=== PATIENT | female | born 1975 | race Caucasian/White ===

== ENCOUNTER 2022-12-20 08:16 | Outpatient (OUT) | payer OTHER, SELFPAY ==
--- NOTE | 2022-12-20 08:23 | XR_ITS ---
The [address] [address] Patient Name: GAMAL FIGUEROA MRN: [id number] date: 1975 Sex: F Assigned Patient Location: SURGOUT Current Patient Location: [facility] Accession/Order Number: [id number] Exam Date: 12/20/2022 09:24 Report Date: 12/20/2022 09:37 At the request of: NEDA CACERES Procedure: XR chest 2V EXAM: XR chest 2V HISTORY: PRE-OP EXAMINATION COMPARISON: None. TECHNIQUE: PA and lateral views of the chest. FINDINGS: The cardiomediastinal silhouette is normal. No focal consolidation is identified. There is no pneumothorax. No pleural effusion is noted. The osseous structures are intact. IMPRESSION: No acute cardiopulmonary process. Electronically authenticated by: DENZEL CONROY Date: 12/20/2022 09:37
[2022-12-20 09:28] LABS: Basophils Absolute Auto 0.1 10^3/uL (0.0-0.1); Basophils Percent Auto 1.5 % (0.2-2.0); Eosinophils Absolute Auto 0.5 10^3/uL (0.0-0.7); Eosinophils Percent Auto 6.4 % (0.9-7.0); Hematocrit 42.5 % (36.0-48.0); Hemoglobin 13.7 g/dL (12.0-16.0); Immature Granulocytes Abs Auto 0.01 10^3/uL (0.00-0.03); Immature Granulocytes Pct Auto 0.1 % (0.0-0.5); Lymphocytes Absolute Auto 2.3 10^3/uL (1.2-3.8); Lymphocytes Percent Auto 31.5 % (20.5-60.0); Mean Corpuscular HGB Conc 32.2 g/dL (29.9-35.2); Mean Corpuscular Hemoglobin 29.1 pg (26.7-34.0); Mean Corpuscular Volume 90.4 fL (81.0-99.0); Mean Platelet Volume 10.6 fL (9.5-13.5); Monocytes Absolute Auto 0.6 10^3/uL (0.3-0.8); Monocytes Percent Auto 8.2 % (1.7-12.0); Neutrophils Absolute Auto 3.9 10^3/uL (1.4-6.5); Neutrophils Percent Auto 52.3 % (43.0-75.0); Platelet Count 236 10^3/uL (150-450); White Blood Count 7.4 10^3/uL (4.0-11.0)
[2022-12-20 09:45] LABS: Partial Thromboplastin Time 25.6 sec (22.3-36.2); Prothrombin Time 9.8 sec (9.0-11.6)
[2022-12-20 09:46] LABS: INR <0.93
[2022-12-20 09:54] LABS: Magnesium 1.8 mg/dL (1.8-2.4); Phosphorus 3.9 mg/dL (2.6-4.7); Thyroid Stimulating Hormone 0.375 uIU/mL (0.358-3.740)
== END 2022-12-20 08:17 | disposition home or self-care (01) ==
LOC: PST 08:17
PROVIDERS: Otolaryngology; PCP Nurse Practitioner
DX: Z01.812 Encounter for preprocedural laboratory examination (principal); Z01.811 Encounter for preprocedural respiratory examination; E07.9 Disorder of thyroid, unspecified
CPT/HCPCS: 36415; 71046; 82310; 83735; 84100; 84443; 85025; 85610; 85730

== ENCOUNTER 2023-01-10 10:33 | Day surgery (SDC) | payer OTHER, SELFPAY ==
[2022-12-20 08:50] VITALS: PULSE 82; TEMP 36.5; O2SAT 98; BMI 37.8
[2023-01-10] VITALS (13 sets, daily range): BP systolic 113–144; BP diastolic 73–89; PULSE 88–107; RESP 12–25; TEMP 36.2–36.3; O2SAT 88–100; BMI 37.6
--- NOTE | 2023-01-10 | OP_ITS ---
OPERATION DATE: ??01/10/2023 PRIMARY CARE PHYSICIAN:? Yuriy Martins M.D. SURGEON:? Rosette Tillman M.D. NYLON WINDER:? ZANDRA Mcknight PREOPERATIVE DIAGNOSIS:? Thyroid mass. POSTOPERATIVE DIAGNOSIS:? Thyroid mass. PROCEDURE:? Removal of thyroid adenoma. ANESTHESIA:? General endotracheal. COMPLICATIONS:? None. FINDINGS:? A 2 cm mass of right paramedian pyramidal lobe.? Frozen section benign. INDICATIONS:? This 47-year-old woman presented with an enlarging extra-thyroidal mass immediately superior to the thyroid isthmus, most consistent with a pyramidal lobe mass.? Frozen section was obtained which showed atypia of undetermined significance.? PROCEDURE:? Patient identified in the holding area and taken back to the OR where she was placed in the supine position.? After induction of general anesthesia, a transverse incision was mapped out following the natural skin crease, two finger breadths above the sternal notch.? The neck was prepped and draped in a sterile fashion. ?Lidocaine 1% with 1:100,000 epinephrine was injected into the incision and, after waiting adequate time for hemostasis, a 10-blade was used to make an incision.? Dissection was carried out with electrocautery through the platysma and the subplatysmal flaps were raised superiorly and inferiorly.? A thyroid retractor was then put in position and the strap muscles were incised in the midline and elevated off of the mass, which was immediately evident.? Then, using sharp and blunt dissection and harmonic scalpel, the mass was dissected free of the larynx and its attachment to the thyroid isthmus.? There was a fairly large caliber vein overlying the mass and this was transected and ligated.? The mass was sent for frozen section, which was benign.? The wound was copiously irrigated.? The strap muscles were re- approximated in the midline, after verifying that there was no bleeding whatsoever, and then the skin was closed with two deep 4-0 Vicryl suture layers and a running 5-0 Monocryl stitch.? A dressing was then placed and the patient was awakened and taken to the recovery room in good condition. ROBBIE
[2023-01-10] MEDS: LACTATED RINGER'S SOLUTION 1,000 ML 50 ML IV (10:56)
[2023-01-10] MEDS: CEFAZOLIN SODIUM/DEXTROSE,ISO 2 GM/50 ML PIGGYBACK IV (13:02)
[2023-01-10] MEDS: LIDOCAINE HCL 1%-EPINEPHRINE 1:100,000 10 ML MDV INJ (13:38)
[2023-01-10] MEDS: BACITRACIN OINTMENT 28.4 GM TUBE 1 APPLIC TOPICAL (14:14)
--- NOTE | 2023-01-10 14:26 | PC.NURSE ---
1342 FAMILY UPDATED 1426 FAMILY UPDATED
--- NOTE | 2023-01-10 16:18 | PC.NURSE ---
Patient is hot and sweaty had a small emesis of mucus. Offered antiemetic but patient refused at this time. feels better after emesis. Currently eating popsicle.
--- NOTE | 2023-01-10 16:51 | PC.NURSE ---
Patient tolerated a popsicle. Nausea is gone but says she is hot. Feeling better at discharge. Thankful for all the help. IV was removed intact and tolerated well.
== END 2023-01-10 16:40 | disposition home or self-care (01) ==
PROVIDERS: PCP Nurse Practitioner; Visit Provider Otolaryngology
PROC: (CPT 320; principal; 2023-01-10 11:50)
DX: E07.9 Disorder of thyroid, unspecified (principal); K50.90 Crohn's disease, unspecified, without complications; F31.9 Bipolar disorder, unspecified; K21.9 Gastro-esophageal reflux disease without esophagitis; G47.33 Obstructive sleep apnea (adult) (pediatric); E66.01 Morbid (severe) obesity due to excess calories; Z86.16 Personal history of COVID-19; I27.20 Pulmonary hypertension, unspecified; Z90.710 Acquired absence of both cervix and uterus; Z98.51 Tubal ligation status; Z68.37 Body mass index [BMI] 37.0-37.9, adult
CPT/HCPCS: 00320; 60200; 36415; 88305; 88331; 95865; 95940; J2704

== ENCOUNTER 2023-03-25 08:49 | Outpatient (OUT) | payer OTHER, SELFPAY ==
[2023-03-25 09:37] LABS: Basophils Absolute Auto 0.1 10^3/uL (0.0-0.1); Basophils Percent Auto 1.5 % (0.2-2.0); Eosinophils Absolute Auto 0.6 10^3/uL (0.0-0.7); Eosinophils Percent Auto 8.7 % (0.9-7.0); Hematocrit 40.6 % (36.0-48.0); Hemoglobin 13.2 g/dL (12.0-16.0); Immature Granulocytes Abs Auto 0.01 10^3/uL (0.00-0.03); Immature Granulocytes Pct Auto 0.1 % (0.0-0.5); Lymphocytes Absolute Auto 2.5 10^3/uL (1.2-3.8); Lymphocytes Percent Auto 37.6 % (20.5-60.0); Mean Corpuscular HGB Conc 32.5 g/dL (29.9-35.2); Mean Corpuscular Hemoglobin 29.6 pg (26.7-34.0); Mean Platelet Volume 10.7 fL (9.5-13.5); Monocytes Absolute Auto 0.6 10^3/uL (0.3-0.8); Monocytes Percent Auto 8.8 % (1.7-12.0); Neutrophils Absolute Auto 2.9 10^3/uL (1.4-6.5); Neutrophils Percent Auto 43.3 % (43.0-75.0); Platelet Count 239 10^3/uL (150-450); Red Blood Count 4.46 10^6/uL (4.20-5.40); Red Cell Distribution Width 12.7 % (11.0-15.0); White Blood Count 6.7 10^3/uL (4.0-11.0)
[2023-03-25 10:51] LABS: Free T4 1.26 ng/dL (0.76-1.46)
[2023-03-25 11:05] LABS: Alanine Aminotransferase 18 U/L (14-59); Albumin Globulin Ratio 0.9; Albumin Level 3.3 g/dL (3.4-5.0); Alkaline Phosphatase 57 U/L (46-116); Anion Gap 9.4; Aspartate Amino Transferase 13 U/L (15-37); Bilirubin Direct 0.1 mg/dL (0.0-0.2); Bilirubin Total 0.5 mg/dL (0.2-1.0); Calcium 8.7 mg/dL (8.5-10.1); Carbon Dioxide 29.7 mmol/L (21.0-32.0); Chloride 105 mmol/L (98-107); Cholesterol 237 mg/dL (<=200); Estimated GFR (African America >60 (>=60); Estimated GFR (Non-African Ame >60 (>=60); Globulin 3.7 g/dL; Glucose 90 mg/dL (74-106); HDL Cholesterol 59 mg/dL (40-60); Potassium 4.1 mmol/L (3.5-5.1); Sodium 140 mmol/L (136-145); Thyroid Stimulating Hormone 0.817 uIU/mL (0.358-3.740); Triglycerides 120 mg/dL (<=150)
== END 2023-03-25 08:50 | disposition home or self-care (01) ==
LOC: LAB 08:52
PROVIDERS: PCP Nurse Practitioner; Visit Provider Nurse Practitioner
DX: E78.5 Hyperlipidemia, unspecified (principal); E89.0 Postprocedural hypothyroidism
CPT/HCPCS: 36415; 80048; 80061; 80076; 84439; 84443; 85025

== ENCOUNTER 2023-05-24 16:30 | Outpatient (OUT) | payer OTHER, SELFPAY ==
--- NOTE | 2023-05-24 | XR_ITS ---
The [address] [address] Patient Name: GAMAL FIGUEROA MRN: [id number] date: 1975 Sex: F Assigned Patient Location: [facility] Current Patient Location: Accession/Order Number: [id number] Exam Date: 05/24/2023 16:36 Report Date: 05/25/2023 10:00 At the request of: NADIR DOMINGUEZ Procedure: XR abdomen 1V EXAM: XR abdomen 1V HISTORY: Kidney stone COMPARISON: None. TECHNIQUE: AP view of the abdomen. FINDINGS: Nonobstructive bowel gas pattern is noted. There is no suspicious calcification. The osseous structures are intact. XR/XR abdomen 1V IMPRESSION: Nonobstructive bowel gas pattern. Constipation. Electronically authenticated by: DENZEL CONROY Date: 05/25/2023 10:00
== END 2023-05-24 16:31 | disposition home or self-care (01) ==
LOC: RAD 16:30
PROVIDERS: PCP Nurse Practitioner; Visit Provider Physician Assistant
DX: R31.0 Gross hematuria (principal); N20.0 Calculus of kidney
CPT/HCPCS: 74018

== ENCOUNTER 2023-06-06 09:21 | Outpatient (REF) | payer OTHER, SELFPAY ==
[2023-06-06 11:40] LABS: SARS-CoV-2 Ag NEGATIVE (NEGATIVE)
[2023-06-07 15:42] LABS: SARS-CoV-2 NAA INCONCLUSIVE (NOT DETECTE)
== END 2023-06-06 09:22 | disposition home or self-care (01) ==
LOC: LAB 09:21
PROVIDERS: PCP Nurse Practitioner; Visit Provider Nurse Practitioner
DX: Z20.822 Contact with and (suspected) exposure to COVID-19 (principal)
CPT/HCPCS: 87635; 87811

== ENCOUNTER 2023-06-08 18:00 | Emergency (ER) | payer OTHER, SELFPAY ==
[2023-06-08 18:22] VITALS: BP 160/108; PULSE 105; RESP 18; TEMP 36.6; O2SAT 96; BMI 37.1
--- NOTE | 2023-06-08 18:39 | ED_ITS ---
HPI - URI/Sore Throat General Chief Complaint: Upper Respiratory Infection Stated Complaint: UPPER RESPIT, VOMITTING, TESTED COVID NEG TUES Time Seen by Provider: 06/08/23 18:32 Source: patient and family Limitations: no limitations History of Present Illness HPI Narrative: 47-year-old female here with onset of symptoms four days ago. She now describes onset of cough congestion runny nose sore throat severe muscle aches and pains lass[place] myalgias mild headache on Monday. Her primary care doctor called in a prescription for doxycycline. An hour after she took the 1st dose today she vomited up. She hasn't developed any other ALLERGIC symptomatology. She did test negative on day two over illness for Covid. I don't believe she had the influenza vaccine. She has not had a severe diarrhea. He is supposed to work today. Is no history of chronic obstructive pulmonary disease asthma emphysema alcohol abuse or any other immunocompromising disorders. She does not use tobacco products. Her vital signs here are stable. Related Data Home Medications Medication Instructions Recorded Confirmed omeprazole 40 mg capsule,delayed 40 mg PO QPM 12/20/22 06/08/23 release atorvastatin 10 mg tablet 10 mg PO .qd 06/08/23 06/08/23 buspirone 7.5 mg tablet 7.5 mg PO BID 06/08/23 06/08/23 doxycycline hyclate 100 mg tablet 100 mg PO BID 06/08/23 06/08/23 Allergies Allergy/AdvReac Type Severity Reaction Status Date / Time penicillin G Allergy Severe Fever Verified 12/20/22 08:47 [facility] Medical History (Updated 06/08/23 @ 18:43 by Tee Ram MD) Arthritis ?M19.90 - Unspecified osteoarthritis, unspecified site (ICD-10) Anxiety ?F41.9 - Anxiety disorder, unspecified (ICD-10) COVID-19 (03/2022) ?U07.1 - COVID-19 (ICD-10) Sleep apnea ?G47.30 - Sleep apnea, unspecified (ICD-10) Hematuria ?R31.9 - Hematuria, unspecified (ICD-10) Thyroid nodule ?E04.1 - Nontoxic single thyroid nodule (ICD-10) Crohn's disease ?K50.90 - Crohn's disease, unspecified, without complications (ICD-10) Palpitations ?R00.2 - Palpitations (ICD-10) High cholesterol ?E78.00 - Pure hypercholesterolemia, unspecified (ICD-10) Surgical History (Updated 12/20/22 @ 09:02 by Vira Webber) History of colectomy (03/2001) ?Z90.49 - Acquired absence of other specified parts of digestive tract (ICD- 10) History of hysterectomy ?Z90.710 - Acquired absence of both cervix and uterus (ICD-10) S/P fine needle aspiration (08/2022) ?Z98.890 - Other specified postprocedural states (ICD-10) S/P cystoscopy ?Z98.890 - Other specified postprocedural states (ICD-10) Family History (Updated 12/20/22 @ 08:52 by Vira Webber) Other Esophageal adenocarcinoma Family history of COPD (chronic obstructive pulmonary disease) Family history of breast cancer Family history of colon cancer Family history of coronary artery disease Family history of diabetes mellitus Family history of heart disease Family history of hypertension Family history of lung cancer Family history of stroke Social History (Updated 12/20/22 @ 08:49 by Vira Webber) Within the past year, how often did you have a drink containing alcohol: never Score interpretation: A score less than 3 is consistent with normal alcohol consumption. 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 Skin is warm and dry mucous members are [employer] thank there is no pallor is no diaphoresis or clamminess. Examination of her chest her lungs are clear with no wheezes rales or rhonchi. Skin integument are normal. Cognition and mentation are normal. He has no abdominal pain. She did have some nausea. Constitutional Vital Signs, click to edit/add: Last Vital Signs Temp 97.9 F 06/08/23 18:22 Pulse 105 H 06/08/23 18:22 Resp 18 06/08/23 18:22 BP 160/108 H 06/08/23 18:22 Pulse Ox 96 06/08/23 18:22 O2 Del Method Room Air 06/08/23 18:22 Course Vital Signs Vital signs: Vital Signs Temperature 97.9 F 06/08/23 18:22 Pulse Rate 105 H 06/08/23 18:22 Respiratory Rate 18 06/08/23 18:22 Blood Pressure 160/108 H 06/08/23 18:22 Pulse Oximetry 96 06/08/23 18:22 Oxygen Delivery Method Room Air 06/08/23 18:22 Temperature 97.9 F 06/08/23 18:22 Pulse Rate 105 H 06/08/23 18:22 Respiratory Rate 18 06/08/23 18:22 Blood Pressure 160/108 H 06/08/23 18:22 Pulse Oximetry 96 06/08/23 18:22 Oxygen Delivery Method Room Air 06/08/23 18:22 MDM - URI/Sore Throat MDM Narrative Medical decision making narrative: we are seeing peak influenza season at this time and she has classic viremia type symptoms. She has no respiratory distress no oscillatory findings normal pulse oximetry. I do not believe she'll benefit from imaging or antivirals at this stage. She already was given an antibiotic by her primary care practitioner. Discharge Plan Discharge Chief Complaint: Upper Respiratory Infection Clinical Impression: Viral infection Patient Disposition: Home, Self-Care Time of Disposition Decision: 18:42 Prescriptions / Home Meds: No Action omeprazole 40 mg capsule,delayed release(DR/EC) 40 mg PO QPM atorvastatin 10 mg tablet 10 mg PO .qd buspirone 7.5 mg tablet 7.5 mg PO BID doxycycline hyclate 100 mg tablet 100 mg PO BID Additional Instructions: stay home from work forty-eight hours. Fever reducers as needed plenty of fluids and plenty of sleep Stand Alone Forms: Portal Instructions Referrals: Essie Ryan NP [Primary Care Provider] - 1 week
== END 2023-06-08 18:49 | disposition home or self-care (01) ==
PROVIDERS: Emergency Provider Emergency Medicine Emergency Medical Services; PCP Nurse Practitioner
DX: Z79.899 Other long term (current) drug therapy (principal); B34.9 Viral infection, unspecified; M19.90 Unspecified osteoarthritis, unspecified site; F41.9 Anxiety disorder, unspecified; G47.30 Sleep apnea, unspecified; K50.90 Crohn's disease, unspecified, without complications; E78.00 Pure hypercholesterolemia, unspecified; Z90.49 Acquired absence of other specified parts of digestive tract; Z90.710 Acquired absence of both cervix and uterus; Z86.16 Personal history of COVID-19; Z98.890 Other specified postprocedural states
CPT/HCPCS: 99281

== ENCOUNTER 2023-07-25 16:32 | Outpatient (OUT) | payer OTHER, SELFPAY ==
--- OUTSIDE RECORDS SUMMARY | 2023-07-24 15:59 | XMS_ITS | CCD ---
Author Name Unknown Address [address] [place] [address] Organization [facility] Care Team Providers Care Status Controller Name Role Phone PHYSICIAN, DEFAULT Unavailable Unavailable PHYSICIAN, DEFAULT Unavailable Unavailable AICHHOLZ, ESSIE Unavailable Unavailable PHYSICIAN, DEFAULT Unavailable Unavailable PHYSICIAN, DEFAULT Unavailable Unavailable AICHHOLZ, ESSIE Unavailable Unavailable PHYSICIAN, DEFAULT Unavailable Unavailable PHYSICIAN, DEFAULT Unavailable Unavailable AICHHOLZ, ESSIE Unavailable Unavailable Alexis Saenz II Unavailable Essie Ryan CNP Primary Care Provider Adán Torres Unavailable Dany ARDON MD, Robert M Unavailable Adán Torres DO Unavailable ESSIE RYAN Primary Care Physician [phone] AicEssie ha CNP Primary Care Provider Adán Torres DO Unavailable Dany ARDON MD, Robert M Unavailable ESSIE RYAN Primary Care Unavailable SHIRAZ BO Attending Unavailable BREEZY MUÑOZ Referring Unavailable ESSIE RYAN Primary Care Unavailable BREEZY MUÑOZ Attending Unavailable BREEZY MUÑOZ Attending Unavailable ESSIE RYAN Primary Care Unavailable CAN VALERA Attending Unavailable CAN VALERA Consulting Unavailable NUIRKA RYAN ESSIE Primary Care Unavailable CAN VALERA Admitting Unavailable DR MARKO PERRY Admitting Unavailable ANDREW López, DR MARKO Lebron Attending Unavailable AICHHOLZ, PRODUCTION PLANNER SCHEDULER ESSIE Primary Care Unavailable DELANEY ., ARTURO Consulting Unavailable MORALES ., DR MARKO Lebron Attending Unavailable MORALES ., DR MARKO Lebron Consulting Unavailable AICHHOLZ, PRODUCTION PLANNER SCHEDULER ESSIE Primary Care Unavailable MORALES ., DR MARKO Lebron Admitting Unavailable APLING, SHARONA B Attending Unavailable APLING, SHARONA B Consulting Unavailable APLING, SHARONA B Admitting Unavailable AICHHOLZ, PRODUCTION PLANNER SCHEDULER ESSIE Primary Care Unavailable PAULETTE PHIPPS Unavailable AICHHOLZ, PRODUCTION PLANNER SCHEDULER ESSIE Primary Care Unavailable GARCIA ., DR BAILEY Attending Unavailable GARCIA ., DR BAILEY Consulting Unavailable GARCIA ., DR BAILEY Admitting Unavailable WEST, DR PAULETTE León Consulting Unavailable MORALES ., DR MARKO Lebron Admitting Unavailable MORALES ., DR MARKO Lebron Attending Unavailable MORALES ., DR MARKO Lebron Consulting Unavailable AICHHOLZ, PRODUCTION PLANNER SCHEDULER ESSIE Primary Care Unavailable DELANEY ., ARTURO Consulting Unavailable MORALES ., DR MARKO Lebron Admitting Unavailable MORALES ., DR MARKO Lebron Attending Unavailable AICHHOLZ, PRODUCTION PLANNER SCHEDULER ESSIE Primary Care Unavailable YOBANY ., DR RASMUSSEN Attending Unavailable AICHHOLZ, PRODUCTION PLANNER SCHEDULER ESSIE Primary Care Unavailable YOBANY ., DR RASMUSSEN Admitting Unavailable WEST, DR PAULETTE León Consulting Unavailable YOBANY ., DR RASMUSSEN Consulting Unavailable AICHHOLZ, PRODUCTION PLANNER SCHEDULER ESSIE Primary Care Unavailable GARCIA ., DR BAILEY Admitting Unavailable GARCIA ., DR BAILEY Attending Unavailable GARCIA ., DR BAILEY Consulting Unavailable ZIEBER, DR PREET Palafox Consulting Unavailable TIMMIS, DR RED Attending Unavailable TIMMIS, DR RED Consulting Unavailable TIMMIS, DR RED Admitting Unavailable AICHHOLZ, PRODUCTION PLANNER SCHEDULER ESSIE Primary Care Unavailable ZIEBER, DR PREET Palafox Consulting Unavailable TIMMIS, DR RED Attending Unavailable TIMMIS, DR RED Consulting Unavailable TIMMIS, DR RED Admitting Unavailable AICHHOLZ, PRODUCTION PLANNER SCHEDULER ESSIE Primary Care Unavailable ZIEBER, DR PREET Palafox Consulting Unavailable TIMMIS, DR RED Attending Unavailable TIMMIS, DR RED Consulting Unavailable AICHHOLZ, PRODUCTION PLANNER SCHEDULER ESSIE Primary Care Unavailable TIMMIS, DR RED Admitting Unavailable WEST, DR PAULETTE León Consulting Unavailable AICHHOLZ, PRODUCTION PLANNER SCHEDULER ESSIE Primary Care Unavailable GARCIA ., DR BAILEY Attending Unavailable GARCIA ., DR BAILEY Consulting Unavailable GARCIA ., DR BAILEY Admitting Unavailable ZIEBER, DR PREET Palafox Consulting Unavailable LAKSHMIPATHY ., NARENDRANATH Attending Marleni vailable AICHHOLZ, PRODUCTION PLANNER SCHEDULER ESSIE Primary Care Unavailable LAKSHMIPATHY ., BYRON Admitting Marleni vailable MORALES ., DR MARKO Lebron Admitting Unavailable MORALES ., DR MARKO Lebron Attending Unavailable MORALES ., DR MARKO Lebron Consulting Unavailable AICHHOLZ, PRODUCTION PLANNER SCHEDULER ESSIE Primary Care Unavailable DELANEY ., ARTURO Consulting Unavailable AICHHOLZ, PRODUCTION PLANNER SCHEDULER ESSIE Primary Care Unavailable WEST, DR PAULETTE León Consulting Unavailable GARCIA ., DR BAILEY Attending Unavailable GARCIA ., DR BAILEY Admitting Unavailable AICHHOLZ, PRODUCTION PLANNER SCHEDULER ESSEI Consulting Unavailable YOBANY ., DR RASMUSSEN Attending Unavailable YOBANY ., DR RASMUSSEN Consulting Unavailable AICHHOLZ, PRODUCTION PLANNER SCHEDULER ESSIE Primary Care Unavailable YOBANY ., DR RASMUSSEN Admitting Unavailable AICHHOLZ, PRODUCTION PLANNER SCHEDULER ESSIE Primary Care Unavailable AICHHOLZ, PRODUCTION PLANNER SCHEDULER ESSIE Attending Unavailable AICHHOLZ, PRODUCTION PLANNER SCHEDULER ESSIE Consulting Unavailable AICHHOLZ, PRODUCTION PLANNER SCHEDULER ESSIE Admitting Unavailable DELANEY ., ARTURO Admitting Unavailable DELANEY ., ARTURO Attending Unavailable AICHHOLZ, PRODUCTION PLANNER SCHEDULER ESSIE Primary Care Unavailable ZIEBER, DR PREET Palafox Consulting Unavailable DELANEY ., ARTURO Consulting Unavailable TIMMIS, DR RED Attending Unavailable TIMMIS, DR RED Consulting Unavailable TIMMIS, DR RED Admitting Unavailable AICHHOLZ, PRODUCTION PLANNER SCHEDULER ESSIE Primary Care Unavailable ZIEBER, DR PREET Palafox Consulting Unavailable DIAB ., EDNA Attending Unavailable DIAB ., EDNA Admitting Unavailable MARKER ., DR JIMÉNEZ Consulting Unavailable AICHHOLZ, PRODUCTION PLANNER SCHEDULER ESSIE Primary Care Unavailable DIAB ., EDNA Consulting Unavailable OWOYELE, MISTY Consulting Unavailable AICHHOLZ, PRODUCTION PLANNER SCHEDULER ESSIE Primary Care Unavailable AICHHOLZ, PRODUCTION PLANNER SCHEDULER ESSIE Attending Unavailable AICHHOLZ, PRODUCTION PLANNER SCHEDULER ESSIE Consulting Unavailable AICHHOLZ, PRODUCTION PLANNER SCHEDULER ESSIE Admitting Unavailable RAIN, DR PREET Palafox Consulting Unavailable MORALES ., DR MARKO Lebron Attending Unavailable MORALES ., DR MARKO Lebron Admitting Unavailable AICHHOLZ, PRODUCTION PLANNER SCHEDULER ESSIE Primary Care Unavailable MISC, DR MCCARTHY Referring Unavailable GARCIA ., DR BAILEY Consulting Unavailable MORALES ., DR MARKO Lebron Consulting Unavailable CAN VALERA Attending Unavailable LANIEAM, Ignacia Attending Unavailable SALAM, Beth Admitting Unavailable SALAM, Beth Referring Unavailable SALAM, Beth Attending Unavailable SALAM, Beth Admitting Unavailable SALAM, Beth Admitting Unavailable SALAM, Beth Attending Unavailable SALAM, Beth Admitting Unavailable SALAM, Beth Attending Unavailable SALAM, Beth Attending Unavailable SHAIKH WHITE Referring Unavailable SALAM, Beth Attending Unavailable SALAM, Beth Referring Unavailable SALAM, Beth Attending Unavailable LESLIE JUNG Attending Unavailable Jose GARCIA Attending Unavailable Jose GARCIA Attending Unavailable AichholEssie Dockery Primary Care Provider EVANS ANDERSON Attending Unavailable ESSIE RYAN Referring Unavailable ESSIE RYAN Primary Care Unavailable Juliana Block Unavailable ESSIE RYAN Attending Unavailable NEDA CACERES Attending Unavailable ESSIE RYAN Attending Unavailable Allergies Allergy Classification Reported Allergen(s) Allergy Type Date of Onset Reaction(s) Facility (5 sources) Penicillins; Translations: [PENICILLINS] Drug allergy (disorder) 09-21-2011 [facility] Repository (3 sources) Penicillin V Drug Allergy Fever [facility] Other (4 sources) Penicillins Drug Allergy 07-27-2016 [facility] (8 sources) History of - penicillin allergy (context-depende nt category); Translations: [H/O: penicillin allergy] Drug allergy [facility] (1 source) Penicillin Drug Allergy Fever [facility] Other Medications Current Medications Medication Drug Class(es) Dates Sig (Normalized) Sig (Original) ambrisentan 10 mg oral tablet (1 source) Endothelin Receptor Antagonist take 10 mg by mouth once daily ambrisentan (LETAIRIS ORAL) Take 10 mg by mouth daily. 0 Active atorvastatin 10 mg oral tablet (5 sources) HMG-CoA Reductase Inhibitor Start: 04-22-2023 atorvastatin 10 mg Tab Refills(s) 0 Start Date: 05/29/23 Status: Ordered Start: 10-13-2020 take 1 tablet by billie th once daily atorvastatin (LIPITOR) 20 mg tablet Take 20 mg by mouth once daily. 0 10/13/2020 Active Comment on above: Take 20 mg by mouth once daily. busPIRone hydrochloride 7.5 mg oral tablet (2 sources) Start: 05-29-2023 busPIRone 7.5 mg oral tablet Refills(s) 0 Start Date: 05/29/23 Status: Ordered take 0.5 tablet by m outh in the morning, then take 0.5 tablet by mouth at bedtime busPIRone (BUSPAR) 15 mg tablet Take 0.5 tablets (7.5 mg total) by mouth in the morning and 0.5 tablets (7.5 mg total) before bedtime. 0 Active carBAMazepine 200 mg oral tablet (4 sources) Mood Stabilizer carBAMazepine (TEGretol) 200 mg tablet Take 300 mg by mouth nightly. moods [facility] 0 Active Comment on above: Take 300 mg by mouth daily at bedtime. cetirizine hydrochloride 5 mg oral tablet (4 sources) Histamine-1 Receptor Antagonist take 1 tablet by mouth once daily cetirizine (ZyrTEC) 5 mg tablet Take 5 mg by mouth daily. 0 Active take 1 tablet by mouth once tracee y cetirizine (ZYRTEC) 10 mg tablet Take 10 mg by mouth once daily. 0 Active Comment on above: Take 10 mg by mouth once daily. citalopram 40 mg oral tablet (4 sources) Serotonin Reuptake Inhibitor take 1 tablet by mouth once daily citalopram (CeleXA) 40 mg tablet Take 40 mg by mouth daily. 0 Active take 1 tablet by mouth once tracee y citalopram (CELEXA) 20 mg tablet Take 20 mg by mouth once daily. 0 Active Comment on above: Take 20 mg by mouth once daily. meloxicam 15 mg oral tablet (3 sources) Nonsteroidal Anti-inflammatory Drug Start: 12-09-2021 take 1 tablet by mouth every twenty-four hours Meloxicam 15 MG 1 tablet Orally Once a day for 30 day(s) Nov, Active Aleve (7 sources) Nonsteroidal Anti-inflammatory Drug Start: 02-25-2022 take 1 mg by mouth every twelve hours Aleve mg, Oral, q12hr, Refills(s) 0 Start Date: 02/25/22 Status: Ordered Prilosec (15 sources) Proton Pump Inhibitor Start: 12-23-2010 Prilosec Oral, Daily, Refills(s) 0 Start Date: 12/23/10 Status: Ordered PriLOSEC 10 MG a s directed Orally Active take 1 capsule by mouth in the m orning omeprazole (PriLOSEC) 40 mg capsule Take 1 capsule (40 mg total) by mouth in the morning. GERD Verified [facility] 0 Active Comment on above: Take 40 mg by mouth once daily. polyethylene glycol 3350 [id number] mg / potassium chloride 1480 mg / sodium bicarbonate 5720 mg / sodium chloride 14088 mg powder for oral solution (3 sources) Osmotic Laxative Start: 11-28-2022 NuLYTELY [place] oral powder for reconstitution See Instructions, 1 EA, Refill(s) 0, See physician instructions prior to procedure., [id number], 155, cm, 11/24/22 13:47:00 EDT, Height/Length Dosing, 88.2, kg, 11/24/22 13:47:00 EDT, Weight Dosing Start Date: 11/28/22 Status: Ordered Completed/Discontinued Medications Medication Drug Class(es) Dates Sig (Normalized) Sig (Original) acetaminophen 325 mg oral tablet (7 sources) Start: 09-22-2016 take 2 tablets by mouth every six hours as needed acetaminophen (TYLENOL) 325 mg tablet Take 2 tablets by mouth every 6 hours as needed. 40 tablet 0 09/22/2016 Active take 1 tablet by mouth every fou r hours Tylenol 325 MG 1 tablet as needed Orally every 4 hrs Active Comment on above: Take 2 tablets by mo uth every 6 hours as needed. 5 ml bupivacaine hydrochloride 5 mg/ml injection (1 source) Amide Local Anesthetic Start: 12-31-2021 End: 12-31-2021 bupivacaine (PF) 0.5 % (5 mg/mL) 5 mL injection Start: 12-31-2021 End: 12-31-2021 bupivacaine (PF) 0.5 % (5 mg /mL) 5 mL injection ciprofloxacin 500 mg oral tablet (1 source) Quinolone Antimicrobial Start: 03-03-2022 take 1 tablet by mouth once daily Cipro 500 mg Tab 500 mg = 1 tab(s), Oral, Daily, Take 1 tablet the day before the procedure and 1 tablet after the procedure, # 2 tab(s), Refills(s) 0, Pharmacy: [facility] #[id number], 155, cm, 03/03/22 15:04:00 EDT, Height/Length Dosing, 90, kg, 02/25/22 10:22:00 EDT, Rubio... Start Date: 03/03/22 Status: Ordered colchicine 0.6 mg oral tablet (1 source) take 1 tablet by mouth in the morning colchicine (COLCRYS) 0.6 mg tablet Take 1 tablet (0.6 mg total) by mouth in the morning. [facility]ified with [facility] 0 Active 1 ml dexamethasone phosphate 4 mg/ml injection (1 source) Corticosteroid Start: 12-31-2021 End: 12-31-2021 dexAMETHasone sodium phosphate 4 mg injection (DECADRON) Start: 12-31-2021 End: 12-31-2021 dexAMETHasone sodium phospha te 4 mg injection (DECADRON) pravastatin sodium 40 mg oral tablet (1 source) HMG-CoA Reductase Inhibitor take 1 tablet by mouth once daily pravastatin (PRAVACHOL) 40 mg tablet Indications: hyperlipidemia Take 1 tablet (40 mg total) by mouth nightly Indications: excessive fat in the blood. hyperlipidemia Ver[facility] 0 Active Problems Active Problems Problem Classification Problem Date Documented Date Episodic/Chronic Abdominal pain (17 sources) Flank pain; Translations: [Abdominal pain] Onset: 03-12-2022 02-25-2022 Episodic Anxiety disorders (7 sources) Anxiety disorder 12-23-2010 Chronic Calculus of urinary tract (11 sources) Kidney stone; Translations: [Calculus of kidney] Onset: 04-22-2022 Episodic Cardiac dysrhythmias (6 sources) Palpitations; Translations: [PALPITATIONS] Onset: 11-08-2022 Episodic Disorders of lipid metabolism (18 sources) Hyperlipidemia; Translations: [Other hyperlipidemia] Onset: 12-14-2020 12-14-2020 Chronic Esophageal disorders (12 sources) Gastroesophageal reflux disease; Translations: [Gastro-esophageal reflux disease without esophagitis] Onset: 09-23-2022 12-16-2020 Chronic Genitourinary symptoms and ill-defined conditions (18 sources) Lora hematuria; Translations: [Blood in urine] Onset: 04-26-2022 02-25-2022 Episodic Mood disorders (18 sources) Bipolar disorder; Translations: [Bipolar disorder, unspecified] Onset: 08-19-2017 12-16-2020 Chronic Osteoarthritis (1 source) Unilateral primary osteoarthritis, right hip; Translations: [UNI PRIM OSTEOARTHRITIS RT HIP] Onset: 06-14-2022 Chronic Other connective tissue disease (3 sources) Trochanteric bursitis of right hip; Translations: [Trochanteric bursitis, right hip] Episodic Other connective tissue disease (1 source) Gluteal tendinitis; Translations: [Unspecified disorder of synovium and tendon, right thigh] Episodic Other diseases of kidney and ureters (1 source) Hydronephrosis; Translations: [Unspecified hydronephrosis] Onset: 04-26-2022 Episodic Other diseases of kidney and ureters (1 source) Hydronephrosis with renal and ureteral calculous obstruction; Translations: [HYDRONPHROS RENL AND URETRL CALCUL OBST] Onset: 11-02-2022 Episodic Other injuries and conditions due to external causes (1 source) Foreign body in colon, sequela; Translations: [FOREIGN BODY IN COLON SEQUELA] Onset: 09-23-2022 Episodic Other non-traumatic joint disorders (1 source) Hip pain Onset: 06-28-2023 Episodic Other nutritional; endocrine; and metabolic disorders (3 sources) Obesity; Translations: [Obesity, unspecified] 09-07-2016 Chronic Other skin disorders (4 sources) Localized swelling, mass and lump, neck; Translations: [LOCALIZED SWELLING MASS AND LUMP NECK] Onset: 10-04-2022 Episodic Pulmonary heart disease (13 sources) Pulmonary hypertension; Translations: [Pulmonary hypertension, unspecified] Onset: 11-08-2022 09-07-2016 Chronic Regional enteritis and ulcerative colitis (20 sources) Crohn's disease; Translations: [Crohn's disease, unspecified, without complications] Onset: 07-27-2016 07-27-2016 Chronic Residual codes; unclassified (3 sources) Obstructive sleep apnea syndrome; Translations: [Obstructive sleep apnea (adult) (pediatric)] 12-14-2020 Chronic Residual codes; unclassified (1 source) Sleep apnea, unspecified; Translations: [SLEEP APNEA UNSPECIFIED] Onset: 09-23-2022 Chronic Residual codes; unclassified (1 source) Acquired absence of other specified parts of digestive tract; Translations: [ACQ ABSENCE OTH PART DIGESTV TRACT] Onset: 09-23-2022 Episodic Residual codes; unclassified (1 source) Acquired absence of both cervix and uterus; Translations: [ACQUIRED ABSENCE BOTH CERVIX AND UTERUS] Onset: 09-23-2022 Episodic Spondylosis; intervertebral disc disorders; other back problems (3 sources) Lumbago-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; Translations: [Other intervertebral disc displacement, lumbosacral region] Onset: 02-21-2022 Chronic Spondylosis; intervertebral disc disorders; other back problems (4 sources) Chronic low back pain; Translations: [Chronic bilateral low back pain without sciatica] Onset: 05-03-2023 Episodic Thyroid disorders (4 sources) Nontoxic multinodular goiter; Translations: [NONTOXIC MULTINODULAR GOITER] Onset: 09-06-2022 Chronic Thyroid disorders (4 sources) Disorder of thyroid, unspecified; Translations: [DISORDER OF THYROID UNSPECIFIED] Onset: 10-18-2022 Episodic Unclassified (1 source) LOW BACK PAIN, UNSPECIFIED; Translations: [LOW BACK PAIN, UNSPECIFIED] Onset: 08-08-2022 Unclassified (2 sources) CONTACT W/AND (SUSP) EXPOS COVID-19; Translations: [CONTACT W/AND (SUSP) EXPOS COVID-19] Onset: 01-27-2022 Past or Other Problems Problem Classification Problem Date Documented Date Episodic/Chronic Intestinal obstruction without hernia (3 sources) Enterolith of small intestine; Translations: [Other impaction of intestine] Onset: 12-14-2020 12-16-2020 Episodic Other connective tissue disease (7 sources) Trochanteric bursitis, right hip; Translations: [Trochanteric bursitis of right hip] Onset: 12-09-2021 Resolved: 12-09-2021 Episodic Other non-traumatic joint disorders (6 sources) Pain in right hip; Translations: [PAIN IN RIGHT HIP] Onset: 11-17-2021 Resolved: 11-17-2021 Episodic Other non-traumatic joint disorders (1 source) Osteophyte, right hip; Translations: [OSTEOPHYTE RIGHT HIP] Onset: 07-15-2022 Episodic Other and delivery including normal (3 sources) Vaginal delivery; Translations: [Encounter for full-term uncomplicated delivery] Onset: 07-27-2016 07-27-2016 Episodic Other screening for suspected conditions (not mental disorders or infectious disease) (8 sources) Encounter for screening for malignant neoplasm of cervix; Translations: [Encounter for screening mammogram for malignant neoplasm of breast] Onset: 02-09-2022 Episodic Ovarian cyst (1 source) Other ovarian cyst, left side; Translations: [OTHER OVARIAN CYST LEFT SIDE] Onset: 06-11-2022 Episodic Residual codes; unclassified (1 source) Family history of malignant neoplasm of breast; Translations: [FAMILY HX MALIG NEOPLASM OF BREAST] Onset: 02-10-2022 Episodic Residual codes; unclassified (1 source) Family history of malignant neoplasm of digestive organs; Translations: [FAM HX MALIG NEOPLASM DIGESTIV ORGN] Onset: 02-10-2022 Episodic Sprains and strains (4 sources) Other sprain of right hip, initial encounter; Translations: [OTHER SPRAIN RIGHT HIP INITIAL ENC] Onset: 08-18-2022 Episodic Unclassified (1 source) nephrolithiasis( Confirmed ) 12-23-2010 Unclassified (6 sources) nephrolithiasis 12-23-2010 Unclassified (1 source) CONTACT W/AND (SUSP) EXPOS COVID-19; Translations: [CONTACT W/AND (SUSP) EXPOS COVID-19] Onset: 01-24-2022 Viral infection (2 sources) COVID-19; Translations: [COVID-19] Onset: 01-27-2022 Results Test Name Value Interpretation Reference Range Facil ity COVID/FLU/RSV RT-PCRon 07-11 SARS-CoV-2 (COVID-19) RNA IZAIAH+probe Ql (Unsp spec) Positive [place] Other COVID/FLU/RSV RT-PCR Negative [facility] Other Ambulatory Visit Summaryon 1 07-30-2022 Ambulatory Visit Summary STACEY SAHU :1975 Visit Date:05/29/2023 Ambulatory Visit Instructions Your Diagnosis Kidney stones Gross hematuria Tests Performed Urnls Dip Stick Auto w/o Microscopy POC 69107 Your Care Team Attending Physician - JOSE FELIX, Jose Palafox Primary Care Physician - ESSIE RYAN CNP This Is Your Medications List Contact prescribing physician if questions or concerns atorvastatin (atorvastatin 10 mg Tab) busPIRone (busPIRone 7.5 mg oral tablet) naproxen (Aleve) omeprazole (Prilosec) Procedures Performed Hemithyroidectomy (12/2022), Hysterectomy, laparoscopy, partial colectomy, Tonsillectomy, tubal ligation. Discharge Vitals Heart Rate (Peripheral) 88 Respiratory Rate 16 Blood Pressure 131/83 Height 155 cm Height 61 in Weight 90.7 kg Weight 199.54 lb BMI 37.75 What to do next You Need to Schedule the Following Appointments Follow Up with JOSE FELIX, NORMA Krueger When: Comments: 4 mos w/ metabolic w/u Where: [facility] [address], [place] [address]- [phone] Medications What How Much When Instructions Unchanged atorvastatin (atorvastatin 10 mg Tab) Contact prescribing physician if questions or concerns Unchanged busPIRone (busPIRone 7.5 mg oral tablet) Contact prescribing physician if questions or concerns Unchanged naproxen (Aleve) Every 12 hours Contact prescribing physician if questions or concerns Unchanged omeprazole (Prilosec) Every day Contact prescribing physician if questions or concerns Test Results Urnls Dip Stick Auto w/o Microscopy POC 66666 (05/29/2023) Bilirubin Urine Dipstick - Negative Blood Urine Dipstick - 3+ Large Glucose Urine Dipstick - Negative Ketones Urine Dipstick - Negative Leukocytes Urine Dipstick - Negative Nitrite Urine Dipstick - Negative Protein Urine Dipstick - Negative Specific [place] Urine Dipstick - >=1.030 Urine Appearance Urine Dipstick - Clear Urine Color Urine Dipstick - Yellow Urobilinogen Urine Dipstick - Normal 0.2-1 EU/dl pH Urine Dipstick - 5.5 Allergies H/O: penicillin allergy Problems Ongoing - Any problem that you are currently receiving treatment for. Bipolar depression Chronic GERD Crohn's disease, small intestine Flank pain Gross hematuria Hyperlipidemia Kidney stones Nocturia PAH (pulmonary artery hypertension) Historical - Any problem that you are no longer receiving treatment for. anxiety disorder crohn's disease depression hypercholesterolem ia nephrolithiasis Patient Survey You may receive a survey via text or e-mail asking about your office visit. Please share your experience with us by completing your survey. We appreciate your feedback and thank you for choosing us for your care. Education Materials Kidney Stones Kidney stones are rock-like masses that form inside of the kidneys. Kidneys are organs that make pee (urine). A kidney stone may move into other parts of the urinary tract, including: ? The tubes that connect the kidneys to the bladder (ureters). ? The bladder. ? The tube that carries urine out of the body (urethra). Kidney stones can cause very bad pain and can block the flow of pee. The stone usually leaves your body (passes) through your pee. You may need to have a doctor take out the stone. What are the causes? Kidney stones may be caused by: ? A condition in which certain glands make too much parathyroid hormone (primary hyperparathyroidis m). ? A buildup of a type of crystals in the bladder made of a chemical called uric acid. The body makes uric acid when you eat certain foods. ? Narrowing (stricture) of one or both of the ureters. ? A kidney blockage that you were born with. ? Past surgery on the kidney or the ureters, such as gastric bypass surgery. What increases the risk? You are more likely to develop this condition if: ? You have had a kidney stone in the past. ? You have a family history of kidney stones. ? You do not drink enough water. ? You eat a diet that is high in protein, salt (sodium), or sugar. ? You are overweight or very overweight (obese). What are the signs or symptoms? Symptoms of a kidney stone may include: ? Pain in the side of the belly, right below the ribs (flank pain). Pain usually spreads (radiates) to the groin. ? Needing to pee often or right away (urgently). ? Pain when going pee (urinating). ? Blood in your pee (hematuria). ? Feeling like you may vomit (nauseous). ? Vomiting. ? Fever and chills. How is this treated? Treatment depends on the size, location, and makeup of the kidney stones. The stones will often pass out of the body through peeing. You may need to: ? Drink more fluid to help pass the stone. In some cases, you may be given fluids through an IV tube put into one of your veins at the hospital. ? Take medicine for pain. ? Santy (more content not included)... Normal [facility] Patient Educationon 05-29-20 23 Patient Education Urology Kidney Stones Kidney stones are rock-like masses that form inside of the kidneys. Kidneys are organs that make pee (urine). A kidney stone may move into other parts of the urinary tract, including: ? The tubes that connect the kidneys to the bladder (ureters). ? The bladder. ? The tube that carries urine out of the body (urethra). Kidney stones can cause very bad pain and can block the flow of pee. The stone usually leaves your body (passes) through your pee. You may need to have a doctor take out the stone. What are the causes? Kidney stones may be caused by: ? A condition in which certain glands make too much parathyroid hormone (primary hyperparathyroidis m). ? A buildup of a type of crystals in the bladder made of a chemical called uric acid. The body makes uric acid when you eat certain foods. ? Narrowing (stricture) of one or both of the ureters. ? A kidney blockage that you were born with. ? Past surgery on the kidney or the ureters, such as gastric bypass surgery. What increases the risk? You are more likely to develop this condition if: ? You have had a kidney stone in the past. ? You have a family history of kidney stones. ? You do not drink enough water. ? You eat a diet that is high in protein, salt (sodium), or sugar. ? You are overweight or very overweight (obese). What are the signs or symptoms? Symptoms of a kidney stone may include: ? Pain in the side of the belly, right below the ribs (flank pain). Pain usually spreads (radiates) to the groin. ? Needing to pee often or right away (urgently). ? Pain when going pee (urinating). ? Blood in your pee (hematuria). ? Feeling like you may vomit (nauseous). ? Vomiting. ? Fever and chills. How is this treated? Treatment depends on the size, location, and makeup of the kidney stones. The stones will often pass out of the body through peeing. You may need to: ? Drink more fluid to help pass the stone. In some cases, you may be given fluids through an IV tube put into one of your veins at the hospital. ? Take medicine for pain. ? Make changes in your diet to help keep kidney stones from coming back. Sometimes, medical procedures are needed to remove a kidney stone. This may involve: ? A procedure to break up kidney stones using a beam of light (laser) or shock waves. ? Surgery to remove the kidney stones. Follow these instructions at home: Medicines ? Take xeiv-gyl-wszsjsh and prescription medicines only as told by your doctor. ? Ask your doctor if the medicine prescribed to you requires you to avoid driving or using heavy machinery. Eating and drinking ? Drink enough fluid to keep your pee pale yellow. You may be told to drink at least 8?10 glasses of water each day. This will help you pass the stone. ? If told by your doctor, change your diet. This may include: ? Limiting how much salt you eat. ? Eating more fruits and vegetables. ? Limiting how much meat, poultry, fish, and eggs you eat. ? Follow instructions from your doctor about eating or drinking restrictions. General instructions ? Collect pee samples as told by your doctor. You may need to collect a pee sample: ? 24 hours after a stone comes out. ? 8?12 weeks after a stone comes out, and every 6?12 months after that. ? Strain your pee every time you pee (urinate), for as long as told. Use the strainer that your doctor recommends. ? Do not throw out the stone. Keep it so that it can be tested by your doctor. ? Keep all follow-up visits as told by your doctor. This is important. You may need follow-up tests. How is this prevented? To prevent another kidney stone: ? Drink enough fluid to keep your pee pale yellow. This is the best way to prevent kidney stones. ? Eat healthy foods. ? Avoid certain foods as told by your doctor. You may be told to eat less protein. ? Stay at a healthy weight. Where to find more information ? National Kidney Foundation (NKF): www.kidney.org ? [employer] (UCF): www.urologyhealth. org Contact a doctor if: ? You have pain that gets worse or does not get better with medicine. Get help right away if: ? You have a fever or chills. ? You get very bad pain. ? You get new pain in your belly (abdomen). ? You pass out (faint). ? You cannot pee. Summary ? Kidney stones are rock-like masses that form inside of the kidneys. ? Kidney stones can cause very bad pain and can block the flow of pee. ? The stones will often pass out of the body through peeing. ? Drink enough fluid to keep your pee pale yellow. This information is not intended to replace advice given to you by your health care provider. Make sure you discuss any questions you have with your health care provider. Document Revised: 02/14/2022 Document Reviewed: 02/14/2022 [employer] Patient Education ? 2022 [email or web address]. Normal [facility] Urology Office/Clinic Noteon 05-29-2023 Urology Office/Clinic Note Chief Complaint gross hemturia and kidney stones HPI Staff 6m KUB DX: Gross Hematuria, Kidney Stones & Nocturia. *No Urology Meds NEG Cysto 03/08/22 & NEG CTU 03/2022 CT ap w/ (ordered by GI) 12/06/22 Abd XR 01/05/23 (ordered by GI as well) KUB 05/24/23 Dysuria: no Incomplete bladder emptying: no Hematuria: no Frequency: no Urgency: no Nocturia: 1-2x Stream: good steady Leaking: no Post void dripping: no Wearing pads/ Depends: no Urge incontinence: no Stress incontinence: with laughing Incontinence without Sensory Awareness: no Abdominal pain: no Flank pain: no Sexual complaints: no History of Present Illness Tests reviewed: reviewed UA, KUB, CT scan I have reviewed the previous health record information and history for this patient from [facility]. I have reviewed and verified the staff HPI to be accurate for this encounter. Review of Systems PHQ Score Initial Depression Screen Score: 0 SCORE ROS - Provider Constitutional: denies weight loss, denies hot flashes. Eyes: denies eye problems. Gastrointestinal: denies nausea, denies vomiting. Cardiovascular: denies chest pain or angina. Integumentary: no dryness Musculoskeletal: denies musculoskeletal symptoms. ENMT: denies otolaryngeal symptoms. Respiratory: no shortness of breath. Heme/Lymph: denies easy bleeding tendency, denies easy bruising tendency. Psychiatric: no confusion, no anxiety. Genitourinary: See HPI. Physical Exam Vitals & Measurements HR: 88(Peripheral) RR: 16 BP: 131/83 HT: 61 in HT: 155 cm WT: 90.7 kg WT: 199.54 lb BMI: 37.75 General Appearance: alert , no acute distress, well nourished, well developed female. Genitourinary: bladder nonpalpable, no flank pain. Assessment/Plan 1. Kidney stones (N20.0: Calculus of kidney) S/p ESWL [address] Verduzco. CTU 04/22/22 [facility] - 6mm R renal stone and 3mm L renal stone. KUB 10/26/22 - no stones id'd. CT AP w con 12/06/22 [facility] - 5mm RLP stone and 2mm LLP stone. Mild fulness at R renal pelvis with tapering at [facility]. KUB 01/05/23 [facility] - 4mm renal stone in RLP. KUB 05/24/23 [facility] - no stones id'd. Discussed imaging results. Advised pt the KUB from December suggest she passed a stone or it may not have been visualizable. Denies any stone episodes since last encounter. Denies any flank pain. Discussed she likely has not passed stone due to lack of pain. Discussed metabolic workup to evaluate reason for stone formation. Pt agrees to complete this. -24hr urine and labs 2. Gross hematuria (R31.0: Gross hematuria) Hx of hysterectomy. S/p Cysto 03/08/22. Neg CTU 04/22/22. Chronic, used to see blood intermittently. Reports she saw blood a few months ago but has not seen any recently. UA today shows large blood. Denies difficulty or pain with urination. Wipes front to back. Discussed stones could possibly cause this but is not likely given current location of stones. Follow-up With When Contact Information JOSE FELIX, Jose Palafox, [facility] [address], [place] [address]- [phone] Additional Instructions: 4 mos w/ metabolic w/u Patient Education Kidney Stones, Insk-sb-Kxvo IImani, personally scribed for Dr. Garcia on 05/29/2023 15:19:03. . Documentation recorded by the scribe, Imani Renae, accurately reflects the services(s) I performed and decisions made by me. Authenticated by Dr. Garcia on 05/29/2023 15:21:13. Problem List/Past Medical History Ongoing Bipolar depression Chronic GERD Crohn's disease, small intestine Flank pain Gross hematuria Hyperlipidemia Kidney stones Nocturia PAH (pulmonary artery hypertension) Historical anxiety disorder crohn's disease depression hypercholesterolem ia nephrolithiasis Procedure/Surgical History Hemithyroidectomy (12/2022), Hysterectomy, laparoscopy, partial colectomy, Tonsillectomy, tubal ligation. Medications Aleve, Oral, q12hr atorvastatin 10 mg Tab busPIRone 7.5 mg oral tablet Prilosec, Oral, Daily Allergies H/O: penicillin allergy Social History Alcohol - Denies Alcohol Use, 12/23/2010 Substance Abuse - Denies Substance Abuse, 12/23/2010 Tobacco Never (less than 100 in lifetime) Tobacco Use:. Never Smokeless Tobacco Use:., 02/02/2023 Past, 12/23/2010 Family History Breast cancer: Mother. Coronary artery disease: Father. Diabetes mellitus type 2: Father. Hypertension: Father. Osteoporosis: Mother. Primary malignant neoplasm of colon: Aunt. Immunizations Vaccine Date Status influenza, whole 05/03/2012 Recorded Lab Results Ambulatory Point of Care Results Bilirubin Urine Dipstick: Negative (05/29/23 14:41:00) Blood Urine Dipstick: 3+ Large (05/29/23 14:41:00) Glucose Urine Dipstick: Negative (05/29/23 14:41:00) Ketones Urine Dipstick: Negative (05/29/23 14:41:00) Leukocytes Urine Dipstick: Negative (05/29/23 14:41:00) Nitrite Urine Dipstick: Negative (more content not included)... Normal [facility] Comment on above: Result Comment: Elec tronically Signed By: Jose GARCIA MD\.br\Date and Time Signed: 05/29/23 15:21 EST\.br\Electronically Co-Signed By: Imani Renae\.br\Date and Time Co-Signed: 05/29/23 15:19 EST Gastroenterology Office/Clin ic Noteon 02-06-2023 Gastroenterology Office/Clinic Note Chief Complaint f/u colon HPI Staff This is a 47 year old female who presents today for a follow up to Colonoscopy. History of Present Illness Stacey Sahu is a 47-year-old white female who presents today for a follow-up. She was last seen on 11/24/2022. She has a history of Crohn's disease diagnosed 21 years ago. She had partial small bowel obstruction surgery and did not received any treatment. She described 2 flare-ups over the last 2 years requiring prednisone. Since then, we proceeded with a CT enterography, fecal calprotectin, CRP, and colonoscopy. Her colonoscopy was done on 01/03/2023 which showed evidence of ileocolonic anastomosis at the right side of the colon with stricture. I was able to partially peek at the terminal ileum which appears to be normal mucosa. The rest of the colon appears to be normal. She has small hemorrhoids. Her x-ray did not show any active problems. Her CT scan did not show any active inflammation. We also did a stool test called fecal calprotectin and blood test called CRP. Her CRP is normal. Fecal calprotectin is still pending. Review of Systems PHQ Score Initial Depression Screen Score: 0 Constitutional: no fever, no chills, no sweats, no weakness Skin: no Jaundice, no rash, no lesions, no petechiae ENMT: no ear pain, no sore throat, no congestion, no hoarseness Respiratory: no shortness of breath, no cough, no orthopnea, no wheezing Cardiovascular: no chest pain, no palpitations, no edema Gastrointestinal: no nausea, no vomiting, no diarrhea, no constipation, no GI bleeding, no abdominal pain, no dysphagia, no bloating, no heartburn Genitourinary: no dysuria, no hematuria, no discharge, no pain Musculoskeletal: no back pain, no trauma Neurologic: no numbness, no sleeping problems Additional ROS info: Except as noted in the above Review of Systems and in the History of Present Illness all other systems have been reviewed and are negative or noncontributory. Physical Exam Vitals & Measurements HR: 84(Peripheral) RR: 16 BP: 132/84 HT: 61 in HT: 155 cm WT: 90.4 kg WT: 198.88 lb BMI: 37.63 Constitutional: Appearance: well developed Skin: Inspection: no rashes, ulcers, icterus, or telangiectasias. Eyes: Conjunctivae/lids: normal conjunctivae and lids. ENMT: Hearing: within normal limits. Lips/Teeth/Gums: normal oral mucosa Neck: Neck: normal motion, central trachea Respiratory: Percussion: thorax normoresonant. Auscultation: normal breath sounds; no rubs, wheezes, rale or rhonchi. Cardiovascular: Auscultation: normal rhythm, S1 and S2; no rubs, murmurs, or gallop. Peripheral: no edema Gastrointestinal/A bdomen: Abdomen: normal consistency and bowel sounds; no tenderness or masses. Liver/Spleen: normal size and consistency, not palpable. Rectal: deferred Musculoskeletal: Gait/Station: normal gait Assessment/Plan 1. Crohn's disease, small intestine (K50.00: Crohn's disease of small intestine without complications) The patient was diagnosed at an outside facility almost 21 years ago with a history of Crohn's disease based on inflammation seen during surgery secondary to obstructive symptoms. She is status post right hemicolectomy with ileocolonic anastomosis. She has no treatment for 21 years. Her recent colonoscopy showed normal colonic mucosa and normal anastomosis. There was a stricture at the ileocolonic anastomosis preventing full intubation of the new terminal ileum, but peaking at the neutromatic mucosa appears to be normal. CRP is negative. CT enterography is normal. Pending fecal calprotectin. She is asymptomatic currently. I will hold on any treatment until we have further evidence of Crohn's disease. 2. Chronic GERD (K21.9: Gastro-esophageal reflux disease without esophagitis) She will continue with PPI as needed. Portions of this record may have been created with voice recognition artificial intelligence software, specifically [employer], [employer] and or [employer]. Substitutions may have occurred due to the inherent limitations of voice recognition and artificial intelligence software. ATTESTATION: Documentation services were performed after patient or guardian consented to allow [employer] to record this visit. DELVIN field property loss specialist and provider reviewed before signing. DELVIN: Prerna Rodriguezon/Pasted by Ana Rosa Iglesias. Follow-up No qualifying data available Problem List/Past Medical History Ongoing Bipolar depression Chronic GERD Crohn's disease, small intestine Flank pain Gross hematuria Hyperlipidemia Kidney stones Nocturia PAH (pulmonary artery hypertension) Historical anxiety disorder crohn's disease depression hypercholesterolem ia nephrolithiasis Procedure/Surgical History Hysterectomy, laparoscopy, partial colectomy, Tonsillectomy, tubal ligation. Medications Aleve, Oral, q12hr NuLYTELY [place] oral powder for reconstitution, See Instructions Prilosec, Oral, Daily Allergies H/O: penic (more content not included)... Normal [facility] Comment on above: Result Comment: Elec tronically Signed By: Ana Rosa Iglesias\.br\Date and Time Signed: 02/02/23 15:48 EDT\.br\Electronically Co-Signed By: Ignacia KHAN MD\.br\Date and Time Co-Signed: 02/06/23 14:00 EDT Calprotectin, Fecalon 2022 Calprotectin (Stl) [Mass/Mass] 87 mcg/gm Invalid Interpretation Code 0-120 [facility] Comment on above: Result Comment: Conc entration Interpretation Follow-Up < 5 - 50 ug/g Normal None >50 -120 ug/g Borderline Re-evaluate in 4-6 weeks >120 ug/g Abnormal Repeat as clinically indicated Performed at: [facility] [id number] MD Kdoy Hayes Performed By: #### 1 [id number] ####[facility] [address] [place] [address] Ambulatory Visit Summaryon 0 02-02-2023 Ambulatory Visit Summary STACEY SAHU :1975 Visit Date:02/02/2023 Ambulatory Visit Instructions Your Diagnosis Crohn's disease, small intestine Chronic GERD Your Care Team Attending Physician - Ignacia KHAN MD Primary Care Physician - ESSIE RYAN CNP This Is Your Medications List Contact prescribing physician if questions or concerns naproxen (Aleve) omeprazole (Prilosec) polyethylene glycol 3350 with electrolytes (NuLYTELY [place] oral powder for reconstitution) Procedures Performed Hysterectomy, laparoscopy, partial colectomy, Tonsillectomy, tubal ligation. Discharge Vitals Heart Rate (Peripheral) 84 Respiratory Rate 16 Blood Pressure 132/84 Height 155 cm Height 61 in Weight 90.4 kg Weight 198.88 lb BMI 37.63 What to do next Scheduled Follow-Up Appointments Monday 2:30 PM EST With: JOSE FELIX, Jose Palafox Where: [facility] Auto Diffon 02-01-2023 Basophils/100 WBC (Bld) 2.7 % High 0.0-2.0 [facility] Comment on above: Order Comment: Order Added by Discern Expert. Performed By: #### 2 [id number], [id number], 1264791, [id number], [id number] ####[facility] [address] [place] [address] Basophils/Leukocyte s Auto (Bld) [Pure # fraction] 0.2 E9/L Normal 0.0-0.2 [facility] Comment on above: Order Comment: Order Added by Discern Expert. Performed By: #### 2 [id number], [id number], 1045319, [id number], [id number] ####[place] [address] [place] [address] Eosinophils/100 WBC (Bld) 8.5 % High 0.0-8.0 [facility] Comment on above: Order Comment: Order Added by Discern Expert. Performed By: #### 2 037772, 2640826, 5682760, [id number], [id number] ####[address] [place] [address] Eosinophils/Leukocy karina Auto (Bld) [Pure # fraction] 0.7 E9/L High 0.0-0.5 [facility] Comment on above: Order Comment: Order Added by Discern Expert. Performed By: #### 2 206344, 5875007, 6472148, [id number], [id number] ####[facility] [address] [place] [address] Lymphocytes/100 WBC (Bld) 34.8 % Normal 14.0-50.0 [facility] Comment on above: Order Comment: Order Added by Discern Expert. Performed By: #### 2 876664, 9601337, 8140697, 69936132, 5773411 ####[facility] [address] [place] [address] Lymphocytes/Leukocy karina Auto (Bld) [Pure # fraction] 2.8 E9/L Normal 1.0-4.0 [facility] Comment on above: Order Comment: Order Added by Discern Expert. Performed By: #### 2 812599, 3247891, 2530014, 45105429, 7104415 ####[facility] [address] [place] [address] Monocytes/100 WBC (Bld) 9.4 % Normal 4.0-14.0 [facility] Comment on above: Order Comment: Order Added by Discern Expert. Performed By: #### 2 815248, 8567531, 9705026, [id number], 6798143 ####[address] [place] [address] Monocytes/Leukocyte s Auto (Bld) [Pure # fraction] 0.8 E9/L Normal 0.2-1.0 [facility] Comment on above: Order Comment: Order Added by Roma Expert. Performed By: #### 2 380579, 4830100, 6155126, 12944545, 4821178 ####[address] [place] [address] Neutrophils/100 WBC (Bld) 44.6 % Normal 36.0-75.0 [facility] Comment on above: Order Comment: Order Added by Roma Expert. Performed By: #### 2 909599, 2518836, 8235017, 17899451, 6608745 ####[address] [place] [address] Neutrophils/Leukocy karina Auto (Bld) [Pure # fraction] 3.5 E9/L Normal 2.0-7.5 [facility] Comment on above: Order Comment: Order Added by Roma Expert. Performed By: #### 2 809493, 9898612, 4562668, 42212108, 7103827 ####[address] [place] [address] CBC w/ Auto Diffon 3 Erythrocyte distribution width (RBC) [Ratio] 13.6 % Normal 10.9-14.2 [facility] Comment on above: Performed By: #### 2 764052, 1778286, 5523101, 66394115, 2633789 ####[facility] [address] [place] [id number] Hematocrit (Bld) [Volume fraction] 39.5 % Normal 34.0-46.0 [facility] Comment on above: Performed By: #### 2 628364, 0054956, 6211998, 74112803, 9109672 ####[place] [id number] Hemoglobin (Bld) [Mass/Vol] 13.3 g/dL Normal 12.0-16.0 [facility] Comment on above: Performed By: #### 2 478065, 7628503, 6519345, 91067450, 8250568 ####[place] [id number] MCH (RBC) [Entitic mass] 29.1 pg Normal 27.0-34.0 [facility] Comment on above: Performed By: #### 2 157541, 0446642, 9089462, 55823337, 1472211 ####[place] [id number] MCHC (RBC) [Mass/Vol] 33.7 g/dL Normal 31.4-36.0 [facility] Comment on above: Performed By: #### 2 994205, 3989056, 3748310, 27396136, 6928369 ####[place] [id number] MCV (RBC) [Entitic vol] 86.4 fL Normal 80.0-100.0 [facility] Comment on above: Performed By: #### 2 808661, 8462731, 7225262, 31046313, 0373597 ####[address] [address] Platelet mean volume (Bld) [Entitic vol] 8.9 fL Normal 6.4-10.8 [facility] Comment on above: Performed By: #### 2 496163, 1033570, 0739411, 07500470, 0443202 ####[facility] [address] [place] [address] Platelets (Bld) [#/Vol] 274.0 E9/L Normal 150.0-500.0 [facility] Comment on above: Performed By: #### 2 383029, 3300409, 4125216, 81624817, 2166955 ####[facility] [address] [place] [address] RBC (Bld) [#/Vol] 4.6 E12/L Normal 4.3-5.9 [facility] Comment on above: Performed By: #### 2 832953, 0143439, 3555337, 38927556, 2793305 ####[facility] [address] [place] [address] WBC corrected for nucl RBC Auto (Bld) [#/Vol] 8.0 E9/L Normal 4.0-11.0 [facility] Comment on above: Performed By: #### 2 454339, 2259737, 0095548, 89570121, 9847677 ####[facility] [address] [place] [address] CHEMISTRYOrdered By: SYSTEM SYSTEM on 02-01-2023 Albumin [Mass/Vol] 4.0 g/dL Normal 3.3 - 5.0 gm/dL F [facility] Remisol Albumin/Globulin [Mass ratio] 1.2 {ratio} Normal 1.1 - 2.2 [facility] Remisol ALP [Catalytic activity/Vol] 53 [iU]/d Normal 21 - 98 Int._Unit/L [facility] Remisol ALT No additional P-5'-P [Catalytic activity/Vol] 18 [iU]/d Normal 6 - 46 Int._Unit/L [facility] Remisol Anion gap [Moles/Vol] 13 mmol/L Normal 6 - 16 mEq/L [facility] Remisol AST [Catalytic activity/Vol] 18 [iU]/d Normal 5 - 43 Int._Unit/L [facility] Remisol Bilirubin [Mass/Vol] 0.4 mg/dL Normal 0.0 - 1.1 mg/dL [facility] Remisol Calcium [Mass/Vol] 9.1 mg/dL Normal 8.9 - 11.1 mg/dL FT Remisol Chloride [Moles/Vol] 106 mmol/L Normal 101 - 111 mmol/L [facility] Remisol CO2 [Moles/Vol] 24 mmol/L Normal 21 - 31 mmol/L [facility] Remisol Creatinine [Mass/Vol] 0.9 mg/dL Normal 0.5 - 1.3 mg/dL [facility] Remisol CRP [Mass/Vol] 0.7 mg/dL Normal <=1.9mg/dL FT Remis ol GFR/1.73 sq M.predicted among non-blacks MDRD (S/P/Bld) [Vol rate/Area] 80 mL/min/1.73 m2 Normal >=59mL/min/1.73 m2 [facility] Chem S Globulin (S) [Mass/Vol] 3.2 g/dL Normal 1.4 - 4.0 gm/dL [facility] Remisol Glucose [Mass/Vol] 99 mg/dL Normal 55 - 199 mg/dL FT Remisol Potassium [Moles/Vol] 3.9 mmol/L Normal 3.5 - 5.3 mmol/L FT Remisol Protein [Mass/Vol] 7.2 g/dL Normal 6.0 - 7.8 gm/dL F [facility] [place] [facility] Remisol Sodium [Moles/Vol] 139 mmol/L Normal 135 - 145 mmol/L FT Remisol Urea nitrogen [Mass/Vol] 15 mg/dL Normal 5 - 21 mg/dL FT Remisol Urea nitrogen/Creatinine [Mass ratio] 17 mg/mg Normal 10 - 20 FT Remisol CMPon 02-01-2023 Albumin [Mass/Vol] 4.0 g/dL Normal 3.3-5.0 [facility] Comment on above: Performed By: #### 2 711925, 7634178, 2868018, [id number], 9645571 ####[facility] [address] [place] [address] Albumin/Globulin (S) [Mass conc ratio] 1.2 Normal 1.1-2.2 [facility] Comment on above: Performed By: #### 2 962778, 6157863, 0333003, 51909002, 5382270 ####[facility] [address] [place] [address] ALP [Catalytic activity/Vol] 53 Int._Unit/L Normal 21-98 [facility] Comment on above: Performed By: #### 2 270829, 4072708, 3907481, 06437348, 5403793 ####[facility] [address] [place] [address] ALT No additional P-5'-P [Catalytic activity/Vol] 18 Int._Unit/L Normal 6-46 [facility] Comment on above: Performed By: #### 2 845694, 4636341, 8404168, 04868151, 8241704 ####[facility] [address] [place] [address] Anion gap [Moles/Vol] 13 mmol/L Normal 6-16 [facility] Comment on above: Performed By: #### 2 409927, 1624150, 4420069, 44346072, 0731621 ####[facility] [address] [place] [address] AST [Catalytic activity/Vol] 18 Int._Unit/L Normal 5-43 [facility] Comment on above: Performed By: #### 2 102061, 0646736, 3318746, 28879350, 9616552 ####[facility] [address] [place] [address] Bilirubin [Mass/Vol] 0.4 mg/dL Normal 0.0-1.1 [facility] Comment on above: Performed By: #### 2 252008, 4798593, 8239140, 07375403, 4988212 ####[facility] [address] [place] [address] Calcium [Mass/Vol] 9.1 mg/dL Normal 8.9-11.1 [facility] Comment on above: Performed By: #### 2 392840, 4003741, 7724303, 29565181, 6985618 ####[facility] [address] [place] [address] Chloride [Moles/Vol] 106 mmol/L Normal 101-111 [facility] Comment on above: Performed By: #### 2 147162, 9016104, 8536958, 28971788, 0718244 ####[facility] [address] [place] [address] CO2 [Moles/Vol] 24 mmol/L Normal 21-31 [facility] Comment on above: Performed By: #### 2 965524, 2812319, 5763751, 27817941, 2927221 ####[facility] [address] [place] [address] Creatinine [Mass/Vol] 0.9 mg/dL Normal 0.5-1.3 [facility] Comment on above: Performed By: #### 2 618711, 1532505, 4089716, 11502132, 4615670 ####[facility] [address] [place] [address] Globulin (S) [Mass/Vol] 3.2 g/dL Normal 1.4-4.0 [facility] Comment on above: Performed By: #### 2 445733, 9348684, 4611088, 89586303, 3295762 ####[facility] [address] [place] [address] Glucose [Mass/Vol] 99 mg/dL Normal 55-199 [facility] Comment on above: Result Comment: If t his glucose result represents a fasting glucose, interpretation should refer to the following reference range: 55-99 mg/dL Performed By: #### 2 193632, 0645460, 7364588, 03603199, 3310580 ####[facility] [address] [place] [address] Potassium [Moles/Vol] 3.9 mmol/L Normal 3.5-5.3 [facility] Comment on above: Performed By: #### 2 045277, 2523641, 2335339, 62235534, 4556256 ####[facility] [address] [place] [address] Protein [Mass/Vol] 7.2 g/dL Normal 6.0-7.8 [facility] Comment on above: Performed By: #### 2 579551, 6766507, 8091978, 35477817, 9324703 ####[facility] [address] [place] [address] Sodium [Moles/Vol] 139 mmol/L Normal 135-145 [facility] Comment on above: Performed By: #### 2 946459, 9207550, 9156075, 23124936, 0709985 ####[facility] [address] [place] [address] Urea nitrogen [Mass/Vol] 15 mg/dL Normal 5-21 [facility] Comment on above: Performed By: #### 2 734198, 4559107, 5863115, 78797421, 2172641 ####[facility] [address] [place] [address] Urea nitrogen/Creatinine [Mass ratio] 17 No Units Normal 10-20 [facility] Comment on above: Performed By: #### 2 417609, 7820872, 4275970, 99384256, 1507632 ####[facility] [address] [place] [address] CRPon 02-01-2023 CRP [Mass/Vol] 0.7 mg/dL Normal <=1.9 [facility] Comment on above: Performed By: #### 2 311828, 4021656, 3645406, 45248373, 7833503 ####[facility] [address] [place] [address] Consent for Treatmenton Consent for Treatment [id number]#1.00CD:127 Normal [facility] HEMATOLOGYOrdered By: SYSTEM SYSTEM on 02-01-2023 Basophils/100 WBC (Bld) 2.7 % High 0.0 - 2.0 % [facility]eAuto[facility] Basophils/Leukocyte s Auto (Bld) [Pure # fraction] 0.2 E9/L Normal 0.0 - 0.2 E9/L [facility] Eosinophils/100 WBC (Bld) 8.5 % High 0.0 - 8.0 % [facility] Eosinophils/Leukocy karina Auto (Bld) [Pure # fraction] 0.7 E9/L High 0.0 - 0.5 E9/L [facility] Lymphocytes/100 WBC (Bld) 34.8 % Normal 14.0 - 50.0 % [facility]eAuto[facility] Lymphocytes/Leukocy karina Auto (Bld) [Pure # fraction] 2.8 E9/L Normal 1.0 - 4.0 E9/L [facility] Monocytes/100 WBC (Bld) 9.4 % Normal 4.0 - 14.0 % [facility]eAuto[facility] Monocytes/Leukocyte s Auto (Bld) [Pure # fraction] 0.8 E9/L Normal 0.2 - 1.0 E9/L [facility] Neutrophils/100 WBC (Bld) 44.6 % Normal 36.0 - 75.0 % [facility]Auto[facility] Neutrophils/Leukocy karina Auto (Bld) [Pure # fraction] 3.5 E9/L Normal 2.0 - 7.5 E9/L [facility] HEMATOLOGYOrdered By: Katerin Velazquez on 02-01-2023 Erythrocyte distribution width (RBC) [Ratio] 13.6 % Normal 10.9 - 14.2 % [facility] Hematocrit (Bld) [Volume fraction] 39.5 % Normal 34.0 - 46.0 % [facility] Hemoglobin (Bld) [Mass/Vol] 13.3 g/dL Normal 12.0 - 16.0 gm/dL [facility] MCH (RBC) [Entitic mass] 29.1 pg Normal 27.0 - 34.0 pg [facility] MCHC (RBC) [Mass/Vol] 33.7 g/dL Normal 31.4 - 36.0 gm/dL [facility] MCV (RBC) [Entitic vol] 86.4 fL Normal 80.0 - 100.0 fL [facility] Platelet mean volume (Bld) [Entitic vol] 8.9 fL Normal 6.4 - 10.8 fL [facility] Platelets (Bld) [#/Vol] 274.0 E9/L Normal 150.0 - 500.0 E9/L [facility]eAuto[facility] RBC (Bld) [#/Vol] 4.6 E12/L Normal 4.3 - 5.9 E12/L [facility] HemeAutoSS WBC corrected for nucl RBC Auto (Bld) [#/Vol] 8.0 E9/L Normal 4.0 - 11.0 E9/L [facility] eGFRon 02-01-2023 GFR/1.73 sq M.predicted among non-blacks MDRD (S/P/Bld) [Vol rate/Area] 80 mL/min/1.73 m2 Normal >=59 [facility] Comment on above: Order Comment: Order added by Discern Expert. Result Comment: Rooter Operator gail kidney disease could be indicated at eGFR's of less than 60 mL/min/1.73m2. Kidney failure is indicated at less than 15 mL/min/1.73m2. Performed By: #### 2 833830, 3745840, 9793216, 47253716, 1206766 ####[facility] [address] [place] [address] XR Abdomen 1 Viewon 01-07-20 23 XR Abdomen 1 View Exam Date/Time: 01/05/2023 13:54 EDT Reason for Exam: K56.3;Abdominal pain Report IMPRESSION: NONSPECIFIC GAS PATTERN OF BOWEL. PROBABLE FOREIGN BODIES IN THE RIGHT PROXIMAL COLON. 4 MM RENAL CALCULUS IN THE LOWER POLE OF THE RIGHT KIDNEY. CLINICAL HISTORY: Abdominal pain, K56.3 abnormal colonoscopy history of Crohn's disease COMPARISON: CT abdomen pelvis on 12/06/2022. FINDINGS: AP supine abdomen using 2 images shows several scattered surgical clips in the right middle abdomen. There are 3 ring calcifications in the proximal right colon, measuring up to 2.3 cm in diameter. There is about 4 mm calcific density in the lower pole of the right kidney. Both lung bases are unremarkable. Ordering Provider: Ignacia KHAN FINAL REPORT Dictated: 01/06/2023 2:12 pm Nikolas Villavicencio M.D. Signed (Electronic Signature): 01/06/2023 2:12 pm Signed by: Nikolas Villavicencio M.D. Transcribed by: DEBBIE Technologist: LEWIS Technical Comments Radiation Dose: Kar in mGy = na DAP = na Normal [facility] Consent for Treatmenton 12-24 Consent for Treatment [id number]#1.00CD:127 Normal [facility] Outside Colonoscopyon 2022 Outside Colonoscopy [id number]#2.00CD:127 Normal [facility] CT Abdomen/Pelvis w/contrast (enterography)on 12-09-2022 CT Abdomen/Pelvis w/contrast (enterography) Exam Date/Time: 12/06/2022 16:33 EDT Reason for Exam: K50.00;Abdominal pain Report IMPRESSION: NO SIGNS OF ACTIVE BOWEL INFLAMMATION DATE:12/06/2022 3:41 PM EXAMINATION: CT Abdomen/Pelvis w/contrast (enterography) CLINICAL HISTORY: Diffuse abdominal pain Abdominal pain, K50.00 COMPARISON: None available. TECHNIQUE: Contiguous axial CT sections of the abdomen and pelvis. 100 cc of IV contrast administered.. All CT scans at this facility use dose modulation, iterative reconstruction, and/or weight based dosing when appropriate to reduce radiation dose to as low as reasonably achievable. FINDINGS: Liver: Negative Gallbladder:No signs of acute gallbladder disease. Spleen:Negative Pancreas:Negative Kidneys/adrenal: 5 mm stone lower pole right kidney. 2 mm stone lower pole left kidney. Mild fullness of the right renal pelvis/pelviectasi s with tapering at the UP junction. Bowel:Mild normal luminal distention of the bowel of oral contrast. There is no abnormal bowel wall thickening. No bowel obstruction. No signs of sinus tract or fistula. No jeramie intestinal fluid collection or mass. No signs of active inflammatory disease. 3 rounded contiguous opaque/calcific densities with central lucency measuring 1.8 cm each in the region of the cecum.. No obstruction, diverticulitis, or colitis. Appendix:There is no CT evidence for appendicitis. Nodes:No retroperitoneal, mesenteric or pelvic lymphadenopathy. Aorta:Negative. No aneurysm Peritoneum:There is no free fluid or free air. The abdominal wall is intact. Report Pelvis:Status post hysterectomy. No abnormal soft tissue mass or fluid collection. Bones:No aggressive skeletal lesions. Lung bases:No significant basilar changes. Ordering Provider: Ignacia KHAN FINAL REPORT Dictated: 12/09/2022 1:38 pm Herber Davis MD Signed (Electronic Signature): 12/09/2022 1:38 pm Signed by: Herber Davis MD Transcribed by: DEBBIE Technologist: SANDI Technical Comments GFR (mL/min/1/73m2) na Contrast: Isovue 300 Contrast amount in ml's: 100 Rectal Contrast Given? No Oral contrast amount in ml's: 1450 Normal [facility] Consent for Treatmenton 11-24 Consent for Treatment [id number]#1.00CD:127 Normal [facility] Gastroenterology Office/Clin ic Noteon 11-29-2022 Gastroenterology Office/Clinic Note Chief Complaint ref by Marija- abdominal pain and crohn's disease HPI Staff This is a 47 year old female who presents today for a referral by Marija for complaints of abdominal pain and hx of crohn's disease. last colon 11/2020 History of Present Illness Stacey Sahu is a 47-year-old white female who was referred to me for abdominal pain and history of Crohn's disease. She was diagnosed with Crohn's disease 21 years ago during a partial small bowel obstruction surgery. She was placed on prednisone at that time. She has not received any treatment for the last 21 years. She has had 2 flare-ups with abdominal pain and diarrhea in the past 2 years that required prednisone treatment for 1 week. She has a normal bowel movement every morning. She denies any diarrhea at this time. She experiences sporadic lower abdominal cramping. She denies any recent blood testing. She denies a history of anemia or cancer. She denies any family history of Crohn's disease. She had a recent CT scan of her abdomen done. Review of Systems PHQ Score Initial Depression Screen Score: 0 Constitutional: No fever, no chills, no sweats, no weakness Skin: No Jaundice, no rash, no lesions, no petechiae ENMT: no ear pain, no sore throat, no congestion, no hoarseness Respiratory: no shortness of breath, no cough, no orthopnea, no wheezing Cardiovascular: no chest pain, no palpitations, no edema Gastrointestinal: no nausea, no vomiting, no diarrhea, no constipation, no GI bleeding, no dysphagia, no heartburn. Positive abdominal pain. Genitourinary: No dysuria, no hematuria, no discharge, no pain Musculoskeletal: no back pain, no trauma Neurologic: no numbness, no sleeping problems Additional ROS info: Except as noted in the above Review of Systems and in the History of Present Illness all other systems have been reviewed and are negative or noncontributory. Physical Exam Vitals & Measurements HR: 80(Peripheral) RR: 16 BP: 152/106 HT: 61 in HT: 155 cm WT: 88.2 kg WT: 194.04 lb BMI: 36.71 Constitutional: Appearance: well developed Skin: Inspection: no rashes, ulcers, icterus, or telangiectasias. Eyes: Conjunctivae/lids: normal conjunctivae and lids. ENMT: Hearing: within normal limits. Lips/Teeth/Gums: normal oral mucosa Neck: Neck: normal motion, central trachea Respiratory: Percussion: thorax normoresonant. Auscultation: normal breath sounds; no rubs, wheezes, rale or rhonchi. Cardiovascular: Auscultation: normal rhythm, S1 and S2; no rubs, murmurs or gallop. Peripheral: no edema Gastrointestinal/A bdomen: Abdomen: normal consistency and bowel sounds; no tenderness or masses. Liver/Spleen: normal size and consistency, not palpable. Rectal: deferred Musculoskeletal: Gait/station: normal gait Assessment/Plan 1. Crohn's disease, small intestine (K50.00: Crohn's disease of small intestine without complications) The patient has a history of small intestinal Crohn's disease diagnosed during partial small bowel obstruction surgery which she had 21 years ago. During the surgery they diagnosed her with Crohn's disease. Since then, she had multiple flare-ups with an average of 1 to 2 per year requiring prednisone treatment, but she is currently on no treatment for Crohn's disease and never received any prior treatment for Crohn's disease except for sporadic prednisone tapering doses. At this point, I will repeat her colonoscopy to re-establish the diagnosis and restage it. We will also proceed with a CT enterography to assess for small intestinal Crohn's disease. We will check her fecal calprotectin and CRP and we will plan on treatment if findings are consistent with Crohn's disease. 2. Abdominal pain (R10.9: Unspecified abdominal pain) She describes sporadic lower crampy abdominal pain. We will proceed with CT enterography and colonoscopy to assess for Crohn's disease. 3. Chronic GERD (K21.9: Gastro-esophageal reflux disease without esophagitis) This is fairly controlled with symptomatic treatment. She is on omeprazole as needed. She was advised to avoid NSAIDs and to continue with omeprazole. ATTESTATION: Documentation services were performed after patient or guardian consented to allow Olga Holt to record this visit. DELVIN field property loss specialist and provider reviewed before signing. DELVIN: Jesse Bray Follow-up No qualifying data available Problem List/Past Medical History Ongoing Bipolar depression Chronic GERD Crohn's disease, small intestine Flank pain Gross hematuria Hyperlipidemia Kidney stones Nocturia PAH (pulmonary artery hypertension) Historical anxiety disorder crohn's disease depression hypercholesterolem ia nephrolithiasis Procedure/Surgical History Hysterectomy, laparoscopy, partial colectomy, Tonsillectomy, tubal ligation. Medications Aleve, Oral, q12hr Prilosec, Oral, Daily Allergies H/O: penicillin allergy Social History Alcohol - Denies Alcohol Use, 12/23/2010 Substance Abuse - Demetri (more content not included)... [facility] Comment on above: Result Comment: Elec tronically Signed By: Jesse Bray\.br\Date and Time Signed: 11/24/22 16:24 EDT\.br\Electronically Co-Signed By: Ignacia KHAN MD\.br\Date and Time Co-Signed: 11/29/22 21:07 EDT Consent for Procedure/Surger yon 11-28-2022 Consent for Procedure/Surgery [id number]#1.00CD:127 [facility] Pre-Certification Formon Pre-Certification Form [id number]#1.00CD:127 [facility] Ambulatory Visit Summaryon 0 11-24-2022 Ambulatory Visit Summary STACEY SAHU :1975 Visit Date:11/24/2022 Ambulatory Visit Instructions Your Diagnosis Crohn's disease, small intestine Abdominal pain Chronic GERD Your Care Team Attending Physician - Ignacia KHAN MD Primary Care Physician - [place] BAH, ESSIE Dolan Referring Physician - SHAIKH WHITE This Is Your Medications List Contact prescribing physician if questions or concerns naproxen (Aleve) omeprazole (Prilosec) Procedures Performed Hysterectomy, laparoscopy, partial colectomy, Tonsillectomy, tubal ligation. Discharge Vitals Heart Rate (Peripheral) 80 Respiratory Rate 16 Blood Pressure 152/106 Height 61 in Height 155 cm Weight 194.04 lb Weight 88.2 kg BMI 36.71 What to do next Scheduled Follow-Up Appointments Monday 2:30 PM EST With: JOSE FELIX, Jose Palafox Where: [facility] Jatinder Invalid Interpretation Code Abdominal pain, Print Label By Order Location\.br\ CBC w/ Auto Diff, Blood, Routine collect, 11/24/22, Order for future visit, Lab Collect, Crohn's disease, small intestine [facility] 36on 11-23-2022 36 Please let her know her ECHO was normal. I updated my note with clearance for her upcoming surgery. Please send to surgeons office. She should follow-up with an attending in 3 months or sooner if needed. Thanks [facility] Telephoneon 11-23-2022 Telephone [phone] Barron Sahura Gonzalez 1975 F Date Provider Department [facility] Family History Problem Relation Age of Onset Coronary artery disease Father Family Status - Relation Status Age at Father [facility] ECHOCARDIO M/2D COMPLETEon 0 11-22-2022 ECHOCARDIO M/2D COMPLETE Patient: STACEY SAHU. Exam Date: 11/22/2022 : 1975 Gender:F Ordering : CAN VALERA CNP Admission #: [id number] Family : Order #: [id number] CLICK HERE TO VIEW EXAM ECHOCARDIOGRAM REPORT PROCEDURE: CARDIO PULMONARY ECHOCARDIO M/2D COMP INDICATIONS: Palpitation, Pulmonary hypertension COMPARISON: None. DESCRIPTION: COMPLETE ECHOCARDIOGRAM Real-time transthoracic echocardiography with 2D, M-mode, spectral and color flow Doppler performed. QUALITY: Technical quality was good. LEFT VENTRICLE: Normal chamber size. Borderline left ventricular hypertrophy. Global left ventricular systolic function is normal. LV EF: Calculated left ventricular ejection fraction is 55% DIASTOLIC: Normal diastolic function. ATRIAL SEPTUM: LEFT ATRIUM: Normal chamber size. RIGHT ATRIUM: Normal chamber size. RIGHT VENTRICLE: Normal chamber size. Normal right ventricular systolic function. TRICUSPID VALVE: Normal mobility and thickness. No stenosis with trivial regurgitation. No evidence of pulmonary hypertension. RVSP 31 mmHg MITRAL VALVE: Normal mobility and thickness. No evidence of mitral valve stenosis. There is no mitral annular calcification. Trivial mitral regurgitation. AORTIC VALVE: Normal trileaflet appearance. No visible sclerosis. Normal leaflet mobility. No evidence of aortic valve stenosis. No aortic regurgitation. AORTIC ROOT: Normal diameter and appearance. PULMONIC VALVE: Normal thickness and mobility. No stenosis. Mild regurgitation. PERICARDIUM: No evidence of pericardial effusion. IVC: Collapses with inspirations. Normal size. PLEURA: CONCLUSION: 1. Normal ventricular systolic function. LVEF is 65%. 2. Normal diastolic function. 3. No significant valvular dysfunction. 4. Normal right-sided pressures. Adult Echocardiography Procedure Report Left Ventricle Left Atrium LA Volume Index (2D A2C): 38.76 ml, 38.76 ml Mitral Valve Right Ventricle Aorta Aortic Valve AoV Area (Peak Luis): 1.91 cm2, 1.91 cm2 AoV Area (VTI): 1.96 cm2, 1.85 cm2 Tricuspid Valve Pulmonic Valve Peak Velocity: 0.93 m/s, 1.05 m/s, 1.09 m/s Peak Gradient: 4.21 mm[Hg] Right Atrium Dictated by: Milo Moran M.D. on 11/22/2022 at 17:42 Approved by: Milo Moran M.D. on 11/22/2022 at 17:44 Normal [facility] Ambulatory Visit Summaryon 0 11-08-2022 Ambulatory Visit Summary STACEY SAHU :1975 Visit Date:11/08/2022 Ambulatory Visit Instructions Your Diagnosis Gross hematuria Kidney stones Nocturia Tests Performed Urnls Dip Stick Auto w/o Microscopy POC 68149 XR Abdomen 1 View -- Results Pending -- Please visit your patient portal for your results or contact your primary care physician. Your Care Team Attending Physician - LESLIE JUNG PA-C Primary Care Physician - ESSIE RYAN CNP This Is Your Medications List Contact prescribing physician if questions or concerns naproxen (Aleve) omeprazole (Prilosec) Procedures Performed Hysterectomy, laparoscopy, partial colectomy, Tonsillectomy, tubal ligation. Discharge Vitals Heart Rate (Peripheral) 97 Blood Pressure 137/81 Height 155 cm Height 61 in Weight 90 kg Weight 198 lb BMI 37.46 What to do next Scheduled Follow-Up Appointments 2022 1:30 PM EDT With: Ignacia KHAN MD Where: [facility] Normal [address] [place] [address]- \.br\ You Need to Schedule the Following Appointments\.br\ Follow Up with LESLIE JUNG PA-C, URL When: In 6 months 05/11/2023 EST\.br\ Comments:\.br\ KUB\.br\ Where:\.br\ [address]br\ [place] [address]\.br\ [phone]\.br\ Medications\.br\ What How Much When Instructions\.br\ Unchanged naproxen (Aleve) Every 12 hours Contact prescribing physician if questions or concerns \.br\ Unchanged omeprazole (Prilosec) Every day Contact prescribing physician if questions or concerns \.br\ Test Results\.br\ Urnls Dip Stick Auto w/o Microscopy POC 91602 (11/08/2022)\.br\ Bilirubin Urine Dipstick - Negative\.br\ Blood Urine Dipstick - 3+ Large\.br\ Glucose Urine Dipstick - Negative\.br\ Ketones Urine Dipstick - Negative\.br\ Leukocytes Urine Dipstick - Negative\.br\ Nitrite Urine Dipstick - Negative\.br\ Protein Urine Dipstick - Negative\.br\ Specific [place] Urine Dipstick - 1.020\.br\ Urine Appearance Urine Dipstick - Clear\.br\ Urine Color Urine Dipstick - Yellow\.br\ Urobilinogen Urine Dipstick - Normal 0.2-1 EU/dl\.br\ pH Urine Dipstick - 6\.br\ Allergies\.br\ H/O: penicillin allergy\.br\ Problems\.br\ Ongoing - Any problem that you are currently receiving treatment for.\.br\ Bipolar depression\.br\ Chronic GERD\.br\ Flank pain\.br\ Gross hematuria\.br\ Hyperlipidemia\.br\ Kidney stones\.br\ Nocturia\.br\ PAH (pulmonary artery hypertension)\.br\ Historical - Any problem that you are no longer receiving treatment for.\.br\ anxiety disorder\.br\ crohn's disease\.br\ depression\.br\ hypercholesterolemi a\.br\ nephrolithiasis\.br \ Education Materials\.br\ Hematuria, Adult\.br\ \.br\ Hematuria is blood in the urine. Blood may be visible in the urine, or it may be identified with a test. This condition can be caused by infections of the bladder, urethra, kidney, or prostate. Other possible causes include:\.br\ ? \.br\ Kidney stones.\.br\ ? \.br\ Cancer of the urinary tract.\.br\ ? \.br\ Too much calcium in the urine.\.br\ ? \.br\ Conditions that are passed from parent to child (inherited conditions).\.br\ ? \.br\ Exercise that requires a lot of energy.\.br\ Infections can usually be treated with medicine, and a kidney stone usually will pass through your urine. If neither of these is the cause of your hematuria, more tests may be needed to identify the cause of your symptoms.\.br\ It is very important to tell your health care provider about any blood in your urine, even if it is painless or the blood stops without treatment. Blood in the urine, when it happens and then stops and then happens again, can be a symptom of a very serious condition, including cancer. There is no pain in the initial stages of many urinary cancers.\.br\ Follow these instructions at home:\.br\ Medicines\.br\ ? \.br\ Take cjrm-sck-eanjyzd and prescription medicines only as told by your health care provider.\.br\ ? \.br\ If you were prescribed an antibiotic medicine, take it as told by your health care provider. Do not stop taking the antibiotic even if you start to feel better.\.br\ Eating and drinking\.br\ ? \.br\ Drink enough fluid to keep your urine pale yellow. It is recommended that you drink 3?4 quarts (2.8?3.8 L) a day. If you have been diagnosed with an infection, drinking cranberry juice in addition to large amounts of water is recommended.\.br\ ? \.br\ Avoid caffeine, tea, and carbonated beverages. These tend to irritate the bladder.\.br\ ? \.br\ Avoid alcohol because it may irritate the prostate (in males).\.br\ General instructions\.br\ ? \.br\ If you have been diagnosed with a kidney stone, follow your health care provider's instructions about straining your urine to catch the stone.\.br\ ? \.br\ Empty your bladder often. Avoid holding urine for long periods of time.\.br\ ? \.br\ If you are female:\.br\ ? \.br\ After a bowel movement, wipe from front to back and use each piece of toilet paper only once.\.br\ ? \.br\ Empty your bladder before and after sex.\.br\ ? \.br\ Pay attention to any changes in your symptoms. Tell your health care provider about any changes or any new symptoms.\.br\ ? \.br\ It is up to you to get the results of any tests. Ask your health care provider, or the department that is doing the test, when your results will be ready.\.br\ ? \.br\ Keep all follow-up visits. This is important.\.br\ Contact a health care provider if:\.br\ ? \.br\ You develop back pain.\.br\ ? \.br\ You have a fever or chills.\.br\ ? \.br\ You have nausea or vomiting.\.br\ ? \.br\ Your symptoms do not improve after 3 days.\.br\ ? \.br\ Your symptoms get worse.\.br\ Get help right away if:\.br\ ? \.br\ You develop severe vomiting and are unable to take medicine without vomiting.\.br\ ? \.br\ You develop severe pain in your back or abdomen even though you are taking medicine.\.br\ ? \.br\ You pass a large amount of blood in your urine.\.br\ ? \.br\ You pass blood clots in your urine.\.br\ ? \.br\ You feel very weak or like you might faint.\.br\ ? \.br\ You faint.\.br\ Summary\.br\ ? \.br\ Hematuria is blood in the urine. It has many possible causes.\.br\ ? \.br\ It is very important that you tell your health care provider about any blood in your urine, even if it is painless or the blood stops without treatment.\.br\ ? \.br\ Take kcvc-gfj-zaeybqx and prescription medicines only as told by your health care provider.\.br\ ? \.br\ Drink enough fluid to keep your urine pale yellow.\.br\ This information is not intended to replace advice given to you by your health care provider. Make sure you discuss any questions you have with your health care provider.\.br\ Document Revised: 02/10/2021 Document Reviewed: 02/10/2021 [employer] Patient Education ? 2022 [email or web address].\.br\ \.br\ [facility] Office Visiton 11-08-2022 Follow-up visit [id number] Stacey Sahu 1975 F Date Provider Department Center 11/08/2022 CAN [facility] Family History Problem Relation Age of Onset Coronary artery disease Father Family Status - Relation Status Age at Father Level of Service:[address] [place] OFFICE/OUTPATIENT NEW MODERATE MDM 45-59 MINUTES Reason for Visit and Comments: Re-establish care [Other] Pulmonary Hypertension [818] Normal [facility] Patient Educationon 11-09-19 23 Patient Education Urology Hematuria, Adult Hematuria is blood in the urine. Blood may be visible in the urine, or it may be identified with a test. This condition can be caused by infections of the bladder, urethra, kidney, or prostate. Other possible causes include: ? Kidney stones. ? Cancer of the urinary tract. ? Too much calcium in the urine. ? Conditions that are passed from parent to child (inherited conditions). ? Exercise that requires a lot of energy. Infections can usually be treated with medicine, and a kidney stone usually will pass through your urine. If neither of these is the cause of your hematuria, more tests may be needed to identify the cause of your symptoms. It is very important to tell your health care provider about any blood in your urine, even if it is painless or the blood stops without treatment. Blood in the urine, when it happens and then stops and then happens again, can be a symptom of a very serious condition, including cancer. There is no pain in the initial stages of many urinary cancers. Follow these instructions at home: Medicines ? Take mypg-xod-ywiishy and prescription medicines only as told by your health care provider. ? If you were prescribed an antibiotic medicine, take it as told by your health care provider. Do not stop taking the antibiotic even if you start to feel better. Eating and drinking ? Drink enough fluid to keep your urine pale yellow. It is recommended that you drink 3?4 quarts (2.8?3.8 L) a day. If you have been diagnosed with an infection, drinking cranberry juice in addition to large amounts of water is recommended. ? Avoid caffeine, tea, and carbonated beverages. These tend to irritate the bladder. ? Avoid alcohol because it may irritate the prostate (in males). General instructions ? If you have been diagnosed with a kidney stone, follow your health care provider's instructions about straining your urine to catch the stone. ? Empty your bladder often. Avoid holding urine for long periods of time. ? If you are female: ? After a bowel movement, wipe from front to back and use each piece of toilet paper only once. ? Empty your bladder before and after sex. ? Pay attention to any changes in your symptoms. Tell your health care provider about any changes or any new symptoms. ? It is up to you to get the results of any tests. Ask your health care provider, or the department that is doing the test, when your results will be ready. ? Keep all follow-up visits. This is important. Contact a health care provider if: ? You develop back pain. ? You have a fever or chills. ? You have nausea or vomiting. ? Your symptoms do not improve after 3 days. ? Your symptoms get worse. Get help right away if: ? You develop severe vomiting and are unable to take medicine without vomiting. ? You develop severe pain in your back or abdomen even though you are taking medicine. ? You pass a large amount of blood in your urine. ? You pass blood clots in your urine. ? You feel very weak or like you might faint. ? You faint. Summary ? Hematuria is blood in the urine. It has many possible causes. ? It is very important that you tell your health care provider about any blood in your urine, even if it is painless or the blood stops without treatment. ? Take jjaq-knl-potebgf and prescription medicines only as told by your health care provider. ? Drink enough fluid to keep your urine pale yellow. This information is not intended to replace advice given to you by your health care provider. Make sure you discuss any questions you have with your health care provider. Document Revised: 02/10/2021 Document Reviewed: 02/10/2021 [employer]el Patient Education ? 2022 [email or web address]. [employer] [facility] Urology Office/Clinic Noteon 11-08-2022 Urology Office/Clinic Note Chief Complaint 6 month sw/KUB HPI Staff 6 month f/u with KUB. Previous dx include gross hematuria, kidney stones and hydronephrosis of the right kidney. KUB done 10/26/2022 was negative. Gross hematuria for a couple of months negative Cysto and CT. Nocturia 2x. Pt reeder snot have any real urinary complaints. History of Present Illness staff HPI reviewed and agree. Review of Systems PHQ Score Initial Depression Screen Score: 0 no fever, chills, malaise, myalgia. no rash/lesions. no chest pain, palpitations, or SOB. no abdominal pain, nausea, vomiting. no unilateral calf swelling, redness, pain Physical Exam Vitals & Measurements HR: 97(Peripheral) BP: 137/81 HT: 61 in HT: 155 cm WT: 90 kg WT: 198 lb BMI: 37.46 General: nontoxic, NAD Mouth: moist mucosa Lungs: normal respiratory effort Cardio: regular rate, good distal perfusion Abdomen: nondistended, no suprapubic distention or tenderness, no CVA tenderness Neurologic: Grossly normal Skin: No rashes or suspicious lesions Assessment/Plan 1. Gross hematuria (R31.0: Gross hematuria) Patient has Large blood on UA today. She sometimes sees blood on and off - this is chronic. Cystoscopy done 03/08/2022 was negative. CTU 03/2022 neg. 2. Kidney stones (N20.0: Calculus of kidney) CT scan done 04/22/22 shows 6 mm right kidney stone, and 3 mm left kidney stone. Stones in the Cecum (pt has hx colectomy due to Chron's) KUB done 10/26/2022 does not show kidney stones. has had no stone passage or pain or issues since last visit. 3. Nocturia (R35.1: Nocturia) 2x pt states that this is not bothersome to her. falls right back asleep. denies significant bladder irritants before bed. pt admits she only voids 2-3x during the day. Discussed with pt doing timed voids every 3 hours while awake regardless of the urge. Educated pt that this will help with general bladder health and may help reduce her nocturia. Renal scan shows function on left 51% , right side 49%. Follow-up With When Contact Information LESLIE JUNG PA-C, URL In 6 months 05/11/2023 EST [address] [facility] [address] [phone] Additional Instructions: KUB Patient Education Hematuria, Adult IMoni personally scribed for Leslie Jung PA-C on 11/08/2022 13:25:55. . Documentation recorded by the henri Gonzáles accurately reflects the services(s) I performed and decisions made by me. Authenticated by Leslie Jung PA-C on 11/08/2022 13:38:03. Problem List/Past Medical History Ongoing Bipolar depression Chronic GERD Flank pain Gross hematuria Hyperlipidemia Kidney stones Nocturia PAH (pulmonary artery hypertension) Historical anxiety disorder crohn's disease depression hypercholesterolem ia nephrolithiasis Procedure/Surgical History Hysterectomy, laparoscopy, partial colectomy, Tonsillectomy, tubal ligation. Medications Aleve, Oral, q12hr Prilosec, Oral, Daily Allergies H/O: penicillin allergy Social History Alcohol - Denies Alcohol Use, 12/23/2010 Substance Abuse - Denies Substance Abuse, 12/23/2010 Tobacco Past, 12/23/2010 Family History Breast cancer: Mother. Coronary artery disease: Father. Diabetes mellitus type 2: Father. Hypertension: Father. Osteoporosis: Mother. Immunizations Vaccine Date Status influenza, whole 05/03/2012 Recorded Lab Results Ambulatory Point of Care Results Bilirubin Urine Dipstick: Negative (11/08/22 13:00:00) Blood Urine Dipstick: 3+ Large (11/08/22 13:00:00) Glucose Urine Dipstick: Negative (11/08/22 13:00:00) Ketones Urine Dipstick: Negative (11/08/22 13:00:00) Leukocytes Urine Dipstick: Negative (11/08/22 13:00:00) Nitrite Urine Dipstick: Negative (11/08/22 13:00:00) Protein Urine Dipstick: Negative (11/08/22 13:00:00) Specific [place] Urine Dipstick: 1.020 (11/08/22 13:00:00) Urine Appearance Urine Dipstick: Clear (11/08/22 13:00:00) Urine Color Urine Dipstick: Yellow (11/08/22 13:00:00) Urobilinogen Urine Dipstick: Normal 0.2-1 EU/dl (11/08/22 13:00:00) pH Urine Dipstick: 6 (11/08/22 13:00:00) Diagnostic Results Tests Reviewed: Reviewed UA, KUB [facility] Comment on above: Result Comment: Elec tronically Signed By: LESLIE JUNG PA-C\.br\Date and Time Signed: 11/08/22 13:46 EDT\.br\Electronically Co-Signed By: Moni Gonzáles MA\.br\Date and Time Co-Signed: 11/08/22 13:26 EDT RAD - MISCon 10-28-2022 RAD - MISC [id number]#[id number]:127 [facility] US THYROID FN ASP BXon 10-28 US THYROID FN ASP BX Begin Addendum #1 COLLECTED DATE/TIME: 10/18/2022 13:19 EDT Final Diagnosis Report for [facility] [place] (A/B) SOFT TISSUE MASS CEPHALAD TO THYROID; FINE NEEDLE ASPIRATION: -ATYPIA OF UNDETERMINED SIGNIFICANCE. -CYST CONTENT. NOTE: Sparsely cellular aspirate compromised of follicular cells with architectural atypia. Molecular testing or a repeat aspirate may be helpful if clinically indicated. The final diagnosis is based on a microscopic exam of physician representative sections. 10/25/[address] Caceres. 10/26/2022 verified with Shannan that report was present in office (BM). Original Report EXAMINATION: US THYROID FN ASP BX HISTORY: Mass of thyroid gland ; mass superior to the isthmus COMPARISON: Ultrasound thyroid 09/06/2022, CT neck 10/04/2022 TECHNIQUE: After obtaining informed consent, ultrasound-guided fine needle aspiration was performed in the usual sterile manner. FINDINGS: IMAGING: Ultrasound. BIOPSY NEEDLE: 25-gauge; 3 separate passes LOCATION: Cephalad to isthmus. SPECIMEN TYPE: Cellular tissue. LOCAL ANESTHETIC: Buffered Xylocaine. COMPLICATIONS: None. LABORATORY: Prepared slide smears and washings for cell block evaluation. OTHER: Negative. PATHOLOGY: Pending. An addendum will be added when results are available. IMPRESSION: 1. Uneventful ultrasound guided fine needle aspiration (FNA). 2. Pathology results are pending. Normal [facility] XR KUB 1 VIEWon 10-27-2022 XR KUB 1 VIEW EXAMINATION: XR KUB 1 VIEW HISTORY: Kidney stone COMPARISON: 03/22/2022 FINDINGS: KIDNEY/URETER - RIGHT: No visible renal or ureteral calcifications. KIDNEY/URETER - LEFT: No visible renal or ureteral calcifications. PELVIS: No visible ureteral calcifications. Any visible calcifications favor phleboliths. BOWEL: No abnormal dilation or deviation. BONES: No acute abnormality. OTHER: 3 round radiopaque foreign bodies in the right lower quadrant, slightly changed in position. Moderate stool in the cecum IMPRESSION: No new urinary tract calculi identified Electronically authenticated by: PAULETTE GALVAN Date: 2022-10-27 07:19 Normal [facility] Provider Letteron 10-06-2022 Provider Letter October 06, 2022 STACEY [address]HU [address] [place] [address] STACEY SAHU 1975 Dear Stacey , We have been trying to reach you with no success. You have an appointment with Dr. Jose Garcia on 10/24/2022 which will need to be rescheduled since he will be out of the office that day. Please contact the office at the number listed below to get this appointment rescheduled at your earliest convenience. Thank you for your prompt attention to this matter. Sincerely, [facility] [address], [place] [address] Normal [facility] CT NECK ST W CONon [address] W CON EXAMINATION: CT NECK ST W CON HISTORY: Mass of neck COMPARISON: Ultrasound thyroid 09/06/2022 TECHNIQUE: Axial, Coronal, and Sagittal CT images created with IV contrast. Dose reduction techniques were achieved by using automated exposure control and/or adjustment of mA and/or kV according to patient size and/or use of iterative reconstruction technique. FINDINGS: NASOPHARYNX: No asymmetry of the fossae of Rosenmuller and torus tubarius. ORAL CAVITY: No visible mass. OROPHARYNX: No asymmetry of the facial and lingual tonsils. HYPOPHARYNX: No mass or other visible lesion. LARYNX: No mass or asymmetry of the vocal cords. SINUSES: No significant fluid or mucosal thickening. NECK GLADS: Slightly prominent thyroid gland without specific nodules. Soft tissue extending cephalad from isthmus 2.9 cm x 2.1 x 1.1 cm with identical appearance and enhancement to thyroid gland. LYMPH NODES: No pathological-appea ring or enlarged lymph nodes. VASCULATURE: No suspicious abnormality. BONES: No significant osseous lesions. OTHER: No additional imaging findings. IMPRESSION: 1. 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 2. Slightly heterogeneous appearance of thyroid gland; no suspicious nodules. Electronically authenticated by: PREET RODRIGEZ Date: 2022-10-05 08:22 Normal [facility] Physician Referralon 023 Physician Referral [id number]#[id number]:127 Normal [facility] CARDIAC DENZEL ADMITon 023 CK [Catalytic activity/Vol] 149 U/L Normal 26-192 [facility] Comment on above: Performed By: #### C MADM, LIPA, CMP ####[facility] [address] [place] [id number]. Nita Iverson CK.MB [Mass/Vol] 1.51 ng/mL Normal <=3.60 [facility] Comment on above: Performed By: #### C MADM, LIPA, CMP ####[facility] [address] [place] [id number]. Nita Iverson HSTROP 4.1 pg/mL Normal 4.0-51.3 [facility] Comment on above: Result Comment: CUT- OFF POINTS HAVE BEEN ESTABLISHED BASED ON THE FOURTH UNIVERSAL DEFINITIONS OF MYOCARDIAL INFARCTION. THE UPPER REFERENCE LIMIT (URL) OF TROPONIN, DEFINED THE 99TH PERCENTILE OF cTnI DISTRIBUTION IN A REFERENCE POPULATION, HAS BEEN CONFIRMED THE DECISION THRESHOLD FOR [place] DIAGNOSIS. Performed By: #### C MADM, LIPA, CMP ####[facility] [address] [place] [address]Dr. Nita Iverson ARIES 47 ng/mL Normal 9-82 [facility] Comment on above: Performed By: #### C JARETT LIPA, CMP ####[facility] [address] [place] [address]DrMaribel Iverson CBC AUTO DIFFon 09-21-2022 BASO # 0.1 103/ul Normal 0.0-0.1 [facility] Comment on above: Performed By: #### C BC #### [facility] [address] [address] [address] Nita Iverson Basophils/100 WBC (Bld) 0.8 % Normal 0.2-2.0 [facility] Comment on above: Performed By: #### C BC #### [facility] [address] [address] [address] Nita Iverson EO # 0.7 103/ul Normal 0.0-0.7 [facility] Comment on above: Performed By: #### C BC #### [facility] [address] [address] [address] Nita Iverson Eosinophils/100 WBC (Bld) 7.1 % Critically high 0.9-7.0 [facility] Comment on above: Performed By: #### C BC #### [facility] [address] [place] [address] Dr. Nita Iverson Erythrocyte distribution width (RBC) [Ratio] 12.3 % Normal 11.0-15.0 [facility] Comment on above: Performed By: #### C BC #### [facility] [address] [place] [address] Dr. Nita Iverson Hematocrit (Bld) [Volume fraction] 40.1 % Normal 36.0-48.0 [facility] Comment on above: Performed By: #### C BC #### [facility] [address] [place] [address] Dr. Nita Iverson Hemoglobin (Bld) [Mass/Vol] 13.6 g/dL Normal 12.0-16.0 [facility] Comment on above: Performed By: #### C BC #### [facility] [address] [place] [address] Dr. Nita Iverson IG # 0.02 10e3/ul Normal 0.00-0.03 [facility] Comment on above: Performed By: #### C BC #### [facility] [address] [place] [address] Dr. Nita Iverson IG % 0.2 % Normal 0.0-0.5 [facility] Comment on above: Performed By: #### C BC #### [facility] [address] [place] [address] Dr. Nita Iverson LYMPH # 3.0 103/ul Normal 1.2-3.8 [facility] Comment on above: Performed By: #### C BC #### [facility] [address] [place] [address] Dr. Nita Iverson Lymphocytes/100 WBC (Bld) 30.2 % Normal 20.5-60.0 [facility] Comment on above: Performed By: #### C BC #### [facility] [address] [place] [address] Dr. Nita Iverson MANUAL DIFF REQ NO Normal [facility] Comment on above: Performed By: #### C BC #### [facility] [address] [place] [address] Dr. Nita Iverson MCH (RBC) [Entitic mass] 30.0 pg Normal 26.7-34.0 [facility] Comment on above: Performed By: #### C BC #### [facility] [address] [place] [address] Dr. Nita Iverson MCHC (RBC) [Mass/Vol] 33.9 g/dL Normal 29.9-35.2 [facility] Comment on above: Performed By: #### C BC #### [facility] [address] [place] [address] Dr. Nita Iverson MCV (RBC) [Entitic vol] 88.3 fL Normal 81.0-99.0 [facility] Comment on above: Performed By: #### C BC #### [facility] [address] [place] [address] Dr. Nita Iverson MONO # 0.8 103/ul Normal 0.3-0.8 [facility] Comment on above: Performed By: #### C BC #### [facility] [address] [place] [address] Dr. Nita Iverson Monocytes/100 WBC (Bld) 7.8 % Normal 1.7-12.0 [facility] Comment on above: Performed By: #### C BC #### [facility] [address] [place] [address] Dr. Nita Iverson NEUT # 5.4 103/ul Normal 1.4-6.5 [facility] Comment on above: Performed By: #### C BC #### [facility] [address] [place] [address] Dr. Nita Iverson Neutrophils/100 WBC (Bld) 53.9 % Normal 43.0-75.0 [facility] Comment on above: Performed By: #### C BC #### [facility] [address] [place] [address] Dr. Ntia Iverson Platelet mean volume (Bld) [Entitic vol] 10.4 fL Normal 9.5-13.5 [facility] Comment on above: Performed By: #### C BC #### [facility] [address] [place], [place] [address] Dr. Nita Iverson PLT 270 103/ul Normal 150-450 [facility] Comment on above: Performed By: #### C BC #### [facility] [address] [place], [place] [address] Dr. Nita Iverson RBC 4.54 106/ul Normal 4.20-5.40 [facility] Comment on above: Performed By: #### C BC #### [facility] [address] [id number] [address] Nita Iverson WBC 10.0 103/ul Normal 4.0-11.0 [facility] Comment on above: Performed By: #### C BC #### [facility] [address] [place] [address] ABD/PELV W CONon 09-22-19 CT ABD/PELV W CON EXAMINATION: CT ABDOMEN AND PELVIS WITH IV CONTRAST CLINICAL HISTORY: Diffuse abdominal pain TECHNIQUE: CT of the abdomen and pelvis was performed using standard technique, scanning from just above the dome of the diaphragm to the symphysis pubis. All CT scans at this facility use dose modulation, iterative reconstruction, and/or weight based dosing when appropriate to reduce radiation dose to as low as reasonably achievable. Contrast: IV: 100 ml of Omnipaque 350 Oral contrast was administered. COMPARISON: None. RESULT: Liver: No mass. Biliary: No bile duct dilation. Gallbladder is unremarkable. Spleen: No mass. No splenomegaly. Pancreas: No mass or duct dilation. Adrenals: No mass. Kidneys: No mass. No hydronephrosis. Contrast within the collecting system due to timing. GI tract: Postoperative changes partial right hemicolectomy with anastomotic sutures in the right lower quadrant. Mild wall thickening, with metallic density within the ascending colon (series 8 image 22), with mild surrounding soft tissue stranding (series 6 image 77). Moderate colonic stool. Lymph nodes: No abdominal or pelvic lymphadenopathy. Mesentery/Peritone um: No ascites or mass. Retroperitoneum: No mass. Vasculature: The celiac axis and SMA are patent. The portal vein and branches, splenic vein, SMV, and hepatic veins are patent. No abdominal aortic aneurysm. Pelvis: No mass, ascites or fluid collection. Urinary bladder is filled with contrast. Bones/Soft Tissues: No significant finding. Lower thorax: Unremarkable. IMPRESSION: Postoperative changes right hemicolectomy. Mild wall thickening and surrounding soft tissue stranding involving the ascending colon, as described above. Given reported history of Crohn's, findings are concerning for acute Crohn's inflammation. Indeterminate multiple metallic densities within the ascending colon. Electronically authenticated by: MISTY SPEARS Date: 2022-09-21 21:41 Normal [facility] ER URINE PROFILEon 3 Bilirubin Ql (U) Negative Normal NEGATIVE [facility] Comment on above: Performed By: #### U MICRO, ERUR, PREGU ####[facility] [address] [place] [address]Dr. Nita Iverson Clarity (U) CLEAR Normal CLEAR [facility] Comment on above: Performed By: #### U MICRO, ERUR, PREGU ####[facility] [address] [place] [address]Dr. Nita Iverson Color (U) LT. YELLOW Normal YELLOW [facility] Comment on above: Performed By: #### U MICRO, ERUR, PREGU ####[facility] [address] [place] [address]Dr. Nita MARIEAHD A micrscopic examination will be performed if indicated. Normal [facility] Comment on above: Performed By: #### U MICRO, ERUR, PREGU ####[facility] [address] [place] [address]Dr. Nita Iverson Glucose Ql (U) Negative Normal NEGATIVE [facility] Comment on above: Performed By: #### U MICRO, ERUR, PREGU ####[facility] [address] [place] [address]Dr. Nita Iverson Hemoglobin Ql (U) LARGE Abnormal NEGATIVE [facility] Comment on above: Performed By: #### U MICRO, ERUR, PREGU ####[facility] [address] [place] [address]Dr. Nita Iverson Ketones Ql (U) Negative Normal NEGATIVE [facility] Comment on above: Performed By: #### U MICRO, ERUR, PREGU ####[facility] [address] [place] [address]Dr. Nita Iverson LEUKOCYTES Negative Normal NEGATIVE [facility] Comment on above: Performed By: #### U MICRO, ERUR, PREGU ####[facility] [address] [place] [address]Dr. Nita Iverson Nitrite Ql (U) Negative Normal NEGATIVE [facility] Comment on above: Performed By: #### U MICRO, ERUR, PREGU ####[facility] [address] [place] [address]Dr. Nita Iverson pH (U) 6.5 [pH] Normal 5-9 [facility] Comment on above: Performed By: #### U MICRO, ERUR, PREGU ####[facility] [address] [place], [place] [address]Dr. Nita Iverson SPEC GRAVITY 1.020 Normal 1.005-<=1.025 [facility] Comment on above: Performed By: #### U MICRO, ERUR, PREGU ####[facility] [address] [place] [address]Dr. Nita Iverson UA PROTEIN Negative Normal NEGATIVE/ TRACE [facility] Comment on above: Performed By: #### U MICRO, ERUR, PREGU ####[facility] [address] [place] [address]Dr. Nita Iverson UR MICRO IND INDICATED Normal [facility] Comment on above: Performed By: #### U MICRO, ERUR, PREGU ####[facility] [address] [place] [address]Dr. Nita Iverson Urobilinogen Qn (U) 1.0 {Senait'U}/dL Normal 0.2 - 1. 0 [facility] Comment on above: Performed By: #### U MICRO, ERUR, PREGU ####[facility] [address] [place] [address]Dr. Nita Ivesron LIPASEon 09-21-2022 Lipase [Catalytic activity/Vol] 89.0 U/L Normal 73.0-393.0 [facility] Comment on above: Performed By: #### C MADM, LIPA, CMP ####[facility] [address] [place], [place] [address]ZkDr. Nita Iverson URon 09-21-2022 , QUAL Negative Normal NEGATIVE [facility] Comment on above: Performed By: #### U MICRO, ERUR, PREGU ####[facility] [address] [place], [place] [address]OaDr. Nita Iverson PROF 14(COMP METB)on 023 Albumin [Mass/Vol] 3.5 g/dL Normal 3.4-5.0 [facility] Comment on above: Performed By: #### C MADM, LIPA, CMP #### [facility] [address] [place] [address] [address] Nita Iverson Albumin/Globulin [Mass ratio] 1.0 {ratio} Normal [facility] Comment on above: Performed By: #### C MADM, LIPA, CMP #### [facility] [address] [address] [address] Nita Iverson ALP [Catalytic activity/Vol] 67 U/L Normal 46-116 [facility] Comment on above: Performed By: #### C MADM, LIPA, CMP #### [facility] [address] [address] [address] Nita Iverson ALT [Catalytic activity/Vol] 30 U/L Normal 14-59 [facility] Comment on above: Performed By: #### C MADM, LIPA, CMP #### [facility] [address] [address] [address] Nita Iverson Anion gap [Moles/Vol] 11.8 mmol/L Normal [facility] Comment on above: Performed By: #### C MADM, LIPA, CMP #### [facility] [address] [address] [address] Nita Iverson AST [Catalytic activity/Vol] 25 U/L Normal 15-37 [facility] Comment on above: Performed By: #### C MADM, LIPA, CMP #### [facility] [address] [address] [address] Nita Iverson Bilirubin [Mass/Vol] 0.3 mg/dL Normal 0.2-1.0 [facility] Comment on above: Performed By: #### C MADM, LIPA, CMP #### [facility] [address] [address] [address] Nita Iverson Calcium [Mass/Vol] 9.2 mg/dL Normal 8.5-10.1 [facility] Comment on above: Performed By: #### C MADM, LIPA, CMP #### [facility] [address] [place] [address] Dr. Nita Iverson Chloride [Moles/Vol] 106 mmol/L Normal 98-107 [facility] Comment on above: Performed By: #### C MADM, LIPA, CMP #### [facility] [address] [place] [address] Dr. Nita Iverson CO2 [Moles/Vol] 28.7 mmol/L Normal 21.0-32.0 [place] Comment on above: Performed By: #### C MADM LIPA, CMP #### [facility] [address] [place] [address] Dr. Nita Iverson Creatinine [Mass/Vol] 0.81 mg/dL Normal 0.55-1.02 [facility] Comment on above: Performed By: #### C MADM, LIPA, CMP #### [facility] [address] [place] [address] Dr. Nita Iverson EGFR-AF SWEDISH >60 Normal >=60 [facility] Comment on above: Performed By: #### C MADM, LIPA, CMP #### [facility] [address] [place] [address] Dr. Nita Iverson EGFR-NON AF SWEDISH >60 Normal >=60 [facility] Comment on above: Performed By: #### C MADM, LIPA, CMP #### [facility] [address] [place] [address] Dr. Nita Iverson Globulin (S) [Mass/Vol] 3.5 g/dL Normal [facility] Comment on above: Performed By: #### C SHIVANI DENSON, CMP #### [facility] [address] [address] [address] Nita Iverson Glucose [Mass/Vol] 106 mg/dL Normal 74-106 [facility] Comment on above: Performed By: #### C SHIVANI DENSON, CMP #### [facility] [address] [address] [address] Nita Iverson Potassium [Moles/Vol] 4.5 mmol/L Normal 3.5-5.1 [facility] Comment on above: Performed By: #### C SHIVANI DENSON, CMP #### [facility] [address] [place] [address] Dr. Nita Iverson Protein [Mass/Vol] 7.0 g/dL Normal 6.4-8.2 [facility] Comment on above: Performed By: #### C SHIVANI DENSON, CMP #### [facility] [address] [address] [address] Nita Iverson Sodium [Moles/Vol] 142 mmol/L Normal 136-145 [facility] Comment on above: Performed By: #### C SHIVANI DENSON, CMP #### [facility] [address] [place] [address] Dr. Nita Iverson Urea nitrogen [Mass/Vol] 12.0 mg/dL Normal 7.0-18.0 [facility] Comment on above: Performed By: #### C SHIVANI DENSON, CMP #### [facility] [address] [place] [address] Dr. Nita Iverson Urea nitrogen/Creatinine [Mass ratio] 14.8 mg/mg Normal [facility] Comment on above: Performed By: #### C SHIVANI DENSON, CMP #### [facility] [address] [place] [address] Dr. Nita Iverson URINE MICROSCOPIC ONLYon BACTERIA NONE SEEN Normal NONE SEEN [facility] Comment on above: Performed By: #### U MICRO, ERUR, PREGU ####[facility] [address] [place] [address]Dr. Nita Iverson Bacteria identified Cx Nom (U) NOT INDICATED Normal [facility] Comment on above: Performed By: #### U MICRO, ERUR, PREGU ####[facility] [address] [place] [address]Dr. Nita Iverson CAST NONE SEEN Normal NONE SEEN [facility] Comment on above: Performed By: #### U MICRO, ERUR, PREGU ####[facility] [address] [place] [address]Dr. Nita Iverson Crystals LM Nom (Urine sed) NONE SEEN Normal NONE SEEN [facility] Comment on above: Performed By: #### U MICRO, ERUR, PREGU ####[facility] [address] [place] [address]Dr. Nita Iverson Epithelial cells LM Ql (Urine sed) RARE Normal NONE SEEN /RARE [facility] Comment on above: Performed By: #### U MICRO, ERUR, PREGU ####[facility] [address] [place] [address]Dr. Nita Iverson MUCOUS NONE SEEN Normal NONE SEEN [facility] Comment on above: Performed By: #### U MICRO, ERUR, PREGU ####[facility] [address] [place] [address]Dr. Nita Iverson RBC 20-50 Abnormal 0-2 [facility] Comment on above: Performed By: #### U MICRO, ERUR, PREGU ####[facility] [address] [place] [address]Dr. Nita Iverson WBC 2-5 Abnormal NONE SEEN [facility] Comment on above: Performed By: #### U MICRO, ERUR, PREGU ####[facility] [address] [place] [address]Dr. Nita Iverson US THYROIDon 09-06-2022 US THYROID EXAMINATION: US THYROID HISTORY: Non-toxic multinodular goiter COMPARISON: Ultrasound thyroid 03/08/2022 FINDINGS: RIGHT LOBE: Enlarged with heterogeneous echotexture. Questionable 7 x 4 x 3 mm nodule within superior lateral aspect, TR 4. Questionable 24 x 11 x 17 mm TR 3 nodule within mid body versus area of heterogeneity. Lobe size: 6.7 x 2.3 x 1.9 cm. LEFT LOBE: Enlarged with heterogeneous echotexture. Several small colloid cysts, largest is 4 mm. Lobe size: 5.4 x 2.1 x 1.7 cm. ISTHMUS: Thickened and heterogeneous echotexture. Suspect isthmus has a homogeneous 29 x 20 x 23 mm mass of uncertain etiology, likely representing extension of thyroid tissue. Thickness: 10 mm IMPRESSION: 1. Slightly enlarged markedly heterogeneous thyroid gland with questionable nodules versus parenchymal heterogeneity. Consider follow-up in one year. 2. Heterogeneous mass with similar echotexture to rest of thyroid gland seen cephalad to the isthmus; nonspecific but likely extension of thyroid tissue. Consider CT neck soft tissue with IV contrast for further evaluation. TR4 (moderately suspicious): If > 1.0 cm Follow-up ultrasound in 1, 2, 3, and 5 years. If > 1.5 cm fine needle aspiration (FNA). TR3 (mildly suspicious): > 1.5 cm, follow-up ultrasound in 1, 3, and 5 years. > 2.5 cm, fine needle aspiration. Electronically authenticated by: PREET RODRIGEZ Date: 2022-09-06 20:19 Normal [facility] MRI HIP RT WO CONon 08-19-19 23 MRI HIP RT WO CON EXAM: MRI HIP RT WO CON HISTORY: Right hip pain COMPARISON: X-rays 07/07/2022 TECHNIQUE: Axial and coronal large dftxv-ad-rqlf sequencing through the pelvis and both hips. Small jfmgj-hk-mbwb coronal, sagittal and axial sequencing through the right hip. FINDINGS: No fracture, dislocation, subluxation or osseous lesion. As demonstrated on the prior x-ray there is a benign 3.5 mm cyst within the superior aspect of the acetabulum. No hip joint effusions. Interstitial intermediate signal presumed to be myxoid in nature within the posterior superior aspect of the acetabular labrum at approximately the 11:00 position (coronal small otokx-hl-zbjc 14). The remainder of the labrum exhibits no gross irregularity. The left acetabulum is normal. The bilateral femoral head and acetabular cartilage exhibits no chondral or osteochondral irregularity. The pubic symphysis and sacroiliac joints are normal. Thickening and interstitial edema of the right gluteus medius tendon insertion to the greater trochanter (coronal small yeqzg-xe-ptew 13 and axial large bqcxa-zy-yehq 23). Mild amount of adjacent edema. No abnormal bursal fluid collection. Questionable mild thickening and interstitial edema of the left gluteus minimus tendon (coronal large xnfsx-fi-wumi 17 and axial large gqgxf-hy-mtyo 23 and to a lesser degree the gluteus medius tendon (coronal large xpvwz-yv-gxrp 21). No tendon tear, tendon tear or abnormal bursal fluid collection. The remainder of the visualized tendons exhibit no thickening, tear, edema or bursal fluid collections. No muscle edema, hematoma, atrophy or fatty infiltration. The superficial subcutaneous soft tissues are free of edema, hematoma, mass or cyst. IMPRESSION: 1. Mild right gluteus medius insertional tendinopathy. 2. Questionable to a lesser degree mild left gluteus minimus and medius insertional tendinopathy. 3. Presumed myxoid signal within the posterior superior acetabular labrum with no lora tearing. Electronically authenticated by: PAULETTE PHIPPS Date: 2022-08-18 22:39 Normal [facility] PAP ACOG PANEL 2: 30 to 65on 08-11-2022 . . Normal [facility] Comment on above: Result Comment: Perf ormed at: WB Performed By: #### [id number] ####[facility] [address] [place] [address]Dr. Nita Iverson Age Gdln ACOG Testing 30-65 Normal [facility] Comment on above: Performed By: #### [id number] ####[facility] [address] [place] [id number] Iverson DIAGNOSIS: Comment Normal [facility] Comment on above: Result Comment: NEGA TIVE FOR INTRAEPITHELIAL LESION OR MALIGNANCY. Performed at: WB Performed By: #### [id number] ####[facility] [address] [place] [address]DrMaribel Iverson HPV Aptima Negative Normal Negative [facility] Comment on above: Result Comment: This nucleic acid amplification test detects fourteen high-risk HPV types (16,18,31,33,35,39,45,51,52,56,58,59,66,68) without differentiation. Performed at: =G Performed By: #### [id number] ####[facility] [address] [place] [address]DrMaribel Iverson HPV Genotype Reflex Comment Normal [facility] Comment on above: Result Comment: Crit ernancy not met, HPV Genotype not performed. Performed at: WB Performed By: #### [id number] ####[facility] [address] [place], [place] [address]DrMaribel Iverson Methodology: Comment Normal [facility] Comment on above: Result Comment: This liquid based ThinPrep(R) pap test was screened with the use of an image guided system. Performed at: WB Performed By: #### [id number] ####[facility] [address] [place], [place] [address]DrMaribel Iverson Note: Comment Normal [facility] Comment on above: Result Comment: The Pap smear is a screening test designed to aid in the detection of premalignant and malignant conditions of the uterine cervix. It is not a diagnostic procedure and should not be used as the sole means of detecting cervical cancer. Both false-positive and false-negative reports do occur. . Performed at: WB Performed By: #### [id number] ####[facility] [address] [place], [place] [address]DrMaribel Iverson Performed by: Comment Normal [facility] Comment on above: Result Comment: Jordana Pruett, Nib Finisher (ASCP) Performed at: WB Performed By: #### [id number] ####[facility] [address] [place], [place] [address]DrMaribel Iverson Specimen adequacy: Comment Normal [facility] Comment on above: Result Comment: Sati sfactory for evaluation. No endocervical component is identified. Performed at: WB Performed By: #### [id number] ####[facility] [address] [place], [place] [address]DrMaribel Iverson US PELVIS AND TRANSVAGon US PELVIS AND TRANSVAG EXAMINATION: US PELVIS AND TRANSVAG HISTORY: Pelvic and perineal pain COMPARISON: No relevant comparison available. FINDINGS: The uterus is surgically absent The right ovary is normal in appearance measuring 2.5 x 1.3 x 1.6 cm. Normal color and Doppler flow The left ovary measures 3.6 x 1.8 x 2.0 cm. Normal color and Doppler flow. Area of anechoic echogenicity measuring 2.0 x 1.9 x 1.8 cm. No free fluid IMPRESSION: 2 cm left ovarian simple cyst Electronically authenticated by: PAULETTE GALVAN Date: 2022-06-06 17:51 Normal [facility] CT ABD/PELV WO W CONon 04-25 CT ABD/PELV WO W CON EXAMINATION: CT ABD/PELV WO W CON HISTORY: Kidney stone ; chronic hematuria; suprapubic cramping COMPARISON: CT abdomen pelvis 03/07/2022 TECHNIQUE: Axial, Coronal, and Sagittal images were obtained without and/or with IV contrast as indicated by examination type. Dose reduction techniques were achieved by using automated exposure control and/or adjustment of mA and/or kV according to patient size and/or use of iterative reconstruction technique. FINDINGS: LUNG BASES: No visible pulmonary or pleural disease. LIVER: No enlargement, atrophy, suspicious density, or significant focal lesion. BILIARY: No dilatation or calcification. PANCREAS: No lesion, fluid collection, or abnormal duct dilatation. SPLEEN: No enlargement or focal lesion. ADRENALS: No mass or enlargement. KIDNEYS: Stable nonobstructing 6 mm right kidney stone and 3 mm left kidney stone. Mild dilation of the right renal calyces and pelvis which occurred between the noncontrast and contrast sequences suggesting this is transitory. BOWEL/MESENTERY: 3 large stones are again seen within the cecum, approximately 19 x 11 mm. No visible mass, obstruction, or bowel wall thickening. AORTA/VASCULAR: No aneurysm or dissection. RETROPERITONEUM: No mass or adenopathy. LYMPH NODES: No adenopathy. URINARY BLADDER: Nondistended. No visible focal wall thickening, lesion, or calculus. PELVIC ORGANS: Hysterectomy. Small left ovary with small cyst versus follicle. ABDOMINAL WALL: No mass or hernia. BONES: No bony lesion or fracture. OTHER: Negative. IMPRESSION: 1. Stable bilateral nonobstructing nephrolithiasis. 2. Mild right hydronephrosis on delayed images which was not present on the noncontrast images suggesting this is transitory. 3. Stable appearance of 3 large stones within the cecum of uncertain etiology; no obstruction. Electronically authenticated by: PREET RODRIGEZ Date: 2022-04-25 08:09 Normal [facility] NM RENAL W_WO PHARMon 2021 NM RENAL W_WO PHARM EXAMINATION: NM RENAL W_WO PHARM HISTORY: Kidney stone COMPARISON: No relevant comparison available. TECHNIQUE: After IV administration of 10.2 mCi Tc-99m MAG-3, sequential renal flow images were acquired followed by sequential static images. Quantitative analysis was performed of both kidneys. Subsequently, the patient was given 2 mg Lasix IV for determination of renal washout. FINDINGS: ARTERIAL PERFUSION: Normal and symmetric. TIME TO PEAK (LEFT): 5.3 minutes (Normal-less than five minutes). TIME TO PEAK (RIGHT): 16.8 minutes (Normal-less than five minutes). PERCENT UPTAKE: Left 51 % : Right 49 % T 1/2 POST-LASIX (LEFT): 2.8 minutes. T 1/2 POST-LASIX (RIGHT): 9.5 minutes. (Normal < 10 min, equivocal 10-20 min, abnormal > 20 min.). BLADDER: Normal. OTHER: Negative. IMPRESSION: Nonobstructive right hydronephrosis with normal washout following Lasix Electronically authenticated by: PAULETTE GALVAN Date: 2022-03-22 17:23 Normal [facility] XR KUB 1 VIEWon 03-22-2022 XR KUB 1 VIEW EXAMINATION: XR KUB 1 VIEW HISTORY: Kidney stone COMPARISON: 10/21/2021 FINDINGS: KIDNEY/URETER - RIGHT: No visible renal or ureteral calcifications. KIDNEY/URETER - LEFT: No visible renal or ureteral calcifications. PELVIS: No visible ureteral calcifications. Any visible calcifications favor phleboliths. BOWEL: No abnormal dilation or deviation. BONES: No acute abnormality. OTHER: 3 round densities and suture lines in the right lower quadrant, stable IMPRESSION: No definite urinary tract calculi observed Electronically authenticated by: PAULETTE GALVAN Date: 2022-03-22 17:57 Normal [facility] US THYROIDon 03-09-2022 US THYROID EXAMINATION: US THYROID HISTORY: Non-toxic multinodular goiter COMPARISON: 08/10/2021 TECHNIQUE: Sonographic images of the thyroid gland were obtained. FINDINGS: The right thyroid lobe is enlarged measuring 6.0 x 2.8 x 2.0 cm. 3 focal nodules 2/1 cm Thyroid isthmus is enlarged measuring 6 mm. Single nodule over 1 cm The left thyroid lobe is enlarged measuring 5.3 x 2.0 x 2.2 cm. 2 focal nodules measuring less than 1 cm The 3 most suspicious nodules: Right inferior. 2.0 x 1.5 x 1.3 cm. Solid, hypoechoic, wide, smooth margins, no calcifications. TR 4 Nodule 2: Right inferior. 1.1 x 1.4 x 0.8 cm. Solid, isoechoic, wide, smooth margins, no calcification. TR 3 Nodule 3: Isthmus. 2.5 x 2.2 x 0.9 cm. Solid, isoechoic, wide, smooth margins, desiccation is. TR 3 IMPRESSION: Multinodular goiter, grossly stable TI-RADS: The [employer] TI-RADS committee's white paper recommendations for thyroid lesions classified as TR4 (moderately suspicious) are listed below: > 1.0 cm. Follow-up ultrasound in 1, 2, 3, and 5 years. > 1.5 cm. FNA. J. Am [employer] Radiol 2017;14:587-595. Electronically authenticated by: PAULETTE GALVAN Date: 2022-03-09 07:07 Normal [facility] CT ABD/PELV WO W CONon 03-07 CT ABD/PELV WO W CON EXAMINATION: CT ABD/PELV WO W CON HISTORY: Lora hematuria , chronic; mid abdominal pain and cramping; history of Crohn's disease and bowel resection COMPARISON: CT abdomen pelvis 04/26/2021 TECHNIQUE: Axial, Coronal, and Sagittal images were created without and with IV contrast. Dose reduction techniques were achieved by using automated exposure control and/or adjustment of mA and/or kV according to patient size and/or use of iterative reconstruction technique. FINDINGS: LUNG BASES: No visible pulmonary or pleural disease. LIVER: No enlargement, atrophy, suspicious density, or significant focal lesion. BILIARY: No dilatation or calcification. PANCREAS: No lesion, fluid collection, or abnormal duct dilatation. SPLEEN: No enlargement or focal lesion. ADRENALS: No mass or enlargement. KIDNEYS: Nonobstructing 6 mm stone within right kidney and 2 mm stone within left kidney. Dilated right renal pelvis and calyces which appears to be chronic, likely due to kinking or stricture of the proximal ureter. BOWEL/MESENTERY: 3 large stones within the cecum, approximately 19 x 11 x 11 mm each; also present on the prior study. Multiple surgical clips and sutures in region of cecum. No visible mass, obstruction, or bowel wall thickening. AORTA/VASCULAR: No aneurysm or dissection. RETROPERITONEUM: No mass or adenopathy. LYMPH NODES: No adenopathy. URINARY BLADDER: No visible focal wall thickening, lesion, or calculus. PELVIC ORGANS: Hysterectomy. Several follicles within left ovary. ABDOMINAL WALL: No mass or hernia. BONES: No bony lesion or fracture. OTHER: Negative. IMPRESSION: 1. Bilateral nonobstructing nephrolithiasis. 2. Right side mild chronic hydronephrosis suspected secondary to kinking or stricture of the proximal ureter; no appreciable mass or stone. 3. There are 3 large rim calcified stones remain within the cecum of uncertain etiology. Surgical changes of bowel noted; no acute findings. Electronically authenticated by: PREET RODRIGEZ Date: 2022-03-07 16:45 [facility] Office Visit (SILVERIO) -------- STACEY SAHU ([id number]) 1975 F Date Time Provider Department 02/21/22 1:00 PM SHIRAZ BO During your visit today, we recorded the following information about you: Pulse Blood pressure Weight 76/minute 138/85 88.8 kg Shiraz Bo DO 03/13/2022 1:15 PM Signed [facility] - Medical Spine Initial Exam SUBJECTIVE HISTORY OF PRESENT ILLNESS: Stacey Sahu is a 46 year old female who presents with a chief complaint of low back and leg pain and is seen in consultation requested by Dr. Breezy Muñoz for an opinion regarding above complaints. My final recommendations will be communicated back to the requesting physician by way of shared medical record or letter via US mail. Patient reports right lateral thigh pain from hip to knee for about 1 year, without inciting event. Also has chronic low back pain for years across bilateral low back. Right thigh pain is worse than low back. Does not extend below the knee. No pain on the left thigh. Denies numbness/tingling. Denies weakness. Denies bowel/bladder incontinence or saddle anesthesia, except for dribbling occasionally with sneezing, but has had 4 kids. The pain in right thigh is currently 4.5/10, but can get to 10/10 at night. The pain in low back is 3/10, can get to 5.5/10 with prolonged standing. PAIN EVALUATION No data found in the last 1 encounters. Pain Radiation: As above Aggravating Factors: Right thigh - Worse at night, Lying on right side Low back - prolonged standing Alleviating Factors: none Pain Ratio: right thigh worse than low back Current Treatment: Medications Tylenol ES or Naproxen, 2 pills - will use one or the other BID Therapies none Prior Treatment: Medications NSAIDs - Naproxen, Ibuprofen 800 mg - no relief Muscle relaxants - made her too sleepy - no relief Voltaren gel - no benefit Therapies PT at [facility] in [place] in June 2021 - 2 times per week for 1 month, exercises, TENS, ice - no relief Ice/heat Prior spine/MSK interventions: -12/31/21 Dr. Muñoz: R GTB CSI - minimal relief for 1 day. -06/2021 Possibly a R GTB CSI at a [facility] facility by CATERER'S AIDE - 45% relief for 2 days Prior spine surgery: Denies Previously treated by: -Ortho Dr. Muñoz, last 01/17/22, refer to Spine. 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: No Workers' Compensation: No YELLOW AND BLUE FLAGS No-Neg Attitude; Back Pain is Disabling No-Avoiding Activity (for Fear of Pain) YES-Depression or Anxiety Disorders No-Social Problems No-Substance Use Disorder No-Job Dissatisfaction No-Financial Disincentives Patient Entered Questionnaires Spine Questions 02/14/2022 Pain Location: Leg Pain Duration: 6 months - 1 year Pain over last 6 months: Every day or nearly every day in the past 6 months Symptoms from neck/cervical spine: Yes Employment Status: Working now Involved in law suit/legal claim: No Spine Red Flags 02/14/2022 Any type of cancer: No Unexplained fever: No Bowel or bladder disfunction: No Unintentional weight loss: No Osteoporosis: No Neck Questionnaires 02/14/2022 Benzel Modified SANTI Score Incomplete PROMIS Score Percentiles Physical Health 02/14/2022 Physical Function Percentile 66 Sleep Percentile 27* Fatigue Percentile 18* Pain Interference Percentile 12 PROMIS SOCIAL ROLE SCORE 02/14/2022 Social Role Satisfaction Percentile 31 PROMIS Global Health Scale 02/14/2022 Physical Health Percentile 10 Mental Health Percentile 13 Percentiles provide an indication of how the patient's score ranks in relation to the general population. Higher percentile rankings indicate better function/quality of life. 50th percentile is the average of the general population and indicates half of respondents had a worse score. Depression Screening: PHQ-9 02/14/2022 Score 10 PHQ-9 Self Harm 02/14/2022 Question 9 Not at all PHQ-9 Self-Harm (Item 9) response options: 0 Not at all 1 Several days 2 More than half the days 3 Nearly every day PHQ-9 Levels: 0-4 No - mild depression 5-9 Mild depression 10-14 Moderate depression 15-19 Moderately severe depression 20-27 Severe depression ACTIVE PROBLEM LIST (spontaneous vaginal delivery) x 4 Crohn's disease without complication (HCC) [id number] Pulmonary Htn (Hcc) Obese Nirmala (Obstructive Sleep Apnea) Gerd (Gastroesophageal Reflux Disease) Crohn's Disease of Intestine (Hcc) Enterolith of Small Intestine (Hcc) Bipolar Disease, Chronic (H (more content not included)... Normal [facility] MG MAMM SCREEN 3D GRACIE CADon 02-09-2022 MG MAMM SCREEN 3D GRACIE CAD Patient: STACEY SAHU Exam Date: 02/09/2022 : 1975 Gender:F Ordering : NIURKA RYAN [facility] Admission #: [id number] Family : Order #: [id number] CLICK HERE TO VIEW EXAM RADIOLOGY REPORT PROCEDURE: MAMMOGRAM SCREENING 3D BILATERAL CAD COMPARISON: MG MAMM SCREEN 3D GRACIE CAD, 09/17/2020. MG MAMM SCREEN GRACIE W CAD, 12/25/2018. INDICATIONS: Screening mammography Calculator Name NCI Breast Cancer Risk Assessment Tool 5 Year Breast Cancer Risk 1.70% Lifetime Breast Cancer Risk 18.60% Personal Breast Cancer No Personal Ovarian Cancer No Treatments None Family Cancers Aunt-maternal with breast cancer at age 40; Aunt-maternal with breast cancer at age 60; Aunt-maternal with breast cancer at age 60; Mother with breast cancer at age 65; Father with throat cancer at age 73; Aunt-paternal with colon cancer at age 55. LOCATION: [facility] BREAST COMPOSITION: Scattered areas fibroglandular density. FINDINGS: DIAGNOSTIC CATEGORY 2--BENIGN FINDING: RIGHT BREAST: No significant suspicious finding. No significant change has occurred. LEFT BREAST: No significant suspicious finding. Scattered benign-appearing lymph nodes are present. No significant change has occurred. RECOMMENDATIONS: ROUTINE MAMMOGRAM AND CLINICAL EVALUATION IN 12 MONTHS. PLEASE NOTE: A NORMAL MAMMOGRAM DOES NOT EXCLUDE THE POSSIBILITY OF BREAST CANCER. A CLINICALLY SUSPICIOUS PALPABLE LUMP SHOULD BE BIOPSIED. Dictated by: Preet Rodrigez M.D. on 02/09/2022 at 14:50 Approved by: Preet Rodrigez M.D. on 02/09/2022 at 14:53 Normal [facility] Covid-19 PCR (CVDTB)on SARS-CoV-2 (COVID-19) RNA IZAIAH+probe Ql (Unsp spec) Detected Critically abnormal NOT DETECTED [facility] Comment on above: Result Comment: This test is not yet approved or cleared by the [place] FDA. When there are no FDA-approved or cleared tests available, and other criteria are met, FDA can make tests available under an emergency access mechanism called an Emergency Use Authorization (EUA). The EUA for this test is supported by the Lane of Health and Human Service's declaration that circumstances exist to justify the emergency use of in vitro diagnostics for the detection and/or diagnosis of the virus that causes COVID-19. This EUA will remain in effect for the duration of the COVID-19 declaration justifying emergency of IVDs, unless it is terminated or revoked by the FDA (after which the test may no longer be used). Performed By: #### C VDTBH #### [facility] [address] [place] [address] Dr. Nita Figueroa 01-17-2022 [facility] Office Visit (LOORRM) -------- STACEY SAHU ([id number]) 1975 F Date Time Provider Department 01/17/22 3:30 PM BREEZY MUÑOZ During your visit today, we recorded the following information about you: Breezy Muñoz DO 01/17/2022 3:48 PM Signed SERVICE DATE: January 17, 2022 PCP: Essie Ryan, NIURKA, PRODUCTION PLANNER SCHEDULER Patient was self-referred. Subjective Patient ID: Stacey is a 46 year old female. She returns here today with continued complaints of right trochanteric bursal pain along with sciatic symptoms and low back pain. She states the injection I placed in her trochanter 2 weeks ago gave her no relief unfortunately. She does have paresthesias that go down her right leg to the level of her right knee. Chief Complaint: Patient presents with: Right Hip - Follow Up PAIN EVALUATION 01/17/2022 1530 Pain Level: 8 Pain Location: Hip-Right Description: Sharp Duration Units: Unknown Frequency: Continuous Intervention/Comfo rt measure: Reposition;Relaxat ion;Positioning;He at;Cold HPI TREATMENTS PRIOR TO INITIAL CONSULT: Right Corticosteroid Injection(s) Review of Systems ACTIVE PROBLEM LIST (spontaneous vaginal delivery) x 4 Crohn's disease without complication (HCC) [id number] Pulmonary Htn (Hcc) Obese Nirmala (Obstructive Sleep Apnea) Gerd (Gastroesophageal Reflux Disease) Crohn's Disease of Intestine (Hcc) Enterolith of Small Intestine (Hcc) Bipolar Disease, Chronic (Hcc) Other Hyperlipidemia PAST MEDICAL HISTORY Diagnosis Date - Abnormal uterine bleeding s/p hysterectomy - Bipolar disorder (HCC) - Crohn's disease of intestine (HCC) s/p surgery - GERD (gastroesophageal reflux disease) - Obese - NIRMALA (obstructive sleep apnea) - Pulmonary HTN (HCC) resolved 2017 PAST SURGICAL HISTORY Procedure Laterality Date - COLONOSCOPY - HYSTERECTOMY 2016 - LAPAROSCOPIC HEMICOLECTOMY 2002 Ileocecectomy for Crohn's - LAPAROSCOPY DIAGNOSTIC 06/2016 - MIDLINE INSERTION/CONSULT 12/14/2020 - THERMAL ENDOMETRIAL ABLATION 2011 - TOTAL ABDOM HYSTERECTOMY ovaries intact - TUBAL LIGATION HX 2003 FAMILY HISTORY Problem Relation Age of Onset - Breast Cancer Mother - Ischemic Heart Disease Father - Diabetes Father - Cancer Father esophageal, lung - Hypertension Father - No Known Problems Daughter - No Known Problems Daughter - No Known Problems Son - No Known Problems Son Social History Tobacco Use - Smoking status: Never Smoker - Smokeless tobacco: Never Used Substance Use Topics - Alcohol use: No - Drug use: No ALLERGIES Allergen Reactions - Penicillins Unknown MEDICATIONS: atorvastatin (LIPITOR) 20 mg tablet Take 20 mg by mouth once daily. carBAMazepine (TEGRETOL) 200 mg tablet Take 300 mg by mouth daily at bedtime. acetaminophen (TYLENOL) 325 mg tablet Take 2 tablets by mouth every 6 hours as needed. Omeprazole 40 mg capsule Take 40 mg by mouth once daily. cetirizine (ZYRTEC) 10 mg tablet Take 10 mg by mouth once daily. citalopram (CELEXA) 20 mg tablet Take 20 mg by mouth once daily. Allergies, medications, past surgical history, family history and past medical history were reviewed per this encounter. Objective Ortho Exam alert pleasant female oriented x3. She went skin does have tenderness over her right greater trochanter. She also has tenderness over her lower lumbar spine. Minimal tenderness is noted in her sciatic notch. No other tenderness is noted about her right hip. Neurovascular is otherwise intact into her right lower extremity with full range of motion of her hip knee and ankle. Assessment/Plan ASSESSMENT Diagnosis (M70.61) Trochanteric bursitis of right hip (primary encounter diagnosis) Plan: CONSULT TO [facility]INE MEDICAL [facility] (M51.27) Lumbago-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 Plan: CONSULT TO [facility] Office Visit on 01/17/22 - CONSULT TO [facility] PLAN I recommend she go to the medical spine clinic for further work-up and treatment of her sciatic symptoms. FOLLOW-UP: Return Medical spine clinic. I reviewed the information obtained and documented by the me. I examined the patient and evaluated all available films and pertinent documents. We discussed the case and I agree with the plans as outlined in this note. SIGNATURE: Breezy Muñoz DO PATIENT NAME: Stacey Sahu DATE: January 17, 2022 TIME: 3:46 PM Referring Provider: SELF [200] Allergies As of Date: 01/17/2022 Noted Allergy Reaction PENICILLINS 07/27/2016 16 - Unknown Date Reviewed: 01/17/2022 Reviewed by: Nadja Moore MA - Fully Assessed Reason for Visit: Follow Up [171] Primary Visit Diagnosis:Trochant edwige bursitis of right hip [M70.61] Other Visit Diagnosis:Lumbago- 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 [M51.27] Order(s):CONSULT TO S (more content not included)... Normal [facility] CNOVon 12-31-2021 CNOV Office Visit (LOORRM) -------- STACEY SAHU ([id number]) 1975 F Date Time Provider Department 12/31/21 1:00 PM BREEZY MUÑOZ During your visit today, we recorded the following information about you: Breezy Muñoz DO 12/31/2021 1:10 PM Signed SERVICE DATE: December 31, 2021 PCP: Essie Ryan CNP, PRODUCTION PLANNER SCHEDULER Patient was self-referred. Subjective Patient ID: Stacey is a 46 year old female. Here today with complaints of right greater trochanteric pain with some radiation down the lateral aspect of her right thigh to her knee. She has had back symptoms in the past but she states these have improved. She states this pain does not affect her walking activities. It does affect her sitting activities and she cannot sit on her right cheek. She denies any pain with cough or sneeze. She has taken some NSAIDs with little to no relief. She did have an injection sounded like a sacroiliac injection in the past. Chief Complaint: Patient presents with: Right Hip - New PAIN EVALUATION 12/31/2021 1253 Pain Level: 5 Pain Location: Hip-Right Description: Aching Duration Amount of Time: 7 Duration Units: Months Frequency: Continuous Intervention/Comfo rt measure: Medication HPI TREATMENTS PRIOR TO INITIAL CONSULT: Oral NSAIDS Review of Systems ACTIVE PROBLEM LIST (spontaneous vaginal delivery) x 4 Crohn's disease without complication (HCC) [id number] Pulmonary Htn (Hcc) Obese Nirmala (Obstructive Sleep Apnea) Gerd (Gastroesophageal Reflux Disease) Crohn's Disease of Intestine (Hcc) Enterolith of Small Intestine (Hcc) Bipolar Disease, Chronic (Hcc) Other Hyperlipidemia PAST MEDICAL HISTORY Diagnosis Date - Abnormal uterine bleeding s/p hysterectomy - Bipolar disorder (HCC) - Crohn's disease of intestine (HCC) s/p surgery - GERD (gastroesophageal reflux disease) - Obese - NIRMALA (obstructive sleep apnea) - Pulmonary HTN (HCC) resolved 2016 PAST SURGICAL HISTORY Procedure Laterality Date - COLONOSCOPY - HYSTERECTOMY 2016 - LAPAROSCOPIC HEMICOLECTOMY 2001 Ileocecectomy for Crohn's - LAPAROSCOPY DIAGNOSTIC 06/2016 - MIDLINE INSERTION/CONSULT 12/14/2020 - THERMAL ENDOMETRIAL ABLATION 2012 - TOTAL ABDOM HYSTERECTOMY ovaries intact - TUBAL LIGATION HX 2002 FAMILY HISTORY Problem Relation Age of Onset - Breast Cancer Mother - Ischemic Heart Disease Father - Diabetes Father - Cancer Father esophageal, lung - Hypertension Father - No Known Problems Daughter - No Known Problems Daughter - No Known Problems Son - No Known Problems Son Social History Tobacco Use - Smoking status: Never Smoker - Smokeless tobacco: Never Used Substance Use Topics - Alcohol use: No - Drug use: No ALLERGIES Allergen Reactions - Penicillins Unknown MEDICATIONS: atorvastatin (LIPITOR) 20 mg tablet Take 20 mg by mouth once daily. carBAMazepine (TEGRETOL) 200 mg tablet Take 300 mg by mouth daily at bedtime. acetaminophen (TYLENOL) 325 mg tablet Take 2 tablets by mouth every 6 hours as needed. Omeprazole 40 mg capsule Take 40 mg by mouth once daily. cetirizine (ZYRTEC) 10 mg tablet Take 10 mg by mouth once daily. citalopram (CELEXA) 20 mg tablet Take 20 mg by mouth once daily. Allergies, medications, past surgical history, family history and past medical history were reviewed per this encounter. Objective Ortho Exam alert pleasant female oriented x3. She does sit with a sciatic list off to the left. She has no tenderness to palpation of her lumbar spine or sciatic notch on the right. She is point tender over her right greater trochanter. Her bench test is negative. She has a full nonpainful range of motion of her right hip. She has a negative February Jose's. No other tenderness is noted about her hip and right lower extremity. Neurovascular is otherwise intact into her right lower extremity the full range of motion of her knee and ankle. Assessment/Plan ASSESSMENT Diagnosis (M70.61) Trochanteric bursitis of right hip (primary encounter diagnosis) No orders found for this visit on 12/31/21. PLAN I recommend injecting her right greater trochanter. UNIVERSAL PROTOCOL / SAFETY CHECKLIST Procedure to be Performed: Corticosteroid injection right greater trochanter Sign In: A Moment of CARE was completed. Personnel directly involved with the procedure wore the appropriate PPE (Personal Protective Equipment). Patient/Surrogate Stated/Verified: PATIENT VERIFIED(optional for EMERGENT procedures): Patient name, Date of , Relevant allergies and The intended procedure Time Out Communication: Intended patient and procedure match the source documents. Consent documented and matches the intended procedure. Sign Out: SIGN OUT (optional for EMERGENT procedures): Post-procedure follow-up management communicated and Plan of Care Vi (more content not included)... Normal [facility] MR femur RT wo/w conon 12-04 MR femur RT wo/w con [facility] [place] [address] MRI Report Signed Patient: Stacey Sahu MR#: [id number] : 1975 Acct:[id number] Age/Sex: 46 / F ADM Date: 12/03/21 Loc: MR Room: Type: [facility] Attending Dr: Alexis Saenz II, MD Ordering Provider: Alexis Saenz MD Date of Service: 12/03/21 MR/MR femur RT wo/w con: Right hip pain Copies to: Alexis Saenz MD MRI right femur 12/03/2021. CLINICAL DATA: Right hip pain with radiation to the knee. TECHNIQUE: MRI of the right femur was performed without and with intravenous contrast. COMPARISON: Plain radiographs right hip and right femur 11/17/2021. FINDINGS: There is hyperintense T2-weighted/STIR signal in the soft tissues adjacent to the greater trochanter of the proximal femur. This finding could be related to gluteus medius and minimus tendon injuries. There may also be mild trochanteric bursitis. Artifact limits evaluation of this region. No bony signal abnormality is identified. There are mild degenerative changes at the hip and knee. No bony erosion or destruction is seen. No soft tissue mass is visualized. No abnormal contrast enhancement is noted. The wall of the urinary bladder appears thickened, however, the bladder is not distended. There are bilateral adnexal cysts. MR/MR femur RT wo/w con IMPRESSION: 1. Signal changes suspicious for gluteus medius and minimus tendon injuries at the greater trochanter of the proximal femur. 2. Possible mild trochanteric bursitis. 3. Mild degenerative changes at the hip and knee. 4. No bony signal abnormality. 5. No soft tissue mass or abnormal enhancement. Impression dictated by: Breezy Stock Jr., M.D.12/04/2021 3:45 PM Dictation Location: [place] [address] Transcribed By: [facility] 12/04/21 1545 Dictated By: Breezy Stock Jr, MD 12/04/21 1519 Signed By: 12/04/21 1545 Normal [facility] XR femur RT 2V*on 11-17-2021 XR femur RT 2V* [facility] [place] [address] [place] [address] XRay Report Signed Patient: Stacey Sahu MR#: [id number] : 1975 Acct:[id number] Age/Sex: 46 / F ADM Date: 11/17/21 Loc: [facility] Room: Type: [facility] Attending Dr: Alexis Saenz II, MD Ordering Provider: Alexis Saenz MD Date of Service: 11/17/21 XR/XR hip RT min 2V(w/wo pelvis)*: Right hip pain ([id number]) XR/XR femur RT 2V*: Right hip pain Copies to: Alexis Saenz MD 2 views RIGHT hip single view pelvisplain film COMPARISON: 2 HISTORY:RIGHT hip pain for months. Worsening. No fracture, dislocation or focal soft tissue abnormality seen.Minor SI joint and hip degeneration seen bilaterally. Lower lumbar hypertrophic facet changes identified. Pelvic vascular calcifications. RIGHT lower quadrant surgical clips. Benign appearing overlying density RIGHT lower quadrant present. XR/XR hip RT min 2V(w/wo pelvis)* IMPRESSION:Minor bilateral facet degeneration.No acute findings. 2 views of the RIGHT femur No bony lesions seen. No significant knee degeneration identified. Note joint effusion. No fracture or dislocation. No soft tissue abnormality. IMPRESSION: Unremarkable exam. Impression dictated by: Vipin Iniguez M.D.11/17/2021 3:56 PM Dictation Location: [place] [address] Transcribed By: [facility] 11/17/21 1556 Dictated By: Vipin Iniguez DO 11/17/21 1553 Signed By: 11/17/21 1556 [facility] Large Joint Arthro/Inj: R gr eater trochanteric bursa [facility] Vital Signs Date Time Vital Sign Value Performing Clinician Facility 06-28-2023 10:34-0500 Body height 149.9 cm Evans Verhoff PA-C [facility] 06-28-2023 10:34-0500 Body mass index (BMI) [Ratio] 38.78 kg/m2 Evans Verhoff PA-C [facility] 06-28-2023 10:34-0500 Body weight 87.09 kg Evans Verhoff PA-C [facility] 06-28-2023 10:34-0500 Diastolic blood pressure 107 mm[Hg] Evans Verhoff PA-C [facility] 06-28-2023 10:34-0500 Heart rate 93 /min Evans Verhoff PA-C Work Phone: [employer] 06-28-2023 10:34-0500 SaO2% (BldA) [Mass fraction] 97 % Evans Verhoff PA-C Work Phone: [employer] 06-28-2023 10:34-0500 Systolic blood pressure 139 mm[Hg] Evans Verhoff PA-C Work Phone: [facility] [employer] [facility] 05-29-2023 14:39-0500 Blood Pressure Location Josechamp GARCIA [facility] 05-29-2023 14:39-0500 Diastolic blood pressure 83 mm[Hg] Josechamp GARCIA [facility] 05-29-2023 14:39-0500 Heart rate 88 /min Josechamp GARCIA [facility] 05-29-2023 14:39-0500 Respiratory rate 16 /min Jose GARCIA [facility] 05-29-2023 14:39-0500 Systolic blood pressure 131 mm[Hg] Josechamp GARCIA [facility] 11-24-2022 13:48-0400 Diastolic blood pressure 106 mm[Hg] Beth SALAM [facility] 11-24-2022 13:48-0400 Mean blood pressure 121 mm[Hg] Beth SALAM [facility] 11-24-2022 13:48-0400 Systolic blood pressure 152 mm[Hg] Beth SALAM [facility] 11-24-2022 13:46-0400 Blood Pressure Location Beth SALAM [facility] [facility] 11-24-2022 13:46-0400 Diastolic blood pressure 118 mm[Hg] Beth SALAM [facility] 11-24-2022 13:46-0400 Heart rate 80 /min Beth SALAM [facility] 11-24-2022 13:46-0400 Respiratory rate 16 /min Ignacia KHAN [facility] 11-24-2022 13:46-0400 Systolic blood pressure 161 mm[Hg] Beth SALAM [facility] 04-26-2022 12:03-0400 Blood Pressure Location Jose GARCIA [facility] 04-26-2022 12:03-0400 Diastolic blood pressure 95 mm[Hg] Jose GARCIA [facility] 04-26-2022 12:03-0400 Heart rate 102 /min Jose GARCIA [facility] 04-26-2022 12:03-0400 Systolic blood pressure 141 mm[Hg] Jose GARCIA [facility] 02-21-2022 12:39-0400 Body weight 88.81 kg Shiraz Sykesis DO Work Phone: [facility] 02-21-2022 12:39-0400 Diastolic blood pressure 85 mm[Hg] Shiraz Mendis DO Work Phone: [facility] 02-21-2022 12:39-0400 Heart rate 76 /min Shiraz Mendis DO Work Phone: [facility] 02-21-2022 12:39-0400 Systolic blood pressure 138 mm[Hg] Shiraz Mendis DO Work Phone: [facility] 12-09-2021 09:00-0400 Body height 160.02 cm Alexis Saenz II Other [facility] Other 12-09-2021 09:00-0400 Body mass index (BMI) [Ratio] 34.47 kg/m2 Alexis Saenz II Other [facility] Other 12-09-2021 09:00-0400 Body weight 88.27 kg Alexis Saenz II Other [facility] Other 11-17-2021 15:30-0400 Body height 160.02 cm Alexis Saenz II Other [facility] Other 11-17-2021 15:30-0400 Body mass index (BMI) [Ratio] 32.41 kg/m2 Alexis Saenz II Other [facility] Other 11-17-2021 15:30-0400 Body weight 83.01 kg Alexis Saenz II Other [facility] Other Encounters Encounter Date Encounter Type Care Provider Facility Start: 10-02-2023 ambulatory Jose GARCIA Facili ty:[facility] Start: 07-13-2023 End: 07-14-2023 ambulatory ESSIE AICHHOLZ Not Available Start: 07-11-2023 End: 07-11-2023 ambulatory Juliana Block Other [facility] Other Start: 07-11-2023 Office outpatient vi sit 25 minutes Juliana Block [facility] Start: 07-04-2023 End: 07-04-2023 ambulatory ESSIE AICHHOLZ Not Available Start: 06-28-2023 End: 06-28-2023 ambulatory EVANS ANDERSON [facility] Start: 06-28-2023 End: 06-28-2023 Office outpatient visit 15 minutes Evans Anderson PA-C Work Phone: [facility] Comment on above: Lumbar radiculopathy (Primary Dx) Start: 05-29-2023 End: 05-30-2023 ambulatory Jose GARCIA Facility:[facility] Start: 05-29-2023 End: 05-29-2023 Patient encounter procedure Jose GARCIA [facility] Start: 05-10-2023 End: 05-10-2023 ambulatory NEDA CACERES Not Available Start: 02-02-2023 End: 02-03-2023 [facility]ulatory [facility] Start: 02-02-2023 End: 02-03-2023 ambulatory Beth SALAM Facility[facility] Start: 02-02-2023 End: 02-02-2023 Lab Drop off Beth SALAM [facility] Start: 02-01-2023 End: 02-02-2023 ambulatory Beth SALAM Facility:[facility] Start: 02-01-2023 End: 02-01-2023 Patient encounter procedure Beth SALAM [facility] Start: 01-05-2023 End: 01-06-2023 ambulatory Beth SALAM Facility:[facility] Start: 01-03-2023 End: 01-04-2023 ambulatory Beth SALAM Facility:CD:[id number] Start: 12-06-2022 End: 12-07-2022 ambulatory Beth SALAM Facility:[facility] Start: 12-06-2022 End: 12-06-2022 Patient encounter procedure Beth SALAM [facility] Start: 11-24-2022 End: 11-25-2022 ambulatory [facility] Start: 11-24-2022 End: 11-24-2022 Patient encounter procedure Beth SALAM [facility] Start: 11-22-2022 End: 11-23-2022 ambulatory CAN VALERA Facility: Start: 11-08-2022 End: 11-08-2022 ambulatory [facility] Start: 11-08-2022 End: 11-08-2022 Encounter for preprocedural cardiovascular examination [facility] Start: 11-08-2022 End: 11-09-2022 ambulatory BYRON YEHKISHORCandice . Facility:[facility] Start: 10-26-2022 End: 10-27-2022 ambulatory NIURKA RYAN Facility:[facility] Start: 10-18-2022 End: 10-18-[address] NEDA CACERES Facility:[facility] Start: 10-04-2022 End: 10-05-[address] NEDA CACERES Facility:[facility] Start: 09-28-2022 [facility]ulatory [facility] Start: 09-21-2022 End: 09-22-2022 ambulatory EDNA MCRAE . Facility:[facility] Start: 09-06-2022 End: 09-07-[address] NEDA CACERES Facility:[facility] Start: 08-18-2022 End: 08-19-2022 ambulatory SHARONA Bazzi APLFELIPE Facility:[facility] Start: 08-04-2022 End: 08-05-[address] MARKO MORALES . Facility:[facility] Start: 08-04-2022 End: 08-04-[address] ADÁN TORRES . Facility:[facility] Start: 07-19-2022 End: 07-19-[address] MARKO MORALES . Facility:[facility] Start: 07-07-2022 End: 07-08-2022 ambulatory ARTURO DELANEY . Facility:[facility] Start: 06-09-2022 End: 06-10-[address] MARKO MORALES . Facility:[facility] Start: 06-06-2022 End: 06-07-[address] ADÁN TORRES . Facility:[facility] Start: 04-26-2022 End: 04-26-2022 Patient encounter procedure Joes GARCIA [facility] Jose Angel Start: 04-22-2022 End: 04-23-2022 ambulatory NIURKA RYAN Facility:[facility] Start: 03-29-2022 End: 03-30-[address] MARKO MORALES . Facility:[facility] Start: 03-22-2022 End: 03-23-2022 ambulatory NIURKA RYAN Facility:[facility] Start: 03-22-2022 End: 03-23-[address] MARKO MORALES . Facility:[facility] Start: 03-08-2022 End: 03-09-[address] NEDA CACERES Facility:[facility] Start: 03-08-2022 End: 03-08-2022 Patient encounter procedure Jose GARCIA [facility] Start: 03-07-2022 End: 03-08-2022 ambulatory NIURKA RYAN Facility:[facility] Start: 02-21-2022 End: 02-21-2022 ambulatory ESSIE ALANIZSAEKamila Facility:[facility] Start: 02-21-2022 End: 02-21-2022 Patient encounter procedure Shiraz Bo DO Work Phone: Spine Medicine Comment on above: Tendinopathy of righ t gluteal region (Primary Dx); Trochanteric bursitis of right hip; Chronic bilateral low back pain without sciatica; Lumbar spondylosis Start: 02-09-2022 End: 02-10-2022 ambulatory NIURKA RYAN Facility:[facility] Start: 01-24-2022 End: 01-24-2022 ambulatory NIURKA RYAN Facility:[facility] Start: 01-17-2022 End: 01-17-2022 ambulatory ESSIE RYAN Facility:[facility] Start: 01-17-2022 End: 01-17-2022 Patient encounter procedure Breezy Muñoz DO Work Phone: Orthopaedics Comment on above: Trochanteric bursiti s of right hip (Primary Dx); Lumbago-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 Start: 01-05-2022 End: 01-05-2022 ambulatory Alexis Saenz II Other [facility] Other Start: 01-05-2022 Telephone encounter Alexis Dany II [facility] Start: 12-31-2021 End: 12-31-2021 ambulatory BREEZY MUÑOZ Facility:[facility] Start: 12-31-2021 End: 12-31-2021 Patient encounter procedure Breezy Muñoz DO Work Phone: Orthopaedics Comment on above: Trochanteric bursiti s of right hip (Primary Dx) Start: 12-09-2021 End: 12-09-2021 ambulatory Alexis Dany II Other [facility] Other Start: 12-09-2021 Office outpatient vi sit 25 minutes Alexis Dany II [facility] Start: 11-17-2021 End: 11-17-2021 ambulatory Alexis Columbus II Other [facility] Other Start: 11-17-2021 Office outpatient ne w 45 minutes Alexis Dany II [facility] Start: 06-02-2017 End: 06-03-2017 Ambulatory DEFAULT PHYSICIAN Facility:[facility] Start: 05-15-2017 End: 05-16-2017 Ambulatory DEFAULT PHYSICIAN Facility:[facility] Start: 05-01-2017 End: 05-02-2017 Ambulatory DEFAULT PHYSICIAN Facility:[facility] Procedures Date Procedure Procedure Detail Performing Clinician Start: 12-24-2022 Lobectomy of thyroid gland Jose GARCIA Start: 02-14-2022 Adult depression scr eening assessment Shiraz Bo DO Work Phone: Start: 12-31-2021 Arthrocentesis aspir &/inj major jt/bursa w/o us Breezy Muñoz DO Work Phone: Start: 12-15-2020 Colonoscopy Breezy sotelo DO Work Phone: Hysterectomy Jose GARCIA Laparoscopy Jose GARCIA Other bilateral liga tion and division of fallopian tubes Jose GARCIA partial colectomy Jose LANGLEY Tonsillectomy Jose GARCIA Plan of Treatment Date Care Activity Detail Author Start: 2036 HEPATITIS B (1 of 3 - Risk 3-dose series) HEPATITIS B (1 of 3 - Risk 3-dose series) [facility] Start: 06-28-2024 Adult BMI Screening Adult BMI Screening [facility] Start: 06-28-2024 Tobacco Screening Tobacco Screening [facility] Start: 12-15-2023 DIABETES SCREEN DIABETES SCREEN [facility] Start: 08-30-2023 End: 08-30-2023 Patient encounter procedure 08/30/2023 8:15 AM EST Office Visit [facility] [address] [place] [id number] Evans Anderson, PAAllan [address] [facility] [place], [place] [id number] [facility] Start: 02-24-2023 Influenza vaccination Influenza Vaccine [facility] Start: 02-14-2023 Adult depression screening assessment DEPRESSION SCREENING [facility] Start: 02-24-2022 Influenza vaccination INFLUENZA (#1) [facility] Start: 12-15-2021 Colonoscopy COLONOSCOPY [facility] Start: 12-15-2021 COLORECTAL CANCER SCREENING COLORECTAL CANCER SCREENING [facility] Start: 2021 COLOGUARD (FIT-DNA) COLOGUARD (FIT-DNA) [facility] Start: [address] COLONOGRAPHY [facility] Start: 2021 FECAL OCCULT BLOOD FECAL OCCULT BLOOD [facility] Start: 2021 LIPID SCREEN LIPID SCREEN [facility] Start: 2021 SIGMOIDOSCOPY SIGMOIDOSCOPY [facility] Start: 2016 Mammography MAMMOGRAM [facility] Start: 2006 HPV TESTING HPV TESTING [facility] Start: 1997 PAP TESTING PAP TESTING [facility] Start: 1995 DTaP,Tdap and Td Vaccines (1 - Tdap) DTaP,Tdap and Td Vaccines (1 - Tdap) [facility] Start: 1995 HEPATITIS B (1 of 3 - Risk 3-dose series) HEPATITIS B (1 of 3 - Risk 3-dose series) [facility] Start: 1995 Urine microalbumin profile DTAP,TDAP,TD (1 - Tdap) [facility] Start: 1994 Adult BMI Follow Up Plan Adult BMI Follow Up Plan [facility] Start: 1994 HIV SCREENING HIV SCREENING [facility] Start: 1994 MMR (1 of 2 - Risk 2-dose series) MMR (1 of 2 - Risk 2-dose series) [facility] Start: 1988 Adult depression screening assessment DEPRESSION SCREENING [facility] Start: 1986 MENINGOCOCCAL B: Consider based on risk (1 of 4 - Increased Risk Bexsero 2-dose series) MENINGOCOCCAL B: Consider based on risk (1 of 4 - Increased Risk Bexsero 2-dose series) [facility] Start: 1977 HEPATITIS A (1 of 2 - Risk 2-dose series) HEPATITIS A (1 of 2 - Risk 2-dose series) [facility] Start: 1976 COVID-19 VACCINE (#1) COVID-19 VACCINE (#1) [facility] Immunizations Immunization Date Immunization Notes Care Provider Kati swift 05-03-2012 influenza, whole Jose WOOTEN [facility] 05-03-2012 influenza virus vaccine, unspecified formulation Evans Anderson PA-C Work Phone: [facility] Payers Date Payer Category Payer Private Health Insurance [facility] [employer] [facility] [id number] 2022-Present [phone] [address] [place] [address] [id number] 2020 Medicaid [facility] MEDICAID [facility] COMM[facility] MEDICAID [id number] 2020-Present [phone] [address] [place] [address] Medicaid [id number] 2020 Medicaid [facility] MEDICAID [facility] COMMUNITY PLAN MEDICAID [place] [id number] 2020-Present [phone] [address] [place] [address] Medicaid [id number] 1976 Unknown [id number] 2.16.840.1.951534.3.579. 2.593 1976 Unknown [id number] 2.16.840.1.050937.3.579. 2.593 1976 Unknown [id number] 2.16.840.1.539993.3.579. 2.593 1976 Unknown [id number] 2.16.840.1.617889.3.579. 2.593 1976 Unknown [id number] 2.16.840.1.724520.3.579. 2.593 1976 Unknown [id number] 2.16.840.1.410056.3.579. 2.593 1976 Unknown [id number] 2.16.840.1.335268.3.579. 2.593 1976 Unknown [id number] 2.16.840.1.340008.3.579. 2.593 1976 Unknown [id number] 2.16.840.1.440915.3.579. 2.593 1976 Unknown [id number] 2.16.840.1.053207.3.579. 2.593 1976 Unknown [id number] 2.16.840.1.687278.3.579. 2.593 1976 Unknown [id number] 2.16.840.1.682673.3.579. 2.593 1976 Unknown [id number] 2.16.840.1.163355.3.579. 2.593 1976 Unknown [id number] 2.16.840.1.749432.3.579. 2.593 1976 Unknown [id number] 2.16.840.1.609735.3.579. 2.593 1976 Unknown [id number] 2.16.840.1.894337.3.579. 2.593 1976 Unknown [id number] 2.16.840.1.308185.3.579. 2.593 1976 Unknown [id number] 2.16.840.1.937755.3.579. 2.593 1976 Unknown [id number] 2.16.840.1.478382.3.579. 2.593 1976 Unknown [id number] 2.16.840.1.649587.3.579. 2.593 1976 Unknown [id number] 2.16.840.1.042283.3.579. 2.593 1976 Unknown [id number] 2.16.840.1.945141.3.579. 2.593 1976 Unknown [id number] 2.16.840.1.125147.3.579. 2.593 1976 Unknown [id number] 2.16.840.1.080004.3.579. 2.727 1976 Unknown [id number] 2.16.840.1.701903.3.579. 2.727 1976 Unknown [id number] 2.16.840.1.035881.3.579. 2.727 1976 Unknown [id number] 2.16.840.1.894989.3.579. 2.727 1976 Unknown [id number] 2.16.840.1.075462.3.579. 2.727 1976 Unknown [id number] 2.16.840.1.720285.3.579. 2.727 1976 Unknown [id number] 2.16.840.1.721656.3.579. 2.727 1976 Unknown [id number] 2.16.840.1.864622.3.579. 2.727 1976 Unknown [id number] 2.16.840.1.653575.3.579. 2.727 1976 Unknown [id number] 2.16.840.1.581987.3.579. 2.727 1976 Unknown [id number] 2.16.840.1.891431.3.579. 2.1286 1976 Unknown [id number] 2.16.840.1.355518.3.579. 2.1259 1976 Unknown [id number] 2.16.840.1.909479.3.579. 2.1259 1976 Unknown [id number] 2.16.840.1.227864.3.579. 2.1259 1959 Unknown [id number] 2.16.840.1.878928.19 1959 Unknown [id number] Unknown Social History Date Type Detail Facility Start: 08-06-2020 End: 06-28-2023 Sex Assigned At [facility] Other Start: 07-27-2016 End: 04-12-2023 Tobacco smoking status COIS Never smoked tobacco [facility] Start: 07-27-2016 End: 04-12-2023 Tobacco use and exposure Smokeless tobacco non-user [facility] Start: 12-15-2020 End: 06-28-2023 Alcohol intake Current non-drinker of alcohol (finding) [facility] Start: 1975 Sex Assigned At Not on file [facility] Start: 01-07-2022 End: 02-21-2022 Exposure to SARS-CoV-2 (event) Not sure [facility] Tobacco Past [facility] Comment on above: stopped 12 years ago stopped 12 years ago Tobacco smoking status No Smoking Status Entered [facility] Jose Angel Tobacco smoking status Never [facility] Start: 08-06-2020 End: 06-28-2023 History of Social function [facility] Functional Status Date Assessment Result Facility 05-29-2023 Functional Status N/A [facility] 11-24-2022 Functional Status N/A [facility] 04-26-2022 Functional Status N/A [facility] Jose Angel Clinical Notes 12-14-2020 to 07-11-2023 Note Date & Type Note Facility 07-11-2023 Evaluation note Encounter Date Diagnosis Assessment Notes Jun, COVID -19 (ICD- 10 - U07.1 ) COVID PCR test performed in office today. Advised patient that test was positive. Influenza A/B/RSV PCR test negative. Instructed patient to isolate per CDC guidelines for 5 days from symptom onset, mask 5 days following. May return to work/activities outside home after isolation period as long as symptoms are improving and has been afebrile for 24 hours without use of antipyretic. Advised patient that treatment of COVID is with viral supportive care, OTC cold medications as directed such as Cordicidin HBP, OTC Flonase, Tylenol/Motrin as needed for body aches/fever. Increase fluids and rest. Encouraged use of cool mist humidifier. Follow-up with PCP to advise of positive result and further management. Immediate eval for SOB, difficulty, worsening chest pain, fevers that do not break with antipyretic or any other concerning symptoms as reviewed on patient education handout. Patient verbalizes understanding and is agreeable to treatment plan. Patient left in stable condition [facility] Other 01-03-2024 History of Present illness Narrative* Evans Anderson PA-C - 06/28/2023 10:45 AM EST [facility] [address] [place] [address] Patient: Stacey Sahu Sex: female : 1975 Age: 48 y.o. PCP: ESSIE RYAN, [employer] SCHEDULER 06/28/2023 Stacey Sahu is here for a(n) post procedure follow up 05/26/23 Rt L 5,1 Nroot Inj w/50% relief continued . Chief Complaint Patient presents with Hip Pain HPI: Physical Therapy/HEP 03/2022 right hip with some relief 05/26/23 Rt L 5,1 Nroot Inj w/50% relief continued Hip Pain Incident onset: hip pain started in Apr 2021. There was no injury mechanism. The pain is present inthe right hip. The quality of the pain is described as aching, shooting and stabbing. Pain scale: 0/10 today, increases to 7/10 after ADLs. The patient is experiencing no pain. The pain has been Improving since onset. Associated symptoms include muscle weakness (RLE). Pertinent negatives include noinability to bear weight or loss of motion. She reports no foreign bodies present. The symptoms areaggravated by movement and weight bearing (standing, stairs, sitting). She has tried ice, rest, acetaminophen, heat and NSAIDs (no relief: tylenol, Voltaren gel, Icy hot, Lido patches min: NSAIDS, ice /heat, accupuncture, inj at [place] [facility] Mod relief: Narcotics Sign: Steroid inj by Ortho) for the symptoms. The treatment provided moderate relief. The effect of pain on patient's ADLS: Minimal Impairment. Past Medical History: Diagnosis Date Arthritis Bipolar disorder ([facility]) Chronic pain disorder Crohn's colitis ([facility]) Depression GERD (gastroesophageal reflux disease) H/O methicillin resistant Staphylococcus aureus infection Hyperlipidemia Joint pain Pleurisy Pulmonary hypertension ([facility]) Pulmonary hypertension ([facility]) Sleep apnea cpap Past Surgical History: Procedure Laterality Date COLON SURGERY part of bowel removed d/t crohns dx HYSTERECTOMY 2017 INJECTION SPINE TRANSFORAMINAL Right L 5,1 Nroot Right 05/26/2023 Performed by Pj Gannon MD at [facility] DEQUERVAINS CONTRACTURE Right 10/17/2018 Performed by Dereck Bagley DO at [facility] THYROIDECTOMY, PARTIAL Allergies Allergen Reactions Penicillins As a child Family History Problem Relation Age of Onset No Known Problems Mother No Known Problems Father No Known Problems Sister No Known Problems Brother No Known Problems Maternal Aunt No Known Problems Paternal Aunt No Known Problems Maternal Uncle No Known Problems Paternal Uncle No Known Problems Maternal Grandfather No Known Problems Maternal Grandmother No Known Problems Paternal Grandfather No Known Problems Paternal Grandmother No Known Problems Cousin ADD / ADHD Neg Hx Alcohol abuse Neg Hx Anxiety disorder Neg Hx Bipolar disorder Neg Hx Dementia Neg Hx Depression Neg Hx Drug abuse Neg Hx OCD Neg Hx Paranoid behavior Neg Hx Schizophrenia Neg Hx Seizures Neg Hx Self-Injurious Behavior Neg Hx Suicide Attempts Neg Hx Social History Socioeconomic History Marital status: Spouse name: Not on file Number of children: Not on file Years of education: Not on file Highest education level: Not on file Occupational History Not on file Tobacco Use Smoking status: Never Smokeless tobacco: Never Vaping Use Vaping Use: Never used Substance and Sexual Activity Alcohol use: No Drug use: No Sexual activity: Defer Other Topics Concern Not on file Social History Narrative Not on file Social Determinants of Health Financial Resource Strain: Not on file Food Insecurity: No Food Insecurity (06/28/2023) Hunger Screening Food Insecurity - Worry: Never True Food Insecurity - Inability: Never True Transportation Needs: Not on file Physical Activity: Not on file Stress: Not on file Social Connections: Not on file Interpersonal Safety: Not on file Review of Systems Constitutional: Negative for chills and fever. HENT: Negative. Eyes: Negative. Respiratory: Negative for cough and shortness of breath. Cardiovascular: Negative for chest pain. Gastrointestinal: Negative. Endocrine: Negative. Genitourinary: Negative. Musculoskeletal: Rt Hip Skin: Negative. Allergic/Immunologic: Negative. Neurological: Negative. Hematological: Negative. Psychiatric/Behavioral: Negative. Vital Signs: BP (!) 139/107 Pulse 93 Ht 149.9 cm (4' 11 ) Wt 87.1 kg (192 lb) SpO2 97% BMI 38.78 kg/m Physical Exam: GENERAL - Healthy patient that appears stated age. HEENT - Normocephalic / Atraumatic, Extraoccular movements intact, trachea midline, thyroid within normal limits. CV - pulse regular, Warm extremities with appropriate color of nailbeds. RESP - No obvious wheezing, No Shortness of Breath, No overexertion response to exam maneuvers. COORDINATION - remains intact. PSYCH - Alert and Oriented x4, Attentive and appropriate, constitutionally normal, displays normal mood and affect per situation, answered questions appropriately during examination, demonstrated appropriate attention during discussion, demonstrated appropriate cognitive reasoning and understandingof the medical condition by asking appropriate questions regarding the diagnosis and risks/benefits/alternatives of treatment modalities. No obvious deficits in memory, reasoning, or intellect. Lumbar: SKIN - No rashes or bruising in the area of the patient s pain. LYMPH NODES - demonstrate no obvious enlargement. EXTREMITIES - Lower extremities are warm, with minimal edema and palpable pulses. Tenderness to palpation noted in the lumbar spine and paraspinal musculature. Pain is elicited withflexion, extension, and lateral rotation of the lumbar spine. Range of motion is diminished with these motions due to pain. Facet palpation is noted to be painful and facet loading maneuvers elicit pain that is concordant with the patient s normal pain complaints. Some muscle spasm is noted in the overlying musculature. STRENGTH - noted to be 5 out of 5 all muscle groups bilateral lower extremities including muscles involving hip flexion and abduction, knee flexion and extension, as well as foot dorsiflexion and plantarflexion. No notable atrophy, fasciculations or spasm. SENSORY - No notable sensory deficits in the bilateral lower extremities to touch or pinprick in all dermatomal distributions. Straight Leg Raise is negative bilaterally. Gait is normal. Assessment/Treatment Plan: Stacey was seen today for hip pain. Diagnoses and all orders for this visit: Lumbar radiculopathy Monitor Follow up 2 months The medications prescribed have been reviewed for medication interactions/contraindications and/or for upcoming procedures: continue current medication regimen without any changes. DISCUSSION: Treatment options discussed with patient and all questions answered to patient's satisfaction. Discussed the rules and regulations surrounding prescription of opioids and compliance at length. Failure to follow the rules and regulation will result in tapering and discontinuation of medications if applicable. Prescribed medication that requires intensive monitoring for toxicity We do not currently prescribeany controlled substance from this practice. Treatment plans discussed but not opted for at this time: Repeat Lumbar medial branch block injections. Pain is under adequate control. It does appear that the patient benefited from the previous injection and the benefit has continuedthrough this visit. At this time, we will monitor the patient s symptoms from an interventional standpoint and consider another injection in the future if the patient s symptoms return or intensify severely. The patient was made aware that they should call if symptoms worsen or if their pain beginsto have a negative impact on their quality of life and activities of daily living again. The spine model was demonstrated and MRI was reviewed and used to explain the condition. Chronic conditions not treated during this visit that affected my overall medical decision making: Obesity OARRS: Reviewed. Scribe Statement: Scribed for and in the presence of EVANS ANDERSON PA-C by Essie Dutton CNA. Provider Statement: I, EVANS ANDERSON PA-C, personally performed the services described in the documentation, as scribed by Essie Dutton CNA in my presence, and it is both accurate and complete. Essie Dutton CNA 06/28/23 1208 Evans Anderson PA-C 06/28/23 1229 documented in [facility] Hospital Discharge instructions Patient Education 05/29/2023 15:17:27 Kidney Stones, Lhye-lh-Ukpb Kidney Stones Kidney stones are rock-like masses that form inside of the kidneys. Kidneys are organs that make pee (urine). A kidney stone may move into other parts of the urinary tract, including: The tubes that connect the kidneys to the bladder (ureters). The bladder. The tube that carries urine out of the body (urethra). Kidney stones can cause very bad pain and can block the flow of pee. The stone usually leaves your body (passes) through your pee. You may need to have a doctor take out the stone. What are the causes? Kidney stones may be caused by: A condition in which certain glands make too much parathyroid hormone (primary hyperparathyroidism). A buildup of a type of crystals in the bladder made of a chemical called uric acid. The body makes uric acid when you eat certain foods. Narrowing (stricture) of one or both of the ureters. A kidney blockage that you were born with. Past surgery on the kidney or the ureters, such as gastric bypass surgery. What increases the risk? You are more likely to develop this condition if: You have had a kidney stone in the past. You have a family history of kidney stones. You do not drink enough water. You eat a diet that is high in protein, salt (sodium), or sugar. You are overweight or very overweight (obese). What are the signs or symptoms? Symptoms of a kidney stone may include: Pain in the side of the belly, right below the ribs (flank pain). Pain usually spreads (radiates) to the groin. Needing to pee often or right away (urgently). Pain when going pee (urinating). Blood in your pee (hematuria). Feeling like you may vomit (nauseous). Vomiting. Fever and chills. How is this treated? Treatment depends on the size, location, and makeup of the kidney stones. The stones will often pass out of the body through peeing. You may need to: Drink more fluid to help pass the stone. In some cases, you may be given fluids through an IV tube put into one of your veins at the hospital. Take medicine for pain. Make changes in your diet to help keep kidney stones from coming back. Sometimes, medical procedures are needed to remove a kidney stone. This may involve: A procedure to break up kidney stones using a beam of light (laser) or shock waves. Surgery to remove the kidney stones. Follow these instructions at home: Medicines Take futo-nme-qvpbqnl and prescription medicines only as told by your doctor. Ask your doctor if the medicine prescribed to you requires you to avoid driving or using heavy machinery. Eating and drinking Drink enough fluid to keep your pee pale yellow. You may be told to drink at least 8 10 glasses of water each day. This will help you pass the stone. If told by your doctor, change your diet. This may include: ?Limiting how much salt you eat. ?Eating more fruits and vegetables. ?Limiting how much meat, poultry, fish, and eggs you eat. Follow instructions from your doctor about eating or drinking restrictions. General instructions Collect pee samples as told by your doctor. You may need to collect a pee sample: ?24 hours after a stone comes out. ?8 12 weeks after a stone comes out, and every 6 12 months after that. Strain your pee every time you pee (urinate), for as long as told. Use the strainer that your doctor recommends. Do not throw out the stone. Keep it so that it can be tested by your doctor. Keep all follow-up visits as told by your doctor. This is important. You may need follow-up tests. How is this prevented? To prevent another kidney stone: Drink enough fluid to keep your pee pale yellow. This is the best way to prevent kidney stones. Eat healthy foods. Avoid certain foods as told by your doctor. You may be told to eat less protein. Stay at a healthy weight. Where to find more information National Kidney Foundation (NKF): www.kidney.org [facility] [employer] [facility] (UCF): www.urologyhealth.org Contact a doctor if: You have pain that gets worse or does not get better with medicine. Get help right away if: You have a fever or chills. You get very bad pain. You get new pain in your belly (abdomen). You pass out (faint). You cannot pee. Summary Kidney stones are rock-like masses that form inside of the kidneys. Kidney stones can cause very bad pain and can block the flow of pee. The stones will often pass out of the body through peeing. Drink enough fluid to keep your pee pale yellow. This information is not intended to replace advice given to you by your health care provider. Make sure you discuss any questions you have with your health care provider. Document Revised: 02/14/2022 Document Reviewed: 02/14/2022 [employer] Patient Education 2022 [email or web address]. Follow Up Care 11/08/2022 13:29:10 With:JOSE FELIX, Jose Palafox, URL Address: [facility] [address] [place] [address]- [phone] When: Unknown Comments:4 mos w/ metabolic w/u [facility] 05-16-2023 NoteNew patient here to re-establish care. Needs cleared for thyroid surgery with Dr. Caceres. Was last seen by Dr. Blackwood in 2018 for pulmonary hypertension. Denies chest pain and SOB. Does feel palpitations 3-4 times a day. Review of Systems Cardiovascular: Positive for palpitations. All other systems reviewed and are negative.[facility] 11-08-2022 NoteCardiovascular Medicine [facility] SUBJECTIVE Chief Complaint Patient presents with Re-establish care Pulmonary Hypertension HPI Stacey Sahu is a 47 y.o. female here to re-establish care and for cardiac risk stratification. She has some occasional palpitations that feel like fluttering, lasts for a few minutes and resolve on their own. Occurs about 3-4 times a day. She denies c/p CP, dyspnea, orthopnea, PND, LE edema, dizziness/LH, syncope. She had an episode when she was sleeping where she felt short of breath. She has resumed using her CPAP since then. She has a hx of pulmonary HTN. She stopped taking Letairis as she wanted to see how she would do without it. She reports no change in her sx's since stopping it a couple years ago. Diet: no specific diet modifications Exercise: none Tobacco: denies ETOH: denies Recreational drug use: denies Fup ; hx PH on Letairis tx doing well. (remote use of Adipex 2011) Preserved LVEF - RVSP 27mmHg Normal cors (LHF 03/2012) Exercise stress 2014- no ischemia NIRMALA ; using Cpap 4.5 hr night Allergies Allergen Reactions Penicillins Other and Unknown As a child Patient Active Problem List Diagnosis Bipolar depression (CMS/HCC) Bipolar disease, chronic (CMS/HCC) Bipolar disorder, curr episode mixed, severe, with psychotic features (CMS/HCC) Chronic GERD GERD (gastroesophageal reflux disease) Crohn's disease of intestine (CMS/HCC) Crohn's disease of small and large intestines (CMS/HCC) Crohn's disease without complication (CMS/HCC) Disorder of lung Dyspnea Enterolith of small intestine (CMS/HCC) Chest pain Flank pain Gross hematuria Obese NIRMALA (obstructive sleep apnea) Other hyperlipidemia PAH (pulmonary artery hypertension) (CMS/HCC) Pleurisy Pulmonary HTN (CMS/HCC) (spontaneous vaginal delivery) Past Medical History: Diagnosis Date Pulmonary hypertension (CMS/HCC) Sleep apnea Past Surgical History: Procedure Laterality Date CARDIAC CATHETERIZATION HYSTERECTOMY Family History Problem Relation Name Age of Onset Coronary artery disease Father Social History Tobacco Use Smoking status: Never Smokeless tobacco: Never Substance Use Topics Alcohol use: Not Currently ROS Cardiovascular: Positive for palpitations. All other systems reviewed and are negative. OBJECTIVE Visit Vitals BP 120/84 (BP Location: Right arm, Patient Position: Sitting) Pulse 83 Ht 1.524 m (5') Wt 87.5 kg (193 lb) SpO2 98% BMI 37.69 kg/m??? Smoking Status Never BSA 1.92 m??? Medications: Current Outpatient Medications: omeprazole (PriLOSEC) [address] capsule, Take 40 mg by mouth in the morning., Disp: , Rfl: Physical Exam Vitals reviewed. Constitutional: Appearance: Normal appearance. She is obese. HENT: Head: Normocephalic and atraumatic. Right Ear: External ear normal. Left Ear: External ear normal. Eyes: Extraocular Movements: Extraocular movements intact. Conjunctiva/sclera: Conjunctivae normal. Pupils: Pupils are equal, round, and reactive to light. Neck: Vascular: No carotid bruit. Cardiovascular: Rate and Rhythm: Normal rate and regular rhythm. Pulses: Normal pulses. Heart sounds: Normal heart sounds. Pulmonary: Effort: Pulmonary effort is normal. Breath sounds: Normal breath sounds. Abdominal: General: Bowel sounds are normal. Palpations: Abdomen is soft. Musculoskeletal: Cervical back: Neck supple. Right lower leg: No edema. Left lower leg: No edema. Skin: General: Skin is warm and dry. Neurological: General: No focal deficit present. Mental Status: She is alert and oriented to person, place, and time. Psychiatric: Mood and Affect: Mood normal. Behavior: Behavior normal. Thought Content: Thought content normal. Judgment: Judgment normal. Labs: 09/21/2022 CBC - unremarkable CMP - unremarkable Legacy Encounter on 05/01/2017 Component Date Value Ref Range Status Ventricular Rate 05/01/2017 90 BPM Final Atrial Rate 05/01/2017 90 BPM Final FL Interval 05/01/2017 122 ms Final QRS DURATION 05/01/2017 98 ms Final QT Interval 05/01/2017 374 ms Final QTC CALCULATION(BEZET) 05/01/2017 457 ms Final P [place] 05/01/2017 46 degrees Final R-[place] 05/01/2017 60 degrees Final T Wave [place] 05/01/2017 37 degrees Final Diagnosis 05/01/2017 Final Value:Normal sinus rhythm Nonspecific T wave abnormality Abnormal ECG When compared with ECG of 05/19/2015 Nonspecific T wave abnormality Anterolateral leads Confirmed by Andre NEGRETE, L.S. (2) on 05/02/2017 10:05:02 AM No results found for: EXTCMP, BMPR1A, CBCDIF, BNP, BNP, LASAP, RED Testing/Procedures: EKG (11/08/2022): sinus rhythm ECHO (2017) Global left ventricular systolic function is normal (Visually estimated EF 55%). No regional wall motion abnormality. Normal diastolic function. Normal right ventricular systolic function (more content not included)... [facility]02-09-2023 NoteCONSULTATION CONSULTATION DATE: 08/04/2022 HISTORY OF PRESENT ILLNESS: This is a 47-year-old female who returns to the clinic status post right hip injection completed on 07/19/2022. Patient state she had 50% relief for one day. During that day, she felt significantly less pain at work with ascending stairs, bending and walking. The following days, the patient feels her pain returned to baseline which is 4/10. She describes it as sharp and achy. In review of her hip x-ray, she does have a degenerative osteophyte along the superior margin of the acetabulum, which most likely is contributing to her pain symptomatology. She did see Sharona Jackman NP-C and she ordered a CT of the right hip to evaluate for possible tears. Medication currently includes diclofenac 75 mg b.i.d. Patient's REVIEW OF SYSTEMS / PAST MEDICAL HISTORY / ALLERGIES and IMAGES have been reviewed and noted on the chart. PHYSICAL EXAM: VITAL SIGNS: Blood pressure is 133/86. Heart rate is 94. She is 5' tall and weighs 88 kg. GENERAL IMPRESSION: Pleasant, appropriate, in no acute distress. FOCUSED EXAM - BACK: Range of motion is functional in lateral rotation and flexion/extension. Paravertebral muscles are non-spasmodic. Minimal spinal axial pain noted to the lower lumbar facets of L4, L5 bilaterally. No radiating pain below the knee. Elma's point non- tender. MUSCULOSKELETAL: Motor is 5/5 bilaterally. Patient walks unassisted with a steady gait. Right hip with adduction patient has reproduction of pain to the anterior portion of her hip. Range of motion is guarded in lateral rotation and adduction. No crepitus palpated. NEUROLOGICAL: Radicular sensory is intact. Negative polyneuropathy. DIAGNOSIS: Right hip pain, lower back pain. PLAN: I believe her pathology warrants increase inflammation due to the osteophyte. We will put her on a short course of oral prednisone and also give her tramadol 50 mg b.i.d. as needed for pain. Patient was asked to call the office upon obtaining her CAT scan and subsequent results. We will see her in the clinic to maintain her medications in three months, unless otherwise indicated.[id number] NotePROCEDURE: XR HIP RT 2 3V WO PELVIS HISTORY: Pain in right hip joint ; chronic right hip pain increasing in severity COMPARISON: XR hip right 07/09/2021, 11/17/2021 FINDINGS: BONES:Degenerative osteophyte along the superior margin of the acetabulum, unchanged. No significant joint space narrowing. No fracture, dislocation, articular surface irregularity. SOFT TISSUES:No visible soft tissue swelling. EFFUSION:None visible. OTHER: Negative. IMPRESSION: 1. No acute bone abnormality or appreciable change. 2. Chronic degenerative osteophyte along superior rim of acetabulum which may contribute to patient's symptoms. Electronically authenticated by: PREET RODRIGEZ Date: 2022-07-07 15:33[facility] [id number] NoteCONSULTATION CONSULTATION DATE: 07/07/2022 HISTORY OF PRESENT ILLNESS: This is a 47-year-old female who returns to the clinic for x-ray review and for right hip pain. She was last seen on 06/09/2022. At that appointment, she was placed on diclofenac 75 mg b.i.d. with food. Patient states it was somewhat helpful but her pain is still rated a 4-5/10. Activities such as sitting, standing, walking, side lying on her right side and lifting aggravate her pain. She uses Salonpas and Aspercreme, which she finds minimally helpful. She has completed physical therapy, approximately one year ago. The patient does share that she has been referred and shuffled around from different orthopedic offices and states she never had a right hip injection. She did have an x-ray completed on 07/06/2022, which shows no significant joint narrowing, but degenerative osteophyte on the acetabulum. The patient has had right hip bursa injections in the past, which were helpful, but declines any further injections as she has had multiple and wants to entertain that no further. She denies any vasomotor weakness. Patient's REVIEW OF SYSTEMS / PAST MEDICAL HISTORY / ALLERGIES and IMAGES have been reviewed and noted on the chart. PHYSICAL EXAM: VITAL SIGNS: Blood pressure 136/87, heart rate is 72. She is 5', weighs 89 kg. GENERAL IMPRESSION: Pleasant, appropriate, in no acute distress. FOCUSED EXAM - MUSCULOSKELETAL: Her motor is 5/5 bilaterally. She walks unassisted with good muscle tone to quadriceps and hamstrings. Hip exam reveals intact range of motion to adduction, abduction and lateral raises. Point compression along the right hip and acetabular joint reproduces a positive jump response. Right hip bursa non-tender and non-edematous to palpation. BACK: Bilateral paravertebral muscles are non-spasmodic. No spinal axial pain is reproduced upon compression of the lumbar facets. NEUROLOGICALLY: Radicular sensory is intact. Negative polyneuropathy. +2 patellar and Achilles reflexes bilaterally. DIAGNOSIS: Right hip pain. PLAN: I did review the x-ray with the patient. We will move forward with the right hip steroid and Marcaine injection, which the patient does agree to. She is to continue with her diclofenac 75 mg b.i.d. with food. Patient will be followed up in the office post procedure, and she agrees to move forward.[facility] [id number] NoteCONSULTATION CONSULTATION DATE: 06/09/2022 HISTORY OF PRESENT ILLNESS: This is a 46-year-old female who returns to the clinic for follow up status post right trochanteric bursa injection that was completed on 03/29/2022 that afforded her 80% relief for six weeks. The patient has been to multiple orthopedic doctors in the past and was finally referred to pain management. X-ray revealed she has a right superior acetabulum osteophyte. I believe that this could be reproducing her pain with movement. She is unable to side lie comfortably and walking, evening hours and standing aggravate her pain. Currently, she takes 200 mg of ibuprofen a day, magnesium and Prilosec. She denies any vasomotor weakness. Patient's REVIEW OF SYSTEMS / PAST MEDICAL HISTORY / ALLERGIES and IMAGES have been reviewed and noted in the chart. PHYSICAL EXAM: VITAL SIGNS: Blood pressure is 159/82. Heart rate is 86. Temperature is 97.7. She is 5' tall, weighs 194 pounds. GENERAL APPEARANCE: Pleasant, appropriate, no acute distress. FOCUSED EXAM - MUSCULOSKELETAL: Patient's motor is 5/5 bilaterally. Range of motion is intact to right lower extremity in adduction, abduction and lateral raises. Lateral raise is painful. No crepitus noted. Posterior deep compression of the joint reproduces the patient's pain. NEUROLOGICALLY: Patient is cognitively intact. Negative polyneuropathy. Patellar and Achilles reflexes are +2. DIAGNOSIS: Right hip pain, right hip osteoarthritis. PLAN: At this time, we will conservatively trial her with diclofenac 75 mg b.i. d. with food. I discussed her hip x-ray again as well as osteophyte finding. She does not present with right greater trochanteric bursa pain today, but I feel it is intra-articular. We will see the patient in two months' time and will re-evaluate with application of the diclofenac.[facility] 04-26-2022 Hospital Discharge instructions Patient Education 04/26/2022 12:17:57 Calorie Counting for Weight Loss Calorie Counting for Weight Loss Calories are units of energy. Your body needs a certain amount of calories from food to keep you going throughout the day. When you eat more calories than your body needs, your body stores the extra calories as fat. When you eat fewer calories than your body needs, your body mayorga fat to get the energy it needs. Calorie counting means keeping track of how many calories you eat and drink each day. Calorie counting can be helpful if you need to lose weight. If you make sure to eat fewer calories than your bodyneeds, you should lose weight. Ask your health care provider what a healthy weight is for you. For calorie counting to work, you will need to eat the right number of calories in a day in order to lose a healthy amount of weight per week. A dietitian can help you determine how many calories youneed in a day and will give you suggestions on how to reach your calorie goal. A healthy amount of weight to lose per week is usually 1 2 lb (0.5 0.9 kg). This usually means thatyour daily calorie intake should be reduced by 500 750 calories. Eating 1,200 1,500 calories per day can help most women lose weight. Eating 1,500 1,800 calories per day can help most men lose weight. What is my plan? My goal is to have calories per day. If I have this many calories per day, I should lose around pounds per week. What do I need to know about calorie counting? In order to meet your daily calorie goal, you will need to: Find out how many calories are in each food you would like to eat. Try to do this before you eat. Decide how much of the food you plan to eat. Write down what you ate and how many calories it had. Doing this is called keeping a food log. To successfully lose weight, it is important to balance calorie counting with a healthy lifestyle that includes regular activity. Aim for 150 minutes of moderate exercise (such as walking) or 75 minutes of vigorous exercise (such as running) each week. Where do I find calorie information? The number of calories in a food can be found on a Nutrition Facts label. If a food does not have aNutrition Facts label, try to look up the calories online or ask your dietitian for help. Remember that calories are listed per serving. If you choose to have more than one serving of a food, you will have to multiply the calories per serving by the amount of servings you plan to eat. Forexample, the label on a package of bread might say that a serving size is 1 slice and that there are 90 calories in a serving. If you eat 1 slice, you will have eaten 90 calories. If you eat 2 slices, you will have eaten 180 calories. How do I keep a food log? Immediately after each meal, record the following information in your food log: What you ate. Don't forget to include toppings, sauces, and other extras on the food. How much you ate. This can be measured in cups, ounces, or number of items. How many calories each food and drink had. The total number of calories in the meal. Keep your food log near you, such as in a small notebook in your pocket, or use a mobile avinash or website. Some programs will calculate calories for you and show you how many calories you have left forthe day to meet your goal. What are some calorie counting tips? Use your calories on foods and drinks that will fill you up and not leave you hungry: ?Some examples of foods that fill you up are nuts and nut butters, vegetables, lean proteins, and high-fiber foods like whole grains. High-fiber foods are foods with more than 5 g fiber per serving. ?Drinks such as sodas, specialty coffee drinks, alcohol, and juices have a lot of calories, yet do not fill you up. Eat nutritious foods and avoid empty calories. Empty calories are calories you get from foods or beverages that do not have many vitamins or protein, such as candy, sweets, and soda. It is better to have a nutritious high-calorie food (such as an avocado) than a food with few nutrients (such as a bag of chips). Know how many calories are in the foods you eat most often. This will help you calculate calorie counts faster. Pay attention to calories in drinks. Low-calorie drinks include water and unsweetened drinks. Pay attention to nutrition labels for low fat or fat free foods. These foods sometimes have thesame amount of calories or more calories than the full fat versions. They also often have added sugar, starch, or salt, to make up for flavor that was removed with the fat. Find a way of tracking calories that works for you. Get creative. Try different apps or programs ifwriting down calories does not work for you. What are some portion control tips? Know how many calories are in a serving. This will help you know how many servings of a certain food you can have. Use a measuring cup to measure serving sizes. You could also try weighing out portions on a kitchenscale. With time, you will be able to estimate serving sizes for some foods. Take some time to put servings of different foods on your favorite plates, bowls, and cups so you know what a serving looks like. Try not to eat straight from a bag or box. Doing this can lead to overeating. Put the amount you would like to eat in a cup or on a plate to make sure you are eating the right portion. Use smaller plates, glasses, and bowls to prevent overeating. Try not to multitask (for example, watch TV or use your computer) while eating. If it is time to eat, sit down at a table and enjoy your food. This will help you to know when you are full. It will also help you to be aware of what you are eating and how much you are eating. What are tips for following this plan? Reading food labels Check the calorie count compared to the serving size. The serving size may be smaller than what youare used to eating. Check the source of the calories. Make sure the food you are eating is high in vitamins and proteinand low in saturated and trans fats. Shopping Read nutrition labels while you shop. This will help you make healthy decisions before you decide to purchase your food. Make a grocery list and stick to it. Cooking Try to cook your favorite foods in a healthier way. For example, try baking instead of frying. Use low-fat dairy products. Meal planning Use more fruits and vegetables. Half of your plate should be fruits and vegetables. Include lean proteins like poultry and fish. How do I count calories when eating out? Ask for smaller portion sizes. Consider sharing an entree and sides instead of getting your own entree. If you get your own entree, eat only half. Ask for a box at the beginning of your meal and put the rest of your entree in it so you are not tempted to eat it. If calories are listed on the menu, choose the lower calorie options. Choose dishes that include vegetables, fruits, whole grains, low-fat dairy products, and lean protein. Choose items that are boiled, broiled, grilled, or steamed. Stay away from items that are buttered,battered, fried, or served with cream sauce. Items labeled crispy are usually fried, unless stated otherwise. Choose water, low-fat milk, unsweetened iced tea, or other drinks without added sugar. If you want an alcoholic beverage, choose a lower calorie option such as a glass of wine or light beer. Ask for dressings, sauces, and syrups on the side. These are usually high in calories, so you should limit the amount you eat. If you want a salad, choose a garden salad and ask for grilled meats. Avoid extra toppings like johnson, cheese, or fried items. Ask for the dressing on the side, or ask for olive oil and vinegar or lemon to use as dressing. Estimate how many servings of a food you are given. For example, a serving of cooked rice is cup orabout the size of half a baseball. Knowing serving sizes will help you be aware of how much food you are eating at restaurants. The list below tells you how big or small some common portion sizes arebased on everyday objects: ?1 oz 4 stacked dice. ?3 oz 1 deck of cards. ?1 tsp 1 . ?1 Tbsp a ping-pong ball. ?2 Tbsp 1 ping-pong ball. ? cup baseball. ?1 cup 1 baseball. Summary Calorie counting means keeping track of how many calories you eat and drink each day. If you eat fewer calories than your body needs, you should lose weight. A healthy amount of weight to lose per week is usually 1 2 lb (0.5 0.9 kg). This usually means reducing your daily calorie intake by 500 750 calories. The number of calories in a food can be found on a Nutrition Facts label. If a food does not have aNutrition Facts label, try to look up the calories online or ask your dietitian for help. Use your calories on foods and drinks that will fill you up, and not on foods and drinks that will leave you hungry. Use smaller plates, glasses, and bowls to prevent overeating. This information is not intended to replace advice given to you by your health care provider. Make sure you discuss any questions you have with your health care provider. Document Released: 06/12/2006 Document Revised: 03/01/2019 Document Reviewed: 05/12/2017 [employer] Patient Education 2020 [email or web address]. 04/26/2022 12:17:47 Hematuria, Adult Hematuria, Adult Hematuria is blood in the urine. Blood may be visible in the urine, or it may be identified with a test. This condition can be caused by infections of the bladder, urethra, kidney, or prostate. Otherpossible causes include: Kidney stones. Cancer of the urinary tract. Too much calcium in the urine. Conditions that are passed from parent to child (inherited conditions). Exercise that requires a lot of energy. Infections can usually be treated with medicine, and a kidney stone usually will pass through your urine. If neither of these is the cause of your hematuria, more tests may be needed to identify the cause of your symptoms. It is very important to tell your health care provider about any blood in your urine, even if it ispainless or the blood stops without treatment. Blood in the urine, when it happens and then stops and then happens again, can be a symptom of a very serious condition, including cancer. There is no pain in the initial stages of many urinary cancers. Follow these instructions at home: Medicines Take pbhi-ild-uqeuznq and prescription medicines only as told by your health care provider. If you were prescribed an antibiotic medicine, take it as told by your health care provider. Do notstop taking the antibiotic even if you start to feel better. Eating and drinking Drink enough fluid to keep your urine clear or pale yellow. It is recommended that you drink 3 4 quarts (2.8 3.8 L) a day. If you have been diagnosed with an infection, it is recommended that you drink cranberry juice in addition to large amounts of water. Avoid caffeine, tea, and carbonated beverages. These tend to irritate the bladder. Avoid alcohol because it may irritate the prostate (men). General instructions If you have been diagnosed with a kidney stone, follow your health care provider's instructions about straining your urine to catch the stone. Empty your bladder often. Avoid holding urine for long periods of time. If you are female: ?After a bowel movement, wipe from front to back and use each piece of toilet paper only once. ?Empty your bladder before and after sex. Pay attention to any changes in your symptoms. Tell your health care provider about any changes or any new symptoms. It is your responsibility to get your test results. Ask your health care provider, or the department performing the test, when your results will be ready. Keep all follow-up visits as told by your health care provider. This is important. Contact a health care provider if: You develop back pain. You have a fever. You have nausea or vomiting. Your symptoms do not improve after 3 days. Your symptoms get worse. Get help right away if: You develop severe vomiting and are unable take medicine without vomiting. You develop severe pain in your back or abdomen even though you are taking medicine. You pass a large amount of blood in your urine. You pass blood clots in your urine. You feel very weak or like you might faint. You faint. Summary Hematuria is blood in the urine. It has many possible causes. It is very important that you tell your health care provider about any blood in your urine, even ifit is painless or the blood stops without treatment. Take ckci-ibt-etipylc and prescription medicines only as told by your health care provider. Drink enough fluid to keep your urine clear or pale yellow. This information is not intended to replace advice given to you by your health care provider. Make sure you discuss any questions you have with your health care provider. Document Released: 06/12/2006 Document Revised: 11/06/2019 Document Reviewed: 07/15/2017 [employer]el Patient Education 2019 [email or web address]. Follow Up Care 04/22/2022 08:39:58 With:JOSE FELIX, Jose Palafox, URL Address: [address] [place] [address] [place] [address]- [phone] When:Within 6 Month(s) Comments:6 mo fu with KUB [facility] 10-04-2022 NoteCONSULTATION PROCEDURE DATE: 03/29/2022 PREOPERATIVE DIAGNOSIS: Right trochanteric bursitis. POSTOPERATIVE DIAGNOSIS: Right trochanteric bursitis. PROCEDURE: Right trochanteric bursa injection. Subsequent to obtaining informed consent, the patient was placed in the prone position. Alcohol prep was used to sterilize the site. A 25 gauge needle was advanced and it comes to rest along the right trochanteric bursa. Negative aspiration. Marcaine 0.125% and Kenalog 40 mg are injected to the site. Negative heme. The patient tolerates the procedure well, without any overt complication. Will be followed up in the office.[id number] NoteCONSULTATION CONSULTATION DATE: 03/22/2022 CHIEF COMPLAINT: Right hip/leg pain. HISTORY OF PRESENT ILLNESS: This is a very pleasant, 46-year-old female who was referred to us by Essie Ryan. The patient has had right thigh pain on the lateral aspect. The patient has been seen by two separate orthopedist without any help. The patient reports the pain as a 2/10, a sharp, at times contraction type pain. It gets up to a 10/10. Sitting too long aggravates the pain, as does transitioning. Laying on her right hand side aggravates the patient's pain, as done her grandson laying on her lab. Walking activities, ADLs aggravate the pain. The patient takes Motrin on a p.r.n. basis. The patient completed physical therapy in June for four weeks. The patient's PAST MEDICAL HISTORY / SURGICAL HISTORY / REVIEW OF SYSTEMS are noted on the chart, along with the MEDICATION LIST / ALLERGIES and a CT of the abdomen, which was reviewed in office today, where we were also able to see the patient's lumbar spine. PHYSICAL EXAM: Upon physical examination, this is a pleasant, cooperative female, who does not appear to be in any acute distress. VITAL SIGNS: Stable at 133/86, with a heart rate of 73. At a height of 5', the patient weighs 88 kg. FOCUSED EVALUATION: No overt paravertebral spasming is noted. EXTREMITIES: No pedal edema. MUSCULOSKELETAL: Intact in the lower extremities at 5/5 bilaterally. NEUROLOGICALLY: No radiculopathy is noted. Reflexes are intact. PSYCHIATRICALLY: Affect is appropriate. PALPATORY EVALUATION: The patient has tenderness and fullness along the right trochanteric bursa consistent with right trochanteric bursitis. Currently, the pain etiology does not appear to be having a radicular component. I believe a significant portion of it is in the trochanter. There was no hypoesthesia along the lateral femoral cutaneous nerve. IMPRESSION: Current working diagnosis on the patient, right trochanteric bursitis. PLAN: The patient will apply a heat rub to the affected area. The patient will also add magnesium glycinate. The patient will be authorized for a right trochanteric bursa injection from insurance. The patient will follow up subsequent to that. CC: Essie Ryan [facility]09-13-2022 Hospital Discharge instructions Patient Education 03/08/2022 08:47:22 EU - Cystoscopy Discharge Instructions (CUSTOM) Cystoscopy Voiding after the procedure: there may be some pain, burning, urgency, frequency and blood tinged urine following the procedure. These symptoms usually resolve within 2-5 days. Drink the amount of fluid it takes to keep the urine pink to yellow or clear in color. Drinking enough water and fluids will help to ease any discomfort after your procedure. If you are having problems that seem out of the ordinary, please call. If unable to contact your physician and you feel it is an emergency, go to the nearest emergency room or call 911 Diet you may resume your normal diet. Activity you may resume your normal activities Call if you have a fever over 100 degrees. Follow Up Care 03/01/2022 08:53:56 With:Jose GARCIA Address: [facility] [address] , [place] [address]- Business (1) When: Unknown Comments:Office will call to schedule follow up [facility]08-29-2022 NoteHNO ID: [id number] Author: Shiraz Bo, DO Service: ? Author Type: Physician Type: Progress Notes Filed: 03/13/2022 1:15 PM Note Text: [facility] [place] [facility] [place] [facility] - Medical Spine Initial Exam SUBJECTIVE HISTORY OF PRESENT ILLNESS: Stacey Sahu is a 46 year old female who presents with a chief complaint of low back and leg pain and is seen in consultation requested by Dr. Breezy Muñoz for an opinion regarding above complaints. My final recommendations will be communicated back to the requesting physician by way of shared medical record or letter via US mail. Patient reports right lateral thigh pain from hip to knee for about 1 year, without inciting event. Also has chronic low back pain for years across bilateral low back. Right thigh pain is worse than low back. Does not extend below the knee. No pain on the left thigh. Denies numbness/tingling. Denies weakness. Denies bowel/bladder incontinence or saddle anesthesia, except for dribbling occasionally with sneezing, but has had 4 kids. The pain in right thigh is currently 4.5/10, but can get to 10/10 at night. The pain in low back is 3/10, can get to 5.5/10 with prolonged standing. PAIN EVALUATION No data found in the last 1 encounters. Pain Radiation: As above Aggravating Factors: Right thigh - Worse at night, Lying on right side Low back - prolonged standing Alleviating Factors: none Pain Ratio: right thigh worse than low back Current Treatment: Medications Tylenol ES or Naproxen, 2 pills - will use one or the other BID Therapies none Prior Treatment: Medications NSAIDs - Naproxen, Ibuprofen 800 mg - no relief Muscle relaxants - made her too sleepy - no relief Voltaren gel - no benefit Therapies PT at [facility] in [place] in June 2021 - 2 times per week for 1 month, exercises, TENS, ice - no relief Ice/heat Prior spine/MSK interventions: -12/31/21 Dr. Muñoz: R GTB CSI - minimal relief for 1 day. -06/2021 Possibly a R GTB CSI at a [facility] facility by [employer]IDE - 45% relief for 2 days Prior spine surgery: Denies Previously treated by: -Ortho Dr. Muñoz, last 01/17/22, refer to Spine. 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: No Workers' Compensation: No YELLOW AND BLUE FLAGS No-Neg Attitude; Back Pain is Disabling No-Avoiding Activity (for Fear of Pain) YES-Depression or Anxiety Disorders No-Social Problems No-Substance Use Disorder No-Job Dissatisfaction No-Financial Disincentives Patient Entered Questionnaires Spine Questions 02/14/2022 Pain Location: Leg Pain Duration: 6 months - 1 year Pain over last 6 months: Every day or nearly every day in the past 6 months Symptoms from neck/cervical spine: Yes Employment Status: Working now Involved in law suit/legal claim: No Spine Red Flags 02/14/2022 Any type of cancer: No Unexplained fever: No Bowel or bladder disfunction: No Unintentional weight loss: No Osteoporosis: No Neck Questionnaires 02/14/2022 Benzel Modified SANTI Score Incomplete PROMIS Score Percentiles Physical Health 02/14/2022 Physical Function Percentile 66 Sleep Percentile 27* Fatigue Percentile 18* Pain Interference Percentile 12 PROMIS SOCIAL ROLE SCORE 02/14/2022 Social Role Satisfaction Percentile 31 PROMIS Global Health Scale 02/14/2022 Physical Health Percentile 10 Mental Health Percentile 13 Percentiles provide an indication of how the patient's score ranks in relation to the general population. Higher percentile rankings indicate better function/quality of life. 50th percentile is the average of the general population and indicates half of respondents had a worse score. Depression Screening: PHQ-9 02/14/2022 Score 10 PHQ-9 Self Harm 02/14/2022 Question 9 Not at all PHQ-9 Self-Harm (Item 9) response options: 0 Not at all 1 Several days 2 More than half the days 3 Nearly every day PHQ-9 Levels: 0-4 No - mild depression 5-9 Mild depression 10-14 Moderate depression 15-19 Moderately severe depression 20-27 Severe depression ACTIVE PROBLEM LIST (spontaneous vaginal delivery) x 4 Crohn's disease without complication (HCC) [id number] Pulmonary Htn (Hcc) Obese Nirmala (Obstructive Sleep Apnea) Gerd (Gastroesophageal Reflux Disease) Crohn's Disease of Intestine (Hcc) Enterolith of Small Intestine (Hcc) Bipolar Disease, Chronic (Hcc) Other Hyperlipidemia PAST MEDICAL HISTORY Diagnosis Date Abnormal uterine bleeding s/p hysterectomy Bipolar disorder (HCC) Crohn's disease of intestine (HCC) s/p surgery GERD (gastroesophageal reflux disease) Obes (more content not included)...[facility]08-29-2022 History of Present illness Narrative* Shiraz Bo, DO - 02/21/2022 12:46 PM EDT Images from the original note were not included. [facility] [place] [facility] [place] [facility] - Medical Spine Initial Exam SUBJECTIVE HISTORY OF PRESENT ILLNESS: Stacey Sahu is a 46 year old female who presents with a chief complaint of low back and leg pain and is seen in consultation requested by Dr. Breezy Muñoz for an opinion regarding above complaints. My final recommendations will be communicated back to the requesting physician by way of shared medical record or letter via US mail. Patient reports right lateral thigh pain from hip to knee for about 1 year, without inciting event. Also has chronic low back pain for years across bilateral low back. Right thigh pain is worse than low back. Does not extend below the knee. No pain on the left thigh. Denies numbness/tingling. Denies weakness. Denies bowel/bladder incontinence or saddle anesthesia, except for dribbling occasionally with sneezing, but has had 4 kids. The pain in right thigh is currently 4.5/10, but can get to 10/10 at night. The pain in low back is 3/10, can get to 5.5/10 with prolonged standing. PAIN EVALUATION No data found in the last 1 encounters. Pain Radiation: As above Aggravating Factors: Right thigh - Worse at night, Lying on right side Low back - prolonged standing Alleviating Factors: none Pain Ratio: right thigh worse than low back Current Treatment: Medications Tylenol ES or Naproxen, 2 pills - will use one or the other BID Therapies none Prior Treatment: Medications NSAIDs - Naproxen, Ibuprofen 800 mg - no relief Muscle relaxants - made her too sleepy - no relief Voltaren gel - no benefit Therapies PT at [facility] in [place] in June 2021 - 2 times per week for 1 month, exercises, TENS, ice - no relief Ice/heat Prior spine/MSK interventions: -12/31/21 Dr. Muñoz: R GTB CSI - minimal relief for 1 day. -06/2021 Possibly a R GTB CSI at a [facility] facility by [employer] AIDE - 45% relief for 2 days Prior spine surgery: Denies Previously treated by: -Ortho Dr. Muñoz, last 01/17/22, refer to Spine. 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: No Workers' Compensation: No YELLOW & BLUE FLAGS No-Neg Attitude; Back Pain is Disabling No-Avoiding Activity (for Fear of Pain) YES-Depression or Anxiety Disorders No-Social Problems No-Substance Use Disorder No-Job Dissatisfaction No-Financial Disincentives Patient Entered Questionnaires Spine Questions 02/14/2022 Pain Location: Leg Pain Duration: 6 months - 1 year Pain over last 6 months: Every day or nearly every day in the past 6 months Symptoms from neck/cervical spine: Yes Employment Status: Working now Involved in law suit/legal claim: No Spine Red Flags 02/14/2022 Any type of cancer: No Unexplained fever: No Bowel or bladder disfunction: No Unintentional weight loss: No Osteoporosis: No Neck Questionnaires 02/14/2022 Benzel Modified SANTI Score Incomplete PROMIS Score Percentiles Physical Health 02/14/2022 Physical Function Percentile 66 Sleep Percentile 27* Fatigue Percentile 18* Pain Interference Percentile 12 PROMIS SOCIAL ROLE SCORE 02/14/2022 Social Role Satisfaction Percentile 31 PROMIS Global Health Scale 02/14/2022 Physical Health Percentile 10 Mental Health Percentile 13 Percentiles provide an indication of how the patient's score ranks in relation to the general population. Higher percentile rankings indicate better function/quality of life. 50th percentile is the average of the general population and indicates half of respondents had a worse score. Depression Screening: PHQ-9 02/14/2022 Score 10 PHQ-9 Self Harm 02/14/2022 Question 9 Not at all PHQ-9 Self-Harm (Item 9) response options: 0 Not at all 1 Several days 2 More than half the days 3 Nearly every day PHQ-9 Levels: 0-4 No - mild depression 5-9 Mild depression 10-14 Moderate depression 15-19 Moderately severe depression 20-27 Severe depression ACTIVE PROBLEM LIST (spontaneous vaginal delivery) x 4 Crohn's disease without complication (HCC) [id number] Pulmonary Htn (Hcc) Obese Nirmala (Obstructive Sleep Apnea) Gerd (Gastroesophageal Reflux Disease) Crohn's Disease of Intestine (Hcc) Enterolith of Small Intestine (Hcc) Bipolar Disease, Chronic (Hcc) Other Hyperlipidemia PAST MEDICAL HISTORY Diagnosis Date Abnormal uterine bleeding s/p hysterectomy Bipolar disorder (HCC) Crohn's disease of intestine (HCC) s/p surgery 1999' GERD (gastroesophageal reflux disease) Obese NIRMALA (obstructive sleep apnea) Pulmonary HTN (HCC) resolved 2017 PAST SURGICAL HISTORY Procedure Laterality Date COLONOSCOPY ENDOMETRIAL ABLTJ THERMAL W/O HYSTEROSCOPIC GUID 2012 HYSTERECTOMY 2017 LAPAROSCOPY COLECTOMY PARTIAL W/ANASTOMOSIS 2002 Ileocecectomy for Crohn's LAPAROSCOPY DIAGNOSTIC 06/2016 MIDLINE INSERTION/CONSULT 12/14/2020 TOTAL ABDOM HYSTERECTOMY ovaries intact TUBAL LIGATION HX 2002 Social History Tobacco Use Smoking status: Never Smokeless tobacco: Never Substance Use Topics Alcohol use: No Drug use: No FAMILY HISTORY Problem Relation Age of Onset Breast Cancer Mother Ischemic Heart Disease Father Diabetes Father Cancer Father esophageal, lung Hypertension Father No Known Problems Daughter No Known Problems Daughter No Known Problems Son No Known Problems Son ALLERGIES Allergen Reactions Penicillins Unknown CURRENT MEDICATIONS: Omeprazole 40 mg capsule Take 40 mg by mouth once daily. atorvastatin (LIPITOR) 20 mg tablet Take 20 mg by mouth once daily. carBAMazepine (TEGRETOL) 200 mg tablet Take 300 mg by mouth daily at bedtime. acetaminophen (TYLENOL) 325 mg tablet Take 2 tablets by mouth every 6 hours as needed. cetirizine (ZYRTEC) 10 mg tablet Take 10 mg by mouth once daily. citalopram (CELEXA) 20 mg tablet Take 20 mg by mouth once daily. REVIEW OF SYSTEMS: 14 systems reviewed and otherwise negative unless mentioned above. OBJECTIVE: PHYSICAL EXAM BP 138/85 Pulse 76 Wt 88.8 kg (195 lb 12.8 oz) BMI 38.24 kg/m GENERAL APPEARANCE: Well nourished, well developed, and no apparent distress. NEURO PSYCH: Patient oriented to person, place, and time. Mood pleasant. Benign affect. CARDIOVASCULAR: Palpable pulses. No edema noted. RESPIRATORY: non-labored breathing, no grunting/flaring/retractions SKIN: Head, neck, trunk, and extremities dry, intact and without lesions. MUSCULOSKELETAL VISUAL INSPECTION Posture: normal posture and alignment PALPATION: No tenderness to palpation lumbosacral spine SPINE ROM: LUMBAR ROM: WFL MUSCLE BULK: Normal and symmetrical in the upper & lower extremities. MUSCLE TONE: Normal. MOTOR: 5/5 bilateral LE hip flexion, knee flexion, knee extension, ankle dorsiflexion, plantarflexion, EHL. SENSORY: sensation intact to light touch BLE REFLEXES: 2+ bilateral patella, achilles, 1+ bilateral medial hamstring LONG TRACT SIGNS: No clonus GAIT: Non-antalgic. Able to stand on toes and heels. Able to perform tandem gait. PERIPHERAL JOINT ROM: HIP ROM: Full ROM Without Pain STRAIGHT LEG TEST: negative bilateral Hip: mild tenderness to palpation right greater trochanter, not over IT band, not on left. Right DUSTY/FADIR bother right lateral hip. SI joint: Left DUSTY, FADIR, thigh thrust cause mild LBP Lumbar facet loading: positive bilateral Data Review: All images/reports listed below were personally reviewed by me unless otherwise indicated. [facility] records independently reviewed Imaging and outside records independently reviewed 12/03/21 MRI right femur w/wo contrast, report: Signal changes suspicious for gluteus medius and minimus tendon injuries at the greater trochanter of the proximal femur. Possible mild trochanteric bursitis. Mild degenerative changes at the hip and knee. No bony signal abnormality. No soft tissue mass or abnormal enhancement. 11/17/21 XR right hip/femur, report: No fracture, dislocation or focal soft tissue abnormality seen. Minor SI joint and hip degeneration seen bilaterally. Lower lumbar hypertrophic facet changes identified. Pelvic vascular calcifications. Right lower quadrant surgical clips. Benign appearing overlying density right lower quadrant present. No bony lesions. No significant knee degeneration identified. 10/27/2021 MRI lumbar spine without contrast: Sagittal T2 image #8 extends from the T11 vertebral body superiorly to the S3 level inferiorly, forthe purposes of numbering. Paraspinal area: Normal with no visible mass. Bones: No fracture, pars defect or osseous lesion. Cord/cauda equina: Normal caliber, contour and signal intensity. T12-L1 through L2-L3: No significant disc/facet abnormality, spinal stenosis or foraminal stenosis. L3-4 and L4-5: Early degenerative disc disease is present without focal protrusion or neural impingement. L5-S1: No significant disc/facet abnormality, spinal stenosis or foraminal stenosis. 10/20/2021 XR lumbar spine: Bones: No fracture, spondylolisthesis, bone lesion. Mild degenerative facet arthropathy L5-S1. Disc spaces: No significant disc height narrowing, subluxation or endplate abnormality. Paraspinous: 3 adjacent to centimeter diaphragms projecting over the right lower quadrant on today's study and shown to be within the small bowel terminal ileum on 04/05/21 CT study of uncertain etiology, correlate with clinical history. Bowel sutures within the right lower quadrant. 07/09/2021 XR right hip: Bones: Prominent degenerative osteophyte along the superior acetabulum; chronic, may contribute to patient's symptoms. No significant joint space narrowing or articular surface irregularity. Soft tissue: No visible soft tissue swelling. Effusion: None visible. Other: Negative ASSESSMENT/PLAN DIAGNOSIS: M67.951 Tendinopathy of right gluteal region (primary encounter diagnosis) M70.61 Trochanteric bursitis of right hip M54.50, G89.29 Chronic bilateral low back pain without sciatica M47.816 Lumbar spondylosis ASSESSMENT: Stacey Sahu is a 46 year old female with PMH of Crohn's, Bipolar disorder, GERD, NIRMALA,pulmonary HTN, presenting with main complaint of right lateral thigh pain from hip to knee, but also has chronic bilateral low back pain. MRI lumbar spine is negative for any compromise of spinal nerves or canal/foramen. There is lower level facet hypertrophy on MRI. Exam is positive for facet loading. Suspect LBP is most likely lumbar spondylosis. Right lateral thigh pain is not coming from her lumbar spine. She has positive tenderness over right GTB and pain with DUSTY/FADIR. MRI right thigh reported suspected gluteus medius/minimus tendon injuries at the right GTB, which would fit with herpain. Patient not interested in lumbar spine PT, but will try chiropractic. Placed consult for Sports Medicine for her right lateral hip/thigh pain. PLAN: 1) Imaging/Diagnostic Studies: -Imaging reviewed as above. 2) Therapy/Rehabilitation: -Offered PT for lumbar spine, but patient defers. -Activities and exercise as tolerated. 3) Pharmacological Management: -Medication changes were not discussed. 4) Spine/MSK Interventions: -none 5) Consultations: -Consult Sports Medicine for right lateral hip/thigh pain. -Consult chiropractic for low back and hip/thigh. 6) Follow -up: -As needed. -Patient instructed to call/seek urgent medical care with worsening of symptoms or change of neurological status. 7) Future treatment considerations: -Could consider lumbar facet injections/blocks for LBP. SIGNATURE: Shiraz Bo DO PATIENT NAME: Stacey Sahu DATE: February 21, 2022 TIME: 12:46 PM documented [facility] NoteHNO ID: [id number] Author: Breezy Muñoz DO Service: ? Author Type: Physician Type: Progress Notes Filed: 01/17/2022 3:48 PM Note Text: SERVICE DATE: January 17, 2022 PCP: Essie Ryan, NIURKA, PRODUCTION PL[employer]NER SCHEDULER Patient was self-referred. Subjective Patient ID: Stacey is a 46 year old female. She returns here today with continued complaints of right trochanteric bursal pain along with sciatic symptoms and low back pain. She states the injection I placed in her trochanter 2 weeks ago gave her no relief unfortunately. She does have paresthesias that go down her right leg to the level of her right knee. Chief Complaint: Patient presents with: Right Hip - Follow Up PAIN EVALUATION 01/17/2022 1530 Pain Level: 8 Pain Location: Hip-Right Description: Sharp Duration Units: Unknown Frequency: Continuous Intervention/Comfort measure: Reposition;Relaxation;Positioning;Heat;Cold HPI TREATMENTS PRIOR TO INITIAL CONSULT: Right Corticosteroid Injection(s) Review of Systems ACTIVE PROBLEM LIST (spontaneous vaginal delivery) x 4 Crohn's disease without complication (HCC) [id number] Pulmonary Htn (Hcc) Obese Nirmala (Obstructive Sleep Apnea) Gerd (Gastroesophageal Reflux Disease) Crohn's Disease of Intestine (Hcc) Enterolith of Small Intestine (Hcc) Bipolar Disease, Chronic (Hcc) Other Hyperlipidemia PAST MEDICAL HISTORY Diagnosis Date - Abnormal uterine bleeding s/p hysterectomy - Bipolar disorder (HCC) - Crohn's disease of intestine (HCC) s/p surgery s - GERD (gastroesophageal reflux disease) - Obese - NIRMALA (obstructive sleep apnea) - Pulmonary HTN (HCC) resolved 2016 PAST SURGICAL HISTORY Procedure Laterality Date - COLONOSCOPY - HYSTERECTOMY 2017 - LAPAROSCOPIC HEMICOLECTOMY 2001 Ileocecectomy for Crohn's - LAPAROSCOPY DIAGNOSTIC 06/2016 - MIDLINE INSERTION/CONSULT 12/14/2020 - THERMAL ENDOMETRIAL ABLATION 2011 - TOTAL ABDOM HYSTERECTOMY ovaries intact - TUBAL LIGATION HX 2002 FAMILY HISTORY Problem Relation Age of Onset - Breast Cancer Mother - Ischemic Heart Disease Father - Diabetes Father - Cancer Father esophageal, lung - Hypertension Father - No Known Problems Daughter - No Known Problems Daughter - No Known Problems Son - No Known Problems Son Social History Tobacco Use - Smoking status: Never Smoker - Smokeless tobacco: Never Used Substance Use Topics - Alcohol use: No - Drug use: No ALLERGIES Allergen Reactions - Penicillins Unknown MEDICATIONS: atorvastatin (LIPITOR) 20 mg tablet Take 20 mg by mouth once daily. carBAMazepine (TEGRETOL) 200 mg tablet Take 300 mg by mouth daily at bedtime. acetaminophen (TYLENOL) 325 mg tablet Take 2 tablets by mouth every 6 hours as needed. Omeprazole 40 mg capsule Take 40 mg by mouth once daily. cetirizine (ZYRTEC) 10 mg tablet Take 10 mg by mouth once daily. citalopram (CELEXA) 20 mg tablet Take 20 mg by mouth once daily. Allergies, medications, past surgical history, family history and past medical history were reviewed per this encounter. Objective Ortho Exam alert pleasant female oriented x3. She went skin does have tenderness over her right greater trochanter. She also has tenderness over her lower lumbar spine. Minimal tenderness is noted in her sciatic notch. No other tenderness is noted about her right hip. Neurovascular is otherwise intact into her right lower extremity with full range of motion of her hip knee and ankle. Assessment/Plan ASSESSMENT Diagnosis (M70.61) Trochanteric bursitis of right hip (primary encounter diagnosis) Plan: CONSULT TO [facility] (M51.27) Lumbago-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 Plan: [facility] Office Visit on 01/17/22 - [facility] PLAN I recommend she go to the medical spine clinic for further work-up and treatment of her sciatic symptoms. FOLLOW-UP: Return Medical spine clinic. I reviewed the information obtained and documented by the me. I examined the patient and evaluated all available films and pertinent documents. We discussed the case and I agree with the plans as outlined in this note. SIGNATURE: Breezy Muñoz DO PATIENT NAME: Stacey Sahu DATE: January 17, 2022 TIME: 3:46 [facility]07-25-2022 History of Present illness Narrative* Breezy Muñoz DO - 01/17/2022 3:42 PM EDT SERVICE DATE: January 17, 2022 PCP: Essie Ryan CNP, [employer]ODUCTION [employer]NER SCHEDULER Patient was self-referred. Subjective Patient ID: Stacey is a 46 year old female. She returns here today with continued complaints of right trochanteric bursal pain along with sciatic symptoms and low back pain. She states the injection I placed in her trochanter 2 weeks ago gave her no relief unfortunately. She does have paresthesias that go down her right leg to the level of her right knee. Chief Complaint: Patient presents with: Right Hip - Follow Up PAIN EVALUATION 01/17/2022 1530 Pain Level: 8 Pain Location: Hip-Right Description: Sharp Duration Units: Unknown Frequency: Continuous Intervention/Comfort measure: Reposition;Relaxation;Positioning;Heat;Cold HPI TREATMENTS PRIOR TO INITIAL CONSULT: Right Corticosteroid Injection(s) Review of Systems ACTIVE PROBLEM LIST (spontaneous vaginal delivery) x 4 Crohn's disease without complication (HCC) [id number] Pulmonary Htn (Hcc) Obese Nirmala (Obstructive Sleep Apnea) Gerd (Gastroesophageal Reflux Disease) Crohn's Disease of Intestine (Hcc) Enterolith of Small Intestine (Hcc) Bipolar Disease, Chronic (Hcc) Other Hyperlipidemia PAST MEDICAL HISTORY Diagnosis Date Abnormal uterine bleeding s/p hysterectomy Bipolar disorder (HCC) Crohn's disease of intestine (HCC) s/p surgery 1999's GERD (gastroesophageal reflux disease) Obese NIRMALA (obstructive sleep apnea) Pulmonary HTN (HCC) resolved 2016 PAST SURGICAL HISTORY Procedure Laterality Date COLONOSCOPY HYSTERECTOMY 2017 LAPAROSCOPIC HEMICOLECTOMY 2002 Ileocecectomy for Crohn's LAPAROSCOPY DIAGNOSTIC 06/2016 MIDLINE INSERTION/CONSULT 12/14/2020 THERMAL ENDOMETRIAL ABLATION 2011 TOTAL ABDOM HYSTERECTOMY ovaries intact TUBAL LIGATION HX 2002 FAMILY HISTORY Problem Relation Age of Onset Breast Cancer Mother Ischemic Heart Disease Father Diabetes Father Cancer Father esophageal, lung Hypertension Father No Known Problems Daughter No Known Problems Daughter No Known Problems Son No Known Problems Son Social History Tobacco Use Smoking status: Never Smoker Smokeless tobacco: Never Used Substance Use Topics Alcohol use: No Drug use: No ALLERGIES Allergen Reactions Penicillins Unknown MEDICATIONS: atorvastatin (LIPITOR) 20 mg tablet Take 20 mg by mouth once daily. carBAMazepine (TEGRETOL) 200 mg tablet Take 300 mg by mouth daily at bedtime. acetaminophen (TYLENOL) 325 mg tablet Take 2 tablets by mouth every 6 hours as needed. Omeprazole 40 mg capsule Take 40 mg by mouth once daily. cetirizine (ZYRTEC) 10 mg tablet Take 10 mg by mouth once daily. citalopram (CELEXA) 20 mg tablet Take 20 mg by mouth once daily. Allergies, medications, past surgical history, family history and past medical history were reviewed per this encounter. Objective Ortho Exam alert pleasant female oriented x3. She went skin does have tenderness over her right greater trochanter. She also has tenderness over her lower lumbar spine. Minimal tenderness is noted inher sciatic notch. No other tenderness is noted about her right hip. Neurovascular is otherwise intact into her right lower extremity with full range of motion of her hip knee and ankle. Assessment/Plan ASSESSMENT Diagnosis (M70.61) Trochanteric bursitis of right hip (primary encounter diagnosis) Plan: CONSULT TO [facility] (M51.27) Lumbago-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 Plan: [facility] Office Visit on 01/17/22 [facility] PLAN I recommend she go to the medical spine clinic for further work-up and treatment of her sciatic symptoms. FOLLOW-UP: Return Medical spine clinic. I reviewed the information obtained and documented by the me. I examined the patient and evaluated all available films and pertinent documents. We discussed the case and I agree with the plans as outlined in this note. SIGNATURE: Breezy Muñoz DO PATIENT NAME: Stacey Sahu DATE: January 17, 2022 TIME: 3:46 PM documented in this encounterReg[facility]-2022 NoteHNO ID: [id number] Author: Breezy Muñoz DO Service: ? Author Type: Physician Type: Progress Notes Filed: 12/31/2021 1:10 PM Note Text: SERVICE DATE: December 31, 2021 PCP: Essie Ryan CNP, [employer]ODUCTION [employer]NER SCHEDULER Patient was self-referred. Subjective Patient ID: Stacey is a 46 year old female. Here today with complaints of right greater trochanteric pain with some radiation down the lateral aspect of her right thigh to her knee. She has had back symptoms in the past but she states these have improved. She states this pain does not affect her walking activities. It does affect her sitting activities and she cannot sit on her right cheek. She denies any pain with cough or sneeze. She has taken some NSAIDs with little to no relief. She did have an injection sounded like a sacroiliac injection in the past. Chief Complaint: Patient presents with: Right Hip - New PAIN EVALUATION 12/31/2021 1253 Pain Level: 5 Pain Location: Hip-Right Description: Aching Duration Amount of Time: 7 Duration Units: Months Frequency: Continuous Intervention/Comfort measure: Medication HPI TREATMENTS PRIOR TO INITIAL CONSULT: Oral NSAIDS Review of Systems ACTIVE PROBLEM LIST (spontaneous vaginal delivery) x 4 Crohn's disease without complication (HCC) [id number] Pulmonary Htn (Hcc) Obese Nirmala (Obstructive Sleep Apnea) Gerd (Gastroesophageal Reflux Disease) Crohn's Disease of Intestine (Hcc) Enterolith of Small Intestine (Hcc) Bipolar Disease, Chronic (Hcc) Other Hyperlipidemia PAST MEDICAL HISTORY Diagnosis Date - Abnormal uterine bleeding s/p hysterectomy - Bipolar disorder (HCC) - Crohn's disease of intestine (HCC) s/p surgery - GERD (gastroesophageal reflux disease) - Obese - NIRMALA (obstructive sleep apnea) - Pulmonary HTN (HCC) resolved 2016 PAST SURGICAL HISTORY Procedure Laterality Date - COLONOSCOPY - HYSTERECTOMY 2017 - LAPAROSCOPIC HEMICOLECTOMY 2002 Ileocecectomy for Crohn's - LAPAROSCOPY DIAGNOSTIC 06/2016 - MIDLINE INSERTION/CONSULT 12/14/2020 - THERMAL ENDOMETRIAL ABLATION 2011 - TOTAL ABDOM HYSTERECTOMY ovaries intact - TUBAL LIGATION HX 2002 FAMILY HISTORY Problem Relation Age of Onset - Breast Cancer Mother - Ischemic Heart Disease Father - Diabetes Father - Cancer Father esophageal, lung - Hypertension Father - No Known Problems Daughter - No Known Problems Daughter - No Known Problems Son - No Known Problems Son Social History Tobacco Use - Smoking status: Never Smoker - Smokeless tobacco: Never Used Substance Use Topics - Alcohol use: No - Drug use: No ALLERGIES Allergen Reactions - Penicillins Unknown MEDICATIONS: atorvastatin (LIPITOR) 20 mg tablet Take 20 mg by mouth once daily. carBAMazepine (TEGRETOL) 200 mg tablet Take 300 mg by mouth daily at bedtime. acetaminophen (TYLENOL) 325 mg tablet Take 2 tablets by mouth every 6 hours as needed. Omeprazole 40 mg capsule Take 40 mg by mouth once daily. cetirizine (ZYRTEC) 10 mg tablet Take 10 mg by mouth once daily. citalopram (CELEXA) 20 mg tablet Take 20 mg by mouth once daily. Allergies, medications, past surgical history, family history and past medical history were reviewed per this encounter. Objective Ortho Exam alert pleasant female oriented x3. She does sit with a sciatic list off to the left. She has no tenderness to palpation of her lumbar spine or sciatic notch on the right. She is point tender over her right greater trochanter. Her bench test is negative. She has a full nonpainful range of motion of her right hip. She has a negative February Jose's. No other tenderness is noted about her hip and right lower extremity. Neurovascular is otherwise intact into her right lower extremity the full range of motion of her knee and ankle. Assessment/Plan ASSESSMENT Diagnosis (M70.61) Trochanteric bursitis of right hip (primary encounter diagnosis) No orders found for this visit on 12/31/21. PLAN I recommend injecting her right greater trochanter. UNIVERSAL PROTOCOL / SAFETY CHECKLIST Procedure to be Performed: Corticosteroid injection right greater trochanter Sign In: A Moment of CARE was completed. Personnel directly involved with the procedure wore the appropriate PPE (Personal Protective Equipment). Patient/Surrogate Stated/Verified: PATIENT VERIFIED(optional for EMERGENT procedures): Patient name, Date of , Relevant allergies and The intended procedure Time Out Communication: Intended patient and procedure match the source documents. Consent documented and matches the intended procedure. Sign Out: SIGN OUT (optional for EMERGENT procedures): Post-procedure follow-up management communicated and Plan of Care Visit completed when applicable. Large Joint Arthro/Inj: R greater trochanteric bursa Informed Consent Consent Obtained: Verbal [place] Protocol A moment to CARE was completed. (more content not included)...[facility]07-[facility] History of Present illness Narrative* Breezy Muñoz DO - 12/31/2021 12:54 PM EDT Associated Order(s): Large Joint Arthro/Inj: R greater trochanteric bursa Post-Procedure Diagnose(s): Trochanteric bursitis of right hip SERVICE DATE: December 31, 2021 PCP: Essie Ryan, NIURKA, PRODUCTION PLANNER SCHEDULER Patient was self-referred. Subjective Patient ID: Stacey is a 46 year old female. Here today with complaints of right greater trochanteric pain with some radiation down the lateral aspect of her right thigh to her knee. She has had back symptoms in the past but she states these have improved. She states this pain does not affect her walking activities. It does affect her sitting activities and she cannot sit on her right cheek. She denies any pain with cough or sneeze. She has taken some NSAIDs with little to no relief. She did have an injection sounded like a sacroiliac injection in the past. Chief Complaint: Patient presents with: Right Hip - New PAIN EVALUATION 12/31/2021 1253 Pain Level: 5 Pain Location: Hip-Right Description: Aching Duration Amount of Time: 7 Duration Units: Months Frequency: Continuous Intervention/Comfort measure: Medication HPI TREATMENTS PRIOR TO INITIAL CONSULT: Oral NSAIDS Review of Systems ACTIVE PROBLEM LIST (spontaneous vaginal delivery) x 4 Crohn's disease without complication (HCC) [id number] Pulmonary Htn (Hcc) Obese Nirmala (Obstructive Sleep Apnea) Gerd (Gastroesophageal Reflux Disease) Crohn's Disease of Intestine (Hcc) Enterolith of Small Intestine (Hcc) Bipolar Disease, Chronic (Hcc) Other Hyperlipidemia PAST MEDICAL HISTORY Diagnosis Date Abnormal uterine bleeding s/p hysterectomy Bipolar disorder (HCC) Crohn's disease of intestine (HCC) s/p surgery 1999's GERD (gastroesophageal reflux disease) Obese NIRMALA (obstructive sleep apnea) Pulmonary HTN (HCC) resolved 2016 PAST SURGICAL HISTORY Procedure Laterality Date COLONOSCOPY HYSTERECTOMY 2017 LAPAROSCOPIC HEMICOLECTOMY 2002 Ileocecectomy for Crohn's LAPAROSCOPY DIAGNOSTIC 06/2016 MIDLINE INSERTION/CONSULT 12/14/2020 THERMAL ENDOMETRIAL ABLATION 2012 TOTAL ABDOM HYSTERECTOMY ovaries intact TUBAL LIGATION HX 2002 FAMILY HISTORY Problem Relation Age of Onset Breast Cancer Mother Ischemic Heart Disease Father Diabetes Father Cancer Father esophageal, lung Hypertension Father No Known Problems Daughter No Known Problems Daughter No Known Problems Son No Known Problems Son Social History Tobacco Use Smoking status: Never Smoker Smokeless tobacco: Never Used Substance Use Topics Alcohol use: No Drug use: No ALLERGIES Allergen Reactions Penicillins Unknown MEDICATIONS: atorvastatin (LIPITOR) 20 mg tablet Take 20 mg by mouth once daily. carBAMazepine (TEGRETOL) 200 mg tablet Take 300 mg by mouth daily at bedtime. acetaminophen (TYLENOL) 325 mg tablet Take 2 tablets by mouth every 6 hours as needed. Omeprazole 40 mg capsule Take 40 mg by mouth once daily. cetirizine (ZYRTEC) 10 mg tablet Take 10 mg by mouth once daily. citalopram (CELEXA) 20 mg tablet Take 20 mg by mouth once daily. Allergies, medications, past surgical history, family history and past medical history were reviewed per this encounter. Objective Ortho Exam alert pleasant female oriented x3. She does sit with a sciatic list off to the left. Shehas no tenderness to palpation of her lumbar spine or sciatic notch on the right. She is point tender over her right greater trochanter. Her bench test is negative. She has a full nonpainful range ofmotion of her right hip. She has a negative February Jose's. No other tenderness is noted about her hip and right lower extremity. Neurovascular is otherwise intact into her right lower extremity the full range of motion of her knee and ankle. Assessment/Plan ASSESSMENT Diagnosis (M70.61) Trochanteric bursitis of right hip (primary encounter diagnosis) No orders found for this visit on 12/31/21. PLAN I recommend injecting her right greater trochanter. UNIVERSAL PROTOCOL / SAFETY CHECKLIST Procedure to be Performed: Corticosteroid injection right greater trochanter Sign In: A Moment of CARE was completed. Personnel directly involved with the procedure wore the appropriate PPE (Personal Protective Equipment). Patient/Surrogate Stated/Verified: PATIENT VERIFIED(optional for EMERGENT procedures): Patient name, Date of , Relevant allergies and The intended procedure Time Out Communication: Intended patient and procedure match the source documents. Consent documented and matches the intended procedure. Sign Out: SIGN OUT (optional for EMERGENT procedures): Post-procedure follow-up management communicated and Plan of Care Visit completed when applicable. Large Joint Arthro/Inj: R greater trochanteric bursa Informed Consent Consent Obtained: Verbal [place] Protocol A moment to CARE was completed. SIGN IN Patient/Surrogate Stated/Verified: Patient name, Date of , Relevant allergies and Intended procedure TIME OUT Intended patient and procedure match the source document(s). Medications required for procedure verified. 12/31/2021 1:09 PM The procedure site was prepped in the usual sterile fashion. Site: R greater trochanteric bursa Medications: 4 mg dexAMETHasone sodium phosphate 4 mg/mL Anesthetics: 5 mL bupivacaine (PF) 0.5 % (5 mg/mL) Outcome: Tolerated well, no immediate complications Post-injection instructions were reviewed with the patient and the patient voiced understanding of these instructions. SIGN OUT Post-procedure follow-up management communicated and Plan of Care Visit completed when applicable No images are attached to the encounter. SIGNATURE: Breezy Muñoz DO PATIENT NAME: Stacey Sahu DATE: December 31, 2021 TIME: 1:09 PM PAGER/CONTACT #: Breezy Muñoz DO FOLLOW-UP: Return if symptoms worsen or fail to improve. I reviewed the information obtained and documented by the me. I examined the patient and evaluated all available films and pertinent documents. We discussed the case and I agree with the plans as outlined in this note. SIGNATURE: Breezy Javy DO Kaylee PATIENT NAME: Stacey Sahu DATE: December 31, 2021 TIME: 1:05 PM documented in this encounterReg[facility] Evaluation note* Encounter Date Diagnosis Assessment Notes Treatment Notes Treatment Clinical Notes Nov, Trochanteric bursitis, right hip (ICD-10 - M70.61) Nov, Other Out a long discussion with the patient regarding her MRI findings and further treatment options. As we discussed there is increased signal on her MRI near the insertion of the gluteus medius and minimus tendons suggestive of tearing. There is also some increased signal suggestive of a greater trochanteric bursitis. I also explained to her that I did not appreciate any concerning findings into the thigh. She felt much better after this given the extensive family history of cancer. In regards to further treatment options I explained to her that this is been going on now for well over 6 months and she is not had any relief of any conservative treatment options. At this point I recommended that we get her in touch with a hip arthroscopist to see if she is a candidate for a possible hip scope for either gluteal tendon repair and/or greater trochanteric bursectomy. We will refer her to Dr. Christian with the [facility]. [facility] Other 05-25-2022 Evaluation note* Encounter Date Diagnosis Assessment Notes Treatment Notes Treatment Clinical Notes October, Right hip pain (ICD-10 - M25.551) October, Other On a long discu ssion with the patient regarding etiology of her symptoms. At this point I explained to her that I do not appreciate anything specifically on exam or on x-ray events concerning but the fact that she is had this pain now for over 6 months and conservative treatment has not provided her much relief at all, I would recommend getting an MRI to fully evaluate to make sure there is not something that were missing. We will get an MRI of the right femur with and without contrast and I will see her with those results. [facility] Other 06-21-2021 History of Past illness Narrative* Problem Noted Date Resolved Date Generalized abdominal pain 12/14/202012/16 documented as of this encounter (statuses as of 12/31/2021) [facility]06-21[facility]2021 History of Past illness Narrative* Problem Noted Date Resolved Date Generalized abdominal pain 12/14/202012/16 documented as of this encounter (statuses as of 01/17/2022) [facility]2021 History of Past illness Narrative* Problem Noted Date Resolved Date Generalized abdominal pain 12/14/202012/16 documented as of this encounter (statuses as of 03/13/2022) [facility] No data available for this section [facility] Future Appointments Appointment Date:10/24/2022 11:30:00 AM Scheduled Provider:Jose GARCIA MD Location:[facility] Appointment Type:URO Office Visit [facility] Jose Angel Evaluation + Plan note Future Appointments Appointment Date:05/29/2023 02:30:00 PM Scheduled Provider:[facility]O Office Visit Future Scheduled Tests Laboratory* Calprotectin, Fecal 11/24/22 * CBC w/ Auto Diff 11/24/22 * Comprehensive Metabolic Panel 11/24/22 * C-Reactive Protein 11/24/22 Radiology* CT Abdomen/Pelvis w/contrast (enterography) 11/24/22 [facility] Evaluation + Plan note Future Appointments Appointment Date:05/29/2023 02:30:00 PM Scheduled Provider:Jose GARCIA MD Location:[facility] Appointment Type:URO Office Visit Future Scheduled Tests Laboratory* Calprotectin, Fecal 11/24/22 * CBC w/ Auto Diff 11/24/22 * Comprehensive Metabolic Panel 11/24/22 * C-Reactive Protein 11/24/22 [facility] Future Appointments Appointment Date:02/02/2023 01:00:00 PM Scheduled Provider:Ignacia KHAN MD Location:[facility] Type:[facility] Follow Up Appointment Date:05/29/2023 02:30:00 PM Scheduled Provider:Jose GARCIA MD Location:[facility] Appointment Type:URO Office Visit Future Scheduled Tests Laboratory* Calprotectin, Fecal 11/24/22 [facility] Future Appointments Appointment Date:05/29/2023 02:30:00 PM Scheduled Provider:Jose GARCIA MD Location:[facility] Appointment Type:URO Office Visit Diagnostic Tests Pending * Calprotectin, Fecal 02/02/23 [facility] Future Appointments Appointment Date:10/02/2023 03:00:00 PM Scheduled Provider:Jose GARCIA MD Location: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 [facility] Tendinopathy of right gluteal region- Primary Trochanteric bursitis of right hip Enthesopathy of hip region Chronic bilateral low back pain without sciatica Lumbar spondylosis Lumbosacral spondylosis without myelopathy documented in this [facility] Diagnosis Lumbar radiculopathy- Primary Thoracic or lumbosacral neuritis or radiculitis, unspecified [facility] this [facility] N[facility]ative - Reported* Type Description Date Medical History acid reflux Surgical History biopsy of intestines Surgical History hysterectomy [facility] Other Hospital Discharge instructions No data available for this section [facility] InstructionsNot on filedocumented in this encounter [facility] No data available for this section [facility] Summary Purpose Family History No Family History Records FoundNo Family History Records FoundNo Family History Records FoundNo Family History Records FoundNo Family History Records Found No data available for this section No Family History Records FoundNo Family History Records FoundNo Family History Records Found Advance Directives No Advanced Directives Records FoundDocuments on File Type Date Recorded 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 Advance Directive(s) 12/12/2020 8:14 PM Documents on File Type Date Recorded 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 Advance Directive(s) 12/12/2020 8:14 PM Reason for Referral Specialty Diagnoses / Procedures Referred By Wan gamboa Referred To Contact Diagnoses Trochanteric bursitis of right hip Tendinopathy of right gluteal region Chronic bilateral low back pain without sciatica Lumbar spondylosis Procedures CONSULT TO CHIROPRACTOR OFFICE/OUTPATIENT [facility] 60-74 MINUTES Shiraz Bo DO [address] [place] [address] Referral ID Status Reason Start Date Expiration Date Visits Requested Visits Authorized [id number] Pending Review PCP Requested Referral 02/21/2022 02/21/2023 1 1 Specialty Diagnoses / Procedures Referred By Wan gamboa Referred To Contact Sports Medicine Diagnoses Trochanteric bursitis of right hip Tendinopathy of right gluteal region Procedures CONSULT TO SPORTS MEDICINE OFFICE/OUTPATIENT [facility] 60-74 MINUTES Shiraz Bo DO [address] [place] [address] Referral ID Status Reason Start Date Expiration Date Visits Requested Visits Authorized [id number] Authorized PCP Requested Referral 02/21/2022 02/21/2023 1 1 Specialty Diagnoses / Procedures Referred By Contac t Referred To Contact [facility] Diagnoses Trochanteric bursitis of right hip Lumbago-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 Procedures CONSULT TO [facility] OFFICE/OUTPATIENT [facility] 60-74 MINUTES Breezy Muñoz, [facility] [address] [place] [address] Referral ID Status Reason Start Date Expiration Date Visits Requested Visits Authorized [id number] Authorized PCP Requested Referral 01/17/2022 01/17/2023 1 1 Reason evaluate and treat. Gluteal tendon tear vs greater trochanteric bursitis Please refer to Bang Christian MD, Orthopaedic Surgery, [facility] Diagnosis 1 Trochanteric bursiti s, right hip (M70.61) Referral Organization [facility] Referring Provider First Name Alexis Referring Provider Last Name Dany ARDON Referring Provider Specialty Orthopedic Surgery Referred Organization [facility] Referred Address [address] [place], [place],[address] Referred Provider Specialty ORTHOPEDIC S URGEON Referral Priority Routine Medications Administered Section Inactive Administered Medications - up to 3 most recent administrations Medication Order MAR Action Action Date Dose Rate Site bupivacaine (PF) 0.5 % (5 mg/mL) 5 mL injection 5 mL, Injection - FOR ORTHO USE ONLY, ONE TIME INJECTION, 1 dose, Starting on Mon12/31/21 at 1309, Until Mon12/31/21 at 1309 Given 12/31/2021 1:09 PM EDT 5 mL dexAMETHasone sodium phosphate 4 mg injection (DECADRON) 4 mg, Injection - FOR ORTHO USE ONLY, ONE TIME INJECTION, 1 dose, Starting on Mon12/31/21 at 1309, Until Mon12/31/21 at 1309 Given 12/31/2021 1:09 PM EDT 4 mg Additional Source Comments INFORMATION SOURCE (unrecogn ized section and content) DATE CREATED AUTHOR 12/19/2017 [facility] DATE CREATED AUTHOR AUTHOR'S ORGANIZ ATION 12/08/2021 [facility] DATE CREATED AUTHOR AUTHOR'S ORGANIZ ATION 03/26/2022 [facility] DATE CREATED AUTHOR AUTHOR'S ORGANIZ ATION 12/04/2022 [facility] DATE CREATED AUTHOR AUTHOR'S ORGANIZ ATION 12/04/2022 [facility] DATE CREATED AUTHOR AUTHOR'S ORGANIZ ATION 05/31/2023 [facility] DATE CREATED AUTHOR AUTHOR'S ORGANIZ ATION 07/02/2023 [facility] DATE CREATED AUTHOR AUTHOR'S ORGANIZ ATION 07/16/2023 [facility] dical Specialists EPIC REASON FOR VISIT (unrecogniz ed section and content) Reason Comments New Specialty Diagnoses / Procedures Referred By Contac t Referred To Contact Orthopedics / ORTHOPAEDIC SURGERY Diagnoses Greater Trochanteric Bursitis right hip vs Gluteal Tendon tear *OUTSIDE IMG PT TO BRING Procedures LANA NEW NO XRAY Alexis Saenz II, MD [address] [place] [address] Breezy Muñoz DO [place] [employer] [address] [place] [address] Referral ID Status Reason Start Date Expiration Date Visits Requested Visits Authorized [id number] Authorized Financial Clearance Not Required 12/24/2021 01/23/2022 99 99 Reason Comments Follow Up Reason Comments New Patient Evaluation Lower back pain/R ight side sciatica Specialty Diagnoses / Procedures Referred By Contac t Referred To Contact [facility] Diagnoses Trochanteric bursitis of right hip Lumbago-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 Procedures CONSULT TO [facility] OFFICE/OUTPATIENT [facility] 60-74 MINUTES Breezy Muñoz DO [employer] [address] [place] [address] Referral ID Status Reason Start Date Expiration Date V isits Requested Visits Authorized [id number] Closed PCP Requested Referral 01/17/2022 01/17/2023 1 1 Reason Comments Hip Pain Source Comments (unrecognize d section and content) In the event this informatio n is protected by the Federal Confidentiality of Alcohol and Drug Abuse Patient Records regulations: The Federal rules restrict any use of the information to criminally investigate or prosecute any alcohol or drug abuse patient.[facility] the event this information is protected by the Federal Confidentiality of Alcohol and Drug Abuse Patient Records regulations: The Federal rules restrict any use of the information to criminally investigate or prosecute any alcohol or drug abuse patient.[facility] the event this information is protected by the Federal Confidentiality of Alcohol and Drug Abuse Patient Records regulations: The Federal rules restrict any use of the information to criminally investigate or prosecute any alcohol or drug abuse patient.[facility] Care Teams (unrecognized sec tion and content) Status Controller Relationship Specialty Start Date End Date Essie Ryan [facility] PCP - General Family Practice 07/22/16 Adán Torres Obstetrics 07/22/16 Alexis Saenz II, MD [address] [place] [address] Referring Orthopedics 12/13/21 Status Controller Relationship Specialty Start Date End Date Essie Ryan, [employer]ODUCTION PL[employer]NER SCHEDULER PCP - General Family Practice 07/22/16 Adán Torres, DO Obstetrics 07/22/16 Alexis Saenz II, MD [address] [place] [address] Referring Orthopedics 12/13/21 Status Controller Relationship Specialty Start Date End Date Essie Ryan [employer]ODUCTION PL[employer]NER SCHEDULER PCP - General Family Practice 07/22/16 Adán Torres, DO Obstetrics 07/22/16 Alexis Saenz II, MD [address] [place] [address] Referring Orthopedics 12/13/21 Status Controller Relationship Specialty Start Date End Date Essie Ryan [employer]PRODUCTION PLANNER SCHEDULER [address] [place] [address] PCP - General Nurse Practitioner 10/03/18 FOR RECORDS PERTAINING TO PATIENTS WHO ARE OR HAVE BEEN ENROLLED IN A CHEMICAL DEPENDENCY/SUBSTANCEABUSE PROGRAM, SOME INFORMATION MAY BE OMITTED. This clinical summary was aggregated from multiple sources. Caution should be exercised in using it in the provision of clinical care. This summary normalizes information from multiple sources, and as a consequence, information in this document may materially change the coding, format and clinical context of patient data. In addition, data may be omitted in some cases. CLINICAL DECISIONS SHOULD BE BASED ON THE PRIMARY CLINICAL RECORDS. [employer] [facility]. provides no warranty or guarantee of the accuracy or completeness of information in this document.
[2023-07-25 17:35] LABS: Calcium 8.7 mg/dL (8.5-10.1); Carbon Dioxide 28.4 mmol/L (21.0-32.0); Chloride 107 mmol/L (98-107); Estimated GFR (African America >60 (>=60); Estimated GFR (Non-African Ame >60 (>=60); Phosphorus 3.4 mg/dL (2.6-4.7); Sodium 142 mmol/L (136-145); Uric Acid 3.8 mg/dL (2.6-6.0)
[2023-07-25 17:56] LABS: Calcium Urine Random 18.4 mg/dL (5.1-21.0); Creatinine Urine Random 106.89 mg/dL (20.00-300.00); Sodium Urine Random 128 mmol/L (30-90)
[2023-07-25 17:57] LABS: Calcium 24 Hour Urine 174.8 mg/24hr (100.0-300.0); Sodium 24 Hour Urine 122 mmol/24h (40-220); Total Volume 24 Hour Urine 950 mL/24hr
[2023-07-27 10:09] LABS: Uric Acid, Urine 51.6 mg/dL (Not Estab.); Uric Acid,Urine 24hr 490.2 mg/24 hr (173.7-902.1)
[2023-07-27 11:09] LABS: Magnesium, U 8.5 mg/dL (Not Estab.); Magnesium,Urine 24hr 80.8 mg/24 hr (12.0-293.0); Phosphorus, Urine 96.4 mg/dL (Not Estab.); Phosphorus,Urine 24h 916 mg/24 hr (261-1078)
[2023-07-27 12:08] LABS: PTH, Intact 42 pg/mL (15-65)
[2023-07-28 15:10] LABS: Citric Acid, U, 24hr 512 mg/24 hr (320-1240); Citric Acid, Urine 539 mg/L (Undefined)
[2023-07-31 16:09] LABS: Oxalates, Urine 24 mg/L (Undefined); Oxalates, Urine 24hr 23 mg/24 hr (4-31)
== END 2023-07-25 16:33 | disposition home or self-care (01) ==
PROVIDERS: PCP Nurse Practitioner; Visit Provider Urology
DX: N20.0 Calculus of kidney (principal)
CPT/HCPCS: 36415; 81050; 82310; 82340; 82374; 82435; 82507; 82565; 82570; 83735; 83945; 83970; 84100; 84105; 84295; 84300; 84520; 84550; 84560

== ENCOUNTER 2023-08-16 07:23 | Outpatient (OUT) | payer OTHER, SELFPAY ==
--- OUTSIDE RECORDS SUMMARY | 2023-08-16 07:26 | XMS_ITS | CCD ---
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 Name Role Phone PHYSICIAN, DEFAULT Unavailable Unavailable PHYSICIAN, DEFAULT Unavailable Unavailable AICHHOLZ, ESSIE Unavailable Unavailable PHYSICIAN, DEFAULT Unavailable Unavailable PHYSICIAN, DEFAULT Unavailable Unavailable AICHHOLZ, ESSIE Unavailable Unavailable PHYSICIAN, DEFAULT Unavailable Unavailable PHYSICIAN, DEFAULT Unavailable Unavailable AICHHOLZ, ESSIE Unavailable Unavailable Alexis Saenz II Unavailable [phone] Essie Ryan CNP Primary Care Provider Adán Torres Unavailable [phone] Dany ARDON MD, Robert M Unavailable Adán Torres DO Unavailable ESSIE RYAN Primary Care Physician AicEssie ha CNP Primary Care Provider Adán Torres DO Unavailable Dany ARDON MD, Robert M Unavailable ESSIE RYAN Primary Care Unavailable SHIRAZ BO Attending Unavailable BREEZY MUÑOZ Referring Unavailable ESSIE RYAN Primary Care Unavailable BREEZY MUÑOZ Attending Unavailable BREEZY MUÑOZ Attending Unavailable ESSIE RYAN Primary Care Unavailable CAN VALERA Attending Unavailable CAN VALERA Consulting Unavailable NIURKA RYAN ESSIE Primary Care Unavailable CAN VALERA Admitting Unavailable DR MARKO PERRY Admitting Unavailable ANDREW López, DR MARKO Stafford Attending Unavailable AICHHOLZ, NUCLEAR WASTE PROCESS OPERATOR ESSIE Primary Care Unavailable DELANEY ., ARTURO Consulting Unavailable MORALES ., DR MARKO Stafford Attending Unavailable MORALES ., DR MARKO Stafford Consulting Unavailable AICHHOLZ, NUCLEAR WASTE PROCESS OPERATOR ESSIE Primary Care Unavailable MORALES ., DR MARKO Stafford Admitting Unavailable APLING, SHARONA B Attending Unavailable APLING, SHARONA B Consulting Unavailable APLING, SHARONA B Admitting Unavailable AICHHOLZ, NUCLEAR WASTE PROCESS OPERATOR ESSIE Primary Care Unavailable PAULETTE PHIPPS Unavailable AICHHOLZ, NUCLEAR WASTE PROCESS OPERATOR ESSIE Primary Care Unavailable GARCIA ., DR BAILEY Attending Unavailable GARCIA ., DR BAILEY Consulting Unavailable GARCIA ., DR BAILEY Admitting Unavailable WEST, DR PAULETTE León Consulting Unavailable MORALES ., DR MARKO Stafford Admitting Unavailable MORALES ., DR MARKO Stafford Attending Unavailable MORALES ., DR MARKO Stafford Consulting Unavailable AICHHOLZ, NUCLEAR WASTE PROCESS OPERATOR ESSIE Primary Care Unavailable DELANEY ., ARTURO Consulting Unavailable MORALES ., DR MARKO Stafford Admitting Unavailable MORALES ., DR MARKO Stafford Attending Unavailable AICHHOLZ, NUCLEAR WASTE PROCESS OPERATOR ESSIE Primary Care Unavailable YOBANY ., DR RASMUSSEN Attending Unavailable AICHHOLZ, NUCLEAR WASTE PROCESS OPERATOR ESSIE Primary Care Unavailable YOBANY ., DR RASMUSSEN Admitting Unavailable WEST, DR PAULETTE León Consulting Unavailable YOBANY ., DR RASMUSSEN Consulting Unavailable AICHHOLZ, NUCLEAR WASTE PROCESS OPERATOR ESSIE Primary Care Unavailable GARCIA ., DR BAILEY Admitting Unavailable GARCIA ., DR BAILEY Attending Unavailable GARCIA ., DR BAILEY Consulting Unavailable ZIEBER, DR PREET Palafox Consulting Unavailable TIMMIS, DR RED Attending Unavailable TIMMIS, DR RED Consulting Unavailable TIMMIS, DR RED Admitting Unavailable AICHHOLZ, NUCLEAR WASTE PROCESS OPERATOR ESSIE Primary Care Unavailable ZIEBER, DR PREET Palafox Consulting Unavailable TIMMIS, DR ERD Attending Unavailable TIMMIS, DR RED Consulting Unavailable TIMMIS, DR RED Admitting Unavailable AICHHOLZ, NUCLEAR WASTE PROCESS OPERATOR ESSIE Primary Care Unavailable ZIEBER, DR PREET Palafox Consulting Unavailable TIMMIS, DR RED Attending Unavailable TIMMIS, DR RED Consulting Unavailable AICHHOLZ, NUCLEAR WASTE PROCESS OPERATOR ESSIE Primary Care Unavailable TIMMIS, DR RED Admitting Unavailable WEST, DR PAULETTE León Consulting Unavailable AICHHOLZ, NUCLEAR WASTE PROCESS OPERATOR ESSIE Primary Care Unavailable GARCIA ., DR BAILEY Attending Unavailable GARCIA ., DR BAILEY Consulting Unavailable GARCIA ., DR BAILEY Admitting Unavailable ZIEBER, DR PREET Palafox Consulting Unavailable LAKSHMIPATHY ., NARENDRANATH Attending Marleni vailable AICHHOLZ, NUCLEAR WASTE PROCESS OPERATOR ESSIE Primary Care Unavailable LAKSHMIPATHY ., NARANTONIO Admitting Marleni vailable MORALES ., DR MARKO Stafford Admitting Unavailable MORALES ., DR MARKO Stafford Attending Unavailable MORALES ., DR MARKO Stafford Consulting Unavailable AICHHOLZ, NUCLEAR WASTE PROCESS OPERATOR ESSIE Primary Care Unavailable DELANEY ., ARTURO Consulting Unavailable AICHHOLZ, NUCLEAR WASTE PROCESS OPERATOR ESSIE Primary Care Unavailable WEST, DR PAULETTE León Consulting Unavailable GARCIA ., DR BAILEY Attending Unavailable GARCIA ., DR BAILEY Admitting Unavailable AICHHOLZ, NUCLEAR WASTE PROCESS OPERATOR ESSIE Consulting Unavailable YOBANY ., DR RASMUSSEN Attending Unavailable YOBANY ., DR RASMUSSEN Consulting Unavailable AICHHOLZ, NUCLEAR WASTE PROCESS OPERATOR ESSIE Primary Care Unavailable YOBANY ., DR RASMUSSEN Admitting Unavailable AICHHOLZ, NUCLEAR WASTE PROCESS OPERATOR ESSIE Primary Care Unavailable AICHHOLZ, NUCLEAR WASTE PROCESS OPERATOR ESSIE Attending Unavailable AICHHOLZ, NUCLEAR WASTE PROCESS OPERATOR ESSIE Consulting Unavailable AICHHOLZ, NUCLEAR WASTE PROCESS OPERATOR ESSIE Admitting Unavailable DELANEY ., ARTURO Admitting Unavailable DELANEY ., ARTURO Attending Unavailable AICHHOLZ, NUCLEAR WASTE PROCESS OPERATOR ESSIE Primary Care Unavailable ZIEBER, DR PREET Palafox Consulting Unavailable DELANEY ., ARTURO Consulting Unavailable TIMMIS, DR RED Attending Unavailable TIMMIS, DR RED Consulting Unavailable TIMMIS, DR RED Admitting Unavailable AICHHOLZ, NUCLEAR WASTE PROCESS OPERATOR ESSIE Primary Care Unavailable ZIEBER, DR PREET Palafox Consulting Unavailable DIAB ., EDNA Attending Unavailable DIAB ., EDNA Admitting Unavailable MARKER ., DR JIMÉNEZ Consulting Unavailable AICHHOLZ, NUCLEAR WASTE PROCESS OPERATOR ESSEI Primary Care Unavailable DIAB ., EDNA Consulting Unavailable OWOYELE, MISTY Consulting Unavailable AICHHOLZ, NUCLEAR WASTE PROCESS OPERATOR ESSIE Primary Care Unavailable AICHHOLZ, NUCLEAR WASTE PROCESS OPERATOR ESSIE Attending Unavailable AICHHOLZ, NUCLEAR WASTE PROCESS OPERATOR ESSIE Consulting Unavailable AICHHOLZ, NUCLEAR WASTE PROCESS OPERATOR ESSIE Admitting Unavailable RAIN, DR PREET Palafox Consulting Unavailable MORALES ., DR MARKO Stafford Attending Unavailable MORALES ., DR MARKO Stafford Admitting Unavailable AICHHOLZ, NUCLEAR WASTE PROCESS OPERATOR ESSIE Primary Care Unavailable [facility] [place] MCCARTHY Referring Unavailable GARCIA ., DR BAILEY Consulting Unavailable MORALES ., DR MARKO Stafford Consulting Unavailable CAN VALERA Attending Unavailable Aichholz DIRECTOR [facility] WASTE PROCESS OPERATOR, Essie Magdaleno Primary Care Provider EVANS ANDERSON Attending Unavailable ESSIE RYAN Referring Unavailable ESSIE RYAN Primary Care Unavailable Umair Juliana Unavailable ESSIE RYAN Attending Unavailable TIMMISNEDA Attending Unavailable AICHHOLKamila, ESSIE Attending Unavailable SALAM, Beth Referring Unavailable SALAM, Beth Admitting Unavailable SALAM, Beth Attending Unavailable SALAM, Beth Admitting Unavailable SALAM, Beth Attending Unavailable SALAM, Beth Admitting Unavailable SALAM, Beth Attending Unavailable SALAM, Beth Admitting Unavailable SALAM, Beth Attending Unavailable SALAM, Beth Attending Unavailable FAWSHAIKH GONZALEZ Referring Unavailable SALAM, Ignacia Attending Unavailable SALAM, Beth Attending Unavailable SALAM, Beth Referring Unavailable Jose GARCIA Attending Unavailable LESLIE JUNG Attending Unavailable Jose GARCIA Attending Unavailable Allergies Allergy Classification Reported Allergen(s) Allergy Type Date of Onset Reaction(s) Facility (5 sources) Penicillins; Translations: [PENICILLINS] Drug allergy (disorder) 09-21-2011 [facility] Repository (3 sources) Penicillin V Drug Allergy Fever [facility] [employer] Other (4 sources) Penicillins Drug Allergy 07-27-2016 [facility] sources) History of - penicillin allergy (context-depende nt category); Translations: [H/O: penicillin allergy] Drug allergy [facility] (1 source) Penicillin Drug Allergy Fever [facility] [employer] Other Medications Current Medications Medication Drug Class(es) [...] by mouth once daily. polyethylene glycol 3350 134606 mg / potassium chloride 1480 mg / sodium bicarbonate 5720 mg / sodium chloride 07134 mg powder for oral solution (3 sources) Osmotic Laxative Start: 11-28-2022 [facility] [place] oral powder for reconstitution See Instructions, 1 EA, Refill(s) 0, See physician instructions prior to procedure., [facility] #[id number], 155, cm, 11/24/22 13:47:00 EDT, Height/Length Dosing, [...] procedure, # 2 tab(s), Refills(s) 0, Pharmacy: [facility] #[id number], 155, cm, 03/03/22 15:04:00 EDT, Height/Length Dosing, [...] Name Value Interpretation Reference Range Facil ity [facility] Report[facility] 08-01-2023 Lab Reports [id number]#1.00TIFF [facility] Report[facility] 07-31-2023 Lab Reports [id number]#1.00TIFF Normal [facility] Lab Reportson 07-28-2023 Lab Reports [id number]#1.00TIFF [facility] Lab Reports [id number]#1.00TIFF [facility] Report[facility] 07-26-2023 Lab Reports [id number]#1.00TIFF [facility] COVID/FLU/RSV RT-PCRon 07-11 SARS-CoV-2 (COVID-19) RNA IZAIAH+probe Ql (Unsp spec) Positive [employer] Other COVID/FLU/RSV RT-PCR Negative [employer] Other Ambulatory Visit Summaryon 1 07-30-2022 Ambulatory Visit Summary STACEY SAHU :1975 Visit Date:05/29/2023 Ambulatory Visit Instructions Your Diagnosis Kidney stones Gross hematuria Tests Performed Urnls Dip Stick Auto w/o Microscopy POC 24183 Your Care Team Attending Physician - Jose GARCIA MD Primary Care Physician - ESSIE RYAN [...] Following Appointments Follow Up with JOSE FELIX, Jose Palafox, NORMA When: Comments: 4 mos w/ metabolic w/u Where: [facility] [address] , [place] [address] [id number] Medications What How Much When Instructions Unchanged [...] Urnls Dip Stick Auto w/o Microscopy POC 69673 (05/29/2023) Bilirubin Urine Dipstick - Negative Blood Urine Dipstick - 3+ Large Glucose Urine Dipstick - Negative Ketones Urine Dipstick - Negative Leukocytes Urine Dipstick - Negative Nitrite Urine Dipstick - Negative Protein Urine Dipstick - Negative Specific [place] Urine Dipstick - >=1.030 Urine Appearance Urine [...] ? Santy (more content not included)... Normal [facility] Patient Educationon 05-29-20 Patient Education Urology Kidney Stones Kidney stones [...] these instructions at home: Medicines ? Take dars-bjh-qesftwz and prescription medicines only as told by [...] provider. Document Revised: 02/14/2022 Document Reviewed: 02/14/2022 [employer] Patient Education ? 2022 [email or web address] [facility] Urology Office/Clinic Noteon 05-29-2023 Urology Office/Clinic Note [...] stones id'd. CT AP w con 12/06/22 [facility] [place] 5mm RLP stone and 2mm LLP stone. Mild fulness at R renal pelvis with tapering at [facility]. KUB 01/05/23 [facility] - 4mm renal stone in RLP. KUB [...] Jose Palafox, URL [facility] [address] [place] [address]- [phone] Additional Instructions: 4 mos w/ metabolic w/u Patient Education Kidney Stones, Igam-os-Ipvm I, Imani Renae, personally scribed for Dr. Garcia on 05/29/2023 [...] Dipstick: Negative (more content not included)... Normal [facility] Comment on above: Result Comment: Elec tronically [...] with voice recognition artificial intelligence software, specifically [employer], [employer] and or [employer]. Substitutions may have occurred due to the inherent limitations of voice recognition and artificial intelligence software. ATTESTATION: Documentation services were performed after patient or guardian consented to allow [employer] to record this visit. DELVIN credit balance specialist and provider reviewed before signing. DELVIN: Prerna Gamayon/Pasted by Ana Rosa Iglesias. Follow-up No qualifying [...] H/O: penic (more content not included)... Normal [facility] Comment on above: Result Comment: Elec tronically Signed By: Ana Rosa Iglesias\.br\Date and Time Signed: 02/02/23 15:48 EDT\.br\Electronically Co-Signed By: Ignacia KHAN MD\.br\Date and Time Co-Signed: 02/06/23 14:00 EDT Calprotectin, Fecalon 2022 Calprotectin (Stl) [Mass/Mass] 87 mcg/gm Invalid Interpretation Code 0-[address] [facility] Comment on above: Result Comment: Conc entration Interpretation Follow-Up < 5 - 50 ug/g Normal None >50 -120 ug/g Borderline Re-evaluate in 4-6 weeks >120 ug/g Abnormal Repeat as clinically indicated Performed at: [facility] [address] [id number] MD Kody Hayes Performed By: #### 1 [id number] ####[facility] [address] [place] [address] Ambulatory Visit Summaryon 0 02-02-2023 Ambulatory Visit Summary STACEY SAHU :1975 Visit Date:02/02/2023 Ambulatory Visit Instructions Your Diagnosis Crohn's disease, small intestine Chronic GERD Your Care Team Attending Physician - BILL FELIX, Ignacia Primary Care Physician - ESSIE RYAN CNP [...] FELIX, Jose Palafox Where: [facility] [place] Normal [facility] Auto Diffon 02-01-2023 Basophils/100 WBC (Bld) 2.7 % High 0.0-2.[address] [facility] Comment on above: Order Comment: Order Added by Discern Expert. Performed By: #### 2 689938, 2899920, 6687498, 12963799, 4003079 ####[facility] [address] [place] [address] Basophils/Leukocyte s Auto (Bld) [Pure # fraction] 0.2 E9/L Normal 0.0-0.[address] [facility] Comment on above: Order Comment: Order Added by Discern Expert. Performed By: #### 2 803782, 7659650, 4093673, 72625952, 1977525 ####[facility] [address] [place] [address] Eosinophils/100 WBC (Bld) 8.5 % High 0.0-8.[address] [facility] Comment on above: Order Comment: Order Added by Discern Expert. Performed By: #### 2 530738, 4428873, 2376505, 73489063, 4478629 ####[facility] [address] [place] [address] Eosinophils/Leukocy karina Auto (Bld) [Pure # fraction] 0.7 E9/L High 0.0-0.[address] [facility] Comment on above: Order Comment: Order Added by Discern Expert. Performed By: #### 2 161166, 1886122, 3444068, 81009040, 2755803 ####[facility] [address] [place] [address] Lymphocytes/100 WBC (Bld) 34.8 % Normal 14.0-50.[address] [facility] Comment on above: Order Comment: Order Added by Discern Expert. Performed By: #### 2 619305, 9409884, 9854716, 58434572, 9696899 ####[address] [address] Lymphocytes/Leukocy karina Auto (Bld) [Pure # fraction] 2.8 E9/L Normal 1.0-4.[address] [facility] Comment on above: Order Comment: Order Added by Discern Expert. Performed By: #### 2 967859, 1811933, 6471002, 94874972, 9541621 ####[address] [address] Monocytes/100 WBC (Bld) 9.4 % Normal 4.0-14.[address] [facility] Comment on above: Order Comment: Order Added by Discern Expert. Performed By: #### 2 380298, 0459883, 5967032, 88945114, 3788039 ####[address] [address] Monocytes/Leukocyte s Auto (Bld) [Pure # fraction] 0.8 E9/L Normal 0.2-1.[address] [facility] Comment on above: Order Comment: Order Added by Discern Expert. Performed By: #### 2 272086, 7769443, 3421883, 74351154, 1797894 ####[address] [place] [address] Neutrophils/100 WBC (Bld) 44.6 % Normal 36.0-75.[address] [facility] Comment on above: Order Comment: Order Added by Discern Expert. Performed By: #### 2 889266, 3872679, 6327561, 55376177, 4891355 ####[facility] [address] [place] [address] Neutrophils/Leukocy karina Auto (Bld) [Pure # fraction] 3.5 E9/L Normal 2.0-7.[address] [facility] Comment on above: Order Comment: Order Added by Discern Expert. Performed By: #### 2 426109, 1951183, 4485494, 30216229, 1055262 ####[facility] [address] [place] [address] CBC w/ Auto Diffon 3 Erythrocyte distribution width (RBC) [Ratio] 13.6 % Normal 10.9-14.[address] [facility] Comment on above: Performed By: #### 2 732637, 2888821, 9873937, 29641525, 3949213 ####[address] [place] [address] Hematocrit (Bld) [Volume fraction] 39.5 % Normal 34.0-46.[address] [facility] Comment on above: Performed By: #### 2 541608, 6708939, 1959726, 14391816, 9477198 ####[address] [place] [address] Hemoglobin (Bld) [Mass/Vol] 13.3 g/dL Normal 12.0-16.[address] [facility] Comment on above: Performed By: #### 2 736593, 2831596, 3899094, 98002089, 9795738 ####[facility] [address] [place] [address] MCH (RBC) [Entitic mass] 29.1 pg Normal 27.0-34.[address] [facility] Comment on above: Performed By: #### 2 588108, 2210622, 8945540, 77691640, 8425053 ####[facility] [address] [place] [address] MCHC (RBC) [Mass/Vol] 33.7 g/dL Normal 31.4-36.[address] [facility] Comment on above: Performed By: #### 2 894393, 1360686, 4751047, 05546384, 9857084 ####[facility] [address] [place] [address] MCV (RBC) [Entitic vol] 86.4 fL Normal 80.0-100.[address] [facility] Comment on above: Performed By: #### 2 064900, 9399824, 1843606, 13354328, 5102724 ####[facility] [address] [place] [address] Platelet mean volume (Bld) [Entitic vol] 8.9 fL Normal 6.4-10.[address] [facility] Comment on above: Performed By: #### 2 411211, 8683880, 2412535, 75535592, 5205405 ####[address] [address] Platelets (Bld) [#/Vol] 274.0 E9/L Normal 150.0-500.[address] [facility] Comment on above: Performed By: #### 2 996356, 1671968, 6230321, 33122933, 0795587 ####[address] [address] RBC (Bld) [#/Vol] 4.6 E12/L Normal 4.3-5.[address] [facility] Comment on above: Performed By: #### 2 408198, 6119835, 1263620, 69700831, 4591239 ####[facility] [address] [place] [address] WBC corrected for nucl RBC Auto (Bld) [#/Vol] 8.0 E9/L Normal 4.0-11.[address] [facility] Comment on above: Performed By: #### 2 339469, 9564003, 6146125, 73331292, 8346279 ####[address] [place] [address] CHEMISTRYOrdered By: SYSTEM SYSTEM on 02-01-2023 Albumin [Mass/Vol] 4.0 g/dL Normal 3.3 - 5.0 gm/dL [facility] Remisol Albumin/Globulin [Mass ratio] 1.2 {ratio} Normal [...] 9.1 mg/dL Normal 8.9 - 11.1 mg/dL [facility] Chloride [Moles/Vol] 106 mmol/L Normal 101 - 111 mmol/L [facility] CO2 [Moles/Vol] 24 mmol/L Normal 21 - 31 mmol/L [facility] Creatinine [Mass/Vol] 0.9 mg/dL Normal 0.5 - 1.3 mg/dL [facility] Remisol CRP [Mass/Vol] 0.7 mg/dL Normal <=1.9mg/dL FT Remis ol GFR/1.73 sq M.predicted among non-blacks MDRD (S/P/Bld) [Vol rate/Area] 80 mL/min/1.73 m2 Normal >=59mL/min/1.73 m2 FT Chem S Globulin (S) [Mass/Vol] 3.2 g/dL Normal 1.4 - 4.0 gm/dL [facility]isol Glucose [Mass/Vol] 99 mg/dL Normal 55 - 199 mg/dL [facility] Potassium [Moles/Vol] 3.9 mmol/L Normal 3.5 - 5.3 mmol/L [facility]isol Protein [Mass/Vol] 7.2 g/dL Normal 6.0 - 7.8 gm/dL [facility] Sodium [Moles/Vol] 139 mmol/L Normal 135 - 145 mmol/L [facility] Remisol Urea nitrogen [Mass/Vol] 15 mg/dL Normal 5 - 21 mg/dL [facility] Remisol Urea nitrogen/Creatinine [Mass ratio] 17 mg/mg Normal 10 - 20 [facility] Remisol CMPon 02-01-2023 Albumin [Mass/Vol] 4.0 g/dL Normal 3.3-5.[address] [facility] Comment on above: Performed By: #### 2 815328, 2322634, 6404917, 77458237, 7331070 ####[facility] [address] [place] [address] Albumin/Globulin (S) [Mass conc ratio] 1.2 Normal 1.1-2.[address] [facility] Comment on above: Performed By: #### 2 629441, 8912447, 5749386, 22107537, 4779678 ####[facility] [address] [place] [address] ALP [Catalytic activity/Vol] 53 Int._Unit/L Normal 21-[address] [facility] Comment on above: Performed By: #### 2 349341, 3473562, 4506140, 02465872, 8585458 ####[facility] [address] [place] [address] ALT No additional P-5'-P [Catalytic activity/Vol] 18 Int._Unit/L Normal 6-[address] [facility] Comment on above: Performed By: #### 2 559960, 4120655, 5800211, 83228681, 9320554 ####[facility] [address] [place] [address] Anion gap [Moles/Vol] 13 mmol/L Normal 6-[address] [facility] Comment on above: Performed By: #### 2 854723, 4811841, 8810755, 49332286, 8918019 ####[facility] [address] [place] [address] AST [Catalytic activity/Vol] 18 Int._Unit/L Normal 5-[address] [facility] Comment on above: Performed By: #### 2 455064, 1293755, 5385604, 15178911, 6319805 ####[facility] [address] [place] [address] Bilirubin [Mass/Vol] 0.4 mg/dL Normal 0.0-1.[address] [facility] Comment on above: Performed By: #### 2 352564, 9335418, 7008854, 18912882, 6763979 ####[facility] [address] [place] [address] Calcium [Mass/Vol] 9.1 mg/dL Normal 8.9-11.[address] [facility] Comment on above: Performed By: #### 2 201690, 0244406, 3273312, 56417378, 4476329 ####[facility] [address] [place] [address] Chloride [Moles/Vol] 106 mmol/L Normal 101-[address] [facility] Comment on above: Performed By: #### 2 327945, 2607127, 9568284, 51234734, 7983960 ####[facility] [address] [place] [address] CO2 [Moles/Vol] 24 mmol/L Normal 21-31 [facility] Comment on above: Performed By: #### 2 366870, 4019586, 5089572, 74290627, 6781267 ####[facility] [address] [place] [address] Creatinine [Mass/Vol] 0.9 mg/dL Normal 0.5-1.[address] [facility] Comment on above: Performed By: #### 2 146659, 3600251, 2885448, 63270361, 9970905 ####[facility] [address] [place] [address] Globulin (S) [Mass/Vol] 3.2 g/dL Normal 1.4-4.[address] [facility] Comment on above: Performed By: #### 2 352289, 1561641, 9021470, 37712539, 2097737 ####[facility] [address] [place] [address] Glucose [Mass/Vol] 99 mg/dL Normal 55-[address] [facility] Comment on above: Result Comment: If t his glucose result represents a fasting glucose, interpretation should refer to the following reference range: 55-99 mg/dL Performed By: #### 2 241495, 0048311, 7846488, 65843866, 2308202 ####[facility] [address] [place] [address] Potassium [Moles/Vol] 3.9 mmol/L Normal 3.5-5.[address] [facility] Comment on above: Performed By: #### 2 560449, 8502734, 9358881, 75779216, 5980251 ####[facility] [address] [place] [address] Protein [Mass/Vol] 7.2 g/dL Normal 6.0-7.[address] [facility] Comment on above: Performed By: #### 2 240459, 5827430, 4019119, 43288432, 8747668 ####[facility] [address] [place] [address] Sodium [Moles/Vol] 139 mmol/L Normal 135-[address] [facility] Comment on above: Performed By: #### 2 [id number], [id number], [id number], [id number], [id number] ####[facility] [address] [place] [address] Urea nitrogen [Mass/Vol] 15 mg/dL Normal 5-[address] [facility] Comment on above: Performed By: #### 2 075594, [id number], [id number], [id number], [id number] ####[facility] [address] [place] [address] Urea nitrogen/Creatinine [Mass ratio] 17 No Units Normal 10-[address] [facility] Comment on above: Performed By: #### 2 593453, 9840124, 6292079, [id number], [id number] ####[facility] [address] [place] [address] CRPon 02-01-2023 CRP [Mass/Vol] 0.7 mg/dL Normal <=1.9 [facility] Comment on above: Performed By: #### 2 194944, [id number], 3642752, [id number], [id number] ####[facility] [address] [place] [address] Consent for Treatmenton Consent for Treatment [id number]#1.00CD:[address] [facility] HEMATOLOGYOrdered By: SYSTEM SYSTEM on [...] 13.6 % Normal 10.9 - 14.2 % FT HemeAutoSS Hematocrit (Bld) [Volume fraction] 39.5 % Normal 34.0 - 46.0 % FT HemeAutoSS Hemoglobin (Bld) [Mass/Vol] 13.3 g/dL Normal 12.0 - 16.0 gm/dL FT HemeAutoSS MCH (RBC) [Entitic mass] 29.1 pg Normal 27.0 - 34.0 pg FT HemeAutoSS MCHC (RBC) [Mass/Vol] 33.7 g/dL Normal 31.4 - 36.0 gm/dL FT HemeAutoSS MCV (RBC) [Entitic vol] 86.4 fL Normal 80.0 - 100.0 fL FT HemeAutoSS Platelet mean volume (Bld) [Entitic vol] 8.9 fL Normal 6.4 - 10.8 fL FT HemeAutoSS Platelets (Bld) [#/Vol] 274.0 E9/L Normal 150.0 - 500.0 E9/L FT HemeAutoSS RBC (Bld) [#/Vol] 4.6 E12/L Normal 4.3 - 5.9 E12/L FT HemeAutoSS WBC corrected for nucl RBC Auto (Bld) [#/Vol] 8.0 E9/L Normal 4.0 - 11.0 E9/L FT HemeAutoSS eGFRon 02-01-2023 GFR/1.73 sq M.predicted among non-blacks MDRD (S/P/Bld) [Vol rate/Area] 80 mL/min/1.73 m2 Normal >=[address] [facility] Comment on above: Order Comment: Order added by Discern Expert. Result Comment: [employer] gail kidney disease could be indicated at eGFR's of less than 60 mL/min/1.73m2. Kidney failure is indicated at less than 15 mL/min/1.73m2. Performed By: #### 2 111874, 6891925, 1754167, [id number], [id number] ####[facility] [address] [place] [address] XR Abdomen 1 Viewon 01-07-20 23 XR [...] DEBBIE Technologist: LEWIS Technical Comments Radiation Dose: Ka,r in mGy = na DAP = na Normal [facility] Consent for Treatmenton 12-24 Consent for Treatment [id number]#1.00CD:[address] [facility] Outside Colonoscopyon 2022 Outside Colonoscopy [id number]#2.00CD:[address] [facility] CT Abdomen/Pelvis w/contrast (enterography)on 12-09-2022 [...] Oral contrast amount in ml's: [address] [facility] Consent for Treatmenton 11-24 Consent for Treatment [id number]#1.00CD:[address] [facility] Gastroenterology Office/Clin ic Noteon 11-29-2022 [...] after patient or guardian consented to allow [employer] to record this visit. DELVIN credit balance specialist and provider reviewed before signing. DELVIN: [...] Abuse - Demetri (more content not included)... Normal [facility] Comment on above: Result Comment: Elec tronically Signed By: Jesse Bray\.br\Date and Time Signed: 11/24/22 16:24 EDT\.br\Electronically Co-Signed By: BILL FELIX, Ignacia\.br\Date and Time Co-Signed: 11/29/22 21:07 EDT Consent for Procedure/Surger yon 11-28-2022 Consent for Procedure/Surgery [id number]#1.00CD:[address] [facility] Pre-Certification Formon Pre-Certification Form [id number]#1.00CD:[address] [facility] Ambulatory Visit Summaryon 0 11-24-2022 Ambulatory Visit Summary STACEY SAHU :1975 Visit Date:11/24/2022 Ambulatory Visit Instructions Your Diagnosis Crohn's disease, small intestine Abdominal pain Chronic GERD Your Care Team Attending Physician - Ignacia KHAN MD Primary Care Physician - ESSIE RYAN CNP Referring Physician - SHAIKH WHITE This Is [...] FELIX, Jose Palafox Where: [facility] Invalid Interpretation Code Abdominal pain, Print Label By Order Location\.br\ CBC w/ Auto Diff, Blood, Routine collect, 11/24/22, Order for future visit, Lab Collect, Crohn's disease, small intestine [facility] 36on 11-23-2022 36 Please let her know her ECHO was normal. I updated my note with clearance for her upcoming surgery. Please send to surgeons office. She should follow-up with an attending in 3 months or sooner if needed. Thanks Normal [facility] Telephoneon 11-23-2022 Telephone [id number] Stacey Sahu 1975 F Date Provider Department Center 11/23/2022 CAN KAPLAN [facility] RAVI Diaz Family History Problem Relation Age of Onset Coronary artery disease Father Family Status - Relation Status Age at Father Normal [facility] ECHOCARDIO M/2D COMPLETEon 0 11-22-2022 ECHOCARDIO M/2D COMPLETE Patient: STACEY SAHU. Exam Date: 11/22/2022 : 1975 Gender:F Ordering : [facility] Admission #: [id number] Family : Order #: [id number] CLICK HERE TO VIEW EXAM ECHOCARDIOGRAM REPORT [...] Moran M.D. on 11/22/2022 at 17:44 Normal [facility] Ambulatory Visit Summaryon 0 11-08-2022 Ambulatory Visit Summary STACEY SAHU :1975 Visit Date:11/08/2022 Ambulatory Visit Instructions Your Diagnosis Gross hematuria Kidney stones Nocturia Tests Performed Urnls Dip Stick Auto w/o Microscopy POC 46201 XR Abdomen 1 View -- Results Pending [...] PM EDT With: Ignacia KHAN MD Where: [facility] Normal [address] [place] [address]- \.br\ You Need to Schedule the Following Appointments\.br\ Follow Up with LESLIE JUNG PA-C, NORMA When: In 6 months 05/11/2023 EST\.br\ Comments:\.br\ KUB\.br\ Where:\.br\ [address]br\ [place] [address]\.br\ [id number]\.br\ Medications\.br\ What How Much When Instructions\.br\ Unchanged naproxen (Aleve) Every 12 hours Contact prescribing physician if questions or concerns \.br\ Unchanged omeprazole (Prilosec) Every day Contact prescribing physician if questions or concerns \.br\ Test Results\.br\ Urnls Dip Stick Auto w/o Microscopy POC 68591 (11/08/2022)\.br\ Bilirubin Urine Dipstick - Negative\.br\ Blood Urine Dipstick - 3+ Large\.br\ Glucose Urine Dipstick - Negative\.br\ Ketones Urine Dipstick - Negative\.br\ Leukocytes Urine Dipstick - Negative\.br\ Nitrite Urine Dipstick - Negative\.br\ Protein Urine Dipstick - Negative\.br\ Specific [place] Urine Dipstick - 1.020\.br\ Urine Appearance Urine [...] instructions at home:\.br\ Medicines\.br\ ? \.br\ Take dvgy-eoe-exmjivf and prescription medicines only as told by [...] blood stops without treatment.\.br\ ? \.br\ Take kncz-jyc-onfetlk and prescription medicines only as told by your health care provider.\.br\ ? \.br\ Drink enough fluid to keep your urine pale yellow.\.br\ This information is not intended to replace advice given to you by your health care provider. Make sure you discuss any questions you have with your health care provider.\.br\ Document Revised: 02/10/2021 Document Reviewed: 02/10/2021 Elsevier Patient Education ? 2022 Elsevier Inc.\.br\ \.br\ [facility] Office Visiton 11-08-2022 Follow-up visit [id number] Stacey Sahu Lisa 1975 F Date Provider Department Center 11/08/2022 CAN KAPLAN RAVI Ordoñez Family History Problem Relation Age of Onset Coronary artery disease Father Family Status - Relation Status Age at Father Level of Service:57613 LA OFFICE/OUTPATIENT NEW MODERATE MDM 45-59 MINUTES Reason for Visit and Comments: Re-establish care [Other] Pulmonary Hypertension [818] Normal [facility] Patient Educationon 11-09-19 Patient Education Urology Hematuria, Adult Hematuria is [...] these instructions at home: Medicines ? Take jppc-oaw-kmfucsx and prescription medicines only as told by [...] the blood stops without treatment. ? Take dmis-zoz-ejvzptg and prescription medicines only as told by your health care provider. ? Drink enough fluid to keep your urine pale yellow. This information is not intended to replace advice given to you by your health care provider. Make sure you discuss any questions you have with your health care provider. Document Revised: 02/10/2021 Document Reviewed: 02/10/2021 [employer] Patient Education ? 2022 [email or web address] Normal [facility] Urology Office/Clinic Noteon 11-08-2022 Urology [...] PA-C, URL In 6 months 05/11/2023 EST [address] [place] [phone] Additional Instructions: KUB Patient Education Hematuria, Adult I, Moni Gonzáles personally scribed for Leslie Jung PA-C on [...] Protein Urine Dipstick: Negative (11/08/22 13:00:00) Specific [place] Urine Dipstick: 1.020 (11/08/22 13:00:00) Urine Appearance Urine Dipstick: Clear (11/08/22 13:00:00) Urine Color Urine Dipstick: Yellow (11/08/22 13:00:00) Urobilinogen Urine Dipstick: Normal 0.2-1 EU/dl (11/08/22 13:00:00) pH Urine Dipstick: 6 (11/08/22 13:00:00) Diagnostic Results Tests Reviewed: Reviewed UA, KUB Normal [facility] Comment on above: Result Comment: Elec tronically Signed By: LESLIE JUNG PA-C\.br\Date and Time Signed: 11/08/22 13:46 EDT\.br\Electronically Co-Signed By: Moni Gonzáles MA\.br\Date and Time Co-Signed: 11/08/22 13:26 EDT RAD - MISCon 10-28-2022 RAD - MISC [id number]#1.00CD:[address] [facility] US THYROID FN ASP BXon 10-28 US THYROID FN ASP BX Begin Addendum #1 COLLECTED DATE/TIME: 10/18/2022 13:19 EDT Final Diagnosis Report for [facility] [place] (A/B) SOFT TISSUE MASS CEPHALAD TO THYROID; FINE NEEDLE ASPIRATION: -ATYPIA OF UNDETERMINED SIGNIFICANCE. -CYST CONTENT. NOTE: Sparsely cellular aspirate compromised of follicular cells with architectural atypia. Molecular testing or a repeat aspirate may be helpful if clinically indicated. The final diagnosis is based on a microscopic exam of human resources hr representative sections. 10/25/[address] Caceres. 10/26/2022 verified with Shannan that report was present in office (). Original Report EXAMINATION: US THYROID FN ASP [...] 2. Pathology results are pending. Normal [facility] XR KUB 1 VIEWon 10-27-2022 XR [...] by: PAULETTE GALVAN Date: 2022-10-27 07:19 Normal [facility] Provider Letteron 10-06-2022 Provider Letter October 06, 2022 STACEY SAHU [address] [place] [address] STACEY SAHU 1975 Dear Stacey , We [...] [facility] [address], [place] [address] [facility] [address] NECK [address] W CONon CT NECK ST W CON EXAMINATION: CT [...] by: PREET RODRIGEZ Date: 2022-10-05 08:22 Normal [facility] Physician Referralon 023 Physician Referral [id number]#1.00CD:[address] [facility] CARDIAC DENZEL ADMITon 023 CK [Catalytic activity/Vol] 149 U/L Normal 26-192 [facility] Comment on above: Performed By: #### C MADM, LIPA, CMP ####[facility] [address] [place] [id number][address] Nita Iverson CK.MB [Mass/Vol] 1.51 ng/mL Normal <=3.60 [facility] Comment on above: Performed By: #### C MADM, LIPA, CMP ####[facility] [address] [place] [address]Dr. Nita Iverson HSTROP 4.1 pg/mL Normal 4.0-51.3 [facility] Comment on above: Result Comment: CUT- OFF POINTS HAVE BEEN ESTABLISHED BASED ON THE FOURTH UNIVERSAL DEFINITIONS OF MYOCARDIAL INFARCTION. THE UPPER REFERENCE LIMIT (URL) OF TROPONIN, DEFINED THE 99TH PERCENTILE OF cTnI DISTRIBUTION IN A REFERENCE POPULATION, HAS BEEN CONFIRMED THE DECISION THRESHOLD FOR CO DIAGNOSIS. Performed By: #### C MADM, LIPA, CMP ####[facility] [address] [place] [id number]. Nita Iverson ARIES 47 ng/mL Normal 9-82 [facility] Comment on above: Performed By: #### C MADM, LIPA, CMP ####[facility] [address] [place] [address]Dr. Nita Iverson CBC AUTO DIFFon 09-21-2022 BASO # 0.1 103/ul Normal 0.0-0.1 [facility] Comment on above: Performed By: #### C BC #### [facility] [address] [place] [address] Dr. Nita Iverson Basophils/100 WBC (Bld) 0.8 % Normal 0.2-2.0 [facility] Comment on above: Performed By: #### C BC #### [facility] [address] [place] [address] Dr. Nita Iverson EO # 0.7 103/ul Normal 0.0-0.7 [facility] Comment on above: Performed By: #### C BC #### [facility] [address] [place] [address] Dr. Nita Iverson Eosinophils/100 WBC (Bld) 7.1 % Critically high 0.9-7.0 [facility] Comment on above: Performed By: #### C BC #### [facility] [address] [place] [address] Dr. Nita Iverson Erythrocyte distribution width (RBC) [Ratio] 12.3 % Normal 11.0-15.0 [facility] Comment on above: Performed By: #### C BC #### [facility] [address] [place] [address] Dr. Nita Iverson Hematocrit (Bld) [Volume fraction] 40.1 % Normal 36.0-48.0 [facility] Comment on above: Performed By: #### C BC #### [facility] [address] [place] [address] Dr. Nita Iverson Hemoglobin (Bld) [Mass/Vol] 13.6 g/dL Normal 12.0-16.0 [facility] Comment on above: Performed By: #### C BC #### [facility] [address] [place] [address] Dr. Nita Iverson IG # 0.02 10e3/ul Normal 0.00-0.03 [facility] Comment on above: Performed By: #### C BC #### [facility] [address] [place] [address] Dr. Nita Iverson IG % 0.2 % Normal 0.0-0.5 [facility] Comment on above: Performed By: #### C BC #### [facility] [address] [place] [address] Dr. Nita Iverson LYMPH # 3.0 103/ul Normal 1.2-3.8 [facility] Comment on above: Performed By: #### C BC #### [facility] [address] [place] [address] Dr. Nita Iverson Lymphocytes/100 WBC (Bld) 30.2 % Normal 20.5-60.0 [facility] Comment on above: Performed By: #### C BC #### [facility] [address] [place] [address] Dr. Nita Iverson MANUAL DIFF REQ NO Normal [facility] Comment on above: Performed By: #### C BC #### [facility] [address] [place] [address] Dr. Nita Iverson MCH (RBC) [Entitic mass] 30.0 pg Normal 26.7-34.0 [facility] Comment on above: Performed By: #### C BC #### [facility] [address] [place] [address] Dr. Nita Iverson MCHC (RBC) [Mass/Vol] 33.9 g/dL Normal 29.9-35.2 [facility] Comment on above: Performed By: #### C BC #### [facility] [address] [place] [address] Dr. Nita Iverson MCV (RBC) [Entitic vol] 88.3 fL Normal 81.0-99.0 [facility] Comment on above: Performed By: #### C BC #### [facility] [address] [place] [address] Dr. Nita Iverson MONO # 0.8 103/ul Normal 0.3-0.8 [facility] Comment on above: Performed By: #### C BC #### [facility] [address] [place] [address] Dr. Nita Iverson Monocytes/100 WBC (Bld) 7.8 % Normal 1.7-12.0 [facility] Comment on above: Performed By: #### C BC #### [facility] [address] [place] [address] Dr. Nita Iverson NEUT # 5.4 103/ul Normal 1.4-6.5 [facility] Comment on above: Performed By: #### C BC #### [facility] [address] [place] [address] Dr. Nita Iverson Neutrophils/100 WBC (Bld) 53.9 % Normal 43.0-75.0 [facility] Comment on above: Performed By: #### C BC #### [facility] [address] [place] [address] Dr. Nita Iverson Platelet mean volume (Bld) [Entitic vol] 10.4 fL Normal 9.5-13.5 [facility] Comment on above: Performed By: #### C BC #### [facility] [address] [place] [address] Dr. Nita Iverson PLT 270 103/ul Normal 150-450 [facility] Comment on above: Performed By: #### C BC #### [facility] [address] [place] [address] Dr. Nita Iverson RBC 4.54 106/ul Normal 4.20-5.40 [facility] Comment on above: Performed By: #### C BC #### [facility] [address] [place] [address] Dr. Nita Iverson WBC 10.0 103/ul Normal 4.0-11.0 [facility] Comment on above: Performed By: #### C BC #### [facility] [address] [place] [address] ABD/PELV W CONon 09-22-[address] ABD/PELV W CON EXAMINATION: CT ABDOMEN [...] MISTY SPEARS Date: 2022-09-21 21:41 Normal [facility] ER URINE PROFILEon 3 Bilirubin Ql (U) Negative Normal NEGATIVE [facility] Comment on above: Performed By: #### U MICRO, ERUR, PREGU ####[facility] [address] [place] [id number]. Nita Iverson Clarity (U) CLEAR Normal CLEAR [facility] Comment on above: Performed By: #### U MICRO, ERUR, PREGU ####[facility] [address] [place] [address]Dr. Nita Iverson Color (U) LT. YELLOW Normal YELLOW [facility] Comment on above: Performed By: #### U MICRO, ERUR, PREGU ####[facility] [address] [place], [place] [address]Dr. Nita FISHERD A micrscopic examination will be performed if indicated. Normal [facility] Comment on above: Performed By: #### U MICRO, ERUR, PREGU ####[facility] [address] [place] [address]Dr. Nita Iverson Glucose Ql (U) Negative Normal NEGATIVE [facility] Comment on above: Performed By: #### U MICRO, ERUR, PREGU ####[facility] [address] [place], [place] [address]Dr. Nita Iverson Hemoglobin Ql (U) LARGE Abnormal NEGATIVE [facility] Comment on above: Performed By: #### U MICRO, ERUR, PREGU ####[facility] [address] [place], [place] [address]Dr. Nita Iverson Ketones Ql (U) Negative Normal NEGATIVE [facility] Comment on above: Performed By: #### U MICRO, ERUR, PREGU ####[facility] [address] [place], [place] [address]Dr. Nita Iverson LEUKOCYTES Negative Normal NEGATIVE [facility] Comment on above: Performed By: #### U MICRO, ERUR, PREGU ####[facility] [address] [place], [place] [address]Dr. Nita Iverson Nitrite Ql (U) Negative Normal NEGATIVE [facility] Comment on above: Performed By: #### U MICRO, ERUR, PREGU ####[facility] [address] [place], [place] [address]Dr. Nita Iverson pH (U) 6.5 [pH] Normal 5-9 [facility] Comment on above: Performed By: #### U MICRO, ERUR, PREGU ####[facility] [address] [place], [place] [address]Dr. Nita Iverson SPEC GRAVITY 1.020 Normal 1.005-<=1.025 [facility] Comment on above: Performed By: #### U MICRO, ERUR, PREGU ####[facility] [address] [place], [place] [address]Dr. Nita Iverson UA PROTEIN Negative Normal NEGATIVE/ TRACE [facility] Comment on above: Performed By: #### U MICRO, ERUR, PREGU ####[facility] [address] [place] [address]Dr. Nita Iverson UR MICRO IND INDICATED Normal [facility] Comment on above: Performed By: #### U MICRO, ERUR, PREGU ####[facility] [address] [place] [address]Dr. Nita Iverson Urobilinogen Qn (U) 1.0 {Senait'U}/dL Normal 0.2 - 1. 0 [facility] Comment on above: Performed By: #### U MICRO, ERUR, PREGU ####[facility] [address] [place] [address]Dr. Nita Iverson LIPASEon 09-21-2022 Lipase [Catalytic activity/Vol] 89.0 U/L Normal 73.0-393.0 [facility] Comment on above: Performed By: #### C MADM, LIPA, CMP ####[facility] [address] [place] [address]Dr. Nita Iverson URon 09-21-2022 , QUAL Negative Normal NEGATIVE [facility] Comment on above: Performed By: #### U MICRO, ERUR, PREGU ####[facility] [address] [place] [address]DrMaribel Iverson PROF 14(COMP METB)on 023 Albumin [Mass/Vol] 3.5 g/dL Normal 3.4-5.0 [facility] Comment on above: Performed By: #### C MADM, LIPA, CMP #### [facility] [address] [place] [address] [address] Nita Iverson Albumin/Globulin [Mass ratio] 1.0 {ratio} Normal [facility] Comment on above: Performed By: #### C MADM, LIPA, CMP #### [facility] [address] [place] [address] [address] Nita Iverson ALP [Catalytic activity/Vol] 67 U/L Normal 46-116 [facility] Comment on above: Performed By: #### C MADM, LIPA, CMP #### [facility] [address] [place] [address] [address] Nita Iverson ALT [Catalytic activity/Vol] 30 U/L Normal 14-59 [facility] Comment on above: Performed By: #### C MADM, LIPA, CMP #### [facility] [address] [place] [address] [address] Nita Iverson Anion gap [Moles/Vol] 11.8 mmol/L Normal [facility] Comment on above: Performed By: #### C MADM, LIPA, CMP #### [facility] [address] [place] [address] [address] Nita Iverson AST [Catalytic activity/Vol] 25 U/L Normal 15-37 [facility] Comment on above: Performed By: #### C MADM, LIPA, CMP #### [facility] [address] [place] [address] Dr. Nita Iverson Bilirubin [Mass/Vol] 0.3 mg/dL Normal 0.2-1.0 [facility] Comment on above: Performed By: #### C MADM, LIPA, CMP #### [facility] [address] [place] [address] Dr. Nita Iverson Calcium [Mass/Vol] 9.2 mg/dL Normal 8.5-10.1 [facility] Comment on above: Performed By: #### C MADM, LIPA, CMP #### [facility] [address] [address] [address] Nita Iverson Chloride [Moles/Vol] 106 mmol/L Normal 98-107 [facility] Comment on above: Performed By: #### C MADM, LIPA, CMP #### [facility] [address] [place] [address] Dr. Nita Iverson CO2 [Moles/Vol] 28.7 mmol/L Normal 21.0-32.0 [facility] Comment on above: Performed By: #### C MADM, LIPA, CMP #### [facility] [address] [place] [address] Dr. Nita Iverson Creatinine [Mass/Vol] 0.81 mg/dL Normal 0.55-1.02 [facility] Comment on above: Performed By: #### C SHIVANI DENSON, CMP #### [facility] [address] [address] [address] Nita Iverson EGFR-AF ERITREAN >60 Normal >=60 [facility] Comment on above: Performed By: #### C JANETH DENSONA, CMP #### [facility] [address] [address] [address] Nita Iverson EGFR-NON AF ERITREAN >60 Normal >=60 [facility] Comment on above: Performed By: #### C JANETH DENSONA, CMP #### [facility] [address] [place] [address] Dr. Nita Iverson Globulin (S) [Mass/Vol] 3.5 g/dL Normal [facility] Comment on above: Performed By: #### C JANETH DENSONA, CMP #### [facility] [address] [address] [address] Nita Iverson Glucose [Mass/Vol] 106 mg/dL Normal 74-106 [facility] Comment on above: Performed By: #### C JANETH DENSONA, CMP #### [facility] [address] [place] [address] Dr. Nita Iverson Potassium [Moles/Vol] 4.5 mmol/L Normal 3.5-5.1 [facility] Comment on above: Performed By: #### C JANETH DENSONA, CMP #### [facility] [address] [address] [address] Nita Iverson Protein [Mass/Vol] 7.0 g/dL Normal 6.4-8.2 [facility] Comment on above: Performed By: #### C JANETH DENSONA, CMP #### [facility] [address] [place] [address] [address] Nita Iverson Sodium [Moles/Vol] 142 mmol/L Normal 136-145 [facility] Comment on above: Performed By: #### C JANETH DENSONA, CMP #### [facility] [address] [place] [address] [address] Nita Iverson Urea nitrogen [Mass/Vol] 12.0 mg/dL Normal 7.0-18.0 [facility] Comment on above: Performed By: #### C MADM, LIPA, CMP #### [facility] [address] [address] [address] Nita Iverson Urea nitrogen/Creatinine [Mass ratio] 14.8 mg/mg Normal [facility] Comment on above: Performed By: #### C MADM, LIPA, CMP #### [facility] [address] [address] [address] Nita Iverson URINE MICROSCOPIC ONLYon BACTERIA NONE SEEN Normal NONE SEEN [facility] Comment on above: Performed By: #### U MICRO, ERUR, PREGU ####[facility] [address] [address]Dr. Nita Iverson Bacteria identified Cx Nom (U) NOT INDICATED Normal [facility] Comment on above: Performed By: #### U MICRO, ERUR, PREGU ####[facility] [address] [address]Dr. Nita Iverson CAST NONE SEEN Normal NONE SEEN [facility] Comment on above: Performed By: #### U MICRO, ERUR, PREGU ####[facility] [address] [address]Dr. Nita Iverson Crystals LM Nom (Urine sed) NONE SEEN Normal NONE SEEN [facility] Comment on above: Performed By: #### U MICRO, ERUR, PREGU ####[facility] [address] [address]Dr. Nita Iverson Epithelial cells LM Ql (Urine sed) RARE Normal NONE SEEN /RARE [facility] Comment on above: Performed By: #### U MICRO, ERUR, PREGU ####[facility] [address] [address]Dr. Nita Iverson MUCOUS NONE SEEN Normal NONE SEEN [facility] Comment on above: Performed By: #### U MICRO, ERUR, PREGU ####[facility] [address] [place], [place] [address]Wa. Nita Iverson RBC 20-50 Abnormal 0-2 [facility] Comment on above: Performed By: #### U MICRO, ERUR, PREGU ####[facility] [address] [place], [place] [address]Sf. Nita Iverson WBC 2-5 Abnormal NONE SEEN [facility] Comment on above: Performed By: #### U MICRO, ERUR, PREGU ####[facility] [address] [place], [place] [address]Yg. Nita Iverson US THYROIDon 09-06-2022 US THYROID [...] PREET RODRIGEZ Date: 2022-09-06 20:19 Normal [facility] MRI HIP RT WO CONon 08-19-19 23 MRI HIP RT WO CON EXAM: MRI HIP RT WO CON HISTORY: Right hip pain COMPARISON: X-rays 07/07/2022 TECHNIQUE: Axial and coronal large srqaj-bs-yjtb sequencing through the pelvis and both hips. Small qgoga-ab-ejts coronal, sagittal and axial sequencing through the [...] at approximately the 11:00 position (coronal small nzweg-mc-teef 14). The remainder of the labrum exhibits no gross irregularity. The left acetabulum is normal. The bilateral femoral head and acetabular cartilage exhibits no chondral or osteochondral irregularity. The pubic symphysis and sacroiliac joints are normal. Thickening and interstitial edema of the right gluteus medius tendon insertion to the greater trochanter (coronal small akikd-pw-wfit 13 and axial large pzotl-cy-fevq 23). Mild amount of adjacent edema. No abnormal bursal fluid collection. Questionable mild thickening and interstitial edema of the left gluteus minimus tendon (coronal large pcbcr-el-acks 17 and axial large xkisk-cr-eyfp 23 and to a lesser degree the gluteus medius tendon (coronal large fndsj-gd-zphs 21). No tendon tear, tendon tear or [...] by: PAULETTE PHIPPS Date: 2022-08-18 22:39 Normal [facility] PAP ACOG PANEL 2: 30 to 65on 08-11-2022 . . Normal [facility] Comment on above: Result Comment: Perf ormed at: WB Performed By: #### [id number] ####[facility] [address] [id number]. Nita Iverson Age Gdln ACOG Testing 30-65 Normal [facility] Comment on above: Performed By: #### [id number] ####[facility] [address] [id number]. Nita Iverson DIAGNOSIS: Comment Normal [facility] Comment on above: Result Comment: NEGA TIVE FOR INTRAEPITHELIAL LESION OR MALIGNANCY. Performed at: WB Performed By: #### [id number] ####[facility] [address] [id number]. Nita Iverson HPV Aptima Negative Normal Negative [facility] Comment on above: Result Comment: This nucleic acid amplification test detects fourteen high-risk HPV types (16,18,31,33,35,39,45,51,52,56,58,59,66,68) without differentiation. Performed at: =G Performed By: #### [id number] ####[facility] [address] [place], [place] [address]Dr. Nita Iverson HPV Genotype Reflex Comment Normal [facility] Comment on above: Result Comment: Crit eria not met, HPV Genotype not performed. Performed at: WB Performed By: #### 4 [id number] ####[facility] [address] [place], [place] [address]Dr. Nita Iverson Methodology: Comment Normal [facility] Comment on above: Result Comment: This liquid based ThinPrep(R) pap test was screened with the use of an image guided system. Performed at: WB Performed By: #### 4 [id number] ####[facility] [address] [id number]. Nita Iverson Note: Comment Normal [facility] Comment on above: Result Comment: The Pap smear is a screening test designed to aid in the detection of premalignant and malignant conditions of the uterine cervix. It is not a diagnostic procedure and should not be used as the sole means of detecting cervical cancer. Both false-positive and false-negative reports do occur. . Performed at: WB Performed By: #### [id number] ####[facility] [address] [place], [place] [address]Gv. Nita Iverson Performed by: Comment Normal [facility] Comment on above: Result Comment: Jordana Pruett, Double Bottom Driver (ASCP) Performed at: WB Performed By: #### 4 [id number] ####[facility] [address] [place], [place] [address]Dp. Nita Iverson Specimen adequacy: Comment Normal [facility] Comment on above: Result Comment: Sati sfactory for evaluation. No endocervical component is identified. Performed at: WB Performed By: #### 4 [id number] ####[facility] [address] [place], [place] [address]Sy. Nita Iverson US PELVIS AND TRANSVAGon US PELVIS [...] by: PAULETTE GALVAN Date: 2022-06-06 17:[address] [facility] [address] ABD/PELV WO W CONon 04-25 [...] by: PREET RODRIGEZ Date: 2022-04-25 08:09 Normal [facility] RENAL W_WO PHARMon 2021 [place] RENAL W_WO PHARM EXAMINATION: [place] RENAL W_WO PHARM HISTORY: Kidney stone COMPARISON: [...] by: PAULETTE GALVAN Date: 2022-03-22 17:23 Normal [facility] XR KUB 1 VIEWon 03-22-2022 XR [...] by: PAULETTE GALVAN Date: 2022-03-22 17:57 Normal [facility] US THYROIDon 03-09-2022 US THYROID EXAMINATION: [...] IMPRESSION: Multinodular goiter, grossly stable TI-RADS: The [employer] TI-RADS committee's white paper recommendations for thyroid lesions classified as TR4 (moderately suspicious) are listed below: > 1.0 cm. Follow-up ultrasound in 1, 2, 3, and 5 years. > 1.5 cm. FNA. J. Am Rosendo Radiol 2017;14:587-595. Electronically authenticated by: PAULETTE GALVAN Date: 2022-03-09 07:07 [address] [facility] [address] ABD/PELV WO W CONon 03-07 [...] by: PREET RODRIGEZ Date: 2022-03-07 16:45 Normal [facility] CNOVon 02-21-2022 OV Office Visit (NICOLA) -------- STACEY SAHU ([id number]) 1975 F Date Time Provider Department 02/21/22 1:00 PM SHIRAZ BO During your visit today, we recorded the following information about you: Pulse Blood pressure Weight 76/minute 138/85 88.8 kg Shirazgriffin Bo, 03/13/2022 1:15 PM Signed [facility] Neurological [facility] - Medical Spine Initial Exam [...] gel - no benefit Therapies PT at [facility] in [place] in June 2021 - 2 times per week for 1 month, exercises, TENS, ice - no relief Ice/heat Prior spine/MSK interventions: -12/31/21 Dr. Muñoz: R GTB CSI - minimal relief for 1 day. 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 Normal [facility] MG MAMM SCREEN 3D GRACIE CADon 02-09-2022 MG MAMM SCREEN 3D GRACIE CAD Patient: STACEY SAHU Exam Date: 02/09/2022 : 1975 Gender:F Ordering : NIURKA RYAN [facility] Admission #: [id number] Family : Order #: [id number] CLICK HERE TO VIEW EXAM RADIOLOGY REPORT [...] colon cancer at age 56. LOCATION: [facility] BREAST COMPOSITION: Scattered areas fibroglandular density. [...] M.D. on 02/09/2022 at 14:53 Normal [facility] Covid-19 PCR (CVDTBH)on SARS-CoV-2 (COVID-19) RNA IZAIAH+probe Ql (Unsp spec) Detected Critically abnormal NOT DETECTED [facility] Comment on above: Result Comment: This test is not yet approved or cleared by the [place] FDA. When there are no FDA-approved or cleared tests available, and other criteria are met, FDA can make tests available under an emergency access mechanism called an Emergency Use Authorization (EUA). The EUA for this test is supported by the Bacon Slicer of Health and Human Service's declaration that [...] longer be used). Performed By: #### [facility] #### [facility] [address] [place] [address] Dr. Nita Figueroa 01-17-2022 CNOV Office Visit (LOORRM) -------- STACEY SAHU ([id number]) 1975 F Date Time Provider Department 01/17/22 3:30 PM BREEZY MUÑOZ During your visit today, we recorded the following information about you: Breezy Muñoz DO 01/17/2022 3:48 PM Signed SERVICE DATE: January 17, 2022 PCP: Essie Ryan CNP, NUCLEAR WASTE PROCESS OPERATOR Patient was self-referred. Subjective Patient ID: Stacey [...] x 4 Crohn's disease without complication (HCC) [id number] Pulmonary Htn (Hcc) Obese Nirmala (Obstructive Sleep [...] hip (primary encounter diagnosis) Plan: CONSULT TO [facility] (M51.27) Lumbago-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 Plan: CONSULT TO [facility] Office Visit on 01/17/22 - CONSULT TO SPINE [facility] CENTER PLAN I recommend she go to [...] TO S (more content not included)... Normal [facility] CNOVon 12-31-2021 CNOV Office Visit (LOORRM) -------- STACEY SAHU ([id number]) 1975 F Date Time Provider Department 12/31/21 1:00 PM BREEZY MUÑOZ REECEMarita During your visit today, we recorded the following information about you: Breezy Muñoz DO 12/31/2021 1:10 PM Signed SERVICE DATE: December 31, 2021 PCP: Essie Ryan CNP, NUCLEAR WASTE PROCESS OPERATOR Patient was self-referred. Subjective Patient ID: Stacey [...] x 4 Crohn's disease without complication (HCC) [id number] Pulmonary Htn (Hcc) Obese Nirmala (Obstructive Sleep [...] Care Vi (more content not included)... Normal [facility] MR femur RT wo/w fernando 12-04 MR femur RT wo/w radha [facility] Main [place] [address] [place], [place] [id number] MRI Report Signed Patient: Stacey Sahu MR#: [id number] : 1975 Acct:[id number] Age/Sex: 46 / F ADM Date: 12/03/21 Loc: MR Room: Type: [facility] Attending Dr: Alexis Saenz II, MD Ordering [...] Stock Jr., M.D.12/04/2021 3:45 PM Dictation Location: [address] [address] Transcribed By: PÉREZ 12/04/21 1545 Dictated By: Breezy Stock Jr, MD 12/04/21 1519 Signed By: 12/04/21 1545 [facility] XR femur RT 2V*on 11-17-2021 XR femur RT 2V* [facility] [place] [address] XRay Report Signed Patient: Stacey Sahu MR#: [id number] : 1975 Acct:[id number] Age/Sex: 46 / F ADM Date: 11/17/21 Loc: SOXD Room: Type: [facility] Attending Dr: Alexis Saenz II, MD Ordering Provider: Alexis Saenz MD Date of Service: 11/17/21 XR/XR hip RT min 2V(w/wo pelvis)*: Right hip pain ([id number]) XR/XR femur RT 2V*: Right hip pain [...] Vipin Iniguez M.D.11/17/2021 3:56 PM Dictation Location: [address] [address] Transcribed By: [facility] 11/17/21 1556 Dictated By: Vipin Iniguez DO 11/17/21 1553 Signed By: 11/17/21 1556 [facility] Large Joint Arthro/Inj: R gr eater trochanteric bursa [facility] Vital Signs Date Time Vital Sign Value Performing Clinician Facility 06-28-2023 10:34-0500 Body height 149.9 cm Evans Anderson PA-C Work Phone: [facility] 06-28-2023 10:34-0500 Body mass index (BMI) [Ratio] 38.78 kg/m2 Evans Anderson PA-C Work Phone: [facility] 06-28-2023 10:34-0500 Body weight 87.09 kg Evans Verhoff PA-C Work Phone: [facility] 06-28-2023 10:34-0500 Diastolic blood pressure 107 mm[Hg] Evans Verhoff PA-C Work Phone: [facility] 06-28-2023 10:34-0500 Heart rate 93 /min Evans Verhoff PA-C Work Phone: [facility] 06-28-2023 10:34-0500 SaO2% (BldA) [Mass fraction] 97 % Evans Verhoff PA-C Work Phone: [facility] 06-28-2023 10:34-0500 Systolic blood pressure 139 mm[Hg] Evans Verhoff PA-C Work Phone: [facility] 05-29-2023 14:39-0500 Blood Pressure Location Jose GARCIA [facility] 05-29-2023 14:39-0500 Diastolic blood pressure 83 mm[Hg] Jose GARCIA [facility] 05-29-2023 14:39-0500 Heart rate 88 /min Jose GARCIA [facility] 05-29-2023 14:39-0500 Respiratory rate 16 /min Jose GARCIA [facility] 05-29-2023 14:39-0500 Systolic blood pressure 131 mm[Hg] Jose GARCIA [facility] 11-24-2022 13:48-0400 Diastolic blood pressure 106 mm[Hg] Ignacia KHAN [facility] 11-24-2022 13:48-0400 Mean blood pressure 121 mm[Hg] Beth SALAM [facility] 11-24-2022 13:48-0400 Systolic blood pressure 152 mm[Hg] Beth SALAM [facility] 11-24-2022 13:46-0400 Blood Pressure Location Beth SALAM [facility] 11-24-2022 13:46-0400 Diastolic blood pressure 118 mm[Hg] Beth SALAM [facility] 11-24-2022 13:46-0400 Heart rate 80 /min Beth SALAM [facility] 11-24-2022 13:46-0400 Respiratory rate 16 /min Beth SALAM [facility] 11-24-2022 13:46-0400 Systolic blood pressure 161 mm[Hg] Beth SALAM [facility] 04-26-2022 12:03-0400 Blood Pressure Location Jose GARCIA [facility] 04-26-2022 12:03-0400 Diastolic blood pressure 95 mm[Hg] Jose GARCIA [facility] 04-26-2022 12:03-0400 Heart rate 102 /min Jose GARCIA [facility] 04-26-2022 12:03-0400 Systolic blood pressure 141 mm[Hg] Jose GARCIA [facility] 02-21-2022 12:39-0400 Body weight 88.81 kg Shiraz Bo Work Phone: [facility] 02-21-2022 12:39-0400 Diastolic blood pressure 85 mm[Hg] Shiraz Bo DO Work Phone: [facility] 02-21-2022 12:39-0400 Heart rate 76 /min Shiraz Bo DO Work Phone: [facility] 02-21-2022 12:39-0400 Systolic blood pressure 138 mm[Hg] Shiraz Bo DO Work Phone: [facility] 12-09-2021 09:00-0400 Body height 160.02 cm Alexis Dany II Other [employer] Other 12-09-2021 09:00-0400 Body mass index (BMI) [Ratio] 34.47 kg/m2 Alexis Concord II Other [employer] Other 12-09-2021 09:00-0400 Body weight 88.27 kg Alexis Dany II Other [employer] Other 11-17-2021 15:30-0400 Body height 160.02 cm Alexis Dany II Other [employer] Other 11-17-2021 15:30-0400 Body mass index (BMI) [Ratio] 32.41 kg/m2 Alexis Dany II Other [employer] Other 11-17-2021 15:30-0400 Body weight 83.01 kg Alexis Dany II Other [employer] Other Encounters Encounter Date Encounter Type Care Provider Facility Start: 10-02-2023 ambulatory Jose Singleton ty:FLORENTIN Tobias Start: 07-13-2023 End: 07-14-2023 ambulatory ESSIE RYAN Not Available Start: 07-11-2023 End: 07-11-2023 ambulatory Juliana Block Other [employer] Other Start: 07-11-2023 Office outpatient vi sit 25 minutes Juliana [facility] Start: 07-04-2023 End: 07-04-2023 ambulatory ESSIE RYAN Not Available Start: 06-28-2023 End: 06-28-2023 ambulatory EVANS ANDERSON [facility] Start: 06-28-2023 End: 06-28-2023 Office outpatient visit 15 minutes Evans PETERSC Work Phone: [facility] Comment on above: Lumbar radiculopathy (Primary Dx) Start: 05-29-2023 End: 05-30-2023 ambulatory Jose GARCIA Facility:[facility] Start: 05-29-2023 End: 05-29-2023 Patient encounter procedure Jose GARCIA [facility] Start: 05-10-2023 End: 05-10-2023 ambulatory NEDA CACERES Not Available Start: 02-02-2023 End: 02-03-2023 [facility] Start: 02-02-2023 End: 02-03-2023 [facility] Start: 02-02-2023 End: 02-02-2023 Lab Drop off Beth SALAM [facility] Start: 02-01-2023 End: 02-02-2023 ambulatory Beth SALAM Facility:[facility] Start: 02-01-2023 End: 02-01-2023 [facility] Start: 01-05-2023 End: 01-06-2023 ambulatory Beth SALAM Facility:[facility] Start: 01-03-2023 End: 01-04-2023 [facility][id number] Start: 12-06-2022 End: 12-07-2022 ambulatory Ignacia KHAN Facility:[facility] Start: 12-06-2022 End: 12-06-2022 Patient encounter procedure Beth SALAM [facility] Start: 11-24-2022 End: 11-25-2022 ambulatory LUNDBERG MARIJA [facility] Start: 11-24-2022 End: 11-24-2022 Patient encounter procedure Beth SALAM [facility] Start: 11-22-2022 End: 11-23-2022 ambulatory CAN HACKER Facility: Start: 11-08-2022 End: 11-08-2022 ambulatory [facility] Start: 11-08-2022 End: 11-08-2022 Encounter for preprocedural cardiovascular examination [facility] Start: 11-08-2022 End: 11-09-2022 ambulatory ANNE MARIEENDRANMONA GARCIA . Facility:[facility] Start: 10-26-2022 End: 10-27-2022 ambulatory NIURKA RYAN Facility:[facility] Start: 10-18-2022 End: 10-18-[address] NEDA CACERES Facility:[facility] Start: 10-04-2022 End: 10-05-[address] NEDA CACERES Facility:[facility] Start: 09-28-2022 ambulatory Ignacia KHAN Facility:[facility] Start: 09-21-2022 End: 09-22-2022 ambulatory EDNA MCRAE . Facility:[facility] Start: 09-06-2022 End: 09-07-[address] NEDA CACERES Facility:[facility] Start: 08-18-2022 End: 08-19-2022 ambulatory SHARONA JIMENEZ Facility:[facility] Start: 08-04-2022 End: 08-05-[address] [...] Start: 04-26-2022 End: 04-26-2022 Patient encounter procedure Jose GARCIA [facility] Start: 04-22-2022 End: 04-23-2022 ambulatory NIURKA RYAN Facility:[facility] Start: 03-29-2022 End: 03-30-[address] MARKO MORALES . Facility:[facility] Start: 03-22-2022 End: 03-23-2022 ambulatory NIURKA RYAN Facility:[facility] Start: 03-22-2022 End: 03-23-[address] MARKO MORALES . Facility:[facility] Start: 03-08-2022 End: 03-09-[address] NEDA CACERES Facility:[facility] Start: 03-08-2022 End: 03-08-2022 Patient encounter procedure Jose GARCIA [facility] Start: 03-07-2022 End: 03-08-2022 ambulatory NUCLEAR WASTE PROCESS OPERATOR ESSIE RYAN Facility:[facility] Start: 02-21-2022 End: 02-21-2022 ambulatory ESSIE RYAN Facility:[facility] Start: 02-21-2022 End: 02-21-2022 Patient encounter procedure Shiraz Bo DO Work Phone: Spine Medicine Comment on above: Tendinopathy of righ t gluteal region (Primary Dx); Trochanteric bursitis of right hip; Chronic bilateral low back pain without sciatica; Lumbar spondylosis Start: 02-09-2022 End: 02-10-2022 ambulatory NIURKA RYAN Facility:[facility] Start: 01-24-2022 End: 01-24-2022 ambulatory NUCLEAR WASTE PROCESS OPERATOR ESSIE RYAN Facility:[facility] Start: 01-17-2022 End: 01-17-2022 ambulatory ESSIE LAWSONJACOB Facility:[facility] Start: 01-17-2022 End: 01-17-2022 Patient encounter procedure Breezy Muñoz DO Work Phone: Orthopaedics Comment on above: Trochanteric bursiti s of right hip (Primary Dx); Lumbago-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 Start: 01-05-2022 End: 01-05-2022 ambulatory Alexis Concord II Other [employer] Other Start: 01-05-2022 Telephone encounter Alexis Concord II [facility] Start: 12-31-2021 End: 12-31-2021 ambulatory BREEZY MUÑOZ Facility:[facility] Start: 12-31-2021 End: 12-31-2021 Patient encounter procedure Breezy Muñoz DO Work Phone: Orthopaedics Comment on above: Trochanteric bursiti s of right hip (Primary Dx) Start: 12-09-2021 End: 12-09-2021 ambulatory Alexis Concord II Other [employer] Other Start: 12-09-2021 Office outpatient vi sit 25 minutes Alexis Concord II [facility] Start: 11-17-2021 End: 11-17-2021 ambulatory Alexis Concord II Other [employer] Other Start: 11-17-2021 Office outpatient ne w 45 minutes Alexis Concord II [facility] Start: 06-02-2017 End: 06-03-2017 Ambulatory DEFAULT PHYSICIAN Facility:[facility] Start: 05-15-2017 End: 05-16-2017 Ambulatory DEFAULT PHYSICIAN Facility:[facility] Start: 05-01-2017 End: 05-02-2017 Ambulatory DEFAULT PHYSICIAN Facility:[facility] Procedures Date Procedure Procedure Detail Performing Clinician [...] fallopian tubes Jose GARCIA partial colectomy Jose LAUREN LANGLEY Tonsillectomy Jose GARCIA Plan of Treatment Date Care Activity Detail Author Start: 2036 HEPATITIS B (1 of 3 - Risk 3-dose series) HEPATITIS B (1 of 3 - Risk 3-dose series) [facility] Start: 06-28-2024 Adult BMI Screening Adult BMI Screening [facility] Start: 06-28-2024 Tobacco Screening Tobacco Screening [facility] Start: 12-15-2023 DIABETES SCREEN DIABETES SCREEN [facility] Start: 08-30-2023 End: 08-30-2023 Patient encounter procedure 08/30/2023 8:15 AM EST Office Visit [facility] [address] [place] [id number] Evans Anderson PAAllan [address] [place] [address] [facility] Start: 02-24-2023 Influenza vaccination Influenza Vaccine [facility] Start: 02-14-2023 Adult depression screening assessment DEPRESSION SCREENING [facility] Start: 02-24-2022 Influenza vaccination INFLUENZA (#1) [facility] Start: 12-15-2021 Colonoscopy COLONOSCOPY [facility] Start: 12-15-2021 COLORECTAL CANCER SCREENING COLORECTAL CANCER SCREENING [facility] Start: 2021 COLOGUARD (FIT-DNA) COLOGUARD (FIT-DNA) [facility] Start: [address] COLONOGRAPHY [facility] Start: 2021 FECAL OCCULT BLOOD FECAL OCCULT BLOOD [facility] Start: 2021 LIPID SCREEN LIPID SCREEN [facility] Start: 2021 SIGMOIDOSCOPY SIGMOIDOSCOPY [facility] Start: 2016 Mammography MAMMOGRAM [facility] Start: 2006 HPV TESTING HPV TESTING [facility] Start: 1997 PAP TESTING PAP TESTING [facility] Start: 1995 DTaP,Tdap and Td Vaccines (1 - Tdap) DTaP,Tdap and Td Vaccines (1 - Tdap) [facility] Start: 1995 HEPATITIS B (1 of 3 - Risk 3-dose series) HEPATITIS B (1 of 3 - Risk 3-dose series) [facility] Start: 1995 Urine microalbumin profile DTAP,TDAP,TD (1 - Tdap) [facility] Start: 1994 Adult BMI Follow Up Plan Adult BMI Follow Up Plan [facility] Start: 1994 HIV SCREENING HIV SCREENING [facility] Start: 1994 MMR (1 of 2 - Risk 2-dose series) MMR (1 of 2 - Risk 2-dose series) [facility] Start: 1988 Adult depression screening assessment DEPRESSION SCREENING [facility] Start: 1986 MENINGOCOCCAL B: Consider based on risk (1 of 4 - Increased Risk Bexsero 2-dose series) MENINGOCOCCAL B: Consider based on risk (1 of 4 - Increased Risk Bexsero 2-dose series) [facility] Start: 1977 HEPATITIS A (1 of 2 - Risk 2-dose series) HEPATITIS A (1 of 2 - Risk 2-dose series) [facility] Start: 1976 COVID-19 VACCINE (#1) COVID-19 VACCINE (#1) [facility] Immunizations Immunization Date Immunization Notes Care Provider Fa cilimanuel 05-03-2012 influenza, whole Jose WOOTEN [facility] 05-03-2012 influenza virus vaccine, unspecified formulation Evans Anderson PA-C Work Phone: [facility] Payers Date Payer Category Payer Private Health Insurance [facility] [id number] 2022-Present [phone] [address] [place] [address] [id number] 2020 Medicaid [facility] MEDICAID [facility] MEDICAID [id number] 2020-Present [phone] [address] [place] [address] Medicaid [id number] 2020 Medicaid [facility] MEDICAID [facility] MEDICAID OF [place] [id number] 2020-Present [phone] [address] [place] [address] Medicaid [id number] 1976 Unknown [id number] 2.16.840.1.220247.3.579. 2.593 1976 Unknown [id number] 2.16.840.1.458449.3.579. 2.593 1976 Unknown [id number] 2.16.840.1.755783.3.579. 2.593 1976 Unknown [id number] 2.16.840.1.798158.3.579. 2.593 1976 Unknown [id number] 2.16.840.1.113340.3.579. 2.593 1976 Unknown [id number] 2.16.840.1.888232.3.579. 2.593 1976 Unknown [id number] 2.16.840.1.307319.3.579. 2.593 1976 Unknown [id number] 2.16.840.1.410567.3.579. 2.593 1976 Unknown [id number] 2.16.840.1.772575.3.579. 2.593 1976 Unknown [id number] 2.16.840.1.217696.3.579. 2.593 1976 Unknown [id number] 2.16.840.1.223130.3.579. 2.593 1976 Unknown [id number] 2.16.840.1.255486.3.579. 2.593 1976 Unknown [id number] 2.16.840.1.514445.3.579. 2.593 1976 Unknown [id number] 2.16.840.1.426600.3.579. 2.593 1976 Unknown [id number] 2.16.840.1.625073.3.579. 2.593 1976 Unknown [id number] 2.16.840.1.197310.3.579. 2.593 1976 Unknown [id number] 2.16.840.1.420266.3.579. 2.593 1976 Unknown [id number] 2.16.840.1.734134.3.579. 2.593 1976 Unknown [id number] 2.16.840.1.230146.3.579. 2.593 1976 Unknown [id number] 2.16.840.1.352869.3.579. 2.593 1976 Unknown [id number] 2.16.840.1.483522.3.579. 2.593 1976 Unknown [id number] 2.16.840.1.642116.3.579. 2.593 1976 Unknown [id number] 2.16.840.1.060134.3.579. 2.593 1976 Unknown [id number] 2.16.840.1.577644.3.579. 2.1286 1976 Unknown [id number] 2.16.840.1.802577.3.579. 2.1259 1976 Unknown [id number] 2.16.840.1.238028.3.579. 2.1259 1976 Unknown [id number] 2.16.840.1.258311.3.579. 2.1259 1976 Unknown [id number] 2.16.840.1.270718.3.579. 2.727 1976 Unknown [id number] 2.16.840.1.997126.3.579. 2.727 1976 Unknown [id number] 2.16.840.1.017292.3.579. 2.727 1976 Unknown [id number] 2.16.840.1.994812.3.579. 2.727 1976 Unknown [id number] 2.16.840.1.096339.3.579. 2.727 1976 Unknown [id number] 2.16.840.1.254076.3.579. 2.727 1976 Unknown [id number] 2.16.840.1.627328.3.579. 2.727 1976 Unknown [id number] 2.16.840.1.565476.3.579. 2.727 1976 Unknown [id number] 2.16.840.1.187555.3.579. 2.727 1976 Unknown [id number] 2.16.840.1.654485.3.579. 2.727 1959 Unknown [id number] 2.16.840.1.948557.19 1959 Unknown [id number] Unknown Social History Date Type Detail Facility Start: 08-06-2020 End: 06-28-2023 [facility] [employer] Other Start: 07-27-2016 End: 04-12-2023 Tobacco smoking status NHIS Never smoked tobacco [facility] Start: 07-27-2016 End: 04-12-2023 Tobacco use and exposure Smokeless tobacco non-user [facility] Start: 12-15-2020 End: 06-28-2023 Alcohol intake Current non-drinker of alcohol (finding) [facility] Start: 1975 Sex Assigned At Not on file C [facility] Start: 01-07-2022 End: 02-21-2022 Exposure to SARS-CoV-2 (event) Not sure [facility] Tobacco Past [facility] Comment on above: stopped 12 years ago stopped 12 years ago Tobacco smoking status No Smoking Status Entered [facility] Tobacco smoking status Never [facility] Start: 08-06-2020 End: 06-28-2023 History of [facility] Functional Status Date Assessment Result Facility 05-29-2023 Functional Status N/A [facility] 11-24-2022 Functional Status N/A [facility] 04-26-2022 Functional Status N/A [facility] Clinical Notes 12-14-2020 to 07-11-2023 Note Date [...] treatment plan. Patient left in stable condition [employer] Other 01-03-2024 History of Present illness Narrative* Evans Anderson PA-C - 06/28/2023 10:45 AM EST [facility] [address] [place] [address] Patient: Stacey Sahu Sex: female : 1975 Age: 48 y.o. PCP: ESSIE RYAN, LAY-NUCLEAR WASTE PROCESS OPERATOR 06/28/2023 Stacey Sahu is here for a(n) [...] min: NSAIDS, ice /heat, accupuncture, inj at [facility] Mod relief: Narcotics Sign: Steroid inj by Ortho) for the symptoms. The treatment provided moderate relief. The effect of pain on patient's ADLS: Minimal Impairment. Past Medical History: Diagnosis Date Arthritis Bipolar disorder ([facility]) Chronic pain disorder Crohn's colitis ([facility]) Depression GERD (gastroesophageal reflux disease) H/O methicillin resistant Staphylococcus aureus infection Hyperlipidemia Joint pain Pleurisy Pulmonary hypertension ([facility]) Pulmonary hypertension ([facility]) Sleep apnea cpap Past Surgical History: Procedure Laterality Date COLON SURGERY part of bowel removed d/t crohns dx HYSTERECTOMY 2017 INJECTION SPINE TRANSFORAMINAL Right L 5,1 Nroot Right 05/26/2023 Performed by Pj Gannon MD at [facility] DEQUERVAINS CONTRACTURE Right 10/17/2018 Performed by Dereck Bagley DO at [facility] THY[facility], PARTIAL Allergies Allergen Reactions Penicillins [...] PA-C by Essie Dutton CNA. Provider Statement: EVANS Batres PA-C, personally performed the services described in the documentation, as scribed by Essie Dutton CNA in my presence, and it is both accurate and complete. Essie Dutton CNA 06/28/23 1208 Evans Anderson PA-C 06/28/23 1229 documented in this encounterOhioHealth Nelsonville Health [email or web address] [facility] [id number] Hospital Discharge instructions Patient Education 05/29/2023 15:17:27 Kidney Stones, Bnnw-kt-Obar Kidney Stones Kidney stones are rock-like masses [...] Follow these instructions at home: Medicines Take mdec-pjd-lfzhzxj and prescription medicines only as told by [...] provider. Document Revised: 02/14/2022 Document Reviewed: 02/14/2022 [employer] Patient Education 2022 [email or web address] Follow Up Care 11/08/2022 13:29:10 With:JOSE FELIX, Jose R, URL Address: [facility] [address] [place] [address] [phone] When: Unknown Comments:4 mos w/ metabolic w/u [facility] 05-16-2023 NoteNew patient here to re-establish care. Needs cleared for thyroid surgery with Dr. Caceres. Was last seen by Dr. Blackwood in 2018 for pulmonary hypertension. Denies chest pain and SOB. Does feel palpitations 3-4 times a day. Review of Systems Cardiovascular: Positive for palpitations. All other systems reviewed and are negative.[facility] 11-08-2022 NoteCardiovascular Medicine [facility] SUBJECTIVE Chief Complaint Patient presents with [...] Preserved LVEF - RVSP 27mmHg Normal cors (F 03/2012) Exercise stress 2014- no ischemia NIRMALA [...] Final Atrial Rate 05/01/2017 90 BPM Final LA Interval 05/01/2017 122 ms Final QRS DURATION 05/01/2017 98 ms Final QT Interval 05/01/2017 374 ms Final QTC CALCULATION(BEZET) 05/01/2017 457 ms Final P [place] 05/01/2017 46 degrees Final R-[place] 05/01/2017 60 degrees Final T Wave [place] 05/01/2017 37 degrees Final Diagnosis 05/01/2017 Final Value:Normal sinus rhythm Nonspecific T wave abnormality Abnormal ECG When compared with ECG of 05/19/2015 Nonspecific T wave abnormality Anterolateral leads Confirmed by Andre NEGRETE, L.S. (2) on 05/02/2017 10:05:02 AM No results found for: EXTCMP, BMPR1A, CBCDIF, BNP, BNP, LASAP, RED Testing/Procedures: EKG (11/08/2022): sinus rhythm ECHO (2016) Global left ventricular systolic function is normal (Visually estimated EF 55%). No regional wall motion abnormality. Normal diastolic function. Normal right ventricular systolic function (more content not included)... [facility]02-09-2023 NoteCONSULTATION CONSULTATION DATE: 08/04/2022 HISTORY OF PRESENT [...] medications in three months, unless otherwise indicated.[facility] [id number] NotePROCEDURE: XR HIP RT 2 3V WO [...] authenticated by: PREET RODRIGEZ Date: 2022-07-07 15:33[facility] [id number] NoteCONSULTATION CONSULTATION DATE: 07/07/2022 HISTORY OF PRESENT [...] procedure, and she agrees to move forward.[facility] [id number] NoteCONSULTATION CONSULTATION DATE: 06/09/2022 HISTORY OF PRESENT [...] will re-evaluate with application of the diclofenac.[facility] 04-26-2022 Hospital Discharge instructions Patient Education [...] 06/12/2006 Document Revised: 03/01/2019 Document Reviewed: 05/12/2017 [employer] Patient Education 2020 [email or web address] 04/26/2022 12:17:47 Hematuria, Adult Hematuria, Adult Hematuria [...] Follow these instructions at home: Medicines Take eaxk-wnd-cxtitmc and prescription medicines only as told by [...] or the blood stops without treatment. Take gyhg-skk-lghpoyf and prescription medicines only as told by your health care provider. Drink enough fluid to keep your urine clear or pale yellow. This information is not intended to replace advice given to you by your health care provider. Make sure you discuss any questions you have with your health care provider. Document Released: 06/12/2006 Document Revised: 11/06/2019 Document Reviewed: 07/15/2017 [employer] Patient Education 2020 [email or web address] Follow Up Care 04/22/2022 08:39:58 With:JOSE FELIX, Jose Palafox, URL Address: [address] [place] [phone] When:Within 6 Month(s) Comments:6 mo fu with KUB [facility] 10-04-2022 NoteCONSULTATION PROCEDURE DATE: 03/29/2022 PREOPERATIVE DIAGNOSIS: [...] Will be followed up in the office.[facility] [id number] NoteCONSULTATION CONSULTATION DATE: 03/22/2022 CHIEF COMPLAINT: Right [...] follow up subsequent to that. CC: Essie Ryan, [facility]09-13-2022 Hospital Discharge instructions Patient Education 03/08/2022 [...] With:Jose GARCIA Address: [facility] [address], [place] [address]- Business (1) When: Unknown Comments:Office will call to schedule follow up [facility]08-29-2022 NoteHNO ID: [id number] Author: Shiraz Bo, DO Service: ? Author Type: Physician Type: Progress Notes Filed: 03/13/2022 1:15 PM Note Text: [facility] Neurological [facility] - Medical Spine Initial Exam [...] gel - no benefit Therapies PT at [facility] in [place] in June 2021 - 2 times per week for 1 month, exercises, TENS, ice - no relief Ice/heat Prior spine/MSK interventions: -12/31/21 Dr. Muñoz: R GTB CSI - minimal relief for 1 day. 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[place], [place] Litigation: No Workers' Compensation: No YELLOW [...] x 4 Crohn's disease without complication (HCC) [id number] Pulmonary Htn (Hcc) Obese Nirmala (Obstructive Sleep Apnea) Gerd (Gastroesophageal Reflux Disease) Crohn's Disease of Intestine (Hcc) Enterolith of Small Intestine (Hcc) Bipolar Disease, Chronic (Hcc) Other Hyperlipidemia PAST MEDICAL HISTORY Diagnosis Date Abnormal uterine bleeding s/p hysterectomy Bipolar disorder (HCC) Crohn's disease of intestine (HCC) s/p surgery GERD (gastroesophageal reflux disease) Obes (more content not included)...[facility]08-29-2022 History of Present illness Narrative* Shiraz Bo, DO - 02/21/2022 12:46 PM EDT Images from the original note were not included. [facility]rological [facility] - Medical Spine Initial [...] gel - no benefit Therapies PT at [facility] in [place] in June 2021 - 2 times per week for 1 month, exercises, TENS, ice - no relief Ice/heat Prior spine/MSK interventions: -12/31/21 Dr. Muñoz: R GTB CSI - minimal relief for 1 day. 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 NoteHNO ID: [id number] Author: Breezy Muñoz DO Service: ? Author Type: Physician Type: Progress Notes Filed: 01/17/2022 3:48 PM Note Text: SERVICE DATE: January 17, 2022 PCP: Essie Ryan CNP, NUCLEAR WASTE PROCESS OPERATOR Patient was self-referred. Subjective Patient ID: Stacey [...] x 4 Crohn's disease without complication (HCC) [id number] Pulmonary Htn (Hcc) Obese Nirmala (Obstructive Sleep [...] hip (primary encounter diagnosis) Plan: CONSULT TO [facility] (M51.27) Lumbago-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 Plan: CONSULT TO SPINE [facility] Office Visit on 01/17/22 - CONSULT TO SPINE [facility] PLAN I recommend she go to [...] Sahu DATE: January 17, 2022 TIME: 3:46 [facility]07-25-2022 History of Present illness Narrative* Breezy Muñoz DO - 01/17/2022 3:42 PM EDT SERVICE DATE: January 17, 2022 PCP: Essie Ryan, NIURKA, NUCLEAR WASTE PROCESS OPERATOR Patient was self-referred. Subjective Patient ID: Stacey [...] x 4 Crohn's disease without complication (HCC) [id number] Pulmonary Htn (Hcc) Obese Nirmala (Obstructive Sleep [...] ABDOM HYSTERECTOMY ovaries intact TUBAL LIGATION HX 2003 FAMILY HISTORY Problem [...] (primary encounter diagnosis) Plan: CONSULT TO SPINE [facility] (M51.27) Lumbago-sciatica due to displacement of [...] 2022 TIME: 3:46 PM documented in [facility]2022 NoteHNO ID: [id number] Author: Breezy Muñoz DO Service: ? Author Type: Physician Type: Progress Notes Filed: 12/31/2021 1:10 PM Note Text: SERVICE DATE: December 31, 2021 PCP: Essie Ryan, NIURKA, NUCLEAR WASTE PROCESS OPERATOR Patient was self-referred. Subjective Patient ID: Stacey [...] x 4 Crohn's disease without complication (HCC) [id number] Pulmonary Htn (Hcc) Obese Nirmala (Obstructive Sleep [...] her right hip. She has a negative July Jose's. No other tenderness is noted about [...] trochanteric bursa Informed Consent Consent Obtained: Verbal [place] Protocol A moment to CARE was completed. (more content not included)...[facility]07-08-2022 History of Present illness Narrative* Breezy Muñoz, - 12/31/2021 12:54 PM EDT Associated Order(s): Large Joint Arthro/Inj: R greater trochanteric bursa Post-Procedure Diagnose(s): Trochanteric bursitis of right hip SERVICE DATE: December 31, 2021 PCP: Essie Ryan, NIURKA, NUCLEAR WASTE PROCESS OPERATOR Patient was self-referred. Subjective Patient ID: Stacey [...] x 4 Crohn's disease without complication (HCC) [id number] Pulmonary Htn (Hcc) Obese Nirmala (Obstructive Sleep [...] her right hip. She has a negative July Ojse's. No other tenderness is noted about her [...] trochanteric bursa Informed Consent Consent Obtained: Verbal [place] Protocol A moment to CARE was completed. [...] note. SIGNATURE: Breezy Muñoz DO PATIENT NAME: Stcaey Sahu DATE: December 31, 2021 TIME: 1:05 PM documented in this encounter[facility] Evaluation note* Encounter Date Diagnosis Assessment Notes [...] refer her to Dr. Christian with the [facility]. [employer] Other 05-25-2022 Evaluation note* Encounter Date Diagnosis [...] I will see her with those results. [employer] Other 06-21-2021 History of Past illness Narrative* Problem Noted Date Resolved Date Generalized abdominal pain 12/14/202012/16 documented as of this encounter (statuses as of 12/31/2021) [facility]06-21-2021 History of Past illness Narrative* Problem Noted Date Resolved Date Generalized abdominal pain 12/14/202012/16 documented as of this encounter (statuses as of 01/17/2022) [facility]06-21-2021 History of Past illness Narrative* Problem Noted Date Resolved Date Generalized abdominal pain 12/14/202012/16 documented as of this encounter (statuses as of 03/13/2022) [facility] No data available for this section [facility] Future Appointments Appointment Date:10/24/2022 11:30:00 AM Scheduled Provider:Jose [facility]ARCIA [facility] Evaluation + Plan note Future Appointments Appointment Date:05/29/2023 02:30:00 PM Scheduled Provider:Jose GARCIA MD [facility] Type:URO Office Visit Future Scheduled Tests Laboratory* Calprotectin, Fecal 11/24/22 * CBC w/ Auto Diff 11/24/22 * Comprehensive Metabolic Panel 11/24/22 * C-Reactive Protein 11/24/22 Radiology* CT Abdomen/Pelvis w/contrast (enterography) 11/24/22 [facility] Evaluation + Plan note Future Appointments Appointment Date:05/29/2023 02:30:00 PM Scheduled Provider:Jose GARCIA MD Location:[facility] Appointment Type:URO Office Visit Future Scheduled Tests Laboratory* Calprotectin, Fecal 11/24/22 * CBC w/ Auto Diff 11/24/22 * Comprehensive Metabolic Panel 11/24/22 * C-Reactive Protein 11/24/22 [facility] Future Appointments Appointment Date:02/02/2023 01:00:00 PM Scheduled Provider:Ignacia KHAN MD Location:[facility] Appointment Type:[facility] Follow Up Appointment Date:05/29/2023 02:30:00 PM Scheduled Provider:Jose GARCIA MD [facility] Type:URO Office Visit Future Scheduled Tests Laboratory* Calprotectin, Fecal 11/24/22 [facility] Future Appointments Appointment Date:05/29/2023 02:30:00 PM Scheduled Provider:Jose GARCIA MD Location:[facility] Appointment Type:URO Office Visit Diagnostic Tests Pending * Calprotectin, Fecal 02/02/23 [facility] Future Appointments Appointment Date:10/02/2023 03:00:00 PM Scheduled Provider:Jose GARCIA MD Location:[facility] Appointment Type:URO Office Visit [facility] evaluation note* Diagnosis Trochanteric bursitis of right hip- Primary Enthesopathy of hip region documented in this encounter [facility]No [facility] [employer] 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 documented in this encounter [facility] note* Diagnosis Tendinopathy of right gluteal region- Primary Trochanteric bursitis of right hip Enthesopathy of hip region Chronic bilateral low back pain without sciatica Lumbar spondylosis Lumbosacral spondylosis without myelopathy documented in this encounter [facility] note* Diagnosis Lumbar radiculopathy- Primary Thoracic or lumbosacral neuritis or radiculitis, unspecified documented [facility] this encounter [facility] Narrative - Reported* Type Description Date Medical History acid reflux Surgical History biopsy of intestines Surgical History hysterectomy [facility] [employer] Other Hospital Discharge instructions No data available for this section [facility] InstructionsNot on filedocumented in this encounter [facility] No data available for this section [facility] Summary Purpose Family History No Family History Records FoundNo Family History Records FoundNo Family History Records FoundNo Family History Records FoundNo Family History Records Found No data available for this section No Family History Records FoundNo Family History Records FoundNo Family History Records Found Advance Directives No Advanced Directives Records FoundDocuments on File Type Date Recorded Patient Picture Enlarger Expl anation Advance Directive(s) 12/12/2020 8:14 PM Documents on File Type Date Recorded Patient Picture Enlarger Expl anation Advance Directive(s) 12/12/2020 8:14 PM Reason for Referral Specialty Diagnoses / Procedures Referred By Contac t Referred To Contact Diagnoses Trochanteric bursitis of right hip Tendinopathy of right gluteal region Chronic bilateral low back pain without sciatica Lumbar spondylosis Procedures CONSULT TO CHIROPRACTOR OFFICE/OUTPATIENT [facility] 60-74 MINUTES Shiraz Bo, DO [address] [place] [address] Referral ID Status Reason Start Date Expiration Date Visits Requested Visits Authorized [id number] Pending Review PCP Requested Referral 02/21/2022 02/21/2023 1 1 Specialty Diagnoses / Procedures Referred By Contac t Referred To Contact Sports Medicine Diagnoses Trochanteric bursitis of right hip Tendinopathy of right gluteal region Procedures CONSULT TO SPORTS MEDICINE OFFICE/OUTPATIENT [facility] 60-74 MINUTES Shiraz Bo, DO [address] [place] [address] Referral ID Status Reason Start Date Expiration Date Visits Requested Visits Authorized [id number] Authorized PCP Requested Referral 02/21/2022 02/21/2023 1 1 Specialty Diagnoses / Procedures Referred By Contac t Referred To Contact [facility] Diagnoses Trochanteric bursitis of right hip Lumbago-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 Procedures CONSULT TO SPINE [facility] OFFICE/OUTPATIENT [facility] 60-74 MINUTES Breezy Muñoz, DO [facility] [address] [place] [address] Referral ID Status Reason Start Date Expiration Date Visits Requested Visits Authorized [id number] Authorized PCP Requested Referral 01/17/2022 01/17/2023 1 1 Reason evaluate and treat. Gluteal tendon tear vs greater trochanteric bursitis Please refer to Bang Christian MD, Orthopaedic Surgery, [facility] Diagnosis 1 Trochanteric bursiti s, right hip (M70.61) Referral Organization [facility] Referring Provider First Name Alexis Referring Provider Last Name Dany ARDON Referring Provider Specialty Orthopedic Surgery Referred Organization [facility] Referred Address [address],[place], [place],[address] Referred Provider Specialty ORTHOPEDIC S URGEON Referral [...] section and content) DATE CREATED AUTHOR 12/19/2017 [facility] DATE CREATED AUTHOR AUTHOR'S ORGANIZ ATION 12/08/2021 [facility] DATE CREATED AUTHOR AUTHOR'S ORGANIZ ATION 03/26/2022 [facility] DATE CREATED AUTHOR AUTHOR'S ORGANIZ ATION 12/04/2022 [facility] DATE CREATED AUTHOR AUTHOR'S ORGANIZ ATION 12/04/2022 [facility] DATE CREATED AUTHOR AUTHOR'S ORGANIZ ATION 07/02/2023 [facility] DATE CREATED AUTHOR AUTHOR'S ORGANIZ ATION 07/16/2023 [facility] DATE CREATED AUTHOR AUTHOR'S ORGANIZ ATION 08/02/2023 [facility] REASON FOR VISIT (unrecogniz ed section and content) Reason Comments New Specialty Diagnoses / Procedures Referred By Contac t Referred To Contact Orthopedics / ORTHOPAEDIC SURGERY Diagnoses Greater Trochanteric Bursitis right hip vs Gluteal Tendon tear *OUTSIDE IMG PT TO BRING Procedures LANA NEW NO XRAY Alexis Saenz II, MD [address] [facility] [place] [address] Breezy Muñoz, [address] [address] Referral ID Status Reason Start Date Expiration Date Visits Requested Visits Authorized [id number] Authorized Financial Clearance Not Required 12/24/2021 01/23/2022 99 99 Reason Comments Follow Up Reason Comments New Patient Evaluation Lower back pain/R ight side sciatica Specialty Diagnoses / Procedures Referred By Wan gamboa Referred To Contact [facility] Diagnoses Trochanteric bursitis of right hip Lumbago-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 Procedures CONSULT TO [facility] OFFICE/OUTPATIENT NEW [facility] 60-74 MINUTES Breezy Muñoz, [facility] [address] [place] [address] Referral ID Status Reason Start Date Expiration Date V isits Requested Visits Authorized [id number] Closed PCP Requested Referral 01/17/2022 01/17/2023 1 1 Reason Comments Hip Pain Source Comments (unrecognize d section and content) In the event this informatio n is protected by the Federal Confidentiality of Alcohol and Drug Abuse Patient Records regulations: The Federal rules restrict any use of the information to criminally investigate or prosecute any alcohol or drug abuse patient.[facility] the event this information is protected by the Federal Confidentiality of Alcohol and Drug Abuse Patient Records regulations: The Federal rules restrict any use of the information to criminally investigate or prosecute any alcohol or drug abuse patient.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 Relationship Specialty Start Date End Date Essie Ryan CNP PCP - General Family Practice 07/22/16 Adán Torres DO Obstetrics 07/22/16 Alexis Saenz II, MD [address] [place] [address] Referring Orthopedics 12/13/21 Electric Frying 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 [facility]. provides no warranty or guarantee of the accuracy or completeness of information in this document.
--- NOTE | 2023-08-16 07:27 | MM_ITS ---
Patient Name: GAMAL FIGUEROA MR#: [id number] : 1975 Exam Date: 08/16/2023 Ordering Doctor: NIURKA Ryan CNP RADIOLOGY REPORT PROCEDURE: MM TOMOSYNTHESIS SCREENING BI COMPARISON: MG MAMM SCREEN 3D GRACIE CAD, 02/09/2022. MG MAMM SCREEN 3D GRACIE CAD, 09/17/2020. MG MAMM SCREEN GRACIE W CAD, 12/25/2018. INDICATIONS: Screening Calculator Name NCI Breast Cancer Risk Assessment Tool 5 Year Breast Cancer Risk 1.80% Lifetime Breast Cancer Risk 18.20% Personal Breast Cancer No Personal Ovarian Cancer No Treatments None Family Cancers Aunt-maternal with breast cancer at age ~40; Aunt-maternal with breast cancer at age 60; Aunt-maternal with breast cancer at age 60; Mother with breast cancer at age 65; Father with throat cancer at age 73; Aunt-paternal with colon cancer at age 55. LOCATION: [facility] BREAST COMPOSITION: Scattered areas fibroglandular density. FINDINGS: DIAGNOSTIC CATEGORY 2--BENIGN FINDING: RIGHT BREAST: No significant suspicious finding. No significant change has occurred. LEFT BREAST: No significant suspicious finding. Scattered benign-appearing lymph nodes are present. No significant change has occurred. RECOMMENDATIONS: ROUTINE MAMMOGRAM AND CLINICAL EVALUATION IN 12 MONTHS. PLEASE NOTE: A NORMAL MAMMOGRAM DOES NOT EXCLUDE THE POSSIBILITY OF BREAST CANCER. A CLINICALLY SUSPICIOUS PALPABLE LUMP SHOULD BE BIOPSIED. Dictated by: Dawson Gross M.D. on 08/17/2023 at 07:34 Approved by: Dawson Gross M.D. on 08/17/2023 at 07:38
--- NOTE | 2023-08-16 07:27 | CT_ITS ---
The [address] [address] Patient Name: GAMAL FIGUEROA MRN: [id number] date: 1975 Sex: F Assigned Patient Location: [facility] Current Patient Location: [facility] Accession/Order Number: [id number] Exam Date: 08/16/2023 07:40 Report Date: 08/16/2023 08:46 At the request of: PAULINE BERNARDO Procedure: CT sinus wo con EXAMINATION: CT sinus wo con HISTORY: Chronic Sinusitis COMPARISON: No relevant comparison available. TECHNIQUE: Axial and Coronal CT images were created without and/or with IV contrast as indicated by examination type. Dose reduction techniques were achieved by using automated exposure control and/or adjustment of mA and/or kV according to patient size and/or use of iterative reconstruction technique. FINDINGS: MAXILLARY SINUSES: Mild mucosal thickening bilaterally. Occluded ostiomeatal complex bilaterally. Mucosal thickening. No Ghada cells. ETHMOID SINUSES: Scattered areas of mild mucosal thickening. SPHENOID SINUSES: Minimal mucosal thickening. Retained secretions. FRONTAL SINUSES: Minimal mucosal thickening. Frontal recesses are patent. NASAL FOSSA: 4 mm rightward deviation of the nasal septum. Kaycee bullosa of right middle turbinate. OTHER: Negative. Limited views of the skull base and orbits are unremarkable. CT/CT sinus wo con IMPRESSION: 1. Multifocal mild chronic sinusitis. 2. No fluid or soft tissue within the middle ear bilaterally. Electronically authenticated by: PREET RODRIGEZ Date: 08/16/2023 08:46
== END 2023-08-16 07:24 | disposition home or self-care (01) ==
LOC: MAMMO 07:23
PROVIDERS: PCP Nurse Practitioner; Visit Provider Nurse Practitioner
DX: J32.8 Other chronic sinusitis (principal); Z12.31 Encounter for screening mammogram for malignant neoplasm of breast; Z80.3 Family history of malignant neoplasm of breast; Z80.0 Family history of malignant neoplasm of digestive organs; Z80.8 Family history of malignant neoplasm of other organs or systems
CPT/HCPCS: 70486; 77063; 77067

== ENCOUNTER 2023-08-29 09:50 | Outpatient (OUT) | payer OTHER, SELFPAY ==
--- OUTSIDE RECORDS SUMMARY | 2023-08-29 09:54 | XMS_ITS | CCD ---
Author Name Unknown Address [address] [place] [address] Organization [facility] Care Team Providers Care Operating System Programmer Name Role Phone PHYSICIAN, DEFAULT Unavailable Unavailable PHYSICIAN, DEFAULT Unavailable Unavailable [place], ESSIE Unavailable Unavailable PHYSICIAN, DEFAULT Unavailable Unavailable PHYSICIAN, DEFAULT Unavailable Unavailable AICHJACOB, ESSIE Unavailable Unavailable PHYSICIAN, DEFAULT Unavailable Unavailable PHYSICIAN, DEFAULT Unavailable Unavailable ESSIE RYAN Unavailable Unavailable Alexis Saenz II Unavailable Essie Ryan CNP Primary Care Provider Adán Torres Unavailable [phone] Dany ARDON MD, Robert M Unavailable Adán Torres DO Unavailable [phone] ESSIE RYAN Primary Care Physician Essie Ryan CNP Primary Care Provider Adán Torres DO Unavailable Dany ARDON MD, Robert M Unavailable ESSIE RYAN Primary Care Unavailable SHIRAZ BO Attending Unavailable BREEZY MUÑOZ Referring Unavailable ESSIE RYAN Primary Care Unavailable BREEZY MUÑOZ Attending Unavailable BREEZY MUÑOZ Attending Unavailable ESSIE RYAN Primary Care Unavailable CAN VALERA Attending Unavailable CAN VALERA Consulting Unavailable NIURKA RYAN ESSIE Primary Care Unavailable CAN VALERA Admitting Unavailable ANDREW López, DR MARKO Stafford Admitting Unavailable MORALES ., DR MARKO Stafford Attending Unavailable AICHHOLZ, HUMAN RESOURCES BENEFITS COORDINATOR ESSIE Primary Care Unavailable DELANEY ., ARTURO Consulting Unavailable MORALES ., DR MARKO Stafford Attending Unavailable MORALES ., DR MARKO Stafford Consulting Unavailable AICHHOLZ, HUMAN RESOURCES BENEFITS COORDINATOR ESSIE Primary Care Unavailable MORALES ., DR MARKO Stafford Admitting Unavailable APLING, SHARONA B Attending Unavailable APLING, SHARONA B Consulting Unavailable APLING, SHARONA B Admitting Unavailable AICHHOLZ, HUMAN RESOURCES BENEFITS COORDINATOR ESSIE Primary Care Unavailable PAULETTE PHIPPS Unavailable AICHHOLZ, HUMAN RESOURCES BENEFITS COORDINATOR ESSIE Primary Care Unavailable GARCIA ., DR BAILEY Attending Unavailable GARCIA ., DR BAILEY Consulting Unavailable GARCIA ., DR BALIEY Admitting Unavailable WEST, DR PAULETTE León Consulting Unavailable MORALES ., DR MARKO Stafford Admitting Unavailable MORALES ., DR MARKO Stafford Attending Unavailable MORALES ., DR MARKO Stafford Consulting Unavailable AICHOLZ, HUMAN RESOURCES BENEFITS COORDINATOR ESSIE Primary Care Unavailable DELANEY ., ARTURO Consulting Unavailable MORALES ., DR MARKO Stafford Admitting Unavailable MORALES ., DR MARKO Stafford Attending Unavailable AICHHOLZ, HUMAN RESOURCES BENEFITS COORDINATOR ESSIE Primary Care Unavailable MELISSA ., DR RASMUSSEN Attending Unavailable AICHHOLZ, HUMAN RESOURCES BENEFITS COORDINATOR ESSIE Primary Care Unavailable MELISSA ., DR RASMUSSEN Admitting Unavailable WEST, DR PAULETTE León Consulting Unavailable MELISSA ., DR RASMUSSEN Consulting Unavailable AICHHOLZ, HUMAN RESOURCES BENEFITS COORDINATOR ESSIE Primary Care Unavailable GARCIA ., DR BAILEY Admitting Unavailable GARCIA ., DR BAILEY Attending Unavailable GARCIA ., DR BAILEY Consulting Unavailable ZIEBER, DR PREET Palafox Consulting Unavailable TIMMIS, DR RED Attending Unavailable TIMMIS, DR RED Consulting Unavailable TIMMIS, DR RED Admitting Unavailable AICHHOLZ, HUMAN RESOURCES BENEFITS COORDINATOR ESSIE Primary Care Unavailable ZIEBER, DR PREET Palafox Consulting Unavailable TIMMIS, DR RED Attending Unavailable TIMMIS, DR RED Consulting Unavailable TIMMIS, DR RED Admitting Unavailable AICHHOLZ, HUMAN RESOURCES BENEFITS COORDINATOR ESSIE Primary Care Unavailable ZIEBER, DR PREET Palafox Consulting Unavailable TIMMIS, DR RED Attending Unavailable TIMMIS, DR RED Consulting Unavailable AICHHOLZ, HUMAN RESOURCES BENEFITS COORDINATOR ESSIE Primary Care Unavailable TIMMIS, DR RED Admitting Unavailable WEST, DR PAULETTE León Consulting Unavailable AICHHOLZ, HUMAN RESOURCES BENEFITS COORDINATOR ESSIE Primary Care Unavailable GARCIA ., DR BAILEY Attending Unavailable GARCIA ., DR BAILEY Consulting Unavailable GARCIA ., DR BAILEY Admitting Unavailable ZIEBER, DR PREET Palafox Consulting Unavailable LAKSHMIPATHY ., NARANTONIO Attending Marleni vailable AICHHOLZ, HUMAN RESOURCES BENEFITS COORDINATOR ESSIE Primary Care Unavailable LAKSHMIPATHY ., NARANTONIO Admitting Marleni vailable MORALES ., DR MARKO Stafford Admitting Unavailable MORALES ., DR MARKO Stafford Attending Unavailable MORALES ., DR MARKO Stafford Consulting Unavailable AICHHOLZ, HUMAN RESOURCES BENEFITS COORDINATOR ESSIE Primary Care Unavailable DELANEY ., ARTURO Consulting Unavailable AICHHOLZ, HUMAN RESOURCES BENEFITS COORDINATOR ESSIE Primary Care Unavailable WEST, DR PAULETTE León Consulting Unavailable GARCIA ., DR BAILEY Attending Unavailable GARCIA ., DR BAILEY Admitting Unavailable AICHHOLZ, HUMAN RESOURCES BENEFITS COORDINATOR ESSIE Consulting Unavailable MELISSA ., DR RASMUSSEN Attending Unavailable MELISSA ., DR RASMUSSEN Consulting Unavailable AICHHOLZ, HUMAN RESOURCES BENEFITS COORDINATOR ESSIE Primary Care Unavailable MELISSA ., DR RASMUSSEN Admitting Unavailable AICHHOLZ, HUMAN RESOURCES BENEFITS COORDINATOR ESSIE Primary Care Unavailable AICHHOLZ, HUMAN RESOURCES BENEFITS COORDINATOR ESSIE Attending Unavailable AICHHOLZ, HUMAN RESOURCES BENEFITS COORDINATOR ESSIE Consulting Unavailable AICHHOLZ, HUMAN RESOURCES BENEFITS COORDINATOR ESSIE Admitting Unavailable DELANEY ., ARTURO Admitting Unavailable DELANEY ., ARTURO Attending Unavailable AICHHOLZ, HUMAN RESOURCES BENEFITS COORDINATOR ESSIE Primary Care Unavailable ZIEBER, DR PREET Palafox Consulting Unavailable DELANEY ., ARTURO Consulting Unavailable TIMMIS, DR RED Attending Unavailable TIMMIS, DR RED Consulting Unavailable TIMMIS, DR RED Admitting Unavailable AICHHOLZ, HUMAN RESOURCES BENEFITS COORDINATOR ESSIE Primary Care Unavailable ZIEBER, DR PREET Palafox Consulting Unavailable DIAB ., EDNA Attending Unavailable DIAB ., EDNA Admitting Unavailable MARKER ., DR JIMÉNEZ Consulting Unavailable AICHHOLZ, HUMAN RESOURCES BENEFITS COORDINATOR ESSIE Primary Care Unavailable DIAB ., EDNA Consulting Unavailable OWOYELE, MISTY Consulting Unavailable AICHHOLZ, HUMAN RESOURCES BENEFITS COORDINATOR ESSIE Primary Care Unavailable AICHHOLZ, HUMAN RESOURCES BENEFITS COORDINATOR ESSIE Attending Unavailable AICHHOLZ, HUMAN RESOURCES BENEFITS COORDINATOR ESSIE Consulting Unavailable AICHHOLZ, HUMAN RESOURCES BENEFITS COORDINATOR ESSIE Admitting Unavailable ZIEBGEORGE, DR PREET Palafox Consulting Unavailable MORALES ., DR MARKO Stafford Attending Unavailable MORALES ., DR MARKO Stafford Admitting Unavailable AICHHOLZ, HUMAN RESOURCES BENEFITS COORDINATOR ESSIE Primary Care Unavailable MISC, DR MCCARTHY Referring Unavailable GARCIA ., DR BAILEY Consulting Unavailable MORALES ., DR MARKO Stafford Consulting Unavailable MORAIMACAN VAZQUEZ Attending Unavailable Aichholz NARROW [employer]AB[employer]IC CALENDERER-HUMAN RESOURCES BENEFITS COORDINATOR, Essie J Primary Care Provider EVANS ANDERSON Attending Unavailable ESSIE RYAN Referring Unavailable ESSIE RYAN Primary Care Unavailable Block, Juliana Unavailable SALAM, Beth Referring Unavailable SALAM, Beth Admitting Unavailable SALAM, Beth Attending Unavailable SALAM, Beth Admitting Unavailable SALAM, Beth Attending Unavailable SALAM, Beth Admitting Unavailable SALAM, Beth Attending Unavailable SALAM, Beth Admitting Unavailable SALAM, Beth Attending Unavailable SALAM, Beth Attending Unavailable FAWWAD, LUNDBERG Referring Unavailable SALAM, Beth Attending Unavailable SALAM, Beth Attending Unavailable SALAM, Beth Referring Unavailable JOSE, Jose Palafox Attending Unavailable ANGELICA, LESLIE Medina Attending Unavailable JOSE, Jose Palafox Attending Unavailable AZ, ESSIE Attending Unavailable NEDA CACERES Attending Unavailable AZ, ESSIE Attending Unavailable MARY DANIELS Attending Unavailable AZ, ESSIE Referring Unavailable Allergies Allergy Classification Reported Allergen(s) Allergy Type Date of Onset Reaction(s) Facility (5 sources) Penicillins; Translations: [PENICILLINS] Drug allergy (disorder) 09-21-2011 [facility] Repository (3 sources) Penicillin V Drug Allergy Fever REM 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 History of - penicillin allergy (context-depende nt category); Translations: [H/O: penicillin allergy] Drug allergy [facility] (1 source) Penicillin Drug Allergy Fever [facility] [employer] Other Medications Current Medications Medication Drug Class(es) [...] by mouth once daily. polyethylene glycol 3350 239190 mg / potassium chloride 1480 mg / sodium bicarbonate 5720 mg / sodium chloride 60026 mg powder for oral solution (3 sources) Osmotic Laxative Start: 11-28-2022 NuLYTELY [place] oral powder for reconstitution See Instructions, 1 EA, Refill(s) 0, See physician instructions prior to procedure., [id number], 155, cm, 11/24/22 13:47:00 EDT, Height/Length Dosing, [...] on above: Take 2 tablets by mo [facility] every 6 hours as needed. 5 ml [...] procedure, # 2 tab(s), Refills(s) 0, [facility]: [id number], 155, cm, 03/03/22 15:04:00 EDT, Height/Length Dosing, [...] ity Lab Report[facility] 08-01-2023 Lab Reports [id number]#1.00TIFF Normal [facility] Lab Reportson 07-31-2023 Lab Reports [id number]#1.00TIFF Normal [facility] Report[facility] 07-28-2023 Lab Reports [id number]#1.00TIFF Normal [facility] Lab Reports [id number]#1.00TIFF [facility] Lab Reportson 07-26-2023 Lab Reports [id number]#1.00TIFF Normal [facility] COVID/FLU/RSV RT-PCRon 07-11 SARS-CoV-2 (COVID-19) RNA IZAIAH+probe Ql (Unsp spec) Positive [employer] Other COVID/FLU/RSV RT-PCR Negative [employer] Other Ambulatory Visit Summaryon 1 07-30-2022 Ambulatory Visit Summary STACEY SAHU :1975 Visit Date:05/29/2023 Ambulatory Visit Instructions Your Diagnosis Kidney stones Gross hematuria Tests Performed Urnls Dip Stick Auto w/o Microscopy POC 30362 Your Care Team Attending Physician - JOSE [...] Follow Up with JOSE FELIX, Jose Palafox, RANJEETL When: Comments: 4 mos w/ metabolic w/u Where: [facility] [address], [place] [address]- [phone] Medications What How Much When Instructions Unchanged [...] Urnls Dip Stick Auto w/o Microscopy POC 18497 (05/29/2023) Bilirubin Urine Dipstick - Negative Blood Urine Dipstick - 3+ Large Glucose Urine Dipstick - Negative Ketones Urine Dipstick - Negative Leukocytes Urine Dipstick - Negative Nitrite Urine Dipstick - Negative Protein Urine Dipstick - Negative Specific [place] Urine Dipstick - >=1.030 Urine Appearance Urine [...] ? Santy (more content not included)... Normal [facility] Patient Educationon 05-29-20 Patient Education Urology Kidney [...] these instructions at home: Medicines ? Take daod-amd-heamswz and prescription medicines only as told by [...] provider. Document Revised: 02/14/2022 Document Reviewed: 02/14/2022 [employer] Patient Education ? 2022 [employer]. [facility] Urology Office/Clinic Noteon 05-29-2023 Urology Office/Clinic Note [...] stones id'd. CT AP w con 12/06/22 [facility] [place] 5mm RLP stone and 2mm LLP stone. Mild fulness at R renal pelvis with tapering at [facility]. KUB 01/05/23 [facility] [place] 4mm renal stone in RLP. KUB [...] [facility] [address], [place] [address] [phone] Additional Instructions: 4 mos w/ metabolic w/u Patient Education Kidney Stones, Yjrl-wq-Gtyt I, Imani Renae, personally scribed for Dr. [...] Dipstick: Negative (more content not included)... Normal [facility] Comment on above: Result Comment: Elec tronically [...] with voice recognition artificial intelligence software, specifically [employer], [employer] and or [employer] Substitutions may have occurred due to the inherent limitations of voice recognition and artificial intelligence software. ATTESTATION: Documentation services were performed after patient or guardian consented to allow [employer] to record this visit. DELVIN medical authorization specialist and provider reviewed before signing. DELVIN: [...] H/O: penic (more content not included)... Normal [facility] Comment on above: Result Comment: Elec tronically Signed By: Ana Rosa Iglesias\.br\Date and Time Signed: 02/02/23 15:48 EDT\.br\Electronically Co-Signed By: Ignacia KHAN MD\.br\Date and Time Co-Signed: 02/06/23 14:00 EDT Calprotectin, Fecalon 2022 Calprotectin (Stl) [Mass/Mass] 87 mcg/gm Invalid Interpretation Code 0-120 [facility] Comment on above: Result Comment: Conc entration Interpretation Follow-Up < 5 - 50 ug/g Normal None >50 -120 ug/g Borderline Re-evaluate in 4-6 weeks >120 ug/g Abnormal Repeat as clinically indicated Performed at: [facility] [address] [id number] MD Kody Hayes Performed By: #### 1 [id number] ####[facility] [address] [place] [address] Ambulatory Visit Summaryon 0 02-02-2023 Ambulatory Visit [...] FELIX, Jose Palafox Where: [facility] Normal [facility] Auto Diffon 02-01-2023 Basophils/100 WBC (Bld) 2.7 % High 0.0-2.0 [facility] Comment on above: Order Comment: Order Added by Discern Expert. Performed By: #### 2 255325, 5674534, 3270749, 79405378, 2673093 ####[facility] [address] [place] [address] Basophils/Leukocyte s Auto (Bld) [Pure # fraction] 0.2 E9/L Normal 0.0-0.2 [facility] Comment on above: Order Comment: Order Added by Discern Expert. Performed By: #### 2 827162, 3457449, 5307030, 54395367, 6505177 ####[facility] [address] [place] [address] Eosinophils/100 WBC (Bld) 8.5 % High 0.0-8.0 [facility] Comment on above: Order Comment: Order Added by Discern Expert. Performed By: #### 2 176041, 2674702, 7304737, 95101349, 0160864 ####[address] [place] [address] Eosinophils/Leukocy karina Auto (Bld) [Pure # fraction] 0.7 E9/L High 0.0-0.5 [facility] Comment on above: Order Comment: Order Added by Discern Expert. Performed By: #### 2 364045, 2423677, 0959607, 87170359, 0378295 ####[address] [address] Lymphocytes/100 WBC (Bld) 34.8 % Normal 14.0-50.0 [facility] Comment on above: Order Comment: Order Added by Discern Expert. Performed By: #### 2 462101, 0410053, 1128379, 64355881, 9736223 ####[address] [address] Lymphocytes/Leukocy karina Auto (Bld) [Pure # fraction] 2.8 E9/L Normal 1.0-4.0 [facility] Comment on above: Order Comment: Order Added by Discern Expert. Performed By: #### 2 743481, 7004747, 9267759, 56289334, 6053631 ####[address] [address] Monocytes/100 WBC (Bld) 9.4 % Normal 4.0-14.0 [facility] Comment on above: Order Comment: Order Added by Discern Expert. Performed By: #### 2 853081, 3653034, 4853643, 31566829, 4696528 ####[address] [address] Monocytes/Leukocyte s Auto (Bld) [Pure # fraction] 0.8 E9/L Normal 0.2-1.0 [facility] Comment on above: Order Comment: Order Added by Discern Expert. Performed By: #### 2 176940, 1382372, 6251473, 20310160, 0853590 ####[address] [address] Neutrophils/100 WBC (Bld) 44.6 % Normal 36.0-75.0 [facility] Comment on above: Order Comment: Order Added by Discern Expert. Performed By: #### 2 815065, 1871361, 2297590, 02174089, 8026594 ####[address] [place] [address] Neutrophils/Leukocy karina Auto (Bld) [Pure # fraction] 3.5 E9/L Normal 2.0-7.5 [facility] Comment on above: Order Comment: Order Added by Discern Expert. Performed By: #### 2 337558, 7359755, 0716550, 27530603, 7089902 ####[address] [address] CBC w/ Auto Diffon 3 Erythrocyte distribution width (RBC) [Ratio] 13.6 % Normal 10.9-14.2 [facility] Comment on above: Performed By: #### 2 950975, 7002933, 9746553, 68916081, 2273578 ####[address] [address] Hematocrit (Bld) [Volume fraction] 39.5 % Normal 34.0-46.0 [facility] Comment on above: Performed By: #### 2 572228, 4287764, 1299536, 81109908, 5209460 ####[address] [address] Hemoglobin (Bld) [Mass/Vol] 13.3 g/dL Normal 12.0-16.0 [facility] Comment on above: Performed By: #### 2 469381, 8181308, 9100632, 46117859, 1207272 ####[address] [address] MCH (RBC) [Entitic mass] 29.1 pg Normal 27.0-34.0 [facility] Comment on above: Performed By: #### 2 631905, 3131502, 9596733, 51594620, 0597250 ####[facility] [address] [place] [address] MCHC (RBC) [Mass/Vol] 33.7 g/dL Normal 31.4-36.0 [facility] Comment on above: Performed By: #### 2 443104, 6281243, 4488223, 30670970, 4942195 ####[address] [place] [address] MCV (RBC) [Entitic vol] 86.4 fL Normal 80.0-100.0 [facility] Comment on above: Performed By: #### 2 900099, 1184108, 1367386, 36982751, 5026101 ####[place] [address] Platelet mean volume (Bld) [Entitic vol] 8.9 fL Normal 6.4-10.8 [facility] Comment on above: Performed By: #### 2 728084, 1039299, 7566760, 07216817, 2921291 ####[place] [address] Platelets (Bld) [#/Vol] 274.0 E9/L Normal 150.0-500.0 [facility] Comment on above: Performed By: #### 2 827039, 9278241, 3734440, 60922707, 4633034 ####[place] [address] RBC (Bld) [#/Vol] 4.6 E12/L Normal 4.3-5.9 [facility] Comment on above: Performed By: #### 2 429269, 0934504, 4231763, 03234249, 5750479 ####[address] [address] WBC corrected for nucl RBC Auto (Bld) [#/Vol] 8.0 E9/L Normal 4.0-11.0 [facility] Comment on above: Performed By: #### 2 976332, 6589672, 6645939, 28977578, 9451201 ####[facility] [address] [place] [address] CHEMISTRYOrdered By: SYSTEM SYSTEM on 02-01-2023 Albumin [...] g/dL Normal 6.0 - 7.8 gm/dL [facility] Remisol Sodium [Moles/Vol] 139 mmol/L Normal 135 - 145 mmol/L [facility] Remisol Urea nitrogen [Mass/Vol] 15 mg/dL Normal 5 - 21 mg/dL [facility] Remisol Urea nitrogen/Creatinine [Mass ratio] 17 mg/mg Normal 10 - 20 [facility] Remisol CMPon 02-01-2023 Albumin [Mass/Vol] 4.0 g/dL Normal 3.3-5.0 [facility] Comment on above: Performed By: #### 2 060363, 0529908, 3113907, 99599980, 5550153 ####[facility] [address] [place] [address] Albumin/Globulin (S) [Mass conc ratio] 1.2 Normal 1.1-2.2 [facility] Comment on above: Performed By: #### 2 709665, 2300119, 4728572, 79070321, 8802306 ####[facility] [address] [place] [address] ALP [Catalytic activity/Vol] 53 Int._Unit/L Normal 21-98 [facility] Comment on above: Performed By: #### 2 523301, 0530033, 8541160, 86268458, 1036524 ####[facility] [address] [place] [address] ALT No additional P-5'-P [Catalytic activity/Vol] 18 Int._Unit/L Normal 6-46 [facility] Comment on above: Performed By: #### 2 513964, 3129714, 5166469, 28009463, 2415271 ####[facility] [address] [place] [address] Anion gap [Moles/Vol] 13 mmol/L Normal 6-16 [facility] Comment on above: Performed By: #### 2 504355, 7512903, 5280131, 54762676, 1584087 ####[facility] [address] [place] [address] AST [Catalytic activity/Vol] 18 Int._Unit/L Normal 5-43 [facility] Comment on above: Performed By: #### 2 685678, 4897229, 0625794, 65877473, 8875623 ####[facility] [address] [place] [address] Bilirubin [Mass/Vol] 0.4 mg/dL Normal 0.0-1.1 [facility] Comment on above: Performed By: #### 2 269934, 5631518, 8618198, 62683016, 8253573 ####[facility] [address] [place] [address] Calcium [Mass/Vol] 9.1 mg/dL Normal 8.9-11.1 [facility] Comment on above: Performed By: #### 2 407562, 2869180, 9261939, 56741634, 6732901 ####[facility] [address] [place] [address] Chloride [Moles/Vol] 106 mmol/L Normal 101-111 [facility] Comment on above: Performed By: #### 2 683199, 5948531, 3743577, 88506480, 6841491 ####[facility] [address] [place] [address] CO2 [Moles/Vol] 24 mmol/L Normal 21-31 [facility] Comment on above: Performed By: #### 2 045964, 0185925, 2622022, 64790143, 1298144 ####[facility] [address] [place] [address] Creatinine [Mass/Vol] 0.9 mg/dL Normal 0.5-1.3 [facility] Comment on above: Performed By: #### 2 780041, 3043228, 5817657, 84105370, 4068722 ####[facility] [address] [place] [address] Globulin (S) [Mass/Vol] 3.2 g/dL Normal 1.4-4.0 [facility] Comment on above: Performed By: #### 2 686280, 7989901, 8299880, 38248811, 2728708 ####[facility] [address] [place] [facility] [place] [address] Glucose [Mass/Vol] 99 mg/dL Normal 55-199 [facility] Comment on above: Result Comment: If t his glucose result represents a fasting glucose, interpretation should refer to the following reference range: 55-99 mg/dL Performed By: #### 2 951154, 7094462, 7102105, 56290230, 7517429 ####[facility] [address] [place] [facility] [place] [address] Potassium [Moles/Vol] 3.9 mmol/L Normal 3.5-5.3 [facility] Comment on above: Performed By: #### 2 626546, 7583338, 0126307, 34272099, 2854355 ####[facility] [address] [place] [facility] [place] [address] Protein [Mass/Vol] 7.2 g/dL Normal 6.0-7.8 [facility] Comment on above: Performed By: #### 2 802467, 9431970, 0815568, 56597236, 5716132 ####[facility] [address] [place] [address] Sodium [Moles/Vol] 139 mmol/L Normal 135-145 [facility] Comment on above: Performed By: #### 2 273115, 2580372, 5565194, 92751293, 3241088 ####[facility] [address] [place] [address] Urea nitrogen [Mass/Vol] 15 mg/dL Normal 5-21 [facility] Comment on above: Performed By: #### 2 570623, 4814146, 7474667, 70840439, 3213192 ####[facility] [address] [place] [address] Urea nitrogen/Creatinine [Mass ratio] 17 No Units Normal 10-20 [facility] Comment on above: Performed By: #### 2 255209, 2117756, 4889045, 28686311, 9715031 ####[facility] [address] [place] [address] CRPon 02-01-2023 CRP [Mass/Vol] 0.7 mg/dL Normal <=1.9 [facility] Comment on above: Performed By: #### 2 314770, 7122301, 6509047, 69068174, 0337424 ####[facility] [address] [place] [address] Consent for Treatmenton Consent for Treatment [id number]#[id number]:127 Normal [facility] HEMATOLOGYOrdered By: SYSTEM SYSTEM on 02-01-2023 Basophils/100 [...] 3.5 E9/L Normal 2.0 - 7.5 E9/L FT HemeAutoSS HEMATOLOGYOrdered By: Katerin Velazquez on 02-01-2023 [...] [Vol rate/Area] 80 mL/min/1.73 m2 Normal >=59 [facility] Comment on above: Order Comment: Order added by Discern Expert. Result Comment: [employer] gail kidney disease could be indicated at eGFR's of less than 60 mL/min/1.73m2. Kidney failure is indicated at less than 15 mL/min/1.73m2. Performed By: #### 2 540961, 5719975, 8153694, 41403377, 4878955 ####[facility] [address] [place] [address] XR Abdomen 1 Viewon 01-07-20 XR Abdomen 1 View Exam Date/Time: 01/05/2023 [...] mGy = na DAP = na Normal [facility] Consent for Treatmenton 12-24 Consent for Treatment [id number]#1.00CD:127 Normal [facility] Outside Colonoscopyon 2022 Outside Colonoscopy [id number]#2.00CD:127 Normal [facility] CT Abdomen/Pelvis w/contrast (enterography)on 12-09-2022 CT Abdomen/Pelvis [...] Oral contrast amount in ml's: 1450 Normal [facility] Consent for Treatmenton 11-24 Consent for Treatment [id number]#1.00CD:127 Normal [facility] Gastroenterology Office/Clin ic Noteon 11-29-2022 Gastroenterology Office/Clinic [...] after patient or guardian consented to allow [employer] to record this visit. DELVIN medical authorization specialist and provider reviewed before signing. DELVIN: [...] - Demetri (more content not included)... Normal [facility] Comment on above: Result Comment: Elec tronically Signed By: Jesse Bray\.br\Date and Time Signed: 11/24/22 16:24 EDT\.br\Electronically Co-Signed By: Ignacia KHAN MD\.br\Date and Time Co-Signed: 11/29/22 21:07 EDT Consent for Procedure/Surger yon 11-28-2022 Consent for Procedure/Surgery [id number]#1.00CD:127 [facility] Pre-Certification Formon Pre-Certification Form [id number]#1.00CD:127 [facility] Ambulatory Visit Summaryon 0 11-24-2022 Ambulatory Visit [...] FELIX, Jose Palafox Where: [facility] Invalid Interpretation Code Abdominal pain, Print Label By Order Location\.br\ CBC w/ Auto Diff, Blood, Routine collect, 11/24/22, Order for future visit, Lab Collect, Crohn's disease, small intestine [facility] 36on 11-23-2022 36 Please let her know her ECHO was normal. I updated my note with clearance for her upcoming surgery. Please send to surgeons office. She should follow-up with an attending in 3 months or sooner if needed. Thanks Normal [facility] Telephoneon 11-23-2022 Telephone [id number] Stacey Sahu 1975 F Date Provider Department Center 11/23/2022 [address] [facility] Family History Problem Relation Age of Onset Coronary artery disease Father Family Status - Relation Status Age at Father Normal [facility] ECHOCARDIO M/2D COMPLETEon 0 11-22-2022 ECHOCARDIO M/2D COMPLETE Patient: STACEY SAHU. Exam Date: 11/22/2022 : 1975 Gender:F Ordering : [facility] Admission #: [id number] Family : Order #: [id number] CLICK HERE TO VIEW EXAM ECHOCARDIOGRAM REPORT [...] Moran M.D. on 11/22/2022 at 17:44 Normal [facility] Ambulatory Visit Summaryon 0 11-08-2022 Ambulatory Visit Summary STACEY SAHU :1975 Visit Date:11/08/2022 Ambulatory Visit Instructions Your Diagnosis Gross hematuria Kidney stones Nocturia Tests Performed Urnls Dip Stick Auto w/o Microscopy POC 71897 XR Abdomen 1 View -- Results Pending [...] PM EDT With: Ignacia KHAN MD Where: [facility] Normal [address] [place] [address] [place] [address]- \.br\ You Need to Schedule the Following Appointments\.br\ Follow Up with LESLIE JUNG PA-C, URL When: In 6 months 05/11/2023 EST\.br\ Comments:\.br\ KUB\.br\ Where:\.br\ [address]br\ ESDRAS [place] [address]\.br\ [id number]\.br\ Medications\.br\ What How Much When Instructions\.br\ Unchanged naproxen (Aleve) Every 12 hours Contact prescribing physician if questions or concerns \.br\ Unchanged omeprazole (Prilosec) Every day Contact prescribing physician if questions or concerns \.br\ Test Results\.br\ Urnls Dip Stick Auto w/o Microscopy POC 05771 (11/08/2022)\.br\ Bilirubin Urine Dipstick - Negative\.br\ Blood Urine Dipstick - 3+ Large\.br\ Glucose Urine Dipstick - Negative\.br\ Ketones Urine Dipstick - Negative\.br\ Leukocytes Urine Dipstick - Negative\.br\ Nitrite Urine Dipstick - Negative\.br\ Protein Urine Dipstick - Negative\.br\ Specific [place] Urine Dipstick - 1.020\.br\ Urine Appearance Urine [...] instructions at home:\.br\ Medicines\.br\ ? \.br\ Take eyeo-vsi-mytdpms and prescription medicines only as told by [...] blood stops without treatment.\.br\ ? \.br\ Take skgd-zyr-knhjysj and prescription medicines only as told by your health care provider.\.br\ ? \.br\ Drink enough fluid to keep your urine pale yellow.\.br\ This information is not intended to replace advice given to you by your health care provider. Make sure you discuss any questions you have with your health care provider.\.br\ Document Revised: 02/10/2021 Document Reviewed: 02/10/2021 Elsevier Patient Education ? 2022 [employer].br\ \.br\ [facility] Office Visiton 11-08-2022 Follow-up visit [id number] Stacey Sahu 1975 F Date Provider Department Center 11/08/2022 CAN [facility]AN RAVI [facility] Family History Problem Relation Age of Onset Coronary artery disease Father Family Status - Relation Status Age at Father Level of Service:92309 AL OFFICE/OUTPATIENT NEW MODERATE MDM 45-59 MINUTES Reason for Visit and Comments: Re-establish care [Other] Pulmonary Hypertension [818] Normal [facility] Patient Educationon 11-09-19 Patient Education Urology [...] these instructions at home: Medicines ? Take qxqp-klm-kadindh and prescription medicines only as told by [...] the blood stops without treatment. ? Take yzpn-imd-klonqkd and prescription medicines only as told by your health care provider. ? Drink enough fluid to keep your urine pale yellow. This information is not intended to replace advice given to you by your health care provider. Make sure you discuss any questions you have with your health care provider. Document Revised: 02/10/2021 Document Reviewed: 02/10/2021 [email or web address] Patient Education ? 2022 [employer] [facility] Urology Office/Clinic Noteon 11-08-2022 Urology Office/Clinic Note [...] PA-C, URL In 6 months 05/11/2023 EST [address] [place] [address] [id number] Additional Instructions: KUB Patient Education Hematuria, Adult [...] Protein Urine Dipstick: Negative (11/08/22 13:00:00) Specific [place] Urine Dipstick: 1.020 (11/08/22 13:00:00) Urine Appearance Urine Dipstick: Clear (11/08/22 13:00:00) Urine Color Urine Dipstick: Yellow (11/08/22 13:00:00) Urobilinogen Urine Dipstick: Normal 0.2-1 EU/dl (11/08/22 13:00:00) pH Urine Dipstick: 6 (11/08/22 13:00:00) Diagnostic Results Tests Reviewed: Reviewed UA, KUB [facility] Comment on above: Result Comment: Elec tronically Signed By: LESLIE JUNG PA-C\.br\Date and Time Signed: 11/08/22 13:46 EDT\.br\Electronically Co-Signed By: Moni Gonzáles MA\.br\Date and Time Co-Signed: 11/08/22 13:26 EDT RAD - MISCon 10-28-2022 RAD - MISC [id number]#1.00CD:127 [facility] US THYROID FN ASP BXon 10-28 US THYROID FN ASP BX Begin Addendum #1 COLLECTED DATE/TIME: 10/18/2022 13:19 EDT Final Diagnosis Report for [facility] [place] (A/B) SOFT TISSUE MASS CEPHALAD TO THYROID; FINE NEEDLE ASPIRATION: -ATYPIA OF UNDETERMINED SIGNIFICANCE. -CYST CONTENT. NOTE: Sparsely cellular aspirate compromised of follicular cells with architectural atypia. Molecular testing or a repeat aspirate may be helpful if clinically indicated. The final diagnosis is based on a microscopic exam of telemarketing sales representative sections. 10/25/[address] Caceres. [...] 2. Pathology results are pending. Normal [facility] XR KUB 1 VIEWon 10-27-2022 XR [...] PAULETTE GALVAN Date: 2022-10-27 07:19 Normal [facility] Provider Letteron 10-06-2022 Provider Letter October 06, 2022 STACEY SAHU [address] [place] [address] STACEY SAHU 1975 Dear Stacey , We [...] this matter. Sincerely, [facility] [address] [facility], [place] [address] [address] [facility] CT NECK ST W CONon CT NECK [...] by: PREET RODRIGEZ Date: 2022-10-05 08:22 Normal [facility] Physician Referralon 023 Physician Referral [id number]#1.00CD:127 Normal [facility] CARDIAC DENZEL ADMITon 023 CK [Catalytic activity/Vol] 149 U/L Normal 26-192 [facility] Comment on above: Performed By: #### C SHIVANI DENSON, CMP ####[facility] [address] [place] [id number]. Nita Iverson CK.MB [Mass/Vol] 1.51 ng/mL Normal <=3.60 [facility] Comment on above: Performed By: #### SHIVANI HARPER, CMP ####[facility] [address] [place], [place] [address]Om. Nita Iverson HSTROP 4.1 pg/mL Normal 4.0-51.3 [facility] Comment on above: Result Comment: CUT- OFF POINTS HAVE BEEN ESTABLISHED BASED ON THE FOURTH UNIVERSAL DEFINITIONS OF MYOCARDIAL INFARCTION. THE UPPER REFERENCE LIMIT (URL) OF TROPONIN, DEFINED THE 99TH PERCENTILE OF cTnI DISTRIBUTION IN A REFERENCE POPULATION, HAS BEEN CONFIRMED THE DECISION THRESHOLD FOR SD DIAGNOSIS. Performed By: #### C SHIVANI DENSON, CMP ####[facility] [address] [place], [place] [address]Qt. Nita Iverson ARIES 47 ng/mL Normal 9-82 [facility] Comment on above: Performed By: #### SHIVANI HARPER, CMP ####[facility] [address] [place], [place] [address]TjDr. Nita Iverson CBC AUTO DIFFon 09-21-2022 BASO # 0.1 103/ul Normal 0.0-0.1 [facility] Comment on above: Performed By: #### C BC #### [facility] [address] [address] [address] Nita Iverson Basophils/100 WBC (Bld) 0.8 % Normal 0.2-2.0 [facility] Comment on above: Performed By: #### C BC #### [facility] [address] [address] [address] Nita Iverson EO # 0.7 103/ul Normal 0.0-0.7 [facility] Comment on above: Performed By: #### C BC #### [facility] [address] [place] [address] Dr. Nita Iverson Eosinophils/100 WBC (Bld) 7.1 % Critically high 0.9-7.0 [facility] Comment on above: Performed By: #### C BC #### [facility] [address] [address] [address] Nita Iverson Erythrocyte distribution width (RBC) [Ratio] 12.3 % Normal 11.0-15.0 [facility] Comment on above: Performed By: #### C BC #### [facility] [address] [address] [address] Nita Iverson Hematocrit (Bld) [Volume fraction] 40.1 % Normal 36.0-48.0 [facility] Comment on above: Performed By: #### C BC #### [facility] [address] [address] [address] Nita Iverson Hemoglobin (Bld) [Mass/Vol] 13.6 g/dL Normal 12.0-16.0 [facility] Comment on above: Performed By: #### C BC #### [facility] [address] [place] [address] Dr. Nita Iverson IG # 0.02 10e3/ul Normal 0.00-0.03 [facility] Comment on above: Performed By: #### C BC #### [facility] [address] [place] [address] Dr. Nita Iverson IG % 0.2 % Normal 0.0-0.5 [facility] Comment on above: Performed By: #### C BC #### [facility] [address] [place] [address] Dr. Nita Iverson LYMPH # 3.0 103/ul Normal 1.2-3.8 [facility] Comment on above: Performed By: #### C BC #### [facility] [address] [place] [address] Dr. Nita Iverson Lymphocytes/100 WBC (Bld) 30.2 % Normal 20.5-60.0 [facility] Comment on above: Performed By: #### C BC #### [facility] [address] [place] [address] Dr. Nita Iverson MANUAL DIFF REQ NO Normal [facility] Comment on above: Performed By: #### C BC #### [facility] [address] [place] [address] Dr. Nita Iverson MCH (RBC) [Entitic mass] 30.0 pg Normal 26.7-34.0 [facility] Comment on above: Performed By: #### C BC #### [facility] [address] [place] [address] Dr. Nita Iverson MCHC (RBC) [Mass/Vol] 33.9 g/dL Normal 29.9-35.2 [facility] Comment on above: Performed By: #### C BC #### [facility] [address] [place] [address] Dr. Nita Iverson MCV (RBC) [Entitic vol] 88.3 fL Normal 81.0-99.0 [facility] Comment on above: Performed By: #### C BC #### [facility] [address] [place] [address] Dr. Nita Iverson MONO # 0.8 103/ul Normal 0.3-0.8 [facility] Comment on above: Performed By: #### C BC #### [facility] [address] [place] [address] Dr. Nita Iverson Monocytes/100 WBC (Bld) 7.8 % Normal 1.7-12.0 [facility] Comment on above: Performed By: #### C BC #### [facility] [address] [place] [address] Dr. Nita Iverson NEUT # 5.4 103/ul Normal 1.4-6.5 [facility] Comment on above: Performed By: #### C BC #### [facility] [address] [place] [address] Dr. Nita Iverson Neutrophils/100 WBC (Bld) 53.9 % Normal 43.0-75.0 [facility] Comment on above: Performed By: #### C BC #### [facility] [address] [place] [address] Dr. Nita Iverson Platelet mean volume (Bld) [Entitic vol] 10.4 fL Normal 9.5-13.5 [facility] Comment on above: Performed By: #### C BC #### [facility] [address] [place] [address] Dr. Nita Iverson PLT 270 103/ul Normal 150-450 [facility] Comment on above: Performed By: #### C BC #### [facility] [address] [place] [address] Dr. Nita Iverson RBC 4.54 106/ul Normal 4.20-5.40 [facility] Comment on above: Performed By: #### C BC #### [facility] [address] [place] [address] Dr. Nita Iverson WBC 10.0 103/ul Normal 4.0-11.0 [facility] Comment on above: Performed By: #### C BC #### [facility] [address] [place] [address] [address] ABD/PELV W CONon [...] MISTY SPEARS Date: 2022-09-21 21:41 Normal [facility] ER URINE PROFILEon 3 Bilirubin Ql (U) Negative Normal NEGATIVE [facility] Comment on above: Performed By: #### U MICRO, ERUR, PREGU ####[facility] [address] [place], [place] [address]NfMaribel Iverson Clarity (U) CLEAR Normal CLEAR [facility] Comment on above: Performed By: #### U MICRO, ERUR, PREGU ####[facility] [address] [place], [place] [address]LuMaribel Iverson Color (U) LT. YELLOW Normal YELLOW [facility] Comment on above: Performed By: #### U MICRO, ERUR, PREGU ####[facility] [address] [place] [address]Dr. Nita SOMMERS A micrscopic examination will be performed if indicated. Normal [facility] Comment on above: Performed By: #### U MICRO, ERUR, PREGU ####[facility] [address] [place] [address]Dr. Nita Iverson Glucose Ql (U) Negative Normal NEGATIVE [facility] Comment on above: Performed By: #### U MICRO, ERUR, PREGU ####[facility] [address] [place] [address]Dr. Nita Iverson Hemoglobin Ql (U) LARGE Abnormal NEGATIVE [facility] Comment on above: Performed By: #### U MICRO, ERUR, PREGU ####[facility] [address] [place] [address]Dr. Nita Iverson Ketones Ql (U) Negative Normal NEGATIVE [facility] Comment on above: Performed By: #### U MICRO, ERUR, PREGU ####[facility] [address] [place] [address]Dr. Nita Iverson LEUKOCYTES Negative Normal NEGATIVE [facility] Comment on above: Performed By: #### U MICRO, ERUR, PREGU ####[facility] [address] [place] [address]Dr. Nita Iverson Nitrite Ql (U) Negative Normal NEGATIVE [facility] Comment on above: Performed By: #### U MICRO, ERUR, PREGU ####[facility] [address] [place] [address]Dr. Nita Iverson pH (U) 6.5 [pH] Normal 5-9 [facility] Comment on above: Performed By: #### U MICRO, ERUR, PREGU ####[facility] [address] [place] [address]Dr. Nita Iverson SPEC GRAVITY 1.020 Normal 1.005-<=1.025 [facility] Comment on above: Performed By: #### U MICRO, ERUR, PREGU ####[facility] [address] [place] [address]Dr. Nita Iverson UA PROTEIN Negative Normal NEGATIVE/ TRACE [facility] Comment on above: Performed By: #### U MICRO, ERUR, PREGU ####[facility] [address] [place] [address]Dr. Nita Iverson UR MICRO IND INDICATED Normal [facility] Comment on above: Performed By: #### U MICRO, ERUR, PREGU ####[facility] [address] [place] [address]Dr. Nita Iverson Urobilinogen Qn (U) 1.0 {Senait'U}/dL Normal 0.2 - 1. 0 [facility] Comment on above: Performed By: #### U MICRO, ERUR, PREGU ####[facility] [address] [place] [address]Dr. Nita Iverson LIPASEon 09-21-2022 Lipase [Catalytic activity/Vol] 89.0 U/L Normal 73.0-393.0 [facility] Comment on above: Performed By: #### C JARETT LIPA, CMP ####[facility] [address] [place] [address]Dr. Nita Iverson URon 09-21-2022 , QUAL Negative Normal NEGATIVE [facility] Comment on above: Performed By: #### U MICRO, ERUR, PREGU ####[facility] [address] [place] [address]DrMaribel Iverson PROF 14(COMP METB)on 023 Albumin [Mass/Vol] 3.5 g/dL Normal 3.4-5.0 [facility] Comment on above: Performed By: #### C JARETT LIPA, CMP #### [facility] [address] [address] [address] Nita Iverson Albumin/Globulin [Mass ratio] 1.0 {ratio} Normal [facility] Comment on above: Performed By: #### C MADMarita, LIPA, CMP #### [facility] [address] [address] [address] Nita Iverson ALP [Catalytic activity/Vol] 67 U/L Normal 46-116 [facility] Comment on above: Performed By: #### C MADMarita LIPA, CMP #### [facility] [address] [place] [address] Dr. Nita Iverson ALT [Catalytic activity/Vol] 30 U/L Normal 14-59 [facility] Comment on above: Performed By: #### C MADM, LIPA, CMP #### [facility] [address] [place] [address] Dr. Nita Iverson Anion gap [Moles/Vol] 11.8 mmol/L Normal [facility] Comment on above: Performed By: #### C MADM, LIPA, CMP #### [facility] [address] [place] [address] Dr. Nita Iverson AST [Catalytic activity/Vol] 25 U/L Normal 15-37 [facility] Comment on above: Performed By: #### C MADM, LIPA, CMP #### [facility] [address] [place] [address] Dr. Nita Iverson Bilirubin [Mass/Vol] 0.3 mg/dL Normal 0.2-1.0 [facility] Comment on above: Performed By: #### C MADM, LIPA, CMP #### [facility] [address] [place] [address] Dr. Nita Iverson Calcium [Mass/Vol] 9.2 mg/dL Normal 8.5-10.1 [facility] Comment on above: Performed By: #### C MADM, LIPA, CMP #### [facility] [address] [place] [address] Dr. Nita Iverson Chloride [Moles/Vol] 106 mmol/L Normal 98-107 [facility] Comment on above: Performed By: #### C MADM, LIPA, CMP #### [facility] [address] [place] [address] Dr. Nita Iverson CO2 [Moles/Vol] 28.7 mmol/L Normal 21.0-32.0 [facility] Comment on above: Performed By: #### C MADM, LIPA, CMP #### [facility] [address] [address] [address] Nita Iverson Creatinine [Mass/Vol] 0.81 mg/dL Normal 0.55-1.02 [facility] Comment on above: Performed By: #### C MADM, LIPA, CMP #### [facility] [address] [address] [address] Nita Iverson EGFR-AF CHINESE >60 Normal >=60 [facility] Comment on above: Performed By: #### C MADM, LIPA, CMP #### [facility] [address] [address] [address] Nita Iverson EGFR-NON AF CHINESE >60 Normal >=60 [facility] Comment on above: Performed By: #### C MADM, LIPA, CMP #### [facility] [address] [address] [address] Nita Iverson Globulin (S) [Mass/Vol] 3.5 g/dL Normal [facility] Comment on above: Performed By: #### C MADM, LIPA, CMP #### [facility] [address] [address] [address] Nita Iverson Glucose [Mass/Vol] 106 mg/dL Normal 74-106 [facility] Comment on above: Performed By: #### C MADM, LIPA, CMP #### [facility] [address] [address] [address] Nita Iverson Potassium [Moles/Vol] 4.5 mmol/L Normal 3.5-5.1 [facility] Comment on above: Performed By: #### C MADM, LIPA, CMP #### [facility] [address] [address] [address] Nita Iverson Protein [Mass/Vol] 7.0 g/dL Normal 6.4-8.2 [facility] Comment on above: Performed By: #### C MADM, LIPA, CMP #### [facility] [address] [address] [address] Nita Iverson Sodium [Moles/Vol] 142 mmol/L Normal 136-145 [facility] Comment on above: Performed By: #### C SHIVANI DENSON, CMP #### [facility] [address] [address] [address] Nita Iverson Urea nitrogen [Mass/Vol] 12.0 mg/dL Normal 7.0-18.0 [facility] Comment on above: Performed By: #### C SHIVANI DENSON, CMP #### [facility] [address] [address] [address] Nita Iverson Urea nitrogen/Creatinine [Mass ratio] 14.8 mg/mg Normal [facility] Comment on above: Performed By: #### C SHIVANI DENSON, CMP #### [facility] [address] [address] [address] Nita Iverson URINE MICROSCOPIC ONLYon BACTERIA NONE SEEN Normal NONE SEEN [facility] Comment on above: Performed By: #### U MICRO, ERUR, PREGU ####[facility] [address] [place] [address]Dr. Nita Iverson Bacteria identified Cx Nom (U) NOT INDICATED Normal [facility] Comment on above: Performed By: #### U MICRO, ERUR, PREGU ####[facility] [address] [place] [address]Dr. Nita Iverson CAST NONE SEEN Normal NONE SEEN [facility] Comment on above: Performed By: #### U MICRO, ERUR, PREGU ####[facility] [address] [place] [address]Dr. Nita Iverson Crystals LM Nom (Urine sed) NONE SEEN Normal NONE SEEN [facility] Comment on above: Performed By: #### U MICRO, ERUR, PREGU ####[facility] [address] [place] [address]Dr. Nita Iverson Epithelial cells LM Ql (Urine sed) RARE Normal NONE SEEN /RARE [facility] Comment on above: Performed By: #### U MICRO, ERUR, PREGU ####[facility] [address] [place] [address]Dr. Nita Iverson MUCOUS NONE SEEN Normal NONE SEEN [facility] Comment on above: Performed By: #### U MICRO, ERUR, PREGU ####[facility] [address] [place], [place] [address]Lk. Nita Iverson RBC 20-50 Abnormal 0-2 [facility] Comment on above: Performed By: #### U MICRO, ERUR, PREGU ####[facility] [address] [place], [place] [address]Cf. Nita Iverson WBC 2-5 Abnormal NONE SEEN [facility] Comment on above: Performed By: #### U MICRO, ERUR, PREGU ####[facility] [facility] [address] [place], [place] [address]Zg. Nita Iverson US THYROIDon 09-06-2022 US THYROID [...] PREET RODRIGEZ Date: 2022-09-06 20:19 Normal [facility] MRI HIP RT WO CONon 08-19-19 MRI HIP RT WO CON EXAM: MRI HIP RT WO CON HISTORY: Right hip pain COMPARISON: X-rays 07/07/2022 TECHNIQUE: Axial and coronal large wfpba-pa-jxkt sequencing through the pelvis and both hips. Small udzia-op-kumn coronal, sagittal and axial sequencing through the [...] at approximately the 11:00 position (coronal small qaypg-un-umrr 14). The remainder of the labrum exhibits no gross irregularity. The left acetabulum is normal. The bilateral femoral head and acetabular cartilage exhibits no chondral or osteochondral irregularity. The pubic symphysis and sacroiliac joints are normal. Thickening and interstitial edema of the right gluteus medius tendon insertion to the greater trochanter (coronal small avvlc-is-vqhk 13 and axial large hvxyk-zz-xclh 23). Mild amount of adjacent edema. No abnormal bursal fluid collection. Questionable mild thickening and interstitial edema of the left gluteus minimus tendon (coronal large gfmdb-jv-dziz 17 and axial large ascrn-mg-kesb 23 and to a lesser degree the gluteus medius tendon (coronal large fllfz-jm-jash 21). No tendon tear, tendon tear or [...] by: PAULETTE PHIPPS Date: 2022-08-18 22:39 Normal [facility] PAP ACOG PANEL 2: 30 to 65on 08-11-2022 . . Normal [facility] Comment on above: Result Comment: Perf ormed at: WB Performed By: #### [id number] ####[facility] [address] [place] [address]DrMaribel Iverson Age Gdln ACOG Testing 30-65 [facility] Comment on above: Performed By: #### [id number] ####[facility] [address] [place] [id number] Iverson DIAGNOSIS: Comment Normal [facility] Comment on above: Result Comment: NEGA TIVE FOR INTRAEPITHELIAL LESION OR MALIGNANCY. Performed at: WB Performed By: #### [id number] ####[facility] [address] [place], [place] [address]DrMaribel Iverson HPV Aptima Negative Normal Negative [facility] Comment on above: Result Comment: This nucleic acid amplification test detects fourteen high-risk HPV types (16,18,31,33,35,39,45,51,52,56,58,59,66,68) without differentiation. Performed at: =G Performed By: #### [id number] ####[facility] [address] [place], [place] [address]Dr. Nita Iverson HPV Genotype Reflex Comment Normal [facility] Comment on above: Result Comment: Crit eria not met, HPV Genotype not performed. Performed at: WB Performed By: #### [id number] ####[facility] [address] [place], [place] [address]DrMaribel Iverson Methodology: Comment Normal [facility] Comment on above: Result Comment: This liquid based ThinPrep(R) pap test was screened with the use of an image guided system. Performed at: WB Performed By: #### [id number] ####[facility] [address] [place], [place] [address]DrMaribel Iverson Note: Comment Normal [facility] Comment on above: Result Comment: The Pap smear is a screening test designed to aid in the detection of premalignant and malignant conditions of the uterine cervix. It is not a diagnostic procedure and should not be used as the sole means of detecting cervical cancer. Both false-positive and false-negative reports do occur. . Performed at: WB Performed By: #### [id number] ####[facility] [address] [place] [address]Dr. Nita Iverson Performed by: Comment Normal [facility] Comment on above: Result Comment: Jordana Pruett, Programs Manager (ASCP) Performed at: WB Performed By: #### [id number] ####[facility] [address] [place] [address]Dr. Janniejennifer Iverson Specimen adequacy: Comment Normal [facility] Comment on above: Result Comment: Sati sfactory for evaluation. No endocervical component is identified. Performed at: WB Performed By: #### 4 [id number] ####[facility] [address] [place] [address]Dr. Nita Kishor US PELVIS AND TRANSVAGon US PELVIS AND [...] by: PAULETTE GALVAN Date: 2022-06-06 17:51 Normal [facility] CT ABD/PELV WO W CONon 04-25 [...] by: PREET RODRIGEZ Date: 2022-04-25 08:09 Normal [facility] RENAL W_WO PHARMon 2021 [place] RENAL W_WO PHARM EXAMINATION: WA RENAL W_WO PHARM HISTORY: Kidney stone COMPARISON: [...] by: PAULETTE GALVAN Date: 2022-03-22 17:23 Normal [facility] XR KUB 1 VIEWon 03-22-2022 XR [...] PAULETTE GALVAN Date: 2022-03-22 17:57 Normal [facility] US THYROIDon 03-09-2022 US THYROID EXAMINATION: [...] IMPRESSION: Multinodular goiter, grossly stable TI-RADS: The [place] TI-RADS committee's white paper recommendations for thyroid lesions classified as TR4 (moderately suspicious) are listed below: > 1.0 cm. Follow-up ultrasound in 1, 2, 3, and 5 years. > 1.5 cm. FNA. J. Am Rosendo Radiol 2017;14:587-595. Electronically authenticated by: PAULETTE GALVAN Date: 2022-03-09 07:07 Normal [facility] CT ABD/PELV WO W CONon 03-07 [...] by: PREET RODRIGEZ Date: 2022-03-07 16:45 Normal [facility] CNOVon 02-21-2022 CNOV Office Visit ([facility]) -------- STACEY SAHU ([id number]) 1975 F Date Time Provider Department 02/21/22 1:00 PM SHIRAZ BO During your visit today, we recorded the following information about you: Pulse Blood pressure Weight 76/minute 138/85 88.8 kg Shiraz Landen Kirill, 03/13/2022 1:15 PM Signed [facility] - [facility] [...] gel - no benefit Therapies PT at [facility] in [place] in June 2021 - 2 times per week for 1 month, exercises, TENS, ice - no relief Ice/heat Prior spine/MSK interventions: -12/31/21 Dr. Muñoz: R GTB CSI - minimal relief for 1 day. -06/2021 Possibly a R GTB CSI at a 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 Normal [facility] MG MAMM SCREEN 3D GRACIE CADon 02-09-2022 MG MAMM SCREEN 3D GRACIE CAD Patient: STACEY SAHU Exam Date: 02/09/2022 : 1975 Gender:F Ordering : NIURKA [facility] Admission #: [id number] Family : Order #: [id number] CLICK HERE TO VIEW EXAM RADIOLOGY REPORT [...] colon cancer at age 56. LOCATION: [facility] BREAST COMPOSITION: Scattered areas fibroglandular density. [...] M.D. on 02/09/2022 at 14:53 Normal [facility] Covid-19 PCR ([facility]on SARS-CoV-2 (COVID-19) RNA IZAIAH+probe Ql (Unsp spec) Detected Critically abnormal NOT DETECTED [facility] Comment on above: Result Comment: This test is not yet approved or cleared by the [place] FDA. When there are no FDA-approved or cleared tests available, and other criteria are met, FDA can make tests available under an emergency access mechanism called an Emergency Use Authorization (EUA). The EUA for this test is supported by the Commodity Buyer of Health and Human Service's declaration that [...] longer be used). Performed By: #### [facility] #### [facility] [address] [place] [address] Dr. Nita Figueroa 01-17-2022 VIOLETA Office Visit (LOORRM) -------- STACEY SAHU ([id number]) 1975 F Date Time Provider Department 01/17/22 3:30 PM BREEZY MUÑOZ During your visit today, we recorded the following information about you: Breezy Muñoz DO 01/17/2022 3:48 PM Signed SERVICE DATE: January 17, 2022 PCP: Essie Ryan, NIURKA, HUMAN RESOURCES BENEFITS COORDINATOR Patient was self-referred. Subjective Patient ID: Stacey [...] x 4 Crohn's disease without complication (HCC) [id number] Pulmonary Htn (Hcc) Obese Nirmala (Obstructive Sleep [...] hip (primary encounter diagnosis) Plan: CONSULT TO [facility] (M51.27) Lumbago-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 Plan: CONSULT TO [facility] Office Visit on 01/17/22 - CONSULT TO [facility] PLAN I recommend she go to the [...] TO S (more content not included)... Normal [facility] VIOLETAon 12-31-2021 CNOV Office Visit ([facility]ORRM) -------- STACEY SAHU ([id number]) 1975 F Date Time Provider Department 12/31/21 1:00 PM BREEZY MUÑOZ During your visit today, we recorded the following information about you: Breezy Javy DO Kaylee 12/31/2021 1:10 PM Signed SERVICE DATE: December 31, 2021 PCP: Essie Ryan, HUMAN RESOURCES BENEFITS COORDINATOR, HUMAN RESOURCES BENEFITS COORDINATOR Patient was self-referred. Subjective Patient ID: Stacey [...] x 4 Crohn's disease without complication (HCC) [id number] Pulmonary Htn (Hcc) Obese Nirmala (Obstructive Sleep [...] Care Vi (more content not included)... Normal [facility] MR femur RT wo/w conon 12-04 MR femur RT wo/w con [facility] [place] [address] [place] [address] MRI Report Signed Patient: Stacey Sahu MR#: [id number] : 1975 Acct:[id number] Age/Sex: 46 / F ADM Date: 12/03/21 Loc: MR Room: Type: [facility] Attending Dr: Alexis Saenz II, MD [...] Stock Jr., M.D.12/04/2021 3:45 PM Dictation Location: [place] [address] Transcribed By: [facility] 12/04/21 8186 Dictated By: Breezy Stock Jr, MD 12/04/21 1511 Signed By: 12/04/21 1546 [facility] XR femur RT 2V*on 11-17-2021 XR femur RT 2V* [facility] [place] [address] [place] [address] XRay Report Signed Patient: Stacey Sahu MR#: [id number] : 1975 Acct:[id number] Age/Sex: 46 / F ADM Date: 11/17/21 Loc: [facility] Room: Type: [facility] Attending Dr: Alexis Saenz II, MD Ordering Provider: Alexis Saenz MD Date of Service: 11/17/21 XR/XR hip RT min 2V(w/wo pelvis)*: Right hip pain ([id number]) XR/XR femur RT 2V*: Right hip pain [...] Vipin Iniguez M.D.11/17/2021 3:56 PM Dictation Location: [place] [address] Transcribed By: [facility] 11/17/21 1556 Dictated By: Vipin Iniguez DO 11/17/21 1553 Signed By: 11/17/21 1556 [facility] Large Joint Arthro/Inj: R gr eater trochanteric bursa [facility] Vital Signs Date Time Vital Sign Value Performing Clinician Facility 06-28-2023 [id number] Body height 149.9 cm Evans Anderson PA-C Work Phone: [employer] 06-28-2023 10:34-0500 Body mass index (BMI) [Ratio] 38.78 kg/m2 Evans Verhoff [facility]-C [facility] 06-28-2023 10:34-0500 Body weight 87.09 kg Evans Verhoff PA-C [facility] 06-28-2023 10:34-0500 Diastolic blood pressure 107 mm[Hg] Evans Verhoff PA-C Work [facility] 06-28-2023 10:34-0500 Heart rate 93 /min Evans Verhoff PA-C Work [facility] 06-28-2023 10:34-0500 SaO2% (BldA) [Mass fraction] 97 % Evans Verhoff PA-C [facility] 06-28-2023 10:34-0500 Systolic blood pressure 139 mm[Hg] Evans Verhoff PA-C Work Phone: [facility] [employer] [facility] 05-29-2023 14:39-0500 Blood Pressure Location Jose JOSE [facility] 05-29-2023 14:39-0500 Diastolic blood pressure 83 mm[Hg] Jose GARCIA [facility] 05-29-2023 14:39-0500 Heart rate 88 /min Jose GARCIA [facility] 05-29-2023 14:39-0500 Respiratory rate 16 /min Jose GARCIA [facility] 05-29-2023 14:39-0500 Systolic blood pressure 131 mm[Hg] Jose GRACIA [facility] 11-24-2022 13:48-0400 Diastolic blood pressure 106 mm[Hg] Ignacia KHAN [facility] 11-24-2022 13:48-0400 Mean blood pressure 121 mm[Hg] Beth SALAM [facility] 11-24-2022 13:48-0400 Systolic blood pressure 152 mm[Hg] Beth SALAM [facility] 11-24-2022 13:46-0400 Blood Pressure Location Beth SALAM [facility] 11-24-2022 13:46-0400 Diastolic blood pressure 118 mm[Hg] Beth SALAM [facility] 11-24-2022 13:46-0400 Heart rate 80 /min Beth SALAM [facility] 11-24-2022 13:46-0400 Respiratory rate 16 /min Beth SALAM [facility] 11-24-2022 13:46-0400 Systolic blood pressure 161 mm[Hg] Beth SALAM [facility] 04-26-2022 12:03-0400 Blood Pressure Location Jose GARCIA [facility] 04-26-2022 12:03-0400 Diastolic blood pressure 95 mm[Hg] Jose GARCIA [facility] 04-26-2022 12:03-0400 Heart rate 102 /min Jose GARCIA [facility] 04-26-2022 12:03-0400 Systolic blood pressure 141 mm[Hg] Jose GARCIA [facility] 02-21-2022 12:39-0400 Body weight 88.81 kg Shiraz Bo DO Work Phone: [facility] 02-21-2022 12:39-0400 Diastolic blood pressure 85 mm[Hg] Shiraz Bo DO Work Phone: [facility] 02-21-2022 12:39-0400 Heart rate 76 /min Shiraz Bo DO Work Phone: [facility] 02-21-2022 12:39-0400 Systolic blood pressure 138 mm[Hg] Shiraz Bo DO Work Phone: [facility] 12-09-2021 09:00-0400 Body height 160.02 cm Alexis [place] II Other [employer] Other 12-09-2021 09:00-0400 Body mass index (BMI) [Ratio] 34.47 kg/m2 Alexis [place] II Other [employer] Other 12-09-2021 09:00-0400 Body weight 88.27 kg Alexis [place] II Other [employer] Other 11-17-2021 15:30-0400 Body height 160.02 cm Alexis Dany II Other [employer] Other 11-17-2021 15:30-0400 Body mass index (BMI) [Ratio] 32.41 kg/m2 Alexis [place] II Other [employer] Other 11-17-2021 15:30-0400 Body weight 83.01 kg Alexis Dany II Other [employer] Other Encounters Encounter Date Encounter Type Care Provider Facility Start: 10-02-2023 ambulatory Jose Singleton ty:FLORENTIN Tobias Start: 08-26-2023 End: 08-26-2023 ambulatory MARY DANIELS Not Available Start: 07-13-2023 End: 07-14-2023 ambulatory ESSIE RYAN Not Available Start: 07-11-2023 End: 07-11-2023 ambulatory Juliana Block Other [facility] [employer] Other Start: 07-11-2023 Office outpatient vi sit 25 minutes Juliana Block [facility] Start: 07-04-2023 End: 07-04-2023 ambulatory ESSIE ALANIZHOLZ Not Available Start: 06-28-2023 End: 06-28-2023 ambulatory EVANS ANDERSON [facility] Start: 06-28-2023 End: 06-28-2023 Office outpatient visit 15 minutes Evans Anderson PA-C Work Phone: [facility] Comment on above: Lumbar radiculopathy (Primary Dx) Start: 05-29-2023 End: 05-30-2023 ambulatory Jose GARCIA Facility:[facility] Start: 05-29-2023 End: 05-29-2023 Patient encounter procedure Jose GARCIA [facility] Start: 05-10-2023 End: 05-10-2023 ambulatory NEDA CACERES Not Available Start: 02-02-2023 End: 02-03-2023 ambulatory [facility] Facility:[facility] Start: 02-02-2023 End: 02-03-2023 ambulatory [facility] Facility[facility] Start: 02-02-2023 End: 02-02-2023 Lab Drop off Beth [facility] Start: 02-01-2023 End: 02-02-2023 ambulatory [facility] Facility:[facility] Start: 02-01-2023 End: 02-01-2023 Patient encounter procedure [facility] Start: 01-05-2023 End: 01-06-2023 ambulatory Beth SALAM Facility:[facility] Start: 01-03-2023 End: 01-04-2023 ambulatory Beth SALAM Facility::[id number] Start: 12-06-2022 End: 12-07-2022 ambulatory Beth SALAM Facility:[facility] Start: 12-06-2022 End: 12-06-2022 Patient encounter procedure Beth SALAM [facility] Start: 11-24-2022 End: 11-25-2022 ambulatory SHAIKH JOANNAElvira Facility:[facility] Start: 11-24-2022 End: 11-24-2022 Patient encounter procedure Beth SALAM [facility] Start: 11-22-2022 End: 11-23-2022 ambulatory CAN MORAIMA Facility:[facility] Start: 11-08-2022 End: 11-08-2022 ambulatory [facility] Start: 11-08-2022 End: 11-08-2022 Encounter for preprocedural cardiovascular examination [facility] Start: 11-08-2022 End: 11-09-2022 ambulatory NARENDRANATH LAKSHMIPATHY . Facility:[facility] Start: 10-26-2022 End: 10-27-2022 ambulatory NIURKA RYAN Facility:[facility] Start: 10-18-2022 End: 10-18-[address] NEDA CACERES Facility:[facility] Start: 10-04-2022 End: 10-05-[address] NEDA CACERES Facility:[facility] Start: 09-28-2022 ambulatory Ignacia KHAN Facility:[facility] Start: 09-21-2022 End: 09-22-2022 ambulatory EDNA López Facility:[facility] Start: 09-06-2022 End: 09-07-[address] [...] encounter procedure Jose GARCIA [facility] Start: 04-22-2022 End: 04-23-2022 ambulatory NIURKA RYAN Facility:[facility] Start: 03-29-2022 End: 03-30-[address] MARKO MORALES . Facility:[facility] Start: 03-22-2022 End: 03-23-2022 ambulatory NIURKA RYAN Facility:[facility] Start: 03-22-2022 End: 03-23-[address] MARKO MORALES . Facility:[facility] Start: 03-08-2022 End: 03-09-[address] NEDA CACERES Facility:[facility] Start: 03-08-2022 End: 03-08-2022 Patient encounter procedure Jose GARCIA [facility] Start: 03-07-2022 End: 03-08-2022 ambulatory HUMAN RESOURCES BENEFITS COORDINATOR ESSIE RYAN Facility:[facility] Start: 02-21-2022 End: 02-21-2022 [facility] Start: 02-21-2022 End: 02-21-2022 Patient encounter procedure Shiraz Bo DO Work Phone: Spine Medicine Comment on above: Tendinopathy of righ t gluteal region (Primary Dx); Trochanteric bursitis of right hip; Chronic bilateral low back pain without sciatica; Lumbar spondylosis Start: 02-09-2022 End: 02-10-2022 ambulatory NIURKA CARPENTER [facility] Facility:[facility] Start: 01-24-2022 End: 01-24-2022 ambulatory [facility] Start: 01-17-2022 End: 01-17-2022 ambulatory [facility] Start: 01-17-2022 End: 01-17-2022 Patient encounter procedure Breezy Javy Kaylee DO Work Phone: Orthopaedics Comment on above: Trochanteric bursiti s of right hip (Primary Dx); Lumbago-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 Start: 01-05-2022 End: 01-05-2022 ambulatory Alexis Little [place] II Other [employer] Other Start: 01-05-2022 Telephone encounter Alexis [place] II [facility] Start: 12-31-2021 End: 12-31-2021 ambulatory BREEZY MUÑOZ Facility:[facility] Start: 12-31-2021 End: 12-31-2021 Patient encounter procedure Breezy Muñoz DO Work Phone: Orthopaedics Comment on above: Trochanteric bursiti s of right hip (Primary Dx) Start: 12-09-2021 End: 12-09-2021 ambulatory Alexis [place] II Other [employer] Other Start: 12-09-2021 Office outpatient vi sit 25 minutes Alexis Dany II [facility] Start: 11-17-2021 End: 11-17-2021 ambulatory Alexis Dany II Other [employer] Other Start: 11-17-2021 Office outpatient ne w 45 minutes Alexis Dany II [facility] Start: 06-02-2017 End: 06-03-2017 Ambulatory DEFAULT PHYSICIAN Facility:[facility] Start: 05-15-2017 End: 05-16-2017 Ambulatory DEFAULT PHYSICIAN Facility:[facility] Start: 05-01-2017 End: 05-02-2017 Ambulatory DEFAULT PHYSICIAN Facility:[facility] Procedures Date Procedure Procedure Detail Performing Clinician Start: 12-24-2022 Lobectomy of thyroid gland Josechamp GARCIA Start: 02-14-2022 Adult depression scr eening [...] (1 of 3 - Risk 3-dose series) [facility] Start: 06-28-2024 Adult BMI Screening Adult BMI Screening [facility] Start: 06-28-2024 Tobacco Screening Tobacco Screening [facility] Start: 12-15-2023 DIABETES SCREEN DIABETES SCREEN [facility] Start: 08-30-2023 End: 08-30-2023 Patient encounter procedure 08/30/2023 8:15 AM EST Office Visit [facility] [address] [place] [id number] Evans Anderson, PA-C [address] [place] [address] [facility] Start: 02-24-2023 Influenza vaccination Influenza Vaccine [facility] Start: 02-14-2023 Adult depression screening assessment DEPRESSION SCREENING [facility] Start: 02-24-2022 Influenza vaccination INFLUENZA (#1) [facility] Start: 12-15-2021 Colonoscopy COLONOSCOPY [facility] Start: 12-15-2021 COLORECTAL CANCER SCREENING COLORECTAL CANCER SCREENING [facility] Start: 2021 COLOGUARD (FIT-DNA) COLOGUARD (FIT-DNA) [facility] Start: [address] COLONOGRAPHY [facility] Start: 2021 FECAL OCCULT BLOOD FECAL OCCULT BLOOD [facility] Start: 2021 LIPID SCREEN LIPID SCREEN [facility] Start: 2021 SIGMOIDOSCOPY SIGMOIDOSCOPY [facility] Start: 2016 Mammography MAMMOGRAM [facility] Start: 2006 HPV TESTING HPV TESTING [facility] Start: 1997 PAP TESTING PAP TESTING [facility] Start: 1995 DTaP,Tdap and Td Vaccines (1 - Tdap) DTaP,Tdap and Td Vaccines (1 - Tdap) [facility] Start: 1995 HEPATITIS B (1 of 3 - Risk 3-dose series) HEPATITIS B (1 of 3 - Risk 3-dose series) [facility] Start: 1995 Urine microalbumin profile DTAP,TDAP,TD (1 - Tdap) [facility] Start: 1994 Adult BMI Follow Up Plan Adult BMI Follow Up Plan [facility] Start: 1994 HIV SCREENING HIV SCREENING [facility] Start: 1994 MMR (1 of 2 - Risk 2-dose series) MMR (1 of 2 - Risk 2-dose series) [facility] Start: 1988 Adult depression screening assessment DEPRESSION SCREENING [facility] Start: 1986 MENINGOCOCCAL B: Consider based on risk (1 of 4 - Increased Risk Bexsero 2-dose series) MENINGOCOCCAL B: Consider based on risk (1 of 4 - Increased Risk Bexsero 2-dose series) [facility] Start: 1977 HEPATITIS A (1 of 2 - Risk 2-dose series) HEPATITIS A (1 of 2 - Risk 2-dose series) [facility] Start: 1976 COVID-19 VACCINE (#1) COVID-19 VACCINE (#1) [facility] Immunizations Immunization Date Immunization Notes Care Provider Kati swift 05-03-2012 influenza, whole Jose CHRISTOPHER WOOTEN [facility] Cyrus 05-03-2012 influenza virus vaccine, unspecified formulation Evans Anderson PA-C Work Phone: [facility] Payers Date Payer Category Payer Private Health Insurance [facility] [id number] 2022-Present [phone] [address] [place] [address] [id number] 2020 Medicaid UHC MEDICAID UHC COMMUNITY PLAN MEDICAID [id number] 2020-Present [phone] [address] [place] [address] Medicaid [id number] 2020 Medicaid UHC MEDICAID UHC COMMUNITY PLAN MEDICAID [facility] [id number] 2020-Present [phone] [address] [place] [address] Medicaid [id number] 1976 Unknown [id number] 2.16.840.1.698510.3.579. 2.593 1976 Unknown [id number] 2.16.840.1.013343.3.579. 2.593 1976 Unknown [id number] 2.16.840.1.493941.3.579. 2.593 1976 Unknown [id number] 2.16.840.1.559541.3.579. 2.593 1976 Unknown [id number] 2.16.840.1.593773.3.579. 2.593 1976 Unknown [id number] 2.16.840.1.974468.3.579. 2.593 1976 Unknown [id number] 2.16.840.1.978218.3.579. 2.593 1976 Unknown [id number] 2.16.840.1.955976.3.579. 2.593 1976 Unknown [id number] 2.16.840.1.685577.3.579. 2.593 1976 Unknown [id number] 2.16.840.1.312832.3.579. 2.593 1976 Unknown [id number] 2.16.840.1.135622.3.579. 2.593 1976 Unknown [id number] 2.16.840.1.826438.3.579. 2.593 1976 Unknown [id number] 2.16.840.1.786075.3.579. 2.593 1976 Unknown [id number] 2.16.840.1.547558.3.579. 2.593 1976 Unknown [id number] 2.16.840.1.462127.3.579. 2.593 1976 Unknown [id number] 2.16.840.1.481781.3.579. 2.593 1976 Unknown [id number] 2.16.840.1.091860.3.579. 2.593 1976 Unknown [id number] 2.16.840.1.441196.3.579. 2.593 1976 Unknown [id number] 2.16.840.1.139226.3.579. 2.593 1976 Unknown [id number] 2.16.840.1.515246.3.579. 2.593 1976 Unknown [id number] 2.16.840.1.605474.3.579. 2.593 1976 Unknown [id number] 2.16.840.1.937603.3.579. 2.593 1976 Unknown [id number] 2.16.840.1.430837.3.579. 2.593 1976 Unknown [id number] 2.16.840.1.212128.3.579. 2.1286 1976 Unknown [id number] 2.16.840.1.735066.3.579. 2.727 1976 Unknown [id number] 2.16.840.1.090232.3.579. 2.727 1976 Unknown [id number] 2.16.840.1.701859.3.579. 2.727 1976 Unknown [id number] 2.16.840.1.453790.3.579. 2.727 1976 Unknown [id number] 2.16.840.1.074943.3.579. 2.727 1976 Unknown [id number] 2.16.840.1.812888.3.579. 2.727 1976 Unknown [id number] 2.16.840.1.514343.3.579. 2.727 1976 Unknown [id number] 2.16.840.1.286448.3.579. 2.727 1976 Unknown [id number] 2.16.840.1.392754.3.579. 2.727 1976 Unknown [id number] 2.16.840.1.059236.3.579. 2.727 1976 Unknown [id number] 2.16.840.1.149113.3.579. 2.1259 1976 Unknown [id number] 2.16.840.1.821215.3.579. 2.1259 1976 Unknown [id number] 2.16.840.1.213846.3.579. 2.1259 1976 Unknown [id number] 2.16.840.1.230382.3.579. 2.1259 1959 Unknown [id number] 2.16.840.1.439723.19 1959 Unknown [id number] Unknown Social History Date Type Detail Facility Start: 08-06-2020 End: 06-28-2023 Sex Assigned At [facility] Other Start: 07-27-2016 End: 04-12-2023 Tobacco smoking status NHIS Never smoked tobacco [facility] Start: 07-27-2016 End: 04-12-2023 Tobacco use and exposure Smokeless tobacco non-user [facility] Start: 12-15-2020 End: 06-28-2023 Alcohol intake Current non-drinker of alcohol (finding) [facility] Start: 1975 Sex Assigned At Not on file C [facility] Start: 01-07-2022 End: 02-21-2022 Exposure to SARS-CoV-2 (event) Not sure [facility] Tobacco Past [facility] Comment on above: stopped 12 years ago stopped 12 years ago Tobacco smoking status No Smoking Status Entered [facility] Tobacco smoking status Never [facility] Start: 08-06-2020 End: 06-28-2023 History of Social function [facility] Functional Status Date Assessment Result Facility 05-29-2023 Functional Status N/A [facility] [place] 11-24-2022 Functional Status N/A [facility] 04-26-2022 Functional Status N/A [facility] Clinical Notes 12-14-2020 to 07-11-2023 Note [...] treatment plan. Patient left in stable condition [employer] Other 01-03-2024 History of Present illness Narrative* Evans Anderson PA-C - 06/28/2023 10:45 AM EST [facility] [address] [place] [address] Patient: Stacey Sahu Sex: female : 1975 Age: 48 y.o. PCP: ESSIE RYAN APRN-NIURKA 06/28/2023 Stacey Sahu is here for a(n) [...] min: NSAIDS, ice /heat, accupuncture, inj at [place] [facility] Mod relief: Narcotics Sign: Steroid inj by Ortho) for the symptoms. The treatment provided moderate relief. The effect of pain on patient's ADLS: Minimal Impairment. Past Medical History: Diagnosis Date Arthritis Bipolar disorder ([facility]) Chronic pain disorder Crohn's colitis ([facility]) Depression GERD (gastroesophageal reflux disease) H/O methicillin resistant Staphylococcus aureus infection Hyperlipidemia Joint pain Pleurisy Pulmonary hypertension ([facility]) Pulmonary hypertension ([facility]) Sleep apnea cpap Past Surgical History: Procedure Laterality Date COLON SURGERY part of bowel removed d/t crohns dx HYSTERECTOMY 2017 INJECTION SPINE TRANSFORAMINAL Right L 5,1 Nroot Right 05/26/2023 Performed by Pj Gannon MD at [facility] DEQUERVAINS CONTRACTURE Right 10/17/2018 Performed by Dereck Bagley DO at [facility] THYROIDECTOMY, PARTIAL Allergies Allergen Reactions Penicillins [...] accurate and complete. Essie Dutton CNA 06/28/23 1203 Evans Anderson PA-C 06/28/23 1229 [facility] Discharge instructions Patient Education 05/29/2023 15:17:27 Kidney Stones, Yfzt-hl-Pcuj Kidney Stones Kidney stones are rock-like masses [...] Follow these instructions at home: Medicines Take shgh-iuf-ragswsh and prescription medicines only as told by [...] provider. Document Revised: 02/14/2022 Document Reviewed: 02/14/2022 [employer] Patient Education 2022 [employer]. Follow Up Care 11/08/2022 13:29:10 With:JOSE FELIX, Jose Palafox, URL Address: [facility] [address], [place] [phone] When: Unknown Comments:4 mos w/ metabolic w/u [facility] 05-16-2023 NoteNew patient here to re-establish care. Needs cleared for thyroid surgery with Dr. Caceres. Was last seen by Dr. Blackwood in 2018 for pulmonary hypertension. Denies chest pain and SOB. Does feel palpitations 3-4 times a day. Review of Systems Cardiovascular: Positive for palpitations. All other systems reviewed and are negative.[facility] 11-08-2022 NoteCardiovascular Medicine [facility] SUBJECTIVE Chief Complaint Patient presents with [...] Letairis tx doing well. (remote use of [employer] 2011) Preserved LVEF - RVSP 27mmHg Normal cors ([facility] 03/2012) Exercise stress 2014- no ischemia NIRMALA [...] Final Atrial Rate 05/01/2017 90 BPM Final AL Interval 05/01/2017 122 ms Final QRS DURATION 05/01/2017 98 ms Final QT Interval 05/01/2017 374 ms Final QTC CALCULATION(BEZET) 05/01/2017 457 ms Final P [place] 05/01/2017 46 degrees Final R-[place] 05/01/2017 60 degrees Final T Wave [place] 05/01/2017 37 degrees Final Diagnosis 05/01/2017 Final [...] ventricular systolic function (more content not included)... [facility]02-09-2023 NoteCONSULTATION CONSULTATION DATE: 08/04/2022 HISTORY OF [...] to her pain symptomatology. She did see OrthoSharona NP-C and she ordered a CT of [...] medications in three months, unless otherwise indicated.[id number] NotePROCEDURE: XR HIP RT 2 3V WO [...] to patient's symptoms. Electronically authenticated by: PREET Goetz: 2022-07-07 15:33[facility]01-12-2023 NoteCONSULTATION CONSULTATION DATE: 07/07/2022 HISTORY OF PRESENT [...] procedure, and she agrees to move forward.[facility] [id number] NoteCONSULTATION CONSULTATION DATE: 06/09/2022 HISTORY OF PRESENT [...] will re-evaluate with application of the diclofenac.[facility] 04-26-2022 Hospital Discharge instructions Patient Education [...] for grilled meats. Avoid extra toppings like jonhson, cheese, or fried items. Ask for the [...] 06/12/2006 Document Revised: 03/01/2019 Document Reviewed: 05/12/2017 [employer] Patient Education 2020 [employer]. 04/26/2022 12:17:47 Hematuria, Adult Hematuria, Adult Hematuria [...] Follow these instructions at home: Medicines Take days-ggy-xyaoyav and prescription medicines only as told by [...] or the blood stops without treatment. Take jsqn-rcl-poqphry and prescription medicines only as told by your health care provider. Drink enough fluid to keep your urine clear or pale yellow. This information is not intended to replace advice given to you by your health care provider. Make sure you discuss any questions you have with your health care provider. Document Released: 06/12/2006 Document Revised: 11/06/2019 Document Reviewed: 07/15/2017 [employer] Patient Education 2020 [employer]. Follow Up Care 04/22/2022 08:39:58 With:JOSE FELIX, Jose Palafox, URL Address: [address] [place] [phone] When:Within 6 Month(s) Comments:6 mo fu with KUB [facility] 10-04-2022 NoteCONSULTATION PROCEDURE DATE: 03/29/2022 PREOPERATIVE DIAGNOSIS: [...] Will be followed up in the office.[facility] [id number] NoteCONSULTATION CONSULTATION DATE: 03/22/2022 CHIEF COMPLAINT: Right [...] up subsequent to that. CC: Essie Ryan [facility]09-13-2022 Hospital Discharge instructions Patient Education 03/08/2022 [...] GARCIA Address: [facility] [address], [place] [address]- Business (1) When: Unknown Comments:Office will call to schedule follow up [facility]08-29-2022 NoteHNO ID: [id number] Author: Shiraz Bo, DO Service: ? Author Type: Physician Type: Progress Notes Filed: 03/13/2022 1:15 PM Note Text: [facility] [place] [facility] - Medical Spine Initial [...] gel - no benefit Therapies PT at [facility] in [place] in June 2021 - 2 times per week for 1 month, exercises, TENS, ice - no relief Ice/heat Prior spine/MSK interventions: -12/31/21 Dr. Muñoz: R GTB CSI - minimal relief for 1 day. 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[place], [place] Litigation: No Workers' Compensation: No YELLOW [...] x 4 Crohn's disease without complication (HCC) [id number] Pulmonary Htn (Hcc) Obese Nirmala (Obstructive Sleep Apnea) Gerd (Gastroesophageal Reflux Disease) Crohn's Disease of Intestine (Hcc) Enterolith of Small Intestine (Hcc) Bipolar Disease, Chronic (Hcc) Other Hyperlipidemia PAST MEDICAL HISTORY Diagnosis Date Abnormal uterine bleeding s/p hysterectomy Bipolar disorder (HCC) Crohn's disease of intestine (HCC) s/p surgery GERD (gastroesophageal reflux disease) Obes (more content not included)...[facility]08-29-2022 History of Present illness Narrative* Shiraz Bo, - 02/21/2022 12:46 PM EDT Images from the original note were not included. [facility] Medical [...] gel - no benefit Therapies PT at [facility] in [place] in June 2021 - 2 times per week for 1 month, exercises, TENS, ice - no relief Ice/heat Prior spine/MSK interventions: -12/31/21 Dr. Muñoz: R GTB CSI - minimal relief for 1 day. 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[place], [place] Litigation: No Workers' Compensation: No YELLOW [...] x 4 Crohn's disease without complication (HCC) [id number] Pulmonary Htn (Hcc) Obese Nirmala (Obstructive Sleep Apnea) Gerd (Gastroesophageal Reflux Disease) Crohn's Disease of Intestine (Hcc) Enterolith of Small Intestine (Hcc) Bipolar Disease, Chronic (Hcc) Other Hyperlipidemia PAST MEDICAL HISTORY Diagnosis Date Abnormal uterine bleeding s/p hysterectomy Bipolar disorder (HCC) Crohn's disease of intestine (HCC) s/p surgery GERD (gastroesophageal reflux disease) Obese NIRMALA (obstructive sleep apnea) Pulmonary HTN (HCC) resolved 2017 PAST SURGICAL HISTORY Procedure Laterality Date COLONOSCOPY ENDOMETRIAL ABLTJ THERMAL W/O HYSTEROSCOPIC GUID 2012 HYSTERECTOMY 2017 LAPAROSCOPY COLECTOMY PARTIAL W/ANASTOMOSIS 2002 Ileocecectomy for Crohn's LAPAROSCOPY DIAGNOSTIC 06/2016 MIDLINE INSERTION/CONSULT 12/14/2020 TOTAL ABDOM HYSTERECTOMY ovaries intact TUBAL LIGATION HX 2003 Social History Tobacco Use Smoking status: Never [...] 2022 TIME: 12:46 PM documented in this encounterChildren[facility]22 NoteHNO ID: [id number] Author: Breezy Muñoz, DO Service: ? Author Type: Physician Type: Progress Notes Filed: 01/17/2022 3:48 PM Note Text: SERVICE DATE: January 17, 2022 PCP: Essie Ryan, NIURKA, HUMAN RESOURCES BENEFITS COORDINATOR Patient was self-referred. Subjective Patient ID: Stacey [...] x 4 Crohn's disease without complication (HCC) [id number] Pulmonary Htn (Hcc) Obese Nirmala (Obstructive Sleep [...] (primary encounter diagnosis) Plan: CONSULT TO [facility] (M51.27) Lumbago-sciatica due to displacement [...] Sahu DATE: January 17, 2022 TIME: 3:46 [facility]07-25-2022 History of Present illness Narrative* Breezy Muñoz DO - 01/17/2022 3:42 PM EDT SERVICE DATE: January 17, 2022 PCP: Essie Ryan, NIURKA, NIURKA Patient was self-referred. Subjective Patient ID: Stacey [...] x 4 Crohn's disease without complication (HCC) [id number] Pulmonary Htn (Hcc) Obese Nirmala (Obstructive Sleep Apnea) Gerd (Gastroesophageal Reflux Disease) Crohn's Disease of Intestine (Hcc) Enterolith of Small Intestine (Hcc) Bipolar Disease, Chronic (Hcc) Other Hyperlipidemia PAST MEDICAL HISTORY Diagnosis Date Abnormal uterine bleeding s/p hysterectomy Bipolar disorder (HCC) Crohn's disease of intestine (HCC) s/p surgery 2000's GERD (gastroesophageal reflux disease) Obese NIRMALA (obstructive [...] hip (primary encounter diagnosis) Plan: CONSULT TO [facility] (M51.27) Lumbago-sciatica due to displacement [...] 2022 TIME: 3:46 PM documented in this encounterChildren[facility]07-[facility]-2022 NoteHNO ID: [id number] Author: Breezy Muñoz DO Service: ? Author Type: Physician Type: Progress Notes Filed: 12/31/2021 1:10 PM Note Text: SERVICE DATE: December 31, 2021 PCP: Essie Ryan CNP, NIURKA Patient was self-referred. Subjective Patient ID: Stacey [...] x 4 Crohn's disease without complication (HCC) [id number] Pulmonary Htn (Hcc) Obese Nirmala (Obstructive Sleep [...] trochanteric bursa Informed Consent Consent Obtained: Verbal [place] Protocol A moment to CARE was completed. (more content not included)...[facility]07-08-2022 History of Present illness Narrative* Breezy Muñoz, - 12/31/2021 12:54 PM EDT Associated Order(s): Large Joint Arthro/Inj: R greater trochanteric bursa Post-Procedure Diagnose(s): Trochanteric bursitis of right hip SERVICE DATE: December 31, 2021 PCP: Essie Ryan CNP, NIURKA Patient was self-referred. Subjective Patient ID: Stacey [...] x 4 Crohn's disease without complication (HCC) [id number] Pulmonary Htn (Hcc) Obese Nirmala (Obstructive Sleep [...] trochanteric bursa Informed Consent Consent Obtained: Verbal [place] Protocol A moment to CARE was completed. [...] 2021 TIME: 1:05 PM documented in this encounterChildren[facility]06-[facility] Evaluation note* Encounter Date Diagnosis Assessment Notes [...] refer her to Dr. Christian with the [facility]. [employer] Other 05-25-2022 Evaluation note* Encounter Date Diagnosis [...] I will see her with those results. [employer] Other 06-21-2021 History of Past illness Narrative* Problem Noted Date Resolved Date Generalized abdominal pain 12/14/202012/16 documented as of this encounter (statuses as of 12/31/2021) [facility]06-[facility] History of Past illness Narrative* Problem Noted Date Resolved Date Generalized abdominal pain 12/14/202012/16 documented as of this encounter (statuses as of 01/17/2022) [facility] History of Past illness Narrative* Problem Noted Date Resolved Date Generalized abdominal pain 12/14/202012/16 documented as of this encounter (statuses as of 03/13/2022) [facility] No data available for this section [facility] Future Appointments Appointment Date:10/24/2022 11:30:00 AM Scheduled Provider:Jose GARCIA MD Location:[facility] Appointment Type:URO Office Visit [facility] Evaluation + Plan note Future Appointments Appointment Date:05/29/2023 02:30:00 PM Scheduled Provider:Jose GARCIA MD Location:[facility] Appointment Type:URO Office Visit Future Scheduled Tests Laboratory* Calprotectin, Fecal 11/24/22 * CBC w/ Auto Diff 11/24/22 * Comprehensive Metabolic Panel 11/24/22 * C-Reactive Protein 11/24/22 Radiology* CT Abdomen/Pelvis w/contrast (enterography) 11/24/22 [facility] Evaluation + Plan note Future Appointments Appointment Date:05/29/2023 02:30:00 PM Scheduled Provider:Jose GARCIA MD Location:[facility] Appointment Type:URO Office Visit Future Scheduled Tests Laboratory* Calprotectin, Fecal 11/24/22 * CBC w/ Auto Diff 11/24/22 * Comprehensive Metabolic Panel 11/24/22 * C-Reactive Protein 11/24/22 [facility] Future Appointments Appointment Date:02/02/2023 01:00:00 PM Scheduled Provider:Ignacia KHAN MD Location[facility] App[facility]ment Type:[facility] Follow Up Appointment Date:05/29/2023 02:30:00 PM Scheduled Provider:Jose GARCIA MD Location:[facility] Appointment Type:URO Office Visit Future Scheduled Tests Laboratory* Calprotectin, Fecal 11/24/22 [facility] Future Appointments Appointment Date:05/29/2023 02:30:00 PM Scheduled Provider[facility] Office Visit Diagnostic Tests Pending * Calprotectin, Fecal 02/02/23 [facility] Future Appointments Appointment Date:10/02/2023 03:00:00 PM Scheduled Provider:Jose GARCIA MD Location:[facility] Appointment Type:URO Office Visit [facility] evaluation note* Diagnosis Trochanteric bursitis of right hip- Primary Enthesopathy of hip region documented in this encounter [facility] noteNo InformationNort [facility] 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 documented in this encounter [facility] note* Diagnosis Tendinopathy of right gluteal region- Primary Trochanteric bursitis of right hip Enthesopathy of hip region Chronic bilateral low back pain without sciatica Lumbar spondylosis Lumbosacral spondylosis without myelopathy documented in this encounter [facility] note* Diagnosis Lumbar radiculopathy- Primary Thoracic or lumbosacral neuritis or radiculitis, unspecified documented in this encounter [facility] System[facility] general Narrative - Reported* Type Description Date Medical History acid reflux Surgical History biopsy of intestines Surgical History hysterectomy [employer] Other Hospital Discharge instructions No data available for this section [facility] InstructionsNot on filedocumented in this encounter [facility] note No data available for this section [facility] Summary Purpose Family History No Family History Records FoundNo Family History Records FoundNo Family History Records FoundNo Family History Records FoundNo Family History Records Found No data available for this section No Family History Records FoundNo Family History Records FoundNo Family History Records Found Advance Directives No Advanced Directives Records FoundDocuments on File Type Date Recorded Patient Marketing Systems Analyst Expl anation Advance Directive(s) 12/12/2020 8:14 PM Documents on File Type Date Recorded Patient Marketing Systems Analyst Expl anation Advance Directive(s) 12/12/2020 8:14 PM Reason for Referral Specialty Diagnoses / Procedures Referred By Contac t Referred To Contact Diagnoses Trochanteric bursitis of right hip Tendinopathy of right gluteal region Chronic bilateral low back pain without sciatica Lumbar spondylosis Procedures CONSULT TO CHIROPRACTOR OFFICE/OUTPATIENT [facility] 60-74 MINUTES Shiraz Bo DO [address] [place] [address] Referral ID Status Reason Start Date Expiration Date Visits Requested Visits Authorized [id number] Pending Review PCP Requested Referral 02/21/2022 02/21/2023 1 1 Specialty Diagnoses / Procedures Referred By Contac t Referred To Contact Sports Medicine Diagnoses Trochanteric bursitis of right hip Tendinopathy of right gluteal region Procedures CONSULT TO SPORTS MEDICINE OFFICE/OUTPATIENT [facility] 60-74 MINUTES Shiraz Bo DO [address] [place] [address] Referral ID Status Reason Start Date Expiration Date Visits Requested Visits Authorized [id number] Authorized PCP Requested Referral 02/21/2022 02/21/2023 1 1 Specialty Diagnoses / Procedures Referred By Contac t Referred To Contact [facility] Diagnoses Trochanteric bursitis of right hip Lumbago-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 Procedures CONSULT TO [facility] OFFICE/OUTPATIENT [facility] 60-74 MINUTES Breezy Muñoz, [place] [address] Referral ID Status Reason Start Date Expiration Date Visits Requested Visits Authorized [id number] Authorized PCP Requested Referral 01/17/2022 01/17/2023 1 1 Reason evaluate and treat. Gluteal tendon tear vs greater trochanteric bursitis Please refer to Bang Christian MD, Orthopaedic Surgery, [facility] Diagnosis 1 Trochanteric bursiti s, right hip (M70.61) Referral Organization [facility] Referring Provider First Name Alexis Referring Provider Last Name [place] II Referring Provider Specialty Orthopedic Surgery Referred Organization [facility] Referred Address [address],[place], [place],[address] Referred Provider Specialty ORTHOPEDIC S URGEON Referral [...] section and content) DATE CREATED AUTHOR 12/19/2017 [facility] DATE CREATED AUTHOR AUTHOR'S ORGANIZ ATION 12/08/2021 [facility] DATE CREATED AUTHOR AUTHOR'S ORGANIZ ATION 03/26/2022 [facility] DATE CREATED AUTHOR AUTHOR'S ORGANIZ ATION 12/04/2022 [facility] DATE CREATED AUTHOR AUTHOR'S ORGANIZ ATION 12/04/2022 [facility] DATE CREATED AUTHOR AUTHOR'S ORGANIZ ATION 07/02/2023 [facility] DATE CREATED AUTHOR AUTHOR'S ORGANIZ ATION 08/02/2023 [facility] DATE CREATED AUTHOR AUTHOR'S ORGANIZ ATION 08/27/2023 [facility] dical Specialists EPIC REASON FOR VISIT (unrecogniz ed section and content) Reason Comments New Specialty Diagnoses / Procedures Referred By Contac t Referred To Contact Orthopedics / ORTHOPAEDIC SURGERY Diagnoses Greater Trochanteric Bursitis right hip vs Gluteal Tendon tear *OUTSIDE IMG PT TO BRING Procedures LANA NEW NO XRAY Alexis Saenz II, MD [address] [place] [address] Breezy Muñoz, [facility] [address] [place] [address] Referral ID Status Reason Start Date Expiration Date Visits Requested Visits Authorized [id number] Authorized Financial Clearance Not Required 12/24/2021 01/23/2022 99 99 Reason Comments Follow Up Reason Comments New Patient Evaluation Lower back pain/R ight side sciatica Specialty Diagnoses / Procedures Referred By Contac t Referred To Contact Spine Alvin Diagnoses Trochanteric bursitis of right hip Lumbago-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 Procedures [facility] OFFICE/OUTPATIENT [facility] 60-74 MINUTES Breezy Muñoz, [facility] [address] [place] [address] Referral ID Status Reason Start Date Expiration Date V isits Requested Visits Authorized [id number] Closed PCP Requested Referral 01/17/2022 01/17/2023 1 1 Reason Comments Hip Pain Source Comments (unrecognize d section and content) In the event this informatio n is protected by the Federal Confidentiality of Alcohol and Drug Abuse Patient Records regulations: The Federal rules restrict any use of the information to criminally investigate or prosecute any alcohol or drug abuse patient.[facility] the event this information is protected by the Federal Confidentiality of Alcohol and Drug Abuse Patient Records regulations: The Federal rules restrict any use of the information to criminally investigate or prosecute any alcohol or drug abuse patient.[facility] the event this information is protected by the Federal Confidentiality of Alcohol and Drug Abuse Patient Records regulations: The Federal rules restrict any use of the information to criminally investigate or prosecute any alcohol or drug abuse patient.[facility] Care Teams (unrecognized sec tion and content) Operating System Programmer Relationship Specialty Start Date End Date Essie Ryan CNP PCP - General Family Practice 07/22/16 Adán Torres Obstetrics 07/22/16 Alexis Saenz II, MD [address] [place] [address] Referring Orthopedics 12/13/21 Operating System Programmer Relationship Specialty Start Date End Date Essie Ryan CNP PCP - General Family Practice 07/22/16 Adán Torres DO Obstetrics 07/22/16 Alexis Saenz II, MD [address] [place] [address] Referring Orthopedics 12/13/21 Operating System Programmer Relationship Specialty Start Date End Date Essie Rayn CNP PCP - General Family Practice 07/22/16 Melissa Adán Breezy Obstetrics 07/22/16 Alexis Saenz II, MD [address] [place] [id number] Referring Orthopedics 12/13/21 Operating System Programmer Relationship Specialty Start Date End Date Essie Ryan, [employer] CALEND[employer]ER-H[employer] RESOURCES BENEFITS COORDINATOR [address] [place] [address] PCP - General Nurse Practitioner 10/03/18 FOR [...] BE BASED ON THE PRIMARY CLINICAL RECORDS. [employer] provides no warranty or guarantee of the accuracy or completeness of information in this document.
--- NOTE | 2023-08-29 09:57 | XR_ITS ---
The [address] [address] Patient Name: GAMAL FIGUEROA MRN: [id number] date: 1975 Sex: F Assigned Patient Location: RAD Current Patient Location: RAD Accession/Order Number: [id number] Exam Date: 08/29/2023 10:06 Report Date: 08/29/2023 10:40 At the request of: NON-STAFF PHYSICIAN Procedure: XR hip RT 2V w/ pelvis PROCEDURE: XR hip RT 2V w/ pelvis COMPARISON: None. HISTORY: Right Hip Pain M25.551 FINDINGS: BONES:No acute fracture or dislocation. Marginal osteophyte formation bilateral acetabula. SOFT TISSUES:Negative. No visible soft tissue swelling. EFFUSION:None visible. OTHER: Right upper quadrant calcifications cannot determine if this represents foreign bodies or calcified gallstones XR/XR hip RT 2V w/ pelvis IMPRESSION: Bilateral marginal acetabular osteophyte formation Electronically authenticated by: PAULETTE GALVAN Date: 08/29/2023 10:40
== END 2023-08-29 09:51 | disposition home or self-care (01) ==
LOC: RAD 09:51
PROVIDERS: PCP Nurse Practitioner
DX: M25.551 Pain in right hip (principal); G89.29 Other chronic pain; M25.752 Osteophyte, left hip; M25.751 Osteophyte, right hip
CPT/HCPCS: 73502

== ENCOUNTER 2023-11-04 21:00 | Outpatient (OUT) | payer OTHER, SELFPAY ==
--- OUTSIDE RECORDS SUMMARY | 2023-11-06 07:47 | XMS_ITS | CCD ---
Author Organization [facility] Care Team Providers Care Checker Stocker Name Role Phone PHYSICIAN, DEFAULT Unavailable Unavailable PHYSICIAN, DEFAULT Unavailable Unavailable AICHHOLZ, ESSIE Unavailable Unavailable PHYSICIAN, DEFAULT Unavailable Unavailable PHYSICIAN, DEFAULT Unavailable Unavailable AICHHOLZ, ESSIE Unavailable Unavailable PHYSICIAN, DEFAULT Unavailable Unavailable PHYSICIAN, DEFAULT Unavailable Unavailable [place] ESSIE Unavailable Unavailable Alexis Saenz II Unavailable Essie Ryan CNP Primary Care Provider Adán Torres Unavailable Dany ARDON MD, Robert M Unavailable Adán Torres DO Unavailable ESSIE RYAN Primary Care Physician Aicandersonz Essie BAH Primary Care Provider Adán Torres DO Unavailable Dany ARDON MD, Robert M Unavailable ESSIE RYAN Primary Care Unavailable SHIRAZ BO Attending Unavailable BREEZY MUÑOZ Referring Unavailable ESSIE RYAN Primary Care Unavailable BREEZY MUÑOZ Attending Unavailable BREEZY MUÑOZ Attending Unavailable AZ, ESSIE SPANGLER Primary Care Unavailable CAN VALERA Attending Unavailable CAN VALERA Consulting Unavailable AZ, NIURKA ESSIE Primary Care Unavailable CAN VALERA Admitting Unavailable DR MARKO PERRY Admitting Unavailable ANDREW ., DR MARKO Stafford Attending Unavailable AICHHOLKamila, BRUSH HOLDER ASSEMBLER ESSIE Primary Care Unavailable ARTURO VANEGAS Consulting Unavailable MORALES ., DR MARKO Stafford Attending Unavailable MORALES ., DR MARKO Stafford Consulting Unavailable AICHHOLZ, BRUSH HOLDER ASSEMBLER ESSIE Primary Care Unavailable MORALES ., DR MARKO Stafford Admitting Unavailable APLING, SHARONA B Attending Unavailable APLING, SHARONA B Consulting Unavailable APLING, SHARONA B Admitting Unavailable AICHHOLZ, BRUSH HOLDER ASSEMBLER ESSIE Primary Care Unavailable PAULETTE PHIPPS Unavailable AICHHOLZ, BRUSH HOLDER ASSEMBLER ESSIE Primary Care Unavailable GARCIA ., DR BAILEY Attending Unavailable GARCIA ., DR BAILEY Consulting Unavailable GARCIA ., DR BAILEY Admitting Unavailable WEST, DR PAULETTE León Consulting Unavailable MORALES ., DR MARKO Stafford Admitting Unavailable MORALES ., DR MARKO Stafford Attending Unavailable MORALES ., DR MARKO Stafford Consulting Unavailable AICHHOLZ, BRUSH HOLDER ASSEMBLER ESSIE Primary Care Unavailable DELANEY ., ARTURO Consulting Unavailable MORALES ., DR MARKO Stafford Admitting Unavailable MORALES ., DR MARKO Stafford Attending Unavailable AICHHOLZ, BRUSH HOLDER ASSEMBLER ESSIE Primary Care Unavailable YOBANY ., DR RASMUSSEN Attending Unavailable AICHHOLZ, BRUSH HOLDER ASSEMBLER ESSIE Primary Care Unavailable YOBANY ., DR RASMUSSEN Admitting Unavailable WEST, DR PAULETTE León Consulting Unavailable YOBANY ., DR RASMUSSEN Consulting Unavailable AICHHOLZ, BRUSH HOLDER ASSEMBLER ESSIE Primary Care Unavailable GARCIA ., DR BAILEY Admitting Unavailable GARCIA ., DR BAILEY Attending Unavailable GARCIA ., DR BAILEY Consulting Unavailable ZIEBER, DR PREET Palafox Consulting Unavailable TIMMIS, DR RED Attending Unavailable TIMMIS, DR RED Consulting Unavailable TIMMIS, DR RED Admitting Unavailable AICHHOLZ, BRUSH HOLDER ASSEMBLER ESSIE Primary Care Unavailable ZIEBER, DR PREET Palafox Consulting Unavailable TIMMIS, DR RED Attending Unavailable TIMMIS, DR RED Consulting Unavailable TIMMIS, DR RED Admitting Unavailable AICHHOLZ, BRUSH HOLDER ASSEMBLER ESSIE Primary Care Unavailable ZIEBER, DR PREET Palafox Consulting Unavailable TIMMIS, DR RED Attending Unavailable TIMMIS, DR RED Consulting Unavailable AICHHOLZ, BRUSH HOLDER ASSEMBLER ESSIE Primary Care Unavailable TIMMIS, DR RED Admitting Unavailable WEST, DR PAULETTE León Consulting Unavailable AICHHOLZ, BRUSH HOLDER ASSEMBLER ESSIE Primary Care Unavailable GARCIA ., DR BAILEY Attending Unavailable GARCIA ., DR BAILEY Consulting Unavailable GARCIA ., DR BAILEY Admitting Unavailable ZIEBER, DR PREET Palafox Consulting Unavailable LAKSHMIPATHY ., NARENDRANATH Attending Marleni vailable AICHHOLZ, BRUSH HOLDER ASSEMBLER ESSIE Primary Care Unavailable LAKSHMIPATHY ., NARENDRANATH Admitting Marleni vailable MORALES ., DR MARKO Stafford Admitting Unavailable MORALES ., DR MARKO Stafford Attending Unavailable MORALES ., DR MARKO Stafford Consulting Unavailable AICHHOLZ, BRUSH HOLDER ASSEMBLER ESSIE Primary Care Unavailable DELANEY ., ARTURO Consulting Unavailable AICHHOLZ, BRUSH HOLDER ASSEMBLER ESSIE Primary Care Unavailable WEST, DR PAULETTE León Consulting Unavailable GARCIA ., DR BAILEY Attending Unavailable GARCIA ., DR BAILEY Admitting Unavailable AICHHOLZ, BRUSH HOLDER ASSEMBLER ESSIE Consulting Unavailable YOBANY ., DR RASMUSSEN Attending Unavailable YOBANY ., DR RASMUSSEN Consulting Unavailable AICHHOLZ, BRUSH HOLDER ASSEMBLER ESSIE Primary Care Unavailable YOBANY ., DR RASMUSSEN Admitting Unavailable AICHHOLZ, BRUSH HOLDER ASSEMBLER ESSIE Primary Care Unavailable AICHHOLZ, BRUSH HOLDER ASSEMBLER ESSIE Attending Unavailable AICHHOLZ, BRUSH HOLDER ASSEMBLER ESSIE Consulting Unavailable AICHHOLZ, BRUSH HOLDER ASSEMBLER ESSIE Admitting Unavailable DELANEY ., ARTURO Admitting Unavailable DELANEY ., ARTURO Attending Unavailable AICHHOLZ, BRUSH HOLDER ASSEMBLER ESSIE Primary Care Unavailable ZIEBER, DR PREET Palafox Consulting Unavailable DELANEY ., ARTURO Consulting Unavailable TIMMIS, DR RED Attending Unavailable TIMMIS, DR RED Consulting Unavailable TIMMIS, DR RED Admitting Unavailable AICHHOLZ, BRUSH HOLDER ASSEMBLER ESSIE Primary Care Unavailable ZIEBER, DR PREET Palafox Consulting Unavailable DIAB ., EDNA Attending Unavailable DIAB ., EDNA Admitting Unavailable MARKER ., DR JIMÉNEZ Consulting Unavailable AICHHOLZ, BRUSH HOLDER ASSEMBLER ESSIE Primary Care Unavailable DIAB ., EDNA Consulting Unavailable OWOYELE, MISTY Consulting Unavailable AICHHOLZ, BRUSH HOLDER ASSEMBLER ESSIE Primary Care Unavailable AICHHOLZ, BRUSH HOLDER ASSEMBLER ESSIE Attending Unavailable AICHHOLZ, BRUSH HOLDER ASSEMBLER ESSIE Consulting Unavailable AICHHOLZ, BRUSH HOLDER ASSEMBLER ESSIE Admitting Unavailable RAIN, DR PREET Palafox Consulting Unavailable MORALES ., DR MARKO Stafford Attending Unavailable MORALES ., DR MARKO Stafford Admitting Unavailable AICHHOLZ, BRUSH HOLDER ASSEMBLER ESSIE Primary Care Unavailable MISC, DR MCCARTHY Referring Unavailable GARCIA ., DR BAILEY Consulting Unavailable MORALES ., DR MARKO Stafford Consulting Unavailable MORAIMACAN HERNANDEZ Attending Unavailable Aichholz CHECK CLERK-BRUSH HOLDER ASSEMBLER, Essie Magdaleno Primary Care Provider Block, Juliana Unavailable SALAM, Beth Referring Unavailable SALAM, Beth Admitting Unavailable SALAM, Beth Attending Unavailable SALAM, Beth Admitting Unavailable SALAM, Beth Attending Unavailable SALAM, Beth Admitting Unavailable SALAM, Beth Attending Unavailable SALAM, Beth Admitting Unavailable SALAM, Beth Attending Unavailable SALAM, Beth Attending Unavailable FAWWAD, LUNDBERG Referring Unavailable SALAM, Beth Attending Unavailable SALAM, Beth Attending Unavailable SALAM, Beth Referring Unavailable Jose GARCIA Attending Unavailable ANGELICA, LESLIE Medina Attending Unavailable ANGELICA, LESLIE Medina Attending Unavailable GANNON, PJ E Attending Unavailable GANNON, PJ E Referring Unavailable AICHHOLZ, ESSIE J Primary Care Unavailable GANNON, PJ E Admitting Unavailable GANNON, PJ E Attending Unavailable AICHHOLZ, ESSIE J Referring Unavailable AICHHOLZ, ESSIE J Primary Care Unavailable EVANS ANDERSON Attending Unavailable AICHHOLZ, ESSIE J Referring Unavailable AICHHOLZ, ESSIE J Primary Care Unavailable IMANI CHAN M Attending Unavailable AICHHOLZ, ESSIE J Referring Unavailable AICHHOLZ, ESSIE J Primary Care Unavailable NIENBERGIMANI M Attending Unavailable AICHHOLZ, ESSIE J Referring Unavailable AICHHOLZ, ESSIE J Primary Care Unavailable AICHHOLZ, ESSIE Attending Unavailable TIMMIS, NEDA H Attending Unavailable AICHHOLZ, ESSIE Attending Unavailable MARY DANIELS Attending Unavailable AICHHOLZ, ESSIE Referring Unavailable TIMMISNEDA H Attending Unavailable AICHHOLZ, ESSIE Referring Unavailable AICHHOLZ, ESSIE Attending Unavailable FAWWAD, Attending Unavailable Allergies Allergy Classification Reported Allergen(s) Allergy Type Date of Onset Reaction(s) Facility (5 sources) Penicillins; Translations: [PENICILLINS] Drug allergy (disorder) 09-21-2011 [facility] (3 sources) Penicillin V Drug Allergy Fever [facility] Other (6 sources) Penicillins Drug Allergy 07-27-2016 Unknown [facility] (8 sources) History of - penicillin allergy (context-depende nt category); Translations: [H/O: penicillin allergy] Drug allergy [facility] (1 source) Penicillin Drug Allergy Fever [facility] Other Medications Current Medications Medication Drug Class(es) Dates Sig (Normalized) Sig (Original) ambrisentan 10 mg oral tablet (3 sources) Endothelin Receptor Antagonist take 10 mg by mouth once daily ambrisentan (LETAIRIS ORAL) Take 10 mg by mouth daily. 0 Active atorvastatin 10 mg oral tablet (7 sources) HMG-CoA Reductase Inhibitor Start: 04-22-2023 take 1 tablet by mouth once daily atorvastatin (LIPITOR) 10 mg tablet take 1 tablet by mouth once daily 0 04/22/2023 Active Start: 10-13-2020 take 1 tablet by billie th once daily atorvastatin (LIPITOR) 20 mg tablet Take 20 mg by mouth once daily. 0 10/13/2020 Active Comment on above: Take 20 mg by mouth once daily. busPIRone hydrochloride 7.5 mg oral tablet (4 sources) Start: 05-29-2023 busPIRone 7.5 mg oral tablet Refills(s) 0 Start Date: 05/29/23 Status: Ordered take 0.5 tablet by m outh in the morning, then take 0.5 tablet by mouth at bedtime busPIRone (BUSPAR) 15 mg tablet Take 0.5 tablets (7.5 mg total) by mouth in the morning and 0.5 tablets (7.5 mg total) before bedtime. 0 Active carBAMazepine 200 mg oral tablet (6 sources) Mood Stabilizer carBAMazepine (TEGretol) 200 mg tablet Take 300 mg by mouth nightly. moods [facility] 0 Active Comment on above: Take 300 mg by mouth daily at bedtime. cetirizine hydrochloride 5 mg oral tablet (6 sources) Histamine-1 Receptor Antagonist take 1 tablet by mouth in the morning cetirizine (ZyrTEC) 5 mg tablet Take 1 tablet (5 mg total) by mouth in the morning. 0 Active take 1 tablet by mouth once tracee y cetirizine (ZYRTEC) 10 mg tablet Take 10 mg by mouth once daily. 0 Active Comment on above: Take 10 mg by mouth once daily. citalopram 40 mg oral tablet (6 sources) Serotonin Reuptake Inhibitor take 1 tablet by mouth once daily citalopram (CeleXA) 40 mg tablet Take 40 mg by mouth daily. 0 Active take 1 tablet by mouth once tracee y citalopram (CELEXA) 20 mg tablet Take 20 mg by mouth once daily. 0 Active Comment on above: Take 20 mg by mouth once daily. meloxicam 15 mg oral tablet (5 sources) Nonsteroidal Anti-inflammatory Drug Start: 09-12-2023 take 1 tablet by mouth in the morning meloxicam (MOBIC) 15 mg tablet Indications: Chronic right hip pain Take 1 tablet (15 mg total) by mouth in the morning. 30 tablet 1 09/12/2023 Active Start: 12-09-2021 take 1 tablet by billie th every twenty-four hours Meloxicam 15 MG 1 tablet Orally Once a day for 30 day(s) Nov, Active Aleve (7 sources) Nonsteroidal Anti-inflammatory Drug Start: 02-25-2022 take 1 mg by mouth every twelve hours Aleve mg, Oral, q12hr, Refills(s) 0 Start Date: 02/25/22 Status: Ordered Prilosec (17 sources) Proton Pump Inhibitor Start: 12-23-2010 Prilosec Oral, Daily, Refills(s) 0 Start Date: 12/23/10 Status: Ordered take 1 capsule by mouth in the m orning omeprazole (PriLOSEC) 40 mg capsule Take 1 capsule (40 mg total) by mouth in the morning. G[facility] 0 Active PriLOSEC 10 MG a s directed Orally Active Comment on above: Take 40 mg by mouth once daily. polyethylene glycol 3350 125241 mg / potassium chloride 1480 mg / sodium bicarbonate 5720 mg / sodium chloride 63997 mg powder for oral solution (3 sources) Osmotic Laxative Start: 11-28-2022 NuLYTELY [place] oral powder for reconstitution See Instructions, 1 EA, Refill(s) 0, See physician instructions prior to procedure., [facility] #[id number], 155, cm, 11/24/22 13:47:00 EDT, Height/Length Dosing, [...] on above: Take 2 tablets by mo ut every 6 hours as needed. 5 ml [...] # 2 tab(s), Refills(s) 0, Pharmacy: [facility] #[id number], 155, cm, 03/03/22 15:04:00 EDT, Height/Length Dosing, 90, kg, 02/25/22 10:22:00 EDT, Rubio... Start Date: 03/03/22 Status: Ordered colchicine 0.6 mg oral tablet (3 sources) take 1 tablet by mouth in the [...] (DECADRON) pravastatin sodium 40 mg oral tablet (3 sources) HMG-CoA Reductase Inhibitor take 1 tablet by [...] urine] Onset: 04-26-2022 02-25-2022 Episodic Mood disorders (20 sources) Bipolar disorder; Translations: [Bipolar disorder, unspecified] [...] IN COLON SEQUELA] Onset: 09-23-2022 Episodic Other nervous system disorders (1 source) Other chronic pain; Translations: [Other chronic pain] Onset: 08-21-2023 Chronic Other non-traumatic joint disorders (7 sources) Pain in right hip; Translations: [PAIN IN RIGHT HIP] Onset: 11-17-2021 Resolved: 11-17-2021 Episodic Other non-traumatic joint disorders (4 sources) Hip pain; Translations: [Pain in right hip] Onset: 06-28-2023 09-12-2023 Episodic Other nutritional; endocrine; and metabolic disorders [...] disc displacement, lumbosacral region] Onset: 02-21-2022 Chronic Thyroid disorders (4 sources) Nontoxic multinodular goiter; Translations: [NONTOXIC MULTINODULAR GOITER] Onset: 09-06-2022 Chronic Thyroid disorders (4 sources) Disorder of thyroid, unspecified; Translations: [DISORDER OF THYROID UNSPECIFIED] Onset: 10-18-2022 Episodic Unclassified (1 source) LOW BACK PAIN, UNSPECIFIED; Translations: [LOW BACK PAIN, UNSPECIFIED] Onset: 08-08-2022 Unclassified (2 sources) CONTACT W/AND (SUSP) EXPOS COVID-19; Translations: [CONTACT W/AND (SUSP) EXPOS COVID-19] Onset: 01-27-2022 Unclassified (1 source) Chronic right hip pain [M25.551, G89.29] Onset: 09-01-2023 Past or Other Problems Problem Classification Problem Date Documented Date Episodic/Chronic Intestinal obstruction without hernia (3 sources) Enterolith of small intestine; Translations: [Other impaction of intestine] Onset: 12-14-2020 12-16-2020 Episodic Other connective tissue disease (7 sources) Trochanteric bursitis, right hip; Translations: [Trochanteric bursitis of right hip] Onset: 12-09-2021 Resolved: 12-09-2021 Episodic Other non-traumatic joint disorders (1 source) [...] MALIG NEOPLASM DIGESTIV ORGN] Onset: 02-10-2022 Episodic Spondylosis; intervertebral disc disorders; other back problems (6 sources) Chronic low back pain; Translations: [Chronic bilateral low back pain without sciatica] Onset: 05-03-2023 Episodic Sprains and strains (4 sources) Other [...] ity [facility] 08-01-2023 Lab Reports [id number]#1.00TIFF Normal [facility] 07-31-2023 Lab Reports [id number]#1.00TIFF Normal [facility] 07-28-2023 Lab Reports [id number]#1.00TIFF Normal [facility] Lab Reports [id number]#1.00TIFF Normal [facility] 07-26-2023 Lab Reports [id number]#1.00TIFF [facility] COVID/FLU/RSV RT-PCRon 07-11 SARS-CoV-2 (COVID-19) RNA IZAIAH+probe Ql (Unsp spec) Positive [facility] Other COVID/FLU/RSV RT-PCR Negative [facility] Other Ambulatory Visit Summaryon 1 07-30-2022 Ambulatory Visit Summary STACEY SAHU :1975 Visit Date:05/29/2023 Ambulatory Visit Instructions Your Diagnosis Kidney stones Gross hematuria Tests Performed Urnls Dip Stick Auto w/o Microscopy POC 00435 Your Care Team Attending Physician - JOSE [...] w/u Where: [facility] [address], [place] [address] [phone] Medications What How Much When Instructions Unchanged [...] Urnls Dip Stick Auto w/o Microscopy POC 01254 (05/29/2023) Bilirubin Urine Dipstick - Negative Blood Urine Dipstick - 3+ Large Glucose Urine Dipstick - Negative Ketones Urine Dipstick - Negative Leukocytes Urine Dipstick - Negative Nitrite Urine Dipstick - Negative Protein Urine Dipstick - Negative Specific [place] Urine Dipstick - >=1.030 Urine Appearance Urine [...] ? Santy (more content not included)... Normal [facility] Patient Educationon 05-29-20 Patient Education [...] these instructions at home: Medicines ? Take [id number] and prescription medicines only as told by [...] provider. Document Revised: 02/14/2022 Document Reviewed: 02/14/2022 [employer] Patient Education ? 2022 [employer] [facility] Urology Office/Clinic Noteon 05-29-2023 Urology [...] pelvis with tapering at [facility]. KUB 01/05/23 [facility] - 4mm renal stone in [place]. KUB [...] URL [facility] [address], [place] [address] [phone] Additional Instructions: 4 mos w/ metabolic w/u Patient Education Kidney Stones, Ejii-et-Bkug IImani, personally scribed for Dr. Garcia on [...] Dipstick: Negative (more content not included)... Normal [facility] Comment on above: Result Comment: [...] with voice recognition artificial intelligence software, specifically [employer] Vanity, RiskIQ and or Virtualmin. Substitutions may have occurred due to the inherent limitations of voice recognition and artificial intelligence software. ATTESTATION: Documentation services were performed after patient or guardian consented to allow [employer] to record this visit. DELVIN home care specialist and provider reviewed before signing. DELVIN: [...] H/O: penic (more content not included)... Normal [facility] Comment on above: Result Comment: Elec tronically Signed By: Ana Rosa Iglesias\.br\Date and Time Signed: 02/02/23 15:48 EDT\.br\Electronically Co-Signed By: BILL FELIX, Ignacia\.br\Date and Time Co-Signed: 02/06/23 14:00 EDT Calprotectin, Fecalon 2022 Calprotectin (Stl) [Mass/Mass] 87 mcg/gm Invalid Interpretation Code 0-120 [facility] Comment on above: Result Comment: Conc entration Interpretation Follow-Up < 5 - 50 ug/g Normal None >50 -120 ug/g Borderline Re-evaluate in 4-6 weeks >120 ug/g Abnormal Repeat as clinically indicated Performed at: [facility] [id number] MD Kody Hayes Performed By: #### 1 [id number] ####[facility] [address] [place] [address] Ambulatory Visit Summaryon 0 02-02-2023 Ambulatory Visit [...] FELIX, Jose Palafox Where: [facility] Jatinder Normal [facility] Auto Diffon 02-01-2023 Basophils/100 WBC (Bld) 2.7 % High 0.0-2.0 [facility] Comment on above: Order Comment: Order Added by Discern Expert. Performed By: #### 2 520212, [id number], 4759585, [id number], 3778167 ####[address] [place] [address] Basophils/Leukocyte s Auto (Bld) [Pure # fraction] 0.2 E9/L Normal 0.0-0.2 [facility] Comment on above: Order Comment: Order Added by Discern Expert. Performed By: #### 2 978612, 8448057, 9747099, 38800457, 0238133 ####[address] [place] [address] Eosinophils/100 WBC (Bld) 8.5 % High 0.0-8.0 [facility] Comment on above: Order Comment: Order Added by Discern Expert. Performed By: #### 2 504122, 7040775, 9965083, 17690358, 3365780 ####[address] [place] [address] Eosinophils/Leukocy karina Auto (Bld) [Pure # fraction] 0.7 E9/L High 0.0-0.5 [facility] Comment on above: Order Comment: Order Added by Discern Expert. Performed By: #### 2 574085, 3424782, 6954276, 90719484, 3440022 ####[address] [place] [address] Lymphocytes/100 WBC (Bld) 34.8 % Normal 14.0-50.0 [facility] Comment on above: Order Comment: Order Added by Discern Expert. Performed By: #### 2 580754, 9313065, 4808959, 79286831, 6314588 ####[address] [place] [address] Lymphocytes/Leukocy karina Auto (Bld) [Pure # fraction] 2.8 E9/L Normal 1.0-4.0 [facility] Comment on above: Order Comment: Order Added by Discern Expert. Performed By: #### 2 433248, 4308115, 3077749, 47220468, 2833294 ####[facility] [address] [place] [address] Monocytes/100 WBC (Bld) 9.4 % Normal 4.0-14.0 [facility] Comment on above: Order Comment: Order Added by Discern Expert. Performed By: #### 2 194880, 0829007, 1040658, 49172840, 5154124 ####[address] [place] [address] Monocytes/Leukocyte s Auto (Bld) [Pure # fraction] 0.8 E9/L Normal 0.2-1.0 [facility] Comment on above: Order Comment: Order Added by Discern Expert. Performed By: #### 2 056324, 9620812, 9517760, 86621134, 2099761 ####[address] [address] Neutrophils/100 WBC (Bld) 44.6 % Normal 36.0-75.0 [facility] Comment on above: Order Comment: Order Added by Discern Expert. Performed By: #### 2 762876, 7892610, 3885871, 98521676, 9870223 ####[address] [place] [address] Neutrophils/Leukocy karina Auto (Bld) [Pure # fraction] 3.5 E9/L Normal 2.0-7.5 [facility] Comment on above: Order Comment: Order Added by Discern Expert. Performed By: #### 2 353980, 9455944, 3970778, 78334389, 6157374 ####[address] [place] [address] CBC w/ Auto Diffon 3 Erythrocyte distribution width (RBC) [Ratio] 13.6 % Normal 10.9-14.2 [facility] Comment on above: Performed By: #### 2 317649, 3148657, 1433879, 34274291, 6335996 ####[facility] [address] [place] [address] Hematocrit (Bld) [Volume fraction] 39.5 % Normal 34.0-46.0 [facility] Comment on above: Performed By: #### 2 628329, 5753361, 0909329, 06008014, 4860220 ####[address] [address] Hemoglobin (Bld) [Mass/Vol] 13.3 g/dL Normal 12.0-16.0 [facility] Comment on above: Performed By: #### 2 469193, 4148780, 7178615, 05402147, 9604441 ####[address] [address] MCH (RBC) [Entitic mass] 29.1 pg Normal 27.0-34.0 [facility] Comment on above: Performed By: #### 2 612074, 0855938, 1436053, 04973879, 0768052 ####[address] [address] MCHC (RBC) [Mass/Vol] 33.7 g/dL Normal 31.4-36.0 [facility] Comment on above: Performed By: #### 2 097678, 0363276, 7888105, 68278875, 4657569 ####[address] [place] [address] MCV (RBC) [Entitic vol] 86.4 fL Normal 80.0-100.0 [facility] Comment on above: Performed By: #### 2 759447, 1347924, 0529421, 23142651, 4891482 ####[address] [place] [address] Platelet mean volume (Bld) [Entitic vol] 8.9 fL Normal 6.4-10.8 [facility] Comment on above: Performed By: #### 2 383083, 7924314, 5346391, 10797065, 9175442 ####[facility] [address] [place] [address] Platelets (Bld) [#/Vol] 274.0 E9/L Normal 150.0-500.0 [facility] Comment on above: Performed By: #### 2 066326, 4649904, 7601137, 79733905, 8667976 ####[facility] [address] [place] [address] RBC (Bld) [#/Vol] 4.6 E12/L Normal 4.3-5.9 [facility] Comment on above: Performed By: #### 2 688135, 1181810, 5524095, 04203389, 2166466 ####[facility] [address] [place] [address] WBC corrected for nucl RBC Auto (Bld) [#/Vol] 8.0 E9/L Normal 4.0-11.0 [facility] Comment on above: Performed By: #### 2 800798, 3183083, 5809555, 82810112, 9666685 ####[facility] [address] [place] [address] CHEMISTRYOrdered By: SYSTEM SYSTEM on 02-01-2023 Albumin [Mass/Vol] 4.0 g/dL Normal 3.3 - 5.0 gm/dL [facility] Remisol Albumin/Globulin [Mass ratio] 1.2 {ratio} Normal [...] 0.4 mg/dL Normal 0.0 - 1.1 mg/dL [facility] Calcium [Mass/Vol] 9.1 mg/dL Normal 8.9 - 11.1 mg/dL [facility] Chloride [Moles/Vol] 106 mmol/L Normal 101 - 111 mmol/L [facility] CO2 [Moles/Vol] 24 mmol/L Normal 21 - 31 mmol/L [facility] Creatinine [Mass/Vol] 0.9 mg/dL Normal 0.5 - 1.3 mg/dL FT Remisol CRP [Mass/Vol] 0.7 mg/dL Normal <=1.9mg/dL FT Remis ol GFR/1.73 sq M.predicted among non-blacks MDRD (S/P/Bld) [Vol rate/Area] 80 mL/min/1.73 m2 Normal >=59mL/min/1.73 m2 [facility] Chem S Globulin (S) [Mass/Vol] 3.2 g/dL Normal 1.4 - 4.0 gm/dL FT Remisol Glucose [Mass/Vol] 99 mg/dL Normal 55 - 199 mg/dL FT Remisol Potassium [Moles/Vol] 3.9 mmol/L Normal 3.5 - 5.3 mmol/L FT Remisol Protein [Mass/Vol] 7.2 g/dL Normal 6.0 - 7.8 gm/dL F [facility] Remisol Sodium [Moles/Vol] 139 mmol/L Normal 135 - 145 mmol/L FT Remisol Urea nitrogen [Mass/Vol] 15 mg/dL Normal 5 - 21 mg/dL FT Remisol Urea nitrogen/Creatinine [Mass ratio] 17 mg/mg Normal 10 - 20 FT Remisol CMPon 02-01-2023 Albumin [Mass/Vol] 4.0 g/dL Normal 3.3-5.0 [facility] Comment on above: Performed By: #### 2 194517, 6155139, 1081938, 41867464, 8179814 ####[facility] [address] [place] [address] Albumin/Globulin (S) [Mass conc ratio] 1.2 Normal 1.1-2.2 [facility] Comment on above: Performed By: #### 2 908645, 0565126, 7456179, 48399287, 9537198 ####[facility] [address] [place] [address] ALP [Catalytic activity/Vol] 53 Int._Unit/L Normal 21-98 [facility] Comment on above: Performed By: #### 2 775381, 4705434, 6857156, 58605726, 9969093 ####[facility] [address] [place] [address] ALT No additional P-5'-P [Catalytic activity/Vol] 18 Int._Unit/L Normal 6-46 [facility] Comment on above: Performed By: #### 2 877828, 1875376, 8658538, 33613589, 8541863 ####[facility] [address] [place] [address] Anion gap [Moles/Vol] 13 mmol/L Normal 6-16 [facility] Comment on above: Performed By: #### 2 072239, 5967252, 1060304, 02288233, 0099027 ####[address] [place] [address] AST [Catalytic activity/Vol] 18 Int._Unit/L Normal 5-43 [facility] Comment on above: Performed By: #### 2 147146, 3387550, 2008446, 66975613, 7519700 ####[facility] [address] [place] [address] Bilirubin [Mass/Vol] 0.4 mg/dL Normal 0.0-1.1 [facility] Comment on above: Performed By: #### 2 140551, 0116481, 9614406, 89928898, 8290641 ####[facility] [address] [place] [address] Calcium [Mass/Vol] 9.1 mg/dL Normal 8.9-11.1 [facility] Comment on above: Performed By: #### 2 477431, 1411991, 3788028, 09678847, 8940256 ####[facility] [address] [place] [address] Chloride [Moles/Vol] 106 mmol/L Normal 101-111 [facility] Comment on above: Performed By: #### 2 853286, 5227182, 6623001, 39601346, 6210168 ####[facility] [address] [place] [address] CO2 [Moles/Vol] 24 mmol/L Normal 21-31 [facility] Comment on above: Performed By: #### 2 300929, 4076400, 4294065, 49978262, 4665582 ####[facility] [address] [place] [address] Creatinine [Mass/Vol] 0.9 mg/dL Normal 0.5-1.3 [facility] Comment on above: Performed By: #### 2 297629, 7982561, 9787749, 45145084, 6418193 ####[facility] [address] [place] [address] Globulin (S) [Mass/Vol] 3.2 g/dL Normal 1.4-4.0 [facility] Comment on above: Performed By: #### 2 290303, 3877018, 4832466, 28202306, 8156584 ####[facility] [address] [place] [address] Glucose [Mass/Vol] 99 mg/dL Normal 55-199 [facility] Comment on above: Result Comment: If t his glucose result represents a fasting glucose, interpretation should refer to the following reference range: 55-99 mg/dL Performed By: #### 2 753349, 0868650, 6744658, 56475302, 4820031 ####[facility] [address] [place] [address] Potassium [Moles/Vol] 3.9 mmol/L Normal 3.5-5.3 [facility] Comment on above: Performed By: #### 2 573625, 4233012, 3839233, 90495852, 0253668 ####[facility] [address] [place] [address] Protein [Mass/Vol] 7.2 g/dL Normal 6.0-7.8 [facility] Comment on above: Performed By: #### 2 273542, 9915932, 5947218, 79357982, 0086428 ####[facility] [address] [place] [address] Sodium [Moles/Vol] 139 mmol/L Normal 135-145 [facility] Comment on above: Performed By: #### 2 915635, 9535251, 9156073, 05543762, 4118890 ####[facility] [address] [place] [address] Urea nitrogen [Mass/Vol] 15 mg/dL Normal 5-21 [facility] Comment on above: Performed By: #### 2 767146, 3791296, 8280700, 47263898, 3682925 ####[facility] [address] [place] [address] Urea nitrogen/Creatinine [Mass ratio] 17 No Units Normal 10-20 [facility] Comment on above: Performed By: #### 2 951247, 3104849, 6907409, 35565065, 4467372 ####[facility] [address] [place] [address] CRPon 02-01-2023 CRP [Mass/Vol] 0.7 mg/dL Normal <=1.9 [facility] Comment on above: Performed By: #### 2 521903, 5470883, 5241040, 77002516, 7700238 ####[facility] [address] [place] [address] Consent for Treatmenton Consent for Treatment [id number]#1.00CD:127 Normal [facility] HEMATOLOGYOrdered By: SYSTEM SYSTEM on [...] 8.9 fL Normal 6.4 - 10.8 fL [facility] HemeAutoSS Platelets (Bld) [#/Vol] 274.0 E9/L Normal 150.0 - 500.0 E9/L [facility] HemeAutoSS RBC (Bld) [#/Vol] 4.6 E12/L Normal 4.3 - 5.9 E12/L [facility] HemeAutoSS WBC corrected for nucl RBC Auto (Bld) [#/Vol] 8.0 E9/L Normal 4.0 - 11.0 E9/L [facility] HemeAutoSS eGFRon 02-01-2023 GFR/1.73 sq M.predicted among non-blacks MDRD (S/P/Bld) [Vol rate/Area] 80 mL/min/1.73 m2 Normal >=59 [facility] Comment on above: Order Comment: Order added by Discern Expert. Result Comment: Straddle Bug Driver gail kidney disease could be indicated at eGFR's of less than 60 mL/min/1.73m2. Kidney failure is indicated at less than 15 mL/min/1.73m2. Performed By: #### 2 830031, 1727633, 7386614, 43543017, 0466507 ####[facility] [address] [place] [address] XR Abdomen 1 Viewon 01-07-20 23 XR [...] DEBBIE Technologist: LEWIS Technical Comments Radiation Dose: Nancyr in mGy = na DAP = na Normal [facility] Consent for Treatmenton 12-24 Consent for Treatment [id number]#1.00CD:127 Normal [facility] Outside Colonoscopyon 2022 Outside Colonoscopy [id number]#2.00CD:127 Normal [facility] CT Abdomen/Pelvis w/contrast (enterography)on 12-09-2022 [...] Oral contrast amount in ml's: 1450 Normal [facility] Consent for Treatmenton 11-24 Consent for Treatment [id number]#1.00CD:127 Normal [facility] Gastroenterology Office/Clin ic Noteon 11-29-2022 [...] Olga Holt to record this visit. DELVIN home care specialist and provider reviewed before signing. DELVIN: [...] - Demetri (more content not included)... Normal [facility] Comment on above: Result Comment: Elec tronically Signed By: Jesse Bray\.br\Date and Time Signed: 11/24/22 16:24 EDT\.br\Electronically Co-Signed By: Ignacia KHAN MD\.br\Date and Time Co-Signed: 11/29/22 21:07 EDT Consent for Procedure/Surger yon 11-28-2022 Consent for Procedure/Surgery [id number]#1.00CD:127 [facility] Pre-Certification Formon Pre-Certification Form [id number]#1.00CD:127 [facility] Ambulatory Visit Summaryon 0 11-24-2022 Ambulatory Visit Summary STACEY SAHU :1975 Visit Date:11/24/2022 Ambulatory Visit Instructions Your Diagnosis Crohn's disease, small intestine Abdominal pain Chronic GERD Your Care Team Attending Physician - BILL FELIX, Ignacia Primary Care Physician - [place] BAH, ESSIE [...] [place] [facility] Invalid Interpretation Code Abdominal pain, Print Label By Order Location\.br\ CBC w/ Auto Diff, Blood, Routine collect, 11/24/22, Order for future visit, Lab Collect, Crohn's disease, small intestine [facility] 36on 11-23-2022 36 Please let her know her ECHO was normal. I updated my note with clearance for her upcoming surgery. Please send to surgeons office. She should follow-up with an attending in 3 months or sooner if needed. Thanks Normal [facility] Telephoneon 11-23-2022 Telephone [id number] Stacey Sahu Lisa 1975 F Date Provider Department [facility] Family History Problem Relation Age of Onset Coronary artery disease Father Family Status - Relation Status Age at Father Normal [facility] ECHOCARDIO M/2D COMPLETEon 0 11-22-2022 ECHOCARDIO M/2D COMPLETE Patient: STACEY SAHU. Exam Date: 11/22/2022 : 1975 Gender:F Ordering : CAN VALERA [facility] Admission #: [id number] Family : Order #: [id number] CLICK HERE TO VIEW EXAM ECHOCARDIOGRAM REPORT [...] Moran M.D. on 11/22/2022 at 17:44 Normal [facility] Ambulatory Visit Summaryon 0 11-08-2022 Ambulatory Visit Summary STACEY SAHU :1975 Visit Date:11/08/2022 Ambulatory Visit Instructions Your Diagnosis Gross hematuria Kidney stones Nocturia Tests Performed Urnls Dip Stick Auto w/o Microscopy POC 70658 XR Abdomen 1 View -- Results Pending [...] PM EDT With: Ignacia KHAN MD Where: [facility] Normal [address] [place] [address]- \.br\ You Need to Schedule the Following Appointments\.br\ Follow Up with LESLIE JUNG PA-C, URL When: In 6 months 05/11/2023 EST\.br\ Comments:\.br\ KUB\.br\ Where:\.br\ [address]br\ [place] [address]\.br\ [id number]\.br\ Medications\.br\ What How Much When Instructions\.br\ Unchanged naproxen (Aleve) Every 12 hours Contact prescribing physician if questions or concerns \.br\ Unchanged omeprazole (Prilosec) Every day Contact prescribing physician if questions or concerns \.br\ Test Results\.br\ Urnls Dip Stick Auto w/o Microscopy POC 78745 (11/08/2022)\.br\ Bilirubin Urine Dipstick - Negative\.br\ Blood Urine Dipstick - 3+ Large\.br\ Glucose Urine Dipstick - Negative\.br\ Ketones Urine Dipstick - Negative\.br\ Leukocytes Urine Dipstick - Negative\.br\ Nitrite Urine Dipstick - Negative\.br\ Protein Urine Dipstick - Negative\.br\ Specific [place] Urine Dipstick - 1.020\.br\ Urine Appearance Urine [...] instructions at home:\.br\ Medicines\.br\ ? \.br\ Take oeao-lgx-dehamyb and prescription medicines only as told by [...] blood stops without treatment.\.br\ ? \.br\ Take gtik-waz-zvshtwj and prescription medicines only as told by your health care provider.\.br\ ? \.br\ Drink enough fluid to keep your urine pale yellow.\.br\ This information is not intended to replace advice given to you by your health care provider. Make sure you discuss any questions you have with your health care provider.\.br\ Document Revised: 02/10/2021 Document Reviewed: 02/10/2021 [employer] Patient Education ? 2022 [employer].\.br\ \.br\ [facility] Office Visiton 11-08-2022 Follow-up visit [id number] Stacey Sahu 1975 F Date Provider Department Center 11/08/2022 CAN [facility]AN [facility] Family History Problem Relation Age of Onset Coronary artery disease Father Family Status - Relation Status Age at Father Level of Service:[address] [place] OFFICE/OUTPATIENT NEW MODERATE MDM 45-59 MINUTES Reason for Visit and Comments: Re-establish care [Other] Pulmonary Hypertension [818] Normal [facility] Patient Educationon 11-09-19 23 Patient Education Urology [...] these instructions at home: Medicines ? Take rtse-zlm-usuocgm and prescription medicines only as told by [...] the blood stops without treatment. ? Take hxbp-inv-zlchjzf and prescription medicines only as told by your health care provider. ? Drink enough fluid to keep your urine pale yellow. This information is not intended to replace advice given to you by your health care provider. Make sure you discuss any questions you have with your health care provider. Document Revised: 02/10/2021 Document Reviewed: 02/10/2021 [employer] Patient Education ? 2022 [employer]. Normal [facility] Urology Office/Clinic Noteon 11-08-2022 Urology [...] URL In 6 months 05/11/2023 EST [address] [place] [address] [phone] Additional Instructions: KUB Patient Education Hematuria, Adult Moni Batres personally scribed for Leslie Jung PA-C on [...] Protein Urine Dipstick: Negative (11/08/22 13:00:00) Specific [place] Urine Dipstick: 1.020 (11/08/22 13:00:00) Urine Appearance Urine Dipstick: Clear (11/08/22 13:00:00) Urine Color Urine Dipstick: Yellow (11/08/22 13:00:00) Urobilinogen Urine Dipstick: Normal 0.2-1 EU/dl (11/08/22 13:00:00) pH Urine Dipstick: 6 (11/08/22 13:00:00) Diagnostic Results Tests Reviewed: Reviewed UA, KUB [facility] Comment on above: Result Comment: Elec tronically Signed By: LESLIE JUNG PA-C\.br\Date and Time Signed: 11/08/22 13:46 EDT\.br\Electronically Co-Signed By: Moni Gonzáles MA\.br\Date and Time Co-Signed: 11/08/22 13:26 EDT RAD - MISCon 10-28-2022 RAD - MISC [id number]#1.00CD:127 [facility] US THYROID FN ASP BXon 10-28 US THYROID FN ASP BX Begin Addendum #1 COLLECTED DATE/TIME: 10/18/2022 13:19 EDT Final Diagnosis Report for [facility] [place] [place] (A/B) SOFT TISSUE MASS CEPHALAD TO THYROID; FINE NEEDLE ASPIRATION: -ATYPIA OF UNDETERMINED SIGNIFICANCE. -CYST CONTENT. NOTE: Sparsely cellular aspirate compromised of follicular cells with architectural atypia. Molecular testing or a repeat aspirate may be helpful if clinically indicated. The final diagnosis is based on a microscopic exam of retail representative sections. 10/25/[address] Caceres. [...] 2. Pathology results are pending. Normal [facility] XR KUB 1 VIEWon 10-27-2022 XR [...] PAULETTE GALVAN Date: 2022-10-27 07:19 Normal [facility] Provider Letteron 10-06-2022 Provider Letter October 06, 2022 STACEY [address] [place] [address] STACEY SAHU 1975 Dear Stacey , We [...] [facility] [address], [place] [address] Normal [facility] CT NECK ST W CONon [...] by: PREET RODRIGEZ Date: 2022-10-05 08:22 Normal [facility] Physician Referralon 023 Physician Referral [id number]#1.00CD:127 Normal [facility] CARDIAC DENZEL ADMITon 023 CK [Catalytic activity/Vol] 149 U/L Normal 26-192 [facility] Comment on above: Performed By: #### C MADMJANETHA, CMP ####[facility] [address] [place] [address]Dr. Nita Iverson CK.MB [Mass/Vol] 1.51 ng/mL Normal <=3.60 [facility] Comment on above: Performed By: #### C MADM LIPA, CMP ####[facility] [address] [place] [address]Dr. Nita Iverson HSTROP 4.1 pg/mL Normal 4.0-51.3 [facility] Comment on above: Result Comment: CUT- OFF POINTS HAVE BEEN ESTABLISHED BASED ON THE FOURTH UNIVERSAL DEFINITIONS OF MYOCARDIAL INFARCTION. THE UPPER REFERENCE LIMIT (URL) OF TROPONIN, DEFINED THE 99TH PERCENTILE OF cTnI DISTRIBUTION IN A REFERENCE POPULATION, HAS BEEN CONFIRMED THE DECISION THRESHOLD FOR PA DIAGNOSIS. Performed By: #### C MADM, LIPA, CMP ####[facility] [address] [place] [address]Dr. Nita Iverson ARIES 47 ng/mL Normal 9-82 [facility] Comment on above: Performed By: #### C JANETH DENSONA, CMP ####[facility] [address] [place] [address]Dr. Nita Iverson CBC AUTO DIFFon 09-21-2022 BASO # 0.1 103/ul Normal 0.0-0.1 [facility] Comment on above: Performed By: #### C BC #### [facility] [address] [place] [address] Dr. Nita Iverson Basophils/100 WBC (Bld) 0.8 % Normal 0.2-2.0 [facility] Comment on above: Performed By: #### C BC #### [facility] [address] [place] [address] Dr. Nita Iverson EO # 0.7 103/ul Normal 0.0-0.7 [facility] Comment on above: Performed By: #### C BC #### [facility] [address] [place] [address] Dr. Nita Iverson Eosinophils/100 WBC (Bld) 7.1 % Critically high 0.9-7.0 [facility] Comment on above: Performed By: #### C BC #### [facility] [address] [place] [address] Dr. Nita Iverson Erythrocyte distribution width (RBC) [Ratio] 12.3 % Normal 11.0-15.0 [facility] Comment on above: Performed By: #### C BC #### [facility] [address] [place] [address] Dr. Nita Iverson Hematocrit (Bld) [Volume fraction] 40.1 % Normal 36.0-48.0 [facility] Comment on above: Performed By: #### C BC #### [facility] [address] [place] [address] Dr. Nita Iverson Hemoglobin (Bld) [Mass/Vol] 13.6 g/dL Normal 12.0-16.0 [facility] Comment on above: Performed By: #### C BC #### [facility] [address] [place] [address] Dr. Nita Iverson IG # 0.02 10e3/ul Normal 0.00-0.03 [facility] Comment on above: Performed By: #### C BC #### [facility] [address] [place] [address] Dr. Nita Iverson IG % 0.2 % Normal 0.0-0.5 [facility] Comment on above: Performed By: #### C BC #### [facility] [address] [place] [address] Dr. Nita Iverson LYMPH # 3.0 103/ul Normal 1.2-3.8 [facility] Comment on above: Performed By: #### C BC #### [facility] [address] [place] [address] Dr. Nita Iverson Lymphocytes/100 WBC (Bld) 30.2 % Normal 20.5-60.0 [facility] Comment on above: Performed By: #### C BC #### [facility] [address] [place] [address] Dr. Nita Iverson MANUAL DIFF REQ NO Normal [facility] Comment on above: Performed By: #### C BC #### [facility] [address] [place] [address] Dr. Nita Iverson MCH (RBC) [Entitic mass] 30.0 pg Normal 26.7-34.0 [facility] Comment on above: Performed By: #### C BC #### [facility] [address] [place] [address] Dr. Nita Iverson MCHC (RBC) [Mass/Vol] 33.9 g/dL Normal 29.9-35.2 [facility] Comment on above: Performed By: #### C BC #### [facility] [address] [place] [address] Dr. Nita Iverson MCV (RBC) [Entitic vol] 88.3 fL Normal 81.0-99.0 [facility] Comment on above: Performed By: #### C BC #### [facility] [address] [place] [address] Dr. Nita Iverson MONO # 0.8 103/ul Normal 0.3-0.8 [facility] Comment on above: Performed By: #### C BC #### [facility] [address] [place] [address] Dr. Nita Iverson Monocytes/100 WBC (Bld) 7.8 % Normal 1.7-12.0 [facility] Comment on above: Performed By: #### C BC #### [facility] [address] [place] [address] Dr. Nita Iverson NEUT # 5.4 103/ul Normal 1.4-6.5 [facility] Comment on above: Performed By: #### C BC #### [facility] [address] [place] [address] Dr. Nita Iverson Neutrophils/100 WBC (Bld) 53.9 % Normal 43.0-75.0 [facility] Comment on above: Performed By: #### C BC #### [facility] [address] [place] [address] Dr. Nita Iverson Platelet mean volume (Bld) [Entitic vol] 10.4 fL Normal 9.5-13.5 [facility] Comment on above: Performed By: #### C BC #### [facility] [address] [place] [address] [address] Nita Iverson PLT 270 103/ul Normal 150-450 [facility] Comment on above: Performed By: #### C BC #### [facility] [address] [place] [address] [address] Nita Iverson RBC 4.54 106/ul Normal 4.20-5.40 [facility] Comment on above: Performed By: #### C BC #### [facility] [address] [place] [address] [address] Nita Iverson WBC 10.0 103/ul Normal 4.0-11.0 [facility] Comment on above: Performed By: #### C BC #### [facility] [address] [place] [address] ABD/PELV W CONon [...] MISTY SPEARS Date: 2022-09-21 21:41 Normal [facility] ER URINE PROFILEon 3 Bilirubin Ql (U) Negative Normal NEGATIVE [facility] Comment on above: Performed By: #### U MICRO, ERUR, PREGU ####[facility] [address] [place] [address]Dr. Nita Iverson Clarity (U) CLEAR Normal CLEAR [facility] Comment on above: Performed By: #### U MICRO, ERUR, PREGU ####[facility] [address] [place], [place] [address]Dr. Nita Iverson Color (U) LT. YELLOW Normal YELLOW [facility] Comment on above: Performed By: #### U MICRO, ERUR, PREGU ####[facility] [address] [place], [place] [address]Dr. Nita MARIEAHD A micrscopic examination will be performed if indicated. Normal [facility] Comment on above: Performed By: #### U MICRO, ERUR, PREGU ####[facility] [address] [place], [place] [address]Dr. Nita Iverson Glucose Ql (U) Negative Normal NEGATIVE [facility] Comment on above: Performed By: #### U MICRO, ERUR, PREGU ####[facility] [address] [place], [place] [address]Dr. Nita Iverson Hemoglobin Ql (U) LARGE Abnormal NEGATIVE [facility] Comment on above: Performed By: #### U MICRO, ERUR, PREGU ####[facility] [address] [place] [address]Dr. Nita Iverson Ketones Ql (U) Negative Normal NEGATIVE [facility] Comment on above: Performed By: #### U MICRO, ERUR, PREGU ####[facility] [address] [place] [address]Dr. Nita Kishor LEUKOCYTES Negative Normal NEGATIVE [facility] Comment on above: Performed By: #### U MICRO, ERUR, PREGU ####[facility] [address] [place] [address]Dr. Nita Iverson Nitrite Ql (U) Negative Normal NEGATIVE [facility] Comment on above: Performed By: #### U MICRO, ERUR, PREGU ####[facility] [address] [place], [place] [address]Dr. Janniejennifer Iverson pH (U) 6.5 [pH] Normal 5-9 [facility] Comment on above: Performed By: #### U MICRO, ERUR, PREGU ####[facility] [address] [place], [place] [address]Dr. Nita Iverson SPEC GRAVITY 1.020 Normal 1.005-<=1.025 [facility] Comment on above: Performed By: #### U MICRO, ERUR, PREGU ####[facility] [address] [place], [place] [address]Dr. Nita Iverson UA PROTEIN Negative Normal NEGATIVE/ TRACE [facility] Comment on above: Performed By: #### U MICRO, ERUR, PREGU ####[facility] [address] [place], [place] [address]Dr. Nita Iverson UR MICRO IND INDICATED Normal [facility] Comment on above: Performed By: #### U MICRO, ERUR, PREGU ####[facility] [address] [place], [place] [address]Dr. Nita Iverson Urobilinogen Qn (U) 1.0 {Senait'U}/dL Normal 0.2 - 1. 0 [facility] Comment on above: Performed By: #### U MICRO, ERUR, PREGU ####[facility] [address] [place], [place] [address]DrMaribel Iverson LIPASEon 09-21-2022 Lipase [Catalytic activity/Vol] 89.0 U/L Normal 73.0-393.0 [facility] Comment on above: Performed By: #### C MADM, LIPA, CMP ####[facility] [address] [place], [place] [address]LbDr. Nita Iverson URon 09-21-2022 , QUAL Negative Normal NEGATIVE [facility] Comment on above: Performed By: #### U MICRO, ERUR, PREGU ####[facility] [address] [place] [id number]. Nita Iverson PROF 14(COMP METB)on 023 Albumin [Mass/Vol] 3.5 g/dL Normal 3.4-5.0 [facility] Comment on above: Performed By: #### C MADM, LIPA, CMP #### [facility] [address] [address] [address] Nita Iverson Albumin/Globulin [Mass ratio] 1.0 {ratio} Normal [facility] Comment on above: Performed By: #### C MADM, LIPA, CMP #### [facility] [address] [address] [address] Nita Iverson ALP [Catalytic activity/Vol] 67 U/L Normal 46-116 [facility] Comment on above: Performed By: #### C MADM, LIPA, CMP #### [facility] [address] [address] [address] Nita Iverson ALT [Catalytic activity/Vol] 30 U/L Normal 14-59 [facility] Comment on above: Performed By: #### C MADM, LIPA, CMP #### [facility] [address] [address] [address] Nita Iverson Anion gap [Moles/Vol] 11.8 mmol/L Normal [facility] Comment on above: Performed By: #### C MADM, LIPA, CMP #### [facility] [address] [address] [address] Nita Iverson AST [Catalytic activity/Vol] 25 U/L Normal 15-37 [facility] Comment on above: Performed By: #### C JANETH DENSONA, CMP #### [facility] [address] [place] [address] Dr. Nita Iverson Bilirubin [Mass/Vol] 0.3 mg/dL Normal 0.2-1.0 [facility] Comment on above: Performed By: #### C JARETT LIPA, CMP #### [facility] [address] [place] [address] Dr. Nita Iverson Calcium [Mass/Vol] 9.2 mg/dL Normal 8.5-10.1 [facility] Comment on above: Performed By: #### C JANETH DENSONA, CMP #### [facility] [address] [place] [address] Dr. Nita Iverson Chloride [Moles/Vol] 106 mmol/L Normal 98-107 [facility] Comment on above: Performed By: #### C JARETT LIPA, CMP #### [facility] [address] [place] [address] Dr. Nita Iverson CO2 [Moles/Vol] 28.7 mmol/L Normal 21.0-32.0 [facility] Comment on above: Performed By: #### C JARETT LIPA, CMP #### [facility] [address] [place] [address] Dr. Nita Iverson Creatinine [Mass/Vol] 0.81 mg/dL Normal 0.55-1.02 [facility] Comment on above: Performed By: #### C JARETT LIPA, CMP #### [facility] [address] [place] [address] Dr. Nita Iverson EGFR-AF CYMRAES >60 Normal >=60 [facility] Comment on above: Performed By: #### C JARETT LIPA, CMP #### [facility] [address] [place] [address] Dr. Nita Iverson EGFR-NON AF CYMRAES >60 Normal >=60 [facility] Comment on above: Performed By: #### C JARETT LIPA, CMP #### [facility] [address] [address] [address] Nita Iverson Globulin (S) [Mass/Vol] 3.5 g/dL Normal [facility] Comment on above: Performed By: #### C MADM, LIPA, CMP #### [facility] [address] [address] [address] Nita Iverson Glucose [Mass/Vol] 106 mg/dL Normal 74-106 [facility] Comment on above: Performed By: #### C MADM, LIPA, CMP #### [facility] [address] [address] [address] Nita Iverson Potassium [Moles/Vol] 4.5 mmol/L Normal 3.5-5.1 [facility] Comment on above: Performed By: #### C MADM, LIPA, CMP #### [facility] [address] [address] [address] Nita Iverson Protein [Mass/Vol] 7.0 g/dL Normal 6.4-8.2 [facility] Comment on above: Performed By: #### C MADM, LIPA, CMP #### [facility] [address] [address] [address] Nita Iverson Sodium [Moles/Vol] 142 mmol/L Normal 136-145 [facility] Comment on above: Performed By: #### C MADM, LIPA, CMP #### [facility] [address] [address] [address] Nita Iverson Urea nitrogen [Mass/Vol] 12.0 mg/dL Normal 7.0-18.0 [facility] Comment on above: Performed By: #### C MADM, LIPA, CMP #### [facility] [address] [address] [address] Nita Iverson Urea nitrogen/Creatinine [Mass ratio] 14.8 mg/mg Normal [facility] Comment on above: Performed By: #### C MADM, LIPA, CMP #### [facility] [address] [address] [address] Nita Iverson URINE MICROSCOPIC ONLYon BACTERIA NONE SEEN Normal NONE SEEN [facility] Comment on above: Performed By: #### U MICRO, ERUR, PREGU ####[facility] [address] [address]Dr. Nita Iverson Bacteria identified Cx Nom (U) NOT INDICATED Normal [facility] Comment on above: Performed By: #### U MICRO, ERUR, PREGU ####[facility] [address] [address]Dr. Nita Iverson CAST NONE SEEN Normal NONE SEEN [facility] Comment on above: Performed By: #### U MICRO, ERUR, PREGU ####[facility] [address] [address]Dr. Nita Iverson Crystals LM Nom (Urine sed) NONE SEEN Normal NONE SEEN [facility] Comment on above: Performed By: #### U MICRO, ERUR, PREGU ####[facility] [address] [place] [address]Dr. Nita Iverson Epithelial cells LM Ql (Urine sed) RARE Normal NONE SEEN /RARE [facility] Comment on above: Performed By: #### U MICRO, ERUR, PREGU ####[facility] [address] [place] [address]Dr. Nita Iverson MUCOUS NONE SEEN Normal NONE SEEN [facility] Comment on above: Performed By: #### U MICRO, ERUR, PREGU ####[facility] [address] [place] [address]Dr. Nita Iverson RBC 20-50 Abnormal 0-2 [facility] Comment on above: Performed By: #### U MICRO, ERUR, PREGU ####[facility] [address] [place] [address]Dr. Nita Iverson WBC 2-5 Abnormal NONE SEEN [facility] Comment on above: Performed By: #### U MICRO, ERUR, PREGU ####[facility] [address] [place] [address]Dr. Nita Iverson US THYROIDon 09-06-2022 US THYROID [...] by: PREET RODRIGEZ Date: 2022-09-06 20:19 Normal [facility] MRI HIP RT WO CONon 08-19-19 23 MRI HIP RT WO CON EXAM: MRI HIP RT WO CON HISTORY: Right hip pain COMPARISON: X-rays 07/07/2022 TECHNIQUE: Axial and coronal large wenfx-rs-ybwk sequencing through the pelvis and both hips. Small siotn-nz-osmn coronal, sagittal and axial sequencing through the [...] at approximately the 11:00 position (coronal small ofmkr-pv-hcuu 14). The remainder of the labrum exhibits no gross irregularity. The left acetabulum is normal. The bilateral femoral head and acetabular cartilage exhibits no chondral or osteochondral irregularity. The pubic symphysis and sacroiliac joints are normal. Thickening and interstitial edema of the right gluteus medius tendon insertion to the greater trochanter (coronal small kmnye-oj-azck 13 and axial large gbypg-bn-djka 23). Mild amount of adjacent edema. No abnormal bursal fluid collection. Questionable mild thickening and interstitial edema of the left gluteus minimus tendon (coronal large adkhb-de-dzcs 17 and axial large ndyxa-if-vltl 23 and to a lesser degree the gluteus medius tendon (coronal large eoagp-yp-hxcf 21). No tendon tear, tendon tear or [...] by: PAULETTE PHIPPS Date: 2022-08-18 22:39 Normal [facility] PAP ACOG PANEL 2: 30 to 65on 08-11-2022 . . Normal [facility] Comment on above: Result Comment: Perf ormed at: WB Performed By: #### [id number] ####[facility] [address] [place] [id number] Iverson Age Gdln ACOG Testing 30-65 Normal [facility] Comment on above: Performed By: #### [id number] ####[facility] [address] [place], [place] [address]RcMaribel Iverson DIAGNOSIS: Comment Normal [facility] Comment on above: Result Comment: NEGA TIVE FOR INTRAEPITHELIAL LESION OR MALIGNANCY. Performed at: WB Performed By: #### 4 [id number] ####[facility] [address] [place], [place] [address]GeMaribel Iverson HPV Aptima Negative Normal Negative [facility] Comment on above: Result Comment: This nucleic acid amplification test detects fourteen high-risk HPV types (16,18,31,33,35,39,45,51,52,56,58,59,66,68) without differentiation. Performed at: =G Performed By: #### [id number] ####[facility] [address] [place] [address]DrMaribel Iverson HPV Genotype Reflex Comment Normal [facility] Comment on above: Result Comment: Crit eria not met, HPV Genotype not performed. Performed at: WB Performed By: #### 4 [id number] ####[facility] [address] [place] [id number]. Nita Iverson Methodology: Comment Normal [facility] Comment on above: Result Comment: This liquid based ThinPrep(R) pap test was screened with the use of an image guided system. Performed at: WB Performed By: #### [id number] ####[facility] [address] [place], [place] [address]DrMaribel Iverson Note: Comment Normal [facility] Comment on above: Result Comment: The Pap smear is a screening test designed to aid in the detection of premalignant and malignant conditions of the uterine cervix. It is not a diagnostic procedure and should not be used as the sole means of detecting cervical cancer. Both false-positive and false-negative reports do occur. . Performed at: WB Performed By: #### 4 [id number] ####[facility] [address] [place], [place] [address]DrMaribel Iverson Performed by: Comment Normal [facility] Comment on above: Result Comment: Jordana Pruett, Business Education Teacher (ASCP) Performed at: WB Performed By: #### 4 [id number] ####[facility] [address] [address]Dr. Nita Iverson Specimen adequacy: Comment Normal [facility] Comment on above: Result Comment: Sati sfactory for evaluation. No endocervical component is identified. Performed at: WB Performed By: #### 4 [id number] ####[facility] [address] [place] [address]DrMaribel Iverson US PELVIS AND TRANSVAGon US PELVIS [...] by: PAULETTE GALVAN Date: 2022-06-06 17:51 [address] [facility] CT ABD/PELV WO W CONon 04-25 CT [...] by: PREET RODRIGEZ Date: 2022-04-25 08:09 Normal [facility] NM RENAL W_WO PHARMon 2021 NM RENAL [...] by: PAULETTE GALVAN Date: 2022-03-22 17:23 Normal [facility] XR KUB 1 VIEWon 03-22-2022 XR KUB [...] by: PAULETTE GALVAN Date: 2022-03-22 17:57 Normal [facility] US THYROIDon 03-09-2022 US THYROID EXAMINATION: US [...] IMPRESSION: Multinodular goiter, grossly stable TI-RADS: The [employer] TI-RADS committee's white paper recommendations for thyroid lesions classified as TR4 (moderately suspicious) are listed below: > 1.0 cm. Follow-up ultrasound in 1, 2, 3, and 5 years. > 1.5 cm. FNA. J. Am Rosendo Radiol 2017;14:587-595. Electronically authenticated by: PAULETTE GALVAN Date: 2022-03-09 07:[address] [facility] [address] ABD/PELV WO W CONon 03-07 CT [...] by: PREET RODRIGEZ Date: 2022-03-07 16:45 Normal [facility] CNOVon 02-21-2022 [facility] Office Visit (SILVERIO) -------- SAHU,STACEY ([id number]) 1975 F Date Time Provider Department 02/21/22 1:00 PM SHIRAZ BO During your visit today, we recorded the following information about you: Pulse Blood pressure Weight 76/minute 138/85 88.8 kg Shiraz Bo DO 03/13/2022 1:15 PM Signed [facility] - Medical Spine Initial Exam [...] gel - no benefit Therapies PT at [facility] in [place] in June 2021 - 2 times per week for 1 month, exercises, TENS, ice - no relief Ice/heat Prior spine/MSK interventions: -12/31/21 Dr. Muñoz: R GTB CSI - minimal relief for 1 day. 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 Normal [facility] MG MAMM SCREEN 3D GRACIE CADon 02-09-2022 MG MAMM SCREEN 3D GRACIE CAD Patient: STACEY SAHU Exam Date: 02/09/2022 : 1975 Gender:F Ordering : NIURKA RYAN BRUSH HOLDER ASSEMBLER Admission #: [id number] Family : Order #: [id number] CLICK HERE TO VIEW EXAM RADIOLOGY REPORT PROCEDURE: MAMMOGRAM SCREENING 3D BILATERAL CAD COMPARISON: MG MAMM SCREEN 3D GARCIE CAD, 09/17/2020. MG MAMM SCREEN GRACIE W [...] colon cancer at age 56. LOCATION: [facility] BREAST COMPOSITION: Scattered areas fibroglandular density. [...] M.D. on 02/09/2022 at 14:53 Normal [facility] Covid-19 PCR (CVDTB)on SARS-CoV-2 (COVID-19) RNA IZAIAH+probe Ql (Unsp spec) Detected Critically abnormal NOT DETECTED [facility] Comment on above: Result Comment: This test is not yet approved or cleared by the [place] FDA. When there are no FDA-approved or cleared tests available, and other criteria are met, FDA can make tests available under an emergency access mechanism called an Emergency Use Authorization (EUA). The EUA for this test is supported by the [place] of Health and Human Service's declaration that [...] longer be used). Performed By: #### C VDTB #### [facility] [address] [place] [address] Dr. Nita Figueroa 01-17-2022 CNOV Office Visit (LOORRM) -------- STACEY SAHU ([id number]) 1975 F Date Time Provider Department 01/17/22 3:30 PM BREEZY MUÑOZ During your visit today, we recorded the following information about you: Breezy Muñoz DO 01/17/2022 3:48 PM Signed SERVICE DATE: January 17, 2022 PCP: Essie Ryan, BRUSH HOLDER ASSEMBLER, BRUSH HOLDER ASSEMBLER Patient was self-referred. Subjective Patient ID: Stacey [...] x 4 Crohn's disease without complication (HCC) [id number] Pulmonary Htn (Hcc) Obese Nirmala (Obstructive Sleep [...] TO S (more content not included)... Normal [facility] CNOVon 12-31-2021 CNOV Office Visit (LOORRM) -------- STACEY SAHU ([id number]) 1975 F Date Time Provider Department 12/31/21 1:00 PM BREEZY MUÑOZ During your visit today, we recorded the following information about you: Breezy Muñoz DO 12/31/2021 1:10 PM Signed SERVICE DATE: December 31, 2021 PCP: Essie Ryan, NIURKA, BRUSH HOLDER ASSEMBLER Patient was self-referred. Subjective Patient ID: Stacey [...] x 4 Crohn's disease without complication (HCC) [id number] Pulmonary Htn (Hcc) Obese Nirmala (Obstructive Sleep [...] Care Vi (more content not included)... Normal [facility] MR femur RT wo/w conon 12-04 MR femur RT wo/w con [facility] [place] [address] MRI Report Signed Patient: Stacey Sahu MR#: [id number] : 1975 Acct:[id number] Age/Sex: 46 / F ADM Date: 12/03/21 Loc: MR Room: Type: [facility] Attending Dr: Alexis Saenz II, MD [...] Stock Jr., M.D.12/04/2021 3:45 PM Dictation Location: [place] [address] Transcribed By: [facility] 12/04/21 1545 Dictated By: Breezy Stock Jr, MD 12/04/21 1519 Signed By: 12/04/21 1545 Normal [facility] XR femur RT 2V*on 11-17-2021 XR femur RT 2V* [facility] [place] [address] XRay Report Signed Patient: Stacey Sahu MR#: [id number] : 1975 Acct:[id number] Age/Sex: 46 / F ADM Date: 11/17/21 Loc: [facility] Room: Type: [facility] Attending Dr: Alexis Saenz II, MD Ordering Provider: Alexis Saenz MD Date of Service: 11/17/21 XR/XR hip RT min 2V(w/wo pelvis)*: Right hip pain ([id number]) XR/XR femur RT 2V*: Right hip pain Copies to: Alexis Saenz MD 2 views RIGHT hip single view pelvisplain film COMPARISON:01/14/2 2 HISTORY:RIGHT hip pain for months. Worsening. [...] Vipin Iniguez M.D.11/17/2021 3:56 PM Dictation Location: [place] [address] Transcribed By: [facility] 11/17/21 1556 Dictated By: Vipin Iniguez DO 11/17/21 1553 Signed By: 11/17/21 1556 [facility] Large Joint Arthro/Inj: R gr eater trochanteric bursa [facility] Vital Signs Date Time Vital Sign Value Performing Clinician Facility 09-12-2023 07:42-0400 Diastolic blood pressure 103 mm[Hg] Imani Chan APRN-BRUSH HOLDER ASSEMBLER Work Phone: [facility] 09-12-2023 07:42-0400 Heart rate 95 /min Imani Chan APRN-BRUSH HOLDER ASSEMBLER Work Phone: [facility] 09-12-2023 07:42-0400 Respiratory rate 18 /min Imani Chan APRN-BRUSH HOLDER ASSEMBLER Work Phone: [facility] 09-12-2023 07:42-0400 SaO2% (BldA) [Mass fraction] 99 % Imani Chan CHECK CLERK-BRUSH HOLDER ASSEMBLER Work Phone: [facility] 09-12-2023 07:42-0400 Systolic blood pressure 136 mm[Hg] Imani Chan CHECK CLERK-BRUSH HOLDER ASSEMBLER Work Phone: [facility] 06-28-2023 10:34-0500 Body height 149.9 cm Evans Anderson PA-C Work Phone: [facility] 06-28-2023 10:34-0500 Body mass index (BMI) [Ratio] 38.78 kg/m2 Evans Verhoff PA-C Work Phone: [facility] 06-28-2023 10:34-0500 Body weight 87.09 kg Evans Verhoff PA-C Work Phone: [facility] 06-28-2023 10:34-0500 Diastolic blood pressure 107 mm[Hg] Evans Verhoff PA-C Work Phone: [facility] 06-28-2023 10:34-0500 Heart rate 93 /min Evans Verhoff PA-C Work Phone: [facility] 06-28-2023 10:34-0500 SaO2% (BldA) [Mass fraction] 97 % Evans Verhoff PA-C Work Phone: [facility] 06-28-2023 10:34-0500 Systolic blood pressure 139 mm[Hg] Evans Verhoff PA-C Work Phone: [facility] 05-29-2023 14:39-0500 Blood Pressure Location Josechamp GARCIA [facility] 05-29-2023 14:39-0500 Diastolic blood pressure 83 mm[Hg] Jose GARCIA [facility] 05-29-2023 14:39-0500 Heart rate 88 /min Jose GARCIA [facility] 05-29-2023 14:39-0500 Respiratory rate 16 /min Jose GARCIA [facility] 05-29-2023 14:39-0500 Systolic blood pressure 131 mm[Hg] Jose GARCIA [facility] 11-24-2022 13:48-0400 Diastolic blood pressure 106 mm[Hg] Beth SALAM [facility] 11-24-2022 13:48-0400 Mean blood pressure 121 mm[Hg] Beth SALAM [facility] 11-24-2022 13:48-0400 Systolic blood pressure 152 mm[Hg] Beth SALAM [facility] 11-24-2022 13:46-0400 Blood Pressure Location Beth SALAM [facility] 11-24-2022 13:46-0400 Diastolic blood pressure 118 mm[Hg] Beth SALAM [facility] 11-24-2022 13:46-0400 Heart rate 80 /min Beth SALAM [facility] 11-24-2022 13:46-0400 Respiratory rate 16 /min Beth SALAM [facility] 11-24-2022 13:46-0400 Systolic blood pressure 161 mm[Hg] Beth SALAM [facility] 04-26-2022 12:03-0400 Blood Pressure Location Jose GARCIA [facility] 04-26-2022 12:03-0400 Diastolic blood pressure 95 mm[Hg] Jose GARCIA [facility] 04-26-2022 12:03-0400 Heart rate 102 /min Jose GARCIA [facility] 04-26-2022 12:03-0400 Systolic blood pressure 141 mm[Hg] Jose GARCIA [facility] 02-21-2022 12:39-0400 Body weight 88.81 kg Shiraz Bo DO Work Phone: [facility] 02-21-2022 12:39-0400 Diastolic blood pressure 85 mm[Hg] Shiraz Bo DO Work Phone: [facility] 02-21-2022 12:39-0400 Heart rate 76 /min Shiraz Bo DO Work Phone: [facility] 02-21-2022 12:39-0400 Systolic blood pressure 138 mm[Hg] Shiraz Bo DO Work Phone: [facility] 12-09-2021 09:00-0400 Body height 160.02 cm Alexis Hays II Other [facility] Other 12-09-2021 09:00-0400 Body mass index (BMI) [Ratio] 34.47 kg/m2 Alexis Dany II Other [facility] Other 12-09-2021 09:00-0400 Body weight 88.27 kg Alexis Dany II Other [facility] Other 11-17-2021 15:30-0400 Body height 160.02 cm Alexis Hays II Other [facility] Other 11-17-2021 15:30-0400 Body mass index (BMI) [Ratio] 32.41 kg/m2 Alexis Hays II Other [facility] Other 11-17-2021 15:30-0400 Body weight 83.01 kg Alexis Hays II Other [facility] Other Encounters Encounter Date Encounter Type Care Provider Facility Start: 11-28-2023 ambulatory LESLIE Singleton ty:FLORENTIN Tobias Start: 10-25-2023 End: 10-25-2023 ambulatory SHAIKH MARIJA Not Available Start: 09-28-2023 End: 09-28-2023 ambulatory ESSIE AICHHOLZ Not Available Start: 09-20-2023 Telephone encounter Nora FROST [facility] Start: 09-12-2023 End: 09-12-2023 ambulatory [facility] Start: 09-12-2023 End: 09-12-2023 Office outpatient visit 15 minutes [facility] CHECK CLERK-BRUSH HOLDER ASSEMBLER Work Phone: [facility] Comment on above: Chronic right hip pa in (Primary Dx) Start: 09-06-2023 End: 09-06-2023 ambulatory NEDA CACERES Not Available Start: 09-01-2023 End: 09-02-2023 ambulatory PJ Medina GANNON [facility] Start: 08-26-2023 End: 08-26-2023 ambulatory MARY DANIELS Not Available Start: 08-21-2023 End: 08-21-2023 ambulatory [facility] Start: 07-13-2023 End: 07-14-2023 ambulatory ESSIE AICHHOLZ Not Available Start: 07-11-2023 End: 07-11-2023 ambulatory Juliana Block Other [facility] Other Start: 07-11-2023 Office outpatient vi sit 25 minutes Juliana Block [facility] Start: 07-04-2023 End: 07-04-2023 ambulatory ESSIE AICHHOLZ Not Available Start: 06-28-2023 End: 06-28-2023 ambulatory EVANS ANDERSON [facility] Start: 06-28-2023 End: 06-28-2023 Office outpatient visit 15 minutes Evans Anderson PA-C Work Phone: [facility] Comment on above: Lumbar radiculopathy (Primary Dx) Start: 05-29-2023 End: 05-30-2023 ambulatory Jose Javy JOSE Facility:[facility] Start: 05-29-2023 End: 05-29-2023 Patient encounter procedure Jose Palaofx JOSE [facility] Start: 05-10-2023 End: 05-10-2023 ambulatory NEDA CACERES Not Available Start: 02-02-2023 End: 02-03-2023 ambulatory Beth SALAM Facility:[facility] Start: 02-02-2023 End: 02-03-2023 ambulatory Beth SALAM Facility:[facility] Start: 02-02-2023 End: 02-02-2023 Lab Drop off Beth SALAM [facility] Start: 02-01-2023 End: 02-02-2023 ambulatory Beth SALAM Facility:[facility] Start: 02-01-2023 End: 02-01-2023 Patient encounter procedure Beth SALAM [facility] Start: 01-05-2023 End: 01-06-2023 ambulatory Beth SALAM Facility:[facility] Start: 01-03-2023 End: 01-04-2023 ambulatory Beth SALAM Facility:CD:[id number] Start: 12-06-2022 End: 12-07-2022 ambulatory Beth SALAM Facility:[facility] Start: 12-06-2022 End: 12-06-2022 Patient encounter procedure Beth SALAM [facility] Start: 11-24-2022 End: 11-25-2022 ambulatory SHAIKH MARIJA Facility:[facility] Start: 11-24-2022 End: 11-24-2022 Patient encounter procedure Beth SALAM [facility] Start: 11-22-2022 End: 11-23-2022 ambulatory CAN HACKER Facility:[facility] Start: 11-08-2022 End: 11-08-2022 ambulatory CAN [facility] Start: 11-08-2022 End: 11-08-2022 Encounter for preprocedural cardiovascular examination [facility] Start: 11-08-2022 End: 11-09-2022 ambulatory BYRON BENITEZEPIMIPATHY . Facility:[facility] Start: 10-26-2022 End: 10-27-2022 ambulatory NIURKA RYAN Facility:[facility] Start: 10-18-2022 End: 10-18-[address] NEDA CACERES Facility:[facility] Start: 10-04-2022 End: 10-05-[address] NEDA CACERES Facility:[facility] Start: 09-28-2022 ambulatory Ignacia KHAN [facility] Start: 09-21-2022 End: 09-22-2022 ambulatory EDNA [...] encounter procedure Jose GARCIA [facility] Start: 04-22-2022 End: 04-23-2022 ambulatory NIURKA ESSIE RYAN Facility:[facility] Start: 03-29-2022 End: 03-30-[address] MARKO MORALES . Facility:[facility] Start: 03-22-2022 End: 03-23-2022 ambulatory NIURKA ALANIZSAEKamila Facility:[facility] Start: 03-22-2022 End: 03-23-[address] MARKO MORALES . Facility:[facility] Start: 03-08-2022 End: 03-09-[address] NEDA CACERES Facility:[facility] Start: 03-08-2022 End: 03-08-2022 Patient encounter procedure Jose GARCIA [facility] Start: 03-07-2022 End: 03-08-2022 ambulatory NIURKA RYAN Facility:[facility] Start: 02-21-2022 End: 02-21-2022 ambulatory ESSIE RYAN Facility:[facility] Start: 02-21-2022 End: 02-21-2022 Patient encounter procedure Shiraz Bo DO Work Phone: Spine Medicine Comment on above: Tendinopathy of righ t gluteal region (Primary Dx); Trochanteric bursitis of right hip; Chronic bilateral low back pain without sciatica; Lumbar spondylosis Start: 02-09-2022 End: 02-10-2022 ambulatory NIURKA RYAN Facility:[facility] Start: 01-24-2022 End: 01-24-2022 ambulatory NIURAK RYAN Facility:[facility] Start: 01-17-2022 End: 01-17-2022 ambulatory ESSIE RYAN Facility:[facility] Start: 01-17-2022 End: 01-17-2022 Patient encounter procedure Breezy Muñoz DO Work Phone: Orthopaedics Comment on above: Trochanteric bursiti s of right hip (Primary Dx); Lumbago-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 Start: 01-05-2022 End: 01-05-2022 ambulatory Alexis Hays II Other [facility] Other Start: 01-05-2022 Telephone encounter Alexis Dany II [facility] Start: 12-31-2021 End: 12-31-2021 ambulatory BREEZY MUÑOZ Facility:[facility] Start: 12-31-2021 End: 12-31-2021 Patient encounter procedure Breezy Muñoz DO Work Phone: Orthopaedics Comment on above: Trochanteric bursiti s of right hip (Primary Dx) Start: 12-09-2021 End: 12-09-2021 ambulatory Alexis Hays II Other [facility] Other Start: 12-09-2021 Office outpatient vi sit 25 minutes Alexis Hays II [facility] Start: 11-17-2021 End: 11-17-2021 ambulatory Alexis Dany II Other [employer] Other Start: 11-17-2021 Office outpatient ne w 45 minutes Alexis Dany II [facility] Start: 06-02-2017 End: 06-03-2017 Ambulatory DEFAULT PHYSICIAN Facility:[facility] Start: 05-15-2017 End: 05-16-2017 Ambulatory DEFAULT PHYSICIAN Facility:[facility] Start: 05-01-2017 End: 05-02-2017 Ambulatory DEFAULT PHYSICIAN Facility:[facility] Procedures Date Procedure Procedure Detail Performing Clinician Start: 12-24-2022 Lobectomy of thyroid gland Jose GARCIA Start: 02-14-2022 Adult depression scr eening assessment Shiraz Mendsheree DO Work Phone: Start: 12-31-2021 Arthrocentesis aspir &/inj major jt/bursa w/o us Breezy Muñoz DO Work Phone: Start: 12-15-2020 Colonoscopy Breezy sotelo DO Work Phone: Hysterectomy Jose GARCIA Laparoscopy Jose GARCIA Other bilateral liga tion and division of fallopian tubes Jose GARCIA partial colectomy Jose LAUREN LAYNERivera Tonsillectomy Jose GARCIA Plan of Treatment Date Care Activity Detail Author Start: 2036 HEPATITIS B (1 of 3 - Risk 3-dose series) HEPATITIS B (1 of 3 - Risk 3-dose series) [facility] Start: 09-11-2024 Tobacco Screening Tobacco Screening [facility] Start: 08-21-2024 Adult BMI Screening Adult BMI Screening [facility] Start: 06-28-2024 Adult BMI Screening Adult BMI Screening [facility] Start: 06-28-2024 Tobacco Screening Tobacco Screening [facility] Start: 12-15-2023 DIABETES SCREEN DIABETES SCREEN [facility] Start: 08-30-2023 End: 08-30-2023 Patient encounter procedure 08/30/2023 8:15 AM EST Office Visit [facility] [address] [place] [id number] Evans Anderson PAAllan [address] [facility], [address] [place] [address] [facility] Start: 02-24-2023 Influenza vaccination Influenza Vaccine [facility] Start: 02-14-2023 Adult depression screening assessment DEPRESSION SCREENING [facility] Start: 02-24-2022 Influenza vaccination INFLUENZA (#1) [facility] Start: 12-15-2021 Colonoscopy COLONOSCOPY [facility] Start: 12-15-2021 COLORECTAL CANCER SCREENING COLORECTAL CANCER SCREENING [facility] Start: 2021 COLOGUARD (FIT-DNA) COLOGUARD (FIT-DNA) [facility] Start: [address] COLONOGRAPHY [facility] Start: 2021 FECAL OCCULT BLOOD FECAL OCCULT BLOOD [facility] Start: 2021 LIPID SCREEN LIPID SCREEN [facility] Start: 2021 SIGMOIDOSCOPY SIGMOIDOSCOPY [facility] Start: 2016 Mammography MAMMOGRAM [facility] Start: 2006 HPV TESTING HPV TESTING [facility] Start: 1997 PAP TESTING PAP TESTING [facility] Start: 1995 DTaP,Tdap and Td Vaccines (1 - Tdap) DTaP,Tdap and Td Vaccines (1 - Tdap) [facility] Start: 1995 HEPATITIS B (1 of 3 - Risk 3-dose series) HEPATITIS B (1 of 3 - Risk 3-dose series) [facility] Start: 1995 Urine microalbumin profile DTAP,TDAP,TD (1 - Tdap) [facility] Start: 1994 Adult BMI Follow Up Plan Adult BMI Follow Up Plan [facility] Start: 1994 HIV SCREENING HIV SCREENING [facility] Start: 1994 MMR (1 of 2 - Risk 2-dose series) MMR (1 of 2 - Risk 2-dose series) [facility] Start: 1988 Adult depression screening assessment DEPRESSION SCREENING [facility] Start: 1986 MENINGOCOCCAL B: Consider based on risk (1 of 4 - Increased Risk Bexsero 2-dose series) MENINGOCOCCAL B: Consider based on risk (1 of 4 - Increased Risk Bexsero 2-dose series) [facility] Start: 1977 HEPATITIS A (1 of 2 - Risk 2-dose series) HEPATITIS A (1 of 2 - Risk 2-dose series) [facility] Start: 1976 COVID-19 VACCINE (#1) COVID-19 VACCINE (#1) [facility] Immunizations Immunization Date Immunization Notes Care Provider Kati swift 05-03-2012 influenza, whole Jose WOOTEN [facility] 05-03-2012 influenza virus vaccine, unspecified formulation Evans Anderson PA-C Work Phone: [facility] Payers Date Payer Category Payer Private Health Insurance [facility] [id number] 2022-Present [phone] [address] [place] [address] [id number] 2020 Medicaid [facility] [id number] 2020-Present [phone] [address] [place] [address] Medicaid [id number] 2020 Medicaid [facility]ICA[facility] [id number] 2020-Present [phone] [address] [place] [address] Medicaid [id number] 1976 Unknown [id number] 2.16.840.1.208419.3.579. 2.593 1976 Unknown [id number] 2.16.840.1.215116.3.579. 2.593 1976 Unknown [id number] 2.16.840.1.306893.3.579. 2.593 1976 Unknown [id number] 2.16.840.1.041270.3.579. 2.593 1976 Unknown [id number] 2.16.840.1.904786.3.579. 2.593 1976 Unknown [id number] 2.16.840.1.368278.3.579. 2.593 1976 Unknown [id number] 2.16.840.1.326466.3.579. 2.593 1976 Unknown [id number] 2.16.840.1.003278.3.579. 2.593 1976 Unknown [id number] 2.16.840.1.023592.3.579. 2.593 1976 Unknown [id number] 2.16.840.1.928740.3.579. 2.593 1976 Unknown [id number] 2.16.840.1.029762.3.579. 2.593 1976 Unknown [id number] 2.16.840.1.926788.3.579. 2.593 1976 Unknown [id number] 2.16.840.1.787621.3.579. 2.593 1976 Unknown [id number] 2.16.840.1.414268.3.579. 2.593 1976 Unknown [id number] 2.16.840.1.657294.3.579. 2.593 1976 Unknown [id number] 2.16.840.1.822346.3.579. 2.593 1976 Unknown [id number] 2.16.840.1.373501.3.579. 2.593 1976 Unknown [id number] 2.16.840.1.044629.3.579. 2.593 1976 Unknown [id number] 2.16.840.1.938222.3.579. 2.593 1976 Unknown [id number] 2.16.840.1.303542.3.579. 2.593 1976 Unknown [id number] 2.16.840.1.609245.3.579. 2.593 1976 Unknown [id number] 2.16.840.1.818569.3.579. 2.593 1976 Unknown [id number] 2.16.840.1.980845.3.579. 2.593 1976 Unknown [id number] 2.16.840.1.981375.3.579. 2.727 1976 Unknown [id number] 2.16.840.1.690852.3.579. 2.727 1976 Unknown [id number] 2.16.840.1.960189.3.579. 2.727 1976 Unknown [id number] 2.16.840.1.600562.3.579. 2.727 1976 Unknown [id number] 2.16.840.1.818548.3.579. 2.727 1976 Unknown [id number] 2.16.840.1.549615.3.579. 2.727 1976 Unknown [id number] 2.16.840.1.724934.3.579. 2.727 1976 Unknown [id number] 2.16.840.1.069088.3.579. 2.727 1976 Unknown [id number] 2.16.840.1.672691.3.579. 2.727 1976 Unknown [id number] 2.16.840.1.331066.3.579. 2.727 1976 Unknown [id number] 2.16.840.1.478565.3.579. 2.1286 1976 Unknown [id number] 2.16.840.1.217140.3.579. 2.1286 1976 Unknown [id number] 2.16.840.1.070294.3.579. 2.1286 1976 Unknown [id number] 2.16.840.1.099399.3.579. 2.1286 1976 Unknown [id number] 2.16.840.1.446697.3.579. 2.1286 1976 Unknown [id number] 2.16.840.1.630746.3.579. 2.1259 1976 Unknown [id number] 2.16.840.1.264206.3.579. 2.1259 1976 Unknown [id number] 2.16.840.1.102426.3.579. 2.1259 1976 Unknown [id number] 2.16.840.1.254487.3.579. 2.1259 1976 Unknown [id number] 2.16.840.1.270696.3.579. 2.1259 1976 Unknown [id number] 2.16.840.1.126375.3.579. 2.1259 1976 Unknown [id number] 2.16.840.1.779471.3.579. 2.1259 1959 Unknown [id number] 2.16.840.1.254919.19 1959 Unknown [id number] Unknown Social History Date Type Detail Facility Start: 08-06-2020 End: 06-28-2023 Sex Assigned At [facility] [employer] Other Start: 07-27-2016 End: 04-12-2023 Tobacco smoking status NMIS Never smoked tobacco [facility] Start: 07-27-2016 End: 04-12-2023 Tobacco use and exposure Smokeless tobacco non-user [facility] Start: 12-15-2020 End: 09-12-2023 Alcohol intake Current non-drinker of alcohol (finding) [facility] Start: 1975 Sex Assigned At Not on file C [facility] Start: 01-07-2022 End: 02-21-2022 Exposure to SARS-CoV-2 (event) Not sure [facility] Tobacco Past [facility] Comment on above: stopped 12 years ago stopped 12 years ago Tobacco smoking status No Smoking Status Entered [facility] Tobacco smoking status Never [facility] Start: 08-06-2020 End: 06-28-2023 History of Social function [facility] Functional Status Date Assessment Result Facility 05-29-2023 Functional Status N/A [facility] 11-24-2022 Functional Status N/A [facility] 04-26-2022 Functional Status N/A [facility] Clinical Notes 12-14-2020 to 09-20-2023 Telephone Encounter - Nora Garza CNA - 09/20/2023 2:53 PM EDTTelephone Encounter - Nora Garza CNA - 09/20/2023 2:53 PM EDTSADELA Patton - 09/12/2023 7:45 AM EDT Note Date & Type Note Facility 09-20-2023 Miscellaneous Notes [facility] called to say that they are out of network for Stacey's insurance. A referral form will be sent once she selects an orthopedic in-network documented in this encounter [facility] 09-20-2023 Telephone encounter Note [facility] called to say that they are out of network for Stacey's insurance. A referral form will be sent once she selects an orthopedic in-network [facility] 09-12-2023 History of Presen t illness Narrative [facility] [address] [place] [address] Patient: Stacey Sahu Sex: female : 1975 Age: 48 y.o. PCP: ADELA SMITH 09/12/2023 Stacey Sahu is here for a(n) post procedure follow up 09/01/2023 Right hip injection with 10% relief x 2 hours. Pre-proc pain 5/10 today her pain is 3/10 with activity and 10/10 with rest. Date of onset of pain: 2022 , pain has lasted greater than 3 months. Pain scale before treatment: 4/10 Pre-op pain score: 5/10 Post-op pain score: 6/10 2 hour post-op pain score: 4/10 4 hour post-op pain score: 4/10 Percentage of relief after and duration: 10% x 2 hours Pain scale after treatment: 4/10 Chief Complaint Patient presents with Hip Pain HPI: Physical Therapy/HEP 03/2022 right hip with some relief 05/26/23 Rt L 5,1 Nroot Inj w/50% relief continued 09/01/2023 Right hip injection with 10% relief x 2 hours. Pre procedure pain 5/10. Post procedure pain 4/10. Hip Pain Incident onset: hip pain started in Apr 2021. There was no injury mechanism. The pain is present in the right hip (radiating into upper right lateral thigh). The quality of the pain is described as aching, shooting and stabbing. The pain is at a severity of 4/10 (4/10 current; increases to 10/10 by every evening). The pain is moderate. The pain has been Fluctuating since onset. Associated symptoms include muscle weakness (RLE). Pertinent negatives include no inability to bear weight, loss of motion, numbness or tingling. She reports no foreign bodies present. The symptoms are aggravated by movement and weight bearing (standing, stairs, sitting). She has tried ice, rest, acetaminophen, heat and NSAIDs (no relief: tylenol, Voltaren gel, Icy hot, Lido patches min: NSAIDS, ice/heat, accupuncture, inj at [facility] Mod relief: Narcotics Sign: Steroid inj by Ortho) for the symptoms. The treatment provided moderate relief. The effect of pain on patient's ADLS: Moderate Impairment. Past Medical History: Diagnosis Date Arthritis Bipolar disorder ([facility]) Chronic pain disorder Crohn's colitis ([facility]) Depression GERD (gastroesophageal reflux disease) H/O methicillin resistant Staphylococcus aureus infection Hyperlipidemia Joint pain Pleurisy Pulmonary hypertension ([facility]) Pulmonary hypertension ([facility]) Sleep apnea cpap Past Surgical History: Procedure Laterality Date COLON SURGERY part of bowel removed d/t crohns dx HYSTERECTOMY 2017 INJECTION BURSA LARGE JOINT Right Hip Right 09/01/2023 Performed by Pj Gannon MD at [facility] SPINE TRANSFORAMINAL Right L 5,1 Nroot Right 05/26/2023 Performed by Pj Gannon MD at [facility] RELEASE DEQUERVAINS CONTRACTURE Right 10/17/2018 Performed by Dereck Bagley DO at [facility] THYROIDECTOMY, PARTIAL Allergies Allergen Reactions Penicillins [...] on file Food Insecurity: No Food Insecurity (09/12/2023) Hunger Screening Food Insecurity - Worry: Never True Food Insecurity - Inability: Never True Transportation Needs: Not on file Physical Activity: Not on file Stress: Not on file Social Connections: Not on file Interpersonal Safety: Not on file Housing Instability: Not on file Review of Systems Constitutional: Negative for chills and fever. HENT: Negative. Eyes: Negative. Respiratory: Negative. Cardiovascular: Negative. Gastrointestinal: Negative. Genitourinary: Negative. Skin: Negative. Neurological: Negative for tingling and numbness. Vital Signs: BP (!) 136/103 (BP Site: Right Arm, BP Postition: Sitting) Pulse 95 Resp 18 SpO2 99% Physical Exam: GENERAL - Healthy patient that [...] during discussion, demonstrated appropriate cognitive reasoning and understanding of the medical condition by asking appropriate questions regarding the diagnosis and risks/benefits/alternatives of treatment modalities. No obvious deficits in memory, reasoning, or intellect. Lumbar: SKIN - No rashes or bruising in the area of the patient s pain. LYMPH NODES - demonstrate no obvious enlargement. EXTREMITIES - Lower extremities are warm, with minimal edema and palpable pulses. No significant tenderness to palpation noted in the lumbar spine and paraspinal musculature. Mild pain is elicited with flexion, extension, and lateral rotation of the lumbar spine. Range of motion is not diminished with these motions. Facet palpation is negative for significant pain and facet loading maneuvers elicit only mild pain that is not concordant with the patient s normal pain complaints. STRENGTH - noted to be 5 out [...] distributions. Straight Leg Raise is negative bilaterally. Tenderness to palpation noted over the Right Hip Joint. Pain is elicited with internal and external rotation of the hip and hip provocative maneuvers are positive and consistent with some of the patient s normal pain. No obvious ligamental laxity is noted. Tenderness to palpation noted over the Right Greater Trochanteric Bursa which is consistent with some of the patient s normal pain. Gait is antalgic. Assessment/Treatment Plan: Stacey was seen today for hip pain. Diagnoses and all orders for this visit: Chronic right hip pain - Ambulatory referral to Orthopedic Surgery; Future - meloxicam (MOBIC) 15 mg tablet; Take 1 tablet (15 mg total) by mouth in the morning. MOBIC 15 MG daily With Regard to medication management, it is felt that the patient would benefit from the changes mentioned above. This should provide symptomatic pain relief as part of the comprehensive pain management strategy outlined. Risks, Benefits, Side effects, and possible interactions of these medications were reviewed and the medication agreement has been discussed, agreed upon, and signed. The patient understands compliance concerns and the requirement of pill counts and drug screens while taking medications prescribed by this clinic. [facility] Orthopedic Referral - Right Hip pain It is felt that due to the severity of the patient s symptoms and lack of response to conservative treatment, surgical options need to be reviewed at this time. Hopefully this will provide more definitive treatment strategies for these symptoms. Follow up after consult The medications I have prescribed have been reviewed for medication interactions/contraindications [...] monitoring for toxicity We do not currently prescribe any controlled substance from this practice. Treatment plans discussed but not opted for at this time: In office Trochanteric bursa injections and/or SI joint injections. Patient would like to proceed with the current outlined treatment plan before moving forward with any other options. The spine model was demonstrated and Xray and MRI was reviewed and used to explain the condition. Chronic conditions not treated during this visit that affected my overall medical decision making: Obesity, Sleep apnea, Depression OARRS: Reviewed. Scribe Statement: Scribed for and in the presence of ADELA METZ by Essie Dutton CNA. Provider Statement: I, ADELA METZ, personally performed the services described in the documentation, as scribed by Essie Dutton CNA in my presence, and it is both accurate and complete. Essie Dutton CNA 09/12/23 0828 ADELA Metz 09/12/23 1317 documented in this encounter [facility] 07-11-2023 Evaluation note Encounter Date Diagnosis Assessment [...] treatment plan. Patient left in stable condition [facility] Other 01-03-2024 History of Present illness Narrative* Evans Anderson PA-C - 06/28/2023 10:45 AM EST [facility] [address] [place] [address] Patient: Stacey Sahu Sex: female : 1975 [...] min: NSAIDS, ice /heat, accupuncture, inj at [facility] Mod relief: Narcotics Sign: Steroid inj by Ortho) for the symptoms. The treatment provided moderate relief. The effect of pain on patient's ADLS: Minimal Impairment. Past Medical History: Diagnosis Date Arthritis Bipolar disorder ([facility]) Chronic pain disorder Crohn's colitis ([facility]) Depression GERD (gastroesophageal reflux disease) H/O methicillin resistant Staphylococcus aureus infection Hyperlipidemia Joint pain Pleurisy Pulmonary hypertension ([facility]) Pulmonary hypertension ([facility]) Sleep apnea cpap Past Surgical History: Procedure Laterality Date COLON SURGERY part of bowel removed d/t crohns dx HYSTERECTOMY 2017 INJECTION SPINE TRANSFORAMINAL Right L 5,1 Nroot Right 05/26/2023 Performed by jP Gannon MD at [facility] RELEASE DEQUERVAINS CONTRACTURE Right 10/17/2018 Performed by Dereck Bagley DO at [facility] THYROIDECT[facility], PARTIAL Allergies Allergen Reactions Penicillins [...] PA-C by Essie Dutton CNA. Provider Statement: IEVANS PA-C, personally performed the services described in the documentation, as scribed by Essie Dutton CNA in my presence, and it is both accurate and complete. Essie Dutton CNA 06/28/23 1208 Evans Anderson PA-C 06/28/23 1229 [facility] Discharge instructions Patient Education 05/29/2023 15:17:27 Kidney Stones, [id number]-Rrkb Kidney Stones Kidney stones are rock-like masses [...] Follow these instructions at home: Medicines Take mcau-paf-isxbyci and prescription medicines only as told by [...] provider. Document Revised: 02/14/2022 Document Reviewed: 02/14/2022 [employer] Patient Education 2022 [employer]. Follow Up Care 11/08/2022 13:29:10 With:JOSE FELIX, Jose Palafox, URL Address: [facility] [address] , [place] [phone] [phone] When: Unknown Comments:4 mos w/ metabolic w/u [facility] 05-16-2023 NoteNew patient here to re-establish care. Needs cleared for thyroid surgery with Dr. Caceres. Was last seen by Dr. Blackwood in 2018 for pulmonary hypertension. Denies chest pain and SOB. Does feel palpitations 3-4 times a day. Review of Systems Cardiovascular: Positive for palpitations. All other systems reviewed and are negative.[facility] 11-08-2022 NoteCardiovascular Medicine [facility] SUBJECTIVE Chief Complaint Patient presents with [...] Final Atrial Rate 05/01/2017 90 BPM Final WI Interval 05/01/2017 122 ms Final QRS DURATION 05/01/2017 98 ms Final QT Interval 05/01/2017 374 ms Final QTC CALCULATION(BEZET) 05/01/2017 457 ms Final P Celina 05/01/2017 46 degrees Final R-Celina 05/01/2017 60 degrees Final T Wave Celina 05/01/2017 37 degrees Final Diagnosis 05/01/2017 Final [...] ventricular systolic function (more content not included)... [facility]02-09-2023 NoteCONSULTATION CONSULTATION DATE: 08/04/2022 HISTORY OF [...] medications in three months, unless otherwise indicated.[id number] NotePROCEDURE: XR HIP RT 2 3V WO [...] authenticated by: PREET RODRIGEZ Date: 2022-07-07 15:33[facility] [id number] NoteCONSULTATION CONSULTATION DATE: 07/07/2022 HISTORY OF PRESENT [...] procedure, and she agrees to move forward.[facility] [id number] NoteCONSULTATION CONSULTATION DATE: 06/09/2022 HISTORY OF PRESENT [...] will re-evaluate with application of the diclofenac.[facility] 04-26-2022 Hospital Discharge instructions Patient Education [...] 06/12/2006 Document Revised: 03/01/2019 Document Reviewed: 05/12/2017 [employer] Patient Education 2020 [employer] 04/26/2022 12:17:47 Hematuria, Adult Hematuria, Adult Hematuria [...] Follow these instructions at home: Medicines Take ksnb-whc-qkguwud and prescription medicines only as told by [...] or the blood stops without treatment. Take kxln-ner-pqalquz and prescription medicines only as told by your health care provider. Drink enough fluid to keep your urine clear or pale yellow. This information is not intended to replace advice given to you by your health care provider. Make sure you discuss any questions you have with your health care provider. Document Released: 06/12/2006 Document Revised: 11/06/2019 Document Reviewed: 07/15/2017 [employer] Patient Education 2020 [employer]. Follow Up Care 04/22/2022 08:39:58 With:JOSE FELIX, Jose Palafox, URL Address: [address] [place] [phone] When:Within 6 Month(s) Comments:6 mo fu with KUB [facility] 10-04-2022 NoteCONSULTATION PROCEDURE DATE: 03/29/2022 PREOPERATIVE [...] Will be followed up in the office.[id number] NoteCONSULTATION CONSULTATION DATE: 03/22/2022 CHIEF COMPLAINT: Right [...] up subsequent to that. CC: Essie Ryan [facility]09-13-2022 Hospital Discharge instructions Patient Education 03/08/2022 08:47:22 [...] Urology [address], [place] [address]- Business (1) When: Unknown Comments:Office will call to schedule follow up [facility]08-29-2022 NoteHNO ID: [id number] Author: Shiraz Bo, DO Service: ? Author Type: Physician Type: Progress Notes Filed: 03/13/2022 1:15 PM Note Text: [facility] - Medical Spine Initial [...] gel - no benefit Therapies PT at [facility] in [place] in June 2021 - 2 times per week for 1 month, exercises, TENS, ice - no relief Ice/heat Prior spine/MSK interventions: -12/31/21 Dr. Muñoz: R GTB CSI - minimal relief for 1 day. 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[place], [place] Litigation: No Workers' Compensation: No YELLOW [...] x 4 Crohn's disease without complication (HCC) [id number] Pulmonary Htn (Hcc) Obese Nirmala (Obstructive Sleep Apnea) Gerd (Gastroesophageal Reflux Disease) Crohn's Disease of Intestine (Hcc) Enterolith of Small Intestine (Hcc) Bipolar Disease, Chronic (Hcc) Other Hyperlipidemia PAST MEDICAL HISTORY Diagnosis Date Abnormal uterine bleeding s/p hysterectomy Bipolar disorder (HCC) Crohn's disease of intestine (HCC) s/p surgery GERD (gastroesophageal reflux disease) Obes (more content not included)...[facility]08-29-2022 History of Present illness Narrative* Shiraz Bo, - 02/21/2022 12:46 PM EDT Images from the original note were not included. [facility] [place] [facility] - Medical [...] gel - no benefit Therapies PT at [facility] in [place] in June 2021 - 2 times per week for 1 month, exercises, TENS, ice - no relief Ice/heat Prior spine/MSK interventions: -12/31/21 Dr. Muñoz: R GTB CSI - minimal relief for 1 day. 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 Author Type: Physician Type: Progress Notes Filed: 01/17/2022 3:48 PM Note Text: SERVICE DATE: January 17, 2022 PCP: Essie Ryan, NIURKA, BRUSH HOLDER ASSEMBLER Patient was self-referred. Subjective Patient ID: Stacey [...] x 4 Crohn's disease without complication (HCC) [id number] Pulmonary Htn (Hcc) Obese Nirmala (Obstructive Sleep [...] (primary encounter diagnosis) Plan: CONSULT TO [facility]INE [facility] (M51.27) Lumbago-sciatica due to displacement [...] Sahu DATE: January 17, 2022 TIME: 3:46 [facility]07-25-2022 History of Present illness Narrative* Breezy Muñoz DO - 01/17/2022 3:42 PM EDT SERVICE DATE: January 17, 2022 PCP: Essie Ryan CNP, NIURKA Patient was [...] x 4 Crohn's disease without complication (HCC) [id number] Pulmonary Htn (Hcc) Obese Nirmala (Obstructive Sleep [...] 2022 TIME: 3:46 PM documented in this encounterFostoria City Hospital07-08-2022 NoteHNO ID: [id number] Author: Breezy Muñoz DO Service: ? Author Type: Physician Type: Progress Notes Filed: 12/31/2021 1:10 PM Note Text: SERVICE DATE: December 31, 2021 PCP: Essie Ryan CNP, BRUSH HOLDER ASSEMBLER Patient was self-referred. Subjective Patient ID: Stacey [...] x 4 Crohn's disease without complication (HCC) [id number] Pulmonary Htn (Hcc) Obese Nirmala (Obstructive Sleep Apnea) Gerd (Gastroesophageal Reflux Disease) Crohn's Disease of Intestine (Hcc) Enterolith of Small Intestine (Hcc) Bipolar Disease, Chronic (Hcc) Other Hyperlipidemia PAST MEDICAL HISTORY Diagnosis Date - Abnormal uterine bleeding s/p hysterectomy - Bipolar disorder (HCC) - Crohn's disease of intestine (HCC) s/p surgery 1999's - GERD (gastroesophageal reflux disease) - Obese [...] trochanteric bursa Informed Consent Consent Obtained: Verbal [place] Protocol A moment to CARE was completed. (more content not included)...[facility]07-08-2022 History of Present illness Narrative* Breezy Muñoz, DO - 12/31/2021 12:54 PM EDT Associated Order(s): Large Joint Arthro/Inj: R greater trochanteric bursa Post-Procedure Diagnose(s): Trochanteric bursitis of right hip SERVICE DATE: December 31, 2021 PCP: Essie Ryan, NIURKA, NIURKA Patient was [...] x 4 Crohn's disease without complication (HCC) [id number] Pulmonary Htn (Hcc) Obese Nirmala (Obstructive Sleep [...] trochanteric bursa Informed Consent Consent Obtained: Verbal [place] Protocol A moment to CARE was completed. [...] 2021 TIME: 1:05 PM documented in this encounterFostoria City Hospital06-16-2022 Evaluation note* Encounter Date Diagnosis Assessment [...] refer her to Dr. Christian with [facility]. [facility] Other 05-25-2022 Evaluation note* Encounter Date Diagnosis [...] I will see her with those results. [facility] Other 06-21-2021 History of Past illness Narrative* Problem Noted Date Resolved Date Generalized abdominal pain 12/14/202012/16 documented as of this encounter (statuses as of 12/31/2021) [facility] History of Past illness Narrative* Problem Noted Date Resolved Date Generalized abdominal pain 12/14/202012/16 documented as of this encounter (statuses as of 01/17/2022) [facility] History of Past illness Narrative* Problem Noted Date Resolved Date Generalized abdominal pain 12/14/2020 06/23 /2021 documented as of this encounter (statuses as of 03/13/2022) [facility] No data available for this section [facility] Future Appointments Appointment Date:10/24/2022 11:30:00 AM Scheduled Provider:Jose GARCIA MD Location:[facility] Appointment Type:URO Office Visit [facility] Evaluation + Plan note Future Appointments Appointment Date:05/29/2023 02:30:00 PM Scheduled Provider:Jose GARCIA MD Location:[facility] Appointment Type:URO Office Visit Future Scheduled Tests Laboratory* Calprotectin, Fecal 11/24/22 * CBC w/ Auto Diff 11/24/22 * Comprehensive Metabolic Panel 11/24/22 * C-Reactive Protein 11/24/22 Radiology* CT Abdomen/Pelvis w/contrast (enterography) 11/24/22 [facility] Evaluation + Plan note Future Appointments Appointment Date:05/29/2023 02:30:00 PM Scheduled Provider:Jose GARCIA MD Location:[facility] Appointment Type:URO Office Visit Future Scheduled Tests Laboratory* Calprotectin, Fecal 11/24/22 * CBC w/ Auto Diff 11/24/22 * Comprehensive Metabolic Panel 11/24/22 * C-Reactive Protein 11/24/22 [facility] Future Appointments Appointment Date:02/02/2023 01:00:00 PM Scheduled Provider:Ignacia KHAN MD Location:[facility] Appointment Type:[facility] Follow Up Appointment Date:05/29/2023 02:30:00 PM Scheduled Provider:Jose GARCIA MD Location:[facility] Appointment Type:URO Office Visit Future Scheduled Tests Laboratory* Calprotectin, Fecal 11/24/22 [facility] Future Appointments Appointment Date:05/29/2023 02:30:00 PM Scheduled Provider:Jose GARCIA MD Location:[facility] Appointment Type:URO Office Visit Diagnostic Tests Pending * Calprotectin, Fecal 02/02/23 [facility] Future Appointments Appointment Date:10/02/2023 03:00:00 PM Scheduled Provider:Jose GARCIA MD Location:[facility] Appointment Type:URO Office Visit [facility] evaluation note* Diagnosis Trochanteric bursitis of right hip- Primary Enthesopathy of hip region documented in this encounter [facility] noteNo [facility]Jeff[facility] 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 documented in this encounter [facility] note* Diagnosis Tendinopathy of right gluteal region- Primary Trochanteric bursitis of right hip Enthesopathy of hip region Chronic bilateral low back pain without sciatica Lumbar spondylosis Lumbosacral spondylosis without myelopathy documented in this encounter [facility] note* Diagnosis Lumbar radiculopathy- Primary Thoracic or lumbosacral neuritis or radiculitis, unspecified [facility] Diagnosis Chronic right hip pain- Primary documented in this encounter [facility] Narrative - Reported* Type Description Date Medical History acid reflux Surgical History biopsy of intestines Surgical History hysterectomy [facility] Other Hospital Discharge instructions No data available for this section [facility] InstructionsNot on filedocumented in this encounter [facility] SystemInstructionsNot on filedocumented in this encounter [facility] SystemInstructionsNot on filedocumented in this encounter [facility] No data available for this section [facility]Reason for referral (narrative)* Consultation (Routine) - Pending Review Specialty Diagnoses / Procedures Referred By Wan gamboa Referred To Contact Orthopedic Surgery Diagnoses Chronic right hip pain Imani Chan, CHECK CLERK-BRUSH HOLDER ASSEMBLER [address] [place] [address] Bang Cuellar MD [address] [place] [address] Referral ID Status Reason Start Date Expiration Date Visits Requested Visits Authorized [id number] Pending Review Specialty Services Required 09/12/2023 09/11/2024 1 1 [facility] Summary Purpose Family History No Family History Records FoundNo Family History Records FoundNo Family History Records FoundNo Family History Records FoundNo Family History Records Found No data available for this section No Family History Records FoundNo Family History Records FoundNo Family History Records Found Advance Directives No Advanced Directives Records FoundDocuments on File Type Date Recorded 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 Advance Directive(s) 12/12/2020 8:14 PM Documents on File Type Date Recorded 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 Advance Directive(s) 12/12/2020 8:14 PM Reason for Referral Specialty Diagnoses / Procedures Referred By Contac t Referred To [facility] Diagnoses Trochanteric bursitis of right hip Tendinopathy of right gluteal region Chronic bilateral low back pain without sciatica Lumbar spondylosis Procedures CONSULT TO CHIROPRACTOR OFFICE/OUTPATIENT [facility] 60-74 MINUTES Shiraz Bo DO [address] [place] [address] Referral ID Status Reason Start Date Expiration Date Visits Requested Visits Authorized [id number] Pending Review PCP Requested Referral 02/21/2022 02/21/2023 1 1 Specialty Diagnoses / Procedures Referred By Contac t Referred To [facility] Sports Medicine Diagnoses Trochanteric bursitis of right hip Tendinopathy of right gluteal region Procedures CONSULT TO SPORTS MEDICINE OFFICE/OUTPATIENT [facility] 60-74 MINUTES Shiraz Bo DO [address] [place] [address] Referral ID Status Reason Start Date Expiration Date Visits Requested Visits Authorized [id number] Authorized PCP Requested Referral 02/21/2022 02/21/2023 1 1 Specialty Diagnoses / Procedures Referred By Contac t Referred To Contact [facility] [place] Diagnoses Trochanteric bursitis of right hip Lumbago-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 Procedures CONSULT TO [facility] OFFICE/OUTPATIENT [facility] 60-74 MINUTES Breezy Muñoz, [facility] [address] [place] [address] Referral ID Status Reason Start Date Expiration Date Visits Requested Visits Authorized [id number] Authorized PCP Requested Referral 01/17/2022 01/17/2023 1 1 Reason evaluate and treat. Gluteal tendon tear vs greater trochanteric bursitis Please refer to Bang Christian MD, Orthopaedic Surgery, [facility] Diagnosis 1 Trochanteric bursiti s, right hip (M70.61) Referral Organization [facility] Referring Provider First Name Alexis Referring Provider Last Name Dany ARDON Referring Provider Specialty Orthopedic Surgery Referred Organization [facility] Referred Address [address] [facility] [facility],[place], [place],[address] Referred Provider Specialty ORTHOPEDIC S URGEON Referral [...] section and content) DATE CREATED AUTHOR 12/19/2017 [facility] DATE CREATED AUTHOR AUTHOR'S ORGANIZ ATION 12/08/2021 [facility] DATE CREATED AUTHOR AUTHOR'S ORGANIZ ATION 03/26/2022 [facility] DATE CREATED AUTHOR AUTHOR'S ORGANIZ ATION 12/04/2022 [facility] DATE CREATED AUTHOR AUTHOR'S ORGANIZ ATION 12/04/2022 [facility] DATE CREATED AUTHOR AUTHOR'S ORGANIZ ATION 09/05/2023 [facility] DATE CREATED AUTHOR AUTHOR'S ORGANIZ ATION 09/12/2023 [facility] DATE CREATED AUTHOR AUTHOR'S ORGANIZ ATION 10/26/2023 [facility] dical Specialists EPIC REASON FOR VISIT (unrecogniz ed section and content) Reason Comments New Specialty Diagnoses / Procedures Referred By Contac t Referred To Contact Orthopedics / ORTHOPAEDIC SURGERY Diagnoses Greater Trochanteric Bursitis right hip vs Gluteal Tendon tear *OUTSIDE IMG PT TO BRING Procedures LANA NEW NO XRAY Alexis Saenz II, MD [address] [place] [address] Breezy Muñoz, [facility] [address] [place] [address] Referral ID Status Reason Start Date Expiration Date Visits Requested Visits Authorized [id number] Authorized Financial Clearance Not Required 12/24/2021 01/23/2022 99 99 Reason Comments Follow Up Reason Comments New Patient Evaluation Lower back pain/R ight side sciatica Specialty Diagnoses / Procedures Referred By Contac t Referred To Contact [facility] Diagnoses Trochanteric bursitis of right hip Lumbago-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 Procedures CONSULT TO [facility] OFFICE/OUTPATIENT [facility] 60-74 MINUTES Breezy Muñoz, [employer] [address] [place] [address] Referral ID Status Reason Start Date Expiration Date V isits Requested Visits Authorized [id number] Closed PCP Requested Referral 01/17/2022 01/17/2023 1 1 Reason Comments Hip Pain Reason Comments Hip Pain Source Comments (unrecognize d section and content) In the event this informatio n is protected by the Federal Confidentiality of Alcohol and Drug Abuse Patient Records regulations: The Federal rules restrict any use of the information to criminally investigate or prosecute any alcohol or drug abuse patient.[facility] Hospital[facility] the event this information is protected by the Federal Confidentiality of Alcohol and Drug Abuse Patient Records regulations: The Federal rules restrict any use of the information to criminally investigate or prosecute any alcohol or drug abuse patient.[facility] HospitalIn the event this information is protected by the Federal Confidentiality of Alcohol and Drug Abuse Patient Records regulations: The Federal rules restrict any use of the information to criminally investigate or prosecute any alcohol or drug abuse patient.[facility] Care Teams (unrecognized sec tion and content) Checker Stocker Relationship Specialty Start Date End Date Essie Ryan CNP PCP - General Family Practice 07/22/16 Adán Torres Obstetrics 07/22/16 Alexis Saenz II, MD [address] [place] [address] Referring Orthopedics 12/13/21 Checker Stocker Relationship Specialty Start Date End Date Essie Ryan CNP PCP - General Family Practice 07/22/16 Adán Torres DO Obstetrics 07/22/16 Alexis Saenz II, MD [address] [place] [address] Referring Orthopedics 12/13/21 Checker Stocker Relationship Specialty Start Date End Date Essie Ryan, [facility] PCP - General Family Practice 07/22/16 Adán Torres, DO Obstetrics 07/22/16 Alexis Saenz II, MD [address] [place] [address] Referring Orthopedics 12/13/21 Checker Stocker Relationship Specialty Start Date End Date Essie Ryan, CHECK CLERK-[facility] [address] [place] [phone] PCP - General Nurse Practitioner 10/03/18 Checker Stocker Relationship Specialty Start Date End Date Essie Ryan [facility] [address] [place] [phone] PCP - General Nurse Practitioner 10/03/18 Checker Stocker Relationship Specialty Start Date End Date Essie Ryan, CHECK CLERK-[facility] [address] [place] [phone] PCP - General Nurse Practitioner 10/03/18 FOR [...] BE BASED ON THE PRIMARY CLINICAL RECORDS. [facility] [facility]. provides no warranty or guarantee of the accuracy or completeness of information in this document.
== END 2023-11-04 21:01 | disposition home or self-care (01) ==
LOC: SLEEP 11-06 07:24
PROVIDERS: PCP Internal Medicine; Visit Provider Internal Medicine
DX: G47.33 Obstructive sleep apnea (adult) (pediatric) (principal)
CPT/HCPCS: 95811

== ENCOUNTER 2023-11-06 14:33 | Outpatient (OUT) | payer OTHER, SELFPAY ==
--- NOTE | 2023-11-06 | XR_ITS ---
The [address] [address] Patient Name: GAMAL FIGUEROA MRN: [facility]:[id number] date: 1975 Sex: F Assigned Patient Location: Current Patient Location: Accession/Order Number: [id number] Exam Date: 11/06/2023 14:35 Report Date: 11/07/2023 06:57 At the request of: ARSALAN PALMER Procedure: XR lumbar spine min 4V EXAMINATION: XR lumbar spine min 4V HISTORY: LUMBAR SPINE PAIN COMPARISON: XR abdomen 05/24/2023, CT abdomen pelvis 09/21/2022 FINDINGS: BONES: Minimal grade 1 retrolisthesis of L3 on 4; no significant change in alignment during flexion and extension. Mild degenerative facet arthropathy L3-4 through L5-S1. No fracture or bone lesion. DISC SPACES: Slight narrowing L3-4, L5-S1. PARASPINOUS: Negative. No paraspinous abnormality is seen. OTHER: 3 densely rim calcified 2.3 cm diameter structures projecting over right lower quadrant shown to be within the distal small bowel at the small bowel-colon anastomosis. XR/XR lumbar spine min 4V IMPRESSION: 1. Multilevel mild degenerative changes. 2. No appreciable acute abnormality. 3. Stable large right lower quadrant calcifications of uncertain etiology seen within distal small bowel on prior CT study. Electronically authenticated by: PREET RODRIGEZ Date: 11/07/2023 06:57
== END 2023-11-06 14:34 | disposition home or self-care (01) ==
LOC: EC 14:34
PROVIDERS: Visit Provider Student in an Organized Health Care Education/Training Program
DX: M54.16 Radiculopathy, lumbar region (principal); M51.36 Other intervertebral disc degeneration, lumbar region
CPT/HCPCS: 72110

== ENCOUNTER 2023-11-08 16:31 | Outpatient (OUT) | payer OTHER, SELFPAY ==
--- NOTE | 2023-11-08 | XR_ITS ---
The [address] [address] Patient Name: GAMAL FIGUEROA MRN: [id number] date: 1975 Sex: F Assigned Patient Location: [facility] Current Patient Location: Accession/Order Number: [id number] Exam Date: 11/08/2023 16:47 Report Date: 11/10/2023 06:11 At the request of: SHAIKH CHRISTOPHER Procedure: XR foot LT min 3V PROCEDURE: XR foot LT min 3V HISTORY: LEFT FOOT PAIN ; left heel pain COMPARISON: None. FINDINGS: BONES:Prominent calcaneal plantar spur. Mild joint space narrowing and periarticular osteophytes at the first metatarsophalangeal joint. SOFT TISSUES:Small calcification in or just deep to the skin surface lateral to the head of the 5th metatarsal. EFFUSION:None visible. OTHER: Negative. XR/XR foot LT min 3V IMPRESSION: 1. Prominent calcaneal plantar spur of uncertain clinical significance. 2. Mild degenerative joint disease of the first metatarsophalangeal joint. Electronically authenticated by: PREET RODRIGEZ Date: 11/10/2023 06:11
--- OUTSIDE RECORDS SUMMARY | 2023-11-08 16:55 | XMS_ITS | CCD ---
Author Organization [facility] Care Team Providers Care Canned Food Reconditioning Inspector Name Role Phone PHYSICIAN, DEFAULT Unavailable Unavailable PHYSICIAN, DEFAULT Unavailable Unavailable AICHHOLZ, ESSIE Unavailable Unavailable PHYSICIAN, DEFAULT Unavailable Unavailable PHYSICIAN, DEFAULT Unavailable Unavailable AICHHOLZ, ESSIE Unavailable Unavailable PHYSICIAN, DEFAULT Unavailable Unavailable PHYSICIAN, DEFAULT Unavailable Unavailable [place] ESSIE Unavailable Unavailable Alexis Saenz II Unavailable Essie Ryan CNP Primary Care Provider Adán Torres Unavailable Dany ARDON MD, Robert M Unavailable Adán Torres DO Unavailable [phone] ESSIE RYAN Primary Care Physician Aicandersonz Essie BAH Primary Care Provider Adán Torres DO Unavailable Dany ARDON MD, Robert M Unavailable ESSIE RYAN Primary Care Unavailable SHIRAZ BO Attending Unavailable BREEZY MUÑOZ Referring Unavailable ESSIE RYAN Primary Care Unavailable BREEZY MUÑOZ Attending Unavailable BREEZY MUÑOZ Attending Unavailable [place], ESSIE ANÍBAL Primary Care Unavailable CAN VALERA Attending Unavailable CAN VALERA Consulting Unavailable [place], NIURKA ESSIE Primary Care Unavailable CAN VALERA Admitting Unavailable DR MARKO PERRY Admitting Unavailable ANDREW ., DR MARKO Stafford Attending Unavailable AICHHOLKamila, BEAUTY SALES ADVISOR ESSIE Primary Care Unavailable ARTURO VANEGAS Consulting Unavailable MORALES ., DR MARKO Stafford Attending Unavailable MORALES ., DR MARKO Stafford Consulting Unavailable AICHHOLZ, BEAUTY SALES ADVISOR ESSIE Primary Care Unavailable MORALES ., DR MARKO Stafford Admitting Unavailable APLING, SHARONA B Attending Unavailable APLING, SHARONA B Consulting Unavailable APLING, SHARONA B Admitting Unavailable AICHHOLZ, BEAUTY SALES ADVISOR ESSIE Primary Care Unavailable PAULETTE PHIPPS Unavailable AICHHOLZ, BEAUTY SALES ADVISOR ESSIE Primary Care Unavailable GARCIA ., DR BAILEY Attending Unavailable GARCIA ., DR BAILEY Consulting Unavailable GARCIA ., DR BAILEY Admitting Unavailable WEST, DR PAULETTE León Consulting Unavailable MORALES ., DR MARKO Stafford Admitting Unavailable MORALES ., DR MARKO Stafford Attending Unavailable MORALES ., DR MARKO Stafford Consulting Unavailable AICHHOLZ, BEAUTY SALES ADVISOR ESSIE Primary Care Unavailable DELANEY ., ARTURO Consulting Unavailable MORALES ., DR MARKO Stafford Admitting Unavailable MORALES ., DR MARKO Stafford Attending Unavailable AICHHOLZ, BEAUTY SALES ADVISOR ESSIE Primary Care Unavailable YOBANY ., DR RASMUSSEN Attending Unavailable AICHHOLZ, BEAUTY SALES ADVISOR ESSIE Primary Care Unavailable YOBANY ., DR RASMUSSEN Admitting Unavailable WEST, DR PAULETTE León Consulting Unavailable YOBANY ., DR RASMUSSEN Consulting Unavailable AICHHOLZ, BEAUTY SALES ADVISOR ESSIE Primary Care Unavailable GARCIA ., DR BAILEY Admitting Unavailable GARCIA ., DR BAILEY Attending Unavailable GARCIA ., DR BAILEY Consulting Unavailable ZIEBER, DR PREET Palafox Consulting Unavailable TIMMIS, DR RED Attending Unavailable TIMMIS, DR RED Consulting Unavailable TIMMIS, DR RED Admitting Unavailable AICHHOLZ, BEAUTY SALES ADVISOR ESSIE Primary Care Unavailable ZIEBER, DR PREET Palafox Consulting Unavailable TIMMIS, DR RED Attending Unavailable TIMMIS, DR RED Consulting Unavailable TIMMIS, DR RED Admitting Unavailable AICHHOLZ, BEAUTY SALES ADVISOR ESSIE Primary Care Unavailable ZIEBER, DR PREET Palafox Consulting Unavailable TIMMIS, DR RED Attending Unavailable TIMMIS, DR RED Consulting Unavailable AICHHOLZ, BEAUTY SALES ADVISOR ESSIE Primary Care Unavailable TIMMIS, DR RED Admitting Unavailable WEST, DR PAULETTE León Consulting Unavailable AICHHOLZ, BEAUTY SALES ADVISOR ESSIE Primary Care Unavailable GARCIA ., DR BAILEY Attending Unavailable GARCIA ., DR BAILEY Consulting Unavailable GARCIA ., DR BAILEY Admitting Unavailable ZIEBER, DR PREET Palafox Consulting Unavailable LAKSHMIPATHY ., NARENDRANATH Attending Marleni vailable AICHHOLZ, BEAUTY SALES ADVISOR ESSIE Primary Care Unavailable LAKSHMIPATHY ., NARENDRANATH Admitting Marleni vailable MORALES ., DR MARKO Stafford Admitting Unavailable MORALES ., DR MARKO Stafford Attending Unavailable MORALES ., DR MARKO Stafford Consulting Unavailable AICHHOLZ, BEAUTY SALES ADVISOR ESSIE Primary Care Unavailable DELANEY ., ARTURO Consulting Unavailable AICHHOLZ, BEAUTY SALES ADVISOR ESSIE Primary Care Unavailable WEST, DR PAULETTE León Consulting Unavailable GARCIA ., DR BAILEY Attending Unavailable GARCIA ., DR BAILEY Admitting Unavailable AICHHOLZ, BEAUTY SALES ADVISOR ESSIE Consulting Unavailable YOBANY ., DR RASMUSSEN Attending Unavailable YOBANY ., DR RASMUSSEN Consulting Unavailable AICHHOLZ, BEAUTY SALES ADVISOR ESSIE Primary Care Unavailable YOBANY ., DR RASMUSSEN Admitting Unavailable AICHHOLZ, BEAUTY SALES ADVISOR ESSIE Primary Care Unavailable AICHHOLZ, BEAUTY SALES ADVISOR ESSIE Attending Unavailable AICHHOLZ, BEAUTY SALES ADVISOR ESSIE Consulting Unavailable AICHHOLZ, BEAUTY SALES ADVISOR ESSIE Admitting Unavailable DELANEY ., ARTURO Admitting Unavailable DELANEY ., ARUTRO Attending Unavailable AICHHOLZ, BEAUTY SALES ADVISOR ESSIE Primary Care Unavailable ZIEBER, DR PREET Palafox Consulting Unavailable DELANEY ., ARTURO Consulting Unavailable TIMMIS, DR RED Attending Unavailable TIMMIS, DR RED Consulting Unavailable TIMMIS, DR RED Admitting Unavailable AICHHOLZ, BEAUTY SALES ADVISOR ESSIE Primary Care Unavailable ZIEBER, DR PREET Palafox Consulting Unavailable DIAB ., EDNA Attending Unavailable DIAB ., EDNA Admitting Unavailable MARKER ., DR JIMÉNEZ Consulting Unavailable AICHHOLZ, BEAUTY SALES ADVISOR ESSIE Primary Care Unavailable DIAB ., EDNA Consulting Unavailable OWOYELE, MISTY Consulting Unavailable AICHHOLZ, BEAUTY SALES ADVISOR ESSIE Primary Care Unavailable AICHHOLZ, BEAUTY SALES ADVISOR ESSIE Attending Unavailable AICHHOLZ, BEAUTY SALES ADVISOR ESSIE Consulting Unavailable AICHHOLZ, BEAUTY SALES ADVISOR ESSIE Admitting Unavailable RAIN, DR PREET Palafox Consulting Unavailable MORALES ., DR MARKO Stafford Attending Unavailable MORALES ., DR MARKO Stafford Admitting Unavailable AICHHOLZ, BEAUTY SALES ADVISOR ESSIE Primary Care Unavailable MISC, DR MCCARTHY Referring Unavailable GARCIA ., DR BAILEY Consulting Unavailable MORALES ., DR MARKO Stafford Consulting Unavailable MORAIMACAN HERNANDEZ Attending Unavailable Aichholz DESK ASSISTANT-BEAUTY SALES ADVISOR, Essie Magdaleno Primary Care Provider Block, Juliana [...] allergy (disorder) 09-21-2011 AOF [facility] Repository (3 sources) Penicillin V Drug Allergy Fever [facility] Other (6 sources) Penicillins Drug Allergy 07-27-2016 Unknown [facility] (8 sources) History of - penicillin allergy (context-depende nt category); Translations: [H/O: penicillin allergy] Drug allergy [facility] (1 source) Penicillin Drug Allergy Fever [facility]asterStats Other Medications Current Medications Medication Drug Class(es) [...] by mouth once daily. polyethylene glycol 3350 804400 mg / potassium chloride 1480 mg / sodium bicarbonate 5720 mg / sodium chloride 31101 mg powder for oral solution (3 sources) Osmotic Laxative Start: 11-28-2022 NuLYTELY [place] oral powder for reconstitution See Instructions, 1 EA, Refill(s) 0, See physician instructions prior to procedure., [id number], 155, cm, 11/24/22 13:47:00 EDT, Height/Length Dosing, [...] # 2 tab(s), Refills(s) 0, Pharmacy: [id number], 155, cm, 03/03/22 15:04:00 EDT, Height/Length Dosing, [...] ity [facility] 08-01-2023 Lab Reports [id number]#1.00TIFF Normal [facility] Reportson 07-31-2023 Lab Reports [id number]#1.00TIFF Normal [facility] Report[facility] 07-28-2023 Lab Reports [id number]#1.00TIFF Normal [facility] Lab Reports [id number]#1.00TIFF Normal [facility] Report[facility] 07-26-2023 Lab Reports [id number]#1.00TIFF [facility] COVID/FLU/RSV RT-PCRon 07-11 SARS-CoV-2 (COVID-19) RNA IZAIAH+probe Ql (Unsp spec) Positive [facility]asterStats Other COVID/FLU/RSV RT-PCR Negative [facility] Other Ambulatory Visit Summaryon 1 07-30-2022 Ambulatory Visit Summary STACEY SAHU :1975 Visit Date:05/29/2023 Ambulatory Visit Instructions Your Diagnosis Kidney stones Gross hematuria Tests Performed Urnls Dip Stick Auto w/o Microscopy POC 90110 Your Care Team Attending Physician - JOSE [...] w/u Where: [facility] [address], [place] [address] [phone] Medications What How Much When Instructions Unchanged [...] Urnls Dip Stick Auto w/o Microscopy POC 61319 (05/29/2023) Bilirubin Urine Dipstick - Negative Blood Urine Dipstick - 3+ Large Glucose Urine Dipstick - Negative Ketones Urine Dipstick - Negative Leukocytes Urine Dipstick - Negative Nitrite Urine Dipstick - Negative Protein Urine Dipstick - Negative Specific [place] Urine Dipstick - >=1.030 Urine Appearance Urine [...] ? Santy (more content not included)... Normal [facility] Patient Educationon 05-29-20 Patient Education Urology [...] these instructions at home: Medicines ? Take umgx-ztt-htggmqa and prescription medicines only as told by [...] provider. Document Revised: 02/14/2022 Document Reviewed: 02/14/2022 [employer] Patient Education ? 2022 [employer]. [employer] [facility] Urology Office/Clinic Noteon 05-29-2023 Urology Office/Clinic [...] [facility] [address], [place] [phone] Additional Instructions: 4 mos w/ metabolic w/u Patient Education Kidney Stones, Uwei-nj-Rvww IImani, personally scribed for Dr. Garcia on [...] Dipstick: Negative (more content not included)... Normal [facility] Comment on above: Result Comment: Elec [...] with voice recognition artificial intelligence software, specifically [employer] and or Dr Lal [employer]. Substitutions may have occurred due to the inherent limitations of voice recognition and artificial intelligence software. ATTESTATION: Documentation services were performed after patient or guardian consented to allow [employer] to record this visit. DELVIN school library media specialist and provider reviewed before signing. DELVIN: [...] H/O: penic (more content not included)... Normal [facility] Comment on above: Result Comment: Elec tronically Signed By: Ana Rosa Iglesias\.br\Date and Time Signed: 02/02/23 15:48 EDT\.br\Electronically Co-Signed By: BILL FELIX, Ignacia\.br\Date and Time Co-Signed: 02/06/23 14:00 EDT Calprotectin, Fecalon 2022 Calprotectin (Stl) [Mass/Mass] 87 mcg/gm Invalid Interpretation Code 0-120 [facility] Comment on above: Result Comment: Conc entration Interpretation Follow-Up < 5 - 50 ug/g Normal None >50 -120 ug/g Borderline Re-evaluate in 4-6 weeks >120 ug/g Abnormal Repeat as clinically indicated Performed at: [facility] [id number] MD Kody Hayes Performed By: #### 1 [id number] ####[facility] [address] [place] [address] Ambulatory Visit Summaryon 0 02-02-2023 Ambulatory Visit [...] FELIX, Jose Palafox Where: [facility] Jatinder Normal [facility] Auto Diffon 02-01-2023 Basophils/100 WBC (Bld) 2.7 % High 0.0-2.0 [facility] Comment on above: Order Comment: Order Added by Discern Expert. Performed By: #### 2 950447, 6350331, 8082739, 63243585, 2125286 ####[address] [place] [address] Basophils/Leukocyte s Auto (Bld) [Pure # fraction] 0.2 E9/L Normal 0.0-0.2 [facility] Comment on above: Order Comment: Order Added by Discern Expert. Performed By: #### 2 959004, 5200561, 8615160, 61095682, 5332417 ####[address] [place] [address] Eosinophils/100 WBC (Bld) 8.5 % High 0.0-8.0 [facility] Comment on above: Order Comment: Order Added by Discern Expert. Performed By: #### 2 588448, 9879467, 1427494, 51470352, 9232879 ####[address] [place] [address] Eosinophils/Leukocy karina Auto (Bld) [Pure # fraction] 0.7 E9/L High 0.0-0.5 [facility] Comment on above: Order Comment: Order Added by Discern Expert. Performed By: #### 2 169795, 2578794, 8884706, 29951631, 6689963 ####[address] [place] [address] Lymphocytes/100 WBC (Bld) 34.8 % Normal 14.0-50.0 [facility] Comment on above: Order Comment: Order Added by Discern Expert. Performed By: #### 2 286179, 4677045, 8261503, 68389907, 0496876 ####[address] [place] [address] Lymphocytes/Leukocy karina Auto (Bld) [Pure # fraction] 2.8 E9/L Normal 1.0-4.0 [facility] Comment on above: Order Comment: Order Added by Discern Expert. Performed By: #### 2 697939, 6349399, 2056920, 13731648, 8392748 ####[facility] [address] [place] [address] Monocytes/100 WBC (Bld) 9.4 % Normal 4.0-14.0 [facility] Comment on above: Order Comment: Order Added by Discern Expert. Performed By: #### 2 375233, 0442779, 2303666, 98994669, 8665913 ####[address] [place] [address] Monocytes/Leukocyte s Auto (Bld) [Pure # fraction] 0.8 E9/L Normal 0.2-1.0 [facility] Comment on above: Order Comment: Order Added by Discern Expert. Performed By: #### 2 419837, 8560412, 3881951, 43171258, 3258081 ####[address] [address] Neutrophils/100 WBC (Bld) 44.6 % Normal 36.0-75.0 [facility] Comment on above: Order Comment: Order Added by Discern Expert. Performed By: #### 2 530963, 9872803, 8405285, 79235894, 7405083 ####[address] [place] [address] Neutrophils/Leukocy karina Auto (Bld) [Pure # fraction] 3.5 E9/L Normal 2.0-7.5 [facility] Comment on above: Order Comment: Order Added by Discern Expert. Performed By: #### 2 656582, 3518739, 0420128, 17204018, 7639954 ####[address] [place] [address] CBC w/ Auto Diffon 3 Erythrocyte distribution width (RBC) [Ratio] 13.6 % Normal 10.9-14.2 [facility] Comment on above: Performed By: #### 2 653916, 4256331, 0150874, 84858738, 6488551 ####[facility] [address] [place] [address] Hematocrit (Bld) [Volume fraction] 39.5 % Normal 34.0-46.0 [facility] Comment on above: Performed By: #### 2 210726, 9237685, 2315573, 11111376, 3446937 ####[address] [address] Hemoglobin (Bld) [Mass/Vol] 13.3 g/dL Normal 12.0-16.0 [facility] Comment on above: Performed By: #### 2 477173, 2415514, 0544520, 92508374, 0393261 ####[address] [address] MCH (RBC) [Entitic mass] 29.1 pg Normal 27.0-34.0 [facility] Comment on above: Performed By: #### 2 581734, 9422189, 3322713, 68036066, 0876247 ####[address] [address] MCHC (RBC) [Mass/Vol] 33.7 g/dL Normal 31.4-36.0 [facility] Comment on above: Performed By: #### 2 823303, 9762316, 6805201, 73604359, 4339878 ####[address] [place] [address] MCV (RBC) [Entitic vol] 86.4 fL Normal 80.0-100.0 [facility] Comment on above: Performed By: #### 2 059485, 9906660, 4993090, 61478486, 5837562 ####[address] [place] [address] Platelet mean volume (Bld) [Entitic vol] 8.9 fL Normal 6.4-10.8 [facility] Comment on above: Performed By: #### 2 392227, 4060917, 7695635, 74822360, 4988175 ####[facility] [address] [place] [address] Platelets (Bld) [#/Vol] 274.0 E9/L Normal 150.0-500.0 [facility] Comment on above: Performed By: #### 2 783481, 2623573, 2640261, 70243045, 7463013 ####[facility] [address] [place] [address] RBC (Bld) [#/Vol] 4.6 E12/L Normal 4.3-5.9 [facility] Comment on above: Performed By: #### 2 183644, 2730032, 3578749, 30372478, 1153914 ####[facility] [address] [place] [address] WBC corrected for nucl RBC Auto (Bld) [#/Vol] 8.0 E9/L Normal 4.0-11.0 [facility] Comment on above: Performed By: #### 2 096974, 7542619, 0675783, 21318783, 6198011 ####[facility] [address] [place] [address] CHEMISTRYOrdered By: SYSTEM SYSTEM on 02-01-2023 Albumin [Mass/Vol] 4.0 g/dL Normal 3.3 - 5.0 gm/dL F [facility] Remisol Albumin/Globulin [Mass ratio] 1.2 {ratio} Normal [...] rate/Area] 80 mL/min/1.73 m2 Normal >=59mL/min/1.73 m2 [facility] Chem S Globulin (S) [Mass/Vol] 3.2 g/dL Normal 1.4 - 4.0 gm/dL FT [facility] Glucose [Mass/Vol] 99 mg/dL Normal 55 - 199 mg/dL [facility] Potassium [Moles/Vol] 3.9 mmol/L Normal 3.5 - 5.3 mmol/L [facility] Protein [Mass/Vol] 7.2 g/dL Normal 6.0 - 7.8 gm/dL F [facility] Remisol Sodium [Moles/Vol] 139 mmol/L Normal 135 - 145 mmol/L [facility] Urea nitrogen [Mass/Vol] 15 mg/dL Normal 5 - 21 mg/dL [facility] Urea nitrogen/Creatinine [Mass ratio] 17 mg/mg Normal 10 - 20 [facility] CMPon 02-01-2023 Albumin [Mass/Vol] 4.0 g/dL Normal 3.3-5.0 [facility] Comment on above: Performed By: #### 2 958340, 9108789, 8459872, 67010455, 3767046 ####[facility] [address] [place] [address] Albumin/Globulin (S) [Mass conc ratio] 1.2 Normal 1.1-2.2 [facility] Comment on above: Performed By: #### 2 780594, 3159691, 5684578, 28311780, 5115979 ####[facility] [address] [place] [address] ALP [Catalytic activity/Vol] 53 Int._Unit/L Normal 21-98 [facility] Comment on above: Performed By: #### 2 678816, 7638678, 5680887, 63735914, 5938807 ####[facility] [address] [place] [address] ALT No additional P-5'-P [Catalytic activity/Vol] 18 Int._Unit/L Normal 6-46 [facility] Comment on above: Performed By: #### 2 768028, 4925776, 2810925, 10873035, 8403472 ####[facility] [address] [place] [address] Anion gap [Moles/Vol] 13 mmol/L Normal 6-16 [facility] Comment on above: Performed By: #### 2 714211, 9838883, 0540222, 37132879, 9550259 ####[address] [place] [address] AST [Catalytic activity/Vol] 18 Int._Unit/L Normal 5-43 [facility] Comment on above: Performed By: #### 2 982807, 7712735, 0411554, 32158477, 2771296 ####[facility] [address] [place] [address] Bilirubin [Mass/Vol] 0.4 mg/dL Normal 0.0-1.1 [facility] Comment on above: Performed By: #### 2 353450, 7730237, 9831992, 49916091, 4427435 ####[facility] [address] [place] [address] Calcium [Mass/Vol] 9.1 mg/dL Normal 8.9-11.1 [facility] Comment on above: Performed By: #### 2 870942, 0348104, 1080469, 60785997, 3989762 ####[facility] [address] [place] [address] Chloride [Moles/Vol] 106 mmol/L Normal 101-111 [facility] Comment on above: Performed By: #### 2 020278, 1185162, 6984370, 23272406, 1518299 ####[facility] [address] [place] [address] CO2 [Moles/Vol] 24 mmol/L Normal 21-31 [facility] Comment on above: Performed By: #### 2 879326, 7766230, 3336041, 52770878, 5745753 ####[facility] [address] [place] [address] Creatinine [Mass/Vol] 0.9 mg/dL Normal 0.5-1.3 [facility] Comment on above: Performed By: #### 2 439184, 5694243, 1713152, 91977720, 6855732 ####[facility] [address] [place] [address] Globulin (S) [Mass/Vol] 3.2 g/dL Normal 1.4-4.0 [facility] Comment on above: Performed By: #### 2 661618, 8518461, 3848963, 30740373, 0618752 ####[facility] [address] [place] [address] Glucose [Mass/Vol] 99 mg/dL Normal 55-199 [facility] Comment on above: Result Comment: If t his glucose result represents a fasting glucose, interpretation should refer to the following reference range: 55-99 mg/dL Performed By: #### 2 669155, 3331125, 0084072, 68323526, 1840784 ####[facility] [address] [place] [address] Potassium [Moles/Vol] 3.9 mmol/L Normal 3.5-5.3 [facility] Comment on above: Performed By: #### 2 583783, 5857473, 2392601, 88639961, 3780673 ####[facility] [address] [place] [address] Protein [Mass/Vol] 7.2 g/dL Normal 6.0-7.8 [facility] Comment on above: Performed By: #### 2 232714, 6674290, 7590579, 51677518, 5220946 ####[facility] [address] [place] [address] Sodium [Moles/Vol] 139 mmol/L Normal 135-145 [facility] Comment on above: Performed By: #### 2 440320, 1731722, 8715198, 06711996, 8181553 ####[facility] [address] [place] [address] Urea nitrogen [Mass/Vol] 15 mg/dL Normal 5-21 [facility] Comment on above: Performed By: #### 2 309487, 4738761, 2677310, 63368272, 0911120 ####[facility] [address] [place] [address] Urea nitrogen/Creatinine [Mass ratio] 17 No Units Normal 10-20 [facility] Comment on above: Performed By: #### 2 900454, 8225652, 2177735, 06231050, 2278456 ####[facility] [address] [place] [address] CRPon 02-01-2023 CRP [Mass/Vol] 0.7 mg/dL Normal <=1.9 [facility] Comment on above: Performed By: #### 2 501142, 0585048, 3601828, 87294172, 2936824 ####[facility] [address] [place] [address] Consent for Treatmenton Consent for Treatment [id number]#[id number]:127 Normal [facility] HEMATOLOGYOrdered By: SYSTEM SYSTEM on 02-01-2023 [...] 8.9 fL Normal 6.4 - 10.8 fL [facility] HemeAutoSS Platelets (Bld) [#/Vol] 274.0 E9/L Normal 150.0 - 500.0 E9/L [facility] HemeAutoSS RBC (Bld) [#/Vol] 4.6 E12/L Normal 4.3 - 5.9 E12/L [facility] HemeAutoSS WBC corrected for nucl RBC Auto (Bld) [#/Vol] 8.0 E9/L Normal 4.0 - 11.0 E9/L [facility] HemeAutoSS eGFRon 02-01-2023 GFR/1.73 sq M.predicted among non-blacks MDRD (S/P/Bld) [Vol rate/Area] 80 mL/min/1.73 m2 Normal >=59 [facility] Comment on above: Order Comment: Order added by Discern Expert. Result Comment: Hotel Clerk gail kidney disease could be indicated at eGFR's of less than 60 mL/min/1.73m2. Kidney failure is indicated at less than 15 mL/min/1.73m2. Performed By: #### 2 270767, 7845080, 4410531, 59165952, 3593085 ####[facility] [address] [place] [address] XR Abdomen 1 Viewon 01-07-20 23 XR [...] mGy = na DAP = na Normal [facility] Consent for Treatmenton 12-24 Consent for Treatment [id number]#1.00CD:127 Normal [facility] Outside Colonoscopyon 2022 Outside Colonoscopy [id number]#2.00CD:127 Normal [facility] CT Abdomen/Pelvis w/contrast (enterography)on 12-09-2022 CT [...] Oral contrast amount in ml's: 1450 Normal [facility] Consent for Treatmenton 11-24 Consent for Treatment [id number]#1.00CD:127 Normal [facility] Gastroenterology Office/Clin ic Noteon 11-29-2022 Gastroenterology [...] Olga Holt to record this visit. DELVIN school library media specialist and provider reviewed before signing. DELVIN: [...] - Demetri (more content not included)... Normal [facility] Comment on above: Result Comment: Elec tronically Signed By: Jesse Bray\.br\Date and Time Signed: 11/24/22 16:24 EDT\.br\Electronically Co-Signed By: Ignacia KHAN MD\.br\Date and Time Co-Signed: 11/29/22 21:07 EDT Consent for Procedure/Surger yon 11-28-2022 Consent for Procedure/Surgery [id number]#1.00CD:127 [facility] Pre-Certification Formon Pre-Certification Form [id number]#1.00CD:127 [facility] Ambulatory Visit Summaryon 0 11-24-2022 Ambulatory [...] FELIX, Jose Palafox [facility] Invalid Interpretation Code Abdominal pain, Print Label By Order Location\.br\ CBC w/ Auto Diff, Blood, Routine collect, 11/24/22, Order for future visit, Lab Collect, Crohn's disease, small intestine [facility] 36on 11-23-2022 36 Please let her know her ECHO was normal. I updated my note with clearance for her upcoming surgery. Please send to surgeons office. She should follow-up with an attending in 3 months or sooner if needed. Thanks Normal [facility] Telephoneon 11-23-2022 Telephone [id number] Stacey Sahu Lisa 1975 F Date Provider Department [facility] Family History Problem Relation Age of Onset Coronary artery disease Father Family Status - Relation Status Age at Father Normal [facility] ECHOCARDIO M/2D COMPLETEon 0 11-22-2022 ECHOCARDIO M/2D COMPLETE Patient: STACEY SAHU. Exam Date: 11/22/2022 : 1975 Gender:F Ordering : CAN VALERA [facility] Admission #: [id number] Family : Order #: [id number] CLICK HERE TO VIEW EXAM ECHOCARDIOGRAM REPORT [...] Moran M.D. on 11/22/2022 at 17:44 Normal [facility] Ambulatory Visit Summaryon 0 11-08-2022 Ambulatory Visit Summary STACEY SAHU :1975 Visit Date:11/08/2022 Ambulatory Visit Instructions Your Diagnosis Gross hematuria Kidney stones Nocturia Tests Performed Urnls Dip Stick Auto w/o Microscopy POC 82688 XR Abdomen 1 View -- Results Pending [...] PM EDT With: Ignacia KHAN MD Where: [facility] Normal [address] [place] [address]- \.br\ You Need to Schedule the Following Appointments\.br\ Follow Up with LESLIE JUNG PA-C, URL When: In 6 months 05/11/2023 EST\.br\ Comments:\.br\ KUB\.br\ Where:\.br\ [address]\.br\ [place] [address]\.br\ [phone]\.br\ Medications\.br\ What How Much When Instructions\.br\ Unchanged naproxen (Aleve) Every 12 hours Contact prescribing physician if questions or concerns \.br\ Unchanged omeprazole (Prilosec) Every day Contact prescribing physician if questions or concerns \.br\ Test Results\.br\ Urnls Dip Stick Auto w/o Microscopy POC 79373 (11/08/2022)\.br\ Bilirubin Urine Dipstick - Negative\.br\ Blood Urine Dipstick - 3+ Large\.br\ Glucose Urine Dipstick - Negative\.br\ Ketones Urine Dipstick - Negative\.br\ Leukocytes Urine Dipstick - Negative\.br\ Nitrite Urine Dipstick - Negative\.br\ Protein Urine Dipstick - Negative\.br\ Specific [place] Urine Dipstick - 1.020\.br\ Urine Appearance Urine [...] instructions at home:\.br\ Medicines\.br\ ? \.br\ Take kkal-oqi-zynxrha and prescription medicines only as told by [...] blood stops without treatment.\.br\ ? \.br\ Take subd-jnl-vcnebfw and prescription medicines only as told by your health care provider.\.br\ ? \.br\ Drink enough fluid to keep your urine pale yellow.\.br\ This information is not intended to replace advice given to you by your health care provider. Make sure you discuss any questions you have with your health care provider.\.br\ Document Revised: 02/10/2021 Document Reviewed: 02/10/2021 [employer] Patient Education ? 2022 [employer].\.br\ \.br\ [facility] Office Visiton 11-08-2022 Follow-up visit [id number] Stacey Sahu 1975 F Date Provider Department Center 11/08/2022 [facility] Family History Problem Relation Age of Onset Coronary artery disease Father Family Status - Relation Status Age at Father Level of Service:56887 SD OFFICE/OUTPATIENT NEW MODERATE MDM 45-59 MINUTES Reason for Visit and Comments: Re-establish care [Other] Pulmonary Hypertension [818] Normal [facility] Patient Educationon 11-09-19 23 Patient [...] these instructions at home: Medicines ? Take fapw-xvi-pwmfebf and prescription medicines only as told by [...] the blood stops without treatment. ? Take xnav-wfw-aqzokpx and prescription medicines only as told by your health care provider. ? Drink enough fluid to keep your urine pale yellow. This information is not intended to replace advice given to you by your health care provider. Make sure you discuss any questions you have with your health care provider. Document Revised: 02/10/2021 Document Reviewed: 02/10/2021 [employer] Patient Education ? 2022 [employer]. Normal [facility] Urology Office/Clinic Noteon 11-08-2022 Urology Office/Clinic [...] 05/11/2023 EST [address] [place] [place] [address] [phone] Additional Instructions: KUB Patient Education Hematuria, Adult [...] Protein Urine Dipstick: Negative (11/08/22 13:00:00) Specific [place] Urine Dipstick: 1.020 (11/08/22 13:00:00) Urine Appearance Urine Dipstick: Clear (11/08/22 13:00:00) Urine Color Urine Dipstick: Yellow (11/08/22 13:00:00) Urobilinogen Urine Dipstick: Normal 0.2-1 EU/dl (11/08/22 13:00:00) pH Urine Dipstick: 6 (11/08/22 13:00:00) Diagnostic Results Tests Reviewed: Reviewed UA, KUB [facility] Comment on above: Result Comment: Elec tronically Signed By: LESLIE JUNG PA-C\.br\Date and Time Signed: 11/08/22 13:46 EDT\.br\Electronically Co-Signed By: Moni Gonzáles MA\.br\Date and Time Co-Signed: 11/08/22 13:26 EDT RAD - MISCon 10-28-2022 RAD - MISC [id number]#1.00CD:127 [facility] US THYROID FN ASP BXon 10-28 US THYROID FN ASP BX Begin Addendum #1 COLLECTED DATE/TIME: 10/18/2022 13:19 EDT Final Diagnosis Report for [facility] [place], [place] (A/B) SOFT TISSUE MASS CEPHALAD TO THYROID; FINE NEEDLE ASPIRATION: -ATYPIA OF UNDETERMINED SIGNIFICANCE. -CYST CONTENT. NOTE: Sparsely cellular aspirate compromised of follicular cells with architectural atypia. Molecular testing or a repeat aspirate may be helpful if clinically indicated. The final diagnosis is based on a microscopic exam of customer contact representative sections. 10/25/[address] Caceres. [...] 2. Pathology results are pending. Normal [facility] XR KUB 1 VIEWon 10-27-2022 XR [...] PAULETTE GALVAN Date: 2022-10-27 07:19 Normal [facility] Provider Letteron 10-06-2022 Provider Letter October 06, 2022 STACEY [address]HU [address] [place] [address] STACEY SAHU 1975 Dear Stacey , We [...] [facility] [address], [place] [address] Normal [facility] CT NEC[address] W CONon 3 [...] by: PREET RODRIGEZ Date: 2022-10-05 08:22 Normal [facility] Physician Referralon 023 Physician Referral [id number]#1.00CD:127 Normal [facility] CARDIAC DENZEL ADMITon 023 CK [Catalytic activity/Vol] 149 U/L Normal 26-192 [facility] Comment on above: Performed By: #### C MADMJANETHA, CMP ####[facility] [address] [address]Dr. Nita Iverson CK.MB [Mass/Vol] 1.51 ng/mL Normal <=3.60 [facility] Comment on above: Performed By: #### C MADM LIPA, CMP ####[facility] [address] [address]Dr. Nita Iverson HSTROP 4.1 pg/mL Normal 4.0-51.3 [facility] Comment on above: Result Comment: CUT- OFF POINTS HAVE BEEN ESTABLISHED BASED ON THE FOURTH UNIVERSAL DEFINITIONS OF MYOCARDIAL INFARCTION. THE UPPER REFERENCE LIMIT (URL) OF TROPONIN, DEFINED THE 99TH PERCENTILE OF cTnI DISTRIBUTION IN A REFERENCE POPULATION, HAS BEEN CONFIRMED THE DECISION THRESHOLD FOR IN DIAGNOSIS. Performed By: #### C MADM, LIPA, CMP ####[facility] [address] [address]Dr. Nita Iverson ARIES 47 ng/mL Normal 9-82 [facility] Comment on above: Performed By: #### C JANETH DENSONA, CMP ####[facility] [address] [address]Dr. Nita Iverson CBC AUTO DIFFon 09-21-2022 BASO # 0.1 103/ul Normal 0.0-0.1 [facility] Comment on above: Performed By: #### C BC #### [facility] [address] [place] [address] Dr. Nita Iverson Basophils/100 WBC (Bld) 0.8 % Normal 0.2-2.0 [facility] Comment on above: Performed By: #### C BC #### [facility] [address] [place] [address] Dr. Nita Iverson EO # 0.7 103/ul Normal 0.0-0.7 [facility] Comment on above: Performed By: #### C BC #### [facility] [address] [place] [address] Dr. Nita Iverson Eosinophils/100 WBC (Bld) 7.1 % Critically high 0.9-7.0 [facility] Comment on above: Performed By: #### C BC #### [facility] [address] [place] [address] Dr. Nita Iverson Erythrocyte distribution width (RBC) [Ratio] 12.3 % Normal 11.0-15.0 [facility] Comment on above: Performed By: #### C BC #### [facility] [address] [place] [address] Dr. Nita Iverson Hematocrit (Bld) [Volume fraction] 40.1 % Normal 36.0-48.0 [facility] Comment on above: Performed By: #### C BC #### [facility] [address] [place] [address] Dr. Nita Iverson Hemoglobin (Bld) [Mass/Vol] 13.6 g/dL Normal 12.0-16.0 [facility] Comment on above: Performed By: #### C BC #### [facility] [address] [place] [address] Dr. Nita Iverson IG # 0.02 10e3/ul Normal 0.00-0.03 [facility] Comment on above: Performed By: #### C BC #### [facility] [address] [place] [address] Dr. Nita Iverson IG % 0.2 % Normal 0.0-0.5 [facility] Comment on above: Performed By: #### C BC #### [facility] [address] [place] [address] Dr. Nita Iverson LYMPH # 3.0 103/ul Normal 1.2-3.8 [facility] Comment on above: Performed By: #### C BC #### [facility] [address] [place] [address] Dr. Nita Iverson Lymphocytes/100 WBC (Bld) 30.2 % Normal 20.5-60.0 [facility] Comment on above: Performed By: #### C BC #### [facility] [address] [place] [address] Dr. Nita Iverson MANUAL DIFF REQ NO Normal [facility] Comment on above: Performed By: #### C BC #### [facility] [address] [place] [address] Dr. Nita Iverson MCH (RBC) [Entitic mass] 30.0 pg Normal 26.7-34.0 [facility] Comment on above: Performed By: #### C BC #### [facility] [address] [place] [address] Dr. Nita Iverson MCHC (RBC) [Mass/Vol] 33.9 g/dL Normal 29.9-35.2 [facility] Comment on above: Performed By: #### C BC #### [facility] [address] [place] [address] Dr. Nita Iverson MCV (RBC) [Entitic vol] 88.3 fL Normal 81.0-99.0 [facility] Comment on above: Performed By: #### C BC #### [facility] [address] [place] [address] Dr. Nita Iverson MONO # 0.8 103/ul Normal 0.3-0.8 [facility] Comment on above: Performed By: #### C BC #### [facility] [address] [place] [address] Dr. Nita Iverson Monocytes/100 WBC (Bld) 7.8 % Normal 1.7-12.0 [facility] Comment on above: Performed By: #### C BC #### [facility] [address] [place] [address] Dr. Nita Iverson NEUT # 5.4 103/ul Normal 1.4-6.5 [facility] Comment on above: Performed By: #### C BC #### [facility] [address] [place] [address] Dr. Nita Iverson Neutrophils/100 WBC (Bld) 53.9 % Normal 43.0-75.0 [facility] Comment on above: Performed By: #### C BC #### [facility] [address] [place] [address] Dr. Nita Iverson Platelet mean volume (Bld) [Entitic vol] 10.4 fL Normal 9.5-13.5 [facility] Comment on above: Performed By: #### C BC #### [facility] [address] [address] [address] Nita Iverson PLT 270 103/ul Normal 150-450 [facility] Comment on above: Performed By: #### C BC #### [facility] [address] [address] [address] Nita Iverson RBC 4.54 106/ul Normal 4.20-5.40 [facility] Comment on above: Performed By: #### C BC #### [facility] [address] [address] [address] Nita Iverson WBC 10.0 103/ul Normal 4.0-11.0 [facility] Comment on above: Performed By: #### C BC #### [facility] [address] [place] [address] ABD/PELV W CONon [...] MISTY SPEARS Date: 2022-09-21 21:41 Normal [facility] ER URINE PROFILEon 3 Bilirubin Ql (U) Negative Normal NEGATIVE [facility] Comment on above: Performed By: #### U MICRO, ERUR, PREGU ####[facility] [address] [address]Dr. Nita Iverson Clarity (U) CLEAR Normal CLEAR [facility] Comment on above: Performed By: #### U MICRO, ERUR, PREGU ####[facility] [address] [place], [place] [address]Dr. Nita Iverson Color (U) LT. YELLOW Normal YELLOW [facility] Comment on above: Performed By: #### U MICRO, ERUR, PREGU ####[facility] [address] [place], [place] [address]Dr. Nita MARIEAHD A micrscopic examination will be performed if indicated. Normal [facility] Comment on above: Performed By: #### U MICRO, ERUR, PREGU ####[facility] [address] [place], [place] [address]Dr. Nita Iverson Glucose Ql (U) Negative Normal NEGATIVE [facility] Comment on above: Performed By: #### U MICRO, ERUR, PREGU ####[facility] [address] [place], [place] [address]Dr. Nita Iverson Hemoglobin Ql (U) LARGE Abnormal NEGATIVE [facility] Comment on above: Performed By: #### U MICRO, ERUR, PREGU ####[facility] [address] [address]Dr. Nita Iverson Ketones Ql (U) Negative Normal NEGATIVE [facility] Comment on above: Performed By: #### U MICRO, ERUR, PREGU ####[facility] [address] [address]Dr. Nita Kishor LEUKOCYTES Negative Normal NEGATIVE [facility] Comment on above: Performed By: #### U MICRO, ERUR, PREGU ####[facility] [address] [address]Dr. Nita Iverson Nitrite Ql (U) Negative Normal NEGATIVE [facility] Comment on above: Performed By: #### U MICRO, ERUR, PREGU ####[facility] [address] [place], [place] [address]Dr. Janniejennifer Iverson pH (U) 6.5 [pH] Normal 5-9 [facility] Comment on above: Performed By: #### U MICRO, ERUR, PREGU ####[facility] [address] [place], [place] [address]Dr. Nita Iverson SPEC GRAVITY 1.020 Normal 1.005-<=1.025 [facility] Comment on above: Performed By: #### U MICRO, ERUR, PREGU ####[facility] [address] [place], [place] [address]Dr. Nita Iverson UA PROTEIN Negative Normal NEGATIVE/ TRACE [facility] Comment on above: Performed By: #### U MICRO, ERUR, PREGU ####[facility] [address] [place], [place] [address]Dr. Nita Iverson UR MICRO IND INDICATED Normal [facility] Comment on above: Performed By: #### U MICRO, ERUR, PREGU ####[facility] [address] [place], [place] [address]Dr. Nita Iverson Urobilinogen Qn (U) 1.0 {Senait'U}/dL Normal 0.2 - 1. 0 [facility] Comment on above: Performed By: #### U MICRO, ERUR, PREGU ####[facility] [address] [place], [place] [address]DrMaribel Iverson LIPASEon 09-21-2022 Lipase [Catalytic activity/Vol] 89.0 U/L Normal 73.0-393.0 [facility] Comment on above: Performed By: #### C MADM, LIPA, CMP ####[facility] [address] [place], [place] [address]EyDr. Nita Iverson URon 09-21-2022 , QUAL Negative Normal NEGATIVE [facility] Comment on above: Performed By: #### U MICRO, ERUR, PREGU ####[facility] [address] [id number]. Nita Iverson PROF 14(COMP METB)on 023 Albumin [Mass/Vol] 3.5 g/dL Normal 3.4-5.0 [facility] Comment on above: Performed By: #### C MADM, LIPA, CMP #### [facility] [address] [address] [address] Nita Iverson Albumin/Globulin [Mass ratio] 1.0 {ratio} Normal [facility] Comment on above: Performed By: #### C MADM, LIPA, CMP #### [facility] [address] [address] [address] Nita Iverson ALP [Catalytic activity/Vol] 67 U/L Normal 46-116 [facility] Comment on above: Performed By: #### C MADM, LIPA, CMP #### [facility] [address] [address] [address] Nita Iverson ALT [Catalytic activity/Vol] 30 U/L Normal 14-59 [facility] Comment on above: Performed By: #### C MADM, LIPA, CMP #### [facility] [address] [address] [address] Nita Iverson Anion gap [Moles/Vol] 11.8 mmol/L Normal [facility] Comment on above: Performed By: #### C MADM, LIPA, CMP #### [facility] [address] [address] [address] Nita Iverson AST [Catalytic activity/Vol] 25 U/L Normal 15-37 [facility] Comment on above: Performed By: #### C JANETH DENSONA, CMP #### [facility] [address] [place] [address] Dr. Nita Iverson Bilirubin [Mass/Vol] 0.3 mg/dL Normal 0.2-1.0 [facility] Comment on above: Performed By: #### C JARETT LIPA, CMP #### [facility] [address] [place] [address] Dr. Nita Iverson Calcium [Mass/Vol] 9.2 mg/dL Normal 8.5-10.1 [facility] Comment on above: Performed By: #### C JANETH DENSONA, CMP #### [facility] [address] [place] [address] Dr. Nita Iverson Chloride [Moles/Vol] 106 mmol/L Normal 98-107 [facility] Comment on above: Performed By: #### C JARETT LIPA, CMP #### [facility] [address] [place] [address] Dr. Nita Iverson CO2 [Moles/Vol] 28.7 mmol/L Normal 21.0-32.0 [facility] Comment on above: Performed By: #### C JARETT LIPA, CMP #### [facility] [address] [place] [address] Dr. Nita Iverson Creatinine [Mass/Vol] 0.81 mg/dL Normal 0.55-1.02 [facility] Comment on above: Performed By: #### C JARETT LIPA, CMP #### [facility] [address] [place] [address] Dr. Nita Iverson EGFR-AF CANADIAN >60 Normal >=60 [facility] Comment on above: Performed By: #### C JARETT LIPA, CMP #### [facility] [address] [place] [address] Dr. Nita Iverson EGFR-NON AF CANADIAN >60 Normal >=60 [facility] Comment on above: Performed By: #### C JARETT LIPA, CMP #### [facility] [address] [address] [address] Nita Iverson Globulin (S) [Mass/Vol] 3.5 g/dL Normal [facility] Comment on above: Performed By: #### C MADM, LIPA, CMP #### [facility] [address] [address] [address] Nita Iverson Glucose [Mass/Vol] 106 mg/dL Normal 74-106 [facility] Comment on above: Performed By: #### C MADM, LIPA, CMP #### [facility] [address] [address] [address] Nita Iverson Potassium [Moles/Vol] 4.5 mmol/L Normal 3.5-5.1 [facility] Comment on above: Performed By: #### C MADM, LIPA, CMP #### [facility] [address] [address] [address] Nita Iverson Protein [Mass/Vol] 7.0 g/dL Normal 6.4-8.2 [facility] Comment on above: Performed By: #### C MADM, LIPA, CMP #### [facility] [address] [address] [address] Nita Iverson Sodium [Moles/Vol] 142 mmol/L Normal 136-145 [facility] Comment on above: Performed By: #### C MADM, LIPA, CMP #### [facility] [address] [address] [address] Nita Iverson Urea nitrogen [Mass/Vol] 12.0 mg/dL Normal 7.0-18.0 [facility] Comment on above: Performed By: #### C MADM, LIPA, CMP #### [facility] [address] [address] [address] Nita Iverson Urea nitrogen/Creatinine [Mass ratio] 14.8 mg/mg Normal [facility] Comment on above: Performed By: #### C MADM, LIPA, CMP #### [facility] [address] [address] [address] Nita Iverson URINE MICROSCOPIC ONLYon BACTERIA NONE SEEN Normal NONE SEEN [facility] Comment on above: Performed By: #### U MICRO, ERUR, PREGU ####[facility] [address] [address]Dr. Nita Iverson Bacteria identified Cx Nom (U) NOT INDICATED Normal [facility] Comment on above: Performed By: #### U MICRO, ERUR, PREGU ####[facility] [address] [address]Dr. Nita Iverson CAST NONE SEEN Normal NONE SEEN [facility] Comment on above: Performed By: #### U MICRO, ERUR, PREGU ####[facility] [address] [address]Dr. Nita Iverson Crystals LM Nom (Urine sed) NONE SEEN Normal NONE SEEN [facility] Comment on above: Performed By: #### U MICRO, ERUR, PREGU ####[facility] [address] [address]Dr. Nita Iverson Epithelial cells LM Ql (Urine sed) RARE Normal NONE SEEN /RARE [facility] Comment on above: Performed By: #### U MICRO, ERUR, PREGU ####[facility] [address] [address]Dr. Nita Iverson MUCOUS NONE SEEN Normal NONE SEEN [facility] Comment on above: Performed By: #### U MICRO, ERUR, PREGU ####[facility] [address] [address]Dr. Nita Iverson RBC 20-50 Abnormal 0-2 [facility] Comment on above: Performed By: #### U MICRO, ERUR, PREGU ####[facility] [address] [address]Dr. Nita Iverson WBC 2-5 Abnormal NONE SEEN [facility] Comment on above: Performed By: #### U MICRO, ERUR, PREGU ####[facility] [address] [address]Dr. Nita Iverson US THYROIDon 09-06-2022 US THYROID [...] by: PREET RODRIGEZ Date: 2022-09-06 20:19 Normal [facility] MRI HIP RT WO CONon 08-19-19 23 MRI HIP RT WO CON EXAM: MRI HIP RT WO CON HISTORY: Right hip pain COMPARISON: X-rays 07/07/2022 TECHNIQUE: Axial and coronal large gntee-pq-syxb sequencing through the pelvis and both hips. Small yczdo-tm-ljsw coronal, sagittal and axial sequencing through the [...] at approximately the 11:00 position (coronal small cnorc-jh-mqwo 14). The remainder of the labrum exhibits no gross irregularity. The left acetabulum is normal. The bilateral femoral head and acetabular cartilage exhibits no chondral or osteochondral irregularity. The pubic symphysis and sacroiliac joints are normal. Thickening and interstitial edema of the right gluteus medius tendon insertion to the greater trochanter (coronal small tvfih-vg-tnyl 13 and axial large injvk-ve-qvaj 23). Mild amount of adjacent edema. No abnormal bursal fluid collection. Questionable mild thickening and interstitial edema of the left gluteus minimus tendon (coronal large fhchj-ws-gmeo 17 and axial large vjcwy-kr-tcsw 23 and to a lesser degree the gluteus medius tendon (coronal large xzuwi-tp-udvx 21). No tendon tear, tendon tear or [...] by: PAULETTE PHIPPS Date: 2022-08-18 22:39 Normal [facility] PAP ACOG PANEL 2: 30 to 65on 08-11-2022 . . Normal [facility] Comment on above: Result Comment: Perf ormed at: WB Performed By: #### [id number] ####[facility] [address] [place] [id number] Iverson Age Gdln ACOG Testing 30-65 Normal [facility] Comment on above: Performed By: #### [id number] ####[facility] [address] [place], [place] [address]QjMaribel Iverson DIAGNOSIS: Comment Normal [facility] Comment on above: Result Comment: NEGA TIVE FOR INTRAEPITHELIAL LESION OR MALIGNANCY. Performed at: WB Performed By: #### [id number] ####[facility] [address] [place], [place] [address]YjMaribel Iverson HPV Aptima Negative Normal Negative [facility] Comment on above: Result Comment: This nucleic acid amplification test detects fourteen high-risk HPV types (16,18,31,33,35,39,45,51,52,56,58,59,66,68) without differentiation. Performed at: =G Performed By: #### 4 [id number] ####[facility] [address] [place] [id number] Iverson HPV Genotype Reflex Comment Normal [facility] Comment on above: Result Comment: Crit eria not met, HPV Genotype not performed. Performed at: WB Performed By: #### 4 [id number] ####[facility] [address] [place] [id number]. Nita Iverson Methodology: Comment Normal [facility] Comment on above: Result Comment: This liquid based ThinPrep(R) pap test was screened with the use of an image guided system. Performed at: WB Performed By: #### [id number] ####[facility] [address] [place], [place] [address]DrMaribel Iverson Note: Comment Normal [facility] Comment on above: Result Comment: The Pap smear is a screening test designed to aid in the detection of premalignant and malignant conditions of the uterine cervix. It is not a diagnostic procedure and should not be used as the sole means of detecting cervical cancer. Both false-positive and false-negative reports do occur. . Performed at: WB Performed By: #### [id number] ####[facility] [address] [place], [place] [address]DrMaribel Iverson Performed by: Comment Normal [facility] Comment on above: Result Comment: Jordana Pruett, Cleaner Wall (ASCP) Performed at: WB Performed By: #### [id number] ####[facility] [address] [place] [address]Dr. Nita Iverson Specimen adequacy: Comment Normal [facility] Comment on above: Result Comment: Sati sfactory for evaluation. No endocervical component is identified. Performed at: WB Performed By: #### 4 [id number] ####[facility] [address] [place] [address]DrMaribel Iverson US PELVIS AND TRANSVAGon US PELVIS [...] by: PAULETTE GALVAN Date: 2022-06-06 17:51 Normal [facility] CT ABD/PELV WO W CONon 04-25 [...] by: PREET RODRIGEZ Date: 2022-04-25 08:09 Normal [facility] NM RENAL W_WO PHARMon 2021 NM [...] by: PAULETTE GALVAN Date: 2022-03-22 17:23 Normal [facility] XR KUB 1 VIEWon 03-22-2022 XR [...] by: PAULETTE GALVAN Date: 2022-03-22 17:57 Normal [facility] US THYROIDon 03-09-2022 US THYROID EXAMINATION: [...] IMPRESSION: Multinodular goiter, grossly stable TI-RADS: The [employer] TI-RADS committee's white paper recommendations for thyroid lesions classified as TR4 (moderately suspicious) are listed below: > 1.0 cm. Follow-up ultrasound in 1, 2, 3, and 5 years. > 1.5 cm. FNA. J. Am Rosendo Radiol 2017;14:587-595. Electronically authenticated by: PAULETTE GALVAN Date: 2022-03-09 07:07 Normal [facility] CT ABD/PELV WO W CONon 03-07 [...] noted; no acute findings. Electronically authenticated by: PRETE RODRIGEZ Date: 2022-03-07 16:45 Normal [facility] CNOVon 02-21-2022 [facility] Office Visit (SILVERIO) -------- SAHU,STACEY ([id number]) 1975 F Date Time Provider Department 02/21/22 1:00 PM SHIRAZ BO During your visit today, we recorded the following information about you: Pulse Blood pressure Weight 76/minute 138/85 88.8 kg Shiraz oB DO 03/13/2022 1:15 PM Signed [facility] - Medical Spine Initial [...] gel - no benefit Therapies PT at [facility] in [place] in June 2021 - 2 times per week for 1 month, exercises, TENS, ice - no relief Ice/heat Prior spine/MSK interventions: -12/31/21 Dr. Muñoz: R GTB CSI - minimal relief for 1 day. -06/2021 Possibly a R GTB CSI at a 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 Normal [facility] MG MAMM SCREEN 3D GRACIE CADon 02-09-2022 MG MAMM SCREEN 3D GRACIE CAD Patient: STACEY SAHU Exam Date: 02/09/2022 : 1975 Gender:F Ordering : NIURKA RYAN BEAUTY SALES ADVISOR Admission #: [id number] Family : Order #: [id number] CLICK HERE TO VIEW EXAM RADIOLOGY REPORT [...] colon cancer at age 56. LOCATION: [facility] BREAST COMPOSITION: Scattered areas fibroglandular density. [...] M.D. on 02/09/2022 at 14:53 Normal [facility] Covid-19 PCR (CVDTB)on SARS-CoV-2 (COVID-19) RNA IZAIAH+probe Ql (Unsp spec) Detected Critically abnormal NOT DETECTED [facility] Comment on above: Result Comment: This test is not yet approved or cleared by the [place] FDA. When there are no FDA-approved or cleared tests available, and other criteria are met, FDA can make tests available under an emergency access mechanism called an Emergency Use Authorization (EUA). The EUA for this test is supported by the [place] of Health and Human Service's declaration that [...] used). Performed By: #### C VDTB #### [facility] [address] [place] [address] Dr. Nita Figueroa 01-17-2022 CNOV Office Visit (LOORRM) -------- STACEY SAHU ([id number]) 1975 F Date Time Provider Department 01/17/22 3:30 PM BREZEY MUÑOZ During your visit today, we recorded the following information about you: Breezy Muñoz DO 01/17/2022 3:48 PM Signed SERVICE DATE: January 17, 2022 PCP: Essie Ryan, BEAUTY SALES ADVISOR, BEAUTY SALES ADVISOR Patient was self-referred. Subjective Patient ID: Stacey [...] x 4 Crohn's disease without complication (HCC) [id number] Pulmonary Htn (Hcc) Obese Nirmala (Obstructive Sleep [...] TO S (more content not included)... Normal [facility] CNOVon 12-31-2021 CNOV Office Visit (LOORRM) -------- STACEY SAHU ([id number]) 1975 F Date Time Provider Department 12/31/21 1:00 PM BREEZY MUÑOZ During your visit today, we recorded the following information about you: Breezy Muñoz DO 12/31/2021 1:10 PM Signed SERVICE DATE: December 31, 2021 PCP: Essie Ryan, NIURKA, BEAUTY SALES ADVISOR Patient was self-referred. Subjective Patient ID: Stacey [...] x 4 Crohn's disease without complication (HCC) [id number] Pulmonary Htn (Hcc) Obese Nirmala (Obstructive Sleep [...] Care Vi (more content not included)... Normal [facility] MR femur RT wo/w conon 12-04 MR femur RT wo/w con [facility] [place] [address] MRI Report Signed Patient: Stacey Sahu MR#: [id number] : 1975 Acct:[id number] Age/Sex: 46 / F ADM Date: 12/03/21 Loc: MR Room: Type: [facility] Attending Dr: Alexis Saenz II, MD [...] Stock Jr., M.D.12/04/2021 3:45 PM Dictation Location: [place] [address] Transcribed By: [facility] 12/04/21 1545 Dictated By: Breezy Stock Jr, MD 12/04/21 1519 Signed By: 12/04/21 1545 Normal [facility] XR femur RT 2V*on 11-17-2021 XR femur RT 2V* [facility] [place] [address] XRay Report Signed Patient: Stacey Sahu MR#: [id number] : 1975 Acct:[id number] Age/Sex: 46 / F ADM Date: 11/17/21 Loc: [facility] Room: Type: [facility] Attending Dr: Alexis Saenz II, MD Ordering Provider: Alexis Saenz MD Date of Service: 11/17/21 XR/XR hip RT min 2V(w/wo pelvis)*: Right hip pain ([id number]) XR/XR femur RT 2V*: Right hip pain [...] Vipin Iniguez M.D.11/17/2021 3:56 PM Dictation Location: [place] [address] Transcribed By: [facility] 11/17/21 1556 Dictated By: Vipin Iniguez DO 11/17/21 1553 Signed By: 11/17/21 1556 [facility] Large Joint Arthro/Inj: R gr eater trochanteric bursa [facility] Vital Signs Date Time Vital Sign Value Performing Clinician Facility 09-12-2023 07:42-0400 Diastolic blood pressure 103 mm[Hg] Imani Chan APRN-BEAUTY SALES ADVISOR Work Phone: [facility] 09-12-2023 07:42-0400 Heart rate 95 /min Imani Chan APRN-BEAUTY SALES ADVISOR Work Phone: [facility] 09-12-2023 07:42-0400 Respiratory rate 18 /min Imani Chan APRN-BEAUTY SALES ADVISOR Work Phone: [facility] 09-12-2023 07:42-0400 SaO2% (BldA) [Mass fraction] 99 % Imani Chan DESK ASSISTANT-BEAUTY SALES ADVISOR Work Phone: [facility] 09-12-2023 07:42-0400 Systolic blood pressure 136 mm[Hg] Imani Chan DESK ASSISTANT-BEAUTY SALES ADVISOR Work Phone: [facility] 06-28-2023 10:34-0500 Body height 149.9 cm Evans Anderson PA-C Work Phone: [facility] 06-28-2023 10:34-0500 Body mass index (BMI) [Ratio] 38.78 kg/m2 Evans Verhoff PA-C Work Phone: [facility] [employer] [facility] 06-28-2023 10:34-0500 Body weight 87.09 kg Evans Verhoff PA-C Work Phone: [facility] [employer] [facility] 06-28-2023 10:34-0500 Diastolic blood pressure 107 mm[Hg] Evans Verhoff PA-C Work Phone: [facility] 06-28-2023 10:34-0500 Heart rate 93 /min Evans Verhoff PA-C Work Phone: [facility] 06-28-2023 10:34-0500 SaO2% (BldA) [Mass fraction] 97 % Evans Verhoff PA-C Work Phone: [facility] 06-28-2023 10:34-0500 Systolic blood pressure 139 mm[Hg] Evans Verhoff PA-C Work Phone: [facility] 05-29-2023 14:39-0500 Blood Pressure Location Josechamp GARCIA [facility] 05-29-2023 14:39-0500 Diastolic blood pressure 83 mm[Hg] Jose GARCIA [facility] 05-29-2023 14:39-0500 Heart rate 88 /min Jose GARCIA [facility] 05-29-2023 14:39-0500 Respiratory rate 16 /min Jose GARCIA [facility] 05-29-2023 14:39-0500 Systolic blood pressure 131 mm[Hg] Jose GARCIA [facility] 11-24-2022 13:48-0400 Diastolic blood pressure 106 mm[Hg] Beth SALAM [facility] 11-24-2022 13:48-0400 Mean blood pressure 121 mm[Hg] Beth SALAM [facility] 11-24-2022 13:48-0400 Systolic blood pressure 152 mm[Hg] Beth SALAM [facility] 11-24-2022 13:46-0400 Blood Pressure Location Beth SALAM [facility] 11-24-2022 13:46-0400 Diastolic blood pressure 118 mm[Hg] Beth SALAM [facility] 11-24-2022 13:46-0400 Heart rate 80 /min Beth SALAM [facility] 11-24-2022 13:46-0400 Respiratory rate 16 /min Beth SALAM [facility] 11-24-2022 13:46-0400 Systolic blood pressure 161 mm[Hg] Beth SALAM [facility] 04-26-2022 12:03-0400 Blood Pressure Location Jose GARCIA [facility] 04-26-2022 12:03-0400 Diastolic blood pressure 95 mm[Hg] Jose GARCIA [facility] 04-26-2022 12:03-0400 Heart rate 102 /min Jose GARCIA [facility] 04-26-2022 12:03-0400 Systolic blood pressure 141 mm[Hg] Jose GARCIA [facility] 02-21-2022 12:39-0400 Body weight 88.81 kg Shiraz Bo DO Work Phone: [facility] 02-21-2022 12:39-0400 Diastolic blood pressure 85 mm[Hg] Shiraz Bo DO Work Phone: [facility] 02-21-2022 12:39-0400 Heart rate 76 /min Shiraz Bo DO Work Phone: [facility] 02-21-2022 12:39-0400 Systolic blood pressure 138 mm[Hg] Shiraz Bo DO Work Phone: [facility] 12-09-2021 09:00-0400 Body height 160.02 cm Alexis Iroquois II Other [facility] Other 12-09-2021 09:00-0400 Body mass index (BMI) [Ratio] 34.47 kg/m2 Alexis Dany II Other [employer] Other 12-09-2021 09:00-0400 Body weight 88.27 kg Alexis Dany II Other [facility] Other 11-17-2021 15:30-0400 Body height 160.02 cm Alexis Iroquois II Other [facility] Other 11-17-2021 15:30-0400 Body mass index (BMI) [Ratio] 32.41 kg/m2 Alexis Iroquois II Other [facility] Other 11-17-2021 15:30-0400 Body weight 83.01 kg Alexis Iroquois II Other [facility] Other Encounters Encounter Date Encounter Type Care Provider Facility Start: 11-28-2023 ambulatory LESLIE Singleton ty:FLORENTIN Tobias Start: 10-25-2023 End: 10-25-2023 ambulatory SHAIKH MARIJA Not Available Start: 09-28-2023 End: 09-28-2023 ambulatory ESSIE AICHHOLZ Not Available Start: 09-20-2023 Telephone encounter Nora FROST [facility] Start: 09-12-2023 End: 09-12-2023 ambulatory [facility] Start: 09-12-2023 End: 09-12-2023 Office outpatient visit 15 minutes [facility] DESK ASSISTANT-BEAUTY SALES ADVISOR Work Phone: [facility] Comment on above: Chronic right hip pa in (Primary Dx) Start: 09-06-2023 End: 09-06-2023 ambulatory NEDA CACERES Not Available Start: 09-01-2023 End: 09-02-2023 ambulatory PJ Medina GANNON [facility] Start: 08-26-2023 End: 08-26-2023 ambulatory MARY DANIELS Not Available Start: 08-21-2023 End: 08-21-2023 ambulatory [facility] Start: 07-13-2023 End: 07-14-2023 ambulatory ESSIE AICHHOLZ Not Available Start: 07-11-2023 End: 07-11-2023 ambulatory Juliana Block Other [facility] Other Start: 07-11-2023 Office outpatient vi sit 25 minutes Juliana Block [facility] Start: 07-04-2023 End: 07-04-2023 ambulatory ESSIE AICHHOLZ Not Available Start: 06-28-2023 End: 06-28-2023 ambulatory EVANS ANDERSON [facility] Start: 06-28-2023 End: 06-28-2023 Office outpatient visit 15 minutes Evans Anderson PA-C Work Phone: [facility] Comment on above: Lumbar radiculopathy (Primary Dx) Start: 05-29-2023 End: 05-30-2023 ambulatory Jose Javy JOSE Facility:[facility] Start: 05-29-2023 End: 05-29-2023 Patient encounter procedure Jose Palafox JOSE [facility] Start: 05-10-2023 End: 05-10-2023 ambulatory NEDA CACERES Not Available Start: 02-02-2023 End: 02-03-2023 ambulatory Beth SALAM Facility:[facility] Start: 02-02-2023 End: 02-03-2023 ambulatory Beth SALAM Facility:[facility] Start: 02-02-2023 End: 02-02-2023 Lab Drop off Beth SALAM [facility] Start: 02-01-2023 End: 02-02-2023 ambulatory Beth SALAM Facility:[facility] Start: 02-01-2023 End: 02-01-2023 Patient encounter procedure Beth SALAM [facility] Start: 01-05-2023 End: 01-06-2023 ambulatory Beth SALAM Facility:[facility] Start: 01-03-2023 End: 01-04-2023 ambulatory Beth SALAM Facility:CD:[id number] Start: 12-06-2022 End: 12-07-2022 ambulatory Beth SALAM Facility:[facility] Start: 12-06-2022 End: 12-06-2022 Patient encounter procedure Beth SALAM [facility] Start: 11-24-2022 End: 11-25-2022 ambulatory SHAIKH MARIJA Facility:[facility] Start: 11-24-2022 End: 11-24-2022 Patient encounter procedure Beth SALAM [facility] Start: 11-22-2022 End: 11-23-2022 ambulatory CAN HACKER Facility:[facility] Start: 11-08-2022 End: 11-08-2022 ambulatory CAN [facility] Start: 11-08-2022 End: 11-08-2022 Encounter for preprocedural cardiovascular examination [facility] Start: 11-08-2022 End: 11-09-2022 ambulatory BYRON BENITEZEPIMIPATHY . Facility:[facility] Start: 10-26-2022 End: 10-27-2022 ambulatory NIURKA RYAN Facility:[facility] Start: 10-18-2022 End: 10-18-[address] NEDA CACERES Facility:[facility] Start: 10-04-2022 End: 10-05-[address] NEDA CACERES Facility:[facility] Start: 09-28-2022 ambulatory [facility] Start: 09-21-2022 End: 09-22-2022 ambulatory EDNA [...] encounter procedure Jose GARCIA [facility] Start: 04-22-2022 End: 04-23-2022 ambulatory NIURKA ESSIE RYAN Facility:[facility] Start: 03-29-2022 End: 03-30-[address] MARKO MORALES . Facility:[facility] Start: 03-22-2022 End: 03-23-2022 ambulatory NIURKA ALANIZSAEKamila Facility:[facility] Start: 03-22-2022 End: 03-23-[address] MARKO MORALES . Facility:[facility] Start: 03-08-2022 End: 03-09-[address] NEDA CACERES Facility:[facility] Start: 03-08-2022 End: 03-08-2022 Patient encounter procedure Jose GARCIA [facility] Start: 03-07-2022 End: 03-08-2022 ambulatory NIURKA RYAN Facility:[facility] Start: 02-21-2022 End: 02-21-2022 ambulatory ESSIE RYAN Facility:[facility] Start: 02-21-2022 End: 02-21-2022 Patient [...] Start: 01-17-2022 End: 01-17-2022 ambulatory ESSIE RYAN Facility:[facility] Start: 01-17-2022 End: 01-17-2022 Patient encounter procedure Breezy Muñoz DO Work Phone: Orthopaedics Comment on above: Trochanteric bursiti s of right hip (Primary Dx); Lumbago-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 Start: 01-05-2022 End: 01-05-2022 ambulatory Alexis Iroquois II Other [facility] Other Start: 01-05-2022 Telephone encounter Alexis Dany II [facility] Start: 12-31-2021 End: 12-31-2021 ambulatory BREEZY MUÑOZ Facility:[facility] Start: 12-31-2021 End: 12-31-2021 Patient encounter procedure Breezy Muñoz DO Work Phone: Orthopaedics Comment on above: Trochanteric bursiti s of right hip (Primary Dx) Start: 12-09-2021 End: 12-09-2021 ambulatory Alexis Iroquois II Other [facility] Other Start: 12-09-2021 Office outpatient vi sit 25 minutes Alexis Iroquois II [facility] Start: 11-17-2021 End: 11-17-2021 ambulatory Alexis Dany II Other [facility] Other Start: 11-17-2021 Office outpatient ne w 45 minutes Alexis Dany II [facility] Start: 06-02-2017 End: 06-03-2017 Ambulatory DEFAULT PHYSICIAN Facility:[facility] Start: 05-15-2017 End: 05-16-2017 Ambulatory DEFAULT PHYSICIAN Facility:[facility] Start: 05-01-2017 End: 05-02-2017 Ambulatory DEFAULT PHYSICIAN Facility:[facility] Procedures Date Procedure Procedure Detail [...] of 3 - Risk 3-dose series) [facility] Start: 09-11-2024 Tobacco Screening Tobacco Screening [facility] Start: 08-21-2024 Adult BMI Screening Adult BMI Screening [facility] Start: 06-28-2024 Adult BMI Screening Adult BMI Screening [facility] Start: 06-28-2024 Tobacco Screening Tobacco Screening [facility] Start: 12-15-2023 DIABETES SCREEN DIABETES SCREEN [facility] Start: 08-30-2023 End: 08-30-2023 Patient encounter procedure 08/30/2023 8:15 AM EST Office Visit [facility] [address] [place] [id number] Evans Anderson PAAllan [address] [facility] [place] [address] [facility] Start: 02-24-2023 Influenza vaccination Influenza Vaccine [facility] Start: 02-14-2023 Adult depression screening assessment DEPRESSION SCREENING [facility] Start: 02-24-2022 Influenza vaccination INFLUENZA (#1) [facility] Start: 12-15-2021 Colonoscopy COLONOSCOPY [facility] Start: 12-15-2021 COLORECTAL CANCER SCREENING COLORECTAL CANCER SCREENING [facility] Start: 2021 COLOGUARD (FIT-DNA) COLOGUARD (FIT-DNA) [facility] Start: [address] COLONOGRAPHY [facility] Start: 2021 FECAL OCCULT BLOOD FECAL OCCULT BLOOD [facility] Start: 2021 LIPID SCREEN LIPID SCREEN [facility] Start: 2021 SIGMOIDOSCOPY SIGMOIDOSCOPY [facility] Start: 2016 Mammography MAMMOGRAM [facility] Start: 2006 HPV TESTING HPV TESTING [facility] Start: 1997 PAP TESTING PAP TESTING [facility] Start: 1995 DTaP,Tdap and Td Vaccines (1 - Tdap) DTaP,Tdap and Td Vaccines (1 - Tdap) [facility] Start: 1995 HEPATITIS B (1 of 3 - Risk 3-dose series) HEPATITIS B (1 of 3 - Risk 3-dose series) [facility] Start: 1995 Urine microalbumin profile DTAP,TDAP,TD (1 - Tdap) [facility] Start: 1994 Adult BMI Follow Up Plan Adult BMI Follow Up Plan [facility] Start: 1994 HIV SCREENING HIV SCREENING [facility] Start: 1994 MMR (1 of 2 - Risk 2-dose series) MMR (1 of 2 - Risk 2-dose series) [facility] Start: 1988 Adult depression screening assessment DEPRESSION SCREENING [facility] Start: 1986 MENINGOCOCCAL B: Consider based on risk (1 of 4 - Increased Risk Bexsero 2-dose series) MENINGOCOCCAL B: Consider based on risk (1 of 4 - Increased Risk Bexsero 2-dose series) [facility] Start: 1977 HEPATITIS A (1 of 2 - Risk 2-dose series) HEPATITIS A (1 of 2 - Risk 2-dose series) [facility] Start: 1976 COVID-19 VACCINE (#1) COVID-19 VACCINE (#1) [facility] Immunizations Immunization Date Immunization Notes Care Provider Kati swift 05-03-2012 influenza, whole Jose WOOTEN [facility] 05-03-2012 influenza virus vaccine, unspecified formulation Evans Anderson PA-C Work Phone: [facility] Payers Date Payer Category Payer Private Health Insurance [facility] [id number] 2022-Present [phone] [address] [place] [address] [id number] 2020 Medicaid [facility] MEDICAID [facility] COMMUNITY PLAN MEDICAID [id number] 2020-Present [phone] [address] [place] [address] Medicaid [id number] 2020 Medicaid [facility] MEDICAID [facility] COMMUNITY PLAN MEDICAID [facility] [id number] 2020-Present [phone] [address] [place] [address] Medicaid [id number] 1975 Unknown [id number] 1975 Unknown [id number] 1975 Unknown [id number] 2.16.840.1.997807.3.579. 2.593 1975 Unknown [id number] 2.16.840.1.172430.3.579. 2.593 1976 Unknown [id number] 2.16.840.1.093430.3.579. 2.593 1976 Unknown [id number] 2.16.840.1.786117.3.579. 2.593 1976 Unknown [id number] 2.16.840.1.646481.3.579. 2.593 1976 Unknown [id number] 2.16.840.1.439813.3.579. 2.593 1976 Unknown [id number] 2.16.840.1.473387.3.579. 2.593 1976 Unknown [id number] 2.16.840.1.910299.3.579. 2.593 1976 Unknown [id number] 2.16.840.1.163697.3.579. 2.593 1976 Unknown [id number] 2.16.840.1.314860.3.579. 2.593 1976 Unknown [id number] 2.16.840.1.719065.3.579. 2.593 1976 Unknown [id number] 2.16.840.1.528453.3.579. 2.593 1976 Unknown [id number] 2.16.840.1.236174.3.579. 2.593 1976 Unknown [id number] 2.16.840.1.623696.3.579. 2.593 1976 Unknown [id number] 2.16.840.1.880131.3.579. 2.593 1976 Unknown [id number] 2.16.840.1.433616.3.579. 2.593 1976 Unknown [id number] 2.16.840.1.132776.3.579. 2.593 1976 Unknown [id number] 2.16.840.1.100988.3.579. 2.593 1976 Unknown [id number] 2.16.840.1.202235.3.579. 2.593 1976 Unknown [id number] 2.16.840.1.201261.3.579. 2.593 1976 Unknown [id number] 2.16.840.1.509812.3.579. 2.593 1976 Unknown [id number] 2.16.840.1.235340.3.579. 2.727 1976 Unknown [id number] 2.16.840.1.934412.3.579. 2.727 1976 Unknown [id number] 2.16.840.1.712451.3.579. 2.727 1976 Unknown [id number] 2.16.840.1.303410.3.579. 2.727 1976 Unknown [id number] 2.16.840.1.975220.3.579. 2.727 1976 Unknown [id number] 2.16.840.1.955340.3.579. 2.727 1976 Unknown [id number] 2.16.840.1.161239.3.579. 2.727 1976 Unknown [id number] 2.16.840.1.235382.3.579. 2.727 1976 Unknown [id number] 2.16.840.1.960137.3.579. 2.727 1976 Unknown [id number] 2.16.840.1.393232.3.579. 2.727 1976 Unknown [id number] 2.16.840.1.382244.3.579. 2.1286 1976 Unknown [id number] 2.16.840.1.970943.3.579. 2.1286 1976 Unknown [id number] 2.16.840.1.960500.3.579. 2.1286 1976 Unknown [id number] 2.16.840.1.298105.3.579. 2.1286 1976 Unknown [id number] 2.16.840.1.353908.3.579. 2.1286 1976 Unknown [id number] 2.16.840.1.347664.3.579. 2.1259 1976 Unknown [id number] 2.16.840.1.258088.3.579. 2.1259 1976 Unknown [id number] 2.16.840.1.267004.3.579. 2.1259 1976 Unknown [id number] 2.16.840.1.983082.3.579. 2.1259 1976 Unknown [id number] 2.16.840.1.811748.3.579. 2.1259 1976 Unknown [id number] 2.16.840.1.275787.3.579. 2.1259 1976 Unknown [id number] 2.16.840.1.339092.3.579. 2.1259 1959 Unknown [id number] 2.16.840.1.112496.19 1959 Unknown [id number] Unknown Social History Date Type Detail Facility Start: 08-06-2020 End: 06-28-2023 Sex Assigned At [facility] Other Start: 07-27-2016 End: 04-12-2023 Tobacco smoking status HIIS Never smoked tobacco [facility] Start: 07-27-2016 End: 04-12-2023 Tobacco use and exposure Smokeless tobacco non-user [facility] Start: 12-15-2020 End: 09-12-2023 Alcohol intake Current non-drinker of alcohol (finding) [facility] Start: 1975 Sex Assigned At Not on file [facility] Start: 01-07-2022 End: 02-21-2022 Exposure to SARS-CoV-2 (event) Not sure [facility] Tobacco Past [facility] Comment on above: stopped 12 years ago stopped 12 years ago Tobacco smoking status No Smoking Status Entered [facility] Tobacco smoking status Never [facility] Start: 08-06-2020 End: 06-28-2023 History of Social function [facility] [employer] Functional Status Date Assessment Result Facility 05-29-2023 Functional Status N/A [facility] 11-24-2022 Functional Status N/A [facility] 04-26-2022 Functional Status N/A [facility] Clinical Notes 12-14-2020 to 09-20-2023 Telephone Encounter - Nora Garza CNA - 09/20/2023 2:53 PM EDTTelephone Encounter - Nora Garza CNA - 09/20/2023 2:53 PM EDTSADELA Patton - 09/12/2023 7:45 AM EDT Note Date & Type Note Facility 09-20-2023 Miscellaneous Notes [facility] Ortho called to say that they are out of network for Stacey's insurance. A referral form will be sent once she selects an orthopedic in-network documented in this encounter [facility] 09-20-2023 Telephone encounter Note [facility] called to say that they are out of network for Stacey's insurance. A referral form will be sent once she selects an orthopedic in-network [facility] 09-12-2023 History of Presen t illness Narrative [facility] [address] [place] [address] Patient: Stacey Sahu Sex: female : 1975 [...] patches min: NSAIDS, ice/heat, accupuncture, inj at [facility] Mod relief: Narcotics Sign: Steroid inj by Ortho) for the symptoms. The treatment provided moderate relief. The effect of pain on patient's ADLS: Moderate Impairment. Past Medical History: Diagnosis Date Arthritis Bipolar disorder ([facility]) Chronic pain disorder Crohn's colitis ([facility]) Depression GERD (gastroesophageal reflux disease) H/O methicillin resistant Staphylococcus aureus infection Hyperlipidemia Joint pain Pleurisy Pulmonary hypertension ([facility]) Pulmonary hypertension ([facility]) Sleep apnea cpap Past Surgical History: Procedure Laterality Date COLON SURGERY part of bowel removed d/t crohns dx HYSTERECTOMY 2017 INJECTION BURSA LARGE JOINT Right Hip Right 09/01/2023 Performed by Pj Gannon MD at [facility] SPINE TRANSFORAMINAL Right L 5,1 Nroot Right 05/26/2023 Performed by Pj Gannon MD at [facility] RELEASE DEQUERVAINS CONTRACTURE Right 10/17/2018 Performed by Dereck Bagley DO at [facility] THYROIDECTOMY, PARTIAL Allergies Allergen Reactions Penicillins [...] while taking medications prescribed by this clinic. [facility] Orthopedic Referral - Right Hip pain It [...] Metz 09/12/23 1317 documented in this encounter [facility] 07-11-2023 Evaluation note Encounter Date Diagnosis Assessment [...] treatment plan. Patient left in stable condition [facility] Other 01-03-2024 History of Present illness Narrative* Evans Anderson PA-C - 06/28/2023 10:45 AM EST [facility] [address] [place] [address] Patient: Stacey Sauh Sex: female : 1975 Age: 48 y.o. [...] min: NSAIDS, ice /heat, accupuncture, inj at [facility] Mod relief: Narcotics Sign: Steroid inj by Ortho) for the symptoms. The treatment provided moderate relief. The effect of pain on patient's ADLS: Minimal Impairment. Past Medical History: Diagnosis Date Arthritis Bipolar disorder ([facility]) Chronic pain disorder Crohn's colitis ([facility]) Depression GERD (gastroesophageal reflux disease) H/O methicillin resistant Staphylococcus aureus infection Hyperlipidemia Joint pain Pleurisy Pulmonary hypertension ([facility]) Pulmonary hypertension ([facility]) Sleep apnea cpap Past Surgical History: Procedure Laterality Date COLON SURGERY part of bowel removed d/t crohns dx HYSTERECTOMY 2017 INJECTION SPINE TRANSFORAMINAL Right L 5,1 Nroot Right 05/26/2023 Performed by Pj Gannon MD at [facility] RELEASE DEQUERVAINS CONTRACTURE Right 10/17/2018 Performed by Dereck Bagley DO at [facility] THYROIDECTOMY, PARTIAL Allergies Allergen Reactions Penicillins [...] Anderson PA-C 06/28/23 1229 [facility] Discharge instructions Patient Education 05/29/2023 15:17:27 Kidney Stones, Cmef-zb-Mrsy Kidney Stones Kidney stones are rock-like masses [...] Follow these instructions at home: Medicines Take wzvo-fxb-mreznyg and prescription medicines only as told by [...] provider. Document Revised: 02/14/2022 Document Reviewed: 02/14/2022 [employer] Patient Education 2022 [employer]. Follow Up Care 11/08/2022 13:29:10 With:JOSE FELIX, Jose Palafox, URL Address: [facility] [address] , [place] [address]- [phone] When: Unknown Comments:4 mos w/ metabolic w/u [facility] 05-16-2023 NoteNew patient here to re-establish care. Needs cleared for thyroid surgery with Dr. Caceres. Was last seen by Dr. Blackwood in 2018 for pulmonary hypertension. Denies chest pain and SOB. Does feel palpitations 3-4 times a day. Review of Systems Cardiovascular: Positive for palpitations. All other systems reviewed and are negative.[facility] 11-08-2022 NoteCardiovascular Medicine [facility] SUBJECTIVE Chief Complaint Patient presents with [...] Final Atrial Rate 05/01/2017 90 BPM Final SD Interval 05/01/2017 122 ms Final QRS DURATION 05/01/2017 98 ms Final QT Interval 05/01/2017 374 ms Final QTC CALCULATION(BEZET) 05/01/2017 457 ms Final P Selmer 05/01/2017 46 degrees Final R-Selmer 05/01/2017 60 degrees Final T Wave Selmer 05/01/2017 37 degrees Final Diagnosis 05/01/2017 Final [...] function (more content not included)... [facility]02-09-2023 NoteCONSULTATION CONSULTATION DATE: 08/04/2022 HISTORY [...] medications in three months, unless otherwise indicated.[id number] NotePROCEDURE: XR HIP RT 2 3V WO [...] authenticated by: PREET RODRIGEZ Date: 2022-07-07 15:33[facility] [id number] NoteCONSULTATION CONSULTATION DATE: 07/07/2022 HISTORY OF PRESENT [...] procedure, and she agrees to move forward.[facility] [id number] NoteCONSULTATION CONSULTATION DATE: 06/09/2022 HISTORY OF PRESENT [...] will re-evaluate with application of the diclofenac.[facility] 04-26-2022 Hospital Discharge instructions Patient Education [...] 06/12/2006 Document Revised: 03/01/2019 Document Reviewed: 05/12/2017 [employer] Patient Education 2020 [employer] 04/26/2022 12:17:47 Hematuria, Adult Hematuria, Adult [...] Follow these instructions at home: Medicines Take hord-nki-jmrhwxq and prescription medicines only as told by [...] or the blood stops without treatment. Take isqd-dmh-vuulgfg and prescription medicines only as told by your health care provider. Drink enough fluid to keep your urine clear or pale yellow. This information is not intended to replace advice given to you by your health care provider. Make sure you discuss any questions you have with your health care provider. Document Released: 06/12/2006 Document Revised: 11/06/2019 Document Reviewed: 07/15/2017 [employer] Patient Education 2020 [employer]. Follow Up Care 04/22/2022 08:39:58 With:JOSE FELIX, Jose Palafox, URL Address: [address] [place] [phone]- [phone] When:Within 6 Month(s) Comments:6 mo fu with KUB [facility] 10-04-2022 NoteCONSULTATION PROCEDURE DATE: 03/29/2022 PREOPERATIVE DIAGNOSIS: [...] Will be followed up in the office.[facility] [id number] NoteCONSULTATION CONSULTATION DATE: 03/22/2022 CHIEF COMPLAINT: Right [...] up subsequent to that. CC: Essie Ryan [facility]09-13-2022 Hospital Discharge instructions Patient Education 03/08/2022 08:47:22 [...] [facility] [address], [place] [address]- Business (1) When: Unknown Comments:Office will call to schedule follow up [facility]08-29-2022 NoteHNO ID: [id number] Author: Shiraz Bo, DO Service: ? Author Type: Physician Type: Progress Notes Filed: 03/13/2022 1:15 PM Note Text: [facility] - Medical Spine Initial [...] gel - no benefit Therapies PT at [facility] in [place] in June 2021 - 2 times per week for 1 month, exercises, TENS, ice - no relief Ice/heat Prior spine/MSK interventions: -12/31/21 Dr. Muñoz: R GTB CSI - minimal relief for 1 day. -06/2021 Possibly a R GTB CSI at a 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[place], [place] Litigation: No Workers' Compensation: No YELLOW [...] x 4 Crohn's disease without complication (HCC) [id number] Pulmonary Htn (Hcc) Obese Nirmala (Obstructive Sleep Apnea) Gerd (Gastroesophageal Reflux Disease) Crohn's Disease of Intestine (Hcc) Enterolith of Small Intestine (Hcc) Bipolar Disease, Chronic (Hcc) Other Hyperlipidemia PAST MEDICAL HISTORY Diagnosis Date Abnormal uterine bleeding s/p hysterectomy Bipolar disorder (HCC) Crohn's disease of intestine (HCC) s/p surgery GERD (gastroesophageal reflux disease) Obes (more content not included)...[facility]08-29-20[facility] History of Present illness Narrative* Shiraz Bo, - 02/21/2022 12:46 PM EDT Images from the original note were not included. [facility] [facility] - Medical [...] gel - no benefit Therapies PT at [facility] in [place] in June 2021 - 2 times per week for 1 month, exercises, TENS, ice - no relief Ice/heat Prior spine/MSK interventions: -12/31/21 Dr. Muñoz: R GTB CSI - minimal relief for 1 day. -06/2021 Possibly a R GTB CSI at a 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 Author Type: Physician Type: Progress Notes Filed: 01/17/2022 3:48 PM Note Text: SERVICE DATE: January 17, 2022 PCP: Essie Ryan, NIURKA, BEAUTY SALES ADVISOR Patient was self-referred. Subjective Patient ID: Stacey [...] x 4 Crohn's disease without complication (HCC) [id number] Pulmonary Htn (Hcc) Obese Nirmala (Obstructive Sleep [...] (primary encounter diagnosis) Plan: CONSULT TO SPINE [facility] (M51.27) Lumbago-sciatica due to displacement [...] Sahu DATE: January 17, 2022 TIME: 3:46 [facility]07-25-2022 History of Present illness Narrative* Breezy [...] x 4 Crohn's disease without complication (HCC) [id number] Pulmonary Htn (Hcc) Obese Nirmala (Obstructive Sleep [...] TIME: 3:46 PM [facility]2022 NoteHNO ID: [id number] Author: Breezy Muñoz DO Service: ? Author Type: Physician Type: Progress Notes Filed: 12/31/2021 1:10 PM Note Text: SERVICE DATE: December 31, 2021 PCP: Essie Ryan CNP, BEAUTY SALES ADVISOR Patient was self-referred. Subjective Patient ID: Stacey [...] x 4 Crohn's disease without complication (HCC) [id number] Pulmonary Htn (Hcc) Obese Nirmala (Obstructive Sleep [...] trochanteric bursa Informed Consent Consent Obtained: Verbal [place] Protocol A moment to CARE was completed. (more content not included)...[facility]07-08-[facility] History of Present illness Narrative* [...] x 4 Crohn's disease without complication (HCC) [id number] Pulmonary Htn (Hcc) Obese Nirmala (Obstructive Sleep [...] trochanteric bursa Informed Consent Consent Obtained: Verbal [place] Protocol A moment to CARE was completed. [...] TIME: 1:05 PM [facility] Evaluation note* Encounter Date Diagnosis Assessment [...] refer her to Dr. Christian with the [facility]. [facility] Other 05-25-2022 Evaluation note* Encounter Date Diagnosis [...] I will see her with those results. [facility] Other 06-21-2021 History of Past illness Narrative* Problem Noted Date Resolved Date Generalized abdominal pain 12/14/202012/16 documented as of this encounter (statuses as of 12/31/2021) [facility] History of Past illness Narrative* Problem Noted Date Resolved Date Generalized abdominal pain 12/14/202012/16 documented as of this encounter (statuses as of 01/17/2022) [facility] History of Past illness Narrative* Problem Noted Date Resolved Date Generalized abdominal pain 12/14/2020 06/23 /2021 documented as of this encounter (statuses as of 03/13/2022) [facility] No data available for this section [facility] Future Appointments Appointment Date:10/24/2022 11:30:00 AM Scheduled Provider:Jose GARCIA MD Location:[facility] Appointment Type:URO Office Visit [facility] Evaluation + Plan note Future Appointments Appointment Date:05/29/2023 02:30:00 PM Scheduled Provider:Jose GARCIA MD Location:[facility] Appointment Type:URO Office Visit Future Scheduled Tests Laboratory* Calprotectin, Fecal 11/24/22 * CBC w/ Auto Diff 11/24/22 * Comprehensive Metabolic Panel 11/24/22 * C-Reactive Protein 11/24/22 Radiology* CT Abdomen/Pelvis w/contrast (enterography) 11/24/22 [facility] Evaluation + Plan note Future Appointments Appointment Date:05/29/2023 02:30:00 PM Scheduled Provider:Jose GARCIA MD Location:[facility] Appointment Type:URO Office Visit Future Scheduled Tests Laboratory* Calprotectin, Fecal 11/24/22 * CBC w/ Auto Diff 11/24/22 * Comprehensive Metabolic Panel 11/24/22 * C-Reactive Protein 11/24/22 [facility] Future Appointments Appointment Date:02/02/2023 01:00:00 PM Scheduled Provider:Ignacia KHAN MD Location:[facility] Appointment Type:[facility] Follow Up Appointment Date:05/29/2023 02:30:00 PM Scheduled Provider:Jose GARCIA MD Location:[facility] Appointment Type:URO Office Visit Future Scheduled Tests Laboratory* Calprotectin, Fecal 11/24/22 [facility] Future Appointments Appointment Date:05/29/2023 02:30:00 PM Scheduled Provider:Jose GARCIA MD Location:[facility] Appointment Type:URO Office Visit Diagnostic Tests Pending * Calprotectin, Fecal 02/02/23 [facility] Future Appointments Appointment Date:10/02/2023 03:00:00 PM Scheduled Provider:Jose GARCIA MD Location:[facility] Appointment Type:URO Office Visit [facility] evaluation note* Diagnosis Trochanteric bursitis of right hip- Primary Enthesopathy of hip region documented in this encounter [facility] noteNo InformationNortCan[facility] [employer] 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 documented in this encounter [facility] note* Diagnosis Tendinopathy of right gluteal region- Primary Trochanteric bursitis of right hip Enthesopathy of hip region Chronic bilateral low back pain without sciatica Lumbar spondylosis Lumbosacral spondylosis without myelopathy documented in this encounter [facility] note* Diagnosis Lumbar radiculopathy- Primary Thoracic or lumbosacral neuritis or radiculitis, unspecified [facility] Diagnosis Chronic right hip pain- Primary [facility] N[facility]ative - Reported* Type Description Date Medical History acid reflux Surgical History biopsy of intestines Surgical History hysterectomy [place] [facility] Other Hospital Discharge instructions No data available for this section [facility] InstructionsNot on filedocumented in this encounter [facility] SystemInstructionsNot on filedocumented in this encounter [facility] SystemInstructionsNot on filedocumented in this encounter [facility] No data available for this section [facility] (narrative)* Consultation (Routine) - Pending Review Specialty Diagnoses / Procedures Referred By Wan gamboa Referred To Contact Orthopedic Surgery Diagnoses Chronic right hip pain Imani Chan, DESK ASSISTANT-BEAUTY SALES ADVISOR [address] [place] [address] Bang Cuellar MD [address] [place] [address] Referral ID Status Reason Start Date Expiration Date Visits Requested Visits Authorized [id number] Pending Review Specialty Services Required 09/12/2023 09/11/2024 1 1 [facility] Summary Purpose Family History No Family History Records FoundNo Family History Records FoundNo Family History Records FoundNo Family History Records FoundNo Family History Records Found No data available for this section No Family History Records FoundNo Family History Records FoundNo Family History Records Found Advance Directives No Advanced Directives Records FoundDocuments on File Type Date Recorded Patient Claim Examiner Expl anation Advance Directive(s) 12/12/2020 8:14 PM Documents on File Type Date Recorded Patient Claim Examiner Expl anation Advance Directive(s) 12/12/2020 8:14 PM Reason for Referral Specialty Diagnoses / Procedures Referred By Contac t Referred To [facility] Diagnoses Trochanteric bursitis of right hip Tendinopathy of right gluteal region Chronic bilateral low back pain without sciatica Lumbar spondylosis Procedures CONSULT TO CHIROPRACTOR OFFICE/OUTPATIENT [facility] 60-74 MINUTES Shiraz Bo DO [address] [place] [address] Referral ID Status Reason Start Date Expiration Date Visits Requested Visits Authorized [id number] Pending Review PCP Requested Referral 02/21/2022 02/21/2023 1 1 Specialty Diagnoses / Procedures Referred By Contac t Referred To [facility] Sports Medicine Diagnoses Trochanteric bursitis of right hip Tendinopathy of right gluteal region Procedures CONSULT TO SPORTS MEDICINE OFFICE/OUTPATIENT [facility] 60-74 MINUTES Shiraz Bo DO [address] [place] [address] Referral ID Status Reason Start Date Expiration Date Visits Requested Visits Authorized [id number] Authorized PCP Requested Referral 02/21/2022 02/21/2023 1 1 Specialty Diagnoses / Procedures Referred By Contac t Referred To Contact [facility] [place] Diagnoses Trochanteric bursitis of right hip Lumbago-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 Procedures CONSULT TO [facility] OFFICE/OUTPATIENT [facility] 60-74 MINUTES Breezy Muñoz, [facility] [address] [place] [address] Referral ID Status Reason Start Date Expiration Date Visits Requested Visits Authorized [id number] Authorized PCP Requested Referral 01/17/2022 01/17/2023 1 1 Reason evaluate and treat. Gluteal tendon tear vs greater trochanteric bursitis Please refer to Bang Christian MD, Orthopaedic Surgery, [facility] Diagnosis 1 Trochanteric bursiti s, right hip (M70.61) Referral Organization [facility] Referring Provider First Name Alexis Referring Provider Last Name Dany ARDON Referring Provider Specialty Orthopedic Surgery Referred Organization [facility] Referred Address [address],[place], [place],[address] Referred Provider Specialty ORTHOPEDIC S URGEON Referral [...] section and content) DATE CREATED AUTHOR 12/19/2017 [facility] DATE CREATED AUTHOR AUTHOR'S ORGANIZ ATION 12/08/2021 [facility] DATE CREATED AUTHOR AUTHOR'S ORGANIZ ATION 03/26/2022 [facility] DATE CREATED AUTHOR AUTHOR'S ORGANIZ ATION 12/04/2022 [facility] DATE CREATED AUTHOR AUTHOR'S ORGANIZ ATION 12/04/2022 [facility] DATE CREATED AUTHOR AUTHOR'S ORGANIZ ATION 09/05/2023 [facility] DATE CREATED AUTHOR AUTHOR'S ORGANIZ ATION 09/12/2023 [facility] DATE CREATED AUTHOR AUTHOR'S ORGANIZ ATION 10/26/2023 [facility] EPIC REASON FOR VISIT (unrecogniz ed section and content) Reason Comments New Specialty Diagnoses / Procedures Referred By Contac t Referred To Contact Orthopedics / ORTHOPAEDIC SURGERY Diagnoses Greater Trochanteric Bursitis right hip vs Gluteal Tendon tear *OUTSIDE IMG PT TO BRING Procedures LANA NEW NO XRAY Alexis Saenz II, MD [address] [place] [address] Breezy Muñoz, [facility] [address] [place] [address] Referral ID Status Reason Start Date Expiration Date Visits Requested Visits Authorized [id number] Authorized Financial Clearance Not Required 12/24/2021 01/23/2022 99 99 Reason Comments Follow Up Reason Comments New Patient Evaluation Lower back pain/R ight side sciatica Specialty Diagnoses / Procedures Referred By Contac t Referred To Contact [facility] [place] Diagnoses Trochanteric bursitis of right hip Lumbago-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 Procedures CONSULT TO [facility] OFFICE/OUTPATIENT [facility] 60-74 MINUTES Breezy Muñoz, [email or web address] [facility] [address] [place] [address] Referral ID Status Reason Start Date Expiration Date V isits Requested Visits Authorized [id number] Closed PCP Requested Referral 01/17/2022 01/17/2023 1 1 Reason Comments Hip Pain Reason Comments Hip Pain Source Comments (unrecognize d section and content) In the event this informatio n is protected by the Federal Confidentiality of Alcohol and Drug Abuse Patient Records regulations: The Federal rules restrict any use of the information to criminally investigate or prosecute any alcohol or drug abuse patient.[facility] the event this information is protected by the Federal Confidentiality of Alcohol and Drug Abuse Patient Records regulations: The Federal rules restrict any use of the information to criminally investigate or prosecute any alcohol or drug abuse patient.[facility] Hospital[facility] the event this information is protected by the Federal Confidentiality of Alcohol and Drug Abuse Patient Records regulations: The Federal rules restrict any use of the information to criminally investigate or prosecute any alcohol or drug abuse patient.[facility] Care Teams (unrecognized sec tion and content) [employer] Relationship Specialty Start Date End Date Essie Ryan CNP PCP - General Family Practice 07/22/16 Adán Torres Obstetrics 07/22/16 Alexis Saenz II, MD [address] [place] [address] Referring Orthopedics 12/13/21 [employer] Relationship Specialty Start Date End Date Essie Ryan CNP PCP - General Family Practice 07/22/16 Adán Torres DO Obstetrics 07/22/16 Alexis Saenz II, MD [address] [place] [address] Referring Orthopedics 12/13/21 [employer] Inspector Relationship Specialty Start Date End Date Essie Ryan, [facility] PCP - General Family Practice 07/22/16 Adán Torres, DO Obstetrics 07/22/16 Alexis Saenz II, MD [address] [place] [address] Referring Orthopedics 12/13/21 [employer] Re[employer] Inspector Relationship Specialty Start Date End Date Essie Ryan, DESK ASSISTANT-[facility] [address] [place] [id number] PCP - General Nurse Practitioner 10/03/18 [employer] Inspector Relationship Specialty Start Date End Date [facility] [address] [place] [id number] PCP - General Nurse Practitioner 10/03/18 [employer] Inspector Relationship Specialty Start Date End Date Essie Ryan, DESK ASSISTANT-[facility] [address] [place] [id number] PCP - General Nurse Practitioner 10/03/18 FOR [...] ON THE PRIMARY CLINICAL RECORDS. [facility] [employer] [facility]. provides no warranty or guarantee of the accuracy or completeness of information in this document.
== END 2023-11-08 16:32 | disposition home or self-care (01) ==
LOC: RAD 16:34
PROVIDERS: PCP Nurse Practitioner; Visit Provider Internal Medicine
DX: M79.672 Pain in left foot (principal); M77.32 Calcaneal spur, left foot
CPT/HCPCS: 73630

== ENCOUNTER 2023-11-21 10:56 | Outpatient (OUT) | payer OTHER, SELFPAY ==
--- NOTE | 2023-11-21 | XR_ITS ---
The [address] [address] Patient Name: GAMAL FIGUEROA MRN: [id number] date: 1975 Sex: F Assigned Patient Location: Current Patient Location: Accession/Order Number: [id number] Exam Date: 11/21/2023 10:59 Report Date: 11/22/2023 06:23 At the request of: YESSY LEONARD Procedure: XR foot LT min 3V PROCEDURE: XR foot LT min 3V HISTORY: LEFT FOOT PAIN , left heel pain COMPARISON: XR foot left 11/08/2023 FINDINGS: BONES:Mild degenerative changes the first metatarsophalangeal joint. Moderate size calcaneal plantar spur. SOFT TISSUES:No visible soft tissue swelling. EFFUSION:None visible. OTHER: Negative. XR/XR foot LT min 3V IMPRESSION: 1. Mild degenerative changes. 2. No acute abnormality. Electronically authenticated by: PREET RODRIGEZ Date: 11/22/2023 06:23
--- OUTSIDE RECORDS SUMMARY | 2023-11-21 11:07 | XMS_ITS ---
Patient Summarization (C-CDA 2.1 CCD) Created on: November 21, 2023 PRICILLA SAHURA Gonzalez : 1975 Sex: Female Author Organization Sample organization Care Team Providers Care Graphics Artist Name Role Phone PHYSICIAN, DEFAULT Unavailable Unavailable PHYSICIAN, DEFAULT Unavailable Unavailable AICHSAEZ, ESSIE Unavailable Unavailable PHYSICIAN, DEFAULT Unavailable Unavailable PHYSICIAN, DEFAULT Unavailable Unavailable AICHHOLZ, ESSIE Unavailable Unavailable PHYSICIAN, DEFAULT Unavailable Unavailable PHYSICIAN, DEFAULT Unavailable Unavailable [place] ESSIE Unavailable Unavailable Alexis Saenz II Unavailable CharliEssie neff CNP Primary Care Provider Adán Torres Unavailable [phone] Dany ARDON MD, Robert M Unavailable Adán Torres DO Unavailable [phone] ESSIE RYNA Primary Care Physician [phone] AicEssie neff CNP Primary Care Provider Adán Torres DO Unavailable [phone] Dany ARDON MD, Robert M Unavailable ESSIE [...] ., DR MARKO Stafford Attending Unavailable AICHHOLKamila, TRANSIT MECHANIC ESSIE Primary Care Unavailable ARTURO VANEGAS Consulting Unavailable MORALES ., DR MAROK Stafford Attending Unavailable MORALES ., DR MARKO Stafford Consulting Unavailable AICHHOLZ, TRANSIT MECHANIC ESSIE Primary Care Unavailable MORALES ., DR MARKO Stafford Admitting Unavailable APLING, ADRIANNA B Attending Unavailable APLING, ADRIANNA B Consulting Unavailable APLING, ADRIANNA B Admitting Unavailable AICHHOLZ, TRANSIT MECHANIC ESSIE Primary Care Unavailable PAULETTE PHIPPS Unavailable AICHHOLZ, TRANSIT MECHANIC ESSIE Primary Care Unavailable GARCIA ., DR BAILEY Attending Unavailable GARCIA ., DR BAILEY Consulting Unavailable GARCIA ., DR BAILEY Admitting Unavailable WEST, DR PAULETTE León Consulting Unavailable MORALES ., DR MARKO Stafford Admitting Unavailable MORALES ., DR MARKO Stafford Attending Unavailable MORALES ., DR MARKO Stafford Consulting Unavailable AICHHOLZ, TRANSIT MECHANIC ESSIE Primary Care Unavailable DELANEY ., ARTURO Consulting Unavailable MORALES ., DR MARKO Stafford Admitting Unavailable MORALES ., DR MARKO Stafford Attending Unavailable AICHHOLZ, TRANSIT MECHANIC ESSIE Primary Care Unavailable YOBANY ., DR RASMUSSEN Attending Unavailable AICHHOLZ, TRANSIT MECHANIC ESSIE Primary Care Unavailable YOBANY ., DR RASMUSSEN Admitting Unavailable WEST, DR PAULETTE León Consulting Unavailable YOBANY ., DR RASMUSSEN Consulting Unavailable AICHHOLZ, TRANSIT MECHANIC ESSIE Primary Care Unavailable GARCIA ., DR BAILEY Admitting Unavailable GARCIA ., DR BAILEY Attending Unavailable GARCIA ., DR BAILEY Consulting Unavailable ZIEBER, DR PREET Palafox Consulting Unavailable TIMMIS, DR RED Attending Unavailable TIMMIS, DR RED Consulting Unavailable TIMMIS, DR RED Admitting Unavailable AICHHOLZ, TRANSIT MECHANIC ESSIE Primary Care Unavailable ZIEBER, DR PREET Palafox Consulting Unavailable TIMMIS, DR RED Attending Unavailable TIMMIS, DR RED Consulting Unavailable TIMMIS, DR RED Admitting Unavailable AICHHOLZ, TRANSIT MECHANIC ESSIE Primary Care Unavailable ZIEBER, DR PREET Palafox Consulting Unavailable TIMMIS, DR RED Attending Unavailable TIMMIS, DR RED Consulting Unavailable AICHHOLZ, TRANSIT MECHANIC ESSIE Primary Care Unavailable TIMMIS, DR RED Admitting Unavailable WEST, DR PAULETTE León Consulting Unavailable AICHHOLZ, TRANSIT MECHANIC ESSIE Primary Care Unavailable GARCIA ., DR BAILEY Attending Unavailable GARCIA ., DR BAILEY Consulting Unavailable GARCIA ., DR BAILEY Admitting Unavailable ZIEBER, DR PREET Palafox Consulting Unavailable LAKSHMIPATHY ., NARENDRANATH Attending Marleni vailable AICHHOLZ, TRANSIT MECHANIC ESSIE Primary Care Unavailable LAKSHMIPATHY ., NARANTONIO Admitting Marleni vailable MORALES ., DR MARKO Stafford Admitting Unavailable MORALES ., DR MARKO Stafford Attending Unavailable MORALES ., DR MARKO Stafford Consulting Unavailable AICHHOLZ, TRANSIT MECHANIC ESSIE Primary Care Unavailable DELANEY ., ARTURO Consulting Unavailable AICHHOLZ, TRANSIT MECHANIC ESSIE Primary Care Unavailable WEST, DR PAULETTE León Consulting Unavailable GARCIA ., DR BAILEY Attending Unavailable GARCIA ., DR BAILEY Admitting Unavailable AICHHOLZ, TRANSIT MECHANIC ESSIE Consulting Unavailable YOBANY ., DR RASMUSSEN Attending Unavailable YOBANY ., DR RASMUSSEN Consulting Unavailable AICHHOLZ, TRANSIT MECHANIC ESSIE Primary Care Unavailable YOBANY ., DR RASMUSSEN Admitting Unavailable AICHHOLZ, TRANSIT MECHANIC ESSIE Primary Care Unavailable AICHHOLZ, TRANSIT MECHANIC ESSIE Attending Unavailable AICHHOLZ, TRANSIT MECHANIC ESSIE Consulting Unavailable AICHHOLZ, TRANSIT MECHANIC ESSIE Admitting Unavailable DELANEY ., ARTURO Admitting Unavailable DELANEY ., ARTURO Attending Unavailable AICHHOLZ, TRANSIT MECHANIC ESSIE Primary Care Unavailable ZIEBER, DR PREET Palafox Consulting Unavailable DELANEY ., ARTURO Consulting Unavailable TIMMIS, DR RED Attending Unavailable TIMMIS, DR RED Consulting Unavailable TIMMIS, DR RED Admitting Unavailable AICHHOLZ, TRANSIT MECHANIC ESSIE Primary Care Unavailable ZIEBER, DR PREET Palafox Consulting Unavailable DIAB ., EDNA Attending Unavailable DIAB ., EDNA Admitting Unavailable MARKER ., DR JIMÉNEZ Consulting Unavailable AICHHOLZ, TRANSIT MECHANIC ESSIE Primary Care Unavailable DIAB ., EDNA Consulting Unavailable OWOYELE, MISTY Consulting Unavailable AICHHOLZ, TRANSIT MECHANIC ESSIE Primary Care Unavailable AICHHOLZ, TRANSIT MECHANIC ESSIE Attending Unavailable AICHHOLZ, TRANSIT MECHANIC ESSIE Consulting Unavailable AICHHOLZ, TRANSIT MECHANIC ESSIE Admitting Unavailable RAIN, DR PREET Palafox Consulting Unavailable MORALES ., DR MARKO Stafford Attending Unavailable MORALES ., DR MARKO Stafford Admitting Unavailable AICHHOLZ, TRANSIT MECHANIC ESSIE Primary Care Unavailable MIS, DR MCCARTHY Referring Unavailable GARCIA ., DR BAILEY Consulting Unavailable MORALES ., DR MARKO Stafford Consulting Unavailable MORAIMACAN HERNANDEZ Attending Unavailable Aichholz EMAIL MARKETING COORDINATOR-TRANSIT MECHANIC, Essie Magdaleno Primary Care Provider Block, Juliana Unavailable SALAM, Beth Referring Unavailable SALAM, Beth Admitting Unavailable SALAM, Beth Attending Unavailable SALAM, Beth Admitting Unavailable SALAM, Beth Attending Unavailable SALAM, Beth Admitting Unavailable SALAM, Beth Attending Unavailable SALAM, Beth Admitting Unavailable SALAM, Beth Attending Unavailable SALAM, Beth Attending Unavailable FAWWAD, Referring Unavailable SALAM, Beth Attending Unavailable SALAM, [...] ESSIE J Primary Care Unavailable IMANI CHAN Attending Unavailable AICHHOLZ, ESSIE J Referring Unavailable AICHHOLZ, ESSIE J Primary Care Unavailable NIENBERGIMANI Attending Unavailable AICHHOLZ, ESSIE J Referring Unavailable AICHHOLZ, ESSIE J Primary Care Unavailable AICHHOLZ, ESSIE Attending Unavailable TIMMISNEDA Attending Unavailable AICHHOLZ, ESSIE Attending Unavailable MARY DANIELS Attending Unavailable AICHHOLZ, ESSIE Referring Unavailable TIMMISNEDA H Attending Unavailable AICHHOLZ, ESSIE Referring Unavailable AICHHOLZ, ESSIE Attending Unavailable FAWLISA, Attending Unavailable JANET MODI Attending Unavailable SHAIKH WHITE Attending Unavailable JAMIE RANDHAWA Attending Unavailable ARSALAN PALMER Referring Unavailable Allergies Allergy Classification Reported Allergen(s) Allergy Type Date of Onset Reaction(s) Facility (5 sources) Penicillins; Translations: [PENICILLINS] Drug allergy (disorder) 09-21-2011 [facility] Repository (3 sources) Penicillin V Drug Allergy Fever [facility] Other (6 sources) Penicillins Drug Allergy 07-27-2016 Unknown [facility] (8 sources) History of - penicillin allergy (context-depende nt category); Translations: [H/O: penicillin allergy] Drug allergy [facility] (1 source) Penicillin Drug Allergy Fever All Def Digital Other Encounters Encounter Date Encounter Type Care Provider Facility Start: 11-28-2023 ambulatory LESLIEANDER JUNG Areli ty:FLORENTIN Tobias Start: 11-16-2023 End: 11-16-2023 ambulatory JAMIE RUSHASHLEY Not Available Start: 11-08-2023 End: 11-08-2023 ambulatory MARIJA Not Available Start: 11-08-2023 End: 11-08-2023 ambulatory JANET MODI Not Available Start: 10-25-2023 End: 10-25-2023 ambulatory LUNDBERGJennifer WHITE Not Available Start: 09-28-2023 End: 09-28-2023 ambulatory ESSIE RYAN Not Available Start: 09-20-2023 Telephone encounter Nora FROST [facility] Start: 09-12-2023 End: 09-12-2023 ambulatory [facility] Start: 09-12-2023 End: 09-12-2023 Office outpatient visit 15 minutes [facility] EMAIL MARKETING COORDINATOR-TRANSIT MECHANIC Work Phone: [facility] Comment on above: Chronic right hip pa in (Primary Dx) Start: 09-06-2023 End: 09-06-2023 ambulatory NEDA CACERES Not Available Start: 09-01-2023 End: 09-02-2023 ambulatory PJ GANNON [facility] Start: 08-26-2023 End: 08-26-2023 ambulatory MARY DANIELS Not Available Start: 08-21-2023 End: 08-21-2023 ambulatory [facility] Start: 07-13-2023 End: 07-14-2023 ambulatory ESSIE AICHHOLKamila Not Available Start: 07-11-2023 End: 07-11-2023 ambulatory Juliana Block Other [facility] Other Start: 07-11-2023 Office outpatient vi sit 25 minutes Juliana [facility] Start: 07-04-2023 End: 07-04-2023 ambulatory ESSIE RYAN Not Available Start: 06-28-2023 End: 06-28-2023 ambulatory EVANSLydia LANGELUNA [facility] Start: 06-28-2023 End: 06-28-2023 Office outpatient visit 15 minutes Evans ONEILL-C Work Phone: [facility] Comment on above: Lumbar radiculopathy (Primary Dx) Start: 05-29-2023 End: 05-30-2023 ambulatory Jose GARCIA Facility:[facility] Start: 05-29-2023 End: 05-29-2023 Patient encounter procedure Jose GARCIA [facility] Start: 05-10-2023 End: 05-10-2023 ambulatory NEDA CACERES Not Available Start: 02-02-2023 End: 02-03-2023 [facility] Start: 02-02-2023 End: 02-03-2023 [facility] Start: 02-02-2023 End: 02-02-2023 Lab Drop off Beth SALAM [facility] Start: 02-01-2023 End: 02-02-2023 ambulatory Beth SALAM Facility:[facility] Start: 02-01-2023 End: 02-01-2023 Patient encounter procedure Beth SALAM [facility] Start: 01-05-2023 End: 01-06-2023 ambulatory Beth SALAM Facility:[facility] Start: 01-03-2023 End: 01-04-2023 ambulatory Beth SALAM Facility:CD:[id number] Start: 12-06-2022 End: 12-07-2022 ambulatory Ignacia KHAN Facility:[facility] Start: 12-06-2022 End: 12-06-2022 Patient encounter procedure Beth SALAM [facility] Start: 11-24-2022 End: 11-25-2022 ambulatory SHAIKH MARIJA Facility:[facility] Start: 11-24-2022 End: 11-24-2022 Patient encounter procedure Beth LANIEAM [facility] Start: 11-22-2022 End: 11-23-2022 ambulatory CAN VALERA Facility:[facility] Start: 11-08-2022 End: 11-08-2022 ambulatory [facility] Start: 11-08-2022 End: 11-08-2022 Encounter for preprocedural cardiovascular examination [facility] Start: 11-08-2022 End: 11-09-2022 ambulatory BYRON GARCIA . Facility:[facility] Start: 10-26-2022 End: 10-27-2022 ambulatory NIURKA RYAN Facility:[facility] Start: 10-18-2022 End: 10-18-[address] NEDA CACERES Facility:[facility] Start: 10-04-2022 End: 10-05-[address] NEDA CACERES Facility:[facility] Start: 09-28-2022 ambulatory Ignacia KHAN [facility] Start: 09-21-2022 End: 09-22-2022 ambulatory EDNA MCRAE . Facility:[facility] Start: 09-06-2022 End: 09-07-[address] NEDA CACERES Facility:[facility] Start: 08-18-2022 End: 08-19-2022 ambulatory ADRIANNA JIMENEZ Facility:[facility] Start: 08-04-2022 End: 08-05-2022 ambulatory [...] encounter procedure Jose GARCIA [facility] Start: 04-22-2022 End: 04-23-2022 ambulatory NIURKA RYAN Facility:[facility] Start: 03-29-2022 End: 03-30-[address] MARKO MORALES . Facility:[facility] Start: 03-22-2022 End: 03-23-2022 ambulatory NIURKA RYAN Facility:[facility] Start: 03-22-2022 End: 03-23-[address] MARKO MORALES . Facility:[facility] Start: 03-08-2022 End: 03-09-[address] NEDA CACERES Facility:[facility] Start: 03-08-2022 End: 03-08-2022 Patient encounter procedure Jose GARCIA [facility] Start: 03-07-2022 End: 03-08-2022 ambulatory NIURKA RYAN Facility:[facility] Start: 02-21-2022 End: 02-21-2022 ambulatory ESSIE RYAN Facility:[facility] Start: 02-21-2022 End: 02-21-2022 Patient encounter procedure Shiraz Bo DO Work Phone: Spine Medicine Comment on above: Tendinopathy of righ t gluteal region (Primary Dx); Trochanteric bursitis of right hip; Chronic bilateral low back pain without sciatica; Lumbar spondylosis Start: 02-09-2022 End: 02-10-2022 ambulatory TRANSIT MECHANIC ESSIE RYAN Facility:[facility] Start: 01-24-2022 End: 01-24-2022 ambulatory TRANSIT MECHANIC ESSIE RYAN Facility:[facility] Start: 01-17-2022 End: 01-17-2022 ambulatory ESSIE LAWSONJACOB Facility:[facility] Start: 01-17-2022 End: 01-17-2022 Patient encounter procedure Breezy Muñoz DO Work Phone: Orthopaedics Comment on above: Trochanteric bursiti s of right hip (Primary Dx); Lumbago-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 Start: 01-05-2022 End: 01-05-2022 ambulatory Alexis Houston II Other [facility] Other Start: 01-05-2022 Telephone encounter Alexis Dany II [facility] Start: 12-31-2021 End: 12-31-2021 ambulatory BREEZY MUÑOZ Facility:[facility] Start: 12-31-2021 End: 12-31-2021 Patient encounter procedure Breezy Muñoz DO Work Phone: Orthopaedics Comment on above: Trochanteric bursiti s of right hip (Primary Dx) Start: 12-09-2021 End: 12-09-2021 ambulatory Alexis Dany II Other [facility] Other Start: 12-09-2021 Office outpatient vi sit 25 minutes Alexis Houston II [facility] Start: 11-17-2021 End: 11-17-2021 ambulatory Alexis Houston II Other [facility] Other Start: 11-17-2021 Office outpatient ne w 45 minutes Alexis Dany II [facility] Start: 06-02-2017 End: 06-03-2017 Ambulatory DEFAULT PHYSICIAN Facility:[facility] Start: 05-15-2017 End: 05-16-2017 Ambulatory DEFAULT PHYSICIAN Facility:[facility] Start: 05-01-2017 End: 05-02-2017 Ambulatory DEFAULT PHYSICIAN Facility:[facility] Immunizations Immunization Date Immunization Notes Care Provider Kati swift 05-03-2012 influenza, whole Jose CHRISTOPHER WOOTEN [facility] 05-03-2012 influenza virus vaccine, unspecified formulation Evans Anderson PA-C Work Phone: [facility] Medications Current Medications Medication Drug Class(es) Dates [...] by mouth once daily. polyethylene glycol 3350 909693 mg / potassium chloride 1480 mg / sodium bicarbonate 5720 mg / sodium chloride 96567 mg powder for oral solution (3 sources) Osmotic Laxative Start: 11-28-2022 NuLYTELY [place] oral powder for reconstitution See Instructions, 1 EA, Refill(s) 0, See physician instructions prior to procedure., [id number], 155, cm, 11/24/22 13:47:00 EDT, Height/Length Dosing, 88.2, kg, 06/01/23 13:47:00 EDT, Weight Dosing Start Date: 11/28/22 [...] # 2 tab(s), Refills(s) 0, Pharmacy: [facility] #[id number], 155, cm, 03/03/22 15:04:00 EDT, Height/Length Dosing, 90, kg, 02/25/22 10:22:00 EDT, [place]. Start Date: 03/03/22 Status: Ordered colchicine 0.6 [...] hyperlipidemia Verified [facility] Active Payers Date Payer Category Payer Private Health Insurance [facility] [id number] 2022-Present [phone] [address] [place] [address] [id number] 2020 Medicaid UHC MEDICAID UHC COMMUNITY [employer]AN MEDICAID [id number] 2020-Present [phone] [address] [place] [address] Medicaid [id number] 2020 Medicaid UHC MEDICAID UHC COMMUNITY PLAN MEDICAID [facility] [id number] 2020-Present [phone] [address] [place] [address] Medicaid [id number] 1975 Unknown [id number] 2.16.840.1.234864.3.579. 2.593 1975 Unknown [id number] 2.16.840.1.509408.3.579. 2.593 1975 Unknown [id number] 2.16.840.1.682542.3.579. 2.593 1975 Unknown [id number] 2.16.840.1.884394.3.579. 2.593 1975 Unknown [id number] 2.16.840.1.562524.3.579. 2.593 1975 Unknown [id number] 2.16.840.1.956645.3.579. 2.593 1975 Unknown [id number] 2.16.840.1.662826.3.579. 2.593 1975 Unknown [id number] 2.16.840.1.751554.3.579. 2.593 1975 Unknown [id number] 2.16.840.1.129460.3.579. 2.593 1976 Unknown [id number] 2.16.840.1.533523.3.579. 2.593 1975 Unknown [id number] 2.16.840.1.624278.3.579. 2.593 1975 Unknown [id number] 2.16.840.1.685448.3.579. 2.593 1976 Unknown [id number] 2.16.840.1.000940.3.579. 2.593 1976 Unknown [id number] 2.16.840.1.708054.3.579. 2.593 1976 Unknown [id number] 2.16.840.1.483273.3.579. 2.593 1976 Unknown [id number] 2.16.840.1.019920.3.579. 2.593 1976 Unknown [id number] 2.16.840.1.224824.3.579. 2.593 1976 Unknown [id number] 2.16.840.1.365255.3.579. 2.593 1976 Unknown [id number] 2.16.840.1.116257.3.579. 2.593 1976 Unknown [id number] 2.16.840.1.424660.3.579. 2.593 1976 Unknown [id number] 2.16.840.1.583630.3.579. 2.593 1976 Unknown [id number] 2.16.840.1.725443.3.579. 2.593 1976 Unknown [id number] 2.16.840.1.066984.3.579. 2.593 1976 Unknown [id number] 2.16.840.1.217345.3.579. 2.727 1975 Unknown [id number] 2.16.840.1.966792.3.579. 2.727 1976 Unknown [id number] 2.16.840.1.979418.3.579. 2.727 1976 Unknown [id number] 2.16.840.1.399096.3.579. 2.727 1976 Unknown [id number] 2.16.840.1.352531.3.579. 2.727 1976 Unknown [id number] 2.16.840.1.117359.3.579. 2.727 1976 Unknown [id number] 2.16.840.1.539016.3.579. 2.727 1976 Unknown [id number] 2.16.840.1.604811.3.579. 2.727 1976 Unknown [id number] 2.16.840.1.370197.3.579. 2.727 1976 Unknown [id number] 2.16.840.1.583677.3.579. 2.727 1976 Unknown [id number] 2.16.840.1.712673.3.579. 2.6 1976 Unknown [id number] 2.16.840.1.643333.3.579. 2.1285 1976 Unknown [id number] 2.16.840.1.040872.3.579. 2.1285 1976 Unknown [id number] 2.16.840.1.847961.3.579. 2.1285 1976 Unknown [id number] 2.16.840.1.487629.3.579. 2.1285 1976 Unknown [id number] 2.16.840.1.867173.3.579. 2.9 1976 Unknown [id number] 2.16.840.1.432069.3.579. 2.9 1976 Unknown [id number] 2.16.840.1.636884.3.579. 2.9 1976 Unknown [id number] 2.16.840.1.167126.3.579. 2.9 1976 Unknown [id number] 2.16.840.1.315835.3.579. 2.9 1976 Unknown [id number] 2.16.840.1.164782.3.579. 2.9 1976 Unknown [id number] 2.16.840.1.267655.3.579. 2.9 1976 Unknown [id number] 2.16.840.1.373636.3.579. 2.9 1976 Unknown [id number] 2.16.840.1.914210.3.579. 2.9 1976 Unknown [id number] 2.16.840.1.856448.3.579. 2.1259 1959 Unknown [id number] 2.16.840.1.283612.19 1959 Unknown [id number] Unknown Plan of Treatment Date Care Activity Detail Author Start: 2036 HEPATITIS B (1 of 3 - Risk 3-dose series) HEPATITIS B (1 of 3 - Risk 3-dose series) [facility] Start: 09-11-2024 Tobacco Screening Tobacco Screening [facility] Start: 08-21-2024 Adult BMI Screening Adult BMI Screening [facility] Start: 06-28-2024 Adult BMI Screening Adult BMI Screening [facility] Start: 06-28-2024 Tobacco Screening Tobacco Screening [facility] Start: 12-15-2023 DIABETES SCREEN DIABETES SCREEN [facility] Start: 08-30-2023 End: 08-30-2023 Patient encounter procedure 08/30/2023 8:15 AM EST Office Visit [facility] [address] [place] [id number] Evans Anderson PA-C [address] [place] [address] [facility] Start: 02-24-2023 Influenza vaccination Influenza Vaccine [facility] Start: 02-14-2023 Adult depression screening assessment DEPRESSION SCREENING [facility] Start: 02-24-2022 Influenza vaccination INFLUENZA (#1) [facility] Start: 12-15-2021 Colonoscopy COLONOSCOPY [facility] Start: 12-15-2021 COLORECTAL CANCER SCREENING COLORECTAL CANCER SCREENING [facility] Start: 2021 COLOGUARD (FIT-DNA) COLOGUARD (FIT-DNA) [facility] Start: [address] COLONOGRAPHY [facility] Start: 2021 FECAL OCCULT BLOOD FECAL OCCULT BLOOD [facility] Start: 2021 LIPID SCREEN LIPID SCREEN [facility] Start: 2021 SIGMOIDOSCOPY SIGMOIDOSCOPY [facility] Start: 2016 Mammography MAMMOGRAM [facility] Start: 2006 HPV TESTING HPV TESTING [facility] Start: 1997 PAP TESTING PAP TESTING [facility] Start: 1995 DTaP,Tdap and Td Vaccines (1 - Tdap) DTaP,Tdap and Td Vaccines (1 - Tdap) [facility] Start: 1995 HEPATITIS B (1 of 3 - Risk 3-dose series) HEPATITIS B (1 of 3 - Risk 3-dose series) [facility] Start: 1995 Urine microalbumin profile DTAP,TDAP,TD (1 - Tdap) [facility] Start: 1994 Adult BMI Follow Up Plan Adult BMI Follow Up Plan [facility] Start: 1994 HIV SCREENING HIV SCREENING [facility] Start: 1994 MMR (1 of 2 - Risk 2-dose series) MMR (1 of 2 - Risk 2-dose series) [facility] Start: 1988 Adult depression screening assessment DEPRESSION SCREENING [facility] Start: 1986 MENINGOCOCCAL B: Consider based on risk (1 of 4 - Increased Risk Bexsero 2-dose series) MENINGOCOCCAL B: Consider based on risk (1 of 4 - Increased Risk Bexsero 2-dose series) [facility] Start: 1977 HEPATITIS A (1 of 2 - Risk 2-dose series) HEPATITIS A (1 of 2 - Risk 2-dose series) [facility] Start: 1976 COVID-19 VACCINE (#1) COVID-19 VACCINE (#1) [facility] Problems Active Problems Problem Classification Problem Date [...] malignant neoplasm of breast; Translations: [FAMILY HX MALANNA NEOPLASM OF BREAST] Onset: 02-10-2022 Episodic Residual codes; unclassified (1 source) Family history of malignant neoplasm of digestive organs; Translations: [FAM HX MALANNA NEOPLASM DIGESTIV ORGN] Onset: 02-10-2022 Episodic Spondylosis; [...] (2 sources) COVID-19; Translations: [COVID-19] Onset: 01-27-2022 Procedures Date Procedure Procedure Detail Performing Clinician [...] liga tion and division of fallopian tubes Josechamp GARCIA partial colectomy Jose LANGLEY Tonsillectomy Jose GARCIA Results Test Name Value Interpretation Reference Range Facil ity Lab Reportson 08-01-2023 Lab Reports [id number]#1.00TIFF Normal [facility] Lab Reportson 07-31-2023 Lab Reports [id number]#1.00TIFF Normal [facility] Lab Reportson 07-28-2023 Lab Reports [id number]#1.00TIFF Normal [facility] Lab Reports [id number]#1.00TIFF Normal [facility] Lab Reportson 07-26-2023 Lab Reports [id number]#1.00TIFF [facility] COVID/FLU/RSV RT-PCRon 07-11 SARS-CoV-2 (COVID-19) RNA IZAIAH+probe Ql (Unsp spec) [facility] Other COVID/FLU/RSV RT-PCR Negative [facility] Other Ambulatory Visit Summaryon 1 07-30-2022 Ambulatory Visit Summary STACEY SAHU :1975 Visit Date:05/29/2023 Ambulatory Visit Instructions Your Diagnosis Kidney stones Gross hematuria Tests Performed Urnls Dip Stick Auto w/o Microscopy POC 34102 Your Care Team Attending Physician - Jose [...] Schedule the Following Appointments Follow Up with GARCIA MD, Jose R, URL When: Comments: 4 mos w/ metabolic w/u Where: [facility] [address], [place] [address] [phone] Medications What How Much When Instructions Unchanged [...] Urnls Dip Stick Auto w/o Microscopy POC 10520 (05/29/2023) Bilirubin Urine Dipstick - Negative Blood Urine Dipstick - 3+ Large Glucose Urine Dipstick - Negative Ketones Urine Dipstick - Negative Leukocytes Urine Dipstick - Negative Nitrite Urine Dipstick - Negative Protein Urine Dipstick - Negative Specific Ste[place] Urine Dipstick - >=1.030 Urine Appearance Urine [...] ? Santy (more content not included)... Normal [facility] Patient Educationon 05-29-20 23 Patient Education Urology [...] these instructions at home: Medicines ? Take tkur-qqz-dotyzsn and prescription medicines only as told by [...] provider. Document Revised: 02/14/2022 Document Reviewed: 02/14/2022 [employer] Patient Education ? 2022 [employer] [facility] Urology Office/Clinic Noteon 05-29-2023 Urology Office/Clinic [...] stones id'd. CT AP w con 12/06/22 [facility] - 5mm RLP stone and 2mm LLP stone. Mild fulness at R renal pelvis with tapering at [facility]. KUB 01/05/23 [facility] - 4mm renal stone in RLP. KUB 05/24/23 [facility] - no stones id'd. Discussed imaging results. [...] [facility] [address], [place] [phone] Additional Instructions: 4 mos w/ metabolic w/u Patient Education Kidney Stones, Ttew-th-Gvpf Imani Batres, personally scribed for Dr. Garcia on 05/29/2023 15:19:03. . Documentation recorded by the scribeImani, accurately reflects the services(s) I performed and [...] Dipstick: Negative (more content not included)... Normal [facility] Comment on above: Result Comment: Elec tronically [...] with voice recognition artificial intelligence software, specifically Forkforce, SPIRIT Navigation and or Verix. Substitutions may have occurred due to the inherent limitations of voice recognition and artificial intelligence software. ATTESTATION: Documentation services were performed after patient or guardian consented to allow dianboom to record this visit. DELVIN utilization review specialist and provider reviewed before signing. DELVIN: [...] H/O: penic (more content not included)... Normal [facility] Comment on above: Result Comment: Elec tronically Signed By: Ana Rosa Iglesias\.br\Date and Time Signed: 02/02/23 15:48 EDT\.br\Electronically Co-Signed By: Ignacia KHAN MD\.br\Date and Time Co-Signed: 08/14/23 14:00 EDT Calprotectin, Fecalon 2022 Calprotectin (Stl) [Mass/Mass] 87 mcg/gm Invalid Interpretation Code 0-120 [facility] Comment on above: Result Comment: Conc entration Interpretation Follow-Up < 5 - 50 ug/g Normal None >50 -120 ug/g Borderline Re-evaluate in 4-6 weeks >120 ug/g Abnormal Repeat as clinically indicated Performed at: [facility] [id number] MD Kody Hayes Performed By: #### 1 [id number] ####[facility] [address] [place] [address] Ambulatory Visit Summaryon 0 02-02-2023 Ambulatory Visit Summary STACEY SAHU :1975 Visit Date:02/02/2023 Ambulatory Visit Instructions Your Diagnosis Crohn's disease, small intestine Chronic GERD Your Care Team Attending Physician - BILL FELIX, [facility] Primary Care Physician - ESSIE RYAN CNP [...] FELIX, Jose Palafox Where: [facility] Normal [facility] Auto Diffon 02-01-2023 Basophils/100 WBC (Bld) 2.7 % High 0.0-2.0 [facility] Comment on above: Order Comment: Order Added by Discern Expert. Performed By: #### 2 126077, 1302256, 8544362, 01402103, 1601769 ####[facility] [address] [place] [address] Basophils/Leukocyte s Auto (Bld) [Pure # fraction] 0.2 E9/L Normal 0.0-0.2 [facility] Comment on above: Order Comment: Order Added by Discern Expert. Performed By: #### 2 194812, 1701441, 9324055, 31341252, 9798377 ####[address] [place] [address] Eosinophils/100 WBC (Bld) 8.5 % High 0.0-8.0 [facility] Comment on above: Order Comment: Order Added by Discern Expert. Performed By: #### 2 625914, 9337240, 9133298, 34192513, 7216968 ####[address] [address] Eosinophils/Leukocy karina Auto (Bld) [Pure # fraction] 0.7 E9/L High 0.0-0.5 [facility] Comment on above: Order Comment: Order Added by Discern Expert. Performed By: #### 2 604712, 2391349, 0712412, 18075985, 2326467 ####[address] [address] Lymphocytes/100 WBC (Bld) 34.8 % Normal 14.0-50.0 [facility] Comment on above: Order Comment: Order Added by Roma Expert. Performed By: #### 2 355395, 7043240, 4281928, 54873388, 5922528 ####[address] [address] Lymphocytes/Leukocy karina Auto (Bld) [Pure # fraction] 2.8 E9/L Normal 1.0-4.0 [facility] Comment on above: Order Comment: Order Added by Discern Expert. Performed By: #### 2 664364, 7178281, 2672949, 57078332, 2497430 ####[address] [place] [address] Monocytes/100 WBC (Bld) 9.4 % Normal 4.0-14.0 [facility] Comment on above: Order Comment: Order Added by Discern Expert. Performed By: #### 2 217523, 7675519, 0361321, 39413065, 5122681 ####[address] [place] [address] Monocytes/Leukocyte s Auto (Bld) [Pure # fraction] 0.8 E9/L Normal 0.2-1.0 [facility] Comment on above: Order Comment: Order Added by Discern Expert. Performed By: #### 2 218111, 7358938, 9056962, 68249392, 0545738 ####[address] [address] Neutrophils/100 WBC (Bld) 44.6 % Normal 36.0-75.0 [facility] Comment on above: Order Comment: Order Added by Discern Expert. Performed By: #### 2 051434, 7287119, 0358760, 89360825, 0102439 ####[address] [address] Neutrophils/Leukocy karina Auto (Bld) [Pure # fraction] 3.5 E9/L Normal 2.0-7.5 [facility] Comment on above: Order Comment: Order Added by Discern Expert. Performed By: #### 2 986144, 0484230, 6343344, 85206363, 1249414 ####[address] [address] CBC w/ Auto Diffon 3 Erythrocyte distribution width (RBC) [Ratio] 13.6 % Normal 10.9-14.2 [facility] Comment on above: Performed By: #### 2 941129, 6207731, 9468162, 66252933, 7652291 ####[address] [address] Hematocrit (Bld) [Volume fraction] 39.5 % Normal 34.0-46.0 [facility] Comment on above: Performed By: #### 2 084711, 2736795, 2651826, 06285988, 9561469 ####[address] [address] [place] [address] Hemoglobin (Bld) [Mass/Vol] 13.3 g/dL Normal 12.0-16.0 [facility] Comment on above: Performed By: #### 2 072816, 2320042, 8351139, 48726162, 2251089 ####[address] [address] MCH (RBC) [Entitic mass] 29.1 pg Normal 27.0-34.0 [facility] Comment on above: Performed By: #### 2 154051, 0457037, 2620688, 86229659, 8035769 ####[address] [address] MCHC (RBC) [Mass/Vol] 33.7 g/dL Normal 31.4-36.0 [facility] Comment on above: Performed By: #### 2 883844, 8297802, 1328333, 99867365, 7728215 ####[address] [address] MCV (RBC) [Entitic vol] 86.4 fL Normal 80.0-100.0 [facility] Comment on above: Performed By: #### 2 648826, 9798238, 7119945, 55700127, 8594906 ####[address] [address] Platelet mean volume (Bld) [Entitic vol] 8.9 fL Normal 6.4-10.8 [facility] Comment on above: Performed By: #### 2 892968, 6916741, 4959036, 64239344, 0895672 ####[address] [address] Platelets (Bld) [#/Vol] 274.0 E9/L Normal 150.0-500.0 [facility] Comment on above: Performed By: #### 2 153822, 5127598, 3994975, 18018441, 4837215 ####[address] [place] [address] RBC (Bld) [#/Vol] 4.6 E12/L Normal 4.3-5.9 [facility] Comment on above: Performed By: #### 2 397627, 4718498, 1635467, 26867086, 8537631 ####[facility] [address] [place] [address] WBC corrected for nucl RBC Auto (Bld) [#/Vol] 8.0 E9/L Normal 4.0-11.0 [facility] Comment on above: Performed By: #### 2 517181, 8703955, 7062520, 83322803, 4204415 ####[facility] [address] [place] [address] CHEMISTRYOrdered By: SYSTEM SYSTEM on 02-01-2023 Albumin [...] rate/Area] 80 mL/min/1.73 m2 Normal >=59mL/min/1.73 m2 [facility] Chem S Globulin (S) [Mass/Vol] 3.2 g/dL Normal 1.4 - 4.0 gm/dL FT Remisol Glucose [Mass/Vol] 99 mg/dL Normal 55 - 199 mg/dL [facility] Remisol Potassium [Moles/Vol] 3.9 mmol/L Normal 3.5 - 5.3 mmol/L FT Remisol Protein [Mass/Vol] 7.2 g/dL Normal 6.0 - 7.8 gm/dL [facility] Remisol Sodium [Moles/Vol] 139 mmol/L Normal 135 - 145 mmol/L [facility] Remisol Urea nitrogen [Mass/Vol] 15 mg/dL Normal 5 - 21 mg/dL [facility] Remisol Urea nitrogen/Creatinine [Mass ratio] 17 mg/mg Normal 10 - 20 [facility] Remisol CMPon 02-01-2023 Albumin [Mass/Vol] 4.0 g/dL Normal 3.3-5.0 [facility] Comment on above: Performed By: #### 2 812743, 0319154, 1378782, 05041265, 6439545 ####[facility] [address] [place] [address] Albumin/Globulin (S) [Mass conc ratio] 1.2 Normal 1.1-2.2 [facility] Comment on above: Performed By: #### 2 726021, 1302251, 0527449, 02742888, 8669935 ####[facility] [address] [place] [address] ALP [Catalytic activity/Vol] 53 Int._Unit/L Normal 21-98 [facility] Comment on above: Performed By: #### 2 147171, 3483038, 8972742, 16675935, 6708405 ####[facility] [address] [place] [address] ALT No additional P-5'-P [Catalytic activity/Vol] 18 Int._Unit/L Normal 6-46 [facility] Comment on above: Performed By: #### 2 596567, 8243205, 2870384, 32772795, 4637855 ####[facility] [address] [place] [address] Anion gap [Moles/Vol] 13 mmol/L Normal 6-16 [facility] Comment on above: Performed By: #### 2 273383, 8432896, 0547318, 73989840, 5162097 ####[facility] [address] [place] [address] AST [Catalytic activity/Vol] 18 Int._Unit/L Normal 5-43 [facility] Comment on above: Performed By: #### 2 271031, 6846460, 1561388, 72821715, 1957040 ####[facility] [address] [place] [address] Bilirubin [Mass/Vol] 0.4 mg/dL Normal 0.0-1.1 [facility] Comment on above: Performed By: #### 2 519217, 2329063, 8025020, 67675930, 8895717 ####[facility] [address] [facility] [address] Calcium [Mass/Vol] 9.1 mg/dL Normal 8.9-11.1 [facility] Comment on above: Performed By: #### 2 062835, 5062239, 5754136, 92587386, 6525488 ####[facility] [address] [place] [address] Chloride [Moles/Vol] 106 mmol/L Normal 101-111 [facility] Comment on above: Performed By: #### 2 651331, 5976175, 7572338, 22041585, 7772471 ####[facility] [address] [place] [address] CO2 [Moles/Vol] 24 mmol/L Normal 21-31 [facility] Comment on above: Performed By: #### 2 351937, 5589685, 9400773, 78196789, 1622710 ####[facility] [address] [place] [address] Creatinine [Mass/Vol] 0.9 mg/dL Normal 0.5-1.3 [facility] Comment on above: Performed By: #### 2 351124, 0117307, 7456147, 46783409, 8718464 ####[facility] [address] [place] [address] Globulin (S) [Mass/Vol] 3.2 g/dL Normal 1.4-4.0 [facility] Comment on above: Performed By: #### 2 678114, 0832806, 7838675, 81563513, 7535473 ####[facility] [address] [place] [address] Glucose [Mass/Vol] 99 mg/dL Normal 55-199 [facility] Comment on above: Result Comment: If t his glucose result represents a fasting glucose, interpretation should refer to the following reference range: 55-99 mg/dL Performed By: #### 2 350344, 6799406, 5788614, 67979284, 2308133 ####[facility] [address] [place] [address] Potassium [Moles/Vol] 3.9 mmol/L Normal 3.5-5.3 [facility] Comment on above: Performed By: #### 2 325717, 0865886, 6692670, 35990557, 1242757 ####[facility] [address] [place] [address] Protein [Mass/Vol] 7.2 g/dL Normal 6.0-7.8 [facility] Comment on above: Performed By: #### 2 884745, 6911841, 5680192, 18391673, 2684106 ####[facility] [address] [place] [address] Sodium [Moles/Vol] 139 mmol/L Normal 135-145 [facility] Comment on above: Performed By: #### 2 426146, 0822925, 1272054, 56004930, 0982608 ####[facility] [address] [place] [address] Urea nitrogen [Mass/Vol] 15 mg/dL Normal 5-21 [facility] Comment on above: Performed By: #### 2 519345, 2890068, 9205934, 23511223, 5043675 ####[facility] [address] [place] [address] Urea nitrogen/Creatinine [Mass ratio] 17 No Units Normal 10-20 [facility] Comment on above: Performed By: #### 2 358748, 0458814, 6896319, 15780936, 1475369 ####[facility] [address] [place] [address] CRPon 02-01-2023 CRP [Mass/Vol] 0.7 mg/dL Normal <=1.[address] [facility] Comment on above: Performed By: #### 2 409208, 5663793, 7122464, 49299962, 7415196 ####[facility] [address] [place] [address] Consent for Treatmenton Consent for Treatment [id number]#1.00CD:127 Normal [facility] HEMATOLOGYOrdered By: SYSTEM SYSTEM on 02-01-2023 Basophils/100 [...] 34.8 % Normal 14.0 - 50.0 % FT HemeAutoSS Lymphocytes/Leukocy karina Auto (Bld) [Pure # fraction] 2.8 E9/L Normal 1.0 - 4.0 E9/L [facility] HemeAutoSS Monocytes/100 WBC (Bld) 9.4 % Normal 4.0 - 14.0 % FT HemeAutoSS Monocytes/Leukocyte s Auto (Bld) [Pure # fraction] 0.8 E9/L Normal 0.2 - 1.0 E9/L FT HemeAutoSS Neutrophils/100 WBC (Bld) 44.6 % Normal 36.0 - 75.0 % FT HemeAutoSS Neutrophils/Leukocy karina Auto (Bld) [Pure # fraction] 3.5 E9/L Normal 2.0 - 7.5 E9/L [facility] HemeAutoSS HEMATOLOGYOrdered By: Katerin Velazquez on 02-01-2023 [...] [Vol rate/Area] 80 mL/min/1.73 m2 Normal >=59 [facility] Comment on above: Order Comment: Order added by Discern Expert. Result Comment: Dermatopathologist gail kidney disease could be indicated at eGFR's of less than 60 mL/min/1.73m2. Kidney failure is indicated at less than 15 mL/min/1.73m2. Performed By: #### 2 862177, 6937674, 8870432, 80138844, 9029094 ####[facility] [address] [place] [address] XR Abdomen 1 Viewon 01-07-20 23 XR [...] (Electronic Signature): 01/06/2023 2:12 pm Signed by: Nkiolas Villavicencio M.D. Transcribed by: DEBBIE Technologist: LEWIS Technical Comments Radiation Dose: Ka,r in mGy = na DAP = na Normal [facility] Consent for Treatmenton 12-24 Consent for Treatment [id number]#1.00CD:127 Normal [facility] Outside Colonoscopyon 2022 Outside Colonoscopy [id number]#2.00CD:127 Normal [facility] CT Abdomen/Pelvis w/contrast (enterography)on 12-09-2022 CT Abdomen/Pelvis [...] Herber Davis MD Transcribed by: DEBBIE Technologist: RRB Technical Comments GFR (mL/min/1/73m2) na Contrast: Isovue 300 Contrast amount in ml's: 100 Rectal Contrast Given? No Oral contrast amount in ml's: 1450 Normal [facility] Consent for Treatmenton 11-24 Consent for Treatment [id number]#1.00CD:127 Normal [facility] Gastroenterology Office/Clin ic Noteon 11-29-2022 Gastroenterology Office/Clinic [...] Olga Holt to record this visit. DELVIN utilization review specialist and provider reviewed before signing. DELVIN: [...] Abuse - Demetri (more content not included)... [facility] Comment on above: Result Comment: Elec tronically Signed By: Jesse Bray\.br\Date and Time Signed: 11/24/22 16:24 EDT\.br\Electronically Co-Signed By: Ignacia KHAN MD\.br\Date and Time Co-Signed: 11/29/22 21:07 EDT Consent for Procedure/Surger yon 11-28-2022 Consent for Procedure/Surgery [id number]#1.00CD:[address] [facility] Pre-Certification Formon Pre-Certification Form [id number]#1.00CD:[address] [facility] Ambulatory Visit Summaryon 0 11-24-2022 Ambulatory [...] FELIX, Jose Palafox Where: [facility] Invalid Interpretation Code Abdominal pain, Print Label By Order Location\.br\ CBC w/ Auto Diff, Blood, Routine collect, 11/24/22, Order for future visit, Lab Collect, Crohn's disease, small intestine [facility] 36on 11-23-2022 36 Please let her know her ECHO was normal. I updated my note with clearance for her upcoming surgery. Please send to surgeons office. She should follow-up with an attending in 3 months or sooner if needed. Thanks [facility] Telephoneon 11-23-2022 Telephone [phone] Stacey Sahu Lisa 1975 F Date Provider Department Center 11/23/2022 CAN KAPLAN [facility] Family History Problem Relation Age of Onset Coronary artery disease Father Family Status - Relation Status Age at Father [facility] ECHOCARDIO M/2D COMPLETEon 0 11-22-2022 ECHOCARDIO M/2D COMPLETE Patient: STACEY SAHU. Exam Date: 11/22/2022 : 1975 Gender:F Ordering : CAN [facility] Admission #: [id number] Family : Order #: [id number] CLICK HERE TO VIEW EXAM ECHOCARDIOGRAM REPORT [...] Moran M.D. on 11/22/2022 at 17:44 Normal [facility] Ambulatory Visit Summaryon 0 11-08-2022 Ambulatory Visit Summary STACEY SAHU :1975 Visit Date:11/08/2022 Ambulatory Visit Instructions Your Diagnosis Gross hematuria Kidney stones Nocturia Tests Performed Urnls Dip Stick Auto w/o Microscopy POC 82290 XR Abdomen 1 View -- Results Pending [...] PM EDT With: Ignacia KHAN MD Where: [facility] Normal [address] [place] [address] [place] [address]- \.br\ You Need to Schedule the Following Appointments\.br\ Follow Up with LESLIE JUNG PA-C, URL When: In 6 months 05/11/2023 EST\.br\ Comments:\.br\ KUB\.br\ Where:\.br\ [address]\.br\ [place] [address]\.br\ [phone]\.br\ Medications\.br\ What How Much When Instructions\.br\ Unchanged naproxen (Aleve) Every 12 hours Contact prescribing physician if questions or concerns \.br\ Unchanged omeprazole (Prilosec) Every day Contact prescribing physician if questions or concerns \.br\ Test Results\.br\ Urnls Dip Stick Auto w/o Microscopy POC 90132 (11/08/2022)\.br\ Bilirubin Urine Dipstick - Negative\.br\ Blood Urine Dipstick - 3+ Large\.br\ Glucose Urine Dipstick - Negative\.br\ Ketones Urine Dipstick - Negative\.br\ Leukocytes Urine Dipstick - Negative\.br\ Nitrite Urine Dipstick - Negative\.br\ Protein Urine Dipstick - Negative\.br\ Specific [place] Urine Dipstick - 1.020\.br\ Urine Appearance Urine [...] instructions at home:\.br\ Medicines\.br\ ? \.br\ Take soyq-cve-mkuukot and prescription medicines only as told by [...] blood stops without treatment.\.br\ ? \.br\ Take byuy-eoz-tcubluy and prescription medicines only as told by your health care provider.\.br\ ? \.br\ Drink enough fluid to keep your urine pale yellow.\.br\ This information is not intended to replace advice given to you by your health care provider. Make sure you discuss any questions you have with your health care provider.\.br\ Document Revised: 02/10/2021 Document Reviewed: 02/10/2021 [employer] Patient Education ? 2022 [employer].br\ \.br\ [facility] Office Visiton 11-08-2022 Follow-up visit [id number] Stacey Sahu 1975 F Date Provider Department Center 11/08/2022 CAN [facility] Family History Problem Relation Age of Onset Coronary artery disease Father Family Status - Relation Status Age at Father Level of Service:[address] [place] OFFICE/OUTPATIENT NEW MODERATE MDM 45-59 MINUTES Reason for Visit and Comments: Re-establish care [Other] Pulmonary Hypertension [818] Normal [facility] Patient Educationon 11-09-19 Patient Education Urology Hematuria, [...] these instructions at home: Medicines ? Take kgkd-pel-emjukuh and prescription medicines only as told by [...] the blood stops without treatment. ? Take frrg-bgn-ltagrht and prescription medicines only as told by your health care provider. ? Drink enough fluid to keep your urine pale yellow. This information is not intended to replace advice given to you by your health care provider. Make sure you discuss any questions you have with your health care provider. Document Revised: 02/10/2021 Document Reviewed: 02/10/2021 [employer] Patient Education ? 2022 [employer]. Normal [facility] Urology Office/Clinic Noteon 11-08-2022 Urology Office/Clinic [...] In 6 months 05/11/2023 EST [address] [place] [address] [phone] Additional Instructions: KUB Patient Education Hematuria, Adult [...] Protein Urine Dipstick: Negative (11/08/22 13:00:00) Specific [place] Urine Dipstick: 1.020 (11/08/22 13:00:00) Urine Appearance Urine Dipstick: Clear (11/08/22 13:00:00) Urine Color Urine Dipstick: Yellow (11/08/22 13:00:00) Urobilinogen Urine Dipstick: Normal 0.2-1 EU/dl (11/08/22 13:00:00) pH Urine Dipstick: 6 (11/08/22 13:00:00) Diagnostic Results Tests Reviewed: Reviewed UA, KUB [facility] Comment on above: Result Comment: Elec tronically Signed By: LESLIE JUNG PA-C\.br\Date and Time Signed: 11/08/22 13:46 EDT\.br\Electronically Co-Signed By: Moni Gonzáles MA\.br\Date and Time Co-Signed: 11/08/22 13:26 EDT RAD - MISCon 10-28-2022 RAD - MISC [id number]#1.00CD:127 Normal [facility] US THYROID FN ASP BXon 10-28 US THYROID FN ASP BX Begin Addendum #1 COLLECTED DATE/TIME: 10/18/2022 13:19 EDT Final Diagnosis Report for [facility] [place] (A/B) SOFT TISSUE MASS CEPHALAD TO THYROID; FINE NEEDLE ASPIRATION: -ATYPIA OF UNDETERMINED SIGNIFICANCE. -CYST CONTENT. NOTE: Sparsely cellular aspirate compromised of follicular cells with architectural atypia. Molecular testing or a repeat aspirate may be helpful if clinically indicated. The final diagnosis is based on a microscopic exam of vaccine customer representative sections. 10/25/[address] Caceres. [...] (FNA). 2. Pathology results are pending. Normal [facility] XR KUB 1 VIEWon 10-27-2022 XR [...] by: PAULETTE GALVAN Date: 2022-10-27 07:19 Normal [facility] Provider Letteron 10-06-2022 Provider Letter October 06, 2022 STACEY [address] [place] [address] STACEY SAHU 1975 Dear Stacey , We [...] this matter. Sincerely, [facility] [address] [facility], [place] [address] Normal [facility] CT NECK ST W CONon 3 CT [...] by: PREET RODRIGEZ Date: 2022-10-05 08:22 Normal [facility] Physician Referralon 023 Physician Referral [id number]#1.00CD:127 Normal [facility] CARDIAC DENZEL ADMITon 023 CK [Catalytic activity/Vol] 149 U/L Normal 26-192 [facility] Comment on above: Performed By: #### C MADM, LIPA, CMP ####[facility] [address] [place] [id number] Iverson CK.MB [Mass/Vol] 1.51 ng/mL Normal <=3.60 [facility] Comment on above: Performed By: #### C MADM, LIPA, CMP ####[facility] [address] [place], [place] [address]IzDr. Nita Iverson HSTROP 4.1 pg/mL Normal 4.0-51.3 [facility] Comment on above: Result Comment: CUT- OFF POINTS HAVE BEEN ESTABLISHED BASED ON THE FOURTH UNIVERSAL DEFINITIONS OF MYOCARDIAL INFARCTION. THE UPPER REFERENCE LIMIT (URL) OF TROPONIN, DEFINED THE 99TH PERCENTILE OF cTnI DISTRIBUTION IN A REFERENCE POPULATION, HAS BEEN CONFIRMED THE DECISION THRESHOLD FOR [place] DIAGNOSIS. Performed By: #### C SHIVANI DENSON, CMP ####[facility] [address] [place] [address]Dr. Nita Iverson ARIES 47 ng/mL Normal 9-82 [facility] Comment on above: Performed By: #### C SHIVANI DENSON, CMP ####[facility] [address] [place] [address]Dr. Nita Iverson CBC AUTO DIFFon 09-21-2022 BASO # 0.1 103/ul Normal 0.0-0.1 [facility] Comment on above: Performed By: #### C BC #### [facility] [address] [place] [address] [address] Nita Iverson Basophils/100 WBC (Bld) 0.8 % Normal 0.2-2.0 [facility] Comment on above: Performed By: #### C BC #### [facility] [address] [place] [address] Dr. Nita Iverson EO # 0.7 103/ul Normal 0.0-0.7 [facility] Comment on above: Performed By: #### C BC #### [facility] [address] [address] [address] Nita Iverson Eosinophils/100 WBC (Bld) 7.1 % Critically high 0.9-7.0 [facility] Comment on above: Performed By: #### C BC #### [facility] [address] [place] [address] Dr. Nita Iverson Erythrocyte distribution width (RBC) [Ratio] 12.3 % Normal 11.0-15.0 [facility] Comment on above: Performed By: #### C BC #### [facility] [address] [place] [address] Dr. Nita Iverson Hematocrit (Bld) [Volume fraction] 40.1 % Normal 36.0-48.0 [facility] Comment on above: Performed By: #### C BC #### [facility] [address] [place] [address] Dr. Nita Iverson Hemoglobin (Bld) [Mass/Vol] 13.6 g/dL Normal 12.0-16.0 [facility] Comment on above: Performed By: #### C BC #### [facility] [address] [place] [address] Dr. Nita Iverson IG # 0.02 10e3/ul Normal 0.00-0.03 [facility] Comment on above: Performed By: #### C BC #### [facility] [address] [place] [address] Dr. Nita Iverson IG % 0.2 % Normal 0.0-0.5 [facility] Comment on above: Performed By: #### C BC #### [facility] [address] [place] [address] Dr. Nita Iverson LYMPH # 3.0 103/ul Normal 1.2-3.8 [facility] Comment on above: Performed By: #### C BC #### [facility] [address] [place] [address] Dr. Nita Iverson Lymphocytes/100 WBC (Bld) 30.2 % Normal 20.5-60.0 [facility] Comment on above: Performed By: #### C BC #### [facility] [address] [place] [address] Dr. Nita Iverson MANUAL DIFF REQ NO Normal [facility] Comment on above: Performed By: #### C BC #### [facility] [address] [place] [address] Dr. Nita Iverson MCH (RBC) [Entitic mass] 30.0 pg Normal 26.7-34.0 [facility] Comment on above: Performed By: #### C BC #### [facility] [address] [place] [address] Dr. Nita Iverson MCHC (RBC) [Mass/Vol] 33.9 g/dL Normal 29.9-35.2 [facility] Comment on above: Performed By: #### C BC #### [facility] [address] [place] [address] Dr. Nita Iverson MCV (RBC) [Entitic vol] 88.3 fL Normal 81.0-99.0 [facility] Comment on above: Performed By: #### C BC #### [facility] [address] [place] [address] Dr. Nita Iverson MONO # 0.8 103/ul Normal 0.3-0.8 [facility] Comment on above: Performed By: #### C BC #### [facility] [address] [place] [address] Dr. Nita Iverson Monocytes/100 WBC (Bld) 7.8 % Normal 1.7-12.0 [facility] Comment on above: Performed By: #### C BC #### [facility] [address] [place] [address] Dr. Nita Iverson NEUT # 5.4 103/ul Normal 1.4-6.5 [facility] Comment on above: Performed By: #### C BC #### [facility] [address] [place] [address] Dr. Nita Iverson Neutrophils/100 WBC (Bld) 53.9 % Normal 43.0-75.0 [facility] Comment on above: Performed By: #### C BC #### [facility] [address] [place] [address] Dr. Nita Iverson Platelet mean volume (Bld) [Entitic vol] 10.4 fL Normal 9.5-13.5 [facility] Comment on above: Performed By: #### C BC #### [facility] [address] [place] [address] Dr. Nita Iverson PLT 270 103/ul Normal 150-450 [facility] Comment on above: Performed By: #### C BC #### [facility] [address] [place] [address] Dr. Nita Iverson RBC 4.54 106/ul Normal 4.20-5.40 [facility] Comment on above: Performed By: #### C BC #### [facility] [address] [place], [place] [address] Dr. Nita Iverson WBC 10.0 103/ul Normal 4.0-11.0 [facility] Comment on above: Performed By: #### C BC #### [facility] [address] [place], [place] [address] ABD/PELV W CONon [...] MISTY SPEARS Date: 2022-09-21 21:41 Normal [facility] ER URINE PROFILEon 3 Bilirubin Ql (U) Negative Normal NEGATIVE [facility] Comment on above: Performed By: #### U MICRO, ERUR, PREGU ####[facility] [address] [place] [address]Dr. Nita Iverson Clarity (U) CLEAR Normal CLEAR [facility] Comment on above: Performed By: #### U MICRO, ERUR, PREGU ####[facility] [address] [place] [address]Dr. Yilan Iverson Color (U) LT. YELLOW Normal YELLOW [facility] Comment on above: Performed By: #### U MICRO, ERUR, PREGU ####[facility] [address] [place] [address]Dr. Nita Iverson ERUAHD A micrscopic examination will be performed if indicated. Normal [facility] Comment on above: Performed By: #### U MICRO, ERUR, PREGU ####[facility] [address] [place] [address]Dr. Yilan Iverson Glucose Ql (U) Negative Normal NEGATIVE [facility] Comment on above: Performed By: #### U MICRO, ERUR, PREGU ####[facility] [address] [place] [address]Dr. Jannielan Iverson Hemoglobin Ql (U) LARGE Abnormal NEGATIVE The [facility] Comment on above: Performed By: #### U MICRO, ERUR, PREGU ####[facility] [address] [place] [address]Dr. Yilan Iverson Ketones Ql (U) Negative Normal NEGATIVE [facility] Comment on above: Performed By: #### U MICRO, ERUR, PREGU ####[facility] [address] [place] [address]Dr. Yilan Iverson LEUKOCYTES Negative Normal NEGATIVE [facility] Comment on above: Performed By: #### U MICRO, ERUR, PREGU ####[facility] [address] [place] [address]Dr. Yilan Iverson Nitrite Ql (U) Negative Normal NEGATIVE [facility] Comment on above: Performed By: #### U MICRO, ERUR, PREGU ####[facility] [address] [place] [address]Dr. Nita Iverson pH (U) 6.5 [pH] Normal 5-9 [facility] Comment on above: Performed By: #### U MICRO, ERUR, PREGU ####[facility] [address] [place] [address]Dr. Nita Iverson SPEC GRAVITY 1.020 Normal 1.005-<=1.025 [facility] Comment on above: Performed By: #### U MICRO, ERUR, PREGU ####[facility] [address] [place], [place] [address]Dr. Nita Iverson UA PROTEIN Negative Normal NEGATIVE/ TRACE [facility] Comment on above: Performed By: #### U MICRO, ERUR, PREGU ####[facility] [address] [place], [place] [address]Dr. Nita Iverson UR MICRO IND INDICATED Normal [facility] Comment on above: Performed By: #### U MICRO, ERUR, PREGU ####[facility] [address] [place], [place] [address]Dr. Nita Iverson Urobilinogen Qn (U) 1.0 {Senait'U}/dL Normal 0.2 - 1. 0 [facility] Comment on above: Performed By: #### U MICRO, ERUR, PREGU ####[facility] [address] [place], [place] [address]Dr. Nita Iverson LIPASEon 09-21-2022 Lipase [Catalytic activity/Vol] 89.0 U/L Normal 73.0-393.0 [facility] Comment on above: Performed By: #### C MADM, LIPA, CMP ####[facility] [address] [place] [address]Dr. Nita Iverson URon 09-21-2022 , QUAL Negative Normal NEGATIVE [facility] Comment on above: Performed By: #### U MICRO, ERUR, PREGU ####[facility] [address] [place] [address]Dr. Nita Iverson PROF 14(COMP METB)on 023 Albumin [Mass/Vol] 3.5 g/dL Normal 3.4-5.0 [facility] Comment on above: Performed By: #### C MADM, LIPA, CMP #### [facility] [address] [place] [address] [address] Nita Iverson Albumin/Globulin [Mass ratio] 1.0 {ratio} Normal [facility] Comment on above: Performed By: #### C MADM, LIPA, CMP #### [facility] [address] [place] [address] [address] Nita Iverson ALP [Catalytic activity/Vol] 67 U/L Normal 46-116 [facility] Comment on above: Performed By: #### C MADM, LIPA, CMP #### [facility] [address] [place] [address] [address] Nita Iverson ALT [Catalytic activity/Vol] 30 U/L Normal 14-59 [facility] Comment on above: Performed By: #### C MADM, LIPA, CMP #### [facility] [address] [place] [address] [address] Nita Iverson Anion gap [Moles/Vol] 11.8 mmol/L Normal [facility] Comment on above: Performed By: #### C MADM, LIPA, CMP #### [facility] [address] [place] [address] [address] Nita Iverson AST [Catalytic activity/Vol] 25 U/L Normal 15-37 [facility] Comment on above: Performed By: #### C MADM, LIPA, CMP #### [facility] [address] [place] [address] [address] Nita Iverson Bilirubin [Mass/Vol] 0.3 mg/dL Normal 0.2-1.0 [facility] Comment on above: Performed By: #### C MADM, LIPA, CMP #### [facility] [address] [place] [address] [address] Nita Iverson Calcium [Mass/Vol] 9.2 mg/dL Normal 8.5-10.1 [facility] Comment on above: Performed By: #### C SHIVANI DENSON, CMP #### [facility] [address] [place] [address] [address] Nita Iverson Chloride [Moles/Vol] 106 mmol/L Normal 98-107 [facility] Comment on above: Performed By: #### C JANETH DENSONA, CMP #### [facility] [address] [place] [address] [address] Nita Iverson CO2 [Moles/Vol] 28.7 mmol/L Normal 21.0-32.0 [facility] Comment on above: Performed By: #### C SHIVANI DENSON, CMP #### [facility] [address] [place] [address] Dr. Nita Iverson Creatinine [Mass/Vol] 0.81 mg/dL Normal 0.55-1.02 [facility] Comment on above: Performed By: #### C JANETH DENSONA, CMP #### [facility] [address] [place] [address] Dr. Nita Iverson EGFR-AF AFGHAN >60 Normal >=60 [facility] Comment on above: Performed By: #### C SHIVANI DENSON, CMP #### [facility] [address] [place] [address] Dr. Nita Iverson EGFR-NON AF AFGHAN >60 Normal >=60 [facility] Comment on above: Performed By: #### C JANETH DENSONA, CMP #### [facility] [address] [place] [address] Dr. Nita Iverson Globulin (S) [Mass/Vol] 3.5 g/dL Normal [facility] Comment on above: Performed By: #### C JANETH DENSONA, CMP #### [facility] [address] [place] [address] Dr. Nita Iverson Glucose [Mass/Vol] 106 mg/dL Normal 74-106 [facility] Comment on above: Performed By: #### C JANETH DENSONA, CMP #### [facility] [address] [place] [address] [address] Nita Iverson Potassium [Moles/Vol] 4.5 mmol/L Normal 3.5-5.1 [facility] Comment on above: Performed By: #### C JANETH DENSONA, CMP #### [facility] [address] [place] [address] [address] Nita Iverson Protein [Mass/Vol] 7.0 g/dL Normal 6.4-8.2 [facility] Comment on above: Performed By: #### C JARETT LIPA, CMP #### [facility] [address] [place] [address] [address] Nita Iverson Sodium [Moles/Vol] 142 mmol/L Normal 136-145 [facility] Comment on above: Performed By: #### C JARETT LIPA, CMP #### [facility] [address] [place] [address] [address] Nita Iverson Urea nitrogen [Mass/Vol] 12.0 mg/dL Normal 7.0-18.0 [facility] Comment on above: Performed By: #### C JANETH DENSONA, CMP #### [facility] [address] [address] [address] Nita Iverson Urea nitrogen/Creatinine [Mass ratio] 14.8 mg/mg Normal [facility] Comment on above: Performed By: #### C JARETT LIPA, CMP #### [facility] [address] [address] [address] Nita Iverson URINE MICROSCOPIC ONLYon BACTERIA NONE SEEN Normal NONE SEEN [facility] Comment on above: Performed By: #### U MICRO, ERUR, PREGU ####[facility] [address] [place] [address]Dr. Nita Iverson Bacteria identified Cx Nom (U) NOT INDICATED Normal [facility] Comment on above: Performed By: #### U MICRO, ERUR, PREGU ####[facility] [address] [place] [address]Dr. Nita Iverson CAST NONE SEEN Normal NONE SEEN [facility] Comment on above: Performed By: #### U MICRO, ERUR, PREGU ####[facility] [address] [place] [id number]. Nita Iverson Crystals LM Nom (Urine sed) NONE SEEN Normal NONE SEEN [facility] Comment on above: Performed By: #### U MICRO, ERUR, PREGU ####[facility] [address] [place] [address]Dr. Nita Iverson Epithelial cells LM Ql (Urine sed) RARE Normal NONE SEEN /RARE [facility] Comment on above: Performed By: #### U MICRO, ERUR, PREGU ####[facility] [address] [place] [address]Dr. Nita Iverson MUCOUS NONE SEEN Normal NONE SEEN [facility] Comment on above: Performed By: #### U MICRO, ERUR, PREGU ####[facility] [address] [place] [address]Dr. Nita Iverson RBC 20-50 Abnormal 0-2 [facility] Comment on above: Performed By: #### U MICRO, ERUR, PREGU ####[facility] [address] [place] [address]Dr. Nita Iverson WBC 2-5 Abnormal NONE SEEN [facility] Comment on above: Performed By: #### U MICRO, ERUR, PREGU ####[facility] [address] [place] [id number]. Nita Iverson US THYROIDon 09-06-2022 US THYROID [...] by: PREET RODRIGEZ Date: 2022-09-06 20:19 Normal [facility] MRI HIP RT WO CONon 08-19-19 MRI HIP RT WO CON EXAM: MRI HIP RT WO CON HISTORY: Right hip pain COMPARISON: X-rays 07/07/2022 TECHNIQUE: Axial and coronal large fujgp-os-yhzn sequencing through the pelvis and both hips. Small icyfd-zj-thqo coronal, sagittal and axial sequencing through the [...] at approximately the 11:00 position (coronal small ojavn-yi-mnea 14). The remainder of the labrum exhibits no gross irregularity. The left acetabulum is normal. The bilateral femoral head and acetabular cartilage exhibits no chondral or osteochondral irregularity. The pubic symphysis and sacroiliac joints are normal. Thickening and interstitial edema of the right gluteus medius tendon insertion to the greater trochanter (coronal small gkokq-il-avbc 13 and axial large qcpwu-px-dnvt 23). Mild amount of adjacent edema. No abnormal bursal fluid collection. Questionable mild thickening and interstitial edema of the left gluteus minimus tendon (coronal large cousd-li-tbxh 17 and axial large wptqa-do-oitz 23 and to a lesser degree the gluteus medius tendon (coronal large irzwx-us-ahtx 21). No tendon tear, tendon tear or [...] by: PAULETTE PHIPPS Date: 2022-08-18 22:39 Normal [facility] PAP ACOG PANEL 2: 30 to 65on 08-11-2022 . . Normal [facility] Comment on above: Result Comment: Perf ormed at: WB Performed By: #### [id number] ####[facility] [address] [place] [address]Dr. Nita Iverson Age Gdln ACOG Testing 30-65 Normal [facility] Comment on above: Performed By: #### [id number] ####[facility] [address] [place] [address]Dr. Nita Iverson DIAGNOSIS: Comment Normal [facility] Comment on above: Result Comment: NEGA TIVE FOR INTRAEPITHELIAL LESION OR MALIGNANCY. Performed at: WB Performed By: #### [id number] ####[facility] [address] [place] [address]Dr. Nita Iverson HPV Aptima Negative Normal Negative [facility] Comment on above: Result Comment: This nucleic acid amplification test detects fourteen high-risk HPV types (16,18,31,33,35,39,45,51,52,56,58,59,66,68) without differentiation. Performed at: =G Performed By: #### [id number] ####[facility] [address] [place] [address]Dr. Nita Iverson HPV Genotype Reflex Comment Normal [facility] Comment on above: Result Comment: Crit eria not met, HPV Genotype not performed. Performed at: WB Performed By: #### 4 [id number] ####[facility] [address] [place], [place] [address]Dr. Nita Iverson Methodology: Comment Normal [facility] Comment on above: Result Comment: This liquid based ThinPrep(R) pap test was screened with the use of an image guided system. Performed at: WB Performed By: #### [id number] ####[facility] [address] [place], [place] [address]DrMaribel Iverson Note: Comment Normal [facility] Comment on above: Result Comment: The Pap smear is a screening test designed to aid in the detection of premalignant and malignant conditions of the uterine cervix. It is not a diagnostic procedure and should not be used as the sole means of detecting cervical cancer. Both false-positive and false-negative reports do occur. . Performed at: WB Performed By: #### [id number] ####[facility] [address] [place], [place] [address]DrMaribel Iverson Performed by: Comment Normal [facility] Comment on above: Result Comment: Jordana Pruett, Foam Rubber Molder (ASCP) Performed at: WB Performed By: #### [id number] ####[facility] [address] [place], [place] [address]DrMaribel Iverson Specimen adequacy: Comment Normal [facility] Comment on above: Result Comment: Sati sfactory for evaluation. No endocervical component is identified. Performed at: WB Performed By: #### [id number] ####[facility] [address] [place], [place] [address]DrMaribel Iverson US PELVIS AND TRANSVAGon US PELVIS [...] by: PAULETTE GALVAN Date: 2022-06-06 17:51 Normal [facility] CT ABD/PELV WO W CONon 04-25 [...] by: PREET RODRIGEZ Date: 2022-04-25 08:09 Normal [facility] NM RENAL W_WO PHARMon 2021 NM [...] by: PAULETTE GALVAN Date: 2022-03-22 17:23 Normal [facility] XR KUB 1 VIEWon 03-22-2022 XR [...] PAULETTE GALVAN Date: 2022-03-22 17:57 Normal [facility] US THYROIDon 03-09-2022 US THYROID EXAMINATION: US [...] IMPRESSION: Multinodular goiter, grossly stable TI-RADS: The [employer] TI-RADS committee's white paper recommendations for thyroid lesions classified as TR4 (moderately suspicious) are listed below: > 1.0 cm. Follow-up ultrasound in 1, 2, 3, and 5 years. > 1.5 cm. FNA. J. Am Rosendo Radiol 2017;14:587-595. Electronically authenticated by: PAULETTE GALVAN Date: 2022-03-09 07:07 [address] [facility] [address] ABD/PELV WO W CONon 03-07 [...] by: PREET RODRIGEZ Date: 2022-03-07 16:45 Normal [facility] CNOVon 02-21-2022 [facility] Office Visit (SILVERIO) -------- HENRYSTACEY ([id number]) 1975 F Date Time Provider Department 02/21/22 1:00 PM SHIRAZ BO During your visit today, we recorded the following information about you: Pulse Blood pressure Weight 76/minute 138/85 88.8 kg Shiraz Bo DO 03/13/2022 1:15 PM Signed [facility] - Medical Spine Initial [...] gel - no benefit Therapies PT at [facility] in [place] in June 2021 - 2 times per week for 1 month, exercises, TENS, ice - no relief Ice/heat Prior spine/MSK interventions: -12/31/21 Dr. Muoñz: R GTB CSI - minimal relief for 1 day. 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 Normal [facility] MG MAMM SCREEN 3D GRACIE CADon 02-09-2022 MG MAMM SCREEN 3D GRACIE CAD Patient: STACEY SAHU Exam Date: 02/09/2022 : 1975 Gender:F Ordering : [facility] Admission #: [id number] Family : Order #: [id number] CLICK HERE TO VIEW EXAM RADIOLOGY REPORT [...] colon cancer at age 56. LOCATION: [facility] BREAST COMPOSITION: Scattered areas fibroglandular density. FINDINGS: [...] M.D. on 02/09/2022 at 14:53 Normal [facility] Covid-19 PCR ([facility])on SARS-CoV-2 (COVID-19) RNA IZAIAH+probe Ql (Unsp spec) Detected Critically abnormal NOT DETECTED [facility] Comment on above: Result Comment: This test is not yet approved or cleared by the [place] FDA. When there are no FDA-approved or cleared tests available, and other criteria are met, FDA can make tests available under an emergency access mechanism called an Emergency Use Authorization (EUA). The EUA for this test is supported by the [employer] Tender of Health and Human Service's declaration that [...] longer be used). Performed By: #### C TB #### [facility] [address] [place] [address] Dr. Nita Figueroa 01-17-2022 CNOV Office Visit (LOORRM) -------- STACEY SAHU ([id number]) 1975 F Date Time Provider Department 01/17/22 3:30 PM BREEZY MUÑOZ During your visit today, we recorded the following information about you: Breezy Muñoz DO 01/17/2022 3:48 PM Signed SERVICE DATE: January 17, 2022 PCP: Essie Ryan, TRANSIT MECHANIC, TRANSIT MECHANIC Patient was self-referred. Subjective Patient ID: Stacey [...] x 4 Crohn's disease without complication (HCC) [id number] Pulmonary Htn (Hcc) Obese Nirmala (Obstructive Sleep [...] (primary encounter diagnosis) Plan: CONSULT TO SPINE [facility] (M51.27) Lumbago-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 Plan: CONSULT TO SPINE [facility] Office Visit on 01/17/22 - [...] TO S (more content not included)... Normal [facility] CNOVon 12-31-2021 CNOV Office Visit (LOORRM) -------- SAHUSTACEY COLLINS ([id number]) 1975 F Date Time Provider Department 12/31/21 1:00 PM BREEZY MUÑOZ During your visit today, we recorded the following information about you: Breezy Muñoz DO 12/31/2021 1:10 PM Signed SERVICE DATE: December 31, 2021 PCP: Essie Ryan, NIURKA, TRANSIT MECHANIC Patient was self-referred. Subjective Patient ID: Stacey [...] x 4 Crohn's disease without complication (HCC) [id number] Pulmonary Htn (Hcc) Obese Nirmala (Obstructive Sleep [...] Care Vi (more content not included)... Normal [facility] MR femur RT wo/w conon 12-04 MR femur RT wo/w con [facility] [place] [address] MRI Report Signed Patient: Stacey Sahu MR#: [id number] : 1975 Acct:[id number] Age/Sex: 46 / F ADM Date: 12/03/21 Loc: MR Room: Type: [facility] Attending Dr: Alexis Saenz II, MD Ordering [...] Stock Jr., M.D.12/04/2021 3:45 PM Dictation Location: [place] [address] Transcribed By: [facility] 12/04/21 1545 Dictated By: Breezy Stock Jr, MD 12/04/21 1519 Signed By: 12/04/21 1542 Normal [facility] XR femur RT 2V*on 11-17-2021 XR femur RT 2V* [facility] [place] [address] XRay Report Signed Patient: Stacey Sahu MR#: [id number] : 1975 Acct:[id number] Age/Sex: 46 / F ADM Date: 11/17/21 Loc: [facility] Room: Type: [facility] Attending Dr: Alexis Saenz II, MD Ordering Provider: Alexis Saenz MD Date of Service: 11/17/21 XR/XR hip RT min 2V(w/wo pelvis)*: Right hip pain ([id number]) XR/XR femur RT 2V*: Right hip pain [...] Vipin Iniguez M.D.11/17/2021 3:56 PM Dictation Location: [place] [address] Transcribed By: [facility] 11/17/211555 Dictated By: Vipin Iniguez DO 11/17/21 155 Signed By: 11/17/21 155 [facility] Large Joint Arthro/Inj: R gr eater trochanteric bursa [facility] Social History Date Type Detail Facility Start: 08-06-2020 End: 06-28-2023 Sex Assigned At [facility] Other Start: 08-06-2020 End: 06-28-2023 History of Social function [facility] Start: 01-07-2022 End: 02-21-2022 Exposure to SARS-CoV-2 (event) Not sure [facility] Start: 12-15-2020 End: 09-12-2023 Alcohol intake Current non-drinker of alcohol (finding) [facility] Start: 07-27-2016 End: 04-12-2023 Tobacco smoking status NHIS Never smoked tobacco [facility] Start: 07-27-2016 End: 04-12-2023 Tobacco use and exposure Smokeless tobacco non-user [facility] Start: 1975 Sex Assigned At Not on file [facility] Tobacco Past [facility] Comment on above: stopped 12 years ago stopped 12 years ago Tobacco smoking status No Smoking Status Entered [facility] Tobacco smoking status Never [facility] Vital Signs Date Time Vital Sign Value Performing Clinician Facility 09-12-2023 07:42-0400 Diastolic blood pressure 103 mm[Hg] Imani Chan APRN-TRANSIT MECHANIC Work Phone: [facility] 09-12-2023 07:42-0400 Heart rate 95 /min Imani Chan APRN-TRANSIT MECHANIC Work Phone: [facility] 09-12-2023 07:42-0400 Respiratory rate 18 /min Imani Chan APRN-TRANSIT MECHANIC Work Phone: [facility] 09-12-2023 07:42-0400 SaO2% (BldA) [Mass fraction] 99 % Imani Chan EMAIL MARKETING COORDINATOR-TRANSIT MECHANIC Work Phone: [facility] 09-12-2023 07:42-0400 Systolic blood pressure 136 mm[Hg] Imani Chan EMAIL MARKETING COORDINATOR-TRANSIT MECHANIC Work Phone: [facility] 06-28-2023 10:34-0500 Body height 149.9 cm Evans Verhoff PA-C Work Phone: [facility] 06-28-2023 10:34-0500 Body mass index (BMI) [Ratio] 38.78 kg/m2 Evans Verhoff PA-C Work Phone: [facility] 06-28-2023 10:34-0500 Body weight 87.09 kg Evans Verhoff PA-C Work Phone: [facility] 06-28-2023 10:34-0500 Diastolic blood pressure 107 mm[Hg] Evans Verhoff PA-C Work Phone: [facility] 06-28-2023 10:34-0500 Heart rate 93 /min Evans Verhoff PA-C Work Phone: [facility] 06-28-2023 10:34-0500 SaO2% (BldA) [Mass fraction] 97 % Evans Verhoff PA-C Work Phone: [facility] 06-28-2023 10:34-0500 Systolic blood pressure 139 mm[Hg] Evans Verhoff PA-C Work Phone: [facility] 05-29-2023 14:39-0500 Blood Pressure Location Jose GARCIA [facility] 05-29-2023 14:39-0500 Diastolic blood pressure 83 mm[Hg] Jose GARCIA [facility] 05-29-2023 14:39-0500 Heart rate 88 /min Jose GARCIA [facility] 05-29-2023 14:39-0500 Respiratory rate 16 /min Jose GARCIA [facility] 05-29-2023 14:39-0500 Systolic blood pressure 131 mm[Hg] Jose GARCIA [facility] 11-24-2022 13:48-0400 Diastolic blood pressure 106 mm[Hg] Beth SALAM [facility] 11-24-2022 13:48-0400 Mean blood pressure 121 mm[Hg] Beth SALAM [facility] 11-24-2022 13:48-0400 Systolic blood pressure 152 mm[Hg] Beth SALAM [facility] 11-24-2022 13:46-0400 Blood Pressure Location Beth SALAM [facility] 11-24-2022 13:46-0400 Diastolic blood pressure 118 mm[Hg] Beth SALAM [facility] 11-24-2022 13:46-0400 Heart rate 80 /min Beth SALAM [facility] 11-24-2022 13:46-0400 Respiratory rate 16 /min Beth SALAM [facility] 11-24-2022 13:46-0400 Systolic blood pressure 161 mm[Hg] Beth SALAM [facility] 04-26-2022 12:03-0400 Blood Pressure Location Jose GARCIA [facility] 04-26-2022 12:03-0400 Diastolic blood pressure 95 mm[Hg] Jose GARCIA [facility] 04-26-2022 12:03-0400 Heart rate 102 /min Jose GARCIA [facility] 04-26-2022 12:03-0400 Systolic blood pressure 141 mm[Hg] Jose GARCIA [facility] 02-21-2022 12:39-0400 Body weight 88.81 kg Shiraz Sykesis DO Work Phone: [facility] 02-21-2022 12:39-0400 Diastolic blood pressure 85 mm[Hg] Shiraz Mendis DO Work Phone: [facility] 02-21-2022 12:39-0400 Heart rate 76 /min Shiraz Mendis DO Work Phone: [facility] 02-21-2022 12:39-0400 Systolic blood pressure 138 mm[Hg] Shiraz Mendis DO Work Phone: [facility] 12-09-2021 09:00-0400 Body height 160.02 cm Alexis Saenz II Other [facility] Other 12-09-2021 09:00-0400 Body mass index (BMI) [Ratio] 34.47 kg/m2 Alexis Houston II Other [employer] [facility] [employer] Other 12-09-2021 09:00-0400 Body weight 88.27 kg Alexis Houston II Other [employer] [facility] [employer] Other 11-17-2021 15:30-0400 Body height 160.02 cm Alexis Allenisle II Other [employer] [facility] [employer] Other 11-17-2021 15:30-0400 Body mass index (BMI) [Ratio] 32.41 kg/m2 Alexis Saenz II Other [employer] [facility] [employer] Other 11-17-2021 15:30-0400 Body weight 83.01 kg Alexis Saenz II Other [employer] Other Functional Status Date Assessment Result Facility 05-29-2023 Functional Status N/A [facility] 11-24-2022 Functional Status N/A [facility] 04-26-2022 Functional Status N/A [facility] Clinical Notes 12-14-2020 to 09-20-2023 Telephone Encounter - Nora Garza CNA - 09/20/2023 2:53 PM EDTTelephone Encounter - Nora Garza CNA - 09/20/2023 2:53 PM Samantha Chan APRN-TRANSIT MECHANIC - 09/12/2023 7:45 AM EDT Note Date & Type Note Facility 09-20-2023 Miscellaneous Notes [facility] Ortho called to say that they are out of network for [facility]'s insurance. A referral form will be sent once she selects an orthopedic in-network documented in this encounter [facility] 09-20-2023 Telephone encounter Note [facility] called to say that they are out of network for Stacey's insurance. A referral form will be sent once she selects an orthopedic in-network [facility] 09-12-2023 History of Presen t illness Narrative [facility] [address] [place] [address] Patient: Stacey Sahu Sex: female : 1975 Age: 48 y.o. PCP: ESSIE RYAN, EMAIL MARKETING COORDINATOR-TRANSIT MECHANIC 09/12/2023 Stacey Sahu is here for a(n) [...] patches min: NSAIDS, ice/heat, accupuncture, inj at [facility] Mod relief: Narcotics Sign: Steroid inj by Ortho) for the symptoms. The treatment provided moderate relief. The effect of pain on patient's ADLS: Moderate Impairment. Past Medical History: Diagnosis Date Arthritis Bipolar disorder ([facility]) Chronic pain disorder Crohn's colitis ([facility]) Depression GERD (gastroesophageal reflux disease) H/O methicillin resistant Staphylococcus aureus infection Hyperlipidemia Joint pain Pleurisy Pulmonary hypertension ([facility]) Pulmonary hypertension ([facility]) Sleep apnea cpap Past Surgical History: Procedure Laterality Date COLON SURGERY part of bowel removed d/t crohns dx HYSTERECTOMY 2017 INJECTION [place] LARGE JOINT Right Hip Right 09/01/2023 Performed by Pj Gannon MD at [place] [facility] INJECTION SPINE TRANSFORAMINAL Right L 5,1 Nroot Right 05/26/2023 Performed by Pj Gannon MD at [place] PA[facility] RELEASE DEQUERVAINS CONTRACTURE Right 10/17/2018 Performed by Dereck Bagley DO at [facility] SURGERY THYROIDECTOMY, PARTIAL Allergies Allergen Reactions Penicillins [...] while taking medications prescribed by this clinic. [facility] Orthopedic Referral - Right Hip [...] Dutton CNA 09/12/23 0828 ADELA Metz 09/12/23 0161 documented in this encounter [facility] 07-11-2023 Evaluation note Encounter Date Diagnosis [...] treatment plan. Patient left in stable condition [facility] Other 01-03-2024 History of Present illness Narrative* Evans Anderson PA-C - 06/28/2023 10:45 AM EST [facility] [address] [place] [address] Patient: Stacey Sahu Sex: female : 1975 Age: 48 y.o. PCP: ADELA SMITH 06/28/2023 Stacey Shau is here for a(n) post procedure follow [...] min: NSAIDS, ice /heat, accupuncture, inj at [facility] Mod relief: Narcotics Sign: Steroid inj by Ortho) for the symptoms. The treatment provided moderate relief. The effect of pain on patient's ADLS: Minimal Impairment. Past Medical History: Diagnosis Date Arthritis Bipolar disorder ([facility]) Chronic pain disorder Crohn's colitis ([facility]) Depression GERD (gastroesophageal reflux disease) H/O methicillin resistant Staphylococcus aureus infection Hyperlipidemia Joint pain Pleurisy Pulmonary hypertension ([facility]) Pulmonary hypertension ([facility]) Sleep apnea cpap Past Surgical History: Procedure Laterality Date COLON SURGERY part of bowel removed d/t crohns dx HYSTERECTOMY 2017 INJECTION SPINE TRANSFORAMINAL Right L 5,1 Nroot Right 05/26/2023 Performed by Pj Gannon MD at [place] RELEASE DEQUERVAINS CONTRACTURE Right 10/17/2018 Performed by Dereck Bagley DO at [facility] SURGERY THYROIDECTOMY, PARTIAL Allergies Allergen Reactions Penicillins [...] accurate and complete. Essie Dutton CNA 06/28/23 1209 Evans Anderson PA-C 06/28/23 1229 [facility] Hospital Discharge instructions Patient Education 05/29/2023 15:17:27 Kidney Stones, Xofh-wd-Qgaw Kidney Stones Kidney stones are rock-like masses [...] Follow these instructions at home: Medicines Take xzbp-dgi-ztvbjqm and prescription medicines only as told by [...] provider. Document Revised: 02/14/2022 Document Reviewed: 02/14/2022 [employer] Patient Education 2022 [employer]. Follow Up Care 11/08/2022 13:29:10 With:JOSE FELIX, Jose Palafox, URL Address: [facility] [address] [place] [address] [phone] When: Unknown Comments:4 mos w/ metabolic w/u [facility] 05-16-2023 NoteNew patient here to re-establish care. Needs cleared for thyroid surgery with Dr. Caceres. Was last seen by Dr. Blackwood in 2018 for pulmonary hypertension. Denies chest pain and SOB. Does feel palpitations 3-4 times a day. Review of Systems Cardiovascular: Positive for palpitations. All other systems reviewed and are negative.[facility] 11-08-2022 NoteCardiovascular Medicine [facility] SUBJECTIVE Chief Complaint Patient presents with [...] Final Atrial Rate 05/01/2017 90 BPM Final WA Interval 05/01/2017 122 ms Final QRS DURATION 05/01/2017 98 ms Final QT Interval 05/01/2017 374 ms Final QTC CALCULATION(BEZET) 05/01/2017 457 ms Final P [place] 05/01/2017 46 degrees Final R-[place] 05/01/2017 60 degrees Final T Wave [place] 05/01/2017 37 degrees Final Diagnosis 05/01/2017 Final [...] function (more content not included)... [facility]02-09-2023 NoteCONSULTATION CONSULTATION DATE: 08/04/2022 HISTORY [...] to her pain symptomatology. She did see Ortho, NAHEED Johnson and she ordered a CT of the [...] medications in three months, unless otherwise indicated.[id number] NotePROCEDURE: XR HIP RT 2 3V WO [...] Electronically authenticated by: PREET RODRIGEZ Date: 2022-07-07 15:33[facility]01-12-2023 NoteCONSULTATION CONSULTATION DATE: 07/07/2022 HISTORY OF [...] procedure, and she agrees to move forward.[facility] [id number] NoteCONSULTATION CONSULTATION DATE: 06/09/2022 HISTORY OF PRESENT [...] will re-evaluate with application of the diclofenac.[facility] 04-26-2022 Hospital Discharge instructions Patient Education 04/26/2022 [...] 06/12/2006 Document Revised: 03/01/2019 Document Reviewed: 05/12/2017 [employer] Patient Education 2020 [employer]. 04/26/2022 12:17:47 Hematuria, Adult Hematuria, Adult Hematuria [...] Follow these instructions at home: Medicines Take dtgn-ehj-yzuppyi and prescription medicines only as told by [...] or the blood stops without treatment. Take slcr-svc-hiivpiu and prescription medicines only as told by your health care provider. Drink enough fluid to keep your urine clear or pale yellow. This information is not intended to replace advice given to you by your health care provider. Make sure you discuss any questions you have with your health care provider. Document Released: 06/12/2006 Document Revised: 11/06/2019 Document Reviewed: 07/15/2017 [employer] Patient Education 2020 [employer] Follow Up Care 04/22/2022 08:39:58 With:JOSE FELIX, Jose Palafox, URL Address: [address] [place] [phone]- [phone] When:Within 6 Month(s) Comments:6 mo fu with MAGALYS [facility] 10-04-2022 NoteCONSULTATION PROCEDURE DATE: 03/29/2022 PREOPERATIVE DIAGNOSIS: [...] Will be followed up in the office.[id number] NoteCONSULTATION CONSULTATION DATE: 03/22/2022 CHIEF COMPLAINT: Right [...] up subsequent to that. CC: Essie Ryan [facility]09-13-2022 Hospital Discharge instructions Patient Education 03/08/2022 [...] With:Jose GARCIA Address: [facility] [address] [place] [facility] [place] [address] Business (1) When: Unknown Comments:Office will call to schedule follow up [facility]08-29-2022 NoteHNO ID: [id number] Author: Shiraz Bo, DO Service: ? Author Type: Physician Type: Progress Notes Filed: 03/13/2022 1:15 PM Note Text: [facility] [place] [facility] [place] [facility] - Medical Spine Initial [...] gel - no benefit Therapies PT at [facility] in [place] in June 2021 - 2 times per week for 1 month, exercises, TENS, ice - no relief Ice/heat Prior spine/MSK interventions: -12/31/21 Dr. Muñoz: R GTB CSI - minimal relief for 1 day. 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[place], [place] Litigation: No Workers' Compensation: No YELLOW [...] x 4 Crohn's disease without complication (HCC) [id number] Pulmonary Htn (Hcc) Obese Nirmala (Obstructive Sleep Apnea) Gerd (Gastroesophageal Reflux Disease) Crohn's Disease of Intestine (Hcc) Enterolith of Small Intestine (Hcc) Bipolar Disease, Chronic (Hcc) Other Hyperlipidemia PAST MEDICAL HISTORY Diagnosis Date Abnormal uterine bleeding s/p hysterectomy Bipolar disorder (HCC) Crohn's disease of intestine (HCC) s/p surgery GERD (gastroesophageal reflux disease) Obes (more content not included)...[facility]08-29-2022 History of Present illness Narrative* Shiraz Bo DO - 02/21/2022 12:46 PM EDT Images from the original note were not included. [facility] [place] [facility] [place] [facility] - Medical Spine Initial [...] gel - no benefit Therapies PT at [facility] in [place] in June 2021 - 2 times per week for 1 month, exercises, TENS, ice - no relief Ice/heat Prior spine/MSK interventions: -12/31/21 Dr. Muñoz: R GTB CSI - minimal relief for 1 day. 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 Author Type: Physician Type: [place] Notes Filed: 01/17/2022 3:48 PM Note Text: SERVICE DATE: January 17, 2022 PCP: Essie Ryan, TRANSIT MECHANIC, TRANSIT MECHANIC Patient was self-referred. Subjective Patient ID: Stacey [...] x 4 Crohn's disease without complication (HCC) [id number] Pulmonary Htn (Hcc) Obese Nirmala (Obstructive Sleep [...] (primary encounter diagnosis) Plan: CONSULT TO SPINE [facility] (M51.27) Lumbago-sciatica due to displacement [...] Sahu DATE: January 17, 2022 TIME: 3:46 [facility]07-25-2022 History of Present illness Narrative* Breezy Muñoz DO - 01/17/2022 3:42 PM EDT SERVICE DATE: January 17, 2022 PCP: Essie Ryan, NIURKA, TRANSIT MECHANIC Patient was self-referred. Subjective Patient ID: Stacey [...] x 4 Crohn's disease without complication (HCC) [id number] Pulmonary Htn (Hcc) Obese Nirmala (Obstructive Sleep [...] (primary encounter diagnosis) Plan: CONSULT TO SPINE [facility] (M51.27) Lumbago-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 Plan: [facility] Office Visit on 01/17/22 CONSULT TO SPINE [facility] PLAN I recommend she go to [...] 2022 TIME: 3:46 PM [facility]22 NoteHNO ID: [id number] Author: Breezy Muñoz DO Service: ? Author Type: Physician Type: [place] Notes Filed: 12/31/2021 1:10 PM Note Text: SERVICE DATE: December 31, 2021 PCP: sEsie Ryan CNP, NIURKA Patient was self-referred. Subjective [...] x 4 Crohn's disease without complication (HCC) [id number] Pulmonary Htn (Hcc) Obese Nirmala (Obstructive Sleep [...] trochanteric bursa Informed Consent Consent Obtained: Verbal [place] Protocol A moment to CARE was completed. (more content not included)...[facility]07-08-2022 History of Present illness Narrative* Breezy [...] x 4 Crohn's disease without complication (HCC) [id number] Pulmonary Htn (Hcc) Obese Nirmala (Obstructive Sleep [...] trochanteric bursa Informed Consent Consent Obtained: Verbal [place] Protocol A moment to CARE was completed. [...] 2021 TIME: 1:05 PM [facility] Evaluation note* Encounter Date Diagnosis Assessment [...] refer her to [facility] Christian [facility]. [employer] [facility] [employer] Other 05-25-2022 Evaluation note* Encounter Date Diagnosis [...] I will see her with those results. [employer] [facility] Other 06-21-2021 History of Past illness Narrative* Problem Noted Date Resolved Date Generalized abdominal pain 12/14/202012/16 documented as of this encounter (statuses as of 12/31/2021) [facility]06-[facility] History of Past illness Narrative* Problem Noted Date Resolved Date Generalized abdominal pain 12/14/202012/16 documented as of this encounter (statuses as of 01/17/2022) [facility] History of Past illness Narrative* Problem Noted Date Resolved Date Generalized abdominal pain 12/14/202012/16 documented as of this encounter (statuses as of 03/13/2022) [facility] No data available [facility] this [facility] Future App[facility]ments Appointment Date:10/24/2022 11:30:00 AM Scheduled Provider:Jose GARCIA MD Location:[facility] Appointment Type:URO Office Visit [facility] Evaluation + Plan note Future Appointments Appointment Date:05/29/2023 02:30:00 PM Scheduled Provider:Jose GARCIA MD Location:[facility] Appointment Type:URO Office Visit Future Scheduled Tests Laboratory* Calprotectin, Fecal 11/24/22 * CBC w/ Auto Diff 11/24/22 * Comprehensive Metabolic Panel 11/24/22 * C-Reactive Protein 11/24/22 Radiology* CT Abdomen/Pelvis w/contrast (enterography) 11/24/22 [facility] Evaluation + Plan note Future Appointments Appointment Date:05/29/2023 02:30:00 PM Scheduled Provider:Jose GARCIA MD [facility] Appoint[facility] Type:URO Office Visit Future Scheduled Tests Laboratory* Calprotectin, Fecal 11/24/22 * CBC w/ Auto Diff 11/24/22 * Comprehensive Metabolic Panel 11/24/22 * C-Reactive Protein 11/24/22 [facility] Future Appointments Appointment Date:02/02/2023 01:00:00 PM Scheduled Provider:Ignacia KHAN MD Location:[facility] Appointment Type:[facility] Follow Up Appointment Date:05/29/2023 02:30:00 PM Scheduled Provider:Jose GARCIA MD [facility] Appointment Type:URO Office Visit Future Scheduled Tests Laboratory* Calprotectin, Fecal 11/24/22 [facility] Future Appointments Appointment Date:05/29/2023 02:30:00 PM Scheduled Provider:Jose GARCIA MD [facility] Appointment Type:URO Office Visit Diagnostic Tests Pending * Calprotectin, Fecal 02[facility]02/23 [facility] Future Appointments Appointment Date:10/02/2023 03:00:00 PM Scheduled Provider:Jose GARCIA MD Location:[facility] Appointment Type:URO Office Visit [facility] evaluation note* Diagnosis Trochanteric bursitis of right hip- Primary Enthesopathy of hip region documented [facility] this [facility] [employer] 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 documented [facility] this encounter [facility]* Diagnosis Tendinopathy of right gluteal region- Primary Trochanteric bursitis of right hip Enthesopathy of hip region Chronic bilateral low back pain without sciatica Lumbar spondylosis Lumbosacral spondylosis without myelopathy documented [facility] this [facility]* Diagnosis Lumbar radiculopathy- Primary Thoracic or lumbosacral neuritis or radiculitis, unspecified documented in this encounter [facility]* Diagnosis Chronic right hip pain- Primary documented in this encounter [facility] SystemHistory general Narrative - Reported* Type Description Date Medical History acid reflux Surgical History biopsy of intestines Surgical History hysterectomy All [employer] Other Hospital Discharge instructions No data available for this section [facility] InstructionsNot on filedocumented in this encounter [facility]ructionsNot on filedocumented in this encounter [facility] SystemInstructionsNot on filedocumented in this encounter [facility] SystemProgress note No data available for this section [facility] (narrative)* Consultation (Routine) - Pending Review Specialty Diagnoses / Procedures Referred By Wan gamboa Referred To Contact Orthopedic Surgery Diagnoses Chronic right hip pain Imani Chan APRN-TRANSIT MECHANIC [address] [place] [address] Bang Cuellar MD [address] [place] [address] Referral ID Status Reason Start Date Expiration Date Visits Requested Visits Authorized [id number] Pending Review Specialty Services Required 09/12/2023 09/11/2024 1 1 [facility] [employer] [facility] Summary Purpose Family History No Family History Records FoundNo Family History Records FoundNo Family History Records FoundNo Family History Records FoundNo Family History Records Found No data available for this section No Family History Records FoundNo Family History Records FoundNo Family History Records Found Advance Directives No Advanced Directives Records FoundDocuments on File Type Date Recorded Patient 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 Expl 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 Advance Directive(s) 12/12/2020 8:14 PM Documents on File Type Date Recorded Patient 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 Expl anation Advance Directive(s) 12/12/2020 8:14 PM Reason for Referral Specialty Diagnoses / Procedures Referred By Wan gamboa Referred To Contact Diagnoses Trochanteric bursitis of right hip Tendinopathy of right gluteal region Chronic bilateral low back pain without sciatica Lumbar spondylosis Procedures CONSULT TO CHIROPRACTOR OFFICE/OUTPATIENT [facility] 60-74 MINUTES Shiraz Bo DO [address] [place] [address] Referral ID Status Reason Start Date Expiration Date Visits Requested Visits Authorized [id number] Pending Review PCP Requested Referral 02/21/2022 02/21/2023 1 1 Specialty Diagnoses / Procedures Referred By Contac t Referred To [facility] Sports Medicine Diagnoses Trochanteric bursitis of right hip Tendinopathy of right gluteal region Procedures CONSULT TO SPORTS MEDICINE OFFICE/OUTPATIENT [facility] 60-74 MINUTES Shiraz Bo, DO [address] [id number] Referral ID Status Reason Start Date Expiration Date Visits Requested Visits Authorized [id number] Authorized PCP Requested Referral 02/21/2022 02/21/2023 1 1 Specialty Diagnoses / Procedures Referred By Contac t Referred To [facility] [place] Diagnoses Trochanteric bursitis of right hip Lumbago-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 Procedures CONSULT TO [facility] OFFICE/OUTPATIENT [facility] 60-74 MINUTES Breezy Muñoz, DO [facility] [address] [place] [address] Referral ID Status Reason Start Date Expiration Date Visits Requested Visits Authorized [id number] Authorized PCP Requested Referral 01/17/2022 01/17/2023 1 1 Reason evaluate and treat. Gluteal tendon tear vs greater trochanteric bursitis Please refer to Bang Christian MD, Orthopaedic Surgery, [facility] Diagnosis 1 Trochanteric bursiti s, right hip (M70.61) Referral Organization [facility] Referring Provider First Name Alexis Referring Provider Last Name Dany ARDON Referring Provider Specialty Orthopedic Surgery Referred Organization [facility] Referred Address [address],[place],[address] Referred Provider Specialty ORTHOPEDIC S URGEON Referral [...] section and content) DATE CREATED AUTHOR 12/19/2017 [facility] DATE CREATED AUTHOR AUTHOR'S ORGANIZ ATION 12/08/2021 [facility] DATE CREATED AUTHOR AUTHOR'S ORGANIZ ATION 03/26/2022 [facility] DATE CREATED AUTHOR AUTHOR'S ORGANIZ ATION 12/04/2022 [facility] DATE CREATED AUTHOR AUTHOR'S ORGANIZ ATION 12/04/2022 [facility] DATE CREATED AUTHOR AUTHOR'S ORGANIZ ATION 09/05/2023 [facility] DATE CREATED AUTHOR AUTHOR'S ORGANIZ ATION 09/12/2023 [facility] DATE CREATED AUTHOR AUTHOR'S ORGANIZ ATION 11/18/2023 [facility] dical Specialists EPIC REASON FOR VISIT (unrecogniz ed section and content) Reason Comments New Specialty Diagnoses / Procedures Referred By Contac t Referred To Contact Orthopedics / ORTHOPAEDIC SURGERY Diagnoses Greater Trochanteric Bursitis right hip vs Gluteal Tendon tear *OUTSIDE IMG PT TO BRING Procedures LANA NEW NO XRAY Alexis Saenz II, MD [address] [place] [address] Breezy Muñoz DO [facility] [address] [place] [address] Referral ID Status Reason Start Date Expiration Date Visits Requested Visits Authorized [id number] Authorized Financial Clearance Not Required 12/24/2021 01/23/2022 99 99 Reason Comments Follow Up Reason Comments New Patient Evaluation Lower back pain/R ight side sciatica Specialty Diagnoses / Procedures Referred By Contac t Referred To Contact [facility] [place] Diagnoses Trochanteric bursitis of right hip Lumbago-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 Procedures CONSULT TO [facility] OFFICE/OUTPATIENT [facility] 60-74 MINUTES Breezy Muñoz, DO [facility] [address] [place] [phone] Referral ID Status Reason Start Date Expiration Date V isits Requested Visits Authorized [id number] Closed PCP Requested Referral 01/17/2022 01/17/2023 1 1 Reason Comments Hip Pain Reason Comments Hip Pain Source Comments (unrecognize d section and content) In the event this informatio n is protected by the Federal Confidentiality of Alcohol and Drug Abuse Patient Records regulations: The Federal rules restrict any use of the information to criminally investigate or prosecute any alcohol or drug abuse patient.[facility] the event this information is protected by the Federal Confidentiality of Alcohol and Drug Abuse Patient Records regulations: The Federal rules restrict any use of the information to criminally investigate or prosecute any alcohol or drug abuse patient.[facility] the event this information is protected by the Federal Confidentiality of Alcohol and Drug Abuse Patient Records regulations: The Federal rules restrict any use of the information to criminally investigate or prosecute any alcohol or drug abuse patient.[facility] Teams (unrecognized sec tion and content) Graphics Artist Relationship Specialty Start Date End Date Essie Ryan CNP PCP - General Family Practice 07/22/16 Adán Torres Obstetrics 07/22/16 Alexis Saenz II, MD [address] [place] [address] Referring Orthopedics 12/13/21 Graphics Artist Relationship Specialty Start Date End Date Essie Ryan CNP PCP - General Family Practice 07/22/16 Adán Torres, DO Obstetrics 07/22/16 Alexis Saenz II, MD [address] [place] [address] Referring Orthopedics 12/13/21 Graphics Artist Relationship Specialty Start Date End Date Essie Ryan CNP PCP - General Family Practice 07/22/16 Adán Torres, DO Obstetrics 07/22/16 Alexis Saenz II, MD [address] [place] [address] Referring Orthopedics 12/13/21 Graphics Artist Relationship Specialty Start Date End Date Essie Ryan, EMAIL MARKETING COORDINATOR-TRANSIT MECHANIC [address] [place] [address] PCP - General Nurse Practitioner 10/03/18 Graphics Artist Relationship Specialty Start Date End Date Essie Ryan, LAY-TRANSIT MECHANIC [address] [place] [address] PCP - General Nurse Practitioner 10/03/18 Graphics Artist Relationship Specialty Start Date End Date Essie RyanLAY-TRANSIT MECHANIC [address] [place] [address] PCP - General Nurse Practitioner 10/03/18 FOR [...] BE BASED ON THE PRIMARY CLINICAL RECORDS. [facility]. provides no warranty or guarantee of the accuracy or completeness of information in this document.
== END 2023-11-21 10:57 | disposition home or self-care (01) ==
LOC: EC 10:56
PROVIDERS: PCP Nurse Practitioner; Visit Provider Podiatrist Foot & Ankle Surgery
DX: M79.672 Pain in left foot (principal)
CPT/HCPCS: 73630

== ENCOUNTER 2023-12-27 06:44 | Outpatient (OUT) | payer OTHER, SELFPAY ==
--- NOTE | 2023-12-27 | MR_ITS ---
The [address] [address] Patient Name: GAMAL FIGUEROA MRN: [facility]:[id number] date: 1975 Sex: F Assigned Patient Location: MRI Current Patient Location: MRI Accession/Order Number: [id number] Exam Date: 12/27/2023 07:00 Report Date: 12/27/2023 20:25 At the request of: ARSALAN PALMER Procedure: MR lumbar spine wo con EXAM: MR lumbar spine wo con HISTORY: Radiculopathy of lumbar region, M54.16. Intermittent lumbar spine pain along with right hip pain for 3 years. No recent injury. COMPARISON: Prior lumbar spine MRI from 10/27/2021. TECHNIQUE: Multiplanar and multisequence imaging of the lumbar spine was performed without contrast. FINDINGS: Motion artifact mildly degrades evaluation on this study. No acute fracture or spondylolisthesis is evident. There is disc desiccation at L3-L4 and L4-L5. Heterogeneity of the bone marrow signal is consistent with mixed red and fatty marrow. No acute abnormality is identified involving visualized intrapelvic or intra-abdominal structures. The visualized aorta is normal in diameter. The upper sacrum is intact. There are no pars defects. The conus terminates at the T12-L1 level L5-S1: Moderate to severe left and mild right-sided facet arthropathy is evident. There is a minimal disc bulge without central or foraminal stenosis. L4-L5: There is a mild diffuse disc bulge and moderate facet arthropathy without central or foraminal stenosis. L3-L4: There is a mild disc bulge and mild facet arthropathy without central or foraminal stenosis. L2-L3: There is no focal disc herniation or central or foraminal stenosis. L1-L2: There is no focal disc herniation or central or foraminal stenosis. MR/MR lumbar spine wo con IMPRESSION: 1. Mild discogenic change and associated facet arthropathy in the lumbar spine as described above. There is no central or foraminal stenosis at any level. 2. No fracture or spondylolisthesis. Electronically authenticated by: JEFF VILLALOBOS Date: 12/27/2023 20:25
--- OUTSIDE RECORDS SUMMARY | 2023-12-27 06:46 | XMS_ITS | CCD ---
Author Organization [facility] Care Team Providers Care Quality Officer Name Role Phone PHYSICIAN, DEFAULT Unavailable Unavailable PHYSICIAN, DEFAULT Unavailable Unavailable AICHHOLZ, ESSIE Unavailable Unavailable PHYSICIAN, DEFAULT Unavailable Unavailable PHYSICIAN, DEFAULT Unavailable Unavailable AICHHOLZ, ESSIE Unavailable Unavailable PHYSICIAN, DEFAULT Unavailable Unavailable PHYSICIAN, DEFAULT Unavailable Unavailable AICHHOLKamila, ESSIE Unavailable Unavailable Alexis Saenz II Unavailable Essie Ryan CNP Primary Care Provider Adán Torres Unavailable Dany ARDON MD, Robert M Unavailable Adán Torres DO Unavailable ESSIE RYAN Primary Care Physician AicEssie ha CNP Primary Care Provider [phone] Adán Torres DO Unavailable [phone] Dany ARDON MD, Robert M Unavailable ESSIE RYAN Primary Care Unavailable SHIRAZ BO Attending Unavailable BREEZY MUÑOZ Referring Unavailable ESSIE RYAN Primary Care Unavailable BREEZY MUÑOZ Attending Unavailable BREEZY MUÑOZ Attending Unavailable ESSIE RYAN Primary Care Unavailable CAN VALERA Attending Unavailable CAN VALERA Consulting Unavailable AICJenniferHOLNIURKA Treviño ESSIE Primary Care Unavailable CAN VALERA Admitting Unavailable DR MARKO PERRY Admitting Unavailable ANDREW López, DR MARKO Stafford Attending Unavailable NIURKA RYAN ESSIE Primary Care Unavailable ARTURO VANEGAS Consulting Unavailable ANDREW ., DR MARKO Stafford Attending Unavailable MORALES ., DR MARKO Stafford Consulting Unavailable AICHHOLZ, [facility] ESSIE Primary Care Unavailable MORALES ., DR MARKO Stafford Admitting Unavailable APLINGSHARONA Attending Unavailable APLING, SHARONA B Consulting Unavailable APLING, SHARONA B Admitting [facility] Primary Care Unavailable PAULETTE PHIPPS Unavailable AICHOLZ, [facility] ESSIE Primary Care Unavailable GARCIA ., DR BAILEY Attending Unavailable GARCIA ., DR BAILEY Consulting Unavailable GARCIA ., DR BAILEY Admitting Unavailable WEST, DR PAULETTE León Consulting Unavailable MORALES ., DR MARKO Stafford Admitting Unavailable MORALES ., DR MARKO Stafford Attending Unavailable MORALES ., DR MARKO Stafford Consulting Unavailable AICHOLZ, [facility] ESSIE Primary Care Unavailable DELANEY .ARTURO Consulting Unavailable MORALES ., DR MARKO Stafford Admitting Unavailable MORALES ., DR MARKO Stafford Attending Unavailable [facility] Primary Care Unavailable YOBANY ., DR RASMUSSEN Attending Unavailable [facility] Primary Care Unavailable YOBANY ., DR RASMUSSEN Admitting Unavailable WEST, DR PAULETTE León Consulting Unavailable YOBANY ., DR RASMUSSEN Consulting Unavailable AICHOLZ, [facility] Primary Care Unavailable GARCIA ., DR BAILEY Admitting Unavailable GARCIA ., DR BAILEY Attending Unavailable GARCIA ., DR BAILEY Consulting Unavailable ZIEBER, DR PREET Palafox Consulting Unavailable TIMMIS, DR RED Attending Unavailable TIMMIS, DR RED Consulting Unavailable TIMMIS, DR RED Admitting Unavailable AICHOLZ, [facility] ESSIE Primary Care Unavailable ZIEBER, DR PREET Palafox Consulting Unavailable TIMMIS, DR RED Attending Unavailable TIMMIS, DR RED Consulting Unavailable TIMMIS, DR RED Admitting Unavailable AICHHOLZ, [facility] ESSIE Primary Care Unavailable ZIEBER, DR PREET Plaafox Consulting Unavailable TIMMIS, DR RED Attending Unavailable TIMMIS, DR RED Consulting Unavailable AICHHOLZ, [facility] ESSIE Primary Care Unavailable TIMMIS, DR RED Admitting Unavailable WEST, DR PAULETTE León Consulting Unavailable AICHHOLZ, [facility] ESSIE Primary Care Unavailable GARCIA ., DR BAILEY Attending Unavailable GARCIA ., DR BAILEY Consulting Unavailable GARCIA ., DR BAILEY Admitting Unavailable ZIEBER, DR PREET Palafox Consulting Unavailable LAKSHMIPATHY ., NARENDRANATH Attending Marleni vailable AICHHOLZ, [employer] ESSIE Primary Care Unavailable LAKSHMIPATHY ., NARENDRANATH Admitting Marleni vailable MORALES ., DR MARKO Stafford Admitting Unavailable MORALES ., DR MARKO Stafford Attending Unavailable MORALES ., DR MARKO Stafford Consulting Unavailable AICHHOLZ, [employer] ESSIE Primary Care Unavailable DELANEY ., ARTURO Consulting Unavailable AICHHOLZ, [employer] ESSIE Primary Care Unavailable WEST, DR PAULETTE León Consulting Unavailable GARCIA ., DR BAILEY Attending Unavailable GARCIA ., DR BAILEY Admitting Unavailable AICHHOLZ, [employer] ESSIE Consulting Unavailable YOBANY ., DR RASMUSSEN Attending Unavailable YOBANY ., DR RASMUSSEN Consulting Unavailable AICHHOLZ, [employer] ESSIE Primary Care Unavailable YOBANY ., DR RASMUSSEN Admitting Unavailable AICHHOLZ, [employer] ESSIE Primary Care Unavailable AICHHOLZ, [employer] ESSIE Attending Unavailable AICHHOLZ, [employer] ESSIE Consulting Unavailable AICHHOLZ, [employer] ESSIE Admitting Unavailable DELANEY ., ARTURO Admitting Unavailable DELANEY ., ARTURO Attending Unavailable AICHHOLZ, [employer] ESSIE Primary Care Unavailable ZIEBER, DR PREET Palafox Consulting Unavailable DELANEY ., ARTURO Consulting Unavailable TIMMIS, DR RED Attending Unavailable TIMMIS, DR RED Consulting Unavailable TIMMIS, DR RED Admitting Unavailable AICHHOLZ, [employer] ESSIE Primary Care Unavailable ZIEBER, DR PREET Palafox Consulting Unavailable DIAB ., EDNA Attending Unavailable DIAB ., EDNA Admitting Unavailable MARKER ., DR JIMÉNEZ Consulting Unavailable AICHHOLZ, [employer] ESSIE Primary Care Unavailable DIAB ., EDNA Consulting Unavailable OWOYELE, MISTY Consulting Unavailable AICHHOLZ, [employer] ESSIE Primary Care Unavailable AICHHOLZ, [employer] ESSIE Attending Unavailable AICHHOLZ, [employer] ESSIE Consulting Unavailable AICHHOLZ, [employer] ESSIE Admitting Unavailable ZIEBGEORGE, DR PREET Palafox Consulting Unavailable MORALES ., DR MARKO Stafford Attending Unavailable MORALES ., DR MARKO Stafford Admitting Unavailable AICHHOLZ, [employer] ESSIE Primary Care Unavailable MICHAEL, DR MCCARTHY Referring Unavailable GARCIA ., DR BAILEY Consulting Unavailable MORALES ., DR MARKO Stafford Consulting Unavailable CAN VALERA Attending Unavailable 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 [employer]K, Essie J Primary Care Provider Juliana Block Unavailable PJ GANNON Attending Unavailable PJ GANNON E Referring Unavailable AICHHOLZ, ESSIE J Primary Care Unavailable PJ GANNON E Admitting Unavailable GANNONPJ LEDEZMA E Attending Unavailable AICHHOLZ, ESSIE J Referring Unavailable AICHHOLZ, ESSIE J Primary Care Unavailable EVANS ANDERSON Attending Unavailable AICHHOLZ, ESSIE J Referring Unavailable AICHHOLZ, ESSIE J Primary Care Unavailable IMANI CHAN Attending Unavailable AICHHOLZ, ESSIE J Referring Unavailable AICHHOLZ, ESSIE J Primary Care Unavailable IMANI CHAN Attending Unavailable AICHHOLZ, ESSIE J Referring Unavailable AICHHOLZ, ESSIE J Primary Care Unavailable SALAM, Beth Admitting Unavailable SALAM, Ignacia Attending Unavailable SALAM, Ebth Attending Unavailable SALAM, Beth Referring Unavailable SALAM, Beth Attending Unavailable Jose GARCIA Attending Unavailable LESLIE JUNG Attending Unavailable SALAM, Beth Admitting Unavailable SALAM, Ignacia Attending Unavailable SALAM, Beth Attending Unavailable SALAM, Beth Referring Unavailable SALAM, Beth Admitting Unavailable SALAM, Beth Admitting Unavailable SALAM, Beth Attending Unavailable AICHHOLZ, ESSIE Attending Unavailable TIMMIS, NEDA H Attending Unavailable AICHHOLZ, ESSIE Attending Unavailable FRANCESMARY BRADFORD Attending Unavailable AICHHOLZ, ESSIE Referring Unavailable TIMMISNEDA H Attending Unavailable AICHHOLZ, ESSIE Referring Unavailable AICHHOLZ, ESSIE Attending Unavailable FAWSHAIKH GONZALEZ Attending Unavailable JANET MODI Attending Unavailable CHRISTOPHER, Attending Unavailable JAMIE RANDHAWA Attending Unavailable PALMERARSALAN BRAVO Referring Unavailable TATTERSJAMIE RAMIREZ Attending Unavailable PALMER, ARSALAN Referring Unavailable KOLE FULTON Attending Unavailable PALMER, ARSALAN Referring Unavailable JOSIAS LOPEZ Attending Unavailable KYLE MCNEIL Referring Unavailable TINO PEREZ Attending Unavailable EWAKYLE RUELAS Referring Unavailable KELBLEYTINO Attending Unavailable EWAKYLE L Referring Unavailable KELBLETINO Harvey Attending Unavailable EWAKYLE L Referring Unavailable BLACKSJOSIAS RAMAN Attending Unavailable KYLE MCNEIL Referring Unavailable Allergies Allergy Classification Reported Allergen(s) Allergy Type Date of Onset Reaction(s) Facility (5 sources) Penicillins; Translations: [PENICILLINS] Drug allergy (disorder) 09-21-2011 [facility] Repository (3 sources) Penicillin V Drug Allergy Fever [facility] Other (6 sources) Penicillins Drug Allergy 07-27-2016 Unknown [facility] (9 sources) History of - penicillin allergy (context-depende nt category); Translations: [H/O: penicillin allergy] Drug allergy [facility] (1 source) Penicillin Drug Allergy Fever [facility] Other Medications Current Medications Medication Drug Class(es) Dates Sig (Normalized) Sig (Original) ambrisentan 10 mg oral tablet (3 sources) Endothelin Receptor Antagonist take 10 mg by mouth once daily ambrisentan (LETAIRIS ORAL) Take 10 mg by mouth daily. 0 Active atorvastatin 10 mg oral tablet (8 sources) HMG-CoA Reductase Inhibitor Start: 04-22-2023 atorvastatin 10 mg Tab Refills(s) 0 Start Date: 05/29/23 Status: Ordered Start: 10-13-2020 take 1 tablet by billie th once daily atorvastatin (LIPITOR) 20 mg tablet Take 20 mg by mouth once daily. 0 10/13/2020 Active Comment on above: Take 20 mg by mouth once daily. busPIRone hydrochloride 7.5 mg oral tablet (5 sources) Start: 05-29-2023 busPIRone 7.5 mg oral [...] once daily. meloxicam 15 mg oral tablet (6 sources) Nonsteroidal Anti-inflammatory Drug Start: 11-28-2023 meloxicam 15 mg Tab Refills(s) 0 Start Date: 11/28/23 Status: Ordered Start: 09-12-2023 take 1 tablet by billie th in the morning meloxicam (MOBIC) 15 mg tablet Indications: Chronic right hip pain Take 1 tablet (15 mg total) by mouth in the morning. 30 tablet 1 09/12/2023 Active Start: 12-09-2021 take 1 tablet by billie th every twenty-four hours Meloxicam 15 MG 1 tablet Orally Once a day for 30 day(s) Nov, Active Aleve (8 sources) Nonsteroidal Anti-inflammatory Drug Start: 02-25-2022 take 1 mg by mouth every twelve hours Aleve mg, Oral, q12hr, Refills(s) 0 Start Date: 02/25/22 Status: Ordered Prilosec (18 sources) Proton Pump Inhibitor Start: 12-23-2010 Prilosec [...] by mouth once daily. polyethylene glycol 3350 347303 mg / potassium chloride 1480 mg / sodium bicarbonate 5720 mg / sodium chloride 42647 mg powder for oral solution (3 sources) Osmotic Laxative Start: 11-28-2022 NuLYTELY [place] oral powder for reconstitution See Instructions, 1 EA, Refill(s) 0, See physician instructions prior to procedure., [id number], 155, cm, 11/24/22 13:47:00 EDT, Height/Length Dosing, [...] 2 tab(s), Refills(s) 0, [facility]: [facility][id number], 155, cm, 03/03/22 15:04:00 EDT, Height/Length Dosing, [...] Problem Date Documented Date Episodic/Chronic Abdominal pain (18 sources) Flank pain; Translations: [Abdominal pain] Onset: 03-12-2022 02-25-2022 Episodic Anxiety disorders (8 sources) Anxiety disorder 12-23-2010 Chronic Calculus of urinary tract (13 sources) Kidney stone; Translations: [Calculus of kidney] Onset: 04-22-2022 Episodic Cardiac dysrhythmias (6 sources) Palpitations; Translations: [PALPITATIONS] Onset: 11-08-2022 Episodic Disorders of lipid metabolism (20 sources) Hyperlipidemia; Translations: [Other hyperlipidemia] Onset: 12-14-2020 12-14-2020 Chronic Esophageal disorders (13 sources) Gastroesophageal reflux disease; Translations: [Gastro-esophageal reflux disease without esophagitis] Onset: 09-23-2022 12-16-2020 Chronic Genitourinary symptoms and ill-defined conditions (20 sources) Lora hematuria; Translations: [Blood in urine] [...] NECK] Onset: 10-04-2022 Episodic Pulmonary heart disease (14 sources) Pulmonary hypertension; Translations: [Pulmonary hypertension, unspecified] [...] (1 source) nephrolithiasis( Confirmed ) 12-23-2010 Unclassified (7 sources) nephrolithiasis 12-23-2010 Unclassified (1 source) CONTACT W/AND (SUSP) EXPOS COVID-19; Translations: [CONTACT W/AND (SUSP) EXPOS COVID-19] Onset: 01-24-2022 Viral infection (2 sources) COVID-19; Translations: [COVID-19] Onset: 01-27-2022 Results Test Name Value Interpretation Reference Range Facility Patient Educationon 11-28-19 Patient Education Nephrology Dietary Guidelines to Help Prevent Kidney Stones Kidney stones are deposits of minerals and salts that form inside your kidneys. Your risk of developing kidney stones may be greater depending on your diet, your lifestyle, the medicines you take, and whether you have certain medical conditions. Most people can lower their risks of developing kidney stones by following these dietary guidelines. Your dietitian may give you more specific instructions depending on your overall health and the type of kidney stones you tend to develop. What are tips for following this plan? Reading food labels ? Choose foods with no salt added or low-salt labels. Limit your salt (sodium) intake to less than 1,500 mg a day. ? Choose foods with calcium for each meal and snack. Try to eat about 300 mg of calcium at each meal. Foods that contain 200?500 mg of calcium a serving include: ? 8 oz (237 mL) of milk, calcium-fortifiednon -dairy milk, and calcium-fortifiedfru it juice. Calcium-fortified means that calcium has been added to these drinks. ? 8 oz (237 mL) of kefir, yogurt, and soy yogurt. ? 4 oz (114 g) of tofu. ? 1 oz (28 g) of cheese. ? 1 cup (150 g) of dried figs. ? 1 cup (91 g) of cooked broccoli. ? One 3 oz (85 g) can of sardines or mackerel. Most people need 1,000?1,500 mg of calcium a day. Talk to your dietitian about how much calcium is recommended for you. Shopping ? Buy plenty of fresh fruits and vegetables. Most people do not need to avoid fruits and vegetables, even if these foods contain nutrients that may contribute to kidney stones. ? When shopping for convenience foods, choose: ? Whole pieces of fruit. ? Pre-made salads with dressing on the side. ? Low-fat fruit and yogurt smoothies. ? Avoid buying frozen meals or prepared deli foods. These can be high in sodium. ? Look for foods with live cultures, such as yogurt and kefir. ? Choose high-fiber grains, such as whole-wheat breads, oat bran, and wheat cereals. Cooking ? Do not add salt to food when cooking. Place a salt shaker on the table and allow each person to add their own salt to taste. ? Use vegetable protein, such as beans, textured vegetable protein (TVP), or tofu, instead of meat in pasta, casseroles, and soups. Meal planning ? Eat less salt, if told by your dietitian. To do this: ? Avoid eating processed or pre-made food. ? Avoid eating fast food. ? Eat less animal protein, including cheese, meat, poultry, or fish, if told by your dietitian. To do this: ? Limit the number of times you have meat, poultry, fish, or cheese each week. Eat a diet free of meat at least 2 days a week. ? Eat only one serving each day of meat, poultry, fish, or seafood. ? When you prepare animal proteins, cut pieces into small portion sizes. For most meat and fish, one serving is about the size of the palm of your hand. ? Eat at least five servings of fresh fruits and vegetables each day. To do this: ? Keep fruits and vegetables on hand for snacks. ? Eat one piece of fruit or a handful of berries with breakfast. ? Have a salad and fruit at lunch. ? Have two kinds of vegetables at dinner. ? You may be told to limit foods that are high in a substance called oxalate. These include: ? Spinach (cooked), rhubarb, beets, sweet potatoes, and [place] chard. ? Peanuts. ? Potato chips, ukrainian fries, and baked potatoes with skin on. ? Nuts and nut products. ? Chocolate. ? If you regularly take a diuretic medicine, make sure to eat at least 1 or 2 servings of fruits or vegetables that are high in potassium each day. These include: ? Avocado. ? Banana. ? Rosebud, prune, carrot, or tomato juice. ? Baked potato. ? Cabbage. ? Beans and split peas. Lifestyle ? Drink enough fluid to keep your urine pale yellow. This is the most important thing you can do. Spread your fluid intake throughout the day. ? If you drink alcohol: ? Limit how much you have to: ? 0?1 drink a day for women who are not . ? 0?2 drinks a day for men. ? Know how much alcohol is in your drink. In the [place] one drink equals one 12 oz bottle of beer (355 mL), one 5 oz glass of wine (148 mL), or one 1? oz glass of hard liquor (44 mL). ? Lose weight if told by your health care provider. Work with your dietitian to find an eating plan and weight loss strategies that work best for you. General information ? Talk to your health care provider and dietitian about taking daily supplements. Depending on your health and the cause of your kidney stones, you may be told: ? Do not take high-dose supplements of vitamin C (1,000 mg a day or more). ? To take a calcium supplement. ? To take a daily probiotic supplement. ? To take other supplements such as magnesium, fish oil, or vitamin B6. ? Take inzc-xjs-shledwg and prescription medicines only as told by your health care provider. These include supplements. What foods sh (more content not included)... Normal [facility] Screenson 11-28-2023 Screens [id number]# 1.00TIFF Normal [facility] Urology Office/Clinic Noteon 11-28-2023 Urology Office/Clinic Note Chief Complaint 6m Metabolic Work Up HPI Staff 6 months with metabolic work up. Previous DX: kidney stones and gross hematuria. S/P ESWL [address] Verduzco. Metabolic w/up done 07/25/23. Denies flank pain. Denies pain/burning and visible blood in urine. Did notice darker colored urine last week. Subsided after 1 day. No imaging for today's appt. History of Present Illness staff HPI reviewed and agree. Tests Reviewed: Reviewed UA, metabolic workup Review of Systems PHQ Score Initial Depression Screen Score: 0 SCORE no fever, chills, malaise, myalgia. no rash/lesions. no chest pain, palpitations, or SOB. no abdominal pain, nausea, vomiting. no unilateral calf swelling, redness, pain Physical Exam Vitals & Measurements HR: 82(Peripheral) RR: 16 BP: 139/84 HT: 61 in HT: 155 cm WT: 89 kg WT: 195.8 lb BMI: 37.04 General: nontoxic, NAD Mouth: moist mucosa Lungs: normal respiratory effort Cardio: regular rate, good distal perfusion Abdomen: nondistended, no suprapubic distention or tenderness, no CVA tenderness Neurologic: Grossly normal Skin: No rashes or suspicious lesions Assessment/Plan BBS 9. 1. Kidney stones (N20.0: Calculus of kidney) CTU 04/22/22 [facility] - 6 mm R renal stone and 3 mm L renal stone. KUB 10/26/22 - No stones id'd. CT AP w con 12/06/22 [facility] - 5 mm RLP stone and 2 mm LLP stone. Mild fulness at R renal pelvis with tapering at [facility]. KUB 01/05/23 [facility] [place] 4 mm renal stone in RLP. KUB 05/24/23 [facility] - No stones id'd. Metabolic workup 07/25/23 - Volume 950 cc. Otherwise 24hr urine values WNL and blood work WNL. Reviewed metabolic workup with pt. Counseled pt on gradually increasing fluid intake for stone prevention, w a goal of 2.5L urine production/24 hrs. Follow up 1 yr KUB, BEN or sooner if needed. Pt understands and agrees with plan. -Increase fluid intake. 2. Gross hematuria (R31.0: Gross hematuria) Chronic, intermittent. Hx of hysterectomy. [1] S/p Cysto 03/08/22. Neg CTU 04/22/22. Denies gross hematuria. UA today negative for infection. Follow-up With When Contact Information ANGELICA SHAIKH, LESLIE [place], URL [address] [place] [id number] Additional Instructions: 1 yr MAGALYS, BEN Patient Education Dietary Guidelines to Help Prevent Kidney Stones Documentation recorded by the scribmanav Denis accurately reflects the services(s) I performed and decisions made by me. Authenticated by Leslie Jung PA-C on 11/28/2023 10:10:21. I, Zenobia Denis, personally scribed for NINO Pennington on 11/28/2023 09:36:55. . Problem List/Past Medical History Ongoing Bipolar depression Chronic GERD Crohn's disease, small intestine Flank pain Gross hematuria Hyperlipidemia Kidney stones Nocturia PAH (pulmonary artery hypertension) Historical anxiety disorder crohn's disease depression hypercholesterolemia nephrolithiasis Procedure/Surgical History Hemithyroidectomy (12/2022), Hysterectomy, laparoscopy, partial colectomy, Tonsillectomy, tubal ligation. Medications Aleve, Oral, q12hr atorvastatin 10 mg Tab busPIRone 7.5 mg oral tablet meloxicam 15 mg Tab Prilosec, Oral, Daily Allergies H/O: penicillin allergy Social History Alcohol - Denies Alcohol Use, 12/23/2010 Substance Abuse - Denies Substance Abuse, 12/23/2010 Tobacco Never (less than 100 in lifetime) Tobacco Use:. Never Smokeless Tobacco Use:. Household tobacco concerns: No. Yes, 11/28/2023 Past, 12/23/2010 Family History Breast cancer: Mother. Coronary artery disease: Father. Diabetes mellitus type 2: Father. Hypertension: Father. Osteoporosis: Mother. Primary malignant neoplasm of colon: Aunt. Immunizations Vaccine Date Status influenza, whole 05/03/2012 Recorded Lab Results Ambulatory Point of Care Results Bilirubin Urine Dipstick: Negative (11/28/23 09:04:00) Blood Urine Dipstick: Trace-intact (11/28/23 09:04:00) Glucose Urine Dipstick: Negative (11/28/23 09:04:00) Ketones Urine Dipstick: Negative (11/28/23 09:04:00) Leukocytes Urine Dipstick: Negative (11/28/23 09:04:00) Nitrite Urine Dipstick: Negative (11/28/23 09:04:00) Protein Urine Dipstick: Negative (11/28/23 09:04:00) Specific [place] Urine Dipstick: 1.020 (11/28/23 09:04:00) Urine Appearance Urine Dipstick: Clear (11/28/23 09:04:00) Urine Color Urine Dipstick: Yellow (11/28/23 09:04:00) Urobilinogen Urine Dipstick: Normal 0.2-1 EU/dl (11/28/23 09:04:00) pH Urine Dipstick: 7 (11/28/23 09:04:00) [1] URO- 6 month f/u; JOSE FELIX, Jose Palafox 05/29/2023 15:18 EST [facility] Comment on above: Result Comment: Elec tronically Signed By: LESLIE JUNG PA-C\.br\Date and Time Signed: 11/28/23 10:11 EDT\.br\Electronically Co-Signed By: Zenobia Denis\.br\Date and Time Co-Signed: 11/28/23 09:37 EDT [facility] 08-01-2023 Lab Reports [id number] #1.00TIFF [facility] 07-31-2023 Lab Reports [id number] #1.00TIFF [facility] 07-28-2023 Lab Reports [id number] #1.00TIFF [facility] Lab Reports [id number] #1.00TIFF [facility] 07-26-2023 Lab Reports [id number] #1.00TIFF Normal [facility] COVID/FLU/RSV RT-PCRon 07-11 SARS-CoV-2 (COVID-19) RNA IZAIAH+probe Ql (Unsp spec) Positive [facility] Other COVID/FLU/RSV RT-PCR Negative [facility] Other Ambulatory Visit Summaryon 1 07-30-2022 Ambulatory Visit Summary STACEY SAHU :1975 Visit Date:05/29/2023 Ambulatory Visit Instructions Your Diagnosis Kidney stones Gross hematuria Tests Performed Urnls Dip Stick Auto w/o Microscopy POC 32335 Your Care Team Attending Physician - JOSE [...] w/u Where: [facility] [address] , [place] [address] [phone] Medications What How Much When Instructions Unchanged [...] Urnls Dip Stick Auto w/o Microscopy POC 93689 (05/29/2023) Bilirubin Urine Dipstick - Negative Blood Urine Dipstick - 3+ Large Glucose Urine Dipstick - Negative Ketones Urine Dipstick - Negative Leukocytes Urine Dipstick - Negative Nitrite Urine Dipstick - Negative Protein Urine Dipstick - Negative Specific [place] Urine Dipstick - >=1.030 Urine Appearance Urine [...] treatment for. anxiety disorder crohn's disease depression hypercholesterolemia nephrolithiasis Patient Survey You may receive a [...] glands make too much parathyroid hormone (primary hyperparathyroidism) . ? A buildup of a type of [...] Santy (more content not included)... Normal [facility] Patient Educationon 05-29-20 Patient Education Urology [...] glands make too much parathyroid hormone (primary hyperparathyroidism) . ? A buildup of a type of [...] these instructions at home: Medicines ? Take hfmo-vui-zsbhifp and prescription medicines only as told by [...] (NKF): www.kidney.org ? [facility] ([facility]): www.urologyhealth.or g Contact a doctor if: ? You have [...] provider. Document Revised: 02/14/2022 Document Reviewed: 02/14/2022 [employer]agent Patient Education ? 2022 [employer]. [facility] Urology Office/Clinic Noteon 05-29-2023 Urology [...] stones id'd. CT AP w con 12/06/22 [facility] [place] 5[place] RLP stone and 2mm LLP stone. Mild fulness at R renal pelvis with tapering at UPJ. KUB 01/05/23 [facility] [place] - 4mm renal stone in RLP. KUB [...] [facility] [address], [place] [address]- [phone] Additional Instructions: 4 mos w/ metabolic w/u Patient Education Kidney Stones, Ygbd-bo-Gzam I, Imani Renae, personally scribed for Dr. [...] hypertension) Historical anxiety disorder crohn's disease depression hypercholesterolemia nephrolithiasis Procedure/Surgical History Hemithyroidectomy (12/2022), Hysterectomy, laparoscopy, [...] Negative (more content not included)... Normal [facility] Comment on above: Result Comment: Elec [...] rubs, murmurs, or gallop. Peripheral: no edema Gastrointestinal/Abd omen: Abdomen: normal consistency and bowel sounds; no [...] with voice recognition artificial intelligence software, specifically AxialMED, PlanZap and or Abaxia. Substitutions may have occurred due to the inherent limitations of voice recognition and artificial intelligence software. ATTESTATION: Documentation services were performed after patient or guardian consented to allow [employer] to record this visit. DELVIN it infrastructure specialist and provider reviewed before signing. DELVIN: Prerna Gamayon/Pasted by Ana Rosa Iglesias. Follow-up No qualifying data available Problem List/Past Medical History Ongoing Bipolar depression Chronic GERD Crohn's disease, small intestine Flank pain Gross hematuria Hyperlipidemia Kidney stones Nocturia PAH (pulmonary artery hypertension) Historical anxiety disorder crohn's disease depression hypercholesterolemia nephrolithiasis Procedure/Surgical History Hysterectomy, laparoscopy, partial colectomy, Tonsillectomy, tubal ligation. Medications Aleve, Oral, q12hr NuLYTELY [place] oral powder for reconstitution, See Instructions Prilosec, Oral, Daily Allergies H/O: penic (more content not included)... Normal [facility] Comment on above: Result Comment: Elec tronically Signed By: Ana Rosa Iglesias\.br\Date and Time Signed: 02/02/23 15:48 EDT\.br\Electronically Co-Signed By: Ignacia KHAN MD\.br\Date and Time Co-Signed: 02/06/23 14:00 EDT Calprotectin, Fecalon 2022 Calprotectin (Stl) [Mass/Mass] 87 mcg/gm Invalid Interpretation Code 0-120 [facility] Comment on above: Result Comment: Conc entration Interpretation Follow-Up < 5 - 50 ug/g Normal None >50 -120 ug/g Borderline Re-evaluate in 4-6 weeks >120 ug/g Abnormal Repeat as clinically indicated Performed at: [facility] [id number] MD Kody Hayes Performed By: #### 1 [id number] ####[facility] [address] [place] [address] Ambulatory Visit Summaryon 0 02-02-2023 Ambulatory Visit [...] FELIX, Jose Palafox Where: [facility] Jatinder Normal [facility] Auto Diffon 02-01-2023 Basophils/100 WBC (Bld) 2.7 % High 0.0-2.0 [facility] Comment on above: Order Comment: Order Added by Discern Expert. Performed By: #### 2 109959, 9520909, 6973010, 49575335, 0154323 ####[facility] [address] [place] [address] Basophils/Leukocytes Auto (Bld) [Pure # fraction] 0.2 E9/L Normal 0.0-0.2 [facility] Comment on above: Order Comment: Order Added by Discern Expert. Performed By: #### 2 198121, 7164598, 3694228, 61653479, 5264446 ####[facility] [address] [place] [address] Eosinophils/100 WBC (Bld) 8.5 % High 0.0-8.0 [facility] Comment on above: Order Comment: Order Added by Discern Expert. Performed By: #### 2 791052, 1440247, 2082082, 85887250, 6391749 ####[facility] [address] [place] [address] Eosinophils/Leukocyte s Auto (Bld) [Pure # fraction] 0.7 E9/L High 0.0-0.5 [facility] Comment on above: Order Comment: Order Added by Discern Expert. Performed By: #### 2 984567, 2530410, 5523287, 31944443, 3443120 ####[facility] [address] [place] [address] Lymphocytes/100 WBC (Bld) 34.8 % Normal 14.0-50.0 [facility] Comment on above: Order Comment: Order Added by Roma Expert. Performed By: #### 2 955425, 6562832, 2469617, 64042401, 6597907 ####[place] [place] [address] Lymphocytes/Leukocyte s Auto (Bld) [Pure # fraction] 2.8 E9/L Normal 1.0-4.0 [facility] Comment on above: Order Comment: Order Added by Roma Expert. Performed By: #### 2 785216, 8569588, 0213202, 61726821, 2919368 ####[address] [address] Monocytes/100 WBC (Bld) 9.4 % Normal 4.0-14.0 [facility] Comment on above: Order Comment: Order Added by Roma Expert. Performed By: #### 2 093058, 1640051, 7451155, 27754613, 5019502 ####[facility] [address] [place] [address] Monocytes/Leukocytes Auto (Bld) [Pure # fraction] 0.8 E9/L Normal 0.2-1.0 [facility] Comment on above: Order Comment: Order Added by Roma Expert. Performed By: #### 2 608411, 4120783, 5198472, 45004868, 2279792 ####[address] [place] [address] Neutrophils/100 WBC (Bld) 44.6 % Normal 36.0-75.0 [facility] Comment on above: Order Comment: Order Added by Discern Expert. Performed By: #### 2 596016, 4570608, 5012218, 54053330, 7842108 ####[address] [place] [address] Neutrophils/Leukocyte s Auto (Bld) [Pure # fraction] 3.5 E9/L Normal 2.0-7.5 [facility] Comment on above: Order Comment: Order Added by Discern Expert. Performed By: #### 2 069708, 1826158, 9814507, 53579849, 1878653 ####[address] [address] CBC w/ Auto Diffon 3 Erythrocyte distribution width (RBC) [Ratio] 13.6 % Normal 10.9-14.2 [facility] Comment on above: Performed By: #### 2 172132, 6396229, 4490082, 79590443, 6546216 ####[address] [address] Hematocrit (Bld) [Volume fraction] 39.5 % Normal 34.0-46.0 [facility] Comment on above: Performed By: #### 2 404936, 0860574, 4302571, 12090568, 6489072 ####[address] [address] Hemoglobin (Bld) [Mass/Vol] 13.3 g/dL Normal 12.0-16.0 [facility] Comment on above: Performed By: #### 2 090097, 7866285, 1367461, 47238201, 6959093 ####[address] [place] [address] MCH (RBC) [Entitic mass] 29.1 pg Normal 27.0-34.0 [facility] Comment on above: Performed By: #### 2 572601, 0426883, 6394806, 89546317, 9868750 ####[address] [address] MCHC (RBC) [Mass/Vol] 33.7 g/dL Normal 31.4-36.0 [facility] Comment on above: Performed By: #### 2 064056, 7958112, 0083574, 60052907, 0548934 ####[facility] [address] [place] [address] MCV (RBC) [Entitic vol] 86.4 fL Normal 80.0-100.0 [facility] Comment on above: Performed By: #### 2 549424, 8698162, 2721609, 66634749, 9784027 ####[address] [place] [id number] Platelet mean volume (Bld) [Entitic vol] 8.9 fL Normal 6.4-10.8 [facility] Comment on above: Performed By: #### 2 735933, 3597812, 3155371, 19243837, 2078002 ####[place] [address] Platelets (Bld) [#/Vol] 274.0 E9/L Normal 150.0-500.0 [facility] Comment on above: Performed By: #### 2 243934, 4917645, 5271462, 02631929, 1357969 ####[place] [address] RBC (Bld) [#/Vol] 4.6 E12/L Normal 4.3-5.9 [facility] Comment on above: Performed By: #### 2 215730, 0624012, 7158058, 82179927, 1271230 ####[address] [place] [address] WBC corrected for nucl RBC Auto (Bld) [#/Vol] 8.0 E9/L Normal 4.0-11.0 [facility] Comment on above: Performed By: #### 2 056010, 8709417, 1263503, 78131483, 2974354 ####[place] [id number] CHEMISTRYOrdered By: SYSTEM SYSTEM on 02-01-2023 Albumin [Mass/Vol] 4.0 g/dL Normal 3.3 - 5.0 gm/dL [facility] Albumin/Globulin [Mass ratio] 1.2 {ratio} Normal 1.1 - 2.2 [facility] ALP [Catalytic activity/Vol] 53 [iU]/d Normal 21 - 98 Int._Unit/L [facility] ALT No additional P-5'-P [Catalytic activity/Vol] 18 [iU]/d Normal 6 - 46 Int._Unit/L [facility] Anion gap [Moles/Vol] 13 mmol/L Normal 6 - 16 mEq/L [facility] AST [Catalytic activity/Vol] 18 [iU]/d Normal 5 - 43 Int._Unit/L [facility] Bilirubin [Mass/Vol] 0.4 mg/dL Normal 0.0 - 1 .1 mg/dL [facility] Calcium [Mass/Vol] 9.1 mg/dL Normal 8.9 - 11. 1 mg/dL [facility] Chloride [Moles/Vol] 106 mmol/L Normal 101 - 1 11 mmol/L [facility] CO2 [Moles/Vol] 24 mmol/L Normal 21 - 31 mmol/L [facility] Creatinine [Mass/Vol] 0.9 mg/dL Normal 0.5 - 1.3 mg/dL [facility] CRP [Mass/Vol] 0.7 mg/dL Normal <=1.9mg/dL [facility] Remis ol GFR/1.73 sq M.predicted among non-blacks MDRD (S/P/Bld) [Vol rate/Area] 80 mL/min/1.73 m2 Normal >=59mL/min/1 .73 m2 FT [facility] S Globulin (S) [Mass/Vol] 3.2 g/dL Normal 1.4 - 4.0 gm/dL [facility] Glucose [Mass/Vol] 99 mg/dL Normal 55 - 199 mg/dL [facility] Potassium [Moles/Vol] 3.9 mmol/L Normal 3.5 - 5.3 mmol/L [facility] Protein [Mass/Vol] 7.2 g/dL Normal 6.0 - 7.8 gm/dL [facility] [place] Remisol Sodium [Moles/Vol] 139 mmol/L Normal 135 - 145 mmol/L [facility] [place] Remisol Urea nitrogen [Mass/Vol] 15 mg/dL Normal 5 - 21 mg/dL [facility] [place] Remisol Urea nitrogen/Creatinine [Mass ratio] 17 mg/mg Normal 10 - 20 [facility] [place] Remisol CMPon 02-01-2023 Albumin [Mass/Vol] 4.0 g/dL Normal 3.3-5.0 [facility] Comment on above: Performed By: #### 2 102630, 5945304, 7078939, 65412176, 2975577 ####[facility] [address] [place] [address] Albumin/Globulin (S) [Mass conc ratio] 1.2 Normal 1.1-2.2 [facility] Comment on above: Performed By: #### 2 351577, 7880459, 7955904, 64091618, 1467289 ####[facility] [address] [place] [address] ALP [Catalytic activity/Vol] 53 Int._Unit/L Normal 21-98 [facility] Comment on above: Performed By: #### 2 192667, 6785236, 2665399, 88728013, 1579803 ####[facility] [address] [place] [address] ALT No additional P-5'-P [Catalytic activity/Vol] 18 Int._Unit/L Normal 6-46 [facility] Comment on above: Performed By: #### 2 799184, 7121331, 8982247, 49442686, 9187200 ####[facility] [address] [place] [address] Anion gap [Moles/Vol] 13 mmol/L Normal 6-16 [facility] Comment on above: Performed By: #### 2 414804, 8612160, 8640609, 39583447, 0339488 ####[facility] [address] [place] [address] AST [Catalytic activity/Vol] 18 Int._Unit/L Normal 5-43 [facility] Comment on above: Performed By: #### 2 418653, 1655857, 2661601, 71995068, 1220972 ####[facility] [address] [place] [address] Bilirubin [Mass/Vol] 0.4 mg/dL Normal 0.0-1.1 [facility] Comment on above: Performed By: #### 2 922904, 6997005, 9105331, 77636344, 9462674 ####[facility] [address] [place] [address] Calcium [Mass/Vol] 9.1 mg/dL Normal 8.9-11.1 [facility] Comment on above: Performed By: #### 2 823195, 4051642, 3235536, 26362191, 6319906 ####[facility] [address] [place] [address] Chloride [Moles/Vol] 106 mmol/L Normal 101-111 [facility] Comment on above: Performed By: #### 2 682765, 9814774, 6371578, 93017856, 2816568 ####[facility] [address] [place] [address] CO2 [Moles/Vol] 24 mmol/L Normal 21-31 [facility] Comment on above: Performed By: #### 2 436690, 3687035, 3730046, 11332975, 7414787 ####[facility] [address] [place] [address] Creatinine [Mass/Vol] 0.9 mg/dL Normal 0.5-1.3 [facility] Comment on above: Performed By: #### 2 614942, 0304719, 0173175, 37602271, 9950417 ####[facility] [address] [place] [address] Globulin (S) [Mass/Vol] 3.2 g/dL Normal 1.4-4.0 [facility] Comment on above: Performed By: #### 2 590990, 7112053, 7187556, 85857722, 9738168 ####[facility] [address] [place] [address] Glucose [Mass/Vol] 99 mg/dL Normal 55-199 [facility] Comment on above: Result Comment: If t his glucose result represents a fasting glucose, interpretation should refer to the following reference range: 55-99 mg/dL Performed By: #### 2 239774, 4883991, 5724394, 09941848, 1925639 ####[facility] [address] [place] [address] Potassium [Moles/Vol] 3.9 mmol/L Normal 3.5-5.3 [facility] Comment on above: Performed By: #### 2 146764, 3357399, 1207042, 36006465, 1303268 ####[facility] [address] [place] [address] Protein [Mass/Vol] 7.2 g/dL Normal 6.0-7.8 [facility] Comment on above: Performed By: #### 2 261493, 5827471, 0025525, 85859024, 5157496 ####[facility] [address] [place] [address] Sodium [Moles/Vol] 139 mmol/L Normal 135-145 [facility] Comment on above: Performed By: #### 2 966265, 5629428, 4941899, 30388904, 9495796 ####[facility] [address] [place] [address] Urea nitrogen [Mass/Vol] 15 mg/dL Normal 5-21 [facility] Comment on above: Performed By: #### 2 135681, 4318608, 9912177, 66589898, 5413595 ####[facility] [address] [place] [address] Urea nitrogen/Creatinine [Mass ratio] 17 No Units Normal 10-20 [facility] Comment on above: Performed By: #### 2 360324, 1557781, 1017652, 14983560, 4653073 ####[facility] [address] [place] [address] CRPon 02-01-2023 CRP [Mass/Vol] 0.7 mg/dL Normal <=1.9 [facility] Comment on above: Performed By: #### 2 481091, 2437769, 7468846, 27645061, 6937423 ####[facility] [address] [place] [address] Consent for Treatmenton Consent for Treatment [id number] #1.00CD:127 Normal [facility] HEMATOLOGYOrdered By: SYSTEM SYSTEM on 02-01-2023 Basophils/100 WBC (Bld) 2.7 % High 0.0 - 2.0 % [facility] HemeAutoSS Basophils/Leukocytes Auto (Bld) [Pure # fraction] 0.2 E9/L Normal 0.0 - 0.2 E9/L [facility] HemeAutoSS Eosinophils/100 WBC (Bld) 8.5 % High 0.0 - 8.0 % [facility] HemeAutoSS Eosinophils/Leukocyte s Auto (Bld) [Pure # fraction] 0.7 E9/L High 0.0 - 0.5 E9/L [facility] HemeAutoSS Lymphocytes/100 WBC (Bld) 34.8 % Normal 14.0 - 50.0 % [facility] HemeAutoSS Lymphocytes/Leukocyte s Auto (Bld) [Pure # fraction] 2.8 E9/L Normal 1.0 - 4.0 E9/L [facility] HemeAutoSS Monocytes/100 WBC (Bld) 9.4 % Normal 4.0 - 14.0 % [facility] HemeAutoSS Monocytes/Leukocytes Auto (Bld) [Pure # fraction] 0.8 E9/L Normal 0.2 - 1.0 E9/L [facility] HemeAutoSS Neutrophils/100 WBC (Bld) 44.6 % Normal 36.0 - 75.0 % [facility] HemeAutoSS Neutrophils/Leukocyte s Auto (Bld) [Pure # fraction] 3.5 E9/L [...] 8.0 E9/L Normal 4.0 - 11.0 E9/L [facility] HemeAutoSS eGFRon 02-01-2023 GFR/1.73 sq M.predicted among non-blacks MDRD (S/P/Bld) [Vol rate/Area] 80 mL/min/1.73 m2 Normal >=59 [facility] Comment on above: Order Comment: Order added by Discern Expert. Result Comment: Rubber Trimmer gail kidney disease could be indicated at eGFR's of less than 60 mL/min/1.73m2. Kidney failure is indicated at less than 15 mL/min/1.73m2. Performed By: #### 2 913329, 8554741, 5759041, 86957565, 1055397 ####[facility] [address] [place] [address] XR Abdomen 1 Viewon 01-07-20 23 XR [...] mGy = na DAP = na Normal [facility] Consent for Treatmenton 12-24 Consent for Treatment [id number] #1.00CD:127 Normal [facility] Outside Colonoscopyon 2022 Outside Colonoscopy [id number] #2.00CD:127 Normal [facility] CT Abdomen/Pelvis w/contrast (enterography)on 12-09-2022 CT Abdomen/Pelvis [...] kidney. Mild fullness of the right renal pelvis/pelviectasis with tapering at the UP junction. Bowel:Mild [...] Oral contrast amount in ml's: 1450 Normal [facility] Consent for Treatmenton 11-24 Consent for Treatment [id number] #1.00CD:127 Normal [facility] 36on 11-23-2022 36 Please let her know her ECHO was normal. I updated my note with clearance for her upcoming surgery. Please send to surgeons office. She should follow-up with an attending in 3 months or sooner if needed. Thanks Normal [facility] Telephoneon 11-23-2022 Telephone [id number] Stacey Sahu 1975 F Date Provider Department Center 11/23/[address] Family History Problem Relation Age of Onset Coronary artery disease Father Family Status - Relation Status Age at Father Normal [facility] ECHOCARDIO M/2D COMPLETEon 0 11-22-2022 ECHOCARDIO M/2D COMPLETE Patient: STACEY SAHU Exam Date: 11/22/2022 : 1975 Gender:F Ordering : CAN IwonaMaribel [facility] Admission #: [id number] Family : Order #: [id number] CLICK HERE TO VIEW EXAM ECHOCARDIOGRAM REPORT [...] Moran M.D. on 11/22/2022 at 17:44 Normal [facility] Office Visiton 11-08-2022 Follow-up visit [id number] Stacey Sahu Lisa 1975 F Date Provider Department Center 11/08/2022 Miguel-CAN VALERA [facility] Family History Problem Relation Age of Onset Coronary artery disease Father Family Status - Relation Status Age at Father Level of Service:76267 [place] OFFICE/OUTPATIENT NEW MODERATE MDM 45-59 MINUTES Reason for Visit and Comments: Re-establish care [Other] Pulmonary Hypertension [818] Normal [facility] US THYROID FN ASP BXon 10-28 THYROID FN ASP BX Begin Addendum #1 COLLECTED DATE/TIME: 10/18/2022 13:19 EDT Final Diagnosis Report for [place], [place] (A/B) SOFT TISSUE MASS CEPHALAD TO THYROID; FINE NEEDLE ASPIRATION: -ATYPIA OF UNDETERMINED SIGNIFICANCE. -CYST CONTENT. NOTE: Sparsely cellular aspirate compromised of follicular cells with architectural atypia. Molecular testing or a repeat aspirate may be helpful if clinically indicated. The final diagnosis is based on a microscopic exam of technical sales representatives sections. 10/25/[address] Caceres. 10/26/2022 [...] 2. Pathology results are pending. Normal [facility] XR KUB 1 VIEWon 10-27-2022 XR KUB [...] PAULETTE GALVAN Date: 2022-10-27 07:19 Normal [facility] CT NECK ST W CONon CT NECK [...] enhancement to thyroid gland. LYMPH NODES: No pathological-appeari ng or enlarged lymph nodes. VASCULATURE: No suspicious abnormality. BONES: No significant osseous lesions. OTHER: No additional imaging findings. IMPRESSION: 1. 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 2. Slightly heterogeneous appearance of thyroid gland; no suspicious nodules. Electronically authenticated by: PREET RODRIGEZ Date: 2022-10-05 08:22 [address] [facility] CARDIAC DENZEL ADMITon 023 CK [Catalytic activity/Vol] 149 U/L Normal 26-[address] [facility] Comment on above: Performed By: #### C MADM, LIPA, CMP ####[facility] [address] [place] [address]Dr. Nita Iverson CK.MB [Mass/Vol] 1.51 ng/mL Normal <=3.60 [facility] Comment on above: Performed By: #### C MADM, LIPA, CMP ####[facility] [address] [place] [address]Dr. Nita Ivesron HSTROP 4.1 pg/mL Normal 4.0-51.[address] [facility] Comment on above: Result Comment: CUT- OFF POINTS HAVE BEEN ESTABLISHED BASED ON THE FOURTH UNIVERSAL DEFINITIONS OF MYOCARDIAL INFARCTION. THE UPPER REFERENCE LIMIT (URL) OF TROPONIN, DEFINED THE 99TH PERCENTILE OF cTnI DISTRIBUTION IN A REFERENCE POPULATION, HAS BEEN CONFIRMED THE DECISION THRESHOLD FOR [place] DIAGNOSIS. Performed By: #### C MADM, LIPA, CMP ####[facility] [address] [place] [address]Dr. Nita Iverson ARIES 47 ng/mL Normal 9-[address] [facility] Comment on above: Performed By: #### C JANETH DENSONA, CMP ####[facility] [address] [place] [address]DrMaribel Iverson CBC AUTO DIFFon 09-21-2022 BASO # 0.1 103/ul Normal 0.0-0.1 [facility] Comment on above: Performed By: #### C BC #### [facility] [address] [place] [address] Dr. Nita Iverson Basophils/100 WBC (Bld) 0.8 % Normal 0.2-2.[address] [facility] Comment on above: Performed By: #### C BC #### [facility] [address] [place] [address] Dr. Nita Iverson EO # 0.7 103/ul Normal 0.0-0.[address] [facility] Comment on above: Performed By: #### C BC #### [facility] [address] [place] [address] Dr. Nita Iverson Eosinophils/100 WBC (Bld) 7.1 % Critically high 0.9-7.0 [facility] Comment on above: Performed By: #### C BC #### [facility] [address] [place] [address] Dr. Nita Iverson Erythrocyte distribution width (RBC) [Ratio] 12.3 % Normal 11.0-15.0 [facility] Comment on above: Performed By: #### C BC #### [facility] [address] [place] [address] Dr. Nita Iverson Hematocrit (Bld) [Volume fraction] 40.1 % Normal 36.0-48.0 [facility] Comment on above: Performed By: #### C BC #### [facility] [address] [place] [address] Dr. Nita Iverson Hemoglobin (Bld) [Mass/Vol] 13.6 g/dL Normal 12.0-16.0 [facility] Comment on above: Performed By: #### C BC #### [facility] [address] [place] [address] Dr. Nita Iverson IG # 0.02 10e3/ul Normal 0.00-0.03 [facility] Comment on above: Performed By: #### C BC #### [facility] [address] [place] [address] Dr. Nita Iverson IG % 0.2 % Normal 0.0-0.5 [facility] Comment on above: Performed By: #### C BC #### [facility] [address] [place] [address] Dr. Nita Iverson LYMPH # 3.0 103/ul Normal 1.2-3.[address] [facility] Comment on above: Performed By: #### C BC #### [facility] [address] [place] [address] Dr. Nita Iverson Lymphocytes/100 WBC (Bld) 30.2 % Normal 20.5-60.0 [facility] Comment on above: Performed By: #### C BC #### [facility] [address] [place] [address] Dr. Nita Iverson MANUAL DIFF REQ NO Normal [facility] Comment on above: Performed By: #### C BC #### [facility] [address] [place] [address] Dr. Nita Iverson MCH (RBC) [Entitic mass] 30.0 pg Normal 26.7-34.0 [facility] Comment on above: Performed By: #### C BC #### [facility] [address] [place] [address] Dr. Nita Iverson MCHC (RBC) [Mass/Vol] 33.9 g/dL Normal 29.9-35.2 [facility] Comment on above: Performed By: #### C BC #### [facility] [address] [place] [address] Dr. Nita Iverson MCV (RBC) [Entitic vol] 88.3 fL Normal 81.0-99.0 [facility] Comment on above: Performed By: #### C BC #### [facility] [address] [place] [address] Dr. Nita Iverson MONO # 0.8 103/ul Normal 0.3-0.8 [facility] Comment on above: Performed By: #### C BC #### [facility] [address] [place] [address] Dr. Nita Iverson Monocytes/100 WBC (Bld) 7.8 % Normal 1.7-12.0 [facility] Comment on above: Performed By: #### C BC #### [facility] [address] [place] [address] Dr. Nita Iverson NEUT # 5.4 103/ul Normal 1.4-6.5 [facility] Comment on above: Performed By: #### C BC #### [facility] [address] [place] [address] Dr. Nita Iverson Neutrophils/100 WBC (Bld) 53.9 % Normal 43.0-75.0 [facility] Comment on above: Performed By: #### C BC #### [facility] [address] [place] [address] Dr. Nita Iverson Platelet mean volume (Bld) [Entitic vol] 10.4 fL Normal 9.5-13.5 [facility] Comment on above: Performed By: #### C BC #### [facility] [address] [address] [address] Nita Iverson PLT 270 103/ul Normal 150-[address] [facility] Comment on above: Performed By: #### C BC #### [facility] [address] [address] [address] Nita Iverson RBC 4.54 106/ul Normal 4.20-5.40 [facility] Comment on above: Performed By: #### C BC #### [facility] [address] [address] [address] Nita Iverson WBC 10.0 103/ul Normal 4.0-11.0 [facility] Comment on above: Performed By: #### C BC #### [facility] [address] [place] [address] ABD/PELV W CONon [...] Lymph nodes: No abdominal or pelvic lymphadenopathy. Mesentery/Peritoneum : No ascites or mass. Retroperitoneum: No mass. [...] MISTY SPEARS Date: 2022-09-21 21:41 Normal [facility] ER URINE PROFILEon 3 Bilirubin Ql (U) Negative Normal NEGATIVE [facility] Comment on above: Performed By: #### U MICRO, ERUR, PREGU ####[facility] [address] [address]Dr. Nita Iverson Clarity (U) CLEAR Normal CLEAR [facility] Comment on above: Performed By: #### U MICRO, ERUR, PREGU ####[facility] [address] [address]Dr. Nita Iverson Color (U) LT. YELLOW Normal YELLOW [facility] Comment on above: Performed By: #### U MICRO, ERUR, PREGU ####[facility] [address] [address]Dr. Nita MARIEAHD A micrscopic examination will be performed if indicated. Normal [facility] Comment on above: Performed By: #### U MICRO, ERUR, PREGU ####[facility] [address] [address]Dr. Nita Iverson Glucose Ql (U) Negative Normal NEGATIVE The [facility] Comment on above: Performed By: #### U MICRO, ERUR, PREGU ####[facility] [address] [address]Dr. Nita Iverson Hemoglobin Ql (U) LARGE Abnormal NEGATIVE The [facility] Comment on above: Performed By: #### U MICRO, ERUR, PREGU ####[facility] [address] [place], [place] [address]Dr. Nita Iverson Ketones Ql (U) Negative Normal NEGATIVE [facility] Comment on above: Performed By: #### U MICRO, ERUR, PREGU ####[facility] [address] [address]Dr. Nita Iverson LEUKOCYTES Negative Normal NEGATIVE [facility] Comment on above: Performed By: #### U MICRO, ERUR, PREGU ####[facility] [address] [address]Dr. Nita Iverson Nitrite Ql (U) Negative Normal NEGATIVE [facility] Comment on above: Performed By: #### U MICRO, ERUR, PREGU ####[facility] [address] [address]Dr. Nita Iverson pH (U) 6.5 [pH] Normal 5-9 [facility] Comment on above: Performed By: #### U MICRO, ERUR, PREGU ####[facility] [address] [address]Dr. Nita Iverson SPEC GRAVITY 1.020 Normal 1.005-<=1.02 5 [facility] Comment on above: Performed By: #### U MICRO, ERUR, PREGU ####[facility] [address] [place], [place] [address]Dr. Nita Iverson UA PROTEIN Negative Normal NEGATIVE/ TRACE [facility] Comment on above: Performed By: #### U MICRO, ERUR, PREGU ####[facility] [address] [address]Dr. Nita Iverson UR MICRO IND INDICATED Normal [facility] Comment on above: Performed By: #### U MICRO, ERUR, PREGU ####[facility] [address] [address]Dr. Nita Iverson Urobilinogen Qn (U) 1.0 {Senait'U}/dL Normal 0.2 - 1. 0 [facility] Comment on above: Performed By: #### U MICRO, ERUR, PREGU ####[facility] [address] [address]DrMaribel Iverson LIPASEon 09-21-2022 Lipase [Catalytic activity/Vol] 89.0 U/L Normal 73.0-393.0 [facility] Comment on above: Performed By: #### C MADM, LIPA, CMP ####[facility] [address] [place], [place] [address]FsDr. Nita Iverson URon 09-21-2022 , QUAL Negative Normal NEGATIVE The [facility] Comment on above: Performed By: #### U MICRO, ERUR, PREGU ####[facility] [address] [place], [place] [address]WrDr. Nita Iverson PROF 14(COMP METB)on 023 Albumin [Mass/Vol] 3.5 g/dL Normal 3.4-5.0 [facility] Comment on above: Performed By: #### C MADM, LIPA, CMP #### [facility] [address] [address] [address] Nita Iverson Albumin/Globulin [Mass ratio] 1.0 {ratio} Normal [facility] Comment on above: Performed By: #### C MADM, LIPA, CMP #### [facility] [address] [address] [address] Nita Iverson ALP [Catalytic activity/Vol] 67 U/L Normal 46-116 [facility] Comment on above: Performed By: #### C MADM, LIPA, CMP #### [facility] [address] [address] [address] Nita Iverson ALT [Catalytic activity/Vol] 30 U/L Normal 14-59 [facility] Comment on above: Performed By: #### C MADM, LIPA, CMP #### [facility] [address] [address] [address] Nita Iverson Anion gap [Moles/Vol] 11.8 mmol/L Normal [facility] Comment on above: Performed By: #### C MADM, LIPA, CMP #### [facility] [address] [address] [address] Nita Iverson AST [Catalytic activity/Vol] 25 U/L Normal 15-37 [facility] Comment on above: Performed By: #### C JARETT LIPA, CMP #### [facility] [address] [address] [address] Nita Iverson Bilirubin [Mass/Vol] 0.3 mg/dL Normal 0.2-1.0 [facility] Comment on above: Performed By: #### C JARETT LIPA, CMP #### [facility] [address] [place] [address] Dr. Nita Iverson Calcium [Mass/Vol] 9.2 mg/dL Normal 8.5-10.1 [facility] Comment on above: Performed By: #### C JARETT LIPA, CMP #### [facility] [address] [place] [address] Dr. Nita Iverson Chloride [Moles/Vol] 106 mmol/L Normal 98-[address] [facility] Comment on above: Performed By: #### C JARETT LIPA, CMP #### [facility] [address] [place] [address] Dr. Nita Iverson CO2 [Moles/Vol] 28.7 mmol/L Normal 21.0-32.0 [facility] Comment on above: Performed By: #### C JARETT LIPA, CMP #### [facility] [address] [place] [address] Dr. Nita Iverson Creatinine [Mass/Vol] 0.81 mg/dL Normal 0.55-1.02 [facility] Comment on above: Performed By: #### C JARETT LIPA, CMP #### [facility] [address] [place] [address] Dr. Nita Iverson EGFR-AF PARAGUAYAN >60 Normal >=60 [facility] Comment on above: Performed By: #### C JARETT LIPA, CMP #### [facility] [address] [place] [address] Dr. Nita Iverson EGFR-NON AF PARAGUAYAN >60 Normal >=60 [facility] Comment on above: Performed By: #### C JARETT LIPA, CMP #### [facility] [address] [place] [address] Dr. Nita Ievrson Globulin (S) [Mass/Vol] 3.5 g/dL Normal [facility] Comment on above: Performed By: #### C JARETT LIPA, CMP #### [facility] [address] [address] [address] Nita Iverson Glucose [Mass/Vol] 106 mg/dL Normal 74-106 [facility] Comment on above: Performed By: #### C JARETT, LIPA, CMP #### [facility] [address] [address] [address] Nita Iverson Potassium [Moles/Vol] 4.5 mmol/L Normal 3.5-5.[address] [facility] Comment on above: Performed By: #### C MADMarita LIPA, CMP #### [facility] [address] [address] [address] Nita Iverson Protein [Mass/Vol] 7.0 g/dL Normal 6.4-8.2 [facility] Comment on above: Performed By: #### C MADM, LIPA, CMP #### [facility] [address] [address] [address] Nita Iverson Sodium [Moles/Vol] 142 mmol/L Normal 136-145 [facility] Comment on above: Performed By: #### C MADM, LIPA, CMP #### [facility] [address] [place] [address] Dr. Nita Iverson Urea nitrogen [Mass/Vol] 12.0 mg/dL Normal 7.0-18.[address] [facility] Comment on above: Performed By: #### C MADM, LIPA, CMP #### [facility] [address] [place] [address] Dr. Nita Iverson Urea nitrogen/Creatinine [Mass ratio] 14.8 mg/mg Normal [facility] Comment on above: Performed By: #### C MADM, LIPA, CMP #### [facility] [address] [place] [address] Dr. Nita Iverson URINE MICROSCOPIC ONLYon BACTERIA NONE SEEN Normal NONE SEEN [facility] Comment on above: Performed By: #### U MICRO, ERUR, PREGU ####[facility] [address] [address]Dr. Nita Iverson Bacteria identified Cx Nom (U) NOT INDICATED Normal [facility] Comment on above: Performed By: #### U MICRO, ERUR, PREGU ####[facility] [address] [address]Dr. Nita Iverson CAST NONE SEEN Normal NONE SEEN [facility] Comment on above: Performed By: #### U MICRO, ERUR, PREGU ####[facility] [address] [address]Dr. Nita Iverson Crystals LM Nom (Urine sed) NONE SEEN Normal NONE SEEN [facility] Comment on above: Performed By: #### U MICRO, ERUR, PREGU ####[facility] [address] [address]Dr. Nita Iverson Epithelial cells LM Ql (Urine sed) RARE Normal NONE SEEN /RARE [facility] Comment on above: Performed By: #### U MICRO, ERUR, PREGU ####[facility] [address] [address]Dr. Nita Iverson MUCOUS NONE SEEN Normal NONE SEEN [facility] Comment on above: Performed By: #### U MICRO, ERUR, PREGU ####[facility] [address] [address]Dr. Nita Iverson RBC 20-50 Abnormal 0-[address] [facility] Comment on above: Performed By: #### U MICRO, ERUR, PREGU ####[facility] [address] [address]Dr. Nita Iverson WBC 2-5 Abnormal NONE SEEN [facility] Comment on above: Performed By: #### U MICRO, ERUR, PREGU ####[facility] [address] [address]Dr. Nita Iverson US THYROIDon 09-06-2022 US THYROID [...] fine needle aspiration. Electronically authenticated by: PREET RDORIGEZ Date: 2022-09-06 20:19 Normal [facility] MRI HIP RT WO CONon 08-19-19 23 MRI HIP RT WO CON EXAM: MRI HIP RT WO CON HISTORY: Right hip pain COMPARISON: X-rays 07/07/2022 TECHNIQUE: Axial and coronal large ijkew-pm-zacd sequencing through the pelvis and both hips. Small iszuk-tc-jhjl coronal, sagittal and axial sequencing through the [...] at approximately the 11:00 position (coronal small wyhrn-vq-uzha 14). The remainder of the labrum exhibits no gross irregularity. The left acetabulum is normal. The bilateral femoral head and acetabular cartilage exhibits no chondral or osteochondral irregularity. The pubic symphysis and sacroiliac joints are normal. Thickening and interstitial edema of the right gluteus medius tendon insertion to the greater trochanter (coronal small cqowq-cw-nons 13 and axial large vrylt-dv-ldfy 23). Mild amount of adjacent edema. No abnormal bursal fluid collection. Questionable mild thickening and interstitial edema of the left gluteus minimus tendon (coronal large zoyke-mg-ykxg 17 and axial large ieehe-hs-dhqa 23 and to a lesser degree the gluteus medius tendon (coronal large zasrq-ge-ybxb 21). No tendon tear, tendon tear or [...] by: PAULETTE PHIPPS Date: 2022-08-18 22:39 Normal [facility] PAP ACOG PANEL 2: 30 to 65on 08-11-2022 . . Normal [facility] Comment on above: Result Comment: Perf ormed at: WB Performed By: #### [id number] ####[facility] [address] [id number]. Nita Iverson Age Gdln ACOG Testing 30-65 Normal [facility] Comment on above: Performed By: #### [id number] ####[facility] [address] [place], [place] [address]YvMaribel Iverson DIAGNOSIS: Comment Normal [facility] Comment on above: Result Comment: NEGA TIVE FOR INTRAEPITHELIAL LESION OR MALIGNANCY. Performed at: WB Performed By: #### 4 [id number] ####[facility] [address] [place], [place] [address]WhMaribel Iverson HPV Aptima Negative Normal Negative [facility] Comment on above: Result Comment: This nucleic acid amplification test detects fourteen high-risk HPV types (16,18,31,33,35,39,45,51,52,56,58,59,66,68) without differentiation. Performed at: =G Performed By: #### [id number] ####[facility] [address] [place], [place] [address]DrMaribel Iverson HPV Genotype Reflex Comment Normal [facility] Comment on above: Result Comment: Crit eria not met, HPV Genotype not performed. Performed at: WB Performed By: #### 4 [id number] ####[facility] [address] [place], [place] [address]Dr. Nita Iverson Methodology: Comment Normal [facility] Comment on above: Result Comment: This liquid based ThinPrep(R) pap test was screened with the use of an image guided system. Performed at: WB Performed By: #### 4 [id number] ####[address] [address]DrMaribel Iverson Note: Comment Normal [facility] Comment on above: Result Comment: The Pap smear is a screening test designed to aid in the detection of premalignant and malignant conditions of the uterine cervix. It is not a diagnostic procedure and should not be used as the sole means of detecting cervical cancer. Both false-positive and false-negative reports do occur. . Performed at: WB Performed By: #### 4 [id number] ####[facility] [address] [place], [place] [address]DrMaribel Iverson Performed by: Comment Normal [facility] Comment on above: Result Comment: Jordana Pruett, Cloud Developer (ASCP) Performed at: WB Performed By: #### 4 [id number] ####[facility] [address] [place], [place] [address]Dr. Nita Iverson Specimen adequacy: Comment Normal [facility] Comment on above: Result Comment: Sati sfactory for evaluation. No endocervical component is identified. Performed at: WB Performed By: #### 4 [id number] ####[facility] [address] [place], [place] [address]DrMaribel Iverson US PELVIS AND TRANSVAGon US PELVIS [...] by: PAULETTE GALVAN Date: 2022-06-06 17:51 Normal [facility] CT ABD/PELV WO W CONon 04-25 [...] by: PREET RODRIGEZ Date: 2022-04-25 08:09 Normal [facility] NM RENAL W_WO PHARMon 2021 NM [...] by: PAULETTE GALVAN Date: 2022-03-22 17:23 Normal [facility] XR KUB 1 VIEWon 03-22-2022 XR [...] by: PAULETTE GALVAN Date: 2022-03-22 17:57 Normal [facility] US THYROIDon 03-09-2022 US THYROID EXAMINATION: [...] IMPRESSION: Multinodular goiter, grossly stable TI-RADS: The [employer] TI-RADS committee's white paper recommendations for thyroid lesions classified as TR4 (moderately suspicious) are listed below: > 1.0 cm. Follow-up ultrasound in 1, 2, 3, and 5 years. > 1.5 cm. FNA. J. Am Rosendo Radiol 2017;14:587-595. Electronically authenticated by: PAULETTE GALVAN Date: 2022-03-09 07:[address] [facility] [address] ABD/PELV WO W CONon 03-07 [...] by: PREET RODRIGEZ Date: 2022-03-07 16:45 Normal [facility] CNOVon 02-21-2022 [facility] Office Visit (SILVERIO) SAHUSTACEY COLLINS ([id number]) 1975 F Date Time Provider Department 02/21/22 1:00 PM SHIRAZ BO During your visit today, we recorded the following information about you: Pulse Blood pressure Weight 76/minute 138/85 88.8 kg Shiraz Bo DO 03/13/2022 1:15 PM Signed [facility] - Medical Spine Initial [...] gel - no benefit Therapies PT at [facility] in [place] in June 2021 - 2 times per week for 1 month, exercises, TENS, ice - no relief Ice/heat Prior spine/MSK interventions: -12/31/21 Dr. Muñoz: R GTB CSI - minimal relief for 1 day. 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 Normal [facility] MG MAMM SCREEN 3D GRACIE CADon 02-09-2022 MG MAMM SCREEN 3D GRACIE CAD Patient: STACEY SAHU Exam Date: 02/09/2022 : 1975 Gender:F Ordering : NIURKA RYAN [facility] Admission #: [id number] Family : Order #: [id number] CLICK HERE TO VIEW EXAM RADIOLOGY REPORT [...] colon cancer at age 56. LOCATION: [facility] BREAST COMPOSITION: Scattered areas fibroglandular density. FINDINGS: [...] M.D. on 02/09/2022 at 14:53 Normal [facility] Covid-19 PCR (CVDTB)on SARS-CoV-2 (COVID-19) RNA IZAIAH+probe Ql (Unsp spec) Detected Critically abnormal NOT DETECTED [facility] Comment on above: Result Comment: This test is not yet approved or cleared by the [place] FDA. When there are no FDA-approved or cleared tests available, and other criteria are met, FDA can make tests available under an emergency access mechanism called an Emergency Use Authorization (EUA). The EUA for this test is supported by the [place] of Health and Human Service's declaration that [...] longer be used). Performed By: #### C [facility] #### [facility] [address] [place] [address] Dr. Nita Figueroa 01-17-2022 CNOV Office Visit (LOORRM) STACEY SAHU ([id number]) 1975 F Date Time Provider Department 01/17/22 3:30 PM BREEZY MUÑOZ During your visit today, we recorded the following information about you: Breezy Muñoz DO 01/17/2022 3:48 PM Signed SERVICE DATE: January 17, 2022 PCP: Essie Ryan, MANAGER SERVICE DESK, MANAGER SERVICE DESK Patient was self-referred. Subjective Patient ID: Stacey [...] Duration Units: Unknown Frequency: Continuous Intervention/Comfort measure: Reposition;Relaxatio n;Positioning;Heat;C old HPI TREATMENTS PRIOR TO INITIAL CONSULT: Right Corticosteroid Injection(s) Review of Systems ACTIVE PROBLEM LIST (spontaneous vaginal delivery) x 4 Crohn's disease without complication (HCC) [id number] Pulmonary Htn (Hcc) Obese Nirmala (Obstructive Sleep [...] Unknown Date Reviewed: 01/17/2022 Reviewed by: Nadja Fulton MA - Fully Assessed Reason for Visit: Follow Up [171] Primary Visit Diagnosis:Trochanter ic bursitis of right hip [M70.61] Other Visit Diagnosis: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 Normal [facility] CNOVon 12-31-2021 CNOV Office Visit (LOORRM) STACEY SAHU ([id number]) 1975 F Date Time Provider Department 12/31/21 1:00 PM BREEZY MUÑOZ During your visit today, we recorded the following information about you: Breezy Muñoz DO 12/31/2021 1:10 PM Signed SERVICE DATE: December 31, 2021 PCP: Essie Ryan, NIURKA, MANAGER SERVICE DESK Patient was self-referred. Subjective Patient ID: Stacey [...] x 4 Crohn's disease without complication (HCC) [id number] Pulmonary Htn (Hcc) Obese Nirmala (Obstructive Sleep [...] Care Vi (more content not included)... Normal [facility] MR femur RT wo/w conon 12-04 MR femur RT wo/w con [facility] Main [place] [address] [place] [address] MRI Report Signed Patient: Stacey Sahu MR#: [id number] 240 : 1975 Acct:[id number] Age/Sex: 46 / F ADM Date: 12/03/21 Loc: MR Room: Type: [facility] Attending Dr: Alexis Saenz II, MD [...] Stock Jr., M.D.12/04/2021 3:45 PM Dictation Location: [place] [address] Transcribed By: [facility] 12/04/21 1545 Dictated By: Breezy Stock Jr, MD 12/04/21 1519 Signed By: 12/04/21 1545 Normal [facility] XR femur RT 2V*on 11-17-2021 XR femur RT 2V* [facility] [place] [address] XRay Report Signed Patient: Stacey Sahu MR#: [id number] 240 : 1975 Acct:[id number] Age/Sex: 46 / F ADM Date: 11/17/21 Loc: [facility] Room: Type: [facility] Attending Dr: Alexis Saenz II, MD Ordering Provider: Alexis Saenz MD Date of Service: 11/17/21 XR/XR hip RT min 2V(w/wo pelvis)*: Right hip pain ([id number]) XR/XR femur RT 2V*: Right hip pain Copies to: Alexis Saenz MD 2 views RIGHT hip single view pelvisplain film COMPARISON:07/09/21 HISTORY:RIGHT hip pain for months. Worsening. No [...] Vipin Iniguez M.D.11/17/2021 3:56 PM Dictation Location: [place] [address] Transcribed By: [facility] 11/17/21 1556 Dictated By: Vipin Iniguez DO 11/17/21 1553 Signed By: 11/17/21 1556 [facility] Large Joint Arthro/Inj: R gr eater trochanteric bursa [facility] Vital Signs Date Time Vital Sign Value Performing Clinician Facility 11-28-2023 09:08-0400 Blood Pressure Location LESLIE JUNG [facility] 11-28-2023 09:08-0400 Diastolic blood pressure 84 mm[Hg] LESLIEANDER JUNG [facility] 11-28-2023 09:08-0400 Heart rate 82 /min LESLIE JUNG [facility] 11-28-2023 09:08-0400 Respiratory rate 16 /min LESLIEANDER JUNG [facility] 11-28-2023 09:08-0400 Systolic blood pressure 139 mm[Hg] LESLIEANDER JUNG [facility] 09-12-2023 07:42-0400 Diastolic blood pressure 103 mm[Hg] Imani [facility] Work Phone: [facility] 09-12-2023 07:42-0400 Heart rate 95 /min Imani Chan [employer] Work Phone: [facility] [employer] [facility] 09-12-2023 07:42-0400 Respiratory rate 18 /min Imani Chan [employer] Work Phone: [facility] [employer] [facility] 09-12-2023 07:42-0400 SaO2% (BldA) [Mass fraction] 99 % Imani Chan [employer] Work Phone: [facility] [employer] [facility] 09-12-2023 07:42-0400 Systolic blood pressure 136 mm[Hg] Imani Chan [employer] Work Phone: [facility] [employer] [facility] 06-28-2023 10:34-0500 Body height 149.9 cm Evans Verhoff PA-C Work Phone: [facility] [employer] [facility] 06-28-2023 10:34-0500 Body mass index (BMI) [Ratio] 38.78 kg/m2 Evans Verhoff PA-C Work Phone: [facility] [employer] [facility] 06-28-2023 10:34-0500 Body weight 87.09 kg Evans Verhoff PA-C Work Phone: [facility] [employer] [facility] 06-28-2023 10:34-0500 Diastolic blood pressure 107 mm[Hg] Evans Verhoff PA-C Work Phone: [facility] [employer] [facility] 06-28-2023 10:34-0500 Heart rate 93 /min [facility] 06-28-2023 10:34-0500 SaO2% (BldA) [Mass fraction] 97 % Evans Verhoff PA-C Work Phone: [facility] [employer] [facility] 06-28-2023 10:34-0500 Systolic blood pressure 139 mm[Hg] [facility] 05-29-2023 14:39-0500 Blood Pressure Location Jose GARCIA [facility] 05-29-2023 14:39-0500 Diastolic blood pressure 83 mm[Hg] Jose GARCIA [facility] 05-29-2023 14:39-0500 Heart rate 88 /min Jose GARCIA [facility] 05-29-2023 14:39-0500 Respiratory rate 16 /min Jose GARCIA [facility] 05-29-2023 14:39-0500 Systolic blood pressure 131 mm[Hg] Jose GARCIA [facility] 11-24-2022 13:48-0400 Diastolic blood pressure 106 mm[Hg] Beth SALAM [facility] 11-24-2022 13:48-0400 Mean blood pressure 121 mm[Hg] Beth SALAM [facility] 11-24-2022 13:48-0400 Systolic blood pressure 152 mm[Hg] Beth SALAM [facility] 11-24-2022 13:46-0400 Blood Pressure Location Beth SALAM [facility] 11-24-2022 13:46-0400 Diastolic blood pressure 118 mm[Hg] Beth SALAM [facility] 11-24-2022 13:46-0400 Heart rate 80 /min Beth SALAM [facility] 11-24-2022 13:46-0400 Respiratory rate 16 /min Beth SALAM [facility] 11-24-2022 13:46-0400 Systolic blood pressure 161 mm[Hg] Ignacia KHAN [facility] 04-26-2022 12:03-0400 Blood Pressure Location Jose GARCIA [facility] 04-26-2022 12:03-0400 Diastolic blood pressure 95 mm[Hg] Jose GARCIA [facility] 04-26-2022 12:03-0400 Heart rate 102 /min Jose GARCIA [facility] 04-26-2022 12:03-0400 Systolic blood pressure 141 mm[Hg] Jose GARCIA [facility] 02-21-2022 12:39-0400 Body weight 88.81 kg Shiraz Bo DO Work Phone: [facility] 02-21-2022 12:39-0400 Diastolic blood pressure 85 mm[Hg] Shiraz Mendis DO Work Phone: [facility] 02-21-2022 12:39-0400 Heart rate 76 /min Shiraz Sykesis DO Work Phone: [facility] 02-21-2022 12:39-0400 Systolic blood pressure 138 mm[Hg] Shiraz Mendis DO Work Phone: [facility] 12-09-2021 09:00-0400 Body height 160.02 cm Alexis Saenz II Other [facility] Other 12-09-2021 09:00-0400 Body mass index (BMI) [Ratio] 34.47 kg/m2 Alexis Saenz II Other [facility] Other 12-09-2021 09:00-0400 Body weight 88.27 kg Alexis Saenz II Other [facility] Other 11-17-2021 15:30-0400 Body height 160.02 cm Alexis Saenz II Other [facility] Other 11-17-2021 15:30-0400 Body mass index (BMI) [Ratio] 32.41 kg/m2 Alexis Saenz II Other [facility] Other 11-17-2021 15:30-0400 Body weight 83.01 kg Alexis Saenz II Other [facility] Other Encounters Encounter Date Encounter Type Care Provider Facility Start: 12-13-2023 End: 12-14-2023 ambulatory JOSIAS LOPEZ Not Available Start: 12-11-2023 End: 12-13-2023 ambulatory TINO HEATHY Not Available Start: 12-04-2023 End: 12-05-2023 ambulatory TINO HEATHY Not Available Start: 11-30-2023 End: 12-01-2023 ambulatory TINO VALDEZBLEY Not Available Start: 11-28-2023 End: 11-29-2023 ambulatory JOSIAS LOPEZ Not Available Start: 11-28-2023 End: 11-28-2023 ambulatory LESLIE JUNG Facility:[facility] Start: 11-28-2023 End: 11-28-2023 Patient encounter procedure LESLIE JUNG [facility] Start: 11-23-2023 End: 11-24-2023 ambulatory KOLE FULTON Not Available Start: 11-21-2023 End: 11-22-2023 ambulatory JAMIE RANDHAWA Not Available Start: 11-16-2023 End: 11-16-2023 ambulatory JAMIE RANDHAWA Not Available Start: 11-08-2023 End: 11-08-2023 ambulatory SHAIKH CHRISTOPHER Not Available Start: 11-08-2023 End: 11-08-2023 ambulatory JANET MODI Not Available Start: 10-25-2023 End: 10-25-2023 ambulatory SHAIKH CHRISTOPHER Not Available Start: 09-28-2023 End: 09-28-2023 ambulatory ESSIE AICHHOLZ Not Available Start: 09-20-2023 Telephone encounter Nora FROST [facility] Start: 09-12-2023 End: 09-12-2023 ambulatory [facility] Start: 09-12-2023 End: 09-12-2023 Office outpatient visit [address] [facility] [employer] Work Phone: [facility] Comment on above: Chronic right hip pa in (Primary Dx) Start: 09-06-2023 End: 09-06-2023 ambulatory NEDA CACERES Not Available Start: 09-01-2023 End: 09-02-2023 ambulatory PJ GANNON [facility] Start: 08-26-2023 End: 08-26-2023 ambulatory MARY DANIELS Not Available Start: 08-21-2023 End: 08-21-2023 ambulatory [facility] Start: 07-13-2023 End: 07-13-2023 ambulatory ESSIE AICHHOLZ Not Available Start: 07-11-2023 End: 07-11-2023 ambulatory Juliana Block Other [facility] Other Start: 07-11-2023 Office outpatient vi sit 25 minutes Juliana Block [facility] Start: 07-04-2023 End: 07-04-2023 ambulatory ESSIE AICHHOLZ Not Available Start: 06-28-2023 End: 06-28-2023 ambulatory EVANS ANDERSON [facility] Start: 06-28-2023 End: 06-28-2023 Office outpatient visit 15 minutes Evans PETERSC Work Phone: [facility] Comment on above: Lumbar radiculopathy (Primary Dx) Start: 05-29-2023 End: 05-29-2023 ambulatory Jose Javy JOSE Facility: [facility] Start: 05-29-2023 End: 05-29-2023 Patient encounter procedure Jose Palafox GARCIA [facility] Start: 05-10-2023 End: 05-10-2023 ambulatory NEDA CACERES Not Available Start: 02-02-2023 End: 02-02-2023 [facility] Start: 02-02-2023 End: 02-02-2023 [facility] [place] Start: 02-02-2023 End: 02-02-2023 Lab Drop off Beth SALAM [facility] Start: 02-01-2023 End: 02-01-2023 ambulatory Beth SALAM Facility:[facility] [place] [facility] Start: 02-01-2023 End: 02-01-2023 Patient encounter procedure Beth SALAM [facility] Start: 01-05-2023 End: 01-05-2023 ambulatory Beth SALAM Facility:[facility] [place] [facility] Start: 01-03-2023 End: 01-03-2023 ambulatory Beth SALAM Facility:CD:[id number] Start: 12-06-2022 End: 12-06-2022 ambulatory Beth SALAM Facility:[facility] [place] Start: 12-06-2022 End: 12-06-2022 Patient encounter procedure Beth SALAM [facility] Start: 11-24-2022 End: 11-24-2022 Patient encounter procedure Beth SALAM [facility] Start: 11-22-2022 End: 11-23-2022 ambulatory CAN HERSCHER Facility:[facility] Start: 11-08-2022 End: 11-08-2022 ambulatory [facility] Start: 11-08-2022 End: 11-08-2022 Encounter for preprocedural cardiovascular examination [facility] Start: 11-08-2022 ambulatory NARENDRANMONA LAKSHMIPATHY . Facility:[facility] Start: 10-26-2022 End: 10-27-2022 ambulatory NIURKA RYAN Facility:[facility] Start: 10-18-2022 End: 10-18-[address] NEDA CACERES Facility:[facility] Start: 10-04-2022 End: 10-05-[address] NEDA CACERES Facility:[facility] Start: 09-21-2022 End: 09-22-2022 ambulatory EDNA MCRAE [...] encounter procedure Jose GARCIA [facility] Start: 04-22-2022 End: 04-23-2022 ambulatory NIURKA RYAN Facility:[facility] Start: 03-29-2022 End: 03-30-[address] MARKO MORALES . Facility:[facility] Start: 03-22-2022 End: 03-23-2022 ambulatory NIURKA RYAN Facility:[facility] Start: 03-22-2022 End: 03-23-[address] MARKO MORALES . Facility:[facility] Start: 03-08-2022 End: 03-09-[address] NEDA CACERES Facility:[facility] Start: 03-08-2022 End: 03-08-2022 Patient encounter procedure Jose GARCIA [facility] Start: 03-07-2022 End: 03-08-2022 ambulatory NIURKA RYAN Facility:[facility] Start: 02-21-2022 End: 02-21-2022 ambulatory ESSIE RYAN Facility:[facility] Start: 02-21-2022 End: 02-21-2022 Patient encounter procedure Shiraz Bo DO Work Phone: Spine Medicine Comment on above: Tendinopathy of righ t gluteal region (Primary Dx); Trochanteric bursitis of right hip; Chronic bilateral low back pain without sciatica; Lumbar spondylosis Start: 02-09-2022 End: 02-10-2022 ambulatory NIURKA RYAN Facility:[facility] Start: 01-24-2022 End: 01-24-2022 ambulatory NIURKA RYAN Facility:[facility] Start: 01-17-2022 End: 01-17-2022 ambulatory ESSIE RYAN Facility:[facility] Start: 01-17-2022 End: 01-17-2022 Patient encounter procedure Breezy Muñoz DO Work Phone: Orthopaedics Comment on above: Trochanteric bursiti s of right hip (Primary Dx); Lumbago-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 Start: 01-05-2022 End: 01-05-2022 ambulatory Alexis Saenz II Other [facility] Other Start: 01-05-2022 Telephone encounter Alexis Yancey II [facility] Start: 12-31-2021 End: 12-31-2021 ambulatory BREEZY MUÑOZ Facility:[facility] Start: 12-31-2021 End: 12-31-2021 Patient encounter procedure Breezy Muñoz DO Work Phone: Orthopaedics Comment on above: Trochanteric bursiti s of right hip (Primary Dx) Start: 12-09-2021 End: 12-09-2021 ambulatory Alexis Yancey II Other [facility] Other Start: 12-09-2021 Office outpatient vi sit 25 minutes Alexis Yancey II [facility] Start: 11-17-2021 End: 11-17-2021 ambulatory Alexis Yancey II Other [facility] Other Start: 11-17-2021 Office outpatient ne w 45 minutes Alexis Yancey II [facility] Start: 06-02-2017 End: 06-03-2017 Ambulatory DEFAULT PHYSICIAN [facility] Start: 05-15-2017 End: 05-16-2017 Ambulatory DEFAULT PHYSICIAN [facility] Start: 05-01-2017 End: 05-02-2017 Ambulatory DEFAULT PHYSICIAN [facility] Procedures Date Procedure Procedure Detail Performing Clinician [...] (1 of 3 - Risk 3-dose series) [facility] Start: 09-11-2024 Tobacco Screening Tobacco Screening [facility] Start: 08-21-2024 Adult BMI Screening Adult BMI Screening [facility] Start: 06-28-2024 Adult BMI Screening Adult BMI Screening [facility] Start: 06-28-2024 Tobacco Screening Tobacco Screening [facility] Start: 12-15-2023 DIABETES SCREEN DIABETES SCREEN [facility] Start: 08-30-2023 End: 08-30-2023 Patient encounter procedure 08/30/2023 8:15 AM EST Office Visit [facility] [address] [place] [id number] Evans Anderson, PAAllan [address] [facility] [place] [address] [facility] Start: 02-24-2023 Influenza vaccination Influenza Vaccine [facility] Start: 02-14-2023 Adult depression screening assessment DEPRESSION SCREENING [facility] Start: 02-24-2022 Influenza vaccination INFLUENZA (#1) [facility] Start: 12-15-2021 Colonoscopy COLONOSCOPY [facility] Start: 12-15-2021 COLORECTAL CANCER SCREENING COLORECTAL CANCER SCREENING [facility] Start: 2021 COLOGUARD (FIT-DNA) COLOGUARD (FIT-DNA) [facility] Start: [address] COLONOGRAPHY [facility] Start: 2021 FECAL OCCULT BLOOD FECAL OCCULT BLOOD [facility] Start: 2021 LIPID SCREEN LIPID SCREEN [facility] Start: 2021 SIGMOIDOSCOPY SIGMOIDOSCOPY [facility] Start: 2016 Mammography MAMMOGRAM [facility] Start: 2006 HPV TESTING HPV TESTING [facility] Start: 1997 PAP TESTING PAP TESTING [facility] Start: 1995 DTaP,Tdap and Td Vaccines (1 - Tdap) DTaP,Tdap and Td Vaccines (1 - Tdap) [facility] Start: 1995 HEPATITIS B (1 of 3 - Risk 3-dose series) HEPATITIS B (1 of 3 - Risk 3-dose series) [facility] Start: 1995 Urine microalbumin profile DTAP,TDAP,TD (1 - Tdap) [facility] Start: 1994 Adult BMI Follow Up Plan Adult BMI Follow Up Plan [facility] Start: 1994 HIV SCREENING HIV SCREENING [facility] Start: 1994 MMR (1 of 2 - Risk 2-dose series) MMR (1 of 2 - Risk 2-dose series) [facility] Start: 1988 Adult depression screening assessment DEPRESSION SCREENING [facility] Start: 1986 MENINGOCOCCAL B: Consider based on risk (1 of 4 - Increased Risk Bexsero 2-dose series) MENINGOCOCCAL B: Consider based on risk (1 of 4 - Increased Risk Bexsero 2-dose series) [facility] Start: 1977 HEPATITIS A (1 of 2 - Risk 2-dose series) HEPATITIS A (1 of 2 - Risk 2-dose series) [facility] Start: 1976 COVID-19 VACCINE (#1) COVID-19 VACCINE (#1) [facility] Immunizations Immunization Date Immunization Notes Care Provider Kati swift 05-03-2012 influenza, whole Jose WOOTEN [facility] 05-03-2012 influenza virus vaccine, unspecified formulation Evans Anderson PA-C Work Phone: [facility] Payers Date Payer Category Payer Private Health Insurance [facility] [id number] 2022-Present [phone] [address] [place] [address] [id number] 2020 Medicaid [facility] MEDICAID [facility] [employer] MEDICAID [id number] 2020-Present [phone] [address] [place] [address] Medicaid [id number] 2020 Medicaid [facility] MEDICAID [facility] COMMUNITY PLAN MEDICAID OF [place] [id number] 2020-Present [phone] [address] [place] [address] Medicaid [id number] 1976 Unknown [id number] 2.16.840.1.144832.3.579. 2.593 1976 Unknown [id number] 2.16.840.1.195461.3.579. 2.593 1976 Unknown [id number] 2.16.840.1.151903.3.579. 2.593 1976 Unknown [id number] 2.16.840.1.790968.3.579. 2.593 1976 Unknown [id number] 2.16.840.1.941807.3.579. 2.593 1976 Unknown [id number] 2.16.840.1.891623.3.579. 2.593 1976 Unknown [id number] 2.16.840.1.944463.3.579. 2.593 1976 Unknown [id number] 2.16.840.1.357042.3.579. 2.593 1976 Unknown [id number] 2.16.840.1.547332.3.579. 2.593 1976 Unknown [id number] 2.16.840.1.653936.3.579. 2.593 1976 Unknown [id number] 2.16.840.1.247449.3.579. 2.593 1976 Unknown [id number] 2.16.840.1.190223.3.579. 2.593 1976 Unknown [id number] 2.16.840.1.102077.3.579. 2.593 1976 Unknown [id number] 2.16.840.1.240510.3.579. 2.593 1976 Unknown [id number] 2.16.840.1.412638.3.579. 2.593 1976 Unknown [id number] 2.16.840.1.197552.3.579. 2.593 1976 Unknown [id number] 2.16.840.1.612172.3.579. 2.593 1976 Unknown [id number] 2.16.840.1.640258.3.579. 2.593 1976 Unknown [id number] 2.16.840.1.390208.3.579. 2.593 1976 Unknown [id number] 2.16.840.1.958940.3.579. 2.593 1976 Unknown [id number] 2.16.840.1.852952.3.579. 2.593 1976 Unknown [id number] 2.16.840.1.533872.3.579. 2.593 1976 Unknown [id number] 2.16.840.1.590518.3.579. 2.593 1976 Unknown [id number] 2.16.840.1.998750.3.579. 2.1286 1976 Unknown [id number] 2.16.840.1.151567.3.579. 2.1286 1976 Unknown [id number] 2.16.840.1.853814.3.579. 2.1286 1976 Unknown [id number] 2.16.840.1.276919.3.579. 2.1286 1976 Unknown [id number] 2.16.840.1.763571.3.579. 2.1286 1976 Unknown [id number] 2.16.840.1.469007.3.579. 2.727 1976 Unknown [id number] 2.16.840.1.941161.3.579. 2.727 1976 Unknown [id number] 2.16.840.1.440843.3.579. 2.727 1976 Unknown [id number] 2.16.840.1.681614.3.579. 2.727 1976 Unknown [id number] 2.16.840.1.773711.3.579. 2.727 1976 Unknown [id number] 2.16.840.1.735286.3.579. 2.727 1976 Unknown [id number] 2.16.840.1.699101.3.579. 2.727 1976 Unknown [id number] 2.16.840.1.157721.3.579. 2.727 1976 Unknown [id number] 2.16.840.1.144268.3.579. 2.1259 1976 Unknown [id number] 2.16.840.1.045288.3.579. 2.1259 1976 Unknown [id number] 2.16.840.1.028844.3.579. 2.1259 1976 Unknown [id number] 2.16.840.1.371681.3.579. 2.1259 1976 Unknown [id number] 2.16.840.1.232411.3.579. 2.9 1976 Unknown [id number] 2.16.840.1.914825.3.579. 2.9 1976 Unknown [id number] 2.16.840.1.576275.3.579. 2.1259 1976 Unknown [id number] 2.16.840.1.254557.3.579. 2.9 1976 Unknown [id number] 2.16.840.1.457278.3.579. 2.9 1976 Unknown [id number] 2.16.840.1.022006.3.579. 2.9 1976 Unknown [id number] 2.16.840.1.651769.3.579. 2.9 1976 Unknown [id number] 2.16.840.1.888081.3.579. 2.1258 1976 Unknown [id number] 2.16.840.1.340489.3.579. 2.9 1976 Unknown [id number] 2.16.840.1.467550.3.579. 2.9 1976 Unknown [id number] 2.16.840.1.947500.3.579. 2.9 1976 Unknown [id number] 2.16.840.1.215454.3.579. 2.9 1976 Unknown [id number] 2.16.840.1.852502.3.579. 2.1259 1959 Unknown [id number] 2.16.840.1.601142.19 1959 Unknown [id number] Unknown Social History Date Type Detail Facility Start: 08-06-2020 End: 06-28-2023 Sex Assigned At [facility] Other Start: 07-27-2016 End: 11-28-2023 Tobacco smoking status NHIS Never smoked tobacco [facility] Start: 07-27-2016 End: 04-12-2023 Tobacco use and exposure Smokeless tobacco non-user [facility] Start: 12-15-2020 End: 09-12-2023 Alcohol intake Current non-drinker of alcohol (finding) [facility] Start: 1975 Sex Assigned At Not on file [facility] Start: 01-07-2022 End: 02-21-2022 Exposure to SARS-CoV-2 (event) Not sure [facility] Tobacco Past [facility] Comment on above: stopped 12 years ago stopped 12 years ago Tobacco smoking status No Smoking Status Entered [facility] Tobacco smoking status Never [facility] Start: 08-06-2020 End: 06-28-2023 History of Social function [facility] Functional Status Date Assessment Result Facility 11-28-2023 Functional Status N/A [facility] 05-29-2023 Functional Status N/A [facility] 11-24-2022 Functional Status N/A [facility] 04-26-2022 Functional Status N/A [facility] Clinical Notes 12-14-2020 to 11-28-2023 Telephone Encounter - Nora Garza CNA - 09/20/2023 2:53 PM EDTTelephone Encounter - Nora Garza CNA - 09/20/2023 2:53 PM Samantha Chan APRN-NIURKA - 09/12/2023 7:45 AM EDT Note Date & Type Note Facility 11-28-2023 Hospital Discharg e instructions Patient Education 11/28/2023 09:06:15 Dietary Guidelines to Help Prevent Kidney Stones Dietary Guidelines to Help Prevent Kidney Stones Kidney stones are deposits of minerals and salts that form inside your kidneys. Your risk of developing kidney stones may be greater depending on your diet, your lifestyle, the medicines you take, and whether you have certain medical conditions. Most people can lower their risks of developing kidney stones by following these dietary guidelines. Your dietitian may give you more specific instructions depending on your overall health and the type of kidney stones you tend to develop. What are tips for following this plan? Reading food labels Choose foods with no salt added or low-salt labels. Limit your salt (sodium) intake to less than 1,500 mg a day. Choose foods with calcium for each meal and snack. Try to eat about 300 mg of calcium at each meal. Foods that contain 200 500 mg of calcium a serving include: ?8 oz (237 mL) of milk, sratyhu-glzqiykxnonz-reguo milk, and calcium-fortifiedfruit juice. Calcium-fortified means that calcium has been added to these drinks. ?8 oz (237 mL) of kefir, yogurt, and soy yogurt. ?4 oz (114 g) of tofu. ?1 oz (28 g) of cheese. ?1 cup (150 g) of dried figs. ?1 cup (91 g) of cooked broccoli. ?One 3 oz (85 g) can of sardines or mackerel. Most people need 1,000 1,500 mg of calcium a day. Talk to your dietitian about how much calcium is recommended for you. Shopping Buy plenty of fresh fruits and vegetables. Most people do not need to avoid fruits and vegetables, even if these foods contain nutrients that may contribute to kidney stones. When shopping for convenience foods, choose: ?Whole pieces of fruit. ?Pre-made salads with dressing on the side. ?Low-fat fruit and yogurt smoothies. Avoid buying frozen meals or prepared deli foods. These can be high in sodium. Look for foods with live cultures, such as yogurt and kefir. Choose high-fiber grains, such as whole-wheat breads, oat bran, and wheat cereals. Cooking Do not add salt to food when cooking. Place a salt shaker on the table and allow each person to add their own salt to taste. Use vegetable protein, such as beans, textured vegetable protein (TVP), or tofu, instead of meat in pasta, casseroles, and soups. Meal planning Eat less salt, if told by your dietitian. To do this: ?Avoid eating processed or pre-made food. ?Avoid eating fast food. Eat less animal protein, including cheese, meat, poultry, or fish, if told by your dietitian. To do this: ?Limit the number of times you have meat, poultry, fish, or cheese each week. Eat a diet free of meat at least 2 days a week. ?Eat only one serving each day of meat, poultry, fish, or seafood. ?When you prepare animal proteins, cut pieces into small portion sizes. For most meat and fish, one serving is about the size of the palm of your hand. Eat at least five servings of fresh fruits and vegetables each day. To do this: ?Keep fruits and vegetables on hand for snacks. ?Eat one piece of fruit or a handful of berries with breakfast. ?Have a salad and fruit at lunch. ?Have two kinds of vegetables at dinner. You may be told to limit foods that are high in a substance called oxalate. These include: ?Spinach (cooked), rhubarb, beets, sweet potatoes, and [place] chard. ?Peanuts. ?Potato chips, ukrainian fries, and baked potatoes with skin on. ?Nuts and nut products. ?Chocolate. If you regularly take a diuretic medicine, make sure to eat at least 1 or 2 servings of fruits or vegetables that are high in potassium each day. These include: ?Avocado. ?Banana. ?Rosebud, prune, carrot, or tomato juice. ?Baked potato. ?Cabbage. ?Beans and split peas. Lifestyle Drink enough fluid to keep your urine pale yellow. This is the most important thing you can do. Spread your fluid intake throughout the day. If you drink alcohol: ?Limit how much you have to: ?0 1 drink a day for women who are not . ?0 2 drinks a day for men. ?Know how much alcohol is in your drink. In the [place] one drink equals one 12 oz bottle of beer (355 mL), one 5 oz glass of wine (148 mL), or one 1 oz glass of hard liquor (44 mL). Lose weight if told by your health care provider. Work with your dietitian to find an eating plan and weight loss strategies that work best for you. General information Talk to your health care provider and dietitian about taking daily supplements. Depending on your health and the cause of your kidney stones, you may be told: ?Do not take high-dose supplements of vitamin C (1,000 mg a day or more). ?To take a calcium supplement. ?To take a daily probiotic supplement. ?To take other supplements such as magnesium, fish oil, or vitamin B6. Take zoau-npc-vqyozbo and prescription medicines only as told by your health care provider. These include supplements. What foods should I limit? Limit your intake of the following foods, or eat them as told by your dietitian. Vegetables Spinach. Rhubarb. Beets. Canned vegetables. Pickles. Olives. Baked potatoes with skin. Grains Wheat bran. Baked goods. Salted crackers. Cereals high in sugar. Meats and other proteins Nuts. Nut butters. Large portions of meat, poultry, or fish. Salted, precooked, or cured meats, such as sausages, meat loaves, and hot dogs. Dairy Cheeses. Beverages Regular soft drinks. Regular vegetable juice. Seasonings and condiments Seasoning blends with salt. Salad dressings. Soy sauce. Ketchup. Barbecue sauce. Other foods Canned soups. Canned pasta sauce. Casseroles. Pizza. Lasagna. Frozen meals. Potato chips. Frisian fries. The items listed above may not be a complete list of foods and beverages you should limit. Contact a dietitian for more information. What foods should I avoid? Talk to your dietitian about specific foods you should avoid based on the type of kidney stones you have and your overall health. Fruits Grapefruit. The item listed above may not be a complete list of foods and beverages you should avoid. Contact a dietitian for more information. Summary Kidney stones are deposits of minerals and salts that form inside your kidneys. You can lower your risk of kidney stones by making changes to your diet. The most important thing you can do is drink enough fluid. Drink enough fluid to keep your urine pale yellow. Talk to your dietitian about how much calcium you should have each day, and eat less salt and animal protein as told by your dietitian. This information is not intended to replace advice given to you by your health care provider. Make sure you discuss any questions you have with your health care provider. Document Revised: 09/22/2022 Document Reviewed: 09/22/2022 Tagent Patient Education 2022 [employer]. Follow Up Care 05/29/2023 15:22:48 With:LESLIE JUNG PA-C, URL Address: [address] [place] [address] When: Unknown [facility] 11-28-2023 Note - From: Sally Linda To: EU - Administrative; Sent: 11/28/2023 09:53:09 EDT Show up: 02/25/2024 09:52:00 EDT Subject: Ambulatory Reminder Due Date/Time: 11/24/2024 09:53:00 EDT Reminder/Recall Patient needs scheduled for a 1 yr f/u with KURose Mary and BEN with DA, due in 11/2024 [facility] 09-20-2023 Miscellaneous Notes [facility] Ortho called to say that they are out of network for Stacey's insurance. A referral form will be sent once she selects an orthopedic in-network documented in this encounter [facility] 09-20-2023 Telephone encounter Note [facility] called to say that they are out of network for Stacey's insurance. A referral form will be sent once she selects an [facility]opedic [facility]23 History of Presen t illness Narrative [facility] [address] [place] [address] Patient: Stacey Sahu Sex: female : 1975 Age: 48 y.o. PCP: ESSIE RYAN, SOCK DRIER-MANAGER SERVICE DESK 09/12/2023 Stacey Sahu is here for a(n) [...] Medical History: Diagnosis Date Arthritis Bipolar disorder ([facility]) Chronic pain disorder Crohn's colitis ([facility]) Depression GERD (gastroesophageal reflux disease) H/O methicillin resistant Staphylococcus aureus infection Hyperlipidemia Joint pain Pleurisy Pulmonary hypertension ([facility]) Pulmonary hypertension ([facility]) Sleep apnea cpap Past Surgical History: Procedure Laterality Date COLON SURGERY part of bowel removed d/t crohns dx HYSTERECTOMY 2017 INJECTION BURSA LARGE JOINT Right Hip Right 09/01/2023 Performed by Pj Gannon MD at [facility] INJE[facility] SPINE TRANSFORAMINAL Right L 5,1 Nroot Right 05/26/2023 Performed by Pj Gannon MD at [facility] RELEASE DEQUERVAINS CONTRACTURE Right 10/17/2018 Performed by Dereck Bagley DO at [facility] THYROIDECTOMY, PARTIAL Allergies Allergen Reactions Penicillins [...] while taking medications prescribed by this clinic. [facility] Orthopedic Referral - Right Hip [...] in this encounter [facility] 07-11-2023 Evaluation note Encounter Date Diagnosis Assessment [...] treatment plan. Patient left in stable condition [facility] Other 01-03-2024 History of Present illness Narrative* Evans Anderson PA-C - 06/28/2023 10:45 AM EST [facility] [address] [place] [address] Patient: Stacey Sahu Sex: female : 1975 Age: 48 y.o. PCP: ESSIE RYAN, LAY-MANAGER SERVICE DESK 06/28/2023 Stacey Sahu is here for a(n) [...] Medical History: Diagnosis Date Arthritis Bipolar disorder ([facility]) Chronic pain disorder Crohn's colitis ([facility]) Depression GERD (gastroesophageal reflux disease) H/O methicillin resistant Staphylococcus aureus infection Hyperlipidemia Joint pain Pleurisy Pulmonary hypertension ([facility]) Pulmonary hypertension ([facility]) Sleep apnea cpap Past Surgical History: Procedure Laterality Date COLON SURGERY part of bowel removed d/t crohns dx HYSTERECTOMY 2017 INJECTION SPINE TRANSFORAMINAL Right L 5,1 Nroot Right 05/26/2023 Performed by Pj Gannon MD at [facility] RELEASE DEQUERVAINS CONTRACTURE Right 10/17/2018 Performed by Dereck Bagley DO at [facility] THYROIDECTOMY, PARTIAL Allergies Allergen Reactions Penicillins [...] Anderson PA-C 06/28/23 1229 documented in this encounterHolzer HospitalCrediter[facility] [id number] Hospital Discharge instructions Patient Education 05/29/2023 15:17:27 Kidney Stones, Rnet-im-Fahs Kidney Stones Kidney stones are rock-like masses [...] Follow these instructions at home: Medicines Take vgln-sfo-mfnwtmm and prescription medicines only as told by [...] provider. Document Revised: 02/14/2022 Document Reviewed: 02/14/2022 Tagent Patient Education 2022 [employer]. Follow Up Care 11/08/2022 13:29:10 With:JOSE FELIX, Jose Palafox, URL Address: [facility] [address], [place] [phone] When: Unknown Comments:4 mos w/ metabolic w/u [facility] 05-16-2023 NoteNew patient here to re-establish care. Needs cleared for thyroid surgery with Dr. Caceres. Was last seen by Dr. Blackwood in 2018 for pulmonary hypertension. Denies chest pain and SOB. Does feel palpitations 3-4 times a day. Review of Systems Cardiovascular: Positive for palpitations. All other systems reviewed and are negative.[facility] 11-08-2022 NoteCardiovascular Medicine [facility] SUBJECTIVE Chief [...] Preserved LVEF - RVSP 27mmHg Normal cors ([facility] 03/2012) Exercise stress 2014- no ischemia NIRMALA [...] QTC CALCULATION(BEZET) 05/01/2017 457 ms Final P Watchung 05/01/2017 46 degrees Final R-Watchung 05/01/2017 60 degrees Final T Wave Watchung 05/01/2017 37 degrees Final Diagnosis 05/01/2017 Final [...] ventricular systolic function (more content not included)... [facility]02-09-2023 NoteCONSULTATION CONSULTATION DATE: 08/04/2022 HISTORY OF PRESENT [...] medications in three months, unless otherwise indicated.[facility] [id number] NotePROCEDURE: XR HIP RT 2 3V WO [...] authenticated by: PREET RODRIGEZ Date: 2022-07-07 15:33[facility] [id number] NoteCONSULTATION CONSULTATION DATE: 07/07/2022 HISTORY OF PRESENT [...] procedure, and she agrees to move forward.[facility] [id number] NoteCONSULTATION CONSULTATION DATE: 06/09/2022 HISTORY OF PRESENT [...] will re-evaluate with application of the diclofenac.[facility] 04-26-2022 Hospital Discharge instructions Patient Education 04/26/2022 [...] 06/12/2006 Document Revised: 03/01/2019 Document Reviewed: 05/12/2017 Tagent Patient Education 2020 [employer]. 04/26/2022 12:17:47 Hematuria, Adult Hematuria, Adult Hematuria [...] Follow these instructions at home: Medicines Take ekhh-mtf-yoinjbr and prescription medicines only as told by [...] or the blood stops without treatment. Take acvp-qdo-rkjikyx and prescription medicines only as told by your health care provider. Drink enough fluid to keep your urine clear or pale yellow. This information is not intended to replace advice given to you by your health care provider. Make sure you discuss any questions you have with your health care provider. Document Released: 06/12/2006 Document Revised: 11/06/2019 Document Reviewed: 07/15/2017 Tagent Patient Education 2020 [employer]. Follow Up Care 04/22/2022 08:39:58 With:JOSE FELIX, Jose Palafox, URL Address: [address] [place] [phone] When:Within 6 Month(s) Comments:6 mo fu with KUB [facility] 10-04-2022 NoteCONSULTATION PROCEDURE DATE: 03/29/2022 PREOPERATIVE DIAGNOSIS: [...] Will be followed up in the office.[facility] [id number] NoteCONSULTATION CONSULTATION DATE: 03/22/2022 CHIEF COMPLAINT: Right [...] up subsequent to that. CC: Essie Ryan, [facility]09-13-2022 Hospital Discharge instructions Patient Education [...] [facility] [address], [place] [address]- Business (1) When: Unknown Comments:Office will call to schedule follow up [facility]08-29-2022 NoteHNO ID: [id number] Author: Shiraz Bo, DO Service: ? Author Type: Physician Type: Progress Notes Filed: 03/13/2022 1:15 PM Note Text: [facility] [place] [facility] [place] [facility] - Medical Spine Initial [...] gel - no benefit Therapies PT at [facility] in [place] in June 2021 - 2 times per week for 1 month, exercises, TENS, ice - no relief Ice/heat Prior spine/MSK interventions: -12/31/21 Dr. Muñoz: R GTB CSI - minimal relief for 1 day. 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[place], [place] Litigation: No Workers' Compensation: No YELLOW [...] x 4 Crohn's disease without complication (HCC) [id number] Pulmonary Htn (Hcc) Obese Nirmala (Obstructive Sleep Apnea) Gerd (Gastroesophageal Reflux Disease) Crohn's Disease of Intestine (Hcc) Enterolith of Small Intestine (Hcc) Bipolar Disease, Chronic (Hcc) Other Hyperlipidemia PAST MEDICAL HISTORY Diagnosis Date Abnormal uterine bleeding s/p hysterectomy Bipolar disorder (HCC) Crohn's disease of intestine (HCC) s/p surgery GERD (gastroesophageal reflux disease) Obes (more content not included)...[facility]08-29-20[facility] History of Present illness Narrative* Shiraz Bo, - 02/21/2022 12:46 PM EDT Images from the original note were not included. [facility] [place] [facility] - Medical [...] gel - no benefit Therapies PT at [facility] in [place] in June 2021 - 2 times per week for 1 month, exercises, TENS, ice - no relief Ice/heat Prior spine/MSK interventions: -12/31/21 Dr. Muñoz: R GTB CSI - minimal relief for 1 day. 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 Author Type: Physician Type: Progress Notes Filed: 01/17/2022 3:48 PM Note Text: SERVICE DATE: January 17, 2022 PCP: Essie Ryan, NIURKA, MANAGER SERVICE DESK Patient was self-referred. Subjective Patient ID: Stacey [...] x 4 Crohn's disease without complication (HCC) [id number] Pulmonary Htn (Hcc) Obese Nirmala (Obstructive Sleep [...] January 17, 2022 TIME: 3:46 [facility]07-25-2022 History of Present illness Narrative* Breezy Muñoz DO - 01/17/2022 3:42 PM EDT SERVICE DATE: January 17, 2022 PCP: Essie Ryan, NIURKA, MANAGER SERVICE DESK Patient was self-referred. Subjective Patient ID: Stacey [...] x 4 Crohn's disease without complication (HCC) [id number] Pulmonary Htn (Hcc) Obese Nirmala (Obstructive Sleep [...] 2022 TIME: 3:46 PM documented in this encounter[facility]-2022 NoteHNO ID: [id number] Author: Breezy Muñoz DO Service: ? Author Type: Physician Type: Progress Notes Filed: 12/31/2021 1:10 PM Note Text: SERVICE DATE: December 31, 2021 PCP: Essie Ryan, NIURKA, MANAGER SERVICE DESK Patient was self-referred. Subjective Patient ID: Stacey [...] x 4 Crohn's disease without complication (HCC) [id number] Pulmonary Htn (Hcc) Obese Nirmala (Obstructive Sleep [...] trochanteric bursa Informed Consent Consent Obtained: Verbal Marlette Protocol A moment to CARE was completed. (more content not included)...[facility]07-08-2022 History of Present illness Narrative* Breezy Muñoz, DO - 12/31/2021 12:54 PM EDT Associated Order(s): Large Joint Arthro/Inj: R greater trochanteric bursa Post-Procedure Diagnose(s): Trochanteric bursitis of right hip SERVICE DATE: December 31, 2021 PCP: Essie Ryan CNP, MANAGER SERVICE DESK Patient was self-referred. Subjective Patient ID: Stacey [...] x 4 Crohn's disease without complication (HCC) [id number] Pulmonary Htn (Hcc) Obese Nirmala (Obstructive Sleep [...] trochanteric bursa Informed Consent Consent Obtained: Verbal Marlette Protocol A moment to CARE was completed. [...] 2021 TIME: 1:05 PM documented in [facility] Evaluation note* Encounter Date Diagnosis Assessment Notes [...] refer her to [facility]. Christian with [facility]. [facility] 05-25-2022 Evaluation note* Encounter Date Diagnosis [...] I will see her with those results. [facility] 06-21-2021 History of Past illness Narrative* Problem Noted Date Resolved Date Generalized abdominal pain 12/14/202012/16 documented as of this encounter (statuses as of 12/31/2021) [facility] History of Past illness Narrative* Problem Noted Date Resolved Date Generalized abdominal pain 12/14/202012/16 documented as of this encounter (statuses as of 01/17/2022) [facility] History of Past illness Narrative* Problem Noted Date Resolved Date Generalized abdominal pain 12/14/202012/16 documented as of this encounter (statuses as of 03/13/2022) [facility] No data available for this section [facility] Future Appointments Appointment Date:10/24/2022 11:30:00 AM Scheduled Provider:Jose GARCIA MD Location:[facility] Appointment Type:URO Office Visit [facility] Evaluation + Plan note Future Appointments Appointment Date:05/29/2023 02:30:00 PM Scheduled Provider:Jose GARCIA MD [facility] Type:URO Office Visit Future Scheduled Tests Laboratory* Calprotectin, Fecal 11/24/22 * CBC w/ Auto Diff 11/24/22 * Comprehensive Metabolic Panel 11/24/22 * C-Reactive Protein 11/24/22 Radiology* CT Abdomen/Pelvis w/contrast (enterography) 11/24/22 [facility] Evaluation + Plan note Future Appointments Appointment Date:05/29/2023 02:30:00 PM Scheduled Provider:Jose GARCIA MD Location:[facility] Appointment Type:URO Office Visit Future Scheduled Tests Laboratory* Calprotectin, Fecal 11/24/22 * CBC w/ Auto Diff 11/24/22 * Comprehensive Metabolic Panel 11/24/22 * C-Reactive Protein 11/24/22 [facility] Future Appointments Appointment Date:02/02/2023 01:00:00 PM Scheduled Provider:Ignacia KHAN MD Location:[facility] Appointment Type:[facility] Follow Up Appointment Date:05/29/2023 02:30:00 PM Scheduled Provider:Jose GARCIA MD [facility] Appoint[facility] Type:URO Office Visit Future Scheduled Tests Laboratory* Calprotectin, Fecal 11/24/22 [facility] Future Appointments Appointment Date:05/29/2023 02:30:00 PM Scheduled Provider:Jose GARCIA MD Location:[facility] Appointment Type:URO Office Visit Diagnostic Tests Pending * Calprotectin, Fecal 02/02/23 [facility] Future Appointments Appointment Date:10/02/2023 03:00:00 PM Scheduled Provider:Jose GARCIA MD Location:[facility] Appointment Type:URO Office Visit [facility] evaluation note* Diagnosis Trochanteric bursitis of right hip- Primary Enthesopathy of hip region documented in this encounter [facility] noteNo InformationNortSelect [facility] oohilove 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 [facility]* Diagnosis Tendinopathy of right gluteal region- Primary Trochanteric bursitis of right hip Enthesopathy of hip region Chronic bilateral low back pain without sciatica Lumbar spondylosis Lumbosacral spondylosis without myelopathy documented [facility]* Diagnosis Lumbar radiculopathy- Primary Thoracic or lumbosacral neuritis or radiculitis, unspecified [facility] Diagnosis Chronic right hip pain- Primary [facility] N[facility]ative - Reported* Type Description Date Medical History acid reflux Surgical History biopsy of intestines Surgical History hysterectomy [facility] Other Hospital Discharge instructions No data available for this section [facility] InstructionsNot on filedocumented in this encounter [facility] SystemInstructionsNot on filedocumented in this encounter [facility] SystemInstructionsNot on filedocumented in this encounter [facility] note No data available for this section [facility] RehabilitationReason for referral (narrative)* Consultation (Routine) - Pending Review Specialty Diagnoses / Procedures Referred By Contac t Referred To Contact Orthopedic Surgery Diagnoses Chronic right hip pain Imani Chan, SOCK DRIER-MANAGER SERVICE DESK [address] [place] [address] Bang Cuellar MD [address] [place] [address] Referral ID Status Reason Start Date Expiration Date Visits Requested Visits Authorized [id number] Pending Review Specialty Services Required 09/12/2023 09/11/2024 1 1 [facility] [employer] [facility] Summary Purpose Family History No Family History Records FoundNo Family History Records FoundNo Family History Records FoundNo Family History Records FoundNo Family History Records Found No data available for this section No Family History Records Found No data available for this section No Family History Records FoundNo Family History Records Found Advance Directives No Advanced Directives Records FoundDocuments on File Type Date Recorded 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 Advance Directive(s) 12/12/2020 8:14 PM Documents on File Type Date Recorded 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 Advance Directive(s) 12/12/2020 8:14 PM Reason for Referral Specialty Diagnoses / Procedures Referred By Wan gamboa Referred To Contact Diagnoses Trochanteric bursitis of right hip Tendinopathy of right gluteal region Chronic bilateral low back pain without sciatica Lumbar spondylosis Procedures CONSULT TO CHIROPRACTOR OFFICE/OUTPATIENT [facility] 60-74 MINUTES Shiraz Bo DO [address] [place] [place] [address] Referral ID Status Reason Start Date Expiration Date Visits Requested Visits Authorized [id number] Pending Review PCP Requested Referral 02/21/2022 02/21/2023 1 1 Specialty Diagnoses / Procedures Referred By Wan gamboa Referred To Contact Sports Medicine Diagnoses Trochanteric bursitis of right hip Tendinopathy of right gluteal region Procedures CONSULT TO SPORTS MEDICINE OFFICE/OUTPATIENT [facility] MDM 60-74 MINUTES Shiraz Bo, [address] [place] [address] Referral ID Status Reason Start Date Expiration Date Visits Requested Visits Authorized [id number] Authorized PCP Requested Referral 02/21/2022 02/21/2023 1 1 Specialty Diagnoses / Procedures Referred By Wan gamboa Referred To [facility] Diagnoses Trochanteric bursitis of right hip Lumbago-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 Procedures CONSULT TO [facility] OFFICE/OUTPATIENT [facility] 60-74 MINUTES Breezy Muñoz, [facility] [address] [place] [address] Referral ID Status Reason Start Date Expiration Date Visits Requested Visits Authorized [id number] Authorized PCP Requested Referral 01/17/2022 01/17/2023 1 1 Reason evaluate and treat. Gluteal tendon tear vs greater trochanteric bursitis Please refer to Bang Christian MD, Orthopaedic Surgery, [facility] Diagnosis 1 Trochanteric bursiti s, right hip (M70.61) Referral Organization [facility] Referring Provider First Name Alexis Referring Provider Last Name Dany ARDON Referring Provider Specialty Orthopedic Surgery Referred Organization [facility] Referred Address [address] [facility],[place], [place],[address] Referred Provider Specialty ORTHOPEDIC S URGEON Referral [...] section and content) DATE CREATED AUTHOR 12/19/2017 [facility] DATE CREATED AUTHOR AUTHOR'S ORGANIZ ATION 12/08/2021 [facility] DATE CREATED AUTHOR AUTHOR'S ORGANIZ ATION 03/26/2022 [facility] DATE CREATED AUTHOR AUTHOR'S ORGANIZ ATION 12/04/2022 [facility] DATE CREATED AUTHOR AUTHOR'S ORGANIZ ATION 12/04/2022 [facility] DATE CREATED AUTHOR AUTHOR'S ORGANIZ ATION 09/12/2023 [facility] DATE CREATED AUTHOR AUTHOR'S ORGANIZ ATION 11/29/2023 Willis Desoto [facility] DATE CREATED AUTHOR AUTHOR'S ORGANIZ ATION 12/14/2023 [facility] Special[facility] EPIC REASON FOR VISIT (unrecogniz ed section and content) Reason Comments New Specialty Diagnoses / Procedures Referred By Contac t Referred To Contact Orthopedics / ORTHOPAEDIC SURGERY Diagnoses Greater Trochanteric Bursitis right hip vs Gluteal Tendon tear *OUTSIDE IMG PT TO BRING Procedures LANA NEW NO XRAY Alexis Saenz II, MD [address] [place] [address] Breezy Muñoz DO [employer] [address] [place] [address] Referral ID Status Reason Start Date Expiration Date Visits Requested Visits Authorized [id number] Authorized Financial Clearance Not Required 12/24/2021 01/23/2022 99 99 Reason Comments Follow Up Reason Comments New Patient Evaluation Lower back pain/R ight side sciatica Specialty Diagnoses / Procedures Referred By Contac t Referred To Contact [facility] Diagnoses Trochanteric bursitis of right hip Lumbago-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 Procedures [facility] TO [facility] OFFICE/OUTPATIENT [facility] MDM 60-74 MINUTES Breezy Muñoz, [facility] [address] [place] [address] Referral ID Status Reason Start Date Expiration Date V isits Requested Visits Authorized [id number] Closed PCP Requested Referral 01/17/2022 01/17/2023 1 1 Reason Comments Hip Pain Reason Comments Hip Pain Source Comments (unrecognize d section and content) In the event this informatio n is protected by the Federal Confidentiality of Alcohol and Drug Abuse Patient Records regulations: The Federal rules restrict any use of the information to criminally investigate or prosecute any alcohol or drug abuse patient.[facility] the event this information is protected by the Federal Confidentiality of Alcohol and Drug Abuse Patient Records regulations: The Federal rules restrict any use of the information to criminally investigate or prosecute any alcohol or drug abuse patient.[facility] the event this information is protected by the Federal Confidentiality of Alcohol and Drug Abuse Patient Records regulations: The Federal rules restrict any use of the information to criminally investigate or prosecute any alcohol or drug abuse patient.[facility] Care Teams (unrecognized sec tion and content) Quality Officer Relationship Specialty Start Date End Date Essie Ryan CNP PCP - General Family Practice 07/22/16 Adán Torres Obstetrics 07/22/16 Alexis Saenz II, MD [address] [place] [address] Referring Orthopedics 12/13/21 Quality Officer Relationship Specialty Start Date End Date Essie Ryan [facility] PCP - General Family Practice 07/22/16 Adán Torres DO Obstetrics 07/22/16 Alexis Saenz II, MD [address] [place] [address] Referring Orthopedics 12/13/21 Quality Officer Relationship Specialty Start Date End Date Essie Ryan [facility] PCP - General Family Practice 07/22/16 Adán Torres DO Obstetrics 07/22/16 Alexis Saenz II, MD [address] [place] [place] [address] Referring Orthopedics 12/13/21 Quality Officer Relationship Specialty Start Date End Date Essie Ryan [facility] [address] [place] [address] PCP - General Nurse Practitioner 10/03/18 Quality Officer Relationship Specialty Start Date End Date Essie Ryan [facility] [address] [place] [address] PCP - General Nurse Practitioner 10/03/18 Quality Officer Relationship Specialty Start Date End Date Essie Ryan [facility] [address] [place] [address] PCP - General Nurse Practitioner 10/03/18 FOR [...] BE BASED ON THE PRIMARY CLINICAL RECORDS. [facility] [employer] [facility]. provides no warranty or guarantee of the accuracy or completeness of information in this document.
== END 2023-12-27 06:45 | disposition home or self-care (01) ==
LOC: MRI 06:44
PROVIDERS: PCP Nurse Practitioner; Visit Provider Student in an Organized Health Care Education/Training Program
DX: M54.16 Radiculopathy, lumbar region (principal); M25.751 Osteophyte, right hip
CPT/HCPCS: 72148

== ENCOUNTER 2024-03-06 06:11 | Outpatient (OUT) | payer OTHER, SELFPAY ==
--- OUTSIDE RECORDS SUMMARY | 2024-03-06 06:15 | XMS_ITS | CCD ---
Author Organization [facility] Care Team Providers Care Paid Internship Name Role Phone PHYSICIAN, DEFAULT Unavailable Unavailable PHYSICIAN, DEFAULT Unavailable Unavailable AICHHOLZ, ESSIE Unavailable Unavailable PHYSICIAN, DEFAULT Unavailable Unavailable PHYSICIAN, DEFAULT Unavailable Unavailable AICHHOLZ, ESSIE Unavailable Unavailable PHYSICIAN, DEFAULT Unavailable Unavailable PHYSICIAN, DEFAULT Unavailable Unavailable AICHHOLKamila, ESSIE Unavailable Unavailable Alexis Saenz II Unavailable [phone] Essie Ryan CNP Primary Care Provider Adán Torres Unavailable [phone] Dany ARDON MD, Robert M Unavailable Adán Torres DO Unavailable ESSIE RYAN Primary Care Physician AicEssie ha CNP Primary Care Provider [phone] Adán Torres DO Unavailable [phone] Dany ARDON MD, Robert M Unavailable ESSIE RYAN Primary Care Unavailable SHIRAZ BO Attending Unavailable BREEZY MUÑOZ Referring Unavailable ESSIE RYAN Primary Care Unavailable BREEZY MUÑOZ Attending Unavailable BREEZY MUÑOZ Attending Unavailable ESSIE RYAN Primary Care Unavailable CAN VALERA Attending Unavailable CAN VALERA Consulting Unavailable AICJenniferHOLNIURKA Treviño ESSIE Primary Care Unavailable CAN VALERA Admitting Unavailable DR MARKO PERRY Admitting Unavailable ANDREW Lóepz, DR MARKO Stafford Attending Unavailable NIURKA RYAN ESSIE Primary Care Unavailable ARTURO VANEGAS Consulting Unavailable ANDREW ., DR MARKO Stafford Attending Unavailable MORALES ., DR MARKO Stafford Consulting Unavailable AICHHOLZ, [facility] ESSIE Primary Care Unavailable MORALES ., DR MARKO Stafford Admitting Unavailable APLINGADRIANNA Attending Unavailable APLING, ADRIANNA B Consulting Unavailable APLING, ADRIANNA B Admitting [facility] Primary [facility] Unavailable PAULETTE PHIPPS Unavailable AICHOLZ, [facility] ESSIE Primary Care Unavailable GARCIA ., DR BAILEY Attending Unavailable GARCIA ., DR BAILEY Consulting Unavailable GARCIA ., DR BAILEY Admitting Unavailable WEST, DR PAULETTE León Consulting Unavailable MORALES ., DR MARKO Stafford Admitting Unavailable MORALES ., DR MARKO Stafford Attending Unavailable MORALES ., DR MARKO Stafford Consulting Unavailable AICHOLZ, [facility] ESSIE Primary Care Unavailable DELANEY .ARTURO Consulting Unavailable MORALES ., DR MARKO Stafford Admitting Unavailable MORALES ., DR MARKO Stafford Attending Unavailable [facility] Primary Care Unavailable YOBANY ., DR RASMUSSEN Attending Unavailable [facility] Primary Care Unavailable YOBANY ., DR RASMUSSEN Admitting Unavailable WEST, DR PAULETTE León Consulting Unavailable YOBANY ., DR RASMUSSEN Consulting Unavailable AICHOLZ, [facility] Primary Care Unavailable GARCIA ., DR BAILEY Admitting Unavailable GARCIA ., DR BAILEY Attending Unavailable GARCIA ., DR BAILEY Consulting Unavailable ZIEBER, DR PREET Palafox Consulting Unavailable TIMMIS, DR RED Attending Unavailable TIMMIS, DR RED Consulting Unavailable TIMMIS, DR RED Admitting Unavailable AICHOLZ, [facility] ESSIE Primary Care Unavailable ZIEBER, DR PREET Palafox Consulting Unavailable TIMMIS, DR RED Attending Unavailable TIMMIS, DR RED Consulting Unavailable TIMMIS, DR RED Admitting Unavailable AICHHOLZ, [facility] ESSIE Primary Care Unavailable ZIEBER, DR PREET Palafox Consulting Unavailable TIMMIS, DR RED Attending Unavailable TIMMIS, DR RED Consulting Unavailable AICHHOLZ, [facility] ESSIE Primary Care Unavailable TIMMIS, DR RED Admitting Unavailable WEST, DR PAULETTE León Consulting Unavailable AICHHOLZ, [facility] ESSIE Primary Care Unavailable GARCIA ., DR BAILEY Attending Unavailable GARCIA ., DR BAILEY Consulting Unavailable GARCIA ., DR BAILEY Admitting Unavailable ZIEBER, DR PREET Palafox Consulting Unavailable LAKSHMIPATHY ., NARENDRANATH Attending Marleni vailable AICHHOLZ, [employer] ESSIE Primary Care Unavailable LAKSHMIPATHY ., NARENDRANATH Admitting Marleni vailable MORALES ., DR MARKO Stafford Admitting Unavailable MORALES ., DR MARKO Stafford Attending Unavailable MORALES ., DR MARKO Stafford Consulting Unavailable AICHHOLZ, [employer] ESSIE Primary Care Unavailable DELANEY ., ARTURO Consulting Unavailable AICHHOLZ, [employer] [employer] ESSIE Primary Care Unavailable WEST, DR PAULETTE León Consulting Unavailable GARCIA ., DR BAILEY Attending Unavailable GARCIA ., DR BAILEY Admitting Unavailable AICHHOLZ, [employer] ESSIE Consulting Unavailable YOBANY ., DR RASMUSSEN Attending Unavailable YOBANY ., DR RASMUSSEN Consulting Unavailable AICHHOLZ, [employer] [employer] ESSIE Primary Care Unavailable YOBANY ., DR RASMUSSEN Admitting Unavailable AICHHOLZ, [employer] ESSIE Primary Care Unavailable AICHHOLZ, [employer] ESSIE Attending Unavailable AICHHOLZ, [employer] ESSIE Consulting Unavailable AICHHOLZ, [employer] ESSIE Admitting Unavailable DELANEY ., ARTURO Admitting Unavailable DELANEY ., ARTURO Attending Unavailable AICHHOLZ, [employer] ESSIE Primary Care Unavailable ZIEBER, DR PREET Palafox Consulting Unavailable DELANEY ., ARTURO Consulting Unavailable TIMMIS, DR RED Attending Unavailable TIMMIS, DR RED Consulting Unavailable TIMMIS, DR RED Admitting Unavailable AICHHOLZ, [employer] ESSIE Primary Care Unavailable ZIEBER, DR PREET Palafox Consulting Unavailable DIAB ., EDNA Attending Unavailable DIAB ., EDNA Admitting Unavailable MARKER ., DR JIMÉNEZ Consulting Unavailable AICHHOLZ, [employer] ESSIE Primary Care Unavailable DIAB ., EDNA Consulting Unavailable OWOYELE, MISTY Consulting Unavailable AICHHOLZ, [employer] [employer] ESSIE Primary Care Unavailable AICHHOLZ, [facility] [employer] ESSIE Attending Unavailable AICHHOLZ, [employer] [employer] ESSIE Consulting Unavailable AICHHOLZ, [employer] ESSIE Admitting Unavailable ZIEBGEORGE, DR PREET Palafox Consulting Unavailable MORALES ., DR MARKO Stafford Attending Unavailable MORALES ., DR MARKO Stafford Admitting Unavailable AICHHOLZ, [employer] ESSIE Primary Care Unavailable MICHAEL, DR MCCARTHY Referring Unavailable GARCIA ., DR BAILEY Consulting Unavailable MORALES ., DR MARKO Stafford Consulting Unavailable CAN VALERA Attending Unavailable Aichholz [employer], Essie J Primary Care Provider Juliana Block Unavailable PJ GANNON Attending Unavailable JP GANNON E Referring Unavailable AICHHOLZ, ESSIE J Primary Care Unavailable PJ GANNON Admitting Unavailable PJ GANNON Attending Unavailable AICHHOLZ, ESSIE J Referring Unavailable [...] Attending Unavailable SALAM, Beth Referring Unavailable SALAM, Ignacia Attending Unavailable Jose GARCIA Attending Unavailable LESLIE JUNG Attending Unavailable SALAM, Beth Admitting Unavailable SALAM, Ignacia Attending Unavailable SALAM, Ignacia Attending Unavailable SALAM, Beth Referring Unavailable SALAM, Beth Admitting Unavailable SALAM, Beth Admitting Unavailable SALAM, Ignacia Attending Unavailable AICHHOLZ, ESSIE Attending Unavailable TIMMINEDA Stafford Attending Unavailable AICHHOLZESSIE Attending Unavailable MARY DANIELS Attending Unavailable AICHHOLZ, ESSIE Referring Unavailable TIMMINEDA Stafford Attending Unavailable AICHHOLZ, ESSIE Referring Unavailable AICHHOLZ, ESSIE Attending Unavailable SHAIKH WHITE Attending Unavailable JANET MODI Attending Unavailable SHAIKH WHITE Attending Unavailable JAMIE RANDHAWA Attending Unavailable ARSALAN PALMER Referring Unavailable JAMIE RANDHAWA Attending Unavailable ARSALAN PALMER Referring Unavailable KOLE FULTON Attending Unavailable ARSALAN PALMER Referring Unavailable JOSIAS LOPEZ Attending Unavailable KYLE MCNEIL Referring Unavailable TINO PEREZ Attending Unavailable KYLE MCNEIL Referring Unavailable TINO PEREZ Attending Unavailable KYLE MCNEIL Referring Unavailable KELTINO SIN Attending Unavailable KYLE MCNEIL Referring Unavailable JOSIAS LOPEZ Attending Unavailable KYLE MCNEIL Referring Unavailable AICHHOLZ, ESSIE Attending Unavailable AICHHOLZ, ESSIE Attending Unavailable Allergies Allergy Classification Reported Allergen(s) Allergy Type Date of Onset Reaction(s) Facility (5 sources) Penicillins; Translations: [PENICILLINS] Drug allergy (disorder) 09-21-2011 [facility] Repository (3 sources) Penicillin V Drug Allergy Fever [facility] Other (6 sources) Penicillins Drug Allergy 07-27-2016 Unknown [facility] (9 sources) History of - penicillin allergy (context-depende nt category); Translations: [H/O: penicillin allergy] Drug allergy [facility] (1 source) Penicillin Drug Allergy Fever [facility] Other Medications Current Medications Medication Drug Class(es) [...] by mouth once daily. polyethylene glycol 3350 190445 mg / potassium chloride 1480 mg / sodium bicarbonate 5720 mg / sodium chloride 16719 mg powder for oral solution (3 sources) Osmotic Laxative Start: 11-28-2022 NuLYTELY [place] oral powder for reconstitution See Instructions, 1 EA, Refill(s) 0, See physician instructions prior to procedure., [id number], 155, cm, 11/24/22 13:47:00 EDT, Height/Length Dosing, [...] 2 tab(s), Refills(s) 0, [facility]: [facility] #[id number], 155, cm, 03/03/22 15:04:00 EDT, Height/Length Dosing, 90, kg, 02/25/22 10:22:00 EDT, Rubio.Maribel. Start Date: 03/03/22 Status: Ordered colchicine 0.6 [...] Spinach (cooked), rhubarb, beets, sweet potatoes, and Cuban chard. ? Peanuts. ? Potato chips, maori fries, and baked potatoes with skin on. ? Nuts and nut products. ? Chocolate. ? If you regularly take a diuretic medicine, make sure to eat at least 1 or 2 servings of fruits or vegetables that are high in potassium each day. These include: ? Avocado. ? Banana. ? [place], prune, carrot, or tomato juice. ? Baked [...] fish oil, or vitamin B6. ? Take otuh-yza-kjtwhpx and prescription medicines only as told by your health care provider. These include supplements. What foods sh (more content not included)... Normal [facility] Screenson 11-28-2023 Screens [id number]# 1.00TIFF Normal [facility] Urology Office/Clinic Noteon 11-28-2023 Urology Office/Clinic Note [...] stones id'd. CT AP w con [place] [facility] [place] 5 [place] RLP stone and 2 mm LLP stone. Mild fulness at R renal pelvis with tapering at [facility]. KUB 01/05/23 [facility] [place] 4 mm renal [...] Contact Information ANGELICA SHAIKH, LESLIE Medina, [address] [place] [address] Additional Instructions: 1 yr MAGALYS, BEN Patient [...] Protein Urine Dipstick: Negative (11/28/23 09:04:00) Specific [place] Urine Dipstick: 1.020 (11/28/23 09:04:00) Urine Appearance Urine Dipstick: Clear (11/28/23 09:04:00) Urine Color Urine Dipstick: Yellow (11/28/23 09:04:00) Urobilinogen Urine Dipstick: Normal 0.2-1 EU/dl (11/28/23 09:04:00) pH Urine Dipstick: 7 (11/28/23 09:04:00) [1] URO- 6 month f/u; JOSE FELIX, Jose Palafox 05/29/2023 15:18 EST [facility] Comment on above: Result Comment: Elec tronically Signed By: LESLIE JUNG PA-C\.br\Date and Time Signed: 11/28/23 10:11 EDT\.br\Electronically Co-Signed By: Zenobia Denis\.br\Date and Time Co-Signed: 11/28/23 09:37 EDT [facility] 08-01-2023 Lab Reports [id number] #1.00TIFF [facility] 07-31-2023 Lab Reports [id number] #1.00TIFF [facility] 07-28-2023 Lab Reports [id number] #1.00TIFF [facility] Lab Reports [id number] #1.00TIFF [facility] 07-26-2023 Lab Reports [id number] #1.00TIFF Normal [facility] COVID/FLU/RSV RT-PCRon 07-11 SARS-CoV-2 (COVID-19) RNA IZAIAH+probe Ql (Unsp spec) Positive [facility] Other COVID/FLU/RSV RT-PCR Negative [facility] Other Ambulatory Visit Summaryon 1 07-30-2022 Ambulatory Visit Summary STACEY SAHU :1975 Visit Date:05/29/2023 Ambulatory Visit Instructions Your Diagnosis Kidney stones Gross hematuria Tests Performed Urnls Dip Stick Auto w/o Microscopy POC 49049 Your Care Team Attending Physician - Jose [...] metabolic w/u Where: [facility] [address] [place] [address] [phone] Medications What How Much When Instructions Unchanged [...] Urnls Dip Stick Auto w/o Microscopy POC 89990 (05/29/2023) Bilirubin Urine Dipstick - Negative Blood Urine Dipstick - 3+ Large Glucose Urine Dipstick - Negative Ketones Urine Dipstick - Negative Leukocytes Urine Dipstick - Negative Nitrite Urine Dipstick - Negative Protein Urine Dipstick - Negative Specific [place] Urine Dipstick - >=1.030 Urine Appearance Urine [...] ? Santy (more content not included)... Normal [facility] Patient Educationon 05-29-20 Patient Education Urology Kidney [...] these instructions at home: Medicines ? Take cvel-vev-pwjlrji and prescription medicines only as told by [...] provider. Document Revised: 02/14/2022 Document Reviewed: 02/14/2022 [employer] Patient Education ? 2022 JDCPhosphate. [facility] Urology Office/Clinic Noteon 05-29-2023 Urology Office/Clinic [...] stones id'd. CT AP w con [place]06[place] [facility] [place] 5mm RLP stone and 2mm LLP stone. Mild fulness at R renal pelvis with tapering at [facility]. KUB 01/05/23 [facility] [place] 4mm [place] stone [...] Urology [address], [place] [address] [phone] Additional Instructions: 4 mos w/ metabolic w/u Patient Education Kidney Stones, Fqkd-lt-Addr I, Imani Renae, personally scribed for Dr. [...] Dipstick: Negative (more content not included)... Normal [facility] Comment on above: Result Comment: Elec tronically [...] with voice recognition artificial intelligence software, specifically [employer], [employer] and or [employer]. Substitutions may have occurred due to the inherent limitations of voice recognition and artificial intelligence software. ATTESTATION: Documentation services were performed after patient or guardian consented to allow [employer] to record this visit. DELVIN early childhood education specialist and provider reviewed before signing. DELVIN: [...] H/O: penic (more content not included)... Normal [facility] Comment on above: Result Comment: Elec tronically Signed By: Ana Rosa Iglesias\.br\Date and Time Signed: 02/02/23 15:48 EDT\.br\Electronically Co-Signed By: Ignacia HKAN MD\.br\Date and Time Co-Signed: 02/06/23 14:00 EDT Calprotectin, Fecalon 2022 Calprotectin (Stl) [Mass/Mass] 87 mcg/gm Invalid Interpretation Code 0-120 [facility] Comment on above: Result Comment: Conc entration Interpretation Follow-Up < 5 - 50 ug/g Normal None >50 -120 ug/g Borderline Re-evaluate in 4-6 weeks >120 ug/g Abnormal Repeat as clinically indicated Performed at: [facility] [address] [id number] MD Kody Hayes Performed By: #### 1 [id number] ####[facility] [address] [place] [address] Ambulatory Visit Summaryon 0 8-10-2023 Ambulatory Visit Summary STACEY SAHU :1975 Visit [...] [facility] Normal [facility] Auto Diffon 02-01-2023 Basophils/100 WBC (Bld) 2.7 % High 0.0-2.0 [facility] Comment on above: Order Comment: Order Added by Discern Expert. Performed By: #### 2 150480, 5904873, 7263116, 62157680, 5580673 ####[facility] [address] [place] [address] Basophils/Leukocytes Auto (Bld) [Pure # fraction] 0.2 E9/L Normal 0.0-0.2 [facility] Comment on above: Order Comment: Order Added by Discern Expert. Performed By: #### 2 014178, 0201325, 5516960, 99247652, 6684508 ####[facility] [address] [place] [address] Eosinophils/100 WBC (Bld) 8.5 % High 0.0-8.0 [facility] Comment on above: Order Comment: Order Added by Discern Expert. Performed By: #### 2 312454, 5618450, 9595751, 96918587, 5152769 ####[address] [place] [address] Eosinophils/Leukocyte s Auto (Bld) [Pure # fraction] 0.7 E9/L High 0.0-0.5 [facility] Comment on above: Order Comment: Order Added by Discern Expert. Performed By: #### 2 917305, 4888250, 9233437, 47077774, 9370041 ####[address] [address] Lymphocytes/100 WBC (Bld) 34.8 % Normal 14.0-50.0 [facility] Comment on above: Order Comment: Order Added by Discern Expert. Performed By: #### 2 049373, 2851934, 3441862, 97455123, 3065844 ####[address] [address] Lymphocytes/Leukocyte s Auto (Bld) [Pure # fraction] 2.8 E9/L Normal 1.0-4.0 [facility] Comment on above: Order Comment: Order Added by Discern Expert. Performed By: #### 2 677627, 6315073, 4541438, 48894375, 2153553 ####[address] [address] Monocytes/100 WBC (Bld) 9.4 % Normal 4.0-14.0 [facility] Comment on above: Order Comment: Order Added by Discern Expert. Performed By: #### 2 936778, 8819022, 9186401, 32527240, 0902127 ####[address] [address] Monocytes/Leukocytes Auto (Bld) [Pure # fraction] 0.8 E9/L Normal 0.2-1.0 [facility] Comment on above: Order Comment: Order Added by Discern Expert. Performed By: #### 2 878218, 1062367, 1198354, 79067124, 4344105 ####[address] [address] Neutrophils/100 WBC (Bld) 44.6 % Normal 36.0-75.0 [facility] Comment on above: Order Comment: Order Added by Discern Expert. Performed By: #### 2 978265, 1485436, 8029194, 08308133, 8847317 ####[facility] [address] [place] [address] Neutrophils/Leukocyte s Auto (Bld) [Pure # fraction] 3.5 E9/L Normal 2.0-7.5 [facility] Comment on above: Order Comment: Order Added by Discern Expert. Performed By: #### 2 185687, 5798684, 9047137, 26024018, 8069059 ####[address] [address] CBC w/ Auto Diffon 3 Erythrocyte distribution width (RBC) [Ratio] 13.6 % Normal 10.9-14.2 [facility] Comment on above: Performed By: #### 2 070438, 3341255, 4922284, 83699681, 8051045 ####[address] [address] Hematocrit (Bld) [Volume fraction] 39.5 % Normal 34.0-46.0 [facility] Comment on above: Performed By: #### 2 966277, 1541048, 9552901, 82862301, 4849865 ####[address] [address] Hemoglobin (Bld) [Mass/Vol] 13.3 g/dL Normal 12.0-16.0 [facility] Comment on above: Performed By: #### 2 655842, 1804868, 3974421, 28613003, 6701069 ####[address] [address] MCH (RBC) [Entitic mass] 29.1 pg Normal 27.0-34.0 [facility] Comment on above: Performed By: #### 2 500413, 4732697, 4476906, 35149654, 7060900 ####[address] [place] [address] MCHC (RBC) [Mass/Vol] 33.7 g/dL Normal 31.4-36.0 [facility] Comment on above: Performed By: #### 2 069679, 5292348, 4255698, 53539975, 3474195 ####[address] [place] [address] MCV (RBC) [Entitic vol] 86.4 fL Normal 80.0-100.0 [facility] Comment on above: Performed By: #### 2 815171, 5676662, 5097789, 06129579, 9904644 ####[address] [address] Platelet mean volume (Bld) [Entitic vol] 8.9 fL Normal 6.4-10.8 [facility] Comment on above: Performed By: #### 2 072771, 6863604, 7923274, 45974860, 9539492 ####[address] [address] Platelets (Bld) [#/Vol] 274.0 E9/L Normal 150.0-500.0 [facility] Comment on above: Performed By: #### 2 619356, 6682311, 0167566, 90733237, 6094918 ####[address] [address] RBC (Bld) [#/Vol] 4.6 E12/L Normal 4.3-5.9 [facility] Comment on above: Performed By: #### 2 793643, 7873256, 6280374, 37855452, 6425167 ####[address] [address] WBC corrected for nucl RBC Auto (Bld) [#/Vol] 8.0 E9/L Normal 4.0-11.0 [facility] Comment on above: Performed By: #### 2 811908, 8456111, 7743383, 81756392, 5282249 ####[facility] [address] [place] [address] CHEMISTRYOrdered By: SYSTEM SYSTEM on 02-01-2023 Albumin [...] 7.2 g/dL Normal 6.0 - 7.8 gm/dL [facility] [place] Remisol Sodium [Moles/Vol] 139 mmol/L Normal 135 - 145 mmol/L [facility] [place] Remisol Urea nitrogen [Mass/Vol] 15 mg/dL Normal 5 - 21 mg/dL [facility] [place] Remisol Urea nitrogen/Creatinine [Mass ratio] 17 mg/mg Normal 10 - 20 [facility] [place] Remisol CMPon 02-01-2023 Albumin [Mass/Vol] 4.0 g/dL Normal 3.3-5.0 [facility] Comment on above: Performed By: #### 2 026047, 7676825, 1307165, 04753833, 9210841 ####[facility] [address] [place] [address] Albumin/Globulin (S) [Mass conc ratio] 1.2 Normal 1.1-2.2 [facility] Comment on above: Performed By: #### 2 535538, 7048727, 0310805, 96144821, 5322676 ####[facility] [address] [place] [address] ALP [Catalytic activity/Vol] 53 Int._Unit/L Normal 21-98 [facility] Comment on above: Performed By: #### 2 408397, 2980268, 2128545, 09838788, 3431528 ####[facility] [address] [place] [address] ALT No additional P-5'-P [Catalytic activity/Vol] 18 Int._Unit/L Normal 6-46 [facility] Comment on above: Performed By: #### 2 772115, 4190239, 7518226, 71882466, 5916190 ####[facility] [address] [place] [address] Anion gap [Moles/Vol] 13 mmol/L Normal 6-16 [facility] Comment on above: Performed By: #### 2 232894, 3677903, 5492475, 83285997, 5782103 ####[facility] [address] [place] [address] AST [Catalytic activity/Vol] 18 Int._Unit/L Normal 5-43 [facility] Comment on above: Performed By: #### 2 344073, 2190713, 4722349, 61192503, 8584904 ####[facility] [address] [place] [address] Bilirubin [Mass/Vol] 0.4 mg/dL Normal 0.0-1.1 [facility] Comment on above: Performed By: #### 2 964901, 0738186, 9730361, 13367249, 5084956 ####[facility] [address] [place] [address] Calcium [Mass/Vol] 9.1 mg/dL Normal 8.9-11.1 [facility] Comment on above: Performed By: #### 2 133039, 9569022, 9876487, 35110547, 5246599 ####[facility] [address] [place] [address] Chloride [Moles/Vol] 106 mmol/L Normal 101-111 [facility] Comment on above: Performed By: #### 2 160702, 7654397, 1901756, 86318242, 1494523 ####[facility] [address] [place] [address] CO2 [Moles/Vol] 24 mmol/L Normal 21-31 [facility] Comment on above: Performed By: #### 2 907924, 9994184, 8391650, 30421131, 0256207 ####[facility] [address] [facility] [place] [address] Creatinine [Mass/Vol] 0.9 mg/dL Normal 0.5-1.3 [facility] Comment on above: Performed By: #### 2 707482, 6012089, 9039745, 45276961, 4266640 ####[facility] [address] [place] [address] Globulin (S) [Mass/Vol] 3.2 g/dL Normal 1.4-4.0 [facility] Comment on above: Performed By: #### 2 458961, 1126462, 9407628, 15176492, 7718408 ####[facility] [address] [place] [address] Glucose [Mass/Vol] 99 mg/dL Normal 55-199 [facility] Comment on above: Result Comment: If t his glucose result represents a fasting glucose, interpretation should refer to the following reference range: 55-99 mg/dL Performed By: #### 2 [id number], [id number], 4541451, [id number], [id number] ####[facility] [address] [place] [address] Potassium [Moles/Vol] 3.9 mmol/L Normal 3.5-5.3 [facility] Comment on above: Performed By: #### 2 355125, 0112948, 4616086, [id number], 1164826 ####[facility] [address] [place] [place] [address] Protein [Mass/Vol] 7.2 g/dL Normal 6.0-7.8 [facility] Comment on above: Performed By: #### 2 563551, 3494542, 8771652, 33195900, 9623927 ####[facility] [address] [address] Sodium [Moles/Vol] 139 mmol/L Normal 135-145 [facility] Comment on above: Performed By: #### 2 097910, 2565527, 3544661, 91345335, 2686985 ####[facility] [address] Ave[address] [place] [address] Urea nitrogen [Mass/Vol] 15 mg/dL Normal 5-21 [facility] Comment on above: Performed By: #### 2 918298, 0921928, 3167968, 44785093, 1041975 ####[facility] [address] [place] [address] Urea nitrogen/Creatinine [Mass ratio] 17 No Units Normal 10-20 [facility] Comment on above: Performed By: #### 2 493524, 4577025, 9230456, 59164707, 0879255 ####[facility] [address] [place] [address] CRPon 02-01-2023 CRP [Mass/Vol] 0.7 mg/dL Normal <=1.9 [facility] Comment on above: Performed By: #### 2 954415, 2306780, 4612853, 00047370, 8546973 ####[facility] [address] [place] [address] Consent for Treatmenton Consent for Treatment [id number] #1.00CD:127 Normal [facility] HEMATOLOGYOrdered By: SYSTEM SYSTEM on 02-01-2023 Basophils/100 [...] 274.0 E9/L Normal 150.0 - 500.0 E9/L [facility] HemeAutoSS RBC (Bld) [#/Vol] 4.6 E12/L Normal 4.3 - 5.9 E12/L [facility] HemeAutoSS WBC corrected for nucl RBC Auto (Bld) [#/Vol] 8.0 E9/L Normal 4.0 - 11.0 E9/L [facility] HemeAutoSS eGFRon 02-01-2023 GFR/1.73 sq M.predicted among non-blacks MDRD (S/P/Bld) [Vol rate/Area] 80 mL/min/1.73 m2 Normal >=59 [facility] Comment on above: Order Comment: Order added by Discern Expert. Result Comment: Automotive Service Director gail kidney disease could be indicated at eGFR's of less than 60 mL/min/1.73m2. Kidney failure is indicated at less than 15 mL/min/1.73m2. Performed By: #### 2 968499, 1565534, 4375360, 25754777, 7249685 ####[facility] [address] [place] [address] XR Abdomen 1 Viewon 01-07-20 23 XR [...] mGy = na DAP = na Normal [facility] Consent for Treatmenton 12-24 Consent for Treatment [id number] #1.00CD:127 Normal [facility] Outside Colonoscopyon 2022 Outside Colonoscopy [id number] #2.00CD:127 Normal [facility] CT Abdomen/Pelvis w/contrast (enterography)on 12-09-2022 CT Abdomen/Pelvis [...] Oral contrast amount in ml's: 1450 Normal [facility] Consent for Treatmenton 11-24 Consent for Treatment [id number] #1.00CD:127 Normal [facility] 36on 11-23-2022 36 Please let her know her ECHO was normal. I updated my note with clearance for her upcoming surgery. Please send to surgeons office. She should follow-up with an attending in 3 months or sooner if needed. Thanks Normal [facility] Telephoneon 11-23-2022 Telephone [id number] Stacey Sahu 1975 F Date Provider Department Center 11/23/2022 354-CAN VALERA CARD Gunnar Posada. Family History Problem Relation Age of Onset Coronary artery disease Father Family Status - Relation Status Age at Father Normal [facility] ECHOCARDIO M/2D COMPLETEon 0 11-22-2022 ECHOCARDIO M/2D COMPLETE Patient: STACEY SAHU Exam Date: 11/22/2022 : 1975 Gender:F Ordering : CAN [facility]A [facility] Admission #: [id number] Family : Order #: [id number] CLICK HERE TO VIEW EXAM ECHOCARDIOGRAM REPORT [...] M.D. on 11/22/2022 at 17:44 Normal [facility] Office Visiton 11-08-2022 Follow-up visit [id number] Stacey Sahu 1975 F Date Provider Department Center 11/08/2022 Miguel-CAN VALERA [facility] Family History Problem Relation Age of Onset Coronary artery disease Father Family Status - Relation Status Age at Father Level of Service:[address] [place] OFFICE/OUTPATIENT NEW MODERATE MDM 45-59 MINUTES Reason for Visit and Comments: Re-establish care [Other] Pulmonary Hypertension [818] Normal [facility] US THYROID FN ASP BXon 10-28 THYROID FN ASP BX Begin Addendum #1 COLLECTED DATE/TIME: 10/18/2022 13:19 EDT Final Diagnosis Report for [facility] [place] [place] (A/B) SOFT TISSUE MASS CEPHALAD TO THYROID; FINE NEEDLE ASPIRATION: -ATYPIA OF UNDETERMINED SIGNIFICANCE. -CYST CONTENT. NOTE: Sparsely cellular aspirate compromised of follicular cells with architectural atypia. Molecular testing or a repeat aspirate may be helpful if clinically indicated. The final diagnosis is based on a microscopic exam of inbound customer service representative sections. 10/25/[address] Caceres. [...] 2. Pathology results are pending. Normal [facility] XR KUB 1 VIEWon 10-27-2022 [...] PAULETTE GALVAN Date: 2022-10-27 07:19 Normal [facility] CT NECK ST W CONon CT NECK [...] PREET RODRIGEZ Date: 2022-10-05 08:22 Normal [facility] CARDIAC DENZEL ADMITon 023 CK [Catalytic activity/Vol] 149 U/L Normal 26-192 [facility] Comment on above: Performed By: #### C SHIVANI DENSON, CMP ####[facility] [address] [address]Dr. Nita Iverson CK.MB [Mass/Vol] 1.51 ng/mL Normal <=3.60 [facility] Comment on above: Performed By: #### C SHIVANI DENSON, CMP ####[facility] [address] [address]Dr. Nita Iverson HSTROP 4.1 pg/mL Normal 4.0-51.3 [facility] Comment on above: Result Comment: CUT- OFF POINTS HAVE BEEN ESTABLISHED BASED ON THE FOURTH UNIVERSAL DEFINITIONS OF MYOCARDIAL INFARCTION. THE UPPER REFERENCE LIMIT (URL) OF TROPONIN, DEFINED THE 99TH PERCENTILE OF cTnI DISTRIBUTION IN A REFERENCE POPULATION, HAS BEEN CONFIRMED THE DECISION THRESHOLD FOR NM DIAGNOSIS. Performed By: #### C SHIVANI DENSON, CMP ####[facility] [address] [address]Dr. Nita Iverson ARIES 47 ng/mL Normal 9-82 [facility] Comment on above: Performed By: #### C SHIVANI DENSON, CMP ####[facility] [address] [address]DrMaribel Iverson CBC AUTO DIFFon 09-21-2022 BASO # 0.1 103/ul Normal 0.0-0.1 [facility] Comment on above: Performed By: #### C BC #### [facility] [address] [address] [address] Nita Iverson Basophils/100 WBC (Bld) 0.8 % Normal 0.2-2.0 [facility] Comment on above: Performed By: #### C BC #### [facility] [address] [address] [address] Nita Iverson EO # 0.7 103/ul Normal 0.0-0.7 [facility] Comment on above: Performed By: #### C BC #### [facility] [address] [place] [address] Dr. Nita Iverson Eosinophils/100 WBC (Bld) 7.1 % Critically high 0.9-7.0 [facility] Comment on above: Performed By: #### C BC #### [facility] [address] [place] [address] Dr. Nita Iverson Erythrocyte distribution width (RBC) [Ratio] 12.3 % Normal 11.0-15.0 [facility] Comment on above: Performed By: #### C BC #### [facility] [address] [place] [address] Dr. Nita Iverson Hematocrit (Bld) [Volume fraction] 40.1 % Normal 36.0-48.0 [facility] Comment on above: Performed By: #### C BC #### [facility] [address] [place] [address] Dr. Nita Iverson Hemoglobin (Bld) [Mass/Vol] 13.6 g/dL Normal 12.0-16.0 [facility] Comment on above: Performed By: #### C BC #### [facility] [address] [place] [address] Dr. Nita Iverson IG # 0.02 10e3/ul Normal 0.00-0.03 [facility] Comment on above: Performed By: #### C BC #### [facility] [address] [place] [address] Dr. Nita Iverson IG % 0.2 % Normal 0.0-0.5 [facility] Comment on above: Performed By: #### C BC #### [facility] [address] [place] [address] Dr. Nita Iverson LYMPH # 3.0 103/ul Normal 1.2-3.8 [facility] Comment on above: Performed By: #### C BC #### [facility] [address] [place] [address] Dr. Nita Iverson Lymphocytes/100 WBC (Bld) 30.2 % Normal 20.5-60.0 [facility] Comment on above: Performed By: #### C BC #### [facility] [address] [place] [address] Dr. Nita Iverson MANUAL DIFF REQ NO Normal [facility] Comment on above: Performed By: #### C BC #### [facility] [address] [place] [address] Dr. Nita Iverson MCH (RBC) [Entitic mass] 30.0 pg Normal 26.7-34.0 [facility] Comment on above: Performed By: #### C BC #### [facility] [address] [place] [address] Dr. Nita Iverson MCHC (RBC) [Mass/Vol] 33.9 g/dL Normal 29.9-35.2 [facility] Comment on above: Performed By: #### C BC #### [facility] [address] [place] [address] Dr. Nita Iverson MCV (RBC) [Entitic vol] 88.3 fL Normal 81.0-99.0 [facility] Comment on above: Performed By: #### C BC #### [facility] [address] [place] [address] Dr. Nita Iverson MONO # 0.8 103/ul Normal 0.3-0.8 [facility] Comment on above: Performed By: #### C BC #### [facility] [address] [place] [address] Dr. Nita Iverson Monocytes/100 WBC (Bld) 7.8 % Normal 1.7-12.0 [facility] Comment on above: Performed By: #### C BC #### [facility] [address] [place] [address] Dr. Nita Iverson NEUT # 5.4 103/ul Normal 1.4-6.5 [facility] Comment on above: Performed By: #### C BC #### [facility] [address] [place] [address] Dr. Nita Iverson Neutrophils/100 WBC (Bld) 53.9 % Normal 43.0-75.0 [facility] Comment on above: Performed By: #### C BC #### [facility] [address] [place] [address] Dr. Nita Iverson Platelet mean volume (Bld) [Entitic vol] 10.4 fL Normal 9.5-13.5 [facility] Comment on above: Performed By: #### C BC #### [facility] [address] [place] [address] Dr. Nita Iverson PLT 270 103/ul Normal 150-450 [facility] Comment on above: Performed By: #### C BC #### [facility] [address] [place] [address] Dr. Nita Iverson RBC 4.54 106/ul Normal 4.20-5.40 [facility] Comment on above: Performed By: #### C BC #### [facility] [address] [place] [address] Dr. Nita Iverson WBC 10.0 103/ul Normal 4.0-11.0 [facility] Comment on above: Performed By: #### C BC #### [facility] [address] [place] [address] ABD/PELV W CONon [...] MISTY SPEARS Date: 2022-09-21 21:41 Normal [facility] ER URINE PROFILEon 3 Bilirubin Ql (U) Negative Normal NEGATIVE [facility] Comment on above: Performed By: #### U MICRO, ERUR, PREGU ####[facility] [address] [address]Dr. Nita Iverson Clarity (U) CLEAR Normal CLEAR [facility] Comment on above: Performed By: #### U MICRO, ERUR, PREGU ####[facility] [address] [address]Dr. Nita Iverson Color (U) LT. YELLOW Normal YELLOW [facility] Comment on above: Performed By: #### U MICRO, ERUR, PREGU ####[facility] [address] [address]Dr. Nita FISHERD A micrscopic examination will be performed if indicated. Normal [facility] Comment on above: Performed By: #### U MICRO, ERUR, PREGU ####[facility] [address] [address]Dr. Nita Iverson Glucose Ql (U) Negative Normal NEGATIVE [facility] Comment on above: Performed By: #### U MICRO, ERUR, PREGU ####[facility] [address] [address]Dr. Nita Iverson Hemoglobin Ql (U) LARGE Abnormal NEGATIVE [facility] Comment on above: Performed By: #### U MICRO, ERUR, PREGU ####[facility] [address] [address]Dr. Nita Iverson Ketones Ql (U) Negative Normal NEGATIVE [facility] Comment on above: Performed By: #### U MICRO, ERUR, PREGU ####[facility] [address] [address]Dr. Nita Iverson LEUKOCYTES Negative Normal NEGATIVE [facility] Comment on above: Performed By: #### U MICRO, ERUR, PREGU ####[facility] [address] [address]Dr. Nita Iverson Nitrite Ql (U) Negative Normal NEGATIVE [facility] Comment on above: Performed By: #### U MICRO, ERUR, PREGU ####[facility] [address] [address]Dr. Nita Iverson pH (U) 6.5 [pH] Normal 5-9 [facility] Comment on above: Performed By: #### U MICRO, ERUR, PREGU ####[facility] [address] [place], [place] [address]Dr. Nita Iverson SPEC GRAVITY 1.020 Normal 1.005-<=1.02 5 [facility] Comment on above: Performed By: #### U MICRO, ERUR, PREGU ####[facility] [address] [place], [place] [address]Dr. Nita Iverson UA PROTEIN Negative Normal NEGATIVE/ TRACE [facility] Comment on above: Performed By: #### U MICRO, ERUR, PREGU ####[facility] [address] [place] [address]Dr. Nita Iverson UR MICRO IND INDICATED Normal [facility] Comment on above: Performed By: #### U MICRO, ERUR, PREGU ####[facility] [address] [place], [place] [address]Dr. Nita Iverson Urobilinogen Qn (U) 1.0 {Senait'U}/dL Normal 0.2 - 1. 0 [facility] Comment on above: Performed By: #### U MICRO, ERUR, PREGU ####[facility] [address] [id number]. Nita Iverson LIPASEon 09-21-2022 Lipase [Catalytic activity/Vol] 89.0 U/L Normal 73.0-393.0 [facility] Comment on above: Performed By: #### C MADM, LIPA, CMP ####[facility] [address] [place], [place] [address]SjMaribel Iverson URon 09-21-2022 , QUAL Negative Normal NEGATIVE [facility] Comment on above: Performed By: #### U MICRO, ERUR, PREGU ####[facility] [address] [id number]. Nita Iverson PROF 14(COMP METB)on 023 Albumin [Mass/Vol] 3.5 g/dL Normal 3.4-5.0 [facility] Comment on above: Performed By: #### C MADM, LIPA, CMP #### [facility] [address] [address] [address] Nita Iverson Albumin/Globulin [Mass ratio] 1.0 {ratio} Normal [facility] Comment on above: Performed By: #### C MADM, LIPA, CMP #### [facility] [address] [address] [address] Nita Iverson ALP [Catalytic activity/Vol] 67 U/L Normal 46-116 [facility] Comment on above: Performed By: #### C MADM, LIPA, CMP #### [facility] [address] [address] [address] Nita Iverson ALT [Catalytic activity/Vol] 30 U/L Normal 14-59 [facility] Comment on above: Performed By: #### C MADM, LIPA, CMP #### [facility] [address] [address] [address] Nita Iverson Anion gap [Moles/Vol] 11.8 mmol/L Normal [facility] Comment on above: Performed By: #### C MADM, LIPA, CMP #### [facility] [address] [address] [address] Nita Iverson AST [Catalytic activity/Vol] 25 U/L Normal 15-37 [facility] Comment on above: Performed By: #### C JARETT LIPA, CMP #### [facility] [address] [address] [address] Nita Iverson Bilirubin [Mass/Vol] 0.3 mg/dL Normal 0.2-1.0 [facility] Comment on above: Performed By: #### C MADM LIPA, CMP #### [facility] [address] [address] [address] Nita Iverson Calcium [Mass/Vol] 9.2 mg/dL Normal 8.5-10.1 [facility] Comment on above: Performed By: #### C MADMarita LIPA, CMP #### [facility] [address] [place] [address] Dr. Nita Iverson Chloride [Moles/Vol] 106 mmol/L Normal 98-107 [facility] Comment on above: Performed By: #### C MADMarita LIPA, CMP #### [facility] [address] [place] [address] Dr. Nita Iverson CO2 [Moles/Vol] 28.7 mmol/L Normal 21.0-32.0 [facility] Comment on above: Performed By: #### C MADMarita LIPA, CMP #### [facility] [address] [place] [address] Dr. Nita Iverson Creatinine [Mass/Vol] 0.81 mg/dL Normal 0.55-1.02 [facility] Comment on above: Performed By: #### C MADM, LIPA, CMP #### [facility] [address] [place] [address] Dr. Nita Iverson EGFR-AF SRI LANKAN >60 Normal >=60 [facility] Comment on above: Performed By: #### C MADM, LIPA, CMP #### [facility] [address] [place] [address] Dr. Nita Iverson EGFR-NON AF SRI LANKAN >60 Normal >=60 [facility] Comment on above: Performed By: #### C MADM, LIPA, CMP #### [facility] [address] [address] [address] Nita Iverson Globulin (S) [Mass/Vol] 3.5 g/dL Normal [facility] Comment on above: Performed By: #### C MADM, LIPA, CMP #### [facility] [address] [address] [address] Nita Iverson Glucose [Mass/Vol] 106 mg/dL Normal 74-106 [facility] Comment on above: Performed By: #### C MADM, LIPA, CMP #### [facility] [address] [place] [address] Dr. Nita Iverson Potassium [Moles/Vol] 4.5 mmol/L Normal 3.5-5.1 [facility] Comment on above: Performed By: #### C MADM, LIPA, CMP #### [facility] [address] [place] [address] Dr. Nita Iverson Protein [Mass/Vol] 7.0 g/dL Normal 6.4-8.2 [facility] Comment on above: Performed By: #### C MADM, LIPA, CMP #### [facility] [address] [place] [address] Dr. Nita Iverson Sodium [Moles/Vol] 142 mmol/L Normal 136-145 [facility] Comment on above: Performed By: #### C MADM, LIPA, CMP #### [facility] [address] [place] [address] Dr. Nita Iverson Urea nitrogen [Mass/Vol] 12.0 mg/dL Normal 7.0-18.0 [facility] Comment on above: Performed By: #### C MADM, LIPA, CMP #### [facility] [address] [place] [address] Dr. Nita Iverson Urea nitrogen/Creatinine [Mass ratio] 14.8 mg/mg Normal [facility] Comment on above: Performed By: #### C MADM, LIPA, CMP #### [facility] [address] [place] [address] Dr. Nita Iverson URINE MICROSCOPIC ONLYon BACTERIA NONE SEEN Normal NONE SEEN [facility] Comment on above: Performed By: #### U MICRO, ERUR, PREGU ####[facility] [address] [address]Dr. Nita Iverson Bacteria identified Cx Nom (U) NOT INDICATED Normal [facility] Comment on above: Performed By: #### U MICRO, ERUR, PREGU ####[facility] [address] [address]Dr. Nita Iverson CAST NONE SEEN Normal NONE SEEN [facility] Comment on above: Performed By: #### U MICRO, ERUR, PREGU ####[facility] [address] [address]Dr. Nita Iverson Crystals LM Nom (Urine sed) NONE SEEN Normal NONE SEEN [facility] Comment on above: Performed By: #### U MICRO, ERUR, PREGU ####[facility] [address] [address]Dr. Nita Iverson Epithelial cells LM Ql (Urine sed) RARE Normal NONE SEEN /RARE [facility] Comment on above: Performed By: #### U MICRO, ERUR, PREGU ####[facility] [address] [address]Dr. Nita Iverson MUCOUS NONE SEEN Normal NONE SEEN [facility] Comment on above: Performed By: #### U MICRO, ERUR, PREGU ####[facility] [address] [place], [place] [address]Dr. Nita Iverson RBC 20-50 Abnormal 0-2 [facility] Comment on above: Performed By: #### U MICRO, ERUR, PREGU ####[facility] [address] [address]Dr. Nita Iverson WBC 2-5 Abnormal NONE SEEN [facility] Comment on above: Performed By: #### U MICRO, ERUR, PREGU ####[facility] [address] [place] [address]Dr. Nita Iverson US THYROIDon 09-06-2022 US THYROID [...] by: PREET RODRIGEZ Date: 2022-09-06 20:19 Normal [facility] MRI HIP RT WO CONon 08-19-19 23 MRI HIP RT WO CON EXAM: MRI HIP RT WO CON HISTORY: Right hip pain COMPARISON: X-rays 07/07/2022 TECHNIQUE: Axial and coronal large ynkxy-it-uvwa sequencing through the pelvis and both hips. Small zlddq-bz-azou coronal, sagittal and axial sequencing through the [...] at approximately the 11:00 position (coronal small yobzj-op-lhly 14). The remainder of the labrum exhibits no gross irregularity. The left acetabulum is normal. The bilateral femoral head and acetabular cartilage exhibits no chondral or osteochondral irregularity. The pubic symphysis and sacroiliac joints are normal. Thickening and interstitial edema of the right gluteus medius tendon insertion to the greater trochanter (coronal small enkbk-ri-oqmh 13 and axial large nxqfh-zy-uymr 23). Mild amount of adjacent edema. No abnormal bursal fluid collection. Questionable mild thickening and interstitial edema of the left gluteus minimus tendon (coronal large scteb-ew-riro 17 and axial large sbqlh-po-mybu 23 and to a lesser degree the gluteus medius tendon (coronal large vymft-pr-irbs 21). No tendon tear, tendon tear or [...] by: PAULETTE PHIPPS Date: 2022-08-18 22:39 Normal [facility] PAP ACOG PANEL 2: 30 to 65on 08-11-2022 . . Normal [facility] Comment on above: Result Comment: Perf ormed at: WB Performed By: #### 4 [id number] ####[facility] [address] [place] [id number] Iverson Age Gdln ACOG Testing 30-65 Normal [facility] Comment on above: Performed By: #### 4 [id number] ####[facility] [address] [place], [place] [address]KgMaribel Iverson DIAGNOSIS: Comment Normal [facility] Comment on above: Result Comment: NEGA TIVE FOR INTRAEPITHELIAL LESION OR MALIGNANCY. Performed at: WB Performed By: #### 4 [id number] ####[facility] [address] [place], [place] [address]WnMaribel Iverson HPV Aptima Negative Normal Negative [facility] Comment on above: Result Comment: This nucleic acid amplification test detects fourteen high-risk HPV types (16,18,31,33,35,39,45,51,52,56,58,59,66,68) without differentiation. Performed at: =G Performed By: #### 4 [id number] ####[facility] [address] [place] [id number]. Nita Iverson HPV Genotype Reflex Comment Normal [facility] Comment on above: Result Comment: Crit eria not met, HPV Genotype not performed. Performed at: WB Performed By: #### [id number] ####[facility] [address] [place], [place] [address]DrMaribel Iverson Methodology: Comment Normal [facility] Comment on above: Result Comment: This liquid based ThinPrep(R) pap test was screened with the use of an image guided system. Performed at: WB Performed By: #### [id number] ####[facility] [address] [place], [place] [address]DrMaribel Iverson Note: Comment Normal [facility] Comment on above: Result Comment: The Pap smear is a screening test designed to aid in the detection of premalignant and malignant conditions of the uterine cervix. It is not a diagnostic procedure and should not be used as the sole means of detecting cervical cancer. Both false-positive and false-negative reports do occur. . Performed at: WB Performed By: #### [id number] ####[facility] [address] [place], [place] [address]DrMaribel Iverson Performed by: Comment Normal [facility] Comment on above: Result Comment: Jordana Pruett, Roto Rooter Operator (ASCP) Performed at: WB Performed By: #### [id number] ####[facility] [id number] [place], [place] [address]DrMaribel Iverson Specimen adequacy: Comment Normal [facility] Comment on above: Result Comment: Sati sfactory for evaluation. No endocervical component is identified. Performed at: WB Performed By: #### [id number] ####[facility] [address] [place], [place] [address]DrMaribel Iverson US PELVIS AND TRANSVAGon US PELVIS [...] by: PAULETTE GALVAN Date: 2022-06-06 17:51 Normal [facility] CT ABD/PELV WO W CONon 04-25 [...] by: PREET RODRIGEZ Date: 2022-04-25 08:09 Normal [facility] NM RENAL W_WO PHARMon 2021 NM [...] by: PAULETTE GALVAN Date: 2022-03-22 17:23 Normal [facility] XR KUB 1 VIEWon 03-22-2022 XR [...] by: PAULETTE GALVAN Date: 2022-03-22 17:57 Normal [facility] US THYROIDon 03-09-2022 US THYROID EXAMINATION: [...] IMPRESSION: Multinodular goiter, grossly stable TI-RADS: The [employer] TI-RADS committee's white paper recommendations for thyroid lesions classified as TR4 (moderately suspicious) are listed below: > 1.0 cm. Follow-up ultrasound in 1, 2, 3, and 5 years. > 1.5 cm. FNA. J. Am Rosendo Radiol 2017;14:587-595. Electronically authenticated by: PAULETTE GALVAN Date: 2022-03-09 07:07 Normal [facility] CT ABD/PELV WO W CONon 03-07 [...] by: PREET RODRIGEZ Date: 2022-03-07 16:45 Normal [facility] CNOVon 02-21-2022 [facility] Office Visit (SILVERIO) STACEY SAHU ([id number]) 1975 F Date Time Provider Department 02/21/22 1:00 PM SHIRAZ BO During your visit today, we recorded the following information about you: Pulse Blood pressure Weight 76/minute 138/85 88.8 kg Shiraz Bo DO 03/13/2022 1:15 PM Signed [facility] - [facility] Spine [...] gel - no benefit Therapies PT at [facility] in [place] in June 2021 - 2 times per week for 1 month, exercises, TENS, ice - no relief Ice/heat Prior spine/MSK interventions: -12/31/21 Dr. Muñoz: R GTB CSI - minimal relief for 1 day. 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 Normal [facility] MG MAMM SCREEN 3D GRACIE CADon 02-09-2022 MG MAMM SCREEN 3D GRACIE CAD Patient: STACEY SAHU Derick Exam Date: 02/09/2022 : 1975 Gender:F Ordering : NIURKA RYAN [employer]ENTER Admission #: [id number] Family : Order #: [id number] CLICK HERE TO VIEW EXAM RADIOLOGY REPORT [...] colon cancer at age 56. LOCATION: [facility] BREAST COMPOSITION: Scattered areas fibroglandular density. [...] M.D. on 02/09/2022 at 14:53 Normal [facility] Covid-19 PCR (CVDTBH)on SARS-CoV-2 (COVID-19) RNA IZAIAH+probe Ql (Unsp spec) Detected Critically abnormal NOT DETECTED [facility] Comment on above: Result Comment: This test is not yet approved or cleared by the [place] FDA. When there are no FDA-approved or cleared tests available, and other criteria are met, FDA can make tests available under an emergency access mechanism called an Emergency Use Authorization (EUA). The EUA for this test is supported by the [place] of Health and Human Service's declaration that [...] used). Performed By: #### C VDTB #### [facility] [address] [place] [address] Dr. Nita Figueroa 01-17-2022 CNOV Office Visit (LOORRM) STACEY SAHU ([id number]) 1975 F Date Time Provider Department 01/17/22 3:30 PM BREEZY MUÑOZ During your visit today, we recorded the following information about you: Breezy Muñoz DO 01/17/2022 3:48 PM Signed SERVICE DATE: January 17, 2022 PCP: Essie Ryan, NIURKA, BUYER RENTER Patient was self-referred. Subjective Patient ID: Stacey [...] x 4 Crohn's disease without complication (HCC) [id number] Pulmonary Htn (Hcc) Obese Nirmala (Obstructive Sleep [...] TO S (more content not included)... Normal [facility] CNOVon 12-31-2021 CNOV Office Visit (LOORRM) STACEY SAHU ([id number]) 1975 F Date Time Provider Department 12/31/21 1:00 PM BREEZY MUÑOZ During your visit today, we recorded the following information about you: Breezy Muñoz DO 12/31/2021 1:10 PM Signed SERVICE DATE: December 31, 2021 PCP: Essie Ryan, NIURKA, BUYER RENTER Patient was self-referred. Subjective Patient ID: Stacey [...] x 4 Crohn's disease without complication (HCC) [id number] Pulmonary Htn (Hcc) Obese Nirmala (Obstructive Sleep [...] Care Vi (more content not included)... Normal [facility] MR femur RT wo/w conon 12-04 MR femur RT wo/w con [facility] [place] [address] [place] [address] MRI Report Signed Patient: Stacey Sahu MR#: [id number] : 1975 Acct:[id number] Age/Sex: 46 / F ADM Date: 12/03/21 Loc: MR Room: Type: [facility] Attending Dr: Alexis Saenz II, MD [...] Stock Jr., M.D.12/04/2021 3:45 PM Dictation Location: [place] [address] Transcribed By: [facility] 12/04/21 1545 Dictated By: Breezy Stock Jr, MD 12/04/21 1519 Signed By: 12/04/21 1545 Normal [facility] XR femur RT 2V*on 11-17-2021 XR femur RT 2V* [facility] [place] [address] XRay Report Signed Patient: Stacey Sahu MR#: [id number] : 1975 Acct:[id number] Age/Sex: 46 / F ADM Date: 11/17/21 [place] [facility] [place]: Type: [facility] Attending Dr: Alexis Saenz II, MD Ordering Provider: Alexis Saenz MD Date of Service: 11/17/21 XR/XR hip RT min 2V(w/wo pelvis)*: Right hip pain ([id number]) XR/XR femur RT 2V*: Right hip pain [...] Vipin Iniguez M.D.11/17/2021 3:56 PM Dictation Location: [place] [address] Transcribed By: [facility] 11/17/21 1556 Dictated By: Vipin Iniguez DO 11/17/21 1553 Signed By: 11/17/21 1556 [facility] Large Joint Arthro/Inj: R gr eater trochanteric bursa [facility] Vital Signs Date Time Vital Sign Value Performing Clinician Facility 11-28-2023 09:08-0400 Blood Pressure Location LESLIEANDER JUNG [facility] 11-28-2023 09:08-0400 Diastolic blood pressure 84 mm[Hg] LESLIE JUNG [facility] 11-28-2023 09:08-0400 Heart rate 82 /min LESLIE JUNG [facility] 11-28-2023 09:08-0400 Respiratory rate 16 /min LESLIE JUNG [facility] 11-28-2023 09:08-0400 Systolic blood pressure 139 mm[Hg] LESLIEANDER JUNG [facility] 09-12-2023 07:42-0400 Diastolic blood pressure 103 mm[Hg] Imani Chan APRN-BUYER RENTER Work Phone: [facility] 09-12-2023 07:42-0400 Heart rate 95 /min Imani Chan BENCH WORKER [employer]ING[employer] Work Phone: [facility] 09-12-2023 07:42-0400 Respiratory rate 18 /min Imani Chan [employer]EN[employer] WORK[employer] Work Phone: [facility] 09-12-2023 07:42-0400 SaO2% (BldA) [Mass fraction] 99 % Imani Chan [employer]ENCH WORKER [employer] Work Phone: [facility] 09-12-2023 07:42-0400 Systolic blood pressure 136 mm[Hg] Imani Chan BENCH WORKER [employer] Work Phone: [facility] 06-28-2023 10:34-0500 Body height 149.9 cm Evans Verhoff PA-C Work Phone: [facility] 06-28-2023 10:34-0500 Body mass index (BMI) [Ratio] 38.78 kg/m2 Evans Verhoff PA-C Work Phone: [facility] 06-28-2023 10:34-0500 Body weight 87.09 kg Evans Verhoff PA-C Work Phone: [facility] 06-28-2023 10:34-0500 Diastolic blood pressure 107 mm[Hg] Evans Verhoff PA-C Work Phone: [facility] 06-28-2023 10:34-0500 Heart rate 93 /min Evans Verhoff PA-C Work Phone: [facility] 06-28-2023 10:34-0500 SaO2% (BldA) [Mass fraction] 97 % Evans Verhoff PA-C Work Phone: [facility] 06-28-2023 10:34-0500 Systolic blood pressure 139 mm[Hg] Evans Verhoff PA-C Work Phone: [facility] 05-29-2023 14:39-0500 Blood Pressure Location Jose GARCIA [facility] 05-29-2023 14:39-0500 Diastolic blood pressure 83 mm[Hg] Jose GARCIA [facility] 05-29-2023 14:39-0500 Heart rate 88 /min Jose GARCIA [facility] 05-29-2023 14:39-0500 Respiratory rate 16 /min Jose GARCIA [facility] 05-29-2023 14:39-0500 Systolic blood pressure 131 mm[Hg] Jose GARCIA [facility] 11-24-2022 13:48-0400 Diastolic blood pressure 106 mm[Hg] Beth SALAM [facility] 11-24-2022 13:48-0400 Mean blood pressure 121 mm[Hg] Beth SALAM [facility] 11-24-2022 13:48-0400 Systolic blood pressure 152 mm[Hg] Beth SALAM [facility] 11-24-2022 13:46-0400 Blood Pressure Location Beth SALAM [facility] 11-24-2022 13:46-0400 Diastolic blood pressure 118 mm[Hg] Beth SALAM [facility] 11-24-2022 13:46-0400 Heart rate 80 /min Beth SALAM [facility] 11-24-2022 13:46-0400 Respiratory rate 16 /min Beth SALAM [facility] 11-24-2022 13:46-0400 Systolic blood pressure 161 mm[Hg] Ignacia DELA CRUZAM [facility] 04-26-2022 12:03-0400 Blood Pressure Location Jose GARCIA [facility] 04-26-2022 12:03-0400 Diastolic blood pressure 95 mm[Hg] Jose GARCIA [facility] 04-26-2022 12:03-0400 Heart rate 102 /min Jose GARCIA [facility] 04-26-2022 12:03-0400 Systolic blood pressure 141 mm[Hg] Jose GARCIA [facility] 02-21-2022 12:39-0400 Body weight 88.81 kg Shiraz Mendis DO Work Phone: [facility] 02-21-2022 12:39-0400 Diastolic blood pressure 85 mm[Hg] Shiraz Mendis DO Work Phone: [facility] 02-21-2022 12:39-0400 Heart rate 76 /min Shiraz Mendis DO Work Phone: [facility] 02-21-2022 12:39-0400 Systolic blood pressure 138 mm[Hg] Shiraz Mendis DO Work Phone: [facility] 12-09-2021 09:00-0400 Body height 160.02 cm Alexis Saenz II Other [facility] Other 12-09-2021 09:00-0400 Body mass index (BMI) [Ratio] 34.47 kg/m2 Alexis Saenz II Other [facility] Other 12-09-2021 09:00-0400 Body weight 88.27 kg Alexis Richardsonle II Other [facility] Other 11-17-2021 15:30-0400 Body height 160.02 cm Alexis Saenz II Other [facility] Other 11-17-2021 15:30-0400 Body mass index (BMI) [Ratio] 32.41 kg/m2 Alexis Saenz II Other [facility] Other 11-17-2021 15:30-0400 Body weight 83.01 kg Alexis Saenz II Other [facility] Other Encounters Encounter Date Encounter Type Care Provider Facility Start: 02-29-2024 End: 02-29-2024 ambulatory ESSIE AICHHOLZ Not Available Start: 01-30-2024 End: 01-30-2024 ambulatory ESSIE AICHHOLZ Not Available Start: 12-13-2023 End: 12-14-2023 ambulatory JOSIAS LOPEZ Not Available Start: 12-11-2023 End: 12-13-2023 ambulatory TINOFAY VALDEZBLEY Not Available Start: 12-04-2023 End: 12-05-2023 ambulatory TINO COURTNEYBLEY Not Available Start: 11-30-2023 End: 12-01-2023 ambulatory TINO KELBLEY Not Available Start: 11-28-2023 End: 11-29-2023 ambulatory JOSIAS T BLACKSTON Not Available Start: 11-28-2023 End: 11-28-2023 ambulatory LESLIE JUNG Facility:[facility] Start: 11-28-2023 End: 11-28-2023 Patient encounter procedure LESLIE JUNG [facility] Start: 11-23-2023 End: 11-24-2023 ambulatory KOLE FULTON Not Available Start: 11-21-2023 End: 11-22-2023 ambulatory JAMIE RANDHAWA Not Available Start: 11-16-2023 End: 11-16-2023 ambulatory JAMIE RANDHAWA Not Available Start: 11-08-2023 End: 11-08-2023 ambulatory SHAIKH CHRISTOPHER Not Available Start: 11-08-2023 End: 11-08-2023 ambulatory JANET MODI Not Available Start: 10-25-2023 End: 10-25-2023 ambulatory SHAIKH DESTINWAD Not Available Start: 09-28-2023 End: 09-28-2023 ambulatory ESSIE AICHHOLZ Not Available Start: 09-20-2023 Telephone encounter Nora FROST [facility] Start: 09-12-2023 End: 09-12-2023 ambulatory [facility] Start: 09-12-2023 End: 09-12-2023 Office outpatient visit 15 minutes [facility] [employer] WORK[employer] Work Phone: [facility] Comment on above: Chronic right hip pa in (Primary Dx) Start: 09-06-2023 End: 09-06-2023 ambulatory NEDA CACERES Not Available Start: 09-01-2023 End: 09-02-2023 ambulatory PJ Medina GANNON [facility] Start: 08-26-2023 End: 08-26-2023 ambulatory MARY DANIELS Not Available Start: 08-21-2023 End: 08-21-2023 ambulatory [facility] Start: 07-13-2023 End: 07-13-2023 ambulatory ESSIE AICHHOLZ Not Available Start: 07-11-2023 End: 07-11-2023 ambulatory Juliana Block Other [facility] Other Start: 07-11-2023 Office outpatient vi sit 25 minutes Juliana Block [facility] Start: 07-04-2023 End: 07-04-2023 ambulatory ESSIE AICHHOLZ Not Available Start: 06-28-2023 End: 06-28-2023 ambulatory EVANS ANDERSON [facility] Start: 06-28-2023 End: 06-28-2023 Office outpatient visit 15 minutes Evans Anderson PA-C Work Phone: [facility] Comment on above: Lumbar radiculopathy (Primary Dx) Start: 05-29-2023 End: 05-29-2023 ambulatory Jose GARCIA Facility:[facility] Start: 05-29-2023 End: 05-29-2023 Patient encounter procedure Jose GARCIA [facility] Start: 05-10-2023 End: 05-10-2023 ambulatory NEDA CACERES Not Available Start: 02-02-2023 End: 02-02-2023 [facility] Start: 02-02-2023 End: 02-02-2023 ambulatory Beth SALAM [place] Start: 02-02-2023 End: 02-02-2023 Lab Drop off Beth SALAM [facility] Start: 02-01-2023 End: 02-01-2023 ambulatory Beth SALAM [place] Start: 02-01-2023 End: 02-01-2023 Patient encounter procedure Beth SALAM [facility] Start: 01-05-2023 End: 01-05-2023 ambulatory Beth SALAM [place] Start: 01-03-2023 End: 01-03-2023 ambulatory Beth SALAM Facility:CD:[id number] Start: 12-06-2022 End: 12-06-2022 ambulatory Beth SALAM [place] Start: 12-06-2022 End: 12-06-2022 Patient encounter procedure Beth SALAM [facility] Start: 11-24-2022 End: 11-24-2022 Patient encounter procedure Beth SALAM [facility] Start: 11-22-2022 End: 11-23-2022 ambulatory CAN LINN Facility:[facility] Start: 11-08-2022 End: 11-08-2022 ambulatory [facility] Start: 11-08-2022 End: 11-08-2022 Encounter for preprocedural cardiovascular examination [facility] Start: 11-08-2022 ambulatory SURAJMONA JOSE . Facility:[facility] Start: 10-26-2022 End: 10-27-2022 ambulatory [employer] ESSIE RYAN Facility:[facility] Start: 10-18-2022 End: 10-18-[address] NEDA CACERES Facility:[facility] Start: 10-04-2022 End: 10-05-[address] NEDA CACERES Facility:[facility] Start: 09-21-2022 End: 09-22-2022 ambulatory EDNA MCRAE . Facility:[facility] Start: 09-06-2022 End: 09-07-[address] NEDA CACERES Facility:[facility] Start: 08-18-2022 End: 08-19-2022 ambulatory ADRIANNA Bazzi APLING Facility:[facility] Start: 08-04-2022 End: 08-05-[address] [...] [facility] Jose Angel Start: 04-22-2022 End: 04-23-2022 ambulatory NIURKA RYAN Facility:[facility] Start: 03-29-2022 End: 03-30-[address] MARKO MORALSE . Facility:[facility] Start: 03-22-2022 End: 03-23-2022 ambulatory NIURKA ESSIELisa LAWSONJenniferJACOB Facility:[facility] Start: 03-22-2022 End: 03-23-[address] MARKO MORALES . Facility:[facility] Start: 03-08-2022 End: 03-09-[address] NEDA CACERES Facility:[facility] Start: 03-08-2022 End: 03-08-2022 Patient encounter procedure Jose GARCIA [facility] Start: 03-07-2022 End: 03-08-2022 ambulatory NIURKA RYAN Facility:[facility] Start: 02-21-2022 End: 02-21-2022 [facility] Start: 02-21-2022 End: 02-21-2022 Patient encounter procedure Shiraz Bo DO Work Phone: Spine Medicine Comment on above: Tendinopathy of righ t gluteal region (Primary Dx); Trochanteric bursitis of right hip; Chronic bilateral low back pain without sciatica; Lumbar spondylosis Start: 02-09-2022 End: 02-10-2022 ambulatory NIURKA RYAN Facility:[facility] Start: 01-24-2022 End: 01-24-2022 ambulatory NIURKA RYAN Facility:[facility] Start: 01-17-2022 End: 01-17-2022 ambulatory ESSIE ANÍBAL KATTYSAEKamila Facility:[facility] Start: 01-17-2022 End: 01-17-2022 Patient encounter procedure Breezy Muñoz DO Work Phone: Orthopaedics Comment on above: Trochanteric bursiti s of right hip (Primary Dx); Lumbago-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 Start: 01-05-2022 End: 01-05-2022 ambulatory Alexis Dany II Other [facility] Other Start: 01-05-2022 Telephone encounter Alexis [place] II [facility] Start: 12-31-2021 End: 12-31-2021 ambulatory BREEZY MUÑOZ Facility:[facility] Start: 12-31-2021 End: 12-31-2021 Patient encounter procedure Breezy Muñoz DO Work Phone: Orthopaedics Comment on above: Trochanteric bursiti s of right hip (Primary Dx) Start: 12-09-2021 End: 12-09-2021 ambulatory Alexis [place] II Other [facility] Other Start: 12-09-2021 Office outpatient vi sit 25 minutes Alexis [place] II [facility] Start: 11-17-2021 End: 11-17-2021 ambulatory Alexis [place] II Other [facility] Other Start: 11-17-2021 Office outpatient ne w 45 minutes Alexis [place] II [facility] Start: 06-02-2017 End: 06-03-2017 Ambulatory DEFAULT PHYSICIAN Facility:[facility] Start: 05-15-2017 End: 05-16-2017 Ambulatory DEFAULT PHYSICIAN Facility:[facility] Start: 05-01-2017 End: 05-02-2017 Ambulatory DEFAULT PHYSICIAN Facility:[facility] Procedures Date Procedure Procedure Detail Performing Clinician Start: 12-24-2022 Lobectomy of thyroid gland Jose GARCIA Start: 02-14-2022 Adult depression scr eening assessment Shiraz Bo DO Work Phone: Start: 12-31-2021 Arthrocentesis aspir &/inj major jt/bursa w/o us Breezy Muñoz DO Work Phone: Start: 12-15-2020 [facility] Breezy sotelo DO Work Phone: Hysterectomy Jose GARCIA Laparoscopy Jose GARCIA Other bilateral liga tion and division of fallopian tubes Jose GARCIA partial colectomy Jose LANGLEY Tonsillectomy Jose GARCIA Plan of Treatment Date Care Activity Detail Author Start: 2036 HEPATITIS B (1 of 3 - Risk 3-dose series) HEPATITIS B (1 of 3 - Risk 3-dose series) [facility] Start: 09-11-2024 Tobacco Screening Tobacco Screening [facility] Start: 08-21-2024 Adult BMI Screening Adult BMI Screening [facility] Start: 06-28-2024 Adult BMI Screening Adult BMI Screening [facility] Start: 06-28-2024 Tobacco Screening Tobacco Screening [facility] Start: 12-15-2023 DIABETES SCREEN DIABETES SCREEN [facility] Start: 08-30-2023 End: 08-30-2023 Patient encounter procedure 08/30/2023 8:15 AM EST Office Visit [facility] [address] [place] [id number] Evans Anderson, PAAndrewC [address] [facility] [place] [address] [facility] Start: 02-24-2023 Influenza vaccination Influenza Vaccine [facility] Start: 02-14-2023 Adult depression screening assessment DEPRESSION SCREENING [facility] Start: 02-24-2022 Influenza vaccination INFLUENZA (#1) [facility] Start: 12-15-2021 Colonoscopy COLONOSCOPY [facility] Start: 12-15-2021 COLORECTAL CANCER SCREENING COLORECTAL CANCER SCREENING [facility] Start: 2021 COLOGUARD (FIT-DNA) COLOGUARD (FIT-DNA) [facility] Start: [address] COLONOGRAPHY [facility] Start: 12-26-2021 FECAL OCCULT BLOOD FECAL OCCULT BLOOD [facility] Start: 2021 LIPID SCREEN LIPID SCREEN [facility] Start: 2021 SIGMOIDOSCOPY SIGMOIDOSCOPY [facility] Start: 2016 Mammography MAMMOGRAM [facility] Start: 2006 HPV TESTING HPV TESTING [facility] Start: 1997 PAP TESTING PAP TESTING [facility] Start: 1995 DTaP,Tdap and Td Vaccines (1 - Tdap) DTaP,Tdap and Td Vaccines (1 - Tdap) [facility] Start: 1995 HEPATITIS B (1 of 3 - Risk 3-dose series) HEPATITIS B (1 of 3 - Risk 3-dose series) [facility] Start: 1995 Urine microalbumin profile DTAP,TDAP,TD (1 - Tdap) [facility] Start: 1994 Adult BMI Follow Up Plan Adult BMI Follow Up Plan [facility] Start: 1994 HIV SCREENING HIV SCREENING [facility] Start: 1994 MMR (1 of 2 - Risk 2-dose series) MMR (1 of 2 - Risk 2-dose series) [facility] Start: 1988 Adult depression screening assessment DEPRESSION SCREENING [facility] Start: 1986 MENINGOCOCCAL B: Consider based on risk (1 of 4 - Increased Risk Bexsero 2-dose series) MENINGOCOCCAL B: Consider based on risk (1 of 4 - Increased Risk Bexsero 2-dose series) [facility] Start: 1977 HEPATITIS A (1 of 2 - Risk 2-dose series) HEPATITIS A (1 of 2 - Risk 2-dose series) [facility] Start: 1976 COVID-19 VACCINE (#1) COVID-19 VACCINE (#1) [facility] Immunizations Immunization Date Immunization Notes Care Provider Kati swift 05-03-2012 influenza, whole Jose [place] [facility] 05-03-2012 influenza virus vaccine, unspecified formulation Evans Anderson PA-C Work Phone: [facility] Payers Date Payer Category Payer Private Health Insurance [facility] [id number] 2022-Present [phone] [address] [place] [address] [id number] 2020 Medicaid [facility] MEDICAID [facility] MEDICAID [id number] 2020-Present [phone] [address] [place] [address] Medicaid [id number] 2020 Medicaid [facility] MEDICAID [facility] PLAN MEDICAID [facility] [id number] 2020-Present [phone] [address] [place] [address] Medicaid [id number] 1976 Unknown [id number] 2.16.840.1.915752.3.579. 2.593 1976 Unknown [id number] 2.16.840.1.312303.3.579. 2.593 1976 Unknown [id number] 2.16.840.1.270200.3.579. 2.593 1976 Unknown [id number] 2.16.840.1.840633.3.579. 2.593 1976 Unknown [id number] 2.16.840.1.730028.3.579. 2.593 1976 Unknown [id number] 2.16.840.1.083789.3.579. 2.593 1976 Unknown [id number] 2.16.840.1.085859.3.579. 2.593 1976 Unknown [id number] 2.16.840.1.977950.3.579. 2.593 1976 Unknown [id number] 2.16.840.1.038899.3.579. 2.593 1976 Unknown [id number] 2.16.840.1.220506.3.579. 2.593 1976 Unknown [id number] 2.16.840.1.111938.3.579. 2.593 1976 Unknown [id number] 2.16.840.1.837299.3.579. 2.593 1976 Unknown [id number] 2.16.840.1.570091.3.579. 2.593 1976 Unknown [id number] 2.16.840.1.315913.3.579. 2.593 1976 Unknown [id number] 2.16.840.1.986895.3.579. 2.593 1976 Unknown [id number] 2.16.840.1.139241.3.579. 2.593 1976 Unknown [id number] 2.16.840.1.838915.3.579. 2.593 1976 Unknown [id number] 2.16.840.1.800270.3.579. 2.593 1976 Unknown [id number] 2.16.840.1.491545.3.579. 2.593 1976 Unknown [id number] 2.16.840.1.747556.3.579. 2.593 1976 Unknown [id number] 2.16.840.1.461118.3.579. 2.593 1976 Unknown [id number] 2.16.840.1.455839.3.579. 2.593 1976 Unknown [id number] 2.16.840.1.213470.3.579. 2.593 1976 Unknown [id number] 2.16.840.1.714336.3.579. 2.1286 1976 Unknown [id number] 2.16.840.1.951235.3.579. 2.1286 1976 Unknown [id number] 2.16.840.1.921257.3.579. 2.1286 1976 Unknown [id number] 2.16.840.1.061358.3.579. 2.1286 1976 Unknown [id number] 2.16.840.1.784233.3.579. 2.1286 1976 Unknown [id number] 2.16.840.1.977425.3.579. 2.727 1976 Unknown [id number] 2.16.840.1.200359.3.579. 2.727 1976 Unknown [id number] 2.16.840.1.321828.3.579. 2.727 1976 Unknown [id number] 2.16.840.1.692983.3.579. 2.727 1976 Unknown [id number] 2.16.840.1.879445.3.579. 2.727 1976 Unknown [id number] 2.16.840.1.606286.3.579. 2.727 1976 Unknown [id number] 2.16.840.1.623024.3.579. 2.727 1976 Unknown [id number] 2.16.840.1.832011.3.579. 2.727 1976 Unknown [id number] 2.16.840.1.961103.3.579. 2.1259 1976 Unknown [id number] 2.16.840.1.618045.3.579. 2.1259 1976 Unknown [id number] 2.16.840.1.599693.3.579. 2.1259 1976 Unknown [id number] 2.16.840.1.219208.3.579. 2.1259 1976 Unknown [id number] 2.16.840.1.892049.3.579. 2.1259 1976 Unknown [id number] 2.16.840.1.850509.3.579. 2.9 1976 Unknown [id number] 2.16.840.1.058343.3.579. 2.9 1976 Unknown [id number] 2.16.840.1.328550.3.579. 2.9 1976 Unknown [id number] 2.16.840.1.142067.3.579. 2.9 1976 Unknown [id number] 2.16.840.1.933207.3.579. 2.9 1976 Unknown [id number] 2.16.840.1.707934.3.579. 2.9 1976 Unknown [id number] 2.16.840.1.412744.3.579. 2.9 1976 Unknown [id number] 2.16.840.1.073345.3.579. 2.9 1976 Unknown [id number] 2.16.840.1.765362.3.579. 2.9 1976 Unknown [id number] 2.16.840.1.275881.3.579. 2.9 1976 Unknown [id number] 2.16.840.1.453814.3.579. 2.9 1976 Unknown [id number] 2.16.840.1.654268.3.579. 2.1258 1976 Unknown [id number] 2.16.840.1.868202.3.579. 2.1259 1976 Unknown [id number] 2.16.840.1.223783.3.579. 2.1259 1959 Unknown [id number] 2.16.840.1.920627.19 1959 Unknown [id number] Unknown Social History Date Type Detail Facility Start: 08-06-2020 End: 06-28-2023 Sex Assigned At [facility] [employer] Other Start: 07-27-2016 End: 11-28-2023 Tobacco smoking status NHIS Never smoked tobacco [facility] Start: 07-27-2016 End: 04-12-2023 Tobacco use and exposure Smokeless tobacco non-user [facility] Start: 12-15-2020 End: 09-12-2023 Alcohol intake Current non-drinker of alcohol (finding) [facility] Start: 1975 Sex Assigned At Not on file [facility] Start: 01-07-2022 End: 02-21-2022 Exposure to SARS-CoV-2 (event) Not sure [facility] Tobacco Past [facility] Comment on above: stopped 12 years ago stopped 12 years ago Tobacco smoking status No Smoking Status Entered [facility] Tobacco smoking status Never [facility] Start: 08-06-2020 End: 06-28-2023 History of Social function [facility] Functional Status Date Assessment Result Facility 11-28-2023 Functional Status N/A [facility] 05-29-2023 Functional Status N/A [facility] 11-24-2022 Functional Status N/A [facility] 04-26-2022 Functional Status N/A [facility] Clinical Notes 12-14-2020 to 11-28-2023 Telephone Encounter [...] include: ?8 oz (237 mL) of milk, txkcajk-debszpcrluxp-vvtjw milk, and calcium-fortifiedfruit juice. Calcium-fortified means that [...] ?Spinach (cooked), rhubarb, beets, sweet potatoes, and Cuban chard. ?Peanuts. ?Potato chips, maori fries, and baked potatoes with skin on. ?Nuts and nut products. ?Chocolate. If you regularly take a diuretic medicine, make sure to eat at least 1 or 2 servings of fruits or vegetables that are high in potassium each day. These include: ?Avocado. ?Banana. ?[place], prune, carrot, or tomato juice. ?Baked potato. [...] magnesium, fish oil, or vitamin B6. Take xnur-lub-skzmeqv and prescription medicines only as told by [...] Casseroles. Pizza. Lasagna. Frozen meals. Potato chips. Romanian fries. The items listed above may not [...] provider. Document Revised: 09/22/2022 Document Reviewed: 09/22/2022 NOWBOX Patient Education 2022 JDCPhosphate. Follow Up Care 05/29/2023 15:22:48 With:LESLIE JUNG PA-C, URL Address: [address] [place] [address] When: Unknown [facility] 11-28-2023 Note - From: Sally Linda To: EU - Administrative; Sent: 11/28/2023 09:53:09 EDT Show up: 02/25/2024 09:52:00 EDT Subject: Ambulatory Reminder Due Date/Time: 11/24/2024 09:53:00 EDT Reminder/Recall Patient needs scheduled for a 1 yr f/u with MAGALYS and BEN with DA, due in 11/2024 [facility] 09-20-2023 Miscellaneous Notes [facility] Ortho called to say that they are out of network for [facility]'s insurance. A referral form will be sent once she selects an orthopedic in-network documented in this encounter [facility] 09-20-2023 Telephone encounter Note [facility] Ortho called to say that they are out of network for Stacey's insurance. A referral form will be sent once she selects an orthopedic [facility]-network [facility] [employer] 09-12-2023 History of Presen t illness Narrative [facility] [address] [place] [address] Patient: Stacey Sahu Sex: female : 1975 Age: 48 y.o. PCP: ESSIE RYAN BENCH [employer] 09/12/2023 Stacey Sahu is here for a(n) [...] patches min: NSAIDS, ice/heat, accupuncture, inj at [place] [facility] Mod relief: Narcotics Sign: Steroid inj by Ortho) for the symptoms. The treatment provided moderate relief. The effect of pain on patient's ADLS: Moderate Impairment. Past Medical History: Diagnosis Date Arthritis Bipolar disorder ([facility]) Chronic pain disorder Crohn's colitis ([facility] Depression GERD (gastroesophageal reflux disease) H/O methicillin resistant Staphylococcus aureus infection Hyperlipidemia Joint pain Pleurisy Pulmonary hypertension (CMS-HCC) Pulmonary hypertension (CMS-HCC) Sleep apnea cpap Past Surgical History: Procedure Laterality Date COLON SURGERY part of bowel removed d/t crohns dx HYSTERECTOMY 2017 INJECTION BURSA LARGE JOINT Right Hip Right 09/01/2023 Performed by Pj Gannon MD at [facility] INJECTION SPINE TRANSFORAMINAL Right L 5,1 Nroot Right 05/26/2023 Performed by Pj Gannon MD at [facility] RELEASE DEQUERVAINS CONTRACTURE Right 10/17/2018 Performed by Dereck Bagley DO at [facility] THYROIDECTOMY, PARTIAL Allergies Allergen Reactions Penicillins [...] while taking medications prescribed by this clinic. [facility]opedic Referral - Right Hip pain It [...] accurate and complete. Essie Dutton CNA 09/12/23 2662 ADELA Metz 09/12/23 2759 documented in this encounter [facility] 07-11-2023 Evaluation note Encounter Date Diagnosis [...] treatment plan. Patient left in stable condition [employer] [facility] Other 01-03-2024 History of Present illness Narrative* Evans Anderson PA-C - 06/28/2023 10:45 AM EST [facility] [address] [place] [address] Patient: Stacey Sahu Sex: female : 1975 Age: 48 y.o. PCP: ADELA SMITH 06/28/2023 Stacey Sahu is here for a(n) [...] min: NSAIDS, ice /heat, accupuncture, inj at [place] [facility] Mod relief: Narcotics Sign: Steroid inj by Ortho) for the symptoms. The treatment provided moderate relief. The effect of pain on patient's ADLS: Minimal Impairment. Past Medical History: Diagnosis Date Arthritis Bipolar disorder ([facility]) Chronic pain disorder Crohn's colitis ([facility]) Depression GERD (gastroesophageal reflux disease) H/O methicillin resistant Staphylococcus aureus infection Hyperlipidemia Joint pain Pleurisy Pulmonary hypertension ([facility]) Pulmonary hypertension ([facility]) Sleep apnea cpap Past Surgical History: Procedure Laterality Date COLON SURGERY part of bowel removed d/t crohns dx HYSTERECTOMY 2017 INJECTION SPINE TRANSFORAMINAL Right L 5,1 Nroot Right 05/26/2023 Performed by Pj Gannon MD at [facility] RELEASE DEQUERVAINS CONTRACTURE Right 10/17/2018 Performed by Dereck Bagley DO at [facility] THY[facility], PARTIAL Allergies Allergen Reactions Penicillins [...] Anderson PA-C 06/28/23 1229 [facility] Hospital Discharge instructions Patient Education 05/29/2023 15:17:27 Kidney Stones, Bjpi-qe-Pehv Kidney Stones Kidney stones are rock-like masses [...] Follow these instructions at home: Medicines Take cbyl-xqi-veabwax and prescription medicines only as told by [...] provider. Document Revised: 02/14/2022 Document Reviewed: 02/14/2022 NOWBOX Patient Education 2022 JDCPhosphate. Follow Up Care 11/08/2022 13:29:10 With:JOSE FELIX, Jose Palafox, URL Address: [facility] [address], [place] [phone] When: Unknown Comments:4 mos w/ metabolic w/u [facility] 05-16-2023 NoteNew patient here to re-establish care. Needs cleared for thyroid surgery with Dr. Caceres. Was last seen by Dr. Blackwood in 2018 for pulmonary hypertension. Denies chest pain and SOB. Does feel palpitations 3-4 times a day. Review of Systems Cardiovascular: Positive for palpitations. All other systems reviewed and are negative.[facility] 11-08-2022 NoteCardiovascular Medicine [facility] SUBJECTIVE Chief Complaint Patient presents with [...] Preserved LVEF - RVSP 27mmHg Normal cors ([facility] 03/2012) Exercise stress 2014- no ischemia NIRMALA [...] Final Atrial Rate 05/01/2017 90 BPM Final [place] Interval 05/01/2017 122 ms Final QRS DURATION 05/01/2017 98 ms Final QT Interval 05/01/2017 374 ms Final QTC CALCULATION(BEZET) 05/01/2017 457 ms Final P [place] 05/01/2017 46 degrees Final R-[place] 05/01/2017 60 degrees Final T Wave [place] 05/01/2017 37 degrees Final Diagnosis 05/01/2017 Final [...] ventricular systolic function (more content not included)... [facility]02-09-2023 NoteCONSULTATION CONSULTATION DATE: 08/04/2022 HISTORY OF PRESENT [...] medications in three months, unless otherwise indicated.[facility] [id number] NotePROCEDURE: XR HIP RT 2 3V WO [...] Electronically authenticated by: PREET RODRIGEZ Date: 2022-07-07 15:33[facility]01-12-2023 NoteCONSULTATION CONSULTATION DATE: 07/07/2022 HISTORY OF [...] procedure, and she agrees to move forward.[facility] [id number] NoteCONSULTATION CONSULTATION DATE: 06/09/2022 HISTORY OF PRESENT [...] will re-evaluate with application of the diclofenac.[facility] 04-26-2022 Hospital Discharge instructions Patient Education [...] 06/12/2006 Document Revised: 03/01/2019 Document Reviewed: 05/12/2017 NOWBOX Patient Education 2020 JDCPhosphate. 04/26/2022 12:17:47 Hematuria, Adult Hematuria, Adult Hematuria [...] Follow these instructions at home: Medicines Take nfjz-swc-zaksxyy and prescription medicines only as told by [...] or the blood stops without treatment. Take cfnh-ynv-ebvwaso and prescription medicines only as told by your health care provider. Drink enough fluid to keep your urine clear or pale yellow. This information is not intended to replace advice given to you by your health care provider. Make sure you discuss any questions you have with your health care provider. Document Released: 06/12/2006 Document Revised: 11/06/2019 Document Reviewed: 07/15/2017 NOWBOX Patient Education 2020 JDCPhosphate. Follow Up Care 04/22/2022 08:39:58 With:JOSE FELIX, Jose Palafox, URL Address: [address] [place] [phone] When:Within 6 Month(s) Comments:6 mo fu with MAGALYS [facility] 10-04-2022 NoteCONSULTATION PROCEDURE DATE: 03/29/2022 PREOPERATIVE DIAGNOSIS: [...] Will be followed up in the office.[facility] [id number] NoteCONSULTATION CONSULTATION DATE: 03/22/2022 CHIEF COMPLAINT: Right [...] up subsequent to that. CC: Essie Ryan [facility]09-13-2022 Hospital Discharge instructions Patient Education [...] [facility] [address], [place] [address]- Business (1) When: Unknown Comments:Office will call to schedule follow up [facility]08-29-2022 NoteHNO ID: [id number] Author: Shiraz Bo, DO Service: ? Author Type: Physician Type: Progress Notes Filed: 03/13/2022 1:15 PM Note Text: [facility] [place] [facility] [place] [facility] - Medical Spine Initial [...] gel - no benefit Therapies PT at [facility] in [place] in June 2021 - 2 times per week for 1 month, exercises, TENS, ice - no relief Ice/heat Prior spine/MSK interventions: -12/31/21 Dr. Muñoz: R GTB CSI - minimal relief for 1 day. 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[place], [place] Litigation: No Workers' Compensation: No YELLOW [...] x 4 Crohn's disease without complication (HCC) [id number] Pulmonary Htn (Hcc) Obese Nirmala (Obstructive Sleep Apnea) Gerd (Gastroesophageal Reflux Disease) Crohn's Disease of Intestine (Hcc) Enterolith of Small Intestine (Hcc) Bipolar Disease, Chronic (Hcc) Other Hyperlipidemia PAST MEDICAL HISTORY Diagnosis Date Abnormal uterine bleeding s/p hysterectomy Bipolar disorder (HCC) Crohn's disease of intestine (HCC) s/p surgery GERD (gastroesophageal reflux disease) Obes (more content not included)...[facility]08-29-2022 History of Present illness Narrative* Shiraz Bo, - 02/21/2022 12:46 PM EDT Images from the original note were not included. [facility] [place] [facility] - Medical [...] gel - no benefit Therapies PT at [facility] in [place] in June 2021 - 2 times per week for 1 month, exercises, TENS, ice - no relief Ice/heat Prior spine/MSK interventions: -12/31/21 Dr. Muñoz: R GTB CSI - minimal relief for 1 day. 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 Author Type: Physician Type: Progress Notes Filed: 01/17/2022 3:48 PM Note Text: SERVICE DATE: January 17, 2022 PCP: Essie Ryan, [employer], [employer] Patient was self-referred. Subjective Patient ID: Stacey [...] x 4 Crohn's disease without complication (HCC) [id number] Pulmonary Htn (Hcc) Obese Nirmala (Obstructive Sleep [...] (primary encounter diagnosis) Plan: CONSULT TO [facility] (M51.27) Lumbago-sciatica due to displacement [...] Sahu DATE: January 17, 2022 TIME: 3:46 [facility]07-25-2022 History of Present illness Narrative* Breezy Muñoz DO - 01/17/2022 3:42 PM EDT SERVICE DATE: January 17, 2022 PCP: Essie Ryan, [employer], [employer] Patient was self-referred. Subjective Patient ID: Stacey [...] x 4 Crohn's disease without complication (HCC) [id number] Pulmonary Htn (Hcc) Obese Nirmala (Obstructive Sleep [...] (primary encounter diagnosis) Plan: CONSULT TO [facility] (M51.27) Lumbago-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 Plan: CONSULT TO [facility] Office Visit on 01/17/22 CONSULT TO [...] 2022 TIME: 3:46 PM [facility] NoteHNO ID: [id number] Author: Breezy Muñoz DO Service: ? Author [...] x 4 Crohn's disease without complication (HCC) [id number] Pulmonary Htn (Hcc) Obese Nirmala (Obstructive Sleep [...] trochanteric bursa Informed Consent Consent Obtained: Verbal Suring Protocol A moment to CARE was completed. (more content not included)...[facility]07-08-2022 History of Present illness Narrative* Breezy Muñoz, [...] x 4 Crohn's disease without complication (HCC) [id number] Pulmonary Htn (Hcc) Obese Nirmala (Obstructive Sleep [...] trochanteric bursa Informed Consent Consent Obtained: Verbal Suring Protocol A moment to CARE was completed. [...] 2021 TIME: 1:05 PM [facility] Evaluation note* Encounter Date Diagnosis Assessment [...] refer her to Dr. Christian with the [facility]. [facility] Other 05-25-2022 Evaluation note* Encounter Date Diagnosis [...] I will see her with those results. [facility] Other 06-21-2021 History of Past illness Narrative* Problem Noted Date Resolved Date Generalized abdominal pain 12/14/202012/16 documented as of this encounter (statuses as of 12/31/2021) [facility]06-[facility] History of Past illness Narrative* Problem Noted Date Resolved Date Generalized abdominal pain 12/14/202012/16 documented as of this encounter (statuses as of 01/17/2022) [facility]06-[facility] History of Past illness Narrative* Problem Noted Date Resolved Date Generalized abdominal pain 12/14/202012/16 documented as of this encounter (statuses as of 03/13/2022) [facility] No data available for this section [facility] Future Appointments Appointment Date:10/24/2022 11:30:00 AM Scheduled Provider:Jose GARCIA MD Location:[facility] Appointment Type:URO Office Visit [facility] [place] Evaluation + Plan note Future Appointments Appointment Date:05/29/2023 02:30:00 PM Scheduled Provider:Jose GARCIA MD Location:[facility] Appointment Type:URO Office Visit Future Scheduled Tests Laboratory* Calprotectin, Fecal 11/24/22 * CBC w/ Auto Diff 11/24/22 * Comprehensive Metabolic Panel 11/24/22 * C-Reactive Protein 11/24/22 Radiology* CT Abdomen/Pelvis w/contrast (enterography) 11/24/22 [facility] Evaluation + Plan note Future Appointments Appointment Date:05/29/2023 02:30:00 PM Scheduled Provider:Jose GARCIA MD Location:[facility] Appointment Type:URO Office Visit Future Scheduled Tests Laboratory* Calprotectin, Fecal 11/24/22 * CBC w/ Auto Diff 11/24/22 * Comprehensive Metabolic Panel 11/24/22 * C-Reactive Protein 11/24/22 [facility] Future Appointments Appointment Date:02/02/2023 01:00:00 PM Scheduled Provider:Ignacia KHAN MD [place] Appointment Type:BADH Follow Up Appointment Date:05/29/2023 02:30:00 PM Scheduled Provider:Jose GARCIA MD Location:[facility] Appointment Type:URO Office Visit Future Scheduled Tests Laboratory* Calprotectin, Fecal 11/24/22 [facility] Future Appointments Appointment Date:05/29/2023 02:30:00 PM Scheduled Provider:Jose GARCIA MD Location:[facility] Appointment Type:URO Office Visit Diagnostic Tests Pending * Calprotectin, Fecal 02/02/23 [facility] Future Appointments Appointment Date:10/02/2023 03:00:00 PM Scheduled Provider:Jose GARCIA MD Location:[facility] Appointment Type:URO Office Visit [facility] evaluation note* Diagnosis Trochanteric bursitis of right hip- Primary Enthesopathy of hip region [facility] 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 [facility]* Diagnosis Tendinopathy of right gluteal region- Primary Trochanteric bursitis of right hip Enthesopathy of hip region Chronic bilateral low back pain without sciatica Lumbar spondylosis Lumbosacral spondylosis without myelopathy [facility]* Diagnosis Lumbar radiculopathy- Primary Thoracic or lumbosacral neuritis or radiculitis, unspecified [facility] Diagnosis Chronic right hip pain- Primary documented in this encounter [facility] Narrative - Reported* Type Description Date Medical History acid reflux Surgical History biopsy of intestines Surgical History hysterectomy [facility] Other Hospital Discharge instructions No data available for this section [facility] InstructionsNot on filedocumented in this encounter [facility]Not on filedocumented in this encounter [facility] SystemInstructionsNot on filedocumented in this encounter [facility] No data available for this section [facility] CenterReason for referral (narrative)* Consultation (Routine) - Pending Review Specialty Diagnoses / Procedures Referred By Wan gamboa Referred To Contact Orthopedic Surgery Diagnoses Chronic right hip pain Imani Chan [employer] [address] [place] [address] Bang Cuellar MD [address] [place] [address] Referral ID Status Reason Start Date Expiration Date Visits Requested Visits Authorized [id number] Pending Review Specialty Services Required 09/12/2023 09/11/2024 1 1 [facility] Summary Purpose Family History No Family History [...] FoundDocuments on File Type Date Recorded 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 60-74 MINUTES Shiraz Bo DO [address] [place] [address] Referral ID Status Reason Start Date Expiration Date Visits Requested Visits Authorized [id number] Pending Review PCP Requested Referral 02/21/2022 02/21/2023 1 1 Specialty Diagnoses / Procedures Referred By Contac t Referred To Contact Sports Medicine Diagnoses Trochanteric bursitis of right hip Tendinopathy of right gluteal region Procedures CONSULT TO SPORTS MEDICINE OFFICE/OUTPATIENT [facility] 60-74 MINUTES Shiraz Bo, DO [address] [place] [address] Referral ID Status Reason Start Date Expiration Date Visits Requested Visits Authorized [id number] Authorized PCP Requested Referral 02/21/2022 02/21/2023 1 1 Specialty Diagnoses / Procedures Referred By Contac t Referred To Contact [facility] [place] Diagnoses Trochanteric bursitis of right hip Lumbago-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 Procedures CONSULT TO [facility] OFFICE/OUTPATIENT [facility] 60-74 MINUTES Breezy Muñoz, [place] [address] Referral ID Status Reason Start Date Expiration Date Visits Requested Visits Authorized [id number] Authorized PCP Requested Referral 01/17/2022 01/17/2023 1 1 Reason evaluate and treat. Gluteal tendon tear vs greater trochanteric bursitis Please refer to Bang Christian MD, Orthopaedic Surgery, [facility] Diagnosis 1 Trochanteric bursiti s, right hip (M70.61) Referral Organization [facility] Ortho pedics Referring Provider First Name Alexis Referring Provider Last Name Dany ARDON Referring Provider Specialty Orthopedic Surgery Referred Organization [facility] Referred Address [address],[place], [place],[address] Referred Provider Specialty ORTHOPEDIC S URGEON Referral [...] section and content) DATE CREATED AUTHOR 12/19/2017 [facility] DATE CREATED AUTHOR AUTHOR'S ORGANIZ ATION 12/08/2021 [facility] DATE CREATED AUTHOR AUTHOR'S ORGANIZ ATION 03/26/2022 [facility] DATE CREATED AUTHOR AUTHOR'S ORGANIZ ATION 12/04/2022 [facility] DATE CREATED AUTHOR AUTHOR'S ORGANIZ ATION 12/04/2022 [facility] DATE CREATED AUTHOR AUTHOR'S ORGANIZ ATION 09/12/2023 [facility] DATE CREATED AUTHOR AUTHOR'S ORGANIZ ATION 11/29/2023 [facility] DATE CREATED AUTHOR AUTHOR'S ORGANIZ ATION 03/01/2024 [facility] dical Specialists EPIC REASON FOR VISIT (unrecogniz ed section and content) Reason Comments New Specialty Diagnoses / Procedures Referred By Contac t Referred To Contact Orthopedics / ORTHOPAEDIC SURGERY Diagnoses Greater Trochanteric Bursitis right hip vs Gluteal Tendon tear *OUTSIDE IMG PT TO BRING Procedures LANA NEW NO XRAY Alexis Saenz II, MD [address] [place] [address] Breezy Muñoz DO [facility] [address] [place] [address] Referral ID Status Reason Start Date Expiration Date Visits Requested Visits Authorized [id number] Authorized Financial Clearance Not Required 12/24/2021 01/23/2022 99 99 Reason Comments Follow Up Reason Comments New Patient Evaluation Lower back pain/R ight side sciatica Specialty Diagnoses / Procedures Referred By Contac t Referred To Contact [facility] [place] Diagnoses Trochanteric bursitis of right hip Lumbago-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 Procedures CONSULT TO [facility] OFFICE/OUTPATIENT NEW HIGH MDM 60-74 MINUTES Breezy Mu[facility]oz [facility] [address] [place] [address] Referral ID Status Reason Start Date Expiration Date V isits Requested Visits Authorized [id number] Closed PCP Requested Referral 01/17/2022 01/17/2023 1 1 Reason Comments Hip Pain Reason Comments Hip Pain Source Comments (unrecognize d section and content) In the event this informatio n is protected by the Federal Confidentiality of Alcohol and Drug Abuse Patient Records regulations: The Federal rules restrict any use of the information to criminally investigate or prosecute any alcohol or drug abuse patient.[facility] the event this information is protected by the Federal Confidentiality of Alcohol and Drug Abuse Patient Records regulations: The Federal rules restrict any use of the information to criminally investigate or prosecute any alcohol or drug abuse patient.[facility] the event this information is protected by the Federal Confidentiality of Alcohol and Drug Abuse Patient Records regulations: The Federal rules restrict any use of the information to criminally investigate or prosecute any alcohol or drug abuse patient.[facility] Care Teams (unrecognized sec tion and content) Paid Internship Relationship Specialty Start Date End Date Essie Ryan [facility] PCP - General Family Practice 07/22/16 Adán Torres Obstetrics 07/22/16 Alexis Saenz II, MD [address] [place] [address] Referring Orthopedics 12/13/21 Paid Internship Relationship Specialty Start Date End Date Essie Ryan [facility] PCP - General Family Practice 07/22/16 Adán Torres, DO Obstetrics 07/22/16 Alexis Saenz II, MD [address] [place] [address] Referring Orthopedics 12/13/21 Paid Internship Relationship Specialty Start Date End Date Essie Ryan [facility] PCP - General Family Practice 07/22/16 Adán Torres, DO Obstetrics 07/22/16 Alexis Saenz II, MD [address] [place] [address] Referring Orthopedics 12/13/21 Paid Internship Relationship Specialty Start Date End Date Essie Ryan [facility] [address] [place] [address] PCP - General Nurse Practitioner 10/03/18 Paid Internship Relationship Specialty Start Date End Date Essie Ryan [facility] [address] [place] [address] PCP - General Nurse Practitioner 10/03/18 Paid Internship Relationship Specialty Start Date End Date CharliAlem haa [facility] [address] [place] [address] PCP - General Nurse Practitioner 10/03/18 FOR [...] BE BASED ON THE PRIMARY CLINICAL RECORDS. [facility], [facility]. provides no warranty or guarantee of the accuracy or completeness of information in this document.
[2024-03-06 07:31] LABS: Alanine Aminotransferase 23 U/L (14-59); Albumin Level 3.2 g/dL (3.4-5.0); Alkaline Phosphatase 59 U/L (46-116); Aspartate Amino Transferase 14 U/L (15-37); Bilirubin Direct 0.1 mg/dL (0.0-0.2); Bilirubin Total 0.3 mg/dL (0.2-1.0); Chol HDL Ratio 3.9; Cholesterol 227 mg/dL (<=200); Globulin 3.2 g/dL; HDL Cholesterol 58 mg/dL (40-60); Total Protein 6.4 g/dL (6.4-8.2); Triglycerides 98 mg/dL (<=150); VLDL CHOLESTEROL 19.6 mg/dL
== END 2024-03-06 06:12 | disposition home or self-care (01) ==
LOC: LAB 06:13
PROVIDERS: PCP Nurse Practitioner; Visit Provider Nurse Practitioner
DX: E78.2 Mixed hyperlipidemia (principal)
CPT/HCPCS: 36415; 80061; 80076

== ENCOUNTER 2024-03-26 13:48 | Outpatient (OUT) | payer OTHER, SELFPAY ==
--- NOTE | 2024-03-26 13:52 | MR_ITS ---
The [address] [address] Patient Name: GAMAL FIGUEROA MRN: [facility]:[id number] date: 1975 Sex: F Assigned Patient Location: MRI Current Patient Location: Accession/Order Number: [id number] Exam Date: 03/26/2024 14:05 Report Date: 03/27/2024 15:34 At the request of: NON-STAFF PHYSICIAN Procedure: MR hip RT wo con HISTORY: Chronic right hip pain. Evaluate for arthritis. MR hip RT wo con: 03/26/2024 2:05 PM EDT COMPARISON: CT scan abdomen and pelvis 09/21/2022 and Radiographs right hip 08/29/2023. TECHNIQUE: Multiplanar, multisequence MRI images of the pelvis and right hip were obtained without contrast. FINDINGS: The bone marrow signal intensity is age appropriate. There is severe facet joint arthropathy again seen on the left at the L5-S1 level. There are moderate to severe degenerative changes again seen of the anteroinferior aspect of the right sacroiliac joint with a small amount of adjacent subchondral bone marrow edema in the anteroinferior aspect of the right sacral ala. No significant degenerative change of the left sacroiliac joint is seen. On the large [id number] images of the pelvis there appear to be at least mild degenerative changes of the left hip joint with prominent osteophyte formation along the lateral and posterolateral aspect of the acetabulum. There is no evidence of avascular necrosis or fracture of the right hip. The superolateral aspect of the labrum of the right hip is diminutive in size and blunted. There is prominent osteophyte formation along the lateral and posterolateral aspect of the right acetabulum. The right acetabulum appears mildly hypoplastic with uncovering of the lateral aspect of the right femoral head. There is at least mild joint space narrowing involving the superolateral aspect of the right hip joint. There is no joint effusion of the right hip. There is moderate tendinopathy of the anterior right gluteus medius tendon at its insertion on the greater trochanter. There is a moderate amount of soft tissue edema adjacent to the tendon and greater trochanter in this region. There is also mild tendinopathy of the distal right gluteus minimus tendon. No iliopsoas tendinopathy or iliopsoas bursitis. There is moderate tendinopathy of the right common hamstring tendon complex at its origin from the ischial tuberosity. MR/MR hip RT wo con IMPRESSION: 1. There is mild tendinopathy of the distal right gluteus minimus tendon and moderate tendinopathy of the anterior distal right gluteus medius tendon at their insertion on the greater trochanter with an adjacent moderate greater trochanteric bursitis in this region. 2. Moderate tendinopathy of the right common hamstring tendon complex at its origin from the ischial tuberosity. 3. 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 There are at least mild degenerative changes of the superolateral aspect of the right hip with a degenerative tear of the superolateral aspect of the labrum. There is an associated large osteophyte projecting from the lateral and posterolateral aspect of the right acetabulum. 4. On the large [id number] images of the pelvis there are moderate to severe degenerative changes of the right sacroiliac joint and there appear to be at least mild degenerative changes of the left hip joint. Electronically authenticated by: HARPER VELASQUEZ Date: 03/27/2024 15:34
--- OUTSIDE RECORDS SUMMARY | 2024-03-26 13:55 | XMS_ITS | CCD ---
Author Organization [facility] Care Team Providers Care Fabrication Inspector Name Role Phone PHYSICIAN, DEFAULT Unavailable Unavailable PHYSICIAN, DEFAULT Unavailable Unavailable AICHHOLZ, ESSIE Unavailable Unavailable PHYSICIAN, DEFAULT Unavailable Unavailable PHYSICIAN, DEFAULT Unavailable Unavailable AICHHOLZ, ESSIE Unavailable Unavailable PHYSICIAN, DEFAULT Unavailable Unavailable PHYSICIAN, DEFAULT Unavailable Unavailable AICHJACOB, ESSIE Unavailable Unavailable Alexis Saenz II Unavailable AicEssie ha CNP Primary Care Provider Adán Torres Unavailable Dany ARDON MD, Robert M Unavailable Adán Torres DO Unavailable ESSIE RYAN Primary Care Physician [phone] Aicmatholz Essie BAH Primary Care Provider Adán Torres DO Unavailable Dany ARDON MD, Robert M Unavailable CAN VALERA Attending Unavailable CAN VALERA Consulting Unavailable AICHHOLZ, LENS BLOCKER ESSIE Primary Care Unavailable CAN VALERA Admitting Unavailable ANDREW ., DR MARKO Stafford Admitting Unavailable ANDREW ., DR MARKO Stafford Attending Unavailable AICHHOLZ, LENS BLOCKER ESSIE Primary Care Unavailable ARTURO VANEGAS Consulting Unavailable ANDREW ., DR MARKO Stafford Attending Unavailable MORALES ., DR MARKO Stafford Consulting Unavailable AICHHOLZ, LENS BLOCKER ESSIE Primary Care Unavailable ANDREW ., DR MARKO Stafford Admitting Unavailable ADRIANNA JIMENEZ Attending Unavailable ADRIANNA JIMENEZ Consulting Unavailable ADRIANNA JIMENEZ Admitting Unavailable AICHHOLZ, LENS BLOCKER ESSIE Primary Care Unavailable PAULETTE PHIPPS Unavailable AICHHOLZ, [facility] ESSIE Primary Care Unavailable GARCIA ., DR BAILEY Attending Unavailable GARCIA ., DR BAILEY Consulting Unavailable GARCIA ., DR BAILEY Admitting Unavailable WEST, DR PAULETTE León Consulting Unavailable MORALES ., DR MARKO Stafford Admitting Unavailable MORALES ., DR MARKO Stafford Attending Unavailable MORALES ., DR MARKO Stafford Consulting Unavailable AICHOLZ, [facility] ESSIE Primary Care Unavailable DELANEY ., ARTURO Consulting Unavailable MORALES ., DR MARKO Stafford Admitting Unavailable MORALES ., DR MARKO Stafford Attending Unavailable AICHHOLZ, [facility] ESSIE Primary Care Unavailable YOBANY ., DR RASMUSSEN Attending Unavailable AICHHOLZ, [facility] ESSIE Primary Care Unavailable YOBANY ., DR RASMUSSEN Admitting Unavailable WEST, DR PAULETTE León Consulting Unavailable YOBANY ., DR RASMUSSEN Consulting Unavailable [facility] Unavailable GARCIA ., DR BAILEY Admitting Unavailable GARCIA ., DR BAILEY Attending Unavailable GARCIA ., DR BAILEY Consulting Unavailable ZIEBER, DR PREET Pal[employer]ox Consulting Unavailable TIMMIS, DR RED Attending Unavailable TIMMIS, DR RED Consulting Unavailable TIMMIS, DR RED Admitting Unavailable AICHHOLZ, [facility] ESSIE Primary Care Unavailable ZIEBER, DR PREET [employer] Consulting Unavailable TIMMIS, DR RED Attending Unavailable TIMMIS, DR RED Consulting Unavailable TIMMIS, DR RED Admitting Unavailable AICHOLZ, [facility] ESSIE Primary Care Unavailable ZIEBER, DR PREET Pal[employer] Consulting Unavailable TIMMIS, DR RED Attending Unavailable TIMMIS, DR RED Consulting Unavailable AICHHOLZ, [facility] Primary Care Unavailable TIMMIS, DR RED Admitting Unavailable WEST, DR PAULETTE León Consulting Unavailable AICHHOLZ, [facility] ESSIE Primary Care Unavailable GARCIA ., DR BAILEY Attending Unavailable GARCIA ., DR BAILEY Consulting Unavailable GARCIA ., DR BAILEY Admitting Unavailable ZIEBER, DR PREET [employer] Consulting Unavailable LAKSHMIPATHY ., NARENDRANMONA Attending Marleni vailable AICHHOLZ, [facility] ESSIE Primary Care Unavailable LAKSHMIPATHY ., NARANTONIO Admitting Marleni vailable MORALES ., DR MARKO Stafford Admitting Unavailable MORALES ., DR MARKO Stafford Attending Unavailable MORALES ., DR MARKO Stafford Consulting Unavailable AICHOLZ, [facility] ESSIE Primary Care Unavailable DELANEY ., ARTURO Consulting Unavailable AICHHOLZ, LENS BLOCKER ESSIE Primary Care Unavailable WEST, DR PAULETTE León Consulting Unavailable GARCIA ., DR BAILEY Attending Unavailable GARCIA ., DR BAILEY Admitting Unavailable AICHHOLZ, LENS BLOCKER ESSIE Consulting Unavailable YOBANY ., DR RASMUSSEN Attending Unavailable YOBANY ., DR RASMUSSEN Consulting Unavailable AICHHOLZ, LENS BLOCKER ESSIE Primary Care Unavailable YOBANY ., DR RASMUSSEN Admitting Unavailable AICHHOLZ, LENS BLOCKER ESSIE Primary Care Unavailable AICHHOLZ, LENS BLOCKER ESSIE Attending Unavailable AICHHOLZ, LENS BLOCKER ESSIE Consulting Unavailable AICHHOLZ, LENS BLOCKER ESSIE Admitting Unavailable DELANEY ., ARTURO Admitting Unavailable DELANEY ., ARTURO Attending Unavailable AICHHOLZ, LENS BLOCKER ESSIE Primary Care Unavailable ZIEBER, DR PREET [employer] Consulting Unavailable DELANEY ., ARTURO Consulting Unavailable TIMMIS, DR RED Attending Unavailable TIMMIS, DR RED Consulting Unavailable TIMMIS, DR RED Admitting Unavailable AICHHOLZ, LENS BLOCKER ESSIE Primary Care Unavailable ZIEBER, DR PREET [employer] Consulting Unavailable DIAB ., EDNA Attending Unavailable DIAB ., EDNA Admitting Unavailable MARKER ., DR JIMÉNEZ Consulting Unavailable AICHHOLZ, LENS BLOCKER ESSIE Primary Care Unavailable DIAB ., EDNA Consulting Unavailable OWOYELE, MISTY Consulting Unavailable AICHHOLZ, LENS BLOCKER ESSIE Primary Care Unavailable AICHHOLZ, LENS BLOCKER ESSIE Attending Unavailable AICHHOLZ, LENS BLOCKER ESSIE Consulting Unavailable AICHHOLZ, LENS BLOCKER ESSIE Admitting Unavailable ZIEBER, DR PREET [employer] Consulting Unavailable MORALES ., DR MARKO Stafford Attending Unavailable MORALES ., DR MARKO Stafford Admitting Unavailable AICHHOLZ, LENS BLOCKER ESSIE Primary Care Unavailable MISC, DR MCCARTHY Referring Unavailable GARCIA ., DR BAILEY Consulting Unavailable MORALES ., DR MARKO Stafford Consulting Unavailable Aichholz SOLE CUTTER-LENS BLOCKER, Essie J Primary Care Provider Juliana Block Unavailable PJ GANNON Attending Unavailable PJ GANNON Referring Unavailable AICHHOLZ, ESSIE J Primary Care [...] Care Unavailable SALAM, Beth Admitting Unavailable SALAM, Beth [...] Attending Unavailable AICHHOLZ, ESSIE Attending Unavailable FRANCESMARY Attending Unavailable AICHHOLZ, ESSIE Referring Unavailable TIMMIS, NEDA Rodriguez Attending Unavailable AICHHOLZ, ESSIE Referring Unavailable AICHHOLZ, ESSIE Attending Unavailable FAWWADSHAIKH Attending Unavailable RIAN, JANET Attending Unavailable FAWWAD, Attending Unavailable TATTERSASHLEY, JAMIE Attending Unavailable DELGADO, ANGEL Referring Unavailable TATTERSALL, JAMIE Attending Unavailable DELGADO, ANGEL Referring Unavailable KOLE FULTON Attending Unavailable DELGADO, ANGEL Referring Unavailable BLACKSJOSIAS RAMAN T Attending Unavailable EWA, KYLE L Referring Unavailable KELBLEY, TINO Attending Unavailable EWA, KYLE L Referring Unavailable KELBLEY, TINO Attending Unavailable EWA, KYLE L Referring Unavailable KELBLEY, TINO Attending Unavailable EWA, KYLE L Referring Unavailable BLACKSTON, JOSIAS T Attending Unavailable EWA, KYLE L Referring Unavailable AICHHOLZ, ESSIE Attending Unavailable AICHHOLZ, ESSIE Attending Unavailable SRAVANI, TINO Attending Unavailable SRAVANI, TINO Attending Unavailable HOLDENALEXANDREA Attending Unavailable SRAVANI, TINO Referring Unavailable Aichholz Essie BAH Primary Care Provider Adán Torres DO Unavailable [place] MD ARDON Robert Miller Unavailable DelgadoAngel sinclair DO Unavailable LOIS MCKEON Attending Unavailable ESSIE RYAN Primary Care Unavailable MAYITO GIFFORD Referring Unavailable ESSIE RYAN Primary Care Unavailable Allergies Allergy Classification Reported Allergen(s) Allergy Type Date of Onset Reaction(s) Facility (5 sources) Penicillins; Translations: [PENICILLINS] Drug allergy (disorder) 09-21-2011 [facility] Rep[facility] (3 sources) Penicillin V Drug Allergy Fever [facility] Other (9 sources) Penicillins Drug Allergy 07-27-2016 [facility]) History of - penicillin allergy (context-depende nt category); Translations: [H/O: penicillin allergy] Drug allergy [facility] (1 source) Penicillin Drug Allergy [facility] Other Medications Current Medications Medication Drug Class(es) Dates Sig (Normalized) Sig (Original) acetaminophen 325 mg oral tablet (10 sources) Start: 09-22-2016 take 2 tablets by mouth every six hours as needed acetaminophen (TYLENOL) 325 mg tablet Take 2 tablets by mouth every 6 hours as needed. 40 tablet 09/22/2016 Active take 1 tablet by mouth every fou r hours Tylenol 325 MG 1 tablet as needed Orally every 4 hrs Active Comment on above: Take 2 tablets by mo uth every 6 hours as needed. ambrisentan 10 mg oral tablet (3 sources) Endothelin Receptor Antagonist take 10 mg by mouth once daily ambrisentan (LETAIRIS ORAL) Take 10 mg by mouth daily. 0 Active atorvastatin 10 mg oral tablet (11 sources) HMG-CoA Reductase Inhibitor Start: atorvastatin 10 mg Tab Refills(s) 0 Start Date: 05/29/23 Status: Ordered Start: 10-13-2020 take 1 tablet by billie th once daily atorvastatin (LIPITOR) 20 mg tablet Take 20 mg by mouth once daily. 10/13/2020 Active Comment on above: Take 20 [...] 0 Active carBAMazepine 200 mg oral tablet (9 sources) Mood Stabilizer carBAMazepine (TEGRETOL) 200 mg tablet Take 300 mg by mouth daily at bedtime. Active Comment on above: Take 300 mg by mouth daily at bedtime. cetirizine hydrochloride 10 mg oral tablet (9 sources) Histamine-1 Receptor Antagonist take 1 tablet by mouth once daily cetirizine (ZYRTEC) 10 mg tablet Take 10 mg by mouth once daily. Active take 1 tablet by mouth in the mo rning cetirizine (ZyrTEC) 5 mg tablet Take 1 tablet (5 mg total) by mouth in the morning. 0 Active Comment on above: Take 10 mg by mouth once daily. citalopram 20 mg oral tablet (9 sources) Serotonin Reuptake Inhibitor take 1 tablet by mouth once daily citalopram (CELEXA) 20 mg tablet Take 20 mg by mouth once daily. Active take 1 tablet by mouth once tracee y citalopram (CeleXA) 40 mg tablet Take 40 mg by mouth daily. 0 Active Comment on above: Take [...] 0 Start Date: 02/25/22 Status: Ordered Prilosec (20 sources) Proton Pump Inhibitor Start: 12-23-2010 Prilosec Oral, Daily, Refills(s) 0 Start Date: 12/23/10 Status: Ordered take 1 capsule by mouth once jordan ly Omeprazole 40 mg capsule Take 40 mg by mouth once daily. Active PriLOSEC 10 MG a s directed Orally Active Comment on above: Take 40 mg by mouth once daily. polyethylene glycol 3350 082343 mg / potassium chloride 1480 mg / sodium bicarbonate 5720 mg / sodium chloride 61832 mg powder for oral solution (3 sources) Osmotic Laxative Start: 11-28-2022 NuLYTELY [place] oral powder for reconstitution See Instructions, 1 EA, Refill(s) 0, See physician instructions prior to procedure., [facility] #[id number], 155, cm, 11/24/22 13:47:00 EDT, Height/Length Dosing, 88.2, kg, 11/24/22 13:47:00 EDT, Weight Dosing Start Date: 11/28/22 Status: Ordered Completed/Discontinued Medications Medication Drug Class(es) Dates Sig (Normalized) Sig (Original) 5 ml bupivacaine hydrochloride 5 mg/ml injection [...] procedure, # 2 tab(s), Refills(s) 0, Pharmacy: [id number], 155, cm, 03/03/22 15:04:00 EDT, Height/Length Dosing, 90, kg, 02/25/22 10:22:00 EDT, Weig... Start Date: 03/03/22 Status: Ordered colchicine 0.6 [...] Problem Classification Problem Date Documented Date Episodic/Chronic Anxiety disorders (8 sources) Anxiety disorder 12-23-2010 Chronic Calculus of urinary tract (13 sources) Kidney stone; Translations: [Calculus of kidney] Onset: 04-22-2022 Episodic Cardiac dysrhythmias (4 sources) Palpitations; Translations: [PALPITATIONS] Onset: 11-22-2022 Episodic Disorders of lipid metabolism (20 sources) Hyperlipidemia; Translations: [Other hyperlipidemia] Onset: 12-14-2020 12-14-2020 Chronic Esophageal disorders (16 sources) Gastroesophageal reflux disease; Translations: [Gastro-esophageal reflux disease without esophagitis] Onset: 09-23-2022 12-16-2020 Chronic Genitourinary symptoms and ill-defined conditions (20 sources) Lora hematuria; Translations: [Blood in urine] Onset: 04-26-2022 02-25-2022 Episodic Mood disorders (20 sources) Bipolar disorder; Translations: [Bipolar disorder, unspecified] Onset: 08-19-2017 12-16-2020 Chronic Nonspecific chest pain (2 sources) Precordial pain; Translations: [Precordial pain] Onset: 11-08-2022 Episodic Osteoarthritis (2 sources) Unilateral primary osteoarthritis, right hip; Translations: [Osteoarthritis of right hip joint] Onset: 06-14-2022 03-19-2024 Chronic Other connective tissue disease (3 sources) [...] Onset: 08-21-2023 Chronic Other non-traumatic joint disorders (8 sources) Pain in right hip; Translations: [PAIN IN RIGHT HIP] Onset: 11-17-2021 Resolved: 11-17-2021 Episodic Other non-traumatic joint disorders (6 sources) Hip pain; Translations: [Pain in right hip] Onset: 06-28-2023 09-12-2023 Episodic Other nutritional; endocrine; and metabolic disorders (6 sources) Obesity; Translations: [Obesity, unspecified] 09-07-2016 Chronic Other skin disorders (4 sources) Localized swelling, mass and lump, neck; Translations: [LOCALIZED SWELLING MASS AND LUMP NECK] Onset: 10-04-2022 Episodic Pulmonary heart disease (17 sources) Pulmonary hypertension; Translations: [Pulmonary hypertension, unspecified] Onset: 11-08-2022 09-07-2016 Chronic Regional enteritis and ulcerative colitis (20 sources) Crohn's disease; Translations: [Crohn's disease, unspecified, without complications] Onset: 07-27-2016 07-27-2016 Chronic Residual codes; unclassified (6 sources) Obstructive sleep apnea syndrome; Translations: [Obstructive [...] Spondylosis; intervertebral disc disorders; other back problems (2 sources) Lumbago-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; Translations: [Other intervertebral disc displacement, lumbosacral region] Chronic Thyroid disorders (4 sources) Nontoxic multinodular [...] right hip pain [M25.551, G89.29] Onset: 09-01-2023 Unclassified (2 sources) New Patient; Translations: [New Patient] Onset: 03-06-2024 Past or Other Problems Problem Classification Problem Date Documented Date Episodic/Chronic Abdominal pain (20 sources) Flank pain; Translations: [Abdominal pain] Onset: 12-14-2020 Resolved: 12-16-2020 02-25-2022 Episodic Intestinal obstruction without hernia (6 sources) Enterolith of small intestine; Translations: [Other impaction of intestine] Onset: 12-14-2020 12-16-2020 Episodic Other connective tissue disease (6 sources) Trochanteric bursitis, right hip; Translations: [TROCHANTERIC BURSITIS RIGHT HIP] Onset: 12-09-2021 Resolved: 12-09-2021 Episodic Other non-traumatic joint disorders (1 source) Osteophyte, right hip; Translations: [OSTEOPHYTE RIGHT HIP] Onset: 07-15-2022 Episodic Other and delivery including normal (6 sources) Vaginal delivery; Translations: [Encounter for full-term [...] Test Name Value Interpretation Reference Range Facility [facility] 03-19-2024 CNOV Office Visit (OTMBHT) STACEY SAHU ([id number]) 1975 F Date Time Provider Department 03/19/24 9:30 AM LOIS MCKEON OTEDI During your visit today, we recorded the following information about you: Clarissa Zacarias RN 03/19/2024 10:[address] Mckeon has ordered a cream that will be delivered to your home. The company, [employer], will call or text you from [phone] phone number. Please reply or answer the call to start the process. If you do not hear from them within 48 hours, please call . Lois Mckeon MD 03/19/2024 10:34 AM Signed She is here for chronic right hip and groin pain. Has been injected multiple times and done therapy. Takes medication. Has progressed to the point where she has pain that is affecting her quality of life. 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 Pain is in her groin and lateral hip. Pain at rest and with physical activities.Review of systems negative for fever, weight loss, malaise, fatigue, significant headache, vision changes, hearing loss, neck swelling, cough, chest pain, shortness of breath, dyspnea on exertion, abdominal pain, nausea, vomiting, diarrhea, urinary dysfunction, upper/lower extremity numbness/tingling/we akness/edema, heat/cold intolerance Exam mildly antalgic gait. Right hip flexion is 80 with pain and rotation 20 with pain. Abducts 20 as well. Negative straight leg raise. Neurologically intact. Pelvic and right hip x-rays show moderate degenerative changes at a very large lateral acetabular spur. Assessment chronic right hip and groin pain. Plan MRI to evaluate the articular cartilage and discussed additional treatment options. Ordered topical anti-inflammatory gel. Will see back after the scan is complete. Lois Mckeon MD Allergies As of Date: 03/19/2024 Noted Allergy Reaction PENICILLINS 07/27/2016 16 - Unknown Date Reviewed: 01/17/2022 Reviewed by: Nadja Fulton MA - Fully Assessed Reason for Visit: New [[id number]] Cmt: Surgical consult Primary Visit Diagnosis:Pain of right hip [M25.551] Other Visit Diagnosis:Primary osteoarthritis of right hip [M16.11] Order(s):MRI HIP WO IVCON RIGHT [[id number]] Order #: [id number] FUTURE Prescriptions as of 03/19/2024 - atorvastatin (LIPITOR) 20 mg tablet Take 20 mg by mouth once daily. - carBAMazepine (TEGRETOL) 200 mg tablet Take 300 mg by mouth daily at bedtime. - acetaminophen (TYLENOL) 325 mg tablet Take 2 tablets by mouth every 6 hours as needed. - Omeprazole 40 mg capsule Take 40 mg by mouth once daily. - cetirizine (ZYRTEC) 10 mg tablet Take 10 mg by mouth once daily. - citalopram (CELEXA) 20 mg tablet Take 20 mg by mouth once daily. Problem List As Of Date 03/19/2024 Noted Resolved (spontaneous vaginal delivery) x 4 [O80] 07/27/2016 Crohn's disease without complication (HCC) bc*07/27/2016 Pulmonary HTN (HCC) [I27.20] Obese [E66.9] NIRMALA (obstructive sleep apnea) [G47.33] GERD (gastroesophageal reflux disease) [K21.9] Crohn's disease of intestine (HCC) [K50.90] Enterolith of small intestine (HCC) [K56.49] 12/14/2020 Bipolar disease, chronic (HCC) [F31.9] 12/14/2020 Generalized abdominal pain [R10.84] 12/14/2020 12/16/2020 Other hyperlipidemia [E78.49] 12/14/2020 Other instructions from your clinician: Dr. Mckeon has ordered a cream that will be delivered to your home. The company, [employer], will call or text you from a [phone] phone number. Please reply or answer the call to start the process. If you do not hear from them within 48 hours, please call . Letter Text Encounter Status:Closed by LOIS MCKEON on 03/19/24 Normal [facility] XR HIP 3V PELV+ AP/LAT RTon 03-19-2024 XR HIP 3V PELV+ AP/LAT RT * * *Final Report* * * DATE OF EXAM: Mar 19 2024 9:04AM M2X 5352 - XR HIP 3V PELV+ AP/LAT RT / PROCEDURE REASON: Pain in right hip * * * * Physician Interpretation * * * * EXAMINATION / TECHNIQUE: XR HIP 3V PELV+ AP/LAT RT PATIENT/TECHNOLOGIST PROVIDED HISTORY: chronic right hip pain with motion CLINICAL INFORMATION ( PROVIDED BY ORDERING CLINICIAN) : Pain in right hip COMPARISON: MR right femur 12/03/2021, right femur radiographs 11/17/2021 RESULT: No acute fracture or osseous alignment. Bilateral superior acetabular osteophytes, slightly more pronounced on the right and similar to prior. Hip joint spaces are maintained bilaterally. Sacroiliac joint spaces and pubic symphysis are also preserved. Facet arthropathy at L5-S1, more pronounced on the left. Redemonstrated postoperative changes in the right lower quadrant. IMPRESSION: Mild right hip osteoarthritis, similar to 11/17/2021. Glove Cleaner: [employer] Transcribe Date/Time: Mar 19 2024 9:10A Dictated by : MELISSA MODI MD This examination was interpreted and the report reviewed and electronically signed by: MELISSA MODI MD on Mar 19 2024 9:11AM EST [id number] Normal [facility] XR Pelvis and Hip - right AP and Lateral frogon 03-19-2024 IMPRESSION: Mild right hip osteoarthritis, similar to 11/17/2021. Glove Cleaner: [employer] Transcribe Date/Time: Mar 19 2024 9:10A Dictated by : MELISSA MODI MD This examination was interpreted and the report reviewed and electronically signed by: MELISSA MODI MD on Mar 19 2024 9:11AM EST DIVISION OF RADIOLOGY * * *Final Report* * * DATE OF EXAM: Mar 19 2024 9:04AM M2X 5352 - XR HIP 3V PELV+ AP/LAT RT / PROCEDURE REASON: Pain in right hip * * * * Physician Interpretation * * * * EXAMINATION / TECHNIQUE: XR HIP 3V PELV+ AP/LAT RT PATIENT/TECHNOLOGIST PROVIDED HISTORY: chronic right hip pain with motion CLINICAL INFORMATION ( PROVIDED BY ORDERING CLINICIAN) : Pain in right hip COMPARISON: MR right femur 12/03/2021, right femur radiographs 11/17/2021 RESULT: No acute fracture or osseous alignment. Bilateral superior acetabular osteophytes, slightly more pronounced on the right and similar to prior. Hip joint spaces are maintained bilaterally. Sacroiliac joint spaces and pubic symphysis are also preserved. Facet arthropathy at L5-S1, more pronounced on the left. Redemonstrated postoperative changes in the right lower quadrant. DIVISION OF RADIOLOGY Provider, [facility] [place] - 03/19/2024 * * *Final Report* * * DATE OF EXAM: Mar 19 2024 9:04AM M2X 5352 - XR HIP 3V PELV+ AP/LAT RT / PROCEDURE REASON: Pain in right hip * * * * Physician Interpretation * * * * EXAMINATION / TECHNIQUE: XR HIP 3V PELV+ AP/LAT RT PATIENT/TECHNOLOGIST PROVIDED HISTORY: chronic right hip pain with motion CLINICAL INFORMATION ( PROVIDED BY ORDERING CLINICIAN) : Pain in right hip COMPARISON: MR right femur 12/03/2021, right femur radiographs 11/17/2021 RESULT: No acute fracture or osseous alignment. Bilateral superior acetabular osteophytes, slightly more pronounced on the right and similar to prior. Hip joint spaces are maintained bilaterally. Sacroiliac joint spaces and pubic symphysis are also preserved. Facet arthropathy at L5-S1, more pronounced on the left. Redemonstrated postoperative changes in the right lower quadrant. IMPRESSION IMPRESSION: Mild right hip osteoarthritis, similar to 11/17/2021. Glove Cleaner: [employer] Transcribe Date/Time: Mar 19 2024 9:10A Dictated by : MELISSA MODI MD This examination was interpreted and the report reviewed and electronically signed by: MELISSA MODI MD on Mar 19 2024 9:11AM EST [facility] Radiology Study observation (narrative) [facility] XR Pelvis and Hip - right AP and Lateral frogOrdered By: [facility] Provider on 03-19-2024 [facility] 03-18-2024 NIURKAN Telephone (OTMBHT) STACEY SAHU ([id number]) 1975 F Date Time Provider Department 03/18/24 LOIS MCKEON OTMARISA During your visit today, we recorded the following information about you: Lupe Betancourt 03/18/2024 4:00 PM Signed Name of Caller: stacey Relationship to patient: patient Last visit in this department: Visit date not found Reason for Call: Other : has questions about what to expect at her appt on 03/19 Callback number: [phone] Clarissa Zacarias RN 03/18/2024 4:57 PM Signed Left message with pt to be sure to have report as well as images, but we may need an xray if do not have, he will look at xray and do assessment and determine if surgery will be an option. Clarissa Zacarias RN Allergies As of Date: 03/18/2024 Noted Allergy Reaction PENICILLINS 07/27/2016 16 - Unknown Date Reviewed: 01/17/2022 Reviewed by: Nadja Fulton MA - Fully Assessed Prescriptions as of 03/22/2024 - atorvastatin (LIPITOR) 20 mg tablet Take 20 mg by mouth once daily. - carBAMazepine (TEGRETOL) 200 mg tablet Take 300 mg by mouth daily at bedtime. - acetaminophen (TYLENOL) 325 mg tablet Take 2 tablets by mouth every 6 hours as needed. - Omeprazole 40 mg capsule Take 40 mg by mouth once daily. - cetirizine (ZYRTEC) 10 mg tablet Take 10 mg by mouth once daily. - citalopram (CELEXA) 20 mg tablet Take 20 mg by mouth once daily. Problem List As Of Date 03/18/2024 Noted Resolved (spontaneous vaginal delivery) x 4 [O80] 07/27/2016 Crohn's disease without complication (HCC) bc*07/27/2016 Pulmonary HTN (HCC) [I27.20] Obese [E66.9] NIRMALA (obstructive sleep apnea) [G47.33] GERD (gastroesophageal reflux disease) [K21.9] Crohn's disease of intestine (HCC) [K50.90] Enterolith of small intestine (HCC) [K56.49] 12/14/2020 Bipolar disease, chronic (HCC) [F31.9] 12/14/2020 Generalized abdominal pain [R10.84] 12/14/2020 12/16/2020 Other hyperlipidemia [E78.49] 12/14/2020 Encounter Status:Closed by LUPE BETANCOURT on 03/22/[address] 03-06-2024 29 Addended by: KAMINI LOVE on: 03/08/2024 11:39 AM Modules accepted: [facility] Office Visiton 03-06-2024 Follow-up visit [id number] Stacey Sahu Lisa 1975 Provider Department Center 03/06/2024 TuanKOMALALEXANDREA [facility] SLEEP [facility] Family History Problem Relation Age of Onset Coronary artery disease Father Family Status - Relation Status Age at Father Level of Service:11214 NM OFFICE/OUTPATIENT NEW MODERATE MDM 45 MINUTES Reason for Visit and Comments: New Patient [632] - Pt was referred for an [facility] sleep apnea evaluation. Pt follows with pulmonary, Dr. Rosa in [place]. [facility] Follow-[facility] visit [id number] Stacey Sahu Lisa 1975 Provider Department Center 03/06/2024 TINO PRATER [facility] Family History Problem Relation Age of Onset Coronary artery disease Father Family Status - Relation Status Age at Father Level of Service:66171 NM OFFICE/OUTPATIENT ESTABLISHED LOW MDM 20 MIN [facility] Patient Educationon 11-28-19 Patient Education Nephrology Dietary [...] Spinach (cooked), rhubarb, beets, sweet potatoes, and Surinamese chard. ? Peanuts. ? Potato chips, marshallese fries, and baked potatoes with skin on. ? Nuts and nut products. ? Chocolate. ? If you regularly take a diuretic medicine, make sure to eat at least 1 or 2 servings of fruits or vegetables that are high in potassium each day. These include: ? Avocado. ? Banana. ? Anderson, prune, carrot, or tomato juice. ? Baked [...] fish oil, or vitamin B6. ? Take bkny-dfz-gcsvjhi and prescription medicines only as told by your health care provider. These include supplements. What foods sh (more content not included)... Normal [facility] Screenson 11-28-2023 Screens [id number]# 1.00TIFF Normal [facility] Urology Office/Clinic Noteon 11-28-2023 Urology Office/Clinic [...] tapering at [facility]. KUB 01/05/23 FT - 4 mm renal stone in RLP. [...] Contact Information ANGELICA SHAIKH, LESLIE [place], URL [address] [place] [address] Additional Instructions: 1 yr MAGALYS, BEN Patient Education Dietary Guidelines to Help Prevent Kidney Stones Documentation recorded by the scribadam Denis accurately reflects the services(s) I performed [...] Protein Urine Dipstick: Negative (11/28/23 09:04:00) Specific [place] Urine Dipstick: 1.020 (11/28/23 09:04:00) Urine Appearance Urine Dipstick: Clear (11/28/23 09:04:00) Urine Color Urine Dipstick: Yellow (11/28/23 09:04:00) Urobilinogen Urine Dipstick: Normal 0.2-1 EU/dl (11/28/23 09:04:00) pH Urine Dipstick: 7 (11/28/23 09:04:00) [1] URO- 6 month f/u; JOSE FELIX, Jose Palafox 05/29/2023 15:18 EST Normal [facility] Comment on above: Result Comment: Elec tronically Signed By: LESLIE JUNG PA-C\.br\Date and Time Signed: 11/28/23 10:11 EDT\.br\Electronically Co-Signed By: Zenobia Denis\.br\Date and Time Co-Signed: 11/28/23 09:37 EDT 37on 08-29-2023 37 Increase lipitor/atorvastatin to 40 mg daily Have labs drawn in about 2-3 months to check liver function and cholesterol levels Normal [facility] Office Visiton 08-29-2023 Follow-up visit [id number] Stacey Sahu 1975 F Date Provider Department Center 08/29/2023 TINO PRATER [facility] Family History Problem Relation Age of Onset Coronary artery disease Father Family Status - Relation Status Age at Father Level of Service:46608 NM OFFICE/OUTPATIENT ESTABLISHED MOD MDM 30 MIN Normal [facility] Lab Reportson 08-01-2023 Lab Reports [id number] #1.00TIFF Normal [facility] Lab Reportson 07-31-2023 Lab Reports [id number] #1.00TIFF Normal [facility] Lab Reportson 07-28-2023 Lab Reports [id number] #1.00TIFF Normal [facility] Lab Reports [id number] #1.00TIFF Normal [facility] Lab Reportson 07-26-2023 Lab Reports [id number] #1.00TIFF Normal [facility] COVID/FLU/RSV RT-PCRon 07-11 SARS-CoV-2 (COVID-19) RNA IZAIAH+probe Ql (Unsp spec) Positive [facility] Other COVID/FLU/RSV RT-PCR Negative [facility] Other Ambulatory Visit Summaryon 1 07-30-2022 Ambulatory Visit Summary STACEY SAHU :1975 Visit Date:05/29/2023 Ambulatory Visit Instructions Your Diagnosis Kidney stones Gross hematuria Tests Performed Urnls Dip Stick Auto w/o Microscopy POC 30250 Your Care Team Attending Physician - Jose [...] Follow Up with JOSE FELIX, Jose Palafox, URL When: Comments: 4 mos w/ metabolic w/u Where: [facility] [address], [place] [address] [phone] Medications What How Much When Instructions Unchanged [...] Urnls Dip Stick Auto w/o Microscopy POC 81440 (05/29/2023) Bilirubin Urine Dipstick - Negative Blood Urine Dipstick - 3+ Large Glucose Urine Dipstick - Negative Ketones Urine Dipstick - Negative Leukocytes Urine Dipstick - Negative Nitrite Urine Dipstick - Negative Protein Urine Dipstick - Negative Specific [place] Urine Dipstick - >=1.030 Urine Appearance Urine [...] ? Santy (more content not included)... Normal [facility] Patient Educationon 05-29-20 23 Patient [...] these instructions at home: Medicines ? Take dgyn-alg-annangi and prescription medicines only as told by [...] provider. Document Revised: 02/14/2022 Document Reviewed: 02/14/2022 [employer] Patient Education ? 2022 [employer] Normal [facility] Urology Office/Clinic Noteon 05-29-2023 Urology [...] 4mm renal stone in RLP. KUB 05/24/23 [facility] - no stones id'd. Discussed [...] [facility] [address], [place] [address] [phone] Additional Instructions: 4 mos w/ metabolic w/u Patient Education Kidney Stones, Jyny-ha-Rips I, Imani Renae, personally scribed for Dr. [...] Dipstick: Negative (more content not included)... Normal [facility] Comment on above: Result Comment: [...] with voice recognition artificial intelligence software, specifically Root Orange, Haptik and or Zady. Substitutions may have occurred due to the inherent limitations of voice recognition and artificial intelligence software. ATTESTATION: Documentation services were performed after patient or guardian consented to allow [employer] to record this visit. DELVIN forensic specialist and provider reviewed before signing. DELVIN: [...] H/O: penic (more content not included)... Normal [facility] Comment on above: Result Comment: Elec tronically Signed By: Ana Rosa Iglesias\.br\Date and Time Signed: 02/02/23 15:48 EDT\.br\Electronically Co-Signed By: Ignacia KHAN MD\.br\Date and Time Co-Signed: 02/06/23 14:00 EDT Calprotectin, Fecalon 2022 Calprotectin (Stl) [Mass/Mass] 87 mcg/gm Invalid Interpretation Code 0-120 [facility] Comment on above: Result Comment: Conc entration Interpretation Follow-Up < 5 - 50 ug/g Normal None >50 -120 ug/g Borderline Re-evaluate in 4-6 weeks >120 ug/g Abnormal Repeat as clinically indicated Performed at: [facility] [id number] MD Kody Hayes Performed By: #### 1 [id number] ####[facility] [address] [place] [address] Ambulatory Visit Summaryon 0 02-02-2023 Ambulatory Visit [...] FELIX, Jose Palafox Where: [facility] Jatinder Normal [facility] Auto Diffon 02-01-2023 Basophils/100 WBC (Bld) 2.7 % High 0.0-2.0 [facility] Comment on above: Order Comment: Order Added by Discern Expert. Performed By: #### 2 551118, 0895731, 1014152, 83348756, 8426109 ####[facility] [address] [place] [address] Basophils/Leukocytes Auto (Bld) [Pure # fraction] 0.2 E9/L Normal 0.0-0.2 [facility] Comment on above: Order Comment: Order Added by Discern Expert. Performed By: #### 2 172795, 2402394, 2015958, 78437526, 4740963 ####[address] [place] [address] Eosinophils/100 WBC (Bld) 8.5 % High 0.0-8.0 [facility] Comment on above: Order Comment: Order Added by Discern Expert. Performed By: #### 2 016221, 2409475, 2568754, 65743111, 1278645 ####[address] [place] [address] Eosinophils/Leukocyte s Auto (Bld) [Pure # fraction] 0.7 E9/L High 0.0-0.5 [facility] Comment on above: Order Comment: Order Added by Roma Expert. Performed By: #### 2 074957, 8284076, 4362939, 58326773, 8556374 ####[address] [address] Lymphocytes/100 WBC (Bld) 34.8 % Normal 14.0-50.0 [facility] Comment on above: Order Comment: Order Added by Roma Expert. Performed By: #### 2 769287, 4470813, 8946360, 79325033, 9502067 ####[address] [address] Lymphocytes/Leukocyte s Auto (Bld) [Pure # fraction] 2.8 E9/L Normal 1.0-4.0 [facility] Comment on above: Order Comment: Order Added by Discern Expert. Performed By: #### 2 815390, 0354903, 7794448, 36015340, 4625977 ####[address] [address] Monocytes/100 WBC (Bld) 9.4 % Normal 4.0-14.0 [facility] Comment on above: Order Comment: Order Added by Roma Expert. Performed By: #### 2 049778, 8888937, 2714346, 85193515, 1218746 ####[address] [place] [address] Monocytes/Leukocytes Auto (Bld) [Pure # fraction] 0.8 E9/L Normal 0.2-1.0 [facility] Comment on above: Order Comment: Order Added by Discern Expert. Performed By: #### 2 881751, 0205710, 9086726, 39037802, 3310962 ####[address] [address] Neutrophils/100 WBC (Bld) 44.6 % Normal 36.0-75.0 [facility] Comment on above: Order Comment: Order Added by Discern Expert. Performed By: #### 2 195158, 6157417, 7370620, 19271809, 8733522 ####[address] [address] Neutrophils/Leukocyte s Auto (Bld) [Pure # fraction] 3.5 E9/L Normal 2.0-7.5 [facility] Comment on above: Order Comment: Order Added by Discern Expert. Performed By: #### 2 317341, 5956442, 4277935, 11362788, 6290700 ####[address] [address] CBC w/ Auto Diffon 3 Erythrocyte distribution width (RBC) [Ratio] 13.6 % Normal 10.9-14.2 [facility] Comment on above: Performed By: #### 2 488996, 9933584, 5041549, 57042355, 0702051 ####[address] [address] Hematocrit (Bld) [Volume fraction] 39.5 % Normal 34.0-46.0 [facility] Comment on above: Performed By: #### 2 479342, 9037583, 1456634, 46709002, 0754135 ####[address] [place] [address] Hemoglobin (Bld) [Mass/Vol] 13.3 g/dL Normal 12.0-16.0 [facility] Comment on above: Performed By: #### 2 083688, 6234530, 9496178, 57022309, 4516464 ####[facility] [address] [place] [address] MCH (RBC) [Entitic mass] 29.1 pg Normal 27.0-34.0 [facility] Comment on above: Performed By: #### 2 236788, 4222426, 5295513, 82993934, 8996217 ####[address] [address] MCHC (RBC) [Mass/Vol] 33.7 g/dL Normal 31.4-36.0 [facility] Comment on above: Performed By: #### 2 479482, 9645759, 9471267, 84226598, 7614566 ####[address] [address] MCV (RBC) [Entitic vol] 86.4 fL Normal 80.0-100.0 [facility] Comment on above: Performed By: #### 2 061502, 7300906, 8814585, 14767418, 0526229 ####[address] [address] Platelet mean volume (Bld) [Entitic vol] 8.9 fL Normal 6.4-10.8 [facility] Comment on above: Performed By: #### 2 430575, 1128688, 0471425, 97326662, 5653586 ####[facility] [address] [place] [address] Platelets (Bld) [#/Vol] 274.0 E9/L Normal 150.0-500.0 [facility] Comment on above: Performed By: #### 2 515760, 7552521, 2254799, 96495091, 1874504 ####[address] [place] [address] RBC (Bld) [#/Vol] 4.6 E12/L Normal 4.3-5.9 [facility] Comment on above: Performed By: #### 2 999369, 5574982, 1247471, 23821117, 9313481 ####[facility] [address] [place] [address] WBC corrected for nucl RBC Auto (Bld) [#/Vol] 8.0 E9/L Normal 4.0-11.0 [facility] Comment on above: Performed By: #### 2 312115, 7197585, 9782706, 81175265, 3055720 ####[facility] [address] [place] [address] CHEMISTRYOrdered By: SYSTEM SYSTEM on 02-01-2023 Albumin [...] 80 mL/min/1.73 m2 Normal >=59mL/min/1 .73 m2 [facility] Chem S Globulin (S) [Mass/Vol] 3.2 g/dL Normal 1.4 - 4.0 gm/dL [facility] Remisol Glucose [Mass/Vol] 99 mg/dL Normal 55 - 199 mg/dL [facility] Remisol Potassium [Moles/Vol] 3.9 mmol/L Normal 3.5 - 5.3 mmol/L [facility] Remisol Protein [Mass/Vol] 7.2 g/dL Normal 6.0 - 7.8 gm/dL [facility] Remisol Sodium [Moles/Vol] 139 mmol/L Normal 135 - 145 mmol/L [facility] Remisol Urea nitrogen [Mass/Vol] 15 mg/dL Normal 5 - 21 mg/dL [facility] Remisol Urea nitrogen/Creatinine [Mass ratio] 17 mg/mg Normal 10 - 20 [facility] Remisol CMPon 02-01-2023 Albumin [Mass/Vol] 4.0 g/dL Normal 3.3-5.0 [facility] Comment on above: Performed By: #### 2 437632, 8669505, 4435335, 72770587, 7972643 ####[facility] [address] [place] [address] Albumin/Globulin (S) [Mass conc ratio] 1.2 Normal 1.1-2.2 [facility] Comment on above: Performed By: #### 2 759985, 0890671, 6050910, 95892935, 9306930 ####[facility] [address] [place] [address] ALP [Catalytic activity/Vol] 53 Int._Unit/L Normal 21-98 [facility] Comment on above: Performed By: #### 2 228579, 4269094, 7800750, 99368916, 8711388 ####[facility] [address] [place] [address] ALT No additional P-5'-P [Catalytic activity/Vol] 18 Int._Unit/L Normal 6-46 [facility] Comment on above: Performed By: #### 2 777227, 7823493, 5981992, 68836550, 0355201 ####[facility] [address] [place] [address] Anion gap [Moles/Vol] 13 mmol/L Normal 6-16 [facility] Comment on above: Performed By: #### 2 624605, 8968751, 5401341, 46456456, 8349379 ####[facility] [address] [place] [address] AST [Catalytic activity/Vol] 18 Int._Unit/L Normal 5-43 [facility] Comment on above: Performed By: #### 2 268488, 6703810, 7868620, 30998191, 2874559 ####[facility] [address] [place] [address] Bilirubin [Mass/Vol] 0.4 mg/dL Normal 0.0-1.1 [facility] Comment on above: Performed By: #### 2 700989, 7773241, 0609327, 18062464, 9868575 ####[facility] [address] [place] [address] Calcium [Mass/Vol] 9.1 mg/dL Normal 8.9-11.1 [facility] Comment on above: Performed By: #### 2 361282, 5332873, 1915891, 90247928, 2400552 ####[facility] [address] [place] [address] Chloride [Moles/Vol] 106 mmol/L Normal 101-111 [facility] Comment on above: Performed By: #### 2 474278, 4143343, 5336076, 27331167, 8801756 ####[facility] [address] [place] [address] CO2 [Moles/Vol] 24 mmol/L Normal 21-31 [facility] Comment on above: Performed By: #### 2 138551, 0791386, 2881783, 36550823, 1159377 ####[facility] [address] [place] [address] Creatinine [Mass/Vol] 0.9 mg/dL Normal 0.5-1.3 [facility] Comment on above: Performed By: #### 2 167056, 5957599, 3198933, 64728615, 8544027 ####[facility] [address] [place] [address] Globulin (S) [Mass/Vol] 3.2 g/dL Normal 1.4-4.0 [facility] Comment on above: Performed By: #### 2 850371, 0122259, 3241071, 90259420, 9319260 ####[facility] [address] [place] [address] Glucose [Mass/Vol] 99 mg/dL Normal 55-199 [facility] Comment on above: Result Comment: If t his glucose result represents a fasting glucose, interpretation should refer to the following reference range: 55-99 mg/dL Performed By: #### 2 805978, 2142155, 4882870, 65276288, 8090888 ####[facility] [address] [place] [address] Potassium [Moles/Vol] 3.9 mmol/L Normal 3.5-5.3 [facility] Comment on above: Performed By: #### 2 265988, 3179203, 3663863, 88536039, 1735755 ####[facility] [address] [place] [address] Protein [Mass/Vol] 7.2 g/dL Normal 6.0-7.8 [facility] Comment on above: Performed By: #### 2 345240, 7255025, 2920174, 76003516, 4279927 ####[facility] [address] [place] [address] Sodium [Moles/Vol] 139 mmol/L Normal 135-145 [facility] Comment on above: Performed By: #### 2 185262, 0251088, 3261220, 16304547, 7758463 ####[facility] [address] [place] [address] Urea nitrogen [Mass/Vol] 15 mg/dL Normal 5-21 [facility] Comment on above: Performed By: #### 2 551079, 0443642, 9240222, 91431784, 0903736 ####[facility] [address] [place] [address] Urea nitrogen/Creatinine [Mass ratio] 17 No Units Normal 10-20 [facility] Comment on above: Performed By: #### 2 345417, 1414641, 0173268, 42601344, 8196177 ####[facility] [address] [place] [address] CRPon 02-01-2023 CRP [Mass/Vol] 0.7 mg/dL Normal <=1.9 [facility] Comment on above: Performed By: #### 2 619508, 2850554, 1853337, 03248289, 9877235 ####[facility] [address] [place] [address] Consent for Treatmenton Consent for Treatment [id number] #1.00CD:127 Normal [facility] HEMATOLOGYOrdered By: SYSTEM SYSTEM on [...] [Vol rate/Area] 80 mL/min/1.73 m2 Normal >=59 [facility] Comment on above: Order Comment: Order added by Discern Expert. Result Comment: Manager Paid gail kidney disease could be indicated at eGFR's of less than 60 mL/min/1.73m2. Kidney failure is indicated at less than 15 mL/min/1.73m2. Performed By: #### 2 487420, 2360252, 4080327, 25779591, 9862719 ####[facility] [address] [place] [address] XR Abdomen 1 Viewon 01-07-20 23 XR [...] mGy = na DAP = na Normal [facility] Consent for Treatmenton 12-24 Consent for Treatment [id number] #1.00CD:127 Normal [facility] Outside Colonoscopyon 2022 Outside Colonoscopy [id number] #2.00CD:127 Normal [facility] CT Abdomen/Pelvis w/contrast (enterography)on 12-09-2022 [...] Oral contrast amount in ml's: 1450 Normal [facility] Consent for Treatmenton 11-24 Consent for Treatment [id number] #1.00CD:127 Normal [facility] ECHOCARDIO M/2D COMPLETEon 0 11-22-2022 ECHOCARDIO M/2D COMPLETE Patient: STACEY SAHU Exam Date: 11/22/2022 : 1975 Gender:F Ordering : [facility] Admission #: [id number] Family : Order #: [id number] CLICK HERE TO VIEW EXAM ECHOCARDIOGRAM REPORT [...] M.D. on 11/22/2022 at 17:[address] [facility] US THYROID FN ASP BXon 10-28 US THYROID FN ASP BX Begin Addendum #1 COLLECTED DATE/TIME: 10/18/2022 13:19 EDT Final Diagnosis Report for [facility] [place], [place] (A/B) SOFT TISSUE MASS CEPHALAD TO THYROID; FINE NEEDLE ASPIRATION: -ATYPIA OF UNDETERMINED SIGNIFICANCE. -CYST CONTENT. NOTE: Sparsely cellular aspirate compromised of follicular cells with architectural atypia. Molecular testing or a repeat aspirate may be helpful if clinically indicated. 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 10/25/[address] [...] 2. Pathology results are pending. Normal [facility] XR KUB 1 VIEWon 10-27-2022 XR [...] PAULETTE GALVAN Date: 2022-10-27 07:[address] [facility] CT NECK ST W CONon 3 CT [...] PREET RODRIGEZ Date: 2022-10-05 08:[address] [facility] CARDIAC DENZEL ADMITon 023 CK [Catalytic activity/Vol] 149 U/L Normal 26-[address] [facility] Comment on above: Performed By: #### C JANETH DENSONA, CMP ####[facility] [address] [place], [place] [address]KpMaribel Iverson CK.MB [Mass/Vol] 1.51 ng/mL Normal <=3.60 [facility] Comment on above: Performed By: #### C JERZYM, LIPA, CMP ####[facility] [address] [place], [place] [address]AyDr. Nita Iverson HSTROP 4.1 pg/mL Normal 4.0-51.[address] [facility] Comment on above: Result Comment: CUT- OFF POINTS HAVE BEEN ESTABLISHED BASED ON THE FOURTH UNIVERSAL DEFINITIONS OF MYOCARDIAL INFARCTION. THE UPPER REFERENCE LIMIT (URL) OF TROPONIN, DEFINED THE 99TH PERCENTILE OF cTnI DISTRIBUTION IN A REFERENCE POPULATION, HAS BEEN CONFIRMED THE DECISION THRESHOLD FOR HI DIAGNOSIS. Performed By: #### C SHIVANI DENSON, CMP ####[facility] [address] [address]Dr. Nita Iverson ARIES 47 ng/mL Normal 9-82 [facility] Comment on above: Performed By: #### C SHIVANI DENSON, CMP ####[facility] [address] [place] [address]Dr. Nita Iverson CBC AUTO DIFFon 09-21-2022 BASO # 0.1 103/ul Normal 0.0-0.1 [facility] Comment on above: Performed By: #### C BC #### [facility] [address] [address] [address] Nita Iverson Basophils/100 WBC (Bld) 0.8 % Normal 0.2-2.0 [facility] Comment on above: Performed By: #### C BC #### [facility] [address] [address] [address] Nita Iverson EO # 0.7 103/ul Normal 0.0-0.7 [facility] Comment on above: Performed By: #### C BC #### [facility] [address] [address] [address] Nita Iverson Eosinophils/100 WBC (Bld) 7.1 % Critically high 0.9-7.0 [facility] Comment on above: Performed By: #### C BC #### [facility] [address] [place] [address] Dr. Nita Iverson Erythrocyte distribution width (RBC) [Ratio] 12.3 % Normal 11.0-15.0 [facility] Comment on above: Performed By: #### C BC #### [facility] [address] [address] [address] Nita Iverson Hematocrit (Bld) [Volume fraction] 40.1 % Normal 36.0-48.0 [facility] Comment on above: Performed By: #### C BC #### [facility] [address] [place] [address] Dr. Nita Iverson Hemoglobin (Bld) [Mass/Vol] 13.6 g/dL Normal 12.0-16.0 [facility] Comment on above: Performed By: #### C BC #### [facility] [address] [place] [address] Dr. Niat Iverson IG # 0.02 10e3/ul Normal 0.00-0.03 [facility] Comment on above: Performed By: #### C BC #### [facility] [address] [place] [address] Dr. Nita Iverson IG % 0.2 % Normal 0.0-0.5 [facility] Comment on above: Performed By: #### C BC #### [facility] [address] [place] [address] Dr. Nita Iverson LYMPH # 3.0 103/ul Normal 1.2-3.8 [facility] Comment on above: Performed By: #### C BC #### [facility] [address] [place] [address] Dr. Nita Iverson Lymphocytes/100 WBC (Bld) 30.2 % Normal 20.5-60.0 [facility] Comment on above: Performed By: #### C BC #### [facility] [address] [place] [address] Dr. Nita Iverson MANUAL DIFF REQ NO Normal [facility] Comment on above: Performed By: #### C BC #### [facility] [address] [place] [address] Dr. Nita Iverson MCH (RBC) [Entitic mass] 30.0 pg Normal 26.7-34.0 [facility] Comment on above: Performed By: #### C BC #### [facility] [address] [place] [address] Dr. Nita Iverson MCHC (RBC) [Mass/Vol] 33.9 g/dL Normal 29.9-35.2 [facility] Comment on above: Performed By: #### C BC #### [facility] [address] [place] [address] Dr. Nita Iverson MCV (RBC) [Entitic vol] 88.3 fL Normal 81.0-99.0 [facility] Comment on above: Performed By: #### C BC #### [facility] [address] [place] [address] Dr. Nita Iverson MONO # 0.8 103/ul Normal 0.3-0.8 [facility] Comment on above: Performed By: #### C BC #### [facility] [address] [place] [address] Dr. Nita Iverson Monocytes/100 WBC (Bld) 7.8 % Normal 1.7-12.0 [facility] Comment on above: Performed By: #### C BC #### [facility] [address] [place] [address] Dr. Nita Iverson NEUT # 5.4 103/ul Normal 1.4-6.5 [facility] Comment on above: Performed By: #### C BC #### [facility] [address] [place] [address] Dr. Nita Iverson Neutrophils/100 WBC (Bld) 53.9 % Normal 43.0-75.0 [facility] Comment on above: Performed By: #### C BC #### [facility] [address] [place] [address] Dr. Nita Iverson Platelet mean volume (Bld) [Entitic vol] 10.4 fL Normal 9.5-13.5 [facility] Comment on above: Performed By: #### C BC #### [facility] [address] [place] [address] Dr. Nita Iverson PLT 270 103/ul Normal 150-[address] [facility] Comment on above: Performed By: #### C BC #### [facility] [address] [place] [address] Dr. Nita Iverson RBC 4.54 106/ul Normal 4.20-5.[address] [facility] Comment on above: Performed By: #### C BC #### [facility] [address] [place], [place] [address] Dr. Nita Iverson WBC 10.0 103/ul Normal 4.0-11.0 [facility] Comment on above: Performed By: #### C BC #### [facility] [address] [place], [place] [address] ABD/PELV W CONon [...] MISTY SPEARS Date: 2022-09-21 21:[address] [facility] ER URINE PROFILEon 3 Bilirubin Ql (U) Negative Normal NEGATIVE [facility] Comment on above: Performed By: #### U MICRO, ERUR, PREGU ####[facility] [address] [place] [address]Dr. Nita Iverson Clarity (U) CLEAR Normal CLEAR [facility] Comment on above: Performed By: #### U MICRO, ERUR, PREGU ####[facility] [address] [place] [address]Dr. Jannielan Iverson Color (U) LT. YELLOW Normal YELLOW [facility] Comment on above: Performed By: #### U MICRO, ERUR, PREGU ####[facility] [address] [place] [address]Dr. Nita Iverson ERUAHD A micrscopic examination will be performed if indicated. Normal [facility] Comment on above: Performed By: #### U MICRO, ERUR, PREGU ####[facility] [address] [place] [address]Dr. Jannielan Iverson Glucose Ql (U) Negative Normal NEGATIVE [facility] Comment on above: Performed By: #### U MICRO, ERUR, PREGU ####[facility] [address] [place] [address]Dr. Jannielan Iverson Hemoglobin Ql (U) LARGE Abnormal NEGATIVE [facility] Comment on above: Performed By: #### U MICRO, ERUR, PREGU ####[facility] [address] [place] [address]Dr. Jannielan Iverson Ketones Ql (U) Negative Normal NEGATIVE [facility] Comment on above: Performed By: #### U MICRO, ERUR, PREGU ####[facility] [address] [place] [address]Dr. Yilan Iverson LEUKOCYTES Negative Normal NEGATIVE [facility] Comment on above: Performed By: #### U MICRO, ERUR, PREGU ####[facility] [address] [place] [address]Dr. Yilan Iverson Nitrite Ql (U) Negative Normal NEGATIVE [facility] Comment on above: Performed By: #### U MICRO, ERUR, PREGU ####[facility] [address] [place] [address]Dr. Nita Iverson pH (U) 6.5 [pH] Normal 5-9 [facility] Comment on above: Performed By: #### U MICRO, ERUR, PREGU ####[facility] [address] [place] [address]Dr. Nita Iverson SPEC GRAVITY 1.020 Normal 1.005-<=1.02 5 [facility] Comment on above: Performed By: #### U MICRO, ERUR, PREGU ####[facility] [address] [place], [place] [address]Dr. Nita Iverson UA PROTEIN Negative Normal NEGATIVE/ TRACE [facility] Comment on above: Performed By: #### U MICRO, ERUR, PREGU ####[facility] [address] [place], [place] [address]Dr. Nita Iverson UR MICRO IND INDICATED Normal [facility] Comment on above: Performed By: #### U MICRO, ERUR, PREGU ####[facility] [address] [place], [place] [address]Dr. Nita Iverson Urobilinogen Qn (U) 1.0 {Senait'U}/dL Normal 0.2 - 1. [address] [facility] Comment on above: Performed By: #### U MICRO, ERUR, PREGU ####[facility] [address] [place], [place] [address]Dr. Nita Iverson LIPASEon 09-21-2022 Lipase [Catalytic activity/Vol] 89.0 U/L Normal 73.0-393.[address] [facility] Comment on above: Performed By: #### C MADM, LIPA, CMP ####[facility] [address] [place] [address]Dr. Nita Iverson URon 09-21-2022 , QUAL Negative Normal NEGATIVE The [place] Comment on above: Performed By: #### U MICRO, ERUR, PREGU ####[facility] [address] [place] [address]Dr. Nita Iverson PROF 14(COMP METB)on 023 Albumin [Mass/Vol] 3.5 g/dL Normal 3.4-5.0 [facility] Comment on above: Performed By: #### C MADM, LIPA, CMP #### [facility] [address] [place] [address] [address] Nita Iverson Albumin/Globulin [Mass ratio] 1.0 {ratio} Normal [facility] Comment on above: Performed By: #### C MADM, LIPA, CMP #### [facility] [address] [place] [address] [address] Nita Iverson ALP [Catalytic activity/Vol] 67 U/L Normal 46-116 [facility] Comment on above: Performed By: #### C MADM, LIPA, CMP #### [facility] [address] [place] [address] [address] Nita Iverson ALT [Catalytic activity/Vol] 30 U/L Normal 14-59 [facility] Comment on above: Performed By: #### C MADM, LIPA, CMP #### [facility] [address] [place] [address] [address] Nita Iverson Anion gap [Moles/Vol] 11.8 mmol/L Normal [facility] Comment on above: Performed By: #### C MADM, LIPA, CMP #### [facility] [address] [place] [address] [address] Nita Iverson AST [Catalytic activity/Vol] 25 U/L Normal 15-37 [facility] Comment on above: Performed By: #### C MADM, LIPA, CMP #### [facility] [address] [place] [address] [address] Nita Iverson Bilirubin [Mass/Vol] 0.3 mg/dL Normal 0.2-1.0 [facility] Comment on above: Performed By: #### C MADM, LIPA, CMP #### [facility] [address] [place] [address] [address] Nita Iverson Calcium [Mass/Vol] 9.2 mg/dL Normal 8.5-10.1 [facility] Comment on above: Performed By: #### C JANETH DENSONA, CMP #### [facility] [address] [place] [address] [address] Nita Iverson Chloride [Moles/Vol] 106 mmol/L Normal 98-[address] [facility] Comment on above: Performed By: #### C JANETH DENSONA, CMP #### [facility] [address] [place] [address] [address] Nita Iverson CO2 [Moles/Vol] 28.7 mmol/L Normal 21.0-32.0 [facility] Comment on above: Performed By: #### C SHIVANI DENSON, CMP #### [facility] [address] [place] [address] Dr. Nita Iverson Creatinine [Mass/Vol] 0.81 mg/dL Normal 0.55-1.02 [facility] Comment on above: Performed By: #### C JANETH DENSONA, CMP #### [facility] [address] [place] [address] Dr. Nita Iverson EGFR-AF BELGIAN >60 Normal >=60 [facility] Comment on above: Performed By: #### C JANETH DENSONA, CMP #### [facility] [address] [place] [address] Dr. Nita Iverson EGFR-NON AF BELGIAN >60 Normal >=[address] [facility] Comment on above: Performed By: #### C JANETH DENSONA, CMP #### [facility] [address] [place] [address] Dr. Nita Iverson Globulin (S) [Mass/Vol] 3.5 g/dL Normal [facility] Comment on above: Performed By: #### C JARETT LIPA, CMP #### [facility] [address] [place] [address] Dr. Nita Iverson Glucose [Mass/Vol] 106 mg/dL Normal 74-106 [facility] Comment on above: Performed By: #### C JARETT LIPA, CMP #### [facility] [address] [place] [address] [address] Nita Iverson Potassium [Moles/Vol] 4.5 mmol/L Normal 3.5-5.[address] [facility] Comment on above: Performed By: #### C SHIVANI DENSON, CMP #### [facility] [address] [place] [address] [address] Nita Iverson Protein [Mass/Vol] 7.0 g/dL Normal 6.4-8.2 [facility] Comment on above: Performed By: #### C JARETT LIPA, CMP #### [facility] [address] [place] [address] [address] Nita Iverson Sodium [Moles/Vol] 142 mmol/L Normal 136-145 [facility] Comment on above: Performed By: #### C JARETT LIPA, CMP #### [facility] [address] [place] [address] Dr. Nita Iverson Urea nitrogen [Mass/Vol] 12.0 mg/dL Normal 7.0-18.0 [facility] Comment on above: Performed By: #### C JARETT LIPA, CMP #### [facility] [address] [place] [address] [address] Nita Iverson Urea nitrogen/Creatinine [Mass ratio] 14.8 mg/mg Normal [facility] Comment on above: Performed By: #### C JANETH DENSONA, CMP #### [facility] [address] [place] [address] [address] Nita Iverson URINE MICROSCOPIC ONLYon BACTERIA NONE SEEN Normal NONE SEEN [facility] Comment on above: Performed By: #### U MICRO, ERUR, PREGU ####[facility] [address] [place] [address]Dr. Nita Iverson Bacteria identified Cx Nom (U) NOT INDICATED Normal [facility] Comment on above: Performed By: #### U MICRO, ERUR, PREGU ####[facility] [address] [place] [address]Dr. Nita Iverson CAST NONE SEEN Normal NONE SEEN [facility] Comment on above: Performed By: #### U MICRO, ERUR, PREGU ####[facility] [address] [place], [place] [address]Ai. Nita Iverson Crystals LM Nom (Urine sed) NONE SEEN Normal NONE SEEN [facility] Comment on above: Performed By: #### U MICRO, ERUR, PREGU ####[facility] [address] [place], [place] [address]Yx. Nita Iverson Epithelial cells LM Ql (Urine sed) RARE Normal NONE SEEN /RARE [facility] Comment on above: Performed By: #### U MICRO, ERUR, PREGU ####[facility] [address] [place], [place] [address]Ve. Nita Iverson MUCOUS NONE SEEN Normal NONE SEEN [facility] Comment on above: Performed By: #### U MICRO, ERUR, PREGU ####[facility] [address] [place] [address]Dr. Nita Iverson RBC 20-50 Abnormal 0-[address] [facility] Comment on above: Performed By: #### U MICRO, ERUR, PREGU ####[facility] [address] [place], [place] [address]Bf. Nita Iverson WBC 2-5 Abnormal [address] SEEN [facility] Comment on above: Performed By: #### U MICRO, ERUR, PREGU ####[facility] [address] [place] [address]Dr. Nita Iverson US THYROIDon 09-06-2022 US THYROID [...] by: PREET RODRIGEZ Date: 2022-09-06 20:19 Normal [facility] MRI HIP RT WO CONon 08-19-19 MRI HIP RT WO CON EXAM: MRI HIP RT WO CON HISTORY: Right hip pain COMPARISON: X-rays 07/07/2022 TECHNIQUE: Axial and coronal large iernl-il-unjb sequencing through the pelvis and both hips. Small zgmve-vd-iges coronal, sagittal and axial sequencing through the [...] at approximately the 11:00 position (coronal small juurf-oh-ajrq 14). The remainder of the labrum exhibits no gross irregularity. The left acetabulum is normal. The bilateral femoral head and acetabular cartilage exhibits no chondral or osteochondral irregularity. The pubic symphysis and sacroiliac joints are normal. Thickening and interstitial edema of the right gluteus medius tendon insertion to the greater trochanter (coronal small yfmqd-ba-dwdj 13 and axial large jmrpj-do-tnzr 23). Mild amount of adjacent edema. No abnormal bursal fluid collection. Questionable mild thickening and interstitial edema of the left gluteus minimus tendon (coronal large mcbie-wg-beof 17 and axial large tfbzx-dg-lpon 23 and to a lesser degree the gluteus medius tendon (coronal large epcja-ne-dcpn 21). No tendon tear, tendon tear or [...] by: PAULETTE PHIPPS Date: 2022-08-18 22:39 Normal [facility] PAP ACOG PANEL 2: 30 to 65on 08-11-2022 . . Normal [facility] Comment on above: Result Comment: Perf ormed at: WB Performed By: #### [id number] ####[facility] [address] [place] [address]Dr. Nita Iverson Age Gdln ACOG Testing 30-65 Normal [facility] Comment on above: Performed By: #### 4 [id number] ####[facility] [address] [place] [address]Dr. Nita Iverson DIAGNOSIS: Comment Normal [facility] Comment on above: Result Comment: NEGA TIVE FOR INTRAEPITHELIAL LESION OR MALIGNANCY. Performed at: WB Performed By: #### 4 [id number] ####[facility] [address] [place] [address]Dr. Nita Iverson HPV Aptima Negative Normal Negative [facility] Comment on above: Result Comment: This nucleic acid amplification test detects fourteen high-risk HPV types (16,18,31,33,35,39,45,51,52,56,58,59,66,68) without differentiation. Performed at: =G Performed By: #### 4 [id number] ####[facility] [address] [place] [address]Dr. Nita Iverson HPV Genotype Reflex Comment Normal [facility] Comment on above: Result Comment: Crit eria not met, HPV Genotype not performed. Performed at: WB Performed By: #### 4 [id number] ####[facility] [address] [place], [place] [address]Dr. Nita Iverson Methodology: Comment Normal [facility] Comment on above: Result Comment: This liquid based ThinPrep(R) pap test was screened with the use of an image guided system. Performed at: WB Performed By: #### 4 [id number] ####[facility] [address] [place], [place] [address]DrMaribel Iverson Note: Comment Normal [facility] Comment on above: Result Comment: The Pap smear is a screening test designed to aid in the detection of premalignant and malignant conditions of the uterine cervix. It is not a diagnostic procedure and should not be used as the sole means of detecting cervical cancer. Both false-positive and false-negative reports do occur. . Performed at: WB Performed By: #### 4 [id number] ####[facility] [address] [place], [place] [address]DrMaribel Iverson Performed by: Comment Normal [facility] Comment on above: Result Comment: Jordana Pruett, Skirt Clipper (ASCP) Performed at: WB Performed By: #### 4 [id number] ####[facility] [address] [place], [place] [address]DrMaribel Iverson Specimen adequacy: Comment Normal [facility] Comment on above: Result Comment: Sati sfactory for evaluation. No endocervical component is identified. Performed at: WB Performed By: #### 4 [id number] ####[facility] [address] [place], [place] [address]DrMaribel Iverson US PELVIS AND TRANSVAGon US PELVIS [...] by: PAULETTE GALVAN Date: 2022-06-06 17:51 [address] [facility] [address] ABD/PELV WO W CONon 04-25 [...] by: PREET RODRIGEZ Date: 2022-04-25 08:09 Normal [facility] NM RENAL W_WO PHARMon 2021 NM [...] by: PAULETTE GALVAN Date: 2022-03-22 17:23 Normal [facility] XR KUB 1 VIEWon 03-22-2022 XR [...] by: PAULETTE GALVAN Date: 2022-03-22 17:57 Normal [facility] US THYROIDon 03-09-2022 US THYROID EXAMINATION: [...] IMPRESSION: Multinodular goiter, grossly stable TI-RADS: The [place] [employer] TI-RADS committee's white paper recommendations for thyroid lesions classified as TR4 (moderately suspicious) are listed below: > 1.0 cm. Follow-up ultrasound in 1, 2, 3, and 5 years. > 1.5 cm. FNA. J. Am Rosendo Radiol 2017;14:587-595. Electronically authenticated by: PAULETTE GALVAN Date: 2022-03-09 07:[address] [facility] [address] ABD/PELV WO W CONon 03-07 [...] by: PREET RODRIGEZ Date: 2022-03-07 16:45 Normal [facility] MG MAMM SCREEN 3D GRACIE CADon 02-09-2022 MG MAMM SCREEN 3D GRACIE CAD Patient: STACEY SAHU Exam Date: 02/09/2022 : 1975 Gender:F Ordering : [facility] Admission #: [id number] Family : Order #: [id number] CLICK HERE TO VIEW EXAM RADIOLOGY REPORT [...] colon cancer at age 56. LOCATION: [facility] BREAST COMPOSITION: Scattered areas fibroglandular density. [...] M.D. on 02/09/2022 at 14:[address] [facility] ([facility])on SARS-CoV-2 (COVID-19) RNA IZAIAH+probe Ql (Unsp spec) Detected Critically abnormal NOT DETECTED [facility] Comment on above: Result Comment: This test is not yet approved or cleared by the [place] FDA. When there are no FDA-approved or cleared tests available, and other criteria are met, FDA can make tests available under an emergency access mechanism called an Emergency Use Authorization (EUA). The EUA for this test is supported by the [place] of Health and Human Service's declaration that [...] longer be used). Performed By: #### C [facility] #### [facility] [address] [place] [address] Dr. Nita Iverson MR femur RT wo/w conon 12-04 MR femur RT wo/w con [facility] [place] [address] MRI Report Signed Patient: Stacey Sahu MR#: [id number] 240 : 1975 Acct:[id number] Age/Sex: 46 / F ADM Date: 12/03/21 Loc: MR Room: Type: [facility] Attending Dr: Alexis Saenz II, MD Ordering [...] mass or abnormal enhancement. Impression dictated by: Jorge Luis Stock Jr., M.D.12/04/2021 3:45 PM Dictation Location: [place] [address] Transcribed By: [facility] 12/04/21 1545 Dictated By: Jorge Luis Stock Jr, MD 12/04/21 1519 Signed By: 12/04/21 1545 Normal [facility] XR femur RT 2V*on 11-17-2021 XR femur RT 2V* [facility] [address] [place] [address] [place] [address] XRay Report Signed Patient: Stacey Sahu MR#: [id number] 240 : 1975 Acct:[id number] Age/Sex: 46 / F ADM Date: 11/17/21 Loc: [facility] Room: Type: [facility] Attending Dr: Alexis Saenz II, MD Ordering Provider: Alexis Saenz MD Date of Service: 11/17/21 XR/XR hip RT min 2V(w/wo pelvis)*: Right hip pain ([id number]) XR/XR femur RT 2V*: Right hip pain [...] Vipin Iniguez M.D.11/17/2021 3:56 PM Dictation Location: [place] [address] Transcribed By: [facility] 11/17/21 1556 Dictated By: Vipin Iniguez DO 11/17/21 1553 Signed By: 11/17/21 1556 [facility] Large Joint Arthro/Inj: R gr eater trochanteric bursa [facility] Vital Signs Date Time Vital Sign Value Performing Clinician Facility 11-28-2023 09:08-0400 Blood Pressure Location LESLIE JUNG [facility] 11-28-2023 09:08-0400 Diastolic blood pressure 84 mm[Hg] LESLIE JUNG [facility] 11-28-2023 09:08-0400 Heart rate 82 /min LESLIE JUNG [facility] 11-28-2023 09:08-0400 Respiratory rate 16 /min LESLIE ANGELICA [facility] 11-28-2023 09:08-0400 Systolic blood pressure 139 mm[Hg] LESLIE ANGELICA [facility] 09-12-2023 07:42-0400 Diastolic blood pressure 103 mm[Hg] Imani Chan SOLE CUTTER-LENS BLOCKER Work Phone: [employer] [facility] 09-12-2023 07:42-0400 Heart rate 95 /min Imani Chan SOLE CUTTER-LENS BLOCKER Work Phone: [employer] [facility] 09-12-2023 07:42-0400 Respiratory rate 18 /min Imani Chan SOLE CUTTER-LENS BLOCKER Work Phone: [facility] [employer] [facility] 09-12-2023 07:42-0400 SaO2% (BldA) [Mass fraction] 99 % Imani Chan SOLE CUTTER-LENS BLOCKER Work Phone: [facility] [employer] 09-12-2023 07:42-0400 Systolic blood pressure 136 mm[Hg] Imani Chan SOLE CUTTER-LENS BLOCKER Work Phone: [facility] [employer] [facility] 06-28-2023 10:34-0500 Body height 149.9 cm Evans Verhoff PA-C Work Phone: [facility] [employer] [facility] 06-28-2023 10:34-0500 Body mass index (BMI) [Ratio] 38.78 kg/m2 Evans Verhoff PA-C Work Phone: [facility] [employer] 06-28-2023 10:34-0500 Body weight 87.09 kg Evans [facility]hoff [facility]-C [facility] 06-28-2023 10:34-0500 Diastolic blood pressure 107 mm[Hg] Evans Verhoff PA-C [facility] Phone: [facility] 06-28-2023 10:34-0500 Heart rate 93 /min Evans Verhoff PA-C Work Phone: [facility] 06-28-2023 10:34-0500 SaO2% (BldA) [Mass fraction] 97 % Evans Verhoff PA-C [facility] 06-28-2023 10:34-0500 Systolic blood pressure 139 mm[Hg] Evans Verhoff PA-C Work Phone: [facility] 05-29-2023 14:39-0500 Blood Pressure Location Jose JOSE [facility] 05-29-2023 14:39-0500 Diastolic blood pressure 83 mm[Hg] Jose GARCIA [facility] 05-29-2023 14:39-0500 Heart rate 88 /min Jose GARCIA [facility] 05-29-2023 14:39-0500 Respiratory rate 16 /min Jose GARCIA [facility] 05-29-2023 14:39-0500 Systolic blood pressure 131 mm[Hg] Jose GARCIA [facility] 11-24-2022 13:48-0400 Diastolic blood pressure 106 mm[Hg] Beth SALAM [facility] 11-24-2022 13:48-0400 Mean blood pressure 121 mm[Hg] Beth SALAM [facility] 11-24-2022 13:48-0400 Systolic blood pressure 152 mm[Hg] Beth SALAM [facility] 11-24-2022 13:46-0400 Blood Pressure Location Beth SALAM [facility] 11-24-2022 13:46-0400 Diastolic blood pressure 118 mm[Hg] Beth SALAM [facility] 11-24-2022 13:46-0400 Heart rate 80 /min Beth SALAM [facility] 11-24-2022 13:46-0400 Respiratory rate 16 /min Beth SALAM [facility] 11-24-2022 13:46-0400 Systolic blood pressure 161 mm[Hg] Beth SALAM [facility] 04-26-2022 12:03-0400 Blood Pressure Location Jose GARCIA [facility] 04-26-2022 12:03-0400 Diastolic blood pressure 95 mm[Hg] Jose GARCIA [facility] 04-26-2022 12:03-0400 Heart rate 102 /min Jose GARCIA [facility] 04-26-2022 12:03-0400 Systolic blood pressure 141 mm[Hg] Jose GARCIA [facility] 02-21-2022 12:39-0400 Body weight 88.81 kg Shiraz Mendis DO Work Phone: [facility] 02-21-2022 12:39-0400 Diastolic blood pressure 85 mm[Hg] Shiraz Mendis DO Work Phone: [facility] 02-21-2022 12:39-0400 Heart rate 76 /min Shiraz Mendis DO Work Phone: [facility] 02-21-2022 12:39-0400 Systolic blood pressure 138 mm[Hg] Shiraz Mendis DO Work Phone: [facility] 12-09-2021 09:00-0400 Body height 160.02 cm Alexis Saenz II Other [employer] Other 12-09-2021 09:00-0400 Body mass index (BMI) [Ratio] 34.47 kg/m2 Alexis Saenz II Other [employer] Other 12-09-2021 09:00-0400 Body weight 88.27 kg Alexis Saenz II Other [employer] Other 11-17-2021 15:30-0400 Body height 160.02 cm Alexis Saenz II Other [employer] Other 11-17-2021 15:30-0400 Body mass index (BMI) [Ratio] 32.41 kg/m2 Alexis Saenz II Other [facility] Other 11-17-2021 15:30-0400 Body weight 83.01 kg Alexis Saenz II Other [facility] Other Encounters Encounter Date Encounter Type Care Provider Facility Start: 03-19-2024 End: 03-19-2024 Patient encounter procedure Lois Mckeon MD Work Phone: Orthopaedic Surgery [facility] Comment on above: Pain of right hip (P rimary Dx); Primary osteoarthritis of right hip Start: 03-19-2024 End: 03-19-2024 ambulatory LIOS MCKEON Facility:[facility] Start: 03-19-2024 End: 03-19-2024 Subsequent hospital visit by physician Xr [facility] 1 Xray [facility] Comment on above: Pain in right hip [M 25.551] Start: 03-18-2024 End: 03-22-2024 Telephone encounter Lois Mckeon MD Work Phone: Orthopaedic Surgery [facility] Start: 03-06-2024 End: 03-06-2024 ambulatory ALEXANDREA HOLDEN [facility] Start: 03-06-2024 End: 03-06-2024 ambulatory TINO LASSITER [facility] Start: 02-29-2024 End: 02-29-2024 ambulatory ESSIE AICHHOLZ Not Available Start: 01-30-2024 End: 01-30-2024 ambulatory ESSIE AICHHOLZ Not Available Start: 12-13-2023 End: 12-14-2023 ambulatory JOSIAS LOPEZ Not Available Start: 12-11-2023 End: 12-13-2023 ambulatory TINO PEREZ Not Available Start: 12-04-2023 End: 12-05-2023 ambulatory TINO PEREZ Not Available Start: 11-30-2023 End: 12-01-2023 ambulatory TINO PEREZ Not Available Start: 11-28-2023 End: 11-29-2023 ambulatory JOSIAS LOPEZ Not Available Start: 11-28-2023 End: 11-28-2023 ambulatory LESLIE JUNG Facility:[facility] Start: 11-28-2023 End: 11-28-2023 Patient encounter procedure LESLIE JUNG [facility] Start: 11-23-2023 End: 11-24-2023 ambulatory KOLE FULTON Not Available Start: 11-21-2023 End: 11-22-2023 ambulatory JAMIE RANDHAWA Not Available Start: 11-16-2023 End: 11-16-2023 ambulatory JAMIE RANDHAWA Not Available Start: 11-08-2023 End: 11-08-2023 ambulatory LUNDBERG FAWWAD Not Available Start: 11-08-2023 End: 11-08-2023 ambulatory JANET MODI Not Available Start: 10-25-2023 End: 10-25-2023 ambulatory LUNDBERG FAWWAD Not Available Start: 09-28-2023 End: 09-28-2023 ambulatory ESSIE ALANIZJACOB Not Available Start: 09-20-2023 Telephone encounter Nora FROST [facility] Start: 09-12-2023 End: 09-12-2023 ambulatory IMANI CHAN [facility] Start: 09-12-2023 End: 09-12-2023 Office outpatient visit 15 minutes Imani Chan [employer] BLOCKER Work Phone: [facility] Comment on above: Chronic right hip pa in (Primary Dx) Start: 09-06-2023 End: 09-06-2023 ambulatory NEDA CACERES Not Available Start: 09-01-2023 End: 09-02-2023 ambulatory PJ GANNON [facility] Start: 08-29-2023 End: 08-29-2023 ambulatory TINO LASSITER [facility] Start: 08-26-2023 End: 08-26-2023 ambulatory MARY Gonzalez FRANCES Not Available Start: 08-21-2023 End: 08-21-2023 ambulatory IMANI CHAN [facility] Start: 07-13-2023 End: 07-13-2023 ambulatory ESSIE AICHHOLZ Not Available Start: 07-11-2023 End: 07-11-2023 ambulatory Juliana Block Other [facility] Other Start: 07-11-2023 Office outpatient vi sit 25 minutes Juliana Block [facility] Start: 07-04-2023 End: 07-04-2023 ambulatory ESSIE AICHHOLZ Not Available Start: 06-28-2023 End: 06-28-2023 ambulatory EVANS ANDERSON [facility] Start: 06-28-2023 End: 06-28-2023 Office outpatient visit 15 minutes Evans Anderson PA-C Work Phone: [facility] Comment on above: Lumbar radiculopathy (Primary Dx) Start: 05-29-2023 End: 05-29-2023 ambulatory Jose GARCIA Facility:[facility] Start: 05-29-2023 End: 05-29-2023 Patient encounter procedure Jose GARCIA [facility] Start: 05-10-2023 End: 05-10-2023 ambulatory NEDA CACERES Not Available Start: 02-02-2023 End: 02-02-2023 ambulatory Beth [facility] Facility:[facility] Start: 02-02-2023 End: 02-02-2023 ambulatory Beth [facility] Facility:[facility] Start: 02-02-2023 End: 02-02-2023 Lab Drop off Beth [facility] Start: 02-01-2023 End: 02-01-2023 ambulatory Beth SALAM Facility:[facility] Start: 02-01-2023 End: 02-01-2023 Patient encounter procedure Beth SALAM [facility] Start: 01-05-2023 End: 01-05-2023 ambulatory Beth SALAM Facility:[facility] Start: 01-03-2023 End: 01-03-2023 ambulatory Beth SALAM Facility::[id number] Start: 12-06-2022 End: 12-06-2022 ambulatory Beth SALAM Facility:[facility] Start: 12-06-2022 End: 12-06-2022 Patient encounter procedure Beth SALAM [facility] Start: 11-24-2022 End: 11-24-2022 Patient encounter procedure Beth SALAM [facility] Start: 11-22-2022 End: 11-23-2022 ambulatory CAN VALERA Facility:[facility] Start: 11-08-2022 ambulatory BYRON GARCIA . Facility:[facility] Start: 10-26-2022 End: 10-27-2022 ambulatory NIURKA RYAN Facility:[facility] Start: 10-18-2022 End: 10-18-[address] NEDA CACERES Facility:[facility] Start: 10-04-2022 End: 10-05-[address] NEDA CACERES Facility:[facility] Start: 09-21-2022 End: 09-22-2022 ambulatory EDNA MCRAE . Facility:[facility] Start: 09-06-2022 End: 09-07-[address] NEDA CACERES Facility:[facility] Start: 08-18-2022 End: 08-19-2022 ambulatory ADRIANNA JIMENEZ Facility:[facility] Start: 08-04-2022 End: 02-10-[address] MARKO MORALES . Facility:[facility] Start: [...] encounter procedure Jose GARCIA [facility] Start: 04-22-2022 End: 04-23-2022 ambulatory NIURKA RYAN Facility:[facility] Start: 03-29-2022 End: 03-30-[address] MARKO MORALES . Facility:[facility] Start: 03-22-2022 End: 03-23-2022 ambulatory NIURKA RYAN Facility:[facility] Start: 03-22-2022 End: 03-23-[address] MARKO MORALES . Facility:[facility] Start: 03-08-2022 End: 03-09-[address] NEDA CACERES Facility:[facility] Start: 03-08-2022 End: 03-08-2022 Patient encounter procedure Jose GARCIA [facility] Start: 03-07-2022 End: 03-08-2022 ambulatory NIURKA RYAN Facility:[facility] Start: 02-21-2022 End: 02-21-2022 Patient encounter procedure Shiraz Roy DO Work Phone: Spine Medicine Comment on above: Tendinopathy of righ t gluteal region (Primary Dx); Trochanteric bursitis of right hip; Chronic bilateral low back pain without sciatica; Lumbar spondylosis Start: 02-09-2022 End: 02-10-2022 ambulatory NIURKA RYAN Facility:[facility] Start: 01-24-2022 End: 01-24-2022 ambulatory NIURKA RYAN Facility:[facility] Start: 01-17-2022 End: 01-17-2022 Patient encounter procedure Jorge Luis Page DO Work Phone: Orthopaedics Comment on above: Trochanteric bursiti s of right hip (Primary Dx); Lumbago-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 Start: 01-05-2022 End: 01-05-2022 ambulatory Alexis Norfolk II Other [facility] Other Start: 01-05-2022 Telephone encounter Alexis Dany II [facility] Start: 12-31-2021 End: 12-31-2021 Patient encounter procedure Jorge Luis Page DO Work Phone: Orthopaedics Comment on above: Trochanteric bursiti s of right hip (Primary Dx) Start: 12-09-2021 End: 12-09-2021 ambulatory Alexis Norfolk II Other [facility] Other Start: 12-09-2021 Office outpatient vi sit 25 minutes Alexis Norfolk II [facility] Start: 11-17-2021 End: 11-17-2021 ambulatory Alexis Norfolk II Other [facility] Other Start: 11-17-2021 Office outpatient ne w 45 minutes Alexis Dany II [facility] Start: 06-02-2017 End: 06-03-2017 Ambulatory DEFAULT PHYSICIAN Facility:[facility] Start: 05-15-2017 End: 05-16-2017 Ambulatory DEFAULT PHYSICIAN Facility:[facility] Start: 05-01-2017 End: 05-02-2017 Ambulatory DEFAULT PHYSICIAN Facility:[facility] Procedures Date Procedure Procedure Detail Performing Clinician Start: 03-19-2024 Radex hip unilateral with pelvis 2-3 views Mayito Gifford PA-C Work Phone: Start: 12-24-2022 Lobectomy of thyroid gland Jose GARCIA Start: 02-14-2022 Adult depression scr eening assessment Shiraz Roy DO Work Phone: Start: 12-31-2021 Arthrocentesis aspir &/inj major jt/bursa w/o us Jorge Luis Page DO Work Phone: Start: 12-15-2020 Colonoscopy Jorge Luis sotelo DO Work Phone: Hysterectomy Jose GARCIA Laparoscopy Jose GARCIA Other bilateral liga tion and division of fallopian tubes Jose GARCIA partial colectomy Jose LAUREN LANGLEY Tonsillectomy Jose GARCIA Plan of Treatment Date Care Activity Detail Author Start: 2036 HEPATITIS B (1 of 3 - Risk 3-dose series) HEPATITIS B (1 of 3 - Risk 3-dose series) [facility] Start: 09-11-2024 Tobacco Screening Tobacco Screening [facility] Start: 08-21-2024 Adult BMI Screening Adult BMI Screen ing [facility] Start: 06-28-2024 Adult BMI Screening Adult BMI Screen ing [facility] Start: 06-28-2024 Tobacco Screening Tobacco Screening [facility] Start: 04-16-2024 End: 04-16-2024 Patient encounter procedure 04/16/2024 1:10 PM EDT Office Visit Orthopaedics [address] [place] [address] Lois Mckeon MD [address] [place] [id number] MRI follow up Orthopaedics Comment on above: MRI follow up Start: 02-25-2024 Covid-19 Vaccine ( season) Covid-19 Vaccine ( season) [facility] Start: 02-25-2024 Influenza vaccination Influenza Vacc ine (#1) [facility] Start: 12-15-2023 DIABETES SCREEN DIABETES SCREEN [facility] Start: 12-15-2023 Diabetes Screening Diabetes Screenin g [facility] Start: 08-30-2023 End: 08-30-2023 Patient encounter procedure 08/30/2023 8:15 AM EST Office Visit [facility] [address] [place] [id number] Evans Anderson PA-C [address] [place] [address] [facility] Start: 08-04-2023 Screening for malign ant neoplasm of breast Mammogram Screening [facility] Start: 02-24-2023 Influenza vaccination Influenza Vacc ine [facility] Start: 02-14-2023 Adult depression screening assessment DEPRESSION SCREENING [facility] Start: 02-24-2022 Influenza vaccination INFLUENZA (#1) [facility] Start: 12-15-2021 Colonoscopy COLONOSCOPY [facility] Start: 12-15-2021 COLORECTAL CANCER SCREENING COLORECTAL CANCER SCREENING [facility] Start: 12-15-2021 Screening for malign ant neoplasm of colon [facility] Start: 2021 COLOGUARD (FIT-DNA) COLOGUARD (FIT-D NA) [facility] Start: [address] COLONOGRAPHY [facility] Start: 2021 FECAL OCCULT BLOOD FECAL OCCULT BLOO D [facility] Start: 2021 Lipid panel Lipid Screening [facility] Start: 2021 LIPID SCREEN LIPID SCREEN [facility] Start: 2021 Screening for malign ant neoplasm of colon [facility] Start: 2021 SIGMOIDOSCOPY SIGMOIDOSCOPY [facility] Start: 2016 Mammography MAMMOGRAM [facility] Start: 2006 HPV TESTING HPV TESTING [facility] Start: 1997 PAP TESTING PAP TESTING [facility] Start: 1997 Screening for malign ant neoplasm of cervix Cervical Cancer Screening [facility] Start: 1995 DTaP,Tdap and Td Vaccines (1 - Tdap) DTaP,Tdap and Td Vaccines (1 - Tdap) [facility] Start: 1995 HEPATITIS B (1 of 3 - Risk 3-dose series) HEPATITIS B (1 of 3 - Risk 3-dose series) [facility] Start: 1995 Hepatitis B Vaccine (1 of 3 - 19+ 3-dose series) Hepatitis B Vaccine (1 of 3 - 19+ 3-dose series) [facility] Start: 1995 Urine microalbumin profile [facility] Start: 1994 Adult BMI Follow Up Plan Adult BMI Follow Up Plan [facility] Start: 1994 Anxiety Screening Anxiety Screening [facility] Start: 1994 Depression Screening Depression Scre ening [facility] Start: 1994 HIV SCREENING HIV SCREENING [facility] Start: 1994 HIV screening HIV Screening [facility] Start: 1994 MMR (1 of 2 - Risk 2-dose series) MMR (1 of 2 - Risk 2-dose series) [facility] Start: 1988 Adult depression screening assessment DEPRESSION SCREENING [facility] Start: 1986 MENINGOCOCCAL B: Consider based on risk (1 of 4 - Increased Risk Bexsero 2-dose series) MENINGOCOCCAL B: Consider based on risk (1 of 4 - Increased Risk Bexsero 2-dose series) [facility] Start: 1977 HEPATITIS A (1 of 2 - Risk 2-dose series) HEPATITIS A (1 of 2 - Risk 2-dose series) [facility] Start: 1976 COVID-19 VACCINE (#1) COVID-19 VACCI NE (#1) [facility] End: 04-18-2025 MR Hip - right WO contrast MRI HIP WO IVCON RIGHT Radiology Routine Pain of right hip 1 Occurrences starting 03/19/2024 until 04/18/2025 [facility] Work Phone: Comment on above: 1 Occurrences starti ng 03/19/2024 until 04/18/2025 [facility] Immunizations Immunization Date Immunization Notes Care Provider Kati swift 05-03-2012 influenza, whole Jose WOOTEN [facility] 05-03-2012 influenza virus vaccine, unspecified formulation Evans Anderson PA-C Work Phone: [facility] Payers Date Payer Category Payer Private Health Insurance [facility] [employer] [employer] [id number] 2022-Present [phone] [address] [place] [address] [id number] 2020 Medicaid [facility] MEDICAID [facility] MEDICAID [id number] 2020-Present [phone] [address] [place] [address] Medicaid [id number] 2020 Medicaid [id number]. 1.13.159. 2.7.3.522901.315 1976 Unknown [id number] 2.16.840.1.039552.3.579. 2.593 1976 Unknown [id number] 2.16.840.1.278235.3.579. 2.593 1976 Unknown [id number] 2.16.840.1.074761.3.579. 2.593 1976 Unknown [id number] 2.16.840.1.103486.3.579. 2.593 1976 Unknown [id number] 2.16.840.1.521422.3.579. 2.593 1976 Unknown [id number] 2.16.840.1.136864.3.579. 2.593 1976 Unknown [id number] 2.16.840.1.667456.3.579. 2.593 1976 Unknown [id number] 2.16.840.1.295560.3.579. 2.593 1976 Unknown [id number] 2.16.840.1.567694.3.579. 2.593 1976 Unknown [id number] 2.16.840.1.571554.3.579. 2.593 1976 Unknown [id number] 2.16.840.1.093216.3.579. 2.593 1976 Unknown [id number] 2.16.840.1.498152.3.579. 2.593 1976 Unknown [id number] 2.16.840.1.712173.3.579. 2.593 1976 Unknown [id number] 2.16.840.1.948015.3.579. 2.593 1976 Unknown [id number] 2.16.840.1.619397.3.579. 2.593 1976 Unknown [id number] 2.16.840.1.651488.3.579. 2.593 1976 Unknown [id number] 2.16.840.1.223384.3.579. 2.593 1976 Unknown [id number] 2.16.840.1.746903.3.579. 2.593 1976 Unknown [id number] 2.16.840.1.146286.3.579. 2.593 1976 Unknown [id number] 2.16.840.1.597692.3.579. 2.593 1976 Unknown [id number] 2.16.840.1.126474.3.579. 2.593 1976 Unknown [id number] 2.16.840.1.935432.3.579. 2.593 1976 Unknown [id number] 2.16.840.1.696659.3.579. 2.593 1976 Unknown [id number] 2.16.840.1.408392.3.579. 2.1286 1976 Unknown [id number] 2.16.840.1.177775.3.579. 2.1286 1976 Unknown [id number] 2.16.840.1.118263.3.579. 2.1286 1976 Unknown [id number] 2.16.840.1.453596.3.579. 2.1286 1976 Unknown [id number] 2.16.840.1.200898.3.579. 2.1286 1976 Unknown [id number] 2.16.840.1.753769.3.579. 2.727 1976 Unknown [id number] 2.16.840.1.210669.3.579. 2.727 1976 Unknown [id number] 2.16.840.1.564661.3.579. 2.727 1976 Unknown [id number] 2.16.840.1.308451.3.579. 2.727 1976 Unknown [id number] 2.16.840.1.232140.3.579. 2.727 1976 Unknown [id number] 2.16.840.1.486758.3.579. 2.727 1976 Unknown [id number] 2.16.840.1.710640.3.579. 2.727 1976 Unknown [id number] 2.16.840.1.024978.3.579. 2.727 1976 Unknown [id number] 2.16.840.1.935813.3.579. 2.1259 1976 Unknown [id number] 2.16.840.1.792983.3.579. 2.1259 1976 Unknown [id number] 2.16.840.1.857325.3.579. 2.1259 1976 Unknown [id number] 2.16.840.1.807028.3.579. 2.1259 1976 Unknown [id number] 2.16.840.1.623032.3.579. 2.1259 1976 Unknown [id number] 2.16.840.1.428699.3.579. 2.9 1976 Unknown [id number] 2.16.840.1.288835.3.579. 2.9 1976 Unknown [id number] 2.16.840.1.938300.3.579. 2.9 1976 Unknown [id number] 2.16.840.1.176446.3.579. 2.9 1976 Unknown [id number] 2.16.840.1.897872.3.579. 2.9 1976 Unknown [id number] 2.16.840.1.628056.3.579. 2.9 1976 Unknown [id number] 2.16.840.1.087912.3.579. 2.9 1976 Unknown [id number] 2.16.840.1.459085.3.579. 2.9 1976 Unknown [id number] 2.16.840.1.961072.3.579. 2.9 1976 Unknown [id number] 2.16.840.1.081148.3.579. 2.9 1976 Unknown [id number] 2.16.840.1.270083.3.579. 2.9 1976 Unknown [id number] 2.16.840.1.413285.3.579. 2.1258 1976 Unknown [id number] 2.16.840.1.306694.3.579. 2.1259 1976 Unknown [id number] 2.16.840.1.808125.3.579. 2.1259 1959 Unknown [id number] 2.16.840.1.071116.19 1959 Unknown [id number] Unknown Social History Date Type Detail Facility Start: 06-28-2023 End: 03-15-2024 Sex Assigned At [facility] Other Start: 07-27-2016 End: 02-21-2022 Tobacco smoking status NHIS Never smoked tobacco [facility] Start: 07-27-2016 End: 02-21-2022 Tobacco use and exposure Smokeless tobacco non-user [facility] Start: 12-15-2020 End: 02-21-2022 Alcohol intake Current non-drinker of alcohol (finding) [facility] Start: 1975 Sex Assigned At Not on file [facility] Start: 01-07-2022 End: 02-21-2022 Exposure to SARS-CoV-2 (event) Not sure [facility] Tobacco Past [facility] Comment on above: stopped 12 years ago stopped 12 years ago Tobacco smoking status No Smoking Status Entered [facility] Tobacco smoking status Never [facility] Start: 06-28-2023 End: 03-15-2024 History of Social function [facility] Functional Status Date Assessment Result Facility 11-28-2023 Functional Status N/A [facility] 05-29-2023 Functional Status N/A [facility] 11-24-2022 Functional Status N/A [facility] 04-26-2022 Functional Status N/A [facility] Clinical Notes 12-14-2020 to 03-19-2024 Lois Mckeon MD - 03/19/2024 10:32 AM EDTPatient Paulette Fox RT(R) - 03/19/2024 9:00 AM EDTTelephone Encounter - Clarissa Zacarias RN - 03/18/2024 4:54 PM EDT Note Date & Type Note Facility 03-19-2024 Note HNO ID: [id number] Author: LOIS MCKEON MD Service: ? Author Type: Physician Type: Progress Notes Filed: 03/19/2024 10:34 Note Text: She is here for chronic right hip and groin pain. Has been injected multiple times and done therapy. Takes medication. Has progressed to the point where she has pain that is affecting her quality of life. 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 Pain is in her groin and lateral hip. Pain at rest and with physical activities.Review of systems negative for fever, weight loss, malaise, fatigue, significant headache, vision changes, hearing loss, neck swelling, cough, chest pain, shortness of breath, dyspnea on exertion, abdominal pain, nausea, vomiting, diarrhea, urinary dysfunction, upper/lower extremity numbness/tingling/weakness/escobar a, heat/cold intolerance Exam mildly antalgic gait. Right hip flexion is 80 with pain and rotation 20 with pain. Abducts 20 as well. Negative straight leg raise. Neurologically intact. Pelvic and right hip x-rays show moderate degenerative changes at a very large lateral acetabular spur. Assessment chronic right hip and groin pain. Plan MRI to evaluate the articular cartilage and discussed additional treatment options. Ordered topical anti-inflammatory gel. Will see back after the scan is complete. Lois Mckeon MD [facility] 03-19-2024 History of Presen t illness Narrative She is here for chronic right hip and groin pain. Has been injected multiple times and done therapy. Takes medication. Has progressed to the point where she has pain that is affecting her quality of life. 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 Pain is in her groin and lateral hip. Pain at rest and with physical activities.Review of systems negative for fever, weight loss, malaise, fatigue, significant headache, vision changes, hearing loss, neck swelling, cough, chest pain, shortness of breath, dyspnea on exertion, abdominal pain, nausea, vomiting, diarrhea, urinary dysfunction, upper/lower extremity numbness/tingling/weakness/escobar a, heat/cold intolerance Exam mildly antalgic gait. Right hip flexion is 80 with pain and rotation 20 with pain. Abducts 20 as well. Negative straight leg raise. Neurologically intact. Pelvic and right hip x-rays show moderate degenerative changes at a very large lateral acetabular spur. Assessment chronic right hip and groin pain. Plan MRI to evaluate the articular cartilage and discussed additional treatment options. Ordered topical anti-inflammatory gel. Will see back after the scan is complete. Lois Mckeon MD documented in this encounter [facility] 03-19-2024 Instructions Clarissa Zacarias RN - 03/19/2024 10:[address] Mckeon has ordered a cream that will be delivered to your home. The company, [employer], will call or text you from [phone] phone number. Please reply or answer the call to start the process. If you do not hear from them within 48 hours, please call . documented in this encounter [facility] 03-19-2024 History of Presen t illness Narrative Radiology Service Progress Note PATIENT NAME: Stacey Sahu DATE OF SERVICE: March 19, 2024 TIME: 9:04 AM PATIENT IDENTITY VERIFICATION COMPLETED USING TWO (2) IDENTIFIERS: Name and Date of confirmed by patient verbally. FALL SCREENING: Has the patient had 2 falls in the last year or 1 fall with injury or currently using an Ambulatory Assistive Device (Walker, Cane, Wheelchair, Crutches, etc.)? No PATIENT GENDER DATA: Female. status: : No status: NO. PATIENT RELEVANT IMPLANT DATA REVIEWED: Not Applicable PATIENT PRESENTS WITH AN IMPLANTABLE OR ATTACHED FLOOR WORKER: No RADIOLOGY DEPARTMENT: General X-ray: Exam(s) Completed: Pelvis X-Ray: Pelvis with Hip Right PERIPHERAL IV DATA: Not applicable SIGNED BY: RT Rai(R) March 19, 2024 9:04 AM documented in this encounter [facility] 03-19-2024 Note HNO ID: [id number] Author: PAULETTE COREA RT(Javy) Service: ? Author Type: Technologist Type: Progress Notes Filed: 03/19/2024 09:04 Note Text: Radiology Service Progress Note PATIENT NAME: Stacey Sahu DATE OF SERVICE: March 19, 2024 TIME: 9:04 AM PATIENT IDENTITY VERIFICATION COMPLETED USING TWO (2) IDENTIFIERS: Name and Date of confirmed by patient verbally. FALL SCREENING: Has the patient had 2 falls in the last year or 1 fall with injury or currently using an Ambulatory Assistive Device (Walker, Cane, Wheelchair, Crutches, etc.)? No PATIENT GENDER DATA: Female. status: : No status: NO. PATIENT RELEVANT IMPLANT DATA REVIEWED: Not Applicable PATIENT PRESENTS WITH AN IMPLANTABLE OR ATTACHED FLOOR WORKER: No RADIOLOGY DEPARTMENT: General X-ray: Exam(s) Completed: Pelvis X-Ray: Pelvis with Hip Right PERIPHERAL IV DATA: Not applicable SIGNED BY: RT Rai(R) March 19, 2024 9:04 AM [facility] 03-18-2024 Telephone encounter Note Left message with pt to be sure to have report as well as images, but we may need an xray if do not have, he will look at xray and do assessment and determine if surgery will be an option. Clarissa Zacarias RN [facility] [facility] Work Phone: 03-18-2024 Miscellaneous Notes Left message with pt to be sure to have report as well as images, but we may need an xray if do not have, he will look at xray and do assessment and determine if surgery will be an option. Clarissa Zacarias RN Name of Caller: stacey Relationship to patient: patient Last visit in this department: Visit date not found Reason for Call: Other : has questions about what to expect at her appt on 03/19 Callback number: [phone] documented in this encounter [facility] 03-18-2024 Telephone encounter Note Name of Caller: stacey Relationship to patient: patient Last visit in this department: Visit date not found Reason for Call: Other : has questions about what to expect at her appt on 03/19 Callback number: [phone] [facility] 03-06-2024 Note SLEEP CLINIC INITIAL EVALUATION Date of Evaluation: 03/06/24 Referring Physician: Dr. Marzena Tapia Chief Complaints: NIRMALA and intolerance to CPAP History of Presenting Illness: Stacey Sahu is a 48 y.o. woman presenting to the sleep clinic for the first time. She is referred to us by her manager credit for evaluation for Inspire??? therapy. She states that she had a sleep study 15 years ago, and was diagnosed with NIRMALA. At that time, her symptoms were snoring, witnessed apneas, restless sleep and excessive daytime sleepiness. Afterwards, she was started on CPAP, which she used for about a month, before giving up due to significant claustrophobia. She did not follow-up with a sleep physician for many years, until she went to see Dr. Marzena Tapia at [facility] earlier this year. She states that the her symptoms had worsened in the interim. She underwent another diagnostic sleep study, which confirmed presence of obstructive sleep apnea. We do not have the results of the study to review of. However, according to her she was told that she was stopping breathing 22/hour. Afterwards, she was again placed on CPAP, using a fullface mask, but gave up within 2 days due to significant claustrophobia and pressure intolerance. Afterwards, she was suggested considering Inspire??? therapy, leading to this evaluation. She states that she has gained weight due to being on psych medications over the years, but more recently, she has been stable. She has been on Abilify for about 2 months and BuSpar for about 5 months. Sleep Schedule: Activities before bed: TV in the bed. Bed Time: 8:30-9 PM Sleep Latency: 1-2 hrs Nocturnal arousal: 3-4 times to use the bathroom Wakeup time: 6 AM, and feels tired Weekend Schedule: Goes to bed at 9AM, and wakes up at 7-8 AM. Nocturnal Symptoms: She denies any symptoms concerning for restless leg syndrome. According to her partner, she tosses and turns and moves her legs a lot in the sleep. She also talks and yells during sleep, very frequently. The significant other denies any motor acting out during sleep. She also admits to some headaches in the morning. Daytime Symptoms: She admits to excessive daytime sleepiness, and may nap sometimes during the daytime. She does not feel fresh in the morning. Medications used in the past, Response and Adverse effect: S. No Medication Dose Frequency/daily dose Response Adverse effect Reason for discontinuation 1 Seroquel 50 mg BT Helped the mood Got sick Side effects 2 Abilify 10 mg Once daily Not for sleep None Currently taking Current Medications Affecting Sleep: Abilify, buspirone, cetirizine and tramadol. CPAP Details (Not using currently): Mask Type Full facemask Humidifier Yes Claustrophobia Yes Pressure Intolerance Yes Leakage No Aerophagia No Airway Congestion No Airway Dryness No Renews Supplies No Childhood Sleep History: Normal Restless Leg Syndrome Symptoms and Treatment: Urge to move the legs: No Rest makes it worse: NA Gets better with movements: NA Evening worsening: NA Previous Labs: Previous [employer] labs: NA Obstructive Sleep Apnea Screening (STOP BANG): STOP 1 Do you SNORE loudly (louder than talking or loud enough to be heard through closed doors)? Yes 2 Do you often feel TIRED, fatigued, or sleepy during daytime? Yes 3 Has anyone OBSERVED you stop breathing during your sleep? Yes 4 Do you have or are you being treated for high blood PRESSURE? No BANG 5 BMI more than 35kg/m2? Yes 6 AGE over 50 years old? No 7 NECK circumference > 16 inches (40cm)? Yes 8 GENDER: Male? No Total Score 5 High risk of NIRMALA: Yes 5 - 8 Intermediate risk of NIRMALA: Yes 3 - 4 Low risk of NIRMALA: Yes 0 - 2 Priyank Arteaga et al Anesthesiology 2008 and BJA 2011 [place] Sleepiness Scale: How likely are you to doze off or fall asleep in the following situations, in contrast to feeling just tired? Sitting and reading 2 Watching TV 2 Sitting, inactive in a public place (e.g. a theatre or a meeting) 1 As a passenger in a car for an hour without a break 1 Lying down to rest in the afternoon when circumstances permit 2 Sitting and talking to someone 1 Sitting quietly after a lunch without alcohol 1 In a car, while stopped for a few minutes in the traffic 0 Total score: 10 0 = would never doze 1 = slight chance of dozing 2 = moderate chance of dozing 3 = high chance of dozing === (more content not included)... [facility] 03-06-2024 Note Currently resolved [facility] 03-06-2024 Note Currently stable and controlled and she is going for pulmonary appt today [facility] 03-06-2024 Note Lipid abnormalities are still elevated with Chol and LDL not within goal. D/w pt will increase lipitor to 80 mg daily and pt to call office for any myalgias or concerns, repeat labs in 2-3 months- LFT and Lipid levels. [facility] 03-06-2024 Note Pt is here for a six month follow up. Pt denies sob, chest pains, palpatations Review of Systems Cardiovascular: Chest pain: discomfort , intermittent. Palpitations: not as bad . All other systems reviewed and are negative. [facility] 03-06-2024 Note [facility]TP CARDIOLOGY PROGR ESS NOTE HPI: Stacey Sahu is a 48 y.o. female here for HPI Pt presents today for known h/o Pulm HTN, HPL. Patient here for 10 mo follow up palpitations and pulmonary hypertension. She had echo and wore 7 day Holter monitor back in October 2022 prior to thyroid surgery. She has had thyroid surgery and has recovered well. Denied chest pain, Shortness of breath, orthopnea, or palpitations. Reports that she has appointment with pulmonary today in adrian- r/t NIRMALA untreated. Visit Vitals BP (!) 151/99 (BP Location: Right wrist, Patient Position: Sitting) Pulse 87 Ht 1.524 m (5') Wt 88.9 kg (196 lb) SpO2 98% BMI 38.28 kg/m??? Smoking Status Never BSA 1.94 m??? Allergies Allergen Reactions Penicillins Other and Unknown As a child Medications: Current Outpatient Medications on File Prior to Visit Medication Sig Dispense Refill ARIPiprazole (Abilify) 10 mg tablet Take 10 mg by mouth in the morning. busPIRone (Buspar) 7.5 mg tablet Take 7.5 mg by mouth twice a day. cetirizine (ZyrTEC) 10 mg tablet Take 10 mg by mouth in the morning. omeprazole (PriLOSEC) [address] capsule Take 40 mg by mouth in the morning. [DISCONTINUED] atorvastatin (Lipitor) 40 mg tablet Take 1 tablet (40 mg) by mouth in the morning. 90 tablet 3 No current facility-administered medications on file prior to visit. Physical Exam: Constitutional: Appearance: Normal appearance. Without apparent distress, obese HENT: Head: Normocephalic and atraumatic. Nose: Nose normal. Mouth/Throat: Mouth: Mucous membranes are moist. Eyes: Extraocular Movements: Extraocular movements intact. Conjunctiva/sclera: Conjunctivae normal. Neck: Vascular: No JVD. Cardiovascular: Rate and Rhythm: Normal rate and regular rhythm. Pulses: Dorsalis pedis pulses are 3 on the right side and 3on the left side. Posterior tibial pulses are 3 on the right side and 3 on the left side. Heart sounds: Normal heart sounds, S1 normal and S2 normal. Pulmonary: Effort: Pulmonary effort is normal. Breath sounds: Normal breath sounds. Abdominal: General: Bowel sounds are normal. Palpations: Abdomen is soft. Musculoskeletal: General: Normal range of motion. Cervical back: Normal range of motion. Right lower leg: No edema. Left lower leg: No edema. Skin: General: Skin is warm and dry. Capillary Refill: Capillary refill takes less than 2 seconds. Neurological: General: No focal deficit present. Mental Status: She is alert and oriented to person, place, and time. Psychiatric: Mood and Affect: Mood normal. Behavior: Behavior normal. Thought Content: Thought content normal. Judgment: Judgment normal. Labs: 03/06/24 Liver function normal Chol 227, HDL 58, Trig 98, LDL 150- remains elevated 07/25/23 NA, K+ normal BUN/CR normal renal function 03/25/23 CBC normal NA 140, K+ 4.1 - normal BUN 15, CR 0.79, GRF> 60- normal Liver function normal Chol 237, Trig 120, HDL 59, LDL 154- elevated 11/23/18 Chol 242, Trig 175, HDL 44, LDL 163 TSH normal Last lab values have been reviewed 03/25/23 CBC normal NA 140, K+ 4.1 - normal BUN 15, CR 0.79, GRF> 60- normal Liver function normal Chol 237, Trig 120, HDL 59, LDL 154- elevated 11/23/18 Chol 242, Trig 175, HDL 44, LDL 163 TSH normal Last lab values have been reviewed CV Testing Event monitor 11/23/22 TTE EKG (11/08/2022): sinus rhythm ECHO (2017) Global left ventricular systolic function is normal (Visually estimated EF 55%). No regional wall motion abnormality. Normal diastolic function. Normal right ventricular systolic function. Doppler studies suggest normal right sided pressures. No pericardial effusion. No significant valvular abnormalities EKG (2016) Normal sinus rhythm Nonspecific T wave abnormality Abnormal ECG When compared with ECG of 05/19/2015 Nonspecific T wave abnormality Anterolateral leads 05/13/2016 Echo - [facility] Normal LV systolic function normal RV size/function No valve abnormality. RVSP 27mmHg 06/01/15 Echo Global left ventricular systolic function is normal (Visually estimated EF 55%). Concentric remodeling. Normal right ventricular systolic function. Unable to assess right sided pressures due to lack of tricuspid regurgitation. Mild pulmonary regurgitation Assessment/Plan: Mixed hyperlipidemia Lipid abnormalities are still elevated with Chol and LDL not within goal. D/w pt will increase lipitor to 80 mg daily and pt to call office for any myalgias or concerns, repeat labs in 2-3 months- LFT and Lipid levels. Pulmonary HTN (CMS/HCC) Currently stable and controlled and she is going for pulmonary appt today Chest pain Currently resolved RCT in 3-6 months, repeat LFT and lipid levels again in 2-3 months [facility] 11-28-2023 Hospital Discharg e instructions Patient Education [...] include: ?8 oz (237 mL) of milk, pgfmgvu-dasxbxjegboj-sippr milk, and calcium-fortifiedfruit juice. Calcium-fortified means that [...] ?Spinach (cooked), rhubarb, beets, sweet potatoes, and Surinamese chard. ?Peanuts. ?Potato chips, marshallese fries, and baked potatoes with skin on. ?Nuts and nut products. ?Chocolate. If you regularly take a diuretic medicine, make sure to eat at least 1 or 2 servings of fruits or vegetables that are high in potassium each day. These include: ?Avocado. ?Banana. ?Anderson, prune, carrot, or tomato juice. ?Baked potato. [...] magnesium, fish oil, or vitamin B6. Take nfpz-uhg-efsoumg and prescription medicines only as told by [...] provider. Document Revised: 09/22/2022 Document Reviewed: 09/22/2022 [employer] Patient Education 2022 [employer]. Follow Up Care 05/29/2023 15:22:48 With:LESLIE JUNG PA-C, URL Address: [address] [address] When: Unknown [facility] 11-28-2023 Note - From: Sally Linda To: EU - Administrative; Sent: 11/28/2023 09:53:09 EDT Show up: 02/25/2024 09:52:00 EDT Subject: Ambulatory Reminder Due Date/Time: 11/24/2024 09:53:00 EDT Reminder/Recall Patient needs scheduled for a 1 yr f/u with MAGALYS and BEN with DA, due in 11/2024 [facility] 09-20-2023 Miscellaneous Notes [facility] Ortho called to say that they are out of network for Stacey's insurance. A referral form will be sent once she selects an orthopedic in-network documented in this encounter [facility] 09-20-2023 Telephone encounter Note [facility] Ortho called to say that they are out of network for Stacey's insurance. A referral form will be sent once she selects an orthopedic in-network [facility] 09-12-2023 History of Presen t illness Narrative [facility] [address] [place] [address] Patient: Stacey Sahu Sex: female : 1975 Age: 48 y.o. PCP: ESSIE RYAN, LAY-LENS BLOCKER 09/12/2023 Stacey Sahu is here for a(n) [...] patches min: NSAIDS, ice/heat, accupuncture, inj at [facility] Mod relief: Narcotics Sign: Steroid inj by Ortho) for the symptoms. The treatment provided moderate relief. The effect of pain on patient's ADLS: Moderate Impairment. Past Medical History: Diagnosis Date Arthritis Bipolar disorder ([facility]) Chronic pain disorder Crohn's colitis ([facility]) Depression GERD (gastroesophageal reflux disease) H/O methicillin resistant Staphylococcus aureus infection Hyperlipidemia Joint pain Pleurisy Pulmonary hypertension ([facility]) Pulmonary hypertension ([facility]) Sleep apnea cpap Past Surgical History: Procedure Laterality Date COLON SURGERY part of bowel removed d/t crohns dx HYSTERECTOMY 2017 INJECTION BURSA LARGE JOINT Right Hip Right 09/01/2023 Performed by Pj Gannon MD at [facility] INJECTION SPINE TRANSFORAMINAL Right L 5,1 Nroot Right 05/26/2023 Performed by Pj Gannon MD at [facility] PA[facility] RELEASE DEQUERVAINS CONTRACTURE Right 10/17/2018 Performed by Dereck Bagley DO at [facility] THYROIDECTOMY, PARTIAL Allergies Allergen Reactions Penicillins [...] [facility] 09/12/23 0828 ADELA Metz 09/12/23 [id number] documented in this encounter [facility] 08-29-2023 Note Pt to f/U with pulmo nology for further evaluation and mangement- she states she has been unable to wear Cpap and would like to see about Inspire implant. [facility] 08-29-2023 Note Will increase lipito r to 40 mg daily for better lipid management and repeat Lipid level and LFT in 2-3 months [facility] 08-29-2023 Note Stable no concerning symptoms [facility] 08-29-2023 Note [facility]TP CARDIOLOGY PROGR ESS NOTE HPI: Stacey Sahu is a 48 y.o. female here for routine F/U HPI Pt presents today for known h/o Pulm HTN, HPL. Patient here for 10 mo follow up palpitations and pulmonary hypertension. She had echo and wore 7 day Holter monitor back in October 2022 prior to thyroid surgery. C/o intermittent chest discomfort 2-3 times a week, lasting a few minutes at a time. Palpitations aren't as bad she says. Denies SOB, lightheadedness/syncope, and LE edema. Had routine labs in Feb 2023 and PCP started her on atorvastatin. States she has tried to wear Cpap for NIRMALA and is just unable to wear it r/t pressures and clausterphobic. Review of Systems Cardiovascular: Positive for chest pain ( discomfort , intermittent) and palpitations ( not as bad ). All other systems reviewed and are negative. Previous HPI per M Fer [employer] C[employer]TER [employer] SC[employer]ER HPI Stacey Sahu is a 47 y.o. [...] denies ETOH: denies Recreational drug use: denies ------- Fup ; hx PH on Letairis tx doing well. (remote use of Adipex 2011) Preserved LVEF - RVSP 27mmHg Normal cors (F 03/2012) Exercise stress 2014- no ischemia NIRMALA ; using Cpap 4.5 hr night Visit Vitals BP 126/84 (BP Location: Left arm, Patient Position: Sitting) Pulse 81 Ht 1.524 m (5') Wt 83.9 kg (185 lb) SpO2 98% BMI 36.13 kg/m??? Smoking Status Never BSA 1.88 m??? Allergies Allergen Reactions Penicillins Other and Unknown As a child Medications: Current Outpatient Medications on File Prior to Visit Medication Sig Dispense Refill busPIRone (Buspar) 7.5 mg tablet Take 7.5 mg by mouth twice a day. cetirizine (ZyrTEC) 10 mg tablet Take 10 mg by mouth in the morning. omeprazole (PriLOSEC) [address] capsule Take 40 mg by mouth in the morning. [DISCONTINUED] atorvastatin (Lipitor) 10 mg tablet Take 10 mg by mouth in the morning. No current facility-administered medications on file prior to visit. Physical Exam: Constitutional: Appearance: Normal appearance. Without apparent distress, obese HENT: Head: Normocephalic and atraumatic. Nose: Nose normal. Mouth/Throat: Mouth: Mucous membranes are moist. Eyes: Extraocular Movements: Extraocular movements intact. Conjunctiva/sclera: Conjunctivae normal. Neck: Vascular: No JVD. Cardiovascular: Rate and Rhythm: Normal rate and regular rhythm. Pulses: Dorsalis pedis pulses are 3 on the right side and 3on the left side. Posterior tibial pulses are 3 on the right side and 3 on the left side. Heart sounds: Normal heart sounds, S1 normal and S2 normal. Pulmonary: Effort: Pulmonary effort is normal. Breath sounds: Normal breath sounds. Abdominal: General: Bowel sounds are normal. Palpations: Abdomen is soft. Musculoskeletal: General: Normal range of motion. Cervical back: Normal range of motion. Right lower leg: No edema. Left lower leg: No edema. Skin: General: Skin is warm and dry. Capillary Refill: Capillary refill takes less than 2 seconds. Neurological: General: No focal deficit present. Mental Status: She is alert and oriented to person, place, and time. Psychiatric: Mood and Affect: Mood normal. Behavior: Behavior normal. Thought Content: Thought content normal. Judgment: Judgment normal. Labs: 03/25/23 CBC normal NA 140, K+ 4.1 - normal BUN 15, CR 0.79, GRF> 60- normal Liver function normal Chol 237, Trig 120, HDL 59, LDL 154- elevated 11/23/18 Chol 242, Trig 175, HDL 44, LDL 163 TSH normal Last lab values have been reviewed CV Testing Event monitor 11/23/22 TTE EKG (11/08/2022): sinus rhythm ECHO (2016) Global left ventricular systolic function is normal (Visually estimated EF 55%). No regional wall motion abnormality. Normal diastolic function. Normal right ventricular systolic function. Doppler studies suggest normal right sided pressures. No pericardial effusion. No significant valvular abnormalities EKG (2016) Normal sinus rhythm Nonspecific T wave abnormality Abnormal ECG When compared with ECG of 05/19/2015 Nonspecific T wave abnormality Anterolateral leads 05/13/2016 Echo - [facility] Normal LV systolic function normal RV size/function No valve abnormality. RVSP 27mmHg 06/01/15 Echo Global left ventricular systolic functio (more content not included)... [facility] 08-29-2023 Note Patient here for 10 mo follow up palpitations and pulmonary hypertension. She had echo and wore 7 day Holter monitor back in October 2022 prior to thyroid surgery. C/o intermittent chest discomfort 2-3 times a week, lasting a few minutes at a time. Palpitations aren't as bad she says. Denies SOB, lightheadedness/syncope, and LE edema. Had routine labs in Feb 2023 and PCP started her on atorvastatin. Review of Systems Cardiovascular: Positive for chest pain ( discomfort , intermittent) and palpitations ( not as bad ). All other systems reviewed and are negative. [facility] 07-11-2023 Evaluation note Encounter Date Diagnosis [...] treatment plan. Patient left in stable condition [facility] Other 01-03-2024 History of Present illness Narrative* vEans Anderson PA-C - 06/28/2023 10:45 AM EST [facility] [address] [place] [address] Patient: Stacey Sahu Sex: female : 1975 [...] min: NSAIDS, ice /heat, accupuncture, inj at [facility] Mod relief: Narcotics Sign: Steroid inj by Ortho) for the symptoms. The treatment provided moderate relief. The effect of pain on patient's ADLS: Minimal Impairment. Past Medical History: Diagnosis Date Arthritis Bipolar disorder ([facility]) Chronic pain disorder Crohn's colitis ([facility]) Depression GERD (gastroesophageal reflux disease) H/O methicillin resistant Staphylococcus aureus infection Hyperlipidemia Joint pain Pleurisy Pulmonary hypertension ([facility]) Pulmonary hypertension ([facility]) Sleep apnea cpap Past Surgical History: Procedure Laterality Date COLON SURGERY part of bowel removed d/t crohns dx HYSTERECTOMY 2017 INJECTION SPINE TRANSFORAMINAL Right L 5,1 Nroot Right 05/26/2023 Performed by Pj Gannon MD at [facility] RELEASE DEQUERVAINS CONTRACTURE Right 10/17/2018 Performed by Dereck Bagley DO at [facility] THYROIDECTOMY, PARTIAL Allergies Allergen Reactions Penicillins [...] Anderson PA-C 06/28/23 1229 [facility] Hospital Discharge instructions Patient Education 05/29/2023 15:17:27 Kidney Stones, Tfhw-qs-Zkjs Kidney Stones Kidney stones are rock-like masses [...] Follow these instructions at home: Medicines Take bvfz-gcd-kdpgulx and prescription medicines only as told by [...] provider. Document Revised: 02/14/2022 Document Reviewed: 02/14/2022 [employer] Patient Education 2022 [employer]. Follow Up Care 11/08/2022 13:29:10 With:JOSE FELIX, Jose Palafox, URL Address: [facility] [address] , [place] [phone] When: Unknown Comments:4 mos w/ metabolic w/u [facility] Jatinder 02-09-2023 NoteCONSULTATION CONSULTATION DATE: 08/04/2022 HISTORY OF PRESENT [...] medications in three months, unless otherwise indicated.[facility] [id number] NotePROCEDURE: XR HIP RT 2 3V WO [...] authenticated by: PREET RODRIGEZ Date: 2022-07-07 15:33[facility] [id number] NoteCONSULTATION CONSULTATION DATE: 07/07/2022 HISTORY OF PRESENT [...] procedure, and she agrees to move forward.[facility] [id number] NoteCONSULTATION CONSULTATION DATE: 06/09/2022 HISTORY OF PRESENT [...] will re-evaluate with application of the diclofenac.[facility] 04-26-2022 Hospital Discharge instructions Patient Education [...] 06/12/2006 Document Revised: 03/01/2019 Document Reviewed: 05/12/2017 [employer] Patient Education 2020 [employer]. 04/26/2022 12:17:47 Hematuria, Adult Hematuria, Adult Hematuria [...] Follow these instructions at home: Medicines Take whpo-oek-ctummxm and prescription medicines only as told by [...] or the blood stops without treatment. Take synv-eqc-lhiojna and prescription medicines only as told by your health care provider. Drink enough fluid to keep your urine clear or pale yellow. This information is not intended to replace advice given to you by your health care provider. Make sure you discuss any questions you have with your health care provider. Document Released: 06/12/2006 Document Revised: 11/06/2019 Document Reviewed: 07/15/2017 [employer] Patient Education 2020 [employer] Follow Up Care 04/22/2022 08:39:58 With:JOSE FELIX, Jose Palafox, URL Address: [address] [place] [phone] When:Within 6 Month(s) Comments:6 mo fu with MAGALYS [facility] 10-04-2022 NoteCONSULTATION PROCEDURE DATE: 03/29/2022 PREOPERATIVE [...] Will be followed up in the office.[facility] [id number] NoteCONSULTATION CONSULTATION DATE: 03/22/2022 CHIEF COMPLAINT: Right [...] up subsequent to that. CC: Essie Ryan [facility]09-13-2022 Hospital Discharge instructions Patient Education 03/08/2022 08:47:22 [...] [facility] [address], [place] [address]- Business (1) When: Unknown Comments:Office will call to schedule follow up [facility] History of Present illness Narrative* Shiraz Roy, - 02/21/2022 12:46 PM EDT Images from the original note were not included. [facility] [place] [facility] Medical Spine Initial Exam SUBJECTIVE HISTORY OF PRESENT ILLNESS: Stacey Sahu is a 46 year old female who presents with a chief complaint of low back and leg pain and is seen in consultation requested by Dr. Jorge Luis Page for an opinion regarding above complaints. My [...] gel - no benefit Therapies PT at [facility] in [place] in June 2021 - 2 times per week for 1 month, exercises, TENS, ice - no relief Ice/heat Prior spine/MSK interventions: -12/31/21 Dr. Page: R GTB CSI - minimal relief for 1 day. -06/2021 Possibly a R GTB CSI at a [facility] facility by [employer] - 45% relief for 2 days Prior spine surgery: Denies Previously treated by: -Ortho Dr. Page, last 01/17/22, refer to Spine. 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 SIGNATURE: Shiraz Roy DO PATIENT NAME: Stacey Sahu DATE: February 21, 2022 TIME: 12:46 PM documented in [facility] History of Present illness Narrative* Jorge Luis Page DO - 01/17/2022 3:42 PM EDT SERVICE DATE: January 17, 2022 PCP: Essie Ryan, NIURKA, LENS BLOCKER Patient was self-referred. Subjective Patient ID: Stacey [...] x 4 Crohn's disease without complication (HCC) [id number] Pulmonary Htn (Hcc) Obese Nirmala (Obstructive Sleep [...] (primary encounter diagnosis) Plan: CONSULT TO SPINE [facility] (M51.27) Lumbago-sciatica due to displacement of lumbar [...] plans as outlined in this note. SIGNATURE: Jorge Luis Page DO PATIENT NAME: Stacey Sahu DATE: January 17, 2022 TIME: 3:46 PM documented in this encounter[facility] History of Present illness Narrative* Jorge Luis Page DO - 12/31/2021 12:54 PM EDT Associated Order(s): Large Joint Arthro/Inj: R greater trochanteric bursa Post-Procedure Diagnose(s): Trochanteric bursitis of right hip SERVICE DATE: December 31, 2021 PCP: Essie Ryan, NIURKA, LENS BLOCKER Patient was self-referred. Subjective Patient ID: Stacey [...] x 4 Crohn's disease without complication (HCC) [id number] Pulmonary Htn (Hcc) Obese Nirmala (Obstructive Sleep [...] trochanteric bursa Informed Consent Consent Obtained: Verbal [place] Protocol A moment to CARE was completed. [...] images are attached to the encounter. SIGNATURE: Jorge Luis Page DO PATIENT NAME: Stacey Sahu DATE: December 31, 2021 TIME: 1:09 PM PAGER/CONTACT #: Jorge Luis Page DO FOLLOW-UP: Return if symptoms worsen or fail to improve. I reviewed the information obtained and documented by the me. I examined the patient and evaluated all available films and pertinent documents. We discussed the case and I agree with the plans as outlined in this note. SIGNATURE: Jorge Luis Javy DO Kaylee PATIENT NAME: Stcaey Sahu DATE: December 31, 2021 TIME: 1:05 PM documented in this encounterProm[facility] Evaluation note* Encounter Date Diagnosis [...] refer her to Dr. Christian with the [facility]. [facility] Other 05-25-2022 Evaluation note* Encounter Date Diagnosis [...] I will see her with those results. [facility] Other 06-21-2021 History of Past illness Narrative* Problem Noted Date Resolved Date Generalized abdominal pain 12/14/202012/16 documented as of this encounter (statuses as of 12/31/2021) [facility] History of Past illness Narrative* Problem Noted Date Resolved Date Generalized abdominal pain 12/14/202012/16 documented as of this encounter (statuses as of 01/17/2022) [facility] History of Past illness Narrative* Problem Noted Date Resolved Date Generalized abdominal pain 12/14/202012/16 documented as of this encounter (statuses as of 03/13/2022) [facility] No data available for this section [facility] Future Appointments Appointment Date:10/24/2022 11:30:00 AM Scheduled Provider:Jose GARCIA MD Location:[facility] Appointment Type:URO Office Visit [facility] Evaluation + Plan note Future Appointments Appointment Date:05/29/2023 02:30:00 PM Scheduled Provider:[facility] GARCIA [facility] Office Visit Future Scheduled Tests Laboratory* Calprotectin, Fecal 11/24/22 * CBC w/ Auto Diff 11/24/22 * Comprehensive Metabolic Panel 11/24/22 * C-Reactive Protein 11/24/22 Radiology* CT Abdomen/Pelvis w/contrast (enterography) 11/24/22 [facility] Evaluation + Plan note Future Appointments Appointment Date:05/29/2023 02:30:00 PM Scheduled Provider:Jose GARCIA MD Location:[facility] Appointment Type:URO Office Visit Future Scheduled Tests Laboratory* Calprotectin, Fecal 11/24/22 * CBC w/ Auto Diff 11/24/22 * Comprehensive Metabolic Panel 11/24/22 * C-Reactive Protein 11/24/22 [facility] Future Appointments Appointment Date:02/02/2023 01:00:00 PM Scheduled Provider:Ignacia KHAN MD Location:[facility] Appointment Type:[facility] Follow Up Appointment Date:05/29/2023 02:30:00 PM Scheduled Provider:Jose GARCIA MD Location:[facility] Appointment Type:URO Office Visit Future Scheduled Tests Laboratory* Calprotectin, Fecal 11/24/22 [facility] Future Appointments Appointment Date:05/29/2023 02:30:00 PM Scheduled Provider:Jose GARCIA MD Location:[facility] Appointment Type:URO Office Visit Diagnostic Tests Pending * Calprotectin, Fecal 02/02/23 [facility] Future Appointments Appointment Date:10/02/2023 03:00:00 PM Scheduled Provider:Jose GARCIA MD Location:[facility] Appointment Type:URO Office Visit [facility] evaluation note* Diagnosis Trochanteric bursitis of right hip- Primary Enthesopathy of hip region documented in this encounter [facility] 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 documented in this encounter [facility] note* Diagnosis Tendinopathy of right gluteal region- Primary Trochanteric bursitis of right hip Enthesopathy of hip region Chronic bilateral low back pain without sciatica Lumbar spondylosis Lumbosacral spondylosis without myelopathy documented in this encounter [facility]* Diagnosis Lumbar radiculopathy- Primary Thoracic or lumbosacral neuritis or radiculitis, unspecified [facility] Diagnosis Chronic right hip pain- Primary [facility]* Diagnosis Exhausted vascular access Other specified circulatory system disorders Crohn's disease of intestine (HCC) Regional enteritis of unspecified site Enterolith of small intestine (HCC) NIRMALA (obstructive sleep apnea) Obstructive sleep apnea (adult) (pediatric) GERD (gastroesophageal reflux disease) Esophageal reflux Bipolar disease, chronic (HCC) Bipolar disorder, unspecified Generalized abdominal pain Abdominal pain, generalized Other hyperlipidemia Pain of right hip- Primary Primary osteoarthritis of right hip Primary localized osteoarthrosis, pelvic region and thigh documented in this encounter [facility] note* Diagnosis Exhausted vascular access Other specified circulatory system disorders Crohn's disease of intestine (HCC) Regional enteritis of unspecified site Enterolith of small intestine (HCC) NIRMALA (obstructive sleep apnea) Obstructive sleep apnea (adult) (pediatric) GERD (gastroesophageal reflux disease) Esophageal reflux Bipolar disease, chronic (HCC) Bipolar disorder, unspecified Generalized abdominal pain Abdominal pain, generalized Other hyperlipidemia Pain in right hip Pain in joint, pelvic region and thigh documented in this encounter [facility] general Narrative - Reported* Type Description Date Medical History acid reflux Surgical History biopsy of intestines Surgical History hysterectomy [facility] Other Hospital Discharge instructions No data available for this section [facility] InstructionsNot on filedocumented in this encounter [facility]Not on filedocumented in this encounter [facility]ructionsNot on filedocumented in this encounter [facility] No data available for this section [facility] referral (narrative)* Consultation (Routine) - Pending Review Specialty Diagnoses / Procedures Referred By Wan gamboa Referred To Contact Orthopedic Surgery Diagnoses Chronic right hip pain Imani Chan, SOLE CUTTER-LENS BLOCKER [address] [place] [address] Bang Cuellar MD [address] [place] [address] Referral ID Status Reason Start Date Expiration Date Visits Requested Visits Authorized [id number] Pending Review Specialty Services Required 09/12/2023 09/11/2024 1 1 [facility] (n[facility]ative)* Diagnostic Procedure Only (Routine) - Closed Specialty Diagnoses / Procedures Referred By Contac t Referred To Contact XR IMAGING Diagnoses Pain in right hip Procedures XR HIP GENERAL 3V PELV/AP/LAT RIGHT RADEX HIP UNILATERAL WITH PELVIS 2-3 VIEWS Mayito Gifford PA-C [address] [place] [address] Xr Imaging [place] [address] Referral ID Status Reason Start Date Expiration Date V isits Requested Visits Authorized [id number] Closed Auto-Generate d Referral 03/15/2024 04/14/2025 1 1 [facility] Summary Purpose Family History No [...] FoundDocuments on File Type Date Recorded Patient District Home Economics Agent Expl anation Advance Directive(s) 12/12/2020 8:14 PM Documents on File Type Date Recorded Patient District Home Economics Agent Expl anation Advance Directive(s) 12/12/2020 8:14 PM Reason for Referral Specialty Diagnoses / Procedures Referred By Contac t Referred To Contact MR IMAGING Diagnoses Pain of right hip Procedures MRI HIP WO IVCON RIGHT MRI ANY JT LOWER EXTREM W/O CONTRAST Lois Le MD [address] [place] [id number] Mr Imaging [facility] Referral ID Status Reason Start Date Expiration Date Visits Requested Visits Authorized [id number] New Request Auto-Generat ed Referral 03/19/2024 04/18/2025 1 1 Specialty Diagnoses / Procedures Referred By Contac t Referred To Contact Diagnoses Trochanteric bursitis of right hip Tendinopathy of right gluteal region Chronic bilateral low back pain without sciatica Lumbar spondylosis Procedures CONSULT TO CHIROPRACTOR OFFICE/OUTPATIENT [facility] 60-74 MINUTES Shiraz Roy, DO [address] [place] [address] Referral ID Status Reason Start Date Expiration Date Visits Requested Visits Authorized [id number] Pending Review PCP Requested Referral 02/21/2022 02/21/2023 1 1 Specialty Diagnoses / Procedures Referred By Contac t Referred To Contact Sports Medicine Diagnoses Trochanteric bursitis of right hip Tendinopathy of right gluteal region Procedures CONSULT TO SPORTS MEDICINE OFFICE/OUTPATIENT [facility] 60-74 MINUTES Shiraz Roy, DO [address] [place] [address] Referral ID Status Reason Start Date Expiration Date Visits Requested Visits Authorized [id number] Authorized PCP Requested Referral 02/21/2022 02/21/2023 1 1 Specialty Diagnoses / Procedures Referred By Contac t Referred To Contact [facility] [place] Diagnoses Trochanteric bursitis of right hip Lumbago-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 Procedures CONSULT TO [facility] OFFICE/OUTPATIENT [facility] 60-74 MINUTES Jorge Luis Page, DO [facility] [address] [place] [address] Referral ID Status Reason Start Date Expiration Date Visits Requested Visits Authorized [id number] Authorized PCP Requested Referral 01/17/2022 01/17/2023 1 1 Reason evaluate and treat. Gluteal tendon tear vs greater trochanteric bursitis Please refer to Bang Christian MD, Orthopaedic Surgery, [facility] Diagnosis 1 Trochanteric bursiti s, right hip (M70.61) Referral Organization [facility] Referring Provider First Name Alexis Referring Provider Last Name Dany ARDON Referring Provider Specialty Orthopedic Surgery Referred Organization [facility] Referred Address [address],[place], [place],[address] Referred Provider Specialty ORTHOPEDIC S URGEON Referral [...] section and content) DATE CREATED AUTHOR 12/19/2017 [facility] DATE CREATED AUTHOR AUTHOR'S ORGANIZ ATION 12/08/2021 [facility] DATE CREATED AUTHOR AUTHOR'S ORGANIZ ATION 12/04/2022 [facility] DATE CREATED AUTHOR AUTHOR'S ORGANIZ ATION 09/12/2023 [facility] DATE CREATED AUTHOR AUTHOR'S ORGANIZ ATION 11/29/2023 [facility] DATE CREATED AUTHOR AUTHOR'S ORGANIZ ATION 03/01/2024 [facility] dical Specialists [facility] DATE CREATED AUTHOR AUTHOR'S ORGANIZ ATION 03/10/2024 [facility] DATE CREATED AUTHOR AUTHOR'S ORGANIZ ATION 03/23/2024 [facility] REASON FOR VISIT (unrecogniz ed section and content) Reason Comments New Specialty Diagnoses / Procedures Referred By Contac t Referred To Contact Orthopedics / ORTHOPAEDIC SURGERY Diagnoses Greater Trochanteric Bursitis right hip vs Gluteal Tendon tear *OUTSIDE IMG PT TO BRING Procedures LANA NEW NO XRAY Alexis Saenz II, MD [address] [place] [address] Jorge Luis Page, [address] [address] Referral ID Status Reason Start Date Expiration Date Visits Requested Visits Authorized [id number] Authorized Financial Clearance Not Required 12/24/2021 01/23/2022 99 99 Reason Comments Follow Up Reason Comments New Patient Evaluation Lower back pain/R ight side sciatica Specialty Diagnoses / Procedures Referred By Contac t Referred To Contact [facility] [place] Diagnoses Trochanteric bursitis of right hip Lumbago-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 Procedures CONSULT TO [facility] OFFICE/OUTPATIENT NEW HIGH MDM 60-74 MINUTES Jorge Luis Page, [address] [place] [address] Referral ID Status Reason Start Date Expiration Date V isits Requested Visits Authorized [id number] Closed PCP Requested Referral 01/17/2022 01/17/2023 1 1 Reason Comments Hip Pain Reason Comments Hip Pain Reason Comments New Surgical consult Reason Comments Radio Gen RMP Specialty Diagnoses / Procedures Referred By Contac t Referred To Contact XR IMAGING Diagnoses Pain in right hip Procedures XR HIP GENERAL 3V PELV/AP/LAT RIGHT RADEX HIP UNILATERAL WITH PELVIS 2-3 VIEWS Mayito Gifford PA-C [address] [place] [address] [place] [address] Referral ID Status Reason Start Date Expiration Date V isits Requested Visits Authorized [id number] Closed Auto-Generate d Referral 03/15/2024 04/14/2025 1 1 Source Comments (unrecognize d section and content) In the event this informatio n is protected by the Federal Confidentiality of Alcohol and Drug Abuse Patient Records regulations: The Federal rules restrict any use of the information to criminally investigate or prosecute any alcohol or drug abuse patient.[facility] HospitalIn the event this information is protected by the Federal Confidentiality of Alcohol and Drug Abuse Patient Records regulations: The Federal rules restrict any use of the information to criminally investigate or prosecute any alcohol or drug abuse patient.[facility] HospitalIn the event this information is protected by the Federal Confidentiality of Alcohol and Drug Abuse Patient Records regulations: The Federal rules restrict any use of the information to criminally investigate or prosecute any alcohol or drug abuse patient.[facility] HospitalIn the event this information is protected by the Federal Confidentiality of Alcohol and Drug Abuse Patient Records regulations: The Federal rules restrict any use of the information to criminally investigate or prosecute any alcohol or drug abuse patient.[facility] HospitalIn the event this information is protected by the Federal Confidentiality of Alcohol and Drug Abuse Patient Records regulations: The Federal rules restrict any use of the information to criminally investigate or prosecute any alcohol or drug abuse patient.[facility] HospitalIn the event this information is protected by the Federal Confidentiality of Alcohol and Drug Abuse Patient Records regulations: The Federal rules restrict any use of the information to criminally investigate or prosecute any alcohol or drug abuse patient.[facility] Care Teams (unrecognized sec tion and content) Fabrication Inspector Relationship Specialty Start Date End Date Essie Ryan CNP PCP - General Family Practice 07/22/16 Adán Torres Obstetrics 07/22/16 Alexis Saenz II, MD [address] [place] [address] Referring Orthopedics 12/13/21 Fabrication Inspector Relationship Specialty Start Date End Date Essie Ryan CNP PCP - General Family Practice 07/22/16 Adán Torres DO Obstetrics 07/22/16 Alexis Saenz II, MD [address] [place] [address] Referring Orthopedics 12/13/21 Fabrication Inspector Relationship Specialty Start Date End Date Essie Ryan LENS BLOCKER PCP - General Family Practice 07/22/16 Adán Torres DO Obstetrics 07/22/16 Alexis Saenz II, MD [address] [place] [address] Referring Orthopedics 12/13/21 Fabrication Inspector Relationship Specialty Start Date End Date Essie Ryan APRN-[facility] [address] [place] [address] PCP - General Nurse Practitioner 10/03/18 Fabrication Inspector Relationship Specialty Start Date End Date Essie Ryan SOLE CUTTER-[facility] [address] [place] [address] PCP - General Nurse Practitioner 10/03/18 Fabrication Inspector Relationship Specialty Start Date End Date Essie Ryan [facility]TER[facility] [address] [place] [phone] PCP - General Nurse Practitioner 10/03/18 Fabrication Inspector Relationship Specialty Start Date End Date Essie Ryan CNP PCP - General Family Medicine 07/22/16 Adán Torres DO Obstetrics 07/22/16 Alexis Saenz II, MD [address] [place] [address] Referring Orthopedics 12/13/21 nAgel Delgado DO [address] [place] [address] Referring Orthopedics 03/08/24 Fabrication Inspector Relationship Specialty Start Date End Date Essie Ryan CNP PCP - General Family Medicine 07/22/16 Adán Torres DO Obstetrics 07/22/16 Alexis Saenz II, MD [address] [place] [address] Referring Orthopedics 12/13/21 Angel Delgado DO [address] [place] [address] Referring Orthopedics 03/08/24 Fabrication Inspector Relationship Specialty Start Date End Date Essie Ryan CNP PCP - General Family Medicine 07/22/16 Adán Torres DO Obstetrics 07/22/16 Alexis Saenz II, MD [address] [place] [address] Referring Orthopedics 12/13/21 Angel Delgado DO [address] [place] [place] [address] Referring Orthopedics 03/08/24 FOR RECORDS PERTAINING TO PATIENTS WHO ARE [...] BE BASED ON THE PRIMARY CLINICAL RECORDS. [facility]. provides no warranty or guarantee of the accuracy or completeness of information in this document.
== END 2024-03-26 13:49 | disposition home or self-care (01) ==
LOC: MRI 13:48
PROVIDERS: PCP Nurse Practitioner
DX: M25.551 Pain in right hip (principal); M76.01 Gluteal tendinitis, right hip; M46.1 Sacroiliitis, not elsewhere classified
CPT/HCPCS: 73721

== ENCOUNTER 2024-06-08 16:44 | Emergency (ER) | payer OTHER, SELFPAY ==
--- OUTSIDE RECORDS SUMMARY | 2024-06-08 16:55 | XMS_ITS | CCD ---
Author Organization [facility] Care Team Providers Care Mortgage Loan Reviewer Name Role Phone PHYSICIAN, DEFAULT Unavailable Unavailable PHYSICIAN, DEFAULT Unavailable Unavailable AICHHOLZ, ESSIE Unavailable Unavailable PHYSICIAN, DEFAULT Unavailable Unavailable PHYSICIAN, DEFAULT Unavailable Unavailable AICHHOLZ, ESSIE Unavailable Unavailable PHYSICIAN, DEFAULT Unavailable Unavailable PHYSICIAN, DEFAULT Unavailable Unavailable AICHHOLZ, ESSIE Unavailable Unavailable Alexis Saenz II Unavailable AicEssie neff CNP Primary Care Provider [phone] Adán Torres Unavailable [phone] Dany ARDON MD, Robert M Unavailable Adán Torres DO Unavailable ESSIE RYAN Primary Care Physician Aicholz Essie BAH Primary Care Provider [phone] Adán Torres DO Unavailable Dany ARDON MD, Robert M Unavailable CAN MONROE Attending Unavailable CAN MONROE Consulting Unavailable AICHHOLZ, TELEVISION TECHNICIAN ESSIE Primary Care Unavailable CAN [place]ROE Admitting Unavailable ANDREW ., DR MARKO Stafford Admitting Unavailable ANDREW ., DR MARKO Stafford Attending Unavailable AICHHOLZ, TELEVISION TECHNICIAN ESSIE Primary Care Unavailable ARTURO VANEGAS Consulting Unavailable ANDREW ., DR MARKO Stafford Attending Unavailable MORALES ., DR MARKO Stafford Consulting Unavailable AICHHOLZ, TELEVISION TECHNICIAN ESSIE Primary Care Unavailable ANDREW ., DR MARKO Stafford Admitting Unavailable SHARONA JIMENEZ Attending Unavailable SHARONA JIMENEZ Consulting Unavailable SHARONA JIMENEZ Admitting Unavailable AICHHOLZ, TELEVISION TECHNICIAN ESSIE Primary Care Unavailable PAULETTE PHIPPS Unavailable [facility], [facility] Primary Care Unavailable GARCIA ., DR BAILEY Attending Unavailable GARCIA ., DR BAILEY Consulting Unavailable GARCIA ., DR BAILEY Admitting Unavailable WEST, DR PAULETTE León Consulting Unavailable MORALES ., DR MARKO Stafford Admitting Unavailable MORALES ., DR MARKO Stafford Attending Unavailable MORALES ., DR MARKO Stafford Consulting Unavailable [facility] Primary Care Unavailable DELANEY ., ARTURO Consulting Unavailable MORALES ., DR MARKO Stafford Admitting Unavailable MORALES ., DR MARKO Stafford Attending Unavailable AICHOLZ, [facility] Primary Care Unavailable YOBANY ., DR RASMUSSEN Attending Unavailable AICHOLZ, [facility] Primary Care Unavailable YOBANY ., DR RASMUSSEN Admitting Unavailable WEST, DR PAULETTE León Consulting Unavailable YOBANY ., DR RASMUSSEN Consulting Unavailable [facility], [facility] Primary Care Unavailable GARCIA ., DR BAILEY Admitting Unavailable GARCIA ., DR BAILEY Attending Unavailable GARCIA ., DR BAILEY Consulting Unavailable ZIEBER, DR PREET Palafox Consulting Unavailable TIMMIS, DR RED Attending Unavailable TIMMIS, DR RED Consulting Unavailable TIMMIS, DR RED Admitting Unavailable AICHHOLZ, [facility] Primary Care Unavailable ZIEBER, DR PREET Palafox Consulting Unavailable TIMMIS, DR RED Attending Unavailable TIMMIS, DR RED Consulting Unavailable TIMMIS, DR RED Admitting Unavailable AICHOLZ, [facility] Primary Care Unavailable ZIEBER, DR PREET Palafox Consulting Unavailable TIMMIS, DR RED Attending Unavailable TIMMIS, DR RED Consulting Unavailable AICHOLZ, [facility] Primary Care Unavailable TIMMIS, DR RED Admitting Unavailable WEST, DR PAULETTE León Consulting Unavailable AICHOLZ, [facility] Primary Care Unavailable GARCIA ., DR BAILEY Attending Unavailable GARCIA ., DR BAILEY Consulting Unavailable GARCIA ., DR BAILEY Admitting Unavailable ZIEBER, DR PREET Palafox Consulting Unavailable LAKSHMIPATHY ., NARENDRANMONA Attending Marleni vailable AICHHOLZ, [facility] Primary Care Unavailable LAKSHMIPATHY ., NARANTONIO Admitting Marleni vailable MORALES ., DR MARKO Stafford Admitting Unavailable MORALES ., DR MARKO Stafford Attending Unavailable MORALES ., DR MARKO Stafford Consulting Unavailable AICHOLZ, [facility] Primary Care Unavailable DELANEY ., ARTURO Consulting Unavailable AICHHOLZ, TELEVISION TECHNICIAN ESSIE Primary Care Unavailable WEST, DR PAULETTE León Consulting Unavailable GARCIA ., DR BAILEY Attending Unavailable GARCIA ., DR BAILEY Admitting Unavailable AICHHOLZ, TELEVISION TECHNICIAN ESSIE Consulting Unavailable YOBANY ., DR RASMUSSEN Attending Unavailable YOBANY ., DR RASMUSSEN Consulting Unavailable AICHHOLZ, TELEVISION TECHNICIAN ESSIE Primary Care Unavailable YOBANY ., DR RASMUSSEN Admitting Unavailable AICHHOLZ, TELEVISION TECHNICIAN ESSIE Primary Care Unavailable AICHHOLZ, TELEVISION TECHNICIAN ESSIE Attending Unavailable AICHHOLZ, TELEVISION TECHNICIAN ESSIE Consulting Unavailable AICHHOLZ, TELEVISION TECHNICIAN ESSIE Admitting Unavailable DELANEY ., ARTURO Admitting Unavailable DELANEY ., ARTURO Attending Unavailable AICHHOLZ, TELEVISION TECHNICIAN ESSIE Primary Care Unavailable ZIEBER, DR PREET Palafox Consulting Unavailable DELANEY ., ARTURO Consulting Unavailable TIMMIS, DR RED Attending Unavailable TIMMIS, DR RED Consulting Unavailable TIMMIS, DR RED Admitting Unavailable AICHHOLZ, TELEVISION TECHNICIAN ESSIE Primary Care Unavailable ZIEBER, DR PREET Palafox Consulting Unavailable DIAB ., EDNA Attending Unavailable DIAB ., EDNA Admitting Unavailable MARKER ., DR JIMÉNEZ Consulting Unavailable AICHHOLZ, TELEVISION TECHNICIAN ESSIE Primary Care Unavailable DIAB ., EDNA Consulting Unavailable OWOYELE, MISTY Consulting Unavailable AICHHOLZ, TELEVISION TECHNICIAN ESSIE Primary Care Unavailable AICHHOLZ, TELEVISION TECHNICIAN ESSIE Attending Unavailable AICHHOLZ, TELEVISION TECHNICIAN ESSIE Consulting Unavailable AICHHOLZ, TELEVISION TECHNICIAN ESSIE Admitting Unavailable ZIEBER, DR PREET Palafox Consulting Unavailable MORALES ., DR MARKO Stafford Attending Unavailable MORALES ., DR MARKO Stafford Admitting Unavailable AICHHOLZ, TELEVISION TECHNICIAN ESSIE Primary Care Unavailable MIS, DR MCCARTHY Referring Unavailable JOSE ., DR BAILEY Consulting Unavailable MORALES ., DR MARKO Stafford Consulting Unavailable Aichholz HANDBAG FRAMER-TELEVISION TECHNICIAN, Essie J Primary Care Provider Juliana Block [...] Beth Attending Unavailable Jose GARCIA Attending Unavailable ANGELICALESLIE Attending Unavailable SALAM, Beth Admitting Unavailable SALAM, Beth Attending Unavailable SALAM, Beth Attending Unavailable SALAM, Beth Referring Unavailable SALAM, Beth Admitting Unavailable SALAM, Beth Admitting Unavailable SALAM, Beth Attending Unavailable SRAVANI, TINO Attending Unavailable SRAVANI, TINO Attending Unavailable TRINH EDUARDO Attending Unavailable SRAVANITINO Referring Unavailable Aichholz NIURKA, Essie Geiger Primary Care Provider Adán Torres DO Unavailable Dany ARDON MD, Alexis Cummins Unavailable Angel Delgado DO Unavailable Lakshmi FELIX, Yuriy Primary Care Provider Aichholz SHIPPING AND RECEIVING ASSOCIATE, Essie Unavailable Aichholz SHIPPING AND RECEIVING ASSOCIATE, Essie Unavailable AICHHOLZ, ESSIE Attending Unavailable TIMMISDANIELLENEDA H Attending Unavailable AICHHOLZ, ESSIE Attending Unavailable MARY DANIELS Attending Unavailable AICHHOLZ, ESSIE Referring Unavailable TIMMIS, NEDA H Attending Unavailable AICHHOLZ, ESSIE Referring Unavailable AICHHOLZ, ESSIE Attending Unavailable SHAIKH WHITE Attending Unavailable JANET MODI Attending Unavailable SHAIKH WHITE Attending Unavailable JAMIE RANDHAWA Attending Unavailable ANGEL DELGADO Referring Unavailable JAMIE RANDHAWA Attending Unavailable ANGEL DELGADO Referring Unavailable KOLE FULTON Attending Unavailable ANGEL DELGADO Referring Unavailable JOSIAS LOPEZ Attending Unavailable KYLE MCNEIL Referring Unavailable TINO PEREZ Attending Unavailable KYLE MCNEIL Referring Unavailable COURTNEYBLEY, TINO Attending Unavailable EWA, KYLE L Referring Unavailable COURTNEYBLEY, TINO Attending Unavailable EWA, KYLE L Referring Unavailable JOSIAS LOPEZ Attending Unavailable EWA, KYLE L Referring Unavailable AICHHOLZ, ESSIE Attending Unavailable AICHHOLZ, ESSIE Attending Unavailable AICHHOLZ, ESSIE Attending Unavailable Aichholz LAY-Essie BAH Primary Care Provider AICHHOLZ, ESSIE J Referring Unavailable AICHHOLZ, ESSIE J Primary Care Unavailable JEFF ROSSI Admitting Unavailable ENID, JEFF Chavez Attending Unavailable AICHHOLZ, ESSIE J Primary Care Unavailable LAYNE HOGUE Attending Unavailable AICHHOLZ, ESSIE J Primary Care Unavailable ENID, JEFF Chavez Attending Unavailable AICHHOLZ, ESSIE J Referring Unavailable AICHHOLZ, ESSIE J Primary Care Unavailable JEFF ROSSI Attending Unavailable AICHHOLZ, ESSIE J Referring Unavailable AICHHOLZ, ESSIE J Primary Care Unavailable Yuriy Martins MD Primary Care Provider SHELBY, ESSIE FELY Primary Care Unavailable LOIS MCKEON Attending Unavailable AICHHOLZ, ESSIE FELY Primary Care Unavailable LOIS MCKEON Attending Unavailable MAYITO GIFFORD Referring Unavailable AICHHOLZ, ESSIE FELY Primary Care Unavailable AICHHOLZ, ESSIE FELY Primary Care Unavailable LOIS MCKEON Referring Unavailable AICHHOLZ, ESSIE FELY Primary Care Unavailable NEGRITA TEJEDA Referring Unavailable Allergies Allergy Classification Reported Allergen(s) Allergy Type Date of Onset Reaction(s) Facility (7 sources) Penicillins; Translations: [PENICILLINS] Drug allergy (disorder) 09-21-19 12 [facility] (3 sources) Penicillin V Drug Allergy Fever [facility] Other (18 sources) Penicillins Drug Allergy 07-27-19 17 Unknown [facility] (9 sources) History of - penicillin allergy (context-depend ent category); Translations: [H/O: penicillin allergy] Drug allergy [facility] (1 source) Penicillin Drug Allergy [facility] [employer] Other (6 sources) Penicillins Drug Intolerance 06-13-20 14 Other, Unknown [facility] Work Phone: Medications Current Medications Medication Drug Class(es) Dates Sig (Normalized) Sig (Original) acetaminophen 325 mg oral tablet (14 sources) Start: 09-22-2016 take 2 tablets by [...] mo uth every 6 hours as needed. ARIPiprazole 15 mg oral tablet (9 sources) Atypical Antipsychotic Start: 04-10-20 End: 05-10-20 take 1 tablet by mouth once daily ARIPiprazole (Abilify) 15 MG tablet Indications: Bipolar disorder, unspecified (CMS/HCC) Take 1 tablet (15 mg) by mouth Daily 30 tablet 1 04/10/2024 Active Start: 02-29-2024 End: 04-10-2024 take 1 tablet by mouth once daily ARIPiprazole (Abilify) 10 MG tablet Indications: Bipolar disorder, unspecified (CMS/HCC) Take 1 tablet (10 mg) by mouth Daily 30 tablet 1 02/29/2024 04/10/2024 Discontinued (Therapy completed) take 1 tablet by billie th once daily ARIPiprazole (ABILIFY) 30 mg tablet Take 1 tablet by mouth once daily. Active atorvastatin 80 mg oral tablet (20 sources) HMG-CoA Reductase Inhibitor Start: 03-06-2024 take 1 tablet by mouth in the morning atorvastatin (Lipitor) 80 MG tablet Take 80 mg by mouth in the morning. 03/06/2024 Active Start: 04-22-2023 take 1 tablet by billie th once daily atorvastatin (LIPITOR) 10 mg tablet Take 1 tablet (10 mg total) by mouth nightly. 04/22/2023 Active Start: 10-13-2020 End: 06-05-2024 take 1 tablet by mouth once daily atorvastatin (LIPITOR) 20 mg tablet Take 20 mg by mouth once daily. 10/13/2020 06/05/2024 Discontinued End: 10-16-2024 take 1 tablet by mouth in the evening atorvastatin (Lipitor) 40 MG tablet Indications: Hyperlipidemia Take 40 mg by mouth in the evening 04/10/2024 Discontinued (Therapy completed) Comment on above: Take 20 mg by mouth once daily. busPIRone hydrochloride 7.5 mg oral tablet (16 sources) Start: 05-29-2023 busPIRone 7.5 mg oral tablet Refills(s) 0 Start Date: 05/29/23 Status: Ordered take 7.5 mg by mouth in the morn ing busPIRone (Buspar) 15 MG tablet Take 7.5 mg by mouth in the morning and 7.5 mg in the evening. Active busPIRone (BUSPA R) 15 mg tablet Take 0.5 tablets (7.5 mg total) by mouth as needed (anxiety). Active meloxicam 15 mg oral tablet (18 sources) Nonsteroidal Anti-inflammatory Drug Start: 12-09-2021 take 1 tablet by mouth in the morning meloxicam (Mobic) 15 MG tablet Take 15 mg by mouth in the morning. 09/12/2023 Active mupirocin 0.02 mg/mg topical ointment (1 source) RNA Synthetase Inhibitor Antibacterial Start: 06-05-2024 End: 06-10-2024 mupirocin (BACTROBAN) 2 % ointment two times a day for 5 days. Apply 0.5 inch with cotton swab (Q-tip) to each nostril in the morning and evening for 5 days prior to and including day of surgery. 22 g 06/05/2024 06/10/2024 Active Aleve (8 sources) Nonsteroidal Anti-inflammatory Drug Start: 02-25-2022 take 1 mg by mouth every twelve hours Aleve mg, Oral, q12hr, Refills(s) 0 Start Date: 02/25/22 Status: Ordered omeprazole 40 mg delayed release oral capsule (20 sources) Proton Pump Inhibitor Start: 02-29-2024 End: 05-10-2024 take 1 capsule by mouth before mealtime omeprazole (PriLOSEC) [address] capsule Indications: Gastroesophageal reflux disease, unspecified whether esophagitis present Take 1 capsule (40 mg) by mouth in the morning. Take before meals. 30 capsule 5 04/10/2024 Active Start: 12-23-2010 Prilosec Oral, Daily, Refills(s) 0 Start Date: 12/23/10 Status: Ordered PriLOSEC 10 MG a s directed Orally Active Comment on above: Take 40 mg by mouth once daily. polyethylene glycol 3350 277452 mg / potassium chloride 1480 mg / sodium bicarbonate 5720 mg / sodium chloride 17479 mg powder for oral solution (3 sources) Osmotic Laxative Start: 3 NuLYTELY [place] oral powder for reconstitution See Instructions, 1 EA, Refill(s) 0, See physician instructions prior to procedure., [facility] #[id number], 155, cm, 11/24/22 13:47:00 EDT, Height/Length Dosing, 88.2, kg, 11/24/22 13:47:00 EDT, Weight Dosing Start Date: 11/28/22 Status: Ordered traMADol hydrochloride 50 mg oral tablet (6 sources) Opioid Agonist Start: 4 take 1 tablet by mouth every six hours traMADol (Ultram) 50 MG tablet Take 50 mg by mouth every 6 (six) hours 02/19/2024 Active Completed/Discontinued Medications Medication Drug Class(es) Dates Sig (Normalized) Sig (Original) ambrisentan 10 mg oral tablet (6 sources) Endothelin Receptor Antagonist End: 05-06-2024 take 10 mg by mouth once daily ambrisentan (LETAIRIS ORAL) Take 10 mg by mouth daily. 05/06/2024 Discontinued (Therapy completed) 5 ml bupivacaine hydrochloride 5 mg/ml injection (1 source) Amide Local Anesthetic Start: 12-31-2021 End: 12-31-2021 bupivacaine (PF) 0.5 % (5 mg/mL) 5 mL injection Start: 12-31-2021 End: 12-31-2021 bupivacaine (PF) 0.5 % (5 mg /mL) 5 mL injection carBAMazepine 200 mg oral tablet (16 sources) Mood Stabilizer End: 06-05-2024 carBAMazepine (TEGRETOL) 200 mg tablet Take 300 mg by mouth daily at bedtime. 06/05/2024 Discontinued Comment on above: Take 300 mg by mouth daily at bedtime. cetirizine hydrochloride 10 mg oral tablet (20 sources) Histamine-1 Receptor Antagonist Start: 02-29-2024 End: 06-05-2024 take 1 tablet by mouth once daily cetirizine (ZyrTEC) 10 MG tablet Indications: Chronic rhinitis Take 1 tablet (10 mg) by mouth Daily 30 tablet 5 04/10/2024 05/29/2024 Discontinued (Therapy completed) cetirizine (ZyrT EC) 5 mg tablet Take 1 tablet (5 mg total) by mouth as needed for allergies. Active Comment on above: Take 10 mg by mouth once daily. ciprofloxacin 500 mg oral tablet (1 source) Quinolone Antimicrobial Start: 03-03-20 take 1 tablet by mouth once daily Cipro 500 mg Tab 500 mg = 1 tab(s), Oral, Daily, Take 1 tablet the day before the procedure and 1 tablet after the procedure, # 2 tab(s), Refills(s) 0, Pharmacy: [facility] #[id number], 155, cm, 03/03/22 15:04:00 EDT, Height/Length Dosing, 90, kg, 02/25/22 10:22:00 EDT, Rubio... Start Date: 03/03/22 Status: Ordered citalopram 20 mg oral tablet (16 sources) Serotonin Reuptake Inhibitor End: 06-05-20 take 1 tablet by mouth once daily citalopram (CELEXA) 20 mg tablet Take 20 mg by mouth once daily. 06/05/2024 Discontinued End: 05-06-2024 take 1 tablet by mouth in the morning citalopram (CeleXA) 40 mg tablet Take 1 tablet (40 mg total) by mouth in the morning. 05/06/2024 Discontinued (Therapy completed) Comment on above: Take 20 mg by mouth once daily. colchicine 0.6 mg oral tablet (6 sources) End: 05-06-20 take 1 tablet by mouth in the morning colchicine (COLCRYS) 0.6 mg tablet Take 1 tablet (0.6 mg total) by mouth in the morning. Verified with [facility] . 05/06/2024 Discontinued (Therapy completed) 1 ml dexamethasone phosphate 4 mg/ml injection (1 source) Corticosteroid Start: 01-01-20 End: 01-01-20 dexAMETHasone sodium phosphate 4 mg injection (DECADRON) Start: 12-31-2021 End: 12-31-2021 dexAMETHasone sodium phospha te 4 mg injection (DECADRON) pravastatin sodium 40 mg oral tablet (6 sources) HMG-CoA Reductase Inhibitor End: 05-06-2024 take 1 tablet by mouth once daily pravastatin (PRAVACHOL) 40 mg tablet Indications: hyperlipidemia Take 1 tablet (40 mg total) by mouth nightly Indications: excessive fat in the blood. hyperlipidemia [facility] 05/06/2024 Discontinued (Therapy completed) Problems Active Problems Problem Classification Problem Date Documented Date Episodic/Chronic Anxiety disorders (18 sources) Anxiety disorder; Translations: [Anxiety] Onset: 07-25-2023 12-23-2010 Chronic Cardiac dysrhythmias (4 sources) Palpitations; Translations: [PALPITATIONS] Onset: 11-22-2022 Episodic Disorders of lipid metabolism (20 sources) Hyperlipidemia; Translations: [Other hyperlipidemia] Onset: 12-14-2020 Resolved: 01-14-2023 12-14-2020 Chronic Esophageal disorders (20 sources) Gastroesophageal reflux disease; Translations: [Gastro-esophageal reflux disease without esophagitis] Onset: 09-23-2022 12-16-2020 Chronic Immunizations and screening for infectious disease (7 sources) Needs influenza immunization; Translations: [Encounter for immunization] Onset: 04-10-2024 04-10-2024 Episodic Mood disorders (20 sources) Bipolar disorder; Translations: [Bipolar disorder, unspecified] Onset: 08-19-2017 Resolved: 05-29-2024 12-16-2020 Chronic Osteoarthritis (10 sources) Unilateral primary osteoarthritis, right hip; Translations: [Osteoarthritis of right hip joint] Onset: 06-14-2022 03-19-2024 Chronic Other acquired deformities (6 sources) Contracture of joint of left ankle; Translations: [Contracture, left ankle] Onset: 01-30-2024 01-30-2024 Chronic Other connective tissue disease (1 source) History of repair of hip joint; Translations: [Presence of right artificial hip joint] 04-16-2024 Chronic Other connective tissue disease (3 sources) [...] URETRL CALCUL OBST] Onset: 11-02-2022 Episodic Other ear and sense organ disorders (12 sources) Sensorineural hearing loss, bilateral; Translations: [Sensorineural hearing loss, bilateral] Onset: 01-14-2023 01-14-2023 Chronic Other injuries and conditions due to external causes (1 source) Foreign body in colon, sequela; Translations: [FOREIGN BODY IN COLON SEQUELA] Onset: 09-23-2022 Episodic Other nervous system disorders (1 source) Other chronic pain; Translations: [Other chronic pain] Onset: 08-21-2023 Chronic Other nervous system disorders (16 sources) Median nerve neuritis; Translations: [Other lesions of median nerve, left upper limb] Onset: 02-29-2024 02-29-2024 Chronic Other nervous system disorders (6 sources) Chronic pain; Translations: [Other chronic pain] Onset: 01-14-2023 Resolved: 01-14-2023 01-14-2023 Chronic Other non-traumatic joint disorders (8 sources) Pain in right hip; Translations: [PAIN IN RIGHT HIP] Onset: 11-17-2021 Resolved: 11-17-2021 Episodic Other non-traumatic joint disorders (19 sources) Hip pain; Translations: [Pain in right hip] Onset: 06-28-2023 09-12-2023 Episodic Other nutritional; endocrine; and metabolic disorders (16 sources) Obesity; Translations: [Obesity, unspecified] Onset: 11-08-2022 Resolved: 01-14-2023 09-07-2016 Chronic Other nutritional; endocrine; and metabolic disorders (18 sources) Body mass index 30+ - obesity; Translations: [Body mass index (BMI) 38.0-38.9, adult] Onset: 07-04-2023 Resolved: 04-10-2024 07-04-2023 Chronic Other nutritional; endocrine; and metabolic disorders (10 sources) Obesity caused by energy imbalance; Translations: [Morbid (severe) obesity due to excess calories] Onset: 01-30-2024 01-30-2024 Chronic Other skin disorders (4 sources) Localized swelling, mass and lump, neck; Translations: [LOCALIZED SWELLING MASS AND LUMP NECK] Onset: 10-04-2022 Episodic Other upper respiratory disease (10 sources) Chronic rhinitis; Translations: [Chronic rhinitis] Onset: 2023 2023 Chronic Other upper respiratory infections (6 sources) Chronic sinusitis; Translations: [Other chronic sinusitis] Onset: 07-13-2023 Resolved: 01-30-2024 01-30-2024 Chronic Pulmonary heart disease (20 sources) Pulmonary hypertension; Translations: [Pulmonary hypertension, unspecified] Onset: 11-08-2022 Resolved: 04-10-2024 09-07-2016 Chronic Regional enteritis and ulcerative colitis (20 sources) Crohn's disease; Translations: [Crohn's disease, unspecified, without complications] Onset: 09-21-2011 07-27-2016 Chronic Residual codes; unclassified (20 sources) Obstructive sleep apnea syndrome; Translations: [Obstructive sleep apnea (adult) (pediatric)] Onset: 11-25-2016 12-14-2020 Chronic Residual codes; unclassified (1 source) Sleep apnea, unspecified; Translations: [SLEEP APNEA UNSPECIFIED] Onset: 09-23-2022 Chronic Residual codes; unclassified (1 source) Obstructive sleep apnea (adult) (pediatric); Translations: [Obstructive sleep apnea (adult) (pediatric)] Onset: 05-09-2024 Chronic Residual codes; unclassified (1 source) Acquired [...] disc displacement, lumbosacral region] Chronic Thyroid disorders (20 sources) Nontoxic multinodular goiter; Translations: [Multinodular goiter] Onset: 09-06-2022 Resolved: 01-30-2024 Chronic Thyroid disorders (4 sources) Disorder of [...] New Patient; Translations: [New Patient] Onset: 03-06-2024 Unclassified (1 source) Post-op Onset: 05-17-2024 Unclassified (1 source) inspire consult Onset: 04-19-2024 Past or Other Problems Problem Classification Problem Date Documented Date Episodic/Chronic Abdominal pain (20 sources) Flank pain; Translations: [Abdominal pain] Onset: 12-14-2020 Resolved: 01-14-2023 02-25-2022 Episodic Calculus of urinary tract (19 sources) Kidney stone; Translations: [Calculus of kidney] Onset: 04-22-2022 Episodic Genitourinary symptoms and ill-defined conditions (20 sources) Lora hematuria; Translations: [Blood in urine] Onset: 04-26-2022 Resolved: 01-14-2023 02-25-2022 Episodic Intestinal obstruction without hernia (16 sources) Enterolith of small intestine; Translations: [Other impaction of intestine] Onset: 12-14-2020 12-16-2020 Episodic Nonspecific chest pain (8 sources) Precordial pain; Translations: [Chest pain] Onset: 02-09-2012 Resolved: 01-14-2023 Episodic Other connective tissue disease (6 sources) Trochanteric bursitis, right hip; Translations: [TROCHANTERIC BURSITIS RIGHT HIP] Onset: 12-09-2021 Resolved: 12-09-2021 Episodic Other connective tissue disease (6 sources) Pain of left heel; Translations: [Pain in left foot] Onset: 10-25-2023 10-25-2023 Episodic Other connective tissue disease (6 sources) Pain in left foot; Translations: [Pain in left foot] Onset: 11-08-2023 11-08-2023 Episodic Other connective tissue disease (6 sources) Disorder of Achilles tendon; Translations: [Other specified disorders of tendon, left ankle and foot] Onset: 10-25-2023 Resolved: 10-25-2023 10-25-2023 Episodic Other lower respiratory disease (6 sources) Disorder of lung; Translations: [Other disorders of lung] Onset: 04-05-2013 01-14-2023 Episodic Other lower respiratory disease (6 sources) Dyspnea; Translations: [Dyspnea, unspecified] Onset: 04-20-2012 01-14-2023 Episodic Other non-traumatic joint disorders (1 source) Osteophyte, right hip; Translations: [OSTEOPHYTE RIGHT HIP] Onset: 07-15-2022 Episodic Other and delivery including normal (10 sources) Vaginal delivery; Translations: [Encounter for full-term uncomplicated delivery] Onset: 07-27-2016 07-27-2016 Episodic Other screening for suspected conditions (not mental disorders or infectious disease) (14 sources) Encounter for screening for malignant neoplasm of cervix; Translations: [Encounter for screening mammogram for malignant neoplasm of breast] Onset: 02-09-2022 Episodic Other upper respiratory infections (12 sources) Acute sinusitis; Translations: [Other acute sinusitis] Onset: 06-07-2023 Resolved: 01-30-2024 01-30-2024 Episodic Otitis media and related conditions (18 sources) Finding of fluid behind tympanic membrane; Translations: [Unspecified nonsuppurative otitis media, right ear] Onset: 07-04-2023 Resolved: 01-30-2024 07-13-2023 Episodic Ovarian cyst (1 source) Other ovarian cyst, left side; Translations: [OTHER OVARIAN CYST LEFT SIDE] Onset: 06-11-2022 Episodic Pleurisy; pneumothorax; pulmonary collapse (6 sources) Pleurisy; Translations: [Pleurisy] Onset: 04-05-2013 01-14-2023 Episodic Residual codes; unclassified (1 source) Family history of malignant neoplasm of breast; Translations: [FAMILY HX MALIG NEOPLASM OF BREAST] Onset: 02-10-2022 Episodic Residual codes; unclassified (1 source) Family history of malignant neoplasm of digestive organs; Translations: [FAM HX MALIG NEOPLASM DIGESTIV ORGN] Onset: 02-10-2022 Episodic Spondylosis; intervertebral disc disorders; other back problems (17 sources) Chronic low back pain; Translations: [Chronic [...] (SUSP) EXPOS COVID-19] Onset: 01-24-2022 Viral infection (18 sources) Disease caused by 2019-nCoV; Translations: [COVID-19] Onset: 01-24-2022 Resolved: 09-28-2023 07-13-2023 Episodic Viral infection (2 sources) COVID-19; Translations: [COVID-19] Onset: 01-27-2022 Results Test Name Value Interpretation Reference Range Facility Basic metabolic 2000 panelon 06-05-2024 Anion gap [Moles/Vol] 11 mmol/L Normal 8-15 [facility] Comment on above: Order Comment: Speci men Type: BLOOD SPECIMEN Ordering Facility: [facility] Address: [address] [place] [address] Performed By: #### 5 0190-8, 92105-5, 6-4 #### [facility] CLIA [id number] [address] [place] [address] [place] Calcium [Mass/Vol] 9.6 mg/dL Normal 8.5-10.2 [facility] Comment on above: Order Comment: Speci men Type: BLOOD SPECIMEN Ordering Facility: [facility] Address: [address] [place] [address] Performed By: #### 5 0190-8, 61593-7, 6-4 #### [facility] CLIA [id number] [address] [place] [address] [place] Chloride [Moles/Vol] 104 mmol/L Normal 98-107 [facility] Comment on above: Order Comment: Speci men Type: BLOOD SPECIMEN Ordering Facility: [facility] Address: [address] [place] [address] Performed By: #### 5 0190-8, 92858-9, 2275-09 #### [facility] CLIA [id number] [address] [place] [address] [place] CO2 [Moles/Vol] 25 mmol/L Normal 22-30 [facility] Comment on above: Order Comment: Speci men Type: BLOOD SPECIMEN Ordering Facility: [facility] Address: [address] [place] [address] Performed By: #### 5 0190-8, 56037-0, 2275-09 #### [facility] CLIA [id number] [address] [place] [address] [place] Creatinine [Mass/Vol] 0.70 mg/dL Normal 0.58-0.96 [facility] Comment on above: Order Comment: Speci men Type: BLOOD SPECIMEN Ordering Facility: [facility] Address: [address] [place] [address] Performed By: #### 5 0190-8, 67481-8, 2275-09 #### [facility] CLIA [id number] [address] [place] [address] [place] Creatinine and Glomerular filtration rate.predicted panel (S/P/Bld) 108 mL/min/1.73m??? Normal >=60 [facility] Comment on above: Order Comment: Speci men Type: BLOOD SPECIMEN Ordering Facility: [facility] Address: [address] [place] [address] Result Comment: Etta mated Glomerular Filtration Rate (eGFR) is calculated using the 2020 CKD-EPI creatinine equation. This equation utilizes serum creatinine, sex, and age as parameters. The creatinine assay has traceable calibration to isotope dilution-mass spectrometry. Refer to KDIGO guidelines for clinical interpretation. In patients with unstable renal function, e.g. those with acute kidney injury, the eGFR may not accurately reflect actual GFR. Performed By: #### 5 0190-8, 48356-7, 2275-09 #### [facility] CLIA [id number] [address] [place] [address] [place] Glucose [Mass/Vol] 88 mg/dL Normal 74-99 [facility] Comment on above: Order Comment: Cindy men Type: BLOOD SPECIMEN Ordering Facility: [facility] Address: [address] [place] [address] Result Comment: The [place] [employer] (ADA) provides guidance for cutoff values for fasting glucose and random glucose. The ADA defines fasting as no caloric intake for at least 8 hours. Fasting plasma glucose results between 100 to 125 mg/dL indicate increased risk for diabetes (prediabetes). Fasting plasma glucose results greater than or equal to 126 mg/dL meet the criteria for diagnosis of diabetes. In the absence of unequivocal hyperglycemia, results should be confirmed by repeat testing. In a patient with classic symptoms of hyperglycemia or hyperglycemic crisis, random plasma glucose results greater than or equal to 200 mg/dL meet the criteria for diagnosis of diabetes. Reference: Standards of Medical Care in Diabetes 2016, [place] [employer]. Diabetes Care. 2016.39(Suppl 1). Performed By: #### 5 0190-8, 11412-4, 2275-09 #### [facility] CLIA [id number] [address] [place] [address] [place] Potassium [Moles/Vol] 4.9 mmol/L Normal 3.7-5.1 [facility] Comment on above: Order Comment: Matti men Type: BLOOD SPECIMEN Ordering Facility: [facility] Address: [address] [place] [address] Performed By: #### 5 0190-8, 48171-6, 2275-09 #### [facility] CLIA [id number] [address] [place] [address] [place] Sodium [Moles/Vol] 140 mmol/L Normal 136-144 [facility] Comment on above: Order Comment: Matti men Type: BLOOD SPECIMEN Ordering Facility: [facility] Address: [address] [place] [address] Performed By: #### 5 0190-8, 42924-7, 6-4 #### [facility] CLIA [id number] [address] [place] [address] [place] Urea nitrogen [Mass/Vol] 17 mg/dL Normal 7-21 [facility] Comment on above: Order Comment: Speci men Type: BLOOD SPECIMEN Ordering Facility: [facility] Address: [address] [place] [address] Performed By: #### 5 0190-8, 05958-1, 2275-4 #### [facility] CLIA [id number] [address] [place] [address] [place] CBC W Auto Differential pane l (Bld)on 06-05-2024 Basophils (Bld) [#/Vol] 0.10 10*3/uL Normal <0.11 [facility] Comment on above: Order Comment: Speci men Type: BLOOD SPECIMEN Ordering Facility: [facility] Address: [address] [place] [address] Performed By: #### 5 7021-8 #### [facility] CLIA [id number] [address] [place] [address] [place] Basophils/100 WBC (Bld) 1.2 % Normal [facility] Comment on above: Order Comment: Speci men Type: BLOOD SPECIMEN Ordering Facility: [facility] Address: [address] [place] [address] Performed By: #### 5 7021-8 #### [facility] CLIA [id number] [address] [place] [address] [place] Differential cell count method Nom (Bld) Auto Normal [facility] Comment on above: Order Comment: Speci men Type: BLOOD SPECIMEN Ordering Facility: [facility] Address: [address] [place] [address] Performed By: #### 5 7021-8 #### [facility] CLIA [id number] [address] [place] [address] [place] Eosinophils (Bld) [#/Vol] 0.52 10*3/uL High <0.46 [facility] Comment on above: Order Comment: Speci men Type: BLOOD SPECIMEN Ordering Facility: [facility] Address: [address] [place] [address] Performed By: #### 5 7021-8 #### [facility] CLIA [id number] [address] [place] [address] [place] Eosinophils/100 WBC (Bld) 6.0 % Normal [facility] Comment on above: Order Comment: Speci men Type: BLOOD SPECIMEN Ordering Facility: [facility] Address: [address] [place] [address] Performed By: #### 5 7021-8 #### [facility] CLIA [id number] [address] [place] [address] [place] Erythrocyte distribution width (RBC) [Ratio] 12.5 % Normal 11.5-15.0 [facility] Comment on above: Order Comment: Speci men Type: BLOOD SPECIMEN Ordering Facility: [facility] Address: [address] [place] [address] Performed By: #### 5 7021-8 #### [facility] CLIA [id number] [address] [place] [address] [place] Hematocrit (Bld) [Volume fraction] 44.2 % Normal 36.0-46.0 [facility] Comment on above: Order Comment: Speci men Type: BLOOD SPECIMEN Ordering Facility: [facility] Address: [address] [place] [address] Performed By: #### 5 7021-8 #### [facility] CLIA [id number] [address] [place] [address] [place] Hemoglobin (Bld) [Mass/Vol] 13.8 g/dL Normal 11.5-15.5 [facility] Comment on above: Order Comment: Speci men Type: BLOOD SPECIMEN Ordering Facility: [facility] Address: [address] [place] [address] Performed By: #### 5 7021-8 #### [facility] CLIA [id number] [address] [place] [address] [place] Immature granulocytes (Bld) [#/Vol] 10*3/uL Normal <0.10 [facility] Comment on above: Order Comment: Speci men Type: BLOOD SPECIMEN Ordering Facility: [facility] Address: [address] [place] [address] Performed By: #### 5 7021-8 #### [facility] CLIA [id number] [address] [place] [address] [place] Immature granulocytes/100 WBC (Bld) 0.2 % Normal [facility] Comment on above: Order Comment: Speci men Type: BLOOD SPECIMEN Ordering Facility: [facility] Address: [address] [place] [address] Performed By: #### 5 7021-8 #### [facility] CLIA [id number] [address] [place] [address] [place] Lymphocytes (Bld) [#/Vol] 2.89 10*3/uL Normal 1.00-4.00 [facility] Comment on above: Order Comment: Speci men Type: BLOOD SPECIMEN Ordering Facility: [facility] Address: [address] [place] [address] Performed By: #### 5 7021-8 #### [facility] CLIA [id number] [address] [place] [address] [place] Lymphocytes/100 WBC (Bld) 33.4 % Normal [facility] Comment on above: Order Comment: Speci men Type: BLOOD SPECIMEN Ordering Facility: [facility] Address: [address] [place] [address] Performed By: #### 5 7021-8 #### [facility] CLIA [id number] [address] [place] [address] [place] MCH (RBC) [Entitic mass] 28.6 pg Normal 26.0-34.0 [facility] Comment on above: Order Comment: Speci men Type: BLOOD SPECIMEN Ordering Facility: [facility] Address: [address] [place] [address] Performed By: #### 5 7021-8 #### [facility] CLIA [id number] [address] [place] [address] [place] MCHC (RBC) [Mass/Vol] 31.2 g/dL Normal 30.5-36.0 [facility] Comment on above: Order Comment: Speci men Type: BLOOD SPECIMEN Ordering Facility: [facility] Address: [address] [place] [address] Performed By: #### 5 7021-8 #### [facility] CLIA [id number] [address] [place] [address] [place] MCV (RBC) [Entitic vol] 91.5 fL Normal 80.0-100.0 [facility] Comment on above: Order Comment: Speci men Type: BLOOD SPECIMEN Ordering Facility: [facility] Address: [address] [place] [address] Performed By: #### 5 7021-8 #### [facility] CLIA [id number] [address] [place] [address] [place] Monocytes (Bld) [#/Vol] 0.66 10*3/uL Normal <0.87 [facility] Comment on above: Order Comment: Speci men Type: BLOOD SPECIMEN Ordering Facility: [facility] Address: [address] [place] [address] Performed By: #### 5 7021-8 #### [facility] CLIA [id number] [address] [place] [address] [place] Monocytes/100 WBC (Bld) 7.6 % Normal [facility] Comment on above: Order Comment: Speci men Type: BLOOD SPECIMEN Ordering Facility: [facility] Address: [address] [place] [address] Performed By: #### 5 7021-8 #### [facility] CLIA [id number] [address] [place] [address] [place] Neutrophils (Bld) [#/Vol] 4.45 10*3/uL Normal 1.45-7.50 [facility] Comment on above: Order Comment: Speci men Type: BLOOD SPECIMEN Ordering Facility: [facility] Address: [address] [place] [address] Performed By: #### 5 7021-8 #### [facility] CLIA [id number] [address] [place] [address] [place] Neutrophils/100 WBC (Bld) 51.6 % Normal [facility] Comment on above: Order Comment: Speci men Type: BLOOD SPECIMEN Ordering Facility: [facility] Address: [address] [place] [address] Performed By: #### 5 7021-8 #### [facility] CLIA [id number] [address] [place] [address] [place] Nucleated RBC (Bld) [#/Vol] 10*3/uL Normal <0.01 [facility] Comment on above: Order Comment: Speci men Type: BLOOD SPECIMEN Ordering Facility: [facility] Address: [address] [place] [address] Performed By: #### 5 7021-8 #### [facility] CLIA [id number] [address] [place] [address] [place] Nucleated RBC/100 WBC (Bld) [Ratio] 0.0 /100 WBC Normal [facility] Comment on above: Order Comment: Speci men Type: BLOOD SPECIMEN Ordering Facility: [facility] Address: [address] [place] [address] Performed By: #### 5 7021-8 #### [facility] CLIA [id number] [address] [place] [address] [place] Platelet mean volume (Bld) [Entitic vol] 11.5 fL Normal 9.0-12.7 [facility] Comment on above: Order Comment: Speci men Type: BLOOD SPECIMEN Ordering Facility: [facility] Address: [address] [place] [address] Performed By: #### 5 7021-8 #### [facility] CLIA [id number] [address] [place] [address] [place] Platelets (Bld) [#/Vol] 319 10*3/uL Normal 150-400 [facility] Comment on above: Order Comment: Speci men Type: BLOOD SPECIMEN Ordering Facility: [facility] Address: [address] [place] [address] Performed By: #### 5 7021-8 #### [facility] CLIA [id number] [address] [place] [address] [place] RBC (Bld) [#/Vol] 4.83 10*6/uL Normal 3.90-5.20 [facility] Comment on above: Order Comment: Speci men Type: BLOOD SPECIMEN Ordering Facility: [facility] Address: [address] [place] [address] Performed By: #### 5 7021-8 #### [facility] CLIA [id number] [address] [place] [address] [place] WBC (Bld) [#/Vol] 8.64 10*3/uL Normal 3.70-11.00 [facility] Comment on above: Order Comment: Speci men Type: BLOOD SPECIMEN Ordering Facility: [facility] Address: [address] [place] [address] Performed By: #### 5 7021-8 #### [facility] CLIA [id number] [address] [place] [address] [place] Ferritin SerPl-mCncon 2023 Ferritin [Mass/Vol] 129.0 ng/mL Normal 14.7-205.1 [facility] Comment on above: Order Comment: Speci men Type: BLOOD SPECIMEN Ordering Facility: [facility] Address: [address] [place] [address] Performed By: #### 5 0190-8, 59349-1, 2276-4 #### [facility] CLIA [id number] [address] [place] [address] [place] HISTORY PHYSICALon HISTORY PHYSICAL HNO ID: [id number] Author: NEGRITA TEJEDA APRN.NIURKA Service: ? Author Type: Nurse Practitioner Type: H&P Filed: 06/06/2024 10:26 Note Text: [facility] HISTORY AND PHYSICAL EXAMINATION SERVICE DATE: 06/05/2024 SERVICE TIME: 9:56 AM PRIMARY CARE PHYSICIAN: Essie Ryan, NIURKA, TELEVISION TECHNICIAN REASON FOR VISIT: Stacey Sahu is a 48 year old female who is scheduled for Right - ARTHROPLASTY REPLACE JOINT TOTAL HIP at the request of Dr. Lois Mckeon for consultation. My final recommendation will be communicated back to the requesting physician by way of shared medical record or letter. Assessment NIRMALA (obstructive sleep apnea) Assessment: non-compliant with CPAP GERD (gastroesophageal reflux disease) Assessment: managed with med, stable Follows up with PCP Pulmonary HTN (HCC) Assessment: EF 65% per ECHO 11/22/22 Follows up with cardiology, last office visit 03/06/24 Asymptomatic Other hyperlipidemia Assessment: diet controlled, stable Follows up with PCP BMI 37.0-37.9, adult Assessment: diet and exercise encouraged Diane Activity Status Index: METS: Walk indoors, such as around the house (1.75 METs) Do light work around the house, such as dusting or washing dishes (2.70 METs) Take care of self; that is eating, dressing, bathing, using the toilet (2.75 METs) Walk a block or two on level ground (2.75 METs) Do moderate work around the house, such as vacuuming, sweeping floors, or carrying in groceries (3.50 METs) Do yardwork, such as raking leaves, weeding, or pushing a power mower (4.50 METs) Climb a flight of stairs or walk up a hill (5.50 METs) DASI Score: 23.45 Patient denies any chest pain or undue shortness of breath with the above physical activity. Clinical Frailty Scale: 2. Well STOP-Bang Score: STOP-Bang Score: 0 (Non-compliant with CPAP ) [id number] Score: Age: <65 Sex: female [id number] Score: ARISCAT Score: Age: <=50 Preoperative SpO2: >=96% Preoperative anemia: Yes Duration of surgery: 2-3 hrs Emergency procedure: No ARISCAT Score: ANESTHESIA FINDINGS: Intubation History: No history of difficult intubation. No abnormal airway history Significant Anesthesia Considerations: none Airway History: No history of difficult airway No abnormal airway history I - PHYSICAL EVALUATION AIRWAY Patient intubated: No. Tracheostomy tube not present Mallampati: III. TM distance: <3 FB. Neck ROM: full ROM without neurological symptoms. Mouth opening: adequate. Short neck: yes. Thick neck: yes Lip Bite Test: I DENTAL Dental findings: teeth intact. II - ANESTHESIA PLAN Anesthetic plan additional comments: *PACC/TCI - anesthesia choice. Beta Roderick Monitoring Plan Post Procedure Analgesic Plan Prepared for surgery: This patient is optimally prepared for surgery CONSULTS: Patient does not require consults for optimization at this time. The Following Tests/Procedures Have Been Initiated: Orders Placed This Encounter Complete Blood Count and Differential Standing Status: Future Number of Occurrences: 1 Standing Expiration Date: 09/04/2024 BMP Standing Status: Future Number of Occurrences: 1 Standing Expiration Date: 09/04/2024 Iron and TIBC Standing Status: Future Number of Occurrences: 1 Standing Expiration Date: 09/04/2024 Ferritin Standing Status: Future Number of Occurrences: 1 Standing Expiration Date: 09/04/2024 meloxicam (MOBIC) 15 mg tablet Sig: Take 15 mg by mouth once daily. ARIPiprazole (ABILIFY) 30 mg tablet Sig: Take 1 tablet by mouth once daily. mupirocin (BACTROBAN) 2 % ointment Sig: two times a day for 5 days. Apply 0.5 inch with cotton swab (Q-tip) to each nostril in the morning and evening for 5 days prior to and including day of surgery. Dispense: 22 g Refill: 0 ECG (IN OFFICE) Planned Anesthetic: Per anesthesia choice The patient has the following: ACTIVE PROBLEM LIST (spontaneous vaginal delivery) x 4 Crohn's disease without complication (HCC) [id number] Pulmonary Htn (Hcc) Obese Nirmala (Obstructive Sleep Apnea) Gerd (Gastroesophageal Reflux Disease) Crohn's Disease of Intestine (Hcc) Enterolith of Small Intestine (Hcc) Bipolar Disease, Chronic (Hcc) Other Hyperlipidemia Bmi 37.0-37.9, Adult Subjective CHIEF COMPLAINT: Pre-op exam HPI: This is a 48 year old female that is scheduled for the above procedure. Patient has osteoarthritis in her right hip that is causing worsening pain. She states current pain is 3/10 and described as aching with intermittent sharp pain. States pain is constant; denies alleviating or aggravating factors. PAST MEDICAL HISTORY Diagnosis Date Abnormal uterine bleeding s/p hysterectomy Bipolar disorder (HCC) Crohn's disease of intestine (HCC) s/p surgery 1999' GERD (gastroesophageal reflux disease) Obese NIRMALA (obstructive slee (more content not included)... Normal [facility] Iron and Iron binding capaci ty panelon 06-05-2024 Iron [Mass/Vol] 91 ug/dL Normal 41-186 [facility] Comment on above: Order Comment: Speci men Type: BLOOD SPECIMEN Ordering Facility: [facility] Address: [address] [place] [address] Performed By: #### 5 0190-8, 81024-4, 2275-09 #### [facility] CLIA [id number] [address] [place] [address] [place] Iron binding capacity [Mass/Vol] Normal [facility] Comment on above: Order Comment: Speci men Type: BLOOD SPECIMEN Ordering Facility: [facility] Address: [address] [place] [address] Result Comment: Unab le to calculate due to hemolysis. Performed By: #### 5 0190-8, 07904-5, 2275-09 #### [facility] CLIA [id number] [address] [place] [address] [place] Iron/TIBC [Molar ratio] Normal [facility] Comment on above: Order Comment: Speci men Type: BLOOD SPECIMEN Ordering Facility: [facility] Address: [address] [place] [address] Result Comment: Unab le to calculate due to hemolysis. Performed By: #### 5 0190-8, 27851-2, 2276-4 #### [facility] CLIA [id number] [address] [place] [address] [id number] [place] [address] OF [facility] CNPNon 05-09-2024 CNPN Telephone (ORTH[facility]) STACEY SAHU ([id number]) 1975 F Date Time Provider Department 05/09/24 LOIS MCKEON [facility] During your visit today, we recorded the following information about you: Lee Ann Valladares 05/09/2024 12:59 PM Signed PSS calling from Dr Rossi's office to ask how soon the PT could be scheduled for surgery for inspire implant, nerve stimulator. General for 3 hours. Please advise [phone] ask to speak with Alejandra or [place]. Allergies As of Date: 05/09/2024 Noted Allergy Reaction PENICILLINS 07/27/2016 16 - Unknown Date Reviewed: 04/16/2024 Reviewed by: Clarissa Nelson MA - Fully Assessed Reason for Visit: Question [7702] Cmt: See note Prescriptions as of 06/01/2024 - atorvastatin (LIPITOR) 20 mg tablet Take [...] once daily. Problem List As Of Date 05/09/2024 Noted Resolved (spontaneous vaginal delivery) x 4 [O80] 07/27/2016 Crohn's disease without complication (HCC) bc*07/27/2016 Pulmonary HTN (HCC) [I27.20] Obese [E66.9] NIRMALA (obstructive sleep apnea) [G47.33] GERD (gastroesophageal reflux disease) [K21.9] Crohn's disease of intestine (HCC) [K50.90] Enterolith of small intestine (HCC) [K56.49] 12/14/2020 Bipolar disease, chronic (HCC) [F31.9] 12/14/2020 Generalized abdominal pain [R10.84] 12/14/2020 12/16/2020 Other hyperlipidemia [E78.49] 12/14/2020 Encounter Status:Closed by LEE ANN VALLADARES on 06/01/24 [facility] CNOVon 04-16-2024 CNOV Office Visit (ORTHST) STACEY SAHU ([id number]) 1975 F Date Time Provider Department 04/16/24 1:10 PM LOIS MCKEON During your visit today, we recorded the following information about you: Lois Mckeon MD 04/16/2024 1:49 PM Signed Follow-up right hip and to go over the results of her MRI.She has a large degenerative labral tear and a large osteophyte from the lateral posterior lateral aspect of the acetabulum. She is get degenerative changes in the hip joint. Her pain is groin primarily. We reviewed the studies and she has failed conservative treatment. Unfortunately there is nothing else I can offer her at this point short of a hip replacement. Risks and benefits were discussed and all questions answered. Will schedule this for later in the winter. Assessment right hip arthritis. Lois Mckeon MD Allergies As of Date: 04/16/2024 Noted Allergy Reaction PENICILLINS 07/27/2016 16 - Unknown Date Reviewed: 04/16/2024 Reviewed by: Clarissa Nelson MA - Fully Assessed Reason for Visit: Established Patient [175] Cmt: Surgical consult Results - Mri [3561] Cmt: Surgical consult Primary Visit Diagnosis:Primary osteoarthritis of right hip [M16.11] Other Visit Diagnosis:Status post right hip replacement [Z96.641] Order(s):CONSULT TO PHYSICAL THERAPY [9032] Order #: [id number]: 1 FUTURE BATH/SHOWER CHAIR [[id number]] Order #: [id number] TOILET RAIL, EACH [[id number]] Order #: [id number] RAISED TOILET SEAT [[id number]] Order #: [id number] WALKER FOLDING WHEELED W/O S [[id number]] Order #: [id number] Prescriptions as of 04/16/2024 - atorvastatin (LIPITOR) 20 mg tablet Take [...] once daily. Problem List As Of Date 04/16/2024 Noted Resolved (spontaneous vaginal delivery) x 4 [O80] 07/27/2016 Crohn's disease without complication (HCC) bc*07/27/2016 Pulmonary HTN (HCC) [I27.20] Obese [E66.9] NIRMALA (obstructive sleep apnea) [G47.33] GERD (gastroesophageal reflux disease) [K21.9] Crohn's disease of intestine (HCC) [K50.90] Enterolith of small intestine (HCC) [K56.49] 12/14/2020 Bipolar disease, chronic (HCC) [F31.9] 12/14/2020 Generalized abdominal pain [R10.84] 12/14/2020 12/16/2020 Other hyperlipidemia [E78.49] 12/14/2020 Encounter Status:Closed by LOIS MCKEON on 04/16/24 Normal [facility] CNOVon 03-19-2024 CNOV Office Visit (OTMBHT) STACEY SAHU ([id number]) 1975 F Date Time Provider Department 03/19/24 9:30 AM LOIS MCKEON OTMBHT During your visit today, we recorded the following information about you: Clarissa Zacarias, PATIENCE 03/19/2024 10:[address] Mckeon has ordered a cream that will be delivered to your home. The company, [employer], will call or text you from a [phone] phone number. Please reply or answer the [...] her quality of life. 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 Pain is [...] - Fully Assessed Reason for Visit: New [174637] Cmt: Surgical consult Primary Visit Diagnosis:Pain of right hip [M25.551] Other Visit Diagnosis:Primary osteoarthritis of right hip [M16.11] Order(s):MRI HIP WO IVCON RIGHT [[id number]] Order #: [id number] FUTURE Prescriptions as of 03/19/2024 - atorvastatin [...] be delivered to your home. The company, [employer], will call or text you from a [phone] phone number. Please reply or answer the call to start the process. If you do not hear from them within 48 hours, please call . Letter Text Encounter Status:Closed by LOIS MCKEON on 03/19/24 Normal [facility] XR HIP 3V PELV+ AP/LAT RTon [...] Mild right hip osteoarthritis, similar to 11/17/2021. Animal Rescuer: AGAPITO Transcribe Date/Time: Mar 19 2024 9:10A Dictated by : MELISSA MODI MD This examination was interpreted and the report reviewed and electronically signed by: MELISSA MODI MD on Mar 19 2024 9:11AM EST [id number] Normal [facility] XR Pelvis and Hip - right AP and Lateral frogon 03-19-2024 IMPRESSION: Mild right hip osteoarthritis, similar to 11/17/2021. Animal Rescuer: PSCB Transcribe Date/Time: Mar 19 2024 9:10A Dictated [...] right lower quadrant. DIVISION OF RADIOLOGY Provider, [facility] - 03/19/2024 * * *Final Report* * [...] Mild right hip osteoarthritis, similar to 11/17/2021. Animal Rescuer: PSCB Transcribe Date/Time: Mar 19 2024 9:10A Dictated by : MELISSA MODI MD This examination was interpreted and the report reviewed and electronically signed by: MELISSA MODI MD on Mar 19 2024 9:11AM EST [facility] Radiology Study observation (narrative) [facility] XR Pelvis and Hip - right AP and Lateral frogOrdered By: Ccf Provider on 03-19-2024 [facility] [place] 03-18-2024 CNPN Telephone (OTMBHT) STACEY SAHU ([id number]) 1975 F Date Time Provider Department 03/18/24 LOIS MCKEON OTMBHT During your visit today, we recorded the following information about you: Lupe Betancourt 03/18/2024 4:00 PM Signed Name of Caller: stacey Relationship to patient: patient Last visit in this department: Visit date not found Reason for Call: Other : has questions about what to expect at her appt on 03/19 Callback number: [phone] Clarissa Zacarias RN 03/18/2024 4:57 PM Signed [...] Encounter Status:Closed by LUPE BETANCOURT on 03/22/24 [facility] 29on 03-06-2024 29 Addended by: KAMINI LOVE on: 03/08/2024 11:39 AM Modules accepted: Orders [facility] Office Visiton 03-06-2024 Follow-up visit [id number] Stacey Sahu 1975 F Date Provider Department Center 03/06/2024 TRINH BASHIR [facility] SLEEP [facility] Family History Problem Relation Age of Onset Coronary artery disease Father Family Status - Relation Status Age at Father Level of Service:71042 [place] OFFICE/OUTPATIENT NEW MODERATE MDM 45 MINUTES Reason for Visit and Comments: New Patient [632] - Pt was referred for an [facility] sleep apnea evaluation. Pt follows with pulmonary, Dr. Rosa in [place]. [facility] Follow-up visit [id number] Stacey Sahu 1975 F Date Provider Department Center 03/06/2024 TINO PRATER [facility] Family History Problem Relation Age of Onset Coronary artery disease Father Family Status - Relation Status Age at Father Level of Service:03231 [place] OFFICE/OUTPATIENT ESTABLISHED LOW MDM 20 MIN [facility] Patient Educationon 11-28-19 Patient Education Nephrology [...] Spinach (cooked), rhubarb, beets, sweet potatoes, and Guinean chard. ? Peanuts. ? Potato chips, samoan fries, and baked potatoes with skin on. ? Nuts and nut products. ? Chocolate. ? If you regularly take a diuretic medicine, make sure to eat at least 1 or 2 servings of fruits or vegetables that are high in potassium each day. These include: ? Avocado. ? Banana. ? [place], prune, carrot, or tomato juice. ? Baked [...] fish oil, or vitamin B6. ? Take mkvo-bvy-lukgmjn and prescription medicines only as told by your health care provider. These include supplements. What foods sh (more content not included)... Normal [facility] Screenson 11-28-2023 Screens [id number]# 1.00TIFF Normal [facility] Urology Office/Clinic Noteon 11-28-2023 Urology Office/Clinic [...] Contact Information ANGELICA SHAIKH, LESLIE Medina, URL [address] [facility] [place] [address] Additional Instructions: 1 yr KUB, BEN Patient Education Dietary Guidelines to Help Prevent Kidney Stones Documentation recorded by the scrbruno Denis accurately reflects the services(s) I performed [...] Protein Urine Dipstick: Negative (11/28/23 09:04:00) Specific Export Urine Dipstick: 1.020 (11/28/23 09:04:00) Urine Appearance Urine Dipstick: Clear (11/28/23 09:04:00) Urine Color Urine Dipstick: Yellow (11/28/23 09:04:00) Urobilinogen Urine Dipstick: Normal 0.2-1 EU/dl (11/28/23 09:04:00) pH Urine Dipstick: 7 (11/28/23 09:04:00) [1] URO- 6 month f/u; JOSE FELIX, Jose Palafox 05/29/2023 15:18 EST Normal [facility] Comment on above: Result Comment: Elec tronically Signed By: LESLIE JUNG PA-C\.br\Date and Time Signed: 11/28/23 10:11 EDT\.br\Electronically Co-Signed By: Zenobia Denis\.br\Date and Time Co-Signed: 11/28/23 09:37 EDT 37on 08-29-2023 37 Increase lipitor/atorvastatin to 40 mg daily Have labs drawn in about 2-3 months to check liver function and cholesterol levels Normal [facility] Office Visiton 08-29-2023 Follow-up visit [id number] Stacey Sahu 1975 F Date Provider Department Center 08/29/2023 KeithPAULTINO [facility] Family History Problem Relation Age of Onset Coronary artery disease Father Family Status - Relation Status Age at Father Level of Service:01052 [place] OFFICE/OUTPATIENT ESTABLISHED MOD MDM 30 MIN Normal [facility] Lab Reportson 08-01-2023 Lab Reports [id number] #1.00TIFF Normal [facility] Lab Reportson 07-31-2023 Lab Reports [id number] #1.00TIFF Normal [facility] Lab Reportson 07-28-2023 Lab Reports [id number] #1.00TIFF Normal [facility] Lab Reports [id number] #1.00TIFF Normal [facility] Lab Reportson 07-26-2023 Lab Reports [id number] #1.00TIFF Normal [facility] COVID/FLU/RSV RT-PCRon 07-11 SARS-CoV-2 (COVID-19) RNA IZAIAH+probe Ql (Unsp spec) Positive [facility] Other COVID/FLU/RSV RT-PCR Negative [facility] Other Ambulatory Visit Summaryon 1 07-30-2022 Ambulatory Visit Summary STACEY SAHU :1975 Visit Date:05/29/2023 Ambulatory Visit Instructions Your Diagnosis Kidney stones Gross hematuria Tests Performed Urnls Dip Stick Auto w/o Microscopy POC 33216 Your Care Team Attending Physician - Jose [...] Schedule the Following Appointments Follow Up with Jose GARCIA MD, URL When: Comments: 4 mos w/ metabolic w/u Where: [facility] [address], [place] [phone] Medications What How Much When Instructions Unchanged [...] Urnls Dip Stick Auto w/o Microscopy POC 76918 (05/29/2023) Bilirubin Urine Dipstick - Negative Blood Urine Dipstick - 3+ Large Glucose Urine Dipstick - Negative Ketones Urine Dipstick - Negative Leukocytes Urine Dipstick - Negative Nitrite Urine Dipstick - Negative Protein Urine Dipstick - Negative Specific Export Urine Dipstick - >=1.030 Urine Appearance Urine [...] Santy (more content not included)... Normal [facility] Patient Educationon 05-29-20 Patient Education Urology Kidney [...] these instructions at home: Medicines ? Take rxgd-ons-jybnewt and prescription medicines only as told by [...] provider. Document Revised: 02/14/2022 Document Reviewed: 02/14/2022 [employer] Patient Education ? 2022 [employer]azz. [facility] Urology Office/Clinic Noteon 05-29-2023 Urology [...] stones id'd. CT AP w con 12/06/22 [facility] - 5mm RLP stone and 2mm LLP [...] [facility] [address], [place] [phone] Additional Instructions: 4 mos w/ metabolic w/u Patient Education Kidney Stones, Npfv-ir-Iyul Imani Batres, personally scribed for Dr. Garcia on 05/29/2023 15:19:03. . Documentation recorded by the Imani álvarez, accurately reflects the services(s) I performed and [...] Dipstick: Negative (more content not included)... Normal [facility] Comment on above: Result Comment: Elec tronically Signed By: Jose GARCIA MD\.br\Date and Time Signed: 05/29/23 15:21 EST\.br\Electronically Co-Signed By: Imani Renae.jennifer\Date and Time Co-Signed: 05/29/23 15:19 EST Gastroenterology [...] with voice recognition artificial intelligence software, specifically [employer] (FIG), [employer] and or [employer]. Substitutions may have occurred due to the inherent limitations of voice recognition and artificial intelligence software. ATTESTATION: Documentation services were performed after patient or guardian consented to allow [employer] to record this visit. DELVIN aerotriangulation specialist and provider reviewed before signing. DELVIN: Prerna Martinez/Pasted by Ana Rosa Iglesias. Follow-up No qualifying [...] H/O: penic (more content not included)... Normal [facility] Comment on above: Result Comment: Elec tronically Signed By: Ana Rosa Iglesias\.br\Date and Time Signed: 02/02/23 15:48 EDT\.br\Electronically Co-Signed By: BILL FELIX, Ignacia\.br\Date and Time Co-Signed: 02/06/23 14:00 EDT Calprotectin, Fecalon 2022 Calprotectin (Stl) [Mass/Mass] 87 mcg/gm Invalid Interpretation Code 0-120 [facility] Comment on above: Result Comment: Conc entration Interpretation Follow-Up < 5 - 50 ug/g Normal None >50 -120 ug/g Borderline Re-evaluate in 4-6 weeks >120 ug/g Abnormal Repeat as clinically indicated Performed at: [facility] [id number] MD Kody Hayes Performed By: #### 1 [id number] ####[facility] [address] [place] [address] Ambulatory Visit Summaryon 0 02-02-2023 Ambulatory Visit Summary SAHUSTACEY :1975 Visit Date:02/02/2023 Ambulatory Visit Instructions Your [...] FELIX, Jose Palafox Where: [facility] Jatinder Normal [facility] Auto Diffon 02-01-2023 Basophils/100 WBC (Bld) 2.7 % High 0.0-2.0 [facility] Comment on above: Order Comment: Order Added by Discern Expert. Performed By: #### 2 131366, 6591402, 9149863, 09678125, 2615543 ####[facility] [address] [place] [address] Basophils/Leukocytes Auto (Bld) [Pure # fraction] 0.2 E9/L Normal 0.0-0.2 [facility] Comment on above: Order Comment: Order Added by Discern Expert. Performed By: #### 2 910368, 0261898, 0972183, 34231059, 4781179 ####[address] [address] Eosinophils/100 WBC (Bld) 8.5 % High 0.0-8.0 [facility] Comment on above: Order Comment: Order Added by Discern Expert. Performed By: #### 2 226667, 6225340, 3612198, 07054030, 2879502 ####[facility] [address] [place] [address] Eosinophils/Leukocyte s Auto (Bld) [Pure # fraction] 0.7 E9/L High 0.0-0.5 [facility] Comment on above: Order Comment: Order Added by Discern Expert. Performed By: #### 2 831852, 3893693, 4254464, 08497780, 6644919 ####[address] [place] [address] Lymphocytes/100 WBC (Bld) 34.8 % Normal 14.0-50.0 [facility] Comment on above: Order Comment: Order Added by Discern Expert. Performed By: #### 2 218058, 4112435, 2287709, 68543950, 8043332 ####[facility] [address] [address] Lymphocytes/Leukocyte s Auto (Bld) [Pure # fraction] 2.8 E9/L Normal 1.0-4.0 [facility] Comment on above: Order Comment: Order Added by Discern Expert. Performed By: #### 2 843351, 0934215, 3487138, 32604100, 7922792 ####[address] [address] Monocytes/100 WBC (Bld) 9.4 % Normal 4.0-14.0 [facility] Comment on above: Order Comment: Order Added by Discern Expert. Performed By: #### 2 607781, 0156531, 5986152, 70545466, 0453136 ####[address] [address] Monocytes/Leukocytes Auto (Bld) [Pure # fraction] 0.8 E9/L Normal 0.2-1.0 [facility] Comment on above: Order Comment: Order Added by Discern Expert. Performed By: #### 2 653128, 1166512, 6479011, 61826275, 4324885 ####[address] [address] Neutrophils/100 WBC (Bld) 44.6 % Normal 36.0-75.0 [facility] Comment on above: Order Comment: Order Added by Discern Expert. Performed By: #### 2 755762, 5758665, 7891225, 58715755, 3518132 ####[address] [address] Neutrophils/Leukocyte s Auto (Bld) [Pure # fraction] 3.5 E9/L Normal 2.0-7.5 [facility] Comment on above: Order Comment: Order Added by Discern Expert. Performed By: #### 2 742317, 6707346, 8848408, 72446275, 1049766 ####[address] [address] CBC w/ Auto Diffon 3 Erythrocyte distribution width (RBC) [Ratio] 13.6 % Normal 10.9-14.2 [facility] Comment on above: Performed By: #### 2 697961, 8409575, 2013793, 71723016, 0131281 ####[facility] [address] [place] [address] Hematocrit (Bld) [Volume fraction] 39.5 % Normal 34.0-46.0 [facility] Comment on above: Performed By: #### 2 035939, 6636760, 4474551, 49041244, 4947350 ####[facility] [address] [place] [address] Hemoglobin (Bld) [Mass/Vol] 13.3 g/dL Normal 12.0-16.0 [facility] Comment on above: Performed By: #### 2 814012, 3009976, 9029098, 94706806, 7972178 ####[place] [address] MCH (RBC) [Entitic mass] 29.1 pg Normal 27.0-34.0 [facility] Comment on above: Performed By: #### 2 292634, 4550136, 7701289, 95877306, 9284135 ####[facility] [address] [place] [address] MCHC (RBC) [Mass/Vol] 33.7 g/dL Normal 31.4-36.0 [facility] Comment on above: Performed By: #### 2 717752, 0776973, 3973712, 88276429, 1325536 ####[facility] [address] [place] [address] MCV (RBC) [Entitic vol] 86.4 fL Normal 80.0-100.0 [facility] Comment on above: Performed By: #### 2 145382, 4416639, 4375820, 47531243, 8688464 ####[facility] [address] [place] [address] Platelet mean volume (Bld) [Entitic vol] 8.9 fL Normal 6.4-10.8 [facility] Comment on above: Performed By: #### 2 160169, 3570227, 8023792, 59851612, 8516369 ####[facility] [address] [place] [address] Platelets (Bld) [#/Vol] 274.0 E9/L Normal 150.0-500.0 [facility] Comment on above: Performed By: #### 2 754750, 9084340, 2138358, 71202554, 8628303 ####[facility] [address] [place] [address] RBC (Bld) [#/Vol] 4.6 E12/L Normal 4.3-5.9 [facility] Comment on above: Performed By: #### 2 266219, 1504115, 6433072, 84764265, 6007652 ####[facility] [address] [place] [address] WBC corrected for nucl RBC Auto (Bld) [#/Vol] 8.0 E9/L Normal 4.0-11.0 [facility] Comment on above: Performed By: #### 2 101967, 4794672, 5288811, 20935072, 9636760 ####[facility] [address] [place] [address] CHEMISTRYOrdered By: SYSTEM SYSTEM on 02-01-2023 Albumin [...] 7.2 g/dL Normal 6.0 - 7.8 gm/dL [facility] Remisol Sodium [Moles/Vol] 139 mmol/L Normal 135 - 145 mmol/L [facility] Remisol Urea nitrogen [Mass/Vol] 15 mg/dL Normal 5 - 21 mg/dL [facility] Remisol Urea nitrogen/Creatinine [Mass ratio] 17 mg/mg Normal 10 - 20 [facility] Remisol CMPon 02-01-2023 Albumin [Mass/Vol] 4.0 g/dL Normal 3.3-5.0 [facility] Comment on above: Performed By: #### 2 963286, 0454064, 3860529, 37749481, 2905029 ####[address] [place] [address] Albumin/Globulin (S) [Mass conc ratio] 1.2 Normal 1.1-2.2 [facility] Comment on above: Performed By: #### 2 826315, 4071173, 5316760, 68224633, 3227602 ####[facility] [address] [place] [address] ALP [Catalytic activity/Vol] 53 Int._Unit/L Normal 21-98 [facility] Comment on above: Performed By: #### 2 917469, 6792676, 9992311, 97091852, 6918840 ####[facility] [address] [place] [address] ALT No additional P-5'-P [Catalytic activity/Vol] 18 Int._Unit/L Normal 6-46 [facility] Comment on above: Performed By: #### 2 863857, 8315149, 5918654, 30481042, 8839613 ####[facility] [address] [place] [address] Anion gap [Moles/Vol] 13 mmol/L Normal 6-16 [facility] Comment on above: Performed By: #### 2 848280, 5852583, 3554954, 12122026, 7302513 ####[facility] [address] [place] [address] AST [Catalytic activity/Vol] 18 Int._Unit/L Normal 5-43 [facility] Comment on above: Performed By: #### 2 230234, 9515901, 9397855, 92507972, 2565691 ####[facility] [address] [place] [address] Bilirubin [Mass/Vol] 0.4 mg/dL Normal 0.0-1.1 [facility] Comment on above: Performed By: #### 2 275985, 5231323, 3235716, 83481684, 3697894 ####[facility] [address] [place] [address] Calcium [Mass/Vol] 9.1 mg/dL Normal 8.9-11.1 [facility] Comment on above: Performed By: #### 2 245286, 3925872, 6214338, 03584723, 5643993 ####[facility] [address] [place] [address] Chloride [Moles/Vol] 106 mmol/L Normal 101-111 [facility] Comment on above: Performed By: #### 2 265963, 2576028, 9036180, 20699127, 5224175 ####[facility] [address] [place] [address] CO2 [Moles/Vol] 24 mmol/L Normal 21-31 [facility] Comment on above: Performed By: #### 2 925344, 6487079, 6868567, 37301556, 8265877 ####[facility] [address] [place] [address] Creatinine [Mass/Vol] 0.9 mg/dL Normal 0.5-1.3 [facility] Comment on above: Performed By: #### 2 596674, 4190628, 2094265, 89550526, 2396284 ####[facility] [address] [place] [address] Globulin (S) [Mass/Vol] 3.2 g/dL Normal 1.4-4.0 [facility] Comment on above: Performed By: #### 2 215374, 5542240, 9168594, 87108031, 1977925 ####[facility] [address] [place] [address] Glucose [Mass/Vol] 99 mg/dL Normal 55-199 [facility] Comment on above: Result Comment: If t his glucose result represents a fasting glucose, interpretation should refer to the following reference range: 55-99 mg/dL Performed By: #### 2 411460, 3329125, 1815143, 40016458, 2359931 ####[facility] [address] [place] [address] Potassium [Moles/Vol] 3.9 mmol/L Normal 3.5-5.3 [facility] Comment on above: Performed By: #### 2 979030, 5197791, 1710627, 68773824, 7668314 ####[facility] [address] [place] [address] Protein [Mass/Vol] 7.2 g/dL Normal 6.0-7.8 [facility] Comment on above: Performed By: #### 2 498574, 2352001, 4974396, 84321241, 4266389 ####[facility] [address] [place] [address] Sodium [Moles/Vol] 139 mmol/L Normal 135-145 [facility] Comment on above: Performed By: #### 2 871385, 7489066, 6658413, 28033279, 4265844 ####[facility] [address] [place] [address] Urea nitrogen [Mass/Vol] 15 mg/dL Normal 5-21 [facility] Comment on above: Performed By: #### 2 511197, 4483814, 6056860, 31498196, 4950491 ####[facility] [address] [place] [address] Urea nitrogen/Creatinine [Mass ratio] 17 No Units Normal 10-20 [facility] Comment on above: Performed By: #### 2 812999, 2849457, 9882666, 72504234, 1992806 ####[facility] [address] [place] [address] CRPon 02-01-2023 CRP [Mass/Vol] 0.7 mg/dL Normal <=1.9 [facility] Comment on above: Performed By: #### 2 841886, 8620951, 6286032, 72924539, 2607272 ####[facility] [address] [place] [address] Consent for Treatmenton Consent for Treatment [id number] #1.00CD:127 Normal [facility] HEMATOLOGYOrdered By: SYSTEM SYSTEM on 02-01-2023 [...] 8.9 fL Normal 6.4 - 10.8 fL [facility]eAuto[facility] Platelets (Bld) [#/Vol] 274.0 E9/L Normal 150.0 - 500.0 E9/L [facility] RBC (Bld) [#/Vol] 4.6 E12/L Normal 4.3 - 5.9 E12/L [facility] WBC corrected for nucl RBC Auto (Bld) [#/Vol] 8.0 E9/L Normal 4.0 - 11.0 E9/L [facility] eGFRon 02-01-2023 GFR/1.73 sq M.predicted among non-blacks MDRD (S/P/Bld) [Vol rate/Area] 80 mL/min/1.73 m2 Normal >=59 [facility] Comment on above: Order Comment: Order added by Discern Expert. Result Comment: Seo Manager gail kidney disease could be indicated at eGFR's of less than 60 mL/min/1.73m2. Kidney failure is indicated at less than 15 mL/min/1.73m2. Performed By: #### 2 914990, 5011166, 3305166, 24492467, 9261195 ####[facility] [address] [place] [address] XR Abdomen 1 Viewon 01-07-20 23 XR [...] mGy = na DAP = na Normal [facility] Consent for Treatmenton 12-24 Consent for Treatment [id number] #1.00CD:127 Normal [facility] Outside Colonoscopyon 2022 Outside Colonoscopy [id number] #2.00CD:127 Normal [facility] CT Abdomen/Pelvis w/contrast (enterography)on 12-09-2022 CT [...] Oral contrast amount in ml's: 1450 Normal [facility] Consent for Treatmenton 11-24 Consent for Treatment [id number] 30 [id number] #1.00CD:127 Normal [facility] ECHOCARDIO M/2D COMPLETEon 0 11-22-2022 ECHOCARDIO M/2D COMPLETE Patient: STACEY SAHU Exam Date: 11/22/2022 : 1975 Gender:F Ordering : [facility] Admission #: [id number] Family : Order #: [id number] CLICK HERE TO VIEW EXAM ECHOCARDIOGRAM REPORT [...] M.D. on 11/22/2022 at 17:44 Normal [facility] THYROID FN ASP BXon 10-28 THYROID FN ASP BX Begin Addendum #1 COLLECTED DATE/TIME: 10/18/2022 13:19 EDT Final Diagnosis Report for [facility], [place] (A/B) SOFT TISSUE MASS CEPHALAD TO THYROID; FINE NEEDLE ASPIRATION: -ATYPIA OF UNDETERMINED SIGNIFICANCE. -CYST CONTENT. NOTE: Sparsely cellular aspirate compromised of follicular cells with architectural atypia. Molecular testing or a repeat aspirate may be helpful if clinically indicated. The final diagnosis is based on a microscopic exam of wholesale representative sections. 10/25/[address] Caceres. [...] (FNA). 2. Pathology results are pending. Normal [facility] XR KUB 1 VIEWon 10-27-2022 [...] PAULETTE GALVAN Date: 2022-10-27 07:19 Normal [facility] CT NECK ST W CONon CT [...] PREET RODRIGEZ Date: 2022-10-05 08:22 Normal [facility] CARDIAC DENZEL ADMITon 023 CK [Catalytic activity/Vol] 149 U/L Normal 26-192 [facility] Comment on above: Performed By: #### C MADM, LIPA, CMP ####[facility] [address] [place] [address]DrMaribel Iverson CK.MB [Mass/Vol] 1.51 ng/mL Normal <=3.[address] [facility] Comment on above: Performed By: #### C MADM, LIPA, CMP ####[facility] [address] [place] [address]DrMaribel Iverson HSTROP 4.1 pg/mL Normal 4.0-51.3 [facility] Comment on above: Result Comment: CUT- OFF POINTS HAVE BEEN ESTABLISHED BASED ON THE FOURTH UNIVERSAL DEFINITIONS OF MYOCARDIAL INFARCTION. THE UPPER REFERENCE LIMIT (URL) OF TROPONIN, DEFINED THE 99TH PERCENTILE OF cTnI DISTRIBUTION IN A REFERENCE POPULATION, HAS BEEN CONFIRMED THE DECISION THRESHOLD FOR MO DIAGNOSIS. Performed By: #### C MADM, LIPA, CMP ####[facility] [address] [place] [address]Dr. Nita Iverson ARIES 47 ng/mL Normal 9-82 [facility] Comment on above: Performed By: #### C MADM, LIPA, CMP ####[facility] [address] [place] [id number]. Nita Iverson CBC AUTO DIFFon 09-21-2022 BASO # 0.1 103/ul Normal 0.0-0.1 [facility] Comment on above: Performed By: #### C BC #### [facility] [address] [place] [address] Dr. Nita Iverson Basophils/100 WBC (Bld) 0.8 % Normal 0.2-2.0 [facility] Comment on above: Performed By: #### C BC #### [facility] [address] [address] [address] Nita Iverson EO # 0.7 103/ul Normal 0.0-0.7 [facility] Comment on above: Performed By: #### C BC #### [facility] [address] [place] [address] Dr. Nita Iverson Eosinophils/100 WBC (Bld) 7.1 % Critically high 0.9-7.0 [facility] Comment on above: Performed By: #### C BC #### [facility] [address] [place] [address] Dr. Nita Iverson Erythrocyte distribution width (RBC) [Ratio] 12.3 % Normal 11.0-15.0 [facility] Comment on above: Performed By: #### C BC #### [facility] [address] [place] [address] Dr. Nita Iverson Hematocrit (Bld) [Volume fraction] 40.1 % Normal 36.0-48.0 [facility] Comment on above: Performed By: #### C BC #### [facility] [address] [place] [address] Dr. Nita Iverson Hemoglobin (Bld) [Mass/Vol] 13.6 g/dL Normal 12.0-16.0 [facility] Comment on above: Performed By: #### C BC #### [facility] [address] [place] [address] Dr. Nita Iverson IG # 0.02 10e3/ul Normal 0.00-0.03 [facility] Comment on above: Performed By: #### C BC #### [facility] [address] [place] [address] Dr. Nita Iverson IG % 0.2 % Normal 0.0-0.5 [facility] Comment on above: Performed By: #### C BC #### [facility] [address] [place] [address] Dr. Nita Iverson LYMPH # 3.0 103/ul Normal 1.2-3.8 [facility] Comment on above: Performed By: #### C BC #### [facility] [address] [place] [address] Dr. Nita Iverson Lymphocytes/100 WBC (Bld) 30.2 % Normal 20.5-60.0 [facility] Comment on above: Performed By: #### C BC #### [facility] [address] [place] [address] Dr. Nita Iverson MANUAL DIFF REQ NO Normal [facility] Comment on above: Performed By: #### C BC #### [facility] [address] [place] [address] Dr. Nita Iverson MCH (RBC) [Entitic mass] 30.0 pg Normal 26.7-34.0 [facility] Comment on above: Performed By: #### C BC #### [facility] [address] [place] [address] Dr. Nita Iverson MCHC (RBC) [Mass/Vol] 33.9 g/dL Normal 29.9-35.2 [facility] Comment on above: Performed By: #### C BC #### [facility] [address] [place] [address] Dr. Nita Iverson MCV (RBC) [Entitic vol] 88.3 fL Normal 81.0-99.0 [facility] Comment on above: Performed By: #### C BC #### [facility] [address] [place] [address] Dr. Nita Iverson MONO # 0.8 103/ul Normal 0.3-0.8 [facility] Comment on above: Performed By: #### C BC #### [facility] [address] [place] [address] Dr. Nita Iverson Monocytes/100 WBC (Bld) 7.8 % Normal 1.7-12.0 [facility] Comment on above: Performed By: #### C BC #### [facility] [address] [place] [address] Dr. Nita Iverson NEUT # 5.4 103/ul Normal 1.4-6.5 [facility] Comment on above: Performed By: #### C BC #### [facility] [address] [place] [address] Dr. Nita Iverson Neutrophils/100 WBC (Bld) 53.9 % Normal 43.0-75.0 [facility] Comment on above: Performed By: #### C BC #### [facility] [address] [address] [address] Nita Iverson Platelet mean volume (Bld) [Entitic vol] 10.4 fL Normal 9.5-13.5 [facility] Comment on above: Performed By: #### C BC #### [facility] [address] [place] [address] Dr. Nita Iverson PLT 270 103/ul Normal 150-450 [facility] Comment on above: Performed By: #### C BC #### [facility] [address] [place] [address] Dr. Nita Iverson RBC 4.54 106/ul Normal 4.20-5.40 [facility] Comment on above: Performed By: #### C BC #### [facility] [address] [place] [address] Dr. Nita Iverson WBC 10.0 103/ul Normal 4.0-11.0 [facility] Comment on above: Performed By: #### C BC #### [facility] [address] [place] [address] ABD/PELV W CONon [...] MISTY SPEARS Date: 2022-09-21 21:41 Normal [facility] ER URINE PROFILEon 3 Bilirubin Ql (U) Negative Normal NEGATIVE [facility] Comment on above: Performed By: #### U MICRO, ERUR, PREGU ####[facility] [address] [place] [address]Dr. Nita Iverson Clarity (U) CLEAR Normal CLEAR [facility] Comment on above: Performed By: #### U MICRO, ERUR, PREGU ####[facility] [address] [place] [address]Dr. Nita Iverson Color (U) LT. YELLOW Normal YELLOW [facility] Comment on above: Performed By: #### U MICRO, ERUR, PREGU ####[facility] [address] [place] [address]Dr. Nita Iverson ERUAHD A micrscopic examination will be performed if indicated. Normal [facility] Comment on above: Performed By: #### U MICRO, ERUR, PREGU ####[facility] [address] [place] [address]Dr. Nita Iverson Glucose Ql (U) Negative Normal NEGATIVE [facility] Comment on above: Performed By: #### U MICRO, ERUR, PREGU ####[facility] [address] [place] [address]Dr. Nita Iverson Hemoglobin Ql (U) LARGE Abnormal NEGATIVE [facility] Comment on above: Performed By: #### U MICRO, ERUR, PREGU ####[facility] [address] [place] [address]Dr. Nita Iverson Ketones Ql (U) Negative Normal NEGATIVE [facility] Comment on above: Performed By: #### U MICRO, ERUR, PREGU ####[facility] [address] [place] [address]Dr. Janniejennifer Iverson LEUKOCYTES Negative Normal NEGATIVE [facility] Comment on above: Performed By: #### U MICRO, ERUR, PREGU ####[facility] [address] [place] [address]Dr. Nita Kishor Nitrite Ql (U) Negative Normal NEGATIVE [facility] Comment on above: Performed By: #### U MICRO, ERUR, PREGU ####[facility] [address] [place] [address]Dr. Nita Iverson pH (U) 6.5 [pH] Normal 5-9 [facility] Comment on above: Performed By: #### U MICRO, ERUR, PREGU ####[facility] [address] [place], [place] [address]Dr. Janniejennifer Iverson SPEC GRAVITY 1.020 Normal 1.005-<=1.02 5 [facility] Comment on above: Performed By: #### U MICRO, ERUR, PREGU ####[facility] [address] [place], [place] [address]Dr. Nita Iverson UA PROTEIN Negative Normal NEGATIVE/ TRACE [facility] Comment on above: Performed By: #### U MICRO, ERUR, PREGU ####[facility] [address] [place] [address]Dr. Nita Iverson UR MICRO IND INDICATED Normal [facility] Comment on above: Performed By: #### U MICRO, ERUR, PREGU ####[facility] [address] [place] [address]Dr. Nita Iverson Urobilinogen Qn (U) 1.0 {Senait'U}/dL Normal 0.2 - 1. 0 [facility] Comment on above: Performed By: #### U MICRO, ERUR, PREGU ####[facility] [address] [place] [address]Dr. Nita Iverson LIPASEon 09-21-2022 Lipase [Catalytic activity/Vol] 89.0 U/L Normal 73.0-393.0 [facility] Comment on above: Performed By: #### C MADM, LIPA, CMP ####[facility] [address] [place] [phone] Iverson URon 09-21-2022 , QUAL Negative Normal NEGATIVE [facility] Comment on above: Performed By: #### U MICRO, ERUR, PREGU ####[facility] [address] [place] [address]DrMaribel Iverson PROF 14(COMP METB)on 023 Albumin [Mass/Vol] 3.5 g/dL Normal 3.4-5.0 [facility] Comment on above: Performed By: #### C MADM, LIPA, CMP #### [facility] [address] [address] [address] Nita Iverson Albumin/Globulin [Mass ratio] 1.0 {ratio} Normal [facility] Comment on above: Performed By: #### C MADM, LIPA, CMP #### [facility] [address] [address] [address] Nita Iverson ALP [Catalytic activity/Vol] 67 U/L Normal 46-116 [facility] Comment on above: Performed By: #### C MADM, LIPA, CMP #### [facility] [address] [address] [address] Nita Iverson ALT [Catalytic activity/Vol] 30 U/L Normal 14-59 [facility] Comment on above: Performed By: #### C MADM, LIPA, CMP #### [facility] [address] [address] [address] Nita Iverson Anion gap [Moles/Vol] 11.8 mmol/L Normal [facility] Comment on above: Performed By: #### C MADM, LIPA, CMP #### [facility] [address] [address] [address] Nita Iverson AST [Catalytic activity/Vol] 25 U/L Normal 15-37 [facility] Comment on above: Performed By: #### C MADM, LIPA, CMP #### [facility] [address] [address] [address] Nita Iverson Bilirubin [Mass/Vol] 0.3 mg/dL Normal 0.2-1.0 [facility] Comment on above: Performed By: #### C MADM, LIPA, CMP #### [facility] [address] [place] [address] Dr. Nita Iverson Calcium [Mass/Vol] 9.2 mg/dL Normal 8.5-10.1 [facility] Comment on above: Performed By: #### C MADM, LIPA, CMP #### [facility] [address] [address] [address] Nita Iverson Chloride [Moles/Vol] 106 mmol/L Normal 98-107 [facility] Comment on above: Performed By: #### C MADM, LIPA, CMP #### [facility] [address] [place] [address] Dr. Nita Iverson CO2 [Moles/Vol] 28.7 mmol/L Normal 21.0-32.[address] [facility] Comment on above: Performed By: #### C MADM, LIPA, CMP #### [facility] [address] [place] [address] Dr. Nita Iverson Creatinine [Mass/Vol] 0.81 mg/dL Normal 0.55-1.02 [facility] Comment on above: Performed By: #### C MADM, LIPA, CMP #### [facility] [address] [place] [address] Dr. Nita Iverson EGFR-AF IRISH >60 Normal >=[address] [facility] Comment on above: Performed By: #### C MADM, LIPA, CMP #### [facility] [address] [place] [address] Dr. Nita Iverson EGFR-NON AF IRISH >60 Normal >=60 [facility] Comment on above: Performed By: #### C SHIVANI DENSON, CMP #### [facility] [address] [address] [address] Nita Iverson Globulin (S) [Mass/Vol] 3.5 g/dL Normal [facility] Comment on above: Performed By: #### C SHIVANI DESNON, CMP #### [facility] [address] [address] [address] Nita Iverson Glucose [Mass/Vol] 106 mg/dL Normal 74-106 [facility] Comment on above: Performed By: #### C SHIVANI DENSON, CMP #### [facility] [address] [address] [address] Nita Iverson Potassium [Moles/Vol] 4.5 mmol/L Normal 3.5-5.1 [facility] Comment on above: Performed By: #### C SHIVANI DENSON, CMP #### [facility] [address] [address] [address] Nita Iverson Protein [Mass/Vol] 7.0 g/dL Normal 6.4-8.2 [facility] Comment on above: Performed By: #### C SHIVANI DENSON, CMP #### [facility] [address] [address] [address] Nita Iverson Sodium [Moles/Vol] 142 mmol/L Normal 136-145 [facility] Comment on above: Performed By: #### C JANETH DENSONA, CMP #### [facility] [address] [address] [address] Nita Iverson Urea nitrogen [Mass/Vol] 12.0 mg/dL Normal 7.0-18.0 [facility] Comment on above: Performed By: #### C JANETH DENSONA, CMP #### [facility] [address] [address] [address] Nita Iverson Urea nitrogen/Creatinine [Mass ratio] 14.8 mg/mg Normal [facility] Comment on above: Performed By: #### C MADM, LIPA, CMP #### [facility] [address] [place], [place] [address] Dr. Nita Iverson URINE MICROSCOPIC ONLYon BACTERIA NONE SEEN Normal NONE SEEN [facility] Comment on above: Performed By: #### U MICRO, ERUR, PREGU ####[facility] [address] [place] [address]Dr. Nita Iverson Bacteria identified Cx Nom (U) NOT INDICATED Normal [facility] Comment on above: Performed By: #### U MICRO, ERUR, PREGU ####[facility] [address] [place] [address]Dr. Nita Iverson CAST NONE SEEN Normal NONE SEEN [facility] Comment on above: Performed By: #### U MICRO, ERUR, PREGU ####[facility] [address] [place] [address]Dr. Nita Iverson Crystals LM Nom (Urine sed) NONE SEEN Normal NONE SEEN [facility] Comment on above: Performed By: #### U MICRO, ERUR, PREGU ####[facility] [address] [place] [address]Dr. Nita Iverson Epithelial cells LM Ql (Urine sed) RARE Normal NONE SEEN /RARE [facility] Comment on above: Performed By: #### U MICRO, ERUR, PREGU ####[facility] [address] [place] [address]Dr. Nita Iverson MUCOUS NONE SEEN Normal NONE SEEN [facility] Comment on above: Performed By: #### U MICRO, ERUR, PREGU ####[facility] [address] [place] [address]Dr. Nita Iverson RBC 20-50 Abnormal 0-2 [facility] Comment on above: Performed By: #### U MICRO, ERUR, PREGU ####[facility] [address] [place] [address]Dr. Nita Iverson WBC 2-5 Abnormal NONE SEEN [facility] Comment on above: Performed By: #### U MICRO, ERUR, PREGU ####[facility] [address] [place], [place] [address]Ev. Nita Iverson US THYROIDon 09-06-2022 US THYROID [...] PREET RODRIGEZ Date: 2022-09-06 20:19 Normal [facility] MRI HIP RT WO CONon 08-19-19 23 MRI HIP RT WO CON EXAM: MRI HIP RT WO CON HISTORY: Right hip pain COMPARISON: X-rays 07/07/2022 TECHNIQUE: Axial and coronal large cnikp-xt-wajv sequencing through the pelvis and both hips. Small lwxms-ia-dayb coronal, sagittal and axial sequencing through the [...] at approximately the 11:00 position (coronal small zrisv-nz-pony 14). The remainder of the labrum exhibits no gross irregularity. The left acetabulum is normal. The bilateral femoral head and acetabular cartilage exhibits no chondral or osteochondral irregularity. The pubic symphysis and sacroiliac joints are normal. Thickening and interstitial edema of the right gluteus medius tendon insertion to the greater trochanter (coronal small xzkou-zu-xpkh 13 and axial large gsszp-kg-qreb 23). Mild amount of adjacent edema. No abnormal bursal fluid collection. Questionable mild thickening and interstitial edema of the left gluteus minimus tendon (coronal large jvklh-bd-gcej 17 and axial large mnqnx-dl-tjne 23 and to a lesser degree the gluteus medius tendon (coronal large wmjbf-uq-tyhs 21). No tendon tear, tendon tear or [...] by: PAULETTE PHIPPS Date: 2022-08-18 22:39 Normal [facility] PAP ACOG PANEL 2: 30 to 65on 08-11-2022 . . Normal [facility] Comment on above: Result Comment: Perf ormed at: WB Performed By: #### [id number] ####[facility] [address] [place] [phone] Iverson Age Gdln ACOG Testing 30-65 Normal [facility] Comment on above: Performed By: #### 4 [id number] ####[facility] [address] [place] [phone] Iverson DIAGNOSIS: Comment Normal [facility] Comment on above: Result Comment: NEGA TIVE FOR INTRAEPITHELIAL LESION OR MALIGNANCY. Performed at: WB Performed By: #### 4 [id number] ####[facility] [address] [place] [phone]. Nita Iverson HPV Aptima Negative Normal Negative [facility] Comment on above: Result Comment: This nucleic acid amplification test detects fourteen high-risk HPV types (16,18,31,33,35,39,45,51,52,56,58,59,66,68) without differentiation. Performed at: =G Performed By: #### 4 [id number] ####[facility] [address] [place] [phone]. Nita Iverson HPV Genotype Reflex Comment Normal [facility] Comment on above: Result Comment: Crit eria not met, HPV Genotype not performed. Performed at: WB Performed By: #### 4 [id number] ####[facility] [address] [place], [place] [address]Dr. Nita Iverson Methodology: Comment Normal [facility] Comment on above: Result Comment: This liquid based ThinPrep(R) pap test was screened with the use of an image guided system. Performed at: WB Performed By: #### 4 [id number] ####[facility] [address] [place], [place] [address]Dr. Nita Iverson Note: Comment Normal [facility] Comment on above: Result Comment: The Pap smear is a screening test designed to aid in the detection of premalignant and malignant conditions of the uterine cervix. It is not a diagnostic procedure and should not be used as the sole means of detecting cervical cancer. Both false-positive and false-negative reports do occur. . Performed at: WB Performed By: #### [id number] ####[facility] [address] [place] [phone]. Nita Iverson Performed by: Comment Normal [facility] Comment on above: Result Comment: Jordana Pruett, Varnish Finisher (ASCP) Performed at: WB Performed By: #### [id number] ####[facility] [address] [place] [phone]. Nita Iverson Specimen adequacy: Comment Normal [facility] Comment on above: Result Comment: Sati sfactory for evaluation. No endocervical component is identified. Performed at: WB Performed By: #### 4 [id number] ####[facility] [address] [place], [place] [address]LtMaribel Iverson US PELVIS AND TRANSVAGon US PELVIS [...] by: PAULETTE GALVAN Date: 2022-06-06 17:51 Normal [facility] CT ABD/PELV WO W CONon 04-25 [...] by: PREET RODRIGEZ Date: 2022-04-25 08:09 Normal [facility] RENAL W_WO PHARMon 2021 [place] RENAL W_WO PHARM EXAMINATION: [place] RENAL W_WO PHARM HISTORY: Kidney stone COMPARISON: [...] by: PAULETTE GALVAN Date: 2022-03-22 17:23 Normal [facility] XR KUB 1 VIEWon 03-22-2022 [...] by: PAULETTE GALVAN Date: 2022-03-22 17:57 Normal [facility] US THYROIDon 03-09-2022 US THYROID [...] IMPRESSION: Multinodular goiter, grossly stable TI-RADS: The [employer] TI-RADS committee's white paper recommendations for thyroid lesions classified as TR4 (moderately suspicious) are listed below: > 1.0 cm. Follow-up ultrasound in 1, 2, 3, and 5 years. > 1.5 cm. FNA. J. Am Rosendo Radiol 2017;14:587-595. Electronically authenticated by: PAULETTE GALVAN Date: 2022-03-09 07:07 Normal [facility] CT ABD/PELV WO W CONon [...] by: PREET RODRIGEZ Date: 2022-03-07 16:45 Normal [facility] MG MAMM SCREEN 3D GRACIE CADon 02-09-2022 MG MAMM SCREEN 3D GRACIE CAD Patient: STACEY SAHU Exam Date: 02/09/2022 : 1975 Gender:F Ordering : NIURKA RYAN [facility] Admission #: [id number] Family : Order #: [id number] CLICK HERE TO VIEW EXAM RADIOLOGY REPORT [...] colon cancer at age 56. LOCATION: [facility] BREAST COMPOSITION: Scattered areas fibroglandular density. [...] M.D. on 02/09/2022 at 14:53 Normal [facility] Covid-19 PCR (CVDTBH)on SARS-CoV-2 (COVID-19) RNA IZAIAH+probe Ql (Unsp spec) Detected Critically abnormal NOT DETECTED [facility] Comment on above: Result Comment: This test is not yet approved or cleared by the [place] FDA. When there are no FDA-approved or cleared tests available, and other criteria are met, FDA can make tests available under an emergency access mechanism called an Emergency Use Authorization (EUA). The EUA for this test is supported by the [place] of Health and Human Service's declaration that [...] longer be used). Performed By: #### C [facility] #### [facility] [address] [place] [address] Dr. Nita Iverson MR femur RT wo/w radhaon 12-04 MR femur RT wo/w con [facility] [place] [address] MRI Report Signed Patient: Stacey Sahu MR#: [id number] : 1975 Acct:[id number] Age/Sex: 46 / F ADM Date: 12/03/21 Loc: Room: Type: [facility] Attending Dr: Aelxis Saenz II, MD Ordering Provider: Alexis Saenz [...] Stock Jr., M.D.12/04/2021 3:45 PM Dictation Location: [place] [address] Transcribed By: [facility] 12/04/21 1545 Dictated By: Jorge Luis Stock Jr, MD 12/04/21 1519 Signed By: 12/04/21 1546 Normal [facility] XR femur RT 2V*on 11-17-2021 XR femur RT 2V* [facility] [place] [address] XRay Report Signed Patient: Stacey Sahu MR#: [id number] : 1975 Acct:[id number] Age/Sex: 46 / F ADM Date: 11/17/21 Loc: SOXD Room: Type: [facility] Attending Dr: Alexis Saenz II, MD Ordering Provider: Alexis Saenz MD Date of Service: 11/17/21 XR/XR hip RT min 2V(w/wo pelvis)*: Right hip pain ([id number]) XR/XR femur RT 2V*: Right hip pain [...] Vipin Iniguez M.D.11/17/2021 3:56 PM Dictation Location: [place] [address] Transcribed By: [facility] 11/17/21 1556 Dictated By: Vipin Iniguez DO 11/17/21 1553 Signed By: 11/17/21 1556 [facility] Large Joint Arthro/Inj: R gr eater trochanteric bursa [facility] Vital Signs Date Time Vital Sign Value Performing Clinician Facility 06-05-2024 10:47-0500 Diastolic blood pressure 85 mm[Hg] Pacc 3 Work Phone: [facility] 06-05-2024 10:47-0500 Systolic blood pressure 135 mm[Hg] Pacc 3 Work Phone: [facility] 06-05-2024 10:24-0500 Body height 152.4 cm Pacc 3 Work Phone: [facility] 06-05-2024 10:24-0500 Body mass index (BMI) [Ratio] 37.72 kg/m2 Pacc 3 Work Phone: [facility] 06-05-2024 10:24-0500 Body temperature 97.81 [degF] Pacc 3 Work Phone: [facility] 06-05-2024 10:24-0500 Body weight 87.6 kg Pacc 3 Work Phone: [facility] 06-05-2024 10:24-0500 Heart rate 86 /min Pacc 3 Work Phone: [facility] 06-05-2024 10:24-0500 Respiratory rate 16 /min Pacc 3 Work Phone: [facility] 06-05-2024 10:24-0500 SaO2% (BldA) [Mass fraction] 96 % Pacc 3 Work Phone: [facility] 05-29-2024 14:40-0500 Body height 152.4 cm Essie Shelby SHIPPING AND RECEIVING ASSOCIATE Work Phone: [facility] 05-29-2024 14:40-0500 Body mass index (BMI) [Ratio] 38.04 kg/m2 Essie Shelby SHIPPING AND RECEIVING ASSOCIATE Work Phone: [facility] 05-29-2024 14:40-0500 Body temperature 98.1 [degF] Essie Shelby SHIPPING AND RECEIVING ASSOCIATE Work Phone: [facility] 05-29-2024 14:40-0500 Body weight 88.36 kg Essie Shelby SHIPPING AND RECEIVING ASSOCIATE Work Phone: [facility] 05-29-2024 14:40-0500 Diastolic blood pressure 86 mm[Hg] Essie Shelby SHIPPING AND RECEIVING ASSOCIATE Work Phone: [facility] 05-29-2024 14:40-0500 Heart rate 94 /min Essie Shelby SHIPPING AND RECEIVING ASSOCIATE Work Phone: [facility] 05-29-2024 14:40-0500 Respiratory rate 18 /min Essie Shelby SHIPPING AND RECEIVING ASSOCIATE Work Phone: [facility] 05-29-2024 14:40-0500 SaO2% (BldA) [Mass fraction] 98 % Essie Ryan SHIPPING AND RECEIVING ASSOCIATE Work Phone: [facility] 05-29-2024 14:40-0500 Systolic blood pressure 110 mm[Hg] Essie Rolonjacob SHIPPING AND RECEIVING ASSOCIATE Work Phone: [facility] 05-17-2024 08:00-0500 Body height 152.4 cm Jeff Rossi MD Work Phone: [facility] 05-17-2024 08:00-0500 Body mass index (BMI) [Ratio] 38.24 kg/m2 Jeff Rossi MD Work Phone: [facility] 05-17-2024 08:00-0500 Body temperature 97.9 [degF] Jeff Rossi MD Work Phone: [facility] 05-17-2024 08:00-0500 Body weight 88.81 kg Jeff Rossi MD Work Phone: [facility] 05-06-2024 14:08-0500 Body height 152.4 cm Met 2 [facility] 05-06-2024 14:08-0500 Body mass index (BMI) [Ratio] 38.28 kg/m2 [facility] 2 [facility] 05-06-2024 14:08-0500 Body weight 88.91 kg [facility] 2 [facility] 04-19-2024 08:28-0400 Body height 152.4 cm Jeff Rossi MD Work Phone: [facility] 04-19-2024 08:28-0400 Body mass index (BMI) [Ratio] 38.24 kg/m2 Jeff Rossi MD Work Phone: [facility] 04-19-2024 08:28-0400 Body temperature 98.1 [degF] Jeff Rossi MD Work Phone: [facility] 04-19-2024 08:28-0400 Body weight 88.81 kg Jeff Rossi MD Work Phone: [facility] 04-10-2024 08:36-0400 Body height 152.4 cm Essie Aichholz SHIPPING AND RECEIVING ASSOCIATE Work Phone: [facility] 04-10-2024 08:36-0400 Body mass index (BMI) [Ratio] 38.16 kg/m2 Essie Aichholz SHIPPING AND RECEIVING ASSOCIATE Work Phone: [facility] 04-10-2024 08:36-0400 Body temperature 98.8 [degF] Essie Aichholz SHIPPING AND RECEIVING ASSOCIATE Work Phone: [facility] 04-10-2024 08:36-0400 Body weight 88.63 kg Essie Aichholz SHIPPING AND RECEIVING ASSOCIATE Work Phone: [facility] 04-10-2024 08:36-0400 Diastolic blood pressure 88 mm[Hg] Essie Aichholz SHIPPING AND RECEIVING ASSOCIATE Work Phone: [facility] 04-10-2024 08:36-0400 Heart rate 96 /min Essie Aichholz SHIPPING AND RECEIVING ASSOCIATE Work Phone: [facility] 04-10-2024 08:36-0400 Respiratory rate 18 /min Essie Aichholz SHIPPING AND RECEIVING ASSOCIATE Work Phone: [facility] 04-10-2024 08:36-0400 SaO2% (BldA) [Mass fraction] 98 % Essie Aichholz SHIPPING AND RECEIVING ASSOCIATE Work Phone: [facility] 04-10-2024 08:36-0400 Systolic blood pressure 120 mm[Hg] Essie Aichholz SHIPPING AND RECEIVING ASSOCIATE Work Phone: [facility] 11-28-2023 09:08-0400 Blood Pressure Location LESLIE JUNG [facility] 11-28-2023 09:08-0400 Diastolic blood pressure 84 mm[Hg] LESLIE JUNG [facility] 11-28-2023 09:08-0400 Heart rate 82 /min LESLIE JUNG [facility] 11-28-2023 09:08-0400 Respiratory rate 16 /min LESLIE JUNG [facility] 11-28-2023 09:08-0400 Systolic blood pressure 139 mm[Hg] LESLIE JUNG [facility] 09-12-2023 07:42-0400 Diastolic blood pressure 103 mm[Hg] Imani Albarranenberg HANDBAG FRAMER-TELEVISION TECHNICIAN Work Phone: [facility] 09-12-2023 07:42-0400 Heart rate 95 /min Imani Avisenberg HANDBAG FRAMER-TELEVISION TECHNICIAN Work Phone: [facility] 09-12-2023 07:42-0400 Respiratory rate 18 /min Imani Nienberg HANDBAG FRAMER-TELEVISION TECHNICIAN Work Phone: [facility] 09-12-2023 07:42-0400 SaO2% (BldA) [Mass fraction] 99 % Imani Nienberg HANDBAG FRAMER-TELEVISION TECHNICIAN Work Phone: [facility] 09-12-2023 07:42-0400 Systolic blood pressure 136 mm[Hg] Imani Avisenberg HANDBAG FRAMER-TELEVISION TECHNICIAN Work Phone: [facility] 06-28-2023 10:34-0500 Body height 149.9 cm Evans Verhoff PA-C Work Phone: [facility] 06-28-2023 10:34-0500 Body mass index (BMI) [Ratio] 38.78 kg/m2 Evans Verhoff PA-C Work Phone: [facility] 06-28-2023 10:34-0500 Body weight 87.09 kg Evans Verhoff PA-C Work Phone: [facility] 06-28-2023 10:34-0500 Diastolic blood pressure 107 mm[Hg] Evans Verhoff PA-C Work Phone: [facility] 06-28-2023 10:34-0500 Heart rate 93 /min Evans Verhoff PA-C Work Phone: [facility] 06-28-2023 10:34-0500 SaO2% (BldA) [Mass fraction] 97 % Evans Verhoff PA-C Work Phone: [facility] 06-28-2023 10:34-0500 Systolic blood pressure 139 mm[Hg] Evans Verhoff PA-C Work Phone: [facility] 05-29-2023 14:39-0500 Blood Pressure Location Jose GARCIA [facility] 05-29-2023 14:39-0500 Diastolic blood pressure 83 mm[Hg] Jose GARCIA [facility] 05-29-2023 14:39-0500 Heart rate 88 /min Josechamp GARCIA [facility] 05-29-2023 14:39-0500 Respiratory rate 16 /min Jose GARCIA [facility] 05-29-2023 14:39-0500 Systolic blood pressure 131 mm[Hg] Jose GARCIA [facility] 11-24-2022 13:48-0400 Diastolic blood pressure 106 mm[Hg] Beth SALAM [facility] 11-24-2022 13:48-0400 Mean blood pressure 121 mm[Hg] Beth SALAM [facility] 11-24-2022 13:48-0400 Systolic blood pressure 152 mm[Hg] Beth SALAM [facility] 11-24-2022 13:46-0400 Blood Pressure Location Beth SALAM [facility] 11-24-2022 13:46-0400 Diastolic blood pressure 118 mm[Hg] Beth SALAM [facility] 11-24-2022 13:46-0400 Heart rate 80 /min Beth SALAM [facility] 11-24-2022 13:46-0400 Respiratory rate 16 /min Beth SALAM [facility] 11-24-2022 13:46-0400 Systolic blood pressure 161 mm[Hg] Beth SALAM [facility] 04-26-2022 12:03-0400 Blood Pressure Location Jose GARCIA [facility] 04-26-2022 12:03-0400 Diastolic blood pressure 95 mm[Hg] Jose GARCIA [facility] 04-26-2022 12:03-0400 Heart rate 102 /min Jose GARCIA [facility] 04-26-2022 12:03-0400 Systolic blood pressure 141 mm[Hg] Jose GARCIA [facility] 02-21-2022 12:39-0400 Body weight 88.81 kg Shiraz Mendsheree DO Work Phone: [facility] 02-21-2022 12:39-0400 Diastolic blood pressure 85 mm[Hg] Shiraz Roy DO Work Phone: [facility] 02-21-2022 12:39-0400 Heart rate 76 /min Shiraz Roy DO Work Phone: [facility] 02-21-2022 12:39-0400 Systolic blood pressure 138 mm[Hg] Shiraz Roy DO Work Phone: [facility] 12-09-2021 09:00-0400 Body height 160.02 cm Alexis [place]ke[place] II Other [facility] Other 12-09-2021 09:00-0400 Body mass index (BMI) [Ratio] 34.47 kg/m2 Alexis Muske[place] II Other [facility] Other 12-09-2021 09:00-0400 Body weight 88.27 kg Alexis [place] II Other [facility] Other 11-17-2021 15:30-0400 Body height 160.02 cm Alexis [place] II Other [facility] Other 11-17-2021 15:30-0400 Body mass index (BMI) [Ratio] 32.41 kg/m2 Alexis Dany II Other [facility] Other 11-17-2021 15:30-0400 Body weight 83.01 kg Alexis [place] II Other [facility] Other Encounters Encounter Date Encounter Type Care Provider Facility Start: 06-05-2024 End: 06-05-2024 [facility] Start: 06-05-2024 End: 06-05-2024 ambulatory ESSIE RYAN Facility:[facility] Start: 06-05-2024 End: 06-05-2024 Anesthesia consultation [facility] 3 Work Phone: Pre Anesthesia Comment on above: Pre-op evaluation (P rimary Dx); NIRMALA (obstructive sleep apnea); Gastroesophageal reflux disease, unspecified whether esophagitis present; Pulmonary HTN (HCC); Other hyperlipidemia; BMI 37.0-37.9, adult Start: 06-05-2024 Encounter for other preprocedural examination ESSIE RYAN [facility] Start: 06-05-2024 End: 06-05-2024 Preprocedural examination done Pac 3 Work Phone: [facility] Work Phone: Start: 05-29-2024 End: 05-29-2024 Office outpatient visit 25 minutes Essie Ryan SHIPPING AND RECEIVING ASSOCIATE Work Phone: [facility] Comment on above: Bipolar 1 disorder ( CMS/HCC) (Primary Dx); NIRMALA (obstructive sleep apnea); PAH (pulmonary artery hypertension) (CMS/HCC); Chronic right hip pain; Morbid (severe) obesity due to excess calories (CMS/HCC); Anxiety; Chronic rhinitis; Body mass index (BMI) 38.0-38.9, adult Start: 05-29-2024 End: 05-29-2024 Bamboo flowsheet Essie Ryan SHIPPING AND RECEIVING ASSOCIATE Work Phone: [facility] Start: 05-29-2024 End: 05-29-2024 Bamboo flowsheet Essie yRan SHIPPING AND RECEIVING ASSOCIATE Work Phone: [facility] Start: 05-24-2024 End: 05-24-2024 Admission to same day surgery center Lois Mckeon MD Work Phone: Orthopaedics Comment on above: Schedule Surgery Start: 05-24-2024 End: 05-24-2024 ambulatory Lois Mckeon MD Work Phone: Orthopaedics Start: 05-17-2024 End: 05-17-2024 Office outpatient visit 15 minutes Jeff Rossi MD Work Phone: [facility] Comment on above: Obstructive sleep ap shanice (Primary Dx) Start: 05-17-2024 End: 05-17-2024 ambulatory JEFF ROSSI [facility] Start: 05-09-2024 End: 06-01-2024 Telephone encounter Jeff Rossi MD Work Phone: [facility] Comment on above: Question (See note) Start: 05-09-2024 End: 05-09-2024 [facility] Start: 05-09-2024 End: 05-09-2024 Evaluation and management of inpatient [facility] Start: 05-06-2024 End: 05-06-2024 Evaluation and management of [facility] Start: 05-02-2024 End: 05-06-2024 Admission to [facility] Phone Call Provider 2 [facility]-Ad[facility] Start: 04-19-2024 End: 04-19-2024 Telephone encounter Jeff Rossi MD Work Phone: [facility] Start: 04-19-2024 End: 04-19-2024 Office outpatient new 30 minutes Jeff Rossi MD Work Phone: [facility] Comment on above: NIRMALA (obstructive sle ep apnea) (Primary Dx) Start: 04-19-2024 End: 04-19-2024 ambulatory [facility] Start: 04-16-2024 End: 04-16-2024 ambulatory ESSIE FELY RYAN Facility:[facility] Start: 04-16-2024 End: 04-16-2024 Patient encounter procedure Lois Mckeon MD Work Phone: Orthopaedics Comment on above: Primary osteoarthrit is of right hip (Primary Dx); Status post right hip replacement Start: 04-10-2024 End: 04-10-2024 Bamboo flowsheet Essie Ryan SHIPPING AND RECEIVING ASSOCIATE Work Phone: [facility] Start: 04-10-2024 End: 04-10-2024 Bamboo flowsheet Essie Ryan SHIPPING AND RECEIVING ASSOCIATE Work Phone: [facility] Start: 04-10-2024 End: 04-10-2024 Office outpatient visit 25 minutes Essie Shelby SHIPPING AND RECEIVING ASSOCIATE Work Phone: [facility] Comment on above: Bipolar disorder, un specified (CMS/HCC) (Primary Dx); Neuritis of right median nerve; Neuritis of left median nerve; Morbid (severe) obesity due to excess calories (CMS/HCC); Body mass index (BMI) 38.0-38.9, adult; Anxiety; PAH (pulmonary artery hypertension) (CMS/HCC); Chronic rhinitis; Gastroesophageal reflux disease, unspecified whether esophagitis present; Needs flu shot Start: 04-10-2024 End: 04-10-2024 ambulatory ESSIE AICHHOLZ Not Available Start: 03-19-2024 End: 03-19-2024 Patient encounter procedure Lois Mckeon MD Work Phone: [facility] Comment on above: Pain of right hip (P rimary Dx); Primary osteoarthritis of right hip Start: 03-19-2024 End: 03-19-2024 ambulatory ESSIE RYAN Facility:[facility] Start: 03-19-2024 End: 03-19-2024 Subsequent hospital visit by physician [facility] 1 X[facility] Comment on above: Pain in right hip [M 25.551] Start: 03-18-2024 End: 03-22-2024 Telephone encounter Lois Mckeon MD Work Phone: [facility] Start: 03-06-2024 End: 03-06-2024 ambulatory TRINH EDUARDO [facility] Start: 03-06-2024 End: 03-06-2024 ambulatory TINO LASSITER [facility] Start: 02-29-2024 End: 02-29-2024 ambulatory ESSIE [...] Start: 11-28-2023 End: 11-28-2023 ambulatory LESLIE JUNG Facility:[facility] Start: 11-28-2023 End: 11-28-2023 Patient encounter procedure LESLIE JUNG [facility] Start: 11-23-2023 End: 11-24-2023 ambulatory KOLE FULTON Not Available Start: 11-21-2023 End: 11-22-2023 ambulatory JAMIE RANDHAWA Not Available Start: 11-16-2023 End: 11-16-2023 ambulatory JAMIE RANDHAWA Not Available Start: 11-08-2023 End: 11-08-2023 ambulatory LUNDBERG FAWWAD Not Available Start: 11-08-2023 End: 11-08-2023 ambulatory JANET MODI Not Available Start: 10-25-2023 End: 10-25-2023 ambulatory LUNDBERG FAWWAD Not Available Start: 09-28-2023 End: 09-28-2023 ambulatory ESSIE ROLONJACOB Not Available Start: 09-20-2023 Telephone encounter Nora FROST [facility] Start: 09-12-2023 End: 09-12-2023 ambulatory IMANI CHAN [facility] Start: 09-12-2023 End: 09-12-2023 Office outpatient visit 15 minutes Imani Chan HANDBAG FRAMER-TELEVISION TECHNICIAN Work Phone: [facility] Comment on above: Chronic right hip pa in (Primary Dx) Start: 09-06-2023 End: 09-06-2023 ambulatory NEDA CACERES Not Available Start: 09-01-2023 End: 09-02-2023 ambulatory PJ GANNON [facility] Start: 08-29-2023 End: 08-29-2023 ambulatory TINO LASSITER [facility] Start: 08-26-2023 End: 08-26-2023 ambulatory MARY Gonzalez FRANCES Not Available Start: 08-21-2023 End: 08-21-2023 ambulatory IMANI CHAN [facility] Start: 07-13-2023 End: 07-13-2023 ambulatory ESSIE AICHHOLZ Not Available Start: 07-11-2023 End: 07-11-2023 ambulatory Juliana Block Other [facility] Other Start: 07-11-2023 Office outpatient vi sit 25 minutes Juliana Block [facility] Start: 07-04-2023 End: 07-04-2023 ambulatory ESSIE KHADARZ Not Available Start: 06-28-2023 End: 06-28-2023 ambulatory EVANS Freeman [facility] Start: 06-28-2023 End: 06-28-2023 Office outpatient visit 15 minutes Evans ONEILL-C Work Phone: [facility] Comment on above: Lumbar radiculopathy (Primary Dx) Start: 05-29-2023 End: 05-29-2023 ambulatory Jose GARCIA Facility:[facility] Start: 05-29-2023 End: 05-29-2023 Patient encounter procedure Jose GARCIA [facility] Start: 05-10-2023 End: 05-10-2023 ambulatory NEDA CACERES Not Available Start: 02-02-2023 End: 02-02-2023 ambulatory Ignacia DELA CRUZ Facility:[facility] Start: 02-02-2023 End: 02-02-2023 ambulatory Beth SAL Facility:[facility] Start: 02-02-2023 End: 02-02-2023 Lab Drop off Ignacia KHAN [facility] Start: 02-01-2023 End: 02-01-2023 ambulatory Beth SALAM Facility:[facility] Start: 02-01-2023 End: 02-01-2023 Patient encounter procedure Beth SALAM [facility] Start: 01-05-2023 End: 01-05-2023 ambulatory Beth SALAM Facility:[facility] Start: 01-03-2023 End: 01-03-2023 ambulatory Beth SALAM Facility:CD:[id number] Start: 12-06-2022 End: 12-06-2022 ambulatory Beth SALAM Facility:[facility] Start: 12-06-2022 End: 12-06-2022 Patient encounter procedure Beth SALAM [facility] Start: 11-24-2022 End: 11-24-2022 Patient encounter procedure Beth SALAM [facility] Start: 11-22-2022 End: 11-23-2022 ambulatory CAN MONROE Facility:[facility] Start: 11-08-2022 ambulatory BYRON GARCIA . Facility:[facility] Start: 10-26-2022 End: 10-27-2022 ambulatory NIURKA RYAN Facility:[facility] Start: 10-18-2022 End: 10-18-[address] NEDA CACERES Facility:[facility] Start: 10-04-2022 End: 10-05-[address] NEDA CACERES Facility:[facility] Start: 09-21-2022 End: 09-22-2022 ambulatory EDNA MCRAE . Facility:[facility] Start: 09-06-2022 End: 09-07-[address] NEDA CACERES Facility:[facility] Start: 08-18-2022 End: 08-19-2022 ambulatory HSARONA JIMENEZ Facility:[facility] Start: 08-04-2022 End: 08-05-2022 ambulatory [...] encounter procedure Jose GARCIA [facility] [place] Start: 04-22-2022 End: 04-23-2022 ambulatory NIURKA RYAN Facility:[facility] Start: 03-29-2022 End: 03-30-[address] MARKO MORALES . Facility:[facility] Start: 03-22-2022 End: 03-23-2022 ambulatory NIURKA RYAN Facility:[facility] Start: 03-22-2022 End: 03-23-[address] MARKO MORALES . Facility:[facility] Start: 03-08-2022 End: 03-09-[address] NEDA CACERES Facility:[facility] Start: 03-08-2022 End: 03-08-2022 Patient encounter procedure Jose GARCIA [facility] Start: 03-07-2022 End: 03-08-2022 ambulatory [...] End: 01-05-2022 ambulatory Alexis Dany II Other [facility] Other Start: 01-05-2022 Telephone encounter Alexis [place] [facility] Start: 12-31-2021 End: 12-31-2021 Patient encounter procedure Jorge Luis Page DO Work Phone: Orthopaedics Comment on above: Trochanteric bursiti s of right hip (Primary Dx) Start: 12-09-2021 End: 12-09-2021 ambulatory Alexis [place] II Other [facility] Other Start: 12-09-2021 Office outpatient vi sit 25 minutes Alexis [place] II [facility] Start: 11-17-2021 End: 11-17-2021 ambulatory Alexis [place] II Other [facility] Other Start: 11-17-2021 Office outpatient ne w 45 minutes Alexis Dany II [facility] Start: 06-02-2017 End: 06-03-2017 Ambulatory DEFAULT PHYSICIAN Facility:[facility] Start: 05-15-2017 End: 05-16-2017 Ambulatory DEFAULT PHYSICIAN Facility:[facility] Start: 05-01-2017 End: 05-02-2017 Ambulatory DEFAULT PHYSICIAN Facility:[facility] Procedures Date Procedure Procedure Detail Performing Clinician Start: 06-05-2024 Ecg routine ecg w/le ast 12 lds i&r only Negrita Tejeda APRN.TELEVISION TECHNICIAN Work Phone: Start: 03-19-2024 Radex hip unilateral with pelvis 2-3 views Mayito Gifford PA-C Work Phone: Start: 08-17-2023 Mammography Essie cristina SHIPPING AND RECEIVING ASSOCIATE Work Phone: Start: 12-24-2022 Lobectomy of thyroid gland Jose GARCIA Start: 02-14-2022 Adult depression scr eening assessment Shiraz Roy DO Work Phone: Start: 12-31-2021 Arthrocentesis aspir &/inj major jt/bursa w/o us Jorge Luis R Kaylee DO Work Phone: Start: 12-15-2020 Colonoscopy Jorge Luis Mantilla deepak DO Work Phone: Hysterectomy Jose GARCIA Laparoscopy Jose GARCIA Other bilateral liga tion and division of fallopian tubes Jose GARCIA partial colectomy Jose LAUREN LANGLEY Tonsillectomy Jose GARCIA Plan of Treatment Date Care Activity Detail Author Start: 2036 HEPATITIS B (1 of 3 - Risk 3-dose series) HEPATITIS B (1 of 3 - Risk 3-dose series) [facility] Start: 05-17-2025 Adult BMI Screening Adult BMI Screen ing [facility] Start: 05-17-2025 Tobacco Screening Tobacco Screening [facility] Start: 05-09-2025 Adult BMI Screening Adult BMI Screen ing [facility] Start: 05-09-2025 Tobacco Screening Tobacco Screening [facility] Start: 04-19-2025 Adult BMI Screening Adult BMI Screen ing [facility] Start: 04-19-2025 Tobacco Screening Tobacco Screening [facility] Start: 09-11-2024 Tobacco Screening Tobacco Screening [facility] Start: 08-21-2024 Adult BMI Screening Adult BMI Screen ing [facility] Start: 08-17-2024 Screening for malign ant neoplasm of breast Mammogram [facility] Start: 08-07-2024 End: 08-07-2024 Patient encounter procedure 08/07/2024 8:15 AM EST Office Visit [facility] [address] [place] [address], [address] [place] [address] [place] [address] [place] [address] [address] [place] [address] [facility] Start: 08-01-2024 End: 08-01-2024 Admission to same day surgery center 08/01/2024 7:30 AM EST - 08/01/2024 11:30 AM EST Surgery [facility] [address] [place] [address] Jeff Rossi MD [address] [place] [address] [address] [place] [address] INSERTION STIMULATOR NERVE HYPOGLOSSAL - Inspire [50265 (CPT )] [facility] Comment on above: INSERTION STIMULATOR NERVE HYPOGLOSSAL - [employer]ire [16193 (CPT )] Start: 08-01-2024 End: 08-01-2024 INSERTION STIMULATOR NERVE HYPOGLOSSAL INSERTION STIMULATOR NERVE HYPOGLOSSAL Obstructive sleep apnea NIRMALA (obstructive sleep apnea) 08/01/2024 7:30 AM EST [facility] Start: 08-01-2024 Subsequent hospital visit by physician 08/01/2024 7:30 AM EST Hospital Encounter [facility] Surgery [address] [place] [address] [place] [address] [place] [address] [address] [place] [address] [facility] Surgery Start: 07-30-2024 End: 07-30-2024 Patient encounter procedure Radiology Comment on above: post op xray right h ip Surgical post op Start: 07-23-2024 End: 07-23-2024 Patient encounter procedure 07/23/2024 2:15 PM EST Procedure visit [facility] On [address] [address] [facility] On [facility] Start: 07-01-2024 End: 07-01-2024 Admission to same day surgery center 07/01/2024 4:32 PM EST - 07/01/2024 6:47 PM EST [facility] [address] [place] [address] Lois Mckeon MD [address] [place] [address] ARTHROPLASTY REPLACE JOINT TOTAL HIP [facility] Comment on above: ARTHROPLASTY REPLACE JOINT TOTAL HIP Start: 07-01-2024 End: 07-01-2024 Arthrp acetblr/prox fem prostc agrft/algrft ARTHROPLASTY REPLACE JOINT TOTAL HIP Primary osteoarthritis of right hip 07/01/2024 4:32 PM EST [facility] Start: 07-01-2024 Subsequent hospital visit by physician 07/01/2024 4:32 PM EST Hospital [facility] [address] [place] [address] Lois Mckeon MD [address] [place] [address] Primary osteoarthritis of right hip [M16.11] [facility] Comment on above: Primary osteoarthrit is of right hip [M16.11] Start: 06-28-2024 Adult BMI Screening Adult BMI Screen ing [facility] Start: 06-28-2024 Tobacco Screening Tobacco Screening [facility] Start: 06-05-2024 End: 09-04-2024 Basic metabolic 2000 panel - Serum or Plasma [facility] Comment on above: Expected: 06/05/2024 , Expires: 09/04/2024 Start: 06-05-2024 End: 09-04-2024 CBC W Auto Differential panel - Blood [facility] Work Phone: Comment on above: Expected: 06/05/2024 , Expires: 09/04/2024 Start: 06-05-2024 End: 09-04-2024 Ferritin [Mass/volume] in Serum or Plasma [facility] Comment on above: Expected: 06/05/2024 , Expires: 09/04/2024 Start: 06-05-2024 End: 09-04-2024 Iron and Iron binding capacity panel - Serum or Plasma [facility] Comment on above: Expected: 06/05/2024 , Expires: 09/04/2024 Start: 06-05-2024 End: 06-05-2024 Anesthesia consultation 06/05/2024 10:30 AM EST PAT Pre Anesthesia [address] [place] [address] ARTHROPLASTY REPLACE JOINT TOTAL HIP [3131] - Hip - Right Pre Anesthesia Comment on above: ARTHROPLASTY REPLACE JOINT TOTAL HIP [3131] - Hip - Right Start: 05-29-2024 End: 05-29-2024 Patient encounter procedure 05/29/2024 2:20 PM EST Office Visit [facility] [address] [place] [address] Essie Ryan, NETO [address] [place] [phone] NIRMALA (obstructive sleep apnea) (Primary Dx); PAH (pulmonary artery hypertension) (CMS/HCC); Chronic right hip pain; Morbid (severe) obesity due to excess calories (CMS/HCC); Bipolar 1 disorder (CMS/HCC); Anxiety [facility] Comment on above: NIRMALA (obstructive sle ep apnea) (Primary Dx); PAH (pulmonary artery hypertension) (CMS/HCC); Chronic right hip pain; Morbid (severe) obesity due to excess calories (CMS/HCC); Bipolar 1 disorder (CMS/HCC); Anxiety Start: 05-21-2024 End: 05-21-2024 Patient encounter procedure 05/21/2024 9:00 AM EST Office Visit [facility] [address] [place] [address] Essie Ryan, SHIPPING AND RECEIVING ASSOCIATE [address] [place] [phone] MISHA YO Start: 05-17-2024 End: 05-17-2024 Patient encounter procedure 05/17/2024 8:15 AM EST Office Visit [facility] [address] [place] [address] Jeff Rossi MD [address] [place] [address] [address] [place] [address] [facility] Start: 05-09-2024 End: 05-09-2024 Admission to same day surgery center 05/09/2024 10:30 AM EST - 05/09/2024 11:00 AM EST Surgery [facility] Surgery [address] [place] [address] Jeff Rossi MD [address] [place] [address] [address] [place] [id number] ENDOSCOPIC DIAGNOSTIC DRUG INDUCED SLEEP [89633 (CPT )] [facility] Comment on above: ENDOSCOPIC DIAGNOSTI C DRUG INDUCED SLEEP [74521 (CPT )] Start: 05-09-2024 Subsequent hospital visit by physician 05/09/2024 10:30 AM EST Hospital Encounter [facility] Surgery [address] [place] [address] Jeff Rossi MD [address] [place] [address] [address] [place] [address] [facility] Start: 05-09-2024 End: 05-09-2024 ENDOSCOPIC DIAGNOSTIC DRUG INDUCED SLEEP [facility] Start: 05-02-2024 End: 05-02-2024 Admission to establishment 05/02/2024 3:45 PM EST Support Visit [facility] On [place] [phone] [facility] On [facility] Start: 04-16-2024 End: 04-16-2024 Patient encounter procedure 04/16/2024 1:10 PM EDT Office Visit Orthopaedics [address] [place] [address] Lois Mckeon MD [address] [address] MRI follow up Orthopaedics Comment on above: MRI follow up Start: 04-10-2024 End: 04-10-2024 Patient encounter procedure 04/10/2024 8:40 AM EDT Office Visit [facility] [address] [place] [address] Essie Ryan NP [address] [place] [address] Arrived [facility] Comment on above: Arrived Start: 02-25-2024 Covid-19 Vaccine ( season) Covid-19 Vaccine ( season) [facility] Start: 02-25-2024 Influenza vaccination C [facility] Start: 12-15-2023 DIABETES SCREEN DIABETES SCREEN [facility] Start: 12-15-2023 Diabetes Screening Diabetes Screenin g [facility] Start: 08-30-2023 End: 08-30-2023 Patient encounter procedure 08/30/2023 8:15 AM EST Office Visit [facility] [address] [place] [phone] Evans Anderson PA-C [address] [place] [address] [facility] Start: 08-04-2023 Screening for malign ant neoplasm of breast Mammogram Screening [facility] Start: 02-24-2023 Influenza vaccination Influenza Vacc ine [facility] Start: 02-14-2023 Adult depression screening assessment DEPRESSION SCREENING [facility] Start: 02-24-2022 Influenza vaccination INFLUENZA (#1) [facility] Start: 12-15-2021 Colonoscopy COLONOSCOPY [facility] Start: 12-15-2021 COLORECTAL CANCER SCREENING COLORECTAL CANCER SCREENING [facility] Start: 12-15-2021 Screening for malign ant neoplasm of colon [facility] Start: 2021 COLOGUARD (FIT-DNA) COLOGUARD (FIT-D NA) [facility] Start: [address] COLONOGRAPHY [facility] Start: 2021 FECAL OCCULT BLOOD FECAL OCCULT BLOO D [facility] Start: 2021 Lipid panel Lipid Screening [facility] Start: 2021 LIPID SCREEN LIPID SCREEN [facility] Start: 2021 Screening for malign ant neoplasm of colon [facility] Start: 2021 SIGMOIDOSCOPY SIGMOIDOSCOPY [facility] Start: 2016 Mammography MAMMOGRAM [facility] Start: 2006 HPV TESTING HPV TESTING [facility] Start: 2006 Screening for malign ant neoplasm of cervix HPV/Cotest [facility] Start: 1997 PAP TESTING PAP TESTING [facility] Start: 1997 Screening for malign ant neoplasm of cervix [facility] Start: 1995 DTaP,Tdap and Td Vaccines (1 - Tdap) DTaP,Tdap and Td Vaccines (1 - Tdap) [facility] Start: 1995 HEPATITIS B (1 of 3 - Risk 3-dose series) HEPATITIS B (1 of 3 - Risk 3-dose series) [facility] Start: 1995 Hepatitis B Vaccine (1 of 3 - 19+ 3-dose series) Hepatitis B Vaccine (1 of 3 - 19+ 3-dose series) [facility] Start: 1995 Urine microalbumin profile [facility] Start: 1994 Adult BMI Follow Up Plan Adult BMI Follow Up Plan [facility] Start: 1994 Anxiety Screening Anxiety Screening [facility] Start: 1994 Depression Screening Depression Scre ening [facility] Start: 1994 HIV SCREENING HIV SCREENING [facility] Start: 1994 HIV screening HIV Screening [facility] Start: 1994 MMR (1 of 2 - Risk 2-dose series) MMR (1 of 2 - Risk 2-dose series) [facility] Start: 1988 Adult depression screening assessment DEPRESSION SCREENING [facility] Start: 1986 MENINGOCOCCAL B: Consider based on risk (1 of 4 - Increased Risk Bexsero 2-dose series) MENINGOCOCCAL B: Consider based on risk (1 of 4 - Increased Risk Bexsero 2-dose series) [facility] Start: 1977 HEPATITIS A (1 of 2 - Risk 2-dose series) HEPATITIS A (1 of 2 - Risk 2-dose series) [facility] Start: 1976 COVID-19 VACCINE (#1) COVID-19 VACCI NE (#1) [facility] ECG COMPLETE ECG COMPLETE ECG Routine Pre-op evaluation 06/05/2024 10:36 AM EST [facility] End: 04-18-2025 MR Hip - right WO contrast MRI HIP WO IVCON RIGHT Radiology Routine Pain of right hip 1 Occurrences starting 03/19/2024 until 04/18/2025 [facility] Work Phone: Comment on above: 1 Occurrences starti ng 03/19/2024 until 04/18/2025 [facility] Immunizations Immunization Date Immunization Notes Care Provider Kati swift 05-03-2012 influenza virus vaccine, whole virus Essie Ryan NP Work Phone: [facility] 05-03-2012 influenza, whole Jose WOOTEN [facility] 05-03-2012 influenza virus vaccine, unspecified formulation Evans Anderson PA-C Work Phone: [facility] Payers Date Payer Category Payer Medicaid HMO [facility] MEDICAID [id number] 2022 Private Health Insurance [id number] 2020 Medicaid [facility] MEDICAID [facility] MEDICAID [id number] 2020-Present [phone] [address] [place] [address] Medicaid [id number] 2020 Medicaid [id number] [id number]. [id number] 1976 Unknown [id number] 2.16.840.1.318352.3.579. 2.593 1976 Unknown [id number] 2.16.840.1.286059.3.579. 2.593 1976 Unknown [id number] 2.16.840.1.777637.3.579. 2.593 1976 Unknown [id number] 2.16.840.1.750460.3.579. 2.593 1976 Unknown [id number] 2.16.840.1.748658.3.579. 2.593 1976 Unknown [id number] 2.16.840.1.693057.3.579. 2.593 1976 Unknown [id number] 2.16.840.1.946073.3.579. 2.593 1976 Unknown [id number] 2.16.840.1.047247.3.579. 2.593 1976 Unknown [id number] 2.16.840.1.178715.3.579. 2.593 1976 Unknown [id number] 2.16.840.1.382758.3.579. 2.593 1976 Unknown [id number] 2.16.840.1.027224.3.579. 2.593 1976 Unknown [id number] 2.16.840.1.116441.3.579. 2.593 1976 Unknown [id number] 2.16.840.1.771972.3.579. 2.593 1976 Unknown [id number] 2.16.840.1.857778.3.579. 2.593 1976 Unknown [id number] 2.16.840.1.906502.3.579. 2.593 1976 Unknown [id number] 2.16.840.1.050493.3.579. 2.593 1976 Unknown [id number] 2.16.840.1.246468.3.579. 2.593 1976 Unknown [id number] 2.16.840.1.197700.3.579. 2.593 1976 Unknown [id number] 2.16.840.1.328930.3.579. 2.593 1976 Unknown [id number] 2.16.840.1.293137.3.579. 2.593 1976 Unknown [id number] 2.16.840.1.014702.3.579. 2.593 1976 Unknown [id number] 2.16.840.1.323656.3.579. 2.593 1976 Unknown [id number] 2.16.840.1.943587.3.579. 2.593 1976 Unknown [id number] 2.16.840.1.571554.3.579. 2.1286 1976 Unknown [id number] 2.16.840.1.721254.3.579. 2.1286 1976 Unknown [id number] 2.16.840.1.726760.3.579. 2.1286 1976 Unknown [id number] 2.16.840.1.275143.3.579. 2.1286 1976 Unknown [id number] 2.16.840.1.835727.3.579. 2.1286 1976 Unknown [id number] 2.16.840.1.370189.3.579. 2.727 1976 Unknown [id number] 2.16.840.1.767754.3.579. 2.727 1976 Unknown [id number] 2.16.840.1.362326.3.579. 2.727 1976 Unknown [id number] 2.16.840.1.173647.3.579. 2.727 1976 Unknown [id number] 2.16.840.1.880956.3.579. 2.727 1976 Unknown [id number] 2.16.840.1.763223.3.579. 2.727 1976 Unknown [id number] 2.16.840.1.618185.3.579. 2.727 1976 Unknown [id number] 2.16.840.1.519797.3.579. 2.727 1976 Unknown [id number] 2.16.840.1.399931.3.579. 2.1259 1976 Unknown [id number] 2.16.840.1.233970.3.579. 2.1259 1976 Unknown [id number] 2.16.840.1.402174.3.579. 2.1259 1976 Unknown [id number] 2.16.840.1.352000.3.579. 2.1259 1976 Unknown [id number] 2.16.840.1.283856.3.579. 2.1259 1976 Unknown [id number] 2.16.840.1.138230.3.579. 2.9 1976 Unknown [id number] 2.16.840.1.925791.3.579. 2.9 1976 Unknown [id number] 2.16.840.1.864004.3.579. 2.9 1976 Unknown [id number] 2.16.840.1.513135.3.579. 2.1258 1976 Unknown [id number] 2.16.840.1.923384.3.579. 2.1258 1976 Unknown [id number] 2.16.840.1.575408.3.579. 2.9 1976 Unknown [id number] 2.16.840.1.604925.3.579. 2.1258 1976 Unknown [id number] 2.16.840.1.828779.3.579. 2.1258 1976 Unknown [id number] 2.16.840.1.367668.3.579. 2.1258 1976 Unknown [id number] 2.16.840.1.088627.3.579. 2.9 1976 Unknown [id number] 2.16.840.1.711299.3.579. 2.1258 1976 Unknown [id number] 2.16.840.1.879217.3.579. 2.125 1976 Unknown [id number] 2.16.840.1.831676.3.579. 2.1258 1976 Unknown [id number] 2.16.840.1.714701.3.579. 2.1258 1976 Unknown [id number] 2.16.840.1.660392.3.579. 2.9 1976 Unknown [id number] 2.16.840.1.266398.3.579. 2.1286 1976 Unknown [id number] 2.16.840.1.030237.3.579. 2.1286 1976 Unknown [id number] 2.16.840.1.848830.3.579. 2.1286 1976 Unknown [id number] 2.16.840.1.230000.3.579. 2.1286 1976 Unknown [id number] 2.16.840.1.628883.3.579. 2.1286 1976 Unknown [id number] 2.16.840.1.501937.3.579. 2.1286 1959 Unknown [id number] 2.16.840.1.898987.19 1959 Unknown [id number] Unknown Social History Date Type Detail Facility Start: 06-28-2023 End: 03-15-2024 Sex Assigned At [facility] Start: 07-27-2016 End: 02-21-2022 Tobacco smoking status WVIS Never smoked tobacco [facility] Start: 07-27-2016 End: 02-21-2022 Tobacco use and exposure Smokeless tobacco non-user [facility] Start: 12-15-2020 End: 06-05-2024 Alcohol intake Current non-drinker of alcohol (finding) [facility] Start: 1976 Sex Assigned At Not on file C [facility] Start: 01-07-2022 End: 02-21-2022 Exposure to SARS-CoV-2 (event) Not sure [facility] Tobacco Past [facility] Comment on above: stopped 12 years ago stopped 12 years ago Tobacco smoking status No Smoking Status Entered [facility] Tobacco smoking status Never [facility] Start: 06-28-2023 End: 03-15-2024 History of Social function [facility] Start: 02-29-2024 End: 05-29-2024 Alcoholic beverage intake Lifetime non-drinker (finding) [facility] Are you now , , , , never or living with a partner? [facility] How often to you hav e a drink containing alcohol? Never [facility] (I/We) worried whether (my/our) food would run out before (I/we) got money to buy more. Never true [facility] In the past 12 months, was there a time when you were not able to pay the mortgage or rent on time? No [facility] Start: 01-09-2023 Alcohol Comment caffeine intak e: 1-2 cups per day [facility] Start: 01-29-2015 Sex Female (finding) [facility] NEGATED: Highlighted rowStart: NINF History of tobacco use Passive smoker [facility] Functional Status Date Assessment Result Facility 11-28-2023 Functional Status N/A [facility] 05-29-2023 Functional Status N/A [facility] 11-24-2022 Functional Status N/A [facility] 04-26-2022 Functional Status N/A [facility] Clinical Notes 12-14-2020 to 06-05-2024 Negrita Tejeda APRN.NIURKA - 06/05/2024 10:30 AM Negrita Haynes APRN.NIURKA - 06/05/2024 10:30 AM ESTPatient InstructionsEssie Ryan NP - 05/29/2024 2:20 PM ESTPatient Instructions Note Date & Type Note Facility 06-05-2024 History and physical note Images from the original note were not included. [facility] HISTORY AND PHYSICAL EXAMINATION SERVICE DATE: 06/05/2024 SERVICE TIME: 9:56 AM PRIMARY CARE PHYSICIAN: Essie Ryan, NIURKA, TELEVISION TECHNICIAN REASON FOR VISIT: Stacey Sahu is a 48 year old female who is scheduled for Right - ARTHROPLASTY REPLACE JOINT TOTAL HIP at the request of Dr. Lois Mckeon for consultation. My final recommendation will be communicated back to the requesting physician by way of shared medical record or letter. Assessment NIRMALA (obstructive sleep apnea) Assessment: non-compliant with CPAP GERD (gastroesophageal reflux disease) Assessment: managed with med, stable Follows up with PCP Pulmonary HTN (HCC) Assessment: EF 65% per ECHO 11/22/22 Follows up with cardiology, last office visit 03/06/24 Asymptomatic Other hyperlipidemia Assessment: diet controlled, stable Follows up with PCP BMI 37.0-37.9, adult Assessment: diet and exercise encouraged Diane Activity Status Index: METS: Walk indoors, such as around the house (1.75 METs) Do light work around the house, such as dusting or washing dishes (2.70 METs) Take care of self; that is eating, dressing, bathing, using the toilet (2.75 METs) Walk a block or two on level ground (2.75 METs) Do moderate work around the house, such as vacuuming, sweeping floors, or carrying in groceries (3.50 METs) Do yardwork, such as raking leaves, weeding, or pushing a power mower (4.50 METs) Climb a flight of stairs or walk up a hill (5.50 METs) DASI Score: 23.45 Patient denies any chest pain or undue shortness of breath with the above physical activity. Clinical Frailty Scale: 2. Well STOP-Bang Score: STOP-Bang Score: 0 (Non-compliant with CPAP ) [id number] Score: Age: <65 Sex: female [id number] Score: ARISCAT Score: Age: <=50 Preoperative SpO2: >=96% Preoperative anemia: Yes Duration of surgery: 2-3 hrs Emergency procedure: No ARISCAT Score: ANESTHESIA FINDINGS: Intubation History: No history of difficult intubation. No abnormal airway history Significant Anesthesia Considerations: none Airway History: No history of difficult airway No abnormal airway history I - PHYSICAL EVALUATION AIRWAY Patient intubated: No. Tracheostomy tube not present Mallampati: III. TM distance: <3 FB. Neck ROM: full ROM without neurological symptoms. Mouth opening: adequate. Short neck: yes. Thick neck: yes Lip Bite Test: I DENTAL Dental findings: teeth intact. II - ANESTHESIA PLAN Anesthetic plan additional comments: *PACC/TCI - anesthesia choice. Beta Roderick Monitoring Plan Post Procedure Analgesic Plan Prepared for surgery: This patient is optimally prepared for surgery pending LABS. CONSULTS: Patient does not require consults for optimization at this time. The Following Tests/Procedures Have Been Initiated: Orders Placed This Encounter Complete Blood Count and Differential Standing Status: Future Standing Expiration Date: 09/04/2024 BMP Standing Status: Future Standing Expiration Date: 09/04/2024 Iron and TIBC Standing Status: Future Standing Expiration Date: 09/04/2024 Ferritin Standing Status: Future Standing Expiration Date: 09/04/2024 meloxicam (MOBIC) 15 mg tablet Sig: Take 15 mg by mouth once daily. ARIPiprazole (ABILIFY) 30 mg tablet Sig: Take 1 tablet by mouth once daily. mupirocin (BACTROBAN) 2 % ointment Sig: two times a day for 5 days. Apply 0.5 inch with cotton swab (Q-tip) to each nostril in the morning and evening for 5 days prior to and including day of surgery. Dispense: 22 g Refill: 0 ECG (IN OFFICE) Planned Anesthetic: Per anesthesia choice The patient has the following: ACTIVE PROBLEM LIST (spontaneous vaginal delivery) x 4 Crohn's disease without complication (HCC) [id number] Pulmonary Htn (Hcc) Obese Nirmala (Obstructive Sleep Apnea) Gerd (Gastroesophageal Reflux Disease) Crohn's Disease of Intestine (Hcc) Enterolith of Small Intestine (Hcc) Bipolar Disease, Chronic (Hcc) Other Hyperlipidemia Bmi 37.0-37.9, Adult Subjective CHIEF COMPLAINT: Pre-op exam HPI: This is a 48 year old female that is scheduled for the above procedure. Patient has osteoarthritis in her right hip that is causing worsening pain. She states current pain is 3/10 and described as aching with intermittent sharp pain. States pain is constant; denies alleviating or aggravating factors. PAST MEDICAL HISTORY Diagnosis Date Abnormal uterine [...] Crohn's LAPAROSCOPY DIAGNOSTIC 06/2016 MIDLINE INSERTION/CONSULT 12/14/2020 THYROIDECTOMY TOTAL ABDOM HYSTERECTOMY ovaries intact TUBAL LIGATION HX 2002 FAMILY HISTORY Problem Relation Age of Onset Breast Cancer Mother Ischemic Heart Disease Father Diabetes Father Cancer Father esophageal, lung Hypertension Father No Known Problems Daughter No Known Problems Daughter No Known Problems Son No Known Problems Son SOCIAL HISTORY: Social History Tobacco Use Smoking status: Never Smokeless tobacco: Never Vaping Use Vaping status: Never Used Substance Use Topics Alcohol use: No Drug use: No MEDICATIONS: Prior to Admission medications as of 06/05/24 1042 Medication Sig Last Dose Taking meloxicam (MOBIC) 15 mg tablet Take 15 mg by mouth once daily. Taking Yes ARIPiprazole (ABILIFY) 30 mg tablet Take 1 tablet by mouth once daily. Taking Yes mupirocin (BACTROBAN) 2 % ointment two times a day for 5 days. Apply 0.5 inch with cotton swab (Q-tip) to each nostril in the morning and evening for 5 days prior to and including day of surgery. Yes acetaminophen (TYLENOL) 325 mg tablet Take 2 tablets by mouth every 6 hours as needed. Taking Yes Omeprazole 40 mg capsule Take 40 mg by mouth once daily. Taking Yes No medication comments found. CURRENT ALLERGIES: ALLERGIES Allergen Reactions Penicillins Unknown Covid Immunization Dates Overdue - Covid-19 Vaccine ( season) Never done No completion, postpone, frequency change, or communication history exists for this topic. REVIEW OF SYSTEMS: PAIN ASSESSMENT: Pain Pain Level: 3 Pain Location: Hip-Right Description: Sharp, Aching, Dull Duration Amount of Time: 3 Duration Units: Years Frequency: Continuous General: No weight loss, malaise or fevers. Neuro: No history of TIA's, stroke, SLAB CONDITIONER SUPERVISOR tumor, impaired sensorium, hemiplegia, paraplegia or quadraplegia. No neurological symptoms or problems. Respiratory: No history of current cough or dyspnea, or pneumonia in the past 6 weeks. No history of respiratory/pulmonary symptoms or problems. Cardiovascular: Positive for: HLD, pulm HTN, Negative for Arrhythmia, CAD, Chest Pain, DVT/PE GI: Positive for GERD, Negative for Abdominal pain, Difficulty swallowing, Liver disease : No history of dysuria, frequency or incontinence,, stones or chronic kidney disease, No difficulty urinating, nocturia > 1 time per night or hematuria Endocrine: No history of diabetes. Has not taken steroids within the past 30 days. No history of endocrinological symptoms or problems. Hematology: No history of bleeding or clotting disorder. Pt is not taking anti-coagulation or platelet medications. No history of hematological symptoms or problems. Oncology: No history of CA metastasis, chemo within 30 days, or radiotherapy within 90 days. Has not lost 10% of body wt in 6 months. No history of oncological symptoms or problems. Psych: Anxiety, Bipolar disorder Marijuana use: No Musculoskeletal: See HPI Skin: Negative for lesions, rash and itching. Implanted Devices: No Objective PHYSICAL EXAM: VITALS: BP 135/85 Pulse 86 Temp (Src) 97.8 (Temporal) Resp 16 Ht 5' 0 (1.52m) Wt 193 lb 2 oz (87.6kg) SpO2 96% BMI 37.72 kg/(m^2). General: Alert and oriented, No acute distress Skin: Normal color, no rash, no lesions. HEENT: EOM, pupils equal, round and reactive. Cardiovascular: Normal S1 & S2, no rubs, murmurs or gallops. No JVD. Pulse regular. Lungs: Normal breath sounds, no wheezes or crackles., No chest deformities or chest wall tenderness. Abdomen: Soft, non-tender, no rigidity., No masses or organomegaly. Extremities: Joint tenderness right hip Neurological: Normal cognition and motor skills. Gait normal. No weakness or sensory deficit. Pulses: Carotid and radial pulses normal +2. Diagnostic tests reviewed for today's visit: Lab Value Units Date High Low HB No results within date range. HCT No results within date range. WBC No results within date range. PLT No results within date range. NA No results within date range. K No results within date range. GLUC No results within date range. BUN No results within date range. CREAT No results within date range. PTSEC No results within date range. INR No results within date range. APTT No results within date range. ALT No results within date range. AST No results within date range. TBILI No results within date range. TSH No results within date range. EKG in office 06/05/2024 Preliminary result: NORMAL SINUS RHYTHM NORMAL ECG Echo 11/22/22 1. Normal ventricular systolic function. LVEF is 65%. 2. Normal diastolic function. 3. No significant valvular dysfunction. 4. Normal right-sided pressures. Instructions Given to Patient: Instructions located in the after visit summary. Patient given verbal and written preop instructions and voices comprehension and compliance. SIGNATURE: Negrita Tejeda APRN.TELEVISION TECHNICIAN PATIENT NAME: Stacey Sahu DATE: 06/05/2024 TIME: 9:56 AM [facility] 06-05-2024 History and physical note Images from the original note were not included. [facility] HISTORY AND PHYSICAL EXAMINATION SERVICE DATE: 06/05/2024 SERVICE TIME: 9:56 AM PRIMARY CARE PHYSICIAN: Essie Ryan, TELEVISION TECHNICIAN, TELEVISION TECHNICIAN REASON FOR VISIT: Stacey Sahu is a 48 year old female who is scheduled for Right - ARTHROPLASTY REPLACE JOINT TOTAL HIP at the request of Dr. Lois Mckeon for consultation. My final recommendation will be communicated back to the requesting physician by way of shared medical record or letter. Assessment NIRMALA (obstructive sleep apnea) Assessment: non-compliant with CPAP GERD (gastroesophageal reflux disease) Assessment: managed with med, stable Follows up with PCP Pulmonary HTN (HCC) Assessment: EF 65% per ECHO 11/22/22 Follows up with cardiology, last office visit 03/06/24 Asymptomatic Other hyperlipidemia Assessment: diet controlled, stable Follows up with PCP BMI 37.0-37.9, adult Assessment: diet and exercise encouraged Diane Activity Status Index: METS: Walk indoors, such as around the house (1.75 METs) Do light work around the house, such as dusting or washing dishes (2.70 METs) Take care of self; that is eating, dressing, bathing, using the toilet (2.75 METs) Walk a block or two on level ground (2.75 METs) Do moderate work around the house, such as vacuuming, sweeping floors, or carrying in groceries (3.50 METs) Do yardwork, such as raking leaves, weeding, or pushing a power mower (4.50 METs) Climb a flight of stairs or walk up a hill (5.50 METs) DASI Score: 23.45 Patient denies any chest pain or undue shortness of breath with the above physical activity. Clinical Frailty Scale: 2. Well STOP-Bang Score: STOP-Bang Score: 0 (Non-compliant with CPAP ) [id number] Score: Age: <65 Sex: female [id number] Score: ARISCAT Score: Age: <=50 Preoperative SpO2: >=96% Preoperative anemia: Yes Duration of surgery: 2-3 hrs Emergency procedure: No ARISCAT Score: ANESTHESIA FINDINGS: Intubation History: No history of difficult intubation. No abnormal airway history Significant Anesthesia Considerations: none Airway History: No history of difficult airway No abnormal airway history I - PHYSICAL EVALUATION AIRWAY Patient intubated: No. Tracheostomy tube not present Mallampati: III. TM distance: <3 FB. Neck ROM: full ROM without neurological symptoms. Mouth opening: adequate. Short neck: yes. Thick neck: yes Lip Bite Test: I DENTAL Dental findings: teeth intact. II - ANESTHESIA PLAN Anesthetic plan additional comments: *PACC/TCI - anesthesia choice. Beta Roderick Monitoring Plan Post Procedure Analgesic Plan Prepared for surgery: This patient is optimally prepared for surgery pending LABS. CONSULTS: Patient does not require consults for optimization at this time. The Following Tests/Procedures Have Been Initiated: Orders Placed This Encounter Complete Blood Count and Differential Standing Status: Future Standing Expiration Date: 09/04/2024 BMP Standing Status: Future Standing Expiration Date: 09/04/2024 Iron and TIBC Standing Status: Future Standing Expiration Date: 09/04/2024 Ferritin Standing Status: Future Standing Expiration Date: 09/04/2024 meloxicam (MOBIC) 15 mg tablet Sig: Take 15 mg by mouth once daily. ARIPiprazole (ABILIFY) 30 mg tablet Sig: Take 1 tablet by mouth once daily. mupirocin (BACTROBAN) 2 % ointment Sig: two times a day for 5 days. Apply 0.5 inch with cotton swab (Q-tip) to each nostril in the morning and evening for 5 days prior to and including day of surgery. Dispense: 22 g Refill: 0 ECG (IN OFFICE) Planned Anesthetic: Per anesthesia choice The patient has the following: ACTIVE PROBLEM LIST (spontaneous vaginal delivery) x 4 Crohn's disease without complication (HCC) [id number] Pulmonary Htn (Hcc) Obese Nirmala (Obstructive Sleep Apnea) Gerd (Gastroesophageal Reflux Disease) Crohn's Disease of Intestine (Hcc) Enterolith of Small Intestine (Hcc) Bipolar Disease, Chronic (Hcc) Other Hyperlipidemia Bmi 37.0-37.9, Adult Subjective CHIEF COMPLAINT: Pre-op exam HPI: This is a 48 year old female that is scheduled for the above procedure. Patient has osteoarthritis in her right hip that is causing worsening pain. She states current pain is 3/10 and described as aching with intermittent sharp pain. States pain is constant; denies alleviating or aggravating factors. PAST MEDICAL HISTORY Diagnosis Date Abnormal uterine [...] Crohn's LAPAROSCOPY DIAGNOSTIC 06/2016 MIDLINE INSERTION/CONSULT 12/14/2020 THYROIDECTOMY TOTAL ABDOM HYSTERECTOMY ovaries intact TUBAL LIGATION HX 2003 FAMILY HISTORY Problem Relation Age of Onset Breast Cancer Mother Ischemic Heart Disease Father Diabetes Father Cancer Father esophageal, lung Hypertension Father No Known Problems Daughter No Known Problems Daughter No Known Problems Son No Known Problems Son SOCIAL HISTORY: Social History Tobacco Use Smoking status: Never Smokeless tobacco: Never Vaping Use Vaping status: Never Used Substance Use Topics Alcohol use: No Drug use: No MEDICATIONS: Prior to Admission medications as of 06/05/24 1042 Medication Sig Last Dose Taking meloxicam (MOBIC) 15 mg tablet Take 15 mg by mouth once daily. Taking Yes ARIPiprazole (ABILIFY) 30 mg tablet Take 1 tablet by mouth once daily. Taking Yes mupirocin (BACTROBAN) 2 % ointment two times a day for 5 days. Apply 0.5 inch with cotton swab (Q-tip) to each nostril in the morning and evening for 5 days prior to and including day of surgery. Yes acetaminophen (TYLENOL) 325 mg tablet Take 2 tablets by mouth every 6 hours as needed. Taking Yes Omeprazole 40 mg capsule Take 40 mg by mouth once daily. Taking Yes No medication comments found. CURRENT ALLERGIES: ALLERGIES Allergen Reactions Penicillins Unknown Covid Immunization Dates Overdue - Covid-19 Vaccine ( season) Never done No completion, postpone, frequency change, or communication history exists for this topic. REVIEW OF SYSTEMS: PAIN ASSESSMENT: Pain Pain Level: 3 Pain Location: Hip-Right Description: Sharp, Aching, Dull Duration Amount of Time: 3 Duration Units: Years Frequency: Continuous General: No weight loss, malaise or fevers. Neuro: No history of TIA's, stroke, SLAB CONDITIONER SUPERVISOR tumor, impaired sensorium, hemiplegia, paraplegia or quadraplegia. No neurological symptoms or problems. Respiratory: No history of current cough or dyspnea, or pneumonia in the past 6 weeks. No history of respiratory/pulmonary symptoms or problems. Cardiovascular: Positive for: HLD, pulm HTN, Negative for Arrhythmia, CAD, Chest Pain, DVT/PE GI: Positive for GERD, Negative for Abdominal pain, Difficulty swallowing, Liver disease : No history of dysuria, frequency or incontinence,, stones or chronic kidney disease, No difficulty urinating, nocturia > 1 time per night or hematuria Endocrine: No history of diabetes. Has not taken steroids within the past 30 days. No history of endocrinological symptoms or problems. Hematology: No history of bleeding or clotting disorder. Pt is not taking anti-coagulation or platelet medications. No history of hematological symptoms or problems. Oncology: No history of CA metastasis, chemo within 30 days, or radiotherapy within 90 days. Has not lost 10% of body wt in 6 months. No history of oncological symptoms or problems. Psych: Anxiety, Bipolar disorder Marijuana use: No Musculoskeletal: See HPI Skin: Negative for lesions, rash and itching. Implanted Devices: No Objective PHYSICAL EXAM: VITALS: BP 135/85 Pulse 86 Temp (Src) 97.8 (Temporal) Resp 16 Ht 5' 0 (1.52m) Wt 193 lb 2 oz (87.6kg) SpO2 96% BMI 37.72 kg/(m^2). General: Alert and oriented, No acute distress Skin: Normal color, no rash, no lesions. HEENT: EOM, pupils equal, round and reactive. Cardiovascular: Normal S1 & S2, no rubs, murmurs or gallops. No JVD. Pulse regular. Lungs: Normal breath sounds, no wheezes or crackles., No chest deformities or chest wall tenderness. Abdomen: Soft, non-tender, no rigidity., No masses or organomegaly. Extremities: Joint tenderness right hip Neurological: Normal cognition and motor skills. Gait normal. No weakness or sensory deficit. Pulses: Carotid and radial pulses normal +2. Diagnostic tests reviewed for today's visit: Lab Value Units Date High Low HB No results within date range. HCT No results within date range. WBC No results within date range. PLT No results within date range. NA No results within date range. K No results within date range. GLUC No results within date range. BUN No results within date range. CREAT No results within date range. PTSEC No results within date range. INR No results within date range. APTT No results within date range. ALT No results within date range. AST No results within date range. TBILI No results within date range. TSH No results within date range. EKG in office 06/05/2024 Preliminary result: NORMAL SINUS RHYTHM NORMAL ECG Echo 11/22/22 1. Normal ventricular systolic function. LVEF is 65%. 2. Normal diastolic function. 3. No significant valvular dysfunction. 4. Normal right-sided pressures. Instructions Given to Patient: Instructions located in the after visit summary. Patient given verbal and written preop instructions and voices comprehension and compliance. SIGNATURE: Negrita Tejdea APRN.CNP PATIENT NAME: Stacey Sahu DATE: 06/05/2024 TIME: 9:56 AM documented in this encounter [facility] 06-04-2024 Instructions Negrita Tejeda APRN.CNP - 06/04/2024 8:24 AM EST Images from the original note were not included. [facility] PATIENT PREOPERATIVE INSTRUCTIONS Lois Mckeon MD has scheduled you for your procedure at this surgery center: [facility]: [phone] --[address] [place] [address]. On your scheduled day of surgery, please report to Patient Registration, ground floor Please read below carefully for your personalized instructions. Dietary Restrictions: - No solid food after midnight. - You may have 12 ounces of clear liquids (water, clear juices such as apple juice or gatorade, carbonated beverages, clear tea, black coffee, jello) until 2 hours before scheduled arrival at facility. Pre-Surgery Med Instructions Medication Instructions meloxicam (MOBIC) 15 mg tablet Stop 7 days before surgery ARIPiprazole (ABILIFY) 30 mg tablet Take the day of surgery with a small sip of water acetaminophen (TYLENOL) 325 mg tablet As needed Omeprazole 40 mg capsule Take the day of surgery with a small sip of water If you start any new medications after today's visit, please contact the surgeon's office. If you are currently using a [id number] injectable or oral medication for diabetes or weight loss such as Dulaglutide (Trulicity), Exenatide (Byetta, Bydureon), Liraglutide (Victoza, Saxenda), Semaglutide (Ozempic, Wegovy, Rybelsus), or Tirzepatide (Mounjaro) the medicine should be stopped at least seven days before surgery. These medications can cause food to remain in your stomach for a long time and increase the risks from surgery and anesthesia. Not stopping these medications for the required time, may result in your surgery being rescheduled. Blood Thinning Medications: - Stop NSAIDS (Ibuprofen, Advil, Aleve, Motrin, Celebrex, Mobic, etc.) 7 days before surgery, as directed by your surgeon. - Stop herbals and dietary supplements 7 days before surgery. - You may take Tylenol (Acetaminophen) or any of your pain medications that do not contain aspirin or NSAIDS as needed. Important Reminders: - Candy, mints, and tobacco products are NOT permitted the morning of surgery. - Hearing aids, dentures and glasses may be worn the morning of surgery. - NO jewelry, body piercings, makeup, hairpins or contacts are to be worn the day of surgery. If you develop symptoms such as a fever, cold, or flu, or have other changes to your health within TWO DAYS of scheduled surgery or the morning of surgery, please contact the surgery center above. Personal Belongings: -Please have photo ID and insurance cards. -If you do not have a copy of advance directives on file with us, please bring a copy with you on the day of surgery. - Leave ALL valuables and money at home or with family members. For Outpatient Procedures: - YOU MUST HAVE A RESPONSIBLE PHYSICIAN INTENSIVIST TAKE YOU HOME. A EQUIPMENT OPERATOR/LABORER OR BRAID FOLDER CANNOT BE MADE A RESPONSIBLE PHYSICIAN INTENSIVIST. - We recommend that a responsible person stays with you overnight to take care of you. - You cannot stay in a hotel alone after outpatient surgery. You will not be permitted to have your surgery, if you do not have someone to take care of you. Arrival Time for Surgery: - The Surgery Center or hospital where you are having surgery will call the afternoon before surgery (or Monday for Monday surgery) with a scheduled arrival time. - If you have not heard by 4 pm, please contact the surgery center above. Please be aware that emergency situations arise, which may delay or change your surgical time. If this happens, we will notify you as soon as possible and regret any inconvenience. If you already have an Advance Directive, please fax a copy to [phone] or email to for it to be added to your chart. If you do not have an Advance Directive, you can find the appropriate form and more information at [email or web address]. We recommend that you complete the Advance Directive form found on the website and bring it with you the day of your surgery. It can be witnessed and scanned into your chart that day. documented in this encounter [facility] 05-29-2024 History of Presen t illness Narrative Images from the original note were not included. Stacey Sahu is a 48 y.o. female presents with chief complaint of Bipolar HPI: Since last visit has seen ENT and ortho Hip; right hip replacement [facility]. No changes in hip sxs, average pain 5/10 NIRMALA: is going to have inspire procedure and is scheduled for 08/01/24 in [place] Mood/Anxiety: takes meds daily, no side effects. No SI/HI/hallucinations. Appetite is ok, sleep is fair but more due to hip pain. Can overwhelm easily, not crying a lot, irritation avearge SUBJECTIVE: MEDICATIONS: Current Outpatient Medications Medication Instructions ARIPiprazole (ABILIFY) 15 mg, Oral, Daily atorvastatin (LIPITOR) 80 mg, Every morning busPIRone (BUSPAR) 7.5 mg, 2 times daily meloxicam (MOBIC) 15 mg, Daily RT omeprazole (PRILOSEC) 40 mg, Oral, Daily before breakfast traMADol (ULTRAM) 50 mg, Every 6 hours ALLERGIES: Allergies Allergen Reactions Penicillins Other and Unknown As a child REVIEW OF SYMPTOMS: Review of Systems Constitutional: Negative for appetite change, chills and fever. HENT: Negative for congestion, ear pain and sore throat. Eyes: Negative for pain, discharge, redness and visual disturbance. Respiratory: Negative for cough, shortness of breath and wheezing. Cardiovascular: Negative for chest pain, palpitations and leg swelling. Gastrointestinal: Negative for abdominal pain, blood in stool, constipation, diarrhea, nausea and vomiting. Genitourinary: Negative for difficulty urinating, dysuria and frequency. Musculoskeletal: Positive for arthralgias. Negative for back pain, joint swelling and myalgias. Skin: Negative for rash and wound. Neurological: Negative for dizziness, tremors, seizures, syncope and headaches. Psychiatric/Behavioral: Negative for behavioral problems, self-injury and suicidal ideas. The patient is nervous/anxious. Hematological: Does not bruise/bleed easily. Endocrine: Negative for polydipsia, polyphagia and polyuria. Allergic/Immunologic: Negative for environmental allergies and food allergies. PAST MEDICAL HISTORY Past Medical History: Diagnosis Date Acute thigh pain, right Allergic rhinitis Anxiety 07/25/2023 Bipolar disorder (CMS/HCC) Chest pain 02/09/2012 Chronic GERD Chronic rhinitis 2023 Constipation COVID-19 01/2022 Crohn's disease (CMS/HCC) De Quervain's tenosynovitis, right Dyspnea on exertion Edema of extremities Elevated serum glucose Enlarged thyroid (CMS/HCC) Flank pain 11/08/2022 Gross hematuria 11/08/2022 History of nausea Hot flashes Hyperlipidemia (CMS/HCC) 09/11/2023 Lumbar back pain with radiculopathy affecting right lower extremity Multiple thyroid nodules (CMS/HCC) Nocturia 01/14/2023 Obese 11/08/2022 Obesity, morbid (CMS/HCC) NIRMALA (obstructive sleep apnea) Other acute sinusitis 06/07/2023 Other hyperlipidemia (CMS/HCC) 12/14/2020 Pain of right upper extremity Pelvic pain 01/14/2023 Pulmonary arterial hypertension (CMS/HCC) Right hip pain Shingles Shortness of breath Small bowel obstruction (CMS/HCC) Superficial venous thrombosis of arm, right Trochanteric bursitis, right hip URI, acute 06/15/2023 Urine discoloration Weight gain Past Surgical History: Procedure Laterality Date COLECTOMY 2011 DORSAL COMPARTMENT RELEASE Right 10/17/2018 first- Dr. Bagley HYSTERECTOMY 09/22/2016 total IR FINE NEEDLE ASPIRATION THYROID 01/14/2021 IR FINE NEEDLE ASPIRATION THYROID 10/18/2022 LAPAROSCOPY DIAGNOSTIC / BIOPSY / ASPIRATION / LYSIS 07/15/2016 THYROID SURGERY 01/10/2023 r/o isthmus mass, (benign), Dr. Caceres TONSILLECTOMY 1989 TUBAL LIGATION Bilateral 2000 family history includes Cancer in her father and mother; Diabetes in her father; Heart disease in her father; Hypertension in her father. OBJECTIVE: Visit Vitals BP 110/86 (BP Location: Left arm, Patient Position: Sitting, BP Cuff Size: Adult long) Pulse 94 Temp 98.1 F (Temporal) Resp 18 Ht 5' Wt 194 lb 12.8 oz SpO2 98% BMI 38.04 kg/m Smoking Status Never BSA 1.93 m Physical Exam Vitals and nursing note reviewed. Constitutional: General: She is not in acute distress. Appearance: Normal appearance. HENT: Head: Normocephalic and atraumatic. Right Ear: External ear normal. Left Ear: External ear normal. Nose: Nose normal. Mouth/Throat: Mouth: Mucous membranes are moist. Eyes: Extraocular Movements: Extraocular movements intact. Conjunctiva/sclera: Conjunctivae normal. Cardiovascular: Rate and Rhythm: Normal rate and regular rhythm. Pulses: Normal pulses. Heart sounds: Normal heart sounds. Pulmonary: Effort: Pulmonary effort is normal. Breath sounds: Normal breath sounds. Abdominal: General: Bowel sounds are normal. There is no distension. Palpations: Abdomen is soft. There is no mass. Tenderness: There is no abdominal tenderness. Musculoskeletal: General: Normal range of motion. Cervical back: Normal range of motion and neck supple. Skin: General: Skin is warm and dry. Capillary Refill: Capillary refill takes 2 to 3 seconds. Findings: No rash. Neurological: General: No focal deficit present. Mental Status: She is alert and oriented to person, place, and time. Psychiatric: Mood and Affect: Mood normal. Behavior: Behavior normal. Thought Content: Thought content normal. Judgment: Judgment normal. ASSESSMENT AND PLAN: No follow-ups on file. Problem List Items Addressed This Visit NIRMALA (obstructive sleep apnea) - Primary Does not tolerate PAP use Is pursing surgical intervention for device insertion Continue with specialist for this PAH (pulmonary artery hypertension) ([facility]) Saw cardiology in the past, was on letaris, no longer taking it or fu with cardiology Non compliant with PAP, looking into inspire No chest pain/pressure/dyspnea Chronic rhinitis Anxiety Does not want to see psych Meds are controlling symptoms Current meds: buspar prn and abilify Chronic right hip pain Has been with ortho Plan for hip replacement after first of the year Body mass index (BMI) 38.0-38.9, adult Morbid (severe) obesity due to excess calories (CMS/HCC) Discussed with patient their BMI (actual, verses recommended). We have also discussed lifestyle modifications: attempts to perform physical activity as chronic conditions allow, also to monitor dietary intake: increasing protein/fruits/veggies and lowering carb intake (unless contraindicated). Limit sodas, juices, and sugary drinks.. Bipolar 1 disorder (CMS/HCC) Is currently taking ability Does not want to see psych Associated Problem(s): Anxiety Does not want to see psych Meds are controlling symptoms Current meds: buspar prn and abilify Associated Problem(s): Bipolar 1 disorder (CMS/HCC) Is currently taking ability Does not want to see psych Associated Problem(s): Morbid (severe) obesity due to excess calories (CMS/HCC) Discussed with patient their BMI (actual, verses recommended). We have also discussed lifestyle modifications: attempts to perform physical activity as chronic conditions allow, also to monitor dietary intake: increasing protein/fruits/veggies and lowering carb intake (unless contraindicated). Limit sodas, juices, and sugary drinks.. Associated Problem(s): Chronic right hip pain Has been with ortho Plan for hip replacement after first of the year Associated Problem(s): PAH (pulmonary artery hypertension) ([facility]) Saw cardiology in the past, was on letaris, no longer taking it or fu with cardiology Non compliant with PAP, looking into inspire No chest pain/pressure/dyspnea Associated Problem(s): NIRMALA (obstructive sleep apnea) Does not tolerate PAP use Is pursing surgical intervention for device insertion Continue with specialist for this documented in this encounter [facility] 05-29-2024 Instructions Essie Ryan NP - 05/29/2024 2:20 PM EST No med dose changes documented in this encounter [facility] 05-17-2024 History of Presen t illness Narrative [facility] [address] [place] [address] [place] [phone] SUBJECTIVE: Patient ID ([id number]): Stacey Sahu is a 48 y.o. female presents today for Chief Complaint Patient presents with Post-op HPI: Stacey Sahu presents to clinic for a post op visit following a drug induced sleep endoscopy performed on 05/09/2024 which demonstrated no evidence of lateral pharyngeal wall collapse. Based on these results, she meets indications for implantation of the inspire hypoglossal nerve stimulator. She reports she is doing well with no new ENT related concerns. HISTORY: Past Medical History: Diagnosis Date Anxiety Arthritis Bipolar disorder ([facility]) Chronic pain disorder Crohn's colitis ([facility]) Depression GERD (gastroesophageal reflux disease) H/O methicillin resistant Staphylococcus aureus infection Hyperlipidemia Joint pain Obesity Pleurisy Pulmonary hypertension ([facility]) Pulmonary hypertension ([facility]) Sleep apnea cpap Past Surgical History: Procedure Laterality Date COLON SURGERY part of bowel removed d/t crohns dx COLONOSCOPY ENDOSCOPIC DIAGNOSTIC DRUG INDUCED SLEEP N/A 05/09/2024 Performed by Jeff Rossi MD at [facility] COMPLEX HYSTERECTOMY 2017 INJECTION BURSA LARGE JOINT Right Hip Right 09/01/2023 Performed by Pj Gannon MD at [facility] INJECTION SPINE TRANSFORAMINAL Right L 5,1 Nroot Right 05/26/2023 Performed by Pj Gannon MD at [facility] LYMPH NODE BIOPSY RELEASE DEQUERVAINS CONTRACTURE Right 10/17/2018 Performed by Dereck Bagley DO at [facility] THYROIDECTOMY, PARTIAL 12/2022 nodule TONSILLECTOMY as a child TUBAL LIGATION 2001 Family History Problem Relation Age of Onset [...] Never Smokeless tobacco: Never Vaping Use Vaping status: Never Used Substance and Sexual Activity Alcohol use: No Drug use: No Sexual activity: Defer Other Topics Concern Not on file Social History Narrative Not on file Social Drivers of Health Financial Resource Strain: Patient Declined (06/14/2023) Received from [facility], [facility] Overall Financial Resource Strain (CARDIA) Difficulty of Paying Living Expenses: Patient declined Food Insecurity: No Food Insecurity (05/06/2024) Hunger Screening Food Insecurity - Worry: Never True Food Insecurity - Inability: Never True Transportation Needs: No Transportation Needs (06/14/2023) Received from [facility] PRAPARE - Transportation Lack of Transportation (Medical): No Lack of Transportation (Non-Medical): No Physical Activity: Unknown (06/14/2023) Received from [facility] Exercise Vital Sign Days of Exercise per Week: 2 days Minutes of Exercise per Session: Patient declined Stress: Patient Declined (06/14/2023) Received from [facility] [place] [employer] - Occupational Stress Questionnaire Feeling of Stress : Patient declined Social Connections: Unknown (06/14/2023) Received from [facility] Social Connection and Isolation Panel [NHANES] Frequency of Communication with Friends and Family: Patient declined Frequency of Social Gatherings with Friends and Family: Patient declined Attends Scientologist Services: Patient declined Active Member of Clubs or Organizations: Patient declined Attends Club or Organization Meetings: Patient declined Marital Status: Interpersonal Safety: Unknown (08/17/2023) Received from [facility] [place] Safety & Environment Fear of Current or Ex-Partner: Not on file Emotionally Abused: Not on file Physically Abused: Not on file Sexually Abused: Not on file Physically or Sexually Abused: Not on file Housing Instability: Unknown (06/14/2023) Received from [facility] Housing Stability Vital Sign Unable to Pay for Housing in the Last Year: No Number of Places Lived in the Last Year: Not on file Unstable Housing in the Last Year: No Allergies Allergen Reactions Penicillins As a child Current Outpatient Medications Medication Sig Dispense Refill atorvastatin (LIPITOR) 10 mg tablet Take 1 tablet (10 mg total) by mouth nightly. busPIRone (BUSPAR) 15 mg tablet Take 0.5 tablets (7.5 mg total) by mouth as needed (anxiety). cetirizine (ZyrTEC) 5 mg tablet Take 1 tablet (5 mg total) by mouth as needed for allergies. meloxicam (MOBIC) 15 mg tablet take 1 tablet by mouth every morning (Patient taking differently: Take 1 tablet (15 mg total) by mouth in the morning.) 30 tablet 1 omeprazole (PriLOSEC) 40 mg capsule Take 1 capsule (40 mg total) by mouth nightly. GERD [facility] No current facility-administered medications for this visit. REVIEW OF SYSTEMS: Review of Systems Constitutional: Negative for chills and fever. HENT: Negative for congestion, ear discharge, ear pain, postnasal drip, rhinorrhea, sinus pressure, sinus pain, sore throat and trouble swallowing. Respiratory: Negative for cough and wheezing. Gastrointestinal: Negative for nausea and vomiting. Musculoskeletal: Negative for neck pain and neck stiffness. Data Reviewed: PHYSICAL EXAMINATION: Temp 36.6 C (97.9 F) Ht 152.4 cm (5') Wt 88.8 kg (195 lb 12.8 oz) BMI 38.24 kg/m Constitutional: Healthy, alert, cooperative, and in no distress and normal ablility to communicate . Voice normal quality. Head/Face: Normocephalic, without obvious abnormality, salivary glands normal, atraumatic, sinuses nontender, and facial nerve intact Eyes: No gross abnormalities., EOMI, no nystagmus, and no lid ptosis Oral: normal teeth, normal lips, normal gums, normal hard palate, normal anterior tongue, and oral mucosa moist Oropharynx: normal-appearing mucosa, no pharyngitis, no exudate, tonsils surgically absent, and normal soft palate and uvula TMJ: no pain, crepitus, or trismus Neck:normal, supple, no adenopathy, thyroid normal in size, no nodules or tenderness, no neck masses palpable, and carotids normal Heart: Regular rate Respiration: No stridor, Normal respiratory effort. Neurologic: Grossly normal Alert Oriented X 3 Affect normal Cranial nerves 2 -12 grossly intact ASSESSMENT/PLAN: Stacey was seen today for post-op. Diagnoses and all orders for this visit: Obstructive sleep apnea Stacey Sahu was counseled that she is a candidate for implantation of the inspire hypoglossal nerve stimulator. Patient has the surgery scheduled for 08/01/2024. I specifically counseled that the patient should discontinue her Mobic 10 days prior to surgery. We did discuss the risks, procedures, and post operative instructions associated with the Inspire Implantation. Patient is in agreement with the treatment plan, signed the consent form, and will follow up with me 2 weeks after surgery. Stacey Sahu was counseled about the surgical procedure for Inspire implant placement and its inherent risks which include, but are not limited to; infection, bleeding, scar, numbness, lower lip weakness, changes in speech articulation and swallowing, impaired or decreased tongue motion, tongue numbness, decreased taste, pneumothorax (collapsed lung), implant failure, anesthesia complications, need for further surgery including the need to remove the entire implant Scribe Statement: Scribed for and in the presence of Jeff Rossi MD by Varinder Jose (scribe). Varinder Jose 05/17/2024 8:18 AM Provider Statement: I Jeff Rossi MD personally performed the services described in the documentation as described by the above named scribe in my presence. It is both accurate and complete at the time of final signature. Dr. Jeff Rossi 05/17/2024 9:20 AM Please note that parts of this chart were generated using voice recognition [employer] dictation software. Although every effort was made to ensure the accuracy of this automated metal baler, some errors in metal baler may have occurred. Varinder Jose 05/17/24 0744 Varinder oJse 05/17/24 0819 Varinder Jose 05/17/24 0820 documented in this encounter [facility] 05-17-2024 Instructions Jeff Rossi MD - 05/17/2024 8:15 AM EST Based on today's evaluation, I recommend: The following surgical procedure: Inspire Implantation Stacey Sahu was counseled about the surgical procedure for Inspire implant placement and its inherent risks which include, but are not limited to; Infection, bleeding, scar, numbness, lower lip weakness, changes in speech articulation and swallowing, impaired or decreased tongue motion, tongue numbness, decreased taste, anesthesia complications, need for further surgery I recommend that you follow up with me: 2 week(s) after surgery. I recommend that you sign up for MY CHART so that I can send you test results and communicate other information pertaining to the management of your health care. The instructions to gain access to MY CHART are at the bottom of this summary. If you are not signed up for access to MY CHART and have not received notification of ANY test result within 7 days, please call [phone] to leave a request for your results. During normal business hours, Dr. Rossi and the other health care providers are treating patients in the office or performing surgery, so this will require a follow up telephone call from a health care provider. If you have not been contacted about your test results, do not assume that your test results are normal. If you need to schedule a test such as a CT scan, Ultrasound, MRI or PET scan, please call [facility] Scheduling at [phone]. If you need to be scheduled for surgery, please call Shaila Savage, Surgery Coordinator at [phone], or our main number [phone] if you have not received a return call within 2 business days. If you are going to have surgery, please carefully read the Instructions for Discontinuing Medications Before Surgery below. Your health care needs are my primary concern. Please let me know how we can serve you better so that we can improve the quality of care that we provide to you and our other patients. Be well! Instructions for Discontinuing Medications Before Surgery This document lists some common medications and supplements that may need to be discontinued prior to your procedure. Following these instructions may reduce side-effects and complications. It is safe to take Tylenol (acetaminophen), unless your doctor tells you otherwise. Seven (7) days before planned surgery: stop taking Non-Steroidal Anti-Inflammatory Drugs (NSAIDs) and certain herbal and weight loss products. (Note: the medications listed are selective and do not include all medications that affect bleeding.) You may need to stop taking aspirin one week (7 days) before planned surgery Please read below Aspirin (and medications that contain aspirin): Many non-prescription ([id number] or OTC) medications contain aspirin. If you are unsure whether a medication you take has aspirin, please ask your pharmacist or your surgeon's office. You must ask your surgical team if they want you to continue taking, or stop taking aspirin before your procedure. Medications containing aspirin that should be stopped 7 days before surgery: Saritha-Manitou Anacin Aspirin Fiorinal Ascriptin Pamela Bufferin Lortab ASA Darvon Ecotrin Excedrin Percodan Midol Pepto-Bismol Talwin Examples of Non-Steroidal Anti-Inflammatory Drugs (NSAIDs) that should be stopped 7 days before surgery: Advil (ibuprofen) Aleve (naproxen) Anaprox (naproxen) Arthrotec (diclofenac) Cataflam (diclofenac) Clinoril (sulindac) Daypro (oxaprozin) Disalcidv (salsalate) Feldene (piroxicam) Haltran (ibuprofen) Lodine (etodolac) Medipren (ibuprofen) Midol (ibuprofen) Motrin (ibuprofen) Nalfon (fenoprofen) Naprelan (naproxen) Naprosyn (naproxen) Nuprin (ibuprofen) Orudis (ketoprofen) Relafen (nabumetone) Tolectin (tolmetin) Trilisate (salicylate) Voltaren (diclofenac) Examples of weight-loss products and nutritional or herbal supplements that should be stopped 7 days before surgery: Alpha-lipoic acid Acetyl- l-carnitine Cinnamon Chamomile Creatine Echinacea Ephedra Fish Oil Garlic Diya Gingko biloba Ginseng Glucosamine- Chondroitin Glutamine Goldenseal L-carnosine Licorice Kava kava Milk thistle Multivitamin Walthall-3 Resveratrol Skullcap [facility] Vitamin E Adipex (phentermine) Jacob (orlistat) Hydroxycut Garcinia Cambogia Raspberry Ketones [id number] should be stopped 14 days before surgery You will receive specific instructions regarding your insulin and anti-coagulant/anti-platelet medications (if applicable). -- documented in this encounter [facility] 05-09-2024 Telephone encounter Note PSS calling from Dr Rossi's office to ask how soon the PT could be scheduled for surgery for inspire implant, nerve stimulator. General for 3 hours. Please advise [phone] ask to speak with Alejandra or [place]. [facility] 05-09-2024 Miscellaneous Notes PSS calling from Dr Rossi's office to ask how soon the PT could be scheduled for surgery for inspire implant, nerve stimulator. General for 3 hours. Please advise [phone] ask to speak with Alejandra or [place]. documented in this encounter [facility] 05-09-2024 Miscellaneous Notes Surgery Scheduling Request 05/09/24 Patient: Stacey Sahu : 1975 Surgical Procedure(s): Inspire Anesthesia: General Surgery Time: 3 hours Facility Preference: No preference Post Op Destination: Outpatient Preop Anesthesia Appointment?: Yes Medical Clearance Required?: No Nerve Monitor? Yes Special Equipment? Inspire When should patient follow up after surgery? One week Additional Comments: Krystyna/Pal 05-09, Called patient to schedule Inspire Stacey priest mentioned she's having hip replacement Jul 01. I called her Ortho Surgeon at [facility], Dr Iwona Mckeon to ask about timeframe for being safe to have this surgery after her hip replacement recovery. Dr Iwona Mckeon nurse said she would call me back. documented in this encounter [facility] 05-09-2024 Telephone encounter Note Surgery Scheduling Request 05/09/24 Patient: Stacey Sahu : 1975 Surgical Procedure(s): Inspire Anesthesia: General Surgery Time: 3 hours Facility Preference: No preference Post Op Destination: Outpatient Preop Anesthesia Appointment?: Yes Medical Clearance Required?: No Nerve Monitor? Yes Special Equipment? Inspire When should patient follow up after surgery? One week Additional Comments: Krystyna/Pal [facility] Work Phone: 05-09-2024 Telephone encounter Note 05-09, Called patient to schedule Inspire installation, Stacey mentioned she's having hip replacement Jul 01. I called her Ortho Surgeon at [facility], Dr Iwona Mckeon to ask about timeframe for being safe to have this surgery after her hip replacement recovery. Dr Iwona Mckeon nurse said she would call me back. [facility] 05-02-2024 Instructions Formatting of th is note might be different from the original. Your surgery/procedure is scheduled at [facility] on 05/09/2024 at 10:30 am Arrival Time 8:[address] [facility] Address: [address] [place] [address], [id number] [address] in the Emergency Center Parking lot. Report to the service desk lead in the Emergency/Surgery Registration lobby of the hospital. Notify your SURGEON if you develop any illness such as a cold, cough, fever, sore throat, vomiting or are hospitalized between now and your surgery. Please call Pre-Admission Clinic at [phone] if you have any questions prior to surgery. For questions the morning of surgery, call the Pre-op Department at [phone]. Medication Instructions (Do not stop your medications without consulting the prescribing physician). Take the following medications the morning of surgery with a sip of water: NONE Take inhalers as prescribed the morning of surgery. Due to the risk associated with these medications. If these medications are not held per instruction below, your surgery is at an increased risk for cancellation SGLT2 Medications- Hold 3 days prior to surgery: Jardiance, Empagliflozin, Farxiga, Dapagliflozin, Invokana, Canagliflozin, Trijardy, Synjardy GLP-1 Medications (Injection or Pill)- If taken daily hold day of surgery. If taken weekly, hold 1 week prior to surgery: Adlyxin, Byetta, Bydureon, Ozempic, Rybelsus,Trulicity, Victoza, Wegovy, Lixisenatide, Exenatide, Semaglutide, Dulaglutide, Liraglutide GIP/GLP-1(Injection or Pill)- If taken daily hold day of surgery. If taken weekly, hold 1 week prior to surgery: Mounjaro . Blood thinners: Please contact your prescribing physician regarding a stop/hold date for these medications. Medications such as Coumadin, Heparin, Aspirin, Plavix, Eliquis, Pradaxa Diabetics: If you take insulin, contact your prescribing doctor for instructions on how to manage this the night before and the morning of surgery. Non-steriodal Anti-Inflammatory Drugs (NSAIDS)- Hold 3 days prior to surgery unless otherwise directed by your surgeon. Vitamins/Herbal Products: You may continue to take your prescribed vitamins such as potassium, iron, vitamin B, vitamin C, or multivitamin unless specifically instructed by your surgeon to hold. STOP taking all herbal products/teas one week prior to your surgery. Marijuana: Stop marijuana 72 hours prior to surgery, stop CBD oil 48 hours prior to surgery. If you have been given bowel prep instructions by your surgeon, please call the surgeon's office with any questions about these instructions. What do I do the day of Surgery? Age 2 through adult - Stop all solids by midnight, You may have clear liquids up to 2 hours before surgery, unless otherwise instructed by your surgeon Clear liquids are: water, sports drinks such as Gatorade or G2, or apple juice. You may NOT have: tube feedings, dairy products, alcoholic beverages, orange juice, or any liquids with solids or pulp in it If applicable, shower again with CHG soap the morning of your surgery. If you received a green plastic bracelet, bring it with you the day of surgery and your nurse will put it on you. What do I need to do to prepare for surgery? If you will be going home the same day as your surgery, arrange for an adult over [address] Riding in a bus or taxi by yourself is not permitted. You should not smoke or drink alcohol 24 hours before your surgery. Smoking increases the risk of breathing problems after surgery. Alcohol thins the blood and may cause bleeding problems during surgery If you have been assigned JOAN Education by your surgeon's office, please complete this education prior to your surgery. For questions regarding JOAN education, reach out to your surgeons office. If you have been given a prescription for occupational, physical or speech therapy, please set up these appointments before your procedure. If you would like to schedule therapy at a [facility] facility, please call [phone] ([phone]). Do not use lotions, creams, powders, perfume, make up, cologne or after-shaves day of surgery. Remove ALL jewelry including wedding rings, body piercings, hair extensions that contain metal, nail bangladeshi, make-up, and contact lens. You may brush your teeth the morning of surgery, but do not swallow the water. Wear your dentures and partial plates to the hospital (no adhesive). Shower the night the before. If applicable, use the CHG (chlorhexidine gluconate) soap or wipes. Please be advised, [facility] has transitioned to a cashless payment system. What should I bring to the hospital? If you received a green plastic bracelet, bring it with you the day of surgery and your nurse will put it on you. Eyeglass or contact lens case If you will be spending the night, please bring personal care items and leave them in the car until you are taken to your room after surgery. Leave ALL valuables at home. If any of these instructions conflict with those you recieved from the surgeon, please seek clarification from your surgeon's office. DEEP BREATHING EXERCISES This exercise helps promote good air exchange and helps to prevent pneumonia after surgery. Breathe in slowly and deeply through the nose. Hold your breath for a few seconds and then exhale slowly through the mouth. Repeat this three times and then cough. Coughing helps to clear your lungs. If you have had a surgery with an incision into your abdomen or chest, press gently against your incision with a pillow or a folded blanket when you cough. Please be aware - it may not be sheriff to cough following some types of surgeries involving the eyes, ears, sinuses and throat. Always follow your doctor's instructions. LEG EXERCISES These exercises help promote good circulation and help to prevent blood clots after surgery. Point your toes to the ceiling and then point them to the wall. Do this slowly about 15-20 times. You may also move your feet in circles. Do the exercise that is most comfortable for you. If you have had surgery involving your shoulder or arm, we recommend you move your fingers. PRACTICING We ask that you begin practicing these exercises before your surgery. After surgery try to do both exercises at least every 2 hours during the day and early evening. SURGICAL SITE INFECTION AND PREVENTION What is a Surgical Site Infection? Infection can happen to the area of the body where surgery is done. This is called a surgical site infection (SSI). A SSI does not happen very often. Can SSIs be treated? Antibiotics are used to treat SSI. Some patients may need another surgery to treat the infection. The doctor will discuss treatment options with you. What are some of the things that hospitals are doing to prevent SSIs? Soap and water or alcohol hand rub are used before and after caring for each patient.Special soap is used to clean surgery workers hands and arms just before the surgery. Masks, gowns, gloves and hair covers are worn during the surgery to keep the area clean. Hair in the surgery area may be removed with clippers (not razors). A special soap that kills germs is used to clean the skin at the surgery site. Antibiotics may be given before the surgery starts. What can you do to prevent SSIs? Before surgery: You may be asked to shower or bathe with a special soap that kills germs the night before and the day of surgery. Use the soap as you were told. If you smoke, stop or cut down. Ask your doctor about ways to quit. Do not shave near where you will have surgery. Shaving can irritate the skin and make it easier to get and infection. After surgery: Be sure that the doctors and nurses clean their hands before and after touching you. Be sure your family and friends clean their hands before and after visiting you. Do not be afraid to remind them. * Care for your wound at home as told by your doctor or nurse * Call your doctor right away if you have fever, redness, increased pain, or drainage at the surgery site. Further questions? Contact the doctor, nurse or the Infection Prevention and Control department if you have any questions. PATIENT RIGHTS AND RESPONSIBILITIES As a patient at [facility], you have the right to: Receive medical care and be informed of who is taking care of you Be treated with dignity and respect Have a family member/wholesale representative of choice and your physician notified of your admission Receive information and actively participate in decisions about your care and treatment Refuse care, treatment and services Decide who may provide your support and speak for you Access judaism and spiritual services Participate in ethical issues and questions about your care Receive private and confidential care Have appropriate assessment and management of your pain Know guest visitation restrictions or limitations Have an advance directive Access protective services Consent or refuse to participate in research studies or production or recordings, films or other images Have resolution of your complaints Receive information of hospital charges and payment methods Patient/patient wholesale representative responsibilities are to: Provide information about health status to facilitate care, treatment and services Follow the treatment, plan, keep appointments and speak up when you do not understand the plan Respect the rights of other patients and healthcare personnel Follow organizational rules and regulations that support quality care and a safe environment Fulfill financial obligations as promptly as possible [facility] 05-02-2024 Miscellaneous Notes Your surgery/procedure is scheduled at [facility] on 05/09/2024 at 10:30 am Arrival Time 8:[address] [facility] Address: [address] [place] [address], [address] [place] [address] in the Emergency Center Parking lot. Report to the service desk lead in the Emergency/Surgery Registration lobby of the hospital. Notify your SURGEON if you develop any illness such as a cold, cough, fever, sore throat, vomiting or are hospitalized between now and your surgery. Please call Pre-Admission Clinic at [phone] if you have any questions prior to surgery. For questions the morning of surgery, call the Pre-op Department at [phone]. Medication Instructions (Do not stop your medications without consulting the prescribing physician). Take the following medications the morning of surgery with a sip of water: NONE Take inhalers as prescribed the morning of surgery. Due to the risk associated with these medications. If these medications are not held per instruction below, your surgery is at an increased risk for cancellation SGLT2 Medications- Hold 3 days prior to surgery: Jardiance, Empagliflozin, Farxiga, Dapagliflozin, Invokana, Canagliflozin, Trijardy, Synjardy GLP-1 Medications (Injection or Pill)- If taken daily hold day of surgery. If taken weekly, hold 1 week prior to surgery: Adlyxin, Byetta, Bydureon, Ozempic, Rybelsus,Trulicity, Victoza, Wegovy, Lixisenatide, Exenatide, Semaglutide, Dulaglutide, Liraglutide GIP/GLP-1(Injection or Pill)- If taken daily hold day of surgery. If taken weekly, hold 1 week prior to surgery: Mounjaro . Blood thinners: Please contact your prescribing physician regarding a stop/hold date for these medications. Medications such as Coumadin, Heparin, Aspirin, Plavix, Eliquis, Pradaxa Diabetics: If you take insulin, contact your prescribing doctor for instructions on how to manage this the night before and the morning of surgery. Non-steriodal Anti-Inflammatory Drugs (NSAIDS)- Hold 3 days prior to surgery unless otherwise directed by your surgeon. Vitamins/Herbal Products: You may continue to take your prescribed vitamins such as potassium, iron, vitamin B, vitamin C, or multivitamin unless specifically instructed by your surgeon to hold. STOP taking all herbal products/teas one week prior to your surgery. Marijuana: Stop marijuana 72 hours prior to surgery, stop CBD oil 48 hours prior to surgery. If you have been given bowel prep instructions by your surgeon, please call the surgeon's office with any questions about these instructions. What do I do the day of Surgery? Age 2 through adult - Stop all solids by midnight, You may have clear liquids up to 2 hours before surgery, unless otherwise instructed by your surgeon Clear liquids are: water, sports drinks such as Gatorade or G2, or apple juice. You may NOT have: tube feedings, dairy products, alcoholic beverages, orange juice, or any liquids with solids or pulp in it If applicable, shower again with CHG soap the morning of your surgery. If you received a green plastic bracelet, bring it with you the day of surgery and your nurse will put it on you. What do I need to do to prepare for surgery? If you will be going home the same day as your surgery, arrange for an adult over [address] Riding in a bus or taxi by yourself is not permitted. You should not smoke or drink alcohol 24 hours before your surgery. Smoking increases the risk of breathing problems after surgery. Alcohol thins the blood and may cause bleeding problems during surgery If you have been assigned JOAN Education by your surgeon's office, please complete this education prior to your surgery. For questions regarding JOAN education, reach out to your surgeons office. If you have been given a prescription for occupational, physical or speech therapy, please set up these appointments before your procedure. If you would like to schedule therapy at a [facility] facility, please call [phone] ([phone]). Do not use lotions, creams, powders, perfume, make up, cologne or after-shaves day of surgery. Remove ALL jewelry including wedding rings, body piercings, hair extensions that contain metal, nail bangladeshi, make-up, and contact lens. You may brush your teeth the morning of surgery, but do not swallow the water. Wear your dentures and partial plates to the hospital (no adhesive). Shower the night the before. If applicable, use the CHG (chlorhexidine gluconate) soap or wipes. Please be advised, [employer] has transitioned to a cashless payment system. What should I bring to the hospital? If you received a green plastic bracelet, bring it with you the day of surgery and your nurse will put it on you. Eyeglass or contact lens case If you will be spending the night, please bring personal care items and leave them in the car until you are taken to your room after surgery. Leave ALL valuables at home. If any of these instructions conflict with those you recieved from the surgeon, please seek clarification from your surgeon's office. DEEP BREATHING EXERCISES This exercise helps promote good air exchange and helps to prevent pneumonia after surgery. Breathe in slowly and deeply through the nose. Hold your breath for a few seconds and then exhale slowly through the mouth. Repeat this three times and then cough. Coughing helps to clear your lungs. If you have had a surgery with an incision into your abdomen or chest, press gently against your incision with a pillow or a folded blanket when you cough. Please be aware - it may not be sheriff to cough following some types of surgeries involving the eyes, ears, sinuses and throat. Always follow your doctor's instructions. LEG EXERCISES These exercises help promote good circulation and help to prevent blood clots after surgery. Point your toes to the ceiling and then point them to the wall. Do this slowly about 15-20 times. You may also move your feet in circles. Do the exercise that is most comfortable for you. If you have had surgery involving your shoulder or arm, we recommend you move your fingers. PRACTICING We ask that you begin practicing these exercises before your surgery. After surgery try to do both exercises at least every 2 hours during the day and early evening. SURGICAL SITE INFECTION AND PREVENTION What is a Surgical Site Infection? Infection can happen to the area of the body where surgery is done. This is called a surgical site infection (SSI). A SSI does not happen very often. Can SSIs be treated? Antibiotics are used to treat SSI. Some patients may need another surgery to treat the infection. The doctor will discuss treatment options with you. What are some of the things that hospitals are doing to prevent SSIs? Soap and water or alcohol hand rub are used before and after caring for each patient.Special soap is used to clean surgery workers hands and arms just before the surgery. Masks, gowns, gloves and hair covers are worn during the surgery to keep the area clean. Hair in the surgery area may be removed with clippers (not razors). A special soap that kills germs is used to clean the skin at the surgery site. Antibiotics may be given before the surgery starts. What can you do to prevent SSIs? Before surgery: You may be asked to shower or bathe with a special soap that kills germs the night before and the day of surgery. Use the soap as you were told. If you smoke, stop or cut down. Ask your doctor about ways to quit. Do not shave near where you will have surgery. Shaving can irritate the skin and make it easier to get and infection. After surgery: Be sure that the doctors and nurses clean their hands before and after touching you. Be sure your family and friends clean their hands before and after visiting you. Do not be afraid to remind them. * Care for your wound at home as told by your doctor or nurse * Call your doctor right away if you have fever, redness, increased pain, or drainage at the surgery site. Further questions? Contact the doctor, nurse or the Infection Prevention and Control department if you have any questions. PATIENT RIGHTS AND RESPONSIBILITIES As a patient at [facility], you have the right to: Receive medical care and be informed of who is taking care of you Be treated with dignity and respect Have a family member/wholesale representative of choice and your physician notified of your admission Receive information and actively participate in decisions about your care and treatment Refuse care, treatment and services Decide who may provide your support and speak for you Access judaism and spiritual services Participate in ethical issues and questions about your care Receive private and confidential care Have appropriate assessment and management of your pain Know guest visitation restrictions or limitations Have an advance directive Access protective services Consent or refuse to participate in research studies or production or recordings, films or other images Have resolution of your complaints Receive information of hospital charges and payment methods Patient/patient wholesale representative responsibilities are to: Provide information about health status to facilitate care, treatment and services Follow the treatment, plan, keep appointments and speak up when you do not understand the plan Respect the rights of other patients and healthcare personnel Follow organizational rules and regulations that support quality care and a safe environment Fulfill financial obligations as promptly as possible documented in this encounter [facility] 04-19-2024 Miscellaneous Notes Surgery Scheduling Request 04/19/24 Patient: Stacey Sahu : 1975 Surgical Procedure(s): DISE Anesthesia: MAC Surgery Time: 30 min Facility Preference: No preference When should patient follow up after surgery? 1-2 weeks Left message to schedule surgery documented in this encounter [facility] 04-19-2024 Telephone encounter Note Surgery Scheduling Request 04/19/24 Patient: Stacey Sahu : 1975 Surgical Procedure(s): DISE Anesthesia: MAC Surgery Time: 30 min Facility Preference: No preference When should patient follow up after surgery? 1-2 weeks [employer] Work Phone: 04-19-2024 Telephone encounter Note Left message to schedule surgery [employer] [facility] 04-19-2024 History of Presen t illness Narrative Images from the original note were not included. [facility] [address] [place] [place] [id number] SUBJECTIVE: Patient ID ([id number]): Stacey Sahu is a 48 y.o. female presents today for Chief Complaint Patient presents with inspire consult HPI: Stacey Sahu is a 48 y.o. female seen at the request of Essie Ryan APRN-* for evaluation of obstructive sleep apnea. Patient reports she was referred by Trinh Eduardo MD of sleep medicine. Patient reports that she has tried using CPAP intermittently for 10 years but cannot tolerate CPAP due to claustrophobia. HISTORY: Past Medical History: Diagnosis Date Anxiety Arthritis Bipolar disorder ([facility]) Chronic pain disorder Crohn's colitis ([facility]) Depression GERD (gastroesophageal reflux disease) H/O methicillin resistant Staphylococcus aureus infection Hyperlipidemia Joint pain Obesity Pleurisy Pulmonary hypertension ([facility]) Pulmonary hypertension ([facility]) Sleep apnea cpap Past Surgical History: Procedure Laterality Date COLON SURGERY part of bowel removed d/t crohns dx COLONOSCOPY HYSTERECTOMY 2017 INJECTION BURSA LARGE JOINT Right Hip Right 09/01/2023 Performed by Pj Gannon MD at [facility] INJECTION SPINE TRANSFORAMINAL Right L 5,1 Nroot Right 05/26/2023 Performed by Pj Gannon MD at [facility] LYMPH NODE BIOPSY RELEASE DEQUERVAINS CONTRACTURE Right 10/17/2018 Performed by Dereck Bagley DO at [facility] THYROIDECTOM[facility], PARTIAL TONSILLECTOMY TUBAL LIGATION Family History Problem Relation Age of Onset [...] Never Smokeless tobacco: Never Vaping Use Vaping status: Never Used Substance and Sexual Activity Alcohol use: No Drug use: No Sexual activity: Defer Other Topics Concern Not on file Social History Narrative Not on file Social Drivers of Health Financial Resource Strain: Patient Declined (06/14/2023) Received from [facility] Overall Financial Resource Strain (CARDIA) Difficulty of Paying Living Expenses: Patient declined Food Insecurity: No Food Insecurity (09/12/2023) Hunger Screening Food Insecurity - Worry: Never True Food Insecurity - Inability: Never True Transportation Needs: No Transportation Needs (06/14/2023) Received from [facility] PRAPARE - Transportation Lack of Transportation (Medical): No Lack of Transportation (Non-Medical): No Physical Activity: Unknown (06/14/2023) Received from [facility] Exercise Vital Sign Days of Exercise per Week: 2 days Minutes of Exercise per Session: Patient declined Stress: Patient Declined (06/14/2023) Received from [facility] [employer] - Occupational Stress Questionnaire Feeling of Stress : Patient declined Social Connections: Unknown (06/14/2023) Received from [facility] Social Connection and Isolation Panel [NHANES] Frequency of Communication with Friends and Family: Patient declined Frequency of Social Gatherings with Friends and Family: Patient declined Attends Scientologist Services: Patient declined Active Member of Clubs or Organizations: Patient declined Attends Club or Organization Meetings: Patient declined Marital Status: Interpersonal Safety: Unknown (08/17/2023) [facility] from [facility] Safety & Environment Fear of Current or Ex-Partner: Not on file Emotionally Abused: Not on file Physically Abused: Not on file Sexually Abused: Not on file Physically or Sexually Abused: Not on file Housing Instability: Unknown (06/14/2023) Re[facility] from [facility] Housing Stability Vital Sign Unable to Pay for Housing in the Last Year: No Number of Places Lived in the Last Year: Not on file Unstable Housing in the Last Year: No Allergies Allergen Reactions Penicillins As a child Current Outpatient Medications Medication Sig Dispense Refill atorvastatin (LIPITOR) 10 mg tablet take 1 tablet by mouth once daily busPIRone (BUSPAR) 15 mg tablet Take 0.5 tablets (7.5 mg total) by mouth in the morning and 0.5 tablets (7.5 mg total) before bedtime. cetirizine (ZyrTEC) 5 mg tablet Take 1 tablet (5 mg total) by mouth in the morning. colchicine (COLCRYS) 0.6 mg tablet Take 1 tablet (0.6 mg total) by mouth in the morning. Verified with [facility] . meloxicam (MOBIC) 15 mg tablet take 1 tablet by mouth every morning 30 tablet 1 omeprazole (PriLOSEC) 40 mg capsule Take 1 capsule (40 mg total) by mouth in the morning. GERD Verified [facility]. pravastatin (PRAVACHOL) 40 mg tablet Take 1 tablet (40 mg total) by mouth nightly Indications: excessive fat in the blood. hyperlipidemia Verified [facility] ambrisentan (LETAIRIS ORAL) Take 10 mg by mouth daily. (Patient not taking: Reported on 04/19/2024) carBAMazepine (TEGretol) 200 mg tablet Take 300 mg by mouth nightly. moods verified [facility] (Patient not taking: Reported on 04/19/2024) citalopram (CeleXA) 40 mg tablet Take 40 mg by mouth daily. (Patient not taking: Reported on 04/19/2024) No current facility-administered medications for this visit. REVIEW OF SYSTEMS: Review of Systems Constitutional: Negative for chills and fever. HENT: Negative for congestion, ear discharge, ear pain, postnasal drip, rhinorrhea, sinus pressure, sinus pain and sore throat. Eyes: Negative for discharge and itching. Respiratory: Positive for apnea. Negative for cough and wheezing. Cardiovascular: Negative for chest pain and palpitations. Gastrointestinal: Negative for nausea and vomiting. Endocrine: Negative for cold intolerance and heat intolerance. Genitourinary: Negative for difficulty urinating and flank pain. Musculoskeletal: Negative for gait problem. Skin: Negative for color change. Allergic/Immunologic: Negative for environmental allergies and food allergies. Neurological: Negative for dizziness, light-headedness and headaches. Hematological: Does not bruise/bleed easily. Psychiatric/Behavioral: Negative for confusion. Data Reviewed: 04/19/2024: Sleep Study PHYSICAL EXAMINATION: Temp 36.7 C (98.1 F) Ht 152.4 cm (5') Wt 88.8 kg (195 lb 12.8 oz) BMI 38.24 kg/m Constitutional: Healthy, alert, cooperative, and in no distress and normal ablility to communicate . Voice normal quality. Head/Face: Normocephalic, without obvious abnormality, salivary glands normal, atraumatic, sinuses nontender, and facial nerve intact Eyes: No gross abnormalities., EOMI, no nystagmus, and no lid ptosis Ear: RIGHT: hearing normal, external ear normal, canal normal, and TM normal without fluid or infection LEFT: hearing normal, external ear normal, canal normal, and TM normal without fluid or infection Nose: External nose appears normal, septum midline, normal mucosa, normal turbinates, and no nasal polyps or masses Oral: normal teeth, normal lips, normal gums, normal hard palate, normal anterior tongue, and oral mucosa moist Oropharynx: normal-appearing mucosa, no pharyngitis, no exudate, tonsils surgically absent, and normal soft palate and uvula TMJ: no pain, crepitus, or trismus Neck:normal, supple, no adenopathy, thyroid normal in size, no nodules or tenderness, no neck masses palpable, and carotids normal Heart: Regular rate Respiration: No stridor, Normal respiratory effort. Neurologic: Grossly normal Alert Oriented X 3 Affect normal Cranial nerves 2 -12 grossly intact ASSESSMENT/PLAN: Diagnosis Plan 1. NIRMALA (obstructive sleep apnea) Stacey Sahu was counseled about the various surgical options for the treatment of obstructive sleep apnea (NIRMALA), including the Inspire hypoglossal nerve stimulator (https://www.inspiresleep.com/) , tonsillectomy with uvulopalatopharyngoplasty, and hyoid advancement surgery using the Airlift system for NIRMALA (iMusicTweet- https://www.Shijiebang.[employer]ification [employer]/ ). Stacey Sahu was counseled about the evaluative process for the Inspire upper airway stimulation device, which requires performance of drug-induced sleep endoscopy (DISE) to determine the pattern of pharyngeal collapse during obstructive episodes. Inspire is effective therapy for patients who manifest anterior-posterior collapse, but will not be effective for patients with concentric collapse.Patients must successfully pass DISE before they can be considered a candidate for Inspire. In addition, all patients who are being evaluated for the Inspire implant must be evaluated by a specialist in Sleep Medicine to confirm their candidacy for surgery. The sleep medicine specialist will also activate and adjust the Inspire device following surgery so that your obstructive sleep apnea is effectively managed. Stacey Sahu was counseled that CPAP provides the most predictable treatment outcomes for those patients with NIRMALA who are able to wear CPAP. Stacey Sahu wishes to proceed with drug-induced sleep endoscopy. Informed consent was obtained. Scribe Statement: Scribed for and in the presence of Jeff Rossi MD by Varinder Jose (scribe). Varinder Jose 04/19/2024 9:17 AM Provider Statement: I Jeff Rossi MD personally performed the services described in the documentation as described by the above named scribe in my presence. It is both accurate and complete at the time of final signature. Dr. Jeff Rossi 04/19/2024 5:48 PM Please note that parts of this chart were generated using voice recognition PPLCONNECT dictation software. Although every effort was made to ensure the accuracy of this automated metal baler, some errors in metal baler may have occurred. Varinder Jose 04/19/24 0747 Varinder Jose 04/19/24 0909 Varinder Jose 04/19/24 0910 Varinder Jose 04/19/24 0917 [facility] 04-19-2024 Instructions Jeff Rossi MD - 04/19/2024 8:30 AM EDT Images from the original note were not included. Based on today's evaluation, I recommend: Drug Induced Sleep Endoscopy for further evaluation of Inspire candidacy I recommend that you follow up with me: 1 week post DISE procedure I recommend that you sign up for MY CHART so that I can send you test results and communicate other information pertaining to the management of your health care. The instructions to gain access to MY CHART are at the bottom of this summary. If you are not signed up for access to MY CHART and have not received notification of ANY test result within 7 days, please call [phone] to leave a request for your results. During normal business hours, Dr. Rossi and the other health care providers are treating patients in the office or performing surgery, so this will require a follow up telephone call from a health care provider. If you have not been contacted about your test results, do not assume that your test results are normal. If you need to schedule a test such as a CT scan, Ultrasound, MRI or PET scan, please call [facility] Sched[facility] at [phone]. If you need to be scheduled for surgery, please call [facility] Surgery Coordinator at [phone], or [facility] at [phone] or our main number [phone] if you have not received a return call within 2 business days. If you are going to have surgery, please carefully read the Instructions for Discontinuing Medications Before Surgery below. Your health care needs are my primary concern. Please let me know how we can serve you better so that we can improve the quality of care that we provide to you and our other patients. Be well! Instructions for Discontinuing Medications Before Surgery This document lists some common medications and supplements that may need to be discontinued prior to your procedure. Following these instructions may reduce side-effects and complications. It is safe to take Tylenol (acetaminophen), unless your doctor tells you otherwise. Seven (7) days before planned surgery: stop taking Non-Steroidal Anti-Inflammatory Drugs (NSAIDs) and certain herbal and weight loss products. (Note: the medications listed are selective and do not include all medications that affect bleeding.) You may need to stop taking aspirin one week (7 days) before planned surgery Please read below Aspirin (and medications that contain aspirin): Many non-prescription (psrt-yne-vixnqet or OTC) medications contain aspirin. If you are unsure whether a medication you take has aspirin, please ask your pharmacist or your surgeon's office. You must ask your surgical team if they want you to continue taking, or stop taking aspirin before your procedure. Medications containing aspirin that should be stopped 7 days before surgery: Saritha-Manitou Anacin Aspirin Fiorinal Ascriptin Pamela Bufferin Lortab ASA Darvon Ecotrin Excedrin Percodan Midol Pepto-Bismol Talwin Examples of Non-Steroidal Anti-Inflammatory Drugs (NSAIDs) that should be stopped 7 days before surgery: Advil (ibuprofen) Aleve (naproxen) Anaprox (naproxen) Arthrotec (diclofenac) Cataflam (diclofenac) Clinoril (sulindac) Daypro (oxaprozin) Disalcidv (salsalate) Feldene (piroxicam) Haltran (ibuprofen) Lodine (etodolac) Medipren (ibuprofen) Midol (ibuprofen) Motrin (ibuprofen) Nalfon (fenoprofen) Naprelan (naproxen) Naprosyn (naproxen) Nuprin (ibuprofen) Orudis (ketoprofen) Relafen (nabumetone) Tolectin (tolmetin) Trilisate (salicylate) Voltaren (diclofenac) Examples of weight-loss products and nutritional or herbal supplements that should be stopped 7 days before surgery: Alpha-lipoic acid Acetyl- l-carnitine Cinnamon Chamomile Creatine Echinacea Ephedra Fish Oil Garlic Diya Gingko biloba Ginseng Glucosamine- Chondroitin Glutamine Goldenseal L-carnosine Licorice Kava kava Milk thistle Multivitamin Walthall-3 Resveratrol Skullcap Jenny's wort Vitamin E Adipex (phentermine) Jacob (orlistat) Hydroxycut Garcinia Cambogia Raspberry Ketones [id number] should be stopped 14 days before surgery You will receive specific instructions regarding your insulin and anti-coagulant/anti-platelet medications (if applicable). -- documented in this encounter [facility] 04-16-2024 Note HNO ID: [id number] Author: LOIS MCKEON MD Service: ? Author Type: Physician Type: Progress Notes Filed: 04/16/2024 13:49 Note Text: Follow-up right hip and to go over the results of her MRI.She has a large degenerative labral tear and a large osteophyte from the lateral posterior lateral aspect of the acetabulum. She is get degenerative changes in the hip joint. Her pain is groin primarily. We reviewed the studies and she has failed conservative treatment. Unfortunately there is nothing else I can offer her at this point short of a hip replacement. Risks and benefits were discussed and all questions answered. Will schedule this for later in the winter. Assessment right hip arthritis. Lois Mckeon MD [facility] 04-16-2024 History of Presen t illness Narrative Follow-up right hip and to go over the results of her MRI.She has a large degenerative labral tear and a large osteophyte from the lateral posterior lateral aspect of the acetabulum. She is get degenerative changes in the hip joint. Her pain is groin primarily. We reviewed the studies and she has failed conservative treatment. Unfortunately there is nothing else I can offer her at this point short of a hip replacement. Risks and benefits were discussed and all questions answered. Will schedule this for later in the winter. Assessment right hip arthritis. Lois Mckeon MD documented in this encounter [facility] 04-10-2024 History of Presen t illness Narrative Associated Problem(s): Needs flu shot Pt declined Associated Problem(s): Anxiety Prn buspar Associated Problem(s): Bipolar disorder, unspecified (CMS/HCC) Will increase abilify to 15mg Fu in 6 weeks Associated Problem(s): PAH (pulmonary artery hypertension) (CMS/HCC) Saw cardiology in the past, was on letaris, no longer taking it or fu with cardiology Non compliant with PAP, looking into inspire No chest pain/pressure/dyspnea Associated Problem(s): Neuritis of left median nerve resolved Associated Problem(s): Neuritis of right median nerve resolved Images from the original note were not included. Stacey Sahu is a 48 y.o. female presents with chief complaint of No chief complaint on file. HPI: Here for recheck: Bipolar disorder: taking abilify, appetite is ok, sleep is ok, no SI/HI/hallucinations. No severe mood swings, but can get emotional and feel overwhelmed and cry easily. Feels her current medication is good at the current dose. Continues with ortho for hip related issues, had MRI, going back next week for results, if no acute findings may have a scope Neuritis bilat: last visit NSAID, cock up splints-could not tolerate wearing, however sxs are resolved at this time. NIRMALA: not compliant at wearing PAP, did see a specialist in [place] for eval for inspire, and is going through this process SUBJECTIVE: MEDICATIONS: Current Outpatient Medications Medication Instructions ARIPiprazole (ABILIFY) 15 mg, Oral, Daily atorvastatin (LIPITOR) 80 mg, Every morning busPIRone (BUSPAR) 7.5 mg, Oral, 2 times daily cetirizine (ZYRTEC) 10 mg, Oral, Daily meloxicam (MOBIC) 15 mg, Oral, Daily RT omeprazole (PRILOSEC) 40 mg, Oral, Daily before breakfast traMADol (ULTRAM) 50 mg, Oral, Every 6 hours ALLERGIES: Allergies Allergen Reactions Penicillins Other and Unknown As a child REVIEW OF SYMPTOMS: Review of Systems Constitutional: Negative for appetite change, chills and fever. HENT: Negative for congestion, ear pain and sore throat. Eyes: Negative for pain, discharge, redness and visual disturbance. Respiratory: Negative for cough, shortness of breath and wheezing. Cardiovascular: Negative for chest pain, palpitations and leg swelling. Gastrointestinal: Negative for abdominal pain, blood in stool, constipation, diarrhea, nausea and vomiting. Genitourinary: Negative for difficulty urinating, dysuria and frequency. Musculoskeletal: Positive for arthralgias. Negative for back pain, joint swelling and myalgias. Skin: Negative for rash and wound. Neurological: Negative for dizziness, tremors, seizures, syncope and headaches. Psychiatric/Behavioral: Negative for behavioral problems, self-injury and suicidal ideas. The patient is nervous/anxious. Mood fluctuations Hematological: Does not bruise/bleed easily. Endocrine: Negative for polydipsia, polyphagia and polyuria. Allergic/Immunologic: Positive for environmental allergies. Negative for food allergies. PAST MEDICAL HISTORY Past Medical History: Diagnosis Date Acute thigh pain, right Allergic rhinitis Anxiety 07/25/2023 Bipolar disorder ([facility]/HCC) Chest pain 02/09/2012 Chronic GERD Chronic rhinitis 2023 Constipation COVID-19 01/2022 Crohn's disease ([facility]/HCC) De Quervain's tenosynovitis, right Dyspnea on exertion Edema of extremities Elevated serum glucose Enlarged thyroid ([facility]/HCC) Flank pain 11/08/2022 Gross hematuria 11/08/2022 History of nausea Hot flashes Hyperlipidemia (CMS/HCC) 09/11/2023 Lumbar back pain with radiculopathy affecting right lower extremity Multiple thyroid nodules (CMS/HCC) Nocturia 01/14/2023 Obese 11/08/2022 Obesity, morbid ([facility]) NIRMALA (obstructive sleep apnea) Other acute sinusitis 06/07/2023 Other hyperlipidemia ([facility]/HCC) 12/14/2020 Pain of right upper extremity Pelvic pain 01/14/2023 Pulmonary arterial hypertension ([facility]/HCC) Right hip pain Shingles Shortness of breath Small bowel obstruction ([facility]/HCC) Superficial venous thrombosis of arm, right Trochanteric bursitis, right hip URI, acute 06/15/2023 Urine discoloration Weight gain Past Surgical History: Procedure Laterality Date COLECTOMY 2011 DORSAL COMPARTMENT RELEASE Right 10/17/2018 first- Dr. Bagley HYSTERECTOMY 09/22/2016 total IR FINE NEEDLE ASPIRATION THYROID 01/14/2021 IR FINE NEEDLE ASPIRATION THYROID 10/18/2022 LAPAROSCOPY DIAGNOSTIC / BIOPSY / ASPIRATION / LYSIS 07/15/2016 THYROID SURGERY 01/10/2023 r/o isthmus mass, (benign), Dr. Caceres TONSILLECTOMY 1988 TUBAL LIGATION Bilateral 2000 family history includes Cancer in her father and mother; Diabetes in her father; Heart disease in her father; Hypertension in her father. OBJECTIVE: Visit Vitals BP 120/88 (BP Location: Left arm, Patient Position: Sitting, BP Cuff Size: Large adult long) Pulse 96 Temp 98.8 F (Temporal) Resp 18 Ht 5' Wt 195 lb 6.4 oz SpO2 98% BMI 38.16 kg/m Smoking Status Never BSA 1.94 m Physical Exam Vitals and nursing note reviewed. Constitutional: General: She is not in acute distress. Appearance: Normal appearance. HENT: Head: Normocephalic and atraumatic. Right Ear: External ear normal. Left Ear: External ear normal. Nose: Nose normal. Mouth/Throat: Mouth: Mucous membranes are moist. Eyes: Extraocular Movements: Extraocular movements intact. Conjunctiva/sclera: Conjunctivae normal. Neck: Vascular: No carotid bruit. Cardiovascular: Rate and Rhythm: Normal rate and regular rhythm. Pulses: Normal pulses. Heart sounds: Normal heart sounds. Pulmonary: Effort: Pulmonary effort is normal. Breath sounds: Normal breath sounds. No wheezing or rales. Abdominal: General: Bowel sounds are normal. There is no distension. Palpations: Abdomen is soft. There is no mass. Tenderness: There is no abdominal tenderness. Musculoskeletal: General: Normal range of motion. Cervical back: Normal range of motion and neck supple. Right lower leg: No edema. Left lower leg: No edema. Skin: General: Skin is warm and dry. Capillary Refill: Capillary refill takes 2 to 3 seconds. Findings: No rash. Neurological: General: No focal deficit present. Mental Status: She is alert and oriented to person, place, and time. Psychiatric: Mood and Affect: Mood normal. Behavior: Behavior normal. Thought Content: Thought content normal. Judgment: Judgment normal. ASSESSMENT AND PLAN: Follow up in about 6 weeks (around 05/22/2024). Problem List Items Addressed This Visit PAH (pulmonary artery hypertension) (CMS/HCC) Saw cardiology in the past, was on letaris, no longer taking it or fu with cardiology Non compliant with PAP, looking into inspire No chest pain/pressure/dyspnea Chronic rhinitis Relevant Medications cetirizine (ZyrTEC) 10 MG tablet Anxiety Prn buspar Bipolar disorder, unspecified (CMS/HCC) - Primary Will increase abilify to 15mg Fu in 6 weeks Relevant Medications ARIPiprazole (Abilify) 15 MG tablet Body mass index (BMI) 38.0-38.9, adult Morbid (severe) obesity due to excess calories (CMS/HCC) Neuritis of left median nerve resolved Neuritis of right median nerve resolved Needs flu shot Pt declined Other Visit Diagnoses Gastroesophageal reflux disease, unspecified whether esophagitis present Relevant Medications omeprazole (PriLOSEC) [address] capsule documented in this encounter [facility] 03-19-2024 Note HNO ID: [id number] Author: LOIS MCKEON MD Service: ? Author Type: Physician Type: Progress Notes Filed: 03/19/2024 10:34 Note Text: She is here for chronic right hip and groin pain. Has been injected multiple times and done therapy. Takes medication. Has progressed to the point where she has pain that is affecting her quality of life. 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 Pain is [...] the scan is complete. Lois Mckeon MD [facility] 03-19-2024 History of Presen t illness Narrative She is here for chronic right hip and groin pain. Has been injected multiple times and done therapy. Takes medication. Has progressed to the point where she has pain that is affecting her quality of life. 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 Pain is [...] see back after the scan is complete. Losi Mckeon MD documented in this encounter [facility] 03-19-2024 Instructions Clarissa Zacarias RN - 03/19/2024 10:[address] Mckeon has ordered a cream that will be delivered to your home. The company, [employer], will call or text you from a [phone] phone number. Please reply or answer the call to start the process. If you do not hear from them within 48 hours, please call . documented in this encounter [facility] 03-19-2024 History of Presen t illness [...] PATIENT PRESENTS WITH AN IMPLANTABLE OR ATTACHED ROLLER LEVELER OPERATOR: No RADIOLOGY DEPARTMENT: General X-ray: Exam(s) Completed: Pelvis X-Ray: Pelvis with Hip Right PERIPHERAL IV DATA: Not applicable SIGNED BY: RT Rai(R) March 19, 2024 9:04 AM documented in this encounter [facility] 03-19-2024 Note HNO ID: [id number] Author: PAULETTE COREA RT(R) Service: ? Author Type: Technologist Type: Progress [...] PATIENT PRESENTS WITH AN IMPLANTABLE OR ATTACHED ROLLER LEVELER OPERATOR: No RADIOLOGY DEPARTMENT: General X-ray: Exam(s) Completed: Pelvis X-Ray: Pelvis with Hip Right PERIPHERAL IV DATA: Not applicable SIGNED BY: RT Rai(R) March 19, 2024 9:04 AM [facility] 03-18-2024 Telephone encounter Note Left message with pt to be sure to have report as well as images, but we may need an xray if do not have, he will look at xray and do assessment and determine if surgery will be an option. Clarissa Zacarias RN [facility] Work Phone: 03-18-2024 Miscellaneous Notes Left [...] at her appt on 03/19 Callback number: [phone] documented in this encounter [facility] 03-18-2024 Telephone encounter Note Name of Caller: stacey Relationship to patient: patient Last visit in this department: Visit date not found Reason for Call: Other : has questions about what to expect at her appt on 03/19 Callback number: [phone] [facility] 03-06-2024 Note SLEEP CLINIC INITIAL EVALUATION Date of Evaluation: 03/06/24 Referring Physician: Dr. Marzena Tapia Chief Complaints: NIRMALA and intolerance to CPAP History of Presenting Illness: Stacey Sahu is a 48 y.o. woman presenting to the sleep clinic for the first time. She is referred to us by her mortising machine operator for evaluation for Inspire??? therapy. She states [...] went to see Dr. Marzena Tapia at [place] earlier this year. She states that the [...] et al Anesthesiology 2008 and BJA 2011 [employer] Sleepiness Scale: How likely are you to [...] of dozing === (more content not included)... [facility] 03-06-2024 Note Currently resolved [facility] 03-06-2024 Note Currently stable and controlled and she is going for pulmonary appt today [facility] 03-06-2024 Note Lipid abnormalities are still elevated with Chol and LDL not within goal. D/w pt will increase lipitor to 80 mg daily and pt to call office for any myalgias or concerns, repeat labs in 2-3 months- LFT and Lipid levels. [facility] 03-06-2024 Note Pt is here for a six month follow up. Pt denies sob, chest pains, palpatations Review of Systems Cardiovascular: Chest pain: discomfort , intermittent. Palpitations: not as bad . All other systems reviewed and are negative. [facility] 03-06-2024 Note [facility]TP CARDIOLOGY PROGR ESS [...] she has appointment with pulmonary today in [place]- r/t NIRMALA untreated. Visit Vitals BP (!) [...] wave abnormality Anterolateral leads 05/13/2016 Echo - [place] Normal LV systolic function normal RV size/function [...] and lipid levels again in 2-3 months [facility] 11-28-2023 Hospital Discharg e instructions Patient [...] include: ?8 oz (237 mL) of milk, svtibfv-jpcwfjpoyzrl-mzabp milk, and calcium-fortifiedfruit juice. Calcium-fortified means that [...] ?Spinach (cooked), rhubarb, beets, sweet potatoes, and Guinean chard. ?Peanuts. ?Potato chips, samoan fries, and baked potatoes with skin on. ?Nuts and nut products. ?Chocolate. If you regularly take a diuretic medicine, make sure to eat at least 1 or 2 servings of fruits or vegetables that are high in potassium each day. These include: ?Avocado. ?Banana. ?[place], prune, carrot, or tomato juice. ?Baked potato. [...] magnesium, fish oil, or vitamin B6. Take vkxw-uzf-cjqmqqw and prescription medicines only as told by [...] Casseroles. Pizza. Lasagna. Frozen meals. Potato chips. Cypriot fries. The items listed above may not [...] provider. Document Revised: 09/22/2022 Document Reviewed: 09/22/2022 [employer] Patient Education 2022 Razz. Follow Up Care 05/29/2023 15:22:48 With:LESLIE JUNG PA-C, URL Address: [address] [place] [address] When: Unknown [facility] J[facility] 11-28-2023 Note - From: Sally Linda To: EU - Administrative; Sent: 11/28/2023 09:53:09 EDT Show up: 02/25/2024 09:52:00 EDT Subject: Ambulatory Reminder Due Date/Time: 11/24/2024 09:53:00 EDT Reminder/Recall Patient needs scheduled for a 1 yr f/u with MAGALYS and BEN with DA, due in 11/2024 [facility] 09-20-2023 Miscellaneous Notes [facility] Ortho called to say that they are out of network for Stacey's insurance. A referral form will be sent once she selects an orthopedic in-network documented in this encounter [facility] 09-20-2023 Telephone encounter Note [facility] called to say that they are out of network for Stacey's insurance. A referral form will be sent once she selects an orthopedic in-network [facility] 09-12-2023 History of Presen t illness Narrative [facility] [address] [place] [id number] Patient: Stacey Sahu Sex: female : 1975 Age: 48 y.o. PCP: ESSIE RYAN, LAY-TELEVISION TECHNICIAN 09/12/2023 Stacey Sahu is here for a(n) [...] patches min: NSAIDS, ice/heat, accupuncture, inj at [place] [facility] Mod relief: Narcotics Sign: Steroid inj by Ortho) for the symptoms. The treatment provided moderate relief. The effect of pain on patient's ADLS: Moderate Impairment. Past Medical History: Diagnosis Date Arthritis Bipolar disorder (CMS-HCC) Chronic pain disorder Crohn's colitis (CMS-HCC) Depression GERD (gastroesophageal reflux disease) H/O methicillin resistant Staphylococcus aureus infection Hyperlipidemia Joint pain Pleurisy Pulmonary hypertension (CMS-HCC) Pulmonary hypertension (CMS-[facility]) Sleep apnea cpap Past Surgical History: Procedure Laterality Date COLON SURGERY part of bowel removed d/t crohns dx HYSTERECTOMY 2017 INJECTION BURSA LARGE JOINT Right Hip Right 09/01/2023 Performed by Pj Gannon MD at [facility] INJE[facility] SPINE TRANSFORAMINAL Right L 5,1 Nroot Right 05/26/2023 Performed by Pj Gannon MD at [facility] RELEASE DEQUERVAINS CONTRACTURE Right 10/17/2018 Performed by Dereck Bagley DO at [facility] THYROIDECTOMY, PARTIAL Allergies Allergen Reactions Penicillins [...] while taking medications prescribed by this clinic. [facility] Orthopedic Referral - Right Hip [...] accurate and complete. Essie Dutton CNA 09/12/23 0802 ADELA Metz 09/12/23 [id number] documented in this encounter [facility] 08-29-2023 Note Pt to f/U with pulmo nology for further evaluation and mangement- she states she has been unable to wear Cpap and would like to see about Inspire implant. [facility] 08-29-2023 Note Will increase lipito r to 40 mg daily for better lipid management and repeat Lipid level and LFT in 2-3 months [facility] 08-29-2023 Note Stable no concerning symptoms [facility] UTP CARDIOLOGY PROGR ESS [...] reviewed and are negative. Previous HPI per Marita Monroe SHIPPING AND RECEIVING ASSOCIATE HPI Stacey Sahu is a 47 y.o. [...] Preserved LVEF - RVSP 27mmHg Normal cors ([facility] 03/2012) Exercise stress 2014- no ischemia [...] wave abnormality Anterolateral leads 05/13/2016 Echo - [place] Normal LV systolic function normal RV size/function No valve abnormality. RVSP 27mmHg 06/01/15 Echo [facility] left ventricular systolic functio (more content not included)... [facility] 08-29-2023 Note Patient here for 10 [...] All other systems reviewed and are negative. [facility] 07-11-2023 Evaluation note Encounter Date Diagnosis [...] treatment plan. Patient left in stable condition [facility] 01-03-2024 History of Present illness Narrative* Evans Anderson PA-C - 06/28/2023 10:45 AM EST [facility] [address] [place] [address] Patient: Stacey Sahu Sex: female : 1975 Age: 48 y.o. PCP: ESSIE RYAN APRN-NIRUKA 06/28/2023 Stacey Sahu is here for a(n) [...] min: NSAIDS, ice /heat, accupuncture, inj at [place] [facility] Mod relief: Narcotics Sign: Steroid inj by Ortho) for the symptoms. The treatment provided moderate relief. The effect of pain on patient's ADLS: Minimal Impairment. Past Medical History: Diagnosis Date Arthritis Bipolar disorder ([facility] [place]) Chronic pain disorder Crohn's colitis ([facility] [place]) Depression GERD (gastroesophageal reflux disease) H/O methicillin resistant Staphylococcus aureus infection Hyperlipidemia Joint pain Pleurisy Pulmonary hypertension ([facility] [place]) Pulmonary hypertension ([facility] [place]) Sleep apnea cpap Past Surgical History: Procedure Laterality Date COLON SURGERY part of bowel removed d/t crohns dx HYSTERECTOMY 2017 INJECTION SPINE TRANSFORAMINAL Right L 5,1 Nroot Right 05/26/2023 Performed by Pj Gannon MD at [facility] RELEASE DEQUERVAINS CONTRACTURE Right 10/17/2018 Performed by Dereck Bagley DO at [facility] THYROIDECTOMY, PARTIAL Allergies Allergen Reactions Penicillins [...] Anderson PA-C 06/28/23 1229 [id number] Hospital Discharge instructions Patient Education 05/29/2023 15:17:27 Kidney Stones, Hirr-xe-Omdl Kidney Stones Kidney stones are rock-like masses [...] Follow these instructions at home: Medicines Take fann-ydz-unnvkye and prescription medicines only as told by [...] provider. Document Revised: 02/14/2022 Document Reviewed: 02/14/2022 [employer] Patient Education 2022 Razz. Follow Up Care 11/08/2022 13:29:10 With:JOSE FELIX, Jose Palafox, URL Address: [facility] [address] [place] [phone] When: Unknown Comments:4 mos w/ metabolic w/u [facility] J[facility] 02-09-2023 NoteCONSULTATION CONSULTATION DATE: [...] medications in three months, unless otherwise indicated.[facility] [id number] NotePROCEDURE: XR HIP RT 2 3V WO [...] authenticated by: PREET RODRIGEZ Date: 2022-07-07 15:33[facility] [id number] NoteCONSULTATION CONSULTATION DATE: 07/07/2022 HISTORY OF PRESENT [...] procedure, and she agrees to move forward.[facility] [id number] NoteCONSULTATION CONSULTATION DATE: 06/09/2022 HISTORY OF PRESENT [...] will re-evaluate with application of the diclofenac.[facility] 04-26-2022 Hospital Discharge instructions Patient Education [...] 06/12/2006 Document Revised: 03/01/2019 Document Reviewed: 05/12/2017 [employer] Patient Education 2020 Razz. 04/26/2022 12:17:47 Hematuria, Adult Hematuria, Adult Hematuria [...] Follow these instructions at home: Medicines Take ctyq-abv-pnegxko and prescription medicines only as told by [...] or the blood stops without treatment. Take owwd-ojc-vzyrtiq and prescription medicines only as told by your health care provider. Drink enough fluid to keep your urine clear or pale yellow. This information is not intended to replace advice given to you by your health care provider. Make sure you discuss any questions you have with your health care provider. Document Released: 06/12/2006 Document Revised: 11/06/2019 Document Reviewed: 07/15/2017 [employer] Patient Education 2019 Razz. Follow Up Care 04/22/2022 08:39:58 With:JOSE FELIX, Jose Palafox, URL Address: [address] [place] [phone] When:Within 6 Month(s) Comments:6 mo fu with KUB [facility] 10-04-2022 NoteCONSULTATION PROCEDURE DATE: 03/29/2022 PREOPERATIVE DIAGNOSIS: [...] Will be followed up in the office.[facility] [id number] NoteCONSULTATION CONSULTATION DATE: 03/22/2022 CHIEF COMPLAINT: Right [...] up subsequent to that. CC: Essie Ryan [facility]09-13-2022 Hospital Discharge instructions Patient Education 03/08/2022 [...] [facility] [address] [place] [id number]- Business (1) When: Unknown Comments:Office will call to schedule follow up [facility]08-29-2022 History of Present illness Narrative* Shiraz Roy, DO - 02/21/2022 12:46 PM EDT Images from the original note were not included. [facility] - Medical Spine Initial [...] gel - no benefit Therapies PT at [facility] in [place] in June 2021 - 2 times per week for 1 month, exercises, TENS, ice - no relief Ice/heat Prior spine/[facility] interventions: -12/31/21 Dr. Page: R GTB CSI - minimal relief for 1 day. 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 Subjective Patient ID: Stacey [...] x 4 Crohn's disease without complication (HCC) [id number] Pulmonary Htn (Hcc) Obese Nirmala (Obstructive Sleep [...] (primary encounter diagnosis) Plan: CONSULT TO SPINE [facility] (M51.27) Lumbago-sciatica due to displacement [...] 2022 TIME: 3:46 PM [facility] History of Present illness Narrative* Jorge Luis Page, - 12/31/2021 12:54 PM EDT Associated Order(s): Large Joint Arthro/Inj: R greater trochanteric bursa Post-Procedure Diagnose(s): Trochanteric bursitis of right hip SERVICE DATE: December 31, 2021 PCP: Essie Ryan CNP, TELEVISION TECHNICIAN Patient was self-referred. Subjective Patient ID: Stacey [...] x 4 Crohn's disease without complication (HCC) [id number] Pulmonary Htn (Hcc) Obese Nirmala (Obstructive Sleep [...] trochanteric bursa Informed Consent Consent Obtained: Verbal [place] Protocol A moment to CARE was completed. [...] 2021 TIME: 1:05 PM [facility] Evaluation note* Encounter Date Diagnosis Assessment [...] to Dr. Christian with the [facility]. [facility] 05-25-2022 Evaluation note* Encounter Date Diagnosis [...] I will see her with those results. [facility] 06-21-2021 History of Past illness Narrative* Problem Noted Date Resolved Date Generalized abdominal pain 12/14/202012/16 documented as of this encounter (statuses as of 12/31/2021) [facility] of Past illness Narrative* Problem Noted Date Resolved Date Generalized abdominal pain 12/14/202012/16 documented as of this encounter (statuses as of 01/17/2022) [facility] of Past illness Narrative* Problem Noted Date Resolved Date Generalized abdominal pain 12/14/202012/16 documented as of this encounter (statuses as of 03/13/2022) [facility] No data available for this section [facility] Future Appointments Appointment Date:10/24/2022 11:30:00 AM Scheduled Provider:Jose GARCIA [facility] Evaluation + Plan note Future Appointments Appointment Date:05/29/2023 02:30:00 PM Scheduled Provider:Jose GARCIA MD [facility] App[facility] Type:URO Office Visit Future Scheduled Tests Laboratory* Calprotectin, Fecal 11/24/22 * CBC w/ Auto Diff 11/24/22 * Comprehensive Metabolic Panel 11/24/22 * C-Reactive Protein 11/24/22 Radiology* CT Abdomen/Pelvis w/contrast (enterography) 11/24/22 [facility] Evaluation + Plan note Future Appointments Appointment Date:05/29/2023 02:30:00 PM Scheduled Provider:Jose GARCIA MD Location:[facility] Appointment Type:URO Office Visit Future Scheduled Tests Laboratory* Calprotectin, Fecal 11/24/22 * CBC w/ Auto Diff 11/24/22 * Comprehensive Metabolic Panel 11/24/22 * C-Reactive Protein 11/24/22 [facility] Future Appointments Appointment Date:02/02/2023 01:00:00 PM Scheduled Provider:Ignacia KHAN MD Location:[facility] Appointment Type:[facility] Follow Up Appointment Date:05/29/2023 02:30:00 PM Scheduled Provider:Jose GARCIA MD Location[facility] Appointment Type:URO Office Visit Future Scheduled Tests Laboratory* Calprotectin, Fecal 11/24/22 [facility] Future Appointments Appointment Date:05/29/2023 02:30:00 PM Scheduled Provider:Jose GARCIA MD Location[facility] Appointment Type:URO Office Visit Diagnostic Tests Pending * Calprotectin, Fecal 02/02/23 [facility] Future Appointments Appointment Date:10/02/2023 03:00:00 PM Scheduled Provider:Jose GARCIA MD Location:[facility] Appointment Type:URO Office Visit [facility] evaluation note* Diagnosis Trochanteric bursitis of right hip- Primary Enthesopathy of hip region [facility] 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 [facility] Diagnosis Tendinopathy of right gluteal region- Primary Trochanteric bursitis of right hip Enthesopathy of hip region Chronic bilateral low back pain without sciatica Lumbar spondylosis Lumbosacral spondylosis without myelopathy [facility]* Diagnosis Lumbar radiculopathy- Primary Thoracic or lumbosacral neuritis or radiculitis, unspecified [facility] Diagnosis Chronic right hip pain- Primary [facility]* Diagnosis Exhausted vascular access Other [...] region and thigh [facility]* Diagnosis Exhausted vascular access Other specified [...] region and thigh [facility] this [facility]* Diagnosis Acute otitis media, unspecified otitis media type- Primary BMI 38.0-38.9,adult Other acute recurrent sinusitis Chronic rhinitis Other chronic sinusitis- Primary Encounter for screening mammogram for malignant neoplasm of breast BMI 38.0-38.9,adult COVID-19 Fluid level behind tympanic membrane of right ear Herpes zoster without complication- Primary Obesity (BMI 30-39.9) Achilles tendinosis of left ankle- Primary Pain of left heel Left foot pain- Primary Pain in soft tissues of limb Bipolar disorder, unspecified (CMS/HCC)- Primary Bipolar disorder, unspecified Morbid (severe) obesity due to excess calories (CMS/HCC) Gastro-esophageal reflux disease without esophagitis Body mass index (BMI) 38.0-38.9, adult Pulmonary hypertension, unspecified ([facility]) Crohn's disease of both small and large intestine without complications ([facility]) Chronic right hip pain Bipolar disorder, current episode mixed, moderate ([facility])- Primary Chronic rhinitis Gastroesophageal reflux disease, unspecified whether esophagitis present BMI 38.0-38.9,adult Neuritis of left median nerve Neuritis of right median nerve Bipolar disorder, unspecified ([facility]) Bipolar disorder, unspecified Bipolar disorder, unspecified ([facility])- Primary Bipolar disorder, unspecified Neuritis of right median nerve Neuritis of left median nerve Morbid (severe) obesity due to excess calories ([facility]) Body mass index (BMI) 38.0-38.9, adult Anxiety Anxiety state, unspecified PAH (pulmonary artery hypertension) ([facility]) Other chronic pulmonary heart diseases Chronic rhinitis Gastroesophageal reflux disease, unspecified whether esophagitis present Needs flu shot Need for prophylactic vaccination and inoculation against influenza [facility] Diagnosis Exhausted vascular access Other specified circulatory system disorders Crohn's disease of intestine (HCC) Regional enteritis of unspecified site Enterolith of small intestine (HCC) NIRMALA (obstructive sleep apnea) Obstructive sleep apnea (adult) (pediatric) GERD (gastroesophageal reflux disease) Esophageal reflux Bipolar disease, chronic ([facility]) Bipolar disorder, unspecified Generalized abdominal pain Abdominal pain, generalized Other hyperlipidemia Primary osteoarthritis of right hip- Primary Primary localized osteoarthrosis, pelvic region and thigh Status post right hip replacement Hip joint replacement by other means [facility]* Diagnosis NIRMALA (obstructive sleep apnea)- Primary Obstructive sleep apnea (adult) (pediatric) Obstructive sleep apnea- Primary Obstructive sleep apnea (adult) (pediatric) Obstructive sleep apnea Obstructive sleep apnea (adult) (pediatric) documented in this encounter [facility]* Diagnosis NIRMALA (obstructive sleep apnea)- Primary Obstructive sleep apnea (adult) (pediatric) Obstructive sleep apnea Obstructive sleep apnea (adult) (pediatric) Obstructive sleep apnea- Primary Obstructive sleep apnea (adult) (pediatric) Obstructive sleep apnea Obstructive sleep apnea (adult) (pediatric) NIRMALA (obstructive sleep apnea) Obstructive sleep apnea (adult) (pediatric) documented in this encounter [facility]* Diagnosis Exhausted vascular access Other specified circulatory system disorders Crohn's disease of intestine (HCC) Regional enteritis of unspecified site Enterolith of small intestine (HCC) NIRMALA (obstructive sleep apnea) Obstructive sleep apnea (adult) (pediatric) GERD (gastroesophageal reflux disease) Esophageal reflux Bipolar disease, chronic (HCC) Bipolar disorder, unspecified Generalized abdominal pain Abdominal pain, generalized Other hyperlipidemia Primary osteoarthritis of right hip- Primary Primary localized osteoarthrosis, pelvic region and thigh Primary osteoarthritis of right hip Primary localized osteoarthrosis, pelvic region and thigh [facility]* Diagnosis Acute otitis media, unspecified otitis media type- Primary BMI 38.0-38.9,adult Other acute recurrent sinusitis Chronic rhinitis Other chronic sinusitis- Primary Encounter for screening mammogram for malignant neoplasm of breast BMI 38.0-38.9,adult COVID-19 Fluid level behind tympanic membrane of right ear Herpes zoster without complication- Primary Obesity (BMI 30-39.9) Achilles tendinosis of left ankle- Primary Pain of left heel Left foot pain- Primary Pain in soft tissues of limb Bipolar disorder, unspecified (CMS/HCC)- Primary Bipolar disorder, unspecified Morbid (severe) obesity due to excess calories (CMS/HCC) Gastro-esophageal reflux disease without esophagitis Body mass index (BMI) 38.0-38.9, adult Pulmonary hypertension, unspecified (CMS/HCC) Crohn's disease of both small and large intestine without complications (CMS/HCC) Chronic right hip pain Bipolar disorder, current episode mixed, moderate (CMS/HCC)- Primary Chronic rhinitis Gastroesophageal reflux disease, unspecified whether esophagitis present BMI 38.0-38.9,adult Neuritis of left median nerve Neuritis of right median nerve Bipolar disorder, unspecified (CMS/HCC) Bipolar disorder, unspecified Bipolar disorder, unspecified (CMS/HCC)- Primary Bipolar disorder, unspecified Neuritis of right median nerve Neuritis of left median nerve Morbid (severe) obesity due to excess calories (CMS/HCC) Body mass index (BMI) 38.0-38.9, adult Anxiety Anxiety state, unspecified PAH (pulmonary artery hypertension) (CMS/HCC) Other chronic pulmonary heart diseases Chronic rhinitis Gastroesophageal reflux disease, unspecified whether esophagitis present Needs flu shot Need for prophylactic vaccination and inoculation against influenza Bipolar 1 disorder (CMS/HCC)- Primary NIRMALA (obstructive sleep apnea) Obstructive sleep apnea (adult) (pediatric) PAH (pulmonary artery hypertension) ([facility]) Other chronic pulmonary heart diseases Chronic right hip pain Morbid (severe) obesity due to excess calories (CMS/[facility]) Anxiety Anxiety state, unspecified Chronic rhinitis Body mass index (BMI) 38.0-38.9, adult [facility] Diagnosis Exhausted vascular access Other specified circulatory system disorders Crohn's disease of intestine (HCC) Regional enteritis of unspecified site Enterolith of small intestine (HCC) NIRMALA (obstructive sleep apnea) Obstructive sleep apnea (adult) (pediatric) GERD (gastroesophageal reflux disease) Esophageal reflux Bipolar disease, chronic (HCC) Bipolar disorder, unspecified Generalized abdominal pain Abdominal pain, generalized Other hyperlipidemia Pre-op evaluation- Primary Preoperative examination, unspecified NIRMALA (obstructive sleep apnea) Obstructive sleep apnea (adult) (pediatric) Gastroesophageal reflux disease, unspecified whether esophagitis present Pulmonary HTN (HCC) Other chronic pulmonary heart diseases Other hyperlipidemia BMI 37.0-37.9, adult Body Mass Index 37.0-37.9, adult Primary osteoarthritis of right hip Primary localized osteoarthrosis, pelvic region and thigh * Assessment & Plan Note - Negrita Tejeda APRN.CNP - 06/05/2024 10:30 AM ESTAssociated Problem(s): BMI 37.0-37.9, adult Assessment: diet and exercise encouraged * Assessment & Plan Note - Negrita Tejeda APRN.CNP - 06/05/2024 10:30 AM ESTAssociated Problem(s): Other hyperlipidemia Assessment: diet controlled, stable Follows up with PCP * Assessment & Plan Note - Negrita Tejeda APRN.CNP - 06/05/2024 10:19 AM ESTAssociated Problem(s): Pulmonary HTN (HCC) Assessment: EF 65% per ECHO 11/22/22 Follows up with cardiology, last office visit 03/06/24 Asymptomatic * Assessment & Plan Note - Negrita Tejeda APRN.CNP - 06/05/2024 10:07 AM ESTAssociated Problem(s): GERD (gastroesophageal reflux disease) Assessment: managed with med, stable Follows up with PCP * Assessment & Plan Note - Negrita Tejeda APRN.CNP - 06/05/2024 10:07 AM ESTAssociated Problem(s): NIRMALA (obstructive sleep apnea) Assessment: non-compliant with CPAP [facility] Narrative - Reported* Type Description Date Medical History acid reflux Surgical History biopsy of intestines Surgical History hysterectomy [facility] Discharge instructions No data available for this section [facility] InstructionsNot on filedocumented in this encounter [facility] filedocumented in this [facility]Not on filedocumented in this encounter [facility]ructionsNot on filedocumented in this encounter [facility]ructionsNot on filedocumented in this encounter [facility] No data available for this section [facility] (narrative)* Consultation (Routine) - Pending Review Specialty Diagnoses / Procedures Referred By Wan gamboa Referred To Contact Orthopedic Surgery Diagnoses Chronic right hip pain Imani Chan APRN-TELEVISION TECHNICIAN [address] [place] [address] Bang Cuellar MD [address] [place] [address] Referral ID Status Reason Start Date Expiration Date Visits Requested Visits Authorized [id number] Pending Review Specialty Services Required 09/12/2023 09/11/2024 1 1 [facility] for referral (narrative)* Diagnostic Procedure Only (Routine) - Closed Specialty Diagnoses / Procedures Referred By Contac t Referred To Contact XR IMAGING Diagnoses Pain in right hip Procedures XR HIP GENERAL 3V PELV/AP/LAT RIGHT RADEX HIP UNILATERAL WITH PELVIS 2-3 VIEWS Mayito Gifford PA-C [address] [place] [address] [place] [id number] Referral ID Status Reason Start Date Expiration Date V isits Requested Visits Authorized [id number] Closed Auto-Generate d Referral 03/15/2024 04/14/2025 1 1 [facility] for referral (narrative)* - Pending Review Specialty Diagnoses / Procedures Referred By Contac t Referred To Contact Physical Therapy Diagnoses Status post right hip replacement Procedures CONSULT TO PHYSICAL THERAPY Lois Mckeon MD [address] [address] Referral ID Status Reason Start Date Expiration Date V isits Requested Visits Authorized [id number] Pending Review 04/16/2024 07/15/2024 1 1 [facility] for referral (narrative)* Outpatient Procedure (Routine) - New Request Specialty Diagnoses / Procedures Referred By Contac t Referred To Contact [facility] Diagnoses Pre-op evaluation Procedures ECG COMPLETE ECG ROUTINE ECG W/LEAST 12 LDS W/I&R Negrita Tejeda APRN.TELEVISION TECHNICIAN [address] [place] [address] [facility] [address] [place] [address] Referral ID Status Reason Start Date Expiration Date Visits Requested Visits Authorized [id number] New Request Auto-Generat ed Referral 06/05/2025 1 1 [facility] Summary Purpose Family History No [...] FoundDocuments on File Type Date Recorded 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 Advance Directive(s) 12/12/2020 8:14 PM Documents on File Type Date Recorded 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 Advance Directive(s) 12/12/2020 8:14 PM Reason for Referral Specialty Diagnoses / Procedures Referred By Wan gamboa Referred To Contact MR IMAGING Diagnoses Pain of right hip Procedures MRI HIP WO IVCON RIGHT MRI ANY JT LOWER EXTREM W/O CONTRAST MATRLois Juan MD [address] [place] [address] Mr Imaging [place] [id number] Referral ID Status Reason Start Date Expiration Date Visits Requested Visits Authorized [id number] New Request Auto-Generat ed Referral 03/19/2024 04/18/2025 1 1 Specialty Diagnoses / Procedures Referred By Wan gamboa Referred To Contact Diagnoses Trochanteric bursitis of right hip Tendinopathy of right gluteal region Chronic bilateral low back pain without sciatica Lumbar spondylosis Procedures CONSULT TO CHIROPRACTOR OFFICE/OUTPATIENT [facility] 60-74 MINUTES Shiraz Roy DO [address] [place] [address] Referral ID Status Reason Start Date Expiration Date Visits Requested Visits Authorized [id number] Pending Review PCP Requested Referral 02/21/2022 02/21/2023 1 1 Specialty Diagnoses / Procedures Referred By Wan agmboa Referred To Contact Sports Medicine Diagnoses Trochanteric bursitis of right hip Tendinopathy of right gluteal region Procedures CONSULT TO SPORTS MEDICINE OFFICE/OUTPATIENT [facility] 60-74 MINUTES Shiraz Roy DO [address] [place] [address] Referral ID Status Reason Start Date Expiration Date Visits Requested Visits Authorized [id number] Authorized PCP Requested Referral 02/21/2022 02/21/2023 1 1 Specialty Diagnoses / Procedures Referred By Wan gamboa Referred To Contact [facility] Diagnoses Trochanteric bursitis of right hip Lumbago-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 Procedures CONSULT TO [facility] OFFICE/OUTPATIENT [facility] 60-74 MINUTES Jorge Luis Page, DO [facility] [address] [place] [address] Referral ID Status Reason Start Date Expiration Date Visits Requested Visits Authorized [id number] Authorized PCP Requested Referral 01/17/2022 01/17/2023 1 1 Reason evaluate and treat. Gluteal tendon tear vs greater trochanteric bursitis Please refer to Bang Christian MD, Orthopaedic [facility], [facility] Diagnosis 1 Trochanteric bursiti s, right hip (M70.61) Referral Organization [facility] Referring Provider First Name Alexis Referring Provider Last Name Dany ARDON Referring Provider Specialty Orthopedic Surgery Referred Organization [facility] Referred Address [address] [facility],[place], [place],[address] Referred Provider Specialty ORTHOPEDIC S URGEON Referral [...] section and content) DATE CREATED AUTHOR 12/19/2017 [facility] DATE CREATED AUTHOR AUTHOR'S ORGANIZ ATION 12/08/2021 [facility] DATE CREATED AUTHOR AUTHOR'S ORGANIZ ATION 12/04/2022 [facility] [place] [facility] DATE CREATED AUTHOR AUTHOR'S ORGANIZ ATION 09/12/2023 [facility] DATE CREATED AUTHOR AUTHOR'S ORGANIZ ATION 11/29/2023 [facility] DATE CREATED AUTHOR AUTHOR'S ORGANIZ ATION 03/10/2024 [facility] DATE CREATED AUTHOR AUTHOR'S ORGANIZ ATION 04/12/2024 [facility] DATE CREATED AUTHOR AUTHOR'S ORGANIZ ATION 05/11/2024 [facility] DATE CREATED AUTHOR AUTHOR'S ORGANIZ ATION 05/20/2024 [facility] DATE CREATED AUTHOR AUTHOR'S ORGANIZ ATION 06/08/2024 [facility] REASON FOR VISIT (unrecogniz ed section and content) Reason Comments New Specialty Diagnoses / Procedures Referred By Contac t Referred To Contact Orthopedics / ORTHOPAEDIC SURGERY Diagnoses Greater Trochanteric Bursitis right hip vs Gluteal Tendon tear *OUTSIDE IMG PT TO BRING Procedures LANA NEW NO XRAY Alexis Saenz II, MD [address] [place] [address] Jorge Luis Page DO [employer] [address] [place] [address] Referral ID Status Reason Start Date Expiration Date Visits Requested Visits Authorized [id number] Authorized Financial Clearance Not Required 12/24/2021 01/23/2022 99 99 Reason Comments Follow Up Reason Comments New Patient Evaluation Lower back pain/R ight side sciatica Specialty Diagnoses / Procedures Referred By Contac t Referred To Contact [facility] Diagnoses Trochanteric bursitis of right hip Lumbago-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 Procedures CONSULT TO [facility] OFFICE/OUTPATIENT NEW HIGH MDM 60-74 MINUTES Jorge Luis Page DO [employer] [address] [place] [address] Referral ID Status Reason Start Date Expiration Date V isits Requested Visits Authorized [id number] Closed PCP Requested Referral 01/17/2022 01/17/2023 1 [...] VIEWS Mayito Gifford PA-C [address] [place] [address] [place] [id number] Referral ID Status Reason Start Date Expiration Date V isits Requested Visits Authorized [id number] Closed Auto-Generate d Referral 03/15/2024 04/14/2025 1 1 Reason Comments Established Patient Surgical consult Results - Mri Surgical consult Reason Comments inspire consult Specialty Diagnoses / Procedures Referred By Contac t Referred To Contact Otolaryngology Diagnoses NIRMALA (obstructive sleep apnea) Procedures [place] OFFICE OUTPATIENT VISIT 60-74 MINS HIGH MDM AMB REFERRAL TO ENT Trinh Eduardo MD [address] [place] [address] Phone: tel: fax: Jeff Rossi MD [address] [facility] [address] [place] [address] Phone: tel: fax: Referral ID Status Reason Start Date Expiration Date V isits Requested Visits Authorized [id number] Pending Review 03/08/2024 03/08/2025 1 1 Reason Comments Post-op Reason Comments Schedule Surgery Reason Comments Bipolar Reason Comments Question See note Source Comments (unrecognize d section and content) In the event this informatio n is protected by the Federal Confidentiality of Alcohol and Drug Abuse Patient Records regulations: The Federal rules restrict any use of the information to criminally investigate or prosecute any alcohol or drug abuse patient.[facility] the event this information is protected by the Federal Confidentiality of Alcohol and Drug Abuse Patient Records regulations: The Federal rules restrict any use of the information to criminally investigate or prosecute any alcohol or drug abuse patient.[facility] HospitalIn the event this information is protected by the Federal Confidentiality of Alcohol and Drug Abuse Patient Records regulations: The Federal rules restrict any use of the information to criminally investigate or prosecute any alcohol or drug abuse patient.[facility] HospitalIn the event this information is protected by the Federal Confidentiality of Alcohol and Drug Abuse Patient Records regulations: The Federal rules restrict any use of the information to criminally investigate or prosecute any alcohol or drug abuse patient.[facility] HospitalIn the event this information is protected by the Federal Confidentiality of Alcohol and Drug Abuse Patient Records regulations: The Federal rules restrict any use of the information to criminally investigate or prosecute any alcohol or drug abuse patient.[facility] HospitalIn the event this information is protected by the Federal Confidentiality of Alcohol and Drug Abuse Patient Records regulations: The Federal rules restrict any use of the information to criminally investigate or prosecute any alcohol or drug abuse patient.[facility] HospitalIn the event this information is protected by the Federal Confidentiality of Alcohol and Drug Abuse Patient Records regulations: The Federal rules restrict any use of the information to criminally investigate or prosecute any alcohol or drug abuse patient.[facility] HospitalIn the event this information is protected by the Federal Confidentiality of Alcohol and Drug Abuse Patient Records regulations: The Federal rules restrict any use of the information to criminally investigate or prosecute any alcohol or drug abuse patient.[facility] HospitalIn the event this information is protected by the Federal Confidentiality of Alcohol and Drug Abuse Patient Records regulations: The Federal rules restrict any use of the information to criminally investigate or prosecute any alcohol or drug abuse patient.[facility] HospitalIn the event this information is protected by the Federal Confidentiality of Alcohol and Drug Abuse Patient Records regulations: The Federal rules restrict any use of the information to criminally investigate or prosecute any alcohol or drug abuse patient.[facility] Care Teams (unrecognized sec tion and content) Mortgage Loan Reviewer Relationship Specialty Start Date End Date Essie Ryan CNP PCP - General Family Practice 07/22/16 Adán Torres Obstetrics 07/22/16 Alexis Saenz II, MD [address] [place] [address] Referring Orthopedics 12/13/21 Mortgage Loan Reviewer Relationship Specialty Start Date End Date Essie Ryan CNP PCP - General Family Practice 07/22/16 Adán Torres DO Obstetrics 07/22/16 Alexis Saenz II, MD [address] [place] [address] Referring Orthopedics 12/13/21 Mortgage Loan Reviewer Relationship Specialty Start Date End Date Essie Ryan CNP PCP - General Family Practice 07/22/16 Adán Torres DO Obstetrics 07/22/16 Alexis Saezn II, MD [address] [place] [phone] Referring Orthopedics 12/13/21 Mortgage Loan Reviewer Relationship Specialty Start Date End Date Essie Ryan, [facility] [address] [place] [address] PCP - General Nurse Practitioner 10/03/18 Mortgage Loan Reviewer Relationship Specialty Start Date End Date Essie [facility] [address] [place] [address] PCP - General Nurse Practitioner 10/03/18 Mortgage Loan Reviewer Relationship Specialty Start Date End Date Essie [facility] [address] [place] [address] PCP - General Nurse Practitioner 10/03/18 Mortgage Loan Reviewer Relationship Specialty Start Date End Date Essie Ryan, [facility] PCP - General Family Medicine 07/22/16 Adán Torres DO Obstetrics 07/22/16 Alexis Saenz II, MD [address] [place] [address] Referring Orthopedics 12/13/21 Angel Delgado DO [address] [place] [id number] Referring Orthopedics 03/08/24 Mortgage Loan Reviewer Relationship Specialty Start Date End Date Essie Ryan CNP PCP - General Family Medicine 07/22/16 Adán Torres DO Obstetrics 07/22/16 Alexis Saenz II, MD [address] [place] [address] Referring Orthopedics 12/13/21 Angel Delgado DO [address] [place] [address] Referring Orthopedics 03/08/24 Mortgage Loan Reviewer Relationship Specialty Start Date End Date Essie Ryan CNP PCP - General Family Medicine 07/22/16 Adán Torres DO Obstetrics 07/22/16 Alexis Saenz II, MD [address] [place] [address] Referring Orthopedics 12/13/21 Angel Delgado DO [address] [place] [address] Referring Orthopedics 03/08/24 Mortgage Loan Reviewer Relationship Specialty Start Date End Date Yuriy Martins MD [facility] [place] [address] [address] PCP - General Family Medicine 08/17/23 Essie Ryan NP [address] [place] [phone] PCP - [facility] 12/25/23 Essie Ryan NP [address] [place] [phone] Nurse Practitioner Family Medicine 08/17/23 Mortgage Loan Reviewer Relationship Specialty Start Date End Date Yuriy Martins MD [address] [place] [phone] PCP - General Family Medicine 08/17/23 Essie Ryan NP [address] [place] [phone] PCP - [facility] 12/25/23 Essie Ryan NP [address] [place] [phone] Nurse Practitioner Family Medicine 08/17/23 Mortgage Loan Reviewer Relationship Specialty Start Date End Date Essie Ryan CNP PCP - General Family Medicine 07/22/16 Adán Torres DO Obstetrics 07/22/16 Alexis Saenz II, MD [address] [place] [address] Referring Orthopedics 12/13/21 Angel eDlgado DO [address] [address] Referring Orthopedics 03/08/24 Mortgage Loan Reviewer Relationship Specialty Start Date End Date [facility] PCP - General Nurse Practitioner 10/03/18 Mortgage Loan Reviewer Relationship Specialty Start Date End Date [facility]ie [facility] PCP - General Nurse Practitioner 10/03/18 Mortgage Loan Reviewer Relationship Specialty Start Date End Date [facility]ie [facility] PCP - General Nurse Practitioner 10/03/18 Mortgage Loan Reviewer Relationship Specialty Start Date End Date Esise [facility] PCP - General Nurse Practitioner 10/03/18 Mortgage Loan Reviewer Relationship Specialty Start Date End Date Essie [facility] PCP - General Nurse Practitioner 10/03/18 Mortgage Loan Reviewer Relationship Specialty Start Date End Date Essie Ryan [facility] PCP - General Family Medicine 07/22/16 Adán Torres DO Obstetrics 07/22/16 Alexis Saenz II, MD [address] [place] [address] Referring Orthopedics 12/13/21 Angel Delgado DO [address] [address] Referring Orthopedics 03/08/24 Mortgage Loan Reviewer Relationship Specialty Start Date End Date Essie Ryan NP [address] [place] [phone] PCP - [facility] 12/25/23 Yuriy Martins MD [address] [place] [phone] PCP - General Family Medicine 05/29/24 Essie Ryan NP [address] [place] [phone] Nurse Practitioner Family Medicine 08/17/23 Mortgage Loan Reviewer Relationship Specialty Start Date End Date Essie Ryan NP [address] [place] [phone] PCP - [facility] 12/25/23 Yuriy Martins MD [address] [place] [phone] PCP - General Family Medicine 05/29/24 Essie Ryan NP [address] [place] [phone] Nurse Practitioner Family Medicine 08/17/23 Mortgage Loan Reviewer Relationship Specialty Start Date End Date Essie Ryan TELEVISION TECHNICIAN PCP - General Family Medicine 07/22/16 Adán Torres DO Obstetrics 07/22/16 Alexis Saenz II, MD [address] [place] [address] Referring Orthopedics 12/13/21 Angel Delgado DO [address] [place] [address] Referring Orthopedics 03/08/24 Mortgage Loan Reviewer Relationship Specialty Start Date End Date sEsie Ryan Fely TELEVISION TECHNICIAN PCP - General Family Medicine 07/22/16 Adán Torres DO Obstetrics 07/22/16 Alexis Saenz II, MD [address] [place] [address] Referring Orthopedics 12/13/21 Angel Delgado DO [address] [place] [address] Referring Orthopedics 03/08/24 FOR RECORDS PERTAINING TO [...] BE BASED ON THE PRIMARY CLINICAL RECORDS. [facility]. provides no warranty or guarantee of the accuracy or completeness of information in this document.
[2024-06-08 16:57] VITALS: BP 149/111; PULSE 108; TEMP 36.8; O2SAT 98; BMI 38.3
--- NOTE | 2024-06-08 17:05 | ED_ITS ---
Documented by User: Tee Ram MD 06/08/24 17:06 HPI - Abdominal Pain General Chief Complaint: Abdominal Pain Stated Complaint: SEVERE L SIDE PAIN Time Seen by Provider: 06/08/24 17:04 Source: patient and family Mode of arrival: Wheelchair Limitations: no limitations History of Present Illness HPI narrative: Patient here complaining of left flank and abdominal pain. She had severe discomfort earlier today but it went away. Now it is come back. She does have a history of kidney stones. She has not seen any blood in her urine. She has not had any fever shakes or chills. She is not on any antibiotics. There is no history of trauma or injury or change in activity. She says it really does not feel like a muscular problem in her back. She has not had lithotripsy or any surgical procedure for previous stones. She has not taken any medications today for Related Data Home Medications ?Medication ?Instructions ?Recorded ?Confirmed omeprazole 40 mg capsule,delayed 40 mg PO QPM 12/20/22 06/08/24 release aripiprazole 15 mg tablet mg 06/08/24 meloxicam 15 mg tablet mg 06/08/24 Previous Rx's ?Medication ?Instructions ?Recorded sulfamethoxazole 800 1 tab PO BID 7 days #14 tabs 06/08/24 mg-trimethoprim 160 mg tablet (Bactrim DS) tamsulosin 0.4 mg capsule (Flomax) 0.4 mg PO DAILY #10 caps 06/08/24 tramadol 50 mg tablet 50 mg PO Q8H PRN pain 3 days #9 06/08/24 tabs Allergies Allergy/AdvReac Type Severity Reaction Status Date / Time penicillin G Allergy Severe Fever Verified 06/08/24 17:02 [facility] Medical History (Updated 06/08/24 @ 20:09 by Araceli Louis MD) Arthritis ?M19.90 - Unspecified osteoarthritis, unspecified site (ICD-10) Anxiety ?F41.9 - Anxiety disorder, unspecified (ICD-10) COVID-19 (03/2022) ?U07.1 - COVID-19 (ICD-10) Sleep apnea ?G47.30 - Sleep apnea, unspecified (ICD-10) Hematuria ?R31.9 - Hematuria, unspecified (ICD-10) Thyroid nodule ?E04.1 - Nontoxic single thyroid nodule (ICD-10) Crohn's disease ?K50.90 - Crohn's disease, unspecified, without complications (ICD-10) Palpitations ?R00.2 - Palpitations (ICD-10) High cholesterol ?E78.00 - Pure hypercholesterolemia, unspecified (ICD-10) Surgical History (Updated 12/20/22 @ 09:02 by Vira Webber) History of colectomy (03/2001) ?Z90.49 - Acquired absence of other specified parts of digestive tract (ICD- 10) History of hysterectomy ?Z90.710 - Acquired absence of both cervix and uterus (ICD-10) S/P fine needle aspiration (08/2022) ?Z98.890 - Other specified postprocedural states (ICD-10) S/P cystoscopy ?Z98.890 - Other specified postprocedural states (ICD-10) Family History (Updated 12/20/22 @ 08:52 by Vira Webber) Other Esophageal adenocarcinoma Family history of COPD (chronic obstructive pulmonary disease) Family history of breast cancer Family history of colon cancer Family history of coronary artery disease Family history of diabetes mellitus Family history of heart disease Family history of hypertension Family history of lung cancer Family history of stroke Social History (Updated 12/20/22 @ 08:49 by Vira Webber) Within the past year, how often did you have a drink containing alcohol: never Score interpretation: A score less than 3 is consistent with normal alcohol consumption. 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 She appears to be continuously uncomfortable the pain is in her left costovertebral angle and it radiates to her left groin. Examination the back area shows no tenderness over the bony architecture of the spine or over the musculoskeletal system. There is no respiratory distress or pain in her chest area. Examination of her abdomen she has no guarding rebound rigidity or peritoneal findings. The lower ribs are nontender. Circulation of her lower extremity is normal. Constitutional Vital Signs, click to edit/add: Last Vital Signs Temp 98.2 F 06/08/24 16:57 Pulse 84 06/08/24 20:50 Resp 16 06/08/24 20:50 BP 142/84 H 06/08/24 20:50 Pulse Ox 97 06/08/24 20:50 O2 Del Method Room Air 06/08/24 20:50 Course Vital Signs Vital signs: Vital Signs Temperature 98.2 F 06/08/24 16:57 Pulse Rate 108 H 06/08/24 16:57 Respiratory Rate 20 06/08/24 16:57 Blood Pressure 149/111 H 06/08/24 16:57 Pulse Oximetry 98 06/08/24 16:57 Oxygen Delivery Method Room Air 06/08/24 16:57 Temperature 98.2 F 06/08/24 16:57 Pulse Rate 84 06/08/24 20:50 Respiratory Rate 16 06/08/24 20:50 Blood Pressure 142/84 H 06/08/24 20:50 Pulse Oximetry 97 06/08/24 20:50 Oxygen Delivery Method Room Air 06/08/24 20:50 MDM - Abdominal Pain Lab Data Labs: Lab Results 06/08/24 06/08/24 Range/Units 17:10 17:36 WBC 9.4 (4.0-11.0) 10^3/uL RBC 4.41 (4.20-5.40) 10^6/uL Hgb 12.9 (12.0-16.0) g/dL Hct 39.5 (36.0-48.0) % MCV 89.6 (81.0-99.0) fL MCH 29.3 (26.7-34.0) pg MCHC 32.7 (29.9-35.2) g/dL RDW 12.3 (11.0-15.0) % Plt Count 278 (150-450) 10^3/uL MPV 10.3 (9.5-13.5) fL Neut % (Auto) 53.5 (43.0-75.0) % Lymph % (Auto) 31.1 (20.5-60.0) % Stark % (Auto) 9.0 (1.7-12.0) % Eos % (Auto) 5.2 (0.9-7.0) % Baso % (Auto) 1.0 (0.2-2.0) % Neut # (Auto) 5.0 (1.4-6.5) 10^3/uL Lymph # (Auto) 2.9 (1.2-3.8) 10^3/uL Stark # (Auto) 0.8 (0.3-0.8) 10^3/uL Eos # (Auto) 0.5 (0.0-0.7) 10^3/uL Baso # (Auto) 0.1 (0.0-0.1) 10^3/uL Abs Immat Gran (auto) 0.02 (0.00-0.03) 10^3/uL Imm/Tot Granulo (auto) 0.2 (0.0-0.5) % Urine Color Yellow (YELLOW) Urine Clarity Clear (CLEAR) Urine pH 5.5 (5.0-9.0) Ur Specific [place] >=1.030 A (1.005-1.025) Urine Protein Trace (NEG/TRACE) mg/dL Urine Glucose (UA) Negative (NEGATIVE) mg/dL Urine Ketones Negative (NEGATIVE) mg/dL Urine Occult Blood Large A (NEGATIVE) Urine Nitrite Negative (NEGATIVE) Urine Bilirubin Negative (NEGATIVE) Urine Urobilinogen 1.0 (0.2-1.0) EU/dL Ur Leukocyte Esterase Negative (NEGATIVE) Urine RBC 75-100 A (0-2) #/HPF Urine WBC 0-2 A (NONE SEEN) #/HPF Ur Squamous Epith Cells Many A (NONE/RARE) #/LPF Urine Crystals None seen (None Seen) #/HPF Urine Bacteria Moderate A (NONE SEEN) #/HPF Urine Casts None seen (NONE SEEN) #/LPF Urine Mucus Moderate A (NONE SEEN) Ur Culture Indicated? Yes Discharge Plan Discharge Chief Complaint: Abdominal Pain Clinical Impression: Calculus of kidney, UTI (urinary tract infection) Patient Disposition: Home, Self-Care Time of Disposition Decision: 20:09 Condition: Good Prescriptions / Home Meds: New tramadol 50 mg tablet 50 mg PO Q8H PRN (Reason: pain) 3 Days Qty: 9 0RF tamsulosin [Flomax] 0.4 mg capsule 0.4 mg PO DAILY Qty: 10 0RF sulfamethoxazole-trimethoprim [Bactrim DS] 800-160 mg tablet 1 tab PO BID 7 Days Qty: 14 0RF No Action omeprazole 40 mg capsule,delayed release(DR/EC) 40 mg PO QPM meloxicam 15 mg tablet aripiprazole 15 mg tablet Print Language: Hong Konger Instructions: Kidney Stones (ED), Urinary Tract Infection in Women (DC) Referrals: Mark Urbina MD [Physician] - 1 week Essie Ryan NP [Primary Care Provider] - 1 week Discharge Date/Time: 06/08/24 20:45 Documented by User: Araceli Louis MD 06/09/24 01:25 HPI - Abdominal Pain General Chief Complaint: Abdominal Pain Stated Complaint: SEVERE L SIDE PAIN Time Seen by Provider: 06/08/24 17:04 Related Data Home Medications ?Medication ?Instructions ?Recorded ?Confirmed omeprazole 40 mg capsule,delayed 40 mg PO QPM 12/20/22 06/08/24 release aripiprazole 15 mg tablet mg 06/08/24 meloxicam 15 mg tablet mg 06/08/24 Previous Rx's ?Medication ?Instructions ?Recorded sulfamethoxazole 800 1 tab PO BID 7 days #14 tabs 06/08/24 mg-trimethoprim 160 mg tablet (Bactrim DS) tamsulosin 0.4 mg capsule (Flomax) 0.4 mg PO DAILY #10 caps 06/08/24 tramadol 50 mg tablet 50 mg PO Q8H PRN pain 3 days #9 06/08/24 tabs Allergies Allergy/AdvReac Type Severity Reaction Status Date / Time penicillin G Allergy Severe Fever Verified 06/08/24 17:02 PFSH PFSH Medical History (Updated 06/08/24 @ 20:09 by Araceli Louis MD) Arthritis ?M19.90 - Unspecified osteoarthritis, unspecified site (ICD-10) Anxiety ?F41.9 - Anxiety disorder, unspecified (ICD-10) COVID-19 (03/2022) ?U07.1 - COVID-19 (ICD-10) Sleep apnea ?G47.30 - Sleep apnea, unspecified (ICD-10) Hematuria ?R31.9 - Hematuria, unspecified (ICD-10) Thyroid nodule ?E04.1 - Nontoxic single thyroid nodule (ICD-10) Crohn's disease ?K50.90 - Crohn's disease, unspecified, without complications (ICD-10) Palpitations ?R00.2 - Palpitations (ICD-10) High cholesterol ?E78.00 - Pure hypercholesterolemia, unspecified (ICD-10) Surgical History (Updated 12/20/22 @ 09:02 by Vira Webber) History of colectomy (03/2001) ?Z90.49 - Acquired absence of other specified parts of digestive tract (ICD- 10) History of hysterectomy ?Z90.710 - Acquired absence of both cervix and uterus (ICD-10) S/P fine needle aspiration (08/2022) ?Z98.890 - Other specified postprocedural states (ICD-10) S/P cystoscopy ?Z98.890 - Other specified postprocedural states (ICD-10) Family History (Updated 12/20/22 @ 08:52 by Vira Webber) Other Esophageal adenocarcinoma Family history of COPD (chronic obstructive pulmonary disease) Family history of breast cancer Family history of colon cancer Family history of coronary artery disease Family history of diabetes mellitus Family history of heart disease Family history of hypertension Family history of lung cancer Family history of stroke Social History (Updated 12/20/22 @ 08:49 by Vira Webber) Within the past year, how often did you have a drink containing alcohol: never Score interpretation: A score less than 3 is consistent with normal alcohol consumption. 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 [employer] Highest level of school completed/degree received: high school graduate Little interest or pleasure in doing things: not at all Feeling down, depressed, or hopeless: not at all Exam Constitutional Vital Signs, click to edit/add: Last Vital Signs Temp 98.2 F 06/08/24 16:57 Pulse 84 06/08/24 20:50 Resp 16 06/08/24 20:50 BP 142/84 H 06/08/24 20:50 Pulse Ox 97 06/08/24 20:50 O2 Del Method Room Air 06/08/24 20:50 Course Vital Signs Vital signs: Vital Signs Temperature 98.2 F 06/08/24 16:57 Pulse Rate 108 H 06/08/24 16:57 Respiratory Rate 20 06/08/24 16:57 Blood Pressure 149/111 H 06/08/24 16:57 Pulse Oximetry 98 06/08/24 16:57 Oxygen Delivery Method Room Air 06/08/24 16:57 Temperature 98.2 F 06/08/24 16:57 Pulse Rate 84 06/08/24 20:50 Respiratory Rate 16 06/08/24 20:50 Blood Pressure 142/84 H 06/08/24 20:50 Pulse Oximetry 97 06/08/24 20:50 Oxygen Delivery Method Room Air 06/08/24 20:50 MDM - Abdominal Pain MDM Narrative Medical decision making narrative: Patient care was transferred to ms at the beginning of the shift at 7 PM Patient CAT scan shows 2.5 mm kidney stone with no significant hydronephrosis and no other finding on the CAT scan of the abdomen pelvis The patient CBC showed no acute significant pathology but the urine showing some bacteriuria With the patient presentation the kidney stone she will be treated for possible UTI Patient was discharged home with Bactrim in addition to Flomax and tramadol for pain in addition to straining her urine at home Referred to urology as outpatient The patient is to follow up with primary care physician in next 2-3 days or to return to the emergency department should any of the signs or symptoms worsen or new symptoms develop. The patient agrees with the following Diagnosis and Treatment plan and the patient will be discharged home. Lab Data Labs: Lab Results 06/08/24 06/08/24 Range/Units 17:10 17:36 WBC 9.4 (4.0-11.0) 10^3/uL RBC 4.41 (4.20-5.40) 10^6/uL Hgb 12.9 (12.0-16.0) g/dL Hct 39.5 (36.0-48.0) % MCV 89.6 (81.0-99.0) fL MCH 29.3 (26.7-34.0) pg MCHC 32.7 (29.9-35.2) g/dL RDW 12.3 (11.0-15.0) % Plt Count 278 (150-450) 10^3/uL MPV 10.3 (9.5-13.5) fL Neut % (Auto) 53.5 (43.0-75.0) % Lymph % (Auto) 31.1 (20.5-60.0) % Stark % (Auto) 9.0 (1.7-12.0) % Eos % (Auto) 5.2 (0.9-7.0) % Baso % (Auto) 1.0 (0.2-2.0) % Neut # (Auto) 5.0 (1.4-6.5) 10^3/uL Lymph # (Auto) 2.9 (1.2-3.8) 10^3/uL Stark # (Auto) 0.8 (0.3-0.8) 10^3/uL Eos # (Auto) 0.5 (0.0-0.7) 10^3/uL Baso # (Auto) 0.1 (0.0-0.1) 10^3/uL Abs Immat Gran (auto) 0.02 (0.00-0.03) 10^3/uL Imm/Tot Granulo (auto) 0.2 (0.0-0.5) % Urine Color Yellow (YELLOW) Urine Clarity Clear (CLEAR) Urine pH 5.5 (5.0-9.0) Ur Specific [place] >=1.030 A (1.005-1.025) Urine Protein Trace (NEG/TRACE) mg/dL Urine Glucose (UA) Negative (NEGATIVE) mg/dL Urine Ketones Negative (NEGATIVE) mg/dL Urine Occult Blood Large A (NEGATIVE) Urine Nitrite Negative (NEGATIVE) Urine Bilirubin Negative (NEGATIVE) Urine Urobilinogen 1.0 (0.2-1.0) EU/dL Ur Leukocyte Esterase Negative (NEGATIVE) Urine RBC 75-100 A (0-2) #/HPF Urine WBC 0-2 A (NONE SEEN) #/HPF Ur Squamous Epith Cells Many A (NONE/RARE) #/LPF Urine Crystals None seen (None Seen) #/HPF Urine Bacteria Moderate A (NONE SEEN) #/HPF Urine Casts None seen (NONE SEEN) #/LPF Urine Mucus Moderate A (NONE SEEN) Ur Culture Indicated? Yes Discharge Plan Discharge Chief Complaint: Abdominal Pain Clinical Impression: Calculus of kidney, UTI (urinary tract infection) Patient Disposition: Home, Self-Care Time of Disposition Decision: 20:09 Condition: Good Prescriptions / Home Meds: New tramadol 50 mg tablet 50 mg PO Q8H PRN (Reason: pain) 3 Days Qty: 9 0RF tamsulosin [Flomax] 0.4 mg capsule 0.4 mg PO DAILY Qty: 10 0RF sulfamethoxazole-trimethoprim [Bactrim DS] 800-160 mg tablet 1 tab PO BID 7 Days Qty: 14 0RF No Action omeprazole 40 mg capsule,delayed release(DR/EC) 40 mg PO QPM meloxicam 15 mg tablet aripiprazole 15 mg tablet Print Language: [place] Instructions: Kidney Stones (ED), Urinary Tract Infection in Women (DC) Referrals: Mark Urbina MD [Physician] - 1 week Essie Ryan NP [Primary Care Provider] - 1 week Discharge Date/Time: 06/08/24 20:45
--- NOTE | 2024-06-08 17:06 | CT_ITS ---
The [address] [address] Patient Name: GAMAL FIGUEROA MRN: [id number] date: 1975 Sex: F Assigned Patient Location: ER Current Patient Location: Accession/Order Number: [id number] Exam Date: 06/08/2024 17:40 Report Date: 06/08/2024 19:40 At the request of: JOSE BUI Procedure: CT abdomen pelvis wo con EXAM: CT abdomen pelvis wo con TECHNIQUE: Axial CT images were obtained of the abdomen and pelvis without intravenous contrast. Sagittal and coronal reformatted images were also obtained. Dose reduction techniques were achieved by using automated exposure control and/or adjustment of mA and/or kV according to patient size and/or use of iterative reconstruction technique. HISTORY: Left flank pain COMPARISON: None. FINDINGS: Lower chest: The lower lungs are clear. Liver: The liver is homogeneous with normal contours and normal size. Gallbladder: The gallbladder is unremarkable. There is no intra or extrahepatic biliary dilatation. Pancreas: The pancreas is homogeneous without evidence for mass lesion or inflammation. Spleen: The spleen is unremarkable without evidence for mass lesion. Adrenal glands: The adrenal glands are unremarkable Kidneys and bladder: 5 mm nonobstructing stone lower pole left kidney. 6 mm nonobstructing stone lower pole right kidney. No hydronephrosis. 2.5 mm stone at the left ureterovesical junction. The ureters demonstrate normal caliber. The urinary bladder appears unremarkable given lack of distention. GI Tract: Stomach is unremarkable. Visualized small bowel is unremarkable without evidence for obstruction or active inflammation. The visualized portion of the large bowel is unremarkable. Reproductive: No pelvic mass lesion. Lymph nodes: No retroperitoneal or abdominal lymphadenopathy. Vascular: The aorta is not dilated. Peritoneum: No free air or free fluid. Abdominal wall: Degenerative facet changes of the left at L5-S1. CT/CT abdomen pelvis wo con IMPRESSION: 2.5 mm stone at the left ureterovesical junction without significant ureteral dilatation. Additional nonobstructing stones of both kidneys. There is no acute inflammatory process. No bowel obstruction. Electronically authenticated by: AVEL IRVIN Date: 06/08/2024 19:40
[2024-06-08 17:14] VITALS: O2SAT 97
[2024-06-08] MEDS: ONDANSETRON PF 4 MG/2 ML VIAL IV (17:30)
[2024-06-08] MEDS: KETOROLAC TROMETHAMINE 30 MG/ML VIAL IVP (17:30)
[2024-06-08] MEDS: HYDROMORPHONE HCL 1 MG/ML CARTRIDGE IVP (17:31)
[2024-06-08 17:40] LABS: Basophils Absolute Auto 0.1 10^3/uL (0.0-0.1); Eosinophils Absolute Auto 0.5 10^3/uL (0.0-0.7); Eosinophils Percent Auto 5.2 % (0.9-7.0); Hematocrit 39.5 % (36.0-48.0); Hemoglobin 12.9 g/dL (12.0-16.0); Immature Granulocytes Abs Auto 0.02 10^3/uL (0.00-0.03); Immature Granulocytes Pct Auto 0.2 % (0.0-0.5); Lymphocytes Absolute Auto 2.9 10^3/uL (1.2-3.8); Lymphocytes Percent Auto 31.1 % (20.5-60.0); Mean Corpuscular HGB Conc 32.7 g/dL (29.9-35.2); Mean Corpuscular Hemoglobin 29.3 pg (26.7-34.0); Mean Corpuscular Volume 89.6 fL (81.0-99.0); Mean Platelet Volume 10.3 fL (9.5-13.5); Monocytes Absolute Auto 0.8 10^3/uL (0.3-0.8); Neutrophils Percent Auto 53.5 % (43.0-75.0); Platelet Count 278 10^3/uL (150-450); Red Blood Count 4.41 10^6/uL (4.20-5.40); Red Cell Distribution Width 12.3 % (11.0-15.0); White Blood Count 9.4 10^3/uL (4.0-11.0)
[2024-06-08 17:42] LABS: Bilirubin Urine NEGATIVE (NEGATIVE); Blood Urine LARGE (NEGATIVE); Clarity Urine CLEAR (CLEAR); Color Urine YELLOW (YELLOW); Glucose Urine UA NEGATIVE (NEGATIVE); Ketones Urine NEGATIVE (NEGATIVE); Leukocyte Esterase Urine NEGATIVE (NEGATIVE); Nitrite Urine NEGATIVE (NEGATIVE); Protein Urine TRACE mg/dL (NEG/TRACE); Specific Gravity Urine >=1.030 (1.005-1.025); pH Urine 5.5 (5.0-9.0)
[2024-06-08 17:43] LABS: Urine Microscopic Indicated YES
[2024-06-08 17:53] LABS: Bacteria Urine MODERATE #/HPF (NONE SEEN); Cast Seen? NONE SEEN #/LPF (NONE SEEN); Crystals Seen? None Seen #/HPF (None Seen); Mucus Urine MODERATE (NONE SEEN); RBC Urine 75-100 #/HPF (0-2); Squamous Epithelial Cell Urine MANY #/LPF (NONE/RARE); Urine Culture Indicated YES; WBC Urine 0-2 #/HPF (NONE SEEN)
[2024-06-08] MEDS: SULFAMETHOXAZOLE/TRIMETHOPRIM 800-160 MG TABLET 1 TAB PO (20:33)
[2024-06-08 20:50] VITALS: BP 142/84; PULSE 84; O2SAT 97
== END 2024-06-08 20:45 | disposition home or self-care (01) ==
PROVIDERS: Emergency Provider Emergency Medicine Emergency Medical Services; PCP Nurse Practitioner
DX: N39.0 Urinary tract infection, site not specified (principal); N20.0 Calculus of kidney; Z87.442 Personal history of urinary calculi; Z90.49 Acquired absence of other specified parts of digestive tract; Z90.710 Acquired absence of both cervix and uterus
CPT/HCPCS: 36415; 74176; 81001; 85025; 87086; 96374; 96375; 99285; J1171; J1885; J2405

== ENCOUNTER 2024-08-29 07:04 | Outpatient (OUT) | payer OTHER, SELFPAY ==
--- OUTSIDE RECORDS SUMMARY | 2024-08-29 07:09 | XMS_ITS | CCD ---
Author Organization [facility] Care Team Providers Care Sales Associate Cashier Name Role Phone PHYSICIAN, DEFAULT Unavailable Unavailable PHYSICIAN, DEFAULT Unavailable Unavailable AICHHOLZ, ESSIE Unavailable Unavailable PHYSICIAN, DEFAULT Unavailable Unavailable PHYSICIAN, DEFAULT Unavailable Unavailable AICHHOLZ, ESSIE Unavailable Unavailable PHYSICIAN, DEFAULT Unavailable Unavailable PHYSICIAN, DEFAULT Unavailable Unavailable SHELBY ESSIE Unavailable Unavailable Alexis Saenz II Unavailable Aichsienaz Essie BAH Primary Care Provider Adán Torres Unavailable Dany ARDON MD, Robert M Unavailable Adán Torres DO Unavailable [phone] ESSIE RYAN Primary Care Physician [phone] Aichholz Essie BAH Primary Care Provider Adán Torres DO Unavailable [phone] Dany ARDON MD, Robert M Unavailable CAN VALERA Attending Unavailable CAN VALERA Consulting Unavailable AICHHOLKamila, NIURKA ESSIE Primary Care Unavailable CAN VALERA Admitting Unavailable ANDREW ., DR MARKO Stafford Admitting Unavailable ANDREW ., DR MARKO Stafford Attending Unavailable AICHHOLZ, CERAMIC MOLD DESIGNER ESSIE Primary Care Unavailable ARTURO VANEGAS Consulting Unavailable ANDREW ., DR MARKO Stafford Attending Unavailable MORALES ., DR MARKO Stafford Consulting Unavailable AICHHOLKamila, CERAMIC MOLD DESIGNER ESSIE Primary Care Unavailable ANDREW ., DR MARKO Stafford Admitting Unavailable ADRIANNA JIMENEZ Attending Unavailable ADRIANNA JIMENEZ Consulting Unavailable ADRIANNA JIMENEZ Admitting Unavailable AICHHOLZ, CERAMIC MOLD DESIGNER ESSIE Primary Care Unavailable PAULETTE PHIPPS Consulting Unavailable [facility]ICHHOLZ, [facility] Unavailable GARCIA ., DR BAILEY Attending Unavailable GARCIA ., DR BAILEY Consulting Unavailable GARCIA ., DR BAILEY Admitting Unavailable WEST, DR PAULETTE León Consulting Unavailable MORALES ., DR MARKO Stafford Admitting Unavailable MORALES ., DR MARKO Stafford Attending Unavailable MORALES ., DR MARKO Stafford Consulting [facility] Primary Care Unavailable DELANEY ., ARTURO Consulting Unavailable MORALES ., DR MARKO Stafford Admitting Unavailable MORALES ., DR MARKO Stafford Attending Unavailable AICHOL, [facility] Primary Care Unavailable YOBANY ., DR RASMUSSEN Attending Unavailable AICHOLZ, [facility] Primary Care Unavailable YOBANY ., DR RASMUSSEN Admitting Unavailable WEST, DR PAULETTE León Consulting Unavailable YOBANY ., DR RASMUSSEN Consulting Unavailable [facility], [facility] Primary Care Unavailable GARCIA ., DR BAILEY Admitting Unavailable GARCIA ., DR BAILEY Attending Unavailable GARCIA ., DR BAILEY Consulting Unavailable ZIEBER, DR PREET Palafox Consulting Unavailable TIMMIS, DR RED Attending Unavailable TIMMIS, DR RED Consulting Unavailable TIMMIS, DR RED Admitting Unavailable AICHHOLZ, [facility] Primary Care Unavailable ZIEBER, DR PREET Palafox Consulting Unavailable TIMMIS, DR RED Attending Unavailable TIMMIS, DR RED Consulting Unavailable TIMMIS, DR RED Admitting Unavailable AICHHOLZ, [facility] Primary Care Unavailable ZIEBER, DR PREET Palafox Consulting Unavailable TIMMIS, DR RED Attending Unavailable TIMMIS, DR RED Consulting Unavailable AICHOLZ, [facility] Primary Care Unavailable TIMMIS, DR RED Admitting Unavailable WEST, DR PAULETTE León Consulting Unavailable AICHHOLZ, [facility] Primary Care Unavailable GARCIA ., DR BAILEY Attending Unavailable GARCIA ., DR BAILEY Consulting Unavailable GARCIA ., DR BAILEY Admitting Unavailable ZIEBER, DR PREET Palafox Consulting Unavailable LAKSHMIPATHY ., NARENDRANMONA Attending Marleni vailable AICHHOLZ, [facility] Primary Care Unavailable LAKSHMIPATHY ., BYRON Admitting Marleni vailable MORALES ., DR MARKO Stafford Admitting Unavailable MORALES ., DR MARKO Stafford Attending Unavailable MORALES ., DR MARKO Stafford Consulting Unavailable AICHOLZ, [facility] Primary Care Unavailable DELANEY ., ARTURO Consulting Unavailable AICHHOLZ, CERAMIC MOLD DESIGNER ESSIE Primary Care Unavailable COLE, DR PAULETTE León Consulting Unavailable GARCIA ., DR BAILEY Attending Unavailable GARCIA ., DR BAILEY Admitting Unavailable AICHHOLZ, CERAMIC MOLD DESIGNER ESSIE Consulting Unavailable YOBANY ., DR RASMUSSEN Attending Unavailable YOBANY ., DR RASMUSSEN Consulting Unavailable AICHHOLZ, CERAMIC MOLD DESIGNER ESSIE Primary Care Unavailable YOBANY ., DR RASMUSSEN Admitting Unavailable AICHHOLZ, CERAMIC MOLD DESIGNER ESSIE Primary Care Unavailable AICHHOLZ, CERAMIC MOLD DESIGNER ESSIE Attending Unavailable AICHHOLZ, CERAMIC MOLD DESIGNER ESSIE Consulting Unavailable AICHHOLZ, CERAMIC MOLD DESIGNER ESSIE Admitting Unavailable DELANEY ., ARTURO Admitting Unavailable DELANEY ., ARTURO Attending Unavailable AICHHOLZ, CERAMIC MOLD DESIGNER ESSIE Primary Care Unavailable ZIEBER, DR PREET Palafox Consulting Unavailable DELANEY ., ARTURO Consulting Unavailable TIMMIS, DR RED Attending Unavailable TIMMIS, DR RED Consulting Unavailable TIMMIS, DR RED Admitting Unavailable AICHHOLZ, CERAMIC MOLD DESIGNER ESSIE Primary Care Unavailable ZIEBER, DR PREET Palafox Consulting Unavailable DIAB ., EDNA Attending Unavailable DIAB ., EDNA Admitting Unavailable MARKER ., DR JIMÉNEZ Consulting Unavailable AICHHOLZ, CERAMIC MOLD DESIGNER ESSIE Primary Care Unavailable DIAB ., EDNA Consulting Unavailable OWOYELE, MISTY Consulting Unavailable AICHHOLZ, CERAMIC MOLD DESIGNER ESSIE Primary Care Unavailable AICHHOLZ, CERAMIC MOLD DESIGNER ESSIE Attending Unavailable AICHHOLZ, CERAMIC MOLD DESIGNER ESSIE Consulting Unavailable AICHHOLZ, CERAMIC MOLD DESIGNER ESSIE Admitting Unavailable ZIEBER, DR PREET Palafox Consulting Unavailable MORALES ., DR MARKO Stafford Attending Unavailable MORALES ., DR MARKO Stafford Admitting Unavailable AICHHOLZ, CERAMIC MOLD DESIGNER ESSIE Primary Care Unavailable MICHAEL, DR MCCARTHY Referring Unavailable JOSE ., DR BAILEY Consulting Unavailable MORALES ., DR MARKO Stafford Consulting Unavailable Juliana Block Unavailable CINTHYA JACKSON Attending Unavailable CINTHYA JACKSON Referring Unavailable AICHHOLZ, ESSIE J Primary Care Unavailable CINTHYA JACKSON Admitting Unavailable CINTHYA JACKSON Attending Unavailable AICHHOLZ, ESSIE J Referring Unavailable AICHHOLZ, ESSIE J Primary Care Unavailable EVANS GUO Attending Unavailable AICHHOLZ, ESSIE J Referring Unavailable AICHHOLZ, ESSIE J Primary Care Unavailable HENOK CHAN Attending Unavailable AICHHOLZ, ESSIE J Referring Unavailable AICHHOLZ, ESSIE J Primary Care Unavailable HENOK CHAN Attending Unavailable AICHHOLZ, ESSIE J Referring [...] TINO Attending Unavailable SRAVANI, TINO Attending Unavailable ALEXANDREA HOLDEN Attending Unavailable SRAVANI, TNIO Referring Unavailable Aichholz NIURKA, Essie Geiger Primary Care Provider [phone] Adán Torres DO R Unavailable Dany ARDON MD, Alexis Cummins Unavailable Angel Delgado DO Unavailable [phone] Yuriy Martins MD Primary Care Provider [phone] Aichholz SHANK TURNER, Essie Unavailable Aichholz SHANK TURNER, Essie Unavailable AICHHOLZ, ESSIE Attending Unavailable TIMMISNEDA H Attending Unavailable AICHHOLZ, ESSIE Attending Unavailable MARY DANIELS Attending Unavailable AICHHOLZ, ESSIE Referring Unavailable TIMMIS NEDA H Attending Unavailable AICHHOLZ, ESSIE Referring Unavailable AICHHOLZ, ESISE Attending Unavailable SHAIKH WHITE Attending Unavailable JANET MODI Attending Unavailable SHAIKH WHITE Attending Unavailable JAMIE RANDHAWA Attending Unavailable ANGEL DELGADO Referring Unavailable JAMIE RANDHAWA Attending Unavailable ANGEL DELGADO Referring Unavailable KOLE FULTON Attending Unavailable DELGADOANGEL BRAVO Referring Unavailable JOSIAS LOPEZ Attending Unavailable KYLE MCNEIL Referring Unavailable KELBLEY, TINO Attending Unavailable EWAKYLE Referring Unavailable KELBLEY, TINO Attending Unavailable EWAKYLE L Referring Unavailable KELBLEY, TINO Attending Unavailable KYLE MCNEIL Referring Unavailable JOSIAS LOPEZ Attending Unavailable KYLE MCNEIL Referring Unavailable AICHHOLZESSIE Attending Unavailable AICHHOLZ, ESSIE Attending Unavailable AICHHOLZ, ESSIE Attending Unavailable JEFF ROSSI Attending Unavailable AICHHOLZ, ESSIE J Referring Unavailable AICHHOLZ, ESSIE J Primary Care Unavailable JEFF ROSSI Attending Unavailable AICHHOLZ, ESSIE J Referring Unavailable AICHHOLZ, ESSIE J Primary Care Unavailable Yuriy Martins MD Primary Care Provider LOIS MCKEON Admitting Unavailable LOIS MCKEON Attending Unavailable AICHHOLZ, ESSIE ANÍBAL Primary Care Unavailable REGINE MTZ Consulting UnavailLOIS Vazquez Attending Unavailable AICHHOLZ, ESSIE ANÍBAL Primary Care Unavailable LOIS MCKEON Attending Unavailable AICHHOLZ, ESSIE ANÍBAL Primary Care Unavailable MAYITO GIFFORD Referring Unavailable AICHHOLZ, ESSIE ANÍBAL Primary Care Unavailable LOIS MCKEON Attending Unavailable AICHHOLZ, ESSIE ANÍBAL Primary Care Unavailable LOIS MCKEON Referring Unavailable AICHHOLZ, ESSIE ANÍBAL Primary Care Unavailable NEGRITA TEJEDA Referring Unavailable AICHHOLZ, ESSIE ANÍBAL Primary Care Unavailable LOIS MCKEON Referring Unavailable AICHHOLZ, ESSIE ANÍBAL Primary Care Unavailable AICHHOLZ, ESSIE J Referring Unavailable AICHHOLZ, ESSIE J Primary Care Unavailable WERVINICIUS JEFF W Admitting Unavailable WERJEFF COLVIN W Attending Unavailable AICHHOLZ, ESSIE J Primary Care Unavailable LAYNE HOGUE Attending Unavailable AICHHOLZ, ESSIE J Primary Care Unavailable WERNING, JFEF W Referring Unavailable AICHHOLZ, ESSIE J Primary Care Unavailable WERNING, JEFF W Admitting Unavailable WERNINGJEFF W Attending Unavailable JEFF ROSSI W Referring Unavailable AICHHOLZ, ESSIE J Primary Care Unavailable Allergies Allergy Classification Reported Allergen(s) Allergy Type Date of Onset Reaction(s) Facility (9 sources) Penicillins; Translations: [PENICILLINS] Drug allergy (disorder) 09-21-19 12 [facility] Repository (3 sources) Penicillin V Drug Allergy Fever [facility] Other (12 sources) Penicillins Drug Allergy 07-27-19 17 Unknown [facility] (9 sources) History of - penicillin allergy (context-depend ent category); Translations: [H/O: penicillin allergy] Drug allergy [facility] (1 source) Penicillin Drug Allergy Fever Floq [facility] Synfora Other (16 sources) Penicillins Drug Intolerance 06-13-20 14 Other, Unknown [facility] Work Phone: Medications Current Medications Medication Drug Class(es) Dates Sig (Normalized) Sig (Original) acetaminophen 325 mg oral tablet (16 sources) Start: 09-22-2016 take 2 tablets by [...] as needed. ARIPiprazole 15 mg oral tablet (20 sources) Atypical Antipsychotic Start: 04-10-20 24 End: 09-28-19 25 take 1 tablet by mouth once daily ARIPiprazole (Abilify) 15 MG tablet Indications: Bipolar disorder, unspecified (CMS/HCC) Take 1 tablet (15 mg) by mouth Daily 30 tablet 3 08/28/2024 09/27/2024 Active Start: 01-30-2024 End: 04-10-2024 take 1 tablet by mouth once daily ARIPiprazole (Abilify) 10 MG tablet Indications: Bipolar disorder, unspecified (CMS/HCC) Take 1 tablet (10 mg) by mouth Daily 30 tablet 1 02/29/2024 03/30/2024 Active take 1 tablet by billie th once daily ARIPiprazole (ABILIFY) 30 mg tablet Take 1 tablet by mouth once daily. Active aspirin 81 mg delayed release oral tablet (2 sources) Platelet Aggregation Inhibitor, Nonsteroidal Anti-inflammatory Drug Start: 06-30-2024 take 1 tablet by mouth twice daily aspirin, enteric coated (ECOTRIN LOW STRENGTH) 81 mg EC tablet Take 1 tablet by mouth two times a day for 28 days. 56 tablet 06/30/2024 Active atorvastatin 80 mg oral tablet (20 sources) HMG-CoA Reductase Inhibitor Start: 03-06-2024 End: 09-27-2024 take 1 tablet by mouth in the evening atorvastatin (Lipitor) 80 MG tablet Indications: Mixed hyperlipidemia (CMS/HCC) Take 1 tablet (80 mg) by mouth in the evening 30 tablet 3 08/28/2024 09/27/2024 Active Start: 05-29-2023 atorvastatin 1 0 mg Tab Refills(s) 0 Start Date: 05/29/23 Status: Ordered Start: 10-13-2020 End: 06-05-2024 take 1 tablet by mouth once daily atorvastatin (LIPITOR) 20 mg tablet Take 20 mg by mouth once daily. 10/13/2020 06/05/2024 Discontinued End: 04-10-2024 take 1 tablet by mouth in the evening atorvastatin (Lipitor) 40 MG tablet Indications: Hyperlipidemia Take 40 mg by mouth in the evening 04/10/2024 Discontinued (Therapy completed) Comment on above: Take 20 mg by mouth once daily. busPIRone hydrochloride 15 mg oral tablet (20 sources) Start: 08-28-2024 End: 09-27-2024 take 0.5 tablet by mouth in the morning busPIRone (Buspar) 15 MG tablet Indications: Anxiety Take 0.5 tablets (7.5 mg) by mouth in the morning and 0.5 tablets (7.5 mg) before bedtime. 60 tablet 3 08/28/2024 09/27/2024 Active Start: 05-29-2023 busPIRone 7.5 mg oral tablet Refills(s) 0 Start Date: 05/29/23 Status: Ordered End: 08-28-2024 take 7.5 mg by mouth in the morning busPIRone (Buspar) 15 MG tablet Take 7.5 mg by mouth in the morning and 7.5 mg in the evening. 08/28/2024 Discontinued (Reorder) cetirizine hydrochloride 10 mg oral tablet (20 sources) Histamine-1 Receptor Antagonist Start: 08-17-2023 End: 06-05-2024 take 1 tablet by mouth once daily cetirizine (ZyrTEC) 10 MG tablet Indications: Chronic rhinitis Take 1 tablet (10 mg) by mouth Daily 30 tablet 5 02/29/2024 03/30/2024 Active Comment on above: Take 10 mg by mouth once daily. docusate sodium 100 mg oral capsule (2 sources) Start: 06-30-2024 take 1 capsule by mouth twice daily docusate sodium (COLACE) 100 mg capsule Take 1 capsule by mouth two times a day. Take colace while taking narcotics to decrease your risk of constipation 60 capsule 06/30/2024 Active naloxone hydrochloride 40 mg/ml nasal spray (2 sources) Opioid Antagonist Start: 06-30-2024 naloxone 4 mg/actuation nasal spray (NARCAN) Use 1 spray in one nostril as needed for overdose. May repeat every 2 to 3 min in alternating nostrils until medical assistance is available 2 Each 06/30/2024 Active Aleve (8 sources) Nonsteroidal Anti-inflammatory Drug Start: 02-25-2022 take 1 mg by mouth every twelve hours Aleve mg, Oral, q12hr, Refills(s) 0 Start Date: 02/25/22 Status: Ordered pantoprazole 20 mg delayed release oral tablet (2 sources) Proton Pump Inhibitor Start: 06-30-2024 take 1 tablet by mouth once daily pantoprazole DR (PROTONIX) 20 mg tablet Take 1 tablet by mouth once daily for 14 days. 14 tablet 06/30/2024 Active polyethylene glycol 3350 [id number] mg / potassium chloride 1480 mg / sodium bicarbonate 5720 mg / sodium chloride 25964 mg powder for oral solution (3 sources) Osmotic Laxative Start: 11-28-2022 NuLYTELY [place] oral powder for reconstitution See Instructions, 1 EA, Refill(s) 0, See physician instructions prior to procedure., [id number], 155, cm, 11/24/22 13:47:00 EDT, Height/Length Dosing, 88.2, kg, 11/24/22 13:47:00 EDT, Weight Dosing Start Date: 11/28/22 Status: Ordered traMADol hydrochloride 50 mg oral tablet (12 sources) Opioid Agonist Start: 02-19-2024 take 1 tablet by mouth every six [...] mL injection carBAMazepine 200 mg oral tablet (10 sources) Mood Stabilizer End: 06-05-2024 carBAMazepine (TEGRETOL) 200 mg tablet Take 300 mg by mouth daily at bedtime. 06/05/2024 Discontinued Comment on above: Take 300 mg by mouth daily at bedtime. ciprofloxacin 500 mg oral tablet (1 source) Quinolone Antimicrobial Start: 03-03-2022 take 1 tablet by mouth once daily Cipro 500 mg Tab 500 mg = 1 tab(s), Oral, Daily, Take 1 tablet the day before the procedure and 1 tablet after the procedure, # 2 tab(s), Refills(s) 0, Pharmacy: [id number], 155, cm, 03/03/22 15:04:00 EDT, Height/Length Dosing, 90, kg, 02/25/22 10:22:00 EDT, [place]... Start Date: 03/03/22 Status: Ordered citalopram 20 mg oral tablet (10 sources) Serotonin Reuptake Inhibitor End: 06-05-2024 take 1 tablet by mouth once daily citalopram (CELEXA) 20 mg tablet Take 20 mg by mouth once daily. 06/05/2024 Discontinued Comment on above: Take 20 mg by mouth once daily. 1 ml dexamethasone phosphate 4 mg/ml injection (1 source) Corticosteroid Start: 12-31-2021 End: 12-31-2021 dexAMETHasone sodium phosphate 4 mg injection (DECADRON) Start: 12-31-2021 End: 12-31-2021 dexAMETHasone sodium phospha te 4 mg injection (DECADRON) meloxicam 15 mg oral tablet (20 sources) Nonsteroidal Anti-inflammatory Drug Start: 12-09-2021 End: 08-28-2024 take 1 tablet by mouth in the morning meloxicam (Mobic) 15 MG tablet Take 15 mg by mouth in the morning. 09/12/2023 08/28/2024 Discontinued (Therapy completed) mupirocin 0.02 mg/mg topical ointment (4 sources) RNA Synthetase Inhibitor Antibacterial Start: 06-05-2024 End: 08-28-2024 mupirocin (Bactroban) 2 % ointment apply 0.5 in with q-tip to each nostril TWICE DAILY (IN THE MORNING and IN THE EVENING) FOR 5 DAYS prior to and including day OF surgery 06/05/2024 08/28/2024 Discontinued (Therapy completed) omeprazole 40 mg delayed release oral capsule (20 sources) Proton Pump Inhibitor Start: 10-10-2023 End: 09-27-2024 take 1 capsule by mouth before mealtime omeprazole (PriLOSEC) [address] capsule Indications: Gastroesophageal reflux disease, unspecified whether esophagitis present Take 1 capsule (40 mg) by mouth in the morning. Take before meals. 30 capsule 5 04/10/2024 08/28/2024 Discontinued (Reorder) Start: 12-23-2010 Prilosec Oral, Daily, Refills(s) 0 Start Date: 12/23/10 Status: Ordered PriLOSEC 10 MG a s directed Orally Active Comment on above: Take 40 mg by mouth once daily. sulfamethoxazole 800 mg / trimethoprim 160 mg oral tablet (3 sources) Dihydrofolate Reductase Inhibitor Antibacterial, Sulfonamide Antimicrobial Start: End: take 1 tablet by mouth once in the morning, then take 1 tablet by mouth once at bedtime sulfamethoxazole-tr imethoprim (Bactrim DS) 800-160 MG per tablet Take 1 tablet by mouth in the morning and 1 tablet before bedtime. 06/09/2024 08/28/2024 Discontinued (Therapy completed) tamsulosin hydrochloride 0.4 mg oral capsule (3 sources) alpha-Adrenergic Roderick Start: End: take 1 capsule by mouth once daily tamsulosin (Flomax) 0.4 MG 24 hr capsule Take by mouth Daily 06/09/2024 08/28/2024 Discontinued (Therapy completed) Problems Active Problems Problem Classification Problem Date Documented Date Episodic/Chronic Anxiety disorders (20 sources) Anxiety disorder; Translations: [Anxiety] Onset: 07-25-2023 12-23-2010 Chronic Cardiac dysrhythmias (4 sources) Palpitations; Translations: [PALPITATIONS] Onset: 11-22-2022 Episodic Conditions associated with dizziness or vertigo (4 sources) Dizziness and giddiness; Translations: [Dizziness and giddiness] Onset: 08-28-2024 08-28-2024 Episodic Disorders of lipid metabolism (20 sources) Hyperlipidemia; Translations: [Other hyperlipidemia] Onset: 12-14-2020 Resolved: 01-14-2023 12-14-2020 Chronic Esophageal disorders (20 sources) Gastroesophageal reflux disease; Translations: [Gastro-esophageal reflux disease without esophagitis] Onset: 09-23-2022 12-16-2020 Chronic Mood disorders (20 sources) Bipolar disorder; Translations: [Bipolar disorder, unspecified] Onset: 08-19-2017 Resolved: 05-29-2024 12-16-2020 Chronic Osteoarthritis (20 sources) Unilateral primary osteoarthritis, right hip; Translations: [Osteoarthritis of right hip joint] Onset: 06-14-2022 03-19-2024 Chronic Other acquired deformities (16 sources) Contracture of joint of left ankle; Translations: [Contracture, left ankle] Onset: 01-30-2024 01-30-2024 Chronic Other connective tissue disease (2 sources) History of repair of hip joint; Translations: [Presence of right artificial hip joint] 04-16-2024 Chronic Other connective tissue disease (7 sources) History of total hip arthroplasty; Translations: [Presence of right artificial hip joint] Onset: 07-01-2024 07-01-2024 Chronic Other connective tissue disease (1 source) Presence of right artificial hip joint; Translations: [Status post right hip replacement] Onset: 07-30-2024 Chronic Other connective tissue disease (3 sources) [...] Episodic Other ear and sense organ disorders (20 sources) Sensorineural hearing loss, bilateral; Translations: [Sensorineural hearing loss, bilateral] Onset: 01-14-2023 01-14-2023 Chronic Other injuries and conditions due to external causes (1 source) Foreign body in colon, sequela; Translations: [FOREIGN BODY IN COLON SEQUELA] Onset: 09-23-2022 Episodic Other nervous system disorders (1 source) Other chronic pain; Translations: [Other chronic pain] Onset: 08-21-2023 Chronic Other nervous system disorders (20 sources) Median nerve neuritis; Translations: [Other lesions of median nerve, left upper limb] Onset: 02-29-2024 02-29-2024 Chronic Other nervous system disorders (16 sources) Chronic pain; Translations: [Other chronic pain] Onset: 01-14-2023 Resolved: 01-14-2023 01-14-2023 Chronic Other nervous system disorders (1 source) Other acute postprocedural pain; Translations: [Acute postoperative pain] Onset: 07-01-2024 Episodic Other nutritional; endocrine; and metabolic disorders (20 sources) Body mass index 30+ - obesity; Translations: [Body mass index (BMI) 38.0-38.9, adult] Onset: 07-04-2023 Resolved: 04-10-2024 07-04-2023 Chronic Other nutritional; endocrine; and metabolic disorders (20 sources) Obesity caused by energy imbalance; Translations: [Morbid (severe) obesity due to excess calories] Onset: 01-30-2024 01-30-2024 Chronic Other screening for suspected conditions (not mental disorders or infectious disease) (20 sources) Encounter for screening for malignant neoplasm of cervix; Translations: [Encounter for screening mammogram for malignant neoplasm of breast] Onset: 02-09-2022 Episodic Other skin disorders (4 sources) Localized swelling, mass and lump, neck; Translations: [LOCALIZED SWELLING MASS AND LUMP NECK] Onset: 10-04-2022 Episodic Other upper respiratory disease (20 sources) Chronic rhinitis; Translations: [Chronic rhinitis] Onset: 2023 2023 Chronic Other upper respiratory infections (16 sources) Chronic sinusitis; Translations: [Other chronic sinusitis] Onset: 07-13-2023 Resolved: 01-30-2024 01-30-2024 Chronic Pulmonary heart disease (20 sources) Pulmonary hypertension; Translations: [Pulmonary hypertension, unspecified] Onset: 11-08-2022 Resolved: 08-28-2024 09-07-2016 Chronic Regional enteritis and ulcerative colitis (20 sources) Crohn's disease; Translations: [Crohn's disease, unspecified, without complications] Onset: 09-21-2011 Resolved: 08-28-2024 07-27-2016 Chronic Residual codes; unclassified (20 sources) [...] 01-14-2023 02-25-2022 Episodic Calculus of urinary tract (20 sources) Kidney stone; Translations: [Calculus of kidney] Onset: 04-22-2022 Episodic Genitourinary symptoms and ill-defined conditions (20 sources) Lora hematuria; Translations: [Blood in urine] Onset: 04-26-2022 Resolved: 01-14-2023 02-25-2022 Episodic Immunizations and screening for infectious disease (13 sources) Needs influenza immunization; Translations: [Encounter for immunization] Onset: 04-10-2024 04-10-2024 Episodic Intestinal obstruction without hernia (20 sources) Enterolith of small intestine; Translations: [Other impaction of intestine] Onset: 12-14-2020 Resolved: 08-28-2024 12-16-2020 Episodic Nonspecific chest pain (18 sources) Precordial pain; Translations: [Chest pain] Onset: 02-09-2012 Resolved: 01-14-2023 Episodic Other connective tissue disease (6 sources) Trochanteric bursitis, right hip; Translations: [TROCHANTERIC BURSITIS RIGHT HIP] Onset: 12-09-2021 Resolved: 12-09-2021 Episodic Other connective tissue disease (16 sources) Pain of left heel; Translations: [Pain in left foot] Onset: 10-25-2023 10-25-2023 Episodic Other connective tissue disease (16 sources) Pain in left foot; Translations: [Pain in left foot] Onset: 11-08-2023 11-08-2023 Episodic Other connective tissue disease (16 sources) Disorder of Achilles tendon; Translations: [Other specified disorders of tendon, left ankle and foot] Onset: 10-25-2023 Resolved: 10-25-2023 10-25-2023 Episodic Other lower respiratory disease (16 sources) Disorder of lung; Translations: [Other disorders of lung] Onset: 04-05-2013 Resolved: 08-28-2024 01-14-2023 Episodic Other lower respiratory disease (16 sources) Dyspnea; Translations: [Dyspnea, unspecified] Onset: 04-20-2012 01-14-2023 Episodic Other non-traumatic joint disorders (8 sources) Pain in right hip; Translations: [PAIN IN RIGHT HIP] Onset: 11-17-2021 Resolved: 11-17-2021 Episodic Other non-traumatic joint disorders (1 source) Osteophyte, right hip; Translations: [OSTEOPHYTE RIGHT HIP] Onset: 07-15-2022 Episodic Other non-traumatic joint disorders (20 sources) Hip pain; Translations: [Pain in right hip] Onset: 06-28-2023 03-19-2024 Episodic Other nutritional; endocrine; and metabolic disorders (20 sources) Obesity; Translations: [Obesity, unspecified] Onset: 11-08-2022 Resolved: 01-14-2023 09-07-2016 Chronic Other and delivery including normal (12 sources) Vaginal delivery; Translations: [Encounter for full-term uncomplicated delivery] Onset: 07-27-2016 07-27-2016 Episodic Other upper respiratory infections (20 sources) Acute sinusitis; Translations: [Other acute sinusitis] Onset: 06-07-2023 Resolved: 01-30-2024 01-30-2024 Episodic Otitis media and related conditions (20 sources) Finding of fluid behind tympanic membrane; Translations: [Unspecified nonsuppurative otitis media, right ear] Onset: 07-04-2023 Resolved: 01-30-2024 07-13-2023 Episodic Ovarian cyst (1 source) Other ovarian cyst, left side; Translations: [OTHER OVARIAN CYST LEFT SIDE] Onset: 06-11-2022 Episodic Pleurisy; pneumothorax; pulmonary collapse (16 sources) Pleurisy; Translations: [Pleurisy] Onset: 04-05-2013 01-14-2023 Episodic Residual codes; unclassified (1 source) Family history of malignant neoplasm of breast; Translations: [FAMILY HX MALIG NEOPLASM OF BREAST] Onset: 02-10-2022 Episodic Residual codes; unclassified (1 source) Family history of malignant neoplasm of digestive organs; Translations: [FAM HX MALIG NEOPLASM DIGESTIV ORGN] Onset: 02-10-2022 Episodic Spondylosis; intervertebral disc disorders; other back problems (18 sources) Chronic low back pain; Translations: [Chronic [...] (SUSP) EXPOS COVID-19] Onset: 01-24-2022 Viral infection (20 sources) Disease caused by 2019-nCoV; Translations: [COVID] Onset: 01-24-2022 Resolved: 09-28-2023 07-13-2023 Episodic Viral infection (2 sources) COVID-19; Translations: [COVID-19] Onset: 01-27-2022 Results Test Name Value Interpretation Reference Range Facility OV 07-30-2024 CNOV Office Visit (ORTHST) ---- STACEY SAHU ([id number]) 1975 F Date Time Provider Department 07/30/24 2:10 PM LOIS MCKEON ORTH[facility] During your visit today, we recorded the following information about you: Lois Mckeon MD 07/30/2024 3:03 PM Signed Stacey Sahu 1 month postop right total hip doing well. Wound is healed. Mild groin soreness. Ambulating with a cane. X-rays excellent. I counseled her on her activities and we will see her back for clinical check in 2 months. She did ask about returning to work although does not have a job or a profession. I suggested waiting another month before she seeks an appointment. Lois Mckeon MD Allergies As of Date: 07/30/2024 Noted Allergy Reaction PENICILLINS 07/27/2016 16 - Unknown Date Reviewed: 07/30/2024 Reviewed by: Clarissa Nelson MA - Fully Assessed Reason for Visit: Established Patient [175] Cmt: Surgical consult Post Op [174] Cmt: Surgical consult Primary Visit Diagnosis:Pain of right hip [M25.551] Prescriptions as of 07/30/2024 - pantoprazole DR (PROTONIX) 20 mg tablet Take 1 tablet by mouth once daily for 14 days. - docusate sodium (COLACE) 100 mg capsule Take 1 capsule by mouth two times a day. Take colace while taking narcotics to decrease your risk of constipation - aspirin, enteric coated (ECOTRIN LOW STRENGTH) 81 mg EC tablet Take 1 tablet by mouth two times a day for 28 days. - naloxone 4 mg/actuation nasal spray (NARCAN) Use 1 spray in one nostril as needed for overdose. May repeat every 2 to 3 min in alternating nostrils until medical assistance is available - meloxicam (MOBIC) 15 mg tablet Take 15 mg by mouth once daily. - ARIPiprazole (ABILIFY) 30 mg tablet Take 1 tablet by mouth once daily. - acetaminophen (TYLENOL) 325 mg tablet Take 2 tablets by mouth every 6 hours as needed. - Omeprazole 40 mg capsule Take 40 mg by mouth once daily. Problem List As Of Date 07/30/2024 Noted Resolved (spontaneous vaginal delivery) x 4 [O80] 07/27/2016 Crohn's disease without complication (HCC) bc*07/27/2016 Pulmonary HTN (HCC) [I27.20] Obese [E66.9] NIRMALA (obstructive sleep apnea) [G47.33] GERD (gastroesophageal reflux disease) [K21.9] Crohn's disease of intestine (HCC) [K50.90] Enterolith of small intestine (HCC) [K56.49] 12/14/2020 Bipolar disease, chronic (HCC) [F31.9] 12/14/2020 Generalized abdominal pain [R10.84] 12/14/2020 12/16/2020 Other hyperlipidemia [E78.49] 12/14/2020 BMI 37.0-37.9, adult [Z68.37] 06/05/2024 S/P total right hip arthroplasty [Z96.641] 07/01/2024 Encounter Status:Closed by LOIS MCKEON Jose on 07/30/24 [facility] No Panel InformationOrdered By: Radiologist Radiology on 07-30-2024 [facility] [employer] Work Phone: XR HIP 3V PELV+ AP/LAT RTon 07-30-2024 * * *Final Report* * * DATE OF EXAM: Jul 30 2024 1:33PM STX 5352 - XR HIP 3V PELV+ AP/LAT RT / PROCEDURE REASON: Status post right hip replacement * * * * Physician Interpretation * * * * HISTORY: Status post right hip replacement . FOLLOW UP RIGHT HIP SIOBHAN TECHNIQUE: XR HIP 3V PELV+ AP/LAT RT Laterality: RIGHT Number of different views (projections): 3 COMPARISON: 07/01/2024 RESULT: Postoperative changes of right total hip arthroplasty. Components are intact and well seated. No significant periprosthetic lucency. No evidence of acute fracture or dislocation. Mild narrowing of the left superior hip joint space with small osteophytes. Pubic symphysis is maintained. Bilateral sacroiliac joints are maintained with mild degenerative changes. Partially imaged lower lumbar spine degenerative changes. Mild bilateral pelvic enthesopathy. Surgical clips overlie the right lower quadrant abdomen. Nonspecific rounded/disclike radiodensities overlying the right lower quadrant and superior iliac wing. IMPRESSION: Postoperative changes of right total hip arthroplasty. Nonspecific rounded/disc-like radiodensities overlying the right lower quadrant and iliac wing, which may be external to the patient. Referral Clerk: [facility] Transcribe Date/Time: Jul 30 2024 2:30P Dictated by : OLVIN HOLDER MD This examination was interpreted and the report reviewed and electronically signed by: OLVIN HOLDER MD on Jul 30 2024 2:32PM EST [id number]^ SI^ACN [facility], Radiologist, - 07/30/2024 * * *Final Report* * * DATE OF EXAM: Jul 30 2024 1:33PM STX 5352 - XR HIP 3V PELV+ AP/LAT RT / PROCEDURE REASON: Status post right hip replacement * * * * Physician Interpretation * * * * HISTORY: Status post right hip replacement . FOLLOW UP RIGHT HIP SIOBHAN TECHNIQUE: XR HIP 3V PELV+ AP/LAT RT Laterality: RIGHT Number of different views (projections): 3 COMPARISON: 07/01/2024 RESULT: Postoperative changes of right total hip arthroplasty. Components are intact and well seated. No significant periprosthetic lucency. No evidence of acute fracture or dislocation. Mild narrowing of the left superior hip joint space with small osteophytes. Pubic symphysis is maintained. Bilateral sacroiliac joints are maintained with mild degenerative changes. Partially imaged lower lumbar spine degenerative changes. Mild bilateral pelvic enthesopathy. Surgical clips overlie the right lower quadrant abdomen. Nonspecific rounded/disclike radiodensities overlying the right lower quadrant and superior iliac wing. IMPRESSION: Postoperative changes of right total hip arthroplasty. Nonspecific rounded/disc-like radiodensities overlying the right lower quadrant and iliac wing, which may be external to the patient. Referral Clerk: [facility] Transcribe Date/Time: Jul 30 2024 2:30P Dictated by : OLVIN HOLDER MD This examination was interpreted and the report reviewed and electronically signed by: OLVIN HOLDER MD on Jul 30 2024 2:32PM EST [id number]^ SI^ACN [facility] XR HIP 3V PELV+ AP/LAT RT * * *Final Report* * * DATE OF EXAM: Jul 30 2024 1:33PM STX 5352 - XR HIP 3V PELV+ AP/LAT RT / PROCEDURE REASON: Status post right hip replacement * * * * Physician Interpretation * * * * HISTORY: Status post right hip replacement . FOLLOW UP RIGHT HIP SIOBHAN TECHNIQUE: XR HIP 3V PELV+ AP/LAT RT Laterality: RIGHT Number of different views (projections): 3 COMPARISON: 07/01/2024 RESULT: Postoperative changes of right total hip arthroplasty. Components are intact and well seated. No significant periprosthetic lucency. No evidence of acute fracture or dislocation. Mild narrowing of the left superior hip joint space with small osteophytes. Pubic symphysis is maintained. Bilateral sacroiliac joints are maintained with mild degenerative changes. Partially imaged lower lumbar spine degenerative changes. Mild bilateral pelvic enthesopathy. Surgical clips overlie the right lower quadrant abdomen. Nonspecific rounded/disclike radiodensities overlying the right lower quadrant and superior iliac wing. IMPRESSION: Postoperative changes of right total hip arthroplasty. Nonspecific rounded/disc-like radiodensities overlying the right lower quadrant and iliac wing, which may be external to the patient. Referral Clerk: [facility] Transcribe Date/Time: Jul 30 2024 2:30P Dictated by : OLVIN HOLDER MD This examination was interpreted and the report reviewed and electronically signed by: OLVIN HOLDER MD on Jul 30 2024 2:32PM EST [id number] ACN [facility] Radiology Study observation (narrative) [facility] XR Pelvis and Hip - right AP and Lateral frogon 07-30-2024 IMPRESSION: Postoperative changes of right total hip arthroplasty. Nonspecific rounded/disc-like radiodensities overlying the right lower quadrant and iliac wing, which may be external to the patient. Referral Clerk: [facility] Transcribe Date/Time: Jul 30 2024 2:30P Dictated by : OLVIN HOLDER MD This examination was interpreted and the report reviewed and electronically signed by: OLVIN HOLDER MD on Jul 30 2024 2:32PM EST DIVISION OF RADIOLOGY * * *Final Report* * * DATE OF EXAM: Jul 30 2024 1:33PM STX 5352 - XR HIP 3V PELV+ AP/LAT RT / PROCEDURE REASON: Status post right hip replacement * * * * Physician Interpretation * * * * HISTORY: Status post right hip replacement . FOLLOW UP RIGHT HIP SIOBHAN TECHNIQUE: XR HIP 3V PELV+ AP/LAT RT Laterality: RIGHT Number of different views (projections): 3 COMPARISON: 07/01/2024 RESULT: Postoperative changes of right total hip arthroplasty. Components are intact and well seated. No significant periprosthetic lucency. No evidence of acute fracture or dislocation. Mild narrowing of the left superior hip joint space with small osteophytes. Pubic symphysis is maintained. Bilateral sacroiliac joints are maintained with mild degenerative changes. Partially imaged lower lumbar spine degenerative changes. Mild bilateral pelvic enthesopathy. Surgical clips overlie the right lower quadrant abdomen. Nonspecific rounded/disclike radiodensities overlying the right lower quadrant and superior iliac wing. DIVISION OF RADIOLOGY Provider, [facility] - 07/30/2024 * * *Final Report* * * DATE OF EXAM: Jul 30 2024 1:33PM STX 5352 - XR HIP 3V PELV+ AP/LAT RT / PROCEDURE REASON: Status post right hip replacement * * * * Physician Interpretation * * * * HISTORY: Status post right hip replacement . FOLLOW UP RIGHT HIP SIOBHAN TECHNIQUE: XR HIP 3V PELV+ AP/LAT RT Laterality: RIGHT Number of different views (projections): 3 COMPARISON: 07/01/2024 RESULT: Postoperative changes of right total hip arthroplasty. Components are intact and well seated. No significant periprosthetic lucency. No evidence of acute fracture or dislocation. Mild narrowing of the left superior hip joint space with small osteophytes. Pubic symphysis is maintained. Bilateral sacroiliac joints are maintained with mild degenerative changes. Partially imaged lower lumbar spine degenerative changes. Mild bilateral pelvic enthesopathy. Surgical clips overlie the right lower quadrant abdomen. Nonspecific rounded/disclike radiodensities overlying the right lower quadrant and superior iliac wing. IMPRESSION IMPRESSION: Postoperative changes of right total hip arthroplasty. Nonspecific rounded/disc-like radiodensities overlying the right lower quadrant and iliac wing, which may be external to the patient. Referral Clerk: [facility] Transcribe Date/Time: Jul 30 2024 2:30P Dictated by : OLVIN HOLDER MD This examination was interpreted and the report reviewed and electronically signed by: OLVIN HOLDER MD on Jul 30 2024 2:32PM EST [facility] Rad[facility]ative[facility] HNO ID: [id number] Author: JOSELO GÓMEZ RT(R) Service: Radiology Author Type: Technologist Type: Allied Health Filed: 07/01/2024 10:58 Note Text: Radiology Service Progress Note PATIENT NAME: Stacey Sahu DATE OF SERVICE: July 01, 2024 TIME: 10:58 AM PATIENT IDENTITY VERIFICATION COMPLETED USING TWO (2) IDENTIFIERS: Name and Date of confirmed by patient verbally and Name and Date of confirmed by identification band. FALL SCREENING: Has the patient had 2 falls in the last year or 1 fall with injury or currently using an Ambulatory Assistive Device (Walker, Cane, Wheelchair, Crutches, etc.)? Inpatient: Screened on floor PATIENT GENDER DATA: Female. status: : No status: N/A PATIENT RELEVANT IMPLANT DATA REVIEWED: Not Applicable PATIENT PRESENTS WITH AN IMPLANTABLE OR ATTACHED GAS PLANT DISPATCHER: No RADIOLOGY DEPARTMENT: General X-ray: Exam(s) Completed: Pelvis X-Ray: Pelvis General AP PERIPHERAL IV DATA: Not applicable SIGNED BY: RT Baltazar Cela(R) July 01, 2024 10:58 AM [facility] ANES POSTPROC EVALon 025 ANES POSTPROC EVAL HNO ID: [id number] Author: DANA HOWE MD Service: Anesthesiology Author Type: Anesthesiologist Type: Anesthesia Postprocedure Evaluation Filed: 07/01/2024 12:06 Note Text: POST ANESTHESIA EVALUATION NOTE : 1975 Procedure Summary Date: 07/01/24 Room / Location: [place] [address] / OR Anesthesia Start: 0756 Anesthesia Stop: 1025 Procedure: ARTHROPLASTY REPLACE JOINT TOTAL HIP (Right: Hip) Diagnosis: Primary osteoarthritis of right hip (Primary osteoarthritis of right hip [M16.11]) Surgeons: Lois Mckeon MD Responsible Provider: Dana Howe MD Anesthesia Type: spinal ASA Status: 3 Anesthesia Type: spinal Last Vitals Vitals Value Taken Time BP 98/70 07/01/24 1135 Temp 36 ?C (96.8 ?F) 07/01/24 1100 HR SpO2 84 07/01/24 1107 Resp 16 07/01/24 1100 SpO2 99 % 07/01/24 1135 Vitals shown include unfiled device data. Post Anesthesia Patient Status Patient Evaluation: PACU. PACU/ICU Patient Condition: stable. Anticipated Disposition: inpatient floor planned admission. Neurological Status: aware and responsive. Pulmonary Status: breathing comfortably on room air Airway Control: returned to baseline unsupported. Cardiovascular Status: stable. Pain Management: clinically adequate - multimodal analgesia pain management approach Postoperative Hydration: acceptable. Intraoperative Events: no significant anesthesia events Post Operative Nausea/Vomiting Status: no significant post operative nausea or vomiting Recommendation: continue current plan of care. Anesthesia Observations No Documentation SIGNATURE: Dana Howe MD PATIENT NAME: Stacey Sahu DATE: July 01, 2024 TIME: 12:06 PM CSN: [id number] [facility] ANES PRE-OPon 07-01-2024 ANES PRE-OP HNO ID: [id number] Author: DANA HOWE MD Service: Anesthesiology Author Type: Anesthesiologist Type: Anesthesia Preprocedure Evaluation Filed: 07/01/2024 07:31 Note Text: ANESTHESIOLOGY DAY OF SURGERY NOTE : 1975 Procedure Information Date/Time: 07/01/24 0900 Procedure: ARTHROPLASTY REPLACE JOINT TOTAL HIP (Right: Hip) Location: OR / OR Surgeons: Lois Mckeon MD Estimated body mass index is 37.72 kg/m? as calculated from the following: Height as of 06/05/24: 152.4 cm (5'). Weight as of 06/05/24: 87.6 kg (193 lb 2 oz). Most recent hematocrit and potassium results: Hematocrit 44.2 06/05/2024 Potassium 4.9 06/05/2024 Relevant Problems ANESTHESIA (+) NIRMALA (obstructive sleep apnea) CARDIO (+) Pulmonary HTN (HCC) GI (+) GERD (gastroesophageal reflux disease) PULMONARY (+) NIRMALA (obstructive sleep apnea) Other (+) BMI 37.0-37.9, adult I - PHYSICAL EVALUATION AIRWAY Patient intubated: No. Tracheostomy tube not present Mallampati: II. TM distance: >3 FB. Neck ROM: full. Mouth opening: adequate. Short neck: no. Thick neck: yes DENTAL Normal dental observations. Dental findings: teeth intact. Additional exam findings: yes. CARDIOVASCULAR Normal cardiovascular observations. Rhythm: regular Rate: normal PULMONARY Normal pulmonary observations. Breath sounds clear to auscultation. II - ANESTHESIA PLAN ASA Score: 3 Anesthetic Plan: spinal The patient is not a current smoker. NPO Status: adequate Beta Roderick Monitoring Plan Monitoring plan: Standard ASA. Post Procedure Analgesic Plan Postoperative analgesic plan: multimodal analgesia. Informed Consent Anesthetic risks, benefits, alternatives, personnel and consent discussed: yes. Patient / Responsible Democrat agrees to proceed: yes Patient / Surrogate agrees to blood products: Yes Significant changes in the patient condition since the History and Physical, not otherwise documented in primary service progress note: no. Potential Anesthesia issues that may suggest increased risk of complications or contraindication to planned procedure: none. Vitals Value Taken Time BP 149/76 07/01/24 0710 Pulse 77 07/01/24 0710 Resp 16 07/01/24 0710 Temp 36.6 ?C (97.9 ?F) 07/01/24 0710 SpO2 98 % 07/01/24 0710 Facility-Administer ed Medications as of 07/01/2024 Medication Dose Route Frequency lidocaine (PF) 10 mg/mL (1 %) 1-2 mg injection (XYLOCAINE) 0.1-0.2 mL INTRADERMAL PRN NaCl 0.9% iv flush bag 20 mL INTRAVENOUS PRN ceFAZolin iv piggyback 2 g in D5W (iso-osmotic) 100 mL (ANCEF) 2 g INTRAVENOUS ONCE tranexamic acid (CYKLOKAPRON) in NaCl 0.7% 1,000 mg 100 mL 1,000 mg INTRAVENOUS ONCE [COMPLETED] tranexamic acid (CYKLOKAPRON) in NaCl 0.7% 1,000 mg 100 mL 1,000 mg INTRAVENOUS ONCE [COMPLETED] celecoxib 200 mg cap(s) (CeleBREX) 200 mg ORAL ONCE [COMPLETED] acetaminophen 1,000 mg tab(s) (TYLENOL) 1,000 mg ORAL ONCE promethazine 12.5 mg tab(s) (PHENERGAN) 12.5 mg ORAL Pre-Op Once lactated ringers iv infusion 30 mL/hr INTRAVENOUS CONTINUOUS Outpatient Medications as of 07/01/2024 Medication Sig acetaminophen (TYLENOL) 325 mg tablet Take 2 tablets by mouth every 6 hours as needed. acetaminophen (TYLENOL EXTRA STRENGTH) 500 mg tablet Take 2 tablets by mouth every 8 hours as needed for pain for up to [address] (PROTONIX) 20 mg tablet Take 1 tablet by mouth once daily for 14 days. meloxicam (MOBIC) 15 mg tablet Take 1 tablet by mouth once daily for 14 days. docusate sodium (COLACE) 100 mg capsule Take 1 capsule by mouth two times a day. Take colace while taking narcotics to decrease your risk of constipation oxyCODONE IR (ROXICODONE) 5 mg immediate release tablet Take 1-2 tablets by mouth every 4 hours as needed for pain for up to 7 days. for pain. aspirin, enteric coated (ECOTRIN LOW STRENGTH) 81 mg EC tablet Take 1 tablet by mouth two times a day for 28 days. naloxone 4 mg/actuation nasal spray (NARCAN) Use 1 spray in one nostril as needed for overdose. May repeat every 2 to 3 min in alternating nostrils until medical assistance is available meloxicam (MOBIC) 15 mg tablet Take 15 mg by mouth once daily. Omeprazole 40 mg capsule Take 40 mg by mouth once daily. I have interviewed and examined the patient. I have reviewed the medical record and/or the pre-anesthesia evaluation, pertinent labs, and test results. This contains updated information obtained within 48 hours of Surgery/Procedure. SIGNATURE: Dana Howe MD PATIENT NAME: Stacey Sahu DATE: July 01, 2024 TIME: 7:27 AM CSN: [id number] [facility] BRIEF OP NOTon 07-01-2024 BRIEF OP NOT HNO ID: [id number] Author: MONIK CONSTANTINO MD Service: Orthopaedic Surgery Author Type: Resident Type: Brief Op Note Filed: 07/01/2024 09:54 Note Text: BRIEF OP NOTE LOG ID: [id number] Surgery/Procedure Date: 07/01/2024 Incision/Procedure Start Time: 8:43 AM Incision Close/Procedure End Time: Surgeon(s)/Procedur alist(s) and Card Boxer(s): Surgeons and Role: * Lois Mckeon MD - Primary * Monik Constantino MD - Resident - Assisting Procedure(s): Procedure(s) (LRB): ARTHROPLASTY REPLACE JOINT TOTAL HIP (Right) Anesthesia: Spinal Estimated Blood Loss: 150 mls Specimens: * No specimens in log * Complications: None Pre-Op/Pre-Procedur e Diagnosis: R hip OA Post-Op/Post-Proced ure Diagnosis: Same Pre-operatively, a complete plan of care visit was completed: Plan of care discussed with: Provider, RN, Patient. Implants: * No implants in log * Patient was accompanied to the next level of care by a licensed practitioner from the surgical team pending completion of this brief op note (or operative note) SIGNATURE: Monik Constantino MD PATIENT NAME: Stacey Sahu DATE: July 01, 2024 TIME: 9:54 AM PAGER/CONTACT #: [phone] [facility] CASE MGT INIT ASSESon 2024 CASE MGT INIT MCKENZIE HNO ID: [id number] Author: ALISIA GILMORE RN Service: ? Author Type: Registered Nurse Type: Care Mgt Initial Assessment Filed: 07/01/2024 13:31 Note Text: CARE MANAGEMENT: ASSESSMENT AND DISCHARGE PLAN SERVICE DATE: July 01, 2024 SERVICE TIME: 1:29 pm PCP: Essie Ryan CNP, CERAMIC MOLD DESIGNER Primary Contact: Extended Emergency Contact Information Primary Emergency Contact: Sruthi Sahu [address]: [address] [place] [address] Relation: Spouse Admission Status: Extended Recovery Insurance Provider: [facility] [employer] MEDICAID OF [place] Discharge Planning requested by: Per Department Practice Potential Transition Plans Home;Home Care Advance Directives Current Advance Directive: None Savings Counselor Attempted to Assist with AD Completion: Yes Action: Education Provided Current Living Arrangements and Support Lives with: Spouse/significant other Type of Residence: Private Residence (House) Support: Spouse/significant other How do you manage to accomplish the following: Independent: Ambulation;Bathe/Sh ower;Dress;Meals/Me al Prep;Going to the bathroom;Medication Management;Transpor tation to appointments/commun ity Current Services/Equipment Current Post-Acute Service(s): DME Current DME Type: Walker Discharge Planning Patient Goal(s): General wellness, Be able to go home [place] Choice Explained: [place] of [place] Given: Yes Level of Care Discussed: Home Care Are you interested in bedside delivery of your medications? Yes Discharge Planning Participant(s): Patient;Spouse/sign ificant other Needs Prior to Discharge: Needs Prior to Discharge: To Be Determined;Discharg e Prescriptions Post-Acute Discharge Plan: Procedure(s): Procedure(s) (LRB): ARTHROPLASTY REPLACE JOINT TOTAL HIP (Right) This RNCM met with the patient at the bedside to complete this assessment. The patient lives with her . The patient is independent in his/her ADLs and IADLs, and drives. The patient stated her will be providing transport at discharge. DME: walker. The patient states he/she feel safe at home and denies safety, financial, and social concerns at this time.The patient denied any additional needs at this time. CM to remain available. PCP: Pharmacy: DME: None Community Services: None Anticipated Needs: Home with No Needs A member of the care management team will follow and remain available for the patient's needs. SIGNATURE: Alisia Gilmore RN PATIENT NAME: Stacey Sahu DATE: July 01, 2024 TIME: 1:29 PM [facility] CONSULTon 07-01-2024 CONSULT HNO ID: [id number] Author: REGINE MTZ MD Service: General Internal Medicine Author Type: Physician Type: Consults Filed: 07/01/2024 14:04 Note Text: INTERNAL MEDICINE CONSULT HISTORY AND PHYSICAL PLEASE DO NOT REMOVE FROM THE CHART OR MODIFY PRINTED COPY Patient Name: Stacey Sahu PRIMARY CARE PHYSICIAN: Essie Ryan, CERAMIC MOLD DESIGNER, CERAMIC MOLD DESIGNER CONSULTING PHYSICIAN: Lois Mckeon MD MD DATE of CONSULT: 2:01 PM HPI: This is a 49 year old female who presents with ARTHROPLASTY REPLACE JOINT TOTAL HIP (Right pt seen denied cp/ sob no weakness . No urgency PAST MEDICAL HISTORY: PAST MEDICAL HISTORY Diagnosis Date Abnormal uterine bleeding s/p hysterectomy Bipolar disorder (HCC) Crohn's disease of intestine (HCC) s/p surgery 1999's GERD (gastroesophageal reflux disease) Obese NIRMALA (obstructive sleep apnea) Pulmonary HTN (HCC) resolved 2016 PAST SURGICAL HISTORY: PAST SURGICAL HISTORY Procedure Laterality Date COLONOSCOPY ENDOMETRIAL ABLTJ THERMAL W/O HYSTEROSCOPIC GUID 2012 HYSTERECTOMY 2017 LAPAROSCOPY COLECTOMY PARTIAL W/ANASTOMOSIS 2002 Ileocecectomy for Crohn's LAPAROSCOPY DIAGNOSTIC 06/2016 MIDLINE INSERTION/CONSULT 12/14/2020 THYROIDECTOMY TOTAL ABDOM HYSTERECTOMY ovaries intact TUBAL LIGATION HX 2002 FAMILY HISTORY: FAMILY HISTORY Problem Relation Age of Onset [...] Topics Alcohol use: No Drug use: No ALLERGIES: ALLERGIES Allergen Reactions Penicillins Unknown PRIOR TO ADMISSION MEDICATIONS: acetaminophen (TYLENOL) 325 mg tablet, Take 2 tablets by mouth every 6 hours as needed., Disp: 40 tablet, Rfl: 0, 06/30/2024 at 1400 meloxicam (MOBIC) 15 mg tablet, Take 15 mg by mouth once daily., Disp: , Rfl: , 06/22/2024 ARIPiprazole (ABILIFY) 30 mg tablet, Take 1 tablet by mouth once daily., Disp: , Rfl: , 06/28/2024 Omeprazole 40 mg capsule, Take 40 mg by mouth once daily., Disp: , Rfl: , 06/29/2024 REVIEW OF SYSTEMS: GENERAL: No weight loss, malaise or fevers HEENT: Negative for frequent or significant headaches, No changes in hearing or vision, no nose bleeds or other nasal problems NECK: Negative for lumps, goiter, pain and significant neck swelling RESPIRATORY: Negative for cough, hemoptysis, wheezing, COPD, dyspnea or shortness of breath CARDIOVASCULAR: Negative for chest pain, leg swelling, hypertension, CHF or palpitations GI: No nausea, vomiting, or diarrhea MUSCULOSKELETAL: Negative for joint pain or swelling, back pain or muscle pain SKIN: Negative for lesions, rash, and itching HEMATOLOGY/LYMPHOLO GY: Negative for prolonged bleeding, bruising easily or swollen nodes ENDOCRINE: Negative for cold or heat intolerance, polyuria, polydipsia and goiter NEURO: No history of headaches, syncope, paralysis, seizures or tremors All other reviewed and negative other than HPI. PHYSICAL EXAM: Blood pressure 98/70, pulse 83, temperature (!) 35.9 ?C (96.6 ?F), temperature source Tympanic, resp. rate 16, height 149.9 cm (4' 11 ), weight 88.5 kg (195 lb), SpO2 99%. General appearance: well appearing, alert, in no acute distress, and well-hydrated, well nourished Skin: Skin color, texture, turgor normal, no suspicious rashes or lesions Head: normal Eyes: Anicteric sclera. Pupils are equally round and reactive to light. Extraocular movements are intact. Ears: external ears normal, canals clear, TM's normal Nose/Sinuses: Negative Oropharynx: Lips, mucosa, and tongue normal, teeth and gums normal, oropharynx normal Neck: Supple, no adenopathy; thyroid symmetric, normal size, no bruits Back: no pain to palpation over spine or costovertebral angles, reflexes are 2+ and symmetric, motor and sensory appear to be normal Lungs: clear to auscultation no wheezing or rhonchi Heart: RRR without murmur, gallop, or rubs. No ectopy Abdomen: Normal abdominal exam, Abdomen soft, non-tender. Bowel sounds normal. No masses, organomegaly Extremities: Extremities normal. No deformities, edema, or skin discoloration. Good capillary refill. Peripheral pulses: Normal Neuro: Gait normal. Reflexes normal and symmetric. Sensation grossly intact. DATA: Radiology: Imaging reviewed and discussed with the patient. IN-PATIENT MEDICATIONS: Current Facility-Administer ed Medications Medication Dose Route Frequency ARIPiprazole 30 mg tab(s) (ABILIFY) 30 mg ORAL DAILY ceFAZolin iv piggyback 2 g in D5W (iso-osmotic) 100 mL (ANCEF) 2 g INTRAVENOUS q 8 HR [START ON 07/02/2024] aspirin, enteric coated 81 mg tab(s) 81 mg ORAL BID NaCl 0.9% iv flush bag 20 (more content not included)... [facility] NURSING PROGon 07-01-2024 NURSING PROG HNO ID: [id number] Author: HODAN NICOLAS RN Service: Nursing Author Type: Registered Nurse Type: Nursing Progress Note Filed: 07/01/2024 15:53 Note Text: Discharge education completed with patient and spouse. All questions answered at this time. Pt left unit via wheelchair with transport staff. [facility] OPERATIVE NOon 07-01-2024 OPERATIVE NO HNO ID: [id number] Author: LOIS MCKEON MD Service: Orthopaedic Surgery Author Type: Physician Type: Operative Report Filed: 07/01/2024 10:57 Note Text: OPERATIVE/PROCEDURE REPORT LOG ID: [id number] Surgery/Procedure Date: 07/01/2024 Incision/Procedure Start Time: 8:43 AM Incision Close/Procedure End Time: 10:11 AM Surgeon(s)/Procedvinicio garcia(s) and Card Boxer(s): Surgeons and Role: * Lois Mckeon MD - Primary * Monik Constantino MD - Resident - Assisting Asst Lizbeth Alcantar CNP Anesthesia: Spinal Preop Diagnosis: Pre-Op Diagnosis Codes: * Primary osteoarthritis of right hip [M16.11] Postop Diagnosis: Pre-Op Diagnosis Codes: * Primary osteoarthritis of right hip [M16.11] Procedure(s): Procedure(s) (LRB): ARTHROPLASTY REPLACE JOINT TOTAL HIP (Right) Implants: Implant Name Type Inv. Item Serial No. Negative Stripper Lot No. LRB No. Used Action PIN STEINMANN 3/16IN STAINLESS STEEL 9IN FIXATION TROCAR POINT ONE END - [id number] Pin PIN STEINMANN 3/16IN STAINLESS STEEL 9IN FIXATION TROCAR POINT ONE END BRASSELER [id number] Right 1 Non-Implant INSERT ACETABULAR 32MM 0D D HIP X3 TRIDENT STERILE LATEX FREE - [id number] Joint - Hip INSERT ACETABULAR 32MM 0D D HIP X3 TRIDENT STERILE LATEX FREE AYDEE [id number] Right 1 Implanted SHELL TRIDENT II 48MM D TRITANIUM ACETABULAR 3 SCREW HOLE CLUSTER STERILE - [id number] Joint - Hip SHELL TRIDENT II 48MM D TRITANIUM ACETABULAR 3 SCREW HOLE CLUSTER STERILE STRY-[facility] [id number] Right 1 Implanted SCREW TRIDENT II 6.5MM 30MM BONE LOW PROFILE HEXAGONAL STERILE - [id number] Screw SCREW TRIDENT II 6.5MM 30MM BONE LOW PROFILE HEXAGONAL STERILE [facility] [id number] Right 1 Implanted STEM FEMORAL 8X99MM SIZE 2 HIGH INSIGNIA COLLARED - [id number] Joint - Hip STEM FEMORAL 8X99MM SIZE 2 HIGH INSIGNIA COLLARED AYDEE [id number] Right 1 Implanted HEAD V40 32MM -4MM OFFSET TAPER BIOLOX DELTA FEMORAL HIP - [id number] Joint - Hip HEAD V40 32MM -4MM OFFSET TAPER BIOLOX DELTA FEMORAL HIP STRY-[facility] [id number] Right 1 Implanted Problem List: ACTIVE PROBLEM LIST (spontaneous vaginal delivery) x 4 Crohn's disease without complication (HCC) [id number] Pulmonary Htn (Hcc) Obese Nirmala (Obstructive Sleep Apnea) Gerd (Gastroesophageal Reflux Disease) Crohn's Disease of Intestine (Hcc) Enterolith of Small Intestine (Hcc) Bipolar Disease, Chronic (Hcc) Other Hyperlipidemia Bmi 37.0-37.9, Adult Findings: Complete eburnation of femoral head and periacetabular osteophytes Specimens: Femoral head OPERATIVE INDICATIONS: This patient was seen in the office and found to have intractable right hip pain with imaging showing significant joint space narrowing. They exhausted non-operative management with a combination of meds, activity modification, and home exercise program. These were no longer providing the relief they desired. The risks, benefits and alternatives to that were discussed at length with the patient. A shared decision was made. Complications discussed included but were not limited to leg length discrepancy, dislocation, fracture, infection, blood clots, and medical complications. PROCEDURE: The patient was taken to the operating room and after satisfactory spinal anesthesia she was placed in the lateral position with therighthip superior. Herright hip and lower extremity were prepped and draped in the usual sterile fashion. A 6-inch incision was made over the trochanter, curving posteriorly. Dissection was carried down to the tensor fascia carlos, which was incised in line with the incision. A Charnley retractor was placed in the wound. Sciatic nerve was identified and protected. The piriformis was incised off the back of the trochanter and again was tagged. The capsule was opened posteriorly and the hip was dislocated. The femoral neck was cut 1 fingerbreadth proximal to the lesser trochanter and retractors were placed around the acetabulum. The capsulectomy was completed. Reaming was begun with a 38 millimeter reamer and carried up to a 48 mm reamer, and a 48 mm trident II cup was impacted in 45 degrees of abduction and 20 degrees of anteversion. One 6.5mm screw was placed. The cup was stable and a liner was impacted, 32 millimeters. Attention was then turned to the canal, which was opened with a box osteotome and a T-handled reamer. Broaching was begun with a size 0 and carried up to a size 2 insignia stem. Trial reduction was carried out with a 32, -4 mm head. The hip was stable as it was taken through a full range of motion. X-ray was obtained intraoperatively to show satisfactory positioning of the components. The final size 32 head was impacted on the Potter taper. Again, the hip was reduced. The wound was copiously irrigated with antibiotic solution. Closure was begun. The piriformis was repaired through drill holes in the back of the trochanter. The tensor fascia was repaired with 0 suture. Subcutaneous ti (more content not included)... Normal [facility] THERAPY NTon 07-01-2024 THERAPY NT HNO ID: [id number] Author: YUMIKO MARAVILLA OT/L Service: Occupational Therapy Author Type: Occupational Therapist Type: Therapy (PT/OT/Speech/Resp) Filed: 07/01/2024 14:14 Note Text: Occupational Therapy Evaluation Summary SERVICE DATE: 07/01/2024 SERVICE TIME: 1350 to 1405 ROOM: [place] [address] OT 6 Clicks Score: 22 Total Joint Replacement Discharge Readiness: Cleared from Occupational Therapy DISCHARGE RECOMMENDATIONS Home OT Anticipated Discharge Needs: Physical Assist at Home Physical Assist at Home for: Cleaning, Meals, Laundry, Transportation, Shopping, Safety ASSESSMENT Response to Therapy Interventions: Good Participation in Activities, Requires Additional Time to Complete Activities PRECAUTIONS Weight Bearing Restrictions, Posterior Hip Precautions Right Lower Extremity Weight Bearing Status: WBAT CURRENT HOSPITAL COURSE s/p R THR Relevant Past Medical History: Crohn's, pulmonary HTN, obese, NIRMALA, GERD, bipolar HOME LIVING Patient Lives With: Family (Sruthi and daughter) Assistance Available: 24-Hour Entry To Home: Stairs, With Rail Number Of Stairs Into Home: 4 Number Of Stairs To Bed/Bath: 10 Stairs to Bed/Bath with: Unilateral Rail Tub/Shower Type: Walk in shower Laundry: First floor - family will assist Equipment Owned: Walker- Wheeled, Commode- Raised, Grab Bars- Toilet, Grab Bars- Shower, Shower Chair PRIOR FUNCTIONAL LEVEL Within Functional Limits I with ADLs/IADLs, no AD for ambulation, drives SUBJECTIVE Patient agreeable to OT THERAPY DIAGNOSIS Reduced mobility-other, Decreased activities of daily living (ADL) TREATMENT INTERVENTIONS Evaluation Skilled Treatment Time (minutes): 15 TRAINING AND EDUCATION PROVIDED Activity Adaptation/Compensa tory Strategies, Adaptive Equipment/DME, Assistive Device Use, Bed Mobility, Benefits of In-Hospital Mobility, Discharge Planning, Expected Functional Level, Functional Mobility Involving ADLs, Home Set-up/Modification s, Lower Extremity Bathing, Lower Extremity Dressing, Positioning, Precautions/Restric tions, Role of Occupational Therapy, Standing Balance to Improve Strunk with ADLs/Self-Care, Transfer - Car, Toileting , Transfer - Sit to Stand, Upper Extremity Dressing, Upper Extremity Bathing THERAPEUTIC SKILLS USED Activity Dosing, Cues for Sequencing/Proper Technique for Activity, Cuing Verbal, Physical Assist, Teach-Back for Education FUNCTIONAL STATUS Activities of Daily Living Assist Level Additional Information Feeding Set Up Grooming Set Up Bathing Upper Body Set Up Bathing Lower Body Minimal Assistance Dressing Upper Body Set Up Dressing Lower Body Minimal Assistance, Additional Information with use of auto repair technician, family plans to assist with socks Toileting Stand By Assistance Mobility Assist Level Additional Information Bed Mobility Sit to Stand Additional Information, Stand By Assistance Instructed on proper hand placement and walker management Stand to Sit Additional Information, Stand By Assistance Instructed on proper hand placement Bed to Chair Toilet/Commode Shower Functional Mobility GOALS Patient will demonstrate progress with self-care, cognitive and/or coping needs identified to allow safe discharge to home with available support and/or physical assistance. Progress Toward Goals: Progressing as expected Rehab Potential: Good PLAN OT Frequency: PRN (As Needed) Treatment Interventions: Education, Self Care/Home Management, Functional Mobility Training SIGNATURE: Yumiko Maravilla OT/L PATIENT NAME: Stacey Sahu DATE: July 01, 2024 TIME: 2:14 PM [facility] THERAPY NT HNO ID: [id number] Author: ANIYA SHAH, PT Service: Physical Therapy Author Type: Physical Therapist Type: Therapy (PT/OT/Speech/Resp) Filed: 07/01/2024 13:52 Note Text: Physical Therapy Evaluation Summary SERVICE DATE: 07/01/2024 SERVICE TIME: 1307 to 1346 ROOM: [place] [address] PT 6 Clicks Score: 22 Total Joint Replacement Discharge Readiness: Cleared from Physical Therapy DISCHARGE RECOMMENDATIONS Home PT Recommended Discharge Equipment: Cane ASSESSMENT Response to Therapy Interventions: Good Participation in Activities, On-Track to Achieve Discharge Goals, Pain PRECAUTIONS Weight Bearing Restrictions, Posterior Hip Precautions, Lines/Tubes/Drains Right Lower Extremity Weight Bearing Status: WBAT CURRENT HOSPITAL COURSE 49 yo female admitted with OA R hip, s/p R THR Relevant Past Medical History: Crohn's, pulmonary HTN, obese, NIRMALA, GERD, bipolar HOME LIVING Patient Lives With: Family (Sruthi and daughter) Assistance Available: 24-Hour Entry To Home: Stairs, With Rail Number Of Stairs Into Home: 4 Number Of Stairs To Bed/Bath: 10 Stairs to Bed/Bath with: Unilateral Rail Tub/Shower Type: Walk in shower Laundry: First floor - family will assist Equipment Owned: Walker- Wheeled, Commode- Raised, Grab Bars- Toilet, Grab Bars- Shower, Shower Chair PRIOR FUNCTIONAL LEVEL Within Functional Limits I with ADLs/IADLs, no AD for ambulation, drives SUBJECTIVE Patient in agreement with the plan for discharge home today. THERAPY DIAGNOSIS Reduced mobility-other, Unsteadiness on feet TREATMENT INTERVENTIONS Evaluation, Therapeutic Exercise (48451), Gait Training (56747) Timed Code Treatment (minutes): 24 Skilled Treatment Time (minutes): 39 TRAINING AND EDUCATION PROVIDED Anatomy and Impact on Deficits, Assistive Device Use, Bed Mobility, Discharge Planning, Disease Specific Education, Edema Management, Equipment, Exercise Program, Expected Functional Level, Gait Pattern, Reduction of Deviations, Handout Issued, Positioning, Precautions/Restric tions, Role of Physical Therapy, Stair Navigation, Transfers THERAPEUTIC SKILLS USED Activity Dosing, Cues for Sequencing/Proper Technique for Activity, Cuing Verbal, Family Training, Physical Assist, Teach-Back for Education, Task Analysis Learning FUNCTIONAL STATUS Bed Mobility Supine To Sit: Stand By Assistance Scooting: Stand By Assistance Transfers Sit To Stand: Stand By Assistance, Additional Information vc for safe hand placement Stand To Sit: Stand By Assistance, Additional Information vc for safe hand placement Bed to Chair Gait Stand By Assistance Gait Device: Wheeled Walker General Deviations/Observat ions: Antalgic gait, Gayle decreased (R LE abducted throughout gait cycle) Gait Distance (feet): 300' Gait Deviations Right Lower Extremity: Stance time decreased, Weight bearing decreased Gait Deviations Left Lower Extremity: Step length decreased Stairs Minimal Assistance, Additional Information Stairs Device: Rail, Hand Held Assist Number of Stairs: 3 Patient does not have a cane. Used ENGINEER SYSTEM ADMINISTRATOR to simulate cane GOALS Patient will demonstrate progress with functional mobility to allow safe discharge to home with available support and/or physical assistance. Rehab Potential: Good Progress Toward Goals: Progressing as expected PLAN PT Frequency: Once Daily Treatment Interventions: Education, Joint Mobility, Strengthening, Functional Mobility Training Plan for Next Visit: Bed Mobility, Edema Management, Gait Training, Exercise Instruction/Handout , Sit to Stand Transfers, Stair Training, Walker Training SIGNATURE: Aniya Shah, PT PATIENT NAME: Stacey Sahu DATE: July 01, 2024 TIME: 1:51 PM [facility] XR PELVIS 1V APon 07-01-2024 XR PELVIS 1V AP * * *Final Report* * * DATE OF EXAM: Jul 01 2024 10:59AM LUX 5239 - XR PELVIS 1V AP / PROCEDURE REASON: Post-operative / post-procedure assessment * * * * Physician Interpretation * * * * History: Postoperative imaging FINDINGS/ IMPRESSION: Postoperative AP view of the right hip demonstrates an placed total right hip arthroplasty, hardware intact and alignment satisfactory. Overlying soft tissue air is consistent with the recent surgery. Please see detailed operative report. Referral Clerk: AGAPITO Transcribe Date/Time: Jul 01 2024 11:05A Dictated by : CHELY YU MD This examination was interpreted and the report reviewed and electronically signed by: CHELY YU MD on Jul 01 2024 11:05AM EST [id number] X[facility] PELVIS 1V AP * * *Final Report* * * DATE OF EXAM: Jul 01 2024 9:37AM BEBE 5239 - XR PELVIS 1V AP / PROCEDURE REASON: Primary osteoarthritis of right hip * * * * Physician Interpretation * * * * EXAMINATION: XR PELVIS 1V AP CLINICAL INFORMATION: 49 years old Female with Primary osteoarthritis of right hip COMPARISON: Radiographs 03/19/2024 RESULT: Single frontal intraoperative image of the pelvis demonstrates RIGHT total hip arthroplasty in progress. IMPRESSION: Intraoperative examination for surgical planning and documentation. Referral Clerk: AGAPITO Transcribe Date/Time: Jul 01 2024 11:01A Dictated by : RADHA CARVAJAL DO This examination was interpreted and the report reviewed and electronically signed by: RADHA CARVAJAL DO on Jul 01 2024 11:02AM EST [id number] URINE CULTURE, ROUTINEon Bacteria identified Cx Nom (U) Urine Culture, Routine [facility] Bacteria identified Cx Nom (U) Mixed urogenital guillermina [facility] Bacteria identified Cx Nom (U) 10,000-25,000 colony forming units per mL [facility] Bacteria identified Cx Nom (U) Performed at: [facility] Bacteria identified Cx Nom (U) [address] [place], [place] [id number] [facility] Bacteria identified Cx Nom (U) Mountain Bike Guide: Avni Schmid PhD, Phone: [phone] [facility] Healthcar e Basic metabolic 2000 panelon 06-05-2024 Anion gap [Moles/Vol] 11 mmol/L Normal 8-15 [facility] Comment on above: Order Comment: Speci men Type: BLOOD SPECIMENOrdering Facility: [facility] Address: [address] [place] [address] Performed By: #### 5 0190-8, 21749-0, 2276-4 ####[facility] [id number] [place] [address] [place] Calcium [Mass/Vol] 9.6 mg/dL Normal 8.5-10.2 [facility] Comment on above: Order Comment: Speci men Type: BLOOD SPECIMENOrdering Facility: [facility] Address: [address] [place] [address] Performed By: #### 5 0190-8, 07712-2, 2275- ####[facility] [id number] [place] [address] [place] Chloride [Moles/Vol] 104 mmol/L Normal 98-107 [facility] Comment on above: Order Comment: Speci men Type: BLOOD SPECIMENOrdering Facility: [facility] Address: [address] [place] [address] Performed By: #### 5 0190-8, 11369-3, 2275-09 ####[facility] [id number] [place] [address] [place] CO2 [Moles/Vol] 25 mmol/L Normal 22-30 [facility] Comment on above: Order Comment: Speci men Type: BLOOD SPECIMENOrdering Facility: [facility] Address: [address] [place] [address] Performed By: #### 5 0190-8, 70010-6, 2275-09 ####[facility] [id number] [place] [address] [place] Creatinine [Mass/Vol] 0.70 mg/dL Normal 0.58-0.96 [facility] Comment on above: Order Comment: Speci men Type: BLOOD SPECIMENOrdering Facility: [facility] Address: [address] [place] [address] Performed By: #### 5 0190-8, 03968-6, 2275-4 ####[facility] [id number] [place] [address] [place] Creatinine and Glomerular filtration rate.predicted panel (S/P/Bld) 108 mL/min/1.73m??? Normal >=60 [facility] Comment on above: Order Comment: Cindy lin Type: BLOOD SPECIMENOrdering Facility: [facility] Address: [address] [place] [address] Result Comment: Etta mated Glomerular Filtration Rate [...] actual GFR. Performed By: #### 5 0190-8, 75629-6, 2275-4 ####[facility] [id number] [place] [address] [place] Glucose [Mass/Vol] 88 mg/dL Normal 74-99 [facility] Comment on above: Order Comment: Cindy lin Type: BLOOD SPECIMENOrdering Facility: [facility] Address: [address] [place] [address] Result Comment: The [place] Diabetes Association (ADA) provides guidance for cutoff [...] Standards of Medical Care in Diabetes 2016, [employer] Diabetes Association. Diabetes Care. 2016.39(Suppl 1). Performed By: #### 5 0190-8, 57221-0, 6-4 ####[facility] [id number] [place] [id number] [place] Potassium [Moles/Vol] 4.9 mmol/L Normal 3.7-5.1 [facility] Comment on above: Order Comment: Speci men Type: BLOOD SPECIMENOrdering Facility: [facility] Address: [address] [place] [address] Performed By: #### 5 0190-8, 71872-5, 6-4 ####[facility] [id number] [place] [address] [place] Sodium [Moles/Vol] 140 mmol/L Normal 136-144 [facility] Comment on above: Order Comment: Speci men Type: BLOOD SPECIMENOrdering Facility: [facility] Address: [address] [place] [address] Performed By: #### 5 0190-8, 42045-6, 6-4 ####[facility] [id number] [place] [address] [place] Urea nitrogen [Mass/Vol] 17 mg/dL Normal 7-21 [facility] Comment on above: Order Comment: Speci men Type: BLOOD SPECIMENOrdering Facility: [facility] Address: [address] [place] [address] Performed By: #### 5 0190-8, 75856-9, 2275-4 ####[facility] [id number] [place] [address] [place] CBC W Auto Differential pane l (Bld)on 06-05-2024 Basophils (Bld) [#/Vol] 0.10 10*3/uL Normal <0.11 [facility] Comment on above: Order Comment: Speci men Type: BLOOD SPECIMEN [facility]ing Facility: [facility] Address: [address] [place] [address] Performed By: #### 5 7021-8 #### [facility] CLIA [id number] [address] [place] [address] [place] Basophils/100 WBC (Bld) 1.2 % Normal [facility] Comment on above: Order Comment: Speci men Type: BLOOD SPECIMEN [facility]ing Facility: [facility] Address: [address] [place] [address] Performed By: #### 5 7021-8 #### [facility] CLIA [id number] [address] [place] [address] [place] Differential cell count method Nom (Bld) Auto [facility] Comment on above: Order Comment: Speci men Type: BLOOD SPECIMEN Ordering Facility: [facility] Address: [address] [place] [address] Performed By: #### 5 7021-8 #### [facility] CLIA [id number] [address] [place] [address] [place] Eosinophils (Bld) [#/Vol] 0.52 10*3/uL High <0.46 [facility] Comment on above: Order Comment: Speci men Type: BLOOD SPECIMEN Ordering Facility: [facility] Address: [address] [place] [address] Performed By: #### 5 7021-8 #### [facility] CLIA [id number] [address] [place] [address] [place] Eosinophils/100 WBC (Bld) 6.0 % [facility] Comment on above: Order Comment: Speci men Type: BLOOD SPECIMEN Ordering Facility: [facility] Address: [address] [place] [address] Performed By: #### 5 7021-8 #### [facility] CLIA [id number] [address] [place] [address] [place] Erythrocyte distribution width (RBC) [Ratio] 12.5 % Normal 11.5-15.0 [facility] Comment on above: Order Comment: Speci men Type: BLOOD SPECIMEN Ordering Facility: [facility] Address: [address] [place] [address] Performed By: #### 5 7021-8 #### [facility] CLIA [id number] [address] [place] [address] [place] Hematocrit (Bld) [Volume fraction] 44.2 % Normal 36.0-46.0 [facility] Comment on above: Order Comment: Speci men Type: BLOOD SPECIMEN Ordering Facility: [facility] Address: [address] [place] [address] Performed By: #### 5 7021-8 #### [facility] CLIA [id number] [address] [place] [address] [place] Hemoglobin (Bld) [Mass/Vol] 13.8 g/dL Normal 11.5-15.5 [facility] Comment on above: Order Comment: Speci men Type: BLOOD SPECIMEN Ordering Facility: [facility] Address: [address] [place] [address] Performed By: #### 5 7021-8 #### [facility] CLIA [id number] [address] [place] [address] [place] Immature granulocytes (Bld) [#/Vol] 10*3/uL Normal <0.10 [facility] Comment on above: Order Comment: Speci men Type: BLOOD SPECIMEN Ordering Facility: [facility] Address: [address] [place] [address] Performed By: #### 5 7021-8 #### [facility] CLIA [id number] [address] [place] [address] [place] Immature granulocytes/100 WBC (Bld) 0.2 % [facility] Comment on above: Order Comment: Speci men Type: BLOOD SPECIMEN Ordering Facility: [facility] Address: [address] [place] [address] Performed By: #### 5 7021-8 #### [facility] CLIA [id number] [address] [place] [address] [place] Lymphocytes (Bld) [#/Vol] 2.89 10*3/uL Normal 1.00-4.00 [facility] Comment on above: Order Comment: Speci men Type: BLOOD SPECIMEN Ordering Facility: [facility] Address: [address] [place] [address] Performed By: #### 5 7021-8 #### [facility] CLIA [id number] [address] [place] [address] [place] Lymphocytes/100 WBC (Bld) 33.4 % [facility] Comment on above: Order Comment: Speci men Type: BLOOD SPECIMEN Ordering Facility: [facility] Address: [address] [place] [address] Performed By: #### 5 7021-8 #### [facility] CLIA [id number] [address] [place] [address] [place] MCH (RBC) [Entitic mass] 28.6 pg Normal 26.0-34.0 [facility] Comment on above: Order Comment: Speci men Type: BLOOD SPECIMEN Ordering Facility: [facility] Address: [address] [place] [address] Performed By: #### 5 7021-8 #### [facility] CLIA [id number] [address] [place] [address] [place] MCHC (RBC) [Mass/Vol] 31.2 g/dL Normal 30.5-36.0 [facility] Comment on above: Order Comment: Speci men Type: BLOOD SPECIMEN Ordering Facility: [facility] Address: [address] [place] [address] Performed By: #### 5 7021-8 #### [facility] CLIA [id number] [address] [place] [address] [place] MCV (RBC) [Entitic vol] 91.5 fL Normal 80.0-100.0 [facility] Comment on above: Order Comment: Speci men Type: BLOOD SPECIMEN Ordering Facility: [facility] Address: [address] [place] [address] Performed By: #### 5 7021-8 #### [facility] CLIA [id number] [address] [place] [address] [place] Monocytes (Bld) [#/Vol] 0.66 10*3/uL Normal <0.87 [facility] Comment on above: Order Comment: Speci men Type: BLOOD SPECIMEN Ordering Facility: [facility] Address: [address] [place] [address] Performed By: #### 5 7021-8 #### [facility] CLIA [id number] [address] [place] [address] [place] Monocytes/100 WBC (Bld) 7.6 % [facility] Comment on above: Order Comment: Speci men Type: BLOOD SPECIMEN Ordering Facility: [facility] Address: [address] [place] [address] Performed By: #### 5 7021-8 #### [facility] CLIA [id number] [address] [place] [address] [place] Neutrophils (Bld) [#/Vol] 4.45 10*3/uL Normal 1.45-7.50 [facility] Comment on above: Order Comment: Speci men Type: BLOOD SPECIMEN Ordering Facility: [facility] Address: [address] [place] [address] Performed By: #### 5 7021-8 #### [facility] CLIA [id number] [address] [place] [address] [place] Neutrophils/100 WBC (Bld) 51.6 % [facility] Comment on above: Order Comment: Speci men Type: BLOOD SPECIMEN Ordering Facility: [facility] Address: [address] [place] [address] Performed By: #### 5 7021-8 #### [facility] CLIA [id number] [address] [place] [address] [place] Nucleated RBC (Bld) [#/Vol] 10*3/uL Normal <0.01 [facility] Comment on above: Order Comment: Speci men Type: BLOOD SPECIMEN Ordering Facility: [facility] Address: [address] [place] [address] Performed By: #### 5 7021-8 #### [facility] CLIA [id number] [address] [place] [address] [place] Nucleated RBC/100 WBC (Bld) [Ratio] 0.0 /100 WBC [facility] Comment on above: Order Comment: Speci men Type: BLOOD SPECIMEN Ordering Facility: [facility] Address: [address] [place] [address] Performed By: #### 5 7021-8 #### [facility] CLIA [id number] [address] [place] [address] [place] Platelet mean volume (Bld) [Entitic vol] 11.5 fL Normal 9.0-12.7 [facility] Comment on above: Order Comment: Speci men Type: BLOOD SPECIMEN Ordering Facility: [facility] Address: [address] [place] [address] Performed By: #### 5 7021-8 #### [facility] CLIA [id number] [address] [place] [address] [place] Platelets (Bld) [#/Vol] 319 10*3/uL Normal 150-400 [facility] Comment on above: Order Comment: Speci men Type: BLOOD SPECIMEN Ordering Facility: [facility] Address: [address] [place] [address] Performed By: #### 5 7021-8 #### [facility] CLIA [id number] [address] [place] [address] [place] RBC (Bld) [#/Vol] 4.83 10*6/uL Normal 3.90-5.20 [facility] Comment on above: Order Comment: Speci men Type: BLOOD SPECIMEN Ordering Facility: [facility] Address: [address] [place] [address] Performed By: #### 5 7021-8 #### [facility] CLIA [id number] [address] [place] [address] [place] WBC (Bld) [#/Vol] 8.64 10*3/uL Normal 3.70-11.00 [facility] Comment on above: Order Comment: Speci men Type: BLOOD SPECIMEN Ordering Facility: [facility] Address: [address] [place] [address] Performed By: #### 5 7021-8 #### [facility] CLIA [id number] [address] [place] [address] [place] [facility] CBC W AUTO DIFF BLDon Basophils/100 WBC (Bld) 1.2 % [facility] BASOPHILS # BLD AUTO 0.1 [facility] DIFFERENTIAL METHOD BLD Auto [facility] EOSINOPHIL # BLD AUTO 0.52 High [facility] LYMPHOCYTES # BLD AUTO 2.89 [facility] MONOCYTES # BLD AUTO 0.66 [facility] NEUTROPHILS # BLD AUTO 4.45 [facility] NRBC # BLD AUTO <0.01 [facility] NRBC/100 WBC BLD-RTO 0 /100 WBC [facility] PLATELET # BLD AUTO 319 [facility] PMV BLD AUTO 11.5 fL 9.0 - 12.7 fL [facility] WBC # BLD AUTO 8.64 [facility] Eosinophils/100 WBC (Bld) 6 % [facility] Erythrocyte distribution width (RBC) [Ratio] 12.5 % 11.5 - 15.0 % [facility] Hematocrit (Bld) [Volume fraction] 44.2 % 36.0 - 46.0 % [facility] Hemoglobin (Bld) [Mass/Vol] 13.8 g/dL 11.5 - 15.5 g/dL [facility] IMM GRANULOCYTES # BLD AUTO <0.03 [facility] IMM GRANULOCYTES/LEUK NFR BLD AUTO 0.2 % [facility] Interpretation and review of laboratory results Abnormal [facility] Lymphocytes/100 WBC (Bld) 33.4 % [facility] MCH (RBC) [Entitic mass] 28.6 pg 26.0 - 34.0 pg [facility] MCHC (RBC) [Mass/Vol] 31.2 g/dL 30.5 - 36.0 g/dL [facility] MCV (RBC) [Entitic vol] 91.5 fL 80.0 - 100.0 fL [facility] Monocytes/100 WBC (Bld) 7.6 % [facility] Neutrophils/100 WBC (Bld) 51.6 % [facility] RBC (Bld) [#/Vol] 4.83 10*6/uL 3.90 - 5.2 0 m/uL [facility] Specimen Type: BLOOD SPECIMEN Ordering Facility: [facility] Address: [address] [place] [address] Original Ordering Provider: NE[facility]ITA [facility]ELSEN [facility]-2024 ECG COMPLETE Ventricular Rate : 79 BPM Atrial Rate : 79 BPM P-R Interval : 124 ms QRS Duration : 102 ms Q-T Interval : 390 ms QTC Calculation(Bazett) : 447 ms Calculated P [place] : 56 degrees Calculated R [place] : 72 degrees Calculated T [place] : 65 degrees NORMAL SINUS RHYTHM NORMAL ECG Confirmed by PETR LUCIANO MD ([id number]) on 2024 2:12:45 PM NAME : STACEY SAHU PID : [id number] : 1975 Gender : Female Race : ORD : [id number] Procedure Date : Jun 05 2024 10:36:34 Edit Date : 2024 14:15:04 Diagnosis: NORMAL SINUS RHYTHM NORMAL ECG Confirmed by PETR LUCIANO MD ([id number]) on 2024 2:12:45 PM Test Reason : PRE OP Location : 545 : [facility] Overread By : PETR LUCIANO MD Edited By : PETR LUCIANO MD Referred By : LOIS MCKEON Acquired by : Lay CHOW [facility] Ferritin SerPl-mCncon 2023 Ferritin [Mass/Vol] 129.0 ng/mL Normal 14.7-205.1 [facility] Comment on above: Order Comment: Speci men Type: BLOOD SPECIMENOrdering Facility: [facility] Address: [address] [place] [address] Performed By: #### 5 0190-8, 01239-9, 2276-4 ####[facility] [id number] [address] [place] [id number] [address] [place] HISTORY PHYSICALon HISTORY PHYSICAL HNO ID: [id number] Author: NEGRITA TEJEDA APRN.NIURKA Service: ? Author Type: Nurse Practitioner Type: H&P Filed: 06/06/2024 10:26 Note Text: [facility] HISTORY AND PHYSICAL EXAMINATION SERVICE DATE: 06/05/2024 SERVICE TIME: 9:56 AM PRIMARY CARE PHYSICIAN: Essie Ryan, NIURKA, CERAMIC MOLD DESIGNER REASON FOR VISIT: Stacey Sahu is a [...] STOP-Bang Score: 0 (Non-compliant with CPAP ) [id number] Score: Age: <65 Sex: female [id number] Score: ARISCAT Score: Age: <=50 Preoperative SpO2: [...] x 4 Crohn's disease without complication (HCC) [id number] Pulmonary Htn (Hcc) Obese Nirmala (Obstructive Sleep [...] (obstructive slee (more content not included)... [facility] Iron and Iron binding capaci ty panelon 06-05-2024 Iron [Mass/Vol] 91 ug/dL Normal 41-186 [facility] Comment on above: Order Comment: Speci men Type: BLOOD SPECIMENOrdering Facility: [facility] Address: [address] [place] [address] Performed By: #### 5 0190-8, 54174-3, 2275-09 ####[facility] [id number] [place] [address] [place] Iron binding capacity [Mass/Vol] [facility] Comment on above: Order Comment: Speci men Type: BLOOD SPECIMENOrdering Facility: [facility] Address: [address] [place] [address] Result Comment: Unab le to calculate due to hemolysis. Performed By: #### 5 0190-8, 41988-3, 2275- ####[facility] [id number] [place] [address] [place] Iron/TIBC [Molar ratio] [facility] Comment on above: Order Comment: Speci men Type: BLOOD SPECIMENOrdering Facility: [facility] Address: [address] [place] [address] Result Comment: Unab le to calculate due to hemolysis. Performed By: #### 5 0190-8, 04426-8, 2276-4 ####[facility] [id number] [address] [id number] [id number] [place] Zelalem 05-09-2024 CNPN Telephone (ORTHST) ---- STACEY SAHU ([id number]) 1975 F Date Time Provider Department 05/09/24 LOIS MCKEON ORTHST During your visit today, we recorded the following information about you: Lee Ann Valladares 05/09/2024 12:59 PM Signed PSS calling from Dr Rossi's office to ask how soon the PT could be scheduled for surgery for inspire implant, nerve stimulator. General for 3 hours. Please advise [phone] ask to speak with Alejandra or [place]. Allergies As of Date: 05/09/2024 Noted Allergy Reaction PENICILLINS 07/27/2016 16 - Unknown Date Reviewed: 04/16/2024 Reviewed by: Clarissa Nelson MA - Fully Assessed Reason for Visit: Question [6773] Cmt: See note Prescriptions as of 06/01/2024 [...] Status:Closed by LEE ANN VALLADARES on 06/01/24 [facility] CNOVon 04-16-2024 CNOV Office Visit (ORTHST) ---- STACEY SAHU ([id number]) 1975 F Date Time Provider Department 04/16/24 [...] Order(s):CONSULT TO PHYSICAL THERAPY [9032] Order #: [id number]: 1 FUTURE BATH/SHOWER CHAIR [[id number]] Order #: [id number] TOILET RAIL, EACH [[id number]] Order #: [id number] RAISED TOILET SEAT [[id number]] Order #: [id number] WALKER FOLDING WHEELED W/O S [[id number]] Order #: [id number] Prescriptions as of 04/16/2024 - atorvastatin (LIPITOR) [...] Encounter Status:Closed by LOIS MCKEON on 04/16/24 [facility] CNOVon 03-19-2024 CNOV Office Visit (OTMBHT) ---- STACEY SAHU ([id number]) 1975 F Date Time Provider Department 03/19/24 9:30 AM [facility] During your visit today, we recorded the following information about you: Clarissa Zacarias, PATIENCE 03/19/2024 10:[address] Mckeon has ordered a cream that will be delivered to your home. The company, [employer], will call or text you from a [phone] phone number. Please reply or answer the [...] her quality of life. 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 Pain is in her groin and lateral hip. Pain at rest and with physical activities.Review of systems negative for fever, weight loss, malaise, fatigue, significant headache, vision changes, hearing loss, neck swelling, cough, chest pain, shortness of breath, dyspnea on exertion, abdominal pain, nausea, vomiting, diarrhea, urinary dysfunction, upper/lower extremity numbness/tingling/w eakness/edema, heat/cold intolerance Exam mildly antalgic gait. Right [...] - Fully Assessed Reason for Visit: New [[id number]] Cmt: Surgical consult Primary Visit Diagnosis:Pain of right hip [M25.551] Other Visit Diagnosis:Primary osteoarthritis of right hip [M16.11] Order(s):MRI HIP WO IVCON RIGHT [[id number]] Order #: [id number] FUTURE Prescriptions as of 03/19/2024 - atorvastatin [...] be delivered to your home. The company, [employer], will call or text you from a [phone] phone number. Please reply or answer the call to start the process. If you do not hear from them within 48 hours, please call . Letter Text Encounter Status:Closed by LOIS MCKEON Jose on 03/19/24 [facility] XR HIP 3V PELV+ AP/LAT RTon 03-19-2024 XR HIP 3V PELV+ AP/LAT RT * * *Final Report* * * DATE OF EXAM: Mar 19 2024 9:04AM M2X 5352 - XR HIP 3V PELV+ AP/LAT RT / PROCEDURE REASON: Pain in right hip * * * * Physician Interpretation * * * * EXAMINATION / TECHNIQUE: XR HIP 3V PELV+ AP/LAT RT PATIENT/TECHNOLOGIS T PROVIDED HISTORY: chronic right hip pain with [...] Mild right hip osteoarthritis, similar to 11/17/2021. Referral Clerk: [employer] Transcribe Date/Time: Mar 19 2024 9:10A Dictated by : MELISSA MODI MD This examination was interpreted and the report reviewed and electronically signed by: MELISSA MODI MD on Mar 19 2024 9:11AM EST [id number] [facility] XR Pelvis and Hip - right AP and Lateral frogon 03-19-2024 IMPRESSION: Mild right hip osteoarthritis, similar to 11/17/2021. Referral Clerk: [employer] Transcribe Date/Time: Mar 19 2024 9:10A Dictated [...] TECHNIQUE: XR HIP 3V PELV+ AP/LAT RT PATIENT/TECHNOLOGIS T PROVIDED HISTORY: chronic right hip pain with [...] right lower quadrant. DIVISION OF RADIOLOGY Provider, [facility] - 03/19/2024 * * *Final Report* * * DATE OF EXAM: Mar 19 2024 9:04AM M2X 5352 - XR HIP 3V PELV+ AP/LAT RT / PROCEDURE REASON: Pain in right hip * * * * Physician Interpretation * * * * EXAMINATION / TECHNIQUE: XR HIP 3V PELV+ AP/LAT RT PATIENT/TECHNOLOGIS T PROVIDED HISTORY: chronic right hip pain with [...] Mild right hip osteoarthritis, similar to 11/17/2021. Referral Clerk: [employer] Transcribe Date/Time: Mar 19 2024 9:10A Dictated by : MELISSA MODI MD This examination was interpreted and the report reviewed and electronically signed by: MELISSA MODI MD on Mar 19 2024 9:11AM EST [facility] Radiology Study observation (narrative) [facility] XR Pelvis and Hip - right AP and Lateral frogOrdered By: [facility] Provider on 03-19-2024 [facility] CNPDiandra 03-18-2024 CNPN Telephone (OTMBHT) ---- LUIS ALBERTOPRICILLASTACEY ([id number]) 1975 F Date Time Provider Department 03/18/24 LOIS MCKEON During your visit today, we recorded the following information about you: Lupe Betancourt 03/18/2024 4:00 PM Signed Name of Caller: stacey Relationship to patient: patient Last visit in this department: Visit date not found Reason for Call: Other : has questions about what to expect at her appt on 03/19 Callback number: [phone] Clarissa Zacarias RN 03/18/2024 4:57 PM Signed [...] Encounter Status:Closed by LUPE BETANCOURT on 03/22/24 [facility] 29on 03-06-2024 29 Addended by: KAMINI LOVE on: 03/08/2024 11:39 AM Modules accepted: Orders Normal [facility] ALL LIPID PROFILE (FASTING)o n 03-06-2024 CHOL HDL RATIO 3.9 [facility] Comment on above: 3.3 - 4.4 LOW RISK 4.4 - 7.1 AVERAGE RISK 7.1 - 11.0 MODERATE RISK >11.0 HIGH RISK Cholesterol [Mass/Vol] 227 mg/dL High NINF - 200 mg/dL [facility] Cholesterol in HDL [Mass/Vol] 58 mg/dL 40 - 60 mg/dL [facility] Comment on above: > or =60 mg/dl - LOW CARDIOVASCULAR RISK <40 mg/dl - HIGH CARDIOVASCULAR RISK Magnesium [Mass/Vol] 150.0 mg/dL [facility] Comment on above: <100 mg/dl OPTIMAL 100-129 mg/dl NEAR OR ABOVE OPTIMAL 130-159 mg/dl BORDERLINE HIGH 160-189 mg/dl HIGH >190 mg/dl VERY HIGH Magnesium [Mass/Vol] 19.6 mg/dL [facility] Triglyceride [Mass/Vol] 98 mg/dL NINF - 150 mg/dL [facility] HMHP LIVER PANELon Albumin [Mass/Vol] 3.2 g/dL Low 3.4 - 5.0 g/dL [facility] ALBUMIN GLOBULIN RATIO 1.0 NO [facility] ALP [Catalytic activity/Vol] 59 U/L 46 - 116 U/L [facility] ALT [Catalytic activity/Vol] 23 U/L 14 - 59 U/L [facility] AST [Catalytic activity/Vol] 14 U/L Low 15 - 37 U/L [facility] Bilirubin [Mass/Vol] 0.3 mg/dL 0.2 - 1 .0 mg/dL [facility] Bilirubin.indirect [Mass/Vol] 0.1 mg/dL 0.0 - 0.2 mg/dL [facility] Globulin (S) [Mass/Vol] 3.2 g/dL [facility] Protein [Mass/Vol] 6.4 g/dL 6.4 - 8.2 g/dL [facility] No Panel Informationon 03-06 Interpretation and review of laboratory results Abnormal [facility] Healthcar e Office Visiton 03-06-2024 Follow-up visit [id number] Stacey Sahu Lisa 1975 F Date Provider Department Center 03/06/2024 ALEXANDREA BASHIR [facility] SLEEP [facility] Family History Problem Relation Age of Onset Coronary artery disease Father Family Status - Relation Status Age at Father Level of Service:37365 [place] OFFICE/OUTPATIENT NEW MODERATE MDM 45 MINUTES Reason for Visit and Comments: New Patient [632] - Pt was referred for an Inspire sleep apnea evaluation. Pt follows with pulmonary, Dr. Rosa in [place]. Normal [facility] Follow-up visit [id number] Luis AlbertoStacey A 1975 F Date Provider Department Center 03/06/2024 TINO PRATER [facility] Family History Problem Relation Age of Onset Coronary artery disease Father Family Status - Relation Status Age at Father Level of Service:54417 [place] OFFICE/OUTPATIENT ESTABLISHED LOW MDM 20 MIN Normal [facility] Patient Educationon 11-28-19 Patient Education Nephrology [...] ? 8 oz (237 mL) of milk, calcium-fortifiedno n-dairy milk, and calcium-fortifiedfr uit juice. Calcium-fortified means that calcium has been [...] Spinach (cooked), rhubarb, beets, sweet potatoes, and Lithuanian chard. ? Peanuts. ? Potato chips, urdu fries, and baked potatoes with skin on. ? Nuts and nut products. ? Chocolate. ? If you regularly take a diuretic medicine, make sure to eat at least 1 or 2 servings of fruits or vegetables that are high in potassium each day. These include: ? Avocado. ? Banana. ? [place], prune, carrot, or tomato juice. ? Baked [...] fish oil, or vitamin B6. ? Take tiif-ohd-zjfmwms and prescription medicines only as told by your health care provider. These include supplements. What foods sh (more content not included)... Normal [facility] Screenson 11-28-2023 Screens [phone] [id number] F#[id number] Normal [facility] Urology Office/Clinic Noteon 11-28-2023 Urology Office/Clinic [...] CT AP w con 12/06/22 [facility] - 5 mm RLP stone and 2 mm LLP stone. Mild fulness at R renal pelvis with tapering at [facility]. KUB 01/05/23 [facility] - 4 mm renal stone in RLP. [...] Contact Information ANGELICA SHAIKH, LESLIE [place], URL [address] [facility] [place] [address] Additional Instructions: 1 yr KUB, BEN Patient [...] hypertension) Historical anxiety disorder crohn's disease depression hypercholesterolemi a nephrolithiasis Procedure/Surgical History Hemithyroidectomy (12/2022), Hysterectomy, laparoscopy, [...] Protein Urine Dipstick: Negative (11/28/23 09:04:00) Specific [place] Urine Dipstick: 1.020 (11/28/23 09:04:00) Urine Appearance Urine Dipstick: Clear (11/28/23 09:04:00) Urine Color Urine Dipstick: Yellow (11/28/23 09:04:00) Urobilinogen Urine Dipstick: Normal 0.2-1 EU/dl (11/28/23 09:04:00) pH Urine Dipstick: 7 (11/28/23 09:04:00) [1] URO- 6 month f/u; JOSE FELIX, Jose Palafox 05/29/2023 15:[address] [facility] Comment on above: Result Comment: Elec tronically Signed By: LESLIE JUNG PA-C\.br\Date and Time Signed: 11/28/23 10:11 EDT\.br\Electronically Co-Signed By: Zenobia Denis\.br\Date and Time Co-Signed: 11/28/23 09:37 EDT 37on 08-29-2023 37 Increase lipitor/atorvastati n to 40 mg daily Have labs drawn in about 2-3 months to check liver function and cholesterol levels Normal [facility] Office Visiton 08-29-2023 Follow-up visit [id number] Stacey Sahu 1975 F Date Provider Department Center 08/29/2023 TINO PRATER RAVI [facility] Family History Problem Relation Age of Onset Coronary artery disease Father Family Status - Relation Status Age at Father Level of Service:[address] [place] OFFICE/OUTPATIENT ESTABLISHED MOD MDM 30 MIN Normal [facility] Lab Reportson 08-01-2023 Lab Reports [id number] 5F#1.00TIFF Normal [facility] Lab Reportson 07-31-2023 Lab Reports [id number] 1B#1.00TIFF Normal [facility] Lab Reportson 07-28-2023 Lab Reports [id number] DC#1.00TIFF Normal [facility] Lab Reports [id number] 8E#1.00TIFF Normal [facility] Lab Reportson 07-26-2023 Lab Reports [id number] A2#1.00TIFF Normal [facility] COVID/FLU/RSV RT-PCRon 07-11 SARS-CoV-2 (COVID-19) RNA IZAIAH+probe Ql (Unsp spec) Positive [facility] Synfora Other COVID/FLU/RSV RT-PCR Negative [facility] Synfora Other Ambulatory Visit Summaryon 1 07-30-2022 Ambulatory Visit Summary STACEY SAHU :1975 Visit Date:05/29/2023 Ambulatory Visit Instructions Your Diagnosis Kidney stones Gross hematuria Tests Performed Urnls Dip Stick Auto w/o Microscopy POC 73989 Your Care Team Attending Physician - JOSE [...] Where: [facility] [address], [place] [phone] Medications What How Much When Instructions Unchanged [...] Urnls Dip Stick Auto w/o Microscopy POC 30482 (05/29/2023) Bilirubin Urine Dipstick - Negative Blood Urine Dipstick - 3+ Large Glucose Urine Dipstick - Negative Ketones Urine Dipstick - Negative Leukocytes Urine Dipstick - Negative Nitrite Urine Dipstick - Negative Protein Urine Dipstick - Negative Specific [place] Urine Dipstick - >=1.030 Urine Appearance Urine [...] treatment for. anxiety disorder crohn's disease depression hypercholesterolemi a nephrolithiasis Patient Survey You may receive a [...] glands make too much parathyroid hormone (primary hyperparathyroidism ). ? A buildup of a type of [...] Santy (more content not included)... Normal [facility] Patient Educationon 05-29-20 23 Patient [...] glands make too much parathyroid hormone (primary hyperparathyroidism ). ? A buildup of a type of [...] these instructions at home: Medicines ? Take zcds-tgp-lsvdaxs and prescription medicines only as told by [...] (NKF): www.kidney.org ? [facility] (UCF): www.urologyhealth.o rg Contact a doctor if: ? You have [...] provider. Document Revised: 02/14/2022 Document Reviewed: 02/14/2022 Nitch Patient Education ? 2022 [employer]OUND. Lay [facility] Urology Office/Clinic Noteon 05-29-2023 Urology [...] stones id'd. CT AP w con 12/06/22 [facility] - 5mm RLP stone and 2mm LLP [...] Palafox, URL [facility] [address], [place] [phone] Additional Instructions: 4 mos w/ metabolic w/u Patient Education Kidney Stones, Jlnz-vy-Fxki IImani, personally scribed for Dr. Garcia on [...] hypertension) Historical anxiety disorder crohn's disease depression hypercholesterolemi a nephrolithiasis Procedure/Surgical History Hemithyroidectomy (12/2022), Hysterectomy, laparoscopy, [...] Dipstick: Negative (more content not included)... Normal [facility] Comment on above: Result Comment: Elec tronically Signed By: Jose GARCIA MD\.br\Date and Time Signed: 05/29/23 15:21 EST\.br\Electronically Co-Signed By: Imani Renae.br\Date and Time Co-Signed: 05/29/23 15:19 EST Gastroenterology [...] rubs, murmurs, or gallop. Peripheral: no edema Gastrointestinal/Ab domen: Abdomen: normal consistency and bowel sounds; no [...] with voice recognition artificial intelligence software, specifically [employer] and or [employer]. Substitutions may have occurred due to the inherent limitations of voice recognition and artificial intelligence software. ATTESTATION: Documentation services were performed after patient or guardian consented to allow [employer] to record this visit. DELVIN senior care specialist and provider reviewed before signing. DELVIN: Prerna Martinez/Pasted by Ana Rosa Iglesias. Follow-up No qualifying data available Problem List/Past Medical History Ongoing Bipolar depression Chronic GERD Crohn's disease, small intestine Flank pain Gross hematuria Hyperlipidemia Kidney stones Nocturia PAH (pulmonary artery hypertension) Historical anxiety disorder crohn's disease depression hypercholesterolemi a nephrolithiasis Procedure/Surgical History Hysterectomy, laparoscopy, partial colectomy, Tonsillectomy, tubal ligation. Medications Aleve, Oral, q12hr NuLYTELY [place] oral powder for reconstitution, See Instructions Prilosec, Oral, Daily Allergies H/O: penic (more content not included)... Normal [facility] Comment on above: Result Comment: Elec tronically Signed By: Ana Rosa Iglesias\.br\Date and Time Signed: 02/02/23 15:48 EDT\.br\Electronically Co-Signed By: BILL FELIX, Ignacia\.br\Date and Time Co-Signed: 02/06/23 14:00 EDT Calprotectin, Fecalon 2022 Calprotectin (Stl) [Mass/Mass] 87 mcg/gm Invalid Interpretation Code 0-[address] [facility] Comment on above: Result Comment: Conc entration Interpretation Follow-Up < 5 - 50 ug/g Normal None >50 -120 ug/g Borderline Re-evaluate in 4-6 weeks >120 ug/g Abnormal Repeat as clinically indicated Performed at: [address] [id number] MD Kody Hayes Performed By: #### 1 [id number] ####[facility] [address] [place] [address] Ambulatory Visit Summaryon 0 02-02-2023 Ambulatory Visit [...] FELIX, Jose Palafox Where: [facility] Normal [facility] Auto Diffon 02-01-2023 Basophils/100 WBC (Bld) 2.7 % High 0.0-2.[address] [facility] Comment on above: Order Comment: Order Added by Discern Expert. Performed By: #### 2 531533, 9018445, 0116996, 18591632, 2234513 ####[address] [place] [address] Basophils/Leukocytes Auto (Bld) [Pure # fraction] 0.2 E9/L Normal 0.0-0.[address] [facility] Comment on above: Order Comment: Order Added by Discern Expert. Performed By: #### 2 457494, 0544253, 9515132, 01764172, 0189261 ####[address] [address] Eosinophils/100 WBC (Bld) 8.5 % High 0.0-8.[address] [facility] Comment on above: Order Comment: Order Added by Roma Expert. Performed By: #### 2 044906, 6091691, 1568589, 38099633, 7793879 ####[address] [address] Eosinophils/Leukocytes Auto (Bld) [Pure # fraction] 0.7 E9/L High 0.0-0.[address] [facility] Comment on above: Order Comment: Order Added by Roma Expert. Performed By: #### 2 942318, 7177085, 9879996, 91691525, 3756107 ####[address] [address] Lymphocytes/100 WBC (Bld) 34.8 % Normal 14.0-50.[address] [facility] Comment on above: Order Comment: Order Added by Roma Expert. Performed By: #### 2 625505, 5870857, 9258051, 87452569, 2961847 ####[address] [address] Lymphocytes/Leukocytes Auto (Bld) [Pure # fraction] 2.8 E9/L Normal 1.0-4.[address] [facility] Comment on above: Order Comment: Order Added by Roma Expert. Performed By: #### 2 786226, 5346773, 8090944, 48928767, 1979687 ####[facility] [address] [place] [address] Monocytes/100 WBC (Bld) 9.4 % Normal 4.0-14.[address] [facility] Comment on above: Order Comment: Order Added by Discern Expert. Performed By: #### 2 096899, 8650114, 2748875, 14120688, 4745218 ####[address] [place] [address] Monocytes/Leukocytes Auto (Bld) [Pure # fraction] 0.8 E9/L Normal 0.2-1.[address] [facility] Comment on above: Order Comment: Order Added by Discern Expert. Performed By: #### 2 284514, 0298439, 8891293, 39197868, 9533278 ####[address] [place] [address] Neutrophils/100 WBC (Bld) 44.6 % Normal 36.0-75.[address] [facility] Comment on above: Order Comment: Order Added by Discern Expert. Performed By: #### 2 883871, 2745831, 5606751, 88087948, 8681374 ####[address] [address] Neutrophils/Leukocytes Auto (Bld) [Pure # fraction] 3.5 E9/L Normal 2.0-7.[address] [facility] Comment on above: Order Comment: Order Added by Discern Expert. Performed By: #### 2 749265, 8864595, 0813683, 16408756, 7938135 ####[address] [place] [address] CBC w/ Auto Diffon 3 Erythrocyte distribution width (RBC) [Ratio] 13.6 % Normal 10.9-14.[address] [facility] Comment on above: Performed By: #### 2 831187, 0147277, 5504088, 56594641, 5292321 ####[address] [place] [address] Hematocrit (Bld) [Volume fraction] 39.5 % Normal 34.0-46.[address] [facility] Comment on above: Performed By: #### 2 169874, 2720072, 2245156, 97082763, 2732262 ####[facility] [address] [place] [address] Hemoglobin (Bld) [Mass/Vol] 13.3 g/dL Normal 12.0-16.[address] [facility] Comment on above: Performed By: #### 2 994986, 9253373, 8840175, 23063044, 4652813 ####[address] MCH (RBC) [Entitic mass] 29.1 pg Normal 27.0-34.[address] [facility] Comment on above: Performed By: #### 2 472775, 0006963, 0416432, 20600424, 2929941 ####[address] MCHC (RBC) [Mass/Vol] 33.7 g/dL Normal 31.4-36.0 [facility] Comment on above: Performed By: #### 2 655239, 3702311, 8628439, 11706406, 2760953 ####[address] [address] MCV (RBC) [Entitic vol] 86.4 fL Normal 80.0-100.[address] [facility] Comment on above: Performed By: #### 2 790516, 4046915, 8766584, 07391713, 0410122 ####[address] [place] [address] Platelet mean volume (Bld) [Entitic vol] 8.9 fL Normal 6.4-10.[address] [facility] Comment on above: Performed By: #### 2 255126, 2243148, 1694349, 08277362, 9254702 ####[address] Platelets (Bld) [#/Vol] 274.0 E9/L Normal 150.0-500.[address] [facility] Comment on above: Performed By: #### 2 391305, 8043861, 9472552, 26864762, 2918041 ####[facility] [address] [place] [address] RBC (Bld) [#/Vol] 4.6 E12/L Normal 4.3-5.[address] [facility] Comment on above: Performed By: #### 2 129782, 4366076, 5062006, 44085325, 6596450 ####[facility] [address] [place] [address] WBC corrected for nucl RBC Auto (Bld) [#/Vol] 8.0 E9/L Normal 4.0-11.0 [facility] Comment on above: Performed By: #### 2 305824, 1118977, 7759450, 78458531, 3407601 ####[facility] [address] [place] [address] CHEMISTRYOrdered By: SYSTEM SYSTEM on 02-01-2023 Albumin [...] 80 mL/min/1.73 m2 Normal >=59mL/min/1 .73 m2 [facility] Chem S Globulin (S) [Mass/Vol] 3.2 g/dL Normal 1.4 - 4.0 gm/dL FT Remisol Glucose [Mass/Vol] 99 mg/dL Normal 55 - 199 mg/dL FT [facility] Potassium [Moles/Vol] 3.9 mmol/L Normal 3.5 - 5.3 mmol/L [facility] Protein [Mass/Vol] 7.2 g/dL Normal 6.0 - 7.8 gm/dL [facility] Sodium [Moles/Vol] 139 mmol/L Normal 135 - 145 mmol/L [facility] Urea nitrogen [Mass/Vol] 15 mg/dL Normal 5 - 21 mg/dL [facility] Urea nitrogen/Creatinine [Mass ratio] 17 mg/mg Normal 10 - 20 [facility] CMPon 02-01-2023 Albumin [Mass/Vol] 4.0 g/dL Normal 3.3-5.[address] [facility] Comment on above: Performed By: #### 2 800599, 3716685, 2300573, 11513139, 3723736 ####[facility] [address] [place] [address] Albumin/Globulin (S) [Mass conc ratio] 1.2 Normal 1.1-2.[address] [facility] Comment on above: Performed By: #### 2 323222, 9636389, 9006784, 92179304, 4322886 ####[facility] [address] [place] [address] ALP [Catalytic activity/Vol] 53 Int._Unit/L Normal 21-[address] [facility] Comment on above: Performed By: #### 2 849146, 1111456, 2864411, 69704033, 5278450 ####[facility] [address] [place] [address] ALT No additional P-5'-P [Catalytic activity/Vol] 18 Int._Unit/L Normal 6-[address] [facility] Comment on above: Performed By: #### 2 273983, 3615487, 7698971, 41594409, 9466654 ####[facility] [address] [place] [address] Anion gap [Moles/Vol] 13 mmol/L Normal 6-16 [facility] Comment on above: Performed By: #### 2 224978, 6250027, 2396802, 54116107, 1740569 ####[facility] [address] [place] [address] AST [Catalytic activity/Vol] 18 Int._Unit/L Normal 5-[address] [facility] Comment on above: Performed By: #### 2 456653, 0551288, 3554289, 25437762, 8096365 ####[facility] [address] [place] [address] Bilirubin [Mass/Vol] 0.4 mg/dL Normal 0.0-1.1 [facility] Comment on above: Performed By: #### 2 635311, 7281590, 4847602, 48366746, 4111955 ####[facility] [address] [place] [address] Calcium [Mass/Vol] 9.1 mg/dL Normal 8.9-11.[address] [facility] Comment on above: Performed By: #### 2 600032, 8261737, 6553945, 43670632, 8482270 ####[facility] [address] [place] [address] Chloride [Moles/Vol] 106 mmol/L Normal 101-111 [facility] Comment on above: Performed By: #### 2 543952, 6306962, 1510221, 42040924, 9844623 ####[facility] [address] [place] [address] CO2 [Moles/Vol] 24 mmol/L Normal 21-31 [facility] Comment on above: Performed By: #### 2 735587, 7061850, 1063210, 32689869, 2995175 ####[facility] [address] [place] [address] Creatinine [Mass/Vol] 0.9 mg/dL Normal 0.5-1.3 [facility] Comment on above: Performed By: #### 2 804741, 0188048, 2060516, 57688668, 4033280 ####[facility] [address] [place] [address] Globulin (S) [Mass/Vol] 3.2 g/dL Normal 1.4-4.[address] [facility] Comment on above: Performed By: #### 2 486302, 3581408, 1982880, 74153202, 2085451 ####[facility] [address] [place] [address] Glucose [Mass/Vol] 99 mg/dL Normal 55-[address] [facility] Comment on above: Result Comment: If t his glucose result represents a fasting glucose, interpretation should refer to the following reference range: 55-99 mg/dL Performed By: #### 2 023028, 0241398, 5427922, 82858919, 2351329 ####[facility] [address] [place] [address] Potassium [Moles/Vol] 3.9 mmol/L Normal 3.5-5.3 [facility] Comment on above: Performed By: #### 2 431116, 5029761, 2956694, 61302811, 8768563 ####[facility] [address] [place] [address] Protein [Mass/Vol] 7.2 g/dL Normal 6.0-7.[address] [facility] Comment on above: Performed By: #### 2 953795, 6493902, 2196017, 51706319, 2762274 ####[facility] [address] [place] [address] Sodium [Moles/Vol] 139 mmol/L Normal 135-[address] [facility] Comment on above: Performed By: #### 2 992807, 7431921, 4408199, 15380755, 6595564 ####[facility] [address] [place] [address] Urea nitrogen [Mass/Vol] 15 mg/dL Normal 5-[address] [facility] Comment on above: Performed By: #### 2 185902, 4630113, 6566217, 74164078, 1493977 ####[facility] [address] [place] [address] Urea nitrogen/Creatinine [Mass ratio] 17 No Units Normal 10-[address] [facility] Comment on above: Performed By: #### 2 504995, 8119881, 4640279, 77388620, 8479776 ####[facility] [address] [place] [address] CRPon 02-01-2023 CRP [Mass/Vol] 0.7 mg/dL Normal <=1.9 [facility] Comment on above: Performed By: #### 2 547002, 3661620, 6110655, 61698756, 4921351 ####[facility] [address] [place] [address] Consent for Treatmenton Consent for Treatment [id number] 2E#1.00CD:[address] [facility] HEMATOLOGYOrdered By: SYSTEM SYSTEM on 02-01-2023 Basophils/100 WBC (Bld) 2.7 % High 0.0 - 2.0 % [facility] HemeAutoSS Basophils/Leukocytes Auto (Bld) [Pure # fraction] 0.2 E9/L Normal 0.0 - 0.2 E9/L [facility] HemeAutoSS Eosinophils/100 WBC (Bld) 8.5 % High 0.0 - 8.0 % [facility] HemeAutoSS Eosinophils/Leukocytes Auto (Bld) [Pure # fraction] 0.7 E9/L High 0.0 - 0.5 E9/L [facility] HemeAutoSS Lymphocytes/100 WBC (Bld) 34.8 % Normal 14.0 - 50.0 % [facility] HemeAutoSS Lymphocytes/Leukocytes Auto (Bld) [Pure # fraction] 2.8 E9/L Normal 1.0 - 4.0 E9/L [facility] HemeAutoSS Monocytes/100 WBC (Bld) 9.4 % Normal 4.0 - 14.0 % [facility] HemeAutoSS Monocytes/Leukocytes Auto (Bld) [Pure # fraction] 0.8 E9/L Normal 0.2 - 1.0 E9/L [facility] HemeAutoSS Neutrophils/100 WBC (Bld) 44.6 % Normal 36.0 - 75.0 % [facility] HemeAutoSS Neutrophils/Leukocytes Auto (Bld) [Pure # fraction] 3.5 E9/L [...] 4.6 E12/L Normal 4.3 - 5.9 E12/L [facility] HemeAutoSS WBC corrected for nucl RBC Auto (Bld) [#/Vol] 8.0 E9/L Normal 4.0 - 11.0 E9/L [facility] HemeAutoSS eGFRon 02-01-2023 GFR/1.73 sq M.predicted among non-blacks MDRD (S/P/Bld) [Vol rate/Area] 80 mL/min/1.73 m2 Normal >=[address] [facility] Comment on above: Order Comment: Order added by Discern Expert. Result Comment: Rigging Foreman gail kidney disease could be indicated at eGFR's of less than 60 mL/min/1.73m2. Kidney failure is indicated at less than 15 mL/min/1.73m2. Performed By: #### 2 331824, 6745592, 8112975, 24658363, 5241473 ####[facility] [address] [place] [address] XR Abdomen 1 Viewon 01-07-20 23 XR [...] mGy = na DAP = na Normal [facility] Consent for Treatmenton 12-24 Consent for Treatment [id number] 2E#1.00CD:[address] [facility] Outside Colonoscopyon 2022 Outside Colonoscopy [id number] 26#2.00CD:[address] [facility] CT Abdomen/Pelvis w/contrast (enterography)on 12-09-2022 CT [...] in ml's: [address] [facility] Consent for Treatmenton 11-24 Consent for Treatment [id number] A4#1.00CD:[address] [facility] ECHOCARDIO M/2D COMPLETEon 0 11-22-2022 ECHOCARDIO M/2D COMPLETE Patient: STACEY SAHU Exam Date: 11/22/2022 : 1975 Gender:F [facility]ing : [facility] Admission #: [id number] Family : Order #: [id number] CLICK HERE TO VIEW EXAM ECHOCARDIOGRAM REPORT [...] on 11/22/2022 at 17:44 Normal [facility] THYROID FN ASP BXon 10-28 THYROID FN ASP BX Begin Addendum #1 COLLECTED DATE/TIME: 10/18/2022 13:19 EDT Final Diagnosis Report for [facility] [place], [place] (A/B) SOFT TISSUE MASS CEPHALAD TO THYROID; FINE NEEDLE ASPIRATION: -ATYPIA OF UNDETERMINED SIGNIFICANCE. -CYST CONTENT. NOTE: Sparsely cellular aspirate compromised of follicular cells with architectural atypia. Molecular testing or a repeat aspirate may be helpful if clinically indicated. The final diagnosis is based on a microscopic exam of apprenticeship training representative sections. 10/25/[address] Caceres. [...] 2. Pathology results are pending. Normal [facility] XR KUB 1 VIEWon 10-27-2022 XR [...] PAULETTE GALVAN Date: 2022-10-27 07:19 Normal [facility] CT NECK ST W CONon CT [...] enhancement to thyroid gland. LYMPH NODES: No pathological-appear ing or enlarged lymph nodes. VASCULATURE: No suspicious abnormality. BONES: No significant osseous lesions. OTHER: No additional imaging findings. IMPRESSION: 1. 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 2. Slightly heterogeneous appearance of thyroid gland; no suspicious nodules. Electronically authenticated by: PREET RODRIGEZ Date: 2022-10-05 08:22 Normal [facility] CARDIAC DENZEL ADMITon 023 CK [Catalytic activity/Vol] 149 U/L Normal 26-192 [facility] Comment on above: Performed By: #### C MADM, LIPA, CMP ####[facility] [address] [place] [address]Dr[address] Nita Iverson CK.MB [Mass/Vol] 1.51 ng/mL Normal <=3.60 [facility] Comment on above: Performed By: #### C MADM, LIPA, CMP ####[facility] [address] [place] [address]Dr. Nita Iverson HSTROP 4.1 pg/mL Normal 4.0-51.3 [facility] Comment on above: Result Comment: CUT- OFF POINTS HAVE BEEN ESTABLISHED BASED ON THE FOURTH UNIVERSAL DEFINITIONS OF MYOCARDIAL INFARCTION. THE UPPER REFERENCE LIMIT (URL) OF TROPONIN, DEFINED THE 99TH PERCENTILE OF cTnI DISTRIBUTION IN A REFERENCE POPULATION, HAS BEEN CONFIRMED THE DECISION THRESHOLD FOR PA DIAGNOSIS. Performed By: #### C MADM, LIPA, CMP ####[facility] [address] [place] [address]Dr. Nita Iverson ARIES 47 ng/mL Normal 9-82 [facility] Comment on above: Performed By: #### C MADM, LIPA, CMP ####[facility] [address] [place] [address]DrMaribel Iverson CBC AUTO DIFFon 09-21-2022 BASO # 0.1 103/ul Normal 0.0-0.1 [facility] Comment on above: Performed By: #### C BC #### [facility] [address] [place] [address] Dr. Nita Iverson Basophils/100 WBC (Bld) 0.8 % Normal 0.2-2.0 [facility] Comment on above: Performed By: #### C BC #### [facility] [address] [address] [address] Nita Iverson EO # 0.7 103/ul Normal 0.0-0.7 [facility] Comment on above: Performed By: #### C BC #### [facility] [address] [address] [address] Nita Iverson Eosinophils/100 WBC (Bld) 7.1 % Critically high 0.9-7.0 [facility] Comment on above: Performed By: #### C BC #### [facility] [address] [place] [address] Dr. Nita Iverson Erythrocyte distribution width (RBC) [Ratio] 12.3 % Normal 11.0-15.0 [facility] Comment on above: Performed By: #### C BC #### [facility] [address] [place] [address] Dr. Nita Iverson Hematocrit (Bld) [Volume fraction] 40.1 % Normal 36.0-48.0 [facility] Comment on above: Performed By: #### C BC #### [facility] [address] [place] [address] Dr. Nita Iverson Hemoglobin (Bld) [Mass/Vol] 13.6 g/dL Normal 12.0-16.0 [facility] Comment on above: Performed By: #### C BC #### [facility] [address] [place] [address] Dr. Nita Iverson IG # 0.02 10e3/ul Normal 0.00-0.03 [facility] Comment on above: Performed By: #### C BC #### [facility] [address] [place] [address] Dr. Nita Iverson IG % 0.2 % Normal 0.0-0.5 [facility] Comment on above: Performed By: #### C BC #### [facility] [address] [place] [address] Dr. Nita Iverson LYMPH # 3.0 103/ul Normal 1.2-3.8 [facility] Comment on above: Performed By: #### C BC #### [facility] [address] [place] [address] Dr. Nita Iverson Lymphocytes/100 WBC (Bld) 30.2 % Normal 20.5-60.0 [facility] Comment on above: Performed By: #### C BC #### [facility] [address] [place] [address] Dr. Nita Iverson MANUAL DIFF REQ NO Normal [facility] Comment on above: Performed By: #### C BC #### [facility] [address] [address] [address] Nita Iverson MCH (RBC) [Entitic mass] 30.0 pg Normal 26.7-34.0 [facility] Comment on above: Performed By: #### C BC #### [facility] [address] [place] [address] Dr. Nita Iverson MCHC (RBC) [Mass/Vol] 33.9 g/dL Normal 29.9-35.2 [facility] Comment on above: Performed By: #### C BC #### [facility] [address] [place] [address] Dr. Nita Iverson MCV (RBC) [Entitic vol] 88.3 fL Normal 81.0-99.0 [facility] Comment on above: Performed By: #### C BC #### [facility] [address] [place] [address] Dr. Nita Iverson MONO # 0.8 103/ul Normal 0.3-0.8 [facility] Comment on above: Performed By: #### C BC #### [facility] [address] [place] [address] Dr. Nita Iverson Monocytes/100 WBC (Bld) 7.8 % Normal 1.7-12.0 [facility] Comment on above: Performed By: #### C BC #### [facility] [address] [place] [address] Dr. Nita Iverson NEUT # 5.4 103/ul Normal 1.4-6.5 [facility] Comment on above: Performed By: #### C BC #### [facility] [address] [place] [address] Dr. Nita Iverson Neutrophils/100 WBC (Bld) 53.9 % Normal 43.0-75.0 [facility] Comment on above: Performed By: #### C BC #### [facility] [address] [place] [address] Dr. Nita Iverson Platelet mean volume (Bld) [Entitic vol] 10.4 fL Normal 9.5-13.5 [facility] Comment on above: Performed By: #### C BC #### [facility] [address] [place], [place] [address] Dr. Nita Iverson PLT 270 103/ul Normal 150-450 [facility] Comment on above: Performed By: #### C BC #### [facility] [address] [address] [address] Nita Iverson RBC 4.54 106/ul Normal 4.20-5.40 [facility] Comment on above: Performed By: #### C BC #### [facility] [address] [address] [address] Nita Iverson WBC 10.0 103/ul Normal 4.0-11.0 [facility] Comment on above: Performed By: #### C BC #### [facility] [address] ABD/PELV W CONon [...] Lymph nodes: No abdominal or pelvic lymphadenopathy. Mesentery/Peritoneu m: No ascites or mass. Retroperitoneum: No mass. [...] MISTY SPEARS Date: 2022-09-21 21:41 Normal [facility] ER URINE PROFILEon 3 Bilirubin Ql (U) Negative Normal NEGATIVE [facility] Comment on above: Performed By: #### U MICRO, ERUR, PREGU ####[facility] [address] [address]Dr. Nita vIerson Clarity (U) CLEAR Normal CLEAR [facility] Comment on above: Performed By: #### U MICRO, ERUR, PREGU ####[facility] [address] [address]Dr. Nita Iverson Color (U) LT. YELLOW Normal YELLOW [facility] Comment on above: Performed By: #### U MICRO, ERUR, PREGU ####[facility] [address] [address]Dr. Nita FISHERD A micrscopic examination will be performed if indicated. Normal [facility] Comment on above: Performed By: #### U MICRO, ERUR, PREGU ####[facility] [address] [address]Dr. Nita Iverson Glucose Ql (U) Negative Normal NEGATIVE [facility] Comment on above: Performed By: #### U MICRO, ERUR, PREGU ####[facility] [address] [address]Dr. Nita Iverson Hemoglobin Ql (U) LARGE Abnormal NEGATIVE [facility] Comment on above: Performed By: #### U MICRO, ERUR, PREGU ####[facility] [address] [address]Dr. Nita Iverson Ketones Ql (U) Negative Normal NEGATIVE [facility] Comment on above: Performed By: #### U MICRO, ERUR, PREGU ####[facility] [address] [address]Dr. Janniejennifer Iverson LEUKOCYTES Negative Normal NEGATIVE [facility] Comment on above: Performed By: #### U MICRO, ERUR, PREGU ####[facility] [address] [address]Dr. Nita Kishor Nitrite Ql (U) Negative Normal NEGATIVE [facility] Comment on above: Performed By: #### U MICRO, ERUR, PREGU ####[facility] [address] [address]Dr. Nita Iverson pH (U) 6.5 [pH] Normal 5-9 [facility] Comment on above: Performed By: #### U MICRO, ERUR, PREGU ####[facility] [address] [place], [place] [address]Dr. Nita Iverson SPEC GRAVITY 1.020 Normal 1.005-<=1.02 5 [facility] Comment on above: Performed By: #### U MICRO, ERUR, PREGU ####[facility] [address] [place], [place] [address]Dr. Nita Iverson UA PROTEIN Negative Normal NEGATIVE/ TRACE [facility] Comment on above: Performed By: #### U MICRO, ERUR, PREGU ####[facility] [address] [place], [place] [address]Dr. Nita Iverson UR MICRO IND INDICATED Normal [facility] Comment on above: Performed By: #### U MICRO, ERUR, PREGU ####[facility] [address] [place], [place] [address]Dr. Nita Iverson Urobilinogen Qn (U) 1.0 {Senait'U}/dL Normal 0.2 - 1. 0 [facility] Comment on above: Performed By: #### U MICRO, ERUR, PREGU ####[facility] [address] [address]Dr. Nita Iverson LIPASEon 09-21-2022 Lipase [Catalytic activity/Vol] 89.0 U/L Normal 73.0-393.0 [facility] Comment on above: Performed By: #### C MADM, LIPA, CMP ####[facility] [address] [place], [place] [address]Dr. Nita Iverson URon 09-21-2022 , QUAL Negative Normal NEGATIVE [facility] Comment on above: Performed By: #### U MICRO, ERUR, PREGU ####[facility] [address] [place], [place] [address]Dr. Nita Iverson PROF 14(COMP METB)on 023 Albumin [Mass/Vol] 3.5 g/dL Normal 3.4-5.0 [facility] Comment on above: Performed By: #### C MADM, LIPA, CMP #### [facility] [address] [address] [address] Nita Iverson Albumin/Globulin [Mass ratio] 1.0 {ratio} Normal [facility] Comment on above: Performed By: #### C MADM, LIPA, CMP #### [facility] [address] [address] [address] Nita Iverson ALP [Catalytic activity/Vol] 67 U/L Normal 46-116 [facility] Comment on above: Performed By: #### C MADM, LIPA, CMP #### [facility] [address] [address] [address] Nita Iverson ALT [Catalytic activity/Vol] 30 U/L Normal 14-59 [facility] Comment on above: Performed By: #### C MADM, LIPA, CMP #### [facility] [address] [address] [address] Nita Iverson Anion gap [Moles/Vol] 11.8 mmol/L Normal [facility] Comment on above: Performed By: #### C MADM, LIPA, CMP #### [facility] [address] [address] [address] Nita Iverson AST [Catalytic activity/Vol] 25 U/L Normal 15-37 [facility] Comment on above: Performed By: #### C MADM, LIPA, CMP #### [facility] [address] [address] [address] Nita Iverson Bilirubin [Mass/Vol] 0.3 mg/dL Normal 0.2-1.0 [facility] Comment on above: Performed By: #### C MADM, LIPA, CMP #### [facility] [address] [address] [address] Nita Iverson Calcium [Mass/Vol] 9.2 mg/dL Normal 8.5-10.1 [facility] Comment on above: Performed By: #### C MADM, LIPA, CMP #### [facility] [address] [place] [address] Dr. Nita Iverson Chloride [Moles/Vol] 106 mmol/L Normal 98-107 [facility] Comment on above: Performed By: #### C MADM LIPA, CMP #### [facility] [address] [place] [address] Dr. Nita Iverson CO2 [Moles/Vol] 28.7 mmol/L Normal 21.0-32.0 [facility] Comment on above: Performed By: #### C MADM LIPA, CMP #### [facility] [address] [place] [address] Dr. Nita Iverson Creatinine [Mass/Vol] 0.81 mg/dL Normal 0.55-1.02 [facility] Comment on above: Performed By: #### C MADM LIPA, CMP #### [facility] [address] [place] [address] Dr. Nita Iverson EGFR-AF CYPRIOT >60 Normal >=60 [facility] Comment on above: Performed By: #### C MADM LIPA, CMP #### [facility] [address] [place] [address] Dr. Nita Iverson EGFR-NON AF CYPRIOT >60 Normal >=60 [facility] Comment on above: Performed By: #### C MADM, LIPA, CMP #### [facility] [address] [place] [address] Dr. Nita Iverson Globulin (S) [Mass/Vol] 3.5 g/dL Normal [facility] Comment on above: Performed By: #### C JANETH DENSONA, CMP #### [facility] [address] [address] [address] Nita Iverson Glucose [Mass/Vol] 106 mg/dL Normal 74-106 [facility] Comment on above: Performed By: #### C JARETT LIPA, CMP #### [facility] [address] [address] [address] Nita Iverson Potassium [Moles/Vol] 4.5 mmol/L Normal 3.5-5.1 [facility] Comment on above: Performed By: #### C JANETH DENSONA, CMP #### [facility] [address] [place] [address] Dr. Nita Iverson Protein [Mass/Vol] 7.0 g/dL Normal 6.4-8.2 [facility] Comment on above: Performed By: #### C JARETT LIPA, CMP #### [facility] [address] [address] [address] Nita Iverson Sodium [Moles/Vol] 142 mmol/L Normal 136-145 [facility] Comment on above: Performed By: #### C JARETT LIPA, CMP #### [facility] [address] [place] [address] Dr. Nita Iverson Urea nitrogen [Mass/Vol] 12.0 mg/dL Normal 7.0-18.0 [facility] Comment on above: Performed By: #### C JARETT LIPA, CMP #### [facility] [address] [place] [address] Dr. Nita Iverson Urea nitrogen/Creatinine [Mass ratio] 14.8 mg/mg Normal [facility] Comment on above: Performed By: #### C JARETT LIPA, CMP #### [facility] [address] [place] [address] Dr. Nita Iverson URINE MICROSCOPIC ONLYon BACTERIA NONE SEEN Normal NONE SEEN [facility] Comment on above: Performed By: #### U MICRO, ERUR, PREGU ####[facility] [address] [address]Dr. Nita Iverson Bacteria identified Cx Nom (U) NOT INDICATED Normal [facility] Comment on above: Performed By: #### U MICRO, ERUR, PREGU ####[facility] [address] [address]Dr. Nita Iverson CAST NONE SEEN Normal NONE SEEN [facility] Comment on above: Performed By: #### U MICRO, ERUR, PREGU ####[facility] [address] [address]Dr. Nita Iverson Crystals LM Nom (Urine sed) NONE SEEN Normal NONE SEEN [facility] Comment on above: Performed By: #### U MICRO, ERUR, PREGU ####[facility] [address] [address]Dr. Nita Iverson Epithelial cells LM Ql (Urine sed) RARE Normal NONE SEEN /RARE [facility] Comment on above: Performed By: #### U MICRO, ERUR, PREGU ####[facility] [address] [address]Dr. Nita Iverson MUCOUS NONE SEEN Normal NONE SEEN [facility] Comment on above: Performed By: #### U MICRO, ERUR, PREGU ####[facility] [address] [address]Dr. Nita Iverson RBC 20-50 Abnormal 0-2 [facility] Comment on above: Performed By: #### U MICRO, ERUR, PREGU ####[facility] [address] [address]Dr. Nita Iverson WBC 2-5 Abnormal NONE SEEN [facility] Comment on above: Performed By: #### U MICRO, ERUR, PREGU ####[facility] [address] [address]Dr. Nita Iverson US THYROIDon 09-06-2022 US THYROID [...] PREET RODRIGEZ Date: 2022-09-06 20:19 Normal [facility] MRI HIP RT WO CONon 08-19-19 23 MRI HIP RT WO CON EXAM: MRI HIP RT WO CON HISTORY: Right hip pain COMPARISON: X-rays 07/07/2022 TECHNIQUE: Axial and coronal large xcqks-rf-xfol sequencing through the pelvis and both hips. Small wjkrs-ba-sakh coronal, sagittal and axial sequencing through the [...] at approximately the 11:00 position (coronal small fwntn-bk-rjgj 14). The remainder of the labrum exhibits no gross irregularity. The left acetabulum is normal. The bilateral femoral head and acetabular cartilage exhibits no chondral or osteochondral irregularity. The pubic symphysis and sacroiliac joints are normal. Thickening and interstitial edema of the right gluteus medius tendon insertion to the greater trochanter (coronal small vfhjw-wn-robl 13 and axial large oxyms-xz-xluq 23). Mild amount of adjacent edema. No abnormal bursal fluid collection. Questionable mild thickening and interstitial edema of the left gluteus minimus tendon (coronal large qcvpy-qk-rcbe 17 and axial large etsek-ri-fiav 23 and to a lesser degree the gluteus medius tendon (coronal large jnmol-lv-uwyc 21). No tendon tear, tendon tear or [...] by: PAULETTE PHIPPS Date: 2022-08-18 22:39 Normal [facility] PAP ACOG PANEL 2: 30 to 65on 08-11-2022 . . Normal [facility] Comment on above: Result Comment: Perf ormed at: WB Performed By: #### [id number] ####[facility] [address] [id number] Iverson Age Gdln ACOG Testing 30-65 Normal [facility] Comment on above: Performed By: #### [id number] ####[facility] [address] [id number] Iverson DIAGNOSIS: Comment Normal [facility] Comment on above: Result Comment: NEGA TIVE FOR INTRAEPITHELIAL LESION OR MALIGNANCY. Performed at: WB Performed By: #### [id number] ####[facility] [address] [id number] Iverson HPV Aptima Negative Normal Negative [facility] Comment on above: Result Comment: This nucleic acid amplification test detects fourteen high-risk HPV types (16,18,31,33,35,39,45,51,52,56,58,59,66,68) without differentiation. Performed at: =G Performed By: #### [id number] ####[facility] [address] [address]DrMaribel Iverson HPV Genotype Reflex Comment Normal [facility] Comment on above: Result Comment: Crit eria not met, HPV Genotype not performed. Performed at: WB Performed By: #### [id number] ####[facility] [address] [place], [place] [address]DrMaribel Iverson Methodology: Comment Normal [facility] Comment on above: Result Comment: This liquid based ThinPrep(R) pap test was screened with the use of an image guided system. Performed at: WB Performed By: #### 4 [id number] ####[address] [place] [address]DrMaribel Iverson Note: Comment Normal [facility] Comment on above: Result Comment: The Pap smear is a screening test designed to aid in the detection of premalignant and malignant conditions of the uterine cervix. It is not a diagnostic procedure and should not be used as the sole means of detecting cervical cancer. Both false-positive and false-negative reports do occur. . Performed at: WB Performed By: #### [id number] ####[facility] [address] [place], [place] [address]DrMaribel Iverson Performed by: Comment Normal [facility] Comment on above: Result Comment: Jordana Pruett, Chemical Packager (ASCP) Performed at: WB Performed By: #### [id number] ####[facility] [address] [place], [place] [address]Dr. Nita Iverson Specimen adequacy: Comment Normal [facility] Comment on above: Result Comment: Sati sfactory for evaluation. No endocervical component is identified. Performed at: WB Performed By: #### [id number] ####[facility] [address] [address]DrMaribel Iverson US PELVIS AND TRANSVAGon US PELVIS [...] by: PAULETTE GALVAN Date: 2022-06-06 17:[address] [facility] [address] ABD/PELV WO W CONon 04-25 CT [...] by: PREET RODRIGEZ Date: 2022-04-25 08:09 Normal [facility] NM RENAL W_WO PHARMon 2021 NM RENAL [...] by: PAULETTE GALVAN Date: 2022-03-22 17:23 Normal [facility] XR KUB 1 VIEWon 03-22-2022 XR KUB [...] by: PAULETTE GALVAN Date: 2022-03-22 17:57 Normal [facility] US THYROIDon 03-09-2022 US THYROID EXAMINATION: US [...] IMPRESSION: Multinodular goiter, grossly stable TI-RADS: The [employer] TI-RADS committee's white paper recommendations for thyroid lesions classified as TR4 (moderately suspicious) are listed below: > 1.0 cm. Follow-up ultrasound in 1, 2, 3, and 5 years. > 1.5 cm. FNA. J. Am Rosendo Radiol 2017;14:587-595. Electronically authenticated by: PAULETTE GALVAN Date: 2022-03-09 07:[address] [facility] [address] ABD/PELV WO W CONon 03-07 CT [...] by: PREET RODRIGEZ Date: 2022-03-07 16:45 Normal [facility] MAMM SCREEN 3D GRACIE CADon 02-09-2022 MG MAMM SCREEN 3D GRACIE CAD Patient: STACEY SAHU Exam Date: 02/09/2022 : 1975 Gender:F Ordering : [facility] Admission #: [id number] Family : Order #: [id number] CLICK HERE TO VIEW EXAM RADIOLOGY REPORT [...] colon cancer at age 56. LOCATION: [facility] BREAST COMPOSITION: Scattered areas fibroglandular density. [...] M.D. on 02/09/2022 at 14:53 Normal [facility] Covid-19 PCR (CVDTBH)on SARS-CoV-2 (COVID-19) RNA IZAIAH+probe Ql (Unsp spec) Detected Critically abnormal NOT DETECTED [facility] Comment on above: Result Comment: This test is not yet approved or cleared by the [place] FDA. When there are no FDA-approved or cleared tests available, and other criteria are met, FDA can make tests available under an emergency access mechanism called an Emergency Use Authorization (EUA). The EUA for this test is supported by the [place] of Health and Human Service's declaration that [...] longer be used). Performed By: #### C [facility] #### [facility] [address] [place] [address] Dr. Nita Iverson MR femur RT wo/w radhaon 12-04 MR femur RT wo/w con [facility] [place] [address] MRI Report Signed Patient: Stacey Sahu MR#: [id number] : 1975 Acct:[id number] Age/Sex: 46 / F ADM Date: 12/03/21 Loc: MR Room: Type: [facility] Attending Dr: Alexis Saenz II, [...] Stock Jr., M.D.12/04/2021 3:45 PM Dictation Location: [place] [address] Transcribed By: [facility] 12/04/21 1545 Dictated By: Jorge Luis Stock Jr, MD 12/04/21 1519 Signed By: 12/04/21 1545 Normal [facility] XR femur RT 2V*on 11-17-2021 XR femur RT 2V* [facility] [place] [address] XRay Report Signed Patient: Stacey Sahu MR#: [id number] : 1975 Acct:[id number] Age/Sex: 46 / F ADM Date: 11/17/21 [place] [facility] [place]: Type: [facility] Attending Dr: Alexis Saenz II, MD Ordering Provider: Alexis Saenz MD Date of Service: 11/17/21 XR/XR hip RT min 2V(w/wo pelvis)*: Right hip pain ([id number]) XR/XR femur RT 2V*: Right hip pain [...] M.D.11/17/2021 3:56 PM Dictation Location: [place] [address] Transcribed By: [facility] 11/17/21 1556 Dictated By: Vipin Iniguez DO 11/17/21 1553 Signed By: 11/17/21 1556 [facility] Large Joint Arthro/Inj: R gr eater trochanteric bursa [facility] Vital Signs Date Time Vital Sign Value Performing Clinician Facility 08-28-2024 13:28-0500 Body mass index (BMI) [Ratio] 37.46 kg/m2 Essie Ryan [employer]NER Work Phone: [facility] 08-28-2024 13:28-0500 Body temperature 98.49 [degF] Essie Ryan [employer] Work Phone: [facility] 08-28-2024 13:28-0500 Body weight 87 kg Essie Ryan [employer] Work Phone: [facility] 08-28-2024 13:28-0500 Diastolic blood pressure 86 mm[Hg] Essie Ryan [employer] Work Phone: [facility] 08-28-2024 13:28-0500 Heart rate 111 /min Essie Ryan [employer] Work Phone: [facility] 08-28-2024 13:28-0500 Respiratory rate 18 /min Essie Rolonaishwarya [employer] Work Phone: [facility] 08-28-2024 13:28-0500 SaO2% (BldA) [Mass fraction] 98 % Essie Rolonaishwarya [employer] Work Phone: [facility] 08-28-2024 13:28-0500 Systolic blood pressure 116 mm[Hg] Essie Rolonaishwarya [employer] Work Phone: [facility] 06-05-2024 10:47-0500 Diastolic blood pressure 85 mm[Hg] Pacc 3 Work Phone: [facility] 06-05-2024 10:47-0500 Systolic blood pressure 135 mm[Hg] Pacc 3 Work Phone: [facility] 06-05-2024 10:24-0500 Body height 152.4 cm Pacc 3 Work Phone: [facility] 06-05-2024 10:24-0500 Body mass index (BMI) [Ratio] 37.72 kg/m2 Pacc 3 Work Phone: [facility] 06-05-2024 10:24-0500 Body temperature 97.81 [degF] Pacc 3 Work Phone: [facility] 06-05-2024 10:24-0500 Body weight 87.6 kg Pacc 3 Work Phone: [facility] 06-05-2024 10:24-0500 Heart rate 86 /min Pacc 3 Work Phone: [facility] 06-05-2024 10:24-0500 Respiratory rate 16 /min Pacc 3 Work Phone: [facility] 06-05-2024 10:24-0500 SaO2% (BldA) [Mass fraction] 96 % Pacc 3 Work Phone: [facility] 05-29-2024 14:40-0500 Body height 152.4 cm Essie Ryan [employer] Work Phone: [facility] 05-29-2024 14:40-0500 Body mass index (BMI) [Ratio] 38.04 kg/m2 Essie Ryan [employer] Work Phone: [facility] 05-29-2024 14:40-0500 Body temperature 98.1 [degF] Essie Ryan [employer] Work Phone: [facility] 05-29-2024 14:40-0500 Body weight 88.36 kg Essie Ryan [employer] Work Phone: [facility] 05-29-2024 14:40-0500 Diastolic blood pressure 86 mm[Hg] Essie Ryan [employer] Work Phone: [facility] 05-29-2024 14:40-0500 Heart rate 94 /min Essie Ryan [employer] Work Phone: [facility] 05-29-2024 14:40-0500 Respiratory rate 18 /min Essie Ryan [employer] Work Phone: [facility] 05-29-2024 14:40-0500 SaO2% (BldA) [Mass fraction] 98 % Essie Ryan [employer] Work Phone: [facility] 05-29-2024 14:40-0500 Systolic blood pressure 110 mm[Hg] Essie Ryan [employer] Work Phone: [facility] 04-10-2024 08:36-0400 Body height 152.4 cm Essie Ryan [employer] Work Phone: [facility] 04-10-2024 08:36-0400 Body mass index (BMI) [Ratio] 38.16 kg/m2 Essie Ryan [employer] Work Phone: [facility] 04-10-2024 08:36-0400 Body temperature 98.8 [degF] Essielisa Ryan [employer] Work Phone: [facility] 04-10-2024 08:36-0400 Body weight 88.63 kg Essie Ольгаholz [employer] Work Phone: [facility] 04-10-2024 08:36-0400 Diastolic blood pressure 88 mm[Hg] Essie Aichholz [employer] Work Phone: [facility] [facility] 04-10-2024 08:36-0400 Heart rate 96 /min Essie Aichholz SHANK TURNER Work Phone: [facility] 04-10-2024 08:36-0400 Respiratory rate 18 /min Essie Aichholz SHANK TURNER Work Phone: [facility] 04-10-2024 08:36-0400 SaO2% (BldA) [Mass fraction] 98 % Essie Charlihholz SHANK TURNER Work Phone: [facility] 04-10-2024 08:36-0400 Systolic blood pressure 120 mm[Hg] Essie Aichholz SHANK TURNER Work Phone: [facility] 02-29-2024 08:38-0400 Body height 152.4 cm Essie Aichholz SHANK TURNER Work Phone: [facility] 02-29-2024 08:38-0400 Body mass index (BMI) [Ratio] 38.28 kg/m2 Essie Charlihholz SHANK TURNER Work Phone: [facility] 02-29-2024 08:38-0400 Body temperature 97.81 [degF] Essie Charlihholz SHANK TURNER Work Phone: [facility] 02-29-2024 08:38-0400 Body weight 88.91 kg Essie Aichholz SHANK TURNER Work Phone: [facility] 02-29-2024 08:38-0400 Diastolic blood pressure 88 mm[Hg] Essie Aichholz SHANK TURNER Work Phone: [facility] 02-29-2024 08:38-0400 Heart rate 97 /min Essie Aichholz SHANK TURNER Work Phone: [facility] 02-29-2024 08:38-0400 Respiratory rate 18 /min Essie Shelby SHANK TURNER Work Phone: [facility] 02-29-2024 08:38-0400 SaO2% (BldA) [Mass fraction] 98 % Essie Augustindilcia SHANK TURNER Work Phone: [facility] 02-29-2024 08:38-0400 Systolic blood pressure 122 mm[Hg] Essie Shelby SHANK TURNER Work Phone: [facility] 11-28-2023 09:08-0400 Blood Pressure Location LESLIE ANGELICA [facility] 11-28-2023 09:08-0400 Diastolic blood pressure 84 mm[Hg] LESLIE ANGELICA [facility] 11-28-2023 09:08-0400 Heart rate 82 /min LESLIE ANGELICA [facility] 11-28-2023 09:08-0400 Respiratory rate 16 /min LESLIE ANGELICA [facility] 11-28-2023 09:08-0400 Systolic blood pressure 139 mm[Hg] LESLIE ANGELICA [facility] 05-29-2023 14:39-0500 Blood Pressure Location Jose GARCIA [facility] 05-29-2023 14:39-0500 Diastolic blood pressure 83 mm[Hg] Jose GARCIA [facility] 05-29-2023 14:39-0500 Heart rate 88 /min Jose GARCIA [facility] 05-29-2023 14:39-0500 Respiratory rate 16 /min Jose GARCIA [facility] 05-29-2023 14:39-0500 Systolic blood pressure 131 mm[Hg] Jose GARCIA [facility] 11-24-2022 13:48-0400 Diastolic blood pressure 106 mm[Hg] Beth SALAM [facility] 11-24-2022 13:48-0400 Mean blood pressure 121 mm[Hg] Beth SALAM [facility] 11-24-2022 13:48-0400 Systolic blood pressure 152 mm[Hg] Beth SALAM [facility] 11-24-2022 13:46-0400 Blood Pressure Location Beth SALAM [facility] 11-24-2022 13:46-0400 Diastolic blood pressure 118 mm[Hg] Beth SALAM [facility] 11-24-2022 13:46-0400 Heart rate 80 /min Beth SALAM [facility] 11-24-2022 13:46-0400 Respiratory rate 16 /min Beth SALAM [facility] 11-24-2022 13:46-0400 Systolic blood pressure 161 mm[Hg] Beth SALAM [facility] 04-26-2022 12:03-0400 Blood Pressure Location Jose GARCIA [facility] 04-26-2022 12:03-0400 Diastolic blood pressure 95 mm[Hg] Jose GARCIA [facility] 04-26-2022 12:03-0400 Heart rate 102 /min Jose GARCIA [facility] 04-26-2022 12:03-0400 Systolic blood pressure 141 mm[Hg] Jose GARCIA [facility] 02-21-2022 12:39-0400 Body weight 88.81 kg Shiraz Roy DO Work Phone: [facility] 02-21-2022 12:39-0400 Diastolic blood pressure 85 mm[Hg] Shiraz Sykesis DO Work Phone: [facility] 02-21-2022 12:39-0400 Heart rate 76 /min Shiraz Sykesis DO Work Phone: [facility] 02-21-2022 12:39-0400 Systolic blood pressure 138 mm[Hg] Shiraz Sykesis DO Work Phone: [facility] 12-09-2021 09:00-0400 Body height 160.02 cm Alexis Harris II Other [facility] Other 12-09-2021 09:00-0400 Body mass index (BMI) [Ratio] 34.47 kg/m2 Alexis Harris II Other [facility] Other 12-09-2021 09:00-0400 Body weight 88.27 kg Alexis Dany II Other [facility] Other 11-17-2021 15:30-0400 Body height 160.02 cm Alexis Harris II Other [facility] Other 11-17-2021 15:30-0400 Body mass index (BMI) [Ratio] 32.41 kg/m2 Alexis Dany II Other [facility] Other 11-17-2021 15:30-0400 Body weight 83.01 kg Alexis Saenz II Other [facility] Other Encounters Encounter Date Encounter Type Care Provider Facility Start: 08-28-2024 End: 08-28-2024 Bamboo flowsheet Essie Ryan SHANK TURNER Work Phone: [facility] Start: 08-28-2024 End: 08-28-2024 Bamboo flowsheet Essielisa Ryan SHANK TURNER Work Phone: [facility] Start: 08-28-2024 End: 08-28-2024 Office outpatient visit 25 minutes Essie Ryan SHANK TURNER Work Phone: [facility] Comment on above: Anxiety (Primary Dx) ; Morbid (severe) obesity due to excess calories (CMS/HCC); Mixed hyperlipidemia (CMS/HCC); Body mass index (BMI) 38.0-38.9, adult; Bipolar disorder, unspecified (CMS/HCC); Pulmonary hypertension, unspecified (CMS/HCC); Crohn's disease of both small and large intestine without complications (CMS/HCC); NIRMALA (obstructive sleep apnea); PAH (pulmonary artery hypertension) (CMS/HCC); Gastro-esophageal reflux disease without esophagitis; S/P total right hip arthroplasty; Encounter for screening mammogram for malignant neoplasm of breast; Gastroesophageal reflux disease, unspecified whether esophagitis present; Dizziness and giddiness Start: 08-22-2024 End: 08-22-2024 Evaluation and management of inpatient JEFF Chavez [facility] Start: 07-30-2024 End: 07-30-2024 Patient encounter procedure Lois Mckeon MD Work Phone: Orthopaedics Comment on above: Pain of right hip (P rimary Dx) Start: 07-30-2024 End: 07-30-2024 Clinisync Result Encounter Generic External Data Provider [facility] External Department Unsolicited Start: 07-30-2024 End: 07-30-2024 Clinisync Result Encounter Generic External Data Provider [facility] External Department Unsolicited Start: 07-30-2024 End: 07-30-2024 ambulatory LOIS Garcia MIKE Facility:[facility] Start: 07-30-2024 End: 07-30-2024 Subsequent hospital visit by physician Xr [facility] Louie Work Phone: Radiology Comment on above: oa Start: 07-23-2024 End: 07-23-2024 ambulatory [facility] Start: 07-01-2024 End: 07-01-2024 ambulatory LOIS Garcia MIKE Facility:[facility] Start: 06-08-2024 End: 06-11-2024 Clinisync Result Encounter Generic External Data Provider [facility] External Department Unsolicited Start: 06-08-2024 End: 06-11-2024 Clinisync Result Encounter Generic External Data Provider [facility] External Department Unsolicited Start: 06-05-2024 End: 06-06-2024 Clinisync Result Encounter Generic External Data Provider [facility] External Department Unsolicited Start: 06-05-2024 End: 06-06-2024 Clinisync Result Encounter Generic External Data Provider [facility] External Department Unsolicited Start: 06-05-2024 End: 06-05-2024 Admission to establishment Pacc [facility] Viridiana 3 Work Phone: Pre Anesthesia Start: 06-05-2024 End: 06-05-2024 ambulatory NEGRITA TEJEDA Facility:[facility] Start: 06-05-2024 End: 06-05-2024 Anesthesia consultation Pac 3 Work Phone: Pre Anesthesia Comment on above: Pre-op evaluation (P rimary Dx); NIRMALA (obstructive sleep apnea); Gastroesophageal reflux disease, unspecified whether esophagitis present; Pulmonary HTN (HCC); Other hyperlipidemia; BMI 37.0-37.9, adult Start: 06-05-2024 Encounter for other preprocedural examination LOIS MCKEON [facility] Start: 06-05-2024 End: 06-05-2024 Preprocedural examination done Pac 3 Work Phone: [facility] Work Phone: Start: 05-29-2024 End: 05-29-2024 Office outpatient visit 25 minutes Essie Ryan SHANK TURNER Work Phone: [facility] Comment on above: Bipolar 1 disorder ( CMS/HCC) (Primary Dx); NIRMALA (obstructive sleep apnea); PAH (pulmonary artery hypertension) (CMS/HCC); Chronic right hip pain; Morbid (severe) obesity due to excess calories (CMS/HCC); Anxiety; Chronic rhinitis; Body mass index (BMI) 38.0-38.9, adult Start: 05-29-2024 End: 05-29-2024 Bamboo flowsheet Essie Ryan SHANK TURNER Work Phone: [facility] Start: 05-29-2024 End: 05-29-2024 Bamboo flowsheet Essie Ryan SHANK TURNER Work Phone: [facility] Start: 05-24-2024 End: 05-24-2024 Admission to same day surgery center Lois Mckeon MD Work Phone: Orthopaedics Comment on above: Schedule Surgery Start: 05-24-2024 End: 05-24-2024 ambulatory Lois Mckeon MD Work Phone: Orthopaedics Start: 05-17-2024 End: 05-17-2024 ambulatory [facility] Start: 05-09-2024 End: 06-01-2024 Telephone encounter Lois Mckeon MD Work Phone: Orthopaedics Comment on above: Question (See note) Start: 05-09-2024 End: 05-09-2024 Evaluation and management of inpatient [facility] Start: 05-09-2024 End: 05-09-2024 Evaluation and management of inpatient [facility] Start: 05-06-2024 End: 05-06-2024 Evaluation and management of inpatient ESSIE Magdaleno [facility] Start: 04-19-2024 End: 04-19-2024 ambulatory [facility] Start: 04-16-2024 End: 04-16-2024 ambulatory LOIS MCKEON Facility:[facility] Start: 04-16-2024 End: 04-16-2024 Patient encounter procedure Lois Mckeon MD Work Phone: Orthopaedics Comment on above: Primary osteoarthrit is of right hip (Primary Dx); Status post right hip replacement Start: 04-10-2024 End: 04-10-2024 Bamboo flowsheet Essielisa Ryan SHANK TURNER Work Phone: [facility] Start: 04-10-2024 End: 04-10-2024 Bamboo flowsheet Essielisa Ryan SHANK [employer]URNER Work Phone: [facility] Start: 04-10-2024 End: 04-10-2024 Office outpatient visit 25 minutes Essie Ryan SHANK [employer]URNER Work Phone: [facility] Comment on above: Bipolar disorder, un specified (CMS/HCC) (Primary Dx); Neuritis of right median nerve; Neuritis of left median nerve; Morbid (severe) obesity due to excess calories (CMS/HCC); Body mass index (BMI) 38.0-38.9, adult; Anxiety; PAH (pulmonary artery hypertension) (CMS/HCC); Chronic rhinitis; Gastroesophageal reflux disease, unspecified whether esophagitis present; Needs flu shot Start: 04-10-2024 End: 04-10-2024 ambulatory ESSIE CHARLIJenniferSIENAZ Not Available Start: 03-19-2024 End: 03-19-2024 Patient encounter procedure Lois Mckeon MD Work Phone: Orthopaedic Surgery [facility] Comment on above: Pain of right hip (P rimary Dx); Primary osteoarthritis of right hip Start: 03-19-2024 End: 03-19-2024 ambulatory LOIS MCKEON Facility:[facility] Start: 03-19-2024 End: 03-19-2024 Subsequent hospital visit by physician Jose A [facility] 1 Xray [facility] Comment on above: Pain in right hip [M 25.551] Start: 03-18-2024 End: 03-22-2024 Telephone encounter Lois Mckeon MD Work Phone: Orthopaedic Surgery [facility] Start: 03-06-2024 End: 03-06-2024 Clinisync Result Encounter Generic External Data Provider [facility] External Department Unsolicited Start: 03-06-2024 End: 03-06-2024 Clinisync Result Encounter Generic External Data Provider [facility] External Department Unsolicited Start: 03-06-2024 End: 03-06-2024 ambulatory ALEXANDREA HOLDEN [facility] Start: 03-06-2024 End: 03-06-2024 ambulatory TINOFAY LASSITER [facility] Start: 02-29-2024 End: 02-29-2024 Bamboo flowsheet Essie Ryan [employer]ANK [employer]URNER Work Phone: [facility] Start: 02-29-2024 End: 02-29-2024 Bamboo flowsheet Essie Ryan SHANK TURNER Work Phone: [facility] Start: 02-29-2024 End: 02-29-2024 Office outpatient visit 25 minutes Essie Ryan [employer]ANK [employer]URNER Work Phone: [facility] Comment on above: Bipolar disorder, cu rrent episode mixed, moderate (CMS/HCC) (Primary Dx); Chronic rhinitis; Gastroesophageal reflux disease, unspecified whether esophagitis present; BMI 38.0-38.9,adult; Neuritis of left median nerve; Neuritis of right median nerve; Bipolar disorder, unspecified (CMS/HCC) Start: 02-29-2024 End: 02-29-2024 ambulatory ESSIE AICHHOLZ Not Available Start: 01-30-2024 End: 01-30-2024 ambulatory ESSIE AICHHOLZ Not Available Start: 12-13-2023 End: 12-14-2023 ambulatory JOSIAS LOPEZ Not Available Start: 12-11-2023 End: 12-13-2023 ambulatory TINO ANA Not Available Start: 12-04-2023 End: 12-05-2023 ambulatory TINO IVANAY Not Available Start: 11-30-2023 End: 12-01-2023 ambulatory TINO IVANAY Not Available Start: 11-28-2023 End: 11-29-2023 ambulatory JOSIAS LOPEZ Not Available Start: 11-28-2023 End: 11-28-2023 ambulatory LESLIE JUNG Facility:[facility] Start: 11-28-2023 End: 11-28-2023 Patient encounter procedure LESLIE JUNG [facility] Start: 11-23-2023 End: 11-24-2023 ambulatory KOLE FULTON Not Available Start: 11-21-2023 End: 11-22-2023 ambulatory JAMIE RANDHAWA Not Available Start: 11-16-2023 End: 11-16-2023 ambulatory JAMIE RANDHAWA Not Available Start: 11-08-2023 End: 11-08-2023 ambulatory SHAIKH DESTINWAD Not Available Start: 11-08-2023 End: 11-08-2023 ambulatory JANET MODI Not Available Start: 10-25-2023 End: 10-25-2023 ambulatory LUNDBERG FAWWAD Not Available Start: 09-28-2023 End: 09-28-2023 ambulatory ESSIE AICHHOLZ Not Available Start: 09-12-2023 End: 09-12-2023 [facility] Start: 09-06-2023 End: 09-06-2023 ambulatory NEDA GARZONRivera Not Available Start: 09-01-2023 End: 09-02-2023 ambulatory [facility] Adam [facility] Start: 08-29-2023 End: 08-29-2023 ambulatory TINO [facility] Start: 08-26-2023 End: 08-26-2023 ambulatory MARY DANIELS Not Available Start: 08-21-2023 End: 08-21-2023 ambulatory [facility] Start: 07-13-2023 End: 07-13-2023 ambulatory ESSIE AICHHOLZ Not Available Start: 07-11-2023 End: 07-11-2023 ambulatory Juliana Block Other [facility] Other Start: 07-11-2023 Office outpatient vi sit 25 minutes Juliana [facility] Start: 07-04-2023 End: 07-04-2023 ambulatory ESSIE RYAN Not Available Start: 06-28-2023 End: 06-28-2023 ambulatory EVANS LANGELUNA [facility] Start: 05-29-2023 End: 05-29-2023 ambulatory Jose GARCIA Facility:[facility] Start: 05-29-2023 End: 05-29-2023 Patient encounter procedure Jose GARCIA [facility] Start: 05-10-2023 End: 05-10-2023 ambulatory NEDA CACERES Not Available Start: 02-02-2023 End: 02-02-2023 [facility] Start: 02-02-2023 End: 02-02-2023 [facility]ulatory [facility] Start: 02-02-2023 End: 02-02-2023 Lab Drop off Beth SALAM [facility] Start: 02-01-2023 End: 02-01-2023 ambulatory Beth SALAM Facility:[facility] Start: 02-01-2023 End: 02-01-2023 Patient encounter procedure Beth SALAM [facility] Start: 01-05-2023 End: 01-05-2023 ambulatory Beth SALAM Facility:[facility] Start: 01-03-2023 End: 01-03-2023 ambulatory Beth SALAM Facility:[id number] Start: 12-06-2022 End: 12-06-2022 ambulatory Beth SALAM Facility:[facility] Start: 12-06-2022 End: 12-06-2022 Patient encounter procedure Beth SALAM [facility] Start: 11-24-2022 End: 11-24-2022 Patient encounter procedure Ignacia KHAN [facility] Start: 11-22-2022 End: 11-23-2022 ambulatory CAN VALERA Facility:[facility] Start: 11-08-2022 ambulatory BYRON GARCIA . Facility:[facility] Start: 10-26-2022 End: 10-27-2022 ambulatory NIURKA RYAN Facility:[facility] Start: 10-18-2022 End: 10-18-[address] NEDA CACERES Facility:[facility] Start: 10-04-2022 End: 10-05-[address] NEDA CACERES Facility:[facility] Start: 09-21-2022 End: 09-22-2022 ambulatory EDNA MRCAE . Facility:[facility] Start: 09-06-2022 End: 09-07-2022 ambulatory [...] encounter procedure Jose GARCIA [facility] Start: 04-22-2022 End: 04-23-2022 ambulatory NIURKA RYAN Facility:[facility] Start: 03-29-2022 End: 03-30-[address] MARKO MORALES . Facility:[facility] Start: 03-22-2022 End: 03-23-2022 ambulatory NIURKA RYAN Facility:[facility] Start: 03-22-2022 End: 03-23-[address] MARKO MORALES . Facility:[facility] Start: 03-08-2022 End: 03-09-[address] NEDA CACERES Facility:[facility] Start: 03-08-2022 End: 03-08-2022 Patient encounter procedure Jose Javy GARCIA [facility] Start: 03-07-2022 End: 03-08-2022 ambulatory NIURKA [...] End: 01-05-2022 ambulatory Alexis Saenz II Other [employer] Other Start: 01-05-2022 Telephone encounter Alexis Saenz II [facility] Start: 12-31-2021 End: 12-31-2021 Patient encounter procedure Jorge Luis Page DO Work Phone: Orthopaedics Comment on above: Trochanteric bursiti s of right hip (Primary Dx) Start: 12-09-2021 End: 12-09-2021 ambulatory Alexis Harris II Other [facility] Other Start: 12-09-2021 Office outpatient vi sit 25 minutes Alexis Harris II [facility] Start: 11-17-2021 End: 11-17-2021 ambulatory Alexis Harris II Other [employer] Other Start: 11-17-2021 Office outpatient ne w 45 minutes Alexis Harris II [facility] Start: 06-02-2017 End: 06-03-2017 Ambulatory DEFAULT PHYSICIAN Facility:[facility] Start: 05-15-2017 End: 05-16-2017 Ambulatory DEFAULT PHYSICIAN Facility:[facility] Start: 05-01-2017 End: 05-02-2017 Ambulatory DEFAULT PHYSICIAN Facility:[facility] Procedures Date Procedure Procedure Detail Performing Clinician Start: 07-30-2024 Radex hip unilateral with pelvis 2-3 views Mayito Gifford PA-C Work Phone: Start: 07-30-2024 XR HIP 3V PELV+ AP/LAT RT Generic External Data Provider Start: 06-08-2024 Bacteria identified in Urine by Culture Generic External Data Provider Start: 06-05-2024 [facility] CBC W AUTO DIFF BLD Generic External Data Provider Start: 06-05-2024 Ecg routine ecg w/le ast 12 lds i&r only Negrita Tejeda [employer] 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: Start: 03-19-2024 Radex hip unilateral with pelvis 2-3 views Mayito Gifford PA-C Work Phone: Start: 03-06-2024 ALL LIPID PROFILE (FASTING) Generic External Data Provider Start: 03-06-2024 [facility] LIVER PANEL Generi c External Data Provider Start: 08-17-2023 Mammography Essie Nawaf cristina SHANK TURNER Work Phone: Start: 12-24-2022 Lobectomy of thyroid [...] (1 of 3 - Risk 3-dose series) [facility] Start: 06-05-2027 Diabetes Screening Diabetes Screening [facility] Start: 10-01-2024 End: 10-01-2024 Patient encounter procedure 10/01/2024 1:20 PM EDT Office Visit Orthopaedics [id number] [place] [address] Lois Mckeon MD [address] [place], [place] [id number] 2mo follow up - DOS 07/01/24 Orthopaedics Comment on above: 2mo follow up - DOS 07/01/24 Start: 09-30-2024 End: 09-30-2024 Patient encounter procedure 09/30/2024 1:20 PM EDT [facility] [address] [place] [id number] Essie Ryan NP [address] [place] [id number] [facility] Start: 08-28-2024 End: 08-28-2025 CBC W Auto Differential panel - Blood CBC and differential Lab Routine Dizziness and giddiness Expected: 08/28/2024 (Approximate), Expires: 08/28/2025 [facility] Comment on above: Expected: 08/28/2024 (Approximate), Expi res: 08/28/2025 Start: 08-28-2024 End: 08-28-2025 Comprehensive metabolic 2000 panel - Serum or Plasma Comprehensive metabolic panel Lab Routine Dizziness and giddiness Expected: 08/28/2024 (Approximate), Expires: 08/28/2025 [facility] Comment on above: Expected: 08/28/2024 (Approximate), Expi res: 08/28/2025 Start: 08-28-2024 End: 08-28-2025 Ferritin [Mass/volume] in Serum or Plasma Ferritin Lab Routine Dizziness and giddiness Expected: 08/28/2024 (Approximate), Expires: 08/28/2025 [facility] Comment on above: Expected: 08/28/2024 (Approximate), Expi res: 08/28/2025 Start: 08-28-2024 End: 08-28-2025 Iron + transferrin + TIBC Iron + transferrin + TIBC Lab Routine Dizziness and giddiness Expected: 08/28/2024 (Approximate), Expires: 08/28/2025 [facility] Comment on above: Expected: 08/28/2024 (Approximate), Expi res: 08/28/2025 Start: 08-28-2024 End: 08-28-2025 Lipid 1996 panel - Serum or Plasma Lipid panel Lab Routine Mixed hyperlipidemia (CMS/HCC) Expected: 08/28/2024 (Approximate), Expires: 08/28/2025 [facility] Comment on above: Expected: 08/28/2024 (Approximate), Expi res: 08/28/2025 Start: 08-28-2024 End: 10-28-2025 MG Breast - bilateral Screening Bilateral screening mammogram Imaging Routine Encounter for screening mammogram for malignant neoplasm of breast Expected: 08/28/2024 (Approximate), Expires: 10/28/2025 [facility] Work Phone: Comment on above: Expected: 08/28/2024 (Approximate), Expi res: 10/28/2025 Start: 08-28-2024 End: 08-28-2024 Patient encounter procedure [facility] Comment on above: NIRMALA (obstructive sleep apnea) (Primary D x); Morbid (severe) obesity due to excess calories ([facility]/HCC); Mixed hyperlipidemia (CMS/HCC); Body mass index (BMI) 38.0-38.9, adult; Bipolar disorder, unspecified (CMS/HCC); Pulmonary hypertension, unspecified (CMS/HCC); Crohn's disease of both small and large intestine without complications (CMS/HCC); PAH (pulmonary artery hypertension) ([facility]); Gastro-esophageal reflux disease without esophagitis; S/P total right hip arthroplasty; Encounter for screening mammogram for malignant neoplasm of breast Start: 08-17-2024 Screening for malignant neoplasm of breast Mammogram [facility] Start: 07-30-2024 End: 07-30-2024 Patient encounter procedure Radiology Comment on above: post op xray right hip Surgical post op Start: 07-01-2024 End: 07-01-2024 Admission to same day surgery center 07/01/2024 4:32 PM EST - 07/01/2024 6:47 PM EST Surgery [facility] [address] [place] [address] Lois Mckeon MD [address] [place] [address] ARTHROPLASTY REPLACE JOINT TOTAL HIP [facility] Comment on above: ARTHROPLASTY REPLACE JOINT TOTAL HIP Start: 07-01-2024 End: 07-01-2024 Arthrp acetblr/prox fem prostc agrft/algrft ARTHROPLASTY REPLACE JOINT TOTAL HIP Primary osteoarthritis of right hip 07/01/2024 4:32 PM EST [facility] Start: 07-01-2024 Subsequent hospital visit by physician 07/01/2024 4:32 PM EST Hospital Encounter [facility] [address] [place] [id number] Lois Mckeon MD [address] [place] [id number] Primary osteoarthritis of right hip [M16.11] [facility] Comment on above: Primary osteoarthritis of right hip [M16 .11] Start: 06-05-2024 End: 09-04-2024 Basic metabolic 2000 panel - Serum or Plasma [facility] Comment on above: Expected: 06/05/2024, Expires: Start: 06-05-2024 End: 09-04-2024 CBC W Auto Differential panel - Blood [facility] Work Phone: Comment on above: Expected: 06/05/2024, Expires: Start: 06-05-2024 End: 09-04-2024 Ferritin [Mass/volume] in Serum or Plasma [facility] Comment on above: Expected: 06/05/2024, Expires: Start: 06-05-2024 End: 09-04-2024 Iron and Iron binding capacity panel - Serum or Plasma [facility] Comment on above: Expected: 06/05/2024, Expires: Start: 06-05-2024 End: 06-05-2024 Anesthesia consultation 06/05/2024 10:30 AM EST PAT Pre Anesthesia [address] [place] [address] ARTHROPLASTY REPLACE JOINT TOTAL HIP [3131] - Hip - Right Pre Anesthesia Comment on above: ARTHROPLASTY REPLACE JOINT TOTAL HIP [31 31] - Hip - Right Start: 05-29-2024 End: 05-29-2024 Patient encounter procedure 05/29/2024 2:20 PM EST Office Visit [facility] [address] [place] [address] Essie Ryan NP [address] [place] [address] NIRMALA (obstructive sleep apnea) (Primary Dx); PAH (pulmonary artery hypertension) (CMS/HCC); Chronic right hip pain; Morbid (severe) obesity due to excess calories (CMS/HCC); Bipolar 1 disorder (CMS/HCC); Anxiety [facility] Comment on above: NIRMALA (obstructive sleep apnea) (Primary D x); PAH (pulmonary artery hypertension) (CMS/HCC); Chronic right hip pain; Morbid (severe) obesity due to excess calories (CMS/HCC); Bipolar 1 disorder (CMS/[facility]); Anxiety Start: 05-21-2024 End: 05-21-2024 Patient encounter procedure 05/21/2024 9:00 AM EST Office Visit [facility] [address] [place] [address] Essie Ryan, SHANK TURNER [address] [place] [phone] [facility] Start: 04-16-2024 End: 04-16-2024 Patient encounter procedure 04/16/2024 1:10 PM EDT Office Visit Orthopaedics [address] [place] [address] Lois Mckeon MD [address] [address] MRI follow up Orthopaedics Comment on above: MRI follow up Start: 04-10-2024 End: 04-10-2024 Patient encounter procedure [facility] Comment on above: Arrived Start: 02-29-2024 End: 02-29-2024 Patient encounter procedure 02/29/2024 8:40 AM EDT Office Visit [facility] [address] [place] [phone] Essie Ryan, NETO [address] [place] [address] Chronic rhinitis; Gastroesophageal reflux disease, unspecified whether esophagitis present [facility] Comment on above: Chronic rhinitis; Gastroesophageal reflux disease, unspecified whether esophagitis present Start: 02-25-2024 Covid-19 Vaccine ( season) Covid-19 Vaccine ( season) [facility] Start: 02-25-2024 Influenza vaccination Influenza Vaccine (#1) [facility] Start: 12-15-2023 DIABETES SCREEN DIABETES SCREEN [facility] Start: 12-15-2023 Diabetes Screening Diabetes Screening [facility] Start: 08-04-2023 Screening for malignant neoplasm of breast Mammogram Screening [facility] Start: 02-14-2023 Adult depression screening assessment DEPRESSION SCREENING [facility] Start: 02-24-2022 Influenza vaccination INFLUENZA (#1) [facility] Start: 12-15-2021 Colonoscopy COLONOSCOPY [facility] Start: 12-15-2021 COLORECTAL CANCER SCREENING COLORECTAL CANCER SCREENING [facility] Start: 12-15-2021 Screening for malignant neoplasm of colon [facility] Start: 2021 COLOGUARD (FIT-DNA) COLOGUARD (FIT-DNA) [facility] Start: [address] COLONOGRAPHY [facility] Start: 2021 FECAL OCCULT BLOOD FECAL OCCULT BLOOD [facility] Start: 2021 Lipid panel Lipid Screening [facility] Start: 2021 LIPID SCREEN LIPID SCREEN [facility] Start: 2021 Screening for malignant neoplasm of colon [facility] Start: 2021 SIGMOIDOSCOPY SIGMOIDOSCOPY [facility] Start: 2016 Mammography MAMMOGRAM [facility] Start: 2006 HPV TESTING HPV TESTING [facility] Start: 2006 Screening for malignant neoplasm of cervix HPV/C[facility]est [facility] Start: 1997 PAP TESTING PAP TESTING [facility] Start: 1997 Screening for malignant neoplasm of cervix [facility] Start: 1995 HEPATITIS B (1 of 3 - Risk 3-dose series) HEPATITIS B (1 of 3 - Risk 3-dose series) [facility] Start: 1995 Hepatitis B Vaccine (1 of 3 - 19+ 3-dose series) Hepatitis B Vaccine (1 of 3 - 19+ 3-dose series) [facility] Start: 1995 Urine microalbumin profile [facility] Start: 1994 Anxiety Screening Anxiety Screening [facility] Start: 1994 Depression Screening Depression Screening [facility] Start: 1994 HIV SCREENING HIV SCREENING [facility] Start: 1994 HIV screening HIV Screening [facility] Start: 1994 MMR (1 of 2 - Risk 2-dose series) MMR (1 of 2 - Risk 2-dose series) [facility] Start: 1988 Adult depression screening assessment DEPRESSION SCREENING [facility] Start: 1986 MENINGOCOCCAL B: Consider based on risk (1 of 4 - Increased Risk Bexsero 2-dose series) MENINGOCOCCAL B: Consider based on risk (1 of 4 - Increased Risk Bexsero 2-dose series) [facility] Start: 1977 HEPATITIS A (1 of 2 - Risk 2-dose series) HEPATITIS A (1 of 2 - Risk 2-dose series) [facility] Start: 1976 COVID-19 VACCINE (#1) COVID-19 VACCINE (#1) [facility] ECG COMPLETE ECG COMPLETE ECG Routine Pre-op evaluation 06/05/2024 10:36 AM EST [facility] End: 04-18-2025 MR Hip - right WO contrast MRI HIP WO IVCON RIGHT Radiology Routine Pain of right hip 1 Occurrences starting 03/19/2024 until 04/18/2025 [facility] Work Phone: Comment on above: 1 Occurrences starting 03/19/2024 until 04[facility] Immunization Date Immunization Notes Care Provider [facility] 05-03-2012 influenza virus vaccine, whole virus Essie Ryan SHANK TURNER Work Phone: [facility] 05-03-2012 influenza, whole Jose CHRISTOPHER ERS [facility] 05-03-2012 influenza virus vaccine, unspecified formulation Lois Mckeon MD Work Phone: [facility] Payers Date Payer Category Payer Unknown [id number] 2023 Private Health Insurance [id number] 2020 Medicaid [facility] MEDICAID [facility] [employer] MEDICAID [id number] 2020-Present [phone] [address] [place] [address] Medicaid [id number] 2020 Medicaid [id number] 1976 Unknown [id number] 2.16.840.1.577412.3.579.2. 593 1976 Unknown [id number] 2.16.840.1.987122.3.579.2. 593 1976 Unknown [id number] 2.16.840.1.975409.3.579.2. 593 1976 Unknown [id number] 2.16.840.1.634812.3.579.2. 593 1976 Unknown [id number] 2.16.840.1.269273.3.579.2. 593 1976 Unknown [id number] 2.16.840.1.584659.3.579.2. 593 1976 Unknown [id number] 2.16.840.1.229298.3.579.2. 593 1976 Unknown [id number] 2.16.840.1.483868.3.579.2. 593 1976 Unknown [id number] 2.16.840.1.090016.3.579.2. 593 1976 Unknown [id number] 2.16.840.1.601845.3.579.2. 593 1976 Unknown [id number] 2.16.840.1.374366.3.579.2. 593 1976 Unknown [id number] 2.16.840.1.724036.3.579.2. 593 1976 Unknown [id number] 2.16.840.1.858630.3.579.2. 593 1976 Unknown [id number] 2.16.840.1.346478.3.579.2. 593 1976 Unknown [id number] 2.16.840.1.671957.3.579.2. 593 1976 Unknown [id number] 2.16.840.1.117131.3.579.2. 593 1976 Unknown [id number] 2.16.840.1.229912.3.579.2. 593 1976 Unknown [id number] 2.16.840.1.828458.3.579.2. 593 1976 Unknown [id number] 2.16.840.1.073012.3.579.2. 593 1976 Unknown [id number] 2.16.840.1.388807.3.579.2. 593 1976 Unknown [id number] 2.16.840.1.688741.3.579.2. 593 1976 Unknown [id number] 2.16.840.1.005510.3.579.2. 593 1976 Unknown [id number] 2.16.840.1.761848.3.579.2. 593 1976 Unknown [id number] 2.16.840.1.731860.3.579.2. 1286 1976 Unknown [id number] 2.16.840.1.223385.3.579.2. 1286 1976 Unknown [id number] 2.16.840.1.125038.3.579.2. 1286 1976 Unknown [id number] 2.16.840.1.637977.3.579.2. 1286 1976 Unknown [id number] 2.16.840.1.834641.3.579.2. 1286 1976 Unknown [id number] 2.16.840.1.486818.3.579.2. 727 1976 Unknown [id number] 2.16.840.1.336642.3.579.2. 727 1976 Unknown [id number] 2.16.840.1.997015.3.579.2. 727 1976 Unknown [id number] 2.16.840.1.245598.3.579.2. 727 1976 Unknown [id number] 2.16.840.1.690374.3.579.2. 727 1976 Unknown [id number] 2.16.840.1.419117.3.579.2. 727 1976 Unknown [id number] 2.16.840.1.328937.3.579.2. 727 1976 Unknown [id number] 2.16.840.1.632707.3.579.2. 727 1976 Unknown [id number] 2.16.840.1.627681.3.579.2. 1258 1976 Unknown [id number] 2.16.840.1.971270.3.579.2. 1258 1976 Unknown [id number] 2.16.840.1.364754.3.579.2. 1258 1976 Unknown [id number] 2.16.840.1.322413.3.579.2. 1258 1976 Unknown [id number] 2.16.840.1.079742.3.579.2. 1258 1976 Unknown [id number] 2.16.840.1.998925.3.579.2. 9 1976 Unknown [id number] 2.16.840.1.219648.3.579.2. 1258 1976 Unknown [id number] 2.16.840.1.942321.3.579.2. 1258 1976 Unknown [id number] 2.16.840.1.776163.3.579.2. 1258 1976 Unknown [id number] 2.16.840.1.104835.3.579.2. 1258 1976 Unknown [id number] 2.16.840.1.715173.3.579.2. 9 1976 Unknown [id number] 2.16.840.1.852518.3.579.2. 1259 1976 Unknown [id number] 2.16.840.1.637305.3.579.2. 1259 1976 Unknown [id number] 2.16.840.1.170832.3.579.2. 1259 1976 Unknown [id number] 2.16.840.1.520425.3.579.2. 9 1976 Unknown [id number] 2.16.840.1.112290.3.579.2. 1259 1976 Unknown [id number] 2.16.840.1.590393.3.579.2. 9 1976 Unknown [id number] 2.16.840.1.012308.3.579.2. 9 1976 Unknown [id number] 2.16.840.1.668946.3.579.2. 9 1976 Unknown [id number] 2.16.840.1.109390.3.579.2. 9 1976 Unknown [id number] 2.16.840.1.005077.3.579.2. 6 1976 Unknown [id number] 2.16.840.1.610270.3.579.2. 6 1976 Unknown [id number] 2.16.840.1.597020.3.579.2. 1285 1976 Unknown [id number] 2.16.840.1.973302.3.579.2. 128 1976 Unknown [id number] 2.16.840.1.415021.3.579.2. 1285 1976 Unknown [id number] 2.16.840.1.314017.3.579.2. 1285 1976 Unknown [id number] 2.16.840.1.710873.3.579.2. 1286 1976 Unknown [id number] 2.16.840.1.426425.3.579.2. 1286 1959 Unknown [id number] 2.16.840.1.435744.19 1959 Unknown [id number] Unknown Social History Date Type Detail Facility Start: 02-21-2022 End: 08-28-2024 Sex Assigned At [facility] Other Start: 07-27-2016 End: 10-25-2023 Tobacco smoking status VTIS Never smoked tobacco [facility] Start: 07-27-2016 End: 10-25-2023 Tobacco use and exposure Smokeless tobacco non-user [facility] Start: 12-15-2020 End: 06-05-2024 Alcohol intake Current non-drinker of alcohol (finding) [facility] Start: 1975 Sex Assigned At Not on file [facility] Start: 01-07-2022 End: 02-21-2022 Exposure to SARS-CoV-2 (event) Not sure [facility] Tobacco Past [facility] Comment on above: stopped 12 years ago stopped 12 years ago Tobacco smoking status No Smoking Status Entered [facility] Tobacco smoking status Never [facility] Start: 02-21-2022 End: 08-28-2024 History of Social function [facility] Start: 02-29-2024 End: 08-28-2024 Alcoholic beverage intake Lifetime non-drinker (finding) [facility] Are you now , , , , [...] e: 1-2 cups per day [facility] How hard is it for you to pay for the very basics like food, housing, medical care, and heating Not very hard [facility] Do you feel stress - tense, restless, nervous, or anxious, or unable to sleep at night because your mind is troubled all the time - these days [OSQ] Only a little [facility] NEGATED: Highlighted rowStart: SIMON History of tobacco use Passive smoker [facility] Medical Equipment Procedure Code Equipment Code Equipment Origin al Text Equipment Identifier Dates Insert Acetabula r 32mm 0d D Hip X3 Trident Sterile Latex Free - [id number] Start: 07-01-2024 Shell Trident Ii 48mm D Tritanium Acetabular 3 Screw Hole Cluster Sterile - [id number] Start: 07-01-2024 Stem Femoral 8x9 9mm Size 2 High Insignia Collared - [id number] Start: 07-01-2024 Head V40 32mm -4 mm Offset Taper Biolox Delta Femoral Hip - [id number] Start: 07-01-2024 Screw Trident Ii 6.5mm 30mm Bone Low Profile Hexagonal Sterile - [id number] Start: 07-01-2024 Functional Status Date Assessment Result Facility 11-28-2023 Functional Status N/A [facility] 05-29-2023 Functional Status N/A [facility] 11-24-2022 Functional Status N/A [facility] 04-26-2022 Functional Status N/A [facility] Jose Angel Clinical Notes 12-14-2020 to 08-28-2024 Essie Ryan NP - 08/28/2024 1:53 PM [facility] - 08/28/2024 1:20 PM Wilian Ryan NP - 08/28/2024 1:20 PM Wilian Ryan NP - 08/28/2024 7:09 AM ESTPatient Instructions Note Date & Type Note Facility 08-28-2024 History of Presen t illness Narrative Associated Problem(s): Anxiety Buspar FLOR 7=6 Pt states she is doing good after having her right hip surgery and inspire done. Chest is itchy and burning for about a week. Pt still has steri strips on. Images from the original note were not included. Stacey Sahu is a 49 y.o. female presents with chief complaint of No chief complaint on file. HPI: Here for a fu appt: since last visit has had hip replacement right, and inspire device placed last week Overall she is doing fairly well. No dyspnea, no NVD No bloody stools Does have hx of bipolar and anxiety: is taking abilify and buspar. No SI/HI/aggitation. Sleep is not good d/t post op pain Does have some dizziness when standing for a time doing dishes. Has to sit down, can feel kind of sweaty but no chest pain SUBJECTIVE: MEDICATIONS: Current Outpatient Medications Medication Instructions ARIPiprazole (ABILIFY) 15 mg, Oral, Daily atorvastatin (LIPITOR) 80 mg, Oral, Every evening busPIRone (BUSPAR) 7.5 mg, Oral, 2 times daily omeprazole (PRILOSEC) 40 mg, Oral, Daily before breakfast ALLERGIES: Allergies Allergen Reactions Penicillins Other and Unknown As a child REVIEW OF SYMPTOMS: Review of Systems Constitutional: Positive for fatigue. Negative for appetite change, chills and fever. [...] Skin: Negative for rash and wound. Neurological: Positive for light-headedness. Negative for dizziness, tremors, seizures, syncope and headaches. Psychiatric/Behavioral: Negative for behavioral problems, self-injury and suicidal ideas. The patient is not nervous/anxious. Hematological: Does not bruise/bleed easily. Endocrine: [...] in her father. OBJECTIVE: Visit Vitals BP 116/86 (BP Location: Right arm, Patient Position: Sitting, BP Cuff Size: Adult long) Pulse (!) 111 Temp 98.5 F (Temporal) Resp 18 Wt 191 lb 12.8 oz SpO2 98% BMI 37.46 kg/m Smoking Status Never BSA 1.92 m Physical Exam Vitals and nursing note reviewed. Constitutional: General: She is not in acute distress. Appearance: Normal appearance. She is not ill-appearing. HENT: Head: Normocephalic and atraumatic. Right Ear: [...] sounds: Normal breath sounds. No wheezing or rhonchi. Abdominal: General: Bowel sounds are normal. There is no distension. Palpations: Abdomen is soft. There is no mass. Tenderness: There is no abdominal tenderness. Musculoskeletal: General: Normal range of motion. Cervical back: Normal range of motion and neck supple. Right lower leg: No edema. Left lower leg: No edema. Lymphadenopathy: Cervical: No cervical adenopathy. Skin: General: Skin is warm and dry. Capillary Refill: Capillary refill takes 2 to 3 seconds. Coloration: Skin is pale. Findings: No rash. Comments: Incision from inspire w francisco chand , +ecchymosis, but no s/s infection Neurological: General: No focal deficit present. Mental Status: She is alert and oriented to person, place, and time. Psychiatric: Mood and Affect: Mood normal. Behavior: Behavior normal. Thought Content: Thought content normal. Judgment: Judgment normal. ASSESSMENT AND PLAN: Follow up in about 4 weeks (around 09/25/2024). Problem List Items Addressed This Visit Crohn's disease of both small and large intestine without complications ([facility]) Continue to follow with GI Gastro-esophageal reflux disease without esophagitis Recommendations: freq small meals, nothing to eat or drink at least 2 hours prior to bed, limit caffeine, alcohol, as well as spicy foods Meds to limit or avoid if possible: NSAIDS Elevate HOB if possible Current med: omeprazole Relevant Medications omeprazole (PriLOSEC) [address] capsule NIRMALA (obstructive sleep apnea) Does not tolerate PAP use Had inspire placement recenlty PAH (pulmonary artery hypertension) (CMS/HCC) Saw cardiology in the past, was on letaris, no longer taking it or fu with cardiology Non compliant with PAP, looking into inspire No chest pain/pressure/dyspnea Breast cancer screening Relevant Orders Bilateral screening mammogram Anxiety - Primary Buspar FLOR 7=6 Relevant Medications busPIRone (Buspar) 15 MG tablet Hyperlipidemia (CMS/HCC) Relevant Medications atorvastatin (Lipitor) 80 MG tablet Other Relevant Orders Lipid panel Body mass index (BMI) 38.0-38.9, adult Morbid (severe) obesity due to excess calories (CMS/HCC) Discussed with patient their BMI (actual, verses recommended). We have also discussed lifestyle modifications: attempts to perform physical activity as chronic conditions allow, also to monitor dietary intake: increasing protein/fruits/veggies and lowering carb intake (unless contraindicated). Limit sodas, juices, and sugary drinks.. Bipolar disorder, unspecified (CMS/HCC) Used to see psych, does not want to continue with them Current meds: parveen gantpar PHQ 9=9 FLOR 7=6 Relevant Medications ARIPiprazole (Abilify) 15 MG tablet RESOLVED: Pulmonary hypertension, unspecified (CMS/HCC) S/P total right hip arthroplasty 06/24/24 Normal post op discomfort Did at home PT Dizziness and giddiness Relevant Orders CBC and differential Iron + transferrin + TIBC Ferritin Comprehensive metabolic panel Other Visit Diagnoses Gastroesophageal reflux disease, unspecified whether esophagitis present Relevant Medications omeprazole (PriLOSEC) [address] capsule Associated Problem(s): Bipolar disorder, unspecified (CMS/HCC) Used to see psych, does not want to continue with them Current meds: raysa gant PHQ 9=9 FLOR 7=6 Associated Problem(s): Morbid (severe) obesity due to excess calories (CMS/HCC) Discussed with patient their BMI (actual, verses recommended). We have also discussed lifestyle modifications: attempts to perform physical activity as chronic conditions allow, also to monitor dietary intake: increasing protein/fruits/veggies and lowering carb intake (unless contraindicated). Limit sodas, juices, and sugary drinks.. Associated Problem(s): S/P total right hip arthroplasty 06/24/24 Normal post op discomfort Did at home PT Associated Problem(s): Gastro-esophageal reflux disease without esophagitis Recommendations: freq small meals, nothing to eat or drink at least 2 hours prior to bed, limit caffeine, alcohol, as well as spicy foods Meds to limit or avoid if possible: NSAIDS Elevate HOB if possible Current med: omeprazole Associated Problem(s): Crohn's disease of both small and large intestine without complications (CMS/HCC) Continue to follow with GI Associated Problem(s): PAH (pulmonary artery hypertension) (CMS/HCC) Saw cardiology in the past, was on letaris, no longer taking it or fu with cardiology Non compliant with PAP, looking into inspire No chest pain/pressure/dyspnea Associated Problem(s): NIRMALA (obstructive sleep apnea) Does not tolerate PAP use Had inspire placement recenlty documented in this encounter [facility] 08-28-2024 Instructions Essie Ryan NP - 08/28/2024 1:20 PM EST No medication dose changes Get labs checked-they are fasting, but make sure you drink plenty of water before going documented in this encounter [facility] 07-30-2024 Note HNO ID: [id number] Author: LOIS MCKEON MD Service: ? Author Type: Physician Type: Progress Notes Filed: 07/30/2024 15:03 Note Text: Stacey Sahu 1 month postop right total hip doing well. Wound is healed. Mild groin soreness. Ambulating with a cane. X-rays excellent. I counseled her on her activities and we will see her back for clinical check in 2 months. She did ask about returning to work although does not have a job or a profession. I suggested waiting another month before she seeks an appointment. Lois Mckeon MD [facility] 07-30-2024 History of Presen t illness Narrative Stacey Sahu 1 month postop right total hip doing well. Wound is healed. Mild groin soreness. Ambulating with a cane. X-rays excellent. I counseled her on her activities and we will see her back for clinical check in 2 months. She did ask about returning to work although does not have a job or a profession. I suggested waiting another month before she seeks an appointment. Lois Mckeon MD documented in this encounter [facility] 07-30-2024 History of Presen t illness Narrative Radiology Service Progress Note PATIENT NAME: Stacey Sahu DATE OF SERVICE: July 30, 2024 TIME: 1:34 PM PATIENT IDENTITY VERIFICATION COMPLETED USING TWO (2) IDENTIFIERS: Name and Date of confirmed by patient verbally. FALL SCREENING: Has the patient had 2 falls in the last year or 1 fall with injury or currently using an Ambulatory Assistive Device (Walker, Cane, Wheelchair, Crutches, etc.)? No PATIENT GENDER DATA: Assigned female at . status: : No status: NO. PATIENT RELEVANT IMPLANT DATA REVIEWED: Not Applicable PATIENT PRESENTS WITH AN IMPLANTABLE OR ATTACHED GAS PLANT DISPATCHER: No RADIOLOGY DEPARTMENT: General X-ray: Exam(s) Completed: Pelvis X-Ray: Pelvis with Hip Right and Wt. Bearing PERIPHERAL IV DATA: Not applicable SIGNED BY: MAMTA Carbajal July 30, 2024 1:34 PM documented in this encounter [facility] 07-30-2024 Note HNO ID: [id number] Author: LETTY ONTIVEROS CT Service: Radiology Author Type: Technologist Type: Progress Notes Filed: 07/30/2024 13:35 Note Text: Radiology Service Progress Note PATIENT NAME: Stacey Sahu DATE OF SERVICE: July 30, 2024 TIME: 1:34 PM PATIENT IDENTITY VERIFICATION COMPLETED USING TWO (2) IDENTIFIERS: Name and Date of confirmed by patient verbally. FALL SCREENING: Has the patient had 2 falls in the last year or 1 fall with injury or currently using an Ambulatory Assistive Device (Walker, Cane, Wheelchair, Crutches, etc.)? No PATIENT GENDER DATA: Assigned female at . status: : No status: NO. PATIENT RELEVANT IMPLANT DATA REVIEWED: Not Applicable PATIENT PRESENTS WITH AN IMPLANTABLE OR ATTACHED GAS PLANT DISPATCHER: No RADIOLOGY DEPARTMENT: General X-ray: Exam(s) Completed: Pelvis X-Ray: Pelvis with Hip Right and Wt. Bearing PERIPHERAL IV DATA: Not applicable SIGNED BY: MAMTA Carbajal July 30, 2024 1:34 PM [facility] 07-01-2024 Note HNO ID: [id number] Author: DANA HOWE MD Service: Anesthesiology Author Type: Anesthesiologist Type: Anesthesia Procedure Notes Filed: 07/01/2024 08:08 Note Text: ANESTHESIOLOGY PROCEDURE NOTE Spinal Block General Information Procedure Start Time/Medication Administration: 07/01/2024 8:03 AM Procedure End time: 07/01/2024 8:05 AM Patient location during procedure: OR Timeout Performed Pre-procedure: timeout performed Consent Obtained: Yes Patient identity confirmed: arm band and patient Reason for Block: primary surgical anesthetic Staffing Anesthesiologist: Dana Howe MD Resident: Jeff Verde MD Performed by: resident Preparation Sterility Preparation: hand hygiene performed prior to procedure, sterile gloves, drapes, and procedure tray, surgical cap used, mask used, sterile drape used during line insertion, skin prep agent completely dried prior to procedure Site Prep: Duraprep Procedure Details Patient Position: sitting Monitoring: Pulse Ox, NIBP and EKG Approach: Midline Location: L4-5 Injection Technique: single-shot Needle Needle Type: pencil-tip Needle Gauge: 25 G Needle Length: 3.5 in Needle Insertion Depth: 9 cm CSF: adequate CSF flow from spinal needle Assessment Events: tolerated well Medications Administered bupivacaine-dextrose 0.75 % (7.5 mg/mL) injection (SENSORCAINE MPF SPINAL) - INTRASPINAL 1.7 mL - 07/01/2024 8:03:00 AM SIGNATURE: Dana Howe MD PATIENT NAME: Stacey Sahu DATE: July 01, 2024 TIME: 8:07 AM CSN: [id number] [facility] 06-05-2024 History and physical note Images from the original note were not included. [facility] HISTORY AND PHYSICAL EXAMINATION SERVICE DATE: 06/05/2024 SERVICE TIME: 9:56 AM PRIMARY CARE PHYSICIAN: Essie Ryan CNP, CERAMIC MOLD DESIGNER REASON FOR VISIT: Stacey Sahu is a [...] STOP-Bang Score: 0 (Non-compliant with CPAP ) [id number] Score: Age: <65 Sex: female [id number] Score: ARISCAT Score: Age: <=50 Preoperative SpO2: [...] x 4 Crohn's disease without complication (HCC) [id number] Pulmonary Htn (Hcc) Obese Nirmala (Obstructive Sleep [...] fevers. Neuro: No history of TIA's, stroke, CORPORATE ATTORNEY tumor, impaired sensorium, hemiplegia, paraplegia or quadraplegia. [...] voices comprehension and compliance. SIGNATURE: Negrita Tejeda APRN.NIURKA PATIENT NAME: Stacey Sahu DATE: 06/05/2024 TIME: 9:56 AM [facility] 06-05-2024 History and physical note Images from the original note were not included. [facility] HISTORY AND PHYSICAL EXAMINATION SERVICE DATE: 06/05/2024 SERVICE TIME: 9:56 AM PRIMARY CARE PHYSICIAN: Essie Ryan, CERAMIC MOLD DESIGNER, CERAMIC MOLD DESIGNER REASON FOR VISIT: Stacey Sahu is a [...] STOP-Bang Score: 0 (Non-compliant with CPAP ) [id number] Score: Age: <65 Sex: female [id number] Score: ARISCAT Score: Age: <=50 Preoperative SpO2: [...] delivery) x 4 Crohn's disease without complication ([facility]) [id number] Pulmonary Htn (Hcc) Obese Nirmala (Obstructive Sleep Apnea) Gerd (Gastroesophageal Reflux Disease) Crohn's Disease of Intestine ([facility]) Enterolith of Small Intestine (Hcc) Bipolar Disease, [...] fevers. Neuro: No history of TIA's, stroke, CORPORATE ATTORNEY tumor, impaired sensorium, hemiplegia, paraplegia or quadraplegia. [...] voices comprehension and compliance. SIGNATURE: Negrita Tejeda APRN.CNP PATIENT NAME: Stacey Sahu DATE: 06/05/2024 TIME: 9:56 AM documented in this encounter [facility] 06-04-2024 Instructions Negrita Tejeda APRN.NIURKA - 06/04/2024 8:24 AM EST Images from the original note were not included. [place] [facility]esthesia [facility] PATIENT PREOPERATIVE INSTRUCTIONS Lois Mckeon MD has scheduled you for your procedure at this surgery center: [facility]: [phone] [place] [address]. On your scheduled day of surgery, please [...] office. If you are currently using a ldkh-xvg-xqvk injectable or oral medication for diabetes or [...] Procedures: - YOU MUST HAVE A RESPONSIBLE ORDER TRACER TAKE YOU HOME. A OUTSIDE SALESPERSON OR SAND CONDITIONER CANNOT BE MADE A RESPONSIBLE ORDER TRACER. - We recommend that a responsible person [...] Advance Directive, please fax a copy to [phone] or email to for it to be [...] chart that day. documented in this encounter [facility] 05-29-2024 History of Presen t illness Narrative Images from the original note were not included. Stacey Sahu is a 48 y.o. female presents with chief complaint of Bipolar HPI: Since last visit has seen ENT and ortho Hip; right hip replacement scheduled for 07/01/24 through [facility]. No changes in hip sxs, average pain 5/10 NIRMALA: is going to have inspire procedure and is scheduled for 08/01/24 in [place] Mood/Anxiety: takes meds daily, no side effects. [...] specialist for this PAH (pulmonary artery hypertension) ([facility]) Saw cardiology in the past, [...] year Associated Problem(s): PAH (pulmonary artery hypertension) (CMS/HCC) Saw cardiology in the past, was on letaris, no longer taking it or fu with cardiology Non compliant with PAP, looking into inspire No chest pain/pressure/dyspnea Associated Problem(s): NIRMALA (obstructive sleep apnea) Does not tolerate PAP use Is pursing surgical intervention for device insertion Continue with specialist for this documented in this encounter [facility] 05-29-2024 Instructions Essie Ryan NP - 05/29/2024 2:20 PM EST No med dose changes documented in this encounter [facility] 05-09-2024 Telephone encounter Note PSS calling from Dr Rossi's office to ask how soon the PT could be scheduled for surgery for inspire implant, nerve stimulator. General for 3 hours. Please advise [phone] ask to speak with Alejandra Marlow. [facility] 05-09-2024 Miscellaneous Notes PSS calling from Dr Rossi's office to ask how soon the PT could be scheduled for surgery for inspire implant, nerve stimulator. General for 3 hours. Please advise [phone] ask to speak with Alejandra Marlow. documented in this encounter [facility] 04-16-2024 Note HNO ID: [id number] Author: LOIS MCKEON MD Service: ? Author [...] Assessment right hip arthritis. Lois Mckeon MD [facility] 04-16-2024 History of Presen t illness [...] Lois Mckeon MD documented in this encounter [facility] 04-10-2024 History of Presen t illness [...] wearing PAP, did see a specialist in [place] for eval for inspire, and is going [...] Nocturia 01/14/2023 Obese 11/08/2022 Obesity, morbid (CMS/HCC) NRIMALA (obstructive sleep apnea) Other acute sinusitis 06/07/2023 [...] MG DR capsule documented in this encounter [facility] 03-19-2024 Note HNO ID: [id number] Author: LOIS MCKEON MD Service: ? Author Type: Physician Type: Progress Notes Filed: 03/19/2024 10:34 Note Text: She is here for chronic right hip and groin pain. Has been injected multiple times and done therapy. Takes medication. Has progressed to the point where she has pain that is affecting her quality of life. 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 Pain [...] the scan is complete. Lois Mckeon MD [facility] 03-19-2024 History of Presen t illness Narrative She is here for chronic right hip and groin pain. Has been injected multiple times and done therapy. Takes medication. Has progressed to the point where she has pain that is affecting her quality of life. 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 Pain [...] Lois Mckeon MD documented in this encounter [facility] 03-19-2024 Instructions Clarissa Zacarias RN - 03/19/2024 10:[address] Mckeon has ordered a cream that will be delivered to your home. The company, [employer], will call or text you from a [phone] phone number. Please reply or answer the call to start the process. If you do not hear from them within 48 hours, please call . documented in this encounter [facility] 03-19-2024 History of Presen t illness [...] PATIENT PRESENTS WITH AN IMPLANTABLE OR ATTACHED GAS PLANT DISPATCHER: No RADIOLOGY DEPARTMENT: General X-ray: Exam(s) Completed: Pelvis X-Ray: Pelvis with Hip Right PERIPHERAL IV DATA: Not applicable SIGNED BY: RT Rai(Javy) March 19, 2024 9:04 AM documented in this encounter [facility] 03-19-2024 Note HNO ID: [id number] Author: PAULETTE COREA RT(R) Service: ? Author [...] PATIENT PRESENTS WITH AN IMPLANTABLE OR ATTACHED GAS PLANT DISPATCHER: No RADIOLOGY DEPARTMENT: General X-ray: Exam(s) Completed: Pelvis X-Ray: Pelvis with Hip Right PERIPHERAL IV DATA: Not applicable SIGNED BY: RT Rai(Javy) March 19, 2024 9:04 AM [facility] 03-18-2024 Telephone encounter Note Left message with pt to be sure to have report as well as images, but we may need an xray if do not have, he will look at xray and do assessment and determine if surgery will be an option. Clarissa Zacarias RN [facility] Work Phone: 03-18-2024 Miscellaneous Notes Left [...] at her appt on 03/19 Callback number: [phone] documented in this encounter [facility] 03-18-2024 Telephone encounter Note Name of Caller: stacey Relationship to patient: patient Last visit in this department: Visit date not found Reason for Call: Other : has questions about what to expect at her appt on 03/19 Callback number: [phone] [facility] 03-06-2024 Note SLEEP CLINIC INITIAL EVALUATION Date of Evaluation: 03/06/24 Referring Physician: Dr. Yumiko Tapia Chief Complaints: NIRMALA and intolerance to CPAP History of Presenting Illness: Stacey Sahu is a 48 y.o. woman presenting to the sleep clinic for the first time. She is referred to us by her communication manager for evaluation for Inspire??? therapy. She states [...] years, until she went to see Dr. Yumiko Tapia at [place] earlier this year. She states that the [...] risk of NIRMALA: Yes 0 - 2 Yost F et al Anesthesiology 2008 and BJA 2011 Cost Sleepiness Scale: How likely are you to [...] of dozing === (more content not included)... [facility] 03-06-2024 Note Currently resolved [facility] 03-06-2024 Note Currently stable and controlled and she is going for pulmonary appt today [facility] 03-06-2024 Note Lipid abnormalities are still elevated with Chol and LDL not within goal. D/w pt will increase lipitor to 80 mg daily and pt to call office for any myalgias or concerns, repeat labs in 2-3 months- LFT and Lipid levels. [facility] 03-06-2024 Note Pt is here for a six month follow up. Pt denies sob, chest pains, palpatations Review of Systems Cardiovascular: Chest pain: discomfort , intermittent. Palpitations: not as bad . All other systems reviewed and are negative. [facility] 03-06-2024 Note UTP CARDIOLOGY PROGR ESS [...] she has appointment with pulmonary today in [place]- r/t NIRMALA untreated. Visit Vitals BP (!) [...] wave abnormality Anterolateral leads 05/13/2016 Echo [place] Normal LV systolic function normal RV size/function [...] and lipid levels again in 2-3 months [facility] 02-29-2024 History of Presen t illness Narrative Associated Problem(s): Neuritis of right median nerve Continue NSAID, get a cock up splint Fu in 6 weeks Associated Problem(s): Neuritis of left median nerve Cont nsaid Trial cock up splint Recheck in 6 weeks Associated Problem(s): Bipolar disorder, unspecified ([facility]) Cont w abilify at 10mg pt does not want adjustment May take buspar prn if too sedating No call from psych, we will reach out to them Fu in office with me in 6 weeks Sooner if needed Pt has not been taking her buspar. Pt states that the new medication, abilify has been helpful for her. Pt has complaints of tingling/numbness in her left inner wrist down to her last three fingers on and off every day it does cause weakness and weak glass bender. Pt states it has been going on for a month now, she does not recall anything happening that would cause that and sometimes it will do it in her right wrist down to her fingers as well. Pt states it was before taking the new medication: abilify Images from the original note were not included. Stacey Sahu is a 48 y.o. female presents with chief complaint of No chief complaint on file. HPI: 1 month fu for initiation of her abilify for bipolar disorder: Taking meds daily, no SI/HI/hallucinations Sleep:good Appetitie:no change Mood: seems getting better, less extreme fluctuations Psych appt: has not heard from them Also noting: parasethesias bilat hands, L>R. Intermittent, RHD, repetitive work with wrists SUBJECTIVE: MEDICATIONS: Current Outpatient Medications Medication Instructions ARIPiprazole (ABILIFY) 10 mg, Oral, Daily, 1/2 pill daily for 7 days, then increase to 1 pill daily atorvastatin (LIPITOR) 40 mg, Oral, Every evening busPIRone (BUSPAR) 7.5 mg, Oral, 2 times [...] for difficulty urinating, dysuria and frequency. Musculoskeletal: Negative for arthralgias, back pain, joint swelling and myalgias. Skin: Negative for rash and wound. Neurological: Negative for dizziness, tremors, seizures, syncope and headaches. CTS symptoms bilat hands Psychiatric/Behavioral: Negative for behavioral problems, dysphoric mood, self-injury and suicidal ideas. The patient is nervous/anxious. Depression Mood fluctuations Hematological: Does not bruise/bleed easily. Endocrine: Negative for polydipsia, polyphagia and polyuria. Allergic/Immunologic: Negative for environmental allergies and food allergies. PAST MEDICAL HISTORY Past Medical History: Diagnosis Date Acute thigh pain, right Allergic rhinitis Anxiety 07/25/2023 Bipolar disorder ([facility]) Chest pain 02/09/2012 Chronic GERD Chronic rhinitis 2023 Constipation COVID-19 01/2022 Crohn's disease ([facility]) De Quervain's tenosynovitis, right Dyspnea on exertion [...] in her father. OBJECTIVE: Visit Vitals BP 122/88 (BP Location: Left arm, Patient Position: Sitting, BP Cuff Size: Adult long) Pulse 97 Temp 97.8 F (Temporal) Resp 18 Ht 5' Wt 196 lb SpO2 98% BMI 38.28 kg/m Smoking Status Never BSA 1.94 m [...] is normal. Breath sounds: Normal breath sounds. Musculoskeletal: General: Normal range of motion. Cervical back: Normal range of motion and neck supple. Skin: General: Skin is warm and dry. Capillary Refill: Capillary refill takes 2 to 3 seconds. Findings: No rash. Neurological: General: No focal deficit present. Mental Status: She is alert and oriented to person, place, and time. Comments: +phalens bilat hands immediately No thenar atrophy and neg tinels Psychiatric: Mood and Affect: Mood normal. Behavior: Behavior normal. Thought Content: Thought content normal. Judgment: Judgment normal. ASSESSMENT AND PLAN: No follow-ups on file. Problem List Items Addressed This Visit Chronic rhinitis Relevant Medications cetirizine (ZyrTEC) 10 MG tablet BMI 38.0-38.9,adult - Primary Bipolar disorder, unspecified (CMS/HCC) Cont w abilify at 10mg pt does not want adjustment May take buspar prn if too sedating No call from psych, we will reach out to them Fu in office with me in 6 weeks Sooner if needed Neuritis of left median nerve Cont nsaid Trial cock up splint Recheck in 6 weeks Neuritis of right median nerve Continue NSAID, get a cock up splint Fu in 6 weeks Other Visit Diagnoses Gastroesophageal reflux disease, unspecified whether esophagitis present Relevant Medications omeprazole (PriLOSEC) [address] capsule documented in this encounter [facility] 11-28-2023 Hospital Discharg e instructions Patient Education [...] include: ?8 oz (237 mL) of milk, yxzlequ-axexlvzedrdl-iivha milk, and calcium-fortifiedfruit juice. Calcium-fortified means that [...] ?Spinach (cooked), rhubarb, beets, sweet potatoes, and Lithuanian chard. ?Peanuts. ?Potato chips, urdu fries, and baked potatoes with skin on. ?Nuts and nut products. ?Chocolate. If you regularly take a diuretic medicine, make sure to eat at least 1 or 2 servings of fruits or vegetables that are high in potassium each day. These include: ?Avocado. ?Banana. ?Yale, prune, carrot, or tomato juice. ?Baked potato. [...] magnesium, fish oil, or vitamin B6. Take caae-mlt-rrfbjmn and prescription medicines only as told by [...] Casseroles. Pizza. Lasagna. Frozen meals. Potato chips. Niuean fries. The items listed above may not [...] provider. Document Revised: 09/22/2022 Document Reviewed: 09/22/2022 [employer] Patient Education 2022 [employer]. Follow Up Care 05/29/2023 15:22:48 With:LESLIE JUNG PA-C, URL Address: [address] [place] [address] When: Unknown [facility] 11-28-2023 Note - From: Sally Linda To: EU - Administrative; Sent: 11/28/2023 09:53:09 EDT Show up: 02/25/2024 09:52:00 EDT Subject: Ambulatory Reminder Due Date/Time: 11/24/2024 09:53:00 EDT Reminder/Recall Patient needs scheduled for a 1 yr f/u with MAGALYS and BEN with DA, due in 11/[address] [facility] 08-29-2023 Note Pt to f/U with pulmo nology for further evaluation and mangement- she states she has been unable to wear Cpap and would like to see about Inspire implant. [facility] 08-29-2023 Note Will increase lipito r to 40 mg daily for better lipid management and repeat Lipid level and LFT in 2-3 months [facility] 08-29-2023 Note Stable no concerning symptoms Un iversity [facility] 08-29-2023 Note UTP CARDIOLOGY PROGR ESS [...] are negative. Previous HPI per M Fer SHANK TURNER HPI Stacey Sahu is a 47 y.o. [...] Letairis tx doing well. (remote use of Monitorex 2011) Preserved LVEF - RVSP 27mmHg Normal [...] wave abnormality Anterolateral leads 05/13/2016 Echo - [place] Normal LV systolic function normal RV size/function No valve abnormality. RVSP 27mmHg 06/01/15 [facility] left ventricular systolic functio (more content not included)... [facility] 08-29-2023 Note Patient here for 10 [...] All other systems reviewed and are negative. [facility] 07-11-2023 Evaluation note Encounter Date Diagnosis [...] treatment plan. Patient left in stable condition [facility] Other 12-04-2023 Hospital Discharge instructions Patient Education 05/29/2023 15:17:27 Kidney Stones, Gghz-jn-Jdry Kidney Stones Kidney stones are rock-like masses [...] Follow these instructions at home: Medicines Take gzha-dbu-wtzixym and prescription medicines only as told by [...] provider. Document Revised: 02/14/2022 Document Reviewed: 02/14/2022 [employer] Patient Education 2022 [employer]. Follow Up Care 11/08/2022 13:29:10 With:JOSE FELIX, Jose Palafox, URL Address: [facility] [address] , [place] [address] [phone] When: Unknown Comments:4 mos w/ metabolic w/u [facility] 02-09-2023 NoteCONSULTATION CONSULTATION DATE: 08/04/2022 HISTORY OF [...] medications in three months, unless otherwise indicated.[id number] NotePROCEDURE: XR HIP RT 2 3V WO [...] Electronically authenticated by: PREET RODRIGEZ Date: 2022-07-07 15:33[facility]01-12-2023 NoteCONSULTATION CONSULTATION DATE: 07/07/2022 HISTORY OF PRESENT [...] procedure, and she agrees to move forward.[facility] [id number] NoteCONSULTATION CONSULTATION DATE: 06/09/2022 HISTORY OF PRESENT [...] will re-evaluate with application of the diclofenac.[facility] 04-26-2022 Hospital Discharge instructions Patient Education [...] 06/12/2006 Document Revised: 03/01/2019 Document Reviewed: 05/12/2017 [employer] Patient Education 2020 [employer]. 04/26/2022 12:17:47 Hematuria, Adult Hematuria, Adult Hematuria [...] Follow these instructions at home: Medicines Take ngfj-abv-qsshrdy and prescription medicines only as told by [...] or the blood stops without treatment. Take eocg-svs-keylyrb and prescription medicines only as told by your health care provider. Drink enough fluid to keep your urine clear or pale yellow. This information is not intended to replace advice given to you by your health care provider. Make sure you discuss any questions you have with your health care provider. Document Released: 06/12/2006 Document Revised: 11/06/2019 Document Reviewed: 07/15/2017 [employer] Patient Education 2019 [employer] Follow Up Care 04/22/2022 08:39:58 With:JOSE FELIX, Jose Palafox, URL Address: [address] [place] [address] [place] [address] [phone] When:Within 6 Month(s) Comments:6 mo fu with MAGALYS [facility] Jose Angel 10-04-2022 NoteCONSULTATION PROCEDURE DATE: 03/29/2022 PREOPERATIVE DIAGNOSIS: [...] Will be followed up in the office.[facility] [id number] NoteCONSULTATION CONSULTATION DATE: 03/22/2022 CHIEF COMPLAINT: Right [...] that. CC: Essie Ryan, [facility]09-13-2022 Hospital Discharge instructions Patient Education 03/08/2022 [...] GARCIA Address: [facility] [address], [place] [address]- Business (1) When: Unknown Comments:Office will call to schedule follow up [facility]08-29-2022 History of Present illness Narrative* Shiraz Roy DO - 02/21/2022 12:46 PM EDT Images from the original note were not included. [facility] - Medical Spine [...] Therapies PT at [facility] in [place] in June 2021 - 2 times per week for 1 month, exercises, TENS, ice - no relief Ice/heat Prior spine/MSK interventions: -12/31/21 Dr. Page: R GTB CSI - minimal relief for 1 day. 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 Subjective Patient ID: Stacey [...] x 4 Crohn's disease without complication (HCC) [id number] Pulmonary Htn (Hcc) Obese Nirmala (Obstructive Sleep [...] hip (primary encounter diagnosis) Plan: CONSULT TO [facility] (M51.27) Lumbago-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 Plan: CONSULT TO [facility] Office Visit on 01/17/22 CONSULT TO [facility] PLAN I recommend she go to [...] 2022 TIME: 3:46 PM [facility] History of Present illness Narrative* Jorge [...] x 4 Crohn's disease without complication (HCC) [id number] Pulmonary Htn (Hcc) Obese Nirmala (Obstructive Sleep [...] trochanteric bursa Informed Consent Consent Obtained: Verbal [place] Protocol A moment to CARE was completed. [...] TIME: 1:09 PM PAGER/CONTACT #: Jorge Luis Javy DO Kaylee FOLLOW-UP: Return if symptoms worsen or fail to improve. I reviewed the information obtained and documented by the me. I examined the patient and evaluated all available films and pertinent documents. We discussed the case and I agree with the plans as outlined in this note. SIGNATURE: Jorge Luis Page PATIENT NAME: Stacey Sahu DATE: December 31, 2021 TIME: 1:05 PM [facility] Evaluation note* Encounter Date Diagnosis Assessment [...] refer her to Dr. Christian with the [facility]. [facility] Other 05-25-2022 Evaluation note* Encounter Date Diagnosis [...] I will see her with those results. [facility] Other 06-21-2021 History of Past illness Narrative* Problem Noted Date Resolved Date Generalized abdominal pain 12/14/202012/16 documented as of this encounter (statuses as of 12/31/2021) [facility] History of Past illness Narrative* Problem Noted Date Resolved Date Generalized abdominal pain 12/14/202012/16 documented as of this encounter (statuses as of 01/17/2022) [facility] History of Past illness Narrative* Problem Noted Date Resolved Date Generalized abdominal pain 12/14/202012/16 documented as of this encounter (statuses as of 03/13/2022) [facility] No data available for this section [facility] Future Appointments Appointment Date:10/24/2022 11:30:00 AM Scheduled Provider:Jose GARCIA MD Location:[facility] Appointment Type:URO Office Visit [facility] Evaluation + Plan note Future Appointments Appointment Date:05/29/2023 02:30:00 PM Scheduled Provider:Jose GARCIA MD [facility] [place] Appointment Type:URO Office Visit Future Scheduled Tests Laboratory* Calprotectin, Fecal 11/24/22 * CBC w/ Auto Diff 11/24/22 * Comprehensive Metabolic Panel 11/24/22 * C-Reactive Protein 11/24/22 Radiology* CT Abdomen/Pelvis w/contrast (enterography) 11/24/22 [facility] Evaluation + Plan note Future Appointments Appointment Date:05/29/2023 02:30:00 PM Scheduled Provider:Jose GARCIA MD Location[facility] [place] Appointment Type:URO Office Visit Future Scheduled Tests Laboratory* Calprotectin, Fecal 11/24/22 * CBC w/ Auto Diff 11/24/22 * Comprehensive Metabolic Panel 11/24/22 * C-Reactive Protein 11/24/[address] [facility] Future Appointments Appointment Date:02/02/2023 01:00:00 PM Scheduled Provider:Ignacia KHAN MD [facility] [facility] Appointment Type:BAD Follow Up Appointment Date:05/29/2023 02:30:00 PM Scheduled Provider:Jose GARCIA MD Location:[facility] Appointment Type:URO Office Visit Future Scheduled Tests Laboratory* Calprotectin, Fecal [facility] [facility] [address] [facility] Future Appointments Appointment Date:05/29/2023 02:30:00 PM Scheduled Provider:Jose GARCIA MD Location:[facility] Appointment Type:URO Office Visit Diagnostic Tests Pending * Calprotectin, Fecal 02/02/[address] Future Appointments Appointment Date:10/02/2023 03:00:00 PM Scheduled Provider:Jose GARCIA MD Location:[facility] Appointment Type:URO Office Visit [facility] evaluation note* Diagnosis Trochanteric bursitis of right hip- Primary Enthesopathy of hip region [facility] [employer] 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 [facility]* Diagnosis Tendinopathy of right gluteal region- Primary Trochanteric bursitis of right hip Enthesopathy of hip region Chronic bilateral low back pain without sciatica Lumbar spondylosis Lumbosacral spondylosis without myelopathy [facility]* Diagnosis Exhausted vascular access Other specified [...] region and thigh [facility] Diagnosis Exhausted vascular access Other specified [...] region and thigh [facility]* Diagnosis Acute otitis media, unspecified otitis [...] inoculation against influenza [facility] Exhausted vascular access [...] by other means [facility] Diagnosis Exhausted vascular access Other specified [...] region and thigh [facility] Diagnosis Acute otitis media, unspecified otitis [...] soft tissues of limb Bipolar disorder, unspecified ([facility])- Primary Bipolar disorder, unspecified Morbid (severe) obesity due to excess calories ([facility]) Gastro-esophageal reflux disease without esophagitis Body mass index (BMI) 38.0-38.9, adult Pulmonary hypertension, unspecified (CMS/HCC) Crohn's disease of both small and large intestine without complications ([facility]) Chronic right hip pain Bipolar disorder, current episode mixed, moderate ([facility])- Primary Chronic rhinitis Gastroesophageal reflux disease, unspecified whether esophagitis present BMI 38.0-38.9,adult Neuritis of left median nerve Neuritis of right median nerve Bipolar disorder, unspecified (CMS/HCC) Bipolar disorder, unspecified Bipolar disorder, unspecified ([facility]/HCC)- Primary Bipolar disorder, unspecified Neuritis of right median nerve Neuritis of left median nerve Morbid (severe) obesity due to excess calories ([facility]) Body mass index (BMI) 38.0-38.9, adult Anxiety Anxiety state, unspecified PAH (pulmonary artery hypertension) ([facility]/HCC) Other chronic pulmonary heart diseases Chronic rhinitis Gastroesophageal reflux disease, unspecified whether esophagitis present Needs flu shot Need for prophylactic vaccination and inoculation against influenza Bipolar 1 disorder ([facility])- Primary NIRMALA (obstructive sleep apnea) Obstructive sleep apnea (adult) (pediatric) PAH (pulmonary artery hypertension) ([facility]) Other chronic pulmonary heart diseases Chronic right hip pain Morbid (severe) obesity due to excess calories ([facility]) Anxiety Anxiety state, unspecified Chronic rhinitis Body mass index (BMI) 38.0-38.9, adult documented in this encounter [facility]* Diagnosis Exhausted vascular access Other [...] non-compliant with CPAP [facility] Diagnosis Bipolar disorder, current episode mixed, moderate (CMS/HCC)- Primary Chronic rhinitis Gastroesophageal reflux disease, unspecified whether esophagitis present BMI 38.0-38.9,adult Neuritis of left median nerve Neuritis of right median nerve Bipolar disorder, unspecified (CMS/HCC) Bipolar disorder, unspecified [facility] Diagnosis Bipolar disorder, current episode mixed, moderate (CMS/HCC)- Primary Chronic rhinitis Gastroesophageal reflux disease, unspecified whether esophagitis present BMI 38.0-38.9,adult Neuritis of left median nerve Neuritis of right median nerve Bipolar disorder, unspecified (CMS/HCC) Bipolar disorder, unspecified [facility] Diagnosis Exhausted vascular access Other specified [...] 37.0-37.9, adult Body Mass Index 37.0-37.9, adult Pain of right hip- Primary [facility]* Diagnosis Exhausted vascular access Other specified [...] 37.0-37.9, adult Body Mass Index 37.0-37.9, adult Status post right hip replacement Hip joint replacement by other means documented [facility]* Diagnosis Acute otitis media, unspecified otitis [...] Morbid (severe) obesity due to excess calories ([facility]) Gastro-esophageal reflux disease without esophagitis Body mass index (BMI) 38.0-38.9, adult Pulmonary hypertension, unspecified ([facility]) Crohn's disease of both small and large intestine without complications ([facility]) Chronic right hip pain Bipolar disorder, current episode mixed, moderate ([facility])- Primary Chronic rhinitis Gastroesophageal reflux disease, unspecified whether esophagitis present BMI 38.0-38.9,adult Neuritis of left median nerve Neuritis of right median nerve Bipolar disorder, unspecified ([facility]) Bipolar disorder, unspecified Bipolar disorder, unspecified ([facility])- Primary Bipolar disorder, unspecified Neuritis of right median nerve Neuritis of left median nerve Morbid (severe) obesity due to excess calories ([facility]) Body mass index (BMI) 38.0-38.9, adult Anxiety Anxiety state, unspecified PAH (pulmonary artery hypertension) ([facility]) Other chronic pulmonary heart diseases Chronic rhinitis Gastroesophageal reflux disease, unspecified whether esophagitis present Needs flu shot Need for prophylactic vaccination and inoculation against influenza Bipolar 1 disorder ([facility])- Primary NIRMALA (obstructive sleep apnea) Obstructive sleep apnea (adult) (pediatric) PAH (pulmonary artery hypertension) ([facility]) Other chronic pulmonary heart diseases Chronic right hip pain Morbid (severe) obesity due to excess calories ([facility]) Anxiety Anxiety state, unspecified Chronic rhinitis Body mass index (BMI) 38.0-38.9, adult Anxiety- Primary Anxiety state, unspecified Morbid (severe) obesity due to excess calories ([facility]) Mixed hyperlipidemia ([facility]) Mixed hyperlipidemia Body mass index (BMI) 38.0-38.9, adult Bipolar disorder, unspecified ([facility]) Bipolar disorder, unspecified Pulmonary hypertension, unspecified ([facility]) Crohn's disease of both small and large intestine without complications ([facility]) NIRMALA (obstructive sleep apnea) Obstructive sleep apnea (adult) (pediatric) PAH (pulmonary artery hypertension) ([facility]) Other chronic pulmonary heart diseases Gastro-esophageal reflux disease without esophagitis S/P total right hip arthroplasty Encounter for screening mammogram for malignant neoplasm of breast Gastroesophageal reflux disease, unspecified whether esophagitis present Dizziness and giddiness documented in this encounter [facility] N[facility]ative - Reported* Type Description Date Medical History acid reflux Surgical History biopsy of intestines Surgical History hysterectomy [employer] Other Hospital Discharge instructions No data available for this section [facility] Progress note No data available for this section [facility] Diagnostic Procedure Only (Routine) - Closed Specialty Diagnoses / Procedures Referred By Contac t Referred To Contact XR IMAGING Diagnoses Pain in right hip Procedures XR HIP GENERAL 3V PELV/AP/LAT RIGHT RADEX HIP UNILATERAL WITH PELVIS 2-3 VIEWS Mayito Gifford PA-C [address] [place], [place] [phone] Xr Imaging [place] [address] Referral ID Status Reason Start Date Expiration Date V isits Requested Visits Authorized [id number] Closed Auto-Generate d Referral 03/15/2024 04/14/2025 1 1 [facility] for referral (narrative)* - Pending Review Specialty Diagnoses / Procedures Referred By Contac t Referred To Contact Physical Therapy Diagnoses Status post right hip replacement Procedures CONSULT TO PHYSICAL THERAPY Lois Mckeon MD [address] [place], [place] [id number] Referral ID Status Reason Start Date Expiration Date V isits Requested Visits Authorized [id number] Pending Review 04/16/2024 07/15/2024 1 1 [facility] for referral (narrative)* Outpatient Procedure (Routine) - New Request Specialty Diagnoses / Procedures Referred By Contac t Referred To Contact [facility] Diagnoses Pre-op evaluation Procedures ECG COMPLETE ECG ROUTINE ECG W/LEAST 12 LDS W/I&R Negrita Tejeda, MAP AND CHART MOUNTER.CERAMIC MOLD DESIGNER [address] [place] [address] [facility] [address] [place] [address] Referral ID Status Reason Start Date Expiration Date Visits Requested Visits Authorized [id number] New Request Auto-Generat ed Referral 06/05/2025 1 1 [facility] for referral (narrative)* Diagnostic Procedure Only (Routine) - Pending Review Specialty Diagnoses / Procedures Referred By Contac t Referred To Contact XR IMAGING Diagnoses Status post right hip replacement Procedures XR HIP GENERAL 3V PELV/AP/LAT RIGHT RADEX HIP UNILATERAL WITH PELVIS 2-3 VIEWS Mayito Gifford PA-C [address] [place], [place] [phone] Xr Imaging [facility] Referral ID Status Reason Start Date Expiration Date Visits Requested Visits Authorized [id number] Pending Review Auto-Generat ed Referral 07/22/2024 08/21/2025 1 1 [facility] for visit Narrative* Diagnostic Procedure Only (Routine) - Pending Review Specialty Diagnoses / Procedures Referred By Wan t Referred To Contact XR IMAGING Diagnoses Status post right hip replacement Procedures XR HIP GENERAL 3V PELV/AP/LAT RIGHT RADEX HIP UNILATERAL WITH PELVIS 2-3 VIEWS Mayito Gifford PA-C [address] [place], [place] [phone] Xr Imaging [facility] Referral ID Status Reason Start Date Expiration Date Visits Requested Visits Authorized [id number] Pending Review Auto-Generat ed Referral 07/22/2024 08/21/2025 1 1 [facility] Summary Purpose Family History No Family [...] FoundNo Family History Records Found Advance Directives Documents on File Type Date Recorded 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 Advance Directive(s) 12/12/2020 8:14 PM Documents on File Type Date Recorded 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 Advance Directive(s) 12/12/2020 8:14 PM Reason for Referral Specialty Diagnoses / Procedures Referred By Contac t Referred To Contact MR IMAGING Diagnoses Pain of right hip Procedures MRI HIP WO IVCON RIGHT MRI ANY JT LOWER EXTREM W/O CONTRAST Lois Le MD [address] [place] [address] Mr Imaging [place] [address] Referral ID Status Reason Start Date Expiration Date Visits Requested Visits Authorized [id number] New Request Auto-Generat ed Referral 03/19/2024 04/18/2025 1 1 Specialty Diagnoses / Procedures Referred By Contac t Referred To Contact Diagnoses Trochanteric bursitis of right hip Tendinopathy of right gluteal region Chronic bilateral low back pain without sciatica Lumbar spondylosis Procedures CONSULT TO CHIROPRACTOR OFFICE/OUTPATIENT [facility] 60-74 MINUTES Shiraz Roy DO [address] [place] [address] Referral ID Status Reason Start Date Expiration Date Visits Requested Visits Authorized [id number] Pending Review PCP Requested Referral 02/21/2022 02/21/2023 1 1 Specialty Diagnoses / Procedures Referred By Contac t Referred To Contact Sports Medicine Diagnoses Trochanteric bursitis of right hip Tendinopathy of right gluteal region Procedures CONSULT TO SPORTS MEDICINE OFFICE/OUTPATIENT [facility] 60-74 MINUTES Shiraz Roy DO [address] [place] [address] Referral ID Status Reason Start Date Expiration Date Visits Requested Visits Authorized [id number] Authorized PCP Requested Referral 02/21/2022 02/21/2023 1 1 Specialty Diagnoses / Procedures Referred By Contac t Referred To Contact [facility] Diagnoses Trochanteric bursitis of right hip Lumbago-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 Procedures CONSULT TO [facility] OFFICE/OUTPATIENT [facility] 60-74 MINUTES Jorge Luis Page, [place] [phone] Referral ID Status Reason Start Date Expiration Date Visits Requested Visits Authorized [id number] Authorized PCP Requested Referral 01/17/2022 01/17/2023 1 1 Reason evaluate and treat. Gluteal tendon tear vs greater trochanteric bursitis Please refer to Bang Christian MD, Orthopaedic Surgery, [facility] Diagnosis 1 Trochanteric bursiti s, right hip (M70.61) Referral Organization [facility] [place] [facility] Referring Provider First Name Alexis Referring Provider Last Name Dany II Referring Provider Specialty Orthopedic Surgery Referred Organization [facility] Referred Address [address],[place], [place],[address] Referred Provider Specialty ORTHOPEDIC S URGEON Referral [...] section and content) DATE CREATED AUTHOR 12/19/2017 [facility] DATE CREATED AUTHOR AUTHOR'S ORGANIZ ATION 12/08/2021 [facility] DATE CREATED AUTHOR AUTHOR'S ORGANIZ ATION 12/04/[address] [facility] DATE CREATED AUTHOR AUTHOR'S ORGANIZ ATION 09/12/2023 [facility] DATE CREATED AUTHOR AUTHOR'S ORGANIZ ATION 11/29/2023 [facility] DATE CREATED AUTHOR AUTHOR'S ORGANIZ ATION 03/10/2024 [facility] DATE CREATED AUTHOR AUTHOR'S ORGANIZ ATION 04/12/2024 [facility] EPIC DATE CREATED AUTHOR AUTHOR'S ORGANIZ ATION 05/20/2024 [facility] DATE CREATED AUTHOR AUTHOR'S ORGANIZ ATION 07/07/2024 [facility] DATE CREATED AUTHOR AUTHOR'S ORGANIZ ATION 08/01/2024 [facility] DATE CREATED AUTHOR AUTHOR'S ORGANIZ ATION 08/24/2024 [facility] REASON FOR VISIT (unrecogniz ed section and content) Reason Comments New Specialty Diagnoses / Procedures Referred By Contac t Referred To Contact Orthopedics / ORTHOPAEDIC SURGERY Diagnoses Greater Trochanteric Bursitis right hip vs Gluteal Tendon tear *OUTSIDE IMG PT TO BRING Procedures LANA NEW NO XRAY Alexis Saenz II, MD [address] [place] [address] Jorge Luis Page, DO [address] [place] [phone] Referral ID Status Reason Start Date Expiration Date Visits Requested Visits Authorized [id number] Authorized Financial Clearance Not Required 12/24/2021 01/23/2022 99 99 Reason Comments Follow Up Reason Comments New Patient Evaluation Lower back pain/R ight side sciatica Specialty Diagnoses / Procedures Referred By Contac t Referred To Contact [facility] Diagnoses Trochanteric bursitis of right hip Lumbago-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 Procedures CONSULT TO [facility] OFFICE/OUTPATIENT NEW HIGH MDM 60-74 MINUTES Jorge Luis Page, DO [address] [place] [phone] Referral ID Status Reason Start Date Expiration Date V isits Requested Visits Authorized [id number] Closed PCP Requested Referral 01/17/2022 01/17/2023 1 1 Reason Comments New Surgical consult Reason Comments Radio Gen RMP Specialty Diagnoses / Procedures Referred By Contac t Referred To Contact XR IMAGING Diagnoses Pain in right hip Procedures XR HIP GENERAL 3V PELV/AP/LAT RIGHT RADEX HIP UNILATERAL WITH PELVIS 2-3 VIEWS Mayito Gifford PA-C [address] [place] [address] [place] [address] Referral ID Status Reason Start Date Expiration Date V isits Requested Visits Authorized [id number] Closed Auto-Generate d Referral 03/15/2024 04/14/2025 1 1 Reason Comments Established Patient Surgical consult Results - Mri Surgical consult Reason Comments Schedule Surgery Reason Comments Bipolar Reason Comments Question See note Reason Comments Established Patient Surgical consult Post Op Surgical consult Source Comments (unrecognize d section and content) In the event this informatio n is protected by the Federal Confidentiality of Alcohol and Drug Abuse Patient Records regulations: The Federal rules restrict any use of the information to criminally investigate or prosecute any alcohol or drug abuse patient.[facility] the event this information is protected by the Federal Confidentiality of Alcohol and Drug Abuse Patient Records regulations: The Federal rules restrict any use of the information to criminally investigate or prosecute any alcohol or drug abuse patient.[facility] the event this information is protected by the Federal Confidentiality of Alcohol and Drug Abuse Patient Records regulations: The Federal rules restrict any use of the information to criminally investigate or prosecute any alcohol or drug abuse patient.[facility] the event this information is protected by the Federal Confidentiality of Alcohol and Drug Abuse Patient Records regulations: The Federal rules restrict any use of the information to criminally investigate or prosecute any alcohol or drug abuse patient.[facility] Hospital[facility] the event this information is protected by the Federal Confidentiality of Alcohol and Drug Abuse Patient Records regulations: The Federal rules restrict any use of the information to criminally investigate or prosecute any alcohol or drug abuse patient.[facility] the event this information is protected by the Federal Confidentiality of Alcohol and Drug Abuse Patient Records regulations: The Federal rules restrict any use of the information to criminally investigate or prosecute any alcohol or drug abuse patient.[facility] Hospital[facility] the event this information is protected by the Federal Confidentiality of Alcohol and Drug Abuse Patient Records regulations: The Federal rules restrict any use of the information to criminally investigate or prosecute any alcohol or drug abuse patient.[facility] Hospital[facility] the event this information is protected by the Federal Confidentiality of Alcohol and Drug Abuse Patient Records regulations: The Federal rules restrict any use of the information to criminally investigate or prosecute any alcohol or drug abuse patient.[facility] Hospital[facility] the event this information is protected by the Federal Confidentiality of Alcohol and Drug Abuse Patient Records regulations: The Federal rules restrict any use of the information to criminally investigate or prosecute any alcohol or drug abuse patient.[facility] HospitalIn the event this information is protected by the Federal Confidentiality of Alcohol and Drug Abuse Patient Records regulations: The Federal rules restrict any use of the information to criminally investigate or prosecute any alcohol or drug abuse patient.[facility] HospitalIn the event this information is protected by the Federal Confidentiality of Alcohol and Drug Abuse Patient Records regulations: The Federal rules restrict any use of the information to criminally investigate or prosecute any alcohol or drug abuse patient.[facility] HospitalIn the event this information is protected by the Federal Confidentiality of Alcohol and Drug Abuse Patient Records regulations: The Federal rules restrict any use of the information to criminally investigate or prosecute any alcohol or drug abuse patient.[facility] Care Teams (unrecognized sec tion and content) Sales Associate Cashier Relationship Specialty Start Date End Date Essie Ryan CNP PCP - General Family Practice 07/22/16 Adán Torres Obstetrics 07/22/16 Alexis Saenz II, MD [address] [place] [address] Referring Orthopedics 12/13/21 Sales Associate Cashier Relationship Specialty Start Date End Date Essie Ryan CNP PCP - General Family Practice 07/22/16 Adán Torres DO Obstetrics 07/22/16 Alexis Saenz II, MD [address] [place] [address] Referring Orthopedics 12/13/21 Sales Associate Cashier Relationship Specialty Start Date End Date Essie Ryan CERAMIC MOLD DESIGNER PCP - General Family Practice 07/22/16 Adán Torres DO Obstetrics 07/22/16 Alexis Saenz II, MD [address] [place] [address] Referring Orthopedics 12/13/21 Sales Associate Cashier Relationship Specialty Start Date End Date Essie Ryan CNP PCP - General Family Medicine 07/22/16 Adán Torres DO Obstetrics 07/22/16 Alexis Saenz II, MD [address] [place] [address] Referring Orthopedics 12/13/21 Angel Delgado DO [address] [place] [address] Referring Orthopedics 03/08/24 Sales Associate Cashier Relationship Specialty Start Date End Date Essie Ryan CNP PCP - General Family Medicine 07/22/16 Adán Torres DO Obstetrics 07/22/16 Alexis Saenz II, MD [address] [place] [address] Referring Orthopedics 12/13/21 Angel Delgado DO [address] [place] [address] Referring Orthopedics 03/08/24 Sales Associate Cashier Relationship Specialty Start Date End Date Essie Ryan CNP PCP - General Family Medicine 07/22/16 Adán Torres DO Obstetrics 07/22/16 Alexis Saenz II, MD [address] [place] [address] Referring Orthopedics 12/13/21 Angel Delgado DO [address] [place] [address] Referring Orthopedics 03/08/24 Sales Associate Cashier Relationship Specialty Start Date End Date Yuriy Martins MD [address] [place] [id number] PCP - General Family Medicine 08/17/23 Essie Ryan NP [address] [place] [phone] PCP - [facility] 12/25/23 Essie Ryan NP [address] [place] [address] Nurse Practitioner Family Medicine 08/17/23 Sales Associate Cashier Relationship Specialty Start Date End Date Yuriy Martins MD [address] [place] [phone] PCP - General Family Medicine 08/17/23 Essie Ryan NP [address] [place] [address] PCP - [facility] 12/25/23 Essie Ryan NP [address] [place] [address] Nurse Practitioner Family Medicine 08/17/23 Sales Associate Cashier Relationship Specialty Start Date End Date Essie Ryan CERAMIC MOLD DESIGNER PCP - General Family Medicine 07/22/16 Adán Torres DO Obstetrics 07/22/16 Alexis Saenz II, MD [address] [place] [address] Referring Orthopedics 12/13/21 Angel Delgado DO [address] [place] [address] Referring Orthopedics 03/08/24 Sales Associate Cashier Relationship Specialty Start Date End Date Essie Ryan CNP PCP - [facility] 07/22/16 Adán Torres DO Obstetrics 07/22/16 Alexis Saenz II, MD [address] [place] [address] Referring Orthopedics 12/13/21 Angel Delgado DO [address] [place] [address] Referring Orthopedics 03/08/24 Sales Associate Cashier Relationship Specialty Start Date End Date Essie Ryan NP [address] [place] [phone] PCP - [facility] 12/25/23 Yuriy Martins MD [address] [place] [address] PCP - General Family Medicine 05/29/24 Essie Ryan NP [address] [place] [address] Nurse Practitioner Family Medicine 08/17/23 Sales Associate Cashier Relationship Specialty Start Date End Date Essie Ryan NP [address] [place] [address] PCP - [facility] 12/25/23 Yuriy Martins MD [address] [place] [address] PCP - General Family Medicine 05/29/24 Essie Ryan NP [address] [place] [address] Nurse Practitioner [facility] 08/17/23 Sales Associate Cashier Relationship Specialty Start Date End Date Essie Ryan CNP PCP - General Family Medicine 07/22/16 Adán Torres DO Obstetrics 07/22/16 Alexis Saenz II, MD [address] [place] [address] Referring Orthopedics 12/13/21 [place] Delgado DO [address] [place] [address] Referring Orthopedics 03/08/24 Sales Associate Cashier Relationship Specialty Start Date End Date Essie Ryan CNP PCP - General Family Medicine 07/22/16 Adán Torres DO Obstetrics 07/22/16 Alexis Saenz II, MD [address] [place] [address] Referring Orthopedics 12/13/21 [place] Delgado DO [address] [place] [address] Referring Orthopedics 03/08/24 Sales Associate Cashier Relationship Specialty Start Date End Date Essie Ryan NP [address] [place] [address] PCP - [facility] 12/25/23 Yuriy Martins MD [address] [place] [address] PCP - General Family Medicine 05/29/24 Essie Ryan NP [address] [place] [address] Nurse Practitioner Family Medicine 08/17/23 Sales Associate Cashier Relationship Specialty Start Date End Date Essie Ryan NP [address] [place] [address] PCP - [facility] 12/25/23 Yuriy Martins MD [address] [place] [address] PCP - General Family Medicine 05/29/24 Essie Ryan NP [address] [place] [address] Nurse Practitioner Family Medicine 08/17/23 Sales Associate Cashier Relationship Specialty Start Date End Date Yuriy Martins MD [address] [place] [address] PCP - General Family Medicine 08/17/23 Essie Ryan NP [address] [place] [address] PCP - [facility] 12/25/23 Essie Ryan NP [address] [place] [address] Nurse Practitioner Family Medicine 08/17/23 Sales Associate Cashier Relationship Specialty Start Date End Date Yuriy Martins MD [address] [place] [address] PCP - General Family Medicine 08/17/23 Essie Ryan NP [address] [place] [address] PCP - [facility] 12/25/23 Essie Ryan NP [address] [place] [address] Nurse Practitioner Family Medicine 08/17/23 Sales Associate Cashier Relationship Specialty Start Date End Date Yuriy Martins MD [address] [place] [address] PCP - General Family Medicine 08/17/23 Essie Ryan NP [address] [place] [address] PCP - [facility] 12/25/23 Essie Ryan NP [address] [place] [address] Nurse Practitioner Family Medicine 08/17/23 Sales Associate Cashier Relationship Specialty Start Date End Date Yuriy Martins MD [address] [place] [address] PCP - General Family Medicine 08/17/23 Essie yRan NP [address] [place] [address] PCP - [facility] 12/25/23 Essie Ryan NP [address] [place] [address] Nurse Practitioner Family Medicine 08/17/23 Sales Associate Cashier Relationship Specialty Start Date End Date Essie Ryan NP [address] [place] [address] PCP - [facility] 12/25/23 Yuriy Martins MD [address] [place] [address] PCP - General Family Medicine 05/29/24 Essie Ryan NP [address] [place] [address] Nurse Practitioner Family Medicine 08/17/23 Sales Associate Cashier Relationship Specialty Start Date End Date Essie Ryan CNP PCP - General Family Medicine 07/22/16 Adán Torres DO Obstetrics 07/22/16 Alexis Saenz II, MD [address] [place] [address] Referring Orthopedics 12/13/21 [place] Delgado DO [address] [place] [address] Referring Orthopedics 03/08/24 Sales Associate Cashier Relationship Specialty Start Date End Date Essie Ryan CNP PCP - General Family Medicine 07/22/16 Adán Torres DO Obstetrics 07/22/16 Alexis Saenz II, MD [address] [place] [address] Referring Orthopedics 12/13/21 Angel Delgado DO [address] [place] [address] Referring Orthopedics 03/08/24 Sales Associate Cashier Relationship Specialty Start Date End Date Essie Ryan NP [address] [place] [address] PCP - [facility] 12/25/23 Yuriy Martins MD [address] [place] [address] PCP - General Family Medicine 05/29/24 Essie Ryan NP [address] [place] [address] Nurse Practitioner Family Medicine 08/17/23 Sales Associate Cashier Relationship Specialty Start Date End Date Essie Ryan NP [address] [place] [address] PCP - [facility] 12/25/23 Yuriy Martins MD [address] [place] [address] PCP - General Family [facility] 05/29/24 Essie Ryan NP [address] [place] [address] Nurse Practitioner Family Medicine 08/17/23 FOR RECORDS PERTAINING TO PATIENTS WHO ARE [...] BE BASED ON THE PRIMARY CLINICAL RECORDS. [facility]. provides no warranty or guarantee of the accuracy or completeness of information in this document.
[2024-08-29 07:38] LABS: Basophils Absolute Auto 0.1 10^3/uL (0.0-0.1); Basophils Percent Auto 0.9 % (0.2-2.0); Eosinophils Absolute Auto 0.6 10^3/uL (0.0-0.7); Eosinophils Percent Auto 8.7 % (0.9-7.0); Hematocrit 40.1 % (36.0-48.0); Hemoglobin 12.8 g/dL (12.0-16.0); Immature Granulocytes Abs Auto 0.01 10^3/uL (0.00-0.03); Immature Granulocytes Pct Auto 0.1 % (0.0-0.5); Lymphocytes Absolute Auto 2.7 10^3/uL (1.2-3.8); Lymphocytes Percent Auto 38.7 % (20.5-60.0); Mean Corpuscular HGB Conc 31.9 g/dL (29.9-35.2); Mean Corpuscular Volume 90.7 fL (81.0-99.0); Mean Platelet Volume 10.7 fL (9.5-13.5); Monocytes Absolute Auto 0.7 10^3/uL (0.3-0.8); Monocytes Percent Auto 10.1 % (1.7-12.0); Neutrophils Absolute Auto 2.9 10^3/uL (1.4-6.5); Neutrophils Percent Auto 41.5 % (43.0-75.0); Platelet Count 282 10^3/uL (150-450); Red Blood Count 4.42 10^6/uL (4.20-5.40); Red Cell Distribution Width 12.8 % (11.0-15.0)
[2024-08-29 08:23] LABS: Percent Iron Saturation 16.9 %
[2024-08-29 08:29] LABS: Alanine Aminotransferase 14 U/L (14-59); Albumin Globulin Ratio 0.8; Albumin Level 3.2 g/dL (3.4-5.0); Alkaline Phosphatase 81 U/L (46-116); Anion Gap 12.5; Aspartate Amino Transferase 16 U/L (15-37); BUN Creatinine Ratio 15.1; Bilirubin Total 0.3 mg/dL (0.2-1.0); Calcium 9.5 mg/dL (8.5-10.1); Carbon Dioxide 26.7 mmol/L (21.0-32.0); Chloride 105 mmol/L (98-107); Chol HDL Ratio 3.8; Cholesterol 214 mg/dL (<=200); Estimated GFR (African America >60 (>=60 mL/min/1.73m^2); Estimated GFR (Non-African Ame >60 (>=60 mL/min/1.73m^2); Globulin 3.8 g/dL; Glucose 98 mg/dL (74-106); HDL Cholesterol 56 mg/dL (40-60); Potassium 4.2 mmol/L (3.5-5.1); Sodium 140 mmol/L (136-145); Triglycerides 117 mg/dL (<=150); VLDL CHOLESTEROL 23.4 mg/dL
[2024-08-30 05:07] LABS: Transferrin 278 mg/dL (192-364)
== END 2024-08-29 07:05 | disposition home or self-care (01) ==
LOC: LAB 07:06
PROVIDERS: PCP Nurse Practitioner; Visit Provider Nurse Practitioner
DX: R42 Dizziness and giddiness (principal); E78.2 Mixed hyperlipidemia
CPT/HCPCS: 36415; 80053; 80061; 82728; 83540; 83550; 84466; 85025

== ENCOUNTER 2024-09-09 09:51 | Outpatient (OUT) | payer OTHER, SELFPAY ==
--- NOTE | 2024-09-09 09:55 | US_ITS ---
The [address] [address] Patient Name: GAMAL FIGUEROA MRN: [id number] date: 1975 Sex: F Assigned Patient Location: US Current Patient Location: US Accession/Order Number: [id number] Exam Date: 09/09/2024 11:27 Report Date: 09/09/2024 11:28 At the request of: NADIR ONEILL Procedure: US renal BI BILATERAL RENAL AND BLADDER ULTRASOUND CLINICAL HISTORY: Kidney Stone COMPARISON: None FINDINGS: Estimation of renal size is approximately 10.8 cm on the right and 11 cm on the left. Bilateral nephrolithiasis largest measuring 12 mm involving the right kidney. No contour for a mass or hydronephrosis. The urinary bladder is partially distended with a volume of 192 ml. No shadowing stone or focal lesion. US/US renal BI IMPRESSION: BILATERAL NEPHROLITHIASIS WITHOUT HYDRONEPHROSIS. Impression dictated by: Robby Lowe Jr. DMaribelOMaribel09/09/2024 11:28 AM Dictation Location: [place] [address] Electronically authenticated by: [id number] Y Date: 09/09/2024 11:28
--- NOTE | 2024-09-09 09:55 | XR_ITS ---
The [address] [address] Patient Name: GAMAL FIGUEROA MRN: [id number] date: 1975 Sex: F Assigned Patient Location: US Current Patient Location: US Accession/Order Number: [id number] Exam Date: 09/09/2024 12:27 Report Date: 09/09/2024 12:29 At the request of: NADIR ONEILL Procedure: XR abdomen 1V KUB: CLINICAL INFORMATION: Kidney stone follow-up. COMPARISON: Ultrasound performed earlier. FINDINGS: Single stones are noted within both kidneys, largest measuring 9 mm involving the right kidney. Presumed pills are seen projecting over the right colon. No bowel obstruction or free air. Phleboliths are seen within the pelvis. Osseous structures demonstrate degenerative change. XR/XR abdomen 1V IMPRESSION: BILATERAL NEPHROLITHIASIS. Impression dictated by: Robby Lowe Jr., DMaribelOMaribel09/09/2024 12:29 PM Dictation Location: [place] [address] Electronically authenticated by: [id number] Y Date: 09/09/2024 12:29
== END 2024-09-09 09:52 | disposition home or self-care (01) ==
LOC: US 09:52
PROVIDERS: PCP Nurse Practitioner; Visit Provider Physician Assistant
DX: N20.0 Calculus of kidney (principal)
CPT/HCPCS: 74018; 76775

== ENCOUNTER 2024-10-04 08:44 | Outpatient (OUT) | payer OTHER, SELFPAY ==
--- NOTE | 2024-10-04 08:47 | MM_ITS ---
Patient Name: GAMAL FIGUEROA MR#: [id number] : 1975 Exam Date: 10/04/2024 Ordering Doctor: NIURKA yRan CNP RADIOLOGY REPORT PROCEDURE: MM TOMOSYNTHESIS SCREENING BI COMPARISON: MM TOMOSYNTHESIS SCREENING BI, 08/16/2023. MG MAMM SCREEN 3D GRACIE CAD, 02/09/2022. MG MAMM SCREEN 3D GRACIE CAD, 09/17/2020. MG MAMM SCREEN GRACIE W CAD, 11/14/2017. INDICATIONS: Screening Calculator Name NCI Breast Cancer Risk Assessment Tool 5 Year Breast Cancer Risk 1.90% Lifetime Breast Cancer Risk 17.90% Personal Breast Cancer No Personal Ovarian Cancer No Treatments None Family Cancers Aunt-maternal with breast cancer at age ~40; Aunt-maternal with breast cancer at age 60; Aunt-maternal with breast cancer at age 60; Mother with breast cancer at age 65; Father with throat cancer at age 73; Aunt-paternal with colon cancer at age 55. LOCATION: The [facility] BREAST COMPOSITION: There are scattered areas of fibroglandular density. FINDINGS: RIGHT BREAST: No significant suspicious finding. LEFT BREAST: No significant suspicious finding. DIAGNOSTIC CATEGORY 1--NEGATIVE. RECOMMENDATIONS: ROUTINE MAMMOGRAM AND CLINICAL EVALUATION IN 12 MONTHS. PLEASE NOTE: A NORMAL MAMMOGRAM DOES NOT EXCLUDE THE POSSIBILITY OF BREAST CANCER. A CLINICALLY SUSPICIOUS PALPABLE LUMP SHOULD BE BIOPSIED. Dictated by: Vipin Iniguez DO on 10/04/2024 at 12:25 Approved by: Vipin Iniguez DO on 10/04/2024 at 12:29
--- OUTSIDE RECORDS SUMMARY | 2024-10-04 08:55 | XMS_ITS | CCD ---
Author Organization [facility] Care Team Providers Care Special Procedures Tech Name Role Phone PHYSICIAN, DEFAULT Unavailable Unavailable PHYSICIAN, DEFAULT Unavailable Unavailable AICHHOLZ, ESSIE Unavailable Unavailable PHYSICIAN, DEFAULT Unavailable Unavailable PHYSICIAN, DEFAULT Unavailable Unavailable AICHHOLZ, ESSIE Unavailable Unavailable PHYSICIAN, DEFAULT Unavailable Unavailable PHYSICIAN, DEFAULT Unavailable Unavailable CHARLIHJACOB ESSIE Unavailable Unavailable Alexis Saenz II Unavailable Aichsienaz Essie BAH Primary Care Provider Adán Torres Unavailable Dany ARDON MD, Robert M Unavailable Adán Torres DO Unavailable [phone] ESSIE RYAN Primary Care Physician Aichholz Essie BAH Primary Care Provider Adán Torres DO Unavailable [phone] Dany ARDON MD, Robert M Unavailable CAN VALERA Attending Unavailable CAN VALERA Consulting Unavailable AICHHOLKamila, NIURKA ESSIE Primary Care Unavailable CAN VALERA Admitting Unavailable ANDREW ., DR MARKO Stafford Admitting Unavailable ANDREW ., DR MARKO Stafford Attending Unavailable AICHHOLZ, MOTOR EQUIPMENT SERGEANT ESSIE Primary Care Unavailable ARTURO VANEGAS Consulting Unavailable ANDREW ., DR MARKO Stafford Attending Unavailable MORALES ., DR MARKO Stafford Consulting Unavailable AICHHOLKamila, MOTOR EQUIPMENT SERGEANT ESSIE Primary Care Unavailable ANDREW ., DR MARKO Stafford Admitting Unavailable SHARONA JIMENEZ Attending Unavailable SHARONA JIMENEZ Consulting Unavailable SHARONA JIMENEZ Admitting Unavailable AICHHOLZ, MOTOR EQUIPMENT SERGEANT ESSIE Primary Care Unavailable PAULETTE PHIPPS Consulting Unavailable AICHHOLZ, [facility] Primary Care Unavailable GARCIA ., DR BAILEY Attending Unavailable GARCIA ., DR BAILEY Consulting Unavailable GARCIA ., DR BAILEY Admitting Unavailable WEST, DR PAULETTE León Consulting Unavailable MORALES ., DR MARKO Stafford Admitting Unavailable MORALES ., DR MARKO Stafford Attending Unavailable MORALES ., DR MARKO Stafford Consulting Unavailable [facility], Primary Care Unavailable DELANEY ., ARTURO Consulting Unavailable MORALES ., DR MARKO Stafford Admitting Unavailable MORALES ., DR MARKO Stafford Attending Unavailable AICHOL, Primary Care Unavailable YOBANY ., DR RASMUSSEN Attending Unavailable AICHOLZ, [facility] Primary Care Unavailable YOBANY ., DR RASMUSSEN Admitting Unavailable WEST, DR PAULETTE León Consulting Unavailable YOBANY ., DR RASMUSSEN Consulting Unavailable [facility], Primary Care Unavailable GARCIA ., DR BAILEY Admitting Unavailable GARCIA ., DR BAILEY Attending Unavailable GARCIA ., DR BAILEY Consulting Unavailable ZIEBER, DR PREET Palafox Consulting Unavailable TIMMIS, DR RED Attending Unavailable TIMMIS, DR RED Consulting Unavailable TIMMIS, DR RED Admitting Unavailable AICHHOLZ, [facility] Primary Care Unavailable ZIEBER, DR PREET Palafox Consulting Unavailable TIMMIS, DR RED Attending Unavailable TIMMIS, DR RED Consulting Unavailable TIMMIS, DR RED Admitting Unavailable AICHHOLZ, [facility] Primary Care Unavailable ZIEBER, DR PREET Palafox Consulting Unavailable TIMMIS, DR RED Attending Unavailable TIMMIS, DR RED Consulting Unavailable AICHOLZ, [facility] Primary Care Unavailable TIMMIS, DR RED Admitting Unavailable WEST, DR PAULETTE León Consulting Unavailable AICHHOLZ, [facility] Primary Care Unavailable GARCIA ., DR BAILEY Attending Unavailable GARCIA ., DR BAILEY Consulting Unavailable GARCIA ., DR BAILEY Admitting Unavailable ZIEBER, DR PREET Palafox Consulting Unavailable LAKSHMIPATHY ., NARENDRANMONA Attending Marleni vailable AICHHOLZ, [facility] Primary Care Unavailable LAKSHMIPATHY ., BYRON Admitting Marleni vailable MORALES ., DR MARKO Stafford Admitting Unavailable MORALES ., DR MARKO Stafford Attending Unavailable MORALES ., DR MARKO Stafford Consulting Unavailable AICHOLZ, [facility] Primary Care Unavailable DELANEY ., ARTURO Consulting Unavailable AICHHOLZ, MOTOR EQUIPMENT SERGEANT ESSIE Primary Care Unavailable COLE, DR PAULETTE León Consulting Unavailable GARCIA ., DR BAILEY Attending Unavailable GARCIA ., DR BAILEY Admitting Unavailable AICHHOLZ, MOTOR EQUIPMENT SERGEANT ESSIE Consulting Unavailable YOBANY ., DR RASMUSSEN Attending Unavailable YOBANY ., DR RASMUSSEN Consulting Unavailable AICHHOLZ, MOTOR EQUIPMENT SERGEANT ESSIE Primary Care Unavailable YOBANY ., DR RASMUSSEN Admitting Unavailable AICHHOLZ, MOTOR EQUIPMENT SERGEANT ESSIE Primary Care Unavailable AICHHOLZ, MOTOR EQUIPMENT SERGEANT ESSIE Attending Unavailable AICHHOLZ, MOTOR EQUIPMENT SERGEANT ESSIE Consulting Unavailable AICHHOLZ, MOTOR EQUIPMENT SERGEANT ESSIE Admitting Unavailable DELANEY ., ARTURO Admitting Unavailable DELANEY ., ARTURO Attending Unavailable AICHHOLZ, MOTOR EQUIPMENT SERGEANT ESSIE Primary Care Unavailable ZIEBER, DR PREET Palafox Consulting Unavailable DELANEY ., ARTURO Consulting Unavailable TIMMIS, DR RED Attending Unavailable TIMMIS, DR RED Consulting Unavailable TIMMIS, DR RED Admitting Unavailable AICHHOLZ, MOTOR EQUIPMENT SERGEANT ESSIE Primary Care Unavailable ZIEBER, DR PREET Palafox Consulting Unavailable DIAB ., EDNA Attending Unavailable DIAB ., EDNA Admitting Unavailable MARKER ., DR JIMÉNEZ Consulting Unavailable AICHHOLZ, MOTOR EQUIPMENT SERGEANT ESSIE Primary Care Unavailable DIAB ., EDNA Consulting Unavailable OWOYELE, MISTY Consulting Unavailable AICHHOLZ, MOTOR EQUIPMENT SERGEANT ESSIE Primary Care Unavailable AICHHOLZ, MOTOR EQUIPMENT SERGEANT ESSIE Attending Unavailable AICHHOLZ, MOTOR EQUIPMENT SERGEANT ESSIE Consulting Unavailable AICHHOLZ, MOTOR EQUIPMENT SERGEANT ESSIE Admitting Unavailable ZIEBER, DR PREET Palafox Consulting Unavailable MORALES ., DR MARKO Stafford Attending Unavailable MORALES ., DR MARKO Stafford Admitting Unavailable AICHHOLZ, MOTOR EQUIPMENT SERGEANT ESSIE Primary Care Unavailable MICHAEL, DR MCCARTHY Referring Unavailable JOSE ., DR BAILEY Consulting Unavailable MORALES ., DR MARKO Stafford Consulting Unavailable Juliana Block Unavailable PJ GANNON Attending Unavailable [...] Unavailable AICHHOLZ, ESSIE J Primary Care Unavailable Aichholz MOTOR EQUIPMENT SERGEANT, Essie Fely Primary Care Provider Adán Torres DO Unavailable Dany ARDON MD, Alexis Cummins Unavailable Angel Delgado DO Unavailable Lakshmi FELIX, Yuriy Primary Care Provider Aichholz POWER SCREWDRIVER OPERATOR, Essie Unavailable Aichholz POWER SCREWDRIVER OPERATOR, Essie Unavailable Lakshmi FELIX, Yuriy Primary Care Provider [phone] LOIS MCKEON Admitting Unavailable LOIS MCKEON Attending Unavailable AICHHOLZ, ESSIE FELY Primary Care Unavailable REGINE MTZ Consulting Unavailabl e Aichholz GRINDER SET UP OPERATOR SURFACE-MOTOR EQUIPMENT SERGEANT, Essie Magdaleno Primary Care Provider LOIS MCKEON Attending Unavailable AICHHOLZ, ESSIE SPANGLER Primary Care Unavailable LOIS MCKEON Attending Unavailable AICHHOLZ, ESSIE FELY Primary Care Unavailable MAYITO GIFFORD Referring Unavailable AICHHOLZ, ESSIE FELY Primary Care Unavailable LOIS MCKEON Attending Unavailable AICHHOLZ, ESSIE FELY Primary Care Unavailable LOIS MCKEON Referring Unavailable AICHHOLZ, ESSIE FELY Primary Care Unavailable NEGRITA TEJEDA Referring Unavailable AICHHOLZ, ESSIE FELY Primary Care Unavailable LOIS MCKEON Referring Unavailable AICHHOLZ, ESSIE FELY Primary Care Unavailable Aichholz GRINDER SET UP OPERATOR SURFACE-MOTOR EQUIPMENT SERGEANT, Essie J Primary Care Provider SHELBY ESSIE J Referring Unavailable AICHHOLZ, ESSIE J Primary Care Unavailable JEFF ROSSI Admitting Unavailable JEFF ROSSI Attending Unavailable AICHHOLZ, ESSIE J Primary Care Unavailable LAYNE HOGUE Attending Unavailable AICHHOLZ, ESSIE J Primary Care Unavailable JEFF ROSSI Referring Unavailable AICHHOLZ, ESSIE J Primary Care Unavailable WERNING, JEFF W Admitting Unavailable WERNING, JEFF W Attending Unavailable WERNING, JEFF W Referring Unavailable AICHHOLZ, ESSIE J Primary Care Unavailable WERNING, JEFF W Attending Unavailable AICHHOLZ, ESSIE J Referring Unavailable AICHHOLZ, ESSIE J Primary Care Unavailable WERNING, JEFF W Attending Unavailable AICHHOLZ, ESSIE J Referring Unavailable AICHHOLZ, ESSIE J Primary Care Unavailable WERNING, JEFF W Attending Unavailable AICHHOLZ, ESSIE J Referring Unavailable AICHHOLZ, ESSIE J Primary Care Unavailable LESLIE JUNG Attending Unavailable ANGELICA, LESLIE Medina Attending Unavailable Jose GARCIA Attending Unavailable EDUARDO, TRINH Attending Unavailable SRAVANI, TINO Referring Unavailable EDUARDO, AJAZ Attending Unavailable SRAVANI, TINO Attending Unavailable FAWWAD, LUNDBERG Attending Unavailable RIAN, JANET Attending Unavailable FAWWAD, LUNDBERG Attending Unavailable TATTERSALEX, JAMIE Attending Unavailable ESTELA, ANGEL Referring Unavailable TATTERSALL, JAMIE Attending Unavailable DELGADO, ANGEL Referring Unavailable DONALDO, KOLE Attending Unavailable DELGADO, ANGEL Referring Unavailable BLACKSTON, JOSIAS T Attending Unavailable [...] Allergy Type Date of Onset Reaction(s) Facility (11 sources) Penicillins; Translations: [PENICILLINS] Drug allergy (disorder) 09-21-19 12 Fever [facility] Repository (3 sources) Penicillin V Drug Allergy Fever [facility] Other (20 sources) Penicillins Drug Allergy 07-27-19 17 Unknown, Fever [facility] (9 sources) History of - penicillin allergy (context-depend ent category); Translations: [H/O: penicillin allergy] Drug allergy [facility] (1 source) Penicillin Drug Allergy Fever [facility] Other (20 sources) Penicillins Drug Intolerance 06-13-20 14 Other, [...] mo ut every 6 hours as needed. ARIPiprazole 15 mg oral tablet (20 sources) Atypical Antipsychotic Start: 04-10-20 24 End: 10-31-19 25 take 1 tablet by mouth once daily ARIPiprazole (Abilify) 15 MG tablet Indications: Bipolar disorder, unspecified (CMS/HCC) Take 1 tablet (15 mg) by mouth Daily 30 tablet 3 09/30/2024 10/30/2024 Active Start: 01-30-2024 End: 04-10-2024 take 1 tablet by mouth once daily ARIPiprazole (Abilif y) 10 MG tablet Indications: Bipolar disorder, unspecified (CMS/HCC) Take 1 tablet (10 mg) by mouth Daily 30 tablet 1 02/29/2024 03/30/2024 Active take 1 tablet by billie once daily for depression ARIPiprazole (ABILIFY) 30 mg tablet Indications: major depressive disorder treatment adjunct Take 1 tablet (30 mg total) by mouth nightly Indications: additional treatment for major depressive disorder. Active aspirin 81 mg delayed release oral [...] sources) HMG-CoA Reductase Inhibitor Start: 03-06-2024 End: 10-30-2024 take 1 tablet by mouth in the evening atorvastatin (Lipitor) 80 MG tablet Indications: Mixed hyperlipidemia (CMS/HCC) Take 1 tablet (80 mg) by mouth in the evening 30 tablet 3 09/30/2024 10/30/2024 Active Start: 04-22-2023 take 1 tablet by billie th once daily atorvastatin (LIPITOR) 10 mg tablet Indications: hypercholesterolemia Take 1 tablet (10 mg total) by mouth nightly Indications: high cholesterol. 04/22/2023 Active Start: 10-13-2020 End: 06-05-2024 take [...] oral tablet (20 sources) Start: 08-28-2024 End: 10-30-2024 take 0.5 tablet by mouth in the morning busPIRone (Buspar) 15 MG tablet Indications: Anxiety Take 0.5 tablets (7.5 mg) by mouth in the morning and 0.5 tablets (7.5 mg) before bedtime. 60 tablet 3 09/30/2024 10/30/2024 Active Start: 05-29-2023 busPIRone 7.5 mg oral [...] Daily 30 tablet 5 02/29/2024 03/30/2024 Active cetirizine (ZyrT EC) 5 mg tablet Take 1 tablet (5 mg total) by mouth as needed for allergies. Active Comment on above: Take 10 mg by mouth once daily. docusate sodium 100 mg oral capsule (2 sources) Start: take 1 capsule by mouth twice daily docusate sodium (COLACE) 100 mg capsule Take 1 capsule by mouth two times a day. Take colace while taking narcotics to decrease your risk of constipation 60 capsule 06/30/2024 Active meloxicam 15 mg oral tablet (20 sources) Nonsteroidal Anti-inflammatory Drug Start: End: take 1 tablet by mouth once daily meloxicam (Mobic) 15 MG tablet Indications: Osteoarthritis Take 1 tablet (15 mg) by mouth Daily 30 tablet 3 09/30/2024 10/30/2024 Active Start: 12-09-2021 End: 08-28-2024 take 1 tablet by mouth once daily in the morning meloxicam (MOBIC) 15 mg tablet Indications: Chronic right hip pain take 1 tablet by mouth every morning 30 tablet 1 11/13/2023 Active naloxone hydrochloride 40 mg/ml nasal spray [...] sources) Proton Pump Inhibitor Start: 10-10-2023 End: 10-30-2024 take 1 capsule by mouth before mealtime omeprazole (PriLOSEC) [address] capsule Indications: Gastroesophageal reflux disease, unspecified whether esophagitis present Take 1 capsule (40 mg) by mouth in the morning. Take before meals. 30 capsule 5 09/30/2024 10/30/2024 Active Start: 12-23-2010 Prilosec Oral, Daily, Refills(s) 0 Start Date: 12/23/10 Status: Ordered PriLOSEC 10 MG a s directed Orally Active Comment on above: Take 40 mg by mouth once daily. pantoprazole 20 mg delayed release oral tablet (2 sources) Proton Pump Inhibitor Start: 5 take 1 tablet by mouth once daily pantoprazole DR (PROTONIX) 20 mg tablet Take 1 tablet by mouth once daily for 14 days. 14 tablet 06/30/2024 Active polyethylene glycol 3350 067788 mg / potassium chloride 1480 mg / sodium bicarbonate 5720 mg / sodium chloride 49116 mg powder for oral solution (3 sources) Osmotic Laxative Start: 3 NuLYTELY [place] oral powder for reconstitution See Instructions, 1 EA, Refill(s) 0, See physician instructions prior to procedure., [facility] #[id number], 155, cm, 11/24/22 13:47:00 EDT, Height/Length Dosing, 88.2, kg, 11/24/22 13:47:00 EDT, Weight Dosing Start Date: 11/28/22 Status: Ordered traMADol hydrochloride 50 mg oral tablet (12 sources) Opioid Agonist Start: 4 take 1 tablet by mouth every six hours traMADol (Ultram) 50 MG tablet Take 50 mg by mouth every 6 (six) hours 02/19/2024 Active Completed/Discontinued Medications Medication Drug Class(es) Dates Sig (Normalized) Sig (Original) ambrisentan 10 mg oral tablet (8 sources) Endothelin Receptor Antagonist End: 05-06-2024 take [...] mL injection carBAMazepine 200 mg oral tablet (18 sources) Mood Stabilizer End: 06-05-2024 carBAMazepine (TEGRETOL) [...] 2 tab(s), Refills(s) 0, [facility]: [id number], 155, cm, 03/03/22 15:04:00 EDT, Height/Length Dosing, 90, kg, 02/25/22 10:22:00 EDT, [place]... Start Date: 03/03/22 Status: Ordered citalopram 20 mg oral tablet (18 sources) Serotonin Reuptake Inhibitor End: 06-05-2024 take [...] once daily. colchicine 0.6 mg oral tablet (8 sources) End: 05-06-20 take 1 tablet by mouth in the morning colchicine (COLCRYS) 0.6 mg tablet Take 1 tablet (0.6 mg total) by mouth in the morning. Verified with [facility] . 05/06/2024 Discontinued (Therapy completed) 1 ml dexamethasone phosphate 4 mg/ml injection (1 source) Corticosteroid Start: 01-01-20 End: 01-01-20 dexAMETHasone sodium phosphate 4 mg injection (DECADRON) Start: 12-31-2021 End: 12-31-2021 dexAMETHasone sodium phospha te 4 mg injection (DECADRON) mupirocin 0.02 mg/mg topical ointment (4 sources) RNA Synthetase Inhibitor Antibacterial Start: 06-05-2024 End: 08-28-2024 mupirocin (Bactroban) 2 % ointment apply 0.5 in with q-tip to each nostril TWICE DAILY (IN THE MORNING and IN THE EVENING) FOR 5 DAYS prior to and including day OF surgery 06/05/2024 08/28/2024 Discontinued (Therapy completed) pravastatin sodium 40 mg oral tablet (8 sources) HMG-CoA Reductase Inhibitor End: 05-06-2024 take 1 tablet by mouth once daily pravastatin (PRAVACHOL) 40 mg tablet Indications: hyperlipidemia Take 1 tablet (40 mg total) by mouth nightly Indications: excessive fat in the blood. hyperlipidemia Verified [facility] 05/06/2024 Discontinued (Therapy completed) sulfamethoxazole 800 mg / trimethoprim 160 mg oral tablet (3 sources) Dihydrofolate Reductase Inhibitor Antibacterial, Sulfonamide Antimicrobial Start: 06-09-2024 End: 08-28-2024 take 1 tablet by mouth once in the morning, then take 1 tablet by mouth once at bedtime sulfamethoxazole-tr imethoprim (Bactrim DS) 800-160 MG per tablet Take 1 tablet by mouth in the morning and 1 tablet before bedtime. 06/09/2024 08/28/2024 Discontinued (Therapy completed) tamsulosin hydrochloride 0.4 mg oral capsule (3 sources) alpha-Adrenergic Roderick Start: 06-09-2024 End: 08-28-2024 take 1 capsule by mouth once daily tamsulosin (Flomax) 0.4 MG 24 hr capsule Take by mouth Daily 06/09/2024 08/28/2024 Discontinued (Therapy completed) Problems Active Problems Problem Classification Problem Date Documented Date Episodic/Chronic Anxiety disorders (20 sources) Anxiety disorder; Translations: [Anxiety] Onset: 07-25-2023 12-23-2010 Chronic Cardiac dysrhythmias (4 sources) Palpitations; Translations: [PALPITATIONS] Onset: 11-22-2022 Episodic Conditions associated with dizziness or vertigo (12 sources) Dizziness and giddiness; Translations: [Dizziness and [...] Onset: 06-14-2022 03-19-2024 Chronic Other acquired deformities (20 sources) Contracture of joint of left ankle; Translations: [Contracture, left ankle] Onset: 01-30-2024 01-30-2024 Chronic Other connective tissue disease (2 sources) History of repair of hip joint; Translations: [Presence of right artificial hip joint] 04-16-2024 Chronic Other connective tissue disease (13 sources) History of total hip arthroplasty; Translations: [...] 02-29-2024 02-29-2024 Chronic Other nervous system disorders (20 sources) Chronic pain; Translations: [Other chronic pain] Onset: 01-14-2023 Resolved: 01-14-2023 01-14-2023 Chronic Other nervous system disorders (1 source) Other acute postprocedural pain; Translations: [Acute postoperative pain] Onset: 07-01-2024 Episodic Other non-traumatic joint disorders (20 sources) [...] 2023 2023 Chronic Other upper respiratory infections (20 sources) Chronic sinusitis; Translations: [Other chronic sinusitis] [...] (pediatric)] Onset: 05-09-2024 Chronic Residual codes; unclassified (2 sources) Sleep apnea; Translations: [Sleep Apnea] Onset: 09-27-2024 Chronic Residual codes; unclassified (1 source) Acquired [...] hip pain [M25.551, G89.29] Onset: 09-01-2023 Unclassified (1 source) Post-op Onset: 05-17-2024 Unclassified (1 source) inspire consult Onset: 04-19-2024 Unclassified (2 sources) New Patient; Translations: [New [...] Episodic Immunizations and screening for infectious disease (19 sources) Needs influenza immunization; Translations: [Encounter for immunization] Onset: 04-10-2024 04-10-2024 Episodic Intestinal obstruction without hernia (20 sources) Enterolith of small intestine; Translations: [Other impaction of intestine] Onset: 12-14-2020 Resolved: 08-28-2024 12-16-2020 Episodic Nonspecific chest pain (20 sources) Chest pain; Translations: [Chest pain, unspecified] Onset: 02-09-2012 Resolved: 01-14-2023 01-14-2023 Episodic Other connective tissue disease (6 sources) Trochanteric bursitis, right hip; Translations: [TROCHANTERIC BURSITIS RIGHT HIP] Onset: 12-09-2021 Resolved: 12-09-2021 Episodic Other connective tissue disease (20 sources) Pain of left heel; Translations: [Pain in left foot] Onset: 10-25-2023 10-25-2023 Episodic Other connective tissue disease (20 sources) Pain in left foot; Translations: [Pain in left foot] Onset: 11-08-2023 11-08-2023 Episodic Other connective tissue disease (20 sources) Disorder of Achilles tendon; Translations: [Other specified disorders of tendon, left ankle and foot] Onset: 10-25-2023 Resolved: 10-25-2023 10-25-2023 Episodic Other lower respiratory disease (20 sources) Disorder of lung; Translations: [Other disorders of lung] Onset: 04-05-2013 Resolved: 08-28-2024 01-14-2023 Episodic Other lower respiratory disease (20 sources) Dyspnea; Translations: [Dyspnea, unspecified] Onset: 04-20-2012 01-14-2023 Episodic Other non-traumatic joint disorders (8 sources) Pain in right hip; Translations: [PAIN IN RIGHT HIP] Onset: 11-17-2021 Resolved: 11-17-2021 Episodic Other non-traumatic joint disorders (1 source) Osteophyte, right hip; Translations: [OSTEOPHYTE RIGHT HIP] Onset: 07-15-2022 Episodic Other nutritional; endocrine; and metabolic disorders [...] Onset: 02-09-2022 Episodic Other upper respiratory infections (20 sources) [...] Onset: 06-11-2022 Episodic Pleurisy; pneumothorax; pulmonary collapse (20 sources) Pleurisy; Translations: [Pleurisy] Onset: 04-05-2013 01-14-2023 Episodic Residual codes; unclassified (1 source) Family history of malignant neoplasm of breast; Translations: [FAMILY HX MALIG NEOPLASM OF BREAST] Onset: 02-10-2022 Episodic Residual codes; unclassified (1 source) Family history of malignant neoplasm of digestive organs; Translations: [FAM HX MALIG NEOPLASM DIGESTIV ORGN] Onset: 02-10-2022 Episodic Spondylosis; intervertebral disc disorders; other back problems (20 sources) Chronic low back pain; Translations: [Chronic [...] (20 sources) Disease caused by 2019-nCoV; Translations: [COVID-19] Onset: 01-24-2022 Resolved: 09-28-2023 07-13-2023 Episodic Viral infection (2 sources) COVID-19; Translations: [COVID-19] Onset: 01-27-2022 Results Test Name Value Interpretation Reference Range Facility Follow-Upon 09-27-2024 Follow-Up [id number] Stacey Sahu 1975 F Date Provider Department Center 09/27/2024 [facility] Family History Problem Relation Age of Onset Coronary artery disease Father Family Status - Relation Status Age at Father Level of Service:96148 LA OFFICE/OUTPATIENT ESTABLISHED MOD MDM 30 MIN Reason for Visit and Comments: Sleep Apnea [348] [facility] 09-12-2024 36 Scheduled patient for Inspire device activation on 09/27 at 9:00 am. Normal [facility] 09-10-2024 36 Left voicemail for patient: are you available to come in for your Inspire activation on September 27 at 9:00 am? Could potentially do it a bit later if that would work better. [facility] US RENAL BIon 09-09-[address] [address] Ultrasound Report Signed Patient: STACEY SAHU MR#: [id number] : 1975 Acct:[id number] Age/Sex: 49 / F ADM Date: 09/09/24 Loc: US Attending Dr: Leslie ONEILL Ordering Physician: Leslie Jung Date of Service: 09/09/24 Procedure(s): US renal BI Accession Number(s): [id number] cc: Essie Ryan NP; Leslie Jung [address] [address] Patient Name: STACEY SAHU MRN: [facility]:[id number] date: 1975 Sex: F Assigned Patient Location: US Current Patient Location: US Accession/Order Number: [id number] Exam Date: 09/09/2024 11:27 Report Date: 09/09/2024 11:28 At the request of: LESLIE ONEILL Procedure: US renal BI BILATERAL RENAL AND BLADDER ULTRASOUND CLINICAL HISTORY: Kidney Stone COMPARISON: None FINDINGS: Estimation of renal size is approximately 10.8 cm on the right and 11 cm on the left. Bilateral nephrolithiasis largest measuring 12 mm involving the right kidney. No contour for a mass or hydronephrosis. The urinary bladder is partially distended with a volume of 192 ml. No shadowing stone or focal lesion. US/US renal BI IMPRESSION: BILATERAL NEPHROLITHIASIS WITHOUT HYDRONEPHROSIS. Impression dictated by: Robby Lowe Jr., DMaribelOMaribel09/09/2024 11:28 AM Dictation Location: [place] [address] Electronically authenticated by: [id number] Y Date: 09/09/2024 11:28 Dictated By: Robby Lowe M.D. Signed By: 09/09/24 1131 DD/ 1128 TD/TT: Biometry Teacher: [facility] Radiology, Radiologist, - 09/09/2024 [place] [address] Ultrasound Report Signed Patient: STACEY SAHU MR#: [id number] : 1975 Acct:[id number] Age/Sex: 49 / F ADM Date: 09/09/24 Loc: US Attending Dr: Leslie ONEILL Ordering Physician: Leslie Jung Date of Service: 09/09/24 Procedure(s): US renal BI Accession Number(s): [id number] cc: Essie Ryan NP; Leslie Jung The [address] [address] Patient Name: STACEY SAHU MRN: [facility]:[id number] date: 1975 Sex: F Assigned Patient Location: US Current Patient Location: US Accession/Order Number: [id number] Exam Date: 09/09/2024 11:27 Report Date: 09/09/2024 11:28 At the request of: LESLIE ONEILL Procedure: US renal BI BILATERAL RENAL AND BLADDER ULTRASOUND CLINICAL HISTORY: Kidney Stone COMPARISON: None FINDINGS: Estimation of renal size is approximately 10.8 cm on the right and 11 cm on the left. Bilateral nephrolithiasis largest measuring 12 mm involving the right kidney. No contour for a mass or hydronephrosis. The urinary bladder is partially distended with a volume of 192 ml. No shadowing stone or focal lesion. US/US renal BI IMPRESSION: BILATERAL NEPHROLITHIASIS WITHOUT HYDRONEPHROSIS. Impression dictated by: Robby Lowe Jr., D.O.09/09/2024 11:28 AM Dictation Location: [place] [address] Electronically authenticated by: [id number] Y Date: 09/09/2024 11:28 Dictated By: Robby Lowe M.D. Signed By: 09/09/24 1131 DD/ 1128 TD/TT: Biometry Teacher: [facility] [employer] Radiology Study observation (narrative) [facility] US RENAL BIOrdered By: Radio logist Radiology on 09-09-2024 [facility] [employer] Work Phone: XR ABDOMEN 1Von 09-09-2024 [place] [address] XRay Report Signed Patient: STACEY SAHU MR#: [id number] : 1975 Acct:[id number] Age/Sex: 49 / F ADM Date: 09/09/24 Loc: US Attending Dr: Leslie ONEILL Ordering Physician: Leslie Jung Date of Service: 09/09/24 Procedure(s): XR abdomen 1V Accession Number(s): [id number] cc: Essie Ryan NP; Leslie Jung [address] [address] Patient Name: STACEY SAHU MRN: [id number] date: 1975 Sex: F Assigned Patient Location: US Current Patient Location: US Accession/Order Number: [id number] Exam Date: 09/09/2024 12:27 Report Date: 09/09/2024 12:29 At the request of: LESLIE ONEILL Procedure: XR abdomen 1V KUB: CLINICAL INFORMATION: Kidney stone follow-up. COMPARISON: Ultrasound performed earlier. FINDINGS: Single stones are noted within both kidneys, largest measuring 9 mm involving the right kidney. Presumed pills are seen projecting over the right colon. No bowel obstruction or free air. Phleboliths are seen within the pelvis. Osseous structures demonstrate degenerative change. XR/XR abdomen 1V IMPRESSION: BILATERAL NEPHROLITHIASIS. Impression dictated by: Robby Lowe Jr., D.O.09/09/2024 12:29 PM Dictation Location: [place] [address] Electronically authenticated by: [id number] Y Date: 09/09/2024 12:29 Dictated By: Robby Lowe M.D. Signed By: 09/09/24 1231 DD/ 1229 TD/TT: Biometry Teacher: [facility] Radiology, Radiologist, MD - 09/09/2024 [place] [address] XRay Report Signed Patient: STACEY SAHU MR#: [id number] : 1975 Acct:[id number] Age/Sex: 49 / F ADM Date: 09/09/24 Loc: US Attending Dr: Leslie ONEILL Ordering Physician: Leslie Jung Date of Service: 09/09/24 Procedure(s): XR abdomen 1V Accession Number(s): [id number] cc: Essie Ryan POWER SCREWDRIVER OPERATOR; Leslie Jung [address] [address] Patient Name: STACEY SAHU MRN: [facility]:[id number] date: 1975 Sex: F Assigned Patient Location: US Current Patient Location: US Accession/Order Number: [id number] Exam Date: 09/09/2024 12:27 Report Date: 09/09/2024 12:29 At the request of: LESLIE ONEILL Procedure: XR abdomen 1V KUB: CLINICAL INFORMATION: Kidney stone follow-up. COMPARISON: Ultrasound performed earlier. FINDINGS: Single stones are noted within both kidneys, largest measuring 9 mm involving the right kidney. Presumed pills are seen projecting over the right colon. No bowel obstruction or free air. Phleboliths are seen within the pelvis. Osseous structures demonstrate degenerative change. XR/XR abdomen 1V IMPRESSION: BILATERAL NEPHROLITHIASIS. Impression dictated by: Robby Lowe Jr., D.O.09/09/2024 12:29 PM Dictation Location: [facility] Electronically authenticated by: [id number] Y Date: 09/09/2024 12:29 Dictated By: Robby Lowe M.D. Signed By: 09/09/24 1231 DD/ 1229 TD/TT: Biometry Teacher: [facility] Radiology Study observation (narrative) [facility] XR ABDOMEN 1VOrdered By: Rusty rosalesogpuja Radiology on 09-09-2024 [facility] [employer] Work Phone: Reminderson 09-02-2024 Reminders Reminders -- From: Sally Linda To: EU - Administrative; Sent: 11/28/2023 09:53:09 EDT Show up: 02/25/2024 09:52:00 EDT Subject: Ambulatory Reminder Due Date/Time: 11/24/2024 09:53:00 EDT Reminder/Recall Patient needs scheduled for a 1 yr f/u with KUB and BEN with [facility], due in 11/2024 Patient is scheduled for December 10, 2024 with [facility] in [place], pt needs BEN and KUB order to [facility]. -- From: Essie Berry (EU - Administrative) To: EU - Clinical; Sent: 08/28/2024 12:48:53 EST Show up: 08/28/2024 12:48:00 EST Subject: RE: Ambulatory Reminder Order were faxed to [facility] ALL CBC WITH AUTO DIFFon BASOPHILS ABSOLUTE AUTO 0.1 [facility] Basophils/100 WBC (Bld) 0.9 % 0.2 - 2.0 % [facility] Eosinophils/100 WBC (Bld) 8.7 % High 0.9 - 7.0 % [facility] Erythrocyte distribution width (RBC) [Ratio] 12.8 % 11.0 - 15.0 % [facility] Hematocrit (Bld) [Volume fraction] 40.1 % 36.0 - 48.0 % [facility] Hemoglobin (Bld) [Mass/Vol] 12.8 g/dL 12.0 - 16.0 g/dL [facility] IMMATURE GRANULOCYTES ABS AUTO 0.01 [facility] Immature granulocytes/100 WBC (Bld) 0.1 % 0.0 - 0.5 % [facility] Interpretation and review of laboratory results Abnormal [facility] LYMPHOCYTES ABSOLUTE AUTO 2.7 [facility] Lymphocytes/100 WBC (Bld) 38.7 % 20.5 - 60.0 % [facility] MCH (RBC) [Entitic mass] 29 pg 26.7 - 34.[address] [facility] MCHC (RBC) [Mass/Vol] 31.9 g/dL 29.9 - 35.2 g/dL [facility] MCV (RBC) [Entitic vol] 90.7 fL 81.0 - 99.[address] [facility] MONOCYTES ABSOLUTE AUTO 0.7 [facility] Monocytes/100 WBC (Bld) 10.1 % 1.7 - 12.0 % [facility] NEUTROPHILS ABSOLUTE AUTO 2.9 [facility] Neutrophils/100 WBC (Bld) 41.5 % Low 43.0 - 75.0 % [facility] Platelet mean volume (Bld) [Entitic vol] 10.7 fL 9.5 - 13.5 fL [facility] TBH EO # 0.6 [facility] TB PLT 282 [facility] TB RBC 4.42 [facility] WBC 7 [facility] CNOVon 07-30-2024 CNOV Office Visit (ORTHST) ---- STACEY SAHU ([id number]) 1975 F Date Time Provider Department 07/30/24 2:10 PM LOIS MCKEON During your visit today, [...] [Z96.641] 07/01/2024 Encounter Status:Closed by LOIS MCKEON on 07/30/24 [facility] No Panel InformationOrdered By: Radiologist Radiology on 07-30-2024 [employer] Work Phone: XR HIP 3V PELV+ AP/LAT [...] which may be external to the patient. Biometry Teacher: [employer] Transcribe Date/Time: Jul 30 2024 2:30P Dictated by : OLVIN HOLDER MD This examination was interpreted and the report reviewed and electronically signed by: OLVIN HOLDER MD on Jul 30 2024 2:32PM EST [id number]^ SI^ACN [facility]iology, Radiologist, MD - 07/30/2024 * * *Final Report* * [...] which may be external to the patient. Biometry Teacher: [facility] Transcribe Date/Time: Jul 30 2024 2:30P Dictated by : OLVIN HOLDER MD This examination was interpreted and the report reviewed and electronically signed by: OLVIN HOLDER MD on Jul 30 2024 2:32PM EST [id number]^ SI^ACN [facility] XR HIP 3V PELV+ AP/LAT [...] which may be external to the patient. Biometry Teacher: [facility] Transcribe Date/Time: Jul 30 2024 2:30P Dictated by : OLVIN HOLDER MD This examination was interpreted and the report reviewed and electronically signed by: OLVIN HOLDER MD on Jul 30 2024 2:32PM EST [id number] ACN Normal [facility] Radiology Study observation (narrative) [facility] XR Pelvis and Hip - right AP and Lateral frogon 07-30-2024 IMPRESSION: Postoperative changes of right total hip arthroplasty. Nonspecific rounded/disc-like radiodensities overlying the right lower quadrant and iliac wing, which may be external to the patient. Biometry Teacher: [facility] Transcribe Date/Time: Jul 30 2024 2:30P [...] superior iliac wing. DIVISION OF RADIOLOGY Provider, [facility] - 07/30/2024 * * *Final Report* * [...] which may be external to the patient. Biometry Teacher: AG[employer] Transcribe Date/Time: Jul 30 2024 2:30P Dictated by : OLVIN HOLDER MD This examination was interpreted and the report reviewed and electronically signed by: OLVIN HOLDER MD on Jul 30 2024 2:32PM EST [facility] Radiology Study observation (narrative) [facility] HEALTHon 07-01-2024 [facility] HNO ID: [id number] Author: JOSELO GÓMEZ RT(R) Service: Radiology Author [...] PATIENT PRESENTS WITH AN IMPLANTABLE OR ATTACHED TASSEL CLIPPER: No RADIOLOGY DEPARTMENT: General X-ray: Exam(s) Completed: Pelvis X-Ray: Pelvis General AP PERIPHERAL IV DATA: Not applicable SIGNED BY: RT Baltazar Cela(R) July 01, 2024 10:58 AM [facility] POSTPROC EVALon 025 [facility] POSTPROC EVAL HNO ID: [id number] Author: DANA HOWE MD Service: Anesthesiology Author Type: Anesthesiologist Type: Anesthesia Postprocedure Evaluation Filed: 07/01/2024 12:06 Note Text: POST ANESTHESIA EVALUATION NOTE : 1975 Procedure Summary Date: 07/01/24 Room / Location: OR03 / OR Anesthesia Start: 0756 Anesthesia Stop: 6 Procedure: ARTHROPLASTY REPLACE JOINT TOTAL HIP (Right: [...] July 01, 2024 TIME: 12:06 PM CSN: [id number] [facility] ANES PRE-OPon 07-01-2024 ANES PRE-OP HNO ID: [id number] Author: DAAN HOWE MD Service: Anesthesiology Author Type: Anesthesiologist Type: Anesthesia Preprocedure Evaluation Filed: 07/01/2024 07:31 Note Text: ANESTHESIOLOGY DAY OF SURGERY NOTE : 1975 Procedure Information Date/Time: 07/01/24 09 Procedure: ARTHROPLASTY REPLACE JOINT TOTAL HIP (Right: [...] July 01, 2024 TIME: 7:27 AM CSN: [id number] [facility] BRIEF OP NOTon 07-01-2024 BRIEF OP NOT HNO ID: [id number] Author: MONIK CONSTANTINO MD Service: Orthopaedic Surgery Author Type: Resident Type: Brief Op Note Filed: 07/01/2024 09:54 Note Text: BRIEF OP NOTE LOG ID: [id number] Surgery/Procedure Date: 07/01/2024 Incision/Procedure Start Time: 8:43 AM Incision Close/Procedure End Time: Surgeon(s)/Procedur alist(s) and Investigator Welfare(s): Surgeons and Role: * Lois Mckeon MD [...] 01, 2024 TIME: 9:54 AM PAGER/CONTACT #: [phone] [facility] CASE MGT INIT Nata 2024 [facility]: [id number] Author: ALISIA GILMORE RN Service: ? Author Type: Registered Nurse Type: Care Mgt Initial Assessment Filed: 07/01/2024 13:31 Note Text: CARE MANAGEMENT: ASSESSMENT AND DISCHARGE PLAN SERVICE DATE: July 01, 2024 SERVICE TIME: 1:29 pm PCP: Essie Ryan CNP, MOTOR EQUIPMENT SERGEANT Primary Contact: Extended Emergency Contact Information Primary Emergency Contact: Sruthi Sahu Address: [address] [place] [address] Relation: Spouse Admission Status: Extended Recovery Insurance Provider: [facility] PLAN MEDICAID OF [place] Discharge Planning requested by: Per Department Practice Potential Transition Plans Home;Home Care Advance Directives Current Advance Directive: None Hinging Machine Operator Attempted to Assist with AD Completion: Yes [...] General wellness, Be able to go home [place] of Choice Explained: [place] of Choice Given: Yes Level of Care [...] DATE: July 01, 2024 TIME: 1:29 PM [facility] CONSULTon 07-01-2024 CONSULT HNO ID: [id number] Author: REGINE MTZ MD Service: General Internal Medicine Author Type: Physician Type: Consults Filed: 07/01/2024 14:04 Note Text: INTERNAL MEDICINE CONSULT HISTORY AND PHYSICAL PLEASE DO NOT REMOVE FROM THE CHART OR MODIFY PRINTED COPY Patient Name: Stacey Sahu PRIMARY CARE PHYSICIAN: Essie Ryan MOTOR EQUIPMENT SERGEANT, MOTOR EQUIPMENT SERGEANT CONSULTING PHYSICIAN: Lois Mckeon MD MD DATE [...] ovaries intact TUBAL LIGATION HX 2003 FAMILY HISTORY: FAMILY HISTORY Problem Relation Age [...] flush bag 20 (more content not included)... [facility] NURSING PROGon 07-01-2024 NURSING PROG HNO ID: [id number] Author: HODAN NICOLAS, PATIENCE Service: Nursing Author Type: Registered Nurse Type: Nursing Progress Note Filed: 07/01/2024 15:53 Note Text: Discharge education completed with patient and spouse. All questions answered at this time. Pt left unit via wheelchair with transport staff. [facility] OPERATIVE NOon 07-01-2024 OPERATIVE NO HNO ID: [id number] Author: LOIS MCKEON MD Service: Orthopaedic Surgery Author Type: Physician Type: Operative Report Filed: 07/01/2024 10:57 Note Text: OPERATIVE/PROCEDURE REPORT LOG ID: [id number] Surgery/Procedure Date: 07/01/2024 Incision/Procedure Start Time: 8:43 AM Incision Close/Procedure End Time: 10:11 AM Surgeon(s)/Tiffany garcia(s) and Investigator Welfare(s): Surgeons and Role: * Lois Mckeon MD [...] Implant Name Type Inv. Item Serial No. Quarry Extraction Worker Lot No. LRB No. Used Action PIN STEINMANN 3/16IN STAINLESS STEEL 9IN FIXATION TROCAR POINT ONE END - [id number] Pin PIN STEINMANN 3/16IN STAINLESS STEEL 9IN FIXATION TROCAR POINT ONE END BRASSELER [id number] Right 1 Non-Implant INSERT ACETABULAR 32MM 0D D HIP X3 TRIDENT STERILE LATEX FREE - [id number] Joint - Hip INSERT ACETABULAR 32MM 0D D HIP X3 TRIDENT STERILE LATEX FREE AYDEE [id number] Right 1 Implanted SHELL TRIDENT II 48MM D TRITANIUM ACETABULAR 3 SCREW HOLE CLUSTER STERILE - [id number] Joint - Hip SHELL TRIDENT II 48MM D TRITANIUM ACETABULAR 3 SCREW HOLE CLUSTER STERILE [employer] [id number] Right 1 Implanted SCREW TRIDENT II 6.5MM 30MM BONE LOW PROFILE HEXAGONAL STERILE - [id number] Screw SCREW TRIDENT II 6.5MM 30MM BONE LOW PROFILE HEXAGONAL STERILE [employer] [id number] Right 1 Implanted STEM FEMORAL 8X99MM SIZE 2 HIGH INSIGNIA COLLARED - [id number] Joint - Hip STEM FEMORAL 8X99MM SIZE 2 HIGH INSIGNIA COLLARED AYDEE [id number] Right 1 Implanted HEAD V40 32MM -4MM OFFSET TAPER BIOLOX DELTA FEMORAL HIP - [id number] Joint - Hip HEAD V40 32MM -4MM OFFSET TAPER BIOLOX DELTA FEMORAL HIP [employer] [id number] Right 1 Implanted Problem List: ACTIVE PROBLEM LIST (spontaneous vaginal delivery) x 4 Crohn's disease without complication (HCC) [id number] Pulmonary Htn (Hcc) Obese Nirmala (Obstructive Sleep [...] suture. Subcutaneous ti (more content not included)... [facility] THERAPY NTon 07-01-2024 THERAPY NT HNO ID: [id number] Author: YUMIKO MARAVILLA, OT/L Service: Occupational Therapy Author Type: Occupational Therapist Type: Therapy (PT/OT/Speech/Resp) Filed: 07/01/2024 14:14 Note Text: Occupational Therapy Evaluation Summary SERVICE DATE: 07/01/2024 SERVICE TIME: 1350 to 1405 ROOM: [id number]- OT 6 Clicks Score: 22 Total Joint [...] of Occupational Therapy, Standing Balance to Improve [place] with ADLs/Self-Care, Transfer - Car, Toileting , [...] Minimal Assistance, Additional Information with use of embossing calender operator, family plans to assist with socks Toileting [...] Management, Functional Mobility Training SIGNATURE: Yumiko Maravilla OT/Jose PATIENT NAME: Stacey Sahu DATE: July 01, 2024 TIME: 2:14 PM [facility] THERAPY NT HNO ID: [id number] Author: ANIYA SHAH PT Service: Physical Therapy Author Type: Physical Therapist Type: Therapy (PT/OT/Speech/Resp) Filed: 07/01/2024 13:52 Note Text: Physical Therapy Evaluation Summary SERVICE DATE: 07/01/2024 SERVICE TIME: 1307 to 1346 ROOM: [place] [address] PT 6 Clicks Score: 22 Total Joint [...] on feet TREATMENT INTERVENTIONS Evaluation, Therapeutic Exercise (01187), Gait Training (58966) Timed Code Treatment (minutes): 24 Skilled Treatment [...] Patient does not have a cane. Used SAFETY AND HEALTH MANAGER to simulate cane GOALS Patient will demonstrate [...] Transfers, Stair Training, Walker Training SIGNATURE: Aniya Shah PT PATIENT NAME: Stacey Sahu DATE: July 01, 2024 TIME: 1:51 PM [facility] XR PELVIS 1V APon 07-01-2024 XR PELVIS [...] recent surgery. Please see detailed operative report. Biometry Teacher: [employer] Transcribe Date/Time: Jul 01 2024 11:05A Dictated by : CHELY YU MD This examination was interpreted and the report reviewed and electronically signed by: CHELY YU MD on Jul 01 2024 11:05AM EST [id number] [id number] [facility] XR PELVIS 1V AP * * *Final [...] Intraoperative examination for surgical planning and documentation. Biometry Teacher: [facility] Transcribe Date/Time: Jul 01 2024 11:01A Dictated by : RADHA CARVAJAL DO This examination was interpreted and the report reviewed and electronically signed by: RADHA CARVAJAL DO on Jul 01 2024 11:02AM EST [id number] ACN [facility] URINE CULTURE, ROUTINEon Bacteria identified Cx Nom (U) Urine Culture, Routine [facility] Bacteria identified Cx Nom (U) Mixed urogenital guillermina [facility] Bacteria identified Cx Nom (U) 10,000-25,000 colony forming units per mL [facility] Bacteria identified Cx Nom (U) Performed at: [facility] Bacteria identified Cx Nom (U) [address] [place], [place] [id number] [facility] Bacteria identified Cx Nom (U) Hockey Instructor: Avni Schmid PhD, Phone: [phone] [facility] Basic metabolic 2000 panelon 06-05-2024 Anion gap [Moles/Vol] 11 mmol/L Normal 8-15 [facility] Comment on above: Order Comment: Speci men Type: BLOOD SPECIMENOrdering Facility: [facility] Address: [address] [place] [address] Performed By: #### 5 0190-8, 91649-0, 4 ####[facility] LABCLIA [id number] [place] [address] [place] Calcium [Mass/Vol] 9.6 mg/dL Normal 8.5-10.2 [facility] Comment on above: Order Comment: Speci men Type: BLOOD SPECIMENOrdering Facility: [facility] Address: [address] [place] [address] Performed By: #### 5 0190-8, 45242-3, 4 ####[facility] LABCLIA [id number] [place] [address] [place] Chloride [Moles/Vol] 104 mmol/L Normal 98-107 [facility] Comment on above: Order Comment: Speci men Type: BLOOD SPECIMENOrdering Facility: [facility] Address: [address] [place] [address] Performed By: #### 5 0190-8, 42246-7, 2275- ####[facility] LABCLIA [id number] [place] [address] [place] CO2 [Moles/Vol] 25 mmol/L Normal 22-30 [facility] Comment on above: Order Comment: Speci men Type: BLOOD SPECIMENOrdering Facility: [facility] Address: [address] [place] [address] Performed By: #### 5 0190-8, 08037-0, 2275-09 ####[facility] LABCLIA [id number] [place] [address] [place] Creatinine [Mass/Vol] 0.70 mg/dL Normal 0.58-0.96 [facility] Comment on above: Order Comment: Speci men Type: BLOOD SPECIMENOrdering Facility: [facility] Address: [address] [place] [address] Performed By: #### 5 0190-8, 67266-8, 2275-09 ####[facility] LABCLIA [id number] [place] [address] [place] Creatinine and Glomerular filtration rate.predicted panel (S/P/Bld) 108 mL/min/1.73m??? Normal >=60 [facility] Comment on above: Order Comment: Speci men Type: BLOOD SPECIMENOrdering Facility: [facility] Address: [address] [place] [address] Result Comment: Etta mated Glomerular Filtration Rate [...] actual GFR. Performed By: #### 5 0190-8, 88001-4, 2275-09 ####[facility] LABCLIA [id number] [place] [address] [place] Glucose [Mass/Vol] 88 mg/dL Normal 74-99 [facility] Comment on above: Order Comment: Speci men Type: BLOOD SPECIMENOrdering Facility: [facility] Address: [address] [place] [id number] Result Comment: The [place] Diabetes Association (ADA) provides guidance for cutoff [...] Standards of Medical Care in Diabetes 2016, [place] [employer] Association. Diabetes Care. 2016.39(Suppl 1). Performed By: #### 5 0190-8, 71808-4, 2275-09 ####[facility] LABCLIA [id number] [place] [address] [place] Potassium [Moles/Vol] 4.9 mmol/L Normal 3.7-5.1 [facility] Comment on above: Order Comment: Speci men Type: BLOOD SPECIMENOrdering Facility: [facility] Address: [address] [place] [address] Performed By: #### 5 0190-8, 21956-6, 2275-09 ####[facility] LABCLIA [id number] [place] [address] [place] Sodium [Moles/Vol] 140 mmol/L Normal 136-144 [facility] Comment on above: Order Comment: Speci men Type: BLOOD SPECIMENOrdering Facility: [facility] Address: [address] [place] [address] Performed By: #### 5 0190-8, 75829-6, 2275-09 ####[facility] LABCLIA [id number] [address] [address] [place] Urea nitrogen [Mass/Vol] 17 mg/dL Normal 7-21 [facility] Comment on above: Order Comment: Speci men Type: BLOOD SPECIMENOrdering Facility: [facility] Address: [address] [place] [address] Performed By: #### 5 0190-8, 17898-1, 2276-4 ####[facility] LABCLIA [id number] [place] [address] [place] CBC W Auto Differential pane l (Bld)on 06-05-2024 Basophils (Bld) [#/Vol] 0.10 10*3/uL Normal <0.11 [facility] Comment on above: Order Comment: Speci men Type: BLOOD SPECIMEN [facility] Address: [address] [place] [address] Performed By: #### 5 7021-8 #### [facility] LAB CLIA [id number] [address] [place] [address] [place] Basophils/100 WBC (Bld) 1.2 % Normal [facility] Comment on above: Order Comment: Speci men Type: BLOOD SPECIMEN [facility] Address: [address] [place] [address] Performed By: #### 5 7021-8 #### [facility] CLIA [id number] [address] [place] [address] [place] Differential cell count method Nom (Bld) Auto Normal [facility] Comment on above: Order Comment: Speci men Type: BLOOD SPECIMEN [facility] Address: [address] [place] [address] Performed By: #### 5 7021-8 #### [facility] CLIA [id number] [address] [place] [address] [place] Eosinophils (Bld) [#/Vol] 0.52 10*3/uL High <0.46 [facility] Comment on above: Order Comment: Speci men Type: BLOOD SPECIMEN [facility] Address: [address] [place] [address] Performed By: #### 5 7021-8 #### [facility] CLIA [id number] [address] [place] [address] [place] Eosinophils/100 WBC (Bld) 6.0 % Normal [facility] Comment on above: Order Comment: Speci men Type: BLOOD SPECIMEN [facility] Address: [address] [place] [address] Performed By: #### 5 7021-8 #### [facility] CLIA [id number] [address] [place] [address] [place] Erythrocyte distribution width (RBC) [Ratio] 12.5 % Normal 11.5-15.0 [facility] Comment on above: Order Comment: Speci men Type: BLOOD SPECIMEN [facility] Address: [address] [place] [address] Performed By: #### 5 7021-8 #### [facility] CLIA [id number] [address] [place] [address] [place] Hematocrit (Bld) [Volume fraction] 44.2 % Normal 36.0-46.0 [facility] Comment on above: Order Comment: Speci men Type: BLOOD SPECIMEN Ordering Facility: [facility] Address: [address] [place] [address] Performed By: #### 5 7021-8 #### [facility] CLIA [id number] [address] [place] [address] [place] Hemoglobin (Bld) [Mass/Vol] 13.8 g/dL Normal 11.5-15.5 [facility] Comment on above: Order Comment: Speci men Type: BLOOD SPECIMEN Ordering Facility: [facility] Address: [address] [place] [address] Performed By: #### 5 7021-8 #### [facility] CLIA [id number] [address] [place] [address] [place] Immature granulocytes (Bld) [#/Vol] 10*3/uL Normal <0.10 [facility] Comment on above: Order Comment: Speci men Type: BLOOD SPECIMEN Ordering Facility: [facility] Address: [address] [place] [address] Performed By: #### 5 7021-8 #### [facility] CLIA [id number] [address] [place] [address] [place] Immature granulocytes/100 WBC (Bld) 0.2 % Normal [facility] Comment on above: Order Comment: Speci men Type: BLOOD SPECIMEN Ordering Facility: [facility] Address: [address] [place] [address] Performed By: #### 5 7021-8 #### [facility] CLIA [id number] [address] [place] [address] [place] Lymphocytes (Bld) [#/Vol] 2.89 10*3/uL Normal 1.00-4.00 [facility] Comment on above: Order Comment: Speci men Type: BLOOD SPECIMEN Ordering Facility: [facility] Address: [address] [place] [address] Performed By: #### 5 7021-8 #### [facility] CLIA [id number] [address] [place] [address] [place] Lymphocytes/100 WBC (Bld) 33.4 % Normal [facility] Comment on above: Order Comment: Speci men Type: BLOOD SPECIMEN Ordering Facility: [facility] Address: [address] [place] [address] Performed By: #### 5 7021-8 #### [facility] CLIA [id number] [address] [place] [address] [place] MCH (RBC) [Entitic mass] 28.6 pg Normal 26.0-34.0 [facility] Comment on above: Order Comment: Speci men Type: BLOOD SPECIMEN Ordering Facility: [facility] Address: [address] [place] [address] Performed By: #### 5 7021-8 #### [facility] CLIA [id number] [address] [place] [address] [place] MCHC (RBC) [Mass/Vol] 31.2 g/dL Normal 30.5-36.0 [facility] Comment on above: Order Comment: Speci men Type: BLOOD SPECIMEN Ordering Facility: [facility] Address: [address] [place] [address] Performed By: #### 5 7021-8 #### [facility] CLIA [id number] [address] [place] [address] [place] MCV (RBC) [Entitic vol] 91.5 fL Normal 80.0-100.0 [facility] Comment on above: Order Comment: Speci men Type: BLOOD SPECIMEN Ordering Facility: [facility] Address: [address] [place] [address] Performed By: #### 5 7021-8 #### [facility] CLIA [id number] [address] [place] [address] [place] Monocytes (Bld) [#/Vol] 0.66 10*3/uL Normal <0.87 [facility] Comment on above: Order Comment: Speci men Type: BLOOD SPECIMEN Ordering Facility: [facility] Address: [address] [place] [address] Performed By: #### 5 7021-8 #### [facility] CLIA [id number] [address] [place] [address] [place] Monocytes/100 WBC (Bld) 7.6 % Normal [facility] Comment on above: Order Comment: Speci men Type: BLOOD SPECIMEN Ordering Facility: [facility] Address: [address] [place] [address] Performed By: #### 5 7021-8 #### [facility] CLIA [id number] [address] [place] [address] [place] Neutrophils (Bld) [#/Vol] 4.45 10*3/uL Normal 1.45-7.50 [facility] Comment on above: Order Comment: Speci men Type: BLOOD SPECIMEN Ordering Facility: [facility] Address: [address] [place] [address] Performed By: #### 5 7021-8 #### [facility] CLIA [id number] [address] [place] [address] [place] Neutrophils/100 WBC (Bld) 51.6 % Normal [facility] Comment on above: Order Comment: Speci men Type: BLOOD SPECIMEN Ordering Facility: [facility] Address: [address] [place] [address] Performed By: #### 5 7021-8 #### [facility] CLIA [id number] [address] [place] [address] [place] Nucleated RBC (Bld) [#/Vol] 10*3/uL Normal <0.01 [facility] Comment on above: Order Comment: Speci men Type: BLOOD SPECIMEN Ordering Facility: [facility] Address: [address] [place] [address] Performed By: #### 5 7021-8 #### [facility] CLIA [id number] [address] [place] [address] [place] Nucleated RBC/100 WBC (Bld) [Ratio] 0.0 /100 WBC Normal [facility] Comment on above: Order Comment: Speci men Type: BLOOD SPECIMEN Ordering Facility: [facility] Address: [address] [place] [address] Performed By: #### 5 7021-8 #### [facility] CLIA [id number] [address] [place] [address] [place] Platelet mean volume (Bld) [Entitic vol] 11.5 fL Normal 9.0-12.7 [facility] Comment on above: Order Comment: Speci men Type: BLOOD SPECIMEN Ordering Facility: [facility] Address: [address] [place] [address] Performed By: #### 5 7021-8 #### [facility] CLIA [id number] [address] [place] [address] [place] Platelets (Bld) [#/Vol] 319 10*3/uL Normal 150-400 [facility] Comment on above: Order Comment: Speci men Type: BLOOD SPECIMEN Ordering Facility[facility] Address: [address] [place] [address] Performed By: #### 5 7021-8 #### [facility] CLIA [id number] [address] [place] [address] [place] RBC (Bld) [#/Vol] 4.83 10*6/uL Normal 3.90-5.20 [facility] Comment on above: Order Comment: Speci men Type: BLOOD SPECIMEN Ordering Facility[facility] Address: [address] [place] [address] Performed By: #### 5 7021-8 #### [facility] CLIA [id number] [address] [place] [address] [place] WBC (Bld) [#/Vol] 8.64 10*3/uL Normal 3.70-11.00 [facility] Comment on above: Order Comment: Speci men Type: BLOOD SPECIMEN Ordering Facility: [facility] Address: [address] [place] [address] Performed By: #### 5 7021-8 #### [facility] CLIA [id number] [address] [place] [address] [place] [facility] CBC W AUTO DIFF BLDon Basophils/100 WBC (Bld) 1.2 % [facility] BASOPHILS # BLD AUTO 0.1 [facility] DIFFERENTIAL METHOD BLD Auto [facility] EOSINOPHIL # BLD AUTO 0.52 High [facility] LYMPHOCYTES # BLD AUTO 2.89 [facility] MONOCYTES # BLD AUTO 0.66 [facility] NEUTROPHILS # BLD AUTO 4.45 [facility] NRBC # BLD AUTO <0.01 [facility] NRBC/100 WBC BLD-RTO 0 /[address] [facility] PLATELET # BLD AUTO 319 [facility] PMV BLD AUTO 11.5 fL 9.0 - 12.[address] [facility] WBC # BLD AUTO 8.64 [facility] Eosinophils/100 WBC (Bld) 6 % [facility] Erythrocyte distribution width (RBC) [Ratio] 12.5 % 11.5 - 15.0 % [facility] Hematocrit (Bld) [Volume fraction] 44.2 % 36.0 - 46.0 % [facility] Hemoglobin (Bld) [Mass/Vol] 13.8 g/dL 11.5 - 15.5 g/dL [facility] IMM GRANULOCYTES # BLD AUTO <0.03 [facility] IMM GRANULOCYTES/LEUK NFR BLD AUTO 0.2 % [facility] Interpretation and review of laboratory results Abnormal [facility] Lymphocytes/100 WBC (Bld) 33.4 % [facility] MCH (RBC) [Entitic mass] 28.6 pg 26.0 - 34.[address] [facility] MCHC (RBC) [Mass/Vol] 31.2 g/dL 30.5 - 36.0 g/dL [facility] MCV (RBC) [Entitic vol] 91.5 fL 80.0 - 100.[address] [facility] Monocytes/100 WBC (Bld) 7.6 % [facility] Neutrophils/100 WBC (Bld) 51.6 % [facility] RBC (Bld) [#/Vol] 4.83 10*6/uL 3.90 - 5.2 0 m/uL [facility] Specimen Type: BLOOD SPECIMEN Ordering [facility] Address: [address] [place] [address] Original Ordering Provider: [facility]24 ECG COMPLETE Ventricular Rate : 79 BPM Atrial Rate : 79 BPM P-R Interval : 124 ms QRS Duration : 102 ms Q-T Interval : 390 ms QTC Calculation(Bazett) : 447 ms Calculated P Roebling : 56 degrees Calculated R Roebling : 72 degrees Calculated T Roebling : 65 degrees NORMAL SINUS RHYTHM NORMAL ECG Confirmed by PETR LUCIANO MD ([id number]) on 2024 2:12:45 PM NAME : STACEY SAHU PID : [id number] : 1975 Gender : Female Race : ORD : [id number] Procedure Date : Jun 05 2024 10:36:34 Edit Date : 2024 14:15:04 Diagnosis: NORMAL SINUS RHYTHM NORMAL ECG Confirmed by PETR LUCIANO MD ([id number]) on 2024 2:12:45 PM Test Reason : PRE OP Location : 545 : [facility] Overread By : PETR LUCIANO MD Edited By : PETR LUCIANO MD Referred By : LOIS MCKEON Acquired by : Lay CHOW [facility] Ferritin SerPl-ncon 2023 Ferritin [Mass/Vol] 129.0 ng/mL Normal 14.7-205.1 [facility] Comment on above: Order Comment: Speci men Type: BLOOD SPECIMENOrdering Facility: [facility] Address: [address] [place] [address] Performed By: #### 5 0190-8, 98749-4, 2276-4 ####[facility] [id number] [place] [address] [place] HISTORY PHYSICALon HISTORY PHYSICAL HNO ID: [id number] Author: NEGRITA TEJEDA APRN.CNP Service: ? Author Type: Nurse Practitioner Type: H&P Filed: 06/06/2024 10:26 Note Text: [facility] HISTORY AND PHYSICAL EXAMINATION SERVICE DATE: 06/05/2024 SERVICE TIME: 9:56 AM PRIMARY CARE PHYSICIAN: Essie Ryan CNP, MOTOR EQUIPMENT SERGEANT REASON FOR VISIT: Stacey Sahu is a [...] STOP-Bang Score: 0 (Non-compliant with CPAP ) [id number] Score: Age: <65 Sex: female [id number] Score: ARISCAT Score: Age: <=50 Preoperative SpO2: [...] x 4 Crohn's disease without complication (HCC) [id number] Pulmonary Htn (Hcc) Obese Nirmala (Obstructive Sleep [...] (obstructive slee (more content not included)... Normal [facility] Iron and Iron binding capaci ty panelon 06-05-2024 Iron [Mass/Vol] 91 ug/dL Normal 41-186 [facility] Comment on above: Order Comment: Speci men Type: BLOOD SPECIMENOrdering Facility: [facility] Address: [address] [place] [address] Performed By: #### 5 0190-8, 74598-8, 2275-4 ####[facility] [id number] [place] [address] [place] Iron binding capacity [Mass/Vol] Normal [facility] Comment on above: Order Comment: Speci men Type: BLOOD SPECIMENOrdering Facility: [facility] Address: [address] [place] [address] Result Comment: Unab le to calculate due to hemolysis. Performed By: #### 5 0190-8, 03171-3, 2275- ####[facility] [id number] [place] [address] [place] Iron/TIBC [Molar ratio] Normal [facility] Comment on above: Order Comment: Speci men Type: BLOOD SPECIMENOrdering Facility: [facility] Address: [address] [place] [address] Result Comment: Unab le to calculate due to hemolysis. Performed By: #### 5 0190-8, 25430-7, 2275-09 ####[facility] [id number] [address] [place]alem 05-09-2024 NIURKAN Telephone (ABHINAV) ---- STACEY SAHU ([id number]) 1975 F Date Time Provider Department 05/09/24 LOIS MCKEON During your visit today, we recorded the following information about you: Lee Ann Valladares 05/09/2024 12:59 PM Signed PSS calling from Dr Rossi's office to ask how soon the PT could be scheduled for surgery for inspire implant, nerve stimulator. General for 3 hours. Please advise [phone] ask to speak with Alejandra or [place]. Allergies As of Date: 05/09/2024 Noted Allergy Reaction PENICILLINS 07/27/2016 16 - Unknown Date Reviewed: 04/16/2024 Reviewed by: Clarissa Nelson MA - Fully Assessed Reason for Visit: Question [8497] Cmt: See note Prescriptions as of 06/01/2024 [...] Status:Closed by LEE ANN VALLADARES on 06/01/24 [facility] CNOVon 04-16-2024 CNOV Office Visit (ORTHST) ---- STACEY SAHU ([id number]) 1975 F Date Time Provider Department 04/16/24 [...] Order(s):CONSULT TO PHYSICAL THERAPY [9032] Order #: [id number]: 1 FUTURE BATH/SHOWER CHAIR [[id number]] Order #: [id number] TOILET RAIL, EACH [[id number]] Order #: [id number] RAISED TOILET SEAT [[id number]] Order #: [id number] WALKER FOLDING WHEELED W/O S [[id number]] Order #: [id number] Prescriptions as of 04/16/2024 - atorvastatin (LIPITOR) [...] Encounter Status:Closed by LOIS MCKEON on 04/16/24 [facility] CNOVon 03-19-2024 CNOV Office Visit (OTMBHT) ---- STACEY SAHU ([id number]) 1975 F Date Time Provider Department 03/19/24 9:30 AM [facility] During your visit today, we recorded the following information about you: Clarissa Zacarias, PATIENCE 03/19/2024 10:[address] Mckeon has ordered a cream that will be delivered to your home. The company, [employer], will call or text you from a [phone] phone number. Please reply or answer the [...] her quality of life. 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 Pain is [...] - Fully Assessed Reason for Visit: New [[id number]] Cmt: Surgical consult Primary Visit Diagnosis:Pain of right hip [M25.551] Other Visit Diagnosis:Primary osteoarthritis of right hip [M16.11] Order(s):MRI HIP WO IVCON RIGHT [1311026] Order #: [id number] FUTURE Prescriptions as of 03/19/2024 - atorvastatin [...] be delivered to your home. The company, [employer], will call or text you from a [phone] phone number. Please reply or answer the call to start the process. If you do not hear from them within 48 hours, please call . Letter Text Encounter Status:Closed by LOIS MCKEON on 03/19/24 Normal [facility] XR HIP 3V PELV+ AP/LAT RTon [...] Mild right hip osteoarthritis, similar to 11/17/2021. Biometry Teacher: AGAPITO Transcribe Date/Time: Mar 19 2024 9:10A Dictated by : MELISSA MODI MD This examination was interpreted and the report reviewed and electronically signed by: MELISSA MODI MD on Mar 19 2024 9:11AM EST [id number] Normal [facility] XR Pelvis and Hip - right AP and Lateral frogon 03-19-2024 IMPRESSION: Mild right hip osteoarthritis, similar to 11/17/2021. Biometry Teacher: AGAPITO Transcribe Date/Time: Mar 19 2024 9:10A [...] right lower quadrant. DIVISION OF RADIOLOGY Provider, [facility] [place] - 03/19/2024 * * *Final Report* * [...] Mild right hip osteoarthritis, similar to 11/17/2021. Biometry Teacher: PSCB Transcribe Date/Time: Mar 19 2024 9:10A Dictated by : MELISSA MODI MD This examination was interpreted and the report reviewed and electronically signed by: MELISSA MODI MD on Mar 19 2024 9:11AM EST [facility] Radiology Study observation (narrative) [facility] XR Pelvis and Hip - right AP and Lateral frogOrdered By: [facility] Provider on 03-19-2024 [facility] CNPNon 03-18-2024 CNPN Telephone (OTMBHT) ---- STACEY SAHU ([id number]) 1975 F Date Time Provider Department 03/18/24 LOIS MCKEON [facility] During your visit today, we recorded the following information about you: Lupe Betancourt 03/18/2024 4:00 PM Signed Name of Caller: stacey Relationship to patient: patient Last visit in this department: Visit date not found Reason for Call: Other : has questions about what to expect at her appt on 03/19 Callback number: [phone] Clarissa Zacarias RN 03/18/2024 4:57 PM Signed [...] Status:Closed by LUPE BETANCOURT on 03/22/24 Normal [facility] 29on 03-06-2024 29 Addended by: KAMINI LOVE on: 03/08/2024 11:39 AM Modules accepted: Orders Normal [facility] ALL LIPID PROFILE (FASTING)o n 03-06-2024 CHOL HDL RATIO 3.9 [facility] Comment on above: 3.3 - 4.4 LOW RISK 4.4 - 7.1 AVERAGE RISK 7.1 - 11.0 MODERATE RISK >11.0 HIGH RISK Cholesterol [Mass/Vol] 227 mg/dL High NINF - 200 mg/dL [facility] Cholesterol in HDL [Mass/Vol] 58 mg/dL 40 - 60 mg/dL [facility] Comment on above: > or =60 mg/dl - LOW CARDIOVASCULAR RISK <40 mg/dl - HIGH CARDIOVASCULAR RISK Magnesium [Mass/Vol] 150.0 mg/dL [facility] Comment on above: <100 mg/dl OPTIMAL 100-129 mg/dl NEAR OR ABOVE OPTIMAL 130-159 mg/dl BORDERLINE HIGH 160-189 mg/dl HIGH >190 mg/dl VERY HIGH Magnesium [Mass/Vol] 19.6 mg/dL [facility] Triglyceride [Mass/Vol] 98 mg/dL NINF - 150 mg/dL [facility] Albumin [Mass/Vol] 3.2 g/dL Low 3.4 - 5.0 g/dL [facility] ALBUMIN GLOBULIN RATIO 1.0 [facility] ALP [Catalytic activity/Vol] 59 U/L 46 - 116 U/L [facility] ALT [Catalytic activity/Vol] 23 U/L 14 - 59 U/L [facility] AST [Catalytic activity/Vol] 14 U/L Low 15 - 37 U/L [facility] Bilirubin [Mass/Vol] 0.3 mg/dL 0.2 - 1 .0 mg/dL [facility] Bilirubin.indirect [Mass/Vol] 0.1 mg/dL 0.0 - 0.2 mg/dL [facility] Globulin (S) [Mass/Vol] 3.2 g/dL [facility] Protein [Mass/Vol] 6.4 g/dL 6.4 - 8.2 g/dL [facility] No Panel Informationon 03-06 Interpretation and review of laboratory results Abnormal [facility] Follow-up visit [id number] Stacey Sahu 1975 Date Provider Department Center 03/06/2024 [facility] Family History Problem Relation Age of Onset Coronary artery disease Father Family Status - Relation Status Age at Father Level of Service:18574 [place] OFFICE/OUTPATIENT NEW MODERATE MDM 45 MINUTES Reason for Visit and Comments: New Patient [632] - Pt was referred for an Inspire sleep apnea evaluation. Pt follows with pulmonary, Dr. Rosa in [place]. [facility] Follow-up visit [id number] Stacey Sahu 1975 F Date Provider Department Center 03/06/2024 TINO PRATER RAV[facility] Family History Problem Relation Age of Onset Coronary artery disease Father Family Status - Relation Status Age at Father Level of Service:53748 [place] OFFICE/OUTPATIENT ESTABLISHED LOW MDM 20 MIN Normal [facility] Patient Educationon 11-28-19 24 Patient Education Nephrology Dietary Guidelines to Help [...] Spinach (cooked), rhubarb, beets, sweet potatoes, and Italian chard. ? Peanuts. ? Potato chips, belgian fries, and baked potatoes with skin on. ? Nuts and nut products. ? Chocolate. ? If you regularly take a diuretic medicine, make sure to eat at least 1 or 2 servings of fruits or vegetables that are high in potassium each day. These include: ? Avocado. ? Banana. ? [place], prune, carrot, or tomato juice. ? Baked [...] fish oil, or vitamin B6. ? Take kger-mcu-mihtxzt and prescription medicines only as told by your health care provider. These include supplements. What foods sh (more content not included)... [facility] Screenson 11-28-2023 Screens [phone] [id number] F#[id number] [facility] Urology Office/Clinic Noteon 11-28-2023 Urology [...] for infection. Follow-up With When Contact Information LESLIE JUNG PA-C, URL [address] [place] [address] Additional Instructions: 1 yr KUB, BEN Patient Education Dietary Guidelines to Help Prevent Kidney Stones Documentation recorded by the scribe Zenobia Denis accurately reflects the services(s) I performed [...] Protein Urine Dipstick: Negative (11/28/23 09:04:00) Specific Williams Urine Dipstick: 1.020 (11/28/23 09:04:00) Urine Appearance Urine Dipstick: Clear (11/28/23 09:04:00) Urine Color Urine Dipstick: Yellow (11/28/23 09:04:00) Urobilinogen Urine Dipstick: Normal 0.2-1 EU/dl (11/28/23 09:04:00) pH Urine Dipstick: 7 (11/28/23 09:04:00) [1] URO- 6 month f/u; Jose GARCIA MD 05/29/2023 15:18 EST [facility] Comment on above: Result Comment: Elec tronically Signed By: LESLIE JUNG PA-C\.br\Date and Time Signed: 11/28/23 10:11 EDT\.br\Electronically Co-Signed By: Zenobia Denis\.br\Date and Time Co-Signed: 11/28/23 09:37 EDT COVID/FLU/RSV RT-PCRon 07-11 SARS-CoV-2 (COVID-19) RNA IZAIAH+probe Ql (Unsp spec) Positive [facility] Other COVID/FLU/RSV RT-PCR Negative [facility] Other CHEMISTRYOrdered By: SYSTEM SYSTEM on 02-01-2023 Albumin [...] mg/mg Normal 10 - 20 [facility] Remisol HEMATOLOGYOrdered By: SYSTEM SYSTEM on 02-01-2023 Basophils/100 [...] Normal 4.0 - 11.0 E9/L [facility] HemeAutoSS ECHOCARDIO M/2D COMPLETEon 0 11-22-2022 ECHOCARDIO M/2D COMPLETE Patient: STACEY SAHU Exam Date: 11/22/2022 : 1975 Gender:F Ordering : [facility] Admission #: [id number] Family : Order #: [id number] CLICK HERE TO VIEW EXAM ECHOCARDIOGRAM REPORT [...] Moran M.D. on 11/22/2022 at 17:44 Normal [facility] THYROID FN ASP BXon 10-28 THYROID FN ASP BX Begin Addendum #1 COLLECTED DATE/TIME: 10/18/2022 13:19 EDT Final Diagnosis Report for [facility] [place], [place] (A/B) SOFT TISSUE MASS CEPHALAD TO THYROID; FINE NEEDLE ASPIRATION: -ATYPIA OF UNDETERMINED SIGNIFICANCE. -CYST CONTENT. NOTE: Sparsely cellular aspirate compromised of follicular cells with architectural atypia. Molecular testing or a repeat aspirate may be helpful if clinically indicated. The final diagnosis is based on a microscopic exam of sales and marketing representative sections. 10/25/[address] Caceres. [...] 2. Pathology results are pending. Normal [facility] XR KUB 1 VIEWon 10-27-2022 XR [...] Performed By: #### C SHIVANI DENSON, CMP ####[facility] [address] [place], [place] [address]Cm. Nita Iverson CK.MB [Mass/Vol] 1.51 ng/mL Normal <=3.60 [facility] Comment on above: Performed By: #### C SHIVANI DENSON, CMP ####[facility] [address] [place], [place] [address]Jz. Nita Iverson HSTROP 4.1 pg/mL Normal 4.0-51.3 [facility] Comment on above: Result Comment: CUT- OFF POINTS HAVE BEEN ESTABLISHED BASED ON THE FOURTH UNIVERSAL DEFINITIONS OF MYOCARDIAL INFARCTION. THE UPPER REFERENCE LIMIT (URL) OF TROPONIN, DEFINED THE 99TH PERCENTILE OF cTnI DISTRIBUTION IN A REFERENCE POPULATION, HAS BEEN CONFIRMED THE DECISION THRESHOLD FOR MD DIAGNOSIS. Performed By: #### C SHIVANI DENSON, CMP ####[facility] [address] [place], [place] [address]AqMaribel Iverson ARIES 47 ng/mL Normal 9-82 [facility] Comment on above: Performed By: #### C SHIVANI DENSON, CMP ####[facility] [address] [place], [place] [address]LnDr. Nita Iverson CBC AUTO DIFFon 09-21-2022 BASO # 0.1 103/ul Normal 0.0-0.1 [facility] Comment on above: Performed By: #### C BC #### [facility] [address] [place] [address] [address] Nita Iverson Basophils/100 WBC (Bld) 0.8 % Normal 0.2-2.0 [facility] [facility] Comment on above: Performed By: #### C BC #### [facility] [address] [address] [address] Nita Iverson EO # 0.7 103/ul Normal 0.0-0.7 [facility] Comment on above: Performed By: #### C BC #### [facility] [address] [address] [address] Nita Iverson Eosinophils/100 WBC (Bld) 7.1 % Critically high 0.9-7.0 [facility] Comment on above: Performed By: #### C BC #### [facility] [address] [address] [address] Nita Iverson Erythrocyte distribution width (RBC) [Ratio] 12.3 % Normal 11.0-15.0 [facility] Comment on above: Performed By: #### C BC #### [facility] [address] [address] [address] Nita Iverson Hematocrit (Bld) [Volume fraction] 40.1 % Normal 36.0-48.0 [facility] Comment on above: Performed By: #### C BC #### [facility] [address] [address] [address] Nita Iverson Hemoglobin (Bld) [Mass/Vol] 13.6 g/dL Normal 12.0-16.0 [facility] Comment on above: Performed By: #### C BC #### [facility] [address] [place] [address] Dr. Nita Iverson IG # 0.02 10e3/ul Normal 0.00-0.03 [facility] Comment on above: Performed By: #### C BC #### [facility] [address] [place] [address] Dr. Nita Iverson IG % 0.2 % Normal 0.0-0.5 [facility] Comment on above: Performed By: #### C BC #### [facility] [address] [place] [address] Dr. Nita Iverson LYMPH # 3.0 103/ul Normal 1.2-3.8 [facility] Comment on above: Performed By: #### C BC #### [facility] [address] [place] [address] Dr. Nita Iverson Lymphocytes/100 WBC (Bld) 30.2 % Normal 20.5-60.0 [facility] Comment on above: Performed By: #### C BC #### [facility] [address] [place] [address] Dr. Nita Iverson MANUAL DIFF REQ NO Normal [facility] Comment on above: Performed By: #### C BC #### [facility] [address] [place] [address] Dr. Nita Iverson MCH (RBC) [Entitic mass] 30.0 pg Normal 26.7-34.0 [facility] Comment on above: Performed By: #### C BC #### [facility] [address] [place] [address] Dr. Nita Iverson MCHC (RBC) [Mass/Vol] 33.9 g/dL Normal 29.9-35.2 [facility] Comment on above: Performed By: #### C BC #### [facility] [address] [place] [address] Dr. Nita Iverson MCV (RBC) [Entitic vol] 88.3 fL Normal 81.0-99.0 [facility] Comment on above: Performed By: #### C BC #### [facility] [address] [place] [address] Dr. Nita Iverson MONO # 0.8 103/ul Normal 0.3-0.8 [facility] Comment on above: Performed By: #### C BC #### [facility] [address] [place] [address] Dr. Nita Iverson Monocytes/100 WBC (Bld) 7.8 % Normal 1.7-12.0 [facility] Comment on above: Performed By: #### C BC #### [facility] [address] [place] [address] Dr. Nita Iverson NEUT # 5.4 103/ul Normal 1.4-6.5 [facility] Comment on above: Performed By: #### C BC #### [facility] [address] [place] [address] Dr. Nita Iverson Neutrophils/100 WBC (Bld) 53.9 % Normal 43.0-75.0 [facility] Comment on above: Performed By: #### C BC #### [facility] [address] [place] [address] Dr. Nita Iverson Platelet mean volume (Bld) [Entitic vol] 10.4 fL Normal 9.5-13.5 [facility] Comment on above: Performed By: #### C BC #### [facility] [address] [place] [address] Dr. Nita Iverson PLT 270 103/ul Normal 150-450 [facility] Comment on above: Performed By: #### C BC #### [facility] [address] [place] [address] Dr. Nita Iverson RBC 4.54 106/ul Normal 4.20-5.40 [facility] Comment on above: Performed By: #### C BC #### [facility] [address] [place] [address] Dr. Nita Iverson WBC 10.0 103/ul Normal 4.0-11.0 [facility] Comment on above: Performed By: #### C BC #### [facility] [address] [place] [address] ABD/PELV W CONon [...] Bilirubin Ql (U) Negative Normal NEGATIVE [facility] Comment on above: Performed By: #### U MICRO, ERUR, PREGU ####[facility] [address] [address]Dr. Yilan Iverson Clarity (U) CLEAR Normal CLEAR [facility] Comment on above: Performed By: #### U MICRO, ERUR, PREGU ####[facility] [address] [address]Dr. Nita Iverson Color (U) LT. YELLOW Normal YELLOW [facility] Comment on above: Performed By: #### U MICRO, ERUR, PREGU ####[facility] [address] [address]Dr. Nita MARIEAHD A micrscopic examination will be performed if indicated. Normal [facility] Comment on above: Performed By: #### U MICRO, ERUR, PREGU ####[facility] [address] [address]Dr. Nita Iverson Glucose Ql (U) Negative Normal NEGATIVE [facility] Comment on above: Performed By: #### U MICRO, ERUR, PREGU ####[facility] [address] [address]Dr. Nita Iverson Hemoglobin Ql (U) LARGE Abnormal NEGATIVE [facility] Comment on above: Performed By: #### U MICRO, ERUR, PREGU ####[facility] [address] [address]Dr. Nita Iverson Ketones Ql (U) Negative Normal NEGATIVE [facility] Comment on above: Performed By: #### U MICRO, ERUR, PREGU ####[facility] [address] [address]Dr. Nita Iverson LEUKOCYTES Negative Normal NEGATIVE [facility] Comment on above: Performed By: #### U MICRO, ERUR, PREGU ####[facility] [address] [address]Dr. Nita Iverson Nitrite Ql (U) Negative Normal NEGATIVE [facility] Comment on above: Performed By: #### U MICRO, ERUR, PREGU ####[facility] [address] [address]Dr. Nita Iverson pH (U) 6.5 [pH] Normal 5-9 [facility] Comment on above: Performed By: #### U MICRO, ERUR, PREGU ####[facility] [address] [address]Dr. Nita Iverson SPEC GRAVITY 1.020 Normal 1.005-<=1.02 5 [facility] Comment on above: Performed By: #### U MICRO, ERUR, PREGU ####[facility] [address] [address]Dr. Nita Iverson UA PROTEIN Negative Normal NEGATIVE/ TRACE [facility] Comment on above: Performed By: #### U MICRO, ERUR, PREGU ####[facility] [address] [address]Dr. Janniejennifer Iverson UR MICRO IND INDICATED Normal [facility] Comment on above: Performed By: #### U MICRO, ERUR, PREGU ####[facility] [address] [address]Dr. Janniejennifer Iverson Urobilinogen Qn (U) 1.0 {Senait'U}/dL Normal 0.2 - 1. 0 [facility] Comment on above: Performed By: #### U MICRO, ERUR, PREGU ####[facility] [address] [address]Dr. Nita Kishor LIPASEon 09-21-2022 Lipase [Catalytic activity/Vol] 89.0 U/L Normal 73.0-393.0 [facility] Comment on above: Performed By: #### C MADM, LIPA, CMP ####[facility] [address] [address]Dr. Nita Iverson URon 09-21-2022 , QUAL Negative Normal NEGATIVE [facility] Comment on above: Performed By: #### U MICRO, ERUR, PREGU ####[facility] [address] [address]Dr. Nita Iverson PROF 14(COMP METB)on 023 Albumin [Mass/Vol] 3.5 g/dL Normal 3.4-5.0 [facility] Comment on above: Performed By: #### C MADM, LIPA, CMP #### [facility] [address] [address] [address] Nita Iverson Albumin/Globulin [Mass ratio] 1.0 {ratio} Normal [facility] Comment on above: Performed By: #### C MADMarita LIPA, CMP #### [facility] [address] [place] [address] Dr. Nita Iverson ALP [Catalytic activity/Vol] 67 U/L Normal 46-116 [facility] Comment on above: Performed By: #### C MADM, LIPA, CMP #### [facility] [address] [place] [address] Dr. Nita Iverson ALT [Catalytic activity/Vol] 30 U/L Normal 14-59 [facility] Comment on above: Performed By: #### C MADM, LIPA, CMP #### [facility] [address] [place] [address] Dr. Nita Iverson Anion gap [Moles/Vol] 11.8 mmol/L Normal [facility] Comment on above: Performed By: #### C MADM, LIPA, CMP #### [facility] [address] [place] [address] Dr. Nita Iverson AST [Catalytic activity/Vol] 25 U/L Normal 15-37 [facility] Comment on above: Performed By: #### C MADM, LIPA, CMP #### [facility] [address] [place] [address] Dr. Nita Iverson Bilirubin [Mass/Vol] 0.3 mg/dL Normal 0.2-1.0 [facility] Comment on above: Performed By: #### C MADM, LIPA, CMP #### [facility] [address] [place] [address] Dr. Nita Iverson Calcium [Mass/Vol] 9.2 mg/dL Normal 8.5-10.1 [facility] Comment on above: Performed By: #### C MADM, LIPA, CMP #### [facility] [address] [place] [address] Dr. Nita Iverson Chloride [Moles/Vol] 106 mmol/L Normal 98-107 [facility] Comment on above: Performed By: #### C MADM, LIPA, CMP #### [facility] [address] [address] [address] Nita Iverson CO2 [Moles/Vol] 28.7 mmol/L Normal 21.0-32.0 [facility] Comment on above: Performed By: #### C MADM, LIPA, CMP #### [facility] [address] [place] [address] Dr. Nita Iverson Creatinine [Mass/Vol] 0.81 mg/dL Normal 0.55-1.02 [facility] Comment on above: Performed By: #### C MADM, LIPA, CMP #### [facility] [address] [place] [address] Dr. Nita Iverson EGFR-AF AZERBAIJANI >60 Normal >=60 [facility] Comment on above: Performed By: #### C MADM, LIPA, CMP #### [facility] [address] [place] [address] Dr. Nita Iverson EGFR-NON AF AZERBAIJANI >60 Normal >=60 [facility] Comment on above: Performed By: #### C MADM, LIPA, CMP #### [facility] [address] [place] [address] Dr. Nita Iverson Globulin (S) [Mass/Vol] 3.5 g/dL Normal [facility] Comment on above: Performed By: #### C MADM, LIPA, CMP #### [facility] [address] [address] [address] Nita Iverson Glucose [Mass/Vol] 106 mg/dL Normal 74-106 [facility] Comment on above: Performed By: #### C MADM, LIPA, CMP #### [facility] [address] [address] [address] Nita Iverson Potassium [Moles/Vol] 4.5 mmol/L Normal 3.5-5.1 [facility] Comment on above: Performed By: #### C MADM, LIPA, CMP #### [facility] [address] [place] [address] Dr. Nita Iverson Protein [Mass/Vol] 7.0 g/dL Normal 6.4-8.2 [facility] Comment on above: Performed By: #### C SHIVANI DENSON, CMP #### [facility] [address] [address] [address] Nita Iverson Sodium [Moles/Vol] 142 mmol/L Normal 136-145 [facility] Comment on above: Performed By: #### C SHIVANI DENSON, CMP #### [facility] [address] [address] [address] Nita Iverson Urea nitrogen [Mass/Vol] 12.0 mg/dL Normal 7.0-18.0 [facility] Comment on above: Performed By: #### C SHIVANI DENSON, CMP #### [facility] [address] [address] [address] Nita Iversno Urea nitrogen/Creatinine [Mass ratio] 14.8 mg/mg Normal [facility] Comment on above: Performed By: #### SHIVANI HARPER, CMP #### [facility] [address] [address] [address] Nita Iverson URINE MICROSCOPIC ONLYon BACTERIA NONE SEEN Normal NONE SEEN [facility] Comment on above: Performed By: #### U MICRO, ERUR, PREGU ####[facility] [address] [address]Dr. Nita Iverson Bacteria identified Cx Nom (U) NOT INDICATED Normal [facility] Comment on above: Performed By: #### U MICRO, ERUR, PREGU ####[facility] [address] [address]DrMaribel Iverson CAST NONE SEEN Normal NONE SEEN [facility] Comment on above: Performed By: #### U MICRO, ERUR, PREGU ####[facility] [address] [address]DrMaribel Iverson Crystals LM Nom (Urine sed) NONE SEEN Normal NONE SEEN [facility] Comment on above: Performed By: #### U MICRO, ERUR, PREGU ####[facility] [address] [address]Dr. Nita Iverson Epithelial cells LM Ql (Urine sed) RARE Normal NONE SEEN /RARE [facility] Comment on above: Performed By: #### U MICRO, ERUR, PREGU ####[facility] [address] [place], [place] [address]Fm. Nita Iverson MUCOUS NONE SEEN Normal NONE SEEN [facility] Comment on above: Performed By: #### U MICRO, ERUR, PREGU ####[facility] [address] [place], [place] [address]Pg. Nita Iverson RBC 20-50 Abnormal 0-2 [facility] Comment on above: Performed By: #### U MICRO, ERUR, PREGU ####[facility] [address] [place], [place] [address]Dy. Nita Iverson WBC 2-5 Abnormal NONE SEEN [facility] Comment on above: Performed By: #### U MICRO, ERUR, PREGU ####[facility] [address] [place], [place] [address]Ds. Nita Iverson US THYROIDon 09-06-2022 US THYROID [...] X-rays 07/07/2022 TECHNIQUE: Axial and coronal large xgses-od-unqv sequencing through the pelvis and both hips. Small rzxmn-pz-rhmg coronal, sagittal and axial sequencing through the [...] at approximately the 11:00 position (coronal small zjvjw-on-rkwh 14). The remainder of the labrum exhibits no gross irregularity. The left acetabulum is normal. The bilateral femoral head and acetabular cartilage exhibits no chondral or osteochondral irregularity. The pubic symphysis and sacroiliac joints are normal. Thickening and interstitial edema of the right gluteus medius tendon insertion to the greater trochanter (coronal small plcgj-rc-mgiq 13 and axial large emsch-rn-uavp 23). Mild amount of adjacent edema. No abnormal bursal fluid collection. Questionable mild thickening and interstitial edema of the left gluteus minimus tendon (coronal large jiqiw-cj-lcbu 17 and axial large asptm-bg-loct 23 and to a lesser degree the gluteus medius tendon (coronal large dviel-kc-jchr 21). No tendon tear, tendon tear or [...] by: PAULETTE PHIPPS Date: 2022-08-18 22:39 Normal [facility] PAP ACOG PANEL 2: 30 to 65on 08-11-2022 . . Normal [facility] Comment on above: Result Comment: Perf ormed at: WB Performed By: #### [id number] ####[facility] [address] [address]DrMaribel Iverson Age Gdln ACOG Testing 30-65 Normal [facility] Comment on above: Performed By: #### 4 [id number] ####[facility] [address] [place], [place] [address]DrMaribel Iverson DIAGNOSIS: Comment Normal [facility] Comment on above: Result Comment: NEGA TIVE FOR INTRAEPITHELIAL LESION OR MALIGNANCY. Performed at: WB Performed By: #### 4 [id number] ####[facility] [address] [place], [place] [address]DrMaribel Iverson HPV Aptima Negative Normal Negative [facility] Comment on above: Result Comment: This nucleic acid amplification test detects fourteen high-risk HPV types (16,18,31,33,35,39,45,51,52,56,58,59,66,68) without differentiation. Performed at: =G Performed By: #### 4 [id number] ####[facility] [address] [place], [place] [address]DrMaribel Iverson HPV Genotype Reflex Comment Normal [facility] Comment on above: Result Comment: Crit eria not met, HPV Genotype not performed. Performed at: WB Performed By: #### 4 [id number] ####[facility] [address] [place], [place] [address]DrMaribel Iverson Methodology: Comment Normal [facility] Comment on above: Result Comment: This liquid based ThinPrep(R) pap test was screened with the use of an image guided system. Performed at: WB Performed By: #### [id number] ####[facility] [address] [place], [place] [address]DrMaribel Valderramajennifer Iverson Note: Comment Normal [facility] Comment on above: Result Comment: The Pap smear is a screening test designed to aid in the detection of premalignant and malignant conditions of the uterine cervix. It is not a diagnostic procedure and should not be used as the sole means of detecting cervical cancer. Both false-positive and false-negative reports do occur. . Performed at: WB Performed By: #### [id number] ####[facility] [address] [address]DrMaribel Iverson Performed by: Comment Normal [facility] Comment on above: Result Comment: Jordana Pruett, Nuclear Spectroscopist (ASCP) Performed at: WB Performed By: #### [id number] ####[facility] [address] [address]DrMaribel Iverson Specimen adequacy: Comment Normal [facility] Comment on above: Result Comment: Sati sfactory for evaluation. No endocervical component is identified. Performed at: WB Performed By: #### 4 [id number] ####[facility] [address] [address]Dr. Nita Iverson US PELVIS AND TRANSVAGon US [...] by: PAULETTE GALVAN Date: 2022-06-06 17:51 Normal [facility] CT ABD/PELV WO W CONon [...] by: PREET RODRIGEZ Date: 2022-04-25 08:09 Normal [facility] RENAL W_WO PHARMon 2021 MI RENAL W_WO PHARM EXAMINATION: MI RENAL W_WO PHARM HISTORY: Kidney stone COMPARISON: [...] by: PAULETTE GALVAN Date: 2022-03-22 17:23 Normal [facility] XR KUB 1 VIEWon 03-22-2022 [...] by: PAULETTE GALVAN Date: 2022-03-22 17:57 Normal [facility] US THYROIDon 03-09-2022 US THYROID EXAMINATION: [...] IMPRESSION: Multinodular goiter, grossly stable TI-RADS: The [employer] TI-RADS committee's white paper recommendations for thyroid lesions classified as TR4 (moderately suspicious) are listed below: > 1.0 cm. Follow-up ultrasound in 1, 2, 3, and 5 years. > 1.5 cm. FNA. J. Am Rosendo Radiol 2017;14:587-595. Electronically authenticated by: PAULETTE GALVAN Date: 2022-03-09 07:07 Normal [facility] CT ABD/PELV WO W CONon [...] PREET RODRIGEZ Date: 2022-03-07 16:45 Normal [facility] MAMM SCREEN 3D GRACIE CADon 02-09-2022 MG MAMM SCREEN 3D GRACIE CAD Patient: STACEY SAHU Exam Date: 02/09/2022 : 1975 Gender:F Ordering : [employer] ESSIE RYAN [facility] Admission #: [id number] Family : Order #: [id number] CLICK HERE TO VIEW EXAM RADIOLOGY REPORT [...] [facility] Covid-19 PCR (CVDTB)on SARS-CoV-2 (COVID-19) RNA [...] for this test is supported by the [place] of Health and Human Service's declaration that [...] longer be used). Performed By: #### [facility] #### [facility] [address] [address] [address] Nita Iverson MR femur RT wo/w conon 12-04 MR femur RT wo/w con [facility] [place] [address] [place] [address] MRI Report Signed Patient: Stacey Sahu MR#: [id number] : 1975 Acct:[id number] Age/Sex: 46 / F ADM Date: 12/03/21 Loc: MR Room: Type: [facility] Attending Dr: Alexis Saenz II, [...] Stock Jr., M.D.12/04/2021 3:45 PM Dictation Location: [place] [address] Transcribed By: [facility] 12/04/21 1545 Dictated By: Jorge Luis Stock Jr, MD 12/04/21 1519 Signed By: 12/04/21 1545 Normal [facility] XR femur RT 2V*on 11-17-2021 XR femur RT 2V* [facility] [place] [address] [place] [address] XRay Report Signed Patient: Stacey Sahu MR#: [id number] : 1975 Acct:[id number] Age/Sex: 46 / F ADM Date: 11/17/21 Loc: [facility] Room: Type: [facility] Attending Dr: Alexis Saenz II, MD Ordering Provider: Alexis Saenz MD Date of Service: 11/17/21 XR/XR hip RT min 2V(w/wo pelvis)*: Right hip pain ([id number]) XR/XR femur RT 2V*: Right hip pain [...] Vipin Iniguez M.D.11/17/2021 3:56 PM Dictation Location: [place] [address] Transcribed By: [facility] 11/17/21 155 Dictated By: Vipin Iniguez DO 11/17/21 1553 Signed By: 11/17/21 1556 [facility] Large Joint Arthro/Inj: R gr eater trochanteric bursa [facility] Vital Signs Date Time Vital Sign Value Performing Clinician Facility 09-30-2024 13:39-0400 Body mass index (BMI) [Ratio] 37.89 kg/m2 Essie Ryan POWER SCREWDRIVER OPERATOR Work Phone: [facility] 09-30-2024 13:39-0400 Body temperature 98.6 [degF] Essie Ryan POWER SCREWDRIVER OPERATOR Work Phone: [facility] 09-30-2024 13:39-0400 Body weight 88 kg Essie Ryan POWER SCREWDRIVER OPERATOR Work Phone: [facility] 09-30-2024 13:39-0400 Diastolic blood pressure 90 mm[Hg] Essie Ryan POWER SCREWDRIVER OPERATOR Work Phone: [facility] 09-30-2024 13:39-0400 Heart rate 99 /min Essie Shelby POWER SCREWDRIVER OPERATOR Work Phone: [facility] 09-30-2024 13:39-0400 Respiratory rate 18 /min Essielisa Ryan POWER SCREWDRIVER OPERATOR Work Phone: [facility] 09-30-2024 13:39-0400 SaO2% (BldA) [Mass fraction] 98 % Essie Ryan POWER SCREWDRIVER OPERATOR Work Phone: [facility] 09-30-2024 13:39-0400 Systolic blood pressure 118 mm[Hg] Essie Ryan POWER SCREWDRIVER OPERATOR Work Phone: [facility] 09-06-2024 08:22-0400 Body height 152.4 cm Jeff Rossi MD Work Phone: [facility] 09-06-2024 08:22-0400 Body mass index (BMI) [Ratio] 37.34 kg/m2 Jeff Rossi MD Work Phone: [facility] 09-06-2024 08:22-0400 Body temperature 97.2 [degF] Jeff Rossi MD Work Phone: [facility] 09-06-2024 08:22-0400 Body weight 86.73 kg Jeff Rossi MD Work Phone: [facility] 08-28-2024 13:28-0500 Body mass index (BMI) [Ratio] 37.46 kg/m2 Essie Shelby POWER SCREWDRIVER OPERATOR Work Phone: [facility] 08-28-2024 13:28-0500 Body temperature 98.49 [degF] Essie Abdoulz POWER SCREWDRIVER OPERATOR Work Phone: [facility] 08-28-2024 13:28-0500 Body weight 87 kg Essie Abdoulz POWER SCREWDRIVER OPERATOR Work Phone: [facility] 08-28-2024 13:28-0500 Diastolic blood pressure 86 mm[Hg] Essie Abdoulz POWER SCREWDRIVER OPERATOR Work Phone: [facility] 08-28-2024 13:28-0500 Heart rate 111 /min Essie Charlihholz POWER SCREWDRIVER OPERATOR Work Phone: [facility] 08-28-2024 13:28-0500 Respiratory rate 18 /min Essie Charlihholz POWER SCREWDRIVER OPERATOR Work Phone: [facility] 08-28-2024 13:28-0500 SaO2% (BldA) [Mass fraction] 98 % Essie Abdoulz POWER SCREWDRIVER OPERATOR Work Phone: [facility] 08-28-2024 13:28-0500 Systolic blood pressure 116 mm[Hg] Essie Charlihholz POWER SCREWDRIVER OPERATOR Work Phone: [facility] 07-23-2024 14:34-0500 Body height 152.[address] [facility] [address] [place] [address] 07-23-2024 14:34-0500 Body mass index (BMI) [Ratio] 38.06 kg/m2 [facility] [address] [place] [address] 07-23-2024 14:34-0500 Body temperature 97.81 [degF] [facility] 07-23-2024 14:34-0500 Body weight 88.4 kg [facility] 4 [facility] 07-23-2024 14:34-0500 Diastolic blood pressure 70 mm[Hg] [facility] 4 [facility] 07-23-2024 14:34-0500 Heart rate 93 /min [facility] 07-23-2024 14:34-0500 Respiratory rate 16 /min [facility] 07-23-2024 14:34-0500 SaO2% (BldA) [Mass fraction] 99 % [facility] 07-23-2024 14:34-0500 Systolic blood pressure 118 mm[Hg] [facility] 06-05-2024 10:47-0500 Diastolic blood pressure 85 mm[Hg] Pacc 3 Work Phone: [facility] 06-05-2024 10:47-0500 Systolic blood pressure 135 mm[Hg] Pacc 3 Work Phone: [facility] 06-05-2024 10:24-0500 Body height 152.4 cm Pacc 3 Work Phone: [facility] 06-05-2024 10:24-0500 Body mass index (BMI) [Ratio] 37.72 kg/m2 Pacc 3 Work Phone: [facility] 06-05-2024 10:24-0500 Body temperature 97.81 [degF] Pacc 3 Work Phone: [facility] 06-05-2024 10:24-0500 Body weight 87.6 kg Pacc 3 Work Phone: [facility] 06-05-2024 10:24-0500 Heart rate 86 /min Pacc 3 Work Phone: [facility] 06-05-2024 10:24-0500 Respiratory rate 16 /min Pacc 3 Work Phone: [facility] 06-05-2024 10:24-0500 SaO2% (BldA) [Mass fraction] 96 % Pacc 3 Work Phone: [facility] 05-29-2024 14:40-0500 Body height 152.4 cm Essie Ryan POWER SCREWDRIVER OPERATOR Work Phone: [facility] 05-29-2024 14:40-0500 Body mass index (BMI) [Ratio] 38.04 kg/m2 Essielisa Rolonsienaz POWER SCREWDRIVER OPERATOR Work Phone: [facility] 05-29-2024 14:40-0500 Body temperature 98.1 [degF] Essie Ольгаsienaz POWER SCREWDRIVER OPERATOR Work Phone: [facility] 05-29-2024 14:40-0500 Body weight 88.36 kg Essie Ольгаsienaz POWER SCREWDRIVER OPERATOR Work Phone: [facility] 05-29-2024 14:40-0500 Diastolic blood pressure 86 mm[Hg] Essie Ольгаholz POWER SCREWDRIVER OPERATOR Work Phone: [facility] 05-29-2024 14:40-0500 Heart rate 94 /min Essie Charlihholz POWER SCREWDRIVER OPERATOR Work Phone: [facility] 05-29-2024 14:40-0500 Respiratory rate 18 /min Essie Ольгаholz POWER SCREWDRIVER OPERATOR Work Phone: [facility] 05-29-2024 14:40-0500 SaO2% (BldA) [Mass fraction] 98 % Essie Charlijennifersienaz POWER SCREWDRIVER OPERATOR Work Phone: [facility] 05-29-2024 14:40-0500 Systolic blood pressure 110 mm[Hg] Essie Charlihholz POWER SCREWDRIVER OPERATOR Work Phone: [facility] 05-17-2024 08:00-0500 Body height 152.4 cm Jeff Rossi MD Work Phone: [facility] 05-17-2024 08:00-0500 Body mass index (BMI) [Ratio] 38.24 kg/m2 Jfef Rossi MD Work Phone: [facility] 05-17-2024 08:00-0500 Body temperature 97.9 [degF] Jeff Rossi MD Work Phone: [facility] 05-17-2024 08:00-0500 Body weight 88.81 kg Jeff Rossi MD Work Phone: [facility] 05-06-2024 14:08-0500 Body height 152.4 cm [facility] 2 [facility] 05-06-2024 14:08-0500 Body mass index (BMI) [Ratio] 38.28 kg/m2 [facility] 2 [facility] 05-06-2024 14:08-0500 Body weight 88.91 kg [facility] 2 [facility] 04-19-2024 08:28-0400 Body height 152.4 cm Jeff Rossi MD Work Phone: [facility] 04-19-2024 08:28-0400 Body mass index (BMI) [Ratio] 38.24 kg/m2 Jeff Rossi MD Work Phone: [facility] 04-19-2024 08:28-0400 Body temperature 98.1 [degF] Jeff Rossi MD Work Phone: [facility] 04-19-2024 08:28-0400 Body weight 88.81 kg Jeff Rossi MD Work Phone: [facility] 04-10-2024 08:36-0400 Body height 152.4 cm Essie Ryan POWER SCREWDRIVER OPERATOR Work Phone: [facility] 04-10-2024 08:36-0400 Body mass index (BMI) [Ratio] 38.16 kg/m2 Essie Ryan POWER SCREWDRIVER OPERATOR Work Phone: [facility] 04-10-2024 08:36-0400 Body temperature 98.8 [degF] Essie Ryan POWER SCREWDRIVER OPERATOR Work Phone: [facility] 04-10-2024 08:36-0400 Body weight 88.63 kg Essie Aichholz POWER SCREWDRIVER OPERATOR Work Phone: [facility] 04-10-2024 08:36-0400 Diastolic blood pressure 88 mm[Hg] Essie Charlihholz POWER SCREWDRIVER OPERATOR Work Phone: [facility] 04-10-2024 08:36-0400 Heart rate 96 /min Essie Charlihholz POWER SCREWDRIVER OPERATOR Work Phone: [facility] 04-10-2024 08:36-0400 Respiratory rate 18 /min Essie Charlihholz POWER SCREWDRIVER OPERATOR Work Phone: [facility] 04-10-2024 08:36-0400 SaO2% (BldA) [Mass fraction] 98 % Essie Charlihholz POWER SCREWDRIVER OPERATOR Work Phone: [facility] 04-10-2024 08:36-0400 Systolic blood pressure 120 mm[Hg] Essie Aichholz POWER SCREWDRIVER OPERATOR Work Phone: [facility] 02-29-2024 08:38-0400 Body height 152.4 cm Essie Charlihholz POWER SCREWDRIVER OPERATOR Work Phone: [facility] 02-29-2024 08:38-0400 Body mass index (BMI) [Ratio] 38.28 kg/m2 Essie Charlihholz POWER SCREWDRIVER OPERATOR Work Phone: [facility] 02-29-2024 08:38-0400 Body temperature 97.81 [degF] Essie Charlihholz POWER SCREWDRIVER OPERATOR Work Phone: [facility] 02-29-2024 08:38-0400 Body weight 88.91 kg Essie Charlihholz POWER SCREWDRIVER OPERATOR Work Phone: [facility] 02-29-2024 08:38-0400 Diastolic blood pressure 88 mm[Hg] Essie Aichholz POWER SCREWDRIVER OPERATOR Work Phone: [facility] 02-29-2024 08:38-0400 Heart rate 97 /min Essie Aichholz POWER SCREWDRIVER OPERATOR Work Phone: [facility] 02-29-2024 08:38-0400 Respiratory rate 18 /min Essie Charlihholz POWER SCREWDRIVER OPERATOR Work Phone: [facility] 02-29-2024 08:38-0400 SaO2% (BldA) [Mass fraction] 98 % Essie Ryan POWER SCREWDRIVER OPERATOR Work Phone: [facility] 02-29-2024 08:38-0400 Systolic blood pressure 122 mm[Hg] Essie Ryan POWER SCREWDRIVER OPERATOR Work Phone: [facility] 11-28-2023 09:08-0400 Blood Pressure Location LESLIE ANGELICA [facility] 11-28-2023 09:08-0400 Diastolic blood pressure 84 mm[Hg] LESLIE ANGELICA [facility] 11-28-2023 09:08-0400 Heart rate 82 /min LESLIE ANGELICA [facility] 11-28-2023 09:08-0400 Respiratory rate 16 /min LESLIE ANGELICA [facility] 11-28-2023 09:08-0400 Systolic blood pressure 139 mm[Hg] LESLIE ANGELICA [facility] 09-12-2023 07:42-0400 Diastolic blood pressure 103 mm[Hg] Imani Chan GRINDER SET UP OPERATOR SURFACE-MOTOR EQUIPMENT SERGEANT Work Phone: [facility] 09-12-2023 07:42-0400 Heart rate 95 /min Imani Pati GRINDER SET UP OPERATOR SURFACE-MOTOR EQUIPMENT SERGEANT Work Phone: [facility] 09-12-2023 07:42-0400 Respiratory rate 18 /min Imani Avisenberg GRINDER SET UP OPERATOR SURFACE-MOTOR EQUIPMENT SERGEANT Work Phone: [facility] 09-12-2023 07:42-0400 SaO2% (BldA) [Mass fraction] 99 % Imani Chan GRINDER SET UP OPERATOR SURFACE-MOTOR EQUIPMENT SERGEANT Work Phone: [facility] [employer] [facility] 09-12-2023 07:42-0400 Systolic blood pressure 136 mm[Hg] Imani Chan GRINDER SET UP OPERATOR SURFACE-MOTOR EQUIPMENT SERGEANT Work Phone: [facility] 08-21-2023 08:03-0500 Body height 149.9 cm Imani Chan GRINDER SET UP OPERATOR SURFACE-MOTOR EQUIPMENT SERGEANT Work Phone: [facility] 08-21-2023 08:03-0500 Body mass index (BMI) [Ratio] 38.78 kg/m2 Imani Chan GRINDER SET UP OPERATOR SURFACE-MOTOR EQUIPMENT SERGEANT Work Phone: [facility] [employer] [facility] 08-21-2023 08:03-0500 Body weight 87.09 kg Imani Chan GRINDER SET UP OPERATOR SURFACE-MOTOR EQUIPMENT SERGEANT Work Phone: [facility] [employer] [facility] 08-21-2023 08:03-0500 Diastolic blood pressure 106 mm[Hg] Imani Chan GRINDER SET UP OPERATOR SURFACE-MOTOR EQUIPMENT SERGEANT Work Phone: [facility] 08-21-2023 08:03-0500 Heart rate 94 /min Imani Chan GRINDER SET UP OPERATOR SURFACE-MOTOR EQUIPMENT SERGEANT Work Phone: [facility] 08-21-2023 08:03-0500 SaO2% (BldA) [Mass fraction] 100 % Imani Chan GRINDER SET UP OPERATOR SURFACE-MOTOR EQUIPMENT SERGEANT Work Phone: [facility] [employer] [facility] 08-21-2023 08:03-0500 Systolic blood pressure 151 mm[Hg] Imani Chan GRINDER SET UP OPERATOR SURFACE-MOTOR EQUIPMENT SERGEANT Work Phone: [facility] [employer] [facility] 06-28-2023 10:34-0500 Body height 149.9 cm Evans Verhoff PA-C Work Phone: [facility] [employer] [facility] 06-28-2023 10:34-0500 Body mass index (BMI) [Ratio] 38.78 kg/m2 Evans Verhoff PA-C Work Phone: [facility] [employer] [facility] 06-28-2023 10:34-0500 Body weight 87.09 kg Evans Verhoff PA-C Work Phone: [facility] [employer] [facility] 06-28-2023 10:34-0500 Diastolic blood pressure 107 mm[Hg] Evans Verhoff PA-C Work Phone: [facility] 06-28-2023 10:34-0500 Heart rate 93 /min Evans Verhoff PA-C Work Phone: [facility] 06-28-2023 10:34-0500 SaO2% (BldA) [Mass fraction] 97 % Evans Verhoff PA-C Work Phone: [facility] 06-28-2023 10:34-0500 Systolic blood pressure 139 mm[Hg] Evans Verhoff PA-C Work Phone: [facility] 05-29-2023 14:39-0500 Blood Pressure Location Josechamp GARCIA [facility] 05-29-2023 14:39-0500 Diastolic blood pressure 83 mm[Hg] Jose GARCIA [facility] 05-29-2023 14:39-0500 Heart rate 88 /min Josechamp GARCIA [facility] 05-29-2023 14:39-0500 Respiratory rate 16 /min Jose GARCIA [facility] 05-29-2023 14:39-0500 Systolic blood pressure 131 mm[Hg] Jose GARCIA [facility] 11-24-2022 13:48-0400 Diastolic blood pressure 106 mm[Hg] Beth LANIEAM [facility] 11-24-2022 13:48-0400 Mean blood pressure 121 mm[Hg] Beth SALAM [facility] 11-24-2022 13:48-0400 Systolic blood pressure 152 mm[Hg] Beth SALAM [facility] 11-24-2022 13:46-0400 Blood Pressure Location Beth SALAM [facility] 11-24-2022 13:46-0400 Diastolic blood pressure 118 mm[Hg] Beth SALAM [facility] 11-24-2022 13:46-0400 Heart rate 80 /min Beth SALAM [facility] 11-24-2022 13:46-0400 Respiratory rate 16 /min Beht SALAM [facility] 11-24-2022 13:46-0400 Systolic blood pressure 161 mm[Hg] Beth SALAM [facility] 04-26-2022 12:03-0400 Blood Pressure Location Jose GARCIA [facility] 04-26-2022 12:03-0400 Diastolic blood pressure 95 mm[Hg] Jose GARCIA [facility] 04-26-2022 12:03-0400 Heart rate 102 /min Jose GARCIA [facility] 04-26-2022 12:03-0400 Systolic blood pressure 141 mm[Hg] Jose GARCIA [facility] 02-21-2022 12:39-0400 Body weight 88.81 kg Shiraz Roy DO Work Phone: [facility] 02-21-2022 12:39-0400 Diastolic blood pressure 85 mm[Hg] Shiraz Roy DO Work Phone: [facility] 02-21-2022 12:39-0400 Heart rate 76 /min Shiraz Roy DO Work Phone: [facility] 02-21-2022 12:39-0400 Systolic blood pressure 138 mm[Hg] Shiraz Roy DO Work Phone: [facility] 12-09-2021 09:00-0400 Body height 160.02 cm Alexis Young II Other [facility] Other 12-09-2021 09:00-0400 Body mass index (BMI) [Ratio] 34.47 kg/m2 Alexis Dany II Other [facility] Other 12-09-2021 09:00-0400 Body weight 88.27 kg Alexis Dany II Other [facility] Other 11-17-2021 15:30-0400 Body height 160.02 cm Alexis Young II Other [facility] Other 11-17-2021 15:30-0400 Body mass index (BMI) [Ratio] 32.41 kg/m2 Alexis Dany II Other [facility] Other 11-17-2021 15:30-0400 Body weight 83.01 kg Alexis Dany II Other [facility] Other Encounters Encounter Date Encounter Type Care Provider Facility Start: 12-10-2024 ambulatory LESLIE Singleton ty:[facility] Start: 10-07-2024 ambulatory Jose Singleton ty:[facility] [place] Start: 09-30-2024 End: 09-30-2024 Bamboo flowsheet Essie Ryan POWER SCREWDRIVER OPERATOR Work Phone: [facility] Start: 09-30-2024 End: 09-30-2024 Bamboo flowsheet Essie Ryan POWER SCREWDRIVER OPERATOR Work Phone: [facility] Start: 09-30-2024 End: 09-30-2024 Office outpatient visit 25 minutes Essie Shelby POWER SCREWDRIVER OPERATOR Work Phone: [facility] Comment on above: Dizziness and giddin ess (Primary Dx); NIRMALA (obstructive sleep apnea); Morbid (severe) obesity due to excess calories (CMS/HCC); Bipolar disorder, unspecified (CMS/HCC); Mixed hyperlipidemia (CMS/[facility]); Anxiety; Chronic right hip pain; Gastroesophageal reflux disease, unspecified whether esophagitis present; Left hip pain Start: 09-30-2024 End: 09-30-2024 ambulatory ESSIE RYAN Not Available Start: 09-27-2024 End: 09-27-2024 ambulatory [facility] Start: 09-09-2024 End: 09-09-2024 Clinisync Result Encounter Generic External Data Provider [facility] External Department Unsolicited Start: 09-09-2024 End: 09-09-2024 Clinisync Result Encounter Generic External Data Provider [facility] External Department Unsolicited Start: 09-06-2024 End: 09-06-2024 Postop follow up visit related to original px Jeff Rossi MD Work Phone: [facility] Comment on above: Obstructive sleep ap shanice (Primary Dx) Start: 09-06-2024 End: 09-06-2024 ambulatory JEFF ROSSI [facility] Start: 08-29-2024 End: 08-29-2024 Clinisync Result Encounter Essie Ryan POWER SCREWDRIVER OPERATOR Work Phone: [facility] External Department Unsolicited Start: 08-29-2024 End: 08-29-2024 Clinisync Result Encounter Essie Ryan POWER SCREWDRIVER OPERATOR Work Phone: [facility] External Department Unsolicited Start: 08-28-2024 End: 08-28-2024 Bamboo flowsheet Essie Ryan POWER SCREWDRIVER OPERATOR Work Phone: [facility] Start: 08-28-2024 End: 08-28-2024 Bamboo flowsheet Essie yRan POWER SCREWDRIVER OPERATOR Work Phone: [facility] Start: 08-28-2024 End: 08-28-2024 Office outpatient visit 25 minutes Essie Ryan POWER SCREWDRIVER OPERATOR Work Phone: [facility] Comment on [...] whether esophagitis present; Dizziness and giddiness Start: 08-28-2024 End: 08-28-2024 ambulatory ESSIE RYAN Not Available Start: 08-22-2024 End: 08-22-2024 Evaluation and management of inpatient [facility] Start: 07-30-2024 End: 07-30-2024 Patient encounter procedure Lois Mckeon MD Work Phone: Orthopaedics Comment on above: Pain of right hip (P rimary Dx) Start: 07-30-2024 End: 07-30-2024 Clinisync Result Encounter Generic External Data Provider [facility] External Department Unsolicited Start: 07-30-2024 End: 07-30-2024 Clinisync Result Encounter Generic External Data Provider [facility] External Department Unsolicited Start: 07-30-2024 End: 07-30-2024 ambulatory LOIS MCKEON Facility:[facility] Start: 07-30-2024 End: 07-30-2024 Subsequent hospital visit by physician Jose A [facility] Work Phone: Radiology Comment on above: oa Start: 07-29-2024 End: 07-29-2024 Telephone encounter Jeff Rossi MD Work Phone: [facility] Start: 07-26-2024 End: 07-26-2024 Telephone encounter Jeff Rossi MD Work Phone: [facility] Start: 07-23-2024 End: 07-23-2024 ambulatory JEFF ROSSI [facility] Start: 07-23-2024 End: 07-23-2024 Patient encounter procedure [facility] 4 [facility] Start: 07-01-2024 End: 07-01-2024 ambulatory LOIS MCKEON Facility:[facility] Start: 06-08-2024 End: 06-11-2024 Clinisync Result Encounter [...] 06-05-2024 End: 06-05-2024 Admission to establishment [facility] [place] [id number] Work Phone: Pre Anesthesia Start: 06-05-2024 End: 06-05-2024 ambulatory [facility] Facility:[facility] Start: 06-05-2024 End: 06-05-2024 Anesthesia consultation Pac 3 Work Phone: Pre Anesthesia Comment on above: Pre-op evaluation (P rimary Dx); NIRMALA (obstructive sleep apnea); Gastroesophageal reflux disease, unspecified whether esophagitis present; Pulmonary HTN (HCC); Other hyperlipidemia; BMI 37.0-37.9, adult Start: 06-05-2024 Encounter for other preprocedural examination LOIS MCKEON [facility] Start: 06-05-2024 End: 06-05-2024 Preprocedural examination done Pac 3 Work Phone: [facility] Work Phone: Start: 05-29-2024 End: 05-29-2024 Office outpatient visit 25 minutes Essie Ryan POWER SCREWDRIVER OPERATOR Work Phone: [facility] Comment on above: Bipolar 1 disorder ( CMS/HCC) (Primary Dx); NIRMALA (obstructive sleep apnea); PAH (pulmonary artery hypertension) (CMS/HCC); Chronic right hip pain; Morbid (severe) obesity due to excess calories (CMS/HCC); Anxiety; Chronic rhinitis; Body mass index (BMI) 38.0-38.9, adult Start: 05-29-2024 End: 05-29-2024 ambulatory ESSIE RYAN Not Available Start: 05-29-2024 End: 05-29-2024 Bamboo flowsheet Essie Ryan POWER SCREWDRIVER OPERATOR Work Phone: [facility] Start: 05-29-2024 End: 05-29-2024 Bamboo flowsheet Essie Ryan POWER SCREWDRIVER OPERATOR Work Phone: [facility] Start: 05-24-2024 End: 05-24-2024 Admission to same day surgery center Lois Mckeon MD Work Phone: Orthopaedics Comment on above: Schedule Surgery Start: 05-24-2024 End: 05-24-2024 ambulatory Lois Mckeon MD Work Phone: Orthopaedics Start: 05-17-2024 End: 05-17-2024 Office outpatient visit 15 minutes Jeff Rossi MD Work Phone: [facility] Comment on above: Obstructive sleep ap shanice (Primary Dx) Start: 05-17-2024 End: 05-17-2024 ambulatory JEFF ROSSI [facility] Start: 05-09-2024 End: 06-01-2024 Telephone encounter Lois Mckeon MD Work Phone: Orthopaedics Comment on above: Question (See note) Start: 05-09-2024 End: 05-09-2024 Evaluation and management of inpatient LAYNE HILARY MYKEL [facility] Start: 05-09-2024 End: 05-09-2024 Evaluation and management of inpatient [facility] Start: 05-06-2024 End: 05-06-2024 Evaluation and management of inpatient ESSIE Dolan [facility] Start: 05-02-2024 End: 05-06-2024 Admission to [facility] Phone Call Provider 2 [facility] Start: 04-19-2024 End: 04-19-2024 Telephone encounter Jeff Rossi MD Work Phone: [facility] Start: 04-19-2024 End: 04-19-2024 Office outpatient new 30 minutes Jeff Rossi MD Work Phone: [facility] Comment on above: NIRMALA (obstructive sle ep apnea) (Primary Dx) Start: 04-19-2024 End: 04-19-2024 ambulatory [facility] Start: 04-16-2024 End: 04-16-2024 ambulatory LOIS MCKEON Facility:[facility] Start: 04-16-2024 End: 04-16-2024 Patient encounter procedure Lois Mckeon MD Work Phone: Orthopaedics Comment on above: Primary osteoarthrit is of right hip (Primary Dx); Status post right hip replacement Start: 04-10-2024 End: 04-10-2024 Bamboo flowsheet Essie Ryan POWER SCREWDRIVER OPERATOR Work Phone: [facility] Start: 04-10-2024 End: 04-10-2024 Bamboo flowsheet Essie Ryan POWER SCREWDRIVER OPERATOR Work Phone: [facility] Start: 04-10-2024 End: 04-10-2024 Office outpatient visit 25 minutes Essie Ryan POWER SCREWDRIVER OPERATOR Work Phone: [facility] Comment on above: Bipolar disorder, un specified (CMS/HCC) (Primary Dx); Neuritis of right median nerve; Neuritis of left median nerve; Morbid (severe) obesity due to excess calories ([facility]); Body mass index (BMI) 38.0-38.9, adult; Anxiety; PAH (pulmonary artery hypertension) ([facility]); Chronic rhinitis; Gastroesophageal reflux disease, unspecified whether esophagitis present; Needs flu shot Start: 04-10-2024 End: 04-10-2024 ambulatory ESSIE RYAN Not Available Start: 03-19-2024 End: 03-19-2024 Patient encounter procedure Lois Mckeon MD Work Phone: Orthopaedic Surgery [facility] Comment on above: Pain of right hip (P rimary Dx); Primary osteoarthritis of right hip Start: 03-19-2024 End: 03-19-2024 ambulatory LOIS MCKEON Facility:[facility] Start: 03-19-2024 End: 03-19-2024 Subsequent hospital visit by physician [facility] Xray [facility] Comment on above: Pain in right hip [M 25.551] Start: 03-18-2024 End: 03-22-2024 Telephone encounter Lois Mckeon MD Work Phone: [facility]opaedic Surgery [facility] Start: 03-06-2024 End: 03-06-2024 Clinisync Result Encounter Generic External Data Provider [facility] External Department Unsolicited Start: 03-06-2024 End: 03-06-2024 Clinisync Result Encounter Generic External Data Provider [facility] External Department Unsolicited Start: 03-06-2024 End: 03-06-2024 ambulatory [facility] Start: 03-06-2024 End: 03-06-2024 ambulatory [facility] Start: 02-29-2024 End: 02-29-2024 Bamboo flowsheet Essie Ryan POWER SCREWDRIVER OPERATOR Work Phone: [facility] Start: 02-29-2024 End: 02-29-2024 Bamboo flowsheet Essie Ryan POWER SCREWDRIVER OPERATOR Work Phone: [facility] Start: 02-29-2024 End: 02-29-2024 Office outpatient visit 25 minutes Essie Shelby POWER SCREWDRIVER OPERATOR Work Phone: [facility] Comment on above: Bipolar disorder, cu rrent episode mixed, moderate (CMS/HCC) (Primary Dx); Chronic rhinitis; Gastroesophageal reflux disease, unspecified whether esophagitis present; BMI 38.0-38.9,adult; Neuritis of left median nerve; Neuritis of right median nerve; Bipolar disorder, unspecified (CMS/HCC) Start: 02-29-2024 End: 02-29-2024 ambulatory ESSIE ROLONJACOB Not Available Start: 01-30-2024 End: 01-30-2024 ambulatory ESSIE ROLONJACOB Not Available Start: 12-13-2023 End: 12-14-2023 ambulatory JOSIAS LOPEZ Not Available Start: 12-11-2023 End: 12-13-2023 ambulatory TINO VALDEZJANUARY Not Available Start: 12-04-2023 End: 12-05-2023 ambulatory TINO VALDEZSAMMYY Not Available Start: 11-30-2023 End: 12-01-2023 ambulatory TINO HEATHY Not Available Start: 11-28-2023 End: 11-29-2023 ambulatory JOSIAS Edward JOHN Not Available Start: 11-28-2023 End: 11-28-2023 ambulatory LESLIE JUNG Facility:[facility] Start: 11-28-2023 End: 11-28-2023 Patient encounter procedure LESLIE JUNG [facility] Start: 11-23-2023 End: 11-24-2023 ambulatory KOLE FULTON Not Available Start: 11-21-2023 End: 11-22-2023 ambulatory JAMIE RANDHAWA Not Available Start: 11-16-2023 End: 11-16-2023 ambulatory JAMIE RANDHAWA Not Available Start: 11-12-2023 End: 11-13-2023 Refill Imani Chan GRINDER SET UP OPERATOR SURFACE-MOTOR EQUIPMENT SERGEANT Work Phone: [facility] Comment on above: Chronic right hip pa in Start: 11-08-2023 End: 11-08-2023 ambulatory SHAIKH CHRISTOPHER Not Available Start: 11-08-2023 End: 11-08-2023 ambulatory JANET MODI Not Available Start: 10-25-2023 End: 10-25-2023 ambulatory SHAIKH CHRISTOPHER Not Available Start: 09-20-2023 Telephone encounter Nora FROST [facility] Start: 09-12-2023 End: 09-12-2023 ambulatory IMANI Marita OSMAR [facility] Start: 09-12-2023 End: 09-12-2023 Office outpatient visit 15 minutes [facility] GRINDER SET UP OPERATOR SURFACE-MOTOR EQUIPMENT SERGEANT Work Phone: [facility] Comment on above: Chronic right hip pa in (Primary Dx) Start: 09-01-2023 End: 09-02-2023 ambulatory PJ GANNON [facility] Start: 08-21-2023 End: 08-21-2023 ambulatory [facility] Start: 08-21-2023 End: 08-21-2023 Office outpatient visit 25 minutes Evans Anderson PA-C Work Phone: [facility] Comment on above: Chronic right hip pa in (Primary Dx); Lumbar neuritis Start: 07-11-2023 End: 07-11-2023 ambulatory Juliana Block Other [facility] Other Start: 07-11-2023 Office outpatient vi sit 25 minutes Juliana Block [facility] Start: 06-28-2023 End: 06-28-2023 ambulatory EVANS ANDERSON [facility] Start: 06-28-2023 End: 06-28-2023 Office outpatient visit 15 minutes Evans Anderson PA-C Work Phone: [facility] Comment on above: Lumbar radiculopathy (Primary Dx) Start: 05-29-2023 End: 05-29-2023 Patient encounter procedure Jose GARCIA [facility] Start: 02-02-2023 End: 02-02-2023 Lab Drop off Ignacia KHAN [facility] Start: 02-01-2023 End: 02-01-2023 Patient encounter procedure Beth SALAM [facility] Start: 12-06-2022 End: 12-06-2022 Patient encounter procedure Beth SALAM [facility] Start: 11-24-2022 End: 11-24-2022 Patient encounter procedure Betharabella KHAN [facility] Start: 11-22-2022 End: 11-23-2022 ambulatory CAN VALERA Facility:[facility]1 Start: 11-08-2022 ambulatory NARCAINRANMONA LAKSHMIPATHY . Facility:[facility] Start: 10-26-2022 End: 10-27-2022 [...] encounter procedure Jose GARCIA [facility] [place] Start: 04-22-2022 End: 04-23-2022 ambulatory NIURKA RYAN Facility:[facility] Start: 03-29-2022 End: 03-30-[address] MARKO MORALES . Facility:[facility] Start: 03-22-2022 End: 03-23-2022 ambulatory NIURKA RYAN Facility:[facility] Start: 03-22-2022 End: 03-23-[address] MARKO MORALES . Facility:[facility] Start: 03-08-2022 End: 03-09-[address] NEDA CACERES Facility:[facility] Start: 03-08-2022 End: 03-08-2022 Patient encounter procedure Jose GARCIA [facility] Start: 03-07-2022 End: 03-08-2022 ambulatory NIURKA CARPENTER CHARLIJenniferJACOB Facility:[facility]1 Start: 02-21-2022 End: 02-21-2022 Patient encounter procedure Shiraz Roy DO Work Phone: Spine Medicine Comment on above: Tendinopathy of righ t gluteal region (Primary Dx); Trochanteric bursitis of right hip; Chronic bilateral low back pain without sciatica; Lumbar spondylosis Start: 02-09-2022 End: 02-10-2022 ambulatory MOTOR EQUIPMENT SERGEANT ESSIE RYAN Facility:[facility] Start: 01-24-2022 End: 01-24-2022 ambulatory MOTOR EQUIPMENT SERGEANT ESSIE RYAN Facility: Start: 01-17-2022 End: 01-17-2022 Patient encounter procedure Jorge Luis Page DO Work Phone: Orthopaedics Comment on above: Trochanteric bursiti s of right hip (Primary Dx); Lumbago-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 Start: 01-05-2022 End: 01-05-2022 ambulatory Alexis Young II Other [facility] Other Start: 01-05-2022 Telephone encounter Alexis Young II [facility] Start: 12-31-2021 End: 12-31-2021 Patient encounter procedure Jorge Luis Page DO Work Phone: Orthopaedics Comment on above: Trochanteric bursiti s of right hip (Primary Dx) Start: 12-09-2021 End: 12-09-2021 ambulatory Alexis Dany II Other [facility] Other Start: 12-09-2021 Office outpatient vi sit 25 minutes Alexis Young II [facility] Start: 11-17-2021 End: 11-17-2021 ambulatory Alexis Young II Other [facility] Other Start: 11-17-2021 Office outpatient ne w 45 minutes Alexis Dany II [facility] Start: 06-02-2017 End: 06-03-2017 Ambulatory DEFAULT PHYSICIAN Facility:[facility] Start: 05-15-2017 End: 05-16-2017 Ambulatory DEFAULT PHYSICIAN Facility:[facility] Start: 05-01-2017 End: 05-02-2017 Ambulatory DEFAULT PHYSICIAN Facility:[facility] Procedures Date Procedure Procedure Detail Performing Clinician Start: 09-09-2024 XR ABDOMEN 1V Generic E xternal Data Provider Start: 09-09-2024 US RENAL BI Generic Ex ternal Data Provider Start: 08-29-2024 ALL CBC WITH AUTO DIFF Essie Ryan POWER SCREWDRIVER OPERATOR Work Phone: Start: 07-30-2024 Radex hip unilateral with pelvis 2-3 views Mayito Gifford PA-C Work Phone: Start: 07-30-2024 XR HIP 3V PELV+ AP/LAT RT Generic External Data Provider Start: 06-08-2024 Bacteria identified in Urine by Culture Generic External Data Provider Start: 06-05-2024 [facility] CBC W AUTO DIFF BLD Generic External Data Provider Start: 06-05-2024 Ecg routine ecg w/le ast 12 lds i&r only Negrita Tejeda GRINDER SET UP OPERATOR SURFACE.MOTOR EQUIPMENT SERGEANT Work Phone: Start: 03-19-2024 Radex hip unilateral with pelvis 2-3 views Mayito Gifford PA-C Work Phone: Start: 03-06-2024 ALL LIPID PROFILE (FASTING) Generic External Data Provider Start: 03-06-2024 [facility] LIVER PANEL Generi c External Data Provider Start: 08-17-2023 Mammography Essei Nawaf cristina POWER SCREWDRIVER OPERATOR Work Phone: Start: 12-24-2022 Lobectomy of thyroid [...] (1 of 3 - Risk 3-dose series) [facility] Start: 06-05-2027 Diabetes Screening Diabetes Screening [facility] Start: 09-06-2025 Adult BMI Screening Adult BMI Screening [facility] Start: 08-22-2025 Tobacco Screening Tobacco Screening [facility] Start: 07-23-2025 Adult BMI Screening Adult BMI Screening [facility] Start: 07-23-2025 Tobacco Screening Tobacco Screening [facility] Start: 05-17-2025 Adult BMI Screening Adult BMI Screening [facility] Start: 05-17-2025 Tobacco Screening Tobacco Screening [facility] Start: 05-09-2025 Adult BMI Screening Adult BMI Screening [facility] Start: 05-09-2025 Tobacco Screening Tobacco Screening [facility] Start: 04-19-2025 Adult BMI Screening Adult BMI Screening [facility] Start: 04-19-2025 Tobacco Screening Tobacco Screening [facility] Start: 01-01-2025 End: 01-01-2025 Patient encounter procedure 01/01/2025 1:00 PM EDT Office Visit [facility] [address] [place] [address] Essie Ryan NP [address] [place] [address] [facility] Start: 10-01-2024 End: 10-01-2024 Patient encounter procedure 10/01/2024 1:20 PM EDT Office Visit Orthopaedics [address] [place], [place] [id number] Lois Mckeon MD [address] [place] [phone] 2mo follow up - DOS 07/01/24 Orthopaedics Comment on above: 2mo follow up - DOS 07/01/24 Start: 09-30-2024 End: 09-30-2025 XR Hip - left 3 Views XR hip left 2 or 3 views Imaging Routine Left hip pain Expected: 09/30/2024, Expires: 09/30/2025 [facility] Work Phone: Comment on above: Expected: 09/30/2024, Expires: Start: 09-30-2024 End: 09-30-2024 Patient encounter procedure [facility] Comment on above: Dizziness and giddiness (Primary Dx); NIRMALA (obstructive sleep apnea); Morbid (severe) obesity due to excess calories (CMS/HCC) Start: 09-11-2024 Tobacco Screening Tobacco Screening [facility] Start: 08-28-2024 End: 08-28-2025 CBC W Auto Differential panel - Blood CBC and differential Lab Routine Dizziness and giddiness Expected: 08/28/2024 (Approximate), Expires: 08/28/2025 [facility] Comment on above: Expected: 08/28/2024 (Approximate), Expi res: 08/28/2025 Start: 08-28-2024 End: 08-28-2025 Comprehensive metabolic 2000 panel - Serum or Plasma Comprehensive metabolic panel Lab Routine Dizziness and giddiness Expected: 08/28/2024 (Approximate), Expires: 08/28/2025 [facility] Comment on above: Expected: 08/28/2024 (Approximate), Expi res: 08/28/2025 Start: 08-28-2024 End: 08-28-2025 Ferritin [Mass/volume] in Serum or Plasma Ferritin Lab Routine Dizziness and giddiness Expected: 08/28/2024 (Approximate), Expires: 08/28/2025 [facility] Comment on above: Expected: 08/28/2024 (Approximate), Expi res: 08/28/2025 Start: 08-28-2024 End: 08-28-2025 Iron + transferrin + TIBC Iron + transferrin + TIBC Lab Routine Dizziness and giddiness Expected: 08/28/2024 (Approximate), Expires: 08/28/2025 [facility] Comment on above: Expected: 08/28/2024 (Approximate), Expi res: 08/28/2025 Start: 08-28-2024 End: 08-28-2025 Lipid 1996 panel - Serum or Plasma Lipid panel Lab Routine Mixed hyperlipidemia (CMS/HCC) Expected: 08/28/2024 (Approximate), Expires: 08/28/2025 [facility] Comment on above: Expected: 08/28/2024 (Approximate), Expi res: 08/28/2025 Start: 08-28-2024 End: 10-28-2025 MG Breast - bilateral Screening Bilateral screening mammogram Imaging Routine Encounter for screening mammogram for malignant neoplasm of breast Expected: 08/28/2024 (Approximate), Expires: 10/28/2025 [facility] Work Phone: Comment on above: Expected: 08/28/2024 (Approximate), Expi res: 10/28/2025 Start: 08-28-2024 End: 08-28-[address] [facility] Comment on above: NIRMALA (obstructive sleep apnea) (Primary D x); Morbid (severe) obesity due to excess calories (CMS/HCC); Mixed hyperlipidemia (CMS/HCC); Body mass index (BMI) 38.0-38.9, adult; Bipolar disorder, unspecified (CMS/HCC); Pulmonary hypertension, unspecified (CMS/HCC); Crohn's disease of both small and large intestine without complications (CMS/HCC); PAH (pulmonary artery hypertension) (CMS/HCC); Gastro-esophageal reflux disease without esophagitis; S/P total right hip arthroplasty; Encounter for screening mammogram for malignant neoplasm of breast Start: 08-21-2024 Adult BMI Screening Adult BMI Screening [facility] Start: 08-17-2024 Screening for malignant neoplasm of breast Mammogram [facility] Start: 08-07-2024 End: 08-07-2024 Patient encounter procedure 08/07/2024 8:15 AM EST Office Visit [facility] [address] [place] [address], [address] [place] [address] Jeff Rossi MD [address] [place] [address] [address] [place] [address] [facility] Start: 08-01-2024 End: 08-01-2024 Admission to same day surgery center 08/01/2024 11:30 AM EST - 08/01/2024 3:30 PM EST Surgery [facility] - Surgery [address] [place] [address] Jeff Rossi MD [address] [place] [address] [address] [place] [address] INSERTION STIMULATOR NERVE HYPOGLOSSAL - Inspire [18898 (CPT )] [facility] Surgery Comment on above: INSERTION STIMULATOR NERVE HYPOGLOSSAL - Inspire [04483 (CPT )] Start: 08-01-2024 End: 08-01-2024 INSERTION STIMULATOR NERVE HYPOGLOSSAL INSERTION STIMULATOR NERVE HYPOGLOSSAL Obstructive sleep apnea NIRMALA (obstructive sleep apnea) 08/01/2024 11:30 AM EST [facility] Start: 08-01-2024 Subsequent hospital visit by physician 08/01/2024 11:30 AM EST Hospital Encounter [facility] Surgery [facility] [place] [address] Jeff Rossi MD [address] [place] [address] [address] [place] [address] [facility] Start: 08-01-2024 End: 08-01-2024 Admission to same day surgery center 08/01/2024 7:30 AM EST - 08/01/2024 11:30 AM EST Surgery [place] [address] [place] [address] Jeff Rossi MD [address] [place] [address] [address] [place] [address] INSERTION STIMULATOR NERVE HYPOGLOSSAL - Inspire [49695 (CPT )] [facility] Surgery Comment on above: INSERTION STIMULATOR NERVE HYPOGLOSSAL - Inspire [40693 (CPT )] Start: 08-01-2024 End: 08-01-2024 INSERTION STIMULATOR NERVE HYPOGLOSSAL INSERTION STIMULATOR NERVE HYPOGLOSSAL Obstructive sleep apnea NIRMALA (obstructive sleep apnea) 08/01/2024 7:30 AM EST [facility] Start: 08-01-2024 Subsequent hospital visit by physician 08/01/2024 7:30 AM EST Hospital Encounter [facility] Surgery [address] [place] [address] Jeff Rossi MD [address] [facility] [address] [place] [address] [facility] Surgery Start: 07-30-2024 End: 07-30-2024 Patient encounter procedure Radiology Comment on above: post op xray right hip Surgical post op Start: 07-23-2024 End: 07-23-2024 Patient encounter procedure 07/23/2024 2:15 PM EST Procedure visit [facility] On [address] [address] [facility] Start: 07-01-2024 End: 07-01-2024 Admission to same day surgery center 07/01/2024 4:32 PM EST - 07/01/2024 6:47 PM EST Surgery [facility] Operating Room [address] [place] [address] Lois Mckeon MD [address] [place] [address] ARTHROPLASTY REPLACE JOINT TOTAL HIP [facility] Operating Room Comment on above: ARTHROPLASTY REPLACE JOINT TOTAL HIP Start: 07-01-2024 End: 07-01-2024 Arthrp acetblr/prox fem prostc agrft/algrft ARTHROPLASTY REPLACE JOINT TOTAL HIP Primary osteoarthritis of right hip 07/01/2024 4:32 PM EST [facility] Start: 07-01-2024 Subsequent hospital visit by physician 07/01/2024 4:32 PM EST Hospital Encounter [facility] Operating Room [facility] [address] [address] Lois Mckeon MD [address] [place] [address] Primary osteoarthritis of right hip [M16.11] [facility] Operating Room Comment on above: Primary osteoarthritis of right hip [M16 .11] Start: 06-28-2024 Adult BMI Screening Adult BMI Screening [facility] Start: 06-28-2024 Tobacco Screening Tobacco Screening [facility] Start: 06-05-2024 End: 09-04-2024 Basic metabolic 2000 panel - Serum or Plasma [facility] Comment on above: Expected: 06/05/2024, Expires: Start: 06-05-2024 End: 09-04-2024 CBC W Auto Differential panel - Blood [facility] Work Phone: Comment on above: Expected: 06/05/2024, Expires: Start: 06-05-2024 End: 09-04-2024 Ferritin [Mass/volume] in Serum or Plasma [facility] Comment on above: Expected: 06/05/2024, Expires: Start: 06-05-2024 End: 09-04-2024 Iron and Iron binding capacity panel - Serum or Plasma [facility] Comment on above: Expected: 06/05/2024, Expires: Start: 06-05-2024 End: 06-05-2024 Anesthesia consultation 06/05/2024 10:30 AM EST PAT Pre Anesthesia [address] [place] [address] ARTHROPLASTY REPLACE JOINT TOTAL HIP [3131] - Hip - Right Pre Anesthesia Comment on above: ARTHROPLASTY REPLACE JOINT TOTAL HIP [31 31] - Hip - Right Start: 05-29-2024 End: 05-29-2024 Patient encounter procedure 05/29/2024 2:20 PM EST Office [facility] [address] [place] [address] Essie Ryan NP [address] [place] [address] NIRMALA (obstructive sleep apnea) (Primary Dx); PAH (pulmonary artery hypertension) (CMS/HCC); Chronic right hip pain; Morbid (severe) obesity due to excess calories (CMS/HCC); Bipolar 1 disorder (CMS/HCC); Anxiety [facility] Comment on above: NIRMALA (obstructive sleep apnea) (Primary D x); PAH (pulmonary artery hypertension) ([facility]/HCC); Chronic right hip pain; Morbid (severe) obesity due to excess calories (CMS/HCC); Bipolar 1 disorder ([facility]/HCC); Anxiety Start: 05-21-2024 End: 05-21-2024 Patient encounter procedure 05/21/2024 9:00 AM EST [facility] [address] [place] [address] Essie Ryan NP [address] [place] [address] [facility] Start: 05-17-2024 End: 05-17-2024 Patient encounter procedure 05/17/2024 8:15 AM EST [facility] [address] [place] [address] Jeff Rossi MD [address] [place] [address] [address] [place] [address] [facility] Start: 05-09-2024 End: 05-09-2024 Admission to same day surgery center 05/09/2024 10:30 AM EST - 05/09/2024 11:00 AM EST Surgery [facility] [address] [place] [address] Jeff Rossi MD [address] [place] [address] [address] [place] [address] ENDOSCOPIC DIAGNOSTIC DRUG INDUCED SLEEP [85489 (CPT )] [facility] Comment on above: ENDOSCOPIC DIAGNOSTIC DRUG INDUCED SLEEP [74897 (CPT )] Start: 05-09-2024 Subsequent hospital visit by physician 05/09/2024 10:30 AM EST Hospital Encounter [facility] Surgery [address] [place] [address] Jeff Rossi MD [address] [facility] [address] [place] [address] [facility] - Surgery Start: 05-09-2024 End: 05-09-2024 ENDOSCOPIC DIAGNOSTIC DRUG INDUCED SLEEP [facility] Start: 05-02-2024 End: 05-02-2024 Admission to establishment 05/02/2024 3:45 PM EST Support Visit [facility] On [facility] [address] [place] [phone] [facility] Start: 04-16-2024 End: 04-16-2024 Patient encounter procedure 04/16/2024 1:10 PM EDT Office Visit Orthopaedics [address] [place], [place] [phone] Lois Mckeon MD [address] [place] [address] MRI follow up Orthopaedics Comment on above: MRI follow up Start: 04-10-2024 End: 04-10-2024 Patient encounter procedure [facility] Comment on above: Arrived Start: 02-29-2024 End: 02-29-2024 Patient encounter procedure 02/29/2024 8:40 AM EDT Office Visit [facility] [address] [place] [address] Essie Ryan NP [address] [place] [address] Chronic rhinitis; Gastroesophageal reflux disease, unspecified whether esophagitis present [facility] Comment on above: Chronic rhinitis; Gastroesophageal reflux disease, unspecified whether esophagitis present Start: 02-25-2024 Covid-19 Vaccine () Covid-19 Vaccine ( season) [facility] Start: 02-25-2024 Influenza vaccination [facility] Start: 12-15-2023 DIABETES SCREEN DIABETES SCREEN [facility] Start: 12-15-2023 Diabetes Screening Diabetes Screening [facility] Start: 09-12-2023 End: 09-12-2023 Patient encounter procedure 09/12/2023 7:45 AM EDT Office Visit [facility] [address] [place] [address] Imani Chan, GRINDER SET UP OPERATOR SURFACE-MOTOR EQUIPMENT SERGEANT [address] [place] [address] [facility] Start: 09-01-2023 End: 09-01-2023 Admission to same day surgery center 09/01/2023 9:18 AM EST - 09/01/2023 9:22 AM EST Surgery [facility] [address] [place] [address] Pj Gannon MD [address] [place] [address] INJECTION BURSA LARGE JOINT Right Hip [70892 (CPT )] [facility] Comment on above: INJECTION BURSA LARGE JOINT Right Hip [2 0610 (CPT )] Start: 09-01-2023 End: 09-01-2023 Arthrocentesis aspir&/inj major jt/bursa w/o us INJECTION BURSA LARGE JOINT Chronic right hip pain 09/01/2023 9:18 AM EST [facility] Start: 09-01-2023 Subsequent hospital visit by physician 09/01/2023 9:18 AM EST Hospital Encounter [facility] [address] [place] [phone] Pj Gannon MD [address] [place] [address] [facility] Start: 08-30-2023 End: 08-30-2023 Patient encounter procedure 08/30/2023 8:15 AM EST Office Visit [facility] [address] [place] [address] Evans Anderson PA-C [address] [place] [address] [facility] Start: 08-04-2023 Screening for malignant neoplasm of breast Mammogram Screening [facility] Start: 02-24-2023 Influenza vaccination Influenza Vaccine [facility] Start: 02-14-2023 Adult depression screening assessment DEPRESSION SCREENING [facility] Start: 02-24-2022 Influenza vaccination INFLUENZA (#1) [facility] Start: 12-15-2021 Colonoscopy COLONOSCOPY [facility] Start: 12-15-2021 COLORECTAL CANCER SCREENING COLORECTAL CANCER SCREENING [facility] Start: 12-15-2021 Screening for malignant neoplasm of colon [facility] Start: 2021 COLOGUARD (FIT-DNA) COLOGUARD (FIT-DNA) [facility] Start: [address] COLONOGRAPHY [facility] Start: 2021 FECAL OCCULT BLOOD FECAL OCCULT BLOOD [facility] Start: 2021 Lipid panel Lipid Screening [facility] Start: 2021 LIPID SCREEN LIPID SCREEN [facility] Start: 2021 Screening for malignant neoplasm of colon [facility] Start: 2021 SIGMOIDOSCOPY SIGMOIDOSCOPY [facility] Start: 2016 Mammography MAMMOGRAM [facility] Start: 2006 HPV TESTING HPV TESTING [facility] Start: 2006 Screening for malignant neoplasm of cervix HPV/Cotest [facility] Start: 1997 PAP TESTING PAP TESTING [facility] Start: 1997 Screening for malignant neoplasm of cervix [facility] Start: 1995 DTaP,Tdap and Td Vaccines (1 - Tdap) DTaP,Tdap and Td Vaccines (1 - Tdap) [facility] Start: 1995 HEPATITIS B (1 of 3 - Risk 3-dose series) HEPATITIS B (1 of 3 - Risk 3-dose series) [facility] Start: 1995 Hepatitis B Vaccine (1 of 3 - 19+ 3-dose series) Hepatitis B Vaccine (1 of 3 - 19+ 3-dose series) [facility] Start: 1995 Urine microalbumin profile [facility] Start: 1994 Adult BMI Follow Up Plan Adult BMI Follow Up Plan [facility] Start: 1994 Anxiety Screening Anxiety Screening [facility] Start: 1994 Depression Screening Depression Screening [facility] Start: 1994 HIV SCREENING HIV SCREENING [facility] Start: 1994 HIV screening HIV Screening [facility] Start: 1994 MMR (1 of 2 - Risk 2-dose series) MMR (1 of 2 - Risk 2-dose series) [facility] Start: 1988 Adult depression screening assessment DEPRESSION SCREENING [facility] Start: 1986 MENINGOCOCCAL B: Consider based on risk (1 of 4 - Increased Risk Bexsero 2-dose series) MENINGOCOCCAL B: Consider based on risk (1 of 4 - Increased Risk Bexsero 2-dose series) [facility] Start: 1977 HEPATITIS A (1 of 2 - Risk 2-dose series) HEPATITIS A (1 of 2 - Risk 2-dose series) [facility] Start: 1975 COVID-19 VACCINE (#1) COVID-19 VACCINE (#1) [facility] ECG COMPLETE ECG COMPLETE ECG Routine Pre-op evaluation 06/05/2024 10:36 AM EST [facility] End: 04-18-2025 MR Hip - right WO contrast MRI HIP WO IVCON RIGHT Radiology Routine Pain of right hip 1 Occurrences starting 03/19/2024 until 04/18/2025 [facility] Work Phone: Comment on above: 1 Occurrences starting 03/19/2024 until 04/18/2025 End: 08-20-2024 XR Pelvis and Hip - right 2 Views X-ray hip right 2-3 views with or without pelvis Imaging Routine Chronic right hip pain 1 Occurrences starting 08/21/2023 until 08/20/2024 [employer] Work Phone: Comment on above: 1 Occurrences starting 08/21/2023 until 08/20/2024 [facility] Immunizations Immunization Date Immunization Notes Care Provider Fa [facility] 05-03-2012 influenza virus vaccine, whole virus Essie Ryan NP Work Phone: [facility] 05-03-2012 influenza, whole Jose CHRISTOPHER ERS [facility] 05-03-2012 influenza virus vaccine, unspecified formulation Evans Anderson PA-C Work Phone: [facility] Payers Date Payer Category Payer Managed Care HMO (unspecified) [place] [id number] 2024 Unknown [id number] 2022 Medicaid HMO [facility] MEDICAID [id number] 2022 Private Health Insurance [id number] 2020 Medicaid [facility] MEDICAID [facility] MEDICAID [id number] 2020-Present [phone] [address] [place] [address] Medicaid [id number] 2020 Medicaid [id number] [id number] [id number] 1976 Unknown [id number] 2.16.840.1.379171.3.579. 2.593 1976 Unknown [id number] 2.16.840.1.293290.3.579. 2.593 1976 Unknown [id number] 2.16.840.1.252243.3.579. 2.593 1976 Unknown [id number] 2.16.840.1.065251.3.579. 2.593 1976 Unknown [id number] 2.16.840.1.549919.3.579. 2.593 1976 Unknown [id number] 2.16.840.1.110107.3.579. 2.593 1976 Unknown [id number] 2.16.840.1.337609.3.579. 2.593 1976 Unknown [id number] 2.16.840.1.143012.3.579. 2.593 1976 Unknown [id number] 2.16.840.1.279394.3.579. 2.593 1976 Unknown [id number] 2.16.840.1.238816.3.579. 2.593 1976 Unknown [id number] 2.16.840.1.120560.3.579. 2.593 1976 Unknown [id number] 2.16.840.1.027782.3.579. 2.593 1976 Unknown [id number] 2.16.840.1.869111.3.579. 2.593 1976 Unknown [id number] 2.16.840.1.700638.3.579. 2.593 1976 Unknown [id number] 2.16.840.1.950085.3.579. 2.593 1976 Unknown [id number] 2.16.840.1.677160.3.579. 2.593 1976 Unknown [id number] 2.16.840.1.861360.3.579. 2.593 1976 Unknown [id number] 2.16.840.1.404908.3.579. 2.593 1976 Unknown [id number] 2.16.840.1.186086.3.579. 2.593 1976 Unknown [id number] 2.16.840.1.399678.3.579. 2.593 1976 Unknown [id number] 2.16.840.1.498199.3.579. 2.593 1976 Unknown [id number] 2.16.840.1.172638.3.579. 2.593 1976 Unknown [id number] 2.16.840.1.966031.3.579. 2.593 1976 Unknown [id number] 2.16.840.1.820066.3.579. 2.1286 1976 Unknown [id number] 2.16.840.1.780726.3.579. 2.1286 1976 Unknown [id number] 2.16.840.1.719627.3.579. 2.1286 1976 Unknown [id number] 2.16.840.1.355779.3.579. 2.1286 1976 Unknown [id number] 2.16.840.1.836617.3.579. 2.1286 1976 Unknown [id number] 2.16.840.1.381878.3.579. 2.1286 1976 Unknown [id number] 2.16.840.1.061923.3.579. 2.1286 1976 Unknown [id number] 2.16.840.1.837835.3.579. 2.1285 1976 Unknown [id number] 2.16.840.1.125327.3.579. 2.128 1976 Unknown [id number] 2.16.840.1.128497.3.579. 2.128 1976 Unknown [id number] 2.16.840.1.946103.3.579. 2.1285 1976 Unknown [id number] 2.16.840.1.020129.3.579. 2.1285 1976 Unknown [id number] 2.16.840.1.019672.3.579. 2.1285 1976 Unknown [id number] 2.16.840.1.942382.3.579. 2.6 1976 Unknown [id number] 2.16.840.1.623783.3.579. 2.727 1976 Unknown [id number] 2.16.840.1.711321.3.579. 2.727 1976 Unknown [id number] 2.16.840.1.019789.3.579. 2.727 1976 Unknown [id number] 2.16.840.1.932363.3.579. 2.1259 1976 Unknown [id number] 2.16.840.1.103320.3.579. 2.9 1976 Unknown [id number] 2.16.840.1.174581.3.579. 2.1259 1976 Unknown [id number] 2.16.840.1.448750.3.579. 2.1259 1976 Unknown [id number] 2.16.840.1.772941.3.579. 2.9 1976 Unknown [id number] 2.16.840.1.742000.3.579. 2.9 1976 Unknown [id number] 2.16.840.1.092648.3.579. 2.1258 1976 Unknown [id number] 2.16.840.1.355485.3.579. 2.1258 1976 Unknown [id number] 2.16.840.1.247404.3.579. 2.1258 1976 Unknown [id number] 2.16.840.1.869419.3.579. 2.1258 1976 Unknown [id number] 2.16.840.1.213202.3.579. 2.1258 1976 Unknown [id number] 2.16.840.1.336844.3.579. 2.1258 1976 Unknown [id number] 2.16.840.1.955454.3.579. 2.1258 1976 Unknown [id number] 2.16.840.1.241319.3.579. 2.1258 1976 Unknown [id number] 2.16.840.1.365463.3.579. 2.1258 1976 Unknown [id number] 2.16.840.1.683603.3.579. 2.1258 1976 Unknown [id number] 2.16.840.1.787664.3.579. 2.9 1959 Unknown [id number] 2.16.840.1.071892.19 1959 Unknown [id number] Unknown Social History Date Type Detail Facility Start: 02-21-2022 End: 08-28-2024 Sex Assigned At [facility] Other Start: 07-27-2016 End: 10-25-2023 Tobacco smoking status NHIS Never smoked tobacco [facility] Start: 07-27-2016 End: 10-25-2023 Tobacco use and exposure Smokeless tobacco non-user [facility] Start: 12-15-2020 End: 09-06-2024 Alcohol intake Current non-drinker of alcohol (finding) [facility] Start: 1975 Sex Assigned At Not on file [facility] Start: 01-07-2022 End: 02-21-2022 Exposure to SARS-CoV-2 (event) Not sure [facility] Tobacco Past [facility] Comment on above: stopped 12 years ago stopped 12 years ago Tobacco smoking status No Smoking Status Entered [facility] Tobacco smoking status Never [facility] Start: 02-21-2022 End: 08-28-2024 History of Social function [facility] Start: 02-29-2024 End: 09-30-2024 Alcoholic beverage intake Lifetime non-drinker (finding) [facility] Start: 01-29-2015 Sex Female (finding) [facility] How hard is it for you to pay for the very basics like food, housing, medical care, and heating Not very hard [facility] Do you feel stress - tense, restless, nervous, or anxious, or unable to sleep at night because your mind is troubled all the time - these days [OSQ] Only a little [facility] NEGATED: Highlighted rowStart: NINF History of tobacco use Passive smoker [facility] Medical Equipment Procedure Code Equipment Code Equipment Origin al Text Equipment Identifier Dates Insert Acetabula r 32mm 0d D Hip X3 Trident Sterile Latex Free - [id number] Start: 07-01-2024 Shell Trident Ii 48mm D Tritanium Acetabular 3 Screw Hole Cluster Sterile - [id number] Start: 07-01-2024 Stem Femoral 8x9 9mm Size 2 High Insignia Collared - [id number] Start: 07-01-2024 Head V40 32mm -4 mm Offset Taper Biolox Delta Femoral Hip - [id number] Start: 07-01-2024 Screw Trident Ii 6.5mm 30mm Bone Low Profile Hexagonal Sterile - [id number] Start: 07-01-2024 Generator Nrstm - [id number] - [id number] Start: 08-22-2024 Lead Ns Respirat ory - [id number] - [id number] Start: 08-22-2024 Lead Nrstm Inspr 3 Elect Cuf Tnl Arnoldo Strl Lf - [id number] - [id number] Start: 08-22-2024 Functional Status Date Assessment Result Facility 11-28-2023 Functional Status N/A [facility] 05-29-2023 Functional Status N/A [facility] 11-24-2022 Functional Status N/A [facility] 04-26-2022 Functional Status N/A [facility] Clinical Notes 12-14-2020 to 09-30-2024 Essie Ryan NP - 09/30/2024 1:46 PM EDKen Ryan NP - 09/30/2024 1:46 PM Raghu Ryan NP - 09/30/2024 1:45 PM EDTHUMBGERARDO ORTIZ - 09/30/2024 1:20 PM EDTPatient Instructions Note Date & Type Note Facility 09-30-2024 History of Presen t illness Narrative Associated Problem(s): Bipolar disorder, unspecified (CMS/HCC) Continue buspar and aripiprazole Associated Problem(s): Anxiety Continue current meds: abilify, buspirone Associated Problem(s): Chronic right hip pain Restarted meloxicam, still with thigh pain, recommend talking w ortho LEFT upper mid thigh pain for about 2 weeks feels like stabbing pain last all night takes otc tylenol which does not help Images from the original note were not included. Stacey Sahu is a 49 y.o. female presents with chief complaint of No chief complaint on file. HPI: Dizziness: vertigo like, once a week, last for short period of time, no relationship to position changes, no diaphoresis, no LOPES, no loss of bowel/bladder Only noted since having surgery No changes in anxiety/depression sxs doses good Left hip pain: 3 weeks, sharp, worse at HS, inner thigh SUBJECTIVE: MEDICATIONS: Current Outpatient Medications Medication Instructions ARIPiprazole (ABILIFY) 15 mg, Oral, Daily atorvastatin (LIPITOR) 80 mg, Oral, Every evening busPIRone (BUSPAR) 7.5 mg, Oral, 2 times daily meloxicam (MOBIC) 15 mg, Oral, Daily omeprazole (PRILOSEC) 40 mg, Oral, Daily before [...] urinating, dysuria and frequency. Musculoskeletal: Positive for arthralgias and myalgias. Negative for back pain and joint swelling. Skin: Negative for rash and wound. Neurological: Positive for dizziness and light-headedness. Negative for tremors, seizures, syncope and headaches. Psychiatric/Behavioral: Negative for behavioral problems, self-injury and suicidal ideas. The patient is nervous/anxious. Depression/mood disorder Hematological: Does not bruise/bleed easily. Endocrine: Negative for polydipsia, polyphagia and polyuria. Allergic/Immunologic: Negative for environmental allergies and food allergies. PAST MEDICAL HISTORY Past Medical History: Diagnosis Date Acute thigh pain, right Allergic rhinitis Anxiety 07/25/2023 Bipolar disorder Chest pain 02/09/2012 Chronic GERD Chronic rhinitis [...] apnea) Other acute sinusitis 06/07/2023 Other hyperlipidemia 12/14/2020 Pain of right upper extremity Pelvic [...] Dr. Caceres TONSILLECTOMY 1989 TUBAL LIGATION Bilateral 2001 family history includes Cancer in her father and mother; Diabetes in her father; Heart disease in her father; Hypertension in her father. OBJECTIVE: Visit Vitals BP 118/90 (BP Location: Left arm, Patient Position: Sitting, BP Cuff Size: Large adult) Pulse 99 Temp 98.6 F (Temporal) Resp 18 Wt 194 lb SpO2 98% BMI 37.89 kg/m Smoking Status Never BSA 1.93 m Physical Exam Vitals and nursing note reviewed. Constitutional: General: She is not in acute distress. Appearance: Normal appearance. She is obese. She is not ill-appearing. HENT: Head: Normocephalic and atraumatic. Right Ear: Tympanic membrane, ear canal and external ear normal. Left Ear: Tympanic membrane, ear canal and external ear normal. Nose: Nose normal. No congestion or rhinorrhea. Comments: Pallor and boggy Mouth/Throat: Mouth: Mucous membranes are moist. Pharynx: No oropharyngeal exudate or posterior oropharyngeal erythema. Eyes: General: No scleral icterus. Extraocular Movements: Extraocular movements intact. Conjunctiva/sclera: Conjunctivae [...] No edema. Left lower leg: No edema. Comments: Full ROM left hip Lymphadenopathy: Cervical: No cervical adenopathy. Skin: General: Skin is warm and dry. Capillary Refill: Capillary refill takes 2 to 3 seconds. Findings: No rash. Neurological: General: No focal deficit present. Mental Status: She is alert and oriented to person, place, and time. Cranial Nerves: No cranial nerve deficit. Deep Tendon Reflexes: Reflexes normal. Psychiatric: Mood and Affect: Mood normal. Behavior: Behavior normal. Thought Content: Thought content normal. Judgment: Judgment normal. ASSESSMENT AND PLAN: Follow up in about 3 months (around 12/30/2024) for Recheck. Problem List Items Addressed This Visit NIRMALA (obstructive sleep apnea) Had Inspire device placement in 08/20 Activated on 09/27/24 Anxiety Continue current meds: abilify, buspirone Relevant Medications busPIRone (Buspar) 15 MG tablet Hyperlipidemia (CMS/HCC) On statin therapy Check labs yearly and prn dose changes Relevant Medications atorvastatin (Lipitor) 80 MG tablet Chronic right hip pain Restarted meloxicam, still with thigh pain, recommend talking w ortho Relevant Medications meloxicam (Mobic) 15 MG tablet Morbid (severe) obesity due to excess calories (CMS/HCC) Discussed with patient their BMI (actual, verses recommended). We have also discussed lifestyle modifications: attempts to perform physical activity as chronic conditions allow, also to monitor dietary intake: increasing protein/fruits/veggies and lowering carb intake (unless contraindicated). Limit sodas, juices, and sugary drinks.. Bipolar disorder, unspecified (CMS/HCC) Continue buspar and aripiprazole Relevant Medications ARIPiprazole (Abilify) 15 MG tablet Dizziness and giddiness - Primary Last appt was having sxs, ordered labs No acute findings on exam or labs At this point, I would recommend she discuss with Inspire device doctor Left hip pain Relevant Orders XR hip left 2 or 3 views Other Visit Diagnoses Gastroesophageal reflux disease, unspecified whether esophagitis present Relevant Medications omeprazole (PriLOSEC) [address] capsule Associated Problem(s): Hyperlipidemia (CMS/HCC) On statin therapy Check labs yearly and prn dose changes Associated Problem(s): Morbid (severe) obesity due to excess calories (CMS/HCC) Discussed with patient their BMI (actual, verses recommended). We have also discussed lifestyle modifications: attempts to perform physical activity as chronic conditions allow, also to monitor dietary intake: increasing protein/fruits/veggies and lowering carb intake (unless contraindicated). Limit sodas, juices, and sugary drinks.. Associated Problem(s): NIRMALA (obstructive sleep apnea) Had Inspire device placement in 08/20 Activated on 09/27/24 Associated Problem(s): Dizziness and giddiness Last appt was having sxs, ordered labs No acute findings on exam or labs At this point, I would recommend she discuss with Inspire device doctor documented in this encounter [facility] 09-30-2024 Instructions Essie Ryan NP - 09/30/2024 1:20 PM EDT Talk with dr who placed inspire device about the dizziness to see if this is common or not If worsening in severity or freq of dizziness let me know and I will refer to ortho documented in this encounter [facility] 09-27-2024 Note SLEEP CLINIC FOLLOW- UP EVALUATION Date of Evaluation: 09/27/24 Referring Physician: Dr. Yumiko Tapia Chief Complaints: NIRMALA on Inspire??? therapy. History of Presenting Illness and Interval History: Stacey Sahu is a 49 y.o. woman presenting to the sleep clinic for follow-up evaluation. She was last seen in the clinic on 03/06/2024. On that visit we made a referral to ENT for evaluation for Inspire??? therapy. Afterwards, she followed up with Dr. Rossi and underwent endoscopic diagnostic drug-induced sleep on May 09, 2024 which showed 100% anterior-posterior collapse at the level of soft palate and tongue base. Subsequently, she underwent implantation of Inspire??? generator on 08/22/2024. Since then, she has healed well, with no complications. She returns today for activation of the device. In the interim, otherwise her symptoms have stayed unchanged. She has had no changes in her medications. 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 therapy. She states [...] went to see Dr. Yumiko Tapia at [place] in 2023. She states that the her symptoms had worsened in the interim. She underwent another sleep study, which confirmed presence of obstructive sleep apnea. Sequently, she was again placed on CPAP, using a fullface mask, but gave up within 2 days due to significant claustrophobia and pressure intolerance. Afterwards, she wassuggested considering Inspire??? therapy, leading to referral to us. She states that she has gained weight due to being on psych medications over the years, but more recently, she has been stable. She has been on Abilify and since BuSpar since 2023. Sleep Schedule: Activities before bed: TV in the bed. Bed Time: 8:30-9 PM Sleep Latency: 1 hrs Nocturnal arousal: 3-4 times to use [...] Currently taking Current Medications Affecting Sleep: Abilify, buspirone and cetirizine. CPAP Details (Not using currently): Mask Type [...] Labs: Previous [employer] labs: NA [place] Sleepiness Scale: How likely are you to [...] for a few minutes in the traffic 1 Total score: 11 0 = would never doze 1 = slight chance of dozing 2 = moderate chance of dozing 3 = high chance of dozing Functional Outcomes of Sleep Questionnaire Some people have difficulty performing everyday activities when they feel tired or sleepy. The purpose of this questionnaire is to find out if you generally have difficulty carrying out certain (more content not included)... [facility] 09-06-2024 History of Presen t illness Narrative [facility] [address] [place] [id number] SUBJECTIVE: Patient ID (1975): Stacey Sahu is a 49 y.o. female presents today for Chief Complaint Patient presents with Post-op HPI: Stacey Sahu presents to clinic for a post op visit following Inspire hypoglossal nerve stimulator implantation performed on 08/22/2024. Today she reports she is doing well with no new ENT related concerns. She is established with Dr. Eduardo of sleep medicine. HISTORY: Past Medical History: Diagnosis Date Anxiety Arthritis Bipolar disorder ([facility]) Crohn's colitis ([facility]) Depression GERD (gastroesophageal reflux disease) H/O methicillin resistant Staphylococcus aureus infection Hyperlipidemia MRSA (methicillin resistant Staphylococcus aureus) 2022 nasal Obesity Pleurisy Pul[place] told many years ago Sleep apnea Visual impairment glasses Past Surgical History: Procedure Laterality Date COLECTOMY 2003 COLONOSCOPY several ENDOSCOPIC DIAGNOSTIC DRUG INDUCED SLEEP N/A 05/09/2024 Performed by Jeff Rossi MD at [facility] HYSTERECTOMY 2017 INJECTION BURSA LARGE JOINT Right Hip Right 09/01/2023 Performed by Pj Gannon MD at [facility] SPINE TRANSFORAMINAL Right L 5,1 Nroot Right 05/26/2023 Performed by Pj Gannon MD at [facility] INSERTION STIMULATOR NERVE HYPOGLOSSAL - Inspire N/A 08/22/2024 Performed by Jeff Rossi MD at [facility] RELEASE DEQUERVAINS CONTRACTURE Right 10/17/2018 Performed by Dereck Bagley DO at [facility] THYROID SURGERY 12/2022 nodule removed and lymph node biopsy TONSILLECTOMY as a child TOTAL HIP ARTHROPLASTY Right 07/01/2024 [facility] TUBAL LIGATION 2001 ablation done at same time Family History Problem Relation Age of Onset No Known Problems Mother No Known Problems Father No Known Problems Sister No Known Problems Brother No Known Problems Maternal Aunt No Known Problems Maternal Uncle No Known Problems Paternal Aunt No Known Problems Paternal Uncle No Known Problems Maternal Grandmother No Known Problems Maternal Grandfather No Known Problems Paternal Grandmother No Known Problems Paternal Grandfather No Known Problems Cousin ADD / ADHD Neg Hx Alcohol abuse Neg Hx Anxiety disorder Neg Hx Bipolar disorder Neg Hx Dementia Neg Hx Depression Neg Hx Drug abuse Neg Hx OCD Neg Hx Paranoid behavior Neg Hx Schizophrenia Neg Hx Seizures Neg Hx Self-Injurious Behavior Neg Hx Suicide Attempts Neg Hx Anesthesia problems Neg Hx Social History Socioeconomic History Marital status: Spouse name: Not on file Number of children: Not on file Years of education: Not on file Highest education level: Not on file Occupational History Not on file Tobacco Use Smoking status: Never Passive exposure: Never Smokeless tobacco: Never Vaping Use Vaping status: Never Used Substance and Sexual Activity Alcohol use: No Drug use: No Sexual activity: Defer Other Topics Concern Not on file Social History Narrative Not on file Social Drivers of Health Financial Resource Strain: Low Risk (08/28/2024) Received from [facility] Overall Financial Resource Strain (CARDIA) Difficulty of Paying Living Expenses: Not very hard Food Insecurity: No Food Insecurity (08/28/2024) Received from [facility] Hunger Vital Sign Worried About Running Out of Food in the Last Year: Never true Ran Out of Food in the Last Year: Never true Transportation Needs: No Transportation Needs (08/28/2024) Received from [facility] PRAPARE - Transportation Lack of Transportation (Medical): No Lack of Transportation (Non-Medical): No Physical Activity: Inactive (08/28/2024) Received from [facility] Exercise Vital Sign Days of Exercise per Week: 0 days Minutes of Exercise per Session: 0 min Stress: No Stress Concern Present (08/28/2024) Received from [facility] [employer] - Occupational Stress Questionnaire Feeling of Stress : Only a little Social Connections: Socially Isolated (08/28/2024) Received from [facility] Social Connection and Isolation Panel [NHANES] Frequency of Communication with Friends and Family: Once a week Frequency of Social Gatherings with Friends and Family: Once a week Attends Hindu Services: Never Active Member of Clubs or Organizations: No Attends Club or Organization Meetings: Never Marital Status: Interpersonal Safety: Unknown (08/17/2023) Re[facility] from [facility] [place] Safety & Environment Fear of Current or Ex-Partner: Not on file Emotionally Abused: Not on file Physically Abused: Not on file Sexually Abused: Not on file Physically or Sexually Abused: Not on file Housing Instability: Low Risk (08/28/2024) Received from [facility] Housing Stability Vital Sign Unable to Pay for Housing in the Last Year: No Number of Times Moved in the Last Year: 0 Homeless in the Last Year: No Allergies Allergen Reactions Penicillins Fever As a child Current Outpatient Medications Medication Sig Dispense Refill ARIPiprazole (ABILIFY) 30 mg tablet Take 1 tablet (30 mg total) by mouth nightly Indications: additional treatment for major depressive disorder. atorvastatin (LIPITOR) 10 mg tablet Take 1 tablet (10 mg total) by mouth nightly Indications: high cholesterol. busPIRone (BUSPAR) 15 mg tablet Take 0.5 tablets (7.5 mg total) by mouth as needed (anxiety) Indications: repeated episodes of anxiety. cetirizine (ZyrTEC) 5 mg tablet Take 1 tablet (5 mg total) by mouth as needed for allergies. meloxicam (MOBIC) 15 mg tablet take 1 tablet by mouth every morning 30 tablet 1 omeprazole (PriLOSEC) 40 mg capsule Take 1 capsule (40 mg total) by mouth nightly Indications: gastroesophageal reflux disease. GERD Verified [facility] No current facility-administered medications for this visit. REVIEW OF SYSTEMS: Review of Systems Constitutional: Negative for chills and fever. HENT: Negative for sore throat, trouble swallowing and voice change. Eyes: Negative for redness. Respiratory: Negative for cough and shortness of breath. Gastrointestinal: Negative for vomiting. Endocrine: Negative for heat intolerance. Musculoskeletal: Negative for neck pain and neck stiffness. Allergic/Immunologic: Negative for food allergies. Neurological: Negative for dizziness and headaches. Hematological: Does not bruise/bleed easily. Data Reviewed: PHYSICAL EXAMINATION: Temp 36.2 C (97.2 F) Ht 152.4 cm (5') Wt 86.7 kg (191 lb 3.2 oz) BMI 37.34 kg/m Constitutional: Healthy, alert, cooperative, and in no distress and normal ablility to communicate . Voice normal quality. Head/Face: Normocephalic, without obvious abnormality, salivary glands normal, atraumatic, sinuses nontender, and facial nerve intact Eyes: No gross abnormalities., EOMI, no nystagmus, and no lid ptosis Neck:normal, supple, no adenopathy, thyroid normal in size, no nodules or tenderness, no neck masses palpable, carotids normal, and well- healed surgical incision line right neck Heart: Regular rate Respiration: No stridor, Normal respiratory effort. Neurologic: Grossly normal Alert Oriented X 3 Affect normal Cranial nerves 2 -12 grossly intact CHEST: Well- healed surgical incision line right upper chest ASSESSMENT/PLAN: Stacey was seen today for post-op. Diagnoses and all orders for this visit: Obstructive sleep apnea Stacey Sahu was counseled that upon examination I appreciated well healed surgical incision lines on the right neck and right upper chest. At this time I recommend that the patient continue to follow up with Dr. Eduardo. Patient is in agreement with the treatment plan and will follow up with me as needed. Scribe Statement: Scribed for and in the presence of Jeff Rossi MD by Varinder Jose ([email or web address]). Varinder Jose 09/06/2024 8:40 AM Provider Statement: I Jeff Rossi MD personally performed the services described in the documentation as described by the above named scribe in my presence. It is both accurate and complete at the time of final signature. Dr. Jeff Rossi 09/06/2024 8:17 PM Please note that parts of this chart were generated using voice recognition [employer] dictation software. Although every effort was made to ensure the accuracy of this automated security operations analyst, some errors in security operations analyst may have occurred. Varinder Munozbob 09/06/24 0748 Jordana Kidd CNA 09/06/24 0826 Varinder Jose 09/06/24 0840 documented in this encounter [employer] [facility] 09-06-2024 Instructions Varinder Munozbob - 09/06/2024 8:15 AM EDT Images from the original note were not included. Based on today's evaluation, I recommend: No further tests or treatment at this time. I recommend that you follow up with me: as needed. I recommend that you sign up for [...] test result within 7 days, please call [phone] to leave a request for your results. [...] Ultrasound, MRI or PET scan, please call [facility] Central Scheduling at [phone]. If you need to be scheduled for surgery, please call Shaila Savage, Surgery Coordinator at [phone], or our main number [phone] if you have not received a return [...] (and medications that contain aspirin): Many non-prescription (tuyu-dzc-qykvfqg or OTC) medications contain aspirin. If you are unsure whether a medication you take has aspirin, please ask your pharmacist or your surgeon's office. You must ask your surgical team if they want you to continue taking, or stop taking aspirin before your procedure. Medications containing aspirin that should be stopped 7 days before surgery: Saritha-[place] Anacin Aspirin Fiorinal Ascriptin Pamela Bufferin Lortab [...] L-carnosine Licorice Kava kava Milk thistle Multivitamin Oracle-3 Resveratrol Skullcap [place]'s wort Vitamin E Adipex (phentermine) Jacob (orlistat) Hydroxycut Garcinia Cambogia Raspberry Ketones [id number] should be stopped 14 days before surgery You will receive specific instructions regarding your insulin and anti-coagulant/anti-platelet medications (if applicable). -- documented in this encounter [facility] 08-28-2024 History of Presen t illness Narrative [...] right Allergic rhinitis Anxiety 07/25/2023 Bipolar disorder ([facility]) Chest pain 02/09/2012 Chronic GERD Chronic rhinitis 2023 Constipation COVID-19 01/2022 Crohn's disease ([facility]) De Quervain's tenosynovitis, right Dyspnea on exertion Edema of extremities Elevated serum glucose Enlarged thyroid ([facility]) Flank pain 11/08/2022 Gross hematuria 11/08/2022 History [...] No rash. Comments: Incision from inspire w noami stips , +ecchymosis, but no s/s infection Neurological: [...] both small and large intestine without complications ([facility]) Continue to follow with GI Gastro-esophageal reflux [...] inspire placement recenlty PAH (pulmonary artery hypertension) ([facility]) Saw cardiology in the past, was on letaris, no longer taking it or fu with cardiology Non compliant with PAP, looking into inspire No chest pain/pressure/dyspnea Breast cancer screening Relevant Orders Bilateral screening mammogram Anxiety - Primary Buspar FLOR 7=6 Relevant Medications busPIRone (Buspar) 15 MG tablet Hyperlipidemia ([facility]) Relevant Medications atorvastatin (Lipitor) 80 MG tablet Other Relevant Orders Lipid panel Body mass index (BMI) 38.0-38.9, adult Morbid (severe) obesity due to excess calories ([facility]) Discussed with patient their BMI (actual, verses recommended). We have also discussed lifestyle modifications: attempts to perform physical activity as chronic conditions allow, also to monitor dietary intake: increasing protein/fruits/veggies and lowering carb intake (unless contraindicated). Limit sodas, juices, and sugary drinks.. Bipolar disorder, unspecified (CMS/HCC) Used to see psych, does not want to continue with them Current meds: earllifparveen garciapar PHQ 9=9 FLOR 7=6 Relevant Medications ARIPiprazole [...] inspire placement recenlty documented in this encounter [facility] 08-28-2024 Instructions Essie Ryan NP - 08/28/2024 1:20 PM EST No medication dose changes Get labs checked-they are fasting, but make sure you drink plenty of water before going documented in this encounter [facility] 07-30-2024 Note HNO ID: [id number] Author: LOIS MCKEON MD Service: ? Author [...] she seeks an appointment. Lois Mckeon MD [facility] 07-30-2024 History of Presen t illness [...] Lois Mckeon MD documented in this encounter [facility] 07-30-2024 History of Presen t illness [...] PATIENT PRESENTS WITH AN IMPLANTABLE OR ATTACHED TASSEL CLIPPER: No RADIOLOGY DEPARTMENT: General X-ray: Exam(s) Completed: Pelvis X-Ray: Pelvis with Hip Right and Wt. Bearing PERIPHERAL IV DATA: Not applicable SIGNED BY: MAMTA Carbjaal July 30, 2024 1:34 PM documented in this encounter [facility] 07-30-2024 Note HNO ID: [id number] Author: LETTY ONTIVEROS CT Service: Radiology Author [...] PATIENT PRESENTS WITH AN IMPLANTABLE OR ATTACHED TASSEL CLIPPER: No RADIOLOGY DEPARTMENT: General X-ray: Exam(s) Completed: Pelvis X-Ray: Pelvis with Hip Right and Wt. Bearing PERIPHERAL IV DATA: Not applicable SIGNED BY: MAMTA Carbajal July 30, 2024 1:34 PM [facility] 07-29-2024 Miscellaneous Notes Pre-Cert - Vivian Almanzar - Called and told me Emmas surgery is not covered under her new [employer] health insurance. Vivian said she would call Stacey and give her the update to see what she wants to do. [facility] 07-29-2024 Telephone encounter Note Pre-Cert - Vivian Mason - Called and told me Emmas surgery is not covered under her new [employer] health insurance. Vivian said she would call Stacey and give her the update to see what she wants to do. [facility] 07-26-2024 Miscellaneous Notes Summary: 08/01/24 [facility] Parent / Self notified of surgery time, 11:30 told them to arrive two hours prior. 09:30 emergency room entrance. Thank you! Alexy - [phone] documented in this encounter [facility] 07-26-2024 Telephone encounter Note Summary: 08/01/24 [facility] Parent / Self notified of surgery time, 11:30 told them to arrive two hours prior. 09:30 emergency room entrance. Thank you! Shaila - [phone] [facility] 07-23-2024 History and physical note PRE-ADMISSION TESTING HISTORY AND PHYSICAL EXAM DATE: 07/23/24 PCP: ADELA SMITH HISTORY OF PRESENT ILLNESS: Stacey Sahu, a 49 y.o. White or female, presents to [facility] for a pre-surgical H&P. The patient has been diagnosed with Obstructive sleep apnea [G47.33] . Patient has tried multiple types of masks without being able to tolerate the machine. Patient had an endoscopic diagnostic drug-induced sleep on May 09, 2024 which showed Endoscopic visualization demonstrated 100% anterior-posterior collapse from the soft palate to the posterior pharyngeal wall and 0% lateral collapse during inspiration in the velopharygeal region. There was no evidence of complete concentric collapse. Once this was completed, the endoscope was advanced into the oropharynx, which permitted visualization of the base of tongue region. Endoscopic visualization of the base of tongue region during inspiration demonstrated nearly 100% anteroposterior collapse and 0% lateral collapse. Patient denies any recent illness, fever, or cough. Anesthesia problems: denies. Latex allergy: denies. Bleeding/ clotting disorders: denies. Recent hospitalizations: denies. PAST MEDICAL HISTORY: Past Medical History: Diagnosis Date Anxiety Arthritis Bipolar disorder ([facility]) Crohn's colitis [place] Depression GERD (gastroesophageal reflux disease) H/O methicillin resistant Staphylococcus aureus infection Hyperlipidemia MRSA (methicillin resistant Staphylococcus aureus) 2022 nasal Obesity Pleurisy Pulmonary hypertension ([facility]) told many years ago Sleep apnea Visual impairment glasses PAST SURGICAL HISTORY: Past Surgical History: Procedure Laterality Date COLECTOMY 2002 COLONOSCOPY several ENDOSCOPIC DIAGNOSTIC DRUG INDUCED SLEEP N/A 05/09/2024 Performed by Jeff Rossi MD at [facility] HYSTERECTOMY 2017 INJECTION BURSA LARGE JOINT Right Hip Right 09/01/2023 Performed by Pj Gannon MD at [facility] SPINE TRANSFORAMINAL Right L 5,1 Nroot Right 05/26/2023 Performed by Pj Gannon MD at [facility] RELEASE DEQUERVAINS CONTRACTURE Right 10/17/2018 Performed by Dereck Bagley DO at [facility] THYROID SURGERY 12/2022 nodule removed and lymph node biopsy TONSILLECTOMY as a child TOTAL HIP ARTHROPLASTY Right 07/01/2024 [facility] TUBAL LIGATION 2001 ablation done at same time FAMILY HISTORY: Family History Problem Relation Age of Onset No Known Problems Mother No Known Problems Father No Known Problems Sister No Known Problems Brother No Known Problems Maternal Aunt No Known Problems Maternal Uncle No Known Problems Paternal Aunt No Known Problems Paternal Uncle No Known Problems Maternal Grandmother No Known Problems Maternal Grandfather No Known Problems Paternal Grandmother No Known Problems Paternal Grandfather No Known Problems Cousin ADD / ADHD Neg Hx Alcohol abuse Neg Hx Anxiety disorder Neg Hx Bipolar disorder Neg Hx Dementia Neg Hx Depression Neg Hx Drug abuse Neg Hx OCD Neg Hx Paranoid behavior Neg Hx Schizophrenia Neg Hx Seizures Neg Hx Self-Injurious Behavior Neg Hx Suicide Attempts Neg Hx Anesthesia problems Neg Hx SOCIAL HISTORY: The patient reports no history of alcohol use. She reports that she has never smoked. She has never been exposed to tobacco smoke. She has never used smokeless tobacco. She reports no history of drug use. ALLERGIES: Allergies Allergen Reactions Penicillins Fever As a child MEDICATIONS: Current Outpatient Medications: ARIPiprazole (ABILIFY) 30 mg tablet, Take 1 tablet (30 mg total) by mouth nightly Indications: additional treatment for major depressive disorder., Disp: , Rfl: atorvastatin (LIPITOR) 10 mg tablet, Take 1 tablet (10 mg total) by mouth nightly Indications: high cholesterol., Disp: , Rfl: busPIRone (BUSPAR) 15 mg tablet, Take 0.5 tablets (7.5 mg total) by mouth as needed (anxiety) Indications: repeated episodes of anxiety., Disp: , Rfl: meloxicam (MOBIC) 15 mg tablet, take 1 tablet by mouth every morning (Patient taking differently: Take 1 tablet (15 mg total) by mouth in the morning.), Disp: 30 tablet, Rfl: 1 omeprazole (PriLOSEC) 40 mg capsule, Take 1 capsule (40 mg total) by mouth nightly Indications: gastroesophageal reflux disease. [facility]ERD [facility], Disp: , Rfl: cetirizine (ZyrTEC) 5 mg tablet, Take 1 tablet (5 mg total) by mouth as needed for allergies. (Patient not taking: Reported on 07/23/2024), Disp: , Rfl: REVIEW OF SYSTEMS: Review of Systems Constitutional: Negative. HENT: Negative. Eyes: Glasses Respiratory: Positive for apnea. Cardiovascular: Hyperlipidemia Gastrointestinal: Crohn's, GERD, obesity Endocrine: Negative. Genitourinary: Negative. Musculoskeletal: Recent right hip replacement-incision healing Skin: Negative. Allergic/Immunologic: Negative. Neurological: Negative. Hematological: Negative. Psychiatric/Behavioral: Anxiety, depression, bipolar VITAL SIGNS: BP 118/70 Pulse 93 Temp 36.6 C (97.8 F) (Temporal) Resp 16 Ht 152.4 cm (5') Wt 88.4 kg (194 lb 14.2 oz) SpO2 99% BMI 38.06 kg/m PHYSICAL EXAM: Physical Exam Constitutional: Appearance: Normal appearance. HENT: Head: Normocephalic and atraumatic. Nose: Nose normal. Mouth/Throat: Mouth: Mucous membranes are moist. Pharynx: Oropharynx is clear. Eyes: Extraocular Movements: Extraocular movements intact. Conjunctiva/sclera: Conjunctivae normal. Pupils: Pupils are equal, round, and reactive to light. Cardiovascular: Rate and Rhythm: Normal rate and regular rhythm. Heart sounds: Normal heart sounds. Pulmonary: Effort: [...] and oriented to person, place, and time. PERTINENT TESTING AVAILABLE IN [facility] (WITHIN THE PAST 2 YEARS): EK10/03/2018 Echo: No results found. Stress test: No results found. Holter: No results found. Cardiac catheterization: No results found. Carotids: No results found. Pulmonary function testing: No results found. RECENT LABS: Lab Results Component Value Date WBC 6.5 08/18/2017 HGB 12.0 08/18/2017 HCT 35.5 08/18/2017 PLT 195 08/18/2017 SODIUM 141 10/03/2018 K 3.9 10/03/2018 CL 103 10/03/2018 CO2 30 10/03/2018 CALCIUM 9.3 10/03/2018 ALKPHOS 42 08/18/2017 ALBUMIN 3.4 08/18/2017 GLU 132 (H) 10/03/2018 ALT 13 08/18/2017 AST 15 08/18/2017 CREATININE 0.83 10/03/2018 BUN 11 10/03/2018 GFR >60 10/03/2018 GFR >60 10/03/2018 *Please note that labs listed above are the most recent lab values available in [facility] at the time the H&P was signed. ASSESSMENT / DIAGNOSIS: Obstructive sleep apnea [G47.33] PLAN: Stacey Sahu is scheduled for Insertion Stimulator Nerve Hypoglossal - Inspire on 08/01/[address] Rossi. ADELA Martinez 07/23/24 1536 [employer] Work Phone: 07-23-2024 History and physical note PRE-ADMISSION TESTING HISTORY AND PHYSICAL EXAM DATE: 07/23/24 PCP: ADELA SMITH HISTORY OF PRESENT ILLNESS: Stacey Sahu, a 49 y.o. White or female, presents to [facility] for a pre-surgical H&P. The patient has been diagnosed with Obstructive sleep apnea [G47.33] . Patient has tried multiple types of masks without being able to tolerate the machine. Patient had an endoscopic diagnostic drug-induced sleep on May 09, 2024 which showed Endoscopic visualization demonstrated 100% anterior-posterior collapse from the soft palate to the posterior pharyngeal wall and 0% lateral collapse during inspiration in the velopharygeal region. There was no evidence of complete concentric collapse. Once this was completed, the endoscope was advanced into the oropharynx, which permitted visualization of the base of tongue region. Endoscopic visualization of the base of tongue region during inspiration demonstrated nearly 100% anteroposterior collapse and 0% lateral collapse. Patient denies any recent illness, fever, or cough. Anesthesia problems: denies. Latex allergy: denies. Bleeding/ clotting disorders: denies. Recent hospitalizations: denies. PAST MEDICAL HISTORY: Past Medical History: Diagnosis Date Anxiety Arthritis Bipolar disorder [place] Crohn's colitis ([facility]) Depression GERD (gastroesophageal reflux disease) H/O methicillin resistant Staphylococcus aureus infection Hyperlipidemia MRSA (methicillin resistant Staphylococcus aureus) 2022 nasal Obesity Pleurisy Pulmonary hypertension ([facility] told many years ago Sleep apnea Visual impairment glasses PAST SURGICAL HISTORY: Past Surgical History: Procedure Laterality Date COLECTOMY 2002 COLONOSCOPY several ENDOSCOPIC DIAGNOSTIC DRUG INDUCED SLEEP N/A 05/09/2024 Performed by Jeff Rossi MD at [facility] HYSTERECTOMY 2017 INJECTION BURSA LARGE JOINT Right Hip Right 09/01/2023 Performed by Pj Gannon MD at [facility] SPINE TRANSFORAMINAL Right L 5,1 Nroot Right 05/26/2023 Performed by Pj Gannon MD at [facility] RE[facility] DEQUERVAINS CONTRACTURE Right 10/17/2018 Performed by Dereck Bagley DO at [facility] THYROID SURGERY 12/2022 nodule removed and lymph node biopsy TONSILLECTOMY as a child TOTAL HIP ARTHROPLASTY Right 07/01/2024 [facility] TUBAL LIGATION 2002 ablation done at same time FAMILY HISTORY: Family History Problem Relation Age of Onset No Known Problems Mother No Known Problems Father No Known Problems Sister No Known Problems Brother No Known Problems Maternal Aunt No Known Problems Maternal Uncle No Known Problems Paternal Aunt No Known Problems Paternal Uncle No Known Problems Maternal Grandmother No Known Problems Maternal Grandfather No Known Problems Paternal Grandmother No Known Problems Paternal Grandfather No Known Problems Cousin ADD / ADHD Neg Hx Alcohol abuse Neg Hx Anxiety disorder Neg Hx Bipolar disorder Neg Hx Dementia Neg Hx Depression Neg Hx Drug abuse Neg Hx OCD Neg Hx Paranoid behavior Neg Hx Schizophrenia Neg Hx Seizures Neg Hx Self-Injurious Behavior Neg Hx Suicide Attempts Neg Hx Anesthesia problems Neg Hx SOCIAL HISTORY: The patient reports no history of alcohol use. She reports that she has never smoked. She has never been exposed to tobacco smoke. She has never used smokeless tobacco. She reports no history of drug use. ALLERGIES: Allergies Allergen Reactions Penicillins Fever As a child MEDICATIONS: Current Outpatient Medications: ARIPiprazole (ABILIFY) 30 mg tablet, Take 1 tablet (30 mg total) by mouth nightly Indications: additional treatment for major depressive disorder., Disp: , Rfl: atorvastatin (LIPITOR) 10 mg tablet, Take 1 tablet (10 mg total) by mouth nightly Indications: high cholesterol., Disp: , Rfl: busPIRone (BUSPAR) 15 mg tablet, Take 0.5 tablets (7.5 mg total) by mouth as needed (anxiety) Indications: repeated episodes of anxiety., Disp: , Rfl: meloxicam (MOBIC) 15 mg tablet, take 1 tablet by mouth every morning (Patient taking differently: Take 1 tablet (15 mg total) by mouth in the morning.), Disp: 30 tablet, Rfl: 1 omeprazole (PriLOSEC) 40 mg capsule, Take 1 capsule (40 mg total) by mouth nightly Indications: gastroesophageal reflux disease. GERD [facility], Disp: , Rfl: cetirizine (ZyrTEC) 5 mg tablet, Take 1 tablet (5 mg total) by mouth as needed for allergies. (Patient not taking: Reported on 07/23/2024), Disp: , Rfl: REVIEW OF SYSTEMS: Review of Systems Constitutional: Negative. HENT: Negative. Eyes: Glasses Respiratory: Positive for apnea. Cardiovascular: Hyperlipidemia Gastrointestinal: Crohn's, GERD, obesity Endocrine: Negative. Genitourinary: Negative. Musculoskeletal: Recent right hip replacement-incision healing Skin: Negative. Allergic/Immunologic: Negative. Neurological: Negative. Hematological: Negative. Psychiatric/Behavioral: Anxiety, depression, bipolar VITAL SIGNS: BP 118/70 Pulse 93 Temp 36.6 C (97.8 F) (Temporal) Resp 16 Ht 152.4 cm (5') Wt 88.4 kg (194 lb 14.2 oz) SpO2 99% BMI 38.06 kg/m PHYSICAL EXAM: Physical Exam Constitutional: Appearance: Normal appearance. HENT: Head: Normocephalic and atraumatic. Nose: Nose normal. Mouth/Throat: Mouth: Mucous membranes are moist. Pharynx: Oropharynx is clear. Eyes: Extraocular Movements: Extraocular movements intact. Conjunctiva/sclera: Conjunctivae normal. Pupils: Pupils are equal, round, and reactive to light. Cardiovascular: Rate and Rhythm: Normal rate and regular rhythm. Heart sounds: Normal heart sounds. Pulmonary: Effort: [...] and oriented to person, place, and time. PERTINENT TESTING AVAILABLE IN [facility] (WITHIN THE PAST 2 YEARS): EK10/03/2018 Echo: No results found. Stress test: No results found. Holter: No results found. Cardiac catheterization: No results found. Carotids: No results found. Pulmonary function testing: No results found. RECENT LABS: Lab Results Component Value Date WBC 6.5 08/18/2017 HGB 12.0 08/18/2017 HCT 35.5 08/18/2017 PLT 195 08/18/2017 SODIUM 141 10/03/2018 K 3.9 10/03/2018 CL 103 10/03/2018 CO2 30 10/03/2018 CALCIUM 9.3 10/03/2018 ALKPHOS 42 08/18/2017 ALBUMIN 3.4 08/18/2017 GLU 132 (H) 10/03/2018 ALT 13 08/18/2017 AST 15 08/18/2017 CREATININE 0.83 10/03/2018 BUN 11 10/03/2018 GFR >60 10/03/2018 GFR >60 10/03/2018 *Please note that labs listed above are the most recent lab values available in [facility] at the time the H&P was signed. ASSESSMENT / DIAGNOSIS: Obstructive sleep apnea [G47.33] PLAN: Stacey Sahu is scheduled for Insertion Stimulator Nerve Hypoglossal - Inspire on 08/01/[address] Rossi. ADELA Martinez 07/23/24 1536 documented in this encounter [facility] 07-23-2024 Instructions Rashida Mcneil RN - 07/23/2024 2:15 PM EST Your surgery/procedure is scheduled at [facility] on 08/01/24 at to call with arrival time [facility] Address: [address] [place] [address], [facility], [address] [place] [address] in the Emergency Center Parking lot. Report to the front office administrator in the Emergency/Surgery Registration lobby of the hospital. Notify your SURGEON if you develop any illness such as a cold, cough, fever, sore throat, vomiting or are hospitalized between now and your surgery. Please call Pre-Admission Clinic at [phone] if you have any questions prior to surgery. For questions the morning of surgery, call the Pre-op Department at [phone]. Medication Instructions (Do not stop your medications without consulting the prescribing physician). Take the following medications the morning of surgery with a sip of water: NONE Diabetic or Weight loss medications: HOLD n/a LAST DOSE n/a Take inhalers as prescribed the morning of [...] surgery unless otherwise directed by your surgeon. INCLUDES MOBIC Vitamins/Herbal Products: You may continue to take [...] would like to schedule therapy at a [facility] facility, please call [phone] ([phone]). Do not use lotions, creams, powders, perfume, make up, cologne or after-shaves day of surgery. Remove ALL jewelry including wedding rings, body piercings, hair extensions that contain metal, nail surinamese, make-up, and contact lens. You may brush your teeth the morning of surgery, but do not swallow the water. Wear your dentures and partial plates to the hospital (no adhesive). Shower the night the before. If applicable, use the CHG (chlorhexidine gluconate) soap or wipes. Please be advised, [facility] has transitioned to a cashless payment [...] RIGHTS AND RESPONSIBILITIES As a patient at [facility], you have the right to: Receive medical care and be informed of who is taking care of you Be treated with dignity and respect Have a family member/sales and marketing representative of choice and your physician notified of your admission Receive information and actively participate in decisions about your care and treatment Refuse care, treatment and services Decide who may provide your support and speak for you Access jainism and spiritual services Participate in ethical issues [...] of hospital charges and payment methods Patient/patient sales and marketing representative responsibilities are to: Provide information about health status to facilitate care, treatment and services Follow the treatment, plan, keep appointments and speak up when you do not understand the plan Respect the rights of other patients and healthcare personnel Follow organizational rules and regulations that support quality care and a safe environment Fulfill financial obligations as promptly as possible Bathing Before Surgery- Patients greater than 2 months of age You can help to lower your chance of infection at the site of your surgery by showering or bathing with a special soap called chlorhexidine gluconate (CHG). Germs live on your skin. This special soap will help lower the amount of germs so they do not get into your surgery site. Special points to know: Do not use this soap if you know that you are allergic to CHG. Shower or bathe with CHG the night before and the morning of surgery. Do not shave the area of your body where the surgery will be done within 7 days of surgery. The CHG may make your skin a little dry, but do not use lotion. Steps for Bathing: Wash your hair as usual with your normal shampoo. Rinse your hair and body well after you shampoo to get rid all of the shampoo. Wash gently with the CHG from the neck down, but do not scrub the skin to hard. Be sure to wash the area of your surgery very well. If showering, turn the water off while washing and then turn the water back onto rinse. Do not get CHG in the genital (private) area. Do not get CHG in the eyes, ears, nose or mouth. (If the soap gets into the eyes, flush them immediately with water). Do not wash with regular soap after CHG is used. Pat skin dry with a soft, clean towel. Patient should sleep in freshly laundered night clothes and report for surgery in clean clothes. documented in this encounter [facility] 07-01-2024 Note HNO ID: [id number] Author: DANA HOWE MD Service: Anesthesiology Author [...] July 01, 2024 TIME: 8:07 AM CSN: [id number] [facility] [place] 06-05-2024 History and physical note Images from the original note were not included. [facility] HISTORY AND PHYSICAL EXAMINATION SERVICE DATE: 06/05/2024 SERVICE TIME: 9:56 AM PRIMARY CARE PHYSICIAN: Essie Ryan CNP, MOTOR EQUIPMENT SERGEANT REASON FOR VISIT: Stacey Sahu is a [...] STOP-Bang Score: 0 (Non-compliant with CPAP ) [id number] Score: Age: <65 Sex: female [id number] Score: ARISCAT Score: Age: <=50 Preoperative SpO2: [...] x 4 Crohn's disease without complication (HCC) [id number] Pulmonary Htn (Hcc) Obese Nirmala (Obstructive Sleep [...] fevers. Neuro: No history of TIA's, stroke, SENIOR BI DEVELOPER tumor, impaired sensorium, hemiplegia, paraplegia or quadraplegia. [...] Stacey Sahu DATE: 06/05/2024 TIME: 9:56 AM [facility] 06-05-2024 History and physical note Images from the original note were not included. [facility] HISTORY AND PHYSICAL EXAMINATION SERVICE DATE: 06/05/2024 SERVICE TIME: 9:56 AM PRIMARY CARE PHYSICIAN: Essie Fely Aichholz, MOTOR EQUIPMENT SERGEANT, MOTOR EQUIPMENT SERGEANT REASON FOR VISIT: Stacey Sahu is a [...] STOP-Bang Score: 0 (Non-compliant with CPAP ) [id number] Score: Age: <65 Sex: female [id number] Score: ARISCAT Score: Age: <=50 Preoperative SpO2: [...] x 4 Crohn's disease without complication (HCC) [id number] Pulmonary Htn (Hcc) Obese Nirmala (Obstructive Sleep [...] fevers. Neuro: No history of TIA's, stroke, SENIOR BI DEVELOPER tumor, impaired sensorium, hemiplegia, paraplegia or quadraplegia. [...] TIME: 9:56 AM documented in this encounter [facility] 06-04-2024 Instructions Negrita Tejeda APRN.CNP - 06/04/2024 8:24 AM EST Images from the original note were not included. [facility] PATIENT PREOPERATIVE INSTRUCTIONS Lois Mckeon MD has scheduled you for your procedure at this surgery center: [facility] [place]: [phone] --[address] [place] [address]. On your scheduled day of surgery, please [...] office. If you are currently using a ksfh-knp-olto injectable or oral medication for diabetes or [...] Procedures: - YOU MUST HAVE A RESPONSIBLE FLOORHAND TAKE YOU HOME. A ENVIRONMENTAL PROJECTS ADVISOR OR SHAPER SET UP OPERATOR CANNOT BE MADE A RESPONSIBLE FLOORHAND. - We recommend that a responsible person [...] Advance Directive, please fax a copy to [phone] or email to for it to be [...] chart that day. documented in this encounter [facility] 05-29-2024 History of Presen t illness Narrative Images from the original note were not included. Stacey Sahu is a 48 y.o. female presents with chief complaint of Bipolar HPI: Since last visit has seen ENT and ortho Hip; right hip replacement scheduled for 07/01/24 through [facility]. No changes in hip sxs, average pain 5/10 NIRMALA: is going to have inspire procedure and is scheduled for 08/01/24 in [place] Mood/Anxiety: takes meds daily, no side effects. [...] specialist for this PAH (pulmonary artery hypertension) ([facility]) Saw cardiology in the past, was on [...] Morbid (severe) obesity due to excess calories ([facility]) Discussed with patient their BMI (actual, verses [...] specialist for this documented in this encounter [facility] 05-29-2024 Instructions Essie Ryan NP - 05/29/2024 2:20 PM EST No med dose changes documented in this encounter [facility] 05-17-2024 History of Presen t illness Narrative [facility] [address] [place] [address] [place] [id number] SUBJECTIVE: Patient ID (1975): Stacey Sahu is [...] History: Diagnosis Date Anxiety Arthritis Bipolar disorder ([facility]) Chronic pain disorder Crohn's colitis ([facility]) Depression GERD (gastroesophageal reflux disease) H/O methicillin resistant Staphylococcus aureus infection Hyperlipidemia Joint pain Obesity Pleurisy Pulmonary hypertension (CMS-HCC) Pulmonary hypertension (CMS-HCC) Sleep apnea cpap Past Surgical History: Procedure Laterality Date COLON SURGERY part of bowel removed d/t crohns dx COLONOSCOPY ENDOSCOPIC DIAGNOSTIC DRUG INDUCED SLEEP N/A 05/09/2024 Performed by Jeff Rossi MD at [facility] SURGERY HYSTERECTOMY 2017 INJECTION BURSA LARGE JOINT Right Hip Right 09/01/2023 Performed by Pj Gannon MD at [facility] SPINE TRANSFORAMINAL Right L 5,1 Nroot Right 05/26/2023 Performed by Pj Gannon MD at [facility] LYMPH NODE BIOPSY RELEASE DEQUERVAINS CONTRACTURE Right 10/17/2018 Performed by Dereck Bagley DO at [facility] THYROIDECTOMY, PARTIAL 12/2022 nodule TONSILLECTOMY as a [...] Resource Strain: Patient Declined (06/14/2023) Received from [facility] Overall Financial Resource Strain (CARDIA) Difficulty of Paying Living Expenses: Patient declined Food Insecurity: No Food Insecurity (05/06/2024) Hunger Screening Food Insecurity - Worry: Never True Food Insecurity - Inability: Never True Transportation Needs: No Transportation Needs (06/14/2023) Received from [facility] PRAPARE - Transportation Lack of Transportation (Medical): No Lack of Transportation (Non-Medical): No Physical Activity: Unknown (06/14/2023) Received from [facility] Exercise Vital Sign Days of Exercise per Week: 2 days Minutes of Exercise per Session: Patient declined Stress: Patient Declined (06/14/2023) Received from [facility] [employer] - Occupational Stress Questionnaire Feeling of Stress : Patient declined Social Connections: Unknown (06/14/2023) Received from [facility], [facility] Social Connection and Isolation Panel [NHANES] Frequency of Communication with Friends and Family: Patient declined Frequency of Social Gatherings with Friends and Family: Patient declined Attends Hindu Services: Patient declined Active Member of Clubs or Organizations: Patient declined Attends Club or Organization Meetings: Patient declined Marital Status: Interpersonal Safety: Unknown (08/17/2023) Received from [facility] Safety & Environment Fear of Current or Ex-Partner: Not on file Emotionally Abused: Not on file Physically Abused: Not on file Sexually Abused: Not on file Physically or Sexually Abused: Not on file Housing Instability: Unknown (06/14/2023) Received from [facility], [facility] Housing Stability Vital Sign Unable [...] of Jeff Rossi MD by Varinder Jose ([email or web address]). Varinder Jose 05/17/2024 8:18 AM Provider Statement: I Jeff Rossi MD personally performed the services described in the documentation as described by the above named scribe in my presence. It is both accurate and complete at the time of final signature. Dr. Jeff Rossi 05/17/2024 9:20 AM Please note that parts of this chart were generated using voice recognition M*Modal dictation software. Although every effort was made to ensure the accuracy of this automated security operations analyst, some errors in security operations analyst may have occurred. Varinder Minniear 05/17/24 0744 Varinder Minniear 05/17/24 0819 Varinder Minniear 05/17/24 0820 documented in this encounter [facility] 05-17-2024 Instructions Jeff Rossi MD - 05/17/2024 [...] test result within 7 days, please call [phone] to leave a request for your results. [...] Ultrasound, MRI or PET scan, please call [facility] Central Scheduling at [phone]. If you need to be scheduled for surgery, please call Ally Savage, Surgery Coordinator at [phone], or our main number [phone] if you have not received a return [...] (and medications that contain aspirin): Many non-prescription (prba-cae-wiekhkr or OTC) medications contain aspirin. If you are unsure whether a medication you take has aspirin, please ask your pharmacist or your surgeon's office. You must ask your surgical team if they want you to continue taking, or stop taking aspirin before your procedure. Medications containing aspirin that should be stopped 7 days before surgery: Saritha-[place] Anacin Aspirin Fiorinal Ascriptin Pamela Bufferin Lortab ASA Darvon Ecotrin Excedrin Percodan Midol Pepto-Bismol Antoinewin Examples of Non-Steroidal Anti-Inflammatory Drugs (NSAIDs) that [...] L-carnosine Licorice Kava kava Milk thistle Multivitamin Oracle-3 Resveratrol Skullcap [facility] Vitamin E Adipex (phentermine) Jacob (orlistat) Hydroxycut Garcinia Cambogia Raspberry Ketones [id number] should be stopped 14 days before surgery You will receive specific instructions regarding your insulin and anti-coagulant/anti-platelet medications (if applicable). -- documented in this encounter [facility] 05-09-2024 Telephone encounter Note PSS calling from Dr Rossi's office to ask how soon the PT could be scheduled for surgery for inspire implant, nerve stimulator. General for 3 hours. Please advise [phone] ask to speak with Alejandra or Kashmir. [facility] 05-09-2024 Miscellaneous Notes PSS calling from Dr Rossi's office to ask how soon the PT could be scheduled for surgery for inspire implant, nerve stimulator. General for 3 hours. Please advise [phone] ask to speak with Alejandra or Kashmir. documented in this encounter [facility] 05-09-2024 Miscellaneous Notes Surgery Scheduling Request 05/09/24 Patient: Stacey Sahu : 1975 Surgical Procedure(s): Inspire Anesthesia: General Surgery Time: 3 hours Facility Preference: No preference Post Op Destination: Outpatient Preop Anesthesia Appointment?: Yes Medical Clearance Required?: No Nerve Monitor? Yes Special Equipment? Inspire When should patient follow up after surgery? One week Additional Comments: Dwayne 05-09, Called patient to schedule Inspire Stacey priest mentioned she's having hip replacement Jul 01. I called her Ortho Surgeon at [facility], Dr Iwona Mckeon to ask about timeframe for being safe to have this surgery after her hip replacement recovery. Dr Iwona Mckeon nurse said she would call me back. documented in this encounter [facility] 05-09-2024 Telephone encounter Note Surgery Scheduling Request 05/09/24 Patient: Stacey Sahu : 1975 Surgical Procedure(s): Inspire Anesthesia: General Surgery Time: 3 hours Facility Preference: No preference Post Op Destination: Outpatient Preop Anesthesia Appointment?: Yes Medical Clearance Required?: No Nerve Monitor? Yes Special Equipment? Inspire When should patient follow up after surgery? One week Additional Comments: Dwayne [facility] Work Phone: 05-09-2024 Telephone encounter Note 05-09, Called patient to schedule Stacey Posadas mentioned she's having hip replacement Jul 01. I called her Ortho Surgeon at [facility], Dr Iwona Mckeon to ask about timeframe for being safe to have this surgery after her hip replacement recovery. Dr Iwona Mckeon nurse said she would call me back. [facility] 05-02-2024 Instructions Formatting of th is note might be different from the original. Your surgery/procedure is scheduled at [facility] on 05/09/2024 at 10:30 am Arrival Time 8:30 am [facility] Address: [address] [place] [address], [address] [place] [address] in the Emergency Center Parking lot. Report to the front office administrator in the Emergency/Surgery Registration lobby of the hospital. Notify your SURGEON if you develop any illness such as a cold, cough, fever, sore throat, vomiting or are hospitalized between now and your surgery. Please call Pre-Admission Clinic at [phone] if you have any questions prior to surgery. For questions the morning of surgery, call the Pre-op Department at [phone]. Medication Instructions (Do not stop your medications [...] weekly, hold 1 week prior to surgery: Cliveundevangro . Blood thinners: Please contact your prescribing [...] would like to schedule therapy at a [facility] facility, please call [phone] ([phone]). Do not use lotions, creams, powders, perfume, make up, cologne or after-shaves day of surgery. Remove ALL jewelry including wedding rings, body piercings, hair extensions that contain metal, nail surinamese, make-up, and contact lens. You may brush your teeth the morning of surgery, but do not swallow the water. Wear your dentures and partial plates to the hospital (no adhesive). Shower the night the before. If applicable, use the CHG (chlorhexidine gluconate) soap or wipes. Please be advised, [facility] has transitioned to a cashless payment [...] RIGHTS AND RESPONSIBILITIES As a patient at [facility], you have the right to: Receive medical care and be informed of who is taking care of you Be treated with dignity and respect Have a family member/sales and marketing representative of choice and your physician notified of your admission Receive information and actively participate in decisions about your care and treatment Refuse care, treatment and services Decide who may provide your support and speak for you Access jainism and spiritual services Participate in ethical issues [...] of hospital charges and payment methods Patient/patient sales and marketing representative responsibilities are to: Provide information about health status to facilitate care, treatment and services Follow the treatment, plan, keep appointments and speak up when you do not understand the plan Respect the rights of other patients and healthcare personnel Follow organizational rules and regulations that support quality care and a safe environment Fulfill financial obligations as promptly as possible [facility] 05-02-2024 Miscellaneous Notes Your surgery/procedure is scheduled at [facility] on 05/09/2024 at 10:30 am Arrival Time 8:30 am [facility] Address: [address] [place] [address], [address] [place] [address] in the Emergency Center Parking lot. Report to the front office administrator in the Emergency/Surgery Registration lobby of the hospital. Notify your SURGEON if you develop any illness such as a cold, cough, fever, sore throat, vomiting or are hospitalized between now and your surgery. Please call Pre-Admission Clinic at [phone] if you have any questions prior to surgery. For questions the morning of surgery, call the Pre-op Department at [phone]. Medication Instructions (Do not stop your medications [...] weekly, hold 1 week prior to surgery: Betty . Blood thinners: Please contact your prescribing [...] would like to schedule therapy at a [facility] facility, please call [phone] ([phone]). Do not use lotions, creams, powders, perfume, make up, cologne or after-shaves day of surgery. Remove ALL jewelry including wedding rings, body piercings, hair extensions that contain metal, nail surinamese, make-up, and contact lens. You may brush your teeth the morning of surgery, but do not swallow the water. Wear your dentures and partial plates to the hospital (no adhesive). Shower the night the before. If applicable, use the CHG (chlorhexidine gluconate) soap or wipes. Please be advised, [employer] [employer] has transitioned to a cashless payment system. [...] RIGHTS AND RESPONSIBILITIES As a patient at [facility], you have the right to: Receive medical care and be informed of who is taking care of you Be treated with dignity and respect Have a family member/sales and marketing representative of choice and your physician notified of your admission Receive information and actively participate in decisions about your care and treatment Refuse care, treatment and services Decide who may provide your support and speak for you Access jainism and spiritual services Participate in ethical issues [...] of hospital charges and payment methods Patient/patient sales and marketing representative responsibilities are to: Provide information about [...] promptly as possible [facility]24 Miscellaneous Notes Surgery Scheduling Request 04/19/24 Patient: Stacey Gonzalez Luis Alberto : 1975 Surgical Procedure(s): DISE Anesthesia: MAC Surgery Time: 30 min Facility Preference: No preference When should patient follow up after surgery? 1-2 weeks Left message to schedule surgery documented in this encounter [facility] 04-19-2024 Telephone encounter Note Surgery Scheduling Request 04/19/24 Patient: Stacey Sahu : 1975 Surgical Procedure(s): DISE Anesthesia: MAC Surgery Time: 30 min Facility Preference: No preference When should patient follow up after surgery? 1-2 [facility] 04-19-[facility]24 Telephone encounter Note Left message to schedule surgery [facility] History of Presen t illness Narrative Images from the original note were not included. [facility] [address] [place] [phone] SUBJECTIVE: Patient ID (1975): Stacey Sahu is [...] History: Diagnosis Date Anxiety Arthritis Bipolar disorder ([facility]) Chronic pain disorder Crohn's colitis ([facility]) Depression GERD (gastroesophageal reflux disease) H/O methicillin resistant Staphylococcus aureus infection Hyperlipidemia Joint pain Obesity Pleurisy Pulmonary hypertension (CMS-HCC) Pulmonary hypertension ([facility]) Sleep apnea cpap Past Surgical History: Procedure Laterality Date COLON SURGERY part of bowel removed d/t crohns dx COLONOSCOPY HYSTERECTOMY 2017 INJECTION BURSA LARGE JOINT Right Hip Right 09/01/2023 Performed by Pj Gannon MD at [facility] INJECTION SPINE TRANSFORAMINAL Right L 5,1 Nroot Right 05/26/2023 Performed by Pj Gannon MD at [facility] LYMPH NODE BIOPSY RELEASE DEQUERVAINS CONTRACTURE Right 10/17/2018 Performed by Dereck Bagley DO at [facility] THYROIDECTOMY, PARTIAL TONSILLECTOMY TUBAL LIGATION Family [...] Resource Strain: Patient Declined (06/14/2023) Received from [facility] Financial Resource Strain (CARDIA) Difficulty of Paying Living Expenses: Patient declined Food Insecurity: No Food Insecurity (09/12/2023) Hunger Screening Food Insecurity - Worry: Never True Food Insecurity - Inability: Never True Transportation Needs: No Transportation Needs (06/14/2023) Received from [facility] PRAPARE - Transportation Lack of Transportation (Medical): No Lack of Transportation (Non-Medical): No Physical Activity: Unknown (06/14/2023) Received from [facility] Exercise Vital Sign Days of Exercise per Week: 2 days Minutes of Exercise per Session: Patient declined Stress: Patient Declined (06/14/2023) Received from [facility] [employer] - Occupational Stress Questionnaire Feeling of Stress : Patient declined Social Connections: Unknown (06/14/2023) Received from [facility] Social Connection and Isolation Panel [NHANES] Frequency of Communication with Friends and Family: Patient declined Frequency of Social Gatherings with Friends and Family: Patient declined Attends Hindu Services: Patient declined Active Member of Clubs or Organizations: Patient declined Attends Club or Organization Meetings: Patient declined Marital Status: Interpersonal Safety: Unknown (08/17/2023) Received from [facility] [place] Safety & Environment Fear of Current or Ex-Partner: Not on file Emotionally Abused: Not on file Physically Abused: Not on file Sexually Abused: Not on file Physically or Sexually Abused: Not on file Housing Instability: Unknown (06/14/2023) Received from [facility] Housing Stability Vital Sign Unable to Pay [...] surgery using the Airlift system for NIRMALA ([employer]- https://www.InNetwork.Therapeutic Systems/ ). Stacey Sahu was counseled about the [...] this chart were generated using voice recognition [employer] dictation software. Although every effort was made to ensure the accuracy of this automated security operations analyst, some errors in security operations analyst may have occurred. Varinder Jose 04/19/24 0747 Varinder Minnimayur 04/19/24 0909 Varinder Minnimayur 04/19/24 0910 Varinder Minbob 04/19/24 0917 documented in this encounter [facility] 04-19-2024 Instructions Jeff Rossi MD - 04/19/2024 [...] test result within 7 days, please call [phone] to leave a request for your results. [...] Ultrasound, MRI or PET scan, please call [facility] Central Scheduling at [phone]. If you need to be scheduled for surgery, please call Kashmir Florian Surgery Coordinator at [phone], or Negrita at [phone] or our main number [phone] if you have not received a return [...] (and medications that contain aspirin): Many non-prescription (fvrl-xqp-hvahtix or OTC) medications contain aspirin. If you are unsure whether a medication you take has aspirin, please ask your pharmacist or your surgeon's office. You must ask your surgical team if they want you to continue taking, or stop taking aspirin before your procedure. Medications containing aspirin that should be stopped 7 days before surgery: Saritha-[place] Anacin Aspirin Fiorinal Ascriptin Pamela Bufferin Lortab ASA Darvon Ecotrin Excedrin Percodan Midol Pepto-Bismol David Examples of Non-Steroidal Anti-Inflammatory Drugs (NSAIDs) that [...] L-carnosine Licorice Kava kava Milk thistle Multivitamin Oracle-3 Resveratrol Skullcap [place]'s wort Vitamin E Adipex (phentermine) Jacob (orlistat) Hydroxycut Garcinia Cambogia Raspberry Ketones [id number] should be stopped 14 days before surgery You will receive specific instructions regarding your insulin and anti-coagulant/anti-platelet medications (if applicable). -- documented in this encounter [facility] 04-16-2024 Note HNO ID: [id number] Author: LOIS MCKEON MD Service: ? Author [...] Assessment right hip arthritis. Lois Mckeon MD [facility] 04-16-2024 History of Presen t illness [...] Lois Mckeon MD documented in this encounter [facility] 04-10-2024 History of Presen t illness [...] wearing PAP, did see a specialist in [place] for eval for inspire, and is going [...] right Allergic rhinitis Anxiety 07/25/2023 Bipolar disorder ([facility]) Chest pain 02/09/2012 Chronic GERD Chronic rhinitis 2023 Constipation COVID-19 01/2022 Crohn's disease ([facility]) De Quervain's tenosynovitis, right Dyspnea on exertion Edema of extremities Elevated serum glucose Enlarged thyroid ([facility]) Flank pain 11/08/2022 Gross hematuria 11/08/2022 History of nausea Hot flashes Hyperlipidemia ([facility]) 09/11/2023 Lumbar back pain with radiculopathy affecting [...] Addressed This Visit PAH (pulmonary artery hypertension) ([facility]) Saw cardiology in the past, was on letaris, no longer taking it or fu with cardiology Non compliant with PAP, looking into inspire No chest pain/pressure/dyspnea Chronic rhinitis Relevant Medications cetirizine (ZyrTEC) 10 MG tablet Anxiety Prn buspar Bipolar disorder, unspecified ([facility]) - Primary Will increase abilify to 15mg Fu in 6 weeks Relevant Medications ARIPiprazole (Abilify) 15 MG tablet Body mass index (BMI) 38.0-38.9, adult Morbid (severe) obesity due to excess calories ([facility]) Neuritis of left median nerve resolved Neuritis of right median nerve resolved Needs flu shot Pt declined Other Visit Diagnoses Gastroesophageal reflux disease, unspecified whether esophagitis present Relevant Medications omeprazole (PriLOSEC) [address] capsule documented in this encounter [facility] 03-19-2024 Note HNO ID: [id number] Author: LOIS MCKEON MD Service: ? Author Type: Physician Type: Progress Notes Filed: 03/19/2024 10:34 Note Text: She is here for chronic right hip and groin pain. Has been injected multiple times and done therapy. Takes medication. Has progressed to the point where she has pain that is affecting her quality of life. 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 Pain is [...] the scan is complete. Lois Mckeon MD [facility] 03-19-2024 History of Presen t illness Narrative She is here for chronic right hip and groin pain. Has been injected multiple times and done therapy. Takes medication. Has progressed to the point where she has pain that is affecting her quality of life. 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 Pain is [...] Lois Mckeon MD documented in this encounter [facility] 03-19-2024 Instructions Clarissa Zacarias RN - 03/19/2024 10:[address] Mckeon has ordered a cream that will be delivered to your home. The company, [employer], will call or text you from a [phone] phone number. Please reply or answer the call to start the process. If you do not hear from them within 48 hours, please call . documented in this encounter [facility] 03-19-2024 History of Presen t illness [...] PATIENT PRESENTS WITH AN IMPLANTABLE OR ATTACHED TASSEL CLIPPER: No RADIOLOGY DEPARTMENT: General X-ray: Exam(s) Completed: Pelvis X-Ray: Pelvis with Hip Right PERIPHERAL IV DATA: Not applicable SIGNED BY: RT Rai(Javy) March 19, 2024 9:04 AM documented in this encounter [facility] 03-19-2024 Note HNO ID: [id number] Author: PAULETTE COREA RT(R) Service: ? Author [...] PATIENT PRESENTS WITH AN IMPLANTABLE OR ATTACHED TASSEL CLIPPER: No RADIOLOGY DEPARTMENT: General X-ray: Exam(s) Completed: Pelvis X-Ray: Pelvis with Hip Right PERIPHERAL IV DATA: Not applicable SIGNED BY: RT Rai(R) March 19, 2024 9:04 AM [facility] 03-18-2024 Telephone encounter Note Left message with pt to be sure to have report as well as images, but we may need an xray if do not have, he will look at xray and do assessment and determine if surgery will be an option. Clarissa Zacarias RN [facility] Work Phone: 03-18-2024 Miscellaneous Notes Left [...] at her appt on 03/19 Callback number: [phone] documented in this encounter [facility] 03-18-2024 Telephone encounter Note Name of Caller: stacey Relationship to patient: patient Last visit in this department: Visit date not found Reason for Call: Other : has questions about what to expect at her appt on 03/19 Callback number: [phone] [facility] 03-06-2024 Note SLEEP CLINIC INITIAL EVALUATION Date of Evaluation: 03/06/24 Referring Physician: Dr. Yumiko Tapia Chief Complaints: NIRMALA and intolerance to CPAP History of Presenting Illness: Stacey Sahu is a 48 y.o. woman presenting to the sleep clinic for the first time. She is referred to us by her track repair worker for evaluation for Inspire??? therapy. She states [...] went to see Dr. Yumiko Tapia at [place] earlier this year. She states that the [...] et al Anesthesiology 2008 and BJA 2011 [place] Sleepiness Scale: How likely are you to [...] of dozing === (more content not included)... [facility] 03-06-2024 Note Currently resolved [facility] 03-06-2024 Note Currently stable and controlled and she is going for pulmonary appt today [facility] 03-06-2024 Note Lipid abnormalities are still elevated with Chol and LDL not within goal. D/w pt will increase lipitor to 80 mg daily and pt to call office for any myalgias or concerns, repeat labs in 2-3 months- LFT and Lipid levels. [facility] 03-06-2024 Note Pt is here for a six month follow up. Pt denies sob, chest pains, palpatations Review of Systems Cardiovascular: Chest pain: discomfort , intermittent. Palpitations: not as bad . All other systems reviewed and are negative. [facility] 03-06-2024 Note UTP CARDIOLOGY PROGR ESS [...] she has appointment with pulmonary today in [place]- r/t NIRMALA untreated. Visit Vitals BP (!) [...] pericardial effusion. No significant valvular abnormalities EKG (2017) Normal sinus rhythm Nonspecific T wave abnormality Abnormal ECG When compared with ECG of 05/19/2015 Nonspecific T wave abnormality Anterolateral leads 05/13/2016 Echo - [facility] Normal LV systolic function normal RV size/function [...] and lipid levels again in 2-3 months [facility] 02-29-2024 History of Presen t illness Narrative Associated Problem(s): Neuritis of right median nerve Continue NSAID, get a cock up splint Fu in 6 weeks Associated Problem(s): Neuritis of left median nerve Cont nsaid Trial cock up splint Recheck in 6 weeks Associated Problem(s): Bipolar disorder, unspecified (CMS/HCC) Cont w abilify [...] day it does cause weakness and weak structural worker. Pt states it has been going on [...] MG DR capsule documented in this encounter [facility] 11-28-2023 [facility] Discharg e instructions Patient Education 11/28/2023 09:06:15 [...] include: ?8 oz (237 mL) of milk, smwgcqa-bnlkcftikjil-lntvh milk, and calcium-fortifiedfruit juice. Calcium-fortified means that [...] ?Spinach (cooked), rhubarb, beets, sweet potatoes, and Italian chard. ?Peanuts. ?Potato chips, belgian fries, and baked potatoes with skin on. ?Nuts and nut products. ?Chocolate. If you regularly take a diuretic medicine, make sure to eat at least 1 or 2 servings of fruits or vegetables that are high in potassium each day. These include: ?Avocado. ?Banana. ?[place], prune, carrot, or tomato juice. ?Baked potato. [...] magnesium, fish oil, or vitamin B6. Take htmr-zwc-jywzmtx and prescription medicines only as told by [...] Casseroles. Pizza. Lasagna. Frozen meals. Potato chips. Belgian fries. The items listed above may not [...] provider. Document Revised: 09/22/2022 Document Reviewed: 09/22/2022 [employer] Patient Education 2022 [employer]. Follow Up Care 05/29/2023 15:22:48 With:LESLIE JUNG PA-C, URL Address: [address] [place] [address] When: Unknown [facility] Miscellaneous Notes [facility] called to say that they are out of network for Stacey's insurance. A referral form will be sent once she selects an orthopedic in-network documented in this encounter [facility] 09-20-2023 Telephone encounter Note [facility] called to say that they are out of network for Stacey's insurance. A referral form will be sent once she selects an orthopedic in-network [facility] [employer] [facility] 09-12-2023 History of Presen t illness Narrative [facility] [address] [place] [address] Patient: Stacey Sahu Sex: female : 1975 Age: 48 y.o. PCP: ESSIE RYAN, GRINDER SET UP OPERATOR SURFACE-MOTOR EQUIPMENT SERGEANT 09/12/2023 Stacey Sahu is here for a(n) [...] patches min: NSAIDS, ice/heat, accupuncture, inj at [place] pain clinic Mod relief: Narcotics Sign: Steroid inj by Ortho) for the symptoms. The treatment provided moderate relief. The effect of pain on patient's ADLS: Moderate Impairment. Past Medical History: Diagnosis Date Arthritis Bipolar disorder ([facility]) Chronic pain disorder Crohn's colitis ([facility]) Depression GERD (gastroesophageal reflux disease) H/O methicillin resistant Staphylococcus aureus infection Hyperlipidemia Joint pain Pleurisy Pulmonary hypertension (CMS-HCC) Pulmonary hypertension (CMS-HCC) Sleep apnea cpap Past Surgical History: Procedure Laterality Date COLON SURGERY part of bowel removed d/t crohns dx HYSTERECTOMY 2017 INJECTION BURSA LARGE JOINT Right Hip Right 09/01/2023 Performed by Pj Gannon MD at [facility] SPINE TRANSFORAMINAL Right L 5,1 Nroot Right 05/26/2023 Performed by Pj Gannon MD at [facility] RELEASE DEQUERVAINS CONTRACTURE Right 10/17/2018 Performed by Dereck Bagley DO at [facility] THYROIDECTOMY, PARTIAL Allergies Allergen Reactions Penicillins [...] Dutton CNA 09/12/23 0828 ADELA Metz 09/12/23 1055 documented in this encounter [facility] 08-21-2023 History of Presen t illness Narrative [facility] [address] [place] [address] Patient: Stacey Sahu Sex: female : 1975 Age: 48 y.o. PCP: ESSIE RYAN, GRINDER SET UP OPERATOR SURFACE-MOTOR EQUIPMENT SERGEANT 08/21/2023 Stacey Sahu is here for a(n) follow up. She reports increased right groin/hip pain. Chief Complaint Patient presents with Hip Pain HPI: Physical Therapy/HEP 03/2022 right hip with some relief 05/26/23 Rt L 5,1 Nroot Inj w/50% relief continued Hip Pain Incident onset: hip pain started in Apr 2021. There was no injury mechanism. The pain is present in the right hip. The quality of the pain is described as aching, shooting and stabbing. Pain scale: 4/10 now, increases to 10/10 w/ADLs. The pain is moderate. The pain has [...] patches min: NSAIDS, ice/heat, accupuncture, inj at [place] [facility] Mod relief: Narcotics Sign: Steroid [...] 05/26/2023 Performed by Pj Gannon MD at [facility] DEQUERVAINS CONTRACTURE Right 10/17/2018 Performed by Dereck Bagley DO at [facility] THYROIDECTOMY, PARTIAL Allergies Allergen Reactions Penicillins [...] on file Food Insecurity: No Food Insecurity (08/21/2023) Hunger Screening Food Insecurity - Worry: Never [...] of breath. Cardiovascular: Negative for chest pain. Endocrine: Negative. Genitourinary: Negative. Musculoskeletal: Rt hip Skin: Negative. Allergic/Immunologic: Negative. Neurological: Negative for tingling and numbness. Hematological: Negative. Psychiatric/Behavioral: Negative. Vital Signs: BP (!) 151/106 Pulse 94 Ht 149.9 cm (4' 11 ) Wt 87.1 kg (192 lb) SpO2 100% BMI 38.78 kg/m Physical Exam: GENERAL - [...] pain. No obvious ligamental laxity is noted. Gait is normal. Assessment/Treatment Plan: Stacey was seen today for hip pain. Diagnoses and all orders for this visit: Chronic right hip pain - X-ray hip right 2-3 views with or without pelvis; Future - Case request operating room: INJECTION BURSA LARGE JOINT RIGHT Lumbar neuritis Right Hip xray Imaging/Diagnostic Testing - It is felt that additional diagnostic testing is necessary to further evaluate the patients current pain pathology. For this reason, we will order additional imaging/diagnostic testing noted above. It is hopeful that this study will identify a significant pain generator that will be amenable to therapy. It is felt that this modality is necessary due to the severity and chronicity of symptoms and physical exam findings combined with the lack of recent imaging/diagnostic testing of the area. Right Hip Injection - under fluoroscopy with the use of contrast dye (unless contraindicated) It is hopeful that the described procedure will provide symptomatic pain relief. It is felt to be medically necessary noting that the patient has tried and failed more conservative modalities of therapy and this is the next most appropriate step. The procedure was described in detail to the patient as well as the potential benefits of pain reduction alongside risks of the procedure and alternatives. Risks were described as including, but not limited to bleeding, infection, nerve damage, spinal cord injury, paralysis, stroke, dural puncture headache, and medication reaction. The patient expressed understanding regarding the risks and benefits and wishes to proceed. It was explained that hip injections occasionally require a repeat injection before significant relief is noted, but we will determine after each injection if another one is indicated. Depending on the amount and duration of relief obtained from the injection, additional modalities of therapy including medications and physical therapy may need to be utilized alongside or following the injections. We may also need to consider surgical options if injections fail to provide relief for a reasonable duration. Follow up 2 weeks after procedure The medications prescribed have been reviewed for [...] prescribe any controlled substance from this practice. The spine model was demonstrated and Xray and MRI was reviewed and used to explain the condition. Chronic conditions not treated during this visit that affected my overall medical decision making: Comorbidity- Obesity The patient does have a comorbid condition of obesity. This will be taken into account in that obesity will contribute to certain pain conditions. It can contribute to pain from degenerative disc disease as well as osteoarthritis of the joints. Many neuropathic symptoms are also amplified due to axial spine loading. Special benefits will also need to be given to procedures. Many procedures are technically more difficult in the light of severe obesity. I will also consider the possibility of undiagnosed obstructive sleep apnea (which often accompanies obesity) when prescribing any narcotic medications. I will weigh the risks and benefits and fully discuss them with the patient for these reasons. Comorbidity- Depression The patient has an ongoing issue with depression and currently feels these symptoms are under control and further feels that appropriate pain management would also help these symptoms. The patient is optimistic about the treatment plan we have laid out. We will continue to monitor these symptoms and remain cogniscent that they may affect the patients perceived improvement from the treatment and willingness to pursue further treatment. At this time the patient appears to be mentally and emotionally stable to undergo procedural and medical therapy. If any warning signs become present, I may refer the patient to a mental health professional for further evaluation. Comorbidity- Sleep Apnea The patient has a history of obstructive sleep apnea. Due to this reason, special consideration will need to be given to the prescription of narcotics in that they may depress respiratory function and lead to respiratory insufficiency or failure. Consideration will also be given to procedure safety in that sedation is used in the outpatient setting for any planned procedure. These records will be available to the anesthesiologist to tailor a safe anesthetic for the procedure. The patient will also be observed closely in the recovery area and may even require admission if they remain overly sedated for an extended period of time and cannot maintain an airway. These preparations will be made as necessary. OARRS: Reviewed. Scribe Statement: Scribed for and in the presence of ADELA METZ by Essie Dutton CNA. Provider Statement: I, ADELA METZ, personally performed the services described in the documentation, as scribed by Essie Dutton CNA in my presence, and it is both accurate and complete. Essie Dutton CNA 08/21/23 0834 ADELA Metz 08/21/23 0908 documented in this encounter [email or web address] [employer] 08-21-2023 Instructions Essie Dutton CNA - 08/21/2023 8:15 AM EST Joint Injections / Other These procedure(s) involve injecting steroid medications into a joint or other area explained by your physician. Steroid medicine decreases pain and inflammation. The injection may also contain an anesthetic (numbing medicine) to decrease pain. It may be done to treat conditions such as arthritis, gout, carpal tunnel syndrome and more. The injections may be given in your hip, knee, ankle, shoulder, elbow, wrist, or ankle. How Long Will This Procedure Last? The extent and duration of pain relief may depend on the amount of inflammation and how many areas are involved. Other coexisting factors may be responsible for your pain. You and your physician will discuss expected results of procedure(s). After Your Injection You may experience soreness and tenderness at the area of treatment. This pain may not occur until later today after the numbing medicine wears off. The steroid can take 3-5 days to work and provide noticeable improvement. Activity You may resume normal activity as your comfort level allows. Medications Resume your routine medications after your procedure. You may resume blood thinners per your regular schedule after the procedure. If you received sedation: If you received sedation for your procedure, you may feel sleepy or not yourself for several hours today. For the next 24 hours avoid activities that requires alertness or coordination. This includes: Driving or operating heavy machinery Using power tools Consuming alcohol Do not make important or complex decisions or sign legal documents in the next 24 hours. Other Instructions: If you feel severe pain at the injection site with swelling and redness, increased leg weakness, a fever of 101 or higher, headache (or worsening headache), changes in vision or urinary retention: Please call the office at , or have someone take you to the nearest emergency room. Tell the emergency room staff that you recently had a spine injection. A doctor must evaluate you for bleeding and injection complications. If you lose control over bowel, bladder, or legs: Go to the nearest emergency room. If you are diabetic, the steroids used in this procedure can increase your blood sugar. If your blood sugar is 250mg/dL or higher, contact your primary care physician, or the doctor who manages your diabetes, to discuss how to get it back to normal. documented in this encounter [facility] [employer] 07-11-2023 Evaluation note Encounter Date Diagnosis Assessment [...] treatment plan. Patient left in stable condition [facility] [facility] Other 01-03-2024 History of Present illness Narrative* Evans Anderson PA-C - 06/28/2023 10:45 AM EST [facility] [address] [place] [address] Patient: Stacey Sahu Sex: female : 1975 [...] min: NSAIDS, ice /heat, accupuncture, inj at [place] [facility] Mod relief: Narcotics Sign: Steroid inj by Ortho) for the symptoms. The treatment provided moderate relief. The effect of pain on patient's ADLS: Minimal Impairment. Past Medical History: Diagnosis Date Arthritis Bipolar disorder ([facility] Chronic pain disorder Crohn's colitis ([facility]) Depression GERD (gastroesophageal reflux disease) H/O methicillin resistant Staphylococcus aureus infection Hyperlipidemia Joint pain Pleurisy Pulmonary hypertension ([facility]) Pulmonary hypertension ([facility]) Sleep apnea cpap Past Surgical History: Procedure Laterality Date COLON SURGERY part of bowel removed d/t crohns dx HYSTERECTOMY 2017 INJECTION SPINE TRANSFORAMINAL Right L 5,1 Nroot Right 05/26/2023 Performed by Pj Gannon MD at [facility] DEQUERVAINS CONTRACTURE Right 10/17/2018 Performed by Dereck Bagley DO at [facility] THYROIDECTOMY, PARTIAL Allergies Allergen Reactions Penicillins [...] accurate and complete. Essie Dutton CNA 06/28/23 1205 Evans Anderson PA-C 06/28/23 1229 [facility] Discharge instructions Patient Education 05/29/2023 15:17:27 Kidney Stones, Zuoh-qf-Tdqm Kidney Stones Kidney stones are rock-like masses [...] Follow these instructions at home: Medicines Take mgvs-fjg-elymtvk and prescription medicines only as told by [...] provider. Document Revised: 02/14/2022 Document Reviewed: 02/14/2022 [employer] Patient Education 2022 [employer]. Follow Up Care 11/08/2022 13:29:10 With:JOSE FELIX, Jose Palafox, URL Address: [facility] [address], [place] [address]- [phone] When: Unknown Comments:4 mos w/ metabolic w/u [facility] 02-09-2023 NoteCONSULTATION CONSULTATION DATE: 08/04/2022 HISTORY OF [...] months, unless otherwise indicated.[facility] [id number] NotePROCEDURE: XR HIP RT 2 3V WO [...] RODRIGEZ Date: 2022-07-07 15:33[facility] [id number] NoteCONSULTATION CONSULTATION DATE: 07/07/2022 HISTORY OF PRESENT [...] agrees to move forward.[facility] [id number] NoteCONSULTATION CONSULTATION DATE: 06/09/2022 HISTORY OF PRESENT [...] in your pocket, or use a mobile avinahs or website. Some programs will calculate calories [...] 06/12/2006 Document Revised: 03/01/2019 Document Reviewed: 05/12/2017 [employer] Patient Education 2020 [employer]. 04/26/2022 12:17:47 Hematuria, Adult Hematuria, Adult Hematuria [...] Follow these instructions at home: Medicines Take ujkx-uuj-lygalaz and prescription medicines only as told by [...] or the blood stops without treatment. Take cewb-fjr-qpgxcwr and prescription medicines only as told by your health care provider. Drink enough fluid to keep your urine clear or pale yellow. This information is not intended to replace advice given to you by your health care provider. Make sure you discuss any questions you have with your health care provider. Document Released: 06/12/2006 Document Revised: 11/06/2019 Document Reviewed: 07/15/2017 [employer] Patient Education 2020 [employer]. Follow Up Care 04/22/2022 08:39:58 With:JOSE FELIX, Jose Palafox, URL Address: [address] [place] [id number] [phone] When:Within 6 Month(s) Comments:6 mo fu with KUB [facility] 10-04-2022 NoteCONSULTATION PROCEDURE DATE: 03/29/2022 PREOPERATIVE [...] up in the [facility] NoteCONSULTATION CONSULTATION DATE: 03/22/2022 CHIEF COMPLAINT: Right [...] up subsequent to that. CC: Essie Ryan [facility]09-13-2022 Hospital Discharge instructions Patient Education [...] With:Jose GARCIA Address: [facility] [address] [place] [address]- [facility] (1) When: Unknown Comments:Office will call to schedule follow up [facility]20[facility] History of Present illness Narrative* Shiraz Roy, DO - 02/21/2022 12:46 PM EDT Images from the original note were not included. [facility] - Medical Spine Initial [...] gel - no benefit Therapies PT at [facility] in [place] in June 2021 - 2 times per week for 1 month, exercises, TENS, ice - no relief Ice/heat Prior spine/MSK interventions: -12/31/21 Dr. Page: R GTB CSI - minimal relief for 1 day. 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 Subjective Patient ID: Stacey [...] x 4 Crohn's disease without complication (HCC) [id number] Pulmonary Htn (Hcc) Obese Nirmala (Obstructive Sleep [...] 2022 TIME: 3:46 PM [facility] History of Present illness Narrative* Jorge Luis Page DO - 12/31/2021 12:54 PM EDT Associated Order(s): Large Joint Arthro/Inj: R greater trochanteric bursa Post-Procedure Diagnose(s): Trochanteric bursitis of right hip SERVICE DATE: December 31, 2021 PCP: Essie Ryan, NIURKA, MOTOR EQUIPMENT SERGEANT Patient was self-referred. Subjective Patient ID: Stacey [...] x 4 Crohn's disease without complication (HCC) [id number] Pulmonary Htn (Hcc) Obese Nirmala (Obstructive Sleep [...] trochanteric bursa Informed Consent Consent Obtained: Verbal Masterson Protocol A moment to CARE was completed. [...] 2021 TIME: 1:05 PM [facility] Evaluation note* Encounter Date Diagnosis Assessment [...] to Dr. Christian with the [facility]. [facility] Other 05-25-2022 Evaluation note* Encounter Date Diagnosis [...] I will see her with those results. [facility] Other 06-21-2021 History of Past illness Narrative* Problem Noted Date Resolved Date Generalized abdominal pain 12/14/202012/16 documented as of this encounter (statuses as of 12/31/2021) [facility] History of Past illness Narrative* Problem Noted Date Resolved Date Generalized abdominal pain 12/14/202012/16 documented as of this encounter (statuses as of 01/17/2022) [facility] of Past illness Narrative* Problem Noted Date Resolved Date Generalized abdominal pain 12/14/202012/16 documented as of this encounter (statuses as of 03/13/2022) [facility] No data available for this section [facility] Future Appointments Appointment Date:10/24/2022 11:30:00 AM Scheduled Provider:Jose GARCIA MD Location:[facility] Appointment Type:URO Office Visit [facility] Cyrus Evaluation + Plan note Future Appointments Appointment Date:05/29/2023 02:30:00 PM Scheduled Provider:Jose GARCIA MD Location:[facility] Appointment Type:URO Office Visit Future Scheduled Tests Laboratory* Calprotectin, Fecal 11/24/22 * CBC w/ Auto Diff 11/24/22 * Comprehensive Metabolic Panel 11/24/22 * C-Reactive Protein 11/24/22 Radiology* CT Abdomen/Pelvis w/contrast (enterography) 11/24/22 [facility] Evaluation + Plan note Future Appointments Appointment Date:05/29/2023 02:30:00 PM Scheduled Provider:Jose GARCIA MD Location:[facility] Appointment Type:URO Office Visit Future Scheduled Tests Laboratory* Calprotectin, Fecal 11/24/22 * CBC w/ Auto Diff 11/24/22 * Comprehensive Metabolic Panel 11/24/22 * C-Reactive Protein 11/24/22 [facility] Future Appointments Appointment Date:02/02/2023 01:00:00 PM Scheduled Provider:Ignacia KHAN MD Location:[facility] Appointment Type:[facility] Follow Up Appointment Date:05/29/2023 02:30:00 PM Scheduled Provider:Jose GARCIA MD Location:[facility] Appointment Type:URO Office Visit Future Scheduled Tests Laboratory* Calprotectin, Fecal 11/24/22 [facility] Future Appointments Appointment Date:05/29/2023 02:30:00 PM Scheduled Provider:Jose GARCIA MD Location:[facility] Appointment Type:URO Office Visit Diagnostic Tests Pending * Calprotectin, Fecal 02/02/23 [facility] Future Appointments Appointment Date:10/02/2023 03:00:00 PM Scheduled Provider:Jose GARCIA MD Location:[facility] Appointment Type:URO Office Visit [facility] evaluation note* Diagnosis Trochanteric bursitis of right hip- Primary Enthesopathy of hip region [facility] noteNo [employer] 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 documented in this encounter [facility] note* Diagnosis Tendinopathy of right gluteal region- Primary Trochanteric bursitis of right hip Enthesopathy of hip region Chronic bilateral low back pain without sciatica Lumbar spondylosis Lumbosacral spondylosis without myelopathy documented in this encounter [facility] note* Diagnosis Exhausted vascular access Other specified [...] region and thigh documented in this encounter [facility] note* Diagnosis Exhausted vascular access Other specified [...] region and thigh documented in this encounter [facility] note* Diagnosis Acute otitis media, unspecified otitis [...] index (BMI) 38.0-38.9, adult Pulmonary hypertension, unspecified ([facility]) Crohn's disease of both small and large intestine without complications ([facility]) Chronic right hip pain Bipolar disorder, current episode mixed, moderate ([facility])- Primary Chronic rhinitis Gastroesophageal reflux disease, unspecified whether esophagitis present BMI 38.0-38.9,adult Neuritis of left median nerve Neuritis of right median nerve Bipolar disorder, unspecified ([facility]) Bipolar disorder, unspecified Bipolar disorder, unspecified ([facility])- Primary Bipolar disorder, unspecified Neuritis of right median nerve Neuritis of left median nerve Morbid (severe) obesity due to excess calories ([facility]) Body mass index (BMI) 38.0-38.9, adult Anxiety Anxiety state, unspecified PAH (pulmonary artery hypertension) ([facility]) Other chronic pulmonary heart diseases Chronic rhinitis Gastroesophageal reflux disease, unspecified whether esophagitis present Needs flu shot Need for prophylactic vaccination and inoculation against influenza [facility] Exhausted vascular access [...] by other means [facility]* Diagnosis Exhausted vascular access Other specified [...] region and thigh [facility]* Diagnosis Acute otitis media, unspecified otitis [...] pain Bipolar disorder, current episode mixed, moderate ([facility])- Primary Chronic rhinitis Gastroesophageal reflux disease, unspecified whether esophagitis present BMI 38.0-38.9,adult Neuritis of left median nerve Neuritis of right median nerve Bipolar disorder, unspecified (CMS/HCC) Bipolar disorder, unspecified Bipolar disorder, unspecified ([facility]/HCC)- Primary Bipolar disorder, unspecified Neuritis of right [...] and inoculation against influenza Bipolar 1 disorder ([facility])- Primary NIRMALA (obstructive sleep apnea) Obstructive sleep apnea (adult) (pediatric) PAH (pulmonary artery hypertension) (CMS/HCC) Other chronic pulmonary heart diseases Chronic right hip pain Morbid (severe) obesity due to excess calories ([facility]) Anxiety Anxiety state, unspecified Chronic rhinitis Body [...] non-compliant with CPAP [facility]* Diagnosis Bipolar disorder, current episode mixed, moderate (CMS/HCC)- Primary Chronic rhinitis Gastroesophageal reflux disease, unspecified whether esophagitis present BMI 38.0-38.9,adult Neuritis of left median nerve Neuritis of right median nerve Bipolar disorder, unspecified (CMS/HCC) Bipolar disorder, unspecified documented in this encounter [facility]* Diagnosis Bipolar disorder, current episode mixed, moderate (CMS/HCC)- Primary Chronic rhinitis Gastroesophageal reflux disease, unspecified whether esophagitis present BMI 38.0-38.9,adult Neuritis of left median nerve Neuritis of right median nerve Bipolar disorder, unspecified (CMS/HCC) Bipolar disorder, unspecified documented in this encounter [facility]* Diagnosis Exhausted vascular access [...] right hip- Primary [facility]* Diagnosis Exhausted vascular access Other specified [...] by other means documented in this encounter [facility]* Diagnosis Lumbar radiculopathy- Primary Thoracic or lumbosacral neuritis or radiculitis, unspecified [facility] Diagnosis Chronic right hip pain [facility]* Diagnosis Chronic right hip pain- Primary Lumbar neuritis Chronic right hip pain- Primary Chronic right hip pain [facility] Diagnosis Chronic right hip pain- Primary [facility]* Diagnosis NIRMALA (obstructive sleep apnea)- Primary Obstructive sleep apnea (adult) (pediatric) Obstructive sleep apnea- Primary Obstructive sleep apnea (adult) (pediatric) Obstructive sleep apnea Obstructive sleep apnea (adult) (pediatric) documented [facility]* Diagnosis NIRMALA (obstructive sleep apnea)- Primary Obstructive sleep apnea (adult) (pediatric) Obstructive sleep apnea Obstructive sleep apnea (adult) (pediatric) Obstructive sleep apnea- Primary Obstructive sleep apnea (adult) (pediatric) Obstructive sleep apnea Obstructive sleep apnea (adult) (pediatric) NIRMALA (obstructive sleep apnea) Obstructive sleep apnea (adult) (pediatric) documented [facility]* Diagnosis Acute otitis media, unspecified otitis [...] pain Bipolar disorder, current episode mixed, moderate ([facility])- Primary Chronic rhinitis Gastroesophageal reflux disease, unspecified whether esophagitis present BMI 38.0-38.9,adult Neuritis of left median nerve Neuritis of right median nerve Bipolar disorder, unspecified ([facility]) Bipolar disorder, unspecified Bipolar disorder, unspecified ([facility])- Primary Bipolar disorder, unspecified Neuritis of right median nerve Neuritis of left median nerve Morbid (severe) obesity due to excess calories ([facility]) Body mass index (BMI) 38.0-38.9, adult Anxiety Anxiety state, unspecified PAH (pulmonary artery hypertension) ([facility]) Other chronic pulmonary heart diseases Chronic rhinitis Gastroesophageal reflux disease, unspecified whether esophagitis present Needs flu shot Need for prophylactic vaccination and inoculation against influenza Bipolar 1 disorder ([facility])- Primary NIRMALA (obstructive sleep apnea) Obstructive sleep apnea (adult) (pediatric) PAH (pulmonary artery hypertension) ([facility]) Other chronic pulmonary heart diseases Chronic right hip pain Morbid (severe) obesity due to excess calories ([facility]) Anxiety Anxiety state, unspecified Chronic rhinitis Body mass index (BMI) 38.0-38.9, adult Anxiety- Primary Anxiety state, unspecified Morbid (severe) obesity due to excess calories ([facility]) Mixed hyperlipidemia ([facility]) Mixed hyperlipidemia Body mass index (BMI) 38.0-38.9, adult Bipolar disorder, unspecified ([facility]) Bipolar disorder, unspecified Pulmonary hypertension, unspecified ([facility]) Crohn's disease of both small and large intestine without complications ([facility]) NIRMALA (obstructive sleep apnea) Obstructive sleep apnea (adult) (pediatric) PAH (pulmonary artery hypertension) ([facility]) Other chronic pulmonary heart diseases Gastro-esophageal reflux disease without esophagitis S/P total right hip arthroplasty Encounter for screening mammogram for malignant neoplasm of breast Gastroesophageal reflux disease, unspecified whether esophagitis present Dizziness and giddiness documented in this encounter [facility]* Diagnosis Obstructive sleep apnea- Primary Obstructive sleep apnea (adult) (pediatric) [facility] Diagnosis Acute otitis media, unspecified otitis [...] apnea (adult) (pediatric) PAH (pulmonary artery hypertension) (CMS/HCC) Other chronic pulmonary heart diseases Chronic right hip pain Morbid (severe) obesity due to excess calories (CMS/HCC) Anxiety Anxiety state, unspecified Chronic rhinitis Body mass index (BMI) 38.0-38.9, adult Anxiety- Primary Anxiety state, unspecified Morbid (severe) obesity due to excess calories (CMS/HCC) Mixed hyperlipidemia (CMS/HCC) Mixed hyperlipidemia Body mass index (BMI) 38.0-38.9, adult Bipolar disorder, unspecified (CMS/HCC) Bipolar disorder, unspecified Pulmonary hypertension, unspecified (CMS/HCC) Crohn's disease of both small and large intestine without complications (CMS/HCC) NIRMALA (obstructive sleep apnea) Obstructive sleep apnea (adult) (pediatric) PAH (pulmonary artery hypertension) (CMS/HCC) Other chronic pulmonary heart diseases Gastro-esophageal reflux disease without esophagitis S/P total right hip arthroplasty Encounter for screening mammogram for malignant neoplasm of breast Gastroesophageal reflux disease, unspecified whether esophagitis present Dizziness and giddiness Dizziness and giddiness- Primary NIRMALA (obstructive sleep apnea) Obstructive sleep apnea (adult) (pediatric) Morbid (severe) obesity due to excess calories (CMS/HCC) Bipolar disorder, unspecified (CMS/HCC) Bipolar disorder, unspecified Mixed hyperlipidemia (CMS/HCC) Mixed hyperlipidemia Anxiety Anxiety state, unspecified Chronic right hip pain Gastroesophageal reflux disease, unspecified whether esophagitis present Left hip pain Pain in joint, pelvic region and thigh documented in [facility] N[facility] - Reported* Type Description Date Medical History acid reflux Surgical History biopsy of intestines Surgical History hysterectomy [facility] Other Hospital Discharge instructions No data available for this section [facility] InstructionsNot on filedocumented in this encounter [facility] filedocumented in this encounter [facility] on filedocument[facility] in this encounter [facility] on filedocumented in this encounter [facility] on filedocumented in this encounter [facility] No data available for this section [facility] Diagnostic Procedure Only (Routine) - Closed Specialty Diagnoses / Procedures Referred By Wan gamboa Referred To Contact XR IMAGING Diagnoses Pain in right hip Procedures XR HIP GENERAL 3V PELV/AP/LAT RIGHT RADEX HIP UNILATERAL WITH PELVIS 2-3 VIEWS Mayito Gifford PA-C [address] [place] [address] [place] [id number] Referral ID Status Reason Start Date Expiration Date V isits Requested Visits Authorized [id number] Closed Auto-Generate d Referral 03/15/2024 04/14/2025 1 1 [facility] for referral (narrative)* - Pending Review Specialty Diagnoses / Procedures Referred By Contac t Referred To Contact Physical Therapy Diagnoses Status post right hip replacement Procedures CONSULT TO PHYSICAL THERAPY Lois Mckeon MD [address] [place] [id number] Referral ID Status Reason Start Date Expiration Date V isits Requested Visits Authorized [id number] Pending Review 04/16/2024 07/15/2024 1 1 [facility] for referral (narrative)* Outpatient Procedure (Routine) - New Request Specialty Diagnoses / Procedures Referred By Yuliyaac t Referred To Contact [facility] Diagnoses Pre-op evaluation Procedures ECG COMPLETE ECG ROUTINE ECG W/LEAST 12 LDS W/I&R Negrita Tejeda APRN.CNP [address] [place] [address] [facility] [place] [address] Referral ID Status Reason Start Date Expiration Date Visits Requested Visits Authorized [id number] New Request Auto-Generat ed Referral 06/05/2025 1 1 [facility] for referral (narrative)* Diagnostic Procedure Only (Routine) - Pending Review Specialty Diagnoses / Procedures Referred By Contac t Referred To Contact XR IMAGING Diagnoses Status post right hip replacement Procedures XR HIP GENERAL 3V PELV/AP/LAT RIGHT RADEX HIP UNILATERAL WITH PELVIS 2-3 VIEWS Mayito Gifford PA-C [address] [place] [address] [place] [id number] Referral ID Status Reason Start Date Expiration Date Visits Requested Visits Authorized [id number] Pending Review Auto-Generat ed Referral 07/22/2024 08/21/2025 1 1 [facility] for referral (narrative)* Consultation (Routine) - Pending Review Specialty Diagnoses / Procedures Referred By Contac t Referred To Contact Orthopedic Surgery Diagnoses Chronic right hip pain Imani Chan APRN-MOTOR EQUIPMENT SERGEANT [address] [place] [address] Bang Cuellar MD [address] [place] [address] Referral ID Status Reason Start Date Expiration Date Visits Requested Visits Authorized [id number] Pending Review Specialty Services Required 09/12/2023 09/11/2024 1 1 [facility] for visit Narrative* Diagnostic Procedure Only (Routine) - Pending Review Specialty Diagnoses / Procedures Referred By Contac t Referred To Contact XR IMAGING Diagnoses Status post right hip replacement Procedures XR HIP GENERAL 3V PELV/AP/LAT RIGHT RADEX HIP UNILATERAL WITH PELVIS 2-3 VIEWS Mayito Gifford PA-C [address] [place] [address] [place] [id number] Referral ID Status Reason Start Date Expiration Date Visits Requested Visits Authorized [id number] Pending Review Auto-Generat ed Referral 07/22/2024 08/21/2025 1 1 [facility] Summary Purpose Family History No Family [...] FoundDocuments on File Type Date Recorded Patient Manager Of Administration Expl anation Advance Directive(s) 12/12/2020 8:14 PM Documents on File Type Date Recorded Patient Manager Of Administration Expl anation Advance Directive(s) 12/12/2020 8:14 PM Reason for Referral Specialty Diagnoses / Procedures Referred By Contac t Referred To Contact Diagnoses Chronic right hip pain Procedures Case request operating room: INJECTION BURSA LARGE JOINT RIGHT Imani Chan GRINDER SET UP OPERATOR SURFACE-MOTOR EQUIPMENT SERGEANT [address] [place] [address] Referral ID Status Reason Start Date Expiration Date V isits Requested Visits Authorized [id number] Pending Review 08/21/2023 08/20/2024 1 1 Specialty Diagnoses / Procedures Referred By Contac t Referred To Contact MR IMAGING Diagnoses Pain of right hip Procedures MRI HIP WO IVCON RIGHT MRI ANY JT LOWER EXTREM W/O CONTRAST Lois Le MD [address] [place], [place] [id number] [place] [id number] Referral ID Status Reason Start Date Expiration Date Visits Requested Visits Authorized [id number] New Request Auto-Generat ed Referral 03/19/2024 04/18/2025 1 1 Specialty Diagnoses / Procedures Referred By Contac t Referred To Contact Diagnoses Trochanteric bursitis of right hip Tendinopathy of right gluteal region Chronic bilateral low back pain without sciatica Lumbar spondylosis Procedures CONSULT TO [facility] 60-74 MINUTES Shiraz Roy DO [address] [place] [address] Referral ID Status Reason Start Date Expiration Date Visits Requested Visits Authorized [id number] Pending Review PCP Requested Referral 02/21/2022 02/21/2023 1 1 Specialty Diagnoses / Procedures Referred By Contac t Referred To Contact Sports Medicine Diagnoses Trochanteric bursitis of right hip Tendinopathy of right gluteal region Procedures CONSULT TO SPORTS MEDICINE OFFICE[facility] 60-74 MINUTES Shiraz Roy DO [address] [place] [address] Referral ID Status Reason Start Date Expiration Date Visits Requested Visits Authorized [id number] Authorized PCP Requested Referral 02/21/2022 02/21/2023 1 1 Specialty Diagnoses / Procedures Referred By Contac t Referred To Contact Spine Faxon Diagnoses Trochanteric bursitis of right hip Lumbago-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 Procedures CONSULT TO [facility] 60-74 MINUTES Jorge Luis Page, DO [address] [place] [address] Referral ID Status Reason Start Date Expiration Date Visits Requested Visits Authorized [id number] Authorized PCP Requested Referral 01/17/2022 01/17/2023 1 1 Reason evaluate and treat. Gluteal tendon tear vs greater trochanteric bursitis Please refer to Bang Christian MD, Orthopaedic Surgery, [facility] Diagnosis 1 Trochanteric bursiti s, right hip (M70.61) Referral Organization [facility] Referring Provider First Name Alexis Referring Provider Last Name Dany ARDON Referring Provider Specialty Orthopedic Surgery Referred Organization [facility] Referred Address [address],[place], [place],[address] Referred Provider Specialty ORTHOPEDIC S URGEON Referral [...] content) DATE CREATED AUTHOR 12/19/[address] [facility] DATE CREATED AUTHOR AUTHOR'S ORGANIZ ATION 12/08/[address] [facility] DATE CREATED AUTHOR AUTHOR'S ORGANIZ ATION 12/04/2022 [facility] DATE CREATED AUTHOR AUTHOR'S ORGANIZ ATION 09/12/2023 [facility] DATE CREATED AUTHOR AUTHOR'S ORGANIZ ATION 07/07/2024 [facility] DATE CREATED AUTHOR AUTHOR'S ORGANIZ ATION 08/01/2024 [facility] DATE CREATED AUTHOR AUTHOR'S ORGANIZ ATION 08/24/2024 [facility] DATE CREATED AUTHOR AUTHOR'S ORGANIZ ATION 09/08/2024 [facility] DATE CREATED AUTHOR AUTHOR'S ORGANIZ ATION 09/21/2024 Lazaro Lopez [facility] DATE CREATED AUTHOR AUTHOR'S ORGANIZ ATION 09/29/2024 [facility] DATE CREATED AUTHOR AUTHOR'S ORGANIZ ATION 10/01/2024 [facility] dical Specialists EPIC REASON FOR VISIT (unrecogniz ed section and content) Reason Comments New Specialty Diagnoses / Procedures Referred By Contac t Referred To Contact Orthopedics / ORTHOPAEDIC SURGERY Diagnoses Greater Trochanteric Bursitis right hip vs Gluteal Tendon tear *OUTSIDE IMG PT TO BRING Procedures LANA NEW NO XRAY Alexis Saenz II, MD [address] [place] [address] Jorge Luis Page, [place] [address] Referral ID Status Reason Start Date Expiration Date Visits Requested Visits Authorized [id number] Authorized Financial Clearance Not Required 12/24/2021 01/23/2022 99 99 Reason Comments Follow Up Reason Comments New Patient Evaluation Lower back pain/R ight side sciatica Specialty Diagnoses / Procedures Referred By Contac t Referred To Contact Spine Faxon Diagnoses Trochanteric bursitis of right hip Lumbago-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 Procedures CONSULT TO [facility] OFFICE/OUTPATIENT NEW HIGH MDM 60-74 MINUTES Jorge Luis Page, [place] [address] Referral ID Status Reason Start Date Expiration Date V isits Requested Visits Authorized [id number] Closed PCP Requested Referral 01/17/2022 01/17/2023 1 1 Reason Comments New Surgical consult Reason Comments Radio Gen RMP Specialty Diagnoses / Procedures Referred By Contac t Referred To Contact XR IMAGING Diagnoses Pain in right hip Procedures XR HIP GENERAL 3V PELV/AP/LAT RIGHT RADEX HIP UNILATERAL WITH PELVIS 2-3 VIEWS Mayito Gifford PA-C [address] [place] [address] [place] [address] Referral ID Status Reason Start Date Expiration Date V isits Requested Visits Authorized [id number] Closed Auto-Generate d Referral 03/15/2024 04/14/2025 1 1 Reason Comments Established Patient Surgical consult Results - Mri Surgical consult Reason Comments Schedule Surgery Reason Comments Bipolar Reason Comments Question See note Reason Comments Established Patient Surgical consult Post Op Surgical consult Reason Comments Hip Pain Reason Comments Med Refill Reason Comments Hip Pain Reason Comments inspire consult Specialty Diagnoses / Procedures Referred By Contac t Referred To Contact Otolaryngology Diagnoses NIRMALA (obstructive sleep apnea) Procedures LA OFFICE OUTPATIENT VISIT 60-74 MINS HIGH MDM AMB REFERRAL TO ENT Trinh Eduardo MD [address] [place] [address] Phone: tel: fax: Jeff Rossi MD [address] [facility] [address] [place] [address] Phone: tel: fax: Referral ID Status Reason Start Date Expiration Date V isits Requested Visits Authorized [id number] Pending Review 03/08/2024 03/08/2025 1 1 Reason Comments Post-op Source Comments (unrecognize d section and content) In the event this informatio n is protected by the Federal Confidentiality of Alcohol and Drug Abuse Patient Records regulations: The Federal rules restrict any use of the information to criminally investigate or prosecute any alcohol or drug abuse patient.[facility] the event this information is protected by the Federal Confidentiality of Alcohol and Drug Abuse Patient Records regulations: The Federal rules restrict any use of the information to criminally investigate or prosecute any alcohol or drug abuse patient.[facility] the event this information is protected by the Federal Confidentiality of Alcohol and Drug Abuse Patient Records regulations: The Federal rules restrict any use of the information to criminally investigate or prosecute any alcohol or drug abuse patient.[facility] the event this information is protected by the Federal Confidentiality of Alcohol and Drug Abuse Patient Records regulations: The Federal rules restrict any use of the information to criminally investigate or prosecute any alcohol or drug abuse patient.[facility] the event this information is protected by the Federal Confidentiality of Alcohol and Drug Abuse Patient Records regulations: The Federal rules restrict any use of the information to criminally investigate or prosecute any alcohol or drug abuse patient.[facility] the event this information is protected by the Federal Confidentiality of Alcohol and Drug Abuse Patient Records regulations: The Federal rules restrict any use of the information to criminally investigate or prosecute any alcohol or drug abuse patient.[facility] the event this information is protected by the Federal Confidentiality of Alcohol and Drug Abuse Patient Records regulations: The Federal rules restrict any use of the information to criminally investigate or prosecute any alcohol or drug abuse patient.[facility] the event this information is protected by the Federal Confidentiality of Alcohol and Drug Abuse Patient Records regulations: The Federal rules restrict any use of the information to criminally investigate or prosecute any alcohol or drug abuse patient.[facility] the event this information is protected by the Federal Confidentiality of Alcohol and Drug Abuse Patient Records regulations: The Federal rules restrict any use of the information to criminally investigate or prosecute any alcohol or drug abuse patient.[facility] the event this information is protected by the Federal Confidentiality of Alcohol and Drug Abuse Patient Records regulations: The Federal rules restrict any use of the information to criminally investigate or prosecute any alcohol or drug abuse patient.[facility] the event this information is protected by the Federal Confidentiality of Alcohol and Drug Abuse Patient Records regulations: The Federal rules restrict any use of the information to criminally investigate or prosecute any alcohol or drug abuse patient.[facility] Hospital[facility] the event this information is protected by the Federal Confidentiality of Alcohol and Drug Abuse Patient Records regulations: The Federal rules restrict any use of the information to criminally investigate or prosecute any alcohol or drug abuse patient.[facility] Care Teams (unrecognized sec tion and content) Special Procedures Tech Relationship Specialty Start Date End Date Essie Ryan CNP PCP - General Family Practice 07/22/16 Adán Torres Obstetrics 07/22/16 Alexis Saenz II, MD [address] [place] [address] Referring Orthopedics 12/13/21 Special Procedures Tech Relationship Specialty Start Date End Date Essie Ryan [facility] PCP - General Family Practice 07/22/16 Adán Torres DO Obstetrics 07/22/16 Alexis Saenz II, MD [address] [place] [address] Referring Orthopedics 12/13/21 Special Procedures Tech Relationship Specialty Start Date End Date Essie Ryan [facility] PCP - General Family Practice 07/22/16 Adán Torres DO Obstetrics 07/22/16 Alexis Saenz II, MD [address] [place] [address] Referring Orthopedics 12/13/21 Special Procedures Tech Relationship Specialty Start Date End Date Essie Ryan CNP PCP - General Family Medicine 07/22/16 Adán Torres DO Obstetrics 07/22/16 Alexis Saenz II, MD [address] [place], [place] [id number] Referring Orthopedics 12/13/21 Angel Deglado DO [address] [place], [place] [id number] Referring Orthopedics 03/08/24 Special Procedures Tech Relationship Specialty Start Date End Date Essie Ryan CNP PCP - General Family Medicine 07/22/16 Adán Torres DO Obstetrics 07/22/16 Alexis Saenz II, MD [address] [place] [address] Referring Orthopedics 12/13/21 Angel Delgado DO [address] [place] [address] Referring Orthopedics 03/08/24 Special Procedures Tech Relationship Specialty Start Date End Date Essie Ryan CNP PCP - General Family Medicine 07/22/16 Adán Torres DO Obstetrics 07/22/16 Alexis Saenz II, MD [address] [place] [address] Referring Orthopedics 12/13/21 Angel Delgado DO [address] [place] [address] Referring Orthopedics 03/08/24 Special Procedures Tech Relationship Specialty Start Date End Date Yuriy Martins MD [address] [place] [address] PCP - General Family Medicine 08/17/23 Essie Ryan NP [address] [place] [address] PCP - [facility] 12/25/23 Essie Ryan NP [address] [place] [address] Nurse Practitioner Family Medicine 08/17/23 Special Procedures Tech Relationship Specialty Start Date End Date Yuriy Martins MD [address] [place] [address] PCP - General Family Medicine 08/17/23 Essie Ryan NP [address] [place] [address] PCP - [facility] 12/25/23 Essie Ryan NP [address] [place] [address] Nurse Practitioner Family Medicine 08/17/23 Special Procedures Tech Relationship Specialty Start Date End Date Essie Ryan CNP PCP - General Family Medicine 07/22/16 Adán Torres DO Obstetrics 07/22/16 Alexis Saenz II, MD [address] [place] [address] Referring Orthopedics 12/13/21 Angel Delgado DO [address] [place] [address] Referring Orthopedics 03/08/24 Special Procedures Tech Relationship Specialty Start Date End Date Essie Ryan [employer] PCP - General Family Medicine 07/22/16 Adán Torres DO Obstetrics 07/22/16 Alexis Saenz II, MD [address] [place] [address] Referring Orthopedics 12/13/21 Angel Delgado DO [address] [place] [address] Referring Orthopedics 03/08/24 Special Procedures Tech Relationship Specialty Start Date End Date Essie Ryan NP [address] [place] [address] PCP - [facility] 12/25/23 Yuriy Martins MD [address] [place] [address] PCP - General Family Medicine 05/29/24 Essie Ryan NP [address] [place] [address] Nurse Practitioner Family Medicine 08/17/23 Special Procedures Tech Relationship Specialty Start Date End Date Essie Ryan NP [address] [place] [address] PCP - [facility] 12/25/23 Yuriy Martins MD [address] [place] [address] PCP - General Family Medicine 05/29/24 Essie Ryan NP [address] [place] [address] Nurse Practitioner Family Medicine 08/17/23 Special Procedures Tech Relationship Specialty Start Date End Date Essie Ryan [employer] E[employer] PCP - General Family Medicine 07/22/16 Adán Torres DO Obstetrics 07/22/16 Alexis Saenz II, MD [address] [place] [address] Referring Orthopedics 12/13/21 Angel Delgado DO [address] [place] [address] Referring Orthopedics 03/08/24 Special Procedures Tech Relationship Specialty Start Date End Date Essei Ryan CNP PCP - General Family Medicine 07/22/16 Adán Torres DO Obstetrics 07/22/16 Alexis Saenz II, MD [address] [place] [address] Referring Orthopedics 12/13/21 Angel Delgado DO [address] [place] [address] Referring Orthopedics 03/08/24 Special Procedures Tech Relationship Specialty Start Date End Date Essie Ryan NP [address] [place] [address] PCP - [facility] 12/25/23 Yuriy Martins MD [address] [place] [address] PCP - General Family Medicine 05/29/24 Essie Ryan NP [address] [place] [address] Nurse Practitioner Family Medicine 08/17/23 Special Procedures Tech Relationship Specialty Start Date End Date Essie Ryan NP [address] [place] [address] PCP - [facility] 12/25/23 Yuriy Martins MD [address] [place] [address] PCP - General Family Medicine 05/29/24 Essie Ryan NP [address] [place] [address] Nurse Practitioner Family Medicine 08/17/23 Special Procedures Tech Relationship Specialty Start Date End Date Yuriy Martins MD [address] [place] [address] PCP - General Family Medicine 08/17/23 Essie Ryan NP [address] [place] [address] PCP - [facility] 12/25/23 Essie Ryan NP [address] [place] [address] Nurse Practitioner Family Medicine 08/17/23 Special Procedures Tech Relationship Specialty Start Date End Date Yuriy Martins MD [address] [place] [address] PCP - General Family Medicine 08/17/23 Essie Ryan NP [address] [place] [address] PCP - [facility] 12/25/23 Essie Ryan NP [address] [place] [address] Nurse Practitioner Family Medicine 08/17/23 Special Procedures Tech Relationship Specialty Start Date End Date Yuriy Martins MD [address] [place] [address] PCP - General Family Medicine 08/17/23 Essie Ryan NP [address] [place] [address] PCP - [facility] 12/25/23 Essie Ryan NP [address] [place] [address] Nurse Practitioner Family Medicine 08/17/23 Special Procedures Tech Relationship Specialty Start Date End Date Yuriy Martins MD [address] [place] [address] PCP - General Family Medicine 08/17/23 Essie Ryan NP [address] [place] [address] PCP - [facility] 12/25/23 Essie Ryan NP [address] [place] [address] Nurse Practitioner Family Medicine 08/17/23 Special Procedures Tech Relationship Specialty Start Date End Date Essie Ryan APRN-M[employer]OR EQUIPMENT SERGEANT PCP - General Nurse Practitioner 10/03/18 Special Procedures Tech Relationship Specialty Start Date End Date Essie Ryan APRN-M[employer]OR EQUIPMENT SERGEANT PCP - General Nurse Practitioner 10/03/18 Special Procedures Tech Relationship Specialty Start Date End Date Essie Ryan NP [address] [place] [address] PCP - [facility] 12/25/23 Yuriy Martins MD [address] [place] [address] PCP - General Family Medicine 05/29/24 Essie Ryan NP [address] [place] [address] Nurse Practitioner Family Medicine 08/17/23 Special Procedures Tech Relationship Specialty Start Date End Date Essie Ryan [employer] PCP - General Family Medicine 07/22/16 Adán Torres DO Obstetrics 07/22/16 Alexis Saenz II, MD [address] [place] [address] Referring Orthopedics 12/13/21 Angel Delgado DO [address] [place] [address] Referring Orthopedics 03/08/24 Special Procedures Tech Relationship Specialty Start Date End Date Essie Ryan, MOT[employer] EQUIPMENT SERGEANT PCP - General Family Medicine 07/22/16 Adán Torres DO Obstetrics 07/22/16 Alexis Saenz II, MD [address] [place] [address] Referring Orthopedics 12/13/21 Angel Delgado DO [address] [place] [address] Referring Orthopedics 03/08/24 Special Procedures Tech Relationship Specialty Start Date End Date Essie Ryan APRN-MOTOR EQUIPMENT SERGEANT [address] [place] [address] PCP - General Nurse Practitioner 10/03/18 Special Procedures Tech Relationship Specialty Start Date End Date Essie Ryan APRN-M[employer]OR EQUIPMENT SERGEANT [address] [place] [address] PCP - General Nurse Practitioner 10/03/18 Special Procedures Tech Relationship Specialty Start Date End Date Essie Ryan [facility] [address] [place] [address] PCP - General Nurse Practitioner 10/03/18 Special Procedures Tech Relationship Specialty Start Date End Date Essie Ryan [facility] [address] [place] [address] PCP - General Nurse Practitioner 10/03/18 Special Procedures Tech Relationship Specialty Start Date End Date Essie Ryan [facility] [address] [place] [address] PCP - General Nurse Practitioner 10/03/18 Special Procedures Tech Relationship Specialty Start Date End Date Essie Ryan [facility] PCP - General Nurse Practitioner 10/03/18 Special Procedures Tech Relationship Specialty Start Date End Date Essie Ryan [facility] PCP - General Nurse Practitioner 10/03/18 Special Procedures Tech Relationship Specialty Start Date End Date Essie Ryan [facility] PCP - General Nurse Practitioner 10/03/18 Special Procedures Tech Relationship Specialty Start Date End Date Essie Ryan [facility] PCP - General Nurse Practitioner 10/03/18 Special Procedures Tech Relationship Specialty Start Date End Date Essie Ryan NP [address] [place] [address] PCP - [facility] 12/25/23 Yuriy Martins MD [address] [place] [address] PCP - General Family Medicine 05/29/24 Essie Ryan NP [address] [place] [address] Nurse Practitioner Family Medicine 08/17/23 Special Procedures Tech Relationship Specialty Start Date End Date Essie Ryan NP [address] [place] [address] PCP - [facility] 12/25/23 Yuriy Martins MD [address] [place] [address] PCP - General Family Medicine 05/29/24 Essie Ryan NP [address] [place] [address] Nurse Practitioner Family Medicine 08/17/23 Special Procedures Tech Relationship Specialty Start Date End Date Essie Ryan NP [address] [place] [address] PCP - [facility] 12/25/23 Yuriy Martins MD [address] [place] [address] PCP - General Family Medicine 05/29/24 Essie Ryan NP [address] [place] [address] Nurse Practitioner Family Medicine 08/17/23 Special Procedures Tech Relationship Specialty Start Date End Date Essie Ryan, GRINDER SET UP OPERATOR SURFACE-MOTOR EQUIPMENT SERGEANT PCP - General Nurse Practitioner 10/03/18 Special Procedures Tech Relationship Specialty Start Date End Date Essie Ryan NP [address] [place] [address] PCP - [facility] 12/25/23 Yuriy Martins MD [address] [place] [address] PCP - General Family Medicine 05/29/24 Essie Ryan NP [address] [place] [address] Nurse Practitioner Family [facility] 08/17/23 Special Procedures Tech Relationship Specialty Start Date End Date Essie Ryan NP [address] [place] [address] PCP - [facility] 12/25/23 Yuriy Martins MD [address] [place] [address] PCP - General Family Medicine 05/29/24 Essie Ryan NP [address] [place] [address] Nurse Practitioner Family Medicine 08/17/23 Special Procedures Tech Relationship Specialty Start Date End Date Essie Ryan NP [address] [place] [address] PCP - [facility] 12/25/23 Yuriy Martins MD [address] [place] [address] PCP - General Family Medicine 05/29/24 Essie Ryan NP [address] [place] [address] Nurse Practitioner Family Medicine 08/17/23 FOR RECORDS [...] BE BASED ON THE PRIMARY CLINICAL RECORDS. [facility] [employer] [facility]. provides no warranty or guarantee of the accuracy or completeness of information in this document.
== END 2024-10-04 08:45 | disposition home or self-care (01) ==
LOC: MAMMO 08:44
PROVIDERS: PCP Nurse Practitioner; Visit Provider Nurse Practitioner
DX: Z12.31 Encounter for screening mammogram for malignant neoplasm of breast (principal); Z80.3 Family history of malignant neoplasm of breast; Z80.0 Family history of malignant neoplasm of digestive organs; Z80.8 Family history of malignant neoplasm of other organs or systems
CPT/HCPCS: 77063; 77067

== ENCOUNTER 2024-10-09 13:28 | Outpatient (OUT) | payer OTHER, SELFPAY ==
[2024-10-09 14:11] LABS: Basophils Absolute Auto 0.1 10^3/uL (0.0-0.1); Basophils Percent Auto 1.2 % (0.2-2.0); Eosinophils Absolute Auto 0.6 10^3/uL (0.0-0.7); Eosinophils Percent Auto 6.9 % (0.9-7.0); Hematocrit 38.5 % (36.0-48.0); Hemoglobin 12.6 g/dL (12.0-16.0); Immature Granulocytes Abs Auto 0.01 10^3/uL (0.00-0.03); Immature Granulocytes Pct Auto 0.1 % (0.0-0.5); Lymphocytes Absolute Auto 2.7 10^3/uL (1.2-3.8); Lymphocytes Percent Auto 33.4 % (20.5-60.0); Mean Corpuscular HGB Conc 32.7 g/dL (29.9-35.2); Mean Corpuscular Hemoglobin 28.4 pg (26.7-34.0); Mean Corpuscular Volume 86.7 fL (81.0-99.0); Mean Platelet Volume 10.6 fL (9.5-13.5); Monocytes Absolute Auto 0.6 10^3/uL (0.3-0.8); Monocytes Percent Auto 7.8 % (1.7-12.0); Neutrophils Absolute Auto 4.1 10^3/uL (1.4-6.5); Neutrophils Percent Auto 50.6 % (43.0-75.0); Platelet Count 270 10^3/uL (150-450); Red Blood Count 4.44 10^6/uL (4.20-5.40); Red Cell Distribution Width 13.1 % (11.0-15.0); White Blood Count 8.1 10^3/uL (4.0-11.0)
[2024-10-09 14:21] LABS: Anion Gap 11.1; BUN Creatinine Ratio 16.9; Calcium 9.2 mg/dL (8.5-10.1); Carbon Dioxide 26.8 mmol/L (21.0-32.0); Chloride 106 mmol/L (98-107); Estimated GFR (African America >60 (>=60 mL/min/1.73m^2); Estimated GFR (Non-African Ame >60 (>=60 mL/min/1.73m^2); Glucose 114 mg/dL (74-106); Potassium 3.9 mmol/L (3.5-5.1); Sodium 140 mmol/L (136-145)
[2024-10-09 14:29] LABS: INR 0.97; Partial Thromboplastin Time 24.2 sec (22.3-36.2); Prothrombin Time 10.3 sec (9.0-11.6)
== END 2024-10-09 13:29 | disposition home or self-care (01) ==
LOC: PST 13:29
PROVIDERS: PCP Nurse Practitioner; Visit Provider Urology
DX: Z01.810 Encounter for preprocedural cardiovascular examination (principal); Z01.812 Encounter for preprocedural laboratory examination; M25.552 Pain in left hip; N20.0 Calculus of kidney
CPT/HCPCS: 73502; 80048; 85025; 85610; 85730

== ENCOUNTER 2024-10-09 13:32 | Outpatient (OUT) | payer OTHER, SELFPAY ==
--- NOTE | 2024-10-09 14:10 | XR_ITS ---
The [address] [address] Patient Name: GAMAL FIGUEROA MRN: [id number] date: 1975 Sex: F Assigned Patient Location: [facility] Current Patient Location: [facility] Accession/Order Number: [id number] Exam Date: 10/09/2024 15:18 Report Date: 10/09/2024 15:19 At the request of: PAULINE BERNARDO NP Procedure: XR hip LT min 2V LEFT HIP - 2 views: CLINICAL HISTORY: Left Hip Pain COMPARISON: None FINDINGS: Mild degenerative changes of the left hip without acute bony process. XR/XR hip LT min 2V IMPRESSION: MILD DEGENERATIVE CHANGES OF THE LEFT HIP WITHOUT ACUTE BONY PROCESS.. Impression dictated by: Robby Lowe Jr., D.O.10/09/2024 3:19 PM Dictation Location: [place] [address] Electronically authenticated by: [id number] Date: 10/09/2024 15:19
== END 2024-10-09 13:33 | disposition home or self-care (01) ==
LOC: RAD 13:33
PROVIDERS: PCP Nurse Practitioner; Visit Provider Nurse Practitioner
DX: M25.552 Pain in left hip (principal)
CPT/HCPCS: 73502

== ENCOUNTER 2024-11-01 07:54 | Outpatient (OUT) | payer OTHER, SELFPAY ==
--- NOTE | 2024-11-01 08:00 | CA_ITS ---
Patient Name: GAMAL FIGUEROA MR#: [id number] : 1975 Exam Date: 11/01/2024 Ordering Doctor: CAN VALERA CNP ECHOCARDIOGRAM REPORT PROCEDURE: CA ECHO DOPPLER COMPLETE INDICATIONS: Dyspnea on exertion, palpitations, sleep apnea - inspire implant COMPARISON: None. DESCRIPTION: COMPLETE ECHOCARDIOGRAM Real-time transthoracic echocardiography with 2D, M-mode, spectral and color flow Doppler performed. QUALITY: Technical quality was good. LEFT VENTRICLE: Normal chamber size. Normal left ventricular wall thickness. Normal left ventricular systolic function without wall motion abnormalities, calculated left ventricular ejection fraction is 53%. LV EF: DIASTOLIC: Normal diastolic function ATRIAL SEPTUM: Visually appears intact. LEFT ATRIUM: Normal chamber size. RIGHT ATRIUM: Normal chamber size. RIGHT VENTRICLE: Normal chamber size. Normal right ventricular systolic function. TRICUSPID VALVE: Normal mobility and thickness. No stenosis with trivial regurgitation. No evidence of pulmonary hypertension.RVSP 24 mmHg MITRAL VALVE: Normal mobility and thickness. No evidence of mitral valve stenosis. There is no mitral annular calcification. Trivial mitral regurgitation. AORTIC VALVE: Normal trileaflet appearance. No visible sclerosis. Normal leaflet mobility. No evidence of aortic valve stenosis. No aortic regurgitation. AORTIC ROOT: Normal diameter and appearance. PULMONIC VALVE: Normal thickness and mobility. No stenosis. Mild regurgitation. PERICARDIUM: No evidence of pericardial effusion. IVC: Collapes with inspirations. IVC is normal in size. PLEURA: CONCLUSION: Normal left ventricle size, wall thickness, and systolic function without wall motion abnormalities, ejection fraction 53% Normal left ventricular diastolic function Normal right ventricle size and systolic function Normal right-sided pressures No significant valvular abnormalities Adult Echocardiography Procedure Report Left Ventricle LVEDD (3.7 - 5.6 cm): 4.81 cm LVESD (2.2 - 4.0 cm): 3.23 cm LVIVS thickness (0.6 - 1.2 cm): 0.80 cm LVPW thickness (0.5 - 1.0 cm): 0.90 cm e': 0.13 m/s E - e': 6.04 LVOT Max Gradient: 3.70 mm[Hg] LVOT Area (cm2): 0.96 m/s Peak Velocity (LVOT): 0.96 m/s Mean Velocity (LVOT): 0.67 m/s LVOT Diameter 2.02 cm Left Atrium LA Volume Index (2D A2C): 23.10 ml/m2 Left Atrium Systolic Dimension: 4.13 cm Mitral Valve MV E to A Ratio: 1.11 Mitral Valve A-Wave Peak Velocity: 0.73 m/s Mitral Valve E-Wave Peak Velocity: 0.81 m/s Right Ventricle Aorta AO Root Diam: 2.73 cm Aortic Valve AoV Area (Peak Luis): 2.26 cm2, 2.26 cm2 AoV Area (VTI): 2.20 cm2, 2.20 cm2 Peak Velocity(Antegrade Flow): 1.37 m/s Peak Gradient(Antegrade Flow): 7.46 mm[Hg] Mean Velocity(Antegrade Flow): 0.94 m/s Mean Gradient(Antegrade Flow): 4.05 mm[Hg] Velocity Time Integral: 29.85 cm Tricuspid Valve Peak Velocity (Regurgitant Flow): 1.97 m/s, 2.28 m/s Pulmonic Valve Mean Gradient: 1.74 mm[Hg] Mean Velocity: 0.62 m/s Peak Velocity: 0.98 m/s, 0.79 m/s Peak Gradient: 2.49 mm[Hg], 3.81 mm[Hg] Right Atrium Right Atrium Systolic Pressure: 20.63 ml, 20.63 ml Dictated by: Guanaco Draper MD on 11/01/2024 at 17:51 Approved by: Guanaco Draper MD on 11/01/2024 at 17:58
== END 2024-11-01 07:55 | disposition home or self-care (01) ==
LOC: CARD 07:54
PROVIDERS: PCP Nurse Practitioner; Visit Provider Nurse Practitioner Family
DX: R00.2 Palpitations (principal); I11.9 Hypertensive heart disease without heart failure; I49.1 Atrial premature depolarization; I49.3 Ventricular premature depolarization
CPT/HCPCS: 93306

== ENCOUNTER 2024-11-25 13:26 | Outpatient (OUT) | payer OTHER, SELFPAY ==
--- OUTSIDE RECORDS SUMMARY | 2024-11-11 10:30 | XMS_ITS | Encounter Summary ---
Author Organization [facility] Address [address] [place] [address] Care Team Providers Care Wastewater Superintendent Name Role Phone Essie Ryan MD Primary Care Provider [phone] Encounter Details Date Type Department Care Team (Late st Contact Info) Description 11/11/2024 10:30 AM EDT Office Visit [facility] [address] [place] [address] Milo Moran MD [address] [facility] [address] [facility] [place] [address] Primary hypertension (Primary Dx); Preop cardiovascular exam; Mixed hyperlipidemia; PAC (premature atrial contraction); PVC (premature ventricular contraction) Social History Tobacco Use Types Packs/Day Years Used Date Smoking Tobacco: Never Smokeless Tobacco: Never Alcohol Use Standard Drinks/Week Comments Not Currently 0 (1 standard drink = 0.6 oz pur e alcohol) IN Safety & Environment Answer Date Rec orded Fear of Current or Ex-Partner Not on file Emotionally Abused Not on file 08/17/2023 Physically Abused Not on file 08/17/2023 Sexually Abused Not on file 08/17/2023 Physically or Sexually Abused Not on file Sex and Gender Information Value Date Recorded Sex Assigned at Not on file Gender Identity Not on file Sexual Orientation Not on file documented as of this encounter Last Filed Vital Signs Vital Sign Reading Time Taken Comments Blood Pressure 156/94 11/11/2024 11:10 AM EDT Pulse 79 11/11/2024 11:10 AM EDT Temperature - - Respiratory Rate - - Oxygen Saturation 98% 11/11/2024 11:10 AM EDT Inhaled Oxygen Concentration - - Weight 88.9 kg (196 lb) 11/11/2024 11:10 AM EDT Height 152.4 cm (5') 11/11/2024 11:10 AM EDT Body Mass Index 38.28 11/11/2024 11:10 AM EDT documented in this encounter Progress Notes * Milo Moran MD - 11/11/2024 10:30 AM EDT Images from the original note were not included. [place] Cardiology - [facility] Subjective Stacey Sahu is a 49 y.o. year old female patient being seen for follow up echo and surgery clearance per Marla Monroe CNP. She is sill not having as much chest pain since the addition of diltiazem. She denies SOB and palpitations. Patient Active Problem List Diagnosis Bipolar depression [...] Gross hematuria Obese NIRMALA (obstructive sleep apnea) Mixed hyperlipidemia PAH (pulmonary artery hypertension) (CMS/HCC) Pleurisy Pulmonary HTN (CMS/HCC) Anxiety Arthritis of right hip Breast cancer screening COVID-19 Fluid level behind tympanic membrane of right ear Kidney stones Lumbar radiculopathy Multiple thyroid nodules Nocturia Chronic rhinitis Sensorineural hearing loss, bilateral Thyroid nodule URI, acute Contracture, left ankle Crohn's disease of both small and large intestine without complications (CMS/HCC) Herpes zoster without complication Pain of left heel Median nerve neuritis Dizziness and giddiness Needs flu shot Osteophyte of right hip Other bursal cyst, right hip S/P total right hip arthroplasty Degeneration of lumbar intervertebral disc Neurostimulator device in situ Family History Problem Relation Name Age of Onset Coronary artery disease Father Social History Tobacco Use Smoking status: Never Smokeless tobacco: Never Vaping Use Vaping status: Never Used Substance Use Topics Alcohol use: Not Currently Drug use: Never HPI Erlinda is seen in follow-up. This is the first time I am meeting her. She is to see other providersin our clinic. She is a 49-year-old woman. She was previously evaluated for various symptoms including chest pain,shortness of breath and palpitations. She has history of pulmonary hypertension and was on Letairis. She has prior remote history of Adipex use in 2011. She has obstructive sleep apnea and uses CPAP at night. Cardiac catheterization March 2012 showed normal coronary angiogram. She has history of PVCs and PACs seen on prior Holter monitor. At most recent visit in September 2024 she was started on diltiazem to help with palpitations. Also herblood pressure was elevated. An echocardiogram was ordered. She reports today that she has been doing much better on the Cardizem. Her blood pressure is still significantly elevated. She does have very infrequent chest discomfort symptoms. No significant shortness of breath with exertion. No leg edema. She does not feel palpitations. Review of Systems Cardiovascular: Positive for chest pain (improving). All other systems reviewed and are negative. Objective Visit Vitals BP (!) 156/94 (BP Location: Right wrist, Patient Position: Sitting) Pulse 79 Ht 1.524 m (5') Wt 88.9 kg (196 lb) SpO2 98% BMI 38.28 kg/m?? Smoking Status Never BSA 1.94 m?? Physical Exam Constitutional: Appearance: She is well-developed. She is obese. She is not ill-appearing. HENT: Head: Normocephalic and atraumatic. Nose: Nose normal. Eyes: General: No scleral icterus. Pupils: Pupils are equal, round, and reactive to light. Neck: Thyroid: No thyromegaly. Vascular: No JVD. Cardiovascular: Rate and Rhythm: Normal rate and regular rhythm. Pulses: Radial pulses are 2+ on the right side and 2+ on the left side. Heart sounds: Normal heart sounds. No murmur heard. No friction rub. No gallop. Pulmonary: Effort: Pulmonary effort is normal. No respiratory distress. Breath sounds: Normal breath sounds. No wheezing or rales. Chest: Chest wall: No tenderness. Abdominal: General: Bowel sounds are normal. There is no distension. Palpations: Abdomen is soft. Tenderness: There is no abdominal tenderness. Musculoskeletal: General: No swelling. Cervical back: Neck supple. Skin: General: Skin is warm and dry. Neurological: General: No focal deficit present. Mental Status: She is alert and oriented to person, place, and time. Psychiatric: Mood and Affect: Mood normal. Behavior: Behavior is cooperative. Judgment: Judgment normal. Allergies Allergies Allergen Reactions Penicillins Other and Unknown As a child Medications Current Outpatient Medications: ARIPiprazole (Abilify) 30 mg tablet, Take 30 mg by mouth in the morning., Disp: , Rfl: atorvastatin (Lipitor) 40 mg tablet, Take 1 tablet (40 mg) by mouth in the morning., Disp: , Rfl: busPIRone (Buspar) 7.5 mg tablet, Take 7.5 mg by mouth twice a day., Disp: , Rfl: cetirizine (ZyrTEC) 10 mg tablet, Take 10 mg by mouth if needed., Disp: , Rfl: dilTIAZem CD (Cardizem CD) 120 mg 24 hr capsule, Take 1 capsule (120 mg) by mouth in the morning., Disp: 30 capsule, Rfl: 11 ibuprofen 800 mg tablet, Take 800 mg by mouth every 6 (six) hours if needed., Disp: , Rfl: meloxicam (Mobic) 15 mg tablet, Take 15 mg by mouth in the morning., Disp: , Rfl: omeprazole (PriLOSEC) [address] capsule, Take 40 mg by mouth in the morning., Disp: , Rfl: tamsulosin (Flomax) 0.4 mg 24 hr capsule, Take 1 tablet by mouth if needed., Disp: , Rfl: losartan (Cozaar) 100 mg tablet, Take 1 tablet (100 mg) by mouth in the morning., Disp: 90 tablet, Rfl: 3 Recent Labs No visits with results within 6 Month(s) from this visit. Latest known visit with results is: [facility] Encounter on 05/01/2017 Component Date Value Ventricular Rate 05/01/2017 90 Atrial Rate 05/01/2017 90 TX Interval 05/01/2017 122 QRS DURATION 05/01/2017 98 QT Interval 05/01/2017 374 QTC CALCULATION(BEZET) 05/01/2017 457 P [place] 05/01/2017 46 R-[place] 05/01/2017 60 T Wave [place] 05/01/2017 37 Diagnosis 05/01/2017 Value:Normal sinus rhythm Nonspecific T wave abnormality Abnormal ECG When compared with ECG of 05/19/2015 Nonspecific T wave abnormality Anterolateral leads Confirmed by Andre NEGRETE, L.S. (2) on 05/02/2017 10:05:02 AM 08/28/2024 Hgb 12.8, plt 282 Cr 0.86, BUN 13, K 4.2, Na 140, eGFR >60, AST 16, ALT 14 Chol 214, trig 117, HDL 56, LDL 135 03/06/24 Liver function normal Chol 227, HDL [...] 175, HDL 44, LDL 163 TSH normal Blood testing 08/29/2024: Hemoglobin 12.8, platelets 282, potassium 4.2, BUN 13, creatinine 0.86, EGFR more than 60, LFTs normal, triglycerides 117, cholesterol 214, HDL 56, LDL 135. Blood testing 10/09/2024: Hemoglobin 12.6, platelets 270, potassium 3.9, BUN 14, creatinine 0.83, EGFR more than 60. Imaging and other tests Echocardiogram 11/01/2024: CONCLUSION: Normal left ventricle size, wall thickness, and systolic function without wall motion abnormalities, ejection fraction 53% Normal left ventricular diastolic function Normal right ventricle size and systolic function Normal right-sided pressures No significant valvular abnormalities ECG 10/03/2024: Normal sinus rhythm, normal ECG. Holter monitor 11/08/2022 - 11/13/2022: predominantly sinus rhythm with PACs and PVCs. No significant arrhythmias seen. Renal ultrasound 09/09/2024: Bilateral nephrolithiasis without hydronephrosis. ECHO (11/22/2022) Normal ventricular systolic function. LVEF 65%. Normal diastolic function. No significant valvular dysfunction. Normal right-sided pressures. EKG (11/08/2022): sinus rhythm ECHO (2016) Global [...] wave abnormality Anterolateral leads 05/13/2016 Echo - [place] Normal LV systolic function normal RV size/function No valve abnormality. RVSP 27mmHg 06/01/15 Echo Global left ventricular systolic function is normal (Visually estimated EF 55%). Concentric remodeling. Normal right ventricular systolic function. Unable to assess right sided pressures due to lack of tricuspid regurgitation. Mild pulmonary regurgitation Cardiac catheterization 04/25/2012: Normal coronary angiography. Normal left ventricular function with good contractility of all segments. No evidence of mitral regurgitation. Normal right and left filling pressures. Normal pulmonary arterial pressure and pulmonary vascular resistance. No evidence of aortic stenosis. Increased cardiac output and cardiac index with no evidence of intracardiac shunting. Assessment/Plan Diagnoses and all orders for this visit: Primary hypertension - losartan (Cozaar) 100 mg tablet; Take 1 tablet (100 mg) by mouth in the morning. - Comprehensive metabolic panel; Future Preop cardiovascular exam Mixed hyperlipidemia - Lipid panel; Future PAC (premature atrial contraction) PVC (premature ventricular contraction) 1. Hypertension: This is not controlled. I am going to add losartan 100 mg once daily. Continue Cardizem 120 mg once daily. I will check CMP in 1 month. 2. Hyperlipidemia: Continue current atorvastatin. I will check a follow-up lipid panel and liver enzymes in 1 month. 3. History of pulmonary hypertension, was on medication in the past but has been taken off of it: Ireviewed with her the results of the recent echocardiogram on 11/01/2024 that showed normal ventricular systolic function, no significant valvular abnormalities and normal right-sided pressures. I reassured her. I do not think that she needs any specific treatment for pulmonary hypertension. 4. Preoperative evaluation for nephrolithiasis surgery: She can proceed at low cardiac risk. 5. PACs and PVCs: Seem to be controlled on current Cardizem. Continue the same. I will plan on seeing her in follow-up in 6-month. Follow up in about 6 months (around 05/14/2025). Milo Moran MD documented in this encounter Plan of Treatment Scheduled Orders Name Type Priority Associated Diagnoses Orde r Schedule Comprehensive metabolic panel Lab Routine Primary hypertension Expected: 12/12/2024 (Approximate), Expires: 11/11/2025 Lipid panel Lab Routine Mixed hyperlipidemia Expected: 12/12/2024 (Approximate), Expires: 11/11/2025 documented as of this encounter Visit Diagnoses Diagnosis Primary hypertension- Primary Unspecified essential hypertension Preop cardiovascular exam Pre-operative cardiovascular examination Mixed hyperlipidemia PAC (premature atrial contraction) Supraventricular premature beats PVC (premature ventricular contraction) Other premature beats documented in this encounter Care Teams Wastewater Superintendent Relationship Specialty Start Date End Date Essie Ryan MD [address] [place] [address] PCP - General 08/29/23 documented as of this encounter
--- OUTSIDE RECORDS SUMMARY | 2024-11-25 13:29 | XMS_ITS | Encounter Summary ---
Author Organization [facility] tem Address [id number] [address] [place] [address] Care Team Providers Care Supervisor Hardboard Name Role Phone Essie Ryan APRN-SALESMAN/OWNER Primary Care Provider Encounter Details Date Type Department Care Team (Late st Contact Info) Description 05/01/2024 Telephone [facility] - [address], [address] [place] [phone] [place] [address] [place] [address] [address] [place] [address] Social History Tobacco Use Types Packs/Day Years Used Date Smoking Tobacco: Never Smokeless Tobacco: Never Alcohol Use Standard Drinks/Week Comments No 0 (1 standard drink = 0.6 oz pur e alcohol) Childcare Answer Date Recorded Childcare Unknown 12/05/2018 Employment Answer Date Recorded Employment Unknown 12/05/2018 Hunger Screening Answer Date Recorded Within the past 12 months we worried whether our food would run out before we got money to buy more. Never True 09/12/2023 Within the past 12 months th e food we bought just didn't last and we didn't have money to get more. Never True 09/12/2023 Purpose - Life Answer Date Recorded Purpose and direction in life Unknown Comments No Sex and Gender Information Value Date Recorded Sex Assigned at Not on file Legal Sex Female 11:26 AM EDT Gender Identity Not on file Sexual Orientation Not on file documented as of this encounter Miscellaneous Notes * Telephone Encounter - Leslie Gloria - 05/01/2024 1:57 PM EST Called and lm regarding surgery on 05/09/[address] Esquivel. Stated surgery time is at 10:30 am; arrive by 8:30 am. Nothing to eat or drink after midnight the night before surgery documented in this encounter Plan of Treatment Not on file documented as of this encounter Visit Diagnoses Not on filedocumented in this encounter Care Teams Supervisor Hardboard Relationship Specialty Start Date End Date Essie Ryan, LAY-SALESMAN/OWNER PCP - General Nurse Practitioner 10/03/18 documented as of this encounter
--- OUTSIDE RECORDS SUMMARY | 2024-11-25 13:29 | XMS_ITS | Encounter Summary ---
Author Organization [facility] Address [address] [place] [address] Care Team Providers Care Access Assoc Name Role Phone Yuriy Martins MD Primary Care Provider [phone] Essie Ryan TRESTLE MECHANIC Unavailable [phone] Essie Ryan TRESTLE MECHANIC Unavailable [phone] Yuriy Martins MD Primary Care Provider [phone] Encounter Details Date Type Department Care Team (Late st Contact Info) Description 11/08/2023 Orders Only [facility] [address] [place] [address] Shaikh Dutton MD [address] [place] [address] Social History Tobacco Use Types Packs/Day Years Used Date Smoking Tobacco: Never Passive Smoke Exposure: Never Smokeless Tobacco: Never Alcohol Use Standard Drinks/Week Comments Never 0 (1 standard drink = 0.6 oz pure alcohol) caffeine intake: 1-2 cups per day Humiliation, Afraid, Rape, and Kick questionnair e Answer Date Recorded Within the last year, have y ou been afraid of your partner or ex-partner? Patient declined 06/14/2023 Within the last year, have y ou been humiliated or emotionally abused in other ways by your partner or ex-partner? Patient declined 06/14/2023 Within the last year, have y ou been kicked, hit, slapped, or otherwise physically hurt by your partner or ex-partner? Patient declined 06/14/2023 Within the last year, have y ou been raped or forced to have any kind of sexual activity by your partner or ex-partner? Patient declined 06/14/2023 Social Connection and Isolation Panel [NHANES] A nswer Date Recorded In a typical week, how many times do you talk on the phone with family, friends, or neighbors? Patient declined 06/14/2023 How often do you get togethe r with friends or relatives? Patient declined 06/14/2023 How often do you attend denominational or mormonism serv ices? Patient declined 06/14/2023 Do you belong to any clubs o r organizations such as denominational groups, unions, fraternal or athletic groups, or school groups? Patient declined 06/14/2023 How often do you attend meet ings of the clubs or organizations you belong to? Patient declined 06/14/2023 Are you , , di vorced, , never , or living with a partner? 06/14/2023 AUDIT-C Answer Date Recorded Q1: How often do you have a drink containing alcohol? Never 06/14/2023 Q2: How many drinks containi ng alcohol do you have on a typical day when you are drinking? Patient does not drink Q3: How often do you have si x or more drinks on one occasion? Never 06/14/2023 Overall Financial Resource Strain (CARDIA) Answe r Date Recorded How hard is it for you to pa y for the very basics like food, housing, medical care, and heating? Patient declined 06/14/2023 PHQ-2 Answer Date Recorded Patient Health Questionnaire-2 Score 0 11/08/2023 [facility] - Occupational Stress Questionnaire Answer Date Recorded Do you feel stress - tense, restless, nervous, or anxious, or unable to sleep at night because your mind is troubled all the time - these days? Patient declined 06/14/2023 Exercise Vital Sign Answer Date Recorde d On average, how many days pe r week do you engage in moderate to strenuous exercise (like a brisk walk)? 2 days On average, how many minutes do you engage in exercise at this level? Patient declined 06/14/2023 Hunger Vital Sign Answer Date Recorded Within the past 12 months, y ou worried that your food would run out before you got the money to buy more. Never true 06/14/20 23 Within the past 12 months, t he food you bought just didn't last and you didn't have money to get more. Never true 06/14/2023 PRAPARE - Transportation Answer Date Re corded In the past 12 months, has l ack of transportation kept you from medical appointments or from getting medications? No 05/27 In the past 12 months, has l ack of transportation kept you from meetings, work, or from getting things needed for daily living? No 06/14/2023 Housing Stability Vital Sign Answer Williams e Recorded In the last 12 months, was t here a time when you were not able to pay the mortgage or rent on time? No 06/14/2023 Number of Places Lived in the Last Year Not on f ile 06/14/2023 In the last 12 months, was t here a time when you did not have a steady place to sleep or slept in a fpc (including now)? No 06/14/2023 Comments Unknown Sex and Gender Information Value Date Recorded Sex Assigned at Not on file Legal Sex Female 7:01 PM EDT Gender Identity Not on file Sexual Orientation Not on file documented as of this encounter Functional Status * Over the past 2 weeks, how often have you been bothered by any of the following problems? Question Answer Date of Assessment Author Little interest or pleasure in doing things Not at all 11/08/2023 3:54 PM EDT Kyle Parekh M A Feeling down, depressed, or hopeless Not at all 11/08/2023 3:54 PM EDT Kyle Parekh M A Patient Health Questionnaire -2 Score 0 11/08/2023 3:54 PM EDT Kyle Parekh M A documented as of this encounter Plan of Treatment Upcoming Encounters Date Type Department Care Team (Late st Contact Info) Description 01/01/2025 1:00 PM EDT Office Visit [facility] [address] [place] [address] Essie Ryan NP [address] [place] [phone] documented as of this encounter Visit Diagnoses Not on filedocumented in this encounter Care Teams Access Assoc Relationship Specialty Start Date End Date Yuriy Martins MD [address] [place] [phone] PCP - General Family Medicine 08/17/23 04/09/24 Essie Ryan, NETO [address] [place] [address] PCP - [facility] 12/25/23 Yuriy Martins MD [address] [place] [address] PCP - General Family Medicine 05/29/24 Essie Ryan, TRESTLE MECHANIC [address] [place] [address] Nurse Practitioner Family Medicine 08/17/23 documented as of this encounter
--- OUTSIDE RECORDS SUMMARY | 2024-11-25 13:29 | XMS_ITS | Encounter Summary ---
Author Organization [facility] Address [address] [place] [address] Care Team Providers Care Mingler Operator Name Role Phone Yuriy Martins MD Primary Care Provider [phone] Essie Ryan PRODUCT SUPPORT CONSULTANT Unavailable [phone] Essie Ryan PRODUCT SUPPORT CONSULTANT Unavailable [phone] Yuriy Martins MD Primary Care Provider [phone] Encounter Details Date Type Department Care Team (Late st Contact Info) Description 08/31/2023 Orders Only [facility] [address] [place] [address] Social History Tobacco Use Types Packs/Day Years [...] How often do you attend denominational or baptist serv ices? Patient declined 06/14/2023 Do you [...] Answer Date Recorded Patient Health Questionnaire-2 Score 2 07/13/2023 [facility] - Occupational [...] place to sleep or slept in a detention (including now)? No 06/14/2023 Comments Unknown Sex and Gender Information Value Date Recorded Sex Assigned at Not on file Legal Sex Female 7:01 PM EDT Gender Identity Not on file Sexual Orientation Not on file documented as of this encounter Plan of Treatment Upcoming Encounters Date Type Department Care Team (Late st Contact Info) Description 01/01/2025 1:00 PM EDT Office Visit [facility] [address] [place] [address] Essie Ryan NP [address] [place] [phone] documented as of this encounter Procedures Procedure Name Priority Date/Time Associated Diagnosis Comments XR HIP 2-3 VIEWS RIGHT + PELVIS Routine 08/30/2023 8:52 AM EST documented in this encounter Results * XR HIP 2-3 VIEWS RIGHT + PELVIS (08/30/2023 8:52 AM EST) Anatomical Region Laterality Modality Radiographic Francheska ging [facility] IMG XR PROCEDURES Final Result documented in this encounter Visit Diagnoses Not on filedocumented in this encounter Care Teams Mingler Operator Relationship Specialty Start Date End Date Yuriy Martins MD [address] [place] [address] PCP - General Family Medicine 08/17/23 04/09/24 Essie Ryan NP [address] [place] [address] PCP - [facility] 12/25/23 Yuriy Martins MD [address] [place] [address] PCP - General Family Medicine 05/29/24 Essie Ryan NP [address] [place] [phone] Nurse Practitioner Family Medicine 08/17/23 documented as of this encounter
--- OUTSIDE RECORDS SUMMARY | 2024-11-25 13:29 | XMS_ITS | Clinical Summary ---
Author Organization [facility] Address [address] [place], [place] [address] Care Team Providers Care Svp Operations Name Role Phone Essie Ryan CNP Primary Care Provider Adán Torres DO Unavailable [phone] Dany ARDON MD, Alexis Ludowici Unavailable + Angel Delgado DO Unavailable [phone] Allergies Active Allergy Reactions Criticality Noted Date Comments Penicillins Unknown 07/27/2016 Medications Omeprazole 40 mg capsule Take 40 mg by mouth once daily. Active acetaminophen (TYLENOL) 325 mg tablet Take 2 tablets by mouth every 6 hours as needed. 40 tablet 7 Active meloxicam (MOBIC) 15 mg tablet Take 15 mg by mouth once daily. 2 Active ARIPiprazole (ABILIFY) 30 mg tablet Take 1 tablet by mouth once daily. Active pantoprazole DR (PROTONIX) 20 mg tablet Take 1 tablet by mouth once daily for 14 days. 14 tablet 07/01/2024 3:16 PM EST 5 Active docusate sodium (COLACE) 100 mg capsule Take 1 capsule by mouth two times a day. Take colace while taking narcotics to decrease your risk of constipation 60 capsule 07/01/2024 3:16 PM EST 5 Active aspirin, enteric coated (ECOTRIN LOW STRENGTH) 81 mg EC tablet Take 1 tablet by mouth two times a day for 28 days. 56 tablet 07/01/2024 3:16 PM EST 5 Active naloxone 4 mg/actuation nasal spray (NARCAN) Use 1 spray in one nostril as needed for overdose. May repeat every 2 to 3 min in alternating nostrils until medical assistance is available 2 Each 07/01/2024 3:16 PM EST 5 Active Active Problems Problem Noted Date Diagnosed Date S/P total right hip arthroplasty 07/01/2024 BMI 37.0-37.9, adult 06/05/2024 Assessment & Plan (06/05/2024 10:30 AM EST): Assessment: diet and exercise encouraged Enterolith of small intestine 12/14/2020 Bipolar disease, chronic 12/14/2020 Other hyperlipidemia 12/14/2020 Assessment & Plan (06/05/2024 10:30 AM EST): Assessment: diet controlled, stable Follows up with PCP (spontaneous vaginal delivery) x 4 7 Crohn's disease without comp lication (HCC) [id number] 07/27/2016 Pulmonary HTN Assessment & Plan (06/05/2024 10:19 AM EST): Assessment: EF 65% per ECHO 11/22/22 Follows up with cardiology, last office visit 03/06/24 Asymptomatic Obese NIRMALA (obstructive sleep apnea) Assessment & Plan (06/05/2024 10:07 AM EST): Assessment: non-compliant with CPAP GERD (gastroesophageal reflux disease) Assessment & Plan (06/05/2024 10:07 AM EST): Assessment: managed with med, stable Follows up with PCP Crohn's disease of intestine Assessment & Plan (12/16/2020 11:12 AM EDT): ASSESSMENT: -this is a 45 y/o female patient with a past medical history of Crohn's disease, bipolar disease, and obesity s/p ileocecectomy in 2001 who is presenting with abdominal pain and diarrhea. [facility] consulted for above PLAN: -no surgical intervention needed -patient improved following colonoscopy -recommend management per GI -can F/U with [facility] as needed as outpatient -okay for discharge from [facility] standpoint; rest of care/dispo per primary team -[facility] to sign off Patient seen and examined with [facility] staff Dr. Yong Rodriguez Resolved Problems Problem Noted Date Diagnosed Date Resolved Date Generalized abdominal pain 12/14/2020 0 12/16/2020 Encounters Date Type Department Care Team Description 09/30/2024 Get Medical Advice Orthopaedics [address] [place] [address] Yanni Spring MD Visit 09/30/2024 Patient Msg Orthopaedics [address] [id number] Yanni Spring MD Appointment Request 09/30/2024 Patient Msg Orthopaedics [address] [place] [address] Yanni Spring MD Appointment Request 09/24/2024 Travel 09/17/2024 Get Medical Advice Orthopaedics [address] [place] [address] Yanni Spring MD Medicine from Last 3 Months Family History Medical History Relation Comments No Known Problems Daughter 1 No Known Problems Daughter 2 Cancer Father esophageal, lung Diabetes Father Hypertension Father Ischemic Heart Disease Father Breast Cancer Mother No Known Problems Son 1 No Known Problems Son 2 Relation Status Comments Daughter 1 Alive Daughter 2 Alive Father Alive Mother Alive Son 1 Alive Son 2 Alive Social History Tobacco Use Types Packs/Day Years Used Date Smoking Tobacco: Never Smokeless Tobacco: Never Tobacco Cessation:Counseling Given: Not Answered Alcohol Use Standard Drinks/Week Comments No 0 (1 standard drink = 0.6 oz pur e alcohol) [facility] Utilities Answer Date Recorded In the past 12 months has e electric, gas, oil, or water company threatened to shut off services in your home? No 07/01/2024 PHQ-2 Answer Date Recorded PHQ-2 score 0 09/24/2024 Hunger Vital Sign Answer Date Recorded Within the past 12 months, y ou worried that your food would run out before you got the money to buy more. Never true 07/01/19 25 Within the past 12 months, t he food you bought just didn't last and you didn't have money to get more. Never true 07/01/2024 PRAPARE - Transportation Answer Date Re corded In the past 12 months, has l ack of transportation kept you from medical appointments or from getting medications? No 11/2024 In the past 12 months, has l ack of transportation kept you from meetings, work, or from getting things needed for daily living? No 07/01/2024 Housing Stability Vital Sign Answer Williams e Recorded In the last 12 months, was t here a time when you were not able to pay the mortgage or rent on time? No 07/01/2024 Number of Times Moved in the Last Year Not on fi le 07/01/2024 At any time in the past 12 m [facility], were you homeless or living in a fci (including now)? No 07/01/2024 Area Deprivation Index Answer Date Erik rded National Score (1-100), lower number is lower ri sk 93 03/15/2024 State Score (1-10), lower number is lower risk 9 03/15/2024 Data from: https://www.neighborhoodatlas.medicine.[facility].edu/. Last address used for calculation [address] 03/15/2024 Comments No Sex and Gender Information Value Date Recorded Sex Assigned at Not on file Legal Sex Female 12:08 PM EST Gender Identity Not on file Sexual Orientation Not on file Last Filed Vital Signs Vital Sign Reading Time Taken Comments Blood Pressure 103/60 07/01/2024 3:23 PM EST Pulse 79 07/01/2024 3:23 PM EST Temperature 36.3 C (97.3 F) 07/01/2024 3:23 PM EST Respiratory Rate 16 07/01/2024 11:00 AM EST Oxygen Saturation 98% 07/01/2024 3:23 PM EST Inhaled Oxygen Concentration - - Weight 88.5 kg (195 lb) 07/01/2024 11:54 AM EST Height 149.9 cm (4' 11 ) 07/01/2024 11:54 AM EST Body Mass Index 39.39 07/01/2024 11:54 AM EST Plan of Treatment Health Maintenance Due Date Last Done Comments Anxiety Screening 1994 Depression Screening 1994 HIV Screening 1994 DTaP,Tdap,Td Vaccine (1 - Tdap) 1995 Hepatitis B Vaccine (1 of 3 - 19+ 3-dose series) 1995 Cervical Cancer Screening 1997 CT Colonography 2021 Cologuard (FIT-DNA) 2021 Fecal Occult Blood 2021 Lipid Screening 2021 Sigmoidoscopy 2021 Colonoscopy 12/15/2021 12/15/2020 Colorectal Cancer Screening 12/15/2021 Mammogram Screening 08/04/2023 08/04/2022, 3 Covid-19 Vaccine (2023-2 5 season) 2024 Influenza Vaccine (Season Ended) 2025 05/03/20 12 Diabetes Screening 06/05/2027 06/05/2024, 0 12/14/2020, 12/13/2020, Additional history exists Hepatitis C Screening Completed 12/12/2020 Medical Devices Implanted Type Area Manager Fiber Device Identifier Shelf Expiration Date Model / Serial / Lot Insert Acetabular 32mm 0d D Hip X3 Trident Sterile Latex Free - [id number] Implanted:Qty: 1 on 07/01/[address] [facility] Joint - Hip Right: Bone - Hip AYDEE 11/28/2028 [id number] / / [id number] Shell Trident Ii 48mm D Tritanium Acetabular 3 Screw Hole Cluster Sterile - [id number] Implanted:Qty: 1 on 07/01/[address] [facility] Joint - Hip Right: Bone - Hip [employer] 04/11/2029 [id number] / / [id number] Stem Femoral 8x99mm Size 2 High Insignia Collared - [id number] Implanted:Qty: 1 on 07/01/[address] [facility] Joint - Hip Right: Bone - Hip AYDEE 01/31/2029 [id number] / / [id number] Head V40 32mm -4mm Offset Taper Biolox Delta Femoral Hip - [id number] Implanted:Qty: 1 on 07/01/[address] [facility] Joint - Hip Right: Bone - Hip [employer] 12/25/2028 [id number] / / [id number] Screw Trident Ii 6.5mm 30mm Bone Low Profile Hexagonal Sterile - [id number] Implanted:Qty: 1 on 07/01/[address] [facility] Screw Right: Bone - Hip [employer] 02/08/2029 [id number] / / [id number] Procedures Procedure Name Priority Date/Time Associated Diagnosis Comments BASIC METABOLIC PANEL Routine 06/05/2024 10:59 AM EST Pre-op evaluation COLONOSCOPY GEN ANES Routine 12/15/2020 7:19 AM EDT *HEP C AB Routine 12/12/2020 10:19 PM EDT from Last 3 Months or Most Recently Relevant to Health Maintenance Results * BASIC METABOLIC PANEL (06/05/2024 10:59 AM EST) Glucose 88 74 - 99 mg/dL 06/06/2024 10:14 AM EST [facility] Comment: The [place] Diabetes Association (ADA) provides guidance for cutoff [...] Standards of Medical Care in Diabetes 2016, [place] [employer] Association. Diabetes Care. 2016.39(Suppl 1). BUN 17 7 - 21 mg/dL 06/06/2024 10:14 AM EST [facility] Creatinine 0.70 0.58 - 0.96 mg/dL 06/06/2024 10:14 AM [facility] Sodium 140 136 - 144 mmol/L 06/06/2024 10:14 AM [facility] Potassium 4.9 3.7 - 5.1 mmol/L 06/06/2024 10:14 AM [facility] Chloride 104 98 - 107 mmol/L 06/06/2024 10:14 AM EST [facility] CO2 25 22 - 30 mmol/L 06/06/2024 10:14 AM EST [facility] Anion Gap 11 8 - 15 mmol/L 06/06/2024 10:14 AM EST [facility] Calcium, Total 9.6 8.5 - 10.2 mg/dL 06/06/2024 10:14 AM EST [facility] Estimated Glomerular Filtration Rate 108 >=60 mL/min/1.7 3m 06/06/2024 10:14 AM EST [facility] Comment:Estimated Glomerular Filtration Rate (eGFR) is calculated using the 2020 CKD-EPI creatinine equation. This equation utilizes serum creatinine, sex, and age as parameters. The creatinine assay has traceable calibration to isotope dilution- mass spectrometry. Refer to KDIGO guidelines for clinical interpretation. In patients with unstable renal function, e.g. those with acute kidney injury, the eGFR may not accurately reflect actual GFR. Blood BLOOD SPECIMEN / Unknown Venipuncture / Unknown 06/05/2024 10:59 AM EST 06/05/2024 10:59 AM EST Negrita Tejeda CHIEF OPERATOR REFORMER.[facility] Naomi l Result [facility] [address] [place] [address], * COLONOSCOPY GEN ANES (12/15/2020 7:19 AM EDT) Director Of Institutional Research Q3 Patient Name: Stacey Sahu Procedure Date: 12/15/2020 7:19 AM Date of : 1975 Admit Type: Outpatient Age: 45 Gender: Female Note Status: Finalized Attending MD: La Zazueta MD Procedure: Colonoscopy Indications: Disease activity assessment of Crohn's disease of the small bowel Providers: La Zazueta MD, Lady Alanis Mckeon MD (Fellow) Patient Profile: This is a 45 year old female. Refer to note in patient chart for documentation of history and physical. Last Colonoscopy: within the past 3 years. Referring Physician: Medicines: Monitored Anesthesia Care Complications: No immediate complications. Requesting Provider: Procedure: Pre-Anesthesia Assessment: - Prior to the procedure, a History and Physical was performed, and patient medications and allergies were reviewed. The patient's tolerance of previous anesthesia was also reviewed. The risks and benefits of the procedure and the sedation options and risks were discussed with the patient. All questions were answered, and informed consent was obtained. Prior Anticoagulants: The patient has taken no previous anticoagulant or antiplatelet agents. ASA Grade Assessment: II - A patient with mild systemic disease. After reviewing the risks and benefits, the patient was deemed in satisfactory condition to undergo the procedure. After I obtained informed consent, the scope was passed under direct vision. Throughout the procedure, the patient's blood pressure, pulse, and oxygen saturations were monitored continuously. The Colonoscope was introduced through the anus and advanced to the terminal ileum. The colonoscopy was performed without difficulty. The patient tolerated the procedure well. The quality of the bowel preparation was fair. The terminal ileum was photographed. Moderate Sedation: MAC anesthesia was administered by the anesthesia team. Findings: The perianal and digital rectal examinations were normal. Two sessile polyps were found in the recto-sigmoid colon. The polyps were 2 mm in size. These were biopsied with a cold forceps for histology. There was evidence of a prior end-to-end ileo-colonic anastomosis in the ascending colon. This was patent and was characterized by healthy appearing mucosa. The anastomosis was traversed. The chip-terminal ileum contained a few scattered non-bleeding erosions. No stigmata of recent bleeding were seen. Biopsies were taken with a cold forceps for histology. The chip-terminal ileum contained a foreign body (fecolith 1cm). Biopsies were taken with a cold forceps in the entire colon for histology. Impression: - Preparation of the colon was fair. - Two 2 mm polyps at the recto-sigmoid colon. Biopsied. - Patent end-to-end ileo-colonic anastomosis, characterized by healthy appearing mucosa. - A few erosions in the chip-terminal ileum. Biopsied. - Presence of ileal foreign body. - Biopsies were taken with a cold forceps for histology in the entire colon. Estimated Blood Loss: Estimated blood loss: none. Recommendation: - Return patient to hospital tom for ongoing care. - Resume previous diet. - Continue present medications. - Await pathology results. - Patient has a contact number available for emergencies. The signs and symptoms of potential delayed complications were discussed with the patient. Return to normal activities tomorrow. Written discharge instructions were provided to the patient. - Repeat colonoscopy is recommended. The colonoscopy date will be determined after pathology results from today's exam become available for review. Procedure Code(s): --- Professional --- 51863, Colonoscopy, flexible; with biopsy, single or multiple CPT copyright 2019 [place] [employer]. All rights reserved. Attending Participation: I was present and participated during the entire procedure, including non-boyer portions. Scope In: 7:54:54 AM Scope Out: 8:48:55 AM MD La Alberto MD 12/15/2020 8:57:20 AM This report has been signed electronically by La Zazueta MD Number of Addenda: 0 Note Initiated On: 12/15/2020 7:19 AM [facility] Anatomical Region Laterality Modality Other 12/15/2020 7:19 AM EDT us Vania Jackson MD [facility] Final Re sult * HEP REMOTE PANEL BL (12/12/2020 10:19 PM EDT) Hep B Core Ab, Total Negative Negative 12/13/2020 11:17 AM EDT [facility] Hep C Antibody IA Negative Negative 12/13/2020 11:18 AM EDT [facility] HBsAg Negative Negative 12/13/2020 11:18 AM EDT [facility] Hep B Surface Ab, Qual Negative Negative 12/13/2020 11:18 AM EDT [facility] Comment:NEGATIVE Blood BLOOD SPECIMEN / Unknown 12/12/2020 10:19 PM EDT 12/12/2020 10:20 PM EDT Vania Jackson MD LABORATORY Final Resu lt [facility] [address] [place] [address] [facility] [address] [place] [address] from Last 3 Months or Most Recently Relevant to Health Maintenance Insurance LATRELL JACOB Care Teams Svp Operations Relationship Specialty Start Date End Date Essie Ryan CNP PCP - General Family Medicine 07/22/16 Adán Torres DO Obstetrics 07/22/16 Alexis Saenz II, MD [address] [place] [address] Referring Orthopedics 12/13/21 Angel Delgado DO [address] [place] [address] Referring Orthopedics 03/08/24
--- OUTSIDE RECORDS SUMMARY | 2024-11-25 13:29 | XMS_ITS | Encounter Summary ---
Author Organization [facility] Address [address] [place], [place] [address] Care Team Providers Care Criminal Justice Department Chair Name Role Phone Charlimataishwarya Essie Geiger CNP Primary Care Provider [phone] Adán Torres DO Unavailable [phone] Dany ARDON MD, [facility] Unavailable + Angel Delgado DO Unavailable [phone] Source Comments In the event this information is protected by the Federal Confidentiality of Alcohol and Drug AbusePatient Records regulations: The Federal rules restrict any use of the information to criminally investigate or prosecute any alcohol or drug abuse patient.[facility] Encounter Details Date Type Department Care Team (Late st Contact Info) Description 05/24/2024 Patient Msg Pre Anesthesia [address] [place] [address] Provider, [facility] Appointment Social History Tobacco Use Types Packs/Day Years Used Date Smoking Tobacco: Never Smokeless Tobacco: Never Alcohol Use Standard Drinks/Week Comments No 0 (1 standard drink = 0.6 oz pur e alcohol) PHQ-2 Answer Date Recorded PHQ-2 score 0 04/12/2024 Area Deprivation Index Answer Date Erik rded National Score (1-100), lower number is lower ri sk 93 03/15/2024 State Score (1-10), lower number is lower risk 9 03/15/2024 Data from: https://www.neighborhoodatlas.medicine.[facility]/. Last address used for calculation [address] 03/15/2024 Comments No Sex and Gender Information Value Date Recorded Sex Assigned at Not on file Legal Sex Female 12:08 PM EST Gender Identity Not on file Sexual Orientation Not on file documented as of this encounter Functional Status * Are you deaf or do you have serious difficulty hearing? Answer Date of Assessment Author No 12/16/2020 1:10 PM EDT Meg Maldonado i, RN * Are you blind or do you have serious difficulty seeing, even when wearing glasses? Answer Date of Assessment Author No 12/16/2020 1:10 PM Meg Burrell i, RN * Do you have serious difficulty walking or climbing stairs? Answer Date of Assessment Author No 12/16/2020 1:10 PM EDT Meg Maldonado i, RN * Do you have difficulty dressing or bathing? Answer Date of Assessment Author No 12/16/2020 1:10 PM Meg Burrell i, RN * Because of a physical, mental, or emotional condition, do you have difficulty doing errands alone such as visiting a doctor's office or shopping? Answer Date of Assessment Author No 12/16/2020 1:10 PM Meg Burrell i, RN documented as of this encounter Mental Status * Because of a physical, mental, or emotional condition, do you have serious difficulty concentrating, remembering, or making decisions? Answer Entry Date Author No 12/16/2020 1:10 PM Meg Burrell i, RN documented in this encounter Plan of Treatment Not on file documented as of this encounter Visit Diagnoses Not on filedocumented in this encounter Care Teams Criminal Justice Department Chair Relationship Specialty Start Date End Date Essie Ryan, MONUMENT CARVER PCP - General Family Medicine 07/22/16 Adán Torres DO Obstetrics 07/22/16 Alexis Saenz II, MD [address] [place] [address] Referring Orthopedics 12/13/21 Angel Delgado DO [address] [place] [address] Referring Orthopedics 03/08/24 documented as of this encounter
--- OUTSIDE RECORDS SUMMARY | 2024-11-25 13:29 | XMS_ITS | Encounter Summary ---
Author Organization [facility] Address [address] [place], [place] [address] Care Team Providers Care Battery Starter Name Role Phone CharliEssie ha Fely BAH Primary Care Provider Adán Torres DO Unavailable [phone] Dany ARDON MD, [place] Unavailable + Angel Delgado DO Unavailable [phone] Source Comments In the event this information is protected by the Federal Confidentiality of Alcohol and Drug AbusePatient Records regulations: The Federal rules restrict any use of the information to criminally investigate or prosecute any alcohol or drug abuse patient.[facility] Encounter Details Date Type Department Care Team (Late st Contact Info) Description 03/20/2024 Patient Msg Orthopaedic Surgery [facility] [address] [place] [address] Yanni Spring MD [address] [place] [address] Appointment Request Social History Tobacco Use Types Packs/Day Years Used Date Smoking Tobacco: Never Smokeless Tobacco: Never Alcohol Use Standard Drinks/Week Comments No 0 (1 standard drink = 0.6 oz pur e alcohol) PHQ-2 Answer Date Recorded PHQ-2 score 0 03/12/2024 Area Deprivation Index Answer Date Erik rded National Score (1-100), lower number is lower ri sk 93 03/15/2024 State Score (1-10), lower number is lower risk 9 03/15/2024 Data from: https://www.neighborhoodatlas.medicine.[facility]/. Last address used for calculation [address] [...] Maldonado i, RN * Do you have serious difficulty walking or climbing stairs? Answer Date of Assessment Author No 12/16/2020 1:10 PM Meg Burrell i, RN * Do you have difficulty dressing or bathing? Answer Date of Assessment Author No 12/16/2020 1:10 PM EDT Meg Maldonado i, RN * Because of a physical, mental, or emotional condition, do you have difficulty doing errands alone such as visiting a doctor's office or shopping? Answer Date of Assessment Author No 12/16/2020 1:10 PM EDT Meg Maldonado i, RN documented as of this encounter [...] on filedocumented in this encounter Care Teams Battery Starter Relationship Specialty Start Date End Date Essie Ryan, MINE SAFETY ENGINEER PCP - General Family Medicine 07/22/16 Adán Torres DO Obstetrics 07/22/16 Alexis Saenz II, MD [facility] [place] [address] Referring Orthopedics 12/13/21 Angel Delgado DO [address] [place] [address] Referring Orthopedics 03/08/24 documented as of this encounter
--- OUTSIDE RECORDS SUMMARY | 2024-11-25 13:29 | XMS_ITS | Encounter Summary ---
Author Organization [facility] Address [address] [place] [address] Care Team Providers Care Salesforce Developer Name Role Phone Yuriy Martins MD Primary Care Provider [phone] Essie Ryan NP Unavailable [phone] Essie Ryan NP Unavailable [phone] Yuriy Martnis MD Primary Care Provider [phone] Encounter Details Date Type Department Care Team (Late st Contact Info) Description 11/22/2023 Orders Only [facility] [address] [place] [address] Essie Ryan NP [address] [place] [address] Social History Tobacco Use Types Packs/Day Years [...] declined 06/14/2023 How often do you attend alevism or yazidism serv ices? Patient declined 06/14/2023 Do you belong to any clubs o r organizations such as alevism groups, unions, fraternal or athletic groups, or [...] Recorded Patient Health Questionnaire-2 Score 0 11/08/2023 [facility] - Occupational [...] place to sleep or slept in a longterm (including now)? No 06/14/2023 Comments Unknown Sex and Gender Information Value Date Recorded Sex Assigned at Not on file Legal Sex Female 7:01 PM EDT Gender Identity Not on file Sexual Orientation Not on file documented as of this encounter Plan of Treatment Upcoming Encounters Date Type Department Care Team (Late st Contact Info) Description 01/01/2025 1:00 PM EDT [facility] [address] [place] [address] Essie Ryan NP [address] [place] [address] documented as of this encounter Procedures Procedure Name Priority Date/Time Associated Diagnosis Comments XR FOOT 3+ VIEWS LEFT Routine 11/22/2023 8:39 AM EDT documented in this encounter Results * XR foot 3+ views left (11/22/2023 8:39 AM EDT) Anatomical Region Laterality Modality Lower Extremities, Foot Left Radiogra phic Imaging us Essie Aichholz SUPERVISOR METAL PLACING IMG XR PROCEDURES Final Result documented in this encounter Visit Diagnoses Not on filedocumented in this encounter Care Teams Salesforce Developer Relationship Specialty Start Date End Date Yuriy Martins MD [address] [place] [address] PCP - General Family Medicine 08/17/23 04/09/24 Essie Ryan NP [address] [place] [address] PCP - [facility] 12/25/23 Yuriy Martins MD [address] [place] [address] PCP - General Family Medicine 05/29/24 Essie Ryan NP [address] [place] [address] Nurse Practitioner Family Medicine 08/17/23 documented as of this encounter
--- OUTSIDE RECORDS SUMMARY | 2024-11-25 13:29 | XMS_ITS | Clinical Summary ---
Author Organization [email or web address] tem Address [id number] [address] [place] [address] Care Team Providers Care Child Care Provider Name Role Phone Shelby Essie Dolan APRN-SENIOR QA TESTER Primary Care Provider Allergies Active Allergy Reactions Criticality Noted Date Comments Penicillins Fever Low 10/03/2018 As a child Medications * This document contains information received from the source organization and may not represent a complete record from that organization. omeprazole (PriLOSEC) 40 mg capsuleIndicat ions:gastroeso phageal reflux disease Take 1 capsule (40 mg total) by mouth nightly Indications: gastroesophageal reflux disease. GERD [facility] Active cetirizine (ZyrTEC) 5 mg tablet Take 1 tablet (5 mg total) by mouth as needed for allergies. Active busPIRone (BUSPAR) 15 mg tabletIndicati ons:generalize d anxiety disorder Take 0.5 tablets (7.5 mg total) by mouth as needed (anxiety) Indications: repeated episodes of anxiety. Active atorvastatin (LIPITOR) 10 mg tabletIndicati ons:hyperchole sterolemia Take 1 tablet (10 mg total) by mouth nightly Indications: high cholesterol. 04/22/20 23 Active meloxicam (MOBIC) 15 mg tabletIndicati ons:Chronic right hip pain take 1 tablet by mouth every morning 30 tablet 1 11/13/19 24 Active ARIPiprazole (ABILIFY) 30 mg tabletIndicati ons:major depressive disorder treatment adjunct Take 1 tablet (30 mg total) by mouth nightly Indications: additional treatment for major depressive disorder. Active Active Problems Problem Noted Date Diagnosed Date NIRMALA (obstructive sleep apnea) 05/09/2024 Obstructive sleep apnea 04/19/2024 Chronic right hip pain 08/21/2023 Lumbar radiculopathy 05/03/2023 Bipolar disorder, curr episo de mixed, severe, with psychotic features 08/19/2017 Encounters Date Type Department Care Team Description 10/31/2024 Telephone [facility] - Sleep Disorders [address] [place] [address] Trinh Eduardo MD Sleep Lab (PAP) 10/30/2024 2:15 PM EDT - 10/30/2024 11:59 PM EDT Hospital Encounter [facility] - Radiology [address] [place] [address] Chest pain, unspecified type Discharge Disposition: Home 10/30/2024 2:15 PM EDT - 10/30/2024 11:59 PM EDT Hospital Encounter [facility] - Radiology [address] [place] [address] Chest pain, unspecified type Discharge Disposition: Home 10/30/2024 Travel 10/30/2024 Orders Only [facility] Department of [facility] [address] [facility] [address] [place] [address] Trinh Eduardo MD NIRMALA (obstructive sleep apnea) (Primary Dx) 09/06/2024 8:15 AM EDT [facility] [address] [facility] [address] [place] [address] Tevin Esquivel MD Obstructive sleep apnea (Primary Dx) 09/04/2024 Travel from Last 3 Months Immunizations No known immunizations Family History Medical History Relation Name Comments No Known Problems Brother No Known Problems Cousin No Known Problems Father No Known Problems Maternal Aunt No Known Problems Maternal Grandfather No Known Problems Maternal Grandmother No Known Problems Maternal Uncle No Known Problems Mother No Known Problems Paternal Aunt No Known Problems Paternal Grandfather No Known Problems Paternal Grandmother No Known Problems Paternal Uncle No Known Problems Sister ADD / ADHD Neg Hx Alcohol abuse Neg Hx Anesthesia problems Neg Hx Anxiety disorder Neg Hx Bipolar disorder Neg Hx Dementia Neg Hx Depression Neg Hx Drug abuse Neg Hx OCD Neg Hx Paranoid behavior Neg Hx Schizophrenia Neg Hx Seizures Neg Hx Self-Injurious Behavior Neg Hx Suicide Attempts Neg Hx Relation Name Status Comments Brother Cousin Father Maternal Aunt Maternal Grandfather Maternal Grandmother Maternal Uncle Mother Paternal Aunt Paternal Grandfather Paternal Grandmother Paternal Uncle Sister Social History Tobacco Use Types Packs/Day Years Used Date Smoking Tobacco: Never Passive Smoke Exposure: Never Smokeless Tobacco: Never Tobacco Cessation:Counseling Given: [...] got money to buy more. Never True 07/23/2024 Within the past 12 months th e food we bought just didn't last and we didn't have money to get more. Never True 07/23/2024 Purpose - Life Answer Date Recorded Purpose and direction in life Unknown Comments No Sex and Gender Information Value Date Recorded Sex Assigned at Not on file Legal Sex Female 11:26 AM EDT Gender Identity Not on file Sexual Orientation Not on file Last Filed Vital Signs Vital Sign Reading Time Taken Comments Blood Pressure 129/80 08/22/2024 5:10 PM EST Pulse 99 08/22/2024 5:07 PM EST Temperature 36.2 C (97.2 F) 09/06/2024 8:22 AM EDT Respiratory Rate 17 08/22/2024 5:10 PM EST Oxygen Saturation 97% 08/22/2024 5:10 PM EST Inhaled Oxygen Concentration - - Weight 86.7 kg (191 lb 3.2 oz) 09/06/2024 8:22 A M EDT Height 152.4 cm (5') 09/06/2024 8:22 AM EDT Body Mass Index 37.34 09/06/2024 8:22 AM EDT Plan of Treatment Health Maintenance Due Date Last Done Comments Depression Screening 1988 Adult BMI Follow Up Plan 1994 DTaP,Tdap and Td Vaccines (1 - Tdap) 1995 Influenza Vaccine 02/24/2025 05/03/2012 Tobacco Screening 08/22/2025 08/22/2024 Adult BMI Screening 09/06/2025 09/06/2024 Medical Devices Implanted Type Area Licensed Journeyman Electrician Device Identifier Shelf Expiration Date Model / Serial / Lot Generator Nrstm - [id number] - [id number] Implanted:Qty: 1 on 08/22/2024 by Tevin Esquivel MD at [facility] Generator Right: Chest [employer] 03/18/2027 [id number] / [id number] / NA Lead Ns [facility] - [id number] - [id number] Implanted:Qty: 1 on 08/22/2024 by Tevin Esquivel MD at [facility] Implant Lead Right: Chest [employer] 03/15/2027 4340 / [id number] / NA Lead Nrstm Inspr 3 Elect Cuf Tnl [employer] - [id number] - [id number] Implanted:Qty: 1 on 08/22/2024 by Tevin Esquivel MD at [facility] Neuro Stimulator Right: Neck [employer] 10/06/2026 4063 / [id number] / NA Procedures Procedure Name Priority Date/Time Associated Diagnosis Comments XR SPINE CERVICAL 3 VWS OR LESS Routine 10/30/2024 2:26 PM EDT Chest pain, unspecified type XR CHEST 2 VWS Routine 10/30/2024 2:25 PM EDT Chest pain, unspecified type from Last 3 Months Results * X-ray spine cervical 3 views or less (10/30/2024 2:26 PM EDT) Anatomical Region Laterality Modality MSK, Neuro, Spine, C-spine N/A Compu jacqui Radiography 11/02/2024 11:3 8 PM EDT Narrative 11/02/2024 11:41 PM EDT XR SPINE CERVICAL 3 VWS OR LESS HISTORY: Chest pain, unspecified type; sleep apnea. COMPARISON: 08/22/2024. IMPRESSION: * Hypoglossal nerve stimulator right submandibular region. * No acute osseous abnormality. Finalized by Mark Stoddard MD on 11/02/2024 11:41 PM Procedure Note Mark Stoddard MD - 11/02/2024 XR SPINE CERVICAL 3 VWS OR LESS HISTORY: Chest pain, unspecified type; sleep apnea. COMPARISON: 08/22/2024. IMPRESSION: * Hypoglossal nerve stimulator right submandibular region. * No acute osseous abnormality. Finalized by Mark Stoddard MD on 11/02/2024 11:41 PM Trinh Eduardo MD [facility] ORDERABL ES Final Result * X-ray chest 2 views (10/30/2024 2:25 PM EDT) Anatomical Region Laterality Modality Body, Chest N/A Computed Radiogr aphy 10/30/2024 3:31 PM EDT Narrative 10/30/2024 3:32 PM EDT History: Chest Pain Procedure: 2 view PA and Lateral chest radiograph. Comparison: 08/22/2024 Findings: The heart and lungs show no acute findings, and the mediastinum and dionisio are grossly negative . No pneumothorax. Right-sided right-sided nerve stimulator. Impression: No acute pulmonary process. Finalized by Dawson Pierre MD on 10/30/2024 3:32 PM Procedure Note Dawson Pierre MD - 10/30/2024 History: Chest Pain Procedure: 2 view PA and Lateral chest radiograph. Comparison: 08/22/2024 Findings: The heart and lungs show no acute findings, and the mediastinumand dionisio are grossly negative . No pneumothorax. Right-sided right-sidednerve stimulator. Impression: No acute pulmonary process. Finalized by Dawson Pierre MD on 10/30/2024 3:32 PM Trinh Eduardo MD [facility] ORDER[facility] ES Final Result from Last 3 Months Insurance CodeHS Care Teams Child Care Provider Relationship Specialty Start Date End Date Essie Ryan, PRESTO LOG OPERATOR-SENIOR QA TESTER PCP - General Nurse Practitioner 10/03/18
--- OUTSIDE RECORDS SUMMARY | 2024-11-25 13:29 | XMS_ITS | Encounter Summary ---
Author Organization [facility] Address [address] [place] [address] Care Team Providers Care Body And Fender Worker Name Role Phone Yuriy Martins MD Primary Care Provider [phone] Unallocated, [facility] Provider Primary Care Provi singh Yuriy Martins MD Primary Care Provider [phone] AicEssie ha SPOOL WORKER Unavailable [phone] Essie Ryan NP Unavailable [phone] Yuriy Martins MD Primary Care Provider [phone] Encounter Details Date Type Department Care Team (Late st Contact Info) Description 05/25/2023 Clinisync Result Encounter [facility] External Department Unsolicited Provider, Generic External Data Social History Tobacco Use Types Packs/Day Years Used Date Smoking Tobacco: Never Smokeless Tobacco: Never Alcohol Use Standard Drinks/Week Comments Never 0 (1 standard drink = 0.6 oz pure alcohol) caffeine intake: 1-2 cups per day Comments Unknown Sex and Gender Information Value Date Recorded Sex Assigned at Not on file Legal Sex Female 7:01 PM EDT Gender Identity Not on file Sexual Orientation Not on file COVID-19 Exposure Response Date Recorded In the last 10 days, have yo u been in contact with someone who was confirmed or suspected to have Coronavirus/COVID-19? No / Unsure 05/08/2023 5:02 PM EST documented as of this encounter Plan of Treatment Upcoming Encounters Date Type Department Care Team (Late st Contact Info) Description 01/01/2025 1:00 PM EDT Office Visit [facility] [address] [place] [address] Essie Ryan NP [address] [place] [phone] documented as of this encounter Procedures Procedure Name Priority Date/Time Associated Diagnosis Comments XR ABDOMEN 1V 05/25/2023 10:00 AM EST documented in this encounter Results * XR ABDOMEN 1V (05/25/2023 10:00 AM EST) Anatomical Region Laterality Modality Other 05/25/2023 10:0 0 AM EST Narrative 05/25/2023 10:00 AM EST [address] [address] XRay Report Signed Patient: STACEY FIGUEROA MR#: [id number] : 1975 Acct:[id number] Age/Sex: 47 / F ADM Date: 05/24/23 Loc: [facility] Attending Dr: Leslie ONEILL Ordering Physician: Leslie Dominguez Date of Service: 05/24/23 Procedure(s): XR abdomen 1V Accession Number(s): [id number] cc: Essie Ryan SPOOL WORKER; Leslie Dominguez [address] [address] Patient Name: STACEY FIGUEROA MRN: [id number] date: 1975 Sex: F Assigned Patient Location: [facility] Current Patient Location: Accession/Order Number: [id number] Exam Date: 05/24/2023 16:36 Report Date: 05/25/2023 10:00 At the request of: LESLIE DOMINGUEZ Procedure: XR abdomen 1V EXAM: XR abdomen 1V HISTORY: Kidney stone COMPARISON: None. TECHNIQUE: AP view of the abdomen. FINDINGS: Nonobstructive bowel gas pattern is noted. There is no suspicious calcification. The osseous structures are intact. XR/XR abdomen 1V IMPRESSION: Nonobstructive bowel gas pattern. Constipation. Electronically authenticated by: DENZEL CONROY Date: 05/25/2023 10:00 Dictated By: Denzel Conroy M.D. Signed By: 05/25/231001 DD/ 1000 TD/TT: Career Services Representative: Procedure Note Radiology, Radiologist, - 05/25/2023 [place] [address] XRay Report Signed Patient: STACEY FIGUEROA AMR#: [id number] : 1975Acct:[id number] Age/Sex: 47 / FADM Date: 05/24/23 Loc: [facility] Attending Dr: Leslie ONEILL Ordering Physician: Leslie Dominguez Date of Service: 05/24/23 Procedure(s): XR abdomen 1V Accession Number(s): [id number] cc: Essie Ryan SPOOL WORKER; Leslie Dominguez [facility] [place] [id number] Patient Name: STACEY FIGUEROA MRN: [id number] date: 1975 Sex: F Assigned Patient Location: [facility] Current Patient Location: Accession/Order Number: [id number] Exam Date: 05/24/2023 16:36 Report Date: 05/25/2023 10:00 At the request of: LESLIE DOMINGUEZ Procedure: XR abdomen 1V EXAM: XR abdomen 1V HISTORY: Kidney stone COMPARISON: None. TECHNIQUE: AP view of the abdomen. FINDINGS: Nonobstructive bowel gas pattern is noted. There is no suspicious calcification. The osseous structures are intact. XR/XR abdomen 1V IMPRESSION: Nonobstructive bowel gas pattern. Constipation. Electronically authenticated by: DENZEL CONROY Date: 05/25/2023 10:00 Dictated By: Denzel Conroy M.D. Signed By:05/25/231001 DD/ 1000 TD/TT: Career Services Representative: us Generic External Data Provider [facility] Final Result documented in this encounter Visit Diagnoses Not on filedocumented in this encounter Care Teams Body And Fender Worker Relationship Specialty Start Date End Date Yuriy Martins MD PCP - General Cardiology 11/29/22 07/16/23 Unallocated, [facility] MD Alex [address] [place] [address] PCP - General Family Medicine 07/17/23 08/16/23 Yuriy Martins MD [address] [place] [address] PCP - General Family Medicine 08/17/23 04/09/24 Essie Ryan NP [address] [place] [phone] PCP - [facility] 12/25/23 Yuriy Martins MD [address] [place] [phone] PCP - General Family Medicine 05/29/24 Essie Ryan, NETO [address] [place] [phone] Nurse Practitioner Family Medicine 08/17/23 documented as of this encounter
--- OUTSIDE RECORDS SUMMARY | 2024-11-25 13:29 | XMS_ITS | Encounter Summary ---
Author Organization [facility] Address [address] [place] [address] Care Team Providers Care Hoop Bender Tank Name Role Phone Essie Ryan MD Primary Care Provider [phone] Encounter Details Date Type Department Care Team (Late st Contact Info) Description 10/11/[address] [facility] [address] [place] [address] Bess Barfield MA Social History Tobacco Use Types Packs/Day Years Used Date Smoking Tobacco: Never Smokeless Tobacco: Never Alcohol Use Standard Drinks/Week Comments Not Currently 0 (1 standard drink = 0.6 oz pur e alcohol) [place] Safety & Environment Answer Date Rec orded [...] encounter Miscellaneous Notes * Telephone Encounter - Bess Barfield MA - 10/25/2024 4:22 PM EDT Spoke with patient and she said her chest pain is better since starting diltiazem. She's scheduled for echo 11/02/2023. * Telephone Encounter - Marla Monroe CNP - 10/12/2024 7:57 AM EDT And also please ask how her chest pain is doing, if it is any better with starting diltiazem. Thanks * Telephone Encounter - Marla Monroe CNP - 10/12/2024 7:50 AM EDT When is she scheduled for her ECHO? Would like to have this prior to clearance * Telephone Encounter - Bess Barfield MA - 10/11/2024 9:20 AM EDT You saw this patient in the office last week. Dr. Khan is now requesting clearance for lithotripsy, scheduled on 10/17. She had EKG when we saw her, and I just put updated lab results into her chart. Please advise. Thanks! documented in this encounter Plan of Treatment Not on file documented as of this encounter Visit Diagnoses Not on filedocumented in this encounter Care Teams Hoop Bender Tank Relationship Specialty Start Date End Date Essie Ryan MD [address] [place] [address] PCP - General 08/29/23 documented as of this encounter
--- OUTSIDE RECORDS SUMMARY | 2024-11-25 13:29 | XMS_ITS | Encounter Summary ---
Author Organization [facility] Address [address] [place] [address] Care Team Providers Care Workers Compensation Consultant Name Role Phone Yuriy Martins MD Primary Care Provider [phone] Essie Ryan POULTRY HANGER Unavailable [phone] Essie Ryan POULTRY HANGER Unavailable [phone] Yuriy Martins MD Primary Care Provider [phone] Encounter Details Date Type Department Care Team (Late st Contact Info) Description 11/10/2023 Clinisync Result Encounter [facility] External Department Unsolicited Shaikh Dutton MD [address] [place] [id number] Social History Tobacco Use Types Packs/Day Years [...] declined 06/14/2023 How often do you attend druze or amish serv ices? Patient declined 06/14/2023 Do you belong to any clubs o r organizations such as druze groups, unions, fraternal or athletic groups, or [...] Recorded Patient Health Questionnaire-2 Score 0 11/08/2023 [facility] - Occupational Stress Questionnaire Answer [...] money to buy more. Never true 06/14/20 Within the past 12 months, t he [...] place to sleep or slept in a nursing home (including now)? No 06/14/2023 Comments Unknown Sex and Gender Information Value Date Recorded Sex Assigned at Not on file Legal Sex Female 7:01 PM EDT Gender Identity Not on file Sexual Orientation Not on file documented as of this encounter Plan of Treatment Upcoming Encounters Date Type Department Care Team (Late st Contact Info) Description 01/01/2025 1:00 PM EDT Office Visit [facility] [address] [place] [address] Essie Ryan NP [address] [place] [address] documented as of this encounter Procedures Procedure Name Priority Date/Time Associated Diagnosis Comments XR FOOT LT MIN 3V 11/10/2023 6:1 1 AM EDT documented in this encounter Results * XR FOOT LT MIN 3V (11/10/2023 6:11 AM EDT) Anatomical Region Laterality Modality Other 11/10/2023 6:11 AM EDT Narrative 11/10/2023 6:15 [place] [address] XRay Report Signed Patient: STACEY FIGUEROA MR#: [id number] : 1975 Acct:[id number] Age/Sex: 48 / F ADM Date: 11/08/23 Loc: RAD Attending Dr: Shaikh Marija Powell Ordering Physician: Shaikh Andre Dutton Date of Service: 11/08/23 Procedure(s): XR foot LT min 3V Accession Number(s): [id number] cc: Essie Ryan POULTRY HANGER; Shaikh Andre Dutton [address] [place] [id number] Patient Name: STACEY FIGUEROA MRN: [id number] date: 1975 Sex: F Assigned Patient Location: [facility] Current Patient Location: Accession/Order Number: [id number] Exam Date: 11/08/2023 16:47 Report Date: 11/10/2023 06:11 At the request of: SHAIKH MARIJA Procedure: XR foot LT min 3V PROCEDURE: XR foot LT min 3V HISTORY: LEFT FOOT PAIN ; left heel pain COMPARISON: None. FINDINGS: BONES:Prominent calcaneal plantar spur. Mild joint space narrowing and periarticular osteophytes at the first metatarsophalangeal joint. SOFT TISSUES:Small calcification in or just deep to the skin surface lateral to the head of the 5th metatarsal. EFFUSION:None visible. OTHER: Negative. XR/XR foot LT min 3V IMPRESSION: 1. Prominent calcaneal plantar spur of uncertain clinical significance. 2. Mild degenerative joint disease of the first metatarsophalangeal joint. Electronically authenticated by: DAWSON GROSS Date: 11/10/2023 06:11 Dictated By: Dawson Gross M.D. Signed By: 11/10/23614 DD/ 0 TD/TT: Millstone Cleaner: Procedure Note Radiology, Radiologist, - 11/10/2023 [facility] [place] [id number] XRay Report Signed Patient: STACEY FIGUEROA AMR#: [id number] : 1975Acct:[id number] Age/Sex: 48 / FADM Date: 11/08/23 Loc: RAD Attending Dr: Shaikh Marija Powell Ordering Physician: Shaikh Andre Dutton Date of Service: 11/08/23 Procedure(s): XR foot LT min 3V Accession Number(s): [id number] cc: Essie Ryan POULTRY HANGER; Shaikh Andre Dutton [facility] [address] [place] [address] Patient Name: STACEY FIGUEROA MRN: [id number] date: 1975 Sex: F Assigned Patient Location: [facility] Current Patient Location: Accession/Order Number: [id number] Exam Date: 11/08/2023 16:47 Report Date: 11/10/2023 06:11 At the request of: SHAIKH MARIJA Procedure: XR foot LT min 3V PROCEDURE: XR foot LT min 3V HISTORY: LEFT FOOT PAIN ; left heel pain COMPARISON: None. FINDINGS: BONES:Prominent calcaneal plantar spur. Mild joint space narrowing and periarticular osteophytes at the first metatarsophalangeal joint. SOFT TISSUES:Small calcification in or just deep to the skin surfacelateral to the head of the 5th metatarsal. EFFUSION:None visible. OTHER: Negative. XR/XR foot LT min 3V IMPRESSION: 1. Prominent calcaneal plantar spur of uncertain clinical significance. 2. Mild degenerative joint disease of the first metatarsophalangeal joint. Electronically authenticated by: DAWSON GROSS Date: 11/10/2023 06:11 Dictated By: Dawson Gross M.D. Signed By:11/10/23614 DD/ 0 TD/TT: Millstone Cleaner: Shaikh Marija [facility] Final Result documented in this encounter Visit Diagnoses Not on filedocumented in this encounter Care Teams Workers Compensation Consultant Relationship Specialty Start Date End Date Yuriy Martins MD [address] [place] [address] PCP - General Family Medicine 08/17/23 04/09/24 Essie Ryan NP [address] [place] [address] PCP - [facility] 12/25/23 Yuriy Martins MD [address] [place] [address] PCP - General Family Medicine 05/29/24 Essie Ryan NP [address] [place] [address] Nurse Practitioner Family Medicine 08/17/23 documented as of this encounter
--- OUTSIDE RECORDS SUMMARY | 2024-11-25 13:29 | XMS_ITS | Encounter Summary ---
Author Organization [facility] Address [address] [place] [address] Care Team Providers Care Air Grinder Name Role Phone Charlimataishwarya Essie Geiger CNP Primary Care Provider Adán Torres DO Unavailable [phone] Dany ARDON MD, [facility] Unavailable + Angel Delgado DO Unavailable [phone] Source Comments In the event this information is protected by the Federal Confidentiality of Alcohol and Drug AbusePatient Records regulations: The Federal rules restrict any use of the information to criminally investigate or prosecute any alcohol or drug abuse patient.[facility] Encounter Details Date Type Department Care Team (Late st Contact Info) Description 06/17/2024 Patient Msg Spine [place] [address] [place] [address] Provider, [facility] Important Reminder for Preparing Your Skin for Surgery Social History Tobacco Use Types Packs/Day Years [...] is lower risk 9 03/15/2024 Data from: https://www.neighborhoodatlas.medicine.[facility]/. Last address used for calculation [address] [...] of Assessment Author No 12/16/2020 1:10 PM EULOGIOT Meg Maldonado i, RN * Do you [...] on filedocumented in this encounter Care Teams Air Grinder Relationship Specialty Start Date End Date Essei Ryan CNP PCP - General Family Medicine 1/27/17 Adán Torres DO Obstetrics 07/22/16 Alexis Saenz II, MD [address] [place] [address] Referring Orthopedics 12/13/21 Angel Delgado DO [address] [place] [address] Referring Orthopedics 03/08/24 documented as of this encounter
--- OUTSIDE RECORDS SUMMARY | 2024-11-25 13:29 | XMS_ITS | Encounter Summary ---
Author Organization [facility] Address [facility] [place] [address] Care Team Providers Care Journeyman Powerhouse Operator Name Role Phone CharliandersonaraceliAlemkandi Geiger CNP Primary Care Provider Adán Torres DO Unavailable [phone] Dany ARDON MD, Alexis Madison Unavailable + Angel Delgado DO Unavailable [phone] Source Comments In the event this information is protected by the Federal Confidentiality of Alcohol and Drug AbusePatient Records regulations: The Federal rules restrict any use of the information to criminally investigate or prosecute any alcohol or drug abuse patient.[facility] Encounter Details Date Type Department Care Team (Late st Contact Info) Description 07/31/2023 Patient [facility] [address] [place] [address] Provider, Meeta IBD VIRTUAL EDUCATION for you by Drs. Cole & Shashi-- JOIN US! Social History Tobacco Use Types Packs/Day Years Used Date Smoking Tobacco: Never Smokeless Tobacco: Never Alcohol Use Standard Drinks/Week Comments No 0 (1 standard drink = 0.6 oz pur e alcohol) PHQ-2 Answer Date Recorded PHQ-2 score 0 02/14/2022 Area Deprivation Index Answer Date Erik rded National Score (1-100), lower number is lower ri sk 83 07/24/2022 State Score (1-10), lower number is lower risk N ot on file 07/24/2022 Data from: https://www.neighborhoodatlas.medicine.[facility]/. Last address used for calculation [address] 07/24/2022 Comments No Sex and Gender Information Value [...] of Assessment Author No 12/16/2020 1:10 PM EDMeg Mari i, RN * Do you have difficulty dressing or bathing? Answer Date of Assessment Author No 12/16/2020 1:10 PM EDMeg Mari i, RN * Because of a physical, mental, or emotional condition, do you have difficulty doing errands alone such as visiting a doctor's office or shopping? Answer Date of Assessment Author No 12/16/2020 1:10 PM EDMeg Mari i, RN documented as of this encounter [...] on filedocumented in this encounter Care Teams Journeyman Powerhouse Operator Relationship Specialty Start Date End Date Essie Ryan, FLOUR TESTER PCP - General Family Medicine 07/22/16 Adán Torres DO Obstetrics 07/22/16 Alexis Saenz II, MD [address] [place] [address] Referring Orthopedics 12/13/21 Angel Delgado DO [address] [place] [address] Referring Orthopedics 03/08/24 documented as of this encounter
--- OUTSIDE RECORDS SUMMARY | 2024-11-25 13:29 | XMS_ITS | Clinical Summary ---
Author Organization [facility] Address [address] [place] [address] Care Team Providers Care Mechanical Maintenance Worker Name Role Phone Essie Ryan MD Primary Care Provider [phone] Allergies Active Allergy Reactions Criticality Noted Date Comments Penicillins Other,Unknown Medium 06/13/2014 As a child Medications Medication Sig Dispensed Refills Start Date End Date Status omeprazole (PriLOSEC) [address] capsule Take 40 mg by mouth in the morning. 09/20/2022 Active busPIRone (Buspar) 7.5 mg tablet Take 7.5 mg by mouth twice a day. 05/29/2023 Active cetirizine (ZyrTEC) 10 mg tablet Take 10 mg by mouth if needed. 08/17/2023 Active ibuprofen 800 mg tablet Take 800 mg by mouth every 6 (six) hours if needed. 02/02/2022 Active meloxicam (Mobic) 15 mg tablet Take 15 mg by mouth in the morning. 12/09/2021 Active tamsulosin (Flomax) 0.4 mg 24 hr capsule Take 1 tablet by mouth if needed. 06/09/2024 Active dilTIAZem CD (Cardizem CD) 120 mg 24 hr capsuleIndications: Benign hypertensive heart disease without heart failure,Palpitation s,PAC (premature atrial contraction),PVC (premature ventricular contraction) Take 1 capsule (120 mg) by mouth in the morning. 30 capsule 11 10/03/2024 Active atorvastatin (Lipitor) 40 mg tabletIndications:M ixed hyperlipidemia Take 1 tablet (40 mg) by mouth in the morning. 10/09/2024 Active ARIPiprazole (Abilify) 30 mg tablet Take 30 mg by mouth in the morning. Active losartan (Cozaar) 100 mg tabletIndications:P rimary hypertension Take 1 tablet (100 mg) by mouth in the morning. 90 tablet 3 11/11/2024 6 Active ARIPiprazole (Abilify) 10 mg tablet Take 10 mg by mouth in the morning. 02/29/2024 5 Discontinue d(Therapy completed) naloxone (Narcan) 4 mg/0.1 mL nasal spray Administer 4 mg into affected nostril(s) if needed. 06/30/2024 5 Discontinue d(Therapy completed) pantoprazole (ProtoNix) 20 mg EC tablet Take 20 mg by mouth in the morning. 06/30/2024 5 Discontinue d(Therapy completed) Active Problems Problem Noted Date Diagnosed Date Neurostimulator device in situ 10/30/2024 Osteophyte of right hip 10/03/2024 Other bursal cyst, right hip 10/03/2024 Degeneration of lumbar intervertebral disc 10/03 Dizziness and giddiness 08/28/2024 S/P total right hip arthroplasty 07/01/2024 Needs flu shot 04/10/2024 Median nerve neuritis 02/29/2024 Overview (03/06/2024): Last Assessment & Plan: Cont nsaid Trial cock up splint Recheck in 6 weeks Last Assessment & Plan: Continue NSAID, get a cock up splint Fu in 6 weeks Contracture, left ankle 01/30/2024 Pain of left heel 10/25/2023 Overview (02/20/2024): Last Assessment & Plan: Left Heel pain x 2 weeks, persistent, at calcaneal bone No hx of injury. No overlying skin changes. Could be due to calcaneal spurs vs inflammation at plantar fascia insertion site C/w Mobic. Discussed conservative measures - wear comfortable shoes, avoid heels. Recommended home stretching exercises. Avoid walking barefoot. Trial of Prednisone. If persistent symptoms and no improvement with conservative measures - will refer to Podiatry. No need for XR. Last Assessment & Plan: Left foot Pain, ongoing for 4 weeks. Persistent, worse towards the end of the day. No injury, no overlying skin changes. Tenderness along calcaneal bone. No improvement with prednisone, Mobic. Will get XR, and refer to Podiatry. Herpes zoster without complication 09/28/2023 Overview (02/20/2024): Last Assessment & Plan: Off work, may RTW 10/04/23 Add antivirals and steroids If ANY eye symptoms occur go to ER She denies facial NT , she is able to smell and taste, she also does not have any acute pain Advised to stay away from those who are immune suppressed, and not vaccinated for varicella (has grandchildren) Kidney stones 08/29/2023 08/29/2023 Nocturia 08/29/2023 08/29/2023 Anxiety 07/25/2023 08/29/2023 Breast cancer screening 07/13/2023 08/29/19 24 Fluid level behind tympanic membrane of right ea r 07/13/2023 08/29/2023 Overview (08/29/2023): Last Assessment & Plan: Persistent over 6-8 weeks, will refer to ENT Timmis Chronic rhinitis 2023 08/29/2023 Overview (08/29/2023): Last Assessment & Plan: Is not compliant with nasal steroid Needs to use this URI, acute 06/15/2023 08/29/2023 Lumbar radiculopathy 05/03/2023 08/29/2023 Thyroid nodule 01/18/2023 08/29/2023 Arthritis of right hip 01/14/2023 Multiple thyroid nodules 01/14/2023 024 Sensorineural hearing loss, bilateral 01/14/2023 08/29/2023 Bipolar depression 11/08/2022 Chronic GERD 11/08/2022 GERD (gastroesophageal reflux disease) Crohn's disease of intestine 11/08/2022 Overview (11/08/2022): Last Assessment & Plan: ASSESSMENT: -this is a 45 y/o female [...] with [facility] staff Dr. Yong Rodriguez Flank pain 11/08/2022 Gross hematuria 11/08/2022 Obese 11/08/2022 PAH (pulmonary artery hypertension) 11/08/2022 Pulmonary HTN 11/08/2022 Assessment & Plan (03/06/2024 12:24 PM EDT): Currently stable and controlled and she is going for pulmonary appt today Assessment & Plan (08/29/2023 12:58 PM EST): Stable no concerning symptoms COVID-19 01/24/2022 08/29/2023 Bipolar disease, chronic 12/14/2020 Enterolith of small intestine 12/14/2020 Mixed hyperlipidemia 12/14/2020 Assessment & Plan (03/06/2024 12:22 PM EDT): Lipid abnormalities are still elevated with Chol and LDL not within goal. D/w pt will increase lipitor to 80 mg daily and pt to call office for any myalgias or concerns, repeat labs in 2-3 months- LFT and Lipid levels. Assessment & Plan (08/29/2023 12:59 PM EST): Will increase lipitor to 40 mg daily for better lipid management and repeat Lipid level and LFT in 2-3 months Bipolar disorder, curr episo de mixed, severe, with psychotic features 08/19/2017 NIRMALA (obstructive sleep apnea) 11/25/2016 Assessment & Plan (08/29/2023 1:04 PM EST): Pt to f/U with pulmonology for further evaluation and mangement- she states she has been unable to wear Cpap and would like to see about Inspire implant. Crohn's disease without complication 07/27/2016 Disorder of lung 04/05/2013 Pleurisy 04/05/2013 Dyspnea 04/20/2012 Chest pain 02/09/2012 Assessment & Plan (03/06/2024 12:24 PM EDT): Currently resolved Crohn's disease of small and large intestines Crohn's disease of both smal l and large intestine without complications 09/21/2011 Overview (02/20/2024): Last Assessment & Plan: Continue to monitor GI Resolved Problems Problem Noted Date Diagnosed Date Resolved Date (spontaneous vaginal delivery) 07/27/2016 08/29/2023 Encounters Date Type Department Care Team Description 11/15/2024 Telephone [facility] at [address] [phone] Javid Martínez, [facility] Sleep Study; Referral 11/11/2024 10:30 AM EDT Office Visit [place] [address] [place] [address] Milo Moran MD Primary hypertension (Primary Dx); Preop cardiovascular exam; Mixed hyperlipidemia; PAC (premature atrial contraction); PVC (premature ventricular contraction) 10/30/2024 12:00 PM EDT Follow-Up [facility] [address] [place] [address] Trinh Eduardo MD NIRMALA (obstructive sleep apnea) (Primary Dx); Chest pain, unspecified type; Neurostimulator device in situ 10/11/2024 Telephone [facility] [address] [place] [address] Bess Barfield MA 10/03/2024 2:00 PM EDT Office Visit [facility] [address] [place] [address] Marla Monroe CNP Benign hypertensive heart disease without heart failure (Primary Dx); Other chest pain; Palpitations; PAC (premature atrial contraction); PVC (premature ventricular contraction); Pulmonary HTN (CMS/HCC); Mixed hyperlipidemia 09/27/2024 9:00 AM EDT Follow-Up [facility] [address] [phone] Trinh Eduardo MD NIRMALA (obstructive sleep apnea) (Primary Dx); Neurostimulator device in situ 09/10/2024 Telephone [facility] [address] [phone] Trinh Eduardo MD Appointment from Last 3 Months Immunizations Name Administration Dates Next Due Influenza Whole 05/03/2012 Family History Medical History Relation Name Comments Coronary artery disease Father Relation Name Status Comments Father Mother Alive Social History Tobacco Use Types Packs/Day Years Used Date Smoking Tobacco: Never Smokeless Tobacco: Never Tobacco Cessation:Counseling Given: Not Answered Alcohol Use Standard Drinks/Week Comments Not Currently [...] AM EDT Temperature - - Respiratory Rate 16 03/06/2024 1:52 PM EDT Oxygen Saturation 98% 11/11/2024 11:10 AM EDT Inhaled Oxygen Concentration - - Weight 88.9 kg (196 lb) 11/11/2024 11:10 AM EDT Height 152.4 cm (5') 11/11/2024 11:10 AM EDT Body Mass Index 38.28 11/11/2024 11:10 AM EDT Plan of Treatment Health Maintenance Due Date Last Done Comments CT Colonography 1975 FIT-DNA 1975 FIT 1975 FOBT 1975 Sigmoidoscopy 1975 Depression Screening 1988 Hepatitis B Vaccines (1 of 3 - 19+ 3-dose series) 1995 Pap Smear 1997 Adult Tetanus 1998 Cervical Cancer Screening 2006 HPV/Cotest 2006 Mammogram 2016 COVID-19 Vaccine (2023-2 5 season) 2024 Influenza Vaccine (Season Ended) 2025 05/03/20 12 Zoster Vaccines (1 of 2) 2026 Colonoscopy 12/15/2030 12/15/2020 Colorectal Cancer Screening 12/15/2030 HIB Vaccines Aged Out No longer eligi ble based on patient's age to complete this topic HPV Vaccines Aged Out No longer eligi ble based on patient's age to complete this topic IPV Vaccines Aged Out No longer eligi ble based on patient's age to complete this topic Meningococcal B Vaccine Aged Out No l onger eligible based on patient's age to complete this topic Meningococcal Vaccine Aged Out No rohit amina eligible based on patient's age to complete this topic Pneumococcal Vaccine: Pediat rics (0 to 5 Years) and At-Risk Patients (6 to 64 Years) Aged Out No longer eligi ble based on patient's age to complete this topic Rotavirus Vaccines Aged Out No longer eligible based on patient's age to complete this topic Procedures Procedure Name Priority Date/Time Associated Diagnosis Comments ECG 12 LEAD UNIT PERFORMED Routine 10/03/2024 2:56 PM EDT Other chest pain from Last 3 Months Results * ECG 12 lead unit performed (10/03/2024 2:56 PM EDT) Marla Wraycker TENANT SELECTOR ECG ORDERABLES from Last 3 Months Care Teams Mechanical Maintenance Worker Relationship Specialty Start Date End Date Essie Ryan MD [address] [place] [address] PCP - General 08/29/23
--- OUTSIDE RECORDS SUMMARY | 2024-11-25 13:29 | XMS_ITS | Encounter Summary ---
Author Organization [facility] Address [address] [place] [address] Care Team Providers Care Department Administrator Name Role Phone Yuriy Martins MD Primary Care Provider [phone] Essie Ryan NP Unavailable [phone] Essie Ryan NP Unavailable [phone] Yuriy Martins MD Primary Care Provider [phone] Encounter Details Date Type Department Care Team (Late st Contact Info) Description 11/10/2023 Orders Only [facility] [address] [place] [address] Essie Ryan NP [address] [place] [phone] Social History Tobacco Use Types Packs/Day Years [...] declined 06/14/2023 How often do you attend yazdanism or congregational serv ices? Patient declined 06/14/2023 Do you belong to any clubs o r organizations such as yazdanism groups, unions, fraternal or athletic groups, or [...] Recorded Patient Health Questionnaire-2 Score 0 11/08/2023 [facility] - Occupational [...] place to sleep or slept in a senior care (including now)? No 06/14/2023 Comments Unknown Sex and Gender Information Value Date Recorded Sex Assigned at Not on file Legal Sex Female 7:01 PM EDT Gender Identity Not on file Sexual Orientation Not on file documented as of this encounter Plan of Treatment Upcoming Encounters Date Type Department Care Team (Late st Contact Info) Description 01/01/2025 1:00 PM EDT Office Visit [facility] [address] [place] [address] Essie Ryan NP [address] [place] [address] documented as of this encounter Procedures Procedure Name Priority Date/Time Associated Diagnosis Comments XR FOOT 3+ VIEWS LEFT Routine 11/08/2023 2:55 PM EDT XR FOOT 3+ VIEWS LEFT Routine 11/08/2023 12:09 PM EDT documented in this encounter Results * XR foot 3+ views left (11/08/2023 2:55 PM EDT) Anatomical Region Laterality Modality Lower Extremities, Foot Left Radiogra phic Imaging us Essie Ryan FOOD TRADES ASSISTANTS IMG XR PROCEDURES Final Result * XR foot 3+ views left (11/08/2023 12:09 PM EDT) Anatomical Region Laterality Modality Lower Extremities, Foot Left Radiogra phic Imaging Essie Ryan FOOD TRADES ASSISTANTS IMG XR PROCEDURES Final Result documented in this encounter Visit Diagnoses Not on filedocumented in this encounter Care Teams Department Administrator Relationship Specialty Start Date End Date Yuriy aMrtins MD [address] [place] [phone] PCP - General Family Medicine 08/17/23 04/09/24 Essie Ryan NP [address] [place] [address] PCP - [employer] 12/25/23 Yuriy Martins MD [address] [place] [address] PCP - General Family Medicine 05/29/24 Essie Ryan NP [address] [place] [address] Nurse Practitioner Family Medicine 08/17/23 documented as of this encounter
--- OUTSIDE RECORDS SUMMARY | 2024-11-25 13:29 | XMS_ITS | Encounter Summary ---
Author Organization [facility] Address [address] [place] [address] Care Team Providers Care Patient Account Representative Name Role Phone Yuriy Martins MD Primary Care Provider [phone] Essie Ryan INDUSTRIAL MAINTENANCE TECH Unavailable [phone] Essie Ryan INDUSTRIAL MAINTENANCE TECH Unavailable [phone] Yuriy Martins MD Primary Care Provider [phone] Encounter Details Date Type Department Care Team (Late st Contact Info) Description 11/22/2023 Clinisync Result Encounter [facility] External Department Unsolicited [...] declined 06/14/2023 How often do you attend adventist or pentecostalism serv ices? Patient declined 06/14/2023 Do you belong to any clubs o r organizations such as adventist groups, unions, fraternal or athletic groups, or [...] Recorded Patient Health Questionnaire-2 Score 0 11/08/2023 [facility] - Occupational Stress Questionnaire Answer [...] 1:00 PM EDT Office Visit [facility] [address] [place] [address] Essie Ryan NP [address] [place] [address] documented as of this encounter Procedures Procedure Name Priority Date/Time Associated Diagnosis Comments XR FOOT LT MIN 3V 11/22/2023 6:2 3 AM EDT documented in this encounter Results * XR FOOT LT MIN 3V (11/22/2023 6:23 AM EDT) Anatomical Region Laterality Modality Other 11/22/2023 6:23 AM EDT Narrative 11/22/2023 6:26 AM EDT The [address] [address] XRay Report Signed Patient: STACEY SAHU MR#: [id number] : 1975 Acct:[id number] Age/Sex: 48 / F ADM Date: 11/21/23 Loc: EC Attending Dr: Yessy Etienne D.P.M. Ordering Physician: Yessy Etienne D.P.M. Date of Service: 11/21/23 Procedure(s): XR foot LT min 3V Accession Number(s): [id number] cc: Essie Ryan INDUSTRIAL MAINTENANCE TECH; Yessy Etienne D.P.M. The [place] [address] Patient Name: STACEY SAHU MRN: [id number] date: 1975 Sex: F Assigned Patient Location: Current Patient Location: Accession/Order Number: [id number] Exam Date: 11/21/2023 10:59 Report Date: 11/22/2023 06:23 At the request of: YESSY ETIENNE Procedure: XR foot LT min 3V PROCEDURE: XR foot LT min 3V HISTORY: LEFT FOOT PAIN , left heel pain COMPARISON: XR foot left 11/08/2023 FINDINGS: BONES:Mild degenerative changes the first metatarsophalangeal joint. Moderate size calcaneal plantar spur. SOFT TISSUES:No visible soft tissue swelling. EFFUSION:None visible. OTHER: Negative. XR/XR foot LT min 3V IMPRESSION: 1. Mild degenerative changes. 2. No acute abnormality. Electronically authenticated by: DAWSON GROSS Date: 11/22/2023 06:23 Dictated By: Dawson Gross M.D. Signed By: 11/22/23625 DD/ 2 TD/TT: Runner Man: Procedure Note Radiology, Radiologist, MD - 11/22/2023 [place] [address] XRay Report Signed Patient: STACEY SAHU AMR#: [id number] : 1975Acct:[id number] Age/Sex: 48 / FADM Date: 11/21/23 Loc: EC Attending Dr: Yessy Etienne D.P.M. Ordering Physician: Yessy Etienne D.P.M. Date of Service: 11/21/23 Procedure(s): XR foot LT min 3V Accession Number(s): [id number] cc: Essie Ryan INDUSTRIAL MAINTENANCE TECH; Yessy Etienne D.P.M. [place] [id number] Patient Name: STACEY SAHU MRN: [id number] date: 1975 Sex: F Assigned Patient Location: Current Patient Location: Accession/Order Number: [id number] Exam Date: 11/21/2023 10:59 Report Date: 11/22/2023 06:23 At the request of: YESSY ETIENNE Procedure: XR foot LT min 3V PROCEDURE: XR foot LT min 3V HISTORY: LEFT FOOT PAIN , left heel pain COMPARISON: XR foot left 11/08/2023 FINDINGS: BONES:Mild degenerative changes the first metatarsophalangeal joint.Moderate size calcaneal plantar spur. SOFT TISSUES:No visible soft tissue swelling. EFFUSION:None visible. OTHER: Negative. XR/XR foot LT min 3V IMPRESSION: 1. Mild degenerative changes. 2. No acute abnormality. Electronically authenticated by: DAWSON GROSS Date: 11/22/2023 06:23 Dictated By: Dawson Gross M.D. Signed By:11/22/23625 DD/ 2 TD/TT: Runner Man: us Generic External Data Provider [facility] Final Result documented in this encounter Visit Diagnoses Not on filedocumented in this encounter Care Teams Patient Account Representative Relationship Specialty Start Date End Date Yuriy Martins MD [address] [place] [address] PCP - General Family Medicine 08/17/23 04/09/24 Essie Ryan NP [address] [place] [address] PCP - [facility] 12/25/23 Yuriy Martins MD [address] [place] [address] PCP - General Family Medicine 05/29/24 Essie Ryan NP [address] [place] [address] Nurse Practitioner Family Medicine 08/17/23 documented as of this encounter
--- OUTSIDE RECORDS SUMMARY | 2024-11-25 13:29 | XMS_ITS | Encounter Summary ---
Author Organization [facility] Address [address] [place] [address] Care Team Providers Care Residential Tech Name Role Phone Essie Ryan MD Primary Care Provider [phone] Reason for Referral * Consultation (Routine) - Pending Review Specialty Diagnoses / Procedures Referred By Wan gamboa Referred To Contact Sleep Medicine Diagnoses NIRMALA (obstructive sleep apnea) Procedures [place] OFFICE/OUTPATIENT [facility] 60 MINUTES Trinh Eduardo MD [address] [place] [address] [facility] [address] [place] [address] Referral ID Status Reason Start Date Expiration Date Visits Requested Visits Authorized [id number] Pending Review Specialty Services Required 11/19/2024 11/19/2025 1 1 * (Routine) - Pending Review Specialty Diagnoses / Procedures Referred By Wan gamboa Referred To Contact Sleep Medicine Diagnoses NIRMALA (obstructive sleep apnea) Trinh Eduardo MD [address] [place] [address] [facility] [address] [place] [address] Referral ID Status Reason Start Date Expiration Date Visits Requested Visits Authorized [id number] Pending Review Specialty Services Required 11/19/2024 11/19/2025 1 1 Reason for Visit * Reason Onset Date Comments Sleep Study 11/15/2024 Referral 11/15/2024 Encounter Details Date Type Department Care Team (Late st Contact Info) Description 11/15/2024 Telephone [facility] [address] [place] [address] Javid Martínez RPSGT [address] [place] [address] Sleep Study; Referral Social History Tobacco Use Types Packs/Day Years [...] encounter Miscellaneous Notes * Telephone Encounter - LISA Eugene - 11/19/2024 1:15 PM EDT Patient left a voicemail indicating she would like to proceed with alternative provider and lab provided they are in-network with her insurance. Unable to determine insurance network status. Faxed referral, sleep study order, last visit notes, and split night study report to [facility]. * Telephone Encounter - LISA Eugene - 11/15/2024 10:22 AM EDT Left voicemail for patient: according to Marisa [facility] sleep medicine in [place] has Marisa-trained techs at their lab and an Marisa-trained provider in Dr. Kaiden Warren -- would you like us to send your study order and referral? documented in this encounter Plan of Treatment Scheduled Referrals Name Type Priority Associated Diagnoses Order Schedule Ambulatory Referral to Polysomnography Outpatient Referral Routine NIRMALA (obstructive sleep apnea) Expected: 11/19/2024 (Approximate), Expires: 05/22/2025 Ambulatory Referral to Sleep Medicine Outpatient Referral Routine NIRMALA (obstructive sleep apnea) Expected: 11/19/2024 (Approximate), Expires: 05/22/2025 documented as of this encounter Visit Diagnoses Diagnosis NIRMALA (obstructive sleep apnea) Obstructive sleep apnea (adult) (pediatric) documented in this encounter Care Teams Residential Tech Relationship Specialty Start Date End Date Essie Ryan MD [address] [place] [address] PCP - General 08/29/23 documented as of this encounter
--- OUTSIDE RECORDS SUMMARY | 2024-11-25 13:29 | XMS_ITS | Encounter Summary ---
Author Organization [facility] tem Address [id number] [address] [place] [address] Care Team Providers Care Pace Analyst Name Role Phone Essie Ryan APRN-[facility] Primary Care Provider Reason for Referral * Misc (Routine) - Pending Review Specialty Diagnoses / Procedures Referred By Contac t Referred To Contact Diagnoses NIRMALA (obstructive sleep apnea) Procedures Polysomnography 4 or more parameters with PAP titration Trinh Eduardo MD [address] [place] [address] [address] [place] [address] Phone: tel: fax: Referral ID Status Reason Start Date Expiration Date V isits Requested Visits Authorized [id number] Pending Review 10/30/2024 10/30/2025 1 1 Encounter Details Date Type Department Care Team (Late st Contact Info) Description 10/30/2024 Orders Only [facility] A Department of [address] [place] [address] Trinh Eduardo MD [address] [place] [address] [address] [place] [address] NIRMALA (obstructive sleep apnea) (Primary Dx) Social History Tobacco Use Types Packs/Day Years [...] as of this encounter Plan of Treatment Scheduled Orders Name Type Priority Associated Diagnoses Orde r Schedule Polysomnography 4 or more parameters with PAP titration Sleep Center Routine NIRMALA (obstructive sleep apnea) Expected: 11/06/2024 (Approximate), Expires: 10/30/2025 documented as of this encounter Visit Diagnoses Diagnosis NIRMALA (obstructive sleep apnea)- Primary Obstructive sleep apnea (adult) (pediatric) documented in this encounter Care Teams Pace Analyst Relationship Specialty Start Date End Date Essie Ryan, CERTIFIED [employer] [place] FACILITY OPERATOR-HOSPITALITY SERVICES MANAGER PCP - General Nurse Practitioner 10/03/18 documented as of this encounter
--- OUTSIDE RECORDS SUMMARY | 2024-11-25 13:29 | XMS_ITS | Referral Summary ---
Author Organization [facility] Address [address] [place] [address] Care Team Providers Care Desk Operator Name Role Phone Essie Ryan MD Primary Care Provider [phone] Encounters Date Type Department Care Team Description 11/15/2024 Telephone [facility] [address] [place] [address] Javid Martínez [facility] Sleep Study; Referral 11/11/2024 10:30 AM EDT Office Visit [address] [address] Milo Moran MD Primary hypertension (Primary Dx); Preop cardiovascular exam; Mixed hyperlipidemia; PAC (premature atrial contraction); PVC (premature ventricular contraction) 10/30/2024 12:00 PM EDT Follow-Up [facility] [address] [place] [address] Trinh Eduardo MD NIRMALA (obstructive sleep apnea) (Primary Dx); Chest pain, unspecified type; Neurostimulator device in situ 10/11/2024 Telephone [place] [address] [place] [address] Bess Barfield MA 10/03/2024 2:00 PM EDT Office Visit [facility] [address] [place] [address] Marla Monroe CNP Benign hypertensive heart disease without heart failure (Primary Dx); Other chest pain; Palpitations; PAC (premature atrial contraction); PVC (premature ventricular contraction); Pulmonary HTN (CMS/HCC); Mixed hyperlipidemia 09/27/2024 9:00 AM EDT Follow-Up [facility] [address] [place] [address] Trinh Eduardo MD NIRMALA (obstructive sleep apnea) (Primary Dx); Neurostimulator device in situ 09/10/2024 Telephone [facility] [address] [place] [address] Trinh Eduardo MD Appointment from Last 3 Months Allergies Active Allergy Reactions Criticality Noted Date [...] mg) by mouth in the morning. 10/09/2024 04/16/202 6 Active ARIPiprazole (Abilify) 30 mg tablet Take [...] Resolved Date (spontaneous vaginal delivery) 07/27/2016 08/29/2023 Immunizations Name Administration Dates Next Due Influenza Whole 05/03/2012 Social History Tobacco Use Types Packs/Day Years [...] 11/11/2024 11:10 AM EDT Plan of Treatment Not on file Procedures Procedure Name Priority Date/Time Associated Diagnosis Comments ECG 12 LEAD UNIT PERFORMED Routine 10/03/2024 2:56 PM EDT Other chest pain from Last 3 Months Results * ECG 12 lead unit performed (10/03/2024 2:56 PM EDT) Marla Monroe CERTIFIED COURT/MEDICAL INTERPRETER ECG ORDERABLES from Last 3 Months Care Teams Desk Operator Relationship Specialty Start Date End Date Essie Ryan MD [address] [place] [address] PCP - General 08/29/23
--- OUTSIDE RECORDS SUMMARY | 2024-11-25 13:29 | XMS_ITS | Encounter Summary ---
Author Organization [facility] Address [address] [place] [address] Care Team Providers Care Automobile Designer Name Role Phone Yuriy Martins MD Primary Care Provider [phone] Essie Ryan GRANITE POLISHER Unavailable [phone] Essie Ryan GRANITE POLISHER Unavailable [phone] Yuriy Martins MD Primary Care Provider [phone] Encounter Details Date Type Department Care Team (Late st Contact Info) Description 08/29/2023 Clinisync Result Encounter [facility] External Department Unsolicited [...] declined 06/14/2023 How often do you attend faith or presybeterian serv ices? Patient declined 06/14/2023 Do you belong to any clubs o r organizations such as faith groups, unions, fraternal or athletic groups, or [...] Recorded Patient Health Questionnaire-2 Score 2 07/13/2023 [facility] - Occupational Stress Questionnaire Answer Date Recorded [...] place to sleep or slept in a mcfp (including now)? No 06/14/2023 Comments Unknown Sex [...] EDT Office Visit [facility] [address] [place] [address] Essie Ryan NP [address] [place] [address] documented as of this encounter Procedures Procedure Name Priority Date/Time Associated Diagnosis Comments XR HIP 2 OR 3 VW RIGHT 08/29/2023 10:40 AM EST documented in this encounter Results * XR hip right 2 or 3 views (08/29/2023 10:40 AM EST) Anatomical Region Laterality Modality Lower Extremities, Hip Right Radiograp hic Imaging 08/29/2023 10:4 0 AM EST Narrative 08/29/2023 10:42 AM EST The [address] [address] XRay Report Signed Patient: STACEY SAHU MR#: [id number] : 1975 Acct:[id number] Age/Sex: 48 / F ADM Date: 08/29/23 Loc: RAD Attending Dr: KristinaStaff Physician Powell Ordering Physician: Ilia Reno M.D. Date of Service: 08/29/23 Procedure(s): XR hip RT 2V w/ pelvis Accession Number(s): [id number] cc: Essie Ryan NP; Ilia Reno M.D. The [address] [address] Patient Name: STACEY SAHU MRN: [id number] date: 1975 Sex: F Assigned Patient Location: RAD Current Patient Location: RAD Accession/Order Number: [id number] Exam Date: 08/29/2023 10:06 Report Date: 08/29/2023 10:40 At the request of: NON-STAFF PHYSICIAN Procedure: XR hip RT 2V w/ pelvis PROCEDURE: XR hip RT 2V w/ pelvis COMPARISON: None. HISTORY: Right Hip Pain M25.551 FINDINGS: BONES:No acute fracture or dislocation. Marginal osteophyte formation bilateral acetabula. SOFT TISSUES:Negative. No visible soft tissue swelling. EFFUSION:None visible. OTHER: Right upper quadrant calcifications cannot determine if this represents foreign bodies or calcified gallstones XR/XR hip RT 2V w/ pelvis IMPRESSION: Bilateral marginal acetabular osteophyte formation Electronically authenticated by: PAULETTE GALVAN Date: 08/29/2023 10:40 Dictated By: Paulette Galvan M.D. Signed By: 08/29/23 1042 DD/ 1040 TD/TT: International Accounting Manager: Procedure Note Radiology, Radiologist, MD - 08/29/2023 [place] [address] XRay Report Signed Patient: STACEY SAHU AMR#: [id number] : 1975Acct:[id number] Age/Sex: 48 / FADM Date: 08/29/23 Loc: [facility] Attending Dr: Ilia Reno M.D. Ordering Physician: Ilia Reno M.D. Date of Service: 08/29/23 Procedure(s): XR hip RT 2V w/ pelvis Accession Number(s): [id number] cc: Essie Ryan NP; Physician,Non-Staff Andre The [address] [address] Patient Name: STACEY SAHU MRN: [id number] date: 1975 Sex: F Assigned Patient Location: RAD Current Patient Location: RAD Accession/Order Number: [id number] Exam Date: 08/29/2023 10:06 Report Date: 08/29/2023 10:40 At the request of: NON-STAFF PHYSICIAN Procedure: XR hip RT 2V w/ pelvis PROCEDURE: XR hip RT 2V w/ pelvis COMPARISON: None. HISTORY: Right Hip Pain M25.551 FINDINGS: BONES:No acute fracture or dislocation. Marginal osteophyte formation bilateral acetabula. SOFT TISSUES:Negative. No visible soft tissue swelling. EFFUSION:None visible. OTHER: Right upper quadrant calcifications cannot determine if thisrepresents foreign bodies or calcified gallstones XR/XR hip RT 2V w/ pelvis IMPRESSION: Bilateral marginal acetabular osteophyte formation Electronically authenticated by: PAULETTE GALVAN Date: 08/29/2023 10:40 Dictated By: Paulette Galvan M.D. Signed By:08/29/23 1042 DD/ 1040 TD/TT: International Accounting Manager: Generic External Data Provider IMG XR PROCEDURES Final Result documented in this encounter Visit Diagnoses Not on filedocumented in this encounter Care Teams Automobile Designer Relationship Specialty Start Date End Date Yuriy Martins MD [address] [place] [address] PCP - General Family Medicine 08/17/23 04/09/24 Essie Ryan NP [address] [place] [address] PCP - [facility] 12/25/23 Yuriy Martins MD [address] [place] [address] PCP - General Family Medicine 05/29/24 Essie Ryan NP [address] [place] [address] Nurse Practitioner Family Medicine 08/17/23 documented as of this encounter
--- OUTSIDE RECORDS SUMMARY | 2024-11-25 13:29 | XMS_ITS | Encounter Summary ---
Author Organization [facility] Address [address] [facility] [place] [address] Care Team Providers Care Food Service Technician Name Role Phone Yuriy Martins MD Primary Care Provider [phone] Essie Ryan PAPER TUBE CUTTER Unavailable [phone] Essie Ryan PAPER TUBE CUTTER Unavailable [phone] Yuriy Martins MD Primary Care Provider [phone] Reason for Visit * Reason Comments Med Refill Encounter Details Date Type Department Care Team (Late st Contact Info) Description 09/08/2023 Refill [facility] [address] [place] [address] Essie Ryan, PAPER TUBE CUTTER [address] [place] [address] Mixed hyperlipidemia (CMS/HCC) (Primary Dx) Social History Tobacco Use Types [...] declined 06/14/2023 How often do you attend yarsani or judaism serv ices? Patient declined 06/14/2023 Do you belong to any clubs o r organizations such as yarsani groups, unions, fraternal or athletic groups, or [...] Recorded Patient Health Questionnaire-2 Score 2 07/13/2023 [facility] - Occupational [...] place to sleep or slept in a long-term (including now)? No 06/14/2023 Comments Unknown Sex and Gender Information Value Date Recorded Sex Assigned at Not on file Legal Sex Female 7:01 PM EDT Gender Identity Not on file Sexual Orientation Not on file documented as of this encounter Miscellaneous Notes * Telephone Encounter - Essie Ryan NP - 09/11/2023 7:35 PM EDT This patient needs to have her cholesterol levels drawn, that were ordered in 06/2023 [place] documented in this encounter Plan of Treatment Upcoming Encounters Date Type Department Care Team (Late st Contact Info) Description 01/01/2025 1:00 PM EDT Office Visit [facility] [address] [place] [address] Essie Ryan NP [address] [place] [address] documented as of this encounter Visit Diagnoses Diagnosis Mixed hyperlipidemia (CMS/HCC)- Primary Mixed hyperlipidemia documented in this encounter Care Teams Food Service Technician Relationship Specialty Start Date End Date Yuriy Martins MD [address] [place] [address] PCP - General Family Medicine 08/17/23 04/09/24 Essie Ryan NP [address] [place] [address] PCP - [facility] 12/25/23 Yuriy Martins MD [address] [place] [address] PCP - General Family Medicine 05/29/24 Essie Ryan NP [address] [place] [address] Nurse Practitioner Family Medicine 08/17/23 documented as of this encounter
--- OUTSIDE RECORDS SUMMARY | 2024-11-25 13:30 | XMS_ITS | Encounter Summary ---
Author Organization [facility] Address [address] [place] [address] Care Team Providers Care Immunology Specialist Name Role Phone Yuriy Martins MD Primary Care Provider [phone] Essie Ryan WAREHOUSE STOCKER Unavailable [phone] Essie Ryan WAREHOUSE STOCKER Unavailable [phone] Yuriy Martins MD Primary Care Provider [phone] Encounter Details Date Type Department Care Team (Late st Contact Info) Description 12/27/2023 Clinisync Result Encounter [facility] External Department Unsolicited [...] declined 06/14/2023 How often do you attend gnosticism or samaritan serv ices? Patient declined 06/14/2023 Do you belong to any clubs o r organizations such as gnosticism groups, unions, fraternal or athletic groups, or [...] Recorded Patient Health Questionnaire-2 Score 0 11/08/2023 [facility] - Occupational Stress Questionnaire Answer [...] place to sleep or slept in a snf (including now)? No 06/14/2023 Comments Unknown Sex [...] EDT Office Visit [facility] [address] [place] [address] Essie Ryan NP [address] [place] [address] documented as of this encounter Procedures Procedure Name Priority Date/Time Associated Diagnosis Comments MR LUMBAR SPINE WO CON 12/27/2023 8:25 PM EDT documented in this encounter Results * MR LUMBAR SPINE WO CON (12/27/2023 8:25 PM EDT) Anatomical Region Laterality Modality Other 12/27/2023 8:25 PM EDT Narrative 12/27/2023 8:28 PM EDT The [address] [address] Magnetic Resonance Report Signed Patient: STACEY FIGUEROA MR#: [id number] : 1975 Acct:[id number] Age/Sex: 48 / F ADM Date: 12/27/23 Loc: MRI Attending Dr: Angel Delgado M.D. Ordering Physician: Angel Delgado M.D. Date of Service: 12/27/23 Procedure(s): MR lumbar spine wo con Accession Number(s): [id number] cc: Essie Ryan NP; Angel Delgado M.D. [place] [address] Patient Name: STACEY FIGUEROA MRN: [facility]:[id number] date: 1975 Sex: F Assigned Patient Location: MRI Current Patient Location: MRI Accession/Order Number: [id number] Exam Date: 12/27/2023 07:00 Report Date: 12/27/2023 20:25 At the request of: ANGEL DELGADO Procedure: MR lumbar spine wo con EXAM: MR lumbar spine wo con HISTORY: Radiculopathy of lumbar region, M54.16. Intermittent lumbar spine pain along with right hip pain for 3 years. No recent injury. COMPARISON: Prior lumbar spine MRI from 10/27/2021. TECHNIQUE: Multiplanar and multisequence imaging of the lumbar spine was performed without contrast. FINDINGS: Motion artifact mildly degrades evaluation on this study. No acute fracture or spondylolisthesis is evident. There is disc desiccation at L3-L4 and L4-L5. Heterogeneity of the bone marrow signal is consistent with mixed red and fatty marrow. No acute abnormality is identified involving visualized intrapelvic or intra-abdominal structures. The visualized aorta is normal in diameter. The upper sacrum is intact. There are no pars defects. The conus terminates at the T12-L1 level L5-S1: Moderate to severe left and mild right-sided facet arthropathy is evident. There is a minimal disc bulge without central or foraminal stenosis. L4-L5: There is a mild diffuse disc bulge and moderate facet arthropathy without central or foraminal stenosis. L3-L4: There is a mild disc bulge and mild facet arthropathy without central or foraminal stenosis. L2-L3: There is no focal disc herniation or central or foraminal stenosis. L1-L2: There is no focal disc herniation or central or foraminal stenosis. MR/MR lumbar spine wo con IMPRESSION: 1. Mild discogenic change and associated facet arthropathy in the lumbar spine as described above. There is no central or foraminal stenosis at any level. 2. No fracture or spondylolisthesis. Electronically authenticated by: JEFF VILLALOBOS Date: 12/27/2023 20:25 Dictated By: Jeff Villalobos M.D. Signed By: 12/27/232027 DD/ 24 TD/TT: Assistant Foreman: Procedure Note Radiology, Radiologist, MD - 12/27/2023 [place] [address] Magnetic Resonance Report Signed Patient: STACEY FIGUEROA AMR#: [id number] : 1975Acct:[id number] Age/Sex: 48 / FADM Date: 12/27/23 Loc: MRI Attending Dr: Angel Delgado M.D. Ordering Physician: Angel Delgado M.D. Date of Service: 12/27/23 Procedure(s): MR lumbar spine wo con Accession Number(s): [id number] cc: Essie Ryan WAREHOUSE STOCKER; Angel Delgado M.D. The [place] [id number] Patient Name: STACEY FIGUEROA MRN: [id number] date: 1975 Sex: F Assigned Patient Location: MRI Current Patient Location: MRI Accession/Order Number: [id number] Exam Date: 12/27/2023 07:00 Report Date: 12/27/2023 20:25 At the request of: ANGEL DELGADO Procedure: MR lumbar spine wo con EXAM: MR lumbar spine wo con HISTORY: Radiculopathy of lumbar region, M54.16. Intermittent lumbar spine pain along with right hip pain for 3 years. No recent injury. COMPARISON: Prior lumbar spine MRI from 10/27/2021. TECHNIQUE: Multiplanar and multisequence imaging of the lumbar spine was performed without contrast. FINDINGS: Motion artifact mildly degrades evaluation on this study. Noacute fracture or spondylolisthesis is evident. There is disc desiccation atL3-L4 and L4-L5. Heterogeneity of the bone marrow signal is consistent withmixed red and fatty marrow. No acute abnormality is identified involving visualized intrapelvic or intra-abdominal structures. The visualized aorta is normal in diameter.The upper sacrum is intact. There are no pars defects. The conus terminates atthe T12-L1 level L5-S1: Moderate to severe left and mild right-sided facet arthropathy is evident. There is a minimal disc bulge without central or foraminalstenosis. L4-L5: There is a mild diffuse disc bulge and moderate facet arthropathy without central or foraminal stenosis. L3-L4: There is a mild disc bulge and mild facet arthropathy withoutcentral or foraminal stenosis. L2-L3: There is no focal disc herniation or central or foraminal stenosis. L1-L2: There is no focal disc herniation or central or foraminal stenosis. MR/MR lumbar spine wo con IMPRESSION: 1. Mild discogenic change and associated facet arthropathy in the lumbarspine as described above. There is no central or foraminal stenosis at anylevel. 2. No fracture or spondylolisthesis. Electronically authenticated by: JEFF VILLALOBOS Date: 12/27/2023 20:25 Dictated By: Jeff Villalobos M.D. Signed By:12/27/232027 DD/ 24 TD/TT: Assistant Foreman: us Generic External Data Provider [facility] Final Result documented in this encounter Visit Diagnoses Not on filedocumented in this encounter Care Teams Immunology Specialist Relationship Specialty Start Date End Date Yuriy Martins MD [address] [place] [address] PCP - General Family Medicine 08/17/23 04/09/24 Essie Ryan NP [address] [place] [address] PCP - [facility] 12/25/23 Yuriy Martins MD [address] [place] [address] PCP - General Family Medicine 05/29/24 Essie Ryan NP [address] [place] [address] Nurse Practitioner Family Medicine 08/17/23 documented as of this encounter
--- OUTSIDE RECORDS SUMMARY | 2024-11-25 13:30 | XMS_ITS | Encounter Summary ---
Author Organization [facility] Address [address] [place] [address] Care Team Providers Care Crystal Gazer Name Role Phone Yuriy Martins MD Primary Care Provider [phone] Essie Ryan GROUP FITNESS MANAGER Unavailable [phone] Essie Ryan GROUP FITNESS MANAGER Unavailable [phone] Yuriy Martins MD Primary Care Provider [phone] Encounter Details Date Type Department Care Team (Late st Contact Info) Description 03/27/2024 Orders Only [facility] [address] [place] [address] Essie Ryan NP [address] [place] [address] Social History Tobacco Use Types Packs/Day Years [...] declined 06/14/2023 How often do you attend gnosticist or hoahaoism serv ices? Patient declined 06/14/2023 Do you belong to any clubs o r organizations such as gnosticist groups, unions, fraternal or athletic groups, or [...] Score 0 11/08/2023 [facility] - Occupational Stress Questionnaire [...] place to sleep or slept in a group home (including now)? No 06/14/2023 Comments Unknown Sex and Gender Information Value Date Recorded Sex Assigned at Not on file Legal Sex Female 7:01 PM EDT Gender Identity Not on file Sexual Orientation Not on file documented as of this encounter Plan of Treatment Upcoming Encounters Date Type Department Care Team (Late st Contact Info) Description 01/01/2025 1:00 PM EDT [facility] [address] [place] [address] Essie Ryan NP [address] [place] [address] documented as of this encounter Procedures Procedure Name Priority Date/Time Associated Diagnosis Comments MRI HIP RT WITHOUT CONTRAST Routine 03/27/2024 4:20 PM EDT documented in this encounter Results * MRI HIP RT WITHOUT CONTRAST (03/27/2024 4:20 PM EDT) Anatomical Region Laterality Modality Radiographic Francheska ging us Essie Ryan NP IMG XR PROCEDURES Final Result documented in this encounter Visit Diagnoses Not on filedocumented in this encounter Care Teams Crystal Gazer Relationship Specialty Start Date End Date Yuriy Martins MD [address] [place] [address] PCP - General Family Medicine 08/17/23 04/09/24 Essie Ryan NP [address] [place] [address] PCP - [facility] 12/25/23 Yuriy Martins MD [address] [place] [address] PCP - General Family Medicine 05/29/24 Essie Ryan NP [address] [place] [address] Nurse Practitioner Family Medicine 08/17/23 documented as of this encounter
--- OUTSIDE RECORDS SUMMARY | 2024-11-25 13:30 | XMS_ITS | Encounter Summary ---
Author Organization [facility] Address [id number] [address] [place] [address] Care Team Providers Care Residential Property Consultant Name Role Phone CharliEssie ha Magdaleno SCREENING TECH-DIRECTOR INSTRUMENTATION Primary Care Provider Encounter Details Date Type Department Care Team (Late st Contact Info) Description 03/12/2024 Orders Only [facility] [address] [place] [address] External, Scanning Provider Social History Tobacco Use Types Packs/Day Years [...] as of this encounter Plan of Treatment Not on file documented as of this encounter Procedures Procedure Name Priority Date/Time Associated Diagnosis Comments POLYSOMNOGRAPHY 4 OR MORE PARAMETERS Routine 03/12/2024 11:33 AM EDT documented in this encounter Results * PSG Diagnostic (03/12/2024 11:33 AM EDT) us Scanning Provider External [facility] ORDERABL ES Final Result MANUALLY TRANSCRIBED RESULTS documented in this encounter Visit Diagnoses Not on filedocumented in this encounter Care Teams Residential Property Consultant Relationship Specialty Start Date End Date Essie Ryan, SCREENING TECH-DIRECTOR INSTRUMENTATION PCP - General Nurse Practitioner 10/03/18 documented as of this encounter
--- OUTSIDE RECORDS SUMMARY | 2024-11-25 13:30 | XMS_ITS | Encounter Summary ---
Author Organization [facility] Address [address] [place], [place] [address] Care Team Providers Care Virology Teacher Name Role Phone CharliEssie ha Fely BAH Primary Care Provider Adán Torres DO Unavailable [phone] Dany ARDON MD, [facility] Unavailable + Angel Delgado DO Unavailable [phone] Source Comments In the event this information is protected by the Federal Confidentiality of Alcohol and Drug AbusePatient Records regulations: The Federal rules restrict any use of the information to criminally investigate or prosecute any alcohol or drug abuse patient.[facility] Encounter Details Date Type Department Care Team (Late st Contact Info) Description 09/17/2024 Get Medical Advice Orthopaedics [address] [place], [place] [phone] Yanni Spring MD [address] [place] [address] Medicine Social History Tobacco Use Types Packs/Day Years Used Date Smoking Tobacco: Never Smokeless Tobacco: Never Alcohol Use Standard Drinks/Week Comments No 0 (1 standard drink = 0.6 oz pur e alcohol) [facility] Utilities Answer Date Recorded In the past 12 months has th e electric, gas, oil, or water company threatened to shut off services in your home? No 07/01/2024 PHQ-2 Answer Date Recorded PHQ-2 score 0 07/23/2024 Hunger Vital Sign Answer Date Recorded Within [...] any time in the past 12 m [facility], were you homeless or living in a [place] health care facility (including now)? No 07/01/2024 Area Deprivation Index Answer Date Erik rded National Score (1-100), lower number is lower ri sk 93 03/15/2024 State Score (1-10), lower number is lower risk 9 03/15/2024 Data from: https://www.neighborhoodatlas.medicine.[facility].edu/. Last address used for calculation [address] [...] Entry Date Author No 12/16/2020 1:10 PM EDMeg Mari i, RN documented in this encounter Plan of Treatment Not on file documented as of this encounter Visit Diagnoses Not on filedocumented in this encounter Care Teams Virology Teacher Relationship Specialty Start Date End Date Essie Ryan CNP PCP - General Family Medicine 07/22/16 Adán Torres DO Obstetrics 07/22/16 Alexis Saenz II, MD [address] [place] [address] Referring Orthopedics 12/13/21 Angel Delgado DO [address] [place] [address] Referring Orthopedics 03/08/24 documented as of this encounter
--- OUTSIDE RECORDS SUMMARY | 2024-11-25 13:30 | XMS_ITS | Encounter Summary ---
Author Organization [facility] Address [address] [place], [place] [address] Care Team Providers Care Healthcare Prof Name Role Phone CharliEssie ha Fely BAH Primary Care Provider Adán Torres DO Unavailable [phone] Dany ARDON MD, [facility] Unavailable + Angel Delgado DO Unavailable [phone] Source Comments In the event this information is protected by the Federal Confidentiality of Alcohol and Drug AbusePatient Records regulations: The Federal rules restrict any use of the information to criminally investigate or prosecute any alcohol or drug abuse patient.[facility] Encounter Details Date Type Department Care Team (Late st Contact Info) Description 09/30/2024 Get Medical Advice Orthopaedics [address] [place], [place] [phone] Yanni Spring MD [address] [place] [address] Visit Social History Tobacco Use Types Packs/Day Years Used Date Smoking Tobacco: Never Smokeless Tobacco: Never Alcohol Use Standard Drinks/Week Comments No 0 (1 standard drink = 0.6 oz pur e alcohol) [facility] Utilities Answer Date Recorded In the [...] any time in the past 12 m [facility], were you homeless or living in a alf (including now)? No 07/01/2024 Area Deprivation Index Answer Date Erik rded National Score (1-100), lower number is lower ri sk 93 03/15/2024 State Score (1-10), lower number is lower risk 9 03/15/2024 Data from: https://www.neighborhoodatlas.medicine.[facility].edu/. Last address used for calculation [address] [...] on filedocumented in this encounter Care Teams Healthcare Prof Relationship Specialty Start Date End Date Essie Ryan CNP PCP - General Family Medicine 07/22/16 Adán Torres DO Obstetrics 07/22/16 Alexis Saenz II, MD [address] [place] [address] Referring Orthopedics 12/13/21 Angel Delgado DO [address] [place] [address] Referring Orthopedics 03/08/24 documented as of this encounter
--- OUTSIDE RECORDS SUMMARY | 2024-11-25 13:30 | XMS_ITS | Encounter Summary ---
Author Organization [facility] Address [address] [place] [address] Care Team Providers Care Radio Mechanic Helper Name Role Phone Yuriy Martins MD Primary Care Provider [phone] Essie Ryan TRENCH SHOVEL OPERATOR Unavailable [phone] Essie Ryan NP Unavailable [phone] Yuriy Martins MD Primary Care Provider [phone] Encounter Details Date Type Department Care Team (Late st Contact Info) Description 08/17/2023 Clinisync Result Encounter [facility] External Department Unsolicited Essie Ryan, TRENCH SHOVEL OPERATOR [address] [place] [address] Social History Tobacco Use Types Packs/Day Years [...] declined 06/14/2023 How often do you attend bahai or denominational serv ices? Patient declined 06/14/2023 Do you belong to any clubs o r organizations such as bahai groups, unions, fra422 Group or athletic groups, or school groups? Patient [...] Recorded Patient Health Questionnaire-2 Score 2 07/13/2023 [facility] - Occupational Stress Questionnaire Answer Date [...] EDT Office Visit [facility] [address] [place] [address] Essie Ryan NP [address] [place] [address] documented as of this encounter Procedures Procedure Name Priority Date/Time Associated Diagnosis Comments MM TOMOSYNTHESIS SCREENING BI 08/17/2023 7:38 AM EST documented in this encounter Results * MM TOMOSYNTHESIS SCREENING BI (08/17/2023 7:38 AM EST) Anatomical Region Laterality Modality Other 08/17/2023 7:38 AM EST Narrative 08/17/2023 7:39 AM EST The [address] [address] Mammography Report Signed Patient: STACEY FIGUEROA MR#: [id number] : 1975 Acct:[id number] Age/Sex: 48 / F ADM Date: 08/16/23 Loc: MAMMO Attending Dr: Essie Ryan NP Ordering Physician: Essie Ryan NP Results: Date of Service: 08/16/23 Follow Up: Procedure(s): MM tomosynthesis screening BI Accession Number(s): [id number] cc: Essie Ryan NP Patient Name: STACEY FIGUEROA MR#: [id number] : 1975 Exam Date: 08/16/2023 Ordering Doctor: NIURKA Ryan CNP RADIOLOGY REPORT PROCEDURE: MM TOMOSYNTHESIS SCREENING BI COMPARISON: MG MAMM SCREEN 3D GRACIE CAD, 02/09/2022. MG MAMM SCREEN 3D GRACIE CAD, 09/17/2020. MG MAMM SCREEN GRACIE W CAD, 12/25/2018. INDICATIONS: Screening Calculator Name NCI Breast Cancer Risk Assessment Tool 5 Year Breast Cancer Risk 1.80% Lifetime Breast Cancer Risk 18.20% Personal Breast Cancer No Personal Ovarian Cancer No Treatments None Family Cancers Aunt-maternal with breast cancer at age 40; Aunt-maternal with breast cancer at age 60; Aunt-maternal with breast cancer at age 60; Mother with breast cancer at age 65; Father with throat cancer at age 73; Aunt-paternal with colon cancer at age 55. LOCATION: [facility] BREAST COMPOSITION: Scattered areas fibroglandular [...] PALPABLE LUMP SHOULD BE BIOPSIED. Dictated by: Dawson Gross M.D. on 08/17/2023 at 07:34 Approved by: Dawson Gross M.D. on 08/17/2023 at 07:38 Dictated By: Dawson Gross M.D. Signed By: 08/17/23 0739 DD/ 0738 TD/TT: Field Trainer: Procedure Note Radiology, Radiologist, - 08/17/2023 [place] [address] Mammography Report Signed Patient: STACEY FIGUEROA AMR#: [id number] : 1975Acct:[id number] Age/Sex: 48 / FADM Date: 08/16/23 Loc: MAMMO Attending Dr: Essie Ryan NP Ordering Physician: Essie Ryan NPResults: Date of Service: 08/16/23Follow Up: Procedure(s): MM tomosynthesis screening BI Accession Number(s): [id number] cc: Essie Ryan NP Patient Name: STACEY FIGUEROA MR#: [id number] : 1975 Exam Date: 08/16/2023 Ordering Doctor: NIURKA Ryan NET FRONT END DEVELOPER RADIOLOGY REPORT PROCEDURE: MM TOMOSYNTHESIS SCREENING BI COMPARISON: MG MAMM SCREEN 3D GRACIE CAD, 02/09/2022. MG MAMM SCREEN 3DBIL CAD, 09/17/2020. MG MAMM SCREEN GRACIE W CAD, 12/25/2018. INDICATIONS: Screening Calculator Name NCI Breast Cancer Risk Assessment Tool 5 Year Breast Cancer Risk 1.80% Lifetime Breast Cancer Risk 18.20% Personal Breast Cancer No Personal Ovarian Cancer No Treatments None Family Cancers Aunt-maternal with breast cancer at age 40; Aunt-maternal with breast cancer at age 60; Aunt-maternal with breastcancer at age 60; Mother with breast cancer at age 65; Father with throat cancerat age 73; Aunt-paternal with colon cancer at age 55. LOCATION: [facility] BREAST COMPOSITION: Scattered areas fibroglandular density. FINDINGS: DIAGNOSTIC CATEGORY 2--BENIGN FINDING: RIGHT BREAST: No significant suspicious finding. No significant changehas occurred. LEFT BREAST: No significant suspicious finding. Scatteredbenign-appearing lymph nodes are present. No significant change has occurred. RECOMMENDATIONS: ROUTINE MAMMOGRAM AND CLINICAL EVALUATION IN 12 MONTHS. PLEASE NOTE: A NORMAL MAMMOGRAM DOES NOT EXCLUDE THE POSSIBILITY OFBREAST CANCER. A CLINICALLY SUSPICIOUS PALPABLE LUMP SHOULD BE BIOPSIED. Dictated by: Dawson Gross M.D. on 08/17/2023 at 07:34 Approved by: Dawson Gross M.D. on 08/17/2023 at 07:38 Dictated By: Dawson Gross M.D. Signed By:08/17/23 0739 DD/ TD/TT: Field Trainer: us Essie Ryan NP [facility] Final Result documented in this encounter Visit Diagnoses Not on filedocumented in this encounter Care Teams Radio Mechanic Helper Relationship Specialty Start Date End Date Yuriy Martins MD [address] [place] [address] PCP - General Family Medicine 08/17/23 04/09/24 Essie Ryan NP [address] [place] [address] PCP - [facility] 12/25/23 Yuriy Martins MD [address] [place] [address] PCP - General Family Medicine 05/29/24 Essie Ryan NP [address] [place] [address] Nurse Practitioner Family Medicine 08/17/23 documented as of this encounter
--- OUTSIDE RECORDS SUMMARY | 2024-11-25 13:30 | XMS_ITS | Encounter Summary ---
Author Organization [facility] Address [address] [place] [address] Care Team Providers Care Desizing Machine Offbearer Name Role Phone Yuriy Martins MD Primary Care Provider [phone] Unallocated, Noms Provider Primary Care Provi singh Yuriy Martins MD Primary Care Provider [phone] Essie Ryan CERAMIC DESIGN ENGINEER Unavailable [phone] Essie Ryan CERAMIC DESIGN ENGINEER Unavailable [phone] Yuriy Martins MD Primary Care Provider [phone] Encounter Details Date Type Department Care Team (Late st Contact Info) Description 07/13/2023 Abstract [facility] [address] [place] [address] Essie Ryan CERAMIC DESIGN ENGINEER [address] [place] [address] Social History Tobacco Use Types Packs/Day Years [...] declined 06/14/2023 How often do you attend anabaptist or anabaptism serv ices? Patient declined 06/14/2023 Do you belong to any clubs o r organizations such as anabaptist groups, unions, fraternal or athletic groups, or [...] Recorded Patient Health Questionnaire-2 Score 2 07/13/2023 [facility] [place] of Occupat ional Health - Occupational Stress [...] place to sleep or slept in a custodial (including now)? No 06/14/2023 Comments Unknown Sex [...] Little interest or pleasure in doing things Several days 07/13/2023 9:36 AM MARSHALL CONNER Feeling down, depressed, or hopeless Several days 07/13/2023 9:36 AM MARSHALL CONNER Patient Health Questionnaire -2 Score 2 07/13/2023 9:36 AM MARSHALL CONNER * If you checked off any problems on this questionnaire so far, Question Answer Date of Assessment Author How difficult have these problems made it for you to do your work, take care of things at home, or get along with other people? Somewhat difficult 07/13/2023 9:36 AM MARSHALL CONNER documented as of this encounter Plan of Treatment Upcoming Encounters Date Type Department Care Team (Late st Contact Info) Description 01/01/2025 1:00 PM EDT Office Visit [facility] [address] [place] [address] Essie Ryan, NETO [address] [place] [address] documented as of this encounter Visit Diagnoses Not on filedocumented in this encounter Care Teams Desizing Machine Offbearer Relationship Specialty Start Date End Date Yuriy Martins MD PCP - General Cardiology 11/29/22 07/16/23 Unallocated, Osmar Johnson MD [address] [place] [address] PCP - General Family Medicine 07/17/23 08/16/23 Yuriy Martins MD [address] [place] [address] PCP - General Family Medicine 08/17/23 04/09/24 Essie Ryan NP [address] [place] [address] PCP - [facility] 12/25/23 Yuriy Martins MD [address] [place] [address] PCP - General Family Medicine 05/29/24 Essie Ryan NP [address] [place] [address] Nurse Practitioner Family Medicine 08/17/23 documented as of this encounter
--- OUTSIDE RECORDS SUMMARY | 2024-11-25 13:30 | XMS_ITS | Encounter Summary ---
Author Organization [facility] Address [address] [place] [address] Care Team Providers Care Pipe Cleaner Name Role Phone Yuriy Martins MD Primary Care Provider [phone] Essie Ryan GLOBAL MARKETING OPERATIONS MANAGER Unavailable [phone] Essie Ryan GLOBAL MARKETING OPERATIONS MANAGER Unavailable [phone] Yuriy Martins MD Primary Care Provider [phone] Encounter Details Date Type Department Care Team (Late st Contact Info) Description 03/27/2024 Clinisync Result Encounter [facility] External Department Unsolicited [...] declined 06/14/2023 How often do you attend zoroastrianism or pentecostal serv ices? Patient declined 06/14/2023 Do you belong to any clubs o r organizations such as zoroastrianism groups, unions, fraternal or athletic groups, or [...] Recorded Patient Health Questionnaire-2 Score 0 11/08/2023 [facility] Questionnaire [...] EDT Office Visit [facility] [address] [place] [place] [address] Essie Ryan NP [address] [place] [address] documented as of this encounter Procedures Procedure Name Priority Date/Time Associated Diagnosis Comments MR HIP RT WO CON 03/27/2024 3:34 PM EDT documented in this encounter Results * MR HIP RT WO CON (03/27/2024 3:34 PM EDT) Anatomical Region Laterality Modality Other 03/27/2024 3:34 PM EDT Narrative 03/27/2024 3:37 PM EDT The [address] [address] Magnetic Resonance Report Signed Patient: STACEY FIGUEROA MR#: [id number] : 1975 Acct:[id number] Age/Sex: 48 / F ADM Date: 03/26/24 Loc: MRI Attending Dr: CharyStaff Physician Powell Ordering Physician: Ilia Reno M.D. Date of Service: 03/26/24 Procedure(s): MR hip RT wo con Accession Number(s): [id number] cc: Essie Ryan NP; Ilia Reno M.D. [place] [address] Patient Name: STACEY FIGUEROA MRN: [facility]:[id number] date: 1975 Sex: F Assigned Patient Location: MRI Current Patient Location: Accession/Order Number: [id number] Exam Date: 03/26/2024 14:05 Report Date: 03/27/2024 15:34 At the request of: CHARYSTAFF PHYSICIAN Procedure: MR hip RT wo con HISTORY: Chronic right hip pain. Evaluate for arthritis. MR hip RT wo con: 03/26/2024 2:05 PM EDT COMPARISON: CT scan abdomen and pelvis 09/21/2022 and Radiographs right hip 08/29/2023. TECHNIQUE: Multiplanar, multisequence MRI images of the pelvis and right hip were obtained without contrast. FINDINGS: The bone marrow signal intensity is age appropriate. There is severe facet joint arthropathy again seen on the left at the L5-S1 level. There are moderate to severe degenerative changes again seen of the anteroinferior aspect of the right sacroiliac joint with a small amount of adjacent subchondral bone marrow edema in the anteroinferior aspect of the right sacral ala. No significant degenerative change of the left sacroiliac joint is seen. On the large wurfx-du-qnpk images of the pelvis there appear to be at least mild degenerative changes of the left hip joint with prominent osteophyte formation along the lateral and posterolateral aspect of the acetabulum. There is no evidence of avascular necrosis or fracture of the right hip. The superolateral aspect of the labrum of the right hip is diminutive in size and blunted. There is prominent osteophyte formation along the lateral and posterolateral aspect of the right acetabulum. The right acetabulum appears mildly hypoplastic with uncovering of the lateral aspect of the right femoral head. There is at least mild joint space narrowing involving the superolateral aspect of the right hip joint. There is no joint effusion of the right hip. There is moderate tendinopathy of the anterior right gluteus medius tendon at its insertion on the greater trochanter. There is a moderate amount of soft tissue edema adjacent to the tendon and greater trochanter in this region. There is also mild tendinopathy of the distal right gluteus minimus tendon. No iliopsoas tendinopathy or iliopsoas bursitis. There is moderate tendinopathy of the right common hamstring tendon complex at its origin from the ischial tuberosity. MR/MR hip RT wo con IMPRESSION: 1. There is mild tendinopathy of the distal right gluteus minimus tendon and moderate tendinopathy of the anterior distal right gluteus medius tendon at their insertion on the greater trochanter with an adjacent moderate greater trochanteric bursitis in this region. 2. Moderate tendinopathy of the right common hamstring tendon complex at its origin from the ischial tuberosity. 3. 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 There are at least mild degenerative changes of the superolateral aspect of the right hip with a degenerative tear of the superolateral aspect of the labrum. There is an associated large osteophyte projecting from the lateral and posterolateral aspect of the right acetabulum. 4. On the large wesrp-ye-nurv images of the pelvis there are moderate to severe degenerative changes of the right sacroiliac joint and there appear to be at least mild degenerative changes of the left hip joint. Electronically authenticated by: HARPER VELASQUEZ Date: 03/27/2024 15:34 Dictated By: Harper Velasquez M.D. Signed By: 03/27/24 1537 DD/ 153 TD/TT: Land Law Examiner: Procedure Note Radiology, Radiologist, - 03/27/2024 [place] [address] Magnetic Resonance Report Signed Patient: STACEY FIGUEROA [facility]#: [id number] : 1975Acct:[id number] Age/Sex: 48 / FADM Date: 03/26/24 Loc: MRI Attending Dr: Diandra-Staff Physician Powell Ordering Physician: Ilia Reno M.D. Date of Service: 03/26/24 Procedure(s): MR hip RT wo con Accession Number(s): [id number] cc: Essie Ryan NP; PhysicianIlia M.D. [place] [id number] Patient Name: STACEY FIGUEROA MRN: [facility]:[id number] date: 1975 Sex: F Assigned Patient Location: MRI Current Patient Location: Accession/Order Number: [id number] Exam Date: 03/26/2024 14:05 Report Date: 03/27/2024 15:34 At the request of: NON-STAFF PHYSICIAN Procedure: MR hip RT wo con HISTORY: Chronic right hip pain. Evaluate for arthritis. MR hip RT wo con: 03/26/2024 2:05 PM EDT COMPARISON: CT scan abdomen and pelvis 09/21/2022 and Radiographs right hip 08/29/2023. TECHNIQUE: Multiplanar, multisequence MRI images of the pelvis and righthip were obtained without contrast. FINDINGS: The bone marrow signal intensity is age appropriate. There issevere facet joint arthropathy again seen on the left at the L5-S1 level. Thereare moderate to severe degenerative changes again seen of the anteroinferior aspect of the right sacroiliac joint with a small amount of adjacent subchondralbone marrow edema in the anteroinferior aspect of the right sacral ala. No significant degenerative change of the left sacroiliac joint is seen. Onthe large pqonk-bq-ougc images of the pelvis there appear to be at least mild degenerative changes of the left hip joint with prominent osteophyteformation along the lateral and posterolateral aspect of the acetabulum. There is no evidence of avascular necrosis or fracture of the right hip.The superolateral aspect of the labrum of the right hip is diminutive in sizeand blunted. There is prominent osteophyte formation along the lateral and posterolateral aspect of the right acetabulum. The right acetabulumappears mildly hypoplastic with uncovering of the lateral aspect of the rightfemoral head. There is at least mild joint space narrowing involving thesuperolateral aspect of the right hip joint. There is no joint effusion of the righthip. There is moderate tendinopathy of the anterior right gluteus medius tendonat its insertion on the greater trochanter. There is a moderate amount ofsoft tissue edema adjacent to the tendon and greater trochanter in this region. There is also mild tendinopathy of the distal right gluteus minimustendon. No iliopsoas tendinopathy or iliopsoas bursitis. There is moderatetendinopathy of the right common hamstring tendon complex at its origin from the ischial tuberosity. MR/MR hip RT wo con IMPRESSION: 1. There is mild tendinopathy of the distal right gluteus minimus tendonand moderate tendinopathy of the anterior distal right gluteus medius tendonat their insertion on the greater trochanter with an adjacent moderategreater trochanteric bursitis in this region. 2. Moderate tendinopathy of the right common hamstring tendon complex atits origin from the ischial tuberosity. 3. 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 There areat least mild degenerative changes of the superolateral aspect of the righthip with a degenerative tear of the superolateral aspect of the labrum. Thereis an associated large osteophyte projecting from the lateral and posterolateral aspect of the right acetabulum. 4. On the large ytmfi-qg-jvha images of the pelvis there are moderate to severe degenerative changes of the right sacroiliac joint and there appear to beat least mild degenerative changes of the left hip joint. Electronically authenticated by: HARPER VELASQUZE Date: 03/27/2024 15:34 Dictated By: Harper Velasquez M.D. Signed By:03/27/24 1537 DD/ 33 TD/TT: Land Law Examiner: Generic External Data Provider [facility] Final Result documented in this encounter Visit Diagnoses Not on filedocumented in this encounter Care Teams Pipe Cleaner Relationship Specialty Start Date End Date Yuriy Martins MD [address] [place] [address] PCP - General Family Medicine 08/17/23 04/09/24 Essie Ryan NP [address] [place] [address] PCP - [facility] 12/25/23 Yuriy Martins MD [address] [place] [address] PCP - General Family Medicine 05/29/24 Essie Ryan NP [address] [place] [address] Nurse Practitioner Family Medicine 08/17/23 documented as of this encounter
--- OUTSIDE RECORDS SUMMARY | 2024-11-25 13:30 | XMS_ITS | Encounter Summary ---
Author Organization [facility] Address [address] [place], [place] [address] Care Team Providers Care Precision Lens Grinder Name Role Phone CharliEssie ha Fely BAH Primary Care Provider [phone] Adán Torres DO Unavailable [phone] Dany ARDON MD, [facility] Unavailable + Angel Delgado DO Unavailable [phone] Source Comments In the event this information is protected by the Federal Confidentiality of Alcohol and Drug AbusePatient Records regulations: The Federal rules restrict any use of the information to criminally investigate or prosecute any alcohol or drug abuse patient.[facility] Encounter Details Date Type Department Care Team (Late st Contact Info) Description 09/30/2024 Patient Msg Orthopaedics [address] [place], [place] [id number] Yanni Spring MD [address] [place] [address] Appointment Request Social History Tobacco Use Types Packs/Day Years Used Date Smoking Tobacco: Never Smokeless Tobacco: Never Alcohol Use Standard Drinks/Week Comments No 0 (1 standard drink = 0.6 oz pur e alcohol) [facility] Utilities Answer Date Recorded In the [...] any time in the past 12 m [facility], were you homeless or living in a halfway (including now)? No 07/01/2024 Area Deprivation Index Answer Date Erik rded National Score (1-100), lower number is lower ri sk 93 03/15/2024 State Score (1-10), lower number is lower risk 9 03/15/2024 Data from: https://www.neighborhoodatlas.medicine.[facility].edu/. Last address used for calculation [address] [...] on filedocumented in this encounter Care Teams Precision Lens Grinder Relationship Specialty Start Date End Date Essie Ryan CNP PCP - General Family Medicine 07/22/16 Adán Torres DO Obstetrics 07/22/16 Alexis Saenz II, MD [address] [place] [address] Referring Orthopedics 12/13/21 Angel Delgado DO [address] [email or web address] [address] Referring Orthopedics 03/08/24 documented as of this encounter
--- OUTSIDE RECORDS SUMMARY | 2024-11-25 13:30 | XMS_ITS | Encounter Summary ---
Author Organization [facility] Address [address] [place] [address] Care Team Providers Care Paper Baling Machine Operator Name Role Phone Yuriy Martins MD Primary Care Provider [phone] Essie Ryan EMPLOYMENT OFFICER Unavailable [phone] Essie Ryan EMPLOYMENT OFFICER Unavailable [phone] Yuriy Martins MD Primary Care Provider [phone] Encounter Details Date Type Department Care Team (Late st Contact Info) Description 03/19/2024 Clinisync Result Encounter [facility] External Department Unsolicited [...] declined 06/14/2023 How often do you attend taoist or hindu serv ices? Patient declined 06/14/2023 Do you belong to any clubs o r organizations such as taoist groups, unions, fraternal or athletic groups, or [...] Recorded Patient Health Questionnaire-2 Score 0 11/08/2023 [facility] - Occupational Stress Questionnaire Answer [...] to sleep or slept in a senior living (including now)? No 06/14/2023 Comments Unknown Sex [...] EDT Office Visit [facility] [address] [place] [address] Essie Ryan NP [address] [place] [address] documented as of this encounter Procedures Procedure Name Priority Date/Time Associated Diagnosis Comments XR HIP 3V PELV+ AP/LAT RT 03/19/2024 9:04 AM EDT documented in this encounter Results * XR HIP 3V PELV+ AP/LAT RT (03/19/2024 9:04 AM EDT) Anatomical Region Laterality Modality Other 03/19/2024 9:04 AM EDT Narrative 03/19/2024 9:14 AM EDT * * *Final Report* * * DATE [...] Mild right hip osteoarthritis, similar to 11/17/2021. Biomedical Engineering Aide: 8eighty Wear Transcribe Date/Time: Mar 19 2024 9:10A Dictated by : MELISSA MODI MD This examination was interpreted and the report reviewed and electronically signed by: MELISSA MODI MD on Mar 19 2024 9:11AM EST [id number]^SI^ACN Procedure Note Radiology, Radiologist, - 03/19/2024 * * *Final Report* * [...] COMPARISON: MR right femur 12/03/2021, right femur hekwbaddknj19/25/2022 RESULT: No acute fracture or osseous alignment. Bilateral superior acetabular osteophytes, slightly more pronounced on the right and similar to prior. Hip joint spaces are maintained bilaterally. Sacroiliac joint spaces and pubic symphysis are also preserved. Facet arthropathy at L5-S1, more pronounced on the left. Redemonstrated postoperative changes in the right lower quadrant. IMPRESSION: Mild right hip osteoarthritis, similar to 11/17/2021. Biomedical Engineering Aide: 8eighty Wear Transcribe Date/Time: Mar 19 2024 9:10A Dictated by : MELISSA MODI MD This examination was interpreted and the report reviewed and electronically signed by: MELISSA MODI MD on Mar 19 2024 9:11AM EST [id number]^SI^ACN us Generic External Data Provider [facility] Final Result documented in this encounter Visit Diagnoses Not on filedocumented in this encounter Care Teams Paper Baling Machine Operator Relationship Specialty Start Date End Date Yuriy Martins MD [address] [place] [address] PCP - General Family Medicine 08/17/23 04/09/24 Essie Ryan NP [address] [place] [address] PCP - [facility] 12/25/23 Yuriy Martins MD [address] [place] [address] PCP - General Family Medicine 05/29/24 Essie Ryan NP [address] [place] [address] Nurse Practitioner Family Medicine 08/17/23 documented as of this encounter
--- OUTSIDE RECORDS SUMMARY | 2024-11-25 13:30 | XMS_ITS | Encounter Summary ---
Author Organization [facility] Address [address] [place] [address] Care Team Providers Care Head Of Geography Name Role Phone Yuriy Martins MD Primary Care Provider [phone] Essie Ryan SOLE RUFFER Unavailable [phone] Essie Ryan SOLE RUFFER Unavailable [phone] Yuriy Martins MD Primary Care Provider [phone] Encounter Details Date Type Department Care Team (Late st Contact Info) Description 01/01/2024 Orders Only [facility] [address] [place] [address] Angel Delgado MD [address] [place] [address] Social History Tobacco Use Types Packs/Day Years [...] declined 06/14/2023 How often do you attend temple or roman catholic serv ices? Patient declined 06/14/2023 Do you belong to any clubs o r organizations such as temple groups, unions, fraternal or athletic groups, or [...] Questionnaire-2 Score 0 11/08/2023 [facility] - Occupational Stress [...] place to sleep or slept in a alf (including now)? No 06/14/2023 Comments Unknown Sex [...] Office Visit [facility] [address] [place] [address] Essie Ryan NP [address] [place] [address] documented as of this encounter Procedures Procedure Name Priority Date/Time Associated Diagnosis Comments MR LUMBAR SPINE WO CONTRAST Routine 01/01/2024 9:46 AM EDT documented in this encounter Results * MR lumbar spine wo contrast (01/01/2024 9:46 AM EDT) Anatomical Region Laterality Modality Spine, L-spine Magnetic Resonan ce Angel Delgado MD IM MRI PROCEDURES Final Result documented in this encounter Visit Diagnoses Not on filedocumented in this encounter Care Teams Head Of Geography Relationship Specialty Start Date End Date Yuriy Martins MD [address] [place] [address] PCP - General Family Medicine 08/17/23 04/09/24 Essie Ryan NP [address] [place] [address] PCP - [facility] 12/25/23 Yuriy Martins MD [address] [place] [address] PCP - General Family Medicine 05/29/24 Essie Ryan, NETO [address] [place] [address] Nurse Practitioner Family Medicine 08/17/23 documented as of this encounter
--- OUTSIDE RECORDS SUMMARY | 2024-11-25 13:30 | XMS_ITS | Encounter Summary ---
Author Organization [facility] Address [address] [place] [address] Care Team Providers Care Octave Board Assembler Name Role Phone Unallocated, Noms Provider Primary Care Provi singh Yuriy Martins MD Primary Care Provider [phone] Essie Ryan GRAPHIC ARTS INSTRUCTOR Unavailable [phone] Essie Ryan NP Unavailable [phone] Yuriy Martins MD Primary Care Provider [phone] Encounter Details Date Type Department Care Team (Late st Contact Info) Description 08/16/2023 Clinisync Result Encounter [facility] Unsolicited Essie Ryna, NETO [address] [place] [id number] Social History Tobacco Use Types Packs/Day Years [...] declined 06/14/2023 How often do you attend caodaism or worship serv ices? Patient declined 06/14/2023 Do you belong to any clubs o r organizations such as caodaism groups, unions, fraternal or athletic groups, or [...] Recorded Patient Health Questionnaire-2 Score 2 07/13/2023 [facility] - Occupational Stress [...] EDT Office Visit [facility] [address] [place] [place] [address] Essie Ryan NP [address] [place] [address] documented as of this encounter Procedures Procedure Name Priority Date/Time Associated Diagnosis Comments CT SINUS WO CON 08/16/2023 8:46 AM EST documented in this encounter Results * CT SINUS WO CON (08/16/2023 8:46 AM EST) Anatomical Region Laterality Modality Other 08/16/2023 8:46 AM EST Narrative 08/16/2023 8:48 [place] [address] CT Scan Report Signed Patient: STACEY FIGUEROA MR#: [id number] : 1975 Acct:[id number] Age/Sex: 48 / F ADM Date: 08/16/23 Loc: [facility] Attending Dr: Essie Ryan GRAPHIC ARTS INSTRUCTOR Ordering Physician: Essie Ryan NP Date of Service: 08/16/23 Procedure(s): CT sinus wo con Accession Number(s): [id number] cc: Essie Ryan NP [address] [address] Patient Name: STACEY FIGUEROA MRN: [id number] date: 1975 Sex: F Assigned Patient Location: [facility] Current Patient Location: [facility] Accession/Order Number: [id number] Exam Date: 08/16/2023 07:40 Report Date: 08/16/2023 08:46 At the request of: ESSIE RYAN Procedure: CT sinus wo con EXAMINATION: CT sinus wo con HISTORY: Chronic Sinusitis COMPARISON: No relevant comparison available. TECHNIQUE: Axial and Coronal CT images were created without and/or with IV contrast as indicated by examination type. Dose reduction techniques were achieved by using automated exposure control and/or adjustment of mA and/or kV according to patient size and/or use of iterative reconstruction technique. FINDINGS: MAXILLARY SINUSES: Mild mucosal thickening bilaterally. Occluded ostiomeatal complex bilaterally. Mucosal thickening. No Ghada cells. ETHMOID SINUSES: Scattered areas of mild mucosal thickening. SPHENOID SINUSES: Minimal mucosal thickening. Retained secretions. FRONTAL SINUSES: Minimal mucosal thickening. Frontal recesses are patent. NASAL FOSSA: 4 mm rightward deviation of the nasal septum. Kaycee bullosa of right middle turbinate. OTHER: Negative. Limited views of the skull base and orbits are unremarkable. CT/CT sinus wo con IMPRESSION: 1. Multifocal mild chronic sinusitis. 2. No fluid or soft tissue within the middle ear bilaterally. Electronically authenticated by: DAWSON GROSS Date: 08/16/2023 08:46 Dictated By: Dawson Gross M.D. Signed By: 08/16/23 0848 DD/ 0846 TD/TT: Child Life Assistant: Procedure Note Radiology, Radiologist, MD - 08/16/2023 [place] [address] CT Scan Report Signed Patient: STACEY FIGUEROA AMR#: [id number] : 1975Acct:[id number] Age/Sex: 48 / FADM Date: 08/16/23 Loc: [facility] Attending Dr: Essie Ryan NP Ordering Physician: Essie Ryan NP Date of Service: 08/16/23 Procedure(s): CT sinus wo con Accession Number(s): [id number] cc: Essie Ryan NP [place] [address] Patient Name: STACEY FIGUEROA MRN: [employer]:[id number] date: 1975 Sex: F Assigned Patient Location: [facility] Current Patient Location: [facility] Accession/Order Number: [id number] Exam Date: 08/16/2023 07:40 Report Date: 08/16/2023 08:46 At the request of: ESSIE RYAN Procedure: CT sinus wo con EXAMINATION: CT sinus wo con HISTORY: Chronic Sinusitis COMPARISON: No relevant comparison available. TECHNIQUE: Axial and Coronal CT images were created without and/or with IV contrast as indicated by examination type. Dose reduction techniques were achieved by using automated exposure control and/or adjustment of mAand/or kV according to patient size and/or use of iterative reconstructiontechnique. FINDINGS: MAXILLARY SINUSES: Mild mucosal thickening bilaterally. Occludedostiomeatal complex bilaterally. Mucosal thickening. No Ghada cells. ETHMOID SINUSES: Scattered areas of mild mucosal thickening. SPHENOID SINUSES: Minimal mucosal thickening. Retained secretions. FRONTAL SINUSES: Minimal mucosal thickening. Frontal recesses are patent. NASAL FOSSA: 4 mm rightward deviation of the nasal septum. Kaycee bullosaof right middle turbinate. OTHER: Negative. Limited views of the skull base and orbits areunremarkable. CT/CT sinus wo con IMPRESSION: 1. Multifocal mild chronic sinusitis. 2. No fluid or soft tissue within the middle ear bilaterally. Electronically authenticated by: DAWSON GROSS Date: 08/16/2023 08:46 Dictated By: Dawson Gross M.D. Signed By:08/16/2348 DD/ TD/TT: Child Life Assistant: us Essie Ryan GRAPHIC ARTS INSTRUCTOR [facility] Final Result documented in this encounter Visit Diagnoses Not on filedocumented in this encounter Care Teams Octave Board Assembler Relationship Specialty Start Date End Date Unallocated, Noms Provider, [address] [place] [address] PCP - General Family Medicine 07/17/23 08/16/23 Yuriy Martins MD [address] [place] [phone] PCP - General Family Medicine 08/17/23 04/09/24 Essie Ryan NP [address] [place] [phone] PCP - [facility] 12/25/23 Yuriy Martins MD [address] [place] [address] PCP - General Family Medicine 05/29/24 Essie Ryan NP [address] [place] [address] Nurse Practitioner Family Medicine 08/17/23 documented as of this encounter
--- OUTSIDE RECORDS SUMMARY | 2024-11-25 13:30 | XMS_ITS | Encounter Summary ---
Author Organization [facility] Address [address] [place], [place] [id number] Care Team Providers Care Urban Planning Teacher Name Role Phone CharliEssie ha Fely BAH Primary Care Provider Adán Torres DO Unavailable [phone] Dany ARDON MD, [facility] Unavailable + Angel Delgado DO Unavailable [phone] Source Comments In the event this information is protected by the Federal Confidentiality of Alcohol and Drug AbusePatient Records regulations: The Federal rules restrict any use of the information to criminally investigate or prosecute any alcohol or drug abuse patient.[facility] Encounter Details Date Type Department Care Team (Late st Contact Info) Description 09/30/2024 Patient Msg Orthopaedics [address] [place], [place] [id number] Yanni Spring MD [address] [place] [address] Appointment Request Social History Tobacco Use Types Packs/Day Years Used Date Smoking Tobacco: Never Smokeless Tobacco: Never Alcohol Use Standard Drinks/Week Comments No 0 (1 standard drink = 0.6 oz pur e alcohol) [facility] Utilities Answer Date Recorded In the [...] any time in the past 12 m [facility], were you homeless or living in a half-way (including now)? No 07/01/2024 Area Deprivation Index Answer Date Erik rded National Score (1-100), lower number is lower ri sk 93 03/15/2024 State Score (1-10), lower number is lower risk 9 03/15/2024 Data from: https://www.neighborhoodatlas.medicine.[facility].edu/. Last address used for calculation [address] [...] on filedocumented in this encounter Care Teams Urban Planning Teacher Relationship Specialty Start Date End Date Essie Ryan CNP PCP - General Family Medicine 07/22/16 Adán Torres DO Obstetrics 07/22/16 Alexis Saenz II, MD [address] [place] [address] Referring Orthopedics 12/13/21 Angel Delgado DO [address] [place] [address] Referring Orthopedics 03/08/24 documented as of this encounter
--- OUTSIDE RECORDS SUMMARY | 2024-11-25 13:30 | XMS_ITS | Encounter Summary ---
Author Organization [facility] Address [address] [place], [place] [address] Care Team Providers Care Ar Manager Name Role Phone CharliEssie ha Fely BAH Primary Care Provider Adán Torres DO Unavailable [phone] Dany ARDON MD, [facility] Unavailable + Angel Delgado DO Unavailable [phone] Source Comments In the event this information is protected by the Federal Confidentiality of Alcohol and Drug AbusePatient Records regulations: The Federal rules restrict any use of the information to criminally investigate or prosecute any alcohol or drug abuse patient.[facility] Reason for Visit * Reason Comments new order Encounter Details Date Type Department Care Team (Late st Contact Info) Description 06/24/2024 Telephone Internal Medicine [facility] [address] [place] [address] Yanni pSring MD [address] [place] [id number] new order Social History Tobacco Use Types Packs/Day Years [...] is lower risk 9 03/15/2024 Data from: https://www.neighborhoodatlas.medicine.[facility]/. Last address used for calculation [...] Burrell i, RN documented in this encounter Miscellaneous Notes * Telephone Encounter - Lillian Argueta - 06/24/2024 10:13 AM EST [facility] need a new order for the raised toilet, bath seat, wheeled walker, toilet seat rail the order is from 04-16 medicaid requires the order to be no older than 1 month old if faxed it needs a wet signature and mobilty dx code. Fax- [phone] documented in this encounter Plan of Treatment Not on file documented as of this encounter Visit Diagnoses Not on filedocumented in this encounter Care Teams Ar Manager Relationship Specialty Start Date End Date Essie Ryan, SHOP MECHANIC HELPER PCP - General Family Medicine 07/22/16 Adán Torres DO Obstetrics 07/22/16 Alexis Saenz II, MD [address] [place] [address] Referring Orthopedics 12/13/21 [place] [address] [place] [address] Referring Orthopedics 03/08/24 documented as of this encounter
--- OUTSIDE RECORDS SUMMARY | 2024-11-25 13:30 | XMS_ITS | Encounter Summary ---
Author Organization [facility] Address [address] [place], [place] [address] Care Team Providers Care Automotive Leasing Sales Representative Name Role Phone CharliEssie ha Fley BAH Primary Care Provider Adán Torres DO Unavailable [phone] Dany ARDON MD, [facility] Unavailable + Angel Delgado DO Unavailable [phone] Source Comments In the event this information is protected by the Federal Confidentiality of Alcohol and Drug AbusePatient Records regulations: The Federal rules restrict any use of the information to criminally investigate or prosecute any alcohol or drug abuse patient.[facility] Encounter Details Date Type Department Care Team (Late st Contact Info) Description 08/20/2024 Get Medical Advice Orthopaedics [address] [place], [place] [phone] Yanni Spring MD [address] [place] [address] Insurance Social History Tobacco Use Types Packs/Day Years Used Date Smoking Tobacco: Never Smokeless Tobacco: Never Alcohol Use Standard Drinks/Week Comments No 0 (1 standard drink = 0.6 oz pur e alcohol) [facility] Utilities Answer Date Recorded In the past [...] any time in the past 12 [facility], were you homeless or living in a half-way (including now)? No 07/01/2024 Area Deprivation Index Answer Date Erik rded National Score (1-100), lower number is lower ri sk 93 03/15/2024 State Score (1-10), lower number is lower risk 9 03/15/2024 Data from: https://www.neighborhoodatlas.medicine.[facility].edu/. Last address used for calculation [address] [...] on filedocumented in this encounter Care Teams Automotive Leasing Sales Representative Relationship Specialty Start Date End Date Essie Ryan CNP PCP - General Family Medicine 07/22/16 Adán Torres DO Obstetrics 07/22/16 Alexis Saenz II, MD [address] [place] [address] Referring Orthopedics 12/13/21 Angel Delgado DO [address] [place] [address] Referring Orthopedics 03/08/24 documented as of this encounter
--- OUTSIDE RECORDS SUMMARY | 2024-11-25 13:30 | XMS_ITS | Clinical Summary ---
Author Organization [facility] Address [address] [place] [address] Care Team Providers Care Food Processing Scientist Name Role Phone Essie Ryan SERVICE CENTER ASSISTANT Unavailable [phone] Essie Ryan NP Unavailable [phone] Yuriy Martins MD Primary Care Provider [phone] Allergies Active Allergy Reactions Criticality Noted Date Comments Penicillins Other,Unknown Medium 06/13/2014 As a child Medications ARIPiprazole (Abilify) 15 MG tabletIndications:B ipolar disorder, unspecified (CMS/HCC) Take 1 tablet (15 mg) by mouth Daily 30 tablet 3 5 Active atorvastatin (Lipitor) 80 MG tabletIndications:M ixed hyperlipidemia (CMS/HCC) Take 1 tablet (80 mg) by mouth in the evening 30 tablet 3 5 Active busPIRone (Buspar) 15 MG tabletIndications:A nxiety Take 0.5 tablets (7.5 mg) by mouth in the morning and 0.5 tablets (7.5 mg) before bedtime. 60 tablet 3 5 Active omeprazole (PriLOSEC) [address] capsuleIndications: Gastroesophageal reflux disease, unspecified whether esophagitis present Take 1 capsule (40 mg) by mouth in the morning. Take before meals. 30 capsule 5 5 Active meloxicam (Mobic) 15 MG tabletIndications:O steoarthritis Take 1 tablet (15 mg) by mouth Daily 30 tablet 3 5 10/31/19 25 Active Problems Problem Noted Date Diagnosed Date Left hip pain 09/30/2024 Bipolar disorder, unspecified 08/28/2024 Assessment & Plan (09/30/2024 1:46 PM EDT): Continue buspar and aripiprazole Assessment & Plan (08/28/2024 1:53 PM EST): Used to see psych, does not want to continue with them Current meds: raysa gant PHQ 9=9 FLOR 7=6 Dizziness and giddiness 08/28/2024 Assessment & Plan (09/30/2024 1:44 PM EDT): Last appt was having sxs, ordered labs No acute findings on exam or labs At this point, I would recommend she discuss with Inspire device doctor S/P total right hip arthroplasty 07/01/2024 Assessment & Plan (08/28/2024 1:51 PM EST): 06/24/24 Normal post op discomfort Did at home PT Bipolar 1 disorder 05/29/2024 Assessment & Plan (05/29/2024 7:36 AM EST): Is currently taking ability Does not want to see psych Needs flu shot 04/10/2024 Assessment & Plan (04/10/2024 8:59 AM EDT): Pt declined Neuritis of left median nerve 02/29/2024 Assessment & Plan (04/10/2024 8:55 AM EDT): resolved Assessment & Plan (02/29/2024 9:12 AM EDT): Cont nsaid Trial cock up splint Recheck in 6 weeks Neuritis of right median nerve 02/29/2024 Assessment & Plan (04/10/2024 8:55 AM EDT): resolved Assessment & Plan (02/29/2024 9:12 AM EDT): Continue NSAID, get a cock up splint Fu in 6 weeks Morbid (severe) obesity due to excess calories 0 01/30/2024 Assessment & Plan (09/30/2024 7:07 AM EDT): Discussed with patient their BMI (actual, verses recommended). We have also discussed lifestyle modifications: attempts to perform physical activity as chronic conditions allow, also to monitor dietary intake: increasing protein/fruits/veggies and lowering carb intake (unless contraindicated). Limit sodas, juices, and sugary drinks.. Assessment & Plan (08/28/2024 7:08 AM EST): Discussed with patient their BMI (actual, verses recommended). We have also discussed lifestyle modifications: attempts to perform physical activity as chronic conditions allow, also to monitor dietary intake: increasing protein/fruits/veggies and lowering carb intake (unless contraindicated). Limit sodas, juices, and sugary drinks.. Assessment & Plan (05/29/2024 3:10 PM EST): Discussed with patient their BMI (actual, verses recommended). We have also discussed lifestyle modifications: attempts to perform physical activity as chronic conditions allow, also to monitor dietary intake: increasing protein/fruits/veggies and lowering carb intake (unless contraindicated). Limit sodas, juices, and sugary drinks.. Contracture, left ankle 01/30/2024 Left foot pain 11/08/2023 Assessment & Plan (11/08/2023 4:07 PM EDT): Left foot Pain, ongoing for 4 weeks. Persistent, worse towards the end of the day. No injury, no overlying skin changes. Tenderness along calcaneal bone. No improvement with prednisone, Mobic. Will get XR, and refer to Podiatry. Pain of left heel 10/25/2023 Assessment & Plan (10/25/2023 10:04 AM EDT): Left Heel pain x 2 weeks, persistent, [...] refer to Podiatry. No need for XR. Body mass index (BMI) 38.0-38.9, adult Herpes zoster without complication 09/28/2023 Assessment & Plan (09/28/2023 5:56 PM EDT): Off work, may RTW 10/04/23 Add antivirals and steroids If ANY eye symptoms occur go to ER She denies facial NT , she is able to smell and taste, she also does not have any acute pain Advised to stay away from those who are immune suppressed, and not vaccinated for varicella (has grandchildren) Hyperlipidemia 09/11/2023 Assessment & Plan (09/30/2024 7:08 AM EDT): On statin therapy Check labs yearly and prn dose changes Sensorineural hearing loss (SNHL), bilateral Kidney stones 08/29/2023 Chronic right hip pain 08/21/2023 Assessment & Plan (09/30/2024 1:45 PM EDT): Restarted meloxicam, still with thigh pain, recommend talking w ortho Assessment & Plan (05/29/2024 7:35 AM EST): Has been with ortho Plan for hip replacement after first of the year Assessment & Plan (01/30/2024 3:58 PM EDT): Seeing ortho, considering a hip replacement Anxiety 07/25/2023 Assessment & Plan (09/30/2024 1:46 PM EDT): Continue current meds: abilify, buspirone Assessment & Plan (08/28/2024 1:53 PM EST): Buspar FLOR 7=6 Assessment & Plan (05/29/2024 3:10 PM EST): Does not want to see psych Meds are controlling symptoms Current meds: buspar prn and abilify Assessment & Plan (04/10/2024 8:56 AM EDT): Prn buspar Breast cancer screening 07/13/2023 Fluid level behind tympanic membrane of right ea r 07/13/2023 Assessment & Plan (07/13/2023 9:54 AM EST): Persistent over 6-8 weeks, will refer to ENT Timmis Chronic rhinitis 2023 Assessment & Plan (07/04/2023 3:50 PM EST): Is not compliant with nasal steroid Needs to use this Lumbar radiculopathy 05/03/2023 Arthritis of right hip 01/14/2023 Multiple thyroid nodules 01/14/2023 Sensorineural hearing loss, bilateral 01/14/2023 Thyromegaly 01/14/2023 Gastro-esophageal reflux disease without esophag itis 11/08/2022 Assessment & Plan (08/28/2024 7:07 AM EST): Recommendations: freq small meals, nothing to eat or drink at least 2 hours prior to bed, limit caffeine, alcohol, as well as spicy foods Meds to limit or avoid if possible: NSAIDS Elevate HOB if possible Current med: omeprazole Assessment & Plan (01/30/2024 7:29 AM EDT): monitor PAH (pulmonary artery hypertension) 11/08/2022 Assessment & Plan (08/28/2024 7:06 AM EST): Saw cardiology in the past, was on letaris, no longer taking it or fu with cardiology Non compliant with PAP, looking into inspire No chest pain/pressure/dyspnea Assessment & Plan (05/29/2024 7:35 AM EST): Saw cardiology in the past, was on letaris, no longer taking it or fu with cardiology Non compliant with PAP, looking into inspire No chest pain/pressure/dyspnea Assessment & Plan (04/10/2024 8:56 AM EDT): Saw cardiology in the past, was on letaris, no longer taking it or fu with cardiology Non compliant with PAP, looking into inspire No chest pain/pressure/dyspnea COVID-19 01/24/2022 NIRMALA (obstructive sleep apnea) 11/25/2016 Assessment & Plan (09/30/2024 1:45 PM EDT): Had Inspire device placement in 08/20 Activated on 09/27/24 Assessment & Plan (08/28/2024 1:43 PM EST): Does not tolerate PAP use Had inspire placement recenlty Assessment & Plan (05/29/2024 7:34 AM EST): Does not tolerate PAP use Is pursing surgical intervention for device insertion Continue with specialist for this Pleurisy 04/05/2013 Dyspnea 04/20/2012 Crohn's disease of both smal l and large intestine without complications 09/21/2011 Assessment & Plan (08/28/2024 7:07 AM EST): Continue to follow with GI Assessment & Plan (01/30/2024 7:28 AM EDT): Continue to monitor GI Resolved Problems Problem Noted Date Diagnosed Date Resolved Date Pulmonary hypertension, unspecified 08/28/2024 08/28/2024 Achilles tendinosis of left ankle 10/25/2023 10/25/2023 Pulmonary hypertension, unspecified 09/28/2023 04/10/2024 Assessment & Plan (01/30/2024 7:28 AM EDT): No longer takes meds or follows with cardiology Herpes zoster with complication 09/28/2023 09/28/2023 Other chronic sinusitis 07/13/2023 08/0 11/2023 Assessment & Plan (07/13/2023 9:53 AM EST): Check CT scan of sinuses BMI 38.0-38.9,adult 07/04/2023 04/10/20 24 Non-suppurative otitis media 07/04/2023 07/04/2023 Otitis media, acute 07/04/2023 01/30/20 Assessment & Plan (07/04/2023 3:50 PM EST): PCN allergy is fever as a child Will trial cefdinir BID for 10 days, and add steroid Fu in 3 weeks if not better consider ENT URI, acute 06/15/2023 01/30/2024 Other acute sinusitis 06/07/20232023 Assessment & Plan (07/04/2023 3:51 PM EST): I suspect most of her sxs come from allergic rhinitis not treated with her nasal steroid, which causing inflammed sinuses Will add steroid, encouraged nasal steroid fu in 3 weeks, consider CT sinus as well Assessment & Plan (06/07/2023 8:42 AM EST): Will send in atb, if not better will need fu appt Thyroid nodule 01/18/2023 01/30/2024 Nocturia 01/14/2023 01/14/2023 Other chronic pain 01/14/2023 Pelvic pain 01/14/2023 01/14/2023 Gross hematuria 11/08/2022 01/14/2023 Obese 11/08/2022 01/14/2023 Flank pain 11/08/2022 01/14/2023 Enterolith of small intestine 12/14/2020 08/28/2024 Other hyperlipidemia 12/14/2020 023 Bipolar disorder, unspecified 12/14/2020 05/29/2024 Assessment & Plan (04/10/2024 8:56 AM EDT): Will increase abilify to 15mg Fu in 6 weeks Assessment & Plan (02/29/2024 9:11 AM EDT): Cont w abilify at 10mg pt does not want adjustment May take buspar prn if too sedating No call from psych, we will reach out to them Fu in office with me in 6 weeks Sooner if needed Assessment & Plan (01/30/2024 3:56 PM EDT): Will restart her on abilify and refer to psych If worsening sxs go to ER for mental health She is agreeable to see Mariam Bipolar disorder, curr episo de mixed, severe, with psychotic features 08/19/2017 04/10/2024 Crohn's disease of intestine 07/27/2016 08/28/2024 Overview (09/28/2023): Last Assessment & Plan: ASSESSMENT: -this is [...] with [facility] staff Dr. Yong Rodriguez Disorder of lung 04/05/2013 08/28/2024 Chest pain 02/09/2012 01/14/2023 Encounters Date Type Department Care Team Description 11/01/2024 Clinisync Result Encounter [facility] Unsolicited Provider, Generic External Data 10/09/2024 Clinisync Result Encounter [facility] External Department Unsolicited Essie Ryan NP 10/09/2024 Clinisync Result Encounter [facility] External Department Unsolicited Provider, Generic External Data 10/04/2024 Clinisync Result Encounter [facility] External Department Unsolicited Essie Ryan NP 09/30/2024 1:20 PM EDT Office Visit [facility] [address] [place] [address] Essie Ryan NP Dizziness and giddiness (Primary Dx); NIRMALA (obstructive sleep apnea); Morbid (severe) obesity due to excess calories (CMS/HCC); Bipolar disorder, unspecified (CMS/HCC); Mixed hyperlipidemia (CMS/HCC); Anxiety; Chronic right hip pain; Gastroesophageal reflux disease, unspecified whether esophagitis present; Left hip pain 09/30/2024 Bamboo flowsheet [facility] [address] [place] [address] Essie Ryan NP 09/23/2024 Travel 09/17/2024 Refill [facility] [address] [place] [address] Essie Ryan NP Chronic right hip pain (Primary Dx) 09/17/2024 Telephone [facility] [address] [place] [address] Essie Ryan NP 09/16/2024 Telephone [facility] [address] [place] [address] Essie Ryan NP 09/09/2024 Clinisync Result Encounter [facility] External Department Unsolicited Provider, Generic External Data 09/09/2024 Clinisync Result Encounter [facility] External Department Unsolicited Provider, Generic External Data 08/29/2024 Clinisync Result Encounter [facility] External Department Unsolicited Essie Ryan NP 08/28/2024 1:20 PM EST Office Visit [facility] [address] [place] [address] Essie Ryan NP Anxiety (Primary Dx); Morbid (severe) obesity due to excess calories (CMS/HCC); Mixed hyperlipidemia (CMS/HCC) ; Body mass index (BMI) 38.0-38.9, adult; Bipolar disorder, unspecified (CMS/HCC) ; Pulmonary hypertension, unspecified (CMS/HCC); Crohn's disease of both small and large intestine without complications (CMS/HCC); NIRMALA (obstructive sleep apnea); PAH (pulmonary artery hypertension) (CMS/[facility]); Gastro-esophageal reflux disease without esophagitis; S/P total right hip arthroplasty; Encounter for screening mammogram for malignant neoplasm of breast; Gastroesophageal reflux disease, unspecified whether esophagitis present; Dizziness and giddiness 08/28/2024 BamHighlightero flowsheet [facility] [address] [place] [id number] Essie Ryan NP 08/28/2024 Travel from Last 3 Months Immunizations Immunization Administration Dates Next Due Influenza Whole 05/03/2012 Family History Medical History Relation Name Comments Cancer Father Lazaro Diabetes Father Lazaro Heart disease Father Lazaro Hypertension Father Lazaro Cancer Mother Joselin Relation Name Status Comments Father Lazaro Mother Joselin Alive Social History Tobacco Use Types Packs/Day Years Used Date Smoking Tobacco: Never Passive Smoke Exposure: Never Smokeless Tobacco: Never Tobacco Cessation:Counseling Given: No Alcohol Use Standard Drinks/Week Comments Never 0 (1 standard drink = 0.6 oz pure alcohol) caffeine intake: 1-2 cups per day [id number] Health Literacy Answer Date Recor ded How often do you need to hav e someone help you when you read instructions, pamphlets, or other written material from your doctor or pharmacy? Never 08/28/2024 Humiliation, Afraid, Rape, and Kick questionnair e [...] the phone with family, friends, or neighbors? Once a week 08/28/2024 How often do you get together with friends or re latives? Once a week 08/28/2024 How often do you attend nondenominational or protestant serv ices? Never 08/28/2024 Do you belong to any clubs o r organizations such as nondenominational groups, unions, fraternal or athletic groups, or school groups? No 08/28/2024 How often do you attend meet ings of the clubs or organizations you belong to? Never 08/28/2024 Are you , , di vorced, , never , or living with a partner? 08/28/2024 AUDIT-C Answer Date Recorded Q1: How often do you have a drink containing alcohol? Never 08/28/2024 Q2: How many drinks containi ng alcohol do you have on a typical day when you are drinking? Patient does not drink Q3: How often do you have si x or more drinks on one occasion? Never 08/28/2024 Overall Financial Resource Strain (CARDIA) Answe r Date Recorded How hard is it for you to pa y for the very basics like food, housing, medical care, and heating? Not very hard 08/28/2024 PHQ-2 Answer Date Recorded Patient Health Questionnaire-2 Score 0 11/08/2023 [facility] - Occupational Stress Questionnaire Answer Date Recorded Do you feel stress - tense, restless, nervous, or anxious, or unable to sleep at night because your mind is troubled all the time - these days? Only a little 08/28/2024 Exercise Vital Sign Answer Date Recorde d On average, how many days pe r week do you engage in moderate to strenuous exercise (like a brisk walk)? 0 days 08/28/2024 On average, how many minutes do you engage in exercise at this level? 0 min 08/28/2024 Hunger Vital Sign Answer Date Recorded Within the past 12 months, y ou worried that your food would run out before you got the money to buy more. Never true 08/29/19 25 Within the past 12 months, t he food you bought just didn't last and you didn't have money to get more. Never true 08/28/2024 PRAPARE - Transportation Answer Date Re corded In the past 12 months, has l ack of transportation kept you from medical appointments or from getting medications? No 10/2024 In the past 12 months, has l ack of transportation kept you from meetings, work, or from getting things needed for daily living? No 08/28/2024 Housing Stability Vital Sign Answer Williams e [...] a senior living (including now)? No 06/14/2023 Housing Stability Vital Sign Answer Williams e Recorded In the last 12 months, was t here a time when you were not able to pay the mortgage or rent on time? No 08/28/2024 In the past 12 months, how m any times have you moved where you were living? 0 08/28/2024 At any time in the past 12 m [facility], were you homeless or living in a senior living (including now)? No 08/28/2024 Comments Unknown Sex and Gender Information Value Date Recorded Sex Assigned at Not on file Legal Sex Female 7:01 PM EDT Gender Identity Not on file Sexual Orientation Not on file Last Filed Vital Signs Vital Sign Reading Time Taken Comments Blood Pressure 118/90 09/30/2024 1:39 PM EDT Pulse 99 09/30/2024 1:39 PM EDT Temperature 37 C (98.6 F) 09/30/2024 1:39 PM EDT Respiratory Rate 18 09/30/2024 1:39 PM EDT Oxygen Saturation 98% 09/30/2024 1:39 PM EDT Inhaled Oxygen Concentration - - Weight 88 kg (194 lb) 09/30/2024 1:39 PM EDT Height 152.4 cm (5') 05/29/2024 2:40 PM EST Body Mass Index 37.89 05/29/2024 2:40 PM EST Plan of Treatment Upcoming Encounters Date Type Department Care Team (Late st Contact Info) Description 01/01/2025 1:00 PM EDT Office Visit [facility] [address] [place] [address] Essie Ryan NP [address] [place] [address] Health Maintenance Due Date Last Done Comments Pap Smear 1997 HPV/Cotest 2006 Mammogram 10/04/2025 10/04/2024, 07/28, 08/04/2022, Additional history exists Influenza Vaccine Discontinued 05/03/2012 Colonoscopy Discontinued 12/15/2020 Colorectal Cancer Screening Discontinued CT Colonography Discontinued Cervical Cancer Screening Discontinued FIT-DNA Discontinued FIT Discontinued FOBT Discontinued Sigmoidoscopy Discontinued Procedures Procedure Name Priority Date/Time Associated Diagnosis Comments CA ECHO DOPPLER COMPLETE 11/01/2024 5:58 PM EDT XR HIP LT MIN 2V 10/09/2024 3:19 PM EDT [facility] APTT Routine 10/09/2024 2:08 PM EDT SRMCOH PROTHROMBIN TIME INR W/O COUM Routine 10/09/2024 2:08 PM EDT ALL BASIC METABOLIC PANEL Routine 10/09/2024 2:08 PM EDT ALL CBC WITH AUTO DIFF Routine 2:08 PM EDT MM TOMOSYNTHESIS SCREENING BI 10/04/2024 12:29 PM EDT XR ABDOMEN 1V 09/09/2024 12:29 PM EDT US RENAL BI 09/09/2024 11:28 AM EDT TRANSFERRIN Routine 08/29/2024 7:31 AM EST [facility] FERRITIN Routine 08/29/2024 7:31 AM EST ALL LIPID PROFILE (FASTING) Routine 08/29/2024 7:31 AM EST [facility] CMP (CMP) (FOR REMOTE [facility] USE) Routine 08/29/2024 7:31 AM EST METRO IRON AND TIBC Routine 08/29/2024 7 :31 AM EST ALL CBC WITH AUTO DIFF Routine 7:31 AM EST from Last 3 Months Results * CA ECHO DOPPLER COMPLETE (11/01/2024 5:58 PM EDT) Anatomical Region Laterality Modality Other 11/01/2024 5:58 PM EDT Narrative 11/01/2024 5:59 [place] [address] Cardiology Report Signed Patient: STACEY FIGUEROA MR#: [id number] : 1975 Acct:[id number] Age/Sex: 49 / F ADM Date: 11/01/24 Loc: CARD Attending Dr: CAN VALERA APRN Ordering Physician: CAN VALERA APRN Date of Service: 11/01/24 Procedure(s): CA echo doppler complete Accession Number(s): [id number] cc: Essie Ryan SERVICE CENTER ASSISTANT; CAN VALERA APRN Patient Name: STACEY FIGUEROA MR#: [id number] : 1975 Exam Date: 11/01/2024 Ordering Doctor: CAN VALERA GREEN BUILDING ENGINEER ECHOCARDIOGRAM REPORT PROCEDURE: CA ECHO DOPPLER COMPLETE INDICATIONS: Dyspnea on exertion, palpitations, sleep apnea - inspire implant COMPARISON: None. DESCRIPTION: COMPLETE ECHOCARDIOGRAM Real-time transthoracic echocardiography with 2D, M-mode, spectral and color flow Doppler performed. QUALITY: Technical quality was good. LEFT VENTRICLE: Normal chamber size. Normal left ventricular wall thickness. Normal left ventricular systolic function without wall motion abnormalities, calculated left ventricular ejection fraction is 53%. LV EF: DIASTOLIC: Normal diastolic function ATRIAL SEPTUM: Visually appears intact. LEFT ATRIUM: Normal chamber size. RIGHT ATRIUM: Normal chamber size. RIGHT VENTRICLE: Normal chamber size. Normal right ventricular systolic function. TRICUSPID VALVE: Normal mobility and thickness. No stenosis with trivial regurgitation. No evidence of pulmonary hypertension.RVSP 24 mmHg MITRAL VALVE: Normal mobility and thickness. [...] PERICARDIUM: No evidence of pericardial effusion. IVC: Collapes with inspirations. IVC is normal in size. PLEURA: CONCLUSION: Normal left ventricle size, wall thickness, and systolic function without wall motion abnormalities, ejection fraction 53% Normal left ventricular diastolic function Normal right ventricle size and systolic function Normal right-sided pressures No significant valvular abnormalities Adult Echocardiography Procedure Report Left Ventricle LVEDD (3.7 - 5.6 cm): 4.81 cm LVESD (2.2 - 4.0 cm): 3.23 cm LVIVS thickness (0.6 - 1.2 cm): 0.80 cm LVPW thickness (0.5 - 1.0 cm): 0.90 cm e': 0.13 m/s E - e': 6.04 LVOT Max Gradient: 3.70 mm[Hg] LVOT Area (cm2): 0.96 m/s Peak Velocity (LVOT): 0.96 m/s Mean Velocity (LVOT): 0.67 m/s LVOT Diameter 2.02 cm Left Atrium LA Volume Index (2D A2C): 23.10 ml/m2 Left Atrium Systolic Dimension: 4.13 cm Mitral Valve MV E to A Ratio: 1.11 Mitral Valve A-Wave Peak Velocity: 0.73 m/s Mitral Valve E-Wave Peak Velocity: 0.81 m/s Right Ventricle Aorta AO Root Diam: 2.73 cm Aortic Valve AoV Area (Peak Luis): 2.26 cm2, 2.26 cm2 AoV Area (VTI): 2.20 cm2, 2.20 cm2 Peak Velocity(Antegrade Flow): 1.37 m/s Peak Gradient(Antegrade Flow): 7.46 mm[Hg] Mean Velocity(Antegrade Flow): 0.94 m/s Mean Gradient(Antegrade Flow): 4.05 mm[Hg] Velocity Time Integral: 29.85 cm Tricuspid Valve Peak Velocity (Regurgitant Flow): 1.97 m/s, 2.28 m/s Pulmonic Valve Mean Gradient: 1.74 mm[Hg] Mean Velocity: 0.62 m/s Peak Velocity: 0.98 m/s, 0.79 m/s Peak Gradient: 2.49 mm[Hg], 3.81 mm[Hg] Right Atrium Right Atrium Systolic Pressure: 20.63 ml, 20.63 ml Dictated by: Guanaco Draper MD on 11/01/2024 at 17:51 Approved by: Guanaco Draper MD on 11/01/2024 at 17:58 Dictated By: Guanaco Draper M.D. Signed By: 11/01/241758 DD/ 57 TD/TT: Block Splitter Operator: Procedure Note Radiology, Radiologist, MD - 11/01/2024 [place] [address] Cardiology Report Signed Patient: STACEY FIGUEROA AMR#: [id number] : 1975Acct:[id number] Age/Sex: 49 / FADM Date: 11/01/24 Loc: CARD Attending Dr: CAN VALERA APRN Ordering Physician: CAN VALERA APRN Date of Service: 11/01/24 Procedure(s): CA echo doppler complete Accession Number(s): [id number] cc: Essie Ryan SERVICE CENTER ASSISTANT; CAN VALERA APRN Patient Name: STACEY FIGUEROA MR#: [id number] : 1975 Exam Date: 11/01/2024 Ordering Doctor: CAN VALERA [facility] ECHOCARDIOGRAM REPORT PROCEDURE: CA ECHO DOPPLER COMPLETE INDICATIONS: Dyspnea on exertion, palpitations, sleep apnea - inspire implant COMPARISON: None. DESCRIPTION: COMPLETE ECHOCARDIOGRAM Real-time transthoracic echocardiography with 2D, M-mode, spectral and color flow Dopplerperformed. QUALITY: Technical quality was good. LEFT VENTRICLE: Normal chamber size. Normal left ventricular wall thickness. Normal left ventricular systolic function without wall motion abnormalities, calculated left ventricular ejection fraction is 53%. LV EF: DIASTOLIC: Normal diastolic function ATRIAL SEPTUM: Visually appears intact. LEFT ATRIUM: Normal chamber size. RIGHT ATRIUM: Normal chamber size. RIGHT VENTRICLE: Normal chamber size. Normal right ventricularsystolic function. TRICUSPID VALVE: Normal mobility and thickness. No stenosis withtrivial regurgitation. No evidence of pulmonary hypertension.RVSP 24 mmHg MITRAL VALVE: Normal mobility and thickness. No evidence of mitralvalve stenosis. There is no mitral annular calcification. Trivial mitral regurgitation. AORTIC VALVE: Normal trileaflet appearance. No visible sclerosis.Normal leaflet mobility. No evidence of aortic valve stenosis. No aortic regurgitation. AORTIC ROOT: Normal diameter and appearance. PULMONIC VALVE: Normal thickness and mobility. No stenosis. Mild regurgitation. PERICARDIUM: No evidence of pericardial effusion. IVC: Collapes with inspirations. IVC is normal in size. PLEURA: CONCLUSION: Normal left ventricle size, wall thickness, and systolic function withoutwall motion abnormalities, ejection fraction 53% Normal left ventricular diastolic function Normal right ventricle size and systolic function Normal right-sided pressures No significant valvular abnormalities Adult Echocardiography Procedure Report Left Ventricle LVEDD (3.7 - 5.6 cm): 4.81 cm LVESD (2.2 - 4.0 cm): 3.23 cm LVIVS thickness (0.6 - 1.2 cm): 0.80 cm LVPW thickness (0.5 - 1.0 cm): 0.90 cm e': 0.13 m/s E - e': 6.04 LVOT Max Gradient: 3.70 mm[Hg] LVOT Area (cm2): 0.96 m/s Peak Velocity (LVOT): 0.96 m/s Mean Velocity (LVOT): 0.67 m/s LVOT Diameter 2.02 cm Left Atrium LA Volume Index (2D A2C): 23.10 ml/m2 Left Atrium Systolic Dimension: 4.13 cm Mitral Valve MV E to A Ratio: 1.11 Mitral Valve A-Wave Peak Velocity: 0.73 m/s Mitral Valve E-Wave Peak Velocity: 0.81 m/s Right Ventricle Aorta AO Root Diam: 2.73 cm Aortic Valve AoV Area (Peak Luis): 2.26 cm2, 2.26 cm2 AoV Area (VTI): 2.20 cm2, 2.20 cm2 Peak Velocity(Antegrade Flow): 1.37 m/s Peak Gradient(Antegrade Flow): 7.46 mm[Hg] Mean Velocity(Antegrade Flow): 0.94 m/s Mean Gradient(Antegrade Flow): 4.05 mm[Hg] Velocity Time Integral: 29.85 cm Tricuspid Valve Peak Velocity (Regurgitant Flow): 1.97 m/s, 2.28 m/s Pulmonic Valve Mean Gradient: 1.74 mm[Hg] Mean Velocity: 0.62 m/s Peak Velocity: 0.98 m/s, 0.79 m/s Peak Gradient: 2.49 mm[Hg], 3.81 mm[Hg] Right Atrium Right Atrium Systolic Pressure: 20.63 ml, 20.63 ml Dictated by: Guanaco Draper MD on 11/01/2024 at 17:51 Approved by: Guanaco Draper MD on 11/01/2024 at 17:58 Dictated By: Guanaco Draper M.D. Signed By:11/01/241758 DD/ 57 TD/TT: Block Splitter Operator: us Generic External Data Provider [facility] IMAGING Final Result * XR HIP LT MIN 2V (10/09/2024 3:19 PM EDT) Anatomical Region Laterality Modality Other 10/09/2024 3:19 PM EDT Narrative 10/09/2024 3:22 PM EDT The [address] [address] XRay Report Signed Patient: STACEY FIGUEROA MR#: [id number] : 1975 Acct:[id number] Age/Sex: 49 / F ADM Date: 10/09/24 Loc: RAD Attending Dr: Essie Ryan NP Ordering Physician: Essie Ryan NP Date of Service: 10/09/24 Procedure(s): XR hip LT min 2V Accession Number(s): [id number] cc: Essie Ryan NP [address] [address] Patient Name: STACEY FIGUEROA MRN: [id number]:[id number] date: 1975 Sex: F Assigned Patient Location: RAD Current Patient Location: RAD Accession/Order Number: [id number] Exam Date: 10/09/2024 15:18 Report Date: 10/09/2024 15:19 At the request of: ESSIE RYAN NP Procedure: XR hip LT min 2V LEFT HIP - 2 views: CLINICAL HISTORY: Left Hip Pain COMPARISON: None FINDINGS: Mild degenerative changes of the left hip without acute bony process. XR/XR hip LT min 2V IMPRESSION: MILD DEGENERATIVE CHANGES OF THE LEFT HIP WITHOUT ACUTE BONY PROCESS.. Impression dictated by: Robby Lowe Jr., D.O.10/09/2024 3:19 PM Dictation Location: [place] [address] Electronically authenticated by: [id number] Y Date: 10/09/2024 15:19 Dictated By: Robby Lowe M.D. Signed By: 10/09/24 1522 DD/ 1519 TD/TT: Block Splitter Operator: Procedure Note Radiology, Radiologist, MD - 10/09/2024 [place] [address] XRay Report Signed Patient: STACEY FIGUEROA AMR#: [id number] : 1975Acct:[id number] Age/Sex: 49 / FADM Date: 10/09/24 Loc: RAD Attending Dr: Essie Ryan NP Ordering Physician: Essie Ryan NP Date of Service: 10/09/24 Procedure(s): XR hip LT min 2V Accession Number(s): [id number] cc: Essie Ryan NP [place] [id number] Patient Name: STACEY FIGUEROA MRN: [id number] date: 1975 Sex: F Assigned [facility] Location: [facility] Current Patient Location: [facility] Accession/Order Number: [id number] Exam Date: 10/09/2024 15:18 Report Date: 10/09/2024 15:19 At the request of: ESSIE RYAN NP Procedure: XR hip LT min 2V LEFT HIP - 2 views: CLINICAL HISTORY: Left Hip Pain COMPARISON: None FINDINGS: Mild degenerative changes of the left hip without acute bony process. XR/XR hip LT min 2V IMPRESSION: MILD DEGENERATIVE CHANGES OF THE LEFT HIP WITHOUT ACUTE BONY PROCESS.. Impression dictated by: Robby Lowe Jr., D.O.10/09/2024 3:19 PM Dictation Location: [place] [address] Electronically authenticated by: [id number] Y Date: :19 Dictated By: Robby Lowe M.D. Signed By:10/09/24 1522 DD/ 1519 TD/TT: Block Splitter Operator: Essie Ryan SERVICE CENTER ASSISTANT [facility] IMAG[facility] Final Result * [facility] PROTHROMBIN TIME INR W/O COUM (10/09/2024 2:08 PM EDT) PROTHROMBIN TIME 10.3 9.0 - 11.6 sec TBH TBH INR 0.97 TBH Comment: DESIRED INR: 2.0-3.0 CONDITIONS NOT LISTED BELOW 2.5-3.5 FOR PROSTHETIC HEART VALVE REPLACEMENT 2.5-3.5 RECURRENT THROMBOSIS 10/09/2024 2:08 PM EDT 10/09/2024 2:08 PM EDT Narrative CLINISYNC - 10/09/2024 2:31 PM EDT Generic External Data Provider CLIN[facility]NC F inal Result Performing Organization Address [facility] Co de Phone Number [facility] * [facility] APTT (10/09/2024 2:08 PM EDT) Pathologist [facility] PARTIAL THROMBOPLASTIN TIME 24.2 22.3 - 36.2 sec TB 10/09/2024 2:08 PM EDT 10/09/2024 2:08 PM EDT Narrative CLINISYNC - 10/09/2024 2:31 PM EDT Generic External Data Provider CLIN[facility]YNC F inal Result Performing Organization Address [facility] Co de Phone Number [facility] * ALL CBC WITH AUTO DIFF (10/09/2024 2:08 PM EDT) Only the most recent of2 resultswithin the time period is included. [facility] WBC 8.1 4.0 - 11.0 10 3/uL TBH TBH RBC 4.44 4.20 - 5.40 10 6/uL TBH TBH HGB 12.6 12.0 - 16.0 g/dL TBH TB HCT 38.5 36.0 - 48.0 % TBH TBH MCV 86.7 81.0 - 99.0 fL TBH TBH MCH 28.4 26.7 - 34.0 pg TBH TBH MCHC 32.7 29.9 - 35.2 g/dL TBH TBH RDW 13.1 11.0 - 15.0 % TBH TBH PLT 270 150 - 450 10 3/uL TBH TBH MPV 10.6 9.5 - 13.5 fL TBH NEUTROPHILS PERCENT AUTO 50.6 43.0 - 75.0 % TBH LYMPHOCYTES PERCENT AUTO 33.4 20.5 - 60.0 % TBH MONOCYTES PERCENT AUTO 7.8 1.7 - 12.0 % TBH TBH EO % 6.9 0.9 - 7.0 % TBH BASOPHILS PERCENT AUTO 1.2 0.2 - 2.0 % TBH IMMATURE GRANULOCYTES PCT AUTO 0.1 0.0 - 0.5 % TBH NEUTROPHILS ABSOLUTE AUTO 4.1 1.4 - 6.5 10 3/uL TBH LYMPHOCYTES ABSOLUTE AUTO 2.7 1.2 - 3.8 10 3/uL TBH MONOCYTES ABSOLUTE AUTO 0.6 0.3 - 0.8 10 3/uL TBH TBH EO # 0.6 0.0 - 0.7 10 3/uL TBH BASOPHILS ABSOLUTE AUTO 0.1 0.0 - 0.1 10 3/uL TBH IMMATURE GRANULOCYTES ABS AUTO 0.01 0.00 - 0.03 10 3/uL TBH 10/09/2024 2:08 PM EDT 10/09/2024 2:08 PM EDT Narrative CLINISYNC - 10/09/2024 2:15 PM EDT us Generic External Data Provider CLIN[facility]NC F inal Result [facility] * (ABNORMAL) ALL BASIC METABOLIC PANEL (10/09/2024 2:08 PM EDT) SODIUM 140 136 - 145 mmol/L TBH POTASSIUM 3.9 3.5 - 5.1 mmol/L TBH CHLORIDE 106 98 - 107 mmol/L TBH CARBON DIOXIDE 26.8 21.0 - 32.0 mmol/L TBH ANION GAP 11.1 TBH GLUCOSE 114(H) 74 - 106 mg/dL TBH BLOOD UREA NITROGEN 14.0 7.0 - 18.0 mg/dL TBH CREATININE 0.83 0.55 - 1.02 mg/dL TBH TBH EGFR-AF SOMALI >60 >=60 mL/min/1.7 3m 2 TBH TBH EGFR-NON AF SOMALI >60 >=60 mL/min/1.7 3m 2 TBH BUN CREATININE RATIO 16.9 TBH CALCIUM 9.2 8.5 - 10.1 mg/dL TBH 10/09/2024 2:08 PM EDT 10/09/2024 2:08 PM EDT Narrative CLINISYNC - 10/09/2024 2:22 PM EDT us Generic External Data Provider CLINISYNC F inal Result [facility] * MM TOMOSYNTHESIS SCREENING BI (10/04/2024 12:29 PM EDT) Anatomical Region Laterality Modality Other 10/04/2024 12:2 9 PM EDT Narrative 10/04/2024 12:30 [place] [address] Mammography Report Signed Patient: STACEY FIGUEROA MR#: [id number] : 1975 Acct:[id number] Age/Sex: 49 / F ADM Date: 10/04/24 Loc: MAMMO Attending Dr: Essie Ryan NP Ordering Physician: Essie Ryan NP Results: Date of Service: 10/04/24 Follow Up: Procedure(s): MM tomosynthesis screening BI Accession Number(s): [id number] cc: Essie Ryan NP Patient Name: STACEY FIGUEROA MR#: [id number] : 1975 Exam Date: 10/04/2024 Ordering Doctor: NIURKA Ryan GREEN BUILDING ENGINEER RADIOLOGY REPORT PROCEDURE: MM TOMOSYNTHESIS SCREENING BI COMPARISON: MM TOMOSYNTHESIS SCREENING BI, 08/16/2023. MG MAMM SCREEN 3D GRACIE CAD, 02/09/2022. MG MAMM SCREEN 3D GRACIE CAD, 09/17/2020. MG MAMM SCREEN GRACIE W CAD, 11/14/2017. INDICATIONS: Screening Calculator Name NCI Breast Cancer Risk Assessment Tool 5 Year Breast Cancer Risk 1.90% Lifetime Breast Cancer Risk 17.90% Personal Breast Cancer No Personal Ovarian Cancer No Treatments None Family Cancers Aunt-maternal with breast cancer at age 40; Aunt-maternal with breast cancer at age 60; Aunt-maternal with breast cancer at age 60; Mother with breast cancer at age 65; Father with throat cancer at age 73; Aunt-paternal with colon cancer at age 55. LOCATION: [facility] BREAST COMPOSITION: There are scattered areas of fibroglandular density. FINDINGS: RIGHT BREAST: No significant suspicious finding. LEFT BREAST: No significant suspicious finding. DIAGNOSTIC CATEGORY 1--NEGATIVE. RECOMMENDATIONS: ROUTINE MAMMOGRAM AND CLINICAL EVALUATION IN 12 MONTHS. PLEASE NOTE: A NORMAL MAMMOGRAM DOES NOT EXCLUDE THE POSSIBILITY OF BREAST CANCER. A CLINICALLY SUSPICIOUS PALPABLE LUMP SHOULD BE BIOPSIED. Dictated by: Vipin Iniguez DO on 10/04/2024 at 12:25 Approved by: Vipin Iniguez DO on 10/04/2024 at 12:29 Dictated By: Vipin Iniguez D.O. Signed By: 10/04/24 1230 DD/ 1229 TD/TT: Block Splitter Operator: Procedure Note Radiology, Radiologist, MD - 10/04/2024 [place] [address] Mammography Report Signed Patient: STACEY FIGUEROA AMR#: [id number] : 1975Acct:[id number] Age/Sex: 49 / FADM Date: 10/04/24 Loc: MAMMO Attending Dr: Essie Ryan SERVICE CENTER ASSISTANT Ordering Physician: Aichholz,Essie NPResults: Date of Service: 10/04/24Follow Up: Procedure(s): MM tomosynthesis screening BI Accession Number(s): [id number] cc: Essie Ryan SERVICE CENTER ASSISTANT Patient Name: STACEY FIGUEROA MR#: [id number] : 1975 Exam Date: 10/04/2024 Ordering Doctor: NIURKA Ryan GREEN BUILDING ENGINEER RADIOLOGY REPORT PROCEDURE: MM TOMOSYNTHESIS SCREENING BI COMPARISON: MM TOMOSYNTHESIS SCREENING BI, 08/16/2023. MG MAMM [id number] GRACIE CAD, 02/09/2022. MG MAMM SCREEN 3D GRACIE CAD, 09/17/2020. MG MAMM SCREENBIL W CAD, 11/14/2017. INDICATIONS: Screening Calculator Name NCI Breast Cancer Risk Assessment Tool 5 Year Breast Cancer Risk 1.90% Lifetime Breast Cancer Risk 17.90% Personal Breast Cancer No Personal Ovarian Cancer No Treatments None Family Cancers Aunt-maternal with breast cancer at age 40; Aunt-maternal with breast cancer at age 60; Aunt-maternal with breastcancer at age 60; Mother with breast cancer at age 65; Father with throat cancerat age 73; Aunt-paternal with colon cancer at age 55. LOCATION: [facility] BREAST COMPOSITION: There are scattered areas of fibroglandulardensity. FINDINGS: RIGHT BREAST: No significant suspicious finding. LEFT BREAST: No significant suspicious finding. DIAGNOSTIC CATEGORY 1--NEGATIVE. RECOMMENDATIONS: ROUTINE MAMMOGRAM AND CLINICAL EVALUATION IN 12 MONTHS. PLEASE NOTE: A NORMAL MAMMOGRAM DOES NOT EXCLUDE THE POSSIBILITY OFBREAST CANCER. A CLINICALLY SUSPICIOUS PALPABLE LUMP SHOULD BE BIOPSIED. Dictated by: Vipin Iniguez DO on 10/04/2024 at 12:25 Approved by: Vipin Iniguez DO on 10/04/2024 at 12:29 Dictated By: Vipin Iniguez D.O. Signed By:10/04/24 1230 DD/ 1229 TD/TT: Block Splitter Operator: us Essie Ryan NP [facility] IMAG[facility] Final Result * XR ABDOMEN 1V (09/09/2024 12:29 PM EDT) Anatomical Region Laterality Modality Other 09/09/2024 12:2 9 PM EDT Narrative 09/09/2024 12:31 PM EDT The [place] [id number] XRay Report Signed Patient: STACEY FIGUEROA MR#: [id number] : 1975 Acct:[id number] Age/Sex: 49 / F ADM Date: 09/09/24 Loc: US Attending Dr: Leslie ONEILL Ordering Physician: Leslie Jung Date of Service: 09/09/24 Procedure(s): XR abdomen 1V Accession Number(s): [id number] cc: Essie Ryan NP; Leslie Jung The [place] [address] Patient Name: STACEY FIGUEROA MRN: [id number] date: 1975 Sex: F Assigned Patient Location: Current Patient Location: US Accession/Order Number: [id number] Exam Date: 09/09/2024 12:27 Report Date: 09/09/2024 [...] Lowe Jr., D.O.09/09/2024 12:29 PM Dictation Location: [place] [address] Electronically authenticated by: [id number] Y Date: 09/09/2024 12:29 Dictated By: Robby Lowe M.D. Signed By: 09/09/24 1231 DD/ 1229 TD/TT: Block Splitter Operator: Procedure Note Radiology, Radiologist, - 09/09/2024 [place] [address] XRay Report Signed Patient: STACEY FIGUEROA AMR#: [id number] : 1975Acct:[id number] Age/Sex: 49 / FADM Date: 09/09/24 Loc: US Attending Dr: Leslie ONEILL Ordering Physician: Leslie Jung Date of Service: 09/09/24 Procedure(s): XR abdomen 1V Accession Number(s): [id number] cc: Essie Ryan SERVICE CENTER ASSISTANT; Leslie Jung The [place] [address] Patient Name: STACEY FIGUEROA MRN: [id number] date: 1975 Sex: F Assigned Patient Location: US Current Patient Location: US Accession/Order Number: [id number] Exam Date: 09/09/2024 12:27 Report Date: 09/09/2024 12:29 At the request of: LESLIE ONEILL Procedure: XR abdomen 1V KUB: CLINICAL INFORMATION: Kidney stone follow-up. COMPARISON: Ultrasound performed earlier. FINDINGS: Single stones are noted within both kidneys, largest measuring 9mm involving the right kidney. Presumed pills are seen projecting over theright colon. No bowel obstruction or free air. Phleboliths are seen within the pelvis. Osseous structures demonstrate degenerative change. XR/XR abdomen 1V IMPRESSION: BILATERAL NEPHROLITHIASIS. Impression dictated by: Robby Lowe Jr., D.O.09/09/2024 12:29 PM Dictation Location: [place] [address] Electronically authenticated by: [id number] Y Date: 2:29 Dictated By: Robby Lowe M.D. Signed By:09/09/24 1231 DD/ 1229 TD/TT: Block Splitter Operator: us Generic External Data Provider [facility] IMAG[facility] Final Result * US RENAL BI (09/09/2024 11:28 AM EDT) Anatomical Region Laterality Modality Other 09/09/2024 11:2 8 AM EDT Narrative 09/09/2024 11:31 [place] [address] Ultrasound Report Signed Patient: STACEY FIGUEROA MR#: [id number] : 1975 Acct:[id number] Age/Sex: 49 / F ADM Date: 09/09/24 Loc: US Attending Dr: Leslie ONEILL Ordering Physician: Leslie Jung Date of Service: 09/09/24 Procedure(s): US renal BI Accession Number(s): [id number] cc: Essie Ryan NP; Leslie Jung [place] [address] Patient Name: STACEY FIGUEROA MRN: [id number] date: 1975 Sex: F Assigned Patient Location: US Current Patient Location: US Accession/Order Number: [id number] Exam Date: 09/09/2024 11:27 Report Date: 09/09/2024 [...] Lowe Jr., D.O.09/09/2024 11:28 AM Dictation Location: [place] [address] Electronically authenticated by: [id number] Y Date: 09/09/2024 11:28 Dictated By: Robby Lowe M.D. Signed By: 09/09/24 1131 DD/ 1128 TD/TT: Block Splitter Operator: Procedure Note Radiology, Radiologist, MD Morales 09/09/2024 [place] [address] Ultrasound Report Signed Patient: STACEY FIGUEROA AMR#: [id number] : 1975Acct:[id number] Age/Sex: 49 / FADM Date: 09/09/24 Loc: US Attending Dr: Leslie ONEILL Ordering Physician: Leslie Jung Date of Service: 09/09/24 Procedure(s): US renal BI Accession Number(s): [id number] cc: Essie Ryan SERVICE CENTER ASSISTANT; Leslie Jung The [place] [address] Patient Name: STACEY FIGUEROA MRN: [id number] date: 1975 Sex: F Assigned Patient Location: US Current Patient Location: US Accession/Order Number: [id number] Exam Date: 09/09/2024 11:27 Report Date: 09/09/2024 11:28 At the request of: LESLIE ONEILL Procedure: US renal BI BILATERAL RENAL AND BLADDER ULTRASOUND CLINICAL HISTORY: Kidney Stone COMPARISON: None FINDINGS: Estimation of renal size is approximately 10.8 cm on the right and 11 cmon the left. Bilateral nephrolithiasis largest measuring 12 mm involving the right kidney. No contour for a mass or hydronephrosis. The urinarybladder is partially distended with a volume of 192 ml. No shadowing stone orfocal lesion. US/US renal BI IMPRESSION: BILATERAL NEPHROLITHIASIS WITHOUT HYDRONEPHROSIS. Impression dictated by: Robby Lowe Jr., D.O.09/09/2024 11:28 AM Dictation Location: [place] [address] Electronically authenticated by: [id number] Y Date: 1:28 Dictated By: Robby Lowe M.D. Signed By:09/09/24 1131 DD/ 1128 TD/TT: Block Splitter Operator: us Generic External Data Provider [facility] IMAGING Final Result * TRANSFERRIN (08/29/2024 7:31 AM EST) TRANSFERRIN 278 192 - 364 mg/dL TBH Comment: Performed at: [facility] [id number] Ring Sewer: Avni Schmid PhD, Phone: [phone] 08/29/2024 7:31 AM EST 08/29/2024 7:32 AM EST Narrative CLINISYNC - 08/30/2024 5:07 AM EST us Essie Ryan NP LAB BLOOD ORDERABLES Final Resu lt CLINISYNC TB * METRO IRON AND TIBC (08/29/2024 7:31 AM EST) TBH IRON 55.0 50.0 - 170.0 ug/dL TBH TBH TOTAL IRON BINDING CAPACITY 326.0 250.0 - 450.0 ug/dL TBH TBH PERCENT IRON SATURATION 16.9 % TBH 08/29/2024 7:31 AM EST 08/29/2024 7:32 AM EST Narrative CLINISYNC - 08/29/2024 8:25 AM EST us Essie Ryan NP CLINISYNC Final Result CLINISYNC TBH * [facility] FERRITIN (08/29/2024 7:31 AM EST) FERRITIN 91.0 8.0 - 252.0 ng/mL TBH 08/29/2024 7:31 AM EST 08/29/2024 7:32 AM EST Narrative CLINISYNC - 08/29/2024 10:21 AM EST us Essie Ryan NP CLINISYNC Final Result CLINISYNC TBH * (ABNORMAL) [facility] CMP (CMP) (FOR REMOTE [facility] USE) (08/29/2024 7:31 AM EST) SODIUM 140 136 - 145 mmol/L TBH POTASSIUM 4.2 3.5 - 5.1 mmol/L TBH CHLORIDE 105 98 - 107 mmol/L TBH CARBON DIOXIDE 26.7 21.0 - 32.0 mmol/L TBH ANION GAP 12.5 TBH GLUCOSE 98 74 - 106 mg/dL TBH BLOOD UREA NITROGEN 13.0 7.0 - 18.0 mg/dL TBH CREATININE 0.86 0.55 - 1.02 mg/dL TBH TBH EGFR-AF SOMALI >60 >=60 mL/min/1. 73m 2 TBH TBH EGFR-NON AF SOMALI >60 >=60 mL/min/1. 73m 2 TBH BUN CREATININE RATIO 15.1 TBH CALCIUM 9.5 8.5 - 10.1 mg/dL TBH BILIRUBIN TOTAL 0.3 0.2 - 1.0 mg/dL TBH ASPARTATE AMINO TRANSFERASE 16 15 - 37 U/L TBH ALANINE AMINOTRANSFERASE 14 14 - 59 U/L TBH ALKALINE PHOSPHATASE 81 46 - 116 U/L TBH TOTAL PROTEIN 7.0 6.4 - 8.2 g/dL TBH ALBUMIN LEVEL 3.2(L) 3.4 - 5.0 g/dL TBH GLOBULIN 3.8 g/dL TBH ALBUMIN GLOBULIN RATIO 0.8 TBH 08/29/2024 7:31 AM EST 08/29/2024 7:32 AM EST Narrative CLINISYNC - 08/29/2024 8:31 AM EST us Essie Ryan NP CLINISYNC Final Result [facility] * (ABNORMAL) ALL LIPID PROFILE (FASTING) (08/29/2024 7:31 AM EST) TRIGLYCERIDES 117 <=150 mg/dL TBH CHOLESTEROL 214(H) <=200 mg/dL TBH HDL CHOLESTEROL 56 40 - 60 mg/dL TBH Comment: > or =60 mg/dl - LOW CARDIOVASCULAR RISK <40 mg/dl - HIGH CARDIOVASCULAR RISK LDL CHOLESTEROL CALCULATED 135.0 mg/dL TBH Comment: <100 mg/dl OPTIMAL 100-129 mg/dl NEAR OR ABOVE OPTIMAL 130-159 mg/dl BORDERLINE HIGH 160-189 mg/dl HIGH >190 mg/dl VERY HIGH VLDL CHOLESTEROL 23.4 mg/dL TBH CHOL HDL RATIO 3.8 TBH Comment: 3.3 - 4.4 LOW RISK 4.4 - 7.1 AVERAGE RISK 7.1 - 11.0 MODERATE RISK >11.0 HIGH RISK 08/29/2024 7:31 AM EST 08/29/2024 7:32 AM EST Narrative CLINISYNC - 08/29/2024 8:31 AM EST Essie Ryan NP CLINMAXIMILIAN Final Result [facility] from Last 3 Months Insurance [employer] [place] ForceManager Care Teams Food Processing Scientist Relationship Specialty Start Date End Date Essie Ryan NP [address] [place] [phone] PCP - [facility] 12/25/23 Yuriy Martins MD [address] [place] [phone] PCP - General Family Medicine 05/29/24 Essie Ryan NP [address] [place] [phone] Nurse Practitioner Family Medicine 08/17/23
--- OUTSIDE RECORDS SUMMARY | 2024-11-25 13:30 | XMS_ITS | Encounter Summary ---
Author Organization [facility] tem Address [id number] [address] [place] [address] Care Team Providers Care Armed Security Professional Name Role Phone CharlimatsienaEssie charles Magdaleno CHUN-TRADER Primary Care Provider Encounter Details Date Type Department Care Team (Late st Contact Info) Description 09/11/2023 Orders Only [facility] [address] [place] [phone] Ref Prov, [place] [address] Social History Tobacco Use Types Packs/Day Years [...] Priority Date/Time Associated Diagnosis Comments XR HIP RT 2-3 VIEWS W OR WO PELVIS Routine 09/11/2023 8:25 AM EDT XR HIP RT 2-3 VIEWS W OR WO PELVIS Routine 09/11/2023 8:24 AM EDT documented in this encounter Results * X-ray hip right 2-3 views with or without pelvis (09/11/2023 8:25 AM EDT) Anatomical Region Laterality Modality Lower Extremities, MSK, Hip Right Comp uted Radiography us Not In System Ref Prov IMG DIAGNOSTIC IMAGING OR DERABLES Final Result * X-ray hip right 2-3 views with or without pelvis (09/11/2023 8:24 AM EDT) Anatomical Region Laterality Modality Lower Extremities, MSK, Hip Right Comp uted Radiography us Not In System Ref Prov IMG DIAGNOSTIC IMAGING OR DERABLES Final Result documented in this encounter Visit Diagnoses Not on filedocumented in this encounter Care Teams Armed Security Professional Relationship Specialty Start Date End Date Essie Ryan, WEEDER THINNER-TRADER PCP - General Nurse Practitioner 10/03/18 documented as of this encounter
--- OUTSIDE RECORDS SUMMARY | 2024-11-25 13:30 | XMS_ITS | Encounter Summary ---
Author Organization [facility] Address [address] [place] [address] Care Team Providers Care Academic Intern Name Role Phone Essie Ryan CUSTOM MOTORCYCLE PAINTER Unavailable [phone] Essie Ryan NP Unavailable [phone] Yuriy Martins MD Primary Care Provider [phone] Encounter Details Date Type Department Care Team (Late st Contact Info) Description 06/05/2024 Clinisync Result Encounter [facility] External Department Unsolicited [...] declined 06/14/2023 How often do you attend cheondoism or scientologist serv ices? Patient declined 06/14/2023 Do you belong to any clubs o r organizations such as cheondoism groups, unions, fraternal or athletic groups, or [...] Recorded Patient Health Questionnaire-2 Score 0 11/08/2023 [facility] - Occupational Stress [...] place to sleep or slept in a fci (including now)? No 06/14/2023 Comments Unknown Sex [...] Office Visit [facility] [address] [place] [address] Essie Ryan NP [address] [place] [address] documented as of this encounter Procedures Procedure Name Priority Date/Time Associated Diagnosis Comments ECG 12-LEAD 06/05/2024 10:36 AM EST documented in this encounter Results * ECG 12 lead (06/05/2024 10:36 AM EST) 06/05/2024 10:3 6 AM EST Narrative [facility] - 2024 2:15 PM EST Ventricular Rate : 79 BPM Atrial Rate : 79 BPM P-R Interval : 124 ms QRS Duration : 102 ms Q-T Interval : 390 ms QTC Calculation(Bazett) : 447 ms Calculated P [place] : 56 degrees Calculated R [place] : 72 degrees Calculated T [place] : 65 degrees NORMAL SINUS RHYTHM NORMAL ECG Confirmed by PETR LUCIANO MD ([id number]) on 2024 2:12:45 PM NAME : STACEY FIGUEROA PID : [id number] : 1975 Gender : Female Race : ORD : [id number] Procedure Date : Jun 05 2024 10:36:34 Edit Date : 2024 14:15:04 Diagnosis: NORMAL SINUS RHYTHM NORMAL ECG Confirmed by PETR LUCIANO MD ([id number]) on 2024 2:12:45 PM Test Reason : PRE OP Location : 545 : [facility] Overread By : PETR LUCIANO MD Edited By : PETR LUCIANO MD Referred By : LOIS MCKEON Acquired by : TM, Procedure Note Radiology, Radiologist, MD - 2024 Ventricular Rate : 79 BPM Atrial Rate : 79 BPM P-R Interval : 124 ms QRS Duration : 102 ms Q-T Interval : 390 ms QTC Calculation(Bazett) : 447 ms Calculated P [place] : 56 degrees Calculated R [place] : 72 degrees Calculated T [place] : 65 degrees NORMAL SINUS RHYTHM NORMAL ECG Confirmed by PETR LUCIANO MD ([id number]) on 2024 2:12:45 PM NAME : STACEY FIGUEROA PID : [id number] : 1975 Gender : Female Race : ORD : [id number] Procedure Date : Jun 05 2024 10:36:34 Edit Date : 2024 14:15:04 Diagnosis: NORMAL SINUS RHYTHM NORMAL ECG Confirmed by PETR LUCIANO MD ([id number]) on 2024 2:12:45 PM Test Reason : PRE OP Location : 545 : [facility] Overread By : PETR LUCIANO MD Edited By : PETR LUCIANO MD Referred By : LOIS MCKEON Acquired by : VIDA, us Generic External Data Provider ECG ORDERABLES F inal Result [facility] documented in this encounter Visit Diagnoses Not on filedocumented in this encounter Care Teams Academic Intern Relationship Specialty Start Date End Date Essie Ryan NP [address] [place] [address] PCP - [facility] 12/25/23 Yuriy Martins MD [address] [place] [address] PCP - General Family Medicine 05/29/24 Essie Ryan NP [address] [place] [address] Nurse Practitioner Family Medicine 08/17/23 documented as of this encounter
--- OUTSIDE RECORDS SUMMARY | 2024-11-25 13:30 | XMS_ITS | Encounter Summary ---
Author Organization [facility] Address [address] [place] [address] Care Team Providers Care Market Relationship Manager Name Role Phone Yuriy Martins MD Primary Care Provider [phone] Essie Ryan VISCOSITY WORKER Unavailable [phone] Essie Ryan VISCOSITY WORKER Unavailable [phone] Yuriy Martins MD Primary Care Provider [phone] Encounter Details Date Type Department Care Team (Late st Contact Info) Description 02/29/2024 Abstract [facility] [address] [place] [address] Essie Ryan NP [address] [place] [address] Social History Tobacco Use Types Packs/Day Years [...] declined 06/14/2023 How often do you attend methodist or yarsanism serv ices? Patient declined 06/14/2023 Do you belong to any clubs o r organizations such as methodist groups, unions, fraternal or athletic groups, or [...] Patient Health Questionnaire-2 Score 0 11/08/2023 [facility]at ional [facility] - [...] Office Visit [facility] [address] [place] [address] Essie Ryan NP [address] [place] [address] documented as of this encounter Visit Diagnoses Not on filedocumented in this encounter Care Teams Market Relationship Manager Relationship Specialty Start Date End Date Yuriy Martins MD [address] [place] [address] PCP - General Family Medicine 08/17/23 04/09/24 Essie Ryan NP [address] [place] [address] PCP - [facility] 12/25/23 Yuriy Martins MD [address] [place] [address] PCP - General Family Medicine 05/29/24 Essie Ryan NP [address] [place] [address] Nurse Practitioner Family Medicine 08/17/23 documented as of this encounter
[2024-11-25 13:53] LABS: Basophils Absolute Auto 0.1 10^3/uL (0.0-0.1); Basophils Percent Auto 1.2 % (0.2-2.0); Eosinophils Absolute Auto 0.6 10^3/uL (0.0-0.7); Eosinophils Percent Auto 7.7 % (0.9-7.0); Hematocrit 38.2 % (36.0-48.0); Hemoglobin 12.4 g/dL (12.0-16.0); Immature Granulocytes Abs Auto 0.02 10^3/uL (0.00-0.03); Immature Granulocytes Pct Auto 0.3 % (0.0-0.5); Lymphocytes Absolute Auto 2.7 10^3/uL (1.2-3.8); Lymphocytes Percent Auto 36.2 % (20.5-60.0); Mean Corpuscular HGB Conc 32.5 g/dL (29.9-35.2); Mean Corpuscular Hemoglobin 28.6 pg (26.7-34.0); Mean Platelet Volume 10.4 fL (9.5-13.5); Monocytes Absolute Auto 0.6 10^3/uL (0.3-0.8); Monocytes Percent Auto 8.5 % (1.7-12.0); Neutrophils Absolute Auto 3.5 10^3/uL (1.4-6.5); Neutrophils Percent Auto 46.1 % (43.0-75.0); Platelet Count 276 10^3/uL (150-450); Red Blood Count 4.34 10^6/uL (4.20-5.40); Red Cell Distribution Width 13.1 % (11.0-15.0); White Blood Count 7.6 10^3/uL (4.0-11.0)
[2024-11-25 14:00] LABS: Anion Gap 10.1; BUN Creatinine Ratio 18.7; Calcium 9.3 mg/dL (8.5-10.1); Carbon Dioxide 29.9 mmol/L (21.0-32.0); Chloride 105 mmol/L (98-107); Estimated GFR (African America >60 (>=60 mL/min/1.73m^2); Estimated GFR (Non-African Ame >60 (>=60 mL/min/1.73m^2); Glucose 129 mg/dL (74-106); Sodium 141 mmol/L (136-145)
[2024-11-25 14:11] LABS: INR 0.93; Partial Thromboplastin Time 24.5 sec (22.3-36.2); Prothrombin Time 9.9 sec (9.0-11.6)
== END 2024-11-25 13:27 | disposition home or self-care (01) ==
LOC: PST 13:27
PROVIDERS: PCP Nurse Practitioner; Visit Provider Urology
DX: Z01.812 Encounter for preprocedural laboratory examination (principal); N20.0 Calculus of kidney
CPT/HCPCS: 80048; 85025; 85610; 85730

== ENCOUNTER 2024-11-28 10:36 | Day surgery (SDC) | payer OTHER, SELFPAY ==
--- OUTSIDE RECORDS SUMMARY | 2024-01-01 11:10 | XMS_ITS ---
Author Organization [facility] Address [address] [place] [address] Care Team Providers Care Manager Spanish Name Role Phone Imani Krueger CNP Primary Care Provider Dawson Spencer Unavailable [phone] Danny Angel Unavailable [phone] REASON FOR VISIT RIGHT HIP/ LUMBAR, Right hip pain Medications Medication SIG (Take, Route, Frequency, Duration) Notes Start Date End Date Status Mobic Active Problems Problem Type SNOMED Code ICD Code Onset Dates Problem Status W/U Status Risk Notes Problem Lumbar degenerative disc disease (M51.36) Active confirmed Encounters Encounter Location Date Provider Diagnosis [facility] Office [address] [place] [address] [place] [address] 01/01/2024 Angel Delgado Lumbar degenerative disc disease M51.36 and Primary osteoarthritis of right hip M16.11 Assessments Encounter Date Diagnosis (ICD Code) Assessment Notes Treatment Notes Treatment Clinical Notes Section Notes 01/01/2024 Lumbar degenerative disc disease (ICD-10 - M51.36) Lumbar DJD 01/01/2024 Primary osteoarthritis of right hip (ICD-10 - M16.11) Lumbar DJD 01/01/2024 Other I discussed today with Stacey regarding her right hip and lumbar back pain. She has tried injections with no relief. She is also tried anti-inflammat ories. Prior to proceeding with any total hip arthroplasty would like her to see a spine surgeon for evaluation for potential injections in her back. Will see her back following spine eval Lumbar DJD Plan Of Treatment Treatment Notes Assessment Notes Other I discussed today wi th Stacey regarding her right hip and lumbar back pain. She has tried injections with no relief. She is also tried anti-inflammatories. Prior to proceeding with any total hip arthroplasty would like her to see a spine surgeon for evaluation for potential injections in her back. Will see her back following spine eval Next Appt Details Follow Up: prn, Reason: Progress Notes * MARVIN FIGUEROAOB:1975 (48 yo F)Acc No.[id number]:01/01/2024 Patient: STACEY GUNN Provider: Elvira Delgado DO :1975 A ge:48 Y S ex:Female Date:01/01/2024 Address:[address] [place], [place] [address] , [id number] Pcp:Imani Krueger TECHNICAL SERVICE REPRESENTATIVE Subjective: * Chief Complaints: * R IGHT HIP/ LUMBARRight hip pain * HPI: G eneral Follow Up Information: Stacey is a 48-year-old female presenting today for follow-up for right hip pain. We obtained an MRI of her lumbar spine as she has been having quite a bit of back pain. Does not report much improvement in her pain for her hip or her back. Has had an intra-articular injection which has not provided her relief of her hip pain. Does report occasional numbness and tingling. * ROS: C onstitutional: Denies C hills. P M and R Intake: Denies F ever. D enies fever, chills, numbness tingling. * Medical History: * Surgical History: * Medications: T akingMobic Medication List reviewed and reconciled with the patientTaking Mobic Medication List reviewed and reconciled with the patient Objective: * Vitals: * Examination: G eneral examination: R ight lower extremity:Skin intact. Mild pain with logroll. No pain with FADIR or DUSTY. Motor and sensory exam intact without deficits. 2+ DP pulse. M RI Imaging Studies: R eviewed MRI of the lumbar spine which demonstrates multilevel degenerative change primarily present at L5-S1 with moderate to severe facet arthropathy. No central or foraminal stenosis. Assessment: * Assessment: 1. L umbar degenerative disc disease - M51.36 (Primary) 2 . P rimary osteoarthritis of right hip - M16.11 Lumbar DJD. Plan: * Treatment: * Procedure Codes: * Follow Up: p rn Forms: * Images: * Sign off status: Completed true * Provider: Elvira Delgado DO Date: 0 01/01/2024 Generated for Brenda sutton/Padmini/Scott on: 0 11/28/2024 10:38 AM EDT History and Physical Notes * HPI (History of Present Illness) Category Sub-Category Detail Notes Category Not es General Follow Up Information Staecy is a 48-year- old female presenting today for follow-up for right hip pain. We obtained an MRI of her lumbar spine as she has been having quite a bit of back pain. Does not report much improvement in her pain for her hip or her back. Has had an intra-articular injection which has not provided her relief of her hip pain. Does report occasional numbness and tingling. Examination Category Sub-Category Detail Notes Category Not es General examination Right lo wer extremity:Skin intact. Mild pain with logroll. No pain with FADIR or DUSTY. Motor and sensory exam intact without deficits. 2+ DP pulse MRI Imaging Studies Reviewed MRI of the lumbar spine which demonstrates multilevel degenerative change primarily present at L5-S1 with moderate to severe facet arthropathy. No central or foraminal stenosis
--- OUTSIDE RECORDS SUMMARY | 2024-01-03 07:00 | XMS_ITS ---
Author Organization [facility] [place] Address [address] [place] [address] Care Team Providers Care Tutor Coordinator Name Role Phone Charlimataishwarya BAHEssie Primary Care Provider Unavail able Randy Etienne [phone] Allergies Allergen (clinical drug ingredient) Drug/Non Drug Allergy documented on EMR Reaction Allergy Type Onset Date Status Penicillin fever Drug Allergy Active REASON FOR VISIT 6 week follow up Medications Medication SIG (Take, Route, Frequency, Duration) Notes Start Date End Date Status Omeprazole 40 MG Oral for 30 Days Active Meloxicam 15 MG 1 tablet Orally Once a day for 30 days 11/21/2023 Active Cetirizine HCl 10 MG Oral for 30 Days Not-Taking busPIRone HCl 7.5 MG Oral for 30 Days Not-Taking Atorvastatin Calcium 40 MG take 1 tablet by mouth every morning Oral for 90 Days Not-Taking Meloxicam 15 MG Oral for 30 Days Active Social History Tobacco Use: Social History Observation Description Date Details (start date - stop date) Never Smoker NA - NA Tobacco Control (Standard) Question Answer Notes Tobacco use: Nonsmoker Vital Signs Temperature 98.6 degrees Fahrenheit 01/03/20 24 Heart Rate 88 /min 01/03/2024 Respiratory Rate 18 /min 01/03/2024 Height 60 in 01/03/2024 Weight 197 lbs 01/03/2024 BMI 38.47 kg/m2 01/03/2024 Encounters Encounter Location Date Provider Diagnosis [facility] (PODIATRY) [address] [place] [address] [place] [address] 01/03/2024 Randy Etienne Plantar fascial fibromatosis M72.2 ; Achilles tendinitis, left leg M76.62 ; Contracture, left ankle M24.572 and Left foot pain M79.672 Assessments Encounter Date Diagnosis (ICD Code) Assessment Notes Treatment Notes Treatment Clinical Notes Section Notes 01/03/2024 Plantar fascial fibromatosis (ICD-10 - M72.2) Patient examined evaluated. All findings discussed with patient all questions answered to patient's satisfaction.Si nce previous visit, she states she has remained consistent with physical therapy, anti-inflammato yanni take meloxicam, massage and stretching at home. She states she feels overall at least 50% improved and is overall pleased with her progress. I advised to continue with the above conservative measures and if pain does not continue to improve or worsen she may follow-up on as-needed basis for further physical therapy, injections and/or discussed advanced imaging. She expressed understanding of all we discussed and left the office pleased. 01/03/2024 Achilles tendinitis, left leg (ICD-10 - M76.62) 01/03/2024 Contracture, left ankle (ICD-10 - M24.572) 01/03/2024 Left foot pain (ICD-10 - M79.672) Plan Of Treatment Treatment Notes Assessment Notes Plantar fascial fibromatosis Patient exa mined evaluated. All findings discussed with patient all questions answered to patient's satisfaction.Since previous visit, she states she has remained consistent with physical therapy, anti-inflammatories take meloxicam, massage and stretching at home. She states she feels overall at least 50% improved and is overall pleased with her progress. I advised to continue with the above conservative measures and if pain does not continue to improve or worsen she may follow-up on as-needed basis for further physical therapy, injections and/or discussed advanced imaging. She expressed understanding of all we discussed and left the office pleased. Progress Notes * Stacey SAHU ADOB:[birth year] (48 yo F)Acc No.[id number]:01/03/2024 Follow Up Patient: Stacey GUNN Provider: Thania Etienne DPM, MS :1975 A ge:48 Y S ex:Female Date:01/03/2024 Address:[facility] [phone] Pcp:Essie Ryan, [employer] Check In:10:53 AM CRYSTALCheck O ut:11:14 AM EST Subjective: * Chief Complaints: * 6 week follow up * HPI: G eneral: pt returns today for evaluation left heel pain. Finished P.T. 1 week ago. Has been doing home stretches and icing. Takes mobic daily. States ' Feels alot better rates left plantar midfoot and heel aching /. Wearing normal tennis shoes. * ROS: G eneral/Constitutional: Chills d enies. F ever d enies. W eight gain?denies. W eight loss d enies. S kin: Skin Ulcers d enies. S kin lesion(s) d enies. ? C ardiovascular: Difficulty breathing on exertion d enies. L eg cramps?denies. E lauren d enies. C hest pain d enies. R espiratory: Difficulty breathing d enies. D yspnea d enies.?Cough d enies. G astrointestinal: Diarrhea d enies. N ausea d enies. V omiting?denies. M usculoskeletal: Bone/Joint Symptoms d enies. C detention Pain d enies.?Leg cramps d enies. N eurologic: Numbness d enies. T ingling d enies . G ait abnormality d enies. ? H ematology: Anemia D enies. E asy bruising d enies. ? A ll Other Systems: Review of Systems (ROS) S ee HPI for details,All others negative except those mentioned in HPI. * Active Problem List K21.9 GERD (gastroesophage al reflux disease) Modified On:10/25/2023U Status:confirmed G47.33 NIRMALA (obstructive sle ep apnea) Modified On:10/25/2023 Status:confirmed F31.9 Bipolar 1 disorder Modified On:10/25/2023U Status:confirmed E78.5 HLD (hyperlipidemia) Modified On:10/25/2023U Status:confirmed K50.80 Crohn''s disease of both small and large intestine without complication Modified On:10/25/2023U Status:confirmed E66.9 Obesity, unspecified Modified On:10/25/2023 Status:confirmed Z68.38 Body mass index [BMI ] 38.0-38.9, adult Modified On:10/25/2023U Status:confirmed M79.672 Left foot pain Modified On:11/21/2023U Status:confirmed M24.572 Contracture, left an kle Modified On:11/21/2023 Status:confirmed * Medical History: * Surgical History: C ardiac Catheterization-06/03/2010 & 04/25/2012 hysterectomy tubal ligation thyroid nodule removal small bowel resection tonsillectomy * Hospitalization/Major Diagno stic Procedure: N o Hospitalization History. * Family History: F ather: COPD, Lung cancer, esophageal cancer, diagnosed with Unspecified essential hypertension, Unspecified heart disease, Diabetes mellitus without mention of complication, type II or unspecified type, not stated as uncontrolled. M other: breast cancer. P aternal Grandmother: stroke. M aternal aunt: stroke. * Social History: T obacco Use: T obacco Control (Standard) T obacco use: N onsmoker Electronic Cigarette use C urrent user N o * Medications: T akingMeloxicam 15 MG Tablet Oral Meloxicam 15 MG Tablet 1 tablet Orally Once a day Omeprazole 40 MG Capsule Delayed Release Oral Taking Meloxicam 15 MG Tablet Oral Taking Meloxicam 15 MG Tablet 1 tablet Orally Once a day Taking Omeprazole 40 MG Capsule Delayed Release Oral Not-Taking/PRNAtorvastatin Calcium 40 MG Tablet take 1 tablet by mouth every morning Oral busPIRone HCl 7.5 MG Tablet Oral Cetirizine HCl 10 MG Tablet Oral Medication List reviewed and reconciled with the patientNot- Taking/PRN Atorvastatin Calcium 40 MG Tablet take 1 tablet by mouth every morning Oral Not-Taking/PRN busPIRone HCl 7.5 MG Tablet Oral Not-Taking/PRN Cetirizine HCl 10 MG Tablet Oral Medication List reviewed and reconciled with the patient * Allergies: P enicillin: fever - Allergyno[Allergies Verified] Objective: * Vitals: W t:197lbs, Ht: 60 in, Temp:98.6F, HR:88/min, RR:18/min, BMI:38.47Index, Pain scale:21-10, Ht-cm: 152.4 cm, Wt-k.36 kg. * Examination: P odiatry Examination: SKIN: s kin intact, n o sign of infection. MUSCULOSKELETAL: P ain to the plantar medial instep of the left foot, Improved from previous.. No pain with calcaneal squeeze, Ankle joint dorsiflexion is to neutral but not past Muscle strength is 5/5 in all planes. Tenderness ton non-insertional achilles tendon A ppears resolved. NEUROLOGICAL: L ight touch sensation is intact in allnerve distributions, N egative Tinel sign. VASCULAR: P alpable pedal pulses bilaterally, No calf pain on squeeze. Assessment: * Assessment: 1. P lantar fascial fibromatosis - M72.2 (Primary) 2 . A chilles tendinitis, left leg - M76.62 3 . C ontracture, left ankle - M24.572 4 . L eft foot pain - M79.672 Plan: * Treatment: * Procedure Codes: * * Sign off status: Completed Visit Status: Lizzie JULIO (Check Out) true * Provider: Thania Etienne DPM, MS Date: 0 01/03/2024 Generated for Brenda sutton/Padmini/Johnsmitting on: 0 11/28/2024 10:39 AM EDT History and Physical Notes * HPI (History of Present Illness) Category Sub-Category Detail Notes Category Not es General pt returns toda y for evaluation left heel pain. Finished P.T. 1 week ago. Has been doing home stretches and icing. Takes mobic daily. States ' Feels alot better rates left plantar midfoot and heel aching 2/10. Wearing normal tennis shoes. Examination Category Sub-Category Detail Notes Category Not es Podiatry Examination SKIN: skin intact, no sign of infection MUSCULOSKELETAL: Pain to the plantar medial instep of the left foot, Improved from previous.. No pain with calcaneal squeeze, Ankle joint dorsiflexion is to neutral but not past Muscle strength is 5/5 in all planes. Tenderness ton non-insertional achilles tendon Appears resolved NEUROLOGICAL: Light touch sensation is intact in all nerve distributions, Negative Tinel sign VASCULAR: Palpable pedal pulse s bilaterally, No calf pain on squeeze
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
--- OUTSIDE RECORDS SUMMARY | 2024-01-31 09:00 | XMS_ITS ---
Author Organization [facility] Address [address] [place] [address] Care Team Providers Care Fringe Weaver Name Role Phone Charlidilcia NIURKAEssie Primary Care Provider Unavail Gerson Leigh Unavailable [phone] Allergies Allergen (clinical drug ingredient) Drug/Non Drug Allergy documented on EMR Reaction Allergy Type Onset Date Status Penicillin fever Drug Allergy Active REASON FOR VISIT 3MO-NIRMALA-PAP COMPLIANCE Medications Medication SIG (Take, Route, Frequency, Duration) Notes Start Date End Date Status Omeprazole 40 MG Oral for 30 Days Active Atorvastatin Calcium 40 MG take 1 tablet by mouth every morning Oral for 90 Days Not-Taking Meloxicam 15 MG 1 tablet Orally Once a day for 30 days 11/21/2023 Active busPIRone HCl 7.5 MG Oral for 30 Days Not-Taking Cetirizine HCl 10 MG Oral for 30 Days Not-Taking Meloxicam 15 MG Oral for 30 Days Active Social History Tobacco Use: Social History Observation Description Date Details (start date - stop date) Never Smoker NA - NA Tobacco Control (Standard) Question Answer Notes Tobacco use: Nonsmoker Encounters Encounter Location Date Provider Diagnosis [facility] [place] [address] [place] [address] 01/31/2024 Gerson Rosa Plan Of Treatment No Information Progress Notes * Stacey SAHU ADOB:[birth year] (49 yo F)Acc No.[id number]:01/31/2024 UNLOCKED PROGRESS NOTE Follow Up Patient: Stacey GUNN Provider: Lydia Rosa DO :1975 A ge:48 Y S ex:Female Date:01/31/2024 Address:[facility] [id number] Pcp:Essie Ryan CNP Subjective: * Chief Complaints: * 1 . 3MO-NIRMALA-PAP COMPLIANCE. * HPI: E pworth Sleepiness Scale: Norwood Sleepiness Scale C angeles of dozing while sitting and reading:?- C angeles of dozing while watching TV: - C angeles of dozing while sitting in a public place: - C angeles of dozing as a passenger in a car for an hour without a break: - C angeles of dozing while lying down in the afternoon to rest: - C angeles of dozing while sitting and talking to someone: - C angeles of dozing while sitting quietly after lunch: - C angeles of dozing in a stopped car for a few minutes in traffic: - T OTAL SCORE: 0 * Medical History: O SA (obstructive sleep apnea), Crohn''s disease of both small and large intestine without complication, Chronic sinusitis of both maxillary sinuses, HLD (hyperlipidemia), Bipolar 1 disorder, GERD (gastroesophageal reflux disease), De Quervain's tenosynovitis, right. * Surgical History: C ardiac Catheterization-06/03/2010 & 04/25/2012 , hysterectomy , tubal ligation , thyroid nodule removal , small bowel resection , tonsillectomy . * Hospitalization/Major Diagno stic Procedure: D enies Past Hospitalization. * Family History: F ather: COPD, Lung cancer, esophageal cancer, diagnosed with Diabetes mellitus without mention of complication, type II or unspecified type, not stated as uncontrolled, Unspecified essential hypertension, Unspecified heart disease. M other: breast cancer. P aternal Grandmother: stroke. M aternal aunt: stroke. 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 D rugs/Alcohol: D rugs H ave you used drugs other than those for medical reasons in the past 12 months? N o D oes the Patient have a History of Drug Abuse in the Past? N o Caffeine I ntake: 3 -4 cups per day Coffee/Soda Do you drink alcohol?: No. Do you smoke marijuana?: Denies. * Medications: T aking Meloxicam 15 MG Tablet Oral , Taking Meloxicam 15 MG Tablet 1 tablet Orally Once a day , Taking Omeprazole 40 MG Capsule Delayed Release Oral , Not- Taking/PRN Atorvastatin Calcium 40 MG Tablet take 1 tablet by mouth every morning Oral , Not-Taking/PRN busPIRone HCl 7.5 MG Tablet Oral , Not-Taking/PRN Cetirizine HCl 10 MG Tablet Oral * Allergies: P enicillin: fever - Allergy. Objective: * Vitals: Assessment: Plan: * Treatment: * Preventive Medicine: COVID Vaccination: H as patient had COVID Vaccination? COVID Vaccination N o Patient Refused Screenings/Counseling: F ALL RISK SCREENING Fall Risk Assessment: N o falls in the past year Are you afraid of falling? N o T OBACCO ACTION PLAN Exclusion: M edical Reason Non Smoker Type of Medical Reason: N ot indicated F AURA EXCLUSION Reason: P atient Reason refused/declined Type of Patient Reason: D rug declined by patient B OK ACTION PLAN Above Normal BMI Follow-up D ietary management education, guidance, and counseling * * Electronic signature of Sabrina Rosa DO on 11/28/2024 at 10:39 AM EDT Sign off status: Pending Visit Status: N /S N/C (No Show/No Charge) * Provider: Lydia Rosa DO Date: 0 01/31/2024 Generated for Brenda sutton/Padmini/eTbradlysmitting on: 0 11/28/2024 10:39 AM EDT History and Physical Notes * HPI (History of Present Illness) Category Sub-Category Detail Notes Category Not es Norwood Sleepiness Scale Norwood Sleepiness Scale Chance of dozing while sitting and reading:: - Chance of dozing while watching TV:: - Chance of dozing while sitting in a publ ic place:: - Chance of dozing as a passenger in a car for an hour without a break:: - Chance of dozing while lying down in the afternoon to rest:: - Chance of dozing while sitting and talki herman to someone:: - Chance of dozing while sitting quietly a fter lunch:: - Chance of dozing in a stopped car for a few minutes in traffic:: - TOTAL SCORE:: 0
--- OUTSIDE RECORDS SUMMARY | 2024-01-31 09:10 | XMS_ITS ---
Author Organization [facility] [place] Address [address] [place] [address] Care Team Providers Care Certification And Selection Specialist Name Role Phone Charlimataishwarya BAH Essie Primary Care Provider Unavail Gerson Leigh Unavailable [phone] REASON FOR VISIT No Show Appointment Encounters Encounter Location Date Provider Diagnosis [facility] [place] [address] [place] [address] 01/31/2024 Gerson Rosa Plan Of Treatment No Information Progress Notes * Stacey SAHU ADOB:[birth year] (48 yo F)Acc No.[id number]:01/31/2024 Patient: Romelia Stacey SILVESTRE :1975 A ge:48 Y S ex:Female Address:[address] [place] [id number] * true * Date: Generated for Brenda sutton/Padmini/eTransmitting on: 0 11/28/2024 10:38 AM EDT
--- OUTSIDE RECORDS SUMMARY | 2024-02-19 10:30 | XMS_ITS ---
Author Organization [facility] Address [address] [place] [address] Care Team Providers Care Product Promoter Sales Person Name Role Phone Imani Krueger CNP Primary Care Provider Dawson Spencer Unavailable [phone] Danny Angel Unavailable [phone] REASON FOR VISIT RIGHT HIP recheck after Spine eval, Right hip pain Medications Medication SIG (Take, Route, Frequency, Duration) Notes Start Date End Date Status Mobic Active Prilosec Active TraMADol Hydrochloride 50 mg 1 tab(s) orally every 6 hours for 7 days 02/19/2024 02/26/2024 Active Encounters Encounter Location Date Provider Diagnosis [facility] Office [address] [place] [address] [address] [place] [address] 02/19/2024 Angel Delgado Primary osteoarthrit is of right hip M16.11 Assessments Encounter Date Diagnosis (ICD Code) Assessment Notes Treatment Notes Treatment Clinical Notes Section Notes 02/19/2024 Primary osteoarthritis of right hip (ICD-10 - M16.11) Right hip OA 02/19/2024 Other I discussed today with Stacey regarding her right hip. Would not recommend total hip arthroplasty at her current age. Would also recommend she treat her back prior to proceeding with any arthroplasty. She is interested in surgery. Would like to have her get a second opinion. She would like to go to [place]. Will provide referral to [facility]. Right hip OA Plan Of Treatment Medication Medication Name Sig Start Date Stop Date Notes TraMADol Hydrochloride 50 mg 1 tab(s) or ally every 6 hours for 7 days 02/19/2024 02/26/2024 Treatment Notes Assessment Notes Other I discussed today vu Ibarra regarding her right hip. Would not recommend total hip arthroplasty at her current age. Would also recommend she treat her back prior to proceeding with any arthroplasty. She is interested in surgery. Would like to have her get a second opinion. She would like to go to [place]. Will provide referral to [facility]. Next Appt Details Follow Up: prn, Reason: Progress Notes * PRICILLA FIGUEROARADOB:1975 (48 yo F)Acc No.[id number]:02/19/2024 Patient: STACEY GUNN Provider: Elvira Delgado DO :1975 A ge:48 Y S ex:Female Date:02/19/2024 Address:[address] [place], [place] [id number] Pcp:Imani Krueger CNP Subjective: * Chief Complaints: * R IGHT HIP recheck after Spine evalRight hip pain * HPI: G eneral Follow Up Information: Stacey is a 48-year-old female presenting today for evaluation of bilateral hip pain. Has a history of right hip arthritis. Has underwent corticosteroid injection intra-articular which provided no relief. Has tried oral anti-inflammatories with minimal relief. Also has lumbar back pain which she has been sent for injections which she has not done at this time. She is interested in total hip arthroplasty. Denies any falls or injuries. * ROS: C onstitutional: Denies C [place]. P M and R Intake: Denies F ever. D enies fever, chills, no swelling. * Medical History: * Surgical History: * Medications: T akingPrilosec Mobic Medication List reviewed and reconciled with the patientTaking [facility]obic Medication List reviewed and reconciled with the patient Objective: * Vitals: * Examination: G [facility]eral [facility]Skin intact. Mild pain with logroll. Mild pain with FADIR and DUSTY. Motor and sensory exam intact without deficit. 2+ DP pulse. X -ray Imaging Studies: R eviewed plain film x-rays of the right hip in the office today which demonstrates a pincer type lesion of the acetabulum with evidence of good joint space on radiographs of the right hip. Assessment: * Assessment: 1. P rimary osteoarthritis of right hip - M16.11 (Primary) Right hip OA. Plan: * Treatment: 2. O thers Notes: I discussed today with Stacey regarding her right hip. Would not recommend total hip arthroplasty at her current age. Would also recommend she treat her back prior to proceeding with any arthroplasty. She is interested in surgery. Would like to have her get a second opinion. She would like to go to [place]. Will provide referral to [facility]. * Procedure Codes: * Follow Up: p rn Forms: * Images: * Sign off status: Completed true * Provider: Elvira Delgado DO Date: 0 02/19/2024 Generated for Brenda sutton/Padmini/Scott on: 0 11/28/2024 10:39 AM EDT History and Physical Notes * HPI (History of Present Illness) Category Sub-Category Detail Notes Category Not es General Follow Up Information Stacey is a 48-year- old female presenting today for evaluation of bilateral hip pain. Has a history of right hip arthritis. Has underwent corticosteroid injection intra-articular which provided no relief. Has tried oral anti-inflammatories with minimal relief. Also has lumbar back pain which she has been sent for injections which she has not done at this time. She is interested in total hip arthroplasty. Denies any falls or injuries. Examination Category Sub-Category Detail Notes Category Not es General examination Right lo wer extremity:Skin intact. Mild pain with logroll. Mild pain with FADIR and DUSTY. Motor and sensory exam intact without deficit. 2+ DP pulse X-ray Imaging Studies Review ed plain film x-rays of the right hip in the office today which demonstrates a pincer type lesion of the acetabulum with evidence of good joint space on radiographs of the right hip
[2024-10-09 14:01] VITALS: BP 107/76; PULSE 94; TEMP 36.3; O2SAT 98; BMI 38.0
[2024-11-25 13:44] VITALS: BP 125/80; PULSE 71; TEMP 36.4; O2SAT 100; BMI 38.6
[2024-11-28] VITALS (9 sets, daily range): BP systolic 100–146; BP diastolic 80–96; PULSE 80–96; TEMP 36.1–36.8; O2SAT 95–100; BMI 33.4
--- NOTE | 2024-11-28 10:30 | XR_ITS ---
The [address] [address] Patient Name: GAMAL FIGUEROA MRN: [id number] date: 1975 Sex: F Assigned Patient Location: [facility] Current Patient Location: [facility] Accession/Order Number: [id number] Exam Date: 11/28/2024 11:14 Report Date: 11/28/2024 11:20 At the request of: LYNN GARCIA MD Procedure: XR abdomen 1V SINGLE VIEW ABDOMEN COMPARISON: 09/09/[address] 06/08/2024 CLINICAL DATA: Presurgical planning. History of kidney stones. Supine view of the abdomen and pelvis was obtained. There is air and stool within the colon, greater on the right. There is no dilated small bowel. No soft tissue masses are noted. There are hemostasis clips and 3 ring-shaped radiopaque structures within the right lower abdomen which were also present previously. There is a right upper quadrant calcification measuring approximately 6 mm in size which may be a renal stone. No obvious radiopaque stones are present on the left. There are pelvic phleboliths bilaterally. Mild degenerative changes seen at the spine. There is a right hip prosthesis. XR/XR abdomen 1V IMPRESSION: RIGHT NEPHROLITHIASIS. Impression dictated by: Dinorah Clifford M.D. 11/28/2024 11:20 AM Dictation Location: [place] [address] Electronically authenticated by: [id number] Y Date: 11/28/2024 11:20
--- OUTSIDE RECORDS SUMMARY | 2024-11-28 10:38 | XMS_ITS | Encounter Summary ---
Author Organization [facility] Address [address] [place] [address] Care Team Providers Care Product Development Chemist Name Role Phone Yuriy Martins MD Primary Care Provider [phone] Essie Ryan PROOFSHEET CORRECTOR Unavailable [phone] Essie Ryan PROOFSHEET CORRECTOR Unavailable [phone] Yuriy Martins MD Primary Care Provider [phone] Encounter Details Date Type Department Care Team (Late st Contact Info) Description 11/08/2023 Orders Only [facility] IM [address] [place] [address] Shaikh Dutton MD [address] [place] [address] Social History Tobacco Use Types Packs/Day Years [...] declined 06/14/2023 How often do you attend amish or jainism serv ices? Patient declined 06/14/2023 Do you belong to any clubs o r organizations such as amish groups, unions, fraternal or athletic groups, or [...] Recorded Patient Health Questionnaire-2 Score 0 11/08/2023 [facility]at ional [facility] - [...] Visit [facility] [address] [place] [address] Essie Ryan NP [address] [place] [address] documented as of this encounter Visit Diagnoses Not on filedocumented in this encounter Care Teams Product Development Chemist Relationship Specialty Start Date End Date Yuriy Martins MD [address] [place] [address] PCP - General Family Medicine 08/17/23 04/09/24 Essie Ryan, NETO [address] [place] [address] PCP - [facility] 12/25/23 Yuriy Martins MD [address] [place] [address] PCP - General Family Medicine 05/29/24 Essie Ryan, PROOFSHEET CORRECTOR [address] [place] [address] Nurse Practitioner Family Medicine 08/17/23 documented as of this encounter
--- OUTSIDE RECORDS SUMMARY | 2024-11-28 10:38 | XMS_ITS | Encounter Summary ---
Author Organization [facility] Address [address] [facility] [place] [address] Care Team Providers Care Thermal Cutter Helper Name Role Phone Yuriy Martins MD Primary Care Provider [phone] Essie Ryan HIM CODER Unavailable [phone] Essie Ryan HIM CODER Unavailable [phone] Yuriy Martins MD Primary Care Provider [phone] Reason for Visit * Reason Comments Med Refill Encounter Details Date Type Department Care Team (Late st Contact Info) Description 09/08/2023 Refill [facility] [address] [place] [address] Essie Ryan, HIM CODER [address] [place] [address] Mixed hyperlipidemia (CMS/HCC) (Primary Dx) Social History [...] declined 06/14/2023 How often do you attend christianity or church serv ices? Patient declined 06/14/2023 Do you belong to any clubs o r organizations such as christianity groups, unions, fraternal or athletic groups, or [...] Recorded Patient Health Questionnaire-2 Score 2 07/13/2023 [facility] Occupat ional Health - Occupational [...] place to sleep or slept in a assisted (including now)? No 06/14/2023 Comments Unknown Sex [...] [facility] [address] [place] [address] Essie Ryan NP [address] [place] [address] documented as of this encounter Visit Diagnoses Diagnosis Mixed hyperlipidemia (CMS/HCC)- Primary Mixed hyperlipidemia documented in this encounter Care Teams Thermal Cutter Helper Relationship Specialty Start Date End Date Yuriy Martins MD [address] [place] [address] PCP - General Family Medicine 08/17/23 04/09/24 Essie Ryan NP [address] [place] [address] PCP - [facility] 12/25/23 Yuriy Martins MD [address] [place] [address] PCP - General Family Medicine 05/29/24 Essie Ryan NP [address] [place] [address] Nurse Practitioner Family Medicine 08/17/23 documented as of this encounter
--- OUTSIDE RECORDS SUMMARY | 2024-11-28 10:38 | XMS_ITS | Encounter Summary ---
Author Organization [facility] Address [address] [place] [address] Care Team Providers Care Aircraft Air Conditioning Mechanic Name Role Phone CharliandersonaraceliAlemkandi Geiger CNP Primary Care Provider [phone] Adán Torres DO Unavailable [phone] Dany ARDON MD, Alexis [place] Unavailable + Angel Delgado DO Unavailable [phone] Source Comments In the event this information is protected by the Federal Confidentiality of Alcohol and Drug AbusePatient Records regulations: The Federal rules restrict any use of the information to criminally investigate or prosecute any alcohol or drug abuse patient.[facility] Encounter Details Date Type Department Care Team (Late st Contact Info) Description 07/31/[address] [facility] [address] [place] [address] Provider, Meeta IBD VIRTUAL EDUCATION for [...] N ot on file 07/24/2022 Data from: https://www.neighborhoodatlas.medicine.[facility]/. Last address used for calculation [...] on filedocumented in this encounter Care Teams Aircraft Air Conditioning Mechanic Relationship Specialty Start Date End Date Essie Ryan, BELT CONVEYOR DRIER PCP - General Family Medicine 07/22/16 Adán Torres DO Obstetrics 07/22/16 Alexis Saenz II, MD [address] [employer] [place] [address] Referring Orthopedics 12/13/21 Angel Delgado DO [address] [place] [address] Referring Orthopedics 03/08/24 documented as of this encounter
--- OUTSIDE RECORDS SUMMARY | 2024-11-28 10:38 | XMS_ITS | Clinical Summary ---
Author Organization [facility] Address [address] [place] [address] Care Team Providers Care Quality Control Assistant Name Role Phone Essie Ryan MD Primary Care Provider [phone] Allergies Active Allergy Reactions Criticality Noted Date [...] morning. 90 tablet 3 11/11/2024 6 Active naloxone (Narcan) 4 mg/0.1 mL nasal spray [...] 01/18/2023 08/29/2023 Arthritis of right hip 01/14/2023 4 Multiple thyroid nodules 01/14/2023 024 Sensorineural hearing loss, bilateral 01/14/2023 08/29/2023 Bipolar depression 11/08/2022 Chronic GERD 11/08/2022 GERD (gastroesophageal reflux disease) 3 Crohn's disease of intestine 11/08/2022 Overview (11/08/2022): [...] Care Team Description 11/15/2024 Telephone [facility] [address] [place] [address] Javid Martínez, [facility] Sleep Study; Referral 11/11/2024 10:30 AM EDT Office Visit [address] [address] Milo Moran MD Primary hypertension (Primary Dx); Preop cardiovascular exam; Mixed hyperlipidemia; PAC (premature atrial contraction); PVC (premature ventricular contraction) 10/30/2024 12:00 PM EDT Follow-Up [facility] [address] [place] [address] Trinh Eduardo MD NIRMALA (obstructive sleep apnea) (Primary Dx); Chest pain, unspecified type; Neurostimulator device in situ 10/11/2024 Telephone [facility] [address] [place] [address] Bess Barfield MA 10/03/2024 2:00 PM EDT Office Visit [facility] [address] [place] [address] Marla Monroe CNP Benign hypertensive heart disease without heart failure (Primary Dx); Other chest pain; Palpitations; PAC (premature atrial contraction); PVC (premature ventricular contraction); Pulmonary HTN (CMS/HCC); Mixed hyperlipidemia 09/27/2024 9:00 AM EDT Follow-Up [facility] at [address] [address] Trinh Eduardo MD NIRMALA (obstructive sleep apnea) (Primary Dx); Neurostimulator device in situ 09/10/2024 Telephone [facility] [address] [place] [address] Trinh Eduardo MD Appointment from Last 3 [...] unit performed (10/03/2024 2:56 PM EDT) Marla Fer TELEVISION AND RADIO REPAIRER ECG ORDERABLES from Last 3 Months Care Teams Quality Control Assistant Relationship Specialty Start Date End Date Essie Ryan MD [address] [place] [address] PCP - General 08/29/23
--- OUTSIDE RECORDS SUMMARY | 2024-11-28 10:38 | XMS_ITS | Encounter Summary ---
Author Organization [facility] Address [address] [place], [place] [address] Care Team Providers Care Outcomes Analyst Name Role Phone CharliEssie ha Fely BAH Primary Care Provider Adán Torres DO Unavailable [phone] Dany ARDON MD, Alexis [place] Unavailable + Angel Delgado DO Unavailable [phone] Source Comments In the event this information is protected by the Federal Confidentiality of Alcohol and Drug AbusePatient Records regulations: The Federal rules restrict any use of the information to criminally investigate or prosecute any alcohol or drug abuse patient.[facility] Encounter Details Date Type Department Care Team (Late st Contact Info) Description 03/20/2024 Patient Msg Orthopaedic Surgery [facility] [address] [place] [address] Yanni Spring MD [address] [place] [address] Appointment Request Social History Tobacco Use [...] 03/15/2024 Data from: https://www.neighborhoodatlas.medicine.[facility]/. Last address used for calculation [...] on filedocumented in this encounter Care Teams Outcomes Analyst Relationship Specialty Start Date End Date Essie Ryan, BONDING MOLDER PCP - General Family Medicine 07/22/16 Adán Torres DO Obstetrics 07/22/16 Alexis Saenz II, MD [facility] [place] [address] Referring Orthopedics 12/13/21 Angel Delgado DO [address] [place] [address] Referring Orthopedics 03/08/24 documented as of this encounter
--- OUTSIDE RECORDS SUMMARY | 2024-11-28 10:38 | XMS_ITS | Encounter Summary ---
Author Organization [facility] Address [address] [place] [address] Care Team Providers Care Plastic Printer Name Role Phone Charlimataishwarya Essie Geiger CNP Primary Care Provider Adán Torres DO Unavailable [phone] Dany ARDON MD, [facility] Unavailable + Angel Delgado DO Unavailable [phone] Source Comments In the event this information is protected by the Federal Confidentiality of Alcohol and Drug AbusePatient Records regulations: The Federal rules restrict any use of the information to criminally investigate or prosecute any alcohol or drug abuse patient.[facility] Encounter Details Date Type Department Care Team (Late st Contact Info) Description 06/17/2024 Patient Msg Spine [place] [address] [place] [address] Provider, [facility] Important Reminder for [...] is lower risk 9 03/15/2024 Data from: https://www.neighborhoodatlas.medicine.[facility]/. Last address used for calculation [...] on filedocumented in this encounter Care Teams Plastic Printer Relationship Specialty Start Date End Date Essie Ryan CNP PCP - General Family Medicine 1/27/17 Adán Torres DO Obstetrics 07/22/16 Alexis Saenz II, MD [address] [place] [address] Referring Orthopedics 12/13/21 Angel Delgado DO [address] [place] [address] Referring Orthopedics 03/08/24 documented as of this encounter
--- OUTSIDE RECORDS SUMMARY | 2024-11-28 10:38 | XMS_ITS | Encounter Summary ---
Author Organization [facility] Address [address] [place] [address] Care Team Providers Care Supervisor International Reservations Name Role Phone Yuriy Martins MD Primary Care Provider [phone] Essie Ryan NP Unavailable [phone] Essie Ryan NP Unavailable [phone] Yuriy Martins MD Primary Care Provider [phone] Encounter Details Date Type Department Care Team (Late st Contact Info) Description 11/22/2023 Orders Only [facility] [address] [place] [address] Essie Ryan NP [address] [place] [address] Social History Tobacco Use Types Packs/Day Years [...] declined 06/14/2023 How often do you attend mandaeism or moravian serv ices? Patient declined 06/14/2023 Do you belong to any clubs o r organizations such as mandaeism groups, unions, fraternal or athletic groups, or [...] Recorded Patient Health Questionnaire-2 Score 0 11/08/2023 [facility] of Occupat ional Health - Occupational [...] place to sleep or slept in a fdc (including now)? No 06/14/2023 Comments Unknown Sex and Gender Information Value Date Recorded Sex Assigned at Not on file Legal Sex Female 7:01 PM EDT Gender Identity Not on file Sexual Orientation Not on file documented as of this encounter Plan of Treatment Upcoming Encounters Date Type Department Care Team (Late st Contact Info) Description 01/01/2025 1:00 PM EDT [facility] [address] [place] [address] Essie Ryan NP [address] [place] [address] documented as of this encounter Procedures Procedure Name Priority Date/Time Associated Diagnosis Comments XR FOOT 3+ VIEWS LEFT Routine 11/22/2023 8:39 AM EDT documented in this encounter Results * XR foot 3+ views left (11/22/2023 8:39 AM EDT) Anatomical Region Laterality Modality Lower Extremities, Foot Left Radiogra phic Imaging us Essie Aichholz SPEECH LANGUAGE ASSISTANT IMG XR PROCEDURES Final Result documented in this encounter Visit Diagnoses Not on filedocumented in this encounter Care Teams Supervisor International Reservations Relationship Specialty Start Date End Date Yuriy Martins MD [address] [place] [address] PCP - General Family Medicine 08/17/23 04/09/24 Essie Ryan NP [address] [place] [address] PCP - [facility] 12/25/23 Yuriy Martins MD [address] [place] [address] PCP - General Family Medicine 05/29/24 Essie Ryan NP [address] [place] [address] Nurse Practitioner Family Medicine 08/17/23 documented as of this encounter
--- OUTSIDE RECORDS SUMMARY | 2024-11-28 10:38 | XMS_ITS | Patient Health Record ---
Author Organization [facility] Address [address] [place] [address] Care Team Providers Care Web Designer Developer Name Role Phone Imani Krueger CNP Primary Care Provider Dawson Spencer Unavailable [phone] Angel Delgado Unavailable [phone] Patricia Nava Unavailable [phone] Allergies Allergen (clinical drug ingredient) Drug/Non Drug Allergy documented on EMR Reaction Allergy Type Onset Date Status penicillin (uncoded) Unknown Allergy Active Reason For Referral Reason APPROVED [facility].. .NOT SCHED...please precert mri lumbar spine at [facility] Diagnosis 1 Radiculopathy, lumba r region (M54.16) Diagnosis 2 Right lumbar pain (M 54.50) Referral Organization [facility] Referring Provider First Name Angel Referring Provider Last Name Danny Referring Provider Speciality Orthopedic Surgery Referred Organization [facility] laila Referred Provider Angel Delgado Referred Address [place], [place], Referred Provider Specialty Orthopedic S urgery Procedure 1 MRI Lumbar Spine w/o Dye (37881) General Notes Bree Dunham 2023 02:08:41 PM >Delio Amber 12/19/2023 03:31:24 PM > CALLED REQUESTING THERAPY NOTESDelio Amber 12/20/2023 07:59:17 AM > AUTH WAS APPROVED PER [facility]. APPROVED DATES ARE FROM 12/20/2023-02/03/2024. AUTH #[id number]. AUTH IN CHART. PER [facility], PATIENT HAS ACTIVE [facility] COVERAGE FOR THE MONTH OF NOVEMBER. FAXED TO [place]., Bree Dunham 12/22/2023 07:36:17 AM >order faxed to [place] Referral Priority Routine Reason REFERRAL TO [facility] FOR L5-S1 FACET INJECTION Diagnosis 1 Lumbar facet arthrop athy (M47.816) Referral Organization [facility] Referring Provider First Name Shayne Referring Provider Last Name [facility] Referring Provider Speciality Orthopedic Surgery Referred Organization Pain clinic General Notes Karo Sol 2023 09:17:01 AM >, Karo Sol 01/31/2024 10:25:20 AM >[facility] Referral Priority Routine Reason PLEASE CONTACT PATIAdam NT TO GET SCHEDULED FOR THE EARLIEST APPOINTMENT AVAILABLE WITH ANY ORTHOPEDIC SURGEON, PATIENT IS REQUESTING A 2ND OPINION Diagnosis 1 Osteophyte of right hip (M25.751) Diagnosis 2 Other bursal cyst, r ight hip (M71.351) Diagnosis 3 Primary osteoarthrit is of right hip (M16.11) Referral Organization [facility] Referring Provider First Name Angel Referring Provider Last Name Danny Referring Provider Speciality Orthopedic Surgery Referred Organization [facility] General Notes Bree Dunham 2023 03:45:53 PM > Referral Priority Routine Medications Medication SIG (Take, Route, Frequency, Duration) [...] Problem Status W/U Status Risk Notes Problem 162246447 Other bursal cys t, right hip (M71.351) Active confirmed Problem 311806591578254 Primary osteoarthritis of right hip (M16.11) Active confirmed Problem 262753943189582 Osteophyte of right hip (M25.751) Active confirmed Problem 772333895 Radiculopathy, lumbar region (M54.16) Active confirmed Problem 45864228 Other intervertebral disc degeneration, lumbosacral region (M51.37) Active confirmed Problem 39545834 Spondylosis without myelopathy or radiculopathy, lumbosacral region (M47.817) Active confirmed Problem Lumbar degenerative disc disease (M51.36) Active confirmed Vital Signs Height 5'0 in 01/12/2024 Weight 197 lbs 01/12/2024 BMI 38.47 01/12/2024 Encounters Encounter Location Date Provider Diagnosis [place] [address] [address] [facility] [place] [address] 12/18/2023 Angel Delgado Radiculopathy, lumba r region M54.16 and Osteophyte of right hip M25.751 [place] [address] [address] [facility] [place] [address] 01/01/2024 Angel Delgado Lumbar degenerative disc disease M51.36 and Primary osteoarthritis of right hip M16.11 [place] [address] [address] [facility] [place] [address] 01/12/2024 Patricia Nava Other intervertebral disc degeneration, lumbosacral region M51.37 and Spondylosis without myelopathy or radiculopathy, lumbosacral region M47.817 [place] [address] [address] [facility] [address] [place] [address] 02/19/2024 Angel Delgado Primary osteoarthrit is of right hip M16.11 Assessments Encounter Date Diagnosis (ICD Code) Assessment Notes Treatment Notes Treatment Clinical Notes Section Notes 12/18/2023 Radiculopathy, lumbar region (ICD-10 - M54.16) Right lumbar sciatica Right hip of right 12/18/2023 Osteophyte of right hip (ICD-10 - M25.751) Right lumbar sciatica Right hip of right 01/01/2024 Lumbar degenerative disc disease (ICD-10 - M51.36) Lumbar DJD 01/12/2024 Spondylosis without myelopathy or radiculopathy, lumbosacral region (ICD-10 - M47.817) 1. L5-S1 degenerative disc disease 2. L5-S1 right facet arthropathy 01/12/2024 Other intervertebral disc degeneration, lumbosacral region (ICD-10 - M51.37) 1. L5-S1 degenerative disc disease 2. L5-S1 right facet arthropathy 02/19/2024 Primary osteoarthritis of right hip (ICD-10 - M16.11) Right hip OA 01/01/2024 Primary osteoarthritis of right hip (ICD-10 - M16.11) Lumbar DJD 12/18/2023 Other I discussion today with the patient regarding her right hip pain. Is quite young for total hip arthroplasty. Do also have suspicion for lumbar radiculopathy. She has tried physical therapy with no relief of her pain. Will start order for MRI lumbar spine to further evaluate. Right lumbar sciatica Right hip of right 01/01/2024 Other I discussed today with Stacey regarding her right hip and lumbar back pain. She has tried injections with no relief. She is also tried anti-inflammator ies. Prior to proceeding with any total hip arthroplasty would like her to see a spine surgeon for evaluation for potential injections in her back. Will see her back following spine eval Lumbar DJD 01/12/2024 Other Plan established by Dr. Steiner. [...] disc disease 2. L5-S1 right facet arthropathy 02/19/2024 Other I discussed today with Stacey regarding her right hip. Would not recommend total hip arthroplasty at her current age. Would also recommend she treat her back prior to proceeding with any arthroplasty. She is interested in surgery. Would like to have her get a second opinion. She would like to go to [place]. Will provide referral to [facility]. Right hip OA Plan Of Treatment Pending Test Test Name Order Date MRI : Lumbosacral Spine W/O Contrast - 7 2148 12/18/2023 Injection 01/12/2024 [facility]- LUMBAR 4 VIEW 65444 11/06/2023 [facility]- PT/OT EVAL AND TREAT 3X/WEEK FOR 6 WEEKS 12/18/2023 Insurance Providers Payer Name Payer Address Payer Phone Subscriber Number Group Number Insured Name Patient Relationship to Insured Coverage Start Date Coverage End Date Medicaid [employer] [place] [address] [place] [address] [phone] [id number] STACEY FIGUEROA Self - patient is the insured Medical (General) History Medical History History ICD Code Anxiety: Yes CPAP: Yes CPAP Machine:: Yes Depression: Yes DRUG ALLERGIES: Yes Gastric Reflux: Yes Healthcare worker: No High Blood Pressure: Yes Irritable bowel syndrome: Yes Kidney stones: Yes Latex Allergy: No Mental Illness:: Yes Seen a Psychiatrist: Yes Sleep apnea: Yes Have you been in close conta ct with someone who has had MRSA within the last year?: No Have you ever had or presently have MRSA ?: Yes Have you been seen by a dentist in the l ast year?: Yes Do you have any dental probl ems i.e. Broken, loose, or chipped teeth, absess, gum disease?: No GI Problems: : Yes Have you been seen by a dentist in the l ast year?: No Surgical History Surgery Date(Month/Year) Thyroidectomy 12/2022
--- OUTSIDE RECORDS SUMMARY | 2024-11-28 10:38 | XMS_ITS | Encounter Summary ---
Author Organization [facility] Address [address] [place], [place] [address] Care Team Providers Care Telephone Assembler Name Role Phone Charlimataishwarya Essie Geiger CNP Primary Care Provider [phone] Adán Torres DO Unavailable [phone] Dany ARDON MD, [facility] Unavailable + Angel Delgado DO Unavailable [phone] Source Comments In the event this information is protected by the Federal Confidentiality of Alcohol and Drug AbusePatient Records regulations: The Federal rules restrict any use of the information to criminally investigate or prosecute any alcohol or drug abuse patient.[facility] Encounter Details Date Type Department Care Team (Late st Contact Info) Description 05/24/2024 Patient Msg Pre Anesthesia [address] [place] [address] Provider, [facility] Appointment Social [...] is lower risk 9 03/15/2024 Data from: https://www.neighborhoodatlas.medicine.[facility]/. Last address used for calculation [address] [...] on filedocumented in this encounter Care Teams Telephone Assembler Relationship Specialty Start Date End Date Essie Ryan, SEARCH OPTIMIZATION ANALYST PCP - General Family Medicine 07/22/16 Adán Torres DO Obstetrics 07/22/16 Alexis Saenz II, MD [address] [place] [address] Referring Orthopedics 12/13/21 Angel Delgado DO [address] [place] [address] Referring Orthopedics 03/08/24 documented as of this encounter
--- OUTSIDE RECORDS SUMMARY | 2024-11-28 10:38 | XMS_ITS | Referral Summary ---
Author Organization [facility] Address [address] [place] [address] Care Team Providers Care Car Wiper Name Role Phone Essie Ryan MD Primary Care Provider [phone] Encounters Date Type Department Care Team Description 11/15/2024 Telephone [facility] [address] [place] [address] Javid Martínez [facility] Sleep Study; Referral 11/11/2024 10:30 AM EDT Office Visit [address] [address] Milo Moran MD Primary hypertension (Primary Dx); Preop cardiovascular exam; Mixed hyperlipidemia; PAC (premature atrial contraction); PVC (premature ventricular contraction) 10/30/2024 12:00 PM EDT Follow-Up [facility] [address] [place] [address] Trinh Eduardo MD NIRMALA (obstructive sleep apnea) (Primary Dx); Chest pain, unspecified type; Neurostimulator device in situ 10/11/2024 Telephone [place] [address] [place] [address] Bess Barfield MA 10/03/2024 2:00 PM EDT Office Visit [facility] [address] [place] [address] Marla Monroe CNP Benign hypertensive heart disease without heart failure (Primary Dx); Other chest pain; Palpitations; PAC (premature atrial contraction); PVC (premature ventricular contraction); Pulmonary HTN (CMS/HCC); Mixed hyperlipidemia 09/27/2024 9:00 AM EDT Follow-Up [facility] [address] [place] [address] Trinh Eduardo MD NIRMALA (obstructive sleep apnea) (Primary Dx); Neurostimulator device in situ 09/10/2024 Telephone [facility] [address] [place] [address] Trinh Eduardo MD Appointment from Last 3 [...] performed (10/03/2024 2:56 PM EDT) Marla Monroe GEOSPATIAL INFORMATION SCIENTIST ECG ORDERABLES from Last 3 Months Care Teams Car Wiper Relationship Specialty Start Date End Date Essie Ryan MD [address] [place] [address] PCP - General 08/29/23
--- OUTSIDE RECORDS SUMMARY | 2024-11-28 10:38 | XMS_ITS | Encounter Summary ---
Author Organization [facility] Address [address] [place] [address] Care Team Providers Care Fsr Name Role Phone Yuriy Martins MD Primary Care Provider [phone] Essie Ryan NP Unavailable [phone] Essie Ryan NP Unavailable [phone] Yuriy Martins MD Primary Care Provider [phone] Encounter Details Date Type Department Care Team (Late st Contact Info) Description 11/10/2023 Orders Only [facility] [address] [place] [address] Essie Ryan NP [address] [place] [address] Social History Tobacco Use Types Packs/Day Years [...] declined 06/14/2023 How often do you attend catholic or congregational serv ices? Patient declined 06/14/2023 Do you belong to any clubs o r organizations such as catholic groups, unions, fraternal or athletic groups, or [...] Recorded Patient Health Questionnaire-2 Score 0 11/08/2023 [facility] - Occupational [...] place to sleep or slept in a skilled nursing (including now)? No 06/14/2023 Comments Unknown Sex [...] Office Visit [facility] [address] [place] [address] Essie Ryan NP [address] [place] [address] documented as of this encounter Procedures Procedure Name Priority Date/Time Associated Diagnosis Comments XR FOOT 3+ VIEWS LEFT Routine 11/08/2023 2:55 PM EDT XR FOOT 3+ VIEWS LEFT Routine 11/08/2023 12:09 PM EDT documented in this encounter Results * XR foot 3+ views left (11/08/2023 2:55 PM EDT) Anatomical Region Laterality Modality Lower Extremities, Foot Left Radiogra phic Imaging us Essie Ryan CRIMINAL INTELLIGENCE ANALYST IMG XR PROCEDURES Final Result * XR foot 3+ views left (11/08/2023 12:09 PM EDT) Anatomical Region Laterality Modality Lower Extremities, Foot Left Radiogra phic Imaging Essie Ryan CRIMINAL INTELLIGENCE ANALYST IMG XR PROCEDURES Final Result documented in this encounter Visit Diagnoses Not on filedocumented in this encounter Care Teams Fsr Relationship Specialty Start Date End Date Yuriy Martins MD [address] [place] [address] PCP - General Family Medicine 08/17/23 04/09/24 Essie Ryan NP [address] [place] [address] PCP - [facility] 12/25/23 Yuriy Martins MD [address] [place] [address] PCP - General Family Medicine 05/29/24 Essie Ryan NP [address] [place] [address] Nurse Practitioner Family Medicine 08/17/23 documented as of this encounter
--- OUTSIDE RECORDS SUMMARY | 2024-11-28 10:38 | XMS_ITS | Patient Health Record ---
Author Organization [facility] [place] Address [address] [place] [address] Care Team Providers Care Press Puller Name Role Phone Essie Ryan CNP Primary Care Provider Unavail able Randy Etienne Unavailable [phone] Gerson Rosa Unavailable [phone] Allergies Allergen (clinical drug ingredient) Drug/Non Drug Allergy documented on EMR Reaction Allergy Type Onset Date Status Penicillin fever Drug Allergy Active Reason For Referral No Information Medications Medication SIG (Take, Route, Frequency, Duration) Notes Start Date End Date Status Omeprazole 40 MG Oral for 30 Days Active Atorvastatin Calcium 40 MG take 1 tablet by mouth every morning Oral for 90 Days Not-Taking Meloxicam 15 MG Oral for 30 Days Active Meloxicam 15 MG 1 tablet Orally Once a day for 30 days 11/21/2023 Active busPIRone HCl 7.5 MG Oral for 30 Days Not-Taking Cetirizine HCl 10 MG Oral for 30 Days Not-Taking Social History Tobacco Use: Social History Observation Description Date Details (start date - stop date) Never Smoker NA - NA Tobacco Control (Standard) Question Answer Notes Tobacco use: Nonsmoker Problems Problem Type SNOMED Code ICD Code Onset Dates Problem Status W/U Status Risk Notes Problem 958109888 Obesity, unspecified (E66.9) Active confirmed Problem 204191365 Contracture, left ankle (M24.572) Active confirmed Problem Gastroesophageal reflux disease (598415893) GERD (gastroesophage al reflux disease) (K21.9) Active confirmed Problem Obstructive sleep apnea syndrome (74422288) NIRMALA (obstructive sleep apnea) (G47.33) Active confirmed Problem Bipolar 1 disorder (235427775) Bipolar 1 disorder (F31.9) Active confirmed Problem Hyperlipidaemia (95708088) HLD (hyperlipidemia ) (E78.5) Active confirmed Problem Pain in left foot (205795261954486) Left foot pain (M79.672) Active confirmed Problem Crohn's disease of small AND large intestines (32890402) Crohn''s disease of both small and large intestine without complication (K50.80) Active confirmed Problem 360832216 Body mass index [BMI] 38.0-38.9, adult (Z68.38) Active confirmed Vital Signs Heart Rate 88 /min 01/03/2024 Temperature 98.6 degrees Fahrenheit 01/03/2024 Respiratory Rate 18 /min 01/03/2024 Height 60 in 01/03/2024 Weight 197 lbs 01/03/2024 BMI 38.47 kg/m2 01/03/2024 Encounters Encounter Location Date Provider Diagnosis [facility] (PODI[facility]) [address] [place] [address] [place] [address] 01/03/2024 Randy Etienne Plantar fascial fibromatosis M72.2 ; Achilles tendinitis, left leg M76.62 ; Contracture, left ankle M24.572 and Left foot pain M79.672 [facility] [address] [place] [address] 01/31/2024 Gerson Rosa Assessments Encounter Date Diagnosis (ICD Code) Assessment [...] pain (ICD-10 - M79.672) Plan Of Treatment No Information Insurance Providers Payer Name Payer Address Payer Phone Subscriber Number Group Number Insured Name Patient Relationship to Insured Coverage Start Date Coverage End Date [employer] [place] [employer] [address] [place] [address] [id number] SahuBarron lebronra Self - patient is the insured 3 Medical (General) History Medical History History ICD Code NIRMALA (obstructive sleep apnea) G47.33 Crohn''s disease of both small and large intestine without complication K50.80 Chronic sinusitis of both maxillary sinu ses J32.0 HLD (hyperlipidemia) E78.5 Bipolar 1 disorder F31.9 GERD (gastroesophageal reflux disease) K 21.9 De Quervain's tenosynovitis, right M65.4 Surgical History Surgery Date(Month/Year) tonsillectomy small bowel resection thyroid nodule removal tubal ligation hysterectomy Cardiac Catheterization-06/03/2010 &
--- OUTSIDE RECORDS SUMMARY | 2024-11-28 10:38 | XMS_ITS | Encounter Summary ---
Author Organization [facility] Address [address] [place] [address] Care Team Providers Care Sewer Builder Name Role Phone Yuriy Martins MD Primary Care Provider [phone] Essie Ryan VISUAL ARTIST Unavailable [phone] Essie Ryan VISUAL ARTIST Unavailable [phone] Yuriy Martins MD Primary Care Provider [phone] Encounter Details Date Type Department Care Team (Late st Contact Info) Description 08/31/2023 Orders Only [facility] [address] [place] [address] Social History Tobacco Use Types [...] declined 06/14/2023 How often do you attend congregation or jewish serv ices? Patient declined 06/14/2023 Do you belong to any clubs o r organizations such as congregation groups, unions, fraternal or athletic groups, or [...] Recorded Patient Health Questionnaire-2 Score 2 07/13/2023 [facility] - Occupational Stress [...] [facility] [address] [place] [address] Essie Ryan NP [address] [place] [address] documented as of this encounter Procedures Procedure Name Priority Date/Time Associated Diagnosis Comments XR HIP 2-3 VIEWS RIGHT + PELVIS Routine 08/30/2023 8:52 AM EST documented in this encounter Results * XR HIP 2-3 VIEWS RIGHT + PELVIS (08/30/2023 8:52 AM EST) Anatomical Region Laterality Modality Radiographic Francheska ging [place] IMG XR PROCEDURES Final Result documented in this encounter Visit Diagnoses Not on filedocumented in this encounter Care Teams Sewer Builder Relationship Specialty Start Date End Date Yuriy Martins MD [address] [place] [address] PCP - General Family Medicine 08/17/23 04/09/24 Essie Ryan NP [address] [place] [address] PCP - [facility] 12/25/23 Yuriy Martins MD [address] [place] [address] PCP - General Family Medicine 05/29/24 Essie Ryan NP [address] [place] [address] Nurse Practitioner Family Medicine 08/17/23 documented as of this encounter
--- OUTSIDE RECORDS SUMMARY | 2024-11-28 10:38 | XMS_ITS | Encounter Summary ---
Author Organization [facility] Address [address] [place] [address] Care Team Providers Care Hide Handler Name Role Phone Yuriy Martins MD Primary Care Provider [phone] Essie Ryan CATALOGUE ILLUSTRATOR Unavailable [phone] Essie Ryan CATALOGUE ILLUSTRATOR Unavailable [phone] Yuriy Martisn MD Primary Care Provider [phone] Encounter Details Date Type Department Care Team [...] How often do you attend caodaism or anabaptism serv ices? Patient declined 06/14/2023 [...] Questionnaire-2 Score 0 11/08/2023 [facility] Questionnaire [...] EDT Office Visit [facility] [address] [place] [address] Essie Ryan NP [address] [place] [address] documented as of this encounter Procedures Procedure Name Priority Date/Time Associated Diagnosis Comments XR FOOT LT MIN 3V 11/22/2023 6:2 3 AM EDT documented in this encounter Results * XR FOOT LT MIN 3V (11/22/2023 6:23 AM EDT) Anatomical Region Laterality Modality Other 11/22/2023 6:23 AM EDT Narrative 11/22/2023 6:26 AM EDT The [address] [address] XRay Report Signed Patient: STACEY SAHU MR#: [id number] : 1975 Acct:[id number] Age/Sex: 48 / F ADM Date: 11/21/23 Loc: EC Attending Dr: Yessy Etienne D.P.M. Ordering Physician: Yessy Etienne D.P.M. Date of Service: 11/21/23 Procedure(s): XR foot LT min 3V Accession Number(s): [id number] cc: Essie Ryan CATALOGUE ILLUSTRATOR; Yessy Etienne D.P.M. The [place] [address] Patient Name: STACEY SAHU MRN: [id number] date: 1975 Sex: F Assigned Patient Location: Current Patient Location: Accession/Order Number: [id number] Exam Date: 11/21/2023 10:59 Report Date: 11/22/2023 [...] M.D. Signed By: 11/22/23625 DD/ 2 TD/TT: Carton Counter Feeder: Procedure Note Radiology, Radiologist, MD - 11/22/2023 [place] [address] XRay Report Signed Patient: STACEY SAHU AMR#: [id number] : 1975Acct:[id number] Age/Sex: 48 / FADM Date: 11/21/23 Loc: EC Attending Dr: Yessy Etienne D.P.M. Ordering Physician: Yessy Etienne D.P.M. Date of Service: 11/21/23 Procedure(s): XR foot LT min 3V Accession Number(s): [id number] cc: Essie Ryan CATALOGUE ILLUSTRATOR; Yessy Etienne D.P.M. [place] [id number] Patient Name: STACEY SAHU MRN: [id number] date: 1975 Sex: F Assigned Patient Location: Current Patient Location: Accession/Order Number: [id number] Exam Date: 11/21/2023 10:59 Report Date: 11/22/2023 [...] Gross M.D. Signed By:11/22/23625 DD/ 2 TD/TT: Carton Counter Feeder: us Generic External Data Provider [facility] Final Result documented in this encounter Visit Diagnoses Not on filedocumented in this encounter Care Teams Hide Handler Relationship Specialty Start Date End Date Yuriy Martins MD [address] [place] [address] PCP - General Family Medicine 08/17/23 04/09/24 Essie Ryan NP [address] [place] [address] PCP - [facility] 12/25/23 Yuriy Martins MD [address] [place] [address] PCP - General Family Medicine 05/29/24 Essie Ryan NP [address] [place] [address] Nurse Practitioner Family Medicine 08/17/23 documented as of this encounter
--- OUTSIDE RECORDS SUMMARY | 2024-11-28 10:38 | XMS_ITS | Encounter Summary ---
Author Organization [facility] Address [address] [place] [address] Care Team Providers Care Storm Chaser Name Role Phone Essie Ryan MD Primary Care Provider [phone] Reason for Referral * Consultation (Routine) - Pending Review Specialty Diagnoses / Procedures Referred By Wan gamboa Referred To Contact Sleep Medicine Diagnoses NIRMALA (obstructive sleep apnea) Procedures PA OFFICE/OUTPATIENT [facility] 60 MINUTES Trinh Eduardo MD [address] [place] [address] [facility] [address] [place] [address] Referral ID Status Reason Start Date Expiration Date Visits Requested Visits Authorized [id number] Pending Review Specialty Services Required 11/19/2024 11/19/2025 1 1 * (Routine) - Pending Review Specialty Diagnoses / Procedures Referred By Wan gamboa Referred To Contact Sleep Medicine Diagnoses NIRMALA (obstructive sleep apnea) Trinh Eduardo MD [address] [place] [address] [facility] [address] [place] [address] Referral ID Status Reason Start Date Expiration Date Visits Requested Visits Authorized [id number] Pending Review Specialty Services Required 11/19/2024 11/19/2025 1 1 Reason for Visit * Reason Onset Date Comments Sleep Study 11/15/2024 Referral 11/15/2024 Encounter Details Date Type Department Care Team (Late st Contact Info) Description 11/15/2024 Telephone [facility] [address] [place] [phone] Javid Martínez RPSGT [address] [place] [address] Sleep Study; Referral Social History Tobacco Use [...] notes, and split night study report to [facility]. * Telephone Encounter - LISA Eugene - 11/15/2024 10:22 AM EDT Left voicemail for patient: according to Marisa [facility] sleep medicine in [place] has Marisa-trained techs at their lab and [...] (pediatric) documented in this encounter Care Teams Storm Chaser Relationship Specialty Start Date End Date Essie Ryan MD [address] [place] [address] PCP - General 08/29/23 documented as of this encounter
--- OUTSIDE RECORDS SUMMARY | 2024-11-28 10:38 | XMS_ITS | Encounter Summary ---
Author Organization [facility] Address [address] [place] [address] Care Team Providers Care Rn Dermatology Name Role Phone Yuriy Martins MD Primary Care Provider [phone] Essie Ryan OPHTHALMIC TECH Unavailable [phone] Essie Ryan OPHTHALMIC TECH Unavailable [phone] Yuriy Martins MD Primary Care Provider [phone] Encounter Details Date Type Department Care Team [...] How often do you attend methodist or oriental orthodox serv ices? Patient declined 06/14/2023 Do you [...] Recorded Patient Health Questionnaire-2 Score 2 07/[facility]/2023 [facility] - [facility]ational Stress Questionnaire Answer Date [...] place to sleep or slept in a mcc (including now)? No 06/14/2023 Comments Unknown Sex [...] Visit [facility] [address] [place] [address] Essie Ryan NP [address] [place] [address] documented as of this encounter Procedures Procedure Name Priority Date/Time Associated Diagnosis Comments XR HIP 2 OR 3 VW RIGHT 08/29/2023 10:40 AM EST documented in this encounter Results * XR hip right 2 or 3 views (08/29/2023 10:40 AM EST) Anatomical Region Laterality Modality Lower Extremities, Hip Right Radiograp hic Imaging 08/29/2023 10:4 0 AM EST Narrative 08/29/2023 10:42 AM EST The [address] [address] XRay Report Signed Patient: STACEY SAHU MR#: [id number] : 1975 Acct:[id number] Age/Sex: 48 / F ADM Date: 08/29/23 Loc: RAD Attending Dr: KristinaStaff Physician oPwell Ordering Physician: Ilia Reno M.D. Date of Service: 08/29/23 Procedure(s): XR hip RT 2V w/ pelvis Accession Number(s): [id number] cc: Essie Ryan NP; Ilia Reno M.D. The [address] [address] Patient Name: STACEY SAHU MRN: [id number] date: 1975 Sex: F Assigned Patient Location: RAD Current Patient Location: RAD Accession/Order Number: [id number] Exam Date: 08/29/2023 10:06 Report Date: 08/29/2023 [...] Signed By: 08/29/23 1042 DD/ 1040 TD/TT: Wildlife Manager: Procedure Note Radiology, Radiologist, MD - 08/29/2023 [place] [address] XRay Report Signed Patient: STACEY SAHU AMR#: [id number] : 1975Acct:[id number] Age/Sex: 48 / FADM Date: 08/29/23 Loc: MINA Attending Dr: Ilia Reno M.D. Ordering Physician: Ilia Reno M.D. Date of Service: 08/29/23 Procedure(s): XR hip RT 2V w/ pelvis Accession Number(s): [id number] cc: Essie Ryan NP; Physician,Non-Staff Andre The [address] [address] Patient Name: STACEY SAHU MRN: [id number] date: 1975 Sex: F Assigned Patient Location: RAD Current Patient Location: RAD Accession/Order Number: [id number] Exam Date: 08/29/2023 10:06 Report Date: 08/29/2023 [...] M.D. Signed By:08/29/23 1042 DD/ 1040 TD/TT: Wildlife Manager: Generic External Data Provider IMG XR PROCEDURES Final Result documented in this encounter Visit Diagnoses Not on filedocumented in this encounter Care Teams Rn Dermatology Relationship Specialty Start Date End Date Yuriy Martins MD [address] [place] [address] PCP - General Family Medicine 08/17/23 04/09/24 Essie Ryan NP [address] [place] [address] PCP - [facility] 12/25/23 Yuriy Martins MD [address] [place] [address] PCP - General Family Medicine 05/29/24 Essie Ryan NP [address] [place] [address] Nurse Practitioner Family Medicine 08/17/23 documented as of this encounter
--- OUTSIDE RECORDS SUMMARY | 2024-11-28 10:38 | XMS_ITS | Encounter Summary ---
Author Organization [facility] Address [address] [place] [address] Care Team Providers Care Sod Farmer Name Role Phone Yuriy Martins MD Primary Care Provider [phone] Essie Ryan JAVA WEBSPHERE DEVELOPER Unavailable [phone] Essie Ryan JAVA WEBSPHERE DEVELOPER Unavailable [phone] Yuriy Martins MD Primary Care Provider [phone] Encounter Details Date Type Department Care Team (Late st Contact Info) Description 11/10/2023 Clinisync Result Encounter [facility] External Department Unsolicited Shaikh Dutton MD [address] [place] [address] Social History Tobacco Use Types Packs/Day Years [...] How often do you attend christianity or hoahaoism serv ices? Patient declined 06/14/2023 [...] Recorded Patient Health Questionnaire-2 Score 0 11/08/2023 [facility]ational Stress Questionnaire [...] place to sleep or slept in a correction (including now)? No 06/14/2023 Comments Unknown Sex [...] Office Visit [facility] [address] [place] [address] Essie Ryan NP [address] [place] [address] documented as of this encounter Procedures Procedure Name Priority Date/Time Associated Diagnosis Comments XR FOOT LT MIN 3V 11/10/2023 6:1 1 AM EDT documented in this encounter Results * XR FOOT LT MIN 3V (11/10/2023 6:11 AM EDT) Anatomical Region Laterality Modality Other 11/10/2023 6:11 AM EDT Narrative 11/10/2023 6:15 [place] [address] XRay Report Signed Patient: STACEY FIGUEROA MR#: [id number] : 1975 Acct:[id number] Age/Sex: 48 / F ADM Date: 11/08/23 Loc: RAD Attending Dr: Shaikh Marija Powell Ordering Physician: Shaikh Andre Dutton Date of Service: 11/08/23 Procedure(s): XR foot LT min 3V Accession Number(s): [id number] cc: Essie Ryan JAVA WEBSPHERE DEVELOPER; Shaikh Andre Dutton The [place] [id number] Patient Name: STACEY FIGUEROA MRN: [id number] date: 1975 Sex: F Assigned Patient Location: [facility] Current Patient Location: Accession/Order Number: [id number] Exam Date: 11/08/2023 16:47 Report Date: 11/10/2023 [...] M.D. Signed By: 11/10/23614 DD/ 0 TD/TT: Director Of Online Education: Procedure Note Radiology, Radiologist, - 11/10/2023 The [place] [id number] XRay Report Signed Patient: STACEY FIGUEROA AMR#: [id number] : 1975Acct:[id number] Age/Sex: 48 / FADM Date: 11/08/23 Loc: RAD Attending Dr: Shaikh Marija Powell Ordering Physician: Shaikh Andre Dutton Date of Service: 11/08/23 Procedure(s): XR foot LT min 3V Accession Number(s): [id number] cc: Essie Ryan JAVA WEBSPHERE DEVELOPER; Shaikh Andre Dutton [facility] [address] [place] [address] Patient Name: STACEY FIGUEROA MRN: [id number] date: 1975 Sex: F Assigned Patient Location: [facility] Current Patient Location: Accession/Order Number: [id number] Exam Date: 11/08/2023 16:47 Report Date: 11/10/2023 [...] Gross M.D. Signed By:11/10/23614 DD/ 0 TD/TT: Director Of Online Education: Shaikh Marija [facility] Final Result documented in this encounter Visit Diagnoses Not on filedocumented in this encounter Care Teams Sod Farmer Relationship Specialty Start Date End Date Yuriy Martins MD [address] [place] [address] PCP - General Family Medicine 08/17/23 04/09/24 Essie Ryan NP [address] [place] [address] PCP - [facility] 12/25/23 Yuriy Martins MD [address] [place] [address] PCP - General Family Medicine 05/29/24 Essie Ryan NP [address] [place] [address] Nurse Practitioner Family Medicine 08/17/23 documented as of this encounter
--- OUTSIDE RECORDS SUMMARY | 2024-11-28 10:39 | XMS_ITS | Encounter Summary ---
Author Organization [facility] Address [address] [place] [address] Care Team Providers Care Devil Dog Name Role Phone Yuriy Martins MD Primary Care Provider [phone] Unallocated, Noms Provider Primary Care Provi singh Yuriy Martins MD Primary Care Provider [phone] Essie Ryan CHIEF CONSTRUCTION INSPECTOR Unavailable [phone] Essie Ryan CHIEF CONSTRUCTION INSPECTOR Unavailable [phone] Yuriy Martins MD Primary Care Provider [phone] Encounter Details Date Type Department Care Team (Late st Contact Info) Description 07/13/2023 Abstract [facility] [address] [place] [address] Essie Ryan CHIEF CONSTRUCTION INSPECTOR [address] [place] [address] Social History Tobacco Use Types Packs/Day Years [...] How often do you attend faith or latter-day serv ices? Patient declined 06/14/2023 Do you [...] Recorded Patient Health Questionnaire-2 Score 2 07/13/2023 [facility]at ional Health - Occupational Stress [...] Visit [facility] [address] [place] [address] Essie Ryan, NETO [address] [place] [address] documented as of this encounter Visit Diagnoses Not on filedocumented in this encounter Care Teams Devil Dog Relationship Specialty Start Date End Date Yuriy Martins MD PCP - General Cardiology 11/29/22 07/16/23 Unallocated, Osmar Johnson MD [address] [place] [address] PCP - General Family Medicine 07/17/23 08/16/23 Yuriy Martins MD [address] [place] [address] PCP - General Family Medicine 08/17/23 04/09/24 Esise Ryan NP [address] [place] [address] PCP - [facility] 12/25/23 Yuriy Martins MD [address] [place] [address] PCP - General Family Medicine 05/29/24 Essie Ryan NP [address] [place] [address] Nurse Practitioner Family Medicine 08/17/23 documented as of this encounter
--- OUTSIDE RECORDS SUMMARY | 2024-11-28 10:39 | XMS_ITS | Encounter Summary ---
Author Organization [facility] Address [address] [place] [address] Care Team Providers Care Nanoscience Technician Name Role Phone Unallocated, Noms Provider Primary Care Provi singh Yuriy Martins MD Primary Care Provider [phone] Essie Ryan DINKEY OPERATOR SLATE Unavailable [phone] Essie Ryan NP Unavailable [phone] Yuriy Martins MD Primary Care Provider [phone] Encounter Details Date Type Department Care Team (Late st Contact Info) Description 08/16/2023 Clinisync Result Encounter [facility] External Department Unsolicited Essie Ryan, NETO [address] [place] [address] Social History Tobacco Use Types Packs/Day Years [...] declined 06/14/2023 How often do you attend uatsdin or catholic serv ices? Patient declined 06/14/2023 Do you belong to any clubs o r organizations such as uatsdin groups, unions, fraternal or athletic groups, or [...] Recorded Patient Health Questionnaire-2 Score 2 07/13/2023 [facility] - Occupational [...] place to sleep or slept in a usp (including now)? No 06/14/2023 Comments Unknown Sex [...] Visit [facility] [address] [place] [address] Essie Ryan NP [address] [place] [address] documented as of this encounter Procedures Procedure Name Priority Date/Time Associated Diagnosis Comments CT SINUS WO CON 08/16/2023 8:46 AM EST documented in this encounter Results * CT SINUS WO CON (08/16/2023 8:46 AM EST) Anatomical Region Laterality Modality Other 08/16/2023 8:46 AM EST Narrative 08/16/2023 8:48 [place] [address] CT Scan Report Signed Patient: STACEY FIGUEROA MR#: [id number] : 1975 Acct:[id number] Age/Sex: 48 / F ADM Date: 08/16/23 Loc: MAMMO Attending Dr: Essie Ryan DINKEY OPERATOR SLATE Ordering Physician: Essie Ryan NP Date of Service: 08/16/23 Procedure(s): CT sinus wo con Accession Number(s): [id number] cc: Essie Ryan NP [address] [address] Patient Name: STACEY FIGUEROA MRN: [id number] date: 1975 Sex: F Assigned Patient Location: [facility] Current Patient Location: [facility] Accession/Order Number: [id number] Exam Date: 08/16/2023 07:40 Report Date: 08/16/2023 [...] Signed By: 08/16/23 0848 DD/ 0846 TD/TT: Devops Consultant: Procedure Note Radiology, Radiologist, MD - 08/16/2023 [place] [address] CT Scan Report Signed Patient: STACEY FIGUEROA AMR#: [id number] : 1975Acct:[id number] Age/Sex: 48 / FADM Date: 08/16/23 Loc: MAMMO Attending Dr: Essie Ryan NP Ordering Physician: Essie Ryan NP Date of Service: 08/16/23 Procedure(s): CT sinus wo con Accession Number(s): [id number] cc: Essie Ryan NP [place] [address] Patient Name: STACEY FIGUEROA MRN: [facility]:[id number] date: 1975 Sex: F Assigned Patient Location: MAMMO Current Patient Location: [facility] Accession/Order Number: [id number] Exam Date: 08/16/2023 07:40 Report Date: 08/16/2023 [...] Dawson Gross M.D. Signed By:08/16/2348 DD/ TD/TT: Devops Consultant: us Essie Ryan DINKEY OPERATOR [facility] Final Result documented in this encounter Visit Diagnoses Not on filedocumented in this encounter Care Teams Nanoscience Technician Relationship Specialty Start Date End Date Unallocated, Noms Provider, [address] [place] [address] PCP - General Family Medicine 07/17/23 08/16/23 Yuriy Martins MD [address] [place] [address] PCP - General Family Medicine 08/17/23 04/09/24 Essie Ryan NP [address] [place] [address] PCP - [facility] 12/25/23 Yuriy Martins MD [address] [place] [address] PCP - General Family Medicine 05/29/24 Essie Ryan NP [address] [place] [address] Nurse Practitioner Family Medicine 08/17/23 documented as of this encounter
--- OUTSIDE RECORDS SUMMARY | 2024-11-28 10:39 | XMS_ITS | Encounter Summary ---
Author Organization [facility] tem Address [id number] [address] [place] [address] Care Team Providers Care Procedures Nurse Name Role Phone Essie Ryan APRN-CONTINUOUS IMPROVEMENT MANAGER Primary Care Provider Encounter Details Date Type Department Care Team (Late st Contact Info) Description 05/01/2024 Telephone [facility] - [address] [place] [address] [place] [address] [place] [address] [address] [place] [address] Social History Tobacco Use Types Packs/Day Years [...] on filedocumented in this encounter Care Teams Procedures Nurse Relationship Specialty Start Date End Date Essie Ryan, LAY-CONTINUOUS IMPROVEMENT MANAGER PCP - General Nurse Practitioner 10/03/18 documented as of this encounter
--- OUTSIDE RECORDS SUMMARY | 2024-11-28 10:39 | XMS_ITS | Clinical Summary ---
Author Organization [employer] [facility] tem Address [id number] [address] [place] [address] Care Team Providers Care Taxation Agent Name Role Phone Shelby Essie Dolan APRN-ARTILLERY OFFICER Primary Care Provider Allergies Active Allergy Reactions [...] Care Team Description 10/31/2024 Telephone [facility] - Sleep Disorders [address] [place] [address] Trinh Eduardo MD Sleep Lab (PAP) 10/30/2024 2:15 PM EDT - 10/30/2024 11:59 PM EDT Hospital Encounter [facility] - Radiology [address] [place] [address] Chest pain, unspecified type Discharge Disposition: Home 10/30/2024 2:15 PM EDT - 10/30/2024 11:59 PM EDT Hospital Encounter [facility] - Radiology [address] [place] [address] Chest pain, unspecified type Discharge Disposition: Home 10/30/2024 Travel 10/30/2024 Orders Only [facility] of [facility] [address] [facility] [address] [place] [address] Trinh Eduardo MD NIRMALA (obstructive sleep apnea) (Primary Dx) 09/06/2024 8:15 AM EDT [facility] [address] [facility] [address] [place] [address] Tevin Esquivel MD Obstructive sleep [...] 09/06/2025 09/06/2024 Medical Devices Implanted Type Area Truck Safety Inspector Device Identifier Shelf Expiration Date Model / Serial / Lot Generator Nrstm - [id number] - [id number] Implanted:Qty: 1 on 08/22/2024 by Tevin Esquivel MD at [facility] Generator Right: Chest [employer] 03/18/2027 3028 / [id number] / NA Lead Ns [facility] - [id number] - [id number] Implanted:Qty: 1 on 08/22/2024 by Tevin Esquivel MD at [facility] Implant Lead Right: Chest [employer] 03/15/2027 4340 / [id number] / NA Lead Nrstm Inspr 3 Elect Cuf Tnl [employer] - [id number] - [id number] Implanted:Qty: 1 on 08/22/2024 by Tevin Esquivel MD at [facility] Neuro Stimulator Right: Neck [employer] 10/06/2026 4063 / [id number] / NA Procedures Procedure Name Priority Date/Time [...] on 11/02/2024 11:41 PM Trinh Eduardo MD [facility] DIAGNOSTIC IMAGING ORDERABL ES Final Result [...] on 10/30/2024 3:32 PM Trinh Eduardo MD [facility] DIAGNOSTIC IMAGING ORDERABL ES Final Result from Last 3 Months Insurance I Read Books Care Teams Taxation Agent Relationship Specialty Start Date End Date Essie Ryan, PHOTOGRAPHERS' MODEL-ARTILLERY OFFICER PCP - General Nurse Practitioner 10/03/18
--- OUTSIDE RECORDS SUMMARY | 2024-11-28 10:39 | XMS_ITS | Clinical Summary ---
Author Organization [facility] Address [address] [place], [place] [id number] Care Team Providers Care Guide Foreign Tour Name Role Phone Essie Ryan CNP Primary Care Provider [phone] Adán Torres DO Unavailable [phone] Dany ARDON MD, Alexis Bradley Unavailable + Angel Delgado DO Unavailable [phone] Allergies Active Allergy Reactions Criticality Noted [...] 7 Crohn's disease without comp lication (HCC) [id number] 07/27/2016 Pulmonary HTN Assessment & Plan (06/05/2024 [...] Team Description 09/30/2024 Get Medical Advice Orthopaedics [address] [place] [address] Yanni Spring MD Visit 09/30/2024 Patient Msg Orthopaedics [address] [id number] Yanni Spring MD Appointment Request 09/30/2024 Patient Msg Orthopaedics [address] [place] [address] Yanni Spring MD Appointment Request 09/24/2024 Travel 09/17/2024 Get Medical Advice Orthopaedics [address] [place] [address] Yanni Spring MD Medicine from Last 3 [...] drink = 0.6 oz pur e alcohol) [facility] Utilities Answer Date Recorded In the past [...] any time in the past 12 m [facility], were you homeless or living in a residential (including now)? No 07/01/2024 Area Deprivation Index Answer Date Erik rded National Score (1-100), lower number is lower ri sk 93 03/15/2024 State Score (1-10), lower number is lower risk 9 03/15/2024 Data from: https://www.neighborhoodatlas.medicine.[facility].edu/. Last address used for calculation [address] [...] Completed 12/12/2020 Medical Devices Implanted Type Area Project Administrative Assistant Device Identifier Shelf Expiration Date Model / Serial / Lot Insert Acetabular 32mm 0d D Hip X3 Trident Sterile Latex Free - [id number] Implanted:Qty: 1 on 07/01/2024 at [facility] - Hip Right: Bone - Hip AYDEE 11/28/2028 [id number] / / [id number] Shell Trident Ii 48mm D Tritanium Acetabular 3 Screw Hole Cluster Sterile - [id number] Implanted:Qty: 1 on 07/01/2024 at [facility] - Hip Right: Bone - Hip [employer] 04/11/2029 [id number] / / [id number] Stem Femoral 8x99mm Size 2 High Insignia Collared - [id number] Implanted:Qty: 1 on 07/01/2024 at [facility] - Hip Right: Bone - Hip AYDEE 01/31/2029 [id number] / / [id number] Head V40 32mm -4mm Offset Taper Biolox Delta Femoral Hip - [id number] Implanted:Qty: 1 on 07/01/2024 at [facility] - Hip Right: Bone - Hip [employer] 12/25/2028 [id number] / / [id number] Screw Trident Ii 6.5mm 30mm Bone Low Profile Hexagonal Sterile - [id number] Implanted:Qty: 1 on 07/01/2024 at [facility] Screw Right: Bone - Hip [employer] 02/08/2029 [id number] / / [id number] Procedures Procedure Name Priority [...] - 99 mg/dL 06/06/2024 10:14 AM EST [facility] Comment: The [place] [employer] Association (ADA) provides guidance for cutoff [...] Standards of Medical Care in Diabetes 2016, [place] [employer]. Diabetes Care. 2016.39(Suppl 1). BUN 17 7 - 21 mg/dL 06/06/2024 10:14 AM EST [facility] Creatinine 0.70 0.58 - 0.96 mg/dL 06/06/2024 10:14 AM [facility] Sodium 140 136 - 144 mmol/L 06/06/2024 10:14 AM [facility] Potassium 4.9 3.7 - 5.1 mmol/L 06/06/2024 10:14 AM [facility] Chloride 104 98 - 107 mmol/L 06/06/2024 10:14 AM EST [facility] CO2 25 22 - 30 mmol/L 06/06/2024 10:14 AM EST [facility] Anion Gap 11 8 - 15 mmol/L 06/06/2024 10:14 AM EST [facility] Calcium, Total 9.6 8.5 - 10.2 mg/dL 06/06/2024 10:14 AM EST [facility] Estimated Glomerular Filtration Rate 108 >=60 mL/min/1.7 3m 06/06/2024 10:14 AM EST [facility] Comment:Estimated Glomerular Filtration Rate (eGFR) is [...] EST 06/05/2024 10:59 AM EST Negrita Tejeda CLINICAL MATERIAL HANDLER.[facility] Naomi l Result [facility] [address] [place] [address], * COLONOSCOPY GEN ANES (12/15/2020 7:19 AM EDT) Industrial Engineering Technician Q3 Patient Name: Stacey Sahu Procedure Date: [...] for review. Procedure Code(s): --- Professional --- 45367, Colonoscopy, flexible; with biopsy, single or multiple CPT copyright 2019 [place]. All rights reserved. Attending Participation: [...] Total Negative Negative 12/13/2020 11:17 AM EDT [facility] Hep C Antibody IA Negative Negative 12/13/2020 11:18 AM EDT [facility] HBsAg Negative Negative 12/13/2020 11:18 AM EDT [facility] Hep B Surface Ab, Qual Negative Negative 12/13/2020 11:18 AM EDT [facility] Comment:NEGATIVE Blood BLOOD SPECIMEN / Unknown 12/12/2020 10:19 PM EDT 12/12/2020 10:20 PM EDT Vania Jackson MD LABORATORY Final Resu lt [facility] [address] [place] [address] [facility] [address] [place] [address] from Last 3 Months or Most Recently Relevant to Health Maintenance Insurance LATRELL JACOB Care Teams Guide Foreign Tour Relationship Specialty Start Date End Date Essie Ryan CNP PCP - General Family Medicine 07/22/16 Adán Torres DO Obstetrics 07/22/16 Alexis Saenz II, MD [address] [place] [address] Referring Orthopedics 12/13/21 Angel Delgado DO [address] [place] [address] Referring Orthopedics 03/08/24
--- OUTSIDE RECORDS SUMMARY | 2024-11-28 10:39 | XMS_ITS | Patient Health Record ---
Author Organization [facility] [email or web address] [facility] Address [address] [place] [address] Care Team Providers Care Guest Relation Officer Name Role Phone Rosmery Dukes Primary Care Provider [phone] Reason For Referral Reason referral placed by Jose Ryan for pt to see psych *02/08 LVM-SENT SMS Diagnosis 1 Bipolar affective di sorder, remission status unspecified (F31.9) Referred Organization [facility] Referred Provider Bernarda Dukes Referred Address [address] [place], [place], Referred Provider Specialty Psychiatry Referral Priority Routine Medications Medication SIG (Take, Route, Fr equency, Duration) Notes Start Date End Date Status Ibuprofen 800 MG 1 tablet with food o r milk as needed Orally Three times a day 02/02/2022 Active Problems Problem Type SNOMED Code ICD Code Onset Dates Problem Status W/U Status Risk Notes Problem [id number] Bipolar affective disorder, remission status unspecified (F31.9) Active confirmed Plan Of Treatment No Information Insurance Providers Payer Name Payer Address Payer Phone Subscriber Number Group Number Insured Name Patient Relationship to Insured Coverage Start Date Coverage End Date z[employer] CHP-terme d [address] [place] [address] [id number] PRICILLA FIGUEROARA Self - patient is the insured 2 zMEDICAID C after [employer] E-termed [address] [place] [address] [id number] GAMAL FIGUEROA Self - patient is the insured 2 zDENTAL DQ [facility] [place]-ter[place] [address] [place] [phone] [id number] FIGUEROA, GAMAL Self - patient is the insured [address] [facility] after [facility] CHP-terme d [address] [place] [address] [id number] GAMAL FIGUEROA Self - patient is the insured 2
--- OUTSIDE RECORDS SUMMARY | 2024-11-28 10:39 | XMS_ITS | Encounter Summary ---
Author Organization [facility] tem Address [id number] [address] [place] [address] Care Team Providers Care Take Out Waiter Name Role Phone CharlimatsienaEssie charles Magdaleno CHUN-C S S REPRESENTATIVE Primary Care Provider Encounter Details Date Type Department Care Team (Late st Contact Info) Description 09/11/2023 Orders Only [facility] [address] [place] [id number] Ref Prov, [place] [address] Social History Tobacco Use Types Packs/Day Years [...] on filedocumented in this encounter Care Teams Take Out Waiter Relationship Specialty Start Date End Date Essie Ryan, FONDANT MACHINE OPERATOR-C S S REPRESENTATIVE PCP - General Nurse Practitioner 10/03/18 documented as of this encounter
--- OUTSIDE RECORDS SUMMARY | 2024-11-28 10:39 | XMS_ITS | Clinical Summary ---
Author Organization [facility] Address [address] [place] [address] Care Team Providers Care Manager Business Systems Name Role Phone Essie Ryan [employer] Unavailable [phone] Essie Ryan NP Unavailable [phone] Yuriy Martins MD Primary Care Provider [phone] Allergies Active Allergy Reactions Criticality Noted Date [...] Encounters Date Type Department Care Team Description 11/25/2024 Clinisync Result Encounter [facility] External Department Unsolicited Provider, Generic External Data 11/01/2024 Clinisync Result Encounter [facility] External Department Unsolicited Provider, Generic External Data 10/09/2024 Clinisync Result Encounter [facility] External Department Unsolicited Essie Ryan NP 10/09/2024 Clinisync Result Encounter [facility] External Department Unsolicited Provider, Generic External Data 10/04/2024 Clinisync Result Encounter [facility]OM[facility] External Department Unsolicited Essie Ryan NP 09/30/2024 1:20 PM EDT Office Visit [facility] [address] [place] [address] Essie Ryan NP Dizziness and giddiness (Primary Dx); NIRMALA (obstructive sleep apnea); Morbid (severe) obesity due to excess calories (CMS/HCC); Bipolar disorder, unspecified (CMS/HCC); Mixed hyperlipidemia (CMS/HCC); Anxiety; Chronic right hip pain; Gastroesophageal reflux disease, unspecified whether esophagitis present; Left hip pain 09/30/2024 Bamboo flowsheet [facility] [address] [place] [address] Essie Ryan NP 09/23/2024 Travel 09/17/2024 Refill [facility] [address] [place] [address] Essie Ryan NP Chronic right hip pain (Primary Dx) 09/17/2024 Telephone [facility] [address] [place] [address] Essie Ryan NP 09/16/2024 Telephone [facility] [address] [place] [address] Essie Ryan NP 09/09/2024 Clinisync Result Encounter [facility]OMS External Department Unsolicited Provider, Generic External Data 09/09/2024 Clinisync Result Encounter [facility]OM[facility] External Department Unsolicited Provider, Generic External Data 08/29/2024 Clinisync Result Encounter [facility]OMS External Department Unsolicited Essie Ryan NP 08/28/2024 1:20 PM EST Office Visit [facility] [address] [place] [address] Essie Ryan NP Anxiety (Primary Dx); Morbid (severe) obesity due to excess calories (CMS/HCC); Mixed hyperlipidemia (CMS/HCC) ; Body mass index (BMI) 38.0-38.9, adult; Bipolar disorder, unspecified (CMS/HCC) ; Pulmonary hypertension, unspecified (CMS/HCC); Crohn's disease of both small and large intestine without complications (CMS/HCC); NIRMALA (obstructive sleep apnea); PAH (pulmonary artery hypertension) (CMS/[facility]); Gastro-esophageal reflux disease without esophagitis; S/P total right hip arthroplasty; Encounter for screening mammogram for malignant neoplasm of breast; Gastroesophageal reflux disease, unspecified whether esophagitis present; Dizziness and giddiness 08/28/2024 Bamboo flowsheet [facility] [address] [place] [address] Essie Ryan NP 08/28/2024 Travel from Last [...] week 08/28/2024 How often do you attend caodaism or lutheran serv ices? Never 08/28/2024 Do you belong [...] Recorded Patient Health Questionnaire-2 Score 0 11/08/2023 [facility] - Occupational [...] any time in the past 12 m [facility], were you homeless or living in [...] Visit [facility] [address] [place] [address] Essie Ryan NP [address] [place] [address] Health Maintenance Due Date Last Done Comments Pap Smear 1997 HPV/Cotest 2006 Mammogram 10/04/2025 10/04/2024, 07/28, 08/04/2022, Additional history exists Influenza Vaccine Discontinued 05/03/2012 Colonoscopy Discontinued 12/15/2020 Colorectal Cancer Screening Discontinued CT Colonography Discontinued Cervical Cancer Screening Discontinued FIT-DNA Discontinued FIT Discontinued FOBT Discontinued Sigmoidoscopy Discontinued Procedures Procedure Name Priority Date/Time Associated Diagnosis Comments [facility] APTT Routine 11/25/2024 1:45 PM EDT [facility] PROTHROMBIN TIME INR W/O COUM Routine 11/25/2024 1:45 PM EDT ALL BASIC METABOLIC PANEL Routine 11/25/2024 1:45 PM EDT ALL CBC WITH AUTO DIFF Routine 1:45 PM EDT CA ECHO DOPPLER COMPLETE 11/01/2024 5:58 PM [...] AM EST [facility] CMP (CMP) (FOR REMOTE [facility] USE) Routine 08/29/2024 7:31 AM EST METRO IRON AND TIBC Routine 08/29/2024 7 :31 AM EST ALL CBC WITH AUTO DIFF Routine 7:31 AM EST from Last 3 Months Results * [facility] PROTHROMBIN TIME INR W/O COUM (11/25/2024 1:45 PM EDT) Only the most recent of2 resultswithin the time period is included. PROTHROMBIN TIME 9.9 9.0 - 11.6 sec TBH TBH INR 0.93 TBH Comment: DESIRED INR: 2.0-3.0 CONDITIONS NOT LISTED BELOW 2.5-3.5 FOR PROSTHETIC HEART VALVE REPLACEMENT 2.5-3.5 RECURRENT THROMBOSIS 11/25/2024 1:45 PM EDT 11/25/2024 1:48 PM EDT Narrative CLINISYNC - 11/25/2024 2:13 PM EDT us Generic External Data Provider [facility] * [facility] APTT (11/25/2024 1:45 PM EDT) Only the most recent of2 resultswithin the time period is included. PARTIAL THROMBOPLASTIN TIME 24.5 22.3 - 36.2 sec TBH 11/25/2024 1:45 PM EDT 11/25/2024 1:48 PM EDT Narrative CLINISYNC - 11/25/2024 2:13 PM EDT us Generic External Data Provider MUNAJEFFORALIA Chandler amaury Result [facility] * (ABNORMAL) ALL CBC WITH AUTO DIFF (11/25/2024 1:45 PM EDT) Only the most recent of3 resultswithin the time period is included. TB WBC 7.6 4.0 - 11.0 10 3/uL TBH TBH RBC 4.34 4.20 - 5.40 10 6/uL TBH TBH HGB 12.4 12.0 - 16.0 g/dL TBH TBH HCT 38.2 36.0 - 48.0 % TBH TBH MCV 88.0 81.0 - 99.0 fL TBH TBH MCH 28.6 26.7 - 34.0 pg TBH TBH MCHC 32.5 29.9 - 35.2 g/dL TBH TBH RDW 13.1 11.0 - 15.0 % TBH TBH PLT 276 150 - 450 10 3/uL TBH TBH MPV 10.4 9.5 - 13.5 fL TBH NEUTROPHILS PERCENT AUTO 46.1 43.0 - 75.0 % TBH LYMPHOCYTES PERCENT AUTO 36.2 20.5 - 60.0 % TBH MONOCYTES PERCENT AUTO 8.5 1.7 - 12.0 % TBH TBH EO % 7.7(H) 0.9 - 7.0 % TBH BASOPHILS PERCENT AUTO 1.2 0.2 - 2.0 % TBH IMMATURE GRANULOCYTES PCT AUTO 0.3 0.0 - 0.5 % TBH NEUTROPHILS ABSOLUTE AUTO 3.5 1.4 - 6.5 10 3/uL TBH LYMPHOCYTES ABSOLUTE AUTO 2.7 1.2 - 3.8 10 3/uL TBH MONOCYTES ABSOLUTE AUTO 0.6 0.3 - 0.8 10 3/uL TBH TBH EO # 0.6 0.0 - 0.7 10 3/uL TBH BASOPHILS ABSOLUTE AUTO 0.1 0.0 - 0.1 10 3/uL TBH IMMATURE GRANULOCYTES ABS AUTO 0.02 0.00 - 0.03 10 3/uL TBH 11/25/2024 1:45 PM EDT 11/25/2024 1:48 PM EDT Narrative CLINISYNC - 11/25/2024 1:54 PM EDT Generic External Data Provider CLINISYNC F inal Result Performing Organization Address City/[facility] Co de Phone Number CLINISYNC TBH * (ABNORMAL) ALL BASIC METABOLIC PANEL (11/25/2024 1:45 PM EDT) Only the most recent of2 resultswithin the time period is included. SODIUM 141 136 - 145 mmol/L TBH POTASSIUM 4.0 3.5 - 5.1 mmol/L TBH CHLORIDE 105 98 - 107 mmol/L TBH CARBON DIOXIDE 29.9 21.0 - 32.0 mmol/L TBH ANION GAP 10.1 TBH GLUCOSE 129(H) 74 - 106 mg/dL TBH BLOOD UREA NITROGEN 14.0 7.0 - 18.0 mg/dL TBH CREATININE 0.75 0.55 - 1.02 mg/dL TBH TBH EGFR-AF TONGAN >60 >=60 mL/min/1.7 3m 2 TBH TBH EGFR-NON AF TONGAN >60 >=60 mL/min/1.7 3m 2 TBH BUN CREATININE RATIO 18.7 TBH CALCIUM 9.3 8.5 - 10.1 mg/dL TBH 11/25/2024 1:45 PM EDT 11/25/2024 1:48 PM EDT Narrative CLINISYNC - 11/25/2024 2:08 PM EDT Generic External Data Provider CLINISYNC F inal Result Performing Organization Address City/[facility]/ZIP Co de Phone Number CLINISYNC TBH * CA ECHO DOPPLER COMPLETE (11/01/2024 5:58 PM EDT) Anatomical Region Laterality Modality Other 11/01/2024 5:58 PM EDT Narrative 11/01/2024 5:59 PM EDT The [address] [address] Cardiology Report Signed Patient: STACEY FIGUEROA MR#: [id number] : 1975 Acct:[id number] Age/Sex: 49 / F ADM Date: 11/01/24 Loc: CARD Attending Dr: CAN VALERA APRN Ordering Physician: CAN VALERA APRN Date of Service: 11/01/24 Procedure(s): CA echo doppler complete Accession Number(s): [id number] cc: Essie Ryan [employer]; CAN VALERA APRN Patient Name: STACEY FIGUEROA MR#: [id number] : 1975 Exam Date: 11/01/2024 Ordering Doctor: CAN VALERA CNP ECHOCARDIOGRAM REPORT PROCEDURE: CA ECHO DOPPLER COMPLETE [...] M.D. Signed By: 11/01/241758 DD/ 57 TD/TT: Pin Inserter: Procedure Note Radiology, Radiologist, - 11/01/2024 [place] [address] Cardiology Report Signed Patient: STACEY FIGUEROA AMR#: [id number] : 1975Acct:[id number] Age/Sex: 49 / FADM Date: 11/01/24 Loc: CARD Attending Dr: CAN VALERA APRN Ordering Physician: CAN VALERA APRN Date of Service: 11/01/24 Procedure(s): CA echo doppler complete Accession Number(s): [id number] cc: Essie Ryan [employer]; CAN VALERA APRN Patient Name: STACEY FIGUEROA MR#: [id number] : 1975 Exam Date: 11/01/2024 Ordering Doctor: CAN VALERA CNP ECHOCARDIOGRAM REPORT PROCEDURE: CA ECHO DOPPLER COMPLETE [...] Draper M.D. Signed By:11/01/241758 DD/ 57 TD/TT: Pin Inserter: Generic External Data Provider CLINISYNC IMAGING Final Result * XR HIP LT MIN 2V (10/09/2024 3:19 PM EDT) Anatomical Region Laterality Modality Other 10/09/2024 3:19 PM EDT Narrative 10/09/2024 3:22 [place] [address] XRay Report Signed Patient: STACEY FIGUEROA MR#: [id number] : 1975 Acct:[id number] Age/Sex: 49 / F ADM Date: 10/09/24 Loc: [facility] Attending Dr: Essie Ryan NP Ordering Physician: Essie Ryan NP Date of Service: 10/09/24 Procedure(s): XR hip LT min 2V Accession Number(s): [id number] cc: Essie Ryan NP [place] [address] Patient Name: STACEY FIGUEROA MRN: [id number] date: 1975 Sex: F Assigned Patient Location: [facility] Current Patient Location: [facility] Accession/Order Number: [id number] Exam Date: 10/09/2024 15:18 Report Date: 10/09/2024 [...] Lowe Jr., D.O.10/09/2024 3:19 PM Dictation Location: [place] [address] Electronically authenticated by: [id number] Y Date: 10/09/2024 15:19 Dictated By: Robby Lowe M.D. Signed By: 10/09/24 1522 DD/ 151 TD/TT: Pin Inserter: Procedure Note Radiology, Radiologist, - 10/09/2024 [place] [address] XRay Report Signed Patient: STACEY FIGUEROA AMR#: [id number] : 1975Acct:[id number] Age/Sex: 49 / FADM Date: 10/09/24 Loc: RAD Attending Dr: Essie Ryan NP Ordering Physician: Essie Ryan NP Date of Service: 10/09/24 Procedure(s): XR hip LT min 2V Accession Number(s): [id number] cc: Essie Ryna NP [place] [address] Patient Name: STACEY FIGUEROA MRN: [facility]:[id number] date: 1975 Sex: F Assigned Patient Location: [facility] Current Patient Location: [facility] Accession/Order Number: [id number] Exam Date: 10/09/2024 15:18 Report Date: 10/09/2024 [...] Lowe Jr., D.O.10/09/2024 3:19 PM Dictation Location: [place] [address] Electronically authenticated by: [id number] Y Date: 5:19 Dictated By: oRbby Lowe M.D. Signed By:10/09/24 1522 DD/ 151 TD/TT: Pin Inserter: Essie Ryan NP CLINISYNC IMAGING Final Result * MM TOMOSYNTHESIS SCREENING BI (10/04/2024 12:29 PM EDT) Anatomical Region Laterality Modality Other 10/04/2024 12:2 9 PM EDT Narrative 10/04/2024 12:30 PM EDT The [address] [address] Mammography Report Signed Patient: STACEY FIGUEROA MR#: [id number] : 1975 Acct:[id number] Age/Sex: 49 / F ADM Date: 10/04/24 Loc: MAMMO Attending Dr: Essie Ryan NP Ordering Physician: Essie Ryan NP Results: Date of Service: 10/04/24 Follow Up: Procedure(s): MM tomosynthesis screening BI Accession Number(s): [id number] cc: Essie Ryan NP Patient Name: STACEY FIGUEROA MR#: [id number] : 1975 Exam Date: 10/04/2024 Ordering Doctor: NIURKA Ryan CNP RADIOLOGY REPORT [...] at age 56. LOCATION: [facility] BREAST COMPOSITION: There are scattered areas of [...] Signed By: 10/04/24 1230 DD/ 1229 TD/TT: Pin Inserter: Procedure Note Radiology, Radiologist, MD - 10/04/2024 [place] [address] Mammography Report Signed Patient: STACEY FIGUEROA AMR#: [id number] : 1975Acct:[id number] Age/Sex: 49 / FADM Date: 10/04/24 Loc: MAMMO Attending Dr: Essie Ryan NP Ordering Physician: Essie Ryan NPResults: Date of Service: 10/04/24Follow Up: Procedure(s): MM tomosynthesis screening BI Accession Number(s): [id number] cc: Essie Ryan NP Patient Name: STACEY FIGUEROA MR#: [id number] : 1975 Exam Date: 10/04/2024 Ordering Doctor: NIURKA Ryan GYN PHYSICIAN RADIOLOGY REPORT PROCEDURE: MM TOMOSYNTHESIS SCREENING BI COMPARISON: MM TOMOSYNTHESIS SCREENING BI, 08/16/2023. MG MAMM [id number] GRACIE CAD, 02/09/2022. MG MAMM SCREEN 3D [...] at age 56. LOCATION: [facility] BREAST COMPOSITION: There are scattered areas of [...] D.O. Signed By:10/04/24 1230 DD/ 1229 TD/TT: Pin Inserter: us Essie Ryan NP CLIN[facility]NC IMAGING Final Result * XR ABDOMEN 1V (09/09/2024 12:29 PM EDT) Anatomical Region Laterality Modality Other 09/09/2024 12:2 9 PM EDT Narrative 09/09/2024 12:31 [place] [address] XRay Report Signed Patient: STACEY FIGUEROA MR#: [id number] : 1975 Acct:[id number] Age/Sex: 49 / F ADM Date: 09/09/24 Loc: Attending Dr: Leslie ONEILL Ordering Physician: Leslie Jung Date of Service: 09/09/24 Procedure(s): XR abdomen 1V Accession Number(s): [id number] cc: Essie Ryan NP; Leslie uJng [place] [id number] Patient Name: STACEY FIGUEROA MRN: [id number] date: 1975 Sex: F Assigned Patient Location: [place] Current Patient Location: [place] Accession/Order Number: [id number] Exam Date: 09/09/2024 12:27 Report Date: 09/09/2024 [...] Lowe Jr., D.O.09/09/2024 12:29 PM Dictation Location: [place] [address] Electronically authenticated by: [id number] Y Date: 09/09/2024 12:29 Dictated By: Robby Lowe M.D. Signed By: 09/09/24 1231 DD/ 1229 TD/TT: Pin Inserter: Procedure Note Radiology, Radiologist, MD - 09/09/2024 [place] [address] XRay Report Signed Patient: STACEY FIGUEROA AMR#: [id number] : 1975Acct:[id number] Age/Sex: 49 / FADM Date: 09/09/24 Loc: Attending Dr: Leslie ONEILL Ordering Physician: Leslie Jung Date of Service: 09/09/24 Procedure(s): XR abdomen 1V Accession Number(s): [id number] cc: Essie Ryan [employer]; Leslie Jung The [place] [id number] Patient Name: STACEY FIGUEROA MRN: [id number] date: 1975 Sex: F Assigned Patient Location: [place] Current Patient Location: [place] Accession/Order Number: [id number] Exam Date: 09/09/2024 12:27 Report Date: 09/09/2024 [...] IMPRESSION: BILATERAL NEPHROLITHIASIS. Impression dictated by: Robby Loew Jr., D.O.09/09/2024 12:29 PM Dictation Location: [place] [address] Electronically authenticated by: [id number] Y Date: 2:29 Dictated By: Robby Lowe M.D. Signed By:09/09/24 1231 DD/ 1229 TD/TT: Pin Inserter: us Generic External Data Provider CLINISYNC IMAGING Final Result * US RENAL BI (09/09/2024 11:28 AM EDT) Anatomical Region Laterality Modality Other 09/09/2024 11:2 8 AM EDT Narrative 09/09/2024 11:31 [place] [address] Ultrasound Report Signed Patient: STACEY FIGUEROA MR#: [id number] : 1975 Acct:[id number] Age/Sex: 49 / F ADM Date: 09/09/24 Loc: US Attending Dr: Leslie ONEILL Ordering Physician: Leslie Jung Date of Service: 09/09/24 Procedure(s): US renal BI Accession Number(s): [id number] cc: Essie Ryan [employer]; Leslie Jung [place] [id number] Patient Name: STACEY FIGUEROA MRN: [id number] date: 1975 Sex: F Assigned Patient Location: US Current Patient Location: US Accession/Order Number: [id number] Exam Date: 09/09/2024 11:27 Report Date: 09/09/2024 [...] Lowe Jr., D.O.09/09/2024 11:28 AM Dictation Location: [place] [address] Electronically authenticated by: [id number] Y Date: 09/09/2024 11:28 Dictated By: Robby Lowe M.D. Signed By: 09/09/24 1131 DD/ 1128 TD/TT: Pin Inserter: Procedure Note Radiology, Radiologist, MD - 09/09/2024 [place] [address] Ultrasound Report Signed Patient: STACEY FIGUEROA AMR#: [id number] : 1975Acct:[id number] Age/Sex: 49 / FADM Date: 09/09/24 Loc: US Attending Dr: Leslie ONEILL Ordering Physician: Leslie Jung Date of Service: 09/09/24 Procedure(s): US renal BI Accession Number(s): [id number] cc: Essie Ryan [employer]; Leslie Jung The [place] [id number] Patient Name: STACEY FIGUEROA MRN: [id number] date: 1975 Sex: F Assigned Patient Location: US Current Patient Location: US Accession/Order Number: [id number] Exam Date: 09/09/2024 11:27 Report Date: 09/09/2024 [...] Lowe Jr., D.O.09/09/2024 11:28 AM Dictation Location: [place] [address] Electronically authenticated by: [id number] Y Date: 1:28 Dictated By: Robby Lowe M.D. Signed By:09/09/24 1131 DD/ 1128 TD/TT: Pin Inserter: us Generic External Data Provider CLIN[facility]NC IMAGING Final Result * TRANSFERRIN (08/29/2024 7:31 AM EST) TRANSFERRIN 278 192 - 364 mg/dL TBH Comment: Performed at: - [facility] [place] [id number] Tribunal Member: Avni Schmid PhD, Phone: [phone] 08/29/2024 7:31 AM EST 08/29/2024 7:32 AM EST Narrative CLINISYNC - 08/30/2024 5:07 AM EST us Essie Ryan [employer] LAB BLOOD ORDERABLES Final Resu lt [facility] * [facility] IRON AND TIBC (08/29/2024 7:31 AM EST) TBH IRON 55.0 50.0 - 170.0 ug/dL TBH TBH TOTAL IRON BINDING CAPACITY 326.0 250.0 - 450.0 ug/dL TBH TBH PERCENT IRON SATURATION 16.9 % TBH 08/29/2024 7:31 AM EST 08/29/2024 7:32 AM EST Narrative CLINISYNC - 08/29/2024 8:25 AM EST us Essie Rolonaishwarya [employer] CLINISYNC Final Result CLINISYNC TBH * CCF FERRITIN (08/29/2024 7:31 AM EST) FERRITIN 91.0 8.0 - 252.0 ng/mL TBH 08/29/2024 7:31 AM EST 08/29/2024 7:32 AM EST Narrative CLINISYNC - 08/29/2024 10:21 AM EST Essie Ryan [employer] CLINISYNC Final Result CLINISYNC TBH * (ABNORMAL) CCF CMP (CMP) (FOR REMOTE [facility] USE) (08/29/2024 7:31 AM EST) SODIUM 140 136 - 145 mmol/L TBH POTASSIUM 4.2 3.5 - 5.1 mmol/L TBH CHLORIDE 105 98 - 107 mmol/L TBH CARBON DIOXIDE 26.7 21.0 - 32.0 mmol/L TBH ANION GAP 12.5 TBH GLUCOSE 98 74 - 106 mg/dL TBH BLOOD UREA NITROGEN 13.0 7.0 - 18.0 mg/dL TBH CREATININE 0.86 0.55 - 1.02 mg/dL TBH TBH EGFR-AF TONGAN >60 >=60 mL/min/1. 73m 2 TBH TBH EGFR-NON AF TONGAN >60 >=60 mL/min/1. 73m 2 TBH BUN [...] - 08/29/2024 8:31 AM EST Essie Ryan [employer] CLINISYNC Final Result Performing Organization Address City/[facility]/ZIP Co de Phone Number CLINISYNC TB * (ABNORMAL) ALL LIPID PROFILE (FASTING) (08/29/2024 7:31 AM EST) TRIGLYCERIDES 117 <=150 mg/dL TBH CHOLESTEROL 214(H) <=200 mg/dL TBH HDL CHOLESTEROL 56 40 - 60 mg/dL TB Comment: > or =60 mg/dl - LOW CARDIOVASCULAR RISK <40 mg/dl - HIGH CARDIOVASCULAR RISK LDL CHOLESTEROL CALCULATED 135.0 mg/dL TB Comment: <100 mg/dl OPTIMAL 100-129 mg/dl NEAR OR ABOVE OPTIMAL 130-159 mg/dl BORDERLINE HIGH 160-189 mg/dl HIGH >190 mg/dl VERY HIGH VLDL CHOLESTEROL 23.4 mg/dL TB CHOL HDL RATIO 3.8 TBH Comment: 3.3 - 4.4 LOW RISK 4.4 - 7.1 AVERAGE RISK 7.1 - 11.0 MODERATE RISK >11.0 HIGH RISK 08/29/2024 7:31 AM EST 08/29/2024 7:32 AM EST Narrative CLINISYNC - 08/29/2024 8:31 AM EST Essie Ryan NP CLINISYNC Final Result CLINISYNC [facility] from Last 3 Months Insurance [facility] MEDICAID SAMS [employer] Care Teams Manager Business Systems Relationship Specialty Start Date End Date Essie Ryan NP [address] [place] [id number] PCP - [facility] 12/25/23 Yuriy Martins MD [address] [place] [id number] PCP - General Family Medicine 05/29/24 Essie Ryan NP [address] [place] [address] Nurse Practitioner Family Medicine 08/17/23
--- OUTSIDE RECORDS SUMMARY | 2024-11-28 10:39 | XMS_ITS | Encounter Summary ---
Author Organization [facility] Address [address] [place] [address] Care Team Providers Care Secretary Of Police Name Role Phone Essie Ryan LAW INSTRUCTOR Unavailable [phone] Essie Ryan NP Unavailable [phone] Yuriy Martins MD Primary Care Provider [phone] Encounter Details Date Type Department Care Team (Late st Contact Info) Description 11/25/2024 Clinisync Result Encounter [facility] External [...] week 08/28/2024 How often do you attend mormonism or samaritan serv ices? Never 08/28/2024 Do you belong to any clubs o r organizations such as mormonism groups, unions, fraternal or athletic groups, or [...] Recorded Patient Health Questionnaire-2 Score 0 11/08/2023 [facility] of Occupat ional Health - Occupational Stress [...] in a fdc (including now)? No 06/14/2023 Housing Stability Vital Sign Answer Williams e Recorded In the last 12 months, was t here a time when you were not able to pay the mortgage or rent on time? No 08/28/2024 In the past 12 months, how m any times have you moved where you were living? 0 08/28/2024 At any time in the past 12 m [facility], were you homeless or living in a fdc (including now)? No 08/28/2024 Comments Unknown Sex and Gender Information Value Date Recorded Sex Assigned at Not on file Legal Sex Female 7:01 PM EDT Gender Identity Not on file Sexual Orientation Not on file documented as of this encounter Plan of Treatment Upcoming Encounters Date Type Department Care Team (Late st Contact Info) Description 01/01/2025 1:00 PM EDT Office Visit [facility] [address] [place] [address] Essie Ryan NP [address] [place] [address] documented as of this encounter Procedures Procedure Name Priority Date/Time Associated Diagnosis Comments SRMCOH PROTHROMBIN TIME INR W/O COUM Routine 11/25/2024 1:45 PM EDT [facility] APTT Routine 11/25/2024 1:45 PM EDT ALL CBC WITH AUTO DIFF Routine 11/25/2024 1:45 PM EDT ALL BASIC METABOLIC PANEL Routine 11/25/2024 1:45 PM EDT documented in this encounter Results * [facility]CF APTT (11/25/2024 1:45 PM EDT) PARTIAL THROMBOPLASTIN TIME 24.5 22.3 - 36.2 sec TBH 11/25/2024 1:45 PM EDT 11/25/2024 1:48 PM EDT Narrative MUNAISYORALIA - 11/25/2024 2:13 PM EDT Generic External Data Provider MORALES F amaury Result Performing Organization Address [facility]/ZIP Co de Phone Number [facility] * SRMCO PROTHROMBIN TIME INR W/O COUM (11/25/2024 1:45 PM EDT) PROTHROMBIN TIME 9.9 9.0 - 11.6 sec TBH TBH INR 0.93 TBH Comment: DESIRED INR: 2.0-3.0 CONDITIONS NOT LISTED BELOW 2.5-3.5 FOR PROSTHETIC HEART VALVE REPLACEMENT 2.5-3.5 RECURRENT THROMBOSIS 11/25/2024 1:45 PM EDT 11/25/2024 1:48 PM EDT Narrative CLINISYNC - 11/25/2024 2:13 PM EDT Generic External Data Provider CLINISYNC F inal Result Performing Organization Address City/[facility]/ZIP Co de Phone Number [facility] * (ABNORMAL) ALL BASIC METABOLIC PANEL (11/25/2024 1:45 PM EDT) SODIUM 141 136 - 145 mmol/L TBH POTASSIUM 4.0 3.5 - 5.1 mmol/L TBH CHLORIDE 105 98 - 107 mmol/L TBH CARBON DIOXIDE 29.9 21.0 - 32.0 mmol/L TBH ANION GAP 10.1 TBH GLUCOSE 129(H) 74 - 106 mg/dL TBH BLOOD UREA NITROGEN 14.0 7.0 - 18.0 mg/dL TBH CREATININE 0.75 0.55 - 1.02 mg/dL TBH TBH EGFR-AF DJIBOUTIAN >60 >=60 mL/min/1.7 3m 2 TBH TBH EGFR-NON AF DJIBOUTIAN >60 >=60 mL/min/1.7 3m 2 TBH BUN CREATININE RATIO 18.7 TBH CALCIUM 9.3 8.5 - 10.1 mg/dL TBH 11/25/2024 1:45 PM EDT 11/25/2024 1:48 PM EDT Narrative CLINISYNC - 11/25/2024 2:08 PM EDT us Generic External Data Provider CLINISYNC F inal Result [facility] * (ABNORMAL) ALL CBC WITH AUTO DIFF (11/25/2024 1:45 PM EDT) TB WBC 7.6 4.0 - 11.0 10 3/uL TBH TB RBC 4.34 4.20 - 5.40 10 6/uL TBH TB HGB 12.4 12.0 - 16.0 g/dL TB TB HCT 38.2 36.0 - 48.0 % TBH TB MCV 88.0 81.0 - 99.0 fL TB TB MCH 28.6 26.7 - 34.0 pg TBH TB MCHC 32.5 29.9 - 35.2 g/dL TB TB RDW 13.1 11.0 - 15.0 % TBH [...] Narrative CLINISYNC - 11/25/2024 1:54 PM EDT us Generic External Data Provider CLINISYNC F inal Result [facility]NC [facility] documented in this encounter Visit Diagnoses Not on filedocumented in this encounter Care Teams Secretary Of Police Relationship Specialty Start Date End Date Essie Ryan NP [address] [place] [address] PCP - [facility] 12/25/23 Yuriy Martins MD [address] [place] [address] PCP - General Family Medicine 05/29/24 Essie Ryan NP [address] [place] [address] Nurse Practitioner Family Medicine 08/17/23 documented as of this encounter
--- OUTSIDE RECORDS SUMMARY | 2024-11-28 10:39 | XMS_ITS | Encounter Summary ---
Author Organization [facility] tem Address [id number] [address] [place] [address] Care Team Providers Care Alumni Relations Coordinator Name Role Phone Essie Ryan APRN-[facility] Primary Care Provider Reason for Referral * Misc (Routine) - Pending Review Specialty Diagnoses / Procedures Referred By Contac t Referred To Contact Diagnoses NIRMALA (obstructive sleep apnea) Procedures Polysomnography 4 or more parameters with PAP titration Trinh Eduardo MD [address] [place] [address] [address] [place] [address] Phone: tel: fax: Referral ID Status Reason Start Date Expiration Date V isits Requested Visits Authorized [id number] Pending Review 10/30/2024 10/30/2025 1 1 Encounter Details Date Type Department Care Team (Late st Contact Info) Description 10/30/2024 Orders Only [facility], A Department of [address] [place] [address] Trinh Eduardo MD [address] [place] [address] [address] [place] [address] NIRMALA (obstructive sleep apnea) (Primary [...] (pediatric) documented in this encounter Care Teams Alumni Relations Coordinator Relationship Specialty Start Date End Date Essie Ryan, COIL TAPER-SENIOR DATABASE ADMINISTRATOR PCP - General Nurse Practitioner 10/03/18 documented as of this encounter
--- OUTSIDE RECORDS SUMMARY | 2024-11-28 10:39 | XMS_ITS | Encounter Summary ---
Author Organization [facility] Address [id number] [address] [place] [address] Care Team Providers Care Industrial Chemist Name Role Phone CharliEssie ha Magdaleno ANATOMICAL EMBALMER-CAGE TENDER Primary Care Provider Encounter Details Date Type Department Care Team (Late st Contact Info) Description 03/12/2024 Orders Only [facility] [address] [place] [address] External, Scanning Provider Social History [...] on filedocumented in this encounter Care Teams Industrial Chemist Relationship Specialty Start Date End Date Essie Ryan, ANATOMICAL EMBALMER-CAGE TENDER PCP - General Nurse Practitioner 10/03/18 documented as of this encounter
--- OUTSIDE RECORDS SUMMARY | 2024-11-28 10:39 | XMS_ITS | Encounter Summary ---
Author Organization [facility] Address [address] [place] [address] Care Team Providers Care Bobj Developer Name Role Phone Yuriy Martins MD Primary Care Provider [phone] Essie Ryan GLASS CUTTING MACHINE FEEDER Unavailable [phone] Essie Ryan NP Unavailable [phone] Yuriy Martins MD Primary Care Provider [phone] Encounter Details Date Type Department Care Team (Late st Contact Info) Description 08/17/2023 Clinisync Result Encounter [facility] External Department Unsolicited Essie Ryan, GLASS CUTTING MACHINE FEEDER [address] [place] [address] Social History Tobacco Use Types Packs/Day Years [...] declined 06/14/2023 How often do you attend oriental orthodox or gnosticism serv ices? Patient declined 06/14/2023 Do you belong to any clubs o r organizations such as oriental orthodox groups, unions, fraSadra Medical or athletic groups, or school groups? Patient [...] Questionnaire-2 Score 2 07/13/2023 [facility] - Occupational Stress Questionnaire Answer Date Recorded [...] place to sleep or slept in a intermediate (including now)? No 06/14/2023 Comments Unknown Sex [...] EDT Office Visit [facility] [address] [place] [address] Essie Ryan NP [address] [place] [address] documented as of this encounter Procedures Procedure Name Priority Date/Time Associated Diagnosis Comments MM TOMOSYNTHESIS SCREENING BI 08/17/2023 7:38 AM EST documented in this encounter Results * MM TOMOSYNTHESIS SCREENING BI (08/17/2023 7:38 AM EST) Anatomical Region Laterality Modality Other 08/17/2023 7:38 AM EST Narrative 08/17/2023 7:39 AM EST The [address] [address] Mammography Report Signed Patient: STACEY FIGUEROA MR#: [id number] : 1975 Acct:[id number] Age/Sex: 48 / F ADM Date: 08/16/23 Loc: MAMMO Attending Dr: Essie Ryna NP Ordering Physician: Essie Ryan NP Results: Date of Service: 08/16/23 Follow Up: Procedure(s): MM tomosynthesis screening BI Accession Number(s): [id number] cc: Essie Ryan NP Patient Name: STACEY FIGUEROA MR#: [id number] : 1975 Exam Date: 08/16/2023 Ordering Doctor: [...] colon cancer at age 56. LOCATION: The [facility] BREAST COMPOSITION: Scattered areas fibroglandular density. [...] Signed By: 08/17/23 0739 DD/ 0738 TD/TT: Supervisor Of Operations: Procedure Note Radiology, Radiologist, - 08/17/2023 [place] [address] Mammography Report Signed Patient: STACEY FIGUEROA AMR#: [id number] : 1975Acct:[id number] Age/Sex: 48 / FADM Date: 08/16/23 Loc: MAMMO Attending Dr: Essie Ryan NP Ordering Physician: Essie Ryan NPResults: Date of Service: 08/16/23Follow Up: Procedure(s): MM tomosynthesis screening BI Accession Number(s): [id number] cc: Essie Ryan NP Patient Name: STACEY FIGUEROA MR#: [id number] : 1975 Exam Date: 08/16/2023 Ordering Doctor: NIURKA Ryan BRAKE MACHINE OPERATOR RADIOLOGY REPORT PROCEDURE: MM TOMOSYNTHESIS SCREENING BI [...] colon cancer at age 56. LOCATION: The [facility] BREAST COMPOSITION: Scattered areas fibroglandular density. [...] Gross M.D. Signed By:08/17/23 0739 DD/ TD/TT: Supervisor Of Operations: us Essie Ryan NP [facility] Final Result documented in this encounter Visit Diagnoses Not on filedocumented in this encounter Care Teams Bobj Developer Relationship Specialty Start Date End Date Yuriy Martins MD [address] [place] [address] PCP - General Family Medicine 08/17/23 04/09/24 Essie Ryan NP [address] [place] [address] PCP - [facility] 12/25/23 Yuriy Martins MD [address] [place] [address] PCP - General Family Medicine 05/29/24 Essie Ryan NP [address] [place] [address] Nurse Practitioner Family Medicine 08/17/23 documented as of this encounter
--- OUTSIDE RECORDS SUMMARY | 2024-11-28 10:39 | XMS_ITS | Encounter Summary ---
Author Organization [facility] Address [address] [place] [address] Care Team Providers Care Camp Nurse Name Role Phone Yuriy Martins MD Primary Care Provider [phone] Unallocated, [facility] Provider Primary Care Provi singh Yuriy Martins MD Primary Care Provider [phone] AicEssie ha LEAD LEVEL DESIGNER Unavailable Essie Ryan NP Unavailable [phone] Yuriy Martins MD Primary Care Provider [phone] Encounter Details Date Type Department Care Team [...] Visit [facility] [address] [place] [address] Essie Ryan NP [address] [place] [address] documented as of this encounter Procedures Procedure Name Priority Date/Time Associated Diagnosis Comments XR ABDOMEN 1V 05/25/2023 10:00 AM EST documented in this encounter Results * XR ABDOMEN 1V (05/25/2023 10:00 AM EST) Anatomical Region Laterality Modality Other 05/25/2023 10:0 0 AM EST Narrative 05/25/2023 10:00 AM EST [address] [address] XRay Report Signed Patient: STACEY FIGUEROA MR#: [id number] : 1975 Acct:[id number] Age/Sex: 47 / F ADM Date: 05/24/23 Loc: [facility] Attending Dr: Leslie ONEILL Ordering Physician: Leslie Dominguez Date of Service: 05/24/23 Procedure(s): XR abdomen 1V Accession Number(s): [id number] cc: Essie Ryan LEAD LEVEL DESIGNER; Leslie Dominguez [address] [address] Patient Name: STACEY FIGUEROA MRN: [id number] date: 1975 Sex: F Assigned Patient Location: [facility] Current Patient Location: Accession/Order Number: [id number] Exam Date: 05/24/2023 16:36 Report Date: 05/25/2023 [...] M.D. Signed By: 05/25/231001 DD/ 1000 TD/TT: Optical Brightener Maker Helper: Procedure Note Radiology, Radiologist, - 05/25/2023 [place] [address] XRay Report Signed Patient: STACEY FIGUEROA AMR#: [id number] : 1975Acct:[id number] Age/Sex: 47 / FADM Date: 05/24/23 Loc: [facility] Attending Dr: Leslie ONEILL Ordering Physician: Leslie Dominguez Date of Service: 05/24/23 Procedure(s): XR abdomen 1V Accession Number(s): [id number] cc: Essie Ryan LEAD LEVEL DESIGNER; Leslie Dominguez The [place] [id number] Patient Name: STACEY FIGUEROA MRN: [id number] date: 1975 Sex: F Assigned Patient Location: [facility] Current Patient Location: Accession/Order Number: [id number] Exam Date: 05/24/2023 16:36 Report Date: 05/25/2023 [...] Conroy M.D. Signed By:05/25/231001 DD/ 1000 TD/TT: Optical Brightener Maker Helper: us Generic External Data Provider [facility] Final Result documented in this encounter Visit Diagnoses Not on filedocumented in this encounter Care Teams Camp Nurse Relationship Specialty Start Date End Date Yuriy Martins MD PCP - General Cardiology 11/29/22 07/16/23 Unallocated, Noms MD Alex [address] [place] [address] PCP - General Family Medicine 07/17/23 08/16/23 Yuriy Martins MD [address] [place] [address] PCP - General Family Medicine 08/17/23 04/09/24 Essie Ryan NP [address] [place] [address] PCP - [facility] 12/25/23 Yuriy Martins MD [address] [place] [address] PCP - General Family Medicine 05/29/24 Essie Ryan, NETO [address] [place] [address] Nurse Practitioner Family Medicine 08/17/23 documented as of this encounter
--- OUTSIDE RECORDS SUMMARY | 2024-11-28 10:39 | XMS_ITS | Encounter Summary ---
Author Organization [facility] Address [address] [place], [place] [address] Care Team Providers Care Commodity Trader Name Role Phone CharliEssie ha Fely BAH Primary Care Provider Adán Torres DO Unavailable [phone] Dany ARDON MD, Alexis [place] Unavailable + Angel Delgado DO Unavailable [phone] Source Comments In the event this information is protected by the Federal Confidentiality of Alcohol and Drug AbusePatient Records regulations: The Federal rules restrict any use of the information to criminally investigate or prosecute any alcohol or drug abuse patient.[facility] Reason for Visit * Reason Comments new order Encounter Details Date Type Department Care Team (Late st Contact Info) Description 06/24/2024 Telephone Internal Medicine [place] [address] [place] [address] Yanni Spring MD [address] [place] [address] new order Social History Tobacco Use Types [...] is lower risk 9 03/15/2024 Data from: https://www.neighborhoodatlas.medicine.[facility]/. Last address used for calculation [address] [...] wet signature and mobilty dx code. Fax- [phone] documented in this encounter Plan of Treatment Not on file documented as of this encounter Visit Diagnoses Not on filedocumented in this encounter Care Teams Commodity Trader Relationship Specialty Start Date End Date Essie Ryan, FELT FINISHING SUPERVISOR PCP - General Family Medicine 07/22/16 Adán Torres DO Obstetrics 07/22/16 Alexis Saenz II, MD [address] [place] [address] Referring Orthopedics 12/13/21 [place] [address] [place] [address] Referring Orthopedics 03/08/24 documented as of this encounter
--- OUTSIDE RECORDS SUMMARY | 2024-11-28 10:40 | XMS_ITS | Encounter Summary ---
Author Organization [facility] Address [address] [place] [address] Care Team Providers Care Baker Pie Name Role Phone Yuriy Martins MD Primary Care Provider [phone] Essie Ryan HOSPITALIST NOCTURNIST PHYSICIAN Unavailable [phone] Essie Ryan HOSPITALIST NOCTURNIST PHYSICIAN Unavailable [phone] Yuriy Martins MD Primary Care Provider [phone] Encounter Details Date Type Department Care Team (Late st Contact Info) Description 01/01/2024 Orders Only [facility] [address] [place] [address] Angel Delgado MD [address] [place] [address] Social History Tobacco Use Types Packs/Day [...] declined 06/14/2023 How often do you attend yarsanism or restorationist serv ices? Patient declined 06/14/2023 Do you belong to any clubs o r organizations such as yarsanism groups, unions, fraternal or athletic groups, or [...] Recorded Patient Health Questionnaire-2 Score 0 11/08/2023 [facility] of Occupat ional Health - [...] Office Visit [facility] [address] [place] [address] Essie Ryan NP [address] [place] [address] documented as of this encounter Procedures Procedure [...] on filedocumented in this encounter Care Teams Baker Pie Relationship Specialty Start Date End Date Yuriy Martins MD [address] [place] [address] PCP - General Family Medicine 08/17/23 04/09/24 Essie Ryan NP [address] [place] [address] PCP - [facility] 12/25/23 Yuriy Martins MD [address] [place] [address] PCP - General Family Medicine 05/29/24 Essie Ryan, NETO [address] [place] [address] Nurse Practitioner Family Medicine 08/17/23 documented as of this encounter
--- OUTSIDE RECORDS SUMMARY | 2024-11-28 10:40 | XMS_ITS | Encounter Summary ---
Author Organization [facility] Address [address] [place], [place] [address] Care Team Providers Care Battery Repairer Name Role Phone CharliEssie ha Fely BAH Primary Care Provider [phone] Adán Torres DO Unavailable [phone] Dany ARDON MD, [facility] Unavailable + Angel Delgado DO Unavailable [phone] Source Comments In the event this information is protected by the Federal Confidentiality of Alcohol and Drug AbusePatient Records regulations: The Federal rules restrict any use of the information to criminally investigate or prosecute any alcohol or drug abuse patient.[facility] Encounter Details Date Type Department Care Team (Late st Contact Info) Description 09/17/2024 Get Medical Advice Orthopaedics [address] [place], [place] [address] Yanni Spring MD [address] [place] [address] Medicine Social History Tobacco Use Types Packs/Day Years Used Date Smoking Tobacco: Never Smokeless Tobacco: Never Alcohol Use Standard Drinks/Week Comments No 0 (1 standard drink = 0.6 oz pur e alcohol) [facility] Utilities Answer Date Recorded In the [...] time in the past 12 m [facility], were you homeless or living in a half-way (including now)? No 07/01/2024 Area Deprivation Index Answer Date Erik rded National Score (1-100), lower number is lower ri sk 93 03/15/2024 State Score (1-10), lower number is lower risk 9 03/15/2024 Data from: https://www.neighborhoodatlas.medicine.[facility].edu/. Last address used for calculation [...] filedocumented in this encounter Care Teams Battery Repairer Relationship Specialty Start Date End Date Essie Ryan CNP PCP - General Family Medicine 07/22/16 Adán Torres DO Obstetrics 07/22/16 Alexis Saenz II, MD [address] [place] [address] Referring Orthopedics 12/13/21 Angel Delgado DO [address] [place] [address] Referring Orthopedics 03/08/24 documented as of this encounter
--- OUTSIDE RECORDS SUMMARY | 2024-11-28 10:40 | XMS_ITS | Encounter Summary ---
Author Organization [facility] Address [address] [place] [address] Care Team Providers Care Infantry Operations Specialist Name Role Phone Yuriy Martins MD Primary Care Provider [phone] Essie Ryan VICE PRESIDENT CORPORATE COMMUNICATIONS Unavailable [phone] Essie Ryan VICE PRESIDENT CORPORATE COMMUNICATIONS Unavailable [phone] Yuriy Martins MD Primary Care Provider [phone] Encounter Details Date Type Department Care Team (Late st Contact Info) Description 02/29/2024 Abstract [facility] [address] [place] [address] Essie Ryan NP [address] [place] [address] Social History Tobacco Use Types Packs/Day Years [...] declined 06/14/2023 How often do you attend yazidi or baptism serv ices? Patient declined 06/14/2023 Do you belong to any clubs o r organizations such as yazidi groups, unions, fraternal or athletic groups, or [...] Recorded Patient Health Questionnaire-2 Score 0 11/08/2023 [facility] of Occupat ional Health - Occupational [...] place to sleep or slept in a half-way (including now)? No 06/14/2023 Comments Unknown Sex [...] Office Visit [facility] [address] [place] [address] Essie Ryan NP [address] [place] [address] documented as of this encounter Visit Diagnoses Not on filedocumented in this encounter Care Teams Infantry Operations Specialist Relationship Specialty Start Date End Date Yuriy Martins MD [address] [place] [address] PCP - General Family Medicine 08/17/23 04/09/24 Essie Ryan NP [address] [place] [address] PCP - [facility] 12/25/23 Yuriy Martins MD [address] [place] [address] PCP - General Family Medicine 05/29/24 Essie Ryan NP [address] [place] [address] Nurse Practitioner Family Medicine 08/17/23 documented as of this encounter
--- OUTSIDE RECORDS SUMMARY | 2024-11-28 10:40 | XMS_ITS | Encounter Summary ---
Author Organization [facility] Address [address] [place] [address] Care Team Providers Care Mushroom Farmer Name Role Phone Essie Ryan SCRUB TECH Unavailable [phone] Essie Ryan NP Unavailable [phone] Yuriy Martins MD Primary Care Provider [phone] Encounter Details Date Type Department Care Team [...] declined 06/14/2023 How often do you attend hindu or church serv ices? Patient declined 06/14/2023 Do you belong to any clubs o r organizations such as hindu groups, unions, fraternal or athletic groups, or [...] Patient Health Questionnaire-2 Score 0 11/08/2023 [facility] - Occupational [...] place to sleep or slept in a prison (including now)? No 06/14/2023 Comments Unknown Sex [...] Office Visit [facility] [address] [place] [address] Essie Ryan NP [address] [place] [address] documented as of this encounter Procedures Procedure [...] QTC Calculation(Bazett) : 447 ms Calculated P Crystal : 56 degrees Calculated R Crystal : 72 degrees Calculated T Crystal : 65 degrees NORMAL SINUS RHYTHM NORMAL ECG Confirmed by PETR LUCIANO MD ([id number]) on 2024 2:12:45 PM NAME : STACEY FIGUEROA PID : [id number] : 1975 Gender : Female Race : ORD : [id number] Procedure Date : Jun 05 2024 10:36:34 Edit Date : 2024 14:15:04 Diagnosis: NORMAL SINUS RHYTHM NORMAL ECG Confirmed by PETR LUCIANO MD ([id number]) on 2024 2:12:45 PM Test Reason : [...] QTC Calculation(Bazett) : 447 ms Calculated P Crystal : 56 degrees Calculated R Crystal : 72 degrees Calculated T Crystal : 65 degrees NORMAL SINUS RHYTHM NORMAL ECG Confirmed by PETR LUCIANO MD ([id number]) on 2024 2:12:45 PM NAME : STACEY FIGUEROA PID : [id number] : 1975 Gender : Female Race : ORD : [id number] Procedure Date : Jun 05 2024 10:36:34 Edit Date : 2024 14:15:04 Diagnosis: NORMAL SINUS RHYTHM NORMAL ECG Confirmed by PETR LUCIANO MD ([id number]) on 2024 2:12:45 PM Test Reason : PRE OP Location : 545 : [facility] Overread By : PETR LUCIANO MD Edited By : PETR LUCIANO MD Referred By : LOIS MCKEON Acquired by : VIDA, us Generic External Data Provider ECG ORDERABLES F inal Result [facility] documented in this encounter Visit Diagnoses Not on filedocumented in this encounter Care Teams Mushroom Farmer Relationship Specialty Start Date End Date Essie Ryan NP [address] [place] [address] PCP - [facility] 12/25/23 Yuriy Martins MD [address] [place] [place] [address] PCP - General Family Medicine 05/29/24 Essie Ryan NP [address] [place] [place] [address] Nurse Practitioner Family Medicine 08/17/23 documented as of this encounter
--- OUTSIDE RECORDS SUMMARY | 2024-11-28 10:40 | XMS_ITS | Encounter Summary ---
Author Organization [facility] Address [address] [place], [place] [address] Care Team Providers Care Manager Financial Systems Name Role Phone CharliEssie ha Fely BAH Primary Care Provider Adán Torres DO Unavailable [phone] Dany ARDON MD, [facility] Unavailable + Angel Delgado DO Unavailable [phone] Source Comments In the event this information is protected by the Federal Confidentiality of Alcohol and Drug AbusePatient Records regulations: The Federal rules restrict any use of the information to criminally investigate or prosecute any alcohol or drug abuse patient.[facility] Encounter Details Date Type Department Care Team (Late st Contact Info) Description 08/20/2024 Get Medical Advice Orthopaedics [address] [place], [place] [id number] Yanni Spring MD [address] [place] [address] Insurance Social History Tobacco Use Types Packs/Day Years Used Date Smoking Tobacco: Never Smokeless Tobacco: Never Alcohol Use Standard Drinks/Week Comments No 0 (1 standard drink = 0.6 oz pur e alcohol) [facility] Utilities Answer Date Recorded In the [...] any time in the past 12 m [facility], were you homeless or living in a assisted (including now)? No 07/01/2024 Area Deprivation Index Answer Date Erik rded National Score (1-100), lower number is lower ri sk 93 03/15/2024 State Score (1-10), lower number is lower risk 9 03/15/2024 Data from: https://www.neighborhoodatlas.medicine.[facility].edu/. Last address used for calculation [address] [...] on filedocumented in this encounter Care Teams Manager Financial Systems Relationship Specialty Start Date End Date Essie Ryan CNP PCP - General Family Medicine 07/22/16 Adán Torres DO Obstetrics 07/22/16 Alexis Saenz II, MD [address] [place] [address] Referring Orthopedics 12/13/21 Angel Delgado DO [address] [place] [address] Referring Orthopedics 03/08/24 documented as of this encounter
--- OUTSIDE RECORDS SUMMARY | 2024-11-28 10:40 | XMS_ITS | Encounter Summary ---
Author Organization [facility] Address [address] [place] [address] Care Team Providers Care Stove Carriage Operator Name Role Phone Yuriy Martins MD Primary Care Provider [phone] Essie Ryan EVENT EXECUTIVE Unavailable [phone] Essie Ryan EVENT EXECUTIVE Unavailable [phone] Yuriy Martins MD Primary Care Provider [phone] Encounter Details Date Type Department Care Team [...] declined 06/14/2023 How often do you attend anglican or mu-ism serv ices? Patient declined 06/14/2023 Do you belong to any clubs o r organizations such as anglican groups, unions, fraternal or athletic groups, or [...] Patient Health Questionnaire-2 Score 0 11/08/2023 [facility] - Occupational Stress Questionnaire Answer [...] Visit [facility] [address] [place] [place] [address] Essie Ryan NP [address] [place] [address] documented as of this encounter Procedures Procedure Name Priority Date/Time Associated Diagnosis Comments MR HIP RT WO CON 03/27/2024 3:34 PM EDT documented in this encounter Results * MR HIP RT WO CON (03/27/2024 3:34 PM EDT) Anatomical Region Laterality Modality Other 03/27/2024 3:34 PM EDT Narrative 03/27/2024 3:37 PM EDT The [address] [address] Magnetic Resonance Report Signed Patient: STACEY FIGUEROA MR#: [id number] : 1975 Acct:[id number] Age/Sex: 48 / F ADM Date: 03/26/24 Loc: MRI Attending Dr: CharyStaff Physician Powell Ordering Physician: Ilia Reno M.D. Date of Service: 03/26/24 Procedure(s): MR hip RT wo con Accession Number(s): [id number] cc: Essie Ryan NP; Ilia Reno M.D. [place] [address] Patient Name: STACEY FIGUEROA MRN: [facility]:[id number] date: 1975 Sex: F Assigned Patient Location: MRI Current Patient Location: Accession/Order Number: [id number] Exam Date: 03/26/2024 14:05 Report Date: 03/27/2024 [...] sacroiliac joint is seen. On the large hfmdb-kz-gaon images of the pelvis there appear to [...] the right acetabulum. 4. 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 Electronically authenticated by: HARPER VELASQUEZ Date: 03/27/2024 15:34 Dictated By: Harper Velasquez M.D. Signed By: 03/27/24 1537 DD/ 153 TD/TT: Backup Operator: Procedure Note Radiology, Radiologist, - 03/27/2024 [place] [address] Magnetic Resonance Report Signed Patient: STACEY FIGUEROA [facility]#: [id number] : 1975Acct:[id number] Age/Sex: 48 / FADM Date: 03/26/24 Loc: MRI Attending Dr: Diandra-Staff Physician [place] Ordering Physician: Ilia Reno M.D. Date of Service: 03/26/24 Procedure(s): MR hip RT wo con Accession Number(s): [id number] cc: Essie Ryan NP; PhysicianIlia M.D. [place] [id number] Patient Name: STACEY FIGUEROA MRN: [facility]:[id number] date: 1975 Sex: F Assigned Patient Location: MRI Current Patient Location: Accession/Order Number: [id number] Exam Date: 03/26/2024 14:05 Report Date: 03/27/2024 [...] left sacroiliac joint is seen. Onthe large etvxg-gh-rfyt images of the pelvis there appear to [...] the right acetabulum. 4. 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 Electronically authenticated by: HARPER VELASQUEZ Date: 03/27/2024 15:34 Dictated By: Harper Velasquez M.D. Signed By:03/27/24 1537 DD/ 33 TD/TT: Backup Operator: Generic External Data Provider [facility] Final Result documented in this encounter Visit Diagnoses Not on filedocumented in this encounter Care Teams Stove Carriage Operator Relationship Specialty Start Date End Date Yuriy Martins MD [address] [place] [address] PCP - General Family Medicine 08/17/23 04/09/24 Essie Ryan NP [address] [place] [address] PCP - [facility] 12/25/23 Yuriy Martins MD [address] [place] [address] PCP - General Family Medicine 05/29/24 Essie Ryan NP [address] [place] [address] Nurse Practitioner Family Medicine 08/17/23 documented as of this encounter
--- OUTSIDE RECORDS SUMMARY | 2024-11-28 10:40 | XMS_ITS | Encounter Summary ---
Author Organization [facility] Address [address] [facility] [place] [address] Care Team Providers Care Drier Helper Name Role Phone Yuriy Martins MD Primary Care Provider [phone] Essie Ryan FAMILY SERVICE CASEWORKER Unavailable [phone] Essie Ryan FAMILY SERVICE CASEWORKER Unavailable [phone] Yuriy Martins MD Primary Care Provider [phone] Encounter Details Date Type Department Care Team (Late st Contact Info) Description 03/27/2024 Orders Only [facility] [address] [place] [address] Essie Ryan NP [address] [place] [address] Social History Tobacco Use Types Packs/Day Years [...] declined 06/14/2023 How often do you attend mormonism or episcopalian serv ices? Patient declined 06/14/2023 Do you [...] Recorded Patient Health Questionnaire-2 Score 0 11/08/2023 [facility] - Occupational Stress Questionnaire [...] place to sleep or slept in a care home (including now)? No 06/14/2023 Comments Unknown Sex and Gender Information Value Date Recorded Sex Assigned at Not on file Legal Sex Female 7:01 PM EDT Gender Identity Not on file Sexual Orientation Not on file documented as of this encounter Plan of Treatment Upcoming Encounters Date Type Department Care Team (Late st Contact Info) Description 01/01/2025 1:00 PM EDT [facility] [address] [place] [address] Essie Ryan NP [address] [place] [address] documented as of this encounter Procedures Procedure [...] on filedocumented in this encounter Care Teams Drier Helper Relationship Specialty Start Date End Date Yuriy Martins MD [address] [place] [address] PCP - General Family Medicine 08/17/23 04/09/24 Essie Ryan NP [address] [place] [address] PCP - [facility] 12/25/23 Yuriy Martins MD [address] [place] [address] PCP - General Family Medicine 05/29/24 Essie Ryan NP [address] [place] [address] Nurse Practitioner Family Medicine 08/17/23 documented as of this encounter
--- OUTSIDE RECORDS SUMMARY | 2024-11-28 10:40 | XMS_ITS | Encounter Summary ---
Author Organization [facility] Address [address] [place] [address] Care Team Providers Care Sr. Manager Marketing Name Role Phone Yuriy Martins MD Primary Care Provider [phone] Essie Ryan ICT TRAINER Unavailable [phone] Essie Ryan ICT TRAINER Unavailable [phone] Yuriy Martins MD Primary Care Provider [phone] Encounter Details Date Type Department Care Team [...] declined 06/14/2023 How often do you attend spiritism or sabianism serv ices? Patient declined 06/14/2023 Do you belong to any clubs o r organizations such as spiritism groups, unions, fraternal or athletic groups, or [...] Recorded Patient Health Questionnaire-2 Score 0 11/08/2023 [facility] - Occupational Stress Questionnaire [...] place to sleep or slept in a retirement (including now)? No 06/14/2023 Comments Unknown Sex [...] Visit [facility] [address] [place] [address] Essie Ryan NP [address] [place] [address] documented as of this encounter Procedures Procedure Name Priority Date/Time Associated Diagnosis Comments MR LUMBAR SPINE WO CON 12/27/2023 8:25 PM EDT documented in this encounter Results * MR LUMBAR SPINE WO CON (12/27/2023 8:25 PM EDT) Anatomical Region Laterality Modality Other 12/27/2023 8:25 PM EDT Narrative 12/27/2023 8:28 PM EDT The [address] [address] Magnetic Resonance Report Signed Patient: STACEY FIGUEROA MR#: [id number] : 1975 Acct:[id number] Age/Sex: 48 / F ADM Date: 12/27/23 Loc: MRI Attending Dr: Angel Delgado M.D. Ordering Physician: Angel Delgado M.D. Date of Service: 12/27/23 Procedure(s): MR lumbar spine wo con Accession Number(s): [id number] cc: Essie Ryan NP; Angel Delgado M.D. [place] [address] Patient Name: STACEY FIGUEROA MRN: [facility]:[id number] date: 1975 Sex: F Assigned Patient Location: MRI Current Patient Location: MRI Accession/Order Number: [id number] Exam Date: 12/27/2023 07:00 Report Date: 12/27/2023 [...] M.D. Signed By: 12/27/232027 DD/ 24 TD/TT: Customer Experience Specialist: Procedure Note Radiology, Radiologist, MD - 12/27/2023 [place] [address] Magnetic Resonance Report Signed Patient: STACEY FIGUEROA [facility]#: [id number] : 1975Acct:[id number] Age/Sex: 48 / FADM Date: 12/27/23 Loc: MRI Attending Dr: Angel Delgado M.D. Ordering Physician: Angel Delgado M.D. Date of Service: 12/27/23 Procedure(s): MR lumbar spine wo con Accession Number(s): [id number] cc: Essie Ryan ICT TRAINER; Angel Delgado M.D. The [place] [id number] Patient Name: STACEY FIGUEROA MRN: [id number] date: 1975 Sex: F Assigned Patient Location: MRI Current Patient Location: MRI Accession/Order Number: [id number] Exam Date: 12/27/2023 07:00 Report Date: 12/27/2023 [...] Villalobos M.D. Signed By:12/27/232027 DD/ 24 TD/TT: Customer Experience Specialist: us Generic External Data Provider [facility] Final Result documented in this encounter Visit Diagnoses Not on filedocumented in this encounter Care Teams Sr. Manager Marketing Relationship Specialty Start Date End Date Yuriy Martins MD [address] [place] [address] PCP - General Family Medicine 08/17/23 04/09/24 Essie Ryan NP [address] [place] [address] PCP - [facility] 12/25/23 Yuriy Martins MD [address] [place] [address] PCP - General Family Medicine 05/29/24 Essie Ryan NP [address] [place] [address] Nurse Practitioner Family Medicine 08/17/23 documented as of this encounter
--- OUTSIDE RECORDS SUMMARY | 2024-11-28 10:40 | XMS_ITS | Encounter Summary ---
Author Organization [facility] Address [address] [place], [place] [address] Care Team Providers Care High Pressure Boiler Operator Name Role Phone CharliEssie ha Fely BAH Primary Care Provider [phone] Adán Torres DO Unavailable [phone] Dany ARDON MD, [facility] Unavailable + Angel Delgado DO Unavailable [phone] Source Comments In the event this information is protected by the Federal Confidentiality of Alcohol and Drug AbusePatient Records regulations: The Federal rules restrict any use of the information to criminally investigate or prosecute any alcohol or drug abuse patient.[facility] Encounter Details Date Type Department Care Team (Late st Contact Info) Description 09/30/2024 Patient Msg Orthopaedics [address] [place], [place] [phone] Yanni Spring MD [address] [place] [address] Appointment Request Social History Tobacco Use Types Packs/Day Years Used Date Smoking Tobacco: Never Smokeless Tobacco: Never Alcohol Use Standard Drinks/Week Comments No 0 (1 standard drink = 0.6 oz pur e alcohol) [facility] Utilities Answer Date Recorded In the [...] any time in the past 12 m [facility], were you homeless or living in a usp (including now)? No 07/01/2024 Area Deprivation Index Answer Date Erik rded National Score (1-100), lower number is lower ri sk 93 03/15/2024 State Score (1-10), lower number is lower risk 9 03/15/2024 Data from: https://www.neighborhoodatlas.medicine.[facility].edu/. Last address used for calculation [address] [...] on filedocumented in this encounter Care Teams High Pressure Boiler Operator Relationship Specialty Start Date End Date Essie Ryan CNP PCP - General Family Medicine 07/22/16 Adán Torres DO Obstetrics 07/22/16 Alexis Saenz II, MD [address] [place] [address] Referring Orthopedics 12/13/21 Angel Delgado DO [address] [place] [address] Referring Orthopedics 03/08/24 documented as of this encounter
--- OUTSIDE RECORDS SUMMARY | 2024-11-28 10:40 | XMS_ITS | Encounter Summary ---
Author Organization [facility] Address [address] [place], [place] [address] Care Team Providers Care Classer Name Role Phone CharliEssie ha Fely BAH Primary Care Provider Adán Torres DO Unavailable Dany ARDON MD, [facility] Unavailable + Angel Delgado DO Unavailable [phone] Source Comments In the event this information is protected by the Federal Confidentiality of Alcohol and Drug AbusePatient Records regulations: The Federal rules restrict any use of the information to criminally investigate or prosecute any alcohol or drug abuse patient.[facility] Encounter Details Date Type Department Care Team (Late st Contact Info) Description 09/30/2024 Get Medical Advice Orthopaedics [address] [place], [place] [phone] Yanni Spring MD [address] [place] [address] Visit Social History Tobacco Use Types Packs/Day Years Used Date Smoking Tobacco: Never Smokeless Tobacco: Never Alcohol Use Standard Drinks/Week Comments No 0 (1 standard drink = 0.6 oz pur e alcohol) [facility] Utilities Answer Date Recorded In the past [...] any time in the past 12 m [facility], were you homeless or living in a long term (including now)? No 07/01/2024 Area Deprivation Index Answer Date Erik rded National Score (1-100), lower number is lower ri sk 93 03/15/2024 State Score (1-10), lower number is lower risk 9 03/15/2024 Data from: https://www.neighborhoodatlas.medicine.[facility].edu/. Last address used for calculation [address] [...] on filedocumented in this encounter Care Teams Classer Relationship Specialty Start Date End Date Essie Ryan CNP PCP - General Family Medicine 07/22/16 Adán Torres DO Obstetrics 07/22/16 Alexis Saenz II, MD [address] [place] [address] Referring Orthopedics 12/13/21 Angel Delgado DO [address] [place] [address] Referring Orthopedics 03/08/24 documented as of this encounter
--- OUTSIDE RECORDS SUMMARY | 2024-11-28 10:40 | XMS_ITS | Encounter Summary ---
Author Organization [facility] Address [address] [place] [address] Care Team Providers Care Ancillary Specialist Name Role Phone Yuriy Martins MD Primary Care Provider [phone] Essie Ryan TRIM CREW SUPERVISOR Unavailable [phone] Essie Ryan TRIM CREW SUPERVISOR Unavailable [phone] Yuriy Martins MD Primary Care Provider [phone] Encounter Details Date Type Department Care Team [...] How often do you attend yarsanism or baptist serv ices? Patient declined 06/14/2023 [...] Recorded Patient Health Questionnaire-2 Score 0 11/08/2023 [facility] [...] EDT Office Visit [facility] [address] [place] [address] Essie Ryan NP [address] [place] [address] documented as of this encounter Procedures Procedure [...] Mild right hip osteoarthritis, similar to 11/17/2021. Ham Doctor: Lemon Transcribe Date/Time: Mar 19 2024 9:10A Dictated by : MELISSA MODI MD This examination was interpreted and the report reviewed and electronically signed by: MELISSA MODI MD on Mar 19 2024 9:11AM EST [id number]^[id number]^SI^ACN Procedure Note Radiology, Radiologist, - 03/19/2024 * [...] COMPARISON: MR right femur 12/03/2021, right femur lkjadupdank07/25/2022 RESULT: No acute fracture or osseous alignment. Bilateral superior acetabular osteophytes, slightly more pronounced on the right and similar to prior. Hip joint spaces are maintained bilaterally. Sacroiliac joint spaces and pubic symphysis are also preserved. Facet arthropathy at L5-S1, more pronounced on the left. Redemonstrated postoperative changes in the right lower quadrant. IMPRESSION: Mild right hip osteoarthritis, similar to 11/17/2021. Ham Doctor: Lemon Transcribe Date/Time: Mar 19 2024 9:10A Dictated by : MELISSA MODI MD This examination was interpreted and the report reviewed and electronically signed by: MELISSA MODI MD on Mar 19 2024 9:11AM EST [id number]^AGFA_[id number]^SI^ACN us Generic External Data Provider [facility] Final Result documented in this encounter Visit Diagnoses Not on filedocumented in this encounter Care Teams Ancillary Specialist Relationship Specialty Start Date End Date Yuriy Martins MD [address] [place] [address] PCP - General Family Medicine 08/17/23 04/09/24 Essie Ryan NP [address] [place] [address] PCP - [facility] 12/25/23 Yuriy Martins MD [address] [place] [address] PCP - General Family Medicine 05/29/24 Essie Ryan NP [address] [place] [address] Nurse Practitioner Family Medicine 08/17/23 documented as of this encounter
--- OUTSIDE RECORDS SUMMARY | 2024-11-28 10:40 | XMS_ITS | Encounter Summary ---
Author Organization [facility] Address [address] [place], [place] [address] Care Team Providers Care Civil Drafting Technician Name Role Phone CharliEssie ha Fely BAH Primary Care Provider Adán Torres DO Unavailable [phone] Dany ARDON MD, [facility] Unavailable + Angel Delgado DO Unavailable [phone] Source Comments In the event this information is protected by the Federal Confidentiality of Alcohol and Drug AbusePatient Records regulations: The Federal rules restrict any use of the information to criminally investigate or prosecute any alcohol or drug abuse patient.[facility] Encounter Details Date Type Department Care Team (Late st Contact Info) Description 09/30/2024 Patient Msg Orthopaedics [address] [place], [place] [phone] Yanni Spring MD [address] [place] [address] Appointment Request Social History Tobacco Use Types Packs/Day Years Used Date Smoking Tobacco: Never Smokeless Tobacco: Never Alcohol Use Standard Drinks/Week Comments No 0 (1 standard drink = 0.6 oz pur e alcohol) [facility] Utilities Answer Date Recorded In [...] any time in the past 12 m [facility], were you homeless or living in a long term (including now)? No 07/01/2024 Area Deprivation Index Answer Date Erik rded National Score (1-100), lower number is lower ri sk 93 03/15/2024 State Score (1-10), lower number is lower risk 9 03/15/2024 Data from: https://www.neighborhoodatlas.medicine.[facility].edu/. Last address used for calculation [address] [...] on filedocumented in this encounter Care Teams Civil Drafting Technician Relationship Specialty Start Date End Date Essie Ryan CNP PCP - General Family Medicine 07/22/16 Adán Torres DO Obstetrics 07/22/16 Alexis Saenz II, MD [address] [place] [address] Referring Orthopedics 12/13/21 Angel Delgado DO [address] [place] [address] Referring Orthopedics 03/08/24 documented as of this encounter
[2024-11-28] MEDS: LACTATED RINGER'S SOLUTION 1,000 ML 50 ML IV ×2 (11:33→14:20)
[2024-11-28] MEDS: CIPROFLOXACIN 400 MG/200 ML D5W PREMIX 200 MG IV (13:35)
--- NOTE | 2024-11-28 13:59 | PM.URSON ---
Urology Surgery Operative Note Operative Note Procedure Date: 11/28/24 Time Out Performed: yes Pre-op Diagnosis: Right nephrolithiasis Post-op Diagnosis: same as pre-op Procedures performed: 1. Right ESWL. Anesthesia: General-LMA Primary Surgeon: Jose Khan Complications: None Estimated blood loss (mL): 0 Findings: Right nonobstructing renal calculus Specimens: None Drains: None Indications for Procedures: This lady has a right renal calculus which is approximately 8 mm in size. It is nonobstructing. She now presents for right ESWL. She has signed an informed consent after risks were explained. Some of these risks include bleeding, perinephric hematoma, infection and anesthesia to name a few. Detailed description of Procedure: The patient was brought to the Operating Room and placed on Siemens electromagnetic lithotripsy treatment table in the supine position. SCDs were placed on their lower extremities and turned on and functioning during the entire case. Timeout was done by all parties in the room. We all agreed upon the patient's identification and the planned procedures for this patient. General Anesthesia was then administered via LMA. Treatment head was then brought to the patient's correct side. While using flourscopy the stone was identified and lined up into the crosshairs. We then began applying shocks. I started applying shocks at a power level 2.0 and then increased to a maximum power level of 3.5. Intermittent fluoroscopy revealed that the stone was very quick to fragment. It began fragmenting within 200 shocks. We applied a total of 1500 shocks and we had no evidence of any formed stone remaining at the end of the procedure. The procedure was then terminated. She was then transferred to a [facility] bed and wheeled to PACU in stable condition.
== END 2024-11-28 15:18 | disposition home or self-care (01) ==
LOC: SURGOUT 10:36
PROVIDERS: PCP Nurse Practitioner; Visit Provider Urology
PROC: (CPT 873; principal; 2024-11-28 11:55)
DX: N20.0 Calculus of kidney (principal); I27.20 Pulmonary hypertension, unspecified; E78.5 Hyperlipidemia, unspecified; K50.90 Crohn's disease, unspecified, without complications; F31.9 Bipolar disorder, unspecified; Z90.710 Acquired absence of both cervix and uterus; Z98.51 Tubal ligation status; Z87.891 Personal history of nicotine dependence; G47.33 Obstructive sleep apnea (adult) (pediatric); E07.9 Disorder of thyroid, unspecified
CPT/HCPCS: 50590; 36415; 74018; J0744

== ENCOUNTER 2025-02-11 11:18 | Outpatient (OUT) | payer OTHER, SELFPAY ==
--- OUTSIDE RECORDS SUMMARY | 2025-02-11 11:22 | XMS_ITS | Encounter Summary ---
Author Organization [facility] Address [address] [place] [address] Care Team Providers Care Awning Craftsman Name Role Phone Yuriy Martins MD Primary Care Provider [phone] Essie Ryan DELINQUENCY COUNSELOR Unavailable [phone] Essie Ryan DELINQUENCY COUNSELOR Unavailable [phone] Yuriy Martins MD Primary Care Provider [phone] Encounter Details Date Type Department Care Team (Late st Contact Info) Description 11/10/2023 Clinisync Result Encounter [facility] External Department Unsolicited Shaikh Dutton MD [address] [place] [address] Social History Tobacco Use Types Packs/Day Years [...] declined 06/14/2023 How often do you attend hinduism or anabaptist serv ices? Patient declined 06/14/2023 Do you belong to any clubs o r organizations such as hinduism groups, unions, fraternal or athletic groups, or [...] Recorded Patient Health Questionnaire-2 Score 0 11/08/2023 [facility]ational Stress Questionnaire [...] EDT Narrative 11/10/2023 6:15 AM EDT The [address] [address] XRay Report Signed Patient: STACEY SAHU MR#: [id number] : 1975 Acct:[id number] Age/Sex: 48 / F ADM Date: 11/08/23 Loc: RAD Attending Dr: Shaikh Christopher Powell Ordering Physician: Shaikh Andre Dutton Date of Service: 11/08/23 Procedure(s): XR foot LT min 3V Accession Number(s): [id number] cc: Essie Ryan DELINQUENCY COUNSELOR; Shaikh Andre Dutton The [place] [id number] Patient Name: STACEY SAHU MRN: [id number] date: 1975 Sex: F Assigned Patient Location: [facility] Current Patient Location: Accession/Order Number: [id number] Exam Date: 11/08/2023 16:47 Report Date: 11/10/2023 06:11 At the request of: SHAIKH CHRISTOPHER Procedure: XR foot LT min 3V PROCEDURE: [...] M.D. Signed By: 11/10/23614 DD/ 0 TD/TT: Cylinder Machine Operator: Procedure Note Radiology, Radiologist, MD - 11/10/2023 [place] [address] XRay Report Signed Patient: STACEY SAHU AMR#: [id number] : 1975Acct:[id number] Age/Sex: 48 / FADM Date: 11/08/23 Loc: RAD Attending Dr: Shaikh Christopher Powell Ordering Physician: Shaikh Andre Dutton Date of Service: 11/08/23 Procedure(s): XR foot LT min 3V Accession Number(s): [id number] cc: Essie Ryan DELINQUENCY COUNSELOR; Shaikh Andre Dutton [address] [address] Patient Name: STACEY SAHU MRN: [id number] date: 1975 Sex: F Assigned Patient Location: [facility] Current Patient Location: Accession/Order Number: [id number] Exam Date: 11/08/2023 16:47 Report Date: 11/10/2023 06:11 At the request of: SHAIKH CHRISTOPHER Procedure: XR foot LT min 3V PROCEDURE: [...] Gross M.D. Signed By:11/10/23614 DD/ 0 TD/TT: Cylinder Machine Operator: Shaikh Christopher [facility] Final Result documented in this encounter Visit Diagnoses Not on filedocumented in this encounter Care Teams Awning Craftsman Relationship Specialty Start Date End Date Yuriy Martins MD [address] [place] [address] PCP - General Family Medicine 08/17/23 04/09/24 Essie Ryan NP [address] [place] [address] PCP - [facility] 12/25/23 Yuriy Martins MD [address] [place] [address] PCP - General Family Medicine 05/29/24 Essie Ryan NP [address] [place] [address] Nurse Practitioner Family Medicine 08/17/23 documented as of this encounter
--- OUTSIDE RECORDS SUMMARY | 2025-02-11 11:22 | XMS_ITS | Encounter Summary ---
Author Organization [facility] Address [address] [place], [place] [address] Care Team Providers Care Cdl Instructor Name Role Phone CharliEssie ha Fely BAH Primary Care Provider [phone] Adán Torres DO Unavailable Dany ARDON MD, [facility] Unavailable + Angel Delgado DO Unavailable [phone] Source Comments In the event this information is protected by the Federal Confidentiality of Alcohol and Drug AbusePatient Records regulations: The Federal rules restrict any use of the information to criminally investigate or prosecute any alcohol or drug abuse patient.[facility] Encounter Details Date Type Department Care Team (Late st Contact Info) Description 01/10/2025 Patient Msg Orthopaedic Surgery [facility] [address] [place] [address] Yanni Spring MD [address] [place], [place] [id number] Appointment Request Social History Tobacco Use Types Packs/Day Years Used Date Smoking Tobacco: Never Smokeless Tobacco: Never Alcohol Use Standard Drinks/Week Comments No 0 (1 standard drink = 0.6 oz pur e alcohol) [facility] Utilities Answer Date Recorded In the past [...] any time in the past 12 [facility], were you homeless or living in a jail (including now)? No 07/01/2024 Area Deprivation Index Answer Date Erik rded National Score (1-100), lower number is lower ri sk 93 03/15/2024 State Score (1-10), lower number is lower risk 9 03/15/2024 Data from: https://www.neighborhoodatlas.medicine.[facility].edu/. Last address used for calculation [address] [...] Author No 12/16/2020 1:10 PM EDT Meg Maldoando i, RN * Are you blind or [...] on filedocumented in this encounter Care Teams Cdl Instructor Relationship Specialty Start Date End Date Essie Ryan CNP PCP - General Family Medicine 07/22/16 Adán Torres DO Obstetrics 07/22/16 Alexis Saenz II, MD [address] [place] [address] Referring Orthopedics 12/13/21 Angel Delgado DO [address] [email or web address] [address] Referring Orthopedics 03/08/24 documented as of this encounter
--- OUTSIDE RECORDS SUMMARY | 2025-02-11 11:22 | XMS_ITS | Encounter Summary ---
Author Organization [facility] Address [address] [place] [address] Care Team Providers Care Manager Brand Name Role Phone Yuriy Martins MD Primary Care Provider [phone] Essie Ryan RAILCAR SWITCHMAN Unavailable [phone] Essie Ryan RAILCAR SWITCHMAN Unavailable [phone] Yuriy Martins MD Primary Care Provider [phone] Encounter Details Date Type Department Care Team (Late st Contact Info) Description 11/08/2023 Orders Only [facility] [address] [place] [address] Shaikh Dutton MD [address] [place] [address] Social History Tobacco Use Types Packs/Day Years [...] declined 06/14/2023 How often do you attend quaker or worship serv ices? Patient declined 06/14/2023 Do you belong to any clubs o r organizations such as quaker groups, unions, fraternal or athletic groups, or [...] Recorded Patient Health Questionnaire-2 Score 0 11/08/2023 [facility] - Occupational [...] filedocumented in this encounter Care Teams Manager Brand Relationship Specialty Start Date End Date Yuriy Martins MD [address] [place] [address] PCP - General Family Medicine 08/17/23 04/09/24 Essie Ryan NP [address] [place] [address] PCP - [facility] 12/25/23 Yuriy Martins MD [address] [place] [address] PCP - General Family Medicine 05/29/24 Essie Ryan NP [address] [place] [address] Nurse Practitioner Family Medicine 08/17/23 documented as of this encounter
--- OUTSIDE RECORDS SUMMARY | 2025-02-11 11:22 | XMS_ITS | Encounter Summary ---
Author Organization [facility] Address [address] [place] [address] Care Team Providers Care Hardboard Coating Machine Operator Name Role Phone Essie Ryan LOCOMOTIVE OPERATOR HELPER Unavailable [phone] Essie Ryan NP Unavailable [phone] Yuriy Martins MD Primary Care Provider [phone] Encounter Details Date Type Department Care Team [...] How often do you attend amish or sabianism serv ices? Patient declined 06/14/2023 [...] Recorded Patient Health Questionnaire-2 Score 0 11/08/2023 [facility] - Occupational [...] place to sleep or slept in a penitentiary (including now)? No 06/14/2023 Comments Unknown Sex [...] QTC Calculation(Bazett) : 447 ms Calculated P [place] : 56 degrees Calculated R [place] : 72 degrees Calculated T [place] : 65 degrees NORMAL SINUS RHYTHM NORMAL ECG Confirmed by PETR LUCIANO MD ([id number]) on 2024 2:12:45 PM NAME : STACEY SAHU PID : [id number] : 1975 Gender : Female Race : ORD : [id number] Procedure Date : Jun 05 2024 10:36:34 Edit Date : 2024 14:15:04 Diagnosis: NORMAL SINUS RHYTHM NORMAL ECG Confirmed by PETR LUCIANO MD ([id number]) on 2024 2:12:45 PM Test Reason : PRE OP Location : 545 : [facility] Overread By : PETR LUCIANO MD Edited By : PETR LUCIANO MD Referred By : LOIS MCKEON Acquired by : GERALDO, Procedure Note Radiology, Radiologist, MD - 2024 Ventricular Rate : 79 BPM Atrial Rate : 79 BPM P-R Interval : 124 ms QRS Duration : 102 ms Q-T Interval : 390 ms QTC Calculation(Bazett) : 447 ms Calculated P [place] : 56 degrees Calculated R [place] : 72 degrees Calculated T [place] : 65 degrees NORMAL SINUS RHYTHM NORMAL ECG Confirmed by PETR LUCIANO MD ([id number]) on 2024 2:12:45 PM NAME : STACEY SAHU PID : [id number] : 1975 Gender : Female Race : ORD : [id number] Procedure Date : Jun 05 2024 10:36:34 Edit Date : 2024 14:15:04 Diagnosis: NORMAL SINUS RHYTHM NORMAL ECG Confirmed by PETR LUCIANO MD ([id number]) on 2024 2:12:45 PM Test Reason : PRE OP Location : 545 : [facility] Overread By : PETR LUCIANO MD Edited By : PETR LUCIANO MD Referred By : LOIS MCKEON Acquired by : GERALDO, us Generic External Data Provider ECG ORDERABLES F inal Result [facility] documented in this encounter Visit Diagnoses Not on filedocumented in this encounter Care Teams Hardboard Coating Machine Operator Relationship Specialty Start Date End Date Essie Ryan NP [address] [place] [address] PCP - [facility] 12/25/23 Yuriy Martins MD [address] [place] [address] PCP - General Family Medicine 05/29/24 Essie Ryan NP [address] [place] [address] Nurse Practitioner Family Medicine 08/17/23 documented as of this encounter
--- OUTSIDE RECORDS SUMMARY | 2025-02-11 11:22 | XMS_ITS | Encounter Summary ---
Author Organization [facility] Address [address] [place] [address] Care Team Providers Care Dry Can Tender Name Role Phone Yuriy Martins MD Primary Care Provider [phone] Essie Ryan HEALTH PROMOTION OFFICER Unavailable [phone] Essie Ryan HEALTH PROMOTION OFFICER Unavailable [phone] Yuriy Martins MD Primary Care Provider [phone] Encounter Details Date Type Department Care Team (Late st Contact Info) Description 01/01/2024 Orders Only [facility] [address] [place] [address] Angel Delgado MD [address] [place] [address] Social History Tobacco Use Types Packs/Day [...] declined 06/14/2023 How often do you attend sabianist or congregation serv ices? Patient declined 06/14/2023 Do you belong to any clubs o r organizations such as sabianist groups, unions, fraternal or athletic groups, or [...] Recorded Patient Health Questionnaire-2 Score 0 11/08/2023 [facility] ional Health - [...] place to sleep or slept in a halfway (including now)? No 06/14/2023 Comments Unknown Sex [...] on filedocumented in this encounter Care Teams Dry Can Tender Relationship Specialty Start Date End Date Yuriy Martins MD [address] [place] [address] PCP - General Family Medicine 08/17/23 04/09/24 Essie Ryan NP [address] [place] [address] PCP - [facility] 12/25/23 Yuriy Martins MD [address] [place] [address] PCP - General Family Medicine 05/29/24 Essie Ryan NP [address] [place] [address] Nurse Practitioner Family Medicine 08/17/23 documented as of this encounter
--- OUTSIDE RECORDS SUMMARY | 2025-02-11 11:22 | XMS_ITS | Encounter Summary ---
Author Organization [facility] Address [address] [place] [address] Care Team Providers Care Orthopedic Designer Name Role Phone Yuriy Martins MD Primary Care Provider [phone] Essie Ryan COOK HELPER VEGETABLE Unavailable [phone] Essie Ryan COOK HELPER VEGETABLE Unavailable [phone] Yruiy Martins MD Primary Care Provider [phone] Encounter Details Date Type Department Care Team [...] How often do you attend gnosticism or evangelical serv ices? Patient declined 06/14/2023 Do you [...] Recorded Patient Health Questionnaire-2 Score 2 07/[facility]/2023 [facility]ational Stress Questionnaire Answer Date [...] AM EST Narrative 08/29/2023 10:42 [place] [address] XRay Report Signed Patient: STACEY SAHU MR#: [id number] : 1975 Acct:[id number] Age/Sex: 48 / F ADM Date: 08/29/23 Loc: [facility] Attending Dr: Non-Staff Physician Andre Ordering Physician: PhysicianNonAndrewStaff Andre Date of Service: 08/29/23 Procedure(s): XR hip RT 2V w/ pelvis Accession Number(s): [id number] cc: Essie Ryan NP; Physician,Non-Staff Andre The [address] [address] Patient Name: STACEY SAHU MRN: [id number] date: 1975 Sex: F Assigned Patient Location: [facility] Current Patient Location: [facility] Accession/Order Number: [id number] Exam Date: 08/29/2023 10:06 Report Date: 08/29/2023 [...] Signed By: 08/29/23 1042 DD/ 1040 TD/TT: Ending Machine Operator: Procedure Note Radiology, Radiologist, - 08/29/[address]23 [place] [address] XRay Report Signed Patient: STACEY SAHU AMR#: [id number] : 1975Acct:[id number] Age/Sex: 48 / FADM Date: 08/29/23 Loc: [facility] Attending Dr: Non-Staff Physician Andre Ordering Physician: PhysicianKristinaStaff Andre Date of Service: 08/29/23 Procedure(s): XR hip RT 2V w/ pelvis Accession Number(s): [id number] cc: Essie Ryan NP; PhysicianKristinaStaff Andre The [address] [address] Patient Name: STACEY SAHU MRN: [id number] date: 1975 Sex: F Assigned Patient Location: RAD Current Patient Location: RAD Accession/Order Number: [id number] Exam Date: 08/29/2023 10:06 Report Date: 08/29/2023 [...] M.D. Signed By:08/29/23 1042 DD/ 1040 TD/TT: Ending Machine Operator: Generic External Data Provider IMG XR PROCEDURES Final Result documented in this encounter Visit Diagnoses Not on filedocumented in this encounter Care Teams Orthopedic Designer Relationship Specialty Start Date End Date Yuriy Martins MD [address] [place] [address] PCP - General Family Medicine 08/17/23 04/09/24 Essie yRan NP [address] [place] [address] PCP - [facility] 12/25/23 Yuriy Martins MD [address] [place] [address] PCP - General Family Medicine 05/29/24 Essie Ryan NP [address] [place] [address] Nurse Practitioner Family Medicine 08/17/23 documented as of this encounter
--- OUTSIDE RECORDS SUMMARY | 2025-02-11 11:22 | XMS_ITS | Encounter Summary ---
Author Organization [facility] Address [address] [place] [address] Care Team Providers Care Quality Assurance Technician Name Role Phone Yuriy Martins MD Primary Care Provider [phone] Essie Ryan NP Unavailable [phone] Essie Ryan NP Unavailable [phone] Yuriy Martins MD Primary Care Provider [phone] Encounter Details Date Type Department Care Team (Late st Contact Info) Description 11/22/2023 Orders Only [facility] [address] [place] [address] Essie Ryan NP [address] [place] [address] Social History Tobacco Use Types Packs/Day Years [...] declined 06/14/2023 How often do you attend mu-ism or mosque serv ices? Patient declined 06/14/2023 Do you belong to any clubs o r organizations such as mu-ism groups, unions, fraternal or athletic groups, or [...] Recorded Patient Health Questionnaire-2 Score 0 11/08/2023 [facility] ional Health - Occupational [...] Left Radiogra phic Imaging us Essie Ryan COOK BARBECUE IMG XR PROCEDURES Final Result documented in this encounter Visit Diagnoses Not on filedocumented in this encounter Care Teams Quality Assurance Technician Relationship Specialty Start Date End Date Yuriy Martins MD [address] [facility] [place] [address] PCP - General Family Medicine 08/17/23 04/09/24 Essie Ryan NP [address] [place] [address] PCP - [facility] 12/25/23 Yuriy Martins MD [address] [place] [address] PCP - General Family Medicine 05/29/24 Essie Ryan NP [address] [place] [address] Nurse Practitioner Family Medicine 08/17/23 documented as of this encounter
--- OUTSIDE RECORDS SUMMARY | 2025-02-11 11:22 | XMS_ITS | Clinical Summary ---
Author Organization [facility] Address [address] [place], [place] [address] Care Team Providers Care Quality Control Systems Manager Name Role Phone Essie Ryan CNP Primary Care Provider Adán Torres DO Unavailable [phone] Dany ARDON MD, Alexis Hammond Unavailable + Angel Delgado DO Unavailable [phone] Allergies Active Allergy Reactions Criticality Noted [...] 7 Crohn's disease without comp lication (HCC) [id number] 07/27/2016 Pulmonary HTN Assessment & Plan (06/05/2024 [...] Encounters Date Type Department Care Team Description 01/10/2025 Get Medical Advice Orthopaedics [address] [place] [address] Yanni Spring MD Hip 01/10/2025 Patient Msg Orthopaedic Surgery [facility] [address] [place] [address] Yanni Spring MD Appointment Request from Last 3 Months Family History Medical [...] drink = 0.6 oz pur e alcohol) [facility] Utilities Answer Date Recorded In [...] any time in the past 12 m [facility], were you homeless or living in a snf (including now)? No 07/01/2024 Area Deprivation Index Answer Date Erik rded National Score (1-100), lower number is lower ri sk 93 03/15/2024 State Score (1-10), lower number is lower risk 9 03/15/2024 Data from: https://www.neighborhoodatlas.medicine.[facility].edu/. Last address used for calculation [...] Screening 12/15/2021 Mammogram Screening 08/04/2023 08/04/2022, 3 Influenza Vaccine (#1) 2025 05/03/2012 Diabetes Screening 06/05/2027 06/05/2024, 0 12/14/2020, 12/13/2020, Additional history exists Hepatitis C Screening Completed 12/12/2020 Medical Devices Implanted Type Area [place] Device Identifier Shelf Expiration Date Model / Serial / Lot Insert Acetabular 32mm 0d D Hip X3 Trident Sterile Latex Free - [id number] Implanted:Qty: 1 on 07/01/[address] [facility] Joint - Hip Right: Bone - Hip AYDEE 11/28/2028 [id number] / / [id number] Shell Trident Ii 48mm D Tritanium Acetabular 3 Screw Hole Cluster Sterile - [id number] Implanted:Qty: 1 on 07/01/[address] [facility] Joint - Hip Right: Bone - Hip [employer] 04/11/2029 [id number] / / [id number] Stem Femoral 8x99mm Size 2 High Insignia Collared - [id number] Implanted:Qty: 1 on 07/01/[address] [facility] Joint - Hip Right: Bone - Hip AYDEE 01/31/2029 [id number] / / [id number] Head V40 32mm -4mm Offset Taper Biolox Delta Femoral Hip - [id number] Implanted:Qty: 1 on 07/01/[address] [facility] Joint - Hip Right: Bone - Hip [employer] 12/25/2028 [id number] / / [id number] Screw Trident Ii 6.5mm 30mm Bone Low Profile Hexagonal Sterile - [id number] Implanted:Qty: 1 on 07/01/[address] [facility] Screw Right: Bone - Hip [employer] 02/08/2029 [id number] / / [id number] Procedures Procedure Name Priority [...] 74 - 99 mg/dL 06/06/2024 10:14 AM [facility] Comment: The [place] Diabetes Association (ADA) provides guidance for cutoff [...] Standards of Medical Care in Diabetes 2016, [place] Association. Diabetes Care. 2016.39(Suppl 1). BUN 17 7 - 21 mg/dL 06/06/2024 10:14 AM [facility] Creatinine 0.70 0.58 - 0.96 mg/dL 06/06/2024 10:14 AM [facility] Sodium 140 136 - 144 mmol/L 06/06/2024 10:14 AM [facility] Potassium 4.9 3.7 - 5.1 mmol/L 06/06/2024 10:14 AM [facility] Chloride 104 98 - 107 mmol/L 06/06/2024 10:14 AM EST [facility] CO2 25 22 - 30 mmol/L 06/06/2024 10:14 AM [facility] Anion Gap 11 8 - 15 mmol/L 06/06/2024 10:14 AM [facility] Calcium, Total 9.6 8.5 - 10.2 mg/dL 06/06/2024 10:14 AM [facility] Estimated Glomerular Filtration Rate 108 >=60 mL/min/1.7 3m 06/06/2024 10:14 AM EST [facility] Comment:Estimated Glomerular Filtration Rate (eGFR) is [...] 10:59 AM EST 06/05/2024 10:59 AM EST us Negrita Tejeda BUSINESS SERVICES ANALYST.[facility] Naomi l Result [facility] [address] [id number], [place] * COLONOSCOPY GEN ANES (12/15/2020 7:19 AM EDT) Jewel Cupping Machine Operator Q3 Patient Name: Stacey Sahu Procedure Date: [...] for review. Procedure Code(s): --- Professional --- 61710, Colonoscopy, flexible; with biopsy, single or multiple CPT copyright 2019 [employer]. All rights reserved. Attending Participation: [...] Total Negative Negative 12/13/2020 11:17 AM EDT [facility] Hep C Antibody IA Negative Negative 12/13/2020 11:18 AM EDT [facility] HBsAg Negative Negative 12/13/2020 11:18 AM EDT [facility] Hep B Surface Ab, Qual Negative Negative 12/13/2020 11:18 AM EDT [facility] Comment:NEGATIVE Blood BLOOD SPECIMEN / Unknown 12/12/2020 10:19 PM EDT 12/12/2020 10:20 PM EDT Vania Jackson MD LABORATORY Final Resu lt [facility] [address] [facility] [place] [address] [facility] [address] [place] [address] from Last 3 Months or Most Recently Relevant to Health Maintenance [place] [address] [address] Care Teams Quality Control Systems Manager Relationship Specialty Start Date End Date Essie Ryan CNP PCP - General Family Medicine 07/22/16 Adán Torres DO [facility] 07/22/16 Alexis Saenz II, MD [address] [place] [address] Referring Orthopedics 12/13/21 Angel Delgado DO [address] [place] [address] Referring Orthopedics 03/08/24
--- OUTSIDE RECORDS SUMMARY | 2025-02-11 11:22 | XMS_ITS | Encounter Summary ---
Author Organization [facility] Address [address] [place] [address] Care Team Providers Care Auto Body Straightener Name Role Phone Yuriy Martins MD Primary Care Provider [phone] Essie Ryan BORING MACHINE FEEDER Unavailable [phone] Essie Ryan BORING MACHINE FEEDER Unavailable [phone] Yuriy Martins MD Primary Care Provider [phone] Encounter Details Date Type Department Care Team [...] declined 06/14/2023 How often do you attend anabaptism or voodoo serv ices? Patient declined 06/14/2023 Do you belong to any clubs o r organizations such as anabaptism groups, unions, fraternal or athletic groups, or [...] Recorded Patient Health Questionnaire-2 Score 0 11/08/2023 [facility] - Occupational Stress [...] AM EDT Narrative 11/22/2023 6:26 [place] [address] XRay Report Signed Patient: STACEY SAHU MR#: [id number] : 1975 Acct:[id number] Age/Sex: 48 / F ADM Date: 11/21/23 Loc: EC Attending Dr: Yessy Etienne D.P.M. Ordering Physician: Yessy Etienne D.P.M. Date of Service: 11/21/23 Procedure(s): XR foot LT min 3V Accession Number(s): [id number] cc: Essie Ryan BORING MACHINE FEEDER; Yessy Etienne D.P.M. The [address] [address] Patient Name: STACEY SAHU MRN: [id number] date: 1975 Sex: F Assigned Patient Location: Current Patient Location: Accession/Order Number: [id number] Exam Date: 11/21/2023 10:59 Report Date: 11/22/2023 [...] M.D. Signed By: 11/22/23625 DD/ 2 TD/TT: Piece Dye Worker: Procedure Note Radiology, Radiologist, MD - 11/22/2023 [place] [address] XRay Report Signed Patient: STACEY SAHU AMR#: [id number] : 1975Acct:[id number] Age/Sex: 48 / FADM Date: 11/21/23 Loc: EC Attending Dr: Yessy Etienne D.P.M. Ordering Physician: Yessy Etienne D.P.M. Date of Service: 11/21/23 Procedure(s): XR foot LT min 3V Accession Number(s): [id number] cc: Essie Ryan BORING MACHINE FEEDER; Yessy Etienne D.P.M. The [address] [address] Patient Name: STACEY SAHU MRN: [id number] date: 1975 Sex: F Assigned Patient Location: Current Patient Location: Accession/Order Number: [id number] Exam Date: 11/21/2023 10:59 Report Date: 11/22/2023 [...] Gross M.D. Signed By:11/22/23625 DD/ 2 TD/TT: Piece Dye Worker: us Generic External Data Provider [facility] Final Result documented in this encounter Visit Diagnoses Not on filedocumented in this encounter Care Teams Auto Body Straightener Relationship Specialty Start Date End Date Yuriy Martins MD [address] [place] [address] PCP - General Family Medicine 08/17/23 04/09/24 Essie Ryan NP [address] [place] [address] PCP - [facility] 12/25/23 Yuriy Martins MD [address] [place] [address] PCP - General Family Medicine 05/29/24 Essie Ryan NP [address] [place] [address] Nurse Practitioner Family Medicine 08/17/23 documented as of this encounter
--- OUTSIDE RECORDS SUMMARY | 2025-02-11 11:22 | XMS_ITS | Encounter Summary ---
Author Organization [facility] Address [address] [place] [address] Care Team Providers Care Molded Goods Embossing Press Operator Name Role Phone Yuriy Martins MD Primary Care Provider [phone] Essie Ryan EXT JS DEVELOPER Unavailable [phone] Essie Ryan NP Unavailable [phone] Yuriy Martins MD Primary Care Provider [phone] Encounter Details Date Type Department Care Team (Late st Contact Info) Description 08/17/2023 Clinisync Result Encounter [facility] External Department Unsolicited Essie Ryan, EXT JS DEVELOPER [address] [place] [address] Social History Tobacco Use Types Packs/Day Years [...] declined 06/14/2023 How often do you attend restorationism or mandaen serv ices? Patient declined 06/14/2023 Do you belong to any clubs o r organizations such as restorationism groups, unions, franiiu or athletic groups, or school groups? Patient [...] Recorded Patient Health Questionnaire-2 Score 2 07/13/2023 [facility] - Occupational Stress Questionnaire Answer Date [...] place to sleep or slept in a jail (including now)? No 06/14/2023 Comments Unknown Sex [...] EST Narrative 08/17/2023 7:39 [place] [address] Mammography Report Signed Patient: STACEY SAHU MR#: [id number] : 1975 Acct:[id number] Age/Sex: 48 / F ADM Date: 08/16/23 Loc: MAMMO Attending Dr: Essie Ryan NP Ordering Physician: Essie Ryan NP Results: Date of Service: 08/16/23 Follow Up: Procedure(s): MM tomosynthesis screening BI Accession Number(s): [id number] cc: Essie Ryan NP Patient Name: STACEY SAHU MR#: [id number] : 1975 Exam Date: 08/16/2023 Ordering Doctor: [...] colon cancer at age 56. LOCATION: [facility] BREAST COMPOSITION: Scattered areas fibroglandular [...] Signed By: 08/17/23 0739 DD/ 0738 TD/TT: Ear Specialist: Procedure Note Radiology, Radiologist, MD - 08/17/2023 [place] [address] Mammography Report Signed Patient: STACEY SAHU AMR#: [id number] : 1975Acct:[id number] Age/Sex: 48 / FADM Date: 08/16/23 Loc: MAMMO Attending Dr: Essie Ryan EXT JS DEVELOPER Ordering Physician: Essie Ryan NPResults: Date of Service: 08/16/23Follow Up: Procedure(s): MM tomosynthesis screening BI Accession Number(s): [id number] cc: Essie Ryan EXT JS DEVELOPER Patient Name: STACEY SAHU MR#: [id number] : 1975 Exam Date: 08/16/2023 Ordering Doctor: [...] colon cancer at age 56. LOCATION: [facility] BREAST COMPOSITION: Scattered areas fibroglandular [...] Gross M.D. Signed By:08/17/23 0739 DD/ TD/TT: Ear Specialist: Essie Ryan NP [facility] Final Result documented in this encounter Visit Diagnoses Not on filedocumented in this encounter Care Teams Molded Goods Embossing Press Operator Relationship Specialty Start Date End Date Yuriy Martins MD [address] [place] [address] PCP - General Family Medicine 08/17/23 04/09/24 Essie Ryan NP [address] [place] [address] PCP - [facility] 12/25/23 Yuriy Martins MD [address] [place] [address] PCP - General Family Medicine 05/29/24 Essie Ryan NP [address] [place] [address] Nurse Practitioner Family Medicine 08/17/23 documented as of this encounter
--- OUTSIDE RECORDS SUMMARY | 2025-02-11 11:22 | XMS_ITS | Encounter Summary ---
Author Organization [facility] Address [address] [place], [place] [address] Care Team Providers Care Singing Messenger Name Role Phone CharliEssie ha Fely BAH Primary Care Provider [phone] Adán Torres DO Unavailable [phone] Dany ARDON MD, [facility] Unavailable + Angel Delgado DO Unavailable [phone] Source Comments In the event this information is protected by the Federal Confidentiality of Alcohol and Drug AbusePatient Records regulations: The Federal rules restrict any use of the information to criminally investigate or prosecute any alcohol or drug abuse patient.[facility] Encounter Details Date Type Department Care Team (Late st Contact Info) Description 01/10/2025 Get Medical Advice Orthopaedics [address] [place], [place] [id number] Yanni Spring MD [address] [place] [address] Hip Social History Tobacco Use Types Packs/Day Years Used Date Smoking Tobacco: Never Smokeless Tobacco: Never Alcohol Use Standard Drinks/Week Comments No 0 (1 standard drink = 0.6 oz pur e alcohol) [facility] Utilities Answer Date Recorded In [...] any time in the [facility] were you homeless or living in a snf (including now)? No 07/01/2024 Area Deprivation Index Answer Date Erik rded National Score (1-100), lower number is lower ri sk 93 03/15/2024 State Score (1-10), lower number is lower risk 9 03/15/2024 Data from: https://www.neighborhoodatlas.medicine[facility].edu/. Last address used for calculation [address] [...] on filedocumented in this encounter Care Teams Singing Messenger Relationship Specialty Start Date End Date Essie Ryan CNP PCP - General Family Medicine 07/22/16 Adán Torres DO Obstetrics 07/22/16 Alexis Saenz II, MD [address] [place] [address] Referring Orthopedics 12/13/21 Angel Delgado DO [address] [place] [address] Referring Orthopedics 03/08/24 documented as of this encounter
--- OUTSIDE RECORDS SUMMARY | 2025-02-11 11:22 | XMS_ITS | Encounter Summary ---
Author Organization [facility] Address [address] [place] [address] Care Team Providers Care Deblocker Name Role Phone Yuriy Martins MD Primary Care Provider [phone] Essie Ryan SENIOR MAINTENANCE MACHINIST Unavailable [phone] Essie Ryan SENIOR MAINTENANCE MACHINIST Unavailable [phone] Yuriy Martins MD Primary Care Provider [phone] Encounter Details Date Type Department Care Team (Late st Contact Info) Description 08/31/2023 Orders Only [facility] [address] [place] [address] Social History Tobacco Use Types [...] declined 06/14/2023 How often do you attend sikhism or alevism serv ices? Patient declined 06/14/2023 Do you belong to any clubs o r organizations such as sikhism groups, unions, fraternal or athletic groups, or [...] Recorded Patient Health Questionnaire-2 Score 2 07/13/2023 [facility] - Occupational Stress [...] Anatomical Region Laterality Modality Radiographic Francheska [facility] XR PROCEDURES Final Result documented in this encounter Visit Diagnoses Not on filedocumented in this encounter Care Teams Deblocker Relationship Specialty Start Date End Date Yuriy Martins MD [address] [place] [address] PCP - General Family Medicine 08/17/23 04/09/24 Essie Ryan NP [address] [place] [address] PCP - [facility] 12/25/23 Yuriy Martins MD [address] [place] [address] PCP - General Family Medicine 05/29/24 Essie Ryan NP [address] [place] [address] Nurse Practitioner Family Medicine 08/17/23 documented as of this encounter
--- OUTSIDE RECORDS SUMMARY | 2025-02-11 11:22 | XMS_ITS | Clinical Summary ---
Author Organization [facility] Address [address] [place] [address] Care Team Providers Care Second Rigger Name Role Phone Essie Ryan ADJUNCT POLITICAL SCIENCE INSTRUCTOR Unavailable [phone] Essie Ryan ADJUNCT POLITICAL SCIENCE INSTRUCTOR Unavailable [phone] Yuriy Martins MD Primary Care Provider Allergies Active Allergy Reactions Criticality Noted Date Comments Penicillins Other,Unknown Medium 06/13/2014 As a child Medications dilTIAZem CD (Cardizem CD) 120 MG 24 hr capsule Take 120 mg by mouth in the morning. 5 10/04/19 26 Active meloxicam (Mobic) 15 MG tablet Take 15 mg by mouth Daily 5 Active ARIPiprazole (Abilify) 15 MG tabletIndications:B ipolar disorder, unspecified (HCC) Take 1 tablet (15 mg) by mouth Daily 30 tablet 3 5 Active atorvastatin (Lipitor) 80 MG tabletIndications:M ixed hyperlipidemia Take 1 tablet (80 mg) by mouth in the evening 30 tablet 3 5 Active busPIRone (Buspar) 15 MG tabletIndications:A nxiety Take 0.5 tablets (7.5 mg) by mouth in the morning and 0.5 tablets (7.5 mg) before bedtime. 60 tablet 3 5 Active losartan (Cozaar) 100 MG tabletIndications:P rimary hypertension Take 1 tablet (100 mg) by mouth in the morning. 30 tablet 11 5 01/02/20 26 Active omeprazole (PriLOSEC) 40 MG capsuleIndications: Gastroesophageal reflux disease, unspecified whether esophagitis present Take 1 capsule (40 mg) by mouth in the morning. Take before meals. 30 capsule 5 Active Active Problems Problem Noted Date Diagnosed Date Primary hypertension 01/01/2025 Assessment & Plan (01/01/2025 6:39 AM EDT): Please check blood pressure daily and record DASH diet Limit caffeine Take medication as directed Contact office if chest pain, pressure, dizziness, shortness of breath, swelling legs Recommend slow position changes Current meds: losartan Elevated glucose level 01/01/2025 Assessment & Plan (01/01/2025 6:41 AM EDT): On 11/25/24 129 Check A1c: Left hip pain 09/30/2024 Bipolar disorder, unspecified 08/28/2024 Assessment & Plan (09/30/2024 1:46 PM EDT): Continue buspar and aripiprazole Assessment & Plan (08/28/2024 1:53 PM EST): Used to see psych, does not want to continue with them Current meds: raysa gant PHQ 9=9 FLOR 7=6 Dizziness and giddiness 08/28/2024 Assessment & Plan (01/01/2025 1:23 PM EDT): Saw cardiology, has PVC and PAC's. Was placed on Cardizem, much improved Assessment & Plan (09/30/2024 1:44 PM EDT): Last appt was having sxs, ordered labs No acute findings on exam or labs At this point, I would recommend she discuss with Inspire device doctor S/P total right hip arthroplasty 07/01/2024 Assessment & Plan (08/28/2024 1:51 PM EST): 06/24/24 Normal post op discomfort Did at home PT Bipolar 1 disorder 05/29/2024 Assessment & Plan (01/01/2025 6:40 AM EDT): Is currently taking ability Does not want to see psych Assessment & Plan (05/29/2024 7:36 AM EST): [...] excess calories 0 01/30/2024 Assessment & Plan (01/01/2025 6:39 AM EDT): Discussed with patient their BMI (actual, verses recommended). We have also discussed lifestyle modifications: attempts to perform physical activity as chronic conditions allow, also to monitor dietary intake: increasing protein/fruits/veggies and lowering carb intake (unless contraindicated). Limit sodas, juices, and sugary drinks.. Assessment & Plan (09/30/2024 7:07 AM EDT): [...] (has grandchildren) Hyperlipidemia 09/11/2023 Assessment & Plan (01/01/2025 6:40 AM EDT): On statin therapy Check labs yearly and prn dose changes Assessment & Plan (09/30/2024 7:08 AM EDT): On statin therapy Check labs yearly and prn dose changes Sensorineural hearing loss (SNHL), bilateral Kidney stones 08/29/2023 Chronic right hip pain 08/21/2023 Assessment & Plan (01/09/2025 9:53 AM EDT): Cannot see ortho who did surgery anymore as she has new insurance Assessment & Plan (01/01/2025 1:24 PM EDT): Cannot see ortho who did surgery anymore as she has new insurance Assessment & Plan (09/30/2024 1:45 PM EDT): Restarted meloxicam, still with thigh pain, recommend talking w ortho Assessment & Plan (05/29/2024 7:35 AM EST): Has been with ortho Plan for hip replacement after first of the year Assessment & Plan (01/30/2024 3:58 PM EDT): Seeing ortho, considering a hip replacement Anxiety 07/25/2023 Assessment & Plan (01/01/2025 6:40 AM EDT): Continue current meds: abilify, buspirone Assessment & Plan (09/30/2024 1:46 PM EDT): [...] (pulmonary artery hypertension) 11/08/2022 Assessment & Plan (01/01/2025 6:42 AM EDT): Hx of this in the past and took letaris Recent ECHO 11/17: no evidence of PAH Assessment & Plan (08/28/2024 7:06 AM EST): [...] PAP, looking into inspire No chest pain/pressure/dyspnea NIRMALA (obstructive sleep apnea) 11/25/2016 Assessment & Plan (01/01/2025 1:23 PM EDT): Had Inspire device placement in 08/20 Activated on 09/27/24, feeling more energy, no sleeping during the day Assessment & Plan (09/30/2024 1:45 PM EDT): [...] Obese 11/08/2022 01/14/2023 Flank pain 11/08/2022 01/14/2023 COVID-19 01/24/2022 01/01/2025 Enterolith of small intestine 12/14/2020 08/28/2024 Other [...] Encounters Date Type Department Care Team Description 01/15/2025 Orders Only [facility] [address] [place] [address] Essie Ryan NP S/P total right hip arthroplasty (Primary Dx); Chronic right hip pain 01/10/2025 Orders Only [facility] [address] [place] [phone] Unallocated, Nombernardino Johnson MD 01/09/2025 Orders Only [facility] [address] [place] [address] Essie Ryan NP Chronic right hip pain (Primary Dx) 01/01/2025 1:00 PM EDT [facility] [address] [place] [address] Essie Ryan NP Chronic right hip pain (Primary Dx); NIRMALA (obstructive sleep apnea); Dizziness and giddiness; Primary hypertension ; Morbid (severe) obesity due to excess calories ([facility]); Bipolar 1 disorder ([facility]); Anxiety; Elevated glucose level; PAH (pulmonary artery hypertension) ([facility]); Bipolar disorder, unspecified ([facility]); Mixed hyperlipidemia ; Gastroesophageal reflux disease, unspecified whether esophagitis present 01/01/2025 Bamboo flowsheet [facility] [address] [place] [address] Essie Ryan NP 12/25/2024 Travel 11/28/2024 Clinisync Result Encounter [facility] External Department Unsolicited Provider, Generic External Data 11/25/2024 Clinisync Result Encounter N[facility] External Department Unsolicited Provider, Generic External Data from Last 3 Months Immunizations Immunization Administration Dates Next Due Influenza Whole 05/03/2012 Influenza, injectable, quadrivalent 05/03/2012 Family History Medical History Relation Name [...] week 08/28/2024 How often do you attend taoist or gnosticism serv ices? Never 08/28/2024 Do you belong [...] Recorded Patient Health Questionnaire-2 Score 0 11/08/2023 [facility] of Occupat ional Health - Occupational Stress [...] in a detention (including now)? No 06/14/2023 Housing Stability Vital Sign Answer Williams e Recorded In the last 12 months, was t here a time when you were not able to pay the mortgage or rent on time? No 08/28/2024 In the past 12 months, how m any times have you moved where you were living? 0 08/28/2024 At any time in the past 12 m [facility], were you homeless or living in a detention (including now)? No 08/28/2024 Comments Unknown Sex and Gender Information Value Date Recorded Sex Assigned at Not on file Legal Sex Female 7:01 PM EDT Gender Identity Not on file Sexual Orientation Not on file Last Filed Vital Signs Vital Sign Reading Time Taken Comments Blood Pressure 108/80 01/01/2025 1:04 PM EDT Pulse 86 01/01/2025 1:04 PM EDT Temperature 36.6 C (97.8 F) 01/01/2025 1:04 PM EDT Respiratory Rate 18 01/01/2025 1:04 PM EDT Oxygen Saturation 97% 01/01/2025 1:04 PM EDT Inhaled Oxygen Concentration - - Weight 90.6 kg (199 lb 12.8 oz) 01/01/2025 1:04 PM EDT Height 152.4 cm (5') 05/29/2024 2:40 PM EST Body Mass Index 39.02 05/29/2024 2:40 PM EST Plan of Treatment Health Maintenance Due Date Last Done Comments Pap Smear 1997 HPV/Cotest 2006 Mammogram 10/04/2025 10/04/2024, 07/28, 08/04/2022, Additional history exists Influenza Vaccine Discontinued 05/03/2012, 05/03/2012 Colonoscopy Discontinued 12/15/2020 Colorectal Cancer Screening Discontinued CT Colonography Discontinued Cervical Cancer Screening Discontinued FIT-DNA Discontinued FIT Discontinued FOBT Discontinued Sigmoidoscopy Discontinued Procedures Procedure Name Priority Date/Time Associated Diagnosis Comments POCT GLYCOSYLATED HEMOGLOBIN (HGB A1C) Routine 01/01/2025 1:22 PM EDT Elevated glucose level XR ABDOMEN 1V 11/28/2024 11:20 AM EDT [facility] APTT Routine 11/25/2024 1:45 PM EDT [facility] PROTHROMBIN TIME INR W/O COUM Routine 11/25/2024 1:45 PM EDT ALL BASIC METABOLIC PANEL Routine 11/25/2024 1:45 PM EDT ALL CBC WITH AUTO DIFF Routine 1:45 PM EDT MM TOMOSYNTHESIS SCREENING BI 10/04/2024 12:29 PM EDT from Last 3 Months or Most Recently Relevant to Health Maintenance Results * POCT glycosylated hemoglobin (Hb A1C) docked device (01/01/2025 1:22 PM EDT) Hemoglobin A1C 5.6 Blood Venous blood specimen / Unknown 01/01/2025 1:22 PM EDT us Essie Ryan NP POINT OF CARE TEST ENTER/EDIT O RDERABLES Final Result * XR ABDOMEN 1V (11/28/2024 11:20 AM EDT) Anatomical Region Laterality Modality Other 11/28/2024 11:2 0 AM EDT Narrative 11/28/2024 11:23 [place] [address] XRay Report Signed Patient: STACEY FIGUEROA MR#: [id number] : 1975 Acct:[id number] Age/Sex: 49 / F ADM Date: 11/28/24 Loc: SURGOUT Attending Dr: Jose Garcia M.D. Ordering Physician: Jose Garcia M.D. Date of Service: 11/28/24 Procedure(s): XR abdomen 1V Accession Number(s): [id number] cc: Essie Ryan NP; Jose Garcia M.D. The [address] [id number] Patient Name: STACEY FIGUEROA MRN: [id number] date: 1975 Sex: F Assigned Patient Location: SURGOUT Current Patient Location: SURGOUT Accession/Order Number: [id number] Exam Date: 11/28/2024 11:14 Report Date: 11/28/2024 11:20 At the request of: JOSE GARCIA MD Procedure: XR abdomen 1V SINGLE VIEW ABDOMEN COMPARISON: 09/09/[address] 06/08/2024 CLINICAL DATA: Presurgical planning. History of kidney stones. Supine view of the abdomen and pelvis was obtained. There is air and stool within the colon, greater on the right. There is no dilated small bowel. No soft tissue masses are noted. There are hemostasis clips and 3 ring-shaped radiopaque structures within the right lower abdomen which were also present previously. There is a right upper quadrant calcification measuring approximately 6 mm in size which may be a renal stone. No obvious radiopaque stones are present on the left. There are pelvic phleboliths bilaterally. Mild degenerative changes seen at the spine. There is a right hip prosthesis. XR/XR abdomen 1V IMPRESSION: RIGHT NEPHROLITHIASIS. Impression dictated by: Dinorah Clifford M.D. 11/28/2024 11:20 AM Dictation Location: [place] [address] Electronically authenticated by: [id number] Y Date: 11/28/2024 11:20 Dictated By: Dinorah Clifford M.D. Signed By: 11/28/24 1123 DD/ 1120 TD/TT: Buckle Sewer Machine: Procedure Note Radiology, Radiologist, MD - 11/28/2024 [place] [address] XRay Report Signed Patient: STACEY FIGUEROA AMR#: [id number] : 1975Acct:[id number] Age/Sex: 49 / FADM Date: 11/28/24 Loc: SURGOUT Attending Dr: Jose Garcia M.D. Ordering Physician: Jose Garcia M.D. Date of Service: 11/28/24 Procedure(s): XR abdomen 1V Accession Number(s): [id number] cc: Essie Ryan NP; Jose Garcia M.D. The [place] [id number] Patient Name: STACEY FIGUEROA MRN: [id number] date: 1975 Sex: F [facility]igned [facility] Accession/Order Number: [id number] Exam Date: 11/28/2024 11:14 Report Date: 11/28/2024 11:20 At the request of: JOSE GARCIA MD Procedure: XR abdomen 1V SINGLE VIEW ABDOMEN COMPARISON: 09/09/[address] 06/08/2024 CLINICAL DATA: Presurgical planning. History of kidney stones. Supine view of the abdomen and pelvis was obtained. There is air andstool within the colon, greater on the right. There is no dilated small bowel.No soft tissue masses are noted. There are hemostasis clips and 3ring-shaped radiopaque structures within the right lower abdomen which were alsopresent previously. There is a right upper quadrant calcification measuring approximately 6 mm in size which may be a renal stone. No obviousradiopaque stones are present on the left. There are pelvic phleboliths bilaterally. Mild degenerative changes seen at the spine. There is a right hipprosthesis. XR/XR abdomen 1V IMPRESSION: RIGHT NEPHROLITHIASIS. Impression dictated by: Dinorah Clifford M.D. 11/28/2024 11:20 AM Dictation Location: [place] [address] Electronically authenticated by: [id number] Y Date: 1:20 Dictated By: Dinorah Clifford M.D. Signed By:11/28/24 1123 DD/ 1120 TD/TT: Buckle Sewer Machine: Generic External Data Provider [facility] IMAG[facility] Final Result * SRM[facility] PROTHROMBIN [...] External Data Provider CLINISYNC F inal Result [facility] * [facility] APTT (11/25/2024 1:45 PM EDT) Pathologist [facility] PARTIAL THROMBOPLASTIN TIME 24.5 22.3 - 36.2 sec [facility] 11/25/2024 1:45 PM EDT 11/25/2024 1:48 PM EDT Narrative CLINISYNC - 11/25/2024 2:13 PM EDT us Generic External Data Provider CLINISYNC F inal Result [facility] * (ABNORMAL) ALL CBC WITH AUTO DIFF (11/25/2024 1:45 PM EDT) [facility] TB WBC 7.6 4.0 - 11.0 10 3/uL TBH TB RBC 4.34 4.20 - 5.40 10 6/uL TBH TB HGB 12.4 12.0 - 16.0 g/dL TB TB HCT 38.2 36.0 - 48.0 % TB TB MCV 88.0 81.0 - 99.0 fL TB TB MCH 28.6 26.7 - 34.0 pg TBH TB MCHC 32.5 29.9 - 35.2 g/dL TB TB RDW 13.1 11.0 - 15.0 % TBH TBH PLT 276 150 - 450 10 3/uL TB TB MPV 10.4 9.5 - 13.5 fL TB NEUTROPHILS PERCENT AUTO 46.1 43.0 - 75.0 [...] CLINISYNC F inal Result Performing Organization Address City/[facility]/ZIP Co de Phone Number CLINJEFFNC TB * (ABNORMAL) ALL BASIC METABOLIC PANEL (11/25/2024 [...] 0.55 - 1.02 mg/dL TBH TBH EGFR-AF LAO >60 >=60 mL/min/1.7 3m 2 TBH TBH EGFR-NON AF LAO >60 >=60 mL/min/1.7 3m 2 TBH BUN CREATININE RATIO 18.7 TBH CALCIUM 9.3 8.5 - 10.1 mg/dL [facility] 11/25/2024 1:45 PM EDT 11/25/2024 1:48 PM EDT Narrative CLINISYNC - 11/25/2024 2:08 PM EDT Generic External Data Provider MUNAISYNC F inal Result [facility] TB * MM TOMOSYNTHESIS SCREENING BI (10/04/2024 12:29 PM EDT) Anatomical Region Laterality Modality Other 10/04/2024 12:2 9 PM EDT Narrative 10/04/2024 12:30 PM EDT The [address] [address] Mammography Report Signed Patient: STACEY FIGUEROA MR#: [id number] : 1975 Acct:[id number] Age/Sex: 49 / F ADM Date: 10/04/24 Loc: MAMMO Attending Dr: Essie Ryan NP Ordering Physician: Essie Ryan NP Results: Date of Service: 10/04/24 Follow Up: Procedure(s): MM tomosynthesis screening BI Accession Number(s): [id number] cc: Essie Ryan NP Patient Name: STACEY FIGUEROA MR#: [id number] : 1975 Exam Date: 10/04/2024 Ordering Doctor: NIURKA Ryan ACCESS CONTROL OFFICER RADIOLOGY REPORT PROCEDURE: MM TOMOSYNTHESIS SCREENING BI [...] colon cancer at age 56. LOCATION: [facility] BREAST COMPOSITION: There are scattered areas [...] Signed By: 10/04/24 1230 DD/ 1229 TD/TT: Buckle Sewer Machine: Procedure Note Radiology, Radiologist, MD - 10/04/2024 [place] [address] Mammography Report Signed Patient: STACEY FIGUEROA AMR#: [id number] : 1975Acct:[id number] Age/Sex: 49 / FADM Date: 10/04/24 Loc: MAMMO Attending Dr: Essie Ryan ADJUNCT POLITICAL SCIENCE INSTRUCTOR Ordering Physician: Essie Ryan NPResults: Date of Service: 10/04/24Follow Up: Procedure(s): MM tomosynthesis screening BI Accession Number(s): [id number] cc: Essie Ryan NP Patient Name: STACEY FIGUEROA MR#: [id number] : 1975 Exam Date: 10/04/2024 Ordering Doctor: NIURKA Ryan ACCESS CONTROL OFFICER RADIOLOGY REPORT PROCEDURE: MM TOMOSYNTHESIS SCREENING BI COMPARISON: MM TOMOSYNTHESIS SCREENING BI, 08/16/2023. MG MAMM [id number] GRACIE CAD, 02/09/2022. MG MAMM SCREEN 3D [...] colon cancer at age 56. LOCATION: [facility] BREAST COMPOSITION: There are scattered areas [...] D.O. Signed By:10/04/24 1230 DD/ 1229 TD/TT: Buckle Sewer Machine: Essie Ryan NP [facility] IMAGING Final Result from Last 3 Months or Most Recently Relevant to Health Maintenance Insurance [facility] MEDICAID SAMSPlan A Drink Care Teams Second Rigger Relationship Specialty Start Date End Date Essie Ryan NP [address] [facility] [place] [address] PCP - [facility] 12/25/23 Yuriy Martins MD [address] [place] [address] PCP - General Family Medicine 05/29/24 Essie Ryan NP [address] [place] [address] Nurse Practitioner Family Medicine 08/17/23
--- OUTSIDE RECORDS SUMMARY | 2025-02-11 11:22 | XMS_ITS | Encounter Summary ---
Author Organization [facility] Address [address] [place] [address] Care Team Providers Care Edge Stainer Machine Name Role Phone Yuriy Martins MD Primary Care Provider [phone] Essie Ryan PET CAREGIVER Unavailable [phone] Essie Ryan PET CAREGIVER Unavailable [phone] Yuriy Martins MD Primary Care Provider [phone] Encounter Details Date Type Department Care Team [...] declined 06/14/2023 How often do you attend christian or yarsanism serv ices? Patient declined 06/14/2023 Do you belong to any clubs o r organizations such as christian groups, unions, fraternal or athletic groups, or [...] Recorded Patient Health Questionnaire-2 Score 0 11/08/2023 [employer] [facility] - Occupational Stress Questionnaire [...] place to sleep or slept in a residential (including now)? No 06/14/2023 Comments Unknown Sex [...] Mild right hip osteoarthritis, similar to 11/17/2021. Chief Investigator: AGAPITO Transcribe Date/Time: Mar 19 2024 9:10A Dictated by : MELISSA MODI MD This examination was interpreted and the report reviewed and electronically signed by: MELISSA MODI MD on Mar 19 2024 9:11AM EST [id number] Procedure Note Radiology, Radiologist, MD - 03/19/2024 * * *Final Report* * [...] COMPARISON: MR right femur 12/03/2021, right femur [id number]/25/2022 RESULT: No acute fracture or osseous alignment. Bilateral superior acetabular osteophytes, slightly more pronounced on the right and similar to prior. Hip joint spaces are maintained bilaterally. Sacroiliac joint spaces and pubic symphysis are also preserved. Facet arthropathy at L5-S1, more pronounced on the left. Redemonstrated postoperative changes in the right lower quadrant. IMPRESSION: Mild right hip osteoarthritis, similar to 11/17/2021. Chief Investigator: [employer] Transcribe Date/Time: Mar 19 2024 9:10A Dictated by : MELISSA MODI MD This examination was interpreted and the report reviewed and electronically signed by: MELISSA MODI MD on Mar 19 2024 9:11AM EST [id number]^ACN us Generic External Data Provider [facility] IMAGING Final Result documented in this encounter Visit Diagnoses Not on filedocumented in this encounter Care Teams Edge Stainer Machine Relationship Specialty Start Date End Date Yuriy Martins MD [address] [place] [address] PCP - General Family Medicine 08/17/23 04/09/24 Essie Ryan NP [address] [place] [address] PCP - [facility] 12/25/23 Yuriy Martins MD [address] [place] [address] PCP - General Family Medicine 05/29/24 Essie Ryan NP [address] [place] [address] Nurse Practitioner Family Medicine 08/17/23 documented as of this encounter
--- OUTSIDE RECORDS SUMMARY | 2025-02-11 11:22 | XMS_ITS | Encounter Summary ---
Author Organization [facility] Address [address] [facility] [place] [address] Care Team Providers Care Fishing Rod Assembler Name Role Phone Yuriy Martins MD Primary Care Provider [phone] Essie Ryan ASSOCIATE PARTNER Unavailable [phone] Essie Ryan ASSOCIATE PARTNER Unavailable [phone] Yuriy Martins MD Primary Care Provider [phone] Encounter Details Date Type Department Care Team (Late st Contact Info) Description 03/27/2024 Orders Only [facility] [address] [place] [address] Essie Ryan NP [address] [place] [address] Social History Tobacco Use Types Packs/Day Years [...] declined 06/14/2023 How often do you attend restorationist or synagogue serv ices? Patient declined 06/14/2023 Do you belong to any clubs o r organizations such as restorationist groups, unions, fraternal or athletic groups, or [...] Recorded Patient Health Questionnaire-2 Score 0 11/08/2023 [facility] - [facility]ational [...] on filedocumented in this encounter Care Teams Fishing Rod Assembler Relationship Specialty Start Date End Date Yuri[place]ins [place] [address] PCP - General Family Medicine 08/17/23 04/09/24 Essie Ryan NP [address] [place] [address] PCP - [facility] 12/25/23 Yuriy Martins MD [address] [address] PCP - General Family Medicine 05/29/24 Essie Ryan NP [address] [place] [place] [address] Nurse Practitioner Family Medicine 08/17/23 documented as of this encounter
--- OUTSIDE RECORDS SUMMARY | 2025-02-11 11:22 | XMS_ITS | Encounter Summary ---
Author Organization [facility] Address [address] [place] [address] Care Team Providers Care Hot Iron Worker Name Role Phone Yuriy Martins MD Primary Care Provider [phone] Essie Ryan SKIVER BLOCKERS Unavailable [phone] Essie Ryan SKIVER BLOCKERS Unavailable [phone] Yuriy Martins MD Primary Care Provider [phone] Encounter Details Date Type Department Care Team [...] declined 06/14/2023 How often do you attend shinto or jain serv ices? Patient declined 06/14/2023 Do you belong to any clubs o r organizations such as shinto groups, unions, fraternal or athletic groups, or [...] Recorded Patient Health Questionnaire-2 Score 0 11/08/2023 [facility] - [facility]ational Stress [...] EDT Narrative 12/27/2023 8:28 PM EDT The [address] [address] Magnetic Resonance Report Signed Patient: STACEY SAHU MR#: [id number] : 1975 Acct:[id number] Age/Sex: 48 / F ADM Date: 12/27/23 Loc: MRI Attending Dr: Angel Delgado M.D. Ordering Physician: Angel Delgado M.D. Date of Service: 12/27/23 Procedure(s): MR lumbar spine wo con Accession Number(s): [id number] cc: Essie Ryan SKIVER BLOCKERS; Angel Delgado M.D. The [place] [id number] Patient Name: STACEY SAHU MRN: [facility]:[id number] date: 1975 Sex: F Assigned Patient Location: MRI Current Patient Location: MRI Accession/Order Number: [id number] Exam Date: 12/27/2023 07:00 Report Date: 12/27/2023 [...] M.D. Signed By: 12/27/232027 DD/ 24 TD/TT: Maintenance Mechanic: Procedure Note Radiology, Radiologist, - 12/27/2023 [place] [address] Magnetic Resonance Report Signed Patient: STACEY SAHU AMR#: [id number] : 1975Acct:[id number] Age/Sex: 48 / FADM Date: 12/27/23 Loc: MRI Attending Dr: Angel Delgado M.D. Ordering Physician: Angel Delgado M.D. Date of Service: 12/27/23 Procedure(s): MR lumbar spine wo con Accession Number(s): [id number] cc: Essie Ryan NP; Angel Delgado M.D. [place] [id number] Patient Name: STACEY SAHU MRN: [id number] date: 1975 Sex: F Assigned Patient Location: MRI Current Patient Location: MRI Accession/Order Number: [id number] Exam Date: 12/27/2023 07:00 Report Date: 12/27/2023 [...] Villalobos M.D. Signed By:12/27/232027 DD/ 24 TD/TT: Maintenance Mechanic: Generic External Data Provider [facility] Final Result documented in this encounter Visit Diagnoses Not on filedocumented in this encounter Care Teams Hot Iron Worker Relationship Specialty Start Date End Date Yuriy Martins MD [address] [place] [address] PCP - General Family Medicine 08/17/23 04/09/24 Essie Ryan NP [address] [place] [address] PCP - [facility] 12/25/23 Yuriy Martins MD [address] [place] [address] PCP - General Family Medicine 05/29/24 Essie Ryan NP [address] [place] [address] Nurse Practitioner Family Medicine 08/17/23 documented as of this encounter
--- OUTSIDE RECORDS SUMMARY | 2025-02-11 11:22 | XMS_ITS | Encounter Summary ---
Author Organization [facility] Address [address] [place] [address] Care Team Providers Care Hazardous Materials Waste Technician Name Role Phone Yuriy Martins MD Primary Care Provider [phone] Essie Ryan BEEF SPLITTER Unavailable [phone] Essie Ryan BEEF SPLITTER Unavailable [phone] Yuriy Martins MD Primary Care Provider [phone] Encounter Details Date Type Department Care Team [...] declined 06/14/2023 How often do you attend advent or christianity serv ices? Patient declined 06/14/2023 Do you belong to any clubs o r organizations such as advent groups, unions, fraternal or athletic groups, or [...] Recorded Patient Health Questionnaire-2 Score 0 11/08/2023 [facility] [...] EDT Narrative 03/27/2024 3:37 PM EDT The [address] [address] Magnetic Resonance Report Signed Patient: STACEY SAHU MR#: [id number] : 1975 Acct:[id number] Age/Sex: 48 / F ADM Date: 03/26/24 Loc: MRI Attending Dr: Non-Staff Physician Andre Ordering Physician: PhysicianNonAndrewStaff Andre Date of Service: 03/26/24 Procedure(s): MR hip RT wo con Accession Number(s): [id number] cc: Essie Ryan NP; Physician,Non-Staff Andre [place] [id number] Patient Name: STACEY SAHU MRN: [id number] date: 1975 Sex: F Assigned Patient Location: MRI Current Patient Location: Accession/Order Number: [id number] Exam Date: 03/26/2024 14:05 Report Date: 03/27/2024 [...] sacroiliac joint is seen. On the large iyiah-kn-gvrd images of the pelvis there appear to [...] the right acetabulum. 4. 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 Electronically authenticated by: HARPER VELASQUEZ Date: 03/27/2024 15:34 Dictated By: Harper Velasquez M.D. Signed By: 03/27/24 1537 DD/ 1534 TD/TT: Software Support Engineer: Procedure Note Radiology, Radiologist, MD - 03/27/2024 [place] [address] Magnetic Resonance Report Signed Patient: STACEY SAHU AMR#: [id number] : 1975Acct:[id number] Age/Sex: 48 / FADM Date: 03/26/24 Loc: MRI Attending Dr: Diandra-Staff Physician Powell Ordering Physician: Ilia Reno M.D. Date of Service: 03/26/24 Procedure(s): MR hip RT wo con Accession Number(s): [id number] cc: Essie Ryan BEEF SPLITTER; Ilia Reno M.D. The [place] [address] Patient Name: STACEY SAHU MRN: [id number] date: 1975 Sex: F Assigned Patient Location: MRI Current Patient Location: Accession/Order Number: [id number] Exam Date: 03/26/2024 14:05 Report Date: 03/27/2024 [...] left sacroiliac joint is seen. Onthe large avojh-ma-djrf images of the pelvis there appear to [...] the right acetabulum. 4. 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 Electronically authenticated by: HARPER VELASQUEZ Date: 03/27/2024 15:34 Dictated By: Harper Velasquez M.D. Signed By:03/27/24 1537 DD/ 1534 TD/TT: Software Support Engineer: us Generic External Data Provider [facility] Final Result documented in this encounter Visit Diagnoses Not on filedocumented in this encounter Care Teams Hazardous Materials Waste Technician Relationship Specialty Start Date End Date Yuriy Martins MD [address] [place] [address] PCP - General Family Medicine 08/17/23 04/09/24 Essie Ryan NP [address] [place] [address] PCP - [facility] 12/25/23 Yuriy Mratins MD [address] [place] [address] PCP - General Family Medicine 05/29/24 Essie Ryan NP [address] [place] [address] Nurse Practitioner Family Medicine 08/17/23 documented as of this encounter
--- OUTSIDE RECORDS SUMMARY | 2025-02-11 11:22 | XMS_ITS | Encounter Summary ---
Author Organization [facility] Address [address] [place] [address] Care Team Providers Care Department Traffic Freight Router Name Role Phone Unallocated, Noms Provider Primary Care Provi singh Yuriy Martins MD Primary Care Provider [phone] Essie Ryan GROUP SALES MANAGER Unavailable [phone] Essie Ryan NP Unavailable [phone] Yuriy Martins MD Primary Care Provider [phone] Encounter Details Date Type Department Care Team (Late st Contact Info) Description 08/16/2023 Clinisync Result Encounter [facility] External Department Unsolicited Essie Ryan, NETO [address] [place] [address] Social History Tobacco Use Types Packs/Day Years [...] declined 06/14/2023 How often do you attend pentecostalism or rastafari serv ices? Patient declined 06/14/2023 Do you belong to any clubs o r organizations such as pentecostalism groups, unions, fraternal or athletic groups, or [...] Recorded Patient Health Questionnaire-2 Score 2 07/13/2023 [facility] ional Health - Occupational [...] place to sleep or slept in a long term (including now)? No 06/14/2023 Comments Unknown Sex [...] AM EST Narrative 08/16/2023 8:48 [place] [address] CT Scan Report Signed Patient: STACEY SAHU MR#: [id number] : 1975 Acct:[id number] Age/Sex: 48 / F ADM Date: 08/16/23 Loc: MAMMO Attending Dr: Essie Ryan NP Ordering Physician: Aichholz,Essie GROUP SALES MANAGER Date of Service: 08/16/23 Procedure(s): CT sinus wo con Accession Number(s): [id number] cc: Essie Ryan NP The [place] [id number] Patient Name: STACEY SAHU MRN: [id number] date: 1975 Sex: F Assigned Patient Location: MAMMO Current Patient Location: [facility] Accession/Order Number: [id number] Exam Date: 08/16/2023 07:40 Report Date: 08/16/2023 [...] Dictated By: Dawson Gross M.D. Signed By: 08/16/2348 DD/ 5 TD/TT: Nuclear Fuel Enrichment Technician: Procedure Note Radiology, Radiologist, MD - 08/16/2023 [place] [address] CT Scan Report Signed Patient: STACEY SAHU AMR#: [id number] : 1975Acct:[id number] Age/Sex: 48 / FADM Date: 08/16/23 Loc: MAMMO Attending Dr: Essie Ryan NP Ordering Physician: Essie Ryan NP Date of Service: 08/16/23 Procedure(s): CT sinus wo con Accession Number(s): [id number] cc: Essie Ryan NP [place] [id number] Patient Name: STACEY SAHU MRN: [id number] date: 1975 Sex: F Assigned Patient Location: [facility] Current Patient Location: [facility] Accession/Order Number: [id number] Exam Date: 08/16/2023 07:40 Report Date: 08/16/2023 [...] By: Dawson Gross M.D. Signed By:08/16/2348 DD/ 5 TD/TT: Nuclear Fuel Enrichment Technician: Essie Aichholz GROUP SALES MANAGER [facility] Final Result documented in this encounter Visit Diagnoses Not on filedocumented in this encounter Care Teams Department Traffic Freight Router Relationship Specialty Start Date End Date Unallocated, Noms Alex, [place] [address] PCP - General Family Medicine 07/17/23 08/16/23 Yuriy Martins MD [address] [place] [address] PCP - General Family Medicine 08/17/23 04/09/24 Essie Ryan NP [address] [place] [address] PCP - [facility] 12/25/23 Yuriy Martins MD [address] [place] [address] PCP - General Family Medicine 05/29/24 Essie Ryan NP [address] [place] [address] Nurse Practitioner Family Medicine 08/17/23 documented as of this encounter
--- OUTSIDE RECORDS SUMMARY | 2025-02-11 11:22 | XMS_ITS | Encounter Summary ---
Author Organization [facility] Address [address] [place], [place] [address] Care Team Providers Care Guide Name Role Phone CharliEssie ha Fely BAH Primary Care Provider [phone] Adán Torres DO Unavailable [phone] Dany ARDON MD, [facility] Unavailable + Angel Delgado DO Unavailable [phone] Source Comments In the event this information is protected by the Federal Confidentiality of Alcohol and Drug AbusePatient Records regulations: The Federal rules restrict any use of the information to criminally investigate or prosecute any alcohol or drug abuse patient.[facility] Reason for Visit * Reason Comments new order Encounter Details Date Type Department Care Team (Late st Contact Info) Description 06/24/2024 Telephone Internal Medicine [place] [address] [place] [address] Yanni Spring MD [address] [place] [address] new order Social History Tobacco Use Types [...] is lower risk 9 03/15/2024 Data from: https://www.neighborhoodatlas.medicine.[facility]/. Last address used for calculation [address] [...] 1:10 PM EDMeg Mari i, RN * Are you blind or do you have serious difficulty seeing, even when wearing glasses? Answer Date of Assessment Author No 12/16/2020 1:10 PM EDMeg Mari i, RN * Do you have serious [...] wet signature and mobilty dx code. Fax- [id number] documented in this encounter Plan of Treatment Not on file documented as of this encounter Visit Diagnoses Not on filedocumented in this encounter Care Teams Guide Relationship Specialty Start Date End Date Essie Ryan, INCOME TAX CONSULTANT PCP - General Family Medicine 07/22/16 Adán Torres DO Obstetrics 07/22/16 Alexis Saenz II, MD [address] [facility] [place] [address] Referring Orthopedics 12/13/21 [place] [address] [place] [address] Referring Orthopedics 03/08/24 documented as of this encounter
--- OUTSIDE RECORDS SUMMARY | 2025-02-11 11:22 | XMS_ITS | Encounter Summary ---
Author Organization [facility] Address [address] [place] [address] Care Team Providers Care Medical Imaging Director Name Role Phone Yuriy Martins MD Primary Care Provider [phone] Essie Ryan GLOVE CLEANER Unavailable [phone] Essie Ryan GLOVE CLEANER Unavailable [phone] Yuriy Martins MD Primary Care Provider [phone] Reason for Visit * Reason Comments Med Refill Encounter Details Date Type Department Care Team (Late st Contact Info) Description 09/08/2023 Refill [facility] [address] [place] [address] Essie Ryan, GLOVE CLEANER [address] [place] [address] Mixed hyperlipidemia (Primary Dx) Social History Tobacco Use Types [...] How often do you attend hindu or taoism serv ices? Patient declined 06/14/2023 Do you [...] Recorded Patient Health Questionnaire-2 Score 2 07/13/2023 [facility] ional Health - Occupational [...] of this encounter Visit Diagnoses Diagnosis Mixed hyperlipidemia- Primary Mixed hyperlipidemia documented in this encounter Care Teams Medical Imaging Director Relationship Specialty Start Date End Date Yuriy Martins MD [address] [place] [address] PCP - General Family Medicine 08/17/23 04/09/24 Essie Ryan NP [address] [place] [address] PCP - [facility] 12/25/23 Yuriy Martins MD [address] [place] [address] PCP - General Family Medicine 05/29/24 Essie Ryan NP [address] [place] [address] Nurse Practitioner Family Medicine 08/17/23 documented as of this encounter
--- OUTSIDE RECORDS SUMMARY | 2025-02-11 11:22 | XMS_ITS | Encounter Summary ---
Author Organization [facility] Address [address] [place] [address] Care Team Providers Care Fountain Roller Assembler Name Role Phone Charlidilcia Essie HOUSE RN Unavailable Essie Ryan HOUSE RN Unavailable [phone] Yuriy Martins MD Primary Care Provider [phone] Encounter Details Date Type Department Care Team (Late st Contact Info) Description 01/10/2025 Orders Only [facility] [address] [place] [address] Unallocated, Noms Provider, [address] [place] [address] Social History Tobacco Use Types Packs/Day Years [...] week 08/28/2024 How often do you attend jainism or judaism serv ices? Never 08/28/2024 Do you belong to any clubs o r organizations such as jainism groups, unions, fraternal or athletic groups, or [...] Questionnaire-2 Score 0 11/08/2023 [facility] - Occupational Stress Questionnaire [...] in a halfway (including now)? No 06/14/2023 Housing Stability Vital Sign Answer Williams e Recorded In the last 12 months, was t here a time when you were not able to pay the mortgage or rent on time? No 08/28/2024 In the past 12 months, how m any times have you moved where you were living? 0 08/28/2024 At any time in the past 12 m [facility], were you homeless or living in a halfway (including now)? No 08/28/2024 Comments Unknown Sex [...] Comments XR HIP 2 OR 3 VW LEFT Routine 10/09/2024 11:16 AM EDT XR HIP 2-3 VIEWS RIGHT + PELVIS Routine 07/30/2024 11:11 AM EST documented in this encounter Results * XR hip left 2 or 3 views (10/09/2024 11:16 AM EDT) Anatomical Region Laterality Modality Lower Extremities, Hip Left Radiograp hic Imaging us Noms Provider Unallocated MD IMG XR PROCEDURES F inal Result * XR HIP 2-3 VIEWS RIGHT + PELVIS (07/30/2024 11:11 AM EST) Anatomical Region Laterality Modality Radiographic Francheska ging us Noms Provider Unallocated MD IMG XR PROCEDURES F inal Result documented in this encounter Visit Diagnoses Not on filedocumented in this encounter Care Teams Fountain Roller Assembler Relationship Specialty Start Date End Date Essie Ryan NP [address] [place] [address] PCP - [facility] 12/25/23 Yuriy Martins MD [address] [place] [address] PCP - General Family Medicine 05/29/24 Essie Ryan NP [address] [place] [address] Nurse Practitioner Family Medicine 08/17/23 documented as of this encounter
--- OUTSIDE RECORDS SUMMARY | 2025-02-11 11:22 | XMS_ITS | Encounter Summary ---
Author Organization [facility] Address [address] [place] [address] Care Team Providers Care Collet Gluer Name Role Phone Yuriy Martins MD Primary Care Provider [phone] Unallocated, Noms Provider Primary Care Provi singh Yuriy Martins MD Primary Care Provider [phone] Essie Ryan CHIEF FISHERY DIVISION Unavailable [phone] Essie Ryan CHIEF FISHERY DIVISION Unavailable [phone] Yuryi Martins MD Primary Care Provider [phone] Encounter Details Date Type Department Care Team (Late st Contact Info) Description 07/13/2023 Abstract [facility] [address] [place] [address] Essie Ryan CHIEF FISHERY DIVISION [address] [place] [address] Social History Tobacco Use Types Packs/Day Years [...] declined 06/14/2023 How often do you attend jainism or orthodoxy serv ices? Patient declined 06/14/2023 Do you [...] Recorded Patient Health Questionnaire-2 Score 2 07/13/2023 [facility] Occupat ional Health - Occupational Stress [...] on filedocumented in this encounter Care Teams Collet Gluer Relationship Specialty Start Date End Date Yuriy Martins MD PCP - General Cardiology 11/29/22 07/16/23 Unallocated, Noms MD Alex [address] [place] [address] PCP - General Family Medicine 07/17/23 08/16/23 Yuriy Martins MD [address] [place] [address] PCP - General Family Medicine 08/17/23 04/09/24 Essie Ryan NP [address] [place] [address] PCP - [facility] 12/25/23 Yuriy Martins MD [address] [place] [address] PCP - General Family Medicine 05/29/24 Essie Ryan NP [address] [place] [address] Nurse Practitioner Family Medicine 08/17/23 documented as of this encounter
--- OUTSIDE RECORDS SUMMARY | 2025-02-11 11:22 | XMS_ITS | Encounter Summary ---
Author Organization [facility] Address [address] [place] [address] Care Team Providers Care Human Factors Engineer Name Role Phone Yuriy Martins MD Primary Care Provider [phone] Essie Ryan NP Unavailable [phone] Essie Ryan NP Unavailable [phone] Yuriy Martins MD Primary Care Provider [phone] Encounter Details Date Type Department Care Team (Late st Contact Info) Description 11/10/2023 Orders Only [facility] [address] [place] [address] Essie Ryan NP [address] [place] [address] Social History Tobacco Use Types Packs/Day Years [...] How often do you attend taoist or sabianism serv ices? Patient declined 06/14/2023 [...] Patient Health Questionnaire-2 Score 0 11/08/2023 [facility] of Occupat ional Health [...] Foot Left Radiogra phic Imaging Essie Ryan NP IMG XR PROCEDURES Final Result * XR foot 3+ views left (11/08/2023 12:09 PM EDT) Anatomical Region Laterality Modality Lower Extremities, Foot Left Radiogra phic Imaging us Essie Ryan NP IMG XR PROCEDURES Final Result documented in this encounter Visit Diagnoses Not on filedocumented in this encounter Care Teams Human Factors Engineer Relationship Specialty Start Date End Date Yuriy Martins MD [address] [place] [address] PCP - General Family Medicine 08/17/23 04/09/24 Essie Ryan NP [address] [place] [address] PCP - [facility] 12/25/23 Yuriy Martins MD [address] [place] [address] PCP - General Family Medicine 05/29/24 Essie Ryan NP [address] [place] [address] Nurse Practitioner Family Medicine 08/17/23 documented as of this encounter
--- OUTSIDE RECORDS SUMMARY | 2025-02-11 11:22 | XMS_ITS | Encounter Summary ---
Author Organization [facility] Address [address] [place] [address] Care Team Providers Care Certified Court/Medical Interpreter Name Role Phone Yuriy Martins MD Primary Care Provider [phone] Unallocated, Noms Provider Primary Care Provi singh Yuriy Martins MD Primary Care Provider [phone] AicEssie ha SAFETY LEADER Unavailable [phone] Essie Ryan NP Unavailable [phone] Yuriy Martins MD Primary Care Provider [phone] Encounter Details Date Type Department Care Team [...] AM EST Narrative 05/25/2023 10:00 [place] [address] XRay Report Signed Patient: STACEY SAHU MR#: [id number] : 1975 Acct:[id number] Age/Sex: 47 / F ADM Date: 05/24/23 Loc: [facility] Attending Dr: Nadir ONEILL Ordering Physician: Nadir Dominguez Date of Service: 05/24/23 Procedure(s): XR abdomen 1V Accession Number(s): [id number] cc: Essie Ryan SAFETY LEADER; Nadir Dominguez The [place] [id number] Patient Name: STACEY SAHU MRN: [id number] date: 1975 Sex: F Assigned Patient Location: [facility] Current Patient Location: Accession/Order Number: [id number] Exam Date: 05/24/2023 16:36 Report Date: 05/25/2023 10:00 At the request of: NADIR DOMINGUEZ Procedure: XR abdomen 1V EXAM: XR abdomen 1V HISTORY: Kidney stone COMPARISON: None. TECHNIQUE: AP view of the abdomen. FINDINGS: Nonobstructive bowel gas pattern is noted. There is no suspicious calcification. The osseous structures are intact. XR/XR abdomen 1V IMPRESSION: Nonobstructive bowel gas pattern. Constipation. Electronically authenticated by: DENZEL CONROY Date: 05/25/2023 10:00 Dictated By: Denzel Conroy M.D. Signed By: 05/25/23 1002 DD/ 1000 TD/TT: Drag Out Worker: Procedure Note Radiology, Radiologist, MD - 05/25/2023 The [place] [id number] XRay Report Signed Patient: STACEY SAHU AMR#: [id number] : 1975Acct:[id number] Age/Sex: 47 / FADM Date: 05/24/23 Loc: RAD Attending Dr: Nadir ONEILL Ordering Physician: Nadir Dominguez Date of Service: 05/24/23 Procedure(s): XR abdomen 1V Accession Number(s): [id number] cc: Essie Ryan SAFETY LEADER; Nadir Dominguez [address] [address] Patient Name: STACEY SAHU MRN: [id number] date: 1975 Sex: F Assigned Patient Location: [facility] Current Patient Location: Accession/Order Number: [id number] Exam Date: 05/24/2023 16:36 Report Date: 05/25/2023 10:00 At the request of: NADIR DOMINGUEZ Procedure: XR abdomen 1V EXAM: XR abdomen 1V HISTORY: Kidney stone COMPARISON: None. TECHNIQUE: AP view of the abdomen. FINDINGS: Nonobstructive bowel gas pattern is noted. There is no suspicious calcification. The osseous structures are intact. XR/XR abdomen 1V IMPRESSION: Nonobstructive bowel gas pattern. Constipation. Electronically authenticated by: DENZEL CONROY Date: 05/25/2023 10:00 Dictated By: Denzel Conroy M.D. Signed By:05/25/23 1002 DD/ 1000 TD/TT: Drag Out Worker: us Generic External Data Provider [facility] Final Result documented in this encounter Visit Diagnoses Not on filedocumented in this encounter Care Teams Certified Court/Medical Interpreter Relationship Specialty Start Date End Date Yuriy Martins MD PCP - General Cardiology 11/29/22 07/16/23 Unallocated, Noms MD Alex [address] [place] [address] PCP - General Family Medicine 07/17/23 08/16/23 Yuriy Martins MD [address] [place] [address] PCP - General Family Medicine 08/17/23 04/09/24 Essie Ryan NP [address] [place] [address] PCP - [facility] 12/25/23 Yuriy Martins MD [address] [place] [address] PCP - General Family Medicine 05/29/24 Essie Ryan NP [address] [place] [address] Nurse Practitioner Family Medicine 08/17/23 documented as of this encounter
--- OUTSIDE RECORDS SUMMARY | 2025-02-11 11:23 | XMS_ITS | Encounter Summary ---
Author Organization [facility] Address [id number] [address] [place] [address] Care Team Providers Care Equipment Coordinator Name Role Phone CharliEssie ha Magdaleno STYLIST APPRENTICE-CURATOR MEDICAL MUSEUM Primary Care Provider Encounter Details Date Type Department Care Team (Late st Contact Info) Description 03/12/2024 Orders Only [facility] [address] [place] [address] External, Scanning Provider Social History [...] on filedocumented in this encounter Care Teams Equipment Coordinator Relationship Specialty Start Date End Date Essie Ryan, STYLIST APPRENTICE-CURATOR MEDICAL MUSEUM PCP - General Nurse Practitioner 10/03/18 documented as of this encounter
--- OUTSIDE RECORDS SUMMARY | 2025-02-11 11:23 | XMS_ITS | Clinical Summary ---
Author Organization [facility] Address [address] [place] [address] Care Team Providers Care Seed Core Operator Name Role Phone Essie Ryan MD Primary Care Provider [phone] Allergies Active Allergy Reactions Criticality Noted Date Comments Penicillins Other,Unknown Medium 06/13/2014 As a child Medications omeprazole (PriLOSEC) [address] capsule Take 40 mg by mouth in the morning. 3 Active busPIRone (Buspar) 7.5 mg tablet Take 7.5 mg by mouth twice a day. 3 Active cetirizine (ZyrTEC) 10 mg tablet Take 10 mg by mouth if needed. 4 Active ibuprofen 800 mg tablet Take 800 mg by mouth every 6 (six) hours if needed. 2 Active meloxicam (Mobic) 15 mg tablet Take 15 mg by mouth in the morning. 2 Active tamsulosin (Flomax) 0.4 mg 24 hr capsule Take 1 tablet by mouth if needed. 4 Active dilTIAZem CD (Cardizem CD) 120 mg 24 hr capsuleIndications: Benign hypertensive heart disease without heart failure,Palpitation s,PAC (premature atrial contraction),PVC (premature ventricular contraction) Take 1 capsule (120 mg) by mouth in the morning. 30 capsule 11 5 10/04/19 26 Active atorvastatin (Lipitor) 40 mg tabletIndications:M ixed hyperlipidemia Take 1 tablet (40 mg) by mouth in the morning. 5 04/16/20 26 Active ARIPiprazole (Abilify) 30 mg tablet Take 30 mg by mouth in the morning. Active losartan (Cozaar) 100 mg tabletIndications:P rimary hypertension Take 1 tablet (100 mg) by mouth in the morning. 90 tablet 3 5 11/12/19 26 Active Active Problems Problem Noted Date Diagnosed [...] Care Team Description 11/15/2024 Telephone [facility] [address] [place] [address] Javid Martínez, [facility] Sleep Study; Referral 11/11/2024 10:30 AM EDT Office Visit [facility] [address] [place] [address] Milo Moran MD Primary hypertension (Primary Dx); Preop cardiovascular exam; Mixed hyperlipidemia; PAC (premature atrial contraction); PVC (premature ventricular contraction) from Last 3 Months Immunizations Immunization Administration [...] Physically or Sexually Abused Not on file Comments Unknown Sex and Gender Information Value Date Recorded Sex Assigned at Not on file Legal Sex Female 9:22 PM EDT Gender Identity Not on file [...] 11/11/2024 11:10 AM EDT Plan of Treatment Upcoming Encounters Date Type Department Care Team (Late st Contact Info) Description 03/20/2025 1:00 PM EDT Office Visit [facility] [address] [place] [address] [place] [address] Bonifacio Cisneros MD [address] [place] [address] Health Maintenance Due Date Last Done Comments CT Colonography 1975 FIT-DNA 1975 FIT 1975 FOBT 1975 Sigmoidoscopy 1975 Depression Screening 1988 Hepatitis B Vaccines (1 of 3 - 19+ 3-dose series) 1995 Pap Smear 1997 Adult Tetanus 1998 Cervical Cancer Screening 2006 HPV/Cotest 2006 Mammogram 2016 COVID-19 Vaccine ( - 2023-2 5 season) 2024 Influenza Vaccine (#1) 2025 05/03/2012 Zoster Vaccines (1 of 2) 2026 Colonoscopy [...] on patient's age to complete this topic Insurance [employer] Care Teams Seed Core Operator Relationship Specialty Start Date End Date Essie Ryan MD [address] [place] [address] PCP - General 08/29/23
--- OUTSIDE RECORDS SUMMARY | 2025-02-11 11:23 | XMS_ITS | Encounter Summary ---
Author Organization [facility] Address [address] [place], [place] [address] Care Team Providers Care Cellophane Casting Machine Repairer Name Role Phone CharliEssie ha Fely BAH Primary Care Provider [phone] Adán Torres DO Unavailable [phone] Dany ARDON MD, [facility] Unavailable + Angel Delgado DO Unavailable [phone] Source Comments In the event this information is protected by the Federal Confidentiality of Alcohol and Drug AbusePatient Records regulations: The Federal rules restrict any use of the information to criminally investigate or prosecute any alcohol or drug abuse patient.[facility] Encounter Details Date Type Department Care Team (Late st Contact Info) Description 09/30/2024 Patient Msg Orthopaedics [address] [place], [place] [id number] Yanni Spring MD [address] [place] [address] Appointment Request Social History Tobacco Use Types Packs/Day Years Used Date Smoking Tobacco: Never Smokeless Tobacco: Never Alcohol Use Standard Drinks/Week Comments No 0 (1 standard drink = 0.6 oz pur e alcohol) [facility] Utilities Answer Date Recorded In the [...] any time in the past 12 m [facility], were you homeless or living in a prison (including now)? No 07/01/2024 Area Deprivation Index Answer Date Erik rded National Score (1-100), lower number is lower ri sk 93 03/15/2024 State Score (1-10), lower number is lower risk 9 03/15/2024 Data from: https://www.neighborhoodatlas.medicine.[facility].edu/. Last address used for calculation [address] [...] on filedocumented in this encounter Care Teams Cellophane Casting Machine Repairer Relationship Specialty Start Date End Date Essie Ryan CNP PCP - General Family Medicine 07/22/16 Adán Torres DO Obstetrics 07/22/16 Alexis Saenz II, MD [address] [place] [address] Referring Orthopedics 12/13/21 Angel Delgado DO [address] [place] [address] Referring Orthopedics 03/08/24 documented as of this encounter
--- OUTSIDE RECORDS SUMMARY | 2025-02-11 11:23 | XMS_ITS | Encounter Summary ---
Author Organization [facility] Address [facility] [place] [address] Care Team Providers Care Cabinet Finisher Name Role Phone CharliandersonaraceliAlemkandi Geiger CNP Primary Care Provider [phone] Adán Torres DO Unavailable [phone] Dany ARDON MD, [facility] Unavailable + Angel Delgado DO Unavailable [phone] Source Comments In the event this information is protected by the Federal Confidentiality of Alcohol and Drug AbusePatient Records regulations: The Federal rules restrict any use of the information to criminally investigate or prosecute any alcohol or drug abuse patient.[facility] Encounter Details Date Type Department Care Team (Late st Contact Info) Description 07/31/2023 Patient [facility] Internal Medicine [address] [place] [place] [address] Provider, Meeta IBD VIRTUAL EDUCATION for [...] N ot on file 07/24/2022 Data from: https://www.neighborhoodatlas.medicine.[facility]/. Last address used for calculation [...] on filedocumented in this encounter Care Teams Cabinet Finisher Relationship Specialty Start Date End Date Essie Ryan, AIRCRAFT LINE ASSEMBLER PCP - General Family Medicine 07/22/16 Adán Torres DO Obstetrics 07/22/16 Alexis Saenz II, MD [address] [place], [place] [address] Referring Orthopedics 12/13/21 Angel Delgado DO [facility] [place] [address] Referring Orthopedics 03/08/24 documented as of this encounter
--- OUTSIDE RECORDS SUMMARY | 2025-02-11 11:23 | XMS_ITS | Encounter Summary ---
Author Organization [facility] Address [address] [place], [place] [address] Care Team Providers Care Paper Mill Manager Name Role Phone Charlimataishwarya Essie Geiger CNP Primary Care Provider [phone] Adán Torres DO Unavailable [phone] Dany ARDON MD, [facility] Unavailable + Angel Delgado DO Unavailable [phone] Source Comments In the event this information is protected by the Federal Confidentiality of Alcohol and Drug AbusePatient Records regulations: The Federal rules restrict any use of the information to criminally investigate or prosecute any alcohol or drug abuse patient.[facility] Encounter Details Date Type Department Care Team (Late st Contact Info) Description 05/24/2024 Patient Msg Pre Anesthesia [address] [place] [address] Provider, [facility] Appointment Social [...] risk 9 03/15/2024 Data from: https://www.neighborhoodatlas.medicine.[facility]/. Last address used for calculation [address] [...] filedocumented in this encounter Care Teams Paper Mill Manager Relationship Specialty Start Date End Date Essie Ryan CNP PCP - General Family Medicine 1/27/17 Adán Torres DO Obstetrics 07/22/16 Alexis Saenz II, MD [address] [place] [address] Referring Orthopedics 12/13/21 Angel Delgado DO [address] [place] [address] Referring Orthopedics 03/08/24 documented as of this encounter
--- OUTSIDE RECORDS SUMMARY | 2025-02-11 11:23 | XMS_ITS | Encounter Summary ---
Author Organization [facility] Address [address] [place], [place] [address] Care Team Providers Care Rn Pain Management Name Role Phone CharliEssie ha Fely BAH Primary Care Provider [phone] Adán Torres DO Unavailable [phone] Dany ARDON MD, [facility] Unavailable + Angel Delgado DO Unavailable [phone] Source Comments In the event this information is protected by the Federal Confidentiality of Alcohol and Drug AbusePatient Records regulations: The Federal rules restrict any use of the information to criminally investigate or prosecute any alcohol or drug abuse patient.[facility] Encounter Details Date Type Department Care Team (Late st Contact Info) Description 09/30/2024 Patient Msg Orthopaedics [address] [place], [place] [id number] Yanni Spring MD [address] [place] [address] Appointment Request Social History Tobacco Use Types Packs/Day Years Used Date Smoking Tobacco: Never Smokeless Tobacco: Never Alcohol Use Standard Drinks/Week Comments No 0 (1 standard drink = 0.6 oz pur e alcohol) [facility] Utilities Answer Date Recorded In the [...] any time in the past 12 m [facility], were you homeless or living in a longterm (including now)? No 07/01/2024 Area Deprivation Index Answer Date Erik rded National Score (1-100), lower number is lower ri sk 93 03/15/2024 State Score (1-10), lower number is lower risk 9 03/15/2024 Data from: https://www.neighborhoodatlas.medicine.[facility].edu/. Last address used for calculation [...] filedocumented in this encounter Care Teams Rn Pain Management Relationship Specialty Start Date End Date Essie Ryan CNP PCP - General Family Medicine 07/22/16 Adán Torres DO Obstetrics 07/22/16 Alexis Saenz II, MD [address] [place] [address] Referring Orthopedics 12/13/21 Angel Delgado DO [address] [place] [address] Referring Orthopedics 03/08/24 documented as of this encounter
--- OUTSIDE RECORDS SUMMARY | 2025-02-11 11:23 | XMS_ITS | Encounter Summary ---
Author Organization [facility] Address [address] [place] [address] Care Team Providers Care English Language Learner Tutor Name Role Phone Yuriy Martins MD Primary Care Provider [phone] Unallocated, Noms Provider Primary Care Provi singh Yuriy Martins MD Primary Care Provider [phone] AicEssie ha CUSTOMER SERVICE ANALYST Unavailable [phone] Essie Ryan CUSTOMER SERVICE ANALYST Unavailable [phone] Yuriy Martins MD Primary Care Provider [phone] Encounter Details Date Type Department Care Team (Late st Contact Info) Description 03/24/2021 [facility] [address] [place] [address] Zarina Clarke, [facility] [address] [place] [address] Social History Tobacco Use Types Packs/Day Years Used Date Smoking Tobacco: Never Assessed Comments Unknown Sex and Gender Information Value Date Recorded Sex Assigned at Not on file Legal Sex Female 7:01 PM EDT Gender Identity Not on file Sexual Orientation Not on file documented as of this encounter Plan of Treatment Not on file documented as of this encounter Visit Diagnoses Not on filedocumented in this encounter Care Teams English Language Learner Tutor Relationship Specialty Start Date End Date Yuriy Martins MD PCP - General Cardiology 11/29/22 07/16/23 Unallocated, Noms MD Alex [address] [place] [address] PCP - General Family Medicine 07/17/23 08/16/23 Yuriy Martins MD [address] [place] [address] PCP - General Family Medicine 08/17/23 04/09/24 Essie Ryan NP [address] [place] [address] PCP - [facility] 12/25/23 Yuriy Martins MD [address] [place] [address] PCP - General Family Medicine 05/29/24 Essie Ryan NP [address] [place] [address] Nurse Practitioner Family Medicine 08/17/23 documented as of this encounter
--- OUTSIDE RECORDS SUMMARY | 2025-02-11 11:23 | XMS_ITS | Encounter Summary ---
Author Organization [facility] Address [address] [place], [place] [address] Care Team Providers Care Disease Case Manager Rn Name Role Phone CharliEssie ha Fely BAH Primary Care Provider [phone] Adán Torres DO Unavailable [phone] Dany ARDON MD, [facility] Unavailable + Angel Delgado DO Unavailable [phone] Source Comments In the event this information is protected by the Federal Confidentiality of Alcohol and Drug AbusePatient Records regulations: The Federal rules restrict any use of the information to criminally investigate or prosecute any alcohol or drug abuse patient.[facility] Encounter Details Date Type Department Care Team (Late st Contact Info) Description 09/17/2024 Get Medical Advice Orthopaedics [address] [place], [place] [phone] Yanni Spring MD [address] [place] [address] Medicine Social History Tobacco Use Types Packs/Day Years Used Date Smoking Tobacco: Never Smokeless Tobacco: Never Alcohol Use Standard Drinks/Week Comments No 0 (1 standard drink = 0.6 oz pur e alcohol) [facility] Utilities Answer Date Recorded In the [...] any time in the past [address] [facility] [place], were you homeless or living in a prison (including now)? No 07/01/2024 Area Deprivation Index Answer Date Erik rded National Score (1-100), lower number is lower ri sk 93 03/15/2024 State Score (1-10), lower number is lower risk 9 03/15/2024 Data from: https://www.neighborhoodatlas.medicine.[facility].edu/. Last address used for calculation [...] on filedocumented in this encounter Care Teams Disease Case Manager Rn Relationship Specialty Start Date End Date Essie Ryan CNP PCP - General Family Medicine 07/22/16 Adán Torres DO Obstetrics 07/22/16 Alexis Saenz II, MD [address] [place] [address] Referring Orthopedics 12/13/21 Angel Delgado DO [address] [place] [address] Referring Orthopedics 03/08/24 documented as of this encounter
--- OUTSIDE RECORDS SUMMARY | 2025-02-11 11:23 | XMS_ITS | Clinical Summary ---
Author Organization [facility] Address [id number] [address] [place] [address] Care Team Providers Care Bottling Machine Operator Name Role Phone Shelby Essie Dolan APRN-DISTRIBUTION CENTER ASSOCIATE Primary Care Provider Allergies Active Allergy Reactions [...] de mixed, severe, with psychotic features 08/19/2017 Immunizations No known immunizations Family History Medical [...] 09/06/2025 09/06/2024 Medical Devices Implanted Type Area Personal Care Aide Device Identifier Shelf Expiration Date Model / Serial / Lot Generator Nrstm - [id number] - [id number] Implanted:Qty: 1 on 08/22/2024 by Tevin Esquivel MD at [facility] Generator Right: Chest [employer] 03/18/2027 3028 / [id number] / NA Lead Ns Respiratory - [id number] - [id number] Implanted:Qty: 1 on 08/22/2024 by Tevin Esquivel MD at [facility] Implant Lead Right: Chest [employer] 03/15/2027 4340 / [id number] / NA Lead Nrstm Inspr 3 Elect Cuf Tnl Arnoldo Strl Lf - [id number] - [id number] Implanted:Qty: 1 on 08/22/2024 by Tevin Esquivel MD at [facility] Neuro Stimulator Right: Neck [employer] 10/06/2026 4063 / [id number] / NA Insurance [place] [address] [address] [facility] Care Teams Bottling Machine Operator Relationship Specialty Start Date End Date Essie Ryan APRN-DISTRIBUTION CENTER ASSOCIATE PCP - General Nurse Practitioner 10/03/18
--- OUTSIDE RECORDS SUMMARY | 2025-02-11 11:23 | XMS_ITS | Encounter Summary ---
Author Organization [facility] Address [address] [place], [place] [address] Care Team Providers Care Court Collections Officer Name Role Phone CharliEssie ha Fely BAH Primary Care Provider [phone] Adán Torres DO Unavailable [phone] Dany ARDON MD, [facility] Unavailable + Angel Delgado DO Unavailable [phone] Source Comments In the event this information is protected by the Federal Confidentiality of Alcohol and Drug AbusePatient Records regulations: The Federal rules restrict any use of the information to criminally investigate or prosecute any alcohol or drug abuse patient.[facility] Encounter Details Date Type Department Care Team (Late st Contact Info) Description 03/20/2024 Patient Msg Orthopaedic Surgery [facility] [address] [place] [address] Yanni Spring MD [address] [place], [place] [address] Appointment Request Social History Tobacco Use Types [...] is lower risk 9 03/15/2024 Data from: https://www.neighborhoodatlas.[facility]/. Last address used for calculation [address] [...] on filedocumented in this encounter Care Teams Court Collections Officer Relationship Specialty Start Date End Date Essie Ryan, ELECTRONICS INSTRUCTOR PCP - General Family Medicine 07/22/16 Adán Torres DO Obstetrics 07/22/16 Alexis Saenz II, MD [address] [place] [address] Referring Orthopedics 12/13/21 Angel Delgado DO [address] [place] [address] Referring Orthopedics 03/08/24 documented as of this encounter
--- OUTSIDE RECORDS SUMMARY | 2025-02-11 11:23 | XMS_ITS | Encounter Summary ---
Author Organization [employer] [facility] tem Address [id number] [address] [place] [address] Care Team Providers Care Pals Nurse Name Role Phone Essie Ryan APRN-[facility] Primary Care Provider Reason for Referral * Misc (Routine) - Pending Review Specialty Diagnoses / Procedures Referred By Contac t Referred To Contact Diagnoses NIRMALA (obstructive sleep apnea) Procedures Polysomnography 4 or more parameters with PAP titration Trinh Eduardo MD [address] [place] [address] [address] [place] [address] Phone: tel: fax: Referral ID Status Reason Start Date Expiration Date V isits Requested Visits Authorized [id number] Pending Review 10/30/2024 10/30/2025 1 1 Encounter Details Date Type Department Care Team (Late st Contact Info) Description 10/30/2024 Orders Only [facility], A Department of [address] [place] [address] Trinh Eduardo MD [address] [place] [address] [address] [place] [address] NIRMALA (obstructive sleep apnea) (Primary [...] (pediatric) documented in this encounter Care Teams Pals Nurse Relationship Specialty Start Date End Date Essie Ryan, DIRECTOR OF SERVICES-SOLE ROUGHER PCP - General Nurse Practitioner 10/03/18 documented as of this encounter
--- OUTSIDE RECORDS SUMMARY | 2025-02-11 11:23 | XMS_ITS | Encounter Summary ---
Author Organization [facility] Address [address] [place] [address] Care Team Providers Care Nurses' Association Executive Director Name Role Phone Charlimataishwarya Essie Geiger CNP Primary Care Provider [phone] Adán Torres DO Unavailable [phone] Dany ARDON MD, [facility] Unavailable + Angel Delgado DO Unavailable [phone] Source Comments In the event this information is protected by the Federal Confidentiality of Alcohol and Drug AbusePatient Records regulations: The Federal rules restrict any use of the information to criminally investigate or prosecute any alcohol or drug abuse patient.[facility] Encounter Details Date Type Department Care Team (Late st Contact Info) Description 06/17/2024 Patient Msg [facility] [address] [place] [address] Provider, [facility] Important Reminder for [...] lower risk 9 03/15/2024 Data from: https://www.neighborhoodatlas.medicine.[facility]/. Last address used for calculation [...] on filedocumented in this encounter Care Teams Nurses' Association Executive Director Relationship Specialty Start Date End Date Essie Ryan CNP PCP - General Family Medicine 07/22/16 Adán Torres DO Obstetrics 07/22/16 Alexis Saenz II, MD [address] [facility] [place] [address] Referring Orthopedics 12/13/21 Angel Delgado DO [facility] [place] [address] Referring Orthopedics 03/08/24 documented as of this encounter
--- OUTSIDE RECORDS SUMMARY | 2025-02-11 11:23 | XMS_ITS | Encounter Summary ---
Author Organization [facility] tem Address [id number] [address] [place] [address] Care Team Providers Care Coach Tour Driver Name Role Phone CharlimatsienaEssie charles Magdaleno CHUN-HEEL SANDER RUBBER Primary Care Provider Encounter Details Date Type Department Care Team (Late st Contact Info) Description 09/11/2023 Orders Only [facility] [address] [place] [phone] Ref Prov, [place] [address] Social History Tobacco Use Types Packs/Day Years [...] on filedocumented in this encounter Care Teams Coach Tour Driver Relationship Specialty Start Date End Date Essie Ryan, DELIVERY DRIVER/SUPERVISOR-HEEL SANDER RUBBER PCP - General Nurse Practitioner 10/03/18 documented as of this encounter
--- OUTSIDE RECORDS SUMMARY | 2025-02-11 11:23 | XMS_ITS | Encounter Summary ---
Author Organization [facility] Address [address] [place] [address] Care Team Providers Care Operation Specialist Name Role Phone Yuriy Martins MD Primary Care Provider [phone] Essie Ryan ASSISTANT COUNSEL Unavailable [phone] Essie Ryan ASSISTANT COUNSEL Unavailable [phone] Yuriy Martins MD Primary Care Provider [phone] Encounter Details Date Type Department Care Team (Late st Contact Info) Description 02/29/2024 Abstract [facility] [address] [place] [address] Essie Ryan NP [address] [place] [address] Social History Tobacco Use Types Packs/Day Years [...] How often do you attend anglican or orthodoxy serv ices? Patient declined 06/14/2023 [...] on filedocumented in this encounter Care Teams Operation Specialist Relationship Specialty Start Date End Date Yuriy Martins MD [address] [place] [phone] PCP - General Family Medicine 08/17/23 04/09/24 Essie Ryan NP [address] [place] [address] PCP - [facility] 12/25/23 Yuriy Martins MD [address] [place] [address] PCP - General Family Medicine 05/29/24 Essie Ryan NP [address] [place] [address] Nurse Practitioner Family Medicine 08/17/23 documented as of this encounter
--- OUTSIDE RECORDS SUMMARY | 2025-02-11 11:23 | XMS_ITS | Encounter Summary ---
Author Organization [facility] tem Address [id number] [address] [place] [address] Care Team Providers Care Peel Oven Tender Name Role Phone Essie Ryan APRN-MODEL MAKER PLASTER Primary Care Provider Encounter Details Date Type Department Care Team (Late st Contact Info) Description 05/01/2024 Telephone [facility] - [address] [place] [address] [place] [address] [place] [address] [address] [place] [address] Social History Tobacco Use Types Packs/Day Years [...] on filedocumented in this encounter Care Teams Peel Oven Tender Relationship Specialty Start Date End Date Essie Ryan, LAY-MODEL MAKER PLASTER PCP - General Nurse Practitioner 10/03/18 documented as of this encounter
--- OUTSIDE RECORDS SUMMARY | 2025-02-11 11:23 | XMS_ITS | Encounter Summary ---
Author Organization [facility] Address [address] [place], [place] [address] Care Team Providers Care Artificial Log Machine Operator Name Role Phone CharliEssie ha Fely BAH Primary Care Provider [phone] Adán Torres DO Unavailable [phone] Dany ARDON MD, [facility] Unavailable + Angel Delgado DO Unavailable [phone] Source Comments In the event this information is protected by the Federal Confidentiality of Alcohol and Drug AbusePatient Records regulations: The Federal rules restrict any use of the information to criminally investigate or prosecute any alcohol or drug abuse patient.[facility] Encounter Details Date Type Department Care Team (Late st Contact Info) Description 09/30/2024 [facility] [address] [place], [place] [phone] Yanni Spring MD [address] [place] [address] Visit Social History Tobacco Use Types Packs/Day Years Used Date Smoking Tobacco: Never Smokeless Tobacco: Never Alcohol Use Standard Drinks/Week Comments No 0 (1 standard drink = 0.6 oz pur e alcohol) [facility] Utilities Answer Date Recorded In the [...] on filedocumented in this encounter Care Teams Artificial Log Machine Operator Relationship Specialty Start Date End Date Essie Ryan CNP PCP - General Family Medicine 07/22/16 Adán Torres DO Obstetrics 07/22/16 Alexis Saenz II, MD [address] [place] [address] Referring Orthopedics 12/13/21 Angel Delgado DO [address] [place] [address] Referring Orthopedics 03/08/24 documented as of this encounter
--- OUTSIDE RECORDS SUMMARY | 2025-02-11 11:23 | XMS_ITS | Encounter Summary ---
Author Organization [facility] Address [address] [place], [place] [address] Care Team Providers Care Aviation Mechanic Name Role Phone CharliEssie ha Fely BAH Primary Care Provider [phone] Adán Torres DO Unavailable [phone] Dany ARDON MD, [facility] Unavailable + Angel Delgado DO Unavailable [phone] Source Comments In the event this information is protected by the Federal Confidentiality of Alcohol and Drug AbusePatient Records regulations: The Federal rules restrict any use of the information to criminally investigate or prosecute any alcohol or drug abuse patient.[facility] Encounter Details Date Type Department Care Team (Late st Contact Info) Description 08/20/2024 [facility] [address] [place], [place] [phone] Yanni Spring MD [address] [place] [address] Insurance Social History Tobacco Use Types Packs/Day Years Used Date Smoking Tobacco: Never Smokeless Tobacco: Never Alcohol Use Standard Drinks/Week Comments No 0 (1 standard drink = 0.6 oz pur e alcohol) [facility] Utilities Answer Date Recorded In [...] any time in the past 12 m [facility], were you homeless or living in a fci (including now)? No 07/01/2024 Area Deprivation Index Answer Date Erik rded National Score (1-100), lower number is lower ri sk 93 03/15/2024 State Score (1-10), lower number is lower risk 9 03/15/2024 Data from: https://www.neighborhoodatlas.medicine.[facility].edu/. Last address used for calculation [address] [...] on filedocumented in this encounter Care Teams Aviation Mechanic Relationship Specialty Start Date End Date Essie Ryan CNP PCP - General Family Medicine 07/22/16 Adán Torres DO Obstetrics 07/22/16 Alexis Saenz II, MD [address] [place] [address] Referring Orthopedics 12/13/21 Angel Delgado DO [address] [place] [address] Referring Orthopedics 03/08/24 documented as of this encounter
--- NOTE | 2025-02-11 11:29 | XR_ITS ---
The [address] [address] Patient Name: GAMAL FIGUEROA MRN: [id number] date: 1975 Sex: F Assigned Patient Location: [facility] Current Patient Location: [facility] Accession/Order Number: [id number] Exam Date: 02/11/2025 12:30 Report Date: 02/11/2025 12:36 At the request of: LYNN GARCIA MD Procedure: XR abdomen 1V Single view of abdomen COMPARISON: None HISTORY: Follow-up kidney stone THORAX: Lung bases unremarkable. FREE AIR: Supine position limits assessment BOWEL: No gaseous intestinal distention. STOOL: No significant stool RENAL STONES: Left nephrolithiasis measuring up to 4 mm. Right kidney obscured by stool. No visible stone. VASCULAR CALCIFICATIONS: Present SOFT TISSUE: Unremarkable BONES: Unremarkable POSTSURGICAL CHANGES: Right hip arthroplasty. Right abdominal surgical clips stable 3, ring-shaped radiopaque structures in the right lower abdomen. XR/XR abdomen 1V IMPRESSION: Left nephrolithiasis measuring up to 4 mm Impression dictated by: Vipin Iniguez M.D. 02/11/2025 12:36 PM Dictation Location: [place] [address] Electronically authenticated by: [id number] Y Date: 02/11/2025 12:36
--- OUTSIDE RECORDS SUMMARY | 2025-02-11 14:36 | XMS_ITS | CCD ---
Author Organization [facility] Care Team Providers Care Member Certification Manager Name Role Phone PHYSICIAN, DEFAULT Unavailable Unavailable PHYSICIAN, DEFAULT Unavailable Unavailable AICHHOLZ, ESSIE Unavailable Unavailable PHYSICIAN, DEFAULT Unavailable Unavailable PHYSICIAN, DEFAULT Unavailable Unavailable AICHHOLZ, ESSIE Unavailable Unavailable PHYSICIAN, DEFAULT Unavailable Unavailable PHYSICIAN, DEFAULT Unavailable Unavailable CHARLIHJACOB ESSIE Unavailable Unavailable Alexis Saenz II Unavailable [phone] Aichsienaz Essie BAH Primary Care Provider [phone] Adán Torres Unavailable Dany ARDON MD, Robert M Unavailable Adán Torres DO Unavailable ESSIE RYAN Primary Care Physician [phone] Aichholz Essie BAH Primary Care Provider Adán Torres DO Unavailable [phone] Dany ARDON MD, Robert M Unavailable CAN MONROE Attending Unavailable CAN MONROE Consulting Unavailable AICHHOLKamila, NIURKA ESSIE Primary Care Unavailable CAN MONROE Admitting Unavailable ANDREW ., DR MARKO Stafford Admitting Unavailable ANDREW ., DR MARKO Stafford Attending Unavailable AICHHOLZ, STRUCTURAL METAL WORKER ESSIE Primary Care Unavailable ARTURO VANEGAS Consulting Unavailable ANDREW ., DR MARKO Stafford Attending Unavailable MORALES ., DR MARKO Stafford Consulting Unavailable AICHHOLKamila, STRUCTURAL METAL WORKER ESSIE Primary Care Unavailable ANDREW ., DR MARKO Stafford Admitting Unavailable ADRIANNA JIMENEZ Attending Unavailable ADRIANNA JIMENEZ Consulting Unavailable ADRIANNA JIMENEZ Admitting Unavailable AICHHOLZ, STRUCTURAL METAL WORKER ESSIE Primary Care Unavailable PAULETTE PHIPPS Consulting Unavailable AICHHOLZ, [facility] Primary Care Unavailable GARCIA ., DR BAILEY Attending Unavailable GARCIA ., DR BAILEY Consulting Unavailable GARCIA ., DR BAILEY Admitting Unavailable WEST, DR PAULETTE León Consulting Unavailable MORALES ., DR MARKO Stafford Admitting Unavailable MORALES ., DR MARKO Stafford Attending Unavailable MORALES ., DR MARKO Stafford Consulting Unavailable [facility], [facility] Primary Care Unavailable DELANEY ., ARTURO Consulting Unavailable MORALES ., DR MARKO Stafford Admitting Unavailable MORALES ., DR MARKO Stafford Attending Unavailable AICHOL, [facility] Primary Care Unavailable YOBANY ., DR RASMUSSEN Attending Unavailable AICHOLZ, [facility] Primary Care Unavailable YOBANY ., DR RASMUSSEN Admitting Unavailable WEST, DR PAULETTE León Consulting Unavailable YOBANY ., DR RASMUSSEN Consulting Unavailable [facility], [facility] Primary Care Unavailable GARCIA ., DR BAILEY Admitting Unavailable GARCIA ., DR BAILEY Attending Unavailable GARCIA ., DR BAILEY Consulting Unavailable ZIEBER, DR PREET Palafox Consulting Unavailable TIMMIS, DR RED Attending Unavailable TIMMIS, DR RED Consulting Unavailable TIMMIS, DR RED Admitting Unavailable AICHHOLZ, [facility] Primary Care Unavailable ZIEBER, DR PREET Palafox Consulting Unavailable TIMMIS, DR RED Attending Unavailable TIMMIS, DR RED Consulting Unavailable TIMMIS, DR RED Admitting Unavailable AICHHOLZ, [facility] Primary Care Unavailable ZIEBER, DR PREET Palafox Consulting Unavailable TIMMIS, DR RED Attending Unavailable TIMMIS, DR RED Consulting Unavailable AICHOLZ, [facility] Primary Care Unavailable TIMMIS, DR RED Admitting Unavailable WEST, DR PAULETTE León Consulting Unavailable AICHHOLZ, [facility] Primary Care Unavailable GARCIA ., DR BAILEY Attending Unavailable GARCIA ., DR BAILEY Consulting Unavailable GARCIA ., DR BAILEY Admitting Unavailable ZIEBER, DR PREET Palafox Consulting Unavailable LAKSHMIPATHY ., NARENDRANMONA Attending Marleni vailable AICHHOLZ, [facility] Primary Care Unavailable LAKSHMIPATHY ., BYRON Admitting Marleni vailable MORALES ., DR MARKO Stafford Admitting Unavailable MORALES ., DR MARKO Stafford Attending Unavailable MORALES ., DR MARKO Stafford Consulting Unavailable AICHOLZ, [facility] Primary Care Unavailable DELANEY ., ARTURO Consulting Unavailable AICHHOLZ, STRUCTURAL METAL WORKER ESSIE Primary Care Unavailable COLE, DR PAULETTE León Consulting Unavailable GARCIA ., DR BAILEY Attending Unavailable GARCIA ., DR BAILEY Admitting Unavailable AICHHOLZ, STRUCTURAL METAL WORKER ESSIE Consulting Unavailable YOBANY ., DR RASMUSSEN Attending Unavailable YOBANY ., DR RASMUSSEN Consulting Unavailable AICHHOLZ, STRUCTURAL METAL WORKER ESSIE Primary Care Unavailable YOBANY ., DR RASMUSSEN Admitting Unavailable AICHHOLZ, STRUCTURAL METAL WORKER ESSIE Primary Care Unavailable AICHHOLZ, STRUCTURAL METAL WORKER ESSIE Attending Unavailable AICHHOLZ, STRUCTURAL METAL WORKER ESSIE Consulting Unavailable AICHHOLZ, STRUCTURAL METAL WORKER ESSIE Admitting Unavailable DELANEY ., ARTURO Admitting Unavailable DELANEY ., ARTURO Attending Unavailable AICHHOLZ, STRUCTURAL METAL WORKER ESSIE Primary Care Unavailable ZIEBER, DR PREET Palafox Consulting Unavailable DELANEY ., ARTURO Consulting Unavailable TIMMIS, DR RED Attending Unavailable TIMMIS, DR RED Consulting Unavailable TIMMIS, DR RED Admitting Unavailable AICHHOLZ, STRUCTURAL METAL WORKER ESSIE Primary Care Unavailable ZIEBER, DR PREET Palafox Consulting Unavailable DIAB ., EDNA Attending Unavailable DIAB ., EDNA Admitting Unavailable MARKER ., DR JIMÉNEZ Consulting Unavailable AICHHOLZ, STRUCTURAL METAL WORKER ESSIE Primary Care Unavailable DIAB ., EDNA Consulting Unavailable OWOYELE, MISTY Consulting Unavailable AICHHOLZ, STRUCTURAL METAL WORKER ESSIE Primary Care Unavailable AICHHOLZ, STRUCTURAL METAL WORKER ESSIE Attending Unavailable AICHHOLZ, STRUCTURAL METAL WORKER ESSIE Consulting Unavailable AICHHOLZ, STRUCTURAL METAL WORKER ESSIE Admitting Unavailable ZIEBER, DR PREET Palafox Consulting Unavailable MORALES ., DR MARKO Stafford Attending Unavailable MORALES ., DR MARKO Stafford Admitting Unavailable AICHHOLZ, STRUCTURAL METAL WORKER ESSIE Primary Care Unavailable MISC, DR MCCARTHY Referring Unavailable JOSE ., DR BAILEY Consulting Unavailable MORALES ., DR MARKO Stafford Consulting Unavailable Juliana Block Unavailable Aichholz STRUCTURAL METAL WORKER, Essie Fely Primary Care Provider Adán Torres DO Unavailable Dany ARDON MD, Alexis Cummins Unavailable Angel Delgado DO Unavailable [phone] Lakshmi FELIX, Yuriy Primary Care Provider [facility] AGRICULTURAL RESEARCH ENGINEER, Essie Unavailable Aichholz AGRICULTURAL RESEARCH ENGINEER, Essie Unavailable Yuriy Martins MD Primary Care Provider [phone] LOIS MCKEON Admitting Unavailable LOIS MCKEON Attending Unavailable AICHHOLZ, ESSIE FELY Primary Care Unavailable REGINE MTZ Consulting Unavailabl e Aichholz DIALYSIS RN-STRUCTURAL METAL WORKER, Essie J Primary Care Provider LOIS MCKEON Attending Unavailable AICHHOLZ, ESSIE FELY [...] AICHHOLZ, ESSIE FELY Primary Care Unavailable Aichholz DIALYSIS RN-STRUCTURAL METAL WORKER, Essie J Primary Care Provider AICHHOLZ, ESSIE J Referring Unavailable AICHHOLZ, ESSIE J Primary Care Unavailable JEFF ROSSI Admitting Unavailable JEFF ROSSI Attending Unavailable AICHHOLZ, ESSIE J Primary Care Unavailable LAYNE HOGUE Attending Unavailable AICHHOLZ, ESSIE J Primary Care Unavailable EJFF ROSSI Referring Unavailable AICHHOLZ, ESSIE J Primary Care Unavailable JEFF ROSSI Admitting Unavailable JEFF ROSSI Attending Unavailable JEFF ROSSI Referring Unavailable AICHHOLZ, ESSIE J Primary Care Unavailable JEFF ROSSI Attending Unavailable AICHHOLZ, ESSIE J Referring Unavailable AICHHOLZ, ESSIE J Primary Care Unavailable JEFF ROSSI Attending Unavailable AICHHOLZ, ESSIE J Referring Unavailable AICHHOLZ, ESSIE J Primary Care Unavailable JEFF ROSSI Attending Unavailable AICHHOLZ, ESSIE J Referring Unavailable AICHHOLZ, ESSIE J Primary Care Unavailable Aichholz DIALYSIS RN-STRUCTURAL METAL WORKER, Essie J Primary Care Provider TRINH EDUARDO Referring Unavailable AICHHOLZ, ESSIE J Primary Care Unavailable AICHHOLZ, ESSIE J Referring Unavailable TINO LASSITER Attending Unavailable TINO LASSITER Referring Unavailable TRINH EDUARDO Attending Unavailable , TRINH Attending Unavailable CAN MONROE Attending Unavailable TRINH EDUARDO Attending Unavailable LIZ MORAN Attending Unavailable AICHHOLKamila, ESSIE Attending Unavailable AICHHOLZ, ESSIE Attending Unavailable AICHHOLZ, ESSIE Attending Unavailable AICHHOLZ, ESSIE Attending Unavailable AICHHOLZ, ESSIE Attending Unavailable AICHHOLZ, ESSIE Attending Unavailable AICHHOLZ, ESSIE Attending Unavailable Paulette Warren MD Attending Provider Essie Ryan Primary Care Provider [phone] Lynn GARCIA Attending Unavailable Lynn GARCIA Attending Unavailable Lynn GARCIA Referring Unavailable Lynn GARCIA Attending Unavailable LESLIE JUNG Attending Unavailable Yi Herrera Attending Unavailable Allergies Allergy Classification Reported Allergen(s) Allergy Type Date of Onset Reaction(s) Facility (11 sources) Penicillins; Translations: [PENICILLINS] Drug allergy (disorder) 09-21-19 12 Fever [facility] Repository (3 sources) Penicillin V Drug Allergy [facility] [employer] Other (20 sources) Penicillins Drug Allergy 07-27-19 17 Unknown, Fever [facility] (9 sources) History of - penicillin allergy (context-depend ent category); Translations: [H/O: penicillin allergy] Drug allergy [facility] (1 source) Penicillin Drug Allergy [facility] [employer] Other (20 sources) Penicillins Drug Intolerance 06-13-20 14 Other, Unknown [facility] Work Phone: (1 source) Penicillins Propensity to adverse reactions to drug 10-04-19 19 [facility] Medications Current Medications Medication [...] on above: Take 2 tablets by mo [facility] every 6 hours as needed. ARIPiprazole 30 mg oral tablet (20 sources) Atypical Antipsychotic Start: 01-16-20 take 1 tablet by mouth once daily at bedtime Aripiprazole 30 mg tablet Active 30 MG PO Daily at bedtime January 15, 2025 12:00am Complies with drug therapy Start: 04-10-2024 End: 01-31-2025 take 1 tablet by mouth once daily ARIPiprazole (Abilif y) 15 MG tablet Indications: Bipolar disorder, unspecified (HCC) Take 1 tablet (15 mg) by mouth Daily 30 tablet 3 01/01/2025 Active Start: 01-30-2024 End: 04-10-2024 take 1 [...] 28 days. 56 tablet 06/30/2024 Active atorvastatin (20 sources) HMG-CoA Reductase Inhibitor Start: 01-15-2025 atorvastatin Active PO January 15, 2025 12:00am Complies with drug therapy Start: 03-06-2024 End: 01-31-2025 take 1 tablet by mouth in the evening atorvastatin (Lipitor) 80 MG tablet Indications: Mixed hyperlipidemia Take 1 tablet (80 mg) by mouth in the evening 30 tablet 3 01/01/2025 Active Start: 04-22-2023 take 1 tablet by [...] 15 mg oral tablet (20 sources) Start: 01-15-2025 take 1 tablet by mouth twice daily as needed Buspirone 15 mg tablet Active 15 MG PO Twice daily as needed January 15, 2025 12:00am Complies with drug therapy Start: 08-28-2024 End: 01-31-2025 take 0.5 tablet by mouth in the morning busPIRone (Buspar) 15 MG tablet Indications: Anxiety Take 0.5 tablets (7.5 mg) by mouth in the morning and 0.5 tablets (7.5 mg) before bedtime. 60 tablet 3 01/01/2025 Active Start: 05-29-2023 busPIRone 7.5 mg oral [...] Take 10 mg by mouth once daily. 24 hr dilTIAZem hydrochloride 120 mg extended release oral capsule (6 sources) Calcium Channel Roderick Start: End: take 1 capsule by mouth in the morning, then take 1 capsule by mouth every twenty-four hours dilTIAZem CD (Cardizem CD) 120 MG 24 hr capsule Take 120 mg by mouth in the morning. 10/03/2024 10/03/2025 Active docusate sodium 100 mg oral capsule (2 sources) Start: take 1 capsule by mouth twice daily docusate sodium (COLACE) 100 mg capsule Take 1 capsule by mouth two times a day. Take colace while taking narcotics to decrease your risk of constipation 60 capsule 06/30/2024 Active losartan potassium 100 mg oral tablet (8 sources) Angiotensin 2 Receptor Roderick Start: End: take 1 tablet by mouth in the morning losartan (Cozaar) 100 MG tablet Indications: Primary hypertension Take 1 tablet (100 mg) by mouth in the morning. 30 tablet 11 01/01/2025 01/01/2026 Active meloxicam 15 mg oral tablet (20 sources) Nonsteroidal Anti-inflammatory Drug Start: End: take 1 tablet by mouth once daily meloxicam (Mobic) 15 MG tablet Take 15 mg by mouth Daily 10/31/2024 Active naloxone hydrochloride 40 mg/ml nasal spray (2 sources) Opioid Antagonist Start: naloxone 4 mg/actuation nasal spray (NARCAN) Use 1 spray in one nostril as needed for overdose. May repeat every 2 to 3 min in alternating nostrils until medical assistance is available 2 Each 06/30/2024 Active Aleve (8 sources) Nonsteroidal Anti-inflammatory Drug Start: take 1 mg by mouth every twelve hours Aleve mg, Oral, q12hr, Refills(s) 0 Start Date: 02/25/22 Status: Ordered omeprazole 40 mg delayed release oral capsule (20 sources) Proton Pump Inhibitor Start: End: take 1 capsule by mouth before mealtime omeprazole (PriLOSEC) [address] capsule Indications: Gastroesophageal reflux disease, unspecified whether esophagitis present Take 1 capsule (40 mg) by mouth in the morning. Take before meals. 30 capsule 5 01/01/2025 Active Start: 12-23-2010 Prilosec Oral, Daily, Refills(s) [...] 14 tablet 06/30/2024 Active polyethylene glycol 3350 458370 mg / potassium chloride 1480 mg / sodium bicarbonate 5720 mg / sodium chloride 28033 mg powder for oral solution (3 sources) Osmotic Laxative Start: 3 NuLYTELY [place] oral powder for reconstitution See Instructions, 1 EA, Refill(s) 0, See physician instructions prior to procedure., [id number], 155, cm, 11/24/22 13:47:00 EDT, Height/Length Dosing, [...] procedure, # 2 tab(s), Refills(s) 0, Pharmacy: [facility] Motility Count #01869, 155, cm, 03/03/22 15:04:00 EDT, Height/Length Dosing, 90, kg, 02/25/22 10:22:00 EDT, Weig... Start Date: 03/03/22 Status: Ordered citalopram 20 [...] 07-25-2023 12-23-2010 Chronic Cardiac dysrhythmias (4 sources) Atrial premature depolarization; Translations: [Ventricular premature depolarization] Onset: 10-03-2024 Chronic Cardiac dysrhythmias (6 sources) Palpitations; Translations: [PALPITATIONS] Onset: 11-22-2022 Episodic Complications of surgical procedures or medical care (1 source) Complication of ventilation therapy 01-15-2025 Episodic Diabetes mellitus without complication (8 sources) Increased glucose level; Translations: [Other abnormal glucose] Onset: 01-01-2025 01-01-2025 Episodic Disorders of lipid metabolism (20 sources) Hyperlipidemia; Translations: [Other hyperlipidemia] Onset: 12-14-2020 Resolved: 01-14-2023 12-14-2020 Chronic Esophageal disorders (20 sources) Gastroesophageal reflux disease; Translations: [Gastro-esophageal reflux disease without esophagitis] Onset: 09-23-2022 12-16-2020 Chronic Essential hypertension (10 sources) Essential (primary) hypertension; Translations: [Essential hypertension] Onset: 11-11-2024 Chronic Hypertension with complications and secondary hypertension (2 sources) Hypertensive heart disease without heart failure; Translations: [Hypertensive heart disease without heart failure] Onset: 10-03-2024 Chronic Mood disorders (20 sources) Bipolar disorder; [...] joint] 04-16-2024 Chronic Other connective tissue disease (20 sources) History of total hip arthroplasty; Translations: [...] Onset: 09-23-2022 Episodic Other nervous system disorders (20 sources) Median [...] excess calories] Onset: 01-30-2024 01-30-2024 Chronic Other nutritional; endocrine; and metabolic disorders (2 sources) Body mass index 40+ - severely obese; Translations: [Body mass index (BMI) 45.0-49.9, adult] 01-15-2025 Chronic Other skin disorders (4 sources) Localized [...] complications] Onset: 09-21-2011 Resolved: 08-28-2024 07-27-2016 Chronic Rehabilitation care; fitting of prostheses; and adjustment of devices (2 sources) Follow-up status; Translations: [Encounter for adjustment and management of other implanted nervous system device] 01-15-2025 Episodic Residual codes; unclassified (20 sources) Obstructive sleep [...] EXPOS COVID-19] Onset: 01-27-2022 Unclassified (1 source) Post-op Onset: 05-17-2024 Unclassified [...] Translations: [Calculus of kidney] Onset: 04-22-2022 Episodic Conditions associated with dizziness or vertigo (20 sources) Dizziness and giddiness; Translations: [Dizziness and giddiness] Onset: 08-28-2024 08-28-2024 Episodic Genitourinary symptoms and ill-defined conditions (20 sources) Lora hematuria; Translations: [Blood in urine] Onset: 04-26-2022 Resolved: 01-14-2023 02-25-2022 Episodic Immunizations and screening for infectious disease (20 sources) Needs influenza immunization; Translations: [Encounter for [...] 04-20-2012 01-14-2023 Episodic Other non-traumatic joint disorders (7 sources) Pain in right hip; Translations: [PAIN IN RIGHT HIP] Onset: 11-17-2021 Resolved: 11-17-2021 Episodic Other non-traumatic joint disorders (1 source) Osteophyte, right hip; Translations: [OSTEOPHYTE RIGHT HIP] Onset: 07-15-2022 Episodic Other non-traumatic joint disorders (20 sources) Hip pain; Translations: [Pain in right hip] Onset: 08-21-2023 03-19-2024 Episodic Other nutritional; endocrine; and metabolic [...] by 2019-nCoV; Translations: [COVID-19] Onset: 01-24-2022 Resolved: 01-01-2025 07-13-2023 Episodic Viral infection (2 sources) COVID-19; Translations: [COVID-19] Onset: 01-27-2022 Results Test Name Value Interpretation Reference Range Facility XR ABDOMEN 1Von 02-11-2025 [place] [address] XRay Report Signed Patient: STACEY SAHU MR#: [id number] : 1975 Acct:[id number] Age/Sex: 49 / F ADM Date: 02/11/25 Loc: RAD Attending Dr: Lynn Garcia M.D. Ordering Physician: Lynn Garcia M.D. Date of Service: 02/11/25 Procedure(s): XR abdomen 1V Accession Number(s): [id number] cc: Essie Ryan AGRICULTURAL RESEARCH ENGINEER; Lynn Garcia M.D. [address] [id number] Patient Name: STACEY SAHU MRN: [facility]:[id number] date: 1975 Sex: F Assigned Patient Location: [facility] Current Patient Location: [facility] Accession/Order Number: [id number] Exam Date: 02/11/2025 12:30 Report Date: 02/11/2025 12:36 At the request of: LYNN GARCIA MD Procedure: XR abdomen 1V Single view of abdomen COMPARISON: None HISTORY: Follow-up kidney stone THORAX: Lung bases unremarkable. FREE AIR: Supine position limits assessment BOWEL: No gaseous intestinal distention. STOOL: No significant stool RENAL STONES: Left nephrolithiasis measuring up to 4 mm. Right kidney obscured by stool. No visible stone. VASCULAR CALCIFICATIONS: Present SOFT TISSUE: Unremarkable BONES: Unremarkable POSTSURGICAL CHANGES: Right hip arthroplasty. Right abdominal surgical clips stable 3, ring-shaped radiopaque structures in the right lower abdomen. XR/XR abdomen 1V IMPRESSION: Left nephrolithiasis measuring up to 4 mm Impression dictated by: iVpin Iniguez M.D. 02/11/2025 12:36 PM Dictation Location: [place] [address] Electronically authenticated by: [id number] Y Date: 02/11/2025 12:36 Dictated By: Vipin Iniguez D.O. Signed By: 02/11/25 1239 DD/ 1236 TD/TT: Meeting Facilitator: [facility] Radiology, Radiologist, - 02/11/2025 [place] [address] XRay Report Signed Patient: STACEY SAHU MR#: [id number] : 1975 Acct:[id number] Age/Sex: 49 / F ADM Date: 02/11/25 Loc: RAD Attending Dr: Lynn Garcia M.D. Ordering Physician: Lynn Garcia M.D. Date of Service: 02/11/25 Procedure(s): XR abdomen 1V Accession Number(s): [id number] cc: Essie Ryan AGRICULTURAL RESEARCH ENGINEER; Lynn Garcia M.D. The [address] [address] Patient Name: STACEY SAHU MRN: [id number] date: 1975 Sex: F Assigned Patient Location: [facility] Current Patient Location: [facility] Accession/Order Number: [id number] Exam Date: 02/11/2025 12:30 Report Date: 02/11/2025 12:36 At the request of: LYNN GARCIA MD Procedure: XR abdomen 1V Single view of abdomen COMPARISON: None HISTORY: Follow-up kidney stone THORAX: Lung bases unremarkable. FREE AIR: Supine position limits assessment BOWEL: No gaseous intestinal distention. STOOL: No significant stool RENAL STONES: Left nephrolithiasis measuring up to 4 mm. Right kidney obscured by stool. No visible stone. VASCULAR CALCIFICATIONS: Present SOFT TISSUE: Unremarkable BONES: Unremarkable POSTSURGICAL CHANGES: Right hip arthroplasty. Right abdominal surgical clips stable 3, ring-shaped radiopaque structures in the right lower abdomen. XR/XR abdomen 1V IMPRESSION: Left nephrolithiasis measuring up to 4 mm Impression dictated by: Vipin Iniguez M.D. 02/11/2025 12:36 PM Dictation Location: [place] [address] Electronically authenticated by: [id number] Y Date: 02/11/2025 12:36 Dictated By: Vipin Iniguez D.O. Signed By: 02/11/25 1239 DD/ 1236 TD/TT: Meeting Facilitator: [facility] Study observation (narrative) [facility] XR ABDOMEN 1VOrdered By: Rusty iologist Radiology on 02-11-2025 [employer] Work Phone: HbA1c (Bld) [Mass fraction]o n 01-01-2025 Interpretation and review of laboratory results Normal [facility] - Hematology and Cell countson 01-01-2025 HbA1c (Bld) [Mass fraction] 5.6 % [facility] XR ABDOMEN 1Von 11-28-[address] [address] XRay Report Signed Patient: STACEY SAHU MR#: [id number] : 1975 Acct:[id number] Age/Sex: 49 / F ADM Date: 11/28/24 Loc: SURGOUT Attending Dr: Lynn Garcia M.D. Ordering Physician: Lynn Garcia M.D. Date of Service: 11/28/24 Procedure(s): XR abdomen 1V Accession Number(s): [id number] cc: Essie Ryan AGRICULTURAL RESEARCH ENGINEER; Lynn Garcia M.D. The [place] [id number] Patient Name: STACEY SAHU MRN: [facility]:[id number] date: 1975 Sex: F [email or web address] Accession/Order Number: [id number] Exam Date: 11/28/2024 11:14 Report Date: 11/28/2024 11:20 At the request of: LYNN GARCIA MD Procedure: XR abdomen 1V SINGLE [...] Clifford M.D. 11/28/2024 11:20 AM Dictation Location: [place] [address] Electronically authenticated by: [id number] Y Date: 11/28/2024 11:20 Dictated By: Dinorah Clifford M.D. Signed By: 11/28/24 1123 DD/ 1120 TD/TT: Meeting Facilitator: [facility] Radiology, Radiologist, - 11/28/2024 [place] [address] XRay Report Signed Patient: STACEY SAHU MR#: [id number] : 1975 Acct:[id number] Age/Sex: 49 / F ADM Date: 11/28/24 Loc: SURGOUT Attending Dr: Lynn Garcia M.D. Ordering Physician: Lynn Garcia M.D. Date of Service: 11/28/24 Procedure(s): XR abdomen 1V Accession Number(s): [id number] cc: Essie Ryan AGRICULTURAL RESEARCH ENGINEER; Lynn Garcia M.D. [place] [address] Patient Name: STACEY SAHU MRN: [id number] date: 1975 Sex: F Assigned Patient Location: SURGOUT [email or web address] Accession/Order Number: [id number] Exam Date: 11/28/2024 11:14 Report Date: 11/28/2024 11:20 At the request of: LYNN GARCIA MD Procedure: XR abdomen 1V SINGLE [...] Clifford M.D. 11/28/2024 11:20 AM Dictation Location: [place] [address] Electronically authenticated by: [id number] Y Date: 11/28/2024 11:20 Dictated By: Dinorah Clifford M.D. Signed By: 11/28/24 1123 DD/ 1120 TD/TT: Meeting Facilitator: [facility] Radiology Study observation (narrative) [facility] XR ABDOMEN 1VOrdered By: Rusty iologpuja Radiology [facility]24 [facility]: ALL CBC WITH AUTO DIFFon BASOPHILS ABSOLUTE AUTO 0.1 [facility] Basophils/100 WBC (Bld) 1.2 % 0.2 - 2.0 % [facility] Eosinophils/100 WBC (Bld) 7.7 % High 0.9 - 7.0 % [facility] Erythrocyte distribution width (RBC) [Ratio] 13.1 % 11.0 - 15.0 % [facility] Hematocrit (Bld) [Volume fraction] 38.2 % 36.0 - 48.0 % [facility] Hemoglobin (Bld) [Mass/Vol] 12.4 g/dL 12.0 - 16.0 g/dL [facility] IMMATURE GRANULOCYTES ABS AUTO 0.02 [facility] Immature granulocytes/100 WBC (Bld) 0.3 % 0.0 - 0.5 % [facility] Interpretation and review of laboratory results Abnormal [facility] LYMPHOCYTES ABSOLUTE AUTO 2.7 [facility] Lymphocytes/100 WBC (Bld) 36.2 % 20.5 - 60.0 % [facility] MCH (RBC) [Entitic mass] 28.6 pg 26.7 - 34.0 pg [facility] MCHC (RBC) [Mass/Vol] 32.5 g/dL 29.9 - 35.2 g/dL [facility] MCV (RBC) [Entitic vol] 88 fL 81.0 - 99.0 fL [facility] MONOCYTES ABSOLUTE AUTO 0.6 [facility] Monocytes/100 WBC (Bld) 8.5 % 1.7 - 12.0 % [facility] NEUTROPHILS ABSOLUTE AUTO 3.5 [facility] Neutrophils/100 WBC (Bld) 46.1 % 43.0 - 75.0 % [facility] Platelet mean volume (Bld) [Entitic vol] 10.4 fL 9.5 - 13.5 fL [facility] EO # 0.6 [facility] PLT 276 [facility] RBC 4.34 [facility] WBC 7.6 [facility] 36on 11-19-2024 36 Patient left a voicemail indicating she would like to proceed with alternative provider and lab provided they are in-network with her insurance. Unable to determine insurance network status. Faxed referral, sleep study order, last visit notes, and split night study report to [facility]. [facility] 36on 11-15-2024 36 Left voicemail for patient: according to [facility] in [place] has [employer]-trained techs at their lab and an [employer]-trained provider in Dr. Paulette Warren -- would you like us to send your study order and referral? [facility] Telephoneon 11-15-2024 Telephone [id number] Stacey Sahu 1975 Date Provider Department Center 11/15/2024 KAMINI URENA [facility] SLEEP [facility] Family History Problem Relation Age of Onset Coronary artery disease Father Family Status - Relation Status Age at Mother Alive Father Reason for Visit and Comments: Sleep Study [701] Referral [825] [facility] Office Visiton 11-11-2024 Follow-up visit [id number] Stacey Sahu 1975 Provider Department Center 11/11/2024 LIZ COTTO [facility] Family History Problem Relation Age of Onset Coronary artery disease Father Family Status - Relation Status Age at Mother Alive Father Level of Service:08229 [place] OFFICE/OUTPATIENT ESTABLISHED MOD MDM 30 MIN [facility] XR SPINE CERVICAL 3 VWS OR L ESSon 11-02-2024 XR SPINE CERVICAL 3 VWS OR LESS XR SPINE CERVICAL 3 VWS OR LESS XR SPINE CERVICAL 3 VWS OR LESS HISTORY: Chest pain, unspecified type; sleep apnea. COMPARISON: 08/22/2024. IMPRESSION: * Hypoglossal nerve stimulator right submandibular region. * No acute osseous abnormality. 5 Finalized by Mark Stoddard MD on 11/02/2024 11:41 PM Normal [facility] CA ECHO DOPPLER COMPLETEon 0 11-01-[address] [address] Cardiology Report Signed Patient: HENRYSTACEY Gonzalez MR#: [id number] : 1975 Acct:[id number] Age/Sex: 49 / F ADM Date: 11/01/24 Loc: CARD Attending Dr: CAN MONROE APRN Ordering Physician: CAN MONROE APRN Date of Service: 11/01/24 Procedure(s): CA echo doppler complete Accession Number(s): [id number] cc: Essie Ryan AGRICULTURAL RESEARCH ENGINEER; CAN MONROE APRN Patient Name: STACEY SAHU MR#: [id number] : 1975 Exam Date: 11/01/2024 Ordering Doctor: CAN MONROE STRUCTURAL METAL WORKER ECHOCARDIOGRAM REPORT PROCEDURE: CA ECHO DOPPLER COMPLETE [...] at 17:58 Dictated By: Guanaco Draper M.D. (more content not included)... [facility] Radiology, Radiologist, - 11/01/[address] [address] Cardiology Report Signed Patient: STACEY SAHU MR#: [id number] : 1975 Acct:[id number] Age/Sex: 49 / F ADM Date: 11/01/24 Loc: CARD Attending Dr: CAN MONROE APRN Ordering Physician: CAN MONROE APRN Date of Service: 11/01/24 Procedure(s): CA echo doppler complete Accession Number(s): [id number] cc: Essie Ryan AGRICULTURAL RESEARCH ENGINEER; CAN MORNOE APRN Patient Name: STACEY SAHU MR#: [id number] : 1975 Exam Date: 11/01/2024 Ordering Doctor: CAN MONROE CNP ECHOCARDIOGRAM REPORT PROCEDURE: CA ECHO DOPPLER [...] M.D. Signed By: 11/01/241758 DD/ 57 TD/TT: Meeting Facilitator: [facility] Radiology Study observation (narrative) [facility] CA ECHO DOPPLER COMPLETEOrde red By: Radiologist Radiology on 11-01-2024 [facility] Work Phone: Follow-Upon 10-30-2024 Follow-Up [id number] Stacey Sahu 1975 F Date Provider Department Center 10/30/2024 MCKAY TRINH [facility] SLEEP [facility] Family History Problem Relation Age of Onset Coronary artery disease Father Family Status - Relation Status Age at Mother Alive Father Level of Service:74206 [place] OFFICE/OUTPATIENT ESTABLISHED LOW MDM 20 MIN Reason for Visit and Comments: Follow-up [191756] - Patient gets a sap a day or twice in chest. [facility] 36on 10-25-2024 36 Spoke with patient and she said her chest pain is better since starting diltiazem. She's scheduled for echo 11/02/2023. [facility] 36on 10-12-2024 36 And also please ask how her chest pain is doing, if it is any better with starting diltiazem. Thanks [facility] 36 When is she scheduled for her ECHO? Would like to have this prior to clearance [facility] 36on 10-11-2024 36 You saw this patient in the office last week. Dr. Garcia is now requesting clearance for lithotripsy, scheduled on 10/17. She had EKG when we saw her, and I just put updated lab results into her chart. Please advise. Thanks! [facility] Telephoneon 10-11-2024 Telephone [id number] Stacey Sahu 1975 F Date Provider Department Center 10/11/2024 Tahir-WINTER STAHL RAVI [facility] Family History Problem Relation Age of Onset Coronary artery disease Father Family Status - Relation Status Age at Mother Alive Father [facility] ALL CBC WITH AUTO DIFFon BASOPHILS ABSOLUTE AUTO 0.1 [facility] Basophils/100 WBC (Bld) 1.2 % 0.2 - 2.0 % [facility] Eosinophils/100 WBC (Bld) 6.9 % 0.9 - 7.0 % [facility] Erythrocyte distribution width (RBC) [Ratio] 13.1 % 11.0 - 15.0 % [facility] Hematocrit (Bld) [Volume fraction] 38.5 % 36.0 - 48.0 % [facility] Hemoglobin (Bld) [Mass/Vol] 12.6 g/dL 12.0 - 16.0 g/dL [facility] IMMATURE GRANULOCYTES ABS [facility]O [facility].01 [facility] Immature granulocytes/100 WBC (Bld) 0.1 % 0.0 - 0.5 % [facility] LYMPHOCYTES ABSOLUTE AUTO 2.7 [facility] Lymphocytes/100 WBC (Bld) 33.4 % 20.5 - 60.0 % [facility] MCH (RBC) [Entitic mass] 28.4 pg 26.7 - 34.0 pg [facility] MCHC (RBC) [Mass/Vol] 32.7 g/dL 29.9 - 35.2 g/dL [facility] MCV (RBC) [Entitic vol] 86.7 fL 81.0 - 99.0 fL [facility] MONOCYTES ABSOLUTE AUTO 0.6 [facility] Monocytes/100 WBC (Bld) 7.8 % 1.7 - 12.0 % [facility] NEUTROPHILS ABSOLUTE AUTO 4.1 [facility] Neutrophils/100 WBC (Bld) 50.6 % 43.0 - 75.0 % [facility] Platelet mean volume (Bld) [Entitic vol] 10.6 fL 9.5 - 13.5 fL [facility] TBH EO # 0.6 [facility] PLT 270 [facility] RBC 4.44 [facility] WBC 8.1 [facility] XR HIP LT MIN 2Von 5 [place] [address] XRay Report Signed Patient: STACEY SAHU MR#: [id number] : 1975 Acct:[id number] Age/Sex: 49 / F ADM Date: 10/09/24 Loc: RUSTY Attending Dr: Essie Ryan NP Ordering Physician: Essie Ryan NP Date of Service: 10/09/24 Procedure(s): XR hip LT min 2V Accession Number(s): [id number] cc: Essie Ryan NP The [address] [id number] Patient Name: STACEY SAHU MRN: [facility]:[id number] date: 1975 Sex: F Assigned Patient Location: RAD Current Patient Location: RAD Accession/Order Number: [id number] Exam Date: 10/09/2024 15:18 Report Date: 10/09/2024 15:19 At the request of: ESSIE RYAN AGRICULTURAL RESEARCH ENGINEER Procedure: XR hip LT min 2V LEFT HIP - 2 views: CLINICAL HISTORY: Left Hip Pain COMPARISON: None FINDINGS: Mild degenerative changes of the left hip without acute bony process. XR/XR hip LT min 2V IMPRESSION: MILD DEGENERATIVE CHANGES OF THE LEFT HIP WITHOUT ACUTE BONY PROCESS.. Impression dictated by: Robby Lowe Jr., D.O.10/09/2024 3:19 PM Dictation Location: [place] [address] Electronically authenticated by: [id number] Y Date: 10/09/2024 15:19 Dictated By: Robby Lowe M.D. Signed By: 10/09/24 1522 DD/ 1519 TD/TT: Meeting Facilitator: [facility] Radiology, Radiologist, MD - 10/09/2024 [place] [address] XRay Report Signed Patient: STACEY SAHU MR#: [id number] : 1975 Acct:[id number] Age/Sex: 49 / F ADM Date: 10/09/24 Loc: RAD Attending Dr: Essie Ryan AGRICULTURAL RESEARCH ENGINEER Ordering Physician: Essie Ryan NP Date of Service: 10/09/24 Procedure(s): XR hip LT min 2V Accession Number(s): [id number] cc: Essie Ryan NP The [address] [address] Patient Name: STACEY SAHU MRN: [facility]:[id number] date: 1975 Sex: F Assigned Patient [facility]: [facility] Current Patient Location: RAD Accession/Order Number: [id number] Exam Date: 10/09/2024 15:18 Report Date: 10/09/2024 [...] Lowe Jr., D.O.10/09/2024 3:19 PM Dictation Location: [place] [address] Electronically authenticated by: [id number] Y Date: 10/09/2024 15:19 Dictated By: Robby Lowe M.D. Signed By: 10/09/24 1522 DD/ 1519 TD/TT: Meeting Facilitator: [facility] Radiology Study observation (narrative) [facility] XR HIP LT MIN 2VOrdered By: Radiologist Radiology on 10-09-2024 [facility] Work Phone: Ambulatory Visit Summaryon 0 10-07-2024 Ambulatory Visit Summary Ambulatory Visit Summary STACEY SAHU :1975 Visit Date:10/07/2024 Ambulatory Visit Instructions Your Diagnosis Kidney stones Gross hematuria Your Care Team Attending Physician - Lynn GARCIA MD Primary Care Physician - ESSIE RYAN CNP This Is Your Medications List Contact prescribing physician if questions or concerns atorvastatin (atorvastatin 10 mg Tab) busPIRone (busPIRone 7.5 mg oral tablet) meloxicam (meloxicam 15 mg Tab) naproxen (Aleve) omeprazole (Prilosec) Procedures Performed Hemithyroidectomy (12/2022), Arthroplasty of right hip, Hysterectomy, laparoscopy, partial colectomy, Tonsillectomy, tubal ligation. Discharge Vitals Temperature (Temporal Artery) 37 ???C Heart Rate (Peripheral) 65 Respiratory Rate 18 Blood Pressure 136/78 Height 155 cm Height 61 in Weight 89.2 kg Weight 196.652 lb BMI 37.13 What to do next You Need to Schedule the Following Appointments Follow Up with Lynn GARCIA MD, URL When: Comments: schedule R ESWL then L Where: [facility] [address], [place] [address] [phone] Medications What How Much When Instructions Unchanged atorvastatin (atorvastatin 10 mg Tab) Contact prescribing physician if questions or concerns Unchanged busPIRone (busPIRone 7.5 mg oral tablet) Contact prescribing physician if questions or concerns Unchanged meloxicam (meloxicam 15 mg Tab) Contact prescribing physician if questions or concerns Unchanged naproxen (Aleve) Every 12 hours Contact prescribing physician if questions or concerns Unchanged omeprazole (Prilosec) Every day Contact prescribing physician if questions or concerns Allergies H/O: penicillin allergy Problems Ongoing - [...] choosing us for your care. Education Materials ESWL for Kidney Stones, Care After The following information offers guidance on how to care for yourself after your procedure. Your health care provider may also give you more specific instructions. If you have problems or questions, contact your health care provider. What can I expect after the procedure? After the procedure, it is common to have: ??? Some blood in your urine. This should only last for a few days. ??? Soreness in your back, sides, or upper abdomen for a few days. ??? Blotches or bruises on the area where the shock wave entered the skin. ??? Pain, discomfort, or nausea when pieces (fragments) of the kidney stone move through the tube that carries urine from the kidney to the bladder (ureter). Fragments may pass soon after the procedure. They may also take up to 4???8 weeks to pass. ? If you have severe pain or nausea, contact your health care provider. This may be caused by a large stone that was not broken up enough. This may mean that you need more treatment. ??? Some pain or discomfort during urination. ??? Some pain or discomfort in the lower abdomen or at the base of the penis. Follow these instructions at home: Medicines ??? Take fiib-flp-amyrdxj and prescription medicines only as told by your health care provider. ??? If you were prescribed antibiotics, take them as told by your health care provider. Do not stop using the antibiotic even if you start to feel better. ??? Ask your health care provider if the medicine prescribed to you: ? Requires you to avoid driving or using machinery. ? Can cause constipation. You may need to take these actions to prevent or treat constipation: ? Take nelx-xnr-tfcfmhw or prescription medicines. ? Eat foods that are high in fiber, such as beans, whole grains, and fresh fruits and vegetables. ? Limit foods that are high in fat and processed sugars, such as fried or sweet foods. Eating and drinking ??? Follow instructions from your health care provider about what you may eat and drink. You may be told to: ? Reduce how much salt (sodium) you eat or drink. Check ingredients and nutrition facts on packaged foods and drinks to see how much sodium they contain. ? Reduce how much meat you eat. ??? Drink enough fluid to keep your urine pale yellow. This can help you pass any pieces of the stone that are left. It can also prevent new stones from forming. ??? Eat plenty of fresh fruits and vegetables. ? (more content not included)... Normal [facility] Urology Office/Clinic Noteon 10-07-2024 Urology Office/Clinic Note Urology Office/Clinic Note Chief Complaint f/u to BEN and KUB HPI Staff F/u with KUB and BEN. Dx: kidney stones and gross hematuria Pt denies urinary complaints at this time. She does state that she saw blood in her urine a couple of weeks ago and it was only 1 episode and nothing since. She did have some pain in her left flank region a few days ago but that subsided and has not returned. History of Present Illness Tests reviewed: reviewed UA, KUB, BEN I have reviewed the previous health record [...] See HPI. Physical Exam Vitals & Measurements T: 37 ???C(Temporal Artery) HR: 65(Peripheral) RR: 18 BP: 136/78 HT: 155 cm HT: 61 in WT: 196.652 lb WT: 89.2 kg BMI: 37.13 General Appearance: alert , no acute distress, well nourished, well developed female. Assessment/Plan 1. Kidney stones (N20.0: Calculus of kidney) S/p ESWL [address] Verduzco. Pt does not recall passing stone fragments after. CTU 04/22/22 [facility] - 6 mm R [...] urine values WNL and blood work WNL. [1] KUB 09/09/24 [facility] - Single stones in both kidneys, largest 9 mm on R. BEN 09/09/24 [facility] - Bilateral nephrolithiasis, largest 12 mm on R. No hydro. Only drinks when she is thirsty. Advised pt she needs to significantly increase her fluid intake to help with stone prevention. Recommended pt to increase fluid intake to ten to twelve 16oz bottles a day; preferably water, clear pop, and sugar free lemonade. Reviewed imaging results. Discussed stone burden has become significant and treatment is recommended. Recommended ESWL and discussed risks/benefits. Given larger stone burden on right, will proceed with this side first. -Will schedule Right ESWL with possible stent placement. The procedure risks, benefits, details and treatment alternatives have been discussed with the patient. These include blood urine, infection, bleeding around the kidney, kidney bruising, inability to break up the stone, need for blood transfusion, stent pain, injury to the ureter, bladder irritation from the stent, flank pain, and need for additional procedures, among others. Full informed consent has been obtained. Will order General anesthesia. -If ESWL is unsuccessful, will need to consider ureteroscopy/laser -Dramatically increase fluid intake 2. Gross hematuria (R31.0: Gross hematuria) Isolated episode a few weeks ago with L flank pain...?passing a stone. UA today negative for blood and infection. Follow-up With When Contact Information JOSE FELIX, Lynn Palafox, URL [facility] [address], [place] [address] [phone] Additional Instructions: schedule R ESWL then L Patient Education ESWL for Kidney Stones, Care After ESWL for Kidney Stones Dietary Guidelines to Help Prevent Kidney Stones I, Imani Renae, personally scribed for Dr. Garcia on 10/07/2024 10:37:06. . Documentation recorded by the scribe, Imani Renae, accurately reflects the services(s) I performed and decisions made by me. Authenticated by Dr. Garcia on 10/07/2024 10:43:09. Problem List/Past Medical History Ongoing Bipolar depression Chronic GERD Crohn's disease, small intestine Flank pain Gross hematuria Hyperlipidemia Kidney stones Nocturia PAH (pulmonary artery hypertension) Historical anxiety disorder crohn's disease depression hypercholesterolemi a nephrolithiasis Procedure/Surgical History Hemithyroidectomy (12/2022), Arthroplasty of right hip, Hysterectomy, laparoscopy, partial colectomy, Tonsillectomy, tubal ligation. Medications Aleve, Oral, q12hr atorvastatin 10 mg Tab busPIRone 7.5 mg oral tablet meloxicam 15 mg Tab Prilosec, Oral, Daily Allergies H/O: penicillin allergy Social History Alcohol - Denies Alcohol Use, 12/23/2010 Never., 10/02/2024 Substance Abuse - Denies Substance Abuse, 12/23/2010 Never., 10/02/2024 Tobacco Former smoker, quit more than 30 days ago Tobacco Use:. Nev (more content not included)... Normal [facility] Comment on above: Result Comment: Elec tronically Signed By: Lynn GARCIA MD\.br\Date and Time Signed: 10/07/24 10:43 EDT\.br\Electronically Co-Signed By: Imani Renae\.br\Date and Time Co-Signed: 10/07/24 10:37 EDT MM TOMOSYNTHESIS SCREENING B Ion 10-04-2024 [place] [address] Mammography Report Signed Patient: STACEY SAHU MR#: [id number] : 1975 Acct:[id number] Age/Sex: 49 / F ADM Date: 10/04/24 Loc: MAMMO Attending Dr: Essie Ryan NP Ordering Physician: Essie Ryan NP Results: Date of Service: 10/04/24 Follow Up: Procedure(s): MM tomosynthesis screening BI Accession Number(s): [id number] cc: Essie Ryan NP Patient Name: STACEY SAHU MR#: [id number] : 1975 Exam Date: 10/04/2024 Ordering Doctor: [...] colon cancer at age 56. LOCATION: [facility] BREAST COMPOSITION: There are scattered areas [...] Signed By: 10/04/24 1230 DD/ 1229 TD/TT: Meeting Facilitator: [facility] Radiology, Radiologist, MD - 10/04/2024 [place] [address] Mammography Report Signed Patient: STACEY SAHU MR#: [id number] : 1975 Acct:[id number] Age/Sex: 49 / F ADM Date: 10/04/24 Loc: MAMMO Attending Dr: Essie Ryan NP Ordering Physician: Essie Ryan NP Results: Date of Service: 10/04/24 Follow Up: Procedure(s): MM tomosynthesis screening BI Accession Number(s): [id number] cc: Essie Ryan NP Patient Name: STACEY SAHU MR#: [id number] : 1975 Exam Date: 10/04/2024 Ordering Doctor: NIURKA Ryan STRUCTURAL METAL WORKER RADIOLOGY REPORT PROCEDURE: MM TOMOSYNTHESIS SCREENING BI [...] colon cancer at age 56. LOCATION: [facility] BREAST COMPOSITION: There are scattered areas [...] Signed By: 10/04/24 1230 DD/ 1229 TD/TT: Meeting Facilitator: [facility] ED01 Radiology Study observation (narrative) [facility] ED01 MM TOMOSYNTHESIS SCREENING B IOrdered By: Radiologist Radiology on 10-04-2024 [facility] Work Phone: Office Visiton 10-03-2024 Follow-up visit [id number] Stacey Sahu 1975 F Date Provider Department Center 10/03/2024 CAN KAPLAN [facility] Family History Problem Relation Age of Onset Coronary artery disease Father Family Status - Relation Status Age at Mother Alive Father Level of Service:62609 [place] OFFICE/OUTPATIENT ESTABLISHED MOD MDM 30 MIN Reason for Visit and Comments: Hypertension [767684] Hyperlipidemia [182] Normal [facility] Follow-Upon 09-27-2024 Follow-Up [id number] Stacey Sahu A 1975 Date Provider Department Center 09/27/2024 TRINH BASHIR [facility] SLEEP [facility] Family History Problem Relation Age of Onset Coronary artery disease Father Family Status - Relation Status Age at Father Level of Service:79807 [place] OFFICE/OUTPATIENT ESTABLISHED MOD MDM 30 MIN Reason for Visit and Comments: Sleep Apnea [348] Normal [facility] 09-12-2024 36 Scheduled patient for [employer] device activation on 09/27 at 9:00 am. Normal [facility] 09-10-2024 36 Left voicemail for patient: are you available to come in for your Insp[employer] activation on September 27 at 9:00 am? Could potentially do it a bit later if that would work better. [facility] US RENAL BIon 09-09-2024 [place] [address] Ultrasound Report Signed Patient: STACEY SAHU MR#: [id number] : 1975 Acct:[id number] Age/Sex: 49 / F ADM Date: 09/09/24 Loc: US Attending Dr: Leslie ONEILL Ordering Physician: Leslie Jung Date of Service: 09/09/24 Procedure(s): US renal BI Accession Number(s): [id number] cc: Essie Ryan NP; Leslie Jung [place] [address] Patient Name: STACEY SAHU MRN: [id number] date: 1975 Sex: F Assigned Patient Location: US Current Patient Location: US Accession/Order Number: [id number] Exam Date: 09/09/2024 11:27 Report Date: 09/09/2024 [...] Lowe Jr., D.O.09/09/2024 11:28 AM Dictation Location: [place] [address] Electronically authenticated by: [id number] Y Date: 09/09/2024 11:28 Dictated By: Robby Lowe M.D. Signed By: 09/09/24 1131 DD/ 1128 TD/TT: Meeting Facilitator: [facility] Radiology, Radiologist, MD - 09/09/2024 [place] [address] Ultrasound Report Signed Patient: STACEY SAHU MR#: [id number] : 1975 Acct:[id number] Age/Sex: 49 / F ADM Date: 09/09/24 Loc: US Attending Dr: Leslie ONEILL Ordering Physician: Leslie Jung Date of Service: 09/09/24 Procedure(s): US renal BI Accession Number(s): [id number] cc: Essie Ryan NP; Leslie Jung [place] [address] Patient Name: STACEY SAHU MRN: [facility]:[id number] date: 1975 Sex: F Assigned Patient Location: US Current Patient Location: US Accession/Order Number: [id number] Exam Date: 09/09/2024 11:27 Report Date: 09/09/2024 [...] Lowe Jr., D.O.09/09/2024 11:28 AM Dictation Location: [place] [address] Electronically authenticated by: [id number] Y Date: 09/09/2024 11:28 Dictated By: Robby Lowe M.D. Signed By: 09/09/24 1131 DD/ 1128 TD/TT: Meeting Facilitator: [facility] Radiology Study observation (narrative) [facility] RENAL BIOrdered By: Radio logist Radiology on 09-09-2024 [facility] Work Phone: XR ABDOMEN 1Von 09-09-[address] [address] XRay Report Signed Patient: STACEY SAHU MR#: [id number] : 1975 Acct:[id number] Age/Sex: 49 / F ADM Date: 09/09/24 Loc: Attending Dr: Leslie ONEILL Ordering Physician: Leslie Jung Date of Service: 09/09/24 Procedure(s): XR abdomen 1V Accession Number(s): [id number] cc: Essie Ryan AGRICULTURAL RESEARCH ENGINEER; Leslie Jung [address] [address] Patient Name: STACEY SAHU MRN: [facility]:[id number] date: 1975 Sex: F Assigned Patient Location: Current Patient Location: US Accession/Order Number: [id number] Exam Date: 09/09/2024 12:27 Report Date: 09/09/2024 [...] Lowe Jr., D.O.09/09/2024 12:29 PM Dictation Location: [place] [address] Electronically authenticated by: [id number] Y Date: 09/09/2024 12:29 Dictated By: Robby Lowe M.D. Signed By: 09/09/24 1231 DD/ 1229 TD/TT: Meeting Facilitator: [facility] Radiology, Radiologist, MD - 09/09/[address] [address] XRay Report Signed Patient: STACEY SAHU MR#: [id number] : 1975 Acct:[id number] Age/Sex: 49 / F ADM Date: 09/09/24 Loc: US Attending Dr: Leslie ONEILL Ordering Physician: Leslie Jung Date of Service: 09/09/24 Procedure(s): XR abdomen 1V Accession Number(s): [id number] cc: Essie Ryan AGRICULTURAL RESEARCH ENGINEER; Leslie Jung [place] [address] Patient Name: STACEY SAHU MRN: [id number] date: 1975 Sex: F Assigned Patient Location: US Current Patient Location: [place] Accession/Order Number: [id number] Exam Date: 09/09/2024 12:27 Report Date: 09/09/2024 [...] Lowe Jr., D.O.09/09/2024 12:29 PM Dictation Location: [place] [address] Electronically authenticated by: [id number] Y Date: 09/09/2024 12:29 Dictated By: Robby Lowe M.D. Signed By: 09/09/24 1231 DD/ 1229 TD/TT: Meeting Facilitator: [facility] Radiology Study observation (narrative) [facility] XR ABDOMEN 1VOrdered By: Rad iologist Radiology on 09-09-2024 [place] [employer] Work Phone: ALL CBC WITH AUTO DIFFon BASOPHILS ABSOLUTE AUTO 0.1 [facility] Basophils/100 WBC (Bld) 0.9 % 0.2 - 2.0 % [facility] Eosinophils/100 WBC (Bld) 8.7 % High 0.9 - 7.0 % [facility] Erythrocyte distribution width (RBC) [Ratio] 12.8 % 11.0 - 15.0 % [facility] Hematocrit (Bld) [Volume fraction] 40.1 % 36.0 - 48.0 % [facility] Hemoglobin (Bld) [Mass/Vol] 12.8 g/dL 12.0 - 16.0 g/dL [facility] IMMATURE GRANULOCYTES ABS AUTO 0.01 [facility] Immature granulocytes/100 WBC (Bld) 0.1 % 0.0 - 0.5 % [facility] Interpretation and review of laboratory results Abnormal [facility] LYMPHOCYTES ABSOLUTE AUTO 2.7 [facility] Lymphocytes/100 WBC (Bld) 38.7 % 20.5 - 60.0 % [facility] MCH (RBC) [Entitic mass] 29 pg 26.7 - 34.0 pg [facility] MCHC (RBC) [Mass/Vol] 31.9 g/dL 29.9 - 35.2 g/dL [facility] MCV (RBC) [Entitic vol] 90.7 fL 81.0 - 99.0 fL [facility] MONOCYTES ABSOLUTE AUTO 0.7 [facility] Monocytes/100 WBC (Bld) 10.1 % 1.7 - 12.0 % [facility] NEUTROPHILS ABSOLUTE AUTO 2.9 [facility] Neutrophils/100 WBC (Bld) 41.5 % Low 43.0 - 75.0 % [facility] Platelet mean volume (Bld) [Entitic vol] 10.7 fL 9.5 - 13.5 fL [facility] TBH EO # 0.6 [facility] PLT 282 [facility] RBC 4.42 [facility] WBC 7 [facility] STACEY [facility]HU ([id number]) 1975 F Date Time Provider Department 07/30/24 [...] Encounter Status:Closed by LOIS MCKEON on 07/30/24 [facility] No Panel InformationOrdered By: Radiologist Radiology on 07-30-2024 [employer] Work Phone: XR HIP 3V PELV+ AP/LAT [...] which may be external to the patient. Meeting Facilitator: [facility] Transcribe Date/Time: Jul 30 2024 2:30P Dictated by : OLVIN HOLDER MD This examination was interpreted and the report reviewed and electronically signed by: OLVIN HOLDER MD on Jul 30 2024 2:32PM EST [id number]^ SI^ACN [facility] Radiology, Radiologist, MD - 07/30/2024 [...] which may be external to the patient. Meeting Fac[facility]ator[facility] Transcribe Date/Time: Jul 30 2024 2:30P Dictated by : OLVIN HOLDER MD This examination was interpreted and the report reviewed and electronically signed by: OLVIN HOLDER MD on Jul 30 2024 2:32PM EST [id number]^ SI^ACN [facility] XR HIP 3V PELV+ AP/LAT RT * [...] which may be external to the patient. Meeting Facilitator: [facility] Transcribe Date/Time: Jul 30 2024 2:30P Dictated by : OLVIN HOLDER MD This examination was interpreted and the report reviewed and electronically signed by: OLVIN HOLDER MD on Jul 30 2024 2:32PM EST [id number] ACN Normal [facility] Radiology Study observation (narrative) [facility] XR Pelvis and Hip - right AP and Lateral frogon 07-30-2024 IMPRESSION: Postoperative changes of right total hip arthroplasty. Nonspecific rounded/disc-like radiodensities overlying the right lower quadrant and iliac wing, which may be external to the patient. Meeting Facilitator: [facility] Transcribe Date/Time: Jul 30 2024 2:30P Dictated [...] superior iliac wing. DIVISION OF RADIOLOGY Provider, [facility] - 07/30/2024 * * *Final Report* * [...] which may be external to the patient. Meeting Facilitator: [facility] Transcribe Date/Time: Jul 30 2024 2:30P Dictated by : OLVIN HOLDER MD This examination was interpreted and the report reviewed and electronically signed by: OLVIN HOLDER MD on Jul 30 2024 2:32PM EST [facility] Radiology Study observation (narrative) [facility] ALLIED HEALTHon 07-01-2024 ALLIED HEALTH HNO ID: [id number] Author: JOSELO GÓMEZ RT(R) Service: Radiology Author [...] PATIENT PRESENTS WITH AN IMPLANTABLE OR ATTACHED ENTRY LEVEL TRUCK DRIVER: No RADIOLOGY DEPARTMENT: General X-ray: Exam(s) Completed: Pelvis X-Ray: Pelvis General AP PERIPHERAL IV DATA: Not applicable SIGNED BY: RT Baltazar Cela(R) July 01, 2024 10:58 AM [facility] POSTPROC EVALon 025 [facility] POSTPROC EVAL HNO ID: [id number] Author: DANA HOWE MD Service: Anesthesiology Author Type: Anesthesiologist Type: Anesthesia Postprocedure Evaluation Filed: 07/01/2024 12:06 Note Text: POST ANESTHESIA EVALUATION NOTE : 1975 Procedure Summary Date: 07/01/24 Room / Location: OR03 / OR Anesthesia Start: 0756 Anesthesia Stop: 1026 Procedure: ARTHROPLASTY REPLACE JOINT TOTAL HIP (Right: [...] July 01, 2024 TIME: 12:06 PM CSN: [id number] [facility] ANES PRE-OPon 07-01-2024 ANES PRE-OP HNO ID: [id number] Author: DANA HOWE MD Service: Anesthesiology Author [...] and consent discussed: yes. Patient / Responsible Republican agrees to proceed: yes Patient / Surrogate [...] July 01, 2024 TIME: 7:27 AM CSN: [id number] [facility] BRIEF OP NOTon 07-01-2024 BRIEF OP NOT HNO ID: [id number] Author: MONIK CONSTANTINO MD Service: Orthopaedic Surgery Author Type: Resident Type: Brief Op Note Filed: 07/01/2024 09:54 Note Text: BRIEF OP NOTE LOG ID: [id number] Surgery/Procedure Date: 07/01/2024 Incision/Procedure Start Time: 8:43 AM Incision Close/Procedure End Time: Surgeon(s)/Procedur alist(s) and Agronomy Advisor(s): Surgeons and Role: * Lois Mckeon MD [...] 01, 2024 TIME: 9:54 AM PAGER/CONTACT #: [phone] [facility] CASE MGT INIT aNta 2024 CASE MGT INIT MCKENZIE HNO ID: [id number] Author: ALISIA GILMORE RN Service: ? Author Type: Registered Nurse Type: Care Mgt Initial Assessment Filed: 07/01/2024 13:31 Note Text: CARE MANAGEMENT: ASSESSMENT AND DISCHARGE PLAN SERVICE DATE: July 01, 2024 SERVICE TIME: 1:29 pm PCP: Essie Ryan CNP, STRUCTURAL METAL WORKER Primary Contact: Extended Emergency Contact Information Primary Emergency Contact: Sruthi Sahu Address: [address] [place] [address] Relation: Spouse Admission Status: Extended Recovery Insurance Provider: [facility] MEDICAID OF [place] Discharge Planning requested by: Per Department Practice Potential Transition Plans Home;Home Care Advance Directives Current Advance Directive: None Rail Transit Operator Attempted to Assist with AD Completion: [...] General wellness, Be able to go home [facility] Explained: [facility] Given: Yes Level of Care [...] DATE: July 01, 2024 TIME: 1:29 PM [facility] CONSULTon 07-01-2024 CONSULT HNO ID: [id number] Author: REGINE MTZ MD Service: General Internal Medicine Author Type: Physician Type: Consults Filed: 07/01/2024 14:04 Note Text: INTERNAL MEDICINE CONSULT HISTORY AND PHYSICAL PLEASE DO NOT REMOVE FROM THE CHART OR MODIFY PRINTED COPY Patient Name: Stacey Sahu PRIMARY CARE PHYSICIAN: Essie Ryan CNP, STRUCTURAL METAL WORKER CONSULTING PHYSICIAN: Lois Mckeon MD MD DATE [...] flush bag 20 (more content not included)... [facility] NURSING PROGon 07-01-2024 NURSING PROG HNO ID: [id number] Author: DINORAH NICOLAS, PATIENCE Service: Nursing Author Type: Registered Nurse Type: Nursing Progress Note Filed: 07/01/2024 15:53 Note Text: Discharge education completed with patient and spouse. All questions answered at this time. Pt left unit via wheelchair with transport staff. [facility] OPERATIVE NOon 07-01-2024 OPERATIVE NO HNO ID: [id number] Author: LOIS MCKEON MD Service: Orthopaedic Surgery Author Type: Physician Type: Operative Report Filed: 07/01/2024 10:57 Note Text: OPERATIVE/PROCEDURE REPORT LOG ID: [id number] Surgery/Procedure Date: 07/01/2024 Incision/Procedure Start Time: 8:43 AM Incision Close/Procedure End Time: 10:11 AM Surgeon(s)/Tiffany garcia(s) and Agronomy Advisor(s): Surgeons and Role: * Lois Mckeon MD [...] Implant Name Type Inv. Item Serial No. Software Quality Assurance Specialist Lot No. [id number] No. Used Action PIN STEINMANN 3/16IN STAINLESS STEEL 9IN FIXATION TROCAR POINT ONE END - [id number] Pin PIN STEINMANN 3/16IN STAINLESS STEEL 9IN FIXATION TROCAR POINT ONE END BRASSELER [id number] Right 1 Non-Implant INSERT ACETABULAR 32MM 0D D HIP X3 TRIDENT STERILE LATEX FREE - [id number] Joint - Hip INSERT ACETABULAR 32MM 0D D HIP X3 TRIDENT STERILE LATEX FREE AYDEE [id number] Right 1 Implanted SHELL TRIDENT II 48MM D TRITANIUM ACETABULAR 3 SCREW HOLE CLUSTER STERILE - [id number] Joint - Hip SHELL TRIDENT II 48MM D TRITANIUM ACETABULAR 3 SCREW HOLE CLUSTER STERILE [employer] [id number] Right 1 Implanted SCREW TRIDENT II 6.5MM 30MM BONE LOW PROFILE HEXAGONAL STERILE - [id number] Screw SCREW TRIDENT II 6.5MM 30MM BONE LOW PROFILE HEXAGONAL STERILE [employer] [id number] Right 1 Implanted STEM FEMORAL 8X99MM SIZE 2 HIGH INSIGNIA COLLARED - [id number] Joint - Hip STEM FEMORAL 8X99MM SIZE 2 HIGH INSIGNIA COLLARED AYDEE [id number] Right 1 Implanted HEAD V40 32MM -4MM OFFSET TAPER BIOLOX DELTA FEMORAL HIP - [id number] Joint - Hip HEAD V40 32MM -4MM OFFSET TAPER BIOLOX DELTA FEMORAL HIP [employer] [id number] Right 1 Implanted Problem List: ACTIVE PROBLEM LIST (spontaneous vaginal delivery) x 4 Crohn's disease without complication (HCC) [id number] Pulmonary Htn (Hcc) Obese Nirmala (Obstructive Sleep [...] suture. Subcutaneous ti (more content not included)... [facility] THERAPY NTon 07-01-2024 THERAPY NT HNO ID: [id number] Author: YUMIKO MARAVILLA, OT/L Service: Occupational Therapy Author Type: Occupational Therapist Type: Therapy (PT/OT/Speech/Resp) Filed: 07/01/2024 14:14 Note Text: Occupational Therapy Evaluation Summary SERVICE DATE: 07/01/2024 SERVICE TIME: 1350 to 1405 ROOM: [place] [address] OT 6 Clicks Score: 22 Total Joint [...] of Occupational Therapy, Standing Balance to Improve [place] with ADLs/Self-Care, Transfer - Car, Toileting , [...] Minimal Assistance, Additional Information with use of plate stacker, family plans to assist with socks Toileting [...] DATE: July 01, 2024 TIME: 2:14 PM [facility] THERAPY NT HNO ID: [id number] Author: ANIYA SHAH PT Service: Physical Therapy Author Type: Physical Therapist Type: Therapy (PT/OT/Speech/Resp) Filed: 07/01/2024 13:52 Note Text: Physical Therapy Evaluation Summary SERVICE DATE: 07/01/2024 SERVICE TIME: 1307 to 1346 ROOM: [place] [address] PT 6 Clicks Score: 22 Total Joint [...] on feet TREATMENT INTERVENTIONS Evaluation, Therapeutic Exercise (88951), Gait Training (41845) Timed Code Treatment (minutes): 24 Skilled Treatment [...] Patient does not have a cane. Used SCHOOL OCCUPATIONAL THERAPIST to simulate cane GOALS Patient will demonstrate [...] DATE: July 01, 2024 TIME: 1:51 PM [facility] XR PELVIS 1V APon 07-01-2024 XR PELVIS [...] recent surgery. Please see detailed operative report. Meeting Facilitator: [facility] Transcribe Date/Time: Jul 01 2024 11:05A Dictated by : CHELY YU MD This examination was interpreted and the report reviewed and electronically signed by: CHELY YU MD on Jul 01 2024 11:05AM EST [id number] [id number] [facility] XR PELVIS 1V AP * * [...] Intraoperative examination for surgical planning and documentation. Meeting Facilitator: [facility] Transcribe Date/Time: Jul 01 2024 11:01A Dictated by : RADHA CARVAJAL DO This examination was interpreted and the report reviewed and electronically signed by: RADHA CARVAJAL DO on Jul 01 2024 11:02AM EST [id number] [id number] [facility] URINE CULTURE, ROUTINEon Bacteria identified Cx Nom (U) Urine Culture, Routine [facility] Bacteria identified Cx Nom (U) Mixed urogenital guillermina [facility] Bacteria identified Cx Nom (U) 10,000-25,000 colony forming units per mL [facility] Bacteria identified Cx Nom (U) Performed at: [facility] Bacteria identified Cx Nom (U) [address], [place] [id number] [facility] Bacteria identified Cx Nom (U) [facility] Worker: Avni Schmid PhD, Phone: [phone] [facility] Basic metabolic 2000 panelon 06-05-2024 Anion gap [Moles/Vol] 11 mmol/L Normal 8-15 [facility] Comment on above: Order Comment: Speci men Type: BLOOD SPECIMENOrdering Facility: [facility] Address: [address] [place] [address] Performed By: #### 5 0190-8, 22020-1, 2275-4 ####[facility] [id number] [place] [address] [place] Calcium [Mass/Vol] 9.6 mg/dL Normal 8.5-10.2 [facility] Comment on above: Order Comment: Speci men Type: BLOOD SPECIMENOrdering Facility: [facility] Address: [address] [place] [address] Performed By: #### 5 0190-8, 03771-5, 2275-4 ####[facility] [id number] [place] [address] [place] Chloride [Moles/Vol] 104 mmol/L Normal 98-107 [facility] Comment on above: Order Comment: Speci men Type: BLOOD SPECIMENOrdering Facility: [facility] Address: [address] [place] [address] Performed By: #### 5 0190-8, 53198-3, 2275- ####[facility] [id number] [place] [address] [place] CO2 [Moles/Vol] 25 mmol/L Normal 22-30 [facility] Comment on above: Order Comment: Speci men Type: BLOOD SPECIMENOrdering Facility: [facility] Address: [address] [place] [address] Performed By: #### 5 0190-8, 22959-9, 2275-09 ####[facility] [id number] [place] [id number] [place] Creatinine [Mass/Vol] 0.70 mg/dL Normal 0.58-0.96 [facility] Comment on above: Order Comment: Speci men Type: BLOOD SPECIMENOrdering Facility: [facility] Address: [address] [place] [address] Performed By: #### 5 0190-8, 92787-8, 2275-09 ####[facility] [id number] [place] [address] [place] Creatinine and Glomerular filtration rate.predicted panel (S/P/Bld) 108 mL/min/1.73m??? Normal >=60 [facility] Comment on above: Order Comment: Speci men Type: BLOOD SPECIMENOrdering Facility: [facility] Address: [address] [place] [address] Result Comment: Etta mated Glomerular Filtration Rate [...] actual GFR. Performed By: #### 5 0190-8, 56896-6, 2275-09 ####[facility] [id number] [place] [id number] [place] Glucose [Mass/Vol] 88 mg/dL Normal 74-99 [facility] Comment on above: Order Comment: Speci men Type: BLOOD SPECIMENOrdering Facility: [facility] Address: [address] [place] [address] Result Comment: The [place] [employer] (ADA) provides guidance for cutoff [...] Standards of Medical Care in Diabetes 2016, [place] [employer]. Diabetes Care. 2016.39(Suppl 1). Performed By: #### 5 0190-8, 08174-8, 2275-09 ####[facility] [id number] [place] [address] [place] Potassium [Moles/Vol] 4.9 mmol/L Normal 3.7-5.1 [facility] Comment on above: Order Comment: Speci men Type: BLOOD SPECIMENOrdering Facility: [facility] Address: [address] [place] [address] Performed By: #### 5 0190-8, 56421-1, 2275-09 ####[facility] [id number] [place] [address] [place] Sodium [Moles/Vol] 140 mmol/L Normal 136-144 [facility] Comment on above: Order Comment: Speci men Type: BLOOD SPECIMENOrdering Facility: [facility] Address: [address] [place] [address] Performed By: #### 5 0190-8, 71617-1, 2275-09 ####[facility] [id number] [place] [address] [place] Urea nitrogen [Mass/Vol] 17 mg/dL Normal 7-21 [facility] Comment on above: Order Comment: Speci men Type: BLOOD SPECIMENOrdering Facility: [facility] Address: [address] [place] [address] Performed By: #### 5 0190-8, 01778-0, 2276-4 ####[facility] [id number] [place] [address] [place] CBC W Auto Differential pane l (Bld)on 06-05-2024 Basophils (Bld) [#/Vol] 0.10 10*3/uL Normal <0.11 [facility] Comment on above: Order Comment: Speci men Type: BLOOD SPECIMEN Ordering Facility: [facility] Address: [address] [place] [address] Performed By: #### 5 7021-8 #### [facility] CLIA [id number] [address] [place] [address] [place] Basophils/100 WBC (Bld) 1.2 % Normal [facility] Comment on above: Order Comment: Speci men Type: BLOOD SPECIMEN Ordering Facility: [facility] Address: [address] [place] [address] Performed By: #### 5 7021-8 #### [facility] CLIA [id number] [address] [place] [address] [place] Differential cell count method Nom (Bld) Auto Normal [facility] Comment on above: Order Comment: Speci men Type: BLOOD SPECIMEN Ordering Facility: [facility] Address: [address] [place] [address] Performed By: #### 5 7021-8 #### [facility] CLIA [id number] [address] [place] [address] [place] Eosinophils (Bld) [#/Vol] 0.52 10*3/uL High <0.46 [facility] Comment on above: Order Comment: Speci men Type: BLOOD SPECIMEN Ordering Facility: [facility] Address: [address] [place] [address] Performed By: #### 5 7021-8 #### [facility] CLIA [id number] [address] [place] [address] [place] Eosinophils/100 WBC (Bld) 6.0 % Normal [facility] Comment on above: Order Comment: Speci men Type: BLOOD SPECIMEN Ordering Facility: [facility] Address: [address] [place] [address] Performed By: #### 5 7021-8 #### [facility] CLIA [id number] [address] [place] [address] [place] Erythrocyte distribution width (RBC) [Ratio] 12.5 % Normal 11.5-15.0 [facility] Comment on above: Order Comment: Speci men Type: BLOOD SPECIMEN Ordering Facility: [facility] Address: [address] [place] [address] Performed By: #### 5 7021-8 #### [facility] CLIA [id number] [address] [place] [address] [place] Hematocrit (Bld) [Volume fraction] 44.2 % Normal 36.0-46.0 [facility] Comment on above: Order Comment: Speci men Type: BLOOD SPECIMEN Ordering Facility: [facility] Address: [address] [place] [address] Performed By: #### 5 7021-8 #### [facility] CLIA [id number] [address] [place] [address] [place] Hemoglobin (Bld) [Mass/Vol] 13.8 g/dL Normal 11.5-15.5 [facility] Comment on above: Order Comment: Speci men Type: BLOOD SPECIMEN Ordering Facility: [facility] Address: [address] [place] [address] Performed By: #### 5 7021-8 #### [facility] CLIA [id number] [address] [place] [address] [place] Immature granulocytes (Bld) [#/Vol] 10*3/uL Normal <0.10 [facility] Comment on above: Order Comment: Speci men Type: BLOOD SPECIMEN Ordering Facility: [facility] Address: [address] [place] [address] Performed By: #### 5 7021-8 #### [facility] CLIA [id number] [address] [place] [address] [place] Immature granulocytes/100 WBC (Bld) 0.2 % Normal [facility] Comment on above: Order Comment: Speci men Type: BLOOD SPECIMEN Ordering Facility: [facility] Address: [address] [place] [address] Performed By: #### 5 7021-8 #### [facility] CLIA [id number] [address] [place] [address] [place] Lymphocytes (Bld) [#/Vol] 2.89 10*3/uL Normal 1.00-4.00 [facility] Comment on above: Order Comment: Speci men Type: BLOOD SPECIMEN Ordering Facility: [facility] Address: [address] [place] [address] Performed By: #### 5 7021-8 #### [facility] CLIA [id number] [address] [place] [address] [place] Lymphocytes/100 WBC (Bld) 33.4 % Normal [facility] Comment on above: Order Comment: Speci men Type: BLOOD SPECIMEN Ordering Facility: [facility] Address: [address] [place] [address] Performed By: #### 5 7021-8 #### [facility] CLIA [id number] [address] [place] [address] [place] MCH (RBC) [Entitic mass] 28.6 pg Normal 26.0-34.0 [facility] Comment on above: Order Comment: Speci men Type: BLOOD SPECIMEN Ordering Facility: [facility] Address: [address] [place] [address] Performed By: #### 5 7021-8 #### [facility] CLIA [id number] [address] [place] [address] [place] MCHC (RBC) [Mass/Vol] 31.2 g/dL Normal 30.5-36.0 [facility] Comment on above: Order Comment: Speci men Type: BLOOD SPECIMEN Ordering Facility: [facility] Address: [address] [place] [address] Performed By: #### 5 7021-8 #### [facility] CLIA [id number] [address] [place] [address] [place] MCV (RBC) [Entitic vol] 91.5 fL Normal 80.0-100.0 [facility] Comment on above: Order Comment: Speci men Type: BLOOD SPECIMEN Ordering Facility: [facility] Address: [address] [place] [address] Performed By: #### 5 7021-8 #### [facility] CLIA [id number] [address] [place] [address] [place] Monocytes (Bld) [#/Vol] 0.66 10*3/uL Normal <0.87 [facility] Comment on above: Order Comment: Speci men Type: BLOOD SPECIMEN Ordering Facility: [facility] Address: [address] [place] [address] Performed By: #### 5 7021-8 #### [facility] CLIA [id number] [address] [place] [address] [place] Monocytes/100 WBC (Bld) 7.6 % Normal [facility] Comment on above: Order Comment: Speci men Type: BLOOD SPECIMEN Ordering Facility: [facility] Address: [address] [place] [address] Performed By: #### 5 7021-8 #### [facility] CLIA [id number] [address] [place] [address] [place] Neutrophils (Bld) [#/Vol] 4.45 10*3/uL Normal 1.45-7.50 [facility] Comment on above: Order Comment: Speci men Type: BLOOD SPECIMEN Ordering Facility: [facility] Address: [address] [place] [address] Performed By: #### 5 7021-8 #### [facility] CLIA [id number] [address] [place] [address] [place] Neutrophils/100 WBC (Bld) 51.6 % Normal [facility] Comment on above: Order Comment: Speci men Type: BLOOD SPECIMEN Ordering Facility: [facility] Address: [address] [place] [address] Performed By: #### 5 7021-8 #### [facility] CLIA [id number] [address] [place] [address] [place] Nucleated RBC (Bld) [#/Vol] 10*3/uL Normal <0.01 [facility] Comment on above: Order Comment: Speci men Type: BLOOD SPECIMEN Ordering Facility: [facility] Address: [address] [place] [address] Performed By: #### 5 7021-8 #### [facility] CLIA [id number] [address] [place] [address] [place] Nucleated RBC/100 WBC (Bld) [Ratio] 0.0 /100 WBC Normal [facility] Comment on above: Order Comment: Speci men Type: BLOOD SPECIMEN Ordering Facility: [facility] Address: [address] [place] [address] Performed By: #### 5 7021-8 #### [facility] CLIA [id number] [address] [place] [address] [place] Platelet mean volume (Bld) [Entitic vol] 11.5 fL Normal 9.0-12.7 [facility] Comment on above: Order Comment: Speci men Type: BLOOD SPECIMEN Ordering Facility: [facility] Address: [address] [place] [address] Performed By: #### 5 7021-8 #### [facility] CLIA [id number] [address] [place] [address] [place] Platelets (Bld) [#/Vol] 319 10*3/uL Normal 150-400 [facility] Comment on above: Order Comment: Speci men Type: BLOOD SPECIMEN Ordering Facility: [facility] Address: [address] [place] [address] Performed By: #### 5 7021-8 #### [facility] CLIA [id number] [address] [place] [address] [place] RBC (Bld) [#/Vol] 4.83 10*6/uL Normal 3.90-5.20 [facility] Comment on above: Order Comment: Speci men Type: BLOOD SPECIMEN Ordering Facility: [facility] Address: [address] [place] [address] Performed By: #### 5 7021-8 #### [facility] CLIA [id number] [address] [place] [address] [place] WBC (Bld) [#/Vol] 8.64 10*3/uL Normal 3.70-11.00 [facility] Comment on above: Order Comment: Speci men Type: BLOOD SPECIMEN Ordering Facility: [facility] Address: [address] [place] [address] Performed By: #### 5 7021-8 #### [facility] CLIA [id number] [address] [place] [address] [place] [facility] CBC W AUTO DIFF BLDon Basophils/100 WBC (Bld) 1.2 % [facility] BASOPHILS # BLD AUTO 0.1 [facility] DIFFERENTIAL METHOD BLD Auto [facility] EOSINOPHIL # BLD AUTO 0.52 High [facility] LYMPHOCYTES # BLD AUTO 2.89 [facility] MONOCYTES # BLD AUTO 0.66 [facility] NEUTROPHILS # BLD AUTO 4.45 [facility] NRBC # BLD AUTO <0.01 [facility] NRBC/100 WBC BLD-RTO 0 /100 WBC [facility] PLATELET # BLD AUTO 319 [facility] PMV BLD AUTO 11.5 fL 9.0 - 12.7 fL [facility] WBC # BLD AUTO 8.64 [facility] Eosinophils/100 WBC (Bld) 6 % [facility] Erythrocyte distribution width (RBC) [Ratio] 12.5 % 11.5 - 15.0 % [facility] Hematocrit (Bld) [Volume fraction] 44.2 % 36.0 - 46.0 % [facility] Hemoglobin (Bld) [Mass/Vol] 13.8 g/dL 11.5 - 15.5 g/dL [facility] IMM GRANULOCYTES # BLD AUTO <0.03 [facility] IMM GRANULOCYTES/LEUK NFR BLD AUTO 0.2 % [facility] Interpretation and review of laboratory results Abnormal [facility] Lymphocytes/100 WBC (Bld) 33.4 % [facility] MCH (RBC) [Entitic mass] 28.6 pg 26.0 - 34.0 pg [facility] MCHC (RBC) [Mass/Vol] 31.2 g/dL 30.5 - 36.0 g/dL [facility] MCV (RBC) [Entitic vol] 91.5 fL 80.0 - 100.0 fL [facility] Monocytes/100 WBC (Bld) 7.6 % [facility] Neutrophils/100 WBC (Bld) 51.6 % [facility] RBC (Bld) [#/Vol] 4.83 10*6/uL 3.90 - 5.2 0 m/uL [facility] Specimen Type: BLOOD SPECIMEN Ordering Facility: [facility] Address: [address] [place] [address] Original Ordering Provider: [facility]2024 ECG COMPLETE Ventricular Rate : 79 BPM Atrial Rate : 79 BPM P-R Interval : 124 ms QRS Duration : 102 ms Q-T Interval : 390 ms QTC Calculation(Bazett) : 447 ms Calculated P [place]field : 56 degrees Calculated R [place] : 72 degrees Calculated T [place] : 65 degrees NORMAL SINUS RHYTHM NORMAL ECG Confirmed by PETR LUCIANO MD ([id number]) on 2024 2:12:45 PM NAME : STACEY SAHU PID : [id number] : 1975 Gender : Female Race : ORD : [id number] Procedure Date : Jun 05 2024 10:36:34 Edit Date : 2024 14:15:04 Diagnosis: NORMAL SINUS RHYTHM NORMAL ECG Confirmed by PETR LUCIANO MD ([id number]) on 2024 2:12:45 PM Test Reason : PRE OP Location : 545 : [facility] Overread By : PETR LUCIANO MD Edited By : PETR LUCIANO MD Referred By : LOIS MCKEON Acquired by : Lay CHOW [facility] Ferritin SerPl-ncon 2023 Ferritin [Mass/Vol] 129.0 ng/mL Normal 14.7-205.1 [facility] Comment on above: Order Comment: Speci men Type: BLOOD SPECIMENOrdering Facility: [facility] Address: [address] [place] [address] Performed By: #### 5 0190-8, 02766-0, 2276-4 ####[facility] [id number] [place] [address] [place] HISTORY PHYSICALon HISTORY PHYSICAL HNO ID: [id number] Author: NEGRITA TEJEDA APRN.CNP Service: ? Author Type: Nurse Practitioner Type: H&P Filed: 06/06/2024 10:26 Note Text: [facility] HISTORY AND PHYSICAL EXAMINATION SERVICE DATE: 06/05/2024 SERVICE TIME: 9:56 AM PRIMARY CARE PHYSICIAN: Essie Ryan CNP, STRUCTURAL METAL WORKER REASON FOR VISIT: Stacey Sahu is a [...] STOP-Bang Score: 0 (Non-compliant with CPAP ) [id number] Score: Age: <65 Sex: female [id number] Score: ARISCAT Score: Age: <=50 Preoperative SpO2: [...] x 4 Crohn's disease without complication (HCC) [id number] Pulmonary Htn (Hcc) Obese Nirmala (Obstructive Sleep [...] (obstructive slee (more content not included)... Normal [facility] Iron and Iron binding capaci ty panelon 06-05-2024 Iron [Mass/Vol] 91 ug/dL Normal 41-186 [facility] Comment on above: Order Comment: Speci men Type: BLOOD SPECIMENOrdering Facility: [facility] Address: [address] [place] [address] [place] [address] Performed By: #### 5 0190-8, 47888-1, 4 ####[facility] [id number] [place] [address] [place] Iron binding capacity [Mass/Vol] Normal [facility] Comment on above: Order Comment: Speci men Type: BLOOD SPECIMENOrdering Facility: [facility] Address: [address] [place] [address] Result Comment: Unab le to calculate due to hemolysis. Performed By: #### 5 0190-8, 62985-7, 2275- ####[facility] [id number] [place] [address] [place] Iron/TIBC [Molar ratio] Normal [facility] Comment on above: Order Comment: Speci men Type: BLOOD SPECIMENOrdering Facility: [facility] Address: [address] [place] [address] Result Comment: Unab le to calculate due to hemolysis. Performed By: #### 5 0190-8, 27967-9, 4 ####[facility] [id number] [address] [place] 05-09-2024 CNPN Telephone (ABHINAV) ---- STACEY SAHU ([id number]) 1975 F Date Time Provider Department 05/09/24 LOIS MCKEON During your visit today, we recorded the following information about you: Lee Ann Valladares 05/09/2024 12:59 PM Signed PSS calling from Dr Rossi's office to ask how soon the PT could be scheduled for surgery for inspire implant, nerve stimulator. General for 3 hours. Please advise [phone] ask to speak with Alejandra or [place]. Allergies As of Date: 05/09/2024 Noted Allergy Reaction PENICILLINS 07/27/2016 16 - Unknown Date Reviewed: 04/16/2024 Reviewed by: Clarissa Nelson MA - Fully Assessed Reason for Visit: Question [0350] Cmt: See note Prescriptions as of 06/01/2024 [...] Status:Closed by LEE ANN VALLADARES on 06/01/24 [facility] CNOVon 04-16-2024 CNOV Office Visit (ORTHST) ---- STACEY SAHU ([id number]) 1975 F Date Time Provider Department 04/16/24 [...] Order(s):CONSULT TO PHYSICAL THERAPY [9032] Order #: [id number]: 1 FUTURE BATH/SHOWER CHAIR [[id number]] Order #: [id number] TOILET RAIL, EACH [[id number]] Order #: [id number] RAISED TOILET SEAT [[id number]] Order #: [id number] WALKER FOLDING WHEELED W/O S [[id number]] Order #: [id number] Prescriptions as of 04/16/2024 - atorvastatin (LIPITOR) [...] Encounter Status:Closed by LOIS MCKEON on 04/16/24 [facility] CNOVon 03-19-2024 CNOV Office Visit (OTMBHT) ---- STACEY SAHU ([id number]) 1975 F Date Time Provider Department 03/19/24 9:30 AM [facility] During your visit today, we recorded the following information about you: Clarissa Zacarias, PATIENCE 03/19/2024 10:[address] Mckeon has ordered a cream that will be delivered to your home. The company, [employer], will call or text you from a [phone] phone number. Please reply or answer the [...] her quality of life. 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 Pain [...] - Fully Assessed Reason for Visit: New [923003] Cmt: Surgical consult Primary Visit Diagnosis:Pain of right hip [M25.551] Other Visit Diagnosis:Primary osteoarthritis of right hip [M16.11] Order(s):MRI HIP WO IVCON RIGHT [[id number]] Order #: [id number] FUTURE Prescriptions as of 03/19/2024 - atorvastatin [...] be delivered to your home. The company, [employer], will call or text you from a [phone] phone number. Please reply or answer the call to start the process. If you do not hear from them within 48 hours, please call . Letter Text Encounter Status:Closed by LOIS MCKEON on 03/19/24 Normal [facility] XR HIP 3V PELV+ AP/LAT RTon 03-19-2024 [...] Mild right hip osteoarthritis, similar to 11/17/2021. Meeting Facilitator: AGAPITO Transcribe Date/Time: Mar 19 2024 9:10A Dictated by : MELISSA MODI MD This examination was interpreted and the report reviewed and electronically signed by: MELISSA MODI MD on Mar 19 2024 9:11AM EST [id number] Normal [facility] XR Pelvis and Hip - right AP and Lateral frogon 03-19-2024 IMPRESSION: Mild right hip osteoarthritis, similar to 11/17/2021. Meeting Facilitator: PSCB Transcribe Date/Time: Mar 19 2024 9:10A [...] right lower quadrant. DIVISION OF RADIOLOGY Provider, [facility] [place] - 03/19/2024 * * *Final Report* * [...] Mild right hip osteoarthritis, similar to 11/17/2021. Meeting Facilitator: AGAPITO Transcribe Date/Time: Mar 19 2024 9:10A Dictated by : MELISSA MODI MD This examination was interpreted and the report reviewed and electronically signed by: MELISSA MODI MD on Mar 19 2024 9:11AM EST [facility] Radiology Study observation (narrative) [facility] XR Pelvis and Hip - right AP and Lateral frogOrdered By: [facility] Provider on 03-19-2024 [facility] CNPNon 03-18-2024 CNPN Telephone (OTMBHT) ---- STACEY SAHU ([id number]) 1975 F Date Time Provider Department 03/18/24 LOIS MCKEON [facility] During your visit today, we recorded the following information about you: Lupe Betancourt 03/18/2024 4:00 PM Signed Name of Caller: stacey Relationship to patient: patient Last visit in this department: Visit date not found Reason for Call: Other : has questions about what to expect at her appt on 03/19 Callback number: [phone] Clarissa Zacarias RN 03/18/2024 4:57 PM Signed [...] by: Nadja Moore MA - Fully Assessed Prescriptions as of [...] Status:Closed by LUPE BETANCOURT on 03/22/24 Normal [facility] 29on 03-06-2024 29 Addended by: KAMINI LOVE on: 03/08/2024 11:39 AM Modules accepted: Orders Normal [facility] ALL LIPID PROFILE (FASTING)o n 03-06-2024 CHOL [...] HIGH CARDIOVASCULAR RISK Magnesium [Mass/Vol] 150.0 mg/dL [facility] Comment on above: <100 mg/dl OPTIMAL 100-129 mg/dl NEAR OR ABOVE OPTIMAL 130-159 mg/dl BORDERLINE HIGH 160-189 mg/dl HIGH >190 mg/dl VERY HIGH Magnesium [Mass/Vol] 19.6 mg/dL [facility] Triglyceride [Mass/Vol] 98 mg/dL NINF - 150 mg/dL [facility] L[facility]ELon Albumin [Mass/Vol] 3.2 g/dL Low 3.4 - 5.0 g/dL [facility] ALBUMIN GLOBULIN RATIO 1.0 [facility] ALP [Catalytic activity/Vol] 59 U/L 46 - 116 U/L [facility] ALT [Catalytic activity/Vol] 23 U/L 14 - 59 U/L [facility] AST [Catalytic activity/Vol] 14 U/L Low 15 - 37 U/L [facility] Bilirubin [Mass/Vol] 0.3 mg/dL 0.2 - 1 .0 mg/dL [facility] Bilirubin.indirect [Mass/Vol] 0.1 mg/dL 0.0 - 0.2 mg/dL [facility] Globulin (S) [Mass/Vol] 3.2 g/dL [facility] Protein [Mass/Vol] 6.4 g/dL 6.4 - 8.2 g/dL [facility] No Panel Informationon 03-06 Interpretation and review of laboratory results Abnormal [facility] Follow-up visit [id number] Stacey Sahu 1975 Date Provider Department Center 03/06/2024 TRINH BASHIR [facility] SLEEP [facility] Family History Problem Relation Age of Onset Coronary artery disease Father Family Status - Relation Status Age at Father Level of Service:78827 [place] OFFICE/OUTPATIENT NEW MODERATE MDM 45 MINUTES Reason for Visit and Comments: New Patient [632] - Pt was referred for an Inspire sleep apnea evaluation. Pt follows with pulmonary, Dr. Rosa in [place]. [facility] Follow-up visit [id number] Stacey Sahu 1975 F Date Provider Department Center 03/06/2024 TINO PRATER RAVI [facility] Family History Problem Relation Age of Onset Coronary artery disease Father Family Status - Relation Status Age at Father Level of Service:20096 [place] OFFICE/OUTPATIENT ESTABLISHED LOW MDM 20 MIN Normal [facility] COVID/FLU/RSV RT-PCRon 07-11 SARS-CoV-2 (COVID-19) RNA IZAIAH+probe Ql (Unsp spec) Positive [facility] Other COVID/FLU/RSV RT-PCR Negative [facility] Other CHEMISTRYOrdered By: SYSTEM SYSTEM on 02-01-2023 [...] : 1975 Gender:F Ordering : [facility] [employer] Admission #: [id number] Family : Order #: [id number] CLICK HERE TO VIEW EXAM ECHOCARDIOGRAM REPORT [...] Gradient: 4.21 mm[Hg] Right Atrium Dictated by: Liz Moran M.D. on 11/22/2022 at 17:42 Approved by: Liz Moran M.D. on 11/22/2022 at 17:44 Normal [facility] US THYROID FN ASP BXon 10-28 THYROID FN ASP BX Begin Addendum #1 COLLECTED DATE/TIME: 10/18/2022 13:19 EDT Final Diagnosis Report for [facility] [place] (A/B) SOFT TISSUE MASS CEPHALAD TO THYROID; FINE NEEDLE ASPIRATION: -ATYPIA OF UNDETERMINED SIGNIFICANCE. -CYST CONTENT. NOTE: Sparsely cellular aspirate compromised of follicular cells with architectural atypia. Molecular testing or a repeat aspirate may be helpful if clinically indicated. The final diagnosis is based on a microscopic exam of veterans service representative sections. 10/25/[address] [...] (FNA). 2. Pathology results are pending. Normal [facility] XR KUB 1 VIEWon 10-27-2022 XR [...] by: PAULETTE GALVAN Date: 2022-10-27 07:19 Normal [facility] CT NECK ST W CONon CT [...] PREET RODRIGEZ Date: 2022-10-05 08:22 Normal [facility] CARDIAC DENZEL ADMITon 023 CK [Catalytic activity/Vol] 149 U/L Normal 26-192 [facility] Comment on above: Performed By: #### SHIVANI HARPER, CMP ####[facility] [address] [place] [id number]. Nita Iverson CK.MB [Mass/Vol] 1.51 ng/mL Normal <=3.60 [facility] Comment on above: Performed By: #### SHIVANI HARPER, CMP ####[facility] [address] [place] [id number]. Nita Iverson HSTROP 4.1 pg/mL Normal 4.0-51.3 [facility] Comment on above: Result Comment: CUT- OFF POINTS HAVE BEEN ESTABLISHED BASED ON THE FOURTH UNIVERSAL DEFINITIONS OF MYOCARDIAL INFARCTION. THE UPPER REFERENCE LIMIT (URL) OF TROPONIN, DEFINED THE 99TH PERCENTILE OF cTnI DISTRIBUTION IN A REFERENCE POPULATION, HAS BEEN CONFIRMED THE DECISION THRESHOLD FOR [place] DIAGNOSIS. Performed By: #### SHIVANI HARPER, CMP ####[facility] [address] [place] [id number]. Nita Iverson ARIES 47 ng/mL Normal 9-82 [facility] Comment on above: Performed By: #### SHIVANI HARPER, CMP ####[facility] [address] [place] [address]Dr. Nita Iverson CBC AUTO DIFFon 09-21-2022 BASO # 0.1 103/ul Normal 0.0-0.1 [facility] Comment on above: Performed By: #### C BC #### [facility] [address] [address] [address] Nita Iverson Basophils/100 WBC (Bld) 0.8 % Normal 0.2-2.0 [facility] Comment on above: Performed By: #### C BC #### [facility] [address] [address] [address] Nita Iverson EO # 0.7 103/ul Normal 0.0-0.7 [facility] Comment on above: Performed By: #### C BC #### [facility] [address] [address] [address] Nita Iverson Eosinophils/100 WBC (Bld) 7.1 % Critically high 0.9-7.0 [facility] Comment on above: Performed By: #### C BC #### [facility] [address] [address] [address] Nita Iverson Erythrocyte distribution width (RBC) [Ratio] 12.3 % Normal 11.0-15.0 [facility] Comment on above: Performed By: #### C BC #### [facility] [address] [place] [address] Dr. Nita Iverson Hematocrit (Bld) [Volume fraction] 40.1 % Normal 36.0-48.0 [facility] Comment on above: Performed By: #### C BC #### [facility] [address] [address] [address] iNta Iverson Hemoglobin (Bld) [Mass/Vol] 13.6 g/dL Normal 12.0-16.0 [facility] Comment on above: Performed By: #### C BC #### [facility] [address] [address] [address] Nita Iverson IG # 0.02 10e3/ul Normal 0.00-0.03 [facility] Comment on above: Performed By: #### C BC #### [facility] [address] [place] [address] Dr. Nita Iverson IG % 0.2 % Normal 0.0-0.5 [facility] Comment on above: Performed By: #### C BC #### [facility] [address] [place] [address] Dr. Nita Iverson LYMPH # 3.0 103/ul Normal 1.2-3.8 [facility] Comment on above: Performed By: #### C BC #### [facility] [address] [place] [address] Dr. Nita Iverson Lymphocytes/100 WBC (Bld) 30.2 % Normal 20.5-60.0 [facility] Comment on above: Performed By: #### C BC #### [facility] [address] [place] [address] Dr. Nita Iverson MANUAL DIFF REQ NO Normal [facility] Comment on above: Performed By: #### C BC #### [facility] [address] [place] [address] Dr. Nita Iverson MCH (RBC) [Entitic mass] 30.0 pg Normal 26.7-34.0 [facility] Comment on above: Performed By: #### C BC #### [facility] [address] [place] [address] Dr. Nita Iverson MCHC (RBC) [Mass/Vol] 33.9 g/dL Normal 29.9-35.2 [facility] Comment on above: Performed By: #### C BC #### [facility] [address] [place] [address] Dr. Nita Iverson MCV (RBC) [Entitic vol] 88.3 fL Normal 81.0-99.0 [facility] Comment on above: Performed By: #### C BC #### [facility] [address] [place] [address] Dr. Nita Iverson MONO # 0.8 103/ul Normal 0.3-0.8 [facility] Comment on above: Performed By: #### C BC #### [facility] [address] [place] [address] Dr. Nita Iverson Monocytes/100 WBC (Bld) 7.8 % Normal 1.7-12.0 [facility] Comment on above: Performed By: #### C BC #### [facility] [address] [place] [address] Dr. Nita Iverson NEUT # 5.4 103/ul Normal 1.4-6.5 [facility] Comment on above: Performed By: #### C BC #### [facility] [address] [place] [address] Dr. Nita Iverson Neutrophils/100 WBC (Bld) 53.9 % Normal 43.0-75.0 [facility] Comment on above: Performed By: #### C BC #### [facility] [address] [place] [address] Dr. Nita Iverson Platelet mean volume (Bld) [Entitic vol] 10.4 fL Normal 9.5-13.5 [facility] Comment on above: Performed By: #### C BC #### [facility] [address] [place] [address] Dr. Nita Iverson PLT 270 103/ul Normal 150-450 [facility] Comment on above: Performed By: #### C BC #### [facility] [address] [place] [address] Dr. Nita Iverson RBC 4.54 106/ul Normal 4.20-5.40 [facility] Comment on above: Performed By: #### C BC #### [facility] [address] [place] [address] Dr. Nita Iverson WBC 10.0 103/ul Normal 4.0-11.0 [facility] Comment on above: Performed By: #### C BC #### [facility] [address] [place] [address] ABD/PELV W CONon [...] MISTY SPEARS Date: 2022-09-21 21:41 Normal [facility] ER URINE PROFILEon 3 Bilirubin Ql (U) Negative Normal NEGATIVE [facility] Comment on above: Performed By: #### U MICRO, ERUR, PREGU ####[facility] [address] [address]Dr. Nita Iverson Clarity (U) CLEAR Normal CLEAR [facility] Comment on above: Performed By: #### U MICRO, ERUR, PREGU ####[facility] [address] [place] [id number]. Nita Iverson Color (U) LT. YELLOW Normal YELLOW [facility] Comment on above: Performed By: #### U MICRO, ERUR, PREGU ####[facility] [address] [place] [address]Dr. Nita SOMMERS A micrscopic examination will be performed if indicated. Normal [facility] Comment on above: Performed By: #### U MICRO, ERUR, PREGU ####[facility] [address] [place] [address]Dr. Nita Iverson Glucose Ql (U) Negative Normal NEGATIVE [facility] Comment on above: Performed By: #### U MICRO, ERUR, PREGU ####[facility] [address] [place] [address]Dr. Nita Iverson Hemoglobin Ql (U) LARGE Abnormal NEGATIVE [facility] Comment on above: Performed By: #### U MICRO, ERUR, PREGU ####[facility] [address] [place] [address]Dr. Nita Iverson Ketones Ql (U) Negative Normal NEGATIVE [facility] Comment on above: Performed By: #### U MICRO, ERUR, PREGU ####[facility] [address] [address] [place], [place] [address]Dr. Nita Iverson LEUKOCYTES Negative Normal NEGATIVE [facility] Comment on above: Performed By: #### U MICRO, ERUR, PREGU ####[facility] [address] [place] [address]Dr. Nita Iverson Nitrite Ql (U) Negative Normal NEGATIVE The [facility] Comment on above: Performed By: #### U MICRO, ERUR, PREGU ####[facility] [address] [place] [address]Dr. Nita Iverson pH (U) 6.5 [pH] Normal 5-9 [facility] Comment on above: Performed By: #### U MICRO, ERUR, PREGU ####[facility] [address] [place], [place] [address]Dr. Nita Iverson SPEC GRAVITY 1.020 Normal 1.005-<=1.02 5 [facility] Comment on above: Performed By: #### U MICRO, ERUR, PREGU ####[facility] [address] [place] [address]Dr. Nita Iverson UA PROTEIN Negative Normal NEGATIVE/ TRACE [facility] Comment on above: Performed By: #### U MICRO, ERUR, PREGU ####[facility] [address] [place] [address]Dr. Nita Iverson UR MICRO IND INDICATED Normal [facility] Comment on above: Performed By: #### U MICRO, ERUR, PREGU ####[facility] [address] [place] [address]Dr. Nita Iverson Urobilinogen Qn (U) 1.0 {Senait'U}/dL Normal 0.2 - 1. 0 [facility] Comment on above: Performed By: #### U MICRO, ERUR, PREGU ####[facility] [address] [place] [address]Dr. Nita Iverson LIPASEon 09-21-2022 Lipase [Catalytic activity/Vol] 89.0 U/L Normal 73.0-393.0 [facility] Comment on above: Performed By: #### C MADMarita, LIPA, CMP ####[facility] [address] [place] [address]DrMaribel Iverson URon 09-21-2022 , QUAL Negative Normal NEGATIVE The [facility] Comment on above: Performed By: #### U MICRO, ERUR, PREGU ####[facility] [address] [place] [address]DrMaribel Iverson PROF 14(COMP METB)on 023 Albumin [Mass/Vol] 3.5 g/dL Normal 3.4-5.0 [facility] Comment on above: Performed By: #### C MADM, LIPA, CMP #### [facility] [address] [place] [address] [address] Nita Iverson Albumin/Globulin [Mass ratio] 1.0 {ratio} Normal [facility] Comment on above: Performed By: #### C MADM, LIPA, CMP #### [facility] [address] [place] [address] [address] Nita Iverson ALP [Catalytic activity/Vol] 67 U/L Normal 46-116 [facility] Comment on above: Performed By: #### C JANETH DENSONA, CMP #### [facility] [address] [place] [address] [address] Nita Iverson ALT [Catalytic activity/Vol] 30 U/L Normal 14-59 [facility] Comment on above: Performed By: #### C JARETT LIPA, CMP #### [facility] [address] [address] [address] Nita Iverson Anion gap [Moles/Vol] 11.8 mmol/L Normal [facility] Comment on above: Performed By: #### C JARETT LIPA, CMP #### [facility] [address] [place] [address] Dr. Nita Iverson AST [Catalytic activity/Vol] 25 U/L Normal 15-37 [facility] Comment on above: Performed By: #### C JARETT LIPA, CMP #### [facility] [address] [place] [address] Dr. Nita Iverson Bilirubin [Mass/Vol] 0.3 mg/dL Normal 0.2-1.0 [facility] Comment on above: Performed By: #### C JARETT LIPA, CMP #### [facility] [address] [place] [address] Dr. Nita Iverson Calcium [Mass/Vol] 9.2 mg/dL Normal 8.5-10.1 [facility] Comment on above: Performed By: #### C JARETT LIPA, CMP #### [facility] [address] [place] [address] Dr. Nita Iverson Chloride [Moles/Vol] 106 mmol/L Normal 98-107 [facility] Comment on above: Performed By: #### C JARETT LIPA, CMP #### [facility] [address] [place] [address] Dr. Nita Iverson CO2 [Moles/Vol] 28.7 mmol/L Normal 21.0-32.0 [facility] Comment on above: Performed By: #### C JANETH DENSONA, CMP #### [facility] [address] [address] [address] Nita Iverson Creatinine [Mass/Vol] 0.81 mg/dL Normal 0.55-1.02 [facility] Comment on above: Performed By: #### C MADM, LIPA, CMP #### [facility] [address] [address] [address] Nita Iverson EGFR-AF ARMENIAN >60 Normal >=60 [facility] Comment on above: Performed By: #### C MADM, LIPA, CMP #### [facility] [address] [address] [address] Nita Iverson EGFR-NON AF ARMENIAN >60 Normal >=60 [facility] Comment on above: Performed By: #### C MADM, LIPA, CMP #### [facility] [address] [address] [address] Nita Iverson Globulin (S) [Mass/Vol] 3.5 g/dL Normal [facility] Comment on above: Performed By: #### C MADM, LIPA, CMP #### [facility] [address] [address] [address] Nita Iverson Glucose [Mass/Vol] 106 mg/dL Normal 74-106 [facility] Comment on above: Performed By: #### C MADM, LIPA, CMP #### [facility] [address] [address] [address] Nita Iverson Potassium [Moles/Vol] 4.5 mmol/L Normal 3.5-5.1 [facility] Comment on above: Performed By: #### C MADM, LIPA, CMP #### [facility] [address] [address] [address] Nita Iverson Protein [Mass/Vol] 7.0 g/dL Normal 6.4-8.2 [facility] Comment on above: Performed By: #### C MADM, LIPA, CMP #### [facility] [address] [address] [address] Nita Iverson Sodium [Moles/Vol] 142 mmol/L Normal 136-145 [facility] Comment on above: Performed By: #### C SHIVANI DENSON, CMP #### [facility] [address] [address] [address] Nita Iverson Urea nitrogen [Mass/Vol] 12.0 mg/dL Normal 7.0-18.0 [facility] Comment on above: Performed By: #### C SHIVANI DENSON, CMP #### [facility] [address] [address] [address] Nita Iverson Urea nitrogen/Creatinine [Mass ratio] 14.8 mg/mg Normal [facility] Comment on above: Performed By: #### C SHIVANI DENSON, CMP #### [facility] [address] [address] [address] Nita Iverson URINE MICROSCOPIC ONLYon BACTERIA NONE SEEN Normal NONE SEEN [facility] Comment on above: Performed By: #### U MICRO, ERUR, PREGU ####[facility] [address] [place] [address]Dr. Nita Iverson Bacteria identified Cx Nom (U) NOT INDICATED Normal [facility] Comment on above: Performed By: #### U MICRO, ERUR, PREGU ####[facility] [address] [place] [address]DrMaribel Iverosn CAST NONE SEEN Normal NONE SEEN [facility] Comment on above: Performed By: #### U MICRO, ERUR, PREGU ####[facility] [address] [place] [address]DrMaribel Iverson Crystals LM Nom (Urine sed) NONE SEEN Normal NONE SEEN [facility] Comment on above: Performed By: #### U MICRO, ERUR, PREGU ####[facility] [address] [place] [address]DrMaribel Iverson Epithelial cells LM Ql (Urine sed) RARE Normal NONE SEEN /RARE [facility] Comment on above: Performed By: #### U MICRO, ERUR, PREGU ####[facility] [address] [place] [address]Dr. Yilan Iverson MUCOUS NONE SEEN Normal NONE SEEN [facility] Comment on above: Performed By: #### U MICRO, ERUR, PREGU ####[facility] [address] [place], [place] [address]Xw. Nita Iverson RBC 20-50 Abnormal 0-2 [facility] Comment on above: Performed By: #### U MICRO, ERUR, PREGU ####[facility] [address] [place], [place] [address]Mc. Nita Iverson WBC 2-5 Abnormal NONE SEEN [facility] Comment on above: Performed By: #### U MICRO, ERUR, PREGU ####[facility] [address] [place], [place] [address]Jl. Nita Iverson US THYROIDon 09-06-2022 US THYROID [...] PREET RODRIGEZ Date: 2022-09-06 20:19 Normal [facility] MRI HIP RT WO CONon 08-19-19 MRI HIP RT WO CON EXAM: MRI HIP RT WO CON HISTORY: Right hip pain COMPARISON: X-rays 07/07/2022 TECHNIQUE: Axial and coronal large qgquq-hf-pyrg sequencing through the pelvis and both hips. Small yycyb-ub-cgyz coronal, sagittal and axial sequencing through the [...] at approximately the 11:00 position (coronal small nyptf-tn-ocqx 14). The remainder of the labrum exhibits no gross irregularity. The left acetabulum is normal. The bilateral femoral head and acetabular cartilage exhibits no chondral or osteochondral irregularity. The pubic symphysis and sacroiliac joints are normal. Thickening and interstitial edema of the right gluteus medius tendon insertion to the greater trochanter (coronal small rokha-zy-iaaf 13 and axial large hggcf-sk-frph 23). Mild amount of adjacent edema. No abnormal bursal fluid collection. Questionable mild thickening and interstitial edema of the left gluteus minimus tendon (coronal large mtaic-zz-dsai 17 and axial large ftwgx-bw-nsjq 23 and to a lesser degree the gluteus medius tendon (coronal large mowvu-xg-gktj 21). No tendon tear, tendon tear or [...] PAULETTE PHIPPS Date: 2022-08-18 22:39 Normal [facility] PAP ACOG PANEL 2: 30 to 65on 08-11-2022 . . Normal [facility] Comment on above: Result Comment: Perf ormed at: WB Performed By: #### [id number] ####[facility] [address] [place] [address]DrMaribel Iverson Age Gdln ACOG Testing 30-65 Normal [facility] Comment on above: Performed By: #### 4 [id number] ####[facility] [address] [place] [address]Dr. Nita Iverson DIAGNOSIS: Comment Normal [facility] Comment on above: Result Comment: NEGA TIVE FOR INTRAEPITHELIAL LESION OR MALIGNANCY. Performed at: WB Performed By: #### [id number] ####[facility] [address] [place], [place] [address]DrMaribel Iverson HPV Aptima Negative Normal Negative [facility] Comment on above: Result Comment: This nucleic acid amplification test detects fourteen high-risk HPV types (16,18,31,33,35,39,45,51,52,56,58,59,66,68) without differentiation. Performed at: =G Performed By: #### [id number] ####[facility] [address] [place] [address]Dr. Nita Iverson HPV Genotype Reflex Comment Normal [facility] Comment on above: Result Comment: Crit eria not met, HPV Genotype not performed. Performed at: WB Performed By: #### [id number] ####[facility] [address] [place], [place] [address]DrMaribel Iverson Methodology: Comment Normal [facility] Comment on above: Result Comment: This liquid based ThinPrep(R) pap test was screened with the use of an image guided system. Performed at: WB Performed By: #### [id number] ####[facility] [address] [place], [place] [address]DrMaribel Iverson Note: Comment Normal [facility] Comment on above: Result Comment: The Pap smear is a screening test designed to aid in the detection of premalignant and malignant conditions of the uterine cervix. It is not a diagnostic procedure and should not be used as the sole means of detecting cervical cancer. Both false-positive and false-negative reports do occur. . Performed at: WB Performed By: #### [id number] ####[facility] [address] [place] [id number]. Nita Iverson Performed by: Comment Normal [facility] Comment on above: Result Comment: Jordana Pruett, First Aid Trainer (ASCP) Performed at: WB Performed By: #### [id number] ####[facility] [address] [place] [id number]. aJnniejennifer Iverson Specimen adequacy: Comment Normal [facility] Comment on above: Result Comment: Sati sfactory for evaluation. No endocervical component is identified. Performed at: WB Performed By: #### [id number] ####[facility] [address] [place] [address]Dr. Nita Iverson US PELVIS AND TRANSVAGon US [...] by: PAULETTE GALVAN Date: 2022-06-06 17:51 Normal [facility] CT ABD/PELV WO W CONon 04-25 [...] by: PREET RODRIGEZ Date: 2022-04-25 08:09 Normal [facility] RENAL W_WO PHARMon 2021 PA RENAL W_WO PHARM EXAMINATION: PA RENAL W_WO PHARM HISTORY: Kidney stone COMPARISON: [...] by: PAULETTE GALVAN Date: 2022-03-22 17:23 Normal [facility] XR KUB 1 VIEWon 03-22-2022 XR [...] by: PAULETTE GALVAN Date: 2022-03-22 17:57 Normal [facility] US THYROIDon 03-09-2022 US THYROID EXAMINATION: [...] IMPRESSION: Multinodular goiter, grossly stable TI-RADS: The [place] [employer] TI-RADS committee's white paper recommendations for thyroid lesions classified as TR4 (moderately suspicious) are listed below: > 1.0 cm. Follow-up ultrasound in 1, 2, 3, and 5 years. > 1.5 cm. FNA. J. Am Rosendo Radiol 2017;14:587-595. Electronically authenticated by: PAULETTE GALVAN Date: 2022-03-09 07:07 Normal [facility] CT ABD/PELV WO W CONon 03-07 [...] by: PREET RODRIGEZ Date: 2022-03-07 16:45 Normal [facility] MG MAMM SCREEN 3D GRACIE CADon 02-09-2022 MG MAMM SCREEN 3D GRACIE CAD Patient: STACEY SAHU Exam Date: 02/09/2022 : 1975 Gender:F Ordering : NIURKA RYAN [employer] Admission #: [id number] Family : Order #: [id number] CLICK HERE TO VIEW EXAM RADIOLOGY REPORT [...] colon cancer at age 56. LOCATION: [facility] BREAST COMPOSITION: Scattered areas fibroglandular [...] M.D. on 02/09/2022 at 14:53 Normal [facility] Covid-19 PCR (CVDTBH)on SARS-CoV-2 (COVID-19) RNA IZAIAH+probe Ql (Unsp spec) Detected Critically abnormal NOT DETECTED [facility] Comment on above: Result Comment: This test is not yet approved or cleared by the [place] FDA. When there are no FDA-approved or cleared tests available, and other criteria are met, FDA can make tests available under an emergency access mechanism called an Emergency Use Authorization (EUA). The EUA for this test is supported by the Director Of Physical Education of Health and Human Service's declaration that [...] longer be used). Performed By: #### C [facility] #### [facility] [address] [address] [address] Nita Iverson MR femur RT wo/w conon 12-04 MR femur RT wo/w con [facility] [place] [address] [place] [address] MRI Report Signed Patient: Stacey Sahu MR#: [id number] : 1975 Acct:[id number] Age/Sex: 46 / F ADM Date: 12/03/21 Loc: MR Room: Type: [facility] Attending Dr: Alexis Saenz II, MD [...] Stock Jr., M.D.12/04/2021 3:45 PM Dictation Location: [place] [address] Transcribed By: [facility] 12/04/21 154 Dictated By: Jorge Luis Stock Jr, MD 12/04/21 1519 Signed By: 12/04/21 1545 [facility] XR femur RT 2V*on 11-17-2021 XR femur RT 2V* [facility] [place] [address] [place] [address] XRay Report Signed Patient: Stacey Sahu MR#: [id number] : 1975 Acct:[id number] Age/Sex: 46 / F ADM Date: 11/17/21 Loc: [facility] Room: Type: [facility] Attending Dr: Alexis Saenz II, MD Ordering Provider: Alexis Saenz MD Date of Service: 11/17/21 XR/XR hip RT min 2V(w/wo pelvis)*: Right hip pain ([id number]) XR/XR femur RT 2V*: Right hip pain [...] M.D.11/17/2021 3:56 PM Dictation Location: [place] [address] Transcribed By: [facility] 11/17/21 1556 Dictated By: Vipin Iniguez DO 11/17/21 155 Signed By: 11/17/21 155 [facility] Large Joint Arthro/Inj: R gr eater trochanteric bursa [facility] Vital Signs Date Time Vital Sign Value Performing Clinician Facility 01-15-2025 11:33-0400 Body height 152.4 cm Essie Aichholz Work Phone: [facility] 01-15-2025 11:33-0400 Body mass index (BMI) [Ratio] 39 kg/m2 Essie Aichholz Work Phone: [facility] 01-15-2025 11:33-0400 Body weight 90.71 kg Essie Aichholz Work Phone: [facility] 01-15-2025 11:33-0400 Diastolic blood pressure 76 mm[Hg] Essie Aichholz Work Phone: [facility] 01-15-2025 11:33-0400 Heart rate 73 /min Essie Aichholz Work Phone: [facility] 01-15-2025 11:33-0400 SaO2% (BldA) [Mass fraction] 97 % Essie Aichholz Work Phone: [facility] 01-15-2025 11:33-0400 Systolic blood pressure 118 mm[Hg] Essie Aichholz Work Phone: [facility] 01-01-2025 13:04-0400 Body mass index (BMI) [Ratio] 39.02 kg/m2 Essie Aichholz AGRICULTURAL RESEARCH ENGINEER Work Phone: [facility] 01-01-2025 13:04-0400 Body temperature 97.81 [degF] Essie Aichholz AGRICULTURAL RESEARCH ENGINEER Work Phone: [facility] 01-01-2025 13:04-0400 Body weight 90.63 kg Essie Aichholz AGRICULTURAL RESEARCH ENGINEER Work Phone: [facility] 01-01-2025 13:04-0400 Diastolic blood pressure 80 mm[Hg] Essie Aichholz AGRICULTURAL RESEARCH ENGINEER Work Phone: [facility] 01-01-2025 13:04-0400 Heart rate 86 /min Essie Aichholz AGRICULTURAL RESEARCH ENGINEER Work Phone: [facility] 01-01-2025 13:04-0400 Respiratory rate 18 /min Essie Aichholz AGRICULTURAL RESEARCH ENGINEER Work Phone: [facility] 01-01-2025 13:04-0400 SaO2% (BldA) [Mass fraction] 97 % Essie Aichholz AGRICULTURAL RESEARCH ENGINEER Work Phone: [facility] 01-01-2025 13:04-0400 Systolic blood pressure 108 mm[Hg] Essie Aichholz AGRICULTURAL RESEARCH ENGINEER Work Phone: [facility] 09-30-2024 13:39-0400 Body mass index (BMI) [Ratio] 37.89 kg/m2 Essie Aichholz AGRICULTURAL RESEARCH ENGINEER Work Phone: [facility] 09-30-2024 13:39-0400 Body temperature 98.6 [degF] Essie Aichholz AGRICULTURAL RESEARCH ENGINEER Work Phone: [facility] 09-30-2024 13:39-0400 Body weight 88 kg Essie Aichholz AGRICULTURAL RESEARCH ENGINEER Work Phone: [facility] 09-30-2024 13:39-0400 Diastolic blood pressure 90 mm[Hg] Essie Aichholz AGRICULTURAL RESEARCH ENGINEER Work Phone: [facility] 09-30-2024 13:39-0400 Heart rate 99 /min Essie Aichholz AGRICULTURAL RESEARCH ENGINEER Work Phone: [facility] 09-30-2024 13:39-0400 Respiratory rate 18 /min Essie Aichholz AGRICULTURAL RESEARCH ENGINEER Work Phone: [facility] 09-30-2024 13:39-0400 SaO2% (BldA) [Mass fraction] 98 % Essie Aichholz AGRICULTURAL RESEARCH ENGINEER Work Phone: [facility] 09-30-2024 13:39-0400 Systolic blood pressure 118 mm[Hg] Essie Aichholz AGRICULTURAL RESEARCH ENGINEER Work Phone: [facility] 09-06-2024 08:22-0400 Body height 152.4 cm Jeff Rossi MD Work Phone: [facility] 09-06-2024 08:22-0400 Body mass index (BMI) [Ratio] 37.34 kg/m2 Jeff Rossi MD Work Phone: [facility] 09-06-2024 08:22-0400 Body temperature 97.2 [degF] Jeff Rossi MD Work Phone: [facility] 09-06-2024 08:22-0400 Body weight 86.73 kg Jeff Rossi MD Work Phone: [facility] 08-28-2024 13:28-0500 Body mass index (BMI) [Ratio] 37.46 kg/m2 Essie Aichholz AGRICULTURAL RESEARCH ENGINEER Work Phone: [facility] 08-28-2024 13:28-0500 Body temperature 98.49 [degF] Essie Aichholz AGRICULTURAL RESEARCH ENGINEER Work Phone: [facility] 08-28-2024 13:28-0500 Body weight 87 kg Essie Aichholz AGRICULTURAL RESEARCH ENGINEER Work Phone: [facility] 08-28-2024 13:28-0500 Diastolic blood pressure 86 mm[Hg] Essie Aichholz AGRICULTURAL RESEARCH ENGINEER Work Phone: [facility] 08-28-2024 13:28-0500 Heart rate 111 /min Essie Aichholz AGRICULTURAL RESEARCH ENGINEER Work Phone: [facility] 08-28-2024 13:28-0500 Respiratory rate 18 /min Essie Aichholz AGRICULTURAL RESEARCH ENGINEER Work Phone: [facility] 08-28-2024 13:28-0500 SaO2% (BldA) [Mass fraction] 98 % Essie Aichholz AGRICULTURAL RESEARCH ENGINEER Work Phone: [facility] 08-28-2024 13:28-0500 Systolic blood pressure 116 mm[Hg] Essie Aichholz AGRICULTURAL RESEARCH ENGINEER Work Phone: [facility] 07-23-2024 14:34-0500 Body height 152.4 cm [facility] 07-23-2024 14:34-0500 Body mass index (BMI) [Ratio] 38.06 kg/m2 [facility] 07-23-2024 14:34-0500 Body temperature 97.81 [degF] [facility] 07-23-2024 14:34-0500 Body weight 88.4 kg [facility] 07-23-2024 14:34-0500 Diastolic blood pressure 70 mm[Hg] [facility] 07-23-2024 14:34-0500 Heart rate 93 /min [facility] 07-23-2024 14:34-0500 Respiratory rate 16 /min [facility] 07-23-2024 14:34-0500 SaO2% (BldA) [Mass fraction] 99 % [facility] 07-23-2024 14:34-0500 Systolic blood pressure 118 mm[Hg] [facility] 06-05-2024 10:47-0500 Diastolic blood pressure 85 mm[Hg] Pacc 3 Work Phone: [facility] 06-05-2024 10:47-0500 Systolic blood pressure 135 mm[Hg] Pacc 3 Work Phone: [facility] 06-05-2024 10:24-0500 Body height 152.4 cm Pacc 3 Work Phone: [facility] 06-05-2024 10:24-0500 Body mass index (BMI) [Ratio] 37.72 kg/m2 Pacc 3 Work Phone: [facility] 06-05-2024 10:24-0500 Body temperature 97.81 [degF] Pacc 3 Work Phone: [facility] 06-05-2024 10:24-0500 Body weight 87.6 kg Pacc 3 Work Phone: [facility] 06-05-2024 10:24-0500 Heart rate 86 /min Pacc 3 Work Phone: [facility] 06-05-2024 10:24-0500 Respiratory rate 16 /min Pacc 3 Work Phone: [facility] 06-05-2024 10:24-0500 SaO2% (BldA) [Mass fraction] 96 % Pacc 3 Work Phone: [facility] 05-29-2024 14:40-0500 Body height 152.4 cm Essie Charliandersonz AGRICULTURAL RESEARCH ENGINEER Work Phone: [facility] 05-29-2024 14:40-0500 Body mass index (BMI) [Ratio] 38.04 kg/m2 Essie Charlihholz AGRICULTURAL RESEARCH ENGINEER Work Phone: [facility] 05-29-2024 14:40-0500 Body temperature 98.1 [degF] Essie Charlihholz AGRICULTURAL RESEARCH ENGINEER Work Phone: [facility] 05-29-2024 14:40-0500 Body weight 88.36 kg Essie Charlihholz AGRICULTURAL RESEARCH ENGINEER Work Phone: [facility] 05-29-2024 14:40-0500 Diastolic blood pressure 86 mm[Hg] Essie Charlihholz AGRICULTURAL RESEARCH ENGINEER Work Phone: [facility] 05-29-2024 14:40-0500 Heart rate 94 /min Essie Aichholz AGRICULTURAL RESEARCH ENGINEER Work Phone: [facility] 05-29-2024 14:40-0500 Respiratory rate 18 /min Essie Aichholz AGRICULTURAL RESEARCH ENGINEER Work Phone: [facility] 05-29-2024 14:40-0500 SaO2% (BldA) [Mass fraction] 98 % Essie Charlihholz AGRICULTURAL RESEARCH ENGINEER Work Phone: [facility] 05-29-2024 14:40-0500 Systolic blood pressure 110 mm[Hg] Essie Aichholz AGRICULTURAL RESEARCH ENGINEER Work Phone: [facility] 05-17-2024 08:00-0500 Body height 152.4 cm Jeff Rossi MD Work Phone: [facility] 05-17-2024 08:00-0500 Body mass index (BMI) [Ratio] 38.24 kg/m2 Jeff Rossi MD Work Phone: [facility] 05-17-2024 08:00-0500 Body temperature 97.9 [degF] Jeff Rossi MD Work Phone: [facility] 05-17-2024 08:00-0500 Body weight 88.81 kg Jeff Rossi MD Work Phone: [facility] 05-06-2024 14:08-0500 Body height 152.4 cm [facility] 05-06-2024 14:08-0500 Body mass index (BMI) [Ratio] 38.28 kg/m2 [facility] 2 [facility] 05-06-2024 14:08-0500 Body weight 88.91 kg [facility] [facility] 2 [facility] 04-19-2024 08:28-0400 Body height 152.4 cm Jeff Rossi MD Work Phone: [facility] 04-19-2024 08:28-0400 Body mass index (BMI) [Ratio] 38.24 kg/m2 Jeff Rossi MD Work Phone: [facility] 04-19-2024 08:28-0400 Body temperature 98.1 [degF] Jeff Rossi MD Work Phone: [facility] 04-19-2024 08:28-0400 Body weight 88.81 kg Jeff Rossi MD Work Phone: [facility] 04-10-2024 08:36-0400 Body height 152.4 cm Essie Ryan NP Work Phone: [facility] 04-10-2024 08:36-0400 Body mass index (BMI) [Ratio] 38.16 kg/m2 Essie Ryan NP Work Phone: [facility] 04-10-2024 08:36-0400 Body temperature 98.8 [degF] Essie Charlihholz AGRICULTURAL RESEARCH ENGINEER Work Phone: [facility] 04-10-2024 08:36-0400 Body weight 88.63 kg Essie Charlihholz AGRICULTURAL RESEARCH ENGINEER Work Phone: [facility] 04-10-2024 08:36-0400 Diastolic blood pressure 88 mm[Hg] Essie Aichholz AGRICULTURAL RESEARCH ENGINEER Work Phone: [facility] 04-10-2024 08:36-0400 Heart rate 96 /min Essie Aichholz AGRICULTURAL RESEARCH ENGINEER Work Phone: [facility] 04-10-2024 08:36-0400 Respiratory rate 18 /min Essie Charlihholz AGRICULTURAL RESEARCH ENGINEER Work Phone: [facility] 04-10-2024 08:36-0400 SaO2% (BldA) [Mass fraction] 98 % Essie Charlihholz AGRICULTURAL RESEARCH ENGINEER Work Phone: [facility] 04-10-2024 08:36-0400 Systolic blood pressure 120 mm[Hg] Essie Aichholz AGRICULTURAL RESEARCH ENGINEER Work Phone: [facility] 02-29-2024 08:38-0400 Body height 152.4 cm Essie Aichholz AGRICULTURAL RESEARCH ENGINEER Work Phone: [facility] 02-29-2024 08:38-0400 Body mass index (BMI) [Ratio] 38.28 kg/m2 Essie Charlihholz AGRICULTURAL RESEARCH ENGINEER Work Phone: [facility] 02-29-2024 08:38-0400 Body temperature 97.81 [degF] Essie Aichholz AGRICULTURAL RESEARCH ENGINEER Work Phone: [facility] 02-29-2024 08:38-0400 Body weight 88.91 kg Essie Aichholz AGRICULTURAL RESEARCH ENGINEER Work Phone: [facility] 02-29-2024 08:38-0400 Diastolic blood pressure 88 mm[Hg] Essie Aichholz AGRICULTURAL RESEARCH ENGINEER Work Phone: [facility] 02-29-2024 08:38-0400 Heart rate 97 /min Essie Shelby AGRICULTURAL RESEARCH ENGINEER Work Phone: [facility] 02-29-2024 08:38-0400 Respiratory rate 18 /min Essie Augustindilcia AGRICULTURAL RESEARCH ENGINEER Work Phone: [facility] 02-29-2024 08:38-0400 SaO2% (BldA) [Mass fraction] 98 % Essie Shelby AGRICULTURAL RESEARCH ENGINEER Work Phone: [facility] 02-29-2024 08:38-0400 Systolic blood pressure 122 mm[Hg] Essie Shelby AGRICULTURAL RESEARCH ENGINEER Work Phone: [facility] 11-28-2023 09:08-0400 Blood Pressure Location LESLIE ANGELICA [facility] 11-28-2023 09:08-0400 Diastolic blood pressure 84 mm[Hg] LESLIE ANGELICA [facility] 11-28-2023 09:08-0400 Heart rate 82 /min LESLIE ANGELICA [facility] 11-28-2023 09:08-0400 Respiratory rate 16 /min LESLIE ANGELICA [facility] 11-28-2023 09:08-0400 Systolic blood pressure 139 mm[Hg] LESLIE ANGELICA [facility] 09-12-2023 07:42-0400 Diastolic blood pressure 103 mm[Hg] Imani Krueger DIALYSIS RN-STRUCTURAL METAL WORKER Work Phone: [facility] 09-12-2023 07:42-0400 Heart rate 95 /min Imani Krueger DIALYSIS RN-STRUCTURAL METAL WORKER Work Phone: [facility] 09-12-2023 07:42-0400 Respiratory rate 18 /min Imani Krueger DIALYSIS RN-STRUCTURAL METAL WORKER Work Phone: [facility] 09-12-2023 07:42-0400 SaO2% (BldA) [Mass fraction] 99 % Imani Krueger DIALYSIS RN-STRUCTURAL METAL WORKER Work Phone: [facility] 09-12-2023 07:42-0400 Systolic blood pressure 136 mm[Hg] Imani Krueger DIALYSIS RN-STRUCTURAL METAL WORKER Work Phone: [facility] 08-21-2023 08:03-0500 Body height 149.9 cm Imani Krueger DIALYSIS RN-STRUCTURAL METAL WORKER Work Phone: [facility] 08-21-2023 08:03-0500 Body mass index (BMI) [Ratio] 38.78 kg/m2 Imani Krueger DIALYSIS RN-STRUCTURAL METAL WORKER Work Phone: [facility] 08-21-2023 08:03-0500 Body weight 87.09 kg Imani Krueger DIALYSIS RN-STRUCTURAL METAL WORKER Work Phone: [facility] 08-21-2023 08:03-0500 Diastolic blood pressure 106 mm[Hg] Imani Krueger DIALYSIS RN-STRUCTURAL METAL WORKER Work Phone: [facility] 08-21-2023 08:03-0500 Heart rate 94 /min Imani Krueger DIALYSIS RN-STRUCTURAL METAL WORKER Work Phone: [facility] 08-21-2023 08:03-0500 SaO2% (BldA) [Mass fraction] 100 % Imani Krueger DIALYSIS RN-STRUCTURAL METAL WORKER Work Phone: [facility] 08-21-2023 08:03-0500 Systolic blood pressure 151 mm[Hg] Imani Krueger DIALYSIS RN-STRUCTURAL METAL WORKER Work Phone: [facility] 06-28-2023 10:34-0500 Body height 149.9 cm Evans ONEILL-C Work Phone: [facility] 06-28-2023 10:34-0500 Body mass index (BMI) [Ratio] 38.78 kg/m2 Evans Verhoff PA-C Work Phone: [facility] 06-28-2023 10:34-0500 Body weight 87.09 kg Evans Verhoff PA-C Work Phone: [facility] 06-28-2023 10:34-0500 Diastolic blood pressure 107 mm[Hg] Evans Verhoff PA-C Work Phone: [facility] 06-28-2023 10:34-0500 Heart rate 93 /min Evans Verhoff PA-C Work Phone: [facility] 06-28-2023 10:34-0500 SaO2% (BldA) [Mass fraction] 97 % Evans Verhoff PA-C Work Phone: [facility] 06-28-2023 10:34-0500 Systolic blood pressure 139 mm[Hg] Evans Verhoff PA-C Work Phone: [facility] 05-29-2023 14:39-0500 Blood Pressure Location Lynn GARCIA [facility] 05-29-2023 14:39-0500 Diastolic blood pressure 83 mm[Hg] Lynn GARCIA [facility] 05-29-2023 14:39-0500 Heart rate 88 /min Lynn GARCIA [facility] 05-29-2023 14:39-0500 Respiratory rate 16 /min Lynn GARCIA [facility] 05-29-2023 14:39-0500 Systolic blood pressure 131 mm[Hg] Lynn GARCIA [facility] 11-24-2022 13:48-0400 Diastolic blood pressure 106 mm[Hg] Beth SALAM [facility] 11-24-2022 13:48-0400 Mean blood pressure 121 mm[Hg] Beth SALAM [facility] 11-24-2022 13:48-0400 Systolic blood pressure 152 mm[Hg] Beth SALAM [facility] 11-24-2022 13:46-0400 Blood Pressure Location Beth SALAM [facility] 11-24-2022 13:46-0400 Diastolic blood pressure 118 mm[Hg] Beth SALAM [facility] 11-24-2022 13:46-0400 Heart rate 80 /min Beth SALAM [facility] 11-24-2022 13:46-0400 Respiratory rate 16 /min Beth SALAM [facility] 11-24-2022 13:46-0400 Systolic blood pressure 161 mm[Hg] Beth SALAM [facility] 04-26-2022 12:03-0400 Blood Pressure Location Lynn GARCIA [facility] 04-26-2022 12:03-0400 Diastolic blood pressure 95 mm[Hg] Lynn GARCIA [facility] 04-26-2022 12:03-0400 Heart rate 102 /min Lynn GARCIA [facility] 04-26-2022 12:03-0400 Systolic blood pressure 141 mm[Hg] Lynn GARCIA [facility] 02-21-2022 12:39-0400 Body weight 88.81 kg Shiraz Roy DO Work Phone: [facility] 02-21-2022 12:39-0400 Diastolic blood pressure 85 mm[Hg] Shiraz Roy DO Work Phone: [facility] 02-21-2022 12:39-0400 Heart rate 76 /min Shiraz Roy DO Work Phone: [facility] 02-21-2022 12:39-0400 Systolic blood pressure 138 mm[Hg] Shiraz Roy DO Work Phone: [facility] 12-09-2021 09:00-0400 Body height 160.02 cm Alexis Dany II Other [employer] Other 12-09-2021 09:00-0400 Body mass index (BMI) [Ratio] 34.47 kg/m2 Alexis [place] II Other [employer] Other 12-09-2021 09:00-0400 Body weight 88.27 kg Alexis [place] II Other [employer] Other 11-17-2021 15:30-0400 Body height 160.02 cm Alexis Dany II Other [employer] Other 11-17-2021 15:30-0400 Body mass index (BMI) [Ratio] 32.41 kg/m2 Alexis [place] II Other [employer] Other 11-17-2021 15:30-0400 Body weight 83.01 kg Alexis [place] II Other [employer] Other Encounters Encounter Date Encounter Type Care Provider Facility Start: 02-11-2025 End: 02-11-2025 Clinisync Result Encounter Generic External Data Provider [facility] External [facility] Unsolicited Start: 02-11-2025 End: 02-11-2025 Clinisync Result Encounter Generic External Data Provider [facility] External Department Unsolicited Start: 01-15-2025 End: 01-15-2025 ambulatory Essie Ryan Work Phone: [facility] Work Phone: Comment on above: S/P total right hip arthroplasty (Primary Dx); Chronic right hip pain Start: 01-15-2025 End: 01-15-2025 Patient encounter procedure Paulette Warren MD -[facility] Work Phone: Start: 01-09-2025 End: 01-09-2025 Orders Only Essie Ryan AGRICULTURAL RESEARCH ENGINEER Work Phone: [facility] Comment on above: Chronic right hip pa in (Primary Dx) Start: 01-01-2025 End: 01-01-2025 Bamboo flowsheet Essie Ryan AGRICULTURAL RESEARCH ENGINEER Work Phone: [facility] Start: 01-01-2025 End: 01-01-2025 Bamboo flowsheet Essie Ryan AGRICULTURAL RESEARCH ENGINEER Work Phone: [facility] Start: 01-01-2025 End: 01-01-2025 Office outpatient visit 25 minutes Essie Ryan AGRICULTURAL RESEARCH ENGINEER Work Phone: [facility] Comment on above: Chronic right hip pa in (Primary Dx); NIRMALA (obstructive sleep apnea); Dizziness and giddiness; Primary hypertension ; Morbid (severe) obesity due to excess calories ([facility]); Bipolar 1 disorder ([facility]); Anxiety; Elevated glucose level; PAH (pulmonary artery hypertension) ([facility]); Bipolar disorder, unspecified ([facility]); Mixed hyperlipidemia ; Gastroesophageal reflux disease, unspecified whether esophagitis present Start: 01-01-2025 End: 01-01-2025 ambulatory ESSIE RYAN Not Available Start: 12-10-2024 ambulatory LESLIE Singleton ty:[facility] [place] Start: 11-28-2024 End: 11-28-2024 Clinisync Result Encounter Generic External Data Provider [facility] External Department Unsolicited Start: 11-28-2024 End: 11-28-2024 Clinisync Result Encounter Generic External Data Provider [facility] External Department Unsolicited Start: 11-28-2024 End: 11-28-2024 ambulatory Lynn Javy JOSE Facility:[id number] Start: 11-25-2024 End: 11-25-2024 Clinisync Result Encounter Generic External Data Provider [facility] External Department Unsolicited Start: 11-25-2024 End: 11-25-2024 Clinisync Result Encounter Generic External Data Provider [facility] External Department Unsolicited Start: 11-11-2024 End: 11-11-2024 ambulatory [facility] Start: 11-11-2024 End: 11-11-2024 Encounter for preprocedural cardiovascular examination [facility] Start: 11-01-2024 End: 11-01-2024 Clinisync Result Encounter Generic External Data Provider [facility] External Department Unsolicited Start: 11-01-2024 End: 11-01-2024 Clinisync Result Encounter Generic External Data Provider [facility] External Department Unsolicited Start: 10-31-2024 End: 10-31-2024 Telephone encounter Trinh Eduardo MD Work Phone: [facility] Comment on above: Sleep Lab (PAP) Start: 10-30-2024 End: 10-30-2024 ambulatory [facility] Start: 10-30-2024 End: 10-30-2024 ambulatory [facility] Start: 10-17-2024 ambulatory Lynn Javy JOSE Facili ty:[id number] Start: 10-09-2024 End: 10-09-2024 Clinisync Result Encounter Generic External Data Provider [facility] External Department Unsolicited Start: 10-09-2024 End: 10-09-2024 Clinisync Result Encounter Generic External Data Provider [facility] External Department Unsolicited Start: 10-07-2024 End: 10-07-2024 ambulatory Lynn GARCIA Facility:[facility] Start: 10-04-2024 End: 10-04-2024 Clinisync Result Encounter Essie Ryan AGRICULTURAL RESEARCH ENGINEER Work Phone: [facility] Unsolicited Start: 10-04-2024 End: 10-04-2024 Clinisync Result Encounter Essie Ryan AGRICULTURAL RESEARCH ENGINEER Work Phone: [facility] External [facility] Unsolicited Start: 10-03-2024 End: 10-03-2024 ambulatory [facility] Start: 09-30-2024 End: 09-30-2024 Bamboo flowsheet Essie Ryan AGRICULTURAL RESEARCH ENGINEER Work Phone: [facility] Start: 09-30-2024 End: 09-30-2024 Bamboo flowsheet Essie Ryan AGRICULTURAL RESEARCH ENGINEER Work Phone: [facility] Start: 09-30-2024 End: 09-30-2024 Office outpatient visit 25 minutes Essie Ryan AGRICULTURAL RESEARCH ENGINEER Work Phone: [facility] Comment on above: Dizziness and giddin ess (Primary Dx); NIRMALA (obstructive sleep apnea); Morbid (severe) obesity due to excess calories (CMS/HCC); Bipolar disorder, unspecified (CMS/HCC); Mixed hyperlipidemia (CMS/HCC); Anxiety; Chronic right hip pain; Gastroesophageal reflux disease, unspecified whether esophagitis present; Left hip pain Start: 09-30-2024 End: 09-30-2024 ambulatory ESSIE RYAN Not Available Start: 09-27-2024 End: 09-27-2024 ambulatory [facility] Start: 09-09-2024 End: 09-09-2024 Clinisync Result Encounter Generic External Data Provider [facility] External Department Unsolicited Start: 09-09-2024 End: 09-09-2024 Clinisync Result Encounter Generic External Data Provider [facility] External Department Unsolicited Start: 09-06-2024 End: 09-06-2024 Postop follow up visit related to original px Jeff Rossi MD Work [facility] Comment on above: Obstructive sleep ap shanice (Primary Dx) Start: 09-06-2024 End: 09-06-2024 ambulatory [facility] Start: 08-29-2024 End: 08-29-2024 Clinisync Result Encounter Essie Shelby AGRICULTURAL RESEARCH ENGINEER Work Phone: [facility] Unsolicited Start: 08-29-2024 End: 08-29-2024 Clinisync Result Encounter Essie Shelby AGRICULTURAL RESEARCH ENGINEER Work Phone: [facility] External [facility] Unsolicited Start: 08-28-2024 End: 08-28-2024 Bamboo flowsheet Essie Shelby AGRICULTURAL RESEARCH ENGINEER Work Phone: [facility] Start: 08-28-2024 End: 08-28-2024 Bamboo flowsheet Essie Shelby AGRICULTURAL RESEARCH ENGINEER Work Phone: [facility] Start: 08-28-2024 End: 08-28-2024 Office outpatient visit 25 minutes Essie Ryan AGRICULTURAL RESEARCH ENGINEER Work Phone: [facility] Comment on [...] giddiness Start: 08-28-2024 End: 08-28-2024 ambulatory ESSIE SHELBY Not Available Start: 08-22-2024 End: 08-22-2024 Evaluation and management of inpatient [facility] Start: 07-30-2024 End: 07-30-2024 Patient encounter procedure Lois Mckeon MD Work Phone: Orthopaedics Comment on above: Pain of right hip (P rimary Dx) Start: 07-30-2024 End: 07-30-2024 Clinisync Result Encounter Generic External Data Provider [facility] External Department Unsolicited Start: 07-30-2024 End: 07-30-2024 Clinisync Result Encounter Generic External Data Provider [facility] External Department Unsolicited Start: 07-30-2024 End: 07-30-2024 ambulatory LOIS MCKEON Facility:[facility] Start: 07-30-2024 End: 07-30-2024 Subsequent hospital visit by physician Xr [facility] Work Phone: Radiology Comment on above: oa Start: 07-29-2024 End: 07-29-2024 Telephone encounter Jeff Rossi MD Work Phone: [facility] Start: 07-26-2024 End: 07-26-2024 Telephone encounter Jeff Rossi MD Work Phone: [facility] Start: 07-23-2024 End: 07-23-2024 ambulatory JEFF ROSSI [facility] Start: 07-23-2024 End: 07-23-[address] [facility] Provider 4 [facility] Start: 07-01-2024 End: 07-01-2024 ambulatory LOIS MCKEON Facility:[facility] Start: 06-08-2024 End: 06-11-2024 Clinisync Result Encounter [...] Unsolicited Start: 06-05-2024 End: 06-05-2024 Admission to [facility] Work Phone: Pre Anesthesia Start: 06-05-2024 End: 06-05-2024 ambulatory [facility] Facility:[facility] Start: 06-05-2024 End: 06-05-2024 Anesthesia consultation Pac 3 Work Phone: Pre Anesthesia Comment on above: Pre-op evaluation (P rimary Dx); NIRMALA (obstructive sleep apnea); Gastroesophageal reflux disease, unspecified whether esophagitis present; Pulmonary HTN (HCC); Other hyperlipidemia; BMI 37.0-37.9, adult Start: 06-05-2024 Encounter for other preprocedural examination LOIS MCKEON [facility] Start: 06-05-2024 End: 06-05-2024 Preprocedural examination done Pac 3 Work Phone: [facility] Work Phone: Start: 05-29-2024 End: 05-29-2024 Office outpatient visit 25 minutes Essie Ryan NP Work Phone: [facility] Comment on above: Bipolar 1 disorder ( CMS/HCC) (Primary Dx); NIRMALA (obstructive sleep apnea); PAH (pulmonary artery hypertension) (CMS/HCC); Chronic right hip pain; Morbid (severe) obesity due to excess calories (CMS/HCC); Anxiety; Chronic rhinitis; Body mass index (BMI) 38.0-38.9, adult Start: 05-29-2024 End: 05-29-2024 ambulatory ESSIE RYAN Not Available Start: 05-29-2024 End: 05-29-2024 Bamboo flowsheet Essie Ryan AGRICULTURAL RESEARCH ENGINEER Work Phone: [facility] Start: 05-29-2024 End: 05-29-2024 Bamboo flowsheet Essie Ryan AGRICULTURAL RESEARCH ENGINEER Work Phone: [facility] Start: 05-24-2024 End: 05-24-2024 Admission to same day surgery center Lois Mckeon MD Work Phone: Orthopaedics Comment on above: Schedule Surgery Start: 05-24-2024 End: 05-24-2024 ambulatory Lois Mckeon MD Work Phone: Orthopaedics Start: 05-17-2024 End: 05-17-2024 Office outpatient visit 15 minutes Jeff Rossi MD Work [facility]: [facility] Comment on above: Obstructive sleep ap shanice (Primary Dx) Start: 05-17-2024 End: 05-17-2024 ambulatory [facility] Start: 05-09-2024 End: 06-01-2024 Telephone encounter Lois Mckeon MD Work Phone: Orthopaedics Comment on above: Question (See note) Start: 05-09-2024 End: 05-09-2024 Evaluation and management of inpatient [facility] Start: 05-09-2024 End: 05-09-2024 Evaluation and management of inpatient [facility] Start: 05-06-2024 End: 05-06-2024 Evaluation and management of inpatient ESSIE Dolan [facility] Start: 05-02-2024 End: 05-06-2024 Admission to [facility] Phone Call Provider 2 [facility] Start: 04-19-2024 End: 04-19-2024 Telephone encounter Jeff Rossi MD Work Phone: [facility] Start: 04-19-2024 End: 04-19-2024 Office outpatient new 30 minutes Jeff Rossi MD Work Phone: [facility] Comment on above: NIRMALA (obstructive sle ep apnea) (Primary Dx) Start: 04-19-2024 End: 04-19-2024 ambulatory [facility] Start: 04-16-2024 End: 04-16-2024 ambulatory LOIS MCKEON Facility:[facility] Start: 04-16-2024 End: 04-16-2024 Patient encounter procedure Lois Mckeon MD Work Phone: Orthopaedics Comment on above: Primary osteoarthrit is of right hip (Primary Dx); Status post right hip replacement Start: 04-10-2024 End: 04-10-2024 Bamboo flowsheet Essie Rolonjacob AGRICULTURAL RESEARCH ENGINEER Work Phone: [facility] Start: 04-10-2024 End: 04-10-2024 Bamboo flowsheet Essie Ryan AGRICULTURAL RESEARCH ENGINEER Work Phone: [facility] Start: 04-10-2024 End: 04-10-2024 Office outpatient visit 25 minutes Essie Rolonjacob AGRICULTURAL RESEARCH ENGINEER Work Phone: [facility] Comment on [...] procedure Lois Mckeon MD Work Phone: Orthopaedic [facility] Comment on above: Pain of right hip (P rimary Dx); Primary osteoarthritis of right hip Start: 03-19-2024 End: 03-19-2024 ambulatory LOIS MCKEON Facility:[facility] Start: 03-19-2024 End: 03-19-2024 Subsequent hospital visit by physician [facility] Comment on above: Pain in right hip [M 25.551] Start: 03-18-2024 End: 03-22-2024 Telephone encounter Lois Mckeon MD Work Phone: Orthopaedic [facility] Start: 03-06-2024 End: 03-06-2024 Clinisync Result Encounter Generic External Data Provider [facility] External Department Unsolicited Start: 03-06-2024 End: 03-06-2024 Clinisync Result Encounter Generic External Data Provider [facility] External Department Unsolicited Start: 03-06-2024 End: 03-06-2024 ambulatory [facility] Start: 03-06-2024 End: 03-06-2024 ambulatory [facility] Start: 02-29-2024 End: 02-29-2024 Bamboo flowsheet Essie Ryan AGRICULTURAL RESEARCH ENGINEER Work Phone: [facility] Start: 02-29-2024 End: 02-29-2024 Bamboo flowsheet Essie Shelby AGRICULTURAL RESEARCH ENGINEER Work Phone: [facility] Start: 02-29-2024 End: 02-29-2024 Office outpatient visit 25 minutes Essie Ryan AGRICULTURAL RESEARCH ENGINEER Work Phone: [facility] Comment on above: Bipolar disorder, cu rrent episode mixed, moderate (CMS/HCC) (Primary Dx); Chronic rhinitis; Gastroesophageal reflux disease, unspecified whether esophagitis present; BMI 38.0-38.9,adult; Neuritis of left median nerve; Neuritis of right median nerve; Bipolar disorder, unspecified (CMS/HCC) Start: 02-29-2024 End: 02-29-2024 ambulatory ESSIE AICHHOLZ Not Available Start: 01-30-2024 End: 01-30-2024 ambulatory ESSIE AICHHOLZ Not Available Start: 11-28-2023 End: 11-28-2023 Patient encounter procedure LESLIE JUNG [facility] Start: 11-12-2023 End: 11-13-2023 Refill Imani Krueger DIALYSIS RN-STRUCTURAL METAL WORKER Work Phone: [facility] Comment on above: Chronic right hip pa in Start: 09-20-2023 Telephone encounter Nora FROST [facility] Start: 09-12-2023 End: 09-12-2023 Office outpatient visit 15 minutes Imani Krueger DIALYSIS RN-STRUCTURAL METAL WORKER Work Phone: [facility] Comment on above: Chronic right hip pa in (Primary Dx) Start: 08-21-2023 End: 08-21-2023 Office outpatient visit 25 minutes Evans N Verhoff PA-C Work Phone: [facility] Comment on above: Chronic right hip pa in (Primary Dx); Lumbar neuritis Start: 07-11-2023 End: 07-11-2023 ambulatory Juliana Block Other [employer] Other Start: 07-11-2023 Office outpatient vi sit 25 minutes Juliana Block [facility] Start: 06-28-2023 End: 06-28-2023 Office outpatient visit 15 minutes Evans Segun Verhoff PA-C Work Phone: [facility] Comment on above: Lumbar radiculopathy (Primary Dx) Start: 05-29-2023 End: 05-29-2023 Patient encounter procedure Lynn GARCIA [facility] [place] Start: 02-02-2023 End: 02-02-2023 Lab Drop off Ignacia KHAN [facility] Start: 02-01-2023 End: 02-01-2023 Patient encounter procedure Beth SALAM [facility] Start: 12-06-2022 End: 12-06-2022 Patient encounter procedure Beth SALAM [facility] Start: 11-24-2022 End: 11-24-2022 Patient encounter procedure Beth SALAM [facility] Start: 11-22-2022 End: 11-23-2022 ambulatory CAN MONROE Facility:[facility] Start: 11-08-2022 ambulatory BYRON GARCIA . Facility:[facility] Start: 10-26-2022 End: 10-27-2022 ambulatory STRUCTURAL METAL WORKER ESSIE RYAN Facility:H1 Start: 10-18-2022 End: 10-18-[address] NEDA CACERES Facility:[facility]1 Start: 10-04-2022 End: 10-05-[address] NEDA CACERES Facility:[facility]1 Start: 09-21-2022 End: 09-22-2022 ambulatory EDNA MCRAE . Facility:[facility]1 Start: 09-06-2022 End: 09-07-[address] NEDA CACERES Facility:[facility]1 Start: 08-18-2022 End: 08-19-2022 ambulatory ADRIANNA Bazzi APLFELIPE Facility:H1 Start: 08-04-2022 End: 08-05-2022 [...] Start: 04-26-2022 End: 04-26-2022 Patient encounter procedure Lynn GARCIA [facility] Start: 04-22-2022 End: 04-23-2022 ambulatory NIURKA RYAN Facility:[facility]1 Start: 03-29-2022 End: 03-30-[address] MARKO MORALES . Facility:[facility]1 Start: 03-22-2022 End: 03-23-2022 ambulatory NIURKA RYAN Facility:[facility]1 Start: 03-22-2022 End: 03-23-[address] MARKO MORALES . Facility:[facility]1 Start: 03-08-2022 End: 03-09-[address] NEDA CACERES Facility:[facility]1 Start: 03-08-2022 End: 03-08-2022 Patient encounter procedure Lynn Javy GARCIA [facility] Start: 03-07-2022 End: 03-08-2022 ambulatory NIURKA RYAN [...] End: 01-05-2022 ambulatory Alexis Saenz II Other [employer] Other Start: 01-05-2022 Telephone encounter [facility] Start: 12-31-2021 End: 12-31-2021 Patient encounter procedure Jorge Luis Page DO Work Phone: Orthopaedics Comment on above: Trochanteric bursiti s of right hip (Primary Dx) Start: 12-09-2021 End: 12-09-2021 ambulatory Alexis Saenz II Other [employer] Other Start: 12-09-2021 Office outpatient vi sit 25 minutes Alexis Dany II [facility] Start: 11-17-2021 End: 11-17-2021 ambulatory Alexis Saenz II Other [place] [employer] Other Start: 11-17-2021 Office outpatient ne w 45 minutes Alexis Saenz II [facility] Start: 06-02-2017 End: 06-03-2017 Ambulatory DEFAULT PHYSICIAN Facility:[facility] Start: 05-15-2017 End: 05-16-2017 Ambulatory DEFAULT PHYSICIAN Facility:[facility] Start: 05-01-2017 End: 05-02-2017 Ambulatory DEFAULT PHYSICIAN Facility:[facility] Procedures Date Procedure Procedure Detail Performing Clinician Start: 02-11-2025 XR ABDOMEN 1V Generic E xternal Data Provider Start: 01-01-2025 Hemoglobin glycosylated a1c Essie Ryan AGRICULTURAL RESEARCH ENGINEER Work Phone: Start: 11-28-2024 XR ABDOMEN 1V Generic E xternal Data Provider Start: 11-25-2024 ALL CBC WITH AUTO DIFF Generic External Data Provider Start: 11-01-2024 CA ECHO DOPPLER COMPLETE Generic External Data Provider Start: 10-09-2024 XR HIP LT MIN 2V Essie christiansen AGRICULTURAL RESEARCH ENGINEER Work Phone: Start: 10-09-2024 ALL CBC WITH AUTO DIFF Generic External Data Provider Start: 10-04-2024 MM TOMOSYNTHESIS SCR EENING BI Essie Ryan AGRICULTURAL RESEARCH ENGINEER Work Phone: Start: 10-04-2024 Mammography Essie cristina AGRICULTURAL RESEARCH ENGINEER Work Phone: Start: 09-09-2024 XR ABDOMEN 1V Generic E xternal Data Provider Start: 09-09-2024 US RENAL BI Generic Ex ternal Data Provider Start: 08-29-2024 ALL CBC WITH AUTO DIFF Essie Ryan AGRICULTURAL RESEARCH ENGINEER Work Phone: Start: 07-30-2024 Radex hip unilateral [...] ast 12 lds i&r only Negrita Tejeda DIALYSIS RN.STRUCTURAL METAL WORKER Work Phone: Start: 03-19-2024 Radex hip unilateral with pelvis 2-3 views Mayito Gifford PA-C Work Phone: Start: 03-06-2024 ALL LIPID PROFILE (FASTING) Generic External Data Provider Start: 03-06-2024 [facility] LIVER PANEL Generi c External Data Provider Start: 08-17-2023 Mammography Essie Nawaf cristina AGRICULTURAL RESEARCH ENGINEER Work Phone: Start: 12-24-2022 Lobectomy of thyroid gland Lynn GARCIA Start: 02-14-2022 Adult depression scr eening assessment Shirazgriffin Roy DO Work Phone: Start: 12-31-2021 Arthrocentesis aspir &/inj major jt/bursa w/o us Jorge Luis Page DO Work Phone: Start: 12-15-2020 Colonoscopy Jorge Luis sotelo DO Work Phone: Hysterectomy Lynn GARCIA Laparoscopy Lynn GARCIA Other bilateral liga tion and division of fallopian tubes Lynn GARCIA partial colectomy Lynn LANGLEY Tonsillectomy Lynn GARCIA Plan of Treatment Date Care Activity Detail Author Start: 2036 HEPATITIS B (1 of 3 - Risk 3-dose series) HEPATITIS B (1 of 3 - Risk 3-dose series) [facility] Start: 06-05-2027 Diabetes Screening Diabetes Screening [facility] Start: 10-04-2025 Screening for malignant neoplasm of breast Mammogram [facility] Start: 09-06-2025 Adult BMI Screening Adult BMI Screening [facility] Start: 08-22-2025 Tobacco Screening Tobacco Screening [facility] Start: 07-23-2025 Adult BMI Screening Adult BMI Screening [facility] Start: 07-23-2025 Tobacco Screening Tobacco Screening [facility] Start: 05-17-2025 Adult BMI Screening Adult BMI Screening [facility] Start: 05-17-2025 Tobacco Screening Tobacco Screening [facility] Start: 05-09-2025 Adult BMI Screening Adult BMI Screening [facility] Start: 05-09-2025 Tobacco Screening Tobacco Screening [facility] Start: 04-19-2025 Adult BMI Screening Adult BMI Screening [facility] Start: 04-19-2025 Tobacco Screening Tobacco Screening [facility] Start: 04-03-2025 End: 04-03-2025 Patient encounter procedure 04/03/2025 1:20 PM EDT [facility] [address] [place] [address] Essie Ryan, NETO [address] [place] [address] [facility] Start: 03-12-2025 ambulatory Ambulatory Facility:[facility] Start: 02-24-2025 Influenza vaccination Influenza Vaccine [facility] Start: 01-29-2025 End: 01-29-2025 Clinical Support 01/29/2025 8:00 PM EDT Clinical Support [facility] [address] [place] [phone] Trinh Eduardo MD [address] [place] [address] [address] [place] [address] [facility] Start: 01-01-2025 End: 01-01-2025 Patient encounter procedure [facility] Comment on above: NIRMALA (obstructive sleep apnea) (Primary D x); Dizziness and giddiness; Primary hypertension ; Morbid (severe) obesity due to excess calories (CMS-HCC); Bipolar 1 disorder (HCC); Anxiety; Elevated glucose level; PAH (pulmonary artery hypertension) (HCC) Start: 10-01-2024 End: 10-01-2024 Patient encounter procedure 10/01/2024 1:20 PM EDT Office Visit Orthopaedics [address] [place] [address] Lois Mckeon MD [address] [place] [id number] 2mo follow up - DOS 07/01/24 Orthopaedics Comment on above: 2mo follow up - DOS 07/01/24 Start: 09-30-2024 End: 09-30-2025 XR Hip - left 3 Views XR hip left 2 or 3 views Imaging Routine Left hip pain Expected: 09/30/2024, Expires: 09/30/2025 [facility] Work Phone: Comment on above: Expected: 09/30/2024, Expires: Start: 09-30-2024 End: 09-30-2024 Patient encounter procedure [facility] Comment on above: Dizziness and giddiness (Primary Dx); NIRMALA (obstructive sleep apnea); Morbid (severe) obesity due to excess calories (CMS/HCC) Start: 09-11-2024 Tobacco Screening Tobacco Screening [facility] Start: 08-28-2024 End: 08-28-2025 CBC W Auto Differential panel - Blood CBC and differential Lab Routine Dizziness and giddiness Expected: 08/28/2024 (Approximate), Expires: 08/28/2025 [facility] Comment on above: Expected: 08/28/2024 (Approximate), Expi res: 08/28/2025 Start: 08-28-2024 End: 08-28-2025 Comprehensive metabolic 2000 panel - Serum or Plasma Comprehensive metabolic panel Lab Routine Dizziness and giddiness Expected: 08/28/2024 (Approximate), Expires: 08/28/2025 [facility] Comment on above: Expected: 08/28/2024 (Approximate), Expi res: 08/28/2025 Start: 08-28-2024 End: 08-28-2025 Ferritin [Mass/volume] in Serum or Plasma Ferritin Lab Routine Dizziness and giddiness Expected: 08/28/2024 (Approximate), Expires: 08/28/2025 [facility] Comment on above: Expected: 08/28/2024 (Approximate), Expi res: 08/28/2025 Start: 08-28-2024 End: 08-28-2025 Iron + transferrin + TIBC Iron + transferrin + TIBC Lab Routine Dizziness and giddiness Expected: 08/28/2024 (Approximate), Expires: 08/28/2025 [facility] Comment on above: Expected: 08/28/2024 (Approximate), Expi res: 08/28/2025 Start: 08-28-2024 End: 08-28-2025 Lipid 1996 panel - Serum or Plasma Lipid panel Lab Routine Mixed hyperlipidemia (CMS/HCC) Expected: 08/28/2024 (Approximate), Expires: 08/28/2025 [facility] Comment on above: Expected: 08/28/2024 (Approximate), Expi res: 08/28/2025 Start: 08-28-2024 End: 10-28-2025 MG Breast - bilateral Screening Bilateral screening mammogram Imaging Routine Encounter for screening mammogram for malignant neoplasm of breast Expected: 08/28/2024 (Approximate), Expires: 10/28/2025 [facility] Work Phone: Comment on above: Expected: 08/28/2024 (Approximate), Expi res: 10/28/2025 Start: 08-28-2024 End: 08-28-2024 Patient encounter procedure [facility] Comment on above: NIRMALA (obstructive sleep apnea) [...] Adult BMI Screening Adult BMI Screening [facility] Start: 08-17-2024 Screening for malignant neoplasm of breast Mammogram [facility] Start: 08-07-2024 End: 08-07-2024 Patient encounter procedure 08/07/2024 8:15 AM EST Office Visit [facility] [address] [place] [address], [address] [place] [address] Jeff Rossi MD [address] [place] [address] [address] [place] [address] [facility] Start: 08-01-2024 End: 08-01-2024 Admission to same day surgery center 08/01/2024 11:30 AM EST - 08/01/2024 3:30 PM EST Surgery [facility] [address] [place] [address] Jeff Rossi MD [address] [place] [address] [address] [place] [address] INSERTION STIMULATOR NERVE HYPOGLOSSAL - Inspire [12098 (CPT )] [facility] Comment on above: INSERTION STIMULATOR NERVE HYPOGLOSSAL - Inspire [35482 (CPT )] Start: 08-01-2024 End: 08-01-2024 INSERTION STIMULATOR NERVE HYPOGLOSSAL INSERTION STIMULATOR NERVE HYPOGLOSSAL Obstructive sleep apnea NIRMALA (obstructive sleep apnea) 08/01/2024 11:30 AM EST [facility] Start: 08-01-2024 Subsequent hospital visit by physician 08/01/2024 11:30 AM EST Hospital Encounter [facility] Surgery [address] [place] [address] Jeff Rossi MD [address] [place] [address] [address] [place] [address] [facility] Start: 08-01-2024 End: 08-01-2024 Admission to same day surgery center 08/01/2024 7:30 AM EST - 08/01/2024 11:30 AM EST Surgery [facility] [address] [place] [address] Jeff Rossi MD [address] [place] [address] [address] [place] [address] INSERTION STIMULATOR NERVE HYPOGLOSSAL - Inspire [51621 (CPT )] [facility] Comment on above: INSERTION STIMULATOR NERVE HYPOGLOSSAL - Inspire [64850 (CPT )] Start: 08-01-2024 End: 08-01-2024 INSERTION STIMULATOR NERVE HYPOGLOSSAL INSERTION STIMULATOR NERVE HYPOGLOSSAL Obstructive sleep apnea NIRMALA (obstructive sleep apnea) 08/01/2024 7:30 AM EST [facility] Start: 08-01-2024 Subsequent hospital visit by physician 08/01/2024 7:30 AM EST Hospital Encounter [place] [address] [place] [address] Jeff Rossi MD [address] [place] [address] [address] [place] [address] [facility] Start: 07-30-2024 End: 07-30-2024 Patient encounter procedure Radiology Comment on above: post op xray right hip Surgical post op Start: 07-23-2024 End: 07-23-2024 Patient encounter procedure 07/23/2024 2:15 PM EST Procedure visit [facility] On [address] [address] [facility] Start: 07-01-2024 End: 07-01-2024 Admission to same day surgery center 07/01/2024 4:32 PM EST - 07/01/2024 6:47 PM EST Surgery [facility] Operating Room [address] [address] Lois Mckeon MD [address] [place] [address] ARTHROPLASTY REPLACE JOINT TOTAL HIP [facility] Operating Room Comment on above: ARTHROPLASTY REPLACE JOINT TOTAL HIP Start: 07-01-2024 End: 07-01-2024 Arthrp acetblr/prox fem prostc agrft/algrft ARTHROPLASTY REPLACE JOINT TOTAL HIP Primary osteoarthritis of right hip 07/01/2024 4:32 PM EST [facility] Start: 07-01-2024 Subsequent hospital visit by physician 07/01/2024 4:32 PM EST Hospital Encounter [facility] Operating Room [address] [address] Lois Mckeon MD [address] [place], [place] [id number] Primary osteoarthritis of right hip [M16.11] [facility] Operating Room Comment on above: Primary osteoarthritis of right hip [M16 .11] Start: 06-28-2024 Adult BMI Screening Adult BMI Screening [facility] Start: 06-28-2024 Tobacco Screening Tobacco Screening [facility] Start: 06-05-2024 End: 09-04-2024 Basic metabolic 2000 panel - Serum or Plasma [facility] Comment on above: Expected: 06/05/2024, Expires: Start: 06-05-2024 End: 09-04-2024 CBC W Auto Differential panel - Blood [facility] Work Phone: Comment on above: Expected: 06/05/2024, Expires: 5 Start: 06-05-2024 End: 09-04-2024 Ferritin [Mass/volume] in Serum or Plasma [facility] Comment on above: Expected: 06/05/2024, Expires: Start: 06-05-2024 End: 09-04-2024 Iron and Iron binding capacity panel - Serum or Plasma [facility] Comment on above: Expected: 06/05/2024, Expires: Start: 06-05-2024 End: 06-05-2024 Anesthesia consultation 06/05/2024 10:30 AM EST PAT Pre Anesthesia [address] [place] [address] ARTHROPLASTY REPLACE JOINT TOTAL HIP [3131] - Hip - Right Pre Anesthesia Comment on above: ARTHROPLASTY REPLACE JOINT TOTAL HIP [31 31] - Hip - Right Start: 05-29-2024 End: 05-29-2024 Patient encounter procedure 05/29/2024 2:20 PM EST Office Visit [facility] [address] [place] [address] Essie Ryan, AGRICULTURAL RESEARCH ENGINEER [address] [place] [phone] NIRMALA (obstructive sleep apnea) (Primary Dx); PAH (pulmonary artery hypertension) (CMS/HCC); Chronic right hip pain; Morbid (severe) obesity due to excess calories (CMS/HCC); Bipolar 1 disorder (CMS/HCC); Anxiety [facility] Comment on above: NIRMALA (obstructive sleep apnea) (Primary D x); PAH (pulmonary artery hypertension) (CMS/HCC); Chronic right hip pain; Morbid (severe) obesity due to excess calories (CMS/HCC); Bipolar 1 disorder (CMS/HCC); Anxiety Start: 05-21-2024 End: 05-21-2024 Patient encounter procedure 05/21/2024 9:00 AM EST Office Visit [facility] [address] [place] [address] Essie Ryan, NETO [address] [place] [phone] [facility] Start: 05-17-2024 End: 05-17-2024 Patient encounter procedure 05/17/2024 8:15 AM EST Office Visit [facility] [address] [place] [phone] Jeff Rossi MD [address] [place] [address] [facility] Start: 05-09-2024 End: 05-09-2024 Admission to same day surgery center 05/09/2024 10:30 AM EST - 05/09/2024 11:00 AM EST Surgery [place] [address] [place] [address] Jeff Rossi MD [address] [place] [address] [address] [place] [address] ENDOSCOPIC DIAGNOSTIC DRUG INDUCED SLEEP [06790 (CPT )] [facility] Comment on above: ENDOSCOPIC DIAGNOSTIC DRUG INDUCED SLEEP [47698 (CPT )] Start: 05-09-2024 Subsequent hospital visit by physician 05/09/2024 10:30 AM EST Hospital Encounter [place] [address] [place] [address] Jeff Rossi MD [address] [place] [address] [place] [address] [facility] Start: 05-09-2024 End: 05-09-2024 ENDOSCOPIC DIAGNOSTIC DRUG INDUCED SLEEP [facility] Start: 05-02-2024 End: 05-02-2024 Admission to establishment 05/02/2024 3:45 PM EST Support Visit [facility] On [address] [address] [facility] Start: 04-16-2024 End: 04-16-2024 Patient encounter procedure 04/16/2024 1:10 PM EDT Office Visit Orthopaedics [address] [place] [address] Lois Mckeon MD [address] [place] [address] MRI follow up Orthopaedics Comment on above: MRI follow up Start: 04-10-2024 End: 04-10-2024 Patient encounter procedure [facility] Comment on above: Arrived Start: 02-29-2024 End: 02-29-2024 Patient encounter procedure 02/29/2024 8:40 AM EDT Office Visit [facility] [address] [place] [address] Essie Ryan NP [address] [place] [address] Chronic rhinitis; Gastroesophageal reflux disease, unspecified whether esophagitis present [facility] Comment on above: Chronic rhinitis; Gastroesophageal reflux disease, unspecified whether esophagitis present Start: 02-25-2024 Covid-19 Vaccine ( season) Covid-19 Vaccine () [facility] Start: 02-25-2024 Influenza vaccination [facility] Start: 12-15-2023 DIABETES SCREEN DIABETES SCREEN [facility] Start: 12-15-2023 Diabetes Screening Diabetes Screening [facility] Start: 09-12-2023 End: 09-12-2023 Patient encounter procedure 09/12/2023 7:45 AM EDT Office Visit [facility] [address] [place] [phone] Imani Krueger, DIALYSIS RN-STRUCTURAL METAL WORKER [address] [place] [address] [facility] Start: 09-01-2023 End: 09-01-2023 Admission to same day surgery center 09/01/2023 9:18 AM EST - 09/01/2023 9:22 AM EST Surgery [facility] Pain Procedures [address] [place] [phone] Pj Gannon MD [address] [place] [address] INJECTION BURSA LARGE JOINT Right Hip [ (CPT )] [facility] Procedures Comment on above: INJECTION BURSA LARGE JOINT Right Hip [2 609 (CPT )] Start: 09-01-2023 End: 09-01-2023 Arthrocentesis aspir&/inj major jt/bursa w/o us INJECTION BURSA LARGE JOINT Chronic right hip pain 09/01/2023 9:18 AM EST [facility] Start: 09-01-2023 Subsequent hospital visit by physician 09/01/2023 9:18 AM EST Hospital Encounter [facility] Procedures [address] [place] [phone] Pj Gannon MD [address] [place] [address] [facility] Procedures Start: 08-30-2023 End: 08-30-2023 Patient encounter procedure 08/30/2023 8:15 AM EST Office Visit [facility] [address] [place] [phone] Evans Anderson, PAAndrewC [address] [place] [address] [facility] Start: 08-04-2023 Screening for malignant neoplasm of breast Mammogram Screening [facility] Start: 02-24-2023 Influenza vaccination Influenza Vaccine [facility] Start: 02-14-2023 Adult depression screening assessment DEPRESSION SCREENING [facility] Start: 02-24-2022 Influenza vaccination INFLUENZA (#1) [facility] Start: 12-15-2021 Colonoscopy COLONOSCOPY [facility] Start: 12-15-2021 COLORECTAL CANCER SCREENING COLORECTAL CANCER SCREENING [facility] Start: 12-15-2021 Screening for malignant neoplasm of colon [facility] Start: 2021 COLOGUARD (FIT-DNA) COLOGUARD (FIT-DNA) [facility] Start: [address] COLONOGRAPHY [facility] Start: 2021 FECAL OCCULT BLOOD FECAL OCCULT BLOOD [facility] Start: 2021 Lipid panel Lipid Screening [facility] Start: 2021 LIPID SCREEN LIPID SCREEN [facility] Start: 2021 Screening for malignant neoplasm of colon [facility] Start: 2021 SIGMOIDOSCOPY SIGMOIDOSCOPY [facility] Start: 2016 Mammography MAMMOGRAM [facility] Start: 2006 HPV TESTING HPV TESTING [facility] Start: 2006 Screening for malignant neoplasm of cervix HPV/Cotest [facility] Start: 1997 PAP TESTING PAP TESTING [facility] Start: 1997 Screening for malignant neoplasm of cervix [facility] Start: 1995 DTaP,Tdap and Td Vaccines (1 - Tdap) DTaP,Tdap and Td Vaccines (1 - Tdap) [facility] Start: 1995 HEPATITIS B (1 of 3 - Risk 3-dose series) HEPATITIS B (1 of 3 - Risk 3-dose series) [facility] Start: 1995 Hepatitis B Vaccine (1 of 3 - 19+ 3-dose series) Hepatitis B Vaccine (1 of 3 - 19+ 3-dose series) [facility] Start: 1995 Urine microalbumin profile [facility] Start: 1994 Adult BMI Follow Up Plan Adult BMI Follow Up Plan [facility] Start: 1994 Anxiety Screening Anxiety Screening [facility] Start: 1994 Depression Screening Depression Screening [facility] Start: 1994 HIV SCREENING HIV SCREENING [facility] Start: 1994 HIV screening HIV Screening [facility] Start: 1994 MMR (1 of 2 - Risk 2-dose series) MMR (1 of 2 - Risk 2-dose series) [facility] Start: 1988 Adult depression screening assessment DEPRESSION SCREENING [facility] Start: 1986 MENINGOCOCCAL B: Consider based on risk (1 of 4 - Increased Risk Bexsero 2-dose series) MENINGOCOCCAL B: Consider based on risk (1 of 4 - Increased Risk Bexsero 2-dose series) [facility] Start: 1977 HEPATITIS A (1 of 2 - Risk 2-dose series) HEPATITIS A (1 of 2 - Risk 2-dose series) [facility] Start: 1976 COVID-19 VACCINE (#1) COVID-19 VACCINE (#1) [facility] ECG COMPLETE ECG COMPLETE ECG Routine Pre-op evaluation 06/05/2024 10:36 AM EST [facility] End: 04-18-2025 MR Hip - right WO contrast MRI HIP WO IVCON RIGHT Radiology Routine Pain of right hip 1 Occurrences starting 03/19/2024 until 04/18/2025 [facility] Work Phone: Comment on above: 1 Occurrences starting 03/19/2024 until 04/18/2025 End: 08-20-2024 XR Pelvis and Hip - right 2 Views X-ray hip right 2-3 views with or without pelvis Imaging Routine Chronic right hip pain 1 Occurrences starting 08/21/2023 until 08/20/2024 [employer] Work Phone: Comment on above: 1 Occurrences starting 08/21/2023 until 08/20/2024 [facility] Immunizations Immunization Date Immunization Notes Care Provider [facility] 05-03-2012 influenza virus vaccine, whole virus Essie Ryan AGRICULTURAL RESEARCH ENGINEER Work Phone: [facility] 05-03-2012 influenza, injectabl e, quadrivalent, contains preservative Essie Shelby AGRICULTURAL RESEARCH ENGINEER Work Phone: [facility] 05-03-2012 influenza, whole Lynn CHRISTOPHER ERS [facility] 05-03-2012 influenza virus vaccine, unspecified formulation Evans Anderson PA-C Work Phone: [employer] Payers Date Payer Category Payer Managed Care HMO (unspecified) [employer] [id number] 2024 Unknown [id number] 2022 Medicaid [facility] MEDICAID [id number] 2022 Private Health Insurance [id number] 2020 Medicaid [facility] MEDICAID [facility] [facility] [id number] 2020-Present [phone] [address] [place] [address] Medicaid [id number] 2020 Medicaid [id number]. 1.13.159. [id number] 1976 Unknown [id number] 2.16.840.1.589719.3.579. 2.593 1976 Unknown [id number] 2.16.840.1.000158.3.579. 2.593 1976 Unknown [id number] 2.16.840.1.900892.3.579. 2.593 1976 Unknown [id number] 2.16.840.1.849785.3.579. 2.593 1976 Unknown [id number] 2.16.840.1.700765.3.579. 2.593 1976 Unknown [id number] 2.16.840.1.581093.3.579. 2.593 1976 Unknown [id number] 2.16.840.1.103878.3.579. 2.593 1976 Unknown [id number] 2.16.840.1.657169.3.579. 2.593 1976 Unknown [id number] 2.16.840.1.852823.3.579. 2.593 1976 Unknown [id number] 2.16.840.1.173048.3.579. 2.593 1976 Unknown [id number] 2.16.840.1.768390.3.579. 2.593 1976 Unknown [id number] 2.16.840.1.536364.3.579. 2.593 1976 Unknown [id number] 2.16.840.1.610445.3.579. 2.593 1976 Unknown [id number] 2.16.840.1.292891.3.579. 2.593 1976 Unknown [id number] 2.16.840.1.952368.3.579. 2.593 1976 Unknown [id number] 2.16.840.1.523547.3.579. 2.593 1976 Unknown [id number] 2.16.840.1.676494.3.579. 2.593 1976 Unknown [id number] 2.16.840.1.484776.3.579. 2.593 1976 Unknown [id number] 2.16.840.1.308664.3.579. 2.593 1976 Unknown [id number] 2.16.840.1.825178.3.579. 2.593 1976 Unknown [id number] 2.16.840.1.252689.3.579. 2.593 1976 Unknown [id number] 2.16.840.1.099205.3.579. 2.593 1976 Unknown [id number] 2.16.840.1.025333.3.579. 2.593 1976 Unknown [id number] 2.16.840.1.154216.3.579. 2.1286 1976 Unknown [id number] 2.16.840.1.393786.3.579. 2.1286 1976 Unknown [id number] 2.16.840.1.540489.3.579. 2.1286 1976 Unknown [id number] 2.16.840.1.459445.3.579. 2.1286 1976 Unknown [id number] 2.16.840.1.647567.3.579. 2.1286 1976 Unknown [id number] 2.16.840.1.592576.3.579. 2.1286 1976 Unknown [id number] 2.16.840.1.322012.3.579. 2.1286 1976 Unknown [id number] 2.16.840.1.885945.3.579. 2.1286 1976 Unknown [id number] 2.16.840.1.873916.3.579. 2.1286 1976 Unknown [id number] 2.16.840.1.531062.3.579. 2.1286 1976 Unknown [id number] 2.16.840.1.242506.3.579. 2.1286 1976 Unknown [id number] 2.16.840.1.556583.3.579. 2.1259 1976 Unknown [id number] 2.16.840.1.109863.3.579. 2.1259 1976 Unknown [id number] 2.16.840.1.604334.3.579. 2.9 1976 Unknown [id number] 2.16.840.1.252091.3.579. 2.9 1976 Unknown [id number] 2.16.840.1.979511.3.579. 2.9 1976 Unknown [id number] 2.16.840.1.970691.3.579. 2.9 1976 Unknown [id number] 2.16.840.1.591496.3.579. 2.9 1976 Unknown [id number] 2.16.840.1.011360.3.579. 2.727 1976 Unknown [id number] 2.16.840.1.265169.3.579. 2.727 1976 Unknown [id number] 2.16.840.1.416868.3.579. 2.727 1976 Unknown [id number] 2.16.840.1.277033.3.579. 2.727 1959 Unknown [id number] 2.16.840.1.632987.19 1959 Unknown [id number] Unknown Social History Date Type Detail Facility Start: 02-21-2022 End: 08-28-2024 Sex Assigned At [facility] Start: 07-27-2016 End: 10-25-2023 Tobacco smoking status NHIS Never smoked tobacco [facility] Start: 07-27-2016 End: 10-25-2023 Tobacco use and exposure Smokeless tobacco non-user [facility] Start: 12-15-2020 End: 09-06-2024 Alcohol intake Current non-drinker of alcohol (finding) [facility] Start: 1975 Sex Assigned At Not on file [facility] Start: 01-07-2022 End: 02-21-2022 Exposure to SARS-CoV-2 (event) Not sure [facility] Tobacco Past [facility] Comment on above: stopped 12 years ago stopped 12 years ago Tobacco smoking status No Smoking Status Entered [facility] [place] Tobacco smoking status Never [facility] Start: 02-21-2022 End: 08-28-2024 History of Social function [facility] Start: 02-29-2024 End: 01-01-2025 Alcoholic beverage intake Lifetime non-drinker (finding) [facility] Start: 01-29-2015 [facility] (finding[facility] How hard is it for you to pay for the very basics like food, housing, medical care, and heating Not very hard [facility] Do you feel stress - tense, restless, nervous, or anxious, or unable to sleep at night because your mind is troubled all the time - these days [OSQ] Only a little [facility] Tobacco smoking status NHIS Unknown if ever smoked [facility] Work Phone: Start: 1975 Sex Assigned At Female F [facility] NEGATED: Highlighted rowStart: NINF History of tobacco use Passive smoker [facility] Medical Equipment Procedure Code Equipment Code Equipment Origin al Text Equipment Identifier Dates Insert Acetabula r 32mm 0d D Hip X3 Trident Sterile Latex Free - [id number] Start: 07-01-2024 Shell Trident Ii 48mm D Tritanium Acetabular 3 Screw Hole Cluster Sterile - [id number] Start: 07-01-2024 Stem Femoral 8x9 9mm Size 2 High Insignia Collared - [id number] Start: 07-01-2024 Head V40 32mm -4 mm Offset Taper Biolox Delta Femoral Hip - [id number] Start: 07-01-2024 Screw Trident Ii 6.5mm 30mm Bone Low Profile Hexagonal Sterile - [id number] Start: 07-01-2024 Generator Nrstm - [id number] - [id number] Start: 08-22-2024 Lead Ns Respirat ory - [id number] - [id number] Start: 08-22-2024 Lead Nrstm Inspr 3 Elect Cuf Tnl Arnoldo Strl Lf - [id number] - [id number] Start: 08-22-2024 Functional Status Date Assessment Result Facility 11-28-2023 Functional Status N/A [facility] 05-29-2023 Functional Status N/A [facility] 11-24-2022 Functional Status N/A [facility] 04-26-2022 Functional Status N/A [facility] Clinical Notes 12-14-2020 to 01-09-2025 Essie Ryan NP - 01/09/2025 9:53 AM Raghu Ryan NP - 01/01/2025 1:24 PM EDTHGERARDO KOHLI - 01/01/2025 1:00 PM Raghu Ryan NP - 01/01/2025 1:00 PM EDTPatient Instructions Note Date & Type Note Facility 01-09-2025 History of Presen t illness Narrative Associated Problem(s): Chronic right hip pain Cannot see ortho who did surgery anymore as she has new insurance documented in this encounter [facility] 07-09-2025 History of Presen t illness Narrative Associated Problem(s): Chronic right hip pain Cannot see ortho who did surgery anymore as she has new insurance Right hip pain since having surgery Images from the original note were not included. Stacey Sahu is a 49 y.o. female presents with chief complaint of Anxiety HPI: Here for 3 month fu: Dizziness: saw cardiology, holter, PVC/PAC's started on cardizem doing well, had ECHO: no longer PAH, also was started on losartan for blood pressure no chest pain/pressure Mental health: no SI/HI/hallucinations, feels meds are working Continues with right hip pain, tenderness to incision site, no s/s infection, feels like a squeeze/pressure around the right thigh. Last saw her ortho in 08/20, she now has new insurance and they no longer taking her insurance, will need a new ortho. Overall the pain is better than prior to surgery, but feels like different sometimes feels the right leg is longer than the left and causes balance issues SUBJECTIVE: MEDICATIONS: Current Outpatient Medications Medication Instructions ARIPiprazole (ABILIFY) 15 mg, Oral, Daily atorvastatin (LIPITOR) 80 mg, Oral, Every evening busPIRone (BUSPAR) 7.5 mg, Oral, 2 times daily dilTIAZem CD (CARDIZEM CD) 120 mg, Daily RT losartan (COZAAR) 100 mg, Daily RT meloxicam (MOBIC) 15 mg, Daily omeprazole (PRILOSEC) 40 mg, Oral, Daily [...] suicidal ideas. The patient is not nervous/anxious. Mood disorder Hematological: Does not bruise/bleed easily. Endocrine: Negative for polydipsia, polyphagia and polyuria. Allergic/Immunologic: Negative for environmental allergies and food allergies. PAST MEDICAL HISTORY Past Medical History: Diagnosis Date Acute thigh pain, right Allergic rhinitis Anxiety 07/25/2023 Bipolar disorder (HCC) Chest pain 02/09/2012 Chronic GERD Chronic rhinitis 2023 Constipation COVID-19 01/2022 Crohn's disease (HCC) De Quervain's tenosynovitis, right Dyspnea on exertion Edema of extremities Elevated serum glucose Enlarged thyroid Flank pain 11/08/2022 Gross hematuria 11/08/2022 History of nausea Hot flashes Hyperlipidemia 09/11/2023 Lumbar back pain with radiculopathy affecting right lower extremity Multiple thyroid nodules Nocturia 01/14/2023 Obese 11/08/2022 Obesity, morbid ([facility]) NIRMALA (obstructive sleep apnea) Other acute sinusitis 06/07/2023 Other hyperlipidemia 12/14/2020 Pain of right upper extremity Pelvic pain 01/14/2023 Pulmonary arterial hypertension (HCC) Right hip pain Shingles Shortness of breath Small bowel obstruction (HCC) Superficial venous thrombosis of arm, right Trochanteric [...] in her father. OBJECTIVE: Visit Vitals BP 108/80 (BP Location: Left arm, Patient Position: Sitting, BP Cuff Size: Large adult) Pulse 86 Temp 97.8 F (Temporal) Resp 18 Wt 199 lb 12.8 oz SpO2 97% BMI 39.02 kg/m Smoking Status Never BSA 1.96 m Physical Exam Vitals and nursing note [...] Normal pulses. Heart sounds: Normal heart sounds. No murmur heard. Pulmonary: Effort: Pulmonary effort is normal. Breath sounds: Normal breath sounds. No wheezing or rhonchi. Abdominal: General: Bowel sounds are normal. There is no distension. Palpations: Abdomen is soft. There is no mass. Tenderness: There is no abdominal tenderness. Musculoskeletal: Cervical back: Normal range of motion and neck supple. Right lower leg: No edema. Left lower leg: No edema. Comments: Well healed scar to right hip, no s/s infection Mild tenderness, limited end range internal/external rotation Lymphadenopathy: Cervical: No cervical adenopathy. Skin: General: [...] Visit NIRMALA (obstructive sleep apnea) - Primary Had Inspire device placement in 08/20 Activated on 09/27/24, feeling more energy, no sleeping during the day PAH (pulmonary artery hypertension) (HCC) Hx of this in the past and took letaris Recent ECHO 11/17: no evidence of PAH Anxiety Continue current meds: abilify, buspirone Relevant Medications busPIRone (Buspar) 15 MG tablet Hyperlipidemia On statin therapy Check labs yearly and prn dose changes Relevant Medications atorvastatin (Lipitor) 80 MG tablet Chronic right hip pain Cannot see ortho who did surgery anymore as she has new insurance Relevant Orders Ambulatory referral to Orthopaedic Surgery Morbid (severe) obesity due to excess calories ([facility]) Discussed with patient their BMI (actual, verses recommended). We have also discussed lifestyle modifications: attempts to perform physical activity as chronic conditions allow, also to monitor dietary intake: increasing protein/fruits/veggies and lowering carb intake (unless contraindicated). Limit sodas, juices, and sugary drinks.. Bipolar 1 disorder ([facility]) Is currently taking ability Does not want to see psych Bipolar disorder, unspecified ([facility]) Relevant Medications ARIPiprazole (Abilify) 15 MG tablet Dizziness and giddiness Saw cardiology, has PVC and PAC's. Was placed on Cardizem, much improved Primary hypertension Please check blood pressure daily and record DASH diet Limit caffeine Take medication as directed Contact office if chest pain, pressure, dizziness, shortness of breath, swelling legs Recommend slow position changes Current meds: losartan Relevant Medications losartan (Cozaar) 100 MG tablet Elevated glucose level On 11/25/24 129 Check A1c: Relevant Orders POCT glycosylated hemoglobin (Hb A1C) docked device (Completed) Other Visit Diagnoses Gastroesophageal reflux disease, unspecified whether esophagitis present Relevant Medications omeprazole (PriLOSEC) [address] capsule Associated Problem(s): PAH (pulmonary artery hypertension) (HCC) Hx of this in the past and took letaris Recent ECHO 11/17: no evidence of PAH Associated Problem(s): Elevated glucose level On 11/25/24 129 Check A1c: Associated Problem(s): Anxiety Continue current meds: abilify, buspirone Associated Problem(s): Bipolar 1 disorder (HCC) Is currently taking ability Does not want to see psych Associated Problem(s): Hyperlipidemia On statin therapy Check labs yearly and prn dose changes Associated Problem(s): Morbid (severe) obesity due to excess calories ([facility]) Discussed with patient their BMI (actual, verses recommended). We have also discussed lifestyle modifications: attempts to perform physical activity as chronic conditions allow, also to monitor dietary intake: increasing protein/fruits/veggies and lowering carb intake (unless contraindicated). Limit sodas, juices, and sugary drinks.. Associated Problem(s): Primary hypertension Please check blood pressure daily and record DASH diet Limit caffeine Take medication as directed Contact office if chest pain, pressure, dizziness, shortness of breath, swelling legs Recommend slow position changes Current meds: losartan Associated Problem(s): Dizziness and giddiness Saw cardiology, has PVC and PAC's. Was placed on Cardizem, much improved Associated Problem(s): NIRMALA (obstructive sleep apnea) Had Inspire device placement in 08/20 Activated on 09/27/24, feeling more energy, no sleeping during the day documented in this encounter [facility] 01-01-2025 Instructions Essie Ryan NP - 01/01/2025 1:00 PM EDT Referral to Ortho in [place] documented in this encounter [facility] 12-11-2024 Note Patient left a voice mail indicating she had not heard any updates regarding the alternate sleep lab or provider. Spoke with patient, confirmed referral and order were sent, provided phone number for [facility] sleep medicine. [facility] 11-11-2024 Note MD Cardiology - [facility] Subjective Stacey Sahu is a 49 y.o. year old female patient being seen for follow up echo and surgery clearance per Can Monroe, NIURKA. She is sill not having as much [...] meeting her. She is to see other providers in our clinic. She is a 49-year-old woman. She was previously evaluated for various symptoms including chest pain, shortness of breath and palpitations. She has history [...] on diltiazem to help with palpitations. Also her blood pressure was elevated. An echocardiogram was ordered. [...] kg/m??? Smoking Status Never BSA 1.94 m??? Physical Exam Constitutional: Appearance: She is well-developed. [...] , Rfl: cetirizine (ZyrTEC) 10 mg tablet, Gianni (more content not included)... [facility] 10-31-2024 Miscellaneous Notes 10/30 Order received Scheduled PAP INSPIRE at [facility] on 01/29/25 Confirmation [employer] Eduardo for PSG order Chat to pre auth OON message received [employer] PAP INSPIRE Order and use 09/06/24 Elan [employer] Notes This is an Inspire Fine-tune Study, not CPAP titration. Please schedule at [facility] Email to Sanjeev documented in this encounter [facility] 10-31-2024 Telephone encounter Note 10/30 Order received Scheduled PAP INSPIRE at [facility] on 01/29/25 Confirmation Pulse Yasmine Eduardo for PSG order Chat to pre auth OON message received [employer] PAP INSPIRE Order and use 09/06/24 Elan [employer] Notes This is an Inspire Fine-tune Study, not CPAP titration. Please schedule at [facility] Email to Sanjeev [facility] 10-30-2024 Note XR CHEST 2 VWS History: Chest Pain Procedure: 2 view PA and Lateral chest radiograph. Comparison: 08/22/2024 Findings: The heart and lungs show no acute findings, and the mediastinum and dionisio are grossly negative . No pneumothorax. Right-sided right-sided nerve stimulator. Impression: No acute pulmonary process. Finalized by Preet Pierre MD on 10/30/2024 3:32 PM [facility] 10-30-2024 Note SLEEP CLINIC FOLLOW- UP EVALUATION Date of Evaluation: 10/29/24 Referring Physician: Dr. Yumiko Tapia Chief Complaints: NIRMALA on Inspire??? therapy. History of Presenting Illness and Interval History: Stacey Sahu is a 49 y.o. woman presenting to the sleep clinic for follow-up evaluation. She was last seen in the clinic on 09/27/2024. On that visit, the Inspire??? device was turned on, and stimulation was set to 0.2 V, with a range of 0.1-1.1 V. She was advised to increase the settings by 0.1 V each as tolerated. She was educated about the potential adverse effects, as well as about use of remote to control the device. Weight loss was encouraged to improve sleep quality. Inspire??? fine-tune study was planned for 3 months from the activation. In the interim, she increased the settings on device to 0.3 V few times before decreasing it back to 0.2 V due to feeling sleepy/drunk in the morning. However she was able to finally increase it to 0.3 V towards the end of September, and has stayed at the same level since. 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 That feeling has since faded off. She has tolerated the increase well without any adverse effects. However, she complains of intermittent zaps in the chest, in the surgical area about 1-2/day. This started after she underwent mammogram about a month ago. The feeling is not always painful, but is enough to make herfeel disconcerted. She denies any other issues with the device, especially neck/tongue pain, dysphagia, dysarthria or trouble talking in the morning. The wounds continue to be healthy with no signs of infection. Overall, she has not experienced any significant change in her symptoms yet. She is desirous of getting the Inspire??? fine-tune study at [place], closer to her home. The study has not been scheduled yet. Will try to get her scheduled at [facility], since we were not sure that [place] would have the required technology for the study. 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 therapy. She [...] went to see Dr. Yumiko Tapia at [place] in 2023. She states that the her symptoms had worsened in the interim. She underwent another sleep study in October 2023, which confirmed presence of obstructive sleep apnea. Sequently, she was again placed on CPAP, using a fullface mask, but gave up within 2 days due to significant claustrophobia and pressure intolerance. Afterwards, she was suggested considering Inspire??? therapy, leading to referral to us. She stated that she had gained weight due to being on psych medications over the years. She has been on Abilify and since BuSpar since 2023. Summary of events: Diagnostic polysomnogram: 11/04/2023 Referral for Inspire??? evaluation: 03/06/2024 DISE: 05/09/2024 Implantation of Inspire??? device: 08/22/2024 Activation of device: 09/27/2024 Follow-up after activation: 10/31/2019 Inspire??? fine-tune study: Pending Sleep Schedule: Activities before bed: TV in the bed. Bed Time: 8:30-9 PM Sleep Latency: 1 hrs Nocturnal arousal: 3-4 times to use the bathroom Wakeup time: 6 AM, and feels tired Weekend Schedule: Goes to bed at 9PM, and wakes up at 7-8 AM. Nocturnal [...] taking Current Medications Affecting Sleep: Abilify, buspirone, naloxone and cetirizine. CPAP Details (Not using currently): Mask Type Full facemask Humidifier Yes Claustrophobia Yes Pressure Intolerance Yes Leakage No Aerophagia No Airway Congestion No Airway Dryness No Renews Supplies No Childhood Sleep History: Normal Restless Leg Syndrome Sympto (more content not included)... [facility] 10-07-2024 Note Patient Education Nephrology ESWL for Kidney Stones, Care After The following information offers guidance on how to care for yourself after your procedure. Your health care provider may also give you more specific instructions. If you have problems or questions, contact your health care provider. What can I expect after the procedure? After the procedure, it is common to have: ??? Some blood in your urine. This should only last for a few days. ??? Soreness in your back, sides, or upper abdomen for a few days. ??? Blotches or bruises on the area where the shock wave entered the skin. ??? Pain, discomfort, or nausea when pieces (fragments) of the kidney stone move through the tube that carries urine from the kidney to the bladder (ureter). Fragments may pass soon after the procedure. They may also take up to 4?8 weeks to pass. ? If you have severe pain or nausea, contact your health care provider. This may be caused by a large stone that was not broken up enough. This may mean that you need more treatment. ??? Some pain or discomfort during urination. ??? Some pain or discomfort in the lower abdomen or at the base of the penis. Follow these instructions at home: Medicines ??? Take mjto-uvc-bmtiegd and prescription medicines only as told by your health care provider. ??? If you were prescribed antibiotics, take them as told by your health care provider. Do not stop using the antibiotic even if you start to feel better. ??? Ask your health care provider if the medicine prescribed to you: ? Requires you to avoid driving or using machinery. ? Can cause constipation. You may need to take these actions to prevent or treat constipation: ? Take qovq-rui-dvrlpkm or prescription medicines. ? Eat foods that are high in fiber, such as beans, whole grains, and fresh fruits and vegetables. ? Limit foods that are high in fat and processed sugars, such as fried or sweet foods. Eating and drinking ??? Follow instructions from your health care provider about what you may eat and drink. You may be told to: ? Reduce how much salt (sodium) you eat or drink. Check ingredients and nutrition facts on packaged foods and drinks to see how much sodium they contain. ? Reduce how much meat you eat. ??? Drink enough fluid to keep your urine pale yellow. This can help you pass any pieces of the stone that are left. It can also prevent new stones from forming. ??? Eat plenty of fresh fruits and vegetables. ??? Eat the recommended amount of calcium for your age and gender. Ask your health care provider how much calcium you should have. Activity ??? Get plenty of rest as told by your health care provider. ??? Avoid sitting for a long time without moving. Get up to take short walks every 1?2 hours. This is important to improve blood flow and breathing. Ask for help if you feel weak or unsteady. ??? Your health care provider may tell you to lie in a certain position (postural drainage) and tap firmly (percuss) over your kidney area to help stone fragments pass. Follow instructions as told by your health care provider. ??? Return to your normal activities as told by your health care provider. Ask your health care provider what activities are safe for you. Most people can resume normal activities 1?2 days after the procedure. General instructions ??? If told, strain all urine through the strainer that was provided by your health care provider. ? Keep all fragments for your health care provider to see. Any stones that are found may be sent to a medical lab for examination. The stone may be as small as a grain of salt. ??? Keep all follow-up visits. This is important if you had a stent placed because it may need to stay in place for a few weeks. Ask your health care provider when the stent will be removed. Contact a health care provider if: ??? You have a fever or chills. ??? You have severe nausea that leads to persistent vomiting. ??? You have any of these urinary symptoms: ? Increased blood or blood clots in the urine. ? Urine that smells bad or unusual. ? A strong urge to urinate after emptying your bladder. ? Pain or burning with urination that does not go away. ? A continued need to urinate more often than usual. ??? You have a stent, and it comes out. Get help right away if: ??? You have severe pain in your back, sides, or upper abdomen. ??? You faint. ??? You have any of these urinary symptoms: ? Severe pain while urinating. ? More blood in your urine, or blood in your urine when you did not have any before. ? Blood clots in your urine larger than 1 inch (2.5 cm) in size. ? You pass only a small amount of urine when you urinate or are unable to pass any urine. This information is not intended to replace advice given to you by your health care provider. Make sure you discuss any questions you have with your health care provider. Document Revised: 10/13/ (more content not included)... [facility] 10-03-2024 Note Cardiovascular Medic [facility] SUBJECTIVE Chief Complaint Patient presents with Hypertension Hyperlipidemia HPI Stacey Sahu is a 49 y.o. female here for follow-up. PMHx: pulmonary HTN, HLD, palpitations 10/03/2024 Patient here for 6 month follow up. Patient had labs done in May 2024. Patient states she stopped taking her 81 mg Asprin. Patient is not taking Lipitor due to nausea. Patient state she is not having to much chest pain when chest pain does occur she states nothing in particular brings it on, it can occur in bed or with different activity. She describes it as sharp, stabbing, heaviness. Patient does have SOB when she goes up the stairs. Patient does feel a fluttering in her chest that comes and goes, nothing in particular bring it on the fluttering it just happens. Patient denies leg swelling. Patient states she had the inspire implanted for sleep apnea. She has been having increase in palpitations. She has accompanied chest pain - pain is midsternal. It feels like her heart is racing at times or it will feel like it is going really slow. She has had episodes of chest pain at rest, again midsternal, nonradiating. She has COBIAN with climbing stairs. This feels worse than normal for her. Denies any orthopnea, PND, LE edema, weight gain. She had stopped atorvastatin back in June as she was feeling nauseated daily with the higher dose. She has some occasional palpitations that feel [...] since stopping it a couple years ago. ------- Fup ; hx PH on Letairis tx doing well. (remote use of Adipex 2011) Preserved LVEF - RVSP 27mmHg Normal cors ([facility] 03/2012) Exercise stress 2014- no ischemia [...] hip arthroplasty Degeneration of lumbar intervertebral disc Past Medical History: Diagnosis Date Pulmonary hypertension (CMS/HCC) Sleep apnea (spontaneous vaginal delivery) 07/27/2016 Past Surgical History: Procedure Laterality Date HYSTERECTOMY Family History Problem Relation Name Age of Onset Coronary artery disease Father Social History Tobacco Use Smoking status: Never Smokeless tobacco: Never Vaping Use Vaping status: Never Used Substance Use Topics Alcohol use: Not Currently Drug use: Never ROS Cardiovascular: Positive for chest pain, dyspnea on exertion and palpitations. Hematologic/Lymphatic: Bruises/bleeds easily. OBJECTIVE Visit Vitals BP (!) 137/91 (BP Location: Right arm, Patient Position: Sitting) Pulse 86 Ht 1.524 m (5') Wt 88 kg (194 lb) SpO2 98% BMI 37.89 kg/m??? Smoking Status Never BSA 1.93 m??? Medications: Current Outpatient Medications: ARIPiprazole (Abilify) 10 mg tablet, Take 10 mg by mouth in the morning., Disp: , Rfl: busPIRone (Buspar) 7.5 mg tablet, Take 7.5 mg by mouth twice a day., Disp: , Rfl: cetirizine (ZyrTEC) 10 mg tablet, Take 10 mg by mouth in the morning., Disp: , Rfl: meloxicam (Mobic) 15 mg tablet, Take 15 mg by mouth in the morning., Disp: , Rfl: omeprazole (PriLOSEC) [address] capsule, Take 40 mg by mouth in the morning., Disp: , Rfl: aspirin 81 mg (more content not included)... [facility] 10-03-2024 Note Patient here for 6 m [facility] follow up. Patient had labs done in May 2024. Patient states she stopped taking her 81 mg Asprin. Patient is not taking Lipitor due to nausea. Patient state she is not having to much chest pain when chest pain does occur she states nothing in particular brings it on, it can occur in bed or with different activity. She describes it as sharp, stabbing, heaviness. Patient does have SOB when she goes up the stairs. Patient does feel a fluttering in her chest that comes and goes, nothing in particular bring it on the fluttering it just happens. Patient denies leg swelling. Patient states she had the inspire implanted for sleep apnea. Review of Systems Cardiovascular: Positive for chest pain, dyspnea on exertion and palpitations. Hematologic/Lymphatic: Bruises/bleeds easily. [facility] 09-30-2024 History of Presen t illness Narrative [...] DORSAL COMPARTMENT RELEASE Right 10/17/2018 first- Dr. Bgaley HYSTERECTOMY 09/22/2016 total IR FINE NEEDLE ASPIRATION [...] Inspire device doctor documented in this encounter [facility] 09-30-2024 Instructions Essie Ryan NP - 09/30/2024 1:20 PM EDT Talk with dr who placed inspire device about the dizziness to see if this is common or not If worsening in severity or freq of dizziness let me know and I will refer to ortho documented in this encounter [facility] 09-27-2024 Note SLEEP CLINIC FOLLOW- UP EVALUATION [...] was originally referred to us by her seal mixing operator for evaluation for Inspire??? therapy. She [...] went to see Dr. Yumiko Tapia at [place] in 2023. She states that the her [...] Labs: Previous [employer] [employer] [place] labs: NA [place] Sleepiness Scale: How likely are you to [...] carrying out certain (more content not included)... [facility] 09-06-2024 History of Presen t illness Narrative [facility] [address] [place] [facility] [id number] SUBJECTIVE: Patient ID (1975): Stacey Sahu is [...] History: Diagnosis Date Anxiety Arthritis Bipolar disorder ([facility]) Crohn's colitis ([facility]) Depression GERD (gastroesophageal reflux disease) H/O methicillin resistant Staphylococcus aureus infection Hyperlipidemia MRSA (methicillin resistant Staphylococcus aureus) 2022 nasal Obesity Pleurisy Pulmonary hypertension ([facility]) told many years ago Sleep apnea Visual impairment glasses Past Surgical History: Procedure Laterality Date COLECTOMY 2003 COLONOSCOPY several ENDOSCOPIC DIAGNOSTIC DRUG INDUCED SLEEP N/A 05/09/2024 Performed by Jeff Rossi MD at [facility] SURGERY HYSTERECTOMY 2017 INJECTION BURSA LARGE JOINT Right Hip Right 09/01/2023 Performed by Pj Gannon MD at [facility] SPINE TRANSFORAMINAL Right L 5,1 Nroot Right 05/26/2023 Performed by Pj Gannon MD at [facility] INSERTION STIMULATOR NERVE HYPOGLOSSAL - Inspire N/A 08/22/2024 Performed by Jeff Rossi MD at [facility] RELEASE DEQUERVAINS CONTRACTURE Right 10/17/2018 Performed by Dereck Bagley DO at [facility] THYROID SURGERY 12/2022 nodule removed and lymph node biopsy TONSILLECTOMY as a child TOTAL HIP ARTHROPLASTY Right 07/01/2024 [facility] TUBAL LIGATION 2002 ablation done at same time Family History [...] Resource Strain: Low Risk (08/28/2024) Received from [facility] Overall Financial Resource Strain (CARDIA) Difficulty of Paying Living Expenses: Not very hard Food Insecurity: No Food Insecurity (08/28/2024) Received from [facility] Hunger Vital Sign Worried About Running Out of Food in the Last Year: Never true Ran Out of Food in the Last Year: Never true Transportation Needs: No Transportation Needs (08/28/2024) Received from [facility] PRAPARE - Transportation Lack of Transportation (Medical): No Lack of Transportation (Non-Medical): No Physical Activity: Inactive (08/28/2024) Received from [facility] Exercise Vital Sign Days of Exercise per Week: 0 days Minutes of Exercise per Session: 0 min Stress: No Stress Concern Present (08/28/2024) Received from [facility] Thai [employer] of Occupational Health - Occupational Stress Questionnaire Feeling of Stress : Only a little Social Connections: Socially Isolated (08/28/2024) Received from [facility] Social Connection and Isolation Panel [NHANES] Frequency of Communication with Friends and Family: Once a week Frequency of Social Gatherings with Friends and Family: Once a week Attends Mormonism Services: Never Active Member of Clubs or Organizations: No Attends Club or Organization Meetings: Never Marital Status: Interpersonal Safety: Unknown (08/17/2023) Received from [facility] Safety & Environment Fear of Current or Ex-Partner: Not on file Emotionally Abused: Not on file Physically Abused: Not on file Sexually Abused: Not on file Physically or Sexually Abused: Not on file Housing Instability: Low Risk (08/28/2024) Received from [facility] Housing Stability Vital Sign Unable to Pay [...] reflux disease. GERD [facility] No current [...] MD by Varinder Jose (scribe). Varinder Jose 09/06/2024 8:40 AM Provider Statement: [...] to ensure the accuracy of this automated sap manager, some errors in sap manager may have occurred. Varinder Jose 09/06/24 0748 Jordana Kidd CNA 09/06/24 0826 Varinder Jose 09/06/24 0840 documented in this encounter [facility] 09-06-2024 Instructions Varinder Jose - 09/06/2024 8:15 AM EDT Images from [...] test result within 7 days, please call [phone] to leave a request for your results. [...] Ultrasound, MRI or PET scan, please call [facility] Scheduling at [phone]. If you need to be scheduled for surgery, please call Shaila Savage, Surgery Coordinator at [phone], or our main number [phone] if you have not received a return [...] (and medications that contain aspirin): Many non-prescription (lexn-rxh-mjkzjmi or OTC) medications contain aspirin. If you are unsure whether a medication you take has aspirin, please ask your pharmacist or your surgeon's office. You must ask your surgical team if they want you to continue taking, or stop taking aspirin before your procedure. Medications containing aspirin that should be stopped 7 days before surgery: Saritha-Puposky Anacin Aspirin Fiorinal Ascriptin Pamela Bufferin Lortab [...] L-carnosine Licorice Kava kava Milk thistle Multivitamin Edison-3 Resveratrol Skullcap Wetmore's wort Vitamin E Adipex (phentermine) Jacob (orlistat) Hydroxycut Elvie Encinaspberry Ketones Iirooysp-Z-67 should be stopped 14 days before surgery You will receive specific instructions regarding your insulin and anti-coagulant/anti-platelet medications (if applicable). -- documented in this encounter [facility] 08-28-2024 History of Presen t illness [...] right Allergic rhinitis Anxiety 07/25/2023 Bipolar disorder ([facility]) Chest pain 02/09/2012 Chronic GERD Chronic rhinitis 2023 Constipation COVID-19 01/2022 Crohn's disease ([facility]) De Quervain's tenosynovitis, right Dyspnea on exertion Edema of extremities Elevated serum glucose Enlarged thyroid ([facility]) Flank pain 11/08/2022 Gross hematuria 11/08/2022 History of nausea Hot flashes Hyperlipidemia ([facility]) 09/11/2023 Lumbar back pain with radiculopathy affecting right lower extremity Multiple thyroid nodules ([facility]) Nocturia 01/14/2023 Obese 11/08/2022 Obesity, morbid (CMS/HCC) [...] No rash. Comments: Incision from inspire w steri stips , +ecchymosis, but no s/s infection [...] both small and large intestine without complications ([facility]) Continue to follow with GI Gastro-esophageal reflux [...] inspire placement recenlty PAH (pulmonary artery hypertension) ([facility]) Saw cardiology in the past, was on [...] Morbid (severe) obesity due to excess calories ([facility]) Discussed with patient their BMI (actual, verses recommended). We have also discussed lifestyle modifications: attempts to perform physical activity as chronic conditions allow, also to monitor dietary intake: increasing protein/fruits/veggies and lowering carb intake (unless contraindicated). Limit sodas, juices, and sugary drinks.. Bipolar disorder, unspecified ([facility]) Used to see psych, does not want to continue with them Current meds: raysa gant PHQ 9=9 FLOR 7=6 Relevant Medications ARIPiprazole [...] inspire placement recenlty documented in this encounter [facility] 08-28-2024 Instructions Essie Ryan NP - 08/28/2024 1:20 PM EST No medication dose changes Get labs checked-they are fasting, but make sure you drink plenty of water before going documented in this encounter [facility] 07-30-2024 Note HNO ID: [id number] Author: LOIS MCKEON MD Service: ? Author [...] she seeks an appointment. Lois Mckeon MD [facility] 07-30-2024 History of Presen t illness Narrative [...] Lois Mckeon MD documented in this encounter [facility] 07-30-2024 History of Presen t illness [...] PATIENT PRESENTS WITH AN IMPLANTABLE OR ATTACHED ENTRY LEVEL TRUCK DRIVER: No RADIOLOGY DEPARTMENT: General X-ray: Exam(s) Completed: Pelvis X-Ray: Pelvis with Hip Right and Wt. Bearing PERIPHERAL IV DATA: Not applicable SIGNED BY: MAMTA Carbajal July 30, 2024 1:34 PM documented in this encounter [facility] 07-30-2024 Note HNO ID: [id number] Author: LETTY ONTIVEROS CT Service: Radiology Author [...] PATIENT PRESENTS WITH AN IMPLANTABLE OR ATTACHED ENTRY LEVEL TRUCK DRIVER: No RADIOLOGY DEPARTMENT: General X-ray: Exam(s) Completed: Pelvis X-Ray: Pelvis with Hip Right and Wt. Bearing PERIPHERAL IV DATA: Not applicable SIGNED BY: MAMTA Carbajal July 30, 2024 1:34 PM [facility] 07-29-2024 Miscellaneous Notes Pre-Cert - Vivian Yohan - Called and told me Stacey's surgery is not covered under her new [employer] health insurance. Vivian said she would call Stacey and give her the update to see what she wants to do. documented in this encounter [facility] 07-29-2024 Telephone encounter Note Pre-Cert - Vivian Mason - Called and told me Stacey's surgery is not covered under her new [employer] health insurance. Vivian said she would call Stacey and give her the update to see what she wants to do. [facility] 07-26-2024 Miscellaneous Notes Summary: 08/01/24 [facility] Parent / Self notified of surgery time, 11:30 told them to arrive two hours prior. 09:30 emergency room entrance. Thank you! Shaila - [phone] documented in this encounter [facility] 07-26-2024 Telephone encounter Note Summary: 08/01/24 [facility] Parent / Self notified of surgery time, 11:30 told them to arrive two hours prior. 09:30 emergency room entrance. Thank you! Shaila - [phone] [facility] [employer] 07-23-2024 History and physical note PRE-ADMISSION TESTING HISTORY AND PHYSICAL EXAM DATE: 07/23/24 PCP: ESSIE RYAN, LAY-STRUCTURAL METAL WORKER HISTORY OF PRESENT ILLNESS: Stacey Sahu, a 49 y.o. White or female, presents to [facility] for a pre-surgical H&P. The patient [...] History: Diagnosis Date Anxiety Arthritis Bipolar disorder ([facility]) Crohn's colitis ([facility]) Depression GERD (gastroesophageal reflux disease) H/O methicillin resistant Staphylococcus aureus infection Hyperlipidemia MRSA (methicillin resistant Staphylococcus aureus) 2022 nasal Obesity Pleurisy Pulmonary hypertension ([facility]) told many years ago Sleep apnea Visual impairment glasses PAST SURGICAL HISTORY: Past Surgical History: Procedure Laterality Date COLECTOMY 2003 COLONOSCOPY several ENDOSCOPIC DIAGNOSTIC DRUG INDUCED SLEEP N/A 05/09/2024 Performed by Jeff Rossi MD at [facility] SURGERY HYSTERECTOMY 2017 INJECTION BURSA LARGE JOINT Right Hip Right 09/01/2023 Performed by Pj Gannon MD at [facility] IN[facility] SPINE TRANSFORAMINAL Right L 5,1 Nroot Right 05/26/2023 Performed by Pj Gannon MD at [facility] RELEASE DEQUERVAINS CONTRACTURE Right 10/17/2018 Performed by Dereck Bagley DO at [facility] THYROID SURGERY 12/2022 nodule removed and lymph node biopsy TONSILLECTOMY as a child TOTAL HIP ARTHROPLASTY Right 07/01/2024 [facility] TUBAL LIGATION 2002 ablation done at [...] place, and time. PERTINENT TESTING AVAILABLE IN [facility] (WITHIN THE PAST 2 YEARS): EK10/03/2018 [...] the most recent lab values available in [facility] at the time the H&P was signed. ASSESSMENT / DIAGNOSIS: Obstructive sleep apnea [G47.33] PLAN: Stacey Sahu is scheduled for Insertion Stimulator Nerve Hypoglossal - Inspire on 08/01/[address] Rossi. ADELA Martinez 07/23/24 1536 [facility] [employer] Work Phone: 07-23-2024 History and physical note PRE-ADMISSION TESTING HISTORY AND PHYSICAL EXAM DATE: 07/23/24 PCP: ADELA SMITH HISTORY OF PRESENT ILLNESS: Stacey Sahu, a 49 y.o. White or female, presents to [facility] for a pre-surgical H&P. The patient [...] History: Diagnosis Date Anxiety Arthritis Bipolar disorder ([facility]) Crohn's colitis ([facility]) Depression GERD (gastroesophageal reflux disease) H/O methicillin resistant Staphylococcus aureus infection Hyperlipidemia MRSA (methicillin resistant Staphylococcus aureus) 2022 nasal Obesity Pleurisy Pulmonary hypertension ([facility]) told many years ago Sleep apnea Visual impairment glasses PAST SURGICAL HISTORY: Past Surgical History: Procedure Laterality Date COLECTOMY 2002 COLONOSCOPY several ENDOSCOPIC DIAGNOSTIC DRUG INDUCED SLEEP N/A 05/09/2024 Performed by Jeff Rossi MD at [facility] HYSTERECTOMY 2017 INJECTION BURSA LARGE JOINT Right Hip Right 09/01/2023 Performed by Pj Gannon MD at [facility] INJECTION SPINE TRANSFORAMINAL Right L 5,1 Nroot Right 05/26/2023 Performed by Pj Gannon MD at [facility] RELEASE DEQUERVAINS CONTRACTURE Right 10/17/2018 Performed by Dereck Bagley DO at [facility] THYROID SURGERY 12/2022 nodule removed and lymph node biopsy TONSILLECTOMY as a child TOTAL HIP ARTHROPLASTY Right 07/01/2024 [facility] TUBAL LIGATION 2002 ablation done at [...] place, and time. PERTINENT TESTING AVAILABLE IN [facility] (WITHIN THE PAST 2 YEARS): EK10/03/2018 [...] the most recent lab values available in [facility] at the time the H&P was signed. ASSESSMENT / DIAGNOSIS: Obstructive sleep apnea [G47.33] PLAN: Stacey Sahu is scheduled for Insertion Stimulator Nerve Hypoglossal - Inspire on 08/01/[address] Rossi. ADELA Martinez 07/23/24 1536 documented in this encounter [facility] 07-23-2024 Instructions Rashida Mcneil RN - 07/23/2024 2:15 PM EST Your surgery/procedure is scheduled at [facility] on 08/01/24 at to call with arrival time [facility] Address: [address] [place] [address], [address] [address] in the Emergency Center Parking lot. Report to the front end alignment specialist in the Emergency/Surgery Registration lobby of the hospital. Notify your SURGEON if you develop any illness such as a cold, cough, fever, sore throat, vomiting or are hospitalized between now and your surgery. Please call Pre-Admission Clinic at [phone] if you have any questions prior to surgery. For questions the morning of surgery, call the Pre-op Department at [phone]. Medication Instructions (Do not stop your medications [...] would like to schedule therapy at a [facility] facility, please call [phone] ([phone]). Do not use lotions, creams, powders, perfume, make up, cologne or after-shaves day of surgery. Remove ALL jewelry including wedding rings, body piercings, hair extensions that contain metal, nail eritrean, make-up, and contact lens. You may brush your teeth the morning of surgery, but do not swallow the water. Wear your dentures and partial plates to the hospital (no adhesive). Shower the night the before. If applicable, use the CHG (chlorhexidine gluconate) soap or wipes. Please be advised, [employer] has transitioned to a cashless payment system. [...] RIGHTS AND RESPONSIBILITIES As a patient at [facility], you have the right to: Receive medical care and be informed of who is taking care of you Be treated with dignity and respect Have a family member/veterans service representative of choice and your physician notified of your admission Receive information and actively participate in decisions about your care and treatment Refuse care, treatment and services Decide who may provide your support and speak for you Access buddhist and spiritual services Participate in ethical issues [...] of hospital charges and payment methods Patient/patient veterans service representative responsibilities are to: Provide information about [...] in clean clothes. documented in this encounter [facility] 07-01-2024 Note HNO ID: [id number] Author: DANA HOWE MD Service: Anesthesiology Author [...] Staffing Anesthesiologist: Dana Howe MD Resident: Jeff Vrede MD Performed by: resident Preparation Sterility Preparation: [...] July 01, 2024 TIME: 8:07 AM CSN: [id number] [facility] 06-05-2024 History and physical note Images from the original note were not included. [facility] HISTORY AND PHYSICAL EXAMINATION SERVICE DATE: 06/05/2024 SERVICE TIME: 9:56 AM PRIMARY CARE PHYSICIAN: Essie Ryan CNP, STRUCTURAL METAL WORKER REASON FOR VISIT: Stacey Sahu is a [...] STOP-Bang Score: 0 (Non-compliant with CPAP ) [id number] Score: Age: <65 Sex: female [id number] Score: ARISCAT Score: Age: <=50 Preoperative SpO2: [...] x 4 Crohn's disease without complication (HCC) [id number] Pulmonary Htn (Hcc) Obese Nirmala (Obstructive Sleep [...] fevers. Neuro: No history of TIA's, stroke, KAI WHAKARURUHAU tumor, impaired sensorium, hemiplegia, paraplegia or quadraplegia. [...] Stacey Sahu DATE: 06/05/2024 TIME: 9:56 AM [facility] 06-05-2024 History and physical note Images from the original note were not included. [facility] HISTORY AND PHYSICAL EXAMINATION SERVICE DATE: 06/05/2024 SERVICE TIME: 9:56 AM PRIMARY CARE PHYSICIAN: Essie Ryan CNP, STRUCTURAL METAL WORKER REASON FOR VISIT: Stacey Sahu is a [...] STOP-Bang Score: 0 (Non-compliant with CPAP ) [id number] Score: Age: <65 Sex: female [id number] Score: ARISCAT Score: Age: <=50 Preoperative SpO2: [...] x 4 Crohn's disease without complication (HCC) [id number] Pulmonary Htn (Hcc) Obese Nirmala (Obstructive Sleep [...] fevers. Neuro: No history of TIA's, stroke, KAI WHAKARURUHAU tumor, impaired sensorium, hemiplegia, paraplegia or quadraplegia. [...] voices comprehension and compliance. SIGNATURE: Negrita Tejeda APRN.STRUCTURAL METAL WORKER PATIENT NAME: Stacey Sahu DATE: 06/05/2024 TIME: 9:56 AM documented in this encounter [facility] 06-04-2024 Instructions Negrita Tejeda APRN.NIURKA - 06/04/2024 8:24 AM EST Images from the original note were not included. [facility]est[facility] PATIENT PREOPERATIVE INSTRUCTIONS Lois Mckeon MD has scheduled you for your procedure at this surgery center: [facility]: [phone] --[address] [place] [address]. On your scheduled day of surgery, please [...] office. If you are currently using a [id number] injectable or oral medication for diabetes or [...] Procedures: - YOU MUST HAVE A RESPONSIBLE FUEL MANAGER TAKE YOU HOME. A PRODUCE MANAGER OR STAFF RADIATION THERAPIST CANNOT BE MADE A RESPONSIBLE FUEL MANAGER. - We recommend that a responsible person [...] Advance Directive, please fax a copy to [phone] or email to for it to be [...] chart that day. documented in this encounter [facility] 05-29-2024 History of Presen t illness Narrative Images from the original note were not included. Stacey Sahu is a 48 y.o. female presents with chief complaint of Bipolar HPI: Since last visit has seen ENT and ortho Hip; right hip replacement scheduled for 07/01/24 through [facility]. No changes in hip sxs, average pain [...] specialist for this PAH (pulmonary artery hypertension) ([facility]) Saw cardiology in the past, was on [...] Morbid (severe) obesity due to excess calories ([facility]) Discussed with patient their BMI (actual, verses recommended). We have also discussed lifestyle modifications: attempts to perform physical activity as chronic conditions allow, also to monitor dietary intake: increasing protein/fruits/veggies and lowering carb intake (unless contraindicated). Limit sodas, juices, and sugary drinks.. Bipolar 1 disorder ([facility]) Is currently taking ability Does not want [...] specialist for this documented in this encounter [facility] 05-29-2024 Instructions Essie Ryan NP - 05/29/2024 2:20 PM EST No med dose changes documented in this encounter [facility] 05-17-2024 History of Presen t illness Narrative [facility] [address] [facility] [id number] SUBJECTIVE: Patient ID (1975): Stacey Sahu is [...] History: Diagnosis Date Anxiety Arthritis Bipolar disorder ([facility]) Chronic pain disorder Crohn's colitis ([facility]) Depression GERD (gastroesophageal reflux disease) H/O methicillin resistant Staphylococcus aureus infection Hyperlipidemia Joint pain Obesity Pleurisy Pulmonary hypertension ([facility]) Pulmonary hypertension ([facility]) Sleep apnea cpap Past Surgical History: Procedure Laterality Date COLON SURGERY part of bowel removed d/t crohns dx COLONOSCOPY ENDOSCOPIC DIAGNOSTIC DRUG INDUCED SLEEP N/A 05/09/2024 Performed by Jeff Rossi MD at [facility] HYSTERECTOMY 2017 INJECTION BURSA LARGE JOINT Right Hip Right 09/01/2023 Performed by Pj Gannon MD at [facility] INJECTION SPINE TRANSFORAMINAL Right L 5,1 Nroot Right 05/26/2023 Performed by Pj Gannon MD at [facility] LYMPH NODE BIOPSY RELEASE DEQUERVAINS CONTRACTURE Right 10/17/2018 Performed by Dereck Bagley DO at [facility] THYROIDECTOMY, PARTIAL 12/2022 nodule TONSILLECTOMY as a child TUBAL LIGATION 2002 Family History Problem Relation Age of Onset [...] Resource Strain: Patient Declined (06/14/2023) Received from [facility] Overall Financial Resource Strain (CARDIA) Difficulty of Paying Living Expenses: Patient declined Food Insecurity: No Food Insecurity (05/06/2024) Hunger Screening Food Insecurity - Worry: Never True Food Insecurity - Inability: Never True Transportation Needs: No Transportation Needs (06/14/2023) Received from [facility] PRAPARE - Transportation Lack of Transportation (Medical): No Lack of Transportation (Non-Medical): No Physical Activity: Unknown (06/14/2023) Received from [facility] Exercise Vital Sign Days of Exercise per Week: 2 days Minutes of Exercise per Session: Patient declined Stress: Patient Declined (06/14/2023) Received from [facility] [place] [employer] - Occupational Stress Questionnaire Feeling of Stress : Patient declined Social Connections: Unknown (06/14/2023) Received from [facility] Social Connection and Isolation Panel [NHANES] Frequency of Communication with Friends and Family: Patient declined Frequency of Social Gatherings with Friends and Family: Patient declined Attends Mormonism Services: Patient declined Active Member of Clubs or Organizations: Patient declined Attends Club or Organization Meetings: Patient declined Marital Status: Interpersonal Safety: Unknown (08/17/2023) Received from [facility] Safety & Environment Fear of Current or Ex-Partner: Not on file Emotionally Abused: Not on file Physically Abused: Not on file Sexually Abused: Not on file Physically or Sexually Abused: Not on file Housing Instability: Unknown (06/14/2023) Received from [facility], [facility] Housing Stability Vital Sign Unable to Pay [...] Cranial nerves 2 -12 grossly intact ASSESSMENT/PLAN: tSacey was seen today for post-op. Diagnoses and [...] to ensure the accuracy of this automated sap manager, some errors in sap manager may have occurred. Varinder Minniear 05/17/24 0744 Varinder Minniear 05/17/24 0819 Varinder Minniear 05/17/24 0820 documented in this encounter [facility] 05-17-2024 Instructions Jeff Rossi MD - 05/17/2024 [...] test result within 7 days, please call [phone] to leave a request for your results. [...] Ultrasound, MRI or PET scan, please call [facility] Scheduling at [phone]. If you need to be scheduled for surgery, please call Shaila Savage, Surgery Coordinator at [phone], or our main number [phone] if you have not received a return [...] (and medications that contain aspirin): Many non-prescription (ycno-kfj-iwuxqcp or OTC) medications contain aspirin. If you are unsure whether a medication you take has aspirin, please ask your pharmacist or your surgeon's office. You must ask your surgical team if they want you to continue taking, or stop taking aspirin before your procedure. Medications containing aspirin that should be stopped 7 days before surgery: Saritha-Puposky Anacin Aspirin Fiorinal Ascriptin Pamela Bufferin Lortab [...] L-carnosine Licorice Kava kava Milk thistle Multivitamin Edison-3 Resveratrol Skullcap Wetmore's wort Vitamin E Adipex (phentermine) Jacob (orlistat) Hydroxycut Garcinia Cambogia Raspberry Ketones Yaiuqclf-F-95 should be stopped 14 days before surgery You will receive specific instructions regarding your insulin and anti-coagulant/anti-platelet medications (if applicable). -- documented in this encounter [facility] 05-09-2024 Telephone encounter Note PSS calling from Dr Rossi's office to ask how soon the PT could be scheduled for surgery for inspire implant, nerve stimulator. General for 3 hours. Please advise [phone] ask to speak with Alejandra or Kashmir. [facility] 05-09-2024 Miscellaneous Notes PSS calling from Dr Rossi's office to ask how soon the PT could be scheduled for surgery for inspire implant, nerve stimulator. General for 3 hours. Please advise [phone] ask to speak with Alejandra or Kashmir. documented in this encounter [facility] 05-09-2024 Miscellaneous Notes Surgery Scheduling Request 05/09/24 Patient: Stacey Sahu : 1975 Surgical Procedure(s): Inspire Anesthesia: General Surgery Time: 3 hours Facility Preference: No preference Post Op Destination: Outpatient Preop Anesthesia Appointment?: Yes Medical Clearance Required?: No Nerve Monitor? Yes Special Equipment? Inspire When should patient follow up after surgery? One week Additional Comments: Dwayne 05-09, Called patient to schedule Inspire installation, Stacey mentioned she's having hip replacement Jul 01. I called her Ortho Surgeon at [facility], Dr Iwona Mckeon to ask about timeframe for being safe to have this surgery after her hip replacement recovery. Dr Iwona Mckeon nurse said she would call me back. documented in this encounter [facility] 05-09-2024 Telephone encounter Note Surgery Scheduling Request 05/09/24 Patient: Stacey Sahu : 1975 Surgical Procedure(s): Inspire Anesthesia: General Surgery Time: 3 hours Facility Preference: No preference Post Op Destination: Outpatient Preop Anesthesia Appointment?: Yes Medical Clearance Required?: No Nerve Monitor? Yes Special Equipment? Inspire When should patient follow up after surgery? One week Additional Comments: Dwayne [facility] Work Phone: 05-09-2024 Telephone encounter Note 05-09, Called patient to schedule Inspire installation, Stacey mentioned she's having hip replacement Jul 01. I called her Ortho Surgeon at [facility], Dr Iwona Mckeon to ask about timeframe for being safe to have this surgery after her hip replacement recovery. Dr Iwona Mckeon nurse said she would call me back. [facility] 05-02-2024 Instructions Formatting of th is note might be different from the original. Your surgery/procedure is scheduled at [facility] on 05/09/2024 at 10:30 am Arrival Time 8:30 am [facility] Address: [address] [place] [address], [address] [place] [address] in the Emergency Center Parking lot. Report to the front end alignment specialist in the Emergency/Surgery Registration lobby of the hospital. Notify your SURGEON if you develop any illness such as a cold, cough, fever, sore throat, vomiting or are hospitalized between now and your surgery. Please call Pre-Admission Clinic at [phone] if you have any questions prior to surgery. For questions the morning of surgery, call the Pre-op Department at [phone]. Medication Instructions (Do not stop your medications [...] would like to schedule therapy at a [facility] facility, please call [phone] ([phone]). Do not use lotions, creams, powders, perfume, make up, cologne or after-shaves day of surgery. Remove ALL jewelry including wedding rings, body piercings, hair extensions that contain metal, nail eritrean, make-up, and contact lens. You may brush your teeth the morning of surgery, but do not swallow the water. Wear your dentures and partial plates to the hospital (no adhesive). Shower the night the before. If applicable, use the CHG (chlorhexidine gluconate) soap or wipes. Please be advised, [facility] has transitioned to a cashless payment [...] RIGHTS AND RESPONSIBILITIES As a patient at [facility], you have the right to: Receive medical care and be informed of who is taking care of you Be treated with dignity and respect Have a family member/veterans service representative of choice and your physician notified of your admission Receive information and actively participate in decisions about your care and treatment Refuse care, treatment and services Decide who may provide your support and speak for you Access buddhist and spiritual services Participate in ethical issues [...] of hospital charges and payment methods Patient/patient veterans service representative responsibilities are to: Provide information about health status to facilitate care, treatment and services Follow the treatment, plan, keep appointments and speak up when you do not understand the plan Respect the rights of other patients and healthcare personnel Follow organizational rules and regulations that support quality care and a safe environment Fulfill financial obligations as promptly as possible [facility] 05-02-2024 Miscellaneous Notes Your surgery/procedure is scheduled at [facility] on 05/09/2024 at 10:30 am Arrival Time 8:30 am [facility] Address: [address] [place] [address], [facility] Park in the Emergency Center Parking lot. Report to the front end alignment specialist in the Emergency/Surgery Registration lobby of the hospital. Notify your SURGEON if you develop any illness such as a cold, cough, fever, sore throat, vomiting or are hospitalized between now and your surgery. Please call Pre-Admission Clinic at [phone] if you have any questions prior to surgery. For questions the morning of surgery, call the Pre-op Department at [phone]. Medication Instructions (Do not stop your medications [...] would like to schedule therapy at a [facility] facility, please call [phone] ([phone]). Do not use lotions, creams, powders, perfume, make up, cologne or after-shaves day of surgery. Remove ALL jewelry including wedding rings, body piercings, hair extensions that contain metal, nail eritrean, make-up, and contact lens. You may brush your teeth the morning of surgery, but do not swallow the water. Wear your dentures and partial plates to the hospital (no adhesive). Shower the night the before. If applicable, use the CHG (chlorhexidine gluconate) soap or wipes. Please be advised, [facility] has transitioned to a cashless payment [...] RIGHTS AND RESPONSIBILITIES As a patient at [facility], you have the right to: Receive medical care and be informed of who is taking care of you Be treated with dignity and respect Have a family member/veterans service representative of choice and your physician notified of your admission Receive information and actively participate in decisions about your care and treatment Refuse care, treatment and services Decide who may provide your support and speak for you Access buddhist and spiritual services Participate in ethical issues [...] of hospital charges and payment methods Patient/patient veterans service representative responsibilities are to: Provide information about [...] promptly as possible documented in this encounter [facility] 04-19-2024 Miscellaneous Notes Surgery Scheduling Request 04/19/24 Patient: Stacey Sahu : 1975 Surgical Procedure(s): DISE Anesthesia: MAC Surgery Time: 30 min Facility Preference: No preference When should patient follow up after surgery? 1-2 weeks Left message to schedule surgery documented in this encounter [facility] 04-19-2024 Telephone encounter Note Surgery Scheduling Request 04/19/24 Patient: Stacey Sahu : 1975 Surgical Procedure(s): DISE Anesthesia: MAC Surgery Time: 30 min Facility Preference: No preference When should patient follow up after surgery? 1-[address] [facility]: 04-19-[facility]24 Telephone encounter Note Left [facility] schedule [facility] 04-19-2024 History of Presen t illness Narrative Images from the original note were not included. [facility] [address] [place] [address] SUBJECTIVE: Patient ID (1975): Stacey Sahu is [...] History: Diagnosis Date Anxiety Arthritis Bipolar disorder ([facility]) Chronic pain disorder Crohn's colitis ([facility]) Depression GERD (gastroesophageal reflux disease) H/O methicillin resistant Staphylococcus aureus infection Hyperlipidemia Joint pain Obesity Pleurisy Pulmonary hypertension ([facility]) Pulmonary hypertension ([facility]) Sleep apnea cpap Past Surgical History: Procedure Laterality Date COLON SURGERY part of bowel removed d/t crohns dx COLONOSCOPY HYSTERECTOMY 2017 INJECTION BURSA LARGE JOINT Right Hip Right 09/01/2023 Performed by Pj Gannon MD at [facility] INJECTION SPINE TRANSFORAMINAL Right L 5,1 Nroot Right 05/26/2023 Performed by Pj Gannon MD at [facility] LYMPH NODE BIOPSY RELEASE DEQUERVAINS CONTRACTURE Right 10/17/2018 Performed by Dereck Bagley DO at [facility] THYROIDECTOMY, PARTIAL TONSILLECTOMY TUBAL LIGATION Family [...] Resource Strain: Patient Declined (06/14/2023) Received from [facility] Overall Financial Resource Strain (CARDIA) Difficulty of Paying Living Expenses: Patient declined Food Insecurity: No Food Insecurity (09/12/2023) Hunger Screening Food Insecurity - Worry: Never True Food Insecurity - Inability: Never True Transportation Needs: No Transportation Needs (06/14/2023) Received from [facility] PRAPARE - Transportation Lack of Transportation (Medical): No Lack of Transportation (Non-Medical): No Physical Activity: Unknown (06/14/2023) Received from [facility] Exercise Vital Sign Days of Exercise per Week: 2 days Minutes of Exercise per Session: Patient declined Stress: Patient Declined (06/14/2023) Received from [facility] [employer] Occupational Health - Occupational Stress Questionnaire Feeling of Stress : Patient declined Social Connections: Unknown (06/14/2023) Received from [facility] Social Connection and Isolation Panel [NHANES] Frequency of Communication with Friends and Family: Patient declined Frequency of Social Gatherings with Friends and Family: Patient declined Attends Mormonism Services: Patient declined Active Member of Clubs or Organizations: Patient declined Attends Club or Organization Meetings: Patient declined Marital Status: Interpersonal Safety: Unknown (08/17/2023) Received from [facility] [place] Safety & Environment Fear of Current or Ex-Partner: Not on file Emotionally Abused: Not on file Physically Abused: Not on file Sexually Abused: Not on file Physically or Sexually Abused: Not on file Housing Instability: Unknown (06/14/2023) Received from [facility] Housing Stability Vital Sign Unable to Pay [...] (NIRMALA), including the Inspire hypoglossal nerve stimulator (https://www.inspiresleep.[employer]) , tonsillectomy with uvulopalatopharyngoplasty, and hyoid advancement surgery using the Airlift system for NIRMALA (SwiftKey- https://www.medidametrics.[employer] ). Stacey Sahu was counseled about the [...] this chart were generated using voice recognition rimidi dictation software. Although every effort was made to ensure the accuracy of this automated sap manager, some errors in sap manager may have occurred. Varinder Minniear 04/19/24 0747 Varinder Minniear 04/19/24 0909 Varinder Minniear 04/19/24 0910 Varinder Minniear 04/19/24 0917 documented in this encounter [facility] [employer] 04-19-2024 Instructions Jeff Rossi MD - 04/19/2024 [...] test result within 7 days, please call [phone] to leave a request for your results. [...] Ultrasound, MRI or PET scan, please call [facility] Scheduling at [phone]. If you need to be scheduled for surgery, please call Kashmir Florian Surgery Coordinator at [phone], or [place] at [phone] or our main number [phone] if you have not received a return [...] (and medications that contain aspirin): Many non-prescription (szsd-obb-nxakmuk or OTC) medications contain aspirin. If you are unsure whether a medication you take has aspirin, please ask your pharmacist or your surgeon's office. You must ask your surgical team if they want you to continue taking, or stop taking aspirin before your procedure. Medications containing aspirin that should be stopped 7 days before surgery: Saritha-Puposky Anacin Aspirin Fiorinal Ascriptin Pamela Bufferin Lortab [...] L-carnosine Licorice Kava kava Milk thistle Multivitamin Edison-3 Resveratrol Skullcap Jenny's wort Vitamin E Adipex (phentermine) Jacob (orlistat) Hydroxycut Garcinia Cambogia Raspberry Ketones Jmphpiqr-B-11 should be stopped 14 days before surgery You will receive specific instructions regarding your insulin and anti-coagulant/anti-platelet medications (if applicable). -- documented in this encounter [facility] 04-16-2024 Note HNO ID: [id number] Author: LOIS MCKEON MD Service: ? Author [...] Assessment right hip arthritis. Lois Mckeon MD [facility] 04-16-2024 History of Presen t illness Narrative [...] Lois Mckeon MD documented in this encounter [facility] 04-10-2024 History of Presen t illness [...] wearing PAP, did see a specialist in [place] for eval for inspire, and is going [...] right Allergic rhinitis Anxiety 07/25/2023 Bipolar disorder ([facility]) Chest pain 02/09/2012 Chronic GERD Chronic rhinitis 2023 Constipation COVID-19 01/2022 Crohn's disease ([facility]) De Quervain's tenosynovitis, right Dyspnea on exertion Edema of extremities Elevated serum glucose Enlarged thyroid ([facility]) Flank pain 11/08/2022 Gross hematuria 11/08/2022 History of nausea Hot flashes Hyperlipidemia ([facility]) 09/11/2023 Lumbar back pain with radiculopathy affecting right lower extremity Multiple thyroid nodules ([facility]) Nocturia 01/14/2023 Obese 11/08/2022 Obesity, morbid ([facility]) NIRMALA (obstructive sleep apnea) Other acute sinusitis 06/07/2023 Other hyperlipidemia ([facility]) 12/14/2020 Pain of right upper extremity Pelvic [...] Addressed This Visit PAH (pulmonary artery hypertension) ([facility]) Saw cardiology in the past, was on letaris, no longer taking it or fu with cardiology Non compliant with PAP, looking into inspire No chest pain/pressure/dyspnea Chronic rhinitis Relevant Medications cetirizine (ZyrTEC) 10 MG tablet Anxiety Prn buspar Bipolar disorder, unspecified ([facility]) - Primary Will increase abilify to 15mg Fu in 6 weeks Relevant Medications ARIPiprazole (Abilify) 15 MG tablet Body mass index (BMI) 38.0-38.9, adult Morbid (severe) obesity due to excess calories ([facility]) Neuritis of left median nerve resolved Neuritis of right median nerve resolved Needs flu shot Pt declined Other Visit Diagnoses Gastroesophageal reflux disease, unspecified whether esophagitis present Relevant Medications omeprazole (PriLOSEC) [address] capsule documented in this encounter [facility] 03-19-2024 Note HNO ID: [id number] Author: LOIS MCKEON MD Service: ? Author Type: Physician Type: Progress Notes Filed: 03/19/2024 10:34 Note Text: She is here for chronic right hip and groin pain. Has been injected multiple times and done therapy. Takes medication. Has progressed to the point where she has pain that is affecting her quality of life. 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 Pain [...] the scan is complete. Lois Mckeon MD [facility] 03-19-2024 History of Presen t illness Narrative She is here for chronic right hip and groin pain. Has been injected multiple times and done therapy. Takes medication. Has progressed to the point where she has pain that is affecting her quality of life. 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 Pain [...] Lois Mckeon MD documented in this encounter [facility] 03-19-2024 Instructions Clarissa Zacarias RN - 03/19/2024 10:[address] Mckeon has ordered a cream that will be delivered to your home. The company, [employer], will call or text you from a [phone] phone number. Please reply or answer the call to start the process. If you do not hear from them within 48 hours, please call . documented in this encounter [facility] 03-19-2024 History of Presen t illness [...] PATIENT PRESENTS WITH AN IMPLANTABLE OR ATTACHED ENTRY LEVEL TRUCK DRIVER: No RADIOLOGY DEPARTMENT: General X-ray: Exam(s) Completed: Pelvis X-Ray: Pelvis with Hip Right PERIPHERAL IV DATA: Not applicable SIGNED BY: MARK Atwood) March 19, 2024 9:04 AM documented in this encounter [facility] 03-19-2024 Note HNO ID: [id number] Author: PAULETTE COREA RT(Javy) Service: ? Author [...] PATIENT PRESENTS WITH AN IMPLANTABLE OR ATTACHED ENTRY LEVEL TRUCK DRIVER: No RADIOLOGY DEPARTMENT: General X-ray: Exam(s) Completed: Pelvis X-Ray: Pelvis with Hip Right PERIPHERAL IV DATA: Not applicable SIGNED BY: Paulette Corea, RT(R) March 19, 2024 9:04 AM [facility] 03-18-2024 Telephone encounter Note Left message with pt to be sure to have report as well as images, but we may need an xray if do not have, he will look at xray and do assessment and determine if surgery will be an option. Clarissa Zacarias RN [facility] Work Phone: 03-18-2024 Miscellaneous Notes Left [...] at her appt on 03/19 Callback number: [phone] documented in this encounter [facility] 03-18-2024 Telephone encounter Note Name of Caller: stacey Relationship to patient: patient Last visit in this department: Visit date not found Reason for Call: Other : has questions about what to expect at her appt on 03/19 Callback number: [phone] [facility] 03-06-2024 Note SLEEP CLINIC INITIAL EVALUATION Date of Evaluation: 03/06/24 Referring Physician: Dr. Yumiko Tapia Chief Complaints: NIRMALA and intolerance to CPAP History of Presenting Illness: Stacey Sahu is a 48 y.o. woman presenting to the sleep clinic for the first time. She is referred to us by her seal mixing operator for evaluation for Inspire??? therapy. She [...] went to see Dr. Yumiko Tapia at [place] earlier this year. She states that the [...] Arteaga et al Anesthesiology 2008 and BJA 2012 [place] Sleepiness Scale: How likely are you to [...] of dozing === (more content not included)... [facility] 03-06-2024 Note Currently resolved [facility] 03-06-2024 Note Currently stable and controlled and she is going for pulmonary appt today [facility] 03-06-2024 Note Lipid abnormalities are still elevated with Chol and LDL not within goal. D/w pt will increase lipitor to 80 mg daily and pt to call office for any myalgias or concerns, repeat labs in 2-3 months- LFT and Lipid levels. [facility] 03-06-2024 Note Pt is here for a six month follow up. Pt denies sob, chest pains, palpatations Review of Systems Cardiovascular: Chest pain: discomfort , intermittent. Palpitations: not as bad . All other systems reviewed and are negative. [facility] 03-06-2024 Note [facility]TP CARDIOLOGY PROGR ESS NOTE [...] she has appointment with pulmonary today in [place]- r/t NIRMALA untreated. 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 Pt states it has been going on [...] MG DR capsule documented in this encounter [facility] 11-28-2023 Hospital Discharg e instructions Patient Education [...] include: ?8 oz (237 mL) of milk, mpcvojp-qknfrewetwpl-abrkg milk, and calcium-fortifiedfruit juice. Calcium-fortified means that [...] ?Spinach (cooked), rhubarb, beets, sweet potatoes, and Norwegian chard. ?Peanuts. ?Potato chips, bolivian fries, and baked potatoes with skin on. ?Nuts and nut products. ?Chocolate. If you regularly take a diuretic medicine, make sure to eat at least 1 or 2 servings of fruits or vegetables that are high in potassium each day. These include: ?Avocado. ?Banana. ?Plaquemines, prune, carrot, or tomato juice. ?Baked potato. [...] magnesium, fish oil, or vitamin B6. Take abrj-jqy-toyjpjp and prescription medicines only as told by [...] Casseroles. Pizza. Lasagna. Frozen meals. Potato chips. Malian fries. The items listed above may not [...] provider. Document Revised: 09/22/2022 Document Reviewed: 09/22/2022 [employer] Patient Education 2022 [employer]. Follow Up Care 05/29/2023 15:22:48 With:ANGELICA SHAIKH, LESLIE Medina, URL Address: [address] [place] [address] When: Unknown [facility] [employer] 09-20-2023 Miscellaneous Notes [facility] Ortho called to say that they are out of network for Stacey's insurance. A referral form will be sent once she selects an orthopedic in-network documented in this encounter [facility] 09-20-2023 Telephone encounter Note [facility] called to say that they are out of network for Stacey's insurance. A referral form will be sent once she selects an orthopedic in-network [facility] 09-12-2023 History of Presen t illness Narrative [facility] [address] [place] [address] Patient: Stacey Sahu Sex: female : 1975 Age: 48 y.o. PCP: ESSIE RYAN APRN-NIURKA 09/12/2023 Stacey Sahu is here for a(n) [...] patches min: NSAIDS, ice/heat, accupuncture, inj at [place] pain clinic Mod relief: Narcotics Sign: Steroid inj by Ortho) for the symptoms. The treatment provided moderate relief. The effect of pain on patient's ADLS: Moderate Impairment. Past Medical History: Diagnosis Date Arthritis Bipolar disorder ([facility]) Chronic pain disorder Crohn's colitis ([facility]) Depression GERD (gastroesophageal reflux disease) H/O methicillin resistant Staphylococcus aureus infection Hyperlipidemia Joint pain Pleurisy Pulmonary hypertension ([facility]) Pulmonary hypertension ([facility]) Sleep apnea cpap Past Surgical History: Procedure Laterality Date COLON SURGERY part of bowel removed d/t crohns dx HYSTERECTOMY 2017 INJECTION BURSA LARGE JOINT Right Hip Right 09/01/2023 Performed by Pj Gannon MD at [facility] INJECTION SPINE TRANSFORAMINAL Right L 5,1 Nroot Right 05/26/2023 Performed by Pj Gannon MD at [facility] RELEASE DEQUERVAINS CONTRACTURE Right 10/17/2018 Performed by Dereck Bagley DO at [facility] THYROIDECTOMY, PARTIAL Allergies Allergen Reactions Penicillins [...] while taking medications prescribed by this clinic. O Orthopedic Referral - Right Hip pain It [...] 09/12/23 1317 documented in this encounter [facility] 08-21-2023 History of Presen t illness Narrative [facility] [address] [place] [address] Patient: Stacey Sahu Sex: female : 1975 Age: 48 y.o. PCP: ESSIE RYAN, DIALYSIS RN-STRUCTURAL METAL WORKER 08/21/2023 Stacey Sahu is here for a(n) [...] patches min: NSAIDS, ice/heat, accupuncture, inj at [place] pain clinic Mod relief: Narcotics Sign: Steroid inj by Ortho) for the symptoms. The treatment provided moderate relief. The effect of pain on patient's ADLS: Moderate Impairment. Past Medical History: Diagnosis Date Arthritis Bipolar disorder ([facility]) Chronic pain disorder Crohn's colitis ([facility]) Depression GERD (gastroesophageal reflux disease) H/O methicillin resistant Staphylococcus aureus infection Hyperlipidemia Joint pain Pleurisy Pulmonary hypertension ([facility]) Pulmonary hypertension ([facility]) Sleep apnea cpap Past Surgical History: Procedure Laterality Date COLON SURGERY part of bowel removed d/t crohns dx HYSTERECTOMY 2017 INJECTION SPINE TRANSFORAMINAL Right L 5,1 Nroot Right 05/26/2023 Performed by Pj Gannon MD at [facility] RELEASE DEQUERVAINS CONTRACTURE Right 10/17/2018 Performed by Dereck Bagley DO at [facility] THYROIDECTOMY, PARTIAL Allergies Allergen Reactions Penicillins [...] [place] 08/21/23 0908 documented in this encounter [facility] 08-21-2023 Instructions Essie Dutton CNA - 08/21/2023 [...] back to normal. documented in this encounter [employer] 07-11-2023 Evaluation note Encounter Date Diagnosis Assessment [...] treatment plan. Patient left in stable condition [employer] Other 01-03-2024 History of Present illness Narrative* Evans Anderson PA-C - 06/28/2023 10:45 AM EST [facility] [address] [place] [address] Patient: Stacey Sahu Sex: female : 1975 Age: 48 y.o. PCP: ESSIE RYAN, LAY-STRUCTURAL METAL WORKER 06/28/2023 Stacey Sahu is here for a(n) [...] min: NSAIDS, ice /heat, accupuncture, inj at [place] [facility] Mod relief: Narcotics Sign: Steroid inj by Ortho) for the symptoms. The treatment provided moderate relief. The effect of pain on patient's ADLS: Minimal Impairment. Past Medical History: Diagnosis Date Arthritis Bipolar disorder ([facility]) Chronic pain disorder Crohn's colitis ([facility]) Depression GERD (gastroesophageal reflux disease) H/O methicillin resistant Staphylococcus aureus infection Hyperlipidemia Joint pain Pleurisy Pulmonary hypertension ([facility]) Pulmonary hypertension ([facility]) Sleep apnea cpap Past Surgical History: Procedure Laterality Date COLON SURGERY part of bowel removed d/t crohns dx HYSTERECTOMY 2017 INJECTION SPINE TRANSFORAMINAL Right L 5,1 Nroot Right 05/26/2023 Performed by Pj Gannon MD at [facility] RELEASE DEQUERVAINS CONTRACTURE Right 10/17/2018 Performed by Dereck Bagley DO at [facility] THYROIDECTOMY, PARTIAL Allergies Allergen Reactions Penicillins [...] Anderson PA-C 06/28/23 1229 [facility] Hospital Discharge instructions Patient Education 05/29/2023 15:17:27 Kidney Stones, Taoy-rb-Vdjw Kidney Stones Kidney stones are rock-like masses [...] Follow these instructions at home: Medicines Take iivz-xsj-jcdtkdg and prescription medicines only as told by [...] provider. Document Revised: 02/14/2022 Document Reviewed: 02/14/2022 [employer] Patient Education 2022 [employer]. Follow Up Care 11/08/2022 13:29:10 With:JOSE FELIX, Lynn Palafox, URL Address: [facility] [address], [place] [phone] When: Unknown Comments:4 mos w/ metabolic w/u [facility] [employer] 02-09-2023 NoteCONSULTATION CONSULTATION DATE: 08/04/2022 HISTORY [...] medications in three months, unless otherwise indicated.[facility] [id number] NotePROCEDURE: XR HIP RT 2 3V WO [...] authenticated by: PREET RODRIGEZ Date: 2022-07-07 15:33[facility] [id number] NoteCONSULTATION CONSULTATION DATE: 07/07/2022 HISTORY OF PRESENT [...] procedure, and she agrees to move forward.[facility] [id number] NoteCONSULTATION CONSULTATION DATE: 06/09/2022 HISTORY OF PRESENT [...] will re-evaluate with application of the diclofenac.[facility] 04-26-2022 Hospital Discharge instructions Patient [...] 06/12/2006 Document Revised: 03/01/2019 Document Reviewed: 05/12/2017 [employer] Patient Education 2020 [employer]. 04/26/2022 12:17:47 Hematuria, Adult Hematuria, Adult Hematuria [...] Follow these instructions at home: Medicines Take nugy-yud-sznpxkv and prescription medicines only as told by [...] or the blood stops without treatment. Take vhgj-njl-yjlabvg and prescription medicines only as told by your health care provider. Drink enough fluid to keep your urine clear or pale yellow. This information is not intended to replace advice given to you by your health care provider. Make sure you discuss any questions you have with your health care provider. Document Released: 06/12/2006 Document Revised: 11/06/2019 Document Reviewed: 07/15/2017 [employer]uff Patient Education 2020 [employer]. Follow Up Care 04/22/2022 08:39:58 With:JOSE FELIX, Lynn Palafox, URL Address: [address] [place] [address] [place] [address] [phone] When:Within 6 Month(s) Comments:6 mo fu with KUB [facility] 10-04-2022 NoteCONSULTATION PROCEDURE DATE: 03/29/2022 PREOPERATIVE DIAGNOSIS: [...] Will be followed up in the office.[facility] [id number] NoteCONSULTATION CONSULTATION DATE: 03/22/2022 CHIEF COMPLAINT: Right [...] up subsequent to that. CC: Essie Ryan, [facility]09-13-2022 Hospital Discharge instructions Patient Education 03/08/2022 [...] 100 degrees. Follow Up Care 03/01/2022 08:53:56 With:Lynn GARCIA Address: [facility] [address] [place] [address]- Business (1) When: Unknown Comments:Office will call to schedule follow up [facility]08-29-20[facility] History of Present illness Narrative* Shiraz Roy, DO - 02/21/2022 12:46 PM EDT Images from the original note were not included. [facility] - Medical [...] gel - no benefit Therapies PT at [facility] in [place] in June 2021 - 2 times per week for 1 month, exercises, TENS, ice - no relief Ice/heat Prior spine/MSK interventions: -12/31/21 Dr. Page: R GTB CSI - minimal relief for 1 day. 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 Subjective Patient ID: Stacey [...] x 4 Crohn's disease without complication (HCC) [id number] Pulmonary Htn (Hcc) Obese Nirmala (Obstructive Sleep [...] (primary encounter diagnosis) Plan: CONSULT TO [facility] (M51.27) Lumbago-sciatica due to [...] 2022 TIME: 3:46 PM [facility] History of Present illness Narrative* Jorge Luis Page DO - 12/31/2021 12:54 PM EDT Associated Order(s): Large Joint Arthro/Inj: R greater trochanteric bursa Post-Procedure Diagnose(s): Trochanteric bursitis of right hip SERVICE DATE: December 31, 2021 PCP: Essie Ryan CNP, STRUCTURAL METAL WORKER Patient was self-referred. Subjective Patient ID: Stacey [...] x 4 Crohn's disease without complication (HCC) [id number] Pulmonary Htn (Hcc) Obese Nirmala (Obstructive Sleep [...] right hip. She has a negative February Lynn's. No other tenderness is noted about her [...] trochanteric bursa Informed Consent Consent Obtained: Verbal Singer Protocol A moment to CARE was completed. [...] 2021 TIME: 1:05 PM [facility] Evaluation note* Encounter Date Diagnosis Assessment [...] refer her to Dr. Christian with the [facility]. [employer] Other 05-25-2022 Evaluation note* Encounter Date Diagnosis [...] I will see her with those results. [employer] Other 06-21-2021 History of Past illness Narrative* Problem Noted Date Resolved Date Generalized abdominal pain 12/14/202012/16 documented as of this encounter (statuses as of 12/31/2021) [facility] History of Past illness Narrative* Problem Noted Date Resolved Date Generalized abdominal pain 12/14/202012/16 documented as of this encounter (statuses as of 01/17/2022) [facility] History of Past illness Narrative* Problem Noted Date Resolved Date Generalized abdominal pain 12/14/202012/16 documented as of this encounter (statuses as of 03/13/2022) [facility] No data available for this section [facility] App[facility]ments Appointment Date:10/24/2022 11:30:00 AM Scheduled Provider:[facility]ynn [facility] Office Visit [facility] [place] Evaluation + Plan note Future Appointments Appointment Date:05/29/2023 02:30:00 PM Scheduled Provider:Lynn GARCIA MD [facility] Office Visit Future Scheduled Tests Laboratory* Calprotectin, Fecal 11/24/22 * CBC w/ Auto Diff 11/24/22 * Comprehensive Metabolic Panel 11/24/22 * C-Reactive Protein 11/24/22 Radiology* CT Abdomen/Pelvis w/contrast (enterography) 11/24/22 [facility] Evaluation + Plan note Future Appointments Appointment Date:05/29/2023 02:30:00 PM Scheduled Provider:Lynn GARCIA MD Location:[facility] Appointment Type:URO Office Visit Future Scheduled Tests Laboratory* Calprotectin, Fecal 11/24/22 * CBC w/ Auto Diff 11/24/22 * Comprehensive Metabolic Panel 11/24/22 * C-Reactive Protein 11/24/22 [facility] Future Appointments Appointment Date:02/02/2023 01:00:00 PM Scheduled Provider:Ignacia KHAN MD Location:[facility] Appointment Type:[facility] Follow Up Appointment Date:05/29/2023 02:30:00 PM Scheduled Provider:Lynn GARCIA MD Location:[facility] Appointment Type:URO Office Visit Future Scheduled Tests Laboratory* Calprotectin, Fecal 11/24/22 [facility] Future Appointments Appointment Date:05/29/2023 02:30:00 PM Scheduled Provider:Lynn GARCIA MD Location:[facility] Appointment Type:URO Office Visit Diagnostic Tests Pending * Calprotectin, Fecal 02/02/23 [facility] Future Appointments Appointment Date:10/02/2023 03:00:00 PM Scheduled Provider:Lynn GARCIA MD Location:[facility] Appointment Type:URO Office Visit [facility] evaluation note* Diagnosis Trochanteric bursitis of right hip- Primary Enthesopathy of hip region [facility] [employer] 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 [facility] Diagnosis Tendinopathy of right gluteal region- Primary Trochanteric bursitis of right hip Enthesopathy of hip region Chronic bilateral low back pain without sciatica Lumbar spondylosis Lumbosacral spondylosis without myelopathy [facility]* Diagnosis Exhausted vascular access Other specified [...] region and thigh documented [facility] this [facility]* Diagnosis Exhausted vascular access Other specified [...] region and thigh documented in this [facility]* Diagnosis Acute otitis media, unspecified otitis [...] of right median nerve Bipolar disorder, unspecified ([facility]) Bipolar disorder, unspecified Bipolar disorder, unspecified ([facility])- Primary Bipolar disorder, unspecified Neuritis of right median nerve Neuritis of left median nerve Morbid (severe) obesity due to excess calories ([facility]) Body mass index (BMI) 38.0-38.9, adult Anxiety Anxiety state, unspecified PAH (pulmonary artery hypertension) ([facility]) Other chronic pulmonary heart diseases Chronic rhinitis Gastroesophageal reflux disease, unspecified whether esophagitis present Needs flu shot Need for prophylactic vaccination and inoculation against influenza [facility] Exhausted vascular access Other specified [...] by other means [facility] Diagnosis Exhausted vascular access Other specified [...] region and thigh [facility]* Diagnosis Acute otitis media, unspecified otitis [...] soft tissues of limb Bipolar disorder, unspecified ([facility])- Primary Bipolar disorder, unspecified Morbid (severe) obesity due to excess calories ([facility]) Gastro-esophageal reflux disease without esophagitis Body mass index (BMI) 38.0-38.9, adult Pulmonary hypertension, unspecified ([facility]) Crohn's disease of both small and large intestine without complications ([facility]) Chronic right hip pain Bipolar disorder, current episode mixed, moderate ([facility])- Primary Chronic rhinitis Gastroesophageal reflux disease, unspecified whether esophagitis present BMI 38.0-38.9,adult Neuritis of left median nerve Neuritis of right median nerve Bipolar disorder, unspecified ([facility]) Bipolar disorder, unspecified Bipolar disorder, unspecified ([facility])- Primary Bipolar disorder, unspecified Neuritis of right median nerve Neuritis of left median nerve Morbid (severe) obesity due to excess calories ([facility]) Body mass index (BMI) 38.0-38.9, adult Anxiety Anxiety state, unspecified PAH (pulmonary artery hypertension) ([facility]) Other chronic pulmonary heart diseases Chronic rhinitis Gastroesophageal reflux disease, unspecified whether esophagitis present Needs flu shot Need for prophylactic vaccination and inoculation against influenza Bipolar 1 disorder ([facility])- Primary NIRMALA (obstructive sleep apnea) Obstructive sleep apnea (adult) (pediatric) PAH (pulmonary artery hypertension) ([facility]) Other chronic pulmonary heart diseases Chronic right hip pain Morbid (severe) obesity due to excess calories ([facility]) Anxiety Anxiety state, unspecified Chronic rhinitis Body [...] non-compliant with CPAP [facility]* Diagnosis Bipolar disorder, current episode mixed, moderate ([facility])- Primary Chronic rhinitis Gastroesophageal reflux disease, unspecified whether esophagitis present BMI 38.0-38.9,adult Neuritis of left median nerve Neuritis of right median nerve Bipolar disorder, unspecified ([facility]) Bipolar disorder, unspecified documented in this encounter [facility]* Diagnosis Bipolar disorder, current episode mixed, moderate ([facility])- Primary Chronic rhinitis Gastroesophageal reflux disease, unspecified whether esophagitis present BMI 38.0-38.9,adult Neuritis of left median nerve Neuritis of right median nerve Bipolar disorder, unspecified ([facility]) Bipolar disorder, unspecified documented in this encounter [facility]* Diagnosis Exhausted vascular access Other [...] right hip- Primary [facility]* Diagnosis Exhausted vascular access Other specified [...] by other means [facility]* Diagnosis Lumbar radiculopathy- Primary Thoracic or lumbosacral neuritis or radiculitis, unspecified [facility] Diagnosis Chronic right hip pain [facility]* Diagnosis Chronic right hip pain- Primary Lumbar neuritis Chronic right hip pain- Primary Chronic right hip pain [facility]* Diagnosis Chronic right hip pain- Primary [facility]* Diagnosis NIRMALA (obstructive sleep apnea)- Primary Obstructive sleep apnea (adult) (pediatric) Obstructive sleep apnea- Primary Obstructive sleep apnea (adult) (pediatric) Obstructive sleep apnea Obstructive sleep apnea (adult) (pediatric) documented [facility]* Diagnosis NIRMALA (obstructive sleep apnea)- Primary Obstructive sleep apnea (adult) (pediatric) Obstructive sleep apnea Obstructive sleep apnea (adult) (pediatric) Obstructive sleep apnea- Primary Obstructive sleep apnea (adult) (pediatric) Obstructive sleep apnea Obstructive sleep apnea (adult) (pediatric) NIRMALA (obstructive sleep apnea) Obstructive sleep apnea (adult) (pediatric) documented [facility] encounter [facility]* Diagnosis Acute otitis media, unspecified [...] (CMS/HCC) Bipolar disorder, unspecified Bipolar disorder, unspecified ([facility]/HCC)- Primary Bipolar disorder, unspecified Neuritis of right median nerve Neuritis of left median nerve Morbid (severe) obesity due to excess calories ([facility]) Body mass index (BMI) 38.0-38.9, adult Anxiety Anxiety state, unspecified PAH (pulmonary artery hypertension) ([facility]) Other chronic pulmonary heart diseases Chronic rhinitis Gastroesophageal reflux disease, unspecified whether esophagitis present Needs flu shot Need for prophylactic vaccination and inoculation against influenza Bipolar 1 disorder ([facility])- Primary NIRMALA (obstructive sleep apnea) Obstructive sleep apnea (adult) (pediatric) PAH (pulmonary artery hypertension) ([facility]) Other chronic pulmonary heart diseases Chronic right hip pain Morbid (severe) obesity due to excess calories ([facility]) Anxiety Anxiety state, unspecified Chronic rhinitis Body mass index (BMI) 38.0-38.9, adult Anxiety- Primary Anxiety state, unspecified Morbid (severe) obesity due to excess calories ([facility]) Mixed hyperlipidemia ([facility]) Mixed hyperlipidemia Body mass index (BMI) 38.0-38.9, adult Bipolar disorder, unspecified ([facility]) Bipolar disorder, unspecified Pulmonary hypertension, unspecified ([facility]) Crohn's disease of both small and large intestine without complications ([facility]) NIRMALA (obstructive sleep apnea) Obstructive sleep apnea (adult) (pediatric) PAH (pulmonary artery hypertension) ([facility]) Other chronic pulmonary heart diseases Gastro-esophageal reflux disease without esophagitis S/P total right hip arthroplasty Encounter for screening mammogram for malignant neoplasm of breast Gastroesophageal reflux disease, unspecified whether esophagitis present Dizziness and giddiness documented in this encounter [facility]* Diagnosis Obstructive sleep apnea- Primary Obstructive sleep apnea (adult) (pediatric) documented in this encounter [facility] SystemEvaluation note* Diagnosis Acute otitis media, unspecified [...] soft tissues of limb Bipolar disorder, unspecified ([facility]/HCC)- Primary Bipolar disorder, unspecified Morbid (severe) obesity due to excess calories ([facility]) Gastro-esophageal reflux disease without esophagitis Body mass index (BMI) 38.0-38.9, adult Pulmonary hypertension, unspecified ([facility]) Crohn's disease of both small and large intestine without complications ([facility]) Chronic right hip pain Bipolar disorder, current episode mixed, moderate ([facility])- Primary Chronic rhinitis Gastroesophageal reflux disease, unspecified whether esophagitis present BMI 38.0-38.9,adult Neuritis of left median nerve Neuritis of right median nerve Bipolar disorder, unspecified ([facility]) Bipolar disorder, unspecified Bipolar disorder, unspecified ([facility])- Primary Bipolar disorder, unspecified Neuritis of right median nerve Neuritis of left median nerve Morbid (severe) obesity due to excess calories ([facility]) Body mass index (BMI) 38.0-38.9, adult Anxiety Anxiety state, unspecified PAH (pulmonary artery hypertension) ([facility]) Other chronic pulmonary heart diseases Chronic rhinitis Gastroesophageal reflux disease, unspecified whether esophagitis present Needs flu shot Need for prophylactic vaccination and inoculation against influenza Bipolar 1 disorder ([facility])- Primary NIRMALA (obstructive sleep apnea) Obstructive sleep apnea (adult) (pediatric) PAH (pulmonary artery hypertension) ([facility]) Other chronic pulmonary heart diseases Chronic right hip pain Morbid (severe) obesity due to excess calories ([facility]) Anxiety Anxiety state, unspecified Chronic rhinitis Body mass index (BMI) 38.0-38.9, adult Anxiety- Primary Anxiety state, unspecified Morbid (severe) obesity due to excess calories ([facility]) Mixed hyperlipidemia ([facility]) Mixed hyperlipidemia Body mass index (BMI) 38.0-38.9, adult Bipolar disorder, unspecified ([facility]) Bipolar disorder, unspecified Pulmonary hypertension, unspecified ([facility]) Crohn's disease of both small and large intestine without complications ([facility]) NIRMALA (obstructive sleep apnea) Obstructive sleep apnea (adult) (pediatric) PAH (pulmonary artery hypertension) ([facility]) Other chronic pulmonary heart diseases Gastro-esophageal reflux [...] region and thigh documented in this encounter [facility]* Diagnosis Acute otitis media, unspecified otitis [...] soft tissues of limb Bipolar disorder, unspecified (HCC)- Primary Bipolar disorder, unspecified Morbid (severe) obesity due to excess calories ([facility]-HCC) Gastro-esophageal reflux disease without esophagitis Body mass index (BMI) 38.0-38.9, adult Pulmonary hypertension, unspecified (HCC) Crohn's disease of both small and large intestine without complications (HCC) Chronic right hip pain Bipolar disorder, current episode mixed, moderate (HCC)- Primary Chronic rhinitis Gastroesophageal reflux disease, unspecified whether esophagitis present BMI 38.0-38.9,adult Neuritis of left median nerve Neuritis of right median nerve Bipolar disorder, unspecified (HCC) Bipolar disorder, unspecified Bipolar disorder, unspecified (HCC)- Primary Bipolar disorder, unspecified Neuritis of right median nerve Neuritis of left median nerve Morbid (severe) obesity due to excess calories (CMS-HCC) Body mass index (BMI) 38.0-38.9, adult Anxiety Anxiety state, unspecified PAH (pulmonary artery hypertension) (HCC) Other chronic pulmonary heart diseases Chronic rhinitis Gastroesophageal reflux disease, unspecified whether esophagitis present Needs flu shot Need for prophylactic vaccination and inoculation against influenza Bipolar 1 disorder (HCC)- Primary NIRMALA (obstructive sleep apnea) Obstructive sleep apnea (adult) (pediatric) PAH (pulmonary artery hypertension) (HCC) Other chronic pulmonary heart diseases Chronic right hip pain Morbid (severe) obesity due to excess calories ([facility]) Anxiety Anxiety state, unspecified Chronic rhinitis Body mass index (BMI) 38.0-38.9, adult Anxiety- Primary Anxiety state, unspecified Morbid (severe) obesity due to excess calories ([facility]) Mixed hyperlipidemia Mixed hyperlipidemia Body mass index (BMI) 38.0-38.9, adult Bipolar disorder, unspecified (HCC) Bipolar disorder, unspecified Pulmonary hypertension, unspecified (HCC) Crohn's disease of both small and large intestine without complications (HCC) NIRMALA (obstructive sleep apnea) Obstructive sleep apnea (adult) (pediatric) PAH (pulmonary artery hypertension) (HCC) Other chronic pulmonary heart diseases Gastro-esophageal reflux disease without esophagitis S/P total right hip arthroplasty Encounter for screening mammogram for malignant neoplasm of breast Gastroesophageal reflux disease, unspecified whether esophagitis present Dizziness and giddiness Dizziness and giddiness- Primary NIRMALA (obstructive sleep apnea) Obstructive sleep apnea (adult) (pediatric) Morbid (severe) obesity due to excess calories ([facility]) Bipolar disorder, unspecified (HCC) Bipolar disorder, unspecified Mixed hyperlipidemia Mixed hyperlipidemia Anxiety Anxiety state, unspecified Chronic right hip pain Gastroesophageal reflux disease, unspecified whether esophagitis present Left hip pain Pain in joint, pelvic region and thigh Chronic right hip pain- Primary NIRMALA (obstructive sleep apnea) Obstructive sleep apnea (adult) (pediatric) Dizziness and giddiness Primary hypertension Unspecified essential hypertension Morbid (severe) obesity due to excess calories ([facility]) Bipolar 1 disorder (HCC) Anxiety Anxiety state, unspecified Elevated glucose level PAH (pulmonary artery hypertension) (HCC) Other chronic pulmonary heart diseases Bipolar disorder, unspecified (HCC) Bipolar disorder, unspecified Mixed hyperlipidemia Mixed hyperlipidemia Gastroesophageal reflux disease, unspecified whether esophagitis present documented in this encounter [facility]* Diagnosis Acute otitis media, unspecified otitis [...] soft tissues of limb Bipolar disorder, unspecified (HCC)- Primary Bipolar disorder, unspecified Morbid (severe) obesity due to excess calories ([facility]) Gastro-esophageal reflux disease without esophagitis Body mass index (BMI) 38.0-38.9, adult Pulmonary hypertension, unspecified (HCC) Crohn's disease of both small and large intestine without complications (HCC) Chronic right hip pain Bipolar disorder, current episode mixed, moderate ([facility])- Primary Chronic rhinitis Gastroesophageal reflux disease, unspecified whether esophagitis present BMI 38.0-38.9,adult Neuritis of left median nerve Neuritis of right median nerve Bipolar disorder, unspecified (HCC) Bipolar disorder, unspecified Bipolar disorder, unspecified (HCC)- Primary Bipolar disorder, unspecified Neuritis of right median nerve Neuritis of left median nerve Morbid (severe) obesity due to excess calories ([facility]) Body mass index (BMI) 38.0-38.9, adult Anxiety Anxiety state, unspecified PAH (pulmonary artery hypertension) ([facility]) Other chronic pulmonary heart diseases Chronic rhinitis Gastroesophageal reflux disease, unspecified whether esophagitis present Needs flu shot Need for prophylactic vaccination and inoculation against influenza Bipolar 1 disorder ([facility])- Primary NIRMALA (obstructive sleep apnea) Obstructive sleep apnea (adult) (pediatric) PAH (pulmonary artery hypertension) ([facility]) Other chronic pulmonary heart diseases Chronic right hip pain Morbid (severe) obesity due to excess calories ([facility]) Anxiety Anxiety state, unspecified Chronic rhinitis Body mass index (BMI) 38.0-38.9, adult Anxiety- Primary Anxiety state, unspecified Morbid (severe) obesity due to excess calories ([facility]) Mixed hyperlipidemia Mixed hyperlipidemia Body mass index (BMI) 38.0-38.9, adult Bipolar disorder, unspecified (HCC) Bipolar disorder, unspecified Pulmonary hypertension, unspecified (HCC) Crohn's disease of both small and large intestine without complications ([facility]) NIRAMLA (obstructive sleep apnea) Obstructive sleep apnea (adult) (pediatric) PAH (pulmonary artery hypertension) ([facility]) Other chronic pulmonary heart diseases Gastro-esophageal reflux disease without esophagitis S/P total right hip arthroplasty Encounter for screening mammogram for malignant neoplasm of breast Gastroesophageal reflux disease, unspecified whether esophagitis present Dizziness and giddiness Dizziness and giddiness- Primary NIRMALA (obstructive sleep apnea) Obstructive sleep apnea (adult) (pediatric) Morbid (severe) obesity due to excess calories ([facility]) Bipolar disorder, unspecified ([facility]) Bipolar disorder, unspecified Mixed hyperlipidemia Mixed hyperlipidemia Anxiety Anxiety state, unspecified Chronic right hip pain Gastroesophageal reflux disease, unspecified whether esophagitis present Left hip pain Pain in joint, pelvic region and thigh Chronic right hip pain- Primary NIRMALA (obstructive sleep apnea) Obstructive sleep apnea (adult) (pediatric) Dizziness and giddiness Primary hypertension Unspecified essential hypertension Morbid (severe) obesity due to excess calories ([facility]-HCC) Bipolar 1 disorder (HCC) Anxiety Anxiety state, unspecified Elevated glucose level PAH (pulmonary artery hypertension) (HCC) Other chronic pulmonary heart diseases Bipolar disorder, unspecified (HCC) Bipolar disorder, unspecified Mixed hyperlipidemia Mixed hyperlipidemia Gastroesophageal reflux disease, unspecified whether esophagitis present Chronic right hip pain- Primary documented in [facility] encounter [facility]* Diagnosis Onset Date Resolution Status Admit Date Bipolar disorder acute December 11:14am BMI 45.0-49.9, adult acute January 15, 2025 11:14am Encounter for adjustment and management of other implanted nervous system d acute January 15, 2025 11:14am Obstructive sleep apnea acute J eduardo 2024 11:14am Pulmonary hypertension acute Ju ly 2024 11:14am [facility] Work Phone: Evaluation note* Diagnosis Acute otitis media, unspecified otitis [...] soft tissues of limb Bipolar disorder, unspecified (HCC)- Primary Bipolar disorder, unspecified Morbid (severe) obesity due to excess calories ([facility]-HCC) Gastro-esophageal reflux disease without esophagitis Body mass index (BMI) 38.0-38.9, adult Pulmonary hypertension, unspecified (HCC) Crohn's disease of both small and large intestine without complications (HCC) Chronic right hip pain Bipolar disorder, current episode mixed, moderate (HCC)- Primary Chronic rhinitis Gastroesophageal reflux disease, unspecified whether esophagitis present BMI 38.0-38.9,adult Neuritis of left median nerve Neuritis of right median nerve Bipolar disorder, unspecified (HCC) Bipolar disorder, unspecified Bipolar disorder, unspecified (HCC)- Primary Bipolar disorder, unspecified Neuritis of right median nerve Neuritis of left median nerve Morbid (severe) obesity due to excess calories ([facility]) Body mass index (BMI) 38.0-38.9, adult Anxiety Anxiety state, unspecified PAH (pulmonary artery hypertension) ([facility]) Other chronic pulmonary heart diseases Chronic rhinitis Gastroesophageal reflux disease, unspecified whether esophagitis present Needs flu shot Need for prophylactic vaccination and inoculation against influenza Bipolar 1 disorder ([facility])- Primary NIRMALA (obstructive sleep apnea) Obstructive sleep apnea (adult) (pediatric) PAH (pulmonary artery hypertension) ([facility]) Other chronic pulmonary heart diseases Chronic right hip pain Morbid (severe) obesity due to excess calories ([facility]) Anxiety Anxiety state, unspecified Chronic rhinitis Body mass index (BMI) 38.0-38.9, adult Anxiety- Primary Anxiety state, unspecified Morbid (severe) obesity due to excess calories ([facility]) Mixed hyperlipidemia Mixed hyperlipidemia Body mass index (BMI) 38.0-38.9, adult Bipolar disorder, unspecified ([facility]) Bipolar disorder, unspecified Pulmonary hypertension, unspecified ([facility]) Crohn's disease of both small and large intestine without complications ([facility]) NIRMALA (obstructive sleep apnea) Obstructive sleep apnea (adult) (pediatric) PAH (pulmonary artery hypertension) ([facility]) Other chronic pulmonary heart diseases Gastro-esophageal reflux disease without esophagitis S/P total right hip arthroplasty Encounter for screening mammogram for malignant neoplasm of breast Gastroesophageal reflux disease, unspecified whether esophagitis present Dizziness and giddiness Dizziness and giddiness- Primary NIRMALA (obstructive sleep apnea) Obstructive sleep apnea (adult) (pediatric) Morbid (severe) obesity due to excess calories ([facility]) Bipolar disorder, unspecified ([facility]) Bipolar disorder, unspecified Mixed hyperlipidemia Mixed hyperlipidemia Anxiety Anxiety state, unspecified Chronic right hip pain Gastroesophageal reflux disease, unspecified whether esophagitis present Left hip pain Pain in joint, pelvic region and thigh Chronic right hip pain- Primary NIRMALA (obstructive sleep apnea) Obstructive sleep apnea (adult) (pediatric) Dizziness and giddiness Primary hypertension Unspecified essential hypertension Morbid (severe) obesity due to excess calories ([facility]) Bipolar 1 disorder ([facility]) Anxiety Anxiety state, unspecified Elevated glucose level PAH (pulmonary artery hypertension) ([facility]) Other chronic pulmonary heart diseases Bipolar disorder, unspecified ([facility]) Bipolar disorder, unspecified Mixed hyperlipidemia Mixed hyperlipidemia Gastroesophageal reflux disease, unspecified whether esophagitis present Chronic right hip pain- Primary S/P total right hip arthroplasty- Primary Chronic right hip pain documented in [facility] encounter [facility] N[facility]ative - Reported* Type Description Date Medical History acid reflux Surgical History biopsy of intestines Surgical History hysterectomy [facility] Other Hospital Discharge instructions No data available for this section [facility] InstructionsNot on filedocumented in this encounter [facility] filedocumented in this [facility] filedocument[facility] in this encounter [facility] on filedocumented in this encounter [facility]Not on filedocumented in this encounter [facility] No data available for this section [facility] Diagnostic Procedure Only (Routine) - Closed Specialty Diagnoses / Procedures Referred By Wan gamboa Referred To Contact XR IMAGING Diagnoses Pain in right hip Procedures XR HIP GENERAL 3V PELV/AP/LAT RIGHT RADEX HIP UNILATERAL WITH PELVIS 2-3 VIEWS Mayito Gifford PA-C [address] [place] [address] Xr Imaging [place] [address] Referral ID Status Reason Start Date Expiration Date V isits Requested Visits Authorized [id number] Closed Auto-Generate d Referral 03/15/2024 04/14/2025 1 1 [facility] for referral (narrative)* - Pending Review Specialty Diagnoses / Procedures Referred By Wan gamboa Referred To Contact Physical Therapy Diagnoses Status post right hip replacement Procedures CONSULT TO PHYSICAL THERAPY Lois Mckeon MD [address] [place], [place] [id number] Referral ID Status Reason Start Date Expiration Date V isits Requested Visits Authorized [id number] Pending Review 04/16/2024 07/15/2024 1 1 [facility] for referral (narrative)* Outpatient Procedure (Routine) - New Request Specialty Diagnoses / Procedures Referred By Contac t Referred To Contact [facility] Diagnoses Pre-op evaluation Procedures ECG COMPLETE ECG ROUTINE ECG W/LEAST 12 LDS W/I&R Negrita Tejeda, LAY.STRUCTURAL METAL WORKER [address] [place] [address] [facility] [address] [place] [address] Referral ID Status Reason Start Date Expiration Date Visits Requested Visits Authorized [id number] New Request Auto-Generat ed Referral 4 06/05/2025 1 1 [facility] for referral (narrative)* Diagnostic Procedure Only (Routine) - Pending Review Specialty Diagnoses / Procedures Referred By Contac t Referred To Contact XR IMAGING Diagnoses Status post right hip replacement Procedures XR HIP GENERAL 3V PELV/AP/LAT RIGHT RADEX HIP UNILATERAL WITH PELVIS 2-3 VIEWS Mayito Gifford PA-C [address] [place] [address] [place] [address] Referral ID Status Reason Start Date Expiration Date Visits Requested Visits Authorized [id number] Pending Review Auto-Generat ed Referral 07/22/2024 08/21/2025 1 1 [facility] Consultation (Routine) - Pending Review Specialty Diagnoses / Procedures Referred By Contac t Referred To Contact Orthopedic Surgery Diagnoses Chronic right hip pain Imani Krueger APRN-STRUCTURAL METAL WORKER [address] [place] [address] Bang Cuellar MD [address] [place] [address] Referral ID Status Reason Start Date Expiration Date Visits Requested Visits Authorized [id number] Pending Review Specialty Services Required 09/12/2023 09/11/2024 1 1 [facility]No reason for referral information [facility] Reason for visit Narrative* Diagnostic Procedure Only (Routine) - Pending Review Specialty Diagnoses / Procedures Referred By Yuliyaac t Referred To Contact XR IMAGING Diagnoses Status post right hip replacement Procedures XR HIP GENERAL 3V PELV/AP/LAT RIGHT RADEX HIP UNILATERAL WITH PELVIS 2-3 VIEWS Mayito Gifford PA-C [address] [place] [address] [place] [address] Referral ID Status Reason Start Date Expiration Date Visits Requested Visits Authorized [id number] Pending Review Auto-Generat ed Referral 07/22/2024 08/21/2025 1 1 [facility] Summary Purpose Family History No Family History Records FoundNo Family History Records FoundNo Family History Records Found No data available for this section No data available for this section No Family History Records FoundNo Family History Records FoundNo Family History Records FoundNo Family History Records FoundNo Family History Records FoundNo Family History Records FoundNo Family History Records FoundNo Family History Records Found Advance Directives Documents on File Type Date Recorded Patient Cosmetic Surgeon Expl anation Advance Directive(s) 12/12/2020 8:14 PM Documents on File Type Date Recorded Patient Cosmetic Surgeon Expl anation Advance Directive(s) 12/12/2020 8:14 PM Advance Directive Response Recorded Date/ Time Advance Directives No December 11 3:06pm Reason for Referral Specialty Diagnoses / Procedures Referred By Wan gamboa Referred To Contact Diagnoses Chronic right hip pain Procedures Case request operating room: INJECTION BURSA LARGE JOINT RIGHT Imani Krueger, LAY-STRUCTURAL METAL WORKER [address] [place] [address] Referral ID Status Reason Start Date Expiration Date V isits Requested Visits Authorized [id number] Pending Review 08/21/2023 08/20/2024 1 1 Specialty Diagnoses / Procedures Referred By Wna gamboa Referred To Contact MR IMAGING Diagnoses Pain of right hip Procedures MRI HIP WO IVCON RIGHT MRI ANY JT LOWER EXTREM W/O CONTRAST Lois Le MD [address] [place] [address] Mr Imaging [place] [address] Referral ID Status Reason Start Date Expiration Date Visits Requested Visits Authorized [id number] New Request Auto-Generat ed Referral 03/19/2024 04/18/2025 1 1 Specialty Diagnoses / Procedures Referred By Contac t Referred To Contact Diagnoses Trochanteric bursitis of right hip Tendinopathy of right gluteal region Chronic bilateral low back pain without sciatica Lumbar spondylosis Procedures CONSULT TO CHIROPRACTOR OFFICE/OUTPATIENT [facility] 60-74 MINUTES Shiraz Roy DO [address] [place] [address] Referral ID Status Reason Start Date Expiration Date Visits Requested Visits Authorized [id number] Pending Review PCP Requested Referral 02/21/2022 02/21/2023 1 1 Specialty Diagnoses / Procedures Referred By Contac t Referred To Contact Sports Medicine Diagnoses Trochanteric bursitis of right hip Tendinopathy of right gluteal region Procedures CONSULT TO SPORTS MEDICINE OFFICE/OUTPATIENT [facility] 60-74 MINUTES Shiraz Roy DO [address] [place] [address] Referral ID Status Reason Start Date Expiration Date Visits Requested Visits Authorized [id number] Authorized PCP Requested Referral 02/21/2022 02/21/2023 1 1 Specialty Diagnoses / Procedures Referred By Contac t Referred To Contact Spine Deridder Diagnoses Trochanteric bursitis of right hip Lumbago-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 Procedures CONSULT TO [facility] OFFICE/OUTPATIENT [facility] 60-74 MINUTES Jorge Luis Page, [address] [address] Referral ID Status Reason Start Date Expiration Date Visits Requested Visits Authorized [id number] Authorized PCP Requested Referral 01/17/2022 01/17/2023 1 1 Reason evaluate and treat. Gluteal tendon tear vs greater trochanteric bursitis Please refer to Bang Christian MD, Orthopaedic Surgery, [facility] Diagnosis 1 Trochanteric bursiti s, right hip (M70.61) Referral Organization [facility] [place] [facility] Referring Provider First Name Alexis Referring Provider Last Name Dany ARDON Referring Provider Specialty Orthopedic Surgery Referred Organization [facility] Referred Address [address],[place],[address] Referred Provider Specialty ORTHOPEDIC S URGEON Referral [...] Given 12/31/2021 1:09 PM EDT 4 mg Chief Complaint and Reason for Visit Chief Complaint Admit Date NIRMALA/Inspire January 15, 2025 11:1 4am Reason for Visit Admit Date Bipolar disorder January 15, 2025 11:1 4am BMI 45.0-49.9, adult January 15, 2025 11: 14am Encounter for adjustment and management of other implanted nervous system d January 15, 2025 11:14am Obstructive sleep apnea January 15, 2025 11:14am Pulmonary hypertension January 15, 2025 1 1:14am Additional Source Comments INFORMATION SOURCE (unrecogn ized section and content) DATE CREATED AUTHOR 12/19/2017 [facility] DATE CREATED AUTHOR AUTHOR'S ORGANIZ ATION 12/08/2021 [facility] DATE CREATED AUTHOR AUTHOR'S ORGANIZ ATION 12/04/2022 [facility] DATE CREATED AUTHOR AUTHOR'S ORGANIZ ATION 07/07/2024 [facility] DATE CREATED AUTHOR AUTHOR'S ORGANIZ ATION 08/01/2024 [facility] DATE CREATED AUTHOR AUTHOR'S ORGANIZ ATION 08/24/2024 [facility] DATE CREATED AUTHOR AUTHOR'S ORGANIZ ATION 09/08/2024 [facility] DATE CREATED AUTHOR AUTHOR'S ORGANIZ ATION 11/03/2024 [facility] DATE CREATED AUTHOR AUTHOR'S ORGANIZ ATION 12/21/2024 [facility] DATE CREATED AUTHOR AUTHOR'S ORGANIZ ATION 01/05/2025 [facility] DATE CREATED AUTHOR AUTHOR'S ORGANIZ ATION 02/08/2025 [facility] REASON FOR VISIT (unrecogniz ed section and content) Reason Comments New Specialty Diagnoses / Procedures Referred By Contac t Referred To Contact Orthopedics / ORTHOPAEDIC SURGERY Diagnoses Greater Trochanteric Bursitis right hip vs Gluteal Tendon tear *OUTSIDE IMG PT TO BRING Procedures LANA NEW NO XRAY Alexis Saenz II, MD [address] [place] [address] Jorge Luis Page, [facility] [address] [place] [address] Referral ID Status Reason Start Date Expiration Date Visits Requested Visits Authorized [id number] Authorized Financial Clearance Not Required 12/24/2021 01/23/2022 99 99 Reason Comments Follow Up Reason Comments New Patient Evaluation Lower back pain/R ight side sciatica Specialty Diagnoses / Procedures Referred By Contac t Referred To Contact Spine Deridder Diagnoses Trochanteric bursitis of right hip Lumbago-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 Procedures CONSULT TO [facility] OFFICE/OUTPATIENT NEW HIGH MDM 60-74 MINUTES Jorge Luis Page, [facility] [address] [place] [address] Referral ID Status Reason Start Date Expiration Date V isits Requested Visits Authorized [id number] Closed PCP Requested Referral 01/17/2022 01/17/2023 1 1 Reason Comments New Surgical consult Reason Comments Radio Gen RMP Specialty Diagnoses / Procedures Referred By Contac t Referred To Contact XR IMAGING Diagnoses Pain in right hip Procedures XR HIP GENERAL 3V PELV/AP/LAT RIGHT RADEX HIP UNILATERAL WITH PELVIS 2-3 VIEWS Mayito Gifford PA-C [address] [place] [address] [place] [address] Referral ID Status Reason Start Date Expiration Date V isits Requested Visits Authorized [id number] Closed Auto-Generate d Referral 03/15/2024 04/14/2025 1 [...] Otolaryngology Diagnoses NIRMALA (obstructive sleep apnea) Procedures [facility] OFFICE OUTPATIENT VISIT 60-74 MINS HIGH MDM AMB REFERRAL TO ENT Trinh Eduardo MD [address] [place] [phone] Phone: tel: fax: Jeff Rossi MD [address] [place] [address] [address] [place] [address] Phone: tel: fax: Referral ID Status Reason Start Date Expiration Date V isits Requested Visits Authorized [id number] Pending Review 03/08/2024 03/08/2025 1 1 Reason Comments Post-op Reason Onset Date Comments Sleep Lab 10/31/2024 PAP Reason Comments Anxiety Source Comments (unrecognize d section and content) In the event this informatio n is protected by the Federal Confidentiality of Alcohol and Drug Abuse Patient Records regulations: The Federal rules restrict any use of the information to criminally investigate or prosecute any alcohol or drug abuse patient.[facility] the event this information is protected by the Federal Confidentiality of Alcohol and Drug Abuse Patient Records regulations: The Federal rules restrict any use of the information to criminally investigate or prosecute any alcohol or drug abuse patient.[facility] the event this information is protected by the Federal Confidentiality of Alcohol and Drug Abuse Patient Records regulations: The Federal rules restrict any use of the information to criminally investigate or prosecute any alcohol or drug abuse patient.[facility] the event this information is protected by the Federal Confidentiality of Alcohol and Drug Abuse Patient Records regulations: The Federal rules restrict any use of the information to criminally investigate or prosecute any alcohol or drug abuse patient.[facility] the event this information is protected by the Federal Confidentiality of Alcohol and Drug Abuse Patient Records regulations: The Federal rules restrict any use of the information to criminally investigate or prosecute any alcohol or drug abuse patient.[facility] the event this information is protected by the Federal Confidentiality of Alcohol and Drug Abuse Patient Records regulations: The Federal rules restrict any use of the information to criminally investigate or prosecute any alcohol or drug abuse patient.[facility] the event this information is protected by the Federal Confidentiality of Alcohol and Drug Abuse Patient Records regulations: The Federal rules restrict any use of the information to criminally investigate or prosecute any alcohol or drug abuse patient.[facility] the event this information is protected by the Federal Confidentiality of Alcohol and Drug Abuse Patient Records regulations: The Federal rules restrict any use of the information to criminally investigate or prosecute any alcohol or drug abuse patient.[facility] the event this information is protected by the Federal Confidentiality of Alcohol and Drug Abuse Patient Records regulations: The Federal rules restrict any use of the information to criminally investigate or prosecute any alcohol or drug abuse patient.[facility] the event this information is protected by the Federal Confidentiality of Alcohol and Drug Abuse Patient Records regulations: The Federal rules restrict any use of the information to criminally investigate or prosecute any alcohol or drug abuse patient.[facility] the event this information is protected by the Federal Confidentiality of Alcohol and Drug Abuse Patient Records regulations: The Federal rules restrict any use of the information to criminally investigate or prosecute any alcohol or drug abuse patient.[facility] Hospital[facility] the event this information is protected by the Federal Confidentiality of Alcohol and Drug Abuse Patient Records regulations: The Federal rules restrict any use of the information to criminally investigate or prosecute any alcohol or drug abuse patient.[facility] Care Teams (unrecognized sec tion and content) Member Certification Manager Relationship Specialty Start Date End Date Essie Ryan CNP PCP - General Family Practice 07/22/16 Adán Torres Obstetrics 07/22/16 Alexis Saenz II, MD [address] [place] [address] Referring Orthopedics 12/13/21 Member Certification Manager Relationship Specialty Start Date End Date [facility] [employer] PCP - General Family Practice 07/22/16 Adán Torres DO Obstetrics 07/22/16 Alexis Saenz II, MD [address] [place] [address] Referring Orthopedics 12/13/21 Member Certification Manager Relationship Specialty Start Date End Date CharliEssie neff [employer] PCP - General Family Practice 07/22/16 Adán Torres DO Obstetrics 07/22/16 Alexis Saenz II, MD [address] [place] [address] Referring Orthopedics 12/13/21 Member Certification Manager Relationship Specialty Start Date End Date CharliEssie neff, [employer] PCP - General Family Medicine 07/22/16 Adán Torres DO Obstetrics 07/22/16 Alexis Saenz II, MD [address] [place] [address] Referring Orthopedics 12/13/21 Angel Delgado DO [address] [place] [address] Referring Orthopedics 03/08/24 Member Certification Manager Relationship Specialty Start Date End Date Essie Ryan CNP PCP - General Family Medicine 07/22/16 Adán Torres DO Obstetrics 07/22/16 Alexis Saenz II, MD [address] [place] [address] Referring Orthopedics 12/13/21 Angel Delgado DO [address] [place] [address] Referring Orthopedics 03/08/24 Member Certification Manager Relationship Specialty Start Date End Date Essie Ryan [employer] PCP - General Family Medicine 07/22/16 Adán Torres DO Obstetrics 07/22/16 Alexis Saenz II, MD [address] [place] [address] Referring Orthopedics 12/13/21 Angel Delgado DO [address] [place] [address] Referring Orthopedics 03/08/24 Member Certification Manager Relationship Specialty Start Date End Date Yuriy Martins MD [facility] [address] PCP - General Family Medicine 08/17/23 Essie Ryan NP [address] [place] [address] PCP - [facility] 12/25/23 Essie Ryan NP [address] [place] [address] Nurse Practitioner Family Medicine 08/17/23 Member Certification Manager Relationship Specialty Start Date End Date Yuriy Martins MD [address] [place] [address] PCP - General Family Medicine 08/17/23 Essie Ryan NP [address] [place] [address] PCP - [facility] 12/25/23 Essie Ryan NP [address] [place] [address] Nurse Practitioner Family Medicine 08/17/23 Member Certification Manager Relationship Specialty Start Date End Date Essie Ryan CNP PCP - General Family Medicine 07/22/16 Adán Torres DO Obstetrics 07/22/16 Alexis Saenz II, MD [address] [place] [address] Referring Orthopedics 12/13/21 Angel Delgado DO [address] [place] [address] Referring Orthopedics 03/08/24 Member Certification Manager Relationship Specialty Start Date End Date Essie Ryan CNP PCP - General Family Medicine 07/22/16 Adán Torres DO Obstetrics 07/22/16 Alexis Saenz II, MD [address] [place] [address] Referring Orthopedics 12/13/21 Angel Delgado DO [address] [place] [address] Referring Orthopedics 03/08/24 Member Certification Manager Relationship Specialty Start Date End Date Essie Ryan NP [address] [place] [address] PCP - [facility] 12/25/23 Yuriy Martins MD [address] [place] [address] PCP - General Family Medicine 05/29/24 Essie Ryan NP [address] [place] [address] Nurse Practitioner Family Medicine 08/17/23 Member Certification Manager Relationship Specialty Start Date End Date Essie Ryan NP [address] [place] [address] PCP - [facility] 12/25/23 Yuriy Martins MD [address] [place] [address] PCP - General Family Medicine 05/29/24 Essie Ryan NP [address] [place] [address] Nurse Practitioner Family Medicine 08/17/23 Member Certification Manager Relationship Specialty Start Date End Date Essie Ryan [employer] PCP - General Family Medicine 07/22/16 Adán Torres DO Obstetrics 07/22/16 Alexis Saenz II, MD [address] [place] [address] Referring Orthopedics 12/13/21 Angel Delgado DO [address] [place] [address] Referring Orthopedics 03/08/24 Member Certification Manager Relationship Specialty Start Date End Date Essie Ryan [employer] PCP - General Family Medicine 07/22/16 Adán Torres DO Obstetrics 07/22/16 Alexis Saenz II, MD [address] [place] [address] Referring Orthopedics 12/13/21 Angel Delgado DO [address] [place], [place] [address] Referring Orthopedics 03/08/24 Member Certification Manager Relationship Specialty Start Date End Date Essie Ryan NP [address] [place] [address] PCP - [facility] 12/25/23 Yuriy Martins MD [address] [place] [address] PCP - General Family Medicine 05/29/24 Essie Ryan NP [address] [place] [address] Nurse Practitioner Family Medicine 08/17/23 Member Certification Manager Relationship Specialty Start Date End Date Essie Ryan NP [address] [place] [address] PCP - [facility] 12/25/23 Yuriy Martins MD [address] [place] [address] PCP - General Family Medicine 05/29/24 Essie Ryan NP [address] [place] [address] Nurse Practitioner Family Medicine 08/17/23 Member Certification Manager Relationship Specialty Start Date End Date Yuriy Martins MD [address] [place] [address] PCP - General Family Medicine 08/17/23 Essie Ryan NP [address] [place] [address] PCP - [facility] 12/25/23 Essie Ryan NP [address] [place] [address] Nurse Practitioner Family Medicine 08/17/23 Member Certification Manager Relationship Specialty Start Date End Date Yuriy Martins MD [address] [place] [address] PCP - General Family Medicine 08/17/23 Essie Ryan NP [address] [place] [address] PCP - [facility] 12/25/23 Essie Ryan NP [address] [place] [address] Nurse Practitioner Family Medicine 08/17/23 Member Certification Manager Relationship Specialty Start Date End Date Yuriy Martins MD [address] [place] [address] PCP - General Family Medicine 08/17/23 Essie Ryan NP [address] [place] [address] PCP - [facility] 12/25/23 Essie Ryan NP [address] [place] [address] Nurse Practitioner Family Medicine 08/17/23 Member Certification Manager Relationship Specialty Start Date End Date Yuriy Martins MD [address] [place] [address] PCP - General Family Medicine 08/17/23 Essie Ryan NP [address] [place] [address] PCP - [facility] 12/25/23 Essie Ryan NP [address] [place] [address] Nurse Practitioner Family Medicine 08/17/23 Member Certification Manager Relationship Specialty Start Date End Date Essie Ryan, DIALYSIS RN-[employer]URAL [employer] WORK[employer] PCP - General Nurse Practitioner 10/03/18 Member Certification Manager Relationship Specialty Start Date End Date Essie Ryan, DIALYSIS RN-[employer] PCP - General Nurse Practitioner 10/03/18 Member Certification Manager Relationship Specialty Start Date End Date Essie Ryan NP [address] [place] [address] PCP - [facility] 12/25/23 Yuriy Martins MD [address] [place] [address] PCP - General Family Medicine 05/29/24 Essie Ryan NP [address] [place] [address] Nurse Practitioner Family Medicine 08/17/23 Member Certification Manager Relationship Specialty Start Date End Date Essie Ryan CNP PCP - General Family Medicine 07/22/16 Adán Torres DO Obstetrics 07/22/16 Alexis Saenz II, MD [address] [place] [address] Referring Orthopedics 12/13/21 Angel Delgado DO [address] [place] [address] Referring Orthopedics 03/08/24 Member Certification Manager Relationship Specialty Start Date End Date Essie Ryan CNP PCP - General Family Medicine 07/22/16 Adán Torres DO Obstetrics 07/22/16 Alexis Saenz II, MD [address] [place] [address] Referring Orthopedics 12/13/21 Angel Delgado DO [address] [place] [address] Referring Orthopedics 03/08/24 Member Certification Manager Relationship Specialty Start Date End Date Essie Ryan APRN-STRUCTURAL METAL WORKER [address] [place] [address] PCP - General Nurse Practitioner 10/03/18 Member Certification Manager Relationship Specialty Start Date End Date Essie Ryan APRN-[employer]URAL MET[employer] WORKER [address] [place] [address] PCP - General Nurse Practitioner 10/03/18 Member Certification Manager Relationship Specialty Start Date End Date Essie Ryan [facility] [address] [place] [address] PCP - General Nurse Practitioner 10/03/18 Member Certification Manager Relationship Specialty Start Date End Date Essie Ryan [facility] [address] [place] [address] PCP - General Nurse Practitioner 10/03/18 Member Certification Manager Relationship Specialty Start Date End Date Essie Ryan [facility] [address] [place] [address] PCP - General Nurse Practitioner 10/03/18 Member Certification Manager Relationship Specialty Start Date End Date Essie Ryan [facility] PCP - General Nurse Practitioner 10/03/18 Member Certification Manager Relationship Specialty Start Date End Date Essie Ryan [facility] PCP - General Nurse Practitioner 10/03/18 Member Certification Manager Relationship Specialty Start Date End Date Essie Ryan [facility] PCP - General Nurse Practitioner 10/03/18 Member Certification Manager Relationship Specialty Start Date End Date Essie Ryan [facility] PCP - General Nurse Practitioner 10/03/18 Member Certification Manager Relationship Specialty Start Date End Date Essie Ryan NP [address] [place] [address] PCP - [facility] 12/25/23 Yuriy Martins MD [address] [place] [address] PCP - General Family Medicine 05/29/24 Essie Ryan NP [address] [place] [address] Nurse Practitioner Family Medicine 08/17/23 Member Certification Manager Relationship Specialty Start Date End Date Essie Ryan NP [address] [place] [address] PCP - [facility] 12/25/23 Yuriy Martins MD [address] [place] [address] PCP - General Family Medicine 05/29/24 Essie Ryan NP [address] [place] [address] Nurse Practitioner Family Medicine 08/17/23 Member Certification Manager Relationship Specialty Start Date End Date Essie Ryan NP [address] [place] [address] PCP - [facility] 12/25/23 Yuriy Martins MD [address] [place] [address] PCP - General Family Medicine 05/29/24 Essie Ryan NP [address] [place] [address] Nurse Practitioner Family Medicine 08/17/23 Member Certification Manager Relationship Specialty Start Date End Date Essie Ryan, DIALYSIS RN-[employer] WORK[employer] PCP - General Nurse Practitioner 10/03/18 Member Certification Manager Relationship Specialty Start Date End Date Essie Ryan NP [address] [place] [address] PCP - [facility] 12/25/23 Yuriy Martins MD [address] [place] [address] PCP - General Family Medicine 05/29/24 Essie Ryan NP [address] [place] [address] Nurse Practitioner Family Medicine 08/17/23 Member Certification Manager Relationship Specialty Start Date End Date Essie Ryan NP [address] [place] [address] PCP - [facility] 12/25/23 Yuriy Martins MD [address] [place] [address] PCP - General Family Medicine 05/29/24 Essie Ryan NP [address] [place] [address] Nurse Practitioner Family Medicine 08/17/23 Member Certification Manager Relationship Specialty Start Date End Date Essie Ryan NP [address] [place] [address] PCP - [facility] 12/25/23 Yuriy Martins MD [address] [place] [address] PCP - General Family Medicine 05/29/24 Essie Ryan NP [address] [place] [address] Nurse Practitioner Family Medicine 08/17/23 Member Certification Manager Relationship Specialty Start Date End Date Essie Ryan NP [address] [place] [address] PCP - [facility] 12/25/23 Yuriy Martins MD [address] [place] [address] PCP - General Family Medicine 05/29/24 Essie Ryan NP [address] [place] [address] Nurse Practitioner Family Medicine 08/17/23 Member Certification Manager Relationship Specialty Start Date End Date Essie Ryan NP [address] [place] [address] PCP - [facility] 12/25/23 Yuriy Martins MD [address] [place] [address] PCP - General Family Medicine 05/29/24 Essie Ryan NP [address] [place] [address] Nurse Practitioner Family Medicine 08/17/23 Member Certification Manager Relationship Specialty Start Date End Date Essie Ryan DIALYSIS RN-[employer]URAL MET[employer] WORKER PCP - General Nurse Practitioner 10/03/18 Member Certification Manager Relationship Specialty Start Date End Date Essie Ryan NP [address] [place] [address] PCP - [facility] 12/25/23 Yuriy Martins MD [address] [place] [address] PCP - General Family Medicine 05/29/24 Essie Ryan NP [address] [place] [address] Nurse Practitioner Family Medicine 08/17/23 Member Certification Manager Relationship Specialty Start Date End Date Essie Ryan NP [address] [place] [address] PCP - [facility] 12/25/23 Yuriy Martins MD [address] [place] [address] PCP - General Family Medicine 05/29/24 Essie yRan NP [address] [place] [address] Nurse Practitioner Family Medicine 08/17/23 Member Certification Manager Relationship Specialty Start Date End Date Essie Ryan NP [address] [place] [address] PCP - [facility] 12/25/23 Yuriy Martins MD [address] [place] [address] PCP - General Family Medicine 05/29/24 Essie Ryan NP [address] [place] [address] Nurse Practitioner Family Medicine 08/17/23 Member Certification Manager Relationship Specialty Start Date End Date Essie Ryan NP [address] [place] [address] PCP - [facility] 12/25/23 Yuriy Martins MD [address] [place] [address] PCP - General Family Medicine 05/29/24 Essie Ryan NP [address] [place] [address] Nurse Practitioner Family Medicine 08/17/23 Team Status: Active Member Role Status Dates Essie Ryan Primary Care Provider Active Team Status: Inactive Member Role Status Dates Paulette Warren MD Attending Provider Active S tart: January 15, 2025 End: January 15, 2025 Essie Ryan Primary Care Provider Active Sta rt: January 15, 2025 End: January 15, 2025 Member Certification Manager Relationship Specialty Start Date End Date Essie Ryan NP [address] [place] [address] PCP - [facility] 12/25/23 Yuriy Martins MD [address] [place] [address] PCP - General Family Medicine 05/29/24 Essie Ryan NP [address] [place] [address] Nurse Practitioner Family Medicine 08/17/23 Member Certification Manager Relationship Specialty Start Date End Date Essie Ryan NP [address] [place] [address] PCP - [facility] 12/25/23 Yuriy Martins MD [address] [place] [address] PCP - General Family Medicine 05/29/24 Essie Ryan NP [address] [place] [address] Nurse Practitioner Family Medicine 08/17/23 Goals (unrecognized section and content) Goals may be documented in a n alternate section FOR RECORDS PERTAINING TO PATIENTS WHO ARE [...] BE BASED ON THE PRIMARY CLINICAL RECORDS. [facility]. provides no warranty or guarantee of the accuracy or completeness of information in this document.
== END 2025-02-11 11:19 | disposition home or self-care (01) ==
PROVIDERS: PCP Nurse Practitioner; Visit Provider Urology
DX: N20.0 Calculus of kidney (principal)
CPT/HCPCS: 74018

== ENCOUNTER 2025-02-13 10:38 | Outpatient (OUT) | payer OTHER, SELFPAY ==
--- OUTSIDE RECORDS SUMMARY | 2025-02-13 10:42 | XMS_ITS | Encounter Summary ---
Author Organization [facility] Address [address] [place] [address] Care Team Providers Care Licensed Loan Officer Name Role Phone Yuriy Martins MD Primary Care Provider [phone] Essie Ryan SEARCH ADVERTISING STRATEGIST Unavailable [phone] Essie Ryan SEARCH ADVERTISING STRATEGIST Unavailable [phone] Yuriy Martins MD Primary Care Provider [phone] Encounter Details Date Type Department Care Team (Late st Contact Info) Description 11/10/2023 Clinisync Result Encounter [facility] External Department Unsolicited Shaikh Dutton MD [address] [place] [address] Social History Tobacco Use Types Packs/Day Years [...] declined 06/14/2023 How often do you attend rastafari or mormon serv ices? Patient declined 06/14/2023 Do you belong to any clubs o r organizations such as rastafari groups, unions, fraternal or athletic groups, or [...] Questionnaire-2 Score 0 11/08/2023 [facility] - Occupational Stress Questionnaire [...] EDT Narrative 11/10/2023 6:15 AM EDT The [address] [address] XRay Report Signed Patient: STACEY SAHU MR#: [id number] : 1975 Acct:[id number] Age/Sex: 48 / F ADM Date: 11/08/23 Loc: RAD Attending Dr: Shaikh Christopher Powell Ordering Physician: Shaikh Andre Dutton Date of Service: 11/08/23 Procedure(s): XR foot LT min 3V Accession Number(s): [id number] cc: Essie Ryan SEARCH ADVERTISING STRATEGIST; Shaikh Andre Dutton The [place] [id number] Patient Name: SATCEY SAHU MRN: [id number] date: 1975 Sex: F Assigned Patient Location: [facility] Current Patient Location: Accession/Order Number: [id number] Exam Date: 11/08/2023 16:47 Report Date: 11/10/2023 [...] M.D. Signed By: 11/10/23614 DD/ 0 TD/TT: Lamp Shade Maker: Procedure Note Radiology, Radiologist, MD - 11/10/2023 [place] [address] XRay Report Signed Patient: STACEY SAHU AMR#: [id number] : 1975Acct:[id number] Age/Sex: 48 / FADM Date: 11/08/23 Loc: RAD Attending Dr: Shaikh Christopher Powell Ordering Physician: Shaikh Andre Dutton Date of Service: 11/08/23 Procedure(s): XR foot LT min 3V Accession Number(s): [id number] cc: Essie Ryan SEARCH ADVERTISING STRATEGIST; Shaikh Andre Dutton [address] [address] Patient Name: STACEY SAHU MRN: [id number] date: 1975 Sex: F Assigned Patient Location: [facility] Current Patient Location: Accession/Order Number: [id number] Exam Date: 11/08/2023 16:47 Report Date: 11/10/2023 [...] Gross M.D. Signed By:11/10/23614 DD/ 0 TD/TT: Lamp Shade Maker: Shaikh Christopher [facility] Final Result documented in this encounter Visit Diagnoses Not on filedocumented in this encounter Care Teams Licensed Loan Officer Relationship Specialty Start Date End Date Yuriy Martins MD [address] [place] [address] PCP - General Family Medicine 08/17/23 04/09/24 Essie Ryan NP [address] [place] [address] PCP - [facility] 12/25/23 Yuriy Martins MD [address] [place] [address] PCP - General Family Medicine 05/29/24 Essie Ryan NP [address] [place] [address] Nurse Practitioner Family Medicine 08/17/23 documented as of this encounter
--- OUTSIDE RECORDS SUMMARY | 2025-02-13 10:42 | XMS_ITS | Encounter Summary ---
Author Organization [facility] Address [address] [place] [address] Care Team Providers Care Lead Security Officer Name Role Phone Yuriy Martins MD Primary Care Provider [phone] Essie Ryan NP Unavailable [phone] Essie Ryan NP Unavailable [phone] Yuriy Martins MD Primary Care Provider [phone] Encounter Details Date Type Department Care Team (Late st Contact Info) Description 11/22/2023 Orders Only [facility] [address] [place] [address] Essie Ryan NP [address] [place] [address] Social History Tobacco Use Types Packs/Day Years [...] declined 06/14/2023 How often do you attend synagogue or mu-ism serv ices? Patient declined 06/14/2023 Do you belong to any clubs o r organizations such as synagogue groups, unions, fraternal or athletic groups, or [...] Recorded Patient Health Questionnaire-2 Score 0 11/08/2023 [facility] ional Health - [...] Left Radiogra phic Imaging us Essie Ryan AIRCONDITIONING ENGINEER IMG XR PROCEDURES Final Result documented in this encounter Visit Diagnoses Not on filedocumented in this encounter Care Teams Lead Security Officer Relationship Specialty Start Date End Date Yuriy Martins MD [address] [facility] [place] [address] PCP - General Family Medicine 08/17/23 04/09/24 Essie Ryan NP [address] [place] [address] PCP - [facility] 12/25/23 Yuriy Martins MD [address] [place] [address] PCP - General Family Medicine 05/29/24 Essie Ryan NP [address] [place] [address] Nurse Practitioner Family Medicine 08/17/23 documented as of this encounter
--- OUTSIDE RECORDS SUMMARY | 2025-02-13 10:42 | XMS_ITS | Encounter Summary ---
Author Organization [facility] Address [address] [place] [address] Care Team Providers Care Manager Rental Name Role Phone Yuriy Martins MD Primary Care Provider [phone] Essie Ryan NP Unavailable [phone] Essie Ryan NP Unavailable [phone] Yuriy Martins MD Primary Care Provider [phone] Encounter Details Date Type Department Care Team (Late st Contact Info) Description 11/10/2023 Orders Only [facility] [address] [place] [address] Essie Ryan NP [address] [place] [address] Social History Tobacco Use Types Packs/Day Years [...] How often do you attend zoroastrianism or mormon serv ices? Patient declined 06/14/2023 [...] Recorded Patient Health Questionnaire-2 Score 0 11/08/2023 [facility] Occupat ional Health [...] filedocumented in this encounter Care Teams Manager Rental Relationship Specialty Start Date End Date Yuriy Martins MD [address] [place] [address] PCP - General Family Medicine 08/17/23 04/09/24 Essie Ryan NP [address] [place] [address] PCP - [facility] 12/25/23 Yuriy Martins MD [address] [place] [address] PCP - General Family Medicine 05/29/24 Essie Ryan NP [address] [place] [address] Nurse Practitioner Family Medicine 08/17/23 documented as of this encounter
--- OUTSIDE RECORDS SUMMARY | 2025-02-13 10:42 | XMS_ITS | Encounter Summary ---
Author Organization [facility] Address [address] [place] [address] Care Team Providers Care Alterations Manager Name Role Phone Yuriy Martins MD Primary Care Provider [phone] Essie Rayn REDUCTION FURNACE OPERATOR HELPER Unavailable [phone] Essie Ryan REDUCTION FURNACE OPERATOR HELPER Unavailable [phone] Yuriy Martins MD Primary Care Provider [phone] Encounter Details Date Type Department Care Team (Late st Contact Info) Description 11/08/2023 Orders Only [facility] [address] [place] [address] Shaikh Dutton MD [address] [place] [address] Social History Tobacco Use Types Packs/Day Years [...] declined 06/14/2023 How often do you attend sikh or baptism serv ices? Patient declined 06/14/2023 Do you belong to any clubs o r organizations such as sikh groups, unions, fraternal or athletic groups, or [...] Recorded Patient Health Questionnaire-2 Score 0 11/08/2023 [facility] Occupat ional Health - Occupational [...] on filedocumented in this encounter Care Teams Alterations Manager Relationship Specialty Start Date End Date Yuriy Martins MD [address] [place] [address] PCP - General Family Medicine 08/17/23 04/09/24 Essie Ryan NP [address] [place] [address] PCP - [facility] 12/25/23 Yuriy Martins MD [address] [place] [address] PCP - General Family Medicine 05/29/24 Essie Ryan NP [address] [place] [address] Nurse Practitioner Family Medicine 08/17/23 documented as of this encounter
--- OUTSIDE RECORDS SUMMARY | 2025-02-13 10:43 | XMS_ITS | Encounter Summary ---
Author Organization [facility] Address [address] [place] [address] Care Team Providers Care Working Second Hand Name Role Phone Yuriy Martins MD Primary Care Provider [phone] Essie Ryan VAC PRESS OPERATOR Unavailable [phone] Essie Ryan VAC PRESS OPERATOR Unavailable [phone] Yuriy Martins MD Primary Care Provider [phone] Encounter Details Date Type Department Care Team [...] declined 06/14/2023 How often do you attend sabianism or yarsani serv ices? Patient declined 06/14/2023 Do you belong to any clubs o r organizations such as sabianism groups, unions, fraternal or athletic groups, or [...] Patient Health Questionnaire-2 Score 0 11/08/2023 [facility] - Occupational Stress Questionnaire [...] AM EDT Narrative 11/22/2023 6:26 [place] [address] XRay Report Signed Patient: STACEY SAHU MR#: [id number] : 1975 Acct:[id number] Age/Sex: 48 / F ADM Date: 11/21/23 Loc: EC Attending Dr: Yessy Etienne D.P.M. Ordering Physician: Yessy Etienne D.P.M. Date of Service: 11/21/23 Procedure(s): XR foot LT min 3V Accession Number(s): [id number] cc: Essie Ryan VAC PRESS OPERATOR; Yessy Etienne D.P.M. The [address] [address] Patient Name: STACEY SAHU MRN: [id number] date: 1975 Sex: F Assigned Patient Location: Current Patient Location: Accession/Order Number: [id number] Exam Date: 11/21/2023 10:59 Report Date: 11/22/2023 [...] M.D. Signed By: 11/22/23625 DD/ 2 TD/TT: El Teacher: Procedure Note Radiology, Radiologist, MD - 11/22/2023 [place] [address] XRay Report Signed Patient: STACEY SAHU AMR#: [id number] : 1975Acct:[id number] Age/Sex: 48 / FADM Date: 11/21/23 Loc: EC Attending Dr: Yessy Etienne D.P.M. Ordering Physician: Yessy Etienne D.P.M. Date of Service: 11/21/23 Procedure(s): XR foot LT min 3V Accession Number(s): [id number] cc: Essie Ryan VAC PRESS OPERATOR; Yessy Etienne D.P.M. The [address] [address] Patient Name: STACEY SAHU MRN: [id number] date: 1975 Sex: F Assigned Patient Location: Current Patient Location: Accession/Order Number: [id number] Exam Date: 11/21/2023 10:59 Report Date: 11/22/2023 [...] Gross M.D. Signed By:11/22/23625 DD/ 2 TD/TT: El Teacher: us Generic External Data Provider [facility] Final Result documented in this encounter Visit Diagnoses Not on filedocumented in this encounter Care Teams Working Second Hand Relationship Specialty Start Date End Date Yuriy Martins MD [address] [place] [address] PCP - General Family Medicine 08/17/23 04/09/24 Essie Ryan NP [address] [place] [address] PCP - [facility] 12/25/23 Yuriy Martins MD [address] [place] [address] PCP - General Family Medicine 05/29/24 Essie Ryan NP [address] [place] [address] Nurse Practitioner Family Medicine 08/17/23 documented as of this encounter
--- OUTSIDE RECORDS SUMMARY | 2025-02-13 10:43 | XMS_ITS | Encounter Summary ---
Author Organization [facility] Address [address] [place] [address] Care Team Providers Care County Judge Name Role Phone Yuriy Martins MD Primary Care Provider [phone] Unallocated, Noms Provider Primary Care Provi singh Yuriy Martins MD Primary Care Provider [phone] AicEssie ha TUBE SPLICER Unavailable [phone] Essie Ryan NP Unavailable [phone] Yuriy Martins MD Primary Care Provider [phone] Encounter Details Date Type Department Care Team [...] EST Narrative 05/25/2023 10:00 [place] [address] XRay Report Signed Patient: STACEY SAHU MR#: [id number] : 1975 Acct:[id number] Age/Sex: 47 / F ADM Date: 05/24/23 Loc: [facility] Attending Dr: Nadir ONEILL Ordering Physician: Nadir Dominguez Date of Service: 05/24/23 Procedure(s): XR abdomen 1V Accession Number(s): [id number] cc: Essie Ryan TUBE SPLICER; Nadir Dominguez The [place] [address] Patient Name: STACEY SAHU MRN: [id number] date: 1975 Sex: F Assigned Patient Location: [facility] Current Patient Location: Accession/Order Number: [id number] Exam Date: 05/24/2023 16:36 Report Date: 05/25/2023 [...] Signed By: 05/25/23 1002 DD/ 1000 TD/TT: Breast Splitter: Procedure Note Radiology, Radiologist, MD - 05/25/2023 The [place] [id number] XRay Report Signed Patient: STACEY SAHU AMR#: [id number] : 1975Acct:[id number] Age/Sex: 47 / FADM Date: 05/24/23 Loc: RAD Attending Dr: Nadir ONEILL Ordering Physician: Nadir Dominguez Date of Service: 05/24/23 Procedure(s): XR abdomen 1V Accession Number(s): [id number] cc: Essie Ryan TUBE SPLICER; Nadir Dominguez [address] [address] Patient Name: STACEY SAHU MRN: [id number] date: 1975 Sex: F Assigned Patient Location: [facility] Current Patient Location: Accession/Order Number: [id number] Exam Date: 05/24/2023 16:36 Report Date: 05/25/2023 [...] M.D. Signed By:05/25/23 1002 DD/ 1000 TD/TT: Breast Splitter: us Generic External Data Provider [facility] Final Result documented in this encounter Visit Diagnoses Not on filedocumented in this encounter Care Teams County Judge Relationship Specialty Start Date End Date Yuriy Martins MD PCP - General Cardiology 11/29/22 07/16/23 Unallocated, Noms MD Alex [address] [place] [address] PCP - General Family Medicine 07/17/23 08/16/23 Yuriy Martins MD [address] [place] [address] PCP - General Family Medicine 08/17/23 04/09/24 Essie Ryan NP [address] [place] [address] PCP - [facility] 12/25/23 Yuriy Martins MD [address] [place] [address] PCP - General Family Medicine 05/29/24 Essie Ryan NP [address] [place] [address] Nurse Practitioner Family Medicine 08/17/23 documented as of this encounter
--- OUTSIDE RECORDS SUMMARY | 2025-02-13 10:43 | XMS_ITS | Encounter Summary ---
Author Organization [facility] Address [address] [place], [place] [address] Care Team Providers Care Solar Photovoltaic Installer Name Role Phone CharliEssie ha Fely BAH Primary Care Provider [phone] Adán Torres DO Unavailable [phone] Dany ARDON MD, [facility] Unavailable + Angel Delgado DO Unavailable [phone] Source Comments In the event this information is protected by the Federal Confidentiality of Alcohol and Drug AbusePatient Records regulations: The Federal rules restrict any use of the information to criminally investigate or prosecute any alcohol or drug abuse patient.[facility] Encounter Details Date Type Department Care Team (Late st Contact Info) Description 01/10/2025 Get Medical Advice Orthopaedics [address] [place], [place] [id number] Yanni [place] MD [address] [place] [address] Hip Social History Tobacco Use Types Packs/Day Years Used Date Smoking Tobacco: Never Smokeless Tobacco: Never Alcohol Use Standard Drinks/Week Comments No 0 (1 standard drink = 0.6 oz pur e alcohol) [facility] Utilities Answer Date Recorded In [...] any time in the past 12 m [facility], were you homeless or living in a fpc (including now)? No 07/01/2024 Area Deprivation Index Answer Date Erik rded National Score (1-100), lower number is lower ri sk 93 03/15/2024 State Score (1-10), lower number is lower risk 9 03/15/2024 Data from: https://www.neighborhoodatlas.medicine.[facility].edu/. Last address used for calculation [address] [...] on filedocumented in this encounter Care Teams Solar Photovoltaic Installer Relationship Specialty Start Date End Date Essie Ryan CNP PCP - General Family Medicine 07/22/16 Adán Torres DO Obstetrics 07/22/16 Alexis Saenz II, MD [address] [place] [address] Referring Orthopedics 12/13/21 Angel Delgado DO [address] [place] [address] Referring Orthopedics 03/08/24 documented as of this encounter
--- OUTSIDE RECORDS SUMMARY | 2025-02-13 10:43 | XMS_ITS | Encounter Summary ---
Author Organization [facility] Address [address] [place], [place] [address] Care Team Providers Care Oncology Specialist Name Role Phone CharliEssie ha Fely BAH Primary Care Provider [phone] Adán Torres DO Unavailable [phone] Dany ARDON MD, [facility] Unavailable + Angel Delgado DO Unavailable [phone] Source Comments In the event this information is protected by the Federal Confidentiality of Alcohol and Drug AbusePatient Records regulations: The Federal rules restrict any use of the information to criminally investigate or prosecute any alcohol or drug abuse patient.[facility] Encounter Details Date Type Department Care Team (Late st Contact Info) Description 09/17/2024 Get Medical Advice Orthopaedics [address] [place], [place] [id number] Yanni [place] MD [address] [place] [address] Medicine Social History Tobacco Use Types Packs/Day Years Used Date Smoking Tobacco: Never Smokeless Tobacco: Never Alcohol Use Standard Drinks/Week Comments No 0 (1 standard drink = 0.6 oz pur e alcohol) [facility] Utilities Answer Date Recorded In [...] any time in the past 12 m [facility], were you homeless or living in a nursing home (including now)? No 07/01/2024 Area Deprivation Index Answer Date Erik rded National Score (1-100), lower number is lower ri sk 93 03/15/2024 State Score (1-10), lower number is lower risk 9 03/15/2024 Data from: https://www.neighborhoodatlas.medicine.[facility].edu/. Last address used for calculation [...] on filedocumented in this encounter Care Teams Oncology Specialist Relationship Specialty Start Date End Date Essie Ryan CNP PCP - General Family Medicine 07/22/16 Adán Torres DO Obstetrics 07/22/16 Alexis Saenz II, MD [address] [place] [address] Referring Orthopedics 12/13/21 Angel Delgado DO [address] [place] [address] Referring Orthopedics 03/08/24 documented as of this encounter
--- OUTSIDE RECORDS SUMMARY | 2025-02-13 10:43 | XMS_ITS | Encounter Summary ---
Author Organization [facility] Address [address] [place] [address] Care Team Providers Care Front Desk Officer Name Role Phone Yuriy Martins MD Primary Care Provider [phone] Essie Ryan RN ADMIT Unavailable [phone] Essie Ryan RN ADMIT Unavailable [phone] Yuriy Martins MD Primary Care Provider [phone] Encounter Details Date Type Department Care Team (Late st Contact Info) Description 01/01/2024 Orders Only [facility] [address] [place] [address] Angel Delgado MD [address] [place] [address] Social History Tobacco Use Types Packs/Day [...] declined 06/14/2023 How often do you attend jew or lutheran serv ices? Patient declined 06/14/2023 Do you belong to any clubs o r organizations such as jew groups, unions, fraternal or athletic groups, or [...] Recorded Patient Health Questionnaire-2 Score 0 11/08/2023 [facility] of Occupat ional Health - Occupational Stress [...] on filedocumented in this encounter Care Teams Front Desk Officer Relationship Specialty Start Date End Date Yuriy Martins MD [address] [place] [address] PCP - General Family Medicine 08/17/23 04/09/24 Essie Ryan NP [address] [place] [address] PCP - [facility] 12/25/23 Yuriy Martins MD [address] [place] [address] PCP - General Family Medicine 05/29/24 Essie Ryan NP [address] [place] [address] Nurse Practitioner Family Medicine 08/17/23 documented as of this encounter
--- OUTSIDE RECORDS SUMMARY | 2025-02-13 10:43 | XMS_ITS | Encounter Summary ---
Author Organization [facility] Address [address] [place] [address] Care Team Providers Care Portable Machine Sander Name Role Phone Yuriy Martins MD Primary Care Provider [phone] Essie Ryan OFFSET PRESS OPERATOR HELPER Unavailable [phone] Essie Ryan OFFSET PRESS OPERATOR HELPER Unavailable [phone] Yuriy Martins MD Primary Care Provider [phone] Encounter Details Date Type Department Care Team [...] declined 06/14/2023 How often do you attend jain or druze serv ices? Patient declined 06/14/2023 Do you belong to any clubs o r organizations such as jain groups, unions, fraternal or athletic groups, or [...] Patient Health Questionnaire-2 Score 2 07/13/2023 [facility] - Occupational Stress Questionnaire Answer [...] AM EST Narrative 08/29/2023 10:42 [place] [address] XRay Report Signed Patient: STACEY SAHU MR#: [id number] : 1975 Acct:[id number] Age/Sex: 48 / F ADM Date: 08/29/23 Loc: [facility] Attending Dr: Non-Staff Physician Andre Ordering Physician: PhysicianNonAndrewStaff Andre Date of Service: 08/29/23 Procedure(s): XR hip RT 2V w/ pelvis Accession Number(s): [id number] cc: Essie Ryan NP; Physician,Non-Staff Andre The [address] [address] Patient Name: STACEY SAHU MRN: [id number] date: 1975 Sex: F Assigned Patient Location: [facility] Current Patient Location: [facility] Accession/Order Number: [id number] Exam Date: 08/29/2023 10:06 Report Date: 08/29/2023 [...] Signed By: 08/29/23 1042 DD/ 1040 TD/TT: Industrial Cleaning Technician: Procedure Note Radiology, Radiologist, - 08/29/2023 [place] [address] XRay Report Signed Patient: STACEY SAHU AMR#: [id number] : 1975Acct:[id number] Age/Sex: 48 / FADM Date: 08/29/23 Loc: [facility] Attending Dr: Non-Staff Physician Andre Ordering Physician: PhysicianKristinaStaff Andre Date of Service: 08/29/23 Procedure(s): XR hip RT 2V w/ pelvis Accession Number(s): [id number] cc: Essie Ryan NP; PhysicianKristinaStaff Andre The [address] [address] Patient Name: STACEY SAHU MRN: [id number] date: 1975 Sex: F Assigned Patient Location: RAD Current Patient Location: RAD Accession/Order Number: [id number] Exam Date: 08/29/2023 10:06 Report Date: 08/29/2023 [...] acetabular osteophyte formation Electronically authenticated by: PAULETTE GAVLAN Date: 08/29/2023 10:40 Dictated By: Paulette Galvan M.D. Signed By:08/29/23 1042 DD/ 1040 TD/TT: Industrial Cleaning Technician: Generic External Data Provider IMG XR PROCEDURES Final Result documented in this encounter Visit Diagnoses Not on filedocumented in this encounter Care Teams Portable Machine Sander Relationship Specialty Start Date End Date Yuriy Martins MD [address] [place] [address] PCP - General Family Medicine 08/17/23 04/09/24 Essie Ryan NP [address] [place] [address] PCP - [facility] 12/25/23 Yuriy Martins MD [address] [place] [address] PCP - General Family Medicine 05/29/24 Essie Ryan NP [address] [place] [address] Nurse Practitioner Family Medicine 08/17/23 documented as of this encounter
--- OUTSIDE RECORDS SUMMARY | 2025-02-13 10:43 | XMS_ITS | Encounter Summary ---
Author Organization [facility] Address [address] [place], [place] [address] Care Team Providers Care Automation Consultant Name Role Phone CharliEssie ha Fely BAH Primary Care Provider [phone] Adán Torres DO Unavailable [phone] Dany ARDON MD, [facility] Unavailable + Angel Delgado DO Unavailable [phone] Source Comments In the event this information is protected by the Federal Confidentiality of Alcohol and Drug AbusePatient Records regulations: The Federal rules restrict any use of the information to criminally investigate or prosecute any alcohol or drug abuse patient.[facility] Encounter Details Date Type Department Care Team (Late st Contact Info) Description 09/30/2024 Patient Msg Orthopaedics [address] [place], [place] [id number] Yanni Spring MD [address] [place] [address] Appointment Request Social History Tobacco Use Types Packs/Day Years Used Date Smoking Tobacco: Never Smokeless Tobacco: Never Alcohol Use Standard Drinks/Week Comments No 0 (1 standard drink = 0.6 oz pur e alcohol) [facility] Utilities Answer Date Recorded In [...] any time in the past 12 m [facility], were you homeless or living in a half-way (including now)? No 07/01/2024 Area Deprivation Index Answer Date Erik rded National Score (1-100), lower number is lower ri sk 93 03/15/2024 State Score (1-10), lower number is lower risk 9 03/15/2024 Data from: https://www.neighborhoodatlas.medicine.[facility].edu/. Last address used for calculation [address] [...] on filedocumented in this encounter Care Teams Automation Consultant Relationship Specialty Start Date End Date Essie Ryan CNP PCP - General Family Medicine 07/22/16 Adán Torres DO Obstetrics 07/22/16 Alexis Saenz II, MD [address] [place] [address] Referring Orthopedics 12/13/21 Angel Delgado DO [address] [place] [address] Referring Orthopedics 03/08/24 documented as of this encounter
--- OUTSIDE RECORDS SUMMARY | 2025-02-13 10:43 | XMS_ITS | Encounter Summary ---
Author Organization [facility] Address [address] [place] [address] Care Team Providers Care Glass Rolling Machine Operator Name Role Phone Yuriy Martins MD Primary Care Provider [phone] Essie Ryan UPPER LEATHER CUTTER Unavailable [phone] Essie Ryan UPPER LEATHER CUTTER Unavailable [phone] Yuriy Martins MD Primary Care Provider [phone] Encounter Details Date Type Department Care Team [...] How often do you attend uatsdin or buddhism serv ices? Patient declined 06/14/2023 Do you [...] Recorded Patient Health Questionnaire-2 Score 0 11/08/2023 [facility] - Occupational Stress Questionnaire [...] Mild right hip osteoarthritis, similar to 11/17/2021. Self Rising Flour Mixer: AGAPITO Transcribe Date/Time: Mar 19 2024 9:10A Dictated by : MELISSA MODI MD This examination was interpreted and the report reviewed and electronically signed by: MELISSA MODI MD on Mar 19 2024 9:11AM EST [id number]^[id number]^SI^ACN Procedure Note Radiology, Radiologist, MD - 03/19/2024 [...] COMPARISON: MR right femur 12/03/2021, right femur [id number]/25/2022 RESULT: No acute fracture or osseous alignment. Bilateral superior acetabular osteophytes, slightly more pronounced on the right and similar to prior. Hip joint spaces are maintained bilaterally. Sacroiliac joint spaces and pubic symphysis are also preserved. Facet arthropathy at L5-S1, more pronounced on the left. Redemonstrated postoperative changes in the right lower quadrant. IMPRESSION: Mild right hip osteoarthritis, similar to 11/17/2021. Self Rising Flour Mixer: MyFrontSteps Transcribe Date/Time: Mar 19 2024 9:10A Dictated by : MELISSA MODI MD This examination was interpreted and the report reviewed and electronically signed by: MELISSA MODI MD on Mar 19 2024 9:11AM EST [id number]^AGFA_[id number]^SI^ACN us Generic External Data Provider [facility] Final Result documented in this encounter Visit Diagnoses Not on filedocumented in this encounter Care Teams Glass Rolling Machine Operator Relationship Specialty Start Date End Date Yuriy Martins MD [address] [place] [address] PCP - General Family Medicine 08/17/23 04/09/24 Essie Ryan NP [address] [place] [address] PCP - [facility] 12/25/23 Yuriy Martins MD [address] [place] [address] PCP - General Family Medicine 05/29/24 Essie Ryan NP [address] [place] [address] Nurse Practitioner Family Medicine 08/17/23 documented as of this encounter
--- OUTSIDE RECORDS SUMMARY | 2025-02-13 10:43 | XMS_ITS | Clinical Summary ---
Author Organization [facility] Address [address] [place], [place] [address] Care Team Providers Care Accessioner Name Role Phone Essie Ryan CNP Primary Care Provider Adán Torres DO Unavailable [phone] Dany ARDON MD, [facility] [place] Unavailable + Angel Delgado DO Unavailable [phone] Allergies Active Allergy Reactions Criticality Noted [...] 7 Crohn's disease without comp lication (HCC) [id number] 07/27/2016 Pulmonary HTN Assessment & Plan (06/05/2024 [...] Team Description 01/10/2025 Get Medical Advice Orthopaedics [address] [place] [address] Yanni Spring MD Hip 01/10/2025 Patient Msg Orthopaedic Surgery [facility] [address] [place] [address] Yanni Spring MD Appointment Request from Last [...] drink = 0.6 oz pur e alcohol) [facility] Utilities Answer Date Recorded In the [...] any time in the past 12 m [facility], were you homeless or living in a senior care (including now)? No 07/01/2024 Area Deprivation Index Answer Date Erik rded National Score (1-100), lower number is lower ri sk 93 03/15/2024 State Score (1-10), lower number is lower risk 9 03/15/2024 Data from: https://www.neighborhoodatlas.medicine.[facility].edu/. Last address used for calculation [...] Completed 12/12/2020 Medical Devices Implanted Type Area Sitecore Developer Device Identifier Shelf Expiration Date Model / Serial / Lot Insert Acetabular 32mm 0d D Hip X3 Trident Sterile Latex Free - [id number] Implanted:Qty: 1 on 07/01/[address] [facility] Joint - Hip Right: Bone - Hip AYDEE 11/28/2028 [id number] / / [id number] Shell Trident Ii 48mm D Tritanium Acetabular 3 Screw Hole Cluster Sterile - [id number] Implanted:Qty: 1 on 07/01/[address] [facility] Joint - Hip Right: Bone - Hip [employer] 04/11/2029 [id number] / / [id number] Stem Femoral 8x99mm Size 2 High Insignia Collared - [id number] Implanted:Qty: 1 on 07/01/[address] [facility] Joint - Hip Right: Bone - Hip AYDEE 01/31/2029 [id number] / / [id number] Head V40 32mm -4mm Offset Taper Biolox Delta Femoral Hip - [id number] Implanted:Qty: 1 on 07/01/[address] [facility] Joint - Hip Right: Bone - Hip [employer] 12/25/2028 [id number] / / [id number] Screw Trident Ii 6.5mm 30mm Bone Low Profile Hexagonal Sterile - [id number] Implanted:Qty: 1 on 07/01/[address] [facility] Screw Right: Bone - Hip [employer] 02/08/2029 [id number] / / [id number] Procedures Procedure Name Priority [...] 74 - 99 mg/dL 06/06/2024 10:14 AM [facility] Comment: The [place] [employer] Association (ADA) provides guidance for cutoff [...] Standards of Medical Care in Diabetes 2016, [place] [employer]. Diabetes Care. 2016.39(Suppl 1). BUN 17 7 - 21 mg/dL 06/06/2024 10:14 AM [facility] Creatinine 0.70 0.58 - 0.96 mg/dL 06/06/2024 10:14 AM [facility] Sodium 140 136 - 144 mmol/L 06/06/2024 10:14 AM [facility] Potassium 4.9 3.7 - 5.1 mmol/L 06/06/2024 10:14 AM [facility] Chloride 104 98 - 107 mmol/L 06/06/2024 10:14 AM EST [facility] CO2 25 22 - 30 mmol/L 06/06/2024 10:14 AM [facility] Anion Gap 11 8 - 15 mmol/L 06/06/2024 10:14 AM [facility] Calcium, Total 9.6 8.5 - 10.2 mg/dL 06/06/2024 10:14 AM [facility] Estimated Glomerular Filtration Rate 108 >=60 mL/min/1.7 3m 06/06/2024 10:14 AM EST [facility] Comment:Estimated Glomerular Filtration Rate (eGFR) [...] 06/05/2024 10:59 AM EST us Negrita Tejeda PHOTOENGRAVING RETOUCHER.[facility] Naomi l Result [facility] [address] [id number], [place] * COLONOSCOPY GEN ANES (12/15/2020 7:19 AM EDT) Windows Systems Administrator Q3 Patient Name: Stacey Sahu Procedure Date: [...] for review. Procedure Code(s): --- Professional --- 03949, Colonoscopy, flexible; with biopsy, single or multiple CPT copyright 2019 [place]. All rights reserved. Attending Participation: [...] Total Negative Negative 12/13/2020 11:17 AM EDT [facility] Hep C Antibody IA Negative Negative 12/13/2020 11:18 AM EDT [facility] HBsAg Negative Negative 12/13/2020 11:18 AM EDT [facility] Hep B Surface Ab, Qual Negative Negative 12/13/2020 11:18 AM EDT [facility] Comment:NEGATIVE Blood BLOOD SPECIMEN / Unknown 12/12/2020 10:19 PM EDT 12/12/2020 10:20 PM EDT Vania Jackson MD LABORATORY Final Resu lt [facility] [address] [facility] [place] [address] [facility] [employer] [address] [place] [address] from Last 3 Months or Most Recently Relevant to Health Maintenance [place] [address] Care Teams Accessioner Relationship Specialty Start Date End Date Essie Ryan CNP PCP - General Family Medicine 07/22/16 Adán Torres DO [facility] 07/22/16 Alexis Saenz II, MD [address] [place] [address] Referring Orthopedics 12/13/21 Angel Delgado DO [address] [place] [address] Referring Orthopedics 03/08/24
--- OUTSIDE RECORDS SUMMARY | 2025-02-13 10:43 | XMS_ITS | Encounter Summary ---
Author Organization [facility] Address [address] [place] [address] Care Team Providers Care Diaper Machine Tender Name Role Phone Essie Ryan LIDAR SCIENTIST Unavailable [phone] Essie Ryan NP Unavailable [phone] Yuriy Martins MD Primary Care Provider [phone] Encounter Details Date Type Department Care Team [...] How often do you attend shinto or pentecostal serv ices? Patient declined 06/14/2023 [...] Recorded Patient Health Questionnaire-2 Score 0 11/08/2023 [facility]at ional [...] QTC Calculation(Bazett) : 447 ms Calculated P Clifton : 56 degrees Calculated R Clifton : 72 degrees Calculated T Clifton : 65 degrees NORMAL SINUS RHYTHM NORMAL ECG Confirmed by PETR LUCIANO MD ([id number]) on 2024 2:12:45 PM NAME : STACEY SAHU PID : [id number] : 1975 Gender : Female Race : ORD : [id number] Procedure Date : Jun 05 2024 10:36:34 Edit Date : 2024 14:15:04 Diagnosis: NORMAL SINUS RHYTHM NORMAL ECG Confirmed by PETR LUCIANO MD ([id number]) on 2024 2:12:45 PM Test Reason : [...] QTC Calculation(Bazett) : 447 ms Calculated P Clifton : 56 degrees Calculated R Clifton : 72 degrees Calculated T Clifton : 65 degrees NORMAL SINUS RHYTHM NORMAL ECG Confirmed by PETR LUCIANO MD ([id number]) on 2024 2:12:45 PM NAME : STACEY SAHU PID : [id number] : 1975 Gender : Female Race : ORD : [id number] Procedure Date : Jun 05 2024 10:36:34 Edit Date : 2024 14:15:04 Diagnosis: NORMAL SINUS RHYTHM NORMAL ECG Confirmed by PETR LUCIANO MD ([id number]) on 2024 2:12:45 PM Test Reason : PRE OP Location : 545 : W[facility]AC Overread By : PETR LUCIANO MD Edited By : PETR LUCIANO MD Referred By : LOIS MCKEON Acquired by : GERALDO, us Generic External Data Provider ECG ORDERABLES F inal Result [facility] documented in this encounter Visit Diagnoses Not on filedocumented in this encounter Care Teams Diaper Machine Tender Relationship Specialty Start Date End Date Essie Ryan NP [address] [place] [address] PCP - [facility] 12/25/23 Yuriy Martins MD [address] [place] [address] PCP - General Family Medicine 05/29/24 Essie Ryan NP [address] [place] [address] Nurse Practitioner Family Medicine 08/17/23 documented as of this encounter
--- OUTSIDE RECORDS SUMMARY | 2025-02-13 10:43 | XMS_ITS | Encounter Summary ---
Author Organization [facility] Address [address] [place] [address] Care Team Providers Care Hospital Admissions Clerk Name Role Phone Yuriy Martins MD Primary Care Provider [phone] Essie Ryan MAINTENANCE MECHANIC Unavailable [phone] Essie Ryan NP Unavailable [phone] Yuriy Martins MD Primary Care Provider [phone] Encounter Details Date Type Department Care Team (Late st Contact Info) Description 08/17/2023 Clinisync Result Encounter [facility] External Department Unsolicited Essie Ryan, MAINTENANCE MECHANIC [address] [place] [address] Social History Tobacco Use Types Packs/Day Years [...] declined 06/14/2023 How often do you attend buddhism or lutheran serv ices? Patient declined 06/14/2023 Do you belong to any clubs o r organizations such as buddhism groups, unions, fraSolarGreen or athletic groups, or school groups? Patient [...] Patient Health Questionnaire-2 Score 2 07/13/2023 [facility] - Occupational Stress Questionnaire Answer [...] EST Narrative 08/17/2023 7:39 [place] [address] Mammography Report Signed Patient: STACEY SAHU MR#: [id number] : 1975 Acct:[id number] Age/Sex: 48 / F ADM Date: 08/16/23 Loc: MAMMO Attending Dr: Essie Ryan NP Ordering Physician: Essie Ryan NP Results: Date of Service: 08/16/23 Follow Up: Procedure(s): MM tomosynthesis screening BI Accession Number(s): [id number] cc: Essie Ryan NP Patient Name: STACEY SAHU MR#: [id number] : 1975 Exam Date: 08/16/2023 Ordering Doctor: [...] colon cancer at age 56. LOCATION: [facility] BREAST COMPOSITION: Scattered areas fibroglandular [...] Signed By: 08/17/23 0739 DD/ 0738 TD/TT: Tool Shaper Setup Operator: Procedure Note Radiology, Radiologist, MD - 08/17/2023 [place] [address] Mammography Report Signed Patient: STACEY SAHU AMR#: [id number] : 1975Acct:[id number] Age/Sex: 48 / FADM Date: 08/16/23 Loc: MAMMO Attending Dr: Essie Ryan MAINTENANCE MECHANIC Ordering Physician: Essie Ryan NPResults: Date of Service: 08/16/23Follow Up: Procedure(s): MM tomosynthesis screening BI Accession Number(s): [id number] cc: Essie Ryan MAINTENANCE MECHANIC Patient Name: STACEY SAHU MR#: [id number] : 1975 Exam Date: 08/16/2023 Ordering Doctor: [...] colon cancer at age 56. LOCATION: [facility] BREAST COMPOSITION: Scattered areas fibroglandular [...] Gross M.D. Signed By:08/17/23 0739 DD/ TD/TT: Tool Shaper Setup Operator: Essie Ryan NP [facility] Final Result documented in this encounter Visit Diagnoses Not on filedocumented in this encounter Care Teams Hospital Admissions Clerk Relationship Specialty Start Date End Date Yuriy Martins MD [address] [place] [address] PCP - General Family Medicine 08/17/23 04/09/24 Essie Ryan NP [address] [place] [address] PCP - [facility] 12/25/23 Yuriy Martins MD [address] [place] [address] PCP - General Family Medicine 05/29/24 Essie Ryan NP [address] [place] [address] Nurse Practitioner Family Medicine 08/17/23 documented as of this encounter
--- OUTSIDE RECORDS SUMMARY | 2025-02-13 10:43 | XMS_ITS | Encounter Summary ---
Author Organization [facility] Address [address] [place], [place] [address] Care Team Providers Care Business Solutions Architect Name Role Phone CharliEssie ha Fely BAH Primary Care Provider [phone] Adán Torres DO Unavailable [phone] Dany ARDON MD, [facility] Unavailable + Angel Delgado DO Unavailable [phone] Source Comments In the event this information is protected by the Federal Confidentiality of Alcohol and Drug AbusePatient Records regulations: The Federal rules restrict any use of the information to criminally investigate or prosecute any alcohol or drug abuse patient.[facility] Encounter Details Date Type Department Care Team (Late st Contact Info) Description 09/30/2024 Get Medical Advice Orthopaedics [address] [place], [place] [id number] Yanni Spring MD [address] [place] [address] Visit Social History Tobacco Use Types Packs/Day Years Used Date Smoking Tobacco: Never Smokeless Tobacco: Never Alcohol Use Standard Drinks/Week Comments No 0 (1 standard drink = 0.6 oz pur e alcohol) [facility] Utilities Answer Date Recorded In the past [...] in a senior living (including now)? No 07/01/2024 Area Deprivation Index Answer Date Erik rded National Score (1-100), lower number is lower ri sk 93 03/15/2024 State Score (1-10), lower number is lower risk 9 03/15/2024 Data from: https://www.neighborhoodatlas.medicine.[facility].edu/. Last address used for calculation [address] [...] on filedocumented in this encounter Care Teams Business Solutions Architect Relationship Specialty Start Date End Date Essie Ryan CNP PCP - General Family Medicine 07/22/16 Adán Torres DO Obstetrics 07/22/16 Alexis Saenz II, MD [address] [place] [address] Referring Orthopedics 12/13/21 Angel Delgado DO [address] [place] [address] Referring Orthopedics 03/08/24 documented as of this encounter
--- OUTSIDE RECORDS SUMMARY | 2025-02-13 10:43 | XMS_ITS | Encounter Summary ---
Author Organization [facility] Address [address] [place] [address] Care Team Providers Care Inspector Wire Rope Name Role Phone Yuriy Martins MD Primary Care Provider [phone] Essie Ryan LINE WELDER Unavailable [phone] Essie Ryan LINE WELDER Unavailable [phone] Yuriy Martins MD Primary Care Provider [phone] Encounter Details Date Type Department Care Team (Late st Contact Info) Description 08/31/2023 Orders Only [facility] [address] [place] [address] Social History Tobacco Use Types [...] declined 06/14/2023 How often do you attend tenriism or muslim serv ices? Patient declined 06/14/2023 Do you belong to any clubs o r organizations such as tenriism groups, unions, fraternal or athletic groups, or [...] Patient Health Questionnaire-2 Score 2 07/13/2023 [facility]at ional Health - [...] Laterality Modality Radiographic Francheska ging [facility] IMG XR PROCEDURES Final Result documented in this encounter Visit Diagnoses Not on filedocumented in this encounter Care Teams Inspector Wire Rope Relationship Specialty Start Date End Date Yuriy Martins MD [address] [place] [address] PCP - General Family Medicine 08/17/23 04/09/24 Essie Ryan NP [address] [place] [address] PCP - [facility] 12/25/23 Yuriy Martins MD [address] [place] [address] PCP - General Family Medicine 05/29/24 Essie Ryan NP [address] [place] [address] Nurse Practitioner Family Medicine 08/17/23 documented as of this encounter
--- OUTSIDE RECORDS SUMMARY | 2025-02-13 10:43 | XMS_ITS | Encounter Summary ---
Author Organization [facility] Address [address] [facility] [place] [address] Care Team Providers Care Claims Associate Name Role Phone Yuriy Martins MD Primary Care Provider [phone] Essie Ryan INFRASTRUCTURE CONSULTANT Unavailable [phone] Essie Ryan INFRASTRUCTURE CONSULTANT Unavailable [phone] Yuriy Martins MD Primary Care Provider [phone] Encounter Details Date Type Department Care Team (Late st Contact Info) Description 03/27/2024 Orders Only [facility] [address] [place] [address] Essie Ryan NP [address] [place] [place] [address] Social History Tobacco Use Types Packs/Day Years [...] declined 06/14/2023 How often do you attend zoroastrian or mormonism serv ices? Patient declined 06/14/2023 Do you belong to any clubs o r organizations such as zoroastrian groups, unions, fraternal or athletic groups, or [...] Patient Health Questionnaire-2 Score 0 11/08/2023 [facility] [...] on filedocumented in this encounter Care Teams Claims Associate Relationship Specialty Start Date End Date Yuriy [place] [address] PCP - General Family Medicine 08/17/23 04/09/24 Essie Ryan NP [address] [place] [address] PCP - [facility] 12/25/23 Yuriy Martins MD [address] [place] [address] PCP - General Family Medicine 05/29/24 Essie Ryan NP [address] [place] [address] Nurse Practitioner Family Medicine 08/17/23 documented as of this encounter
--- OUTSIDE RECORDS SUMMARY | 2025-02-13 10:43 | XMS_ITS | Encounter Summary ---
Author Organization [facility] Address [address] [place], [place] [address] Care Team Providers Care Community Center Director Name Role Phone CharliEssie ha Fely BAH Primary Care Provider [phone] Adán Torres DO Unavailable [phone] Dany ARDON MD, [facility] Unavailable + Angel Delgado DO Unavailable [phone] Source Comments In the event this information is protected by the Federal Confidentiality of Alcohol and Drug AbusePatient Records regulations: The Federal rules restrict any use of the information to criminally investigate or prosecute any alcohol or drug abuse patient.[facility] Encounter Details Date Type Department Care Team (Late st Contact Info) Description 09/30/2024 Patient Msg Orthopaedics [address] [place], [place] [id number] Yanni Spring MD [address] [place] [address] Appointment Request Social History Tobacco Use Types Packs/Day Years Used Date Smoking Tobacco: Never Smokeless Tobacco: Never Alcohol Use Standard Drinks/Week Comments No 0 (1 standard drink = 0.6 oz pur e alcohol) [facility] Utilities Answer Date Recorded In [...] were you homeless or living in a mcc (including now)? No 07/01/2024 Area Deprivation Index Answer Date Erik rded National Score (1-100), lower number is lower ri sk 93 03/15/2024 State Score (1-10), lower number is lower risk 9 03/15/2024 Data from: https://www.neighborhoodatlas.medicine.[facility].edu/. Last address used for calculation [...] on filedocumented in this encounter Care Teams Community Center Director Relationship Specialty Start Date End Date Essie Ryan CNP PCP - General Family Medicine 07/22/16 Adán Torres DO Obstetrics 07/22/16 Alexis Saenz II, MD [address] [place] [address] Referring Orthopedics 12/13/21 Angel Delgado DO [address] [place] [address] Referring Orthopedics 03/08/24 documented as of this encounter
--- OUTSIDE RECORDS SUMMARY | 2025-02-13 10:43 | XMS_ITS | Encounter Summary ---
Author Organization [facility] Address [address] [place] [address] Care Team Providers Care Director Of Hotel Operations Name Role Phone Unallocated, Noms Provider Primary Care Provi singh Yuriy Martins MD Primary Care Provider [phone] Essie Ryan END MATCHER Unavailable [phone] Essie Ryan NP Unavailable [phone] Yuriy Martins MD Primary Care Provider [phone] Encounter Details Date Type Department Care Team (Late st Contact Info) Description 08/16/2023 Clinisync Result Encounter [facility] External Department Unsolicited Essie Ryan, NETO [address] [place] [address] Social History Tobacco Use Types Packs/Day Years [...] declined 06/14/2023 How often do you attend baptism or lutheran serv ices? Patient declined 06/14/2023 Do you belong to any clubs o r organizations such as baptism groups, unions, fraternal or athletic groups, or [...] Recorded Patient Health Questionnaire-2 Score 2 07/13/2023 [facility] Occupat ional Health - Occupational [...] EST Narrative 08/16/2023 8:48 [place] [address] CT Scan Report Signed Patient: STACEY SAHU MR#: [id number] : 1975 Acct:[id number] Age/Sex: 48 / F ADM Date: 08/16/23 Loc: MAMMO Attending Dr: Essie Ryan NP Ordering Physician: Aichholz,Essie END MATCHER Date of Service: 08/16/23 Procedure(s): CT sinus wo con Accession Number(s): [id number] cc: Essie Ryan NP The [place] [id number] Patient Name: STACEY SAHU MRN: [id number] date: 1975 Sex: F Assigned Patient Location: MAMMO Current Patient Location: [facility] Accession/Order Number: [id number] Exam Date: 08/16/2023 07:40 Report Date: 08/16/2023 [...] M.D. Signed By: 08/16/2348 DD/ 5 TD/TT: Waxer: Procedure Note Radiology, Radiologist, MD - 08/16/2023 [place] [address] CT Scan Report Signed Patient: STACEY SAHU AMR#: [id number] : 1975Acct:[id number] Age/Sex: 48 / FADM Date: 08/16/23 Loc: MAMMO Attending Dr: Essie Ryan NP Ordering Physician: Essie Ryan NP Date of Service: 08/16/23 Procedure(s): CT sinus wo con Accession Number(s): [id number] cc: Essie Ryan NP [place] [id number] Patient Name: STACEY SAHU MRN: [id number] date: 1975 Sex: F Assigned Patient Location: [facility] Current Patient Location: [facility] Accession/Order Number: [id number] Exam Date: 08/16/2023 07:40 Report Date: 08/16/2023 [...] Gross M.D. Signed By:08/16/2348 DD/ 5 TD/TT: Waxer: Essie Aichholz END MATCHER [facility] Final Result documented in this encounter Visit Diagnoses Not on filedocumented in this encounter Care Teams Director Of Hotel Operations Relationship Specialty Start Date End Date Unallocated, Noms Alex, [place] [address] PCP - General Family Medicine 07/17/23 08/16/23 Yuriy Martins MD [address] [place] [address] PCP - General Family Medicine 08/17/23 04/09/24 Essie Ryan NP [address] [place] [address] PCP - [facility] 12/25/23 Yuriy Martins MD [address] [place] [address] PCP - General Family Medicine 05/29/24 Essie Ryan NP [address] [place] [address] Nurse Practitioner Family Medicine 08/17/23 documented as of this encounter
--- OUTSIDE RECORDS SUMMARY | 2025-02-13 10:43 | XMS_ITS | Encounter Summary ---
Author Organization [facility] Address [address] [place] [address] Care Team Providers Care Event Attendant Name Role Phone Yuriy Martins MD Primary Care Provider [phone] Unallocated, Noms Provider Primary Care Provi singh Yuriy Martins MD Primary Care Provider [phone] Essie Ryan RISK CONTROL MANAGER Unavailable [phone] Essie Ryan RISK CONTROL MANAGER Unavailable [phone] Yuriy Martins MD Primary Care Provider [phone] Encounter Details Date Type Department Care Team (Late st Contact Info) Description 07/13/2023 Abstract [facility] [address] [place] [address] Essie Ryan RISK CONTROL MANAGER [address] [place] [address] Social History Tobacco Use Types Packs/Day Years [...] How often do you attend tenriism or nondenominational serv ices? Patient declined 06/14/2023 Do you [...] Recorded Patient Health Questionnaire-2 Score 2 07/13/2023 [facility] of Occupat ional Health - Occupational Stress [...] on filedocumented in this encounter Care Teams Event Attendant Relationship Specialty Start Date End Date Yuriy Martins MD PCP - General Cardiology 11/29/22 07/16/23 Unallocated, Noms MD Alex [address] [place] [address] PCP - General Family Medicine 07/17/23 08/16/23 Yuriy Martins MD [address] [place] [address] PCP - General Family Medicine 08/17/23 04/09/24 Essie Ryan NP [address] [place] [address] PCP - [facility] 12/25/23 Yuriy Martins MD [address] [place] [address] PCP - General Family Medicine 05/29/24 Essie Ryan NP [address] [place] [address] Nurse Practitioner Family Medicine 08/17/23 documented as of this encounter
--- OUTSIDE RECORDS SUMMARY | 2025-02-13 10:43 | XMS_ITS | Encounter Summary ---
Author Organization [facility] Address [address] [place], [place] [address] Care Team Providers Care Pricing/Signage Team Member Name Role Phone CharliEssie ha Fely BAH Primary Care Provider [phone] Adán Torres DO Unavailable [phone] Dany ARDON MD, [facility] Unavailable + Angel Delgado DO Unavailable [phone] Source Comments In the event this information is protected by the Federal Confidentiality of Alcohol and Drug AbusePatient Records regulations: The Federal rules restrict any use of the information to criminally investigate or prosecute any alcohol or drug abuse patient.[facility] Encounter Details Date Type Department Care Team (Late st Contact Info) Description 08/20/2024 Get Medical Advice Orthopaedics [address] [place], [place] [address] Yanni Spring MD [address] [place] [address] Insurance Social History Tobacco Use Types Packs/Day Years Used Date Smoking Tobacco: Never Smokeless Tobacco: Never Alcohol Use Standard Drinks/Week Comments No 0 (1 standard drink = 0.6 oz pur e alcohol) [facility] Utilities Answer Date Recorded In the [...] is lower risk 9 03/15/2024 Data from: https://www.neighborhoodatlas.medicine.[facility].edu/. Last address used for calculation [...] on filedocumented in this encounter Care Teams Pricing/Signage Team Member Relationship Specialty Start Date End Date Essie Ryan CNP PCP - General Family Medicine 07/22/16 Adán Torres DO Obstetrics 07/22/16 Alexis Saenz II, MD [address] [place] [address] Referring Orthopedics 12/13/21 Angel Delgado DO [address] [place] [address] Referring Orthopedics 03/08/24 documented as of this encounter
--- OUTSIDE RECORDS SUMMARY | 2025-02-13 10:43 | XMS_ITS | Encounter Summary ---
Author Organization [facility] Address [address] [place], [place] [address] Care Team Providers Care Mechanical Adjuster Name Role Phone CharliEssie ha Fely BAH Primary Care Provider [phone] Adán Torres DO Unavailable [phone] Dany ARDON MD, [facility] Unavailable + Angel Delgado DO Unavailable [phone] Source Comments In the event this information is protected by the Federal Confidentiality of Alcohol and Drug AbusePatient Records regulations: The Federal rules restrict any use of the information to criminally investigate or prosecute any alcohol or drug abuse patient.[facility] Encounter Details Date Type Department Care Team (Late st Contact Info) Description 01/10/2025 Patient Msg Orthopaedic Surgery [facility] [address] [place] [address] Yanni Spring MD [address] [place], [place] [address] Appointment Request Social History Tobacco Use Types Packs/Day Years Used Date Smoking Tobacco: Never Smokeless Tobacco: Never Alcohol Use Standard Drinks/Week Comments No 0 (1 standard drink = 0.6 oz pur e alcohol) [facility] Utilities Answer Date Recorded In the past [...] any time in the past 12 m [facility], were you homeless or living in a care home (including now)? No 07/01/2024 Area Deprivation Index Answer Date Erik rded National Score (1-100), lower number is lower ri sk 93 03/15/2024 State Score (1-10), lower number is lower risk 9 03/15/2024 Data from: https://www.neighborhoodatlas.medicine.[facility].edu/. Last address used for calculation [...] on filedocumented in this encounter Care Teams Mechanical Adjuster Relationship Specialty Start Date End Date Essie Ryan CNP PCP - General Family Medicine 07/22/16 Adán Torres DO Obstetrics 07/22/16 Alexis Saenz II, MD [address] [place] [address] Referring Orthopedics 12/13/21 Angel Delgado DO [address] [place] [address] [place] [address] Referring Orthopedics 03/08/24 documented as of this encounter
--- OUTSIDE RECORDS SUMMARY | 2025-02-13 10:43 | XMS_ITS | Encounter Summary ---
Author Organization [facility] Address [address] [place] [address] Care Team Providers Care Edger Operator Name Role Phone Yuriy Martins MD Primary Care Provider [phone] Essie Ryan SENIOR PATROL AGENT Unavailable [phone] Essie Ryan SENIOR PATROL AGENT Unavailable [phone] Yuriy Martins MD Primary Care Provider [phone] Encounter Details Date Type Department Care Team [...] How often do you attend caodaism or sikhism serv ices? Patient declined 06/14/2023 Do you [...] Recorded Patient Health Questionnaire-2 Score 0 11/08/2023 [facility] - [facility]ational [...] EDT Narrative 12/27/2023 8:28 PM EDT The [address] [address] Magnetic Resonance Report Signed Patient: STACEY SAHU MR#: [id number] : 1975 Acct:[id number] Age/Sex: 48 / F ADM Date: 12/27/23 Loc: MRI Attending Dr: Angel Delgado M.D. Ordering Physician: Angel Delgado M.D. Date of Service: 12/27/23 Procedure(s): MR lumbar spine wo con Accession Number(s): [id number] cc: Essie Ryan SENIOR PATROL AGENT; Angel Delgado M.D. The [place] [id number] Patient Name: STACEY SAHU MRN: [facility]:[id number] date: 1975 Sex: F Assigned Patient Location: MRI Current Patient Location: MRI Accession/Order Number: [id number] Exam Date: 12/27/2023 07:00 Report Date: 12/27/2023 [...] M.D. Signed By: 12/27/232027 DD/ 24 TD/TT: Skip Tender: Procedure Note Radiology, Radiologist, - 12/27/2023 [place] [address] Magnetic Resonance Report Signed Patient: STACEY SAHU AMR#: [id number] : 1975Acct:[id number] Age/Sex: 48 / FADM Date: 12/27/23 Loc: MRI Attending Dr: Angel Delgado M.D. Ordering Physician: Angel Delgado M.D. Date of Service: 12/27/23 Procedure(s): MR lumbar spine wo con Accession Number(s): [id number] cc: Essie Ryan NP; Angel Delgado M.D. [place] [id number] Patient Name: STACEY SAHU MRN: [id number] date: 1975 Sex: F Assigned Patient Location: MRI Current Patient Location: MRI Accession/Order Number: [id number] Exam Date: 12/27/2023 07:00 Report Date: 12/27/2023 [...] Villalobos M.D. Signed By:12/27/232027 DD/ 24 TD/TT: Skip Tender: Generic External Data Provider [facility] Final Result documented in this encounter Visit Diagnoses Not on filedocumented in this encounter Care Teams Edger Operator Relationship Specialty Start Date End Date Yuriy Martins MD [address] [place] [address] PCP - General Family Medicine 08/17/23 04/09/24 Essie Ryan NP [address] [place] [address] PCP - [facility] 12/25/23 Yuriy Martins MD [address] [place] [address] PCP - General Family Medicine 05/29/24 Essie Ryan NP [address] [place] [address] Nurse Practitioner Family Medicine 08/17/23 documented as of this encounter
--- OUTSIDE RECORDS SUMMARY | 2025-02-13 10:43 | XMS_ITS | Encounter Summary ---
Author Organization [facility] Address [address] [place] [address] Care Team Providers Care Lock Installer Name Role Phone Yuriy Martins MD Primary Care Provider [phone] Essie Ryan ALL AROUND PRESSER Unavailable [phone] Essie Ryan ALL AROUND PRESSER Unavailable [phone] Yuriy Martins MD Primary Care Provider [phone] Encounter Details Date Type Department Care Team [...] declined 06/14/2023 How often do you attend presybeterian or hoahaoism serv ices? Patient declined 06/14/2023 Do you belong to any clubs o r organizations such as presybeterian groups, unions, fraternal or athletic groups, or [...] 0 11/08/2023 [facility] - Occupational Stress Questionnaire [...] EDT Narrative 03/27/2024 3:37 PM EDT The [address] [address] Magnetic Resonance Report Signed Patient: STACEY SAHU MR#: [id number] : 1975 Acct:[id number] Age/Sex: 48 / F ADM Date: 03/26/24 Loc: MRI Attending Dr: Non-Staff Physician Andre Ordering Physician: PhysicianNonAndrewStaff Andre Date of Service: 03/26/24 Procedure(s): MR hip RT wo con Accession Number(s): [id number] cc: Essie Ryan NP; Physician,Non-Staff Andre [place] [id number] Patient Name: STACEY SAHU MRN: [id number] date: 1975 Sex: F Assigned Patient Location: MRI Current Patient Location: Accession/Order Number: [id number] Exam Date: 03/26/2024 14:05 Report Date: 03/27/2024 [...] sacroiliac joint is seen. On the large riaie-jq-mlab images of the pelvis there appear to [...] the right acetabulum. 4. 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 Electronically authenticated by: HARPER VELASQUEZ Date: 03/27/2024 15:34 Dictated By: Harper Velasquez M.D. Signed By: 03/27/24 1537 DD/ 1534 TD/TT: Cost Manager: Procedure Note Radiology, Radiologist, MD - 03/27/2024 [place] [address] Magnetic Resonance Report Signed Patient: STACEY SAHU AMR#: [id number] : 1975Acct:[id number] Age/Sex: 48 / FADM Date: 03/26/24 Loc: MRI Attending Dr: Diandra-Staff Physician Powell Ordering Physician: Ilia Reno M.D. Date of Service: 03/26/24 Procedure(s): MR hip RT wo con Accession Number(s): [id number] cc: Essie Ryan ALL AROUND PRESSER; Ilia Reno M.D. The [place] [address] Patient Name: STACEY SAHU MRN: [id number] date: 1975 Sex: F Assigned Patient Location: MRI Current Patient Location: Accession/Order Number: [id number] Exam Date: 03/26/2024 14:05 Report Date: 03/27/2024 [...] left sacroiliac joint is seen. Onthe large sowwv-ne-lvub images of the pelvis there appear to [...] the right acetabulum. 4. 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 Electronically authenticated by: HARPER VELASQUEZ Date: 03/27/2024 15:34 Dictated By: Harper Velasquez M.D. Signed By:03/27/24 1537 DD/ 1534 TD/TT: Cost Manager: us Generic External Data Provider [facility] Final Result documented in this encounter Visit Diagnoses Not on filedocumented in this encounter Care Teams Lock Installer Relationship Specialty Start Date End Date uYriy Martins MD [address] [place] [address] PCP - General Family Medicine 08/17/23 04/09/24 Esise Ryan NP [address] [place] [address] PCP - [facility] 12/25/23 Yuriy Martins MD [address] [place] [address] PCP - General Family Medicine 05/29/24 Essie Ryan NP [address] [place] [address] Nurse Practitioner Family Medicine 08/17/23 documented as of this encounter
--- OUTSIDE RECORDS SUMMARY | 2025-02-13 10:43 | XMS_ITS | Encounter Summary ---
Author Organization [facility] Address [address] [place] [address] Care Team Providers Care Grave Cleaner Name Role Phone Yuriy Martins MD Primary Care Provider [phone] Essie Ryan TAX MANAGER Unavailable [phone] Essie Ryan TAX MANAGER Unavailable [phone] Yuriy Martins MD Primary Care Provider [phone] Encounter Details Date Type Department Care Team (Late st Contact Info) Description 02/29/2024 Abstract [facility] [address] [place] [address] Essie Ryan NP [address] [place] [address] Social History Tobacco Use Types Packs/Day Years [...] declined 06/14/2023 How often do you attend muslim or scientology serv ices? Patient declined 06/14/2023 Do you belong to any clubs o r organizations such as muslim groups, unions, fraternal or athletic groups, or [...] Score 0 11/08/2023 [facility] of Occupat ional Health - Occupational [...] on filedocumented in this encounter Care Teams Grave Cleaner Relationship Specialty Start Date End Date Yuriy Martins MD [address] [place] [address] PCP - General Family Medicine 08/17/23 04/09/24 Essie Ryan NP [address] [place] [address] PCP - [facility] 12/25/23 Yuriy Martins MD [address] [place] [address] PCP - General Family Medicine 05/29/24 Essie Ryan NP [address] [place] [address] Nurse Practitioner Family Medicine 08/17/23 documented as of this encounter
--- OUTSIDE RECORDS SUMMARY | 2025-02-13 10:43 | XMS_ITS | Clinical Summary ---
Author Organization [facility] Address [address] [place] [address] Care Team Providers Care Rocket Test Fire Worker Name Role Phone Essie Ryan COAL CONVEYOR OPERATOR Unavailable [phone] Essie Ryan NP Unavailable Yuriy Martins MD Primary Care Provider [phone] Allergies Active Allergy Reactions Criticality Noted Date [...] Encounters Date Type Department Care Team Description 02/11/2025 Clinisync Result Encounter [facility] External Department Unsolicited Provider, Generic External Data 01/15/2025 Orders Only [facility] [address] [place] [address] Essie Ryan NP S/P total right hip arthroplasty (Primary Dx); Chronic right hip pain 01/10/2025 Orders Only [facility] [address] [place] [phone] Unallocated, Noms MD Alex 01/09/2025 Orders Only [facility] [address] [place] [address] Essie Ryan NP Chronic right hip pain (Primary Dx) 01/01/2025 1:00 PM EDT Office Visit [facility] [address] [place] [address] Essie Ryan NP Chronic right hip pain (Primary Dx); NIRMALA (obstructive sleep apnea); Dizziness and giddiness; Primary hypertension ; Morbid (severe) obesity due to excess calories ([facility]); Bipolar 1 disorder ([facility]); Anxiety; Elevated glucose level; PAH (pulmonary artery hypertension) ([facility]); Bipolar disorder, unspecified ([facility]); Mixed hyperlipidemia ; Gastroesophageal reflux disease, unspecified whether esophagitis present 01/01/2025 Bamboo flowsheet [facility] [address] [place] [address] Essie Ryan NP 12/25/2024 Travel 11/28/2024 Clinisync Result Encounter [facility] External Department Unsolicited Provider, Generic External Data 11/25/2024 Clinisync Result Encounter [facility] External Department Unsolicited Provider, Generic External Data [...] week 08/28/2024 How often do you attend yarsani or amish serv ices? Never 08/28/2024 Do you belong [...] Recorded Patient Health Questionnaire-2 Score 0 11/08/2023 [facility] - Occupational [...] in a jail (including now)? No 06/14/2023 Housing Stability Vital Sign Answer Williams e Recorded In the last 12 months, was t here a time when you were not able to pay the mortgage or rent on time? No 08/28/2024 In the past 12 months, how m any times have you moved where you were living? 0 08/28/2024 At any time in the past 12 m onths, were you homeless or living in a jail (including now)? No 08/28/2024 Comments Unknown Sex [...] Date/Time Associated Diagnosis Comments XR ABDOMEN 1V 02/11/2025 12:36 PM EDT POCT GLYCOSYLATED HEMOGLOBIN (HGB A1C) Routine 01/01/2025 [...] Recently Relevant to Health Maintenance Results * XR ABDOMEN 1V (02/11/2025 12:36 PM EDT) Only the most recent of2 resultswithin the time period is included. Anatomical Region Laterality Modality Other 02/11/2025 12:3 6 PM EDT Narrative 02/11/2025 12:39 [place] [address] XRay Report Signed Patient: STACEY FIGUEROA MR#: [id number] : 1975 Acct:[id number] Age/Sex: 49 / F ADM Date: 02/11/25 Loc: RAD Attending Dr: Jose Garcia M.D. Ordering Physician: Jose Garcia M.D. Date of Service: 02/11/25 Procedure(s): XR abdomen 1V Accession Number(s): [id number] cc: Essie Ryan COAL CONVEYOR OPERATOR; Jose Garcia M.D. The [place] [address] Patient Name: STACEY FIGUEROA MRN: [id number] date: 1975 Sex: F Assigned Patient Location: RAD Current Patient Location: RAD Accession/Order Number: [id number] Exam Date: 02/11/2025 12:30 Report Date: 02/11/2025 12:36 At the request of: JOSE GARCIA MD Procedure: XR abdomen 1V Single [...] Iniguez M.D. 02/11/2025 12:36 PM Dictation Location: [place] [address] Electronically authenticated by: [id number] Y Date: 02/11/2025 12:36 Dictated By: Vipin Iniguez D.O. Signed By: 02/11/25 1239 DD/ 1236 TD/TT: Manager Laboratory: Procedure Note Radiology, Radiologist, - 02/11/2025 [place] [address] XRay Report Signed Patient: STACEY FIGUEROA AMR#: [id number] : 1975Acct:[id number] Age/Sex: 49 / FADM Date: 02/11/25 Loc: RAD Attending Dr: Jose Garcia M.D. Ordering Physician: Jose Garcia M.D. Date of Service: 02/11/25 Procedure(s): XR abdomen 1V Accession Number(s): [id number] cc: Essie Ryan COAL CONVEYOR OPERATOR; Jose Garcia M.D. The [place] [address] Patient Name: STACEY FIGUEROA MRN: [id number] date: 1975 Sex: F Assigned Patient Location: RAD Current Patient Location: RAD Accession/Order Number: [id number] Exam Date: 02/11/2025 12:30 Report Date: 02/11/2025 12:36 At the request of: JOSE GARCIA MD Procedure: XR abdomen 1V Single [...] POSTSURGICAL CHANGES: Right hip arthroplasty. Right abdominal surgicalclips stable 3, ring-shaped radiopaque structures in the right lower abdomen. XR/XR abdomen 1V IMPRESSION: Left nephrolithiasis measuring up to 4 mm Impression dictated by: Vipin Iniguez M.D. 02/11/2025 12:36 PM Dictation Location: [place] Electronically authenticated by: [id number] Y Date: 2:36 Dictated By: Vipin Iniguez D.O. Signed By:02/11/25 1239 DD/ 1236 TD/TT: Manager Laboratory: Generic External Data Provider [facility] Final Result * POCT glycosylated hemoglobin (Hb A1C) docked device (01/01/2025 1:22 PM EDT) Hemoglobin A1C 5.6 Blood Venous blood specimen / Unknown 01/01/2025 1:22 PM EDT Essie Ryan NP POINT OF CARE TEST ENTER/EDIT O RDERABLES Final Result * SRMCOH PROTHROMBIN TIME INR [...] Data Provider CLINISYNC F inal Result [facility] * CCF APTT (11/25/2024 1:45 PM EDT) PARTIAL THROMBOPLASTIN TIME 24.5 22.3 - 36.2 sec TB 11/25/2024 1:45 PM EDT 11/25/2024 1:48 PM EDT Narrative MORALES - 11/25/2024 2:13 PM EDT us Generic External Data Provider [facility] F inal Result [facility] * (ABNORMAL) ALL CBC WITH AUTO DIFF (11/25/2024 1:45 PM EDT) Pathologist [facility] TB WBC 7.6 4.0 - 11.0 10 3/uL TBH TBH RBC 4.34 4.20 - 5.40 10 6/uL TBH TBH HGB 12.4 12.0 - 16.0 g/dL TB TB HCT 38.2 36.0 - 48.0 % TBH TBH MCV 88.0 81.0 - 99.0 fL TBH TBH MCH 28.6 26.7 - 34.0 pg TBH TBH MCHC 32.5 29.9 - 35.2 g/dL TB TBH RDW 13.1 11.0 - 15.0 % [...] CLINISYNC F inal Result Performing Organization Address [facility] Co de Phone Number CLINJEFFNC TBH * (ABNORMAL) ALL BASIC METABOLIC PANEL [...] 0.55 - 1.02 mg/dL TBH TBH EGFR-AF PRYDEINIG >60 >=60 mL/min/1.7 3m 2 TBH TBH EGFR-NON AF PRYDEINIG >60 >=60 mL/min/1.7 3m 2 TBH BUN CREATININE RATIO 18.7 TBH CALCIUM 9.3 8.5 - 10.1 mg/dL TBH 11/25/2024 1:45 PM EDT 11/25/2024 1:48 PM EDT Narrative CLINISYNC - 11/25/2024 2:08 PM EDT Generic External Data Provider CLINISYNC F inal Result Performing Organization Address [facility] Co de Phone Number MORALES [facility] * MM TOMOSYNTHESIS SCREENING BI (10/04/2024 12:29 PM EDT) Anatomical Region Laterality Modality Other 10/04/2024 12:2 9 PM EDT Narrative 10/04/2024 12:30 [place] [address] Mammography Report Signed Patient: STACEY FIGUEROA MR#: [id number] : 1975 Acct:[id number] Age/Sex: 49 / F ADM Date: 10/04/24 Loc: MAMMO Attending Dr: Essie Ryan NP Ordering Physician: Essie Ryan NP Results: Date of Service: 10/04/24 Follow Up: Procedure(s): MM tomosynthesis screening BI Accession Number(s): [id number] cc: Essie Ryan NP Patient Name: STACEY FIGUEROA MR#: [id number] : 1975 Exam Date: 10/04/2024 Ordering Doctor: NIURAK Ryan CNP RADIOLOGY REPORT PROCEDURE: MM TOMOSYNTHESIS [...] at age 56. LOCATION: [facility] BREAST COMPOSITION: There are scattered [...] Signed By: 10/04/24 1230 DD/ 1229 TD/TT: Manager Laboratory: Procedure Note Radiology, Radiologist, - 10/04/2024 [place] [address] Mammography Report Signed Patient: STACEY FIGUEROA AMR#: [id number] : 1975Acct:[id number] Age/Sex: 49 / FADM Date: 10/04/24 Loc: MAMMO Attending Dr: Essie Ryan NP Ordering Physician: Essie Ryan NPResults: Date of Service: 10/04/24Follow Up: Procedure(s): MM tomosynthesis screening BI Accession Number(s): [id number] cc: Essie Ryan NP Patient Name: STACEY FIGUEROA MR#: [id number] : 1975 Exam Date: 10/04/2024 Ordering Doctor: NIURKA Ryan SOLUTIONS OPERATOR RADIOLOGY REPORT PROCEDURE: MM TOMOSYNTHESIS SCREENING BI COMPARISON: MM TOMOSYNTHESIS SCREENING BI, 08/16/2023. MG MAMM [id number] GRACIE CAD, 02/09/2022. MG MAMM SCREEN 3D [...] at age 56. LOCATION: [facility] BREAST COMPOSITION: There are scattered [...] D.O. Signed By:10/04/24 1230 DD/ 1229 TD/TT: Manager Laboratory: Essie Ryan NP [facility] Final Result from Last 3 Months or Most Recently Relevant to Health Maintenance Insurance [employer] MEDICAID [place] Single Touch Systems Care Teams Rocket Test Fire Worker Relationship Specialty Start Date End Date Essie Ryan NP [address] [place] [address] PCP - [facility] 12/25/23 Yuriy Martins MD [address] [place] [address] PCP - General Family Medicine 05/29/24 Essie Ryan NP [address] [place] [address] Nurse Practitioner Family Medicine 08/17/23
--- OUTSIDE RECORDS SUMMARY | 2025-02-13 10:43 | XMS_ITS | Encounter Summary ---
Author Organization [facility] Address [address] [place] [address] Care Team Providers Care Plant And Instrument Engineer Name Role Phone Charlidilcia Essie ARCHITECTURAL SALES CONSULTANT Unavailable [phone] Essie Ryan ARCHITECTURAL SALES CONSULTANT Unavailable Yuriy Martins MD Primary Care Provider [phone] Encounter Details Date Type Department Care Team (Late st Contact Info) Description 01/10/2025 Orders Only [facility] [address] [place] [address] Unallocated, Noms Provider, [address] [place] [address] Social History Tobacco Use Types [...] week 08/28/2024 How often do you attend orthodox or scientology serv ices? Never 08/28/2024 Do you belong to any clubs o r organizations such as orthodox groups, unions, fraternal or athletic groups, or [...] Recorded Patient Health Questionnaire-2 Score 0 11/08/2023 [facility]ational [...] in a usp (including now)? No 06/14/2023 Housing Stability Vital Sign Answer Williams e Recorded In the last 12 months, was t here a time when you were not able to pay the mortgage or rent on time? No 08/28/2024 In the past 12 months, how m any times have you moved where you were living? 0 08/28/2024 At any time in the past 12 m [facility], were you homeless or living in a usp (including now)? No 08/28/2024 Comments Unknown Sex [...] on filedocumented in this encounter Care Teams Plant And Instrument Engineer Relationship Specialty Start Date End Date Essie Ryan NP [address] [place] [address] PCP - [facility] 12/25/23 Yuriy Martins MD [address] [place] [address] PCP - General Family Medicine 05/29/24 Essie Ryan NP [address] [place] [address] Nurse Practitioner Family Medicine 08/17/23 documented as of this encounter
--- OUTSIDE RECORDS SUMMARY | 2025-02-13 10:43 | XMS_ITS | Encounter Summary ---
Author Organization [facility] Address [address] [place] [address] Care Team Providers Care Solar Photovoltaic Crew Lead Name Role Phone Yuriy Martins MD Primary Care Provider [phone] Essie Ryan POLICE MANAGER Unavailable [phone] Essie Ryan POLICE MANAGER Unavailable [phone] Yuriy Martins MD Primary Care Provider [phone] Reason for Visit * Reason Comments Med Refill Encounter Details Date Type Department Care Team (Late st Contact Info) Description 09/08/2023 Refill [facility] [address] [place] [address] Essie Ryan, POLICE MANAGER [address] [place] [address] Mixed hyperlipidemia (Primary Dx) Social History Tobacco [...] How often do you attend yazdanism or methodist serv ices? Patient declined 06/14/2023 Do you [...] Recorded Patient Health Questionnaire-2 Score 2 07/13/2023 [facility] ional [...] hyperlipidemia documented in this encounter Care Teams Solar Photovoltaic Crew Lead Relationship Specialty Start Date End Date Yuriy Martins MD [address] [place] [address] PCP - General Family Medicine 08/17/23 04/09/24 Essie Ryan NP [address] [place] [address] PCP - [facility] 12/25/23 Yuriy Martins MD [address] [place] [address] PCP - General Family Medicine 05/29/24 Essie Ryan NP [address] [place] [address] Nurse Practitioner Family Medicine 08/17/23 documented as of this encounter
--- OUTSIDE RECORDS SUMMARY | 2025-02-13 10:43 | XMS_ITS | Encounter Summary ---
Author Organization [facility] Address [address] [place], [place] [address] Care Team Providers Care Intelligence Group Supervisor Name Role Phone CharliEssie ha Fely BAH Primary Care Provider [phone] Adán Torres DO Unavailable [phone] Dany ARDON MD, [facility] Unavailable + Angel Delgado DO Unavailable [phone] Source Comments In the event this information is protected by the Federal Confidentiality of Alcohol and Drug AbusePatient Records regulations: The Federal rules restrict any use of the information to criminally investigate or prosecute any alcohol or drug abuse patient.[facility] Reason for Visit * Reason Comments new order Encounter Details Date Type Department Care Team (Late st Contact Info) Description 06/24/2024 Telephone Internal Medicine [place] [address] [place] [address] Yanni Spring MD [address] [place] [address] new order Social History Tobacco Use Types [...] is lower risk 9 03/15/2024 Data from: https://www.neighborhoodatlas.medicine.[place]/. Last address used for calculation [address] [...] wet signature and mobilty dx code. Fax- [phone] documented in this encounter Plan of Treatment Not on file documented as of this encounter Visit Diagnoses Not on filedocumented in this encounter Care Teams Intelligence Group Supervisor Relationship Specialty Start Date End Date Essie Ryan, SENIOR COMMISSIONS ANALYST PCP - General Family Medicine 07/22/16 Adán Torres DO Obstetrics 07/22/16 Alexis Saenz II, MD [address] [facility] [place] [address] Referring Orthopedics 12/13/21 [place] [address] [place] [address] Referring Orthopedics 03/08/24 documented as of this encounter
--- OUTSIDE RECORDS SUMMARY | 2025-02-13 10:44 | XMS_ITS | Encounter Summary ---
Author Organization [facility] Address [address] [place], [place] [address] Care Team Providers Care Toe Stripper Name Role Phone CharliEssie ha Fely BAH Primary Care Provider [phone] Adán Torres DO Unavailable [phone] Dany ARDON MD, [facility] Unavailable + Angel Delgado DO Unavailable [phone] Source Comments In the event this information is protected by the Federal Confidentiality of Alcohol and Drug AbusePatient Records regulations: The Federal rules restrict any use of the information to criminally investigate or prosecute any alcohol or drug abuse patient.[facility] Encounter Details Date Type Department Care Team (Late st Contact Info) Description 03/20/2024 Patient Msg Orthopaedic Surgery [facility] [address] [place] [address] Yanni Spring MD [address] [place], [place] [phone] Appointment Request Social History Tobacco Use Types [...] is lower risk 9 03/15/2024 Data from: https://www.neighborhoodatlas.[facility]/. Last address used for calculation [address] [...] on filedocumented in this encounter Care Teams Toe Stripper Relationship Specialty Start Date End Date Essie Ryan, CAR RENTAL DELIVERER PCP - General Family Medicine 07/22/16 Adán Torres DO Obstetrics 07/22/16 Alexis Saenz II, MD [address] [place] [address] Referring Orthopedics 12/13/21 Angel Delgado DO [address] [place] [address] Referring Orthopedics 03/08/24 documented as of this encounter
--- OUTSIDE RECORDS SUMMARY | 2025-02-13 10:44 | XMS_ITS | Encounter Summary ---
Author Organization [facility] tem Address [id number] [address] [place] [address] Care Team Providers Care Furnace Maintenance Name Role Phone Essie Ryan APRN-BONDACTOR MACHINE OPERATOR Primary Care Provider Encounter Details Date Type Department Care Team (Late st Contact Info) Description 05/01/2024 Telephone [facility] - [address] [place] [address] [place] [address] [place] [address] [address] [place] [address] Social History Tobacco Use Types Packs/Day Years [...] on filedocumented in this encounter Care Teams Furnace Maintenance Relationship Specialty Start Date End Date Essie Ryan, LAY-BONDACTOR MACHINE OPERATOR PCP - General Nurse Practitioner 10/03/18 documented as of this encounter
--- OUTSIDE RECORDS SUMMARY | 2025-02-13 10:44 | XMS_ITS | Encounter Summary ---
Author Organization [facility] Address [address] [place] [address] Care Team Providers Care Facilities Specialist Name Role Phone Essie Ryan REAL ESTATE APPRAISER SUPERVISOR Unavailable [phone] Essie Ryan NP Unavailable [phone] Yuriy Martins MD Primary Care Provider [phone] Encounter Details Date Type Department Care Team (Late st Contact Info) Description 02/11/2025 Clinisync Result Encounter [facility] External [...] week 08/28/2024 How often do you attend advent or tenriism serv ices? Never 08/28/2024 Do you belong [...] Recorded Patient Health Questionnaire-2 Score 0 11/08/2023 [facility] ional Health - [...] a nursing home (including now)? No 06/14/2023 Housing Stability Vital Sign Answer Williams e Recorded In the last 12 months, was t here a time when you were not able to pay the mortgage or rent on time? No 08/28/2024 In the past 12 months, how m any times have you moved where you were living? 0 08/28/2024 At any time in the past 12 m [facility], were you homeless or living in a nursing home (including now)? No 08/28/2024 Comments Unknown Sex [...] XR ABDOMEN 1V 02/11/2025 12:36 PM EDT documented in this encounter Results * XR ABDOMEN 1V (02/11/2025 12:36 PM EDT) Anatomical Region Laterality Modality Other 02/11/2025 12:3 6 PM EDT Narrative 02/11/2025 12:39 PM EDT The [address] [address] XRay Report Signed Patient: STACEY SAHU MR#: [id number] : 1975 Acct:[id number] Age/Sex: 49 / F ADM Date: 02/11/25 Loc: [facility] Attending Dr: Lynn Garcia M.D. Ordering Physician: Lynn Garcia M.D. Date of Service: 02/11/25 Procedure(s): XR abdomen 1V Accession Number(s): [id number] cc: Essie Ryan REAL ESTATE APPRAISER SUPERVISOR; Lynn Garcia M.D. The [address] [address] Patient Name: STACEY SAHU MRN: [id number] date: 1975 Sex: F Assigned Patient Location: [facility] Current Patient Location: [facility] Accession/Order Number: [id number] Exam Date: 02/11/2025 12:30 Report Date: 02/11/2025 [...] up to 4 mm Impression dictated by: Vpiin Iniguez M.D. 02/11/2025 12:36 PM Dictation Location: [place] [address] Electronically authenticated by: [id number] Y Date: 02/11/2025 12:36 Dictated By: Vipin Iniguez D.O. Signed By: 02/11/25 1239 DD/ 1236 TD/TT: Research Associate Professor: Procedure Note Radiology, Radiologist, - 02/11/2025 The [place] [id number] XRay Report Signed Patient: STACEY SAHU AMR#: [id number] : 1975Acct:[id number] Age/Sex: 49 / FADM Date: 02/11/25 Loc: RAD Attending Dr: Lynn Garcia M.D. Ordering Physician: Lynn Garcia M.D. Date of Service: 02/11/25 Procedure(s): XR abdomen 1V Accession Number(s): [id number] cc: Essie Ryan REAL ESTATE APPRAISER SUPERVISOR; Lynn Garcia M.D. [facility] [address] [place] [id number] Patient Name: STACEY SAHU MRN: [id number] date: 1975 Sex: F Assigned Patient Location: [facility] Current Patient Location: [facility] Accession/Order Number: [id number] Exam Date: 02/11/2025 12:30 Report Date: 02/11/2025 [...] Iniguez M.D. 02/11/2025 12:36 PM Dictation Location: [place] [address] Electronically authenticated by: [id number] Y Date: 2:36 Dictated By: Vipin Iniguez D.O. Signed By:02/11/25 1239 DD/ 1236 TD/TT: Research Associate Professor: us Generic External Data Provider [facility] Final Result documented in this encounter Visit Diagnoses Not on filedocumented in this encounter Care Teams Facilities Specialist Relationship Specialty Start Date End Date Essie Ryan NP [address] [place] [address] PCP - [facility] 12/25/23 Yuriy Martins MD [address] [place] [address] PCP - General Family Medicine 05/29/24 Essie Ryan NP [address] [place] [address] Nurse Practitioner Family Medicine 08/17/23 documented as of this encounter
--- OUTSIDE RECORDS SUMMARY | 2025-02-13 10:44 | XMS_ITS | Clinical Summary ---
Author Organization [email or web address] tem Address [facility] [address] [place] [address] Care Team Providers Care Engineer Rf Deployment Name Role Phone Shelby Essie Dolan APRN-MOLD DESIGNER Primary Care Provider Allergies Active Allergy Reactions [...] 09/06/2025 09/06/2024 Medical Devices Implanted Type Area Channel Marketing Coordinator Device Identifier Shelf Expiration Date Model / Serial / Lot Generator Nrstm - [id number] - [id number] Implanted:Qty: 1 on 08/22/2024 by Tevin Esquivel MD at [facility] Generator Right: Chest [employer] 03/18/2027 [id number] / [id number] / NA Lead Ns Respiratory - [id number] - [id number] Implanted:Qty: 1 on 08/22/2024 by Tevin Esquivel MD at [facility] Implant Lead Right: Chest [employer] 03/15/2027 4340 / [id number] / NA Lead Nrstm Inspr 3 Elect Cuf Tnl Arnoldo Strl Lf - [id number] - [id number] Implanted:Qty: 1 on 08/22/2024 by Tevin Esquivel MD at [facility] Neuro Stimulator Right: Neck [employer] 10/06/2026 4063 / [id number] / [place] [address] [place] [address] [facility] Care Teams Engineer Rf Deployment Relationship Specialty Start Date End Date Essie Ryan APRN-MOLD DESIGNER PCP - General Nurse Practitioner 10/03/18
--- OUTSIDE RECORDS SUMMARY | 2025-02-13 10:44 | XMS_ITS | Clinical Summary ---
Author Organization [facility] Address [address] [place] [address] Care Team Providers Care Dress Draper Name Role Phone Essie Ryan MD Primary Care Provider [phone] Allergies Active Allergy Reactions Criticality Noted Date [...] Care Team Description 11/15/2024 Telephone [facility] at [address] [address] Javid Martínez, [facility] Sleep Study; Referral from Last 3 Months Immunizations Immunization Administration [...] Description 03/20/2025 1:00 PM EDT Office Visit [facility] [address] [place] [phone] Bonifacio Cisneros MD [address] [place] [phone] Health Maintenance Due Date Last Done Comments CT Colonography 1976 FIT-DNA 1976 FIT 1976 FOBT 1976 Sigmoidoscopy 1976 Depression Screening 1988 Hepatitis B Vaccines (1 of 3 - 19+ 3-dose series) 1995 Pap Smear 1997 Adult Tetanus 1998 Cervical Cancer Screening 2006 HPV/Cotest 2006 Mammogram 2016 COVID-19 Vaccine (2023-2 5 season) 2024 Influenza Vaccine (#1) 2025 [...] patient's age to complete this topic Insurance [employer] Care Teams Dress Draper Relationship Specialty Start Date End Date Essie Ryan MD [address] [place] [address] PCP - General 08/29/23
--- OUTSIDE RECORDS SUMMARY | 2025-02-13 10:44 | XMS_ITS | Encounter Summary ---
Author Organization [facility] Address [address] [place] [address] Care Team Providers Care Software Engineer Name Role Phone Yuriy Martins MD Primary Care Provider [phone] Unallocated, Noms Provider Primary Care Provi singh Yuriy Martins MD Primary Care Provider [phone] AicEssie ha TRIMMING INSPECTOR Unavailable [phone] Essie Ryan TRIMMING INSPECTOR Unavailable [phone] Yuriy Martins MD Primary Care Provider [phone] Encounter Details Date Type Department Care Team (Late st Contact Info) Description 03/24/2021 Abstract [facility] [address] [place] [address] Zarina Clarke, [facility] [address] [place] [address] Social History Tobacco Use Types Packs/Day Years [...] on filedocumented in this encounter Care Teams Software Engineer Relationship Specialty Start Date End Date Yuriy Martins MD PCP - General Cardiology 11/29/22 07/16/23 Unallocated, Noms MD Alex [address] [place] [address] PCP - General Family Medicine 07/17/23 08/16/23 Yuriy Martins MD [address] [place] [address] PCP - General Family Medicine 08/17/23 04/09/24 Essie Ryan NP [address] [place] [address] PCP - [facility] 12/25/23 Yuriy Martins MD [address] [place] [phone] PCP - General Family Medicine 05/29/24 Essie Ryan NP [address] [place] [address] Nurse Practitioner Family Medicine 08/17/23 documented as of this encounter
--- OUTSIDE RECORDS SUMMARY | 2025-02-13 10:44 | XMS_ITS | Encounter Summary ---
Author Organization [employer] [facility] tem Address [id number] [address] [place] [address] Care Team Providers Care Embedder Name Role Phone Essie Ryan APRN-[facility] Primary Care Provider Reason for Referral * Misc (Routine) - Pending Review Specialty Diagnoses / Procedures Referred By Contac t Referred To Contact Diagnoses NIRMALA (obstructive sleep apnea) Procedures Polysomnography 4 or more parameters with PAP titration Trinh Eduardo MD [address] [place] [address] [address] [place] [address] Phone: tel: fax: Referral ID Status Reason Start Date Expiration Date V isits Requested Visits Authorized [id number] Pending Review 10/30/2024 10/30/2025 1 1 Encounter Details Date Type Department Care Team (Late st Contact Info) Description 10/30/2024 Orders Only [facility] Department of [address] [place] [address] Trinh Eduardo MD [address] [place] [address] [address] [place] [address] NIRMALA (obstructive sleep apnea) (Primary [...] (pediatric) documented in this encounter Care Teams Embedder Relationship Specialty Start Date End Date Essie Ryan, DIRECTOR REPORT-BIOLOGY TEACHER PCP - General Nurse Practitioner 10/03/18 documented as of this encounter
--- OUTSIDE RECORDS SUMMARY | 2025-02-13 10:44 | XMS_ITS | Encounter Summary ---
Author Organization [facility] tem Address [id number] [address] [place] [address] Care Team Providers Care Food Safety Coordinator Name Role Phone CharliEssie ha Magdaleno PRINTED CIRCUIT BOARD PANELS DEBURRER-FURNITURE PACKER Primary Care Provider Encounter Details Date Type Department Care Team (Late st Contact Info) Description 03/12/2024 Orders Only [facility] [address] [place] [address] External, Scanning Provider Social History [...] on filedocumented in this encounter Care Teams Food Safety Coordinator Relationship Specialty Start Date End Date Essie Ryan, PRINTED CIRCUIT BOARD PANELS DEBURRER-FURNITURE PACKER PCP - General Nurse Practitioner 10/03/18 documented as of this encounter
--- OUTSIDE RECORDS SUMMARY | 2025-02-13 10:44 | XMS_ITS | Encounter Summary ---
Author Organization [facility] Address [facility] [place] [address] Care Team Providers Care Painter Railroad Car Name Role Phone CharliandersonaraceliAlemkandi Geiger CNP Primary Care Provider Adán Torres DO Unavailable [phone] Dany ARDON MD, [facility] Unavailable + Angel Delgado DO Unavailable [phone] Source Comments In the event this information is protected by the Federal Confidentiality of Alcohol and Drug AbusePatient Records regulations: The Federal rules restrict any use of the information to criminally investigate or prosecute any alcohol or drug abuse patient.[facility] Encounter Details Date Type Department Care Team (Late st Contact Info) Description 07/31/2023 Patient [facility] Internal Medicine [address] [place] [place] [address] Provider, Meeta IBD VIRTUAL EDUCATION for [...] N ot on file 07/24/2022 Data from: https://www.neighborhoodatlas.medicine.[facility]/. Last address used for calculation [address] [...] on filedocumented in this encounter Care Teams Painter Railroad Car Relationship Specialty Start Date End Date Essie Ryan, AUTO WHEEL ALIGNMENT SPECIALIST PCP - General Family Medicine 07/22/16 Adán Torres DO Obstetrics 07/22/16 Alexis Saenz II, MD [address] [place], [place] [id number] Referring Orthopedics 12/13/21 Angel Delgado DO [facility] [place] [address] Referring Orthopedics 03/08/24 documented as of this encounter
--- OUTSIDE RECORDS SUMMARY | 2025-02-13 10:44 | XMS_ITS | Encounter Summary ---
Author Organization [facility] tem Address [id number] [address] [place] [address] Care Team Providers Care Gun Club Manager Name Role Phone CharlimatsienaEssie charles Magdaleno CHUN-DAUB COLOR MIXER Primary Care Provider Encounter Details Date Type Department Care Team (Late st Contact Info) Description 09/11/2023 Orders Only [facility] [address] [place] [phone] Ref Prov, [place] [address] Social History Tobacco Use Types Packs/Day Years [...] on filedocumented in this encounter Care Teams Gun Club Manager Relationship Specialty Start Date End Date Essie Ryan, STEEL LOADER-DAUB COLOR MIXER PCP - General Nurse Practitioner 10/03/18 documented as of this encounter
--- OUTSIDE RECORDS SUMMARY | 2025-02-13 10:44 | XMS_ITS | Encounter Summary ---
Author Organization [facility] Address [address] [place], [place] [address] Care Team Providers Care Traveling Crane Operator Name Role Phone Charlimataishwarya Essie Geiger CNP Primary Care Provider [phone] Adán Torres DO Unavailable [phone] Dany ARDON MD, [facility] Unavailable + Angel Delgado DO Unavailable [phone] Source Comments In the event this information is protected by the Federal Confidentiality of Alcohol and Drug AbusePatient Records regulations: The Federal rules restrict any use of the information to criminally investigate or prosecute any alcohol or drug abuse patient.[facility] Encounter Details Date Type Department Care Team (Late st Contact Info) Description 05/24/2024 Patient Msg Pre Anesthesia [address] [place] [address] Provider, [facility] Appointment Social [...] risk 9 03/15/2024 Data from: https://www.neighborhoodatlas.medicine.[facility]/. Last address used for calculation [...] on filedocumented in this encounter Care Teams Traveling Crane Operator Relationship Specialty Start Date End Date Essie Ryan CNP PCP - General Family Medicine 1/27/17 Adán Torres DO Obstetrics 07/22/16 Alexis Saenz II, MD [address] [place] [address] Referring Orthopedics 12/13/21 Angel Delgado DO [address] [place] [address] Referring Orthopedics 03/08/24 documented as of this encounter
--- OUTSIDE RECORDS SUMMARY | 2025-02-13 10:48 | XMS_ITS | CCD ---
Author Organization [facility] Care Team Providers Care Safety Coordinator Name Role Phone PHYSICIAN, DEFAULT Unavailable Unavailable PHYSICIAN, DEFAULT Unavailable Unavailable AICHHOLZ, ESSIE Unavailable Unavailable PHYSICIAN, DEFAULT Unavailable Unavailable PHYSICIAN, DEFAULT Unavailable Unavailable AICHHOLZ, ESSIE Unavailable Unavailable PHYSICIAN, DEFAULT Unavailable Unavailable PHYSICIAN, DEFAULT Unavailable Unavailable CHARLIHJACOB ESSIE Unavailable Unavailable Alexis Saenz II Unavailable Aichsienaz Essie BAH Primary Care Provider [phone] Adán Torres Unavailable Dany ARDON MD, Robert M Unavailable Adán Torres DO Unavailable ESSIE RYAN Primary Care Physician [phone] Aichholz Essie BAH Primary Care Provider Adán Torres DO Unavailable [phone] Dany ARDON MD, Robert M Unavailable CAN MONROE Attending Unavailable CAN MONROE Consulting Unavailable AICHHOLKamila, NIURKA ESSIE Primary Care Unavailable CAN MONROE Admitting Unavailable ANDREW ., DR MARKO Stafford Admitting Unavailable ANDREW ., DR MARKO Stafford Attending Unavailable AICHHOLZ, YARD ASSISTANT ESSIE Primary Care Unavailable ARTURO VANEGAS Consulting Unavailable ANDREW ., DR MARKO Stafford Attending Unavailable MORALES ., DR MARKO Stafford Consulting Unavailable AICHHOLKamila, YARD ASSISTANT ESSIE Primary Care Unavailable ANDREW ., DR MARKO Stafford Admitting Unavailable ADRIANNA JIMENEZ Attending Unavailable ADRIANNA JIMENEZ Consulting Unavailable ADRIANNA JIMENEZ Admitting Unavailable AICHHOLZ, YARD ASSISTANT ESSIE Primary Care Unavailable PAULETTE PHIPPS Consulting Unavailable [facility]OLZ, [facility] Unavailable GARCIA ., DR BAILEY Attending Unavailable GARCIA ., DR BAILEY Consulting Unavailable GARCIA ., DR BAILEY Admitting Unavailable WEST, DR PAULETTE León Consulting Unavailable MORALES ., DR MARKO Stafford Admitting Unavailable MORALES ., DR MARKO Stafford Attending Unavailable MORALES ., DR MARKO Stafford Consulting Unavailable [facility] Primary Care Unavailable DELANEY ., ARTURO Consulting Unavailable MORALES ., DR MARKO Stafford Admitting Unavailable MORALES ., DR MARKO Stafford Attending Unavailable AICHOL, [facility] Primary Care Unavailable YOBANY ., DR RASMUSSEN Attending Unavailable AICHOLZ, [facility] Primary Care Unavailable YOBANY ., DR RASMUSSEN Admitting Unavailable WEST, DR PAULETTE León Consulting Unavailable YOBANY ., DR RASMUSSEN Consulting Unavailable [facility], [facility] Primary Care Unavailable GARCIA ., DR BAILEY Admitting Unavailable GARCIA ., DR BAILEY Attending Unavailable GARCIA ., DR BAILEY Consulting Unavailable ZIEBER, DR PREET Palafox Consulting Unavailable TIMMIS, DR RED Attending Unavailable TIMMIS, DR RED Consulting Unavailable TIMMIS, DR RED Admitting Unavailable AICHHOLZ, [facility] Primary Care Unavailable ZIEBER, DR PREET Palafox Consulting Unavailable TIMMIS, DR RED Attending Unavailable TIMMIS, DR RED Consulting Unavailable TIMMIS, DR RED Admitting Unavailable AICHHOLZ, [facility] Primary Care Unavailable ZIEBER, DR PREET Palafox Consulting Unavailable TIMMIS, DR RED Attending Unavailable TIMMIS, DR RED Consulting Unavailable AICHOLZ, [facility] Primary Care Unavailable TIMMIS, DR RED Admitting Unavailable WEST, DR PAULETTE León Consulting Unavailable AICHHOLZ, [facility] Primary Care Unavailable GARCIA ., DR BAILEY Attending Unavailable GARCIA ., DR BAILEY Consulting Unavailable GARCIA ., DR BAILEY Admitting Unavailable ZIEBER, DR PREET Palafox Consulting Unavailable LAKSHMIPATHY ., NARENDRANMONA Attending Marleni vailable AICHHOLZ, [facility] Primary Care Unavailable LAKSHMIPATHY ., BYRON Admitting Marleni vailable MORALES ., DR MARKO Stafford Admitting Unavailable MORALES ., DR MARKO Stafford Attending Unavailable MORALES ., DR MARKO Stafford Consulting Unavailable AICHOLZ, [facility] Primary Care Unavailable DELANEY ., ARTURO Consulting Unavailable AICHHOLZ, YARD ASSISTANT ESSIE Primary Care Unavailable COLE, DR PAULETTE León Consulting Unavailable GARCIA ., DR BAILEY Attending Unavailable GARCIA ., DR BAILEY Admitting Unavailable AICHHOLZ, YARD ASSISTANT ESSIE Consulting Unavailable YOBANY ., DR RASMUSSEN Attending Unavailable YOBANY ., DR RASMUSSEN Consulting Unavailable AICHHOLZ, YARD ASSISTANT ESSIE Primary Care Unavailable YOBANY ., DR RASMUSSEN Admitting Unavailable AICHHOLZ, YARD ASSISTANT ESSIE Primary Care Unavailable AICHHOLZ, YARD ASSISTANT ESSIE Attending Unavailable AICHHOLZ, YARD ASSISTANT ESSIE Consulting Unavailable AICHHOLZ, YARD ASSISTANT ESSIE Admitting Unavailable DELANEY ., ARTURO Admitting Unavailable DELANEY ., ARTURO Attending Unavailable AICHHOLZ, YARD ASSISTANT ESSIE Primary Care Unavailable ZIEBER, DR PREET Palafox Consulting Unavailable DELANEY ., ARTURO Consulting Unavailable TIMMIS, DR RED Attending Unavailable TIMMIS, DR RED Consulting Unavailable TIMMIS, DR RED Admitting Unavailable AICHHOLZ, YARD ASSISTANT ESSIE Primary Care Unavailable ZIEBER, DR PREET Palafox Consulting Unavailable DIAB ., EDNA Attending Unavailable DIAB ., EDNA Admitting Unavailable MARKER ., DR JIMÉNEZ Consulting Unavailable AICHHOLZ, YARD ASSISTANT ESSIE Primary Care Unavailable DIAB ., EDNA Consulting Unavailable OWOYELE, MISTY Consulting Unavailable AICHHOLZ, YARD ASSISTANT ESSIE Primary Care Unavailable AICHHOLZ, YARD ASSISTANT ESSIE Attending Unavailable AICHHOLZ, YARD ASSISTANT ESSIE Consulting Unavailable AICHHOLZ, YARD ASSISTANT ESSIE Admitting Unavailable ZIEBER, DR PREET Palafox Consulting Unavailable MORALES ., DR MARKO Stafford Attending Unavailable MORALES ., DR MARKO Stafford Admitting Unavailable AICHHOLZ, YARD ASSISTANT ESSIE Primary Care Unavailable MISC, DR MCCARTHY Referring Unavailable JOSE ., DR BAILEY Consulting Unavailable MORALES ., DR MARKO Stafford Consulting Unavailable Juliana Block Unavailable Aichholz YARD ASSISTANT, Essie Fely Primary Care Provider Adán Torres DO Unavailable Dany ARDON MD, Alexis Cummins Unavailable Angel Delgado DO Unavailable [phone] Lakshmi FELIX, Yuriy Primary Care Provider [phone] [facility] SURFACE GRINDER TENDER, Essie Unavailable Aichholz SURFACE GRINDER TENDER, Essie Unavailable Yuriy Martins MD Primary Care Provider LOIS MCKEON Admitting Unavailable LOIS MCKEON Attending Unavailable AICHHOLZ, ESSIE FELY Primary Care Unavailable REGINE MTZ Consulting Unavailabl e Aichholz COMMERCIAL AGENT-YARD ASSISTANT, Essie J Primary Care Provider LOIS MCKEON [...] AICHHOLZ, ESSIE FELY Primary Care Unavailable Aichholz COMMERCIAL AGENT-YARD ASSISTANT, Essie J Primary Care Provider AICHHOLZ, ESSIE [...] AICHHOLZ, ESSIE J Primary Care Unavailable Aichholz COMMERCIAL AGENT-YARD ASSISTANT, Essie J Primary Care Provider TRINH EDUARDO [...] Attending Unavailable Paulette Warren MD Attending Provider [phone] Essie Ryan Primary Care Provider [phone] Lynn GARCIA Attending Unavailable Lynn GARCIA Attending Unavailable Lynn GARCIA Referring Unavailable Lynn GARCIA Attending Unavailable LESLIE JUNG Attending Unavailable Yi Herrera Attending Unavailable Allergies Allergy Classification Reported Allergen(s) Allergy Type Date of Onset Reaction(s) Facility (11 sources) Penicillins; Translations: [PENICILLINS] Drug allergy (disorder) 09-21-[address] [facility] Repository (3 sources) Penicillin V Drug Allergy [facility] 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 Other (20 sources) Penicillins Drug Allergy 07-27-19 17 Unknown, Fever [facility] (9 sources) History of - penicillin allergy (context-depend ent category); Translations: [H/O: penicillin allergy] Drug allergy [facility] (1 source) Penicillin Drug Allergy [facility] [email or web address] [facility] [employer] Other (20 sources) Penicillins Drug Intolerance 06-13-20 14 Other, Unknown [facility] Work Phone: (1 source) Penicillins Propensity to adverse reactions to drug 10-04-19 19 [facility] Medications Current Medications Medication [...] on above: Take 2 tablets by mo [facility] every 6 hours as needed. ARIPiprazole 30 [...] 14 tablet 06/30/2024 Active polyethylene glycol 3350 400695 mg / potassium chloride 1480 mg / sodium bicarbonate 5720 mg / sodium chloride 28336 mg powder for oral solution (3 sources) Osmotic Laxative Start: 3 NuLYTELY [place] oral powder for reconstitution See Instructions, 1 EA, Refill(s) 0, See physician instructions prior to procedure., [id number], 155, cm, 11/24/22 13:47:00 EDT, Height/Length Dosing, [...] procedure, # 2 tab(s), Refills(s) 0, Pharmacy: [id number], 155, cm, 03/03/22 15:04:00 EDT, Height/Length Dosing, [...] Reference Range Facility XR ABDOMEN 1Von 02-11-2025 [place] [address] XRay Report Signed Patient: STACEY SAHU MR#: [id number] : 1975 Acct:[id number] Age/Sex: 49 / F ADM Date: 02/11/25 Loc: RAD Attending Dr: Lynn Garcia M.D. Ordering Physician: Lynn Garcia M.D. Date of Service: 02/11/25 Procedure(s): XR abdomen 1V Accession Number(s): [id number] cc: Essie Ryan SURFACE GRINDER TENDER; Lynn Garcia M.D. [address] [id number] Patient Name: STACEY SAHU MRN: [facility]:[id number] date: 1975 Sex: F Assigned Patient Location: [facility] Current Patient Location: [facility] Accession/Order Number: [id number] Exam Date: 02/11/2025 12:30 Report Date: 02/11/2025 [...] Iniguez M.D. 02/11/2025 12:36 PM Dictation Location: [place] [address] Electronically authenticated by: [id number] Y Date: 02/11/2025 12:36 Dictated By: Vipin Iniguez D.O. Signed By: 02/11/25 1239 DD/ 1236 TD/TT: Synthetic Cloth Binding Cutter: [facility] Radiology, Radiologist, - 02/11/2025 [place] [address] XRay Report Signed Patient: STACEY SAHU MR#: [id number] : 1975 Acct:[id number] Age/Sex: 49 / F ADM Date: 02/11/25 Loc: RAD Attending Dr: Lynn Garcia M.D. Ordering Physician: Lynn Garcia M.D. Date of Service: 02/11/25 Procedure(s): XR abdomen 1V Accession Number(s): [id number] cc: Essie Ryan SURFACE GRINDER TENDER; Lynn Garcia M.D. The [address] [address] Patient Name: STACEY SAHU MRN: [id number] date: 1975 Sex: F Assigned Patient Location: [facility] Current Patient Location: [facility] Accession/Order Number: [id number] Exam Date: 02/11/2025 12:30 Report Date: 02/11/2025 [...] Iniguez M.D. 02/11/2025 12:36 PM Dictation Location: [place] [address] Electronically authenticated by: [id number] Y Date: 02/11/2025 12:36 Dictated By: Vipin Iniguez D.O. Signed By: 02/11/25 1239 DD/ 1236 TD/TT: Synthetic Cloth Binding Cutter: [facility] Study observation (narrative) [facility] XR ABDOMEN 1VOrdered By: Rusty iologist Radiology on 02-11-2025 [employer] Work Phone: HbA1c (Bld) [Mass fraction]o n 01-01-2025 Interpretation and review of laboratory results Normal [facility] - Hematology and Cell countson 01-01-2025 HbA1c (Bld) [Mass fraction] 5.6 % [facility] XR ABDOMEN 1Von 11-28-[address] [address] XRay Report Signed Patient: STACEY SAHU MR#: [id number] : 1975 Acct:[id number] Age/Sex: 49 / F ADM Date: 11/28/24 Loc: SURGOUT Attending Dr: Lynn Garcia M.D. Ordering Physician: Lynn Garcia M.D. Date of Service: 11/28/24 Procedure(s): XR abdomen 1V Accession Number(s): [id number] cc: Essie Ryan SURFACE GRINDER TENDER; Lynn Garcia M.D. The [place] [id number] Patient Name: STACEY SAHU MRN: [facility]:[id number] date: 1975 Sex: F Assigned [facility] Current Patient Location: [facility] Accession/Order Number: [id number] Exam Date: 11/28/2024 11:14 Report Date: 11/28/2024 [...] Clifford M.D. 11/28/2024 11:20 AM Dictation Location: [place] [address] Electronically authenticated by: [id number] Y Date: 11/28/2024 11:20 Dictated By: Dinorah Clifford M.D. Signed By: 11/28/24 1123 DD/ 1120 TD/TT: Synthetic Cloth Binding Cutter: [facility] Radiology, Radiologist, - 11/28/2024 [place] [address] XRay Report Signed Patient: STACEY SAHU MR#: [id number] : 1975 Acct:[id number] Age/Sex: 49 / F ADM Date: 11/28/24 Loc: SURGOUT Attending Dr: Lynn Garcia M.D. Ordering Physician: Lynn Garcia M.D. Date of Service: 11/28/24 Procedure(s): XR abdomen 1V Accession Number(s): [id number] cc: Essie Ryan SURFACE GRINDER TENDER; Lynn Garcia M.D. [place] [address] Patient Name: STACEY SAHU MRN: [id number] date: 1975 Sex: F Assigned Patient Location: SURGOUT Current Patient Location: [facility] Accession/Order Number: [id number] Exam Date: 11/28/2024 11:14 Report Date: 11/28/2024 [...] Clifford M.D. 11/28/2024 11:20 AM Dictation Location: [place] [address] Electronically authenticated by: [id number] Y Date: 11/28/2024 11:20 Dictated By: Dinorah Clifford M.D. Signed By: 11/28/24 1123 DD/ 1120 TD/TT: Synthetic Cloth Binding Cutter: [facility] Radiology Study observation (narrative) [facility] XR ABDOMEN 1VOrdered By: Rusty iologpuja Radiology on 11-28-2024 [facility]: ALL CBC WITH AUTO DIFFon BASOPHILS ABSOLUTE AUTO 0.1 [facility] Basophils/100 WBC (Bld) 1.2 % 0.2 - 2.0 % [facility] Eosinophils/100 WBC (Bld) 7.7 % High 0.9 - 7.0 % [facility] Erythrocyte distribution width (RBC) [Ratio] 13.1 % 11.0 - 15.0 % [facility] Hematocrit (Bld) [Volume fraction] 38.2 % 36.0 - 48.0 % [facility] Hemoglobin (Bld) [Mass/Vol] 12.4 g/dL 12.0 - 16.0 g/dL [facility] IMMATURE GRANULOCYTES ABS AUTO 0.02 [facility] Immature granulocytes/100 WBC (Bld) 0.3 % 0.0 - 0.5 % [facility] Interpretation and review of laboratory results Abnormal [facility] LYMPHOCYTES ABSOLUTE AUTO 2.7 [facility] Lymphocytes/100 WBC (Bld) 36.2 % 20.5 - 60.0 % [facility] MCH (RBC) [Entitic mass] 28.6 pg 26.7 - 34.0 pg [facility] MCHC (RBC) [Mass/Vol] 32.5 g/dL 29.9 - 35.2 g/dL [facility] MCV (RBC) [Entitic vol] 88 fL 81.0 - 99.0 fL [facility] MONOCYTES ABSOLUTE AUTO 0.6 [facility] Monocytes/100 WBC (Bld) 8.5 % 1.7 - 12.0 % [facility] NEUTROPHILS ABSOLUTE AUTO 3.5 [facility] Neutrophils/100 WBC (Bld) 46.1 % 43.0 - 75.0 % [facility] Platelet mean volume (Bld) [Entitic vol] 10.4 fL 9.5 - 13.5 fL [facility] EO # 0.6 [facility]T [facility] RBC 4.34 [facility] WBC 7.6 [facility] 36on 11-19-2024 36 Patient left a voicemail indicating she would like to proceed with alternative provider and lab provided they are in-network with her insurance. Unable to determine insurance network status. Faxed referral, sleep study order, last visit notes, and split night study report to [facility]. [facility] 36on 11-15-2024 36 Left voicemail for patient: according to [facility] sleep medicine in [place] has [employer]-trained techs at their lab and an [employer]-trained provider in Dr. Paulette Warren -- would you like us to send your study order and referral? [facility] Telephoneon 11-15-2024 Telephone [phone] Stacey Sahu 1975 Date Provider Department Center 11/15/2024 KAMINI URENA [facility] SLEEP [facility] Family History Problem Relation Age of Onset Coronary artery disease Father Family Status - Relation Status Age at Mother Alive Father Reason for Visit and Comments: Sleep Study [701] Referral [825] [facility] Office Visiton 11-11-2024 Follow-up visit [id number] Stacey Sahu 1975 Provider Department Center 11/11/2024 LIZ COTTO [facility] Family History Problem Relation Age of Onset Coronary artery disease Father Family Status - Relation Status Age at Mother Alive Father Level of Service:90794 [place] OFFICE/OUTPATIENT ESTABLISHED MOD MDM 30 MIN [facility] XR SPINE CERVICAL 3 VWS OR L [...] MD on 11/02/2024 11:41 PM Normal [facility] CA ECHO DOPPLER COMPLETEon 0 11-01-[address] [address] Cardiology Report Signed Patient: HENRYSTACEY Gonzalez MR#: [id number] : 1975 Acct:[id number] Age/Sex: 49 / F ADM Date: 11/01/24 Loc: CARD Attending Dr: CAN MONROE APRN Ordering Physician: CAN MONROE APRN Date of Service: 11/01/24 Procedure(s): CA echo doppler complete Accession Number(s): [id number] cc: Essie Ryan SURFACE GRINDER TENDER; CAN MONROE APRN Patient Name: STACEY SAHU MR#: [id number] : 1975 Exam Date: 11/01/2024 Ordering Doctor: CAN MONROE YARD ASSISTANT ECHOCARDIOGRAM REPORT PROCEDURE: CA ECHO DOPPLER COMPLETE [...] Guanaco Draper M.D. (more content not included)... [facility] Radiology, Radiologist, - 11/01/[address] [address] Cardiology Report Signed Patient: STACEY SAHU MR#: [id number] : 1975 Acct:[id number] Age/Sex: 49 / F ADM Date: 11/01/24 Loc: CARD Attending Dr: CAN MONROE APRN Ordering Physician: CAN MONROE APRN Date of Service: 11/01/24 Procedure(s): CA echo doppler complete Accession Number(s): [id number] cc: Essie Ryan SURFACE GRINDER TENDER; CAN MONROE APRN Patient Name: STACEY SAHU MR#: [id number] : 1975 Exam Date: 11/01/2024 Ordering Doctor: [...] M.D. Signed By: 11/01/241758 DD/ 57 TD/TT: Synthetic Cloth Binding Cutter: [facility] Radiology Study observation (narrative) [facility] CA ECHO DOPPLER COMPLETEOrde red By: Radiologist Radiology on 11-01-2024 [facility] [employer] Work Phone: Follow-Upon 10-30-2024 Follow-Up [id number] Stacey Sahu 1975 F Date Provider Department Center 10/30/2024 MCKAY TRINH GACF SLEEP [facility] Family History Problem Relation Age of Onset Coronary artery disease Father Family Status - Relation Status Age at Mother Alive Father Level of Service:58083 [place] OFFICE/OUTPATIENT ESTABLISHED LOW MDM 20 MIN Reason for Visit and Comments: Follow-up [432180] - Patient gets a sap a day or twice in chest. [facility] 36on 10-25-2024 36 Spoke with patient and she said her chest pain is better since starting diltiazem. She's scheduled for echo 11/02/2023. [facility] 36on 10-12-2024 36 And also please ask how her chest pain is doing, if it is any better with starting diltiazem. Thanks [facility] 36 When is she scheduled for her ECHO? Would like to have this prior to clearance [facility] 36on 10-11-2024 36 You saw this patient in the office last week. Dr. Garcia is now requesting clearance for lithotripsy, scheduled on 10/17. She had EKG when we saw her, and I just put updated lab results into her chart. Please advise. Thanks! [facility] Telephoneon 10-11-2024 Telephone [id number] Stacey Sahu 1975 F Date Provider Department Center 10/11/2024 Tahir-WINTER STAHL RAV[facility] Family History Problem Relation Age of Onset Coronary artery disease Father Family Status - Relation Status Age at Mother Alive Father [facility] ALL CBC WITH AUTO DIFFon BASOPHILS ABSOLUTE AUTO 0.1 [facility] Basophils/100 WBC (Bld) 1.2 % 0.2 - 2.0 % [facility] Eosinophils/100 WBC (Bld) 6.9 % 0.9 - 7.0 % [facility] Erythrocyte distribution width (RBC) [Ratio] 13.1 % 11.0 - 15.0 % [facility] Hematocrit (Bld) [Volume fraction] 38.5 % 36.0 - 48.0 % [facility] Hemoglobin (Bld) [Mass/Vol] 12.6 g/dL 12.0 - 16.0 g/dL [facility] IMMATURE [facility]OC[facility]TES [facility] Immature granulocytes/100 WBC (Bld) 0.1 % 0.0 - 0.5 % [facility] LYMPHOCYTES ABSOLUTE AUTO 2.7 [facility] Lymphocytes/100 WBC (Bld) 33.4 % 20.5 - 60.0 % [facility] MCH (RBC) [Entitic mass] 28.4 pg 26.7 - 34.0 pg [facility] MCHC (RBC) [Mass/Vol] 32.7 g/dL 29.9 - 35.2 g/dL [facility] MCV (RBC) [Entitic vol] 86.7 fL 81.0 - 99.0 fL [facility] MONOCYTES ABSOLUTE AUTO 0.6 [facility] Monocytes/100 WBC (Bld) 7.8 % 1.7 - 12.0 % [facility] NEUTROPHILS ABSOLUTE AUTO 4.1 [facility] Neutrophils/100 WBC (Bld) 50.6 % 43.0 - 75.0 % [facility] Platelet mean volume (Bld) [Entitic vol] 10.6 fL 9.5 - 13.5 fL [facility] TBH EO # 0.6 [facility] PLT 270 [facility] RBC 4.44 [facility] WBC 8.1 [facility] XR HIP LT MIN 2Von [address] [place] [address] XRay Report Signed Patient: STACEY SAHU MR#: [id number] : 1975 Acct:[id number] Age/Sex: 49 / F ADM Date: 10/09/24 Loc: RUSTY Attending Dr: Essie Ryan NP Ordering Physician: Essie Ryan NP Date of Service: 10/09/24 Procedure(s): XR hip LT min 2V Accession Number(s): [id number] cc: Essie Ryan NP The [address] [id number] Patient Name: STACEY SAHU MRN: [facility]:[id number] date: 1975 Sex: F Assigned Patient Location: RAD Current Patient Location: RAD Accession/Order Number: [id number] Exam Date: 10/09/2024 15:18 Report Date: 10/09/2024 15:19 At the request of: ESSIE RYAN SURFACE GRINDER TENDER Procedure: XR hip LT min 2V LEFT HIP - 2 views: CLINICAL HISTORY: Left Hip Pain COMPARISON: None FINDINGS: Mild degenerative changes of the left hip without acute bony process. XR/XR hip LT min 2V IMPRESSION: MILD DEGENERATIVE CHANGES OF THE LEFT HIP WITHOUT ACUTE BONY PROCESS.. Impression dictated by: Robby Lowe Jr., D.O.10/09/2024 3:19 PM Dictation Location: [place] [address] Electronically authenticated by: [id number] Y Date: 10/09/2024 15:19 Dictated By: Robby Lowe M.D. Signed By: 10/09/24 1522 DD/ 1519 TD/TT: Synthetic Cloth Binding Cutter: [facility] Radiology, Radiologist, MD - 10/09/2024 [place] [address] XRay Report Signed Patient: STACEY SAHU MR#: [id number] : 1975 Acct:[id number] Age/Sex: 49 / F ADM Date: 10/09/24 Loc: RAD Attending Dr: Essie Ryan SURFACE GRINDER TENDER Ordering Physician: Essie Ryan NP Date of Service: 10/09/24 Procedure(s): XR hip LT min 2V Accession Number(s): [id number] cc: Essie Ryan NP The [address] [address] Patient Name: STACEY SAHU MRN: [facility]:[id number] date: 1975 Sex: F Assigned Patient Location: [facility] Current Patient Location: RAD Accession/Order Number: [id number] Exam Date: 10/09/2024 15:18 Report Date: 10/09/2024 [...] Lowe Jr., D.O.10/09/2024 3:19 PM Dictation Location: [place] [address] Electronically authenticated by: [id number] Y Date: 10/09/2024 15:19 Dictated By: Robby Lowe M.D. Signed By: 10/09/24 1522 DD/ 1519 TD/TT: Synthetic Cloth Binding Cutter: [facility] Radiology Study observation (narrative) [facility] XR HIP LT MIN 2VOrdered By: Radiologist Radiology on 10-09-2024 [facility] [employer] Work Phone: Ambulatory Visit Summaryon 0 [...] [facility] [address], [place] [address] [phone] Medications What How Much When Instructions Unchanged [...] these instructions at home: Medicines ??? Take meeq-jpv-pnpecdd and prescription medicines only as told by [...] to prevent or treat constipation: ? Take qvqw-nqj-dhrugnq or prescription medicines. ? Eat foods that [...] vegetables. ? (more content not included)... Normal [facility] Urology Office/Clinic Noteon 10-07-2024 Urology Office/Clinic Note [...] [facility] [address], [place] [address] [phone] Additional Instructions: schedule R ESWL then L [...] Use:. Nev (more content not included)... Normal [facility] Comment on above: Result Comment: Elec tronically Signed By: Lynn GARCIA MD\.br\Date and Time Signed: 10/07/24 10:43 EDT\.br\Electronically Co-Signed By: Imani Renae\.br\Date and Time Co-Signed: 10/07/24 10:37 EDT MM TOMOSYNTHESIS SCREENING B Ion 10-04-2024 [place] [address] Mammography Report Signed Patient: STACEY SAHU MR#: [id number] : 1975 Acct:[id number] Age/Sex: 49 / F ADM Date: 10/04/24 Loc: MAMMO Attending Dr: Essie Ryan NP Ordering Physician: Essie Ryan NP Results: Date of Service: 10/04/24 Follow Up: Procedure(s): MM tomosynthesis screening BI Accession Number(s): [id number] cc: Essie Ryan NP Patient Name: STACEY SAHU MR#: [id number] : 1975 Exam Date: 10/04/2024 Ordering Doctor: [...] colon cancer at age 56. LOCATION: [facility] BREAST COMPOSITION: There are scattered areas [...] Signed By: 10/04/24 1230 DD/ 1229 TD/TT: Synthetic Cloth Binding Cutter: [facility] Radiology, Radiologist, MD - 10/04/2024 [place] [address] Mammography Report Signed Patient: STACEY SAHU MR#: [id number] : 1975 Acct:[id number] Age/Sex: 49 / F ADM Date: 10/04/24 Loc: MAMMO Attending Dr: Essie Ryan NP Ordering Physician: Essie Ryan NP Results: Date of Service: 10/04/24 Follow Up: Procedure(s): MM tomosynthesis screening BI Accession Number(s): [id number] cc: Essie Ryan NP Patient Name: STACEY SAHU MR#: [id number] : 1975 Exam Date: 10/04/2024 Ordering Doctor: NIURKA Ryan YARD ASSISTANT RADIOLOGY REPORT PROCEDURE: MM TOMOSYNTHESIS SCREENING BI [...] colon cancer at age 56. LOCATION: [facility] BREAST COMPOSITION: There are scattered areas [...] Signed By: 10/04/24 1230 DD/ 1229 TD/TT: Synthetic Cloth Binding Cutter: [facility] [employer] Radiology Study observation (narrative) [facility] Daio MM TOMOSYNTHESIS SCREENING B IOrdered By: Radiologist Radiology on 10-04-2024 [facility] [employer] Work Phone: Office Visiton 10-03-2024 Follow-up visit [id number] Stacey Sahu 1975 F Date Provider Department Center 10/03/2024 [facility] Family History Problem Relation Age of Onset Coronary artery disease Father Family Status - Relation Status Age at Mother Alive Father Level of Service:04744 [place] OFFICE/OUTPATIENT ESTABLISHED MOD MDM 30 MIN Reason for Visit and Comments: Hypertension [063718] Hyperlipidemia [182] Normal [facility] Follow-Upon 09-27-2024 Follow-Up [id number] Stacey Sahu A 1975 Date Provider Department Center 09/27/2024 TRINH BASHIR [facility] SLEEP [facility] Family History Problem Relation Age of Onset Coronary artery disease Father Family Status - Relation Status Age at Father Level of Service:23868 [place] OFFICE/OUTPATIENT ESTABLISHED MOD MDM 30 MIN Reason for Visit and Comments: Sleep Apnea [348] Normal [facility] 09-12-2024 36 Scheduled patient for Inspire device activation on 09/27 at 9:00 am. Normal [facility] 09-10-2024 36 Left voicemail for patient: are you available to come in for your Inspire activation on September 27 at 9:00 am? Could potentially do it a bit later if that would work better. [facility] US RENAL BIon 09-09-2024 [place] [address] Ultrasound Report Signed Patient: STACEY SAHU MR#: [id number] : 1975 Acct:[id number] Age/Sex: 49 / F ADM Date: 09/09/24 Loc: US Attending Dr: Leslie ONEILL Ordering Physician: Leslie Jung Date of Service: 09/09/24 Procedure(s): US renal BI Accession Number(s): [id number] cc: Essie Ryan NP; Leslie Jung [place] [address] Patient Name: STACEY SAHU MRN: [facility]:[id number] date: 1975 Sex: F Assigned Patient Location: US Current Patient Location: US Accession/Order Number: [id number] Exam Date: 09/09/2024 11:27 Report Date: 09/09/2024 [...] Lowe Jr., D.O.09/09/2024 11:28 AM Dictation Location: [place] [address] Electronically authenticated by: [id number] Y Date: 09/09/2024 11:28 Dictated By: Robby Lowe M.D. Signed By: 09/09/24 1131 DD/ 1128 TD/TT: Synthetic Cloth Binding Cutter: [facility] Radiology, Radiologist, MD - 09/09/2024 [place] [address] Ultrasound Report Signed Patient: STACEY SAHU MR#: [id number] : 1975 Acct:[id number] Age/Sex: 49 / F ADM Date: 09/09/24 Loc: US Attending Dr: Leslie ONEILL Ordering Physician: Leslie Jung Date of Service: 09/09/24 Procedure(s): US renal BI Accession Number(s): [id number] cc: Essie Ryan NP; Leslie Jung [place] [address] Patient Name: STACEY SAHU MRN: [facility]:[id number] date: 1975 Sex: F Assigned Patient Location: US Current Patient Location: US Accession/Order Number: [id number] Exam Date: 09/09/2024 11:27 Report Date: 09/09/2024 [...] Lowe Jr., D.O.09/09/2024 11:28 AM Dictation Location: [place] [address] Electronically authenticated by: [id number] Y Date: 09/09/2024 11:28 Dictated By: Robby Lowe M.D. Signed By: 09/09/24 1131 DD/ 1128 TD/TT: Synthetic Cloth Binding Cutter: [facility] Radiology Study observation (narrative) [facility] RENAL BIOrdered By: Radio logist Radiology on 09-09-2024 [facility] [employer] Work Phone: XR ABDOMEN 1Von 09-09-[address] [address] XRay Report Signed Patient: STACEY SAHU MR#: [id number] : 1975 Acct:[id number] Age/Sex: 49 / F ADM Date: 09/09/24 Loc: Attending Dr: Leslie ONEILL Ordering Physician: Leslie Jung Date of Service: 09/09/24 Procedure(s): XR abdomen 1V Accession Number(s): [id number] cc: Essie Ryan SURFACE GRINDER TENDER; Leslie Jung [address] [address] Patient Name: STACEY SAHU MRN: [facility]:[id number] date: 1975 Sex: F Assigned Patient Location: Current Patient Location: US Accession/Order Number: [id number] Exam Date: 09/09/2024 12:27 Report Date: 09/09/2024 [...] Lowe Jr., D.O.09/09/2024 12:29 PM Dictation Location: [place] [address] Electronically authenticated by: [id number] Y Date: 09/09/2024 12:29 Dictated By: Robby Lowe M.D. Signed By: 09/09/24 1231 DD/ 1229 TD/TT: Synthetic Cloth Binding Cutter: [facility] Radiology, Radiologist, MD - 09/09/[address] [address] XRay Report Signed Patient: STACEY SAHU MR#: [id number] : 1975 Acct:[id number] Age/Sex: 49 / F ADM Date: 09/09/24 Loc: US Attending Dr: Leslie ONEILL Ordering Physician: Leslie Jung Date of Service: 09/09/24 Procedure(s): XR abdomen 1V Accession Number(s): [id number] cc: Essie Ryan SURFACE GRINDER TENDER; Leslie Jung [place] [address] Patient Name: STACEY SAHU MRN: [facility]:[id number] date: 1975 Sex: F Assigned Patient Location: US Current Patient Location: US Accession/Order Number: [id number] Exam Date: 09/09/2024 12:27 Report Date: 09/09/2024 [...] Lowe Jr., D.O.09/09/2024 12:29 PM Dictation Location: [place] [address] Electronically authenticated by: [id number] Y Date: 09/09/2024 12:29 Dictated By: Robby Lowe M.D. Signed By: 09/09/24 1231 DD/ 1229 TD/TT: Synthetic Cloth Binding Cutter: [facility] Radiology Study observation (narrative) [facility] XR ABDOMEN 1VOrdered By: Rad iologist Radiology on 09-09-2024 [facility] [employer] Work Phone: ALL CBC WITH AUTO DIFFon BASOPHILS ABSOLUTE AUTO 0.1 [facility] Basophils/100 WBC (Bld) 0.9 % 0.2 - 2.0 % [facility] Eosinophils/100 WBC (Bld) 8.7 % High 0.9 - 7.0 % [facility] Erythrocyte distribution width (RBC) [Ratio] 12.8 % 11.0 - 15.0 % [facility] Hematocrit (Bld) [Volume fraction] 40.1 % 36.0 - 48.0 % [facility] Hemoglobin (Bld) [Mass/Vol] 12.8 g/dL 12.0 - 16.0 g/dL [facility] IMMATURE GRANULOCYTES ABS AUTO 0.01 [facility] Immature granulocytes/100 WBC (Bld) 0.1 % 0.0 - 0.5 % [facility] Interpretation and review of laboratory results Abnormal [facility] LYMPHOCYTES ABSOLUTE AUTO 2.7 [facility] Lymphocytes/100 WBC (Bld) 38.7 % 20.5 - 60.0 % [facility] MCH (RBC) [Entitic mass] 29 pg 26.7 - 34.0 pg [facility] MCHC (RBC) [Mass/Vol] 31.9 g/dL 29.9 - 35.2 g/dL [facility] MCV (RBC) [Entitic vol] 90.7 fL 81.0 - 99.0 fL [facility] MONOCYTES ABSOLUTE AUTO 0.7 [facility] Monocytes/100 WBC (Bld) 10.1 % 1.7 - 12.0 % [facility] NEUTROPHILS ABSOLUTE AUTO 2.9 [facility] Neutrophils/100 WBC (Bld) 41.5 % Low 43.0 - 75.0 % [facility] Platelet mean volume (Bld) [Entitic vol] 10.7 fL 9.5 - 13.5 fL [facility] EO # [facility].6 [facility] PLT 282 [facility] RBC 4.42 [facility] WBC 7 [facility] CN[facility] STACEY SAHU ([id number]) 1975 F Date Time Provider Department 07/30/24 [...] Encounter Status:Closed by LOIS MCKEON on 07/30/24 [facility] No Panel InformationOrdered By: Radiologist Radiology on 07-30-2024 [employer] Work Phone: XR HIP 3V PELV+ AP/LAT [...] which may be external to the patient. Synthetic Cloth Binding Cutter: [employer] Transcribe Date/Time: Jul 30 2024 2:30P Dictated by : OLVIN HOLDER MD This examination was interpreted and the report reviewed and electronically signed by: OLVIN HOLDER MD on Jul 30 2024 2:32PM EST [id number]^ SI^ACN [facility] Radiology, Radiologist, MD - 07/30/2024 [...] which may be external to the patient. Synthetic Cloth Binding Cutter[facility] Transcribe Date/Time: Jul 30 2024 2:30P Dictated by : OLVIN HOLDER MD This examination was interpreted and the report reviewed and electronically signed by: OLVIN HOLDER MD on Jul 30 2024 2:32PM EST [id number]^ SI^ACN [facility] XR HIP 3V PELV+ AP/LAT RT * [...] which may be external to the patient. Synthetic Cloth Binding Cutter: [facility] Transcribe Date/Time: Jul 30 2024 2:30P Dictated by : OLVIN HOLDER MD This examination was interpreted and the report reviewed and electronically signed by: OLVIN HOLDER MD on Jul 30 2024 2:32PM EST [id number] ACN Normal [facility] Radiology Study observation (narrative) [facility] XR Pelvis and Hip - right AP and Lateral frogon 07-30-2024 IMPRESSION: Postoperative changes of right total hip arthroplasty. Nonspecific rounded/disc-like radiodensities overlying the right lower quadrant and iliac wing, which may be external to the patient. Synthetic Cloth Binding Cutter: [facility] Transcribe Date/Time: Jul 30 2024 2:30P [...] superior iliac wing. DIVISION OF RADIOLOGY Provider, [facility] - 07/30/2024 * * *Final Report* * [...] which may be external to the patient. Synthetic Cloth Binding Cutter: [employer] Transcribe Date/Time: Jul 30 2024 2:30P Dictated by : OLVIN HOLDER MD This examination was interpreted and the report reviewed and electronically signed by: OLVIN HOLDER MD on Jul 30 2024 2:32PM EST [facility] Radiology Study observation (narrative) [facility] ALLIED HEALTHon 07-01-2024 ALLIED HEALTH HNO ID: [id number] Author: JOSELO GÓMEZ RT(R) Service: Radiology Author [...] PATIENT PRESENTS WITH AN IMPLANTABLE OR ATTACHED CERTIFIED DIABETES EDUCATOR: No RADIOLOGY DEPARTMENT: General X-ray: Exam(s) Completed: Pelvis X-Ray: Pelvis General AP PERIPHERAL IV DATA: Not applicable SIGNED BY: RT Baltazar Cela(R) July 01, 2024 10:58 AM [facility] POSTPROC EVALon 025 [facility] POSTPROC EVAL HNO ID: [id number] Author: DANA HOWE MD Service: Anesthesiology Author [...] July 01, 2024 TIME: 12:06 PM CSN: [id number] [facility] ANES PRE-OPon 07-01-2024 ANES PRE-OP HNO ID: [id number] Author: DANA HOWE MD Service: Anesthesiology Author [...] July 01, 2024 TIME: 7:27 AM CSN: [id number] [facility] BRIEF OP NOTon 07-01-2024 BRIEF OP NOT HNO ID: [id number] Author: MONIK CONSTANTINO MD Service: Orthopaedic Surgery Author Type: Resident Type: Brief Op Note Filed: 07/01/2024 09:54 Note Text: BRIEF OP NOTE LOG ID: [id number] Surgery/Procedure Date: 07/01/2024 Incision/Procedure Start Time: 8:43 AM Incision Close/Procedure End Time: Surgeon(s)/Procedur alist(s) and Transcriber(s): Surgeons and Role: * Lois Mckeon MD [...] 01, 2024 TIME: 9:54 AM PAGER/CONTACT #: [phone] [facility] CASE MGT INIT Nata 2024 CASE MGT INIT MCKENZIE HNO ID: [id number] Author: ALISIA GILMORE RN Service: ? Author Type: Registered Nurse Type: Care Mgt Initial Assessment Filed: 07/01/2024 13:31 Note Text: CARE MANAGEMENT: ASSESSMENT AND DISCHARGE PLAN SERVICE DATE: July 01, 2024 SERVICE TIME: 1:29 pm PCP: Essie Ryan CNP, YARD ASSISTANT Primary Contact: Extended Emergency Contact Information Primary Emergency Contact: Sruthi Sahu Address: [address] [place] [address] Relation: Spouse Admission Status: Extended Recovery Insurance Provider: [facility] MEDICAID OF [place] Discharge Planning requested by: Per Department Practice Potential Transition Plans Home;Home Care Advance Directives Current Advance Directive: None Guard Chief Attempted to Assist with AD Completion: Yes [...] General wellness, Be able to go home [place] of Choice Explained: [place] of Choice Given: Yes Level of Care [...] DATE: July 01, 2024 TIME: 1:29 PM [facility] CONSULTon 07-01-2024 CONSULT HNO ID: [id number] Author: REGINE MTZ MD Service: General Internal Medicine Author Type: Physician Type: Consults Filed: 07/01/2024 14:04 Note Text: INTERNAL MEDICINE CONSULT HISTORY AND PHYSICAL PLEASE DO NOT REMOVE FROM THE CHART OR MODIFY PRINTED COPY Patient Name: Stacey Sahu PRIMARY CARE PHYSICIAN: Essie Ryan CNP, YARD ASSISTANT CONSULTING PHYSICIAN: Lois Mckeon MD MD DATE [...] flush bag 20 (more content not included)... [facility] NURSING PROGon 07-01-2024 NURSING PROG HNO ID: [id number] Author: DINORAH NICOLAS, PATIENCE Service: Nursing Author Type: Registered Nurse Type: Nursing Progress Note Filed: 07/01/2024 15:53 Note Text: Discharge education completed with patient and spouse. All questions answered at this time. Pt left unit via wheelchair with transport staff. [facility] OPERATIVE NOon 07-01-2024 OPERATIVE NO HNO ID: [id number] Author: LOIS MCKEON MD Service: Orthopaedic Surgery Author Type: Physician Type: Operative Report Filed: 07/01/2024 10:57 Note Text: OPERATIVE/PROCEDURE REPORT LOG ID: [id number] Surgery/Procedure Date: 07/01/2024 Incision/Procedure Start Time: 8:43 AM Incision Close/Procedure End Time: 10:11 AM Surgeon(s)/Tiffany garcia(s) and Transcriber(s): Surgeons and Role: * Lois Mckeon MD [...] Implant Name Type Inv. Item Serial No. Asphalt Tamper Lot No. LRB No. Used Action PIN STEINMANN 3/16IN STAINLESS STEEL 9IN FIXATION TROCAR POINT ONE END - [id number] Pin PIN STEINMANN 3/16IN STAINLESS STEEL 9IN FIXATION TROCAR POINT ONE END BRASSELER [id number] Right 1 Non-Implant INSERT ACETABULAR 32MM 0D D HIP X3 TRIDENT STERILE LATEX FREE - [id number] Joint - Hip INSERT ACETABULAR 32MM 0D D HIP X3 TRIDENT STERILE LATEX FREE AYDEE [id number] Right 1 Implanted SHELL TRIDENT II 48MM D TRITANIUM ACETABULAR 3 SCREW HOLE CLUSTER STERILE - [id number] Joint - Hip SHELL TRIDENT II 48MM D TRITANIUM ACETABULAR 3 SCREW HOLE CLUSTER STERILE [employer] [id number] Right 1 Implanted SCREW TRIDENT II 6.5MM 30MM BONE LOW PROFILE HEXAGONAL STERILE - [id number] Screw SCREW TRIDENT II 6.5MM 30MM BONE LOW PROFILE HEXAGONAL STERILE [employer] [id number] Right 1 Implanted STEM FEMORAL 8X99MM SIZE 2 HIGH INSIGNIA COLLARED - [id number] Joint - Hip STEM FEMORAL 8X99MM SIZE 2 HIGH INSIGNIA COLLARED AYDEE [id number] Right 1 Implanted HEAD V40 32MM -4MM OFFSET TAPER BIOLOX DELTA FEMORAL HIP - [id number] Joint - Hip HEAD V40 32MM -4MM OFFSET TAPER BIOLOX DELTA FEMORAL HIP [employer] [id number] Right 1 Implanted Problem List: ACTIVE PROBLEM LIST (spontaneous vaginal delivery) x 4 Crohn's disease without complication (HCC) [id number] Pulmonary Htn (Hcc) Obese Nirmala (Obstructive Sleep [...] suture. Subcutaneous ti (more content not included)... [facility] THERAPY NTon 07-01-2024 THERAPY NT HNO ID: [id number] Author: YUMIKO MARAVILLA, OT/L Service: Occupational Therapy Author Type: Occupational Therapist Type: Therapy (PT/OT/Speech/Resp) Filed: 07/01/2024 14:14 Note Text: Occupational Therapy Evaluation Summary SERVICE DATE: 07/01/2024 SERVICE TIME: 1350 to 1405 ROOM: [place] [address] OT 6 Clicks Score: 22 Total Joint [...] of Occupational Therapy, Standing Balance to Improve [place] with ADLs/Self-Care, Transfer - Car, Toileting , [...] Minimal Assistance, Additional Information with use of counter installer, family plans to assist with socks Toileting [...] DATE: July 01, 2024 TIME: 2:14 PM [facility] THERAPY NT HNO ID: [id number] Author: ANIYA SHAH PT Service: Physical Therapy Author Type: Physical Therapist Type: Therapy (PT/OT/Speech/Resp) Filed: 07/01/2024 13:52 Note Text: Physical Therapy Evaluation Summary SERVICE DATE: 07/01/2024 SERVICE TIME: 1307 to 1346 ROOM: [place] [address] PT 6 Clicks Score: 22 Total Joint [...] on feet TREATMENT INTERVENTIONS Evaluation, Therapeutic Exercise (43757), Gait Training (13581) Timed Code Treatment (minutes): 24 Skilled Treatment [...] Patient does not have a cane. Used ADVERTISING ASSISTANT to simulate cane GOALS Patient will demonstrate [...] DATE: July 01, 2024 TIME: 1:51 PM [facility] XR PELVIS 1V APon 07-01-2024 XR [...] recent surgery. Please see detailed operative report. Synthetic Cloth Binding Cutter: [employer] Transcribe Date/Time: Jul 01 2024 11:05A Dictated by : CHELY YU MD This examination was interpreted and the report reviewed and electronically signed by: CHELY YU MD on Jul 01 2024 11:05AM EST [id number] [id number] [facility] XR PELVIS 1V AP * * [...] Intraoperative examination for surgical planning and documentation. Synthetic Cloth Binding Cutter: [facility] Transcribe Date/Time: Jul 01 2024 11:01A Dictated by : RADHA CARVAJAL DO This examination was interpreted and the report reviewed and electronically signed by: RADHA CARVAJAL DO on Jul 01 2024 11:02AM EST [id number] ACN [facility] URINE CULTURE, ROUTINEon Bacteria identified Cx Nom (U) Urine Culture, Routine [facility] Bacteria identified Cx Nom (U) Mixed urogenital guillermina [facility] Bacteria identified Cx Nom (U) 10,000-25,000 colony forming units per mL [facility] Bacteria identified Cx Nom (U) Performed at: [facility] Bacteria identified Cx Nom (U) [address] [place], [place] [id number] [facility] Bacteria identified Cx Nom (U) Welding Estimator: Avni Schmid PhD, Phone: [phone] [facility] Basic metabolic 2000 panelon 06-05-2024 Anion gap [Moles/Vol] 11 mmol/L Normal 8-15 [facility] Comment on above: Order Comment: Speci men Type: BLOOD SPECIMENOrdering Facility: [facility] Address: [address] [place] [address] Performed By: #### 5 0190-8, 31302-0, 2275-4 ####[facility] LABCLIA [id number] [place] [address] [place] Calcium [Mass/Vol] 9.6 mg/dL Normal 8.5-10.2 [facility] Comment on above: Order Comment: Speci men Type: BLOOD SPECIMENOrdering Facility: [facility] Address: [address] [place] [address] Performed By: #### 5 0190-8, 82850-3, 2275-4 ####[facility] LABCLIA [id number] [place] [address] [place] Chloride [Moles/Vol] 104 mmol/L Normal 98-107 [facility] Comment on above: Order Comment: Speci men Type: BLOOD SPECIMENOrdering Facility: [facility] Address: [address] [place] [address] Performed By: #### 5 0190-8, 83106-2, 2275- ####[facility] LABCLIA [id number] [place] [address] [place] CO2 [Moles/Vol] 25 mmol/L Normal 22-30 [facility] Comment on above: Order Comment: Speci men Type: BLOOD SPECIMENOrdering Facility: [facility] Address: [address] [place] [address] Performed By: #### 5 0190-8, 35627-5, 2275-09 ####[facility] LABCLIA [id number] [place] [address] [place] Creatinine [Mass/Vol] 0.70 mg/dL Normal 0.58-0.96 [facility] Comment on above: Order Comment: Speci men Type: BLOOD SPECIMENOrdering Facility: [facility] Address: [address] [place] [address] Performed By: #### 5 0190-8, 21664-6, 2275-09 ####[facility] LABCLIA [id number] [place] [address] [place] Creatinine and Glomerular filtration rate.predicted panel (S/P/Bld) 108 mL/min/1.73m??? Normal >=60 [facility] Comment on above: Order Comment: Speci men Type: BLOOD SPECIMENOrdering Facility: [facility] Address: [address] [place] [address] Result Comment: Etta mated Glomerular Filtration Rate [...] actual GFR. Performed By: #### 5 0190-8, 97292-8, 2275-09 ####[facility] LABCLIA [id number] [place] [address] [place] Glucose [Mass/Vol] 88 mg/dL Normal 74-99 [facility] Comment on above: Order Comment: Speci men Type: BLOOD SPECIMENOrdering Facility: [facility] Address: [address] [place] [address] Result Comment: The [place] Diabetes Association (ADA) provides guidance for cutoff [...] Standards of Medical Care in Diabetes 2016, [place] Diabetes Association. Diabetes Care. 2016.39(Suppl 1). Performed By: #### 5 0190-8, 33642-7, 2275-09 ####[facility] LABCLIA [id number] [place] [address] [place] Potassium [Moles/Vol] 4.9 mmol/L Normal 3.7-5.1 [facility] Comment on above: Order Comment: Speci men Type: BLOOD SPECIMENOrdering Facility: [facility] Address: [address] [place] [address] Performed By: #### 5 0190-8, 95492-8, 2275-09 ####[facility] LABIA [id number] [place] [address] [place] Sodium [Moles/Vol] 140 mmol/L Normal 136-144 [facility] Comment on above: Order Comment: Speci men Type: BLOOD SPECIMENOrdering Facility: [facility] Address: [address] [place] [address] Performed By: #### 5 0190-8, 83884-5, 2275-09 ####[facility] LABCLIA [id number] [place] [address] [place] Urea nitrogen [Mass/Vol] 17 mg/dL Normal 7-21 [facility] Comment on above: Order Comment: Speci men Type: BLOOD SPECIMENOrdering Facility: [facility] Address: [address] [place] [address] Performed By: #### 5 0190-8, 75507-1, 2276-4 ####[facility] LABCLIA [id number] [place] [address] [place] CBC W Auto Differential pane l (Bld)on 06-05-2024 Basophils (Bld) [#/Vol] 0.10 10*3/uL Normal <0.11 [facility] Comment on above: Order Comment: Speci men Type: BLOOD SPECIMEN Ordering Facility: [facility] Address: [address] [place] [address] Performed By: #### 5 7021-8 #### [facility] LAB CLIA [id number] [address] [place] [address] [place] Basophils/100 WBC (Bld) 1.2 % Normal [facility] Comment on above: Order Comment: Speci men Type: BLOOD SPECIMEN Ordering Facility: [facility] Address: [address] [place] [address] Performed By: #### 5 7021-8 #### [facility] LAB CLIA [id number] [address] [place] [address] [place] Differential cell count method Nom (Bld) Auto Normal [facility] Comment on above: Order Comment: Speci men Type: BLOOD SPECIMEN Ordering Facility: [facility] Address: [address] [place] [address] Performed By: #### 5 7021-8 #### [facility] LAB CLIA [id number] [address] [place] [address] [place] Eosinophils (Bld) [#/Vol] 0.52 10*3/uL High <0.46 [facility] Comment on above: Order Comment: Speci men Type: BLOOD SPECIMEN Ordering Facility: [facility] Address: [address] [place] [address] Performed By: #### 5 7021-8 #### [facility] LAB CLIA [id number] [address] [place] [address] [place] Eosinophils/100 WBC (Bld) 6.0 % Normal [facility] Comment on above: Order Comment: Speci men Type: BLOOD SPECIMEN Ordering Facility: [facility] Address: [address] [place] [address] Performed By: #### 5 7021-8 #### [facility] LAB CLIA [id number] [address] [place] [address] [place] Erythrocyte distribution width (RBC) [Ratio] 12.5 % Normal 11.5-15.0 [facility] Comment on above: Order Comment: Speci men Type: BLOOD SPECIMEN Ordering Facility: [facility] Address: [address] [place] [address] Performed By: #### 5 7021-8 #### [facility] LAB CLIA [id number] [address] [place] [address] [place] Hematocrit (Bld) [Volume fraction] 44.2 % Normal 36.0-46.0 [facility] Comment on above: Order Comment: Speci men Type: BLOOD SPECIMEN Ordering Facility: [facility] Address: [address] [place] [address] Performed By: #### 5 7021-8 #### [facility] LAB CLIA [id number] [address] [place] [address] [place] Hemoglobin (Bld) [Mass/Vol] 13.8 g/dL Normal 11.5-15.5 [facility] Comment on above: Order Comment: Speci men Type: BLOOD SPECIMEN Ordering Facility: [facility] Address: [address] [place] [address] Performed By: #### 5 7021-8 #### [facility] LAB CLIA [id number] [address] [place] [address] [place] Immature granulocytes (Bld) [#/Vol] 10*3/uL Normal <0.10 [facility] Comment on above: Order Comment: Speci men Type: BLOOD SPECIMEN Ordering Facility: [facility] Address: [address] [place] [address] Performed By: #### 5 7021-8 #### [facility] CLIA [id number] [address] [place] [address] [place] Immature granulocytes/100 WBC (Bld) 0.2 % Normal [facility] Comment on above: Order Comment: Speci men Type: BLOOD SPECIMEN Ordering Facility: [facility] Address: [address] [place] [address] Performed By: #### 5 7021-8 #### [facility] LAB CLIA [id number] [address] [place] [address] [place] Lymphocytes (Bld) [#/Vol] 2.89 10*3/uL Normal 1.00-4.00 [facility] Comment on above: Order Comment: Speci men Type: BLOOD SPECIMEN Ordering Facility: [facility] Address: [address] [place] [address] Performed By: #### 5 7021-8 #### [facility] LAB CLIA [id number] [address] [place] [address] [place] Lymphocytes/100 WBC (Bld) 33.4 % Normal [facility] Comment on above: Order Comment: Speci men Type: BLOOD SPECIMEN Ordering Facility: [facility] Address: [address] [place] [address] Performed By: #### 5 7021-8 #### [facility] LAB CLIA [id number] [address] [place] [address] [place] MCH (RBC) [Entitic mass] 28.6 pg Normal 26.0-34.0 [facility] Comment on above: Order Comment: Speci men Type: BLOOD SPECIMEN Ordering Facility: [facility] Address: [address] [place] [address] Performed By: #### 5 7021-8 #### [facility] CLIA [id number] [address] [place] [address] [place] MCHC (RBC) [Mass/Vol] 31.2 g/dL Normal 30.5-36.0 [facility] Comment on above: Order Comment: Speci men Type: BLOOD SPECIMEN Ordering Facility: [facility] Address: [address] [place] [address] Performed By: #### 5 7021-8 #### [facility] CLIA [id number] [address] [place] [address] [place] MCV (RBC) [Entitic vol] 91.5 fL Normal 80.0-100.0 [facility] Comment on above: Order Comment: Speci men Type: BLOOD SPECIMEN Ordering Facility: [facility] Address: [address] [place] [address] Performed By: #### 5 7021-8 #### [facility] CLIA [id number] [address] [place] [address] [place] Monocytes (Bld) [#/Vol] 0.66 10*3/uL Normal <0.87 [facility] Comment on above: Order Comment: Speci men Type: BLOOD SPECIMEN Ordering Facility: [facility] Address: [address] [place] [address] Performed By: #### 5 7021-8 #### [facility] CLIA [id number] [address] [place] [address] [place] Monocytes/100 WBC (Bld) 7.6 % Normal [facility] Comment on above: Order Comment: Speci men Type: BLOOD SPECIMEN Ordering Facility: [facility] Address: [address] [place] [address] Performed By: #### 5 7021-8 #### [facility] CLIA [id number] [address] [place] [address] [place] Neutrophils (Bld) [#/Vol] 4.45 10*3/uL Normal 1.45-7.50 [facility] Comment on above: Order Comment: Speci men Type: BLOOD SPECIMEN Ordering Facility: [facility] Address: [address] [place] [address] Performed By: #### 5 7021-8 #### [facility] CLIA [id number] [address] [place] [address] [place] Neutrophils/100 WBC (Bld) 51.6 % Normal [facility] Comment on above: Order Comment: Speci men Type: BLOOD SPECIMEN Ordering Facility: [facility] Address: [address] [place] [address] Performed By: #### 5 7021-8 #### [facility] CLIA [id number] [address] [place] [address] [place] Nucleated RBC (Bld) [#/Vol] 10*3/uL Normal <0.01 [facility] Comment on above: Order Comment: Speci men Type: BLOOD SPECIMEN Ordering Facility: [facility] Address: [address] [place] [address] Performed By: #### 5 7021-8 #### [facility] CLIA [id number] [address] [place] [address] [place] Nucleated RBC/100 WBC (Bld) [Ratio] 0.0 /100 WBC Normal [facility] Comment on above: Order Comment: Speci men Type: BLOOD SPECIMEN Ordering Facility: [facility] Address: [address] [place] [address] Performed By: #### 5 7021-8 #### [facility] CLIA [id number] [address] [place] [address] [place] Platelet mean volume (Bld) [Entitic vol] 11.5 fL Normal 9.0-12.7 [facility] Comment on above: Order Comment: Speci men Type: BLOOD SPECIMEN Ordering Facility: [facility] Address: [address] [place] [address] Performed By: #### 5 7021-8 #### [facility] CLIA [id number] [address] [place] [address] [place] Platelets (Bld) [#/Vol] 319 10*3/uL Normal 150-400 [facility] Comment on above: Order Comment: Speci men Type: BLOOD SPECIMEN Ordering Facility: [facility] Address: [address] [place] [address] Performed By: #### 5 7021-8 #### [facility] CLIA [id number] [address] [place] [address] [place] RBC (Bld) [#/Vol] 4.83 10*6/uL Normal 3.90-5.20 [facility] Comment on above: Order Comment: Speci men Type: BLOOD SPECIMEN Ordering Facility: [facility] Address: [address] [place] [address] Performed By: #### 5 7021-8 #### [facility] CLIA [id number] [address] [place] [address] [place] WBC (Bld) [#/Vol] 8.64 10*3/uL Normal 3.70-11.00 [facility] Comment on above: Order Comment: Speci men Type: BLOOD SPECIMEN Ordering Facility: [facility] Address: [address] [place] [address] Performed By: #### 5 7021-8 #### [facility] CLIA [id number] [address] [place] [address] [place] CCF CBC W AUTO DIFF BLDon Basophils/100 WBC (Bld) 1.2 % [facility] BASOPHILS # BLD AUTO 0.1 [facility] DIFFERENTIAL METHOD BLD Auto [facility] EOSINOPHIL # BLD AUTO 0.[address] [facility] LYMPHOCYTES # BLD AUTO 2.89 [facility] MONOCYTES # BLD AUTO 0.66 [facility] NEUTROPHILS # BLD AUTO 4.45 [facility] NRBC # BLD AUTO <0.01 [facility] NRBC/100 WBC BLD-RTO 0 /100 WBC [facility] PLATELET # BLD AUTO 319 [facility] PMV BLD AUTO 11.5 fL 9.0 - 12.7 fL [facility] WBC # BLD AUTO 8.64 [facility] Eosinophils/100 WBC (Bld) 6 % [facility] Erythrocyte distribution width (RBC) [Ratio] 12.5 % 11.5 - 15.0 % [facility] Hematocrit (Bld) [Volume fraction] 44.2 % 36.0 - 46.0 % [facility] Hemoglobin (Bld) [Mass/Vol] 13.8 g/dL 11.5 - 15.5 g/dL [facility] IMM GRANULOCYTES # BLD AUTO <0.03 [facility] IMM GRANULOCYTES/LEUK NFR BLD AUTO 0.2 % [facility] Interpretation and review of laboratory results Abnormal [facility] Lymphocytes/100 WBC (Bld) 33.4 % [facility] MCH (RBC) [Entitic mass] 28.6 pg 26.0 - 34.0 pg [facility] MCHC (RBC) [Mass/Vol] 31.2 g/dL 30.5 - 36.0 g/dL [facility] MCV (RBC) [Entitic vol] 91.5 fL 80.0 - 100.0 fL [facility] Monocytes/100 WBC (Bld) 7.6 % [facility] Neutrophils/100 WBC (Bld) 51.6 % [facility] RBC (Bld) [#/Vol] 4.83 10*6/uL 3.90 - 5.2 0 m/uL [facility] Specimen Type: BLOOD SPECIMEN Ordering Facility: [facility] Address: [address] [place] [address] Original Ordering Provider: [facility]-2024 ECG COMPLETE Ventricular Rate : 79 BPM Atrial Rate : 79 BPM P-R Interval : 124 ms QRS Duration : 102 ms Q-T Interval : 390 ms QTC Calculation(Bazett) : 447 ms Calculated P [place] : 56 degrees Calculated R [place] : 72 degrees Calculated T [place] : 65 degrees NORMAL SINUS RHYTHM NORMAL ECG Confirmed by PETR LUCIANO MD ([id number]) on 2024 2:12:45 PM NAME : STACEY SAHU PID : [id number] : 1975 Gender : Female Race : ORD : [id number] Procedure Date : Jun 05 2024 10:36:34 Edit Date : 2024 14:15:04 Diagnosis: NORMAL SINUS RHYTHM NORMAL ECG Confirmed by PETR LUCIANO MD ([id number]) on 2024 2:12:45 PM Test Reason : PRE OP Location : 545 : [facility] Overread By : PETR LUCIANO MD Edited By : PETR LUCIANO MD Referred By : LOIS MCKEON Acquired by : Lay CHOW [facility] Ferritin SerPl-ncon 2023 Ferritin [Mass/Vol] 129.0 ng/mL Normal 14.7-205.1 [facility] Comment on above: Order Comment: Speci men Type: BLOOD SPECIMENOrdering Facility: [facility] Address: [address] [place] [address] Performed By: #### 5 0190-8, 08828-2, 2276-4 ####[facility] LABCLIA [id number] [place] [address] [place] HISTORY PHYSICALon HISTORY PHYSICAL HNO ID: [id number] Author: NEGRITA TEJEDA APRN.CNP Service: ? Author Type: Nurse Practitioner Type: H&P Filed: 06/06/2024 10:26 Note Text: [facility] HISTORY AND PHYSICAL EXAMINATION SERVICE DATE: 06/05/2024 SERVICE TIME: 9:56 AM PRIMARY CARE PHYSICIAN: Essie Ryan CNP, YARD ASSISTANT REASON FOR VISIT: Stacey Sahu is a [...] STOP-Bang Score: 0 (Non-compliant with CPAP ) [id number] Score: Age: <65 Sex: female [id number] Score: ARISCAT Score: Age: <=50 Preoperative SpO2: [...] x 4 Crohn's disease without complication (HCC) [id number] Pulmonary Htn (Hcc) Obese Nirmala (Obstructive Sleep [...] (obstructive slee (more content not included)... Normal [facility] Iron and Iron binding capaci ty panelon 06-05-2024 Iron [Mass/Vol] 91 ug/dL Normal 41-186 [facility] Comment on above: Order Comment: Speci men Type: BLOOD SPECIMENOrdering Facility: [facility] Address: [address] [place] [address] [place] [address] Performed By: #### 5 0190-8, 92474-2, 4 ####[facility] LABIA [id number] [place] [address] [place] Iron binding capacity [Mass/Vol] Normal [facility] Comment on above: Order Comment: Speci men Type: BLOOD SPECIMENOrdering Facility: [facility] Address: [address] [place] [address] Result Comment: Unab le to calculate due to hemolysis. Performed By: #### 5 0190-8, 94313-6, 2275- ####[facility] [id number] [place] [address] [place] Iron/TIBC [Molar ratio] Normal [facility] Comment on above: Order Comment: Speci men Type: BLOOD SPECIMENOrdering Facility: [facility] Address: [address] [place] [address] Result Comment: Unab le to calculate due to hemolysis. Performed By: #### 5 0190-8, 32476-3, 4 ####[facility] [id number] [address] [place] 05-09-2024 CNPN Telephone (ABHINAV) ---- STACEY SAHU ([id number]) 1975 F Date Time Provider Department 05/09/24 LOIS MCKEON During your visit today, we recorded the following information about you: Lee Ann Valladares 05/09/2024 12:59 PM Signed PSS calling from Dr Rossi's office to ask how soon the PT could be scheduled for surgery for inspire implant, nerve stimulator. General for 3 hours. Please advise [phone] ask to speak with Alejandra or [place]. Allergies As of Date: 05/09/2024 Noted Allergy Reaction PENICILLINS 07/27/2016 16 - Unknown Date Reviewed: 04/16/2024 Reviewed by: Clarissa Nelson MA - Fully Assessed Reason for Visit: Question [0746] Cmt: See note Prescriptions as of 06/01/2024 [...] [E78.49] 12/14/2020 Encounter Status:Closed by LEE ANN AVLLADARES on 06/01/24 [facility] CNOVon 04-16-2024 CNOV Office Visit (ORTHST) ---- STACEY SAHU ([id number]) 1975 F Date Time Provider Department 04/16/24 [...] Order(s):CONSULT TO PHYSICAL THERAPY [9032] Order #: [id number]: 1 FUTURE BATH/SHOWER CHAIR [[id number]] Order #: [id number] TOILET RAIL, EACH [[id number]] Order #: [id number] RAISED TOILET SEAT [[id number]] Order #: [id number] WALKER FOLDING WHEELED W/O S [[id number]] Order #: [id number] Prescriptions as of 04/16/2024 - atorvastatin (LIPITOR) [...] Encounter Status:Closed by LOIS MCKEON on 04/16/24 [facility] CNOVon 03-19-2024 CNOV Office Visit (OTMBHT) ---- STACEY SAHU ([id number]) 1975 F Date Time Provider Department 03/19/24 9:30 AM [facility] During your visit today, we recorded the following information about you: Clarissa Zacarias, PATIENCE 03/19/2024 10:[address] Mckeon has ordered a cream that will be delivered to your home. The company, [employer], will call or text you from a [phone] phone number. Please reply or answer the [...] her quality of life. 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 Pain [...] - Fully Assessed Reason for Visit: New [[id number]] Cmt: Surgical consult Primary Visit Diagnosis:Pain of right hip [M25.551] Other Visit Diagnosis:Primary osteoarthritis of right hip [M16.11] Order(s):MRI HIP WO IVCON RIGHT [[id number]] Order #: [id number] FUTURE Prescriptions as of 03/19/2024 - atorvastatin [...] be delivered to your home. The company, [employer], will call or text you from a [phone] phone number. Please reply or answer the call to start the process. If you do not hear from them within 48 hours, please call . Letter Text Encounter Status:Closed by LOIS MCKEON on 03/19/24 Normal [facility] XR HIP 3V PELV+ AP/LAT RTon [...] Mild right hip osteoarthritis, similar to 11/17/2021. Synthetic Cloth Binding Cutter: AGAPITO Transcribe Date/Time: Mar 19 2024 9:10A Dictated by : MELISSA MODI MD This examination was interpreted and the report reviewed and electronically signed by: MELISSA MODI MD on Mar 19 2024 9:11AM EST [id number] Normal [facility] XR Pelvis and Hip - right AP and Lateral frogon 03-19-2024 IMPRESSION: Mild right hip osteoarthritis, similar to 11/17/2021. Synthetic Cloth Binding Cutter: PSCB Transcribe Date/Time: Mar 19 2024 9:10A [...] right lower quadrant. DIVISION OF RADIOLOGY Provider, [facility] [place] - 03/19/2024 * * *Final Report* * [...] Mild right hip osteoarthritis, similar to 11/17/2021. Synthetic Cloth Binding Cutter: AGAPITO Transcribe Date/Time: Mar 19 2024 9:10A Dictated by : MELISSA MODI MD This examination was interpreted and the report reviewed and electronically signed by: MELISSA MODI MD on Mar 19 2024 9:11AM EST [facility] Radiology Study observation (narrative) [facility] XR Pelvis and Hip - right AP and Lateral frogOrdered By: Ccf Provider on 03-19-2024 [facility] CNPNon 03-18-2024 CNPN Telephone (OTMBHT) ---- STACEY SAHU ([id number]) 1975 F Date Time Provider Department 03/18/24 LOIS CMKEON [facility] During your visit today, we recorded the following information about you: Lupe Betancourt 03/18/2024 4:00 PM Signed Name of Caller: stacey Relationship to patient: patient Last visit in this department: Visit date not found Reason for Call: Other : has questions about what to expect at her appt on 03/19 Callback number: [phone] Clarissa Zacarias RN 03/18/2024 4:57 PM Signed [...] Status:Closed by LUPE BETANCOURT on 03/22/24 Normal [facility] 29on 03-06-2024 29 Addended by: KAMINI LOVE on: 03/08/2024 11:39 AM Modules accepted: Orders Normal [facility] ALL LIPID PROFILE (FASTING)o n 03-06-2024 CHOL [...] HIGH CARDIOVASCULAR RISK Magnesium [Mass/Vol] 150.0 mg/dL [facility] Comment on above: <100 mg/dl OPTIMAL 100-129 mg/dl NEAR OR ABOVE OPTIMAL 130-159 mg/dl BORDERLINE HIGH 160-189 mg/dl HIGH >190 mg/dl VERY HIGH Magnesium [Mass/Vol] 19.6 mg/dL [facility] Triglyceride [Mass/Vol] 98 mg/dL NINF - 150 mg/dL [facility] Albumin [Mass/Vol] 3.2 g/dL Low 3.4 - 5.0 g/dL [facility] ALBUMIN GLOBULIN RATIO 1.0 [facility] ALP [Catalytic activity/Vol] 59 U/L 46 - 116 U/L [facility] ALT [Catalytic activity/Vol] 23 U/L 14 - 59 U/L [facility] AST [Catalytic activity/Vol] 14 U/L Low 15 - 37 U/L [facility] Bilirubin [Mass/Vol] 0.3 mg/dL 0.2 - 1 .0 mg/dL [facility] Bilirubin.indirect [Mass/Vol] 0.1 mg/dL 0.0 - 0.2 mg/dL [facility] Globulin (S) [Mass/Vol] 3.2 g/dL [facility] Protein [Mass/Vol] 6.4 g/dL 6.4 - 8.2 g/dL [facility] No Panel Informationon 03-06 Interpretation and review of laboratory results Abnormal [facility] [facility]24 Follow-up visit [id number] Stacey Sahu 1975 Date Provider Department Center 03/06/2024 TRINH BASHIR [facility] SLEEP [facility] Family History Problem Relation Age of Onset Coronary artery disease Father Family Status - Relation Status Age at Father Level of Service:41881 [place] OFFICE/OUTPATIENT NEW MODERATE MDM 45 MINUTES Reason for Visit and Comments: New Patient [632] - Pt was referred for an [facility] sleep apnea evaluation. Pt follows with pulmonary, Dr. Rosa in [place]. [facility] Follow-up visit [id number] Stacey Sahu 1975 F Date Provider Department Center 03/06/2024 TINO PRATER RAVI [facility] Family History Problem Relation Age of Onset Coronary artery disease Father Family Status - Relation Status Age at Father Level of Service:10826 [place] OFFICE/OUTPATIENT ESTABLISHED LOW MDM 20 MIN Normal [facility] COVID/FLU/RSV RT-PCRon 07-11 SARS-CoV-2 (COVID-19) RNA IZAIAH+probe Ql (Unsp spec) Positive [facility] [employer] Other COVID/FLU/RSV RT-PCR Negative [facility] Other CHEMISTRYOrdered By: SYSTEM SYSTEM on 02-01-2023 [...] : 1975 Gender:F Ordering : [place] [facility] Admission #: [id number] Family : Order #: [id number] CLICK HERE TO VIEW EXAM ECHOCARDIOGRAM REPORT [...] M.D. on 11/22/2022 at 17:44 Normal [facility] US THYROID FN ASP BXon 10-28 THYROID FN ASP BX Begin Addendum #1 COLLECTED DATE/TIME: 10/18/2022 13:19 EDT Final Diagnosis Report for [facility] [place] (A/B) SOFT TISSUE MASS CEPHALAD TO THYROID; FINE NEEDLE ASPIRATION: -ATYPIA OF UNDETERMINED SIGNIFICANCE. -CYST CONTENT. NOTE: Sparsely cellular aspirate compromised of follicular cells with architectural atypia. Molecular testing or a repeat aspirate may be helpful if clinically indicated. The final diagnosis is based on a microscopic exam of teleservices representative sections. 10/25/[address] Caceres. [...] (FNA). 2. Pathology results are pending. Normal [facility] XR KUB 1 VIEWon 10-27-2022 XR KUB [...] by: PAULETTE GALVAN Date: 2022-10-27 07:19 Normal [facility] CT NECK ST W CONon CT NECK [...] PREET RODRIGEZ Date: 2022-10-05 08:22 Normal [facility] CARDIAC DENZEL ADMITon 023 CK [Catalytic activity/Vol] 149 U/L Normal 26-192 [facility] Comment on above: Performed By: #### SHIVANI HARPER, CMP ####[facility] [address] [place] [id number]. Nita Iverson CK.MB [Mass/Vol] 1.51 ng/mL Normal <=3.60 [facility] Comment on above: Performed By: #### SHIVANI HARPER, CMP ####[facility] [address] [place] [id number]. Nita Iverson HSTROP 4.1 pg/mL Normal 4.0-51.3 [facility] Comment on above: Result Comment: CUT- OFF POINTS HAVE BEEN ESTABLISHED BASED ON THE FOURTH UNIVERSAL DEFINITIONS OF MYOCARDIAL INFARCTION. THE UPPER REFERENCE LIMIT (URL) OF TROPONIN, DEFINED THE 99TH PERCENTILE OF cTnI DISTRIBUTION IN A REFERENCE POPULATION, HAS BEEN CONFIRMED THE DECISION THRESHOLD FOR NM DIAGNOSIS. Performed By: #### SHIVANI HARPER, CMP ####[facility] [address] [place] [id number]. Nita Iverson ARIES 47 ng/mL Normal 9-82 [facility] Comment on above: Performed By: #### SHIVANI HARPER, CMP ####[facility] [address] [place] [address]Dr. Nita Iverson CBC AUTO DIFFon 09-21-2022 BASO # 0.1 103/ul Normal 0.0-0.1 [facility] Comment on above: Performed By: #### C BC #### [facility] [address] [address] [address] Nita Iverson Basophils/100 WBC (Bld) 0.8 % Normal 0.2-2.0 [facility] Comment on above: Performed By: #### C BC #### [facility] [address] [address] [address] Nita Iverson EO # 0.7 103/ul Normal 0.0-0.7 [facility] Comment on above: Performed By: #### C BC #### [facility] [address] [address] [address] Nita Iverson Eosinophils/100 WBC (Bld) 7.1 % Critically high 0.9-7.0 [facility] Comment on above: Performed By: #### C BC #### [facility] [address] [address] [address] Nita Iverson Erythrocyte distribution width (RBC) [Ratio] 12.3 % Normal 11.0-15.0 [facility] Comment on above: Performed By: #### C BC #### [facility] [address] [place] [address] Dr. Nita Iverson Hematocrit (Bld) [Volume fraction] 40.1 % Normal 36.0-48.0 [facility] Comment on above: Performed By: #### C BC #### [facility] [address] [address] [address] Nita Iverson Hemoglobin (Bld) [Mass/Vol] 13.6 g/dL Normal 12.0-16.0 [facility] Comment on above: Performed By: #### C BC #### [facility] [address] [address] [address] Nita Iverson IG # 0.02 10e3/ul Normal 0.00-0.03 [facility] Comment on above: Performed By: #### C BC #### [facility] [address] [place] [address] Dr. Nita Iverson IG % 0.2 % Normal 0.0-0.5 [facility] Comment on above: Performed By: #### C BC #### [facility] [address] [place] [address] Dr. Nita Iverson LYMPH # 3.0 103/ul Normal 1.2-3.8 [facility] Comment on above: Performed By: #### C BC #### [facility] [address] [place] [address] Dr. Nita Iverson Lymphocytes/100 WBC (Bld) 30.2 % Normal 20.5-60.0 [facility] Comment on above: Performed By: #### C BC #### [facility] [address] [place] [address] Dr. Nita Iverson MANUAL DIFF REQ NO Normal [facility] Comment on above: Performed By: #### C BC #### [facility] [address] [place] [address] Dr. Nita Iverson MCH (RBC) [Entitic mass] 30.0 pg Normal 26.7-34.0 [facility] Comment on above: Performed By: #### C BC #### [facility] [address] [place] [address] Dr. Nita Iverson MCHC (RBC) [Mass/Vol] 33.9 g/dL Normal 29.9-35.2 [facility] Comment on above: Performed By: #### C BC #### [facility] [address] [place] [address] Dr. Nita Iverson MCV (RBC) [Entitic vol] 88.3 fL Normal 81.0-99.0 [facility] Comment on above: Performed By: #### C BC #### [facility] [address] [place] [address] Dr. Nita Iverson MONO # 0.8 103/ul Normal 0.3-0.8 [facility] Comment on above: Performed By: #### C BC #### [facility] [address] [place] [address] Dr. Nita Iverson Monocytes/100 WBC (Bld) 7.8 % Normal 1.7-12.0 [facility] Comment on above: Performed By: #### C BC #### [facility] [address] [place] [address] Dr. Nita Iverson NEUT # 5.4 103/ul Normal 1.4-6.5 [facility] Comment on above: Performed By: #### C BC #### [facility] [address] [place] [address] Dr. Nita Iverson Neutrophils/100 WBC (Bld) 53.9 % Normal 43.0-75.0 [facility] Comment on above: Performed By: #### C BC #### [facility] [address] [place] [address] Dr. Nita Iverson Platelet mean volume (Bld) [Entitic vol] 10.4 fL Normal 9.5-13.5 [facility] Comment on above: Performed By: #### C BC #### [facility] [address] [place] [address] Dr. Nita Iverson PLT 270 103/ul Normal 150-450 [facility] Comment on above: Performed By: #### C BC #### [facility] [address] [place] [address] Dr. Nita Iverson RBC 4.54 106/ul Normal 4.20-5.40 [facility] Comment on above: Performed By: #### C BC #### [facility] [address] [place] [address] Dr. Nita Iverson WBC 10.0 103/ul Normal 4.0-11.0 [facility] Comment on above: Performed By: #### C BC #### [facility] [address] [place] [address] ABD/PELV W CONon [...] MISTY SPEARS Date: 2022-09-21 21:41 Normal [facility] ER URINE PROFILEon 3 Bilirubin Ql (U) Negative Normal NEGATIVE [facility] Comment on above: Performed By: #### U MICRO, ERUR, PREGU ####[facility] [address] [place] [address]Dr. Nita Iverson Clarity (U) CLEAR Normal CLEAR [facility] Comment on above: Performed By: #### U MICRO, ERUR, PREGU ####[facility] [address] [place] [id number]. Nita Iverson Color (U) LT. YELLOW Normal YELLOW [facility] Comment on above: Performed By: #### U MICRO, ERUR, PREGU ####[facility] [address] [place] [address]Dr. Nita SOMMERS A micrscopic examination will be performed if indicated. Normal [facility] Comment on above: Performed By: #### U MICRO, ERUR, PREGU ####[facility] [address] [place] [address]Dr. Nita Iverson Glucose Ql (U) Negative Normal NEGATIVE [facility] Comment on above: Performed By: #### U MICRO, ERUR, PREGU ####[facility] [address] [place] [address]Dr. Nita Iverson Hemoglobin Ql (U) LARGE Abnormal NEGATIVE [facility] Comment on above: Performed By: #### U MICRO, ERUR, PREGU ####[facility] [address] [place] [address]Dr. Nita Iverson Ketones Ql (U) Negative Normal NEGATIVE [facility] Comment on above: Performed By: #### U MICRO, ERUR, PREGU ####[facility] [address] [place], [place] [address]Dr. Nita Iverson LEUKOCYTES Negative Normal NEGATIVE [facility] Comment on above: Performed By: #### U MICRO, ERUR, PREGU ####[facility] [address] [place] [address]Dr. Nita Iverson Nitrite Ql (U) Negative Normal NEGATIVE [facility] Comment on above: Performed By: #### U MICRO, ERUR, PREGU ####[facility] [address] [place] [address]Dr. Nita Iverson pH (U) 6.5 [pH] Normal 5-9 [facility] Comment on above: Performed By: #### U MICRO, ERUR, PREGU ####[facility] [address] [place], [place] [address]Dr. Nita Iverson SPEC GRAVITY 1.020 Normal 1.005-<=1.02 5 [facility] Comment on above: Performed By: #### U MICRO, ERUR, PREGU ####[facility] [address] [place] [address]Dr. Nita Iverson UA PROTEIN Negative Normal NEGATIVE/ TRACE [facility] Comment on above: Performed By: #### U MICRO, ERUR, PREGU ####[facility] [address] [place] [address]Dr. Nita Iverson UR MICRO IND INDICATED Normal [facility] Comment on above: Performed By: #### U MICRO, ERUR, PREGU ####[facility] [address] [place] [address]Dr. Nita Iverson Urobilinogen Qn (U) 1.0 {Senait'U}/dL Normal 0.2 - 1. 0 [facility] Comment on above: Performed By: #### U MICRO, ERUR, PREGU ####[facility] [address] [place] [address]Dr. Nita Iverson LIPASEon 09-21-2022 Lipase [Catalytic activity/Vol] 89.0 U/L Normal 73.0-393.0 [facility] Comment on above: Performed By: #### C MADMarita, LIPA, CMP ####[facility] [address] [place] [address]DrMaribel Iverson URon 09-21-2022 , QUAL Negative Normal NEGATIVE [facility] Comment on above: Performed By: #### U MICRO, ERUR, PREGU ####[facility] [address] [place] [address]DrMaribel Iverson PROF 14(COMP METB)on 023 Albumin [Mass/Vol] 3.5 g/dL Normal 3.4-5.0 [facility] Comment on above: Performed By: #### C MADM, LIPA, CMP #### [facility] [address] [address] [address] Nita Iverson Albumin/Globulin [Mass ratio] 1.0 {ratio} Normal [facility] Comment on above: Performed By: #### C MADM, LIPA, CMP #### [facility] [address] [address] [address] Nita Iverson ALP [Catalytic activity/Vol] 67 U/L Normal 46-116 [facility] Comment on above: Performed By: #### C JANETH DENSONA, CMP #### [facility] [address] [address] [address] Nita Iverson ALT [Catalytic activity/Vol] 30 U/L Normal 14-59 [facility] Comment on above: Performed By: #### C JARETT LIPA, CMP #### [facility] [address] [address] [address] Nita Iverson Anion gap [Moles/Vol] 11.8 mmol/L Normal [facility] Comment on above: Performed By: #### C JARETT LIPA, CMP #### [facility] [address] [place] [address] Dr. Nita Iverson AST [Catalytic activity/Vol] 25 U/L Normal 15-37 [facility] Comment on above: Performed By: #### C JARETT LIPA, CMP #### [facility] [address] [place] [address] Dr. Nita Iverson Bilirubin [Mass/Vol] 0.3 mg/dL Normal 0.2-1.0 [facility] Comment on above: Performed By: #### C JARETT LIPA, CMP #### [facility] [address] [place] [address] Dr. Nita Iverson Calcium [Mass/Vol] 9.2 mg/dL Normal 8.5-10.1 [facility] Comment on above: Performed By: #### C JARETT LIPA, CMP #### [facility] [address] [place] [address] Dr. Nita Iverson Chloride [Moles/Vol] 106 mmol/L Normal 98-107 [facility] Comment on above: Performed By: #### C JARETT LIPA, CMP #### [facility] [address] [place] [address] Dr. Nita Iverson CO2 [Moles/Vol] 28.7 mmol/L Normal 21.0-32.0 [facility] Comment on above: Performed By: #### C JANETH DENSONA, CMP #### [facility] [address] [address] [address] Nita Iverson Creatinine [Mass/Vol] 0.81 mg/dL Normal 0.55-1.02 [facility] Comment on above: Performed By: #### C MADM, LIPA, CMP #### [facility] [address] [address] [address] Nita Iverson EGFR-AF WALLISIAN >60 Normal >=60 [facility] Comment on above: Performed By: #### C MADM, LIPA, CMP #### [facility] [address] [address] [address] Nita Iverson EGFR-NON AF WALLISIAN >60 Normal >=60 [facility] Comment on above: Performed By: #### C MADM, LIPA, CMP #### [facility] [address] [address] [address] Nita Iverson Globulin (S) [Mass/Vol] 3.5 g/dL Normal [facility] Comment on above: Performed By: #### C MADM, LIPA, CMP #### [facility] [address] [address] [address] Nita Iverson Glucose [Mass/Vol] 106 mg/dL Normal 74-106 [facility] Comment on above: Performed By: #### C MADM, LIPA, CMP #### [facility] [address] [address] [address] Nita Iverson Potassium [Moles/Vol] 4.5 mmol/L Normal 3.5-5.1 [facility] Comment on above: Performed By: #### C MADM, LIPA, CMP #### [facility] [address] [address] [address] Nita Iverson Protein [Mass/Vol] 7.0 g/dL Normal 6.4-8.2 [facility] Comment on above: Performed By: #### C MADM, LIPA, CMP #### [facility] [address] [address] [address] Nita Iverson Sodium [Moles/Vol] 142 mmol/L Normal 136-145 [facility] Comment on above: Performed By: #### C SHIVANI DENSON, CMP #### [facility] [address] [address] [address] Nita Iverson Urea nitrogen [Mass/Vol] 12.0 mg/dL Normal 7.0-18.0 [facility] Comment on above: Performed By: #### C SHIVANI DENSON, CMP #### [facility] [address] [address] [address] Nita Iverson Urea nitrogen/Creatinine [Mass ratio] 14.8 mg/mg Normal [facility] Comment on above: Performed By: #### C SHIVANI DENSON, CMP #### [facility] [address] [address] [address] Nita Iverson URINE MICROSCOPIC ONLYon BACTERIA NONE SEEN Normal NONE SEEN [facility] Comment on above: Performed By: #### U MICRO, ERUR, PREGU ####[facility] [address] [place] [address]Dr. Nita Iverson Bacteria identified Cx Nom (U) NOT INDICATED Normal [facility] Comment on above: Performed By: #### U MICRO, ERUR, PREGU ####[facility] [address] [place] [address]DrMaribel Iverson CAST NONE SEEN Normal NONE SEEN [facility] Comment on above: Performed By: #### U MICRO, ERUR, PREGU ####[facility] [address] [place] [address]DrMaribel Iverson Crystals LM Nom (Urine sed) NONE SEEN Normal NONE SEEN [facility] Comment on above: Performed By: #### U MICRO, ERUR, PREGU ####[facility] [address] [place] [address]DrMaribel Iverson Epithelial cells LM Ql (Urine sed) RARE Normal NONE SEEN /RARE [facility] Comment on above: Performed By: #### U MICRO, ERUR, PREGU ####[facility] [address] [place] [address]Dr. Yilan Iverson MUCOUS NONE SEEN Normal NONE SEEN [facility] Comment on above: Performed By: #### U MICRO, ERUR, PREGU ####[facility] [address] [place], [place] [address]Gt. Nita Iverson RBC 20-50 Abnormal 0-2 [facility] Comment on above: Performed By: #### U MICRO, ERUR, PREGU ####[facility] [address] [place], [place] [address]Pt. Nita Iverson WBC 2-5 Abnormal NONE SEEN [facility] Comment on above: Performed By: #### U MICRO, ERUR, PREGU ####[facility] [address] [place], [place] [address]Ve. Nita Iverson US THYROIDon 09-06-2022 US THYROID [...] PREET RODRIGEZ Date: 2022-09-06 20:19 Normal [facility] MRI HIP RT WO CONon 08-19-19 MRI HIP RT WO CON EXAM: MRI HIP RT WO CON HISTORY: Right hip pain COMPARISON: X-rays 07/07/2022 TECHNIQUE: Axial and coronal large zvszx-ry-kmzz sequencing through the pelvis and both hips. Small iignz-bj-llvh coronal, sagittal and axial sequencing through the [...] at approximately the 11:00 position (coronal small wpkhi-rw-kgvb 14). The remainder of the labrum exhibits no gross irregularity. The left acetabulum is normal. The bilateral femoral head and acetabular cartilage exhibits no chondral or osteochondral irregularity. The pubic symphysis and sacroiliac joints are normal. Thickening and interstitial edema of the right gluteus medius tendon insertion to the greater trochanter (coronal small dcqtu-bn-drht 13 and axial large kvrms-aa-fxoj 23). Mild amount of adjacent edema. No abnormal bursal fluid collection. Questionable mild thickening and interstitial edema of the left gluteus minimus tendon (coronal large cfurm-aa-prde 17 and axial large puiha-bu-evma 23 and to a lesser degree the gluteus medius tendon (coronal large nbnqv-nd-hrws 21). No tendon tear, tendon tear or [...] PAULETTE PHIPPS Date: 2022-08-18 22:39 Normal [facility] PAP ACOG PANEL 2: 30 to 65on 08-11-2022 . . Normal [facility] Comment on above: Result Comment: Perf ormed at: WB Performed By: #### [id number] ####[facility] [address] [place] [address]DrMaribel Iverson Age Gdln ACOG Testing 30-65 Normal [facility] Comment on above: Performed By: #### 4 [id number] ####[facility] [address] [place] [address]Dr. Nita Iverson DIAGNOSIS: Comment Normal [facility] Comment on above: Result Comment: NEGA TIVE FOR INTRAEPITHELIAL LESION OR MALIGNANCY. Performed at: WB Performed By: #### 4 [id number] ####[facility] [address] [place], [place] [address]DrMaribel Iverson HPV Aptima Negative Normal Negative [facility] Comment on above: Result Comment: This nucleic acid amplification test detects fourteen high-risk HPV types (16,18,31,33,35,39,45,51,52,56,58,59,66,68) without differentiation. Performed at: =G Performed By: #### [id number] ####[facility] [address] [place] [address]Dr. Nita Iverson HPV Genotype Reflex Comment Normal [facility] Comment on above: Result Comment: Crit eria not met, HPV Genotype not performed. Performed at: WB Performed By: #### [id number] ####[facility] [address] [place], [place] [address]DrMaribel Iverson Methodology: Comment Normal [facility] Comment on above: Result Comment: This liquid based ThinPrep(R) pap test was screened with the use of an image guided system. Performed at: WB Performed By: #### 4 [id number] ####[facility] [address] [place], [place] [address]DrMaribel Iverson Note: Comment Normal [facility] Comment on above: Result Comment: The Pap smear is a screening test designed to aid in the detection of premalignant and malignant conditions of the uterine cervix. It is not a diagnostic procedure and should not be used as the sole means of detecting cervical cancer. Both false-positive and false-negative reports do occur. . Performed at: WB Performed By: #### [id number] ####[facility] [address] [place] [id number]. Nita Iverson Performed by: Comment Normal [facility] Comment on above: Result Comment: Jordana Pruett, Director Of Analytical Development (ASCP) Performed at: WB Performed By: #### [id number] ####[facility] [address] [place] [id number]. Janniejennifer Iverson Specimen adequacy: Comment Normal [facility] Comment on above: Result Comment: Sati sfactory for evaluation. No endocervical component is identified. Performed at: WB Performed By: #### 4 [id number] ####[facility] [address] [place] [address]Dr. Nita Iverson US PELVIS AND TRANSVAGon US [...] PAULETTE GALVAN Date: 2022-06-06 17:51 Normal [facility] CT ABD/PELV WO W CONon 04-25 CT [...] by: PREET RODRIGEZ Date: 2022-04-25 08:09 Normal [facility] RENAL W_WO PHARMon 2021 PA RENAL W_WO [...] PAULETTE GALVAN Date: 2022-03-22 17:23 Normal [facility] XR KUB 1 VIEWon 03-22-2022 XR KUB [...] PAULETTE GALVAN Date: 2022-03-22 17:57 Normal [facility] US THYROIDon 03-09-2022 US THYROID EXAMINATION: US [...] IMPRESSION: Multinodular goiter, grossly stable TI-RADS: The [employer] TI-RADS committee's white paper recommendations for thyroid lesions classified as TR4 (moderately suspicious) are listed below: > 1.0 cm. Follow-up ultrasound in 1, 2, 3, and 5 years. > 1.5 cm. FNA. J. Am Rosendo Radiol 2017;14:587-595. Electronically authenticated by: PAULETTE GALVAN Date: 2022-03-09 07:07 Normal [facility] CT ABD/PELV WO W CONon 03-07 CT [...] by: PREET RODRIGEZ Date: 2022-03-07 16:45 Normal [facility] MG MAMM SCREEN 3D GRACIE CADon 02-09-2022 MG MAMM SCREEN 3D GRACIE CAD Patient: STACEY SAHU Exam Date: 02/09/2022 : 1975 Gender:F Ordering : NIURKA RYAN [facility] Admission #: [id number] Family : Order #: [id number] CLICK HERE TO VIEW EXAM RADIOLOGY REPORT [...] colon cancer at age 56. LOCATION: [facility] BREAST COMPOSITION: Scattered areas fibroglandular density. [...] M.D. on 02/09/2022 at 14:53 Normal [facility] Covid-19 PCR (CVDTBH)on SARS-CoV-2 (COVID-19) RNA IZAIAH+probe Ql (Unsp spec) Detected Critically abnormal NOT DETECTED [facility] Comment on above: Result Comment: This test is not yet approved or cleared by the [place] FDA. When there are no FDA-approved or cleared tests available, and other criteria are met, FDA can make tests available under an emergency access mechanism called an Emergency Use Authorization (EUA). The EUA for this test is supported by the Cancer Spec of Health and Human Service's declaration that [...] longer be used). Performed By: #### [facility] #### [facility] [address] [address] [address] Nita Iverson MR femur RT wo/w conon 12-04 MR femur RT wo/w con [facility] [address] [place] [address] MRI Report Signed Patient: Stacey Sahu MR#: [id number] : 1975 Acct:[id number] Age/Sex: 46 / F ADM Date: 12/03/21 Loc: MR Room: Type: [facility] Attending Dr: Alxeis Saenz II, MD Ordering Provider: Alexis Saenz [...] Stock Jr., M.D.12/04/2021 3:45 PM Dictation Location: [place] [address] Transcribed By: [facility] 12/04/21 154 Dictated By: Jorge Luis Stock Jr, MD 12/04/21 1519 Signed By: 12/04/21 1545 [facility] XR femur RT 2V*on 11-17-2021 XR femur RT 2V* [facility] [address] [place] [address] XRay Report Signed Patient: Stacey Sahu MR#: [id number] : 1975 Acct:[id number] Age/Sex: 46 / F ADM Date: 11/17/21 [place] [facility] [place]: Type: [facility] Attending Dr: Alexis Saenz II, MD Ordering Provider: Alexis Saenz MD Date of Service: 11/17/21 XR/XR hip RT min 2V(w/wo pelvis)*: Right hip pain ([id number]) XR/XR femur RT 2V*: Right hip pain [...] Vipin Iniguez M.D.11/17/2021 3:56 PM Dictation Location: [place] [address] Transcribed By: [facility] 11/17/21 1556 Dictated By: Vipin Iniguez DO 11/17/21 155 Signed By: 11/17/21 155 [facility] Large Joint Arthro/Inj: R gr eater trochanteric bursa [facility] Vital Signs Date Time Vital Sign Value Performing Clinician Facility 01-15-2025 11:33-0400 Body height 152.4 cm Essie Aichholz Work Phone: [facility] 01-15-2025 11:33-0400 Body mass index (BMI) [Ratio] 39 kg/m2 Essie Aichholz Work Phone: [facility] 01-15-2025 11:33-0400 Body weight 90.71 kg Essie Aichholz Work Phone: [facility] 01-15-2025 11:33-0400 Diastolic blood pressure 76 mm[Hg] Essie Aichholz Work Phone: [facility] 01-15-2025 11:33-0400 Heart rate 73 /min Essie Aichholz Work Phone: [facility] 01-15-2025 11:33-0400 SaO2% (BldA) [Mass fraction] 97 % Essie Aichholz Work Phone: [facility] 01-15-2025 11:33-0400 Systolic blood pressure 118 mm[Hg] Essie Aichholz Work Phone: [facility] 01-01-2025 13:04-0400 Body mass index (BMI) [Ratio] 39.02 kg/m2 Essie Aichholz SURFACE GRINDER TENDER Work Phone: [facility] 01-01-2025 13:04-0400 Body temperature 97.81 [degF] Essie Aichholz SURFACE GRINDER TENDER Work Phone: [facility] 01-01-2025 13:04-0400 Body weight 90.63 kg Essie Aichholz SURFACE GRINDER TENDER Work Phone: [facility] 01-01-2025 13:04-0400 Diastolic blood pressure 80 mm[Hg] Essie Aichholz SURFACE GRINDER TENDER Work Phone: [facility] 01-01-2025 13:04-0400 Heart rate 86 /min Essie Aichholz SURFACE GRINDER TENDER Work Phone: [facility] 01-01-2025 13:04-0400 Respiratory rate 18 /min Essie Aichholz SURFACE GRINDER TENDER Work Phone: [facility] 01-01-2025 13:04-0400 SaO2% (BldA) [Mass fraction] 97 % Essie Aichholz SURFACE GRINDER TENDER Work Phone: [facility] 01-01-2025 13:04-0400 Systolic blood pressure 108 mm[Hg] Essie Aichholz SURFACE GRINDER TENDER Work Phone: [facility] 09-30-2024 13:39-0400 Body mass index (BMI) [Ratio] 37.89 kg/m2 Essie Aichholz SURFACE GRINDER TENDER Work Phone: [facility] 09-30-2024 13:39-0400 Body temperature 98.6 [degF] Essie Aichholz SURFACE GRINDER TENDER Work Phone: [facility] 09-30-2024 13:39-0400 Body weight 88 kg Essie Aichholz SURFACE GRINDER TENDER Work Phone: [facility] 09-30-2024 13:39-0400 Diastolic blood pressure 90 mm[Hg] Essie Aichholz SURFACE GRINDER TENDER Work Phone: [facility] 09-30-2024 13:39-0400 Heart rate 99 /min Essie Aichholz SURFACE GRINDER TENDER Work Phone: [facility] 09-30-2024 13:39-0400 Respiratory rate 18 /min Essie Aichholz SURFACE GRINDER TENDER Work Phone: [facility] 09-30-2024 13:39-0400 SaO2% (BldA) [Mass fraction] 98 % Essie Aichholz SURFACE GRINDER TENDER Work Phone: [facility] 09-30-2024 13:39-0400 Systolic blood pressure 118 mm[Hg] Essie Aichholz SURFACE GRINDER TENDER Work Phone: [facility] 09-06-2024 08:22-0400 Body height 152.4 cm Jeff Rossi MD Work Phone: [facility] 09-06-2024 08:22-0400 Body mass index (BMI) [Ratio] 37.34 kg/m2 Jeff Rossi MD Work Phone: [facility] 09-06-2024 08:22-0400 Body temperature 97.2 [degF] Jeff Rossi MD Work Phone: [facility] 09-06-2024 08:22-0400 Body weight 86.73 kg Jeff Rossi MD Work Phone: [facility] 08-28-2024 13:28-0500 Body mass index (BMI) [Ratio] 37.46 kg/m2 Essie Aichholz SURFACE GRINDER TENDER Work Phone: [facility] 08-28-2024 13:28-0500 Body temperature 98.49 [degF] Essie Aichholz SURFACE GRINDER TENDER Work Phone: [facility] 08-28-2024 13:28-0500 Body weight 87 kg Essie Aichholz SURFACE GRINDER TENDER Work Phone: [facility] 08-28-2024 13:28-0500 Diastolic blood pressure 86 mm[Hg] Essie Aichholz SURFACE GRINDER TENDER Work Phone: [facility] 08-28-2024 13:28-0500 Heart rate 111 /min Essie Aichholz SURFACE GRINDER TENDER Work Phone: [facility] 08-28-2024 13:28-0500 Respiratory rate 18 /min Essie Aichholz SURFACE GRINDER TENDER Work Phone: [facility] 08-28-2024 13:28-0500 SaO2% (BldA) [Mass fraction] 98 % Essie Aichholz SURFACE GRINDER TENDER Work Phone: [facility] 08-28-2024 13:28-0500 Systolic blood pressure 116 mm[Hg] Essie Aichholz SURFACE GRINDER TENDER Work Phone: [facility] 07-23-2024 14:34-0500 Body height 152.4 cm [facility] 07-23-2024 14:34-0500 Body mass index (BMI) [Ratio] 38.06 kg/m2 [facility] 07-23-2024 14:34-0500 Body temperature 97.81 [degF] [facility] [employer] 07-23-2024 14:34-0500 Body weight 88.4 kg [facility] 07-23-2024 14:34-0500 Diastolic blood pressure 70 mm[Hg] [facility] 07-23-2024 14:34-0500 Heart rate 93 /min [facility] 07-23-2024 14:34-0500 Respiratory rate 16 /min [facility] [employer] [facility] 07-23-2024 14:34-0500 SaO2% (BldA) [Mass fraction] 99 % [facility] 07-23-2024 14:34-0500 Systolic blood pressure 118 mm[Hg] [facility] 06-05-2024 10:47-0500 Diastolic blood pressure 85 mm[Hg] Pacc 3 Work Phone: [facility] 06-05-2024 10:47-0500 Systolic blood pressure 135 mm[Hg] Pacc 3 Work Phone: [facility] 06-05-2024 10:24-0500 Body height 152.4 cm Pacc 3 Work Phone: [facility] 06-05-2024 10:24-0500 Body mass index (BMI) [Ratio] 37.72 kg/m2 Pacc 3 Work Phone: [facility] 06-05-2024 10:24-0500 Body temperature 97.81 [degF] Pacc 3 Work Phone: [facility] 06-05-2024 10:24-0500 Body weight 87.6 kg Pacc 3 Work Phone: [facility] 06-05-2024 10:24-0500 Heart rate 86 /min Pacc 3 Work Phone: [facility] 06-05-2024 10:24-0500 Respiratory rate 16 /min Pacc 3 Work Phone: [facility] 06-05-2024 10:24-0500 SaO2% (BldA) [Mass fraction] 96 % Pacc 3 Work Phone: [facility] 05-29-2024 14:40-0500 Body height 152.4 cm Essie Charliandersonz SURFACE GRINDER TENDER Work Phone: [facility] 05-29-2024 14:40-0500 Body mass index (BMI) [Ratio] 38.04 kg/m2 Essie Charlihholz SURFACE GRINDER TENDER Work Phone: [facility] 05-29-2024 14:40-0500 Body temperature 98.1 [degF] Essie Charlihholz SURFACE GRINDER TENDER Work Phone: [facility] 05-29-2024 14:40-0500 Body weight 88.36 kg Essie Charlihholz SURFACE GRINDER TENDER Work Phone: [facility] 05-29-2024 14:40-0500 Diastolic blood pressure 86 mm[Hg] Essie Charlihholz SURFACE GRINDER TENDER Work Phone: [facility] 05-29-2024 14:40-0500 Heart rate 94 /min Essie Aichholz SURFACE GRINDER TENDER Work Phone: [facility] 05-29-2024 14:40-0500 Respiratory rate 18 /min Essie Aichholz SURFACE GRINDER TENDER Work Phone: [facility] 05-29-2024 14:40-0500 SaO2% (BldA) [Mass fraction] 98 % Essie Charlihholz SURFACE GRINDER TENDER Work Phone: [facility] 05-29-2024 14:40-0500 Systolic blood pressure 110 mm[Hg] Essie Aichholz SURFACE GRINDER TENDER Work Phone: [facility] 05-17-2024 08:00-0500 Body height 152.4 cm Jeff Rossi MD Work Phone: [facility] 05-17-2024 08:00-0500 Body mass index (BMI) [Ratio] 38.24 kg/m2 Jeff Rossi MD Work Phone: [facility] 05-17-2024 08:00-0500 Body temperature 97.9 [degF] Jeff Rossi MD Work Phone: [facility] 05-17-2024 08:00-0500 Body weight 88.81 kg Jeff Rossi MD Work Phone: [facility] 05-06-2024 14:08-0500 Body height 152.4 cm [facility] 05-06-2024 14:08-0500 Body mass index (BMI) [Ratio] 38.28 kg/m2 [facility] 2 [facility] 05-06-2024 14:08-0500 Body weight 88.91 kg [facility] 2 [facility] 04-19-2024 08:28-0400 Body height 152.4 cm Jeff Rossi MD Work Phone: [facility] 04-19-2024 08:28-0400 Body mass index (BMI) [Ratio] 38.24 kg/m2 Jeff Rossi MD Work Phone: [facility] 04-19-2024 08:28-0400 Body temperature 98.1 [degF] Jeff Rossi MD Work Phone: [facility] 04-19-2024 08:28-0400 Body weight 88.81 kg Jeff Rossi MD Work Phone: [facility] 04-10-2024 08:36-0400 Body height 152.4 cm Essie Ryan NP Work Phone: [facility] 04-10-2024 08:36-0400 Body mass index (BMI) [Ratio] 38.16 kg/m2 Essie Ryan NP Work Phone: [facility] 04-10-2024 08:36-0400 Body temperature 98.8 [degF] Essie Charlihholz SURFACE GRINDER TENDER Work Phone: [facility] 04-10-2024 08:36-0400 Body weight 88.63 kg Essie Charlihholz SURFACE GRINDER TENDER Work Phone: [facility] 04-10-2024 08:36-0400 Diastolic blood pressure 88 mm[Hg] Essie Aichholz SURFACE GRINDER TENDER Work Phone: [facility] 04-10-2024 08:36-0400 Heart rate 96 /min Essie Aichholz SURFACE GRINDER TENDER Work Phone: [facility] 04-10-2024 08:36-0400 Respiratory rate 18 /min Essie Charlihholz SURFACE GRINDER TENDER Work Phone: [facility] 04-10-2024 08:36-0400 SaO2% (BldA) [Mass fraction] 98 % Essie Charlihholz SURFACE GRINDER TENDER Work Phone: [facility] 04-10-2024 08:36-0400 Systolic blood pressure 120 mm[Hg] Essie Aichholz SURFACE GRINDER TENDER Work Phone: [facility] 02-29-2024 08:38-0400 Body height 152.4 cm Essie Aichholz SURFACE GRINDER TENDER Work Phone: [facility] 02-29-2024 08:38-0400 Body mass index (BMI) [Ratio] 38.28 kg/m2 Essie Charlihholz SURFACE GRINDER TENDER Work Phone: [facility] 02-29-2024 08:38-0400 Body temperature 97.81 [degF] Essie Aichholz SURFACE GRINDER TENDER Work Phone: [facility] 02-29-2024 08:38-0400 Body weight 88.91 kg Essie Aichholz SURFACE GRINDER TENDER Work Phone: [facility] 02-29-2024 08:38-0400 Diastolic blood pressure 88 mm[Hg] Essie Aichholz SURFACE GRINDER TENDER Work Phone: [facility] 02-29-2024 08:38-0400 Heart rate 97 /min Essie Shelby SURFACE GRINDER TENDER Work Phone: [facility] 02-29-2024 08:38-0400 Respiratory rate 18 /min Essie Augustindilcia SURFACE GRINDER TENDER Work Phone: [facility] 02-29-2024 08:38-0400 SaO2% (BldA) [Mass fraction] 98 % Essie Shelby SURFACE GRINDER TENDER Work Phone: [facility] 02-29-2024 08:38-0400 Systolic blood pressure 122 mm[Hg] Essie Shelby SURFACE GRINDER TENDER Work Phone: [facility] 11-28-2023 09:08-0400 Blood Pressure Location LESLIE ANGELICA [facility] 11-28-2023 09:08-0400 Diastolic blood pressure 84 mm[Hg] LESLIE ANGELICA [facility] 11-28-2023 09:08-0400 Heart rate 82 /min LESLIE ANGELICA [facility] 11-28-2023 09:08-0400 Respiratory rate 16 /min LESLIE ANGELICA [facility] 11-28-2023 09:08-0400 Systolic blood pressure 139 mm[Hg] LESLIE ANGELICA [facility] 09-12-2023 07:42-0400 Diastolic blood pressure 103 mm[Hg] Imani Krueger COMMERCIAL AGENT-YARD ASSISTANT Work Phone: [facility] 09-12-2023 07:42-0400 Heart rate 95 /min Imani Krueger COMMERCIAL AGENT-YARD ASSISTANT Work Phone: [facility] 09-12-2023 07:42-0400 Respiratory rate 18 /min Imani Krueger COMMERCIAL AGENT-YARD ASSISTANT Work Phone: [facility] 09-12-2023 07:42-0400 SaO2% (BldA) [Mass fraction] 99 % Imani Krueger COMMERCIAL AGENT-YARD ASSISTANT Work Phone: [facility] 09-12-2023 07:42-0400 Systolic blood pressure 136 mm[Hg] Imani Krueger COMMERCIAL AGENT-YARD ASSISTANT Work Phone: [facility] 08-21-2023 08:03-0500 Body height 149.9 cm Imani Krueger COMMERCIAL AGENT-YARD ASSISTANT Work Phone: [facility] 08-21-2023 08:03-0500 Body mass index (BMI) [Ratio] 38.78 kg/m2 Imani Krueger COMMERCIAL AGENT-YARD ASSISTANT Work Phone: [facility] 08-21-2023 08:03-0500 Body weight 87.09 kg Imani Krueger COMMERCIAL AGENT-YARD ASSISTANT Work Phone: [facility] 08-21-2023 08:03-0500 Diastolic blood pressure 106 mm[Hg] Imani Krueger COMMERCIAL AGENT-YARD ASSISTANT Work Phone: [facility] 08-21-2023 08:03-0500 Heart rate 94 /min Imani Krueger COMMERCIAL AGENT-YARD ASSISTANT Work Phone: [facility] 08-21-2023 08:03-0500 SaO2% (BldA) [Mass fraction] 100 % Imani Krueger COMMERCIAL AGENT-YARD ASSISTANT Work Phone: [facility] 08-21-2023 08:03-0500 Systolic blood pressure 151 mm[Hg] Imani Krueger COMMERCIAL AGENT-YARD ASSISTANT Work Phone: [facility] 06-28-2023 10:34-0500 Body height 149.9 cm Evans ONEILL-C Work Phone: [facility] 06-28-2023 10:34-0500 Body mass index (BMI) [Ratio] 38.78 kg/m2 Evans Verhoff PA-C Work Phone: [facility] [employer] [facility] 06-28-2023 10:34-0500 Body weight 87.09 kg Evans Verhoff PA-C Work Phone: [facility] [employer] [facility] 06-28-2023 10:34-0500 Diastolic blood pressure 107 mm[Hg] Evans Verhoff PA-C Work Phone: [facility] [employer] [facility] 06-28-2023 10:34-0500 Heart rate 93 /min Evans Verhoff PA-C Work Phone: [facility] [employer] [facility] 06-28-2023 10:34-0500 SaO2% (BldA) [Mass fraction] 97 % Evans Verhoff PA-C Work Phone: [facility] 06-28-2023 10:34-0500 Systolic blood pressure 139 mm[Hg] Evans Verhoff PA-C Work Phone: [facility] 05-29-2023 14:39-0500 Blood Pressure Location Lynn GARCIA [facility] 05-29-2023 14:39-0500 Diastolic blood pressure 83 mm[Hg] Lynn GARCIA [facility] 05-29-2023 14:39-0500 Heart rate 88 /min Lynn GARCIA [facility] 05-29-2023 14:39-0500 Respiratory rate 16 /min Lynn GARCIA [facility] 05-29-2023 14:39-0500 Systolic blood pressure 131 mm[Hg] Lynn GARCIA [facility] 11-24-2022 13:48-0400 Diastolic blood pressure 106 mm[Hg] Beth SALAM [facility] 11-24-2022 13:48-0400 Mean blood pressure 121 mm[Hg] Beth SALAM [facility] 11-24-2022 13:48-0400 Systolic blood pressure 152 mm[Hg] Beth SALAM [facility] 11-24-2022 13:46-0400 Blood Pressure Location Beth SALAM [facility] 11-24-2022 13:46-0400 Diastolic blood pressure 118 mm[Hg] Beth SALAM [facility] 11-24-2022 13:46-0400 Heart rate 80 /min Beth SALAM [facility] 11-24-2022 13:46-0400 Respiratory rate 16 /min Beth SALAM [facility] 11-24-2022 13:46-0400 Systolic blood pressure 161 mm[Hg] Beth SALAM [facility] 04-26-2022 12:03-0400 Blood Pressure Location Lynn GARCIA [facility] 04-26-2022 12:03-0400 Diastolic blood pressure 95 mm[Hg] Lynn GARCIA [facility] 04-26-2022 12:03-0400 Heart rate 102 /min Lynn GARCIA [facility] 04-26-2022 12:03-0400 Systolic blood pressure 141 mm[Hg] Lynn [facility]ARC[facility] 02-21-2022 12:39-0400 Body weight 88.81 kg Shiraz Roy DO Work Phone: [facility] 02-21-2022 12:39-0400 Diastolic blood pressure 85 mm[Hg] Shiraz Roy DO Work Phone: [facility] 02-21-2022 12:39-0400 Heart rate 76 /min Shiraz Roy DO Work Phone: [facility] 02-21-2022 12:39-0400 Systolic blood pressure 138 mm[Hg] Shiraz Roy DO Work Phone: [facility] 12-09-2021 09:00-0400 Body height 160.02 cm Alexis Dany II Other 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 Other 12-09-2021 09:00-0400 Body mass index (BMI) [Ratio] 34.47 kg/m2 Alexis Eagle II Other 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 Other 12-09-2021 09:00-0400 Body weight 88.27 kg Alexis Eagle II Other 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 Other 11-17-2021 15:30-0400 Body height 160.02 cm Alexis Dany II Other 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 Other 11-17-2021 15:30-0400 Body mass index (BMI) [Ratio] 32.41 kg/m2 Alexis Eagle II Other 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 Other 11-17-2021 15:30-0400 Body weight 83.01 kg Alexis Eagle II Other 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 Other Encounters Encounter Date Encounter Type Care Provider Facility Start: 02-11-2025 End: 02-11-2025 Clinisync Result Encounter Generic External Data Provider [facility] External Department Unsolicited Start: 02-11-2025 End: 02-11-2025 Clinisync Result Encounter Generic External Data Provider [facility] External Department Unsolicited Start: 01-15-2025 End: 01-15-2025 ambulatory Essie Ryan Work Phone: [facility] Work Phone: Comment on above: S/P total right hip arthroplasty (Primary Dx); Chronic right hip pain Start: 01-15-2025 End: 01-15-2025 Patient encounter procedure Paulette Warren MD -[facility] Work Phone: Start: 01-09-2025 End: 01-09-2025 Orders Only Essie Ryan SURFACE GRINDER TENDER Work Phone: [facility] Comment on above: Chronic right hip pa in (Primary Dx) Start: 01-01-2025 End: 01-01-2025 Bamboo flowsheet Essie Ryan SURFACE GRINDER TENDER Work Phone: [facility] Start: 01-01-2025 End: 01-01-2025 Bamboo flowsheet Essie Ryan SURFACE GRINDER TENDER Work Phone: [facility] Start: 01-01-2025 End: 01-01-2025 Office outpatient visit 25 minutes Essie Ryan SURFACE GRINDER TENDER Work Phone: [facility] Comment on above: Chronic right hip pa in (Primary Dx); NIRMALA (obstructive sleep apnea); Dizziness and giddiness; Primary hypertension ; Morbid (severe) obesity due to excess calories ([facility]); Bipolar 1 disorder ([facility]); Anxiety; Elevated glucose level; PAH (pulmonary artery hypertension) ([facility]); Bipolar disorder, unspecified ([facility]); Mixed hyperlipidemia ; Gastroesophageal reflux disease, unspecified whether esophagitis present Start: 01-01-2025 End: 01-01-2025 ambulatory ESSIE RYAN Not Available Start: 12-10-2024 ambulatory LESLIE Singleton ty:FLORENTIN Eunice Start: 11-28-2024 End: 11-28-2024 Clinisync Result Encounter Generic External Data Provider [facility] External Department Unsolicited Start: 11-28-2024 End: 11-28-2024 Clinisync Result Encounter Generic External Data Provider [facility] External Department Unsolicited Start: 11-28-2024 End: 11-28-2024 ambulatory Lynn Javy JOSE Facility:[id number] Start: 11-25-2024 End: 11-25-2024 Clinisync Result Encounter Generic External Data Provider [facility] External Department Unsolicited Start: 11-25-2024 End: 11-25-2024 Clinisync Result Encounter Generic External Data Provider [facility] External Department Unsolicited Start: 11-11-2024 End: 11-11-2024 ambulatory [facility] Start: 11-11-2024 End: 11-11-2024 Encounter for preprocedural cardiovascular examination [facility] Start: 11-01-2024 End: 11-01-2024 Clinisync Result Encounter Generic External Data Provider [facility] External Department Unsolicited Start: 11-01-2024 End: 11-01-2024 Clinisync Result Encounter Generic External Data Provider [facility] External Department Unsolicited Start: 10-31-2024 End: 10-31-2024 Telephone encounter Trinh Eduardo MD Work Phone: [facility] Comment on above: Sleep Lab (PAP) Start: 10-30-2024 End: 10-30-2024 ambulatory [facility] Start: 10-30-2024 End: 10-30-2024 ambulatory [facility] Start: 10-17-2024 ambulatory Lynn Javy JOSE Facili ty:[id number] Start: 10-09-2024 End: 10-09-2024 Clinisync Result Encounter Generic External Data Provider [facility] External Department Unsolicited Start: 10-09-2024 End: 10-09-2024 Clinisync Result Encounter Generic External Data Provider [facility] External Department Unsolicited Start: 10-07-2024 End: 10-07-2024 ambulatory Lynn GARCIA Facility:[facility] Start: 10-04-2024 End: 10-04-2024 Clinisync Result Encounter Essie Ryan SURFACE GRINDER TENDER Work Phone: [facility] External Department Unsolicited Start: 10-04-2024 End: 10-04-2024 Clinisync Result Encounter Essie Ryan SURFACE GRINDER TENDER Work Phone: [facility] External Department Unsolicited Start: 10-03-2024 End: 10-03-2024 ambulatory [facility] Start: 09-30-2024 End: 09-30-2024 Bamboo flowsheet Essie Ryan SURFACE GRINDER TENDER Work Phone: [facility] Start: 09-30-2024 End: 09-30-2024 Bamboo flowsheet Essie Ryan SURFACE GRINDER TENDER Work Phone: [facility] Start: 09-30-2024 End: 09-30-2024 Office outpatient visit 25 minutes Essie Ryan SURFACE GRINDER TENDER Work Phone: [facility] Comment on above: Dizziness and giddin ess (Primary Dx); NIRMALA (obstructive sleep apnea); Morbid (severe) obesity due to excess calories (CMS/HCC); Bipolar disorder, unspecified (CMS/HCC); Mixed hyperlipidemia (CMS/HCC); Anxiety; Chronic right hip pain; Gastroesophageal reflux disease, unspecified whether esophagitis present; Left hip pain Start: 09-30-2024 End: 09-30-2024 ambulatory ESSIE RYAN Not Available Start: 09-27-2024 End: 09-27-2024 ambulatory [facility] Start: 09-09-2024 End: 09-09-2024 Clinisync Result Encounter Generic External Data Provider [facility] External Department Unsolicited Start: 09-09-2024 End: 09-09-2024 Clinisync Result Encounter Generic External Data Provider [facility] External Department Unsolicited Start: 09-06-2024 End: 09-06-2024 Postop follow up visit related to original px Jeff Rossi MD [facility] Comment on above: Obstructive sleep ap shanice (Primary Dx) Start: 09-06-2024 End: 09-06-2024 ambulatory [facility] Start: 08-29-2024 End: 08-29-2024 Clinisync Result Encounter Essie Shelby SURFACE GRINDER TENDER Work Phone: [facility] External Department Unsolicited Start: 08-29-2024 End: 08-29-2024 Clinisync Result Encounter Essie Shelby SURFACE GRINDER TENDER Work Phone: [facility] External Department Unsolicited Start: 08-28-2024 End: 08-28-2024 Bamboo flowsheet Essie Shelby SURFACE GRINDER TENDER Work Phone: [facility] Start: 08-28-2024 End: 08-28-2024 Bamboo flowsheet Essie Shelby SURFACE GRINDER TENDER Work Phone: [facility] Start: 08-28-2024 End: 08-28-2024 Office outpatient visit 25 minutes Essie Ryan SURFACE GRINDER TENDER Work Phone: [facility] Comment on [...] End: 08-22-2024 Evaluation and management of inpatient [facility] Start: 07-30-2024 End: 07-30-2024 Patient encounter procedure Lois Mckeon MD Work Phone: Orthopaedics Comment on above: Pain of right hip (P rimary Dx) Start: 07-30-2024 End: 07-30-2024 Clinisync Result Encounter Generic External Data Provider [facility] External Department Unsolicited Start: 07-30-2024 End: 07-30-2024 Clinisync Result Encounter Generic External Data Provider [facility] External Department Unsolicited Start: 07-30-2024 End: 07-30-2024 ambulatory LOIS MCKEON Facility:[facility] Start: 07-30-2024 End: 07-30-2024 Subsequent hospital visit by physician Xr [facility] Work Phone: Radiology Comment on above: oa Start: 07-29-2024 End: 07-29-2024 Telephone encounter Jeff Rossi MD Work Phone: [facility] Start: 07-26-2024 End: 07-26-2024 Telephone encounter Jeff Rossi MD Work Phone: [facility] Start: 07-23-2024 End: 07-23-2024 ambulatory JEFF ROSSI [facility] Start: 07-23-2024 End: 07-23-2024 Patient encounter procedure [facility] 4 [facility] Start: 07-01-2024 End: 07-01-2024 ambulatory LOIS MCKEON Facility:[facility] Start: 06-08-2024 End: 06-11-2024 Clinisync Result Encounter [...] Unsolicited Start: 06-05-2024 End: 06-05-2024 [facility]mission [facility] Work Phone: Pre Anesthesia Start: 06-05-2024 End: 06-05-2024 ambulatory [facility] Facility:[facility] Start: 06-05-2024 End: 06-05-2024 Anesthesia consultation Pac 3 Work Phone: Pre Anesthesia Comment on above: Pre-op evaluation (P rimary Dx); NIRMALA (obstructive sleep apnea); Gastroesophageal reflux disease, unspecified whether esophagitis present; Pulmonary HTN (HCC); Other hyperlipidemia; BMI 37.0-37.9, adult Start: 06-05-2024 Encounter for other preprocedural examination LOIS MCKEON [facility] Start: 06-05-2024 End: 06-05-2024 Preprocedural examination done Pac 3 Work Phone: [facility] Work Phone: Start: 05-29-2024 End: 05-29-2024 [...] 05-29-2024 End: 05-29-2024 Bamboo flowsheet Essie Ryan SURFACE GRINDER TENDER Work Phone: [facility] Start: 05-29-2024 End: 05-29-2024 Bamboo flowsheet Essie Ryan SURFACE GRINDER TENDER Work Phone: [facility] Start: 05-24-2024 End: 05-24-2024 Admission to same day surgery center Lois Mckeon MD Work Phone: Orthopaedics Comment on above: Schedule Surgery Start: 05-24-2024 End: 05-24-2024 ambulatory Lois Mckeon MD Work Phone: Orthopaedics Start: 05-17-2024 End: 05-17-2024 Office outpatient visit 15 minutes Jeff Rossi MD Work Phone[facility] Comment on above: Obstructive sleep ap shanice (Primary Dx) Start: 05-17-2024 End: 05-17-2024 ambulatory [facility] Start: 05-09-2024 End: 06-01-2024 Telephone encounter Lois Mckeon MD Work Phone: Orthopaedics Comment on above: Question (See note) Start: 05-09-2024 End: 05-09-2024 Evaluation and management of inpatient [facility] Start: 05-09-2024 End: 05-09-2024 Evaluation and management of inpatient [facility] Start: 05-06-2024 End: 05-06-2024 Evaluation and management of inpatient ESSIE Dolan [facility] Start: 05-02-2024 End: 05-06-2024 Admission to [facility] Phone Call Provider 2 [facility] On [facility] Start: 04-19-2024 End: 04-19-2024 Telephone encounter Jeff Rossi MD Work Phone: [facility] Start: 04-19-2024 End: 04-19-2024 Office outpatient new 30 minutes Jeff Rossi MD Work Phone: [facility] Comment on above: NIRMALA (obstructive sle ep apnea) (Primary Dx) Start: 04-19-2024 End: 04-19-2024 ambulatory [facility] Start: 04-16-2024 End: 04-16-2024 ambulatory LOIS MCKEON Facility:[facility] Start: 04-16-2024 End: 04-16-2024 Patient encounter procedure Lois Mckeon MD Work Phone: Orthopaedics Comment on above: Primary osteoarthrit is of right hip (Primary Dx); Status post right hip replacement Start: 04-10-2024 End: 04-10-2024 Bamboo flowsheet Essie Rolonjacob SURFACE GRINDER TENDER Work Phone: [facility] Start: 04-10-2024 End: 04-10-2024 Bamboo flowsheet Essie Ryan SURFACE GRINDER TENDER Work Phone: [facility] Start: 04-10-2024 End: 04-10-2024 Office outpatient visit 25 minutes Essie Rolonjacob SURFACE GRINDER TENDER Work Phone: [facility] Comment on [...] procedure Lois Mckeon MD Work Phone: [facility] Comment on above: Pain of right hip (P rimary Dx); Primary osteoarthritis of right hip Start: 03-19-2024 End: 03-19-2024 ambulatory LOIS MCKEON Facility:[facility] Start: 03-19-2024 End: 03-19-2024 Subsequent hospital visit by physician Xr [facility] 1 Xray [facility] Comment on above: Pain in right hip [M 25.551] Start: 03-18-2024 End: 03-22-2024 Telephone encounter Lois Mckeon MD Work Phone: [facility] Start: 03-06-2024 End: 03-06-2024 Clinisync Result Encounter Generic External Data Provider [facility] External Department Unsolicited Start: 03-06-2024 End: 03-06-2024 Clinisync Result Encounter Generic External Data Provider [facility] External Department Unsolicited Start: 03-06-2024 End: 03-06-2024 ambulatory [facility] Start: 03-06-2024 End: 03-06-2024 ambulatory [facility] Start: 02-29-2024 End: 02-29-2024 Bamboo flowsheet Essie Ryan SURFACE GRINDER TENDER Work Phone: [facility] Start: 02-29-2024 End: 02-29-2024 Bamboo flowsheet Essie Shelby SURFACE GRINDER TENDER Work Phone: [facility] Start: 02-29-2024 End: 02-29-2024 Office outpatient visit 25 minutes Essie Ryan SURFACE GRINDER TENDER Work Phone: [facility] Comment on above: Bipolar disorder, cu rrent episode mixed, moderate (CMS/HCC) (Primary Dx); Chronic rhinitis; Gastroesophageal reflux disease, unspecified whether esophagitis present; BMI 38.0-38.9,adult; Neuritis of left median nerve; Neuritis of right median nerve; Bipolar disorder, unspecified (CMS/HCC) Start: 02-29-2024 End: 02-29-2024 ambulatory SESIE AICHHOLZ Not Available Start: 01-30-2024 End: 01-30-2024 ambulatory ESSIE AICHHOLZ Not Available Start: 11-28-2023 End: 11-28-2023 Patient encounter procedure LESLIE JUNG [facility] Start: 11-12-2023 End: 11-13-2023 Refill Imani Krueger COMMERCIAL AGENT-YARD ASSISTANT Work Phone: [facility] Comment on above: Chronic right hip pa in Start: 09-20-2023 Telephone encounter Nora FROST [facility] Start: 09-12-2023 End: 09-12-2023 Office outpatient visit 15 minutes Imani Krueger COMMERCIAL AGENT-YARD ASSISTANT Work Phone: [facility] Comment on above: Chronic right hip pa in (Primary Dx) Start: 08-21-2023 End: 08-21-2023 Office outpatient visit 25 minutes Evans N Verhoff PA-C Work Phone: [facility] Comment on above: Chronic right hip pa in (Primary Dx); Lumbar neuritis Start: 07-11-2023 End: 07-11-2023 ambulatory Juliana Block Other 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 Other Start: 07-11-2023 Office outpatient vi sit 25 minutes Juliana Block [facility] Start: 06-28-2023 End: 06-28-2023 Office outpatient visit 15 minutes Evans Segun Verhoff PA-C Work Phone: [facility] Comment on above: Lumbar radiculopathy (Primary Dx) Start: 05-29-2023 End: 05-29-2023 Patient encounter procedure Lynn GARCIA [facility] [place] Start: 02-02-2023 End: 02-02-2023 Lab Drop off Ignacia KHAN [facility] Start: 02-01-2023 End: 02-01-2023 Patient encounter procedure Beth SALAM [facility] Start: 12-06-2022 End: 12-06-2022 Patient encounter procedure Beth SALAM [facility] Start: 11-24-2022 End: 11-24-2022 Patient encounter procedure Beth SALAM [facility] Start: 11-22-2022 End: 11-23-2022 ambulatory CAN MONROE Facility:[facility] Start: 11-08-2022 ambulatory BYRON GARCIA . Facility:[facility] Start: 10-26-2022 End: 10-27-2022 ambulatory YARD ASSISTANT ESSIE RYAN Facility:[facility] Start: 10-18-2022 End: 10-18-2022 [...] encounter procedure Lynn GARCIA [facility] Start: 04-22-2022 End: 04-23-2022 ambulatory NIURKA RYAN Facility:[facility] Start: 03-29-2022 End: 03-30-[address] MARKO MORALES . Facility:[facility] Start: 03-22-2022 End: 03-23-2022 ambulatory NIURKA RYAN Facility:[facility] Start: 03-22-2022 End: 03-23-[address] MARKO MORALES . Facility:[facility] Start: 03-08-2022 End: 03-09-[address] NEDA CACERES Facility:[facility] Start: 03-08-2022 End: 03-08-2022 Patient encounter procedure Lynn Javy GARCIA [facility] Start: 03-07-2022 End: 03-08-2022 ambulatory NIURKA RYAN [...] End: 01-05-2022 ambulatory Alexis Saenz II Other 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 Other Start: 01-05-2022 Telephone encounter Alexis [facility] Start: 12-31-2021 End: 12-31-2021 Patient encounter procedure Jorge Luis Page DO Work Phone: Orthopaedics Comment on above: Trochanteric bursiti s of right hip (Primary Dx) Start: 12-09-2021 End: 12-09-2021 ambulatory Alexis Saenz II Other 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 Other Start: 12-09-2021 Office outpatient vi sit 25 minutes Alexis Dany II [facility] Start: 11-17-2021 End: 11-17-2021 ambulatory Alexis Saenz II Other [place] [employer] Other Start: 11-17-2021 Office outpatient ne w 45 minutes Alexis Saenz II [facility] Start: 06-02-2017 End: 06-03-2017 Ambulatory DEFAULT PHYSICIAN Facility:[facility] Start: 05-15-2017 End: 05-16-2017 Ambulatory DEFAULT PHYSICIAN Facility:[facility] Start: 05-01-2017 End: 05-02-2017 Ambulatory DEFAULT PHYSICIAN Facility:[facility] Procedures Date Procedure Procedure Detail Performing Clinician Start: 02-11-2025 XR ABDOMEN 1V Generic E xternal Data Provider Start: 01-01-2025 Hemoglobin glycosylated a1c Essie Ryan SURFACE GRINDER TENDER Work Phone: Start: 11-28-2024 XR ABDOMEN 1V Generic E xternal Data Provider Start: 11-25-2024 ALL CBC WITH AUTO DIFF Generic External Data Provider Start: 11-01-2024 CA ECHO DOPPLER COMPLETE Generic External Data Provider Start: 10-09-2024 XR HIP LT MIN 2V Essie christiansen SURFACE GRINDER TENDER Work Phone: Start: 10-09-2024 ALL CBC WITH AUTO DIFF Generic External Data Provider Start: 10-04-2024 MM TOMOSYNTHESIS SCR EENING BI Essie Ryan SURFACE GRINDER TENDER Work Phone: Start: 10-04-2024 Mammography Essie cristina SURFACE GRINDER TENDER Work Phone: Start: 09-09-2024 XR ABDOMEN 1V Generic E xternal Data Provider Start: 09-09-2024 US RENAL BI Generic Ex ternal Data Provider Start: 08-29-2024 ALL CBC WITH AUTO DIFF Essie Ryan SURFACE GRINDER TENDER Work Phone: Start: 07-30-2024 Radex hip unilateral [...] ast 12 lds i&r only Negrita Tejeda COMMERCIAL AGENT.YARD ASSISTANT Work Phone: Start: 03-19-2024 Radex hip unilateral with pelvis 2-3 views Mayito Gifford PA-C Work Phone: Start: 03-06-2024 ALL LIPID PROFILE (FASTING) Generic External Data Provider Start: 03-06-2024 [facility] LIVER PANEL Generi c External Data Provider Start: 08-17-2023 Mammography Essie Nawaf cristina SURFACE GRINDER TENDER Work Phone: Start: 12-24-2022 Lobectomy of thyroid [...] (1 of 3 - Risk 3-dose series) [facility] Start: 06-05-2027 Diabetes Screening Diabetes Screening [facility] Start: 10-04-2025 Screening for malignant neoplasm of breast Mammogram [facility] Start: 09-06-2025 Adult BMI Screening Adult BMI Screening [facility] Start: 08-22-2025 Tobacco Screening Tobacco Screening [facility] Start: 07-23-2025 Adult BMI Screening Adult BMI Screening [facility] Start: 07-23-2025 Tobacco Screening Tobacco Screening [facility] Start: 05-17-2025 Adult BMI Screening Adult BMI Screening [facility] Start: 05-17-2025 Tobacco Screening Tobacco Screening [facility] Start: 05-09-2025 Adult BMI Screening Adult BMI Screening [facility] Start: 05-09-2025 Tobacco Screening Tobacco Screening [facility] Start: 04-19-2025 Adult BMI Screening Adult BMI Screening [facility] Start: 04-19-2025 Tobacco Screening Tobacco Screening [facility] Start: 04-03-2025 End: 04-03-2025 Patient encounter procedure 04/03/2025 1:20 PM EDT [facility] [address] [place] [address] Essie Ryan, NETO [address] [place] [address] [facility] Start: 03-12-2025 ambulatory Ambulatory Facility:[facility] Start: 02-24-2025 Influenza vaccination Influenza Vaccine [facility] Start: 01-29-2025 End: 01-29-2025 Clinical Support 01/29/2025 8:00 PM EDT Clinical Support [facility] [address] [place] [phone] Trinh Eduardo MD [address] [place] [address] [address] [place] [address] [facility] Start: 01-01-2025 End: 01-01-2025 [facility] Comment on above: NIRMALA (obstructive sleep apnea) (Primary D x); Dizziness and giddiness; Primary hypertension ; Morbid (severe) obesity due to excess calories (CMS-HCC); Bipolar 1 disorder (HCC); Anxiety; Elevated glucose level; PAH (pulmonary artery hypertension) (HCC) Start: 10-01-2024 End: 10-01-2024 Patient encounter procedure 10/01/2024 1:20 PM EDT Office Visit Orthopaedics [address] [place] [address] Lois Mckeon MD [address] [place] [phone] 2mo follow up - DOS 07/01/24 Orthopaedics Comment on above: 2mo follow up - DOS 07/01/24 Start: 09-30-2024 End: 09-30-2025 XR Hip - left 3 Views XR hip left 2 or 3 views Imaging Routine Left hip pain Expected: 09/30/2024, Expires: 09/30/2025 [facility] Work Phone: Comment on above: Expected: 09/30/2024, Expires: Start: 09-30-2024 End: 09-30-2024 Patient encounter procedure [facility] Comment on above: Dizziness and giddiness (Primary Dx); NIRMALA (obstructive sleep apnea); Morbid (severe) obesity due to excess calories (CMS/HCC) Start: 09-11-2024 Tobacco Screening Tobacco Screening [facility] Start: 08-28-2024 End: 08-28-2025 CBC W Auto Differential panel - Blood CBC and differential Lab Routine Dizziness and giddiness Expected: 08/28/2024 (Approximate), Expires: 08/28/2025 [facility] Healthcare Comment on above: Expected: 08/28/2024 (Approximate), Expi res: 08/28/2025 Start: 08-28-2024 End: 08-28-2025 Comprehensive metabolic 2000 panel - Serum or Plasma Comprehensive metabolic panel Lab Routine Dizziness and giddiness Expected: 08/28/2024 (Approximate), Expires: 08/28/2025 [facility] Healthcare Comment on above: Expected: 08/28/2024 (Approximate), Expi res: 08/28/2025 Start: 08-28-2024 End: 08-28-2025 Ferritin [Mass/volume] in Serum or Plasma Ferritin Lab Routine Dizziness and giddiness Expected: 08/28/2024 (Approximate), Expires: 08/28/2025 [facility] Comment on above: Expected: 08/28/2024 (Approximate), Expi res: 08/28/2025 Start: 08-28-2024 End: 08-28-2025 Iron + transferrin + TIBC Iron + transferrin + TIBC Lab Routine Dizziness and giddiness Expected: 08/28/2024 (Approximate), Expires: 08/28/2025 [facility] Comment on above: Expected: 08/28/2024 (Approximate), Expi res: 08/28/2025 Start: 08-28-2024 End: 08-28-2025 Lipid 1996 panel - Serum or Plasma Lipid panel Lab Routine Mixed hyperlipidemia (CMS/HCC) Expected: 08/28/2024 (Approximate), Expires: 08/28/2025 [facility] Comment on above: Expected: 08/28/2024 (Approximate), Expi res: 08/28/2025 Start: 08-28-2024 End: 10-28-2025 MG Breast - bilateral Screening Bilateral screening mammogram Imaging Routine Encounter for screening mammogram for malignant neoplasm of breast Expected: 08/28/2024 (Approximate), Expires: 10/28/2025 [facility] Work Phone: Comment on above: Expected: 08/28/2024 (Approximate), Expi res: 10/28/2025 Start: 08-28-2024 End: 08-28-2024 Patient encounter procedure [facility] Comment on above: NIRMALA (obstructive sleep [...] 08-21-2024 Adult BMI Screening Adult BMI Screening [facility] Start: 08-17-2024 Screening for malignant neoplasm of breast Mammogram [facility] Start: 08-07-2024 End: 08-07-2024 Patient encounter procedure 08/07/2024 8:15 AM EST Office Visit [facility] [address] [place] [address], [address] [place] [address] Jeff Rossi MD [address] [place] [address] [address] [place] [address] [facility] Start: 08-01-2024 End: 08-01-2024 Admission to same day surgery center 08/01/2024 11:30 AM EST - 08/01/2024 3:30 PM EST Surgery [facility] [address] [place] [address] Jeff Rossi MD [address] [place] [address] [address] [place] [address] INSERTION STIMULATOR NERVE HYPOGLOSSAL - Inspire [59028 (CPT )] [facility] Comment on above: INSERTION STIMULATOR NERVE HYPOGLOSSAL - Inspire [96301 (CPT )] Start: 08-01-2024 End: 08-01-2024 INSERTION STIMULATOR NERVE HYPOGLOSSAL INSERTION STIMULATOR NERVE HYPOGLOSSAL Obstructive sleep apnea NIRMALA (obstructive sleep apnea) 08/01/2024 11:30 AM EST [facility] Start: 08-01-2024 Subsequent hospital visit by physician 08/01/2024 11:30 AM EST Hospital Encounter [facility] [address] [place] [address] Jeff Rossi MD [address] [place] [address] [address] [place] [address] [facility] Start: 08-01-2024 End: 08-01-2024 Admission to same day surgery center 08/01/2024 7:30 AM EST - 08/01/2024 11:30 AM EST Surgery [facility] [address] [place] [address] Jeff Rossi MD [address] [place] [address] [address] [place] [address] INSERTION STIMULATOR NERVE HYPOGLOSSAL - Inspire [03860 (CPT )] [facility] Comment on above: INSERTION STIMULATOR NERVE HYPOGLOSSAL - Inspire [94300 (CPT )] Start: 08-01-2024 End: 08-01-2024 INSERTION STIMULATOR NERVE HYPOGLOSSAL INSERTION STIMULATOR NERVE HYPOGLOSSAL Obstructive sleep apnea NIRMALA (obstructive sleep apnea) 08/01/2024 7:30 AM EST [facility] Start: 08-01-2024 Subsequent hospital visit by physician 08/01/2024 7:30 AM EST Hospital Encounter [place] [address] [place] [address] Jeff Rossi MD [address] [place] [address] [address] [place] [address] [facility] Start: 07-30-2024 End: 07-30-2024 Patient encounter procedure Radiology Comment on above: post op xray right hip Surgical post op Start: 07-23-2024 End: 07-23-2024 Patient encounter procedure 07/23/2024 2:15 PM EST Procedure visit [facility] On [address] [address] [facility] Start: 07-01-2024 End: 07-01-2024 Admission to same day surgery center 07/01/2024 4:32 PM EST - 07/01/2024 6:47 PM EST Surgery [facility] Operating Room [address] [address] Lois Mckeon MD [address] [place] [address] ARTHROPLASTY REPLACE JOINT TOTAL HIP [facility] Comment on above: ARTHROPLASTY REPLACE JOINT TOTAL HIP Start: 07-01-2024 End: 07-01-2024 Arthrp acetblr/prox fem prostc agrft/algrft ARTHROPLASTY REPLACE JOINT TOTAL HIP Primary osteoarthritis of right hip 07/01/2024 4:32 PM EST [facility] Start: 07-01-2024 Subsequent hospital visit by physician 07/01/2024 4:32 PM EST Hospital Encounter [facility] [address] [address] Lois Mckeon MD [address] [place], [place] [id number] Primary osteoarthritis of right hip [M16.11] [facility] Comment on above: Primary osteoarthritis of right hip [M16 .11] Start: 06-28-2024 Adult BMI Screening Adult BMI Screening [facility] Start: 06-28-2024 Tobacco Screening Tobacco Screening [facility] Start: 06-05-2024 End: 09-04-2024 Basic metabolic 2000 panel - Serum or Plasma [facility] Comment on above: Expected: 06/05/2024, Expires: Start: 06-05-2024 End: 09-04-2024 CBC W Auto Differential panel - Blood [facility] Work Phone: Comment on above: Expected: 06/05/2024, Expires: 5 Start: 06-05-2024 End: 09-04-2024 Ferritin [Mass/volume] in Serum or Plasma [facility] Comment on above: Expected: 06/05/2024, Expires: Start: 06-05-2024 End: 09-04-2024 Iron and Iron binding capacity panel - Serum or Plasma [facility] Comment on above: Expected: 06/05/2024, Expires: Start: 06-05-2024 End: 06-05-2024 Anesthesia consultation 06/05/2024 10:30 AM EST PAT Pre Anesthesia [address] [place] [address] ARTHROPLASTY REPLACE JOINT TOTAL HIP [3131] - Hip - Right Pre Anesthesia Comment on above: ARTHROPLASTY REPLACE JOINT TOTAL HIP [31 31] - Hip - Right Start: 05-29-2024 End: 05-29-2024 Patient encounter procedure 05/29/2024 2:20 PM EST Office Visit [facility] [address] [place] [address] Essie Ryan, SURFACE GRINDER TENDER [address] [place] [phone] NIRMALA (obstructive sleep apnea) (Primary Dx); PAH (pulmonary artery hypertension) (CMS/HCC); Chronic right hip pain; Morbid (severe) obesity due to excess calories (CMS/HCC); Bipolar 1 disorder (CMS/HCC); Anxiety [facility] Comment on above: NIRMALA (obstructive sleep apnea) (Primary D x); PAH (pulmonary artery hypertension) (CMS/HCC); Chronic right hip pain; Morbid (severe) obesity due to excess calories (CMS/HCC); Bipolar 1 disorder (CMS/HCC); Anxiety Start: 05-21-2024 End: 05-21-2024 Patient encounter procedure 05/21/2024 9:00 AM EST Office Visit [facility] [address] [place] [address] Essie Ryan, NETO [address] [place] [phone] [facility] Start: 05-17-2024 End: 05-17-2024 Patient encounter procedure 05/17/2024 8:15 AM EST Office Visit [facility] [address] [place] [phone] Jeff Rossi MD [address] [place] [address] [facility] Start: 05-09-2024 End: 05-09-2024 Admission to same day surgery center 05/09/2024 10:30 AM EST - 05/09/2024 11:00 AM EST Surgery [place] [address] [place] [address] Jeff Rossi MD [address] [place] [address] [address] [place] [id number] ENDOSCOPIC DIAGNOSTIC DRUG INDUCED SLEEP [88576 (CPT )] [facility] Comment on above: ENDOSCOPIC DIAGNOSTIC DRUG INDUCED SLEEP [28215 (CPT )] Start: 05-09-2024 Subsequent hospital visit by physician 05/09/2024 10:30 AM EST Hospital Encounter [place] [address] [place] [address] Jeff Rossi MD [address] [place] [address] [address] [place] [address] [facility] Start: 05-09-2024 End: 05-09-2024 ENDOSCOPIC DIAGNOSTIC DRUG INDUCED SLEEP [facility] Start: 05-02-2024 End: 05-02-2024 Admission to establishment 05/02/2024 3:45 PM EST Support Visit [facility] On [address] [phone] [facility] Start: 04-16-2024 End: 04-16-2024 Patient encounter procedure 04/16/2024 1:10 PM EDT Office Visit Orthopaedics [address] [place] [address] Lois Mckeon MD [address] [place] [address] MRI follow up Orthopaedics Comment on above: MRI follow up Start: 04-10-2024 End: 04-10-2024 Patient encounter procedure [facility] Comment on above: Arrived Start: 02-29-2024 End: 02-29-2024 Patient encounter procedure 02/29/2024 8:40 AM EDT [facility] [address] [place] [address] Essie Ryan NP [address] [place] [address] Chronic rhinitis; Gastroesophageal reflux disease, unspecified whether esophagitis present [facility] Comment on above: Chronic rhinitis; Gastroesophageal reflux disease, unspecified whether esophagitis present Start: 02-25-2024 Covid-19 Vaccine ( season) Covid-19 Vaccine () [facility] Start: 02-25-2024 Influenza vaccination [facility] Start: 12-15-2023 DIABETES SCREEN DIABETES SCREEN [facility] Start: 12-15-2023 Diabetes Screening Diabetes Screening [facility] Start: 09-12-2023 End: 09-12-2023 Patient encounter procedure 09/12/2023 7:45 AM EDT Office Visit [facility] [address] [place] [phone] Imani Krueger, COMMERCIAL AGENT-YARD ASSISTANT [address] [place] [address] [facility] Start: 09-01-2023 End: 09-01-2023 Admission to same day surgery center 09/01/2023 9:18 AM EST - 09/01/2023 9:22 AM EST Surgery [facility] [address] [place] [phone] Pj Gannon MD [address] [place] [address] INJECTION BURSA LARGE JOINT Right Hip [ (CPT )] [facility] Comment on above: INJECTION BURSA LARGE JOINT Right Hip [2 609 (CPT )] Start: 09-01-2023 End: 09-01-2023 Arthrocentesis aspir&/inj major jt/bursa w/o us INJECTION BURSA LARGE JOINT Chronic right hip pain 09/01/2023 9:18 AM EST [facility] Start: 09-01-2023 Subsequent hospital visit by physician 09/01/2023 9:18 AM EST Hospital Encounter [facility] [address] [place] [phone] Pj Gannon MD [address] [place] [address] [facility] Start: 08-30-2023 End: 08-30-2023 Patient encounter procedure 08/30/2023 8:15 AM EST Office Visit [facility] [address] [place] [phone] Evans Anderson, PAAndrewC [address] [place] [address] [facility] Start: 08-04-2023 Screening for malignant neoplasm of breast Mammogram Screening [facility] Start: 02-24-2023 Influenza vaccination Influenza Vaccine [facility] Start: 02-14-2023 Adult depression screening assessment DEPRESSION SCREENING [facility] Start: 02-24-2022 Influenza vaccination INFLUENZA (#1) [facility] Start: 12-15-2021 Colonoscopy COLONOSCOPY [facility] Start: 12-15-2021 COLORECTAL CANCER SCREENING COLORECTAL CANCER SCREENING [facility] Start: 12-15-2021 Screening for malignant neoplasm of colon [facility] Start: 2021 COLOGUARD (FIT-DNA) COLOGUARD (FIT-DNA) [facility] Start: [address] COLONOGRAPHY [facility] Start: 2021 FECAL OCCULT BLOOD FECAL OCCULT BLOOD [facility] Start: 2021 Lipid panel Lipid Screening [facility] Start: 2021 LIPID SCREEN LIPID SCREEN [facility] Start: 2021 Screening for malignant neoplasm of colon [facility] Start: 2021 SIGMOIDOSCOPY SIGMOIDOSCOPY [facility] Start: 2016 Mammography MAMMOGRAM [facility] Start: 2006 HPV TESTING HPV TESTING [facility] Start: 2006 Screening for malignant neoplasm of cervix HPV/C[facility]est [facility] Start: 1997 PAP TESTING PAP TESTING [facility] Start: 1997 Screening for malignant neoplasm of cervix [facility] Start: 1995 DTaP,Tdap and Td Vaccines (1 - Tdap) DTaP,Tdap and Td Vaccines (1 - Tdap) [facility] Start: 1995 HEPATITIS B (1 of 3 - Risk 3-dose series) HEPATITIS B (1 of 3 - Risk 3-dose series) [facility] Start: 1995 Hepatitis B Vaccine (1 of 3 - 19+ 3-dose series) Hepatitis B Vaccine (1 of 3 - 19+ 3-dose series) [facility] Start: 1995 Urine microalbumin profile [facility] Start: 1994 Adult BMI Follow Up Plan Adult BMI Follow Up Plan [facility] Start: 1994 Anxiety Screening Anxiety Screening [facility] Start: 1994 Depression Screening Depression Screening [facility] Start: 1994 HIV SCREENING HIV SCREENING [facility] Start: 1994 HIV screening HIV Screening [facility] Start: 1994 MMR (1 of 2 - Risk 2-dose series) MMR (1 of 2 - Risk 2-dose series) [facility] Start: 1988 Adult depression screening assessment DEPRESSION SCREENING [facility] Start: 1986 MENINGOCOCCAL B: Consider based on risk (1 of 4 - Increased Risk Bexsero 2-dose series) MENINGOCOCCAL B: Consider based on risk (1 of 4 - Increased Risk Bexsero 2-dose series) [facility] Start: 1977 HEPATITIS A (1 of 2 - Risk 2-dose series) HEPATITIS A (1 of 2 - Risk 2-dose series) [facility] Start: 1976 COVID-19 VACCINE (#1) COVID-19 VACCINE (#1) [facility] ECG COMPLETE ECG COMPLETE ECG Routine Pre-op evaluation 06/05/2024 10:36 AM EST [facility] End: 04-18-2025 MR Hip - right WO contrast MRI HIP WO IVCON RIGHT Radiology Routine Pain of right hip 1 Occurrences starting 03/19/2024 until 04/18/2025 [facility] Work Phone: Comment on above: 1 Occurrences starting 03/19/2024 until 04/18/2025 End: 08-20-2024 XR Pelvis and Hip - right 2 Views X-ray hip right 2-3 views with or without pelvis Imaging Routine Chronic right hip pain 1 Occurrences starting 08/21/2023 until 08/20/2024 [employer] Work Phone: Comment on above: 1 Occurrences starting 08/21/2023 until 08/20/2024 [facility] Immunizations Immunization Date Immunization Notes Care Provider [facility] 05-03-2012 influenza virus vaccine, whole virus Essie Ryan SURFACE GRINDER TENDER Work Phone: [facility] 05-03-2012 influenza, injectabl e, quadrivalent, contains preservative Essie Shelby SURFACE GRINDER TENDER Work Phone: [facility] 05-03-2012 influenza, whole Lynn CHRISTOPHER ERS [facility] 05-03-2012 influenza virus vaccine, unspecified formulation Evans Anderson PA-C Work Phone: [employer] [facility] Payers Date Payer Category Payer Managed Care HMO (unspecified) [employer] [id number] 2024 Unknown [id number] 2022 Medicaid O [facility] MEDICAID [id number] 2022 Private Health Insurance [id number] 2020 Medicaid [facility] MEDICAID [facility] MEDICA[facility] [id number] 2020-Present [phone] [address] [place] [address] Medicaid [id number] 2020 Medicaid [id number] [id number]. [id number] 1976 Unknown [id number] 2.16.840.1.807989.3.579. 2.593 1976 Unknown [id number] 2.16.840.1.372698.3.579. 2.593 1976 Unknown [id number] 2.16.840.1.482555.3.579. 2.593 1976 Unknown [id number] 2.16.840.1.634656.3.579. 2.593 1976 Unknown [id number] 2.16.840.1.870780.3.579. 2.593 1976 Unknown [id number] 2.16.840.1.450068.3.579. 2.593 1976 Unknown [id number] 2.16.840.1.470304.3.579. 2.593 1976 Unknown [id number] 2.16.840.1.052938.3.579. 2.593 1976 Unknown [id number] 2.16.840.1.792488.3.579. 2.593 1976 Unknown [id number] 2.16.840.1.619284.3.579. 2.593 1976 Unknown [id number] 2.16.840.1.487845.3.579. 2.593 1976 Unknown [id number] 2.16.840.1.536280.3.579. 2.593 1976 Unknown [id number] 2.16.840.1.845763.3.579. 2.593 1976 Unknown [id number] 2.16.840.1.146512.3.579. 2.593 1976 Unknown [id number] 2.16.840.1.581714.3.579. 2.593 1976 Unknown [id number] 2.16.840.1.928967.3.579. 2.593 1976 Unknown [id number] 2.16.840.1.359618.3.579. 2.593 1976 Unknown [id number] 2.16.840.1.811001.3.579. 2.593 1976 Unknown [id number] 2.16.840.1.396403.3.579. 2.593 1976 Unknown [id number] 2.16.840.1.562297.3.579. 2.593 1976 Unknown [id number] 2.16.840.1.972414.3.579. 2.593 1976 Unknown [id number] 2.16.840.1.883565.3.579. 2.593 1976 Unknown [id number] 2.16.840.1.541978.3.579. 2.593 1976 Unknown [id number] 2.16.840.1.485358.3.579. 2.1286 1976 Unknown [id number] 2.16.840.1.529313.3.579. 2.1286 1976 Unknown [id number] 2.16.840.1.443422.3.579. 2.1286 1976 Unknown [id number] 2.16.840.1.310121.3.579. 2.1286 1976 Unknown [id number] 2.16.840.1.314338.3.579. 2.1286 1976 Unknown [id number] 2.16.840.1.465865.3.579. 2.1286 1976 Unknown [id number] 2.16.840.1.354079.3.579. 2.1286 1976 Unknown [id number] 2.16.840.1.748122.3.579. 2.1286 1976 Unknown [id number] 2.16.840.1.919010.3.579. 2.1286 1976 Unknown [id number] 2.16.840.1.626652.3.579. 2.1286 1976 Unknown [id number] 2.16.840.1.889606.3.579. 2.1286 1976 Unknown [id number] 2.16.840.1.892138.3.579. 2.1259 1976 Unknown [id number] 2.16.840.1.054118.3.579. 2.1259 1976 Unknown [id number] 2.16.840.1.493062.3.579. 2.9 1976 Unknown [id number] 2.16.840.1.256329.3.579. 2.9 1976 Unknown [id number] 2.16.840.1.933002.3.579. 2.9 1976 Unknown [id number] 2.16.840.1.219096.3.579. 2.9 1976 Unknown [id number] 2.16.840.1.239008.3.579. 2.9 1976 Unknown [id number] 2.16.840.1.385843.3.579. 2.727 1976 Unknown [id number] 2.16.840.1.370183.3.579. 2.727 1976 Unknown [id number] 2.16.840.1.549404.3.579. 2.727 1976 Unknown [id number] 2.16.840.1.696285.3.579. 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 Start: 07-27-2016 End: 10-25-2023 Tobacco smoking status NHIS Never smoked tobacco [facility] Start: 07-27-2016 End: 10-25-2023 Tobacco use and exposure Smokeless tobacco non-user [facility] Start: 12-15-2020 End: 09-06-2024 Alcohol intake Current non-drinker of alcohol (finding) [facility] Start: 1975 Sex Assigned At Not on file [facility] Start: 01-07-2022 End: 02-21-2022 Exposure to SARS-CoV-2 (event) Not sure [facility] Tobacco Past [facility] Comment on above: stopped 12 years ago stopped 12 years ago Tobacco smoking status No Smoking Status Entered [facility] [place] Tobacco smoking status Never [facility] Start: 02-21-2022 End: 08-28-2024 History of Social function [facility] Start: 02-29-2024 End: 01-01-2025 Alcoholic beverage [...] [facility] Start: 01-29-2015 [facility] (finding) [facility] How hard is it for [...] smoking status NHIS Unknown if ever smoked [facility] Work Phone: Start: 1975 Sex Assigned At Female F [facility] NEGATED: Highlighted rowStart: NINF History of tobacco use Passive smoker [facility] Medical Equipment Procedure Code Equipment Code Equipment Origin al Text Equipment Identifier Dates Insert Acetabula r 32mm 0d D Hip X3 Trident Sterile Latex Free - [id number] Start: 07-01-2024 Shell Trident Ii 48mm D Tritanium Acetabular 3 Screw Hole Cluster Sterile - [id number] Start: 07-01-2024 Stem Femoral 8x9 9mm Size 2 High Insignia Collared - [id number] Start: 07-01-2024 Head V40 32mm -4 mm Offset Taper Biolox Delta Femoral Hip - [id number] Start: 07-01-2024 Screw Trident Ii 6.5mm 30mm Bone Low Profile Hexagonal Sterile - [id number] Start: 07-01-2024 Generator Nrstm - [id number] - [id number] Start: 08-22-2024 Lead Ns Respirat ory - [id number] - [id number] Start: 08-22-2024 Lead Nrstm Inspr 3 Elect Cuf Tnl Arnoldo Strl Lf - [id number] - [id number] Start: 08-22-2024 Functional Status Date Assessment Result Facility 11-28-2023 Functional Status N/A [facility] 05-29-2023 Functional Status N/A [facility] 11-24-2022 Functional Status N/A [facility] 04-26-2022 Functional Status N/A [facility] Clinical Notes 12-14-2020 to 01-09-2025 Essie Ryan [...] has new insurance documented in this encounter [facility] 07-09-2025 History of Presen t illness Narrative [...] nodules Nocturia 01/14/2023 Obese 11/08/2022 Obesity, morbid ([facility]) NIRMALA (obstructive sleep apnea) Other acute sinusitis [...] Morbid (severe) obesity due to excess calories ([facility]) Discussed with patient their BMI (actual, verses recommended). We have also discussed lifestyle modifications: attempts to perform physical activity as chronic conditions allow, also to monitor dietary intake: increasing protein/fruits/veggies and lowering carb intake (unless contraindicated). Limit sodas, juices, and sugary drinks.. Bipolar 1 disorder ([facility]) Is currently taking ability Does not want to see psych Bipolar disorder, unspecified ([facility]) Relevant Medications ARIPiprazole (Abilify) 15 MG [...] Morbid (severe) obesity due to excess calories ([facility]) Discussed with patient their BMI (actual, verses [...] during the day documented in this encounter [facility] 01-01-2025 Instructions Essie Ryan NP - 01/01/2025 1:00 PM EDT Referral to Ortho in [place] documented in this encounter [facility] 12-11-2024 Note Patient left a voice mail indicating she had not heard any updates regarding the alternate sleep lab or provider. Spoke with patient, confirmed referral and order were sent, provided phone number for [facility] sleep medicine. [facility] 11-11-2024 Note [place] [facility] Subjective Stacey Sahu is a 49 [...] mg tablet, Gianni (more content not included)... [facility] 10-31-2024 Miscellaneous Notes 10/30 Order received Scheduled PAP INSPIRE at [facility] on 01/29/25 Confirmation Halldisge Eduardo for PSG order Chat to pre auth OON message received Mir[employer] PAP INSPIRE Order and use 09/06/24 Elan Asteres Notes This is an Inspire Fine-tune Study, not CPAP titration. Please schedule at [facility] Email to Sanjeev documented in this encounter [employer] 10-31-2024 Telephone encounter Note 10/30 Order received Scheduled PAP INSPIRE at [facility] on 01/29/25 Confirmation Guitar Party Yasmine Eduardo for PSG order Chat to pre auth OON message received Mirriad PAP INSPIRE Order and use 09/06/24 Elan AgrawalCivilGEO Notes This is an Inspire Fine-tune Study, not CPAP titration. Please schedule at [facility] Email to Sanjeev [facility] 10-30-2024 Note XR CHEST 2 VWS History: Chest Pain Procedure: 2 view PA and Lateral chest radiograph. Comparison: 08/22/2024 Findings: The heart and lungs show no acute findings, and the mediastinum and dionisio are grossly negative . No pneumothorax. Right-sided right-sided nerve stimulator. Impression: No acute pulmonary process. Finalized by Preet Pierre MD on 10/30/2024 3:32 PM [facility] 10-30-2024 Note SLEEP CLINIC FOLLOW- UP EVALUATION [...] to a new medication started by her employment program representative. That feeling has since faded off. She [...] of getting the Inspire??? fine-tune study at [facility], closer to her home. The study has not been scheduled yet. Will try to get her scheduled at [facility], since we were not sure that [facility] would have the required technology for the study. As you may recall, she was originally referred to us by her pullman clerk for evaluation for Inspire??? therapy. She states [...] went to see Dr. Yumiko Tapia at [facility] in 2023. She states that the her [...] Leg Syndrome Sympto (more content not included)... [facility] 10-07-2024 Note Patient Education Nephrology ESWL for [...] these instructions at home: Medicines ??? Take azsm-aow-qybgqbo and prescription medicines only as told by [...] to prevent or treat constipation: ? Take ajev-aod-soeysrq or prescription medicines. ? Eat foods that [...] Document Revised: 10/13/ (more content not included)... [facility] 10-03-2024 Note Cardiovascular Medic [facility] SUBJECTIVE Chief Complaint Patient presents [...] Preserved LVEF - RVSP 27mmHg Normal cors ([facility] 03/2012) Exercise stress 2014- no ischemia [...] aspirin 81 mg (more content not included)... [facility] 10-03-2024 Note Patient here for 6 m [facility] follow up. Patient had labs done in [...] on exertion and palpitations. Hematologic/Lymphatic: Bruises/bleeds easily. [facility] 09-30-2024 History of Presen t illness Narrative [...] Inspire device doctor documented in this encounter [facility] 09-30-2024 Instructions Essie Ryan NP - 09/30/2024 1:20 PM EDT Talk with dr who placed inspire device about the dizziness to see if this is common or not If worsening in severity or freq of dizziness let me know and I will refer to ortho documented in this encounter [facility] 09-27-2024 Note SLEEP CLINIC FOLLOW- UP EVALUATION [...] was originally referred to us by her pullman clerk for evaluation for Inspire??? therapy. She states [...] went to see Dr. Yumiko Tapia at [facility] in 2023. She states that the her [...] Labs: Previous [place] [facility] [place] labs: NA [place] Sleepiness Scale: How likely are you to [...] carrying out certain (more content not included)... [facility] 09-06-2024 History of Presen t illness Narrative [facility] [address] [place] [facility] [phone] SUBJECTIVE: Patient ID (1975): Stacey Sahu is [...] History: Diagnosis Date Anxiety Arthritis Bipolar disorder ([facility]) Crohn's colitis ([facility]) Depression GERD (gastroesophageal reflux disease) H/O methicillin resistant Staphylococcus aureus infection Hyperlipidemia MRSA (methicillin resistant Staphylococcus aureus) 2022 nasal Obesity Pleurisy Pulmonary hypertension ([facility]) told many years ago Sleep apnea Visual impairment glasses Past Surgical History: Procedure Laterality Date COLECTOMY 2003 COLONOSCOPY several ENDOSCOPIC DIAGNOSTIC DRUG INDUCED SLEEP N/A 05/09/2024 Performed by Jeff Rossi MD at [facility] SURGERY HYSTERECTOMY 2017 INJECTION BURSA LARGE JOINT Right Hip Right 09/01/2023 Performed by Pj Gannon MD at [facility]JE[facility] SPINE TRANSFORAMINAL Right L 5,1 Nroot Right 05/26/2023 Performed by Pj Gannon MD at [facility] INSERTION STIMULATOR NERVE HYPOGLOSSAL - Inspire N/A 08/22/2024 Performed by Jeff Rossi MD at [facility] RELEASE DEQUERVAINS CONTRACTURE Right 10/17/2018 Performed by Dereck Bagley DO at [place] [place] [facility] THYROID SURGERY 12/2022 nodule removed and lymph node biopsy TONSILLECTOMY as a child TOTAL HIP ARTHROPLASTY Right 07/01/2024 [facility] TUBAL LIGATION 2002 ablation done at same [...] Resource Strain: Low Risk (08/28/2024) Received from [facility] Overall Financial Resource Strain (CARDIA) Difficulty of Paying Living Expenses: Not very hard Food Insecurity: No Food Insecurity (08/28/2024) Received from [facility] Hunger Vital Sign Worried About Running Out of Food in the Last Year: Never true Ran Out of Food in the Last Year: Never true Transportation Needs: No Transportation Needs (08/28/2024) Received from [facility] PRAPARE - Transportation Lack of Transportation (Medical): No Lack of Transportation (Non-Medical): No Physical Activity: Inactive (08/28/2024) Received from [facility] Exercise Vital Sign Days of Exercise per Week: 0 days Minutes of Exercise per Session: 0 min Stress: No Stress Concern Present (08/28/2024) Received from [facility] [place] [employer] - Occupational Stress Questionnaire Feeling of Stress : Only a little Social Connections: Socially Isolated (08/28/2024) Received from [facility] Social Connection and Isolation Panel [NHANES] Frequency of Communication with Friends and Family: Once a week Frequency of Social Gatherings with Friends and Family: Once a week Attends Confucianism Services: Never Active Member of Clubs or Organizations: No Attends Club or Organization Meetings: Never Marital Status: Interpersonal Safety: Unknown (08/17/2023) Received from [facility], [facility] Safety & Environment Fear of Current or Ex-Partner: Not on file Emotionally Abused: Not on file Physically Abused: Not on file Sexually Abused: Not on file Physically or Sexually Abused: Not on file Housing Instability: Low Risk (08/28/2024) Received from [facility] Housing Stability Vital Sign Unable to [...] orders for this visit: Obstructive sleep apnea Staecy Sahu was counseled that upon examination I [...] to ensure the accuracy of this automated crm functional analyst, some errors in crm functional analyst may have occurred. Varinder Jose 09/06/24 0748 Jordana Kidd CNA 09/06/24 0826 Varinder Jose 09/06/24 0840 documented in this encounter [facility] 09-06-2024 Instructions Varinder Jose - 09/06/2024 8:15 [...] test result within 7 days, please call [phone] to leave a request for your results. [...] Ultrasound, MRI or PET scan, please call [employer] Central Scheduling at [phone]. If you need to be scheduled for surgery, please call Shaila Savage, Surgery Coordinator at [phone], or our main number [phone] if you have not received a return [...] (and medications that contain aspirin): Many non-prescription (zqfe-nzx-uphcqbt or OTC) medications contain aspirin. If you are unsure whether a medication you take has aspirin, please ask your pharmacist or your surgeon's office. You must ask your surgical team if they want you to continue taking, or stop taking aspirin before your procedure. Medications containing aspirin that should be stopped 7 days before surgery: Saritha-[place]ancouver Anacin Aspirin Fiorinal Ascriptin Pamela Bufferin Lortab [...] L-carnosine Licorice Kava kava Milk thistle Multivitamin Jbsa Randolph-3 Resveratrol Skullcap Matamoras's wort Vitamin E Adipex (phentermine) Jacob (orlistat) Hydroxycut Elvie Encinaspberry Ketones [id number] should be stopped 14 days before surgery You will receive specific instructions regarding your insulin and anti-coagulant/anti-platelet medications (if applicable). -- documented in this encounter [facility] 08-28-2024 History of Presen t illness Narrative [...] right Allergic rhinitis Anxiety 07/25/2023 Bipolar disorder ([facility]) Chest pain 02/09/2012 Chronic GERD Chronic rhinitis 2023 Constipation COVID-19 01/2022 Crohn's disease ([facility]) De Quervain's tenosynovitis, right Dyspnea on exertion Edema of extremities Elevated serum glucose Enlarged thyroid ([facility]) Flank pain 11/08/2022 Gross hematuria 11/08/2022 History of nausea Hot flashes Hyperlipidemia ([facility]) 09/11/2023 Lumbar back pain with radiculopathy affecting right lower extremity Multiple thyroid nodules ([facility]) Nocturia 01/14/2023 Obese 11/08/2022 Obesity, morbid [...] both small and large intestine without complications ([facility]) Continue to follow with GI Gastro-esophageal [...] inspire placement recenlty PAH (pulmonary artery hypertension) ([facility]) Saw cardiology in the past, was [...] Morbid (severe) obesity due to excess calories ([facility]) Discussed with patient their BMI (actual, verses recommended). We have also discussed lifestyle modifications: attempts to perform physical activity as chronic conditions allow, also to monitor dietary intake: increasing protein/fruits/veggies and lowering carb intake (unless contraindicated). Limit sodas, juices, and sugary drinks.. Bipolar disorder, unspecified ([facility]) Used to see psych, does not [...] inspire placement recenlty documented in this encounter [facility] 08-28-2024 Instructions Essie Ryan NP - 08/28/2024 1:20 PM EST No medication dose changes Get labs checked-they are fasting, but make sure you drink plenty of water before going documented in this encounter [facility] 07-30-2024 Note HNO ID: [id number] Author: LOIS MCKEON MD Service: ? Author [...] she seeks an appointment. Lois Mckeon MD [facility] 07-30-2024 History of Presen t illness [...] Lois Mckeon MD documented in this encounter [facility] 07-30-2024 History of Presen t illness [...] PATIENT PRESENTS WITH AN IMPLANTABLE OR ATTACHED CERTIFIED DIABETES EDUCATOR: No RADIOLOGY DEPARTMENT: General X-ray: Exam(s) Completed: Pelvis X-Ray: Pelvis with Hip Right and Wt. Bearing PERIPHERAL IV DATA: Not applicable SIGNED BY: MAMTA Carbajal July 30, 2024 1:34 PM documented in this encounter [facility] 07-30-2024 Note HNO ID: [id number] Author: LETTY ONTIVEROS CT Service: Radiology Author [...] PATIENT PRESENTS WITH AN IMPLANTABLE OR ATTACHED CERTIFIED DIABETES EDUCATOR: No RADIOLOGY DEPARTMENT: General X-ray: Exam(s) Completed: Pelvis X-Ray: Pelvis with Hip Right and Wt. Bearing PERIPHERAL IV DATA: Not applicable SIGNED BY: MAMTA Carbajal July 30, 2024 1:34 PM [facility] 07-29-2024 Miscellaneous Notes Pre-Cert - Vivian Yohan - Called and told me Stacey's surgery is not covered under her new [employer] health insurance. Vivian said she would call Stacey and give her the update to see what she wants to do. documented in this encounter [facility] 07-29-2024 Telephone encounter Note Pre-Cert - Vivian Mason - Called and told me Stacey's surgery is not covered under her new [employer] health insurance. Vivian said she would call Stacey and give her the update to see what she wants to do. [facility] 07-26-2024 Miscellaneous Notes Summary: 08/01/24 [facility] Parent / Self notified of surgery time, 11:30 told them to arrive two hours prior. 09:30 emergency room entrance. Thank you! Shaila - [phone] documented in this encounter [facility] 07-26-2024 Telephone encounter Note Summary: 08/01/24 [facility] Parent / Self notified of surgery time, 11:30 told them to arrive two hours prior. 09:30 emergency room entrance. Thank you! Shaila - [phone] [facility] [employer] 07-23-2024 History and physical note PRE-ADMISSION TESTING HISTORY AND PHYSICAL EXAM DATE: 07/23/24 PCP: ESSIE RYAN, LAY-YARD ASSISTANT HISTORY OF PRESENT ILLNESS: Stacey Sahu, a 49 y.o. White or female, presents to [facility] for a pre-surgical H&P. The patient has [...] History: Diagnosis Date Anxiety Arthritis Bipolar disorder ([facility]) Crohn's colitis ([facility]) Depression GERD (gastroesophageal reflux disease) H/O methicillin resistant Staphylococcus aureus infection Hyperlipidemia MRSA (methicillin resistant Staphylococcus aureus) 2022 nasal Obesity Pleurisy Pulmonary hypertension ([facility]) told many years ago Sleep apnea Visual impairment glasses PAST SURGICAL HISTORY: Past Surgical History: Procedure Laterality Date COLECTOMY 2003 COLONOSCOPY several ENDOSCOPIC DIAGNOSTIC DRUG INDUCED SLEEP N/A 05/09/2024 Performed by Jeff Rossi MD at [facility] SURGERY HYSTERECTOMY 2017 INJECTION BURSA LARGE JOINT Right Hip Right 09/01/2023 Performed by Pj Gannon MD at [facility] INJE[facility] SPINE TRANSFORAMINAL Right L 5,1 Nroot Right 05/26/2023 Performed by Pj Gannon MD at [facility] RELEASE DEQUERVAINS CONTRACTURE Right 10/17/2018 Performed by Dereck Bagley DO at [facility] THYROID SURGERY 12/2022 nodule removed and lymph node biopsy TONSILLECTOMY as a child TOTAL HIP ARTHROPLASTY Right 07/01/2024 [facility] TUBAL LIGATION 2002 ablation done at same [...] place, and time. PERTINENT TESTING AVAILABLE IN [facility] (WITHIN THE PAST 2 YEARS): EK10/03/2018 Echo: [...] the most recent lab values available in [facility] at the time the H&P was signed. ASSESSMENT / DIAGNOSIS: Obstructive sleep apnea [G47.33] PLAN: Stacey Sahu is scheduled for Insertion Stimulator Nerve Hypoglossal - Inspire on 08/01/[address] Rossi. ADELA Martinez 07/23/24 1536 [facility] [employer] Work Phone: 07-23-2024 History and physical note PRE-ADMISSION TESTING HISTORY AND PHYSICAL EXAM DATE: 07/23/24 PCP: ADELA SMITH HISTORY OF PRESENT ILLNESS: Stacey Sahu, a 49 y.o. White or female, presents to [facility] for a pre-surgical H&P. The patient has [...] History: Diagnosis Date Anxiety Arthritis Bipolar disorder ([facility]) Crohn's colitis ([facility]) Depression GERD (gastroesophageal reflux disease) H/O methicillin resistant Staphylococcus aureus infection Hyperlipidemia MRSA (methicillin resistant Staphylococcus aureus) 2022 nasal Obesity Pleurisy Pulmonary hypertension ([facility]) told many years ago Sleep apnea Visual impairment glasses PAST SURGICAL HISTORY: Past Surgical History: Procedure Laterality Date COLECTOMY 2002 COLONOSCOPY several ENDOSCOPIC DIAGNOSTIC DRUG INDUCED SLEEP N/A 05/09/2024 Performed by Jeff Rossi MD at [facility] HYSTERECTOMY 2017 INJECTION BURSA LARGE JOINT Right Hip Right 09/01/2023 Performed by Pj Gannon MD at [facility] INJECTION SPINE TRANSFORAMINAL Right L 5,1 Nroot Right 05/26/2023 Performed by Pj Gannon MD at [facility] RELEASE DEQUERVAINS CONTRACTURE Right 10/17/2018 Performed by Dereck Bagley DO at [facility] THYROID SURGERY 12/2022 nodule removed and lymph node biopsy TONSILLECTOMY as a child TOTAL HIP ARTHROPLASTY Right 07/01/2024 [facility] TUBAL LIGATION 2002 ablation done at same [...] place, and time. PERTINENT TESTING AVAILABLE IN [facility] (WITHIN THE PAST 2 YEARS): EK10/03/2018 Echo: [...] the most recent lab values available in [facility] at the time the H&P was signed. ASSESSMENT / DIAGNOSIS: Obstructive sleep apnea [G47.33] PLAN: Stacey Sahu is scheduled for Insertion Stimulator Nerve Hypoglossal - Inspire on 08/01/[address] Rossi. ADELA Martinez 07/23/24 1536 documented in this encounter [facility] 07-23-2024 Instructions Rashida Mcneil RN - 07/23/2024 2:15 PM EST Your surgery/procedure is scheduled at [facility] on 08/01/24 at to call with arrival time [facility] Address: [address] [place] [address], [address] Park in the Emergency Center Parking lot. Report to the front facer in the Emergency/Surgery Registration lobby of the hospital. Notify your SURGEON if you develop any illness such as a cold, cough, fever, sore throat, vomiting or are hospitalized between now and your surgery. Please call Pre-Admission Clinic at [phone] if you have any questions prior to surgery. For questions the morning of surgery, call the Pre-op Department at [phone]. Medication Instructions (Do not stop your medications [...] would like to schedule therapy at a [facility] facility, please call [phone] ([phone]). Do not use lotions, creams, powders, perfume, make up, cologne or after-shaves day of surgery. Remove ALL jewelry including wedding rings, body piercings, hair extensions that contain metal, nail romanian, make-up, and contact lens. You may brush your teeth the morning of surgery, but do not swallow the water. Wear your dentures and partial plates to the hospital (no adhesive). Shower the night the before. If applicable, use the CHG (chlorhexidine gluconate) soap or wipes. Please be advised, [employer] has transitioned to a cashless payment system. [...] RIGHTS AND RESPONSIBILITIES As a patient at [facility], you have the right to: Receive medical care and be informed of who is taking care of you Be treated with dignity and respect Have a family member/teleservices representative of choice and your physician notified of your admission Receive information and actively participate in decisions about your care and treatment Refuse care, treatment and services Decide who may provide your support and speak for you Access hindu and spiritual services Participate in ethical issues [...] of hospital charges and payment methods Patient/patient teleservices representative responsibilities are to: Provide information about [...] in clean clothes. documented in this encounter [facility] 07-01-2024 Note HNO ID: [id number] Author: DANA HOWE MD Service: Anesthesiology Author [...] July 01, 2024 TIME: 8:07 AM CSN: [id number] [facility] 06-05-2024 History and physical note Images from the original note were not included. [facility] Pre[facility]est[facility] HISTORY AND PHYSICAL EXAMINATION SERVICE DATE: 06/05/2024 SERVICE TIME: 9:56 AM PRIMARY CARE PHYSICIAN: Essie Ryan CNP, YARD ASSISTANT REASON FOR VISIT: Stacey Sahu is a [...] STOP-Bang Score: 0 (Non-compliant with CPAP ) [id number] Score: Age: <65 Sex: female [id number] Score: ARISCAT Score: Age: <=50 Preoperative SpO2: [...] x 4 Crohn's disease without complication (HCC) [id number] Pulmonary Htn (Hcc) Obese Nirmala (Obstructive Sleep [...] fevers. Neuro: No history of TIA's, stroke, VIDEOGAME DESIGNER tumor, impaired sensorium, hemiplegia, paraplegia or quadraplegia. [...] Stacey Sahu DATE: 06/05/2024 TIME: 9:56 AM [facility] 06-05-2024 History and physical note Images from the original note were not included. [facility]est[facility] HISTORY AND PHYSICAL EXAMINATION SERVICE DATE: 06/05/2024 SERVICE TIME: 9:56 AM PRIMARY CARE PHYSICIAN: Essie Ryan CNP, YARD ASSISTANT REASON FOR VISIT: Stacey Sahu is a [...] STOP-Bang Score: 0 (Non-compliant with CPAP ) [id number] Score: Age: <65 Sex: female [id number] Score: ARISCAT Score: Age: <=50 Preoperative SpO2: [...] x 4 Crohn's disease without complication (HCC) [id number] Pulmonary Htn (Hcc) Obese Nirmala (Obstructive Sleep [...] fevers. Neuro: No history of TIA's, stroke, VIDEOGAME DESIGNER tumor, impaired sensorium, hemiplegia, paraplegia or quadraplegia. [...] voices comprehension and compliance. SIGNATURE: Negrita Tejeda APRN.YARD ASSISTANT PATIENT NAME: Stacey Sahu DATE: 06/05/2024 TIME: 9:56 AM documented in this encounter [facility] 06-04-2024 Instructions Negrita Tejeda APRN.NIURKA - 06/04/2024 8:24 AM EST Images from the original note were not included. [facility] Pre-Anesthesia [facility]ation [facility] PATIENT PREOPERATIVE INSTRUCTIONS Lois Mckeon MD has scheduled you for your procedure at this surgery center: [facility]: [phone] --[address] [place] [address]. On your scheduled day of surgery, please [...] office. If you are currently using a pmiu-utc-edoi injectable or oral medication for diabetes or [...] Procedures: - YOU MUST HAVE A RESPONSIBLE EXPLOSIVE MAN TAKE YOU HOME. A REGISTRAR NURSES' REGISTRY OR COMPUTER COMPOSITOR CANNOT BE MADE A RESPONSIBLE EXPLOSIVE MAN. - We recommend that a responsible person [...] Advance Directive, please fax a copy to [phone] or email to for it to be [...] chart that day. documented in this encounter [facility] 05-29-2024 History of Presen t illness [...] specialist for this PAH (pulmonary artery hypertension) ([facility]) Saw cardiology in the past, was [...] Morbid (severe) obesity due to excess calories ([facility]) Discussed with patient their BMI (actual, verses recommended). We have also discussed lifestyle modifications: attempts to perform physical activity as chronic conditions allow, also to monitor dietary intake: increasing protein/fruits/veggies and lowering carb intake (unless contraindicated). Limit sodas, juices, and sugary drinks.. Bipolar 1 disorder ([facility]) Is currently taking ability Does not [...] specialist for this documented in this encounter [facility] 05-29-2024 Instructions Essie Ryan NP - 05/29/2024 2:20 PM EST No med dose changes documented in this encounter [facility] 05-17-2024 History of Presen t illness N[facility]ative [facility] [address] [facility] [id number] SUBJECTIVE: Patient ID (1975): Stacey Sahu is [...] History: Diagnosis Date Anxiety Arthritis Bipolar disorder ([facility]) Chronic pain disorder Crohn's colitis ([facility]) Depression GERD (gastroesophageal reflux disease) H/O methicillin resistant Staphylococcus aureus infection Hyperlipidemia Joint pain Obesity Pleurisy Pulmonary hypertension ([facility]) Pulmonary hypertension ([facility]) Sleep apnea cpap Past Surgical History: Procedure Laterality Date COLON SURGERY part of bowel removed d/t crohns dx COLONOSCOPY ENDOSCOPIC DIAGNOSTIC DRUG INDUCED SLEEP N/A 05/09/2024 Performed by Jeff Rossi MD at [facility] HYSTERECTOMY 2017 INJECTION BURSA LARGE JOINT Right Hip Right 09/01/2023 Performed by Pj Gannon MD at [facility] INJECTION SPINE TRANSFORAMINAL Right L 5,1 Nroot Right 05/26/2023 Performed by Pj Gannon MD at [facility] LYMPH NODE BIOPSY RELEASE DEQUERVAINS CONTRACTURE Right 10/17/2018 Performed by Dereck Bagley DO at [facility] THYROIDECTOMY, PARTIAL 12/2022 nodule TONSILLECTOMY as [...] Resource Strain: Patient Declined (06/14/2023) Received from [facility] Overall Financial Resource Strain (CARDIA) Difficulty of Paying Living Expenses: Patient declined Food Insecurity: No Food Insecurity (05/06/2024) Hunger Screening Food Insecurity - Worry: Never True Food Insecurity - Inability: Never True Transportation Needs: No Transportation Needs (06/14/2023) Received from [facility] PRAPARE - Transportation Lack of Transportation (Medical): No Lack of Transportation (Non-Medical): No Physical Activity: Unknown (06/14/2023) Received from [facility] Exercise Vital Sign Days of Exercise per Week: 2 days Minutes of Exercise per Session: Patient declined Stress: Patient Declined (06/14/2023) Received from [facility] [employer] [place] [employer] - Occupational Stress Questionnaire Feeling of Stress : Patient declined Social Connections: Unknown (06/14/2023) Received from [facility] Social Connection and Isolation Panel [NHANES] Frequency of Communication with Friends and Family: Patient declined Frequency of Social Gatherings with Friends and Family: Patient declined Attends Confucianism Services: Patient declined Active Member of Clubs or Organizations: Patient declined Attends Club or Organization Meetings: Patient declined Marital Status: Interpersonal Safety: Unknown (08/17/2023) Received from [facility], [facility] Safety & Environment Fear of Current or Ex-Partner: Not on file Emotionally Abused: Not on file Physically Abused: Not on file Sexually Abused: Not on file Physically or Sexually Abused: Not on file Housing Instability: Unknown (06/14/2023) Received from [facility], [facility] Housing Stability Vital Sign Unable to [...] to ensure the accuracy of this automated crm functional analyst, some errors in crm functional analyst may have occurred. Varinder Minniear 05/17/24 0744 Varinder Minniear 05/17/24 0819 Varinder Minniear 05/17/24 0820 documented in this encounter [employer] 05-17-2024 Instructions Jeff Rossi MD - 05/17/2024 [...] test result within 7 days, please call [phone] to leave a request for your results. [...] Ultrasound, MRI or PET scan, please call [employer] Central Scheduling at [phone]. If you need to be scheduled for surgery, please call Shaila Savage, Surgery Coordinator at [phone], or our main number [phone] if you have not received a return [...] (and medications that contain aspirin): Many non-prescription (lely-tct-csyigot or OTC) medications contain aspirin. If you are unsure whether a medication you take has aspirin, please ask your pharmacist or your surgeon's office. You must ask your surgical team if they want you to continue taking, or stop taking aspirin before your procedure. Medications containing aspirin that should be stopped 7 days before surgery: Saritha-[place] Anacin Aspirin Fiorinal Ascriptin Pamela Bufferin Lortab [...] L-carnosine Licorice Kava kava Milk thistle Multivitamin Jbsa Randolph-3 Resveratrol Skullcap Matamoras's wort Vitamin E Adipex (phentermine) Jacob (orlistat) Hydroxycut Garcinia Cambogia Raspberry Ketones [id number]-23 should be stopped 14 days before surgery You will receive specific instructions regarding your insulin and anti-coagulant/anti-platelet medications (if applicable). -- documented in this encounter [facility] [employer] [facility] 05-09-2024 Telephone encounter Note PSS calling from Dr Rossi's office to ask how soon the PT could be scheduled for surgery for inspire implant, nerve stimulator. General for 3 hours. Please advise [phone] ask to speak with Alejandra or Kashmir. [facility] 05-09-2024 Miscellaneous Notes PSS calling from Dr Rossi's office to ask how soon the PT could be scheduled for surgery for inspire implant, nerve stimulator. General for 3 hours. Please advise [phone] ask to speak with Alejandra or Kashmir. documented in this encounter [facility] 05-09-2024 Miscellaneous Notes Surgery Scheduling Request [...] 01. I called her Ortho Surgeon at [facility], Dr Iwona Mckeon to ask about timeframe for being safe to have this surgery after her hip replacement recovery. Dr Iwona Mckeon nurse said she would call me back. documented in this encounter [employer] 05-09-2024 Telephone encounter Note Surgery Scheduling Request 05/09/24 Patient: Stacey Sahu : 1975 Surgical Procedure(s): Inspire Anesthesia: General Surgery Time: 3 hours Facility Preference: No preference Post Op Destination: Outpatient Preop Anesthesia Appointment?: Yes Medical Clearance Required?: No Nerve Monitor? Yes Special Equipment? Inspire When should patient follow up after surgery? One week Additional Comments: [employer] [employer] Work Phone: 05-09-2024 Telephone encounter Note 05-09, Called patient to schedule Inspire installation, Stacey mentioned she's having hip replacement Jul 01. I called her Ortho Surgeon at [facility], Dr Iwona Mckeon to ask about timeframe for being safe to have this surgery after her hip replacement recovery. Dr Iwona Mckeon nurse said she would call me back. [facility] 05-02-2024 Instructions Formatting of th is note might be different from the original. Your surgery/procedure is scheduled at [facility] on 05/09/2024 at 10:30 am Arrival Time 8:30 am [facility] Address: [address] [place] [address], [address] [place] [address] in the Emergency Center Parking lot. Report to the front facer in the Emergency/Surgery Registration lobby of the hospital. Notify your SURGEON if you develop any illness such as a cold, cough, fever, sore throat, vomiting or are hospitalized between now and your surgery. Please call Pre-Admission Clinic at [phone] if you have any questions prior to surgery. For questions the morning of surgery, call the Pre-op Department at [phone]. Medication Instructions (Do not stop your medications [...] would like to schedule therapy at a [facility] facility, please call [phone] ([phone]). Do not use lotions, creams, powders, perfume, make up, cologne or after-shaves day of surgery. Remove ALL jewelry including wedding rings, body piercings, hair extensions that contain metal, nail romanian, make-up, and contact lens. You may brush your teeth the morning of surgery, but do not swallow the water. Wear your dentures and partial plates to the hospital (no adhesive). Shower the night the before. If applicable, use the CHG (chlorhexidine gluconate) soap or wipes. Please be advised, [facility] has transitioned to a cashless payment system. [...] RIGHTS AND RESPONSIBILITIES As a patient at [facility], you have the right to: Receive medical care and be informed of who is taking care of you Be treated with dignity and respect Have a family member/teleservices representative of choice and your physician notified of your admission Receive information and actively participate in decisions about your care and treatment Refuse care, treatment and services Decide who may provide your support and speak for you Access hindu and spiritual services Participate in ethical issues [...] of hospital charges and payment methods Patient/patient teleservices representative responsibilities are to: Provide information about health status to facilitate care, treatment and services Follow the treatment, plan, keep appointments and speak up when you do not understand the plan Respect the rights of other patients and healthcare personnel Follow organizational rules and regulations that support quality care and a safe environment Fulfill financial obligations as promptly as possible [facility] 05-02-2024 Miscellaneous Notes Your surgery/procedure is scheduled at [facility] on 05/09/2024 at 10:30 am Arrival Time 8:30 am [facility] Address: [address] [place] [address], [facility] in the Emergency Center Parking lot. Report to the front facer in the Emergency/Surgery Registration lobby of the hospital. Notify your SURGEON if you develop any illness such as a cold, cough, fever, sore throat, vomiting or are hospitalized between now and your surgery. Please call Pre-Admission Clinic at [phone] if you have any questions prior to surgery. For questions the morning of surgery, call the Pre-op Department at [phone]. Medication Instructions (Do not stop your medications [...] would like to schedule therapy at a [facility] facility, please call [phone] ([phone]). Do not use lotions, creams, powders, perfume, make up, cologne or after-shaves day of surgery. Remove ALL jewelry including wedding rings, body piercings, hair extensions that contain metal, nail romanian, make-up, and contact lens. You may brush your teeth the morning of surgery, but do not swallow the water. Wear your dentures and partial plates to the hospital (no adhesive). Shower the night the before. If applicable, use the CHG (chlorhexidine gluconate) soap or wipes. Please be advised, [facility] has transitioned to a cashless payment system. [...] RIGHTS AND RESPONSIBILITIES As a patient at [facility], you have the right to: Receive medical care and be informed of who is taking care of you Be treated with dignity and respect Have a family member/teleservices representative of choice and your physician notified of your admission Receive information and actively participate in decisions about your care and treatment Refuse care, treatment and services Decide who may provide your support and speak for you Access hindu and spiritual services Participate in ethical issues [...] of hospital charges and payment methods Patient/patient teleservices representative responsibilities are to: Provide information about [...] promptly as possible documented in this encounter [facility] 04-19-2024 Miscellaneous Notes Surgery Scheduling Request 04/19/24 Patient: Stacey Sahu : 1975 Surgical Procedure(s): DISE Anesthesia: MAC Surgery Time: 30 min Facility Preference: No preference When should patient follow up after surgery? 1-2 weeks Left message to schedule surgery documented in this encounter [facility] 04-19-2024 Telephone encounter Note Surgery Scheduling Request 04/19/24 Patient: Stacey Sahu : 1975 Surgical Procedure(s): DISE Anesthesia: MAC Surgery Time: 30 min Facility Preference: No preference When should patient follow up after surgery? [facility] Telephone encounter Note Left message to schedule [facility] 04-19-2024 History of Presen t illness Narrative Images from the original note were not included. [facility] ([place], [place]) PHYSICIANS EAR, NOSE AND THROAT [address] [place] [address] SUBJECTIVE: Patient ID (1975): Stacey Sahu is [...] History: Diagnosis Date Anxiety Arthritis Bipolar disorder ([facility]) Chronic pain disorder Crohn's colitis ([facility]) Depression GERD (gastroesophageal reflux disease) H/O methicillin resistant Staphylococcus aureus infection Hyperlipidemia Joint pain Obesity Pleurisy Pulmonary hypertension ([facility]) Pulmonary hypertension ([facility]) Sleep apnea cpap Past Surgical History: Procedure Laterality Date COLON SURGERY part of bowel removed d/t crohns dx COLONOSCOPY HYSTERECTOMY 2017 INJECTION BURSA LARGE JOINT Right Hip Right 09/01/2023 Performed by Pj Gannon MD at [facility] INJECTION SPINE TRANSFORAMINAL Right L 5,1 Nroot Right 05/26/2023 Performed by Pj Gannon MD at [facility] LYMPH NODE BIOPSY RELEASE DEQUERVAINS CONTRACTURE Right 10/17/2018 Performed by Dereck Bagley DO at [facility] THYROIDECT[facility], PARTIAL TONSILLECTOMY TUBAL LIGATION Family [...] Resource Strain: Patient Declined (06/14/2023) Received from [facility] Overall Financial Resource Strain (CARDIA) Difficulty of Paying Living Expenses: Patient declined Food Insecurity: No Food Insecurity (09/12/2023) Hunger Screening Food Insecurity - Worry: Never True Food Insecurity - Inability: Never True Transportation Needs: No Transportation Needs (06/14/2023) Received from [facility] PRAPARE - Transportation Lack of Transportation (Medical): No Lack of Transportation (Non-Medical): No Physical Activity: Unknown (06/14/2023) Received from [facility] Exercise Vital Sign Days of Exercise per Week: 2 days Minutes of Exercise per Session: Patient declined Stress: Patient Declined (06/14/2023) Received from [facility] of Occupational Health - Occupational Stress Questionnaire Feeling of Stress : Patient declined Social Connections: Unknown (06/14/2023) Received from [facility] Social Connection and Isolation Panel [NHANES] Frequency of Communication with Friends and Family: Patient declined Frequency of Social Gatherings with Friends and Family: Patient declined Attends Confucianism Services: Patient declined Active Member of Clubs or Organizations: Patient declined Attends Club or Organization Meetings: Patient declined Marital Status: Interpersonal Safety: Unknown (08/17/2023) [facility] [place] Safety & Environment Fear of Current or Ex-Partner: Not on file Emotionally Abused: Not on file Physically Abused: Not on file Sexually Abused: Not on file Physically or Sexually Abused: Not on file Housing Instability: Unknown (06/14/2023) Received from [facility] Housing Stability Vital Sign Unable to [...] (NIRMALA), including the Inspire hypoglossal nerve stimulator (https://www.inspiresleep.Lyfepoints/) , tonsillectomy with uvulopalatopharyngoplasty, and hyoid advancement surgery using the Airlift system for NIRMALA (EventSneaker- https://www.Rainbow.Lyfepoints/ ). Stacey Sahu was counseled about the [...] this chart were generated using voice recognition Moodyo dictation software. Although every effort was made to ensure the accuracy of this automated crm functional analyst, some errors in crm functional analyst may have occurred. Varinder Minniear 04/19/24 0747 Varinder Minniear 04/19/24 0909 Varinder Minniear 04/19/24 0910 Varinder Minniear 04/19/24 0917 documented in this encounter [facility] [employer] 04-19-2024 Instructions Jeff Rossi MD - 04/19/2024 [...] test result within 7 days, please call [phone] to leave a request for your results. [...] Ultrasound, MRI or PET scan, please call [employer] Central Scheduling at [phone]. If you need to be scheduled for surgery, please call [facility] Florian Surgery Coordinator at [phone], or Negrita at [phone] or our main number [phone] if you have not received a return [...] (and medications that contain aspirin): Many non-prescription (fpzu-hoe-ybgsxrk or OTC) medications contain aspirin. If you are unsure whether a medication you take has aspirin, please ask your pharmacist or your surgeon's office. You must ask your surgical team if they want you to continue taking, or stop taking aspirin before your procedure. Medications containing aspirin that should be stopped 7 days before surgery: Saritha-[place] Anacin Aspirin Fiorinal Ascriptin Pamela Bufferin Lortab [...] L-carnosine Licorice Kava kava Milk thistle Multivitamin [employer] Randolph-3 Resveratrol Skullcap Jenny's wort Vitamin E Adipex (phentermine) Jacob (orlistat) Hydroxycut Garcinia Cambogia Raspberry Ketones Phrefycy-O-76 should be stopped 14 days before surgery You will receive specific instructions regarding your insulin and anti-coagulant/anti-platelet medications (if applicable). -- documented in this encounter [facility] 04-16-2024 Note HNO ID: [id number] Author: LOIS MCKEON MD Service: ? Author [...] Assessment right hip arthritis. Lois Mckeon MD [facility] 04-16-2024 History of Presen t illness [...] Lois Mckeon MD documented in this encounter [facility] 04-10-2024 History of Presen t illness [...] wearing PAP, did see a specialist in [place] for eval for inspire, and is going [...] right Allergic rhinitis Anxiety 07/25/2023 Bipolar disorder ([facility]) Chest pain 02/09/2012 Chronic GERD Chronic rhinitis 2023 Constipation COVID-19 01/2022 Crohn's disease ([facility]) De Quervain's tenosynovitis, right Dyspnea on exertion Edema of extremities Elevated serum glucose Enlarged thyroid ([facility]) Flank pain 11/08/2022 Gross hematuria 11/08/2022 History of nausea Hot flashes Hyperlipidemia ([facility]) 09/11/2023 Lumbar back pain with radiculopathy affecting right lower extremity Multiple thyroid nodules ([facility]) Nocturia 01/14/2023 Obese 11/08/2022 Obesity, morbid ([facility]) NIRMALA (obstructive sleep apnea) Other acute sinusitis 06/07/2023 Other hyperlipidemia ([facility]) 12/14/2020 Pain of right upper extremity [...] Addressed This Visit PAH (pulmonary artery hypertension) ([facility]) Saw cardiology in the past, was on letaris, no longer taking it or fu with cardiology Non compliant with PAP, looking into inspire No chest pain/pressure/dyspnea Chronic rhinitis Relevant Medications cetirizine (ZyrTEC) 10 MG tablet Anxiety Prn buspar Bipolar disorder, unspecified ([facility]) - Primary Will increase abilify to 15mg Fu in 6 weeks Relevant Medications ARIPiprazole (Abilify) 15 MG tablet Body mass index (BMI) 38.0-38.9, adult Morbid (severe) obesity due to excess calories ([facility]) Neuritis of left median nerve resolved Neuritis of right median nerve resolved Needs flu shot Pt declined Other Visit Diagnoses Gastroesophageal reflux disease, unspecified whether esophagitis present Relevant Medications omeprazole (PriLOSEC) [address] capsule documented in this encounter [facility] 03-19-2024 Note HNO ID: [id number] Author: LOIS MCKEON MD Service: ? Author Type: Physician Type: Progress Notes Filed: 03/19/2024 10:34 Note Text: She is here for chronic right hip and groin pain. Has been injected multiple times and done therapy. Takes medication. Has progressed to the point where she has pain that is affecting her quality of life. 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 Pain [...] the scan is complete. Lois Mckeon MD [facility] 03-19-2024 History of Presen t illness Narrative She is here for chronic right hip and groin pain. Has been injected multiple times and done therapy. Takes medication. Has progressed to the point where she has pain that is affecting her quality of life. 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 Pain [...] Lois Mckeon MD documented in this encounter [facility] 03-19-2024 Instructions Clarissa Zacarias RN - 03/19/2024 10:[address] Mckeon has ordered a cream that will be delivered to your home. The company, [employer], will call or text you from a [phone] phone number. Please reply or answer the call to start the process. If you do not hear from them within 48 hours, please call . documented in this encounter [facility] 03-19-2024 History of Presen t illness [...] PATIENT PRESENTS WITH AN IMPLANTABLE OR ATTACHED CERTIFIED DIABETES EDUCATOR: No RADIOLOGY DEPARTMENT: General X-ray: Exam(s) Completed: Pelvis X-Ray: Pelvis with Hip Right PERIPHERAL IV DATA: Not applicable SIGNED BY: MARK Atwood) March 19, 2024 9:04 AM documented in this encounter [facility] 03-19-2024 Note HNO ID: [id number] Author: PAULETTE COREA RT(Javy) Service: ? Author [...] PATIENT PRESENTS WITH AN IMPLANTABLE OR ATTACHED CERTIFIED DIABETES EDUCATOR: No RADIOLOGY DEPARTMENT: General X-ray: Exam(s) Completed: Pelvis X-Ray: Pelvis with Hip Right PERIPHERAL IV DATA: Not applicable SIGNED BY: Paulette Corea, RT(R) March 19, 2024 9:04 AM [facility] 03-18-2024 Telephone encounter Note Left message with pt to be sure to have report as well as images, but we may need an xray if do not have, he will look at xray and do assessment and determine if surgery will be an option. Clarissa Zacarias RN [facility] Work Phone: 03-18-2024 Miscellaneous Notes Left [...] at her appt on 03/19 Callback number: [phone] documented in this encounter [facility] 03-18-2024 Telephone encounter Note Name of Caller: stacey Relationship to patient: patient Last visit in this department: Visit date not found Reason for Call: Other : has questions about what to expect at her appt on 03/19 Callback number: [phone] [facility] 03-06-2024 Note SLEEP CLINIC INITIAL EVALUATION Date of Evaluation: 03/06/24 Referring Physician: Dr. Yumiko Tapia Chief Complaints: NIRMALA and intolerance to CPAP History of Presenting Illness: Stacey Sahu is a 48 y.o. woman presenting to the sleep clinic for the first time. She is referred to us by her pullman clerk for evaluation for Inspire??? therapy. She states [...] went to see Dr. Yumiko Tapia at [facility] earlier this year. She states that the [...] et al Anesthesiology 2008 and BJA 2012 [place] Sleepiness Scale: How likely are you to [...] of dozing === (more content not included)... [facility] 03-06-2024 Note Currently resolved [facility] 03-06-2024 Note Currently stable and controlled and she is going for pulmonary appt today [facility] 03-06-2024 Note Lipid abnormalities are still elevated with Chol and LDL not within goal. D/w pt will increase lipitor to 80 mg daily and pt to call office for any myalgias or concerns, repeat labs in 2-3 months- LFT and Lipid levels. [facility] 03-06-2024 Note Pt is here for a six month follow up. Pt denies sob, chest pains, palpatations Review of Systems Cardiovascular: Chest pain: discomfort , intermittent. Palpitations: not as bad . All other systems reviewed and are negative. [facility] 03-06-2024 Note [facility]TP CARDIOLOGY PROGR ESS NOTE [...] she has appointment with pulmonary today in [place]- r/t NIRMALA untreated. 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 Pt states it has been going on [...] MG DR capsule documented in this encounter [facility] 11-28-2023 Hospital Discharg e instructions Patient [...] include: ?8 oz (237 mL) of milk, jhzgfnx-amvzgbohyalb-rckik milk, and calcium-fortifiedfruit juice. Calcium-fortified means that [...] ?Spinach (cooked), rhubarb, beets, sweet potatoes, and Solomon Islander chard. ?Peanuts. ?Potato chips, singaporean fries, and baked potatoes with skin on. ?Nuts and nut products. ?Chocolate. If you regularly take a diuretic medicine, make sure to eat at least 1 or 2 servings of fruits or vegetables that are high in potassium each day. These include: ?Avocado. ?Banana. ?[place], prune, carrot, or tomato juice. ?Baked potato. [...] magnesium, fish oil, or vitamin B6. Take vvgw-ehq-oythwvu and prescription medicines only as told by [...] Casseroles. Pizza. Lasagna. Frozen meals. Potato chips. Bermudian fries. The items listed above may not [...] provider. Document Revised: 09/22/2022 Document Reviewed: 09/22/2022 [facility] ([employer]) Patient Education 2022 [employer]. Follow Up Care 05/29/2023 15:22:48 With:ANGELICA SHAIKH, LESLIE Medina, URL Address: [address] [place] [address] When: Unknown [facility] [employer] 09-20-2023 Miscellaneous Notes [facility] called to say that they are out of network for Stacey's insurance. A referral form will be sent once she selects an orthopedic in-network documented in this encounter [facility] 09-20-2023 Telephone encounter Note [facility] called to say that they are out of network for Stacey's insurance. A referral form will be sent once she selects an orthopedic in-network [facility] [employer] [facility] 09-12-2023 History of Presen t illness Narrative [facility] [address] [place] [address] Patient: Stacey Sahu Sex: female : 1975 [...] patches min: NSAIDS, ice/heat, accupuncture, inj at [facility] pain clinic Mod relief: Narcotics Sign: Steroid inj by Ortho) for the symptoms. The treatment provided moderate relief. The effect of pain on patient's ADLS: Moderate Impairment. Past Medical History: Diagnosis Date Arthritis Bipolar disorder ([facility]) Chronic pain disorder Crohn's colitis ([facility]) Depression GERD (gastroesophageal reflux disease) H/O methicillin resistant Staphylococcus aureus infection Hyperlipidemia Joint pain Pleurisy Pulmonary hypertension ([facility]) Pulmonary hypertension ([facility]) Sleep apnea cpap Past Surgical History: Procedure Laterality Date COLON SURGERY part of bowel removed d/t crohns dx HYSTERECTOMY 2017 INJECTION BURSA LARGE JOINT Right Hip Right 09/01/2023 Performed by Pj Gannon MD at [facility] INJECTION SPINE TRANSFORAMINAL Right L 5,1 Nroot Right 05/26/2023 Performed by Pj Gannon MD at [facility] RELEASE DEQUERVAINS CONTRACTURE Right 10/17/2018 Performed by Dereck Bagley DO at [facility] THYROIDECTOMY, PARTIAL Allergies Allergen Reactions Penicillins [...] [facility] 09/12/23 1317 documented in this encounter [facility] 08-21-2023 History of Presen t illness Narrative [facility] [address] [place] [address] Patient: Stacey Sahu Sex: female : 1975 Age: 48 y.o. PCP: ESSIE RYAN, COMMERCIAL AGENT-YARD ASSISTANT 08/21/2023 Stacey Sahu is here for a(n) [...] patches min: NSAIDS, ice/heat, accupuncture, inj at [facility] Mod relief: Narcotics Sign: Steroid inj by Ortho) for the symptoms. The treatment provided moderate relief. The effect of pain on patient's ADLS: Moderate Impairment. Past Medical History: Diagnosis Date Arthritis Bipolar disorder ([facility]) Chronic pain disorder Crohn's colitis ([facility]) Depression GERD (gastroesophageal reflux disease) H/O methicillin resistant Staphylococcus aureus infection Hyperlipidemia Joint pain Pleurisy Pulmonary hypertension ([facility]) Pulmonary hypertension ([facility]) Sleep apnea cpap Past Surgical History: Procedure Laterality Date COLON SURGERY part of bowel removed d/t crohns dx HYSTERECTOMY 2017 INJECTION SPINE TRANSFORAMINAL Right L 5,1 Nroot Right 05/26/2023 Performed by Pj Gannon MD at [facility] RELEASE DEQUERVAINS CONTRACTURE Right 10/17/2018 Performed by Dereck Bagley DO at [facility] THYROIDECTOMY, PARTIAL Allergies Allergen Reactions Penicillins [...] [place] 08/21/23 0908 documented in this encounter [facility] 08-21-2023 Instructions Essie Dutton CNA - 08/21/2023 [...] back to normal. documented in this encounter [employer] 07-11-2023 Evaluation note Encounter Date Diagnosis Assessment [...] treatment plan. Patient left in stable condition 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 Other 01-03-2024 History of Present illness Narrative* Evans Anderson PA-C - 06/28/2023 10:45 AM EST [facility] [address] [place] [address] Patient: Stacey Sahu Sex: female : 1975 Age: 48 y.o. PCP: ESSIE RYAN, LAY-YARD ASSISTANT 06/28/2023 Stacey Sahu is here for a(n) [...] min: NSAIDS, ice /heat, accupuncture, inj at [facility] Mod relief: Narcotics Sign: Steroid inj by Ortho) for the symptoms. The treatment provided moderate relief. The effect of pain on patient's ADLS: Minimal Impairment. Past Medical History: Diagnosis Date Arthritis Bipolar disorder ([facility] [facility]) Chronic pain disorder Crohn's colitis [place] Depression GERD (gastroesophageal reflux disease) H/O methicillin resistant Staphylococcus aureus infection Hyperlipidemia Joint pain Pleurisy Pulmonary hypertension ([facility]) Pulmonary hypertension ([facility] Sleep apnea cpap Past Surgical History: Procedure Laterality Date COLON SURGERY part of bowel removed d/t crohns dx HYSTERECTOMY 2017 INJECTION SPINE TRANSFORAMINAL Right L 5,1 Nroot Right 05/26/2023 Performed by Pj Gannon MD at [place] PAIN RELEASE DEQUERVAINS CONTRACTURE Right 10/17/2018 Performed by Dereck Bagley DO at [place] SURGERY THYROIDECTOMY, PARTIAL Allergies Allergen Reactions Penicillins [...] Anderson PA-C 06/28/23 1229 documented in [facility] encounterSt[facility] Hospital Discharge instructions Patient Education 05/29/2023 15:17:27 Kidney Stones, Nakx-nq-Elsh Kidney Stones Kidney stones are rock-like masses [...] Follow these instructions at home: Medicines Take fhym-muc-iovumck and prescription medicines only as told by [...] provider. Document Revised: 02/14/2022 Document Reviewed: 02/14/2022 [facility] ([facility]) Patient Education 2022 [employer]. Follow Up Care 11/08/2022 13:29:10 With:JOSE FELIX, Lynn Palafox, URL Address: [facility] [address], [place] [address] [phone] When: Unknown Comments:4 mos w/ metabolic w/u [facility] Jatinder 02-09-2023 NoteCONSULTATION CONSULTATION DATE: 08/04/2022 HISTORY [...] medications in three months, unless otherwise indicated.[facility] [id number] NotePROCEDURE: XR HIP RT 2 3V WO [...] authenticated by: PREET RODRIGEZ Date: 2022-07-07 15:33[facility] [id number] NoteCONSULTATION CONSULTATION DATE: 07/07/2022 HISTORY OF PRESENT [...] procedure, and she agrees to move forward.[facility] [id number] NoteCONSULTATION CONSULTATION DATE: 06/09/2022 HISTORY OF PRESENT [...] will re-evaluate with application of the diclofenac.[facility] 04-26-2022 Hospital Discharge instructions Patient Education [...] 06/12/2006 Document Revised: 03/01/2019 Document Reviewed: 05/12/2017 [facility] ([facility]) Patient Education 2020 [employer]. 04/26/2022 12:17:47 Hematuria, Adult Hematuria, Adult [...] Follow these instructions at home: Medicines Take ecuj-pcc-mgkaxws and prescription medicines only as told by [...] or the blood stops without treatment. Take nadw-fcp-jdpwqop and prescription medicines only as told by your health care provider. Drink enough fluid to keep your urine clear or pale yellow. This information is not intended to replace advice given to you by your health care provider. Make sure you discuss any questions you have with your health care provider. Document Released: 06/12/2006 Document Revised: 11/06/2019 Document Reviewed: 07/15/2017 [facility] ([facility]) Patient Education 2020 [employer]. Follow Up Care 04/22/2022 08:39:58 With:JOSE FELIX, Lynn Palafox, URL Address: [address] [place] [address] [place] [address] [phone] When:Within 6 Month(s) Comments:6 mo fu with KUB [facility] 10-04-2022 NoteCONSULTATION PROCEDURE DATE: 03/29/2022 PREOPERATIVE [...] Will be followed up in the office.[facility] [id number] NoteCONSULTATION CONSULTATION DATE: 03/22/2022 CHIEF COMPLAINT: Right [...] that. CC: Essie Ryan, [facility]09-13-2022 Hospital Discharge instructions Patient Education 03/08/2022 [...] Address: [facility] [address] [place] [address]- Business (1) When: Unknown Comments:Office will call to schedule follow up [facility]08-29-2022 History of Present illness Narrative* Shiraz Roy, DO - 02/21/2022 12:46 PM EDT Images from the original note were not included. [facility] Neurological [facility] - Medical Spine [...] Therapies PT at [facility] in [place] in June 2021 - 2 times per week for 1 month, exercises, TENS, ice - no relief Ice/heat Prior spine/MSK interventions: -12/31/21 Dr. Page: R GTB CSI - minimal relief for 1 day. 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 Subjective Patient ID: Stacey [...] x 4 Crohn's disease without complication (HCC) [id number] Pulmonary Htn (Hcc) Obese Nirmala (Obstructive Sleep [...] (primary encounter diagnosis) Plan: CONSULT TO [facility] (M51.27) Lumbago-sciatica due to displacement [...] 2022 TIME: 3:46 PM documented in [facility] encounterW[facility]07-08-2022 History of Present illness Narrative* Jorge Luis Page DO - 12/31/2021 12:54 PM EDT Associated Order(s): Large Joint Arthro/Inj: R greater trochanteric bursa Post-Procedure Diagnose(s): Trochanteric bursitis of right hip SERVICE DATE: December 31, 2021 PCP: Essie Ryan CNP, YARD ASSISTANT Patient was self-referred. Subjective Patient ID: Stacey [...] x 4 Crohn's disease without complication (HCC) [id number] Pulmonary Htn (Hcc) Obese Nirmala (Obstructive Sleep [...] trochanteric bursa Informed Consent Consent Obtained: Verbal Sarah Protocol A moment to CARE was completed. [...] 2021 TIME: 1:05 PM documented in this encounterW[facility]06-16-2022 Evaluation note* Encounter Date Diagnosis Assessment [...] refer her to Dr. Christian with the [facility]. 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 Other 05-25-2022 Evaluation note* Encounter Date Diagnosis [...] I will see her with those results. 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 Other 06-21-2021 History of Past illness Narrative* Problem Noted Date Resolved Date Generalized abdominal pain 12/14/202012/16 documented as of this encounter (statuses as of 12/31/2021) [facility] History of Past illness Narrative* Problem Noted Date Resolved Date Generalized abdominal pain 12/14/202012/16 documented as of this encounter (statuses as of 01/17/2022) [facility] History of Past illness Narrative* Problem Noted Date Resolved Date Generalized abdominal pain 12/14/202012/16 documented as of this encounter (statuses as of 03/13/2022) [facility] Plan note No data available for this section [facility] Future Appointments Appointment Date:10/24/2022 11:30:00 AM Scheduled Provider:[facility] Office Visit [facility] Jose Angel Evaluation + Plan note Future Appointments Appointment Date:05/29/2023 02:30:00 PM Scheduled Provider:Lynn GARCIA [facility] Office Visit Future Scheduled Tests Laboratory* Calprotectin, Fecal 11/24/22 * CBC w/ Auto Diff 11/24/22 * Comprehensive Metabolic Panel 11/24/22 * C-Reactive Protein 11/24/22 Radiology* CT Abdomen/Pelvis w/contrast (enterography) 11/24/22 [facility] Evaluation + Plan note Future Appointments Appointment Date:05/29/2023 02:30:00 PM Scheduled Provider:Lynn GARCIA MD Location:[facility] Appointment Type:URO Office Visit Future Scheduled Tests Laboratory* Calprotectin, Fecal 11/24/22 * CBC w/ Auto Diff 11/24/22 * Comprehensive Metabolic Panel 11/24/22 * C-Reactive Protein 11/24/22 [facility] Future Appointments Appointment Date:02/02/2023 01:00:00 PM Scheduled Provider:Ignacia KHAN MD Location:[facility] Dig[facility]ive Health Appointment Type:[facility] Follow Up Appointment Date:05/29/2023 02:30:00 PM Scheduled Provider:Lynn GARCIA MD Location:[facility] Appointment Type:URO Office Visit Future Scheduled Tests Laboratory* Calprotectin, Fecal 11/24/22 [facility] Future Appointments Appointment Date:05/29/2023 02:30:00 PM Scheduled Provider:Lynn GARCIA MD Location:[facility] Appointment Type:URO Office Visit Diagnostic Tests Pending * Calprotectin, Fecal 02/02/23 [facility] Future Appointments Appointment Date:10/02/2023 03:00:00 PM Scheduled Provider:Lynn GARCIA MD Location:[facility] Appointment Type:URO Office Visit [facility] evaluation note* Diagnosis Trochanteric bursitis of right hip- Primary Enthesopathy of hip region documented in this encounter [facility] [employer] 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 documented [facility] this encounter [facility]* Diagnosis Tendinopathy of right gluteal region- Primary Trochanteric bursitis of right hip Enthesopathy of hip region Chronic bilateral low back pain without sciatica Lumbar spondylosis Lumbosacral spondylosis without myelopathy documented in this encounter [facility]* Diagnosis Exhausted vascular access Other specified [...] region and thigh documented in this encounter [facility]* Diagnosis Exhausted vascular access Other specified [...] region and thigh documented in this encounter [facility]* Diagnosis Acute otitis media, unspecified otitis [...] of right median nerve Bipolar disorder, unspecified ([facility]) Bipolar disorder, unspecified Bipolar disorder, unspecified ([facility])- Primary Bipolar disorder, unspecified Neuritis of right median nerve Neuritis of left median nerve Morbid (severe) obesity due to excess calories ([facility]) Body mass index (BMI) 38.0-38.9, adult Anxiety Anxiety state, unspecified PAH (pulmonary artery hypertension) ([facility]) Other chronic pulmonary heart diseases Chronic rhinitis Gastroesophageal reflux disease, unspecified whether esophagitis present Needs flu shot Need for prophylactic vaccination and inoculation against influenza [facility] Diagnosis Exhausted vascular access Other [...] by other means documented in this encounter [facility]* Diagnosis Exhausted vascular access Other [...] region and thigh documented in this encounter [facility]* Diagnosis Acute otitis media, unspecified [...] soft tissues of limb Bipolar disorder, unspecified ([facility])- Primary Bipolar disorder, unspecified Morbid (severe) obesity due to excess calories ([facility]) Gastro-esophageal reflux disease without esophagitis Body mass index (BMI) 38.0-38.9, adult Pulmonary hypertension, unspecified ([facility]) Crohn's disease of both small and large intestine without complications ([facility]) Chronic right hip pain Bipolar disorder, current episode mixed, moderate ([facility])- Primary Chronic rhinitis Gastroesophageal reflux disease, unspecified whether esophagitis present BMI 38.0-38.9,adult Neuritis of left median nerve Neuritis of right median nerve Bipolar disorder, unspecified ([facility]) Bipolar disorder, unspecified Bipolar disorder, unspecified ([facility])- Primary Bipolar disorder, unspecified Neuritis of right median nerve Neuritis of left median nerve Morbid (severe) obesity due to excess calories ([facility]) Body mass index (BMI) 38.0-38.9, adult Anxiety Anxiety state, unspecified PAH (pulmonary artery hypertension) ([facility]) Other chronic pulmonary heart diseases Chronic rhinitis Gastroesophageal reflux disease, unspecified whether esophagitis present Needs flu shot Need for prophylactic vaccination and inoculation against influenza Bipolar 1 disorder ([facility])- Primary NIRMALA (obstructive sleep apnea) Obstructive sleep apnea (adult) (pediatric) PAH (pulmonary artery hypertension) ([facility]) Other chronic pulmonary heart diseases Chronic right hip pain Morbid (severe) obesity due to excess calories ([facility]) Anxiety Anxiety state, unspecified Chronic rhinitis [...] non-compliant with CPAP documented in this encounter [facility]* Diagnosis Bipolar disorder, current episode mixed, moderate ([facility])- Primary Chronic rhinitis Gastroesophageal reflux disease, unspecified whether esophagitis present BMI 38.0-38.9,adult Neuritis of left median nerve Neuritis of right median nerve Bipolar disorder, unspecified ([facility]) Bipolar disorder, unspecified documented in this encounter [facility]* Diagnosis Bipolar disorder, current episode mixed, moderate ([facility])- Primary Chronic rhinitis Gastroesophageal reflux disease, unspecified whether esophagitis present BMI 38.0-38.9,adult Neuritis of left median nerve Neuritis of right median nerve Bipolar disorder, unspecified ([facility]) Bipolar disorder, unspecified documented in this encounter [facility] HealthcareEvaluation note* Diagnosis Exhausted vascular access [...] right hip- Primary documented in this encounter [facility]* Diagnosis Exhausted vascular access Other specified [...] by other means documented [facility] this [facility]* Diagnosis Lumbar radiculopathy- Primary Thoracic or lumbosacral neuritis or radiculitis, unspecified [facility]* Diagnosis Chronic right hip pain documented in this encounter [facility]* Diagnosis Chronic right hip pain- Primary Lumbar neuritis Chronic right hip pain- Primary Chronic right hip pain documented in this encounter [facility]* Diagnosis Chronic right hip pain- Primary documented in this encounter [facility]* Diagnosis NIRMALA (obstructive sleep apnea)- Primary Obstructive sleep apnea (adult) (pediatric) Obstructive sleep apnea- Primary Obstructive sleep apnea (adult) (pediatric) Obstructive sleep apnea Obstructive sleep apnea (adult) (pediatric) documented in this encounter [facility]* Diagnosis NIRMALA (obstructive sleep apnea)- Primary Obstructive sleep apnea (adult) (pediatric) Obstructive sleep apnea Obstructive sleep apnea (adult) (pediatric) Obstructive sleep apnea- Primary Obstructive sleep apnea (adult) (pediatric) Obstructive sleep apnea Obstructive sleep apnea (adult) (pediatric) NIRMALA (obstructive sleep apnea) Obstructive sleep apnea (adult) (pediatric) documented in this encounter [facility]* Diagnosis Acute otitis media, unspecified [...] (CMS/HCC) Bipolar disorder, unspecified Bipolar disorder, unspecified ([facility] Primary Bipolar disorder, unspecified Neuritis of right median nerve Neuritis of left median nerve Morbid (severe) obesity due to excess calories ([facility]) Body mass index (BMI) 38.0-38.9, adult Anxiety Anxiety state, unspecified PAH (pulmonary artery hypertension) ([facility]) Other chronic pulmonary heart diseases Chronic rhinitis Gastroesophageal reflux disease, unspecified whether esophagitis present Needs flu shot Need for prophylactic vaccination and inoculation against influenza Bipolar 1 disorder ([facility])- Primary NIRMALA (obstructive sleep apnea) Obstructive sleep apnea (adult) (pediatric) PAH (pulmonary artery hypertension) ([facility]) Other chronic pulmonary heart diseases Chronic right hip pain Morbid (severe) obesity due to excess calories ([facility]) Anxiety Anxiety state, unspecified Chronic rhinitis Body mass index (BMI) 38.0-38.9, adult Anxiety- Primary Anxiety state, unspecified Morbid (severe) obesity due to excess calories ([facility]) Mixed hyperlipidemia ([facility]) Mixed hyperlipidemia Body mass index (BMI) 38.0-38.9, adult Bipolar disorder, unspecified ([facility]) Bipolar disorder, unspecified Pulmonary hypertension, unspecified ([facility]) Crohn's disease of both small and large intestine without complications ([facility]) NIRMALA (obstructive sleep apnea) Obstructive sleep apnea (adult) (pediatric) PAH (pulmonary artery hypertension) ([facility]) Other chronic pulmonary heart diseases Gastro-esophageal reflux disease without esophagitis S/P total right hip arthroplasty Encounter for screening mammogram for malignant neoplasm of breast Gastroesophageal reflux disease, unspecified whether esophagitis present Dizziness and giddiness documented in this encounter [facility]* Diagnosis Obstructive sleep apnea- Primary Obstructive sleep apnea (adult) (pediatric) documented in this encounter [facility]* Diagnosis Acute otitis media, unspecified [...] soft tissues of limb Bipolar disorder, unspecified ([facility])- Primary Bipolar disorder, unspecified Morbid (severe) obesity due to excess calories ([facility]) Gastro-esophageal reflux disease without esophagitis Body mass index (BMI) 38.0-38.9, adult Pulmonary hypertension, unspecified ([facility]) Crohn's disease of both small and large intestine without complications ([facility]) Chronic right hip pain Bipolar disorder, current episode mixed, moderate ([facility])- Primary Chronic rhinitis Gastroesophageal reflux disease, unspecified whether esophagitis present BMI 38.0-38.9,adult Neuritis of left median nerve Neuritis of right median nerve Bipolar disorder, unspecified ([facility]) Bipolar disorder, unspecified Bipolar disorder, unspecified ([facility])- Primary Bipolar disorder, unspecified Neuritis of right median nerve Neuritis of left median nerve Morbid (severe) obesity due to excess calories ([facility]) Body mass index (BMI) 38.0-38.9, adult Anxiety Anxiety state, unspecified PAH (pulmonary artery hypertension) ([facility]) Other chronic pulmonary heart diseases Chronic rhinitis Gastroesophageal reflux disease, unspecified whether esophagitis present Needs flu shot Need for prophylactic vaccination and inoculation against influenza Bipolar 1 disorder ([facility])- Primary NIRMALA (obstructive sleep apnea) Obstructive sleep apnea (adult) (pediatric) PAH (pulmonary artery hypertension) ([facility]) Other chronic pulmonary heart diseases Chronic right hip pain Morbid (severe) obesity due to excess calories ([facility]) Anxiety Anxiety state, unspecified Chronic rhinitis Body mass index (BMI) 38.0-38.9, adult Anxiety- Primary Anxiety state, unspecified Morbid (severe) obesity due to excess calories ([facility]) Mixed hyperlipidemia ([facility]) Mixed hyperlipidemia Body mass index (BMI) 38.0-38.9, adult Bipolar disorder, unspecified ([facility]) Bipolar disorder, unspecified Pulmonary hypertension, unspecified ([facility]) Crohn's disease of both small and large intestine without complications ([facility]) NIRMALA (obstructive sleep apnea) Obstructive sleep apnea (adult) (pediatric) PAH (pulmonary artery hypertension) ([facility]) Other chronic pulmonary heart diseases Gastro-esophageal [...] region and thigh documented in this encounter [facility]* Diagnosis Acute otitis media, unspecified [...] Morbid (severe) obesity due to excess calories ([facility]) Gastro-esophageal reflux disease without esophagitis Body mass [...] Morbid (severe) obesity due to excess calories ([facility]) Anxiety Anxiety state, unspecified Chronic rhinitis Body mass index (BMI) 38.0-38.9, adult Anxiety- Primary Anxiety state, unspecified Morbid (severe) obesity due to excess calories ([facility]) Mixed hyperlipidemia Mixed hyperlipidemia Body mass [...] Morbid (severe) obesity due to excess calories ([facility]) Bipolar disorder, unspecified (HCC) Bipolar disorder, [...] Morbid (severe) obesity due to excess calories ([facility]) Bipolar 1 disorder (HCC) Anxiety Anxiety state, unspecified Elevated glucose level PAH (pulmonary artery hypertension) (HCC) Other chronic pulmonary heart diseases Bipolar disorder, unspecified (HCC) Bipolar disorder, unspecified Mixed hyperlipidemia Mixed hyperlipidemia Gastroesophageal reflux disease, unspecified whether esophagitis present documented in this encounter [facility]* Diagnosis Acute otitis media, unspecified [...] Morbid (severe) obesity due to excess calories ([facility]) Gastro-esophageal reflux disease without esophagitis Body mass index (BMI) 38.0-38.9, adult Pulmonary hypertension, unspecified (HCC) Crohn's disease of both small and large intestine without complications (HCC) Chronic right hip pain Bipolar disorder, current episode mixed, moderate ([facility])- Primary Chronic rhinitis Gastroesophageal reflux disease, unspecified whether esophagitis present BMI 38.0-38.9,adult Neuritis of left median nerve Neuritis of right median nerve Bipolar disorder, unspecified (HCC) Bipolar disorder, unspecified Bipolar disorder, unspecified (HCC)- Primary Bipolar disorder, unspecified Neuritis of right median nerve Neuritis of left median nerve Morbid (severe) obesity due to excess calories ([facility]) Body mass index (BMI) 38.0-38.9, adult Anxiety Anxiety state, unspecified PAH (pulmonary artery hypertension) ([facility]) Other chronic pulmonary heart diseases Chronic rhinitis Gastroesophageal reflux disease, unspecified whether esophagitis present Needs flu shot Need for prophylactic vaccination and inoculation against influenza Bipolar 1 disorder ([facility])- Primary NIRMALA (obstructive sleep apnea) Obstructive sleep apnea (adult) (pediatric) PAH (pulmonary artery hypertension) ([facility]) Other chronic pulmonary heart diseases Chronic right hip pain Morbid (severe) obesity due to excess calories ([facility]) Anxiety Anxiety state, unspecified Chronic rhinitis Body mass index (BMI) 38.0-38.9, adult Anxiety- Primary Anxiety state, unspecified Morbid (severe) obesity due to excess calories ([facility]) Mixed hyperlipidemia Mixed hyperlipidemia Body mass index (BMI) 38.0-38.9, adult Bipolar disorder, unspecified (HCC) Bipolar disorder, unspecified Pulmonary hypertension, unspecified (HCC) Crohn's disease of both small and large intestine without complications ([facility]) NIRMALA (obstructive sleep apnea) Obstructive sleep apnea (adult) (pediatric) PAH (pulmonary artery hypertension) ([facility]) Other chronic pulmonary heart diseases Gastro-esophageal reflux disease without esophagitis S/P total right hip arthroplasty Encounter for screening mammogram for malignant neoplasm of breast Gastroesophageal reflux disease, unspecified whether esophagitis present Dizziness and giddiness Dizziness and giddiness- Primary NIRMALA (obstructive sleep apnea) Obstructive sleep apnea (adult) (pediatric) Morbid (severe) obesity due to excess calories ([facility]) Bipolar disorder, unspecified ([facility]) Bipolar disorder, unspecified Mixed hyperlipidemia Mixed hyperlipidemia Anxiety Anxiety state, unspecified Chronic right hip pain Gastroesophageal reflux disease, unspecified whether esophagitis present Left hip pain Pain in joint, pelvic region and thigh Chronic right hip pain- Primary NIRMALA (obstructive sleep apnea) Obstructive sleep apnea (adult) (pediatric) Dizziness and giddiness Primary hypertension Unspecified essential hypertension Morbid (severe) obesity due to excess calories ([facility]) Bipolar 1 disorder (HCC) Anxiety Anxiety state, [...] Pulmonary hypertension acute Ju ly 2024 11:14am [facility] Work Phone: Evaluation note* Diagnosis Acute otitis [...] Morbid (severe) obesity due to excess calories ([facility]) Body mass index (BMI) 38.0-38.9, adult Anxiety Anxiety state, unspecified PAH (pulmonary artery hypertension) ([facility]) Other chronic pulmonary heart diseases Chronic rhinitis Gastroesophageal reflux disease, unspecified whether esophagitis present Needs flu shot Need for prophylactic vaccination and inoculation against influenza Bipolar 1 disorder ([facility])- Primary NIRMALA (obstructive sleep apnea) Obstructive sleep apnea (adult) (pediatric) PAH (pulmonary artery hypertension) ([facility]) Other chronic pulmonary heart diseases Chronic right hip pain Morbid (severe) obesity due to excess calories ([facility] Anxiety Anxiety state, unspecified Chronic rhinitis Body mass index (BMI) 38.0-38.9, adult Anxiety- Primary Anxiety state, unspecified Morbid (severe) obesity due to excess calories ([facility]) Mixed hyperlipidemia Mixed hyperlipidemia Body mass index (BMI) 38.0-38.9, adult Bipolar disorder, unspecified ([facility]) Bipolar disorder, unspecified Pulmonary hypertension, unspecified ([facility]) Crohn's disease of both small and large intestine without complications ([facility]) NIRMALA (obstructive sleep apnea) Obstructive sleep apnea (adult) (pediatric) PAH (pulmonary artery hypertension) ([facility]) Other chronic pulmonary heart diseases Gastro-esophageal reflux disease without esophagitis S/P total right hip arthroplasty Encounter for screening mammogram for malignant neoplasm of breast Gastroesophageal reflux disease, unspecified whether esophagitis present Dizziness and giddiness Dizziness and giddiness- Primary NIRMALA (obstructive sleep apnea) Obstructive sleep apnea (adult) (pediatric) Morbid (severe) obesity due to excess calories ([facility]) Bipolar disorder, unspecified ([facility]) Bipolar disorder, unspecified Mixed hyperlipidemia Mixed hyperlipidemia Anxiety Anxiety state, unspecified Chronic right hip pain Gastroesophageal reflux disease, unspecified whether esophagitis present Left hip pain Pain in joint, pelvic region and thigh Chronic right hip pain- Primary NIRMALA (obstructive sleep apnea) Obstructive sleep apnea (adult) (pediatric) Dizziness and giddiness Primary hypertension Unspecified essential hypertension Morbid (severe) obesity due to excess calories ([facility]) Bipolar 1 disorder ([facility]) Anxiety Anxiety state, unspecified Elevated glucose level PAH (pulmonary artery hypertension) ([facility]) Other chronic pulmonary heart diseases Bipolar disorder, unspecified ([facility]) Bipolar disorder, unspecified Mixed hyperlipidemia Mixed hyperlipidemia Gastroesophageal reflux disease, unspecified whether esophagitis present Chronic right hip pain- Primary S/P total right hip arthroplasty- Primary Chronic right hip pain documented in this encounter [facility] - Reported* Type Description Date Medical History acid reflux Surgical History biopsy of intestines Surgical History hysterectomy 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 Other Hospital Discharge instructions No data available for this section [facility] InstructionsNot on filedocumented in this encounter [facility]Not on filedocumented in this encounter [facility]Not on filedocumented in this encounter [facility]ructionsNot on filedocumented in this encounter [facility] SystemInstructionsNot on filedocumented in this encounter [facility] SystemProgress note No data available for this section [facility] Diagnostic Procedure Only (Routine) - Closed Specialty Diagnoses / Procedures Referred By Wan gamboa Referred To Contact XR IMAGING Diagnoses Pain in right hip Procedures XR HIP GENERAL 3V PELV/AP/LAT RIGHT RADEX HIP UNILATERAL WITH PELVIS 2-3 VIEWS Mayito Gifford PA-C [address] [place] [address] Xr Imaging [place] [address] Referral ID Status Reason Start Date Expiration Date V isits Requested Visits Authorized [id number] Closed Auto-Generate d Referral 03/15/2024 04/14/2025 1 1 [facility] for referral (narrative)* - Pending Review Specialty Diagnoses / Procedures Referred By Wan gamboa Referred To Contact Physical Therapy Diagnoses Status post right hip replacement Procedures CONSULT TO PHYSICAL THERAPY Lois Mckeon MD [address] [place], [place] [id number] Referral ID Status Reason Start Date Expiration Date V isits Requested Visits Authorized [id number] Pending Review 04/16/2024 07/15/2024 1 1 [facility] for referral (narrative)* Outpatient Procedure (Routine) - New Request Specialty Diagnoses / Procedures Referred By Contac t Referred To Contact [facility] Diagnoses Pre-op evaluation Procedures ECG COMPLETE ECG ROUTINE ECG W/LEAST 12 LDS W/I&R Negrita Tejeda, LAY.YARD ASSISTANT [address] [place] [address] [facility] [address] [place] [address] Referral ID Status Reason Start Date Expiration Date Visits Requested Visits Authorized [id number] New Request Auto-Generat ed Referral 4 06/05/2025 1 1 [facility] for referral (narrative)* Diagnostic Procedure Only (Routine) - Pending Review Specialty Diagnoses / Procedures Referred By Contac t Referred To Contact XR IMAGING Diagnoses Status post right hip replacement Procedures XR HIP GENERAL 3V PELV/AP/LAT RIGHT RADEX HIP UNILATERAL WITH PELVIS 2-3 VIEWS Mayito Gifford PA-C [address] [place] [address] [place] [address] Referral ID Status Reason Start Date Expiration Date Visits Requested Visits Authorized [id number] Pending Review Auto-Generat ed Referral 07/22/2024 08/21/2025 1 [facility] Consultation (Routine) - Pending Review Specialty Diagnoses / Procedures Referred By Contac t Referred To Contact Orthopedic Surgery Diagnoses Chronic right hip pain Imani Krueger APRN-YARD ASSISTANT [address] [place] [address] Bang Cuellar MD [address] [place] [address] Referral ID Status Reason Start Date Expiration Date Visits Requested Visits Authorized [id number] Pending Review Specialty Services Required 09/12/2023 09/11/2024 1 1 [facility]No reason for referral [facility] Work Phone: Reason for visit Narrative* Diagnostic Procedure Only (Routine) - Pending Review Specialty Diagnoses / Procedures Referred By Yuliyaac t Referred To Contact XR IMAGING Diagnoses Status post right hip replacement Procedures XR HIP GENERAL 3V PELV/AP/LAT RIGHT RADEX HIP UNILATERAL WITH PELVIS 2-3 VIEWS Mayito Gifford PA-C [address] [place] [address] [place] [address] Referral ID Status Reason Start Date Expiration Date Visits Requested Visits Authorized [id number] Pending Review Auto-Generat ed Referral 07/22/2024 08/21/2025 1 1 [facility] Summary Purpose Family History No Family [...] Documents on File Type Date Recorded 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 Advance Directive(s) 12/12/2020 8:14 PM Documents on File Type Date Recorded 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 Advance Directive(s) 12/12/2020 8:14 PM Advance Directive Response Recorded Date/ Time Advance Directives No December 11 3:06pm Reason for Referral Specialty Diagnoses / Procedures Referred By Wan gamboa Referred To Contact Diagnoses Chronic right hip pain Procedures Case request operating room: INJECTION BURSA LARGE JOINT RIGHT Imani Krueger, LAY-YARD ASSISTANT [address] [place] [address] Referral ID Status Reason Start Date Expiration Date V isits Requested Visits Authorized [id number] Pending Review 08/21/2023 08/20/2024 1 1 Specialty Diagnoses / Procedures Referred By Wan gamboa Referred To Contact MR IMAGING Diagnoses Pain of right hip Procedures MRI HIP WO IVCON RIGHT MRI ANY JT LOWER EXTREM W/O CONTRAST Lois Le MD [address] [place] [address] Mr Imaging [place] [address] Referral ID Status Reason Start Date Expiration Date Visits Requested Visits Authorized [id number] New Request Auto-Generat ed Referral 03/19/2024 04/18/2025 1 1 Specialty Diagnoses / Procedures Referred By Contac t Referred To Contact Diagnoses Trochanteric bursitis of right hip Tendinopathy of right gluteal region Chronic bilateral low back pain without sciatica Lumbar spondylosis Procedures CONSULT TO CHIROPRACTOR OFFICE/OUTPATIENT [facility] 60-74 MINUTES Shiraz Roy DO [address] [place] [address] Referral ID Status Reason Start Date Expiration Date Visits Requested Visits Authorized [id number] Pending Review PCP Requested Referral 02/21/2022 02/21/2023 1 1 Specialty Diagnoses / Procedures Referred By Contac t Referred To Contact Sports Medicine Diagnoses Trochanteric bursitis of right hip Tendinopathy of right gluteal region Procedures CONSULT TO SPORTS MEDICINE OFFICE/OUTPATIENT [facility] 60-74 MINUTES Shiraz Roy DO [address] [place] [address] Referral ID Status Reason Start Date Expiration Date Visits Requested Visits Authorized [id number] Authorized PCP Requested Referral 02/21/2022 02/21/2023 1 1 Specialty Diagnoses / Procedures Referred By Contac t Referred To Contact [facility] Diagnoses Trochanteric bursitis of right hip Lumbago-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 Procedures CONSULT TO [facility] OFFICE/OUTPATIENT [facility] 60-74 MINUTES Jorge Luis Page, [address] [address] Referral ID Status Reason Start Date Expiration Date Visits Requested Visits Authorized [id number] Authorized PCP Requested Referral 01/17/2022 01/17/2023 1 1 Reason evaluate and treat. Gluteal tendon tear vs greater trochanteric bursitis Please refer to aBng Christian MD, Orthopaedic Surgery, [facility] Diagnosis 1 Trochanteric bursiti s, right hip (M70.61) Referral Organization [facility] [place] [facility] Referring Provider First Name Alexis Referring Provider Last Name Dany ARDON Referring Provider Specialty Orthopedic Surgery Referred Organization [facility] Referred Address [address],[place],[address] Referred Provider Specialty ORTHOPEDIC S URGEON Referral [...] and content) DATE CREATED AUTHOR 12/19/2017 [facility] DATE CREATED AUTHOR AUTHOR'S ORGANIZ ATION 12/08/2021 [facility] DATE CREATED AUTHOR AUTHOR'S ORGANIZ ATION 12/04/2022 [facility] DATE CREATED AUTHOR AUTHOR'S ORGANIZ ATION 07/07/2024 [facility] DATE CREATED AUTHOR AUTHOR'S ORGANIZ ATION 08/01/2024 [facility] DATE CREATED AUTHOR AUTHOR'S ORGANIZ ATION 08/24/2024 [facility] DATE CREATED AUTHOR AUTHOR'S ORGANIZ ATION 09/08/2024 [facility] DATE CREATED AUTHOR AUTHOR'S ORGANIZ ATION 11/03/[address] [facility] DATE CREATED AUTHOR AUTHOR'S ORGANIZ ATION 12/21/2024 [facility] DATE CREATED AUTHOR AUTHOR'S ORGANIZ ATION 01/05/2025 [facility] DATE CREATED AUTHOR AUTHOR'S ORGANIZ ATION 02/08/2025 [facility] REASON FOR VISIT (unrecogniz ed section and content) Reason Comments New Specialty Diagnoses / Procedures Referred By Contac t Referred To Contact Orthopedics / ORTHOPAEDIC SURGERY Diagnoses Greater Trochanteric Bursitis right hip vs Gluteal Tendon tear *OUTSIDE IMG PT TO BRING Procedures LANA NEW NO XRAY Alexis Saenz II, MD [address] [place] [address] Jorge Luis Page, [facility] [address] [place] [address] Referral ID Status Reason Start Date Expiration Date Visits Requested Visits Authorized [id number] Authorized Financial Clearance Not Required 12/24/2021 01/23/2022 99 99 Reason Comments Follow Up Reason Comments New Patient Evaluation Lower back pain/R ight side sciatica Specialty Diagnoses / Procedures Referred By Contac t Referred To Contact [facility] Diagnoses Trochanteric bursitis of right hip Lumbago-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 Procedures CONSULT TO [facility] OFFICE/OUTPATIENT NEW HIGH MDM 60-74 MINUTES Jorge Luis Page, [facility] [address] [place] [address] Referral ID Status Reason Start Date Expiration Date V isits Requested Visits Authorized [id number] Closed PCP Requested Referral 01/17/2022 01/17/2023 1 1 Reason Comments New Surgical consult Reason Comments Radio Gen RMP Specialty Diagnoses / Procedures Referred By Contac t Referred To Contact XR IMAGING Diagnoses Pain in right hip Procedures XR HIP GENERAL 3V PELV/AP/LAT RIGHT RADEX HIP UNILATERAL WITH PELVIS 2-3 VIEWS Mayito Gifford PA-C [address] [place] [address] [place] [address] Referral ID Status Reason Start Date Expiration Date V isits Requested Visits Authorized [id number] Closed Auto-Generate d Referral 03/15/2024 04/14/2025 1 [...] Otolaryngology Diagnoses NIRMALA (obstructive sleep apnea) Procedures [place] OFFICE OUTPATIENT VISIT 60-74 MINS HIGH MDM AMB REFERRAL TO ENT Trinh Eduardo MD [address] [place] [phone] Phone: tel: fax: Jeff Rossi MD [address] [place] [address] [address] [place] [address] Phone: tel: fax: Referral ID Status Reason Start Date Expiration Date V isits Requested Visits Authorized [id number] Pending Review 03/08/2024 03/08/2025 1 1 Reason [...] or prosecute any alcohol or drug abuse patient.[facility] the event this information is protected by the Federal Confidentiality of Alcohol and Drug Abuse Patient Records regulations: The Federal rules restrict any use of the information to criminally investigate or prosecute any alcohol or drug abuse patient.[facility] the event this information is protected by the Federal Confidentiality of Alcohol and Drug Abuse Patient Records regulations: The Federal rules restrict any use of the information to criminally investigate or prosecute any alcohol or drug abuse patient.[facility] the event this information is protected by the Federal Confidentiality of Alcohol and Drug Abuse Patient Records regulations: The Federal rules restrict any use of the information to criminally investigate or prosecute any alcohol or drug abuse patient.[facility] Hospital[facility] the event this information is protected by the Federal Confidentiality of Alcohol and Drug Abuse Patient Records regulations: The Federal rules restrict any use of the information to criminally investigate or prosecute any alcohol or drug abuse patient.[facility] HospitalIn the event this information is protected by the Federal Confidentiality of Alcohol and Drug Abuse Patient Records regulations: The Federal rules restrict any use of the information to criminally investigate or prosecute any alcohol or drug abuse patient.[facility] HospitalIn the event this information is protected by the Federal Confidentiality of Alcohol and Drug Abuse Patient Records regulations: The Federal rules restrict any use of the information to criminally investigate or prosecute any alcohol or drug abuse patient.[facility] HospitalIn the event this information is protected by the Federal Confidentiality of Alcohol and Drug Abuse Patient Records regulations: The Federal rules restrict any use of the information to criminally investigate or prosecute any alcohol or drug abuse patient.[facility] HospitalIn the event this information is protected by the Federal Confidentiality of Alcohol and Drug Abuse Patient Records regulations: The Federal rules restrict any use of the information to criminally investigate or prosecute any alcohol or drug abuse patient.[facility] HospitalIn the event this information is protected by the Federal Confidentiality of Alcohol and Drug Abuse Patient Records regulations: The Federal rules restrict any use of the information to criminally investigate or prosecute any alcohol or drug abuse patient.[facility] HospitalIn the event this information is protected by the Federal Confidentiality of Alcohol and Drug Abuse Patient Records regulations: The Federal rules restrict any use of the information to criminally investigate or prosecute any alcohol or drug abuse patient.[facility] HospitalIn the event this information is protected by the Federal Confidentiality of Alcohol and Drug Abuse Patient Records regulations: The Federal rules restrict any use of the information to criminally investigate or prosecute any alcohol or drug abuse patient.[facility] Care Teams (unrecognized sec tion and content) Safety Coordinator Relationship Specialty Start Date End Date Essie Ryan CNP PCP - General Family Practice 07/22/16 Adán Torres Obstetrics 07/22/16 Alexis Saenz II, MD [address] [place] [address] Referring Orthopedics 12/13/21 Safety Coordinator Relationship Specialty Start Date End Date [facility] PCP - General Family Practice 07/22/16 Adán Torres DO Obstetrics 07/22/16 Alexis Saenz II, MD [address] [place] [address] Referring Orthopedics 12/13/21 Safety Coordinator Relationship Specialty Start Date End Date CharliEssie neff [facility] PCP - General Family Practice 07/22/16 Adán Torres DO Obstetrics 07/22/16 Alexis Saenz II, MD [address] [place] [address] Referring Orthopedics 12/13/21 Safety Coordinator Relationship Specialty Start Date End Date CharliEsise neff, YARD ASSISTANT PCP - General Family Medicine 07/22/16 Adán Torres DO Obstetrics 07/22/16 Alexis Saenz II, MD [address] [place] [address] Referring Orthopedics 12/13/21 Angel Delgado DO [address] [place] [address] Referring Orthopedics 03/08/24 Safety Coordinator Relationship Specialty Start Date End Date Essie Ryan CNP PCP - General Family Medicine 07/22/16 Adán Torres DO Obstetrics 07/22/16 Alexis Saenz II, MD [address] [place] [address] Referring Orthopedics 12/13/21 Angel Delgado DO [address] [place] [address] Referring Orthopedics 03/08/24 Safety Coordinator Relationship Specialty Start Date End Date Essie Ryan YARD ASSISTANT PCP - General Family Medicine 07/22/16 Adán Torres DO Obstetrics 07/22/16 Alexis Saenz II, MD [address] [place] [address] Referring Orthopedics 12/13/21 Angel Delgado DO [address] [place] [address] Referring Orthopedics 03/08/24 Safety Coordinator Relationship Specialty Start Date End Date Yuriy Martins MD [place] [address] PCP - General Family Medicine 08/17/23 Essie Ryan NP [address] [place] [phone] PCP - [facility] 12/25/23 Essie Ryan NP [address] [place] [phone] Nurse Practitioner Family Medicine 08/17/23 Safety Coordinator Relationship Specialty Start Date End Date Yuriy Martins MD [address] [place] [phone] PCP - General Family Medicine 08/17/23 Essie Ryan NP [address] [place] [phone] PCP - [facility] 12/25/23 Essie Ryan NP [address] [place] [phone] Nurse Practitioner Family Medicine 08/17/23 Safety Coordinator Relationship Specialty Start Date End Date Essie Ryan CNP PCP - General Family Medicine 07/22/16 dAán Torres DO Obstetrics 07/22/16 Alexis Saenz II, MD [address] [place] [address] Referring Orthopedics 12/13/21 Angel Delgado DO [address] [place] [address] Referring Orthopedics 03/08/24 Safety Coordinator Relationship Specialty Start Date End Date Essie Ryan CNP PCP - General Family Medicine 07/22/16 Adán Torres DO Obstetrics 07/22/16 Alexis Saenz II, MD [address] [place] [address] Referring Orthopedics 12/13/21 Angel Delgado DO [address] [place] [address] Referring Orthopedics 03/08/24 Safety Coordinator Relationship Specialty Start Date End Date Essie Ryan NP [address] [place] [address] PCP - [facility] 12/25/23 Yuriy Martins MD [address] [place] [address] PCP - General Family Medicine 05/29/24 Essie Rayn NP [address] [place] [address] Nurse Practitioner Family Medicine 08/17/23 Safety Coordinator Relationship Specialty Start Date End Date Essie Ryan NP [address] [place] [address] PCP - [facility] 12/25/23 Yuriy Martins MD [address] [place] [address] PCP - General Family Medicine 05/29/24 Essie Ryan NP [address] [place] [address] Nurse Practitioner Family Medicine 08/17/23 Safety Coordinator Relationship Specialty Start Date End Date Essie Ryan YARD ASSISTANT PCP - General Family Medicine 07/22/16 Adán Torres DO Obstetrics 07/22/16 Alexis Saenz II, MD [address] [place] [address] Referring Orthopedics 12/13/21 Angel Delgado DO [address] [place] [address] Referring Orthopedics 03/08/24 Safety Coordinator Relationship Specialty Start Date End Date Essie Ryan YARD ASSISTANT PCP - General Family Medicine 07/22/16 Adán Torres DO Obstetrics 07/22/16 Alexis Saenz II, MD [address] [place] [address] Referring Orthopedics 12/13/21 Angel Delgado DO [address] [place], [place] [id number] Referring Orthopedics 03/08/24 Safety Coordinator Relationship Specialty Start Date End Date Essie Ryan NP [address] [place] [address] PCP - [facility] 12/25/23 Yuriy Martins MD [address] [place] [address] PCP - General Family Medicine 05/29/24 Essie Ryan NP [address] [place] [address] Nurse Practitioner Family Medicine 08/17/23 Safety Coordinator Relationship Specialty Start Date End Date Essie Ryan NP [address] [place] [address] PCP - [facility] 12/25/23 Yuriy Martins MD [address] [place] [address] PCP - General Family Medicine 05/29/24 Essie Ryan NP [address] [place] [address] Nurse Practitioner Family Medicine 08/17/23 Safety Coordinator Relationship Specialty Start Date End Date Yuriy Martins MD [address] [place] [address] PCP - General Family Medicine 08/17/23 Essie Ryna NP [address] [place] [address] PCP - [facility] 12/25/23 Essie Ryan NP [address] [place] [address] Nurse Practitioner Family Medicine 08/17/23 Safety Coordinator Relationship Specialty Start Date End Date Yuriy Martins MD [address] [place] [address] PCP - General Family Medicine 08/17/23 Essie Ryan NP [address] [place] [address] PCP - [facility] 12/25/23 Essie Ryan NP [address] [place] [address] Nurse Practitioner Family Medicine 08/17/23 Safety Coordinator Relationship Specialty Start Date End Date Yuriy Martins MD [address] [place] [address] PCP - General Family Medicine 08/17/23 Essie Ryan NP [address] [place] [address] PCP - [facility] 12/25/23 Essie Ryan NP [address] [place] [address] Nurse Practitioner Family Medicine 08/17/23 Safety Coordinator Relationship Specialty Start Date End Date Yuriy Martins MD [address] [place] [address] PCP - General Family Medicine 08/17/23 Essie Ryan NP [address] [place] [address] PCP - [facility] 12/25/23 Essie Ryan NP [address] [place] [address] Nurse Practitioner Family Medicine 08/17/23 Safety Coordinator Relationship Specialty Start Date End Date Essie Ryan, COMMERCIAL AGENT-YARD ASSISTANT PCP - General Nurse Practitioner 10/03/18 Safety Coordinator Relationship Specialty Start Date End Date Essie Ryan, COMMERCIAL AGENT-YARD ASSISTANT PCP - General Nurse Practitioner 10/03/18 Safety Coordinator Relationship Specialty Start Date End Date Essie Ryan NP [address] [place] [address] PCP - [facility] 12/25/23 Yuriy Martins MD [address] [place] [address] PCP - General Family Medicine 05/29/24 Essie Ryan NP [address] [place] [address] Nurse Practitioner Family Medicine 08/17/23 Safety Coordinator Relationship Specialty Start Date End Date Essie Ryan CNP PCP - General Family Medicine 07/22/16 Adán Torres DO Obstetrics 07/22/16 Alexis Saenz II, MD [address] [place] [address] Referring Orthopedics 12/13/21 Angel Delgado DO [address] [place] [address] Referring Orthopedics 03/08/24 Safety Coordinator Relationship Specialty Start Date End Date Essie Ryan CNP PCP - General Family Medicine 07/22/16 Adán Torres DO Obstetrics 07/22/16 Alexis Saenz II, MD [address] [place] [address] Referring Orthopedics 12/13/21 Angel Delgado DO [address] [place] [address] Referring Orthopedics 03/08/24 Safety Coordinator Relationship Specialty Start Date End Date Essie Ryan APRN-YARD ASSISTANT [address] [place] [address] PCP - General Nurse Practitioner 10/03/18 Safety Coordinator Relationship Specialty Start Date End Date Essie Ryan APRN-YARD ASSISTANT [address] [place] [address] PCP - General Nurse Practitioner 10/03/18 Safety Coordinator Relationship Specialty Start Date End Date Essie Ryan [facility] [address] [place] [address] PCP - General Nurse Practitioner 10/03/18 Safety Coordinator Relationship Specialty Start Date End Date Essie Ryan [facility] [address] [place] [address] PCP - General Nurse Practitioner 10/03/18 Safety Coordinator Relationship Specialty Start Date End Date Essie Ryan [facility] [address] [place] [address] PCP - General Nurse Practitioner 10/03/18 Safety Coordinator Relationship Specialty Start Date End Date Essie Ryan [facility] PCP - General Nurse Practitioner 10/03/18 Safety Coordinator Relationship Specialty Start Date End Date Essie Ryan [facility] PCP - General Nurse Practitioner 10/03/18 Safety Coordinator Relationship Specialty Start Date End Date Essie Ryan [facility] PCP - General Nurse Practitioner 10/03/18 Safety Coordinator Relationship Specialty Start Date End Date Essie Ryan [facility] PCP - General Nurse Practitioner 10/03/18 Safety Coordinator Relationship Specialty Start Date End Date Essie Ryan NP [address] [place] [address] PCP - [facility] 12/25/23 Yuriy Martins MD [address] [place] [address] PCP - General Family Medicine 05/29/24 Essie Ryan NP [address] [place] [address] Nurse Practitioner Family Medicine 08/17/23 Safety Coordinator Relationship Specialty Start Date End Date Essie Ryan NP [address] [place] [address] PCP - [facility] 12/25/23 Yuriy Martins MD [address] [place] [address] PCP - General Family Medicine 05/29/24 Essie Ryan NP [address] [place] [address] Nurse Practitioner Family Medicine 08/17/23 Safety Coordinator Relationship Specialty Start Date End Date Essie Ryan NP [address] [place] [address] PCP - [facility] 12/25/23 Yuriy Martins MD [address] [place] [address] PCP - General Family Medicine 05/29/24 Essie Ryan NP [address] [place] [address] Nurse Practitioner Family Medicine 08/17/23 Safety Coordinator Relationship Specialty Start Date End Date Essie Ryan, COMMERCIAL AGENT-YARD ASSISTANT PCP - General Nurse Practitioner 10/03/18 Safety Coordinator Relationship Specialty Start Date End Date Essie Ryan NP [address] [place] [address] PCP - [facility] 12/25/23 Yuriy Martins MD [address] [place] [address] PCP - General Family Medicine 05/29/24 Essie Ryan NP [address] [place] [address] Nurse Practitioner Family Medicine 08/17/23 Safety Coordinator Relationship Specialty Start Date End Date Essie Ryan NP [address] [place] [address] PCP - [facility] 12/25/23 Yuriy Martins MD [address] [place] [address] PCP - General Family Medicine 05/29/24 Essie Ryan NP [address] [place] [address] Nurse Practitioner Family Medicine 08/17/23 Safety Coordinator Relationship Specialty Start Date End Date Essie Ryan NP [address] [place] [address] PCP - [facility] 12/25/23 Yuriy Martins MD [address] [place] [address] PCP - General Family Medicine 05/29/24 Essie Ryan NP [address] [place] [address] Nurse Practitioner Family Medicine 08/17/23 Safety Coordinator Relationship Specialty Start Date End Date Essie Ryan NP [address] [place] [address] PCP - [facility] 12/25/23 Yuriy Martins MD [address] [place] [address] PCP - General Family Medicine 05/29/24 Essie Ryan NP [address] [place] [address] Nurse Practitioner Family Medicine 08/17/23 Safety Coordinator Relationship Specialty Start Date End Date Essie Ryan NP [address] [place] [address] PCP - [facility] 12/25/23 Yuriy Martins MD [address] [place] [address] PCP - General Family Medicine 05/29/24 Essie Ryan NP [address] [place] [address] Nurse Practitioner Family Medicine 08/17/23 Safety Coordinator Relationship Specialty Start Date End Date Essie Ryan COMMERCIAL AGENT-YARD ASSISTANT PCP - General Nurse Practitioner 10/03/18 Safety Coordinator Relationship Specialty Start Date End Date Essie Ryan NP [address] [place] [address] PCP - [facility] 12/25/23 Yuriy Martins MD [address] [place] [address] PCP - General Family Medicine 05/29/24 Essie Ryan NP [address] [place] [address] Nurse Practitioner Family Medicine 08/17/23 Safety Coordinator Relationship Specialty Start Date End Date Essie Ryan NP [address] [place] [address] PCP - [facility] 12/25/23 Yuriy Martins MD [address] [place] [address] PCP - General Family Medicine 05/29/24 Essie Ryan NP [address] [place] [address] Nurse Practitioner Family Medicine 08/17/23 Safety Coordinator Relationship Specialty Start Date End Date Essie Ryan NP [address] [place] [address] PCP - [facility] 12/25/23 Yuriy Martins MD [address] [place] [address] PCP - General Family Medicine 05/29/24 Essie Ryan NP [address] [place] [address] Nurse Practitioner Family Medicine 08/17/23 Safety Coordinator Relationship Specialty Start Date End Date Essie Ryan NP [address] [place] [address] PCP - [facility] 12/25/23 Yuriy Martins MD [address] [place] [address] PCP - General Family Medicine 05/29/24 Essie Ryan NP [address] [place] [address] Nurse Practitioner Family Medicine 08/17/23 Team Status: Active Member Role Status Dates Essie Ryan Primary Care Provider Active Team Status: Inactive Member Role Status Dates Paulette Warren MD Attending Provider Active S tart: January 15, 2025 End: January 15, 2025 Essie Ryan Primary Care Provider Active Sta rt: January 15, 2025 End: January 15, 2025 Safety Coordinator Relationship Specialty Start Date End Date Essie Ryan NP [address] [place] [address] PCP - [facility] 12/25/23 Yuriy Martins MD [address] [place] [address] PCP - General Family Medicine 05/29/24 Essie Ryan NP [address] [place] [address] Nurse Practitioner Family Medicine 08/17/23 Safety Coordinator Relationship Specialty Start Date End Date Essie Ryan NP [address] [place] [address] PCP - [facility] 12/25/23 Yuriy Martins MD [address] [place] [address] PCP - General Family Medicine 05/29/24 Essie Ryan NP [address] [place] [address] Nurse Practitioner Family Medicine 08/17/23 Goals (unrecognized [...] BE BASED ON THE PRIMARY CLINICAL RECORDS. [facility] [employer] [facility] provides no warranty or guarantee of the accuracy or completeness of information in this document.
[2025-02-13 11:46] LABS: Blood Urea Nitrogen 14.0 mg/dL (7.0-18.0); Calcium 9.0 mg/dL (8.5-10.1); Carbon Dioxide 29.8 mmol/L (21.0-32.0); Chloride 107 mmol/L (98-107); Estimated GFR (African America >60 (>=60 mL/min/1.73m^2); Estimated GFR (Non-African Ame >60 (>=60 mL/min/1.73m^2); Sodium 141 mmol/L (136-145); Uric Acid 3.9 mg/dL (2.6-6.0)
[2025-02-13 14:15] LABS: Calcium 24 Hour Urine 271.7 mg/24hr (100.0-300.0); Creatinine 24 Hour Urine 1411.28 mg/24 hr (800.00-1800.00); Total Volume 24 Hour Urine 1300 mL/24hr
[2025-02-14 04:08] LABS: Uric Acid, Urine 42.3 mg/dL (Not Estab.); Uric Acid,Urine 24hr 549.9 mg/24 hr (173.7-902.1)
[2025-02-14 13:09] LABS: Magnesium, U 7.1 mg/dL (Not Estab.); Magnesium,Urine 24hr 92.3 mg/24 hr (12.0-293.0); Phosphorus, Urine 73.1 mg/dL (Not Estab.); Phosphorus,Urine 24h 950 mg/24 hr (261-1078)
[2025-02-14 15:07] LABS: BOX Test Reference Lab CLEVELAND CLINIC; BOX Test Sent Out 24HR URINE OXALATE
[2025-02-14 15:08] LABS: BOX Test Date Sent 8/21/25
[2025-02-14 16:45] LABS: BOX Test Result 8/22/25
[2025-02-18 07:07] LABS: Citric Acid, U, 24hr 770 mg/24 hr (320-1240); Citric Acid, Urine 592 mg/L (Undefined)
== END 2025-02-13 10:39 | disposition home or self-care (01) ==
LOC: LAB 10:39
PROVIDERS: PCP Nurse Practitioner; Visit Provider Urology
DX: N20.0 Calculus of kidney (principal)
CPT/HCPCS: 36415; 82310; 82340; 82374; 82435; 82507; 82565; 82570; 83735; 83945; 83970; 84100; 84105; 84295; 84300; 84520; 84550; 84560

== ENCOUNTER 2025-04-17 08:19 | Outpatient (OUT) | payer OTHER, SELFPAY ==
--- OUTSIDE RECORDS SUMMARY | 2025-04-17 08:24 | XMS_ITS | Clinical Summary ---
Author Organization [facility] Address [address] [place] [address] Care Team Providers Care Neurology Teacher Name Role Phone Shelby Essie PROGRAMMER ANALYST Unavailable [phone] Mckenna Bishop MD Primary Care Provider [phone] Fariba Dudley PROGRAMMER ANALYST Unavailable [phone] Allergies Active AllergyReactionsCriticalityNoted DateCommentsPenicillinsOther,Unknown Jazbig4506/13/2014 As a child Medications MedicationSigDispense QuantityRefillsLast FilledStart DateEnd DateStatus dilTIAZem CD (Cardizem CD) 120 MG 24 hr capsule Take 120 mg by mouth in the morning.ctive meloxicam (Mobic) 15 MG tablet Take 15 mg by mouth Daily5Active ARIPiprazole (Abilify) 15 MG tablet Indications:Bipolar disorder, unspecified (HCC)Take 1 tablet (15 mg) by mouth Daily 30 tablet 5Active atorvastatin (Lipitor) 80 MG tablet Indications:Mixed hyperlipidemiaTake 1 tablet (80 mg) by mouth in the evening 30 tablet 5Active busPIRone (Buspar) 15 MG tablet Indications:AnxietyTake 0.5 tablets (7.5 mg) by mouth in the morning and 0.5 tablets (7.5 mg) before bedtime. 60 tablet 5Active losartan (Cozaar) 100 MG tablet Indications:Primary hypertensionTake 1 tablet (100 mg) by mouth in the morning. 30 tablet 6Active omeprazole (PriLOSEC) [address] capsule Indications:Gastroesophageal reflux disease, unspecified whether esophagitis presentTake 1 capsule (40 mg) by mouth in the morning. Take before meals. 30 capsule 505Active hydrocortisone 1 % cream Indications:Rash and nonspecific skin eruptionApply topically in the morning and before bedtime. 28 g 5Active cyclobenzaprine (Flexeril) 10 MG tablet Indications:Acute pain of left shoulderTake 0.5 tablets (5 mg) by mouth 3 (three) times a day as needed for muscle spasms for up to 5 days 8 tablet 5Active Active Problems ProblemNoted DateDiagnosed LtksTpdinqnwcrwbx54/01/2025Degeneration of intervertebral disc of lumbosacral vrebnx5603/26/20250214Qpctcrxuuhrg38/22/2025Primary lckfoiebviwy92/09/2025 Assessment & Plan (03/10/2025 12:54 PM EDT): Stable on Losartan Assessment & Plan (01/01/2025 6:39 AM EDT): Please check blood pressure daily and record DASH diet Limit caffeine Take medication as directed Contact office if chest pain, pressure, dizziness, shortness of breath, swelling legs Recommend slow position changes Current meds: losartan Elevated glucose level01/01/2025 Assessment & Plan (01/01/2025 6:41 AM EDT): On 11/25/24 129 Check A1c: Left hip pain09/30/2024ipolar disorder, cqztdjbigof00/05/2025 Assessment & Plan (09/30/2024 1:46 PM EDT): Continue buspar and aripiprazole Assessment & Plan (08/28/2024 1:53 PM EST): Used to see psych, does not want to continue with them Current meds: raysa gant PHQ 9=9 FLOR 7=6 Dizziness and skqgjwuyu71/05/2025 Assessment & Plan (01/01/2025 1:23 PM EDT): Saw cardiology, has PVC and PAC's. Was placed on Cardizem, much improved Assessment & Plan (09/30/2024 1:44 PM EDT): Last appt was having sxs, ordered labs No acute findings on exam or labs At this point, I would recommend she discuss with Inspire device doctor S/P total right hip phhfwznxlvka93/06/2025 Assessment & Plan (08/28/2024 1:51 PM EST): 06/24/24 Normal post op discomfort Did at home PT Bipolar 1 enocbsop97/04/2024 Assessment & Plan (03/10/2025 12:54 PM EDT): Stable on Abilify 15mg daily. Does not want to see Psych. Assessment & Plan (01/01/2025 6:40 AM EDT): Is currently taking ability Does not want to see psych Assessment & Plan (05/29/2024 7:36 AM EST): Is currently taking ability Does not want to see psych Needs flu shot04/10/2024 Assessment & Plan (04/10/2024 8:59 AM EDT): Pt declined Neuritis of left median nerve02/29/2024 Assessment & Plan (04/10/2024 8:55 AM EDT): resolved Assessment & Plan (02/29/2024 9:12 AM EDT): Cont nsaid Trial cock up splint Recheck in 6 weeks Neuritis of right median nerve02/29/2024 Assessment & Plan (04/10/2024 8:55 AM EDT): resolved Assessment & Plan (02/29/2024 9:12 AM EDT): Continue NSAID, get a cock up splint Fu in 6 weeks Morbid (severe) obesity due to excess dzzalzwd65/06/2024 Assessment & Plan (03/10/2025 12:54 PM EDT): Work on healthy habits. Assessment & Plan (01/01/2025 6:39 AM EDT): [...] sodas, juices, and sugary drinks.. Contracture, left ankle01/30/2024Left foot pain11/08/2023 Assessment & Plan (11/08/2023 4:07 PM EDT): Left foot Pain, ongoing for 4 weeks. Persistent, worse towards the end of the day. No injury, no overlying skin changes. Tenderness along calcaneal bone. No improvement with prednisone, Mobic. Will get XR, and refer to Podiatry. Pain of left heel10/25/2023 Assessment & Plan (10/25/2023 10:04 AM EDT): [...] for XR. Body mass index (BMI) 38.0-38.9, adult09/28/2023Herpes zoster without zlmblnyitwpd88/04/2024 Assessment & Plan (09/28/2023 5:56 PM EDT): Off work, may RTW 10/04/23 Add antivirals and steroids If ANY eye symptoms occur go to ER She denies facial NT , she is able to smell and taste, she also does not have any acute pain Advised to stay away from those who are immune suppressed, and not vaccinated for varicella (has grandchildren) Jgfgdrrasnptnf87/18/2024 Assessment & Plan (03/10/2025 12:54 PM EDT): Stable on Atorvastatin Assessment & Plan (01/01/2025 6:40 AM EDT): On statin therapy Check labs yearly and prn dose changes Assessment & Plan (09/30/2024 7:08 AM EDT): On statin therapy Check labs yearly and prn dose changes Sensorineural hearing loss (SNHL), ievhgswqk50/13/2024Kidney ssgiju7008/29/2023 Chronic right hip pain08/21/2023 Assessment & Plan (03/10/2025 12:54 PM EDT): Follows with orthopedics. Assessment & Plan (01/09/2025 9:53 AM EDT): [...] EDT): Seeing ortho, considering a hip replacement Jkinzzv9007/25/2023 Assessment & Plan (03/10/2025 12:54 PM EDT): Stable on Buspar and Abilify. Assessment & Plan (01/01/2025 6:40 AM EDT): [...] Plan (04/10/2024 8:56 AM EDT): Prn buspar Generalized anxiety btkeiimi60/30/2024reast cancer iamnrbvhd33/18/2024Fluid level behind tympanic membrane of right ear07/13/2023 Assessment & Plan (07/13/2023 9:54 AM EST): Persistent over 6-8 weeks, will refer to ENT Timmis Chronic qzrzhkuk53/26/2023 Assessment & Plan (07/04/2023 3:50 PM EST): Is not compliant with nasal steroid Needs to use this Lumbar ukqmraewafaoh61/08/2023rthritis of right hip01/14/2023Multiple thyroid vsqbcig3301/14/2023Sensorineural hearing loss, mbdisyapu27/22/2023Thyromegaly 01/14/2023astro-esophageal reflux disease without gfmsyxlmxmj56/16/2023 Assessment & Plan (08/28/2024 7:07 AM EST): Recommendations: freq small meals, nothing to eat or drink at least 2 hours prior to bed, limit caffeine, alcohol, as well as spicy foods Meds to limit or avoid if possible: NSAIDS Elevate HOB if possible Current med: omeprazole Assessment & Plan (01/30/2024 7:29 AM EDT): monitor PAH (pulmonary artery hypertension)11/08/2022 Assessment & Plan (01/01/2025 6:42 AM EDT): [...] PAP, looking into inspire No chest pain/pressure/dyspnea Bipolar 1 disorder, depressed, full kgtumyxtm65/24/2018OSA (obstructive sleep apnea)11/25/2016 Assessment & Plan (03/10/2025 12:54 PM EDT): Had the inspire placed. Has had no issues with sleep since the inspire Assessment & Plan (01/01/2025 1:23 PM EDT): [...] device insertion Continue with specialist for this Xpvdbkod07/11/7155Uizysbx81/26/2012Crohn's disease of both small and large intestine without wjavgpqljdold09/28/2012 Assessment & Plan (08/28/2024 7:07 AM EST): Continue to follow with GI Assessment & Plan (01/30/2024 7:28 AM EDT): Continue to monitor GI Resolved Problems ProblemNoted DateDiagnosed DateResolved DatePulmonary hypertension, unspecified 503/5Achilles tendinosis of left ankle/06/2023 Pulmonary hypertension, stxsikbfhxg41/04/202410/ Assessment & Plan (01/30/2024 7:28 AM EDT): No longer takes meds or follows with cardiology Herpes zoster with nqjgaclphrdh89/04/202404/09/2023Other chronic sinusitis /11/2023 Assessment & Plan (07/13/2023 9:53 AM EST): Check CT scan of sinuses BMI 38.0-38.9,adultNon-suppurative otitis media07/04/2023 07/04/2023Otitis media, acute Assessment & Plan (07/04/2023 3:50 PM EST): PCN allergy is fever as a child Will trial cefdinir BID for 10 days, and add steroid Fu in 3 weeks if not better consider ENT URI, acuteOther acute bpopbfqyd71 Assessment & Plan (07/04/2023 3:51 PM EST): I suspect most of her sxs come from allergic rhinitis not treated with her nasal steroid, which causing inflammed sinuses Will add steroid, encouraged nasal steroid fu in 3 weeks, consider CT sinus as well Assessment & Plan (06/07/2023 8:42 AM EST): Will send in atb, if not better will need fu appt Thyroid hjajem35/11/20230741Yhxemewm59/22/202307/Other chronic pain elvic pain01/14/ross bvvptligz62/16/2023 01/14/20236817Qpcne34Flank pain11/08/OVID-19 /02/2025Enterolith of small /10/2024Other vjxskeguuequif74/21/202107/ipolar disorder, /21/2021 05/29/2024 Assessment & Plan (04/10/2024 8:56 AM [...] agreeable to see Mariam Bipolar disorder, curr episode mixed, severe, with psychotic yxntwdkc36/24/2018 04/10/2024rohn's disease of wpvfmohaa06 Overview (09/28/2023): Last Assessment & Plan: ASSESSMENT: [...] [facility] staff Dr. Yong Rodriguez Disorder of lung5Chest pain Encounters DateTypeDepartmentCare YzpmTfxzsdfnvoj85/01/2025 11:30 AM EDTOffice Visit [facility] [address] [place] [address] Fariba Dudley, NETO Left arm numbness (Primary Dx); Chest nsfempzn50/01/2025Bamboo flowsheet [facility] [address] [place] [address] Fariba Dudley NP 03/26/20259134Nigqyx86/29/5736Endinq75/24/2025 10:15 AM EDTAncillary Procedure [facility] [address] [facility] [place] [address] Chest pressure; Left arm numbness; Acute pain of left zteboohd16/24/2025 10:00 AM EDTOffice Visit [address] [facility] [address] Fariba Dudley NP Chest pressure (Primary Dx); Left arm numbness; Acute pain of left fffluevz58/24/2025Results Follow-Up [address] [facility] [address] Fariba Dudley NP XR chest 2 views, XR cervical spine 2 or 3 views, XR shoulder 2+ views left, Additional followed-upresults: amb flowsheet [address] [facility] [address] Mckenna Bishop MD 03/19/20255074Qutbuh50/15/2025 11:00 AM EDTOffice Visit [address] [facility] [address] Fariba Dudley NP Encounter to establish care with new provider (Primary Dx); Bipolar 1 disorder (HCC); Anxiety; NIRMALA (obstructive sleep apnea); Mixed hyperlipidemia ; Gastroesophageal reflux disease, unspecified whether esophagitis present; Chronic right hip pain; Rash and nonspecific skin eruption; Pulmonary hypertension, unspecified (HCC); Primary hypertension ; Morbid (severe) obesity due to excess calories ([facility])03/10/2025amboo flowsheet [address] [place] [address] Fariba Dudley NP 03/10/20259457Qycnfu09/01/20256233Ltefoa64/21/2025Clinisync Result Encounter [facility] Unsolicited Provider, Generic External Data 5Clinisync Result Encounter [facility] Unsolicited Provider, Generic External Data 01/15/2025Orders Only [facility]ASMAA[facility] [address] [place] [address] Essie Ryan NP S/P total right hip arthroplasty (Primary Dx); Chronic right hip painfrom Last 3 Months Immunizations ImmunizationAdministration DatesNext DueInfluenza Whole05/03/2012Influenza, injectable, uaokxprvvilo66/08/2012 Family History Medical HistoryRelationNameCommentsCancerFatherCharlesDiabetesFatherCharlesHeart diseaseFatherCharlesHypertensionFatherCharlesCancerMotherSharonRelationName StatusCommentsFatherCharlesDeceasedMotherSharonAlive Social History Tobacco UseTypesPacks/DayYears UsedDateSmoking Tobacco: NeverPassive Smoke Exposure: NeverSmokeless Tobacco: Never Tobacco Cessation:Counseling Given: Not Answered Alcohol UseStandard Drinks/WeekCommentsNever0 (1 standard drink = 0.6 oz pure alcohol)caffeine intake: 1-2 cups per wjoN1210 Health LiteracyAnswerDate RecordedHow often do you need to have someone help you when you read instructions, pamphlets, or other written material from your doctor or pharmacy? Never08/28/2024Humiliation, Afraid, Rape, and Kick questionnaireAnswerDate RecordedWithin the last year, have you been afraid of your partner or ex-partner?Patient tixrosgx76/20/2023Within the last year, have you been humiliated or emotionally abused in other ways by your partner or ex-partner? Patient pfhjgicy40/20/2023Within the last year, have you been kicked, hit, slapped, or otherwise physically hurt by your partner or ex-partner?Patient ktyzwral71/20/2023Within the last year, have you been raped or forced to have any kind of sexual activity by your partner or ex-partner?Patient declined 06/14/2023Social Connection and Isolation PanelAnswerDate RecordedIn a typical week, how many times do you talk on the phone with family, friends, or neighbors?Once a week08/28/2024How often do you get together with friends or relatives?Once a week08/28/2024How often do you attend taoist or christian services?Never08/28/2024Do you belong to any clubs or organizations such as taoist groups, unions, fraternal or athletic groups, or school groups?No 08/28/2024How often do you attend meetings of the clubs or organizations you belong to?Never08/28/2024re you , , , , never , or living with a partner?Lupqegb0308/28/2024UDIT-CAnswerDate RecordedQ1: How often do you have a drink containing alcohol?Never08/28/2024Q2: How many drinks containing alcohol do you have on a typical day when you are drinking? Patient does not drink08/28/2024Q3: How often do you have six or more drinks on one occasion?Never08/28/2024Overall Financial Resource Strain (CARDIA)AnswerDate RecordedHow hard is it for you to pay for the very basics like food, housing, medical care, and heating?Not very hard08/28/2024PHQ-2AnswerDate RecordedPatient Health Questionnaire-2 Ewkee270[facility] [place] [facility] Occup[facility] - Occupational Stress QuestionnaireAnswerDate RecordedDo you feel stress - tense, restless, nervous, or anxious, or unable to sleep at night because your mind is troubled all the time - these days?Only a kkgzjo7408/28/2024Exercise Vital SignAnswerDate RecordedOn average, how many days per week do you engage in moderate to strenuous exercise (like a brisk walk)?0 days08/28/2024On average, how many minutes do you engage in exercise at this level?0 min08/28/2024Hunger Vital SignAnswerDate RecordedWithin the past 12 months, you worried that your food would run out before you got the money to buymore.Never true08/28/2024 Within the past 12 months, the food you bought just didn't last and you didn't have money to get more.Never true08/28/2024PRAPARE - TransportationAnswerDate RecordedIn the past 12 months, has lack of transportation kept you from medical appointments or from getting medications?No08/28/2024In the past 12 months, has lack of transportation kept you from meetings, work, or from getting things needed for daily living?08/28/2024Housing Stability Vital SignAnswerDate RecordedIn the last 12 months, was there a time when you were not able to pay the mortgage or rent on time?No06/14/2023Number of Places Lived in the Last Year Not on file06/14/2023In the last 12 months, was there a time when you did not have a steady place to sleep or slept in tronaelter (including now)?No06/14/2023 Housing Stability Vital SignAnswerDate RecordedIn the last 12 months, was there a time when you were not able to pay the mortgage or rent on time?No08/28/2024In the past 12 months, how many times have you moved where you were living?0 08/28/2024t any time in the past 12 months, were you homeless or living in a correction (including now)?No08/28/2024CommentsUnknownSex and Gender InformationValueDate RecordedSex Assigned at BirthNot on fileLegal SexFemale 09/07/2022 7:01 PM EDTGender IdentityNot on fileSexual OrientationNot on file Last Filed Vital Signs Vital SignReadingTime TakenCommentsBlood Evfbzihw830/8210 11:28 AM EDT Cbqaz4020 11:28 AM MGGGeipkbxzhix15.1 ??C (97 ??F)03/26/2025 11:28 AM EDTRespiratory Dyhm5371 1:04 PM EDTOxygen Bvhgjwgarf38%03/26/2025 11:28 AM EDTInhaled Oxygen Concentration--Wqncgq60.6 kg (202 lb)03/26/2025 11:28 AM WMEMhwvnt212.6 cm (5' 1.25 )03/10/2025 10:56 AM EDTBody Mass Index37.86 03/10/2025 10:56 AM EDT Plan of Treatment DateTypeDepartmentCare Team (Latest Contact Info)Djyimwjyfqo88/17/2025 1:00 PM ESTOffice Visit [facility] [address] [place] [address] Fariba Dudley NP [address], [place] [id number] Health MaintenanceDue DateLast DoneCommentsPap Smear1997HPV/Cotest 06/20/20065771Vzonmbyct37/11/202604/04/2025, 08/17/2023, 08/04/2022, Additional history existsInfluenza VzrltevAjmnjklvikyx86/08/2012, 05/03/2012Colonoscopy Wadesyhqjhmh50/22/2021Colorectal Cancer ScreeningDiscontinuedCT Colonography DiscontinuedCervical Cancer ScreeningDiscontinuedFIT-DNADiscontinuedFIT DiscontinuedFOBTDiscontinuedSigmoidoscopyDiscontinued Procedures Procedure NamePriorityDate/TimeAssociated DiagnosisCommentsXR SHOULDER 2+ VIEWS CLVEYiurstc64/24/2025 11:06 AM EDT Acute pain of left shoulder XR CERVICAL SPINE 2-3 CKNBJOawsqvb02/24/2025 11:06 AM EDT Left arm numbness XR CHEST 2 VXNOTPsiwwtg21/24/2025 11:06 AM EDT Chest pressure Left arm numbness PGMISLTZCglpgqk92/24/2025 10:39 AM EDT Left arm numbness VITAMIN K59Fdhhquh86/24/2025 10:39 AM EDT Chest pressure Left arm numbness TSH W/REFLEX TO TD2Ksfxrii15/24/2025 10:39 AM EDT Chest pressure Left arm numbness COMPREHENSIVE METABOLIC AANMIHhrptal14/24/2025 10:39 AM EDT Chest pressure CBC (INCLUDES DIFF/PLT)Rduisvs3403/19/2025 10:39 AM EDT Chest pressure HMHP PTH, ETCMEWRVFIHYJQWcetwux94/21/2025 11:03 AM EDT ALL VKUVBUGDUICIkfbvlh72/21/2025 11:03 AM EDT CCF HFRZQEXHggwful71/21/2025 11:03 AM EDT ALL URIC OKPGCdtrggz04/21/2025 11:03 AM EDT TBH GGJXIZUQJNRveqrui75/21/2025 11:03 AM EDT ALL PBVVloddkd82/21/2025 11:03 AM EDT ALL CARBON BNPQSSWExuvdhe01/21/2025 11:03 AM EDT ALL OFQGJXYSZeofdci50/21/2025 11:03 AM EDT ALL GTVXGDPpdobci94/21/2025 11:03 AM EDT CITRIC ACID (CITRATE), UKEZVPffwpbx04/21/2025 10:15 AM EDT BOX LOXMTdrskjx39/21/2025 10:15 AM EDT MAGNESIUM, LCMRWWhrhalw47/21/2025 10:15 AM EDT URIC ACID, 24 HR KFNTRLmprzwh37/21/2025 10:15 AM EDT PHOSPHORUS, 24 HR LUDWBTsdezxn17/21/2025 10:15 AM EDT SODIUM 24 HOUR DINSRPaitppx30/21/2025 10:15 AM EDT CALCIUM 24 HOUR SGEFOItcboqz09/21/2025 10:15 AM EDT CREATININE 24 HOUR DONUEBpinadc81/21/2025 10:15 AM EDT XR ABDOMEN 1V02/11/2025 12:36 PM EDT MM TOMOSYNTHESIS SCREENING BI10/04/2024 12:29 PM EDT from Last 3 Months or Most Recently Relevant to Health Maintenance Results * XR shoulder 2+ views left (03/19/2025 11:06 AM EDT)Anatomical RegionLaterality ModalityUpper Extremities, ShoulderLeftRadiographic ImagingSpecimen (Source) Anatomical Location / LateralityCollection Method / VolumeCollection Time Received Time03/19/2025 11:58 AM EDT Impressions 03/19/2025 11:58 AM EDT No acute osseous findings. ELECTRONICALLY SIGNED BY: Terry Nava MD Narrative 03/19/2025 11:58 AM EDT EXAMINATION/TECHNIQUE: XR SHOULDER 2+ VIEWS LEFT HISTORY: Left shoulder pain for 2 days. COMPARISON: None RESULT: No acute fracture or dislocation. Glenohumeral joint space maintained. Mild degenerative changes acromioclavicular joint. Acromiohumeral interval maintained. Soft tissues unremarkable. Visualized thorax/lungs unremarkable. Procedure Note Terry Nava MD - 03/19/2025 EXAMINATION/TECHNIQUE: XR SHOULDER 2+ VIEWS LEFT HISTORY: Left shoulder pain for 2 days. COMPARISON: None RESULT: No acute fracture or dislocation. Glenohumeral joint space maintained.Mild degenerative changes acromioclavicular joint. Acromiohumeral intervalmaintained. Soft tissues unremarkable. Visualized thorax/lungsunremarkable. IMPRESSION: No acute osseous findings. ELECTRONICALLY SIGNED BY: Terry Nava MD Authorizing ProviderResult TypeResult StatusBreann Majors NPIMG XR PROCEDURES Final Result * XR cervical spine 2 or 3 views (03/19/2025 11:06 AM EDT)Anatomical Region LateralityModalitySpine, C-spineRadiographic ImagingSpecimen (Source) Anatomical Location / LateralityCollection Method / VolumeCollection Time Received Time03/19/2025 11:57 AM EDT Impressions 03/19/2025 11:58 AM EDT No acute osseous findings. Degenerative changes. ELECTRONICALLY SIGNED BY: Terry Nava MD Narrative 03/19/2025 11:58 AM EDT EXAMINATION/TECHNIQUE: XR CERVICAL SPINE 2-3 VIEWS HISTORY: Left arm numbness. COMPARISON: None RESULT: Counting Reference: Craniocervical junction. Alignment anatomic. No radiographic evidence for acute fracture. Vertebral body heights maintained.Disc spaces maintained. Facet/uncovertebral degenerative changes. Device leads within the right anterior tissues. Lung apices clear. Procedure Note Terry Nava MD - 03/19/2025 EXAMINATION/TECHNIQUE: XR CERVICAL SPINE 2-3 VIEWS HISTORY: Left arm numbness. COMPARISON: None RESULT: Counting Reference: Craniocervical junction. Alignment anatomic. No radiographic evidence for acute fracture. Vertebralbody heights maintained. Disc spaces maintained. Facet/uncovertebraldegenerative changes. Device leads within the right anterior tissues. Lungapices clear. IMPRESSION: No acute osseous findings. Degenerative changes. ELECTRONICALLY SIGNED BY: Terry Nava MD Authorizing ProviderResult TypeResult StatusBreann Majors NPIMG XR PROCEDURES Final Result * XR chest 2 views (03/19/2025 11:06 AM EDT)Anatomical RegionLateralityModality ChestRadiographic ImagingSpecimen (Source)Anatomical Location / Laterality Collection Method / VolumeCollection TimeReceived Time03/19/2025 11:56 AM EDT Impressions 03/19/2025 11:57 AM EDT No acute radiographic findings. ELECTRONICALLY SIGNED BY: Terry Nava MD Narrative 03/19/2025 11:57 AM EDT EXAMINATION/TECHNIQUE: XR CHEST 2 VIEWS HISTORY: Chest pressure. COMPARISON: None RESULT: No consolidation. No pleural effusion. No pneumothorax. Normal cardiomediastinal silhouette. No acute osseous findings. Degenerative changes. Device within the right chest wall with lead extending cranially out of the zcqpg-el-vbma. Procedure Note Terry Nava MD - 03/19/2025 EXAMINATION/TECHNIQUE: XR CHEST 2 VIEWS HISTORY: Chest pressure. COMPARISON: None RESULT: No consolidation. No pleural effusion. No pneumothorax. Normalcardiomediastinal silhouette. No acute osseous findings. Degenerativechanges. Device within the right chest wall with lead extending craniallyout of the cjxqf-oa-ouoy. IMPRESSION: No acute radiographic findings. ELECTRONICALLY SIGNED BY: Terry Nava MD Authorizing ProviderResult TypeResult StatusSage Memorial Hospitalbernardino NPIMG XR PROCEDURES Final Result * TSH W/REFLEX TO FT4 (03/19/2025 10:39 AM EDT)ComponentValueRef RangeTest MethodAnalysis TimePerformed AtPathologist SignatureTSH W/REFLEX TO FT40.93 mIU/LQUESTComment: ?Reference Range ? > or = 20 Years 0.40-4.50 ? Ranges ?First trimester ?0.26-2.66 ?Second trimester ?? 0.55-2.73 ?Third trimester ?0.43-2.91 Specimen (Source)Anatomical Location / LateralityCollection Method / Volume Collection TimeReceived Time03/19/2025 10:39 AM EDT03/19/2025 10:40 AM EDT Narrative Resulting Agency Comment Performing Organization Information ?Site ID: QPT ?Name: [facility] ?Address: [address] [place] [address], [address] [place] [id number] ?Director: Rosalio Wolfe MD Authorizing ProviderResult TypeResult StatusSage Memorial Hospitalbernardino NPLAB BLOOD ORDERABLES Final ResultPerforming OrganizationAddressCity/State/ZIP CodePhone Number [facility] * (ABNORMAL) CBC and differential (03/19/2025 10:39 AM EDT)ComponentValueRef RangeTest MethodAnalysis TimePerformed AtPathologist SignatureWHITE BLOOD CELL COUNT7.63.8 - 10.8 Thousand/uLQUESTRED BLOOD CELL COUNT4.593.80 - 5.10 Million/nWPTSQGDFSNMWZHAE51.511.7 - 15.5 g/oCPGKMBRRXOIJPGLT72.135.0 - 45.0 % UTJCGGVX00.780.0 - 100.0 kTCCPZKNBD80.427.0 - 33.0 lvSPLZMTCXD32.132.0 - 36.0 g/dLQUESTComment: For adults, a slight decrease in the calculated MCHC value (in the range of 30 to 32 g/dL) is most likely not clinically significant; however, it should be interpreted with caution in correlation with other red cell parameters and the patient's clinical condition. RDW12.911.0 - 15.0 %QUESTPLATELET ZYPVP836450 - 400 Thousand/wGCRSVJQRC31.07.5 - 12.5 fLQUESTABSOLUTE NEUTROPHILS4,0131,500 - 7,800 cells/uLQUESTABSOLUTE LYMPHOCYTES2,917898 - 3,900 cells/uLQUESTABSOLUTE SIGBTQMWD567306 - 950 cells/uL QUESTABSOLUTE GYUJLVXLEKS884(H)15 - 500 cells/uLQUESTABSOLUTE DWFFIOXFN2359 - 200 cells/hIPBHEUJHOKZOAPORM60.8%LDLXKNGPBVQBLFKQ88.5%QUESTMONOCYTES7.2%QUEST EOSINOPHILS7.0%QUESTBASOPHILS1.5%QUESTSpecimen (Source)Anatomical Location / LateralityCollection Method / VolumeCollection TimeReceived TimeBloodVenous blood specimen / Maxxylo3503/19/2025 10:39 AM EDT03/19/2025 10:40 AM EDT Narrative Resulting Agency Comment Performing Organization Information ?Site ID: QPT ?Name: [facility] ?Address: [address] [place] [id number] ?Director: Rosalio Wolfe MD Authorizing ProviderResult TypeResult StatusBreann Majors NPLAB BLOOD ORDERABLES Final ResultPerforming OrganizationAddressCity/State/ZIP CodePhone Number QUEST * Ferritin (03/19/2025 10:39 AM EDT)ComponentValueRef RangeTest MethodAnalysis TimePerformed AtPathologist TzcjzxlelFMPLNMLZ9349 - 232 ng/mLQUESTSpecimen (Source)Anatomical Location / LateralityCollection Method / VolumeCollection TimeReceived TimeBloodVenous blood specimen / Gyqnhxx2403/19/2025 10:39 AM EDT 03/19/2025 10:40 AM EDT Narrative Resulting Agency Comment Performing Organization Information ?Site ID: QPT ?Name: [facility] ?Address: [facility] [place] , [address] [place], [place] [id number] ?Director: Rosalio Wolfe MD Authorizing ProviderResult TypeResult StatusB[facility] NPLAB BLOOD ORDERABLES Final ResultPerforming OrganizationAddressty/State/ZIP CodePhone Number QUEST * Vitamin B12 (03/19/2025 10:39 AM EDT)ComponentValueRef RangeTest Method Analysis TimePerformed AtPathologist SignatureVITAMIN [id number] - 1,100 pg/mL QUESTSpecimen (Source)Anatomical Location / LateralityCollection Method / VolumeCollection TimeReceived TimeBloodVenous blood specimen / Unknown 03/19/2025 10:39 AM EDT03/19/2025 10:40 AM EDT Narrative Resulting Agency Comment Performing Organization Information ?Site ID: QPT ?Name: [facility] ?Address: [facility] [address], [address] [place] [address] ?Director: Rosalio Wolfe MD Authorizing ProviderResult TypeResult StatusBanner [facility] Center NPLAB BLOOD ORDERABLES Final ResultPerforming OrganizationAddressCity/State/ZIP CodePhone Number QUEST * Comprehensive metabolic panel (03/19/2025 10:39 AM EDT)ComponentValueRef Range Test MethodAnalysis TimePerformed AtPathologist UbalrpkjhAjoojcd8289 - 99 mg/dLQUESTComment: ? Fasting reference interval MOH909 - 25 mg/dLQUESTCreatinine0.850.50 - 0.99 mg/oLUQAVYFMMI10> OR = 60 mL/min/1.95b2XGUWZNWI/CREATININE RATIOSEE NOTE: (calc)QUESTComment: ?? Not Reported: BUN and Creatinine are within ?? reference range. ? Xqenuw864662 - 146 mmol/LQUESTPotassium, Bld4.23.5 - 5.3 mmol/FUPIAZPwigjepm015 98 - 110 mmol/LQUESTCarbon Ityvwua9117 - 32 mmol/LQUESTCalcium9.38.6 - 10.2 mg/dLQUESTPROTEIN, TOTAL6.76.1 - 8.1 g/dLQUESTALBUMIN4.13.6 - 5.1 g/dLQUEST GLOBULIN2.61.9 - 3.7 g/dL (calc)QUESTALBUMIN/GLOBULIN RATIO1.61.0 - 2.5 (calc) QUESTBILIRUBIN, TOTAL0.40.2 - 1.2 mg/dLQUESTALKALINE CJJFWHQZNIJ2579 - 125 U/L WBFICHCG1631 - 35 U/CYKVOGCBU522 - 29 U/LQUESTSpecimen (Source)Anatomical Location / LateralityCollection Method / VolumeCollection TimeReceived TimeBlood Venous blood specimen / Iibusvg8603/19/2025 10:39 AM EDT03/19/2025 10:40 AM EDT Narrative Resulting Agency Comment Performing Organization Information ?Site ID: QPT ?Name: [facility] ?Address: [address] [place] [phone] ?Director: Rosalio Wolfe MD Authorizing ProviderResult TypeResult StatusBreann Majors NPLAB BLOOD ORDERABLES Final ResultPerforming OrganizationAddressCity/State/ZIP CodePhone Number QUEST * [facility]H CREATININE (02/13/2025 11:03 AM EDT)ComponentValueRef RangeTest Method Analysis TimePerformed AtPathologist SignatureCREATININE0.860.55 - 1.02 mg/dL TBHTBH EGFR-AF [place]>60>=60 mL/min/1.73m 2TBHTBH EGFR-NON AF [place]>60 >=60 mL/min/1.73m 2TBHSpecimen (Source)Anatomical Location / Laterality Collection Method / VolumeCollection TimeReceived Time02/13/2025 11:03 AM EDT 02/13/2025 11:10 AM EDT Narrative [facility] - 02/13/2025 11:47 AM EDT Authorizing ProviderResult TypeResult StatusGeneric External Data Provider CLINISYNCFinal ResultPerforming OrganizationAddressCity/State/ZIP CodePhone Number [facility] * HMHP PTH, INTRAOPERATIVE (02/13/2025 11:03 AM EDT)ComponentValueRef RangeTest MethodAnalysis TimePerformed AtPathologist SignaturePTH, PXMHEF7694 - 65 pg/mL TBHComment: Performed at: ??CB - [facility] [address] ??[id number] Hand Box Folder: Avni Schmid PhD, Phone: ??[phone] Specimen (Source)Anatomical Location / LateralityCollection Method / Volume Collection TimeReceived Time02/13/2025 11:03 AM EDT02/13/2025 11:10 AM EDT Narrative [facility] - 02/14/2025 12:08 PM EDT Authorizing ProviderResult TypeResult StatusGeneric External Data Provider CLINISYNCFinal ResultPerforming OrganizationAddressty/State/ZIP CodePhone Number [facility] * [facility] CALCIUM (02/13/2025 11:03 AM EDT)ComponentValueRef RangeTest Method Analysis TimePerformed AtPathologist SignatureCALCIUM9.08.5 - 10.1 mg/dLTBH Specimen (Source)Anatomical Location / LateralityCollection Method / Volume Collection TimeReceived Time02/13/2025 11:03 AM EDT02/13/2025 11:10 AM EDT Narrative [facility] - 02/13/2025 11:47 AM EDT Authorizing ProviderResult TypeResult StatusGeneric External Data Provider CLINISYNCFinal ResultPerforming OrganizationAddPenn Presbyterian Medical Centerty/State/ZIP CodePhone Number [facility] * ALL URIC ACID (02/13/2025 11:03 AM EDT)ComponentValueRef RangeTest Method Analysis TimePerformed AtPathologist SignatureURIC ACID3.92.6 - 6.0 mg/dLTBH Specimen (Source)Anatomical Location / LateralityCollection Method / Volume Collection TimeReceived Time02/13/2025 11:03 AM EDT02/13/2025 11:10 AM EDT Narrative [facility] - 02/13/2025 11:47 AM EDT Authorizing ProviderResult TypeResult StatusGeneric External Data Provider CLINISYNCFinal ResultPerforming OrganizationAddPenn Presbyterian Medical Centerty/State/ZIP CodePhone Number [facility] * ALL SODIUM (02/13/2025 11:03 AM EDT)ComponentValueRef RangeTest MethodAnalysis TimePerformed AtPathologist DeifctzshYGSNHV631989 - 145 mmol/LTBHSpecimen (Source)Anatomical Location / LateralityCollection Method / VolumeCollection TimeReceived Time02/13/2025 11:03 AM EDT02/13/2025 11:10 AM EDT Narrative CLINISYNJ - 02/13/2025 11:47 AM EDT Authorizing ProviderResult TypeResult StatusGeneric External Data Provider CLINISYNCFinal ResultPerforming OrganizationAddressty/State/ZIP CodePhone Number [facility] * ALL PHOSPHOROUS (02/13/2025 11:03 AM EDT)ComponentValueRef RangeTest Method Analysis TimePerformed AtPathologist SignaturePHOSPHORUS3.52.6 - 4.7 mg/dLTBH Specimen (Source)Anatomical Location / LateralityCollection Method / Volume Collection TimeReceived Time02/13/2025 11:03 AM EDT02/13/2025 11:10 AM EDT Narrative CLINISYNJ - 02/13/2025 11:47 AM EDT Authorizing ProviderResult TypeResult StatusGeneric External Data Provider CLINISYNCFinal ResultPerforming OrganizationAddressCity/State/ZIP CodePhone Number [facility] * ALL CHLORIDE (02/13/2025 11:03 AM EDT)ComponentValueRef RangeTest Method Analysis TimePerformed AtPathologist JnzbkqrkqFNVUKIEL61388 - 107 mmol/LTBH Specimen (Source)Anatomical Location / LateralityCollection Method / Volume Collection TimeReceived Time02/13/2025 11:03 AM EDT02/13/2025 11:10 AM EDT Narrative CLINISYNJ - 02/13/2025 11:47 AM EDT Authorizing ProviderResult TypeResult StatusGeneric External Data Provider CLINISYNCFinal ResultPerforming OrganizationAddPenn Presbyterian Medical Centerty/State/ZIP CodePhone Number [facility] * ALL CARBON DIOXIDE (02/13/2025 11:03 AM EDT)ComponentValueRef RangeTest Method Analysis TimePerformed AtPathologist SignatureCARBON EISHGNN24.821.0 - 32.0 mmol/LTBHSpecimen (Source)Anatomical Location / LateralityCollection Method / VolumeCollection TimeReceived Time02/13/2025 11:03 AM EDT02/13/2025 11:10 AM EDT Narrative CLINISYNJ - 02/13/2025 11:47 AM EDT Authorizing ProviderResult TypeResult StatusGeneric External Data Provider CLINISYNCFinal ResultPerforming OrganizationAddressty/State/ZIP CodePhone Number [facility] * ALL BUN (02/13/2025 11:03 AM EDT)ComponentValueRef RangeTest MethodAnalysis TimePerformed AtPathologist SignatureBLOOD UREA QQWLRPUA84.07.0 - 18.0 mg/dL TBHSpecimen (Source)Anatomical Location / LateralityCollection Method / Volume Collection TimeReceived Time02/13/2025 11:03 AM EDT02/13/2025 11:10 AM EDT Narrative [facility] - 02/13/2025 11:47 AM EDT Authorizing ProviderResult TypeResult StatusGeneric External Data Provider CLINISYNCFinal ResultPerforming OrganizationAddressCity/State/ZIP CodePhone Number [facility] * BOX TEST (02/13/2025 10:15 AM EDT)ComponentValueRef RangeTest MethodAnalysis TimePerformed AtPathologist SignatureBOX TEST SENT VTZ38CA URINE OXALATETBH OZQ3PDXNTPDXT WPANTKREKACH31/21/25TBHBOX TEST RESULT02/14/25TBHComment:SEE SCANNED REPORTSpecimen (Source)Anatomical Location / LateralityCollection Method / VolumeCollection TimeReceived Time02/13/2025 10:15 AM EDT02/13/2025 10:43 AM EDT Narrative [facility] - 02/14/2025 4:45 PM EDT UOXALD OXALATE [address] [facility] Authorizing ProviderResult TypeResult StatusGeneric External Data ProviderLAB BLOOD ORDERABLESEdited Result - FinalPerforming OrganizationAddress City/State/ZIP CodePhone Number [facility] * MAGNESIUM, URINE (02/13/2025 10:15 AM EDT)ComponentValueRef RangeTest Method Analysis TimePerformed AtPathologist SignatureMAGNESIUM, U7.1Not Estab. mg/dL TBHComment: Specimen received without preservative. Value may be decreased. Consider recollection with preservative if clinical correlation indicated. MAGNESIUM,URINE 24HR92.312.0 - 293.0 mg/24 hrTBHComment: Performed at: ?? - [facility], [place], [place] ??[id number] Hand Box Folder: Avni Schmid PhD, Phone: ??[phone] Specimen (Source)Anatomical Location / LateralityCollection Method / Volume Collection TimeReceived Time02/13/2025 10:15 AM EDT02/13/2025 10:43 AM EDT Narrative [facility] - 02/14/2025 1:09 PM EDT 1300 Authorizing ProviderResult TypeResult StatusGeneric External Data ProviderLAB BLOOD ORDERABLESFinal ResultPerforming OrganizationAddPenn Presbyterian Medical Centerty/State/ZIP Code Phone Number [facility] * PHOSPHORUS, 24 HR URINE (02/13/2025 10:15 AM EDT)ComponentValueRef RangeTest MethodAnalysis TimePerformed AtPathologist SignaturePHOSPHORUS, URINE73.1Not Estab. mg/dLTBHPHOSPHORUS,URINE 98F796551 - 1078 mg/24 hrTBHSpecimen (Source) Anatomical Location / LateralityCollection Method / VolumeCollection Time Received Time02/13/2025 10:15 AM EDT02/13/2025 10:43 AM EDT Narrative [facility] - 02/14/2025 1:09 PM EDT 1300 Authorizing ProviderResult TypeResult StatusGeneric External Data ProviderLAB BLOOD ORDERABLESFinal ResultPerforming OrganizationAddPenn Presbyterian Medical Centerty/State/ZIP Code Phone Number [facility] * (ABNORMAL) SODIUM 24 HOUR URINE (02/13/2025 10:15 AM EDT)ComponentValueRef RangeTest MethodAnalysis TimePerformed AtPathologist SignatureSODIUM URINE FXPKXX217(H)30 - 90 mmol/LTBHSODIUM 24 HOUR OADGM967(H)40 - 220 mmol/24hTBH Specimen (Source)Anatomical Location / LateralityCollection Method / Volume Collection TimeReceived Time02/13/2025 10:15 AM EDT02/13/2025 10:43 AM EDT Narrative [facility] - 02/13/2025 2:15 PM EDT Authorizing ProviderResult TypeResult StatusGeneric External Data ProviderLAB BLOOD ORDERABLESFinal ResultPerforming OrganizationAddP[facility]byterian Medical Centerty/State/ZIP Code Phone Number [facility] * URIC ACID, 24 HR URINE (02/13/2025 10:15 AM EDT)ComponentValueRef RangeTest MethodAnalysis TimePerformed AtPathologist SignatureURIC ACID, URINE42.3Not Estab. mg/dLTBHURIC ACID,URINE 01SZ211.9173.7 - 902.1 mg/24 hrTBHComment: Performed at: ?? - [facility] ??[id number] Hand Box Folder: Avni Schmid PhD, Phone: ??[phone] Specimen (Source)Anatomical Location / LateralityCollection Method / Volume Collection TimeReceived Time02/13/2025 10:15 AM EDT02/13/2025 10:43 AM EDT Narrative [facility] - 02/14/2025 1:09 PM EDT 1300 Authorizing ProviderResult TypeResult StatusGeneric External Data ProviderR[facility] BLOOD ORDERABLESFinal ResultPerforming OrganizationAddressty/State/ZIP Code Phone Number [facility] * CITRIC ACID (CITRATE), URINE (02/13/2025 10:15 AM EDT)ComponentValueRef Range Test MethodAnalysis TimePerformed AtPathologist SignatureCITRIC ACID, NSVKF081 Undefined mg/LTBHComment: This test was developed and its performance characteristics determined by [facility]. It has not been cleared or approved by the Food and Drug Administration. CITRIC ACID, U, 58YL252275 - 1240 mg/24 hrTBHComment: Performed at: ?? - [facility] ??[id number] Hand Box Folder: Freddy Gates MD, Phone: ??[phone] Specimen (Source)Anatomical Location / LateralityCollection Method / Volume Collection TimeReceived Time02/13/2025 10:15 AM EDT02/13/2025 10:43 AM EDT Narrative [facility] - 02/18/2025 7:07 AM EDT 1300 Authorizing ProviderResult TypeResult StatusGeneric External Data ProviderLAB BLOOD ORDERABLESFinal ResultPerforming OrganizationAddressty/State/ZIP Code Phone Number [facility] * CALCIUM 24 HOUR URINE (02/13/2025 10:15 AM EDT)ComponentValueRef RangeTest MethodAnalysis TimePerformed AtPathologist SignatureCALCIUM URINE XMGHEL26.9 5.1 - 21.0 mg/dLTBHCALCIUM 24 HOUR YDIQU183.7100.0 - 300.0 mg/24hrTBHSpecimen (Source)Anatomical Location / LateralityCollection Method / VolumeCollection TimeReceived Time02/13/2025 10:15 AM EDT02/13/2025 10:43 AM EDT Narrative CLINISYNJ - 02/13/2025 2:15 PM EDT Authorizing ProviderResult TypeResult StatusGeneric External Data ProviderLAB BLOOD ORDERABLESFinal ResultPerforming OrganizationAddressty/State/ZIP Code Phone Number [facility] * CREATININE 24 HOUR URINE (02/13/2025 10:15 AM EDT)ComponentValueRef RangeTest MethodAnalysis TimePerformed AtPathologist SignatureCREATININE URINE RANDOM 108.5620.00 - 300.00 mg/dLTBHTOTAL VOLUME 24 HOUR URINE1,300mL/24hrTBH CREATININE 24 HOUR URINE1,411.52932.00 - 1,800.00 mg/24 hrTBHSpecimen (Source) Anatomical Location / LateralityCollection Method / VolumeCollection Time Received Time02/13/2025 10:15 AM EDT02/13/2025 10:43 AM EDT Narrative [facility] - 02/13/2025 2:15 PM EDT Authorizing ProviderResult TypeResult StatusGeneric External Data ProviderLAB BLOOD ORDERABLESFinal ResultPerforming OrganizationAddressty/State/ZIP Code Phone Number [facility] * XR ABDOMEN 1V (02/11/2025 12:36 PM EDT)Anatomical RegionLateralityModality OtherSpecimen (Source)Anatomical Location / LateralityCollection Method / VolumeCollection TimeReceived Time02/11/2025 12:36 PM EDT Narrative 02/11/2025 12:39 PM EDT [facility] ?[address] ? [place] [address] ?XRay Report ? Signed ? Patient: STACEY FIGUEROA ?MR#: [id number] ?? : 1975 ?Acct:[id number] ?? Age/Sex: 49 / F ?ADM Date: 02/11/25 ?? Loc: RAD ? Attending Dr: Jose Gacria M.D. ? Ordering Physician: Jose Garcia M.D. ?? Date of Service: 02/11/25 ?? Procedure(s): XR abdomen 1V ?? Accession Number(s): [id number] ? cc: Essie Ryan NP; Jose Garcia M.D. ? [facility] ? [address] ? [place] [address] ? Patient Name: ?? STACEY A HENRY ? MRN: [facility]:[id number] ? date: 1975 ?Sex: F ?? Assigned Patient Location: RAD ?? Current Patient Location: RAD ?? Accession/Order Number: [id number] ?? Exam Date: 02/11/2025 ??12:30 ?Report Date: 02/11/2025 ??12:36 ? At the request of: ?? JOSE ??JOSE ??MD ? Procedure: ??XR abdomen 1V ? Single view of abdomen ? COMPARISON: None ? HISTORY: Follow-up kidney stone ? THORAX: Lung bases unremarkable. ? FREE AIR: Supine position limits assessment ? BOWEL: No gaseous intestinal distention. ? STOOL: No significant stool ? RENAL STONES: Left nephrolithiasis measuring up to 4 mm. ??Right kidney ?? obscured by stool. ??No visible stone. ? VASCULAR CALCIFICATIONS: Present ? SOFT TISSUE: Unremarkable ? BONES: Unremarkable ? POSTSURGICAL CHANGES: Right hip arthroplasty. ??Right abdominal surgical clips ?? stable 3, ring-shaped radiopaque structures in the right lower abdomen. ? XR/XR abdomen 1V ?? IMPRESSION: Left nephrolithiasis measuring up to 4 mm ? Impression dictated by: Vipin Iniguez M.D. ??02/11/2025 12:36 PM ? Dictation Location: RADIO-PC-20 ? Electronically authenticated by: [id number] ??Y ?? Date: 02/11/2025 ??12:36 ? Dictated By: ?Vipin Iniguez D.O. ? Signed By: ?02/11/25 1239 ? DD/ 1236 ? TD/TT: ? Receiving Tank Operator: Procedure Note Radiology, Radiologist, - 02/11/[address] [address] XRay Report Signed Patient: STACEY FIGUEROA [facility]#: [id number] : 1975Acct:[id number] Age/Sex: 49 / FADM Date: 02/11/25 Loc: RAD Attending Dr: Jose Garcia M.D. Ordering Physician: Jose Garcia M.D. Date of Service: 02/11/25 Procedure(s): XR abdomen 1V Accession Number(s): [id number] cc: Essie Ryan PROGRAMMER ANALYST; Jose Garcia M.D. [place] [id number] Patient Name: STACEY FIGUEROA MRN: [facility]:[id number] date: 1975 Sex: F Assigned Patient Location: RAD Current Patient Location: RAD Accession/Order Number: [id number] Exam Date: 02/11/2025 12:30 Report Date: 02/11/2025 [...] Iniguez M.D. 02/11/2025 12:36 PM Dictation Location: [place] [address] Electronically authenticated by: [id number] Y Date: 2:36 Dictated By: Vipin Iniguez D.O. Signed By:02/11/25 1239 DD/ 1236 TD/TT: Receiving Tank Operator: Authorizing ProviderResult TypeResult StatusGeneric External Data Provider CLINISYNC IMAGINGFinal Result * MM TOMOSYNTHESIS SCREENING BI (10/04/2024 12:29 PM EDT)Anatomical Region LateralityModalityOtherSpecimen (Source)Anatomical Location / Laterality Collection Method / VolumeCollection TimeReceived Time10/04/2024 12:29 PM EDT Narrative 10/04/2024 12:30 PM EDT [facility] ?[address] ? [place] [address] ? Mammography Report ? Signed ? Patient: HENRYSTACEY A ?MR#: [id number] ?? : 1975 ?Acct:[id number] ?? Age/Sex: 49 / F ?ADM Date: 10/04/24 ?? Loc: MAMMO ? Attending Dr: Essie Ryan PROGRAMMER ANALYST ? Ordering Physician: Essie Ryan NP ?Results: ? Date of Service: 10/04/24 ?Follow Up: ? Procedure(s): MM tomosynthesis screening BI ?? Accession Number(s): [id number] ? cc: Essie Ryan PROGRAMMER ANALYST ? Patient Name: ? STACEY FIGUEROA ? MR#: [id number] ? : 1975 ? Exam Date: 10/04/2024 ?? Ordering Doctor: NIURKA Ryan CNP ? RADIOLOGY REPORT ? PROCEDURE: ? MM TOMOSYNTHESIS SCREENING BI ? COMPARISON: ? MM TOMOSYNTHESIS SCREENING BI, 08/16/2023. ??MG MAMM SCREEN 3D ?? GRACIE CAD, 02/09/2022. ??MG MAMM SCREEN 3D GRACIE CAD, 09/17/2020. ??MG MAMM SCREEN GRACIE ?? W CAD, 11/14/2017. ? INDICATIONS: ? Screening ? Calculator Name ? NCI Breast Cancer Risk Assessment Tool ?? 5 Year Breast Cancer Risk ? 1.90% ?? Lifetime Breast Cancer Risk ? 17.90% ?? Personal Breast Cancer ?No ?? Personal Ovarian Cancer ? No ?? Treatments ? None ?? Family Cancers ? Aunt-maternal with breast cancer at age ??40; ?? Aunt-maternal with breast cancer at age 60; Aunt-maternal with breast cancer ?? at age 60; Mother with breast cancer at age 65; Father with throat cancer at ?? age 73; Aunt-paternal with colon cancer at age 55. ? LOCATION: ? [facility] ? BREAST COMPOSITION: ? There are scattered areas of fibroglandular density. ? FINDINGS: ? RIGHT BREAST: ??No significant suspicious finding. ? LEFT BREAST: ??No significant suspicious finding. ? DIAGNOSTIC CATEGORY 1--NEGATIVE. ? RECOMMENDATIONS: ? ROUTINE MAMMOGRAM AND CLINICAL EVALUATION IN 12 MONTHS. ? PLEASE NOTE: ??A NORMAL MAMMOGRAM DOES NOT EXCLUDE THE POSSIBILITY OF BREAST ?? CANCER. ??A CLINICALLY SUSPICIOUS PALPABLE LUMP SHOULD BE BIOPSIED. ? Dictated by: Vipin Iniguez DO on 10/04/2024 at 12:25 ? Approved by: Vipin Iniguez DO on 10/04/2024 at 12:29 ? Dictated By: ?Vipin IniguezO. ? Signed By: ?10/04/24 1230 ? DD/ 1229 ? TD/TT: ? Receiving Tank Operator: Procedure Note Radiology, Radiologist, MD - 10/04/2024 [place] [address] Mammography Report Signed Patient: STACEY FIGUEROA [facility]#: [id number] : 1975Acct:[id number] Age/Sex: 49 / FADM Date: 10/04/24 Loc: MAMMO Attending Dr: Essie Ryan PROGRAMMER ANALYST Ordering Physician: Essie Ryanults: Date of Service: 10/04/24Follow Up: Procedure(s): MM tomosynthesis screening BI Accession Number(s): [id number] cc: Essie Ryan NP Patient Name: STACEY FIGUEROA MR#: [id number] : 1975 Exam Date: 10/04/2024 Ordering Doctor: NIURKA Ryan CNP RADIOLOGY REPORT PROCEDURE: MM TOMOSYNTHESIS SCREENING BI COMPARISON: MM TOMOSYNTHESIS SCREENING BI, 08/16/2023. MG MAMM GELAYE8P GRACIE CAD, 02/09/2022. MG MAMM SCREEN 3D [...] at age 56. LOCATION: [facility] BREAST COMPOSITION: There are scattered areas of [...] D.O. Signed By:10/04/24 1230 DD/ 1229 TD/TT: Receiving Tank Operator: Authorizing ProviderResult TypeResult StatusLisa Shelby NPCLINISYNC IMAGING Final Result from Last 3 Months or Most Recently Relevant to Health Maintenance Insurance Care Teams Team MemberRelationshipSpecialtyStart DateEnd Date Essie Ryan NP [address] [place] [address] PCP - [facility]12/25/23 Mckenna Bishop MD [address] [place] [address] PCP - GeneralFamily Medicine03/10/25 Fariba Dudley NP [address] [place], [place] [phone] Nurse PractitionerFamily Medicine03/10/25
--- OUTSIDE RECORDS SUMMARY | 2025-04-17 08:24 | XMS_ITS | Clinical Summary ---
Author Organization [facility] Address [address] [place], [place] [address] Care Team Providers Care Garment Looper Name Role Phone Essie Ryan CNP Primary Care Provider [phone] Adán Torres DO Unavailable [phone] Dany ARDON MD, Alexis Antwerp Unavailable + Angel Delgado DO Unavailable [phone] Allergies Active AllergyReactionsCriticalityNoted AvtzOabamnfpMexpywhsjkgYrojuvh48/01/2017 Medications MedicationSigDispense QuantityRefillsLast FilledStart DateEnd DateStatus Omeprazole 40 mg capsule Take 40 mg by mouth once daily.Active acetaminophen (TYLENOL) 325 mg tablet Take 2 tablets by mouth every 6 hours as needed. 40 tablet 09/22/2016Active meloxicam (MOBIC) 15 mg tablet Take 15 mg by mouth once daily.2Active ARIPiprazole (ABILIFY) 30 mg tablet Take 1 tablet by mouth once daily.Active pantoprazole DR (PROTONIX) 20 mg tablet Take 1 tablet by mouth once daily for 14 days. 14 tablet 07/01/2024 3:16 PM EST5Active docusate sodium (COLACE) 100 mg capsule Take 1 capsule by mouth two times a day. Take colace while taking narcotics to decrease your risk of constipation 60 capsule 07/01/2024 3:16 PM EST5Active aspirin, enteric coated (ECOTRIN LOW STRENGTH) 81 mg EC tablet Take 1 tablet by mouth two times a day for 28 days. 56 tablet 07/01/2024 3:16 PM EST5Active naloxone 4 mg/actuation nasal spray (NARCAN) Use 1 spray in one nostril as needed for overdose. May repeat every 2 to 3 min in alternating nostrils until medical assistance is available 2 Each 07/01/2024 3:16 PM EST5Active Active Problems ProblemNoted DateDiagnosed DateS/P total right hip iqqueapucxab26/06/2025BMI 37.0-37.9, adult06/05/2024 Assessment & Plan (06/05/2024 10:30 AM EST): Assessment: diet and exercise encouraged Enterolith of small /21/2021ipolar disease, kxbevds4012/14/2020Other gqofjcdgpzgbbv98/21/2021 Assessment & Plan (06/05/2024 10:30 AM EST): Assessment: diet controlled, stable Follows up with PCP (spontaneous vaginal delivery) x 402Crohn's disease without complication (HCC) evzfcbijdytxs530845/01/2017Pulmonary HTN Assessment & Plan (06/05/2024 10:19 AM EST): Assessment: EF 65% per ECHO 11/22/22 Follows up with cardiology, last office visit 03/06/24 Asymptomatic ObeseOSA (obstructive sleep apnea) Assessment & Plan (06/05/2024 [...] [facility] staff Dr. Yong Rodriguez Resolved Problems ProblemNoted DateDiagnosed DateResolved DateGeneralized abdominal pain12/14/2020 12/16/2020 Encounters DateTypeDepartmentCare DjgtHlhyfzfopju21/21/2025Lab Requisition [facility] [address] [place] [address] Jose Khan MD from Last 3 Months Family History Medical HistoryRelationCommentsNo Known ProblemsDaughter 1No Known Problems Daughter 2CancerFatheresophageal, lungDiabetesFatherHypertensionFatherIschemic Heart DiseaseFatherBreast CancerMotherNo Known ProblemsSon 1No Known ProblemsSon 2RelationStatusCommentsDaughter 1AliveDaughter 2AliveFatherAliveMotherAliveSon 1 AliveSon 2Alive Social History Tobacco UseTypesPacks/DayYears UsedDateSmoking Tobacco: NeverSmokeless Tobacco: Never Tobacco Cessation:Counseling Given: Not Answered Alcohol UseStandard Drinks/WeekCommentsNo0 (1 standard drink = 0.6 oz pure alcohol)[facility] UtilitiesAnswerDate RecordedIn the past 12 months has the [employer], gas, oil, or water [employer] threatened to shut off services in your home?No 07/01/2024PHQ-2AnswerDate RecordedPHQ-2 ifwjw892Hunger Vital SignAnswer Date RecordedWithin the past 12 months, you worried that your food would run out before you got the money to buymore.Never true07/01/2024Within the past 12 months, the food you bought just didn't last and you didn't have money to get more.Never true07/01/2024PRAPARE - TransportationAnswerDate RecordedIn the past 12 months, has lack of transportation kept you from medical appointments or from getting medications?No07/01/2024In the past 12 months, has lack of transportation kept you from meetings, work, or from getting things needed for daily living?No07/01/2024Housing Stability Vital SignAnswerDate RecordedIn the last 12 months, was there a time when you were not able to pay the mortgage or rent on time?No07/01/2024Number of Times Moved in the Last YearNot on file 07/01/2024t any time in the past 12 months, were you homeless or living in a snf (including now)?No07/01/2024rea Deprivation IndexAnswerDate Recorded National Score (1-100), lower number is lower kdve970803/15/2024State Score (1- 10), lower number is lower viqk9424Data from: https://www.neighborhoodatlas.medicine.[facility].edu/. Last address used for [address]4CommentsNoSex and Gender Information ValueDate RecordedSex Assigned at BirthNot on fileLegal GbkJnyxdi90/27/2017 12:08 PM ESTGender IdentityNot on fileSexual OrientationNot on file Last Filed Vital Signs Vital SignReadingTime TakenCommentsBlood Hssyjhxq280/6001 3:23 PM EST Qjrrd901407/01/2024 3:23 PM GEVSirkqiimerm56.3 ??C (97.3 ??F)07/01/2024 3:23 PM ESTRespiratory Yoga086407/01/2024 11:00 AM ESTOxygen Orbwmenogv51%07/01/2024 3:23 PM ESTInhaled Oxygen Concentration--Xecpjd82.5 kg (195 lb)07/01/2024 11:54 AM WEDRkqbgw191.9 cm (4' 11 )07/01/2024 11:54 AM ESTBody Mass Index39.39007/01/2024 11:54 AM EST Plan of Treatment Health MaintenanceDue DateLast DoneCommentsAnxiety Jhewyrghr59/26/1994Depression Ovgxpwyif94/26/1994HIV Tzenufign89/26/1994DTaP,Tdap,Td Vaccine (1 - Tdap) 1995Hepatitis B Vaccine (1 of 3 - 19+ 3-dose series)1995Cervical Cancer Knjwzwuxx10/26/1997CT Xugeqlnaifgk80/26/2021Cologuard (FIT-DNA)2021 Fecal Occult Blood2021ipid Qugqgbfqu49/26/8147Xrailiqyavvww82/26/2021 Zzlebeajucn55/22/202206/olorectal Cancer Nsdisxhfl34/22/2022Mammogram Piimnlxsb36/02/2023, 3Covid-19 Vaccine ( season) 2025Influenza Vaccine (#1)Diabetes Jfseweoon92/11/2027 06/05/2024, 12/14/2020, 12/13/2020, Additional history existsHepatitis C OfstdmhpjCsmefzuhh00/19/2021 Medical Devices ImplantedTypeAreaManufacturerDevice IdentifierShelf Expiration DateModel / Serial / LotInsert Acetabular 32mm 0d D Hip X3 Trident Sterile Latex Free - [id number] [facility] [id number] / / [id number] Trident Ii 48mm D Tritanium Acetabular 3 Screw Hole Cluster Sterile - [id number] Implanted:[facility] STRY-HOW LGNDRFKCYMA32/17/[id number] / / [id number] Femoral 8x99mm Size 2 High Insignia Collared - [id number] Implanted:[facility] [id number] / / [id number] V40 32mm -4mm Offset Taper Biolox Delta Femoral Hip - [id number] Implanted:Q[facility] STRY-HOWM VLEQSFESDKN15/02/[id number] / / [id number] Trident Ii 6.5mm 30mm Bone Low Profile Hexagonal Sterile - [id number] Implanted:[facility] - [facility]STR[facility]- HOWM CMERLXIKXTG27/16/[id number] / / [id number] Procedures Procedure NamePriorityDate/TimeAssociated DiagnosisCommentsOXALATE 24 HR URINE Wwptvlz5002/13/2025 10:15 AM EDT BASIC METABOLIC AHUXSTqaplst18/11/2024 10:59 AM EST Pre-op evaluation COLONOSCOPY GEN NMPHXayyopz21/22/2021 7:19 AM EDT *HEP C HEWxykgfm01/19/2021 10:19 PM EDT from Last 3 Months or Most Recently Relevant to Health Maintenance Results * (ABNORMAL) OXALATE 24 HR URINE (02/13/2025 10:15 AM EDT)ComponentValueRef RangeTest MethodAnalysis TimePerformed AtPathologist SignatureOxalate, Urine 24 Hour47(H)4 - 31 mg/22qge0102/14/2025 3:24 PM EDZANESV[facility] LABComment:This test was developed, and its performance characteristics determined by the [facility] Department of Pathology and Laboratory Medicine. It has not been cleared or approved by the FDA. The [facility] Department of Pathology and Laboratory Medicine is regulated under CLIA as qualified to perform high-complexity testing. This test is used for clinical purposes. It should not be regarded as investigational or for research.Period 24hr02/14/2025 3:24 PM EDZANESVILLE CITY HOSPITAL LABVolume1,300mL 02/14/2025 3:24 PM [facility] LABSpecimen (Source) Anatomical Location / LateralityCollection Method / VolumeCollection Time Received TimeUrineURINE SPECIMEN / Sggbfry1002/13/2025 10:15 AM EDT02/13/2025 11:16 PM EDT Narrative Authorizing ProviderResult TypeResult StatusPanader Khan MDLABORATORYFinal ResultPerforming OrganizationAddressCity/State/ZIP CodePhone Number [facility] [address] [facility] [place] [address], * BASIC METABOLIC PANEL (06/05/2024 10:59 AM EST)ComponentValueRef RangeTest MethodAnalysis TimePerformed AtPathologist JisujrifqRfgruyb2930 - 99 mg/dL 06/06/2024 10:14 AM [facility] LABComment: The [place] Diabetes Association (ADA) provides guidance for cutoff values for fasting glucose andrandom glucose. The ADA defines fasting as no [...] Standards of Medical Care in Diabetes 2016, [place] [employer]. Diabetes Care. 2016.39(Suppl 1). MTV885 - 21 mg/dL06/06/2024 10:14 AM [facility] Creatinine0.700.58 - 0.96 mg/dL06/06/2024 10:14 AM [facility] KOULiywdr711651 - 144 mmol/L108/07/2023 10:14 AM [facility] LABPotassium4.93.7 - 5.1 mmol/L108/07/2023 10:14 AM [facility] ROACsklwhbj01445 - 107 mmol/L108/07/2023 10:14 AM [facility] TAQRB37934 - 30 mmol/L108/07/2023 10:14 AM [facility] LABAnion Cmy010 - 15 mmol/L108/07/2023 10:14 AM [facility] LABCalcium, Total9.68.5 - 10.2 mg/dL06/06/2024 10:14 AM [facility] LABEstimated Glomerular Filtration Xliy085>=60 mL/min/1.73m 06/06/2024 10:14 AM [facility] LABComment:Estimated Glomerular Filtration Rate (eGFR) is calculated using the 2020 CKD-EPI creatinine equation. This equation utilizes serum creatinine, sex, and age as parameters. The creatinine assay has traceable calibration to isotope dilution- mass spectrometry. Refer to KDIGO guidelines for clinical interpretation. In patients with unstable renal function, e.g. those with acute kidney injury, the eGFRmay not accurately reflect actual GFR.Specimen (Source)Anatomical Location / LateralityCollection Method / VolumeCollection TimeReceived TimeBloodBLOOD SPECIMEN / UnknownVenipuncture / Kaxzpkf5806/05/2024 10:59 AM EST06/05/2024 10:59 AM EST Narrative Authorizing ProviderResult TypeResult StatusChristine Shmellyubov CYBER SYSTEMS ADMINISTRATOR.CONCRETE POLISHER LABORATORYFinal ResultPerforming OrganizationAddressCity/State/ZIP CodePhone Number [facility] [address] [facility] [place] [address], * COLONOSCOPY GEN ANES (12/15/2020 7:19 AM EDT)ComponentValueRef RangeTest MethodAnalysis TimePerformed AtPathologist SignatureTranscriptionQ3 Patient Name: Stacey Sahu Procedure Date: 12/15/2020 7:19 AM Date of : 1975 Admit Type: Outpatient Age: 45 Gender: Female Note Status: Finalized Attending MD: La Zazueta MD Procedure: ?Colonoscopy Indications: ?Disease activity assessment of Crohn's disease of ?the small bowel Providers: ?La Zazueta MD, Lady Alanis Mckeon MD ?(Fellow) Patient Profile: ?This is a 45 year old female. Refer to note in ?patient chart for documentation of history and ?physical. Last Colonoscopy: within the past 3 years. Referring Physician: Medicines: ?Monitored Anesthesia Care Complications: ?No immediate complications. Requesting Provider: Procedure: ?Pre-Anesthesia Assessment: ?- Prior to the procedure, a History and Physical was ?performed, and patient medications and allergies ?were reviewed. The patient's tolerance of previous ?anesthesia was also reviewed. The risks and benefits ?of the procedure and the sedation options and risks ?were discussed with the patient. All questions were ?answered, and informed consent was obtained. Prior ?Anticoagulants: The patient has taken no previous ?anticoagulant or antiplatelet agents. ASA Grade ?Assessment: II - A patient with mild systemic ?disease. After reviewing the risks and benefits, the ?patient was deemed in satisfactory condition to ?undergo the procedure. ?After I obtained informed consent, the scope was ?passed under direct vision. Throughout the ?procedure, the patient's blood pressure, pulse, and ?oxygen saturations were monitored continuously. The ?Colonoscope was introduced through the anus and ?advanced to the terminal ileum. The colonoscopy was ?performed without difficulty. The patient tolerated ?the procedure well. The quality of the bowel ?preparation was fair. The terminal ileum was ?photographed. Moderate Sedation: ? MAC anesthesia was administered by the anesthesia team. Findings: ? The perianal and digital rectal examinations were normal. ? Two sessile polyps were found in the recto-sigmoid colon. The polyps ? were 2 mm in size. These were biopsied with a cold forceps for ? histology. ? There was evidence of a prior end-to-end ileo-colonic anastomosis in ? the ascending colon. This was patent and was characterized by healthy ? appearing mucosa. The anastomosis was traversed. ? The chip-terminal ileum contained a few scattered non-bleeding ? erosions. No stigmata of recent bleeding were seen. Biopsies were ? taken with a cold forceps for histology. ? The chip-terminal ileum contained a foreign body (fecolith 1cm). ? Biopsies were taken with a cold forceps in the entire colon for ? histology. Impression: ? - Preparation of the colon was fair. ?- Two 2 mm polyps at the recto-sigmoid colon. ?Biopsied. ?- Patent end-to-end ileo-colonic anastomosis, ?characterized by healthy appearing mucosa. ?- A few erosions in the chip-terminal ileum. Biopsied. ?- Presence of ileal foreign body. ?- Biopsies were taken with a cold forceps for ?histology in the entire colon. Estimated Blood Loss: Estimated blood loss: none. Recommendation: ? - Return patient to hospital tom for ongoing care. ?- Resume previous diet. ?- Continue present medications. ?- Await pathology results. ?- Patient has a contact number available for ?emergencies. The signs and symptoms of potential ?delayed complications were discussed with the ?patient. Return to normal activities tomorrow. ?Written discharge instructions were provided to the ?patient. ?- Repeat colonoscopy is recommended. The colonoscopy ?date will be determined after pathology results from ?today's exam become available for review. Procedure Code(s): ?--- Professional --- ?77732, Colonoscopy, flexible; with biopsy, single or ?multiple CPT copyright 2019 [place] [employer]. All rights reserved. Attending Participation: ? I was present and participated during the entire procedure, including ? non-boyer portions. Scope In: 7:54:54 AM Scope Out: 8:48:55 AM MD La Alberto MD 12/15/2020 8:57:20 AM This report has been signed electronically by La Zazueta MD Number of Addenda: 0 Note Initiated On: 12/15/2020 7:19 AMDIGESTIVE DISEASE INSTITUTEAnatomical Region LateralityModalityOtherSpecimen (Source)Anatomical Location / Laterality Collection Method / VolumeCollection TimeReceived Time12/15/2020 7:19 AM EDT Narrative Authorizing ProviderResult TypeResult StatusRajacy Jackson MDDIGESTIVE DISEASEFinal Result * HEP REMOTE PANEL BL (12/12/2020 10:19 PM EDT)ComponentValueRef RangeTest MethodAnalysis TimePerformed AtPathologist SignatureHep B Core Ab, Total TcucfhzkFauhxpiu66/20/2021 11:17 AM EDTCleveland Clinic LaboratoriesHep C Antibody HPNzvtwgwrQwoxjong81/20/2021 11:18 AM EDTCleveland Clinic OskckksszwnyABkQbDeoluqtiVfyubizi44/20/2021 11:18 AM EDTCleveland Clinic LaboratoriesHep B Surface Ab, GrrtPpkmypetFklkgpqq08/20/2021 11:18 AM EDT [facility] LaboratoriesComment:NEGATIVESpecimen (Source)Anatomical Location / LateralityCollection Method / VolumeCollection TimeReceived Time BloodBLOOD SPECIMEN / Zezvafs7312/12/2020 10:19 PM EDT12/12/2020 10:20 PM EDT Narrative Authorizing ProviderResult TypeResult StatusRajacy Jackson MDLABORATORYFinal ResultPerforming OrganizationAddressCity/State/ZIP CodePhone Number [facility] [address] [place] [address] [facility] [address] [place] [address] from Last 3 Months or Most Recently Relevant to Health Maintenance Insurance Care Teams Team MemberRelationshipSpecialtyStart DateEnd Date Essie Ryan CNP PCP - GeneralFamily Medicine07/22/16 Adán Torres DO Obstetrics07/22/16 Alexis Saenz II, MD [address] [place] [address] ReferringOrthopedics12/13/21 Angel Delgado DO [address] [place] [address] ReferringOrthopedics03/08/24
--- OUTSIDE RECORDS SUMMARY | 2025-04-17 08:24 | XMS_ITS | Clinical Summary ---
Author Organization [facility] tem Address [facility] [id number] [address] [place] [address] Care Team Providers Care Routing Clerk Name Role Phone Fariba Dudley LAY-TAPE KELLER OPERATOR Primary Care Provider [phone] Allergies Active AllergyReactionsCriticalityNoted DateCommentsPenicillinsFeverLow 10/03/2018 As a child Medications * This document contains information received from the source organization and may not represent a complete record from that organization. MedicationSigDispense QuantityRefillsLast FilledStart DateEnd DateStatus omeprazole (PriLOSEC) 40 mg capsule Indications:gastroesophageal reflux diseaseTake 1 capsule (40 mg total) by mouth nightly Indications: gastroesophageal reflux disease. GERD Verified discount drug martActive cetirizine (ZyrTEC) 5 mg tablet Take 1 tablet (5 mg total) by mouth as needed for allergies.Active busPIRone (BUSPAR) 15 mg tablet Indications:generalized anxiety disorderTake 0.5 tablets (7.5 mg total) by mouth as needed (anxiety) Indications: repeated episodes of anxiety.Active atorvastatin (LIPITOR) 10 mg tablet Indications:hypercholesterolemiaTake 1 tablet (10 mg total) by mouth nightly Indications: high cholesterol.04/22/2023ctive meloxicam (MOBIC) 15 mg tablet Indications:Chronic right hip paintake 1 tablet by mouth every morning 30 tablet ctive ARIPiprazole (ABILIFY) 30 mg tablet Indications:major depressive disorder treatment adjunctTake 1 tablet (30 mg total) by mouth nightly Indications: additional treatment for major depressive disorder.Active Active Problems ProblemNoted DateDiagnosed DateOSA (obstructive sleep apnea)05/09/2024 Obstructive sleep apnea04/19/2024hronic right hip pain08/21/2023Lumbar uawljmmmmpozw82/08/2023ipolar disorder, curr episode mixed, severe, with psychotic nzeofaxd08/24/2018 Encounters DateTypeDepartmentCare NjetEpytauipoxe59/24/2025 11:30 AM EDT - 03/19/2025 11:59 PM EDTHospital Encounter [facility] [address] [place] [address] Chest pressure; Left arm numbness Discharge Disposition: Home03/19/2025Travelfrom Last 3 Months Immunizations No known immunizations Family History Medical HistoryRelationNameCommentsNo Known ProblemsBrotherNo Known Problems CousinNo Known ProblemsFatherNo Known ProblemsMaternal AuntNo Known Problems Maternal GrandfatherNo Known ProblemsMaternal GrandmotherNo Known Problems Maternal UncleNo Known ProblemsMotherNo Known ProblemsPaternal AuntNo Known ProblemsPaternal GrandfatherNo Known ProblemsPaternal GrandmotherNo Known ProblemsPaternal UncleNo Known ProblemsSisterADD / ADHDNeg HxAlcohol abuseNeg Hx Anesthesia problemsNeg HxAnxiety disorderNeg HxBipolar disorderNeg HxDementiaNeg HxDepressionNeg HxDrug abuseNeg HxOCDNeg HxParanoid behaviorNeg HxSchizophrenia Neg HxSeizuresNeg HxSelf-Injurious BehaviorNeg HxSuicide AttemptsNeg HxRelation NameStatusCommentsBrotherCousinFatherMaternal AuntMaternal GrandfatherMaternal GrandmotherMaternal UncleMotherPaternal AuntPaternal GrandfatherPaternal GrandmotherPaternal UncleSister Social History Tobacco UseTypesPacks/DayYears UsedDateSmoking Tobacco: NeverPassive Smoke Exposure: NeverSmokeless Tobacco: Never Tobacco Cessation:Counseling Given: Not Answered Alcohol UseStandard Drinks/WeekCommentsNo0 (1 standard drink = 0.6 oz pure alcohol)ChildcareAnswerDate XjqdxykgNowdjgidxNcbxqjz29/12/2019EmploymentAnswer Date OezwlfszHgmveslrcdWruklxj12/12/2019Hunger ScreeningAnswerDate Recorded Within the past 12 months we worried whether our food would run out before we got money to buy more.Never True07/23/2024Within the past 12 months the food we bought just didn't last and we didn't have money to get more.Never True 07/23/2024Purpose - LifeAnswerDate RecordedPurpose and direction in lifeUnknown 1CommentsNoSex and Gender InformationValueDate RecordedSex Assigned at BirthNot on fileLegal MwyRmzuaa77/06/2015 11:26 AM EDTGender IdentityNot on fileSexual OrientationNot on file Last Filed Vital Signs Vital SignReadingTime TakenCommentsBlood Zfsztsns686/80008/22/2024 5:10 PM EST Suxjy279908/22/2024 5:07 PM DPZDgdibvjgksj88.2 ??C (97.2 ??F)09/06/2024 8:22 AM EDTRespiratory Vhyc099708/22/2024 5:10 PM ESTOxygen Lrtsmcbysq57%08/22/2024 5:10 PM ESTInhaled Oxygen Concentration--Rkfjdj43.7 kg (191 lb 3.2 oz)09/06/2024 8:22 AM JLFJdbomo723.4 cm (5')09/06/2024 8:22 AM EDTBody Mass Index37.34009/06/2024 8:22 AM EDT Plan of Treatment Health MaintenanceDue DateLast DoneCommentsDepression Jezhsaiqx51/26/1988Adult BMI Follow Up Plan1994DTaP,Tdap and Td Vaccines (1 - Tdap)1995 Influenza Wfkfudp14/01/2012Tobacco Tderhhwns77dult BMI Obxutpuse14 Medical Devices ImplantedTypeAreaManufacturerDevice IdentifierShelf Expiration DateModel / Serial / LotGenerator Nrs - [id number] - [id number] Implanted:Qty: 1 on 08/22/2024 by [facility]evin [facility]quivel [facility]GeneratorRight: ChestINSPIRE MEDICAL SYSTEMS [id number] / [id number] / NALead Ns Respiratory - [id number] - [id number] Implanted:Qty: 1 on 08/22/2024 by Tevin Esquivel MD at [facility]Implant LeadRight: ChestINSPIRE MEDICAL SYSTEMS INC03/15/[id number] / [id number] / NALead Nrstm Inspr 3 Elect Cuf Tnl Arnoldo Strl Lf - [id number] - [id number] Implanted:Qty: 1 on 08/22/2024 by Tevin Esquivel MD at [facility] CENTERNeuro StimulatorRight: NeckINSPIRE MEDICAL SYSTEMS INC10/06/[id number] / [id number] / NA Procedures Procedure NamePriorityDate/TimeAssociated DiagnosisCommentsECG 12-LEADRoutine 03/19/2025 11:29 AM EDT Chest pressure Left arm numbness from Last 3 Months Results * ECG 12 lead (03/19/2025 11:29 AM EDT)Specimen (Source)Anatomical Location / LateralityCollection Method / VolumeCollection TimeReceived Time03/19/2025 11:29 AM EDT Narrative TRACEMASTERVUE - 03/19/2025 11:38 AM EDT Authorizing ProviderResult TypeResult StatusBreann [facility] [employer] AX CONSULTANT-CNPECG ORDERABLES Final ResultPerforming OrganizationAddressCity/State/ZIP CodePhone Number TRACEMASTERVUE from Last 3 Months Insurance Care Teams Team MemberRelationshipSpecialtyStart DateEnd Date Fariba Dudley APRN-NIURKA [address] [place] [address] PCP - GeneralNurse Practitioner03/19/25
--- OUTSIDE RECORDS SUMMARY | 2025-04-17 08:24 | XMS_ITS | Clinical Summary ---
Author Organization [facility] Address [address] [place] [address] Care Team Providers Care Rail Crew Member Name Role Phone Essie Ryan MD Primary Care Provider [phone] Allergies Active AllergyReactionsCriticalityNoted DateCommentsPenicillinsOther,Unknown Jcfebb5206/13/2014 As a child Medications MedicationSigDispense QuantityRefillsLast FilledStart DateEnd DateStatus omeprazole (PriLOSEC) [address] capsule Take 40 mg by mouth in the morning.09/20/2022ctive busPIRone (Buspar) 7.5 mg tablet Take 7.5 mg by mouth twice a day.05/29/2023ctive cetirizine (ZyrTEC) 10 mg tablet Take 10 mg by mouth if needed.08/17/2023ctive ibuprofen 800 mg tablet Take 800 mg by mouth every 6 (six) hours if needed.02/02/2022ctive meloxicam (Mobic) 15 mg tablet Take 15 mg by mouth in the morning.12/09/2021ctive tamsulosin (Flomax) 0.4 mg 24 hr capsule Take 1 tablet by mouth if needed.06/09/2024ctive dilTIAZem CD (Cardizem CD) 120 mg 24 hr capsule Indications:Benign hypertensive heart disease without heart failure,Palpitations ,PAC (premature atrial contraction),PVC (premature ventricular contraction)Take 1 capsule (120 mg) by mouth in the morning. 30 capsule 1104//852690/6Active Additional Information Patient taking differently:120 mg oralAs needed, Reported on 03/31/2025 atorvastatin (Lipitor) 40 mg tablet Indications:Mixed hyperlipidemiaTake 1 tablet (40 mg) by mouth in the morning. 504/ctive Additional Information Patient taking differently:40 mg oralAs needed, Reported on 03/31/2025 ARIPiprazole (Abilify) 30 mg tablet Take 30 mg by mouth in the morning.Active losartan (Cozaar) 100 mg tablet Indications:Primary hypertensionTake 1 tablet (100 mg) by mouth in the morning. 90 tablet 305//578466/6Active Additional Information Patient taking differently:100 mg oralAs needed, Reported on 03/31/2025 aspirin 81 mg chewable tablet Indications:Other chest painChew 1 tablet (81 mg) in the morning. 90 tablet 31051ctiveHospital, Clinic, or Other Facility Administered MedicationOrdered DoseRouteFrequencyStart DateEnd DateStatus lidocaine (PF) (Xylocaine) 10 mg/mL (1 %) injection 30 mg Indications:Hip pain, right30 nrXXsrHvob87/25/03363203/20/2025Ended triamcinolone acetonide (Kenalog-10) (Kenalog) injection 20 mg Indications:Hip pain, right20 rfZIgeVllq11/25/048019/Ended Active Problems ProblemNoted DateDiagnosed DateGreater trochanteric bursitis of right hip 03/30/2025Pain due to total hip rlzjiugckjr12/05/3021Nioujrbjjducm90/01/2025 Uilduziuokpk70/22/2025Elevated glucose level01/01/2025Primary hypertension 01/01/2025Neurostimulator device in situ10/30/2024Osteophyte of right hip 10/03/2024Other bursal cyst, right hip10/03/2024Degeneration of lumbar intervertebral disc10/03/2024Dizziness and fenqbyque87/05/2025S/P total right hip vlbmmmyfnevd62/06/2025Needs flu shot04/10/2024Median nerve neuritis 02/29/2024 Overview (03/06/2024): Last Assessment & Plan: Cont nsaid Trial cock up splint Recheck in 6 weeks Last Assessment & Plan: Continue NSAID, get a cock up splint Fu in 6 weeks Contracture, left ankle01/30/2024ain of left heel10/25/2023 Overview (02/20/2024): Last Assessment & Plan: Left [...] and refer to Podiatry. Herpes zoster without rudkgsxtoxsr22/04/2024 Overview (02/20/2024): Last Assessment & Plan: Off work, may RTW 10/04/23 Add antivirals and steroids If ANY eye symptoms occur go to ER She denies facial NT , she is able to smell and taste, she also does not have any acute pain Advised to stay away from those who are immune suppressed, and not vaccinated for varicella (has grandchildren) Kidney vmfkgw01Nocturia/8259Refucfk01/30/2024 08/29/2023Generalized anxiety budeuphw55/30/2024reast cancer screening Fluid level behind tympanic membrane of right ear07/13/2023 08/29/2023 Overview (08/29/2023): Last Assessment & Plan: Persistent over 6-8 weeks, will refer to ENT Timmis Chronic xncixeuq52/10/2023 Overview (08/29/2023): Last Assessment & Plan: Is not compliant with nasal steroid Needs to use this URI, acute/10/2023Lumbar bjalqiyjzvurw10/08/202303/10/2023Thyroid /rthritis of right hip/10/2023Multiple thyroid tjpijlb40/10/2023Sensorineural hearing loss, bilateral /ipolar /16/2023hronic GERD11/08/2022ERD (gastroesophageal reflux disease)11/08/2022rohn's disease of intestine 11/08/2022 Overview (11/08/2022): Last [...] [facility] staff Dr. Yong Rodriguez Flank pain11/08/2022ross iyaupiqbw88/16/8679Kbsux24/16/2023AH (pulmonary artery hypertension)11/08/2022ulmonary HTN11/08/2022 Assessment & Plan (03/06/2024 12:24 PM EDT): Currently stable and controlled and she is going for pulmonary appt today Assessment & Plan (08/29/2023 12:58 PM EST): Stable no concerning symptoms COVID-1908///ipolar disease, bblktvu8912/14/2020nterolith of small bfpsqgiew82/21/2021Mixed rfvbigmuglnlur97/21/2021 Assessment & Plan (03/06/2024 12:22 PM EDT): [...] LFT in 2-3 months Bipolar disorder, curr episode mixed, severe, with psychotic vzfogcop62/24/2018 Bipolar 1 disorder, depressed, full qexgqimnk99/24/2018OSA (obstructive sleep apnea)11/25/2016 Assessment & Plan (08/29/2023 1:04 PM EST): Pt to f/U with pulmonology for further evaluation and mangement- she states she has been unable to wear Cpap and would like to see about Inspire implant. Crohn's disease without /01/2017Disorder of lung04/05/2013Pleurisy 04/05/20134415Mbowxqo65/26/2012Chest pain02/09/2012 Assessment & Plan (03/06/2024 12:24 PM EDT): Currently resolved Crohn's disease of small and large gbfbojcslv90/28/2012Crohn's disease of both small and large intestine without rxkkdlmfvkggo48/28/2012 Overview (02/20/2024): Last Assessment & Plan: Continue to monitor GI Resolved Problems ProblemNoted DateDiagnosed DateResolved DateSVD (spontaneous vaginal delivery) Encounters DateTypeDepartmentCare PogfNnxnpxnrefn06/06/2025 3:15 PM EDTOffice Visit [facility] [address] [place] [address] Milo Moran MD Other chest pain (Primary Dx); Primary hypertension; Mixed hyperlipidemia; PAC (premature atrial contraction); PVC (premature ventricular contraction)03/20/2025 1:03 PM EDT - 03/20/2025 11:59 PM EDTHospital Encounter [facility] [address] [place] [address] [place] [phone] Discharge Disposition: Home or Self Care (01)03/20/2025 1:00 PM EDTOffice Visit [facility] [address] [place] [address] [place] [address] Bonifacio Cisneros MD Greater trochanteric bursitis of right hip (Primary Dx); Hip pain, right; Pain due to total hip replacement, initial encounterfrom Last 3 Months Immunizations ImmunizationAdministration DatesNext DueInfluenza Whole05/03/2012 Family History Medical HistoryRelationNameCommentsAnginaFatherCharlieAsthmaFatherCharlie Coronary artery diseaseFatherCharlieHeart diseaseFatherCharlieCancerMotherSharon RelationNameStatusCommentsFatherCharlieAliveMotherSharonAlive Social History Tobacco UseTypesPacks/DayYears UsedDateSmoking Tobacco: NeverSmokeless Tobacco: Never Tobacco Cessation:Counseling Given: Not Answered Alcohol UseStandard Drinks/WeekCommentsNever0 (1 standard drink = 0.6 oz pure alcohol)Humiliation, Afraid, Rape, and Kick questionnaireAnswerDate Recorded Within the last year, have you been afraid of your partner or ex-partner?No 03/20/2025Emotionally AbusedNot on file03/20/2025Physically AbusedNot on file 03/20/2025Sexually AbusedNot on file03/20/2025PHQ-2AnswerDate RecordedPatient Health Questionnaire-2 Epcax312CommentsUnknownSex and Gender InformationValueDate RecordedSex Assigned at DjgheCerrec58/25/2025 12:08 PM EDT Legal KpbQlrukj70/29/2022 9:22 PM EDTGender JwxdufpkQfodst15/25/2025 12:08 PM EDTSexual OrientationChoose not to /25/2025 12:08 PM EDT Last Filed Vital Signs Vital SignReadingTime TakenCommentsBlood Ulxeoisi739/9010 4:19 PM EDT Znrjb0231 4:19 PM EDTTemperature--Respiratory Oxvt6880 1:52 PM EDTOxygen Gtdfftmlef950%03/31/2025 4:19 PM EDTInhaled Oxygen Concentration-- [place]93.1 kg (203 lb)03/31/2025 4:19 PM MHFPzfczc580.4 cm (5')03/31/2025 4:19 PM EDTBody Mass Index39.6503/31/2025 4:19 PM EDT Plan of Treatment DateTypeDepartmentCare Team (Latest Contact Info)Hybqzqdnles09/21/2025 11:30 AM ESTOffice Visit [facility] [place] [address] [place] [address] Milo Moran MD [address] [facility] [place] [address] Health MaintenanceDue DateLast DoneCommentsCT Iklidtxdntwj1976FIT-DNA 1976FIT1976FOBT1976 7905Tvlbgyygpupbs1976Hepatitis B Vaccines (1 of 3 - 19+ 3-dose series)1995Pap Smear1997Adult Vrlznmt8306/20/1998 Cervical Cancer Aflgjetnq08/26/2006HPV/Nxihij3906/20/20062234Fqqxrhlra34/26/2016COVID- 19 Vaccine (1 - season)2025Influenza Vaccine (#1)2025 05/03/2012Depression Bjpvqniiz86Zoster Vaccines (1 of 2) 06/20/20267873Ehwzzdwaary60/22/203106/olorectal Cancer Yiykawtlu55/22/2031 HIB VaccinesAged OutNo longer eligible based on patient's age to complete this topicHPV VaccinesAged OutNo longer eligible based on patient's age to complete this topicIPV VaccinesAged OutNo longer eligible based on patient's age to complete this topicMeningococcal B VaccineAged OutNo longer eligible based on patient's age to complete this topicMeningococcal VaccineAged OutNo longer eligible based on patient's age to complete this topicPneumococcal Vaccine: Pediatrics (0 to 5 Years) and At-Risk Patients (6 to 64 Years)Aged OutNo longer eligible based on patient's age to complete this topicRotavirus VaccinesAged Out No longer eligible based on patient's age to complete this topic Procedures Procedure NamePriorityDate/TimeAssociated DiagnosisCommentsECG 12 LEAD UNIT UBZOAQIWZGfnmkpx87/06/2025 4:58 PM EDT Other chest pain OK ARTHROCENTESIS ASPIR&/INJ MAJOR JT/BURSA W/O JSUztxwvp48/25/2025 6:09 PM EDT Hip pain, right XR HIP 2 OR 3 VW BXGQHAfuxqgw61/25/2025 1:14 PM EDT Hip pain, right from Last 3 Months Results * ECG 12 lead unit performed (03/31/2025 4:58 PM EDT)Specimen (Source)Anatomical Location / LateralityCollection Method / VolumeCollection TimeReceived Time Narrative Authorizing ProviderResult TypeResult StatusGeorge Dean FELIXECG ORDERABLES Final Result * OK ARTHROCENTESIS ASPIR&/INJ MAJOR JT/BURSA W/O US (03/20/2025 6:09 PM EDT) Narrative Bonifacio Cisneros MD - 03/20/2025 6:09 PM EDT Bonifacio Cisneros MD 03/30/2025 3:31 PM Large Joint: R greater trochanteric bursa on 03/20/2025 6:09 PM Indications: pain Details: 20 G needle, lateral approach Outcome: tolerated well, no immediate complications Verbal consent was obtained from the patient. We discussed Risk of infection , bleeding, elevated blood sugar level and persistence of pain. The injection site was prepped using a chlora prep stick, we injected 3 ml of 1 % lidocaine and 2 ml of 10 mg Kenalog into the Right greater trochanteric bursa ??The procedure completed without complications and patient tolerated the procedure well. I was personally present for the entire procedure. Procedure, treatment alternatives, risks and benefits explained, specific risks discussed. Immediately prior to procedure a time out was called to verify the correct patient, procedure, equipment, operations support manager and site/side marked as required. Patient was prepped and draped in the usual sterile fashion. Authorizing ProviderResult TypeResult StatusMaged Amelia [facility]/BEDSIDE ORDERABLESFinal Result * XR hip right 2 or 3 views (03/20/2025 1:14 PM EDT)Anatomical RegionLaterality ModalityLower Extremities, HipRightComputed RadiographySpecimen (Source) Anatomical Location / LateralityCollection Method / VolumeCollection Time Received Time03/21/2025 7:00 AM EDT Impressions 03/21/2025 7:03 AM EDT * Status post right hip arthroplasty with no hardware complications. * Minimal left hip joint space narrowing. Electronically signed: Gerson Magaña MD. Narrative 03/21/2025 7:03 AM EDT AP VIEW PELVIS AND 2 VIEWS RIGHT HIP HISTORY: Right hip discomfort COMPARISON: None Procedure Note Gerson Magaña MD - 03/21/2025 AP VIEW PELVIS AND 2 VIEWS RIGHT HIP HISTORY: Right hip discomfort COMPARISON: None IMPRESSION: *Status post right hip arthroplasty with no hardware complications. *Minimal left hip joint space narrowing. Electronically signed: Gerson Magaña MD. Authorizing ProviderResult TypeResult StatusMaged Amelia WATERMAN XR PROCEDURESFinal Result from Last 3 Months Insurance Care Teams Team MemberRelationshipSpecialtyStart DateEnd Date Essie Ryan MD [address] [place] [address] [facility]08/29/23
--- OUTSIDE RECORDS SUMMARY | 2025-04-17 08:29 | XMS_ITS | CCD ---
Author Organization [facility] Care Team Providers Care Train Director Name Role Phone PHYSICIAN, DEFAULT Unavailable Unavailable PHYSICIAN, DEFAULT Unavailable Unavailable AICHHOLZ, PAULINE Unavailable Unavailable PHYSICIAN, DEFAULT Unavailable Unavailable PHYSICIAN, DEFAULT Unavailable Unavailable AICHHOLZ, PAULINE Unavailable Unavailable PHYSICIAN, DEFAULT Unavailable Unavailable PHYSICIAN, DEFAULT Unavailable Unavailable SHELBY PAULINE Unavailable Unavailable Alexis Saenz II Unavailable Aicmatholz Pauline BAH Primary Care Provider Adán Torres Unavailable Dany ARDON MD, Robert M Unavailable Adán Torres DO Unavailable [phone] PAULINE RYAN Primary Care Physician Aicholz Pauline BAH Primary Care Provider [phone] Adán Torres DO Unavailable Dany ARDON MD, Robert M Unavailable CAN MONROE Attending Unavailable CAN MONROE Consulting Unavailable AICHHOLKamila, DIRECTOR OF PERSONNEL PAULINE Primary Care Unavailable CAN MONROE Admitting Unavailable ANDREW ., DR MARKO Stafford Admitting Unavailable ANDREW ., DR MARKO Stafford Attending Unavailable AICHHOLKamila, DIRECTOR OF PERSONNEL PAULINE Primary Care Unavailable ARTURO VANEGAS Consulting Unavailable ANDREW ., DR MARKO Stafford Attending Unavailable MORALES ., DR MARKO Stafford Consulting Unavailable AICHHOLKamila, DIRECTOR OF PERSONNEL PAULINE Primary Care Unavailable ANDREW ., DR MARKO Stafford Admitting Unavailable ADRIANNA JIMENEZ Attending Unavailable ADRIANNA JIMENEZ Consulting Unavailable ADRIANNA JIMENEZ B Admitting Unavailable AICHHOLZ, DIRECTOR OF PERSONNEL PAULINE Primary Care Unavailable PAULETTE PHIPPS Consulting Unavailable AICHHOLZ, [facility] Primary Care Unavailable GARCIA ., DR BAILEY Attending Unavailable GARCIA ., DR BAILEY Consulting Unavailable GARCIA ., DR BAILEY Admitting Unavailable WEST, DR PAULETTE León Consulting Unavailable MORALES ., DR MARKO Stafford Admitting Unavailable MORALES ., DR MARKO Stafford Attending Unavailable MORALES ., DR MARKO Stafford Consulting Unavailable AICHOL, [facility] Primary Care Unavailable DELANEY ., ARTURO Consulting Unavailable MORALES ., DR MARKO Stafford Admitting Unavailable MORALES ., DR MARKO Stafford Attending Unavailable AICHHOLZ, [facility] Primary Care Unavailable YOBANY ., DR RASMUSSEN Attending Unavailable AICHHOLZ, [facility] PAULINE Primary Care Unavailable YOBANY ., DR RASMUSSEN Admitting Unavailable WEST, DR PAULETTE León Consulting Unavailable YOBANY ., DR RASMUSSEN Consulting Unavailable AICHOLZ, [facility] Primary Care Unavailable GARCIA ., DR BAILEY Admitting Unavailable GARCIA ., DR BAILEY Attending Unavailable GARCIA ., DR BAILEY Consulting Unavailable ZIEBER, DR PREET Palafox Consulting Unavailable TIMMIS, DR RED Attending Unavailable TIMMIS, DR RED Consulting Unavailable TIMMIS, DR RED Admitting Unavailable AICHHOLZ, [facility] Primary Care Unavailable ZIEBER, DR PREET Palafox Consulting Unavailable TIMMIS, DR RED Attending Unavailable TIMMIS, DR RED Consulting Unavailable TIMMIS, DR RED Admitting Unavailable AICHHOLZ, [facility] Primary Care Unavailable ZIEBER, DR PREET Palafox Consulting Unavailable TIMMIS, DR RED Attending Unavailable TIMMIS, DR RED Consulting Unavailable AICHHOLZ, [facility] Primary Care Unavailable TIMMIS, DR RED Admitting Unavailable WEST, DR PAULETTE León Consulting Unavailable AICHHOLZ, [facility] Primary Care Unavailable GARCIA ., DR BAILEY Attending Unavailable GARCIA ., DR BAILEY Consulting Unavailable GARCIA ., DR BAILEY Admitting Unavailable ZIEBER, DR PREET Palafox Consulting Unavailable LAKSHMIPATHY ., NARENDRANMONA Attending Marleni vailable AICHHOLZ, [facility] PAULINE Primary Care Unavailable LAKSHMIPATHY ., NARANTONIO Admitting Marleni vailable MORALES ., DR MARKO Stafford Admitting Unavailable MORALES ., DR MARKO Stafford Attending Unavailable MORALES ., DR MARKO Stafford Consulting Unavailable AICHHOLZ, [facility] Primary Care Unavailable DELANEY ., ARTURO Consulting Unavailable AICHHOLZ, DIRECTOR OF PERSONNEL PAULINE Primary Care Unavailable COLE, DR PAULETTE León Consulting Unavailable GARCIA ., DR BAILEY Attending Unavailable GARCIA ., DR BAILEY Admitting Unavailable AICHHOLZ, DIRECTOR OF PERSONNEL PAULINE Consulting Unavailable YOBANY ., DR RASMUSSEN Attending Unavailable YOBANY ., DR RASMUSSEN Consulting Unavailable AICHHOLZ, DIRECTOR OF PERSONNEL PAULINE Primary Care Unavailable YOBANY ., DR RASMUSSEN Admitting Unavailable AICHHOLZ, DIRECTOR OF PERSONNEL PAULINE Primary Care Unavailable AICHHOLZ, DIRECTOR OF PERSONNEL PAULINE Attending Unavailable AICHHOLZ, DIRECTOR OF PERSONNEL PAULINE Consulting Unavailable AICHHOLZ, DIRECTOR OF PERSONNEL PAULINE Admitting Unavailable DELANEY ., ARTURO Admitting Unavailable DELANEY ., ARTURO Attending Unavailable AICHHOLZ, DIRECTOR OF PERSONNEL PAULINE Primary Care Unavailable ZIEBER, DR PREET Palafox Consulting Unavailable DELANEY ., ARTURO Consulting Unavailable TIMMIS, DR RED Attending Unavailable TIMMIS, DR RED Consulting Unavailable TIMMIS, DR RED Admitting Unavailable AICHHOLZ, DIRECTOR OF PERSONNEL PAULINE Primary Care Unavailable ZIEBER, DR PREET Palafox Consulting Unavailable DIAB ., EDNA Attending Unavailable DIAB ., EDNA Admitting Unavailable MARKER ., DR JIMÉNEZ Consulting Unavailable AICHHOLZ, DIRECTOR OF PERSONNEL PAULINE Primary Care Unavailable DIAB ., EDNA Consulting Unavailable OWOYELE, MISTY Consulting Unavailable AICHHOLZ, DIRECTOR OF PERSONNEL PAULINE Primary Care Unavailable AICHHOLZ, DIRECTOR OF PERSONNEL PAULINE Attending Unavailable AICHHOLZ, DIRECTOR OF PERSONNEL PAULINE Consulting Unavailable AICHHOLZ, DIRECTOR OF PERSONNEL PAULINE Admitting Unavailable ZIEBER, DR PREET Palafox Consulting Unavailable MORALES ., DR MARKO Stafford Attending Unavailable MORALES ., DR MARKO Stafford Admitting Unavailable AICHHOLZ, DIRECTOR OF PERSONNEL PAULINE Primary Care Unavailable MIS, DR MCCARTHY Referring Unavailable GARCIA ., DR BAILEY Consulting Unavailable MORALES ., DR MARKO Stafford Consulting Unavailable Juliana Block Unavailable Aichholz DIRECTOR OF PERSONNEL, Pauline Fely Primary Care Provider Adán Torres DO Unavailable Dany ARDON MD, Alexis Cummins Unavailable Angel Delgado DO Unavailable Lakshmi FELIX, Yuriy Primary Care Provider [phone] [facility] LOG CHAIN FEEDER, Pauline Unavailable Aichholz LOG CHAIN FEEDER, Pauline Unavailable Yuriy Martins MD Primary Care Provider LOIS MCKEON Admitting Unavailable LOIS MCKEON Attending Unavailable AICHHOLZ, PAULINE FELY Primary Care Unavailable REGINE MTZ Consulting Unavailabl e Aichholz DRIER ATTENDANT-DIRECTOR OF PERSONNEL, Pauline J Primary Care Provider Aichholz DRIER ATTENDANT-DIRECTOR OF PERSONNEL, Pauline J Primary Care Provider AICHHOLZ, PAULINE J Referring Unavailable AICHHOLZ, PAULINE J Primary Care Unavailable TEVIN ROSSI Admitting Unavailable TEVIN ROSSI Attending Unavailable AICHHOLZ, PAULINE J Primary Care Unavailable LAYNE HOGUE Attending Unavailable AICHHOLZ, PAULINE J Primary Care Unavailable TEVIN ROSSI Referring Unavailable AICHHOLZ, PAULINE J Primary Care Unavailable TEVIN ROSSI Admitting Unavailable TEVIN ROSSI Attending Unavailable TEVIN ROSSI Referring Unavailable AICHHOLZ, PAULINE J Primary Care Unavailable TEVIN ROSSI Attending Unavailable AICHHOLZ, PAULINE J Referring Unavailable AICHHOLZ, PAULINE J Primary Care Unavailable TEVIN ROSSI Attending Unavailable AICHHOLZ, PAULINE J Referring Unavailable AICHHOLZ, PAULINE J Primary Care Unavailable TEVIN ROSSI Attending Unavailable AICHHOLZ, PAULINE J Referring Unavailable AICHHOLZ, PAULINE J Primary Care Unavailable Aichholz DRIER ATTENDANT-DIRECTOR OF PERSONNEL, Pauline J Primary Care Provider Paulette Warren MD Attending Provider [phone] Aichholz, Pauline J Primary Care Provider LOIS MCKEON Attending Unavailable AICHHOLZ, PAULINE FELY Primary Care Unavailable AICHHOLZ, PAULINE FELY Primary Care Unavailable LOIS MCKEON Attending Unavailable AICHHOLZ, PAULINE FELY Primary Care Unavailable MAYITO GIFFORD Referring Unavailable LOIS MCKEON Attending Unavailable AICHHOLZ, PAULINE FELY Primary Care Unavailable LOIS MCKEON Referring Unavailable AICHHOLZ, PAULINE FELY Primary Care Unavailable JOSE TEJEDA Referring Unavailable AICHHOLZ, PAULINE FELY Primary Care Unavailable LOIS MCKEON Referring Unavailable AICHHOLZ, PAULINE FELY Primary Care Unavailable MAJORS, LAXMI Primary Care Physician [phone] Lynn GARCIA Attending Unavailable OrAlecia tavares Attending Unavailable MAJORS, LAXMI Primary Care Unavailable Lynn GARCIA Attending Unavailable Lynn GARCIA Referring Unavailable Lynn GARCIA Attending Unavailable LESLIE JUNG Attending Unavailable Orzech, Alecia X Attending Unavailable MAJORS, LAXMI Primary Care Unavailable Aichholz LOG CHAIN FEEDER, Pauline Unavailable Mckenna Bishop MD Primary Care Provider Majors LOG CHAIN FEEDER, Laxmi Unavailable ADAN RYANA J Referring Unavailable AICHHOLZ, PAULINE J Primary Care Unavailable EDUARDO, SHANNONAZ Lisa Referring Unavailable MAJORS, LAXMI Referring Unavailable MAJORS, LAXMI Primary Care Unavailable AICHHOLZ, PAULINE Attending Unavailable AICHHOLZ, PAULINE Attending Unavailable AICHHOLZ, PAULINE Attending Unavailable MAJORS, LAXMI Attending Unavailable MAJORS, LAXMI Attending Unavailable MAJORS, LAXMI Referring Unavailable AICHHOLZ, PAULINE Attending Unavailable AICHHOLZ, PAULINE Attending Unavailable MAJORS, LAXMI Attending Unavailable EDUARDO, TRINH Attending Unavailable MOUKARBELMILO Attending Unavailable MOUKARBELMILO Attending Unavailable JONATHANESTEPHANIE FROST Referring Unavailable JONATHANESTEPHANIE FROST Attending Unavailable AICHHOLZ, PAULINE Referring Unavailable EDUARDO, TRINH Attending Unavailable CAN MONROE Attending Unavailable Allergies Allergy ClassificationReported Allergen(s)Allergy TypeDate of OnsetReaction(s) Facility (11 sources)Penicillins; Translations: [PENICILLINS]Drug allergy (disorder) 62-25-8376[facility] (3 sources)Penicillin VDrug AllergyEnglishCentral Other (20 sources)PenicillinsDrug Immkuka05-31-3405Oqwqtjx, [facility] (10 sources)History of - penicillin allergy (context-dependent category); Translations: [H/O: penicillin allergy][facility] (1 source)PenicillinDrug AllergyEnglishCentral Other (20 sources)PenicillinsDrug Jexfbexvyzq15-23-5083Zhjtn, UnknownNOMS Healthcare Work Phone: (1 source)PenicillinsPropensity to adverse reactions to oqoj74-08-4740Dndsw [facility] Medications Current Medications MedicationDrug Class(es)DatesSig (Normalized)Sig (Original)acetaminophen 325 mg oral tablet (16 sources)Start: 66-65-1947oymu 2 tablets by mouth every six hours as needed acetaminophen (TYLENOL) 325 mg tablet Take 2 tablets by mouth every 6 hours as needed. 40 tablet 09/22/2016 Activetake 1 tablet by mouth every four hours Tylenol 325 MG 1 tablet as needed Orally every 4 hrs ActiveComment on above:Take 2 tablets by mouth every 6 hours as needed.ARIPiprazole 30 mg oral tablet (20 sources)Atypical AntipsychoticStart: 27-32-1207iyiz 1 tablet by mouth once daily at bedtimeAripiprazole 30 mg tablet Active 30 MG PO Daily at bedtime January 15, 2025 12:00am Complies with drug therapyStart: 04-10-2024 End: 01-14-8957rtuw 1 tablet by mouth once dailyARIPiprazole (Abilify) 15 MG tablet Indications: Bipolar disorder, unspecified (HCC) Take 1 tablet (15 mg) by mouth Daily 30 tablet 3 01/01/2025 ActiveStart: 01-30-2024 End: 45-31-8423tqdm 1 tablet by mouth once dailyARIPiprazole (Abilify) 10 MG tablet Indications: Bipolar disorder, unspecified (CMS/HCC) Take 1 tablet (10 mg) by mouth Daily 30 tablet 1 02/29/2024 03/30/2024 Activetake 1 tablet by mouth once daily for depressionARIPiprazole (ABILIFY) 30 mg tablet Indications: major depressive disorder treatment adjunct Take 1tablet (30 mg total) by mouth nightly Indications: additional treatment for major depressive disorder. Active aspirin 81 mg delayed release oral tablet (2 sources)Platelet Aggregation Inhibitor, Nonsteroidal Anti-inflammatory Drug Start: 84-13-8721uxgk 1 tablet by mouth twice dailyaspirin, enteric coated (ECOTRIN LOW STRENGTH) 81 mg EC tablet Take 1 tablet by mouth two times a day for 28 days. 56 tablet 06/30/2024 Activeatorvastatin (20 sources)HMG-CoA Reductase InhibitorStart: 39-76-9419vkgtnvdamqqx Active PO January 15, 2025 12:00am Complies with drug therapyStart: 03-06-2024 End: 39-13-7186qywe 1 tablet by mouth in the eveningatorvastatin (Lipitor) 80 MG tablet Indications: Mixed hyperlipidemia Take 1 tablet (80 mg) by mouth in the evening 30 tablet 3 01/01/2025 ActiveStart: 19-08-1503nhfgygmjmitr 10 mg Tab Refills(s) 0 Start Date: 05/29/23 Status: Ordered Repeat number: 1Start: 10-13-2020 End: 93-72-3085binz 1 tablet by mouth once dailyatorvastatin (LIPITOR) 20 mg tablet Take 20 mg by mouth once daily. 10/13/2020 06/05/2024 Discontinued End: 05-60-2961nwfi 1 tablet by mouth in the eveningatorvastatin (Lipitor) 40 MG tablet Indications: Hyperlipidemia Take 40 mg by mouth in the evening 04/10/2024 Discontinued (Therapy completed)Comment on above:Take 20 mg by mouth once daily. busPIRone hydrochloride 15 mg oral tablet (20 sources)Start: 88-42-4653azto 1 tablet by mouth twice daily as needed Buspirone 15 mg tablet Active 15 MG PO Twice daily as needed January 15, 2025 12:00am Complies with drug therapyStart: 08-28-2024 End: 66-74-7793ylnw 0.5 tablet by mouth in the morningbusPIRone (Buspar) 15 MG tablet Indications: Anxiety Take 0.5 tablets (7.5 mg) by mouth in the morning and 0.5 tablets (7.5 mg) before bedtime. 60 tablet 3 01/01/2025 ActiveStart: 19-61-6928bsxFRXgjz 7.5 mg oral tablet Refills(s) 0 Start Date: 05/29/23 Status: Ordered Repeat number: 1 End: 30-39-6799ayft 7.5 mg by mouth in the morningbusPIRone (Buspar) 15 MG tablet Take 7.5 mg by mouth in the morning and 7.5 mg in the evening. 08/28/2024 Discontinued (Reorder)cetirizine hydrochloride 10 mg oral tablet (20 sources)Histamine-1 Receptor AntagonistStart: 08-17-2023 End: 24-97-8917isqw 1 tablet by mouth once dailycetirizine (ZyrTEC) 10 MG tablet Indications: Chronic rhinitis Take 1 tablet (10 mg) by mouth Daily30 tablet 5 02/29/2024 03/30/2024 Activecetirizine (ZyrTEC) 5 mg tablet Take 1 tablet (5 mg total) by mouth as needed for allergies. ActiveComment on above:Take 10 mg by mouth once daily.cyclobenzaprine hydrochloride 10 mg oral tablet (5 sources)Muscle RelaxantStart: 03-19-2025 End: 94-21-4845uznd 0.5 tablet by mouth three times daily as needed for muscle spasmscyclobenzaprine (Flexeril) 10 MG tablet Indications: Acute pain of left shoulder Take 0.5 tablets (5 mg) by mouth 3 (three) times a day as needed for muscle spasms for up to 5 days 8 tablet 03/19/2025 Icpjyf87 hr dilTIAZem hydrochloride 120 mg extended release oral capsule (16 sources)Calcium Channel BlockerStart: 10-03-2024 End: 34-93-1717ebsb 1 capsule by mouth in the morning, then take 1 capsule by mouth every twenty-four hoursdilTIAZem CD (Cardizem CD) 120 MG 24 hr capsule Take 120 mg by mouth in the morning. 10/03/2024 10/03/2025 Activedocusate sodium 100 mg oral capsule (2 sources)Start: 27-02-3074vwbc 1 capsule by mouth twice dailydocusate sodium (COLACE) 100 mg capsule Take 1 capsule by mouth two times a day. Take colace while taking narcotics to decrease your risk of constipation 60 capsule 06/30/2024 Activehydrocortisone 10 mg/ml rectal cream (8 sources)CorticosteroidStart: 51-34-5126mqlizjsmnilbhj 1 % cream Indications: Rash and nonspecific skin eruption Apply topically in the morning and before bedtime. 28 g 2 03/10/2025 Activelosartan potassium 100 mg oral tablet (18 sources)Angiotensin 2 Receptor BlockerStart: 11-11-2024 End: 97-06-9230woiy 1 tablet by mouth in the morninglosartan (Cozaar) 100 MG tablet Indications: Primary hypertension Take 1 tablet (100 mg) by mouth in the morning. 30 tablet 11 01/01/2025 01/01/2026 Activemeloxicam 15 mg oral tablet (20 sources)Nonsteroidal Anti-inflammatory DrugStart: 12-09-2021 End: 08-72-2542sbqj 1 tablet by mouth once dailymeloxicam (Mobic) 15 MG tablet Take 15 mg by mouth Daily 10/31/2024 Activenaloxone hydrochloride 40 mg/ml nasal spray (2 sources)Opioid AntagonistStart: 10-27-2776vzsegqsa 4 mg/actuation nasal spray (NARCAN) Use 1 spray in one nostril as needed for overdose. Mayrepeat every 2 to 3 min in alternating nostrils until medical assistance is available 2 Each 06/30/2024 ActiveAleve (9 sources)Nonsteroidal Anti-inflammatory DrugStart: 10-24-4038ruxz 1 mg by mouth every twelve hoursAleve mg, Oral, q12hr, Refills(s) 0 Start Date: 02/25/22 Status: Ordered Repeat number: 1Start: 26-20-6137ogbi 1 mg by mouth every twelve hoursAleve mg, Oral, q12hr, Refills(s) 0 Start Date: 02/25/22 Status: Ordered omeprazole 40 mg delayed release oral capsule (20 sources)Proton Pump InhibitorStart: 10-10-2023 End: 92-42-9285lkjl 1 capsule by mouth before mealtimeomeprazole (PriLOSEC) [address] capsule Indications: Gastroesophageal reflux disease, unspecified whether esophagitis present Take 1 capsule (40 mg) by mouth in the morning. Take before meals. 30 capsule 5 01/01/2025 ActiveStart: 76-90-1631Ufxbnken Oral, Daily, Refills(s) 0 Start Date: 12/23/10 Status: Ordered Repeat number: 1Start: 32-19-8908Rfhszwrc Oral, Daily, Refills(s) 0 Start Date: 12/23/10 Status: Ordered PriLOSEC 10 MG as directed Orally ActiveComment on above:Take 40 mg by mouth once daily.pantoprazole 20 mg delayed release oral tablet (2 sources)Proton Pump InhibitorStart: 39-54-0151eedo 1 tablet by mouth once dailypantoprazole DR (PROTONIX) 20 mg tablet Take 1 tablet by mouth once daily for 14 days. 14 tablet 06/30/2024 Activepolyethylene glycol 3350 648951 mg / potassium chloride 1480 mg / sodium bicarbonate 5720 mg / sodium chloride 41199 mg powder for oral solution (3 sources)Osmotic LaxativeStart: 72-71-1875BuLDIMQV [place] oral powder for reconstitution See Instructions, 1 EA, Refill(s) 0, See physician instructions prior to procedure., [id number], 155, cm, 11/24/22 13:47:00 EDT, Height/Length Dosing, 88.2, kg, 11/24/22 13:47:00 EDT, Weight Dosing Start Date: 11/28/22 Status: OrderedtraMADol hydrochloride 50 mg oral tablet (12 sources)Opioid AgonistStart: 81-67-5114boru 1 tablet by mouth every six hourstraMADol (Ultram) 50 MG tablet Take 50 mg by mouth every 6 (six) hours 02/19/2024 Active Completed/Discontinued Medications MedicationDrug Class(es)DatesSig (Normalized)Sig (Original)ambrisentan 10 mg oral tablet (8 sources)Endothelin Receptor Antagonist End: 42-77-3637aypo 10 mg by mouth once dailyambrisentan (LETAIRIS ORAL) Take 10 mg by mouth daily. 05/06/2024 Discontinued (Therapy completed)5 ml bupivacaine hydrochloride 5 mg/ml injection (1 source)Amide Local AnestheticStart: 12-31-2021 End: 91-86-2883kjdpeszdbjb (PF) 0.5 % (5 mg/mL) 5 mL injectionStart: 12-31-2021 End: 71-34-7772tbjuhtzvhqq (PF) 0.5 % (5 mg/mL) 5 mL injectioncarBAMazepine 200 mg oral tablet (18 sources)Mood Stabilizer End: 27-14-3448mixNLHzkzcwjm (TEGRETOL) 200 mg tablet Take 300 mg by mouth daily at bedtime. 06/05/2024 DiscontinuedComment on above:Take 300 mg by mouth daily at bedtime.ciprofloxacin 500 mg oral tablet (1 source)Quinolone AntimicrobialStart: 44-02-5788lwye 1 tablet by mouth once dailyCipro 500 mg Tab 500 mg = 1 tab(s), Oral, Daily, Take 1 tablet the day before the procedure and 1 tablet after the procedure, # 2 tab(s), Refills(s) 0, [facility]: [id number], 155, cm, 03/03/22 15:04:00 EDT, Height/Length Dosing, 90, kg, 02/25/22 10:22:00 EDT, .. Start Date: 03/03/22 Status: Ordered citalopram 20 mg oral tablet (18 sources)Serotonin Reuptake Inhibitor End: 03-11-2309dbci 1 tablet by mouth once dailycitalopram (CELEXA) 20 mg tablet Take 20 mg by mouth once daily. 06/05/2024 Discontinued End: 55-11-4804xcwr 1 tablet by mouth in the morningcitalopram (CeleXA) 40 mg tablet Take 1 tablet (40 mg total) by mouth in the morning. 05/06/2024 Dis continued (Therapy completed)Comment on above:Take 20 mg by mouth once daily. colchicine 0.6 mg oral tablet (8 sources) End: 69-58-4161ardt 1 tablet by mouth in the morningcolchicine (COLCRYS) 0.6 mg tablet Take 1 tablet (0.6 mg total) by mouth in the morning. Verified with [facility] . 05/06/2024 Discontinued (Therapy completed)1 ml dexamethasone phosphate 4 mg/ml injection (1 source)CorticosteroidStart: 12-31-2021 End: 77-92-3019jawRRWPEdwhhv sodium phosphate 4 mg injection (DECADRON)Start: 12-31-2021 End: 68-90-0013amjKFKXJvljjs sodium phosphate 4 mg injection (DECADRON)mupirocin 0.02 mg/mg topical ointment (4 sources)RNA Synthetase Inhibitor AntibacterialStart: 06-05-2024 End: 58-29-3234wbtjgvgxf (Bactroban) 2 % ointment apply 0.5 in with q-tip to each nostril TWICE DAILY (IN THE MORNING and IN THE EVENING) FOR 5 DAYS prior to and including day OF surgery 06/05/2024 08/28/2024 Discontinued (Therapy completed)pravastatin sodium 40 mg oral tablet (8 sources)HMG-CoA Reductase Inhibitor End: 52-74-5241mavl 1 tablet by mouth once dailypravastatin (PRAVACHOL) 40 mg tablet Indications: hyperlipidemia Take 1 tablet (40 mg total) by mouth nightly Indications: excessive fat in the blood. hyperlipidemia [facility] 05/06/2024 Discontinued (Therapy completed)sulfamethoxazole 800 mg / trimethoprim 160 mg oral tablet (3 sources)Dihydrofolate Reductase Inhibitor Antibacterial, Sulfonamide AntimicrobialStart: 06-09-2024 End: 73-69-0236jmql 1 tablet by mouth once in the morning, then take 1 tablet by mouth once at bedtimesulfamethoxazole-trimethoprim (Bactrim DS) 800-160 MG per tablet Take 1 tablet by mouth in the morning and 1 tablet before bedtime. 06/09/2024 08/28/2024 Discontinued (Therapy completed)tamsulosin hydrochloride 0.4 mg oral capsule (3 sources)alpha-Adrenergic BlockerStart: 06-09-2024 End: 65-43-0492wwsd 1 capsule by mouth once dailytamsulosin (Flomax) 0.4 MG 24 hr capsule Take by mouth Daily 06/09/2024 08/28/2024 Discontinued (Therapy completed) Problems Active Problems Problem ClassificationProblemDateDocumented DateEpisodic/Chronic Administrative/social admission (2 sources)First encounter by subject; Translations: [Persons encountering health services in other specified circumstances]45-81-8830XjfbgvdaHqgtlol disorders (20 sources)Anxiety disorder; Translations: [Anxiety]Onset: 262239-58-6937 ChronicCardiac dysrhythmias (4 sources)Atrial premature depolarization; Translations: [Ventricular premature depolarization]Onset: 10-93-3795NngdcefBrlncetxusqen of surgical procedures or medical care (1 source)Complication of ventilation qbaewha53-13-9078DyvvzxrlAkmznixf mellitus without complication (18 sources)Increased glucose level; Translations: [Other abnormal glucose] Onset: 605332-57-9794JpycmtobRbiomyevt of lipid metabolism (20 sources)Hyperlipidemia; Translations: [Other hyperlipidemia]Onset: 12-14-2020 Resolved: 071360-45-2509AmmkfkkXtfwiihmxz disorders (20 sources)Gastroesophageal reflux disease; Translations: [Gastro-esophageal reflux disease without esophagitis]Onset: 847512-89-0239DuspkomEthorafud hypertension (20 sources)Essential hypertension; Translations: [Essential (primary) hypertension]Onset: 211508-73-9020IjwwjjvSegtxplwurlfi symptoms and ill- defined conditions (20 sources)Lora hematuria; Translations: [Blood in urine]Onset: 04-26-2022 Resolved: 724957-30-4401LbakmwulLezucorkakkb with complications and secondary hypertension (2 sources)Hypertensive heart disease without heart failure; Translations: [Hypertensive heart disease withoutheart failure]Onset: 39-32-5184NxavlmfBaqb disorders (20 sources)Bipolar disorder; Translations: [Bipolar disorder, unspecified] Onset: 08-19-2017 Resolved: 415398-82-8378DxrscoiWcamqariajf chest pain (20 sources)Chest pain; Translations: [Chest pain, unspecified]Onset: 02-09-2012 Resolved: [id number]lvrkyxsjig (20 sources)Unilateral primary osteoarthritis, right hip; Translations: [Osteoarthritis of right hip joint]Onset: 106917-75-2788XbzrwqbMllxs acquired deformities (20 sources)Contracture of joint of left ankle; Translations: [Contracture, left ankle]Onset: 894794-19-0823SgwjtonFqtwt connective tissue disease (2 sources)History of repair of hip joint; Translations: [Presence of right artificial hip joint]27-17-0041OldxktzBlvse connective tissue disease (20 sources)History of total hip arthroplasty; Translations: [Presence of right artificial hip joint]Onset: 858080-10-0993VqwziktLgbpo connective tissue disease (1 source)Presence of right artificial hip joint; Translations: [Status post right hip replacement]Onset: 74-54-3616ZguihhrXmict connective tissue disease (3 sources)Trochanteric bursitis of right hip; Translations: [Trochanteric bursitis, right hip]EpisodicOther connective tissue disease (1 source)Gluteal tendinitis; Translations: [Unspecified disorder of synovium and tendon, right thigh]EpisodicOther diseases of kidney and ureters (1 source)Hydronephrosis; Translations: [Unspecified hydronephrosis]Onset: 57-03-9516FuwymmesWkqrh diseases of kidney and ureters (1 source)Hydronephrosis with renal and ureteral calculous obstruction; Translations: [HYDRONPHROS RENL AND URETRL CALCUL OBST]Onset: 65-86-4795Fxpicimo Other ear and sense organ disorders (20 sources)Sensorineural hearing loss, bilateral; Translations: [Sensorineural hearing loss, bilateral]Onset: 692630-36-5886BqvaayfKqoaw injuries and conditions due to external causes (1 source)Foreign body in colon, sequela; Translations: [FOREIGN BODY IN COLON SEQUELA]Onset: 56-23-6429NxziafokCylaj nervous system disorders (20 sources)Median nerve neuritis; Translations: [Other lesions of median nerve, left upper limb]Onset: 786144-88-2363UxfegxaZjbha nervous system disorders (20 sources)Chronic pain; Translations: [Other chronic pain]Onset: 01-14-2023 Resolved: 149742-16-4149DbbcbtyIojcf nervous system disorders (1 source)Other acute postprocedural pain; Translations: [Acute postoperative pain]Onset: 12-07-8950VwrecsnaTmafy nervous system disorders (4 sources)Numbness of upper limb; Translations: [Anesthesia of skin]03-19-2025 EpisodicOther nervous system disorders (1 source)Anesthesia of skin; Translations: [Anesthesia of skin]Onset: 72-91-8012WqfapuzyFubbl non-traumatic joint disorders (9 sources)Pain in right hip; Translations: [PAIN IN RIGHT HIP]Onset: 11-17-2021 Resolved: 97-73-9965SoqrcqhrMpzbo non-traumatic joint disorders (2 sources)Pain in left shoulder; Translations: [Pain in joint, shoulder region] 08-71-9430GrhpbumaWvrkj nutritional; endocrine; and metabolic disorders (20 sources)Body mass index 30+ - obesity; Translations: [Body mass index (BMI) 38.0-38.9, adult]Onset: 07-04-2023 Resolved: 452547-91-9239PbdhnukCybxq nutritional; endocrine; and metabolic disorders (20 sources)Obesity caused by energy imbalance; Translations: [Morbid (severe) obesity due to excess calories]Onset: 590165-53-6258HojvylvKkxwo nutritional; endocrine; and metabolic disorders (2 sources)Body mass index 40+ - severely obese; Translations: [Body mass index (BMI) 45.0-49.9, adult]82-46-6214HidanrrTbxpn skin disorders (4 sources)Localized swelling, mass and lump, neck; Translations: [LOCALIZED SWELLING MASS AND LUMP NECK]Onset: 20-39-9090DxknurupEisuq skin disorders (2 sources)Eruption; Translations: [Rash and other nonspecific skin eruption] 02-43-0377XjoxrgobZfyrt upper respiratory disease (20 sources)Chronic rhinitis; Translations: [Chronic rhinitis]Onset: 2023 53-81-0005GfubixxRoxvp upper respiratory infections (20 sources)Chronic sinusitis; Translations: [Other chronic sinusitis]Onset: 07-13-2023 Resolved: 980559-46-2515ZfqkhqdNbwjwvsqb heart disease (20 sources)Pulmonary hypertension; Translations: [Pulmonary hypertension, unspecified]Onset: 11-08-2022 Resolved: 166654-14-7847KrqlxatVfkksiqt enteritis and ulcerative colitis (20 sources)Crohn's disease; Translations: [Crohn's disease, unspecified, without complications]Onset: 09-21-2011 Resolved: 175823-21-3812CcdlpkkDyvhrknzadvbkz care; fitting of prostheses; and adjustment of devices (2 sources)Follow-up status; Translations: [Encounter for adjustment and management of other implanted nervoussystem device]27-58-7639KocgluxuYxaqqtna codes; unclassified (20 sources)Obstructive sleep apnea syndrome; Translations: [Obstructive sleep apnea (adult) (pediatric)]Onset: 292734-60-5848ZfypgfmOxdymlfh codes; unclassified (1 source)Sleep apnea, unspecified; Translations: [SLEEP APNEA UNSPECIFIED] Onset: 33-64-8628XebtzmoNypuyaki codes; unclassified (1 source)Obstructive sleep apnea (adult) (pediatric); Translations: [Obstructive sleep apnea (adult) (pediatric)]Onset: 18-22-9506BgjjtraEshickao codes; unclassified (2 sources)Sleep apnea; Translations: [Sleep Apnea]Onset: 69-00-1038Osguubn Residual codes; unclassified (1 source)Acquired absence of other specified parts of digestive tract; Translations: [ACQ ABSENCE OTH PART DIGESTV TRACT]Onset: 73-31-6425Cdhtwyik Residual codes; unclassified (1 source)Acquired absence of both cervix and uterus; Translations: [ACQUIRED ABSENCE BOTH CERVIX AND UTERUS]Onset: 48-11-9402KuzgqrwsKuhmvylsyrj; intervertebral disc disorders; other back problems (5 sources)Lumbago-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; Translations: [Other intervertebral disc displacement, lumbosacral region]Onset: 57-61-6702VgzfzlxNtaphau disorders (20 sources)Nontoxic multinodular goiter; Translations: [Multinodular goiter] Onset: 09-06-2022 Resolved: 30-01-1676SrcppdiCndyfwh disorders (4 sources)Disorder of thyroid, unspecified; Translations: [DISORDER OF THYROID UNSPECIFIED]Onset: 02-36-5529DuswixwjGqzwhlsbhspk (1 source)LOW BACK PAIN, UNSPECIFIED; Translations: [LOW BACK PAIN, UNSPECIFIED] Onset: 18-40-5308Nafuywddvxls (2 sources)CONTACT W/AND (SUSP) EXPOS COVID-19; Translations: [CONTACT W/AND (SUSP) EXPOS COVID-19]Onset: 38-98-9906Tgfvsqucobpb (1 source)Post-opOnset: 39-89-7786Btmvyrbbgmar (1 source)inspire consultOnset: 04-19-2024 Past or Other Problems Problem ClassificationProblemDateDocumented DateEpisodic/ChronicAbdominal pain (20 sources)Flank pain; Translations: [Abdominal pain]Onset: 12-14-2020 Resolved: 137055-92-5226YojdifboChikwcsg of urinary tract (20 sources)Kidney stone; Translations: [Calculus of kidney]Onset: 04-22-2022 EpisodicCardiac dysrhythmias (6 sources)Palpitations; Translations: [PALPITATIONS]Onset: 05-41-2203Gsgckias Conditions associated with dizziness or vertigo (20 sources)Dizziness and giddiness; Translations: [Dizziness and giddiness] Onset: 837128-82-5231JdycqkkuFtkbocvxsgnkg and screening for infectious disease (20 sources)Needs influenza immunization; Translations: [Encounter for immunization]Onset: 954561-15-9168TwrwkmjlKzwpcgodsl obstruction without hernia (20 sources)Enterolith of small intestine; Translations: [Other impaction of intestine]Onset: 12-14-2020 Resolved: 596831-69-3374IhllzsdyPrqvs connective tissue disease (6 sources)Trochanteric bursitis, right hip; Translations: [TROCHANTERIC BURSITIS RIGHT HIP]Onset: 12-09-2021 Resolved: 76-34-4994WijczpdtIxkvx connective tissue disease (20 sources)Pain of left heel; Translations: [Pain in left foot]Onset: 442092-64-4849QogcjwzcTelvv connective tissue disease (20 sources)Pain in left foot; Translations: [Pain in left foot]Onset: 816279-96-7715EvvregebDjygd connective tissue disease (20 sources)Disorder of Achilles tendon; Translations: [Other specified disorders of tendon, left ankle and foot]Onset: 10-25-2023 Resolved: 963565-63-4855FdsjptlkFsxmq lower respiratory disease (20 sources)Disorder of lung; Translations: [Other disorders of lung]Onset: 04-05-2013 Resolved: 497889-21-4710IpihdozrVyrlx lower respiratory disease (20 sources)Dyspnea; Translations: [Dyspnea, unspecified]Onset: 04-20-2012 93-97-8049ZpwonxiyKpqwi non-traumatic joint disorders (1 source)Osteophyte, right hip; Translations: [OSTEOPHYTE RIGHT HIP]Onset: 05-93-2259NmngsmmlMkalz non-traumatic joint disorders (20 sources)Hip pain; Translations: [Pain in right hip]Onset: 08-21-2023 37-19-1377KhgwznhqYuobi nutritional; endocrine; and metabolic disorders (20 sources)Obesity; Translations: [Obesity, unspecified]Onset: 11-08-2022 Resolved: 007484-37-3276DkhhnczCskzf and delivery including normal (12 sources)Vaginal delivery; Translations: [Encounter for full-term uncomplicated delivery]Onset: 090632-13-3317GskznhdkEazhr screening for suspected conditions (not mental disorders or infectious disease) (20 sources)Encounter for screening for malignant neoplasm of cervix; Translations: [Encounter for screening mammogram for malignant neoplasm of breast]Onset: 66-63-3407YbhajosiTmcxh upper respiratory infections (20 sources)Acute sinusitis; Translations: [Other acute sinusitis]Onset: 06-07-2023 Resolved: 552535-58-0159QvkqyontKxcvxb media and related conditions (20 sources)Finding of fluid behind tympanic membrane; Translations: [Unspecified nonsuppurative otitis media, right ear]Onset: 07-04-2023 Resolved: 061332-36-6241KtcrzcjsVmlifar cyst (1 source)Other ovarian cyst, left side; Translations: [OTHER OVARIAN CYST LEFT SIDE]Onset: 63-45-4481WhywmzafAkwmhrvx; pneumothorax; pulmonary collapse (20 sources)Pleurisy; Translations: [Pleurisy]Onset: EpisodicResidual codes; unclassified (1 source)Family history of malignant neoplasm of breast; Translations: [FAMILY HX MALIG NEOPLASM OF BREAST]Onset: 02-53-9775AfqqgxjeRtdrhuds codes; unclassified (1 source)Family history of malignant neoplasm of digestive organs; Translations: [FAM HX MALIG NEOPLASM DIGESTIV ORGN]Onset: 48-22-8771Lzamvetv Spondylosis; intervertebral disc disorders; other back problems (20 sources)Chronic low back pain; Translations: [Chronic bilateral low back pain without sciatica]Onset: 33-61-6723KalsqyptUzwjzzf and strains (4 sources)Other sprain of right hip, initial encounter; Translations: [OTHER SPRAIN RIGHT HIP INITIAL ENC]Onset: 04-59-5589BlnucdexFukjteerxltp (1 source)nephrolithiasis( Confirmed )04-61-2494Ugguomsdnfhd (8 sources)pagpxgjtifoqsme40-18-7564Vrwkkzjlzjwh (1 source)CONTACT W/AND (SUSP) EXPOS COVID-19; Translations: [CONTACT W/AND (SUSP) EXPOS COVID-19]Onset: 41-05-8495Gdxpagcapset (3 sources)Pain in pelvis; Translations: [Pelvic pain]Onset: 01-14-2023 Resolved: Viral infection (20 sources)Disease caused by 2019-nCoV; Translations: [COVID-19]Onset: 01-24-2022 Resolved: 038840-76-9237HkoacebiKivhy infection (2 sources)COVID-19; Translations: [COVID-19]Onset: 01-27-2022 Results Test NameValueInterpretationReference RangeFacilityOffice Visiton 03-31-2025 Follow-up [id number] Stacey Sahu 1975 Date Provider Department Center 03/31/2025 MILO COTTO RAVI [facility] Family History Problem Relation Age of Onset Cancer Mother Coronary artery disease Father Angina Father Asthma Father Heart disease Father Family Status - Relation Status Age at Mother Alive Father Alive Level of Service:47217 SC OFFICE/OUTPATIENT ESTABLISHED MOD MDM 30 MIN (25) NormalUnWVUMedicine [facility] HospitalOffice Visiton 50-09-7278Eyyeya-up [id number] Stacey Sahu 1975 Provider Department Center 03/20/2025 [facility] Family History Problem Relation Age of Onset Cancer Mother Coronary artery disease Father Angina Father Asthma Father Heart disease Father Family Status - Relation Status Age at Mother Alive Father Alive Level of Service:15798 SC OFFICE/OUTPATIENT NEW LOW MDM 30 MINUTES (GC,51) Reason for Visit and Comments: Pain [136]NormalUnWVUMedicine Barnesville HospitalXR CERVICAL SPINE 2-3 VIEWSon 93-60-9470LK CERVICAL SPINE 2-3 VIEWSEXAMINATION/TECHNIQUE: XR CERVICAL SPINE 2-3 VIEWS HISTORY: Left arm numbness. COMPARISON: None RESULT: Counting Reference: Craniocervical junction. Alignment anatomic. No radiographic evidence for acute fracture. Vertebral body heights maintained.Disc spaces maintained. Facet/uncovertebral degenerative changes. Device leads within the right anterior tissues. Lung apices clear. IMPRESSION: No acute osseous findings. Degenerative changes. ELECTRONICALLY SIGNED BY: Melissa Nava MDNormalNot AvailableXR CHEST 2 VIEWS on 11-51-1606RQ CHEST 2 VIEWSEXAMINATION/TECHNIQUE: XR CHEST 2 VIEWS HISTORY: Chest pressure. COMPARISON: None RESULT: No consolidation. No pleural effusion. No pneumothorax. Normal cardiomediastinal silhouette. No acute osseous findings. Degenerative changes. Device within the right chest wall with lead extending cranially out of the iazws-fy-imyu. IMPRESSION: No acute radiographic findings. ELECTRONICALLY SIGNED BY: Jan Montes AvailableXR SHOULDER 2+ VIEWS LEFTon 87-32-8825QN SHOULDER 2+ VIEWS LEFTEXAMINATION/TECHNIQUE: XR SHOULDER 2+ VIEWS LEFT HISTORY: Left shoulder pain for 2 days. COMPARISON: None RESULT: No acute fracture or dislocation. Glenohumeral joint space maintained. Mild degenerative changes acromioclavicular joint. Acromiohumeral interval maintained. Soft tissues unremarkable. Visualized thorax/lungs unremarkable. IMPRESSION: No acute osseous findings. ELECTRONICALLY SIGNED BY: Jan Montes AvailableAmbulatory Visit Summaryon 53-71-7954Hpcdzkblky Visit SummaryAmbulatory Visit Summary STACEY SAHU :1975 Visit Date:03/06/2025 Ambulatory Visit Instructions Your Diagnosis Kidney stones Hyperoxaluria Gross hematuria Your Care Team Attending Physician - MISHA Patterson APRN, [facility] Primary Care Physician - LAXMI DUDLEY This Is Your Medications List Contact prescribing physician if questions or concerns atorvastatin (atorvastatin 10 mg Tab) busPIRone (busPIRone 7.5 mg oral tablet) meloxicam (meloxicam 15 mg Tab) naproxen (Aleve) omeprazole (Prilosec) Procedures Performed ESWL of kidney (11/28/2024), Hemithyroidectomy (12/2022), Arthroplasty of right hip, Hysterectomy, laparoscopy, partial colectomy, Tonsillectomy, tubal ligation. Discharge Vitals Temperature (Temporal Artery) 37 ???C Heart Rate (Peripheral) 84 Respiratory Rate 16 Blood Pressure 129/81 Height 155 cm Height 61 in Weight 93.5 kg Weight 206.132 lb BMI 38.92 What to do next Scheduled Follow-Up Appointments Aug. 2025 11:40 AM EDT With: MISHA Patterson APRN, [facility] Where: [facility] [address] [address]- You Need to Schedule the Following Appointments Follow Up with MISHA Patterson APRN, Alecia Duncan, ALFA, URL When: Comments: 6 mos KUB Where: Medications What How Much When Instructions Unchanged [...] small intestine Flank pain Gross hematuria Hyperlipidemia Hyperoxaluria Kidney stones Nocturia PAH (pulmonary artery hypertension) [...] other parts of the urinary tract, including: ??? The tubes that connect the kidneys to the bladder (ureters). ??? The bladder. ??? The tube that carries urine out of the body (urethra). Kidney stones can cause very bad pain and can block the flow of pee. The stone usually leaves your body through your pee. A doctor may need to take out the stone. What are the causes? Kidney stones may be caused by: ??? Too much calcium in the body. This may be caused by too much parathyroid hormone in the blood. ??? Uric acid crystals in the bladder. The body makes uric acid when you eat certain foods. ??? Narrowing of one or both of the ureters. ??? A kidney blockage that you were born with. ??? Past surgery on the kidney or the ureters. What increases the risk? You are more likely to develop this condition if: ??? You have had a kidney stone in the past. ??? Other people in your family have had kidney stones. ??? You do not drink enough water. ??? You eat a diet that is high in protein, salt (sodium), or sugar. ??? You are very overweight (obese). What are the signs or symptoms? Symptoms of a kidney stone may include: ??? Pain in the side of the belly, right below the ribs. Pain usually spreads to the groin. ??? Needing to pee often or right away. ??? Pain when peeing. ??? Blood in your pee. ??? Feeling like you may vomit (nauseous). ??? Vomiting. ??? Fever and chills. How is this treated? Treatment depends on the size, location, and makeup of the kidney stones. The stones will often pass out of the body when you pee. You may need to: ??? Drink more fluid to help pass the stone. ? In some cases, you may be given fluids through an IV tube at the hospital. ??? Take medicine for pain. ??? Change your diet to help keep kidney stones from coming back. Sometimes, you may need: ??? A procedure to break up kidney stones using a beam of light (laser) or shock waves. ??? Surgery to remove the kidney stones. Follow these instructions at home: Medicines ??? Take wkvd-rfi-meslnld and pre (more content not included)...[facility] Noteon 14-62-0417Yrsdgsp Office/Clinic Note Urology Office/Clinic Note Chief Complaint F/u with KUB HPI Staff Pt is a 49 year old female here for follow up metabolic work up and KUB both done 02/11/25 Dx: kidney stones and gross hematuria s/p ESWL 11/28/2024 Denies all urinary complaints at this time. Denies any visible blood or pain of any kind. History of Present Illness I have reviewed and verified the staff HPI to be accurate for this encounter. Portions of this record may have been created with voice recognition artificial intelligence software, specifically Box, [employer] and or [email or web address] Experience. Substitutions may have occurred due to the inherent limitations of voice recognition and artificial intelligence software. Review of Systems PHQ Score Initial Depression Screen Score: 0 SCORE Physical Exam Vitals & Measurements T: 37 ???C(Temporal Artery) HR: 84(Peripheral) RR: 16 BP: 129/81 HT: 61 in HT: 155 cm WT: 93.5 kg WT: 206.132 lb BMI: 38.92 General: Well developed, well nourished, in no acute distress. Assessment/Plan PRW pt BBS 8 1. Kidney stones (N20.0: Calculus of kidney) s/p ESWL 2010 by RWR, pt did not recall passing fragments after s/p right ESWL 11/28/24 b y PRW for 12 mm stone KUB TBH 02/11/25 - left nephrolithiasis measuring up to 4 mm. Right kidney obscured by stool. Discussed KUB results w/ pt. Did offer repeat KUB after bowel cleanse to better view right kidney, but pt declines at this time. Metabolic Workup 02/13/25: U24 Volume - 1.3 L Pt advised on fluid intake being largest risk factor for stones. Goal is enough fluid to produced 2.5 L of urine in 24 hrs. Does not need to be plain water, low sugar flavor packets acceptable, lemonade/pink lemonade, clear sodas. Increase fluid intake, avoid bladder irritants ER for fever, NV, severe flank pain, inability to urinate -f/u 6 mos w/ repeat KUB -inc fluid intake Ordered: Urnls Dip Stick Auto w/o Microscopy POC 80989 2. Hyperoxaluria (R82.992: Hyperoxaluria) Metabolic Workup 02/13/25: U24 Oxalate - 47 (4-31) Educated on low oxalate diet, given oxalate sheet 3. Gross hematuria (R31.0: Gross hematuria) Chronic, intermittent. Hx of hysterectomy. S/p Cysto 03/08/22. Neg CTU 04/22/22. UA today w/o blood or infection. denies any episode of gross hematuria since prior OV -cont to monitor Ordered: Urnls Dip Stick Auto w/o Microscopy POC 52189 Follow-up With When Contact Information Orzech DRIER ATTENDANT, MEDICAL ASSISTING INSTRUCTOR-C, Alecia X, FAM, URL Additional Instructions: 6 mos KUB Patient Education Kidney Stones, Tuqp-ct-Tgen Dietary Guidelines to Help Prevent Kidney Stones Hematuria, Adult Problem List/Past Medical History Ongoing Bipolar depression Chronic GERD Crohn's disease, small intestine Flank pain Gross hematuria Hyperlipidemia Hyperoxaluria Kidney stones Nocturia PAH (pulmonary artery hypertension) Historical anxiety disorder crohn's disease depression hypercholesterolemia nephrolithiasis Procedure/Surgical History ESWL of kidney (11/28/2024), Hemithyroidectomy (12/2022), Arthroplasty of right hip, Hysterectomy, [...] more than 30 days ago Tobacco Use:. Never Smokeless Tobacco Use:. Cigarettes. Yes., 03/05/2025 Past, 12/23/2010 Family History Breast cancer: Mother. Coronary artery disease: Father. Diabetes mellitus type 2: Father. Hypertension: Father. Osteoporosis: Mother. Primary malignant neoplasm of colon: Aunt. Immunizations Vaccine Date Status influenza, whole 05/03/2012 Recorded Lab Results Ambulatory Point of Care Results Bilirubin Urine Dipstick: Negative (03/06/25 11:14:00) Blood Urine Dipstick: Negative (03/06/25 11:14:00) Glucose Urine Dipstick: Negative (03/06/25 11:14:00) Ketones Urine Dipstick: Negative (03/06/25 11:14:00) Leukocytes Urine Dipstick: Negative (03/06/25 11:14:00) Nitrite Urine Dipstick: Negative (03/06/25 11:14:00) Protein Urine Dipstick: Negative (03/06/25 11:14:00) Specific [place] Urine Dipstick: 1.025 (03/06/25 11:14:00) Urine Appearance Urine Dipstick: Clear (03/06/25 11:14:00) Urine Color Urine Dipstick: Yellow (03/06/25 11:14:00) Urobilinogen Urine Dipstick: Normal 0.2-1 EU/dl (03/06/25 11:14:00) pH Urine Dipstick: 5.5 (03/06/25 11:14:00)[facility] Comment on above:Result Comment: Electronically Signed By: MISHA Patterson APRN, Alecia Duncan\Maribelbr\Date and Time Signed: 03/06/25 11:45 EDTALL BUNon 49-64-6438Ymil nitrogen [Mass/Vol]14 mg/dL7.0 - 18.0 mg/dLNOKY HealthcareALL CARBON DIOXIDEon 37-73-5867QE0 [Moles/Vol]29.8 mmol/L21.0 - 32.0 mmol/LNOMS HealthcareALL CHLORIDEon 96-77-3672Tfyjsvjs [Moles/Vol]107 mmol/L98 - 107 mmol/LNOMS HealthcareALL PHOSPHOROUSon 08-05-4462Uscaspskw [Mass/Vol]3.5 mg/dL2.6 - 4.7 mg/dLNOKY HealthcareALL SODIUMon 67-25-7811Qefsek [Moles/Vol]141 mmol/L136 - 145 mmol/LNOMS HealthcareALL URIC ACIDon 29-12-7767Cdvgd [Mass/Vol]3.9 mg/dL2.6 - 6.0 mg/dLNOKY HealthcareCCF CALCIUMon 87-80-3532Tinukbc [Mass/Vol]9 mg/dL8.5 - 10.1 mg/dLNOKY HealthcareNo Panel Informationon 56-79-6775JSUKKNSZIRXRR HealthcareOxalate (24H U) [Mass/Time]on 65-92-3736RQFUVQ (HRS)24 hrNormal [facility] CenterComment on above:Order Comment: Specimen Type: BLOOD SPECIMEN Ordering Facility: [facility] Address: [address] [place], [place] [address]Performed By: #### 44826-0, 74967- 2, 2276-4 #### [facility] CLIA [id number] [address] [place] [address] [place] [address] [place] OF AMERICASpecimen volume (24H U)1.3 L NormalTriHealth McCull[facility] on above:Order Comment: Specimen Type: BLOOD SPECIMEN Ordering Facility: [facility] Address: [address] [place], [place] [address]Performed By: #### 99923-9, 53868- 2, 2276-4 #### [facility] CLIA [id number] [address] [place] [address] [place] AMERICAOxalate 24h Ur-mRateon 25-79-9136Mjmvkvs (24H U) [Mass/Time]47 mg/32xxqTtwz8-63WfxfsnzuoTriHealth McCullough-Hy[facility] Hospital on above:Order Comment: Specimen Type: BLOOD SPECIMEN Ordering Facility: [facility] Address: [address] [place], [place] [address]Result Comment: This test was developed, and its performance characteristics determined by the [facility] Department of Pathology and Laboratory Medicine. It has not been cleared or approved bythe FDA. The [facility] Department of Pathology and Laboratory Medicine is regulated under CLIA as qualified to perform high- complexity testing. This test is used for clinical purposes. It should not be regarded as investigational or for research.Performed By: #### 23061-0, 26870-6, 2276-4 #### [facility] CLIA [id number] [address] [place] [address] [place] OF AMERICATBH CREATININEon 02-13-2025 Creatinine [Mass/Vol]0.86 mg/dL0.55 - 1.02 mg/dLNOMS HealthcareGFR/1.73 sq M.predicted CKD-EPI (S/P/Bld) [Vol rate/Area]>60>=60 mL/min/1.73m 2NOMS HealthcareTBH EGFR-NON AF FINNISH>60>=60 mL/min/1.73m 2NOMS HealthcareXR ABDOMEN 1Von 34-09-8484O[address] [address] XRay Report Signed Patient: STACEY SAHU MR#: [id number] : 1975 Acct:[id number] Age/Sex: 49 / F ADM Date: 02/11/25 Loc: RAD Attending Dr: Lynn Garcia M.D. Ordering Physician: Lynn Garcia M.D. Date of Service: 02/11/25 Procedure(s): XR abdomen 1V Accession Number(s): [id number] cc: Pauline Ryan NP; Lynn Garcia M.D. [facility] [place] [address] Patient Name: STACEY SAHU MRN: [facility]:[id number] date: 1975 Sex: F Assigned Patient Location: [facility] Current Patient Location: RAD Accession/Order Number: [id number] Exam Date: 02/11/2025 12:30 Report Date: 02/11/2025 [...] Iniguez M.D. 02/11/2025 12:36 PM Dictation Location: [place] [address] Electronically authenticated by: [id number] Y Date: 02/11/2025 12:36 Dictated By: Vipin Iniguez D.O. Signed By: 02/11/25 1239 DD/ 1236 TD/TT: Draw Tender:TOMÁSadiology, Radiologist, - 02/11/2025 [place] [address] XRay Report Signed Patient: STACEY SAHU MR#: [id number] : 1975 Acct:[id number] Age/Sex: 49 / F ADM Date: 02/11/25 Loc: RAD Attending Dr: Lynn Garcia M.D. Ordering Physician: Lynn Garcia M.D. Date of Service: 02/11/25 Procedure(s): XR abdomen 1V Accession Number(s): [id number] cc: Pauline Ryan NP; Lynn Garcia M.D. [place] [address] Patient Name: STACEY SAHU MRN: [facility]:[id number] date: 1975 Sex: F Assigned Patient Location: [facility] Current Patient Location: [facility] Accession/Order Number: [id number] Exam Date: 02/11/2025 12:30 Report Date: 02/11/2025 [...] Iniguez M.D. 02/11/2025 12:36 PM Dictation Location: [place] [address] Electronically authenticated by: [id number] Y Date: 02/11/2025 12:36 Dictated By: Vipin Iniguez D.O. Signed By: 02/11/25 1239 DD/ 1236 TD/TT: Draw Tender: MISHA HealthcareRadiology Study observation (narrative)NOMS HealthcareXR ABDOMEN 1VOrdered By: Radiologist Radiology on 26-48-7912UCQVBarnes-Jewish [facility] Work Phone: HbA1c (Bld) [Mass fraction]on 59-38-3321Qtrivjaspiqvbq and review of laboratory resultsNormalNOBlack River Memorial HospitalLaboratory - Hematology and Cell countson 92-62-8755ZkF2s (Bld) [Mass fraction]5.6 %NOMS HealthcareXR ABDOMEN 1Von 22-30-2233Pi[address] [address] XRay Report Signed Patient: STACEY SAHU MR#: [id number] : 1975 Acct:[id number] Age/Sex: 49 / F ADM Date: 11/28/24 Loc: SURGOUT Attending Dr: Lynn Garcia M.D. Ordering Physician: Lynn Garcia M.D. Date of Service: 11/28/24 Procedure(s): XR abdomen 1V Accession Number(s): [id number] cc: Pauline Ryan NP; yLnn Garcia M.D. [address] [address] Patient Name: STACEY SAHU MRN: [facility]:[id number] date: 1975 Sex: F Assigned Patient Location: [facility] Current Patient Location: [facility] Accession/Order Number: [id number] Exam Date: 11/28/2024 11:14 Report Date: 11/28/2024 [...] Clifford M.D. 11/28/2024 11:20 AM Dictation Location: [place] [address] Electronically authenticated by: [id number] Y Date: 11/28/2024 11:20 Dictated By: Dinorah Clifford M.D. Signed By: 11/28/24 1123 DD/ 1120 TD/TT: Draw Tender:TOMÁSadiologjose, RadiologistMD - 11/28/2024 [place] [address] XRay Report Signed Patient: STACEY SAHU MR#: [id number] : 1975 Acct:[id number] Age/Sex: 49 / F ADM Date: 11/28/24 Loc: SURGOUT Attending Dr: Lynn Garcia M.D. Ordering Physician: Lynn Garcia M.D. Date of Service: 11/28/24 Procedure(s): XR abdomen 1V Accession Number(s): [id number] cc: Pauline Ryan LOG CHAIN FEEDER; Lynn Garcia M.D. The [place] [id number] Patient Name: STACEY SAHU MRN: [facility]:[id number] date: 1975 Sex: F Assigned Patient Location: [facility] Current Patient Location: [facility] Accession/Order Number: [id number] Exam Date: 11/28/2024 11:14 Report Date: 11/28/2024 [...] Clifford M.D. 11/28/2024 11:20 AM Dictation Location: [place] [address] Electronically authenticated by: [id number] Y Date: 11/28/2024 11:20 Dictated By: Dinorah Clifford M.D. Signed By: 11/28/24 1123 DD/ 1120 TD/TT: Draw Tender: [facility] HealthcareRadiology Study observation (narrative)NOM HealthcareXR ABDOMEN 1VOrdered By: Radiologist Radiology on 30-71-3930NPYRBarnes-Jewish [facility] Work Phone: aLL CBC WITH AUTO DIFFon 13-64-9242XKZBDHJNK ABSOLUTE AUTO0.1NOMS HealthcareBasophils/100 WBC (Bld)1.2 %0.2 - 2.0 %[facility]OM Healthcare Eosinophils/100 WBC (Bld)7.7 %High0.9 - 7.0 %[facility] HealthcareErythrocyte distribution width (RBC) [Ratio]13.1 %11.0 - 15.0 %NOM HealthcareHematocrit (Bld) [Volume fraction]38.2 %36.0 - 48.0 %NOM HealthcareHemoglobin (Bld) [Mass/Vol]12.4 g/dL12.0 - 16.0 g/dLBarnes-Jewish Saint Peters HospitalIMMATURE GRANULOCYTES ABS AUTO 0.02NOMS HealthcareImmature granulocytes/100 WBC (Bld)0.3 %0.0 - 0.5 %[facility] HealthcareInterpretation and review of laboratory resultsAbnormalNOBoone Hospital Center LYMPHOCYTES ABSOLUTE AUTO2.7NOMS HealthcareLymphocytes/100 WBC (Bld)36.2 %20.5 - 60.0 %[facility] HospitalMCH (RBC) [Entitic mass]28.6 pg26.7 - 34.0 pgNOHannibal Regional HospitalHC (RBC) [Mass/Vol]32.5 g/dL29.9 - 35.2 g/dLBarnes-Jewish Saint Peters HospitalMCV (RBC) [Entitic vol]88 fL81.0 - 99.0 fLNOKY HealthcareMONOCYTES ABSOLUTE AUTO0.6NOMS HealthcareMonocytes/100 WBC (Bld)8.5 %1.7 - 12.0 %NOMS HealthcareNEUTROPHILS ABSOLUTE AUTO3.5NOMS HealthcareNeutrophils/100 WBC (Bld)46.1 %43.0 - 75.0 %NOMS HealthcarePlatelet mean volume (Bld) [Entitic vol]10.4 fL9.5 - 13.5 fLNOMS HealthcareTBH EO #0.6NOMS HealthcareTBH [id number] HealthcareTBH RBC4.34NOMS HealthcareTBH WBC7.6NOMS HealthcareCLINISYNCNOMS Egrmqajyuu36jy Patient left a voicemail indicating she would like to proceed with alternative provider and lab provided they are in-network with her insurance. Unable to determine insurance network status. Faxed referral, sleep study order, last visit notes, and split night study report to [facility]36on Left voicemail for patient: according to Marisa [facility] sleep medicine in [place] has [employer]-trained techs at their lab and an Inspire-trained provider in Dr. Paulette Warren -- would you like us to send your study order and referral? [facility] HospitalTelephoneon [id number] Stacey Sahu 1975 F Date Provider Department Center 11/15/2024 303Gentry-KAMINI LOVE [facility] SLEEP [facility] Family History Problem Relation Age of Onset Coronary artery disease Father Family Status - Relation Status Age at Mother Alive Father Reason for Visit and Comments: Sleep Study [701] Referral [825][facility] HospitalOffice Visiton 11-11-2024 Follow-up [id number] Stacey Sahu 1975 F Date Provider Department Center 11/11/2024 Arslan-MILO MORAN RAVI Tobias [facility] Family History Problem Relation Age of Onset Coronary artery disease Father Family Status - Relation Status Age at Mother Alive Father Level of Service:26562 SC OFFICE/OUTPATIENT ESTABLISHED MOD MDM 30 [facility] HospitalXR SP[facility] CERVICAL 3 VWS OR LESSon 11-02-2024 XR SPINE CERVICAL 3 VWS OR LESSXR SPINE CERVICAL 3 VWS OR LESS XR SPINE CERVICAL 3 VWS OR LESS HISTORY: Chest pain, unspecified type; sleep apnea. COMPARISON: 08/22/2024. IMPRESSION: * Hypoglossal nerve stimulator right submandibular region. * No acute osseous abnormality. Finalized by Mark Stoddard MD on 11/02/2024 11:41 PMNormalProMedica Veterans Affairs Medical Center San Diego ECHO DOPPLER COMPLETEon 64-35-1443LevGr[place] [address] Cardiology Report Signed Patient: STACEY SAHU MR#: [id number] : 1975 Acct:[id number] Age/Sex: 49 / F ADM Date: 11/01/24 Loc: CARD Attending Dr: CAN MONROE APRN Ordering Physician: CAN MONROE APRN Date of Service: 11/01/24 Procedure(s): CA echo doppler complete Accession Number(s): [id number] cc: Pauline Ryan LOG CHAIN FEEDER; CAN MONROE APRN Patient Name: STACEY SAHU MR#: [id number] : 1975 Exam Date: 11/01/2024 Ordering Doctor: [...] By: Guanaco Draper M.D. (more content not included)...TBHRadiology, Radiologist, MD - 11/01/2024 [place] [address] Cardiology Report Signed Patient: STACEY SAHU MR#: [id number] : 1975 Acct:[id number] Age/Sex: 49 / F ADM Date: 11/01/24 Loc: CARD Attending Dr: CAN MONROE APRN Ordering Physician: CAN MONROE APRN Date of Service: 11/01/24 Procedure(s): CA echo doppler complete Accession Number(s): [id number] cc: Pauline Ryan LOG CHAIN FEEDER; CAN MONROE APRN Patient Name: STACEY SAHU MR#: [id number] : 1975 Exam Date: 11/01/2024 Ordering Doctor: [...] M.D. Signed By: 11/01/241758 DD/ 57 TD/TT: Draw Tender: MISHA HealthcareRadiology Study observation (narrative)[facility] HospitalCA ECHO DOPPLER COMPLETEOrdered By: Radiologist Radiology on 04-17-7650JSYN Healthcare Work Phone: [phone]-Rofz [id number]-[id number] Stacey Sahu 1975 Date Provider Department Center 10/30/2024 TRINH BASHIR [facility] SLEEP [facility] Family History Problem Relation Age of Onset Coronary artery disease Father Family Status - Relation Status Age at Mother Alive Father Level of Service:46764 SC OFFICE/OUTPATIENT ESTABLISHED LOW MDM 20 MIN Reason for Visit and Comments: Follow-up [683720] - Patient gets a sap a day or twice in chest.[facility]36on 36-99-246532Icweh with patient and she said her chest pain is better since starting diltiazem. She's scheduled for echo 11/02/2023.[facility]36on 70-71-513808Rlp also please ask how her chest pain is doing, if it is any better with starting diltiazem. ThanksNormalUniversity of Memorial [facility] & [facility]36When is she scheduled for her ECHO? Would like to have this prior to clearanceNormal [facility]36on 30-56-405663Jfb saw this patient in the office last week. Dr. Garcia is now requesting clearance for lithotripsy, scheduled on 10/17. She had EKG when we saw her, and I just put updated lab results into her chart. Please advise. Thanks![facility] SouthTelephoneon [id number] Stacey Sahu 1975 F Date Provider Department Center 10/11/2024 Tahir-WINTER STAHL RAVI [facility] Family History Problem Relation Age of Onset Coronary artery disease Father Family Status - Relation Status Age at Mother Alive Father DeceasedNormalUniversity of Memorial Hermann Orthopedic & Spine HospitalALL CBC WITH AUTO DIFFon 22-61-2389SHYAYHYRS ABSOLUTE AUTO0.1NOMS HealthcareBasophils/100 WBC (Bld)1.2 % 0.2 - 2.0 %NOMS HealthcareEosinophils/100 WBC (Bld)6.9 %0.9 - 7.0 %NOMS HealthcareErythrocyte distribution width (RBC) [Ratio]13.1 %11.0 - 15.0 %NOMS HealthcareHematocrit (Bld) [Volume fraction]38.5 %36.0 - 48.0 %[facility]OM[facility] Hemoglobin (Bld) [Mass/Vol]12.6 g/dL12.0 - 16.0 g/dLNOBoone Hospital CenterIMMATURE GRANULOCYTES ABS AUTO0.01NOKY HealthcareImmature granulocytes/100 WBC (Bld)0.1 % 0.0 - 0.5 %NOMUniversity HospitalLYMPHOCYTES ABSOLUTE AUTO2.7NOMS Healthcare Lymphocytes/100 WBC (Bld)33.4 %20.5 - 60.0 %[facility] Specialty HospitalH (RBC) [Entitic mass]28.4 pg26.7 - 34.0 pgNOHannibal Regional HospitalHC (RBC) [Mass/Vol]32.7 g/dL29.9 - 35.2 g/dLSelect Specialty HospitalV (RBC) [Entitic vol]86.7 fL81.0 - 99.0 fLNOBoone Hospital CenterMONOCYTES ABSOLUTE AUTO0.6NOKY HealthcareMonocytes/100 WBC (Bld)7.8 % 1.7 - 12.0 %NOMS HealthcareNEUTROPHILS ABSOLUTE AUTO4.1NOMS Healthcare Neutrophils/100 WBC (Bld)50.6 %43.0 - 75.0 %NOMUniversity HospitalPlatelet mean volume (Bld) [Entitic vol]10.6 fL9.5 - 13.5 fLNOBoone Hospital CenterTBH EO #0.6NOMS Healthcare TBH [id number] Mansfield HospitalTB RBC4.44NOMS Mansfield HospitalTB WBC[address] [place], [place] [address]XR HIP LT MIN 2Von 00-47-8170Igl[address] [address] XRay Report Signed Patient: STACEY SAHU MR#: [id number] : 1975 Acct:[id number] Age/Sex: 49 / F ADM Date: 10/09/24 Loc: RAD Attending Dr: Pauline Ryan NP Ordering Physician: Pauline Ryan NP Date of Service: 10/09/24 Procedure(s): XR hip LT min 2V Accession Number(s): [id number] cc: Pauline Ryan NP [place] [id number] Patient Name: STACEY SAHU MRN: [id number]:[id number] date: 1975 Sex: F Assigned Patient Location: [facility] Current Patient Location: [facility] Accession/Order Number: [id number] Exam Date: 10/09/2024 15:18 Report Date: 10/09/2024 15:19 At the request of: PAULINE RYAN NP Procedure: XR hip LT min 2V LEFT HIP - 2 views: CLINICAL HISTORY: Left Hip Pain COMPARISON: None FINDINGS: Mild degenerative changes of the left hip without acute bony process. XR/XR hip LT min 2V IMPRESSION: MILD DEGENERATIVE CHANGES OF THE LEFT HIP WITHOUT ACUTE BONY PROCESS.. Impression dictated by: Robby Lowe Jr., D.O.10/09/2024 3:19 PM Dictation Location: [place] [address] Electronically authenticated by: [id number] Y Date: 10/09/2024 15:19 Dictated By: Robby Lowe M.D. Signed By: 10/09/24 1522 DD/ 1519 TD/TT: Draw Tender:TOMÁSadiologjose, Radiologist, - 10/09/[address] [address] XRay Report Signed Patient: STACEY SAHU MR#: [id number] : 1975 Acct:[id number] Age/Sex: 49 / F ADM Date: 10/09/24 Loc: RAD Attending Dr: Pauline Ryan NP Ordering Physician: Pauline Ryan NP Date of Service: 10/09/24 Procedure(s): XR hip LT min 2V Accession Number(s): [id number] cc: Pauline Ryan NP [place] [address] Patient Name: STACEY SAHU MRN: [id number]:[id number] date: 1975 Sex: F Assigned Patient Location: RAD Current Patient Location: RAD Accession/Order Number: [id number] Exam Date: 10/09/2024 15:18 Report Date: 10/09/2024 15:19 At the request of: PAULINE RYAN NP Procedure: XR hip LT min 2V LEFT HIP - 2 views: CLINICAL HISTORY: Left Hip Pain COMPARISON: None FINDINGS: Mild degenerative changes of the left hip without acute bony process. XR/XR hip LT min 2V IMPRESSION: MILD DEGENERATIVE CHANGES OF THE LEFT HIP WITHOUT ACUTE BONY PROCESS.. Impression dictated by: Robby Lowe Jr., Alana10/09/2024 3:19 PM Dictation Location: [place] [address] Electronically authenticated by: [id number] Y Date: 10/09/2024 15:19 Dictated By: Robby Lowe M.D. Signed By: 10/09/24 1522 DD/ 1519 TD/TT: Draw Tender: MISHA HealthcareRadiology Study observation (narrative)NOMS HealthcareXR HIP LT MIN 2VOrdered By: Radiologist Radiology on 64-65-9208RVCD Healthcare Work Phone: ambulatory Visit Summaryon 65-35-6620Kzyuxqtzvj Visit SummaryAmbulatory Visit Summary STACEY SAHU :1975 Visit Date:10/07/2024 Ambulatory Visit Instructions Your Diagnosis Kidney stones Gross hematuria Your Care Team Attending Physician - JOSE FELIX, Lynn Palafox Primary Care Physician - PAULINE RYAN CNP This Is Your Medications List [...] with JOSE FELIX, NORMA Krueger When: Comments: schedule R ESWL then L Where: [facility] [address] , [place] [address] [phone] Medications What How Much When Instructions Unchanged [...] provider. This may be caused by a largestone that was not broken up enough. This may mean that you need more treatment. ??? Some pain or discomfort during urination. ??? Some pain or discomfort in the lower abdomen or at the base of the penis. Follow these instructions at home: Medicines ??? Take ufrl-tmh-ikpqnst and prescription medicines only as told by [...] to prevent or treat constipation: ? Take vmvx-gws-nsehvtp or prescription medicines. ? Eat foods that [...] fruits and vegetables. ? (more content not included)...[facility] HospitalUrology Office/Clinic Noteon 96-90-3634Btzvree Office/Clinic NoteUrology Office/Clinic Note Chief Complaint f/u to BEN [...] needs to significantly increase her fluid intake tohelp with stone prevention. Recommended pt to increase fluid intake to ten to twelve 16oz bottles aday; preferably water, clear pop, and sugar free lemonade. Reviewed imaging results. Discussed stone burden has become significant and treatment is recommended. Recommended ESWL and discussed risks/benefits. Given larger stone burden on right, will proceed with this side first. -Will schedule Right ESWL with possible stent placement. The procedure risks, benefits, details andtreatment alternatives have been discussed with the patient. [...] Lynn Palafox, URL [facility] [address] [place] [address]- [phone] Additional Instructions: schedule R ESWL then L Patient Education ESWL for Kidney Stones, Care After ESWL for Kidney Stones Dietary Guidelines to Help Prevent Kidney Stones IImani, personally scribed for Dr. Garcia on 10/07/2024 10:37:06. . Documentation recorded by the scribeImani, accurately reflects the services(s) I performed and decisions made by me. Authenticated by Dr. Garcia on 10/07/2024 10:43:09. Problem List/Past Medical History Ongoing Bipolar depression Chronic GERD Crohn's disease, small intestine Flank pain Gross hematuria Hyperlipidemia Kidney stones Nocturia PAH (pulmonary artery hypertension) Historical anxiety disorder crohn's disease depression hypercholesterolemia nephrolithiasis Procedure/Surgical History Hemithyroidectomy (12/2022), Arthroplasty of [...] ago Tobacco Use:. [place] (more content not included)...[facility] HospitalComment on above:Result Comment: Electronically Signed By: Lynn GARCIA MD\.br\Date and Time Signed: 10/07/24 10:43 EDT\.br\Electronically Co-Signed By: Imani Renae\.br\Date and Time Co-Signed: 10/07/24 10:37 EDTMM TOMOSYNTHESIS SCREENING BIon 12-56-1239SdrGr[place] [address] Mammography Report Signed Patient: STACEY SAHU MR#: [id number] : 1975 Acct:[id number] Age/Sex: 49 / F ADM Date: 10/04/24 Loc: MAMMO Attending Dr: Pauline Ryan NP Ordering Physician: Pauline Ryan NP Results: Date of Service: 10/04/24 Follow Up: Procedure(s): MM tomosynthesis screening BI Accession Number(s): [id number] cc: Pauline Ryan NP Patient Name: STACEY SAHU MR#: [id number] : 1975 Exam Date: 10/04/2024 Ordering Doctor: [...] colon cancer at age 56. LOCATION: [facility] BREAST COMPOSITION: There are scattered areas of [...] Signed By: 10/04/24 1230 DD/ 1229 TD/TT: Draw Tender:TBHRadiology, Radiologist, - 10/04/2024 [place] [address] Mammography Report Signed Patient: STACEY SAHU MR#: [id number] : 1975 Acct:[id number] Age/Sex: 49 / F ADM Date: 10/04/24 Loc: MAMMO Attending Dr: Pauline Ryan NP Ordering Physician: Pauline Ryan NP Results: Date of Service: 10/04/24 Follow Up: Procedure(s): MM tomosynthesis screening BI Accession Number(s): [id number] cc: Pauline Ryan NP Patient Name: STACEY SAHU MR#: [id number] : 1975 Exam Date: 10/04/2024 Ordering Doctor: NIURKA Ryan DIRECTOR OF PERSONNEL RADIOLOGY REPORT PROCEDURE: MM TOMOSYNTHESIS SCREENING BI [...] colon cancer at age 56. LOCATION: [facility] BREAST COMPOSITION: There are scattered areas of [...] Signed By: 10/04/24 1230 DD/ 1229 TD/TT: Draw Tender: MISHA [facility] HospitalRadiology Study observation (narrative)[facility] TOMOSYNTHESIS SCREENING BIOrdered By: Radiologist Radiology on 63-72-8038XFFR Healthcare Work Phone: Office Visiton [phone]-up [id number] Stacey Sahu 1975 F Date Provider Department Center 10/03/2024 CAN KAPLAN [facility] Family History Problem Relation Age of Onset Coronary artery disease Father Family Status - Relation Status Age at Mother Alive Father Level of Service:35538 SC OFFICE/OUTPATIENT ESTABLISHED MOD MDM 30 MIN Reason for Visit and Comments: Hypertension [873227] Hyperlipidemia [182]NormalKettering Health Medical CenterFollow-Upon 56-06-0612Kspoxv-[id number] Stacey Sahu 1975 F Date Provider Department Center 09/27/2024 TRINH BASHIR [facility] SLEEP [facility] Family History Problem Relation Age of Onset Coronary artery disease Father Family Status - Relation Status Age at Father Level of Service:79068 SC OFFICE/OUTPATIENT ESTABLISHED MOD MDM 30 MIN Reason for Visit and Comments: Sleep Apnea [348][place] [address]on Scheduled patient for Inspire device activation on 09/27 at 9:[address] 08-79-402798Mrno voicemail for patient: are you available to come in for your Inspire activation on September 27 at 9:00 am? Could potentially do it a bit later if that would work better.[facility] Doctors HospitalUS RENAL BIon 54-76-0876FtkGr[place] [address] Ultrasound Report Signed Patient: STACEY SAHU MR#: [id number] : 1975 Acct:[id number] Age/Sex: 49 / F ADM Date: 09/09/24 Loc: US Attending Dr: Leslie ONEILL Ordering Physician: Leslie Jung Date of Service: 09/09/24 Procedure(s): US renal BI Accession Number(s): [id number] cc: Pauline Ryan LOG CHAIN FEEDER; Leslie Jung [place] [phone] Patient Name: STACEY SAHU MRN: [id number]:[id number] date: 1975 Sex: F Assigned Patient Location: US Current Patient Location: US Accession/Order Number: [id number] Exam Date: 09/09/2024 11:27 Report Date: 09/09/2024 [...] Lowe Jr., D.O.09/09/2024 11:28 AM Dictation Location: [place] [address] Electronically authenticated by: [id number] Y Date: 09/09/2024 11:28 Dictated By: Robby Lowe M.D. Signed By: 09/09/24 1131 DD/ 1128 TD/TT: Draw Tender:URSZULAHRadiology, Radiologist, - 09/09/2024 [place] [address] Ultrasound Report Signed Patient: STACEY SAHU MR#: [id number] : 1975 Acct:[id number] Age/Sex: 49 / F ADM Date: 09/09/24 Loc: US Attending Dr: Leslie ONEILL Ordering Physician: Leslie Jung Date of Service: 09/09/24 Procedure(s): US renal BI Accession Number(s): [id number] cc: Pauline Ryan LOG CHAIN FEEDER; Leslie Jung [place] [address] Patient Name: STACEY SAHU MRN: [facility]:[id number] date: 1975 Sex: F Assigned Patient Location: US Current Patient Location: US Accession/Order Number: [id number] Exam Date: 09/09/2024 11:27 Report Date: 09/09/2024 [...] Lowe Jr., D.O.09/09/2024 11:28 AM Dictation Location: [place] [address] Electronically authenticated by: [id number] Y Date: 09/09/2024 11:28 Dictated By: Robby Lowe M.D. Signed By: 09/09/24 1131 DD/ 1128 TD/TT: Draw Tender: MISHA HealthcareRadiology Study observation (narrative)NOM HealthcareUS RENAL BI Ordered By: Radiologist Radiology on 84-87-5613NOJR [employer] Work Phone: XR ABDOMEN 1Von 43-95-0904LntGrass [place] [address] XRay Report Signed Patient: STACEY SAHU MR#: [id number] : 1975 Acct:[id number] Age/Sex: 49 / F ADM Date: 09/09/24 Loc: US Attending Dr: Leslie ONEILL Ordering Physician: Leslie Jung Date of Service: 09/09/24 Procedure(s): XR abdomen 1V Accession Number(s): [id number] cc: Pauline Ryan LOG CHAIN FEEDER; Leslie Jung [place] [phone] Patient Name: STACEY SAHU MRN: [id number]:[id number] date: 1975 Sex: F Assigned Patient Location: US Current Patient Location: US Accession/Order Number: [id number] Exam Date: 09/09/2024 12:27 Report Date: 09/09/2024 [...] Lowe Jr., D.O.09/09/2024 12:29 PM Dictation Location: [place] [address] Electronically authenticated by: [id number] Y Date: 09/09/2024 12:29 Dictated By: Robby Lowe M.D. Signed By: 09/09/24 1231 DD/ 1229 TD/TT: Draw Tender:TBHRadiology, Radiologist, - 09/09/2024 [place] [address] XRay Report Signed Patient: STACEY SAHU MR#: [id number] : 1975 Acct:[id number] Age/Sex: 49 / F ADM Date: 09/09/24 Loc: Attending Dr: Leslie ONEILL Ordering Physician: Leslie Jung Date of Service: 09/09/24 Procedure(s): XR abdomen 1V Accession Number(s): [id number] cc: Pauline Ryan NP; Leslie Jung The [place] [address] Patient Name: STACEY SAHU MRN: [facility]:[id number] date: 1975 Sex: F Assigned Patient Location: Current Patient Location: US Accession/Order Number: [id number] Exam Date: 09/09/2024 12:27 Report Date: 09/09/2024 [...] Lowe Jr., D.O.09/09/2024 12:29 PM Dictation Location: [place] [address] Electronically authenticated by: [id number] Y Date: 09/09/2024 12:29 Dictated By: Robby Lowe M.D. Signed By: 09/09/24 1231 DD/ 1229 TD/TT: Draw Tender: [facility] HealthcareRadiology Study observation (narrative)[facility] HealthcareXR ABDOMEN 1VOrdered By: Radiologist Radiology on 67-33-6492TEEBBarnes-Jewish Saint [facility] Hospital Work Phone: all CBC WITH AUTO DIFFon 30-26-7108MBVFXYSUE ABSOLUTE AUTO0.1NOMS HealthcareBasophils/100 WBC (Bld)0.9 %0.2 - 2.0 %[facility] Healthcare Eosinophils/100 WBC (Bld)8.7 %High0.9 - 7.0 %[facility] HealthcareErythrocyte distribution width (RBC) [Ratio]12.8 %11.0 - 15.0 %NOM HealthcareHematocrit (Bld) [Volume fraction]40.1 %36.0 - 48.0 %[facility] Peters HospitalHemoglobin (Bld) [Mass/Vol]12.8 g/dL12.0 - 16.0 g/dLBarnes-Jewish Saint Peters HospitalIMMATURE GRANULOCYTES ABS AUTO 0.01NOMS HealthcareImmature granulocytes/100 WBC (Bld)0.1 %0.0 - 0.5 %[facility] HospitalInterpretation and review of laboratory resultsAbnormalNOBoone Hospital Center LYMPHOCYTES ABSOLUTE AUTO2.7NOBoone Hospital CenterLymphocytes/100 WBC (Bld)38.7 %20.5 - 60.0 %[facility] HospitalMCH (RBC) [Entitic mass]29 pg26.7 - 34.0 pgNOBoone Hospital Center MCHC (RBC) [Mass/Vol]31.9 g/dL29.9 - 35.2 g/dLBarnes-Jewish Saint Peters HospitalMCV (RBC) [Entitic vol]90.7 fL81.0 - 99.0 fLNOBoone Hospital CenterMONOCYTES ABSOLUTE AUTO0.7NOKY HealthcareMonocytes/100 WBC (Bld)10.1 %1.7 - 12.0 %NOMS HealthcareNEUTROPHILS ABSOLUTE AUTO2.9NOMS HealthcareNeutrophils/100 WBC (Bld)41.5 %Low43.0 - 75.0 % NOMS HealthcarePlatelet mean volume (Bld) [Entitic vol]10.7 fL9.5 - 13.5 fLNOMS HealthcareTBH EO #0.6NOMS HealthcareTBH SKI548ZGLE HealthcareTBH RBC4.42NOMS HealthcareTBH [id number] HealthcareCLINISYNCNOMS HealthcareCNOVon 65-61-1617CMSX Office Visit (ORTHST) STACEY SAHU ([id number]) 1975 F Date Time Provider Department 07/30/24 [...] 07/01/2024 Encounter Status:Closed by LOIS MCKEON on 07/30/24NoMer[facility] Panel InformationOrdered By: Radiologist Radiology on 27-34-8573[facility] Work Phone: xr HIP 3V PELV+ AP/LAT RTon 07-30-2024* * *Final Report* * * DATE OF [...] which may be external to the patient. Draw Tender: PSCB Transcribe Date/Time: Jul 30 2024 2:30P Dictated by : OLVIN HOLDER MD This examination was interpreted and the report reviewed and electronically signed by: OLVIN HOLDER MD on Jul 30 2024 2:32PM EST [id number]_IDC^SI^ACNCCFRadiology, Radiologist, - 07/30/2024 * * *Final Report* [...] which may be external to the patient. Draw Tender: [facility] Transcribe Date/Time: Jul 30 2024 2:30P Dictated by : OLVIN HOLDER MD This examination was interpreted and the report reviewed and electronically signed by: OLVIN HOLDER MD on Jul 30 2024 2:32PM EST [id number]_IDC^SI^ACN NOMS HealthcareXR HIP 3V PELV+ AP/LAT RT* * *Final Report* * * DATE OF [...] which may be external to the patient. Draw Tender: [facility] Transcribe Date/Time: Jul 30 2024 2:30P Dictated by : OLVIN HOLDER MD This examination was interpreted and the report reviewed and electronically signed by: OLVIN HOLDER MD on Jul 30 2024 2:32PM EST [id number]_[id number] Va Medical CenterRadiology Study observation (narrative)NOMS HealthcareXR Pelvis and Hip - right AP and Lateral frogon [id number]: Postoperative changes of right total hip arthroplasty. Nonspecific rounded/disc-like radiodensities overlying the right lower quadrant and iliac wing, which may be external to the patient. Draw Tender: AGAPITO Transcribe Date/Time: Jul 30 2024 2:30P Dictated by : OLVIN HOLDER MD This examination was interpreted and the report reviewed and electronically signed by: OLVIN HOLDER MD on Jul 30 2024 2:32PM EST DIVISION OF RADIOLOGY* * *Final Report* * * DATE OF [...] quadrant and superior iliac wing. DIVISION OF RADIOLOGYProvider, [facility] [place] - 07/30/2024 * * *Final Report* * [...] which may be external to the patient. Draw Tender: PSCB Transcribe Date/Time: Jul 30 2024 2:30P Dictated by : OLVIN HOLDER MD This examination was interpreted and the report reviewed and electronically signed by: OLVIN HOLDER MD on Jul 30 2024 2:32PM EST [facility] HospitalRadiology Study observation (narrative)[facility] [id number] HEALTHHNO ID: [id number] Author: JOSELO GÓMEZ RT(R) Service: Radiology Author [...] PATIENT PRESENTS WITH AN IMPLANTABLE OR ATTACHED MACHINE SHOP SPECIALIST: No RADIOLOGY DEPARTMENT: General X-ray: Exam(s) Completed: Pelvis X-Ray: Pelvis General AP PERIPHERAL IV DATA: Not applicable SIGNED BY: RT Baltazar Cela(R) July 01, 2024 10:58 [facility]NCl[facility] POSTPROC EVALon 07-01-2024 ANES POSTPROC EVALHNO ID: [id number] Author: NAZ HOWE MD Service: Anesthesiology Author Type: Anesthesiologist [...] [M16.11]) Surgeons: Lois Mckeon MD Responsible Provider: Naz Howe MD Anesthesia Type: spinal ASA Status: [...] of care. Anesthesia Observations No Documentation SIGNATURE: Naz Howe MD PATIENT NAME: Stacey Sahu DATE: July 01, 2024 TIME: 12:06 PM CSN: [id number] Valley [facility] PRE-OPon [id number] PRE-OPHNO ID: [id number] Author: NAZ HOWE MD Service: Anesthesiology Author Type: Anesthesiologist Type: Anesthesia Preprocedure Evaluation Filed: 07/01/2024 07:31 Note Text: ANESTHESIOLOGY DAY OF SURGERY NOTE : 1975 Procedure Information Date/Time: 07/01/24 0900 Procedure: ARTHROPLASTY REPLACE JOINT TOTAL HIP (Right: Hip) Location: [place] [address] / OR Surgeons: Lois Mckeon MD Estimated [...] and consent discussed: yes. Patient / Responsible Green Party agrees to proceed: yes Patient / Surrogate [...] 07/01/24 0710 SpO2 98 % 07/01/24 0710 Facility-Administered Medications as of 07/01/2024 Medication Dose Route [...] obtained within 48 hours of Surgery/Procedure. SIGNATURE: Naz Howe MD PATIENT NAME: Stacey Sahu DATE: July 01, 2024 TIME: 7:27 AM CSN: [id number] HospitalBRIEF OP NOTon 07-01-2024 BRIEF OP NOTHNO ID: [id number] Author: MONIK CONSTANTINO MD Service: Orthopaedic Surgery Author Type: Resident Type: Brief Op Note Filed: 07/01/2024 09:54 Note Text: BRIEF OP NOTE LOG ID: [id number] Surgery/Procedure Date: 07/01/2024 Incision/Procedure Start Time: 8:43 AM Incision Close/Procedure End Time: Surgeon(s)/Proceduralist(s) and Doctor Of Osteopathy(s): Surgeons and Role: * Lois Mckeon MD - Primary * Monik Constantino MD - Resident - Assisting Procedure(s): Procedure(s) (LRB): ARTHROPLASTY REPLACE JOINT TOTAL HIP (Right) Anesthesia: Spinal Estimated Blood Loss: 150 mls Specimens: * No specimens in log * Complications: None Pre-Op/Pre-Procedure Diagnosis: R hip OA Post-Op/Post-Procedure Diagnosis: Same Pre-operatively, a complete plan of [...] 01, 2024 TIME: 9:54 AM PAGER/CONTACT #: [phone] HospitalCASE MGT INIT ASSRafi [id number] MGT INIT [facility] ID: [id number] Author: ALISIA GILMORE RN Service: ? Author Type: Registered Nurse Type: Care Mgt Initial Assessment Filed: 07/01/2024 13:31 Note Text: CARE MANAGEMENT: ASSESSMENT AND DISCHARGE PLAN SERVICE DATE: July 01, 2024 SERVICE TIME: 1:29 pm PCP: Pauline Ryan CNP, DIRECTOR OF PERSONNEL Primary Contact: Extended Emergency Contact Information Primary Emergency Contact: Sruthi Sahu Address: [address] [place] [address] Relation: Spouse Admission Status: Extended Recovery Insurance Provider: [facility] MEDICAID OF [place] Discharge Planning requested by: Per Department Practice Potential Transition Plans Home;Home Care Advance Directives Current Advance Directive: None Inspector Tubes Attempted to Assist with AD Completion: Yes Action: Education Provided Current Living Arrangements and Support Lives with: Spouse/significant other Type of Residence: Private Residence (House) Support: Spouse/significant other How do you manage to accomplish the following: Independent: Ambulation;Bathe/Shower;Dress;Meals/Meal Prep;Going to the bathroom;Medication Management;Transportation to appointments/community Current Services/Equipment Current Post-Acute Service(s): DME Current DME Type: Walker Discharge Planning Patient Goal(s): General wellness, Be able to go home [place] of Choice Explained: [place] of Choice Given: Yes Level of Care Discussed: Home Care Are you interested in bedside delivery of your medications? Yes Discharge Planning Participant(s): Patient;Spouse/significant other Needs Prior to Discharge: Needs Prior to Discharge: To Be Determined;Discharge Prescriptions Post-Acute Discharge Plan: Procedure(s): Procedure(s) (LRB): [...] Sahu DATE: July 01, 2024 TIME: 1:29 [facility] [id number] ID: [id number] Author: REGINE MTZ MD Service: General Internal Medicine Author Type: Physician Type: Consults Filed: 07/01/2024 14:04 Note Text: INTERNAL MEDICINE CONSULT HISTORY AND PHYSICAL PLEASE DO NOT REMOVE FROM THE CHART OR MODIFY PRINTED COPY Patient Name: Stacey Sahu PRIMARY CARE PHYSICIAN: Pauline Ryan, DIRECTOR OF PERSONNEL, DIRECTOR OF PERSONNEL CONSULTING PHYSICIAN: Lois Mckeon MD MD DATE [...] SKIN: Negative for lesions, rash, and itching HEMATOLOGY/LYMPHOLOGY: Negative for prolonged bleeding, bruising easily or [...] discussed with the patient. IN-PATIENT MEDICATIONS: Current Facility-Administered Medications Medication Dose Route Frequency ARIPiprazole 30 mg tab(s) (ABILIFY) 30 mg ORAL DAILY ceFAZolin iv piggyback 2 g in D5W (iso-osmotic) 100 mL (ANCEF) 2 g INTRAVENOUS q 8 HR [START ON 07/02/2024] aspirin, enteric coated 81 mg tab(s) 81 mg ORAL BID NaCl 0.9% iv flush bag 20 (more content not included)...[facility] NURSING PROGon [id number] TRISH ID: [id number] Author: DINORAH NICOLAS RN Service: Nursing Author Type: Registered Nurse Type: Nursing Progress Note Filed: 07/01/2024 15:53 Note Text: Discharge education completed with patient and spouse. All questions answered at this time. Pt left unit via wheelchair with transport staff.[facility]ittman HospitalOPERATIVE NOon [id number] NOHNO ID: [id number] Author: LOIS MCKEON MD Service: Orthopaedic Surgery Author Type: Physician Type: Operative Report Filed: 07/01/2024 10:57 Note Text: OPERATIVE/PROCEDURE REPORT LOG ID: [id number] Surgery/Procedure Date: 07/01/2024 Incision/Procedure Start Time: 8:43 AM Incision Close/Procedure End Time: 10:11 AM Surgeon(s)/Proceduralist(s) and Doctor Of Osteopathy(s): Surgeons and Role: * Lois Mckeon MD [...] Implant Name Type Inv. Item Serial No. Manager Utilization Lot No. LRB No. Used Action PIN STEINMANN 3/16IN STAINLESS STEEL 9IN FIXATION TROCAR POINT ONE END - [id number] Pin PIN STEINMANN 3/16IN STAINLESS STEEL 9IN FIXATION TROCAR POINT ONE END BRASSELER [id number] Right 1 Non-Implant INSERT ACETABULAR 32MM 0D D HIP X3 TRIDENT STERILE LATEX FREE - [id number] Joint - Hip INSERT ACETABULAR 32MM 0D D HIP X3 TRIDENT STERILE LATEX FREE AYDEE [id number] Right 1 Implanted SHELL TRIDENT II 48MM D TRITANIUM ACETABULAR 3 SCREW HOLE CLUSTER STERILE - [id number] Joint - Hip SHELL TRIDENT II 48MM D TRITANIUM ACETABULAR 3 SCREW HOLE CLUSTER STERILE [employer] [id number] Right 1 Implanted SCREW TRIDENT II 6.5MM 30MM BONE LOW PROFILE HEXAGONAL STERILE - [id number] Screw SCREW TRIDENT II 6.5MM 30MM BONE LOW PROFILE HEXAGONAL STERILE [facility] [id number] Right 1 Implanted STEM FEMORAL 8X99MM SIZE 2 HIGH INSIGNIA COLLARED - [id number] Joint - Hip STEM FEMORAL 8X99MM SIZE 2 HIGH INSIGNIA COLLARED AYDEE [id number] Right 1 Implanted HEAD V40 32MM -4MM OFFSET TAPER BIOLOX DELTA FEMORAL HIP - [id number] Joint - Hip HEAD V40 32MM -4MM OFFSET TAPER BIOLOX DELTA FEMORAL HIP [facility] [id number] Right 1 Implanted Problem List: ACTIVE PROBLEM LIST (spontaneous vaginal delivery) x 4 Crohn's disease without complication (HCC) [id number] Pulmonary Htn (Hcc) Obese Nirmala (Obstructive Sleep [...] 0 suture. Subcutaneous ti (more content not included)...[facility] HospitalTHERAPY NTon [id number] NTO ID: [id number] Author: MARZENA MARAVILLA OT/L Service: Occupational Therapy Author Type: Occupational Therapist Type: Therapy (PT/OT/Speech/Resp) Filed: 07/01/2024 14:14 Note Text: Occupational Therapy Evaluation Summary SERVICE DATE: 07/01/2024 SERVICE TIME: 1350 to 1405 ROOM: [place] [address] OT 6 Clicks Score: 22 Total Joint [...] (minutes): 15 TRAINING AND EDUCATION PROVIDED Activity Adaptation/Compensatory Strategies, Adaptive Equipment/DME, Assistive Device Use, Bed Mobility, Benefits of In-Hospital Mobility, Discharge Planning, Expected Functional Level, Functional Mobility Involving ADLs, Home Set-up/Modifications, Lower Extremity Bathing, Lower Extremity Dressing, Positioning, Precautions/Restrictions, Role of Occupational Therapy, Standing Balance to Improve [place] with ADLs/Self-Care, Transfer - Car, Toileting , [...] Minimal Assistance, Additional Information with use of storage receipt poster, family plans to assist with socks Toileting [...] Self Care/Home Management, Functional Mobility Training SIGNATURE: Marzena Maravilla OT/Jose PATIENT NAME: Stacey Sahu DATE: July 01, 2024 TIME: 2:14 [facility] [id number] Author: ANIYA SHAH, PT Service: Physical Therapy Author Type: Physical Therapist Type: Therapy (PT/OT/Speech/Resp) Filed: 07/01/2024 13:52 Note Text: Physical Therapy Evaluation Summary SERVICE DATE: 07/01/2024 SERVICE TIME: 1307 to 1346 ROOM: [place] [address] PT 6 Clicks Score: 22 Total Joint [...] on feet TREATMENT INTERVENTIONS Evaluation, Therapeutic Exercise (45645), Gait Training (93955) Timed Code Treatment (minutes): 24 Skilled Treatment Time (minutes): 39 TRAINING AND EDUCATION PROVIDED Anatomy and Impact on Deficits, Assistive Device Use, Bed Mobility, Discharge Planning, Disease Specific Education, Edema Management, Equipment, Exercise Program, Expected Functional Level, Gait Pattern, Reduction of Deviations, Handout Issued, Positioning, Precautions/Restrictions, Role of Physical Therapy, Stair Navigation, Transfers [...] By Assistance Gait Device: Wheeled Walker General Deviations/Observations: Antalgic gait, Gayle decreased (R LE abducted throughout gait cycle) Gait Distance (feet): 300' Gait Deviations Right Lower Extremity: Stance time decreased, Weight bearing decreased Gait Deviations Left Lower Extremity: Step length decreased Stairs Minimal Assistance, Additional Information Stairs Device: Rail, Hand Held Assist Number of Stairs: 3 Patient does not have a cane. Used ELECTRICIAN HELPER AUTOMOTIVE to simulate cane GOALS Patient will demonstrate progress with functional mobility to allow safe discharge to home with available support and/or physical assistance. Rehab Potential: Good Progress Toward Goals: Progressing as expected PLAN PT Frequency: Once Daily Treatment Interventions: Education, Joint Mobility, Strengthening, Functional Mobility Training Plan for Next Visit: Bed Mobility, Edema Management, Gait Training, Exercise Instruction/Handout, Sit to Stand Transfers, Stair Training, Walker Training SIGNATURE: Aniya Shah PT PATIENT NAME: Stacey Sahu DATE: July 01, 2024 TIME: 1:51 [facility] 1V APon [id number] PELVIS 1V AP* * *Final Report* * * DATE OF [...] recent surgery. Please see detailed operative report. Draw Tender: AGAPITO Transcribe Date/Time: Jul 01 2024 11:05A Dictated by : CHELY YU MD This examination was interpreted and the report reviewed and electronically signed by: CHELY YU MD on Jul 01 2024 11:05AM EST [id number] Lady of Mercy Hospital - AndersonXR PELVIS 1V AP* * *Final Report* * * DATE OF [...] Intraoperative examination for surgical planning and documentation. Draw Tender: AGAPITO Transcribe Date/Time: Jul 01 2024 11:01A Dictated by : RADHA CARVAJAL DO This examination was interpreted and the report reviewed and electronically signed by: RADHA CARVAJAL DO on Jul 01 2024 11:02AM EST [id number] Memorial HospitalURINE CULTURE, ROUTINEon 06-11-2024 Bacteria identified Cx Nom (U) Urine Culture, Routine NOMS HealthcareBacteria identified Cx Nom (U)Mixed urogenital floraNOMS HealthcareBacteria identified Cx Nom (U)10,000-25,000 colony forming units per mLNOMS HealthcareBacteria identified Cx Nom (U)Performed at: [facility] LabWal[facility]. [facility] NOMS HealthcareBacteria identified Cx Nom (U)[address] [place] [address] [id number] HealthcareBacteria identified Cx Nom (U)Furnace Repairer Helper: Avni Schmid PhD, Phone: [phone] HealthcareCLINISYNCNOMS HealthcareBasic metabolic 2000 panelon 54-65-7876Nplap gap [Moles/Vol]11 mmol/LNormal8-15 [facility] on above:Order Comment: Specimen Type: BLOOD SPECIMEN Ordering Facility: [facility] Address: [address] [place], [place] [address]Performed By: #### 81706-1, 41231- 2, 2276-4 #### [facility] CLIA [id number] [address] [place] [address] [place] OF AMERICACalcium [Mass/Vol]9.6 mg/dL Normal8.5-10.2COhioHealth O'Bleness Hospital on above:Order Comment: Specimen Type: BLOOD SPECIMEN [facility]ing Facility: [facility] Address: [address] [place], [place] [address]Performed By: #### 62428-7, 29364- 2, 227-4 #### [facility] CLIA [id number] [address] [place] [address] [place] AMERICAChloride [Moles/Vol]104 mmol/JUjcave67-571QtabwsejcTriHealth McCullough-Hy[facility] Hospital on above:Order Comment: Specimen Type: BLOOD SPECIMEN [facility] Facility: [facility] Address: [address] [place], [place] [address]Performed By: #### 97683-0, 84240- 2, 2275- #### [facility] CLIA [id number] [address] [place] [address] [place] AMERICACO2 [Moles/Vol]25 mmol/L Owbucl76-03AwnoishrkTriHealth McCullough-[facility] Hospital on above:Order Comment: Specimen Type: BLOOD SPECIMEN [facility]ing Facility: [facility] Address: [address] [place], [place] [address]Performed By: #### 42359-9, 59901- 2, 2275-09 #### [facility] CLIA [id number] [address] [place] [address] [place] AMERICACreatinine [Mass/Vol]0.70 mg/dLNormal0.58-0.96[facility] on above:Order Comment: Specimen Type: BLOOD SPECIMEN [facility] Facility: [facility] Address: [address] [place], [place] [address]Performed By: #### 21106-4, 73741- 2, 2275-09 #### [facility] IA [id number] [address] [place] [address] [place] AMERICACreatinine and Glomerular filtration rate.predicted panel (S/P/Bld)108 mL/min/1.73m???Normal>=60[facility] on above:Order Comment: Specimen Type: BLOOD SPECIMEN Ordering Facility: [facility] Address: [address] [place], [place] [address]Result Comment: Estimated Glomerular Filtration Rate (eGFR) is calculated using the 2020 CKD-EPI cre atinine equation. This equation utilizes serum creatinine, sex, and age as parameters. The creatinine assay has traceable calibration to isotope dilution- mass spectrometry. Refer to KDIGO guidelines for clinical interpretation. In patients with unstable renal function, e.g. those with acute kidney injury, the eGFR may not accurately reflect actual GFR.Performed By: #### 43735-0, 33581-7, 2275- #### [facility] CLIA [id number] [address] [place] [address] [place] AMERICAGlucose [Mass/Vol]88 mg/dL Ieucxv27-44QpvkhejxrTriHealth McCullough-Hy[facility] Hospital on above:Order Comment: Specimen Type: BLOOD SPECIMEN Ordering Facility: [facility] Address: [address] [place], [place] [address]Result Comment: The [place] Diabetes Association (ADA) provides guidance for cutoff [...] Standards of Medical Care in Diabetes 2016, [place] Diabetes Association. Diabetes Care. 2016.39(Suppl 1).Performed By: #### 95333-7, 77004- 2, 2275-09 #### [facility] CLIA [id number] [address] [place], [place] [address] [place] OF AMERICAPotassium [Moles/Vol]4.9 mmol/LNormal3.7-5.1COhioHealth O'Bleness Hospital on above:Order Comment: Specimen Type: BLOOD SPECIMEN [facility]ing Facility: [facility] Address: [address] [place], [place] [address]Performed By: #### 84577-3, 47628- 2, 2275- #### [facility] CLIA [id number] [address] [place] [address] [place] AMERICASodium [Moles/Vol]140 mmol/L Twngav093-393WtzofxvbtTriHealth McCullough-Hy[facility] Hospital on above:Order Comment: Specimen Type: BLOOD SPECIMEN [facility] Facility: [facility] Address: [address] [place], [place] [address]Performed By: #### 73876-9, 20375- 2, 6-4 #### [facility] CLIA [id number] [address] [place] [address] [place] AMERICAUrea nitrogen [Mass/Vol]17 mg/dLNormal7-21[facility] on above:Order Comment: Specimen Type: BLOOD SPECIMEN [facility]ing Facility: [facility] Address: [address] [place], [place] [address]Performed By: #### 94482-5, 96320- 2, 2275-09 #### [facility] CLIA [id number] [address] [place] [address] [place] AMERICACB W Auto Differential panel (Bld)on 45-84-3300Swfhoblym (Bld) [#/Vol]0.10 10*3/uLNormal<0.11COhioHealth O'Blen[facility] on above:Order Comment: Specimen Type: BLOOD SPECIMEN [facility]ing Facility[facility] Address: [address] [place], [place] [address]Performed By: #### 57752-9, 01350- 2, 2275- #### [facility] CLIA [id number] [address] [place] [address] [place] AMERICABasophils/100 WBC (Bld)1.2 % NormalTriHealth McCullough-Hyde Memorial Hospital on above:Order Comment: Specimen Type: BLOOD SPECIMEN Ordering Facility[facility] Address: [address] [place], [place] [address]Performed By: #### 80096-7, 50168- 2, 2275- #### [facility] CLIA [id number] [address] [place] [address] [place] AMERICADifferential cell count method Nom (Bld)AutoNormalCOhioHealth O'Bleness Hospital on above:Order Comment: Specimen Type: BLOOD SPECIMEN [facility]ing Facility: [facility] Address: [address] [place], [place] [address]Performed By: #### 17528-6, 87448- 2, 6-4 #### [facility] CLIA [id number] [address] [place] [address] [place] AMERICAEosinophils (Bld) [#/Vol] 0.52 10*3/uLHigh<0.46[facility] on above:Order Comment: Specimen Type: BLOOD SPECIMEN [facility]ing Facility: [facility] Address: [address] [place], [place] [address]Performed By: #### 51445-2, 06541- 2, 2275-09 #### [facility] CLIA [id number] [address] [place] [address] [place] AMERICAEosinophils/100 WBC (Bld)6.0 %NormalTriHealth McCullough-Hyde Memorial Hospital on above:Order Comment: Specimen Type: BLOOD SPECIMEN [facility] Facility[facility] Address: [address] [place], [place] [address]Performed By: #### 45263-2, 09008- 2, 2275-4 #### [facility] CLIA [id number] [address] [place] [address] [place] AMERICAErythrocyte distribution width (RBC) [Ratio]12.5 %Wpfnch83.5-15.0[facility] on above:Order Comment: Specimen Type: BLOOD SPECIMEN [facility]ing Facility[facility] Address: [address] [place], [place] [address]Performed By: #### 76108-1, 91493- 2, 2275-4 #### [facility] CLIA [id number] [address] [place] [address] [place] AMERICAHematocrit (Bld) [Volume fraction]44.2 %Dxmkhy64.0-46.0[facility] on above:Order Comment: Specimen Type: BLOOD SPECIMEN [facility] Facility[facility] Address: [address] [place], [place] [address]Performed By: #### 20789-9, 22794- 2, 2275-4 #### [facility] CLIA [id number] [address] [place] [address] [place] AMERICAHemoglobin (Bld) [Mass/Vol] 13.8 g/hJDrxhrk95.5-15.5COhioHealth O'Blen[facility] Hospital on above:Order Comment: Specimen Type: BLOOD SPECIMEN [facility] Facility[facility] Address: [address] [place], [place] [address]Performed By: #### 19483-5, 34893- 2, 2275-09 #### [facility] CLIA [id number] [address] [place] [address] [place] AMERICAImmature granulocytes (Bld) [#/Vol]10*3/uLNormal<0.10[facility] on above:Order Comment: Specimen Type: BLOOD SPECIMEN [facility] Facility[facility] Address: [address] [place], [place] [address]Performed By: #### 68020-5, 69507- 2, 4 #### [facility] CLIA [id number] [address] [place] [address] [place] AMERICAImmature granulocytes/100 WBC (Bld)0.2 %NormalTriHealth McCullough-[facility]de [facility] on above:Order Comment: Specimen Type: BLOOD SPECIMEN [facility] Facility[facility] Address: [address] [place], [place] [address]Performed By: #### 01432-7, 87647- 2, 2275-4 #### [facility] CLIA [id number] [address] [place] [address] [place] OF AMERICALymphocytes (Bld) [#/Vol] 2.89 10*3/uLNormal1.00-4.00[facility] on above:Order Comment: Specimen Type: BLOOD SPECIMEN [facility] Facility[facility] Address: [address] [place], [place] [address]Performed By: #### 49170-9, 42908- 2, 2275-4 #### [facility] CLIA [id number] [address] [place] [address] [place] [facility]UMBERLAND HOSPITALLymphocytes/100 WBC (Bld) 33.4 %NormalTriHealth McCullough-Hyde Memorial Hospital on above:Order Comment: Specimen Type: BLOOD SPECIMEN [facility] Facility[facility] Address: [address] [place], [place] [address]Performed By: #### 28786-6, 03967- 2, 2275-09 #### [facility] CLIA [id number] [address] [place], [place] [address]H (RBC) [Entitic mass]28.6 ffXufwui73.0-34.0[facility] on above:Order Comment: Specimen Type: BLOOD SPECIMEN [facility] Facility[facility] Address: [address] [place], [place] [address]Performed By: #### 32615-2, 39132- 2, 2275-09 #### [facility] CLIA [id number] [address] [place], [place] [address]MCHC (RBC) [Mass/Vol]31.2 g/pLManzsi91.5-36.0[facility] on above:Order Comment: Specimen Type: BLOOD SPECIMEN [facility] Facility[facility] Address: [address] [place], [place] [address]Performed By: #### 79254-8, 69140- 2, 2275-09 #### [facility] CLIA [id number] [address] [place] [address] (RBC) [Entitic vol]91.5 dQFhwuah79.0-100.0[facility] on above:Order Comment: Specimen Type: BLOOD SPECIMEN [facility] Facility[facility] Address: [address] [place], [place] [address]Performed By: #### 11859-5, 17231- 2, 2275-4 #### [facility] CLIA [id number] [address] [place] [address] [place] OF AMERICAMonocytes (Bld) [#/Vol]0.66 10*3/uLNormal<0.87[facility] on above:Order Comment: Specimen Type: BLOOD SPECIMEN [facility] Facility[facility] Address: [address] [place], [place] [address]Performed By: #### 78546-9, 63754- 2, 2275-09 #### [facility] CLIA [id number] [address] [place] [address] [place] AMERICAMonocytes/100 WBC (Bld)7.6 % NormalTriHealth McCull[facility] on above:Order Comment: Specimen Type: BLOOD SPECIMEN [facility] Facility[facility] Address: [address] [place], [place] [address]Performed By: #### 14872-1, 85393- 2, 2275-09 #### [facility] CLIA [id number] [address] [place] [address] [place] AMERICANeutrophils (Bld) [#/Vol] 4.45 10*3/uLNormal1.45-7.50[facility] on above:Order Comment: Specimen Type: BLOOD SPECIMEN [facility] Address: [address] [place], [place] [address]Performed By: #### 28868-3, 63992- 2, 2275-09 #### [facility] CLIA [id number] [address] [place] [address] [place] AMERICANeutrophils/100 WBC (Bld) 51.6 %NormalTriHealth McCullough-Hyde Memorial Hospital on above:Order Comment: Specimen Type: BLOOD SPECIMEN [facility] Address: [address] [place], [place] [address]Performed By: #### 44721-5, 28265- 2, 2275-09 #### [facility] CLIA [id number] [address] [place] [address] [place] OF AMERICANucleated RBC (Bld) [#/Vol] 10*3/uLNormal<0.01[facility] on above:Order Comment: Specimen Type: BLOOD SPECIMEN [facility] Address: [address] [place], [place] [address]Performed By: #### 54593-3, 38259- 2, 2275-09 #### [facility] CLIA [id number] [address] [place] [address] [place] AMERICANucleated RBC/100 WBC (Bld) [Ratio]0.0 /100 WBCNormalCOhioHealth O'Bleness Hospital on above:Order Comment: Specimen Type: BLOOD SPECIMEN [facility] Address: [address] [place], [place] [address]Performed By: #### 04105-1, 05924- 2, 2275-09 #### [facility] CLIA [id number] [address] [place] [address] [place] AMERICAPlatelet mean volume (Bld) [Entitic vol]11.5 fLNormal9.0-12.7COhioHealth O'Bleness Hospital on above: Order Comment: Specimen Type: BLOOD SPECIMEN [facility] Address: [address] [place], [place] [address]Performed By: #### 46586-3, - 2, 2275-09 #### [facility] CLIA [id number] [address] [place] [address] [place] AMERICAPlatelets (Bld) [#/Vol]319 10*3/eZNwoxrh362-627MjwnjeonoTriHealth McCullough-Hyde Memorial Hospital on above:Order Comment: Specimen Type: BLOOD SPECIMEN [facility] Address: [address] [place], [place] [address]Performed By: #### 64653-1, 81082- 2, 6-4 #### [facility] CLIA [id number] [address] [place] [address] AMERICARBC (Bld) [#/Vol]4.83 10*6/uLNormal3.90-5.20[facility] on above:Order Comment: Specimen Type: BLOOD SPECIMEN [facility] Facility[facility] Address: [address] [place], [place] [address]Performed By: #### 29893-8, 91762- 2, 6-4 #### [facility] CLIA [id number] [address] [place], [place] [address]WBC (Bld) [#/Vol]8.64 10*3/uLNormal3.70-11.00[facility] on above:Order Comment: Specimen Type: BLOOD SPECIMEN [facility] Address: [address] [place], [place] [address]Performed By: #### 81726-3, 21891- 2, 6-4 #### [facility] CLIA [id number] [address] [place] [address] OF AMERICACC CBC W AUTO DIFF BLDon 52-11-0664Rwyglxukp/100 WBC (Bld)1.2 %NOMS [facility] BASOPHILS # BLD AUTO0.1 NINFreeman Health System DIFFERENTIAL METHOD BLDAutoNOMS [facility] EOSINOPHIL # BLD AUTO0.52HighNIJackson-Madison County General Hospital LYMPHOCYTES # BLD AUTO2.89NOCedar County Memorial Hospital MONOCYTES # BLD AUTO0.66NIJackson-Madison County General Hospital NEUTROPHILS # BLD AUTO4.45NOCedar County Memorial Hospital NRBC # BLD AUTO<0.01NINFNOMS HealthcareCCF NRBC/100 WBC BLD-RTO0/100 WBCCass Medical Center PLATELET # BLD OALZ450JUTCHermann Area District HospitalF PMV BLD AUTO11.5 fL9.0 - 12.7 fLCass Medical Center WBC # BLD AUTO8.64NOBoone Hospital CenterEosinophils/100 WBC (Bld)6 %[facility] HospitalErythrocyte distribution width (RBC) [Ratio]12.5 %11.5 - 15.0 %[facility] HospitalHematocrit (Bld) [Volume fraction]44.2 %36.0 - 46.0 %[facility] HospitalHemoglobin (Bld) [Mass/Vol]13.8 g/dL 11.5 - 15.5 g/dLCenterPointe Hospital GRANULOCYTES # BLD AUTO<0.03NINFCenterPointe Hospital GRANULOCYTES/LEUK NFR BLD AUTO0.2 %[facility] HospitalInterpretation and review of laboratory resultsAbnormalBarnes-Jewish Saint Peters HospitalLymphocytes/100 WBC (Bld) 33.4 %[facility] Specialty HospitalH (RBC) [Entitic mass]28.6 pg26.0 - 34.0 pgSelect Specialty HospitalHC (RBC) [Mass/Vol]31.2 g/dL30.5 - 36.0 g/dLSelect Specialty HospitalV (RBC) [Entitic vol]91.5 fL80.0 - 100.0 fLBarnes-Jewish Saint Peters HospitalMonocytes/100 WBC (Bld)7.6 % [facility] HospitalNeutrophils/100 WBC (Bld)51.6 %[facility] Peters HospitalRBC (Bld) [#/Vol] 4.83 10*6/uL3.90 - 5.20 m/uLSHRINERS HOSPITALS FOR CHILDREN HealthcareSpecimen Type: BLOOD SPECIMEN [facility] Address: [address] [place] [address] Original Ordering Provider: JOSE PENA [facility] COMPLETEon 94-46-8053BFG COMPLETEVentricular Rate : 79 BPM Atrial Rate : 79 BPM P-R Interval : 124 ms QRS Duration : 102 ms Q-T Interval : 390 ms QTC Calculation(Bazett) : 447 ms Calculated P [place] : 56 degrees Calculated R [place] : 72 degrees Calculated T [place] : 65 degrees NORMAL SINUS RHYTHM NORMAL ECG Confirmed by PETR LUCIANO MD ([id number]) on 2024 2:12:45 PM NAME : STACEY SAHU PID : [id number] : 1975 Gender : Female Race : ORD : [id number] Procedure Date : Jun 05 2024 10:36:34 Edit Date : 2024 14:15:04 Diagnosis: NORMAL SINUS RHYTHM NORMAL ECG Confirmed by PETR LUCIANO MD ([id number]) on 2024 2:12:45 PM Test Reason : PRE OP Location : 545 : [facility] Overread By : PETR LUCIANO MD Edited By : PETR LUCIANO MD Referred By : LOIS MCKEON Acquired by : GERALDOPremier HealthFerritin SerPl-mCncdavid 12-57-1463Qxahuifr [Mass/Vol]129.0 ng/aYJuftxe51.7-205.1CCity HospitalComment on above:Order Comment: Specimen Type: BLOOD SPECIMEN [facility] Address: [address] [place], [place] [address]Performed By: #### 61548-0, 75461- 2, 2276-4 #### [facility] CLIA [id number] [address] [place] [address] OF [facility] CLINIC FOUNDATIONHISTORY PHYSICALon [id number] PHYSICALHNO ID: [id number] Author: JOSE TEJEDA APRN.CNP Service: ? Author Type: Nurse Practitioner Type: H&P Filed: 06/06/2024 10:26 Note Text: [facility] HISTORY AND PHYSICAL EXAMINATION SERVICE DATE: 06/05/2024 SERVICE TIME: 9:56 AM PRIMARY CARE PHYSICIAN: Pauline Ryan CNP, DIRECTOR OF PERSONNEL REASON FOR VISIT: Stacey Sahu is a [...] STOP-Bang Score: 0 (Non-compliant with CPAP ) [id number] Score: Age: <65 Sex: female RNP7PK2-TGZn Score: ARISCAT Score: Age: <=50 Preoperative SpO2: [...] x 4 Crohn's disease without complication (HCC) [id number] Pulmonary Htn (Hcc) Obese Nirmala (Obstructive Sleep [...] Obese NIRMALA (obstructive slee (more content not included)...NormalChillicothe Va Medical CenterIron and Iron binding capacity panelon 74-05-4088Rqxx [Mass/Vol]91 ug/eBJzwyij93-283BgkgczhgiChillicothe Va Medical CenterComhurley medical center on above:Order Comment: Specimen Type: BLOOD SPECIMEN [facility] Address: [address] [place] [address] [place], [place] [address]Nyzpfcpoy By: #### 56447-5, 90642- 2, 2276-4 #### [facility] CLIA [id number] [address] [place] [address] [place] OF AMERICAIron binding capacity [Mass/Vol]NormalTriHealth McCullough-Hyde Memorial Hospital on above:Order Comment: Specimen Type: BLOOD SPECIMEN [facility] Address: [address] [place], [place] [address]Result Comment: Unable to calculate due to hemolysis.Performed By: #### 24530-4, 07622-7, 6-4 #### [facility] CLIA [id number] [address] [place] [address] [place] AMERICAIron/TIBC [Molar ratio] [facility] on above:Order Comment: Specimen Type: BLOOD SPECIMEN [facility] Address: [address] [place], [place] [address]Result Comment: Unable to calculate due to hemolysis.Performed By: #### 31885-3, 45591-7, 6-4 #### [facility] CLIA [id number] [address] [place] [address] [place] AMERICACNPNon 51-52-7128TEPY Telephone (ABHINAV) STACEY SAHU ([id number]) 1975 F Date Time Provider Department 05/09/24 LOIS MCKEON During your visit today, we recorded the following information about you: Carmen Valladares 05/09/2024 12:59 PM Signed PSS calling from Dr Rossi's office to ask how soon the PT could be scheduled for surgery for inspire implant, nerve stimulator. General for 3 hours. Please advise [phone] ask to speak with Alejandra or [place]. Allergies As of Date: 05/09/2024 Noted Allergy Reaction PENICILLINS 07/27/2016 16 - Unknown Date Reviewed: 04/16/2024 Reviewed by: Clarissa Nelson MA - Fully Assessed Reason for Visit: Question [9758] Cmt: See note Prescriptions as of 06/01/2024 [...] Other hyperlipidemia [E78.49] 12/14/2020 Encounter Status:Closed by CARMEN VALLADARES on 06/01/24[facility] [id number] Visit (ORTHST) STACEY SAHU ([id number]) 1975 F Date Time Provider Department 04/16/24 [...] Order(s):CONSULT TO PHYSICAL THERAPY [9032] Order #: [id number]: 1 FUTURE BATH/SHOWER CHAIR [[id number]] Order #: [id number] TOILET RAIL, EACH [[id number]] Order #: [id number] RAISED TOILET SEAT [[id number]] Order #: [id number] WALKER FOLDING WHEELED W/O S [[id number]] Order #: [id number] Prescriptions as of 04/16/2024 - atorvastatin (LIPITOR) [...] 12/14/2020 Encounter Status:Closed by LOIS MCKEON on 04/16/24[facility] [id number] Visit (OTMBHT) STACEY SAHU ([id number]) 1975 F Date Time Provider Department 03/19/24 9:30 AM [facility] During your visit today, we recorded the following information about you: Clarissa Zacarias, PATIENCE 03/19/2024 10:[address] Mckeon has ordered a cream that will be delivered to your home. The company, [employer], will call or text you from a [phone] phone number. Please reply or answer the [...] her quality of life. 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 Pain is in her groin and lateral hip. Pain at rest and with physical activities.Review of systems negative for fever, weight loss, malaise, fatigue, significant headache, vision changes, hearing loss, neck swelling, cough, chest pain, shortness of breath, dyspnea on exertion, abdominal pain, nausea, vomiting, diarrhea, urinary dysfunction, upper/lower extremity numbness/tingling/weakness/edema, heat/cold intolerance Exam mildly antalgic gait. Right [...] - Fully Assessed Reason for Visit: New [[id number]] Cmt: Surgical consult Primary Visit Diagnosis:Pain of right hip [M25.551] Other Visit Diagnosis:Primary osteoarthritis of right hip [M16.11] Order(s):MRI HIP WO IVCON RIGHT [[id number]] Order #: [id number] FUTURE Prescriptions as of 03/19/2024 - atorvastatin [...] be delivered to your home. The company, [employer], will call or text you from a [phone] phone number. Please reply or answer the call to start the process. If you do not hear from them within 48 hours, please call . Letter Text Encounter Status:Closed by LOIS MCKEON on 03/19/24[facility] HealthXR HIP 3V PELV+ AP/LAT RTon 49-90-8763XV HIP 3V PELV+ AP/LAT RT* * *Final Report* * * DATE OF [...] Mild right hip osteoarthritis, similar to 11/17/2021. Draw Tender: AGAPITO Transcribe Date/Time: Mar 19 2024 9:10A Dictated by : MELISSA MODI MD This examination was interpreted and the report reviewed and electronically signed by: MELISSA MODI MD on Mar 19 2024 9:11AM EST [id number] Va Medical CenterXR Pelvis and Hip - right AP and Lateral frogon 55-47-8822MNUWMQETDH: Mild right hip osteoarthritis, similar to 11/17/2021. Draw Tender: PSCB Transcribe Date/Time: Mar 19 2024 9:10A Dictated by : MELISSA MODI MD This examination was interpreted and the report reviewed and electronically signed by: MELISSA MODI MD on Mar 19 2024 9:11AM EST DIVISION OF RADIOLOGY* * *Final Report* * * DATE OF [...] in the right lower quadrant. DIVISION OF RADIOLOGYProvider, [facility] [place] - 03/19/2024 * * *Final Report* * [...] Mild right hip osteoarthritis, similar to 11/17/2021. Draw Tender: AGAPITO Transcribe Date/Time: Mar 19 2024 9:10A Dictated by : MELISSA MODI MD This examination was interpreted and the report reviewed and electronically signed by: MELISSA MODI MD on Mar 19 2024 9:11AM EST [facility] HospitalRadiology Study observation (narrative)[facility] HospitalXR Pelvis and Hip - right AP and Lateral frogOrdered By: Ccf Provider on 03-19-[address] [facility] HospitalCNPNon 92-08-5696TBVCAlkmetliw (OTMBHT) STACEY SAHU ([id number]) 1975 F Date Time Provider Department 03/18/24 LOIS MCKEON OTMBHT During your visit today, we recorded the following information about you: Lupe Betancourt 03/18/2024 4:00 PM Signed Name of Caller: stacey Relationship to patient: patient Last visit in this department: Visit date not found Reason for Call: Other : has questions about what to expect at her appt on 03/19 Callback number: [phone] Clarissa Zacarias RN 03/18/2024 4:57 PM Signed [...] 12/14/2020 Encounter Status:Closed by LUPE BETANCOURT on 03/22/24[facility] LIPID PROFILE (FASTING)on 76-25-3556APSM HDL RATIO3.9NOMS HealthcareComment on above:3.3 - 4.4 LOW RISK 4.4 - 7.1 AVERAGE RISK 7.1 - 11.0 MODERATE RISK >11.0 HIGH RISK Cholesterol [Mass/Vol]227 mg/dLHighNINF - 200 mg/dLNOMS HealthcareCholesterol in HDL [Mass/Vol]58 mg/dL40 - 60 mg/dLNOMS HealthcareComment on above:> or =60 mg/dl - LOW CARDIOVASCULAR RISK <40 mg/dl - HIGH CARDIOVASCULAR RISK Magnesium [Mass/Vol]150.0 mg/dLNOMS HealthcareComment on above:<100 mg/dl OPTIMAL 100-129 mg/dl NEAR OR ABOVE OPTIMAL 130-159 mg/dl BORDERLINE HIGH 160-189 mg/dl HIGH >190 mg/dl VERY HIGH Magnesium [Mass/Vol]19.6 mg/dLBarnes-Jewish Saint Peters HospitalTriglyceride [Mass/Vol]98 mg/dLNINF - 150 mg/dLDoctors Hospital of SpringfieldHP LIVER PANELon 76-21-3895Khundyl [Mass/Vol]3.2 g/dLLow3.4 - 5.0 g/dLBarnes-Jewish Saint Peters HospitalALBUMIN GLOBULIN RATIO1.0[facility] HealthcareALP [Catalytic activity/Vol]59 U/L46 - 116 U/LNOMS HealthcareALT [Catalytic activity/Vol]23 U/L14 - 59 U/LNOMS HealthcareAST [Catalytic activity/Vol]14 U/L Low15 - 37 U/LNOMS HealthcareBilirubin [Mass/Vol]0.3 mg/dL0.2 - 1.0 mg/dLBarnes-Jewish Saint Peters HospitalBilirubin.indirect [Mass/Vol]0.1 mg/dL0.0 - 0.2 mg/dLBarnes-[facility] Globulin (S) [Mass/Vol]3.2 g/dLSHRINERS HOSPITALS FOR CHILDREN HealthcareProtein [Mass/Vol]6.4 g/dL6.4 - 8.2 g/dLBarnes-Jewish Saint Peters HospitalNo Panel Informationon 75-26-4749Sxmcqnnmmohqcy and review of laboratory resultsAbnormWellSpan York HospitalINISYNFormerly [facility] COVID/FLU/RSV RT-PCRon 38-05-6288FYYT-CoV-2 (COVID-19) RNA IZAIAH+probe Ql (Unsp spec)PositiveNouniversity hospital [employer] Other COVID/FLU/RSV RT-PCRNegativeNouniversity hospital [employer] Other CHEMISTRYOrdered By: SYSTEM SYSTEM on 02-01-2023 Albumin [Mass/Vol]4.0 g/dLNormal3.3 - 5.0 gm/dLFT RemisolAlbumin/Globulin [Mass ratio]1.2 {ratio}Normal1.1 - 2.2FTMC RemisolALP [Catalytic activity/Vol]53 [iU]/vCawwbh19 - 98 Int._Unit/LFTMC RemisolALT No additional P-5'-P [Catalytic activity/Vol]18 [iU]/dNormal6 - 46 Int._Unit/LFTMC RemisolAnion gap [Moles/Vol] 13 mmol/LNormal6 - 16 mEq/LFTMC RemisolAST [Catalytic activity/Vol]18 [iU]/d Normal5 - 43 Int._Unit/LFTMC RemisolBilirubin [Mass/Vol]0.4 mg/dLNormal0.0 - 1.1 mg/dLFTMC RemisolCalcium [Mass/Vol]9.1 mg/dLNormal8.9 - 11.1 mg/dLFTMC Remisol Chloride [Moles/Vol]106 mmol/CJnxigu274 - 111 mmol/LFTMC RemisolCO2 [Moles/Vol] 24 mmol/MWmrzpp33 - 31 mmol/LFTMC RemisolCreatinine [Mass/Vol]0.9 mg/dLNormal0.5 - 1.3 mg/dLFTMC RemisolCRP [Mass/Vol]0.7 mg/dLNormal<=1.9mg/dLFTMC Remisol GFR/1.73 sq M.predicted among non-blacks MDRD (S/P/Bld) [Vol rate/Area]80 mL/min/1.73 u2Xgquqz>=59mL/min/1.73 m2FT Chem SGlobulin (S) [Mass/Vol]3.2 g/dL Normal1.4 - 4.0 gm/dLFTMC RemisolGlucose [Mass/Vol]99 mg/bFYjbzya47 - 199 mg/dL FT[facility] RemisolPotassium [Moles/Vol]3.9 mmol/LNormal3.5 - 5.3 mmol/LFTMC Remisol Protein [Mass/Vol]7.2 g/dLNormal6.0 - 7.8 gm/dLFTMC RemisolSodium [Moles/Vol]139 mmol/RLozqce736 - 145 mmol/LFTMC RemisolUrea nitrogen [Mass/Vol]15 mg/dLNormal5 - 21 mg/dLFTMC RemisolUrea nitrogen/Creatinine [Mass ratio]17 mg/gnDywsic95 - 20FTMC RemisolHEMATOLOGYOrdered By: [employer] SYSTEM on 43-99-9877Vryzmuvju/100 WBC (Bld)2.7 %High0.0 - 2.0 %[facility] HemeAutoSSBasophils/Leukocytes Auto (Bld) [Pure # fraction]0.2 E9/LNormal0.0 - 0.2 E9/LFTMC HemeAutoSSEosinophils/100 WBC (Bld)8.5 %High0.0 - 8.0 %[facility] HemeAutoSSEosinophils/Leukocytes Auto (Bld) [Pure # fraction]0.7 E9/LHigh0.0 - 0.5 E9/LFTMC HemeAutoSSLymphocytes/100 WBC (Bld)34.8 %Xqkvyt67.0 - 50.0 %[facility] HemeAutoSSLymphocytes/Leukocytes Auto (Bld) [Pure # fraction]2.8 E9/LNormal1.0 - 4.0 E9/LFTMC HemeAutoSSMonocytes/100 WBC (Bld)9.4 % Normal4.0 - 14.0 %[facility] HemeAutoSSMonocytes/Leukocytes Auto (Bld) [Pure # fraction]0.8 E9/LNormal0.2 - 1.0 E9/LFTMC HemeAutoSSNeutrophils/100 WBC (Bld) 44.6 %Nowqmn61.0 - 75.0 %[facility] HemeAutoSSNeutrophils/Leukocytes Auto (Bld) [Pure # fraction]3.5 E9/LNormal2.0 - 7.5 E9/LFTMC HemeAutoSSHEMATOLOGYOrdered By: Portia Velazquez on 92-03-8547Soxjdwtykww distribution width (RBC) [Ratio]13.6 % Dugdpq85.9 - 14.2 %[facility] HemeAutoSSHematocrit (Bld) [Volume fraction]39.5 %Normal 34.0 - 46.0 %[facility] HemeAutoSSHemoglobin (Bld) [Mass/Vol]13.3 g/yVIofsak88.0 - 16.0 gm/dLFTMC HemeAutoSSMCH (RBC) [Entitic mass]29.1 jsTjgvrv31.0 - 34.0 pgFTMC HemeAutoSSMCHC (RBC) [Mass/Vol]33.7 g/gIWlydwq83.4 - 36.0 gm/dLONECORE HEALTH – [place] HemeAutoSS MCV (RBC) [Entitic vol]86.4 kDNfbfqd45.0 - 100.0 fLONECORE HEALTH – [place] HemeAutoSSPlatelet mean volume (Bld) [Entitic vol]8.9 fLNormal6.4 - 10.8 fLONECORE HEALTH – [place] HemeAutoSSPlatelets (Bld) [#/Vol]274.0 E9/DGtbnte975.0 - 500.0 E9/[facility] HemeAutoSSRBC (Bld) [#/Vol] 4.6 E12/LNormal4.3 - 5.9 E12/LFBAILEY MEDICAL CENTER – [place] HemeAutoSSWBC corrected for nucl RBC Auto (Bld) [#/Vol]8.0 E9/LNormal4.0 - 11.0 E9/LFC HemeAutoSSECHOCARDIO M/2D COMPLETEon 11-10-6007WMPEKHQBVF M/2D COMPLETEPatient: STACEY SAHUMaribel Exam Date: 11/22/2022 : 1975 Gender:F Ordering : [facility] Admission #: [id number] Family : Order #: [id number] CLICK HERE TO VIEW EXAM ECHOCARDIOGRAM REPORT [...] by: Milo Moran M.D. on 11/22/2022 at 17:44[facility] THYROID FN ASP BXon 41-71-1408PZ THYROID FN ASP BX Begin Addendum #1 COLLECTED DATE/TIME: 10/18/2022 13:19 EDT Final Diagnosis Report for [facility] [place] (A/B) SOFT TISSUE MASS CEPHALAD TO THYROID; FINE NEEDLE ASPIRATION: -ATYPIA OF UNDETERMINED SIGNIFICANCE. -CYST CONTENT. NOTE: Sparsely cellular aspirate compromised of follicular cells with architectural atypia. Molecular testing or a repeat aspirate may be helpful if clinically indicated. The final diagnosis is based on a microscopic exam of sales representative door to door sections. 10/25/[address] Tillman. 10/26/2022 verified with Shannan that report was [...] needle aspiration (FNA). 2. Pathology results are pending.NormalThe Regency Hospital Cleveland EastXR KUB 1 VIEWon 65-09-7004PV KUB 1 VIEWEXAMINATION: XR KUB 1 VIEW HISTORY: Kidney stone [...] Electronically authenticated by: PAULETTE GALVAN Date: 2022-10-27 07:[address] [place], [place] [address] NECK ST W CONon [id number] NECK ST W CONEXAMINATION: CT NECK ST W CON HISTORY: Mass [...] enhancement to thyroid gland. LYMPH NODES: No pathological-appearing or enlarged lymph nodes. VASCULATURE: No suspicious abnormality. BONES: No significant osseous lesions. OTHER: No additional imaging findings. IMPRESSION: 1. 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 2. Slightly heterogeneous appearance of thyroid gland; no suspicious nodules. Electronically authenticated by: PREET RODRIGEZ Date: 2022-10-05 08:22[facility] DaytonCARDIAC DENZEL ADMITon [id number] [Catalytic activity/Vol]149 [id number] [facility] EastComment on above:Performed By: #### CMADM, LIPA, CMP ####[facility] [address] [place] [address]DrMaribel Davis.MB [Mass/Vol]1.51 ng/mLNormal<=3.60The [facility] Comment on above:Performed By: #### CMADM, LIPA, CMP ####[facility] [id number] [place] [address]DrMaribel SantizoTROP4.1 pg/mLNormal4.0-51.3The [facility] EastComment on above:Result Comment: CUT-OFF POINTS HAVE BEEN ESTABLISHED BASED ON THE FOURTH UNIVERSAL DEFINITIONS OF MY OCARDIAL INFARCTION. THE UPPER REFERENCE LIMIT (URL) OF TROPONIN, DEFINED THE 99TH PERCENTILE OF cTnI DISTRIBUTION IN A REFERENCE POPULATION, HAS BEEN CONFIRMED THE DECISION THRESHOLD FOR ME DIAGNOSIS.Performed By: #### CMADM, LIPA, CMP ####[facility] [address] [address]Dr. Nita DonatoO47 ng/mL Normal9-82The [facility] EastComment on above:Performed By: #### CMADM, LIPA, CMP ####[facility] [address] [address]Dr. Nita Swann AUTO DIFFon 47-28-6226EAOA #0.1 103/ulNormal0.0-0.1The [facility] EastComment on above:Performed By: #### CBC #### [facility] Laboratory [address] [address] [address] Nita Farrellphils/100 WBC (Bld)0.8 %Normal0.2-2.0[facility] Comment on above:Performed By: #### CBC #### [facility] [address] [address] [address] Yilan ChangEO #0.7 103/ulNormal0.0-0.7The [facility] EastComment on above: Performed By: #### CBC #### [facility] [address] [place] [address] Dr. Nita Leeosinophils/100 WBC (Bld)7.1 %Critically high0.9-7.0The [facility] EastComment on above:Performed By: #### CBC #### [facility] [address] [place] [address] Dr. Nita Leerythrocyte distribution width (RBC) [Ratio]12.3 %Ntdcxo66.0-15.0 The [facility] EastComment on above:Performed By: #### CBC #### [facility] [address] [place] [address] Dr. Nita IversonHematocrit (Bld) [Volume fraction]40.1 %Uzwlbo04.0-48.0The [facility] EastComment on above:Performed By: #### CBC #### [facility] [address] [place] [address] Dr. Nita IversonHemoglobin (Bld) [Mass/Vol]13.6 g/mOGfildv77.0-16.0The [facility] EastComment on above:Performed By: #### CBC #### [facility] [address] [place] [address] Dr. Nita Babin #0.02 10e3/ulNormal0.00-0.03The [facility] EastComment on above:Performed By: #### CBC #### [facility] [address] [place] [address] Dr. Nita Babin %0.2 %Normal0.0-0.5The [facility] EastComment on above: Performed By: #### CBC #### [facility] [address] [place] [address] Dr. Nita BassMPH #3.0 103/ulNormal1.2-3.8The [facility] EastComment on above:Performed By: #### CBC #### [facility] [address] [place] [address] Dr. Nita Bassmphocytes/100 WBC (Bld)30.2 %Wcjnpz85.5-60.0The [facility] EastComment on above:Performed By: #### CBC #### [facility] [address] [place] [address] Dr. Nita Dietz DIFF REQNONormalThe [facility] EastComment on above: Performed By: #### CBC #### [facility] [address] [place] [address] Dr. Nita Pastrana (RBC) [Entitic mass]30.0 byIaeyxi22.7-34.0The [facility] EastComment on above:Performed By: #### CBC #### [facility] [address] [place] [address] Dr. Nita Pastrana (RBC) [Mass/Vol]33.9 g/wKWmnmzs51.9-35.2The [facility] EastComment on above:Performed By: #### CBC #### [facility] [address] [place] [address] Dr. Nita Pastrana (RBC) [Entitic vol]88.3 vVUohvaa79.0-99.0The [facility] EastComment on above:Performed By: #### CBC #### [facility] [address] [place] [address] Dr. Nita Wells #0.8 103/ulNormal0.3-0.8The [facility] EastComment on above:Performed By: #### CBC #### [facility] [address] [place] [address] Dr. Nita Flowerocytes/100 WBC (Bld)7.8 %Normal1.7-12.0The [facility] Comment on above:Performed By: #### CBC #### [facility] [address] [place] [address] Dr. Nita Orr #5.4 103/ulNormal1.4-6.5The [facility] EastComment on above:Performed By: #### CBC #### [facility] [address] [place] [address] Dr. Nita Hathawayutrophils/100 WBC (Bld)53.9 %Syqgaq32.0-75.0The [facility] EastComment on above:Performed By: #### CBC #### [facility] [address] [place] [address] Dr. Nita IversonPlatelet mean volume (Bld) [Entitic vol]10.4 fLNormal9.5-13.5The [facility] EastComment on above:Performed By: #### CBC #### [facility] [address] [place] [address] Dr. Nita IversonPLT270 103/kpIqssal804-327Ovp [facility] EastComment on above: Performed By: #### CBC #### [facility] [address] [place] [address] Dr. Nita IversonRBC4.54 106/ulNormal4.20-5.40The [facility] EastComment on above:Performed By: #### CBC #### [facility] [address] [place] [address] Dr. Nita IversonWBC10.0 103/ulNormal4.0-11.0The [facility] EastComment on above:Performed By: #### CBC #### [facility] [address] [place] [address] Dr. Nita IversonCT ABD/PELV W CONon 53-10-2315DO ABD/PELV W CONEXAMINATION: CT ABDOMEN AND PELVIS WITH IV CONTRAST [...] Lymph nodes: No abdominal or pelvic lymphadenopathy. Mesentery/Peritoneum: No ascites or mass. Retroperitoneum: No mass. [...] Electronically authenticated by: MISTY SPEARS Date: 2022-09-21 21:41Normal [facility] URINE PROFILEon 55-54-5722Insfrrpxa Ql (U)NegativeNormal NEGATIVEDetwiler Memorial HospitalComment on above:Performed By: #### FORTINO CARY PREGU ####[facility] [address] [address]Dr. Yilan ChangClarity (U)CLEARNormalCLEARDetwiler Memorial HospitalComment on above:Performed By: #### FORTINO CARY, PREGU ####[facility] [address] [address]Dr. Jannielan ChangColor (U)LT. YELLOWNormalYELLOWDetwiler Memorial HospitalComment on above:Performed By: #### FORTINO CARY, PREGU ####[facility] [address] [address]Dr. Jannielan ChangEESPERANZADA micrscopic examination will be performed if indicated.NormalThe [facility] EastComment on above:Performed By: #### FRANK CARYR, PREGU ####[facility] [address] [address]Dr. Yilan ChangGlucose Ql (U)NegativeNormalNEGATIVEUniversity Hospitals Geaug[facility] Center HospitalComment on above:Performed By: #### FRANK CARYR, PREGU ####[facility] [address] [address]Dr. Yilan ChangHemoglobin Ql (U)LARGEAbnormalNEGATIVEUniversity Hospitals Geaug[facility] Center HospitalComment on above:Performed By: #### FRANK CARYR, PREGU ####[facility] [address] [address]Dr. Yilan ChangKetones Ql (U) NegativeNormalNEGATIVEUniversity Hospitals Geaug[facility] Center HospitalComment on above:Performed By: #### FRANK CARYR, PREGU ####[facility] [address] [place], [place] [address]Dr. Yilan ChangLEUKOCYTESNegativeNormalNEGATIVEUniversity Hospitals Ge[facility] HospitalComment on above:Performed By: #### FRANK CARYR, PREGU ####[facility] [address] [place], [place] [address]Dr. Yilan ChangNitrite Ql (U)NegativeNormalNEGATIVEUniversity Hospitals Geaug[facility] Center HospitalComment on above:Performed By: #### FRANK CARYR, PREGU ####[facility] [address] [address]Dr. Yilan ChangpH (U)6.5 [pH] Normal5-9The [facility] EastComment on above:Performed By: #### LUIS DANIEL ERUR, PREGU ####[facility] [address] [address]Dr. Yilan ChangSPEC GRAVITY1.101Jigpxp7.005-<=1.025The [facility] Comment on above:Performed By: #### KIMICFRANK MAYR, PREGU ####[facility] [address] [place], [place] [address]Dr. Yilan ChangUA PROTEIN NegativeNormalNEGATIVE/ TRACEThe [facility] HospitalComment on above:Performed By: #### UMICRO, ERUR, PREGU ####[facility] [address] [address]Dr. Nita IversonUR MICRO INDINDICATEDNormalThe [facility] EastComment on above:Performed By: #### KIMICFRANK MAYR, PREGU ####[facility] [address] [address]Dr. Nita Iverson Urobilinogen Qn (U)1.0 {Senait'U}/dLNormal0.2 - 1.0The [facility] HospitalComment on above:Performed By: #### FRANK CARYR, PREGU ####[facility] [address] [address]Dr. Nita IversonLIPASEon 82-45-6986Oumdfo [Catalytic activity/Vol]89.0 U/KOaohii62.0-393.0The [facility] EastComment on above:Performed By: #### CMADM, LIPA, CMP ####[facility] [address] [address]Dr. Nita Iverson URon 64-99-2414SQSZEXMDI, QUALNegativeNormalNEGATIVEThe [facility] EastComment on above:Performed By: #### FORTINO CARY, PREGU ####[facility] [address] [address]Dr. Nita IversonPROF 14(COMP METB)on 99-04-5462Exqapgy [Mass/Vol]3.5 g/dLNormal3.4-5.0The [facility] HospitalComment on above:Performed By: #### CMADM, LIPA, CMP #### [facility] [address] [address] [address] Nita IversonAlbumin/Globulin [Mass ratio]1.0 {ratio}NormalThe [facility] EastComment on above:Performed By: #### CMADM, LIPA, CMP #### [facility] [address] [address] [address] Nita IversonALP [Catalytic activity/Vol]67 U/EIzvrcw05-838Ykp [facility] EastComment on above:Performed By: #### CMADM, LIPA, CMP #### [facility] [address] [address] [address] Nita Reilly [Catalytic activity/Vol]30 U/CXkisit04-02Vzv [facility] EastComment on above:Performed By: #### CMADM, LIPA, CMP #### [facility] [address] [address] [address] Nita Aponteon gap [Moles/Vol]11.8 mmol/LNormalThe [facility] Comment on above:Performed By: #### CMADM, LIPA, CMP #### [facility] [address] [address] [address] Nita Kimbrough [Catalytic activity/Vol]25 U/GGqulcf12-77Brk [facility] EastComment on above:Performed By: #### CMADM, LIPA, CMP #### [facility] [address] [place] [address] Dr. Nita IversonBilirubin [Mass/Vol]0.3 mg/dLNormal0.2-1.0[facility] Comment on above:Performed By: #### CMADM, LIPA, CMP #### [facility] [address] [place] [address] Dr. Nita IversonCalcium [Mass/Vol]9.2 mg/dLNormal8.5-10.1[facility] Comment on above:Performed By: #### CMADM, LIPA, CMP #### [facility] [address] [address] [address] Nita IversonChloride [Moles/Vol]106 mmol/GQfwobx73-316Nhu [facility] Comment on above:Performed By: #### CMADM, LIPA, CMP #### [facility] [address] [place] [address] Dr. Nita IversonCO2 [Moles/Vol]28.7 mmol/MHeivkj88.0-32.0[facility] Comment on above:Performed By: #### CMADM, LIPA, CMP #### [facility] [address] [place] [address] Dr. Nita IversonCreatinine [Mass/Vol]0.81 mg/dLNormal0.55-1.02[facility] HospitalComment on above:Performed By: #### CMADM, LIPA, CMP #### [facility] [address] [address] [address] Nita LeeGFR-AF FINNISH>60Normal>=60The [facility] EastComment on above:Performed By: #### CMADM, LIPA, CMP #### [facility] [address] [address] [address] Nita LeeGFR-NON AF FINNISH>60Normal>=60The [facility] EastComment on above:Performed By: #### CMADM, LIPA, CMP #### [facility] [address] [address] [address] Nita IversonGlobulin (S) [Mass/Vol]3.5 g/dLNormalThe [facility] EastComment on above:Performed By: #### CMADM, LIPA, CMP #### [facility] [address] [address] [address] Nita IversonGlucose [Mass/Vol]106 mg/xUGhvsrw28-377BzxDetw[facility] Hospital Comment on above:Performed By: #### CMADM, LIPA, CMP #### [facility] [address] [address] [address] Nita IversonPotassium [Moles/Vol]4.5 mmol/LNormal3.5-5.1The [facility] Comment on above:Performed By: #### CMADM, LIPA, CMP #### [facility] [address] [address] [address] Nita IversonProtein [Mass/Vol]7.0 g/dLNormal6.4-8.2The [facility] Comment on above:Performed By: #### CMADM, LIPA, CMP #### [facility] [address] [address] [address] Nita IversonSodium [Moles/Vol]142 mmol/JKdwyws815-114SmcDetwiler Memorial Hospital Comment on above:Performed By: #### CMADM, LIPA, CMP #### [facility] [address] [address] [address] Nita Dia nitrogen [Mass/Vol]12.0 mg/dLNormal7.0-18.0The [facility] EastComment on above:Performed By: #### CMADM, LIPA, CMP #### [facility] [address] [address] [address] Nita Dia nitrogen/Creatinine [Mass ratio]14.8 mg/mgNoalThDunlap Memorial HospitalComment on above:Performed By: #### CAPODM, LIPA, CMP #### [facility] [address] [address] [address] Nita Valdez MICROSCOPIC ONLYon 93-97-8404LELQXKMEIQEW SEENNormalNONE SEENThe [facility] EastComment on above:Performed By: #### UMICRO ERUR, PREGU ####[facility] [address] [address]Dr. Nita Rodriguezcteria identified Cx Nom (U)NOT INDICATEDNoSt. Rita's HospitalComment on above:Performed By: #### UMICYADIRA ERUR, PREGU ####[facility] [address] [address]DrMaribel IversonCAST NONE SEENNormalNONE SEENDetwiler Memorial HospitalComment on above:Performed By: #### UMICRO ERUR, PREGU ####[facility] [address] [address]DrMaribel IversonCrystals LM Nom (Urine sed)NONE SEEN NormalNONE SEENDetwiler Memorial HospitalComment on above:Performed By: #### UMICRO, ERUR, PREGU ####[facility] [address] [address]DrMaribel Moya ChangEpithelial cells LM Ql (Urine sed)RARENormalNONE SEEN /RARE The [facility] EastComment on above:Performed By: #### UMICRO, ERUR, PREGU ####[facility] [address] [place], [place] [address]Tw. Nita IversonMUCOUSNONE SEENNormalNONE SEENDetwiler Memorial HospitalComment on above: Performed By: #### FORTINO CARY, PREGU ####[facility] [address] [place], [place] [address]Qf. Nita YrooiEZK15-51Zkulczni9-7Kkb [facility] EastComment on above:Performed By: #### FORTINO CARY, PREGU ####[facility] [address] [place], [place] [address]Np. Nita IversonWBC 2-5AbnormalNONE SEENThe [facility] EastComment on above:Performed By: #### FORTINO CARY, PREGU ####[facility] [address] [place], [place] [address]Uj. Nita Lovelace THYROIDon 50-92-5142QU THYROID EXAMINATION: US THYROID HISTORY: Non-toxic multinodular [...] Electronically authenticated by: PREET RODRIGEZ Date: 2022-09-06 20:19[facility]MRI [facility] WO CONon 16-40-4464NWQ HIP RT WO CONEXAM: MRI HIP RT WO CON HISTORY: Right hip pain COMPARISON: X-rays 07/07/2022 TECHNIQUE: Axial and coronal large rggze-yu-ajuz sequencing through the pelvis and both hips. Small nuhcy-je-dqya coronal, sagittal and axial sequencing through the [...] at approximately the 11:00 position (coronal small ecmhs-py-nrxa 14). The remainder of the labrum exhibits no gross irregularity. The left acetabulum is normal. The bilateral femoral head and acetabular cartilage exhibits no chondral or osteochondral irregularity. The pubic symphysis and sacroiliac joints are normal. Thickening and interstitial edema of the right gluteus medius tendon insertion to the greater trochanter (coronal small bxrsx-rw-caan 13 and axial large hvvdy-zp-vylc 23). Mild amount of adjacent edema. No abnormal bursal fluid collection. Questionable mild thickening and interstitial edema of the left gluteus minimus tendon (coronal large mnynk-qy-tmsg 17 and axial large xwbzw-vb-mhzo 23 and to a lesser degree the gluteus medius tendon (coronal large uzvjd-lj-sddv 21). No tendon tear, tendon tear or [...] Electronically authenticated by: PAULETTE PHIPPS Date: 2022-08-18 22:39[facility] PANEL 2: 30 to 65on 08-11-2022..NormalThe [facility] EastComhurley medical center on above:Result Comment: Performed at: WBPerformed By: #### [id number] ####[facility] [address] [place], [place] [address]DrMaribel Oh Gdln ACOG Awxnmti42-05KfbosjOgoSt. Rita's HospitalComment on above:Performed By: #### [id number] ####[facility] [address] [place], [place] [address]Dr. Nita IversonDIAGNOSIS:CommentMiddletown Hospital on above:Result Comment: NEGATIVE FOR INTRAEPITHELIAL LESION OR MALIGNANCY. Performed at: WBPerformed By: #### [id number] ####[facility] [address] [place], [place] [address]Dr. Nita IversonHPV AptimaNegativeNormal NegativeDetwiler Memorial HospitalComhurley medical center on above:Result Comment: This nucleic acid amplification test detects fourteen high-risk HPV types (16,18,31,33,35,39,45,51,52,56,58,59,66,68) without differentiation. Performed at: =GPerformed By: #### [id number] ####[facility] [address] [place], [place] [address]Dr. Nita IversonHPV Genotype ReflexComment NormalCommunity Memorial Hospital on above:Result Comment: Criteria not met, HPV Genotype not performed. Performed at: WBPerformed By: #### [id number] ####[facility] [address] [place], [place] [address]Dr. Nita IversonMethodology:CommentMiddletown Hospital on above:Result Comment: This liquid based ThinPrep(R) pap test was screened with the use of an image guided system. Performed at: WBPerformed By: #### [id number] ####[facility] [address] [place], [place] [address]DrMaribel IversonNote:CommentMercy Health St. Charles Hospitalment on above:Result Comment: The Pap smear is a screening test designed to aid in the detection of premalignant and malignant conditions of the uterine cervix. It is not a diagnostic procedure and should not be used as the sole means of detecting cervical cancer. Both false-positive and false-negative reports do occur. . Performed at: Performed By: #### [id number] ####[facility] [address] [address]Dr. Nita KishorPerformed by:CommentNoGeorgetown Behavioral Hospital on above:Result Comment: Jordana Pruett, Tile Inspector (ASCP) Performed at: Performed By: #### [id number] ####[facility] [address] [place], [place] [address]Dr. Janniejennifer IversonSpecimen adequacy:Comment NormalCommunity Memorial Hospital on above:Result Comment: Satisfactory for evaluation. No endocervical component is identified. Performed at: [facility] Centerformed By: #### [id number] ####[facility] [address]rt[address]zz[address] [place], [place] [address]Dr. Nita IversonUS PELVIS AND TRANSVAGon 38-03-5403UY PELVIS AND TRANSVAGEXAMINATION: US PELVIS AND TRANSVAG HISTORY: Pelvic and [...] Electronically authenticated by: PAULETTE GALVAN Date: 2022-06-06 17:51[facility] ABD/PELV WO W CONon 64-10-1224IN ABD/PELV WO W CON EXAMINATION: CT ABD/PELV [...] Electronically authenticated by: PREET RODRIGEZ Date: 2022-04-25 08:[address] [place] [address] RENAL W_WO PHARMon 99-86-8742XR RENAL W_WO PHARMEXAMINATION: NM RENAL W_WO PHARM HISTORY: Kidney stone [...] Electronically authenticated by: PAULETTE GALVAN Date: 2022-03-22 17:23[facility] DaytonXR KUB 1 VIEWon 38-21-3609ZA KUB 1 VIEWEXAMINATION: XR KUB 1 VIEW HISTORY: Kidney stone [...] Electronically authenticated by: PAULETTE GALVAN Date: 2022-03-22 17:57[facility] DaytonUS THYROIDon 83-59-1256UM THYROIDEXAMINATION: US THYROID HISTORY: Non-toxic multinodular goiter COMPARISON: [...] Electronically authenticated by: PAULETTE GALVAN Date: 2022-03-09 07:[address] [place] [address] ABD/PELV WO W CONon 45-12-2392KI ABD/PELV WO W CON EXAMINATION: CT ABD/PELV [...] Electronically authenticated by: PREET RODRIGEZ Date: 2022-03-07 16:45[facility] DaytonMG MAMM SCREEN 3D GRACIE CADon 22-03-3998DA MAMM SCREEN 3D GRACIE CAD Patient: STACEY SAHU Exam Date: 02/09/2022 : 1975 Gender:F Ordering : DIRECTOR OF PERSONNEL PAULINE RYAN [facility] Admission #: [id number] Family : Order #: [id number] CLICK HERE TO VIEW EXAM RADIOLOGY REPORT [...] colon cancer at age 56. LOCATION: [facility] BREAST COMPOSITION: Scattered areas fibroglandular density. FINDINGS: [...] by: Preet Rodrigez M.D. on 02/09/2022 at 14:53[facility] DaytonCovid-19 PCR (CVDTBH)on 74-45-0731XXIH-CoV-2 (COVID-19) RNA IZAIAH+probe Ql (Unsp spec)DetectedCritically abnormalNOT DETECTEDThe [facility] EastComment on above:Result Comment: This test is not yet approved or cleared by the [place] FDA. When there are no FDA-approved or cleared tests available, and other criteria are met, FDA can make tests available under an emergency access mechanism called an Emergency Use Authorization (EUA). The EUA for this test is supported by the [employer]ing [employer] Superintendent of Health and Human Service's declaration that circumstances exist to justify the emergency use of in vitro diagnostics for the detection and/or diagnosis of the virusthat causes COVID-19. This EUA will remain in effect for the duration of the COVID-19 declaration justifying emergency of IVDs, unless it is terminated or revoked by the FDA (after which the test mayno longer be used).Performed By: #### CVDTBH #### [facility] [address] [place] [address] Dr. Nita IversonMR femur RT wo/w conon 04-85-8465QH femur RT wo/w [facility] [place] [address] [place] [address] MRI Report Signed Patient: Stacey Sahu MR#: [id number] 240 : 1975 Acct:[id number] Age/Sex: 46 / F ADM Date: 12/03/21 Loc: MR Room: Type: [facility] Attending Dr: Alexis Saenz II, MD [...] M.D.12/04/2021 3:45 PM Dictation Location: [place] [address] Transcribed By: [facility] 12/04/21 1545 Dictated By: Jorge Luis Stock Jr, MD 12/04/21 1519 Signed By: 12/04/21 1545[facility] WestXR [facility] RT 2V*on 11-17-2021 XR femur RT 2V*[facility] Main [place] [address] [place] [address] XRay Report Signed Patient: Stacey Sahu MR#: [id number] 240 : 1975 Acct:[id number] Age/Sex: 46 / F ADM Date: 11/17/21 Loc: [facility] Room: Type: [facility] Attending Dr: Alexis Saenz II, MD Ordering Provider: Alexis Saenz MD Date of Service: 11/17/21 XR/XR hip RT min 2V(w/wo pelvis)*: Right hip pain ([id number]) XR/XR femur RT 2V*: Right hip pain [...] Vipin Iniguez M.D.11/17/2021 3:56 PM Dictation Location: [place] [address] Transcribed By: [facility] 11/17/211555 Dictated By: Vipin Iniguez DO 11/17/211552 Signed By: 11/17/21 155[facility] - WestLarge Joint Arthro/Inj: R greater trochanteric bursAultman Orrville Hospital Vital Signs Date TimeVital SignValuePerforming MefomndnkTexhdonq27-50-0334 11:28-0400Body mass index (BMI) [Ratio]37.86 kg/l5Mtlbns [employer] Work Phone: [phone] HospitalMilnwsjsdg43-77-5195 11:28-0400Body sohfwqdpgob06 [degF]Laxmi Majors [employer] Work Phone: [phone]10-01-2025 11:28-0400Body fjuszc13.63 kgBreann Majors [employer] Work Phone: [phone] [address] [place], [place] [address]Hrbwiddrrw01-46-4615 11:28-0400Diastolic blood pdjomcpd60 mm[Hg]Laxmi Majors LOG CHAIN FEEDER Work Phone: [phone] HospitalVvwdogokpt99-71-6613 11:28-0400Heart rate78 /min Laxmi Majors LOG CH[employer] FEEDER Work Phone: [phone] HospitalCbbnmsdwit87-95-3085 11:28-2063QgE1% (BldA) [Mass fraction]96 %Laxmi Majors LOG CHAIN FEEDER Work Phone: [phone] HospitalXlaywzfguh94-00-1180 11:28-0400Systolic blood zqbzdgcu485 mm[Hg]Laxmi Majors LOG CHAIN FEEDER Work Phone: [facility] HospitalOfcxggjxst63-34-8354 09:56-0400Body mass index (BMI) [Ratio]38.53 kg/j3Mqcmjw Majors LOG CHAIN FEEDER Work Phone: [phone] HospitalIsaafhdnrx75-04-3257 09:56-0400Body temperature 97.3 [degF]Laxmi Majors LOG CHAIN FEEDER Work Phone: [phone] HospitalWymwkekzdc11-70-3776 09:56-0400Body .26 kgBreann Majors LOG CHAIN FEEDER Work Phone: [place] [address]Qyhminjutf46-62-8635 09:56-0400Diastolic blood iomhfluc14 mm[Hg]Laxmi Majors LOG CHAIN FEEDER Work Phone: [place] [address]Jrxrydausz04-44-7276 09:56-0400Heart rate87 /min Laxmi Majors LOG CHAIN FEEDER Work Phone: [place] [address]Hbtzhsqoaf48-62-6559 09:56-0751EhQ7% (BldA) [Mass fraction]97 %Laxmi Majors LOG CHAIN FEEDER Work Phone: [place] [address]Zcqpnptecg18-01-5923 09:56-0400Systolic blood ovtvifeu052 mm[Hg]Laxmi Majors LOG CHAIN FEEDER Work Phone: [place] [address]Ydrgphyxjg03-42-0192 10:56-0400Body .6 cmBreann Majors LOG CHAIN FEEDER Work Phone: [place] [address]Cjcgktmshw06-81-4852 10:56-0400Body mass index (BMI) [Ratio]38.31 kg/u5Xhhjqh Majors LOG CHAIN FEEDER Work Phone: [place] [address]Weosspvzcw21-38-1295 10:56-0400Body temperature 97.3 [degF]Laxmi Majors LOG CHAIN FEEDER Work Phone: [place] [address]Ltmbgfjvvy39-29-3360 10:56-0400Body vdekjf80.72 kgBreann Majors LOG CHAIN FEEDER Work Phone: [place] [address]Zodhhuwhhf36-10-4296 10:56-0400Diastolic blood ggwmilhw32 mm[Hg]Laxmi Majors LOG CHAIN FEEDER Work Phone: [place] [address]Qvvmqgwihg96-22-6068 10:56-0400Heart rate84 /min Laxmi Majors LOG CHAIN FEEDER Work Phone: [place] [address]Vspqjrklpx84-00-2471 10:56-0402ErU6% (BldA) [Mass fraction]98 %Laxmi Majors LOG CHAIN FEEDER Work Phone: [place] [address]Bvmbassxdi66-97-1691 10:56-0400Systolic blood mm[Hg]Laxmi Majors LOG CHAIN FEEDER Work Phone: [facility] HospitalPifydvlhjv67-81-0236 11:33-0400Body pgipkd684.4 cmLisa Aichholz Work Phone: 1(760)759-[facility]07-23-2025 11:33-0400 Body mass index (BMI) [Ratio]39 kg/m2Lisa Aichholz Work Phone: [phone] [place], [place] [address]388207-23-2025 11:33-0400 Body tywdba60.71 kgLisa Aichholz Work Phone: [phone] [place], [place] [address]388207-23-2025 11:33-0400 Diastolic blood fadxvtwl15 mm[Hg]Pauline Aichholz Work Phone: [phone]07-23-2025 11:33-0400 Heart rate73 /minLisa Aichholz Work Phone: [phone] [place], [place] 0388207-23-2025 11:33-0400 SaO2% (BldA) [Mass fraction]97 %Pauline Aichholz Work Phone: 1(470)756-[address] [place], [place] [address]388207-23-2025 11:33-0400 Systolic blood iigjluig996 mm[Hg]Pauline Aichholz Work Phone: 1(398)413-[facility]07-09-2025 13:04-0400 Body mass index (BMI) [Ratio]39.02 kg/m2Lisa Aichholz LOG CHAIN FEEDER Work Phone: [facility] HospitalOhsirycduj42-62-4652 13:04-0400Body temperature 97.81 [degF]Pauline Aichholz LOG CHAIN FEEDER Work Phone: [facility] HospitalRvwiihldfc25-81-0176 13:04-0400Body lonykw76.63 kgLisa Aichholz LOG CHAIN FEEDER Work Phone: [facility] HospitalSrsblhaihb41-12-0975 13:04-0400Diastolic blood yvdnhjan45 mm[Hg]Pauline Aichholz LOG CHAIN FEEDER Work Phone: [facility] HospitalLtfyfcivgx58-69-5883 13:04-0400Heart rate86 /min Pauline Ольгаholz LOG CHAIN FEEDER Work Phone: [facility] HospitalMgupktaxte75-17-0423 13:04-0400Respiratory rate18 /minLisa Aichholz LOG CHAIN FEEDER Work Phone: [facility] HospitalIhtholsapm10-56-9379 13:04-5247AxD7% (BldA) [Mass fraction]97 %Pauline Ольгаholz LOG CHAIN FEEDER Work Phone: [facility] HospitalWdjfrapfnm29-58-0477 13:04-0400Systolic blood gxcviuxs801 mm[Hg]Pauline Rennyhholz LOG CHAIN FEEDER Work Phone: [facility] HospitalEpbhryiahx25-86-3388 13:39-0400Body mass index (BMI) [Ratio]37.89 kg/m2Lisa Rennyhholz LOG CHAIN FEEDER Work Phone: [facility] HospitalHixohlovgf27-66-4313 13:39-0400Body temperature 98.6 [degF]Pauline Ольгаholz LOG CHAIN FEEDER Work Phone: [facility] HospitalEwvfiiequf62-33-3131 13:39-0400Body kg Pauline Ольгаholz LOG CHAIN FEEDER Work Phone: [facility] HospitalEythrztwue43-18-3700 13:39-0400Diastolic blood syidqsau16 mm[Hg]Pauline Ольгаholz LOG CHAIN FEEDER Work Phone: [facility] HospitalHrappasurc08-07-6351 13:39-0400Heart rate99 /min Pauline Ольгаholz LOG CHAIN FEEDER Work Phone: [facility] HospitalQhohbxdnij17-38-2732 13:39-0400Respiratory rate18 /minLisa Aichholz LOG CHAIN FEEDER Work Phone: [facility] HospitalOyohggloax74-85-0031 13:39-6944XnQ1% (BldA) [Mass fraction]98 %Pauline Rennyhholz LOG CHAIN FEEDER Work Phone: [facility] HospitalHpchiktsjm26-03-3642 13:39-0400Systolic blood gxjylkvb118 mm[Hg]Pauline Rennyhholz LOG CHAIN FEEDER Work Phone: [facility] HospitalQexkadbfaj27-15-7844 08:22-0400Body ajpjmf121.4 cmTevin Rossi MD Work Phone: [facility]03-14-2025 08:22-0400Body mass index (BMI) [Ratio]37.34 kg/m2Tevin Rossi MD Work Phone: [facility]03-14-2025 08:22-0400Body fnrviiiezbr92.2 [degF]Tevin Rossi MD Work Phone: [facility]03-14-2025 08:22-0400Body wzdcad18.73 kgTevin Rossi MD Work Phone: [facility]03-05-2025 13:28-0500Body mass index (BMI) [Ratio]37.46 kg/m2Pauline Ryan LOG CHAIN FEEDER Work Phone: [facility] HospitalQhkneudbld87-18-6593 13:28-0500Body temperature 98.49 [degF]Pauline Ryan LOG CHAIN FEEDER Work Phone: [facility] HospitalLhycgqsjej79-37-1494 13:28-0500Body ixgwas29 kg Pauline Shelby LOG CHAIN FEEDER Work Phone: [facility] HospitalCmrmstxkee12-96-3852 13:28-0500Diastolic blood wkrzehkn50 mm[Hg]Pauline Shelby LOG CHAIN FEEDER Work Phone: [facility] HospitalGzmvvuhusy65-07-1648 13:28-0500Heart czwd270 /min Pauline Shelby LOG CHAIN FEEDER Work Phone: [facility] HospitalXaqwmjwref10-08-6569 13:28-0500Respiratory rate18 /minLisa Shelby LOG CHAIN FEEDER Work Phone: [facility] HospitalJmsycpxgcv85-25-9625 13:28-4342LgB4% (BldA) [Mass fraction]98 %Pauline Shelby LOG CHAIN FEEDER Work Phone: [facility] HospitalSlfszljhjq90-51-6325 13:28-0500Systolic blood xbumxnjz702 mm[Hg]Pauline Augustinmataishwarya LOG CHAIN FEEDER Work Phone: [facility] HospitalVpewdampgu32-98-0930 14:34-0500Body kuxuez984.[address]01-28-2025 14:34-0500Body mass index (BMI) [Ratio]38.06 kg/x3Izddq[address]01-28-2025 14:34-0500Body rukevhhyaww94.81 [degF][address]01-28-2025 14:34-0500Body kcwujt86.[address]01-28-2025 14:34-0500Diastolic blood djxlgagi90 mm[Hg][address]01-28-2025 14:34-0500Heart rate93 /min[address]01-28-2025 14:34-0500Respiratory rate16 /min [address]01-28-2025 14:34-7655DkC2% (BldA) [Mass fraction] 99 %[address]01-28-2025 14:34-0500Systolic blood pressure 118 mm[Hg][address]12-11-2024 10:47-0500Diastolic blood skkfwcyp47 mm[Hg]Pacc 3 Work Phone: [facility]12-11-2024 10:47-0500Systolic blood oujzboku830 mm[Hg]Pacc 3 Work Phone: [facility]12-11-2024 10:24-0500Body vwaits038.4 cmPacc 3 Work Phone: [facility]12-11-2024 10:24-0500Body mass index (BMI) [Ratio]37.72 kg/m2Pacc 3 Work Phone: [facility]12-11-2024 10:24-0500Body temperature 97.81 [degF]Pacc 3 Work Phone: [facility]12-11-2024 10:24-0500Body .6 kgPacc 3 Work Phone: [facility]12-11-2024 10:24-0500Heart rate86 /min Pacc 3 Work Phone: [facility]12-11-2024 10:24-0500Respiratory rate 16 /minPacc 3 Work Phone: [facility]12-11-2024 10:24-3901BbE7% (BldA) [Mass fraction]96 %Pacc 3 Work Phone: [facility]12-04-2024 14:40-0500Body ovtklv056.4 Herminio Shelby LOG CHAIN FEEDER Work Phone: [facility] HospitalLwcpefqcyg24-13-1773 14:40-0500Body mass index (BMI) [Ratio]38.04 kg/m2Pauline Shelby LOG CH[employer] FEEDER Work Phone: [facility] HospitalGgdahuftxh22-27-1813 14:40-0500Body temperature 98.1 [degF]Pauline Shelby LOG CH[employer] FEEDER Work Phone: [facility] HospitalEzgeusxerw97-44-2474 14:40-0500Body shomvh59.36 kgPauline Rennymataishwarya LOG CHAIN FEEDER Work Phone: [facility] HospitalWbqqscymlw13-02-1312 14:40-0500Diastolic blood qiltewdf04 mm[Hg]Pauline Shelby LOG CHAIN FEEDER Work Phone: [facility] HospitalSjxsuvkfjt63-50-9675 14:40-0500Heart rate94 /min Pauline Shelby LOG CHAIN FEEDER Work Phone: [place] [address]Brgfpxztft28-34-6751 14:40-0500Respiratory rate18 /minLi Shelby LOG CHAIN FEEDER Work Phone: [place] [address]Lisuixqodj24-19-6465 14:40-4243MeJ8% (BldA) [Mass fraction]98 %Pauline Shelby LOG CH[employer] FEEDER Work Phone: [facility] HospitalGlyvzmsaeo29-92-1354 14:40-0500Systolic blood bmbjybba365 mm[Hg]Pauline Ryan LOG CH[employer] FEEDER Work Phone: [facility] HospitalFhklvgfokv88-21-6444 08:00-0500Body zlmijq374.4 cmTevin Rossi MD Work Phone: [facility]11-22-2024 08:00-0500Body mass index (BMI) [Ratio]38.24 kg/m2Tevin Rossi MD Work Phone: [facility]11-22-2024 08:00-0500Body bgtxeiajekn63.9 [degF]Tevin Rossi MD Work Phone: [facility]11-22-2024 08:00-0500Body funwxw57.81 kgTevin Rossi MD Work Phone: [facility]11-11-2024 14:08-0500Body rfcuve618.[address]11-11-2024 14:08-0500Body mass index (BMI) [Ratio]38.28 kg/b8Pvdme[address]11-11-2024 14:08-0500Body kdxerq01.[address]10-25-2024 08:28-0400Body height 152.4 cmTevin Rossi MD Work Phone: [facility]10-25-2024 08:28-0400Body mass index (BMI) [Ratio]38.24 kg/m2Tevin Rossi MD Work Phone: [facility]10-25-2024 08:28-0400Body ronnvcclxqo97.1 [degF]Tevin Rossi MD Work Phone: [facility]10-25-2024 08:28-0400Body lqthmi82.81 kgTevin Rossi MD Work Phone: [facility]10-16-2024 08:36-0400Body tcklxu734.4 Herminio Ryan LOG CH[employer] FEEDER Work Phone: [facility] HospitalSidlaebujq66-42-5989 08:36-0400Body mass index (BMI) [Ratio]38.16 kg/m2Lisa Abdoulz LOG CH[employer] FEEDER Work Phone: [facility] HospitalBmxryitfxh81-41-9022 08:36-0400Body temperature 98.8 [degF]Pauline Abdoulz LOG CH[employer] FEEDER Work Phone: [facility] HospitalZkatakwdqw99-26-4847 08:36-0400Body fybsit69.63 kgLisa Rolonholz LOG CH[employer] FEEDER Work Phone: [place] [address]Ohgfgoflym99-18-8271 08:36-0400Diastolic blood jsovbmzg36 mm[Hg]Pauline Abdoulz LOG CH[employer] FEEDER Work Phone: [facility] HospitalSmwsktjryw68-12-5475 08:36-0400Heart rate96 /min Pauline Abdoulz LOG CH[employer] FEEDER Work Phone: [facility] HospitalPyjvjijiyo85-64-4340 08:36-0400Respiratory rate18 /minLisa Schreiberz LOG CH[employer] FEEDER Work Phone: [place] [address]Dknndzupzw06-99-9435 08:36-7013FnK1% (BldA) [Mass fraction]98 %Pauline Abdoulz LOG CH[employer] FEEDER Work Phone: [place] [address]Bvykpkdulq43-35-4296 08:36-0400Systolic blood cohduqoq486 mm[Hg]Pauline Abdoulz LOG CH[employer] FEEDER Work Phone: [facility] HospitalPoaacawmnx77-90-2736 08:38-0400Body .4 cmLisa Abdoulz LOG CH[employer] FEEDER Work Phone: [facility] HospitalOulgtlgzgx16-05-7701 08:38-0400Body mass index (BMI) [Ratio]38.28 kg/m2Lisa Ольгаholz LOG CH[employer] FEEDER Work Phone: [place] [address]Helzounpoh43-68-2662 08:38-0400Body temperature 97.81 [degF]Pauline Abdoulz LOG CH[employer] FEEDER Work Phone: [facility] HospitalEvcxmyfgxo52-17-7729 08:38-0400Body gnnizz14.91 kgLisa Ольгаholz LOG CH[employer] FEEDER Work Phone: [facility] HospitalXqfxduvkki44-24-6958 08:38-0400Diastolic blood kjqdewpi06 mm[Hg]Pauline Schreiberz LOG CHAIN FEEDER Work Phone: [facility] HospitalDqmzgxhamr82-19-6214 08:38-0400Heart rate97 /min Pauline Ольгаholz LOG CH[employer] FEEDER Work Phone: [facility] HospitalGzobdvrrge36-52-4014 08:38-0400Respiratory rate18 /minLisa Ольгаholz LOG CH[employer] FEEDER Work Phone: [facility] HospitalKhzepnrtqs71-81-3673 08:38-1811XaY5% (BldA) [Mass fraction]98 %Pauline Ольгаholz LOG CH[employer] FEEDER Work Phone: [facility] HospitalXznsdbstsm92-99-8281 08:38-0400Systolic blood azobuoyy654 mm[Hg]Pauline Оьлгаholz LOG CHAIN FEEDER Work Phone: [facility] HospitalEewqgufcby47-74-8819 09:08-0400Blood Pressure LocationJENNIFER ANGELICA [facility]06-04-2024 09:08-0400Diastolic blood tsykerfp25 mm[Hg]LESLIE ANGELICA [facility]06-04-2024 09:08-0400Heart rate82 /minJENNIFER ANGELICA [facility]06-04-2024 09:08-0400Respiratory rate16 /minJENNIFER ANGELICA [facility]06-04-2024 09:08-0400Systolic blood xyixybdy773 mm[Hg]LESLIE ANGELICA [facility]03-19-2024 07:42-0400Diastolic blood mm[Hg]Imani Krueger APRN-DIRECTOR OF PERSONNEL Work Phone: [facility] I Got[place] Jorfvz63-77-4317 07:42-0400Heart rate 95 /Cristopher Krueger DRIER ATTENDANT-DIRECTOR OF PERSONNEL Work Phone: [facility]03-19-2024 07:42-0400 Respiratory rate18 /Cristopher Krueger DRIER ATTENDANT-DIRECTOR OF PERSONNEL Work Phone: [facility]03-19-2024 07:42-3232HwK7% (BldA) [Mass fraction]99 %Imani Krueger DRIER ATTENDANT-DIRECTOR OF PERSONNEL Work Phone: [facility] I [place] Dcebgh65-02-6377 07:42-0400Systolic blood mm[Hg]Imani Krueger DRIER ATTENDANT-DIRECTOR OF PERSONNEL Work Phone: [facility]02-26-2024 08:03-0500Body bokaul737.9 cmSwilliam Krueger DRIER ATTENDANT-DIRECTOR OF PERSONNEL Work Phone: [facility]02-26-2024 08:03-0500Body mass index (BMI) [Ratio]38.78 kg/z8Udjvxsndrukhsana Krueger DRIER ATTENDANT-DIRECTOR OF PERSONNEL Work Phone: [facility]02-26-2024 08:03-0500Body annhma18.09 kgSarukhsana Krueger DRIER ATTENDANT-DIRECTOR OF PERSONNEL Work Phone: [facility]02-26-2024 08:03-0500Diastolic blood gplcinbc826 mm[Hg]Imani Krueger DRIER ATTENDANT-DIRECTOR OF PERSONNEL Work Phone: [facility]02-26-2024 08:03-0500Heart rate 94 /Cristopher Krueger DRIER ATTENDANT-DIRECTOR OF PERSONNEL Work Phone: [facility]02-26-2024 08:03-8922SfD5% (BldA) [Mass fraction]100 %Imani Krueger DRIER ATTENDANT-DIRECTOR OF PERSONNEL Work Phone: [facility]02-26-2024 08:03-0500Systolic blood vykigtbi786 mm[Hg]Imani Krueger DRIER ATTENDANT-DIRECTOR OF PERSONNEL Work Phone: [facility] Bzubht99-60-0309 10:34-0500Body axouvy259.9 cmMegan Verhoff PA-C Work Phone: [facility] Lvncde02-14-7750 10:34-0500Body mass index (BMI) [Ratio]38.78 kg/b9Boufb Verhoff PA-C Work Phone: [facility] Qlvbgw49-99-6619 10:34-0500Body .09 kgMegan Verhoff PA-C Work Phone: [facility] Wstthx76-86-6351 10:34-0500Diastolic blood hszjsrof296 mm[Hg]Evans Verhoff PA-C Work Phone: [facility] Fagapu43-70-9764 10:34-0500Heart rate 93 /minMegan Verhoff PA-C Work Phone: [facility] Cpfdyo71-19-0465 10:34-0777EnA3% (BldA) [Mass fraction]97 %Evans Verhoff PA-C Work Phone: [facility] Omaksd36-04-3264 10:34-0500Systolic blood eouixcvs354 mm[Hg]Evans Verhoff PA-C Work Phone: [facility] I [place] Digmhc89-67-5727 14:39-0500Blood Pressure LocationPatrick GARCIA [facility]12-04-2023 14:39-0500Diastolic blood mm[Hg]Lynn GARCIA [facility]12-04-2023 14:39-0500Heart rate88 /minPatrick GARCIA [facility]12-04-2023 14:39-0500Respiratory rate16 /minPatrick GARCIA [facility]12-04-2023 14:39-0500Systolic blood suodjdbx814 mm[Hg]Lynnchamp GARCIA [facility]06-01-2023 13:48-0400Diastolic blood sbfrgmuy736 mm[Hg]Beth SALAM [phone]-BzdgpM[facility]letown [facility]06-01-2023 13:48-0400Mean blood ogmoteeg806 mm[Hg]Beth SALAM 981-7834Hgoucn-MgfpiMiddletown Hospital06-01-2023 13:48-0400Systolic blood duvwvmin228 mm[Hg]Beth SALAM 045-8686Roznoj-FmcaiMiddletown Hospital06-01-2023 13:46-0400Blood Pressure LocationMaher SALAM 891-7529Qvmgge-LmkvuMiddletown Hospital06-01-2023 13:46-0400Diastolic blood juqzmale368 mm[Hg]Beth SALAM 372-5270Bnuyqs-WwxbuMiddletown Hospital06-01-2023 13:46-0400Heart rate80 /minMaher SALAM 787-0016Eutvcz-QxffbMiddletown Hospital06-01-2023 13:46-0400Respiratory rate16 /minMaher SALAM 921-0542Vxqogy-AygqaMiddletown Hospital06-01-2023 13:46-0400Systolic blood nsxceozo656 mm[Hg]Beth SALAM 185-4563Jhuupg-UjvbyMiddletown Hospital11-01-2022 12:03-0400Blood Pressure LocationPatrick GARCIA [facility] [place] 911931-01-2022 12:03-0400Diastolic blood kupavaof68 mm[Hg]Lynn GARCIA [facility] [place] 911931-01-2022 12:03-0400Heart cpdw506 /minLynn GARCIA [facility] [place] 072371-01-2022 12:03-0400Systolic blood mm[Hg]Lynn GARCIA [facility]-29-2022 12:39-0400Body ivktdb85.81 kgPhitrupti Roy DO Work Phone: [facility]08-29-2022 12:39-0400Diastolic blood mm[Hg]Shiraz Roy DO Work Phone: [facility]08-29-2022 12:39-0400Heart rate76 /min Shiraz Roy DO Work Phone: [facility]08-29-2022 12:39-0400Systolic blood rctnzyis452 mm[Hg]Shiraz Roy DO Work Phone: [facility]06-16-2022 09:00-0400Body pdguhm936.02 cmRobert Granville II Other [employer] Other 06-16-2022 09:00-0400Body mass index (BMI) [Ratio] 34.47 kg/a2Hkagio Granville II Other [employer] Other 06-16-2022 09:00-0400Body .27 kgRobert Dany II Other [employer] Other 05-25-2022 15:30-0400Body zyiprl380.02 cmRobert Dany II Other [employer] Other 05-25-2022 15:30-0400Body mass index (BMI) [Ratio] 32.41 kg/v7Llozsk [employer] Other nort [employer] Other 05-25-2022 15:30-0400Body .01 kgRobert Tryouts II Other [facility] [employer] Other Encounters Encounter DateEncounter TypeCare ProviderFacilityStart: 69-57-5663tujtatdfoc Alecia X OrzechFacility:EU BellevueStart: 03-31-2025 End: 48-35-0558urdnurfsgqSMZIWUSelect [facility] Start: 03-26-2025 End: 93-89-5644Rupaxb Jv Dudley LOG CHAIN FEEDER Work Phone: [facility] MedicineStart: 03-26-2025 End: 44-62-2265Kxkeqgray Dudley LOG CHAIN FEEDER Work Phone: [facility] MedicineStart: 03-26-2025 End: 15-26-2638Bnnhms outpatient visit 15 minutesBremichael Dudley LOG CHAIN FEEDER Work Phone: [facility] MedicineComment on above:Left arm numbness (Primary Dx); Chest pressureStart: 03-26-2025 End: 18-00-2004utzjvfzocbGHWEZF MAJORSNot AvailableStart: 03-20-2025 End: 55-02-9171hnkundvoleDCUADSelect [facility] Northtart: 03-19-2025 End: 34-66-7443Frvkdw Case Bishop MD Work Phone: [facility] MedicineStart: 03-19-2025 End: 08-52-9641Upfyysray Bishop MD Work Phone: [facility] MedicineStart: 03-19-2025 End: 17-92-4769idzwbzzvuePOKPKR [facility] HOSPITALSProMedRonald Reagan UCLA Medical Centertart: 03-19-2025 End: 26-51-3158Uwcvpr outpatient visit [address] [facility] LOG CHAIN FEEDER Work Phone: NOValleyCare Medical CenterComment on above:Chest pressure (Primary Dx); Left arm numbness; Acute pain of left shoulderStart: 03-19-2025 End: 52-43-9200fjhcjkguswLSNFDM MAJORSNot AvailableStart: 03-10-2025 End: 49-52-8779Qkyski [facility] LOG CHAIN FEEDER Work Phone: [facility] MedicineStart: 03-10-2025 End: 63-87-9704FooixtSt. [facility] Medical [facility] LOG CHAIN FEEDER Work Phone: NO[facility] MedicineStart: 03-10-2025 End: 65-84-2492Lolqwt outpatient new [address] [facility] LOG CHAIN FEEDER Work Phone: [facility] ChildrenComment on above:Encounter to establish care with new provider (Primary Dx); Bipolar 1 disorder (HCC); Anxiety; NIRMALA (obstructive sleep apnea); Mixed hyperlipidemia ; Gastroesophageal reflux disease, unspecified whether esophagitis present; Chronic right hip pain; Rash and nonspecific skin eruption; Pulmonary hypertension, unspecified ([facility]); Primary hypertension ; Morbid (severe) obesity due to excess calories ([facility])Start: 03-10-2025 End: 95-27-9616lefibfjstiWDDFMJ MAJORSNot AvailableStart: 03-06-2025 End: 87-41-0173rnwutdfpsxGmzrio X OrzechFacility:EU BellevueStart: 03-06-2025 End: 84-38-3728Qarsssc encounter procedureAurora X Orzech [facility] start: 02-13-2025 End: 50-08-3646Qigzohdxg Result EncounterGeneric External Data ProviderNOMS External Department UnsolicitedStart: 02-13-2025 End: 44-23-3270Djfaufsoc Result EncounterGeneric External Data ProviderNOMS External Department UnsolicitedStart: 02-11-2025 End: 69-92-6527Nifumnvkf Result EncounterGeneric External Data ProviderNOMS External Department UnsolicitedStart: 02-11-2025 End: 19-95-8398Rvhrzovez Result EncounterGeneric External Data ProviderNOMS External Department UnsolicitedStart: 01-15-2025 End: 13-62-4196xolbmvsvbsYbbc J Aichholz Work Phone: [facility] Work Phone: Comment on above:S/P total right hip arthroplasty (Primary Dx); Chronic right hip painStart: 01-15-2025 End: 47-32-9076Oxtrltu encounter procedureDaphilip Warren MD-[facility] Work Phone: Start: 01-09-2025 End: 57-07-8293Wvryot OnlyPauline Ryan [employer] Work Phone: [facility] FMComment on above:Chronic right hip pain (Primary Dx)Start: 01-01-2025 End: 64-10-9776Hnaitd flowsheetPauline Augustinhaishwarya [employer] Work Phone: [facility] FMStart: 01-01-2025 End: 98-20-4435Wbjuwf flowsheetLisa Ryan [employer] Work Phone: [facility] FMStart: 01-01-2025 End: 91-66-3764Fxqjan outpatient visit 25 minutesLisa Ryan [employer] Work Phone: noMS CWM FMComment on above:Chronic right hip pain (Primary Dx); NIRMALA (obstructive sleep apnea); Dizziness and giddiness; Primary hypertension ; Morbid (severe) obesity due to excess calories ([facility] [address]); Bipolar 1 disorder ([facility]); Anxiety; Elevated glucose level; PAH (pulmonary artery hypertension) ([facility]); Bipolar disorder, unspecified ([facility]); Mixed hyperlipidemia ; Gastroesophageal reflux disease, unspecified whether esophagitis presentStart: 01-01-2025 End: 33-40-0538qmrnjihanaCSSI AICHHOLZNot AvailableStart: 98-27-7292jkrytpdzbfnam JUNGFacility:FLORENTIN FlowersevueStart: 11-28-2024 End: 05-53-4898Kpkboeuwx Result EncounterGeneric External Data ProviderNOMS External Department UnsolicitedStart: 11-28-2024 End: 38-55-5609Nrcxuxtok Result EncounterGeneric External Data ProviderNOMS External Department UnsolicitedStart: 11-28-2024 End: 30-57-3922rkzhdjvcntFfhycby R WATERSFacility:CD:[id number]: 11-25-2024 End: 72-39-6430Rkpvsphco Result EncounterGeneric External Data ProviderNOMS External Department UnsolicitedStart: 11-25-2024 End: 42-93-3193Cklmdrswa Result EncounterGeneric External Data ProviderNOMS External Department UnsolicitedStart: 11-11-2024 End: 70-70-0680frciphcphjBFKSXSDayton Children's Hospital Start: 11-11-2024 End: 50-71-7856Kumbmcjpu for preprocedural cardiovascular examinationGEMadison Healthtart: 11-01-2024 End: 22-08-3545Bfimfxfsr Result EncounterGeneric External Data ProviderNOMS External Department UnsolicitedStart: 11-01-2024 End: 69-34-2354Uymmgsehu Result EncounterGeneric External Data ProviderNOMS External Department UnsolicitedStart: 10-31-2024 End: 62-88-8937Sssaufxlo encounterTrinh Eduardo MD Work Phone: [facility] Comment on above:Sleep Lab (PAP)Start: 10-30-2024 End: 34-64-4867ynmvxfxmdiQXIW J AICOhio State East Hospitaltart: 10-30-2024 End: 20-74-9807wjwcvfmhbiPMIO SHEIKaltonSalem City Hospitaltart: 70-34-7349zavqvxmjilKnowzbk R WATERSFacility:CD:[id number]: 10-09-2024 End: 78-37-4027Vyoymuzwr Result EncounterGeneric External Data ProviderNOMS External Department UnsolicitedStart: 10-09-2024 End: 11-89-1652Cdwxeyewg Result EncounterGeneric External Data ProviderNOMS External Department UnsolicitedStart: 10-07-2024 End: 43-85-1584owuoenyhmuRtxyxtg R WATERSFacility:FLORENTIN BellevueStart: 10-04-2024 End: 35-66-6362Dlzuoxtgw Result EncounterLisa Aichholz LOG CHAIN FEEDER Work Phone: noms External Department UnsolicitedStart: 10-04-2024 End: 05-90-7788Txsyvwulg Result EncounterLisa Aichholz LOG CHAIN FEEDER Work Phone: noms External Department UnsolicitedStart: 10-03-2024 End: 80-87-2289oxzimdjnlqYGYYCEPMercy Healthtart: 09-30-2024 End: 11-14-1762Ukpfor flowsheetLisa Aichholz LOG CHAIN FEEDER Work Phone: noms CWM FMStart: 09-30-2024 End: 55-19-4200Taidfz flowsheetLisa Aichholz LOG CHAIN FEEDER Work Phone: noms CWM FMStart: 09-30-2024 End: 16-49-8213Ikqxne outpatient visit 25 minutesLisa Aichholz LOG CHAIN FEEDER Work Phone: noms CWM FMComment on above:Dizziness and giddiness (Primary Dx); NIRMALA (obstructive sleep apnea); Morbid (severe) obesity due to excess calories (CMS/HCC); Bipolar disorder, unspecified (CMS/HCC); Mixed hyperlipidemia (CMS/HCC); Anxiety; Chronic right hip pain; Gastroesophageal reflux disease, unspecified whether esophagitis present; Left hip painStart: 09-30-2024 End: 28-93-2267qpsytdxhvoDTRC AICHHOLZNot AvailableStart: 09-27-2024 End: 39-46-7422pehwezofqfEOKZKettering Health Prebletart: 09-09-2024 End: 52-69-8645Pixxhsvbe Result EncounterGeneric External Data ProviderNOMS External Department UnsolicitedStart: 09-09-2024 End: 92-15-1890Zjbamdywg Result EncounterGeneric External Data ProviderNOMS External Department UnsolicitedStart: 09-06-2024 End: 93-25-5634Wgwfaa follow up visit related to original Mesfin Rossi MD Work Phone: [facility] Physicians Ear, Nose and ThroatComment on above:Obstructive sleep apnea (Primary Dx)Start: 09-06-2024 End: 42-13-4864xnxwardnyxKVCA W WERNINGSelect Medical [facility] Ambulatory PPGStart: 08-29-2024 End: 03-28-2748Qhbtrwxte Result EncounterLisa Aichholz LOG CHAIN FEEDER Work Phone: noms External Department UnsolicitedStart: 08-29-2024 End: 01-28-7251Hduyzkpup Result EncounterLisa Aichholz LOG CHAIN FEEDER Work Phone: noms External Department UnsolicitedStart: 08-28-2024 End: 63-20-7629Gqhnpa flowsheetLisa Aichholz LOG CHAIN FEEDER Work Phone: noms CWM FMStart: 08-28-2024 End: 79-01-6926Gedrnk flowsheetLisa Aichholz LOG CHAIN FEEDER Work Phone: noms CWM FMStart: 08-28-2024 End: 57-97-4313Ssoyft outpatient visit 25 minutesLisa Aichholz LOG CHAIN FEEDER Work Phone: noms CWM FMComment on above:Anxiety (Primary Dx); Morbid (severe) obesity due to [...] disease, unspecified whether esophagitis present; Dizziness and giddinessStart: 08-28-2024 End: 47-08-3379ijcgasfmmiZCJI Se AvailableStart: 08-22-2024 End: 37-49-3007Qyltviqdqo and management of inpatientJODIONE Chavez [facility] PHOENIXVINICIUSSelect Medical [facility] HospitalStart: 07-30-2024 End: 89-90-6110Xjkgbej encounter procedureLois Mckeon MD Work Phone: orthopaedicsComment on above:Pain of right hip (Primary Dx)Start: 07-30-2024 End: 82-55-8296Prjutkylx Result EncounterGeneric External Data ProviderNOMS External Department UnsolicitedStart: 07-30-2024 End: 28-19-8753Yvkbhypjs Result EncounterGeneric External Data ProviderNOMS External Department UnsolicitedStart: 07-30-2024 End: 43-41-2406fwxjkizqahMHH STEARNSFacility:[facility] HospitalStart: 07-30-2024 End: 09-91-5879Dqbsmtadrn hospital visit by physicianXr [facility] Work Phone: RadiologyComment on above:oaStart: 07-29-2024 End: 32-10-1042Qfzuereag encounterTevin Rossi MD Work Phone: [facility] - ENTStart: 07-26-2024 End: 67-67-3822Ajpncdyie encounterTevin Rossi MD Work Phone: [facility] - ENTStart: 07-23-2024 End: 93-67-2740hlvxcxjyviPSQH W WERNINGSelect [facility] HospitalStart: 07-23-2024 End: 46-66-2138Clsqbgn encounter procedureMetro Pat Provider 4[facility] CenterwayStart: 07-01-2024 End: 62-97-7232otpgeuptppKWF L STEARNSFacility:[facility] HospitalStart: 06-08-2024 End: 06-74-7892Ifkwcizcw Result EncounterGeneric External Data ProviderNOMS External Department UnsolicitedStart: 06-08-2024 End: 75-48-6958Xshzvhltx Result EncounterGeneric External Data ProviderNOMS External Department UnsolicitedStart: 06-05-2024 End: 94-80-1187Hujbsxjrk Result EncounterGeneric External Data ProviderNOMS External Department UnsolicitedStart: 06-05-2024 End: 58-18-5560Sanubbkej Result EncounterGeneric External Data ProviderNOMS External Department UnsolicitedStart: 06-05-2024 End: 43-81-3162Fmdrmatwg to [facility] 3 Work Phone: pre AnesthesiaStart: 06-05-2024 End: 70-39-1318docorabdezGZJFVWVUU SHMELTERFacility:[facility] Start: 06-05-2024 End: 79-80-1605Wwikrfjrru consultationMulticare [facility] 3 Work Phone: pre AnesthesiaComment on above:Pre-op evaluation (Primary Dx); NIRMALA (obstructive sleep apnea); Gastroesophageal reflux disease, unspecified whether esophagitis present; Pulmonary HTN (HCC); Other hyperlipidemia; BMI 37.0-37.9, adultStart: 38-76-4293Vzzybhenm for other preprocedural examinationKIM [facility] HospitalStart: 06-05-2024 End: 95-13-5819Tkwpidtswurwy examination [facility] 3 Work Phone: [facility] Work Phone: Start: 05-29-2024 End: 72-27-8859Lgkzbz outpatient visit 25 minutesPauline Ryan NP Work Phone: noms CWM FMComment on above:Bipolar 1 disorder (CMS/HCC) (Primary Dx); NIRMALA (obstructive sleep apnea); PAH (pulmonary artery hypertension) (CMS/HCC); Chronic right hip pain; Morbid (severe) obesity due to excess calories (CMS/HCC); Anxiety; Chronic rhinitis; Body mass index (BMI) 38.0-38.9, adultStart: 05-29-2024 End: 53-57-1019gwfsphiqjfGGUB MATTHIEUot AvailableStart: 05-29-2024 End: 02-95-7904Xrsicq flowsheetLisa Ryan LOG CHAIN FEEDER Work Phone: [facility] CWM FMStart: 05-29-2024 End: 56-57-9740Qodkgj flowsheetLisa Ryan LOG CHAIN FEEDER Work Phone: NOPB CWM FMStart: 05-24-2024 End: 85-96-2084Cuhkqutyh to same day surgery Guero Mckeon MD Work Phone: orthopaedicsComment on above:Schedule SurgeryStart: 05-24-2024 End: 77-72-1133wypxymyedpWcr L Stearns MD Work Phone: orthopaedicsStart: 05-17-2024 End: 63-95-8116Eixajr outpatient visit 15 minutesTevin Rossi MD Work Phone: ProAs[facility] Hospitalca Physicians Ear, Nose and ThroatComment on above:Obstructive sleep apnea (Primary Dx)Start: 05-17-2024 End: 48-93-4568uvtetujgbpMLXC W WERNINGAtrium Health Navicent Peach PPGStart: 05-09-2024 End: 79-40-9081Xpsbmidii encounterLois Mckeon MD Work Phone: orthopaedicsComment on above:Question (See note)Start: 05-09-2024 End: 42-33-6850Rfvwzcrnui and management of inpatientGRETTEL HILARY HOGUEProMedica Parma HospitalStart: 05-09-2024 End: 49-71-6044Chpuneskpz and management of inpatientTEVIN ROSSIPremier Health Atrium Medical Centerca [facility]ma HospitalStart: 05-06-2024 End: 88-06-1533Tnmazifpiq and management of inpatientLISA Magdaleno RYANProMedica Parma HospitalStart: 05-02-2024 End: 76-95-6612Isdzvrkyv to [facility] Phone Call Provider 2 ProM[facility] Hospitaltart: 04-19-2024 End: 32-50-4087Lusimbtrz encounterTevin Rossi MD Work Phone: [facility] - ENTStart: 04-19-2024 End: 84-04-2611Gyuqvg outpatient new 30 minutesTevin Rossi MD Work Phone: [facility] Physicians Ear, Nose and ThroatComment on above:NIRMALA (obstructive sleep apnea) (Primary Dx)Start: 04-19-2024 End: 58-19-6913cggknqjpwhLWKM W WERNINGSelect Medical [facility] Ambulatory PPGStart: 04-16-2024 End: 86-38-7944rkhzfswhieQDT STEARNSFacility:[facility] Hospitaltart: 04-16-2024 End: 57-49-3987Vrgveal encounter Delano Mckeon MD Work Phone: orthopaedicsComment on above:Primary osteoarthritis of right hip (Primary Dx); Status post right hip replacementStart: 04-10-2024 End: 99-13-9421Maflek flowsheetPauline Ryan LOG CHAIN FEEDER Work Phone: noms CWM FMStart: 04-10-2024 End: 32-10-9435Fmbumh flowsheetLisa Aichholkamila LOG CHAIN FEEDER Work Phone: noMS CWM FMStart: 04-10-2024 End: 00-58-0127Rcoobe outpatient visit 25 minutesLisa Shelby LOG CHAIN FEEDER Work Phone: noMS CWM FMComment on above:Bipolar disorder, unspecified (CMS/HCC) (Primary Dx); Neuritis of right median nerve; Neuritis of left median nerve; Morbid (severe) obesity due to excess calories (CMS/HCC); Body mass index (BMI) 38.0-38.9, adult; Anxiety; PAH (pulmonary artery hypertension) (CMS/HCC); Chronic rhinitis; Gastroesophageal reflux disease, unspecified whether esophagitis present; Needs flu shotStart: 04-10-2024 End: 24-93-2640ewdeeydlitCJOZ AICHHOLZNot AvailableStart: 03-19-2024 End: 59-34-3287Pbcyqim encounter procedureLois Mckeon MD Work Phone: ortMethodist Charlton Medical CenterCComment on above:Pain of right hip (Primary Dx); Primary osteoarthritis of right hipStart: 03-19-2024 End: 45-33-8959pvrkmcwvcrMFJB JO AICHHOLZFacility:[facility] Start: 03-19-2024 End: 57-50-3624Msmhnxchfs hospital [facility] by [facility]Trace [facility] 1Xray [employer] FHCComment on above:Pain in right hip [M25.551]Start: 03-18-2024 End: 42-13-2113Mzydbawla encounterLois Mckeon MD Work Phone: ortThe Hospitals of Providence Memorial Campustart: 03-06-2024 End: 77-57-6468Mctyfkbso Result EncounterGeneric External Data ProviderNOMS External Department UnsolicitedStart: 03-06-2024 End: 33-45-8901Ncmnjwrdw Result EncounterGeneric External Data ProviderNOMS External Department UnsolicitedStart: 02-29-2024 End: 20-79-2507Hwaytx Constanza Ryan LOG CHAIN FEEDER Work Phone: noms CW FMStart: 02-29-2024 End: 34-62-5037Wsjvsa flowsheetPauline Ryan LOG CHAIN FEEDER Work Phone: noms CWM FMStart: 02-29-2024 End: 61-96-5570Qqmrdn outpatient visit 25 minutesLisa Ryan LOG CHAIN FEEDER Work Phone: noms CWM FMComment on above:Bipolar disorder, current episode mixed, moderate (CMS/HCC) (Primary Dx); Chronic rhinitis; Gastroesophageal reflux disease, unspecified whether esophagitis present; BMI 38.0-38.9,adult; Neuritis of left median nerve; Neuritis of right median nerve; Bipolar disorder, unspecified (CMS/HCC)Start: 11-28-2023 End: 42-01-5918Arzjogv encounter procedureJESAULO Adam JUNG [facility] start: 11-12-2023 End: 19-36-2713LyanixCsfptgxg M Pati DRIER ATTENDANT-DIRECTOR OF PERSONNEL Work Phone: [facility] ClinicComment on above:Chronic right hip painStart: 83-11-8532Hhxzvtkmx encounterDeyviaman Garza [facility] Pain Management ClinicStart: 09-12-2023 End: 45-01-2689Bplqpw outpatient visit 15 minutesSarukhsana Marita Pati DRIER ATTENDANT-DIRECTOR OF PERSONNEL Work Phone: [facility] ClinicComment on above:Chronic right hip pain (Primary Dx)Start: 08-21-2023 End: 99-79-6413Iefwxm outpatient visit 25 minutesEvans Freeman Remediation of Nevadasondra PA-C Work Phone: [facility] ClinicComment on above:Chronic right hip pain (Primary Dx); Lumbar neuritisStart: 07-11-2023 End: 05-74-0063trbpokdojqOdhdp Keller Other [facility] [employer] Other Start: 76-87-1940Yezrxs outpatient visit 25 minutes Juliana [facility] ClydeStart: 06-28-2023 End: 98-36-6382Sigext outpatient visit 15 minutesEvans Freeman M.Setekmustapha PA-C Work Phone: [facility] ClinicComment on above:Lumbar radiculopathy (Primary Dx)Start: 05-29-2023 End: 57-75-1902Uwlrfih encounter procedureLynn GARCIA [facility] start: 02-02-2023 End: 88-59-2447Xst Drop offMaher SALAM [facility] Start: 02-01-2023 End: 34-10-8711Asmmuds encounter procedureMaher SALAM [facility] Start: 12-06-2022 End: 57-61-8729Hglqdsz encounter procedureMaher SALAM [facility] Start: 11-24-2022 End: 09-38-0206Udwrhsi encounter procedureMaher SALAM 535-0482Vugivv-ZfzcdOhio[facility] Start: 11-22-2022 End: 53-29-7244ubojsyveczLQLDMYR TUCKERFacility:R5Qapgp: 21-75-4468jbhnowiuqj NARENDRANATH LAKSHMIPATHY .Facility:M1Svkeu: 10-26-2022 End: 04-95-7270urookvhdpcKXI PAULINE AICHHOLZFacility:D4Ednij: 10-18-2022 End: 99-79-1684vuuxtjxuujDT NEDA TIMMISFacility:H1Bnvhm: 10-04-2022 End: 81-39-8161dkoqrrgvocZV NEDA TIMMISFacility:P3Lfakz: 09-21-2022 End: 72-63-7302rzwzenbcsiEAVMMQ DIAB .Facility:O6Clvxj: 09-06-2022 End: 33-19-1743kdbswpznwsFS NEDA TIMMISFacility:G8Adxar: 08-18-2022 End: 01-20-0546vumvmrfphxPFTQY B APLINGFacility:P5Bqcxt: 08-04-2022 End: 96-37-4114oufciyiralUX MARKO S MORALES .Facility:M5Xunpu: 08-04-2022 End: 15-84-4436dgzozkalrxQW ADÁN TORRES .Facility:U9Odddu: 07-19-2022 End: 71-47-9413ylezgusjuoRF MARKO S MORALES .Facility:Z4Igxzh: 07-07-2022 End: 09-62-1876stdrnuomamTRPY SOLIS .Facility:J4Fcwpx: 06-09-2022 End: 05-43-9955hweqevxvffOC MARKO S MORALES .Facility:Y1Ectsm: 06-06-2022 End: 74-75-1701xdjdyumukjKP ADÁNJose TORRES .Facility:O5Hmeat: 04-26-2022 End: 40-57-2072Umudfyr encounter procedurePanader Palafox GARCIA [facility] Cyrus Start: 04-22-2022 End: 78-74-5129zrcwiqcfbhFZF PAULINE SHELBYFacility:G3Ptsry: 03-29-2022 End: 02-58-9422edtvqwkishRC MARKO S MORALES .Facility:R3Farhh: 03-22-2022 End: 58-47-7647kewtzaupdsQCK PAULINE SHELBYFacility:C8Rgmbs: 03-22-2022 End: 63-55-0918ezqxtekarrBJ MARKO S MORALES .Facility:M6Ojvmm: 03-08-2022 End: 72-74-5368tkcdbpeutvEB NEDA MORRISFacility:I7Drkkd: 03-08-2022 End: 32-67-5091Xqxfonc encounter procedureLynn Palafox GARCIA [facility] Start: 03-07-2022 End: 39-26-1452iovgqczafyQLJ PAULINE AICSAGEFacility:A1Xdrob: 02-21-2022 End: 10-25-2328Cprivsf encounter procedurePhitrupti Roy DO Work Phone: Spine MedicineComment on above:Tendinopathy of right gluteal region (Primary Dx); Trochanteric bursitis of right hip; Chronic bilateral low back pain without sciatica; Lumbar spondylosisStart: 02-09-2022 End: 76-39-1683thfrsvosfnWXH PAULINE AICHHOLZFacility:I4Kaitj: 01-24-2022 End: 96-66-9707parmtegaqnMZZ PAULINE RENNYHHOLZFacility:S3Npzuv: 01-17-2022 End: 60-64-6882Aribcgs encounter procedureJorge Luis Page DO Work Phone: OrthopaedicsComment on above:Trochanteric bursitis of right hip (Primary Dx); Lumbago-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Start: 01-05-2022 End: 33-16-2589igsiqimklhYnclrw [place] Other [employer] Other Start: 20-04-8278Lvrkaieem encounterRobert [place] II JAKE [facility] OrthopedicsStart: 12-31-2021 End: 23-13-7754Ykjenrg encounter procedureTerencejohn Page DO Work Phone: OrthopaedicsComment on above:Trochanteric bursitis of right hip (Primary Dx)Start: 12-09-2021 End: 06-58-1165fgtetsxjdwArtgpv [place] Other [employer] Other Start: 46-35-3853Exudsm outpatient visit 25 minutes Alexis PHAM [facility] OrthopedicsStart: 11-17-2021 End: 63-84-4678wgjslocrpiWpikzh Dany II Other [employer] Other Start: 64-70-2330Rqdnme outpatient new 45 minutes Alexis HERNANDEZG [facility] OrthopedicsStart: 06-02-2017 End: 62-96-3677KykzoqizduFGCYUTX PHYSICIANFacility:[facility]OSPITALtart: 05-15-2017 End: 56-82-5442VcpzxqqdnuPDRTKZF PHYSICIANFacility:AKMCStart: 05-01-2017 End: 07-07-7519VxyqfosssmPGRDWAX PHYSICIANFacility:[facility] Procedures DateProcedureProcedure DetailPerforming ClinicianStart: 60-78-2615BJE BUNGeneric External Data ProviderStart: 54-51-7656LUH CARBON DIOXIDEGeneric External Data ProviderStart: 92-39-0025TXZ CHLORIDEGeneric External Data ProviderStart: 88-71-3991HIZ PHOSPHOROUSGeneric External Data ProviderStart: 80-95-4942WPI SODIUMGeneric External Data ProviderStart: 53-45-3181AOV URIC ACIDGeneric External Data ProviderStart: 28-34-4072GCX CALCIUMGeneric External Data Provider Start: 90-21-0942GAH CREATININEGeneric External Data ProviderStart: 55-97-9127SE ABDOMEN 1VGeneric External Data ProviderStart: 40-06-8546Hoqonodprp glycosylated m0hHisgsa Ryan LOG CHAIN FEEDER Work Phone: Start: 75-38-2181XY ABDOMEN 1VGeneric External Data ProviderStart: 34-72-9919Gbbjzxogkvfyzp shockwave lithotripsy of calculus of kidneyAurora Orchaitanya Start: 54-42-4435UMG CBC WITH AUTO DIFFGeneric External Data ProviderStart: 80-01-7554CB ECHO DOPPLER COMPLETEGeneric External Data ProviderStart: 19-12-9684UC HIP LT MIN 2VLisa Shelby LOG CHAIN FEEDER Work Phone: Start: 66-13-8080CZJ CBC WITH AUTO DIFFGeneric External Data ProviderStart: 54-30-2636LC TOMOSYNTHESIS SCREENING BILisa Shelby LOG CHAIN FEEDER Work Phone: Start: 64-10-9835ZzdjyfugdcfQqzb Shelby LOG CHAIN FEEDER Work Phone: Start: 27-25-7048GN ABDOMEN 1VGeneric External Data ProviderStart: 61-39-1455QQ RENAL BIGeneric External Data ProviderStart: 82-82-4841DUV CBC WITH AUTO DIFFLisa Shelby LOG CHAIN FEEDER Work Phone: Start: 99-81-5953Rqzsu hip unilateral with pelvis 2-3 viewsRoss Az SHAIKH Work Phone: Start: 31-05-7239WE HIP 3V PELV+ AP/LAT RTGeneric External Data ProviderStart: 87-70-9126Kzqclrmv identified in Urine by Culture Generic External Data ProviderStart: 46-11-4287JXH CBC W AUTO DIFF BLDGeneric External Data ProviderStart: 74-09-1080Tqe routine ecg w/least 12 lds i&r only Jose Tejeda DRIER ATTENDANT.DIRECTOR OF PERSONNEL Work Phone: Start: 36-02-4745Bcicf hip unilateral with pelvis 2-3 viewsRoss zA SHAIKH Work Phone: Start: 04-43-9738DYT LIPID PROFILE (FASTING)Generic External Data ProviderStart: 45-96-8019WMRS LIVER PANELGeneric External Data ProviderStart: 67-75-9354ZfnqezkexitWduf Shelby LOG CHAIN FEEDER Work Phone: Start: 18-50-7011Atvvanbfj of thyroid glandPatrick [employer] Systems Start: 44-73-8366Eqstw depression screening assessment Shiraz Roy DO Work Phone: Start: 35-71-6212Bzdxvxqmzwvxdm aspir&/inj major jt/bursa w/o usJorge Luis Page DO Work Phone: Start: 28-64-7447HzydwsvxpchGrxlqdj Masin DO Work Phone: HysterectomyParobley rex va medical centerk GARCIA LaparoscopyPatrick [employer] Other bilateral ligation and division of fallopian tubesPatrick GARCIA partial colectomyParobley rex va medical centerk VI Systems Repair of joint of right hipAurora Orzech TonsillectomyParobley rex va medical centerk VI Systems Plan of Treatment DateCare ActivityDetailAuthorStart: 52-14-3674FWMGDLUEG B (1 of 3 - Risk 3-dose series)HEPATITIS B (1 of 3 - Risk 3-dose series)[facility]otart: 57-72-2097Cgrkterx ScreeningDiabetes ScreeningRegency Hospital Toledotart: 10-04-2025 Screening for malignant neoplasm of breastStraith Hospital for Special SurgeryStart: 01-42-7317Enjfy BMI ScreeningAdult BMI ScreeningProAshtabula General Hospitalca Health SystemStart: 77-85-9881Eizkmmf ScreeningTobacco ScreeningProAshtabula General Hospitalca Health SystemStart: 23-22-3009Knorz BMI ScreeningAdult BMI ScreeningProAshtabula General Hospitalca Health SystemStart: 85-38-1986Soxfqzu ScreeningTobacco ScreeningPremier Health Atrium Medical Centerca Health SystemStart: 06-11-2025 End: 15-97-4041Zlozema encounter /17/2025 1:00 PM EST Office Visit MIS[facility] [address] [place] [id number] Laxmi Dudley NP [address] [place] [address] [facility]OMRivera [facility] Hospitaltart: 64-16-6327Zvpru BMI ScreeningAdult BMI ScreeningProAshtabula General Hospitalca Health SystemStart: 47-61-2621Efzpcza ScreeningTobacco ScreeningProAshtabula General Hospitalca Health SystemStart: 87-83-7186Gqixu BMI ScreeningAdult BMI ScreeningProAshtabula General Hospitalca Health SystemStart: 89-05-5465Apfqlqd ScreeningTobacco ScreeningProMedica Health SystemStart: 61-25-2177Bgqzs BMI ScreeningAdult BMI ScreeningProMedica Health SystemStart: 16-23-5309Xxskqrv ScreeningTobacco ScreeningProAshtabula General Hospitalca Health SystemStart: 04-03-2025 End: 84-16-1037Gcpcccj encounter dlytyboul67/09/2025 1:20 PM EDT Office Visit [facility] LUCIO [address] [place] [address] Pauline Ryan NP [address] [place] [address] [facility] FMStart: 03-26-2025 End: 55-96-9860Trjelmw encounter procedureOrlando Health Arnold Palmer Hospital for ChildrenComment on above:ArrivedStart: 03-19-2025 End: 68-53-3085GUD W Auto Differential panel - BloodCBC and differential Lab Routine Chest pressure Expected: 03/19/2025 (Approximate), Expires: 03/19/2026 [facility] Work Phone: Comment on above:Expected: 03/19/2025 (Approximate), Expires: 03/19/2026Start: 03-19-2025 End: 18-47-6901Cnsdcgfjb (Vitamin B12) [Mass/volume] in Serum or PlasmaVitamin B12 Lab Routine Chest pressure Left arm numbness Expected: 03/19/2025 (Approximate), Expires: 03/19/2026[facility] HealthcareComment on above:Expected: 03/19/2025 (Approximate), Expires: 03/19/2026Start: 03-19-2025 End: 18-70-7682Qlisdfnbnfsek metabolic 2000 panel - Serum or PlasmaComprehensive metabolic panel Lab Routine Chest pressure Expected: 03/19/2025 (Approximate), Expires: 03/19/2026[facility] HealthcareComment on above:Expected: 03/19/2025 (Approximate), Expires: 03/19/2026Start: 03-19-2025 End: 74-55-9817BQM 12 leadECG 12 lead ECG Routine Chest pressure Left arm numbness Expected: 03/19/2025 (Approximate), Expires: 03/19/2026[facility] Comment on above:Expected: 03/19/2025 (Approximate), Expires: 03/19/2026Start: 03-19-2025 End: 01-09-3906Zjqoaxov [Mass/volume] in Serum or PlasmaFerritin Lab Routine Left arm numbness Expected: 03/19/2025 (Approximate), Expires: 03/19/2026[facility] HealthcareComment on above:Expected: 03/19/2025 (Approximate), Expires: 03/19/2026Start: 03-19-2025 End: 11-89-7402VCV W/REFLEX TO FT4TSH W/REFLEX TO FT4 Lab Routine Chest pressure Left arm numbness Expected: 03/19/2025 (Approximate), Expires: 03/19/2026NOKY HealthcareComment on above:Expected: 03/19/2025 (Approximate), Expires: 03/19/2026Start: 03-19-2025 End: 80-15-4769PD Cervical spine 2 or 3 ViewsXR cervical spine 2 or 3 views Imaging Routine Left arm numbness Expected: 03/19/2025, Expires: 03/19/2026NOKY HealthcareComment on above:Expected: 03/19/2025, Expires: 03/19/2026Start: 03-19-2025 End: 29-33-4340LN Chest 2 ViewsXR chest 2 views Imaging Routine Chest pressure Left arm numbness Expected: 03/19/2025, Expires: 03/19/2026[facility] Comment on above:Expected: 03/19/2025, Expires: 03/19/2026Start: 03-19-2025 End: 04-58-3521FE Shoulder - left 2 ViewsXR shoulder 2+ views left Imaging Routine Acute pain of left shoulder Expected: 03/19/2025, Expires: 03/19/2026 [facility] HealthcareComment on above:Expected: 03/19/2025, Expires: 03/19/2026Start: 03-19-2025 End: 29-31-1302Naypcis encounter xohzobbyw07/24/2025 9:40 AM EDT Office Visit [facility] [address] [place] [address] Mckenna Bishop MD [address] [facility] [place] [address] [facility] AreaComment on above:Arrived Start: 03-10-2025 End: 35-68-8853Jggssca encounter /15/2025 11:00 AM EDT Office Visit [facility] [address] [place] [address] Laxmi Dudley NP [address] [place] [address] [facility] MedicineComment on above:Arrived Start: 23-96-4988Wrjfrraiv vaccinationInfluenza VaccineOhioHealth [facility] Start: 01-29-2025 End: 13-66-2559Qwijvtxn Cwrxlaj7701/29/2025 8:00 PM EDT Clinical Support [facility] [address] [place] [address] Trinh Eduardo MD [address] [facility] [address] [place] [address] [facility] DisordersStart: 01-01-2025 End: 68-05-0979Yhodyqn encounter procedureENCINO [facility] FMComment on above:NIRMALA (obstructive sleep apnea) (Primary Dx); Dizziness and giddiness; Primary hypertension ; Morbid (severe) obesity due to excess calories ([facility]CC); Bipolar 1 disorder ([facility]); Anxiety; Elevated glucose level; PAH (pulmonary artery hypertension) ([facility])Start: 10-01-2024 End: 95-25-5915Gssmiyy encounter /08/2025 1:20 PM EDT Office Visit Orthopaedics [address] [place] [address] Lois Mckeon MD [address] [place] [address] [phone] 2mo follow up - DOS 07/01/24OrthopaedicsComment on above:2mo follow up - DOS 07/01/24Start: 09-30-2024 End: 57-43-5503XB Hip - left 3 ViewsXR hip left 2 or 3 views Imaging Routine Left hip pain Expected: 09/30/2024, Expires: 09/30/2025[facility] Work Phone: Comment on above:Expected: 09/30/2024, Expires: 09/30/2025Start: 09-30-2024 End: 00-94-0057Xgcfhfh encounter procedureNOMS CWM FMComment on above:Dizziness and giddiness (Primary Dx); NIRMALA (obstructive sleep apnea); Morbid (severe) obesity due to excess calories (CMS/HCC)Start: 42-82-9180Uyhpktn ScreeningTobacco ScreeningWayne Hospital SystemStart: 08-28-2024 End: 17-30-5482DUA W Auto Differential panel - BloodCBC and differential Lab Routine Dizziness and giddiness Expected: 08/28/2024 (Approximate), Expires: 08/28/2025NOMS HealthcareComment on above:Expected: 08/28/2024 (Approximate), Expires: 08/28/2025Start: 08-28-2024 End: 23-18-7256Qkeqyoycyimpq metabolic 2000 panel - Serum or PlasmaComprehensive metabolic panel Lab Routine Dizziness and giddiness Expected: 08/28/2024 (Approximate), Expires: 08/28/2025NOMS HealthcareComment on above:Expected: 08/28/2024 (Approximate), Expires: 08/28/2025Start: 08-28-2024 End: 17-06-2846Xejgjumu [Mass/volume] in Serum or PlasmaFerritin Lab Routine Dizziness and giddiness Expected: 08/28/2024 (Approximate), Expires: 08/28/2025 [facility] HealthcareComment on above:Expected: 08/28/2024 (Approximate), Expires: 08/28/2025Start: 08-28-2024 End: 31-93-0831Zojo + transferrin + TIBCIron + transferrin + TIBC Lab Routine Dizziness and giddiness Expected: 08/28/2024 (Approximate), Expires: 08/28/2025 [facility] HealthcareComment on above:Expected: 08/28/2024 (Approximate), Expires: 08/28/2025Start: 08-28-2024 End: 36-13-4095Bqcda 1996 panel - Serum or PlasmaLipid panel Lab Routine Mixed hyperlipidemia (CMS/HCC) Expected: 08/28/2024 (Approximate), Expires:08/28/2025 [facility] HealthcareComment on above:Expected: 08/28/2024 (Approximate), Expires: 08/28/2025Start: 08-28-2024 End: 38-47-8778BW Breast - bilateral ScreeningBilateral screening mammogram Imaging Routine Encounter for screening mammogram for malignant neoplasm of breast Expected: 08/28/2024 (Approximate), Expires: 10/28/2025[facility] Work Phone: Comment on above:Expected: 08/28/2024 (Approximate), Expires: 10/28/2025Start: 08-28-2024 End: 08-98-5356Wdwzqat encounter procedureNOMS CWM FMComment on above:NIRMALA (obstructive sleep apnea) (Primary Dx); Morbid (severe) obesity due to excess calories (CMS/HCC); Mixed hyperlipidemia (CMS/HCC); Body mass index (BMI) 38.0-38.9, adult; Bipolar disorder, unspecified (CMS/HCC); Pulmonary hypertension, unspecified (CMS/HCC); Crohn's disease of both small and large intestine without complications (CMS/HCC); PAH (pulmonary artery hypertension) (CMS/HCC); Gastro-esophageal reflux disease without esophagitis; S/P total right hip arthroplasty; Encounter for screening mammogram for malignant neoplasm of breastStart: 18-72-5590Udogq BMI ScreeningAdult BMI ScreeningWayne Hospital SystemStart: 61-98-8575Xqhgrifez for malignant neoplasm of breastMammogramNOKY Healthcare Start: 08-07-2024 End: 77-16-1222Guacvlp encounter skvjsnjyp23/12/2025 8:15 AM EST Office Visit [facility] [address] [place] [address], [address] [place] [address] Tevin Rossi MD [address] [place] [address] [address] [place] [address] [facility] ENTStart: 08-01-2024 End: 90-19-8083Lcclybpay to same day surgery inluqu8708/01/2024 11:30 AM EST - 08/01/2024 3:30 PM EST Surgery [facility] Surgery [address] [place] [address] Tevin Rossi MD [address] [place] [address] [address] [place] [address] INSERTION STIMULATOR NERVE HYPOGLOSSAL - Inspire [34102 (CPT )][facility] SurgeryComment on above:INSERTION STIMULATOR NERVE HYPOGLOSSAL - Inspire [60009 (CPT )]Start: 08-01-2024 End: 74-58-6467BHBBTAJTV STIMULATOR NERVE HYPOGLOSSALINSERTION STIMULATOR NERVE HYPOGLOSSAL Obstructive sleep apnea NIRMALA (obstructive sleep apnea) 08/01/2024 11:30 AM ESTFLOWER SURGERYStart: 43-29-0457Zksvxjohnr hospital visit by zjbmuermz72/06/2025 11:30 AM EST Hospital Encounter [facility] Surgery [address] [place] [address] Tevin Rossi MD [address] [place] [address] [address] [place] [address] [facility] SurgeryStart: 08-01-2024 End: 55-13-8090Nyykqryag to same day surgery rzbyai7608/01/2024 7:30 AM EST - 08/01/2024 11:30 AM EST Surgery [facility] Surgery [address] [place] [address] Tevin Rossi MD [address] [place] [address] [address] [place] [address] INSERTION STIMULATOR NERVE HYPOGLOSSAL - Inspire [09876 (CPT )][facility] SurgeryComment on above:INSERTION STIMULATOR NERVE HYPOGLOSSAL - Inspire [92805 (CPT )]Start: 08-01-2024 End: 97-66-6142WTKDGLJMF STIMULATOR NERVE HYPOGLOSSALINSERTION STIMULATOR NERVE HYPOGLOSSAL Obstructive sleep apnea NIRMALA (obstructive sleep apnea) 08/01/2024 7:30 AM ESTFLOWER SURGERYStart: 43-28-2135Bwooteechc hospital visit by physician 08/01/2024 7:30 AM EST Hospital Encounter [facility] -Surgery [address] [place] [address] Tevin Rossi MD [address] [facility] [place] [address] [facility] - SurgeryStart: 07-30-2024 End: 59-40-0039Ibhxeue encounter procedureRadiologyComment on above:post op xray right hipSurgical post opStart: 07-23-2024 End: 39-99-9594Nmkgbsn encounter oskgkfstl60/28/2025 2:15 PM EST Procedure visit [facility] On [address] [address] Start: 07-01-2024 End: 84-16-2717Jmmunlkbu to same day surgery njblxw3007/01/2024 4:32 PM EST - 07/01/2024 6:47 PM [facility] Surgery [facility] Operating Room [address] [place], [place] [id number] Lois Mckeon MD [address] [id number] ARTHROPLASTY REPLACE JOINT TOTAL HIPAultman Hospital Operating RoomComment on above:ARTHROPLASTY REPLACE JOINT TOTAL HIPStart: 07-01-2024 End: 87-44-2246Uvxtlg acetblr/prox fem prostc agrft/algrftARTHROPLASTY REPLACE JOINT TOTAL HIP Primary osteoarthritis of right hip 07/01/2024 4:32 PM ESTLU OR Start: 87-84-9049Xbifrxbpul hospital visit by fojwnjtsf76/06/2025 4:32 PM EST Hospital Encounter [facility] Operating Room [address] [place], [place] [address] Lois Mckeon MD [address] [place] [address] Primary osteoarthritis of right hip [M16.11][facility] Operating RoomComment on above:Primary osteoarthritis of right hip [M16.11]Start: 29-80-1682Cbckn BMI ScreeningAdult BMI Screening [facility] SystemStart: 53-92-3488Bkedphi ScreeningTobacco Screening [facility] SystemStart: 06-05-2024 End: 59-03-2127Jkbis metabolic 2000 panel - Serum or PlasmaMer[facility] Health [facility]. [facility] Comment on above:Expected: 06/05/2024, Expires: 09/04/2024Start: 06-05-2024 End: 68-44-9026SSF W Auto Differential panel - BloodSamaritan Hospital Work Phone: Comment on above:Expected: 06/05/2024, Expires: 09/04/2024Start: 06-05-2024 End: 92-43-5976Fvnztvlp [Mass/volume] in Serum or PlasmaMercy Health St. Elizabeth Youngstown HospitalComment on above:Expected: 06/05/2024, Expires: 09/04/2024Start: 06-05-2024 End: 90-56-1049Zdyn and Iron binding capacity panel - Serum or PlasmaMercy Health St. Elizabeth Youngstown HospitalComment on above:Expected: 06/05/2024, Expires: 09/04/2024Start: 06-05-2024 End: 43-05-0880Yzaspygkaw /11/2024 10:30 AM EST PAT Pre Anesthesia [address] [place] [address] ARTHROPLASTY REPLACE JOINT TOTAL HIP [3131] - Hip - RightPre AnesthesiaComment on above:ARTHROPLASTY REPLACE JOINT TOTAL HIP [3131] - Hip - RightStart: 05-29-2024 End: 72-12-6026Osziwkr encounter bqsuepcui31/04/2024 2:20 PM EST Office Visit [facility] [address] [place] [address] Pauline Ryan NP [address] [place] [address] NIRMALA (obstructive sleep apnea) (Primary Dx); PAH (pulmonary artery hypertension) (CMS/HCC); Chronicright hip pain; Morbid (severe) obesity due to excess calories (CMS/HCC); Bipolar 1 disorder (CMS/HCC); AnxietyNOMS CWM FMComment on above:NIRMALA (obstructive sleep apnea) (Primary Dx); PAH (pulmonary artery hypertension) (CMS/HCC); Chronic right hip pain; Morbid (severe) obesity due to excess calories (CMS/HCC); Bipolar 1 disorder (CMS/HCC); AnxietyStart: 05-21-2024 End: 68-89-6897Dpgfqcv encounter xzlctperu28/26/2024 9:00 AM EST Office Visit [facility] [address] [place] [address] Pauline Ryan NP [address] [place] [address] [facility] FMStart: 05-17-2024 End: 09-71-8802Eyotkoy encounter bgwhwpuap98/22/2024 8:15 AM EST Office Visit [facility] [address] [place] [place] [address] Tevin Rossi MD [address] [place] [address] [address] [place] [address] [facility] ThroatStart: 05-09-2024 End: 57-70-5507Tpilmfvwo to same day surgery xgigzc7505/09/2024 10:30 AM EST - 05/09/2024 11:00 AM EST Surgery [facility] - Surgery [address] [place] [address] Tevin Rossi MD [address] [facility] [address] [place] [address] ENDOSCOPIC DIAGNOSTIC DRUG INDUCED SLEEP [81541 (CPT )] [facility] HospitalComment on above:ENDOSCOPIC DIAGNOSTIC DRUG INDUCED SLEEP [14854 (CPT )]Start: 05-09-2024 Subsequent hospital visit by ixdxltuke16/14/2024 10:30 AM EST Hospital Encounter [facility] Surgery [address] [place] [address] Tevin Rossi MD [address] [facility] [address] [place] [address] [facility] HospitalStart: 05-09-2024 End: 03-47-7508ZQWLCWDYEB DIAGNOSTIC DRUG INDUCED SLEEPFLOWER SURGERYStart: 05-02-2024 End: 69-91-3661Ofrcjvxzb to gnlmbcbitmwuq46/07/2024 3:45 PM EST Support [facility] [address] [address]NzcQiradt [facility] Start: 04-16-2024 End: 30-19-7757Iqnduly encounter jqedothdd39/22/2024 1:10 PM EDT Office Visit Orthopaedics [address] [place] [address] Lois Mckeon MD [address] [place], [place] [address] MRI follow upOrthopaedicsComment on above:MRI follow upStart: 04-10-2024 End: 41-86-1383Nrbkpkt encounter procedureNOMS CWM FMComment on above:Arrived Start: 02-29-2024 End: 40-37-3486Kbznebz encounter iorhhuqxm13/05/2024 8:40 AM EDT Office Visit [facility] [address] [place] [address] Pauline Ryan NP [address] [place] [address] Chronic rhinitis; Gastroesophageal reflux disease, unspecified whether esophagitis presentNOMS CWM FMComment on above:Chronic rhinitis; Gastroesophageal reflux disease, unspecified whether esophagitis presentStart: 98-38-7689Ufjqq-19 Vaccine ()Covid-19 Vaccine ()[facility]: 85-67-6366Uqzvgecot vaccinationMercy Health St. [facility] Start: 13-08-2780MFSGXPAM SCREENDIABETES SCREENRegency Hospital [facility]edotart: 12-15-2023 Diabetes ScreeningDiabetes ScreeningRegency Hospital [facility]otart: 09-12-2023 End: 39-69-8536Bkvsgoc encounter imbzspseg34/19/2024 7:45 AM EDT Office Visit [facility] [address] [place] [address] Imani Krueger, DRIER ATTENDANT-DIRECTOR OF PERSONNEL [address] [place] [address] [facility] ClinicStart: 09-01-2023 End: 66-97-8608Nroaynych to same day surgery qydrzq8809/01/2023 9:18 AM EST - 09/01/2023 9:22 AM EST Surgery [facility] P rocedures [address] [place] [address] Pj Gannon MD [address] [place], [place] [address] INJECTION BURSA LARGE JOINT Right Hip [ (CPT )][facility] ProceduresComment on above:INJECTION BURSA LARGE JOINT Right Hip [ (CPT )]Start: 09-01-2023 End: 68-71-7998Lwygybsmxwctxu aspir&/inj major jt/bursa w/o usINJECTION BURSA LARGE JOINT Chronic right hip pain 09/01/2023 9:18 AM ESTFREMONT PAINStart: 01-89-0920Wxugburnfm hospital visit by /08/2024 9:18 AM EST Hospital Encounter [facility] [address] [place] [address] Pj Gannon MD [address] [place], [place] [address] [facility] ProceduresStart: 08-30-2023 End: 20-00-0349Uhferla encounter cbwvzxcfu93/06/2024 8:15 AM EST Office Visit [facility] [address] [place] [address] Evans Anderson, PAAndrewC [address] [facility] 2nd Floor [place], [place] [address] [facility] ClinicStart: 70-65-3703Tzeaqezrd for malignant neoplasm of breastMammogram ScreeningRegency Hospital [facility]otart: 02-24-2023 Influenza vaccinationInfluenza VaccineWayne Hospital SystemStart: 02-14-2023 Adult depression screening assessmentDEPRESSION SCREENINGRegency Hospital [facility]: 61-00-9621Wuwfsqgsf vaccinationINFLUENZA (#1)[facility]: 12-15-2021 ColonoscopyCOLONOSCOPYRegency Hospital [facility]: 02-57-6818BRLMQWNPEV CANCER SCREENINGCOLORECTAL CANCER SCREENINGReg[facility] Hospital [facility]: 34-24-6878Jqbpbaitq for malignant neoplasm of colonRegency Hospital [facility]otart: 85-78-4687YQTSPLGPY (FIT-DNA)COLOGUARD (FIT-DNA)[facility]: 38-56-2613XB COLONOGRAPHYCT COLONOGRAPHYRegency Hospital [facility]: 75-51-5101HXCQB OCCULT BLOODFECAL OCCULT BLOODReg[facility]: 45-40-6591Owcsd panelLipid ScreeningMercy Health St. [facility] Start: 12-30-1911CIDRI SCREENLIPID SCREENRegency Hospital [facility]: 2021 Screening for malignant neoplasm of colonRegency Hospital [facility]: 2021 SIGMOIDOSCOPYSIGMOIDOSCOPYRegency Hospital [facility]: 31-67-5649BlgrsradkclHSZQPJFOU [facility]: 46-87-8101ZUF TESTINGHPV TESTINGReg[facility]: 26-30-0138Hpkzypbhi for malignant neoplasm of cervixHPV/CotestNOMS Healthcare Start: 26-24-1259QZO TESTINGPAP TESTINGRegency Hospital [facility]: 1997 Screening for malignant neoplasm of cervixRegency Hospital [facility]ot[facility]: 1995 DTaP,Tdap and Td Vaccines (1 - Tdap)DTaP,Tdap and Td Vaccines (1 - Tdap) [facility]: 46-94-0557VYCUTWMOA B (1 of 3 - Risk 3-dose series)HEPATITIS B (1 of 3 - Risk 3-dose series)[facility]: 44-41-9566Qjfbhnzin B Vaccine (1 of 3 - 19+ 3-dose series)Hepatitis B Vaccine (1 of 3 - 19+ 3-dose series)[facility]: 48-38-4416Rygsr microalbumin profileRegency Hospital [facility]otart: 27-53-5354Mdiwi BMI Follow Up PlanAdult BMI Follow Up [facility]: 69-77-7419Bcjisnj ScreeningAnxiety ScreeningRegency Hospital [facility]: 57-21-3137Pzkvfmqhcq ScreeningDepression ScreeningReg[facility]: 62-57-0583LGN SCREENINGHIV SCREENINGReg[facility]: 18-17-7016EVN screeningHIV ScreeningRegency Hospital [facility]: 34-11-1595UAY (1 of 2 - Risk 2-dose series)MMR (1 of 2 - Risk 2-dose series) [facility]: 68-35-6255Bvpjd depression screening assessmentDEPRESSION SCREENINGRegency Hospital [facility]: 08-80-5137IJWEVUIVMWXOW B: Consider based on risk (1 of 4 - Increased Risk Bexsero 2-dose series)MENINGOCOCCAL B: Consider based on risk (1 of 4 - Increased Risk Bexsero 2-dose series)[facility] Start: 12-76-9265SSIGLAWCD A (1 of 2 - Risk 2-dose series)HEPATITIS A (1 of 2 - Risk 2-dose series)[facility]: 51-19-1948MCSMG-19 VACCINE (#1)COVID- 19 VACCINE (#1)[facility] HospitalEC COMPLETEECG COMPLETE ECG Routine Pre-op evaluation 06/05/2024 10:36 AM [facility] End: 23-91-8861BE Hip - right WO contrastMRI HIP WO IVCON RIGHT Radiology Routine Pain of right hip 1 Occurrences starting 03/19/2024 until 04/18/2025 [facility] Work Phone: comment on above:1 Occurrences starting 03/19/2024 until 04/18/2025 End: 66-08-7935UQ Pelvis and Hip - right 2 ViewsX-ray hip right 2-3 views with or without pelvis Imaging Routine Chronic right hip pain 1 Occurrences starting 08/21/2023 until 08/20/2024[facility] Work Phone: Comment on above:1 Occurrences starting 08/21/2023 until 08/20/2024[facility] Immunizations Immunization DateImmunizationNotesCare QgcjkgcxKsvantij62-88-6625wyefqgdid virus vaccine, whole virusLisa Aichholz LOG CHAIN FEEDER Work Phone: [facility] HospitalKuhlqyygdg85-50-1998zcelwkuwf, injectable, quadrivalent, contains preservativeLisa Aichholz [employer] CH[employer] FEEDER Work Phone: [facility] HospitalNcqiclrtay89-53-7996nozytyebk, wholePatrick GARCIA [facility] [place] 911931-08-2012influenza virus vaccine, unspecified formulationEvans Anderson PA-C Work Phone: Pro[facility] HospitalGetMyRx System Payers DatePayer CategoryPayerPolicy [id number] Care O (unspecified)[place] [id number] 2023Medicaid [facility] [id number] Health Insurance [id number] 2021MedicaidUHC MEDICAID [facility] [employer] MEDICAID [id number] 2020-Present [phone] [address] [place] [address] [id number] [id number] [id number] 2.16.840.1.169653.3.57[id number] 2.840.1.102231.3.57[id number] 2.16.840.1.708683.3.579.[id number] 2.16.840.1.628934.3.57[id number] 2.16.840.1.448618.3.579.[id number] 2.16.840.1.156694.3.579.[id number] 2.16.840.1.683713.3.579.2.07447-73-1263Txvuuwg8931901 2.16.840.1.760063.3.579.[id number] 2.16.840.1.882865.3.579.2.09794-44-6021Kpbmoeg2609086 2.16.840.1.055774.3.579.2.00215-45-8891Afmpumm6646117 2.16.840.1.832732.3.579.2.75227-19-5205Zszspid4579334 2.16.840.1.375492.3.579.2.68627-24-8745Qttusaq7690879 2.16.840.1.888642.3.579.2.99038-26-6379Cvyskwx9962946 2.16.840.1.958717.3.579.2.36800-29-8501Zsqgzcy7716235 2.16.840.1.712540.3.579.2.19845-80-5614Uwzvnyp9034654 2.16.840.1.265409.3.57[id number] 2.16.840.1.266501.3.579.2.62067-47-6549Cmnnlqa7227448 2.16.840.1.867896.3.579.2.90614-75-5338Gyorlaf3258329 2.16.840.1.310677.3.579.2.86382-16-2713Uqtxtlx6142665 2.16.840.1.403117.3.579.2.90671-55-3123Sznrymq2553713 2.840.1.407065.3.579.2.00823-40-3543Efhlfno5974668 2.840.1.259146.3.579.2.01607-72-7526Vnryngy4326832 2.16.840.1.567831.3.579.2.10797-85-8971Uxdraew751286887 2.840.1.030648.3.579.2.792575-55-7827Ojbnhfo919794272 2.840.1.202917.3.579.2.658122-92-1618Agrycjj80276489 2..840.1.581154.3.579.2.726235-00-0501Ajzhsvq80907932 2.840.1.937692.3.579.2.214564-17-4483Syugamd29939431 2.840.1.779217.3.579.2.461106-48-8747Hyshscm88841377 2..840.1.109660.3.579.2.805995-21-1965Dekaknz454486739 2.840.1.349176.3.579.2.094465-42-7718Ojankrw73437474 2..840.1.931719.3.579.2.190518-75-7160Nmxckzo20985179 2.840.1.739157.3.579.2.10[id number] 2.16.840.1.889768.3.579.2.[id number] 2.16.840.1.755771.3.579.2.67410-03-7778Nnonexx75944426 2.16.840.1.121227.3.579.2.01068-87-8207Yrksabs79182880 2.16.840.1.021621.3.579.2.89112-11-0639Fkrfise79417718 2.16.840.1.614381.3.57[id number] 2.16.840.1.336204.3.57[id number] 2.840.1.690432.3.57[id number] 2..840.1.953581.3.579.2.8[id number] 2.16.840.1.093610.3.57[id number] 2.16.840.1.257644.3.57[id number] 2.16.840.1.060011.3.57[id number] 2.16.840.1.028498.3.57[id number] 2.16.840.1.056780.3.57[id number] 2.16.840.1.742041.3.57[id number] 2.16.840.1.214682.3.57[id number] 2.16.840.1.057958.3.579.[id number] 2.16.840.1.447459.3.579.[id number] 2.16.840.1.276686.19 [id number] Social History DateTypeDetailFacilityStart: 02-21-2022 End: 45-65-1767Lfa Assigned At [facility] [employer] Other Start: 07-27-2016 End: 10-84-3572Ztnqvda smoking status NHISNever smoked tobaccoMer[facility] Start: 07-27-2016 End: 40-51-9940Inunrfh use and exposureSmokeless tobacco non-userRegency Hospital Toledotart: 12-15-2020 End: 48-10-7345Vtlrvjn intakeCurrent non-drinker of alcohol (finding)[facility]: 31-62-0325Yxd Assigned At [facility] HospitalNot on fileRegency Hospital Toledotart: 01-07-2022 End: 38-63-9584Dcuuylyi to SARS-CoV-2 (event)Not sureMercy Health St[facility] HospitalTobaccoPast Wilson Street HospitalComment on above:stopped 12 years agostopped 12 years agoTobacco smoking statusExecutive [facility] Tobacco smoking statusNeverOhiohealth Grant [facility] Center Digestive HealthStart: 02-21-2022 End: 96-99-8288Nlqqfwa of Social functionRegency Hospital Toledotart: 02-29-2024 End: [id number] beverage intakeLifetime non-drinker (finding)[facility]OM[facility] HealthcareAre you now , , , , never or living with a partner?MarriedNOMS HealthcareHow often to you have a drink containing alcohol?NeverNOMS Healthcare(I/We) worried whether (my/our) food would run out before (I/we) got money to buy more.Never trueNOMS HealthcareIn the past 12 months, was there a time when you were not able to pay the mortgage or rent on time?NoNOMS HealthcareStart: [id number] Commentcaffeine intake: 1-2 cups per dayNOMS HealthcareStart: 12-09-2010 End: [id number] (finding)[facility] SystemHow hard is it for you to pay for the very basics like food, housing, medical care, and heatingNot very hardNOMS HealthcareDo you feel stress - tense, restless, nervous, or anxious, or unable to sleep at night because yourmind is troubled all the time - these days [OSQ]Only a littleNOMS HealthcareTobacco smoking status NHISUnknown if ever smokedC[facility] Clinic Work Phone: Start: [phone] Assigned At [facility] Hospitaltart: [phone] smoking statusEx-smoker (finding)[facility] HospitalNEGATED: Highlighted rowStart: NINFHistory of tobacco usePassive smokerNOKY Healthcare Medical Equipment Procedure CodeEquipment CodeEquipment Original TextEquipment IdentifierDates Insert Acetabular 32mm 0d D Hip X3 Trident Sterile Latex Free - [id number]: 34-84-9176Phxwm Trident Ii 48mm D Tritanium Acetabular 3 Screw Hole Cluster Sterile - [id number]: 38-81-8677Zcdc Femoral 8x99mm Size 2 High Insignia Collared - [id number]: 07-01-2024 Head V40 32mm -4mm Offset Taper Biolox Delta Femoral Hip - [id number] Start: 28-19-5951Ugxih Trident Ii 6.5mm 30mm Bone Low Profile Hexagonal Sterile - [id number]: 74-98-6819Ejnjtrpsy [facility] - [id number] - [id number]: 09-63-1601Tzsh Ns Respiratory - [id number] - [id number]: 79-07-7710Nnyk [facility] Inspr 3 Elect Cuf Tnl [address] [facility] Lf - [id number] - [id number]: 08-22-2024 Functional Status HicjWibvdu[id number] StatusN/A[facility]04[facility]2023Functional StatusN/A[facility]06-01-2023Functional StatusN/A [facility] Digestive [id number] StatusN/A [facility] Clinical Notes 12-14-2020 to 03-31-2025 Note Date & EkvfCjmqSkcycyzl39-42-2050 NoteUT Cardiology - [facility] Subjective Stacey Sahu is a 49 y.o. year old female patient being seen for chest pain. Patient states 2 weeks ago she was having chest pain which radiated down her left arm to her fingers, chest pain with and without activity. Patient states she was SOB/COBIAN, fatigue. Patient states she seen her family Dr the next day and had and EKG, lab, chest x-ray. Patient states its some what better. Patient Active Problem List Diagnosis Bipolar depression [...] lumbar intervertebral disc Neurostimulator device in situ Greater trochanteric bursitis of right hip Pain due to total hip replacement Bipolar 1 disorder, depressed, full remission Dyslipidemia Elevated glucose level Generalized anxiety disorder Hyperoxaluria Primary hypertension Family History Problem Relation Name Age of Onset Cancer Mother Joselin Coronary artery disease Father Dante Angina Father Dante Asthma Father Dante Heart disease Father Dante Social History Tobacco Use Smoking status: Never Smokeless tobacco: Never Vaping Use Vaping status: Never Used Substance Use Topics Alcohol use: Never Drug use: Never HPI Erlinda is seen in follow-up. She is a 49-year-old woman. She was [...] PACs seen on prior Holter monitor. At visit in September 2024 she was started on diltiazem to help with palpitations. Also her blood pressure was elevated. An echocardiogram was ordered. This was performed on 11/01/2024 and showed normal ventricular function and no significant valvular abnormalities with normal right-sided pressures. At visit of 11/11/2024 I added losartan 100 mg once daily due to uncontrolled hypertension. Today she is seen because of development of chest pain over the past week. She reports that she has feeling of pressure located to the left side of the chest with radiation to the left arm and tingling down the fingers. This happened over a period of 4 days on and off and then subsided on its own. She has not been taking her medications regularly and takes them only as needed. Review of Systems Constitutional: Positive for malaise/fatigue. Cardiovascular: Positive for chest pain (improving) and dyspnea on exertion. Respiratory: Positive for shortness of breath. All other systems reviewed and are negative. Objective Visit Vitals BP 139/90 (BP Location: Right arm, Patient Position: Sitting) Pulse 81 Ht 1.524 m (5') Wt 92.1 kg (203 lb) SpO2 100% BMI 39.65 kg/m??? Smoking Status Never BSA 1.97 m??? Physical Exam Constitutional: Appearance: She is [...] is no distension. Palpations: Abdomen is soft. (more content not included)...[facility]10-[facility] History of Present illness Narrative* Laxmi Dudley NP - 03/26/2025 11:30 AM EDT Images from the original note were not included. Subjective ?Quick Links Last Note in Specialty Snapshot Edit RFV/CC Edit Screenings Current Meds Patient ID: Stacey Sahu is a 49 y.o. female who presents for Follow-up. HPI History of Present Illness The patient presents for evaluation of chest pain and numbness in the arm. She reports an improvement in the numbness in her arm. Denies having anymore numbness to her left arm. She has good range of motion in her arm. She continues to experience chest pain, although it is less frequent than before. The pain is localized in the middle of her chest and does not seem to be triggered by specific movements. She has a scheduled appointment with a production or plant engineer next week. ?Quick Review Review Full History Meds - ARIPiprazole (Abilify) 15 MG tablet atorvastatin (Lipitor) 80 MG tablet busPIRone (Buspar) 15 MG tablet cyclobenzaprine (Flexeril) 10 MG tablet dilTIAZem CD (Cardizem CD) 120 MG 24 hr capsule hydrocortisone 1 % cream losartan (Cozaar) 100 MG tablet meloxicam (Mobic) 15 MG tablet omeprazole (PriLOSEC) [address] capsule --- PMH - Acute thigh pain, right Allergic rhinitis Anxiety Bipolar disorder (HCC) Chest pain Chronic GERD Chronic rhinitis Constipation COVID-19 Crohn's disease (HCC) De Quervain's tenosynovitis, right Dyspnea on exertion Edema of extremities Elevated serum glucose Enlarged thyroid Flank pain Gross hematuria History of nausea Hot flashes Hyperlipidemia Lumbar back pain with radiculopathy affecting right lower extremity Multiple thyroid nodules Nocturia Obese Obesity, morbid (CMS-HCC) NIRMALA (obstructive sleep apnea) Other acute sinusitis Other hyperlipidemia Pain of right upper extremity Pelvic pain Pulmonary arterial hypertension (HCC) Right hip pain Shingles Shortness of breath Small bowel obstruction (HCC) Superficial venous thrombosis of arm, right Trochanteric bursitis, right hip URI, acute Urine discoloration Weight gain Objective ?Quick Links Add Vitals Timeline (Adult) Labs Imaging Results Review Trend Vitals ?? Avoid pulling in long tables of results. Comment on relevant results to support your medical decision making. BP 120/82 Pulse 78 Temp 97 F Wt 202 lb SpO2 96% BMI 37.86 kg/m Physical Exam Vitals and nursing note reviewed. Constitutional: Appearance: Normal appearance. HENT: Head: Normocephalic and atraumatic. Nose: Nose normal. Mouth/Throat: Mouth: Mucous membranes are moist. Cardiovascular: Rate and Rhythm: Normal rate and regular rhythm. Pulses: Normal pulses. Heart sounds: Normal heart sounds. Pulmonary: Effort: Pulmonary effort is normal. Breath sounds: Normal breath sounds. Musculoskeletal: Right shoulder: No tenderness or bony tenderness. Normal range of motion. Right upper arm: No tenderness or bony tenderness. Right lower leg: No edema. Left lower leg: No edema. Skin: General: Skin is warm and dry. Neurological: General: No focal deficit present. Mental Status: She is alert and oriented to person, place, and time. GCS: GCS eye subscore is 4. GCS verbal subscore is 5. GCS motor subscore is 6. Sensory: Sensation is intact. Motor: Motor function is intact. Coordination: Coordination is intact. Gait: Gait is intact. Psychiatric: Mood and Affect: Mood normal. Behavior: Behavior normal. Physical Exam Respiratory: Clear to auscultation, no wheezing, rales or rhonchi Cardiovascular: Regular rate and rhythm, no murmurs, rubs, or gallops Musculoskeletal: Full range of motion in the arm, no pain on palpation ?Quick Links Full Problem List Allergy Cardiology Chronic Pain GI Hypertension Thyroid Assessment & Plan Left arm numbness Left arm numbness has resolved. Chest pressure Chest pressure has decreased to once or twice daily. Pain is not reproducible and comes on randomly. EKG completed last week showed a PVC with sinus rhythm. She has an appointment with Cardiology on 03/31/25. Assessment & Plan 1. Chest pain: - The chest pain is still present but less frequent and occurs randomly without being associated with specific movements. - An EKG showed one PVC, and a chest x-ray was normal. - There was a discussion about the upcoming cardiology appointment next week for further evaluation. . - Advised to follow up with cardiology and seek immediate medical attention at the ER if the chest pain persists or worsens. 2. Arm numbness: - The numbness in the left arm has improved. - Examination shows good range of motion and no pain upon palpation. - Previous x-rays indicated degenerative changes consistent with arthritis. Follow-up: The patient will follow up in May as scheduled or sooner if needed. documented in this encounterBarnes-Jewish [facility] HospitalFlwnpzjmnz57-05-0813 NoteOrthopedic Surgery Subjective Chief complaint: Chief Complaint Patient presents with ??? Right Hip - Pain 03/20/25 Stacey Sahu is a 49 y.o. year old female s/p R SIOBHAN (06/2024, Dr. Mckeon) who presents for right hip pain and concerns for limb length discrepancy. Patient endorses that she has a sharp right hip pain laterally. Does endorse she has some tingling and numbness that goes down to her foot. Patient denies fever, chills, or drainage from her incision. Patient has tried Tylenol and Mobic which were moderately helpful. Patient has also tried PT, injections and nerve block which was helpful as well. PMH of Crohn's disease (diet controlled, bipolar, anxiety, obstructive sleep apnea PSH: Small intestine resection for Crohn's disease, tubal ligation, hysterectomy Allergies: Penicillin History Surgical History[1] Medical History[2] Review of Systems Objective Right Hip: Inspection- no ecchymosis, no edema, well-healed posterior skin incision Tender to palpation over greater trochanter bursa, otherwise non-tender Hip ROM: Internal Rotation 30??? External Rotation 50??? Flexion 120??? Strength: Hip Flexion 5/5 Hip Extension 5/5 Hip Abduction 5/5 Hip Adduction 5/5 Knee Flexion 5/5 Knee Extension 5/5 Sensation: intact over superficial peroneal, deep peroneal and tibial nerve distributions Gait: Patient walks with out-toeing gait, no Trendelenburg gait Imaging personally reviewed: Radiographs of the right hip and pelvis ordered and obtained at today's visit personally reviewed and interpreted by me demonstrate appropriately positioned left SIOBHAN without evidence of loosening or migration. Imaging personally reviewed and interpreted by attending physician. Findings discussed with patient. Assessment/Plan Stacey Sahu is a 49 y.o. year old female /p R SIOBHAN (06/2024, Dr. Mckeon) who presents with right greater trochanter bursitis. We had a good discussion today with the patient about treatment options. Patient elected to proceed with injection of the bursa. verbal consent was obtained clinic today. Patient was agreeable to plan. All questions were answered. Hip pain, right [M25.551] Large Joint: R greater trochanteric bursa on [...] Kenalog into the Right greater trochanteric bursa The procedure completed without complications and patient tolerated the procedure well. I was personally present for the entire procedure. Procedure, treatment alternatives, risks and benefits explained, specific risks discussed. Immediately prior to procedure a time out was called to verify the correct patient, procedure, equipment, customer support agent and site/side marked as required. Patient was prepped and draped in the usual sterile fashion. -Right GT bursitis injection today in clinic Return to Clinic as needed Melly Soni MD Orthopaedic Surgery, PGY-1 03/20/25 6:09 PM Ortho Pager [phone] May contact the on-call resident with any concerns via the Orthopaedic pager at any time. [1] Past Surgical History: Procedure Laterality Date ??? HIP ARTHROPLASTY ??? HYSTERECTOMY [2] Past Medical History: Diagnosis Date ??? Anxiety ??? Arthritis ??? Bursitis of hip ??? Depression ??? Hypertension ??? Pulmonary hypertension (CMS/HCC) ??? Sleep apnea ??? (spontaneous vaginal delivery) [facility]2016[facility] History of Present illness Narrative* Laxmi Dudley NP - 03/19/2025 10:00 AM EDT Images from the original note were not included. Subjective ?Quick Links Last Note in Specialty Snapshot Edit RFV/CC Edit Screenings Current Meds Patient ID: Stacey Sahu is a 49 y.o. female who presents for Numbness (Patient is here for leftarm numbness that started yesterday morning. No trama to the area was noted. ). Neuropathy The patient experiences pain in the morning. Quality of pain: numbing and squeezing. Symptoms do not include alternating diarrhea and constipation, bloating, blurred vision, constipation, diarrhea, dry mouth, eye dryness, lack of sweating or nausea. History of Present Illness The patient presents for evaluation of left shoulder/arm numbness and tingling. She reports experiencing numbness and tingling in her left shoulder, which she first noticed on 03/18/2025. Initially, she attributed it to an awkward sleeping position, but the discomfort has since intensified. The sensation is described as similar to her hand falling asleep. Additionally, she mentions a feeling of swelling in her fingers. There is no weakness in the arm, but she feels uncomfortable. She does not have any neck issues or facial numbness or tingling. She has previously taken Flexeril and Aleve for muscle relaxation. She has a history of neuritis, but the current symptoms are different, characterized by a squeezing and pressure sensation in her shoulder. There is no history of diabetes. She experienced heaviness in her chest on 03/18/2025 while climbing stairs, which subsided after a brief rest. Occasionally, she experiences chest pain, but it is not a constant symptom. The chest pressure is described as if someone was sitting on her chest, which she felt briefly yesterday but nottoday. She is under the care of a production or plant engineer for pulmonary hypertension, with her last visit in 10/2024. She reports no abdominal pain, nausea, vomiting, or shortness of breath today. She denies any chest pressure or heaviness today. PAST SURGICAL HISTORY: - Carpal tunnel surgery on the left wrist for nerve issues ?Quick Review Review Full History Meds - ARIPiprazole (Abilify) 15 MG tablet atorvastatin (Lipitor) 80 MG tablet busPIRone (Buspar) 15 MG tablet dilTIAZem CD (Cardizem CD) 120 MG 24 hr capsule hydrocortisone 1 % cream losartan (Cozaar) 100 MG tablet meloxicam (Mobic) 15 MG tablet omeprazole (PriLOSEC) [address] capsule cyclobenzaprine (Flexeril) 10 MG tablet --- PMH - Acute thigh pain, right Allergic rhinitis Anxiety Bipolar disorder (HCC) Chest pain Chronic GERD Chronic rhinitis Constipation COVID-19 Crohn's disease (HCC) De Quervain's tenosynovitis, right Dyspnea on exertion Edema of extremities Elevated serum glucose Enlarged thyroid Flank pain Gross hematuria History of nausea Hot flashes Hyperlipidemia Lumbar back pain with radiculopathy affecting right lower extremity Multiple thyroid nodules Nocturia Obese Obesity, morbid (CMS-HCC) NIRMALA (obstructive sleep apnea) Other acute sinusitis Other hyperlipidemia Pain of right upper extremity Pelvic pain Pulmonary arterial hypertension (HCC) Right hip pain Shingles Shortness of breath Small bowel obstruction (HCC) Superficial venous thrombosis of arm, right Trochanteric bursitis, right hip URI, acute Urine discoloration Weight gain Objective ?Quick Links Add Vitals Timeline (Adult) Labs Imaging Results Review Trend Vitals ?? Avoid pulling in long tables of results. Comment on relevant results to support your medical decision making. BP 120/86 Pulse 87 Temp 97.3 F Wt 205 lb 9.6 oz SpO2 97% BMI 38.53 kg/m Physical Exam Vitals and nursing note reviewed. Constitutional: Appearance: Normal appearance. HENT: Head: Normocephalic and atraumatic. Right Ear: Tympanic membrane normal. Left Ear: Tympanic membrane normal. Nose: Nose normal. Mouth/Throat: Mouth: Mucous membranes are moist. Eyes: Extraocular Movements: Extraocular movements intact. Pupils: Pupils are equal, round, and reactive to light. Cardiovascular: Rate and Rhythm: Normal rate and regular rhythm. Pulses: Normal pulses. Heart sounds: Normal heart sounds. Pulmonary: Effort: Pulmonary effort is normal. No respiratory distress. Breath sounds: Normal breath sounds. No stridor. No wheezing, rhonchi or rales. Chest: Chest wall: No tenderness. Musculoskeletal: Left shoulder: Tenderness present. No swelling or bony tenderness. Normal range of motion. Normal strength. Left upper arm: No swelling, edema, tenderness or bony tenderness. Left elbow: No swelling. Normal range of motion. No tenderness. Left forearm: No swelling, edema, tenderness or bony tenderness. Left wrist: No swelling or tenderness. Normal range of motion. Normal pulse. Left hand: No swelling or bony tenderness. Normal range of motion. Normal strength. Normal sensation. Normal pulse. Arms: Right lower leg: No edema. Left lower leg: No edema. Comments: Pain and tenderness to left posterior shoulder over trapezius muscular area. No bony tenderness noted. Muscle strength to left shoulder and left arm 5/5. Skin: General: Skin is warm and dry. Neurological: General: No focal deficit present. Mental Status: She is alert and oriented to person, place, and time. GCS: GCS eye subscore is 4. GCS verbal subscore is 5. GCS motor subscore is 6. Cranial Nerves: Cranial nerves 2-12 are intact. Sensory: Sensation is intact. Motor: Motor function is intact. No weakness. Coordination: Coordination is intact. Gait: Gait is intact. Psychiatric: Mood and Affect: Mood normal. Behavior: Behavior normal. Physical Exam Neurological: Strength is good on the left side. Sensation is equal bilaterally. No numbness or tingling in the face. Cranial nerves II-XII grossly intact. Eyes: Pupils are reactive to light and accommodation. Neck: No pain on palpation. Respiratory: Clear to auscultation, no wheezing, rales or rhonchi. Cardiovascular: Regular rate and rhythm, no murmurs, rubs, or gallops. Musculoskeletal: Tenderness in the left shoulder. No pain on movement of the neck. Increased muscletension on the left side. ?Quick Links Full Problem List Allergy Cardiology Chronic Pain GI Hypertension Thyroid Assessment & Plan Chest pressure Orders: CBC and differential; Future Comprehensive metabolic panel; Future TSH W/REFLEX TO FT4; Future ECG 12 lead; Future Vitamin B12; Future XR chest 2 views; Future Left arm numbness Orders: TSH W/REFLEX TO FT4; Future ECG 12 lead; Future Vitamin B12; Future XR chest 2 views; Future XR cervical spine 2 or 3 views; Future Ferritin; Future Acute pain of left shoulder Orders: XR shoulder 2+ views left; Future cyclobenzaprine (Flexeril) 10 MG tablet; Take 0.5 tablets (5 mg) by mouth 3 (three) times a day as needed for muscle spasms for up to 5 days Assessment & Plan 1. Left shoulder numbness and tingling: - Symptoms include numbness and tingling in the left shoulder, which started yesterday and worsened. - Physical exam findings show discomfort and pressure in the shoulder, with strength being good on the affected side. - Blood work, chest x-ray, cervical spine x-ray, and shoulder x-ray are ordered to assess the condition. The possibility of neuropathy is considered, and an EMG may be performed if symptoms persist. - Flexeril, half a tablet three times daily as needed for 5 days is prescribed. The patient is advised to use a wrist or arm splint at night for relief. 2. Chest pressure: - The patient reported chest pressure that started yesterday but went away. - Blood work will be conducted to check iron levels, vitamin B12, blood counts, CMP, and thyroid levels. A chest x-ray and cervical spine x-ray will be performed to rule out any abnormalities. An EKGwill be done at the hospital. - The patient is advised to seek immediate medical attention at the ER if she experiences chest pressure or arm numbness again. She is also advised to follow up with her production or plant engineer regarding these symptoms. Follow-up: The patient will follow up in 1 week. documented in this encounterBarnes-Jewish Saint Peters [id number] History of Present illness Narrative* Laxmi Dudley NP - 03/10/2025 11:00 AM EDTAssociated Problem(s): Bipolar 1 disorder (HCC) Stable on Abilify 15mg daily. Does not want to see Psych. * Laxmi Dudley NP - 03/10/2025 11:00 AM EDTAssociated Problem(s): Anxiety Stable on Buspar and Abilify. * Laxmi Dudley NP - 03/10/2025 11:00 AM EDTAssociated Problem(s): NIRMALA (obstructive sleep apnea) Had the inspire placed. Has had no issues with sleep since the inspire * Laxmi Dudley NP - 03/10/2025 11:00 AM EDTAssociated Problem(s): Hyperlipidemia Stable on Atorvastatin * Laxmi Dudley NP - 03/10/2025 11:00 AM EDTAssociated Problem(s): Chronic right hip pain Follows with orthopedics. * Laxmi Dudley NP - 03/10/2025 11:00 AM EDTAssociated Problem(s): Primary hypertension Stable on Losartan * Laxmi Dudley NP - 03/10/2025 11:00 AM EDTAssociated Problem(s): Morbid (severe) obesity due to excess calories ([facility]) Work on healthy habits. * Laxmi Dudley NP - 03/10/2025 11:00 AM EDT Subjective ?Quick Links Last Note in Specialty Snapshot Edit RFV/CC Edit Screenings Current Meds Patient ID: Stacey Sahu is a 49 y.o. female who presents for [facility]. HPI History of Present Illness The patient presents to [facility]. She reports a sensation of heat on her face, princess to a sunburn, which has been persisting for approximately a month. This sensation is particularly pronounced around her eyes and can occur even during sleep. She does not experience any dryness or flakiness of the skin. The onset of this sensation appears to be random and is not exacerbated by sun exposure. She has not observed any associated redness or prominent blood vessels. She has not introduced any new topical treatments such as creams or lotions. She takes allergy medications as needed. She is under the care of a production or plant engineer, whom she consults every six months. She has not experienced any recent chest pain or shortness of breath. She was prescribed Cardizem for PVCs and PACs, whichhas improved her dizziness. She has a history of sleep apnea and has undergone Inspire therapy, which has significantly improved her condition. She no longer uses CPAP. She also has a history of reflux disease, which is well-managed with medication. She experiences chronic hip pain and is under the care of an orthopedic designer. She underwent hip replacement surgery in 06/2024, with mixed results. She has anxiety and bipolar disorder. She is currently on Abilify and BuSpar, which she reports areeffective. She had previously consulted a psychiatrist at [facility] but did not find the experiencebeneficial. PAST SURGICAL HISTORY: - Hip replacement surgery in 06/2024 - Inspire therapy for sleep apnea ?Quick Review Review Full History Meds - ARIPiprazole (Abilify) 15 MG tablet atorvastatin (Lipitor) 80 MG tablet busPIRone (Buspar) 15 MG tablet dilTIAZem CD (Cardizem CD) 120 MG 24 hr capsule losartan (Cozaar) 100 MG tablet meloxicam (Mobic) 15 MG tablet omeprazole (PriLOSEC) [address] capsule hydrocortisone 1 % cream --- PMH - Acute thigh pain, right Allergic rhinitis Anxiety Bipolar disorder (HCC) Chest pain Chronic GERD Chronic rhinitis Constipation COVID-19 Crohn's disease (HCC) De Quervain's tenosynovitis, right Dyspnea on exertion Edema of extremities Elevated serum glucose Enlarged thyroid Flank pain Gross hematuria History of nausea Hot flashes Hyperlipidemia Lumbar back pain with radiculopathy affecting right lower extremity Multiple thyroid nodules Nocturia Obese Obesity, morbid (CMS-HCC) NIRMALA (obstructive sleep apnea) Other acute sinusitis Other hyperlipidemia Pain of right upper extremity Pelvic pain Pulmonary arterial hypertension (HCC) Right hip pain Shingles Shortness of breath Small bowel obstruction (HCC) Superficial venous thrombosis of arm, right Trochanteric bursitis, right hip URI, acute Urine discoloration Weight gain Objective ?Quick Links Add Vitals Timeline (Adult) Labs Imaging Results Review Trend Vitals ?? Avoid pulling in long tables of results. Comment on relevant results to support your medical decision making. BP 132/80 (BP Location: Left arm, Patient Position: Sitting, BP Cuff Size: Large adult) Pulse 84 Temp 97.3 F (Temporal) Ht 5' 1.25 Wt 204 lb 6.4 oz SpO2 98% BMI 38.31 kg/m Physical Exam Vitals and nursing note reviewed. Constitutional: Appearance: Normal appearance. HENT: Head: Normocephalic and atraumatic. Nose: Nose normal. Mouth/Throat: Mouth: Mucous membranes are moist. Cardiovascular: Rate and Rhythm: Normal rate and regular rhythm. Heart sounds: Normal heart sounds. Pulmonary: Effort: Pulmonary effort is normal. No respiratory distress. Breath sounds: Normal breath sounds. No stridor. No wheezing, rhonchi or rales. Skin: General: Skin is warm and dry. Findings: Erythema present. Comments: Mild redness noted to right cheek of face. No telangiectasias noted. Neurological: General: No focal deficit present. Mental Status: She is alert and oriented to person, place, and time. Psychiatric: Mood and Affect: Mood normal. Behavior: Behavior normal. Physical Exam Respiratory: Clear to auscultation, no wheezing, rales or rhonchi Skin: Mild redness noted on the right cheek ?Quick Links Full Problem List Allergy Cardiology Chronic Pain GI Hypertension Thyroid Assessment & Plan Encounter to establish care with new provider Encounter today as a new patient today. General health maintenance reviewed visit. Oriented to the practice. Pt made aware of practice hours and how to reach a provider after hours by calling the office phone. Advised to call with any questions or concerns. Pt also made aware that we call with results of any testing, - or + results and to call if he has not heard from us. Also advised that if medication is sent to pharmacy allow up to 3 days for prescription to be refilled. Bipolar 1 disorder (HCC) Stable on Abilify 15mg daily. Does not want to see Psych. Anxiety Stable on Buspar and Abilify. NIRMALA (obstructive sleep apnea) Had the inspire placed. Has had no issues with sleep since the inspire Mixed hyperlipidemia Stable on Atorvastatin Gastroesophageal reflux disease, unspecified whether esophagitis present Stable on Prilosec 10mg Chronic right hip pain Follows with orthopedics. Rash and nonspecific skin eruption Orders: hydrocortisone 1 % cream; Apply topically in the morning and before bedtime. Pulmonary hypertension, unspecified (HCC) Stable, placed on Cardizem. Follows with cardiology Primary hypertension Stable on Losartan Morbid (severe) obesity due to excess calories ([facility]) Work on healthy habits. Assessment & Plan 1. Facial dermatitis: - The facial discomfort could be attributed to dermatitis or rosacea, although the absence of prominent blood vessels makes the latter less likely. - The cheek area appears slightly redder, particularly around the eyes. - She is advised to maintain a log of her symptoms and their triggers. - A daily intake of allergy medication is recommended. Hydrocortisone 1% cream will be prescribed for application as needed, with some refills provided. If the current treatment proves ineffective, alternative options will be considered. 2. Blood pressure management: - Her blood pressure readings are within the normal range today at 132/80 mmHg. - She is advised to continue her current medication regimen and follow up with her production or plant engineer as scheduled. 3. Sleep apnea: - She has undergone Inspire therapy for sleep apnea and is doing well with it. No further action isrequired at this time. 4. Gastroesophageal reflux disease (GERD): - She is currently on medication for GERD and reports doing well with it. No changes to her currenttreatment plan are necessary. 5. Chronic hip pain: - She had a hip replacement in June and reports mixed results. - She is advised to continue follow-up with her orthopedic designer as needed. 6. Anxiety and bipolar disorder: - She is currently on Abilify and BuSpar, which are managing her symptoms well. If she notices thatthe medications are no longer effective, a referral to psychiatry will be considered. - She is advised to continue her current medication regimen. Follow-up: A follow-up visit is scheduled in 3 months for wellness and bipolar. documented in this encounterBarnes-Jewish Saint Peters [id number] Hospital Discharge instructions Patient Education 03/06/2025 11:45:22 Kidney Stones, Vbzj-qp-Kngn Kidney Stones Kidney stones are rock-like masses [...] pee. The stone usually leaves your body through your pee. A doctor may need to take out the stone. What are the causes? Kidney stones may be caused by: Too much calcium in the body. This may be caused by too much parathyroid hormone in the blood. Uric acid crystals in the bladder. The body makes uric acid when you eat certain foods. Narrowing of one or both of the ureters. A kidney blockage that you were born with. Past surgery on the kidney or the ureters. What increases the risk? You are more likely to develop this condition if: You have had a kidney stone in the past. Other people in your family have had kidney stones. You do not drink enough water. You eat a diet that is high in protein, salt (sodium), or sugar. You are very overweight (obese). What are the signs or symptoms? Symptoms of a kidney stone may include: Pain in the side of the belly, right below the ribs. Pain usually spreads to the groin. Needing to pee often or right away. Pain when peeing. Blood in your pee. Feeling like you may vomit (nauseous). Vomiting. Fever and chills. How is this treated? Treatment depends on the size, location, and makeup of the kidney stones. The stones will often pass out of the body when you pee. You may need to: Drink more fluid to help pass the stone. ?In some cases, you may be given fluids through an IV tube at the hospital. Take medicine for pain. Change your diet to help keep kidney stones from coming back. Sometimes, you may need: A procedure to break up kidney stones using a beam of light (laser) or shock waves. Surgery to remove the kidney stones. Follow these instructions at home: Medicines Take xidx-jjz-oeptlfj and prescription medicines only as told by your doctor. Ask your doctor if the medicine prescribed to you requires you to avoid driving or using machinery. Eating and drinking Drink enough fluid to keep your pee pale yellow. ?You may be told to drink at least 8 10 glasses of water each day. This will help you pass the stone. If told by your doctor, change your diet. You may be told to: ?Limit how much salt you eat. ?Eat more fruits and vegetables. ?Limit how much meat, poultry, fish, and eggs you eat. Follow instructions from your doctor about what you may eat and drink. General instructions Collect pee samples as told by your doctor. You may need to collect a pee sample: ?24 hours after a stone comes out. ?8 12 weeks after a stone comes out, and every 6 12 months after that. Strain your pee every time you pee. Use the strainer that your doctor recommends. Do not throw out the stone. Keep it so that it can be tested by your doctor. Keep all follow-up visits. You may need X-rays and ultrasounds to make sure the stone has come out. How is this prevented? To prevent another kidney stone: Drink enough fluid to keep your pee pale yellow. This is the best way to prevent kidney stones. Eat healthy foods. Avoid certain foods as told by your doctor. You may be told to eat less protein. Stay at a healthy weight. Where to find more information National Kidney Foundation (NKF): kidney.org [employer] (UCF): urologyhealth.org Contact a doctor if: You have pain that gets worse or does not get better with medicine. Get help right away if: You have a fever or chills. You get very bad pain. You get new pain in your belly. You faint. You cannot pee. This information is not intended to replace advice given to you by your health care provider. Make sure you discuss any questions you have with your health care provider. Document Revised: 02/03/2023 Document Reviewed: 02/03/2023 Adhysteria Patient Education 2023 [employer]. 03/06/2025 11:45:20 Dietary Guidelines to Help Prevent Kidney Stones [...] about 300 mg of calcium at each meal.Foods that contain 200 500 mg of calcium a serving include: ?8 oz (237 mL) of milk, bqlbwth-vtgpbzauvqxp-hfktc milk, and calcium- fortifiedfruit juice. Calcium-fortified means that calcium has been [...] the table and allow each person to addtheir own salt to taste. Use vegetable protein, such as beans, textured vegetable protein (TVP), or tofu, instead of meat inpasta, casseroles, and soups. Meal planning Eat less salt, if told by your dietitian. To do this: ?Avoid eating processed or pre-made food. ?Avoid eating fast food. Eat less animal protein, including cheese, meat, poultry, or fish, if told by your dietitian. To dothis: ?Limit the number of times you have meat, poultry, fish, or cheese each week. Eat a diet free of meat at least 2 days a week. ?Eat only one serving each day of meat, poultry, fish, or seafood. ?When you prepare animal proteins, cut pieces into small portion sizes. For most meat and fish, oneserving is about the size of the palm [...] ?Spinach (cooked), rhubarb, beets, sweet potatoes, and [place] chard. ?Peanuts. ?Potato chips, malaysian fries, and baked potatoes with skin on. ?Nuts and nut products. ?Chocolate. If you regularly take a diuretic medicine, make sure to eat at least 1 or 2 servings of fruits or vegetables that are high in potassium each day. These include: ?Avocado. ?Banana. ?[place], prune, carrot, or tomato juice. ?Baked potato. [...] magnesium, fish oil, or vitamin B6. Take rhet-myk-owslnwl and prescription medicines only as told by [...] Casseroles. Pizza. Lasagna. Frozen meals. Potato chips. Bruneian fries. The items listed above may not be a complete list of foods and beverages you should limit. Contact a dietitian for more information. What foods should I avoid? Talk to your dietitian about specific foods you should avoid based on the type of kidney stones youhave and your overall health. Fruits Grapefruit. The item listed above may not be a complete list of foods and beverages you should avoid. Contact adietitian for more information. Summary Kidney stones are [...] provider. Document Revised: 09/22/2022 Document Reviewed: 09/22/2022 Adhysteria Patient Education 2023 [employer]. 03/06/2025 11:45:20 Hematuria, Adult Hematuria, Adult Hematuria is blood [...] Follow these instructions at home: Medicines Take dajh-tvl-zzjsbvv and prescription medicines only as told by your health care provider. If you were prescribed an antibiotic medicine, take it as told by your health care provider. Do notstop taking the antibiotic even if you start to feel better. Eating and drinking Drink enough fluid to keep your urine pale yellow. It is recommended that you drink 3 4 quarts (2.83.8 L) a day. If you have been diagnosed with an infection, drinking cranberry juice in addition tolarge amounts of water is recommended. Avoid caffeine, tea, and carbonated beverages. These tend to irritate the bladder. Avoid alcohol because it may irritate the prostate (in males). General instructions If you have been diagnosed [...] changes or any new symptoms. It is up to you to get the results of any tests. Ask your health care provider, or the department that is doing the test, when your results will be ready. Keep all follow-up visits. This is important. Contact a health care provider if: You develop back pain. You have a fever or chills. You have nausea or vomiting. Your symptoms do not improve after 3 days. Your symptoms get worse. Get help right away if: You develop severe vomiting and are unable to take medicine without vomiting. You develop severe [...] or the blood stops without treatment. Take vaox-stp-flsrezo and prescription medicines only as told by your health care provider. Drink enough fluid to keep your urine pale yellow. This information is not intended to replace advice given to you by your health care provider. Make sure you discuss any questions you have with your health care provider. Document Revised: 02/10/2021 Document Reviewed: 02/10/2021 Adhysteria Patient Education 2023 [employer]. Follow Up Care 12/03/2024 15:50:10 With:MISHA Patterson APRN, ALFA Sol, URL Address: When: Unknown Comments:6 latanya DOWELL [facility] 09-11-2025 NotePatient Education Nephrology Dietary Guidelines to Help Prevent [...] for following this plan? Reading food labels ??? Choose foods with no salt added or low-salt labels. Limit your salt (sodium) intake to lessthan 1,500 mg a day. ??? Choose foods with calcium for each meal and snack. Try to eat about 300 mg of calcium at each meal. Foods that contain 200?500 mg of calcium a serving include: ? 8 oz (237 mL) of milk, qcczdkc-fohppzrlspdg-uciid milk, and calcium- fortifiedfruit juice. Calcium-fortified means that calcium has been [...] much calcium is recommended for you. Shopping ??? Buy plenty of fresh fruits and vegetables. Most people do not need to avoid fruits and vegetables, even if these foods contain nutrients that may contribute to kidney stones. ??? When shopping for convenience foods, choose: ? Whole pieces of fruit. ? Pre-made salads with dressing on the side. ? Low-fat fruit and yogurt smoothies. ??? Avoid buying frozen meals or prepared deli foods. These can be high in sodium. ??? Look for foods with live cultures, such as yogurt and kefir. ??? Choose high-fiber grains, such as whole-wheat breads, oat bran, and wheat cereals. Cooking ??? Do not add salt to food when cooking. Place a salt shaker on the table and allow each person toadd their own salt to taste. ??? Use vegetable protein, such as beans, textured vegetable protein (TVP), or tofu, instead of meat in pasta, casseroles, and soups. Meal planning ??? Eat less salt, if told by your dietitian. To do this: ? Avoid eating processed or pre-made food. ? Avoid eating fast food. ??? Eat less animal protein, including cheese, meat, [...] size of the palm of your hand. ??? Eat at least five servings of fresh fruits and vegetables each day. To do this: ? Keep fruits and vegetables on hand for snacks. ? Eat one piece of fruit or a handful of berries with breakfast. ? Have a salad and fruit at lunch. ? Have two kinds of vegetables at dinner. ??? You may be told to limit foods that are high in a substance called oxalate. These include: ? Spinach (cooked), rhubarb, beets, sweet potatoes, and [place] chard. ? Peanuts. ? Potato chips, malaysian fries, and baked potatoes with skin on. ? Nuts and nut products. ? Chocolate. ??? If you regularly take a diuretic medicine, make sure to eat at least 1 or 2 servings of fruits or vegetables that are high in potassium each day. These include: ? Avocado. ? Banana. ? [place], prune, carrot, or tomato juice. ? Baked potato. ? Cabbage. ? Beans and split peas. Lifestyle ??? Drink enough fluid to keep your urine pale yellow. This is the most important thing you can do.Spread your fluid intake throughout the day. ??? If you drink alcohol: ? Limit how [...] oz glass of hard liquor (44 mL). ??? Lose weight if told by your health care provider. Work with your dietitian to find an eating plan and weight loss strategies that work best for you. General information ??? Talk to your health care provider and [...] as magnesium, fish oil, or vitamin B6. ??? Take inap-oxv-jwscrdi and prescription medicines only as told by your health (more content not included)...[facility]07-17-2025 History of Present illness Narrative* Pauline Ryan NP - 01/09/2025 9:53 AM EDTAssociated Problem(s): Chronic right hip pain Cannot see ortho who did surgery anymore as she has new insurance documented in this encounterBarnes-Jewish Saint Peters [id number] History of Present illness Narrative* Pauline Ryan NP - 01/01/2025 1:24 PM EDTAssociated Problem(s): Chronic right hip pain Cannot see ortho who did surgery anymore as she has new insurance * GERARDO MCLAIN - 01/01/2025 1:00 PM EDT Right hip pain since having surgery * Pauline Ryan NP - 01/01/2025 1:00 PM EDT Images from the original note [...] the pain is better than prior to surgery,but feels like different sometimes feels the right [...] nodules Nocturia 01/14/2023 Obese 11/08/2022 Obesity, morbid (CMS-HCC) NIRMALA (obstructive sleep apnea) Other acute sinusitis [...] SURGERY 01/10/2023 r/o isthmus mass, (benign), Dr. Tillman TONSILLECTOMY 1988 TUBAL LIGATION Bilateral 2000 family [...] Morbid (severe) obesity due to excess calories ([facility]) Discussed with patient their BMI (actual, verses recommended). We have also discussed lifestyle modifications: attempts to perform physical activity as chronic conditions allow, also to monitor dietary intake: increasing protein/fruits/veggies and lowering carb intake (unless contraindicated). Limit sodas, juices, and sugary drinks.. Bipolar 1 disorder (HCC) Is currently taking ability Does not want to see psych Bipolar disorder, unspecified ([facility]) Relevant Medications ARIPiprazole (Abilify) 15 MG tablet [...] Medications omeprazole (PriLOSEC) [address] capsule * Pauline Ryan NP - 01/01/2025 6:42 AM EDTAssociated Problem(s): PAH (pulmonary artery hypertension) (HCC) Hx of this in the past and took letaris Recent ECHO 11/17: no evidence of PAH * Pauline Ryan NP - 01/01/2025 6:41 AM EDTAssociated Problem(s): Elevated glucose level On 11/25/24 129 Check A1c: * Pauline Ryan NP - 01/01/2025 6:40 AM EDTAssociated Problem(s): Anxiety Continue current meds: abilify, buspirone * Pauline Ryan NP - 01/01/2025 6:40 AM EDTAssociated Problem(s): Bipolar 1 disorder (HCC) Is currently taking ability Does not want to see psych * Pauline Ryan NP - 01/01/2025 6:40 AM EDTAssociated Problem(s): Hyperlipidemia On statin therapy Check labs yearly and prn dose changes * Pauline Ryan NP - 01/01/2025 6:39 AM EDTAssociated Problem(s): Morbid (severe) obesity due to excess calories ([facility]) Discussed with patient their BMI (actual, verses recommended). We have also discussed lifestyle modifications: attempts to perform physical activity as chronic conditions allow, also to monitor dietary intake: increasing protein/fruits/veggies and lowering carb intake (unless contraindicated). Limit sodas, juices, and sugary drinks.. * Pauline Ryan NP - 01/01/2025 6:39 AM EDTAssociated Problem(s): Primary hypertension Please check blood pressure daily and record DASH diet Limit caffeine Take medication as directed Contact office if chest pain, pressure, dizziness, shortness of breath, swelling legs Recommend slow position changes Current meds: losartan * Pauline Ryan NP - 01/01/2025 6:38 AM EDTAssociated Problem(s): Dizziness and giddiness Saw cardiology, has PVC and PAC's. Was placed on Cardizem, much improved * Pauline Ryan NP - 01/01/2025 6:38 AM EDTAssociated Problem(s): NIRMALA (obstructive sleep apnea) Had Inspire device placement in 08/20 Activated on 09/27/24, feeling more energy, no sleeping during the day documented in this encounterBarnes-Jewish Saint Peters [id number] Instructions* Patient Instructions* Pauline Ryan NP - 01/01/2025 1:00 PM EDT Referral to Ortho in [place] documented in this encounterBarnes-Jewish Saint Peters [id number] NotePatient left a voicemail indicating she had not heard any updates regarding the alternate sleep lab or provider. Spoke with patient, confirmed referral and order were sent, provided phone number for [facility] sleep medicine.[facility] 11-11-2024 NoteUT Cardiology - [facility] Subjective Stacey Sahu is a 49 y.o. year old female patient being seen for follow up echo and surgery clearance per Can Monroe CNP. She is sill not having [...] 10 mg tablet, Gianni (more content not included)...[facility]05-08-2025 Miscellaneous Notes* Telephone Encounter - Abigail Lopez - 10/31/2024 4:03 PM EDT 10/30 Order received Scheduled PAP INSPIRE at [facility] on 01/29/25 Confirmation [facility] Routed Derick Eduardo for PSG order Chat to pre auth OON message received [place] PAP INSPIRE Order and use 09/06/24 Elan Rossi [facility] Notes This is an Inspire Fine-tune Study, not CPAP titration. Please schedule at [facility] Email to Sanjeev documented in this encounterVermont Psychiatric Care HospitalFondu05-08-2025 Telephone encounter Note* Telephone Encounter - Abigail Lopez - 10/31/2024 4:03 PM EDT 10/30 Order received Scheduled PAP INSPIRE at [facility] on 01/29/25 Confirmation [facility] Routed Derick Eduardo for PSG order Chat to pre auth OON message received [place] PAP INSPIRE Order and use 09/06/24 Elan Pereira Notes This is an Inspire Fine-tune Study, not CPAP titration. Please schedule at [facility] Email to Sanjeev Aoi.[facility]05-07-2025 NoteXR CHEST 2 VWS History: Chest Pain Procedure: 2 view PA and Lateral chest radiograph. Comparison: 08/22/2024 Findings: The heart and lungs show no acute findings, and the mediastinum and dionisio are grossly negative . No pneumothorax. Right-sided right-sided nerve stimulator. Impression: No acute pulmonary process. Finalized by Preet Pierre MD on 10/30/2024 3:32 [facility] 10-30-2024 NoteSLEEP CLINIC FOLLOW-UP EVALUATION Date of Evaluation: 10/29/24 Referring Physician: Dr. Marzena Tapia Chief Complaints: NIRMALA on Inspire??? therapy. [...] to a new medication started by her production or plant engineer. That feeling has since faded off. She [...] of getting the Inspire??? fine-tune study at [facility], closer to her home. The study has not been scheduled yet. Will try to get her scheduled at [facility], since we were not sure that [facility] would have the required technology for the study. As you may recall, she was originally referred to us by her lining stitcher for evaluation for Inspire??? therapy. She states [...] went to see Dr. Marzena Tapia at [facility] in 2023. She states that the her [...] Restless Leg Syndrome Sympto (more content not included)...[facility]04-14-2025 NotePatient Education Nephrology ESWL for Kidney Stones, Care [...] these instructions at home: Medicines ??? Take mtbb-wvt-dtjftid and prescription medicines only as told by your health care provider. ??? If you were prescribed antibiotics, take them as told by your health care provider. Do not stopusing the antibiotic even if you start to feel better. ??? Ask your health care provider if the medicine prescribed to you: ? Requires you to avoid driving or using machinery. ? Can cause constipation. You may need to take these actions to prevent or treat constipation: ? Take dbgq-ovb-xopdhaa or prescription medicines. ? Eat foods that are high in fiber, such as beans, whole grains, and fresh fruits and vegetables. ? Limit foods that are high in fat and processed sugars, such as fried or sweet foods. Eating and drinking ??? Follow instructions from your health care provider about what you may eat and drink. You may betold to: ? Reduce how much salt (sodium) you eat or drink. Check ingredients and nutrition facts on packagedfoods and drinks to see how much sodium [...] in a certain position (postural drainage) and tapfirmly (percuss) over your kidney area to help stone fragments pass. Follow instructions as told byyour health care provider. ??? Return to your [...] stones that are found may be sent toa medical lab for examination. The stone may [...] with your health care provider. Document Revised: (more content not included)...[facility]04-10-2025 NoteCardiovascular Medicine [facility] SUBJECTIVE Chief Complaint Patient presents with [...] since stopping it a couple years ago. Fup ; hx PH on Letairis tx [...] Rfl: aspirin 81 mg (more content not included)...[facility] 10-03-2024 NotePatient here for 6 month follow up. Patient [...] dyspnea on exertion and palpitations. Hematologic/Lymphatic: Bruises/bleeds easily.[facility] 09-30-2024 History of Present illness Narrative* Pauline Ryan NP - 09/30/2024 1:46 PM EDTAssociated Problem(s): Bipolar disorder, unspecified ([facility]/HCC) Continue buspar and aripiprazole * Pauline Ryan NP - 09/30/2024 1:46 PM EDTAssociated Problem(s): Anxiety Continue current meds: abilify, buspirone * Pauline Ryan NP - 09/30/2024 1:45 PM EDTAssociated Problem(s): Chronic right hip pain Restarted meloxicam, still with thigh pain, recommend talking w ortho * GERARDO MCLAIN - 09/30/2024 1:20 PM EDT LEFT upper mid thigh pain for about 2 weeks feels like stabbing pain last all night takes otc tylenol which does not help * Pauline Ryan NP - 09/30/2024 1:20 PM EDT Images from the original note [...] of extremities Elevated serum glucose Enlarged thyroid ([facility]/HCC) Flank pain 11/08/2022 Gross hematuria 11/08/2022 History of nausea Hot flashes Hyperlipidemia (CMS/HCC) 09/11/2023 Lumbar back pain with radiculopathy affecting right lower extremity Multiple thyroid nodules ([facility]/HCC) Nocturia 01/14/2023 Obese 11/08/2022 Obesity, morbid ([facility]) NIRMALA (obstructive sleep apnea) Other acute sinusitis [...] SURGERY 01/10/2023 r/o isthmus mass, (benign), Dr. Tillman TONSILLECTOMY 1988 TUBAL LIGATION Bilateral 2000 family [...] Medications omeprazole (PriLOSEC) [address] capsule * Pauline Ryan NP - 09/30/2024 7:08 AM EDTAssociated Problem(s): Hyperlipidemia (CMS/HCC) On statin therapy Check labs yearly and prn dose changes * Pauline Ryan NP - 09/30/2024 7:07 AM EDTAssociated Problem(s): Morbid (severe) obesity due to excess calories (CMS/HCC) Discussed with patient their BMI (actual, verses recommended). We have also discussed lifestyle modifications: attempts to perform physical activity as chronic conditions allow, also to monitor dietary intake: increasing protein/fruits/veggies and lowering carb intake (unless contraindicated). Limit sodas, juices, and sugary drinks.. * Pauline Ryan NP - 09/30/2024 7:07 AM EDTAssociated Problem(s): NIRMALA (obstructive sleep apnea) Had Inspire device placement in 08/20 Activated on 09/27/24 * Pauline Ryan NP - 09/30/2024 7:06 AM EDTAssociated Problem(s): Dizziness and giddiness Last appt was having sxs, ordered labs No acute findings on exam or labs At this point, I would recommend she discuss with Inspire device doctor documented in this encounterBarnes-Jewish Saint Peters [id number] Instructions* Patient Instructions* Pauline Ryan NP - 09/30/2024 1:[address] Talk with dr who placed inspire device about the dizziness to see if this is common or not If worsening in severity or freq of dizziness let me know and I will refer to ortho documented in this encounterBarnes-Jewish Saint Peters [id number] NoteSLEEP CLINIC FOLLOW-UP EVALUATION Date of Evaluation: 09/27/24 Referring Physician: Dr. Marzena Tapia Chief Complaints: NIRMALA on Inspire??? therapy. [...] was originally referred to us by her lining stitcher for evaluation for Inspire??? therapy. She states [...] went to see Dr. Marzena Tapia at [facility] in [facility]23. She states that the her [...] Labs: Previous [place] and [place] labs: NA [place] Sleepiness Scale: How likely are you to [...] difficulty carrying out certain (more content not included)...[facility]03-14-2025 History of Present illness Narrative* Tevin Rossi MD - 09/06/2024 8:15 AM EDT [facility] [address] [facility] [id number] SUBJECTIVE: Patient ID (1975): Stacey Sahu is [...] History: Diagnosis Date Anxiety Arthritis Bipolar disorder ([facility]) Crohn's colitis ([facility]) Depression GERD (gastroesophageal reflux disease) H/O methicillin resistant Staphylococcus aureus infection Hyperlipidemia MRSA (methicillin resistant Staphylococcus aureus) 2022 nasal Obesity Pleurisy Pulmonary hypertension ([facility]) told many years ago Sleep apnea Visual impairment glasses Past Surgical History: Procedure Laterality Date COLECTOMY 2002 COLONOSCOPY several ENDOSCOPIC DIAGNOSTIC DRUG INDUCED SLEEP N/A 05/09/2024 Performed by Tevin Rossi MD at [facility] HYSTERECTOMY 2017 INJECTION BURSA LARGE JOINT Right Hip Right 09/01/2023 Performed by Pj Gannon MD at [facility] INJECTION SPINE TRANSFORAMINAL Right L 5,1 Nroot Right 05/26/2023 Performed by Pj Gannon MD at [facility] INSERTION STIMULATOR NERVE HYPOGLOSSAL - [facility] N/A 08/22/2024 Performed by Tevin Rossi MD at [facility] RELEASE DEQUERVAINS CONTRACTURE Right 10/17/2018 Performed by Dereck Bagley DO at [facility] THYROID SURGERY 12/2022 nodule removed and lymph node biopsy TONSILLECTOMY as a child TOTAL HIP ARTHROPLASTY Right 07/01/2024 [facility] TUBAL LIGATION 2002 ablation done at [...] Resource Strain: Low Risk (08/28/2024) [facility] Overall Financial Resource Strain (CARDIA) Difficulty of Paying Living Expenses: Not very hard Food Insecurity: No Food Insecurity (08/28/2024) [facility] Hunger Vital Sign Worried About Running Out of Food in the Last Year: Never true Ran Out of Food in the Last Year: Never true Transportation Needs: No Transportation Needs (08/28/2024) [facility] PRAPARE - Transportation Lack of Transportation (Medical): No Lack of Transportation (Non-Medical): No Physical Activity: Inactive (08/28/2024) [facility] Exercise Vital Sign Days of Exercise per Week: 0 days Minutes of Exercise per Session: 0 min Stress: No Stress Concern Present (08/28/2024) [facility] [place] of Occupational Health - Occupational Stress Questionnaire Feeling of Stress : Only a little Social Connections: Socially Isolated (08/28/2024) [facility] Social Connection and Isolation Panel [NHANES] Frequency of Communication with Friends and Family: Once a week Frequency of Social Gatherings with Friends and Family: Once a week Attends Ep[employer] Services: Never Active Member of Clubs or Organizations: No Attends Club or Organization Meetings: Never Marital Status: Interpersonal Safety: Unknown (08/17/2023) [facility] Safety & Environment Fear of Current or Ex-Partner: Not on file Emotionally Abused: Not on file Physically Abused: Not on file Sexually Abused: Not on file Physically or Sexually Abused: Not on file Housing Instability: Low Risk (08/28/2024) [facility] Housing Stability Vital Sign Unable to [...] Scribed for and in the presence of Tevin Rossi MD by Varinder Jose (scribe). Varinder Jose 09/06/2024 8:40 AM Provider Statement: I Tevin Rossi MD personally performed the services described in the documentation as described by the above named scribe in my presence. It is both accurate and complete at the time of final signature. Dr. Tevin Rossi 09/06/2024 8:17 PM Please note that parts of this chart were generated using voice recognition M*Modal dictation software. Although every effort was made to ensure the accuracy of this automated clinical administrator, some errors in clinical administrator may have occurred. Varinder Jose 09/06/24 0748 Jordana Kidd CNA 09/06/24 0826 Varinder Jose 09/06/24 0840 documented in this encounterPremier Health Atrium Medical CenterGetMyRx [id number] Instructions* Patient Instructions* Varinder Jose - 09/06/2024 8:15 AM EDT Images from the original note were not included. Based on today's evaluation, I recommend: No further tests or treatment at this time. I recommend that you follow up with me: as needed. I recommend that you sign up for MY CHART so that I can send you test results and communicate otherinformation pertaining to the management of your health care. The instructions to gain access to [employer] are at the bottom of this summary. If you are not signed up for access to MY CHART and have not received notification of ANY test result within 7 days, please call [phone] to leave a request for your results. During normal business hours, Dr. Rossi and the other health care providers are treating patients in the office or performing surgery, so this will require a follow up telephone call from a health care provider. If youhave not been contacted about your test results, do not assume that your test results are normal. If you need to schedule a test such as a CT scan, Ultrasound, MRI or PET scan, please call [facility] Central Scheduling at [phone]. If you need to be scheduled for surgery, please call Shaila Savage, Surgery Coordinator at [phone], or our main number [phone] if you have not received a return [...] days before planned surgery: stop taking Non-Steroidal Anti- Inflammatory Drugs (NSAIDs) and certain herbal and weight loss products. (Note: the medications listed are selective and do not include all medications that affect bleeding.) You may need to stop taking aspirin one week (7 days) before planned surgery Please read below Aspirin (and medications that contain aspirin): Many non-prescription (wdvf-bdl-ugadpzz or OTC) medications contain aspirin. If you are unsure whether a medication you take has aspirin, please ask your pharmacist or your surgeon's office. You must ask your surgical team if they want you to continuetaking, or stop taking aspirin before your procedure. Medications containing aspirin that should be stopped 7 days before surgery: Saritha-Cannon Anacin Aspirin Fiorinal Ascriptin Pamela Bufferin Lortab [...] L-carnosine Licorice Kava kava Milk thistle Multivitamin Dana-3 Resveratrol Skullcap Jenny's wort Vitamin E Adipex (phentermine) Jacob (orlistat) Hydroxycut Garcinia Cambogia Raspberry Ketones [id number] should be stopped 14 days before surgery You will receive specific instructions regarding your insulin and anti-coagulant/anti-platelet medications (if applicable). documented in this encounterSelect [facility] History of Present illness Narrative* Pauline Ryan NP - 08/28/2024 1:53 PM ESTAssociated Problem(s): Anxiety Buspar FLOR 7=6 * GERARDO MCLAIN - 08/28/2024 1:20 PM EST Pt states she is doing good after having her right hip surgery and inspire done. Chest is itchy and burning for about a week. Pt still has steri strips on. * Pauline Ryan NP - 08/28/2024 1:20 PM EST Images from the original note were [...] light-headedness. Negative for dizziness, tremors, seizures, syncope andheadaches. Psychiatric/Behavioral: Negative for behavioral problems, self-injury and [...] of extremities Elevated serum glucose Enlarged thyroid (CMS/[facility]) Flank pain 11/08/2022 Gross hematuria 11/08/2022 History [...] SURGERY 01/10/2023 r/o isthmus mass, (benign), Dr. Tillman TONSILLECTOMY 1988 TUBAL LIGATION Bilateral 2000 family [...] both small and large intestine without complications (CMS/[facility]) Continue to follow with GI Gastro-esophageal reflux [...] want to continue with them Current meds: abilify, buspar PHQ 9=9 FLOR 7=6 Relevant Medications ARIPiprazole [...] Medications omeprazole (PriLOSEC) [address] capsule * Pauline Ryan NP - 08/28/2024 7:09 AM ESTAssociated Problem(s): Bipolar disorder, unspecified (CMS/HCC) Used to see psych, does not want to continue with them Current meds: raysa gant PHQ 9=9 FLOR 7=6 * Pauline Ryan NP - 08/28/2024 7:08 AM ESTAssociated Problem(s): Morbid (severe) obesity due to excess calories (CMS/HCC) Discussed with patient their BMI (actual, verses recommended). We have also discussed lifestyle modifications: attempts to perform physical activity as chronic conditions allow, also to monitor dietary intake: increasing protein/fruits/veggies and lowering carb intake (unless contraindicated). Limit sodas, juices, and sugary drinks.. * Pauline Ryan NP - 08/28/2024 7:07 AM ESTAssociated Problem(s): S/P total right hip arthroplasty 06/24/24 Normal post op discomfort Did at home PT * Pauline Ryan NP - 08/28/2024 7:07 AM ESTAssociated Problem(s): Gastro- esophageal reflux disease without esophagitis Recommendations: freq small meals, nothing to eat or drink at least 2 hours prior to bed, limit caffeine, alcohol, as well as spicy foods Meds to limit or avoid if possible: NSAIDS Elevate HOB if possible Current med: omeprazole * Pauline Rayn NP - 08/28/2024 7:07 AM ESTAssociated Problem(s): Crohn's disease of both small and large intestine without complications (CMS/HCC) Continue to follow with GI * Pauline Ryan NP - 08/28/2024 7:06 AM ESTAssociated Problem(s): PAH (pulmonary artery hypertension) (CMS/HCC) Saw cardiology in the past, was on letaris, no longer taking it or fu with cardiology Non compliant with PAP, looking into inspire No chest pain/pressure/dyspnea * Pauline Ryan NP - 08/28/2024 7:06 AM ESTAssociated Problem(s): NIRMALA (obstructive sleep apnea) Does not tolerate PAP use Had inspire placement recenlty documented in this [facility]03-05-2025 Instructions* Patient Instructions* Pauline Ryan NP - 08/28/2024 1:20 PM EST No medication dose changes Get labs checked-they are fasting, but make sure you drink plenty of water before going documented in this [facility]02-04-2025 NoteHNO ID: [id number] Author: LOIS MCKEON MD Service: ? Author [...] month before she seeks an appointment. Lois Mckeon, [facility]02-04-2025 History of Present illness Narrative* Lois Mckeon MD - 07/30/2024 3:01 PM EST Stacey Sahu 1 month postop right total [...] appointment. Lois Mckeon MD documented in [facility]Mer[facility] History of Present illness Narrative* Raymundo Ontiveros CT - 07/30/2024 1:30 PM EST Radiology Service Progress Note PATIENT NAME: Stacey Sahu DATE OF SERVICE: July 30, 2024 TIME: 1:34 PM PATIENT IDENTITY VERIFICATION COMPLETED USING TWO (2) IDENTIFIERS: Name and Date of confirmedby patient verbally. FALL SCREENING: Has the patient had 2 falls in the last year or 1 fall with injury or currently using an Ambulatory Assistive Device (Walker, Cane, Wheelchair, Crutches, etc.)? No PATIENT GENDER DATA: Assigned female at . status: : No status:NO. PATIENT RELEVANT IMPLANT DATA REVIEWED: Not Applicable PATIENT PRESENTS WITH AN IMPLANTABLE OR ATTACHED MACHINE SHOP SPECIALIST: No RADIOLOGY DEPARTMENT: General X-ray: Exam(s) Completed: Pelvis X-Ray: Pelvis with Hip Right and Wt.Bearing PERIPHERAL IV DATA: Not applicable SIGNED BY: MAMTA Carbajal July 30, 2024 1:34 PM documented in this encounterMercy Health St. [facility]02-04-2025 NoteHNO ID: [id number] Author: RAYMUNDO ONTIVEROS CT Service: Radiology Author Type: Technologist [...] PATIENT PRESENTS WITH AN IMPLANTABLE OR ATTACHED MACHINE SHOP SPECIALIST: No RADIOLOGY DEPARTMENT: General X-ray: Exam(s) Completed: Pelvis X-Ray: Pelvis with Hip Right and Wt. Bearing PERIPHERAL IV DATA: Not applicable SIGNED BY: MAMTA Carbajal July 30, 2024 1:34 [facility]02-03-2025 Miscellaneous Notes * Telephone Encounter - Shaila Savage - 07/29/2024 11:53 AM EST Pre-Cert - Vivian Almanzar - Called and told me Stacey's surgery is not covered under her new [employer] health insurance. Vivian said she would call Stacey and give her the update to see what she wants to do. documented in this encounterSelect [facility]25 Telephone encounter Note* Telephone Encounter - Shaila Savage - 07/29/2024 11:53 AM EST Pre-Cert - Vivian Almanzar - Called and told me Stacey's surgery is not covered under her new [employer] health insurance. Vivian said she would call Stacey and give her the update to see what she wants to do. [facility] [employer] [id number] Miscellaneous Notes* Telephone Encounter - Alexjose Janette - 07/26/2024 12:59 PM ESTSummary: 08/01/24 [facility] Parent / Self notified of surgery time, 11:30 told them to arrive two hours prior. 09:30 emergency room entrance. Thank you! Shaila - [phone] documented in this encounterOhioHealth [facility] City [facility] Hospital I Gotchu [id number] Telephone encounter Note* Telephone Encounter - Alexjose Janette - 07/26/2024 12:59 PM EST Summary: 08/01/24 [facility] Parent / Self notified of surgery time, 11:30 told them to arrive two hours prior. 09:30 emergency room entrance. Thank you! Alexjose - [phone] [facility] [employer] [id number] History and physical note* ADELA Martinez - 07/23/2024 2:15 PM EST PRE-ADMISSION TESTING HISTORY AND PHYSICAL EXAM DATE: 07/23/24 PCP: ADELA SMITH HISTORY OF PRESENT ILLNESS: Stacey Sahu, a 49 y.o. White or female, presents to [facility] for a pre- surgical H&P. The patient has been diagnosed with [...] History: Diagnosis Date Anxiety Arthritis Bipolar disorder ([facility]) Crohn's colitis ([facility]) Depression GERD (gastroesophageal reflux disease) H/O methicillin resistant Staphylococcus aureus infection Hyperlipidemia MRSA (methicillin resistant Staphylococcus aureus) 2022 nasal Obesity Pleurisy Pulmonary hypertension ([facility]) told many years ago Sleep apnea Visual impairment glasses PAST SURGICAL HISTORY: Past Surgical History: Procedure Laterality Date COLECTOMY 2002 COLONOSCOPY several ENDOSCOPIC DIAGNOSTIC DRUG INDUCED SLEEP N/A 05/09/2024 Performed by Tevin Rossi MD at [facility] HYSTERECTOMY 2017 INJECTION BURSA LARGE JOINT Right Hip Right 09/01/2023 Performed by Pj Gannon MD at [facility] IN[facility] SPINE TRANSFORAMINAL Right L 5,1 Nroot Right 05/26/2023 Performed by Pj Gannon MD at [facility] RELEASE DEQUERVAINS CONTRACTURE Right 10/17/2018 Performed by Dereck Bagley DO at [facility] THYROID SURGERY 12/2022 nodule removed and lymph node biopsy TONSILLECTOMY as a child TOTAL HIP ARTHROPLASTY Right 07/01/2024 [facility] TUBAL LIGATION 2002 ablation done at [...] (10 mg total) by mouth nightly Indications: highcholesterol., Disp: , Rfl: busPIRone (BUSPAR) 15 mg [...] place, and time. PERTINENT TESTING AVAILABLE IN [facility] (WITHIN THE PAST 2 YEARS): EK10/03/2018 [...] the most recent lab values available in [facility] at the time the H&P was signed. ASSESSMENT / DIAGNOSIS: Obstructive sleep apnea [G47.33] PLAN: Stacey Sahu is scheduled for Insertion Stimulator Nerve Hypoglossal - Inspire on 08/01/[address] Rossi. ADELA Martinez 07/23/24 1536 [employer] Work Phone: 1(154) 919-134501-28-2025 History and physical note* ADELA Martinez - 07/23/2024 2:15 PM EST PRE-ADMISSION TESTING HISTORY AND PHYSICAL EXAM DATE: 07/23/24 PCP: PAULINE RYAN, LAY-DIRECTOR OF PERSONNEL HISTORY OF PRESENT ILLNESS: Stacey Sahu, a 49 y.o. White or female, presents to [facility] for a pre- surgical H&P. The patient has been diagnosed with [...] History: Diagnosis Date Anxiety Arthritis Bipolar disorder ([facility]) Crohn's colitis ([facility]) Depression GERD (gastroesophageal reflux disease) H/O methicillin resistant Staphylococcus aureus infection Hyperlipidemia MRSA (methicillin resistant Staphylococcus aureus) 2022 nasal Obesity Pleurisy Pulmonary hypertension ([facility]) told many years ago Sleep apnea Visual impairment glasses PAST SURGICAL HISTORY: Past Surgical History: Procedure Laterality Date COLECTOMY 2002 COLONOSCOPY several ENDOSCOPIC DIAGNOSTIC DRUG INDUCED SLEEP N/A 05/09/2024 Performed by eTvin Rossi MD at [facility] HYSTERECTOMY 2017 INJECTION BURSA LARGE JOINT Right Hip Right 09/01/2023 Performed by Pj Gannon MD at [facility] IN[facility] SPINE TRANSFORAMINAL Right L 5,1 Nroot Right 05/26/2023 Performed by Pj Gannon MD at [facility] RELEASE DEQUERVAINS CONTRACTURE Right 10/17/2018 Performed by Dereck Bagley DO at [facility] THYROID SURGERY 12/2022 nodule removed and lymph node biopsy TONSILLECTOMY as a child TOTAL HIP ARTHROPLASTY Right 07/01/2024 [facility] TUBAL LIGATION 2002 ablation done at [...] (10 mg total) by mouth nightly Indications: highcholesterol., Disp: , Rfl: busPIRone (BUSPAR) 15 mg [...] place, and time. PERTINENT TESTING AVAILABLE IN [facility] (WITHIN THE PAST 2 YEARS): EK10/03/2018 [...] the most recent lab values available in [facility] at the time the H&P was signed. ASSESSMENT / DIAGNOSIS: Obstructive sleep apnea [G47.33] PLAN: Stacey Sahu is scheduled for Insertion Stimulator Nerve Hypoglossal - Inspire on 08/01/[address] Rossi. ADELA Martinez 07/23/24 1536 documented in this encounterVermont Psychiatric Care HospitalAragon Surgical [id number] Instructions* Patient Instructions* Rashida Mcneil RN - 07/23/2024 2:15 PM EST Your surgery/procedure is scheduled at [facility] on 08/01/24 at to call with arrival time [facility] Address: [address] [place] [address], [address] [place] [address] in the Emergency Center Parking lot. Report to the dental front office assistant in the Emergency/Surgery Registration lobby of the hospital. Notify your SURGEON if you develop any illness such as a cold, cough, fever, sore throat, vomiting or are hospitalized between now and your surgery. Please call Pre-Admission Clinic at [phone] if you have any questions prior to surgery. For questions the morning of surgery, call the Pre-op Department at [phone]. Medication Instructions (Do not stop your medications [...] specifically instructed by your surgeon to hold. STOPtaking all herbal products/teas one week prior to [...] would like to schedule therapy at a [facility] facility, please call [phone] ([phone]). Do not use lotions, creams, powders, perfume, make up, cologne or after-shaves day of surgery. Remove ALL jewelry including wedding rings, body piercings, hair extensions that contain metal, nail vincentian, make-up, and contact lens. You may brush your teeth the morning of surgery, but do not swallow the water. Wear your dentures and partial plates to the hospital (no adhesive). Shower the night the before. If applicable, use the CHG (chlorhexidine gluconate) soap or wipes. Please be advised, [employer] has transitioned to a cashless payment system. What should I bring to the hospital? If you received a green plastic bracelet, bring it with you the day of surgery and your nurse will put it on you. Eyeglass or contact lens case If you will be spending the night, please bring personal care items and leave them in the car untilyou are taken to your room after surgery. [...] following some types of surgeries involving the eyes,ears, sinuses and throat. Always follow your doctor's [...] AND RESPONSIBILITIES As a patient at [facility], you have the right to: Receive medical care and be informed of who is taking care of you Be treated with dignity and respect Have a family member/sales representative door to door of choice and your physician notified of your admission Receive information and actively participate in decisions about your care and treatment Refuse care, treatment and services Decide who may provide your support and speak for you Access yarsanism and spiritual services Participate in ethical issues [...] hospital charges and payment methods Patient/patient sales representative door to door responsibilities are to: Provide information about health [...] Germs live on your skin. This special soapwill help lower the amount of germs so [...] skin to hard. Be sure to wash thearea of your surgery very well. If showering, [...] surgery in clean clothes. documented in this encounter[facility]25 NoteHNO ID: [id number] Author: NAZ HOWE MD Service: Anesthesiology Author Type: Anesthesiologist [...] for Block: primary surgical anesthetic Staffing Anesthesiologist: Naz Howe MD Resident: Tevin Verde MD Performed by: resident Preparation Sterility [...] 1.7 mL - 07/01/2024 8:03:00 AM SIGNATURE: Naz Howe MD PATIENT NAME: Stacey Sahu DATE: July 01, 2024 TIME: 8:07 AM CSN: [id number] History and physical note* Jose Tejeda APRN.CNP - 06/05/2024 10:30 AM EST Images from the original note were not included. [facility] HISTORY AND PHYSICAL EXAMINATION SERVICE DATE: 06/05/2024 SERVICE TIME: 9:56 AM PRIMARY CARE PHYSICIAN: Pauline Ryan CNP, DIRECTOR OF PERSONNEL REASON FOR VISIT: Stacey Sahu is a 48 year old female who is scheduled for Right - ARTHROPLASTY REPLACE JOINT TOTALHIP at the request of Dr. Lois Mckeon [...] STOP-Bang Score: 0 (Non-compliant with CPAP ) [id number] Score: Age: <65 Sex: female [id number] Score: ARISCAT Score: Age: <=50 Preoperative SpO2: [...] x 4 Crohn's disease without complication (HCC) [id number] Pulmonary Htn (Hcc) Obese Nirmala (Obstructive Sleep [...] fevers. Neuro: No history of TIA's, stroke, PAINTER AND GRADER CORK tumor, impaired sensorium, hemiplegia, paraplegia or quadraplegia. [...] or clotting disorder. Pt is not taking anti- coagulation or platelet medications. No history of hematological [...] instructions and voices comprehension and compliance. SIGNATURE: Jose Tejeda APRN.CNP PATIENT NAME: Stacey Sahu DATE: 06/05/2024 TIME: 9:[address] [facility]12-11-2024 History and physical note* Jose Tejeda APRN.CNP - 06/05/2024 10:30 AM EST Images from the original note were not included. [facility] HISTORY AND PHYSICAL EXAMINATION SERVICE DATE: 06/05/2024 SERVICE TIME: 9:56 AM PRIMARY CARE PHYSICIAN: Pauline Ryan, NIURKA, DIRECTOR OF PERSONNEL REASON FOR VISIT: Stacey Sahu is a 48 year old female who is scheduled for Right - ARTHROPLASTY REPLACE JOINT TOTALHIP at the request of Dr. Lois Mckeon [...] STOP-Bang Score: 0 (Non-compliant with CPAP ) [id number] Score: Age: <65 Sex: female [id number] Score: ARISCAT Score: Age: <=50 Preoperative SpO2: [...] x 4 Crohn's disease without complication (HCC) [id number] Pulmonary Htn (Hcc) Obese Nirmala (Obstructive Sleep [...] fevers. Neuro: No history of TIA's, stroke, PAINTER AND GRADER CORK tumor, impaired sensorium, hemiplegia, paraplegia or quadraplegia. [...] or clotting disorder. Pt is not taking anti- coagulation or platelet medications. No history of hematological [...] instructions and voices comprehension and compliance. SIGNATURE: Jose Tejeda APRN.CNP PATIENT NAME: Stacey Sahu DATE: 06/05/2024 TIME: 9:56 AM documented in this encounterMer[facility]12-[facility]24 Instructions* Patient Instructions* Jose Tejeda APRN.CNP - 06/04/2024 8:24 AM EST Images from the original note were not included. [facility] PATIENT PREOPERATIVE INSTRUCTIONS Lois Mckeon MD has scheduled you for your procedure at this surgery center: [facility]: [phone] [address] [place] [address]. On your scheduled day of surgery, please [...] office. If you are currently using a iann-vrj-cbkg injectable or oral medication for diabetes or [...] Procedures: - YOU MUST HAVE A RESPONSIBLE COOKING CHEF TAKE YOU HOME. A OBSTETRICS SCRUB NURSE OR SALVAGE CUTTER CANNOT BE MADE A RESPONSIBLE COOKING CHEF. - We recommend that a responsible person stays with you overnight to take care of you. - You cannot stay in a hotel alone after outpatient surgery. You will not be permitted to have yoursurgery, if you do not have someone to [...] Advance Directive, please fax a copy to [phone] or email to for it to be added to your chart. If you do not have an Advance Directive, you can find the appropriate form and more information at [email or web address]. We recommend that youcomplete the Advance Directive form found on the website and bring it with you the day of your surgery. It can be witnessed and scanned into your chart that day. documented in this encounterMer[facility]12-04-2024 History of Present illness Narrative* Pauline Ryan, NETO - 05/29/2024 2:20 PM EST Images from the original note were not included. Stacey Sahu is a 48 y.o. female presents with chief complaint of Bipolar HPI: Since last visit has seen ENT and ortho Hip; right hip replacement scheduled for 07/01/24 through [facility]. No changes in hip sxs, [...] right Allergic rhinitis Anxiety 07/25/2023 Bipolar disorder ([facility]) Chest pain 02/09/2012 Chronic GERD Chronic rhinitis 2023 Constipation COVID-19 01/2022 Crohn's disease ([facility]) De Quervain's tenosynovitis, right Dyspnea on exertion Edema of extremities Elevated serum glucose Enlarged thyroid ([facility]) Flank pain 11/08/2022 Gross hematuria 11/08/2022 History of nausea Hot flashes Hyperlipidemia ([facility]) 09/11/2023 Lumbar back pain with radiculopathy affecting right lower extremity Multiple thyroid nodules ([facility]) Nocturia 01/14/2023 Obese 11/08/2022 Obesity, morbid ([facility]) NIRMALA (obstructive sleep apnea) Other acute sinusitis [...] SURGERY 01/10/2023 r/o isthmus mass, (benign), Dr. Tillman TONSILLECTOMY 1988 TUBAL LIGATION Bilateral 2000 family [...] specialist for this PAH (pulmonary artery hypertension) ([facility]) Saw cardiology in the past, was on [...] Morbid (severe) obesity due to excess calories ([facility]) Discussed with patient their BMI (actual, verses recommended). We have also discussed lifestyle modifications: attempts to perform physical activity as chronic conditions allow, also to monitor dietary intake: increasing protein/fruits/veggies and lowering carb intake (unless contraindicated). Limit sodas, juices, and sugary drinks.. Bipolar 1 disorder ([facility]) Is currently taking ability Does not want to see psych * Pauline Ryan NP - 05/29/2024 7:36 AM ESTAssociated Problem(s): Anxiety Does not want to see psych Meds are controlling symptoms Current meds: buspar prn and abilify * Pauline Ryan NP - 05/29/2024 7:36 AM ESTAssociated Problem(s): Bipolar 1 disorder ([facility]) Is currently taking ability Does not want to see psych * Pauline Ryan NP - 05/29/2024 7:35 AM ESTAssociated Problem(s): Morbid (severe) obesity due to excess calories (CMS/HCC) Discussed with patient their BMI (actual, verses recommended). We have also discussed lifestyle modifications: attempts to perform physical activity as chronic conditions allow, also to monitor dietary intake: increasing protein/fruits/veggies and lowering carb intake (unless contraindicated). Limit sodas, juices, and sugary drinks.. * Pauline Ryan NP - 05/29/2024 7:35 AM ESTAssociated Problem(s): Chronic right hip pain Has been with ortho Plan for hip replacement after first of the year * Pauline Ryan NP - 05/29/2024 7:35 AM ESTAssociated Problem(s): PAH (pulmonary artery hypertension) (CMS/HCC) Saw cardiology in the past, was on letaris, no longer taking it or fu with cardiology Non compliant with PAP, looking into inspire No chest pain/pressure/dyspnea * Pauline Ryan NP - 05/29/2024 7:34 AM ESTAssociated Problem(s): NIRMALA (obstructive sleep apnea) Does not tolerate PAP use Is pursing surgical intervention for device insertion Continue with specialist for this documented in this encounterBarnes-Jewish [facility] [id number] Instructions* Patient Instructions* Pauline Ryan NP - 05/29/2024 2:20 PM EST No med dose changes documented in this encounterBarnes-Jewish Saint Peters [id number] History of Present illness Narrative* Tevin Rossi MD - 05/17/2024 8:15 AM EST [facility] [address] [facility] [id number] SUBJECTIVE: Patient ID (1975): Stacey Sahu is [...] History: Diagnosis Date Anxiety Arthritis Bipolar disorder (CMS-HCC) Chronic pain disorder Crohn's colitis ([facility]) Depression GERD (gastroesophageal reflux disease) H/O methicillin resistant Staphylococcus aureus infection Hyperlipidemia Joint pain Obesity Pleurisy Pulmonary hypertension (CMS-HCC) Pulmonary hypertension (CMS-HCC) Sleep apnea cpap Past Surgical History: Procedure Laterality Date COLON SURGERY part of bowel removed d/t crohns dx COLONOSCOPY ENDOSCOPIC DIAGNOSTIC DRUG INDUCED SLEEP N/A 05/09/2024 Performed by Tevin Rossi MD at [facility] HYSTERECTOMY 2017 INJECTION BURSA LARGE JOINT Right Hip Right 09/01/2023 Performed by Pj Gannon MD at [facility] INJECTION SPINE TRANSFORAMINAL Right L 5,1 Nroot Right 05/26/2023 Performed by Pj Gannon MD at [facility] LYMPH NODE BIOPSY RELEASE DEQUERVAINS CONTRACTURE Right 10/17/2018 Performed by Dereck Bagley DO at [facility] THYROIDECTOMY, PARTIAL 12/2022 nodule TONSILLECTOMY as a [...] Resource Strain: Patient Declined (06/14/2023) Received from [facility] hospital Overall Financial Resource Strain (CARDIA) Difficulty of Paying Living Expenses: Patient declined Food Insecurity: No Food Insecurity (05/06/2024) Hunger Screening Food Insecurity - Worry: Never True Food Insecurity - Inability: Never True Transportation Needs: No Transportation Needs (06/14/2023) Received from Critical access hospital PRAPARE - Transportation Lack of Transportation (Medical): No Lack of Transportation (Non-Medical): No Physical Activity: Unknown (06/14/2023) Received from Critical [facility] hospital Exercise Vital Sign Days of Exercise per Week: 2 days Minutes of Exercise per Session: Patient declined Stress: Patient Declined (06/14/2023) Received from Critical access hospital [place] [employer] - Occupational Stress Questionnaire Feeling of Stress : Patient declined Social Connections: Unknown (06/14/2023) Received from Critical access hospital Social Connection and Isolation Panel [NHANES] Frequency of Communication with Friends and Family: Patient declined Frequency of Social Gatherings with Friends and Family: Patient declined Attends Episcopal Services: Patient declined Active Member of Clubs or Organizations: Patient declined Attends Club or Organization Meetings: Patient declined Marital Status: Interpersonal Safety: Unknown (08/17/2023) Received from [facility] [place] Safety & Environment Fear of Current or Ex-Partner: Not on file Emotionally Abused: Not on file Physically Abused: Not on file Sexually Abused: Not on file Physically or Sexually Abused: Not on file Housing Instability: Unknown (06/14/2023) [facility] Housing Stability Vital Sign Unable to [...] discharge, ear pain, postnasal drip, rhinorrhea, sinus pressure,sinus pain, sore throat and trouble swallowing. Respiratory: [...] scheduled for 08/01/2024. I specifically counseled that thepatient should discontinue her Mobic 10 days prior [...] swallowing, impaired or decreased tongue motion, tongue n umbness, decreased taste, pneumothorax (collapsed lung), implant failure, anesthesia complications,need for further surgery including the need to remove the entire implant Scribe Statement: Scribed for and in the presence of Tevin Rossi MD by Varinder Jose (scribe). Varinder Jose 05/17/2024 8:18 AM Provider Statement: I Tevin Rossi MD personally performed the services described in the documentation as described by the above named scribe in my presence. It is both accurate and complete at the time of final signature. Dr. Tevin Rossi 05/17/2024 9:20 AM Please note that parts of this chart were generated using voice recognition M*Modal dictation software. Although every effort was made to ensure the accuracy of this automated clinical administrator, some errors in clinical administrator may have occurred. Varinder Jose 05/17/24 0744 Varinder Minniear 05/17/24 0819 Varinder Minniear 05/17/24 0820 documented in this encounterSelect [facility]11-22-2024 Instructions* Patient Instructions* Tevin Rossi MD - 05/17/2024 8:15 AM EST Based on today's evaluation, I recommend: The following surgical procedure: Inspire Implantation Stacey Sahu was counseled about the surgical procedure for Inspire implant placement and its inherent risks which include, but are not limited to; Infection, bleeding, scar, numbness, lower lip weakness, changes in speech articulation and swallowing, impaired or decreased tongue motion, tongue n umbness, decreased taste, anesthesia complications, need for further surgery I recommend that you follow up with me: 2 week(s) after surgery. I recommend that you sign up for MY CHART so that I can send you test results and communicate otherinformation pertaining to the management of your health care. The instructions to gain access to [employer] are at the bottom of this summary. If you are not signed up for access to MY CHART and have not received notification of ANY test result within 7 days, please call [phone] to leave a request for your results. During normal business hours, Dr. Rossi and the other health care providers are treating patients in the office or performing surgery, so this will require a follow up telephone call from a health care provider. If youhave not been contacted about your test results, do not assume that your test results are normal. If you need to schedule a test such as a CT scan, Ultrasound, MRI or PET scan, please call [facility] Scheduling at [phone]. If you need to be scheduled for surgery, please call Shaila Savage, Surgery Coordinator at [phone], or our main number [phone] if you have not received a return [...] days before planned surgery: stop taking Non-Steroidal Anti- Inflammatory Drugs (NSAIDs) and certain herbal and weight loss products. (Note: the medications listed are selective and do not include all medications that affect bleeding.) You may need to stop taking aspirin one week (7 days) before planned surgery Please read below Aspirin (and medications that contain aspirin): Many non-prescription (xqpa-tsn-djcioaw or OTC) medications contain aspirin. If you are unsure whether a medication you take has aspirin, please ask your pharmacist or your surgeon's office. You must ask your surgical team if they want you to continuetaking, or stop taking aspirin before your procedure. Medications containing aspirin that should be stopped 7 days before surgery: Saritha-Cannon Anacin Aspirin Fiorinal Ascriptin Pamela Bufferin Lortab [...] L-carnosine Licorice Kava kava Milk thistle Multivitamin Dana-3 Resveratrol Skullcap Jenny's wort Vitamin E Adipex (phentermine) Jacob (orlistat) Hydroxycut Garcinia Cambogia Raspberry Ketones [id number] should be stopped 14 days before surgery You will receive specific instructions regarding your insulin and anti-coagulant/anti-platelet medications (if applicable). documented in this encounterSelect Medical [facility]11-14-2024 Telephone encounter Note* Telephone Encounter - Carmen Valladares - 05/09/2024 12:57 PM EST PSS calling from Dr Rossi's office to ask how soon the PT could be scheduled for surgery for inspire implant, nerve stimulator. General for 3 hours. Please advise [phone] ask to speak with Alejandra or Kashmir. [facility]11-14-2024 Miscellaneous Notes* Telephone Encounter - Carmen Valladares - 05/09/2024 12:57 PM EST PSS calling from Dr Rossi's office to ask how soon the PT could be scheduled for surgery for inspire implant, nerve stimulator. General for 3 hours. Please advise [phone] ask to speak with Alejandra or Kashmir. documented in this encounterMer[facility] Health [facility]11-14-2024 Miscellaneous Notes* Telephone Encounter - Tevin Rossi MD - 05/09/2024 10:12 AM EST Surgery Scheduling Request 05/09/24 Patient: Stacey Sahu : 1975 Surgical Procedure(s): Inspire Anesthesia: General Surgery Time: 3 hours Facility Preference: No preference Post Op Destination: Outpatient Preop Anesthesia Appointment?: Yes Medical Clearance Required?: No Nerve Monitor? Yes Special Equipment? Inspire When should patient follow up after surgery? One week Additional Comments: Dwayne * Telephone Encounter - Shaila Savage - 05/09/2024 10:12 AM EST 05-09, Called patient to schedule InspStacey tolbert mentioned she's having hip replacement Jul 01. I called her Ortho Surgeon at [facility], Dr Iwona Mckeon to ask about timeframe for being safe to have this surgery after her hip replacement recovery. Dr Iwona Mckeon nurse said she would call me back. documented in this encounterSelect Medical [facility]11-14-2024 Telephone encounter Note* Telephone Encounter - Tevin Rossi MD - 05/09/2024 10:12 AM EST Surgery Scheduling Request 05/09/24 Patient: Stacey Sahu : 1975 Surgical Procedure(s): Inspire Anesthesia: General Surgery Time: 3 hours Facility Preference: No preference Post Op Destination: Outpatient Preop Anesthesia Appointment?: Yes Medical Clearance Required?: No Nerve Monitor? Yes Special Equipment? Inspire When should patient follow up after surgery? One week Additional Comments: Krystyna[employer] Work Phone: [phone] Telephone encounter Note* Telephone Encounter - Alexjose Janette - 05/09/2024 10:12 AM EST 05-09, Called patient to schedule Inspire Stacey priest mentioned she's having hip replacement Jul 01. I called her Ortho Surgeon at [facility], Dr Iwona Mckeon to ask about timeframe for being safe to have this surgery after her hip replacement recovery. Dr Iwona Mckeon nurse said she would call me back. [employer]11-07-2024 Instructions* Pre-Procedure Instructions - Kary Kaplan RN - 05/02/2024 3:45 PM EST Your surgery/procedure is scheduled at [facility] on 05/09/2024 at 10:30 am Arrival Time 8:30 am [facility] Address: [address] [place] [address], [address] [place] [address] in the Emergency Center Parking lot. Report to the dental front office assistant in the Emergency/Surgery Registration lobby of the hospital. Notify your SURGEON if you develop any illness such as a cold, cough, fever, sore throat, vomiting or are hospitalized between now and your surgery. Please call Pre-Admission Clinic at [phone] if you have any questions prior to surgery. For questions the morning of surgery, call the Pre-op Department at [phone]. Medication Instructions (Do not stop your medications [...] specifically instructed by your surgeon to hold. STOPtaking all herbal products/teas one week prior to [...] [facility], please call [phone] ([phone]). Do not use lotions, creams, powders, perfume, make up, cologne or after-shaves day of surgery. Remove ALL jewelry including wedding rings, body piercings, hair extensions that contain metal, nail vincentian, make-up, and contact lens. You may brush your teeth the morning of surgery, but do not swallow the water. Wear your dentures and partial plates to the hospital (no adhesive). Shower the night the before. If applicable, use the CHG (chlorhexidine gluconate) soap or wipes. Please be advised, [employer] has transitioned to a cashless payment system. What should I bring to the hospital? If you received a green plastic bracelet, bring it with you the day of surgery and your nurse will put it on you. Eyeglass or contact lens case If you will be spending the night, please bring personal care items and leave them in the car untilyou are taken to your room after surgery. [...] following some types of surgeries involving the eyes,ears, sinuses and throat. Always follow your doctor's [...] AND RESPONSIBILITIES As a patient at [facility], you have the right to: Receive medical care and be informed of who is taking care of you Be treated with dignity and respect Have a family member/sales representative door to door of choice and your physician notified of your admission Receive information and actively participate in decisions about your care and treatment Refuse care, treatment and services Decide who may provide your support and speak for you Access yarsanism and spiritual services Participate in ethical issues [...] hospital charges and payment methods Patient/patient sales representative door to door responsibilities are to: Provide information about health status to facilitate care, treatment and services Follow the treatment, plan, keep appointments and speak up when you do not understand the plan Respect the rights of other patients and healthcare personnel Follow organizational rules and regulations that support quality care and a safe environment Fulfill financial obligations as promptly as possible [facility]11-07-2024 Miscellaneous Notes* Pre-Procedure Instructions - Kary Kaplan RN - 05/02/2024 3:45 PM EST Your surgery/procedure is scheduled at [facility] on 05/09/2024 at 10:30 am Arrival Time 8:30 am [facility] Address: [address] [place] [address], [id number] Park in the Emergency Center Parking lot. Report to the dental front office assistant in the Emergency/Surgery Registration lobby of the hospital. Notify your SURGEON if you develop any illness such as a cold, cough, fever, sore throat, vomiting or are hospitalized between now and your surgery. Please call Pre-Admission Clinic at [phone] if you have any questions prior to surgery. For questions the morning of surgery, call the Pre-op Department at [phone]. Medication Instructions (Do not stop your medications [...] specifically instructed by your surgeon to hold. STOPtaking all herbal products/teas one week prior to [...] would like to schedule therapy at a [facility] facility, please call [phone] ([phone]). Do not use lotions, creams, powders, perfume, make up, cologne or after-shaves day of surgery. Remove ALL jewelry including wedding rings, body piercings, hair extensions that contain metal, nail vincentian, make-up, and contact lens. You may brush your teeth the morning of surgery, but do not swallow the water. Wear your dentures and partial plates to the hospital (no adhesive). Shower the night the before. If applicable, use the CHG (chlorhexidine gluconate) soap or wipes. Please be advised, [facility] has transitioned to a cashless payment system. What should I bring to the hospital? If you received a green plastic bracelet, bring it with you the day of surgery and your nurse will put it on you. Eyeglass or contact lens case If you will be spending the night, please bring personal care items and leave them in the car untilyou are taken to your room after surgery. [...] following some types of surgeries involving the eyes,ears, sinuses and throat. Always follow your doctor's [...] AND RESPONSIBILITIES As a patient at [facility], you have the right to: Receive medical care and be informed of who is taking care of you Be treated with dignity and respect Have a family member/sales representative door to door of choice and your physician notified of your admission Receive information and actively participate in decisions about your care and treatment Refuse care, treatment and services Decide who may provide your support and speak for you Access yarsanism and spiritual services Participate in ethical issues [...] hospital charges and payment methods Patient/patient sales representative door to door responsibilities are to: Provide information about health status to facilitate care, treatment and services Follow the treatment, plan, keep appointments and speak up when you do not understand the plan Respect the rights of other patients and healthcare personnel Follow organizational rules and regulations that support quality care and a safe environment Fulfill financial obligations as promptly as possible documented in this [facility]10-25-2024 Miscellaneous Notes* Telephone Encounter - Tevin Rossi MD - 04/19/2024 9:13 AM EDT Surgery Scheduling Request 04/19/24 Patient: Stacey Sahu : 1975 Surgical Procedure(s): DISE Anesthesia: MAC Surgery Time: 30 min Facility Preference: No preference When should patient follow up after surgery? 1-2 weeks * Telephone Encounter - Kashmir Florian - 04/19/2024 9:13 AM EDT Left message to schedule surgery documented in this [facility]10-25-2024 Telephone encounter Note* Telephone Encounter - Tevin Rossi MD - 04/19/2024 9:13 AM EDT Surgery Scheduling Request 04/19/24 Patient: Stacey Sahu : 1975 Surgical Procedure(s): DISE Anesthesia: MAC Surgery Time: 30 min Facility Preference: No preference When should patient follow up after surgery? 1-2 weeks [employer] Work Phone: [phone] Telephone encounter Note* Telephone Encounter - Kashmir Chiqui - 04/19/2024 9:13 AM EDT Left message to schedule surgery [facility]10-25-2024 History of Present illness Narrative* Tevin Rossi MD - 04/19/2024 8:30 AM EDT Images from the original note were not included. [facility] [address] [facility] [id number] SUBJECTIVE: Patient ID (1975): Stacey Sahu is a 48 y.o. female presents today for Chief Complaint Patient presents with inspire consult HPI: Stacey Sahu is a 48 y.o. female seen at the request of Pauline Ryan APRN-* for evaluation of obstructive sleep apnea. Patient reports she was referred by Trinh Eduardo MD of sleep medicine. Patient reports that she has tried using CPAP intermittently for 10 years but cannot tolerate CPAP due to claustrophobia. HISTORY: Past Medical History: Diagnosis Date Anxiety Arthritis Bipolar disorder (CMS-HCC) Chronic pain disorder [...] 09/01/2023 Performed by Pj Gannon MD at [facility] INJECTION SPINE TRANSFORAMINAL Right L 5,1 Nroot Right 05/26/2023 Performed by Pj Gannon MD at [facility] LYMPH NODE BIOPSY RELEASE DEQUERVAINS CONTRACTURE Right 10/17/2018 Performed by Dereck Bagley DO at [facility] THYROIDECTOMY, PARTIAL TONSILLECTOMY TUBAL LIGATION Family [...] Resource Strain: Patient Declined (06/14/2023) Received from Critical access hospital Overall Financial Resource Strain (CARDIA) Difficulty of Paying Living Expenses: Patient declined Food Insecurity: No Food Insecurity (09/12/2023) Hunger Screening Food Insecurity - Worry: Never True Food Insecurity - Inability: Never True Transportation Needs: No Transportation Needs (06/14/2023) Received from Critical access hospital PRAPARE - Transportation Lack of Transportation (Medical): No Lack of Transportation (Non-Medical): No Physical Activity: Unknown (06/14/2023) Received from Critical access hospital Exercise Vital Sign Days of Exercise per Week: 2 days Minutes of Exercise per Session: Patient declined Stress: Patient Declined (06/14/2023) [facility] [place] [facility] Occupational [facility] - Occupational Stress Questionnaire Feeling of Stress : Patient declined Social Connections: Unknown (06/14/2023) Re[facility] from [facility], [facility] Social Connection and Isolation Panel [NHANES] Frequency of Communication with Friends and Family: Patient declined Frequency of Social Gatherings with Friends and Family: Patient declined Attends Episcopal Services: Patient declined Active Member of Clubs or Organizations: Patient declined Attends Club or Organization Meetings: Patient declined Marital Status: Interpersonal Safety: Unknown (08/17/2023) Received from [facility] Safety & Environment Fear of Current or Ex-Partner: Not on file Emotionally Abused: Not on file Physically Abused: Not on file Sexually Abused: Not on file Physically or Sexually Abused: Not on file Housing Instability: Unknown (06/14/2023) Received from [facility], [facility] Housing Stability Vital Sign Unable to [...] discharge, ear pain, postnasal drip, rhinorrhea, sinus pressure,sinus pain and sore throat. Eyes: Negative for [...] (NIRMALA), including the Inspire hypoglossal nerve stimulator (https://www.inspiresleep.com/), tonsillectomy with uvulopalatopharyngoplasty, and hyoid advancement surgery using the Airlift syste m for NIRMALA ([employer]- https://www.[employer]/ ). Stacey Sahu was counseled about the evaluative process for the Inspire upper airway stimulationdevice, which requires performance of drug-induced sleep endoscopy [...] Scribed for and in the presence of Tevin Rossi MD by Varinder Jose (scribe). Varinder Jose 04/19/2024 9:17 AM Provider Statement: I Tevin Rossi MD personally performed the services described in the documentation as described by the above named scribe in my presence. It is both accurate and complete at the time of final signature. Dr. Tevin Rossi 04/19/2024 5:48 PM Please note that parts of this chart were generated using voice recognition M*Modal dictation software. Although every effort was made to ensure the accuracy of this automated clinical administrator, some errors in clinical administrator may have occurred. Varinder Minniear 04/19/24 0747 Varinder Minniear 04/19/24 0909 Varinder Minniear 04/19/24 0910 Varinder Minniear 04/19/24 0917 documented in this [facility] Instructions* Patient Instructions* Tevin Rossi MD - 04/19/2024 8:30 AM EDT Images from the original note were not included. Based on today's evaluation, I recommend: Drug Induced Sleep Endoscopy for further evaluation of Inspire candidacy I recommend that you follow up with me: 1 week post DISE procedure I recommend that you sign up for MY CHART so that I can send you test results and communicate otherinformation pertaining to the management of your health care. The instructions to gain access to [employer] are at the bottom of this summary. If you are not signed up for access to MY CHART and have not received notification of ANY test result within 7 days, please call [phone] to leave a request for your results. During normal business hours, Dr. Rossi and the other health care providers are treating patients in the office or performing surgery, so this will require a follow up telephone call from a health care provider. If youhave not been contacted about your test results, do not assume that your test results are normal. If you need to schedule a test such as a CT scan, Ultrasound, MRI or PET scan, please call [facility] Scheduling at [phone]. If you need to be scheduled for surgery, please call Kashmir Florian Surgery Coordinator at [phone], or Jose at [phone] or our main number [phone] if you have not received a return [...] days before planned surgery: stop taking Non-Steroidal Anti- Inflammatory Drugs (NSAIDs) and certain herbal and weight loss products. (Note: the medications listed are selective and do not include all medications that affect bleeding.) You may need to stop taking aspirin one week (7 days) before planned surgery Please read below Aspirin (and medications that contain aspirin): Many non-prescription (tcqu-ezb-enmexlk or OTC) medications contain aspirin. If you are unsure whether a medication you take has aspirin, please ask your pharmacist or your surgeon's office. You must ask your surgical team if they want you to continuetaking, or stop taking aspirin before your procedure. Medications containing aspirin that should be stopped 7 days before surgery: Saritha-Cannon Anacin Aspirin Fiorinal Ascriptin Pamela Bufferin Lortab [...] L-carnosine Licorice Kava kava Milk thistle Multivitamin Dana-3 Resveratrol Skullcap Chilcoot-Vinton's wort Vitamin E Adipex (phentermine) Jacob (orlistat) Hydroxycut Garcinia Cambogia Raspberry Ketones [id number] should be stopped 14 days before surgery You will receive specific instructions regarding your insulin and anti-coagulant/anti-platelet medications (if applicable). documented in this [facility]10-22-2024 NoteHNO ID: [id number] Author: LOIS MCKEON MD Service: ? Author [...] the winter. Assessment right hip arthritis. Lois Mckeon, [facility]10-22-2024 History of Present illness Narrative* Lois Mckeon MD - 04/16/2024 1:39 PM EDT Follow-up right hip and to go over [...] arthritis. Lois Mckeon MD documented in [facility] History of Present illness Narrative* Pauline Ryan NP - 04/10/2024 8:59 AM EDTAssociated Problem(s): Needs flu shot Pt declined * Pauline Ryan NP - 04/10/2024 8:56 AM EDTAssociated Problem(s): Anxiety Prn buspar * Pauline Ryan NP - 04/10/2024 8:56 AM EDTAssociated Problem(s): Bipolar disorder, unspecified (CMS/HCC) Will increase abilify to 15mg Fu in 6 weeks * Pauline Ryan NP - 04/10/2024 8:56 AM EDTAssociated Problem(s): PAH (pulmonary artery hypertension) (CMS/HCC) Saw cardiology in the past, was on letaris, no longer taking it or fu with cardiology Non compliant with PAP, looking into inspire No chest pain/pressure/dyspnea * Pauline Ryan NP - 04/10/2024 8:55 AM EDTAssociated Problem(s): Neuritis of left median nerve resolved * Pauline Ryan NP - 04/10/2024 8:55 AM EDTAssociated Problem(s): Neuritis of right median nerve resolved * Pauline Ryan NP - 04/10/2024 8:40 AM EDT Images from the original note [...] back next week for results, if no acutefindings may have a scope Neuritis bilat: last visit NSAID, cock up splints-could not tolerate wearing, however sxs are resolved at this time. NIRMALA: not compliant at wearing PAP, did see a specialist in [place] for eval for inspire, and is going [...] right Allergic rhinitis Anxiety 07/25/2023 Bipolar disorder ([facility]) Chest pain 02/09/2012 Chronic GERD Chronic rhinitis 2023 Constipation COVID-19 01/2022 Crohn's disease ([facility]) De Quervain's tenosynovitis, right Dyspnea on exertion Edema of extremities Elevated serum glucose Enlarged thyroid ([facility]) Flank pain 11/08/2022 Gross hematuria 11/08/2022 History of nausea Hot flashes Hyperlipidemia ([facility]) 09/11/2023 Lumbar back pain with radiculopathy affecting right lower extremity Multiple thyroid nodules ([facility]) Nocturia 01/14/2023 Obese 11/08/2022 Obesity, morbid ([facility]) NIRMALA (obstructive sleep apnea) Other acute sinusitis 06/07/2023 Other hyperlipidemia ([facility]/HCC) 12/14/2020 Pain of right upper extremity Pelvic pain 01/14/2023 Pulmonary arterial hypertension ([facility]) Right hip pain Shingles Shortness of breath [...] SURGERY 01/10/2023 r/o isthmus mass, (benign), Dr. Tillman TONSILLECTOMY 1988 TUBAL LIGATION Bilateral 2000 family [...] Addressed This Visit PAH (pulmonary artery hypertension) ([facility]) Saw cardiology in the past, was on letaris, no longer taking it or fu with cardiology Non compliant with PAP, looking into inspire No chest pain/pressure/dyspnea Chronic rhinitis Relevant Medications cetirizine (ZyrTEC) 10 MG tablet Anxiety Prn buspar Bipolar disorder, unspecified ([facility]) - Primary Will increase abilify to 15mg Fu in 6 weeks Relevant Medications ARIPiprazole (Abilify) 15 MG tablet Body mass index (BMI) 38.0-38.9, adult Morbid (severe) obesity due to excess calories ([facility]) Neuritis of left median nerve resolved Neuritis of right median nerve resolved Needs flu shot Pt declined Other Visit Diagnoses Gastroesophageal reflux disease, unspecified whether esophagitis present Relevant Medications omeprazole (PriLOSEC) [address] capsule documented in this encounterBarn[facility] [id number] NoteHNO ID: [id number] Author: LOIS MCKEON MD Service: ? Author Type: Physician Type: Progress Notes Filed: 03/19/2024 10:34 Note Text: She is here for chronic right hip and groin pain. Has been injected multiple times and done therapy. Takes medication. Has progressed to the point where she has pain that is affecting her quality of life. 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 Pain is in her groin and lateral hip. Pain at rest and with physical activities.Review of systems negative for fever, weight loss, malaise, fatigue, significant headache, vision changes, hearing loss, neck swelling, cough, chest pain, shortness of breath, dyspnea on exertion, abdominal pain, nausea, vomiting, diarrhea, urinary dysfunction, upper/lower extremity numbness/tingling/weakness/edema, heat/cold intolerance Exam mildly antalgic gait. Right [...] back after the scan is complete. Lois Mckeon, [facility]09-24-2024 History of Present illness Narrative* Lois Mckeon MD - 03/19/2024 10:32 AM EDT She is here for chronic right hip and groin pain. Has been injected multiple times and done therapy. Takes medication. Has progressed to the point where she has pain that is affecting her quality of life. 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 Pain is in her groin and lateral hip. Pain at restand with physical activities.Review of systems negative for fever, weight loss, malaise, fatigue, significant headache, vision changes, hearing loss, neck swelling, cough, chest pain, shortness of breath, dyspnea on exertion, abdominal pain, nausea, vomiting, diarrhea, urinary dysfunction, upper/lower extremity numbness/tingling/weakness/edema, heat/cold intolerance Exam mildly antalgic gait. Right [...] complete. Lois Mckeon MD documented in this encounterMer[facility]09-24-2024 Instructions* Patient Instructions* Clarissa Zacarias RN - 03/19/2024 10:[address] Mckeon has ordered a cream that will be delivered to your home. The company, [employer], will call or text you from [phone] phone number. Please reply or answer the call to start the process. If you do not hear from them within 48 hours, please call . documented in this encounterMercy Health St. [facility]09-24-2024 History of Present illness Narrative* Paulette Corea RT(R) - 03/19/2024 9:00 AM EDT Radiology Service Progress Note PATIENT NAME: Stacey Sahu DATE OF SERVICE: March 19, 2024 TIME: 9:04 AM PATIENT IDENTITY VERIFICATION COMPLETED USING TWO (2) IDENTIFIERS: Name and Date of confirmedby patient verbally. FALL SCREENING: Has the patient had 2 falls in the last year or 1 fall with injury or currently using an Ambulatory Assistive Device (Walker, Cane, Wheelchair, Crutches, etc.)? No PATIENT GENDER DATA: Female. status: : No status: NO. PATIENT RELEVANT IMPLANT DATA REVIEWED: Not Applicable PATIENT PRESENTS WITH AN IMPLANTABLE OR ATTACHED MACHINE SHOP SPECIALIST: No RADIOLOGY DEPARTMENT: General X-ray: Exam(s) Completed: Pelvis X-Ray: Pelvis with Hip Right PERIPHERAL IV DATA: Not applicable SIGNED BY: RT Rai(R) March 19, 2024 9:04 AM documented in this encounterMercy Health St. [facility]09-24-2024 NoteHNO ID: [id number] Author: PAULETTE COREA RT(Javy) Service: ? Author [...] PATIENT PRESENTS WITH AN IMPLANTABLE OR ATTACHED MACHINE SHOP SPECIALIST: No RADIOLOGY DEPARTMENT: General X-ray: Exam(s) Completed: Pelvis X-Ray: Pelvis with Hip Right PERIPHERAL IV DATA: Not applicable SIGNED BY: RT Rai(R) March 19, 2024 9:04 [facility]09-23-2024 Telephone encounter Note* Telephone Encounter - Clarissa Zacarias RN - 03/18/2024 4:54 PM EDT Left message with pt to be sure to have report as well as images, but we may need an xray if do nothave, he will look at xray and do assessment and determine if surgery will be an option. Clarissa Zacarias RN [facility] Work Phone: 1(217) 343-997209-23-2024 Miscellaneous Notes* Telephone Encounter - Clarissa Zacarias RN - 03/18/2024 4:54 PM EDT Left message with pt to be sure to have report as well as images, but we may need an xray if do nothave, he will look at xray and do assessment and determine if surgery will be an option. Clarissa Zacarias RN * Telephone Encounter - Lupe Betancourt - 03/18/2024 3:59 PM EDT Name of Caller: stacey Relationship to patient: patient Last visit in this department: Visit date not found Reason for Call: Other : has questions about what to expect at her appt on 03/19 Callback number: [phone] documented in this encounterMer[facility]09-23-2024 Telephone encounter Note * Telephone Encounter - Lupe Betancourt - 03/18/2024 3:59 PM EDT Name of Caller: stacey Relationship to patient: patient Last visit in this department: Visit date not found Reason for Call: Other : has questions about what to expect at her appt on 03/19 Callback number: [phone] [facility]09-05-2024 History of Present illness Narrative* Pauline Ryan NP - 02/29/2024 9:12 AM EDTAssociated Problem(s): Neuritis of right median nerve Continue NSAID, get a cock up splint Fu in 6 weeks * Pauline Ryan NP - 02/29/2024 9:12 AM EDTAssociated Problem(s): Neuritis of left median nerve Cont nsaid Trial cock up splint Recheck in 6 weeks * Pauline Ryan NP - 02/29/2024 9:11 AM EDTAssociated Problem(s): Bipolar disorder, unspecified (CMS/[facility]) Cont w abilify at 10mg pt does not want adjustment May take buspar prn if too sedating No call from psych, we will reach out to them Fu in office with me in 6 weeks Sooner if needed * GERARDO MCLAIN - 02/29/2024 8:40 AM EDT Pt has not been taking her buspar. Pt states that the new medication, abilify has been helpful for her. Pt has complaints of tingling/numbness in her left inner wrist down to her last three fingers on and off every day it does cause weakness and weak technology consultant. Pt states it has been going on for a monthnow, she does not recall anything happening that would cause that and sometimes it will do it in her right wrist down to her fingers as well. Pt states it was before taking the new medication: abilify * Pauline Shelby, LOG CHAIN FEEDER - 02/29/2024 8:40 AM EDT Images from the original note [...] Psychiatric/Behavioral: Negative for behavioral problems, dysphoric mood, self- injury and suicidal ideas. The patient is nervous/anxious. [...] Nocturia 01/14/2023 Obese 11/08/2022 Obesity, morbid (CMS/HCC) INRMALA (obstructive sleep apnea) Other acute sinusitis 06/07/2023 [...] SURGERY 01/10/2023 r/o isthmus mass, (benign), Dr. Tillman TONSILLECTOMY 1988 TUBAL LIGATION Bilateral 2000 family [...] Relevant Medications omeprazole (PriLOSEC) [address] jesus documented in this encounterBarnes-Jewish Saint [facility] [id number] Hospital Discharge instructions Patient Education 11/28/2023 09:06:15 Dietary Guidelines [...] about 300 mg of calcium at each meal.Foods that contain 200 500 mg of calcium a serving include: ?8 oz (237 mL) of milk, gqncvmp-yqfnkhtyeqrn-thtbo milk, and calcium- fortifiedfruit juice. Calcium-fortified means that calcium has been [...] the table and allow each person to addtheir own salt to taste. Use vegetable protein, such as beans, textured vegetable protein (TVP), or tofu, instead of meat inpasta, casseroles, and soups. Meal planning Eat less salt, if told by your dietitian. To do this: ?Avoid eating processed or pre-made food. ?Avoid eating fast food. Eat less animal protein, including cheese, meat, poultry, or fish, if told by your dietitian. To dothis: ?Limit the number of times you have meat, poultry, fish, or cheese each week. Eat a diet free of meat at least 2 days a week. ?Eat only one serving each day of meat, poultry, fish, or seafood. ?When you prepare animal proteins, cut pieces into small portion sizes. For most meat and fish, oneserving is about the size of the palm [...] ?Spinach (cooked), rhubarb, beets, sweet potatoes, and [place] chard. ?Peanuts. ?Potato chips, malaysian fries, and baked potatoes with skin on. ?Nuts and nut products. ?Chocolate. If you regularly take a diuretic medicine, make sure to eat at least 1 or 2 servings of fruits or vegetables that are high in potassium each day. These include: ?Avocado. ?Banana. ?[place], prune, carrot, or tomato juice. ?Baked potato. [...] magnesium, fish oil, or vitamin B6. Take lzra-gao-jnsuzup and prescription medicines only as told by [...] Casseroles. Pizza. Lasagna. Frozen meals. Potato chips. Bruneian fries. The items listed above may not be a complete list of foods and beverages you should limit. Contact a dietitian for more information. What foods should I avoid? Talk to your dietitian about specific foods you should avoid based on the type of kidney stones youhave and your overall health. Fruits Grapefruit. The item listed above may not be a complete list of foods and beverages you should avoid. Contact adietitian for more information. Summary Kidney stones are [...] provider. Document Revised: 09/22/2022 Document Reviewed: 09/22/2022 [employer] Patient Education 2022 RADLIVE. Follow Up Care 05/29/2023 15:22:48 With:LESLIE JUNG PA-C, URL Address: [address] [place] [address] When: Unknown [facility] 03-27-2024 Miscellaneous Notes* Telephone Encounter - Nora Garza CNA - 09/20/2023 2:53 PM EDT [facility] called to say that they are out of network for [employer] insurance. A referral form will be sent once she selects an orthopedic in-network documented [facility] encounter[facility] Telephone encounter Note* Telephone Encounter - Nora Garza CNA - 09/20/2023 2:53 PM EDT [facility] called to say that they are out of network for [employer]'s insurance. A referral form will be sent once she selects an orthopedic in-network [facility]03-[facility] History of Present illness Narrative* ADELA Metz - 09/12/2023 7:45 AM EDT [facility] [address] [place] [address] Patient: Stacey Sahu Sex: female : 1975 [...] mechanism. The pain is present inthe right hip (radiating into upper right lateral thigh). The quality of the pain is described as aching, shooting and stabbing. The pain is at a severity of 4/10 (4/10 current; increases to 10/10 byevery evening). The pain is moderate. The pain [...] patches min: NSAIDS, ice/heat, accupuncture, inj at [facility] Mod relief: Narcotics Sign: Steroid inj by Ortho) for the symptoms.The treatment provided moderate relief. The effect of [...] 09/01/2023 Performed by Pj Gannon MD at [facility] IN[facility] SPINE TRANSFORAMINAL Right L 5,1 Nroot Right 05/26/2023 Performed by Pj Gannon MD at [facility] RELEASE DEQUERVAINS CONTRACTURE Right 10/17/2018 Performed by Dereck Bagley DO at [facility] THYROIDECTOM[facility], PARTIAL Allergies Allergen Reactions Penicillins [...] Joint. Pain is elicited with internal and externalrotation of the hip and hip provocative maneuvers [...] Side effects, and possible interactions of these medicationswere reviewed and the medication agreement has been discussed, agreed upon, and signed. The patientunderstands compliance concerns and the requirement of pill [...] in the presence of ADELA METZ by Pauline Dutton CNA. Provider Statement: I, ADELA METZ, personally performed the services described in the documentation,as scribed by Pauline Dutton CNA in my presence, and it is both accurate and complete. Pauline Dutton CNA 09/12/23 0828 ADELA Metz 09/12/23 1317 documented in this encounterSelect [facility] History of Present illness Narrative* ADELA Metz - 08/21/2023 8:15 AM EST [facility] [address] [place] [address] Patient: Stacey Sahu Sex: female : 1975 Age: 48 y.o. PCP: PAULINE RYAN, DRIER ATTENDANT-DIRECTOR OF PERSONNEL 08/21/2023 Stacey Sahu is here for a(n) [...] moderate. The pain has been Fluctuating since onset.Associated symptoms include muscle weakness (RLE). Pertinent negatives include no inability to bearweight, loss of motion, numbness or tingling. She reports no foreign bodies present. The symptoms are aggravated by movement and weight bearing (standing, stairs, sitting). She has tried ice, rest, acetaminophen, heat and NSAIDs (no relief: tylenol, Voltaren gel, Icy hot, Lido patches min: NSAIDS, i ce/heat, accupuncture, inj at [facility] Mod relief: Narcotics Sign: Steroid [...] 05/26/2023 Performed by Pj Gannon MD at [facility] DEQUERVAINS CONTRACTURE Right 10/17/2018 Performed by Dereck Bagley DO at [facility] THY[facility], PARTIAL Allergies Allergen Reactions Penicillins [...] Joint. Pain is elicited with internal and externalrotation of the hip and hip provocative maneuvers [...] is necessary to further evaluate the patients currentpain pathology. For this reason, we will order [...] procedure was described in detail to the patientas well as the potential benefits of pain [...] to be utilized alongside or following the injections.We may also need to consider surgical options if injections fail to provide relief for a reasonableduration. Follow up 2 weeks after procedure The [...] currently prescribeany controlled substance from this practice. The spine [...] would also help these symptoms. The patient isoptimistic about the treatment plan we have laid [...] Consideration will also be given to procedure safetyin that sedation is used in the outpatient setting for any planned procedure. These records will beavailable to the anesthesiologist to tailor a safe [...] in the presence of ADELA METZ by Pauline Dutton CNA. Provider Statement: I, ADELA METZ, personally performed the services described in the documentation,as scribed by Pauline Dutton CNA in my presence, and it is both accurate and complete. Pauline Dutton CNA 08/21/23 0834 ADELA Metz 08/21/23 0908 documented in this encounterVermont Psychiatric Care HospitalAragon Surgical [id number] Instructions* Patient Instructions* Pauline Dutton CNA - 08/21/2023 8:15 AM EST [...] take you to the nearest emergency room. Tellthe emergency room staff that you recently had [...] it back to normal. documented in this encounterPremier Health Atrium Medical CenterShowMe [facility] [id number] Evaluation note* Encounter Date Diagnosis Assessment Notes Treatment Notes Treatment Clinical Notes Jun, COVID-19 (ICD-10 - U07.1) COVID PCR test performed in office today. [...] treatment plan. Patient left in stable condition [facility] Other 01-03-2024 History of Present illness Narrative* Evans Anderson PA-C - 06/28/2023 10:45 AM EST [facility] [address] [place] [address] Patient: Stacey Sahu Sex: female : 1975 Age: 48 y.o. PCP: PAULINE RYAN APRN-NIURKA 06/28/2023 Stacey Sahu is here [...] min: NSAIDS, ice /heat, accupuncture, inj at [facility] Mod relief: Narcotics Sign: Steroid inj by Ortho) for the symptoms. The treatment provided moderate relief. The effect of pain on patient's ADLS: Minimal Impairment. Past Medical History: Diagnosis Date Arthritis Bipolar disorder ([facility] Chronic pain disorder Crohn's colitis ([facility]) Depression GERD (gastroesophageal reflux disease) H/O methicillin resistant Staphylococcus aureus infection Hyperlipidemia Joint pain Pleurisy Pulmonary hypertension ([facility]) Pulmonary hypertension ([facility]) Sleep apnea cpap Past Surgical History: Procedure Laterality Date COLON SURGERY part of bowel removed d/t crohns dx HYSTERECTOMY 2017 INJECTION SPINE TRANSFORAMINAL Right L 5,1 Nroot Right 05/26/2023 Performed by Pj Gannon MD at [facility] DEQUERVAINS CONTRACTURE Right 10/17/2018 Performed by Dereck Bagley DO at [facility], PARTIAL Allergies Allergen Reactions Penicillins [...] the presence of EVANS ANDERSON PA-C by Pauline Dutton CNA. Provider Statement: I, EVANS ANDERSON PA-C, personally performed the services described in the documentation, as scribed by Pauline Dutton CNA in my presence, and it is both accurate and complete. Pauline Dutton CNA 06/28/23 1208 Evans Anderson PA-C 06/28/23 1229 documented in this encounterProMedica Health [id number] Hospital Discharge instructions Patient Education 05/29/2023 15:17:27 Kidney Stones, Lioa-zn-Kzzy Kidney Stones Kidney stones are rock-like masses [...] Follow these instructions at home: Medicines Take efch-xdp-ivqhqcg and prescription medicines only as told by [...] provider. Document Revised: 02/14/2022 Document Reviewed: 02/14/2022 Adhysteria Patient Education 2022 RADLIVE. Follow Up Care 11/08/2022 13:29:10 With:JOSE FELIX, Lynn Palafox, URL Address: [facility] [address], [place] [phone] When: Unknown Comments:4 mos w/ metabolic w/u [facility] 02-09-2023 NoteCONSULTATION CONSULTATION DATE: 08/04/2022 HISTORY OF [...] to her pain symptomatology. She did see Adrianna Jackman NP-C and she ordered a CT [...] medications in three months, unless otherwise indicated.[facility] [id number] NotePROCEDURE: XR HIP RT 2 3V WO [...] authenticated by: PREET RODRIGEZ Date: 2022-07-07 15:33[facility] [id number] NoteCONSULTATION CONSULTATION DATE: 07/07/2022 HISTORY OF PRESENT [...] procedure, and she agrees to move forward.[facility] [id number] NoteCONSULTATION CONSULTATION DATE: 06/09/2022 HISTORY OF PRESENT [...] will re-evaluate with application of the diclofenac.[facility] 04-26-2022 Hospital Discharge instructions Patient Education 04/26/2022 [...] 06/12/2006 Document Revised: 03/01/2019 Document Reviewed: 05/12/2017 Adhysteria Patient Education 2020 RADLIVE. 04/26/2022 12:17:47 Hematuria, Adult Hematuria, Adult Hematuria [...] Follow these instructions at home: Medicines Take owqj-oss-jtbltup and prescription medicines only as told by [...] or the blood stops without treatment. Take ifuk-fke-mfxcywa and prescription medicines only as told by your health care provider. Drink enough fluid to keep your urine clear or pale yellow. This information is not intended to replace advice given to you by your health care provider. Make sure you discuss any questions you have with your health care provider. Document Released: 06/12/2006 Document Revised: 11/06/2019 Document Reviewed: 07/15/2017 Adhysteria Patient Education 2019 RADLIVE. Follow Up Care 04/22/2022 08:39:58 With:JOSE FELIX, Lynn Palafox, URL Address: [address] [place] [address] [phone] When:Within 6 Month(s) Comments:6 mo fu with [...] Will be followed up in the office.[facility] [id number] NoteCONSULTATION CONSULTATION DATE: 03/22/2022 CHIEF COMPLAINT: Right hip/leg pain. HISTORY OF PRESENT ILLNESS: This is a very pleasant, 46-year-old female who was referred to us by Pauline Ryan. The patient has had right thigh [...] will follow up subsequent to that. CC: Pauline Ryan [facility]09-13-2022 Hospital Discharge instructions Patient Education [...] With:Lynn GARCIA Address: [facility] [address] [place] [address]- Business (1) When: Unknown Comments:Office will call to schedule follow up [facility]08-29-2022 History of Present illness Narrative* Shiraz Roy, - 02/21/2022 12:46 PM EDT Images from the original note were not included. [facility] - Medical Spine [...] gel - no benefit Therapies PT at [facility] in [place] in June 2021 - 2 times per week for 1 month, exercises, TENS, ice - no relief Ice/heat Prior spine/[facility] interventions: -12/31/21 Dr. Page: R GTB CSI - minimal relief for 1 day. 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07[facility] History of Present illness Narrative* Jorge Luis Page DO - 01/17/2022 3:42 PM EDT SERVICE DATE: January 17, 2022 PCP: Pauline Ryan, DIRECTOR OF PERSONNEL, DIRECTOR OF PERSONNEL Patient was self-referred. Subjective Patient ID: Stacey [...] x 4 Crohn's disease without complication (HCC) [id number] Pulmonary Htn (Hcc) Obese Nirmala (Obstructive Sleep [...] PM documented in this encounterMer[facility]07-08-2022 History of Present illness Narrative* Jorge Luis Page DO - 12/31/2021 12:54 PM EDT Associated Order(s): Large Joint Arthro/Inj: R greater trochanteric bursa Post-Procedure Diagnose(s): Trochanteric bursitis of right hip SERVICE DATE: December 31, 2021 PCP: Pauline Ryan CNP, DIRECTOR OF PERSONNEL Patient was self-referred. Subjective Patient ID: Stacey [...] x 4 Crohn's disease without complication (HCC) [id number] Pulmonary Htn (Hcc) Obese Nirmala (Obstructive Sleep [...] trochanteric bursa Informed Consent Consent Obtained: Verbal [facility] Protocol A moment to CARE was completed. [...] PM documented in this encounterMer[facility]06-16-2022 Evaluation note* Encounter Date Diagnosis Assessment Notes Treatment Notes Treatment Clinical Notes Nov, Trochanteric bursitis, right hip (ICD-10 - M70.61) Nov,therOut a long discussion with the patient regarding her MRI findings and further treatment options. Aswe discussed there is increased signal on her MRI near the insertion of the gluteus medius and minimus tendons suggestive of tearing. There is also some increased signal suggestive of a greater trochanteric bursitis. I also explained to her that I did not appreciate any concerning findings into thethigh. She felt much better after this given [...] refer her to [facility]. Christian [facility]. [facility] Other 05-25-2022 Evaluation note* Encounter Date Diagnosis Assessment Notes Treatment Notes Treatment Clinical Notes October, Right hip pain (ICD-10 - M25.551 ) October,therOn a long discussion with the patient regarding etiology of her symptoms. At this point I explainedto her that I do not appreciate anything specifically on exam or on x-ray events concerning but thefact that she is had this pain now for over 6 months and conservative treatment has not provided her much relief at all, I would recommend getting an MRI to fully evaluate to make sure there is not something that were missing. We will get an MRI of the right femur with and without contrast and I will see her with those results. [facility] Other 06-21-2021 History of Past illness Narrative* Problem Noted DateResolved DateGeneralized abdominal pain documented as of this encounter (statuses as of 12/31/2021) [facility] History of Past illness Narrative* ProblemNoted Date Resolved DateGeneralized abdominal pain//1documented as of this encounter (statuses as of 01/17/2022) [facility] History of Past illness Narrative* ProblemNoted Date Resolved DateGeneralized abdominal pain//1documented as of this encounter (statuses as of 03/13/2022) [facility] Plan note No data available for this section [facility] Future Appointments Appointment Date:10/24/2022 11:30:00 AM Scheduled Provider:Lynn GARCIA MD Location:[facility] Appointment Type:URO Office Visit [facility] Evaluation + Plan note Future Appointments Appointment Date:05/29/2023 02:30:00 PM Scheduled Provider:Lynn GARCIA MD Location:[facility] Appointment Type:URO Office Visit Future Scheduled Tests Laboratory* Calprotectin, Fecal 11/24/22 * CBC w/ Auto Diff 11/24/22 * Comprehensive Metabolic Panel 11/24/22 * C-Reactive Protein 11/24/22 Radiology* CT Abdomen/Pelvis w/contrast (enterography) 11/24/22 [facility] Evaluation + Plan note Future Appointments Appointment Date:05/29/2023 02:30:00 PM Scheduled Provider:Lynn GARCIA MD Location:[facility] Appointment Type:URO Office Visit Future Scheduled Tests Laboratory* Calprotectin, Fecal 11/24/22 * CBC w/ Auto Diff 11/24/22 * Comprehensive Metabolic Panel 11/24/22 * C-Reactive Protein 11/24/[address] [facility] Future Appointments Appointment Date:02/02/2023 01:00:00 PM Scheduled Provider:Ignacia KHAN MD Location:[facility] Appointment Type:[facility] Follow Up Appointment Date:05/29/2023 02:30:00 PM Scheduled Provider:Lynn GARCIA MD Location:[facility] Appointment Type:URO Office Visit Future Scheduled Tests Laboratory* Calprotectin, Fecal 11/24/[address] [facility] Future Appointments Appointment Date:05/29/2023 02:30:00 PM Scheduled Provider:Lynn GARCIA MD Location:[facility] Appointment Type:URO Office Visit Diagnostic Tests Pending * Calprotectin, Fecal 02/02/[address] [facility] Future Appointments Appointment Date:10/02/2023 03:00:00 PM Scheduled Provider:Lynn GARCIA MD Location:[facility] Appointment Type:URO Office Visit [facility] Evaluation + Plan note Future Appointments Appointment Date:09/04/2025 11:40:00 AM Scheduled Provider:MISHA Patterson APRN, [facility] X Location:[facility] Appointment Type:URO Office Visit [facility] [place] evaluation note* Diagnosis Trochanteric bursitis of right hip- Primary Enthesopathy of hip region documented in this encounter [facility]un[facility] foundation noteNo SchoolControl 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 documented in this encounter [facility] HospitalEvalun[facility] foundation note* Diagnosis Tendinopathy of right gluteal region- Primary Trochanteric bursitis of right hip Enthesopathy of hip region Chronic bilateral low back pain without sciatica Lumbar spondylosis Lumbosacral spondylosis without myelopathy documented in this encounter [facility]* Diagnosis Exhausted vascular access Other [...] region and thigh documented in this encounter [facility] HospitalEvalun[facility] foundation note* Diagnosis Exhausted vascular access Other specified [...] region and thigh documented in this encounter [facility]Evalun[facility] foundation note* Diagnosis Acute otitis media, unspecified otitis [...] inoculation against influenza documented in this encounter [facility] HealthcareEvaluation note* Diagnosis Exhausted vascular access Other [...] by other means documented in this encounter [facility]* Diagnosis Exhausted vascular access Other [...] region and thigh documented in this encounter [facility] note* Diagnosis Acute otitis media, unspecified otitis [...] thigh * Assessment & Plan Note - Jose Tejeda APRN.CNP - 06/05/2024 10:30 AM ESTAssociated Problem(s): BMI 37.0-37.9, adult Assessment: diet and exercise encouraged * Assessment & Plan Note - Jose Tejeda APRN.CNP - 06/05/2024 10:30 AM ESTAssociated Problem(s): Other hyperlipidemia Assessment: diet controlled, stable Follows up with PCP * Assessment & Plan Note - Jose Tejeda APRN.CNP - 06/05/2024 10:19 AM ESTAssociated Problem(s): Pulmonary HTN (HCC) Assessment: EF 65% per ECHO 11/22/22 Follows up with cardiology, last office visit 03/06/24 Asymptomatic * Assessment & Plan Note - Jose Tejeda APRN.CNP - 06/05/2024 10:07 AM ESTAssociated Problem(s): GERD (gastroesophageal reflux disease) Assessment: managed with med, stable Follows up with PCP * Assessment & Plan Note - Jose Tejeda APRN.CNP - 06/05/2024 10:07 AM ESTAssociated Problem(s): NIRMALA (obstructive sleep apnea) Assessment: non-compliant with CPAP documented in this encounter [facility] HospitalEvalunem[facility] foundation note* Diagnosis Bipolar disorder, current episode mixed, moderate (CMS/HCC)- Primary Chronic rhinitis Gastroesophageal reflux disease, unspecified whether esophagitis present BMI 38.0-38.9,adult Neuritis of left median nerve Neuritis of right median nerve Bipolar disorder, unspecified (CMS/HCC) Bipolar disorder, unspecified documented in this encounter [facility] HealthcareEvaluation note* Diagnosis Bipolar disorder, current episode mixed, moderate (CMS/HCC)- Primary Chronic rhinitis Gastroesophageal reflux disease, unspecified whether esophagitis present BMI 38.0-38.9,adult Neuritis of left median nerve Neuritis of right median nerve Bipolar disorder, unspecified (CMS/HCC) Bipolar disorder, unspecified documented in this encounter [facility] HealthcareEvaluation note* Diagnosis Exhausted vascular access Other [...] right hip- Primary documented in this encounter [facility]Evalun[facility] foundation note* Diagnosis Exhausted vascular access Other specified [...] by other means documented in this encounter [facility]* Diagnosis Lumbar radiculopathy- Primary Thoracic or lumbosacral neuritis or radiculitis, unspecified [facility]* Diagnosis Chronic right hip pain [facility]* Diagnosis Chronic right hip pain- Primary Lumbar neuritis Chronic right hip pain- Primary Chronic right hip pain [facility]* Diagnosis Chronic right hip pain- Primary [facility]* Diagnosis NIRMALA (obstructive sleep apnea)- Primary Obstructive sleep apnea (adult) (pediatric) Obstructive sleep apnea- Primary Obstructive sleep apnea (adult) (pediatric) Obstructive sleep apnea Obstructive sleep apnea (adult) (pediatric) [facility]* Diagnosis NIRMALA (obstructive sleep apnea)- Primary Obstructive sleep apnea (adult) (pediatric) Obstructive sleep apnea Obstructive sleep apnea (adult) (pediatric) Obstructive sleep apnea- Primary Obstructive sleep apnea (adult) (pediatric) Obstructive sleep apnea Obstructive sleep apnea (adult) (pediatric) NIRMALA (obstructive sleep apnea) Obstructive sleep apnea (adult) (pediatric) [facility]* Diagnosis Acute otitis media, unspecified [...] soft tissues of limb Bipolar disorder, unspecified ([facility]/HCC)- Primary Bipolar disorder, unspecified Morbid (severe) obesity due to excess calories ([facility]) Gastro-esophageal reflux disease without esophagitis Body mass index (BMI) 38.0-38.9, adult Pulmonary hypertension, unspecified ([facility]) Crohn's disease of both small and large intestine without complications ([facility]/HCC) Chronic right hip pain Bipolar disorder, current episode mixed, moderate ([facility])- Primary Chronic rhinitis Gastroesophageal reflux disease, unspecified whether esophagitis present BMI 38.0-38.9,adult Neuritis of left median nerve Neuritis of right median nerve Bipolar disorder, unspecified ([facility]) Bipolar disorder, unspecified Bipolar disorder, unspecified ([facility] [address]/HCC)- Primary Bipolar disorder, unspecified Neuritis of right median nerve Neuritis of left median nerve Morbid (severe) obesity due to excess calories ([facility] [address]) Body mass index (BMI) 38.0-38.9, adult Anxiety Anxiety state, unspecified PAH (pulmonary artery hypertension) ([facility] [address]) Other chronic pulmonary heart diseases Chronic rhinitis Gastroesophageal reflux disease, unspecified whether esophagitis present Needs flu shot Need for prophylactic vaccination and inoculation against influenza Bipolar 1 disorder ([facility] [address])- Primary NIRMALA (obstructive sleep apnea) Obstructive sleep apnea (adult) (pediatric) PAH (pulmonary artery hypertension) ([facility] [address]) Other chronic pulmonary heart diseases Chronic right hip pain Morbid (severe) obesity due to excess calories ([facility] [address]) Anxiety Anxiety state, unspecified Chronic rhinitis Body mass index (BMI) 38.0-38.9, adult Anxiety- Primary Anxiety state, unspecified Morbid (severe) obesity due to excess calories ([facility] [address]) Mixed hyperlipidemia ([facility] [address]/HCC) Mixed hyperlipidemia Body mass index (BMI) 38.0-38.9, adult Bipolar disorder, unspecified ([facility] [address]) Bipolar disorder, unspecified Pulmonary hypertension, unspecified ([facility] [address]) Crohn's disease of both small and large intestine without complications ([facility] [address]) NIRMALA (obstructive sleep apnea) Obstructive sleep apnea (adult) (pediatric) PAH (pulmonary artery hypertension) ([facility] [address]) Other chronic pulmonary heart diseases Gastro-esophageal reflux disease without esophagitis S/P total right hip arthroplasty Encounter for screening mammogram for malignant neoplasm of breast Gastroesophageal reflux disease, unspecified whether esophagitis present Dizziness and giddiness documented in this encounter [facility]* Diagnosis Obstructive sleep apnea- Primary Obstructive sleep apnea (adult) (pediatric) [facility] Diagnosis Acute otitis media, unspecified [...] region and thigh documented in this encounter [facility]Evaluation [facility]* Diagnosis Acute otitis media, unspecified [...] Morbid (severe) obesity due to excess calories ([facility] [address]) Gastro-esophageal reflux disease without esophagitis Body mass [...] Morbid (severe) obesity due to excess calories ([facility]) Body mass index (BMI) 38.0-38.9, adult Anxiety Anxiety state, unspecified PAH (pulmonary artery hypertension) ([facility]) Other chronic pulmonary heart diseases Chronic rhinitis Gastroesophageal reflux disease, unspecified whether esophagitis present Needs flu shot Need for prophylactic vaccination and inoculation against influenza Bipolar 1 disorder ([facility])- Primary NIRMALA (obstructive sleep apnea) Obstructive sleep apnea (adult) (pediatric) PAH (pulmonary artery hypertension) ([facility]) Other chronic pulmonary heart diseases Chronic right hip pain Morbid (severe) obesity due to excess calories ([facility]) Anxiety Anxiety state, unspecified Chronic rhinitis Body mass index (BMI) 38.0-38.9, adult Anxiety- Primary Anxiety state, unspecified Morbid (severe) obesity due to excess calories ([facility]) Mixed hyperlipidemia Mixed hyperlipidemia Body mass index (BMI) 38.0-38.9, adult Bipolar disorder, unspecified ([facility]) Bipolar disorder, unspecified Pulmonary hypertension, unspecified ([facility]) Crohn's disease of both small and large intestine without complications ([facility]) NIRMALA (obstructive sleep apnea) Obstructive sleep apnea (adult) (pediatric) PAH (pulmonary artery hypertension) ([facility]) Other chronic pulmonary heart diseases Gastro-esophageal reflux disease without esophagitis S/P total right hip arthroplasty Encounter for screening mammogram for malignant neoplasm of breast Gastroesophageal reflux disease, unspecified whether esophagitis present Dizziness and giddiness Dizziness and giddiness- Primary NIRMALA (obstructive sleep apnea) Obstructive sleep apnea (adult) (pediatric) Morbid (severe) obesity due to excess calories ([facility]) Bipolar disorder, unspecified ([facility]) Bipolar disorder, unspecified Mixed hyperlipidemia Mixed hyperlipidemia Anxiety Anxiety state, unspecified Chronic right hip pain Gastroesophageal reflux disease, unspecified whether esophagitis present Left hip pain Pain in joint, pelvic region and thigh Chronic right hip pain- Primary NIRMALA (obstructive sleep apnea) Obstructive sleep apnea (adult) (pediatric) Dizziness and giddiness Primary hypertension Unspecified essential hypertension Morbid (severe) obesity due to excess calories ([facility] [facility]) Bipolar 1 disorder (HCC) Anxiety Anxiety state, unspecified Elevated glucose level PAH (pulmonary artery hypertension) ([facility]) Other chronic pulmonary heart diseases Bipolar disorder, unspecified (HCC) Bipolar disorder, unspecified Mixed hyperlipidemia Mixed hyperlipidemia Gastroesophageal reflux disease, unspecified whether esophagitis present documented in this encounter [facility] HealthcareEvaluation note* Diagnosis Acute otitis media, unspecified [...] Morbid (severe) obesity due to excess calories ([facility] [facility]) Gastro-esophageal reflux disease without esophagitis Body mass [...] Morbid (severe) obesity due to excess calories ([facility] [facility]) Body mass index (BMI) 38.0-38.9, adult Anxiety [...] Morbid (severe) obesity due to excess calories ([facility] [facility]) Anxiety Anxiety state, unspecified Chronic rhinitis Body mass index (BMI) 38.0-38.9, adult Anxiety- Primary Anxiety state, unspecified Morbid (severe) obesity due to excess calories ([facility] [facility]) Mixed hyperlipidemia Mixed hyperlipidemia Body mass index [...] Morbid (severe) obesity due to excess calories ([facility] [facility]) Bipolar disorder, unspecified (HCC) Bipolar disorder, unspecified [...] Morbid (severe) obesity due to excess calories ([facility] [facility]) Bipolar 1 disorder ([facility]) Anxiety Anxiety state, unspecified Elevated glucose level PAH (pulmonary artery hypertension) (HCC) Other chronic pulmonary heart diseases Bipolar disorder, unspecified (HCC) Bipolar disorder, unspecified Mixed hyperlipidemia Mixed hyperlipidemia Gastroesophageal reflux disease, unspecified whether esophagitis present Chronic right hip pain- Primary documented in this encounter [facility] HealthcareEvaluation note* Diagnosis Onset Date Resolution Status Admit Date Bipolar disorder acuteJuly 2024 11:14amBMI 45.0-49.9, adultacuteJuly 2024 11:14am Encounter for adjustment and management of other implanted nervous system dacute January 15, 2025 11:14amObstructive sleep apneaacuteJuly 2024 11:14am Pulmonary hypertensionacuteJuly 2024 11:14am [facility] Work Phone: Evaluation note* Diagnosis Acute otitis [...] Morbid (severe) obesity due to excess calories ([facility] [facility]) Gastro-esophageal reflux disease without esophagitis Body mass index (BMI) 38.0-38.9, adult Pulmonary hypertension, unspecified (HCC) Crohn's disease of both small and large intestine without complications (HCC) Chronic right hip pain Bipolar disorder, current episode mixed, moderate ([facility])- Primary Chronic rhinitis Gastroesophageal reflux disease, unspecified whether esophagitis present BMI 38.0-38.9,adult Neuritis of left median nerve Neuritis of right median nerve Bipolar disorder, unspecified (HCC) Bipolar disorder, unspecified Bipolar disorder, unspecified (HCC)- Primary Bipolar disorder, unspecified Neuritis of right median nerve Neuritis of left median nerve Morbid (severe) obesity due to excess calories ([facility] [facility]) Body mass index (BMI) 38.0-38.9, adult Anxiety Anxiety state, unspecified PAH (pulmonary artery hypertension) ([facility]) Other chronic pulmonary heart diseases Chronic rhinitis Gastroesophageal reflux disease, unspecified whether esophagitis present Needs flu shot Need for prophylactic vaccination and inoculation against influenza Bipolar 1 disorder ([facility])- Primary NIRMALA (obstructive sleep apnea) Obstructive sleep apnea (adult) (pediatric) PAH (pulmonary artery hypertension) (HCC) Other chronic pulmonary heart diseases Chronic right hip pain Morbid (severe) obesity due to excess calories ([facility] [facility]) Anxiety Anxiety state, unspecified Chronic rhinitis Body mass index (BMI) 38.0-38.9, adult Anxiety- Primary Anxiety state, unspecified Morbid (severe) obesity due to excess calories ([facility] [facility]) Mixed hyperlipidemia Mixed hyperlipidemia Body mass index [...] Morbid (severe) obesity due to excess calories ([facility] [facility]) Bipolar disorder, unspecified (HCC) Bipolar disorder, unspecified [...] Morbid (severe) obesity due to excess calories ([facility] [facility]) Bipolar 1 disorder (HCC) Anxiety Anxiety state, unspecified Elevated glucose level PAH (pulmonary artery hypertension) (HCC) Other chronic pulmonary heart diseases Bipolar disorder, unspecified (HCC) Bipolar disorder, unspecified Mixed hyperlipidemia Mixed hyperlipidemia Gastroesophageal reflux disease, unspecified whether esophagitis present Chronic right hip pain- Primary S/P total right hip arthroplasty- Primary Chronic right hip pain documented in this encounter [facility] HealthcareEvaluation note* Diagnosis Acute otitis media, unspecified [...] Morbid (severe) obesity due to excess calories ([facility] [facility]) Gastro-esophageal reflux disease without esophagitis Body mass [...] Morbid (severe) obesity due to excess calories ([facility] [facility]) Body mass index (BMI) 38.0-38.9, adult Anxiety Anxiety state, unspecified PAH (pulmonary artery hypertension) ([facility]) Other chronic pulmonary heart diseases Chronic rhinitis Gastroesophageal reflux disease, unspecified whether esophagitis present Needs flu shot Need for prophylactic vaccination and inoculation against influenza Bipolar 1 disorder ([facility])- Primary NIRMALA (obstructive sleep apnea) Obstructive sleep apnea (adult) (pediatric) PAH (pulmonary artery hypertension) (HCC) Other chronic pulmonary heart diseases Chronic right hip pain Morbid (severe) obesity due to excess calories ([facility]) Anxiety Anxiety state, unspecified Chronic rhinitis Body mass index (BMI) 38.0-38.9, adult Anxiety- Primary Anxiety state, unspecified Morbid (severe) obesity due to excess calories ([facility]) Mixed hyperlipidemia Mixed hyperlipidemia Body mass index (BMI) 38.0-38.9, adult Bipolar disorder, unspecified ([facility]) Bipolar disorder, unspecified Pulmonary hypertension, unspecified ([facility]) Crohn's disease of both small and large intestine without complications ([facility]) NIRMALA (obstructive sleep apnea) Obstructive sleep apnea (adult) (pediatric) PAH (pulmonary artery hypertension) ([facility]) Other chronic pulmonary heart diseases Gastro-esophageal reflux disease without esophagitis S/P total right hip arthroplasty Encounter for screening mammogram for malignant neoplasm of breast Gastroesophageal reflux disease, unspecified whether esophagitis present Dizziness and giddiness Dizziness and giddiness- Primary NIRMALA (obstructive sleep apnea) Obstructive sleep apnea (adult) (pediatric) Morbid (severe) obesity due to excess calories ([facility]) Bipolar disorder, unspecified ([facility]) Bipolar disorder, unspecified Mixed hyperlipidemia Mixed hyperlipidemia Anxiety Anxiety state, unspecified Chronic right hip pain Gastroesophageal reflux disease, unspecified whether esophagitis present Left hip pain Pain in joint, pelvic region and thigh Chronic right hip pain- Primary NIRMALA (obstructive sleep apnea) Obstructive sleep apnea (adult) (pediatric) Dizziness and giddiness Primary hypertension Unspecified essential hypertension Morbid (severe) obesity due to excess calories ([facility]) Bipolar 1 disorder ([facility]) Anxiety Anxiety state, unspecified Elevated glucose level PAH (pulmonary artery hypertension) ([facility]) Other chronic pulmonary heart diseases Bipolar disorder, unspecified ([facility]) Bipolar disorder, unspecified Mixed hyperlipidemia Mixed hyperlipidemia Gastroesophageal reflux disease, unspecified whether esophagitis present Chronic right hip pain- Primary Encounter to establish care with new provider- Primary Bipolar 1 disorder ([facility]) Anxiety Anxiety state, unspecified NIRMALA (obstructive sleep apnea) Obstructive sleep apnea (adult) (pediatric) Mixed hyperlipidemia Mixed hyperlipidemia Gastroesophageal reflux disease, unspecified whether esophagitis present Chronic right hip pain Rash and nonspecific skin eruption Rash and other nonspecific skin eruption Pulmonary hypertension, unspecified (HCC) Primary hypertension Unspecified essential hypertension Morbid (severe) obesity due to excess calories ([facility] [facility]) documented in this encounter [facility] HealthcareEvaluation note* Diagnosis Acute otitis media, unspecified [...] Morbid (severe) obesity due to excess calories ([facility] [facility]) Gastro-esophageal reflux disease without esophagitis Body mass [...] Morbid (severe) obesity due to excess calories ([facility] [facility]) Body mass index (BMI) 38.0-38.9, adult Anxiety [...] Morbid (severe) obesity due to excess calories ([facility] [facility]) Anxiety Anxiety state, unspecified Chronic rhinitis Body mass index (BMI) 38.0-38.9, adult Anxiety- Primary Anxiety state, unspecified Morbid (severe) obesity due to excess calories ([facility] [facility]) Mixed hyperlipidemia Mixed hyperlipidemia Body mass index [...] Morbid (severe) obesity due to excess calories ([facility] [facility]) Bipolar disorder, unspecified (HCC) Bipolar disorder, unspecified [...] Morbid (severe) obesity due to excess calories ([facility] [facility]) Bipolar 1 disorder (HCC) Anxiety Anxiety state, unspecified Elevated glucose level PAH (pulmonary artery hypertension) (HCC) Other chronic pulmonary heart diseases Bipolar disorder, unspecified (HCC) Bipolar disorder, unspecified Mixed hyperlipidemia Mixed hyperlipidemia Gastroesophageal reflux disease, unspecified whether esophagitis present Chronic right hip pain- Primary Encounter to establish care with new provider- Primary Bipolar 1 disorder (HCC) Anxiety Anxiety state, unspecified NIRMALA (obstructive sleep apnea) Obstructive sleep apnea (adult) (pediatric) Mixed hyperlipidemia Mixed hyperlipidemia Gastroesophageal reflux disease, unspecified whether esophagitis present Chronic right hip pain Rash and nonspecific skin eruption Rash and other nonspecific skin eruption Pulmonary hypertension, unspecified (HCC) Primary hypertension Unspecified essential hypertension Morbid (severe) obesity due to excess calories ([facility]) Chest pressure- Primary Other chest pain Left arm numbness Disturbance of skin sensation Acute pain of left shoulder documented in this encounter [facility]* Diagnosis Acute otitis media, unspecified [...] Morbid (severe) obesity due to excess calories ([facility] [facility]) Gastro-esophageal reflux disease without esophagitis Body mass index (BMI) 38.0-38.9, adult Pulmonary hypertension, unspecified (HCC) Crohn's disease of both small and large intestine without complications (HCC) Chronic right hip pain Bipolar disorder, current episode mixed, moderate ([facility])- Primary Chronic rhinitis Gastroesophageal reflux disease, unspecified whether esophagitis present BMI 38.0-38.9,adult Neuritis of left median nerve Neuritis of right median nerve Bipolar disorder, unspecified (HCC) Bipolar disorder, unspecified Bipolar disorder, unspecified (HCC)- Primary Bipolar disorder, unspecified Neuritis of right median nerve Neuritis of left median nerve Morbid (severe) obesity due to excess calories ([facility]) Body mass index (BMI) 38.0-38.9, adult Anxiety Anxiety state, unspecified PAH (pulmonary artery hypertension) ([facility]) Other chronic pulmonary heart diseases Chronic rhinitis Gastroesophageal reflux disease, unspecified whether esophagitis present Needs flu shot Need for prophylactic vaccination and inoculation against influenza Bipolar 1 disorder ([facility])- Primary NIRMALA (obstructive sleep apnea) Obstructive sleep apnea (adult) (pediatric) PAH (pulmonary artery hypertension) ([facility]) Other chronic pulmonary heart diseases Chronic right hip pain Morbid (severe) obesity due to excess calories ([facility]) Anxiety Anxiety state, unspecified Chronic rhinitis Body mass index (BMI) 38.0-38.9, adult Anxiety- Primary Anxiety state, unspecified Morbid (severe) obesity due to excess calories ([facility]) Mixed hyperlipidemia Body mass index (BMI) 38.0-38.9, [...] Morbid (severe) obesity due to excess calories ([facility] [facility]) Bipolar disorder, unspecified (HCC) Bipolar disorder, unspecified Mixed hyperlipidemia Anxiety Anxiety state, unspecified Chronic right hip pain Gastroesophageal reflux disease, unspecified whether esophagitis present Left hip pain Pain in joint, pelvic region and thigh Chronic right hip pain- Primary NIRMALA (obstructive sleep apnea) Obstructive sleep apnea (adult) (pediatric) Dizziness and giddiness Primary hypertension Unspecified essential hypertension Morbid (severe) obesity due to excess calories ([facility]) Bipolar 1 disorder ([facility]) Anxiety Anxiety state, unspecified Elevated glucose level PAH (pulmonary artery hypertension) ([facility]) Other chronic pulmonary heart diseases Bipolar disorder, unspecified ([facility]) Bipolar disorder, unspecified Mixed hyperlipidemia Gastroesophageal reflux disease, unspecified whether esophagitis present Chronic right hip pain- Primary Encounter to establish care with new provider- Primary Bipolar 1 disorder ([facility]) Anxiety Anxiety state, unspecified NIRMALA (obstructive sleep apnea) Obstructive sleep apnea (adult) (pediatric) Mixed hyperlipidemia Gastroesophageal reflux disease, unspecified whether esophagitis present Chronic right hip pain Rash and nonspecific skin eruption Rash and other nonspecific skin eruption Pulmonary hypertension, unspecified ([facility]) Primary hypertension Unspecified essential hypertension Morbid (severe) obesity due to excess calories ([facility]) Left arm numbness- Primary Disturbance of skin sensation Chest pressure Other chest pain documented in this encounter [facility] Narrative - Reported* Type Description Date Medical History acid reflux Surgical Historybiopsy of intestinesSurgical Historyhysterectomy DataSphere Other Hospital Discharge instructions No data available for this section [facility] InstructionsNot on filedocumented in this encounter [facility] on filedocumented in this [facility] on filedocumented in this [facility] on filedocumented in this [facility]Not on filedocumented in this encounter [facility] No data available for this section [facility] for [facility] (narrative)* Diagnostic Procedure Only (Routine) - ClosedSpecialtyDiagnoses / ProceduresReferred By ContactReferred To ContactXR IMAGING Diagnoses Pain in right hip Procedures XR HIP GENERAL 3V PELV/AP/LAT RIGHT RADEX HIP UNILATERAL WITH PELVIS 2-3 VIEWS Mayito Gifford PA-C [address] [place] [address] Xr Imaging [place] [id number] Referral IDStatusC[facility] HospitalStpatterson DateExpiration DateVisits RequestedVisits [id number] Auto-Generated Referral / [facility] for referral (narrative)* - Pending ReviewSpecialty Diagnoses / ProceduresReferred By ContactReferred To ContactPhysical Therapy Diagnoses Status post right hip replacement Procedures CONSULT TO PHYSICAL THERAPY Lois Mckeon MD [address] [place] [address] Referral IDStatus[facility] DateExpiration DateVisits RequestedVisits [id number] [facility] for referral (narrative)* Outpatient Procedure (Routine) - New RequestSpecialtyDiagnoses / ProceduresReferred By ContactReferred To ContactOHIOHEALTH [facility] Diagnoses Pre-op evaluation Procedures ECG COMPLETE ECG ROUTINE ECG W/LEAST 12 LDS W/I&R Jose Tejeda APRN.DIRECTOR OF PERSONNEL [address] [place] [address] [facility] [place] [address] [place] [address] Referral IDStatusConstanceStlizzie DateExpiration DateVisits RequestedVisits [id number] Request Auto-Generated Referral [facility] for referral (narrative)* Diagnostic Procedure Only (Routine) - Pending ReviewSpecialtyDiagnoses / ProceduresReferred By Contact Referred To ContactXR IMAGING Diagnoses Status post right hip replacement Procedures XR HIP GENERAL 3V PELV/AP/LAT RIGHT RADEX HIP UNILATERAL WITH PELVIS 2-3 VIEWS Mayito Gifford PA-C [address] [place] [address] Xr Imaging [place] [address] Referral IDStatusReasonStart DateExpiration DateVisits RequestedVisits [id number] Review Auto-Generated Referral / [facility] for referral (narrative)* Consultation (Routine) - Pending ReviewSpecialtyDiagnoses / ProceduresReferred By ContactReferred To ContactOrthopedic Surgery Diagnoses Chronic right hip pain Imani Krueger APRN-DIRECTOR OF PERSONNEL [address] [place] [address] Bang Cuellar MD [address] [place] [address] Referral IDStatusReasonStart DateExpiration DateVisits RequestedVisits [id number] Review Specialty Services Required / [facility] (narrative)No reason for referral information availableCleveland Clinic Work Phone: Reason for visit Narrative* Diagnostic Procedure Only (Routine) - Pending ReviewSpecialtyDiagnoses / ProceduresReferred By Contact Referred To ContactXR IMAGING Diagnoses Status post right hip replacement Procedures XR HIP GENERAL 3V PELV/AP/LAT RIGHT RADEX HIP UNILATERAL WITH PELVIS 2-3 VIEWS Mayito Gifford PA-C [address] [place] [address] Xr Imaging [facility] Referral IDStatusReasonStart DateExpiration DateVisits RequestedVisits [id number] Review Auto-Generated Referral / [facility] Summary Purpose Family History No Family [...] No Advanced Directives Records FoundDocuments on File TypeDate RecordedPatient RepresentativeExplanationAdvance Directive(s)12/12/2020 8:14 PMTypeDate RecordedPatient RepresentativeExplanationAdvance Directive(s) 12/12/2020 8:14 PM Advance Directive Response Recorded Date/ Time Advance Directives No December 11 3:06pm Reason for Referral SpecialtyDiagnoses / ProceduresReferred By ContactReferred To Contact Diagnoses Chronic right hip pain Procedures Case request operating room: INJECTION BURSA LARGE JOINT RIGHT Imani Krueger, DRIER ATTENDANT-DIRECTOR OF PERSONNEL [address] [place] [address] Referral IDStatusReasonStart DateExpiration DateVisits RequestedVisits [id number] Review/[id number] / ProceduresReferred By ContactReferred To ContactMR IMAGING Diagnoses Pain of right hip Procedures MRI HIP WO IVCON RIGHT MRI ANY JT LOWER EXTREM W/O CONTRAST Lois Le MD [address] [place] [address] Mr Imaging [place] [address] Referral IDStatusReasonStart DateExpiration DateVisits RequestedVisits [id number] Request Auto-Generated Referral /[id number] / ProceduresReferred By ContactReferred To Contact Diagnoses Trochanteric bursitis of right hip Tendinopathy of right gluteal region Chronic bilateral low back pain without sciatica Lumbar spondylosis Procedures CONSULT TO CHIROPRACTOR OFFICE/OUTPATIENT [facility] 60-74 MINUTES Shiraz Roy, DO [address] [place] [address] Referral IDStatusReasonStart DateExpiration DateVisits RequestedVisits [id number] Review PCP Requested Referral [id number] / ProceduresReferred By ContactReferred To [facility] Diagnoses Trochanteric bursitis of right hip Tendinopathy of right gluteal region Procedures CONSULT TO SPORTS MEDICINE OFFICE/OUTPATIENT [facility] 60-74 MINUTES Shiraz Roy, DO [address] [place] [address] Referral IDStatusReasonStart DateExpiration DateVisits RequestedVisits [id number] PCP Requested Referral [id number] / ProceduresReferred By ContactReferred To [facility] Diagnoses Trochanteric bursitis of right hip Lumbago-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 Procedures [facility]PATIENT [facility] 60-74 MINUTES Jorge Luis Page, DO [facility] [address] [place] [address] Referral IDStatusReasonStart DateExpiration DateVisits RequestedVisits [id number] PCP Requested Referral Reason evaluate and treat. Gluteal tendon tear vs greater trochanteric bursitis Please refer to Bang Christian MD, Orthopaedic Surgery, [facility] Diagnosis 1 Trochanteric bursiti s, right hip (M70.61) Referral Organization [facility] Referring Provider First Name Alexis Referring Provider Last Name Dany ARDON Referring Provider Specialty Orthopedic Surgery Referred Organization [facility] Referred Address [address],[place], [place],[address] Referred Provider Specialty ORTHOPEDIC S URGEON Referral Priority Routine Medications Administered Section Medication OrderMAR ActionAction DateDoseRateSite bupivacaine (PF) 0.5 % (5 mg/mL) 5 mL injection 5 mL, Injection - FOR ORTHO USE ONLY, ONE TIME INJECTION, 1 dose, Starting on Mon12/31/21 at 1309, Until Mon12/31/21 at 1309 Given12/31/2021 1:09 PM EDT5 mL dexAMETHasone sodium phosphate 4 mg injection (DECADRON) 4 mg, Injection - FOR ORTHO USE ONLY, ONE TIME INJECTION, 1 dose, Starting on Mon12/31/21 at 1309, Until Mon12/31/21 at 1309 Given12/31/2021 1:09 PM EDT4 mg Chief Complaint and Reason for Visit [...] and content) DATE CREATED AUTHOR 12/19/2017 [facility] DATE CREATED AUTHOR AUTHOR'S ORGANIZ ATION 12/08/2021 [facility] DATE CREATED AUTHOR AUTHOR'S ORGANIZ ATION 12/04/2022 [facility] DATE CREATED AUTHOR AUTHOR'S ORGANIZ ATION 07/07/2024 [facility] DATE CREATED AUTHOR AUTHOR'S ORGANIZ ATION 08/24/2024 [facility] DATE CREATED AUTHOR AUTHOR'S ORGANIZ ATION 09/08/2024 [facility] DATE CREATED AUTHOR AUTHOR'S ORGANIZ ATION 02/16/2025 [facility] DATE CREATED AUTHOR AUTHOR'S ORGANIZ ATION 03/08/2025 [facility] DATE CREATED AUTHOR AUTHOR'S ORGANIZ ATION 03/20/2025 [facility] DATE CREATED AUTHOR AUTHOR'S ORGANIZ ATION 03/29/2025 [facility] DATE CREATED AUTHOR AUTHOR'S ORGANIZ ATION 04/02/2025 [facility] REASON FOR VISIT (unrecogniz ed section and content) ReasonCommentsNewSpecialtyDiagnoses / ProceduresReferred By ContactReferred To ContactOrthopedics / ORTHOPAEDIC SURGERY Diagnoses Greater Trochanteric Bursitis right hip vs Gluteal Tendon tear *OUTSIDE IMG PT TO BRING Procedures LANA NEW NO XRAY Alexis Saenz II, MD [address] [place] [address] Jorge Luis Page, DO [facility] [address] [place] [address] Referral IDStatusReasonStart DateExpiration DateVisits RequestedVisits [id number] Financial Clearance Not Required [id number] UpReasonCommentsNew Patient Evaluation Lower back pain/Right side sciaticaSpecialtyDiagnoses / ProceduresReferred By ContactReferred To [facility] Diagnoses Trochanteric bursitis of right hip Lumbago-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 Procedures [facility] OFF[facility]PATIENT [facility] 60-74 MINUTES Jorge Luis Page, [place] [address] Referral IDStatusReasonStart DateExpiration DateVisits RequestedVisits [id number] PCP Requested Referral [id number]d consultReasonCommentsRadio Gen RMP SpecialtyDiagnoses / ProceduresReferred By ContactReferred To ContactXR IMAGING Diagnoses Pain in right hip Procedures XR HIP GENERAL 3V PELV/AP/LAT RIGHT RADEX HIP UNILATERAL WITH PELVIS 2-3 VIEWS Mayito Gifford PA-C [address] [place], [place] [address] [place] [address] Referral IDStatusReasonStart DateExpiration DateVisits RequestedVisits [id number] Auto-Generated Referral [id number] PatientSurgical consultResults - MriSurgical consultReasonCommentsSchedule SurgeryReasonCommentsBipolarReason CommentsQuestionSee noteReasonCommentsEstablished PatientSurgical consultPost Op Surgical consultReasonCommentsHip PainReasonCommentsMed RefillReasonCommentsHip PainReasonCommentsinspire consultSpecialtyDiagnoses / ProceduresReferred By ContactReferred To ContactOtolaryngology Diagnoses NIRMALA (obstructive sleep apnea) Procedures SC OFFICE OUTPATIENT VISIT 60-74 MINS HIGH MDM AMB REFERRAL TO ENT Trinh Eduardo MD [address] [place] [address] Phone: tel: fax: Tevin Rossi MD [address] [facility] [address] [place] [address] Phone: tel: fax: Referral IDStatusReasonStart DateExpiration DateVisits RequestedVisits [id number] Review/[id number]-byJbuskv Onset DateCommentsSleep Lab10/31/2024PAPReasonCommentsAnxietyReasonComments Establish CareReasonCommentsNumbnessPatient is here for left arm numbness that started yesterday morning. No trama to the area was noted.ReasonComments Follow-up Source Comments (unrecognize d section and content) In the event this informatio n is protected by the Federal Confidentiality of Alcohol and Drug Abuse Patient Records regulations: The Federal rules restrict any use of the information to criminally investigate or prosecute any alcohol or drug abuse patient.[facility] Hospital[facility] the event this information is protected by the Federal Confidentiality of Alcohol and Drug Abuse Patient Records regulations: The Federal rules restrict any use of the information to criminally investigate or prosecute any alcohol or drug abuse patient.[facility] HospitalIn the event this information is protected by the Federal Confidentiality of Alcohol and Drug Abuse Patient Records regulations: The Federal rules restrict any use of the information to criminally investigate or prosecute any alcohol or drug abuse patient.[facility] HospitalIn the event this information is protected by the Federal Confidentiality of Alcohol and Drug Abuse Patient Records regulations: The Federal rules restrict any use of the information to criminally investigate or prosecute any alcohol or drug abuse patient.[facility] HospitalIn the event this information is protected by the Federal Confidentiality of Alcohol and Drug Abuse Patient Records regulations: The Federal rules restrict any use of the information to criminally investigate or prosecute any alcohol or drug abuse patient.[facility] HospitalIn the event this information is protected by the Federal Confidentiality of Alcohol and Drug Abuse Patient Records regulations: The Federal rules restrict any use of the information to criminally investigate or prosecute any alcohol or drug abuse patient.[facility] HospitalIn the event this information is protected by the Federal Confidentiality of Alcohol and Drug Abuse Patient Records regulations: The Federal rules restrict any use of the information to criminally investigate or prosecute any alcohol or drug abuse patient.[facility] HospitalIn the event this information is protected by the Federal Confidentiality of Alcohol and Drug Abuse Patient Records regulations: The Federal rules restrict any use of the information to criminally investigate or prosecute any alcohol or drug abuse patient.[facility] HospitalIn the event this information is protected by the Federal Confidentiality of Alcohol and Drug Abuse Patient Records regulations: The Federal rules restrict any use of the information to criminally investigate or prosecute any alcohol or drug abuse patient.[facility] HospitalIn the event this information is protected by the Federal Confidentiality of Alcohol and Drug Abuse Patient Records regulations: The Federal rules restrict any use of the information to criminally investigate or prosecute any alcohol or drug abuse patient.[facility] HospitalIn the event this information is protected by the Federal Confidentiality of Alcohol and Drug Abuse Patient Records regulations: The Federal rules restrict any use of the information to criminally investigate or prosecute any alcohol or drug abuse patient.[facility] HospitalIn the event this information is protected by the Federal Confidentiality of Alcohol and Drug Abuse Patient Records regulations: The Federal rules restrict any use of the information to criminally investigate or prosecute any alcohol or drug abuse patient.[facility] Care Teams (unrecognized sec tion and content) Team MemberRelationshipSpecialtyStart DateEnd Date Pauline Ryan CNP PCP - GeneralFamily Practice07/22/16 Adán Torres Obstetrics07/22/16 Alexis Saenz II, MD [address] [place] [address] ReferringOrthopedics12/13/21Team MemberRelationshipSpecialtyStart DateEnd Date Pauline Ryan, DIRECTOR OF PERSONNEL PCP - GeneralFamily Practice07/22/16 Adán Torres DO Obstetrics07/22/16 Alexis Saenz II, MD [address] [place] [address] ReferringOrthopedics12/13/21Team MemberRelationshipSpecialtyStart DateEnd Date Pauline Ryan, DIRECTOR OF PERSONNEL PCP - GeneralFamily Practice07/22/16 Adán Torres DO Obstetrics07/22/16 Alexis Saenz II, MD [address] [place] [address] ReferringOrthopedics12/13/21Team MemberRelationshipSpecialtyStart DateEnd Date Pauline Ryan, DIRECTOR OF PERSONNEL PCP - GeneralFamily Medicine07/22/16 Adán Torres DO Obstetrics07/22/16 Alexis Saenz II, MD [address] [place] [address] ReferringOrthopedics12/13/21 Angel Delgado DO [address] [place] [address] ReferringOrthopedics03/08/24Team MemberRelationshipSpecialtyStart DateEnd Date Pauline Ryan DIRECTOR OF PERSONNEL PCP - [facility] Medicine07/22/16 Adán Torres DO 07/22/16 Alexis Saenz II, MD [address] [place] [address] ReferringOrthopedics12/13/21 Angel Delgado DO [address] [place] [address] ReferringOrthopedics03/08/24Team MemberRelationshipSpecialtyStart DateEnd Date Pauline Ryan DIRECTOR OF PERSONNEL PCP - [facility] Medicine07/22/16 Adán Torres DO 07/22/16 Alexis Saenz II, MD [address] [place] [address] ReferringOrthopedics12/13/21 Angel Delgado DO [address] [place] [address] ReferringOrthopedics03/08/24Team MemberRelationshipSpecialtyStart DateEnd Date Yuriy Martins MD [address] [place] [address] P[facility] - [facility]08/17/23 Pauline Ryan NP [address] [place] [address] PCP - [facility]12/25/23 Pauline Ryan NP [address] [place] [address] Nurse PractitionerSoutheast Georgia Health [facility]08/17/23Team MemberRelationshipSpecialtyStart DateEnd Date Yuriy Martins MD [address] [place] [address] PCP - [facility]08/17/23 Pauline Ryan NP [address] [place] [address] PCP - [facility]12/25/23 Pauline Ryan NP [address] [place] [address] Nurse Practitionermi Medicine08/17/23Team MemberRelationshipSpecialtyStart DateEnd Date Pauline Ryan CNP PCP - Generalmily [facility]07/22/16 Adán Torres DO Obstetrics07/22/16 Alexis Saenz II, MD [address] [place] [address] ReferringOrthopedics12/13/21 Angel Delgado DO [address] [place] [address] ReferringOrthopedics03/08/24Team MemberRelationshipSpecialtyStart DateEnd Date Pauline Ryan DIRECTOR OF PERSONNEL PCP - [facility]07/22/16 Adán Torres DO Obstetrics07/22/16 Alexis Saenz II, MD [address] [place] [address] ReferringOrthopedics12/13/21 Angel Delgado DO [address] [place] [address] ReferringOrthopedics03/08/24Team MemberRelationshipSpecialtyStart DateEnd Date Pauline Ryan NP [address] [place] [address] PCP - [facility]12/25/23 Yuriy Martins MD [address] [place] [address] PCP - [facility]05/29/24 Pauline Ryan NP [address] [place] [address] Nurse Practitionermily Medicine08/17/23Team MemberRelationshipSpecialtyStart DateEnd Date Pauline Ryan NP [address] [place] [address] PCP - [facility]12/25/23 Yuriy Martins MD [address] [place] [address] PCP - [facility]05/29/24 Pauline Ryan NP [address] [place] [address] Nurse PractitionerSoutheast [facility]08/17/23Team MemberRelationshipSpecialtyStart DateEnd Date Pauline Ryan, DIRECTOR OF PERSONNEL PCP - [facility]07/22/16 Adán Torres DO Obstetrics07/22/16 Alexis Saenz II, MD [address] [place] [address] ReferringOrthopedics12/13/21 Angel Delgado DO [address] [place] [address] ReferringOrthopedics03/08/24Team MemberRelationshipSpecialtyStart DateEnd Date Pauline Ryan DIRECTOR OF PERSONNEL PCP - GeneralFamily Medicine07/22/16 Adán Torres DO Obstetrics07/22/16 Alexis Saenz II, MD [address] [place] [address] ReferringOrthopedics12/13/21 Angel Delgado DO [address] [place] [address] ReferringOrthopedics03/08/24Team MemberRelationshipSpecialtyStart DateEnd Date Pauline Ryan NP [address] [place] [address] PCP - [facility]12/25/23 Yuriy Martins MD [address] [place] [address] PCP - GeneralFamily Pyhsivmc55/4/24 Pauline Ryan NP [address] [place] [address] Nurse Practitionermily Medicine08/17/23Team MemberRelationshipSpecialtyStart DateEnd Date Pauline Ryan NP [address] [place] [address] PCP - [facility]12/25/23 Yuriy Martins MD [address] [place] [address] PCP - [facility]05/29/24 Pauline Ryan NP [address] [place] [address] Nurse PractitionerS[facility]08/17/23Team MemberRelationshipSpecialtyStart DateEnd Date Yuriy Martins MD [address] [place] [address] PCP - [facility]08/17/23 Pauline Ryan NP [address] [place] [address] PCP - [facility]12/25/23 Pauline Ryan NP [address] [place] [address] Nurse PractitionerS[facility]08/17/23Team MemberRelationshipSpecialtyStart DateEnd Date Yuriy Martins MD [address] [place] [address] PCP - [facility]08/17/23 Pauline Ryan NP [address] [place] [address] PCP - [facility]12/25/23 Pauline Ryan NP [address] [place] [address] Nurse PractitionerS[facility]08/17/23Team MemberRelationshipSpecialtyStart DateEnd Date Yuriy Martins MD [address] [place] [address] PCP - [facility]08/17/23 Pauline Ryan NP [address] [place] [address] PCP - [facility]12/25/23 Pauline Ryan NP [address] [place] [address] Nurse PractitionerS[facility]08/17/23Team MemberRelationshipSpecialtyStart DateEnd Date Yuriy Martins MD [address] [place] [address] PCP - [facility]08/17/23 Pauline Ryan NP [address] [place] [address] PCP - [facility]12/25/23 Pauline Ryan NP [address] [place] [address] Nurse PractitionerS[facility]08/17/23Team MemberRelationshipSpecialtyStart DateEnd Date Pauline Ryan APRN-DIRECTOR OF PERSONNEL PCP - [facility]10/03/18Team MemberRelationshipSpecialtyStart Date End Date Pauline Ryan, DRIER ATTENDANT-DIRECTOR OF PERSONNEL PCP - [facility] [place] Practitioner10/03/18Team MemberRelationshipSpecialtyStart Date End Date Pauline Ryan NP [address] [place] [address] PCP - [facility]12/25/23 Yuriy Martins MD [address] [place] [address] PCP - [facility]05/29/24 Pauline Ryan NP [address] [place] [address] Nurse PractitionerSoutheast [facility]08/17/23Team MemberRelationshipSpecialtyStart DateEnd Date Pauline Ryan DIRECTOR OF PERSONNEL PCP - [facility]07/22/16 Adán Torres DO Obstetrics07/22/16 Alexis Saenz II, MD [address] [place] [address] ReferringOrthopedics12/13/21 Angel Delgado DO [address] [place] [address] ReferringOrthopedics03/08/24Team MemberRelationshipSpecialtyStart DateEnd Date Pauline Ryan DIRECTOR OF PERSONNEL PCP - GeneralFamily Medicine07/22/16 Adán Torres DO [facility]07/22/16 Alexis Saenz II, MD [address] [place] [address] ReferringOrthopedics12/13/21 Angel Delgado DO [address] [place] [address] ReferringOrthopedics03/08/24Team MemberRelationshipSpecialtyStart DateEnd Date Pauline Ryan, DRIER ATTENDANT-[facility] [address] [place] [address] PCP - GeneralNurse Practitioner10/03/18Team MemberRelationshipSpecialtyStart Date End Date Pauline Ryan, DRIER ATTENDANT-DIRECTOR OF PERSONNEL [address] [place] [address] PCP - GeneralNurse Practitioner10/03/18Team MemberRelationshipSpecialtyStart Date End Date Pauline Ryan, DRIER ATTENDANT-[facility] [address] [place] [address] PCP - GeneralNurse Practitioner10/03/18Team MemberRelationshipSpecialtyStart Date End Date Pauline Ryan, DRIER ATTENDANT-[facility] [address] [place] [address] PCP - GeneralNurse Practitioner10/03/18Team MemberRelationshipSpecialtyStart Date End Date Pauline Ryan [facility] [address] [place] [address] PCP - GeneralNurse Practitioner10/03/18Team MemberRelationshipSpecialtyStart Date End Date Pauline Ryan [facility] PCP - GeneralNurse Practitioner10/03/18Team MemberRelationshipSpecialtyStart Date End Date Pauline Ryan [facility] PCP - GeneralNurse Practitioner10/03/18Team MemberRelationshipSpecialtyStart Date End Date Pauline Ryan [facility] PCP - GeneralNurse Practitioner10/03/18Team MemberRelationshipSpecialtyStart Date End Date Pauline Ryan [facility] PCP - GeneralNurse Practitioner10/03/18Team MemberRelationshipSpecialtyStart Date End Date Pauline Ryan NP [address] [place] [address] PCP - [facility]12/25/23 Yuriy Martins MD [address] [place] [address] PCP - [facility]05/29/24 Pauline Ryan NP [address] [place] [address] Nurse PractitionerS[facility]08/17/23Team MemberRelationshipSpecialtyStart DateEnd Date Pauline Ryan NP [address] [place] [address] PCP - [facility]12/25/23 Yuriy Martins MD [address] [place] [id number] PCP - [facility]05/29/24 Pauline Ryan NP [address] [place] [address] Nurse PractitionerSoutheast [facility]08/17/23Team MemberRelationshipSpecialtyStart DateEnd Date Pauline Ryan NP [address] [place] [address] PCP - [facility]12/25/23 Yuriy Martins MD [address] [place] [address] PCP - [facility]05/29/24 Pauline Ryan NP [address] [place] [address] Nurse PractitionerS[facility]08/17/23Team MemberRelationshipSpecialtyStart DateEnd Date Pauline Ryan, DRIER ATTENDANT-DIRECTOR OF PERSONNEL PCP - [facility]10/03/18Team MemberRelationshipSpecialtyStart Date End Date Pauline Ryan NP [address] [place] [address] PCP - [facility]12/25/23 Yuriy Martins MD [address] [place] [address] PCP - [facility]05/29/24 Pauline Ryan NP [address] [place] [address] Nurse PractitionerS[facility]08/17/23Team MemberRelationshipSpecialtyStart DateEnd Date Pauline Ryan NP [address] [place] [address] PCP - [facility]12/25/23 Yuriy Martins MD [address] [place] [address] PCP - [facility]05/29/24 Pauline Ryan NP [address] [place] [address] Nurse PractitionerS[facility]08/17/23Team MemberRelationshipSpecialtyStart DateEnd Date Pauline Ryan NP [address] [place] [address] PCP - [facility]12/25/23 Yuriy Martins MD [address] [place] [address] PCP - [facility]05/29/24 Pauline Ryan NP [address] [place] [address] Nurse PractitionerS[facility]08/17/23Team MemberRelationshipSpecialtyStart DateEnd Date Pauline Ryan NP [address] [place] [address] PCP - [facility]12/25/23 Yuriy Martins MD [address] [place] [address] PCP - [facility]05/29/24 Pauline Ryan NP [address] [place] [address] Nurse Pract[facility]08/17/23Team MemberRelationshipSpecialtyStart DateEnd Date Pauline Ryan NP [address] [place] [address] PCP - [facility]12/25/23 Yuriy Martins MD [address] [place] [address] PCP - [facility]05/29/24 Pauline Ryan NP [address] [place] [address] Nurse Pract[facility]08/17/23Team MemberRelationshipSpecialtyStart DateEnd Date Pauline Ryan, DRIER ATTENDANT-DIRECTOR OF PERSONNEL PCP - [facility]10/03/18Team MemberRelationshipSpecialtyStart Date End Date Pauline Ryan NP [address] [place] [address] PCP - [facility]12/25/23 Yuriy Martins MD [address] [place] [address] PCP - [facility]05/29/24 Pauline Ryan NP [address] [place] [address] Nurse Pract[facility]erS[facility]08/17/23Team MemberRelationshipSpecialtyStart DateEnd Date Pauline Ryan NP [address] [place] [address] PCP - [facility]12/25/23 Yuriy Martins MD [address] [place] [address] PCP - [facility]05/29/24 Pauline Ryan NP [address] [place] [address] Nurse Pract[facility]08/17/23Team MemberRelationshipSpecialtyStart DateEnd Date Pauline Ryan NP [address] [place] [address] PCP - [facility]12/25/23 Yuriy Martins MD [address] [place] [address] PCP - [facility]05/29/24 Pauline Ryan NP [address] [place] [address] Nurse PractitionerS[facility]08/17/23Team MemberRelationshipSpecialtyStart DateEnd Date Pauline Ryan NP [address] [place] [address] PCP - [facility]12/25/23 Yuriy Martins MD [address] [place] [address] PCP - [facility]05/29/24 Pauline Ryan NP [address] [place] [address] Nurse PractitionerS[facility]08/17/23 Team Status: Active Member Role Status Dates Pauline Ryan Primary Care Provider Active Team Status: Inactive Member Role Status Dates Paulette Warren MD Attending Provider Active S tart: January 15, 2025 End: January 15, 2025Pauline RyanPrimary Care ProviderActiveStart: January 15, 2025 End: January 15, 2025Team MemberRelationshipSpecialtyStart DateEnd Date Pauline Ryan NP [address] [place] [address] PCP - [facility]12/25/23 Yuriy Martins MD [address] [place] [address] [facility] Pauline Ryan NP [address] [place] [address] Nurse PractitionerFami Medicine08/17/23Team MemberRelationshipSpecialtyStart DateEnd Date Pauline Ryan NP [address] [place] [address] PCP - [facility]12/25/23 Yuriy Martins MD [address] [place] [address] PCP - Generalmi Yjggbjuy68/4/24 Pauline Ryan NP [address] [place] [address] Nurse PractitionerF[facility] Medicine08/17/23Team MemberRelationshipSpecialtyStart DateEnd Date Pauline Ryan NP [address] [place] [address] PCP - [place] [address] Yuriy Martins MD [address] [place] [address] PCP - [facility]05/29/24 Pauline Ryan NP [address] [place] [address] Nurse PractitionerS[facility]08/17/23Team MemberRelationshipSpecialtyStart DateEnd Date Pauline Ryan NP [address] [place] [address] PCP - [facility]12/25/23 Mckenna Bishop MD [address] [place] [address] PCP - [facility]03/10/25 Laxmi Dudley NP [address] [place] [address] Nurse PractitionerS[facility]03/10/25Team MemberRelationshipSpecialtyStart DateEnd Date Pauline Ryan NP [address] [place] [address] PCP - [facility]12/25/23 Mckenna Bishop MD [address] [place] [address] PCP - [facility]03/10/25 Laxmi Dudley NP [address] [place] [place] [address] Nurse PractitionerFamily Medicine03/10/25Team MemberRelationshipSpecialtyStart DateEnd Date Pauline Ryan NP [address] [place] [address] PCP - [facility]12/25/23 Mckenna Bishop MD [address] [place] [address] [facility] - [facility]03/10/25 Laxmi Dudley NP [address] [place] [address] Nurse PractitionerS[facility]03/10/25Team MemberRelationshipSpecialtyStart DateEnd Date Pauline Ryan NP [address] [place] [address] PCP - [facility]12/25/23 Mckenna Bishop MD [address] [place] [address] PCP - [facility]03/10/25 Laxmi Dudley NP [address] [place] [address] Nurse PractitionerS[facility]03/10/25Team MemberRelationshipSpecialtyStart DateEnd Date Pauline Ryan NP [address] [place] [address] PCP - [facility]12/25/23 Mckenna Bishop MD [address] [place], [place] [address] PCP - [facility]03/10/25 Laxmi Dudley NP [address] [place], [place] [address] Nurse PractitionerS[facility]03/10/25Team MemberRelationshipSpecialtyStart DateEnd Date Pauline Ryan NP [address] [place] [address] PCP - [facility]12/25/23 Mckenna Bishop MD [address] [place], [place] [address] PCP - [facility]03/10/25 Laxmi Dudley NP [address] [place], [place] [address] Nurse PractitionerS[facility]03/10/25 Goals (unrecognized section and content) Goals may [...] BE BASED ON THE PRIMARY CLINICAL RECORDS. [facility] [employer] provides no warranty or guarantee of the accuracy or completeness of information in this document.
--- NOTE | 2025-04-17 09:02 | PC.NURSE ---
Nursing Note Cardiac Stress Test Reviewed: Medication, allergies and patient history reviewed. Stress Test: [x ] Patient tolerated stress test well. [ ] Patient unable to tolerate walking on treadmill. Switched to Lexiscan stress test. [ ] No chest pain noted per patient [x ] Chest pain that resolved prior to leaving stress lab. [ ] No dyspnea noted. [x ] Dyspnea that resolved prior to leaving stress lab. [x ] Patient left stress lab asymptomatic and hemodynamically stable. [ ] Patient taken to the Emergency Room due to non-resolving symptoms following stress test. [x ] Patient achieved target heart rate. [ ] Patient unable to achieve target heart rate. [ ] Aminophylline administered as reversal agent to Lexiscan (Regadenoson). [ ] Nitro administered. Nursing Comments:Pt had regular TM test done. Pt had 3/10 chest pain that she states is no worse then what she has had while at home. Pt stated her hip hurt which is why she was unable to continue walking but pt did reach target HR. Pt rested for roughly 4 minutes and CP resolved. Left stress lab with no symptoms stated she felt back to normal.
--- NOTE | 2025-04-18 18:06 | PM.STRESS ---
Stress Test Stress Test Allergies Allergy/AdvReac Type Severity Reaction Status Date / Time penicillin G Allergy Severe Fever Verified 11/25/24 13:36 Requesting physician: LIZ ROBERTO Procedure: This is a treadmill exercise stress test performed at the [facility] on 04/17/2025. The patient exercised on the treadmill according to the Malvin protocol. Baseline heart rate was 87 BPM and maximum heart rate was 166 BPM, representing 96% of maximum predicted heart rate. Baseline blood pressure was 142/86 and peak blood pressure was 184/104. Exercise time was 3 minutes and 40 seconds, the patient reached stage 2 of the protocol and achieved 6.1 METS. The test was stopped due to target heart being achieved. General Information: Reason for Stress Test: Chest pain. Cardiac History and Risk Factors: Hypertension. Resting 12 - Lead Electrocardiogram: Normal sinus rhythm, normal ECG. Stress Test: Protocol: Malvin. Exercise Capacity: Fair. Blood Pressure Response: Resting hypertension, exaggerate blood pressure response to exercise. Rhythm: Rare PVCs. ST - Response: No ischemic changes. Patient Response: chest pain 3/10 that resolved within 4 minutes of resting. Interpretation: 1. Negative treadmill stress test for exercise induced ischemic ST changes. 2. Diane treadmill score of 0 is associated with intermediate risk for long-term cardiac events.
== END 2025-04-17 08:20 | disposition home or self-care (01) ==
LOC: CARD 08:21
PROVIDERS: Visit Provider Internal Medicine Interventional Cardiology
DX: R07.89 Other chest pain (principal)
CPT/HCPCS: 93017